=== PATIENT | female | born 1955 | race Caucasian/White ===

== ENCOUNTER 2023-03-30 09:46 | Outpatient (OUT) | payer MEDICARE, OTHER, SELFPAY ==
--- NOTE | 2023-03-30 09:55 | MM_ITS ---
Patient: JESUS WOLF Exam Date: 03/30/2023 : 1955 Gender:F Ordering : DR JANIA SAEED Admission #: [id number] Family : DR PATE TazAjay KAMILA Order #: [id number] CLICK HERE TO VIEW EXAM RADIOLOGY REPORT PROCEDURE: MM TOMOSYNTHESIS SCREENING BI COMPARISON: MG MAMM SCREEN JEANIE W CAD, 04/01/2021. INDICATIONS: Screening mammogram Z12.31 Calculator Name NCI Breast Cancer Risk Assessment Tool 5 Year Breast Cancer Risk 1.30% Lifetime Breast Cancer Risk 4.60% Personal Breast Cancer No Personal Ovarian Cancer No Treatments None Family Cancers Mother with colon cancer at age 72. LOCATION: [facility] BREAST COMPOSITION: Scattered areas fibroglandular density. FINDINGS: DIAGNOSTIC CATEGORY 1--NEGATIVE. RIGHT BREAST: No significant suspicious finding. No significant change has occurred. LEFT BREAST: No significant suspicious finding. No significant change has occurred. RECOMMENDATIONS: ROUTINE MAMMOGRAM AND CLINICAL EVALUATION IN 12 MONTHS. PLEASE NOTE: A NORMAL MAMMOGRAM DOES NOT EXCLUDE THE POSSIBILITY OF BREAST CANCER. A CLINICALLY SUSPICIOUS PALPABLE LUMP SHOULD BE BIOPSIED. Dictated by: Ady Amaro M.D. on 03/31/2023 at 11:47 Approved by: Ady Amaro M.D. on 03/31/2023 at 11:53
== END 2023-03-30 09:47 | disposition home or self-care (01) ==
PROVIDERS: PCP Family Medicine; Visit Provider Nurse Practitioner Family
DX: Z12.31 Encounter for screening mammogram for malignant neoplasm of breast (principal); Z80.0 Family history of malignant neoplasm of digestive organs
CPT/HCPCS: 77063; 77067

== ENCOUNTER 2023-07-27 16:28 | Emergency (ER) | payer MEDICARE, OTHER, SELFPAY ==
[2023-07-27 16:42] VITALS: BP 165/95; PULSE 83; RESP 18; TEMP 36.6; O2SAT 98; BMI 37.8
--- NOTE | 2023-07-27 16:54 | US_ITS ---
[address] [address] Patient Name: JESUS WOLF MRN: [id number] date: 1955 Sex: F Assigned Patient Location: ED.MAIN Current Patient Location: ER Accession/Order Number: [id number] Exam Date: 07/27/2023 18:15 Report Date: 07/27/2023 19:37 At the request of: JOAQUINA PARK Procedure: US pelvis transvaginal EXAM: US pelvis transvaginal; [id number] HISTORY: vaginal bleeding. TECHNIQUE: Real-time transvaginal sonography of the pelvis was performed. Endovaginal ultrasound was performed for better evaluation of the endometrial stripe and adnexa. Doppler ultrasound and spectral waveforms of both ovaries were obtained. COMPARISON: CT abdomen/pelvis 09/28/2022. FINDINGS: UTERUS: Normal size. Position: Anteverted. Neutral. Size: 6.8 x 3 x 3.8 cm. Volume: 40.3 cc. Myometrium is heterogeneous. Fibroids: None. ENDOMETRIUM: There is trace fluid within the endometrium. The endometrium itself is 4 mm in thickness. RIGHT OVARY: Anechoic cyst measuring 3.7 x 3.1 x 2.6 cm, similar compared with 09/28/2022. Size: 4.8 x 3.6 x 3.5 cm. Volume: 31.4 cc. No adnexal masses. Venous and arterial waveforms are within normal limits. LEFT OVARY: Not visualized due to overlying bowel gas and atrophy. PELVIC FLUID: No significant free fluid. US/US pelvis transvaginal IMPRESSION: 1. Small amount fluid within the endometrium without significant endometrial thickening. 2. Anechoic cyst in the right ovary measuring up to 3.7 cm. Recommend follow-up pelvic ultrasound in one year for further evaluation. Electronically authenticated by: HO FERGUSON Date: 07/27/2023 19:37
[2023-07-27] MEDS: 0.9 % SODIUM CHLORIDE 1,000 ML 999 ML IV (17:02)
[2023-07-27 17:23] LABS: Basophils Percent Auto 0.5 % (0.2-2.0); Eosinophils Absolute Auto 0.2 10^3/uL (0.0-0.7); Eosinophils Percent Auto 2.2 % (0.9-7.0); Hemoglobin 13.9 g/dL (12.0-16.0); Immature Granulocytes Abs Auto 0.01 10^3/uL (0.00-0.03); Immature Granulocytes Pct Auto 0.1 % (0.0-0.5); Mean Corpuscular HGB Conc 32.3 g/dL (29.9-35.2); Mean Corpuscular Hemoglobin 31.2 pg (26.7-34.0); Mean Corpuscular Volume 96.4 fL (81.0-99.0); Mean Platelet Volume 10.3 fL (9.5-13.5); Monocytes Absolute Auto 0.9 10^3/uL (0.3-0.8); Monocytes Percent Auto 11.9 % (1.7-12.0); Neutrophils Absolute Auto 4.7 10^3/uL (1.4-6.5); Neutrophils Percent Auto 60.3 % (43.0-75.0); Platelet Count 293 10^3/uL (150-450); Red Blood Count 4.46 10^6/uL (4.20-5.40); Red Cell Distribution Width 12.5 % (11.0-15.0); White Blood Count 7.8 10^3/uL (4.0-11.0)
--- NOTE | 2023-07-27 17:26 | ED_ITS ---
Documented by User: JOSEPH Gonzalez 07/27/23 19:48 HPI - General Chief complaint: Vaginal Bleeding Stated complaint: Vaginal Bleeding Time Seen by Provider: 07/27/23 16:51 Source: patient Mode of arrival: walk-in Limitations: no limitations History of Present Illness HPI Narrative: Patient is a 68-year-old female who presents to the emergency department for vaginal bleeding that began 2 hours ago. She states she has filled 2 feminine pads in the last 2 hours, she denies any abdominal pain. She reports she still has a uterus and both ovaries. She denies fevers, chills, nausea, vomiting. No medications taken prior to arrival. She is on Eliquis. Related Data Home Medications Medication Instructions Recorded Confirmed alendronate 70 mg tablet 70 mg PO .weekly 07/27/23 07/27/23 apixaban 5 mg tablet (Eliquis) 5 mg PO Q12H 07/27/23 07/27/23 atorvastatin 40 mg tablet 40 mg PO QDAY 07/27/23 07/27/23 buspirone 10 mg tablet 10 mg PO .at bedtime 07/27/23 07/27/23 celecoxib 200 mg capsule 200 mg PO Q24H 07/27/23 07/27/23 cholecalciferol (vitamin D3) 50 50 mcg PO DAILY 07/27/23 07/27/23 mcg (2,000 unit) tablet (D3 DOTS) cholestyramine (with sugar) 4 gram 1 ea PO TID 07/27/23 07/27/23 oral powder (Questran) colestipol 1 gram tablet 2 g PO BID 07/27/23 07/27/23 ferrous sulfate 325 mg (65 mg 325 mg PO QDAY 07/27/23 07/27/23 iron) tablet (FeroSul) furosemide 20 mg tablet 40 mg PO QDAY 07/27/23 07/27/23 hydroxychloroquine 200 mg tablet 200 mg PO BID 07/27/23 07/27/23 levothyroxine 75 mcg tablet 75 mcg PO QDAY 07/27/23 07/27/23 mesalamine 1.2 gram tablet,delayed 4.8 g PO Q24H 07/27/23 07/27/23 release metoprolol succinate 50 mg 50 mg PO .COMPLEX 07/27/23 07/27/23 tablet,extended release 24 hr pantoprazole 40 mg tablet,delayed 40 mg PO Q12H 07/27/23 07/27/23 release spironolactone 50 mg tablet 50 mg PO DAILY 07/27/23 07/27/23 sucralfate 100 mg/mL oral 10 ml PO QID 07/27/23 07/27/23 suspension (Carafate) venlafaxine 150 mg 150 mg PO DAILY 07/27/23 07/27/23 capsule,extended release 24 hr (Effexor XR) Allergies Allergy/AdvReac Type Severity Reaction Status Date / Time codeine AdvReac Intermediate Verified 07/27/23 16:53 diphtheria,pertussis AdvReac Intermediate Verified 07/27/23 16:53 (acellular),te [From Boostrix Tdap] prochlorperazine AdvReac Intermediate Verified 07/27/23 16:53 [From Compazine] Sulfa (Sulfonamide AdvReac Intermediate Verified 07/27/23 16:53 Antibiotics) iv contrast AdvReac Intermediate Uncoded 07/27/23 16:53 sulfa AdvReac Intermediate Uncoded 07/27/23 16:53 tykesen AdvReac Intermediate Uncoded 07/27/23 16:53 Review of Systems ROS Constitutional Denies: fever or chills Ears, nose, mouth, and throat Denies: throat pain Cardiovascular Denies: chest pain Respiratory Denies: shortness of breath or cough Gastrointestinal Denies: abdominal pain, nausea or vomiting Genitourinary Denies: painful urination Musculoskeletal Denies: back pain Integumentary/Breast Denies: rash Neurological Denies: headache Hematologic/Lymphatic Reports: easy bruising and easy bleeding PFSH PFSH Social History Smoking status: Never smoker Exam Narrative Exam Narrative: Gen.: Awake, alert, in no distress Head: Normocephalic, atraumatic ENT: Moist mucous membranes Respiratory: No respiratory distress Gastrointestinal: Abdomen is soft, nondistended and nontender to palpation Extremities: Moves extremities equally Psych: Normal mood and affect Neuro: No focal neuro deficit Skin: Warm, dry, intact Constitutional Vital Signs, click to edit/add: Last Vital Signs Temp 97.9 F 07/27/23 16:42 Pulse 75 07/27/23 20:12 Resp 16 07/27/23 20:12 BP 114/64 07/27/23 19:18 Pulse Ox 98 07/27/23 20:12 O2 Del Method Room Air 07/27/23 20:12 Course Vital Signs Vital signs: Vital Signs Temperature 97.9 F 07/27/23 16:42 Pulse Rate 83 07/27/23 16:42 Respiratory Rate 18 07/27/23 16:42 Blood Pressure 165/95 H 07/27/23 16:42 Pulse Oximetry 98 07/27/23 16:42 Oxygen Delivery Method Room Air 07/27/23 16:42 Temperature 97.9 F 07/27/23 16:42 Pulse Rate 75 07/27/23 20:12 Respiratory Rate 16 07/27/23 20:12 Blood Pressure 114/64 07/27/23 19:18 Pulse Oximetry 98 07/27/23 20:12 Oxygen Delivery Method Room Air 07/27/23 20:12 MDM - OB/Uterine Contractions MDM Narrative Medical decision making narrative: Lab studies show hemoglobin is normal at 13.9, patient with stable vital signs, no hypotension or tachycardia. Ultrasound with minimal fluid in the endometrium, no significant thickening or mass. Discussed with Dr. Young for POND SUPERVISOR, we will defer Provera at this time as symptoms just began several hours ago. Patient was given education and reassurance on reevaluation by attending physician. Her urine shows blood, she did pass a blood clot with providing a urine specimen. She has no pain in the ER, abdomen is soft and benign and she is discharged home to follow-up with gynecology. Return to the ER if symptoms change or worsen. Medical Records Attestation: I reviewed the patient's medical records. Lab Data Attestation: I reviewed the patient's lab results. Labs: Lab Results 07/27/23 07/27/23 Range/Units 17:00 17:50 WBC 7.8 (4.0-11.0) 10^3/uL RBC 4.46 (4.20-5.40) 10^6/uL Hgb 13.9 (12.0-16.0) g/dL Hct 43.0 (36.0-48.0) % MCV 96.4 (81.0-99.0) fL MCH 31.2 (26.7-34.0) pg MCHC 32.3 (29.9-35.2) g/dL RDW 12.5 (11.0-15.0) % Plt Count 293 (150-450) 10^3/uL MPV 10.3 (9.5-13.5) fL Neut % (Auto) 60.3 (43.0-75.0) % Lymph % (Auto) 25.0 (20.5-60.0) % [place] % (Auto) 11.9 (1.7-12.0) % Eos % (Auto) 2.2 (0.9-7.0) % Baso % (Auto) 0.5 (0.2-2.0) % Neut # (Auto) 4.7 (1.4-6.5) 10^3/uL Lymph # (Auto) 2.0 (1.2-3.8) 10^3/uL [place] # (Auto) 0.9 H (0.3-0.8) 10^3/uL Eos # (Auto) 0.2 (0.0-0.7) 10^3/uL Baso # (Auto) 0.0 (0.0-0.1) 10^3/uL Abs Immat Gran (auto) 0.01 (0.00-0.03) 10^3/uL Imm/Tot Granulo (auto) 0.1 (0.0-0.5) % PT 11.1 (9.0-11.6) sec INR 1.05 Sodium 136 (136-145) mmol/L Potassium 5.1 (3.5-5.1) mmol/L Chloride 104 (98-107) mmol/L Carbon Dioxide 21.3 (21.0-32.0) mmol/L Anion Gap 15.8 BUN 42.0 H (7.0-18.0) mg/dL Creatinine 1.45 H (0.55-1.02) mg/dL Est GFR ( Amer) 44 L (>=60) Est GFR (Non-Af Amer) 36 L (>=60) BUN/Creatinine Ratio 29.0 Glucose 113 H (74-106) mg/dL Calcium 9.3 (8.5-10.1) mg/dL Total Bilirubin 0.5 (0.2-1.0) mg/dL AST 25 (15-37) U/L ALT 31 (14-59) U/L Alkaline Phosphatase 130 H (46-116) U/L Total Protein 7.4 (6.4-8.2) g/dL Albumin 4.2 (3.4-5.0) g/dL Globulin 3.2 g/dL Albumin/Globulin Ratio 1.3 Urine Color Red A (YELLOW) Urine Clarity Sl cloudy (CLEAR) Urine pH 5.5 (5.0-9.0) Ur Specific [place] 1.010 (1.005-1.025) Urine Protein Trace (NEG/TRACE) mg/dL Urine Glucose (UA) Negative (NEGATIVE) mg/dL Urine Ketones Negative (NEGATIVE) mg/dL Urine Occult Blood Large A (NEGATIVE) Urine Nitrite Negative (NEGATIVE) Urine Bilirubin Negative (NEGATIVE) Urine Urobilinogen 0.2 (0.2-1.0) EU/dL Ur Leukocyte Esterase Negative (NEGATIVE) Urine RBC 75-100 A (0-2) #/HPF Urine WBC None seen (NONE SEEN) #/HPF Ur Squamous Epith Cells Rare (NONE/RARE) #/LPF Urine Crystals None seen (None Seen) #/HPF Urine Bacteria Trace A (NONE SEEN) #/HPF Urine Casts None seen (NONE SEEN) #/LPF Urine Mucus None seen (NONE SEEN) Ur Culture Indicated? No Imaging Data US pelvis: Attestation: I have reviewed the pertinent imaging results. Radiologist's impression: Procedure: US pelvis transvaginal EXAM: US pelvis transvaginal; [id number] HISTORY: vaginal bleeding. TECHNIQUE: Real-time transvaginal sonography of the pelvis was performed. Endovaginal ultrasound was performed for better evaluation of the endometrial stripe and adnexa. Doppler ultrasound and spectral waveforms of both ovaries were obtained. COMPARISON: CT abdomen/pelvis 09/28/2022. FINDINGS: UTERUS: Normal size. Position: Anteverted. Neutral. Size: 6.8 x 3 x 3.8 cm. Volume: 40.3 cc. Myometrium is heterogeneous. Fibroids: None. ENDOMETRIUM: There is trace fluid within the endometrium. The endometrium itself is 4 mm in thickness. RIGHT OVARY: Anechoic cyst measuring 3.7 x 3.1 x 2.6 cm, similar compared with 09/28/2022. Size: 4.8 x 3.6 x 3.5 cm. Volume: 31.4 cc. No adnexal masses. Venous and arterial waveforms are within normal limits. LEFT OVARY: Not visualized due to overlying bowel gas and atrophy. PELVIC FLUID: No significant free fluid. IMPRESSION: 1. Small amount fluid within the endometrium without significant endometrial thickening. 2. Anechoic cyst in the right ovary measuring up to 3.7 cm. Recommend follow-up pelvic ultrasound in one year for further evaluation. Electronically authenticated by: HO FERGUSON Date: 07/27/2023 19:37 Discharge Plan Discharge Chief Complaint: Vaginal Bleeding Clinical Impression: Vaginal bleeding Patient Disposition: Home, Self-Care Time of Disposition Decision: 19:47 Condition: Good Prescriptions / Home Meds: No Action atorvastatin 40 mg tablet 40 mg PO QDAY celecoxib 200 mg capsule 200 mg PO Q24H venlafaxine [Effexor XR] 150 mg capsule,extended release 24hr 150 mg PO DAILY hydroxychloroquine 200 mg tablet 200 mg PO BID Patient Comments: with food cholecalciferol (vitamin D3) [D3 DOTS] 50 mcg (2,000 unit) tablet 50 mcg PO DAILY Eliquis 5 mg tablet 5 mg PO Q12H furosemide 20 mg tablet 40 mg PO QDAY mesalamine 1.2 gram tablet,delayed release (DR/EC) 4.8 g PO Q24H buspirone 10 mg tablet 10 mg PO .at bedtime colestipol 1 gram tablet 2 g PO BID ferrous sulfate [FeroSul] 325 mg (65 mg iron) tablet 325 mg PO QDAY levothyroxine 75 mcg tablet 75 mcg PO QDAY metoprolol succinate 50 mg tablet extended release 24 hr 50 mg PO .COMPLEX Rx Instructions: 50 mg orally 1 tablet in the morning and 2 tablets in the evening; pantoprazole 40 mg tablet,delayed release (DR/EC) 40 mg PO Q12H spironolactone 50 mg tablet 50 mg PO DAILY sucralfate [Carafate] 100 mg/mL suspension 10 ml PO QID Rx Instructions: swish in mouth and spit out; use after food and/or drink alendronate 70 mg tablet 70 mg PO .weekly cholestyramine (with sugar) [Questran] 4 gram powder 1 ea PO TID Instructions: Abnormal (Dysfunctional) Uterine Bleeding (ED) Stand Alone Forms: Portal Instructions Referrals: Neno Young DO [Physician] - As soon as possible RIO TREVIÑO [Primary Care Provider] - 1 week Discharge Date/Time: 07/27/23 20:14 Documented by User: Katy Garcia MD 07/27/23 20:16 HPI - General Chief complaint: Vaginal Bleeding Stated complaint: Vaginal Bleeding Time Seen by Provider: 07/27/23 16:51 Related Data Home Medications Medication Instructions Recorded Confirmed alendronate 70 mg tablet 70 mg PO .weekly 07/27/23 07/27/23 apixaban 5 mg tablet (Eliquis) 5 mg PO Q12H 07/27/23 07/27/23 atorvastatin 40 mg tablet 40 mg PO QDAY 07/27/23 07/27/23 buspirone 10 mg tablet 10 mg PO .at bedtime 07/27/23 07/27/23 celecoxib 200 mg capsule 200 mg PO Q24H 07/27/23 07/27/23 cholecalciferol (vitamin D3) 50 50 mcg PO DAILY 07/27/23 07/27/23 mcg (2,000 unit) tablet (D3 DOTS) cholestyramine (with sugar) 4 gram 1 ea PO TID 07/27/23 07/27/23 oral powder (Questran) colestipol 1 gram tablet 2 g PO BID 07/27/23 07/27/23 ferrous sulfate 325 mg (65 mg 325 mg PO QDAY 07/27/23 07/27/23 iron) tablet (FeroSul) furosemide 20 mg tablet 40 mg PO QDAY 07/27/23 07/27/23 hydroxychloroquine 200 mg tablet 200 mg PO BID 07/27/23 07/27/23 levothyroxine 75 mcg tablet 75 mcg PO QDAY 07/27/23 07/27/23 mesalamine 1.2 gram tablet,delayed 4.8 g PO Q24H 07/27/23 07/27/23 release metoprolol succinate 50 mg 50 mg PO .COMPLEX 07/27/23 07/27/23 tablet,extended release 24 hr pantoprazole 40 mg tablet,delayed 40 mg PO Q12H 07/27/23 07/27/23 release spironolactone 50 mg tablet 50 mg PO DAILY 07/27/23 07/27/23 sucralfate 100 mg/mL oral 10 ml PO QID 07/27/23 07/27/23 suspension (Carafate) venlafaxine 150 mg 150 mg PO DAILY 07/27/23 07/27/23 capsule,extended release 24 hr (Effexor XR) Allergies Allergy/AdvReac Type Severity Reaction Status Date / Time codeine AdvReac Intermediate Verified 07/27/23 16:53 diphtheria,pertussis AdvReac Intermediate Verified 07/27/23 16:53 (acellular),te [From Boostrix Tdap] prochlorperazine AdvReac Intermediate Verified 07/27/23 16:53 [From Compazine] Sulfa (Sulfonamide AdvReac Intermediate Verified 07/27/23 16:53 Antibiotics) iv contrast AdvReac Intermediate Uncoded 07/27/23 16:53 sulfa AdvReac Intermediate Uncoded 07/27/23 16:53 tykesen AdvReac Intermediate Uncoded 07/27/23 16:53 PFSH PFSH Social History Smoking status: Never smoker Exam Constitutional Vital Signs, click to edit/add: Last Vital Signs Temp 97.9 F 07/27/23 16:42 Pulse 75 07/27/23 20:12 Resp 16 07/27/23 20:12 BP 114/64 07/27/23 19:18 Pulse Ox 98 07/27/23 20:12 O2 Del Method Room Air 07/27/23 20:12 Course Vital Signs Vital signs: Vital Signs Temperature 97.9 F 07/27/23 16:42 Pulse Rate 83 07/27/23 16:42 Respiratory Rate 18 07/27/23 16:42 Blood Pressure 165/95 H 07/27/23 16:42 Pulse Oximetry 98 07/27/23 16:42 Oxygen Delivery Method Room Air 07/27/23 16:42 Temperature 97.9 F 07/27/23 16:42 Pulse Rate 75 07/27/23 20:12 Respiratory Rate 16 07/27/23 20:12 Blood Pressure 114/64 07/27/23 19:18 Pulse Oximetry 98 07/27/23 20:12 Oxygen Delivery Method Room Air 07/27/23 20:12 MDM - OB/Uterine Contractions MDM Narrative Medical decision making narrative: Lab studies show hemoglobin is normal at 13.9, patient with stable vital signs, no hypotension or tachycardia. Ultrasound with minimal fluid in the endometrium, no significant thickening or mass. Discussed with Dr. Young for POND SUPERVISOR, we will defer Provera at this time as symptoms just began several hours ago. Patient was given education and reassurance on reevaluation by attending physician. Her urine shows blood, she did pass a blood clot with providing a urine specimen. She has no pain in the ER, abdomen is soft and benign and she is discharged home to follow-up with gynecology. Return to the ER if symptoms change or worsen. Patient was seen and evaluated in conjunction with the physician nursing home assistant administrator. Please refer to her full H and P. This patient is on Eliquis and started having painless vaginal bleeding earlier today. She is not sexually active and denies any pelvic area trauma. I reviewed her ultrasound with her. I performed a pelvic exam with JITENDRA peguero as my dude wrangler. There was a small amount of bleeding on the external genitalia which was wiped away and did not exhibit any abnormality or active bleeding. A pelvic exam was also performed. It was a normal visual inspection. There was a small amount of blood in the vaginal vault which was wiped away and there was no recurrence bleeding or hemorrhaging noted. I did explain to the patient that blood will pull in the vaginal vault and when she stands up there may be clots. She will be referred to outpatient POND SUPERVISOR for further evaluation and biopsy if deemed appropriate. This was also discussed with the patient and her daughter. They verbalize understanding. She remained hemodynamically stable in emergency department and was discharged home with a copy of her ultrasound. No medications were prescribed at this time and she was given anticipatory guidance. Lab Data Labs: Lab Results 07/27/23 07/27/23 Range/Units 17:00 17:50 WBC 7.8 (4.0-11.0) 10^3/uL RBC 4.46 (4.20-5.40) 10^6/uL Hgb 13.9 (12.0-16.0) g/dL Hct 43.0 (36.0-48.0) % MCV 96.4 (81.0-99.0) fL MCH 31.2 (26.7-34.0) pg MCHC 32.3 (29.9-35.2) g/dL RDW 12.5 (11.0-15.0) % Plt Count 293 (150-450) 10^3/uL MPV 10.3 (9.5-13.5) fL Neut % (Auto) 60.3 (43.0-75.0) % Lymph % (Auto) 25.0 (20.5-60.0) % [place] % (Auto) 11.9 (1.7-12.0) % Eos % (Auto) 2.2 (0.9-7.0) % Baso % (Auto) 0.5 (0.2-2.0) % Neut # (Auto) 4.7 (1.4-6.5) 10^3/uL Lymph # (Auto) 2.0 (1.2-3.8) 10^3/uL [place] # (Auto) 0.9 H (0.3-0.8) 10^3/uL Eos # (Auto) 0.2 (0.0-0.7) 10^3/uL Baso # (Auto) 0.0 (0.0-0.1) 10^3/uL Abs Immat Gran (auto) 0.01 (0.00-0.03) 10^3/uL Imm/Tot Granulo (auto) 0.1 (0.0-0.5) % PT 11.1 (9.0-11.6) sec INR 1.05 Sodium 136 (136-145) mmol/L Potassium 5.1 (3.5-5.1) mmol/L Chloride 104 (98-107) mmol/L Carbon Dioxide 21.3 (21.0-32.0) mmol/L Anion Gap 15.8 BUN 42.0 H (7.0-18.0) mg/dL Creatinine 1.45 H (0.55-1.02) mg/dL Est GFR ( Amer) 44 L (>=60) Est GFR (Non-Af Amer) 36 L (>=60) BUN/Creatinine Ratio 29.0 Glucose 113 H (74-106) mg/dL Calcium 9.3 (8.5-10.1) mg/dL Total Bilirubin 0.5 (0.2-1.0) mg/dL AST 25 (15-37) U/L ALT 31 (14-59) U/L Alkaline Phosphatase 130 H (46-116) U/L Total Protein 7.4 (6.4-8.2) g/dL Albumin 4.2 (3.4-5.0) g/dL Globulin 3.2 g/dL Albumin/Globulin Ratio 1.3 Urine Color Red A (YELLOW) Urine Clarity Sl cloudy (CLEAR) Urine pH 5.5 (5.0-9.0) Ur Specific [place] 1.010 (1.005-1.025) Urine Protein Trace (NEG/TRACE) mg/dL Urine Glucose (UA) Negative (NEGATIVE) mg/dL Urine Ketones Negative (NEGATIVE) mg/dL Urine Occult Blood Large A (NEGATIVE) Urine Nitrite Negative (NEGATIVE) Urine Bilirubin Negative (NEGATIVE) Urine Urobilinogen 0.2 (0.2-1.0) EU/dL Ur Leukocyte Esterase Negative (NEGATIVE) Urine RBC 75-100 A (0-2) #/HPF Urine WBC None seen (NONE SEEN) #/HPF Ur Squamous Epith Cells Rare (NONE/RARE) #/LPF Urine Crystals None seen (None Seen) #/HPF Urine Bacteria Trace A (NONE SEEN) #/HPF Urine Casts None seen (NONE SEEN) #/LPF Urine Mucus None seen (NONE SEEN) Ur Culture Indicated? No Discharge Plan Discharge Chief Complaint: Vaginal Bleeding Clinical Impression: Vaginal bleeding Patient Disposition: Home, Self-Care Time of Disposition Decision: 19:47 Condition: Good Prescriptions / Home Meds: No Action atorvastatin 40 mg tablet 40 mg PO QDAY celecoxib 200 mg capsule 200 mg PO Q24H venlafaxine [Effexor XR] 150 mg capsule,extended release 24hr 150 mg PO DAILY hydroxychloroquine 200 mg tablet 200 mg PO BID Patient Comments: with food cholecalciferol (vitamin D3) [D3 DOTS] 50 mcg (2,000 unit) tablet 50 mcg PO DAILY Eliquis 5 mg tablet 5 mg PO Q12H furosemide 20 mg tablet 40 mg PO QDAY mesalamine 1.2 gram tablet,delayed release (DR/EC) 4.8 g PO Q24H buspirone 10 mg tablet 10 mg PO .at bedtime colestipol 1 gram tablet 2 g PO BID ferrous sulfate [FeroSul] 325 mg (65 mg iron) tablet 325 mg PO QDAY levothyroxine 75 mcg tablet 75 mcg PO QDAY metoprolol succinate 50 mg tablet extended release 24 hr 50 mg PO .COMPLEX Rx Instructions: 50 mg orally 1 tablet in the morning and 2 tablets in the evening; pantoprazole 40 mg tablet,delayed release (DR/EC) 40 mg PO Q12H spironolactone 50 mg tablet 50 mg PO DAILY sucralfate [Carafate] 100 mg/mL suspension 10 ml PO QID Rx Instructions: swish in mouth and spit out; use after food and/or drink alendronate 70 mg tablet 70 mg PO .weekly cholestyramine (with sugar) [Questran] 4 gram powder 1 ea PO TID Instructions: Abnormal (Dysfunctional) Uterine Bleeding (ED) Stand Alone Forms: Portal Instructions Referrals: Neno Young DO [Physician] - As soon as possible RIO TREVIÑO [Primary Care Provider] - 1 week Discharge Date/Time: 07/27/23 20:14
[2023-07-27 17:40] LABS: Alanine Aminotransferase 31 U/L (14-59); Albumin Globulin Ratio 1.3; Albumin Level 4.2 g/dL (3.4-5.0); Alkaline Phosphatase 130 U/L (46-116); Anion Gap 15.8; Aspartate Amino Transferase 25 U/L (15-37); Bilirubin Total 0.5 mg/dL (0.2-1.0); Calcium 9.3 mg/dL (8.5-10.1); Carbon Dioxide 21.3 mmol/L (21.0-32.0); Chloride 104 mmol/L (98-107); Estimated GFR (African America 44 (>=60); Estimated GFR (Non-African Ame 36 (>=60); Globulin 3.2 g/dL; Glucose 113 mg/dL (74-106); INR 1.05; Potassium 5.1 mmol/L (3.5-5.1); Prothrombin Time 11.1 sec (9.0-11.6); Sodium 136 mmol/L (136-145); Total Protein 7.4 g/dL (6.4-8.2)
[2023-07-27 18:26] LABS: Bilirubin Urine NEGATIVE (NEGATIVE); Blood Urine LARGE (NEGATIVE); Clarity Urine SL CLOUDY (CLEAR); Color Urine RED (YELLOW); Glucose Urine UA NEGATIVE (NEGATIVE); Ketones Urine NEGATIVE (NEGATIVE); Leukocyte Esterase Urine NEGATIVE (NEGATIVE); Nitrite Urine NEGATIVE (NEGATIVE); Protein Urine TRACE mg/dL (NEG/TRACE); Urobilinogen Urine 0.2 EU/dL (0.2-1.0); pH Urine 5.5 (5.0-9.0)
[2023-07-27 18:33] LABS: Urine Microscopic Indicated YES
[2023-07-27 18:37] LABS: Bacteria Urine TRACE #/HPF (NONE SEEN); Mucus Urine NONE SEEN (NONE SEEN); RBC Urine 75-100 #/HPF (0-2); Squamous Epithelial Cell Urine RARE #/LPF (NONE/RARE); WBC Urine NONE SEEN #/HPF (NONE SEEN)
[2023-07-27 18:38] LABS: Cast Seen? NONE SEEN #/LPF (NONE SEEN); Crystals Seen? None Seen #/HPF (None Seen); Urine Culture Indicated NO
[2023-07-27 19:18] VITALS: BP 114/64; PULSE 78; RESP 14; O2SAT 95
[2023-07-27 20:12] VITALS: PULSE 75; RESP 16; O2SAT 98
== END 2023-07-27 20:14 | disposition home or self-care (01) ==
PROVIDERS: Physician Assistant; Emergency Provider Emergency Medicine; PCP Family Medicine
DX: N93.9 Abnormal uterine and vaginal bleeding, unspecified (principal); Z79.01 Long term (current) use of anticoagulants; Z79.899 Other long term (current) drug therapy
CPT/HCPCS: 36415; 76830; 80053; 81001; 85025; 85610; 99285

== ENCOUNTER 2023-08-05 14:11 | Outpatient (REF) | payer MEDICARE, OTHER, SELFPAY ==
--- OUTSIDE RECORDS SUMMARY | 2023-09-15 14:02 | XMS_ITS | CCD ---
Author Name Unknown Address [address] [place] [id number] Organization [facility] Care Team Providers [facility] Chief Name Role Phone YURIY CONWAY Attending Unavailable WOJCIECH TREVIÑO Primary Care Unavailable YURIY CONWAY Attending Unavailable MAXLONGWOJCIECH Primary Care Unavailable Wojciech Treviño Primary Care Provider Wojciech Treviño DO Primary Care Provider DO Wojciech Treviño Primary Care Provider MD Chapincito Barraza Emergency Provider [phone] MD Hussain Cat Admit Provider MD Hussain Cat Attending Provider DO Rachelle Frazier Other Provider DO Petey Junior Emergency Provider [phone] Wojciech Treviño DO Primary Care Provider Daphneng DO, Wojciech Francisco Javier Primary Care Provider Maxlong DO, Wojciech Francisco Javier Primary Care Provider Wojciech Treviño G Unavailable Unavailable Unavailable Wojciech Treviño Primary Care Unavailab Dr. Yuriy Driscoll Referring [place] vailable Dr. Yuriy Conway Attending [place] vailable Wojciech Treviño Primary Care Unavailable Petey Junior Attending Unavailable Petey Junior Admitting Unavailable Rachelle Frazier Consulting Unavailable Furlong, Wojciech Primary Care Unavailable DoHussain holm Attending Unavailab le DoameHussain sparrow Admitting Unavailab le [id number], Dr. Yan Attending Unavailable [id number], Dr. Yan Referring Unavailable Furlong, Wojciech Francisco Javier Primary Care Unavailab le [id number], Dr. Yan Attending Unavailable [id number], Dr. Yan Referring Unavailable Furlong, Wojciech Francisco Javier Primary Care Unavailab le [id number], Dr. Yan Attending Unavailable [id number], Dr. Yan Referring Unavailable Furlong, Wojciech Francisco Javier Primary Care Unavailab le REINECK, DR MIRTHA Johnston Admitting Unavailabl e REINECK, DR MIRTHA Johnston Attending Unavailabl e FURLONG, DR WOJCIECH Johnston Primary Care Unavailable HAY ., DR ROTH Consulting Unavailable YAROSH .BEVERLY Consulting Unavailable MISC, DR RIVERS Consulting Unavailable MISC, DR RIVERS Attending Unavailable FURLONG, DR WOJCIECH Johnston Primary Care Unavailable MISC, DR RIVERS Admitting Unavailable FURLONG, DR WOJCIECH Johnston Primary Care Unavailable DEEPA ., MIKE Admitting Unavailable DEEPA ., MIKE Consulting Unavailable DEEPA ., MIKE Attending Unavailable JENA WEN Consulting Unavailable SENAIT KELSEY Consulting Unavailable FURLONG, WOJCIECH FRANCISCO JAVIER Primary Care Unavailab le ROSETTASTEPHANIE Referring Unavailable FURLONG, WOJCIECH FRANCISCO JAVIER Primary Care Unavailab le FURLONG, WOJCIECH FRANCISCO JAVIER Primary Care Unavailab BRYAN Taveras Attending Unavailable BRAYN PAINTING Admitting Unavailable FURLONG, WOJCIECH FRANCISCO JAVIER Primary Care Unavailab le ROSETTAJULIA Referring Unavailable FURLONG, WOJCIECH FRANCISCO JAVIER Primary Care Unavailab NADEGE Malloy Attending Unavailable FURLONG, WOJCIECH FRANCISCO JAVIER Primary Care Unavailab DIONE Rodriguez Attending Unavailable FURLONG, WOJCIECH FRANCISCO JAVIER Primary Care Unavailab BRYAN Taveras Referring Unavailable BEVERLY FRANCO Attending Unavailable FURLONG, WOJCIECH FRANCISCO JAVIER Primary Care Unavailab le FURLONG, WOJCIECH FRANCISCO JAVIER Primary Care Unavailab DALILA Samaniego Admitting Unavailab le FURLONG, WOJCIECH FRANCISCO JAVIER Primary Care Unavailab DALILA Samaniego Referring Unavailab DALILA Samaniego Attending Unavailab le FURLONG, WOJCIECH FRANCISCO JAVIER Primary Care Unavailab elisa ROSETTAJULIA Referring Unavailable FURLONG, WOJCIECH FRANCISCO JAVIER Primary Care Unavailab le FURLONG, WOJCIECH FRANCISCO JAVIER Primary Care Unavailab DIONE Rodriguez Referring Unavailable DALILA CERVANTES Admitting Unavailab le FURLONG, WOJCIECH FRANCISCO JAVIER Primary Care Unavailab DALILA Samaniego Referring Unavailab DALILA Samaniego Attending Unavailab le FURLONG, WOJCIECH FRANCISCO JAVIER Primary Care Unavailab BEVERLY Delgadillo Attending Unavailable FURLONG, WOJCIECH FRANCISCO JAVIER Primary Care Unavailab le BEVERLY FRANCO Attending Unavailable FURLONG, WOJCIECH FRANCISCO JAVIER Primary Care Unavailab NADEGE Malloy Attending Unavailable BEVERLY FRANCO Attending Unavailable FURLONG, WOJCIECH FRANCISCO JAVIER Primary Care Unavailab le FURLONG, WOJCIECH FRANCISCO JAVIER Primary Care Unavailab le ROSETTAJULIA Referring Unavailable FURLONG, WOJCIECH FRANCISCO JAVIER Primary Care Unavailab BEVERLY Delgadillo Attending Unavailable FURLONG, WOJCIECH FRANCISCO JAVIER Primary Care Unavailab le FURLONG, WOJCIECH FRANCISCO JAVIER Primary Care Unavailab le ROSETTAJULIA Attending Unavailable FURLONG, WOJCIECH FRANCISCO JAVIER Primary Care Unavailab le FURLONG, WOJCIECH FRANCISCO JAVIER Primary Care Unavailab DIONE Rodriguez Referring Unavailable RADHA HERMOSILLO Attending Unavailable FURLONG, WOJCIECH FRANCISCO JAVIER Primary Care Unavailab BEVERLY Delgadillo Attending Unavailable Luís ALVAREZ-WAREHOUSE MANAGERJania Primary Care Provider AUGUST YOUNG Attending Unavailable AUGUST YOUNG Attending Unavailable JANIA SAEED Attending Unavailable JANIA SAEED Referring Unavailable JANIA SAEED Primary Care Unavailable Allergies Allergy Classification Reported Allergen(s) Allergy Type Date of Onset Reaction(s) Facility (20 sources) Codeine; Translations: [codeine] Drug Allergy 02-22-20 10 Other: See Comments [facility] (20 sources) Contrast media; Translations: [CONTRAST DYE] Drug Allergy 08-28-19 11 Other: See Comments [facility] (20 sources) dofetilide; Translations: [Tikosyn] Drug Allergy 03-15-20 20 Other: See Comments, Anaphylaxis, GI Disturbance, Palpitations [facility] (20 sources) Prochlorperazine; Translations: [PROCHLORPERAZINE EDISYLATE] Drug Allergy 02-22-20 10 Other: See Comments [facility] (20 sources) Sulfonamides (Antibiotic); Translations: [SULFA (SULFONAMIDE ANTIBIOTICS)] Drug Intolerance 02-22-20 10 Vomiting [facility] (10 sources) Tetanus Vaccines And Toxoid; Translations: [TETANUS VACCINES AND TOXOID] Drug Intolerance 02-22-20 10 Other: See Comments [facility] (16 sources) EPINEPHrine; Translations: [epinephrine] Drug Allergy 03-07-20 10 Palpitations [facility] (4 sources) Prochlorperazine; Translations: [prochlorperazine] Drug Allergy 02-08-20 22 Unknown Reaction [facility] (4 sources) tetanus and diphtheria toxoids; Translations: [tetanus and diphtheria toxoids] Allergy to substance 02-08-20 22 Redness of Skin [facility] (6 sources) Iodinated Contrast Media; Translations: [Iodinated Contrast Media] Propensity to adverse reactions 08-28-19 11 Flushing [facility] (20 sources) Tetanus Vaccines And Toxoid Drug Intolerance 02-22-20 10 Other: See Comments [facility] (8 sources) Contrast media Allergy to substance (finding) [facility] [place] [address] DO Work Phone: (8 sources) diphtheria toxoid vaccine, inactivated / tetanus toxoid vaccine, inactivated; Translations: [Tetanus-Diphtheria Toxoids Td SUSP] Drug Allergy Other [facility] [place] [address] DO Work Phone: (8 sources) Prochlorperazine; Translations: [Compazine] Drug Allergy [facility] [place] [address] DO Work Phone: (8 sources) Sulfamethoxazole; Translations: [sulfa] Drug Allergy [facility] [place] [address] DO Work Phone: (8 sources) Sulfonamides (Antibiotic); Translations: [Sulfa Antibiotics] Allergy to drug (finding) Swelling, Vomiting [facility] [place] [address] DO Work Phone: (8 sources) Tdap; Translations: [Tdap] Allergy to drug (finding) -[facility] [place] [address] DO Work Phone: (1 source) Codeine Drug Allergy 02-14-20 [facility] (1 source) dofetilide Drug Allergy 02-14-20 [facility] (1 source) Sulfonamides (Antibiotic) Drug allergy (disorder) 02-14-20 [facility] (1 source) Allopurinol Drug Allergy [facility] (1 source) Codeine Drug Allergy [facility] (1 source) dofetilide Drug Allergy [facility] (1 source) Iodine (And Iodine Containting Drugs) Drug allergy (disorder) [facility] (1 source) Prochlorperazine Drug Allergy [facility] (20 sources) Iodine; Translations: [IODINE] Drug Allergy 02-05-20 Unknown, Other: See Comments [facility] (4 sources) diphtheria toxoid vaccine, inactivated / tetanus toxoid vaccine, inactivated; Translations: [TETANUS AND DIPHTHER. TOX (PF)] Drug Allergy 04-23-20 Rash [facility] (3 sources) acellular pertussis vaccine, inactivated / diphtheria toxoid vaccine, inactivated / tetanus toxoid vaccine, inactivated; Translations: [DIPHTH,PERTUS(ACEL L),TETANUS] Drug Allergy 06-10-20 23 Other (See Comments) [facility] (3 sources) Diphtheria,Pertussi s(Acell),Tetanus Pedi Vaccine; Translations: [DIPHTHERIA,PERTUSS IS(ACELL),TETANUS PEDI VACCINE] Propensity to adverse reactions to drug 06-10-20 23 Other (See Comments) [facility] Medications Current Medications Medication Drug Class(es) Dates Sig (Normalized) Sig (Original) alendronic acid 70 mg oral tablet (20 sources) Bisphosphonate Start: 05-12-2022 End: 10-16-2023 take 1 tablet by mouth every week in the morning alendronate (FOSAMAX) 70 mg tablet take 1 tablet by mouth ONE TIME A WEEK IN THE MORNING WITH A FULL... (REFER TO PRESCRIPTION NOTES). 0 05/12/2022 Active Start: 04-03-2019 End: 02-07-2022 take 70 mg by mouth every week Alendronate Discontinue d 70 MG PO every week April 03, 2019 5:52pm February 07, 2022 5:11pm Comment on above: Take 1 tablet by radha th one time a week. In the morning with a full glass of water, on an empty stomach. Do not take anything else by mouth or lie down for the next 30 minutes. alendronic acid 70 mg / cholecalciferol 2800 unt oral tablet (3 sources) Bisphosphonate, Vitamin D take 1 tablet by mouth in the morning alendronate-vitam in D3 (FOSAMAX PLUS D) 70 mg- 2,800 unit per tablet Take 1 tablet by mouth every 7 days. In a.m. with water on empty stomach, nothing else by mouth and remain upright for 30min 0 Active apixaban 5 mg oral tablet (20 sources) Factor Xa Inhibitor Start: 3 take 1 tablet by mouth in the morning, then take 1 tablet by mouth at bedtime apixaban (ELIQUIS) 5 mg tablet Take 1 tablet (5 mg total) by mouth in the morning and 1 tablet (5 mg total) before bedtime. 0 12/21/2022 Active Start: 05-08-2019 End: 09-26-2021 take 1 tablet by mouth twice daily apixaban (ELIQUIS) 5 mg tab(s) Take 1 tablet by mouth twice daily. 180 tablet 3 09/08/2020 09/26/2021 Discontinued Comment on above: Take 1 tablet by radha twice daily. Take 5 mg by mouth t wice daily. belimumab 120 mg injection (20 sources) B Lymphocyte Stimulator-specific Inhibitor Start: 0 take 1 mg intravenously every three months Belimumab Active 10 mg/kg IV As Directed September 18, 2019 4:21pm EVERY THREE MONTHS Start: 04-25-2019 Benlysta 120 M G Intravenous Solution Reconstituted Quantity: 0 Refills: 0 Ordered: 25-Apr-2019 DO Start : 25-Apr-2019 Active Start: 04-03-2019 End: 06-19-2019 take 1 mg intravenously every three months Belimumab Discontinued 10 mg/kg IV EVERY 3 MONTHS April 03, 2019 5:52pm June 19, 2019 12:46pm Start: 12-25-2016 belimumab (KARLA LYSTA) 80 mg/mL recon soln Infuse 1.5 mL (120 mg total) into a venous catheter every 60 (sixty) days. 0 12/25/2016 Active belimumab (BENLY STA INTRAVENOUS) Inject intravenously. Patient reports she receives infusion every 3 months 0 Suspended belimumab (BENLY STA INTRAVENOUS) Inject intravenously. Patient reports she receives infusion every 3 months 0 Active Comment on above: Inject intravenously . Patient reports she receives infusion every 3 months bifidobacterium infantis 4 mg oral capsule (20 sources) Start: 022 take 1 capsule by mouth once daily Bifidobacterium Infantis (Align) 4 mg Capsule Active 4 MG PO Daily February 07, 2022 4:59pm Bifidobacterium infantis (ALIGN) 10.5 mg (10 million cell) tablet,chewable Align one daily 0 Active Align CAPS USE A S DIRECTED. Quantity: 0 Refills: 0 Ordered: 01-Aug-2022 DO Active Bifidobacterium infantis (ALIGN ORAL) Take by mouth once daily. 0 Suspended Bifidobacterium infantis (ALIGN ORAL) Take by mouth once daily. 0 Active Comment on above: Take by mouth once d aily. calcium carbonate 1250 mg / cholecalciferol 200 unt oral tablet (20 sources) Vitamin D Start: 08-27-2022 take 1 tablet by mouth three times daily calcium carbonate-vitamin D3 (OSCAL 500 + D) 500 mg(1,250mg) -200 units per tablet Take 1 tablet by mouth 3 (three) times a day. 0 08/27/2022 Active Start: 09-18-2019 End: 02-07-2022 take 2 tablets by mouth once daily Calcium Carbonate-Vitamin D3 (Calcium 600 + D(3)) 600-125 mg-unit Tablet Discontinued 2 TAB PO Daily September 18, 2019 4:21pm February 07, 2022 5:11pm Start: 04-03-2019 End: 06-19-2019 take 1 tablet by mouth once daily Calcium Carbonate-Vitamin D3 (Calcium 600 + D(3)) 600 mg calcium- 200 unit Capsule Discontinued 1 TAB PO Daily April 03, 2019 5:52pm June 19, 2019 12:46pm Comment on above: Take 1 tablet by radha three times daily. celecoxib 200 mg oral capsule (20 sources) Nonsteroidal Anti-inflammatory Drug Start: 05-28-2023 take 1 capsule by mouth once daily in the morning celecoxib (CeleBREX) 200 mg capsule TAKE 1 CAPSULE BY MOUTH ONCE DAILY IN THE MORNING AND 1 CAPSULE BEFORE BEDTIME 180 capsule 0 05/28/2023 Active Start: 02-21-2022 take 1 capsule by mo ut twice daily celecoxib (CELEBREX) 200 mg capsule Take 200 mg by mouth twice daily. 0 02/21/2022 Active Start: 04-03-2019 End: 11-07-2021 take 1 capsule by mouth once daily as needed CeleBREX 200 MG Oral Capsule TAKE 1 CAPSULE DAILY NEEDED. Quantity: 0 Refills: 0 Ordered: 25-Apr-2019 DO Start : 25-Apr-2019 Active Comment on above: Take 200 mg by mouth twice daily. Take 200 mg by mouth once daily. sugar-free cholestyramine resin 4000 mg powder for oral suspension (20 sources) Bile Acid Sequestrant Start: 02-07-2022 End: 09-01-2023 take 4 g by mouth twice daily Cholestyramine- Aspartame Active 4 GM PO Twice daily February 07, 2022 5:06pm Start: 10-16-2021 End: 10-17-2022 take 4 g by mouth twice daily at mealtime cholestyramine-sucrose (QUESTRAN) 4 gram powder Take 4 g by mouth twice daily with meals. 240 g 3 10/16/2021 10/17/2022 Discontinued take 4 g by mouth th ree times daily at mealtime cholestyramine-sucrose (QUESTRAN) 4 gram powder Take 4 g by mouth three times daily with meals. 0 Active Comment on above: Take 4 g by mouth tw ice daily with meals. Take 4 g by mouth th ree times daily with meals. colestipol hydrochloride 1000 mg oral tablet (20 sources) Bile Acid Sequestrant Start: 2 End: 3 take 2 tablets by mouth at bedtime colestipoL (COLESTID) 1 g tablet Take 2 tablets (2 g total) by mouth in the morning and 2 tablets (2 g total) before bedtime. 0 01/13/2023 Active Start: 08-21-2021 End: 10-16-2021 take 2 tablets by mouth twice daily colestipol (COLESTID) 1 gram tablet Indications: Diarrhea, unspecified type Take 2 tablets by mouth twice daily. 120 tablet 3 08/21/2021 10/16/2021 Discontinued Comment on above: Take 2 tablets by [facility] twice daily. TAKE 2 TABLETS BY [facility] TWICE A DAY dextromethorphan hydrobromide 1.5 mg/ml / pyrilamine maleate 1.5 mg/ml oral solution (4 sources) Uncompetitive B-ommqwv-Y-aspartate Receptor Antagonist, Sigma-1 Agonist Start: End: 024 take 10 mL by mouth four times daily as needed for cough pyrilamine-dextrom ethorphan 7.5-7.5 mg/5 mL liquid Indications: Viral upper respiratory tract infection Take 10 mL by mouth 4 (four) times a day as needed (cough., congestion). 473 mL 1 09/01/2023 Active diclofenac sodium 0.01 mg/mg topical gel (20 sources) Nonsteroidal Anti-inflammatory Drug Start: End: apply 2 g topically four times daily diclofenac (VOLTAREN) 1 % topical gel Apply 2 g to affected area four times daily. 200 g 2 02/04/2023 05/05/2023 Active Comment on above: Apply 2 g to affecte d area four times daily. furosemide 20 mg oral tablet (20 sources) Loop Diuretic Start: take 1 tablet by mouth once daily furosemide (LASIX) 20 mg tablet Take 1 tablet by mouth once daily 90 tablet 1 07/13/2023 Active Start: 09-30-2019 take 1 tablet by [facility] once daily Furosemide 40 MG Oral Tablet TAKE 1 TABLET DAILY. Quantity: 0 Refills: 0 Ordered: 05-Oct-2019 DO Start : 05-Oct-2019 Active Start: 04-09-2019 End: 06-19-2019 take 20 mg by mouth once daily Furosemide Discontinued 20 MG PO Daily at 0800 30 April 09, 2019 11:09am June 19, 2019 12:46pm Start: 04-03-2019 End: 04-09-2019 take 40 mg by mouth once daily Furosemide Discontinued 40 MG PO Daily April 03, 2019 7:23pm April 09, 2019 12:17pm furosemide (LASI X) 40 mg tablet Take 20 mg by mouth once daily. 0 Active Comment on above: Take 20 mg by mouth once daily. Take 40 mg by mouth once daily. hydroxychloroquine sulfate 200 mg oral tablet (20 sources) Antimalarial, Antirheumatic Agent Start: 2015 End: 2022 take 1 tablet by mouth twice daily hydroxychloroquine (PLAQUENIL) 200 mg tablet take 1 tablet by mouth twice a day 0 07/25/2016 Active Comment on above: take 1 tablet by radha th twice a day take with food or milk NEEDS LABS take 1 tablet by radha th twice a day with food hyoscyamine sulfate 0.125 mg sublingual tablet (3 sources) hyoscyamine (LEV SIN) 0.125 mg SL tablet iv contrast (will be provided with radiology test) (20 sources) Start: 2021 End: 2021 iv contrast (will be provided with radiology test) MRI Cardiac w/Qflow Inject, intravenously, once for 1 dose. No IV access, insert saline lock prior to the beginning of sedation, infusion, injection of imaging exam. Discontinue saline lock post exam. If Pt has a central line or IVAD, may access for administration according to line specific nursing protocol. Once exam is complete flush line and de-access according to line specific nursing protocol in the MR contrast administration guidelines link 1 Each 0 03/27/2022 03/28/2022 Active Start: 06-20-2021 End: 07-31-2022 iv contrast (will be provide d with radiology test) MRI PANC/JEANIE Inject, intravenously, once for 1 dose. No IV access, insert saline lock prior to the beginning of sedation, infusion, injection of imaging exam. Discontinue saline lock post exam. If Pt. has a central line or IVAD, may access for administration according to line specific nursing protocol. Once exam is complete flush line and de-access according to line specific nursing protocol in the MR contrast administration guidelines link. 1 Each 0 06/20/2021 07/31/2022 Discontinued (Course of therapy completed) Start: 06-20-2021 iv contrast (w ill be provided with radiology test) MRI PANC/JEANIE Inject, intravenously, once for 1 dose. No IV access, insert saline lock prior to the beginning of sedation, infusion, injection of imaging exam. Discontinue saline lock post exam. If Pt. has a central line or IVAD, may access for administration according to line specific nursing protocol. Once exam is complete flush line and de-access according to line specific nursing protocol in the MR contrast administration guidelines link. 1 Each 0 06/20/2021 Suspended Start: 06-20-2021 iv contrast (w ill be provided with radiology test) MRI PANC/JEANIE Inject, intravenously, once for 1 dose. No IV access, insert saline lock prior to the beginning of sedation, infusion, injection of imaging exam. Discontinue saline lock post exam. If Pt. has a central line or IVAD, may access for administration according to line specific nursing protocol. Once exam is complete flush line and de-access according to line specific nursing protocol in the MR contrast administration guidelines link. 1 Each 0 06/20/2021 Active Comment on above: MRI PANC/JEANIE Inject, intravenously, once for 1 dose. No IV access, insert saline lock prior to the beginning of sedation, infusion, injection of imaging exam. Discontinue saline lock post exam. If Pt. has a central line or IVAD, may access for administration according to line specific nursing protocol. Once exam is complete flush line and de-access according to line specific nursing protocol in the MR contrast administration guidelines link. MRI Cardiac w/Qflow Inject, intravenously, once for 1 dose. No IV access, insert saline lock prior to the beginning of sedation, infusion, injection of imaging exam. Discontinue saline lock post exam. If Pt has a central line or IVAD, may access for administration according to line specific nursing protocol. Once exam is complete flush line and de-access according to line specific nursing protocol in the MR contrast administration guidelines link levothyroxine sodium 0.05 mg oral tablet (20 sources) l-Thyroxine Start: 09-11-19 23 End: 08-20-19 24 take 1 tablet by mouth in the morning levothyroxine (SYNTHROID, LEVOTHROID) 50 MCG tablet Take 1 tablet (50 mcg total) by mouth in the morning. 30 tablet 1 08/20/2023 Active Start: 09-24-2020 take 1 tablet by radha th once daily levothyroxine (SYNTHROID) 75 mcg tablet Take 75 mcg by mouth once daily. 0 09/24/2020 Active Comment on above: Take 75 mcg by mouth once daily. 24 hr metoprolol succinate 50 mg extended release oral tablet (20 sources) beta-Adrenergic Girish Start: 08-20-2022 take 1 tablet by mouth every twenty-four hours in the morning, then take 2 tablets by mouth in the evening metoprolol succinate XL (TOPROL XL) 50 mg 24 hr tablet TAKE 1 TABLET BY MOUTH IN THE MORNING AND 2 TABLETS BY MOUTH IN THE EVENING 0 08/20/2022 Active Start: 01-28-2022 End: 02-09-2023 metoprolol succinate ER (TOP ROL XL) 50 mg 24 hr tablet 50mg in am and 100mg in pm. 270 tablet 3 01/28/2022 02/09/2023 Discontinued Start: 07-26-2021 End: 01-24-2022 metoprolol succinate ER (TOP ROL XL) 50 mg 24 hr tablet 50mg in am and 100mg in pm. 270 tablet 1 07/26/2021 01/24/2022 Discontinued Start: 09-18-2019 take 50 mg by mouth twice milka y Metoprolol Succinate Active 50 MG PO Twice daily September 18, 2019 4:31pm Start: 06-23-2019 End: 09-18-2019 take 150 mg by mouth once daily Metoprolol Succinate Discontinued 150 MG PO Daily 45 June 23, 2019 10:29am September 18, 2019 4:31pm Start: 05-08-2019 End: 06-19-2019 take 100 mg by mouth once daily in the evening Metoprolol Succinate Discontinued 100 MG PO Every evening May 08, 2019 11:48am June 19, 2019 12:46pm Start: 04-09-2019 End: 06-23-2019 take 50 mg by mouth once daily Metoprolol Succinate Di scontinued 50 MG PO Daily May 08, 2019 11:52am June 23, 2019 2:24pm Comment on above: 50mg in am and 100mg in pm. TAKE 1 TABLET BY RADHA TH IN THE MORNING AND 2 TABLETS BY MOUTH IN THE EVENING Salsnqbb-Yar-Fw-Lycop en-Lutein (Centrum Silver) 0.4-300-250 mg-mcg-mcg Tablet (3 sources) Start: 04-03-20 19 take 1 tablet by mouth once daily Fpbitoar-Anq-Hf-Lycop en-Lutein (Centrum Silver) 0.4-300-250 mg-mcg-mcg Tablet Active 1 TAB PO Daily April 03, 2019 5:52pm multivitamin capsule (3 sources) Start: 02-22-20 10 multivitamin capsule Take by mouth. 0 02/21/2010 Active nitrofurantoin, macrocrystals 25 mg / nitrofurantoin, monohydrate 75 mg oral capsule (3 sources) Nitrofuran Antibacterial Start: 02-06-20 End: 02-11-20 take 1 capsule by mouth twice daily nitrofurantoin monohydrate and macrocrystal (MACROBID) 100 mg capsule Take 1 capsule by mouth twice daily for 5 days. 10 capsule 0 02/05/2023 02/10/2023 Active Comment on above: Take 1 capsule by mo [facility] twice daily for 5 days. 2 ml ondansetron 2 mg/ml injection (15 sources) Serotonin-3 Receptor Antagonist Start: 03-13-20 End: 03-16-20 ondansetron orally disintegrating 4 mg tab(s) (ZOFRAN ODT) Start: 03-13-2022 End: 03-16-2022 ondansetron (PF) 4 mg inject ion (ZOFRAN) Start: 09-30-2019 End: 02-07-2022 take 4 mg by mouth every six hours Ondansetron Discontinued 4 MG PO Every 6 hours September 30, 2019 10:24am February 07, 2022 5:10pm Start: 04-08-2019 End: 06-19-2019 take 4 mg by mouth every eight hours Ondansetron Discontinued 4 MG PO Q8H 15 5 April 08, 2019 2:59pm June 19, 2019 12:48pm pantoprazole 40 mg delayed release oral tablet (20 sources) Proton Pump Inhibitor Start: 05-15-2022 take 1 tablet by mouth in the morning, then take 1 tablet by mouth at bedtime pantoprazole (PROTONIX) 40 mg EC tablet Take 1 tablet (40 mg total) by mouth in the morning and 1 tablet (40 mg total) before bedtime. 0 05/15/2022 Active Start: 02-07-2022 take 40 mg by mouth once daily Pantoprazole Active 40 MG PO Daily February 07, 2022 4:59pm Start: 09-12-2021 End: 06-16-2023 take 1 tablet by mouth every twelve hours pantop[address] (PROTONIX) 40 mg tablet take 1 tablet by mouth twice a day 60 tablet 3 06/16/2023 Active Comment on above: Take 1 tablet by radha th twice daily. take 1 tablet by radha th twice a day perflutren lipid microspheres 1.3 mL in NaCl (PF) 0.9% 10 mL injection (DEFINITY) (20 sources) Start: 03-27-2022 End: 06-26-2023 perflutren lipid microspheres 1.3 mL in NaCl (PF) 0.9% 10 mL injection (DEFINITY) Start: 05-16-2021 End: 08-15-2022 perflutren lipid microsphere s 1.3 mL in NaCl (PF) 0.9% 10 mL injection (DEFINITY) predniSONE 20 mg oral tablet (20 sources) Start: 09-30-2019 End: 02-07-2022 Prednisone Discontinued 0 .R OUTE .COMPLEX September 30, 2019 11:54am February 07, 2022 5:01pm second part of prednisone taper: take 2 pills a day for 4 days, then 1 pill a day for 4 days, then 1 pill every other day x 2 doses, then stop. Start: 09-30-2019 End: 02-07-2022 Prednisone Discontinued 0 .R OUTE .COMPLEX September 30, 2019 10:28am February 07, 2022 5:01pm 4 pills every morning for 2 days, then 3 pills every morning for 4 days, then 2 pills every morning for 4 days, then go back to usual dose of prednisone every day after that. Start: 06-19-2019 End: 09-30-2019 take 10 mg by mouth once daily Prednisone Discontinued 10 MG PO Daily June 19, 2019 12:45pm September 30, 2019 12:10pm Start: 05-12-2019 End: 06-19-2019 take 40 mg by mouth once daily Prednisone Discontinued 40 MG PO Daily 60 May 12, 2019 2:55pm June 19, 2019 12:45pm Start: 07-15-2017 End: 09-01-2023 take 1 tablet by mouth in the morning predniSONE (DELTASONE) 20 mg tablet Indications: Viral upper respiratory tract infection Take 1 tablet (20 mg total) by mouth in the morning. 7 tablet 0 09/01/2023 Active End: 03-13-2022 PREDNISONE ORAL Pt states on ly taking medication before infusions. 0 03/13/2022 Discontinued PREDNISONE ORAL Pt states only taking medication before infusions. 0 Active Comment on above: Pt states only takin g medication before infusions. prochlorperazine 5 mg/ml injectable solution (3 sources) Phenothiazine Start: End: prochlorperazine 5 mg injection (COMPAZINE) simvastatin 40 mg oral tablet (3 sources) HMG-CoA Reductase Inhibitor simvastatin (ZOCOR) 40 mg tablet Take 1 tablet (40 mg total) by mouth. 0 Active 125 ml sodium chloride 9 mg/ml prefilled syringe (20 sources) Start: End: sodium chloride 0.9 % (flush) 10 mL (BD POSIFLUSH) spironolactone 50 mg oral tablet (20 sources) Aldosterone Antagonist Start: take 1 tablet by mouth once daily spironolactone (ALDACTONE) 50 mg tablet Take 1 tablet by mouth once daily 90 tablet 0 06/24/2023 Active Start: 09-18-2019 End: 09-30-2019 take 25 mg by mouth once daily Spironolactone Discontinued 25 MG PO Daily September 18, 2019 4:21pm September 30, 2019 12:09pm Comment on above: Take 50 mg by mouth once daily. Sucralfate (Carafate) 100 mg/mL Suspension (3 sources) Start: 02-08-20 take 1 mL by mouth four times daily Sucralfate (Carafate) 100 mg/mL Suspension Active 10 ML PO Four times daily February 07, 2022 4:59pm 24 hr venlafaxine 150 mg extended release oral capsule (20 sources) Serotonin and Norepinephrine Reuptake Inhibitor Start: 06-11-20 23 End: 09-14-19 24 take 1 capsule by mouth every twenty-four hours in the morning venlafaxine XR (EFFEXOR-XR) 150 mg 24 hr capsule Take 1 capsule by mouth in the morning 90 capsule 0 09/14/2023 Active Start: 04-03-2019 take 1 capsule by mo uth once daily venlafaxine ER (EFFEXOR XR) 150 mg 24 hr capsule Take 1 capsule by mouth once daily. 90 capsule 3 10/23/2020 Active Comment on above: Take 1 capsule by mo uth once daily. Vitamin B Complex (B Complex 1) Tablet (3 sources) Start: 04-03-2019 take 1 tablet by mouth once daily Vitamin B Complex (B Complex 1) Tablet Active 100 MG PO Daily April 03, 2019 5:52pm vitamin B complex (B COMPLEX) tablet extended release (3 sources) Start: 05-02-2010 vitamin B complex (B COMPLEX) tablet extended release Take by mouth. 0 05/02/2010 Active warfarin sodium 5 mg oral tablet (6 sources) Vitamin K Antagonist Start: 11-22-2010 End: 05-08-2019 warfarin (COUMADIN) 5 mg tablet Take by mouth. 0 11/22/2010 Active Completed/Discontinued Medications Medication Drug Class(es) Dates Sig (Normalized) Sig (Original) acetaminophen 500 mg oral tablet (20 sources) Start: 08-27-2022 take 1 tablet by mouth every four hours as needed acetaminophen (TYLENOL) 500 mg tablet Take 1 tablet by mouth every 4 hours as needed for pain. 0 08/27/2022 Active Start: 03-13-2022 End: 03-16-2022 acetaminophen 650 mg tab(s) (TYLENOL) Start: 04-03-2019 End: 06-19-2019 take 500 mg by mouth every six hours Acetaminophen Discontinued 500 MG PO Q6H April 03, 2019 5:52pm June 19, 2019 12:46pm Start: 12-25-2016 acetaminophen (TYLENOL) 325 mg tablet Take 2 tablets by mouth. Pre med 0 12/25/2016 Active Comment on above: Take 1 tablet by radha th every 4 hours as needed for pain. ALPRAZolam 0.5 mg oral tablet (3 sources) Benzodiazepine Start: 04-09-20 End: 05-08-20 19 take 1 tablet by mouth once daily at bedtime Alprazolam (Xanax) 0.5 mg tablet Discontinued 0.5 MG PO Daily at bedtime 06 05April 09, 2019 12:59pm May 08, 2019 11:52am amiodarone hydrochloride 200 mg oral tablet (15 sources) Antiarrhythmic Start: 06-23-20 End: 02-08-20 take 200 mg by mouth twice daily Amiodarone Discontinued 200 MG PO Twice daily September 18, 2019 6:26pm February 07, 2022 5:11pm Start: 06-02-2019 End: 06-23-2019 take 200 mg by mouth once daily Amiodarone Discontinue d 200 MG PO Daily June 02, 2019 3:08pm June 23, 2019 2:24pm Start: 05-12-2019 End: 06-02-2019 take 200 mg by mouth twice daily at mealtime Amiodarone Discontinued 200 MG PO Twice daily with meals 60 May 12, 2019 2:30pm June 02, 2019 3:08pm Start: 04-03-2019 End: 05-12-2019 take 200 mg by mouth once daily Amiodarone Discontinue d 200 MG PO Daily April 03, 2019 5:52pm May 12, 2019 2:58pm amLODIPine 5 mg oral tablet (8 sources) Dihydropyridine Calcium Channel Girish Start: 06-19-2019 End: 09-18-2019 take 5 mg by mouth once daily Amlodipine Discontinued 5 MG PO Daily June 19, 2019 12:40pm September 18, 2019 4:31pm Start: 04-03-2019 End: 04-09-2019 take 5 mg by mouth once daily Amlodipine Discontinued 5 MG PO Daily April 03, 2019 5:52pm April 09, 2019 12:17pm amoxicillin 500 mg oral capsule (14 sources) Penicillin-class Antibacterial Start: 06-11-2023 amoxicillin (AMOXIL) 500 mg capsule Take 4 tablets one hour prior to dental procedure 4 capsule 3 06/11/2023 Active Start: 02-11-2021 End: 01-01-2022 Amoxicillin 500 mg tablet Ta ke 4 tablets by mouth 1 hour prior to procedure and 2 tablets by mouth 6 hours after procedure 6 tablet 4 02/11/2021 01/01/2022 Discontinued (Other) Comment on above: Take 4 tablets by [facility] 1 hour prior to procedure and 2 tablets by mouth 6 hours after procedure Take 4 tablets one h our prior to dental procedure amylase [id number] unt / lipase [id number] unt / protease [id number] unt delayed release oral capsule (3 sources) Start: 09-30-19 End: 02-08-20 take [id number] capsules by mouth once Rqmsye-Quxhpfum-Ovewjm e (Creon) 24,000-76,000 -120,000 unit Capsule,Delayed Release(Dr/Ec) Discontinued 3 CAP PO 3x/Day with meals 300 September 30, 2019 11:53am February 07, 2022 5:11pm Further refills per GI Dr. Carrasco atorvastatin 40 mg oral tablet (20 sources) HMG-CoA Reductase Inhibitor Start: 04-03-20 19 End: 09-13-19 22 take 1 tablet by mouth once daily atorvastatin (LIPITOR) 40 mg tablet Indications: Mixed hyperlipidemia Take 1 tablet by mouth once daily. 90 tablet 3 09/13/2021 Active Comment on above: Take 1 tablet by radha th once daily. busPIRone hydrochloride 10 mg oral tablet (20 sources) Start: 05-15-20 20 take 1 tablet by mouth once daily at bedtime busPIRone (BUSPAR) 10 mg tablet Take 10 mg by mouth daily at bedtime. 0 05/15/2020 Active Comment on above: Take 10 mg by mouth daily at bedtime. calcium carbonate 500 mg chewable tablet (20 sources) Start: 08-27-19 23 take 500 mg by mouth every hour as needed calcium carbonate (TUMS) 500 mg chew Take 1 tablet by mouth every hour as needed (mouth or hand numbness or tingling). 0 08/27/2022 Active Comment on above: Take 1 tablet by radha th every hour as needed (mouth or hand numbness or tingling). Calcium Carbonate / vitamin D3 (20 sources) End: 05-12-20 22 CALCIUM CARBONATE/VITAMIN D3 (CALCIUM 600 + D ORAL) Take by mouth once daily. 0 05/12/2022 Discontinued CALCIUM CARBONAT E/VITAMIN D3 (CALCIUM 600 + D ORAL) Take by mouth once daily. 0 Active Comment on above: Take by mouth once d aily. carvedilol 12.5 mg oral tablet (3 sources) alpha-Adrenergic Girish, beta-Adrenergic Girish Start: 9 End: 9 take 12.5 mg by mouth twice daily Carvedilol Discontinued 12.5 MG PO Twice daily April 03, 2019 5:52pm April 09, 2019 12:17pm Centrum Silver Oral Tablet (8 sources) Start: 9 take 1 tablet by mouth once daily Centrum Silver Oral Tablet TAKE 1 TABLET DAILY. Quantity: 0 Refills: 0 Ordered: 25-Apr-2019 DO Start : 25-Apr-2019 Active cephalexin 500 mg oral capsule (20 sources) Cephalosporin Antibacterial Start: 3 take 1 capsule by mouth four times daily cephALEXin (KEFLEX) 500 mg capsule Take 1 capsule by mouth four times daily. 28 capsule 0 02/12/2023 Active Start: 02-09-2022 take 500 mg by mouth every six hours Cephalexin Active 500 MG PO Q6H 12 February 09, 2022 11:49am Start: 09-30-2019 End: 02-07-2022 take 1 capsule by mouth three times daily Cephalexin (Keflex) 500 mg capsule Discontinued 500 MG PO Three times daily 9 September 30, 2019 10:30am February 07, 2022 5:08pm Comment on above: Take 1 capsule by [facility] four times daily. cholecalciferol 0.05 mg oral capsule (20 sources) Vitamin D Start: 04-25-2019 take 1 capsule by mouth once daily Vitamin D3 50 MCG (2000 UT) Oral Capsule TAKE 1 CAPSULE Daily Quantity: 0 Refills: 0 Ordered: 25-Apr-2019 DO Start : 25-Apr-2019 Active Start: 04-03-2019 take 2000 [IU] by [facility] once daily Cholecalciferol (Vitamin D3) Active 2000 UNIT PO Daily April 03, 2019 5:52pm End: 09-01-2023 cholecalciferol, vitamin D3, 2,000 units capsule Take by mouth. 0 09/01/2023 Discontinued (Therapy completed) Comment on above: Take by mouth once d aily. cilgavimab 300 mg intramuscular injection (EVUSHELD) (1 source) Start: End: cilgavimab 300 mg intramuscular injection (EVUSHELD) dicloxacillin 500 mg oral capsule (2 sources) Penicillin-class Antibacterial Start: 023 End: take 1 capsule by mouth four times daily dicloxacillin (DYNAPEN) 500 mg capsule Take 1 capsule by mouth four times daily. 28 capsule 0 01/08/2023 01/22/2023 Discontinued (Course of therapy completed) Comment on above: Take 1 capsule by [facility] four times daily. 24 hr dilTIAZem hydrochloride 180 mg extended release oral capsule (3 sources) Calcium Channel Girish Start: 019 End: take 180 mg by mouth once daily Diltiazem Hcl Discontinued 180 MG PO Daily May 12, 2019 2:30pm June 19, 2019 12:46pm diphenhydrAMINE hydrochloride 25 mg oral capsule (6 sources) Histamine-1 Receptor Antagonist Start: End: diphenhydrAMINE 50 mg (BENADRYL) Start: 03-13-2022 End: 03-16-2022 diphenhydrAMINE 50 mg inject ion (BENADRYL) 1 ml EPINEPHrine 1 mg/ml injection (3 sources) alpha-Adrenergic Agonist, beta-Adrenergic Agonist, Catecholamine Start: 03-13-2022 End: 03-16-2022 EPINEPHrine 1 mg/mL (1 mL) 0.3 mg injection ezetimibe 10 mg oral tablet (3 sources) Dietary Cholesterol Absorption Inhibitor Start: 04-03-2019 End: 09-30-2019 take 10 mg by mouth once daily Ezetimibe Discontinued 10 MG PO Daily April 03, 2019 5:52pm September 30, 2019 12:09pm ferrous sulfate 325 mg oral tablet (20 sources) Start: 02-07-2022 take 325 mg by mouth once daily Ferrous Sulfate Active 325 MG PO Daily February 07, 2022 5:06pm Start: 10-23-2020 End: 11-24-2022 take 1 tablet by mouth once daily ferrous sulfate (IRON) 325 mg (65 mg iron) tablet Take 1 tablet by mouth once daily. 90 tablet 3 11/25/2022 Active Comment on above: Take 1 tablet by radha th once daily. hydroCHLOROthiazide 25 mg / metoprolol tartrate 100 mg oral tablet (2 sources) Thiazide Diuretic, beta-Adrenergic Girish End: metoprolol ta-hydroCHLOROthiaz (LOPRESSOR HCT) 100-25 mg per tablet hydrocortisone 100 mg injection (3 sources) Corticosteroid Start: End: hydrocortisone sodium succinate (PF) 100 mg injection (Solu-CORTEF) lisinopril 20 mg oral tablet (6 sources) Angiotensin Converting Enzyme Inhibitor Start: End: take 20 mg by mouth once daily Lisinopril Discontinued 20 MG PO Daily September 18, 2019 4:21pm September 30, 2019 12:09pm Start: 04-03-2019 End: 04-09-2019 take 20 mg by mouth once daily Lisinopril Discontinued 20 MG PO Daily April 03, 2019 5:52pm April 09, 2019 12:17pm loperamide hydrochloride 2 mg oral capsule (3 sources) Opioid Agonist Start: 05-12-2019 End: 06-19-2019 take 2 mg by mouth every four hours Loperamide Discontinued 2 MG PO Q4H 30 May 12, 2019 2:54pm June 19, 2019 12:46pm magnesium oxide 400 mg oral tablet (3 sources) Start: 04-09-2019 End: 09-18-2019 take 400 mg by mouth twice daily Magnesium Oxide Discontinued 400 MG PO Twice daily 60 April 09, 2019 11:09am September 18, 2019 4:31pm mesalamine 1000 mg rectal suppository (20 sources) Aminosalicylate Start: 04-08-2023 mesalamine (CA [employer]) 1,000 mg suppository 1 Suppository by RECTAL route daily at bedtime. 30 Suppository 3 04/08/2023 Active Start: 09-22-2021 End: 03-16-2023 take 4 tablets by mouth in the morning mesalamine (LIALDA) 1.2 gram EC tablet Take 4 tablets (4.8 g total) by mouth in the morning. 0 06/26/2022 Active Start: 03-04-2021 End: 09-20-2021 take 4 tablets by mouth once daily Mesalamine (LIALDA) 1.2 gram EC tablet Take 4 tablets by mouth once daily. 360 tablet 1 03/04/2021 09/20/2021 Discontinued Start: 12-06-2019 Mesalamine 1.2 GM Oral Tablet Delayed Release takes 4x day Quantity: 0 Refills: 0 Ordered: 06-Dec-2019 DO Start : 06-Dec-2019 Active Start: 06-19-2019 take 1 tablet by radha four times daily Mesalamine (Lialda) 1.2 gram tablet,delayed release (DR/EC) Active 1.2 GM PO Four times daily June 19, 2019 12:45pm Comment on above: Take 4 tablets by mo uth once daily. take 4 tablets by mo uth once daily 1 Suppository by REC NNAMDI route daily at bedtime. Mesalamine (Lialda) 1.2 gram Tablet,Delayed Release (Dr/Ec) (3 sources) Start: 2018 End: 2018 take 4 tablets by mouth once daily Mesalamine (Lialda) 1.2 gram Tablet,Delayed Release (Dr/Ec) Discontinued 4.8 GM PO Daily May 12, 2019 2:54pm June 19, 2019 12:45pm methylPREDNISolone (11 sources) Corticosteroid Start: 2020 End: 2021 methylPREDNISolone (MEDROL DOSE-PACK) 4 mg Dose-Pack As Instructed per package 1 Package 0 03/21/2021 01/01/2022 Discontinued (Other) Start: 03-21-2021 methylPREDNISo lone (MEDROL DOSE-PACK) 4 mg Dose-Pack As Instructed per package 1 Package 0 03/21/2021 Active Start: 09-18-2019 End: 09-30-2019 take 40 mg intravenously every three months Methylprednisolone Sodium Succ Discontinued 40 MG IV As Directed September 18, 2019 4:21pm September 30, 2019 12:10pm EVERY THREE MONTHS Start: 04-03-2019 End: 05-12-2019 Methylprednisolone Sodium Mejia cc Discontinued 60 MG IV As Directed April 03, 2019 5:52pm May 12, 2019 2:58pm Comment on above: As Instructed per joseph mace multivitamins w-minerals/lut(CENTRUM SILVER TAB) (20 sources) Start: 02-21-2010 multivitamins w-minerals/lut(CENTRUM SILVER TAB) Take one(1) tablet daily. 0 02/21/2010 Suspended Start: 02-21-2010 multivitamins w-minerals/lut(CENTRUM SILVER TAB) Take one(1) tablet daily. 0 02/21/2010 Active Comment on above: Take one(1) tablet d aily. MV with Niq-Iuptiqdb-Rkfhwt (CENTRUM SILVER) 0.4 mg-300 mcg- 250 mcg tab (20 sources) take 1 tablet by mouth once daily MV with Rsb-Kkqxahox-Scfkaz (CENTRUM SILVER) 0.4 mg-300 mcg- 250 mcg tab Take 1 tablet by mouth once daily. 0 Active Comment on above: Take 1 tablet by radha once daily. mycophenolate mofetil 500 mg oral tablet (20 sources) Start: 9 End: 3 take 1 tablet by mouth once daily mycophenolate Mofetil (CELLCEPT) 500 mg tablet Indications: High risk medication use , Systemic lupus erythematosus, unspecified SLE type, unspecified organ involvement status (HCC) take 1 tablet by mouth daily 30 tablet 11 03/20/2022 02/04/2023 Discontinued Start: 04-03-2019 take 1000 mg by mout h at bedtime Mycophenolate Mofetil Active 1000 MG PO Bedtime April 03, 2019 5:52pm Start: 12-25-2016 End: 09-01-2023 mycophenolate (CELLCEPT) 500 mg tablet Take 2 tablets (1,000 mg total) by mouth. 0 12/25/2016 09/01/2023 Discontinued (Discontinued by another clinician) Comment on above: take 2 tablets by mo uth daily take 1 tablet by radha th daily omeprazole 40 mg delayed release oral capsule (4 sources) Proton Pump Inhibitor Start: 2 End: 2 take 1 capsule by mouth twice daily omeprazole (PRILOSEC) 40 mg capsule Indications: Epigastric pain Take 1 capsule by mouth twice daily. 60 capsule 3 09/04/2021 09/12/2021 Discontinued Start: 04-08-2019 End: 02-07-2022 take 40 mg by mouth once daily Omeprazole Discontinued 40 MG PO Daily April 08, 2019 2:59pm February 07, 2022 5:10pm Comment on above: Take 1 capsule by mo uth twice daily. raNITIdine 150 mg oral tablet (2 sources) Histamine-2 Receptor Antagonist Start: 06-11-2017 End: 09-01-2023 ranitidine (ZANTAC) 150 mg tablet Take 1 tablet (150 mg total) by mouth. 0 06/11/2017 09/01/2023 Discontinued (Therapy completed) sucralfate 100 mg/ml oral suspension (20 sources) Aluminum Complex Start: 10-16-2021 take 10 mL by mouth four times daily sucralfate (CARAFATE) 100 mg/mL suspension Take 10 mL by mouth four times daily. 420 mL 1 10/16/2021 Active Start: 09-12-2021 End: 10-14-2021 take 10 mL by mouth four times daily sucralfate (CARAFATE) 100 mg/mL suspension Take 10 mL by mouth four times daily. 420 mL 1 09/12/2021 10/14/2021 Discontinued Comment on above: Take 10 mL by mouth four times daily. tixagevimab 300 mg intramuscular injection (BILLY) (1 source) Start: 03-13-20 End: 03-13-20 tixagevimab 300 mg intramuscular injection (EVUSHELD) torsemide 20 mg oral tablet (3 sources) Loop Diuretic Start: 09-18-19 End: 09-30-19 take 40 mg by mouth once daily Torsemide Discontinued 40 MG PO Daily September 18, 2019 4:21pm September 30, 2019 12:09pm Turmeric extract (3 sources) Start: 04-03-20 End: 06-19-20 take 400 mg by mouth once daily Turmeric Discontinued 400 MG PO Daily April 03, 2019 5:52pm June 19, 2019 12:48pm vancomycin 125 mg oral capsule (11 sources) Glycopeptide Antibacterial Start: 10-30-19 End: 09-01-19 vancomycin (VANCOCIN) 125 mg capsule Start: 10-01-2022 End: 10-15-2022 take 1 capsule by mouth four times daily vancomycin (VANCOCIN HCL) 125 mg capsule Indications: C. difficile colitis Take 1 capsule by mouth four times daily for 14 days. 56 capsule 0 10/01/2022 10/15/2022 Active Start: 02-24-2022 End: 03-06-2022 take 1 capsule by mouth four times daily vancomycin (VANCOCIN) 125 mg capsule Indications: C. difficile diarrhea Take 1 capsule by mouth four times daily for 10 days. 40 capsule 0 02/24/2022 03/06/2022 Active Comment on above: Take 1 capsule by mo [facility] four times daily for 10 days. Take 1 capsule by mo [facility] four times daily for 14 days. Take 1 capsule by mo ut four times daily for 14 days, THEN 1 capsule twice daily for 7 days, THEN 1 capsule once daily for 7 days, THEN 1 capsule every other day in the morning for 14 days. Vitamin B Complex (20 sources) Start: 05-02-2010 vitamin b complex(B COMPLEX TAB) one daily 0 05/02/2010 Suspended Start: 05-02-2010 vitamin b comp patricia(B COMPLEX TAB) one daily 0 05/02/2010 Active Comment on above: one daily Vitamin B Complex Oral Tablet (8 sources) Start: 04-25-2019 take 1 tablet by mouth once daily Vitamin B Complex Oral Tablet TAKE 1 TABLET DAILY. Quantity: 0 Refills: 0 Ordered: 25-Apr-2019 DO Start : 25-Apr-2019 Active Problems Active Problems Problem Classification Problem Date Documented Date Episodic/Chronic Abdominal pain (6 sources) Epigastric pain; Translations: [Epigastric pain] Onset: 2 09-18-2019 Episodic Acquired foot deformities (20 sources) Acquired hallux valgus; Translations: [Hallux valgus (acquired), unspecified foot] Onset: 4 01-02-2014 Chronic Administrative/social admission (1 source) Repeated prescription; Translations: [Encounter for issue of repeat prescription] Episodic Aortic; peripheral; and visceral artery aneurysms (20 sources) Aneurysm of ascending aorta; Translations: [Thoracic aortic aneurysm, without rupture] Onset: 2 10-29-2021 Chronic Asthma (3 sources) Reactive airway disease; Translations: [Unspecified asthma, uncomplicated] Onset: 6 07-22-2022 Chronic Biliary tract disease (4 sources) Biliary calculus; Translations: [Calculus of gallbladder without cholecystitis without obstruction] 09-30-2019 Episodic Cardiac dysrhythmias (20 sources) Paroxysmal atrial fibrillation; Translations: [Atrial fibrillation] Onset: 0 12-19-2020 Chronic Chronic kidney disease (4 sources) Chronic kidney disease stage 3; Translations: [Stage 3 chronic kidney disease] 04-04-2019 Chronic Chronic ulcer of skin (4 sources) Ulcer of toe; Translations: [Non-pressure chronic ulcer of other part of right foot limited to breakdown of skin] Chronic Coagulation and hemorrhagic disorders (18 sources) Thrombocytopenic disorder; Translations: [Thrombocytopenia, unspecified] Onset: 3 04-10-2023 Chronic Complications of surgical procedures or medical care (1 source) History of parathyroidectomy; Translations: [Postprocedural hypoparathyroidism] Chronic Congestive heart failure; nonhypertensive (20 sources) Chronic congestive heart failure; Translations: [Heart failure, unspecified] Onset: 9 Resolved: 2 12-19-2020 Chronic Disorders of lipid metabolism (20 sources) Mixed hyperlipidemia; Translations: [Mixed hyperlipidemia] Onset: 1 03-05-2021 Chronic Diverticulosis and diverticulitis (4 sources) Diverticulosis of large intestine without perforation or abscess without bleeding; Translations: [Diverticulitis of sigmoid colon] Onset: 2 07-22-2022 Chronic Esophageal disorders (1 source) Gastroesophageal reflux disease without esophagitis; Translations: [Gastro-esophageal reflux disease without esophagitis] 04-15-2023 Chronic Essential hypertension (20 sources) Essential hypertension; Translations: [Essential (primary) hypertension] Onset: 0 12-19-2020 Chronic Fever of unknown origin (1 source) Fever, unspecified; Translations: [FEVER UNSPECIFIED] Onset: 3 Episodic Fluid and electrolyte disorders (3 sources) Hypokalemia; Translations: [Hypokalemia] 09-18-2019 Episodic Gastroduodenal ulcer (except hemorrhage) (3 sources) Gastric ulcer; Translations: [Gastric ulcer, unspecified as acute or chronic, without hemorrhage or perforation] Onset: 6 07-22-2022 Chronic Headache; including migraine (6 sources) Headache; Translations: [Headache] 02-07-2022 Episodic Immunizations and screening for infectious disease (1 source) Encounter for immunization; Translations: [Other specified vaccinations against streptococcus pneumoniae [pneumococcus]] Episodic Intestinal infection (3 sources) Clostridium difficile diarrhea; Translations: [Enterocolitis due to Clostridium difficile, not specified as recurrent] Onset: 3 Episodic Mood disorders (3 sources) Chronic depression; Translations: [Chronic depression] Onset: 2 07-22-2022 Chronic Nephritis; nephrosis; renal sclerosis (20 sources) Membranous glomerulonephritis; 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] Onset: 0 03-15-2010 Chronic Nonspecific chest pain (9 sources) Chest wall pain; Translations: [Other chest pain] 06-21-2019 Episodic Nutritional deficiencies (20 sources) Vitamin D deficiency; Translations: [Vitamin D deficiency, unspecified] Onset: 0 05-03-2010 Chronic Osteoarthritis (20 sources) Degenerative joint disease of ankle AND/OR foot; Translations: [Primary osteoarthritis, unspecified ankle and foot] Onset: 4 07-31-2016 Chronic Other aftercare (10 sources) Taking high risk medication; Translations: [Other custodial (current) drug therapy] Episodic Other aftercare (17 sources) Drug therapy finding; Translations: [Other roasterman (current) drug therapy] Episodic Other aftercare (1 source) Long-term current use of 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; Translations: [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] Episodic Other aftercare (1 source) Other roasterman (current) drug therapy; Translations: [OTH CARE HOME CURRENT DRUG THERAPY] Onset: 3 Episodic Other bone disease and musculoskeletal deformities (3 sources) Osteopenia; Translations: [Other specified disorders of bone density and structure, unspecified site] Episodic Other circulatory disease (3 sources) Low blood pressure; Translations: [Hypotension, unspecified] 05-08-2019 Episodic Other connective tissue disease (20 sources) History of repair of hip joint; Translations: [Presence of right artificial hip joint] Onset: 1 12-19-2020 Chronic Other connective tissue disease (20 sources) History of total hip arthroplasty; Translations: [Presence of unspecified artificial hip joint] Onset: 1 12-20-2020 Chronic Other connective tissue disease (1 source) Pain in left foot; Translations: [Pain in left foot] Onset: 3 Episodic Other endocrine disorders (20 sources) Hyperparathyroidism; Translations: [Hyperparathyroidism, unspecified] Onset: 2 Chronic Other endocrine disorders (1 source) Primary hyperparathyroidism; Translations: [Primary hyperparathyroidism] Chronic Other endocrine disorders (8 sources) Disorder of parathyroid gland; Translations: [Unspecified disorder of parathyroid gland] Chronic Other endocrine disorders (1 source) Hyperparathyroidism, unspecified; Translations: [Hyperparathyroidism (HCC)] Onset: 3 Chronic Other endocrine disorders (1 source) Primary hyperparathyroidism; Translations: [Primary hyperparathyroidism (HCC)] Onset: 3 Chronic Other gastrointestinal disorders (13 sources) Diarrhea; Translations: [Diarrhea, unspecified] Episodic Other gastrointestinal disorders (5 sources) Diarrhea, unspecified; Translations: [DIARRHEA UNSPECIFIED] Onset: 2 Episodic Other hematologic conditions (3 sources) High troponin I level; Translations: [Other specified abnormalities of plasma proteins] 06-20-2019 Episodic Other hematologic conditions (3 sources) Raised cardiac enzyme or marker; Translations: [Other specified abnormalities of plasma proteins] 06-19-2019 Episodic Other lower respiratory disease (6 sources) Dyspnea; Translations: [Shortness of breath] 04-03-2019 Episodic Other lower respiratory disease (3 sources) Hypoxia; Translations: [Hypoxemia] 05-08-2019 Episodic Other lower respiratory disease (1 source) Solitary pulmonary nodule; Translations: [SOLITARY PULMONARY NODULE] Onset: 3 Episodic Other lower respiratory disease (1 source) Cough Onset: 4 Episodic Other nervous system disorders (20 sources) Plantar nerve lesion; Translations: [Lesion of plantar nerve, unspecified lower limb] Onset: 4 01-02-2014 Chronic Other nervous system disorders (3 sources) Metabolic encephalopathy; Translations: [Metabolic encephalopathy] 05-08-2019 Chronic Other nervous system disorders (2 sources) Disorder of brain; Translations: [Encephalopathy, unspecified] 02-09-2022 Chronic Other nervous system disorders (1 source) Encephalopathy, unspecified; Translations: [G93.40 - Encephalopathy, unspecified] Onset: 2 Chronic Other nervous system disorders (3 sources) Carpal tunnel syndrome; Translations: [Carpal tunnel syndrome, unspecified upper limb] Onset: 2 07-22-2022 Chronic Other nervous system disorders (2 sources) Impairment of balance; Translations: [Other abnormalities of gait and mobility] Episodic Other nutritional; endocrine; and metabolic disorders (20 sources) Body mass index 40+ - severely obese; Translations: [Morbid (severe) obesity due to excess calories] Onset: 0 12-19-2020 Chronic Other nutritional; endocrine; and metabolic disorders (20 sources) Obese class II; Translations: [Obesity, unspecified] Onset: 2 09-13-2021 Chronic Other nutritional; endocrine; and metabolic disorders (9 sources) Morbid obesity; Translations: [Morbid (severe) obesity due to excess calories] Onset: 3 09-30-2019 Chronic Other nutritional; endocrine; and metabolic disorders (3 sources) Hyperbilirubinemia; Translations: [Other disorders of bilirubin metabolism] 09-19-2019 Chronic Other nutritional; endocrine; and metabolic disorders (2 sources) Obesity; Translations: [Obesity, unspecified] 02-08-2022 Chronic Other nutritional; endocrine; and metabolic disorders (4 sources) Obesity, unspecified; Translations: [Obesity, unspecified] Onset: 2 Chronic Other nutritional; endocrine; and metabolic disorders (20 sources) Hypercalcemia; Translations: [Hypercalcemia] Onset: 2 Chronic Other nutritional; endocrine; and metabolic disorders (8 sources) Severe obesity; Translations: [Morbid obesity] Chronic Other nutritional; endocrine; and metabolic disorders (1 source) Body mass index (BMI) 40.0-44.9, adult; Translations: [BODY MASS INDEX BMI 40.0-44.9 ADULT] Onset: 3 Chronic Other nutritional; endocrine; and metabolic disorders (1 source) Hypomagnesemia; Translations: [Hypomagnesemia] 04-17-2023 Chronic Other skin disorders (4 sources) Callosity; Translations: [Corns and callosities] Episodic Other upper respiratory disease (3 sources) Allergic rhinitis; Translations: [Allergic rhinitis, unspecified] Onset: 2 07-22-2022 Chronic Other upper respiratory infections (2 sources) Viral upper respiratory tract infection; Translations: [Acute upper respiratory infection, unspecified] Onset: 4 09-01-2023 Episodic Ovarian cyst (1 source) Unspecified ovarian cyst, right side; Translations: [UNSPECIFIED OVARIAN CYST RIGHT SIDE] Onset: 3 Episodic Pancreatic disorders (not diabetes) (6 sources) Pancreatitis; Translations: [Acute pancreatitis without necrosis or infection, unspecified] 09-18-2019 Episodic Darby-; endo-; and myocarditis; cardiomyopathy (except that caused by tuberculosis or sexually transmitted disease) (1 source) Hypertrophic obstructive cardiomyopathy; Translations: [Obstructive hypertrophic cardiomyopathy] Chronic Regional enteritis and ulcerative colitis (8 sources) Ulcerative colitis; Translations: [Ulcerative colitis, unspecified, without complications] Onset: 9 06-19-2019 Chronic Residual codes; unclassified (20 sources) Sleep apnea; Translations: [Sleep apnea, unspecified] Onset: 2 12-19-2020 Chronic Residual codes; unclassified (9 sources) Obstructive sleep apnea syndrome; Translations: [Obstructive sleep apnea (adult) (pediatric)] Onset: 2 06-19-2019 Chronic Residual codes; unclassified (3 sources) Obstructive sleep apnea (adult) (pediatric); Translations: [Obstructive sleep apnea (adult)(pediatric)] Onset: 2 Chronic Residual codes; unclassified (8 sources) Obstructive sleep apnea of adult; Translations: [Obstructive sleep apnea (adult)(pediatric)] Chronic Residual codes; unclassified (3 sources) Altered mental status; Translations: [Altered mental status, unspecified] 02-07-2022 Episodic Residual codes; unclassified (3 sources) Altered mental status, unspecified; Translations: [Altered mental status] Episodic Residual codes; unclassified (3 sources) Postmenopausal state; Translations: [Asymptomatic menopausal state] Episodic Residual codes; unclassified (1 source) Other specified 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 states; Translations: [OTH SPECIFIED POSTPROCEDURAL STATES] Onset: 3 Episodic Skin and subcutaneous tissue infections (1 source) Cellulitis of toe; Translations: [Cellulitis of right toe] Episodic Systemic lupus erythematosus and connective tissue disorders (20 sources) Systemic lupus erythematosus; Translations: [Systemic lupus erythematosus, unspecified] Onset: 1 12-19-2020 Chronic Thyroid disorders (20 sources) Hypothyroidism; Translations: [Hypothyroidism, unspecified] Onset: 1 12-19-2020 Chronic Unclassified (3 sources) Encntr for general adult medical exam w/o abnormal findings; Translations: [Encntr for general adult medical exam w/o abnormal findings] Onset: 9 Unclassified (3 sources) halfway (current) use of anticoagulants; Translations: [halfway (current) use of anticoagulants] Onset: 9 Unclassified (1 source) Other custodial (current) drug therapy Onset: 9 Unclassified (1 source) R19.7 - Diarrhea, unspecified; Translations: [R19.7 - Diarrhea, unspecified] Onset: 2 Unclassified (1 source) R41.82 - Altered mental status, unspecified; Translations: [R41.82 - Altered mental status, unspecified] Onset: 2 Unclassified (1 source) Thoracic aortic aneurysm, without rupture, unspecified; Translations: [Thoracic aortic aneurysm, without rupture, unspecified] Onset: 3 Unclassified (1 source) CONTACT W/AND (SUSP) EXPOS COVID-19; Translations: [CONTACT W/AND (SUSP) EXPOS COVID-19] Onset: 3 Viral infection (1 source) COVID-19; Translations: [COVID-19] Onset: 4 Past or Other Problems Problem Classification Problem Date Documented Da te Episodic/Chronic Genitourinary symptoms and ill-defined conditions (20 sources) Proteinuria; Translations: [Proteinuria, unspecified] Onset: 02-22-2010 02-22-2010 Episodic Inflammation; infection of eye (except that caused by tuberculosis or sexually transmitteddisease) (20 sources) Conjunctivitis; Translations: [Unspecified conjunctivitis] Onset: 03-22-2019 03-22-2019 Episodic Malaise and fatigue (5 sources) Asthenia; Translations: [Weakness] Onset: 02-07-2022 02-08-2022 Episodic Mood disorders (3 sources) Mood disorders Onset: 04-15-2023 Resolved: 09-01-2023 04-15-2023 Neoplasms of unspecified nature or uncertain behavior (3 sources) Intraductal papillary mucinous neoplasm of pancreas; Translations: [Neoplasm of unspecified behavior of digestive system] Onset: 03-17-2020 07-22-2022 Episodic Noninfectious gastroenteritis (6 sources) Inflammatory bowel disease; Translations: [Noninfective gastroenteritis and colitis, unspecified] Onset: 04-02-2023 05-11-2019 Episodic Other aftercare (20 sources) Patient encounter status; Translations: [Other custodial (current) drug therapy] Onset: 11-10-2012 11-10-2012 Episodic Other aftercare (1 source) halfway (current) use of anticoagulants; Translations: [CLOUD PHYSICIST CURRNT USE ANTICOAGULANTS] Onset: 2022 Episodic Other connective tissue disease (20 sources) Fibromyalgia; Translations: [Fibromyalgia] Onset: 03-10-2012 12-19-2020 Episodic Other connective tissue disease (20 sources) Enthesopathy of ankle AND/OR tarsus; Translations: [Other enthesopathy of unspecified foot and ankle] Onset: 01-02-2014 01-02-2014 Episodic Other connective tissue disease (20 sources) Neuropathy; Translations: [Neuralgia, neuritis, and radiculitis, unspecified] Onset: 01-02-2014 01-02-2014 Episodic Other connective tissue disease (20 sources) Pain in left foot; Translations: [Pain in left foot] Onset: 08-07-2015 08-07-2015 Episodic Other connective tissue disease (20 sources) Synovitis/tenosynovit is - multiple joints; Translations: [Other synovitis and tenosynovitis, unspecified ankle and foot] Onset: 08-07-2015 07-31-2016 Episodic Other connective tissue disease (20 sources) Synovitis and tenosynovitis, unspecified; Translations: [Tenosynovitis of foot and ankle] Onset: 02-03-2017 02-03-2017 Episodic Other connective tissue disease (20 sources) Synovitis of joint of foot; Translations: [Synovitis and tenosynovitis, unspecified] Onset: 07-28-2018 10-22-2020 Episodic Other connective tissue disease (12 sources) Other synovitis and tenosynovitis, unspecified ankle and foot; Translations: [Tenosynovitis of foot and ankle] Onset: 08-07-2015 07-31-2016 Episodic Other diseases of kidney and ureters (3 sources) Abnormal renal function; Translations: [Disorder of kidney and ureter, unspecified] Onset: 07-22-2022 07-22-2022 Episodic Other eye disorders (20 sources) Disorder of cornea; Translations: [Unspecified disorder of cornea] Onset: 03-22-2019 03-22-2019 Episodic Other gastrointestinal disorders (1 source) Personal history of other diseases of the digestive system; Translations: [PERSONAL HX OTH DZ DIGESTIVE SYSTEM] Onset: 2022 Episodic Other upper respiratory disease (20 sources) Edema of larynx; Translations: [Edema of larynx] Onset: 06-10-2017 06-10-2017 Episodic Residual codes; unclassified (20 sources) Edema; Translations: [Edema, unspecified] Onset: 02-22-2010 02-22-2010 Episodic Unclassified (8 sources) Never smoked tobacco; Translations: [Never a smoker] Urinary tract infections (10 sources) Urinary tract infectious disease; Translations: [Urinary tract infection, site not specified] Onset: 02-07-2022 09-29-2019 Episodic Viral infection (6 sources) Herpes zoster; Translations: [Zoster without complications] Onset: 07-22-2022 07-22-2022 Episodic Results Test Name Value Interpretation Reference Range Facility BRIEF OP NOTon 12-18-2023 BRIEF OP NOT HNO ID: [id number] Author: Dalila Cervantes DPM Service: Podiatry Author Type: Physician Type: Brief Op Note Filed: 08/03/2023 1:00 PM Note Text: BRIEF OPERATIVE / PROCEDURE NOTE LOG ID: [id number] SURGERY/PROCEDURE DATE: 08/03/2023 INCISION/PROCEDURE START TIME: 12:52 PM INCISION CLOSE/PROCEDURE END TIME: 12:58 PM SURGEON(S)/PROCEDURALIST( S) AND MATLAB DEVELOPER(S): Surgeon(s) and Role: * Dalila Cervantes DPM - Primary * Angie See DPM - Resident - Assisting No Additional Staff SURGERY/PROCEDURE(S): Fluoroscopic guidance for needle placement bilateral feet Intra-articular local anesthetic cortisone injections second through fourth tarsometatarsal joint both feet ANESTHESIA: Local consisting of 4 cc of half percent Marcaine plain mixed with 1 cc of Kenalog 40 FINDINGS: Consistent with pre-op clinical and radiographic findings. ESTIMATED BLOOD LOSS: 0 ml SPECIMENS: None COMPLICATIONS: None CLOSURE TECHNIQUE: Non-primary PRE-OP/PRE-PROCEDURE DIAGNOSIS: Second through fourth tarsometatarsal joint osteoarthritis with painful synovitis both feet POST-OP/POST-PROCEDURE DIAGNOSIS: Same as Preop SIGNATURE: Dalila Cervantes DPM PATIENT NAME: Jesus Holguin Luciano DATE: August 03, 2023 TIME: 12:59 PM Normal [facility] HISTORY PHYSICALon HISTORY PHYSICAL HNO ID: [id number] Author: Dalila Cervantes DPM Service: Podiatry Author Type: Physician Type: HANDP Filed: 08/03/2023 12:30 PM Note Text: PODIATRIC HISTORY AND PHYSICAL UPDATE EVALUATION DATE: 08/02/2023 EVALUATION TIME: 7:32 PM The documented History and Physical (completed in the past 30 days) has been reviewed and the patient had a confirmatory musculoskeletal exam performed. The contents of the pre-operative assesment accurately reflect the patient's condition with the following additions or revisions since the HANDP was completed: No changes. This HANDP can be found in the record dated 08/03/23 SIGNATURE: Angie See DPM PATIENT NAME: Jesus Wolf DATE: August 02, 2023 [facility] HISTORY PHYSICAL HNO ID: [id number] Author: Fawn Billy APRN.JOHNATHAN Service: ? Author Type: Nurse Practitioner Type: HANDP Filed: 08/03/2023 12:02 PM Note Text: LOCAL PROCEDURE HISTORY AND PHYSICAL EXAM SERVICE DATE: 08/03/2023 SERVICE TIME: 11:53 AM Provisional Diagnosis/Treatment Plan: FLUOROSCOPIC GUIDANCE FOR NEEDLE PLACEMENT - Bilateral Subjective HPI: This is a 68 year old female who presents with OA of bilateral feet MEDICATIONS: Prior to Admission medications as of 08/03/23 1142 Medication Sig Last Dose Taking pantoprazole DR (PROTONIX) 40 mg tablet take 1 tablet by mouth twice a day 08/03/2023 Yes colestipol (COLESTID) 1 gram tablet TAKE 2 TABLETS BY MOUTH TWICE A DAY 08/03/2023 Yes hydrOXYchloroQUINE (PLAQUENIL) 200 mg tablet take 1 tablet by mouth twice a day with food 08/03/2023 Yes metoprolol succinate ER (TOPROL XL) 50 mg 24 hr tablet TAKE 1 TABLET BY MOUTH IN THE MORNING AND 2 TABLETS BY MOUTH IN THE EVENING 08/03/2023 Yes ELIQUIS 5 mg tab(s) Take 5 mg by mouth twice daily. 08/02/2023 Yes alendronate (FOSAMAX) 70 mg tablet Take 1 tablet by mouth one time a week. In the morning with a full glass of water, on an empty stomach. Do not take anything else by mouth or lie down for the next 30 minutes. 08/03/2023 Yes MV with Ssq-Stuvtzol-Jatmqd (CENTRUM SILVER) 0.4 mg-300 mcg- 250 mcg tab Take 1 tablet by mouth once daily. 08/03/2023 Yes celecoxib (CELEBREX) 200 mg capsule Take 200 mg by mouth twice daily. 08/03/2023 Yes Bifidobacterium infantis (ALIGN ORAL) Take by mouth once daily. 08/03/2023 Yes levothyroxine (SYNTHROID) 75 mcg tablet Take 75 mcg by mouth once daily. 08/03/2023 Yes furosemide (LASIX) 40 mg tablet Take 40 mg by mouth once daily. 08/03/2023 Yes multivitamins w-minerals/lut(CENTRUM SILVER TAB) Take one(1) tablet daily. 08/03/2023 Yes amoxicillin (AMOXIL) 500 mg capsule Take 4 tablets one hour prior to dental procedure mesalamine (CANASA) 1,000 mg suppository 1 Suppository by RECTAL route daily at bedtime. Mesalamine (LIALDA) 1.2 gram EC tablet take 4 tablets by mouth once daily cholestyramine-sucrose (QUESTRAN) 4 gram powder Take 4 g by mouth three times daily with meals. ferrous sulfate (IRON) 325 mg (65 mg iron) tablet Take 1 tablet by mouth once daily. acetaminophen (TYLENOL) 500 mg tablet Take 1 tablet by mouth every 4 hours as needed for pain. czstwkx-gscipkfyw-pfizolw D3 500 mg-5 mcg (200 unit) per tablet Take 1 tablet by mouth three times daily. sucralfate (CARAFATE) 100 mg/mL suspension Take 10 mL by mouth four times daily. atorvastatin (LIPITOR) 40 mg tablet Take 1 tablet by mouth once daily. Patient taking differently: Take 40 mg by mouth two times a day. belimumab (BENLYSTA INTRAVENOUS) Inject intravenously. Patient reports she receives infusion every 3 months venlafaxine ER (EFFEXOR XR) 150 mg 24 hr capsule Take 1 capsule by mouth once daily. busPIRone (BUSPAR) 10 mg tablet Take 10 mg by mouth daily at bedtime. spironolactone (ALDACTONE) 50 mg tablet Take 50 mg by mouth once daily. Cholecalciferol, Vitamin D3, 2,000 unit cap Take by mouth once daily. vitamin b complex(B COMPLEX TAB) one daily ALLERGIES Allergen Reactions Dofetilide Other: See Comments, Anaphylaxis V-tach Iodinated Contrast * Other: See Comments (Deep seafood) hot flashes, sweating. Other reaction(s): over heated/nausea Sulfa (Sulfonamide * Vomiting total body swelling and kidney shut down, body aches and rash Contrast Dye Other: See Comments (Deep seafood) hot flashes, sweating. Iodine Other: See Comments Hot flashes and sweating Codeine Other: See Comments severe headaches Compazine [Prochlor* Other: See Comments loss control of left side of face Tetnus [Tetanus Vac* Other: See Comments red spot in area of shot Objective PHYSICAL EXAM: The remainder of the physical exam is noncontributory. GENERAL: Alert, no distress, cooperative LUNGS: Lungs clear to auscultation, Good diaphragmatic excursion CARDIAC: Normal S1 and S2; no rubs, murmurs, or gallops BP 132/71 Pulse 78 Temp 36.1 ?C (97 ?F) (Temporal) Resp 16 LMP 07/17/2011 (Within Years) SpO2 98% PAIN ASSESSMENT: PAIN EVALUATION 08/03/2023 1143 Pain Level: 8 Pain Location: Foot-Right bilateral Assessment/Plan Active Problems: Primary osteoarthritis of both feet [M19.071, M19.072] Medication and Non-Pharmacologic VTE Prophylaxis/Anticoagulant s VTE Prophylaxis: N/A SIGNATURE: Fawn Billy APRN.CNP PATIENT NAME: Jesus Wolf DATE: August 03, 2023 TIME: 11:52 AM Normal [facility] OPERATIVE NOon 08-03-2023 OPERATIVE NO HNO ID: [id number] Author: Dalila Cervantes DPM Service: Podiatry Author Type: Physician Type: Operative Report Filed: 08/03/2023 1:28 PM Note Text: Dalila Cervantes DPM Physician Podiatry Operative Report Signed Date of Service: 08/03/2023 12:40 PM Case Time: Procedures: Surgeons: 08/03/2023 12:40 AM FLUOROSCOPIC GUIDANCE FOR NEEDLE PLACEMENT ARTHROCENTESIS,ASPIRATION AND/OR INJECTION,SMALL JOINT OR BURSA W/O US GUIDANCE Dalila Cervantes DPM Miggantz, Sydney, DPM 08/03/2023 12:40 PM FLUOROSCOPIC GUIDANCE FOR NEEDLE PLACEMENT ARTHROCENTESIS,ASPIRATION AND/OR INJECTION,SMALL JOINT OR BURSA W/O US GUIDANCE KHADIJAH Balbuena Sydney, DPM [facility] OPER[facility]IVE REPORT NAME: JESUS WOLF [facility] #: [id number] DATE: 08/03/2023 AGE: 68 SURGEON 1: Dalila Cervantes DPM SURGEON 2: MATLAB DEVELOPER 1: Angie See DPM OPERATION: 1. Fluoroscopic guidance for needle placement, bilateral feet (CPT 15911). 2. Intra-articular local anesthetic cortisone injection, second through fourth tarsometatarsal joints of both feet (CPT 14863). ANESTHESIA: 4 CC of Local consisting of 4 mL of 0.5% Marcaine plain and mixed with 1 mL of Kenalog 40 for each foot. PREOPERATIVE DIAGNOSIS: Second through fourth tarsometatarsal joint osteoarthritis with painful synovitis, bilateral feet. POSTOPERATIVE DIAGNOSIS: Second through fourth tarsometatarsal joint osteoarthritis with painful synovitis, bilateral feet. OPERATIVE INDICATIONS: This 68-year-old female contacted our office on July 02, 2023 requesting fluoroscopic-guided local anesthetic cortisone injection in both feet in her midfoot tarsometatarsal joints due to recurrence of pain. She has had this done before and would like to proceed with the same procedures and declined further conservative measures. OPERATIVE FINDINGS: Consistent with preop clinical and radiographic examinations. OPERATIVE PROCEDURE: The patient was brought from the preoperative holding area to the OR and left on the gurney. Utilizing the FluoroScan, we marked out her second through fourth tarsometatarsal joints of both feet dorsally with an ink pen. After this was completed, the skin was prepped with both alcohol and painted with Betadine. We then injected approximately 1.25 mL of the mixture of the local anesthetic cortisone into each joint of both feet. The area was cleansed with alcohol. The patient was then discharged from the OR to recovery room and then to home. She will follow up in our office on an as needed basis, pending postprocedure progress. She was transported from the OR to recovery room with vital signs stable and vascular status intact to both feet. The procedure was performed in conjunction with the residents, who were present in the operating room today under my direct supervision from skin to skin. START TIME: 12:52 PM. END TIME: 12:58 PM. ESTIMATED BLOOD LOSS: None. DRAINS: None. SPECIMENS: None. PROPHYLAXIS: None. MATERIALS: Local anesthetic mixture as above. COMPLICATIONS: None. CONDITION: Satisfactory. Dalila Cervantes DPM Normal [facility] Sarita 07-20-2023 GILMA Telephone (LOORRM) ----- LUCIANOJESUS JACKSON ([id number]) 1955 F Date Time Provider Department 07/20/23 DALILA CERVANTES During your visit today, we recorded the following information about you: Lisa Ramos 07/20/2023 2:59 PM Signed Spoke to patient and she is scheduled for bilateral cortisone injection at [facility] for 08/03/23 Allergies As of Date: 07/20/2023 Noted Allergy Reaction DOFETILIDE 03/15/2020 14 - Other: See Comments 10 - Anaphylaxis Comments: V-tach IODINATED CONTRAST MEDIA 08/28/2010 14 - Other: See Comments Comments: (Deep seafood) hot flashes, sweating. Other reaction(s): over heated/nausea SULFA (SULFONAMIDE ANTIBIOTICS) 02/21/2010 11 - Vomiting Comments: total body swelling and kidney shut down, body aches and rash CONTRAST DYE 08/28/2010 14 - Other: See Comments Comments: (Deep seafood) hot flashes, sweating. IODINE 02/04/2023 14 - Other: See Comments Comments: Hot flashes and sweating CODEINE 02/21/2010 14 - Other: See Comments Comments: severe headaches COMPAZINE (PROCHLORPERAZINE EDISY*02/21/2010 14 - Other: See Comments Comments: loss control of left side of face TETNUS (TETANUS VACCINES AND TOXO*02/21/2010 14 - Other: See Comments Comments: red spot in area of shot Date Reviewed: 07/02/2023 Reviewed by: Selin Birmingham - Fully Assessed Reason for Visit: Surgical Followup [104] Prescriptions as of 07/20/2023 - pantoprazole DR (PROTONIX) 40 mg tablet take 1 tablet by mouth twice a day - amoxicillin (AMOXIL) 500 mg capsule Take 4 tablets one hour prior to dental procedure - colestipol (COLESTID) 1 gram tablet TAKE 2 TABLETS BY MOUTH TWICE A DAY - mesalamine (CANASA) 1,000 mg suppository 1 Suppository by RECTAL route daily at bedtime. - Mesalamine (LIALDA) 1.2 gram EC tablet take 4 tablets by mouth once daily - hydrOXYchloroQUINE (PLAQUENIL) 200 mg tablet take 1 tablet by mouth twice a day with food - metoprolol succinate ER (TOPROL XL) 50 mg 24 hr tablet TAKE 1 TABLET BY MOUTH IN THE MORNING AND 2 TABLETS BY MOUTH IN THE EVENING - ELIQUIS 5 mg tab(s) Take 5 mg by mouth twice daily. - cholestyramine-sucrose (QUESTRAN) 4 gram powder Take 4 g by mouth three times daily with meals. - ferrous sulfate (IRON) 325 mg (65 mg iron) tablet Take 1 tablet by mouth once daily. - alendronate (FOSAMAX) 70 mg tablet Take 1 tablet by mouth one time a week. In the morning with a full glass of water, on an empty stomach. Do not take anything else by mouth or lie down for the next 30 minutes. - acetaminophen (TYLENOL) 500 mg tablet Take 1 tablet by mouth every 4 hours as needed for pain. - actwtdq-luebsihnh-kjdjbpt D3 500 mg-5 mcg (200 unit) per tablet Take 1 tablet by mouth three times daily. - MV with Azx-Eqasvmqn-Edkrhu (CENTRUM SILVER) 0.4 mg-300 mcg- 250 mcg tab Take 1 tablet by mouth once daily. - celecoxib (CELEBREX) 200 mg capsule Take 200 mg by mouth twice daily. - sucralfate (CARAFATE) 100 mg/mL suspension Take 10 mL by mouth four times daily. - atorvastatin (LIPITOR) 40 mg tablet Take 1 tablet by mouth once daily. - Bifidobacterium infantis (ALIGN ORAL) Take by mouth once daily. - belimumab (BENLYSTA INTRAVENOUS) Inject intravenously. Patient reports she receives infusion every 3 months - venlafaxine ER (EFFEXOR XR) 150 mg 24 hr capsule Take 1 capsule by mouth once daily. - levothyroxine (SYNTHROID) 75 mcg tablet Take 75 mcg by mouth once daily. - furosemide (LASIX) 40 mg tablet Take 40 mg by mouth once daily. - busPIRone (BUSPAR) 10 mg tablet Take 10 mg by mouth daily at bedtime. - spironolactone (ALDACTONE) 50 mg tablet Take 50 mg by mouth once daily. - Cholecalciferol, Vitamin D3, 2,000 unit cap Take by mouth once daily. - vitamin b complex(B COMPLEX TAB) one daily - multivitamins w-minerals/lut(CENTRUM SILVER TAB) Take one(1) tablet daily. Problem List As Of Date 07/20/2023 Noted Resolved Edema [R60.9] 02/22/2010 Proteinuria [R80.9] 02/22/2010 Essential hypertension [I10] 02/22/2010 Atrial fibrillation (HCC) [I48.91] 02/22/2010 Membranous Glomerulonephritis [N05.2] 03/15/2010 Vitamin D Deficiency [E55.9] 05/03/2010 SLE (systemic lupus erythematosus) (HCC) [M32.9]07/16/2011 Fibromyalgia [M79.7] 03/10/2012 Sleep apnea [G47.30] 07/29/2012 Encounter for long-term (current) use of other *11/10/2012 Osteoarthritis of ankle and foot [M19.079] 01/02/2014 HALLUX VALGUS ACQUIRED [M20.10] 01/02/2014 Other hammer toe (acquired) [M20.40] 01/02/2014 Enthesopathy of ankle and tarsus, unspecified [*01/02/2014 Lesion of plantar nerve [G57.60] 01/02/2014 Neuralgia, neuritis, and radiculitis, unspecifi*01/02/2014 Foot pain, left [M79.672] 08/07/2015 Osteoarthrosis, localized, secondary, ankle or *08/07/2015 04/02/2020 Other synovitis and tenosynovitis, unspecified *08/07/2015 Osteoarthrosis of ankle and foot, (more content not included)... Normal [facility] 07-07-2023 [facility] Telephone (CYNTHIAORRM) ----- JESUS WOLF ([id number]) 1955 F Date Time Provider Department 07/07/23 DALILA CERVANTES During your visit today, we recorded the following information about you: Olga Amado 07/07/2023 3:25 PM Signed [facility] requesting call back to schedule (surgery)with Dr. Cervantes. Left direct number to return call. [phone] Allergies As of Date: 07/07/2023 Noted Allergy Reaction DOFETILIDE 03/15/2020 14 - Other: See Comments 10 - Anaphylaxis Comments: V-tach IODINATED CONTRAST MEDIA 08/28/2010 14 - Other: See Comments Comments: (Deep seafood) hot flashes, sweating. Other reaction(s): over heated/nausea SULFA (SULFONAMIDE ANTIBIOTICS) 02/21/2010 11 - Vomiting Comments: total body swelling and kidney shut down, body aches and rash CONTRAST DYE 08/28/2010 14 - Other: See Comments Comments: (Deep seafood) hot flashes, sweating. IODINE 02/04/2023 14 - Other: See Comments Comments: Hot flashes and sweating CODEINE 02/21/2010 14 - Other: See Comments Comments: severe headaches COMPAZINE (PROCHLORPERAZINE EDISY*02/21/2010 14 - Other: See Comments Comments: loss control of left side of face TETNUS (TETANUS VACCINES AND TOXO*02/21/2010 14 - Other: See Comments Comments: red spot in area of shot Date Reviewed: 07/02/2023 Reviewed by: Selin Birmingham - Fully Assessed Reason for Visit: Surgical Followup [104] Prescriptions as of 07/07/2023 - pantoprazole DR (PROTONIX) 40 mg tablet take 1 tablet by mouth twice a day - amoxicillin (AMOXIL) 500 mg capsule Take 4 tablets one hour prior to dental procedure - colestipol (COLESTID) 1 gram tablet TAKE 2 TABLETS BY MOUTH TWICE A DAY - mesalamine (CANASA) 1,000 mg suppository 1 Suppository by RECTAL route daily at bedtime. - Mesalamine (LIALDA) 1.2 gram EC tablet take 4 tablets by mouth once daily - hydrOXYchloroQUINE (PLAQUENIL) 200 mg tablet take 1 tablet by mouth twice a day with food - metoprolol succinate ER (TOPROL XL) 50 mg 24 hr tablet TAKE 1 TABLET BY MOUTH IN THE MORNING AND 2 TABLETS BY MOUTH IN THE EVENING - ELIQUIS 5 mg tab(s) Take 5 mg by mouth twice daily. - cholestyramine-sucrose (QUESTRAN) 4 gram powder Take 4 g by mouth three times daily with meals. - ferrous sulfate (IRON) 325 mg (65 mg iron) tablet Take 1 tablet by mouth once daily. - alendronate (FOSAMAX) 70 mg tablet Take 1 tablet by mouth one time a week. In the morning with a full glass of water, on an empty stomach. Do not take anything else by mouth or lie down for the next 30 minutes. - acetaminophen (TYLENOL) 500 mg tablet Take 1 tablet by mouth every 4 hours as needed for pain. - jfqquit-hnecchnbl-bnpybeg D3 500 mg-5 mcg (200 unit) per tablet Take 1 tablet by mouth three times daily. - MV with Yhw-Elonfwya-Uzfavh (CENTRUM SILVER) 0.4 mg-300 mcg- 250 mcg tab Take 1 tablet by mouth once daily. - celecoxib (CELEBREX) 200 mg capsule Take 200 mg by mouth twice daily. - sucralfate (CARAFATE) 100 mg/mL suspension Take 10 mL by mouth four times daily. - atorvastatin (LIPITOR) 40 mg tablet Take 1 tablet by mouth once daily. - Bifidobacterium infantis (ALIGN ORAL) Take by mouth once daily. - belimumab (BENLYSTA INTRAVENOUS) Inject intravenously. Patient reports she receives infusion every 3 months - venlafaxine ER (EFFEXOR XR) 150 mg 24 hr capsule Take 1 capsule by mouth once daily. - levothyroxine (SYNTHROID) 75 mcg tablet Take 75 mcg by mouth once daily. - furosemide (LASIX) 40 mg tablet Take 40 mg by mouth once daily. - busPIRone (BUSPAR) 10 mg tablet Take 10 mg by mouth daily at bedtime. - spironolactone (ALDACTONE) 50 mg tablet Take 50 mg by mouth once daily. - Cholecalciferol, Vitamin D3, 2,000 unit cap Take by mouth once daily. - vitamin b complex(B COMPLEX TAB) one daily - multivitamins w-minerals/lut(CENTRUM SILVER TAB) Take one(1) tablet daily. Problem List As Of Date 07/07/2023 Noted Resolved Edema [R60.9] 02/22/2010 Proteinuria [R80.9] 02/22/2010 Essential hypertension [I10] 02/22/2010 Atrial fibrillation (HCC) [I48.91] 02/22/2010 Membranous Glomerulonephritis [N05.2] 03/15/2010 Vitamin D Deficiency [E55.9] 05/03/2010 SLE (systemic lupus erythematosus) (HCC) [M32.9]07/16/2011 Fibromyalgia [M79.7] 03/10/2012 Sleep apnea [G47.30] 07/29/2012 Encounter for long-term (current) use of other *11/10/2012 Osteoarthritis of ankle and foot [M19.079] 01/02/2014 HALLUX VALGUS ACQUIRED [M20.10] 01/02/2014 Other hammer toe (acquired) [M20.40] 01/02/2014 Enthesopathy of ankle and tarsus, unspecified [*01/02/2014 Lesion of plantar nerve [G57.60] 01/02/2014 Neuralgia, neuritis, and radiculitis, unspecifi*01/02/2014 Foot pain, left [M79.672] 08/07/2015 Osteoarthrosis, localized, secondary, ankle or *08/07/2015 04/02/2020 Other synovitis and tenosynovitis, unspecified *08/07/2015 Osteoarthrosis of (more content not included)... Normal [facility] CNOVon 07-02-2023 CNOV Office Visit (PDAVON ) ----- LUCIANOJESUS Rowley Ezio ([id number]) 1955 F Date Time Provider Department 07/02/23 10:15 AM BEVERLY FRANCO PDAVON During your visit today, we recorded the following information about you: Beverly Franco DPM 07/02/2023 12:08 PM Signed SERVICE DATE: July 02, 2023 PCP: Wojciech Treviño MD, DO Subjective Patient ID: Jesus is a 68 year old female. Patient presents today with complaint of pain in her left midfoot on the medial side which started several weeks ago while she is in [place] at the [employer] show and on her feet an extensive amount of time. She also is concerned about changes at the tip of her left fifth toe Chief Complaint: Patient presents with: Foot Pain (Midfoot): left PAIN EVALUATION 07/02/2023 1025 Pain Level: 7 Pain Location: Foot-Left Description: Sharp Duration Units: Weeks Frequency: Continuous Comments: custom inserts HPI patient has had ulceration of the right second toe which has been resolved with wound care and topical treatment, she has history of significant midfoot osteoarthritic changes and has had image guided injections in the past. She is wearing a pair of old orthotics Review of Systems ACTIVE PROBLEM LIST Edema Proteinuria Essential Hypertension Atrial Fibrillation (Hcc) Membranous Glomerulonephritis Vitamin D Deficiency Sle (Systemic Lupus Erythematosus) (Hcc) Fibromyalgia Sleep Apnea Encounter for Long-Term (Current) Use of Other High-Risk Medications Osteoarthritis of ankle and foot HALLUX VALGUS ACQUIRED Other Hammer Toe (Acquired) Enthesopathy of Ankle and Tarsus, Unspecified Lesion of Plantar Nerve Neuralgia, Neuritis, and Radiculitis, Unspecified Foot Pain, Left Other Synovitis and Tenosynovitis, Unspecified Ankle and Foot Osteoarthrosis of Ankle and Foot, Left Synovitis of Left Foot Synovitis of Right Foot Vocal Cord Edema Primary Osteoarthritis of Both Feet Synovitis of Foot Conjunctivitis Keratopathy Obesity, Class III, BMI >= 40 Hypothyroidism Chronic Congestive Heart Failure (Hcc) Status Post Right Hip Replacement S/P Total Hip Arthroplasty Mixed Hyperlipidemia Obesity, Class II, Bmi 35-39.9 Thoracic Ascending Aortic Aneurysm (Hcc) Hypercalcemia Hyperparathyroid (Hcc) Thin Blood (Hcc) PAST MEDICAL HISTORY Diagnosis Date Arrhythmia Atrial fibrillation (HCC) on coumadin Herniated intervertebral disk HTN (hypertension) Hyperlipemia Kidney disease MONI (obstructive sleep apnea) no longer using CPAP since 60 lb weight loss Other acute pancreatitis with uninfected necrosis SLE (systemic lupus erythematosus) (HCC) Sleep apnea 07/29/2012 PAST SURGICAL HISTORY Procedure Laterality Date APPENDECTOMY CARPAL TUNNEL RIGHT WRIST surgical correction COLONOSCOPY 05/10/2019 [facility] COLONOSCOPY GEN ANES 07/23/2020 Dr. Reinoso/Diverticulosis/Hemo rrhoids/ Ulcerative Colitis/Rpt in 2 yrs. COLONOSCOPY SCREENING 03/2023 EGD EUS 01/11/2020 [facility] LASIK Right prior to 1999 MRI PANC/JEANIE WO/W IVCON 12/20/2019 OVARIAN CYSTECTOMY PAST SURGICAL HISTORY OF 07/2013 bilateral foot procedure, Sehrry PAST SURGICAL HISTORY OF Ablation X2 TONSILLECTOMY HX FAMILY HISTORY Problem Relation Age of Onset Alzheimer's Disease Father Hypertension Father Cataract Mother Hypertension Mother Colon Cancer Mother Cataract Sister Hypertension Sister Colon Cancer Paternal Uncle Social History Tobacco Use Smoking status: Never Smokeless tobacco: Never Vaping Use Vaping Use: Never used Substance Use Topics Alcohol use: Yes Comment: very rare Drug use: No Comment: denies tx for drug/alcohol abuse in the past. ALLERGIES Allergen Reactions Dofetilide Other: See Comments, Anaphylaxis V-tach Iodinated Contrast * Other: See Comments (Deep seafood) hot flashes, sweating. Other reaction(s): over heated/nausea Sulfa (Sulfonamide * Vomiting total body swelling and kidney shut down, body aches and rash Contrast Dye Other: See Comments (Deep seafood) hot flashes, sweating. Iodine Other: See Comments Hot flashes and sweating Codeine Other: See Comments severe headaches Compazine [Prochlor* Other: See Comments loss control of left side of face Tetnus [Tetanus Vac* Other: See Comments red spot in area of shot MEDICATIONS: pantoprazole DR (PROTONIX) 40 mg tablet take 1 tablet by mouth twice a day amoxicillin (AMOXIL) 500 mg capsule Take 4 tablets one hour prior to dental procedure colestipol (COLESTID) 1 gram tablet TAKE 2 TABLETS BY MOUTH TWICE A DAY mesalamine (CANASA) 1,000 mg suppository 1 Suppository by RECTAL route daily at bedtime. Mesalamine (LIALDA) 1.2 gram EC tablet take 4 tablets by mouth once daily hydrOXYchloroQUINE (PLAQUENIL) 200 mg tablet take 1 tablet by mouth (more content not included)... Normal [facility] XR FOOT 3V AP/LAT/OBL BILon 07-02-2023 XR FOOT 3V AP/LAT/OBL JEANIE * * *Final Report* * * DATE OF EXAM: Jul 02 2023 10:41AM AFR [id number] - XR FOOT 3V AP/LAT/OBL JEANIE / PROCEDURE REASON: Pain in left foot * * * * Physician Interpretation * * * * EXAMINATION / TECHNIQUE: XR FOOT 3V AP/LAT/OBL JEANIE PATIENT/TECHNOLOGIST PROVIDED HISTORY: CALLOUS PLANTAR SURFACE RT FOOT,LT FOOT PAIN CLINICAL INFORMATION ( PROVIDED BY ORDERING CLINICIAN) : Pain in left foot COMPARISON: Left foot 05/04/2019 and right foot 05/24/2014. RESULT: No acute fracture or dislocation. Bilateral pes planus and severe degenerative changes from the second through fifth TMT joints, progressed since prior exams. Similar appearance of plate and screw fixation right first MTP arthrodesis, without hardware complication. Right 2nd toe PIP joint resection arthroplasty is also noted. Severe degenerative changes of the first TMT right foot with a large dorsal osteophyte. Severe degenerative changes of the right great toe IP joint. Moderate left hallux valgus bunion formation. Moderate sized osseous fragment seen dorsal left midfoot at the naviculocuneiform joint, with prominent subchondral cystic changes in the navicular. IMPRESSION: Remote 1st MTP joint arthrodesis with intact hardware and solid bony fusion. Pes planus with severe degenerative change midfoot bilaterally, possibly neuropathic, progressed since prior exams. Rn Documentation: PSCB Transcribe Date/Time: Jul 02 2023 11:42A Dictated by : JOSÉ MIGUEL BRITO MD This examination was interpreted and the report reviewed and electronically signed by: CHIKIS GARCIA MD on Jul 02 2023 12:38PM EST [id number] Normal [facility] ----- JESUS WOLF ([id number]) 1955 F Date Time Provider Department 06/10/23 HORACE HARRELL ORQ During your visit today, we recorded the following information about you: MaciejAgatha Jayna 06/10/2023 11:16 AM Signed Patient needs to have a dental procedure and needs an antibiotic. Patient states you are the last orthopedic surgeon she seen. Please send prescription to the [facility] in [facility]. patient would like to be notified when prescription has been sent in. Please advise Horace Harrell PA-C 06/11/2023 4:06 PM Signed Prescription sent to the pharmacy Horace Harrell PA-C Allergies As of Date: 06/10/2023 Noted Allergy Reaction DOFETILIDE 03/15/2020 14 - Other: See Comments 10 - Anaphylaxis Comments: V-tach IODINATED CONTRAST MEDIA 08/28/2010 14 - Other: See Comments Comments: (Deep seafood) hot flashes, sweating. Other reaction(s): over heated/nausea SULFA (SULFONAMIDE ANTIBIOTICS) 02/21/2010 11 - Vomiting Comments: total body swelling and kidney shut down, body aches and rash CONTRAST DYE 08/28/2010 14 - Other: See Comments Comments: (Deep seafood) hot flashes, sweating. IODINE 02/04/2023 14 - Other: See Comments Comments: Hot flashes and sweating CODEINE 02/21/2010 14 - Other: See Comments Comments: severe headaches COMPAZINE (PROCHLORPERAZINE EDISY*02/21/2010 14 - Other: See Comments Comments: loss control of left side of face TETNUS (TETANUS VACCINES AND TOXO*02/21/2010 14 - Other: See Comments Comments: red spot in area of shot Date Reviewed: 05/21/2023 Reviewed by: Selin Birmingham - Fully Assessed Reason for Visit: Medication Question [1478] Order(s):amoxicillin (AMOXIL) 500 mg capsuleTake 4 tablets one hour prior to dental procedureDisp: 4 capsuleRfl: 3 Prescriptions as of 06/11/2023 - amoxicillin (AMOXIL) 500 mg capsule Take 4 tablets one hour prior to dental procedure - colestipol (COLESTID) 1 gram tablet TAKE 2 TABLETS BY MOUTH TWICE A DAY - mesalamine (CANASA) 1,000 mg suppository 1 Suppository by RECTAL route daily at bedtime. - Mesalamine (LIALDA) 1.2 gram EC tablet take 4 tablets by mouth once daily - pantoprazole DR (PROTONIX) 40 mg tablet take 1 tablet by mouth twice a day - hydrOXYchloroQUINE (PLAQUENIL) 200 mg tablet take 1 tablet by mouth twice a day with food - metoprolol succinate ER (TOPROL XL) 50 mg 24 hr tablet TAKE 1 TABLET BY MOUTH IN THE MORNING AND 2 TABLETS BY MOUTH IN THE EVENING - ELIQUIS 5 mg tab(s) Take 5 mg by mouth twice daily. - cholestyramine-sucrose (QUESTRAN) 4 gram powder Take 4 g by mouth three times daily with meals. - ferrous sulfate (IRON) 325 mg (65 mg iron) tablet Take 1 tablet by mouth once daily. - alendronate (FOSAMAX) 70 mg tablet Take 1 tablet by mouth one time a week. In the morning with a full glass of water, on an empty stomach. Do not take anything else by mouth or lie down for the next 30 minutes. - acetaminophen (TYLENOL) 500 mg tablet Take 1 tablet by mouth every 4 hours as needed for pain. - agmjqrg-vtbffbabs-kcnpubp D3 500 mg-5 mcg (200 unit) per tablet Take 1 tablet by mouth three times daily. - MV with Twu-Cbspuaez-Jplkbz (CENTRUM SILVER) 0.4 mg-300 mcg- 250 mcg tab Take 1 tablet by mouth once daily. - celecoxib (CELEBREX) 200 mg capsule Take 200 mg by mouth twice daily. - sucralfate (CARAFATE) 100 mg/mL suspension Take 10 mL by mouth four times daily. - atorvastatin (LIPITOR) 40 mg tablet Take 1 tablet by mouth once daily. - Bifidobacterium infantis (ALIGN ORAL) Take by mouth once daily. - belimumab (BENLYSTA INTRAVENOUS) Inject intravenously. Patient reports she receives infusion every 3 months - venlafaxine ER (EFFEXOR XR) 150 mg 24 hr capsule Take 1 capsule by mouth once daily. - levothyroxine (SYNTHROID) 75 mcg tablet Take 75 mcg by mouth once daily. - furosemide (LASIX) 40 mg tablet Take 40 mg by mouth once daily. - busPIRone (BUSPAR) 10 mg tablet Take 10 mg by mouth daily at bedtime. - spironolactone (ALDACTONE) 50 mg tablet Take 50 mg by mouth once daily. - Cholecalciferol, Vitamin D3, 2,000 unit cap Take by mouth once daily. - vitamin b complex(B COMPLEX TAB) one daily - multivitamins w-minerals/lut(CENTRUM SILVER TAB) Take one(1) tablet daily. Facility-Administered Medications as of 06/11/2023 - perflutren lipid microspheres 1.3 mL in NaCl (PF) 0.9% 10 mL injection (DEFINITY) - sodium chloride 0.9 % (flush) 10 mL (BD POSIFLUSH) Problem List As Of Date 06/10/2023 Noted Resolved Edema [R60.9] 02/22/2010 Proteinuria [R80.9] 02/22/2010 Essential hypertension [I10] 02/22/2010 Atrial fibrillation (HCC) [I48.91] 02/22/2010 Membranous Glomerulonephritis [N05.2] 03/15/2010 Vitamin D Deficiency [E55.9] 05/03/2010 SLE (systemic lupus erythematosus) (HCC) [M32.9]07/16/2011 Fibromyalgia [M79.7] 03/10/2012 Sleep apnea [G47.30] 12 (more content not included)... Normal [facility] CNOVon 05-21-2023 CNOV Office Visit (PDAVON ) ----- JESUS WOLF ([id number]) 1955 F Date Time Provider Department 05/21/23 10:15 AM BEVERLY FRANCO PDAVON During your visit today, we recorded the following information about you: Beverly Franco, KHADIJAH 05/21/2023 12:04 PM Signed SERVICE DATE: May 21, 2023 PCP: Wojciech Treviño MD, DO Subjective Patient ID: Jesus is a 68 year old female. Patient presents today concerned about tissue breakdown on the side of her right second toe. States that it rubs against the adjacent big toe. She has been protecting it with a Band-Aid, sometimes Vaseline Chief Complaint: Patient presents with: Ulcer: Right foot PAIN EVALUATION No data found in the last 1 encounters. HPI patient has had previous ulcers, patient redressed with local wound care and patient appropriately obtaining accommodative shoe gear but now has developed a new wound. She denies fever, chills, nausea, malaise, shortness of breath or chest pain Review of Systems ACTIVE PROBLEM LIST Edema Proteinuria Essential Hypertension Atrial Fibrillation (Hcc) Membranous Glomerulonephritis Vitamin D Deficiency Sle (Systemic Lupus Erythematosus) (Hcc) Fibromyalgia Sleep Apnea Encounter for Long-Term (Current) Use of Other High-Risk Medications Osteoarthritis of ankle and foot HALLUX VALGUS ACQUIRED Other Hammer Toe (Acquired) Enthesopathy of Ankle and Tarsus, Unspecified Lesion of Plantar Nerve Neuralgia, Neuritis, and Radiculitis, Unspecified Foot Pain, Left Other Synovitis and Tenosynovitis, Unspecified Ankle and Foot Osteoarthrosis of Ankle and Foot, Left Synovitis of Left Foot Synovitis of Right Foot Vocal Cord Edema Primary Osteoarthritis of Both Feet Synovitis of Foot Conjunctivitis Keratopathy Obesity, Class III, BMI >= 40 Hypothyroidism Chronic Congestive Heart Failure (Hcc) Status Post Right Hip Replacement S/P Total Hip Arthroplasty Mixed Hyperlipidemia Obesity, Class II, Bmi 35-39.9 Thoracic Ascending Aortic Aneurysm (Hcc) Hypercalcemia Hyperparathyroid (Hcc) Thin Blood (Hcc) PAST MEDICAL HISTORY Diagnosis Date Arrhythmia Atrial fibrillation (HCC) on coumadin Herniated intervertebral disk HTN (hypertension) Hyperlipemia Kidney disease MONI (obstructive sleep apnea) no longer using CPAP since 60 lb weight loss Other acute pancreatitis with uninfected necrosis SLE (systemic lupus erythematosus) ([facility]) Sleep apnea 07/29/2012 PAST SURGICAL HISTORY Procedure Laterality Date APPENDECTOMY CARPAL TUNNEL RIGHT WRIST surgical correction COLONOSCOPY 05/10/2019 [facility] COLONOSCOPY GEN ANES 07/23/2020 Dr. Reinoso/Diverticulosis/Hemo rrhoids/ Ulcerative Colitis/Rpt in 2 yrs. COLONOSCOPY SCREENING 03/2023 EGD EUS 01/11/2020 [facility] LASIK Right prior to 1999 MRI PANC/JEANIE WO/W IVCON 12/20/2019 OVARIAN CYSTECTOMY PAST SURGICAL HISTORY OF 07/2013 bilateral foot procedure, Sherry PAST SURGICAL HISTORY OF 2018,2019 Ablation X2 TONSILLECTOMY HX FAMILY HISTORY Problem Relation Age of Onset Alzheimer's Disease Father Hypertension Father Cataract Mother Hypertension Mother Colon Cancer Mother Cataract Sister Hypertension Sister Colon Cancer Paternal Uncle Social History Tobacco Use Smoking status: Never Smokeless tobacco: Never Vaping Use Vaping Use: Never used Substance Use Topics Alcohol use: Yes Comment: very rare Drug use: No Comment: denies tx for drug/alcohol abuse in the past. ALLERGIES Allergen Reactions Dofetilide Other: See Comments, Anaphylaxis V-tach Iodinated Contrast * Other: See Comments (Deep seafood) hot flashes, sweating. Other reaction(s): over heated/nausea Sulfa (Sulfonamide * Vomiting total body swelling and kidney shut down, body aches and rash Contrast Dye Other: See Comments (Deep seafood) hot flashes, sweating. Iodine Other: See Comments Hot flashes and sweating Codeine Other: See Comments severe headaches Compazine [Prochlor* Other: See Comments loss control of left side of face Tetnus [Tetanus Vac* Other: See Comments red spot in area of shot MEDICATIONS: colestipol (COLESTID) 1 gram tabletTAKE 2 TABLETS BY MOUTH TWICE A DAYDisp: 360 tabletRfl: 3 mesalamine (CANASA) 1,000 mg suppository1 Suppository by RECTAL route daily at bedtime.Disp: 30 SuppositoryRfl: 3 Mesalamine (LIALDA) 1.2 gram EC tablettake 4 tablets by mouth once dailyDisp: 360 tabletRfl: [address] (PROTONIX) 40 mg tablettake 1 tablet by mouth twice a dayDisp: 60 tabletRfl: 3 hydrOXYchloroQUINE (PLAQUENIL) 200 mg tablettake 1 tablet by mouth twice a day with foodDisp: 180 tabletRfl: 2 metoprolol succinate ER (TOPROL XL) 50 mg 24 hr tabletTAKE 1 TABLET BY MOUTH IN THE MORNING AND 2 TABLETS BY MOUTH IN THE EVENINGDisp: 270 tabletRfl: 3 ELIQUIS 5 mg tab(s)Garrett (more content not included)... Normal [facility] C3 SerPl-mCncon 04-22-2023 Complement C3 [Mass/Vol] 165 mg/dL Normal 86-166 [facility] Comment on above: Order Comment: Speci men Type: BLOOD SPECIMENOrdering Facility: [facility] Address: [address] [place] [address] Performed By: #### 4 485-9, 4498-2 ####[facility] LABCLIA [id number] [place] [address] [place]#### 33174-8 ####[facility] [id number] [address] LABCLIA [id number] [place] [address] C4 SerPl-mCncon 04-22-2023 Complement C4 [Mass/Vol] 38 mg/dL Normal 13-46 [facility] Comment on above: Order Comment: Speci men Type: BLOOD SPECIMENOrdering Facility: [facility] Address: [address] Performed By: #### 4 485-9, 4498-2 ####[facility] LABCLIA [id number] [address]#### [address]-4 ####[facility]CLIA [id number] [address] LABCLIA [id number] [place] [address] CBC W Auto Differential pane l (Bld)on 04-22-2023 Basophils (Bld) [#/Vol] 0.04 10*3/uL Normal <0.11 [facility] Comment on above: Order Comment: Speci men Type: BLOOD SPECIMEN [facility] Address: [address] Performed By: #### 1 989-3 #### [facility] CLIA [id number] [address] [place] [address] [place] Basophils/100 WBC (Bld) 0.6 % Normal [facility] Comment on above: Order Comment: Speci men Type: BLOOD SPECIMEN [facility] Address: [address] Performed By: #### 1 989-3 #### [facility] CLIA [id number] [address] [place] [address] [place] Differential cell count method Nom (Bld) Auto Normal [facility] Comment on above: Order Comment: Speci men Type: BLOOD SPECIMEN [facility] Address: [address] Performed By: #### 1 989-3 #### [facility] CLIA [id number] [address] [place] [address] [place] Eosinophils (Bld) [#/Vol] 0.19 10*3/uL Normal <0.46 [facility] Comment on above: Order Comment: Speci men Type: BLOOD SPECIMEN [facility] Address: [address] [place] [address] Performed By: #### 1 989-3 #### [facility] CLIA [id number] [address] [place] [address] [place] Eosinophils/100 WBC (Bld) 2.9 % Normal [facility] Comment on above: Order Comment: Speci men Type: BLOOD SPECIMEN [facility] Address: [address] [place] [address] Performed By: #### 1 989-3 #### [facility] CLIA [id number] [address] [place] [address] [place] Erythrocyte distribution width (RBC) [Ratio] 13.1 % Normal 11.5-15.0 [facility] Comment on above: Order Comment: Speci men Type: BLOOD SPECIMEN [facility] Address: [address] [place], [place] [address] Performed By: #### 1 989-3 #### [facility] CLIA [id number] [address] [place] [address] [place] Hematocrit (Bld) [Volume fraction] 37.0 % Normal 36.0-46.0 [facility] Comment on above: Order Comment: Speci men Type: BLOOD SPECIMEN [facility] Address: [address] [place], [place] [address] Performed By: #### 1 989-3 #### [facility] CLIA [id number] [address] [place] [address] [place] Hemoglobin (Bld) [Mass/Vol] 12.3 g/dL Normal 11.5-15.5 [facility] Comment on above: Order Comment: Speci men Type: BLOOD SPECIMEN [facility] Address: [address] [place] [address] Performed By: #### 1 989-3 #### [facility] CLIA [id number] [address] [place] [address] [place] Immature granulocytes (Bld) [#/Vol] 10*3/uL Normal <0.10 [facility] Comment on above: Order Comment: Speci men Type: BLOOD SPECIMEN [facility] Address: [address] Performed By: #### 1 989-3 #### [facility] CLIA [id number] [address] [place] [address] [place] Immature granulocytes/100 WBC (Bld) 0.3 % Normal [facility] Comment on above: Order Comment: Speci men Type: BLOOD SPECIMEN [facility] Address: [address] Performed By: #### 1 989-3 #### [facility] CLIA [id number] [address] [place] [address] [place] Lymphocytes (Bld) [#/Vol] 1.28 10*3/uL Normal 1.00-4.00 [facility] Comment on above: Order Comment: Speci men Type: BLOOD SPECIMEN [facility] Address: [address] [place] [address] Performed By: #### 1 989-3 #### [facility] CLIA [id number] [address] [place] [address] [place] Lymphocytes/100 WBC (Bld) 19.8 % Normal [facility] Comment on above: Order Comment: Speci men Type: BLOOD SPECIMEN [facility] Address: [address] Performed By: #### 1 989-3 #### [facility] CLIA [id number] [address] [place] MCH (RBC) [Entitic mass] 31.5 pg Normal 26.0-34.0 [facility] Comment on above: Order Comment: Speci men Type: BLOOD SPECIMEN [facility] Address: [address] [place], [place] [address] Performed By: #### 1 989-3 #### [facility] CLIA [id number] [address] [place] [address] [place] MCHC (RBC) [Mass/Vol] 33.2 g/dL Normal 30.5-36.0 [facility] Comment on above: Order Comment: Speci men Type: BLOOD SPECIMEN [facility] Address: [address] [place], [place] [address] Performed By: #### 1 989-3 #### [facility] CLIA [id number] [address] [place] [address] [place] MCV (RBC) [Entitic vol] 94.9 fL Normal 80.0-100.0 [facility] Comment on above: Order Comment: Speci men Type: BLOOD SPECIMEN [facility] Address: [address] [place], [place] [address] Performed By: #### 1 989-3 #### [facility] CLIA [id number] [address] [place] [address] [place] Monocytes (Bld) [#/Vol] 0.63 10*3/uL Normal <0.87 [facility] Comment on above: Order Comment: Speci men Type: BLOOD SPECIMEN [facility] Address: [address] [place], [place] [address] Performed By: #### 1 989-3 #### [facility] CLIA [id number] [address] [place] [address] [place] Monocytes/100 WBC (Bld) 9.7 % Normal [facility] Comment on above: Order Comment: Speci men Type: BLOOD SPECIMEN [facility] Address: [address] [place], [place] [address] Performed By: #### 1 989-3 #### [facility] CLIA [id number] [address] [place] [address] [place] Neutrophils (Bld) [#/Vol] 4.31 10*3/uL Normal 1.45-7.50 [facility] Comment on above: Order Comment: Speci men Type: BLOOD SPECIMEN [facility] Address: [address] [place] [address] Performed By: #### 1 989-3 #### [facility] CLIA [id number] [address] [place] [address] [place] Neutrophils/100 WBC (Bld) 66.7 % Normal [facility] Comment on above: Order Comment: Speci men Type: BLOOD SPECIMEN [facility] Address: [address] [place], [place] [address] Performed By: #### 1 989-3 #### [facility] CLIA [id number] [address] [place] [id number] [place] Nucleated RBC (Bld) [#/Vol] 10*3/uL Normal <0.01 [facility] Comment on above: Order Comment: Speci men Type: BLOOD SPECIMEN [facility] Address: [address] [place], [place] [address] Performed By: #### 1 989-3 #### [facility] CLIA [id number] [address] [place] [address] [place] Nucleated RBC/100 WBC (Bld) [Ratio] 0.0 /100 WBC Normal [facility] Comment on above: Order Comment: Speci men Type: BLOOD SPECIMEN [facility] Address: [facility] [address] Performed By: #### 1 989-3 #### [facility] CLIA [id number] [address] [place] [address] [place] Platelet mean volume (Bld) [Entitic vol] 9.5 fL Normal 9.0-12.7 [facility] Comment on above: Order Comment: Speci men Type: BLOOD SPECIMEN [facility] Address: [address] [place], [place] [address] Performed By: #### 1 989-3 #### [facility] CLIA [id number] [address] [place] [address] [place] Platelets (Bld) [#/Vol] 248 10*3/uL Normal 150-400 [facility] Comment on above: Order Comment: Speci men Type: BLOOD SPECIMEN [facility] Address: [address] [place], [place] [address] Performed By: #### 1 989-3 #### [facility] CLIA [id number] [address] [place] [address] [place] RBC (Bld) [#/Vol] 3.90 10*6/uL Normal 3.90-5.20 [facility] Comment on above: Order Comment: Speci men Type: BLOOD SPECIMEN [facility] Address: [address] [place] [address] Performed By: #### 1 989-3 #### [facility] CLIA [id number] [address] [place] [address] [place] WBC (Bld) [#/Vol] 6.47 10*3/uL Normal 3.70-11.00 [facility] Comment on above: Order Comment: Speci men Type: BLOOD SPECIMEN [facility] Address: [address] [place], [place] [address] Performed By: #### 1 989-3 #### [facility] CLIA [id number] [address] [place] [address] [place] Comprehensive metabolic 2000 panelon 04-22-2023 Albumin [Mass/Vol] 4.2 g/dL Normal 3.9-4.9 [facility] Comment on above: Order Comment: Speci men Type: BLOOD SPECIMEN [facility] Address: [address] [place], [place] [address] Performed By: #### D NAAB, 63880-0 #### [facility] CLIA [id number] [address] [place] [address] [place] ALP [Catalytic activity/Vol] 113 U/L Normal 34-123 [facility] Comment on above: Order Comment: Speci men Type: BLOOD SPECIMEN [facility] Address: [address] [place], [place] [address] Performed By: #### D NAAB, 46081-3 #### [facility] CLIA [id number] [address] [place] [address] [place] ALT [Catalytic activity/Vol] 22 U/L Normal 7-38 [facility] Comment on above: Order Comment: Speci men Type: BLOOD SPECIMEN [facility] Address: [address] [place], [place] [address] Performed By: #### D NAAB, 76718-3 #### [facility] CLIA [id number] [facility] [place] [address] [place] Anion gap [Moles/Vol] 10 mmol/L Normal 9-18 [facility] Comment on above: Order Comment: Speci men Type: BLOOD SPECIMEN [facility] Address: [address] [place], [place] [address] Performed By: #### D NAAB, 30685-3 #### [facility] CLIA [id number] [facility] [place] [address] [place] AST [Catalytic activity/Vol] 23 U/L Normal 13-35 [facility] Comment on above: Order Comment: Speci men Type: BLOOD SPECIMEN [facility] Address: [address] [place] [address] Performed By: #### D NAAB, 40127-8 #### [facility] CLIA [id number] [address] [place] [address] [place] Bilirubin [Mass/Vol] 0.5 mg/dL Normal 0.2-1.3 [facility] Comment on above: Order Comment: Speci men Type: BLOOD SPECIMEN [facility] Address: [address] [place], [place] [address] Performed By: #### D NAAB, 57756-0 #### [facility] CLIA [id number] [address] [place] [address] [place] Calcium [Mass/Vol] 9.2 mg/dL Normal 8.5-10.2 [facility] Comment on above: Order Comment: Speci men Type: BLOOD SPECIMEN [facility] Address: [address] [place], [place] [address] Performed By: #### D NAAB, 79332-2 #### [facility] CLIA [id number] [address] [place] [address] [place] Chloride [Moles/Vol] 110 mmol/L High 97-105 [facility] Comment on above: Order Comment: Speci men Type: BLOOD SPECIMEN [facility] Address: [address] [place] [address] Performed By: #### D NAAB, 18753-2 #### [facility] CLIA [id number] [address] [place] [address] [place] CO2 [Moles/Vol] 22 mmol/L Normal 22-30 [facility] Comment on above: Order Comment: Speci men Type: BLOOD SPECIMEN [facility] Address: [address] [place] [address] Performed By: #### D NAAB, 83350-5 #### [facility] CLIA [id number] [address] [place] [address] [place] Creatinine [Mass/Vol] 1.24 mg/dL High 0.58-0.96 [facility] Comment on above: Order Comment: Speci men Type: BLOOD SPECIMEN [facility] Address: [address] [place] [address] Performed By: #### D NAAB, 28057-5 #### [facility] CLIA [id number] [address] [place] [address] [place] Creatinine and Glomerular filtration rate.predicted panel (S/P/Bld) 48 mL/min/1.73m??? Low >=60 [facility] Comment on above: Order Comment: Isadorai men Type: BLOOD SPECIMEN [facility] Address: [address] [place] [address] Result Comment: Anna mated Glomerular Filtration Rate (eGFR) is calculated using the 2020 CKD-EPI creatinine equation. This equation utilizes serum creatinine, sex, and age as parameters. The creatinine assay has traceable calibration to isotope dilution-mass spectrometry. Refer to KDIGO guidelines for clinical interpretation. In patients with unstable renal function, e.g. those with acute kidney injury, the eGFR may not accurately reflect actual GFR. Performed By: #### D NAAB, 10682-9 #### [facility] CLIA [id number] [address] [place] [address] [place] Glucose [Mass/Vol] 98 mg/dL Normal 74-99 [facility] Comment on above: Order Comment: Speci men Type: BLOOD SPECIMEN [facility] Address: [address] [place] [address] Result Comment: The [place] Diabetes Association (ADA) provides guidance for cutoff values for fasting glucose and random glucose. The ADA defines fasting as no caloric intake for at least 8 hours. Fasting plasma glucose results between 100 to 125 mg/dL indicate increased risk for diabetes (prediabetes). Fasting plasma glucose results greater than or equal to 126 mg/dL meet the criteria for diagnosis of diabetes. In the absence of unequivocal hyperglycemia, results should be confirmed by repeat testing. In a patient with classic symptoms of hyperglycemia or hyperglycemic crisis, random plasma glucose results greater than or equal to 200 mg/dL meet the criteria for diagnosis of diabetes. Reference: Standards of Medical Care in Diabetes 2016, [place] [employer]. Diabetes Care. 2016.39(Suppl 1). Performed By: #### D NAAB, 26136-6 #### [facility] CLIA [id number] [address] [place] [address] [place] Potassium [Moles/Vol] 5.3 mmol/L High 3.7-5.1 [facility] Comment on above: Order Comment: Speci men Type: BLOOD SPECIMEN [facility] Address: [address] [place] [address] Performed By: #### D NAAB, 95205-6 #### [facility] CLIA [id number] [facility] [place] [address] [place] Protein [Mass/Vol] 6.3 g/dL Normal 6.3-8.0 [facility] Comment on above: Order Comment: Isadorai yung Type: BLOOD SPECIMEN [facility] Address: [address] [place] [address] Performed By: #### D NAAB, 22423-9 #### [facility] CLIA [id number] [address] [place] [address] [place] Sodium [Moles/Vol] 142 mmol/L Normal 136-144 [facility] Comment on above: Order Comment: Isadorai men Type: BLOOD SPECIMEN [facility] Address: [address] [place] [address] Performed By: #### D NAAB, 00852-7 #### [facility] CLIA [id number] [address] [place] [address] [place] Urea nitrogen [Mass/Vol] 28 mg/dL High 7-21 [facility] Comment on above: Order Comment: Speci men Type: BLOOD SPECIMEN [facility] Address: [address] [place] [address] Performed By: #### D NAAB, 58251-2 #### [facility] CLIA [id number] [address] [place] [address] [place] DNA ANTIBODY DS BLDon 2022 DNA ANTIBODY <12 Normal <30 [facility] Comment on above: Order Comment: Speci men Type: BLOOD SPECIMEN [facility] Address: [address] [place] [address] Result Comment: Nega tive for ds DNA Antibodies. <30 IU/mL Negative 30-74 IU/mL Equivocal >74 IU/mL Positive Performed By: #### D NAAB #### [facility] CLIA [id number] [address] [place] [address] [place] Lipid 1996 panelon 3 Cholesterol [Mass/Vol] 106 mg/dL Normal <200 [facility] Comment on above: Order Comment: Speci men Type: BLOOD SPECIMENOrdering Facility: External Submitter Address: , , Result Comment: <200 mg/dL, Desirable 200-239 mg/dL, Borderline high >239 mg/dL, High Performed By: #### 4 485-9, 4498-2 ####[facility] [id number] [place] [address] [place]#### 71913-5 ####[facility] [id number] [address] LABCLIA [id number] [place] [address] Cholesterol in HDL [Mass/Vol] 42 mg/dL Normal >39 [facility] Comment on above: Order Comment: Speci men Type: BLOOD SPECIMENOrdering Facility: External Submitter Address: , , Result Comment: 40-5 9 mg/dL, Acceptable >59 mg/dL, High: Negative risk factor for coronary heart disease <40 mg/dL, Low: Positive risk factor for coronary heart disease Performed By: #### 4 485-9, 4498-2 ####[facility]CLIA [id number] [place] [address] [place]#### 01282-0 ####[facility] [id number] [address] LABCLIA [id number] [place] [address] Cholesterol in LDL [Mass/Vol] 41 mg/dL Normal <100 [facility] Comment on above: Order Comment: Speci men Type: BLOOD SPECIMENOrdering Facility: External Submitter Address: , , Result Comment: <100 mg/dL, Optimal 100-129 mg/dL, Near optimal/above optimal 130-159 mg/dL, Borderline high 160-189 mg/dL, High >189 mg/dL, Very high Secondary prevention optimal LDL Cholesterol levels are recommended to be < 70 mg/dL Performed By: #### 4 485-9, 4498-2 ####[facility] [id number] [address] [place]#### 56231-3 ####[facility]IA [id number] [place] [id number] [facility] LABCLIA [id number] [place] [address] Cholesterol in LDL/Cholesterol in HDL [Mass ratio] 0.98 {ratio} Normal <2.54 [facility] Comment on above: Order Comment: Speci men Type: BLOOD SPECIMENOrdering Facility: External Submitter Address: , , Result Comment: Refe rence: 1. National Cholesterol Education Program ATP III Guideline At-A-Glance Quick Desk Reference: National Heart, Lung, and Blood [place]. National Institutes of Health. 2001: NIH Publication No. 01-3305. 2. An International Atherosclerosis Society position paper: global recommendations for the management of dyslipidemia: executive summary, Atherosclerosis. 2014: 232(2):410-413. Performed By: #### 4 485-9, 4498-2 ####[facility] [id number] [address] [place]#### 99691-7 ####[facility] [id number] [place] [id number] [facility]CLIA [id number] [place] [address] Cholesterol in VLDL [Mass/Vol] 23 mg/dL Normal <30 [facility] Comment on above: Order Comment: Speci men Type: BLOOD SPECIMENOrdering Facility: External Submitter Address: , , Performed By: #### 4 485-9, 4498-2 ####[facility]CLIA [id number] [place] [address] [place] [facility] [place]#### 54660-9 ####[facility] [id number] [place] [id number] [facility]CLIA [id number] [place] [address] Cholesterol non HDL [Mass/Vol] 64 mg/dL Normal <130 [facility] Comment on above: Order Comment: Speci men Type: BLOOD SPECIMENOrdering Facility: External Submitter Address: , , Result Comment: <130 mg/dL, Optimal 130-159 mg/dL, Near optimal/above optimal 160-189 mg/dL, Borderline high 190-219 mg/dL, High >219 mg/dL, Very high Secondary prevention optimal non HDL Cholesterol levels are recommended to be <100 mg/dL Performed By: #### 4 485-9, 4498-2 ####[facility] [id number] [place] [id number] [place]#### 57851-2 ####[facility] [id number] [place] [id number] [facility]IA [id number] [place] [address] Cholesterol.total/Chol esterol in HDL [Mass ratio] 2.52 {ratio} Normal <5.10 [facility] Comment on above: Order Comment: Speci men Type: BLOOD SPECIMENOrdering Facility: External Submitter Address: , , Performed By: #### 4 485-9, 4498-2 ####[facility] [id number] [place] [address] [place]#### 99702-3 ####[facility] [id number] [place] [id number] [facility]CLIA [id number] [place] [address] FASTING TIME 12 hrs Normal [facility] Comment on above: Order Comment: Speci men Type: BLOOD SPECIMENOrdering Facility: External Submitter Address: , , Performed By: #### 4 485-9, 4498-2 ####[facility] [id number] [place] [id number] [place]#### 92068-7 ####[facility] [id number] [place] [id number] [facility]CLIA [id number] [place] [address] Triglyceride [Mass/Vol] 116 mg/dL Normal <150 [facility] Comment on above: Order Comment: Speci men Type: BLOOD SPECIMENOrdering Facility: External Submitter Address: , , Result Comment: <150 mg/dL, Normal 150-199 mg/dL, Borderline high 200-499 mg/dL, High >499 mg/dL, Very high Performed By: #### 4 485-9, 4498-2 ####[facility] [id number] [address]#### 53528-0 ####[facility] [id number] [address] LABCLIA [id number] [place] [address] Magnesium SerPl-ncon 04-22 Magnesium [Mass/Vol] 1.8 mg/dL Normal 1.7-2.3 [facility] Comment on above: Order Comment: Speci men Type: BLOOD SPECIMEN [facility] Address: [address] [place] [address] Performed By: #### [place] NAAB, 06474-5 #### [facility] CLIA [id number] [address] [place] Prot/Creat Uron 04-22-2023 Protein/Creatinine (U) [Mass ratio] 0.19 mg/mg High <0.15 [facility] Comment on above: Order Comment: Speci men Type: BLOOD SPECIMEN [facility] [facility] Address: [address] [place] [address] Result Comment: Adul t Proteinuria Categories: <0.15 mg/mg is considered normal to mildly increased 0.15 - 0.50 mg/mg is considered moderately increased >0.50 mg/mg is considered severely increased KDIGO. (2013). KDIGO 2012 Clinical Practice Guideline for the Evaluation and Management of Chronic Kidney Disease. Official Journal of the International Society of Nephrology, 3(1), 1-150. Performed By: #### Neville NAAB, 53600-3 #### [facility] CLIA [id number] [address] [place] Protein/Creatinine (U) [Mass ratio]on 04-22-2023 Creatinine (U) [Mass/Vol] 48.0 mg/dL Normal 20.0-300.0 [facility] Comment on above: Order Comment: Speci men Type: BLOOD SPECIMEN Ordering Facility: [facility] Address: [address] [place] [address] Performed By: #### D NAAB, 51793-9 #### [facility] CLIA [id number] [facility] [place] [address] [place] Protein (U) [Mass/Vol] 9 mg/dL Normal 0-20 [facility] Comment on above: Order Comment: Speci men Type: BLOOD SPECIMEN Ordering Facility: [facility] Address: [address] [place] [address] Performed By: #### D NAAB, 36600-6 #### [facility] CLIA [id number] [address] [place] [address] [place] Urinalysis complete panel (U )on 04-22-2023 Bilirubin Ql (U) Negative Normal Negative [facility] Comment on above: Order Comment: Speci men Type: BLOOD SPECIMEN Ordering Facility: [facility] Address: [address] [place], [place] [id number] Performed By: #### 1 989-3 #### [facility] CLIA [id number] [address] [place] [address] [place] Clarity (Unsp spec) Clear Normal Clear [facility] Comment on above: Order Comment: Speci men Type: BLOOD SPECIMEN Ordering Facility: [facility] Address: [address] [place], [place] [id number] Performed By: #### 1 989-3 #### [facility] CLIA [id number] [address] [place] [address] [place] Color (U) Light Yellow Normal Yellow [facility] Comment on above: Order Comment: Speci men Type: BLOOD SPECIMEN Ordering Facility: [facility] Address: [address] [place] [address] Performed By: #### 1 989-3 #### [facility] CLIA [id number] [address] [place] Glucose Test strip (U) [Mass/Vol] Negative Normal Trace, Negative [facility] Comment on above: Order Comment: Speci men Type: BLOOD SPECIMEN Ordering Facility: [facility] Address: [address] Performed By: #### 1 989-3 #### [facility] CLIA [id number] [address] [place] [address] [place] Hemoglobin Ql (U) Negative Normal Negative, Trace [facility] Comment on above: Order Comment: Speci men Type: BLOOD SPECIMEN Ordering Facility: [facility] Address: [address] Performed By: #### 1 989-3 #### [facility] CLIA [id number] [address] [place] [address] [place] Ketones Ql (U) Negative Normal Trace, Negative [facility] Comment on above: Order Comment: Speci men Type: BLOOD SPECIMEN Ordering Facility: [facility] Address: [address] Performed By: #### 1 989-3 #### [facility] CLIA [id number] [address] [place] [address] [place] Leukocyte esterase Test strip Ql (U) 25 Bailey/uL Normal Negative, 25 Bailey/uL [facility] Comment on above: Order Comment: Speci men Type: BLOOD SPECIMEN Ordering Facility: [facility] Address: [address] [place] [address] Performed By: #### 1 989-3 #### [facility] CLIA [id number] [address] [place] [address] [place] Nitrite Ql (U) Negative Normal Negative [facility] Comment on above: Order Comment: Speci men Type: BLOOD SPECIMEN Ordering Facility: [facility] Address: [address] Performed By: #### 1 989-3 #### [facility] CLIA [id number] [address] [place] [address] [place] pH (U) 6.0 [pH] Normal 5.0-8.0 [facility] Comment on above: Order Comment: Speci men Type: BLOOD SPECIMEN Ordering Facility: [facility] Address: [address] [place] [address] Performed By: #### 1 989-3 #### [facility] CLIA [id number] [address] [place] [address] [place] Protein (U) [Mass/Vol] Negative Normal Trace , Negative [facility] Comment on above: Order Comment: Speci men Type: BLOOD SPECIMEN Ordering Facility: [facility] Address: [address] [place], [place] [id number] Performed By: #### 1 989-3 #### [facility] CLIA [id number] [address] [place] [address] [place] RBC LM.HPF (Urine sed) [#/Area] 0-3 /HPF Normal 0-3 /HPF [facility] Comment on above: Order Comment: Speci men Type: BLOOD SPECIMEN Ordering Facility: [facility] Address: [address] [place], [place] [id number] Performed By: #### 1 989-3 #### [facility] CLIA [id number] [address] [place] [address] [place] Specific gravity (U) [Rel density] 1.012 Normal 1.005-1.030 [facility] Comment on above: Order Comment: Speci men Type: BLOOD SPECIMEN Ordering Facility: [facility] Address: [address] [place], [place] [id number] Performed By: #### 1 989-3 #### [facility] CLIA [id number] [address] [place] [address] [place] Urobilinogen Ql (U) Negative Normal Negative [facility] Comment on above: Order Comment: Speci men Type: BLOOD SPECIMEN Ordering Facility: [facility] Address: [address] [place] [address] Performed By: #### 1 989-3 #### [facility] CLIA [id number] [address] [place] [address] [place] WBC LM.HPF (Urine sed) [#/Area] 0-5 /HPF Normal 0-5 /HPF [facility] Comment on above: Order Comment: Speci men Type: BLOOD SPECIMEN Ordering Facility: [facility] Address: [address] [place] [address] Performed By: #### 1 989-3 #### [facility] CLIA [id number] [address] [place] [address] [place] CNOVon 04-15-2023 CNOV Office Visit (EDWIN ) ----- JESUS WOLF ([id number]) 1955 F Date Time Provider Department 04/15/23 9:20 AM DIONE REINOSO During your visit today, we recorded the following information about you: Pulse Blood pressure Weight 70/minute 142/85 115.2 kg Dione Reinoso MD 04/15/2023 9:13 AM Signed Continue mesalamine Continue canasa suppositories (can go down to as needed eventually) Continue protonix Continue colestipol Dione Reinoso MD 04/15/2023 10:14 AM Signed FOLLOW UP OFFICE VISIT REASON FOR VISIT: follow up UC HPI: Jesus Wolf is a 68 year old female who presents for follow up UC. After colonoscopy 2 weeks ago, she was in the ER several times with migraine headaches. She was in the [facility] on vacation. It is likely these were due to dehydration from the procedure with bowel prep and from the altitude. She went to the ER and received fluids and magnesium. She has since been doing better. She still having 4-5 bowel movements a day of type IV-V stool. She denies any melena, hematochezia or rectal bleeding. She does describe urgency and tenesmus. Her GERD is overall under good control. Past Clinical Work-Up: Last office visit 04/03/2021: ASSESSMENT AND PLAN 65-year-old female with past medical history of SLE on mycophenolate and Plaquenil, hypertension, anxiety, A. fib on Eliquis and ulcerative colitis on mesalamine therapy presenting for follow up of ulcerative colitis, pancreatitis and IPMN. Colonoscopy 07/2020 with Bunn 1 pancolitis however biopsies were normal. She continues on the mesalamine maximum dose. She continues to have diarrhea particularly after eating fried greasy foods and sauces for which we will start colestipol should there be a component of bile acid diarrhea. Dr. Arredondo has been following her IPMN and is planning on repeating her right upper quadrant ultrasound as there was concern for gallstone pancreatitis. -Ultrasound gallbladder -Follow up after ultrasound with Dr. Arredondo -If still with epigastric pressure pending ultrasound result and Dr. arredondo follow up, we can consider endoscopy -Continue lialda -Continue omeprazole -Imodium as needed -Colestipol twice daily RTC 4 months Colon 04/02/2023: - Hemorrhoids found on perianal exam. - The examined portion of the ileum was normal. Biopsied. - Mild (Bunn Score 1) ulcerative colitis. Biopsied. - Inactive (Bunn Score 0) ulcerative colitis. - Diverticulosis in the sigmoid colon. - Non-bleeding internal hemorrhoids. Path: A. Ileum, biopsy: - Small intestinal mucosa with no diagnostic abnormality. - Negative for active and granulomatous inflammation. - Negative for dysplasia. B. Colon, right, biopsy: - Colonic mucosa with no diagnostic abnormality. - Negative for active and granulomatous inflammation. - Negative for dysplasia. C. Colon, transverse, biopsy: - Colonic mucosa with no diagnostic abnormality. - Negative for active and granulomatous inflammation. - Negative for dysplasia. D. Colon, left, biopsy: - Colonic mucosa with no diagnostic abnormality. - Negative for active and granulomatous inflammation. - Negative for dysplasia. E. Rectum, biopsy: - Focal active colitis. - Negative for granulomatous inflammation and dysplasia. EGD 09/12/2021: - Normal mucosa was found in the entire esophagus. - Z-line regular, 40 cm from the incisors. - Gastritis. Biopsied. - Normal duodenal bulb and second portion of the duodenum. Biopsied. Path: 1. Duodenum, biopsy (A) - Duodenal mucosa with no significant diagnostic alteration. 2. Stomach, biopsy (B) - Chronic antral and fundic gastritis. - Immunohistochemistry for Helicobacter pylori will be reported in an addendum. Colon 09/12/2021: - Hemorrhoids found on perianal exam. - Mild (Bunn Score 1) ulcerative colitis, worsened since the last examination. Biopsied and Clips were placed. - Diverticulosis in the sigmoid colon. - Non-bleeding internal hemorrhoids. Path: 3. Colon, right, transverse, left, and rectum, biopsy (C-F) - Colonic mucosa with no significant diagnostic alteration. US RUQ 04/10/2021: IMPRESSION: 1. No gallstones or biliary dilatation. 2. Coarse heterogeneous liver suspicious for steatosis and/or diffuse hepatocellular disease. MRI PANC/JEANIE WO/W IVCON 07/04/20 IMPRESSION: Interval resolution of hyperenhancing area in the proximal body of the pancreas, likely related to previous pancreatitis. 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 Another short-term follow-up study is recommended to assess the long-term stability of the findings. Component Latest Ref Rng AND Units 02/09/2023 CALPROTECTIN, FECAL QUANTITATIVE <50 ug/g 335 (H) CALPROTECTIN, FECAL INTERP N (more content not included)... Normal [facility] HISTORY PHYSICALon 3 HISTORY PHYSICAL HNO ID: [id number] Author: Dione Reinoso MD Service: ? Author Type: Physician Type: HANDP Filed: 04/15/2023 10:14 AM Note Text: FOLLOW UP OFFICE VISIT REASON FOR VISIT: follow up UC HPI: Jesus Wolf is a 68 year old female who presents for follow up UC. After colonoscopy 2 weeks ago, she was in the ER several times with migraine headaches. She was in the [facility] on vacation. It is likely these were due to dehydration from the procedure with bowel prep and from the altitude. She went to the ER and received fluids and magnesium. She has since been doing better. She still having 4-5 bowel movements a day of type IV-V stool. She denies any melena, hematochezia or rectal bleeding. She does describe urgency and tenesmus. Her GERD is overall under good control. Past Clinical Work-Up: Last office visit 04/03/2021: ASSESSMENT AND PLAN 65-year-old female with past medical history of SLE on mycophenolate and Plaquenil, hypertension, anxiety, A. fib on Eliquis and ulcerative colitis on mesalamine therapy presenting for follow up of ulcerative colitis, pancreatitis and IPMN. Colonoscopy 07/2020 with Bunn 1 pancolitis however biopsies were normal. She continues on the mesalamine maximum dose. She continues to have diarrhea particularly after eating fried greasy foods and sauces for which we will start colestipol should there be a component of bile acid diarrhea. Dr. Arredondo has been following her IPMN and is planning on repeating her right upper quadrant ultrasound as there was concern for gallstone pancreatitis. -Ultrasound gallbladder -Follow up after ultrasound with Dr. Arredondo -If still with epigastric pressure pending ultrasound result and Dr. arredondo follow up, we can consider endoscopy -Continue lialda -Continue omeprazole -Imodium as needed -Colestipol twice daily RTC 4 months Colon 04/02/2023: - Hemorrhoids found on perianal exam. - The examined portion of the ileum was normal. Biopsied. - Mild (Bunn Score 1) ulcerative colitis. Biopsied. - Inactive (Bunn Score 0) ulcerative colitis. - Diverticulosis in the sigmoid colon. - Non-bleeding internal hemorrhoids. Path: A. Ileum, biopsy: - Small intestinal mucosa with no diagnostic abnormality. - Negative for active and granulomatous inflammation. - Negative for dysplasia. B. Colon, right, biopsy: - Colonic mucosa with no diagnostic abnormality. - Negative for active and granulomatous inflammation. - Negative for dysplasia. C. Colon, transverse, biopsy: - Colonic mucosa with no diagnostic abnormality. - Negative for active and granulomatous inflammation. - Negative for dysplasia. D. Colon, left, biopsy: - Colonic mucosa with no diagnostic abnormality. - Negative for active and granulomatous inflammation. - Negative for dysplasia. E. Rectum, biopsy: - Focal active colitis. - Negative for granulomatous inflammation and dysplasia. EGD 09/12/2021: - Normal mucosa was found in the entire esophagus. - Z-line regular, 40 cm from the incisors. - Gastritis. Biopsied. - Normal duodenal bulb and second portion of the duodenum. Biopsied. Path: 1. Duodenum, biopsy (A) - Duodenal mucosa with no significant diagnostic alteration. 2. Stomach, biopsy (B) - Chronic antral and fundic gastritis. - Immunohistochemistry for Helicobacter pylori will be reported in an addendum. Colon 09/12/2021: - Hemorrhoids found on perianal exam. - Mild (Bunn Score 1) ulcerative colitis, worsened since the last examination. Biopsied and Clips were placed. - Diverticulosis in the sigmoid colon. - Non-bleeding internal hemorrhoids. Path: 3. Colon, right, transverse, left, and rectum, biopsy (C-F) - Colonic mucosa with no significant diagnostic alteration. US RUQ 04/10/2021: IMPRESSION: 1. No gallstones or biliary dilatation. 2. Coarse heterogeneous liver suspicious for steatosis and/or diffuse hepatocellular disease. MRI PANC/JEANIE WO/W IVCON 07/04/20 IMPRESSION: Interval resolution of hyperenhancing area in the proximal body of the pancreas, likely related to previous pancreatitis. 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 Another short-term follow-up study is recommended to assess the long-term stability of the findings. Component Latest Ref Rng AND Units 02/09/2023 CALPROTECTIN, FECAL QUANTITATIVE <50 ug/g 335 (H) CALPROTECTIN, FECAL INTERP Normal Elevated (A) Component Latest Ref Rng AND Units 12/25/2022 Shigella spp./Enteroinvasive E.coli DNA Not Detected Not detected Campylobacter jejuni/coli DNA Not Detected Not detected Shiga toxin-producing gene(s) Not Detected Not detected Salmonella spp. DNA Not Detected Not detected Cryptosporidium Antigen by EIA Negative Negative for Cryptosporidium by EIA. Giardia Antigen by EIA Negative Negative for Giard (more content not included)... Normal [facility] CNPNon 04-08-2023 CNPN Telephone (EDWIN) ----- JESUS WOLF ([id number]) 1955 F Date Time Provider Department 04/08/23 DIONE REINOSO During your visit today, we recorded the following information about you: Bang Spears RN 04/08/2023 11:44 AM Signed ----- Message from Dione Reinoso MD sent at 04/06/2023 11:12 AM EDT ----- Normal ileal biopsies and normal colon biopsies except for the rectum, continue Lialda, recommend rectal topical therapy which she prefers suppository or enema? Bang Spears RN 04/08/2023 11:53 AM Signed Spoke to the patient regarding results and recommendations. Verbalized understanding. With much discussion, pt chose suppository. Pt also states she has been in the ER 3 times since procedure with horrible migraine . I advise her that migraines could have been triggered by dehydration. When at the ER last time, her magnesium was low. Pt following up with PCP. Dr. Reinoso, please review the order and sign Thank you, Bang Spears RN Allergies As of Date: 04/08/2023 Noted Allergy Reaction DOFETILIDE 03/15/2020 14 - Other: See Comments 10 - Anaphylaxis Comments: V-tach IODINATED CONTRAST MEDIA 08/28/2010 14 - Other: See Comments Comments: (Deep seafood) hot flashes, sweating. Other reaction(s): over heated/nausea SULFA (SULFONAMIDE ANTIBIOTICS) 02/21/2010 11 - Vomiting Comments: total body swelling and kidney shut down, body aches and rash CONTRAST DYE 08/28/2010 14 - Other: See Comments Comments: (Deep seafood) hot flashes, sweating. IODINE 02/04/2023 14 - Other: See Comments Comments: Hot flashes and sweating CODEINE 02/21/2010 14 - Other: See Comments Comments: severe headaches COMPAZINE (PROCHLORPERAZINE EDISY*02/21/2010 14 - Other: See Comments Comments: loss control of left side of face TETNUS (TETANUS VACCINES AND TOXO*02/21/2010 14 - Other: See Comments Comments: red spot in area of shot Date Reviewed: 04/02/2023 Reviewed by: Katelynn Jules RN - Fully Assessed Reason for Visit: Results [95] Cmt: Colon Order(s):mesalamine (CANASA) 1,000 mg suppository1 Suppository by RECTAL route daily at bedtime.Disp: 30 SuppositoryRfl: 3 Prescriptions as of 04/08/2023 - mesalamine (CANASA) 1,000 mg suppository 1 Suppository by RECTAL route daily at bedtime. - Mesalamine (LIALDA) 1.2 gram EC tablet take 4 tablets by mouth once daily - pantoprazole DR (PROTONIX) 40 mg tablet take 1 tablet by mouth twice a day - hydrOXYchloroQUINE (PLAQUENIL) 200 mg tablet take 1 tablet by mouth twice a day with food - cephALEXin (KEFLEX) 500 mg capsule Take 1 capsule by mouth four times daily. - metoprolol succinate ER (TOPROL XL) 50 mg 24 hr tablet TAKE 1 TABLET BY MOUTH IN THE MORNING AND 2 TABLETS BY MOUTH IN THE EVENING - diclofenac (VOLTAREN) 1 % topical gel Apply 2 g to affected area four times daily. - colestipol (COLESTID) 1 gram tablet TAKE 2 TABLETS BY MOUTH TWICE A DAY - ELIQUIS 5 mg tab(s) Take 5 mg by mouth twice daily. - cholestyramine-sucrose (QUESTRAN) 4 gram powder Take 4 g by mouth three times daily with meals. - ferrous sulfate (IRON) 325 mg (65 mg iron) tablet Take 1 tablet by mouth once daily. - alendronate (FOSAMAX) 70 mg tablet Take 1 tablet by mouth one time a week. In the morning with a full glass of water, on an empty stomach. Do not take anything else by mouth or lie down for the next 30 minutes. - acetaminophen (TYLENOL) 500 mg tablet Take 1 tablet by mouth every 4 hours as needed for pain. - xilzmzi-cpixqnmaa-bwkrcgl D3 500 mg-5 mcg (200 unit) per tablet Take 1 tablet by mouth three times daily. - MV with Cwn-Xgmhcbhu-Dvurez (CENTRUM SILVER) 0.4 mg-300 mcg- 250 mcg tab Take 1 tablet by mouth once daily. - celecoxib (CELEBREX) 200 mg capsule Take 200 mg by mouth twice daily. - sucralfate (CARAFATE) 100 mg/mL suspension Take 10 mL by mouth four times daily. - atorvastatin (LIPITOR) 40 mg tablet Take 1 tablet by mouth once daily. - Bifidobacterium infantis (ALIGN ORAL) Take by mouth once daily. - belimumab (BENLYSTA INTRAVENOUS) Inject intravenously. Patient reports she receives infusion every 3 months - venlafaxine ER (EFFEXOR XR) 150 mg 24 hr capsule Take 1 capsule by mouth once daily. - levothyroxine (SYNTHROID) 75 mcg tablet Take 75 mcg by mouth once daily. - furosemide (LASIX) 40 mg tablet Take 40 mg by mouth once daily. - busPIRone (BUSPAR) 10 mg tablet Take 10 mg by mouth daily at bedtime. - spironolactone (ALDACTONE) 50 mg tablet Take 50 mg by mouth once daily. - Cholecalciferol, Vitamin D3, 2,000 unit cap Take by mouth once daily. - vitamin b complex(B COMPLEX TAB) one daily - multivitamins w-minerals/lut(CENTRUM SILVER TAB) Take one(1) tablet daily. Facility-Administered Medications as of 04/08/2023 - perflutren lipid microspheres 1.3 mL in NaCl (PF) 0.9% 10 mL injection (DEFINITY) - sodium chlori (more content not included)... Normal [facility] ANES POSTPROC EVALon 023 ANES POSTPROC EVAL HNO ID: [id number] Author: Radha Hermosillo MD Service: Anesthesiology Author Type: Physician Type: Anesthesia Postprocedure Evaluation Filed: 04/02/2023 8:21 AM Note Text: POST ANESTHESIA EVALUATION NOTE : 1955 Procedure Summary Date: 04/02/23 Room / Location: Ambulatory Surgery Anesthesia Start: 739 Anesthesia Stop: 808 Procedure: COLONOSCOPY DIAGNOSTIC Diagnosis: IBD (inflammatory bowel disease) (Clostridium diff diarrhea) Scheduled Providers: Dione Reinoso MD; Jerri Martinez APRN.ELECTRONIC SYSTEMS TECHNICIAN; Radha Hermosillo MD Responsible Provider: Radha Hermosillo MD Anesthesia Type: MAC ASA Status: 3 Anesthesia Type: MAC Last Vitals Vitals Value Taken Time BP 125/58 04/02/23 0810 Temp 37.7 ?C (99.8 ?F) 04/02/23 0810 Pulse 78 04/02/23 0810 Resp 16 04/02/23 0810 SpO2 98 % 04/02/23 0810 Post Anesthesia Patient Status Patient Evaluation: PACU. PACU/ICU Patient Condition: stable. Anticipated Disposition: phase 2 then home. Neurological Status: aware and responsive. Pulmonary Status: breathing comfortably on room air Airway Control: returned to baseline unsupported. Cardiovascular Status: stable. Pain Management: clinically adequate - multimodal analgesia pain management approach Postoperative Hydration: acceptable. Intraoperative Events: no significant anesthesia events Post Operative Nausea/Vomiting Status: no significant post operative nausea or vomiting Recommendation: continue current plan of care. Anesthesia Observations No Documentation SIGNATURE: Radha Hermosillo MD PATIENT NAME: Jesus Wolf DATE: April 02, 2023 TIME: 8:21 AM CSN: [id number] Normal [facility] ANES PRE-OPon 04-02-2023 ANES PRE-OP HNO ID: [id number] Author: Radha Hermosillo MD Service: Anesthesiology Author Type: Physician Type: Anesthesia Preprocedure Evaluation Filed: 04/02/2023 7:18 AM Note Text: ANESTHESIOLOGY DAY OF SURGERY NOTE : 1955 Procedure Information Date/Time: 04/02/23 0730 Scheduled providers: Dione Reinoso MD; Jerri Martinez APRN.ELECTRONIC SYSTEMS TECHNICIAN; Radha Hermosillo MD Procedure: COLONOSCOPY DIAGNOSTIC Location: Ambulatory Surgery Estimated body mass index is 41.16 kg/m? as calculated from the following: Height as of 07/31/22: 167.6 cm (5' 6 ). Weight as of 03/19/23: 115.7 kg (255 lb). Most recent hematocrit and potassium results: Hematocrit 41.8 02/04/2023 Potassium 5.0 02/04/2023 Eliquis 5 days ago MONI not on CPAP Relevant Problems ANESTHESIA (+) Sleep apnea CARDIO (+) Atrial fibrillation (HCC) (+) Chronic congestive heart failure (HCC) (+) Essential hypertension (+) Thoracic ascending aortic aneurysm (HCC) ENDO (+) Hypothyroidism -RENAL (+) Membranous glomerulonephritis PULMONARY (+) Sleep apnea Other (+) Other synovitis and tenosynovitis, unspecified ankle and foot (+) Synovitis of foot (+) Synovitis of left foot (+) Synovitis of right foot I - PHYSICAL EVALUATION AIRWAY Patient intubated: No. Tracheostomy tube not present Mallampati: III. TM distance: >3 FB. Neck ROM: full ROM without neurological symptoms. Mouth opening: adequate. Short neck: no. Thick neck: yes DENTAL Dental findings: teeth intact. Additional exam findings: no II - ANESTHESIA PLAN ASA Score: 3 Anesthetic Plan: MAC The patient is not a current smoker. NPO Status: adequate Beta Girish Monitoring Plan Monitoring plan: standard ASA. Post Procedure Analgesic Plan Postoperative analgesic plan: multimodal analgesia. Informed Consent Anesthetic risks, benefits, alternatives, personnel and consent discussed: yes. Patient / Responsible Alliance Party agrees to proceed: yes Patient / Surrogate agrees to blood products: Yes No vitals data found for the desired time range. Outpatient Medications as of 04/02/2023 Medication Sig - Mesalamine (LIALDA) 1.2 gram EC tablet take 4 tablets by mouth once daily - pantoprazole DR (PROTONIX) 40 mg tablet take 1 tablet by mouth twice a day - hydrOXYchloroQUINE (PLAQUENIL) 200 mg tablet take 1 tablet by mouth twice a day with food - metoprolol succinate ER (TOPROL XL) 50 mg 24 hr tablet TAKE 1 TABLET BY MOUTH IN THE MORNING AND 2 TABLETS BY MOUTH IN THE EVENING - diclofenac (VOLTAREN) 1 % topical gel Apply 2 g to affected area four times daily. - ELIQUIS 5 mg tab(s) Take 5 mg by mouth twice daily. - cholestyramine-sucrose (QUESTRAN) 4 gram powder Take 4 g by mouth three times daily with meals. - ferrous sulfate (IRON) 325 mg (65 mg iron) tablet Take 1 tablet by mouth once daily. - alendronate (FOSAMAX) 70 mg tablet Take 1 tablet by mouth one time a week. In the morning with a full glass of water, on an empty stomach. Do not take anything else by mouth or lie down for the next 30 minutes. - acetaminophen (TYLENOL) 500 mg tablet Take 1 tablet by mouth every 4 hours as needed for pain. - jmzdxqf-bcndvozuh-naennvq D3 500 mg-5 mcg (200 unit) per tablet Take 1 tablet by mouth three times daily. - MV with Qbm-Sunqxhnp-Ybskao (CENTRUM SILVER) 0.4 mg-300 mcg- 250 mcg tab Take 1 tablet by mouth once daily. - sucralfate (CARAFATE) 100 mg/mL suspension Take 10 mL by mouth four times daily. - atorvastatin (LIPITOR) 40 mg tablet Take 1 tablet by mouth once daily. (Patient taking differently: Take 40 mg by mouth twice daily.) - Bifidobacterium infantis (ALIGN ORAL) Take by mouth once daily. - belimumab (BENLYSTA INTRAVENOUS) Inject intravenously. Patient reports she receives infusion every 3 months - venlafaxine ER (EFFEXOR XR) 150 mg 24 hr capsule Take 1 capsule by mouth once daily. - levothyroxine (SYNTHROID) 75 mcg tablet Take 75 mcg by mouth once daily. - furosemide (LASIX) 40 mg tablet Take 40 mg by mouth once daily. - busPIRone (BUSPAR) 10 mg tablet Take 10 mg by mouth daily at bedtime. - spironolactone (ALDACTONE) 50 mg tablet Take 50 mg by mouth once daily. - Cholecalciferol, Vitamin D3, 2,000 unit cap Take by mouth once daily. - vitamin b complex(B COMPLEX TAB) one daily - multivitamins w-minerals/lut(CENTRUM SILVER TAB) Take one(1) tablet daily. - cephALEXin (KEFLEX) 500 mg capsule Take 1 capsule by mouth four times daily. - colestipol (COLESTID) 1 gram tablet TAKE 2 TABLETS BY MOUTH TWICE A DAY - celecoxib (CELEBREX) 200 mg capsule Take 200 mg by mouth twice daily. Facility-Administered Medications as of 04/02/2023 Medication Dose Route Frequency - lidocaine (PF) 10 mg/mL (1 %) 1-2 mg injection (XYLOCAINE) 0.1-0.2 mL INTRADERMAL PRN - NaCl 0.9% iv infusion 30 mL/hr INTRAVENOUS CONTINUOUS - perflutren lipid microspheres 1.3 mL in NaCl (PF) 0.9% 10 mL injection (DEFINITY) INTRAVENOUS DIRECTED PRN - sodi (more content not included)... Normal [facility] COLONOSCOPY DIAGNOSTICon [facility] Colonoscopyon 04-02-2023 Colonoscopy [place] [facility] Gastrointestinal Endoscopy Patient Name: Jesus Wolf Procedure Date: 04/02/2023 7:24 AM Date of : 1955 Admit Type: Outpatient Age: 68 Gender: Female Note Status: Finalized Procedure: Colonoscopy Indications: Clostridium difficile diarrhea, Follow-up of ulcerative colitis Providers: Dione Reinoso MD Patient Profile: This is a 68 year old female. Refer to note in patient chart for documentation of history and physical. Last Colonoscopy: within the past 3 years. Referring Physician: Dione Reinoso MD (Referring MD) Medicines: Monitored Anesthesia Care Complications: No immediate complications. Requesting Provider: Procedure: Pre-Anesthesia Assessment: - The risks and benefits of the procedure and the sedation options and risks were discussed with the patient. All questions were answered and informed consent was obtained. - Patient identification and proposed procedure were verified prior to the procedure by the physician, the nurse, the stiff straw hat washer and the radiation therapy technician. The procedure was verified in the procedure room. - ASA Grade Assessment: II - A patient with mild systemic disease. After I obtained informed consent, the scope was passed under direct vision. Throughout the procedure, the patient's blood pressure, pulse, and oxygen saturations were monitored continuously. The Colonoscope was introduced through the anus and advanced to the terminal ileum, with identification of the appendiceal orifice and IC valve. The colonoscopy was performed without difficulty. The patient tolerated the procedure well. The quality of the bowel preparation was good. The terminal ileum, ileocecal valve, appendiceal orifice, and rectum were photographed. Moderate Sedation: MAC anesthesia was administered by the anesthesia team. Findings: Hemorrhoids were found on perianal exam. The terminal ileum appeared normal. Biopsies were taken with a cold forceps for histology. Inflammation was found as patches surrounded by normal mucosa in the descending colon, in the ascending colon and at the cecum. This was graded as Bunn Score 1 (mild, with erythema, decreased vascular pattern, mild friability). Biopsies were taken with a cold forceps for histology. Inflammation was not found based on the endoscopic appearance of the mucosa in the transverse, sigmoid, colon and rectum. This was graded as Bunn Score 0 (normal or inactive disease). Biopsies were taken with a cold forceps for histology. Multiple small and large-mouthed diverticula were found in the sigmoid colon. Non-bleeding internal hemorrhoids were found during retroflexion. The hemorrhoids were small. Impression: - Hemorrhoids found on perianal exam. - The examined portion of the ileum was normal. Biopsied. - Mild (Bunn Score 1) ulcerative colitis. Biopsied. - Inactive (Bunn Score 0) ulcerative colitis. - Diverticulosis in the sigmoid colon. - Non-bleeding internal hemorrhoids. Recommendation: - Discharge patient to home. - Resume previous diet. - Continue present medications. - Await pathology results. - Patient has a contact number available for emergencies. The signs and symptoms of potential delayed complications were discussed with the patient. Return to normal activities tomorrow. Written discharge instructions were provided to the patient. - Repeat colonoscopy is recommended. The colonoscopy date will be determined after pathology results from today's exam become available for review. Procedure Code(s): --- Professional --- 65422, Colonoscopy, flexible; with biopsy, single or multiple Diagnosis Code(s): --- Professional --- K64.8, Other hemorrhoids K51.90, Ulcerative colitis, unspecified, without complications A04.72, Enterocolitis due to Clostridium difficile, not specified as recurrent K57.30, Diverticulosis of large intestine without perforation or abscess without bleeding CPT copyright 202 [employer]. All rights reserved. The codes documented in this report are preliminary and upon dairy manufacturing technologist review may be revised to meet current compliance requirements. Attending Participation: I personally performed the entire procedure. Scope In: 7:48:57 AM Scope Out: 8:05:07 AM MD Dione Orozco MD 04/02/2023 8:11:27 AM This report has been signed electronically by Dione Reinoso MD Number of Addenda: 0 Note Initiated On: 04/02/2023 7:24 AM Estimated Blood Loss: Estimated blood loss was minimal. Normal [facility] HISTORY PHYSICALon HISTORY PHYSICAL HNO ID: [id number] Author: Dione Reinoso MD Service: Gastroenterology Author Type: Physician Type: HANDP Filed: 04/02/2023 7:39 AM Note Text: Pre procedure HANDP HPI 68 year old year old female presenting for Colonoscopy for UC and recent c diff. PAST MEDICAL HISTORY Diagnosis Date Arrhythmia Atrial fibrillation (HCC) on coumadin Herniated intervertebral disk HTN (hypertension) Hyperlipemia Kidney disease MONI (obstructive sleep apnea) no longer using CPAP since 60 lb weight loss Other acute pancreatitis with uninfected necrosis SLE (systemic lupus erythematosus) (HCC) Sleep apnea 07/29/2012 PHYSICAL EXAM BP 145/70 Temp 36.3 ?C (97.3 ?F) (Temporal) Resp 18 LMP 07/17/2011 (Within Years) SpO2 96% General appearance: Well appearing, alert, in no acute distress, well-hydrated, well nourished. Skin: Skin color, texture, turgor normal, no suspicious rashes or lesions Head: Normocephalic, no masses, lesions, tenderness or abnormalities Eyes: Anicteric sclera. Pupils are equally round and reactive to light. Extraocular movements are intact. Ears: External ears normal, canals clear Nose/Sinuses: Nares normal, septum midline, mucosa normal, no drainage or sinus tenderness Oropharynx: Lips, mucosa, and tongue normal, teeth and gums normal, oropharynx normal Neck: Supple, no adenopathy; thyroid symmetric, normal size, no bruits Back: Normal exam Lungs: Lungs clear to auscultation. No wheezing, rhonchi, rales. Heart: RRR without murmur, gallop, or rubs. No ectopy Abdomen: Normal abdominal exam, Abdomen soft, non-tender. Bowel sounds normal. No masses, organomegaly ASSESSMENT / PLAN 1. Proceed with Colonoscopy SIGNATURE: Dione Reinoso MD PATIENT NAME: Jesus Wolf DATE: April 02, 2023 TIME: 7:38 AM Normal [facility] SURGICAL PATHOLOGYon 023 CASE REPORT Normal [facility] Comment on above: Order Comment: Speci men Type: TISSUE SPECIMENOrdering Facility: [facility] Address: [address] [place] [id number] Result Comment: Surg [facility] Pathology Report Case: [id number] Authorizing Provider: Dione Reinoso MD Collected: 04/02/2023 07:59 AM Ordering Location: Ambulatory Surgery Received: 04/02/2023 01:02 PM Pathologist: Denzel Alonso MD Specimens: A) - ILEUM BIOPSY, terminal ileum biopsy, evaluate UC B) - COLON BIOPSY, right colon biopsy, evaluate UC C) - TRANSVERSE COLON BIOPSY, evaluate UC D) - COLON LEFT BIOPSY, evaluate UC E) - RECTAL BIOPSY, evaluate UC Performed By: #### S ####[facility] LABCLIA [id number] [address] [place] FINAL DIAGNOSIS Normal [facility] Comment on above: Order Comment: Speci men Type: TISSUE SPECIMENOrdering Facility: [facility] Address: [address] [address] Result Comment: A. I leum, biopsy: - Small intestinal mucosa with no diagnostic abnormality. - Negative for active and granulomatous inflammation. - Negative for dysplasia. B. Colon, right, biopsy: - Colonic mucosa with no diagnostic abnormality. - Negative for active and granulomatous inflammation. - Negative for dysplasia. C. Colon, transverse, biopsy: - Colonic mucosa with no diagnostic abnormality. - Negative for active and granulomatous inflammation. - Negative for dysplasia. D. Colon, left, biopsy: - Colonic mucosa with no diagnostic abnormality. - Negative for active and granulomatous inflammation. - Negative for dysplasia. E. Rectum, biopsy: - Focal active colitis. - Negative for granulomatous inflammation and dysplasia. Performed By: #### S ####[facility] LABCLIA [id number] [address] [place] FINAL PERFORMING LAB Normal [facility] Comment on above: Order Comment: Speci men Type: TISSUE SPECIMENOrdering Facility: [facility] Address: [address] [address] Result Comment: Diag nostic interpretation performed at [facility], [address] [address] CLIA# [id number] Sheet Catcher: Forrest Rubio M.D. Performed By: #### S ####[facility] LABCLIA [id number] [address] [place] GROSS DESCRIPTION A. ILEUM BIOPSY Normal [facility] Comment on above: Order Comment: Speci men Type: TISSUE SPECIMENOrdering Facility: [facility] Address: [address] [facility] [place] [address] Result Comment: Rece ived in formalin is one piece of juan, soft tissue measuring 0.3 x 0.3 x 0.2 cm. Totally submitted in one cassette. B. COLON BIOPSY Received in formalin are multiple pieces of juan, soft tissue aggregating to 1.6 x 0.2 x 0.2 cm. Totally submitted in one cassette. C. TRANSVERSE COLON BIOPSY Received in formalin are multiple pieces of juan, soft tissue aggregating to 1.8 x 0.2 x 0.2 cm. Totally submitted in one cassette. D. COLON LEFT BIOPSY Received in formalin are multiple pieces of juan, soft tissue aggregating to 1.7 x 0.3 x 0.2 cm. Totally submitted in one cassette. E. RECTAL BIOPSY Received in formalin are two pieces of juan, soft tissue aggregating to 0.8 x 0.3 x 0.2 cm. Totally submitted in one cassette. Gross examination performed at [facility], [address] [id number] J 04/02/2023 11:50 PM Performed By: #### S ####[facility] LABCLIA [id number] [facility] [id number] [place], [place] [id number] [facility] CNOVon 03-12-2023 CNOV Office Visit (PDAVON ) ----- JESUS WOLF ([id number]) 1955 F Date Time Provider Department 03/12/23 9:20 AM BEVERLY FRANCO PDAVON During your visit today, we recorded the following information about you: Beverly Franco, KHADIJAH 03/12/2023 9:51 AM Signed SERVICE DATE: March 12, 2023 PCP: Wojciech Treviño, DO Subjective Patient ID: Jesus is a 68 year old female. Patient presents for follow-up of ulcer at tip of right second toe and preulcerative calluses third toe stating that she is doing very well. She has obtained new soft properly fitting shoes. Chief Complaint: Patient presents with: Ulcer: Right 1st PAIN EVALUATION No data found in the last 1 encounters. HPI patient was seen for an ulceration and cellulitis tip of the right second toe and placed on Keflex on February 12, she has been using Betadine and a dry sterile dressing until the wound dried up. Patient is anticoagulated with EliCrowdFeed Review of Systems ACTIVE PROBLEM LIST Edema Proteinuria Essential Hypertension Atrial Fibrillation (Hcc) Membranous Glomerulonephritis Vitamin D Deficiency Sle (Systemic Lupus Erythematosus) (Hcc) Fibromyalgia Sleep Apnea Encounter for Long-Term (Current) Use of Other High-Risk Medications Osteoarthritis of ankle and foot HALLUX VALGUS ACQUIRED Other Hammer Toe (Acquired) Enthesopathy of Ankle and Tarsus, Unspecified Lesion of Plantar Nerve Neuralgia, Neuritis, and Radiculitis, Unspecified Foot Pain, Left Other Synovitis and Tenosynovitis, Unspecified Ankle and Foot Osteoarthrosis of Ankle and Foot, Left Synovitis of Left Foot Synovitis of Right Foot Vocal Cord Edema Primary Osteoarthritis of Both Feet Synovitis of Foot Conjunctivitis Keratopathy Obesity, Class III, BMI >= 40 Hypothyroidism Chronic Congestive Heart Failure (Hcc) Status Post Right Hip Replacement S/P Total Hip Arthroplasty Mixed Hyperlipidemia Obesity, Class II, Bmi 35-39.9 Thoracic Ascending Aortic Aneurysm (Hcc) Hypercalcemia Hyperparathyroid (Hcc) PAST MEDICAL HISTORY Diagnosis Date Arrhythmia Atrial fibrillation (HCC) on coumadin Herniated intervertebral disk HTN (hypertension) Hyperlipemia Kidney disease MONI (obstructive sleep apnea) no longer using CPAP since 60 lb weight loss Other acute pancreatitis with uninfected necrosis SLE (systemic lupus erythematosus) (HCC) Sleep apnea 07/29/2012 PAST SURGICAL HISTORY Procedure Laterality Date APPENDECTOMY CARPAL TUNNEL RIGHT WRIST surgical correction COLONOSCOPY 05/10/2019 [facility] COLONOSCOPY GEN ANES 07/23/2020 Dr. Reinoso/Diverticulosis/Hemo rrhoids/ Ulcerative Colitis/Rpt in 2 yrs. EGD EUS 01/11/2020 [facility] LASIK Right prior to 1999 MRI PANC/JEANIE WO/W IVCON 12/20/2019 [facility] CYSTECTOMY PAST SURGICAL HISTORY OF 07/2013 bilateral foot procedure, Sherry PAST SURGICAL HISTORY OF Ablation X2 TONSILLECTOMY HX FAMILY HISTORY Problem Relation Age of Onset Alzheimer's Disease Father Hypertension Father Cataract Mother Hypertension Mother Colon Cancer Mother Cataract Sister Hypertension Sister Colon Cancer Paternal Uncle Social History Tobacco Use Smoking status: Never Smokeless tobacco: Never Vaping Use Vaping Use: Never used Substance Use Topics Alcohol use: Yes Comment: very rare Drug use: No Comment: denies tx for drug/alcohol abuse in the past. ALLERGIES Allergen Reactions Dofetilide Other: See Comments, Anaphylaxis V-tach Iodinated Contrast * Other: See Comments (Deep seafood) hot flashes, sweating. Other reaction(s): over heated/nausea Sulfa (Sulfonamide * Vomiting total body swelling and kidney shut down, body aches and rash Contrast Dye Other: See Comments (Deep seafood) hot flashes, sweating. Iodine Other: See Comments Hot flashes and sweating Codeine Other: See Comments severe headaches Compazine [Prochlor* Other: See Comments loss control of left side of face Tetnus [Tetanus Vac* Other: See Comments red spot in area of shot MEDICATIONS: pantoprazole DR (PROTONIX) 40 mg tablettake 1 tablet by mouth twice a dayDisp: 60 tabletRfl: 3 hydrOXYchloroQUINE (PLAQUENIL) 200 mg tablettake 1 tablet by mouth twice a day with foodDisp: 180 tabletRfl: 2 cephALEXin (KEFLEX) 500 mg capsuleTake 1 capsule by mouth four times daily.Disp: 28 capsuleRfl: 0 metoprolol succinate ER (TOPROL XL) 50 mg 24 hr tabletTAKE 1 TABLET BY MOUTH IN THE MORNING AND 2 TABLETS BY MOUTH IN THE EVENINGDisp: 270 tabletRfl: 3 diclofenac (VOLTAREN) 1 % topical gelApply 2 g to affected area four times daily.Disp: 200 gRfl: 2 colestipol (COLESTID) 1 gram tabletTAKE 2 TABLETS BY MOUTH TWICE A DAYDisp: 120 tabletRfl: 3 ELIQUIS 5 mg tab(s)Take 5 mg by mouth twice daily.Disp: Rfl: cholestyramine-sucrose (QUESTRAN) 4 gram powderTake 4 g (more content not included)... Normal [facility] Sarita 2023 GILMA Telephone (GASTAV) ----- JESUS WOLF ([id number]) 1955 F Date Time Provider Department 02/18/23 DIONE REINOSO During your visit today, we recorded the following information about you: Sandra Irving Pss 2023 2:56 PM Signed Jesus Wolf is calling Dione Reinoso MD today with concern regarding Appointment. Patient hoping to be able to have this done in [place], and when the soonest that would be. When I tried rescheduled it denied me. Please advise and call patient. Thank you! Patient has been identified by name and birthdate. Person calling: self Call patient at: at home [phone] (home) [phone] (cell) Was an appointment scheduled: No Closing statement: Results or non-symptom based questions: Thank you for calling [facility], your call will be returned within the next business day. Sandra Irving Pss Mariana Mendez 2023 3:09 PM Signed Spoke to patient offered 03/09 or 03/23 at [place] patient declined as she has commitments on those dates as well. Patient is on wait list Allergies As of Date: 2023 Noted Allergy Reaction DOFETILIDE 03/15/2020 14 - Other: See Comments 10 - Anaphylaxis Comments: V-tach IODINATED CONTRAST MEDIA 08/28/2010 14 - Other: See Comments Comments: (Deep seafood) hot flashes, sweating. Other reaction(s): over heated/nausea SULFA (SULFONAMIDE ANTIBIOTICS) 02/21/2010 11 - Vomiting Comments: total body swelling and kidney shut down, body aches and rash CONTRAST DYE 08/28/2010 14 - Other: See Comments Comments: (Deep seafood) hot flashes, sweating. IODINE 02/04/2023 14 - Other: See Comments Comments: Hot flashes and sweating CODEINE 02/21/2010 14 - Other: See Comments Comments: severe headaches COMPAZINE (PROCHLORPERAZINE EDISY*02/21/2010 14 - Other: See Comments Comments: loss control of left side of face TETNUS (TETANUS VACCINES AND TOXO*02/21/2010 14 - Other: See Comments Comments: red spot in area of shot Date Reviewed: 02/12/2023 Reviewed by: Selin Birmingham - Fully Assessed Reason for Visit: Appointment [186] Prescriptions as of 2023 - pantoprazole DR (PROTONIX) 40 mg tablet take 1 tablet by mouth twice a day - hydrOXYchloroQUINE (PLAQUENIL) 200 mg tablet take 1 tablet by mouth twice a day with food - cephALEXin (KEFLEX) 500 mg capsule Take 1 capsule by mouth four times daily. - metoprolol succinate ER (TOPROL XL) 50 mg 24 hr tablet TAKE 1 TABLET BY MOUTH IN THE MORNING AND 2 TABLETS BY MOUTH IN THE EVENING - diclofenac (VOLTAREN) 1 % topical gel Apply 2 g to affected area four times daily. - colestipol (COLESTID) 1 gram tablet TAKE 2 TABLETS BY MOUTH TWICE A DAY - ELIQUIS 5 mg tab(s) Take 5 mg by mouth twice daily. - cholestyramine-sucrose (QUESTRAN) 4 gram powder Take 4 g by mouth three times daily with meals. - ferrous sulfate (IRON) 325 mg (65 mg iron) tablet Take 1 tablet by mouth once daily. - alendronate (FOSAMAX) 70 mg tablet Take 1 tablet by mouth one time a week. In the morning with a full glass of water, on an empty stomach. Do not take anything else by mouth or lie down for the next 30 minutes. - Mesalamine (LIALDA) 1.2 gram EC tablet Take 4 tablets by mouth once daily. - acetaminophen (TYLENOL) 500 mg tablet Take 1 tablet by mouth every 4 hours as needed for pain. - aqrumex-klavqncvm-yqypamm D3 500 mg-5 mcg (200 unit) per tablet Take 1 tablet by mouth three times daily. - MV with Aui-Kellxcns-Mduxyq (CENTRUM SILVER) 0.4 mg-300 mcg- 250 mcg tab Take 1 tablet by mouth once daily. - celecoxib (CELEBREX) 200 mg capsule Take 200 mg by mouth twice daily. - sucralfate (CARAFATE) 100 mg/mL suspension Take 10 mL by mouth four times daily. - atorvastatin (LIPITOR) 40 mg tablet Take 1 tablet by mouth once daily. - Bifidobacterium infantis (ALIGN ORAL) Take by mouth once daily. - belimumab (BENLYSTA INTRAVENOUS) Inject intravenously. Patient reports she receives infusion every 3 months - venlafaxine ER (EFFEXOR XR) 150 mg 24 hr capsule Take 1 capsule by mouth once daily. - levothyroxine (SYNTHROID) 75 mcg tablet Take 75 mcg by mouth once daily. - furosemide (LASIX) 40 mg tablet Take 40 mg by mouth once daily. - busPIRone (BUSPAR) 10 mg tablet Take 10 mg by mouth daily at bedtime. - spironolactone (ALDACTONE) 50 mg tablet Take 50 mg by mouth once daily. - Cholecalciferol, Vitamin D3, 2,000 unit cap Take by mouth once daily. - vitamin b complex(B COMPLEX TAB) one daily - multivitamins w-minerals/lut(CENTRUM SILVER TAB) Take one(1) tablet daily. Facility-Administered Medications as of 2023 - perflutren lipid microspheres 1.3 mL in NaCl (PF) 0.9% 10 mL injection (DEFINITY) - sodium chloride 0.9 % (flush) 10 mL (BD POSIFLUSH) Problem List As Of Date 2023 Noted Resolved Edema [R60.9] 02/22/2010 Proteinuria [R80.9] 02/22/2010 Essential hypertension [I1 (more content not included)... [facility] JESUS WOLF ([id number]) 1955 F Date Time Provider Department 02/13/23 DIONE REINOSO During your visit today, we recorded the following information about you: Bang Spears RN 02/13/2023 3:02 PM Signed ----- Message from Dione Reinoso MD sent at 02/11/2023 11:33 AM EDT ----- Fcp still elevated, how is she feeling? May need to perform colonoscopy in the next 1-2 months Bang Spears RN 02/13/2023 3:06 PM Signed Spoke to the patient. She stats she is Feeling ok Pt is having 6-8 stools a day, mostly soft diarrhea She states this is the same bowel habits from before, no change. No blood. No other symptoms. Dr. Reinoso, do you still want colonoscopy? Please advise. Thank you, JITENDRA Abad RN 2023 1:47 PM Signed Dione Reinoso MD You 1 hour ago (12:19 PM) I think we need to assess her disease since her FCP remains significantly elevated Spoke to the patient. Pt agrees with planning colonoscopy. Dr. Reinoso, please review the order and sign. Cook Mayonnaise, please call the patient to make arrangements. Thank you, Bang Spears RN Mariana Sutton Vanessa 2023 1:57 PM Signed Spoke to patient she is scheduled for colonoscopy with Dr Reinoso at on 04/02 offered sooner patient unable to make dates Allergies As of Date: 02/13/2023 Noted Allergy Reaction DOFETILIDE 03/15/2020 14 - Other: See Comments 10 - Anaphylaxis Comments: V-tach IODINATED CONTRAST MEDIA 08/28/2010 14 - Other: See Comments Comments: (Deep seafood) hot flashes, sweating. Other reaction(s): over heated/nausea SULFA (SULFONAMIDE ANTIBIOTICS) 02/21/2010 11 - Vomiting Comments: total body swelling and kidney shut down, body aches and rash CONTRAST DYE 08/28/2010 14 - Other: See Comments Comments: (Deep seafood) hot flashes, sweating. IODINE 02/04/2023 14 - Other: See Comments Comments: Hot flashes and sweating CODEINE 02/21/2010 14 - Other: See Comments Comments: severe headaches COMPAZINE (PROCHLORPERAZINE EDISY*02/21/2010 14 - Other: See Comments Comments: loss control of left side of face TETNUS (TETANUS VACCINES AND TOXO*02/21/2010 14 - Other: See Comments Comments: red spot in area of shot Date Reviewed: 02/12/2023 Reviewed by: Selin Birmingham - Fully Assessed Reason for Visit: Results [95] Cmt: labs Primary Visit Diagnosis:IBD (inflammatory bowel disease) [K52.9] Order(s):COLONOSCOPY DIAGNOSTIC [GI11] Order #: [id number] FUTURE Prescriptions as of 2023 - pantoprazole DR (PROTONIX) 40 mg tablet take 1 tablet by mouth twice a day - hydrOXYchloroQUINE (PLAQUENIL) 200 mg tablet take 1 tablet by mouth twice a day with food - cephALEXin (KEFLEX) 500 mg capsule Take 1 capsule by mouth four times daily. - metoprolol succinate ER (TOPROL XL) 50 mg 24 hr tablet TAKE 1 TABLET BY MOUTH IN THE MORNING AND 2 TABLETS BY MOUTH IN THE EVENING - diclofenac (VOLTAREN) 1 % topical gel Apply 2 g to affected area four times daily. - colestipol (COLESTID) 1 gram tablet TAKE 2 TABLETS BY MOUTH TWICE A DAY - ELIQUIS 5 mg tab(s) Take 5 mg by mouth twice daily. - cholestyramine-sucrose (QUESTRAN) 4 gram powder Take 4 g by mouth three times daily with meals. - ferrous sulfate (IRON) 325 mg (65 mg iron) tablet Take 1 tablet by mouth once daily. - alendronate (FOSAMAX) 70 mg tablet Take 1 tablet by mouth one time a week. In the morning with a full glass of water, on an empty stomach. Do not take anything else by mouth or lie down for the next 30 minutes. - Mesalamine (LIALDA) 1.2 gram EC tablet Take 4 tablets by mouth once daily. - acetaminophen (TYLENOL) 500 mg tablet Take 1 tablet by mouth every 4 hours as needed for pain. - tfqbmky-qeqhigsdm-vcbhixv D3 500 mg-5 mcg (200 unit) per tablet Take 1 tablet by mouth three times daily. - MV with Dns-Oaemcsby-Kalrxu (CENTRUM SILVER) 0.4 mg-300 mcg- 250 mcg tab Take 1 tablet by mouth once daily. - celecoxib (CELEBREX) 200 mg capsule Take 200 mg by mouth twice daily. - sucralfate (CARAFATE) 100 mg/mL suspension Take 10 mL by mouth four times daily. - atorvastatin (LIPITOR) 40 mg tablet Take 1 tablet by mouth once daily. - Bifidobacterium infantis (ALIGN ORAL) Take by mouth once daily. - belimumab (BENLYSTA INTRAVENOUS) Inject intravenously. Patient reports she receives infusion every 3 months - venlafaxine ER (EFFEXOR XR) 150 mg 24 hr capsule Take 1 capsule by mouth once daily. - levothyroxine (SYNTHROID) 75 mcg tablet Take 75 mcg by mouth once daily. - furosemide (LASIX) 40 mg tablet Take 40 mg by mouth once daily. - busPIRone (BUSPAR) 10 mg tablet Take 10 mg by mouth daily at bedtime. - spironolactone (ALDACTONE) 50 mg tablet Take 50 mg by mouth once daily. - Cholecalciferol, Vitamin D3, 2,000 unit cap Take by mouth once daily. - vitamin b complex(B COMPLEX TAB) one daily - multivita (more content not included)... Normal [facility] CNOVon 02-12-2023 CNOV Office Visit (PDAVON ) ----- JESUS WOLF ([id number]) 1955 F Date Time Provider Department 02/12/23 11:15 AM BEVERLY FRANCO PDAFADI During your visit today, we recorded the following information about you: Beverly Franco DPM 02/12/2023 2:51 PM Signed SERVICE DATE: February 12, 2023 PCP: Wojciech Treviño MD, DO Subjective Patient ID: Jesus is a 67 year old female. Patient presents today for follow-up of ulceration on the plantar surface of the right first MTPJ stating that at site appears to be doing well but 2 days ago she snagged the tip of her second toe on an eye hook in the floor and now has a wound at that site. She denies fever, chills, malaise Chief Complaint: Patient presents with: Ulcer: Right second ulcer PAIN EVALUATION No data found in the last 1 encounters. HPI patient has had ulcer underlying right first metatarsal head which is being treated through offloading with surgical shoe and appropriately modified peg assist insert. 2 days ago she caught the second toe on and I hook in the floor and did not have her shoe on and now has a wound at that site. Patient is anticoagulated with Eliquis. Patient has been treating site with Neosporin cream Review of Systems ACTIVE PROBLEM LIST Edema Proteinuria Essential Hypertension Atrial Fibrillation (Hcc) Membranous Glomerulonephritis Vitamin D Deficiency Sle (Systemic Lupus Erythematosus) (Hcc) Fibromyalgia Sleep Apnea Encounter for Long-Term (Current) Use of Other High-Risk Medications Osteoarthritis of ankle and foot HALLUX VALGUS ACQUIRED Other Hammer Toe (Acquired) Enthesopathy of Ankle and Tarsus, Unspecified Lesion of Plantar Nerve Neuralgia, Neuritis, and Radiculitis, Unspecified Foot Pain, Left Other Synovitis and Tenosynovitis, Unspecified Ankle and Foot Osteoarthrosis of Ankle and Foot, Left Synovitis of Left Foot Synovitis of Right Foot Vocal Cord Edema Primary Osteoarthritis of Both Feet Synovitis of Foot Conjunctivitis Keratopathy Obesity, Class III, BMI >= 40 Hypothyroidism Chronic Congestive Heart Failure (Hcc) Status Post Right Hip Replacement S/P Total Hip Arthroplasty Mixed Hyperlipidemia Obesity, Class II, Bmi 35-39.9 Thoracic Ascending Aortic Aneurysm (Hcc) Hypercalcemia Hyperparathyroid (Hcc) PAST MEDICAL HISTORY Diagnosis Date Arrhythmia Atrial fibrillation (HCC) on coumadin Herniated intervertebral disk HTN (hypertension) Hyperlipemia Kidney disease MONI (obstructive sleep apnea) no longer using CPAP since 60 lb weight loss Other acute pancreatitis with uninfected necrosis SLE (systemic lupus erythematosus) ([facility]) Sleep apnea 07/29/2012 PAST SURGICAL HISTORY Procedure Laterality Date APPENDECTOMY CARPAL TUNNEL RIGHT WRIST surgical correction COLONOSCOPY 05/10/2019 [facility] COLONOSCOPY GEN ANES 07/23/2020 Dr. Reinoso/Diverticulosis/Hemo rrhoids/ Ulcerative Colitis/Rpt in 2 yrs. EGD EUS 01/11/2020 [facility] LASIK Right prior to 1999 MRI PANC/JEANIE WO/W IVCON 12/20/2019 OVARIAN CYSTECTOMY PAST SURGICAL HISTORY OF 07/2013 bilateral foot procedure, Sherry PAST SURGICAL HISTORY OF Ablation X2 TONSILLECTOMY HX FAMILY HISTORY Problem Relation Age of Onset Alzheimer's Disease Father Hypertension Father Cataract Mother Hypertension Mother Colon Cancer Mother Cataract Sister Hypertension Sister Colon Cancer Paternal Uncle Social History Tobacco Use Smoking status: Never Smokeless tobacco: Never Vaping Use Vaping Use: Never used Substance Use Topics Alcohol use: Yes Comment: very rare Drug use: No Comment: denies tx for drug/alcohol abuse in the past. ALLERGIES Allergen Reactions Dofetilide Other: See Comments, Anaphylaxis V-tach Iodinated Contrast * Other: See Comments (Deep seafood) hot flashes, sweating. Other reaction(s): over heated/nausea Sulfa (Sulfonamide * Vomiting total body swelling and kidney shut down, body aches and rash Contrast Dye Other: See Comments (Deep seafood) hot flashes, sweating. Iodine Other: See Comments Hot flashes and sweating Codeine Other: See Comments severe headaches Compazine [Prochlor* Other: See Comments loss control of left side of face Tetnus [Tetanus Vac* Other: See Comments red spot in area of shot MEDICATIONS: metoprolol succinate ER (TOPROL XL) 50 mg 24 hr tabletTAKE 1 TABLET BY MOUTH IN THE MORNING AND 2 TABLETS BY MOUTH IN THE EVENINGDisp: 270 tabletRfl: 3 diclofenac (VOLTAREN) 1 % topical gelApply 2 g to affected area four times daily.Disp: 200 gRfl: 2 colestipol (COLESTID) 1 gram tabletTAKE 2 TABLETS BY MOUTH TWICE A DAYDisp: 120 tabletRfl: 3 ELIQUIS 5 mg tab(s)Take 5 mg by mouth twice daily.Disp: Rfl: cholestyramine-sucrose (QUESTRAN) 4 gram powderTake 4 g by mouth three times daily with meals.Di (more content not included)... [facility] ----- JESUS WOLF ([id number]) 1955 F Date Time Provider Department 02/09/23 BRYAN PAINTING During your visit today, we recorded the following information about you: Sarai Menjivar RN 02/09/2023 1:31 PM Signed Phoned pt and spoke with her. Dr. Painting has reviewed her labs and they are good. Dr. Painting did notice her creatinine had gone up a bit and asked that Jesus stays hydrated. Pt states she will. Sarai Menjivar RN Allergies As of Date: 02/09/2023 Noted Allergy Reaction DOFETILIDE 03/15/2020 14 - Other: See Comments 10 - Anaphylaxis Comments: V-tach IODINATED CONTRAST MEDIA 08/28/2010 14 - Other: See Comments Comments: (Deep seafood) hot flashes, sweating. Other reaction(s): over heated/nausea SULFA (SULFONAMIDE ANTIBIOTICS) 02/21/2010 11 - Vomiting Comments: total body swelling and kidney shut down, body aches and rash CONTRAST DYE 08/28/2010 14 - Other: See Comments Comments: (Deep seafood) hot flashes, sweating. IODINE 02/04/2023 16 - Unknown CODEINE 02/21/2010 14 - Other: See Comments Comments: severe headaches COMPAZINE (PROCHLORPERAZINE EDISY*02/21/2010 14 - Other: See Comments Comments: loss control of left side of face TETNUS (TETANUS VACCINES AND TOXO*02/21/2010 14 - Other: See Comments Comments: red spot in area of shot Date Reviewed: 02/04/2023 Reviewed by: BRANDYN Childers - Fully Assessed Reason for Visit: Results [95] Prescriptions as of 02/09/2023 - nitrofurantoin monohydrate and macrocrystal (MACROBID) 100 mg capsule Take 1 capsule by mouth twice daily for 5 days. - diclofenac (VOLTAREN) 1 % topical gel Apply 2 g to affected area four times daily. - colestipol (COLESTID) 1 gram tablet TAKE 2 TABLETS BY MOUTH TWICE A DAY - ELIQUIS 5 mg tab(s) Take 5 mg by mouth twice daily. - cholestyramine-sucrose (QUESTRAN) 4 gram powder Take 4 g by mouth three times daily with meals. - ferrous sulfate (IRON) 325 mg (65 mg iron) tablet Take 1 tablet by mouth once daily. - pantoprazole DR (PROTONIX) 40 mg tablet Take 1 tablet by mouth twice daily. - alendronate (FOSAMAX) 70 mg tablet Take 1 tablet by mouth one time a week. In the morning with a full glass of water, on an empty stomach. Do not take anything else by mouth or lie down for the next 30 minutes. - Mesalamine (LIALDA) 1.2 gram EC tablet Take 4 tablets by mouth once daily. - acetaminophen (TYLENOL) 500 mg tablet Take 1 tablet by mouth every 4 hours as needed for pain. - mszkwey-icslhlilc-ienbbol D3 500 mg-5 mcg (200 unit) per tablet Take 1 tablet by mouth three times daily. - MV with Iux-Xklbvxnh-Ppleug (CENTRUM SILVER) 0.4 mg-300 mcg- 250 mcg tab Take 1 tablet by mouth once daily. - celecoxib (CELEBREX) 200 mg capsule Take 200 mg by mouth twice daily. - hydrOXYchloroQUINE (PLAQUENIL) 200 mg tablet take 1 tablet by mouth twice a day with food - metoprolol succinate ER (TOPROL XL) 50 mg 24 hr tablet 50mg in am and 100mg in pm. - sucralfate (CARAFATE) 100 mg/mL suspension Take 10 mL by mouth four times daily. - atorvastatin (LIPITOR) 40 mg tablet Take 1 tablet by mouth once daily. - Bifidobacterium infantis (ALIGN ORAL) Take by mouth once daily. - belimumab (BENLYSTA INTRAVENOUS) Inject intravenously. Patient reports she receives infusion every 3 months - venlafaxine ER (EFFEXOR XR) 150 mg 24 hr capsule Take 1 capsule by mouth once daily. - levothyroxine (SYNTHROID) 75 mcg tablet Take 75 mcg by mouth once daily. - furosemide (LASIX) 40 mg tablet Take 40 mg by mouth once daily. - busPIRone (BUSPAR) 10 mg tablet Take 10 mg by mouth daily at bedtime. - spironolactone (ALDACTONE) 50 mg tablet Take 50 mg by mouth once daily. - Cholecalciferol, Vitamin D3, 2,000 unit cap Take by mouth once daily. - vitamin b complex(B COMPLEX TAB) one daily - multivitamins w-minerals/lut(CENTRUM SILVER TAB) Take one(1) tablet daily. 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 Normal [facility] Calprotectin (Stl) [Mass/Mas s]on 02-09-2023 CALPROTECTIN, FECAL INTERP Elevated Abnormal Normal [facility] Comment on above: Order Comment: Speci men Type: STOOL SPECIMENOrdering Facility: [facility] Address: [address] [place], [place] [address] Result Comment: On 2022, [facility] [employer] implemented a new fecal calprotectin method, the [employer] Calprotectin assay. For assistance with interpretation of results in patients undergoing serial monitoring, contact Client Services at [phone] or [phone] to discuss options, preferably within 7 days of issuing this report. Interpretation: <50.0 ug/g: Normal 50.0 ug/g - 120.0 ug/g: Borderline elevated. Re-evaluation in 4-6 weeks is recommended if clinically indicated. >120.0 ug/g: Elevated Performed By: #### 3 8445-3 ####[facility] [id number] [place] [address] [place] CALPROTECTIN, FECAL QUANTITATIVE 335 ug/g High <50 [facility] Comment on above: Order Comment: Morena barragan Type: STOOL SPECIMENOrdering Facility: [facility] Address: [address] [place] [address] Performed By: #### 3 8445-3 ####[facility] [id number] [address] [place] C3 COMPLEMENT BLDon 02-06-20 Complement C3 [Mass/Vol] 179 mg/dL High 86 - 166 mg/dL [facility] 25(OH)D3 SerPl-mCncon 2022 25-hydroxyvitamin D3 [Mass/Vol] 52.0 ng/mL Normal 31.0-80.0 [facility] Comment on above: Order Comment: Morena barragan Type: BLOOD SPECIMEN [facility]ing [facility]: [facility] Address: [address] [place] [address] Result Comment: Clas sification of 25 [place] Vitamin D status: Deficiency/Insufficiency: < or = 30 ng/ml. Sufficiency/Optimal Levels: 31-80 ng/mL Toxicity: > 100 ng/mL. Test performed by chemiluminescent immunoassay. Performed By: #### 1 989-3 #### [facility] CLIA [id number] [address] [place] [address] STATES [facility] PARVEZ BY IFA WITH REFLEXon Nuclear Ab IF (S) [Titer] Negative Normal Negative [facility] Comment on above: Order Comment: Morena yung Type: BLOOD SPECIMEN [facility]: [facility] Address: [address] [place] [address] Result Comment: Anti -nuclear antibody test is used as an aid in diagnosis of systemic autoimmune diseases. Where positive and clinically warranted, follow-up using disease-specific testing is recommended. Low positive titers are not uncommon with advanced age, certain chronic infections, and malignancies among others. Test methodology: Indirect fluorescence immunoassay (IFA) using HEp-2 cells. Performed By: #### A NAIFR #### [facility] CLIA [id number] [facility] [address] [place] C3 SerPl-mCncon 02-04-2023 Complement C3 [Mass/Vol] 179 mg/dL High 86-166 [facility] Comment on above: Order Comment: Speci men Type: BLOOD SPECIMEN [facility] Address: [address] [place] [address] Performed By: #### Neville NAAB, 73376-9 #### [facility] CLIA [id number] [address] [place] [address] [place] C4 COMPLEMENT BLDon 02-05-20 Complement C4 [Mass/Vol] 39 mg/dL 13 - 46 mg/dL [facility] C4 SerPl-mCncon 02-04-2023 Complement C4 [Mass/Vol] 39 mg/dL Normal 13-46 [facility] Comment on above: Order Comment: Speci men Type: BLOOD SPECIMEN [facility] Address: [address] [place] [address] Performed By: #### Neville NAAB, 73954-3 #### [facility] CLIA [id number] [address] [place] [address] [place] CBC W Auto Differential pane l (Bld)on 02-04-2023 Basophils (Bld) [#/Vol] 0.03 10*3/uL Normal <0.11 [facility] Comment on above: Order Comment: Speci men Type: BLOOD SPECIMEN [facility]ing [facility] Address: [address] Performed By: #### Neville NAAB, 05335-3 #### [facility] CLIA [id number] [address] [place] [address] [place] Basophils/100 WBC (Bld) 0.4 % Normal [facility] Comment on above: Order Comment: Speci men Type: BLOOD SPECIMEN [facility] Address: [address] [place] [address] Performed By: #### Neville NAAB, 88308-8 #### [facility] CLIA [id number] [address] [place] [address] [place] Differential cell count method Nom (Bld) Auto Normal [facility] Comment on above: Order Comment: Speci men Type: BLOOD SPECIMEN [facility] Address: [address] [place] [address] Performed By: #### D NAAB, 46557-7 #### [facility] CLIA [id number] [address] [place] [address] [place] Eosinophils (Bld) [#/Vol] 0.26 10*3/uL Normal <0.46 [facility] Comment on above: Order Comment: Speci men Type: BLOOD SPECIMEN [facility] Address: [address] [place] [address] Performed By: #### D NAAB, 65060-0 #### [facility] CLIA [id number] [address] [place] [address] [place] Eosinophils/100 WBC (Bld) 3.1 % Normal [facility] Comment on above: Order Comment: Speci men Type: BLOOD SPECIMEN [facility]ing [facility] Address: [address] [place], [place] [address] Performed By: #### D NAAB, 91560-3 #### [facility] CLIA [id number] [address] [place] [address] [place] Erythrocyte distribution width (RBC) [Ratio] 13.2 % Normal 11.5-15.0 [facility] Comment on above: Order Comment: Speci men Type: BLOOD SPECIMEN Ordering [facility]: [facility] Address: [address] [place], [place] [address] Performed By: #### D NAAB, 25679-8 #### [facility] CLIA [id number] [address] [place] [address] [place] Hematocrit (Bld) [Volume fraction] 41.8 % Normal 36.0-46.0 [facility] Comment on above: Order Comment: Speci men Type: BLOOD SPECIMEN [facility] Address: [address] Performed By: #### D NAAB, 23627-7 #### [facility] CLIA [id number] [address] [place] [address] [place] Hemoglobin (Bld) [Mass/Vol] 13.5 g/dL Normal 11.5-15.5 [facility] Comment on above: Order Comment: Speci men Type: BLOOD SPECIMEN [facility] Address: [address] Performed By: #### D NAAB, 99969-7 #### [facility] CLIA [id number] [address] [place] [address] [place] Immature granulocytes (Bld) [#/Vol] 10*3/uL Normal <0.10 [facility] Comment on above: Order Comment: Speci men Type: BLOOD SPECIMEN [facility] Address: [address] [place], [place] [address] Performed By: #### D NAAB, 12876-4 #### [facility] CLIA [id number] [address] [place] [address] [place] Immature granulocytes/100 WBC (Bld) 0.2 % Normal [facility] Comment on above: Order Comment: Speci men Type: BLOOD SPECIMEN Ordering Facility[facility] Address: [address] [place] [address] Performed By: #### D NAAB, 95247-1 #### [facility] CLIA [id number] [address] [place] [address] [place] Lymphocytes (Bld) [#/Vol] 2.04 10*3/uL Normal 1.00-4.00 [facility] Comment on above: Order Comment: Speci men Type: BLOOD SPECIMEN Order[facility] Address: [address] [place] [address] Performed By: #### D NAAB, 01005-0 #### [facility] CLIA [id number] [address] [place] [address] [place] Lymphocytes/100 WBC (Bld) 24.5 % Normal [facility] Comment on above: Order Comment: Speci men Type: BLOOD SPECIMEN [facility] Address: [address] Performed By: #### D NAAB, 80011-9 #### [facility] CLIA [id number] [address] [place] [address] [place] MCH (RBC) [Entitic mass] 31.3 pg Normal 26.0-34.0 [facility] Comment on above: Order Comment: Speci men Type: BLOOD SPECIMEN [facility] Address: [address] Performed By: #### D NAAB, 92669-6 #### [facility] CLIA [id number] [address] [place] [address] [place] MCHC (RBC) [Mass/Vol] 32.3 g/dL Normal 30.5-36.0 [facility] Comment on above: Order Comment: Speci men Type: BLOOD SPECIMEN [facility] Address: [address] [place] [address] Performed By: #### D NAAB, 95837-7 #### [facility] CLIA [id number] [address] [place] [address] [place] MCV (RBC) [Entitic vol] 97.0 fL Normal 80.0-100.0 [facility] Comment on above: Order Comment: Speci men Type: BLOOD SPECIMEN [facility] Address: [address] Performed By: #### D NAAB, 32760-9 #### [facility] CLIA [id number] [address] [place] [address] [place] Monocytes (Bld) [#/Vol] 0.92 10*3/uL High <0.87 [facility] Comment on above: Order Comment: Speci men Type: BLOOD SPECIMEN [facility]: [facility] Address: [address] [place] [address] Performed By: #### D NAAB, 99997-4 #### [facility] CLIA [id number] [facility] [place] [address] [place] Monocytes/100 WBC (Bld) 11.0 % Normal [facility] Comment on above: Order Comment: Speci men Type: BLOOD SPECIMEN [facility] Address: [address] [place] [address] Performed By: #### D NAAB, 23028-1 #### [facility] CLIA [id number] [address] [place] [address] [place] Neutrophils (Bld) [#/Vol] 5.07 10*3/uL Normal 1.45-7.50 [facility] Comment on above: Order Comment: Speci men Type: BLOOD SPECIMEN [facility] Address: [address] [place], [place] [address] Performed By: #### D NAAB, 49289-9 #### [facility] CLIA [id number] [address] [place] [address] [place] Neutrophils/100 WBC (Bld) 60.8 % Normal [facility] Comment on above: Order Comment: Speci men Type: BLOOD SPECIMEN [facility] Address: [address] [place], [place] [address] Performed By: #### D NAAB, 62273-8 #### [facility] CLIA [id number] [address] [id number] [place] Nucleated RBC (Bld) [#/Vol] 10*3/uL Normal <0.01 [facility] Comment on above: Order Comment: Speci men Type: BLOOD SPECIMEN Ordering Facility: [facility] Address: [address] Performed By: #### D NAAB, 53310-9 #### [facility] CLIA [id number] [address] [place] [address] [place] Nucleated RBC/100 WBC (Bld) [Ratio] 0.0 /100 WBC Normal [facility] Comment on above: Order Comment: Speci men Type: BLOOD SPECIMEN Ordering Facility: [facility] Address: [address] Performed By: #### D NAAB, 01179-4 #### [facility] CLIA [id number] [address] [place] [address] [place] Platelet mean volume (Bld) [Entitic vol] 10.5 fL Normal 9.0-12.7 [facility] Comment on above: Order Comment: Speci men Type: BLOOD SPECIMEN Ordering Facility: [facility] Address: [address] [place], [place] [address] Performed By: #### D NAAB, 37439-9 #### [facility] CLIA [id number] [address] [place] [address] [place] Platelets (Bld) [#/Vol] 279 10*3/uL Normal 150-400 [facility] Comment on above: Order Comment: Speci men Type: BLOOD SPECIMEN Ordering Facility: [facility] Address: [address] Performed By: #### D NAAB, 49785-5 #### [facility] CLIA [id number] [address] [place] [address] [place] RBC (Bld) [#/Vol] 4.31 10*6/uL Normal 3.90-5.20 [facility] Comment on above: Order Comment: Speci men Type: BLOOD SPECIMEN Ordering Facility: [facility] Address: [address] [address] Performed By: #### D NAAB, 79162-8 #### [facility] CLIA [id number] [address] [place] [address] [place] WBC (Bld) [#/Vol] 8.34 10*3/uL Normal 3.70-11.00 [facility] Comment on above: Order Comment: Speci men Type: BLOOD SPECIMEN Ordering Facility: [facility] Address: [address] [address] Performed By: #### D NAAB, 13394-4 #### [facility] CLIA [id number] [address] [place] [address] [place] Basophils (Bld) [#/Vol] 0.03 10*3/uL <0.11 k/uL [facility] Basophils/100 WBC (Bld) 0.4 % [facility] Differential cell count method Nom (Bld) Auto [facility] Eosinophils (Bld) [#/Vol] 0.26 10*3/uL <0.46 k/uL [facility] Eosinophils/100 WBC (Bld) 3.1 % [facility] Erythrocyte distribution width (RBC) [Ratio] 13.2 % 11.5 - 15.0 % [facility] Hematocrit (Bld) [Volume fraction] 41.8 % 36.0 - 46.0 % [facility] Hemoglobin (Bld) [Mass/Vol] 13.5 g/dL 11.5 - 15.5 g/dL [facility] Immature granulocytes (Bld) [#/Vol] <0.10 k/uL [facility] Immature granulocytes/100 WBC (Bld) 0.2 % [facility] Lymphocytes (Bld) [#/Vol] 2.04 10*3/uL 1.00 - 4.00 k/uL [facility] Lymphocytes/100 WBC (Bld) 24.5 % [facility] MCH (RBC) [Entitic mass] 31.3 pg 26.0 - 34.0 pg [facility] MCHC (RBC) [Mass/Vol] 32.3 g/dL 30.5 - 36.0 g/dL [facility] MCV (RBC) [Entitic vol] 97.0 fL 80.0 - 100.0 fL [facility] Monocytes (Bld) [#/Vol] 0.92 10*3/uL High <0.87 k/uL [facility] Monocytes/100 WBC (Bld) 11.0 % [facility] Neutrophils (Bld) [#/Vol] 5.07 10*3/uL 1.45 - 7.50 k/uL [facility] Neutrophils/100 WBC (Bld) 60.8 % [facility] Nucleated RBC (Bld) [#/Vol] <0.01 k/uL [facility] Nucleated RBC/100 WBC (Bld) [Ratio] 0.0 /100 WBC [facility] Platelet mean volume (Bld) [Entitic vol] 10.5 fL 9.0 - 12.7 fL [facility] Platelets (Bld) [#/Vol] 279 10*3/uL 150 - 400 k/uL [facility] RBC (Bld) [#/Vol] 4.31 10*6/uL 3.90 - 5.2 0 m/uL [facility] WBC (Bld) [#/Vol] 8.34 10*3/uL 3.70 - 11.00 k/uL [facility] CK CREATINE KINASEon 023 CK [Catalytic activity/Vol] 377 U/L High 42 - 196 U/L [facility] CK SerPl-cCncon 02-04-2023 CK [Catalytic activity/Vol] 377 U/L High 42-196 [facility] Comment on above: Order Comment: Speci men Type: BLOOD SPECIMEN Ordering Facility: [facility] Address: [address] [place], [place] [address] Performed By: #### D NAAB, 09867-0 #### [facility] CLIA [id number] [address] [place] [address] OF [facility] CNOVon 02-04-2023 CNOV Office Visit (RHEUMN ) ----- JESUS WOLF ([id number]) 1955 F Date Time Provider Department 02/04/23 1:00 PM NADEGE HAWKINS RHEUMLise During your visit today, we recorded the following information about you: Temperature Pulse Blood pressure Weight 97 degrees 72/minute 116/54 113.4 kg Nadege Hawkins DO 02/04/2023 4:07 PM Signed [facility] DEPARTMENT OF RHEUMATIC AND IMMUNOLOGIC DISEASES This consult was requested by the doctor listed below for an opinion regarding the chief complaint listed below, and my final recommendations will be communicated to the requesting health care provider by way of the shared medical record for internal providers or letter via the U.S. Postal Service for external providers. Referring Physician: No referring provider defined for this encounter. SUBJECTIVE: Reason for visit: SLE History of Present Illness: Jesus Wolf is a 67 year old female with PMHx significant for HTN, HLD, HFpEF, MONI not on CPAP, pAF s/p PVI 2x, hypothyroidism, primary hyperparathyroidism, ulcerative colitis, gallstone pancreatitis, IPMN, osteopenia is evaluated in the Rheumatology Clinic for SLE. 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 There is no endocapillary hypercellularity, karyorrhexis, fibrinoid necrosis, rupture of glomerular basement membranes, crescents, wireloops or hyaline thrombi. There is minimal, patchy tubulointerstitial atrophy and fibrosis and a mild chronic interstitial infiltrate. Vessels are unremarkable. Immunofluorescence: There is finely granular glomerular basement membrane and mesangial positivity for kappa (3+), lambda (3+), C3c (3+), IgG (2+), IgA (1+), IgM (1+) and C1q (faint). There is also granular tubular basement membrane positivity for kappa, lambda and C3c. Albumin is negative. Electron microscopy: There are subepithelial and mesangial electron dense deposits, with overlying epithelial foot processes effacement Last seen by Dr. Hardin 02/2022: SLE and membraneous nephropathy. Failed cyclosporine. Started MMF 06/26, Benlysta 09/28 every month then starting in February 2012 started every two months Jun 2012. Aug 2013 Benlysta moved to every 3 months. Also on Plaquenil and cellcept 1g BID. August 2018 cellcept was decreased to 1500 mg daily because of recurrent URI . March 2020 admitted with CHF A. fib on Eliquis DX 1998 ulcerative colitis on mesalamine therapy Has pancreatitis and IPMN. Takes prednisone before benlysta because of burning eye symptoms with Benlysta , no anaphylaxis Had GI evaluation and general surgery and thought the pancreatitis thought to be to gall bladder stone Had a hip replacement right hip in December 2020 Tapering cellcept on 1 gram daily Does not use the CPAP Had eye exam in 2021 and was normal Had recent UTI was treated with antibiotics then developed C. difficile feels better now. Patient has been having joint pain in her shoulders, knees and fingers, achy in nature, upon movement, for the past 4-5 years, overall feels worse, no redness, swelling, or warmth, but reports intermittent episodes of severe shoulder/arm pain that limits her movements, and is worse when she lays it. Patient reports no numbness, but reports weakness, has to walk slower, difficult rising from a sitting to a standing position related to pain and weakness, no upper extremity weakness, relates to the use of prednisone in 2009, chronically, improves with physical therapy. No rashes, no oral or nasal ulcers, still reports photosensitivity, oral lesion, painful, started Thursday night, Thursday morning, tries to keep it moist. Reports Raynaud's in the cold. Has morning stiffness which lasts 15-20 minutes. No night sweats, fever, weight loss. Current Medications: MMF 500 mg BID, down from 1 g bid due to recurrent URI HCQ 400 mg once daily Belimumab infusions every months PMHx: PAST MEDICAL HISTORY Diagnosis Date Arrhythmia Atrial fibrillation (HCC) on coumadin Herniated intervertebral disk HTN (hypertension) Hyperlipemia Kidney disease MONI (obstructive sleep apnea) no longer using CPAP since 60 lb weight loss Other acute pancreatitis with uninfected necrosis SLE (systemic lupus erythematosus) (HCC) Sleep apnea 07/29/2012 PSHx: PAST SURGICAL HISTORY Procedure Laterality Date APPENDECTOMY CARPAL TUNNEL RIGHT WRIST surgical correction COLONOSCOPY 05/10/2019 [facility] COLONOSCOPY GEN ANES 07/23/2020 Dr. Reinoso/Diverticulosis/Hemo rrhoids/ Ulcerative Colitis/Rpt in 2 yrs. EGD EUS 01/11/2020 [facility] LASIK Right prior to 1999 MRI PANC/JEANIE WO/W I (more content not included)... Normal [facility] Comprehensive metabolic 2000 panelon 02-04-2023 Albumin [Mass/Vol] 4.2 g/dL 3.9 - 4.9 g/dL [facility] ALP [Catalytic activity/Vol] 116 U/L 34 - 123 U/L [facility] ALT [Catalytic activity/Vol] 20 U/L 7 - 38 U/L [facility] Anion gap [Moles/Vol] 14 mmol/L 9 - 18 mmol/L [facility] AST [Catalytic activity/Vol] 30 U/L 13 - 35 U/L [facility] Bilirubin [Mass/Vol] 0.6 mg/dL 0.2 - 1 .3 mg/dL [facility] Calcium [Mass/Vol] 9.8 mg/dL 8.5 - 10. 2 mg/dL [facility] Chloride [Moles/Vol] 106 mmol/L High 97 - 10 5 mmol/L [facility] CO2 [Moles/Vol] 20 mmol/L Low 22 - 30 mmol/L [facility] Creatinine [Mass/Vol] 1.14 mg/dL High 0.58 - 0.96 mg/dL [facility] Estimated Glomerular Filtration Rate 53 mL/min/1.73m Low >=60 mL/min/1.73 m [facility] Glucose [Mass/Vol] 82 mg/dL 74 - 99 mg/dL [facility] Potassium [Moles/Vol] 5.0 mmol/L 3.7 - 5.1 mmol/L [facility] Protein [Mass/Vol] 6.8 g/dL 6.3 - 8.0 g/dL [facility] Sodium [Moles/Vol] 140 mmol/L 136 - 144 mmol/L [facility] Urea nitrogen [Mass/Vol] 24 mg/dL High 7 - 21 mg/dL [facility] Albumin [Mass/Vol] 4.2 g/dL Normal 3.9-4.9 [facility] Comment on above: Order Comment: Speci men Type: BLOOD SPECIMEN Ordering Facility: [facility] Address: [address] [place] [address] [place], [place] Performed By: #### D NAAB, 67784-9 #### [facility] CLIA [id number] [address] [place] [address] [place] ALP [Catalytic activity/Vol] 116 U/L Normal 34-123 [facility] Comment on above: Order Comment: Speci men Type: BLOOD SPECIMEN Ordering Facility: [facility] Address: [address] Performed By: #### D NAAB, 04640-1 #### [facility] CLIA [id number] [address] [place] ALT [Catalytic activity/Vol] 20 U/L Normal 7-38 [facility] Comment on above: Order Comment: Speci men Type: BLOOD SPECIMEN Ordering Facility: [facility] Address: [address] [place], [place] [address] Performed By: #### D NAAB, 37344-4 #### [facility] CLIA [id number] [facility] [place] [address] [place] Anion gap [Moles/Vol] 14 mmol/L Normal 9-18 [facility] Comment on above: Order Comment: Speci men Type: BLOOD SPECIMEN Ordering Facility: [facility] Address: [address] [place], [place] [address] Performed By: #### D NAAB, 78815-5 #### [facility] CLIA [id number] [address] [place] [address] [place] AST [Catalytic activity/Vol] 30 U/L Normal 13-35 [facility] Comment on above: Order Comment: Speci men Type: BLOOD SPECIMEN Ordering Facility: [facility] Address: [address] [place] [address] Performed By: #### D NAAB, 95170-0 #### [facility] CLIA [id number] [address] [place] [address] [place] Bilirubin [Mass/Vol] 0.6 mg/dL Normal 0.2-1.3 [facility] Comment on above: Order Comment: Speci men Type: BLOOD SPECIMEN Ordering Facility: [facility] Address: [address] [place] [address] Performed By: #### D NAAB, 99468-7 #### [facility] CLIA [id number] [address] [place] [address] [place] Calcium [Mass/Vol] 9.8 mg/dL Normal 8.5-10.2 [facility] Comment on above: Order Comment: Speci men Type: BLOOD SPECIMEN Ordering Facility: [facility] Address: [address] [place], [place] [address] Performed By: #### D NAAB, 47716-6 #### [facility] CLIA [id number] [facility] [place] [address] [place] Chloride [Moles/Vol] 106 mmol/L High 97-105 [facility] Comment on above: Order Comment: Speci men Type: BLOOD SPECIMEN Ordering Facility: [facility] Address: [address] [place], [place] [address] Performed By: #### D NAAB, 93398-3 #### [facility] CLIA [id number] [address] [place] [address] [place] CO2 [Moles/Vol] 20 mmol/L Low 22-30 [facility] Comment on above: Order Comment: Speci men Type: BLOOD SPECIMEN Ordering Facility: [facility] Address: [address] [place], [place] [address] Performed By: #### D NAAB, 04524-7 #### [facility] CLIA [id number] [address] [place] [address] [place] Creatinine [Mass/Vol] 1.14 mg/dL High 0.58-0.96 [facility] Comment on above: Order Comment: Speci men Type: BLOOD SPECIMEN Ordering Facility: [facility] Address: [address] [address] Performed By: #### D DENNISE, 81855-6 #### [facility] CLIA [id number] [address] [place] [address] [place] ESTIMATED GLOMERULAR FILTRATION RATE 53 mL/min/1.73m??? Low >=60 [facility] Comment on above: Order Comment: Morena barragan Type: BLOOD SPECIMEN Ordering Facility: [facility] Address: [address] [place] [address] Result Comment: Anna mated Glomerular Filtration Rate (eGFR) is calculated using the 2020 CKD-EPI creatinine equation. This equation utilizes serum creatinine, sex, and age as parameters. The creatinine assay has traceable calibration to isotope dilution-mass spectrometry. Refer to KDIGO guidelines for clinical interpretation. In patients with unstable renal function, e.g. those with acute kidney injury, the eGFR may not accurately reflect actual GFR. Performed By: #### D DENNISE, 36456-9 #### [facility] CLIA [id number] [address] [place] [address] [place] Glucose [Mass/Vol] 82 mg/dL Normal 74-99 [facility] Comment on above: Order Comment: Morena barragan Type: BLOOD SPECIMEN Ordering Facility: [facility] Address: [address] [place] [address] Result Comment: The [place] Diabetes Association (ADA) provides guidance for cutoff values for fasting glucose and random glucose. The ADA defines fasting as no caloric intake for at least 8 hours. Fasting plasma glucose results between 100 to 125 mg/dL indicate increased risk for diabetes (prediabetes). Fasting plasma glucose results greater than or equal to 126 mg/dL meet the criteria for diagnosis of diabetes. In the absence of unequivocal hyperglycemia, results should be confirmed by repeat testing. In a patient with classic symptoms of hyperglycemia or hyperglycemic crisis, random plasma glucose results greater than or equal to 200 mg/dL meet the criteria for diagnosis of diabetes. Reference: Standards of Medical Care in Diabetes 2016, [place] Diabetes Association. Diabetes Care. 2016.39(Suppl 1). Performed By: #### D DENNISE, 36127-0 #### [facility] CLIA [id number] [address] [place] [address] [place] Potassium [Moles/Vol] 5.0 mmol/L Normal 3.7-5.1 [facility] Comment on above: Order Comment: Speci men Type: BLOOD SPECIMEN Ordering Facility: [facility] Address: [address] Performed By: #### D NAAB, 51089-1 #### [facility] CLIA [id number] [address] [place] [address] [place] Protein [Mass/Vol] 6.8 g/dL Normal 6.3-8.0 [facility] Comment on above: Order Comment: Speci men Type: BLOOD SPECIMEN Ordering Facility: [facility] Address: [address] [place] [address] Performed By: #### D NAAB, 20335-3 #### [facility] CLIA [id number] [address] [place] [address] [place] Sodium [Moles/Vol] 140 mmol/L Normal 136-144 [facility] Comment on above: Order Comment: Speci men Type: BLOOD SPECIMEN Ordering Facility: [facility] Address: [address] [place], [place] [address] Performed By: #### D NAAB, 33423-3 #### [facility] CLIA [id number] [address] [place] [address] [place] Urea nitrogen [Mass/Vol] 24 mg/dL High 7-21 [facility] Comment on above: Order Comment: Speci men Type: BLOOD SPECIMEN Ordering Facility: [facility] Address: [address] Performed By: #### D NAAB, 26030-5 #### [facility] CLIA [id number] [address] [place] [address] [place] Cyclic citrullinated peptide IgG Qnon 02-04-2023 CCP ANTIBODY IGG QUALITATIVE Negative Normal Negative [facility] Comment on above: Order Comment: Speci men Type: BLOOD SPECIMEN Ordering Facility: [facility] Address: [address] [place], [place] [address] Performed By: #### D NAAB, 88921-6 #### [facility] CLIA [id number] [address] [place] [address] [place] DNA ANTIBODY DS BLDon 2022 DNA ANTIBODY <12 Normal <30 [facility] Comment on above: Order Comment: Speci men Type: BLOOD SPECIMEN Ordering Facility: [facility] Address: [address] [place], [place] [address] Result Comment: Nega tive for ds DNA Antibodies. <30 IU/mL Negative 30-74 IU/mL Equivocal >74 IU/mL Positive Performed By: #### D NAAB, 85422-4 #### [facility] CLIA [id number] [address] [place] [address] [place] PROTEIN CREATININE RATIOon 0 02-04-2023 Protein/Creatinine (U) [Mass ratio] 0.08 mg/mg <0.15 mg/mg [facility] PTH-Intact SerPl-mCncon - Parathyrin.intact [Mass/Vol] 47 pg/mL Normal 15-65 [facility] Comment on above: Order Comment: Speci men Type: BLOOD SPECIMEN Ordering Facility: [facility] Address: [address] [place] [address] Performed By: #### D NAAB, 96920-6 #### [facility] CLIA [id number] [address] [place] [address] [place] Prot/Creat Uron 02-04-2023 Protein/Creatinine (U) [Mass ratio] 0.08 mg/mg Normal <0.15 [facility] Comment on above: Order Comment: Speci men Type: BLOOD SPECIMEN Ordering Facility: [facility] Address: [address] [place], [place] [address] Result Comment: Adul t Proteinuria Categories: <0.15 mg/mg is considered normal to mildly increased 0.15 - 0.50 mg/mg is considered moderately increased >0.50 mg/mg is considered severely increased KDIGO. (2013). KDIGO 2012 Clinical Practice Guideline for the Evaluation and Management of Chronic Kidney Disease. Official Journal of the International Society of Nephrology, 3(1), 1-150. Performed By: #### [place] NAAB, 35430-2 #### [facility] CLIA [id number] [address] [place] Protein/Creatinine (U) [Mass ratio]on 02-04-2023 Creatinine (U) [Mass/Vol] 133.7 mg/dL 20.0 - 300.0 mg/dL [facility] Protein (U) [Mass/Vol] 11 mg/dL 0 - 2 0 mg/dL [facility] Creatinine (U) [Mass/Vol] 133.7 mg/dL Normal 20.0-300.0 [facility] Comment on above: Order Comment: Speci men Type: BLOOD SPECIMEN Ordering Facility: [facility] Address: [address] [place] [place] [address] Performed By: #### [place]ille NAAB, 28521-4 #### [facility] CLIA [id number] [address] [place] [address] [place] [facility] Protein (U) [Mass/Vol] 11 mg/dL Normal 0-20 [facility] Comment on above: Order Comment: Speci men Type: BLOOD SPECIMEN Ordering Facility: [facility] Address: [address] [address] Performed By: #### D NAAB, 94063-5 #### [facility] CLIA [id number] [facility] [place] [address] [place] RHEUMATOID FACTOR BLon 02-04 Rheumatoid factor Qn <16 IU/mL [facility] Rheumatoid fact SerPl-aCncon 02-04-2023 Rheumatoid factor Qn [IU]/mL Normal <16 [facility] Comment on above: Order Comment: Speci men Type: BLOOD SPECIMEN Ordering Facility: [facility] Address: [address] Performed By: #### D NAAB, 48512-3 #### [facility] CLIA [id number] [address] STATES OF [facility] Urinalysis complete panel (U )on 02-04-2023 Bacteria LM.HPF (Urine sed) [#/Area] Rare Abnormal None Seen /HPF [facility] Bilirubin Ql (U) Negative Negative [facility] Clarity (Unsp spec) Clear Clear [facility] Color (U) Yellow Yellow [facility] Epithelial cells LM.HPF (Urine sed) [#/Area] Few [facility] Glucose Test strip (U) [Mass/Vol] Negative Trace, Negative [facility] Hemoglobin Ql (U) Negative Negative, Trace [facility] Hyaline casts (Urine sed) [#/Area] /[LPF] Abnormal 0 /LPF [facility] Ketones Ql (U) Negative Trace, Negative [facility] Leukocyte esterase Test strip Ql (U) 250 Bailey/uL Abnormal Negative, 25 Bailey/uL [facility] Nitrite Ql (U) 1+ Abnormal Negative [facility] pH (U) 5.5 [pH] 5.0 - 8.0 [facility] Protein (U) [Mass/Vol] 1+ Abnormal Trace , Negative [facility] RBC LM.HPF (Urine sed) [#/Area] 0-3 /HPF 0-3 /HPF [facility] Specific gravity (U) [Rel density] 1.018 1.005 - 1.030 [facility] Urobilinogen Ql (U) Negative Negative [facility] WBC LM.HPF (Urine sed) [#/Area] /[HPF] Abnormal 0-5 /HPF [facility] Bacteria LM.HPF (Urine sed) [#/Area] Rare Abnormal None Seen [facility] Comment on above: Order Comment: Speci men Type: BLOOD SPECIMEN Ordering Facility: [facility] Address: [address] [id number] Performed By: #### D NAAB, 99071-6 #### [facility] CLIA [id number] [address] [place] [address] [place] Bilirubin Ql (U) Negative Normal Negative [facility] Comment on above: Order Comment: Speci men Type: BLOOD SPECIMEN Ordering Facility: [facility] Address: [address] [address] Performed By: #### D NAAB, 26384-6 #### [facility] CLIA [id number] [address] [place] [address] [place] Clarity (Unsp spec) Clear Normal Clear [facility] Comment on above: Order Comment: Speci men Type: BLOOD SPECIMEN Ordering Facility: [facility] Address: [address] [address] Performed By: #### D NAAB, 48951-1 #### [facility] CLIA [id number] [address] [place] [address] [place] Color (U) Yellow Normal Yellow [facility] Comment on above: Order Comment: Speci men Type: BLOOD SPECIMEN Ordering Facility: [facility] Address: [address] Performed By: #### D NAAB, 23864-5 #### [facility] CLIA [id number] [address] [place] [address] [place] Epithelial cells LM.HPF (Urine sed) [#/Area] Few Normal [facility] Comment on above: Order Comment: Speci men Type: BLOOD SPECIMEN Ordering Facility: [facility] Address: [address] Performed By: #### D NAAB, 85467-2 #### [facility] CLIA [id number] [address] [place] [address] [place] Glucose Test strip (U) [Mass/Vol] Negative Normal Trace, Negative [facility] Comment on above: Order Comment: Speci men Type: BLOOD SPECIMEN Ordering Facility: [facility] Address: [address] [place], [place] [address] Performed By: #### D NAAB, 61206-6 #### [facility] CLIA [id number] [address] [place] [address] [place] [facility] Hemoglobin Ql (U) Negative Normal Negative, Trace [facility] Comment on above: Order Comment: Speci men Type: BLOOD SPECIMEN Ordering Facility: [facility] Address: [address] [place], [place] [address] Performed By: #### D NAAB, 36608-6 #### [facility] CLIA [id number] [address] [place] [address] [place] Hyaline casts (Urine sed) [#/Area] /[LPF] Abnormal 0 /LPF [facility] Comment on above: Order Comment: Speci men Type: BLOOD SPECIMEN Ordering Facility: [facility] Address: [address] [place], [place] [address] Performed By: #### D NAAB, 52234-5 #### [facility] CLIA [id number] [address] [place] [address] [place] Ketones Ql (U) Negative Normal Trace, Negative [facility] Comment on above: Order Comment: Speci men Type: BLOOD SPECIMEN Ordering Facility: [facility] Address: [address] [place], [place] [address] Performed By: #### D NAAB, 67261-8 #### [facility] CLIA [id number] [address] [place] [address] [place] Leukocyte esterase Test strip Ql (U) 250 Bailey/uL Abnormal Negative, 25 Bailey/uL [facility] Comment on above: Order Comment: Speci men Type: BLOOD SPECIMEN Ordering Facility: [facility] Address: [address] Performed By: #### D NAAB, 95708-5 #### [facility] CLIA [id number] [address] [place] [address] [place] Nitrite Ql (U) 1+ Abnormal Negative [facility] Comment on above: Order Comment: Speci men Type: BLOOD SPECIMEN Ordering Facility: [facility] Address: [address] [place] [address] Performed By: #### D NAAB, 10297-1 #### [facility] CLIA [id number] [address] [place] [address] [place] pH (U) 5.5 [pH] Normal 5.0-8.0 [facility] Comment on above: Order Comment: Speci men Type: BLOOD SPECIMEN Ordering Facility: [facility] Address: [address] [place], [place] [address] Performed By: #### D NAAB, 83208-0 #### [facility] CLIA [id number] [address] [place] [address] [place] Protein (U) [Mass/Vol] 1+ Abnormal Trace , Negative [facility] Comment on above: Order Comment: Speci men Type: BLOOD SPECIMEN Ordering Facility: [facility] Address: [address] [place], [place] [address] Performed By: #### D NAAB, 55602-8 #### [facility] CLIA [id number] [address] [place] [address] [place] RBC LM.HPF (Urine sed) [#/Area] 0-3 /HPF Normal 0-3 /HPF [facility] Comment on above: Order Comment: Speci men Type: BLOOD SPECIMEN Ordering Facility: [facility] Address: [address] [place], [place] [address] Performed By: #### D NAAB, 03592-9 #### [facility] CLIA [id number] [address] [place] [address] [place] Specific gravity (U) [Rel density] 1.018 Normal 1.005-1.030 [facility] Comment on above: Order Comment: Speci men Type: BLOOD SPECIMEN Ordering Facility: [facility] Address: [address] [place] [address] Performed By: #### Neville NAAB, 24186-7 #### [facility] CLIA [id number] [address] [place] [address] [place] Urobilinogen Ql (U) Negative Normal Negative [facility] Comment on above: Order Comment: Speci men Type: BLOOD SPECIMEN Ordering Facility: [facility] Address: [address] [place] [address] Performed By: #### D NAAB, 45036-4 #### [facility] CLIA [id number] [address] [place] [address] [place] WBC LM.HPF (Urine sed) [#/Area] /[HPF] Abnormal 0-5 /HPF [facility] Comment on above: Order Comment: Speci men Type: BLOOD SPECIMEN Ordering Facility: [facility] Address: [address] [place] [address] Performed By: #### Neville NAAB, 22959-7 #### [facility] CLIA [id number] [address] [place] [address] [place] cCP IgG SerPl-aCncon 023 Cyclic citrullinated peptide IgG Qn <15 Normal <20 [facility] Comment on above: Order Comment: Speci men Type: BLOOD SPECIMEN Ordering Facility: [facility] Address: [address] [place] [address] Performed By: #### D NAAB, 80725-1 #### [facility] CLIA [id number] [address] [place] [address] [place] CNOVon 01-22-2023 CNOV Office Visit (PDAVON ) ----- JESUS WOLF ([id number]) 1955 F Date Time Provider Department 01/22/23 10:15 AM BEVERLY FRANCO During your visit today, we recorded the following information about you: Beverly Franco DPM 01/22/2023 11:17 AM Signed SERVICE DATE: January 22, 2023 PCP: Wojciech Treviño MD, DO Subjective Patient ID: Jesus is a 67 year old female. Patient presents for follow-up of ulcerations right foot and associated infection at last visit s/p completing course of dicloxacillin, and utilizing offloading wound healing shoe. Chief Complaint: Patient presents with: Callous: Preulcerative calluses right 1 plantar and 2+3 PAIN EVALUATION 01/15/2023 0948 Pain Level: 3 Pain Location: Foot-Right Description: Dull Duration Units: Minutes Frequency: Intermittent HPI patient is anticoagulated with Eliquis Review of Systems ACTIVE PROBLEM LIST Edema Proteinuria Essential Hypertension Atrial Fibrillation (Hcc) Membranous Glomerulonephritis Vitamin D Deficiency Sle (Systemic Lupus Erythematosus) ([facility]) Fibromyalgia Sleep Apnea Encounter for Long-Term (Current) Use of Other High-Risk Medications Osteoarthritis of ankle and foot HALLUX VALGUS ACQUIRED Other Hammer Toe (Acquired) Enthesopathy of Ankle and Tarsus, Unspecified Lesion of Plantar Nerve Neuralgia, Neuritis, and Radiculitis, Unspecified Foot Pain, Left Other Synovitis and Tenosynovitis, Unspecified Ankle and Foot Osteoarthrosis of Ankle and Foot, Left Synovitis of Left Foot Synovitis of Right Foot Vocal Cord Edema Primary Osteoarthritis of Both Feet Synovitis of Foot Conjunctivitis Keratopathy Obesity, Class III, BMI >= 40 Hypothyroidism Chronic Congestive Heart Failure (Hcc) Status Post Right Hip Replacement S/P Total Hip Arthroplasty Mixed Hyperlipidemia Obesity, Class II, Bmi 35-39.9 Thoracic Ascending Aortic Aneurysm (Hcc) Hypercalcemia Hyperparathyroid (Hcc) PAST MEDICAL HISTORY Diagnosis Date Arrhythmia Atrial fibrillation (HCC) on coumadin Herniated intervertebral disk HTN (hypertension) Hyperlipemia Kidney disease MONI (obstructive sleep apnea) no longer using CPAP since 60 lb weight loss Other acute pancreatitis with uninfected necrosis SLE (systemic lupus erythematosus) ([facility]) Sleep apnea 07/29/2012 PAST SURGICAL HISTORY Procedure Laterality Date APPENDECTOMY CARPAL TUNNEL RIGHT WRIST surgical correction COLONOSCOPY 05/10/2019 [facility] COLONOSCOPY GEN ANES 07/23/2020 Dr. Reinoso/Diverticulosis/Hemo rrhoids/ Ulcerative Colitis/Rpt in 2 yrs. EGD EUS 01/11/2020 [facility] LASIK Right prior to 1999 MRI PANC/JEANIE WO/W IVCON 12/20/2019 [facility] CYSTECTOMY PAST SURGICAL HISTORY OF 07/2013 bilateral foot procedure, Sherry PAST SURGICAL HISTORY OF Ablation X2 TONSILLECTOMY HX FAMILY HISTORY Problem Relation Age of Onset Alzheimer's Disease Father Hypertension Father Cataract Mother Hypertension Mother Colon Cancer Mother Cataract Sister Hypertension Sister Colon Cancer Paternal Uncle Social History Tobacco Use Smoking status: Never Smokeless tobacco: Never Vaping Use Vaping Use: Never used Substance Use Topics Alcohol use: Yes Comment: very rare Drug use: No Comment: denies tx for drug/alcohol abuse in the past. ALLERGIES Allergen Reactions Dofetilide Other: See Comments, Anaphylaxis V-tach Sulfa (Sulfonamide * Vomiting total body swelling and kidney shut down, body aches and rash Contrast Dye Other: See Comments (Deep seafood) hot flashes, sweating. Codeine Other: See Comments severe headaches Compazine [Prochlor* Other: See Comments loss control of left side of face Tetnus [Tetanus Vac* Other: See Comments red spot in area of shot MEDICATIONS: colestipol (COLESTID) 1 gram tabletTAKE 2 TABLETS BY MOUTH TWICE A DAYDisp: 120 tabletRfl: 3 ELIQUIS 5 mg tab(s)Take 5 mg by mouth twice daily.Disp: Rfl: cholestyramine-sucrose (QUESTRAN) 4 gram powderTake 4 g by mouth three times daily with meals.Disp: Rfl: vancomycin (VANCOCIN HCL) 125 mg capsuleTake 1 capsule by mouth four times daily for 14 days, THEN 1 capsule twice daily for 7 days, THEN 1 capsule once daily for 7 days, THEN 1 capsule every other day in the morning for 14 days.Disp: 84 capsuleRfl: 0 ferrous sulfate (IRON) 325 mg (65 mg iron) tabletTake 1 tablet by mouth once daily.Disp: 90 tabletRfl: [address] (PROTONIX) 40 mg tabletTake 1 tablet by mouth twice daily.Disp: 60 tabletRfl: 3 alendronate (FOSAMAX) 70 mg tabletTake 1 tablet by mouth one time a week. In the morning with a full glass of water, on an empty stomach. Do not take anything else by mouth or lie down for the next 30 minutes.Disp: 12 tabletRfl: 3 Mesalamine (LIALDA) 1.2 gram EC tabletTake 4 tablets by mouth once daily (more content not included)... Normal [facility] CNOVon 01-08-2023 CNOV Office Visit (PDAVON ) ----- JESUS WOLF ([id number]) 1955 F Date Time Provider Department 01/08/23 1:40 PM BEVERLY FRANCO During your visit today, we recorded the following information about you: Beverly Franco DPM 01/08/2023 2:18 PM Signed SERVICE DATE: January 08, 2023 PCP: Wojciech Treviño MD, DO Subjective Patient ID: Jesus is a 67 year old female. Patient presents today and states that she has sores on the bottom of her right second and third toes that have also become red and swollen. Patient indicates that although she normally sees Dr. Cervantes, when she called to make an appointment she was told by the attendant that he does not treat infections, only ingrown nails; she states that she knows better because he has been her doctor for a long time. Chief Complaint: Patient presents with: Callous: Right 1,2,3 PAIN EVALUATION 01/07/2023 1707 Pain Level: 3 Pain Location: Foot-Right Description: Sore Duration Units: Minutes Frequency: Intermittent HPI The second toe site began about a week ago, the third toe site began about 2 weeks ago. Patient is anticoagulated with Eliquis. No treatment has been attempted. Denies fever, chills. TREATMENTS PRIOR TO INITIAL CONSULT: None Review of Systems ACTIVE PROBLEM LIST Edema Proteinuria Essential Hypertension Atrial Fibrillation (Hcc) Membranous Glomerulonephritis Vitamin D Deficiency Sle (Systemic Lupus Erythematosus) (Hcc) Fibromyalgia Sleep Apnea Encounter for Long-Term (Current) Use of Other High-Risk Medications Osteoarthritis of ankle and foot HALLUX VALGUS ACQUIRED Other Hammer Toe (Acquired) Enthesopathy of Ankle and Tarsus, Unspecified Lesion of Plantar Nerve Neuralgia, Neuritis, and Radiculitis, Unspecified Foot Pain, Left Other Synovitis and Tenosynovitis, Unspecified Ankle and Foot Osteoarthrosis of Ankle and Foot, Left Synovitis of Left Foot Synovitis of Right Foot Vocal Cord Edema Primary Osteoarthritis of Both Feet Synovitis of Foot Conjunctivitis Keratopathy Obesity, Class III, BMI >= 40 Hypothyroidism Chronic Congestive Heart Failure (Hcc) Status Post Right Hip Replacement S/P Total Hip Arthroplasty Mixed Hyperlipidemia Obesity, Class II, Bmi 35-39.9 Thoracic Ascending Aortic Aneurysm (Hcc) Hypercalcemia Hyperparathyroid (Hcc) PAST MEDICAL HISTORY Diagnosis Date Arrhythmia Atrial fibrillation (HCC) on coumadin Herniated intervertebral disk HTN (hypertension) Hyperlipemia Kidney disease MONI (obstructive sleep apnea) no longer using CPAP since 60 lb weight loss Other acute pancreatitis with uninfected necrosis SLE (systemic lupus erythematosus) (HCC) Sleep apnea 07/29/2012 PAST SURGICAL HISTORY Procedure Laterality Date APPENDECTOMY CARPAL TUNNEL RIGHT WRIST surgical correction COLONOSCOPY 05/10/2019 [facility] COLONOSCOPY GEN ANES 07/23/2020 Dr. Reinoso/Diverticulosis/Hemo rrhoids/ Ulcerative Colitis/Rpt in 2 yrs. EGD EUS 01/11/2020 [facility] LASIK Right prior to 1999 MRI PANC/JEANIE WO/W IVCON 12/20/2019 [facility] CYSTECTOMY PAST SURGICAL HISTORY OF 07/2013 bilateral foot procedure, Sherry PAST SURGICAL HISTORY OF Ablation X2 TONSILLECTOMY HX FAMILY HISTORY Problem Relation Age of Onset Alzheimer's Disease Father Hypertension Father Cataract Mother Hypertension Mother Colon Cancer Mother Cataract Sister Hypertension Sister Colon Cancer Paternal Uncle Social History Tobacco Use Smoking status: Never Smokeless tobacco: Never Vaping Use Vaping Use: Never used Substance Use Topics Alcohol use: Yes Comment: very rare Drug use: No Comment: denies tx for drug/alcohol abuse in the past. ALLERGIES Allergen Reactions Dofetilide Other: See Comments, Anaphylaxis V-tach Sulfa (Sulfonamide * Vomiting total body swelling and kidney shut down, body aches and rash Contrast Dye Other: See Comments (Deep seafood) hot flashes, sweating. Codeine Other: See Comments severe headaches Compazine [Prochlor* Other: See Comments loss control of left side of face Tetnus [Tetanus Vac* Other: See Comments red spot in area of shot MEDICATIONS: dicloxacillin (DYNAPEN) 500 mg capsuleTake 1 capsule by mouth four times daily.Disp: 28 capsuleRfl: 0 vancomycin (VANCOCIN HCL) 125 mg capsuleTake 1 capsule by mouth four times daily for 14 days, THEN 1 capsule twice daily for 7 days, THEN 1 capsule once daily for 7 days, THEN 1 capsule every other day in the morning for 14 days.Disp: 84 capsuleRfl: 0 ferrous sulfate (IRON) 325 mg (65 mg iron) tabletTake 1 tablet by mouth once daily.Disp: 90 tabletRfl: [address] (PROTONIX) 40 mg tabletTake 1 tablet by mouth twice daily.Disp: 60 tabletRfl: 3 colestipol (COLESTID) 1 gram tabletTake 2 tablets by mouth twice daily.Disp: 120 (more content not included)... Normal [facility] C diff Tox gens Stl Ql RAVIN+p robeon 12-25-2022 C. difficile toxin genes RAVIN+probe Ql (Stl) Positive Abnormal Negative for C. difficile toxin by PCR [facility] Comment on above: Order Comment: Speci men Type: BLOOD SPECIMEN Ordering Facility: [facility] Address: [address] [place], [place] [address] Result Comment: A po sitive PCR result may indicate C.difficile infection or colonization. The positive predictive value of this test for C.difficile infection is highest for patients with clinically significant diarrhea (>=3 unformed stools in 24h) who do not have an alternative explanation (e.g., recent receipt of laxatives). Toxin EIA testing will also be performed as recommended by IDSA clinical practice guidelines for institutions without pre-agreed criteria for specimen submission. Performed By: #### D NAAB, 35042-3 #### [facility] CLIA [id number] [address] [facility] [address] [place] C. DIFFICILE TOXIN BY EIAon 12-25-2022 C. difficile toxin A+B IA Ql (Stl) Not detected Normal Negative for C. difficile toxin [facility] Comment on above: Order Comment: Speci men Type: BLOOD SPECIMEN Ordering Facility: [facility] Address: [address] [place] [address] Result Comment: Toxi n EIA is less sensitive than cell cytotoxin and PCR assays. Clinical correlation of PCR positive/toxin EIA negative results is required to distinguish C. difficle colonization from disease. Performed By: #### D NAAB, 78618-4 #### [facility] CLIA [id number] [address] [place] [address] [place] Calprotectin Stl-nton - Calprotectin (Stl) [Mass/Mass] 468.0 mg/kg High 0-50 [facility] Comment on above: Order Comment: Speci men Type: BLOOD SPECIMEN Ordering Facility: [facility] Address: [address] [place] [address] Result Comment: INTE RPRETIVE INFORMATION: Calprotectin, Fecal <50.0 mg/kg : Normal 50.0-120.0 mg/kg: Borderline. Test should be re-evaluated in 4-6 wks. >120.0 mg/kg: Abnormal Performed By: #### D NAAB, 23853-9 #### [facility] CLIA [id number] [address] [place] [address] [place] G lamblia+Cryptosp Ag Stl Ql IAon 12-25-2022 G. lamblia+Cryptosporidiu m sp Ag IA Ql (Stl) CRYPTOSPORIDIUM ANTIGEN BY EIA: Negative for Cryptosporidium by EIA. GIARDIA ANTIGEN BY EIA: Negative for Giardia lamblia by EIA. Normal [facility] Comment on above: Performed By: #### 4 8059-0 ####[facility] [id number] [place] [address] [place] Gastrointestinal pathogens i dentified RAVIN+probe Nom (Stl)on 12-25-2022 Campylobacter sp DNA RAVNI+probe Nom (Unsp spec) Not detected Normal Not Detected [facility] Comment on above: Order Comment: Speci men Type: BLOOD SPECIMEN Ordering Facility: [facility] Address: [address] [place], [place] [address] Performed By: #### D NAAB, 21828-1 #### [facility] CLIA [id number] [address] [place] Salmonella sp DNA RAVIN+probe Ql (Unsp spec) Not detected Normal Not Detected [facility] Comment on above: Order Comment: Speci men Type: BLOOD SPECIMEN Ordering Facility: [facility] Address: [address] [place] [address] Performed By: #### D NAAB, 21689-3 #### [facility] CLIA [id number] [address] [place] [address] [place] Shiga toxin stx gene RAVIN+probe Nom (Unsp spec) Not detected Normal Not Detected [facility] Comment on above: Order Comment: Speci men Type: BLOOD SPECIMEN Ordering Facility: [facility] Address: [address] [place] [address] Performed By: #### D NAAB, 56245-5 #### [facility] CLIA [id number] [address] [place] [address] [place] Shigella sp DNA RAVIN+probe Ql (Unsp spec) Not detected Normal Not Detected [facility] Comment on above: Order Comment: Speci men Type: BLOOD SPECIMEN Ordering Facility: [facility] Address: [address] Performed By: #### D NAAB, 64861-1 #### [facility] CLIA [id number] [address] [place] [address] [place] PANC ELASTASE, FECALon 12-25 PANC ELASTASE, FECAL 481 ug/g Normal >=100 [facility] Comment on above: Order Comment: Speci men Type: BLOOD SPECIMEN Ordering Facility: [facility] Address: [address] [place] [address] Result Comment: REFE RENCE INTERVAL: Pancreatic Elastase Fecal by Immunoassay Less than 100 ug/g............Severe insufficiency 100 - 199 ug/g................Moderate insufficiency 200 ug/g or greater...........Normal INTERPRETIVE INFORMATION: Pancreatic Elastase Fecal by Immunoassay Reference intervals do not apply for infants less than one month old. Performed by [facility], [address] [place] [id number] [email or web address], Michael Amanda MD, PHD, Lab. Director Performed By: #### D NAA, 29743-8 #### [facility] CLIA [id number] [address] [place], [place] [address] [facility] CNPNon 11-10-2022 CNPN Telephone (RHEUMN) ----- JESUS WOLF ([id number]) 1955 F Date Time Provider Department 11/10/22 EVELIN ABEL During your visit today, we recorded the following information about you: Shantelle Howe 11/10/2022 4:20 PM Signed Received outside medical records from [facility] DOS: 11/10/22 scanned into pt chart for review. Allergies As of Date: 11/10/2022 Noted Allergy Reaction DOFETILIDE 03/15/2020 14 - Other: See Comments 10 - Anaphylaxis Comments: V-tach SULFA (SULFONAMIDE ANTIBIOTICS) 02/21/2010 11 - Vomiting Comments: total body swelling and kidney shut down, body aches and rash CONTRAST DYE 08/28/2010 14 - Other: See Comments Comments: (Deep seafood) hot flashes, sweating. CODEINE 02/21/2010 14 - Other: See Comments Comments: severe headaches COMPAZINE (PROCHLORPERAZINE EDISY*02/21/2010 14 - Other: See Comments Comments: loss control of left side of face TETNUS (TETANUS VACCINES AND TOXO*02/21/2010 14 - Other: See Comments Comments: red spot in area of shot Date Reviewed: 10/27/2022 Reviewed by: Albino Underwood RN - Fully Assessed Reason for Visit: Received Outside Medical Records [[id number]] Cmt: Eye report Prescriptions as of 11/10/2022 - pantoprazole DR (PROTONIX) 40 mg tablet Take 1 tablet by mouth twice daily. - vancomycin (VANCOCIN HCL) 125 mg capsule Take 1 capsule by mouth four times daily for 14 days, THEN 1 capsule twice daily for 7 days, THEN 1 capsule once daily for 7 days, THEN 1 capsule every other day in the morning for 14 days. - colestipol (COLESTID) 1 gram tablet Take 2 tablets by mouth twice daily. - alendronate (FOSAMAX) 70 mg tablet Take 1 tablet by mouth one time a week. In the morning with a full glass of water, on an empty stomach. Do not take anything else by mouth or lie down for the next 30 minutes. - Mesalamine (LIALDA) 1.2 gram EC tablet Take 4 tablets by mouth once daily. - acetaminophen (TYLENOL) 500 mg tablet Take 1 tablet by mouth every 4 hours as needed for pain. - calcium carbonate (TUMS) 500 mg chew Take 1 tablet by mouth every hour as needed (mouth or hand numbness or tingling). - zhakhwp-vlzpambrx-gcznamk D3 500 mg-5 mcg (200 unit) per tablet Take 1 tablet by mouth three times daily. - MV with Efa-Ptkddfop-Bmrwca (CENTRUM SILVER) 0.4 mg-300 mcg- 250 mcg tab Take 1 tablet by mouth once daily. - mycophenolate Mofetil (CELLCEPT) 500 mg tablet take 1 tablet by mouth daily - celecoxib (CELEBREX) 200 mg capsule Take 200 mg by mouth twice daily. - hydrOXYchloroQUINE (PLAQUENIL) 200 mg tablet take 1 tablet by mouth twice a day with food - metoprolol succinate ER (TOPROL XL) 50 mg 24 hr tablet 50mg in am and 100mg in pm. - ferrous sulfate (IRON) 325 mg (65 mg iron) tablet Take 1 tablet by mouth once daily. - sucralfate (CARAFATE) 100 mg/mL suspension Take 10 mL by mouth four times daily. - atorvastatin (LIPITOR) 40 mg tablet Take 1 tablet by mouth once daily. - Bifidobacterium infantis (ALIGN ORAL) Take by mouth once daily. - belimumab (BENLYSTA INTRAVENOUS) Inject intravenously. Patient reports she receives infusion every 3 months - venlafaxine ER (EFFEXOR XR) 150 mg 24 hr capsule Take 1 capsule by mouth once daily. - levothyroxine (SYNTHROID) 75 mcg tablet Take 75 mcg by mouth once daily. - furosemide (LASIX) 40 mg tablet Take 40 mg by mouth once daily. - busPIRone (BUSPAR) 10 mg tablet Take 10 mg by mouth daily at bedtime. - spironolactone (ALDACTONE) 50 mg tablet Take 50 mg by mouth once daily. - Cholecalciferol, Vitamin D3, 2,000 unit cap Take by mouth once daily. - vitamin b complex(B COMPLEX TAB) one daily - multivitamins w-minerals/lut(CENTRUM SILVER TAB) Take one(1) tablet daily. Facility-Administered Medications as of 11/10/2022 - perflutren lipid microspheres 1.3 mL in NaCl (PF) 0.9% 10 mL injection (DEFINITY) - sodium chloride 0.9 % (flush) 10 mL (BD POSIFLUSH) Problem List As Of Date 11/10/2022 Noted Resolved Edema [R60.9] 02/22/2010 Proteinuria [R80.9] 02/22/2010 Essential hypertension [I10] 02/22/2010 Atrial fibrillation (HCC) [I48.91] 02/22/2010 Membranous Glomerulonephritis [N05.2] 03/15/2010 Vitamin D Deficiency [E55.9] 05/03/2010 SLE (systemic lupus erythematosus) (HCC) [M32.9]07/16/2011 Fibromyalgia [M79.7] 03/10/2012 Sleep apnea [G47.30] 07/29/2012 Encounter for long-term (current) use of other *11/10/2012 Osteoarthritis of ankle and foot [M19.079] 01/02/2014 HALLUX VALGUS ACQUIRED [M20.10] 01/02/2014 Other hammer toe (acquired) [M20.40] 01/02/2014 Enthesopathy of ankle and tarsus, unspecified [*01/02/2014 Lesion of plantar nerve [G57.60] 01/02/2014 Neuralgia, neuritis, and radiculitis, unspecifi*01/02/2014 Foot pain, left [M79.672] 08/07/2015 Osteoarthrosis, localized, secondary, ankle or *08/07/2015 04/02/2020 Other synovitis and tenosynovitis, unspecified *07/18 (more content not included)... Normal [facility] BRIEF OP NOTon 10-27-2022 BRIEF OP NOT HNO ID: [id number] Author: Dalila Cervantes DPM Service: Podiatry Author Type: Physician Type: Brief Op Note Filed: 10/27/2022 1:39 PM Note Text: BRIEF OPERATIVE / PROCEDURE NOTE LOG ID: [id number] SURGERY/PROCEDURE DATE: 10/27/2022 INCISION/PROCEDURE START TIME: 1:25 PM INCISION CLOSE/PROCEDURE END TIME: 1:36 PM SURGEON(S)/PROCEDURALIST( S) AND MATLAB DEVELOPER(S): Surgeon(s) and Role: * Dalila Cervantes DPM - Primary * Ramesh Justice DPM - Resident - Assisting No Additional Staff SURGERY/PROCEDURE(S): Fluoroscopic guidance for needle placement both feet Intra-articular local anesthetic cortisone injection second through fourth tarsometatarsal joints both feet ANESTHESIA: Local consisting of a mixture of 4 cc of half percent Marcaine plain mixed with 1 cc of Kenalog 40 a total of 3.5 cc in the right foot and 4 cc on the left FINDINGS: Consistent with pre-op clinical and radiographic findings. ESTIMATED BLOOD LOSS: 0 ml SPECIMENS: None COMPLICATIONS: None CLOSURE TECHNIQUE: Non-primary PRE-OP/PRE-PROCEDURE DIAGNOSIS: Tarsometatarsal joint osteoarthritis with painful synovitis both feet POST-OP/POST-PROCEDURE DIAGNOSIS: Same as Preop SIGNATURE: Dalila Cervantes DPM PATIENT NAME: Jesus oWlf DATE: October 27, 2022 TIME: 1:38 PM Normal [facility] HISTORY PHYSICALon HISTORY PHYSICAL HNO ID: [id number] Author: Fawn Billy APRN.JOHNATHAN Service: ? Author Type: Nurse Practitioner Type: HANDP Filed: 10/27/2022 1:27 PM Note Text: LOCAL PROCEDURE HISTORY AND PHYSICAL EXAM SERVICE DATE: 10/27/2022 SERVICE TIME: 1:26 PM Provisional Diagnosis/Treatment Plan: FLUOROSCOPIC GUIDANCE FOR NEEDLE PLACEMENT - Bilateral Subjective HPI: This is a 67 year old female who presents with OA bilateral feet MEDICATIONS: Prior to Admission medications as of 10/27/22 1306 Medication Sig Last Dose Taking colestipol (COLESTID) 1 gram tablet Take 2 tablets by mouth twice daily. 10/27/2022 Yes Mesalamine (LIALDA) 1.2 gram EC tablet Take 4 tablets by mouth once daily. 10/27/[address] (PROTONIX) 40 mg tablet Take 1 tablet by mouth twice daily. 10/27/2022 Yes levothyroxine (SYNTHROID) 75 mcg tablet Take 75 mcg by mouth once daily. 10/27/2022 Yes furosemide (LASIX) 40 mg tablet Take 40 mg by mouth once daily. 10/27/2022 Yes vitamin b complex(B COMPLEX TAB) one daily 10/27/2022 Yes alendronate (FOSAMAX) 70 mg tablet Take 1 tablet by mouth one time a week. In the morning with a full glass of water, on an empty stomach. Do not take anything else by mouth or lie down for the next 30 minutes. acetaminophen (TYLENOL) 500 mg tablet Take 1 tablet by mouth every 4 hours as needed for pain. calcium carbonate (TUMS) 500 mg chew Take 1 tablet by mouth every hour as needed (mouth or hand numbness or tingling). scikzct-ttkvpuxbg-pdszdfk D3 500 mg-5 mcg (200 unit) per tablet Take 1 tablet by mouth three times daily. MV with Pms-Zyfyybiv-Cngwyt (CENTRUM SILVER) 0.4 mg-300 mcg- 250 mcg tab Take 1 tablet by mouth once daily. mycophenolate Mofetil (CELLCEPT) 500 mg tablet take 1 tablet by mouth daily celecoxib (CELEBREX) 200 mg capsule Take 200 mg by mouth twice daily. hydrOXYchloroQUINE (PLAQUENIL) 200 mg tablet take 1 tablet by mouth twice a day with food metoprolol succinate ER (TOPROL XL) 50 mg 24 hr tablet 50mg in am and 100mg in pm. ferrous sulfate (IRON) 325 mg (65 mg iron) tablet Take 1 tablet by mouth once daily. sucralfate (CARAFATE) 100 mg/mL suspension Take 10 mL by mouth four times daily. atorvastatin (LIPITOR) 40 mg tablet Take 1 tablet by mouth once daily. Bifidobacterium infantis (ALIGN ORAL) Take by mouth once daily. belimumab (BENLYSTA INTRAVENOUS) Inject intravenously. Patient reports she receives infusion every 3 months venlafaxine ER (EFFEXOR XR) 150 mg 24 hr capsule Take 1 capsule by mouth once daily. busPIRone (BUSPAR) 10 mg tablet Take 10 mg by mouth daily at bedtime. spironolactone (ALDACTONE) 50 mg tablet Take 50 mg by mouth once daily. Cholecalciferol, Vitamin D3, 2,000 unit cap Take by mouth once daily. multivitamins w-minerals/lut(CENTRUM SILVER TAB) Take one(1) tablet daily. ALLERGIES Allergen Reactions Dofetilide Other: See Comments, Anaphylaxis V-tach Sulfa (Sulfonamide * Vomiting total body swelling and kidney shut down, body aches and rash Contrast Dye Other: See Comments (Deep seafood) hot flashes, sweating. Codeine Other: See Comments severe headaches Compazine [Prochlor* Other: See Comments loss control of left side of face Tetnus [Tetanus Vac* Other: See Comments red spot in area of shot Objective PHYSICAL EXAM: The remainder of the physical exam is noncontributory. GENERAL: Alert, no distress, cooperative LUNGS: Lungs clear to auscultation, Good diaphragmatic excursion CARDIAC: Normal S1 and S2; no rubs, murmurs, or gallops BP 137/63 Pulse 74 Temp 36.4 ?C (97.5 ?F) (Temporal) Resp 16 LMP 07/17/2011 (Within Years) SpO2 94% PAIN ASSESSMENT: PAIN EVALUATION No data found in the last 1 encounters. Assessment/Plan Active Problems: Primary osteoarthritis of both feet [M19.071, M19.072] Medication and Non-Pharmacologic VTE Prophylaxis/Anticoagulant s VTE Prophylaxis: N/A SIGNATURE: Fawn Billy APRN.CNP PATIENT NAME: Jesus Wolf DATE: October 27, 2022 TIME: 1:26 PM Normal [facility] HISTORY PHYSICAL HNO ID: [id number] Author: Dalila Cervantes DPM Service: Podiatry Author Type: Physician Type: HANDP Filed: 10/27/2022 1:23 PM Note Text: . HANDP FOR LOCAL ANESTHESIA CARE Patient Name and MRN: JESUS WOLF, [id number] PCP: Wojciech Treviño MD, DO HPI: Jesus Wolf 67 year old female presents for b/l foot injections. PAST MEDICAL HISTORY Diagnosis Date Arrhythmia Atrial fibrillation (HCC) on coumadin Herniated intervertebral disk HTN (hypertension) Hyperlipemia Kidney disease MONI (obstructive sleep apnea) no longer using CPAP since 60 lb weight loss Other acute pancreatitis with uninfected necrosis SLE (systemic lupus erythematosus) (HCC) Sleep apnea 07/29/2012 PAST SURGICAL HISTORY Procedure Laterality Date APPENDECTOMY CARPAL TUNNEL RIGHT WRIST surgical correction COLONOSCOPY 05/10/2019 [facility] COLONOSCOPY GEN ANES 07/23/2020 Dr. Reinoso/Diverticulosis/Hemo rrhoids/ Ulcerative Colitis/Rpt in 2 yrs. EGD EUS 01/11/2020 [facility] LASIK Right prior to 1999 MRI PANC/JEANIE WO/W IVCON 12/20/2019 [facility]VARIAN CYSTECTOMY PAST SURGICAL HISTORY OF 07/2013 bilateral foot procedure, [facility] PAST SURGICAL HISTORY OF 2018,2019 Ablation X2 TONSILLECTOMY HX FAMILY HISTORY Problem Relation Age of Onset Alzheimer's Disease Father Hypertension Father Cataract Mother Hypertension Mother Colon Cancer Mother Cataract Sister Hypertension Sister Colon Cancer Paternal Uncle Social History Tobacco Use Smoking status: Never Smokeless tobacco: Never Vaping Use Vaping Use: Never used Substance Use Topics Alcohol use: Yes Comment: very rare Drug use: No Comment: denies tx for drug/alcohol abuse in the past. Prior to Admission Medications Prescriptions Last Dose Informant Patient Reported? Taking? Bifidobacterium infantis (ALIGN ORAL) Yes No Sig: Take by mouth once daily. Cholecalciferol, Vitamin D3, 2,000 unit cap Patient Yes No Sig: Take by mouth once daily. MV with Mkp-Zielqevv-Wydcna (CENTRUM SILVER) 0.4 mg-300 mcg- 250 mcg tab Yes No Sig: Take 1 tablet by mouth once daily. Mesalamine (LIALDA) 1.2 gram EC tablet No No Sig: Take 4 tablets by mouth once daily. acetaminophen (TYLENOL) 500 mg tablet No No Sig: Take 1 tablet by mouth every 4 hours as needed for pain. alendronate (FOSAMAX) 70 mg tablet No No Sig: Take 1 tablet by mouth one time a week. In the morning with a full glass of water, on an empty stomach. Do not take anything else by mouth or lie down for the next 30 minutes. atorvastatin (LIPITOR) 40 mg tablet No No Sig: Take 1 tablet by mouth once daily. belimumab (BENLYSTA INTRAVENOUS) Yes No Sig: Inject intravenously. Patient reports she receives infusion every 3 months busPIRone (BUSPAR) 10 mg tablet Yes No Sig: Take 10 mg by mouth daily at bedtime. calcium carbonate (TUMS) 500 mg chew No No Sig: Take 1 tablet by mouth every hour as needed (mouth or hand numbness or tingling). newsaih-recabjaip-fozdpzq D3 500 mg-5 mcg (200 unit) per tablet No No Sig: Take 1 tablet by mouth three times daily. celecoxib (CELEBREX) 200 mg capsule Yes No Sig: Take 200 mg by mouth twice daily. colestipol (COLESTID) 1 gram tablet No No Sig: Take 2 tablets by mouth twice daily. ferrous sulfate (IRON) 325 mg (65 mg iron) tablet No No Sig: Take 1 tablet by mouth once daily. furosemide (LASIX) 40 mg tablet Patient Yes No Sig: Take 40 mg by mouth once daily. hydrOXYchloroQUINE (PLAQUENIL) 200 mg tablet No No Sig: take 1 tablet by mouth twice a day with food levothyroxine (SYNTHROID) 75 mcg tablet Yes No Sig: Take 75 mcg by mouth once daily. metoprolol succinate ER (TOPROL XL) 50 mg 24 hr tablet No No Simg in am and 100mg in pm. multivitamins w-minerals/lut(CENTRUM SILVER TAB) Patient Yes No Sig: Take one(1) tablet daily. mycophenolate Mofetil (CELLCEPT) 500 mg tablet No No Sig: take 1 tablet by mouth daily pantoprazole DR (PROTONIX) 40 mg tablet No No Sig: Take 1 tablet by mouth twice daily. spironolactone (ALDACTONE) 50 mg tablet Yes No Sig: Take 50 mg by mouth once daily. sucralfate (CARAFATE) 100 mg/mL suspension No No Sig: Take 10 mL by mouth four times daily. venlafaxine ER (EFFEXOR XR) 150 mg 24 hr capsule No No Sig: Take 1 capsule by mouth once daily. vitamin b complex(B COMPLEX TAB) Patient Yes No Sig: one daily Facility-Administered Medications Last Administration Doses Remaining perflutren lipid microspheres 1.3 mL in NaCl (PF) 0.9% 10 mL injection (DEFINITY) None recorded 1 sodium chloride 0.9 % (flush) 10 mL (BD POSIFLUSH) None recorded 1 ALLERGIES Allergen Reactions Dofetilide Other: See Comments, Anaphylaxis V-tach Sulfa (Sulfonamide * Vomiting total body swelling and kidney shut down, body aches and rash Contrast Dye Other: See Comments (Deep seafood) hot flashes, sweating. Codeine Other: See Comments severe headaches Compazine [Proc (more content not included)... Normal [facility] OPERATIVE NOon 10-27-2022 OPERATIVE NO HNO ID: [id number] Author: Dalila Cervantes DPM Service: Podiatry Author Type: Physician Type: Operative Report Filed: 11/11/2022 1:06 PM Note Text: 10/27/2022 1:36 PM FLUOROSCOPIC GUIDANCE FOR NEEDLE PLACEMENT ARTHROCENTESIS,ASPIRATION AND/OR INJECTION,SMALL JOINT OR BURSA W/O US GUIDANCE KHADIJAH Balbuena DPM [facility] Adia RANDHAWA OPERATIVE REPORT NAME: JESUS WOLF [facility] #: [id number] DATE: 10/27/2022 AGE: 67 SURGEON 1: Dalila Cervantes DPM SURGEON 2: MATLAB DEVELOPER 1: Ramesh Justice DPM OPERATION: 1. Fluoroscopic guidance for needle placement, bilateral feet (CPT 18932). 2. Intra-articular local anesthetic cortisone injection, second through fourth tarsometatarsal joints of both feet (CPT 20419). ANESTHESIA: Local consisting of 4 mL of 0.5% Marcaine plain and mixed with 1 mL of Kenalog 40 for each foot. PREOPERATIVE DIAGNOSIS: Second through fourth tarsometatarsal joint osteoarthritis with painful synovitis, bilateral feet. POSTOPERATIVE DIAGNOSIS: Second through fourth tarsometatarsal joint osteoarthritis with painful synovitis, bilateral feet. OPERATIVE INDICATIONS: This 67-year-old female contacted our office on October 08, 2022 requesting fluoroscopic-guided local anesthetic cortisone injection in both feet in her midfoot tarsometatarsal joints due to recurrence of pain. She has had this done before and would like to proceed with the same procedures and declined further conservative measures. OPERATIVE FINDINGS: Consistent with preop clinical and radiographic examinations. OPERATIVE PROCEDURE: The patient was brought from the preoperative holding area to the OR and left on the gurney. Utilizing the FluoroScan, we marked out her second through fourth tarsometatarsal joints of both feet dorsally with an ink pen. After this was completed, the skin was prepped with both alcohol and painted with Betadine. We then injected approximately 1.5 mL of the mixture of the local anesthetic cortisone into each joint of both feet. The area was cleansed with alcohol. The patient was then discharged from the OR to recovery room and then to home. She will follow up in our office on an as needed basis, pending postprocedure progress. She was transported from OR to recovery room with vital signs stable and vascular status intact to both feet. The procedure was performed in conjunction with the residents, who were present in the operating room today under my direct supervision from skin to skin. START TIME: 1:25 PM. END TIME: 1:36 PM. ESTIMATED BLOOD LOSS: None. DRAINS: None. SPECIMENS: None. PROPHYLAXIS: None. MATERIALS: Local anesthetic mixture as above. COMPLICATIONS: None. CONDITION: Satisfactory. [facility] GILMA [facility] (ACNDACE) ----- JESUS WOLF ([id number]) 1955 F Date Time Provider Department 10/24/22 DALILA CERVANTES During your visit today, we recorded the following information about you: Lisa Ramos 10/24/2022 9:17 AM Signed Spoke to patient and she is scheduled for bilataral injections at [facility] for this 10/27/22 under local. Per patient, she does not need a post-op visit. Allergies As of Date: 10/24/2022 Noted Allergy Reaction DOFETILIDE 03/15/2020 14 - Other: See Comments 10 - Anaphylaxis Comments: V-tach SULFA (SULFONAMIDE ANTIBIOTICS) 02/21/2010 11 - Vomiting Comments: total body swelling and kidney shut down, body aches and rash CONTRAST DYE 08/28/2010 14 - Other: See Comments Comments: (Deep seafood) hot flashes, sweating. CODEINE 02/21/2010 14 - Other: See Comments Comments: severe headaches COMPAZINE (PROCHLORPERAZINE EDISY*02/21/2010 14 - Other: See Comments Comments: loss control of left side of face TETNUS (TETANUS VACCINES AND TOXO*02/21/2010 14 - Other: See Comments Comments: red spot in area of shot Date Reviewed: 08/28/2022 Reviewed by: Sravani Wagoner RN - Fully Assessed Reason for Visit: Surgical Followup [104] Prescriptions as of 10/24/2022 - colestipol (COLESTID) 1 gram tablet Take 2 tablets by mouth twice daily. - alendronate (FOSAMAX) 70 mg tablet Take 1 tablet by mouth one time a week. In the morning with a full glass of water, on an empty stomach. Do not take anything else by mouth or lie down for the next 30 minutes. - Mesalamine (LIALDA) 1.2 gram EC tablet Take 4 tablets by mouth once daily. - acetaminophen (TYLENOL) 500 mg tablet Take 1 tablet by mouth every 4 hours as needed for pain. - calcium carbonate (TUMS) 500 mg chew Take 1 tablet by mouth every hour as needed (mouth or hand numbness or tingling). - wohqssn-arpkyidwy-dksyzpu D3 500 mg-5 mcg (200 unit) per tablet Take 1 tablet by mouth three times daily. - MV with Mra-Tyjdustv-Ibxcex (CENTRUM SILVER) 0.4 mg-300 mcg- 250 mcg tab Take 1 tablet by mouth once daily. - pantoprazole DR (PROTONIX) 40 mg tablet Take 1 tablet by mouth twice daily. - mycophenolate Mofetil (CELLCEPT) 500 mg tablet take 1 tablet by mouth daily - celecoxib (CELEBREX) 200 mg capsule Take 200 mg by mouth twice daily. - hydrOXYchloroQUINE (PLAQUENIL) 200 mg tablet take 1 tablet by mouth twice a day with food - metoprolol succinate ER (TOPROL XL) 50 mg 24 hr tablet 50mg in am and 100mg in pm. - ferrous sulfate (IRON) 325 mg (65 mg iron) tablet Take 1 tablet by mouth once daily. - sucralfate (CARAFATE) 100 mg/mL suspension Take 10 mL by mouth four times daily. - atorvastatin (LIPITOR) 40 mg tablet Take 1 tablet by mouth once daily. - Bifidobacterium infantis (ALIGN ORAL) Take by mouth once daily. - belimumab (BENLYSTA INTRAVENOUS) Inject intravenously. Patient reports she receives infusion every 3 months - venlafaxine ER (EFFEXOR XR) 150 mg 24 hr capsule Take 1 capsule by mouth once daily. - levothyroxine (SYNTHROID) 75 mcg tablet Take 75 mcg by mouth once daily. - furosemide (LASIX) 40 mg tablet Take 40 mg by mouth once daily. - busPIRone (BUSPAR) 10 mg tablet Take 10 mg by mouth daily at bedtime. - spironolactone (ALDACTONE) 50 mg tablet Take 50 mg by mouth once daily. - Cholecalciferol, Vitamin D3, 2,000 unit cap Take by mouth once daily. - vitamin b complex(B COMPLEX TAB) one daily - multivitamins w-minerals/lut(CENTRUM SILVER TAB) Take one(1) tablet daily. 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.2] 03/15/2010 Vitamin D Deficiency [E55.9] 05/03/2010 SLE (systemic lupus erythematosus) (HCC) [M32.9]07/16/2011 Fibromyalgia [M79.7] 03/10/2012 Sleep apnea [G47.30] 07/29/2012 Encounter for long-term (current) use of other *11/10/2012 Osteoarthritis of ankle and foot [M19.079] 01/02/2014 HALLUX VALGUS ACQUIRED [M20.10] 01/02/2014 Other hammer toe (acquired) [M20.40] 01/02/2014 Enthesopathy of ankle and tarsus, unspecified [*01/02/2014 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 Normal [facility] Sarita 10-21-2022 JOHNATHANN Telephone (CYNTHIAORR) ----- JESUS WOLF ([id number]) 1955 F Date Time Provider Department 10/21/22 DALILA CERVANTES During your visit today, we recorded the following information about you: Lisa Ibrahimnett 10/21/2022 3:59 PM Signed Spoke to patient and let her know that I will call her to schedule the procedure Dr. Cervantes offered as soon as I receive the surgery information from him. In the meantime, I provided my direct number in surgery scheduling so she and I can keep in touch [phone]. Allergies As of Date: 10/21/2022 Noted Allergy Reaction DOFETILIDE 03/15/2020 14 - Other: See Comments 10 - Anaphylaxis Comments: V-tach SULFA (SULFONAMIDE ANTIBIOTICS) 02/21/2010 11 - Vomiting Comments: total body swelling and kidney shut down, body aches and rash CONTRAST DYE 08/28/2010 14 - Other: See Comments Comments: (Deep seafood) hot flashes, sweating. CODEINE 02/21/2010 14 - Other: See Comments Comments: severe headaches COMPAZINE (PROCHLORPERAZINE EDISY*02/21/2010 14 - Other: See Comments Comments: loss control of left side of face TETNUS (TETANUS VACCINES AND TOXO*02/21/2010 14 - Other: See Comments Comments: red spot in area of shot Date Reviewed: 08/28/2022 Reviewed by: Sravani Wagoner RN - Fully Assessed Reason for Visit: Surgical Followup [104] Prescriptions as of 10/21/2022 - colestipol (COLESTID) 1 gram tablet Take 2 tablets by mouth twice daily. - alendronate (FOSAMAX) 70 mg tablet Take 1 tablet by mouth one time a week. In the morning with a full glass of water, on an empty stomach. Do not take anything else by mouth or lie down for the next 30 minutes. - Mesalamine (LIALDA) 1.2 gram EC tablet Take 4 tablets by mouth once daily. - acetaminophen (TYLENOL) 500 mg tablet Take 1 tablet by mouth every 4 hours as needed for pain. - calcium carbonate (TUMS) 500 mg chew Take 1 tablet by mouth every hour as needed (mouth or hand numbness or tingling). - ejlwvvi-qefkrvcfm-xdymhbi D3 500 mg-5 mcg (200 unit) per tablet Take 1 tablet by mouth three times daily. - MV with Xmg-Mzilxjkr-Sfmtsz (CENTRUM SILVER) 0.4 mg-300 mcg- 250 mcg tab Take 1 tablet by mouth once daily. - pantoprazole DR (PROTONIX) 40 mg tablet Take 1 tablet by mouth twice daily. - mycophenolate Mofetil (CELLCEPT) 500 mg tablet take 1 tablet by mouth daily - celecoxib (CELEBREX) 200 mg capsule Take 200 mg by mouth twice daily. - hydrOXYchloroQUINE (PLAQUENIL) 200 mg tablet take 1 tablet by mouth twice a day with food - metoprolol succinate ER (TOPROL XL) 50 mg 24 hr tablet 50mg in am and 100mg in pm. - ferrous sulfate (IRON) 325 mg (65 mg iron) tablet Take 1 tablet by mouth once daily. - sucralfate (CARAFATE) 100 mg/mL suspension Take 10 mL by mouth four times daily. - atorvastatin (LIPITOR) 40 mg tablet Take 1 tablet by mouth once daily. - Bifidobacterium infantis (ALIGN ORAL) Take by mouth once daily. - belimumab (BENLYSTA INTRAVENOUS) Inject intravenously. Patient reports she receives infusion every 3 months - venlafaxine ER (EFFEXOR XR) 150 mg 24 hr capsule Take 1 capsule by mouth once daily. - levothyroxine (SYNTHROID) 75 mcg tablet Take 75 mcg by mouth once daily. - furosemide (LASIX) 40 mg tablet Take 40 mg by mouth once daily. - busPIRone (BUSPAR) 10 mg tablet Take 10 mg by mouth daily at bedtime. - spironolactone (ALDACTONE) 50 mg tablet Take 50 mg by mouth once daily. - Cholecalciferol, Vitamin D3, 2,000 unit cap Take by mouth once daily. - vitamin b complex(B COMPLEX TAB) one daily - multivitamins w-minerals/lut(CENTRUM SILVER TAB) Take one(1) tablet daily. Facility-Administered Medications as of 10/21/2022 - perflutren lipid microspheres 1.3 mL in NaCl (PF) 0.9% 10 mL injection (DEFINITY) - sodium chloride 0.9 % (flush) 10 mL (BD POSIFLUSH) Problem List As Of Date 10/21/2022 Noted Resolved Edema [R60.9] 02/22/2010 Proteinuria [R80.9] 02/22/2010 Essential hypertension [I10] 02/22/2010 Atrial fibrillation (HCC) [I48.91] 02/22/2010 Membranous Glomerulonephritis [N05.2] 03/15/2010 Vitamin D Deficiency [E55.9] 05/03/2010 SLE (systemic lupus erythematosus) (HCC) [M32.9]07/16/2011 Fibromyalgia [M79.7] 03/10/2012 Sleep apnea [G47.30] 07/29/2012 Encounter for long-term (current) use of other *11/10/2012 Osteoarthritis of ankle and foot [M19.079] 01/02/2014 HALLUX VALGUS ACQUIRED [M20.10] 01/02/2014 Other hammer toe (acquired) [M20.40] 01/02/2014 Enthesopathy of ankle and tarsus, unspecified [*01/02/2014 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 Normal [facility] CULTURE BLOODon 10-01-2022 Microscopic examination of blood, culture Culture Observations: positive aerobic and anaerobic bottles 09/29/22 bcid= s. epi Culture Observations: METHICILLIN RESISTANT STAPH EPIDERMIDIS ISOLATED. PLEASE FOLLOW APPROPRIATE ISOLATION PROCEDURES. Isolate 1 Staphylococcus epidermidis Growth of ORGANISM 1 Staphylococcus epidermidis ANTIBIOTIC M.I.C RX STATUS Beta-Lactamase Pos POS P Cefoxitin Screen Pos POS P Benzylpenicillin >=0.5 R P Oxacillin >=4 R P Ciprofloxacin <=0.5 S P Levofloxacin <=0.12 S P Inducible Clindamycin Resistance Pos POS P Erythromycin >=8 R P Clindamycin <=0.25 R P Quinupristin/Dalfopristin <=0.25 S P Linezolid 1 S P Vancomycin 1 S P Tetracycline 2 S P Rifampicin 1 S P Trimethoprim/Sulfamethoxa zole 20 S P Normal [facility] Comment on above: Performed By: #### L IPA, MG, CMP #### [facility] [address] [place] [address] Dr. Dank Lovelace LACTATE/LACTIC ACIDon 2022 Lactate [Moles/Vol] 1.0 mmol/L Normal 0.4-1.9 [facility] Comment on above: Performed By: #### L IPA, MG, CMP #### [facility] [address] [place] [address] Dr. Dank Lovelace BLOOD CULTURE ID PANELon A. baumannii Not detected Normal NOT DETECTED [facility] Comment on above: Performed By: #### L IPA, MG, CMP #### [facility] [address] [address] [address] Dank Lovelace Bacteriodes fragilis Not detected Normal NOT DETECTED [facility] Comment on above: Performed By: #### L IPA, MG, CMP #### [facility] [address] [address] [address] Dank Lovelace BCID CONTROLS PASSED Normal [facility] Comment on above: Performed By: #### L IPA, MG, CMP #### [facility] [address] [address] [address] Dank ARORADBTHD BLOOD CULTURE BOTTLE INFORMATION [facility] Comment on above: Performed By: #### L IPA, MG, CMP #### [facility] [address] [address] [address] Dank Lovelace BCIDHD1 ANTIMICROBIAL RESIST ANCE GENES [facility] Comment on above: Performed By: #### L IPA, MG, CMP #### [facility] [address] [address] [address] Dank Lovelace BCIDHD2 SEE BELOW [facility] Comment on above: Result Comment: Note : Antimicrobial resitance can occur via multiple mechanisms. A Not Detected result for the [employer] antomicrobial resistance gene assays does not indicate antimicrobial susceptibility. Subculturing is required for species identification and susceptibility testing of isolates. Performed By: #### L IPA, MG, CMP #### [facility] [address] [address] [address] Dank Lovelace BCIDHD3 Positive [facility] Comment on above: Performed By: #### L IPA, MG, CMP #### [facility] [address] [address] [address] Dank ARORADHD4 Negative [facility] Comment on above: Performed By: #### L IPA, MG, CMP #### [facility] [address] [place] [address] Dr. Dank ARORADHD5 YEAST Normal [facility] Comment on above: Performed By: #### L IPA, MG, CMP #### [facility] [address] [address] [address] Dank Lovelace Bottle Set: Set 1 Normal [facility] Comment on above: Performed By: #### L IPA, MG, CMP #### [facility] [address] [place] [address] Dr. Dank Lovelace Bottle: Aerobic Normal [facility] Comment on above: Performed By: #### L IPA, MG, CMP #### [facility] [address] [place] [address] Dr. Dank Lovelace C. neoformans/gattii Not detected Normal NOT DETECTED [facility] Comment on above: Performed By: #### L IPA, MG, CMP #### [facility] [address] [place] [address] Dr. Dank Lovelace Nurys albicans Not detected Normal NOT DETECTED [facility] Comment on above: Performed By: #### L IPA, MG, CMP #### [facility] [address] [place] [address] Dr. Dank Lovelace Nurys auris Not detected Normal NOT DETECTED [facility] Comment on above: Performed By: #### L IPA, MG, CMP #### [facility] [address] [place] [address] Dr. Dank Lovelace Nurys glabrata Not detected Normal NOT DETECTED [facility] Comment on above: Performed By: #### L IPA, MG, CMP #### [facility] [address] [place] [address] Dr. Dank Lovelace Nurys Krusei Not detected Normal NOT DETECTED [facility] Comment on above: Performed By: #### L IPA, MG, CMP #### [facility] [address] [place] [address] Dr. Dank Lovelace Nurys Parapsilosis Not detected Normal NOT DETECTED [facility] Comment on above: Performed By: #### L IPA, MG, CMP #### [facility] [address] [place] [address] Dr. Dank Lovelace Nurys Tropicalis Not detected Normal NOT DETECTED [facility] Comment on above: Performed By: #### L IPA, MG, CMP #### [facility] [address] [place] [address] Dr. Dank Lovelace CTX-M Resistant Gene Not Applicable Normal NOT DETECTED [facility] Comment on above: Performed By: #### L IPA, MG, CMP #### [facility] [address] [place] [address] Dr. Dank Lovelace E. Cloacae complex Not detected Normal NOT DETECTED [facility] Comment on above: Performed By: #### L IPA, MG, CMP #### [facility] [address] [place] [address] Dr. Dank Lovelace E. faecalis Not detected Normal NOT DETECTED [facility] Comment on above: Performed By: #### L IPA, MG, CMP #### [facility] [address] [place] [address] Dr. Dank Lovelace E. faecium Not detected Normal NOT DETECTED [facility] Comment on above: Performed By: #### L IPA, MG, CMP #### [facility] [address] [place] [address] Dr. Dank Lovelace Enterobacteriaceae Not detected Normal NOT DETECTED [facility] Comment on above: Performed By: #### L IPA, MG, CMP #### [facility] [address] [place] [address] Dr. Dank Lovelace Escherichia coli Not detected Normal NOT DETECTED [facility] Comment on above: Performed By: #### L IPA, MG, CMP #### [facility] [address] [place] [address] Dr. Dank Lovelace H. influenzae Not detected Normal NOT DETECTED [facility] Comment on above: Performed By: #### L IPA, MG, CMP #### [facility] [address] [place] [address] Dr. Dank Lovelace IMP Resistant Gene Not Applicable Normal NOT DETECTED [facility] Comment on above: Performed By: #### L IPA, MG, CMP #### [facility] [address] [place] [address] Dr. Dank Lovelace K. oxytoca Not detected Normal NOT DETECTED [facility] Comment on above: Performed By: #### L IPA, MG, CMP #### [facility] [address] [place] [address] Dr. Dank Lovelace K. pneumoniae Not detected Normal NOT DETECTED [facility] Comment on above: Performed By: #### L IPA, MG, CMP #### [facility] [address] [place] [address] Dr. Dank Lovelace Klebsiella aerogenes Not detected Normal NOT DETECTED [facility] Comment on above: Performed By: #### L IPA, MG, CMP #### [facility] [address] [place] [address] Dr. Dank Lovelace KPC Resistant Gene Not Applicable Normal NOT DETECTED [facility] Comment on above: Performed By: #### L IPA, MG, CMP #### [facility] [address] [place] [address] Dr. Dank Lovelace List. monocytogenes Not detected Normal NOT DETECTED [facility] Comment on above: Performed By: #### L IPA, MG, CMP #### [facility] [address] [place] [address] Dr. Dank Lovelace Mcr-1 Resistant Gene Not Applicable Normal NOT DETECTED [facility] Comment on above: Performed By: #### L IPA, MG, CMP #### [facility] [address] [place] [address] Dr. Dank Lovelace mecA/C Detected Abnormal NOT DETECTED [facility] Comment on above: Performed By: #### L IPA, MG, CMP #### [facility] [address] [place] [address] Dr. Dank Lovelace mecA/C MREJ Not Applicable Normal NOT DETECTED [facility] Comment on above: Performed By: #### L IPA, MG, CMP #### [facility] [address] [place] [address] Dr. Dank Lovelace N. meningitidis Not detected Normal NOT DETECTED [facility] Comment on above: Performed By: #### L IPA, MG, CMP #### [facility] [address] [place] [address] Dr. Dank Lovelace NDM Resistant Gene Not Applicable Normal NOT DETECTED [facility] Comment on above: Performed By: #### L IPA, MG, CMP #### [facility] [address] [place] [address] Dr. Dank Lovelace Oxa-48-like Not Applicable Normal NOT DETECTED [facility] Comment on above: Performed By: #### L IPA, MG, CMP #### [facility] [address] [place] [address] Dr. Dank Lovelace Proteus Not detected Normal NOT DETECTED [facility] Comment on above: Performed By: #### L IPA, MG, CMP #### [facility] [address] [place] [address] Dr. Dank Lovelace Pseud. aeruginosa Not detected Normal NOT DETECTED [facility] Comment on above: Performed By: #### L IPA, MG, CMP #### [facility] [address] [place] [address] Dr. Dank Lovelace S. maltophilia Not detected Normal NOT DETECTED [facility] Comment on above: Performed By: #### L IPA, MG, CMP #### [facility] [address] [place] [address] Dr. Dank Lovelace Seratia marcescens Not detected Normal NOT DETECTED [facility] Comment on above: Performed By: #### L IPA, MG, CMP #### [facility] [address] [place] [address] Dr. Dank Lovelace Site: l a/c Normal [facility] Comment on above: Performed By: #### L IPA, MG, CMP #### [facility] [address] [place] [address] Dr. Dank Lovelace Staph. aureus Not detected Normal NOT DETECTED [facility] Comment on above: Performed By: #### L IPA, MG, CMP #### [facility] [address] [place] [address] Dr. Dank Lovelace Staph. epidermidis Detected Critically abnormal NOT DETECTED [facility] Comment on above: Performed By: #### L IPA, MG, CMP #### [facility] [address] [place] [address] Dr. Dank Lovelace Stapreinaldo. lugdunensis Not detected Normal NOT DETECTED [facility] Comment on above: Performed By: #### L IPA, MG, CMP #### [facility] [address] [place] [address] Dr. Dank Lovelace Staphylococcus Detected Critically abnormal NOT DETECTED [facility] Comment on above: Performed By: #### L IPA, MG, CMP #### [facility] [address] [place] [address] Dr. Dank Lovelace Strep. agalactiae Not detected Normal NOT DETECTED [facility] Comment on above: Performed By: #### L IPA, MG, CMP #### [facility] [address] [place] [address] Dr. Dank Lovelace Strep. pneumoniae Not detected Normal NOT DETECTED [facility] Comment on above: Performed By: #### L IPA, MG, CMP #### [facility] [address] [place] [address] Dr. Dank Lovelace Strep. pyogenes Not detected Normal NOT DETECTED [facility] Comment on above: Performed By: #### L IPA, MG, CMP #### [facility] [address] [place] [address] Dr. Dank Lovelace Streptococcus Not detected Normal NOT DETECTED [facility] Comment on above: Performed By: #### L IPA, MG, CMP #### [facility] [address] [place] [address] Dr. Dank Lovelace Belinda/Hakan Resist. Gene Not Applicable Normal NOT DETECTED [facility] Comment on above: Performed By: #### L IPA, MG, CMP #### [facility] [address] [place] [address] Dr. Dank Lovelace VIM Resistant Gene Not Applicable Normal NOT DETECTED [facility] Comment on above: Performed By: #### L IPA, MG, CMP #### [facility] [address] [place] [address] Dr. Dank Lovelace BNPon 09-28-2022 Natriuretic peptide B (Bld) [Mass/Vol] 282.0 pg/mL Normal <=900.0 [facility] Comment on above: Performed By: #### C MP, LIPA, TSH, BNP, CMADM #### [facility] [address] [place] [address] Dr. Dank Lovelace CARDIAC DENIS ADMITon 023 CK [Catalytic activity/Vol] 254 U/L Critically high 26-192 [facility] Comment on above: Performed By: #### C MP, LIPA, TSH, BNP, CMADM #### [facility] [address] [place] [address] Dr. Dank Lovelace CK.MB [Mass/Vol] 2.31 ng/mL Normal <=3.60 [facility] Comment on above: Performed By: #### C MP, LIPA, TSH, BNP, CMADM #### [facility] [address] [place] [address] Dr. Dank Lovelace HSTROP 10.2 pg/mL Normal 4.0-51.3 [facility] Comment on above: Result Comment: CUT- OFF POINTS HAVE BEEN ESTABLISHED BASED ON THE FOURTH UNIVERSAL DEFINITIONS OF MYOCARDIAL INFARCTION. THE UPPER REFERENCE LIMIT (URL) OF TROPONIN, DEFINED THE 99TH PERCENTILE OF cTnI DISTRIBUTION IN A REFERENCE POPULATION, HAS BEEN CONFIRMED THE DECISION THRESHOLD FOR [place] DIAGNOSIS. Performed By: #### C MP, LIPA, TSH, BNP, CMADM #### [facility] [address] [place] [address] Dr. Dank Lovelace CHRISS 454 ng/mL Critically high 9-82 [facility] Comment on above: Performed By: #### C MP, LIPA, TSH, BNP, CMADM #### [facility] [address] [place] [address] Dr. Dank Lovelace CBC AUTO DIFFon 09-28-2022 BASO # 0.0 103/ul Normal 0.0-0.1 [facility] Comment on above: Performed By: #### L IPA, MG, CMP #### [facility] [address] [place] [address] Dr. Dank Lovelace Basophils/100 WBC (Bld) 0.2 % Normal 0.2-2.0 [facility] Comment on above: Performed By: #### L IPA, MG, CMP #### [facility] [address] [place] [address] Dr. Dank Lovelace EO # 0.1 103/ul Normal 0.0-0.7 [facility] Comment on above: Performed By: #### L IPA, MG, CMP #### [facility] [address] [place] [address] Dr. Dank Lovelace Eosinophils/100 WBC (Bld) 0.5 % Critically low 0.9-7.0 [facility] Comment on above: Performed By: #### L IPA, MG, CMP #### [facility] [address] [place] [address] Dr. Dank Lovelace Erythrocyte distribution width (RBC) [Ratio] 13.2 % Normal 11.0-15.0 [facility] Comment on above: Performed By: #### L IPA, MG, CMP #### [facility] [address] [place] [address] Dr. Dank Lovelace Hematocrit (Bld) [Volume fraction] 41.5 % Normal 36.0-48.0 [facility] Comment on above: Performed By: #### L IPA, MG, CMP #### [facility] [address] [place] [address] Dr. Dank Lovelace Hemoglobin (Bld) [Mass/Vol] 14.1 g/dL Normal 12.0-16.0 [facility] Comment on above: Performed By: #### L IPA, MG, CMP #### [facility] [address] [place] [address] Dr. Dank Lovelace IG # 0.02 10e3/ul Normal 0.00-0.03 [facility] Comment on above: Performed By: #### L IPA, MG, CMP #### [facility] [address] [place] [address] Dr. Dank Lovelace IG % 0.2 % Normal 0.0-0.5 [facility] Comment on above: Performed By: #### L IPA, MG, CMP #### [facility] [address] [place] [address] Dr. Dank Lovelace LYMPH # 0.7 103/ul Critically low 1.2-3.8 [facility] Comment on above: Performed By: #### L IPA, MG, CMP #### [facility] [address] [place] [address] Dr. Dank Lovelace Lymphocytes/100 WBC (Bld) 7.3 % Critically low 20.5-60.0 [facility] Comment on above: Performed By: #### L IPA, MG, CMP #### [facility] [address] [place] [address] Dr. Dank Lovelace MANUAL DIFF REQ NO Normal [facility] Comment on above: Performed By: #### L IPA, MG, CMP #### [facility] [address] [place] [address] Dr. Dank Lovelace MCH (RBC) [Entitic mass] 31.5 pg Normal 26.7-34.0 [facility] Comment on above: Performed By: #### L IPA, MG, CMP #### [facility] [address] [place] [address] Dr. Dank Lovelace MCHC (RBC) [Mass/Vol] 34.0 g/dL Normal 29.9-35.2 [facility] Comment on above: Performed By: #### L IPA, MG, CMP #### [facility] [address] [place] [address] Dr. Dank Lovelace MCV (RBC) [Entitic vol] 92.6 fL Normal 81.0-99.0 [facility] Comment on above: Performed By: #### L IPA, MG, CMP #### [facility] [address] [place] [address] Dr. Dank Lovelace MONO # 0.7 103/ul Normal 0.3-0.8 [facility] Comment on above: Performed By: #### L IPA, MG, CMP #### [facility] [address] [place] [address] Dr. Dank Lovelace Monocytes/100 WBC (Bld) 7.1 % Normal 1.7-12.0 [facility] Comment on above: Performed By: #### L IPA, MG, CMP #### [facility] [address] [place] [address] Dr. Dank Lovelace NEUT # 8.5 103/ul Critically high 1.4-6.5 [facility] Comment on above: Performed By: #### L IPA, MG, CMP #### [facility] [address] [address] [address] Dank Lovelace Neutrophils/100 WBC (Bld) 84.7 % Critically high 43.0-75.0 [facility] Comment on above: Performed By: #### L IPA, MG, CMP #### [facility] [address] [place] [address] Dr. Dank Lovelace Platelet mean volume (Bld) [Entitic vol] 10.3 fL Normal 9.5-13.5 [facility] Comment on above: Performed By: #### L IPA, MG, CMP #### [facility] [address] [address] [address] Dank Lovelace PLT 247 103/ul Normal 150-450 [facility] Comment on above: Performed By: #### L IPA, MG, CMP #### [facility] [address] [place] [address] Dr. Dank Lovelace RBC 4.48 106/ul Normal 4.20-5.40 [facility] Comment on above: Performed By: #### L IPA, MG, CMP #### [facility] [address] [address] [address] Dank Lovelace WBC 10.1 103/ul Normal 4.0-11.0 [facility] Comment on above: Performed By: #### L IPA, MG, CMP #### [facility] [address] [place] [address] ABD/PELVIS WO CONon 09-28 CT ABD/PELVIS WO CON EXAM: CT SCAN OF TH E ABDOMEN AND PELVIS WITHOUT IV CONTRAST DATE OF EXAM: 09/28/2022 7:38 PM EST HISTORY: 67-year-old female with unspecified abdominal pain. COMPARISON: None. TECHNIQUE: CT examination of the abdomen and pelvis with sagittal and coronal reformations was performed without intravenous contrast. CT dose lowering techniques were used, to include: automated exposure control, adjustment for patient size, and/or use of iterative reconstruction. CONTRAST: None. Note: The exam is limited because some types of pathology may not be adequately demonstrated due to lack of contrast enhancement. FINDINGS: Lower Chest: On axial image 13 there is question of a nodule within some atelectasis within the medial right lung base that measures 3.5 mm. Free Air: None. Liver: Normal Gallbladder: Normal Common Bile Duct: Normal Pancreas: Normal Spleen: Normal Adrenal Glands: Normal Kidneys: Right Kidney: Normal. Right Ureter: Portions of the right ureter which are visualized measure within normal. Left Kidney: Punctate stone seen in the upper pole the left kidney. Left Ureter: Portions of the left ureter which are visualized measure within normal limits. GI Tract: Stomach: Decompressed Small Bowel: Normal Appendix: Normal Large Bowel: Diverticulosis. Mesentery/Peritoneum: Subcentimeter lymph nodes are seen in the small bowel mesentery with stranding of mesenteric fat. Vasculature: Vascular calcifications are present. Lymph Nodes: Subcentimeter lymph nodes are seen in the retroperitoneum. Abdominal Wall: Normal Bladder: The bladder is decompressed Reproductive: The uterus is in a neutral position. There are a few punctate calcifications within the uterus. Fluid attenuating region is seen involving the right ovary measuring 41 x 29 mm. Musculoskeletal: Osseous structures demonstrate mild degenerative change. Postoperative changes of the right hip demonstrate significant streak artifact. Free Fluid: None. IMPRESSION: 1. Pulmonary nodule in the right lung base measures 3.[address] scan of the chest may help better delineate. 2. Diverticulosis. 3. Calcified uterine fibroids. 4. Fluid attenuating right ovarian cyst in a postmenopausal female. Outpatient STAFF ANALYST consultation may help better delineate. 5. Nonobstructing left-sided nephrocalcinosis. 6. Otherwise unremarkable noncontrast CT of the abdomen and pelvis for acute pathology. Electronically authenticated by: JENA WEN Date: 2022-09-28 21:24 Normal [facility] CULTURE BLOODon 09-28-2022 Microscopic examination of blood, culture Culture Observations: NO GROWTH AT 5 DAYS. Normal [facility] Comment on above: Performed By: #### L IPA, MG, CMP #### [facility] [address] [place] [address] Dr. Dank Lovelace Covid-19 PCR ([facility])on 09-17 SARS-CoV-2 (COVID-19) RNA RAVIN+probe Ql (Unsp spec) Not detected Normal NOT DETECTED [facility] Comment on above: Result Comment: When diagnostic testing is negative, the possibility of a false negative should be considered in the context of a patient's recent exposures and the presence of clinical signs and symptoms consistent with SARS-CoV-2. This test is not yet approved or cleared by the [place] FDA. When there are no FDA-approved or cleared tests available, and other criteria are met, FDA can make tests available under an emergency access mechanism called an Emergency Use Authorization (EUA). The EUA for this test is supported by the Vegetable Tester of Health and Human Service's declaration that circumstances exist to justify the emergency use of in vitro diagnostics for the detection and/or diagnosis of the virus that causes COVID-19. This EUA will remain in effect for the duration of the COVID-19 declaration justifying emergency of IVDs, unless it is terminated or revoked by the FDA (after which the test may no longer be used). Performed By: #### L IPA, MG, CMP #### [facility] [address] [place] [address] Dr. Dank Lovelace ER URINE PROFILEon 3 Bilirubin Ql (U) SMALL Abnormal NEGATIVE [facility] Comment on above: Performed By: #### L IPA, MG, CMP #### [facility] [address] [place] [address] Dr. Dank Lovelace Clarity (U) CLEAR Normal CLEAR [facility] Comment on above: Performed By: #### L IPA, MG, CMP #### [facility] [address] [place] [address] Dr. Dank Lovelace Color (U) DK. YELLOW Normal YELLOW [facility] Comment on above: Performed By: #### L IPA, MG, CMP #### [facility] [address] [place] [address] Dr. Dank Lovelace ERUAHD A micrscopic examina tion will be performed if indicated. Normal [facility] Comment on above: Performed By: #### L IPA, MG, CMP #### [facility] [address] [place] [address] Dr. Dank Lovelace Glucose Ql (U) Negative Normal NEGATIVE [facility] Comment on above: Performed By: #### L IPA, MG, CMP #### [facility] [address] [place] [address] Dr. Dank Lovelace Hemoglobin Ql (U) Negative Normal NEGATIVE [facility] Comment on above: Performed By: #### L IPA, MG, CMP #### [facility] [address] [place] [address] Dr. Dank Lovelace Ketones Ql (U) Negative Normal NEGATIVE [facility] Comment on above: Performed By: #### L IPA, MG, CMP #### [facility] [address] [place] [address] Dr. Dank Lovelace LEUKOCYTES Negative Normal NEGATIVE [facility] Comment on above: Performed By: #### L IPA, MG, CMP #### [facility] [address] [address] [address] Dank Lovelace Nitrite Ql (U) Negative Normal NEGATIVE [facility] Comment on above: Performed By: #### L IPA, MG, CMP #### [facility] [address] [place] [address] Dr. Dank Lovelace pH (U) 5.5 [pH] Normal 5-9 [facility] Comment on above: Performed By: #### L IPA, MG, CMP #### [facility] [address] [place] [address] Dr. Dank Lovelace SPEC GRAVITY 1.025 Normal 1.005-<=1.0 25 [facility] Comment on above: Performed By: #### L IPA, MG, CMP #### [facility] [address] [place] [address] Dr. Dank Lovelace UA PROTEIN TRACE Normal NEGATIVE/ TRACE [facility] Comment on above: Performed By: #### L IPA, MG, CMP #### [facility] [address] [place] [address] Dr. Dank Lovelace UR MICRO IND NOT INDICATED Normal [facility] Comment on above: Performed By: #### L IPA, MG, CMP #### [facility] [address] [place] [address] Dr. Dank Lovelace Urobilinogen Qn (U) 0.2 {Simon'U}/dL Normal 0.2 - 1. 0 [facility] Comment on above: Performed By: #### L IPA, MG, CMP #### [facility] [address] [address] [address] Dank Lovelace GI PANEL (PCR)on 09-28-2022 Adenovirus F 40/41 Not detected Normal NOT DETECTED [facility] Comment on above: Performed By: #### G IPANEL #### [facility] [address] [place] [address] Dr. Dank Lovelace Astrovirus Not detected Normal NOT DETECTED [facility] Comment on above: Performed By: #### G IPANEL #### [facility] [address] [place] [address] Dr. Dank Lovelace C. Diff toxin A/B Detected Critically abnormal NOT DETECTED [facility] Comment on above: Performed By: #### G IPANEL #### [facility] [address] [place] [address] Dr. Dank Lovelace Campylobacter Not detected Normal NOT DETECTED [facility] Comment on above: Performed By: #### G IPANEL #### [facility] [address] [address] [address] Dank Lovelace Cryptosporidium Not detected Normal NOT DETECTED [facility] Comment on above: Performed By: #### G IPANEL #### [facility] [address] [place] [address] Dr. Dank Lovelace Cyclos. Cayetanensis Not detected Normal NOT DETECTED [facility] Comment on above: Performed By: #### G IPANEL #### [facility] [address] [place] [address] Dr. Dank Lovelace E. Coli O157 Not Applicable Normal Not Applicable [facility] Comment on above: Performed By: #### G IPANEL #### [facility] [address] [place] [address] Dr. Dank Lovelace E. histolytica Not detected Normal NOT DETECTED [facility] Comment on above: Performed By: #### G IPANEL #### [facility] [address] [place] [address] Dr. Dank Lovelace EAEC Not detected Normal NOT DETECTED [facility] Comment on above: Performed By: #### G IPANEL #### [facility] [address] [place], [place] [id number] Dr. Dank Lovelace EIEC Not detected Normal NOT DETECTED [facility] Comment on above: Performed By: #### G IPANEL #### [facility] [address] [place] [address] Dr. Dank Lovelace EPEC Not detected Normal NOT DETECTED [facility] Comment on above: Performed By: #### G IPANEL #### [facility] [address] [place] [address] Dr. Dank Lovelace ETEC Not detected Normal NOT DETECTED [facility] Comment on above: Performed By: #### G IPANEL #### [facility] [address] [place] [address] Dr. Dank Jackson Lamblia Not detected Normal NOT DETECTED [facility] Comment on above: Performed By: #### G IPANEL #### [facility] [address] [place] [address] Dr. Dank BAIG CONTROLS PASSED Normal [facility] Comment on above: Performed By: #### G IPANEL #### [facility] [address] [place] [address] Dr. Dank LEONE HEADER GI PANEL BACTERIA Normal [facility] Comment on above: Performed By: #### G IPANEL #### [facility] [address] [place] [address] Dr. Dank DOTSON ECOLI GI PANEL DIARRHEAGEN IC E.COLI / SHIGELLA Normal [facility] Comment on above: Performed By: #### G IPANEL #### [facility] [address] [place] [address] Dr. Dank DOTSON INFO SEE BELOW Normal [facility] Comment on above: Result Comment: EAEC - Enteroaggregative E. Coli EPEC- Enteropathogenic E. Coli ETEC- Enterotoxigenic E. Coli lt/st STEC- Shigella-like toxin-producing E. Coli stx1/stx2 EIEC- Shigella/Enteroinvasive E. Coli Performed By: #### G IPANEL #### [facility] [address] [place] [address] Dr. Dank DOTSON PARASITES GI PANEL PARASITES Normal [facility] Comment on above: Performed By: #### G IPANEL #### [facility] [address] [address] [address] Dank DOTSON VIRUS GI PANEL VIRUSES Normal [facility] Comment on above: Performed By: #### G IPANEL #### [facility] [address] [address] [address] Dank Lovelace Norovirus GI/GII Detected Abnormal NOT DETECTED [facility] Comment on above: Performed By: #### G IPANEL #### [facility] [address] [address] [address] Dank Lovelace P. Shigelloides Not detected Normal NOT DETECTED [facility] Comment on above: Performed By: #### G IPANEL #### [facility] [address] [address] [address] Dank Lovelace Rotavirus A Not detected Normal NOT DETECTED [facility] Comment on above: Performed By: #### G IPANEL #### [facility] [address] [address] [address] Dank Lovelace Sapovirus Not detected Normal NOT DETECTED [facility] Comment on above: Performed By: #### G IPANEL #### [facility] [address] [address] [address] Dank Lovelace STEC Not detected Normal NOT DETECTED [facility] Comment on above: Performed By: #### G IPANEL #### [facility] [address] [address] [address] Dank Lovelace Vibrio Not detected Normal NOT DETECTED [facility] Comment on above: Performed By: #### G IPANEL #### [facility] [address] [address] [address] Dank Lovelace Vibrio Cholera Not detected Normal NOT DETECTED [facility] Comment on above: Performed By: #### G IPANEL #### [facility] [address] [place] [address] Dr. Dank Lovelace Y. Enterocolitica Not detected Normal NOT DETECTED [facility] Comment on above: Performed By: #### G IPANEL #### [facility] [address] [place] [address] Dr. Dank Lovelace Salmonella Not detected Normal NOT DETECTED [facility] Comment on above: Performed By: #### G IPANEL #### [facility] [address] [place] [address] Dr. Dank Lovelace Performed By: #### L IPA, MG, CMP #### [facility] [address] [place] [address] Dr. Dank Lovelace INFLUENZA A AND B AGon 09-28 INFLUENZA A AG Negative Normal NEGATIVE SEE COMMENT [facility] Comment on above: Performed By: #### L IPA, MG, CMP #### [facility] [address] [place] [address] Dr. Dank Lovelace INFLUENZA B AG Negative Normal NEGATIVE SEE COMMENT [facility] Comment on above: Performed By: #### L IPA, MG, CMP #### [facility] [address] [place] [address] Dr. Dank Lovelace LACTATE/LACTIC ACIDon 2022 Lactate [Moles/Vol] 2.2 mmol/L Critically high 0.4-1.9 [facility] Comment on above: Performed By: #### L IPA, MG, CMP #### [facility] [address] [place] [address] Dr. Dank Lovelace LIPASEon 09-28-2022 Lipase [Catalytic activity/Vol] 36.0 U/L Critically low 73.0-393.0 [facility] Comment on above: Performed By: #### C MP, LIPA, TSH, BNP, CMADM #### [facility] [address] [place] [address] Dr. Dank Lovelace PROF 14(COMP METB)on 023 Albumin [Mass/Vol] 3.7 g/dL Normal 3.4-5.0 [facility] Comment on above: Performed By: #### C MP, LIPA, TSH, BNP, CMADM #### [facility] [address] [place] [address] Dr. Dank Lovelace Albumin/Globulin [Mass ratio] 1.1 {ratio} Normal [facility] Comment on above: Performed By: #### C MP, LIPA, TSH, BNP, CMADM #### [facility] [address] [address] [address] Dank Lovelace ALP [Catalytic activity/Vol] 110 U/L Normal 46-116 [facility] Comment on above: Performed By: #### C MP, LIPA, TSH, BNP, CMADM #### [facility] [address] [place] [address] Dr. Dank Lovelace ALT [Catalytic activity/Vol] 33 U/L Normal 14-59 [facility] Comment on above: Performed By: #### C MP, LIPA, TSH, BNP, CMADM #### [facility] [address] [place] [address] Dr. Dank Lovelace Anion gap [Moles/Vol] 20.3 mmol/L Normal [facility] Comment on above: Performed By: #### C MP, LIPA, TSH, BNP, CMADM #### [facility] [address] [place] [address] Dr. Dank Lovelace AST [Catalytic activity/Vol] 31 U/L Normal 15-37 [facility] Comment on above: Performed By: #### C MP, LIPA, TSH, BNP, CMADM #### [facility] [address] [place] [address] Dr. Dank Lovelace Bilirubin [Mass/Vol] 0.9 mg/dL Normal 0.2-1.0 [facility] Comment on above: Performed By: #### C MP, LIPA, TSH, BNP, CMADM #### [facility] [address] [place] [address] Dr. Dank Lovelace Calcium [Mass/Vol] 9.2 mg/dL Normal 8.5-10.1 [facility] Comment on above: Performed By: #### C MP, LIPA, TSH, BNP, CMADM #### [facility] [address] [place] [address] Dr. Dank Lovelace Chloride [Moles/Vol] 105 mmol/L Normal 98-107 [facility] Comment on above: Performed By: #### C MP, LIPA, TSH, BNP, CMADM #### [facility] [address] [address] [address] Dank Lovelace CO2 [Moles/Vol] 16.6 mmol/L Critically low 21.0-32.0 [facility] Comment on above: Performed By: #### C MP, LIPA, TSH, BNP, CMADM #### [facility] [address] [address] [address] Dnak Lovelace Creatinine [Mass/Vol] 1.27 mg/dL Critically high 0.55-1.02 [facility] Comment on above: Performed By: #### C MP, LIPA, TSH, BNP, CMADM #### [facility] [address] [place] [address] Dr. Dank Lovelace EGFR-AF BAHRAINI 51 mL/min/1.73m2 Critically low >=60 [facility] Comment on above: Performed By: #### C MP, LIPA, TSH, BNP, CMADM #### [facility] [address] [place] [address] Dr. Dank Lovelace EGFR-NON AF BAHRAINI 42 mL/min/1.73m2 Critically low >=60 [facility] Comment on above: Performed By: #### C MP, LIPA, TSH, BNP, CMADM #### [facility] [address] [place] [address] Dr. Dank Lovelace Globulin (S) [Mass/Vol] 3.3 g/dL Normal [facility] Comment on above: Performed By: #### C MP, LIPA, TSH, BNP, CMADM #### [facility] [address] [place] [address] Dr. Dank Lovelace Glucose [Mass/Vol] 125 mg/dL Critically high 74-106 [facility] Comment on above: Performed By: #### C MP, LIPA, TSH, BNP, CMADM #### [facility] [address] [place] [address] Dr. Dank Lovelace Potassium [Moles/Vol] 3.9 mmol/L Normal 3.5-5.1 [facility] Comment on above: Performed By: #### C MP, LIPA, TSH, BNP, CMADM #### [facility] [address] [place] [address] Dr. Dank Lovelace Protein [Mass/Vol] 7.0 g/dL Normal 6.4-8.2 [facility] Comment on above: Performed By: #### C MP, LIPA, TSH, BNP, CMADM #### [facility] [address] [place] [address] Dr. Dank Lovelace Sodium [Moles/Vol] 138 mmol/L Normal 136-145 [facility] Comment on above: Performed By: #### C MP, LIPA, TSH, BNP, CMADM #### [facility] [address] [place] [address] Dr. Dank Lovelace Urea nitrogen [Mass/Vol] 25.0 mg/dL Critically high 7.0-18.0 [facility] Comment on above: Performed By: #### C MP, LIPA, TSH, BNP, CMADM #### [facility] [address] [place] [address] Dr. Dank Lovelace Urea nitrogen/Creatinine [Mass ratio] 19.7 mg/mg Normal [facility] Comment on above: Performed By: #### C MP, LIPA, TSH, BNP, CMADM #### [facility] [address] [place] [address] Dr. Dank Lovelace TSHon 09-28-2022 TSH 1.091 uIU/mL Normal 0.358-3.740 [facility] Comment on above: Performed By: #### C MP, LIPA, TSH, BNP, CMADM #### [facility] [address] [place] [address] Dr. Dank Lovelace XR CHEST 1 Von 09-28-2022 XR CHEST 1 V EXAMINATION: XR CHES T 1 V HISTORY: Abdominal pain and diarrhea COMPARISON: None. TECHNIQUE: Portable chest FINDINGS: The lung parenchyma is free of consolidation or infiltrate. No pneumothorax or pleural effusion. The cardiac, mediastinal and hilar contours are normal. The visualized osseous structures exhibit no gross abnormality. IMPRESSION: No acute cardiopulmonary abnormality. Electronically authenticated by: SENAIT KELSEY Date: 2022-09-28 20:42 Normal [facility] 09-17-2022 [facility] [address], [address], [address] [place] [address] TRANSTHORACIC ECHOCARDIOGRAM REPORT Patient Name: JESUS Holguin Almita Physician: [id number] Yuriy Conway MD, [facility] Study Date: 09/17/2022 Referring YURIY CONWAY Physician: MRN/PID: [id number] PCP: Wojciech Treviño MD Accession/Order#: [id number] Department [facility] Location: Date of : 1955 Fellow: Gender: F Nurse: Rima Nesbitt RN Admit Date: Utilities Manager: Yulia Ayers CS, T Height: 170.18 cm CC Report to: Weight: 112.04 kg Study Type: Echocardiogram BSA: 2.21 m2 Blood Pressure: 114 /72 mmHg Diagnosis/ICD: I48.0-Paroxysmal atrial fibrillation; I71.20-Thoracic aortic aneurysm, without rupture, unspecified Indication: Atrial Fibrillation/Flutter-s/p Ablation, HTN, Hyperlipidemia, Lupus, MONI, Obesity, Hyperparatyroid Disease-s/p Resection Procedure/CPT: Echo Complete w Full Doppler-[id number] Study Detail: The following Echo studies were performed: 2D, M-Mode, Doppler and color flow. Optison used as a contrast agent for endocardial border definition. Total contrast used for this procedure was 0.7 mL via IV push. PHYSICIAN INTERPRETATION: Left Ventricle: Left ventricular systolic function is normal, with an estimated ejection fraction of 65%. There are no regional wall motion abnormalities. The left ventricular cavity size is normal. Spectral Doppler shows a pseudonormal pattern of left ventricular diastolic filling. There is an elevated mean left atrial pressure. Mild concentric left ventricular hypertrophy. Left Atrium: The left atrium is mildly dilated. Right Ventricle: The right ventricle is normal in size. There is normal right ventricular global systolic function. Right Atrium: The right atrium is normal in size. Aortic Valve: The aortic valve is trileaflet. There is mild aortic valve cusp calcification. There is mild aortic valve regurgitation. The peak instantaneous gradient of the aortic valve is 13.0 mmHg. The mean gradient of the aortic valve is 6.0 mmHg. Mitral Valve: The mitral valve is mild to moderately thickened. There is moderate to severe mitral annular calcification. There is mild mitral valve regurgitation. Tricuspid Valve: The tricuspid valve is structurally normal. There is trace to mild tricuspid regurgitation. Calculated RVSP 36 mmHg. Pulmonic Valve: The pulmonic valve is not well visualized. There is no indication of pulmonic valve regurgitation. Pericardium: There is no pericardial effusion noted. Aorta: The aortic root is abnormal. There is mild dilatation of the aortic root. Systemic Veins: The inferior vena cava appears to be of normal size. CONCLUSIONS: 1. Left ventricular systolic function is normal with a 65% estimated ejection fraction. 2. Mild concentric left ventricular hypertrophy. 3. Spectral Doppler shows a pseudonormal pattern of left ventricular diastolic filling. 4. There is an elevated mean left atrial pressure. 5. There is moderate to severe mitral annular calcification. 6. Mild mitral valve regurgitation. 7. Calculated RVSP 36 mmHg. 8. Mild aortic valve regurgitation. QUANTITATIVE DATA SUMMARY: 2D MEASUREMENTS: Normal Ranges: Ao Root d: 3.80 cm (2.0-3.7cm) LAs: 4.80 cm (2.7-4.0cm) RVIDd: 3.90 cm (0.9-3.6cm) IVSd: 1.50 cm (0.6-1.1cm) LVPWd: 1.20 cm (0.6-1.1cm) LVIDd: 5.30 cm (3.9-5.9cm) LVIDs: 3.70 cm LV Mass Index: 136.9 g/m2 LV % FS 30.2 % LV SYSTOLIC FUNCTION BY 2D PLANIMETRY (MOD): Normal Ranges: EF-A4C View: 64.4 % (>=55%) LV DIASTOLIC FUNCTION: Normal Ranges: MV Peak E: 1.27 m/s (0.7-1.2 m/s) MV Peak A: 0.67 m/s (0.42-0.7 m/s) E/A Ratio: 1.89 (1.0-2.2) MV lateral e' 0.06 m/s MV medial e' 0.05 m/s E/e' Ratio: 20.00 (<8.0) MITRAL VALVE: Normal Ranges: MV Vmax: 1.49 m/s (<=1.3m/s) MV peak P.9 mmHg (<5mmHg) MV mean P.0 mmHg (<48mmHg) MITRAL INSUFFICIENCY: Normal Ranges: MR Vmax: 396.00 cm/s dP/dt: 1515 mmHg/s (>1200mmHg/sec) AORTIC VALVE: Normal Ranges: AoV Vmax: 1.80 m/s (<=1.7m/s) AoV Peak P.0 mmHg (<20mmHg) AoV Mean P.0 mmHg (1.7-11.5mmHg) LVOT Max Nav: 0.84 m/s (<=1.1m/s) AoV VTI: 41.10 cm (18-25cm) LVOT VTI: 19.40 cm LVOT Diameter: 2.60 cm (1.8-2.4cm) AoV Area, VTI: 2.51 cm2 (2.5-5.5cm2) AoV Area,Vmax: 2.48 cm2 (2.5-4.5cm2) AoV Dimensionless Index: 0.47 AORTIC INSUFFICIENCY: AI Vmax: 4.43 m/s AI Half-time: 639 msec AI Decel Rate: 186.00 cm/s2 TRICUSPID VALVE/RVSP: Normal Ranges: Peak TR Velocity: 2.78 m/s RV Syst Pressure: 33.9 mmHg (< 30mmHg) PULMONIC VALVE: Normal Ranges: PV Max Nav: 0.7 m/s (0.6-0.9m/s) PV Max P.0 mmHg [id number] Yuriy Conway MD, [facility] Electronically signed on 09/18/2022 at 5:16:24 PM Final Normal [facility] Sarita 09-15-2022 GILMA Telephone (TRIP) ----- JESUS WOLF ([id number]) 1955 F Date Time Provider Department 09/15/22 BRYAN PAINTING During your visit today, we recorded the following information about you: Bryan Painting MD 09/15/2022 11:18 AM Signed ENDOCRINE SURGERY POST OP FOLLOW UP Name: Jesus Wolf Date: September 15, 2022 PROCEDURE: parathyroidectomy Patient is doing well overall. Voice is strong and normal. Reviewed pathology hypercellular Reviewed labs Ca 9.2 PTH 27 Incision care reviewed Plan: Drop Oscal daily Repeat labs in six months SIGNATURE: Bryan Painting MD Allergies As of Date: 09/15/2022 Noted Allergy Reaction DOFETILIDE 03/15/2020 14 - Other: See Comments 10 - Anaphylaxis Comments: V-tach SULFA (SULFONAMIDE ANTIBIOTICS) 02/21/2010 11 - Vomiting Comments: total body swelling and kidney shut down, body aches and rash CONTRAST DYE 08/28/2010 14 - Other: See Comments Comments: (Deep seafood) hot flashes, sweating. CODEINE 02/21/2010 14 - Other: See Comments Comments: severe headaches COMPAZINE (PROCHLORPERAZINE EDISY*02/21/2010 14 - Other: See Comments Comments: loss control of left side of face TETNUS (TETANUS VACCINES AND TOXO*02/21/2010 14 - Other: See Comments Comments: red spot in area of shot Date Reviewed: 08/28/2022 Reviewed by: Sravani Wagoner RN - Fully Assessed Reason for Visit: Results [95] Prescriptions as of 09/15/2022 - colestipol (COLESTID) 1 gram tablet Take 2 tablets by mouth twice daily. - acetaminophen (TYLENOL) 500 mg tablet Take 1 tablet by mouth every 4 hours as needed for pain. - calcium carbonate (TUMS) 500 mg chew Take 1 tablet by mouth every hour as needed (mouth or hand numbness or tingling). - bdhsaaq-gxcvkcxbl-qxjlvkz D3 500 mg-5 mcg (200 unit) per tablet Take 1 tablet by mouth three times daily. - MV with Chc-Jytehthk-Gnbwbb (CENTRUM SILVER) 0.4 mg-300 mcg- 250 mcg tab Take 1 tablet by mouth once daily. - pantoprazole DR (PROTONIX) 40 mg tablet Take 1 tablet by mouth twice daily. - alendronate (FOSAMAX) 70 mg tablet Take 1 tablet by mouth one time a week. In the morning with a full glass of water, on an empty stomach. Do not take anything else by mouth or lie down for the next 30 minutes. - mycophenolate Mofetil (CELLCEPT) 500 mg tablet take 1 tablet by mouth daily - Mesalamine (LIALDA) 1.2 gram EC tablet Take 4 tablets by mouth once daily. - celecoxib (CELEBREX) 200 mg capsule Take 200 mg by mouth twice daily. - hydrOXYchloroQUINE (PLAQUENIL) 200 mg tablet take 1 tablet by mouth twice a day with food - metoprolol succinate ER (TOPROL XL) 50 mg 24 hr tablet 50mg in am and 100mg in pm. - ferrous sulfate (IRON) 325 mg (65 mg iron) tablet Take 1 tablet by mouth once daily. - cholestyramine-sucrose (QUESTRAN) 4 gram powder Take 4 g by mouth twice daily with meals. - sucralfate (CARAFATE) 100 mg/mL suspension Take 10 mL by mouth four times daily. - atorvastatin (LIPITOR) 40 mg tablet Take 1 tablet by mouth once daily. - Bifidobacterium infantis (ALIGN ORAL) Take by mouth once daily. - belimumab (BENLYSTA INTRAVENOUS) Inject intravenously. Patient reports she receives infusion every 3 months - venlafaxine ER (EFFEXOR XR) 150 mg 24 hr capsule Take 1 capsule by mouth once daily. - levothyroxine (SYNTHROID) 75 mcg tablet Take 75 mcg by mouth once daily. - furosemide (LASIX) 40 mg tablet Take 40 mg by mouth once daily. - busPIRone (BUSPAR) 10 mg tablet Take 10 mg by mouth daily at bedtime. - spironolactone (ALDACTONE) 50 mg tablet Take 50 mg by mouth once daily. - Cholecalciferol, Vitamin D3, 2,000 unit cap Take by mouth once daily. - vitamin b complex(B COMPLEX TAB) one daily - multivitamins w-minerals/lut(CENTRUM SILVER TAB) Take one(1) tablet daily. Facility-Administered Medications as of 09/15/2022 - belimumab 1,000 mg in NaCl 0.9% 250 mL (BENLYSTA) - NaCl 0.9% iv infusion - diphenhydrAMINE 50 mg injection (BENADRYL) - hydrocortisone sodium succinate (PF) 100 mg injection (Solu-CORTEF) - EPINEPHrine HCl (PF) 1 mg/mL (1 mL) 0.3 mg injection - sodium chloride 0.9 % (flush) 10-20 mL (BD POSIFLUSH) - heparin 100 unit/mL 500 Units injection - sodium chloride 0.9 % (flush) 10-20 mL (BD POSIFLUSH) - perflutren lipid microspheres 1.3 mL in NaCl (PF) 0.9% 10 mL injection (DEFINITY) - sodium chloride 0.9 % (flush) 10 mL (BD POSIFLUSH) Problem List As Of Date 09/15/2022 Noted Resolved Edema [R60.9] 02/22/2010 Proteinuria [R80.9] 02/22/2010 Essential hypertension [I10] 02/22/2010 Atrial fibrillation (HCC) [I48.91] 02/22/2010 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 [facility] JOHNATHANN Telephone (EILEEN) ----- JESUS WOLF ([id number]) 1955 F Date Time Provider Department 09/12/22 EVELIN ABEL During your visit today, we recorded the following information about you: Jessica Rodríguez, RN 09/12/2022 2:18 PM Signed I spoke to Jesus and she will be coming for her infusion on Thursday09-15-22. She states that she had parathyroid surgery since her last infusion. She had a follow up with her PCP, and her incision is healed. She was not on any antibiotics for this procedure. She denies having been sick or on any recent antibiotics. Allergies As of Date: 09/12/2022 Noted Allergy Reaction DOFETILIDE 03/15/2020 14 - Other: See Comments 10 - Anaphylaxis Comments: V-tach SULFA (SULFONAMIDE ANTIBIOTICS) 02/21/2010 11 - Vomiting Comments: total body swelling and kidney shut down, body aches and rash CONTRAST DYE 08/28/2010 14 - Other: See Comments Comments: (Deep seafood) hot flashes, sweating. CODEINE 02/21/2010 14 - Other: See Comments Comments: severe headaches COMPAZINE (PROCHLORPERAZINE EDISY*02/21/2010 14 - Other: See Comments Comments: loss control of left side of face TETNUS (TETANUS VACCINES AND TOXO*02/21/2010 14 - Other: See Comments Comments: red spot in area of shot Date Reviewed: 08/28/2022 Reviewed by: Sravani Wagoner RN - Fully Assessed Reason for Visit: Patient Question [6622] Cmt: I spoke to Jesus and she will be coming for her infusion on Thursday09-15-22. She states that she had parathyroid surgery since her last infusion. She has had a follow up apt with her PCP, and her incision is healed. She was not on any antibiotics for this procedure. She denies having been sick or on any recent antibiotics. Prescriptions as of 09/12/2022 - colestipol (COLESTID) 1 gram tablet Take 2 tablets by mouth twice daily. - acetaminophen (TYLENOL) 500 mg tablet Take 1 tablet by mouth every 4 hours as needed for pain. - calcium carbonate (TUMS) 500 mg chew Take 1 tablet by mouth every hour as needed (mouth or hand numbness or tingling). - hvrytkk-bxrpvavho-mnybdch D3 500 mg-5 mcg (200 unit) per tablet Take 1 tablet by mouth three times daily. - MV with Ttm-Vwkwycpp-Ahynvv (CENTRUM SILVER) 0.4 mg-300 mcg- 250 mcg tab Take 1 tablet by mouth once daily. - pantoprazole DR (PROTONIX) 40 mg tablet Take 1 tablet by mouth twice daily. - alendronate (FOSAMAX) 70 mg tablet Take 1 tablet by mouth one time a week. In the morning with a full glass of water, on an empty stomach. Do not take anything else by mouth or lie down for the next 30 minutes. - mycophenolate Mofetil (CELLCEPT) 500 mg tablet take 1 tablet by mouth daily - Mesalamine (LIALDA) 1.2 gram EC tablet Take 4 tablets by mouth once daily. - celecoxib (CELEBREX) 200 mg capsule Take 200 mg by mouth twice daily. - hydrOXYchloroQUINE (PLAQUENIL) 200 mg tablet take 1 tablet by mouth twice a day with food - metoprolol succinate ER (TOPROL XL) 50 mg 24 hr tablet 50mg in am and 100mg in pm. - ferrous sulfate (IRON) 325 mg (65 mg iron) tablet Take 1 tablet by mouth once daily. - cholestyramine-sucrose (QUESTRAN) 4 gram powder Take 4 g by mouth twice daily with meals. - sucralfate (CARAFATE) 100 mg/mL suspension Take 10 mL by mouth four times daily. - atorvastatin (LIPITOR) 40 mg tablet Take 1 tablet by mouth once daily. - Bifidobacterium infantis (ALIGN ORAL) Take by mouth once daily. - belimumab (BENLYSTA INTRAVENOUS) Inject intravenously. Patient reports she receives infusion every 3 months - venlafaxine ER (EFFEXOR XR) 150 mg 24 hr capsule Take 1 capsule by mouth once daily. - levothyroxine (SYNTHROID) 75 mcg tablet Take 75 mcg by mouth once daily. - furosemide (LASIX) 40 mg tablet Take 40 mg by mouth once daily. - busPIRone (BUSPAR) 10 mg tablet Take 10 mg by mouth daily at bedtime. - spironolactone (ALDACTONE) 50 mg tablet Take 50 mg by mouth once daily. - Cholecalciferol, Vitamin D3, 2,000 unit cap Take by mouth once daily. - vitamin b complex(B COMPLEX TAB) one daily - multivitamins w-minerals/lut(CENTRUM SILVER TAB) Take one(1) tablet daily. Facility-Administered Medications as of 09/12/2022 - perflutren lipid microspheres 1.3 mL in NaCl (PF) 0.9% 10 mL injection (DEFINITY) - sodium chloride 0.9 % (flush) 10 mL (BD POSIFLUSH) Problem List As Of Date 09/12/2022 Noted Resolved Edema [R60.9] 02/22/2010 Proteinuria [R80.9] 02/22/2010 Essential hypertension [I10] 02/22/2010 Atrial fibrillation (HCC) [I48.91] 02/22/2010 Membranous Glomerulonephritis [N05.2] 03/15/2010 Vitamin D Deficiency [E55.9] 05/03/2010 SLE (systemic lupus erythematosus) ([facility]) [M32.9]07/16/2011 Fibromyalgia [M79.7] 03/10/2012 Sleep apnea [G47.30] 07/29/2012 Encounter for long-term (current) use of other *11/10/2012 Osteoarthritis of ankle and foot [M19.079] 01/02/2014 HALLUX VALGUS ACQUIRED [M2 (more content not included)... Normal [facility] Calcium SerPl-ncon 09-09- 023 Calcium [Mass/Vol] 9.2 mg/dL Normal 8.5-10.2 [facility] Comment on above: Order Comment: Morena barragan Type: BLOOD SPECIMEN Ordering Facility: [facility] Address: [address] [place] [address] Performed By: #### D NAA, [id number] #### [facility] CLIA [id number] [facility] [place] PTH-Intact [facility] 08-18 Parathyrin.intact [Mass/Vol] 29 pg/mL Normal 15-65 [facility] Comment on above: Order Comment: Morena barragan Type: BLOOD SPECIMEN Ordering Facility: [facility] Address: [address] [place] [address] Performed By: #### 2 731-8 #### [facility] CLIA [id number] [facility] [place] [address] [place] CNPRuth 09-08-2022 CNPN Telephone (TRIP) ----- JESUS WOLF ([id number]) 1955 F Date Time Provider Department 09/08/22 BRYAN PAINTING During your visit today, we recorded the following information about you: Sarai Menjivar RN 09/08/2022 4:30 PM Signed Pt calling to see if Dr. Painting would be calling her today. I told pt that Dr. Painting would call her after she had labs drawn. Pt is to have labs done at the end of the week. Pt states that she was having symptoms of low calcium at the end of last week but has been doing ok since. She is going to continue to take calcium 3 times a day until she hears from Dr. Painting. Pt will call with any further questions or concerns. Sarai Menjivar RN Allergies As of Date: 09/08/2022 Noted Allergy Reaction DOFETILIDE 03/15/2020 14 - Other: See Comments 10 - Anaphylaxis Comments: V-tach SULFA (SULFONAMIDE ANTIBIOTICS) 02/21/2010 11 - Vomiting Comments: total body swelling and kidney shut down, body aches and rash CONTRAST DYE 08/28/2010 14 - Other: See Comments Comments: (Deep seafood) hot flashes, sweating. CODEINE 02/21/2010 14 - Other: See Comments Comments: severe headaches COMPAZINE (PROCHLORPERAZINE EDISY*02/21/2010 14 - Other: See Comments Comments: loss control of left side of face TETNUS (TETANUS VACCINES AND TOXO*02/21/2010 14 - Other: See Comments Comments: red spot in area of shot Date Reviewed: 08/28/2022 Reviewed by: Sravani Wagoner RN - Fully Assessed Reason for Visit: Patient Update [1234] Prescriptions as of 09/08/2022 - acetaminophen (TYLENOL) 500 mg tablet Take 1 tablet by mouth every 4 hours as needed for pain. - calcium carbonate (TUMS) 500 mg chew Take 1 tablet by mouth every hour as needed (mouth or hand numbness or tingling). - ycphdrs-nomuzsubj-wzzowdm D3 500 mg-5 mcg (200 unit) per tablet Take 1 tablet by mouth three times daily. - MV with Sxa-Dujrligi-Xehgil (CENTRUM SILVER) 0.4 mg-300 mcg- 250 mcg tab Take 1 tablet by mouth once daily. - pantoprazole DR (PROTONIX) 40 mg tablet Take 1 tablet by mouth twice daily. - alendronate (FOSAMAX) 70 mg tablet Take 1 tablet by mouth one time a week. In the morning with a full glass of water, on an empty stomach. Do not take anything else by mouth or lie down for the next 30 minutes. - colestipol (COLESTID) 1 gram tablet Take 2 tablets by mouth twice daily. - mycophenolate Mofetil (CELLCEPT) 500 mg tablet take 1 tablet by mouth daily - Mesalamine (LIALDA) 1.2 gram EC tablet Take 4 tablets by mouth once daily. - celecoxib (CELEBREX) 200 mg capsule Take 200 mg by mouth twice daily. - hydrOXYchloroQUINE (PLAQUENIL) 200 mg tablet take 1 tablet by mouth twice a day with food - metoprolol succinate ER (TOPROL XL) 50 mg 24 hr tablet 50mg in am and 100mg in pm. - ferrous sulfate (IRON) 325 mg (65 mg iron) tablet Take 1 tablet by mouth once daily. - cholestyramine-sucrose (QUESTRAN) 4 gram powder Take 4 g by mouth twice daily with meals. - sucralfate (CARAFATE) 100 mg/mL suspension Take 10 mL by mouth four times daily. - atorvastatin (LIPITOR) 40 mg tablet Take 1 tablet by mouth once daily. - Bifidobacterium infantis (ALIGN ORAL) Take by mouth once daily. - belimumab (BENLYSTA INTRAVENOUS) Inject intravenously. Patient reports she receives infusion every 3 months - venlafaxine ER (EFFEXOR XR) 150 mg 24 hr capsule Take 1 capsule by mouth once daily. - levothyroxine (SYNTHROID) 75 mcg tablet Take 75 mcg by mouth once daily. - furosemide (LASIX) 40 mg tablet Take 40 mg by mouth once daily. - busPIRone (BUSPAR) 10 mg tablet Take 10 mg by mouth daily at bedtime. - spironolactone (ALDACTONE) 50 mg tablet Take 50 mg by mouth once daily. - Cholecalciferol, Vitamin D3, 2,000 unit cap Take by mouth once daily. - vitamin b complex(B COMPLEX TAB) one daily - multivitamins w-minerals/lut(CENTRUM SILVER TAB) Take one(1) tablet daily. Facility-Administered Medications as of 09/08/2022 - perflutren lipid microspheres 1.3 mL in NaCl (PF) 0.9% 10 mL injection (DEFINITY) - sodium chloride 0.9 % (flush) 10 mL (BD POSIFLUSH) Problem List As Of Date 09/08/2022 Noted Resolved Edema [R60.9] 02/22/2010 Proteinuria [R80.9] 02/22/2010 Essential hypertension [I10] 02/22/2010 Atrial fibrillation (HCC) [I48.91] 02/22/2010 Membranous Glomerulonephritis [N05.2] 03/15/2010 Vitamin D Deficiency [E55.9] 05/03/2010 SLE (systemic lupus erythematosus) (HCC) [M32.9]07/16/2011 Fibromyalgia [M79.7] 03/10/2012 Sleep apnea [G47.30] 07/29/2012 Encounter for long-term (current) use of other *11/10/2012 Osteoarthritis of ankle and foot [M19.079] 01/02/2014 HALLUX VALGUS ACQUIRED [M20.10] 01/02/2014 Other hammer toe (acquired) [M20.40] 01/02/2014 Enthesopathy of ankle and tarsus, unspecified [*01/02/2014 Lesion of plantar nerve [G57.60] 01/02/2014 Neuralgia, neuritis, and radiculitis, unspecifi*01/02/2014 (more content not included)... Normal [facility] Calcium [facility] 023 Calcium [Mass/Vol] 10.2 mg/dL Normal 8.5-10.2 [facility] Comment on above: Order Comment: Morena barragan Type: BLOOD SPECIMEN Ordering Facility: [facility] Address: [address] [phone] Performed By: #### 1 989-3 #### [facility] CLIA [id number] [address] [facility] [place] [address] [place] PTH-Intact [facility]-ncon 08-17 Parathyrin.intact [Mass/Vol] 12 pg/mL Low 15-65 [facility] Comment on above: Order Comment: Morena barragan Type: BLOOD SPECIMEN Ordering Facility: [facility] Address: [address] [phone] Performed By: #### 1 989-3 #### [facility] CLIA [id number] [address] [place] [id number] [address] [place] ANES POSTPROC EVALon 023 ANES POSTPROC EVAL HNO ID: [id number] Author: Kendrick Quezada DO Service: ? Author Type: Anesthesiologist Type: Anesthesia Postprocedure Evaluation Filed: 08/27/2022 9:55 AM Note Text: POST ANESTHESIA EVALUATION NOTE : 1955 Procedure Summary Date: 08/27/22 Room / Location: [address] [facility] Anesthesia Start: 821 Anesthesia Stop: 954 Procedure: PARATHYROIDECTOMY (Thyroid) Diagnosis: Primary hyperparathyroidism (HCC) (Primary hyperparathyroidism (HCC) [E21.0]) Surgeons: Bryan Painting MD Responsible Provider: Kendrick Quezada DO Anesthesia Type: general ASA Status: 3 Anesthesia Type: general Airway Type: ETT Last Vitals Vitals Value Taken Time BP 156/70 08/27/22 0951 Temp 36.8 08/27/22 0955 Pulse 74 08/27/22 0954 Resp 132 08/27/22 0952 SpO2 100 % 08/27/22 0954 Vitals shown include unvalidated device data. Post Anesthesia Patient Status Patient Evaluation: PACU. PACU/ICU Patient Condition: stable. Anticipated Disposition: inpatient floor planned admission. Neurological Status: aware and responsive. Pulmonary Status: breathing comfortably on supplemental oxygen Airway Control: returned to baseline unsupported. Cardiovascular Status: stable. Pain Management: clinically adequate Postoperative Hydration: acceptable. Intraoperative Events: no significant anesthesia events Post Operative Nausea/Vomiting Status: no significant post operative nausea or vomiting Recommendation: continue current plan of care. Anesthesia Observations No Documentation SIGNATURE: Kendrick Quezada DO PATIENT NAME: Jesus Wolf DATE: August 27, 2022 TIME: 9:55 AM CSN: [id number] Normal [facility] ANES PRE-OPon 08-27-2022 ANES PRE-OP HNO ID: [id number] Author: Kendrick Quezada DO Service: ? Author Type: Anesthesiologist Type: Anesthesia Preprocedure Evaluation Filed: 08/27/2022 6:55 AM Note Text: ANESTHESIOLOGY DAY OF SURGERY NOTE : 1955 Procedure Information Date/Time: 08/27/22829 Procedure: PARATHYROIDECTOMY (Thyroid) Location: [facility] Surgeons: Bryan Painting MD Estimated body mass index is 39.71 kg/m? as calculated from the following: Height as of 07/31/22: 167.6 cm (5' 6 ). Weight as of 07/31/22: 111.6 kg (246 lb). Most recent hematocrit and potassium results: Hematocrit 39.7 06/30/2022 Potassium 4.6 06/30/2022 Relevant Problems ANESTHESIA (+) Sleep apnea CARDIO (+) Atrial fibrillation (HCC) (+) Chronic congestive heart failure (HCC) (+) Essential hypertension (+) Thoracic ascending aortic aneurysm ENDO (+) Hypothyroidism -RENAL (+) Membranous glomerulonephritis PULMONARY (+) Sleep apnea Other (+) Other synovitis and tenosynovitis, unspecified ankle and foot (+) Synovitis of foot (+) Synovitis of left foot (+) Synovitis of right foot I - PHYSICAL EVALUATION AIRWAY Patient intubated: No. Tracheostomy tube not present Mallampati: II. TM distance: >3 FB. Neck ROM: full ROM without neurological symptoms. Mouth opening: adequate. Short neck: no. Thick neck: no Robbins present: no DENTAL Normal dental observations. Dental findings: teeth intact. II - ANESTHESIA PLAN ASA Score: 3 Anesthetic Plan: general Airway type: ETT The patient is not a current smoker. NPO Status: adequate Beta Girish Administration of chronic beta girish medication not planned. Monitoring Plan Monitoring plan: standard ASA. Post Procedure Analgesic Plan Postoperative analgesic plan: multimodal analgesia. Informed Consent Anesthetic risks, benefits, alternatives, personnel and consent discussed: yes. Patient / Responsible Alliance Party agrees to proceed: yes Patient / Surrogate agrees to blood products: Yes DNR status not reviewed with patient and/or family prior to surgery. Significant changes in the patient condition since the History and Physical, not otherwise documented in primary service progress note: no. Potential Anesthesia issues that may suggest increased risk of complications or contraindication to planned procedure: none. No vitals data found for the desired time range. No current facility-administered medications on file as of 08/27/2022. Outpatient Medications as of 08/27/2022 Medication Sig - pantoprazole DR (PROTONIX) 40 mg tablet Take 1 tablet by mouth twice daily. - alendronate (FOSAMAX) 70 mg tablet Take 1 tablet by mouth one time a week. In the morning with a full glass of water, on an empty stomach. Do not take anything else by mouth or lie down for the next 30 minutes. - colestipol (COLESTID) 1 gram tablet Take 2 tablets by mouth twice daily. - mycophenolate Mofetil (CELLCEPT) 500 mg tablet take 1 tablet by mouth daily - Mesalamine (LIALDA) 1.2 gram EC tablet Take 4 tablets by mouth once daily. - celecoxib (CELEBREX) 200 mg capsule Take 200 mg by mouth twice daily. - hydrOXYchloroQUINE (PLAQUENIL) 200 mg tablet take 1 tablet by mouth twice a day with food - metoprolol succinate ER (TOPROL XL) 50 mg 24 hr tablet 50mg in am and 100mg in pm. - ferrous sulfate (IRON) 325 mg (65 mg iron) tablet Take 1 tablet by mouth once daily. - apixaban (ELIQUIS) 5 mg tab(s) Take 1 tablet by mouth twice daily. - cholestyramine-sucrose (QUESTRAN) 4 gram powder Take 4 g by mouth twice daily with meals. - sucralfate (CARAFATE) 100 mg/mL suspension Take 10 mL by mouth four times daily. - atorvastatin (LIPITOR) 40 mg tablet Take 1 tablet by mouth once daily. - Bifidobacterium infantis (ALIGN ORAL) Take by mouth once daily. - belimumab (BENLYSTA INTRAVENOUS) Inject intravenously. Patient reports she receives infusion every 3 months - venlafaxine ER (EFFEXOR XR) 150 mg 24 hr capsule Take 1 capsule by mouth once daily. - levothyroxine (SYNTHROID) 75 mcg tablet Take 75 mcg by mouth once daily. - furosemide (LASIX) 40 mg tablet Take 40 mg by mouth once daily. - busPIRone (BUSPAR) 10 mg tablet Take 10 mg by mouth daily at bedtime. - spironolactone (ALDACTONE) 50 mg tablet Take 50 mg by mouth once daily. - Cholecalciferol, Vitamin D3, 2,000 unit cap Take by mouth once daily. - vitamin b complex(B COMPLEX TAB) one daily - multivitamins w-minerals/lut(CENTRUM SILVER TAB) Take one(1) tablet daily. I have interviewed and examined the patient. I have reviewed the medical record and/or the pre-anesthesia evaluation, pertinent labs, and test results. This contains updated information obtained within 48 hours of Surgery/Procedure. SIGNATURE: Kendrick Quezada DO PATIENT NAME: Jesus Wolf DATE: August 27, 2022 TIME: 6:54 AM CSN: [id number] Normal [facility] BRIEF OP NOTon 08-27-2022 BRIEF OP NOT HNO ID: [id number] Author: Vargas Reid MD Service: Endocrine Surgery Author Type: Physician Type: Brief Op Note Filed: 08/27/2022 9:29 AM Note Text: Brief Operative Note Patient Name: Jesus Wolf LOG ID: [id number] Surgery/Procedure Date: 08/27/2022 Surgeon(s)/Proceduralist( s) and Wire Communications Engineer(s): Surgeon(s) and Role: * Bryan Painting MD - Primary * Vargas Reid MD - Fellow Procedure(s): Parathyroidectomy Incision/Procedure Start Time: 8:43 AM Incision Close/Procedure End Time: Anesthesia: General Findings: right lower enlarged parathyroid Input: Crystalloid: See anesthesia record Output: See anesthesia record Estimated Blood Loss: 5 mL Specimens: ID Type Source Tests Collected by Time Destination 1 : PRE PTH Blood BLOOD INTRAOPERATIVE PTH Bryan Painting MD 08/27/2022 8:58 AM 2 : POST PTH Blood BLOOD INTRAOPERATIVE PTH Bryan Painting MD 08/27/2022 9:13 AM A : right lower parathyroid- totally excised [id number] Tissue PARATHYROID GLAND RIGHT SURGICAL PATHOLOGY Bryan Painting MD 08/27/2022 9:00 AM Implants: * No implants in log * Drains: None Wound Classification: Class 1, operative wound clean, non-traumatic, with no inflammation encountered, no break in technique, gastrointestinal and genitor-urinary tracts not entered Pre-Op/Pre-Procedure Diagnosis: PHPT Post-Op/Post-Procedure Diagnosis: same Post-Op Plan: Recover in PACU. SIGNATURE: Vargas Reid MD DATE: 08/27/22 TIME: 9:29 AM [facility] 023 INTRAOPERATIVE PTH 153 pg/mL High 15-65 [facility] Comment on above: Order Comment: Speci men Type: BLOOD SPECIMEN Ordering Facility: [facility] Address: [address] [place] [address] Performed By: #### D NAAB, [id number] #### [facility] CLIA [id number] [address] [place] [address] OF [facility] INTRAOPERATIVE PTH 785 pg/mL High 15-65 [facility] Comment on above: Order Comment: Speci men Type: BLOOD SPECIMEN Ordering Facility: [facility] Address: [address] [place] [address] Performed By: #### D NAAB, [id number] #### [facility] CLIA [id number] [address] [place] [address] OF [facility] NURSING PROGon 08-27-2022 NURSING PROG HNO ID: [id number] Author: Romana Schrader RN Service: Nursing Author Type: Registered Nurse Type: Nursing Progress Note Filed: 08/27/2022 12:07 PM Note Text: Admission/Transfer Note PATIENT NAME: Jesus Wolf Patient admitted from PACU via bed in stable condition. Actions taken: Patient oriented to room, call light function, prescribed activities, Patient rights, and Quiet at night. This note was completed by: Romana Schrader Normal [facility] OPERATIVE NOon 08-27-2022 OPERATIVE NO HNO ID: [id number] Author: Bryan Painting MD Service: Endocrine Surgery Author Type: Physician Type: Operative Report Filed: 09/02/2022 9:43 AM Note Text: [facility] - Operative Report [address] [place] [address] [place] JESUS WOLF : 1955 AGE: 67. SEX: F PATIENT TYPE: A HOSP SVC: ENDOCRINE MEJIA LOCATION: [id number] ATTENDING PHYSICIAN: Bryan Painting M.D. CSN NUMBER: [id number] DATE OF SURGERY/PROCEDURE: 08/27/2022 INCISION/PROCEDURE START TIME: 08:43. INCISION CLOSE/PROCEDURE END TIME: Closure with dressing applied is 09:19. PREOPERATIVE DIAGNOSIS: Primary hyperparathyroidism. POSTOPERATIVE DIAGNOSIS: Primary hyperparathyroidism. SURGEON: Bryan Painting M.D. MATLAB DEVELOPER: Vargas Reid M.D. SURGERY/PROCEDURE: Right lower parathyroidectomy, intravenous sampling for parathyroid hormone levels, and intraoperative ultrasound. ANESTHESIA: General. OPERATIVE INDICATIONS: This is a 67-year-old female patient, who was recently evaluated for primary hyperparathyroidism. She is being taken to the operating room for parathyroidectomy at this point. The indications, alternatives, risks and benefits of the procedure have been explained to the patient and informed consent was obtained. OPERATIVE FINDINGS: Intraoperative ultrasound was performed. This demonstrated a thyroid gland that was overall normal in size with fine background echogenicity. Multiple subcentimeter cysts were seen throughout the entire thyroid gland, overall unremarkable. A hypoechoic mass measuring about 1 cm was seen below the right thyroid lobe. 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 No other parathyroid glands were seen. Benign-appearing lymph nodes were seen along the jugular chain bilaterally. Bilateral central neck exploration was performed, starting from the left side first. We were able to identify all 4 parathyroid glands in their expected location. The only one that was abnormal was the right lower parathyroid gland and it was enlarged and hypervascular. This was then circumferentially mobilized and a pre-excision PTH level was drawn from the right internal jugular vein. The right lower parathyroid gland was then excised in its entirety and measured 14 x 11 x 8 mm. Frozen evaluation revealed this to be hypercellular parathyroid tissue. Ten minutes after the excision, the post-excision PTH level was then drawn. The 2 upper parathyroid glands were each found posterior to the upper pole of the thyroid lobe while the left lower parathyroid gland was found in the upper portion of the left cervical thymus very medially. They were all normal in size in appearance. The pre-excision PTH level was 785, the post-excision PTH level was 153. The patient tolerated the procedure without any problem. DESCRIPTION OF PROCEDURE: OPERATIVE PROCEDURE: The patient was taken to the operating room and placed upon the table in a supine position. After induction of general endotracheal anesthesia, beanbag support was used to elevate the thoracic spine. The neck was gently hyperextended. Neck ultrasonography was performed using an [employer]oka Alpha 7 ultrasound machine with high-frequency linear array small parts transducer. The incision was marked at the appropriate location with the aid of the US findings. The neck was sterilely prepped and draped. A transverse incision of 3-cm was made along a natural skin crease and carried down through the platysma. Small superior and inferior subplatysmal flaps were raised. The strap muscles were divided longitudinally in midline of the neck and the sternohyoid and sternothyroid muscles were from one another on the anterior surface of the trachea. The plane between the thyroid gland and the strap muscles was developed with blunt dissection. We started our exploration on the right side first, with the above operative findings. Intravenous sampling of PTH levels were obtained from the right internal jugular vein. At the completion of the procedure, the wound was irrigated and checked for hemostasis. The strap muscles were then closed with individual layers of interrupted 4-0 Vicryl suture. The platysma was similarly approximated. The skin was temporarily approximated with a running 3-0 Prolene suture, sealed with surgical adhesives and covered with sterile strips. The suture was removed after the patient was successfully extubated. The patient tolerated procedure well. Attending surgeon, Dr. Painting, was present and scrubbed for the entire procedure. Dr. Reid was asked to be electrician assistant due to the absence of qualified General Surgery resident. He was critical in exposure, dissection, and closure of the case. ESTIMATED BLOOD LOSS: Minimal. DRAINS: None. SPECIMENS: Sent to Pathology, right lower parathyroid gland, totally excised, completely submitted. COUNTS: Sponge and instrument counts were (more content not included)... Normal [facility] SURGICAL PATHOLOGYon 023 CASE REPORT Normal [facility] Comment on above: Order Comment: Speci men Type: TISSUE SPECIMENOrdering Facility: [facility] Address: [address] [place] [id number] Result Comment: Surg [facility] Pathology Report Case: [id number] Authorizing Provider: Bryan Painting MD Collected: 08/27/2022 09:00 AM Ordering Location: Admitting Received: 08/27/2022 09:08 AM Pathologist: Julius Sutherland DMD Intraop: Dalila Park MD, PhD Specimen: PARATHYROID GLAND RIGHT, right lower parathyroid- totally excised [id number] Performed By: #### S ####[facility] LABCLIA [id number] [address] STATES OF [place] CLINICAL HISTORY Normal [facility] Comment on above: Order Comment: Speci men Type: TISSUE SPECIMENOrdering Facility: [facility] Address: [address] [place], [place] [id number] Result Comment: Pre- op diagnosis: Primary hyperparathyroidism (HCC) [E21.0] Performed By: #### S ####[facility] LABCLIA [id number] [address] STATES OF [facility] FINAL DIAGNOSIS Normal [facility] Comment on above: Order Comment: Speci men Type: TISSUE SPECIMENOrdering Facility: [facility] Address: [address] [place] [address] Result Comment: Righ t lower parathyroid gland, parathyroidectomy: - Hypercellular parathyroid gland tissue. Performed By: #### S ####[facility] LABCLIA [id number] [address] OF [facility] FINAL PERFORMING LAB Normal [facility] Comment on above: Order Comment: Speci men Type: TISSUE SPECIMENOrdering Facility: [facility] Address: [address] [place] [address] Result Comment: Diag nostic interpretation performed at [facility], [address] [id number] CLIA# [id number] Sheet Catcher: Forrest Rubio M.D. Performed By: #### S ####[facility] LABCLIA [id number] [address] OF [facility] GROSS DESCRIPTION Normal [facility] Comment on above: Order Comment: Speci men Type: TISSUE SPECIMENOrdering Facility: [facility] Address: [address] Result Comment: A. P ARATHYROID GLAND RIGHT Received fresh for intraoperative consultation and labeled as right lower parathyroid is a single piece of tissue that measures 1.4 cm x 1.1 cm x 0.8 cm and weighs 0.683 g. The specimen is serially sectioned and event marketing representative section is submitted for frozen evaluation as FS A1. Rest of the specimen is submitted for permanent as A2. Gross examination performed at [facility], [address] [place] [address] 08/27/22 9:27 AM Performed By: #### S ####[facility] LABIA [id number] [address] OF [place] INTRAOPERATIVE DIAGNOSIS Normal [facility] Comment on above: Order Comment: Speci men Type: TISSUE SPECIMENOrdering Facility: [facility] Address: [address] [place] [address] Result Comment: A. P ARATHYROID GLAND RIGHT FS A1: Hypercellular parathyroid. (Dr. Park) Intraoperative diagnosis performed at [facility], [address] [place] [address] CLIA# [id number] Performed By: #### S ####[facility] LABIA [id number] [address] OF [facility] Sarita 08-26-2022 GILMA Telephone (TRIP) ----- JESUS WOLF ([id number]) 1955 F Date Time Provider Department 08/26/22 BRYAN PAINTING During your visit today, we recorded the following information about you: Sarai Collado 08/26/2022 1:16 PM Signed 08/25/22 Negative Covid Text indexed Allergies As of Date: 08/26/2022 Noted Allergy Reaction DOFETILIDE 03/15/2020 14 - Other: See Comments 10 - Anaphylaxis Comments: V-tach SULFA (SULFONAMIDE ANTIBIOTICS) 02/21/2010 11 - Vomiting Comments: total body swelling and kidney shut down, body aches and rash CONTRAST DYE 08/28/2010 14 - Other: See Comments Comments: (Deep seafood) hot flashes, sweating. CODEINE 02/21/2010 14 - Other: See Comments Comments: severe headaches COMPAZINE (PROCHLORPERAZINE EDISY*02/21/2010 14 - Other: See Comments Comments: loss control of left side of face TETNUS (TETANUS VACCINES AND TOXO*02/21/2010 14 - Other: See Comments Comments: red spot in area of shot Date Reviewed: 07/31/2022 Reviewed by: Mara Cortes APRN.ASSET PROTECTION DETECTIVE - Fully Assessed Reason for Visit: Results [95] Cmt: Covid Prescriptions as of 08/26/2022 - MV with Oha-Adissikq-Cfcxxu (CENTRUM SILVER) 0.4 mg-300 mcg- 250 mcg tab Take 1 tablet by mouth once daily. - pantoprazole DR (PROTONIX) 40 mg tablet Take 1 tablet by mouth twice daily. - alendronate (FOSAMAX) 70 mg tablet Take 1 tablet by mouth one time a week. In the morning with a full glass of water, on an empty stomach. Do not take anything else by mouth or lie down for the next 30 minutes. - colestipol (COLESTID) 1 gram tablet Take 2 tablets by mouth twice daily. - mycophenolate Mofetil (CELLCEPT) 500 mg tablet take 1 tablet by mouth daily - Mesalamine (LIALDA) 1.2 gram EC tablet Take 4 tablets by mouth once daily. - celecoxib (CELEBREX) 200 mg capsule Take 200 mg by mouth twice daily. - hydrOXYchloroQUINE (PLAQUENIL) 200 mg tablet take 1 tablet by mouth twice a day with food - metoprolol succinate ER (TOPROL XL) 50 mg 24 hr tablet 50mg in am and 100mg in pm. - ferrous sulfate (IRON) 325 mg (65 mg iron) tablet Take 1 tablet by mouth once daily. - apixaban (ELIQUIS) 5 mg tab(s) Take 1 tablet by mouth twice daily. - cholestyramine-sucrose (QUESTRAN) 4 gram powder Take 4 g by mouth twice daily with meals. - sucralfate (CARAFATE) 100 mg/mL suspension Take 10 mL by mouth four times daily. - atorvastatin (LIPITOR) 40 mg tablet Take 1 tablet by mouth once daily. - Bifidobacterium infantis (ALIGN ORAL) Take by mouth once daily. - belimumab (BENLYSTA INTRAVENOUS) Inject intravenously. Patient reports she receives infusion every 3 months - venlafaxine ER (EFFEXOR XR) 150 mg 24 hr capsule Take 1 capsule by mouth once daily. - levothyroxine (SYNTHROID) 75 mcg tablet Take 75 mcg by mouth once daily. - furosemide (LASIX) 40 mg tablet Take 40 mg by mouth once daily. - busPIRone (BUSPAR) 10 mg tablet Take 10 mg by mouth daily at bedtime. - spironolactone (ALDACTONE) 50 mg tablet Take 50 mg by mouth once daily. - Cholecalciferol, Vitamin D3, 2,000 unit cap Take by mouth once daily. - vitamin b complex(B COMPLEX TAB) one daily - multivitamins w-minerals/lut(CENTRUM SILVER TAB) Take one(1) tablet daily. Facility-Administered Medications as of 08/26/2022 - perflutren lipid microspheres 1.3 mL in NaCl (PF) 0.9% 10 mL injection (DEFINITY) - sodium chloride 0.9 % (flush) 10 mL (BD POSIFLUSH) Problem List As Of Date 08/26/2022 Noted Resolved Edema [R60.9] 02/22/2010 Proteinuria [R80.9] 02/22/2010 Essential hypertension [I10] 02/22/2010 Atrial fibrillation (HCC) [I48.91] 02/22/2010 Membranous Glomerulonephritis [N05.2] 03/15/2010 Vitamin D Deficiency [E55.9] 05/03/2010 SLE (systemic lupus erythematosus) (HCC) [M32.9]07/16/2011 Fibromyalgia [M79.7] 03/10/2012 Sleep apnea [G47.30] 07/29/2012 Encounter for long-term (current) use of other *11/10/2012 Osteoarthritis of ankle and foot [M19.079] 01/02/2014 HALLUX VALGUS ACQUIRED [M20.10] 01/02/2014 Other hammer toe (acquired) [M20.40] 01/02/2014 Enthesopathy of ankle and tarsus, unspecified [*01/02/2014 Lesion of plantar nerve [G57.60] 01/02/2014 Neuralgia, neuritis, and radiculitis, unspecifi*01/02/2014 Foot pain, left [M79.672] 08/07/2015 Osteoarthrosis, localized, secondary, ankle or *08/07/2015 04/02/2020 Other synovitis and tenosynovitis, unspecified *08/07/2015 Osteoarthrosis of ankle and foot, left [M19.072]02/03/2017 Synovitis of left foot [M65.9] 02/03/2017 Synovitis of right foot [M65.9] 02/03/2017 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 Normal [facility] Covid-19 PCR ([facility])on SARS-CoV-2 (COVID-19) RNA RAVIN+probe Ql (Unsp spec) Not detected Normal NOT DETECTED [facility] Comment on above: Result Comment: This test is not yet approved or cleared by the [place] FDA. When there are no FDA-approved or cleared tests available, and other criteria are met, FDA can make tests available under an emergency access mechanism called an Emergency Use Authorization (EUA). The EUA for this test is supported by the Vegetable Tester of Health and Human Service's (HHS's) declaration that circumstances exist to justify the emergency use of in vitro diagnostics for the detection and/or diagnosis of the virus that causes COVID-19. This EUA will remain in effect (meaning this test can be used) for the duration of the COVID-19 declaration justifying emergency of IVDs, unless it is terminated or revoked by FDA (after which the test may no longer be used). When diagnostic testing is negative, the possibility of a false negative should be considered in the context of a patient's recent exposures and the presence of clinical signs and symptoms consistent with SARS-CoV-2. Performed By: #### L AMY MG, CMP #### [facility] [address] [address] [address] Dank Stein 08-22-2022 GILMA Telephone (ENSUMN) ----- JESUS WOLF ([id number]) 1955 F Date Time Provider Department 08/22/22 BRYAN PAINTING During your visit today, we recorded the following information about you: Sarai Menjivar RN 08/22/2022 1:59 PM Signed Jesus has arranged for her covid test and will hand carry the results with her to surgery. She will also fax a copy for her record. Sarai Menjivar RN Allergies As of Date: 08/22/2022 Noted Allergy Reaction DOFETILIDE 03/15/2020 14 - Other: See Comments 10 - Anaphylaxis Comments: V-tach SULFA (SULFONAMIDE ANTIBIOTICS) 02/21/2010 11 - Vomiting Comments: total body swelling and kidney shut down, body aches and rash CONTRAST DYE 08/28/2010 14 - Other: See Comments Comments: (Deep seafood) hot flashes, sweating. CODEINE 02/21/2010 14 - Other: See Comments Comments: severe headaches COMPAZINE (PROCHLORPERAZINE EDISY*02/21/2010 14 - Other: See Comments Comments: loss control of left side of face TETNUS (TETANUS VACCINES AND TOXO*02/21/2010 14 - Other: See Comments Comments: red spot in area of shot Date Reviewed: 07/31/2022 Reviewed by: Mara Cortes APRN.ASSET PROTECTION DETECTIVE - Fully Assessed Reason for Visit: Preparations For Surgery [898] Prescriptions as of 08/22/2022 - MV with Xve-Txltjamh-Qguili (CENTRUM SILVER) 0.4 mg-300 mcg- 250 mcg tab Take 1 tablet by mouth once daily. - pantoprazole DR (PROTONIX) 40 mg tablet Take 1 tablet by mouth twice daily. - alendronate (FOSAMAX) 70 mg tablet Take 1 tablet by mouth one time a week. In the morning with a full glass of water, on an empty stomach. Do not take anything else by mouth or lie down for the next 30 minutes. - colestipol (COLESTID) 1 gram tablet Take 2 tablets by mouth twice daily. - mycophenolate Mofetil (CELLCEPT) 500 mg tablet take 1 tablet by mouth daily - Mesalamine (LIALDA) 1.2 gram EC tablet Take 4 tablets by mouth once daily. - celecoxib (CELEBREX) 200 mg capsule Take 200 mg by mouth twice daily. - hydrOXYchloroQUINE (PLAQUENIL) 200 mg tablet take 1 tablet by mouth twice a day with food - metoprolol succinate ER (TOPROL XL) 50 mg 24 hr tablet 50mg in am and 100mg in pm. - ferrous sulfate (IRON) 325 mg (65 mg iron) tablet Take 1 tablet by mouth once daily. - apixaban (ELIQUIS) 5 mg tab(s) Take 1 tablet by mouth twice daily. - cholestyramine-sucrose (QUESTRAN) 4 gram powder Take 4 g by mouth twice daily with meals. - sucralfate (CARAFATE) 100 mg/mL suspension Take 10 mL by mouth four times daily. - atorvastatin (LIPITOR) 40 mg tablet Take 1 tablet by mouth once daily. - Bifidobacterium infantis (ALIGN ORAL) Take by mouth once daily. - belimumab (BENLYSTA INTRAVENOUS) Inject intravenously. Patient reports she receives infusion every 3 months - venlafaxine ER (EFFEXOR XR) 150 mg 24 hr capsule Take 1 capsule by mouth once daily. - levothyroxine (SYNTHROID) 75 mcg tablet Take 75 mcg by mouth once daily. - furosemide (LASIX) 40 mg tablet Take 40 mg by mouth once daily. - busPIRone (BUSPAR) 10 mg tablet Take 10 mg by mouth daily at bedtime. - spironolactone (ALDACTONE) 50 mg tablet Take 50 mg by mouth once daily. - Cholecalciferol, Vitamin D3, 2,000 unit cap Take by mouth once daily. - vitamin b complex(B COMPLEX TAB) one daily - multivitamins w-minerals/lut(CENTRUM SILVER TAB) Take one(1) tablet daily. Facility-Administered Medications as of 08/22/2022 - perflutren lipid microspheres 1.3 mL in NaCl (PF) 0.9% 10 mL injection (DEFINITY) - sodium chloride 0.9 % (flush) 10 mL (BD POSIFLUSH) Problem List As Of Date 08/22/2022 Noted Resolved Edema [R60.9] 02/22/2010 Proteinuria [R80.9] 02/22/2010 Essential hypertension [I10] 02/22/2010 Atrial fibrillation (HCC) [I48.91] 02/22/2010 Membranous Glomerulonephritis [N05.2] 03/15/2010 Vitamin D Deficiency [E55.9] 05/03/2010 SLE (systemic lupus erythematosus) (HCC) [M32.9]07/16/2011 Fibromyalgia [M79.7] 03/10/2012 Sleep apnea [G47.30] 07/29/2012 Encounter for long-term (current) use of other *11/10/2012 Osteoarthritis of ankle and foot [M19.079] 01/02/2014 HALLUX VALGUS ACQUIRED [M20.10] 01/02/2014 Other hammer toe (acquired) [M20.40] 01/02/2014 Enthesopathy of ankle and tarsus, unspecified [*01/02/2014 Lesion of plantar nerve [G57.60] 01/02/2014 Neuralgia, neuritis, and radiculitis, unspecifi*01/02/2014 Foot pain, left [M79.672] 08/07/2015 Osteoarthrosis, localized, secondary, ankle or *08/07/2015 04/02/2020 Other synovitis and tenosynovitis, unspecified *08/07/2015 Osteoarthrosis of ankle and foot, left [M19.072]02/03/2017 Synovitis of left foot [M65.9] 02/03/2017 Synovitis of right foot [M65.9] 02/03/2017 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 Normal [facility] CNPN Telephone (ENSSTEPHANY) ----- JESUS WOLF ([id number]) 1955 F Date Time Provider Department 08/22/22 BRYAN PAINTING During your visit today, we recorded the following information about you: Sarai Menjivar RN 08/22/2022 9:19 AM Signed Phoned and left Jesus a message to please call the office. We have not received a letter from her clinical nurse specialist in regards to her Eliquis. We have left multiple messages and have spoken with Dr. Couch office but have not gotten a response. Sarai Menjivar RN Allergies As of Date: 08/22/2022 Noted Allergy Reaction DOFETILIDE 03/15/2020 14 - Other: See Comments 10 - Anaphylaxis Comments: V-tach SULFA (SULFONAMIDE ANTIBIOTICS) 02/21/2010 11 - Vomiting Comments: total body swelling and kidney shut down, body aches and rash CONTRAST DYE 08/28/2010 14 - Other: See Comments Comments: (Deep seafood) hot flashes, sweating. CODEINE 02/21/2010 14 - Other: See Comments Comments: severe headaches COMPAZINE (PROCHLORPERAZINE EDISY*02/21/2010 14 - Other: See Comments Comments: loss control of left side of face TETNUS (TETANUS VACCINES AND TOXO*02/21/2010 14 - Other: See Comments Comments: red spot in area of shot Date Reviewed: 07/31/2022 Reviewed by: Mara Cortes APRN.ASSET PROTECTION DETECTIVE - Fully Assessed Reason for Visit: Patient Update [1234] Prescriptions as of 08/22/2022 - MV with Vwo-Tsitzprq-Isphdm (CENTRUM SILVER) 0.4 mg-300 mcg- 250 mcg tab Take 1 tablet by mouth once daily. - pantoprazole DR (PROTONIX) 40 mg tablet Take 1 tablet by mouth twice daily. - alendronate (FOSAMAX) 70 mg tablet Take 1 tablet by mouth one time a week. In the morning with a full glass of water, on an empty stomach. Do not take anything else by mouth or lie down for the next 30 minutes. - colestipol (COLESTID) 1 gram tablet Take 2 tablets by mouth twice daily. - mycophenolate Mofetil (CELLCEPT) 500 mg tablet take 1 tablet by mouth daily - Mesalamine (LIALDA) 1.2 gram EC tablet Take 4 tablets by mouth once daily. - celecoxib (CELEBREX) 200 mg capsule Take 200 mg by mouth twice daily. - hydrOXYchloroQUINE (PLAQUENIL) 200 mg tablet take 1 tablet by mouth twice a day with food - metoprolol succinate ER (TOPROL XL) 50 mg 24 hr tablet 50mg in am and 100mg in pm. - ferrous sulfate (IRON) 325 mg (65 mg iron) tablet Take 1 tablet by mouth once daily. - apixaban (ELIQUIS) 5 mg tab(s) Take 1 tablet by mouth twice daily. - cholestyramine-sucrose (QUESTRAN) 4 gram powder Take 4 g by mouth twice daily with meals. - sucralfate (CARAFATE) 100 mg/mL suspension Take 10 mL by mouth four times daily. - atorvastatin (LIPITOR) 40 mg tablet Take 1 tablet by mouth once daily. - Bifidobacterium infantis (ALIGN ORAL) Take by mouth once daily. - belimumab (BENLYSTA INTRAVENOUS) Inject intravenously. Patient reports she receives infusion every 3 months - venlafaxine ER (EFFEXOR XR) 150 mg 24 hr capsule Take 1 capsule by mouth once daily. - levothyroxine (SYNTHROID) 75 mcg tablet Take 75 mcg by mouth once daily. - furosemide (LASIX) 40 mg tablet Take 40 mg by mouth once daily. - busPIRone (BUSPAR) 10 mg tablet Take 10 mg by mouth daily at bedtime. - spironolactone (ALDACTONE) 50 mg tablet Take 50 mg by mouth once daily. - Cholecalciferol, Vitamin D3, 2,000 unit cap Take by mouth once daily. - vitamin b complex(B COMPLEX TAB) one daily - multivitamins w-minerals/lut(CENTRUM SILVER TAB) Take one(1) tablet daily. Facility-Administered Medications as of 08/22/2022 - perflutren lipid microspheres 1.3 mL in NaCl (PF) 0.9% 10 mL injection (DEFINITY) - sodium chloride 0.9 % (flush) 10 mL (BD POSIFLUSH) Problem List As Of Date 08/22/2022 Noted Resolved Edema [R60.9] 02/22/2010 Proteinuria [R80.9] 02/22/2010 Essential hypertension [I10] 02/22/2010 Atrial fibrillation (HCC) [I48.91] 02/22/2010 Membranous Glomerulonephritis [N05.2] 03/15/2010 Vitamin D Deficiency [E55.9] 05/03/2010 SLE (systemic lupus erythematosus) (HCC) [M32.9]07/16/2011 Fibromyalgia [M79.7] 03/10/2012 Sleep apnea [G47.30] 07/29/2012 Encounter for long-term (current) use of other *11/10/2012 Osteoarthritis of ankle and foot [M19.079] 01/02/2014 HALLUX VALGUS ACQUIRED [M20.10] 01/02/2014 Other hammer toe (acquired) [M20.40] 01/02/2014 Enthesopathy of ankle and tarsus, unspecified [*01/02/2014 Lesion of plantar nerve [G57.60] 01/02/2014 Neuralgia, neuritis, and radiculitis, unspecifi*01/02/2014 Foot pain, left [M79.672] 08/07/2015 Osteoarthrosis, localized, secondary, ankle or *08/07/2015 04/02/2020 Other synovitis and tenosynovitis, unspecified *08/07/2015 Osteoarthrosis of ankle and foot, left [M19.072]02/03/2017 Synovitis of left foot [M65.9] 02/03/2017 Synovitis of right foot [M65.9] 02/03/2017 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 Normal [facility] CNPN Telephone (TRIP) ----- JESUS WOLF ([id number]) 1955 F Date Time Provider Department 08/22/22 BRYAN PAINTING During your visit today, we recorded the following information about you: Sarai Menjivar RN 08/22/2022 12:28 PM Signed Jesus called the office today and told me that she had the second part of her stress done today. She talked to Dr. Conway's office and he still has not signed the form to clear her . The nurse thinks that he was waiting for the results of the stress test that she completed today. Jesus said that the nurse told her to hold her Eliquis on Thursday for the surgery UNLESS they contact her otherwise. She is going to follow up with Dr. Conway's office on Thursday and she will also be in contact with our office. JITENDRA Colunga RN 08/26/2022 11:05 AM Signed I wanted to confirm if your office has received clearance from Dr. Conway for this patient. Becky Ruvalcaba RN 08/26/2022 12:[address] Conway's office and left a message with his nurse-to please call us and confirm whether cardiac clearance has been given-as surgery is scheduled for tomorrow Becky Ruvalcaba RN 08/26/2022 12:55 PM Signed Mara Conway's nurse called me back she said she faxed clearance over to you 08/25-and is re faxing right now-She is sending it to [phone] Allergies As of Date: 08/22/2022 Noted Allergy Reaction DOFETILIDE 03/15/2020 14 - Other: See Comments 10 - Anaphylaxis Comments: V-tach SULFA (SULFONAMIDE ANTIBIOTICS) 02/21/2010 11 - Vomiting Comments: total body swelling and kidney shut down, body aches and rash CONTRAST DYE 08/28/2010 14 - Other: See Comments Comments: (Deep seafood) hot flashes, sweating. CODEINE 02/21/2010 14 - Other: See Comments Comments: severe headaches COMPAZINE (PROCHLORPERAZINE EDISY*02/21/2010 14 - Other: See Comments Comments: loss control of left side of face TETNUS (TETANUS VACCINES AND TOXO*02/21/2010 14 - Other: See Comments Comments: red spot in area of shot Date Reviewed: 07/31/2022 Reviewed by: Mara Cortes APRN.ASSET PROTECTION DETECTIVE - Fully Assessed Reason for Visit: Cardiac Clearance [4105] Prescriptions as of 08/26/2022 - MV with Mrr-Waxrgeqb-Rsobsn (CENTRUM SILVER) 0.4 mg-300 mcg- 250 mcg tab Take 1 tablet by mouth once daily. - pantoprazole DR (PROTONIX) 40 mg tablet Take 1 tablet by mouth twice daily. - alendronate (FOSAMAX) 70 mg tablet Take 1 tablet by mouth one time a week. In the morning with a full glass of water, on an empty stomach. Do not take anything else by mouth or lie down for the next 30 minutes. - colestipol (COLESTID) 1 gram tablet Take 2 tablets by mouth twice daily. - mycophenolate Mofetil (CELLCEPT) 500 mg tablet take 1 tablet by mouth daily - Mesalamine (LIALDA) 1.2 gram EC tablet Take 4 tablets by mouth once daily. - celecoxib (CELEBREX) 200 mg capsule Take 200 mg by mouth twice daily. - hydrOXYchloroQUINE (PLAQUENIL) 200 mg tablet take 1 tablet by mouth twice a day with food - metoprolol succinate ER (TOPROL XL) 50 mg 24 hr tablet 50mg in am and 100mg in pm. - ferrous sulfate (IRON) 325 mg (65 mg iron) tablet Take 1 tablet by mouth once daily. - apixaban (ELIQUIS) 5 mg tab(s) Take 1 tablet by mouth twice daily. - cholestyramine-sucrose (QUESTRAN) 4 gram powder Take 4 g by mouth twice daily with meals. - sucralfate (CARAFATE) 100 mg/mL suspension Take 10 mL by mouth four times daily. - atorvastatin (LIPITOR) 40 mg tablet Take 1 tablet by mouth once daily. - Bifidobacterium infantis (ALIGN ORAL) Take by mouth once daily. - belimumab (BENLYSTA INTRAVENOUS) Inject intravenously. Patient reports she receives infusion every 3 months - venlafaxine ER (EFFEXOR XR) 150 mg 24 hr capsule Take 1 capsule by mouth once daily. - levothyroxine (SYNTHROID) 75 mcg tablet Take 75 mcg by mouth once daily. - furosemide (LASIX) 40 mg tablet Take 40 mg by mouth once daily. - busPIRone (BUSPAR) 10 mg tablet Take 10 mg by mouth daily at bedtime. - spironolactone (ALDACTONE) 50 mg tablet Take 50 mg by mouth once daily. - Cholecalciferol, Vitamin D3, 2,000 unit cap Take by mouth once daily. - vitamin b complex(B COMPLEX TAB) one daily - multivitamins w-minerals/lut(CENTRUM SILVER TAB) Take one(1) tablet daily. Facility-Administered Medications as of 08/26/2022 - perflutren lipid microspheres 1.3 mL in NaCl (PF) 0.9% 10 mL injection (DEFINITY) - sodium chloride 0.9 % (flush) 10 mL (BD POSIFLUSH) Problem List As Of Date 08/22/2022 Noted Resolved Edema [R60.9] 02/22/2010 Proteinuria [R80.9] 02/22/2010 Essential hypertension [I10] 02/22/2010 Atrial fibrillation (HCC) [I48.91] 02/22/2010 Membranous Glomerulonephritis [N05.2] 03/15/2010 Vitamin D Deficiency [E55.9] 05/03/2010 SLE (systemic lupus erythematosus) (HCC) [M32.9]07/16/2011 Fibromyalgia [M79.7] 03/10/2012 (more content not included)... Normal [facility] Sarita 08-21-2022 [place]IL[place] Telephone (ENSUM[facility]) ----- JESUS WOLF ([id number]) 1955 F Date Time Provider Department 08/21/22 BRYAN PAINTING During your visit today, we recorded the following information about you: Sarai Menjivar RN 08/21/2022 10:45 AM Signed Phoned and spoke with Mara at Dr. Conway's office . She said that the clearance letter is waiting for Dr. Conway to sign. I told her that surgery is next week and she needs to know about when pt can stop the Eliquis. I asked her if Dr. Conway was in the office and she said he is seeing patients. I asked her to please try and expedite this . Sarai Menjivar RN Allergies As of Date: 08/21/2022 Noted Allergy Reaction DOFETILIDE 03/15/2020 14 - Other: See Comments 10 - Anaphylaxis Comments: V-tach SULFA (SULFONAMIDE ANTIBIOTICS) 02/21/2010 11 - Vomiting Comments: total body swelling and kidney shut down, body aches and rash CONTRAST DYE 08/28/2010 14 - Other: See Comments Comments: (Deep seafood) hot flashes, sweating. CODEINE 02/21/2010 14 - Other: See Comments Comments: severe headaches COMPAZINE (PROCHLORPERAZINE EDISY*02/21/2010 14 - Other: See Comments Comments: loss control of left side of face TETNUS (TETANUS VACCINES AND TOXO*02/21/2010 14 - Other: See Comments Comments: red spot in area of shot Date Reviewed: 07/31/2022 Reviewed by: Mara Cortes APRN.ASSET PROTECTION DETECTIVE - Fully Assessed Reason for Visit: Clinical Project Assistant - Other [3602] Prescriptions as of 08/21/2022 - MV with Lor-Xkyttxlk-Plzwgz (CENTRUM SILVER) 0.4 mg-300 mcg- 250 mcg tab Take 1 tablet by mouth once daily. - pantoprazole DR (PROTONIX) 40 mg tablet Take 1 tablet by mouth twice daily. - alendronate (FOSAMAX) 70 mg tablet Take 1 tablet by mouth one time a week. In the morning with a full glass of water, on an empty stomach. Do not take anything else by mouth or lie down for the next 30 minutes. - colestipol (COLESTID) 1 gram tablet Take 2 tablets by mouth twice daily. - mycophenolate Mofetil (CELLCEPT) 500 mg tablet take 1 tablet by mouth daily - Mesalamine (LIALDA) 1.2 gram EC tablet Take 4 tablets by mouth once daily. - celecoxib (CELEBREX) 200 mg capsule Take 200 mg by mouth twice daily. - hydrOXYchloroQUINE (PLAQUENIL) 200 mg tablet take 1 tablet by mouth twice a day with food - metoprolol succinate ER (TOPROL XL) 50 mg 24 hr tablet 50mg in am and 100mg in pm. - ferrous sulfate (IRON) 325 mg (65 mg iron) tablet Take 1 tablet by mouth once daily. - apixaban (ELIQUIS) 5 mg tab(s) Take 1 tablet by mouth twice daily. - cholestyramine-sucrose (QUESTRAN) 4 gram powder Take 4 g by mouth twice daily with meals. - sucralfate (CARAFATE) 100 mg/mL suspension Take 10 mL by mouth four times daily. - atorvastatin (LIPITOR) 40 mg tablet Take 1 tablet by mouth once daily. - Bifidobacterium infantis (ALIGN ORAL) Take by mouth once daily. - belimumab (BENLYSTA INTRAVENOUS) Inject intravenously. Patient reports she receives infusion every 3 months - venlafaxine ER (EFFEXOR XR) 150 mg 24 hr capsule Take 1 capsule by mouth once daily. - levothyroxine (SYNTHROID) 75 mcg tablet Take 75 mcg by mouth once daily. - furosemide (LASIX) 40 mg tablet Take 40 mg by mouth once daily. - busPIRone (BUSPAR) 10 mg tablet Take 10 mg by mouth daily at bedtime. - spironolactone (ALDACTONE) 50 mg tablet Take 50 mg by mouth once daily. - Cholecalciferol, Vitamin D3, 2,000 unit cap Take by mouth once daily. - vitamin b complex(B COMPLEX TAB) one daily - multivitamins w-minerals/lut(CENTRUM SILVER TAB) Take one(1) tablet daily. Facility-Administered Medications as of 08/21/2022 - perflutren lipid microspheres 1.3 mL in NaCl (PF) 0.9% 10 mL injection (DEFINITY) - sodium chloride 0.9 % (flush) 10 mL (BD POSIFLUSH) Problem List As Of Date 08/21/2022 Noted Resolved Edema [R60.9] 02/22/2010 Proteinuria [R80.9] 02/22/2010 Essential hypertension [I10] 02/22/2010 Atrial fibrillation (HCC) [I48.91] 02/22/2010 Membranous Glomerulonephritis [N05.2] 03/15/2010 Vitamin D Deficiency [E55.9] 05/03/2010 SLE (systemic lupus erythematosus) (HCC) [M32.9]07/16/2011 Fibromyalgia [M79.7] 03/10/2012 Sleep apnea [G47.30] 07/29/2012 Encounter for long-term (current) use of other *11/10/2012 Osteoarthritis of ankle and foot [M19.079] 01/02/2014 HALLUX VALGUS ACQUIRED [M20.10] 01/02/2014 Other hammer toe (acquired) [M20.40] 01/02/2014 Enthesopathy of ankle and tarsus, unspecified [*01/02/2014 Lesion of plantar nerve [G57.60] 01/02/2014 Neuralgia, neuritis, and radiculitis, unspecifi*01/02/2014 Foot pain, left [M79.672] 08/07/2015 Osteoarthrosis, localized, secondary, ankle or *08/07/2015 04/02/2020 Other synovitis and tenosynovitis, unspecified *08/07/2015 Osteoarthrosis of ankle and foot, left [M19.072]02/03/2017 Synovitis of left foot [M65.9] 02/03/2017 Synovitis of right foot [M65.9] 0 (more content not included)... Normal [facility] CARDIAC STRESS/REST INJE CTIONon 08-15-2022 [facility] CARDIAC STRESS/REST INJECTION Patient Name: JESUS WOLF STUDY: MYOCARDIAL PERFUSION STRESS TEST WITH LEXISCAN Performing facility: [facility], [address] [place] [address], [address], [place] [address] [facility] Provider: Yuriy Conway MD, FACC PCP: Dr. Treviño Supervising provider: Dennise Danielson INDICATION: HTN Hyperlipidemia A-fib Pre-operative risk assessment for Parathyroid scheduled at [facility] on 08-27-22. HISTORY: Gender: F; Age: 67 y/o ; Height: 170.1 cm; Weight: 123.1 kg. High Cholesterol; Arrhythmias; HTN; Lupus Denies smoking. COMPARISON: No comparison. ACCESSION NUMBER(S): [id number]; [id number]; [id number] ORDERING CLINICIAN: YURIY CONWAY TECHNIQUE: TWO DAY protocol. Stress injection: Date:08-15-22, 34.5 mCi of Myoview IV 20 seconds after rapid injection of Lexiscan. Rest injection: Date: 08-22-22, 34.4 mCi of Myoview IV at rest. The patient had a rapid injection of 0.4 mg of Lexiscan IV over 10 seconds. Imaging was performed by gated tomographic technique. Reason for Lexiscan: dizziness/unsteady/fall risk STRESS TEST DATA: Resting heart rate was 64 BPM. Resting blood pressure was 122/72 mmHg. Peak blood pressure was 100/60 mmHg. Peak heart rate was 81 BPM. Theophylline given 25mg IV. TEST TERMINATED DUE TO: Protocol completed FINDINGS: STRESS TEST RESULTS: Resting electrocardiogram revealed normal sinus rhythm. There were no significant ischemic ECG changes or dysrhythmias. The patient did not have chest pains/symptoms during procedure. During recovery the patient has some jaw pain relief with aminophylline infusion IMAGING RESULTS: Image quality was good. Rest and stress tomographic images were reviewed and revealed normal perfusion without evidence of ischemia, myocardial infarction, or left ventricular dilatation with stress. Overall left ventricular systolic function appeared to be normal without regional wall motion abnormalities. Ejection fraction was 62%. TID is 1.1 and is normal. There were no evidence of attenuation artifact. IMPRESSION: Normal Lexiscan Myoview cardiac perfusion stress test. No evidence of ischemia or myocardial infarction by perfusion imaging. Normal left ventricular systolic function, ejection fraction 62%. No previous study available for comparison. Electronically signed by: ALINE SOUZA MD Normal [facility] No Panel Informationon 08-15 [facility] [address] DO Work Phone: Sarita [facility] ----- JESUS WOLF ([id number]) 1955 F Date Time Provider Department 08/13/22 SRAVANI PINEDA During your visit today, we recorded the following information about you: Sravani Pineda RN 08/13/2022 11:02 AM Signed Spoke with Pinky nurse, at Dr. Conway's office ([phone]) re pending CARDS clearance and Eliquis instructions. She said she will give letter to Dr. Conway Also requested that she fax to [phone]([facility]) in addition to fax number in letter. Pinky Duran RN 08/21/2022 10:04 AM Signed Call placed to Dr Conway's office. Left a voice message on the nurse line that we are still waiting for Cardiac clearance letter and instructions to hold her Eliquis to be sent before upcoming surgery on 08/27/2022. Letter was faxed to office on 08/13/2022 and 08/15/2022 per below messages. Provided fax and phone numbers to [facility]. Allergies As of Date: 08/13/2022 Noted Allergy Reaction DOFETILIDE 03/15/2020 14 - Other: See Comments 10 - Anaphylaxis Comments: V-tach SULFA (SULFONAMIDE ANTIBIOTICS) 02/21/2010 11 - Vomiting Comments: total body swelling and kidney shut down, body aches and rash CONTRAST DYE 08/28/2010 14 - Other: See Comments Comments: (Deep seafood) hot flashes, sweating. CODEINE 02/21/2010 14 - Other: See Comments Comments: severe headaches COMPAZINE (PROCHLORPERAZINE EDISY*02/21/2010 14 - Other: See Comments Comments: loss control of left side of face TETNUS (TETANUS VACCINES AND TOXO*02/21/2010 14 - Other: See Comments Comments: red spot in area of shot Date Reviewed: 07/31/2022 Reviewed by: Mara Cortes APRN.ASSET PROTECTION DETECTIVE - Fully Assessed Reason for Visit: PreOp Call [[id number]] Cmt: CARDS clearance/Eliquis Prescriptions as of 08/21/2022 - MV with Xxj-Ieljvkox-Haespe (CENTRUM SILVER) 0.4 mg-300 mcg- 250 mcg tab Take 1 tablet by mouth once daily. - pantoprazole DR (PROTONIX) 40 mg tablet Take 1 tablet by mouth twice daily. - alendronate (FOSAMAX) 70 mg tablet Take 1 tablet by mouth one time a week. In the morning with a full glass of water, on an empty stomach. Do not take anything else by mouth or lie down for the next 30 minutes. - colestipol (COLESTID) 1 gram tablet Take 2 tablets by mouth twice daily. - mycophenolate Mofetil (CELLCEPT) 500 mg tablet take 1 tablet by mouth daily - Mesalamine (LIALDA) 1.2 gram EC tablet Take 4 tablets by mouth once daily. - celecoxib (CELEBREX) 200 mg capsule Take 200 mg by mouth twice daily. - hydrOXYchloroQUINE (PLAQUENIL) 200 mg tablet take 1 tablet by mouth twice a day with food - metoprolol succinate ER (TOPROL XL) 50 mg 24 hr tablet 50mg in am and 100mg in pm. - ferrous sulfate (IRON) 325 mg (65 mg iron) tablet Take 1 tablet by mouth once daily. - apixaban (ELIQUIS) 5 mg tab(s) Take 1 tablet by mouth twice daily. - cholestyramine-sucrose (QUESTRAN) 4 gram powder Take 4 g by mouth twice daily with meals. - sucralfate (CARAFATE) 100 mg/mL suspension Take 10 mL by mouth four times daily. - atorvastatin (LIPITOR) 40 mg tablet Take 1 tablet by mouth once daily. - Bifidobacterium infantis (ALIGN ORAL) Take by mouth once daily. - belimumab (BENLYSTA INTRAVENOUS) Inject intravenously. Patient reports she receives infusion every 3 months - venlafaxine ER (EFFEXOR XR) 150 mg 24 hr capsule Take 1 capsule by mouth once daily. - levothyroxine (SYNTHROID) 75 mcg tablet Take 75 mcg by mouth once daily. - furosemide (LASIX) 40 mg tablet Take 40 mg by mouth once daily. - busPIRone (BUSPAR) 10 mg tablet Take 10 mg by mouth daily at bedtime. - spironolactone (ALDACTONE) 50 mg tablet Take 50 mg by mouth once daily. - Cholecalciferol, Vitamin D3, 2,000 unit cap Take by mouth once daily. - vitamin b complex(B COMPLEX TAB) one daily - multivitamins w-minerals/lut(CENTRUM SILVER TAB) Take one(1) tablet daily. Facility-Administered Medications as of 08/21/2022 - perflutren lipid microspheres 1.3 mL in NaCl (PF) 0.9% 10 mL injection (DEFINITY) - sodium chloride 0.9 % (flush) 10 mL (BD POSIFLUSH) Problem List As Of Date 08/13/2022 Noted Resolved Edema [R60.9] 02/22/2010 Proteinuria [R80.9] 02/22/2010 Essential hypertension [I10] 02/22/2010 Atrial fibrillation (HCC) [I48.91] 02/22/2010 Membranous Glomerulonephritis [N05.2] 03/15/2010 Vitamin D Deficiency [E55.9] 05/03/2010 SLE (systemic lupus erythematosus) (HCC) [M32.9]07/16/2011 Fibromyalgia [M79.7] 03/10/2012 Sleep apnea [G47.30] 07/29/2012 Encounter for long-term (current) use of other *11/10/2012 Osteoarthritis of ankle and foot [M19.079] 01/02/2014 HALLUX VALGUS ACQUIRED [M20.10] 01/02/2014 Other hammer toe (acquired) [M20.40] 01/02/2014 Enthesopathy of ankle and tarsus, unspecified [*01/02/2014 Lesion of plantar nerve [G57.60] 01/02/2014 Neuralgia, neuritis, and radiculitis, unspecifi*01/02/2014 Hailey (more content not included)... Normal [facility] Office Visit (Cardiology)on 08-01-2022 Follow-up visit Diagnoses/Problems Assessed Paroxysmal atrial fibrillation (427.31) (I48.0) Essential hypertension, benign (401.1) (I10) Systemic lupus erythematosus (710.0) (M32.9) Hyperlipidemia (272.4) (E78.5) Anticoagulated (V58.61) (Z79.01) High risk medication use (V58.69) (Z79.899) Obstructive sleep apnea, adult (327.23) (G47.33) Never a smoker Class 2 severe obesity with serious comorbidity and body mass index (BMI) of 38.0 to 38.9 in adult (278.01,V85.38) (E66.01,Z68.38) Aneurysm, thoracic aortic (441.2) (I71.20) Preoperative clearance (V72.84) (Z01.818) Parathyroid disorder (252.9) (E21.5) Orders Aneurysm, thoracic aortic, Paroxysmal atrial fibrillation Echocardiogram; Status:Hold For - Scheduling,Retrospective Authorization; Requested for:[id number]; Class 2 severe obesity with serious comorbidity and body mass index (BMI) of 38.0 to 38.9 in adult Healthy Weight Tips; Status:Complete - Retrospective Authorization; Done: [id number] Some eating tips that can help you lose weight.; Status:Complete - Retrospective Authorization; Done: [id number] Essential hypertension, benign, Hyperlipidemia, Paroxysmal atrial fibrillation, Preoperative clearance NM Cardiac Stress/Rest Nuclear Med Order; Status:Hold For - Scheduling,Retrospective Authorization; Requested for:[id number]; Radiologist to Determine Optimal Study : Y What are the patient's signs and symptoms? : preop, paf, hdl, htn Paroxysmal atrial fibrillation IO EKG Electrocardiogram- 12 Lead; Status:Complete; Done: [id number] SocHx: Never a smoker Tobacco Use Screening; Status:Complete; Done: [id number] Patient Instructions Please bring all medicines, vitamins, and herbal supplements with you when you come to the office. Prescriptions will not be filled unless you are compliant with your follow up appointments or have a follow up appointment scheduled as per instruction of your physician. Refills should be requested at the time of your visit. Patient is scheduled in August for parathyroid surgery at [facility], they will be faxing request for clearance. Follow up in 1 year. Chief Complaint JESUS WOLF is being seen for an annual follow-up of. Patient is in the office after more than 2 years hiatus where she follows with the [facility] cardiology. She is in need for cardiac clearance prior to surgery. The patient has done well in the last couple of years but was not very happy with the care she was receiving at the [facility]. She had ablation for atrial fibrillation couple years back at [facility] with Dr. Chino with no recurrences. She is not on antiarrhythmic therapy but has been on anticoagulation with Eliquis. She has no indication previous coronary heart disease but never had a stress test or cardiac catheterization. Her last echocardiogram from September 2021 at the [facility] revealed mildly dilated ascending aorta at 4.6 cm. The rest of the study was unremarkable. Patient denies any palpitations orthopnea PND or lower extremity edema. Her weight remains a problem for her and she is trying to lose weight. She has sleep apnea but intolerant to CPAP machine. Review of system essentially unremarkable from a cardiovascular standpoint. Other review of system was unremarkable as well. Her physical examination is unremarkable for obesity. Her medication were reviewed which have been well-tolerated. ASSESSMENT AND PLAN: 1. Paroxysmal atrial fibrillation, status post successful radiofrequency ablation with pulmonary vein isolation at [facility] in 2020. She will continue on Eliquis EKG today confirmed normal sinus rhythm. 2. Sleep apnea, unable to utilize CPAP machine. She utilizes oxygen at night. 3. Systemic lupus, in remission, on medical therapy. 4. Severe obesity, patient is trying to lose weight with lifestyle modification and seems to be motivated. 5. Hyperlipidemia, on medical therapy, currently on 40 mg daily of atorvastatin. Lipid profile has been monitored closely and has been under control. 6. High-risk medication, on Eliquis no bleeding complications 7. Hypertension, on medical therapy, under control. 8. Systemic Lupus managed by rheumatology at [facility] on multiple medications and stable 9. Hypercalcemia caused by hyperparathyroidism for which the patient is contemplating surgery and need cardiac clearance. Since she did not have any previous cardiac investigation for ischemic heart disease should be scheduled for Lexiscan perfusion study. 10. Ascending aortic aneurysm measured 4.6 cm from echocardiogram September 2021, follow-up study in this coming September was scheduled. Controlling hypertension and keeping past medication was advised. Yuriy Conway MD, [facility] Surgical History Problems History of Appendectomy History of Cyst excision History of Foot surgery History of Hip replacement History of Tonsillectomy Past Medical History Problems History of Diastolic heart failure (428.30) (I5 (more content not included)... Normal [employer] Tobacco Screening.on 022 Adult depression screening assessment [facility] [address] DO Work Phone: Fall risk assessment a) No falls within the last year [facility] [place] [address] DO Work Phone: Tobacco use status [facility] b) No [facility] [address] DO Work Phone: No Panel Informationon 07-07 [facility] Comprehensive metabolic 2000 panelon 06-12-2022 Albumin [Mass/Vol] 4.2 g/dL 3.9 - 4.9 g/dL [facility] ALP [Catalytic activity/Vol] 134 U/L High 34 - 123 U/L [facility] ALT [Catalytic activity/Vol] 20 U/L 7 - 38 U/L [facility] Anion gap [Moles/Vol] 11 mmol/L 9 - 18 mmol/L [facility] AST [Catalytic activity/Vol] 23 U/L 13 - 35 U/L [facility] Bilirubin [Mass/Vol] 0.5 mg/dL 0.2 - 1 .3 mg/dL [facility] Calcium [Mass/Vol] 10.4 mg/dL High 8.5 - 10. 2 mg/dL [facility] Chloride [Moles/Vol] 109 mmol/L High 97 - 10 5 mmol/L [facility] CO2 [Moles/Vol] 22 mmol/L 22 - 30 mmol/L [facility] Creatinine [Mass/Vol] 1.27 mg/dL High 0.58 - 0.96 mg/dL [facility] Estimated Glomerular Filtration Rate 47 mL/min/1.73m Low >=60 mL/min/1.73 m [facility] Glucose [Mass/Vol] 104 mg/dL High 74 - 99 mg/dL [facility] Potassium [Moles/Vol] 5.6 mmol/L High 3.7 - 5.1 mmol/L [facility] Protein [Mass/Vol] 5.8 g/dL Low 6.3 - 8.0 g/dL [facility] Sodium [Moles/Vol] 142 mmol/L 136 - 144 mmol/L [facility] Urea nitrogen [Mass/Vol] 33 mg/dL High 7 - 21 mg/dL [facility] PTH INTACT BLDon 06-12-2022 Parathyrin.intact [Mass/Vol] 89 pg/mL High 15 - 65 pg/mL [facility] 1,25-dihydroxyvitamin D3 [Ma ss/Vol]on 04-22-2022 1,25 Dihydroxy Vitamin Total 35.6 pg/mL 19.9 - 79.3 pg/mL [facility] VITAMIN D 25 HYDROXYon 04-22 25-hydroxyvitamin D3 [Mass/Vol] 58.2 ng/mL 31.0 - 80.0 ng/mL [facility] PTH INTACT BLDon 04-18-2022 Parathyrin.intact [Mass/Vol] 83 pg/mL High 15 - 65 pg/mL [facility] DXA-AXIAL SKELETONon 022 LOWEST T-SCORE -2.1 [facility] 2019 NOVEL CORONAVIRUS (COVI D-19)on 03-13-2022 SARS-CoV-2 (COVID-19) RNA RAVIN+probe Ql (Unsp spec) Negative [facility] CBC W Auto Differential pane l (Bld)on 03-13-2022 Abs Immature Gran <0.03 <0.10 k/uL [facility] Basophils (Bld) [#/Vol] 0.06 10*3/uL <0.11 k/uL [facility] Basophils/100 WBC (Bld) 0.9 % [facility] Differential cell count method Nom (Bld) Auto [facility] Eosinophils (Bld) [#/Vol] 0.31 10*3/uL <0.46 k/uL [facility] Eosinophils/100 WBC (Bld) 4.5 % [facility] Erythrocyte distribution width (RBC) [Ratio] 12.4 % 11.5 - 15.0 % [facility] Hematocrit (Bld) [Volume fraction] 41.8 % 36.0 - 46.0 % [facility] Hemoglobin (Bld) [Mass/Vol] 13.8 g/dL 11.5 - 15.5 g/dL [facility] Immature Gran % 0.3 % [facility] Lymphocytes (Bld) [#/Vol] 2.00 10*3/uL 1.00 - 4.00 k/uL [facility] Lymphocytes/100 WBC (Bld) 29.2 % [facility] MCH (RBC) [Entitic mass] 32.5 pg 26.0 - 34.0 pg [facility] MCHC (RBC) [Mass/Vol] 33.0 g/dL 30.5 - 36.0 g/dL [facility] MCV (RBC) [Entitic vol] 98.4 fL 80.0 - 100.0 fL [facility] Monocytes (Bld) [#/Vol] 0.94 10*3/uL High <0.87 k/uL [facility] Monocytes/100 WBC (Bld) 13.7 % [facility] Neutrophils (Bld) [#/Vol] 3.52 10*3/uL 1.45 - 7.50 k/uL [facility] Neutrophils/100 WBC (Bld) 51.4 % [facility] Nucleated RBC (Bld) [#/Vol] 10*3/uL <0.01 k/uL [facility] Nucleated RBC/100 WBC (Bld) [Ratio] 0.0 /100 WBC [facility] Platelet mean volume (Bld) [Entitic vol] 10.5 fL 9.0 - 12.7 fL [facility] Platelets (Bld) [#/Vol] 254 10*3/uL 150 - 400 k/uL [facility] RBC (Bld) [#/Vol] 4.25 10*6/uL 3.90 - 5.2 0 m/uL [facility] WBC (Bld) [#/Vol] 6.85 10*3/uL 3.70 - 11.00 k/uL [facility] Comprehensive metabolic 2000 panelon 03-13-2022 Albumin [Mass/Vol] 4.3 g/dL 3.9 - 4.9 g/dL [facility] ALP [Catalytic activity/Vol] 112 U/L 34 - 123 U/L [facility] ALT [Catalytic activity/Vol] 30 U/L 7 - 38 U/L [facility] Anion gap [Moles/Vol] 10 mmol/L 9 - 18 mmol/L [facility] AST [Catalytic activity/Vol] 32 U/L 13 - 35 U/L [facility] Bilirubin [Mass/Vol] 0.6 mg/dL 0.2 - 1 .3 mg/dL [facility] Calcium [Mass/Vol] 11.0 mg/dL High 8.5 - 10. 2 mg/dL [facility] Chloride [Moles/Vol] 105 mmol/L 97 - 10 5 mmol/L [facility] CO2 [Moles/Vol] 23 mmol/L 22 - 30 mmol/L [facility] Creatinine [Mass/Vol] 1.01 mg/dL High 0.58 - 0.96 mg/dL [facility] Estimated Glomerular Filtration Rate 62 mL/min/1.73m >=60 mL/min/1.73 m [facility] Glucose [Mass/Vol] 86 mg/dL 74 - 99 mg/dL [facility] Potassium [Moles/Vol] 5.0 mmol/L 3.7 - 5.1 mmol/L [facility] Protein [Mass/Vol] 6.4 g/dL 6.3 - 8.0 g/dL [facility] Sodium [Moles/Vol] 138 mmol/L 136 - 144 mmol/L [facility] Urea nitrogen [Mass/Vol] 25 mg/dL High 7 - 21 mg/dL [facility] ESR Westergren method (Bld) [Velocity]on 03-13-2022 ESR (Bld) [Velocity] 10 mm/h 0 - 20 mm/hr [facility] Laboratory - Chemistry and C hemistry - challengeon 03-13-2022 CRP [Mass/Vol] 0.4 mg/dL <0.9 mg/dL [facility] Laboratory - Hematology and Cell countson 03-13-2022 Complement C3 [Mass/Vol] 167 mg/dL High 86 - 166 mg/dL [facility] Complement C4 [Mass/Vol] 38 mg/dL 13 - 46 mg/dL [facility] CBC AUTO DIFFon 02-13-2022 BASO # 0.1 103/ul Normal 0.0-0.1 [facility] Comment on above: Performed By: #### L IPA, MG, CMP #### [facility] [address] [place] [address] Dr. Dank Lovelace Basophils/100 WBC (Bld) 0.4 % Normal 0.2-2.0 [facility] Comment on above: Performed By: #### L IPA, MG, CMP #### [facility] [address] [place] [address] Dr. Dank Lovelace EO # 0.2 103/ul Normal 0.0-0.7 [facility] Comment on above: Performed By: #### L IPA, MG, CMP #### [facility] [address] [place] [address] Dr. Dank Lovelace Eosinophils/100 WBC (Bld) 2.0 % Normal 0.9-7.0 [facility] Comment on above: Performed By: #### L IPA, MG, CMP #### [facility] [address] [address] [address] Dank Lovelace Erythrocyte distribution width (RBC) [Ratio] 12.1 % Normal 11.0-15.0 [facility] Comment on above: Performed By: #### L IPA, MG, CMP #### [facility] [address] [address] [address] Dank Lovelace Hematocrit (Bld) [Volume fraction] 48.6 % Critically high 36.0-48.0 [facility] Comment on above: Performed By: #### L IPA, MG, CMP #### [facility] [address] [address] [address] Dank Lovelace Hemoglobin (Bld) [Mass/Vol] 16.2 g/dL Critically high 12.0-16.0 [facility] Comment on above: Performed By: #### L IPA, MG, CMP #### [facility] [address] [place] [address] Dr. Dank Lovelace IG # 0.06 10e3/ul Critically high 0.00-0.03 [facility] Comment on above: Performed By: #### L IPA, MG, CMP #### [facility] [address] [address] [address] Dank Lovelace IG % 0.5 % Normal 0.0-0.5 [facility] Comment on above: Performed By: #### L IPA, MG, CMP #### [facility] [address] [address] [address] aDnk Lovelace LYMPH # 1.9 103/ul Normal 1.2-3.8 [facility] Comment on above: Performed By: #### L IPA, MG, CMP #### [facility] [address] [address] [address] Dank Lovelace Lymphocytes/100 WBC (Bld) 16.0 % Critically low 20.5-60.0 [facility] Comment on above: Performed By: #### L IPA, MG, CMP #### [facility] [address] [place] [address] Dr. Dank Lovelace MANUAL DIFF REQ NO Normal [facility] Comment on above: Performed By: #### L IPA, MG, CMP #### [facility] [address] [place] [address] Dr. Dank Lovelace MCH (RBC) [Entitic mass] 32.3 pg Normal 26.7-34.0 [facility] Comment on above: Performed By: #### L IPA, MG, CMP #### [facility] [address] [place] [address] Dr. Dank Lovelace MCHC (RBC) [Mass/Vol] 33.3 g/dL Normal 29.9-35.2 [facility] Comment on above: Performed By: #### L IPA, MG, CMP #### [facility] [address] [place] [address] Dr. Dank Lovelace MCV (RBC) [Entitic vol] 97.0 fL Normal 81.0-99.0 [facility] Comment on above: Performed By: #### L IPA, MG, CMP #### [facility] [address] [place] [address] Dr. Dank Lovelace MONO # 1.3 103/ul Critically high 0.3-0.8 [facility] Comment on above: Performed By: #### L IPA, MG, CMP #### [facility] [address] [place] [address] Dr. Dank Lovelace Monocytes/100 WBC (Bld) 11.2 % Normal 1.7-12.0 [facility] Comment on above: Performed By: #### L IPA, MG, CMP #### [facility] [address] [place] [address] Dr. Dank Lovelace NEUT # 8.2 103/ul Critically high 1.4-6.5 [facility] Comment on above: Performed By: #### L IPA, MG, CMP #### [facility] [address] [place] [address] Dr. Dank Lovelace Neutrophils/100 WBC (Bld) 69.9 % Normal 43.0-75.0 [facility] Comment on above: Performed By: #### L IPA, MG, CMP #### [facility] [address] [place] [address] Dr. Dank Lovelace Platelet mean volume (Bld) [Entitic vol] 10.0 fL Normal 9.5-13.5 [facility] Comment on above: Performed By: #### L IPA, MG, CMP #### [facility] [address] [address] [address] Dank Lovelace PLT 317 103/ul Normal 150-450 [facility] Comment on above: Performed By: #### L IPA, MG, CMP #### [facility] [address] [address] [address] Dank Lovelace RBC 5.01 106/ul Normal 4.20-5.40 [facility] Comment on above: Performed By: #### L IPA, MG, CMP #### [facility] [address] [place] [address] Dr. Dank Lovelace WBC 11.7 103/ul Critically high 4.0-11.0 [facility] Comment on above: Performed By: #### L IPA, MG, CMP #### [facility] [address] [place] [address] Dr. Dank Lovelace ER URINE PROFILEon 2 Bilirubin Ql (U) Negative Normal NEGATIVE [facility] Comment on above: Performed By: #### E RUR #### [facility] [address] [place] [address] Dr. Dank Lovelace Clarity (U) CLEAR Normal CLEAR [facility] Comment on above: Performed By: #### E RUR #### [facility] [address] [address] [address] Dank Lovelace Color (U) LT. YELLOW Normal YELLOW [facility] Comment on above: Performed By: #### E RUR #### [facility] [address] [place] [address] Dr. aDnk BE A micrscopic examina tion will be performed if indicated. Normal [facility] Comment on above: Performed By: #### E RUR #### [facility] [address] [place] [address] Dr. Dank Lovelace Glucose Ql (U) Negative Normal NEGATIVE [facility] Comment on above: Performed By: #### E RUR #### [facility] [address] [address] [address] Dank Lovelace Hemoglobin Ql (U) Negative Normal NEGATIVE [facility] Comment on above: Performed By: #### E RUR #### [facility] [address] [place] [address] Dr. Dank Lovelace Ketones Ql (U) Negative Normal NEGATIVE [facility] Comment on above: Performed By: #### E RUR #### [facility] [address] [place] [address] Dr. Dank Lovelace LEUKOCYTES Negative Normal NEGATIVE [facility] Comment on above: Performed By: #### E RUR #### [facility] [address] [place] [address] Dr. Dank Lovelace Nitrite Ql (U) Negative Normal NEGATIVE [facility] Comment on above: Performed By: #### E RUR #### [facility] [address] [place] [address] Dr. Dank Lovelace pH (U) 5.5 [pH] Normal 5-9 [facility] Comment on above: Performed By: #### E RUR #### [facility] [address] [place] [address] Dr. Dank Lovelace SPEC GRAVITY 1.015 Normal 1.005-<=1.0 25 [facility] Comment on above: Performed By: #### E RUR #### [facility] [address] [place] [address] Dr. Dank Lovelace UA PROTEIN Negative Normal NEGATIVE/ TRACE [facility] Comment on above: Performed By: #### E RUR #### [facility] [address] [place] [address] Dr. Dank Lovelace UR MICRO IND NOT INDICATED Normal [facility] Comment on above: Performed By: #### E RUR #### [facility] [address] [place] [address] Dr. Dank Lovelace Urobilinogen Qn (U) 0.2 {Simon'U}/dL Normal 0.2 - 1. 0 [facility] Comment on above: Performed By: #### E RUR #### [facility] [address] [place] [address] Dr. Dank Lovelace LIPASEon 02-13-2022 Lipase [Catalytic activity/Vol] 39.0 U/L Critically low 73.0-393.0 [facility] Comment on above: Performed By: #### L IPA, MG, CMP #### [facility] [address] [place] [address] Dr. Dank Lovelace MAGNESIUMon 02-13-2022 Magnesium [Mass/Vol] 1.4 mg/dL Critically low 1.8-2.4 [facility] Comment on above: Performed By: #### L IPA, MG, CMP #### [facility] [address] [place] [address] Dr. Dank Lovelace PROF 14(COMP METB)on 022 Albumin [Mass/Vol] 3.8 g/dL Normal 3.4-5.0 [facility] Comment on above: Performed By: #### L IPA, MG, CMP #### [facility] [address] [place] [address] Dr. Dank Lovelace Albumin/Globulin [Mass ratio] 0.9 {ratio} Normal [facility] Comment on above: Performed By: #### L IPA, MG, CMP #### [facility] [address] [place] [address] Dr. Dank Lovelace ALP [Catalytic activity/Vol] 150 U/L Critically high 46-116 [facility] Comment on above: Performed By: #### L IPA, MG, CMP #### [facility] [address] [place] [address] Dr. Dank Lovelace ALT [Catalytic activity/Vol] 31 U/L Normal 14-59 [facility] Comment on above: Performed By: #### L IPA, MG, CMP #### [facility] [address] [place] [address] Dr. Dank Lovelace Anion gap [Moles/Vol] 16.4 mmol/L Normal [facility] Comment on above: Performed By: #### L IPA, MG, CMP #### [facility] [address] [address] [address] Dank Lovelace AST [Catalytic activity/Vol] 18 U/L Normal 15-37 [facility] Comment on above: Performed By: #### L IPA, MG, CMP #### [facility] [address] [address] [address] Dank Lovelace Bilirubin [Mass/Vol] 0.4 mg/dL Normal 0.2-1.0 [facility] Comment on above: Performed By: #### L IPA, MG, CMP #### [facility] [address] [address] [address] Dank Lovelace Calcium [Mass/Vol] 11.7 mg/dL Critically high 8.5-10.1 [facility] Comment on above: Performed By: #### L IPA, MG, CMP #### [facility] [address] [place] [address] Dr. Dank Lovelace Chloride [Moles/Vol] 103 mmol/L Normal 98-107 [facility] Comment on above: Performed By: #### L IPA, MG, CMP #### [facility] [address] [address] [address] Dank Lovelace CO2 [Moles/Vol] 20.4 mmol/L Critically low 21.0-32.0 [facility] Comment on above: Performed By: #### L IPA, MG, CMP #### [facility] [address] [address] [address] Dank Lovelace Creatinine [Mass/Vol] 1.14 mg/dL Critically high 0.55-1.02 [facility] Comment on above: Performed By: #### L IPA, MG, CMP #### [facility] [address] [address] [address] Dank Lovelace EGFR-AF BAHRAINI 58 mL/min/1.73m2 Critically low >=60 [facility] Comment on above: Performed By: #### L IPA, MG, CMP #### [facility] [address] [address] [address] Dank Lovelace EGFR-NON AF BAHRAINI 48 mL/min/1.73m2 Critically low >=60 [facility] Comment on above: Performed By: #### L IPA, MG, CMP #### [facility] [address] [place] [address] Dr. Dank Lovelace Globulin (S) [Mass/Vol] 4.4 g/dL Normal [facility] Comment on above: Performed By: #### L IPA, MG, CMP #### [facility] [address] [place] [address] Dr. Dank Lovelace Glucose [Mass/Vol] 124 mg/dL Critically high 74-106 [facility] Comment on above: Performed By: #### L IPA, MG, CMP #### [facility] [address] [place] [address] Dr. Dank Lovelace Potassium [Moles/Vol] 4.8 mmol/L Normal 3.5-5.1 [facility] Comment on above: Performed By: #### L IPA, MG, CMP #### [facility] [address] [place] [address] Dr. Dank Lovelace Protein [Mass/Vol] 8.2 g/dL Normal 6.4-8.2 [facility] Comment on above: Performed By: #### L IPA, MG, CMP #### [facility] [address] [place] [address] Dr. Dank Lovelace Sodium [Moles/Vol] 135 mmol/L Critically low 136-145 [facility] Comment on above: Performed By: #### L IPA, MG, CMP #### [facility] [address] [place] [address] Dr. Dank Lovleace Urea nitrogen [Mass/Vol] 28.0 mg/dL Critically high 7.0-18.0 [facility] Comment on above: Performed By: #### L IPA, MG, CMP #### [facility] [address] [place] [address] Dr. Dank Lovelace Urea nitrogen/Creatinine [Mass ratio] 24.6 mg/mg Normal [facility] Comment on above: Performed By: #### L IPA, MG, CMP #### [facility] [address] [place], [place] [address] Dr. Dank Lovelace Activated partial thrombopla stin time (aPTT) in platelet poor plasma by coagulation aOrdered By: Hussain Cat on 02-08-2022 aPTT Coag (PPP) [Time] 34.7 s 25.1-36.5 [facility] Albumin [Mass/volume] in Ser um or PlasmaOrdered By: Hussain Cat on 02-08-2022 Albumin [Mass/Vol] 3.5 g/dL 3.2-5.5 [facility] Basophils Auto (Bld) [#/Vol] Ordered By: [facility] on 02-08-2022 Basophils (Bld) [#/Vol] 0.0 10*3/uL 0.0-0.2 [facility] Basophils/100 WBC Auto (Bld) Ordered By: [facility] on 02-08-2022 Basophils/100 WBC (Bld) 0.0 % [facility] Blood hemoglobin measurement (mass/volume)Ordered By: [facility] on 02-08-2022 Hemoglobin (Bld) [Mass/Vol] 13.3 g/dL 11.8-15.4 [facility] Blood leukocytes automated c ount (number/volume)Ordered By: [facility] on 02-08-2022 WBC (Bld) [#/Vol] 11.8 10*3/uL 4.5-11.0 [facility] C-Reactive Proteinon 022 C-Reactive Protein 3.9 mg/dL High 0.0-1.0 [facility] Comment on above: Result Comment: PERF ORMED BY: [facility] [address] [place] [address] PATHOLOGIST [employer] ERICK FORDE M.D. Performed By: #### E SR, CRP ####[facility] [id number] [place] [address] [facility] Complete Blood Count Auto Di ffon 02-08-2022 Basophils (Bld) [#/Vol] 0.0 10*3/uL Normal 0.0-0.2 [facility] Comment on above: Result Comment: PERF ORMED BY: [facility] [address] PATHOLOGIST [employer] ERICK FORDE M.D. Performed By: #### C BC, PT, PTT, CMP, MG, [id number], TSH3 wRFLX, [id number] ####[address] Basophils/100 WBC (Bld) 0.0 % Normal . [facility] Comment on above: Performed By: #### C BC, PT, PTT, CMP, MG, [id number], TSH3 wRFLX, [id number] ####[address] Eosinophils (Bld) [#/Vol] 0.0 10*3/uL Normal 0.0-0.45 [facility] Comment on above: Performed By: #### C BC, PT, PTT, CMP, MG, [id number], TSH3 wRFLX, [id number] ####[address] Eosinophils/100 WBC (Bld) 0.0 % Normal . [facility] Comment on above: Performed By: #### C BC, PT, PTT, CMP, MG, [id number], TSH3 wRFLX, [id number] ####[address] Erythrocyte distribution width (RBC) [Ratio] 13.0 % Normal 11.9-15.3 [facility] Comment on above: Performed By: #### C BC, PT, PTT, CMP, MG, [id number], TSH3 wRFLX, [id number] ####[address] Hematocrit (Bld) [Volume fraction] 39.0 % Normal 34.0-46.4 [facility] Comment on above: Performed By: #### C BC, PT, PTT, CMP, MG, [id number], TSH3 wRFLX, [id number] ####[address] Hemoglobin (Bld) [Mass/Vol] 13.3 g/dL Normal 11.8-15.4 [facility] Comment on above: Performed By: #### C BC, PT, PTT, CMP, MG, [id number], TSH3 wRFLX, [id number] ####[address] Lymphocytes (Bld) [#/Vol] 0.7 10*3/uL Low 1.00-4.8 [facility] Comment on above: Performed By: #### C BC, PT, PTT, CMP, MG, [id number], TSH3 wRFLX, [id number] ####[address] Lymphocytes/100 WBC (Bld) 6.1 % Normal . [facility] Comment on above: Performed By: #### C BC, PT, PTT, CMP, MG, [id number], TSH3 wRFLX, [id number] ####[address] MCH (RBC) [Entitic mass] 32.7 pg Normal 24.7-34.3 [facility] Comment on above: Performed By: #### C BC, PT, PTT, CMP, MG, [id number], TSH3 wRFLX, [id number] ####[address] MCV (RBC) [Entitic vol] 96.2 fL Normal 80-100 [facility] Comment on above: Performed By: #### C BC, PT, PTT, CMP, MG, [id number], TSH3 wRFLX, [id number] ####[address] Mean Corpuscular HGB Conc 34.0 g/dL Normal 32.0-35.0 [facility] Comment on above: Performed By: #### C BC, PT, PTT, CMP, MG, [id number], TSH3 wRFLX, [id number] ####[address] Monocytes (Bld) [#/Vol] 0.3 10*3/uL Normal 0.0-0.8 [facility] Comment on above: Performed By: #### C BC, PT, PTT, CMP, MG, [id number], TSH3 wRFLX, [id number] ####[address] Monocytes/100 WBC (Bld) 2.5 % Normal . [facility] Comment on above: Performed By: #### C BC, PT, PTT, CMP, MG, [id number], TSH3 wRFLX, [id number] ####[address] Neutrophils (Bld) [#/Vol] 10.8 10*3/uL High 1.8-7.7 [facility] Comment on above: Performed By: #### C BC, PT, PTT, CMP, MG, [id number], TSH3 wRFLX, [id number] ####[address] Neutrophils/100 WBC (Bld) 91.4 % Normal . [facility] Comment on above: Performed By: #### C BC, PT, PTT, CMP, MG, [id number], TSH3 wRFLX, [id number] ####[address] Nucleated RBC/100 WBC (Bld) [Ratio] 0.0 % Normal 0-0.5 [facility] Comment on above: Performed By: #### C BC, PT, PTT, CMP, MG, [id number], TSH3 wRFLX, [id number] ####[id number] [facility] Platelet mean volume (Bld) [Entitic vol] 8.6 fL Normal 6.3-10.7 [facility] Comment on above: Performed By: #### C BC, PT, PTT, CMP, MG, [id number], TSH3 wRFLX, [id number] ####[address] Platelets (Bld) [#/Vol] 276 10*3/uL Normal 150-450 [facility] Comment on above: Performed By: #### C BC, PT, PTT, CMP, MG, [id number], TSH3 wRFLX, [id number] ####[address] RBC (Bld) [#/Vol] 4.06 10*6/uL Normal 3.60-5.00 [facility] Comment on above: Performed By: #### C BC, PT, PTT, CMP, MG, [id number], TSH3 wRFLX, [id number] ####[address] WBC (Bld) [#/Vol] 11.8 10*3/uL High 4.5-11.0 [facility] Comment on above: Performed By: #### C BC, PT, PTT, CMP, MG, [id number], TSH3 wRFLX, [id number] ####[address] Comprehensive Metabolic Pane zoë 02-08-2022 Albumin [Mass/Vol] 3.5 g/dL Normal 3.2-5.5 [facility] Comment on above: Performed By: #### C BC, PT, PTT, CMP, MG, [id number], TSH3 wRFLX, [id number] ####[address] Albumin/Globulin [Mass ratio] 1.3 {ratio} Normal [facility] Comment on above: Performed By: #### C BC, PT, PTT, CMP, MG, [id number], TSH3 wRFLX, [id number] ####[address] [place] [address] [facility] ALP [Catalytic activity/Vol] 87 U/L Normal 32-92 [facility] Comment on above: Performed By: #### C BC, PT, PTT, CMP, MG, [id number], TSH3 wRFLX, [id number] ####[address] [id number] [facility] ALT [Catalytic activity/Vol] 24 U/L Normal 10-60 [facility] Comment on above: Performed By: #### C BC, PT, PTT, CMP, MG, [id number], TSH3 wRFLX, [id number] ####[address] AST [Catalytic activity/Vol] 22 U/L Normal 10-42 [facility] Comment on above: Performed By: #### C BC, PT, PTT, CMP, MG, [id number], TSH3 wRFLX, [id number] ####[id number] [facility] Bilirubin [Mass/Vol] 0.8 mg/dL Normal 0.3-1.2 [facility] Comment on above: Performed By: #### C BC, PT, PTT, CMP, MG, [id number], TSH3 wRFLX, [id number] ####[id number] [facility] Calcium [Mass/Vol] 10.2 mg/dL Normal 8.2-10.2 [facility] Comment on above: Performed By: #### C BC, PT, PTT, CMP, MG, [id number], TSH3 wRFLX, [id number] ####[address] [id number] [facility] Chloride [Moles/Vol] 103 mmol/L Normal 95-114 [facility] Comment on above: Performed By: #### C BC, PT, PTT, CMP, MG, [id number], TSH3 wRFLX, [id number] ####[address] [id number] [facility] CO2 [Moles/Vol] 22.3 mmol/L Normal 22.0-30.0 [facility] Comment on above: Performed By: #### C BC, PT, PTT, CMP, MG, [id number], TSH3 wRFLX, [id number] ####[address] Creatinine [Mass/Vol] 0.90 mg/dL Normal 0.44-1.03 [facility] Comment on above: Performed By: #### C BC, PT, PTT, CMP, MG, [id number], TSH3 wRFLX, [id number] ####[address] Creatinine Clr Calc Pharmacy 80.69 [facility] Comment on above: Performed By: #### C BC, PT, PTT, CMP, MG, [id number], TSH3 wRFLX, [id number] ####[address] Estimated GFR ( Adolfo > 60 [facility] Comment on above: Result Comment: GFR estimated reference range: According to KDOQI guidelines, <60 ml/min/1.73m2 is sufficient to diagnose a patient with chronic kidney disease. Performed By: #### C BC, PT, PTT, CMP, MG, [id number], TSH3 wRFLX, [id number] ####[address] Estimated GFR (Non- Am > 60 [facility] Comment on above: Performed By: #### C BC, PT, PTT, CMP, MG, [id number], TSH3 wRFLX, [id number] ####[address] Globulin (S) [Mass/Vol] 2.7 g/dL [facility] Comment on above: Performed By: #### C BC, PT, PTT, CMP, MG, [id number], TSH3 wRFLX, [id number] ####[id number] [facility] Glucose [Mass/Vol] 119 mg/dL High 70-100 [facility] Comment on above: Result Comment: [facility] Glucose Reference Range is dependent on time and content of last meal. Glucose of more than 200 mg/dL in a nonstressed, ambulatory subject supports the diagnosis of Diabetes Mellitus. ADA recommended reference range Performed By: #### C BC, PT, PTT, CMP, MG, [id number], TSH3 wRFLX, [id number] ####[address] [address] [facility] Potassium [Moles/Vol] 4.6 mmol/L Normal 3.5-5.1 [facility] Comment on above: Performed By: #### C BC, PT, PTT, CMP, MG, [id number], TSH3 wRFLX, [id number] ####[address] [address] [facility] Protein [Mass/Vol] 6.2 g/dL Normal 6.1-7.9 [facility] Comment on above: Performed By: #### C BC, PT, PTT, CMP, MG, [id number], TSH3 wRFLX, [id number] ####[address] [address] [facility] Sodium [Moles/Vol] 139 mmol/L Normal 136-146 [facility] Comment on above: Performed By: #### C BC, PT, PTT, CMP, MG, [id number], TSH3 wRFLX, [id number] ####[address] [address] [facility] Urea nitrogen [Mass/Vol] 24 mg/dL High 9-23 [facility] Comment on above: Performed By: #### C BC, PT, PTT, CMP, MG, [id number], TSH3 wRFLX, [id number] ####[address] [address] [facility] Creatinine and Glomerular fi ltration rate.predicted panel (S/P/Bld)Ordered By: Hussain Cat on 02-08-2022 Creatinine [Mass/Vol] 0.90 mg/dL 0.44-1.03 [facility] Eosinophils Auto (Bld) [#/Vo l]Ordered By: Hussain Cat on 02-08-2022 Eosinophils (Bld) [#/Vol] 0.0 10*3/uL 0.0-0.45 [facility] Eosinophils/100 WBC Auto (Bl d)Ordered By: Hussain Cat on 02-08-2022 Eosinophils/100 WBC (Bld) 0.0 % [facility] Erythrocyte Sedimentation Ra naresh 02-08-2022 ESR (Bld) [Velocity] 40 mm/h High 0 [facility] Comment on above: Result Comment: PERF ORMED BY: [facility] [address] [facility] [place] [address] PATHOLOGIST [employer]EL CONTRO[employer]ER ERICK FORDE M.D. Performed By: #### E SR, CRP ####[facility] [id number] Erythrocyte distribution wid th Auto (RBC) [Ratio]Ordered By: Hussain Cat on 02-08-2022 Erythrocyte distribution width (RBC) [Ratio] 13.0 % 11.9-15.3 [facility] Erythrocyte sedimentation ra te by Photometric methodOrdered By: Rachelle Frazier on 02-08-2022 ESR Photometric method (Bld) [Velocity] 40 mm/hr [facility] Estimated glomerular filtrat ion rate (GFR) non- AmericanOrdered By: Hussain Cat on 02-08-2022 GFR/1.73 sq M.predicted among non-blacks MDRD (S/P/Bld) [Vol rate/Area] > 60 mL/Min [facility] Folate [Mass/volume] in Seru m or PlasmaOrdered By: Hussain Cat on 02-08-2022 Folate [Mass/Vol] ng/mL >5.9 [facility] Comment on above: Folate reference ran ge: >5.9 ng/ml The WHO technical consultation on folate and vitamin b12 deficiencies has determined that folate concentrations less than 4 ng/ml are considered deficient. Globulin Calc (S) [Mass/Vol] Ordered By: Hussain Cat on 02-08-2022 Globulin (S) [Mass/Vol] 2.7 g/dL [facility] Hematocrit Auto (Bld) [Volum e fraction]Ordered By: Hussain Cat on 02-08-2022 Hematocrit (Bld) [Volume fraction] 39.0 % 34.0-46.4 [facility] Laboratory - Chemistry and C hemistry - challengeOrdered By: Hussain Cat on 02-08-2022 Cobalamin (Vitamin B12) [Mass/Vol] 486 pg/mL 180-914 [facility] Magnesium [Mass/Vol] 1.4 mg/dL 1.6-2.6 [facility] Laboratory - CoagulationOrde red By: Hussain Cat on 02-08-2022 PT Coag (PPP) [Time] 16.0 s 9.0-12.9 [facility] Laboratory - Hematology and Cell countsOrdered By: Hussain Cat on 02-08-2022 Nucleated RBC/100 WBC (Bld) [Ratio] 0.0 % 0-0.5 [facility] Lymphocytes Auto (Bld) [#/Vo l]Ordered By: Hussain Cat on 02-08-2022 Lymphocytes (Bld) [#/Vol] 0.7 10*3/uL 1.00-4.8 [facility] Lymphocytes/100 WBC Auto (Bl d)Ordered By: Hussain Cat on 02-08-2022 Lymphocytes/100 WBC (Bld) 6.1 % [facility] MCH Auto (RBC) [Entitic mass ]Ordered By: Hussain Cat on 02-08-2022 MCH (RBC) [Entitic mass] 32.7 pg 24.7-34.3 [facility] MCHC Auto (RBC) [Mass/Vol]Or dered By: Hussain aCt on 02-08-2022 MCHC (RBC) [Mass/Vol] 34.0 g/dL 32.0-35.0 [facility] MCV Auto (RBC) [Entitic vol] Ordered By: Hussain Cat on 02-08-2022 MCV (RBC) [Entitic vol] 96.2 fL 80-100 [facility] MR head/brain wo conon 02-08 MR head/brain wo con [facility] [place] [address] [place] [address] MRI Report Signed Patient: Jesus Wolf MR#: [id number] : 1955 Acct:[id number] Age/Sex: 66 / F ADM Date: 02/07/22 Loc: 3T Room: [address] [place] [address] Type: ADM INOo Attending Dr: Hussain Cat MD Copies to: Hussain Cat MD Ordering Provider: Hussain Cat MD Date of Service: 02/08/22 MR/MR head/brain wo con: Rule out ischemic CVA MR head/brain wo con 02/07/2022 7:39 PM SIGN AND SYMPTOMS: Heaviness in legs, unable to walk, lethargy with headaches PROTOCOL: Multiplanar multisequence MR images of the brain were obtained without IV contrast. COMPARISON: CT and CT angiography from 02/07/2022 FINDINGS: Extra axial spaces: Age appropriate. Hemorrhage: None. Ventricular system: Within normal limits. Basal cisterns: Within normal limits and not effaced. Cerebral parenchyma: There is T2 and T2 FLAIR hyperintense signal in the periventricular and subcortical white matter suggesting mild chronic microvascular ischemic change. Midline shift: None.. Cerebellum: Within normal limits. Brainstem: Within normal limits. OTHER: Calvarium: Normal marrow signal. Vascular system: Satisfactory flow voids within the anterior and posterior circulation. Visualized Paranasal sinuses: Mucosal thickening is noted in the left sphenoid sinus. There is a mucous retention cyst suspected along the fossa of proximal ureter on the right. Visualized Orbits: Within normal limits. Visualized upper cervical spine: Within normal limits. Sella and skull base: Within normal limits. MR/MR head/brain wo con IMPRESSION: No acute intracranial pathology. There is T2 and T2 FLAIR hyperintense signal in the periventricular and subcortical white matter suggesting mild chronic microvascular ischemic change. Impression dictated by: Denis Hampton M.D.02/08/2022 1:56 PM Dictation Location: [place] [address] Transcribed By: [facility] 02/08/22 1356 Dictated By: Denis Hampton II, MD 02/08/22 1349 Signed By: 02/08/22 1356 Normal [facility] Magnesiumon 02-08-2022 Magnesium [Mass/Vol] 1.4 mg/dL Low 1.6-2.6 [facility] Comment on above: Performed By: #### C BC, PT, PTT, CMP, MG, [id number], TSH3 wRFLX, [id number] ####[facility] [id number] [place] [id number] [facility] Monocytes Auto (Bld) [#/Vol] Ordered By: Hussain Cat on 02-08-2022 Monocytes (Bld) [#/Vol] 0.3 10*3/uL 0.0-0.8 [facility] Monocytes/100 WBC Auto (Bld) Ordered By: Hussain Cat on 02-08-2022 Monocytes/100 WBC (Bld) 2.5 % [facility] Neutrophils Auto (Bld) [#/Vo l]Ordered By: Hussain Cat on 02-08-2022 Neutrophils (Bld) [#/Vol] 10.8 10*3/uL 1.8-7.7 [facility] Neutrophils/100 WBC Auto (Bl d)Ordered By: Hussain Cat on 02-08-2022 Neutrophils/100 WBC (Bld) 91.4 % [facility] No Panel InformationOrdered By: Hussain Cat on 02-08-2022 25-Hydroxy Vitamin D Total 66.1 ng/mL 30-100 [facility] Comment on above: VITAMIN D STATUS 25( [place])VITAMIN D RANGE (ng/mL) Deficient <20 Insufficient 20 to <30 Sufficient 30 to 100 Reference: Geraldine PETERSON,Nkechi NC, Raegan CLIFFORD, et al. Evaluation,treatment, and prevention of vitamin D deficiency; an Endocrine Society clinical practice guideline. JCEM. 2010; 96(7):1911-30. Estimated GFR () > 60 mL/Min [facility] Comment on above: GFR estimated refere nce range: According to KDOQI guidelines, <60 ml/min/1.73m2 is sufficient to diagnose a patient with chronic kidney disease. Pharmacy Creatinine Clearance (Chem 80.69 [facility] Partial Thromboplastin Timeo n 02-08-2022 aPTT Coag (Bld) [Time] 34.7 s Normal 25.1-36.5 [facility] Comment on above: Result Comment: PERF ORMED BY: [facility] [address] [facility] [place] [id number] PATHOLOGIST HOTEL CONTROLLER ERICK FORDE M.D. Performed By: #### C BC, PT, PTT, CMP, MG, [id number], TSH3 wRFLX, [id number] ####[facility] [place] [id number] [facility] Platelet mean volume Auto (B ld) [Entitic vol]Ordered By: Hussain Cat on 02-08-2022 Platelet mean volume (Bld) [Entitic vol] 8.6 fL 6.3-10.7 [facility] Platelet poor plasma interna tional normalized ratio (INR) by coagulation assay (relatOrdered By: Hussain Cat on 02-08-2022 INR Coag (PPP) [Relative time] 1.4 {INR} [facility] Comment on above: INR Therapeutic Rang e A) Pre- and Peroperative OAT started two weeks before surgery. NOT HIP SURGERY: 1.5 - 2.5 HIP SURGERY: 2 - 3 B) Primary and secondary prevention of venous THROMBOSIS: 2 - 3 C) Active venous thrombosis, pulmonary embolism and prevention of recurrent venous thrombosis: 2 - 3 D) Prevention of arterial thromboembolism including patients with mechanical heart valves: 3 - 4.5 Platelets Auto (Bld) [#/Vol] Ordered By: Hussain Cat on 02-08-2022 Platelets (Bld) [#/Vol] 276 10*3/uL 150-450 [facility] Protein [Mass/volume] in Ser um or PlasmaOrdered By: Hussain Cat on 02-08-2022 Protein [Mass/Vol] 6.2 g/dL 6.1-7.9 [facility] Prothrombin Time INRon 02-08 INR Coag (PPP) [Relative time] 1.4 {INR} Normal [facility] Comment on above: Result Comment: INR Therapeutic Range A) Pre- and Peroperative OAT started two weeks before surgery. NOT HIP SURGERY: 1.5 - 2.5 HIP SURGERY: 2 - 3 B) Primary and secondary prevention of venous THROMBOSIS: 2 - 3 C) Active venous thrombosis, pulmonary embolism and prevention of recurrent venous thrombosis: 2 - 3 D) Prevention of arterial thromboembolism including patients with mechanical heart valves: 3 - 4.5 Performed By: #### C BC, PT, PTT, CMP, MG, [id number], TSH3 wRFLX, [id number] ####[facility] PT Coag (PPP) [Time] 16.0 s High 9.0-12.9 [facility] Comment on above: Performed By: #### C BC, PT, PTT, CMP, MG, [id number], TSH3 wRFLX, [id number] ####[place] [id number] [address] RBC Auto (Bld) [#/Vol]Ordere d By: Hussain Cat on 02-08-2022 RBC (Bld) [#/Vol] 4.06 10*6/uL 3.60-5.00 [facility] Serum or plasma C reactive p rotein measurement (mass/volume)Ordered By: Rachelle Frazier on 02-08-2022 CRP [Mass/Vol] 3.9 mg/dL 0.0-1.0 [facility] Serum or plasma alanine chapman otransferase measurement without P-5'-P (enzymatic activiOrdered By: Hussain Cat on 02-08-2022 ALT No additional P-5'-P [Catalytic activity/Vol] 24 U/L 10-60 [facility] Serum or plasma albumin/glob ulin mass ratioOrdered By: Hussain Cat on 02-08-2022 Albumin/Globulin [Mass ratio] 1.3 {ratio} [facility] Serum or plasma alkaline van sphatase measurement (enzymatic activity/volume)Ordered By: Hussain Cat on 02-08-2022 ALP [Catalytic activity/Vol] 87 U/L 32-92 [facility] Serum or plasma aspartate am inotransferase measurement (enzymatic activity/volume)Ordered By: Hussain Cat on 02-08-2022 AST [Catalytic activity/Vol] 22 U/L 10-42 [facility] Serum or plasma calcium kelli urement (mass/volume)Ordered By: Hussain Cat on 02-08-2022 Calcium [Mass/Vol] 10.2 mg/dL 8.2-10.2 [facility] Serum or plasma chloride duy surement (moles/volume)Ordered By: Hussain Cat on 02-08-2022 Chloride [Moles/Vol] 103 mmol/L 95-114 [facility] Serum or plasma glucose kelli urement (mass/volume)Ordered By: Hussain Cat on 02-08-2022 Glucose [Mass/Vol] 119 mg/dL 70-100 [facility] Comment on above: ADA recommended refe rence range Random Glucose Reference Range is dependent on time and content of last meal. Glucose of more than 200 mg/dL in a nonstressed, ambulatory subject supports the diagnosis of Diabetes Mellitus. Serum or plasma potassium me asurement (moles/volume)Ordered By: Hussain Cat on 02-08-2022 Potassium [Moles/Vol] 4.6 mmol/L 3.5-5.1 [facility] Serum or plasma sodium measu rement (moles/volume)Ordered By: Hussain Cat on 02-08-2022 Sodium [Moles/Vol] 139 mmol/L 136-146 [facility] Serum or plasma total biliru bin measurement (mass/volume)Ordered By: Hussain Cat on 02-08-2022 Bilirubin [Mass/Vol] 0.8 mg/dL 0.3-1.2 [facility] Serum or plasma total carbon dioxide measurement (moles/volume)Ordered By: Hussain Cat on 02-08-2022 CO2 [Moles/Vol] 22.3 mmol/L 22.0-30.0 [facility] Serum or plasma urea nitroge n measurement (mass/volume)Ordered By: Hussain Cat on 02-08-2022 Urea nitrogen [Mass/Vol] 24 mg/dL 9- [facility] TSH DL <= 0.005 mIU/L QnOrde red By: Hussain Cat on 02-08-2022 TSH Qn 1.31 m[IU]/L 0.45-5.33 [facility] Thyroid Stim Hormone w/Rflxo n 02-08-2022 Thyroid Stim Hormone w/Rflx 1.31 u[iU]/mL Normal 0.45-5.33 [facility] Comment on above: Performed By: #### C BC, PT, PTT, CMP, MG, [id number], TSH3 wRFLX, [id number] ####[place] [id number] [address] Vit. B12/Folate Profileon Cobalamin (Vitamin B12) [Mass/Vol] 486 pg/mL Normal 180-914 [facility] Comment on above: Performed By: #### C BC, PT, PTT, CMP, MG, [id number], TSH3 wRFLX, [id number] ####[place] [id number] [facility] Folate > 22.3 Normal >5.9 [facility] Comment on above: Result Comment: Reina te reference range: >5.9 ng/ml The WHO technical consultation on folate and vitamin b12 deficiencies has determined that folate concentrations less than 4 ng/ml are considered deficient. Performed By: #### C BC, PT, PTT, CMP, MG, [id number], TSH3 wRFLX, [id number] ####[place] [id number] [facility] Vitamin D 25 Hydroxy Totalon 02-08-2022 Vitamin D 25 Hydroxy Total 66.1 ng/mL Normal 30-100 [facility] Comment on above: Result Comment: DORITA MIN D STATUS 25(OH)VITAMIN D RANGE (ng/mL) Deficient <20 Insufficient 20 to <30 Sufficient 30 to 100 Reference: Geraldine MF,Nkechi NC, Raegan CLIFFORD, et al. Evaluation,treatment, and prevention of vitamin D deficiency; an Endocrine Society clinical practice guideline. JCEM. 2010; 96(7):1911-30. PERFORMED BY: [facility] [address] [place] [address] PATHOLOGIST HOTEL CONTROLLER ERICK FORDE M.D. Performed By: #### C BC, PT, PTT, CMP, MG, [id number], TSH3 wRFLX, [id number] ####[facility] [address] [place] [address] [facility] Activated partial thrombopla stin time (aPTT) in platelet poor plasma by coagulation aOrdered By: Chapincito Barraza on 02-07-2022 aPTT Coag (PPP) [Time] 35.5 s 25.1-36.5 [facility] Automated erythrocytes count in urine sediment (number/area)Ordered By: Chapincito Barraza on 02-07-2022 RBC Auto (Urine sed) [#/Area] 0-1 [HPF] [facility] Automated leukocytes count i n urine sediment (number/area)Ordered By: Chapincito Barraza on 02-07-2022 WBC Auto (Urine sed) [#/Area] 3-4 [HPF] [facility] B-Type Natriuretic Peptideon 02-07-2022 Natriuretic peptide B (Bld) [Mass/Vol] 77.0 pg/mL Normal 5-100 [facility] Comment on above: Result Comment: PERF ORMED BY: [facility] [address] [place] [address] PATHOLOGIST HOTEL CONTROLLER ERICK FORDE M.D. Performed By: #### I SCRE #### [facility] [address] [place] [id number] [facility] Point of Care testing , Basic Metabolic Panelon 01-16 Calcium [Mass/Vol] 10.8 mg/dL High 8.2-10.2 [facility] Comment on above: Performed By: #### I SCRE #### [facility] C[facility] [address] [place] [address] Point of Care testing , Chloride [Moles/Vol] 105 mmol/L Normal 95-114 [facility] Comment on above: Performed By: #### I SCRE #### [address] Point of Care testing , CO2 [Moles/Vol] 22.4 mmol/L Normal 22.0-30.0 [facility] Comment on above: Performed By: #### I SCRE #### [address] Point of Care testing , Creatinine [Mass/Vol] 1.03 mg/dL Normal 0.44-1.03 [facility] Comment on above: Performed By: #### I SCRE #### [address] Point of Care testing , Creatinine Clr Calc Pharmacy 70.36 [facility] Comment on above: Result Comment: PERF ORMED BY: [place] [address] PATHOLOGIST HOTEL CONTROLLER ERICK FORDE M.D. Performed By: #### I SCRE #### [address] Point of Care testing , Estimated GFR ( Adolfo > 60 [facility] Comment on above: Result Comment: GFR estimated reference range: According to KDOQI guidelines, <60 ml/min/1.73m2 is sufficient to diagnose a patient with chronic kidney disease. Performed By: #### I SCRE #### [address] Point of Care testing , Estimated GFR (Non- Am 54 [facility] Comment on above: Performed By: #### I SCRE #### [address] Point of Care testing , Glucose [Mass/Vol] 83 mg/dL Normal 70-100 [facility] Comment on above: Result Comment: [place] Glucose Reference Range is dependent on time and content of last meal. Glucose of more than 200 mg/dL in a nonstressed, ambulatory subject supports the diagnosis of Diabetes Mellitus. ADA recommended reference range Performed By: #### I SCRE #### [facility] [address] Point of Care testing , Potassium [Moles/Vol] 5.1 mmol/L Normal 3.5-5.1 [facility] Comment on above: Performed By: #### I SCRE #### [facility] [address] Point of Care testing , Sodium [Moles/Vol] 139 mmol/L Normal 136-146 [facility] Comment on above: Performed By: #### I SCRE #### [facility] [address] Point of Care testing , Urea nitrogen [Mass/Vol] 22 mg/dL Normal 9-23 [facility] Comment on above: Performed By: #### I SCRE #### [facility] [address] Point of Care testing , Basophils Auto (Bld) [#/Vol] Ordered By: Chapincito Barraza on 02-07-2022 Basophils (Bld) [#/Vol] 0.1 10*3/uL 0.0-0.2 [facility] Basophils/100 WBC Auto (Bld) Ordered By: Chapincito Barraza on 02-07-2022 Basophils/100 WBC (Bld) 0.5 % [facility] Bilirubin Test strip Ql (U)O rdered By: Chapincito Barraza on 02-07-2022 Bilirubin Ql (U) Negative Negative [facility] Blood hemoglobin measurement (mass/volume)Ordered By: Chapincito Barraza on 02-07-2022 Hemoglobin (Bld) [Mass/Vol] 13.6 g/dL 11.8-15.4 [facility] Blood leukocytes automated c ount (number/volume)Ordered By: Chapincito Barraza on 02-07-2022 WBC (Bld) [#/Vol] 11.3 10*3/uL 4.5-11.0 [facility] COVID-19 Antigenon 2 COVID-19 Antigen Healthcare Worker?: N Reference Range: Negative Negative results, from patients with symptom onset beyond five days, should be treated as presumptive and confirmation with a molecular assay, if necessary, for patient management, may be performed. Negative results do not rule out COVID-19 and should not be used as the sole basis for treatment or patient management decisions, including infection control decisions. Negative results should be considered in the context of a patient's recent exposures, history and the presence of clinical signs and symptoms consistent with COVID-19. The Kade SARS Antigen JESUS does not differentiate between SARS-CoV and SARS-CoV-2. This test was developed and its performance characteristic determined by [employer] and validated at [facility]. This test has not been FDA cleared or approved. This test has been authorized by FDA under an Emergency Use Authorization (EUA). This test has been validated in accordance with the FDA's Guidance Document (Policy for Diagnostics Testing in Laboratories Certified to Perform High Complexity Testing under CLIA prior to Emergency Use Authorization for Coronavirus Disease-2019 during the Public Health Emergency) issued on November 17, 2019. This test is only authorized for the duration of time the declaration that circumstances exist justifying the authorization of the emergency use of in vitro diagnostic tests for detection of SARS-CoV-2 virus and/or diagnosis of COVID-19 infection under section 564(b)(1) of the Act, 21 U.S.C. 360bbb-3(b)(1), unless the authorization is terminated or revoked sooner. SARS-CoV+SARS-CoV-2 (COVID-19) Ag [Presence] in Respiratory specimen by Rapid immunoassay Negative for SARS Antigen by JESUS PERFORMED BY: [place] [address] PATHOLOGIST HOTEL CONTROLLER ERICK FORDE M.D. Normal [facility] Comment on above: Performed By: #### C OVID-19 KADE, SOFIANEG, COVID 19 [facility] #### [address] [facility] [place] SARS-CoV-2 (COVID-19) RNA RAVIN+probe Ql (Unsp spec) Negative Normal Negative [facility] Comment on above: Order Comment: Healt hcare Worker?: N Result Comment: Testing for SARS-CoV-2 by RT-PCR This test was developed and its performance characteristics determined by [employer] (BD) and validated at the [facility]. This test has not been FDA cleared or approved. This test has been authorized by FDA under an Emergency Use Authorization (EUA). This test has been validated in accordance with the FDA's Guidance Document (Policy for Diagnostics Testing in Laboratories Certified to Perform High Complexity Testing under CLIA prior to Emergency Use Authorization for Coronavirus Disease-2019 during the Public Health Emergency) issued on November 17, 2019. This test is only authorized for the duration of time the declaration that circumstances exist justifying the authorization of the emergency use of in vitro diagnostic tests for detection of SARS-CoV-2 virus and/or diagnosis of COVID-19 infection under section 564(b)(1) of the Act, 21 U.S.C. 360bbb-3(b)(1), unless the authorization is terminated or revoked sooner. PERFORMED BY: [place] [address] PATHOLOGIST HOTEL CONTROLLER ERICK FORDE M.D. Performed By: #### C OVID-19 KADE, SOFIANEG, COVID 19 [facility] #### [address] COVID-19 Positive/NegativeOr dered By: Chapincito Barraza on 02-07-2022 SARS-CoV-2 (COVID-19) N gene RAVIN+probe Ql (Resp) Negative Negative [facility] Comment on above: Testing for SARS-CoV -2 by RT-PCR This test was developed and its performance characteristics determined by [employer] (BD) and validated at the [facility]. This test has not been FDA cleared or approved. This test has been authorized by FDA under an Emergency Use Authorization (EUA). This test has been validated in accordance with the FDA's Guidance Document (Policy for Diagnostics Testing in Laboratories Certified to Perform High Complexity Testing under CLIA prior to Emergency Use Authorization for Coronavirus Disease-2019 during the Public Health Emergency) issued on November 17, 2019. This test is only authorized for the duration of time the declaration that circumstances exist justifying the authorization of the emergency use of in vitro diagnostic tests for detection of SARS-CoV-2 virus and/or diagnosis of COVID-19 infection under section 564(b)(1) of the Act, 21 U.S.C. 360bbb-3(b)(1), unless the authorization is terminated or revoked sooner. COVID-19 SOFIAOrdered By: Nalini Barraza on 02-07-2022 SARS-CoV+SARS-CoV-2 (COVID-19) Ag IA.rapid Ql (Resp) Negative Negative [facility] Comment on above: This is a duplicate Kade SARS Antigen (JESUS) result to be used for statistical tracking purpose only. CT angio abdomen pelvison CT angio abdomen pelvis [facility] Main [place] [address] [place] [address] CT Scan Report Signed Patient: Jesus Wolf MR#: [id number] : 1955 Acct:[id number] Age/Sex: 66 / F ADM Date: 02/07/22 Loc: ER Room: Type: [facility] ER Attending Dr: Copies to: Chapincito Barraza MD Ordering Provider: Chapincito Barraza MD Date of Service: 02/07/22 CT/CT angio chest PE protocol: nbvjm ([id number]) CT/CT angio abdomen pelvis: uyt CTA chest and CTA abdomen and pelvis 02/07/2022. CLINICAL DATA: Headache. Confusion. Difficulty walking. TECHNIQUE: Intravenous contrast-enhanced CT angiography of the chest and CT angiography of the abdomen and pelvis were performed. Axial, sagittal, coronal, and 3-dimensional reconstructions were created and reviewed. These CT exams were performed using one or more of the following dose reduction techniques: Automated exposure control, adjustment of the mA and/or kV according to patient size, or use of iterative reconstruction technique. COMPARISON: CTA chest 09/18/2019. CT abdomen and pelvis without contrast 09/24/2019. CHEST FINDINGS: The heart is normal in size. Atherosclerotic changes are noted. There is aneurysmal dilatation of the ascending aorta which measures up to 4.8 cm in diameter. This finding is unchanged. No thoracic aortic stenosis or dissection is identified. No pulmonary embolus is seen on the right or left. There is no mediastinal or hilar lymphadenopathy. There is no hiatal hernia. The central airways appear unremarkable. There is scarring along the minor fissure in the right lung. There is also mild scarring in the paraspinal region of the right lower lobe and in the lingula of the left upper lobe. No segmental or lobar pulmonary consolidation or collapse is identified. No pleural effusion is seen. The thoracic spine demonstrates degenerative changes. ABDOMEN AND PELVIS FINDINGS: Atherosclerotic changes are noted. No abdominal aortic aneurysm, stenosis, or dissection is identified. The liver, spleen, pancreas, right and left kidneys, and both adrenal glands appear unremarkable. The gallbladder is distended. Evaluation of the lower pelvis is limited by the presence of beam hardening artifact related to right hip replacement. The urinary bladder appears unremarkable as visualized. There is colonic diverticulosis without evidence of acute diverticulitis. No free intra-abdominal air or ascites is identified. The lumbar spine demonstrates degenerative changes and curvature. No abdominal wall abnormality is noted. CT/CT angio chest PE protocol IMPRESSION: 1. Atherosclerotic changes. 2. Stable ascending aortic aneurysm. 3. No abdominal aortic aneurysm. 4. No visible pulmonary embolism. 5. Scarring in both lungs. 6. Distended gallbladder. 7. Diverticulosis. Impression dictated by: Brendan Sanches Jr., M.D.02/07/2022 3:42 PM Dictation Location: [place] [address] Transcribed By: [facility] 02/07/22 1542 Dictated By: Brendan Sanches Jr, MD 02/07/22 1528 Signed By: 02/07/22 1542 [facility] [address] angio neckon 02-07-2022 CT angio neck [facility] [place] [address] CT Scan Report Signed Patient: Jesus Wolf MR#: [id number] : 1955 Acct:[id number] Age/Sex: 66 / F ADM Date: 02/07/22 Loc: ER Room: Type: [facility] ER Attending Dr: Copies to: Chapincito Barraza MD Ordering Provider: Chapincito Barraza MD Date of Service: 02/07/22 CT/CT angio head: nbvjm ([id number]) CT/CT angio neck: nbvjm CTA neck and CTA head 02/07/2022. CLINICAL DATA: Headache. Confusion. TECHNIQUE: Intravenous contrast-enhanced CT angiography of the neck and CT angiography of the head were performed. Axial, sagittal, coronal, and 3-dimensional reconstructions were created and reviewed. The NASCET method was used to calculate internal carotid artery stenosis. These CT exams were performed using one or more of the following dose reduction techniques: Automated exposure control, adjustment of the mA and/or kV according to patient size, or use of iterative reconstruction technique. COMPARISON: None. CTA NECK FINDINGS: The visualized aortic arch, the brachiocephalic artery, and both subclavian arteries appear unremarkable. The right and left vertebral arteries are widely patent. Both common carotid arteries appear unremarkable. There are mild atherosclerotic changes at both carotid bifurcations. No cervical internal carotid artery stenosis is identified on the right or left. No arterial dissection is seen. CTA HEAD FINDINGS: The intracranial segments of the right and left internal carotid arteries demonstrate atherosclerotic changes and are mildly narrowed. The basilar artery is widely patent. The main anterior, middle, and posterior cerebral arteries appear unremarkable bilaterally. No major cerebral artery occlusion or significant stenosis is identified. No intracranial aneurysm or other vascular malformation is seen. CT/CT angio head IMPRESSION: 1. No cervical internal carotid artery stenosis. 2. Mildly narrowed intracranial internal carotid arteries. 3. Unremarkable vertebrobasilar system. Impression dictated by: Brendan Sanches Jr., M.D.02/07/2022 3:42 PM Dictation Location: [place] [address] Transcribed By: [facility] 02/07/22 1542 Dictated By: Brendan Sanches Jr, MD 02/07/22 1520 Signed By: 02/07/22 15[address] [facility] [address] head/brain wo reece 02-07 CT head/brain wo [facility] [place] [address] CT Scan Report Signed Patient: Jesus Wlof MR#: [id number] : 1955 Acct:[id number] Age/Sex: 66 / F ADM Date: 02/07/22 Loc: ER Room: Type: [facility] ER Attending Dr: Copies to: Chapincito Barraza MD Ordering Provider: Chapincito Barraza MD Date of Service: 02/07/22 CT/CT head/brain wo con: nbvjm CT head 02/07/2022. CLINICAL DATA: Headache. Confusion. TECHNIQUE: CT of the head was performed without contrast. This CT exam was performed using one or more of the following dose reduction techniques: Automated exposure control, adjustment of the mA and/or kV according to patient size, or use of iterative reconstruction technique. COMPARISON: 05/08/2019. FINDINGS: The ventricles, sulci, and cisterns are normal in size and configuration. No altered parenchymal attenuation is noted. There are no findings to suggest an acute large vessel infarct. There is no acute intracranial hemorrhage. No intracranial mass or mass effect is identified. No abnormal extra-axial fluid collection is seen. There is mucoperiosteal thickening in the sphenoid sinus. The mastoids appear unremarkable. CT/CT head/brain wo con IMPRESSION: No acute intracranial abnormality. Impression dictated by: Brendan Sanches Jr., M.D.02/07/2022 3:42 PM Dictation Location: [place] [address] Transcribed By: [facility] 02/07/22 1542 Dictated By: Brendan Sanches Jr, MD 02/07/22 1517 Signed By: 02/07/22 1542 Normal [facility] Color Auto (U)Ordered By: Nalini Barraza on 02-07-2022 Color (U) Dark yellow Yellow [facility] Complete Blood Count Auto Di ffon 02-07-2022 Basophils (Bld) [#/Vol] 0.1 10*3/uL Normal 0.0-0.2 [facility] Comment on above: Result Comment: PERF ORMED BY: [place] [address] PATHOLOGIST HOTEL CONTROLLER ERICK FORDE M.D. Performed By: #### I SCRE #### [address] Point of Care testing , Basophils/100 WBC (Bld) 0.5 % Normal . [facility] Comment on above: Performed By: #### I SCRE #### [address] Point of Care testing , Eosinophils (Bld) [#/Vol] 0.2 10*3/uL Normal 0.0-0.45 [facility] Comment on above: Performed By: #### I SCRE #### [address] Point of Care testing , Eosinophils/100 WBC (Bld) 1.8 % Normal . [facility] Comment on above: Performed By: #### I SCRE #### [address] Point of Care testing , Erythrocyte distribution width (RBC) [Ratio] 13.0 % Normal 11.9-15.3 [facility] Comment on above: Performed By: #### I SCRE #### [address] Point of Care testing , Hematocrit (Bld) [Volume fraction] 40.9 % Normal 34.0-46.4 [facility] Comment on above: Performed By: #### I SCRE #### [address] Point of Care testing , Hemoglobin (Bld) [Mass/Vol] 13.6 g/dL Normal 11.8-15.4 [facility] Comment on above: Performed By: #### I SCRE #### [address] Point of Care testing , Lymphocytes (Bld) [#/Vol] 2.1 10*3/uL Normal 1.00-4.8 [facility] Comment on above: Performed By: #### I SCRE #### [address] Point of Care testing , Lymphocytes/100 WBC (Bld) 18.9 % Normal . [facility] Comment on above: Performed By: #### I SCRE #### [address] Point of Care testing , MCH (RBC) [Entitic mass] 32.4 pg Normal 24.7-34.3 [facility] Comment on above: Performed By: #### I SCRE #### [address] Point of Care testing , MCV (RBC) [Entitic vol] 97.0 fL Normal 80-100 [facility] Comment on above: Performed By: #### I SCRE #### [address] Point of Care testing , Mean Corpuscular HGB Conc 33.4 g/dL Normal 32.0-35.0 [facility] Comment on above: Performed By: #### I SCRE #### [address] Point of Care testing , Monocytes (Bld) [#/Vol] 1.4 10*3/uL High 0.0-0.8 [facility] Comment on above: Performed By: #### I SCRE #### [address] Point of Care testing , Monocytes/100 WBC (Bld) 12.2 % Normal . [facility] Comment on above: Performed By: #### I SCRE #### [address] Point of Care testing , Neutrophils (Bld) [#/Vol] 7.5 10*3/uL Normal 1.8-7.7 [facility] Comment on above: Performed By: #### I SCRE #### [address] Point of Care testing , Neutrophils/100 WBC (Bld) 66.6 % Normal . [facility] Comment on above: Performed By: #### I SCRE #### [address] Point of Care testing , Nucleated RBC/100 WBC (Bld) [Ratio] 0.0 % Normal 0-0.5 [facility] Comment on above: Performed By: #### I SCRE #### [address] Point of Care testing , Platelet mean volume (Bld) [Entitic vol] 8.5 fL Normal 6.3-10.7 [facility] Comment on above: Performed By: #### I SCRE #### [facility] [address] [place] [address] Point of Care testing , Platelets (Bld) [#/Vol] 273 10*3/uL Normal 150-450 [facility] Comment on above: Performed By: #### I SCRE #### [address] Point of Care testing , RBC (Bld) [#/Vol] 4.21 10*6/uL Normal 3.60-5.00 [facility] Comment on above: Performed By: #### I SCRE #### [address] Point of Care testing , WBC (Bld) [#/Vol] 11.3 10*3/uL High 4.5-11.0 [facility] Comment on above: Performed By: #### I SCRE #### [address] Point of Care testing , Creatine Kinaseon 02-07-2022 CK [Catalytic activity/Vol] 154 U/L Normal 22-269 [facility] Comment on above: Performed By: #### I SCRE #### [address] Point of Care testing , Creatine kinase [Enzymatic a ctivity/volume] in Serum or PlasmaOrdered By: Chapincito Barraza on 02-07-2022 CK [Catalytic activity/Vol] 154 U/L 22-269 [facility] Creatinine (Bld) [Mass/Vol]O rdered By: Hussain Cat on 02-07-2022 Creatinine [Mass/Vol] 1.0 mg/dL 0.6-1.3 [facility] Comment on above: ER/ESD physician is notified/shown all ISTAT results. Critical values may be confirmed by laboratory testing if deemed necessary by ER attending doctor. Creatinine Kinase MBon 02-07 CK.MB [Mass/Vol] 2.2 ng/mL Normal 0.6-6.3 [facility] Comment on above: Performed By: #### I SCRE #### [facility] [address] Point of Care testing , CKMB Relative Index 1.4 % Normal 0.00-2.50 [facility] Comment on above: Performed By: #### I SCRE #### [address] Point of Care testing , Creatinine and Glomerular fi ltration rate.predicted panel (S/P/Bld)Ordered By: Chapincito Barraza on 02-07-2022 Creatinine [Mass/Vol] 1.03 mg/dL 0.44-1.03 [facility] Dipstick and Microscopicon 0 02-07-2022 Appearance (U) Clear Normal Clear [facility] Comment on above: Order Comment: Name Collection Type:: Straight Catheter Performed By: #### I SCRE #### [address] Point of Care testing , Bacteria,Urine 2+ High None Seen [facility] Comment on above: Order Comment: Name Collection Type:: Straight Catheter Performed By: #### I SCRE #### [address] Point of Care testing , Bilirubin,Urine Negative Normal Negative [facility] Comment on above: Order Comment: Name Collection Type:: Straight Catheter Performed By: #### I SCRE #### [address] Point of Care testing , Color (U) Dark Yellow Critically abnormal Yellow [facility] Comment on above: Order Comment: Name Collection Type:: Straight Catheter Performed By: #### I SCRE #### [address] Point of Care testing , Glucose Ql (U) Normal Normal Normal [facility] Comment on above: Order Comment: Name Collection Type:: Straight Catheter Performed By: #### I SCRE #### [address] Point of Care testing , Hyaline Casts,Urine 0-8 Normal 0-8 [facility] Comment on above: Order Comment: Name Collection Type:: Straight Catheter Result Comment: PERF ORMED BY: [place] [address] PATHOLOGIST HOTEL CONTROLLER ERICK FORDE M.D. Performed By: #### I SCRE #### [address] Point of Care testing , Ketones Ql (U) Negative Normal Negative [facility] Comment on above: Order Comment: Name Collection Type:: Straight Catheter Performed By: #### I SCRE #### [address] Point of Care testing , Leukocyte esterase Test strip Ql (U) 2+ High Negative [facility] Comment on above: Order Comment: Name Collection Type:: Straight Catheter Performed By: #### I SCRE #### [address] Point of Care testing , Nitrite,Urine Positive High Negative [facility] Comment on above: Order Comment: Name Collection Type:: Straight Catheter Performed By: #### I SCRE #### [address] Point of Care testing , Occult Blood,Urine Negative Normal Negative [facility] Comment on above: Order Comment: Name Collection Type:: Straight Catheter Result Comment: PERF ORMED BY: [place] [address] PATHOLOGIST HOTEL CONTROLLER ERICK FORDE M.D. Performed By: #### I SCRE #### [address] Point of Care testing , pH (U) 5.0 [pH] Normal 5.0-9.0 [facility] Comment on above: Order Comment: Name Collection Type:: Straight Catheter Performed By: #### I SCRE #### [address] Point of Care testing , Protein,Urine Negative Normal Negative [facility] Comment on above: Order Comment: Name Collection Type:: Straight Catheter Performed By: #### I SCRE #### [address] Point of Care testing , RBC LM.HPF (Urine sed) [#/Area] 0 /[HPF] Normal 0-4 [facility] Comment on above: Order Comment: Name Collection Type:: Straight Catheter Performed By: #### I SCRE #### [address] Point of Care testing , Renal Epithelial Cells,Urine 1-2 High 0-1 [facility] Comment on above: Order Comment: Name Collection Type:: Straight Catheter Performed By: #### I SCRE #### [address] Point of Care testing , Specificy [place],Urine 1.049 High 1.001-1.030 [facility] Comment on above: Order Comment: Name Collection Type:: Straight Catheter Performed By: #### I SCRE #### [address] Point of Care testing , Squamous Epithelial Cell,Urine 5-9 High 0-2 [facility] Comment on above: Order Comment: Name Collection Type:: Straight Catheter Performed By: #### I SCRE #### [address] Point of Care testing , Urobilinogen,Urine Normal Normal Normal [facility] Comment on above: Order Comment: Name Collection Type:: Straight Catheter Performed By: #### I SCRE #### [address] Point of Care testing , WBC,Urine 3-4 Normal 0-4 [facility] Comment on above: Order Comment: Name Collection Type:: Straight Catheter Performed By: #### I SCRE #### [address] Point of Care testing , ECG 12 lead ECGon 02-07-2022 ECG 12 lead ECG [facility] [place] [address] [place] [address] Electrocardiograph Report Signed Patient: Jesus Wolf MR#: [id number] : 1955 Acct:[id number] Age/Sex: 66 / F ADM Date: 02/07/22 Loc: Room: [address] [place] [address] Type: DIS INOo Attending Dr: Hussain Cat MD Ordering Provider: JESSIKA PAULINO Date of Service: 02/07/22 ECG/ECG 12 lead ECG: Chest Pain Copies to: Test Reason : Blood Pressure : / mmHG Vent. Rate : 078 BPM Atrial Rate : 078 BPM P-R Int : 168 ms QRS Dur : 088 ms QT Int : 376 ms P-R-T Axes : 090 051 084 degrees QTc Int : 428 ms Normal sinus rhythm Normal ECG When compared with ECG of 24-SEP-2019 14:35, QRS duration has decreased Nonspecific T wave abnormality no longer evident in Lateral leads Confirmed by CHAPINCITO BARRAZA MD ([id number]) on 02/07/2022 7:29:29 PM Referred By: Electronically Signed By:CHAPINCITO BARRAZA MD Transcribed By: MUS Signed By Chapincito Barraza MD 02/07/221928 Normal [facility] Eosinophils Auto (Bld) [#/Vo l]Ordered By: Chapincito Barraza on 02-07-2022 Eosinophils (Bld) [#/Vol] 0.2 10*3/uL 0.0-0.45 [facility] Eosinophils/100 WBC Auto (Bl d)Ordered By: Chapincito Barraza on 02-07-2022 Eosinophils/100 WBC (Bld) 1.8 % [facility] Erythrocyte distribution wid th Auto (RBC) [Ratio]Ordered By: Chapincito Barraza on 02-07-2022 Erythrocyte distribution width (RBC) [Ratio] 13.0 % 11.9-15.3 [facility] Estimated glomerular filtrat ion rate (GFR) non- AmericanOrdered By: Chapincito Barraza on 02-07-2022 GFR/1.73 sq M.predicted among non-blacks MDRD (S/P/Bld) [Vol rate/Area] 54 mL/Min [facility] Hematocrit Auto (Bld) [Volum e fraction]Ordered By: Chapincito Barraza on 02-07-2022 Hematocrit (Bld) [Volume fraction] 40.9 % 34.0-46.4 [facility] ISTAT XRay CREon 02-07-2022 Creatinine [Mass/Vol] 1.0 mg/dL Normal 0.6-1.3 [facility] Comment on above: Result Comment: ER/E SD physician is notified/shown all ISTAT results. Critical values may be confirmed by laboratory testing if deemed necessary by ER attending doctor. Performed By: #### I SCRE #### [facility] [address] [place] [address] Point of Care testing , ISTAT GFR ( > 60 Normal [facility] Comment on above: Result Comment: GFR estimated reference range: According to KDOQI guidelines, <60 ml/min/1.73m2 is sufficient to diagnose a patient with chronic kidney disease. PERFORMED BY: [place] [address] PATHOLOGIST HOTEL CONTROLLER ERICK FORDE M.D. Performed By: #### I SCRE #### [facility] [address] [place] [address] Point of Care testing , ISTAT GFR (Non- Am 56 Normal [facility] Comment on above: Performed By: #### I SCRE #### [facility] [address] [place] [address] Point of Care testing , Ketones Auto test strip (U) [Mass/Vol]Ordered By: Chapincito Barraza on 02-07-2022 Ketones (U) [Mass/Vol] Negative Negative [facility] - Chemistry and C hemistry - challengeOrdered By: Chapincito Barraza on 02-07-2022 Natriuretic peptide B (Bld) [Mass/Vol] 77.0 pg/mL 5-100 [facility] - CoagulationOrde red By: Chapincito Barraza on 02-07-2022 PT Coag (PPP) [Time] 16.3 s 9.0-12.9 [facility] - Hematology and Cell countsOrdered By: Chapincito Barraza on 02-07-2022 Nucleated RBC/100 WBC (Bld) [Ratio] 0.0 % 0-0.5 [facility] - Microbiology an d Antimicrobial susceptibilityOrdered By: Chapincito Barraza on 02-07-2022 SARS-CoV-2 (COVID-19) RNA RAVIN+probe Ql (Unsp spec) N/A [facility] - UrinalysisOrder ed By: Chapincito Barraza on 02-07-2022 Hyaline casts LM Ql (Urine sed) 0-8 [LPF] [facility] Lymphocytes Auto (Bld) [#/Vo l]Ordered By: Chapincito Barraza on 02-07-2022 Lymphocytes (Bld) [#/Vol] 2.1 10*3/uL 1.00-4.8 [facility] Lymphocytes/100 WBC Auto (Bl d)Ordered By: Chapincito Barraza on 02-07-2022 Lymphocytes/100 WBC (Bld) 18.9 % [facility] MCH Auto (RBC) [Entitic mass ]Ordered By: Chapincito Barraza on 02-07-2022 MCH (RBC) [Entitic mass] 32.4 pg 24.7-34.3 [facility] MCHC Auto (RBC) [Mass/Vol]Or dered By: Chapincito Barraza on 02-07-2022 MCHC (RBC) [Mass/Vol] 33.4 g/dL 32.0-35.0 [facility] MCV Auto (RBC) [Entitic vol] Ordered By: Chapincito Barraza on 02-07-2022 MCV (RBC) [Entitic vol] 97.0 fL 80-100 [facility] Monocytes Auto (Bld) [#/Vol] Ordered By: Chapincito Barraza on 02-07-2022 Monocytes (Bld) [#/Vol] 1.4 10*3/uL 0.0-0.8 [facility] Monocytes/100 WBC Auto (Bld) Ordered By: Chapincito Barraza on 02-07-2022 Monocytes/100 WBC (Bld) 12.2 % [facility] Neutrophils Auto (Bld) [#/Vo l]Ordered By: Chapincito Barraza on 02-07-2022 Neutrophils (Bld) [#/Vol] 7.5 10*3/uL 1.8-7.7 [facility] Neutrophils/100 WBC Auto (Bl d)Ordered By: Chapincito Barraza on 02-07-2022 Neutrophils/100 WBC (Bld) 66.6 % [facility] Nitrite Test strip Ql (U)Ord ered By: Chapincito Barraza on 02-07-2022 Nitrite Ql (U) Positive Negative [facility] No Panel InformationOrdered By: Chapincito Barraza on 02-07-2022 SARS Antigen (LFIA) [facility] Estimated GFR () > 60 mL/Min [facility] Comment on above: GFR estimated refere nce range: According to KDOQI guidelines, <60 ml/min/1.73m2 is sufficient to diagnose a patient with chronic kidney disease. Pharmacy Creatinine Clearance (Chem 70.36 [facility] No Panel InformationOrdered By: Hussain Cat on 02-07-2022 POC Estimated GFR > 60 [facility] Comment on above: GFR estimated refere nce range: According to KDOQI guidelines, <60 ml/min/1.73m2 is sufficient to diagnose a patient with chronic kidney disease. POC Estimated GFR Non- Amer 56 [facility] Partial Thromboplastin Timeo n 02-07-2022 aPTT Coag (Bld) [Time] 35.5 s Normal 25.1-36.5 Fi [facility] Comment on above: Result Comment: PERF ORMED BY: [place] [address] PATHOLOGIST HOTEL CONTROLLER ERICK FORDE M.D. Performed By: #### I SCRE #### [address] Point of Care testing , Platelet mean volume Auto (B ld) [Entitic vol]Ordered By: Chapincito Barraza on 02-07-2022 Platelet mean volume (Bld) [Entitic vol] 8.5 fL 6.3-10.7 [facility] Platelet poor plasma interna tional normalized ratio (INR) by coagulation assay (relatOrdered By: Chapincito Barraza on 02-07-2022 INR Coag (PPP) [Relative time] 1.4 {INR} [facility] Comment on above: INR Therapeutic Rang e A) Pre- and Peroperative OAT started two weeks before surgery. NOT HIP SURGERY: 1.5 - 2.5 HIP SURGERY: 2 - 3 B) Primary and secondary prevention of venous THROMBOSIS: 2 - 3 C) Active venous thrombosis, pulmonary embolism and prevention of recurrent venous thrombosis: 2 - 3 D) Prevention of arterial thromboembolism including patients with mechanical heart valves: 3 - 4.5 Platelets Auto (Bld) [#/Vol] Ordered By: Chapincito Barraza on 02-07-2022 Platelets (Bld) [#/Vol] 273 10*3/uL 150-450 [facility] Protein Auto test strip (U) [Mass/Vol]Ordered By: Chapincito Barraza on 02-07-2022 Protein (U) [Mass/Vol] Negative Negative Fi [facility] Prothrombin Time INRon 02-07 INR Coag (PPP) [Relative time] 1.4 {INR} Normal [facility] Comment on above: Result Comment: INR Therapeutic Range A) Pre- and Peroperative OAT started two weeks before surgery. NOT HIP SURGERY: 1.5 - 2.5 HIP SURGERY: 2 - 3 B) Primary and secondary prevention of venous THROMBOSIS: 2 - 3 C) Active venous thrombosis, pulmonary embolism and prevention of recurrent venous thrombosis: 2 - 3 D) Prevention of arterial thromboembolism including patients with mechanical heart valves: 3 - 4.5 Performed By: #### I SCRE #### [facility] [address] Point of Care testing , PT Coag (PPP) [Time] 16.3 s High 9.0-12.9 [facility] Comment on above: Performed By: #### I SCRE #### [facility] [address] [place] [address] Point of Care testing , RBC Auto (Bld) [#/Vol]Ordere d By: Chapincito Barraza on 02-07-2022 RBC (Bld) [#/Vol] 4.21 10*6/uL 3.60-5.00 [facility] Serum or plasma calcium kelli urement (mass/volume)Ordered By: Chapincito Barraza on 02-07-2022 Calcium [Mass/Vol] 10.8 mg/dL 8.2-10.2 [facility] Serum or plasma chloride duy surement (moles/volume)Ordered By: Chapincito Barraza on 02-07-2022 Chloride [Moles/Vol] 105 mmol/L 95-114 [facility] Serum or plasma creatine kin ase MB (CKMB)/total creatine kinase (CK) ratio by calculaOrdered By: Chapincito Barraza on 06-24-2022 CK.MB Calc [Catalytic fraction] 1.4 % 0.00-2.50 [facility] Serum or plasma creatine kin ase MB measurement (mass/volume)Ordered By: Chapincito Barraza on 02-07-2022 CK.MB [Mass/Vol] 2.2 ng/mL 0.6-6.3 [facility] Serum or plasma glucose kelli urement (mass/volume)Ordered By: Chapincito Barraza on 02-07-2022 Glucose [Mass/Vol] 83 mg/dL 70-100 [facility] Comment on above: ADA recommended refe rence range Random Glucose Reference Range is dependent on time and content of last meal. Glucose of more than 200 mg/dL in a nonstressed, ambulatory subject supports the diagnosis of Diabetes Mellitus. Serum or plasma potassium me asurement (moles/volume)Ordered By: Chapincito Barraza on 02-07-2022 Potassium [Moles/Vol] 5.1 mmol/L 3.5-5.1 [facility] Serum or plasma sodium measu rement (moles/volume)Ordered By: Chapincito Barraza on 02-07-2022 Sodium [Moles/Vol] 139 mmol/L 136-146 [facility] Serum or plasma total carbon dioxide measurement (moles/volume)Ordered By: Chapincito Barraza on 02-07-2022 CO2 [Moles/Vol] 22.4 mmol/L 22.0-30.0 [facility] Serum or plasma urea nitroge n measurement (mass/volume)Ordered By: Chapincito Barraza on 02-07-2022 Urea nitrogen [Mass/Vol] 22 mg/dL 9-23 [facility] Kade Ag Negativeon 02-08-20 22 Kade Ag Negative Negative Normal Negative [facility] Comment on above: Result Comment: This is a duplicate Kade SARS Antigen (JESUS) result to be used for statistical tracking purpose only. PERFORMED BY: [place] [address] PATHOLOGIST HOTEL CONTROLLER ERICK FORDE M.D. Performed By: #### C OVID-19 KADE, SOFIANEG, COVID 19 [facility] #### [address] Specific gravity Auto test s trip (U) [Rel density]Ordered By: Chapincito Barraza on 02-07-2022 Specific gravity (U) [Rel density] 1.049 1.001-1.030 [facility] [facility] Squamous epithelial cells de tection in urine sediment by light microscopyOrdered By: Chapincito Barraza on 02-07-2022 Epithelial cells.squamous LM Ql (Urine sed) 5-9 [HPF] [facility] Troponin I High Sensitivityo n 02-07-2022 Troponin I High Sensitivity 16 pg/mL High 0-15 [facility] Comment on above: Result Comment: PERF ORMED BY: [place] [address] PATHOLOGIST HOTEL CONTROLLER ERICK FORDE M.D. Performed By: #### I SCRE #### [address] Point of Care testing , Troponin I.cardiac [Mass/vol ume] in Serum or Plasma by High sensitivity methodOrdered By: Chapincito Barraza on 02-07-2022 Troponin I.cardiac High sensitivity method [Mass/Vol] 16 pg/mL 0-15 [facility] Urine Cultureon 02-07-2022 Bacteria identified Cx Nom (U) ORGANISM: Escherichia coli (O:ESCCOL) [employer] Count >100,000 Aerobic NEIL Charge (NUC86) SUSCEPTIBILITY ORGANISM: O:ESCCOL ANTIBIOTIC INTERPRETATION NEIL Amikacin S <16 Ampicillin S <8 Ampicillin/Sulbactam S <8/4 Aztreonam S <4 Cefazolin S <2 Cefepime S <2 Ceftazidime S <1 Ceftazidime/Avibactam S <8 Ceftriaxone S <1 Ciprofloxacin S <1 Ertapenem S <0.5 Gentamicin S <4 Levofloxacin S <2 Meropenem S <1 Nitrofurantoin S <32 Piperacillin/Tazobactam S <16 Tetracycline S <4 Tigecycline S <2 Tobramycin S <4 Trimethoprim/Sulfamethoxa zole S <2/38 S = SUSCEPTIBLE I = INTERMEDIATE R = RESISTANT BLANK = DATA NOT AVAILABLE, OR DRUG NOT ADVISABLE OR TESTED R* = RESISTANCE DUE TO EXTENDED SPECTRUM BETA-LACTAMASES ESBL = EXTENDED SPECTRUM BETA-LACTAMASE TFG = THYMIDINE-DEPENDENT STRAIN NILO = BETA-LACTAMASE POSITIVE IB = INDUCIBLE BETA-LACTAMASE. APPEARS IN PLACE OF 'S' WITH SPECIES KNOWN TO POSSESS INDUCIBLE BETA-LACTAMASES. POTENTIALLY THEY MAY BECOME RESISTANT TO ALL B-LACTAM DRUGS. PERFORMED BY: [facility] [address] [place] [address] PATHOLOGIST HOTEL CONTROLLER ERICK FORDE M.D. [facility] Comment on above: Performed By: #### I SCRE #### [address] Point of Care testing , Urine bacteria detection by automated methodOrdered By: Chapincito Barraza on 02-07-2022 Bacteria Auto Ql (U) 2+ None Seen [facility] Urine clarity by refractomet ry automatedOrdered By: Chapincito Barraza on 02-07-2022 Clarity Refractometry automated (U) Clear Clear [facility] Urine culture routineOrdered By: Chapincito Barraza on 02-07-2022 Bacteria identified Cx Nom (U) Escherichia coli [facility] Urine glucose measurement by automated test strip (mass/volume)Ordered By: Chapincito Barraza on 02-07-2022 Glucose Auto test strip (U) [Mass/Vol] Normal mg/dL Normal [facility] Urine hemoglobin detection b y automated test stripOrdered By: Chapincito Barraza on 02-07-2022 Hemoglobin Auto test strip Ql (U) Negative Negative [facility] Urine leukocyte esterase det ection by automated test stripOrdered By: Chapincito Barraza on 02-07-2022 Leukocyte esterase Auto test strip Ql (U) 2+ Negative [facility] Urine sediment renal epithel ial cell count by microscopy (number/high power field)Ordered By: Chapincito Barraza on 02-07-2022 Epithelial cells.renal LM.HPF (Urine sed) [#/Area] 1-2 [HPF] [facility] Urobilinogen Auto test strip (U) [Mass/Vol]Ordered By: Chapincito Barraza on 02-07-2022 Urobilinogen (U) [Mass/Vol] Normal mg/dL Normal [facility] XR chest 1V portableon 02-07 XR chest 1V portable [facility] [place] [address] XRay Report Signed Patient: Jesus Wolf MR#: [id number] : 1955 Acct:[id number] Age/Sex: 66 / F ADM Date: 02/07/22 Loc: ER Room: Type: [facility] ER Attending Dr: Copies to: Chapincito Barraza MD Ordering Provider: Chapincito Barraza MD Date of Service: 02/07/22 XR/XR chest 1V portable: Chest Pain Chest 02/07/2022. CLINICAL DATA: Chest pain. FINDINGS: A single portable frontal view of the chest was obtained and is compared with a prior study 06/19/2019. The cardiac silhouette is at the upper limits of normal size. The pulmonary vasculature is within normal limits. Mild scarring is again noted in the mid right lung. No pulmonary consolidation or collapse is identified. No pneumothorax or pleural effusion is seen. XR/XR chest 1V portable IMPRESSION: No acute cardiopulmonary disease. Impression dictated by: Brendan Sanches Jr., M.D.02/07/2022 2:56 PM Dictation Location: [place] [address] Transcribed By: [facility] 02/07/221455 Dictated By: Brendan Sanches Jr, MD 02/07/221453 Signed By: 02/07/22 145 Normal [facility] pH Auto test strip (U)Ordere d By: Chapincito Barraza on 02-07-2022 pH (U) 5.0 [pH] 5.0-9.0 [facility] CBC W Auto Differential pane l (Bld)on 12-09-2021 Abs Immature Gran 0.03 k/uL <0.10 k/uL [facility] Basophils (Bld) [#/Vol] 0.04 10*3/uL <0.11 k/uL [facility] Basophils/100 WBC (Bld) 0.5 % [facility] Differential cell count method Nom (Bld) Auto [facility] Eosinophils (Bld) [#/Vol] 0.19 10*3/uL <0.46 k/uL [facility] Eosinophils/100 WBC (Bld) 2.5 % [facility] Erythrocyte distribution width (RBC) [Ratio] 13.7 % 11.5 - 15.0 % [facility] Hematocrit (Bld) [Volume fraction] 42.6 % 36.0 - 46.0 % [facility] Hemoglobin (Bld) [Mass/Vol] 13.8 g/dL 11.5 - 15.5 g/dL [facility] Immature Gran % 0.4 % [facility] Lymphocytes (Bld) [#/Vol] 1.69 10*3/uL 1.00 - 4.00 k/uL [facility] Lymphocytes/100 WBC (Bld) 22.4 % [facility] MCH (RBC) [Entitic mass] 32.1 pg 26.0 - 34.0 pg [facility] MCHC (RBC) [Mass/Vol] 32.4 g/dL 30.5 - 36.0 g/dL [facility] MCV (RBC) [Entitic vol] 99.1 fL 80.0 - 100.0 fL [facility] Monocytes (Bld) [#/Vol] 0.92 10*3/uL High <0.87 k/uL [facility] Monocytes/100 WBC (Bld) 12.2 % [facility] Neutrophils (Bld) [#/Vol] 4.66 10*3/uL 1.45 - 7.50 k/uL [facility] Neutrophils/100 WBC (Bld) 62.0 % [facility] Nucleated RBC (Bld) [#/Vol] 10*3/uL <0.01 k/uL [facility] Nucleated RBC/100 WBC (Bld) [Ratio] 0.0 /100 WBC [facility] Platelet mean volume (Bld) [Entitic vol] 10.5 fL 9.0 - 12.7 fL [facility] Platelets (Bld) [#/Vol] 231 10*3/uL 150 - 400 k/uL [facility] RBC (Bld) [#/Vol] 4.30 10*6/uL 3.90 - 5.2 0 m/uL [facility] WBC (Bld) [#/Vol] 7.53 10*3/uL 3.70 - 11.00 k/uL [facility] Comprehensive metabolic 2000 panelon 12-09-2021 Albumin [Mass/Vol] 4.0 g/dL 3.9 - 4.9 g/dL [facility] ALP [Catalytic activity/Vol] 120 U/L 34 - 123 U/L [facility] ALT [Catalytic activity/Vol] 27 U/L 7 - 38 U/L [facility] Anion gap [Moles/Vol] 11 mmol/L 9 - 18 mmol/L [facility] AST [Catalytic activity/Vol] 25 U/L 13 - 35 U/L [facility] Bilirubin [Mass/Vol] 0.6 mg/dL 0.2 - 1 .3 mg/dL [facility] Calcium [Mass/Vol] 10.3 mg/dL High 8.5 - 10. 2 mg/dL [facility] Chloride [Moles/Vol] 109 mmol/L High 97 - 10 5 mmol/L [facility] CO2 [Moles/Vol] 19 mmol/L Low 22 - 30 mmol/L [facility] Creatinine [Mass/Vol] 1.02 mg/dL High 0.58 - 0.96 mg/dL [facility] Estimated Glomerular Filtration Rate 61 mL/min/1.73m >=60 mL/min/1.73 m [facility] Glucose [Mass/Vol] 85 mg/dL 74 - 99 mg/dL [facility] Potassium [Moles/Vol] 4.6 mmol/L 3.7 - 5.1 mmol/L [facility] Protein [Mass/Vol] 6.1 g/dL Low 6.3 - 8.0 g/dL [facility] Sodium [Moles/Vol] 139 mmol/L 136 - 144 mmol/L [facility] Urea nitrogen [Mass/Vol] 26 mg/dL High 7 - 21 mg/dL [facility] ESR Westergren method (Bld) [Velocity]on 12-09-2021 ESR (Bld) [Velocity] 5 mm/h 0 - 20 mm/hr [facility] Laboratory - Chemistry and C hemistry - challengeon 12-09-2021 CRP [Mass/Vol] 0.6 mg/dL <0.9 mg/dL [facility] Laboratory - Hematology and Cell countson 12-09-2021 Complement C3 [Mass/Vol] 154 mg/dL 86 - 166 mg/dL [facility] Complement C4 [Mass/Vol] 35 mg/dL 13 - 46 mg/dL [facility] BRIEF OP NOTon 10-25-2021 BRIEF OP NOT HNO ID: [id number] Author: Dalila Cervantes DPM Service: Podiatry Author Type: Physician Type: Brief Op Note Filed: 10/25/2021 2:29 PM Note Text: BRIEF OPERATIVE / PROCEDURE NOTE LOG ID: [id number] SURGERY/PROCEDURE DATE: 10/25/2021 INCISION/PROCEDURE START TIME: 2:17 PM INCISION CLOSE/PROCEDURE END TIME: 2;24 PM SURGEON(S)/PROCEDURALIST( S) AND MATLAB DEVELOPER(S): Surgeon(s) and Role: * Dalila Cervantes DPM - Primary No Additional Staff SURGERY/PROCEDURE(S): Fluoroscopic guidance for needle placement bilateral feet Intra-articular local anesthetic cortisone injections tarsometatarsal joints 2 through 4 both feet ANESTHESIA: Local consisting of 9 cc of half percent Marcaine plain mixed with 1 cc of Kenalog 40 FINDINGS: Consistent with pre-op clinical and radiographic findings. 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 SIGNATURE: Dalila Cervantes DPM PATIENT NAME: Jesus Holguin Luciano DATE: October 25, 2021 TIME: 2:27 PM [facility] OPERATIVE NOon 10-25-2021 OPERATIVE NO HNO ID: [id number] Author: Dalila Cervantes DPM Service: Podiatry Author Type: Physician Type: Operative Report Filed: 10/25/2021 2:54 PM Note Text: Dalila Cervantes DPM Physician Podiatry Operative Report Signed Date of Service: 10/25/2021 2:46 PM Case Time: Procedures: Surgeons: 10/25/2021 2:17 PM FLUOROSCOPIC GUIDANCE FOR NEEDLE PLACEMENT ARTHROCENTESIS,ASPIRATION AND/OR INJECTION,SMALL JOINT OR BURSA W/O US GUIDANCE Dalila Glez (Dusty Dhaliwal DPM ? []Hide copied text []Marycarmen for details [facility] OPERATIVE REPORT ? NAME: ?JESUS WOLF ?CLINI C #: ?[id number] ? DATE:??10/25/2021?AGE: ???66 ? ? SURGEON 1: ??Dalila Cervantes DPM SURGEON 2: ? MATLAB DEVELOPER 1:??Newton Dhaliwal D.P.M. MATLAB DEVELOPER 2: ? OPERATION: 1. ?Fluoroscopic guidance for needle placement, bilateral feet (CPT 19696). ?2. ??Intra-articular ?local anesthetic cortisone injection, ?second ?through ?fourth ?tarsometatarsal joints of both feet (CPT 55531). ? ANESTHESIA: ?Local consisting of 4.5?mL of 0.5% Marcaine plain and mixed with 0.5 mL of ?Kenalog 40 for each foot. ? 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 ? 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 ? OPERATIVE INDICATIONS: ?This 66-year-old female contacted our?office?on 10/04/2021?requesting fluoroscopic-guided local anesthetic cortisone injection in both feet in her midfoot tarsometatarsal joints due to recurrence of pain. ?She has had ?this done before and would like to proceed with the same procedures and declined ?further conservative measures. ? OPERATIVE FINDINGS: ?Consistent with preop clinical and radiographic examinations. ? OPERATIVE PROCEDURE: ?The patient was brought from the preoperative holding area to ?the OR and left on the gurney. ?Utilizing the FluoroScan, we marked out her second ?through fourth tarsometatarsal joints of both feet dorsally with an?ink pen. ?After ?this was completed, the skin was prepped with both alcohol and?painted with Betadine. ?We then ?injected approximately 1.5?mL of the mixture of the local anesthetic cortisone into ?each joint of both feet. ?The area was cleansed with alcohol. ?A Band-Aid was ?applied. ?The patient was then discharged from the OR to recovery room and then to ?home. ?She will follow up in our office on an as needed basis, pending postprocedure ?progress. ?She was transported from OR to recovery room with vital signs stable and ?vascular status intact to both feet. ? The procedure was performed in conjunction with the resident, who was present in the ?operating room today under my direct supervision from skin to skin. ? START TIME: ?2:17 PM. ? END TIME: ?2:24 PM. ? ESTIMATED BLOOD LOSS: None. ? DRAINS: ?None. ? SPECIMENS: ?None. ? PROPHYLAXIS: ?None. ? MATERIALS: ?Local anesthetic mixture as above. ? COMPLICATIONS: ?None. ? CONDITION: ?Satisfactory. ? ? ? Dalila Cervantes DPM ? [facility] CONVERTED SURGICAL PATHOLOGY on 09-13-2021 CONVERTED ADDENDA ADDENDUM This addendum is issued to report the results of immunohistochemical stains. The original diagnoses remain unchanged. Immunohistochemistry for Helicobacter pylori performed on the gastric biopsy is negative (Block B1). Laboratory Developed Test (LDT) Disclaimer: Positive and negative controls stain appropriately. Performance characteristics of immunohistochemical, immunofluorescent and chromogenic in-situ hybridization tests have been determined by [facility]'s [facility] [place] ([facility]) in a manner consistent with CLIA requirements. One or more of these tests have not been cleared or approved by the FDA. [facility] is regulated under CLIA as qualified to perform high-complexity testing. These tests are used for clinical purposes. They should not be regarded as investigational or for research. [facility] CONVERTED CLINICAL HISTORY DIARRHEA, UNSPECIFIED TYPE [R19.7 (ICD-10-CM)]; EPIGASTRIC PAIN [R10.13 (ICD-10-CM)], LMP: NA A: R/O CELIAC B: R/O H PYLORI C-F: R/O MICROSCOPIC COLITIS, R/O UC [facility] CONVERTED COMPLETE REPORT ADDENDUM PRESENT Specimen originated from [facility] Specimen #: [id number] Submitting Physician: DIONE REINOSO MD, [facility] FINAL DIAGNOSIS 1. Duodenum, biopsy (A) - Duodenal mucosa with no significant diagnostic alteration. 2. Stomach, biopsy (B) - Chronic antral and fundic gastritis. - Immunohistochemistry for Helicobacter pylori will be reported in an addendum. 3. Colon, right, transverse, left, and rectum, biopsy (C-F) - Colonic mucosa with no significant diagnostic alteration. JENNYFER KEYS MD (Electronic Signature) SPECIMEN SUBMITTED A: DUODENUM, BIOPSY B: GASTRIC, BIOPSY C: RIGHT COLON, BIOPSY D: TRANSVERSE COLON, BIOPSY E: LEFT COLON, BIOPSY F: RECTAL, BIOPSY ADDENDUM Date Ordered: 09/16/2021 Date Reported: 09/16/2021 This addendum is issued to report the results of immunohistochemical stains. The original diagnoses remain unchanged. Immunohistochemistry for Helicobacter pylori performed on the gastric biopsy is negative (Block B1). Laboratory Developed Test (LDT) Disclaimer: Positive and negative controls stain appropriately. Performance characteristics of immunohistochemical, immunofluorescent and chromogenic in-situ hybridization tests have been determined by [facility]'s [facility] [place] ([facility]) in a manner consistent with CLIA requirements. One or more of these tests have not been cleared or approved by the FDA. [facility] is regulated under CLIA as qualified to perform high-complexity testing. These tests are used for clinical purposes. They should not be regarded as investigational or for research. Addendum Pathologist: JENNYFER KEYS MD Electronic Signature CLINICAL DATA DIARRHEA, UNSPECIFIED TYPE [R19.7 (ICD-10-CM)]; EPIGASTRIC PAIN [R10.13 (ICD-10-CM)], LMP: NA A: R/O CELIAC B: R/O H PYLORI C-F: R/O MICROSCOPIC COLITIS, R/O UC GROSS DESCRIPTION A. Received in formalin are two pieces of juan, soft tissue aggregating to 0.8 x 0.4 x 0.2 cm. Totally submitted in one cassette. B. Received in formalin are multiple pieces of juan, soft tissue aggregating to 1.3 x 0.2 x 0.2 cm. Totally submitted in one cassette. C. Received in formalin are multiple pieces of juan, soft tissue aggregating to 2.2 x 0.2 x 0.2 cm. Totally submitted in two cassettes. D. Received in formalin are multiple pieces of juan, soft tissue aggregating to 0.8 x 0.2 x 0.2 cm. Totally submitted in one cassette. E. Received in formalin are multiple pieces of juan, soft tissue aggregating to 1.4 x 0.2 x 0.2 cm. Totally submitted in one cassette. F. Received in formalin are multiple pieces of juan, soft tissue aggregating to 0.7 x 0.3 x 0.2 cm. Totally submitted in one cassette. Gross examination performed at [facility], [address] [place] [address] TTN 09/12/2021 9:01:08 PM Date of Report: 09/13/2021 Date of Procedure: 09/12/2021 Date of Receipt: 09/12/2021 Submitted by: DIONE REINOSO MD, MPH Location: [facility] Diagnostic interpretation performed at [place] [address]. CLIA Number: [id number] [facility] CONVERTED FINAL DIAGNOSIS 1. Duodenum, biopsy (A) - Duodenal mucosa with no significant diagnostic alteration. 2. Stomach, biopsy (B) - Chronic antral and fundic gastritis. - Immunohistochemistry for Helicobacter pylori will be reported in an addendum. 3. Colon, right, transverse, left, and rectum, biopsy (C-F) - Colonic mucosa with no significant diagnostic alteration. [facility] CONVERTED GROSS DESCRIPTION A. Received in formalin are two pieces of juan, soft tissue aggregating to 0.8 x 0.4 x 0.2 cm. Totally submitted in one cassette. B. Received in formalin are multiple pieces of juan, soft tissue aggregating to 1.3 x 0.2 x 0.2 cm. Totally submitted in one cassette. C. Received in formalin are multiple pieces of juan, soft tissue aggregating to 2.2 x 0.2 x 0.2 cm. Totally submitted in two cassettes. D. Received in formalin are multiple pieces of juan, soft tissue aggregating to 0.8 x 0.2 x 0.2 cm. Totally submitted in one cassette. E. Received in formalin are multiple pieces of jaun, soft tissue aggregating to 1.4 x 0.2 x 0.2 cm. Totally submitted in one cassette. F. Received in formalin are multiple pieces of juan, soft tissue aggregating to 0.7 x 0.3 x 0.2 cm. Totally submitted in one cassette. Gross examination performed at [facility], [address] [place] [address] TTN 09/12/2021 9:01:08 PM [facility] CONVERTED ORDERING PROVIDER Ordering Provider: DIONE REINOSO [facility] CONVERTED SPECIMENS DUODENUM, BIOPSY GASTRIC, BIOPSY RIGHT COLON, BIOPSY TRANSVERSE COLON, BIOPSY LEFT COLON, BIOPSY RECTAL, BIOPSY [facility] SURGICAL PATHOLOGYon [employer] Top ADDENDUM PRESENT Specimen originated from [facility] Specimen #: [id number] Submitting Physician: DIONE REINOSO MD, [facility] FINAL DIAGNOSIS 1. Duodenum, biopsy (A) - Duodenal mucosa with no significant diagnostic alteration. 2. Stomach, biopsy (B) - Chronic antral and fundic gastritis. - Immunohistochemistry for Helicobacter pylori will be reported in an addendum. 3. Colon, right, transverse, left, and rectum, biopsy (C-F) - Colonic mucosa with no significant diagnostic alteration. JENNYFER KEYS MD (Electronic Signature) SPECIMEN SUBMITTED A: DUODENUM, BIOPSY B: GASTRIC, BIOPSY C: RIGHT COLON, BIOPSY D: TRANSVERSE COLON, BIOPSY E: LEFT COLON, BIOPSY F: RECTAL, BIOPSY ADDENDUM Date Ordered: 09/16/2021 Date Reported: 09/16/2021 This addendum is issued to report the results of immunohistochemical stains. The original diagnoses remain unchanged. Immunohistochemistry for Helicobacter pylori performed on the gastric biopsy is negative (Block B1). Laboratory Developed Test (LDT) Disclaimer: Positive and negative controls stain appropriately. Performance characteristics of immunohistochemical, immunofluorescent and chromogenic in-situ hybridization tests have been determined by [facility]'s [facility] [place] ([facility]) in a manner consistent with CLIA requirements. One or more of these tests have not been cleared or approved by the FDA. [facility] is regulated under CLIA as qualified to perform high-complexity testing. These tests are used for clinical purposes. They should not be regarded as investigational or for research. Addendum Pathologist: JENNYFER KEYS MD Electronic Signature CLINICAL DATA DIARRHEA, UNSPECIFIED TYPE [R19.7 (ICD-10-CM)]; EPIGASTRIC PAIN [R10.13 (ICD-10-CM)], LMP: NA A: R/O CELIAC B: R/O H PYLORI C-F: R/O MICROSCOPIC COLITIS, R/O UC GROSS DESCRIPTION A. Received in formalin are two pieces of juan, soft tissue aggregating to 0.8 x 0.4 x 0.2 cm. Totally submitted in one cassette. B. Received in formalin are multiple pieces of juan, soft tissue aggregating to 1.3 x 0.2 x 0.2 cm. Totally submitted in one cassette. C. Received in formalin are multiple pieces of juan, soft tissue aggregating to 2.2 x 0.2 x 0.2 cm. Totally submitted in two cassettes. D. Received in formalin are multiple pieces of juan, soft tissue aggregating to 0.8 x 0.2 x 0.2 cm. Totally submitted in one cassette. E. Received in formalin are multiple pieces of juan, soft tissue aggregating to 1.4 x 0.2 x 0.2 cm. Totally submitted in one cassette. F. Received in formalin are multiple pieces of juan, soft tissue aggregating to 0.7 x 0.3 x 0.2 cm. Totally submitted in one cassette. Gross examination performed at [facility], [address] [place] [address] TTN 09/12/2021 9:01:08 PM Date of Report: 09/13/2021 Date of Procedure: 09/12/2021 Date of Receipt: 09/12/2021 Submitted by: DIONE REINOSO MD, MPH Location: [facility] Diagnostic interpretation performed at [place] [address]. CLIA Number: [id number] [facility] COLONOSCOPY DIAGNOSTICon [facility] EGD DIAGNOSTICon 09-12-2021 [facility] CBC (INCLUDES DIFF/PLT)on Basophils (Bld) [#/Vol] 0.042 10*3/uL Normal 0-200 [facility] Comment on above: Performed By: #### 6 399, 7600, 85519, 47872 #### [facility] [address] [address] Hat Designer: Jose John MD Basophils/100 WBC (Bld) 0.7 % Normal [facility] Comment on above: Performed By: #### 6 399, 7600, 18680, [id number] #### [facility] [address] [place] [address] Hat Designer: Jose John MD Eosinophils (Bld) [#/Vol] 0.222 10*3/uL Normal 15-500 [facility] Comment on above: Performed By: #### 6 399, 7600, 41055, 16150 #### [facility] of [address], [address] [place] [address] Hat Designer: Jose John MD Eosinophils/100 WBC (Bld) 3.7 % Normal [facility] Comment on above: Performed By: #### 6 399, 7600, 85619, 23274 #### [facility] of [place] [address] Hat Designer: Jose John MD Erythrocyte distribution width (RBC) [Ratio] 12.4 % Normal 11.0-15.0 [facility] Comment on above: Performed By: #### 6 399, 7600, 73076, 91404 #### [facility] of [address], [address] [place] [address] Hat Designer: Jose John MD Hematocrit (Bld) [Volume fraction] 46.1 % High 35.0-45.0 [facility] Comment on above: Performed By: #### 6 399, 7600, 92607, 27963 #### [facility] of [place] [address] Hat Designer: Jose John MD Hemoglobin (Bld) [Mass/Vol] 16.0 g/dL High 11.7-15.5 [facility] Comment on above: Performed By: #### 6 399, 7600, 93459, 06858 #### [facility] [place] [address] Hat Designer: Jose John MD Lymphocytes (Bld) [#/Vol] 1.638 10*3/uL Normal 850-3900 [facility] Comment on above: Performed By: #### 6 399, 7600, 33339, 55889 #### [facility] of [address], [address] [place] [address] Hat Designer: Jose John MD Lymphocytes/100 WBC (Bld) 27.3 % Normal [facility] Comment on above: Performed By: #### 6 399, 7600, 94394, 31640 #### [facility] of [address], [address] [place] [address] Hat Designer: Jose John MD MCH (RBC) [Entitic mass] 31.6 pg Normal 27.0-33.0 [facility] Comment on above: Performed By: #### 6 399, 7600, 82072, 39784 #### [facility] [place] [address] Hat Designer: Jose John MD MCHC (RBC) [Mass/Vol] 34.7 g/dL Normal 32.0-36.[address] [facility] Comment on above: Performed By: #### 6 399, 7600, 44284, 61506 #### [facility] of [address], [address] [place] [address] Hat Designer: Jose John MD MCV (RBC) [Entitic vol] 91.1 fL Normal 80.0-100.0 [facility] Comment on above: Performed By: #### 6 399, 7600, 74617, 47731 #### [facility] [place] [address] Hat Designer: Jose John MD Monocytes (Bld) [#/Vol] 0.714 10*3/uL Normal 200-950 [facility] Comment on above: Performed By: #### 6 399, 7600, 72097, 43721 #### [facility] [place] [address] Hat Designer: Jose John MD Monocytes/100 WBC (Bld) 11.9 % Normal [facility] Comment on above: Performed By: #### 6 399, 7600, 56984, 65600 #### [facility] of [address], [address] [place] [address] Hat Designer: Jose John MD Neutrophils (Bld) [#/Vol] 3.384 10*3/uL Normal 9948-4950 [facility] Comment on above: Performed By: #### 6 399, 7600, 05690, 44776 #### [facility] of [address], [address] [place] [address] Hat Designer: Jose John MD Neutrophils/100 WBC (Bld) 56.4 % Normal [facility] Comment on above: Performed By: #### 6 399, 7600, 65040, 52940 #### [facility] [place] [address] Hat Designer: Jose John MD Platelet mean volume (Bld) [Entitic vol] 10.9 fL Normal 7.5-12.5 [facility] Comment on above: Performed By: #### 6 399, 7600, 26837, 80767 #### [facility] of [address], [address] [place] [address] Hat Designer: Jose John MD Platelets (Bld) [#/Vol] 265 10*3/uL Normal 140-400 [facility] Comment on above: Performed By: #### 6 399, 7600, 06706, 43094 #### [facility] [place] [address] Hat Designer: Jose John MD RBC (Bld) [#/Vol] 5.06 10*6/uL Normal 3.80-5.10 [facility] Comment on above: Performed By: #### 6 399, 7600, 98054, 37684 #### [facility] [place] [address] Hat Designer: Jose John MD WBC (Bld) [#/Vol] 6.0 10*3/uL Normal 3.8-10.8 [facility] Comment on above: Performed By: #### 6 399, 7600, 07173, 38606 #### [facility] of [address], [address] [place] [address] Hat Designer: Jose John MD [facility] METABOLIC PANE [facility] 09-10-2021 Albumin [Mass/Vol] 4.5 g/dL Normal 3.6-5.1 [facility] Comment on above: Performed By: #### 6 399, 7600, 28189, 16475 #### [facility] of [address], [address] [place] [address] Hat Designer: Jose John MD Albumin/Globulin [Mass ratio] 2.5 {ratio} Normal 1.0-2.5 [facility] Comment on above: Performed By: #### 6 399, 7600, 08919, 94836 #### [facility] [place] [address] Hat Designer: Jose John MD ALP [Catalytic activity/Vol] 121 U/L Normal 37-153 [facility] Comment on above: Performed By: #### 6 399, 7600, 23070, 06724 #### [facility] of [address], [address] [place] [address] Hat Designer: Jose John MD ALT [Catalytic activity/Vol] 23 U/L Normal 6-29 [facility] Comment on above: Performed By: #### 6 399, 7600, 96290, 14443 #### [facility] [place] [address] Hat Designer: Jose John MD AST [Catalytic activity/Vol] 21 U/L Normal 10-35 [facility] Comment on above: Performed By: #### 6 399, 7600, 71251, 83176 #### [facility] [place] [address] Hat Designer: Jose John MD Bilirubin [Mass/Vol] 0.7 mg/dL Normal 0.2-1.2 [facility] Comment on above: Performed By: #### 6 399, 7600, 65993, 18819 #### [facility] of [address], [address] [place] [address] Hat Designer: Jose John MD BUN/CREATININE RATIO NOT APPLICABLE Normal 6-22 [facility] Comment on above: Performed By: #### 6 399, 7600, 16101, 46748 #### [facility] [address], [address] [place] [address] Hat Designer: Jose John MD Calcium [Mass/Vol] 10.9 mg/dL High 8.6-10.4 [facility] Comment on above: Performed By: #### 6 399, 7600, 57545, 22946 #### [facility] [place] [address] Hat Designer: Jose John MD Chloride [Moles/Vol] 106 mmol/L Normal 98-110 [facility] Comment on above: Performed By: #### 6 399, 7600, 21014, 96470 #### [facility] [place] [address] Hat Designer: Jose John MD CO2 [Moles/Vol] 28 mmol/L Normal 20-32 [facility] Comment on above: Performed By: #### 6 399, 7600, 38334, 25008 #### [facility] [place] [address] Hat Designer: Jose John MD Creatinine [Mass/Vol] 0.99 mg/dL Normal 0.50-0.99 [facility] Comment on above: Result Comment: For patients >49 years of age, the reference limit for Creatinine is approximately 13% higher for people identified as -Macanese. Performed By: #### 6 399, 7600, 83139, 62321 #### [facility] [place] [address] Hat Designer: Jose John MD eGFR NON-AFR. BAHRAINI 60 mL/min/1.73m2 Normal > OR = 60 [facility] Comment on above: Performed By: #### 6 399, 7600, 55176, 69650 #### [facility] [place] [address] Hat Designer: Jose John MD GFR/1.73 sq M.predicted among blacks MDRD (S/P/Bld) [Vol rate/Area] 69 mL/min/{1.73_m2} Normal > OR = 60 [facility] Comment on above: Performed By: #### 6 399, 7600, 10601, 61541 #### [facility] [place] [address] Hat Designer: Jose John MD Globulin (S) [Mass/Vol] 1.8 g/dL Low 1.9-3.7 [facility] Comment on above: Performed By: #### 6 399, 7600, 13156, 52105 #### [facility] [place] [address] Hat Designer: Jose John MD Glucose [Mass/Vol] 77 mg/dL Normal 65-99 [facility] Comment on above: Result Comment: Fasting reference interval Performed By: #### 6 399, 7600, 26527, 95795 #### [facility] [place] [address] Hat Designer: Jose John MD Potassium [Moles/Vol] 5.0 mmol/L Normal 3.5-5.3 [facility] Comment on above: Performed By: #### 6 399, 7600, 05440, 74843 #### [facility] [place] [address] Hat Designer: Jose John MD Protein [Mass/Vol] 6.3 g/dL Normal 6.1-8.1 [facility] Comment on above: Performed By: #### 6 399, 7600, 52979, 08620 #### [facility] [place] [address] Hat Designer: Jose John MD Sodium [Moles/Vol] 139 mmol/L Normal 135-146 [facility] Comment on above: Performed By: #### 6 399, 7600, 62322, 67437 #### [facility] [address], [address] [place] [address] Hat Designer: Jose John MD Urea nitrogen [Mass/Vol] 25 mg/dL Normal 7-25 [facility] Comment on above: Performed By: #### 6 399, 7600, 06598, 85591 #### [facility] [place] [address] Hat Designer: Jose John MD LIPID PANEL, [facility] 08-18 Cholesterol [Mass/Vol] 129 mg/dL Normal <200 [facility] Comment on above: Order Comment: FASTI NG:YES FASTING: YES Performed By: #### 6 399, 7600, 29815, 54448 #### [facility] [address], [address] [place] [address] Hat Designer: Jose John MD Cholesterol in HDL [Mass/Vol] 49 mg/dL Low > OR = 50 [facility] Comment on above: Order Comment: FASTI NG:YES FASTING: YES Performed By: #### 6 399, 7600, 05548, 04974 #### [facility] [place] [address] Hat Designer: Jose John MD Cholesterol in LDL [Mass/Vol] 57 mg/dL Normal [facility] Comment on above: Order Comment: FASTI NG:YES FASTING: YES Result Comment: Refe rence range: <100 Desirable range <100 mg/dL for primary prevention; <70 mg/dL for patients with CHD or diabetic patients with > or = 2 CHD risk factors. LDL-C is now calculated using the Rashida calculation, which is a validated novel method providing better accuracy than the Friedewald equation in the estimation of LDL-C. Patrick FUNEZ et al. TORIN. 2013;310(19): 8864-4257 (http://education.[employer].Orbiter/faq/TVG404) Performed By: #### 6 399, 7600, 69380, 21448 #### [facility] [place] [address] Hat Designer: Jose John MD Cholesterol.total/Chol esterol in HDL [Mass ratio] 2.6 {ratio} Normal <5.0 [facility] Comment on above: Order Comment: FASTI NG:YES FASTING: YES Performed By: #### 6 399, 7600, 68450, 11573 #### [facility] [place] [address] Hat Designer: Jose John MD NON HDL CHOLESTEROL 80 mg/dL (calc) Normal <130 [facility] Comment on above: Order Comment: FASTI NG:YES FASTING: YES Result Comment: For patients with diabetes plus 1 major ASCVD risk factor, treating to a non-HDL-C goal of <100 mg/dL (LDL-C of <70 mg/dL) is considered a therapeutic option. Performed By: #### 6 399, 7600, 18780, 34287 #### [facility] [place] [address] Hat Designer: Jose John MD Triglyceride [Mass/Vol] 155 mg/dL High <150 [facility] Comment on above: Order Comment: FASTI NG:YES FASTING: YES Performed By: #### 6 399, 7600, 46339, 21363 #### [facility] [place] [address] Hat Designer: Jose John MD TSH+FREE T4on 09-10-2021 Free T4 [Mass/Vol] 1.2 ng/dL Normal 0.8-1.8 [facility] Comment on above: Performed By: #### 6 399, 7600, 75476, 70158 #### [facility] [place] [address] Hat Designer: Jose John MD TSH Qn 4.41 m[IU]/L Normal 0.40-4.50 [facility] Comment on above: Performed By: #### 6 399, 7600, 17265, 77572 #### [facility] [address], [address] [place] [address] Hat Designer: Jose POWELLOLETEstelaon 07-25-2021 OBSOLETE Refill (AVPRAD) ----- JESUS WOLF ([id number]) 1955 F Date Time Provider Department 07/25/21 NEAL GABRIEL During your visit today, we recorded the following information about you: Neal Gabriel 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 Pineda 03/15/2020----- and it has been there ever since, including the OV from Dr. Aggarwal 12/12/[address] Mcfadden 03/05/2021 (see below)--- not sure why every OV note states the metoprolol tartrate if staff are reviewing her meds with every visit--- including her most recent visit with nirav 05/16/2021 THUS the reason why I refilled as such SO if she is indeed that is taking the metoprolol succinate 50mg tab--- is it daily? (I am not sure what Twip means --- see above) Anna Mathew RN 07/26/2021 11:04 AM Signed Looking at her outside medications in Care Everywhere, she has been on Metoprolol succinate 50mg twice daily for several years. I sent the patient a message to clarify how she is taking the metoprolol succinate. Anna Mathew RN 07/26/2021 12:59 PM Signed Pt messaged back with clarification on directions Patient's request for medication is as follows: Pending Prescriptions Disp Refills METOPROLOL SUCCINATE ER 50 MG TABLET,EXTENDED RELEASE 24 HR 270 tablet 1 Simg in am and 100mg in pm. Prescription(s) as above. Please process accordingly. JITENDRA Joseph PA-C 07/26/2021 3:26 PM Signed sent and short acting dc'd Allergies As of Date: 07/25/2021 Noted Allergy Reaction DOFETILIDE 03/15/2020 14 - Other: See Comments 10 - Anaphylaxis Comments: V-tach SULFA (SULFONAMIDE ANTIBIOTICS) 02/21/2010 11 - Vomiting Comments: total body swelling and kidney shut down, body aches and rash CONTRAST DYE 08/28/2010 14 - Other: See Comments Comments: (Deep seafood) hot flashes, sweating. CODEINE 02/21/2010 14 - Other: See Comments Comments: severe headaches COMPAZINE (PROCHLORPERAZINE EDISY*02/21/2010 14 - Other: See Comments Comments: loss control of left side of face TETNUS (TETANUS VACCINES AND TOXO*02/21/2010 14 - Other: See Comments Comments: red spot in area of shot Date Reviewed: 05/16/2021 Reviewed by: Rachelle Cotton Ma - Fully Assessed Primary Visit Diagnosis:PAF (paroxysmal atrial fibrillation) (HCC) [I48.0] Order(s):metoprolol succinate ER (TOPROL XL) 50 mg 24 hr [id number] in am and 100mg in pm.Disp: 270 tabletRfl: 1 Prescriptions as of 07/26/2021 - metoprolol succinate ER (TOPROL XL) 50 mg 24 hr tablet 50mg in am and 100mg in pm. - colestipol (COLESTID) 1 gram tablet Take 2 tablets by mouth twice daily. - iv contrast (will be provided with radiology test) MRI PANC/JEANIE Inject, intravenously, once for 1 dose. No IV access, insert saline lock prior to the beginning of sedation, infusion, injection of imaging exam. Discontinue saline lock post exam. If Pt. has a central line or IVAD, may access for administration according to line specific nursing protocol. Once exam is complete flush line and de-access according to line specific nursing protocol in the MR contrast administration guidelines link. - omeprazole (PRILOSEC) 40 mg capsule Take 1 capsule by mouth once daily. - mycophenolate Mofetil (CELLCEPT) 500 mg tablet take 2 tablets by mouth daily - methylPREDNISolone (MEDROL DOSE-PACK) 4 mg Dose-Pack As Instructed per package - atorvastatin (LIPITOR) 40 mg tablet Take 1 tablet by mouth once daily. - celecoxib (CELEBREX) 200 mg capsule Take 200 mg by mouth once daily. - Mesalamine (LIALDA) 1.2 gram EC tablet Take 4 tablets by mouth once daily. - Amoxicillin 500 mg tablet Take 4 tablets by mouth 1 hour prior to procedure and 2 tablets by mouth 6 hours after procedure - hydrOXYchloroQUINE (PLAQUENIL) 200 mg tablet take 1 tablet by mouth twice a day take with food or milk NEEDS LABS - Bifidobacterium infantis (ALIGN ORAL) Take by mouth once daily. - belimumab (BENLYSTA INTRAVENOUS) Inject intravenously. Patient reports she receives infusion every 3 months - ferrous sulfate (IRON) 325 mg (65 mg iron) tablet Take 1 tablet by mouth once daily. - venlafaxine ER (EFFEXOR XR) 150 mg 24 hr capsule Take 1 capsule by mouth once daily. - levothyroxine (SYNTHROID) 75 mcg tablet Take 75 mcg by mouth once daily. - PREDNISONE ORAL Pt states only taking medication before infusions. - apixaban (ELIQUIS) 5 mg tab(s) Take 1 tablet by mouth twice daily. - furosemide (LASIX) 40 mg tablet Take 20 mg by mouth once daily. - busPIRone (BUSPAR) 10 mg tablet Take 10 mg by mouth daily at bedtime. - spironolactone (ALDACTONE) 50 mg tablet Take 50 mg by mout (more content not included)... Normal [facility] 07-23-2021 [facility] HNO ID: [id number] Author: RT Pancho(R) Service: ? Author Type: Technologist Type: Allied Health Filed: 07/23/2021 8:58 AM Note Text: Radiology Service Progress Note DATE OF SERVICE: July 23, 2021 TIME: 8:57 AM PATIENT IDENTITY VERIFICATION COMPLETED USING TWO (2) STANDARD IDENTIFIERS: Name and Date of confirmed by patient verbally and Name and Date of confirmed by identification band. FALL SCREENING: Has the patient had 2 falls in the last year or 1 fall with injury or currently using an Ambulatory Assistive Device (Walker, Cane, Wheelchair, Crutches, etc.)? No PATIENT GENDER DATA: Female. status: : No status: NO. PATIENT RELEVANT IMPLANT DATA REVIEWED: Yes ALLERGIES: Reviewed and unchanged CONTRAST ALLERGY: NO. EXAM: MRI - CONTRAST TYPE: GROUP II PERIPHERAL IV DATA: Ambulatory: A peripheral IV was started in the Right antecubital site with a Angio cath/Butterfly: 22 gauge. RADIOLOGY DEPARTMENT: MR; Exam(s) Completed: Body: Pancreas/Biliary SIGNATURE: Radha Plunkett, RT(R), Dian García RT PATIENT NAME: Jesus Wolf DATE: July 23, 2021 TIME: 8:57 AM [facility] MRI PANC/JEANIE WO/W IVCONon MRI PANC/JEANIE WO/W IVCON * * *Final Report* * * DATE OF EXAM: Jul 23 2021 9:12AM [facility] 0730 - MRI PANC/JEANIE WO/W IVCON / PROCEDURE REASON: Pancreatic cyst * * * * Physician Interpretation * * * * MRI ABDOMEN WITHOUT AND WITH IV CONTRAST CLINICAL HISTORY: Pancreatic cyst. TECHNIQUE: Magnet: 1.5T scanner. Multiplanar MRI of the abdomen with multiple sequences, performed before and after intravenous contrast. Additional MR cholangiopancreatography sequences were performed. Image post-processing {Maximum intensity Projection (MIP), Volume-rendered (VR), Surface shaded display images (SSD) or complex volumetric analysis} was performed with images created, reviewed and archived, but without concurrent physician supervision. Contrast: Intravenous: 20 ml of Dotarem COMPARISON: 07/04/2020 RESULT: Liver: Normal morphology. Diffuse hepatic steatosis. No mass. Biliary: No intrahepatic or extrahepatic bile duct dilation. No biliary filling defect. Gallbladder is normal. Spleen: No mass. No splenomegaly. Pancreas: Redemonstrated pancreatic cystic lesions. For example 0.8 cm cystic lesion in the pancreatic tail is unchanged from prior study. Additional 0.5 cm cyst in the pancreatic body (4:38) and 0.8 cm cyst in the uncinate process is stable from prior exam. No enhancing pancreatic mass. No pancreatic ductal dilation. Adrenals: No mass. Kidneys: No solid or cystic mass. No hydronephrosis. GI: No dilated bowel or wall thickening along imaged segments. Lymph nodes: No abdominal lymphadenopathy. Mesentery / Peritoneum / Retroperitoneum: No ascites or mass. Vasculature: The celiac axis and SMA are patent. The portal vein and branches, splenic vein, SMV, and hepatic veins are patent. No aortic or iliac artery aneurysm. Bones/Soft Tissues: No suspicious lesion. Lower chest: Unremarkable. 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 Continued follow-up is recommended. No pancreatic mass. Rn Documentation: PSCB Transcribe Date/Time: Jul 23 2021 1:06P Dictated by : SHALONDA HILL MD This examination was interpreted and the report reviewed and electronically signed by: SHALONDA HILL MD on Jul 23 2021 1:47PM EST [id number] Normal [facility] Patient Letter FTon 2020 Patient Letter [facility] (Inserted Image. [place] ble to display) April 29, 2021 JESUS WOLF [address] [place] [address] JESUS WOLF 1955 Dear Jesus, This is a SECOND ATTEMPT to remind you that you are due for an appointment with [facility]. Please contact our office at [phone] to schedule an appointment at your earliest convenience. Thank you, [facility] Normal [facility] Reminderson 04-29-2021 Reminders - From: Apryl Cobb To: [facility] - Reminders/Recalls; Sent: 11/14/2020 13:49:43 EDT Show up: 03/17/2021 13:49:00 EDT Subject: Ambulatory Reminder Due Date/Time: 04/28/2021 13:48:00 EDT Reminder/Recall haydee 5 year recall 04/28/2021 first recall letter second recall letter Normal [facility] US ABD RIGHT UPPER QUADRANTo n 04-10-2021 US ABD RIGHT UPPER QUADRANT * * *Final Report* * * DATE OF EXAM: Apr 10 2021 6:55AM VHU 1032 - US ABD RIGHT UPPER QUADRANT / PROCEDURE REASON: multiple diagnoses * * * * Physician Interpretation * * * * EXAMINATION: RIGHT UPPER QUADRANT AND SPLEEN ULTRASOUND CLINICAL HISTORY: Pancreatitis, cholelithiasis. TECHNIQUE: Sonography of the right upper quadrant was performed. Images were obtained and stored in a permanent archive. MQ: URUQ_2 COMPARISON: None. RESULT: Pancreas: Normal sonographic appearance. Portions obscured: tail Liver: Echotexture: Coarse Echogenicity: Heterogeneous Surface contour: Smooth Lesions: None. Biliary: No intrahepatic biliary duct dilation. CBD: 0.6 cm at the hilum. Gallbladder: Normal caliber -Contents: No cholelithiasis -Wall: Normal the previously described hyperechoic focus within the wall is not visualized on the current examination. -Other: No pericholecystic fluid. Right and left Kidney: No hydronephrosis. Ascites: None. Spleen: The craniocaudal length of the spleen is 8.9 cm, normal. There are no splenic lesions. There are calcifications likely representing granulomata. IMPRESSION: 1. No gallstones or biliary dilatation. 2. Coarse heterogeneous liver suspicious for steatosis and/or diffuse hepatocellular disease. Rn Documentation: MILLER Transcribe Date/Time: Apr 10 2021 7:09A Dictated by : JANETT EDMONDS MD This examination was interpreted and the report reviewed and electronically signed by: JANETT EDMONDS MD on Apr 10 2021 7:15AM EST [id number] Normal [facility] US ABD SPLEEN -NBon 04-10-20 US ABD SPLEEN -NB * * *Final Report* * * DATE OF EXAM: Apr 10 2021 6:55AM U 1232 - US ABD SPLEEN -NB / PROCEDURE REASON: multiple diagnoses * * * * Physician Interpretation * * * * EXAMINATION: RIGHT UPPER QUADRANT AND SPLEEN ULTRASOUND CLINICAL HISTORY: Pancreatitis, cholelithiasis. TECHNIQUE: Sonography of the right upper quadrant was performed. Images were obtained and stored in a permanent archive. MQ: URUQ_2 COMPARISON: None. RESULT: Pancreas: Normal sonographic appearance. Portions obscured: tail Liver: Echotexture: Coarse Echogenicity: Heterogeneous Surface contour: Smooth Lesions: None. Biliary: No intrahepatic biliary duct dilation. CBD: 0.6 cm at the hilum. Gallbladder: Normal caliber -Contents: No cholelithiasis -Wall: Normal the previously described hyperechoic focus within the wall is not visualized on the current examination. -Other: No pericholecystic fluid. Right and left Kidney: No hydronephrosis. Ascites: None. Spleen: The craniocaudal length of the spleen is 8.9 cm, normal. There are no splenic lesions. There are calcifications likely representing granulomata. IMPRESSION: 1. No gallstones or biliary dilatation. 2. Coarse heterogeneous liver suspicious for steatosis and/or diffuse hepatocellular disease. Rn Documentation: MILLER Transcribe Date/Time: Apr 10 2021 7:09A Dictated by : JANETT EDMONDS MD This examination was interpreted and the report reviewed and electronically signed by: JANETT EDMONDS MD on Apr 10 2021 7:15AM EST [id number] [facility] Patient Letter FTon 2020 Patient Letter [facility] (Inserted Image. [place] ble to display) March 27, 2021 JESUS WOLF [address] [place] [address] JESUS WOLF 1955 Dear Jesus, This is a reminder that you are due for an appointment with [facility]. Please contact our office at [phone] to schedule an appointment at your earliest convenience. Thank you, [facility] IMAGE-GUIDED PAP W/AGE BASED SCR PROTOCOLSon 03-08-2021 COMMENT Normal [facility] Comment on above: Result Comment: This order for age-based cervical cancer and STI screening follows ACOG guidelines(PB 168, 140, IQT438). See individual assays for performing site location. Performed By: #### 9 [id number], [id number] #### [facility]-[address], [address] [place] [address] - [place] [address] Hat Designer: Jose John MD Result Comment: EXPL ANATORY NOTE: The Pap is a screening test for cervical cancer. It is not a diagnostic test and is subject to false negative and false positive results. It is most reliable when a satisfactory sample, regularly obtained, is submitted with relevant clinical findings and history, and when the Pap result is evaluated along with historic and current clinical information. THINPREP TIS PAP AND HPV mRN A E6/E7 REFLEX HPV 16,18/45on 03-08-2021 CLINICAL INFORMATION: Normal [facility] Comment on above: Result Comment: None given Performed By: #### 9 1414, 30461 #### [facility] [address], [address] [place] [address] Hat Designer: Jose John MD COMMENT: Normal [facility] Comment on above: Result Comment: This Pap test has been evaluated with computer assisted technology. Parabasal cells in smears that lack maturation due to atrophy or other hormonal reasons cannot be differentiated from transformation zone cells. Accordingly, presence or absence of endocervical or transformation zone components cannot be reported in this patient. Performed By: #### 9 1414, [id number] #### [facility], [address] [place] [address] Hat Designer: Jose John MD PRINTER ASSISTANT: Normal [facility] Comment on above: Result Comment: [facility], CT(ASCP) CT screening location: [place] [address]. Performed By: #### 9 1414, 75213 #### [facility]-[place] [address] Hat Designer: Jose John MD HPV mRNA E6/E7 Not detected Normal Not Detected [facility] Comment on above: Result Comment: Meth odology: Assembler Convertible Top-Mediated Amplification This assay detects E6/E7 viral messenger RNA (mRNA) from 14 high-risk HPV types (16,18,31,33,35,39,45,51,52,56,58,59,66,68). The analytical performance characteristics of this assay have been determined by [facility]. The modifications have not been cleared or approved by the FDA. This assay has been validated pursuant to the CLIA regulations and is used for clinical purposes. For additional information, please refer to http://education.PneumRx.Orbiter/faq/QWC137d2 (This link if provided for information/ educational purposes only.) NO COLLECTION DATE RECEIVED. WE HAVE USED THE DATE THE SPECIMEN WAS RECEIVED BY THIS LABORATORY THE COLLECTION DATE. IF THIS IS INCORRECT, PLEASE CONTACT CLIENT SERVICES. PHONE NUMBER: [phone] Performed By: #### 9 1414, 11499 #### [facility], [address] [place], [place] [id number] Hat Designer: Jose John MD INTERPRETATION/RESULT: Normal [facility] Comment on above: Result Comment: Nega tive for intraepithelial lesion or malignancy. Atrophic pattern; predominantly parabasal cells Performed By: #### 9 1414, 98712 #### [facility], [address] [place], [place] [id number] Hat Designer: Jose John MD LMP: Normal [facility] Comment on above: Result Comment: None given Performed By: #### 9 1414, 20270 #### [facility], [address] [place], [place] [id number] Hat Designer: Jose John MD PREV. BX: Normal [facility] Comment on above: Result Comment: None given Performed By: #### 9 1414, 09599 #### [facility], [address] [place] [phone] Hat Designer: Jose John MD PREV. PAP: Normal [facility] Comment on above: Result Comment: None given Performed By: #### 9 1414, 65465 #### [facility], [address] [place] [phone] Hat Designer: Jose John MD SOURCE: Normal [facility] Comment on above: Result Comment: None given Performed By: #### 9 1414, 35088 #### [facility], [address] [place] [phone] Hat Designer: Jose John MD STATEMENT OF ADEQUACY: Normal [facility] Comment on above: Result Comment: SATI SFACTORY FOR EVALUATION Performed By: #### 9 1414, 43421 #### [facility], [address] [place] [phone] Hat Designer: Jose John MD ALLIED HEALTHon 12-21-2020 ALLIED HEALTH HNO ID: [id number] Author: Padmini Keller RDMS Service: Radiology Author Type: Shirt Presser Type: Allied Health Filed: 12/20/2020 11:52 PM Note Text: Radiology Service Progress Note PATIENT NAME: Jesus Wolf DATE OF SERVICE: December 20, 2020 TIME: 11:52 PM PATIENT IDENTITY VERIFICATION COMPLETED USING TWO (2) IDENTIFIERS: Name and Date of confirmed by patient verbally. FALL SCREENING: Has the patient had 2 falls in the last year or 1 fall with injury or currently using an Ambulatory Assistive Device (Walker, Cane, Wheelchair, Crutches, etc.)? Inpatient: Screened on floor PATIENT GENDER DATA: Female. status: : No status: NO. PATIENT RELEVANT IMPLANT DATA REVIEWED: Not Applicable RADIOLOGY DEPARTMENT: Ultrasound PERIPHERAL IV DATA: Not applicable SIGNED BY: Padmini Keller RDMS December 20, 2020 11:52 PM Normal [facility] Basic Metabolic Panlon 12-21 Anion gap [Moles/Vol] 7 mmol/L Low 9-18 [facility] Comment on above: Performed By: #### C BC, BMP ####[place] [address] [address] Calcium [Mass/Vol] 9.6 mg/dL Normal 8.5-10.2 [facility] Comment on above: Performed By: #### C BC, BMP ####[place] [address] [address] Chloride [Moles/Vol] 98 mmol/L Normal 97-105 [facility] Comment on above: Performed By: #### C BC, BMP ####[place] [address] [address] CO2 [Moles/Vol] 25 mmol/L Normal 22-30 [facility] Comment on above: Performed By: #### C BC, BMP ####[facility] Creatinine [Mass/Vol] 0.77 mg/dL Normal 0.58-0.96 [facility] Comment on above: Performed By: #### C BC, BMP ####[address] eGFR- Amer. >60 Normal >60 [facility] Comment on above: Performed By: #### C BC, BMP ####[address] eGFR-All Other Races >60 Normal >60 [facility] Comment on above: Result Comment: eGFR (Estimated GFR) Units of measure: mL/min/1.73 meters squared eGFR is derived from the reexpressed MDRD Study equation using the following parameters: serum creatinine, age, gender and race. The creatinine assay has been calibrated to be traceable to IDMS. An eGFR <60 mL/min/1.73m2 for >3 months is consistent with chronic kidney disease. Refer to KDOQI guidelines for clinical interpretation. In patients with unstable renal function, e.g. those with acute kidney injury, the eGFR may not accurately reflect actual GFR. Performed By: #### C JACKIE, BMP ####[address] Glucose [Mass/Vol] 132 mg/dL High 74-99 [facility] Comment on above: Performed By: #### C JACKIE, BMP ####[address] Potassium [Moles/Vol] 4.6 mmol/L Normal 3.7-5.1 [facility] Comment on above: Performed By: #### C JACKIE, BMP ####[address] Sodium [Moles/Vol] 130 mmol/L Low 136-144 [facility] Comment on above: Performed By: #### C BC, BMP ####[address] Urea nitrogen [Mass/Vol] 15 mg/dL Normal 7-21 [facility] Comment on above: Performed By: #### C JACKIE, BMP ####[place] [phone] CASE MANAGEMon 12-21-2020 CASE MANAGEM HNO ID: [id number] Author: Joslyn Booker RN Service: ? Author Type: Registered Nurse Type: Care Mgt Progress Note Filed: 12/21/2020 1:41 PM Note Text: CARE MANAGEMENT DISCHARGE NOTE SERVICE DATE: 12/21/2020 SERVICE TIME: 1315 LOS: 0 days Admission Date: 12/18/2020 DISCHARGE ARRANGEMENT (list agency and phone number) Discharge Arrangement: Home;Home Senior Living Care: PT;OT Provider Name: Valerie [facility] HANDOFF COMMUNICATION: Handoff to: Primary Care Physician TRANSPORTATION ARRANGEMENTS: Transportation Arrangements: Car ADDITIONAL CONTACT RESOURCES: summary of care Patient to discharge home with her providing transportation. She has all DME for home. Prescriptions delivered to the bedside. [facility] to provide home care. Summary of care sent to care team, PCP, [facility]. SIGNATURE: Joslyn Booker RN PATIENT NAME: Jesus Wolf DATE: December 21, 2020 TIME: 1:40 PM PAGER/CONTACT #: [phone] [facility] CBCon 12-21-2020 Absolute nRBC 0.02 k/uL High <0.01 [facility] Comment on above: Performed By: #### C JACKIE BMP ####[place] [address] [place] [phone] Erythrocyte distribution width (RBC) [Ratio] 13.8 % Normal 11.5-15.0 [facility] Comment on above: Performed By: #### C JACKIE, BMP ####[place] [phone] Hematocrit (Bld) [Volume fraction] 30.4 % Low 36.0-46.0 [facility] Comment on above: Performed By: #### C JACKIE, BMP ####[place] [address] [place] [phone] Hemoglobin (Bld) [Mass/Vol] 9.6 g/dL Low 11.5-15.5 [facility] Comment on above: Performed By: #### C JACKIE, BMP ####[address] MCH 30.9 pG Normal 26.0-34.0 [facility] Comment on above: Performed By: #### C BC, BMP ####[address] MCHC (RBC) [Mass/Vol] 31.6 g/dL Normal 30.5-36.0 [facility] Comment on above: Performed By: #### C BC, BMP ####[address] MCV (RBC) [Entitic vol] 97.7 fL Normal 80.0-100.0 [facility] Comment on above: Performed By: #### C JACKIE, BMP ####[address] Platelet mean volume (Bld) [Entitic vol] 10.8 fL Normal 9.0-12.7 [facility] Comment on above: Performed By: #### C BC, BMP ####[address] Platelets (Bld) [#/Vol] 154 10*3/uL Normal 150-400 [facility] Comment on above: Performed By: #### C BC, BMP ####[address] RBC (Bld) [#/Vol] 3.11 10*6/uL Low 3.90-5.20 [facility] Comment on above: Performed By: #### C BC, BMP ####[address] WBC (Bld) [#/Vol] 10.32 10*3/uL Normal 3.70-11.00 [facility] Comment on above: Performed By: #### C BC, BMP ####[address] CNDSon 12-21-2020 CNDS HNO ID: [id number] Author: Helene Vaughan PA-C Service: Orthopaedic Surgery Author Type: Physician Wire Communications Engineer Type: Discharge Summary Filed: 12/21/2020 9:29 AM Note Text: ----- Attestation signed by Jose Lovelace Jr., MD at 12/21/2020 9:32 AM agree ----- Addendum: Patient underwent haleigh duplex d/t severe right inner thigh pain. Result was negative. Going home pain medication changed to tramadol per nursing request. She is ready to go home today (12/21/20). - Helene Vaughan PA-C DISCHARGE SUMMARY Patient Name: Jesus Wolf : 1955 ADMISSION DATE: 12/18/2020 DISCHARGE DATE: 12/21/20 Attending Physician: Jose Lovelace Jr., MD Primary Diagnosis: Primary osteoarthritis of right hip [M16.11] Operations During Hospitalization: Procedure(s) (LRB): ARTHROPLASTY REPLACE JOINT TOTAL HIP (Right) Procedures During Hospitalization: as above Hospital Course: Jesus is a 65 year old female complaining of right Hip pain not responsive to a comprehensive course of conservative treatment. Right hip total arthroplasty was proposed and the patient wishes to proceed and was medically cleared prior to the procedure. Patient underwent a Right hip total arthroplasty and was transferred to the PACU in stable condition, She was then admitted to the hospital. Post operatively She did well. Post-operative HgB was stable and within acceptable range and remained there throughout the hospital stay not requiring transfusion. Wound was without sign of infection. She was able to actively participate in a physical and occupational therapy program for gait training and mobilization. Due to the operative findings and procedure performed which is consistent with a major orthopedic procedure, the postoperative analgesia will exceed the allowable morphine equivalent dose. Patient Condition at Discharge: Stable Discharge Disposition: Home with Home Health Care Discharge Medications: Luciano, Jesus Holguin Home Medication Instructions SHELIA:[id number] Printed on:12/19/20 7634 Medication Information acetaminophen (TYLENOL) 500 mg tablet Take 2 tablets by mouth three times daily for 7 days. apixaban (ELIQUIS) 5 mg tab(s) Take 1 tablet by mouth twice daily. atorvastatin (LIPITOR) 40 mg tablet Take 1 tablet by mouth once daily. belimumab (BENLYSTA INTRAVENOUS) Inject intravenously. Patient reports she receives infusion every 3 months Bifidobacterium infantis (ALIGN ORAL) Take by mouth. busPIRone (BUSPAR) 10 mg tablet Take 10 mg by mouth daily at bedtime. CALCIUM CARBONATE/VITAMIN D3 (CALCIUM 600 + D ORAL) Take by mouth once daily. celecoxib (CELEBREX) 200 mg capsule Take 1 capsule by mouth once daily for 14 days. Cholecalciferol, Vitamin D3, 2,000 unit cap Take by mouth once daily. docusate sodium (COLACE) 100 mg capsule Take 1 capsule by mouth twice daily. ferrous sulfate (IRON) 325 mg (65 mg iron) tablet Take 1 tablet by mouth once daily. furosemide (LASIX) 40 mg tablet Take 40 mg by mouth every other day. hydrOXYchloroQUINE (PLAQUENIL) 200 mg tablet take 1 tablet by mouth twice a day take with food or milk NEEDS LABS levothyroxine (SYNTHROID) 75 mcg tablet Take 75 mcg by mouth once daily. Mesalamine (LIALDA) 1.2 gram EC tablet Take 4 tablets by mouth once daily. metoprolol tartrate, short acting, (LOPRESSOR) 50 mg tablet Take 50 mg by mouth three times daily. multivitamins w-minerals/lut(CENTRUM SILVER TAB) Take one(1) tablet daily. mycophenolate Mofetil (CELLCEPT) 500 mg tablet take 2 tablets by mouth every morning and 1 every evening Tramadol 50mg Q6 hours PRN for [address] (PROTONIX) 40 mg tablet Take 1 tablet by mouth DAILY (6 AM) for 14 days. PREDNISONE ORAL Pt states only taking medication before infusions. spironolactone (ALDACTONE) 50 mg tablet Take 50 mg by mouth once daily. venlafaxine ER (EFFEXOR XR) 150 mg 24 hr capsule Take 1 capsule by mouth once daily. vitamin b complex(B COMPLEX TAB) one daily 65yr WF cc right hip pain status post right hip arthroplasty Pain is 9/10 constant aching Received flexeril and oxyir but then had side effects Pos spasms denies fever, chills, diarrhea, constipation, nausea, vomiting, CP, SOB, weakness, numbness, tingling or loss of bladder bowel control Objective: I have seen and examined the patient and confirmed the above. The HPI was explored in detail with the patient and is complete. As above, briefly Physical Exam: Blood pressure 119/69, pulse 85, temperature 36.4 ?C (97.5 ?F), resp. rate 17, height 170.2 cm (5' 7 ), weight 117.9 kg (260 lb), SpO2 95 %. General: Well appearing, alert, in no acute distress, well-hydrated, well nourished. and Obese Psychiatric: Mood: open. Affect: appropriate, Alert, oriented x3, E (more content not included)... [facility] CONSULT PROGon 12-21-2020 CONSULT PROG HNO ID: [id number] Author: Obinna Nichols MD Service: General Internal Medicine Author Type: Physician Type: Consult Progress Note Filed: 12/21/2020 3:51 PM Note Text: CONSULT NOTE - INTERNAL MEDICINE PATIENT NAME: Jesus Wolf SERVICE DATE: 12/21/2020 SERVICE TIME: 12:45 PM ADMITTING PHYSICIAN: Jose Lovelace Jr., MD SUBJECTIVE: Patient denies any CP, SOB, Dizziness, Palpitations, Abdominal Pain, Nausea or Vomiting. She is passing flatus, denies any urinary problems Her pain is controlled well, overall feels she is doing much better today. OBJECTIVE PHYSICAL EXAM: Patient Vitals for the past 24 hrs: BP Temp Temp src Pulse Resp SpO2 12/21/20 0814 119/69 36.4 ?C (97.5 ?F) Oral 85 18 95 % 12/21/20 0411 (!) 102/45 36.9 ?C (98.4 ?F) Oral 86 17 98 % 12/21/20 0029 106/52 ? 12/21/20 0002 ? 36.8 ?C (98.2 ?F) Oral 85 16 98 % 12/20/202216 ? ? ? 80 20 93 % 12/20/202211 ? ? ? 80 20 89 % 12/20/202020 97/50 36.5 ?C (97.7 ?F) Oral 81 21 97 % 12/20/20 1603 108/60 36.5 ?C (97.7 ?F) Oral 76 15 93 % 12/20/20 1320 94/67 ? Oral 68 20 88 % Body mass index is 40.72 kg/m?. GENERAL: no distress LUNGS: Lungs clear to auscultation, Fair air entry. CARDIAC: normal S1 and S2; no rubs or gallops ABDOMEN: Abdomen soft, non-tender. BS normal. EXTREMETIES: Normal ankle DF Bilateral Problem List ACTIVE PROBLEM LIST Edema Proteinuria Essential Hypertension Atrial Fibrillation (Hcc) Membranous Glomerulonephritis Vitamin D Deficiency Sle (Systemic Lupus Erythematosus) (Hcc) Fibromyalgia Sleep Apnea Encounter for Long-Term (Current) Use of Other High-Risk Medications Osteoarthritis of ankle and foot HALLUX VALGUS ACQUIRED Other Hammer Toe (Acquired) Enthesopathy of Ankle and Tarsus, Unspecified Lesion of Plantar Nerve Neuralgia, Neuritis, and Radiculitis, Unspecified Foot Pain, Left Other Synovitis and Tenosynovitis, Unspecified Ankle and Foot Osteoarthrosis of Ankle and Foot, Left Synovitis of Left Foot Synovitis of Right Foot Vocal Cord Edema Synovitis of Foot Conjunctivitis Keratopathy Obesity, Class III, BMI >= 40 Hypothyroidism Chronic Congestive Heart Failure (Hcc) Status Post Right Hip Replacement S/P Total Hip Arthroplasty DATA: Diagnostic tests reviewed for today's visit: Most recent labs: CBC, Coags, BMP, Mg, Phos Recent Labs 12/21/20 0307 12/20/20 0315 12/19/20 0305 WBC 10.32 10.90 9.74 HB 9.6* 10.4* 10.7* HCT 30.4* 33.3* 34.4* PLT 154 157 168 NA 130* 131* 137 K 4.6 4.7 4.4 CHLOR 98 98 104 CO2 25 23 24 BUN 15 20 18 CREAT 0.77 1.12* 0.71 GLUC 132* 104* 121* CA 9.6 9.7 9.3 Assessment/Plan: 1. Status post right THR:?She is doing well with increased activities. Pain is controlled well. She feels comfortable with plans for discharge today 2. Ulcerative colitis:? Continue mesalamine 3. SLE:? Continue management as discussed. 4. 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 Chronic atrial fibrillation: Eliquis has been restarted. Heart rate remains in normal range. 6. Hyperlipidemia: Continue atorvastatin. 7. Hypertension, essential: Blood pressure improved 8. Anxiety and depression:?Stable SIGNATURE: Obinna Nichols MD DATE: December 21, 2020 TIME: 12:45 PM This note was partially created using voice recognition software and is inherently subject to errors including those of syntax and sound-alike substitutions which may escape proofreading. In such instances, original meaning may be extrapolated by contextual derivation [facility] NURSING PROGon 12-21-2020 NURSING PROG HNO ID: [id number] Author: Gabbi Chinchilla RN Service: Nursing Author Type: Registered Nurse Type: Nursing Progress Note Filed: 12/21/2020 5:24 AM Note Text: Nursing Progress Note Patient Name: Jesus Wolf Patient Location: [place] [id number] 2200: Pt c/o new onset pain in R Leg inner thigh radiating through foot. 2mg morphine given. HO want's venous duplex performed. No redness. Ortho team paged to see if they would like venous duplex stat or routine. Pt is breathless from pain and Duoneb is ordered and given upon request. 2300: pt sent off unit for haleigh duplex This note was completed by: Gabbi Chinchilla [facility] THERAPY NTon 12-21-2020 THERAPY NT HNO ID: [id number] Author: Jerri Morrow, PT Service: Physical Therapy Author Type: Physical Therapist Type: Therapy (PT/OT/Speech/Resp) Filed: 12/21/2020 12:50 PM Note Text: Physical Therapy Treatment SERVICE DATE: 12/21/2020 SERVICE TIME: 1155 to 1234 ROOM: [place] [address] Recommended Discharge Disposition: Home PT Recommended Discharge Disposition Comments: Anticipate patient to progress to home with HHC, pending progress with stair training. Declining SNF at this time. Anticipated Discharge Needs: Physical Assist at Home Physical Assist at Home for: Laundry;Cleaning;Meals;Sa fety;Self Care;Shopping;Transportat ion Recommended Discharge Equipment: No equipment needs anticipated (pt rpeorting has all needed DME from PT standpoint) PT 6 Clicks Score: 21 Pt with fair tolerance to PT, initially refusing citing pain and fatigue. Pt's present throughout and supportive. Pt requested limited mobility during this session due to pain and fatigue, utilized wheelchair to get down [place] to stairs. Pt did complete stairclimbing with only CGA and present for education/assist as needed. Pt with multiple questions regarding mobility including bed mobility and car transfers, did not seem to recall previous education regarding mobility. All questions answered. Pt and demonstrate good understanding of precautions and appropriate mobility. Recommend home with family assist as needed and home PT. Precautions/Activity Restrictions: Total Hip Replacement;Weight Bearing Restrictions Extremity With Weight Bearing Restricted: Right Lower Extremity Right Lower Extremity Weight Bearing Status: WBAT Total Hip Replacement Precautions: Posterior Current Hospital Course: s/p R THR 12/18/20 Reason for Hospital Admission: R THR Relevant Past Medical History: SLE, fibromyalgia, obesity, Response to Therapy Interventions: Low activity tolerance, Needs frequent redirection or re-instruction, Pain, Requires additional time to complete activities, Requires encouragement to complete activities, Slow progression with functional activities/skills Continue skilled needs due to: Functional mobility/skill impairments Physical Therapy Problem List: Functional Mobility Impairment;Pain Treatment Interventions: Education;Self Care / Home Management;Energy Conservation Training;Joint Mobility;Strengthening;Fu nctional Mobility Training;Balance Training;Neuromuscular Re-education Plan for next visit: Bed mobility, Chair transfer training, Family instruction, Gait training, Exercise instruction/handout, Sit to Stand Transfers, Stairs training, Walker Training Home Environment Patient Lives With: Spouse Assistance Available: 24 Hour Entry To Home: Stairs;With Rail Number Of Stairs Into Home: 3 Number Of Stairs To Bed/Bath: 0- 1 level home Tub/Shower Type: tub/shower combo; with shower bench Laundry: spouse can complete Equipment Owned: Wheeled Walker;Cane;Traffic Supervisor;[place] manjinder Toilet Seat Prior Functional Level: Within Functional Limits Prior Functional Level Comments: pt independent [employer]; 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 Patient Report: initially refusing to do stairs, feeling fatigue, agreed to participate with encouragement CURRENT FUNCTIONAL STATUS: Most recent performance Current Functional Mobility Assist Level Additional Information Rolling Supine to Sit Additional Information pt inquiring re: bed mobility, educated pt and re: safe mobility and adherance to hip precautions for supine <>sit. Encouraged patient to complete HEP to promote LE strength for improved ease of functional mobility. Sit to Supine Minimal Assistance;Additional Information Scooting Supervision;Additional Information Sit to Stand Stand By Assistance Stand to Sit Stand By Assistance Bed to Chair Additional Information Toilet/Commode Supervision Gait Supervision Gait Device: Wheeled Walker Gait Distance (feet): 5'x4 agreed only to ambulate to/from wheelchair for transport to stairs to complete stairclimbing Stairs Contact Guard Assistance Stairs Device: Rail Number of Stairs: 3 present. Pt with improved ability to complete, no buckling noted, safe with use of rails. Pt and report they can have assist to get patient in to home Curb Step Car Transfer Additional Information pt inquiring re: proper car transfer. Pt and educated in appropriate technique/options for getting in and out of car. Discussed seat ht, hip precautions with transfer and safety Blank rivas indicate activity not attempted Gait Deviations Right Lower Extremity: Heel strike during initial stance decreased;Knee stability during stance phase decreased;Lacks hip extension beyond mid-stance;Push off during terminal stance decreased;Stance time decreased;Weight bearing decreased Gait Deviations Left Lower Extremity: Step length decreased General Deviations/Observations: Antalgic gait;Cad (more content not included)... [facility] THERAPY NT HNO ID: [id number] Author: Lesia Garcia OT/L Service: Occupational Therapy Author Type: Occupational Therapist Type: Therapy (PT/OT/Speech/Resp) Filed: 12/21/2020 12:05 PM Note Text: Occupational Therapy Treatment SERVICE DATE: 12/21/2020 SERVICE TIME: 1110 to 1133 ROOM: [id number] Recommended Discharge Disposition: Home OT Recommended Discharge Disposition Comments: Limited due to pain, Pt. will require assist in IADLs/driving, has all DME/AE for d/c Anticipated Discharge Needs: Physical Assist at Home Physical Assist at Home for: Laundry;Cleaning;Meals;Sa fety;Self Care;Shopping;Transportat ion OT 6 Clicks Score: 21 Pt. With extended LOS due to pain and difficulty with functional mobility. Pt. Is now cleared for d/c from OT and pt. Able to teach back/re-call all education. Precautions/Activity Restrictions: Total Hip Replacement;Weight Bearing Restrictions Extremity With Weight Bearing Restricted: Right Lower Extremity Right Lower Extremity Weight Bearing Status: WBAT Total Hip Replacement Precautions: Posterior Current Hospital Course: s/p R THR 12/18/20 Reason for Hospital Admission: R THR Relevant Past Medical History: SLE, fibromyalgia, obesity, Response to Therapy Interventions: Good participation in activities, On-track to achieve discharge goals, Pain, Requires additional time to complete activities Occupational Therapy Problem List: Pain;Safety Deficits;Impaired Self Care;Decreased Strength;Functional Mobility Impairment;Balance Impaired;Decreased Range Of Motion;Decreased Activity Tolerance Treatment Interventions: Education;Self Care / Home Management;Joint Mobility;Strengthening;Ba lexy Training;Functional Mobility Training;Pain Management Home Environment Patient Lives With: Spouse Assistance Available: 24 Hour Entry To Home: Stairs;With Rail Number Of Stairs Into Home: 3 Number Of Stairs To Bed/Bath: 0- 1 level home Tub/Shower Type: tub/shower combo; with shower bench Laundry: spouse can complete Equipment Owned: Wheeled Walker;Cane;Traffic Supervisor;[place] manjinder Toilet Seat Prior Functional Level: Within Functional Limits Prior Functional Level Comments: pt independent [employer]; 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 CURRENT FUNCTIONAL STATUS: Most recent performance Current Activities of Daily Living Assist Level Additional Information Feeding Independent Grooming Independent Bathing Upper Body Set Up Bathing Lower Body Minimal Assistance Dressing Upper Body Set Up Dressing Lower Body Minimal Assistance Toileting Contact Guard Assistance Instrumental Activities of Daily Living Assist Level Additional Information Meal/Beverage Prep Cleaning Laundry Medication Management with Strategies Functional Mobility Assist Level Additional Information Rolling Supine to Sit Minimal Assistance Sit to Supine Minimal Assistance (for BLE) Scooting Supervision Sit to Stand Contact Guard Assistance Stand to Sit Contact Guard Assistance Bed to Chair Contact Guard Assistance Wheeled Walker Toilet/Commode Shower Functional Mobility Contact Guard Assistance Wheeled Walker Blank rivas indicate activity not attempted Learning/Educational Needs: Discharge Plan;Functional Activities/Mobility;Plan of Care;Precautions;Rehabili tation Techniques and Procedures;Safety;Self Care;Pain Management;Equipment Goals for Plan of Care: Patient /Caregiver Goals: Go Home;Care For Self;Walk Goals: Patient will demonstrate progress with self-care, cognitive and/or coping needs identified to allow safe discharge to home with available support and/or physical assistance. Progress Toward Goals: Progressing as expected Rehab Potential: Good Patient will be discontinued from Occupational Therapy when no further skilled needs are identified in this setting. PLAN: Treatment Frequency (times per week): 2 Current admission Plan of Care developed with: Patient TREATMENT INTERVENTIONS: Therapy Diagnosis: Decreased activities of daily living (ADL);Muscle Weakness (generalized) Interventions Provided: Self Senior Living Management (66480);Therapeutic Activity (67229) Therapeutic Activity (27364) Treatment Minutes: 8 $ Therapeutic Activity (45418) Billed Units: 1 unit Self Senior Living Management (30169) Treatment Minutes: 15 $ Self Senior Living Management (95748) Billed Units: 1 unit Training AND education provided in: Activity adaption / compensatory strategies, Adaptive equipment / DME, Bed mobility, Assistive device use, Benefits of in-hospital mobility, Discharge planning, Expected functional level, Lower extremity dressing, Functional mobility involving ADL's, Pain management, Precautions/restrictions, Positioning, Role of Occupational Therapy, Sitting balance to improve independence with ADLs/self-care, Standing balance to improve independence with ADLs/self-care, Transfer - Bed to chair, Transfer - Sit to stand The following therapeutic skills were used (more content not included)... [facility] DVT LOWER BILon 1 DVT LOWER JEANIE * * *Final Report* * * DATE OF EXAM: Dec 20 2020 11:51PM [facility] 1005 - DVT LOWER JEANIE / PROCEDURE REASON: Hip replaced, post op DVT screen * * * * Physician Interpretation * * * * EXAMINATION: RIGHT AND LEFT LOWER EXTREMITY DEEP VENOUS ULTRASOUND WITH DOPPLER IMAGING CLINICAL HISTORY: Lower extremity swelling TECHNIQUE: Grayscale with compression maneuvers, color Doppler and spectral Doppler at rest and with augmentation of the right and left distal external iliac, common femoral, femoral and popliteal veins was performed. Grayscale with compression maneuvers of the right and left peroneal and posterior tibial veins was also performed. The right and left great and small saphenous veins were also imaged in grayscale with compression maneuvers at their insertion to the deep system. Images were obtained and stored in a permanent archive. MQ: [id number] COMPARISON: None RESULT: RIGHT LOWER EXTREMITY PROXIMAL DEEP VEINS Distal External Iliac and Common Femoral Veins: Compression: Normal Doppler: Normal, spontaneous respirophasic flow. Normal response to augmentation. Femoral vein: Compression: Normal Doppler: Normal, spontaneous respirophasic flow. Normal response to augmentation. Popliteal vein: Compression: Normal Doppler: Normal, spontaneous respirophasic flow. Normal response to augmentation. CALF DEEP VEINS Peroneal veins: Not identified. Posterior tibial veins: Not identified. Gastrocnemius and Soleal veins: Not imaged. SUPERFICIAL VEINS Great saphenous: Patent and compressible at insertion into common femoral vein; not otherwise assessed. Small Saphenous: Patent and compressible in the proximal calf, not otherwise assessed. LEFT LOWER EXTREMITY PROXIMAL DEEP VEINS Distal External Iliac and Common Femoral Veins: Compression: Normal Doppler: Normal, spontaneous respirophasic flow. Normal response to augmentation. Femoral vein: Compression: Normal Doppler: Normal, spontaneous respirophasic flow. Normal response to augmentation. Popliteal vein: Compression: Normal Doppler: Normal, spontaneous respirophasic flow. Normal response to augmentation. CALF DEEP VEINS Peroneal veins: Not identified. Posterior tibial veins: Not identified. Gastrocnemius and Soleal veins: Not imaged. SUPERFICIAL VEINS Great saphenous: Patent and compressible at insertion into common femoral vein; not otherwise assessed. Small Saphenous: Patent and compressible in the proximal calf, not otherwise assessed. IMPRESSION: No acute bilateral lower extremity DVT Rn Documentation: MILLER Transcribe Date/Time: Dec 21 2020 12:31A Dictated by : MADELYN EM MD This examination was interpreted and the report reviewed and electronically signed by: MADELYN EM MD on Dec 21 2020 12:32AM EST [id number] [facility] Basic Metabolic Panlon 12-20 Anion gap [Moles/Vol] 10 mmol/L Normal -18 [facility] Comment on above: Performed By: #### C , BMP ####[address] Calcium [Mass/Vol] 9.7 mg/dL Normal 8.5-10.2 [facility] Comment on above: Performed By: #### C BC, BMP ####[address] Chloride [Moles/Vol] 98 mmol/L Normal 97-105 [facility] Comment on above: Performed By: #### C BC, BMP ####[address] CO2 [Moles/Vol] 23 mmol/L Normal 22-30 [facility] Comment on above: Performed By: #### C BC, BMP ####[address] Creatinine [Mass/Vol] 1.12 mg/dL High 0.58-0.96 [facility] Comment on above: Performed By: #### C BC, BMP ####[address] eGFR- Amer. 59 Low >60 [facility] Comment on above: Performed By: #### C BC, BMP ####[address] eGFR-All Other Races 49 . Low >60 [facility] Comment on above: Result Comment: eGFR (Estimated GFR) Units of measure: mL/min/1.73 meters squared eGFR is derived from the reexpressed MDRD Study equation using the following parameters: serum creatinine, age, gender and race. The creatinine assay has been calibrated to be traceable to IDMS. An eGFR <60 mL/min/1.73m2 for >3 months is consistent with chronic kidney disease. Refer to KDOQI guidelines for clinical interpretation. In patients with unstable renal function, e.g. those with acute kidney injury, the eGFR may not accurately reflect actual GFR. Performed By: #### C BC, BMP ####[address] Glucose [Mass/Vol] 104 mg/dL High 74-99 [facility] Comment on above: Performed By: #### C BC, BMP ####[place] [address] [phone] Potassium [Moles/Vol] 4.7 mmol/L Normal 3.7-5.1 [facility] Comment on above: Performed By: #### C BC, BMP ####[place] [address] [place] [phone] Sodium [Moles/Vol] 131 mmol/L Low 136-144 [facility] Comment on above: Performed By: #### C BC, BMP ####[place] [address] [place] [phone] Urea nitrogen [Mass/Vol] 20 mg/dL Normal 7-21 [facility] Comment on above: Performed By: #### C BC, BMP ####[place] [address] [phone] CASE MANAGEMon 12-20-2020 CASE MANAGEM HNO ID: [id number] Author: Palak Mcmillan Service: ? Author Type: [employer] Communications Engineer Type: Care Mgt Progress Note Filed: 12/20/2020 10:27 AM Note Text: CARE MANAGEMENT PROGRESS NOTE SERVICE DATE: 12/20/2020 SERVICE TIME: 10:00Am LOS: 0 days IMM Follow Up Copy Given: Yes Copy given to:: Patient Method: In Person Jesus is aware of IMM right SIGNATURE: Palak Mcmillan PATIENT NAME: Jesus Wolf DATE: December 20, 2020 TIME: 10:25 AM PAGER/CONTACT #: [phone] Normal [facility] CBCon 12-20-2020 Absolute nRBC <0.01 Normal <0.01 [facility] Comment on above: Performed By: #### C BC, BMP ####[place] [address] [phone] Erythrocyte distribution width (RBC) [Ratio] 14.2 % Normal 11.5-15.0 [facility] Comment on above: Performed By: #### C BC, BMP ####[address] Hematocrit (Bld) [Volume fraction] 33.3 % Low 36.0-46.0 [facility] Comment on above: Performed By: #### C JACKIE, BMP ####[address] Hemoglobin (Bld) [Mass/Vol] 10.4 g/dL Low 11.5-15.5 [facility] Comment on above: Performed By: #### C JACKIE, BMP ####[address] MCH 31.1 pG Normal 26.0-34.0 [facility] Comment on above: Performed By: #### C JACKIE, BMP ####[address] MCHC (RBC) [Mass/Vol] 31.2 g/dL Normal 30.5-36.0 [facility] Comment on above: Performed By: #### C JACKIE, BMP ####[address] MCV (RBC) [Entitic vol] 99.7 fL Normal 80.0-100.0 [facility] Comment on above: Performed By: #### C JACKIE, BMP ####[address] Platelet mean volume (Bld) [Entitic vol] 10.8 fL Normal 9.0-12.7 [facility] Comment on above: Performed By: #### C JACKIE, BMP ####[address] Platelets (Bld) [#/Vol] 157 10*3/uL Normal 150-400 [facility] Comment on above: Performed By: #### C JACKIE, BMP ####[address] RBC (Bld) [#/Vol] 3.34 10*6/uL Low 3.90-5.20 [facility] Comment on above: Performed By: #### C BC, BMP ####[facility] [phone] WBC (Bld) [#/Vol] 10.90 10*3/uL Normal 3.70-11.00 [facility] Comment on above: Performed By: #### C BC, BMP ####[facility] [phone] CONSULT PROGon 12-20-2020 CONSULT PROG HNO ID: [id number] Author: Obinna Nichols MD Service: General Internal Medicine Author Type: Physician Type: Consult Progress Note Filed: 12/20/2020 1:22 PM Note Text: CONSULT NOTE - INTERNAL MEDICINE PATIENT NAME: Jesus Wolf SERVICE DATE: 12/20/2020 SERVICE TIME: 12:20 PM ADMITTING PHYSICIAN: Jose Lovelace Jr., MD SUBJECTIVE: Patient denies any CP, SOB, Dizziness, Palpitations, Abdominal Pain or Vomiting. Patient feels she was doing well but started having nausea after getting oxycodone. Earlier was noted to be confused by family member also. As per the patient she does not tolerate oxycodone very well, has had problems with hallucinations and confusion in the past also with oxycodone. She is passing flatus, denies any urinary problems Her pain is controlled well OBJECTIVE PHYSICAL EXAM: Patient Vitals for the past 24 hrs: BP Temp Temp src Pulse Resp SpO2 12/20/20 0519 99/62 36.8 ?C (98.2 ?F) Oral 74 14 92 % 12/20/20 0025 ? 16 ? 12/19/202044 ? 18 ? 12/19/202022 92/50 ? 12/19/202014 (!) 85/49 36.7 ?C (98.1 ?F) Oral 78 18 96 % 12/19/202003 (!) 91/39 36.9 ?C (98.4 ?F) Oral 75 13 88 % 12/19/20 1327 109/51 ? ? 71 16 93 % Body mass index is 40.72 kg/m?. GENERAL: no distress LUNGS: Lungs clear to auscultation, Fair air entry. CARDIAC: normal S1 and S2; no rubs or gallops ABDOMEN: Abdomen soft, non-tender. BS normal. EXTREMETIES: Normal ankle DF Bilateral Problem List ACTIVE PROBLEM LIST Edema Proteinuria Essential Hypertension Atrial Fibrillation (Hcc) Membranous Glomerulonephritis Vitamin D Deficiency Sle (Systemic Lupus Erythematosus) (Hcc) Fibromyalgia Sleep Apnea Encounter for Long-Term (Current) Use of Other High-Risk Medications Osteoarthritis of ankle and foot HALLUX VALGUS ACQUIRED Other Hammer Toe (Acquired) Enthesopathy of Ankle and Tarsus, Unspecified Lesion of Plantar Nerve Neuralgia, Neuritis, and Radiculitis, Unspecified Foot Pain, Left Other Synovitis and Tenosynovitis, Unspecified Ankle and Foot Osteoarthrosis of Ankle and Foot, Left Synovitis of Left Foot Synovitis of Right Foot Vocal Cord Edema Synovitis of Foot Conjunctivitis Keratopathy Obesity, Class III, BMI >= 40 Hypothyroidism Chronic Congestive Heart Failure (Hcc) Status Post Right Hip Replacement DATA: Diagnostic tests reviewed for today's visit: Most recent labs: CBC, Coags, BMP, Mg, Phos Recent Labs 12/20/20 0315 12/19/20 0305 12/18/20 1318 WBC 10.90 9.74 8.22 HB 10.4* 10.7* 12.1 HCT 33.3* 34.4* 38.2 PLT 157 168 177 NA 131* 137 141 K 4.7 4.4 4.2 CHLOR 98 104 110* CO2 23 24 23 BUN 20 18 12 CREAT 1.12* 0.71 0.72 GLUC 104* 121* 104* CA 9.7 9.3 9.2 Assessment/Plan: 1. Status post right THR: Physical therapy to reevaluate. Patient is gradually improving with activities. 2. Ulcerative colitis: Remained stable with mesalamine 3. SLE: Continue management as discussed. 4. Lupus nephritis: Continue CellCept. Discussed with patient again regarding her regimen. As per the patient she was advised by her tender coordinator to hold CellCept for 1 week prior to surgery and resume after the surgery was done. 5. Chronic atrial fibrillation: Eliquis has been restarted. Heart rate remains under good control. 6. Hyperlipidemia: Continue atorvastatin. 7. Hypertension, essential: Blood pressure is decreased, will continue with current parameters 8. Anxiety and depression: Stable SIGNATURE: Obinna Nichols MD DATE: December 20, 2020 TIME: 12:20 PM This note was partially created using voice recognition software and is inherently subject to errors including those of syntax and sound-alike substitutions which may escape proofreading. In such instances, original meaning may be extrapolated by contextual derivation [facility] NURSING PROGon 12-20-2020 NURSING PROG HNO ID: [id number] Author: Court Bullock RN Service: ? Author Type: Registered Nurse Type: Nursing Progress Note Filed: 12/20/2020 6:49 PM Note Text: Nursing Progress Note Patient Name: Jesus Wolf Patient Location: [facility]/[id number] IV, recently put in by Communications Editor under US, infiltrated. Communications Editor text paged at this time to attempt IV with US again. This note was completed by: Court Bullock [facility] NURSING PROG O ID: [id number] Author: Court Bullock RN Service: ? Author Type: Registered Nurse Type: Nursing Progress Note Filed: 12/20/2020 5:43 PM Note Text: Nursing Progress Note Patient Name: Jesus Wolf Patient Location: [address]/[id number] Assumed care of patient at 1500. Patient appears comfortable, awake and resting in bed at this time with at the bedside. Patient is alert and oriented x 3. Most recent set of vital signs stable. Telemetry applied per order. Patient in NSR. Pedal push/pulls strong and equal bilaterally. Sensation intact. Aquacel dressing to the right hip clean, dry and intact. Patient states all needs met at this time. Call light within reach. Will continue to monitor. This note was completed by: Court Bullock [facility] THERAPY NTon 12-20-2020 THERAPY NT HNO ID: [id number] Author: Kirsty Cobb DPT Service: Physical Therapy Author Type: Physical Therapist Type: Therapy (PT/OT/Speech/Resp) Filed: 12/20/2020 3:24 PM Note Text: Physical Therapy Treatment SERVICE DATE: 12/20/2020 SERVICE TIME: 1347 to 1444 ROOM: [place] [address] Recommended Discharge Disposition: Home PT Recommended Discharge Disposition Comments: Anticipate patient to progress to home with C, pending progress with stair training. Declining SNF at this time. Anticipated Discharge Needs: Physical Assist at Home Physical Assist at Home for: Laundry;Cleaning;Meals;Sa fety;Self Care;Shopping;Transportat ion Recommended Discharge Equipment: No equipment needs anticipated (pt rpeorting has all needed DME from PT standpoint) PT 6 Clicks Score: 21 Patient able to progress ambulation distance this date; however, continues to fatigue easily and report nausea with all movement. Spent majority of session initiating stair training with patient and her . Currently requires modA x2 and one standing rest break at top of stairs due to fatigue and report of lightheadedness. Patient became extremely nauseous and began dry heaving after first round of stair training. RN notified and further mobility was deferred. Discussed discharge plans (home vs. SNF) and patient currently declining SNF at this time. Recommend one more night's stay for continued mobility with nursing and additional PT session tomorrow for mobility/stair training. Precautions/Activity Restrictions: Total Hip Replacement;Weight Bearing Restrictions Extremity With Weight Bearing Restricted: Right Lower Extremity Right Lower Extremity Weight Bearing Status: WBAT Total Hip Replacement Precautions: Posterior Current Hospital Course: s/p R THR 12/18/20 Reason for Hospital Admission: R THR Relevant Past Medical History: SLE, fibromyalgia, obesity, Response to Therapy Interventions: Low activity tolerance, Needs frequent redirection or re-instruction, Pain, Requires additional time to complete activities, Requires encouragement to complete activities, Slow progression with functional activities/skills Continue skilled needs due to: Functional mobility/skill impairments Physical Therapy Problem List: Functional Mobility Impairment;Pain Treatment Interventions: Education;Self Care / Home Management;Energy Conservation Training;Joint Mobility;Strengthening;Fu nctional Mobility Training;Balance Training;Neuromuscular Re-education Plan for next visit: Bed mobility, Chair transfer training, Family instruction, Gait training, Exercise instruction/handout, Sit to Stand Transfers, Stairs training, Walker Training Home Environment Patient Lives With: Spouse Assistance Available: 24 Hour Entry To Home: Stairs;With Rail Number Of Stairs Into Home: 3 Number Of Stairs To Bed/Bath: 0- 1 level home Tub/Shower Type: tub/shower combo; with shower bench Laundry: spouse can complete Equipment Owned: Wheeled Walker;Cane;Traffic Supervisor;[place] manjinder Toilet Seat Prior Functional Level: Within Functional Limits Prior Functional Level Comments: pt independent [employer]; 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 Patient Report: Patient continues to complain of nausea. States I've been nauseous all day. Also reports she does not tolerate pain meds well. CURRENT FUNCTIONAL STATUS: Most recent performance Current Functional Mobility Assist Level Additional Information Rolling Supine to Sit Stand By Assistance Sit to Supine Minimal Assistance;Additional Information to lift RLE and maintain precautions Scooting Supervision;Additional Information inc. time/effort, cues for technique, requires bedrails Sit to Stand Stand By Assistance Stand to Sit Stand By Assistance Bed to Chair Additional Information Toilet/Commode Supervision Gait Contact Guard Assistance;Stand By Assistance Gait Device: Wheeled Walker Gait Distance (feet): 70' Stairs Moderate Assistance;Additional Information Stairs Device: Rail;Cane Number of Stairs: 3 x2 persons, cues to activate quads to prevent knee buckling, standing rest break at top of stairs, unable to perform second trial due to nausea/dry heaving Curb Step Car Transfer Blank rivas indicate activity not attempted Gait Deviations Right Lower Extremity: Heel strike during initial stance decreased;Knee stability during stance phase decreased;Lacks hip extension beyond mid-stance;Push off during terminal stance decreased;Stance time decreased;Weight bearing decreased Gait Deviations Left Lower Extremity: Step length decreased General Deviations/Observations: Antalgic gait;Neeta decreased;Flexed trunk posture;Lateral sway increased;UE weight bearing on assistive device excessive;Improper distancing from assistive device -[facility]: 7: Walk 25 feet or more Learning/Educational Needs: Discharge Plan;Equipment;Family Education/Training;Functi onal Activities/Mobility;Plan of Care;Changes in Larry (more content not included)... Normal [facility] Basic Metabolic Panlon 12-19 Anion gap [Moles/Vol] 9 mmol/L Normal 9-18 [facility] Comment on above: Performed By: #### B MP, CBC ####[address] Calcium [Mass/Vol] 9.3 mg/dL Normal 8.5-10.2 [facility] Comment on above: Performed By: #### B MP, CBC ####[place] [phone] Chloride [Moles/Vol] 104 mmol/L Normal 97-105 [facility] Comment on above: Performed By: #### B MP, CBC ####[address] CO2 [Moles/Vol] 24 mmol/L Normal 22-30 [facility] Comment on above: Performed By: #### B MP, CBC ####[address] Creatinine [Mass/Vol] 0.71 mg/dL Normal 0.58-0.96 [facility] Comment on above: Performed By: #### B MP, CBC ####[address] eGFR- Amer. >60 Normal >60 [facility] Comment on above: Performed By: #### B MP, CBC ####[address] eGFR-All Other Races >60 Normal >60 [facility] Comment on above: Result Comment: eGFR (Estimated GFR) Units of measure: mL/min/1.73 meters squared eGFR is derived from the reexpressed MDRD Study equation using the following parameters: serum creatinine, age, gender and race. The creatinine assay has been calibrated to be traceable to IDMS. An eGFR <60 mL/min/1.73m2 for >3 months is consistent with chronic kidney disease. Refer to KDOQI guidelines for clinical interpretation. In patients with unstable renal function, e.g. those with acute kidney injury, the eGFR may not accurately reflect actual GFR. Performed By: #### B MP, CBC ####[place] [phone] Glucose [Mass/Vol] 121 mg/dL High 74-99 [facility] Comment on above: Performed By: #### B MP, CBC ####[place] [address] [place] [phone] Potassium [Moles/Vol] 4.4 mmol/L Normal 3.7-5.1 [facility] Comment on above: Performed By: #### B MP, CBC ####[place] [address] [place] [phone] Sodium [Moles/Vol] 137 mmol/L Normal 136-144 [facility] Comment on above: Performed By: #### B MP, CBC ####[place] [phone] Urea nitrogen [Mass/Vol] 18 mg/dL Normal 7-21 [facility] Comment on above: Performed By: #### B MP, CBC ####[place] [phone] CASE MANAGEMon 12-19-2020 CASE MANAGEM HNO ID: [id number] Author: Joslyn Booker RN Service: ? Author Type: Registered Nurse Type: Care Mgt Progress Note Filed: 12/19/2020 3:36 PM Note Text: CARE MANAGEMENT PROGRESS NOTE SERVICE DATE: 12/19/2020 SERVICE TIME: 1535 LOS: 0 days Patient having nausea, no discharge today. SIGNATURE: Joslyn Booker RN PATIENT NAME: Jesus Wolf DATE: December 19, 2020 TIME: 3:35 PM PAGER/CONTACT #: [phone] [facility] CASE MGT INIT [facility] 2020 CASE MGT INIT ASS HNO ID: [id number] Author: Joslyn Booker RN Service: ? Author Type: Registered Nurse Type: Care Mgt Initial Assessment Filed: 12/19/2020 4:42 PM Note Text: CARE MANAGEMENT PROGRESS NOTE SERVICE DATE: 12/19/2020 SERVICE TIME: 1015 LOS: 0 days Admission Date: 12/18/2020 DISCHARGE ARRANGEMENT (list agency and phone number) Discharge Arrangement: Home;Home Senior Living Care: PT;OT Provider Name AND Phone: See Below CAREGIVER ASSESSMENT: Caregiver is ready, willing and able to meet the patient's needs as recommended by the inter-professional team:: Yes Does the patient have an acute stroke diagnosis, or has the patient had a stroke during this admission?: No HANDOFF COMMUNICATION: Handoff to: Primary Care Physician TRANSPORTATION ARRANGEMENTS: Transportation Arrangements: Car ADDITIONAL CONTACT RESOURCES: summary of care [place] of Choice Given: Yes Level of Care Discussed: Home Care Financial Disclosure Provided: Yes Financial Disclosure Comments: [facility] affiliate Provider list within the patient's requested geographic area shared with the patient/family: No Quality and resource use metrics shared with the patient that are relevant to the patient's goals of care and treatment preferences:: Yes Metrics: Functional Status;Potentially Preventable 30-day Post Discharge Readmission Rates Caregiver is ready, willing and able to meet the patient's needs as recommended by the inter-professional team:: Yes Does the patient have an acute stroke diagnosis, or has the patient had a stroke during this admission?: No Needs Prior to Discharge: OT/PT Evaluation;Facility or Agency Choices;Discharge Prescriptions;Accepting Facility Current Advance Directive: None Medical Microbiologist Attempted to Assist with AD Completion: Yes Action: Education Provided Patient assessed at this time. She lives with her and he will be transporting home. She has all DME (walker). [facility] referral placed with [facility]'s. Plan is to discharge home today when all goals are met. Scripts sent to [facility]. She has no other needs. SIGNATURE: Joslyn Booker RN PATIENT NAME: Jesus Wolf DATE: December 19, 2020 TIME: 11:39 AM PAGER/CONTACT #: [phone] Normal [facility] CBCon 12-19-2020 Absolute nRBC <0.01 Normal <0.01 [facility] Comment on above: Performed By: #### B MP, CBC ####[place] [id number] Erythrocyte distribution width (RBC) [Ratio] 14.3 % Normal 11.5-15.0 [facility] Comment on above: Performed By: #### B MP, CBC ####[place] [id number] Hematocrit (Bld) [Volume fraction] 34.4 % Low 36.0-46.0 [facility] Comment on above: Performed By: #### B MP, CBC ####[place] [id number] Hemoglobin (Bld) [Mass/Vol] 10.7 g/dL Low 11.5-15.5 [facility] Comment on above: Performed By: #### B MP, CBC ####[place] [id number] MCH 30.7 pG Normal 26.0-34.0 [facility] Comment on above: Performed By: #### B MP, CBC ####[place] [id number] MCHC (RBC) [Mass/Vol] 31.1 g/dL Normal 30.5-36.0 [facility] Comment on above: Performed By: #### B MP, CBC ####[place] [id number] MCV (RBC) [Entitic vol] 98.9 fL Normal 80.0-100.0 [facility] Comment on above: Performed By: #### B MP, CBC ####[place] [id number] Platelet mean volume (Bld) [Entitic vol] 10.7 fL Normal 9.0-12.7 [facility] Comment on above: Performed By: #### B MP, CBC ####[address] Platelets (Bld) [#/Vol] 168 10*3/uL Normal 150-400 [facility] Comment on above: Performed By: #### B MP, CBC ####[facility] RBC (Bld) [#/Vol] 3.48 10*6/uL Low 3.90-5.20 [facility] Comment on above: Performed By: #### B MP, CBC ####[facility] WBC (Bld) [#/Vol] 9.74 10*3/uL Normal 3.70-11.00 [facility] Comment on above: Performed By: #### B MP, CBC ####[facility] CONSULT PROGon 12-19-2020 CONSULT PROG HNO ID: [id number] Author: Obinna Nichols MD Service: General Internal Medicine Author Type: Physician Type: Consult Progress Note Filed: 12/19/2020 7:05 PM Note Text: CONSULT NOTE - INTERNAL MEDICINE PATIENT NAME: Jesus Wolf SERVICE DATE: 12/19/2020 SERVICE TIME: 12:36 PM ADMITTING PHYSICIAN: Jose Lovelace Jr., MD SUBJECTIVE: Patient denies any CP, SOB, Dizziness, Palpitations, Abdominal Pain. Patient complains of having some nausea. She is passing flatus, denies any urinary problems Her pain is controlled well OBJECTIVE PHYSICAL EXAM: Patient Vitals for the past 24 hrs: BP Temp Temp src Pulse Resp SpO2 Height Weight 12/19/20 0832 (!) 97/48 36.7 ?C (98.1 ?F) Oral 69 18 97 % ? ? 12/19/20 0828 (!) 103/36 36.7 ?C (98.1 ?F) ? 69 ? 93 % ? ? 12/19/20 0533 116/58 37 ?C (98.6 ?F) Oral 71 14 96 % ? ? 12/19/20 0025 ? 18 ? ? ? 12/19/20 0015 107/53 36.8 ?C (98.2 ?F) Oral 71 18 99 % ? ? 12/18/20 2004 112/50 36.7 ?C (98.1 ?F) Oral 70 18 97 % ? ? 12/18/20 1604 101/50 36.4 ?C (97.5 ?F) Oral 64 18 99 % ? ? 12/18/20 1436 ? ? ? (!) 55 ? 98 % ? ? 12/18/20 1412 ? 170.2 cm (5' 7 ) 117.9 kg (260 lb) 12/18/20 1407 128/57 ? Oral (!) 57 16 96 % ? ? 12/18/20 1345 136/71 ? ? (!) 58 ? 89 % ? ? 12/18/20 1330 133/78 ? ? (!) 56 15 97 % ? ? 12/18/20 1325 145/63 36 ?C (96.8 ?F) Temporal (!) 56 14 92 % ? ? 12/18/20 1315 ? ? ? 65 15 96 % ? ? 12/18/20 1300 134/60 ? ? 61 14 100 % ? ? 12/18/20 1245 131/79 ? ? 62 14 100 % ? ? Body mass index is 40.72 kg/m?. GENERAL: no distress LUNGS: Lungs clear to auscultation, Fair air entry. CARDIAC: normal S1 and S2; no rubs or gallops ABDOMEN: Abdomen soft, non-tender. BS normal. EXTREMETIES: Normal ankle DF Bilateral Problem List ACTIVE PROBLEM LIST Edema Proteinuria Essential Hypertension Atrial Fibrillation (Hcc) Membranous Glomerulonephritis Vitamin D Deficiency Sle (Systemic Lupus Erythematosus) (Hcc) Fibromyalgia Sleep Apnea Encounter for Long-Term (Current) Use of Other High-Risk Medications Osteoarthritis of ankle and foot HALLUX VALGUS ACQUIRED Other Hammer Toe (Acquired) Enthesopathy of Ankle and Tarsus, Unspecified Lesion of Plantar Nerve Neuralgia, Neuritis, and Radiculitis, Unspecified Foot Pain, Left Other Synovitis and Tenosynovitis, Unspecified Ankle and Foot Osteoarthrosis of Ankle and Foot, Left Synovitis of Left Foot Synovitis of Right Foot Vocal Cord Edema Synovitis of Foot Conjunctivitis Keratopathy Obesity, Class III, BMI >= 40 Hypothyroidism Chronic Congestive Heart Failure (Hcc) Status Post Right Hip Replacement DATA: Diagnostic tests reviewed for today's visit: Most recent labs: CBC, Coags, BMP, Mg, Phos Recent Labs 12/19/20 0305 12/18/20 1318 WBC 9.74 8.22 HB 10.7* 12.1 HCT 34.4* 38.2 PLT 168 177 NA 137 141 K 4.4 4.2 CHLOR 104 110* CO2 24 23 BUN 18 12 CREAT 0.71 0.72 GLUC 121* 104* CA 9.3 9.2 Assessment/Plan: 1. Status post right THR: Patient is gradually progressing with therapy. Pain is controlled well. 2. Ulcerative colitis: Continue mesalamine, denies any new symptoms 3. SLE: As noted patient is on treatment with Benlysta and prednisone every 3 months. Last dose was in September 2020 and she is planning to have next dose in March 2021. 4. Lupus nephritis: Continue CellCept. 5. Chronic atrial fibrillation: Heart rate is controlled well. Cleared by Ortho for restarting Eliquis. 6. Hyperlipidemia: Continue atorvastatin. 7. Hypertension, essential: Continue present medications with parameters as ordered. 8. Anxiety and depression: Stable SIGNATURE: Obinna Nichols MD DATE: December 19, 2020 TIME: 12:36 PM This note was partially created using voice recognition software and is inherently subject to errors including those of syntax and sound-alike substitutions which may escape proofreading. In such instances, original meaning may be extrapolated by contextual derivation [facility] THERAPY [facility] 12-19-2020 THERAPY NT HNO ID: [id number] Author: Ivania Hampton PT Service: Physical Therapy Author Type: Physical Therapist Type: Therapy (PT/OT/Speech/Resp) Filed: 12/19/2020 2:36 PM Note Text: PHYSICAL THERAPY MISSED VISIT SERVICE DATE: 12/19/2020 SERVICE TIME: 1431 to 143 ROOM: [place] [address] Attempted Treatment. Patient not seen due to Illness. Pt experiencing illness with OT; pt now in deep sleep. RN reporting pt to stay overnight for monitoring. Will check back later as schedule permits. SIGNATURE: Ivania Hampton PT PATIENT NAME: Jesus Wolf DATE: December 19, 2020 TIME: 2:35 PM [facility] THERAPY NT HNO ID: [id number] Author: Lesia Garcia OT/L Service: Occupational Therapy Author Type: Occupational Therapist Type: Therapy (PT/OT/Speech/Resp) Filed: 12/19/2020 2:28 PM Note Text: Occupational Therapy Evaluation SERVICE DATE: 12/19/2020 SERVICE TIME: 1257 to 1324 ROOM: [id number] Recommended Discharge Disposition: Home OT Recommended Discharge Disposition Comments: Limited due to pain, Pt. will require assist in IADLs/driving, has all DME/AE for d/c Anticipated Discharge Needs: Physical Assist at Home Physical Assist at Home for: Laundry;Cleaning;Meals;Sa fety;Self Care;Shopping;Transportat ion OT 6 Clicks Score: 21 Pt. Is cleared for d/c from OT standpoint. Pt. Will require assist in IADLs/driving, has all DME/AE for d/c. Pt. May stay another night due for pain management. Precautions/Activity Restrictions: Total Hip Replacement;Weight Bearing Restrictions Extremity With Weight Bearing Restricted: Right Lower Extremity Right Lower Extremity Weight Bearing Status: WBAT Total Hip Replacement Precautions: Posterior Current Hospital Course: s/p R THR 12/18/20 Reason for Hospital Admission: R THR Relevant Past Medical History: SLE, fibromyalgia, obesity, Response to Therapy Interventions: Good participation in activities, On-track to achieve discharge goals, Pain Continue skilled needs due to: Functional impairment (met in house goals) Occupational Therapy Problem List: Pain;Safety Deficits;Impaired Self Care;Decreased Strength;Functional Mobility Impairment;Balance Impaired;Decreased Range Of Motion;Decreased Activity Tolerance Treatment Interventions: Education;Self Care / Home Management;Joint Mobility;Strengthening;Ba lexy Training;Functional Mobility Training;Pain Management Plan for next visit: Toileting instruction, Chair/commode transfer training, Sit to stand transfers, Standing tolerance, Pain management Home Environment Patient Lives With: Spouse Assistance Available: 24 Hour Entry To Home: Stairs;With Rail Number Of Stairs Into Home: 3 Number Of Stairs To Bed/Bath: 0- 1 level home Tub/Shower Type: tub/shower combo; with shower bench Laundry: spouse can complete Equipment Owned: Wheeled Walker;Cane;Traffic Supervisor;[place] manjinder Toilet Seat Prior Functional Level: Within Functional Limits Prior Functional Level Comments: pt independent [employer]; 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 Patient Report: I am just so tired. CURRENT FUNCTIONAL STATUS: Most recent performance Current Activities of Daily Living Assist Level Additional Information Feeding Independent Grooming Independent Bathing Upper Body Set Up Bathing Lower Body Minimal Assistance Dressing Upper Body Set Up Dressing Lower Body Contact Guard Assistance Toileting Contact Guard Assistance Instrumental Activities of Daily Living Assist Level Additional Information Meal/Beverage Prep Cleaning Laundry Medication Management with Strategies Functional Mobility Assist Level Additional Information Rolling Supine to Sit Minimal Assistance Sit to Supine Minimal Assistance (for BLE) Scooting Supervision Sit to Stand Contact Guard Assistance Stand to Sit Contact Guard Assistance Bed to Chair Toilet/Commode Shower Functional Mobility Contact Guard Assistance Wheeled Walker Blank rivas indicate activity not attempted Learning/Educational Needs: Discharge Plan;Functional Activities/Mobility;Plan of Care;Precautions;Rehabili tation Techniques and Procedures;Safety;Self Care;Pain Management;Family Education/Training Goals for Plan of Care: Patient /Caregiver Goals: Go Home;Care For Self;Walk Goals: Patient will demonstrate progress with self-care, cognitive and/or coping needs identified to allow safe discharge to home with available support and/or physical assistance. Progress Toward Goals: Progressing as expected Rehab Potential: Good Patient will be discontinued from Occupational Therapy when no further skilled needs are identified in this setting. PLAN: Treatment Frequency (times per week): 1 Current admission Plan of Care developed with: Patient TREATMENT INTERVENTIONS: Therapy Diagnosis: Decreased activities of daily living (ADL);Muscle Weakness (generalized) Interventions Provided: Evaluation;Self Senior Living Management (75252) $ Evaluation-Moderate (25147) Billed Units: 1 unit Self Senior Living Management (35143) Treatment Minutes: 12 $ Self Senior Living Management (15056) Billed Units: 1 unit Training AND education provided in: Activity adaption / compensatory strategies, Adaptive equipment / DME, Assistive device use, Bed mobility, Benefits of in-hospital mobility, Discharge planning, Expected functional level, Functional mobility involving ADL's, Lower extremity dressing, Pain management, Precautions/restrictions, Role of Occupational Therapy, Positioning, Sitting balance to improve independence with ADLs/self-care, Standing balance to improve independence wi (more content not included)... [facility] THERAPY NT HNO ID: [id number] Author: Ivania Hampton PT Service: Physical Therapy Author Type: Physical Therapist Type: Therapy (PT/OT/Speech/Resp) Filed: 12/19/2020 11:40 AM Note Text: Physical Therapy Evaluation SERVICE DATE: 12/19/2020 SERVICE TIME: 0940 to 1015 ROOM: [place] [address] Recommended Discharge Disposition: Home PT Recommended Discharge Disposition Comments: anticipate HH PT; pending pt ability to a/d 3 steps and pain management. Anticipated Discharge Needs: Physical Assist at Home Physical Assist at Home for: Cleaning;Laundry;Meals;Sh opping;Transportation Recommended Discharge Equipment: No equipment needs anticipated (pt rpeorting has all needed DME from PT standpoint) PT 6 Clicks Score: 22 Precautions/Activity Restrictions: Total Hip Replacement;Weight Bearing Restrictions Extremity With Weight Bearing Restricted: Right Lower Extremity Right Lower Extremity Weight Bearing Status: WBAT Total Hip Replacement Precautions: Posterior Current Hospital Course: s/p R THR 12/18/20 Reason for Hospital Admission: R THR Relevant Past Medical History: SLE, fibromyalgia, obesity, Response to Therapy Interventions: Good participation in activities, Pain Continue skilled needs due to: Functional mobility/skill impairments Physical Therapy Problem List: Functional Mobility Impairment;Pain Treatment Interventions: Education;Self Care / Home Management;Energy Conservation Training;Joint Mobility;Strengthening;Fu nctional Mobility Training;Balance Training;Neuromuscular Re-education Plan for next visit: Stairs training, Gait training, Walker Training Home Environment Patient Lives With: Spouse Assistance Available: 24 Hour Entry To Home: Stairs;With Rail Number Of Stairs Into Home: 3 Number Of Stairs To Bed/Bath: 0- 1 level home Tub/Shower Type: tub/shower combo; with shower bench Laundry: spouse can complete Equipment Owned: Wheeled Walker;Cane;Traffic Supervisor;[place] manjinder Toilet Seat Prior Functional Level: Within Functional Limits Prior Functional Level Comments: pt independent [employer]; 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 Patient Report: RN ok'd to see; pt agreeable to PT CURRENT FUNCTIONAL STATUS: Most recent performance Current Functional Mobility Assist Level Additional Information Rolling Supine to Sit Minimal Assistance;Additional Information assistance to bring trunk up to sitting; pt stuck in depression in bed Sit to Supine Contact Guard Assistance Scooting Supervision Sit to Stand Supervision;Additional Information x2 trials prior to successful stand; increased pt effort due to pain Stand to Sit Supervision Bed to Chair Additional Information declines; wishes to rest in bed Toilet/Commode Supervision Gait Stand By Assistance;Additional Information Gait Device: Wheeled Walker Gait Distance (feet): 15' + 50' slowed gait; however steady with use of walker. pt uses step to pattern, RLE leading. no overt LOB Stairs Curb Step Car Transfer Blank rivas indicate activity not attempted Gait Deviations Right Lower Extremity: Stance time decreased General Deviations/Observations: Antalgic gait;Neeta decreased;Flexed trunk posture -M: 7: Walk 25 feet or more Learning/Educational Needs: Discharge Plan;Equipment;Family Education/Training;Functi onal Activities/Mobility;Plan of Care;Changes in Plan of Care;Pain Management;Precautions;Sa fety Goals for Plan of Care: Patient /Caregiver Goals: Go Home Goals: Patient will demonstrate progress with functional mobility to allow safe discharge to home with available support and/or physical assistance. Rehab Potential: Good Patient will be discontinued from Physical Therapy when no further skilled needs are identified in this setting. PLAN: Treatment Frequency (times per week): 7 Current admission Plan of Care developed with: Patient TREATMENT INTERVENTIONS: Therapy Diagnosis: Difficulty walking-musculoskeletal Interventions Provided: Evaluation;Gait Training (46952) $ Evaluation-Low (87954) Billed Units: 1 unit Gait Training (80710) Treatment Minutes: 16 $ Gait Training (88915) Billed Units: 1 unit Training AND education provided in: Advanced balance activities, Anatomy and impact on deficits, Assistive device use, Bed mobility, Exercise program, Gait pattern, reduction of deviations, Home safety, Precautions/restrictions, Patient Exercise/Therapy program support needs, Role of Physical Therapy, Standing balance, Transfers, Pre-gait activities, Benefits of in-hospital mobility, Discharge planning The following therapeutic skills were used: Activity dosing, Cues for sequencing/proper technique for activity, Cuing tactile, Cuing verbal, Cuing visual, Physical assist, Postural alignment correction Total Timed Code Treatment Minutes: 16 Total Treatment Time (minutes): 35 Please see discipline specific clinical documentation flowsheet for complete details for this therapy evaluation/treatment. SI (more content not included)... [facility] 12-18-2020 [facility] HNO ID: [id number] Author: Olga Melendez RT(R) Service: Radiology Author Type: Legal Executive Type: Allied Health Filed: 12/18/2020 1:21 PM Note Text: Radiology Service Progress Note PATIENT NAME: Jesus Wolf DATE OF SERVICE: December 18, 2020 TIME: 1:20 PM PATIENT IDENTITY VERIFICATION COMPLETED USING TWO (2) IDENTIFIERS: Name and Date of confirmed by patient verbally and Name and Date of confirmed by identification band. FALL SCREENING: Has the patient had 2 falls in the last year or 1 fall with injury or currently using an Ambulatory Assistive Device (Walker, Cane, Wheelchair, Crutches, etc.)? No PATIENT GENDER DATA: Female. status: : No status: N/A PATIENT RELEVANT IMPLANT DATA REVIEWED: Not Applicable RADIOLOGY DEPARTMENT: General X-ray: Exam(s) Completed: Pelvis X-Ray: Pelvis General AP PERIPHERAL IV DATA: Not applicable SIGNED BY: RT David(R) December 18, 2020 1:20 PM [facility] ANE POSTPROC EVALon 021 ANE POSTPROC EVAL HNO ID: [id number] Author: My Olivas MD Service: Anesthesiology Author Type: Anesthesiologist Type: Anesthesia Postprocedure Evaluation Filed: 12/18/2020 4:23 PM Note Text: POST ANESTHESIA EVALUATION NOTE : 1955 Procedure Summary Date: 12/18/20 Room / Location: OR / OR Anesthesia Start: 1014 Anesthesia Stop: 1229 Procedure: ARTHROPLASTY REPLACE JOINT TOTAL HIP (Right Hip) Diagnosis: Primary osteoarthritis of right hip (Primary osteoarthritis of right hip [M16.11]) Surgeons: Jose Lovelace Jr., MD Responsible Provider: My Olivas MD Anesthesia Type: spinal ASA Status: 3 Anesthesia Type: spinal Last vitals Vitals Value Taken Time BP 101/50 12/18/20 1604 Temp 36.4 ?C (97.5 ?F) 12/18/20 1604 Pulse 64 12/18/20 1604 Resp 18 12/18/20 1604 SpO2 99 % 12/18/20 1604 Post Anesthesia Patient Status Patient Evaluation: bedside. Anticipated Disposition: inpatient floor planned admission. Neurological Status: aware and responsive. Pulmonary Status: breathing comfortably on room air Airway Control: returned to baseline unsupported. Cardiovascular Status: stable. Pain Management: clinically adequate Postoperative Hydration: acceptable. Intraoperative Events: no significant anesthesia events Post Operative Nausea/Vomiting Status: no significant post operative nausea or vomiting Anesthetic Observations: Recommendation: continue current plan of care. No complications documented. SIGNATURE: My Olivas MD PATIENT NAME: Jesus Wolf DATE: December 18, 2020 TIME: 4:23 PM CSN: [id number] [facility] ANES PRE-OPon 12-18-2020 ANES PRE-OP HNO ID: [id number] Author: Russell Roman MD Service: Anesthesiology Author Type: Anesthesiologist Type: Anesthesia Preprocedure Evaluation Filed: 12/18/2020 9:46 AM Note Text: ANESTHESIOLOGY DAY OF SURGERY NOTE : 1955 Procedure(s) (LRB): ARTHROPLASTY REPLACE JOINT TOTAL HIP (Right) Surgeon(s): Jose Lovelace Jr., MD Estimated body mass index is 41.04 kg/m? as calculated from the following: Height as of 12/12/20: 170.2 cm (5' 7 ). Weight as of 12/12/20: 118.8 kg (262 lb). Most recent hematocrit and potassium results: Hematocrit 49.9 12/06/2020 Potassium 3.7 12/06/2020 Relevant Problems ANESTHESIA (+) Sleep apnea CARDIO (+) Atrial fibrillation (HCC) (+) Chronic congestive heart failure (HCC) (+) Essential hypertension ENDO (+) Hypothyroidism -RENAL (+) Membranous glomerulonephritis PULMONARY (+) Sleep apnea Other (+) Other synovitis and tenosynovitis, unspecified ankle and foot (+) Synovitis of foot (+) Synovitis of left foot (+) Synovitis of right foot I - PHYSICAL EVALUATION AIRWAY Patient intubated: No. Mallampati: II. TM distance: >3 FB. Neck ROM: full ROM without neurological symptoms. Mouth opening: adequate. DENTAL Normal dental observations. Dental findings: teeth intact. Additional exam findings: yes. CARDIOVASCULAR Normal cardiovascular observations. Rhythm: regular Rate: normal PULMONARY Normal pulmonary observations. Breath sounds clear to auscultation. II - ANESTHESIA PLAN ASA Score: 3 Anesthetic Plan: spinal The patient is not a current smoker. NPO Status: adequate Monitoring plan: standard ASA. Postoperative analgesic plan: multimodal analgesia. Anesthetic Risks, Benefits, Alternatives, Personnel Discussed. Consent obtained from: patient.Patient / Surrogate agrees to blood products: yes Significant changes in the patient condition since the History and Physical, not otherwise documented in primary service progress note: no. Potential Anesthesia issues that may suggest increased risk of complications or contraindication to planned procedure: none. Vitals Value Taken Time BP 115/50 12/18/20 0805 Pulse 70 12/18/20 0804 Resp 16 12/18/20803 Temp 36.7 ?C (98.1 ?F) 12/18/20803 SpO2 96 % 12/18/20803 Facility-Administered Medications as of 12/18/2020 Medication Dose Route Frequency - [COMPLETED] acetaminophen 1,000 mg tab(s) (TYLENOL) 1,000 mg ORAL Pre-Op Once - [COMPLETED] gabapentin 100 mg cap(s) (NEURONTIN) 100 mg ORAL Pre-Op Once - scopolamine 1 mg over 3 days 1 Patch (TRANSDERM-SCOP) 1 Patch TRANSDERMAL Pre-Op Once - lidocaine 10 mg/mL (1 %) 1-2 mg injection (XYLOCAINE) 0.1-0.2 mL INTRADERMAL PRN - lactated ringers iv infusion 5-30 mL/hr INTRAVENOUS CONTINUOUS - ceFAZolin iv piggyback 2 g in D5W (iso-osmotic) 100 mL (ANCEF) 2 g INTRAVENOUS Pre-Op Once - vancomycin 1.5 g in D5W 250 mL (VANCOCIN) 1.5 g INTRAVENOUS Pre-Op Once - [COMPLETED] tranexamic acid 1,000 mg in NaCl 0.9% 100 mL (CYKLOKAPRON) 1,000 mg INTRAVENOUS Pre-Op Once - tranexamic acid 1,000 mg in NaCl 0.9% 100 mL (CYKLOKAPRON) 1,000 mg INTRAVENOUS ONCE - [START ON 12/19/2020] scopolamine - REMOVE PATCH OTHER ONCE And - scopolamine - VERIFY patch OTHER q 8 H Outpatient Medications as of 12/18/2020 Medication Sig - ferrous sulfate (IRON) 325 mg (65 mg iron) tablet Take 1 tablet by mouth once daily. - venlafaxine ER (EFFEXOR XR) 150 mg 24 hr capsule Take 1 capsule by mouth once daily. - levothyroxine (SYNTHROID) 75 mcg tablet Take 75 mcg by mouth once daily. - hydrOXYchloroQUINE (PLAQUENIL) 200 mg tablet take 1 tablet by mouth twice a day take with food or milk NEEDS LABS - mycophenolate Mofetil (CELLCEPT) 500 mg tablet take 2 tablets by mouth every morning and 1 every evening - atorvastatin (LIPITOR) 40 mg tablet Take 1 tablet by mouth once daily. - Mesalamine (LIALDA) 1.2 gram EC tablet Take 4 tablets by mouth once daily. - omeprazole (PRILOSEC) 40 mg capsule Take 1 capsule by mouth once daily. - furosemide (LASIX) 40 mg tablet Take 40 mg by mouth every other day. - busPIRone (BUSPAR) 10 mg tablet Take 10 mg by mouth daily at bedtime. - metoprolol tartrate, short acting, (LOPRESSOR) 50 mg tablet Take 50 mg by mouth three times daily. - celecoxib (CELEBREX) 200 mg capsule Take 200 mg by mouth once daily. - spironolactone (ALDACTONE) 50 mg tablet Take 50 mg by mouth once daily. - acetaminophen (TYLENOL EXTRA STRENGTH) 500 mg tablet Take 2 tablets by mouth. Pre med - Cholecalciferol, Vitamin D3, 2,000 unit cap Take by mouth once daily. - CALCIUM CARBONATE/VITAMIN D3 (CALCIUM 600 + D ORAL) Take by mouth once daily. - vitamin b complex(B COMPLEX TAB) one daily - multivitamins w-minerals/lut(CENTRUM SILVER TAB) Take one(1) tablet daily. - PREDNISONE ORAL Pt states only taking medication before infusions. - apixaban (ELIQUIS) 5 mg tab(s) Take 1 tablet by mouth twice daily. I have interviewed a (more content not included)... Normal [facility] Basic Metabolic Panlon 12-18 Anion gap [Moles/Vol] 8 mmol/L Low 9-18 [facility] Comment on above: Performed By: #### C JACKIE, BMP ####[place] [id number] [phone] Calcium [Mass/Vol] 9.2 mg/dL Normal 8.5-10.2 [facility] Comment on above: Performed By: #### C JACKIE, BMP ####[place] [address] [phone] Chloride [Moles/Vol] 110 mmol/L High 97-105 [facility] Comment on above: Performed By: #### C JACKIE, BMP ####[place] [address] CO2 [Moles/Vol] 23 mmol/L Normal 22-30 [facility] Comment on above: Performed By: #### C JACKIE, BMP ####[address] Creatinine [Mass/Vol] 0.72 mg/dL Normal 0.58-0.96 [facility] Comment on above: Performed By: #### C JACKIE, BMP ####[address] eGFR- Amer. >60 Normal >60 [facility] Comment on above: Performed By: #### C JACKIE, BMP ####[address] eGFR-All Other Races >60 Normal >60 [facility] Comment on above: Result Comment: eGFR (Estimated GFR) Units of measure: mL/min/1.73 meters squared eGFR is derived from the reexpressed MDRD Study equation using the following parameters: serum creatinine, age, gender and race. The creatinine assay has been calibrated to be traceable to IDMS. An eGFR <60 mL/min/1.73m2 for >3 months is consistent with chronic kidney disease. Refer to KDOQI guidelines for clinical interpretation. In patients with unstable renal function, e.g. those with acute kidney injury, the eGFR may not accurately reflect actual GFR. Performed By: #### C JACKIE, BMP ####[address] Glucose [Mass/Vol] 104 mg/dL High 74-99 [facility] Comment on above: Performed By: #### C JACKIE, BMP ####[address] Potassium [Moles/Vol] 4.2 mmol/L Normal 3.7-5.1 [facility] Comment on above: Performed By: #### C JACKIE, BMP ####[address] Sodium [Moles/Vol] 141 mmol/L Normal 136-144 [facility] Comment on above: Performed By: #### C BC, BMP ####[place] [phone] Urea nitrogen [Mass/Vol] 12 mg/dL Normal 7-21 [facility] Comment on above: Performed By: #### C BC, BMP ####[place] [phone] CBCon 12-18-2020 Absolute nRBC <0.01 Normal <0.01 [facility] Comment on above: Performed By: #### C BC, BMP ####[place] [phone] Erythrocyte distribution width (RBC) [Ratio] 14.1 % Normal 11.5-15.0 [facility] Comment on above: Performed By: #### C BC, BMP ####[place] [phone] Hematocrit (Bld) [Volume fraction] 38.2 % Normal 36.0-46.0 [facility] Comment on above: Performed By: #### C BC, BMP ####[place] [phone] Hemoglobin (Bld) [Mass/Vol] 12.1 g/dL Normal 11.5-15.5 [facility] Comment on above: Performed By: #### C BC, BMP ####[address] MCH 32.0 pG Normal 26.0-34.0 [facility] Comment on above: Performed By: #### C BC, BMP ####[address] MCHC (RBC) [Mass/Vol] 31.7 g/dL Normal 30.5-36.0 [facility] Comment on above: Performed By: #### C BC, BMP ####[address] MCV (RBC) [Entitic vol] 101.1 fL High 80.0-100.0 [facility] Comment on above: Performed By: #### C BC, BMP ####[place] [address] [address] Platelet mean volume (Bld) [Entitic vol] 9.7 fL Normal 9.0-12.7 [facility] Comment on above: Performed By: #### C BC, BMP ####[facility] Platelets (Bld) [#/Vol] 177 10*3/uL Normal 150-400 [facility] Comment on above: Performed By: #### C BC, BMP ####[facility] RBC (Bld) [#/Vol] 3.78 10*6/uL Low 3.90-5.20 [facility] Comment on above: Performed By: #### C BC, BMP ####[facility] WBC (Bld) [#/Vol] 8.22 10*3/uL Normal 3.70-11.00 [facility] Comment on above: Performed By: #### C JACKIE, BMP ####[address] CONSULTon 12-18-2020 CONSULT HNO ID: [id number] Author: Obinna Nichols MD Service: General Internal Medicine Author Type: Physician Type: Consults Filed: 12/18/2020 9:05 PM Note Text: CONSULT NOTE - INTERNAL MEDICINE PATIENT NAME: Jesus Wolf SERVICE DATE: 12/18/2020 SERVICE TIME: 9:01 PM ADMITTING PHYSICIAN: Jose Lovelace Jr., MD CC: Post operative medical m/m, patient is s/p right THR HPI: Her pain is controlled well; she has been out of bed, tolerated activity well. Patient denies any postoperative nausea or vomiting. She denies any recent fever or chills, skin infections or any upper respiratory infections. She does not smoke. Patient drinks alcohol very rarely. PAST MEDICAL HISTORY Diagnosis Date - Arrhythmia - Atrial fibrillation (HCC) on coumadin - Herniated intervertebral disk - HTN (hypertension) - Hyperlipemia - Kidney disease - MONI (obstructive sleep apnea) no longer using CPAP since 60 lb weight loss - Other acute pancreatitis with uninfected necrosis - SLE (systemic lupus erythematosus) (HCC) PAST SURGICAL HISTORY Procedure Laterality Date - APPENDECTOMY - CARPAL TUNNEL RIGHT WRIST surgical correction - COLONOSCOPY 05/10/2019 [facility] - COLONOSCOPY GEN ANES 07/23/2020 Dr. Reinoso/Diverticulosis/Hemo rrhoids/ Ulcerative Colitis/Rpt in 2 yrs. - EGD EUS 01/11/2020 [facility] - LASIK Right prior to 1999 - MRI PANC/JEANIE WO/W IVCON 12/20/2019 - OVARIAN CYSTECTOMY - PAST SURGICAL HISTORY OF 07/2013 bilateral foot procedure, Sherry - PAST SURGICAL HISTORY OF Ablation X2 - TONSILLECTOMY HX Social History Tobacco Use - Smoking status: Never Smoker - Smokeless tobacco: Never Used Vaping Use - Vaping Use: Never used Substance Use Topics - Alcohol use: Yes Comment: very rare - Drug use: No MEDICATIONS: Current Facility-Administered Medications Medication Dose Route Frequency Provider Last Rate Last Admin - scopolamine - VERIFY patch OTHER q 8 H Drerick Fermin PA-C - scopolamine - REMOVE PATCH OTHER ONCE Derrick Fermin PA-C - busPIRone 10 mg tab(s) (BUSPAR) 10 mg ORAL AT BEDTIME Jose Lovelace Jr., MD 10 mg at 12/18/202026 - [START ON 12/19/2020] atorvastatin 40 mg tab(s) (LIPITOR) 40 mg ORAL DAILY Jose Lovelace Jr., MD - hydrOXYchloroQUINE 200 mg tab(s) (PLAQUENIL) 200 mg ORAL BID Jose Lovelace Jr., MD 200 mg at 12/18/202026 - spironolactone 50 mg tab(s) (ALDACTONE) 50 mg ORAL DAILY Jania Glover APRN.CNP - [START ON 12/19/2020] pantoprazole DR 40 mg tab(s) (PROTONIX) 40 mg ORAL DAILY (6 AM) Jose Lovelace Jr., MD - [START ON 12/19/2020] venlafaxine ER 150 mg cap(s) (EFFEXOR XR) 150 mg ORAL DAILY Jose Lovelace Jr., MD - levothyroxine (SYNTHROID) tab(s) 75 mcg 75 mcg ORAL DAILY (6 AM) Jose Lovelace Jr., MD - lactated ringers iv infusion 100 mL/hr INTRAVENOUS CONTINUOUS Jose Lovelace Jr., MD 100 mL/hr at 12/18/20 1409 100 mL/hr at 12/18/20 1409 - sodium chloride 0.9 % (flush) 2-10 mL (BD POSIFLUSH) 2-10 mL INTRAVENOUS q 12 H Jose Lovelace Jr., MD - morphine 2-4 mg injection 2-4 mg INTRAVENOUS q 3 H PRN Jose Lovelace Jr., MD - oxyCODONE IR 5-10 mg tab(s) (ROXICODONE) 5-10 mg ORAL q 4 H PRN Jose Lovelace Jr., MD 5 mg at 12/18/202030 - acetaminophen 1,000 mg tab(s) (TYLENOL) 1,000 mg ORAL q 8 H Jose Lovelace Jr., MD 1,000 mg at 12/18/202026 - [START ON 12/19/2020] magnesium hydroxide 400 mg/5 mL 30 mL (MOM) 30 mL ORAL DAILY PRN Jose Lovelace Jr., MD - [START ON 12/20/2020] bisacodyl EC 10 mg tab(s) (DULCOLAX) 10 mg ORAL DAILY Jose Lovelace Jr., MD - aluminum-magnesium hydroxide-simethicone 200-200-20 mg/5 mL 30 mL (MAALOX,MYLANTA,MAG-AL PLUS) 30 mL ORAL q 2 H PRN Jose Lovelace Jr., MD - [START ON 12/19/2020] ferrous sulfate 325 mg tab(s) 325 mg ORAL DAILY wLUNCH Jose Lovelace Jr., MD - [START ON 12/19/2020] ascorbic acid (vitamin C) 500 mg tab(s) (VITAMIN C) 500 mg ORAL BID w MEALS Jose Lovelace Jr., MD - senna 17.2 mg tab(s) (SENOKOT) 17.2 mg ORAL AT BEDTIME Jose Lovelace Jr., MD 17.2 mg at 12/18/202026 - ceFAZolin iv piggyback 1 g in D5W (iso-osmotic) 50 mL (ANCEF) 1 g INTRAVENOUS q 8 HR Jose Lovelace Jr., MD Stopped at 12/18/20 183 - keTORolac 15 mg injection (TORADOL) 15 mg INTRAVENOUS q 6 H Jose Lovelace Jr., MD 15 mg at 12/18/201803 - [START ON 12/19/2020] apixaban 5 mg tab(s) (ELIQUIS) 5 mg ORAL BID Jose Lovelace Jr., MD - balsalazide 2,250 mg cap(s) (COLAZAL) 2,250 mg ORAL TID Jose Lovelace Jr., MD 2,250 mg at 12/18/202026 - [START ON 12/19/2020] metoprolol tartrate (short acting) 50 mg tab(s) (LOPRESSOR) 50 mg ORAL DAILY (8 AM) Obinna Nichols MD - metoprolol tartrate (short acting) 100 mg tab(s) (LOPRESSOR) 100 mg ORAL DAILY AT 6 PM Jania Glover APRN.ASSET PROTECTION DETECTIVE 100 mg at 12/18/202032 - furosemide 20 mg tab(s) (LASIX) 20 mg ORAL DAILY Obinna Nichols MD ALLERGIES Allergen Reactions - Dofetilide Other: See Comments, Anaph (more content not included)... Normal [facility] Confirm Blood Typeon 021 ABO/RH(D) Positive Normal [facility] Comment on above: Performed By: #### C ONABO #### [facility] [address] [place] [address] NURSING PROGon 12-18-2020 NURSING PROG HNO ID: [id number] Author: Court Bullock RN Service: ? Author Type: Registered Nurse Type: Nursing Progress Note Filed: 12/18/2020 3:16 PM Note Text: Nursing Progress Note Patient Name: Jesus Wolf Patient Location: [id number] Patient transferred from PACU to room 518-1 in stable condition at this time. Patient is alert and oriented x 3. Vital signs stable. Patient educated regarding 5D/unit environment, call light, fall precautions, incentive spirometer and pain management. Patient verbalizes understanding. This note was completed by: Court Bullock [facility] NURSING PROG HNO ID: [id number] Author: Sayda Luis RN Service: ? Author Type: Registered Nurse Type: Nursing Progress Note Filed: 12/18/2020 12:26 PM Note Text: Discharge Status: Patient is Drowsy, and has no airway issues. Skin condition was WNL. Warm blankets provided. Bilateral heel pads in place. Transported to recovery room via bed with siderails up. Accompanied by Alexei Lovelace ELECTRONIC SYSTEMS TECHNICIAN AND PAC [facility] OPERATIVE NOon 12-18-2020 OPERATIVE NO HNO ID: [id number] Author: Jose Lovelace Jr., MD Service: Orthopaedic Surgery Author Type: Physician Type: Operative Report Filed: 12/18/2020 12:13 PM Note Text: [facility] OPERATIVE REPORT PATIENT NAME: Jesus Wolf AGE: [age] year old LOG ID: [id number] Surgery Date: 12/18/2020 SURGEON: Jose Lovelace M.D. MATLAB DEVELOPER: Derrick Fermin PA-C his assistance consisted of assistance with retraction, positioning and closing of the wound No resident physicians were available to participate in the case. PROCEDURE: Right TOTAL HIP REPLACEMENT-DIRECT LATERAL Procedure(s) (LRB): ARTHROPLASTY REPLACE JOINT TOTAL HIP (Right) Anesthesia: General Preop Diagnosis: Pre-Op Diagnosis Codes: * Primary osteoarthritis of right hip [M16.11] Postop Diagnosis: Same as Pre-Op Diagnosis Codes: * Primary osteoarthritis of right hip [M16.11] BMI: Estimated body mass index is 41.04 kg/m? as calculated from the following: Height as of 12/12/20: 170.2 cm (5' 7 ). Weight as of 12/12/20: 118.8 kg (262 lb). OPERATIVE INDICATIONS: This is a 65 year old female with osteoarthritis of the right hip. Nonoperative management has been exhausted. The decision was made to proceed with a total hip arthroplasty. Risks, benefits, and alternatives were discussed. She expressed understanding and consented to the procedure as outlined above. The patient was seen by [facility] Internal Medicine for pre-operative optimization. Darby-operative blood management and the potential for blood transfusion were discussed with risks and options clearly outlined. The patient has consented to the use of banked allogenic blood if medically necessary. IMPLANTS: [facility] Total Hip System SIZE TYPE Acetabulum 52mm Trident 2 Screws 25 mm Polyethylene Liner 36mm Neutral Femur 5 standard Accolade 2 Femoral Head 36mm, +0 Ceramic OPERATIVE FINDINGS: Severe osteoarthritis of the Right hip OPERATIVE PROCEDURE: The patient was identified and brought into the Operating Room by the anesthesia and nursing team. Anesthesia was successfully performed. The patient was then positioned lateral decubitus on the operating room table with the Right hip facing up . Intravenous antibiotic prophylaxis dosing was confirmed. The Rightlower extremity was then prepped and draped in the usual sterile fashion with Chloraprep scrub. A surgical time-out was performed immediately preceding the incision with all personnel in the operating room; the patient identity was again confirmed, the surgical site and extremity were identified and confirmed, X-rays were reviewed, and availability of the appropriate surgical equipment was established. Direct lateral approach to the hip was undertaken. Sharp dissection was carried out through skin and subcutaneous tissue down to the level of the IT band. The IT band was split in line with the skin incision. A portion of the gluteus medius was released from the greater trochanter. The gluteus minimus was released from the greater trochanter and tagged with suture. Anterior capsulectomy was then performed. The hip was dislocated. Proximal femoral osteotomy was performed. The boxing and pressing supervisor osteotome was utilized to lateralize the starting point of proximal femur. The canal finder was inserted and sequential broaching was performed up to an 5 which provided external rotational stability. Retractors were then placed around the acetabulum. Remainder of the anterior capsule and the labrum was excised. Reaming began at 48 and increased sequentially to a 52 to accommodate a 52 acetabulum. A 52 acetabulum was impacted in place with assistance from the external alignment guide. Excellent rim fit was obtained. Fixation augmented with a cancellous screw. The liner was then impacted into the cup. A standard neck and a 36 +0 head was then tried. The hip was reduced. It was taken through range of motion and was very stable. No tendency towards dislocation or impingement. The limb lengths were closely reapproximated, so the decision was made to use these size components. The hip was dislocated. All trial components were removed from the femur. The pain cocktail was injected into the soft tissues. The stem was then impacted into the femur. Excellent fit was obtained. The head was impacted onto the neck, thereby engaging the taper. The hip was reduced. It continued to track well. The decision was made to proceed with closure. The wound was copiously irrigated out with normal saline with the pulse lavage. Instrument and sponge count was completed and confirmed correct. The gluteus minimus was reapproximated to the greater trochanter with 1 Ethibond suture. The gluteus medius was reapproximated to the greater trochanter with 1 Ethibond suture. The deep subcutaneous tissue was closed with a running 1-0 Vicryl suture. The subcutaneous tissue was closed with an interrupted 2-0 (more content not included)... [facility] XR PELVIS 1V APon 12-18-2020 XR PELVIS 1V AP * * *Final Report* * * DATE OF EXAM: Dec 18 2020 1:19PM LUX 5239 - XR PELVIS 1V AP / PROCEDURE REASON: Post-operative / post-procedure assessment, asymptomatic * * * * Physician Interpretation * * * * PELVIS X-RAY History: Post-operative / post-procedure assessment, asymptomatic Technique: AP supine view. Comparison: 11/29/2020. Result: Right total hip arthroplasty without hardware complication. No acute fracture or malalignment. Postoperative gas in the right hip. Left superior pelvis not included in the [id number]. IMPRESSION: Postoperative changes of right total hip arthroplasty without hardware complication. Rn [facility]ation[facility] Trans[facility] Date/Time: Dec 18 2020 1:29P Dictated by : OBED ECHEVERRIA MD This examination was interpreted and the report reviewed and electronically signed by: OBED ECHEVERRIA MD on Dec 18 2020 1:31PM EST [id number] [facility] Hemoglobin A1con 12-06-2020 Glucose [Mass/Vol] 111 mg/dL [facility] Comment on above: Result Comment: eAG: (Estimated average glucose) is a calculated value from HgbA1c and is event marketing representative of the average blood glucose level in the last 2-3 month period. Performed By: #### H BA1C ####[place] [phone] HbA1c (Bld) [Mass fraction] 5.5 % Normal 4.3-5.6 [facility] Comment on above: Result Comment: [facility] Diabetes Association guidelines indicate that patients with HgbA1c in the range 5.7-6.4% are at increased risk for development of diabetes, and intervention by lifestyle modification may be beneficial. HgbA1c greater or equal to 6.5% is considered diagnostic of diabetes. Performed By: #### H BA1C ####[place] [phone] Type and SCR (30D)on 021 ABO/RH(D) Positive Normal [facility] Comment on above: Performed By: #### T [id number] #### [facility] [address] [place] [address] Urinalysis with Microscopico n 12-06-2020 Bilirubin, Urine Negative Normal Negative [facility] Comment on above: Performed By: #### U AWMIC ####[place] [phone] Cast SEE COMMENT Critically abnormal 0 [facility] Comment on above: Result Comment: 4-10 Hyaline Cast Performed By: #### U AWMIC ####[place] [phone] Clarity (U) Clear Normal Clear [facility] Comment on above: Performed By: #### U AWMIC ####[address] [place] [phone] Color (U) Light Yellow Critically abnormal Yellow [facility] Comment on above: Performed By: #### U AWMIC ####[place] [phone] Comments SEE COMMENT Normal [facility] Comment on above: Result Comment: N/A Performed By: #### U AWMIC ####[place] [address] [address] [phone] Epithelial cells LM Ql (Urine sed) SEE COMMENT [facility] Comment on above: Result Comment: Few Squamous Epithelial Cells Performed By: #### U AWMIC ####[place] [address] [address] [phone] Glucose Ql (U) Negative Normal Negative [facility] Comment on above: Performed By: #### U AWMIC ####[place] [address] [address] [place] [phone] Hemoglobin/Blood,Ur Negative Normal [facility] Comment on above: Performed By: #### U AWMIC ####[place] [address] [address] [phone] Ketones Ql (U) Negative Normal [facility] Comment on above: Performed By: #### U AWMIC ####[place] [address] [address] [phone] Leukest Trace Critically abnormal Negative [facility] Comment on above: Performed By: #### U AWMIC ####[place] [address] [address] [place] [phone] Nitrite Ql (U) Negative Normal [facility] Comment on above: Performed By: #### U AWMIC ####[place] [address] [address] [place] [phone] pH (U) 6.0 [pH] Normal 5.0-8.0 [facility] Comment on above: Performed By: #### U AWMIC ####[place] [address] [address] [place] [phone] Protein, Urine Negative Normal [facility] Comment on above: Performed By: #### U AWMIC ####[place] [address] [address] [place] [phone] RBC 0-3 Normal 0-3 [facility] Comment on above: Performed By: #### U AWMIC ####[facility] [address], [place] [phone] Specific [place], Ur 1.011 Normal 1.005-1.030 [facility] Comment on above: Performed By: #### U AWMIC ####[facility] [address], [place] [phone] Urine Neil Comment SEE COMMENT Normal [facility] Comment on above: Result Comment: Resu lt rechecked. Performed By: #### U AWMIC ####[facility] [address] [employer]eCJ[place] [phone] Urobilinogen (U) [Mass/Vol] Negative Normal Negative [facility] Comment on above: Performed By: #### U AWMIC ####[facility] [address] [place] [phone] WBC 0-5 Normal 0-5 [facility] Comment on above: Performed By: #### U AWMIC ####[facility] [address] [employer], [place] [phone] Urine Cultureon 12-06-2020 Bacteria identified Cx Nom (U) Culture Result - >=100,000 CFU/ml Escherichia coli --> ABNORMAL ALERT ORGANISM: Escherichia coli METHOD: Minimum inhibitory concentration(Vitek) Antibiotic Interp NEIL Status Ampicillin SUSCEPTIBLE 4 F Gentamicin SUSCEPTIBLE <=1 F Trimeth sulfameth SUSCEPTIBLE <=20 F Cefazolin SUSCEPTIBLE <=4 F CLSI breakpoints for therapy of uncomplicated UTI's due to E.coli, K.pneumoniae, and P.mirabilis were applied and may be used to predict the activity of oral agents(cefaclor, cefdinir, cefpodoxime, cefprozil, cefuroxime, cephalexin, loracarbef). Ciprofloxacin SUSCEPTIBLE <=0.25 F Nitrofurantoin SUSCEPTIBLE <=16 F Cefepime SUSCEPTIBLE <=1 F Piperacillin/Tazobac SUSCEPTIBLE <=4 F Ampicillin Sulbact SUSCEPTIBLE <=2 F Ceftriaxone SUSCEPTIBLE <=1 F Meropenem SUSCEPTIBLE <=0.25 F Ertapenem SUSCEPTIBLE <=0.5 F Critically abnormal [facility] Comment on above: Performed By: #### U RCUL ####[facility] [address] [place], [place] [phone] ABD RT UPPER QUADRANTon 0 09-03-2020 [facility] Prothrombin Timeon 9 INR Coag RelTime (PPP) 1.47 {INR} High 0.90-1.10 [facility] Comment on above: Performed By: #### [id number] #### [facility] [address] [place] [address] Prothrombin time (PT) Coag time (PPP) 16.8 s High 9.7-12.[address] [facility] Comment on above: Result Comment: REENA GARRETT NOTE NEW REFERENCE RANGE EFFECTIVE 2018 Performed By: #### 3 [id number] #### [facility] [facility] [address] [place] [address] Prothrombin Timeon 9 INR Coag RelTime (PPP) 2.23 {INR} High 0.90-1.10 [facility] Comment on above: Performed By: [id number] #### [facility] [address] [place] [address] Prothrombin time (PT) Coag time (PPP) 25.6 s High 9.7-12.[address] [facility] Healthcare Comment on above: Result Comment: REENA GARRETT NOTE NEW REFERENCE RANGE EFFECTIVE 2018 Performed By: [id number] #### [facility] [address] [place] [address] Vital Signs Date Time Vital Sign Value Performing Clinician Facility 09-01-2023 13:15-0500 Body height 170.2 cm Jania Saeed APRN-WAREHOUSE MANAGER Work Phone: [employer] 09-01-2023 13:15-0500 Body mass index (BMI) [Ratio] 40.5 kg/m2 Jania Saeed APRN-WAREHOUSE MANAGER Work Phone: [employer] 09-01-2023 13:15-050 Body temperature 97.39 [degF] Jania Saeed RELATIONS LIAISON-WAREHOUSE MANAGER Work Phone: [facility] 09-01-2023 13:15-0500 Body weight 117.3 kg Jania Saeed APRN-WAREHOUSE MANAGER Work Phone: [facility] 09-01-2023 13:15-0500 Diastolic blood pressure 70 mm[Hg] Jania Saeed RELATIONS LIAISON-WAREHOUSE MANAGER Work Phone: [facility] 09-01-2023 13:15-0500 Heart rate 64 /min Jania Saeed APRN-WAREHOUSE MANAGER Work Phone: [facility] 09-01-2023 13:15-0500 SaO2% (BldA) [Mass fraction] 98 % Jania Saeed RELATIONS LIAISON-WAREHOUSE MANAGER Work Phone: [facility] 09-01-2023 13:15-0500 Systolic blood pressure 110 mm[Hg] Jania Saeed APRN-WAREHOUSE MANAGER Work Phone: [facility] 07-01-2023 09:00-0500 Body temperature 98.1 [degF] Rheu Digna Work Phone: [facility] 07-01-2023 09:00-0500 Body weight 117.48 kg Rheu Digna Work Phone: [facility] 07-01-2023 09:00-0500 Diastolic blood pressure 56 mm[Hg] Rheu Digna Work Phone: [facility] 07-01-2023 09:00-0500 Heart rate 69 /min Rheu Digna Work Phone: [facility] 07-01-2023 09:00-0500 Respiratory rate 18 /min Rheu Digna Work Phone: [facility] 07-01-2023 09:00-0500 Systolic blood pressure 137 mm[Hg] Rheu Digna Work Phone: [facility] 04-15-2023 08:59-0400 Body weight 115.21 kg Dione Reinoso MD Work Phone: [facility] 04-15-2023 08:59-0400 Diastolic blood pressure 85 mm[Hg] Dione Reinoso MD Work Phone: [facility] 04-15-2023 08:59-0400 Heart rate 70 /min Dione Reinoso MD Work Phone: [facility] 04-15-2023 08:59-0400 Systolic blood pressure 142 mm[Hg] Dione Reinoso MD Work Phone: [facility] 04-02-2023 08:40-0400 Diastolic blood pressure 74 mm[Hg] Dione Reinoso MD Work Phone: [facility] 04-02-2023 08:40-0400 Heart rate 75 /min Dione Reinoso MD Work Phone: [facility] 04-02-2023 08:40-0400 Respiratory rate 16 /min Dione Reinoso MD Work Phone: [facility] 04-02-2023 08:40-0400 SaO2% (BldA) [Mass fraction] 96 % Dione Reinoso MD Work Phone: [facility] 04-02-2023 08:40-0400 Systolic blood pressure 147 mm[Hg] Dione Reinoso MD Work Phone: [facility] 04-02-2023 08:10-0400 Body temperature 99.81 [degF] Dione Reinoso MD Work Phone: [facility] 03-19-2023 10:02-0400 Body temperature 97.2 [degF] Rheu Digna Work Phone: [facility] 03-19-2023 10:02-0400 Body weight 115.67 kg Rheu Digna Work Phone: [facility] 03-19-2023 10:02-0400 Diastolic blood pressure 63 mm[Hg] Rheu Digna Work Phone: [facility] 03-19-2023 10:02-0400 Heart rate 66 /min Rheu Digna Work Phone: [facility] 03-19-2023 10:02-0400 SaO2% (BldA) [Mass fraction] 97 % Rheu Digna Work Phone: [facility] 03-19-2023 10:02-0400 Systolic blood pressure 127 mm[Hg] Rheu Digna Work Phone: [facility] 02-04-2023 13:14-0400 Body temperature 97 [degF] Nadege Bustamantehn DO Work Phone: [facility] 02-04-2023 13:14-0400 Body weight 113.4 kg Nadege Bianchijohn DO Work Phone: [facility] 02-04-2023 13:14-0400 Diastolic blood pressure 54 mm[Hg] Nadege Bianchijohn DO Work Phone: [facility] 02-04-2023 13:14-0400 Heart rate 72 /min Nadege Bustamantehn DO Work Phone: [facility] 02-04-2023 13:14-0400 Systolic blood pressure 116 mm[Hg] Nadege Bianchijohn DO Work Phone: [facility] 12-15-2022 13:00-0400 Diastolic blood pressure 73 mm[Hg] Rheu Digna Work Phone: [facility] 12-15-2022 13:00-0400 Heart rate 88 /min Rheu Digna Work Phone: [facility] 12-15-2022 13:00-0400 Systolic blood pressure 126 mm[Hg] Rheu Digna Work Phone: [facility] 12-15-2022 10:00-0400 Body temperature 97 [degF] Rheu Digna Work Phone: [facility] 12-15-2022 10:00-0400 Body weight 113.4 kg Rheu Digna Work Phone: [facility] 12-15-2022 10:00-0400 Respiratory rate 18 /min Rheu Digna Work Phone: [facility] 09-17-2022 08:45-0500 65 1 Wojciech Johnston Furlong Work Phone: [facility] [address] [place] Work Phone: Comment on above: [place] [id number] 09-15-2022 13:15-0500 Diastolic blood pressure 63 mm[Hg] Rheu Digna Work Phone: [facility] 09-15-2022 13:15-0500 Heart rate 75 /min Rheu Digna Work Phone: [facility] 09-15-2022 13:15-0500 Respiratory rate 18 /min Rheu Digna Work Phone: [facility] 09-15-2022 13:15-0500 Systolic blood pressure 98 mm[Hg] Rheu Digna Work Phone: [facility] 09-15-2022 10:10-0500 Body temperature 97.39 [degF] Rheu Digna Work Phone: [facility] 09-15-2022 10:10-0500 Body weight 111.13 kg Rheu Digna Work Phone: [facility] 08-15-2022 10:00-0500 62 1 Wojciech Johnston Furlong Work Phone: [facility] [address] DO Work Phone: Comment on above: [place] [id number] 08-01-2022 10:00-0500 Body height 170.18 cm Wojciech Johnston Furlong Work Phone: [facility] [address] DO Work Phone: 08-01-2022 10:00-0500 Body mass index (BMI) [Ratio] 38.69 kg/m2 Wojciech G Furlong Work Phone: [facility] [address] DO Work Phone: 08-01-2022 10:00-0500 Body surface area Derived from formula 2.21 m2 Wojciech G Furlong Work Phone: [facility] [address] DO Work Phone: 08-01-2022 10:00-0500 Body weight 112.04 kg Wojciech Klinelong Work Phone: [facility] [address] DO Work Phone: 08-01-2022 10:00-0500 Diastolic blood pressure 68 mm[Hg] Wojciech Johnston Furlong Work Phone: [facility] [address] DO Work Phone: 08-01-2022 10:00-0500 Heart rate 72 /min Wojciech Klinelong Work Phone: [facility] [address] DO Work Phone: 08-01-2022 10:00-0500 Systolic blood pressure 108 mm[Hg] Wojciech Klinelong Work Phone: [facility] [address] DO Work Phone: 07-31-2022 08:49-0500 Body height 167.6 cm Pacc 2 Work Phone: [facility] 07-31-2022 08:49-0500 Body temperature 97 [degF] Pacc 2 Work Phone: [facility] 07-31-2022 08:49-0500 Body weight 111.58 kg Pacc 2 Work Phone: [facility] 07-31-2022 08:49-0500 Diastolic blood pressure 92 mm[Hg] Pacc 2 Work Phone: [facility] 07-31-2022 08:49-0500 Heart rate 79 /min Pacc 2 Work Phone: [facility] 07-31-2022 08:49-0500 Respiratory rate 16 /min Pacc 2 Work Phone: [facility] 07-31-2022 08:49-0500 SaO2% (BldA) [Mass fraction] 99 % Pacc 2 Work Phone: [facility] 07-31-2022 08:49-0500 Systolic blood pressure 136 mm[Hg] Pac 2 Work Phone: [facility] 07-07-2022 11:56-0500 Body height 170.2 cm Bryan Painting MD Work Phone: [facility] 07-07-2022 11:56-0500 Body weight 116.39 kg Bryan Painting MD Work Phone: [facility] 07-07-2022 11:56-0500 Diastolic blood pressure 48 mm[Hg] Bryan Painting MD Work Phone: [facility] 07-07-2022 11:56-0500 Heart rate 80 /min Bryan Painting MD Work Phone: [facility] 07-07-2022 11:56-0500 Systolic blood pressure 124 mm[Hg] Bryan Painting MD Work Phone: [facility] 06-12-2022 15:30-0400 Diastolic blood pressure 58 mm[Hg] Rheu Main Work Phone: [facility] 06-12-2022 15:30-0400 Heart rate 72 /min Rheu Main Work Phone: [facility] 06-12-2022 15:30-0400 Systolic blood pressure 114 mm[Hg] Rheu Main Work Phone: [facility] 06-12-2022 12:45-0400 Body temperature 97.39 [degF] Rheu Main Work Phone: [facility] 06-11-2022 14:38-0400 Body weight 114.72 kg Lemuel Davis MD Work Phone: [facility] 06-11-2022 14:38-0400 Diastolic blood pressure 64 mm[Hg] Lemuel Davis MD Work Phone: [facility] 06-11-2022 14:38-0400 Heart rate 75 /min Lemuel Davis MD Work Phone: [facility] 06-11-2022 14:38-0400 Systolic blood pressure 112 mm[Hg] Lemuel Davis MD Work Phone: [facility] 04-18-2022 15:53-0400 Body height 170.2 cm Julia Mariana PA-C Work Phone: [facility] 04-18-2022 15:53-0400 Body temperature 97.3 [degF] Julia Mariana PA-C Work Phone: [facility] 04-18-2022 15:53-0400 Body weight 114.72 kg Julia Mariana PA-C Work Phone: [facility] 04-18-2022 15:53-0400 Diastolic blood pressure 67 mm[Hg] Julia Mariana PA-C Work Phone: [facility] 04-18-2022 15:53-0400 Heart rate 73 /min Julia Mariana PA-C Work Phone: [facility] 04-18-2022 15:53-0400 Systolic blood pressure 122 mm[Hg] Julia Mariana PA-C Work Phone: [facility] 03-13-2022 14:30-0400 Diastolic blood pressure 50 mm[Hg] Rheu Main Work Phone: [facility] 03-13-2022 14:30-0400 Heart rate 68 /min Rheu Main Work Phone: [facility] 03-13-2022 14:30-0400 Systolic blood pressure 97 mm[Hg] Rheu Main Work Phone: [facility] 03-13-2022 11:43-0400 Body temperature 97.81 [degF] Rheu Main Work Phone: [facility] 03-13-2022 11:12-0400 Body temperature 96.91 [degF] Evelin Alicea MD Work Phone: [facility] 03-13-2022 11:12-0400 Body weight 115.39 kg Evelin Alicea MD Work Phone: [facility] 03-13-2022 11:12-0400 Diastolic blood pressure 50 mm[Hg] Evelin Alicea MD Work Phone: [facility] 03-13-2022 11:12-0400 Heart rate 67 /min Evelin Alicea MD Work Phone: [facility] 03-13-2022 11:12-0400 Systolic blood pressure 121 mm[Hg] Evelin Alicea MD Work Phone: [facility] 02-13-2022 16:10-0400 Body height 170.18 cm DO Wojciech Furlong Work Phone: [facility] 02-13-2022 16:10-0400 Body mass index (BMI) [Ratio] 39.4 kg/m2 DO Wojciech Furlong Work Phone: [facility] 02-13-2022 16:10-0400 Body temperature 97.7 [degF] DO Wojciech iTwixielong Work Phone: [facility] 02-13-2022 16:10-0400 Body weight 114.3 kg DO Wojciech Furlong Work Phone: [facility] 02-13-2022 16:10-0400 Diastolic blood pressure 103 mm[Hg] DO Wojciech Furlong Work Phone: [facility] 02-13-2022 16:10-0400 Heart rate 100 /min DO Wojciech Furlong Work Phone: [facility] 02-13-2022 16:10-0400 Respiratory rate 18 /min DO Wojciech Furlong Work Phone: [facility] 02-13-2022 16:10-0400 SaO2% (BldA) [Mass fraction] 98 % DO Wojciech Furlong Work Phone: [facility] 02-13-2022 16:10-0400 Systolic blood pressure 127 mm[Hg] DO Wojciech Furlong Work Phone: [facility] 02-09-2022 08:00-0400 Body temperature 97.9 [degF] DO Wojciech Furlong Work Phone: [facility] 02-09-2022 08:00-0400 Diastolic blood pressure 71 mm[Hg] DO Wojciech Furlong Work Phone: [facility] 02-09-2022 08:00-0400 Heart rate 71 /min DO Wojciech Furlong Work Phone: [facility] 02-09-2022 08:00-0400 Respiratory rate 18 /min DO Wojciech Furlong Work Phone: [facility] 02-09-2022 08:00-0400 SaO2% (BldA) [Mass fraction] 94 % DO Wojciech Furlong Work Phone: [facility] 02-09-2022 08:00-0400 Systolic blood pressure 123 mm[Hg] DO Wojciech Furlong Work Phone: [facility] 02-09-2022 05:37-0400 Body weight 115.1 kg DO Wojciech Furlong Work Phone: [facility] 02-07-2022 20:42-0400 Body height 167.64 cm DO Wojciech Furlong Work Phone: [facility] 02-07-2022 20:42-0400 Body mass index (BMI) [Ratio] 41.3 kg/m2 DO Wojciech Furlong Work Phone: [facility] 02-07-2022 19:13-0400 Diastolic blood pressure 53 mm[Hg] DO Wojciech Furlong Work Phone: [facility] 02-07-2022 19:13-0400 Heart rate 75 /min DO Wojciech Furlong Work Phone: [facility] 02-07-2022 19:13-0400 Respiratory rate 18 /min DO Wojciech Furlong Work Phone: [facility] 02-07-2022 19:13-0400 SaO2% (BldA) [Mass fraction] 98 % DO Wojciech Furlong Work Phone: [facility] 02-07-2022 19:13-0400 Systolic blood pressure 120 mm[Hg] DO Wojciech Furlong Work Phone: [facility] 02-07-2022 11:48-0400 Body temperature 98.1 [degF] DO Wojciech Furlong Work Phone: [facility] 02-07-2022 11:47-0400 Body height 167.64 cm DO Wojciech Furlong Work Phone: [facility] 02-07-2022 11:47-0400 Body mass index (BMI) [Ratio] 41.1 kg/m2 DO Wojciech Furlong Work Phone: [facility] 02-07-2022 11:47-0400 Body weight 115.66 kg DO Wojciech Furlong Work Phone: [facility] 12-09-2021 14:45-0400 Diastolic blood pressure 62 mm[Hg] Rheu Main Work Phone: [facility] 12-09-2021 14:45-0400 Heart rate 75 /min Rheu Main Work Phone: [facility] 12-09-2021 14:45-0400 Systolic blood pressure 103 mm[Hg] Rheu Main Work Phone: [facility] 12-09-2021 12:00-0400 Body temperature 97.3 [degF] Rheu Main Work Phone: [facility] 09-12-2021 08:50-0500 Diastolic blood pressure 64 mm[Hg] Dione Reinoso MD Work Phone: [facility] 09-12-2021 08:50-0500 Heart rate 66 /min Dione Reinoso MD Work Phone: [facility] 09-12-2021 08:50-0500 Respiratory rate 16 /min Dione Reinoso MD Work Phone: [facility] 09-12-2021 08:50-0500 SaO2% (BldA) [Mass fraction] 97 % Dione Reinoso MD Work Phone: [facility] 09-12-2021 08:50-0500 Systolic blood pressure 144 mm[Hg] Dione Reinoso MD Work Phone: [facility] 09-12-2021 08:24-0500 Body temperature 97.39 [degF] Dione Reinoso MD Work Phone: [facility] Encounters Encounter Date Encounter Type Care Provider Facility Start: 09-14-2023 Refill Wojciech barnes DO Work Phone: [facility] Start: 09-01-2023 End: 09-01-2023 ambulatory [facility] Start: 09-01-2023 End: 09-01-2023 Office outpatient visit 15 minutes [facility] RELATIONS LIAISON-WAREHOUSE MANAGER Work Phone: [facility] Comment on above: Viral upper respirat ory tract infection (Primary Dx) Start: 08-27-2023 End: 08-27-2023 ambulatory [facility]UG[facility] BILL Not Available Start: 08-20-2023 Orders Only Wojciech barnes DO Work Phone: [facility] Start: 08-05-2023 End: 08-05-2023 ambulatory AUGUST BILL Not Available Start: 08-03-2023 ambulatory DALILA CERVANTES Facility:[facility] Start: 07-20-2023 ambulatory Dalila Cervantes DPM Work Phone: Orthopaedics Start: 07-20-2023 Telephone encounter Ezequiel Cervantes DPM Work Phone: Orthopaedics Comment on above: Surgical Followup Start: 07-07-2023 Telephone encounter Ezequiel Cervantes DPM Work Phone: Orthopaedics Comment on above: Surgical Followup Start: 07-02-2023 End: 07-02-2023 Orders Only LuigiEzio Franco DPM Work Phone: Podiatry Comment on above: Pain in left foot (P rimary Dx) Ulcer of toe of righ t foot, limited to breakdown of skin (HCC) (Primary Dx); Pre-ulcerative calluses; Osteoarthritis of midtarsal joint of left foot; Osteoarthritis of midtarsal joint of right foot Start: 07-01-2023 End: 07-01-2023 ambulatory [facility] Facility:[facility] Start: 07-01-2023 End: 07-01-2023 ambulatory Rena Rodriguez 7 Digna Work Phone: Infusion Comment on above: Systemic lupus eryth ematosus, unspecified SLE type, unspecified organ involvement status (HCC) (Primary Dx); High risk medication use Start: 06-24-2023 Orders Only Nadege roberto DO Work Phone: Rheumatology Start: 06-16-2023 Refill Dione Romero Work Phone: Gastroenterology Comment on above: Refill Request Start: 06-10-2023 Telephone encounter Horace cortez PA-C Work Phone: [facility] [place] Comment on above: Medication Question Start: 05-21-2023 End: 05-21-2023 ambulatory BEVERLY FRANCO Facility:[facility] Start: 04-23-2023 ambulatory Nadege Susan roberto DO Work Phone: Rheumatology Comment on above: Missed appt and test Start: 04-22-2023 End: 04-22-2023 ambulatory [facility] Facility:[facility] Start: 04-22-2023 End: 04-22-2023 ambulatory [facility] Facility:[facility] Start: 09-01-2023 Orders Only Jania GONZALES P Work Phone: Hematology/Oncology Comment on above: Mixed hyperlipidemia (Primary Dx); Hypomagnesemia Start: 04-17-2023 Refill Dione Romero Work Phone: Gastroenterology Comment on above: Refill Request Start: 04-15-2023 End: 04-15-2023 ambulatory [facility] Facility:[facility] Start: 04-15-2023 End: 04-15-2023 Patient encounter procedure Dione Reinoso MD Work Phone: Gastroenterology Comment on above: Other ulcerative col itis without complication (HCC) (Primary Dx); Gastroesophageal reflux disease without esophagitis Start: 04-10-2023 End: 04-10-2023 [facility] Facility:[facility] Start: 04-10-2023 End: 04-10-2023 ambulatory Nadege Hawkins DO Work Phone: Rheumatology Comment on above: Systemic lupus eryth ematosus, unspecified SLE type, unspecified organ involvement status (HCC) (Primary Dx); Thin blood (HCC) Start: 04-10-2023 End: 04-10-2023 Telemedicine consultation with patient Nadege Hawkins DO Work Phone: [facility] Start: 04-08-2023 Telephone encounter Dione wheeler MD Work Phone: Gastroenterology Comment on above: Results (Colon) Start: 04-02-2023 End: 04-02-2023 ambulatory [facility] Facility:[facility] Start: 04-02-2023 End: 04-02-2023 Subsequent hospital visit by physician Dione Reinoso MD Work Phone: Ambulatory Surgery Comment on above: IBD (inflammatory talya wel disease) [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] Start: 03-19-2023 End: 03-19-2023 ambulatory Rheu Chair 6 Digna Work Phone: Infusion Comment on above: Systemic lupus eryth ematosus, unspecified SLE type, unspecified organ involvement status (HCC) (Primary Dx) Start: 03-17-2023 ambulatory [facility] Comment on above: Infusion for 03/19 Start: 03-17-2023 E-mail encounter reena price caregiver [facility] Start: 03-15-2023 Refill Dione Romero Work Phone: Gastroenterology Comment on above: Refill Request Start: 03-12-2023 End: 03-12-2023 Patient encounter procedure Beverly Franco DPM Work Phone: Podiatry Comment on above: Ulcer of toe of righ t foot, limited to breakdown of skin (HCC) (Primary Dx); Pre-ulcerative calluses Start: 03-12-2023 End: 03-12-2023 ambulatory WOJCIECH FRANCISCO JAVIER DALTON Facility:[facility] Start: 2023 Telephone encounter Dione wheeler MD Work Phone: Gastroenterology Comment on above: Appointment Start: 02-16-2023 Refill Evelin Alicea MD Work Phone: Rheumatology Comment on above: Refill Request Start: 02-13-2023 Telephone encounter Dione wheeler MD Work Phone: Gastroenterology Comment on above: Results (labs) Start: 02-12-2023 End: 02-12-2023 ambulatory BEVERLY FRANCO Facility:[facility] Start: 02-12-2023 End: 02-12-2023 Patient encounter procedure Beverly Franco DPM Work Phone: Podiatry Comment on above: Ulcer of toe of righ t foot, limited to breakdown of skin (HCC) (Primary Dx); Pre-ulcerative calluses; Cellulitis of second toe of right foot Start: 02-09-2023 Refill Heaven Romero Work Phone: Cardiology Comment on above: Refill Request; Foll ow Up Start: 02-09-2023 Telephone encounter Bryan Romero Work Phone: Endocrine Surgery Comment on above: Results Start: 02-05-2023 Orders Only Nadege roberto DO Work Phone: Rheumatology Start: 02-04-2023 End: 02-05-2023 ambulatory [facility] Facility:[facility] Start: 02-04-2023 End: 02-04-2023 Patient encounter procedure Nadege Hawkins Work Phone: Rheumatology Comment on above: Systemic lupus eryth ematosus, unspecified SLE type, unspecified organ involvement status (HCC) (Primary Dx); Need for vaccination against Streptococcus pneumoniae Start: 01-22-2023 End: 01-22-2023 ambulatory [facility] Facility:[facility] Start: 01-22-2023 End: 01-22-2023 Patient encounter procedure Beverly Franco DPM Work Phone: Podiatry Comment on above: Ulcer of toe of righ t foot, limited to breakdown of skin (HCC) (Primary Dx); Pre-ulcerative calluses Start: 01-12-2023 Refill Dione Romero Work Phone: Gastroenterology Comment on above: Refill Request (vivek stipol) Start: 01-08-2023 End: 01-08-2023 ambulatory [facility] Facility:[facility] Start: 12-25-2022 End: 12-25-2022 [facility] Facility:[facility] Start: 12-15-2022 End: 12-15-2022 ambulatory Georginayunier Rodriguez 2 Digna Work Phone: Infusion Comment on above: Systemic lupus eryth ematosus, unspecified SLE type, unspecified organ involvement status (HCC) (Primary Dx); High risk medication use Start: 12-15-2022 Patient encounter procedure Dione Reinoso MD Work Phone: Gastroenterology Comment on above: Office visit Start: 12-12-2022 ambulatory Evelin Alicea MD Work Phone: Infusion Comment on above: Infusion Confirmatio n Start: 12-12-2022 E-mail encounter fro m caregiver Evelin Alicea MD Work Phone: [facility] Start: 11-24-2022 Refill Dione Romero Work Phone: Gastroenterology Comment on above: Refill Request (iron ) Start: 10-28-2022 Refill Dione Romero Work Phone: Gastroenterology Comment on above: Refill Request Start: 10-27-2022 End: 10-27-2022 ambulatory DALILA CERVANTES Facility:[facility] Start: 10-24-2022 ambulatory Dalila Cervantes DPM Work Phone: Orthopaedics Start: 10-24-2022 Telephone encounter Ezequiel fields Oziel Cervantes DPM Work Phone: Orthopaedics Comment on above: Surgical Followup Start: 10-23-2022 ambulatory Dione Romero Work Phone: Gastroenterology Comment on above: Diarrhea and stomach acid Start: 10-21-2022 ambulatory Dione Romero Work Phone: Gastroenterology Comment on above: [place] Start: 10-21-2022 Telephone encounter Ezequiel diamond Cervantes DPM Work Phone: Orthopaedics Comment on above: Surgical Followup Start: 10-16-2022 End: 10-16-2022 ambulatory WOJCIECH TREVIÑO Facility:[facility] Start: 10-16-2022 End: 10-16-2022 Office outpatient visit 15 minutes Julia Ann PA-C Work Phone: [facility] Comment on above: Osteopenia, unspecif ied location (Primary Dx); S/P parathyroidectomy (HCC); 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 Start: 10-15-2022 ambulatory Dione Romero Work Phone: Gastroenterology Comment on above: Colestipol Start: 09-30-2022 ambulatory Dione Romero Work Phone: Gastroenterology Comment on above: Cdif Start: 09-28-2022 End: 09-29-[address] WOJCIECH TREVIÑO Facility: Start: 09-24-2022 Rx Renewal Wojciech barnes Work Phone: [facility] 250 DO Work Phone: Start: 09-21-2022 Refill Dione Romero Work Phone: Gastroenterology Comment on above: Refill Request (Lial da) Start: 09-21-2022 Refill Keyanna Carter APRNAjayASSET PROTECTION DETECTIVE Work Phone: Cardiology Comment on above: Refill Request Start: 09-18-2022 Chart Update Wojciech Johnston Daphne molly Work Phone: [facility] 250 DO Work Phone: Start: 09-17-[address] Yuriy Ramos0m Fac ility:[id number] Start: 09-17-2022 Patient encounter procedure Wojciech Klinemike Work Phone: [facility] [address] [place] Work Phone: Start: 09-15-2022 Telephone encounter Bryan Romero Work Phone: Endocrine Surgery Comment on above: Results Start: 09-15-2022 End: 09-15-2022 ambulatory Rheu Chair 4 Digna Work Phone: Infusion Comment on above: Systemic lupus eryth ematosus, unspecified SLE type, unspecified organ involvement status (HCC) (Primary Dx) Start: 09-12-2022 Telephone encounter Evelin Alicea MD Work Phone: Infusion Comment on above: Patient Question (I spoke to Jesus and she will be coming for her infusion on Thursday09-15-22. She states that she had parathyroid surgery since her last infusion. She has had a follow up apt with her PCP, and her incision is healed. She was not on any antibiotics for this procedure. She denies having been sick or on any recent antibiotics. ) Start: 09-10-2022 Rx Renewal Wojciech Klinecynthia barnes Work Phone: [facility] 600 DO Work Phone: Start: 09-10-2022 Refill Dione Romero Work Phone: Gastroenterology Comment on above: Refill Request Start: 09-09-2022 End: 09-09-2022 ambulatory WOJCIECH KLINENG Facility:[facility] Start: 09-08-2022 Telephone encounter Bryan Romero Work Phone: Endocrine Surgery Comment on above: Patient Update Start: 08-28-2022 End: 08-28-2022 ambulatory WOJCIECH MCINTYRE [facility] Facility:[facility] Start: 08-28-2022 Encounter for preprocedural laboratory examination DR DOCTOR SAGE [facility] Start: 08-27-2022 End: 08-28-2022 [facility] Start: 08-26-2022 Telephone encounter Bryan Romero Work Phone: Endocrine Surgery Comment on above: Results (Covid) Start: 08-25-2022 End: 08-26-2022 Orders Only Bryan Painting MD Work Phone: Endocrine Surgery Comment on above: Hyperparathyroidism (HCC) (Primary Dx) Start: 08-25-2022 End: 08-26-2022 Encounter for preprocedural laboratory examination DR DOCTOR SAGE Facility: Start: 08-22-2022 Telephone encounter Bryan Romero Work Phone: Endocrine Surgery Comment on above: Patient Update Preparations For Maura torres Start: 08-22-[address] Yuriy Baum Fac ility:[id number] Start: 08-21-2022 Telephone encounter Bryan Romero Work Phone: Endocrine Surgery Comment on above: Clinical Project Assistant - O ther Start: 08-15-2022 Encounter for other preprocedural examination Dr. Yuriy Baum [facility] Start: 08-15-[address] Yuriy Baum Fac ility:[id number] Start: 08-01-2022 ambulatory Wojciech Treviño Facility: Start: 08-01-2022 Office consultation new/estab patient 80 min Wojciech Taz Ki Work Phone: [facility] 250 DO Work Phone: Start: 08-01-2022 Office outpatient ne w 60 minutes Wojciech Treviño Work Phone: [facility] Work Phone: Start: 08-01-2022 Patient encounter procedure Wojciech Treviño Work Phone: [facility] 250 DO Work Phone: Start: 07-31-2022 End: 07-31-2022 Admission to [facility] 2 Work Phone: [facility] Start: 07-31-2022 End: 07-31-2022 ambulatory [place] [id number] Work Phone: Pre Anesthesia Comment on above: Pre-op evaluation (P rimary Dx); Ascending aortic aneurysm, unspecified whether ruptured; Obesity, Class II, BMI 35-39.9; Mixed hyperlipidemia; Acquired hypothyroidism; Chronic diastolic congestive heart failure (HCC); Obstructive sleep apnea syndrome; Systemic lupus erythematosus, unspecified SLE type, unspecified organ involvement status (HCC); Fibromyalgia; Essential hypertension; Paroxysmal atrial fibrillation (HCC); Obesity, Class III, BMI >= 40 Start: 07-31-2022 End: 07-31-2022 Preprocedural examination done [facility] 2 Work Phone: Pre Anesthesia Start: 07-23-2022 Telephone encounter Dione wheeler MD Work Phone: Gastroenterology Comment on above: Orders Start: 07-17-2022 ambulatory Lemuel salinas MD Work Phone: Endocrinology Comment on above: Zoom appt. Start: 07-07-2022 End: 07-07-2022 Orders Only Bryan Painting MD Work Phone: Endocrine Surgery Comment on above: Primary hyperparathy roidism (HCC) (Primary Dx) Hyperparathyroidism (HCC) [E21.3] Hypercalcemia; Hyperparathyroid (HCC) Start: 07-01-2022 Orders Only Bryan Painting MD Work Phone: Endocrine Surgery Comment on above: Hyperparathyroidism (HCC) (Primary Dx) Consult (Face Sheet) Start: 06-17-2022 ambulatory Sandy Arredondo MD Work Phone: Endocrinology BMI Comment on above: Pancreas check Start: 06-14-2022 ambulatory Evelin Alicea MD Work Phone: Rheumatology Comment on above: Blood work results Start: 06-12-2022 End: 06-12-2022 ambulatory Georginau Chair 6 Main Work Phone: Rheumatology Comment on above: Systemic lupus eryth ematosus, unspecified SLE type, unspecified organ involvement status (HCC) (Primary Dx); Hyperparathyroid (HCC) Start: 06-11-2022 End: 06-11-2022 Patient encounter procedure Lemeul Bejarano MD Work Phone: Endocrinology Comment on above: Hypercalcemia; Hyperparathyroid (HCC) Start: 05-23-2022 ambulatory Sandy Arredondo MD Work Phone: Endocrinology BMI Comment on above: MRI Start: 05-19-2022 ambulatory Dalila Cervantes DPM Work Phone: Orthopaedics Start: 05-19-2022 Telephone encounter Ezequiel Cervantes DPM Work Phone: Orthopaedics Comment on above: Surgical Followup Start: 05-14-2022 Refill Dione Romero Work Phone: Gastroenterology Comment on above: Refill Request Refill Start: 05-12-2022 End: 05-12-2022 ambulatory Julia Peña PA-C Work Phone: [facility] Comment on above: Osteopenia, unspecif ied location (Primary Dx); Balance problem; Hypercalcemia; Hyperparathyroid (HCC) Start: 05-12-2022 End: 05-12-2022 Telemedicine consultation with patient Julia Peña PA-C Work Phone: [facility] Start: 05-06-2022 Get Medical Advice Dione godinez MD Work Phone: Gastroenterology Comment on above: Refill Refill Request Start: 04-18-2022 End: 04-18-2022 Patient encounter procedure Julia Peña PA-C Work Phone: [facility] Comment on above: Osteopenia, unspecif ied location (Primary Dx); Vitamin D deficiency disease; Serum calcium elevated; Balance problem Start: 03-27-2022 Orders Only Mann dickson MD Work Phone: Cardiology Comment on above: Hypertrophic obstruc tive cardiomyopathy (HCC) (Primary Dx) Start: 03-20-2022 ambulatory Evelin Alicea MD Work Phone: Rheumatology Comment on above: Meds Start: 03-17-2022 ambulatory Evelin Alicea MD Work Phone: Rheumatology Comment on above: Calcium level Start: 03-17-2022 E-mail encounter reena m caregiver Evelin Alicea MD Work Phone: [facility] Start: 03-13-2022 End: 03-13-2022 Patient encounter procedure Bone Density Prodigy [facility] Start: 03-13-2022 End: 03-13-2022 Nursing evaluation of patient and report Nurse Rena Main Work Phone: Rheumatology Start: 03-13-2022 End: 03-13-2022 ambulatory Rheu Chair 5 Main Work Phone: Rheumatology Comment on above: Systemic lupus eryth ematosus, unspecified SLE type, unspecified organ involvement status (HCC) (Primary Dx); Membranous lupus nephritis syndrome (HCC); High risk medication use; Encounter for prophylactic measures, unspecified Radiology BMD Start: 03-13-2022 End: 03-13-2022 Patient encounter procedure Evelin Alicea MD Work Phone: Rheumatology Comment on above: Membranous lupus nep hritis syndrome (HCC) (Primary Dx); High risk medication use; Systemic lupus erythematosus, unspecified SLE type, unspecified organ involvement status (HCC); Asymptomatic postmenopausal status Start: 03-12-2022 ambulatory [facility] Provider Rheumatolo gy Comment on above: Covid test Start: 03-12-2022 E-mail encounter fro m caregiver [facility] Provider [facility] Start: 03-06-2022 Telephone encounter Evelin Alicea MD Work Phone: Rheumatology Comment on above: Orders (Evusheld) Start: 02-24-2022 Telephone encounter Dione hweeler MD Work Phone: Gastroenterology Comment on above: Results; Orders Start: 02-23-2022 Refill Evelin Alicea MD Work Phone: Rheumatology Comment on above: Refill Request Start: 02-21-2022 Telephone encounter Dione wheeler MD Work Phone: Gastroenterology Comment on above: Results Start: 02-20-2022 ambulatory Dione Romero Work Phone: Gastroenterology Comment on above: Return call Start: 02-14-2022 ambulatory Dione Romero Work Phone: Gastroenterology Comment on above: Er visit Prescription Start: 02-13-2022 End: 02-13-[address] MIRTHA MAYEN Facility: Start: 02-13-2022 End: 02-13-2022 Emergency department patient visit Wojciech Furlong Facility:[facility] Start: 02-13-2022 End: 02-13-2022 Emergency department patient visit DO Wojciech Furlong Work Phone: [facility]-Emergency Room Start: 02-07-2022 End: 02-09-2022 ambulatory Rachelle Frazier Facility:[facility] Start: 02-07-2022 End: 02-09-2022 Evaluation and management of inpatient DO Wojciech Furlong Work Phone: [facility] [place] [facility] Start: 01-31-2022 ambulatory Dione Romero Work Phone: Gastroenterology Comment on above: Questions Start: 01-30-2022 ambulatory Dione Romero Work Phone: [facility] Start: 01-30-2022 Patient encounter procedure Dione Reinoso MD Work Phone: Gastroenterology Comment on above: Appointment KIM Start: 01-24-2022 Refill Sanjay Aggarwal MD Work Phone: Cardiology Comment on above: Refill Request Start: 01-22-2022 Get Medical Advice Dione godinez MD Work Phone: Gastroenterology Comment on above: Med refill Start: 12-29-2021 Get Medical Advice Dione godinez MD Work Phone: Gastroenterology Comment on above: Refill Start: 12-09-2021 End: 12-09-2021 Patient encounter procedure Cuca RUIZ Work Phone: Rheumatology Comment on above: Systemic lupus eryth ematosus, unspecified SLE type, unspecified organ involvement status (HCC) (Primary Dx); High risk medication use; Long-term use of Plaquenil Start: 12-09-2021 End: 12-09-2021 ambulatory Rheu Chair 4 Main Work Phone: Rheumatology Comment on above: Systemic lupus eryth ematosus, unspecified SLE type, unspecified organ involvement status (HCC) (Primary Dx); High risk medication use Start: 11-15-2021 Get Medical Advice Dione godinez MD Work Phone: Gastroenterology Comment on above: Refill Start: 09-12-2021 End: 09-12-2021 Subsequent hospital visit by physician Dione Reinoso MD Work Phone: Ambulatory Surgery Comment on above: Diarrhea, unspecifie d type [R19.7] Start: 09-03-2020 End: 09-03-2020 Subsequent hospital visit by physician [facility] Digna Radiology Comment on above: Calculus of gallblad avery without cholecystitis without obstruction [K80.20] Start: 10-12-2018 Patient encounter procedure YAN CONWAY Facility:[id number] Start: 10-06-2018 Patient encounter procedure YAN CONWAY Facility:[id number] Preoperative state Wojciech hermosillo Work Phone: [facility] 250 DO Work Phone: Procedures Date Procedure Procedure Detail Performing Clinician Start: 09-01-2023 Adult depression screening assessment Jania Saeed RELATIONS LIAISON-WAREHOUSE MANAGER Work Phone: Start: 04-22-2023 Lipid 1996 panel - Serum or Plasma Horace perkins PA-C Work Phone: Start: 04-15-2023 Adult depression screening assessment Wojciech Sernang DO Work Phone: Start: 04-02-2023 Colonoscopy flx dx w/collj spec when pfrmd Dione Reinoso MD Work Phone: Start: 04-02-2023 Colonoscopy Dione Reinoso MD Work Phone: Start: 04-01-2023 Mammography Dione Reinoso MD Work Phone: Start: 09-17-2022 Echocardiography Wojciech G Daphneng Work Phone: Start: 07-07-2022 Parathyroid imaging w/tomographic spect & ct Bryan Painting MD Work Phone: Start: 06-12-2022 Comprehensive metabolic panel Lemuel mendoza MD Work Phone: Start: 03-13-2022 Dxa bone density study 1/> sites axial skel Evelin Alicea MD Work Phone: Start: 03-13-2022 2019 NOVEL CORONAVIRUS (COVID-19) [facility] Pr ovider Start: 03-13-2022 Blood count complete auto&auto difrntl wbc Evelin Alicea MD Work Phone: Start: 03-13-2022 C-reactive protein Evelin Alicea MD Work Phone: Start: 02-08-2022 MRI of head DO [employer] Work Phone: Start: 02-07-2022 Computed tomography angiography of abdominal and/or pelvic blood vessel DO [employer] Work Phone: Start: 02-07-2022 CT angiography of head DO [employer] Work Phone: Start: 02-07-2022 CT angiography of neck vessels DO Wojciech Treviño Work Phone: Start: 02-07-2022 CT angiography of thorax DO Wojciech barnes Work Phone: Start: 02-07-2022 CT of head without contrast DO Wojciech zarate Work Phone: Start: 02-07-2022 SARS Antigen (LFIA) DO Wojciech Treviño Work Phone: Start: 02-07-2022 Urine culture DO Wojciech Treviño Work Phone: Start: 02-07-2022 Plain chest X-ray DO Wojciech Treviño Work Phone: Start: 12-09-2021 Blood count complete auto&auto difrntl wbc Cuca RUIZ Work Phone: Start: 12-09-2021 C-reactive protein Cuca RUIZ Work Phone: Start: 11-13-2021 Adult depression screening assessment Dione Reinoso MD Work Phone: Start: 09-12-2021 CONVERTED SURGICAL PATHOLOGY Dione lujan MD Work Phone: Start: 09-12-2021 SURGICAL PATHOLOGY Dione Reinoso MD Work Phone: Start: 09-12-2021 Esophagogastroduodenoscopy transoral diagnostic Dione Reinoso MD Work Phone: Start: 09-12-2021 Colonoscopy flx dx w/collj spec when pfrmd Dione Reinoso MD Work Phone: Start: 09-12-2021 Colonoscopy Dione Reinoso MD Work Phone: Start: 12-06-2020 Antibody screen Comment on above: Performed By: #### [id number] #### [address] [address] Start: 09-03-2020 Us abdominal real time w/image limited Sandy Arredondo MD Work Phone: Appendectomy Wojciech johnston Work Phone: Excision of cyst Wjociech zarate Work Phone: Operative procedure on foot Wojciech Treviño Work Phone: Tonsillectomy Wojciech barnes Work Phone: Total replacement of hip Jenaro Treviño Work Phone: Plan of Treatment Date Care Activity Detail Author Start: 04-02-2033 Screening for malignant neoplasm of colon Colonoscopy [facility] Start: 04-22-2028 Lipid 1996 panel - Serum or Plasma Lipid Screening [facility] Start: 04-22-2028 LIPID SCREEN LIPID SCREEN [facility] Start: 09-10-2027 LIPID SCREEN LIPID SCREEN [facility] Start: 04-22-2026 DIABETES SCREEN DIABETES SCREEN [facility] Start: 04-22-2026 Diabetes Screening Diabetes Screening [facility] Start: 02-04-2026 DIABETES SCREEN DIABETES SCREEN [facility] Start: 06-30-2025 DIABETES SCREEN DIABETES SCREEN [facility] Start: 06-25-2025 LIPID SCREEN LIPID SCREEN [facility] Start: 06-12-2025 DIABETES SCREEN DIABETES SCREEN [facility] Start: 03-13-2025 DIABETES SCREEN DIABETES SCREEN [facility] Start: 12-09-2024 DIABETES SCREEN DIABETES SCREEN [facility] Start: 09-01-2024 Adult BMI Screening Adult BMI Screening [facility] Start: 09-01-2024 Depression Screening Depression Screening [facility] Start: 09-01-2024 Tobacco Screening Tobacco Screening [facility] Start: 07-27-2024 Tobacco Screening Tobacco Screening [facility] Start: 05-16-2024 DIABETES SCREEN DIABETES SCREEN [facility] Start: 04-15-2024 Adult BMI Screening Adult BMI Screening [facility] Start: 04-15-2024 Depression Screening Depression Screening [facility] Start: 04-15-2024 Fall Risk Screening Fall Risk Screening [facility] Start: 04-02-2024 Colonoscopy COLONOSCOPY [facility] Start: 04-02-2024 COLORECTAL CANCER SCREENING COLORECTAL CANCER SCREENING [facility] Start: 04-01-2024 Mammography [facility] Start: 04-01-2024 Screening for malignant neoplasm of breast Mammogram [facility] Start: 02-16-2024 End: 02-16-2024 Patient encounter procedure 02/16/2024 9:00 AM EDT Office Visit [facility] [address] [place] [address] [facility] Start: 02-05-2024 BP CONTROLLED (<130/80) BP CONTROLLED (<130/80) [facility] Start: 01-28-2024 Medicare Annual Wellness Visit Medicare Annual Wellness Visit [facility] Start: 07-21-2023 FUV, Provider: Yuriy Conway, Status: Pen, Time: 10:20 AM FUV, Provider: Yuriy Conway, Status: Pen, Time: 10:20 AM [facility] 250 DO Work Phone: Start: 07-07-2023 BP CONTROLLED (<130/80) BP CONTROLLED (<130/80) [facility] Start: 06-11-2023 BP CONTROLLED (<130/80) BP CONTROLLED (<130/80) [facility] Start: 04-18-2023 BP CONTROLLED (<130/80) BP CONTROLLED (<130/80) [facility] Start: 04-17-2023 Covid-19 Vaccine ( season) Covid-19 Vaccine ( season) [facility] Start: 04-17-2023 Influenza vaccination [facility] Start: 04-17-2023 End: 06-17-2023 Lipid 1996 panel - Serum or Plasma LIPID PANEL BASIC Lab Routine Mixed hyperlipidemia Hypomagnesemia Expected: 04/17/2023, Expires: 06/17/2023 [facility] Work Phone: Comment on above: Expected: 04/17/2023, Expires: Start: 04-17-2023 End: 06-17-2023 Magnesium [Mass/volume] in Serum or Plasma MAGNESIUM BLD Lab Routine Mixed hyperlipidemia Hypomagnesemia Expected: 04/17/2023, Expires: 06/17/2023 [facility] Work Phone: Comment on above: Expected: 04/17/2023, Expires: Start: 04-10-2023 End: 06-10-2023 CBC W Auto Differential panel - Blood CBC + DIFF Lab Routine Systemic lupus erythematosus, unspecified SLE type, unspecified organ involvement status (HCC) Expected: 04/10/2023, Expires: 06/10/2023 [facility] Work Phone: Comment on above: Expected: 04/10/2023, Expires: 3 Start: 04-10-2023 End: 06-10-2023 Complement C3 [Mass/volume] in Serum or Plasma C3 COMPLEMENT BLD Lab Routine Systemic lupus erythematosus, unspecified SLE type, unspecified organ involvement status (HCC) Expected: 04/10/2023, Expires: 06/10/2023 [facility] Work Phone: Comment on above: Expected: 04/10/2023, Expires: 3 Start: 04-10-2023 End: 06-10-2023 Complement C4 [Mass/volume] in Serum or Plasma C4 COMPLEMENT BLD Lab Routine Systemic lupus erythematosus, unspecified SLE type, unspecified organ involvement status (HCC) Expected: 04/10/2023, Expires: 06/10/2023 [facility] Work Phone: Comment on above: Expected: 04/10/2023, Expires: Start: 04-10-2023 End: 06-10-2023 Comprehensive metabolic 2000 panel - Serum or Plasma COMP METABOLIC PANEL Lab Routine Systemic lupus erythematosus, unspecified SLE type, unspecified organ involvement status (HCC) Expected: 04/10/2023, Expires: 06/10/2023 [facility] Work Phone: Comment on above: Expected: 04/10/2023, Expires: 3 Start: 04-10-2023 End: 06-10-2023 DNA ANTIBODY DS BLD DNA ANTIBODY DS BLD Lab Routine Systemic lupus erythematosus, unspecified SLE type, unspecified organ involvement status (HCC) Expected: 04/10/2023, Expires: 06/10/2023 [facility] Work Phone: Comment on above: Expected: 04/10/2023, Expires: 3 Start: 04-10-2023 End: 06-10-2023 Protein/Creatinine [Mass Ratio] in Urine PROTEIN CREATININE RATIO Lab Routine Systemic lupus erythematosus, unspecified SLE type, unspecified organ involvement status (HCC) Expected: 04/10/2023, Expires: 06/10/2023 [facility] Work Phone: Comment on above: Expected: 04/10/2023, Expires: 3 Start: 04-10-2023 End: 06-10-2023 Urinalysis complete panel - Urine URINALYSIS, WITH MICROSCOPIC Lab Routine Systemic lupus erythematosus, unspecified SLE type, unspecified organ involvement status (HCC) Expected: 04/10/2023, Expires: 06/10/2023 [facility] Work Phone: Comment on above: Expected: 04/10/2023, Expires: 3 Start: 03-13-2023 BP CONTROLLED (<130/80) BP CONTROLLED (<130/80) [facility] Start: 02-21-2023 End: 03-23-2023 25-hydroxyvitamin D3 [Mass/volume] in Serum or Plasma VITAMIN D 25 HYDROXY Lab Routine Hyperparathyroidism (HCC) Expected: 02/21/2023, Expires: 03/23/2023 [facility] Work Phone: Comment on above: Expected: 02/21/2023, Expires: 3 Start: 02-21-2023 End: 03-23-2023 Calcium [Mass/volume] in Serum or Plasma CALCIUM TOTAL BLD Lab Routine Hyperparathyroidism (HCC) Expected: 02/21/2023, Expires: 03/23/2023 [facility] Work Phone: Comment on above: Expected: 02/21/2023, Expires: 3 Start: 02-21-2023 End: 03-23-2023 Parathyrin.intact [Mass/volume] in Serum or Plasma PTH INTACT BLD Lab Routine Hyperparathyroidism (HCC) Expected: 02/21/2023, Expires: 03/23/2023 [facility] Work Phone: Comment on above: Expected: 02/21/2023, Expires: 3 Start: 02-04-2023 End: 04-06-2023 PARVEZ BY IFA WITH REFLEX [facility] Work Phone: Comment on above: Expected: 02/04/2023, Expires: 3 Start: 02-04-2023 End: 04-06-2023 Cyclic citrullinated peptide IgG Ab [Units/volume] in Serum or Plasma [facility] Work Phone: Comment on above: Expected: 02/04/2023, Expires: 3 Start: 02-04-2023 End: 04-06-2023 DNA ANTIBODY DS BLD [facility] Work Phone: Comment on above: Expected: 02/04/2023, Expires: 3 Start: 01-01-2023 BP CONTROLLED (<130/80) BP CONTROLLED (<130/80) [facility] Start: 12-19-2022 End: 2023 Calprotectin [Mass/mass] in Stool CALPROTECTIN,FECAL Lab Routine Diarrhea, unspecified type Expected: 12/19/2022 (Approximate), Expires: 2023 [facility] Work Phone: Comment on above: Expected: 12/19/2022 (Approximate), Expi res: 2023 Start: 12-19-2022 End: 2023 Clostridioides difficile toxin genes [Presence] in Stool by RAVIN with probe detection C. DIFFICILE PCR Lab Routine Diarrhea, unspecified type Expected: 12/19/2022 (Approximate), Expires: 2023 [facility] Work Phone: Comment on above: Expected: 12/19/2022 (Approximate), Expi res: 2023 Start: 12-19-2022 End: 2023 ENTERIC BACTERIAL PANEL BY PCR ENTERIC BACTERIAL PANEL BY PCR Lab Routine Diarrhea, unspecified type Expected: 12/19/2022 (Approximate), Expires: 2023 [facility] Work Phone: Comment on above: Expected: 12/19/2022 (Approximate), Expi res: 2023 Start: 12-19-2022 End: 2023 Giardia lamblia+Cryptosporidium sp Ag [Presence] in Stool by Immunoassay CRYPTOSPORIDIUM AND GIARDIA ANTIGENS BY EIA Microbiology Routine Diarrhea, unspecified type Expected: 12/19/2022 (Approximate), Expires: 2023 [facility] Work Phone: Comment on above: Expected: 12/19/2022 (Approximate), Expi res: 2023 Start: 12-19-2022 End: 2023 PANC ELASTASE, FECAL PANC ELASTASE, FECAL Lab Routine Diarrhea, unspecified type Expected: 12/19/2022 (Approximate), Expires: 2023 [facility] Work Phone: Comment on above: Expected: 12/19/2022 (Approximate), Expi res: 2023 Start: 11-13-2022 Adult depression screening assessment DEPRESSION SCREENING [facility] Start: 09-22-2022 End: 11-22-2022 Hepatic function 2000 panel - Serum or Plasma HEPATIC FUNCTION PNL Lab Routine Mixed hyperlipidemia Expected: 09/22/2022, Expires: 11/22/2022 [facility] Work Phone: Comment on above: Expected: 09/22/2022, Expires: 3 Start: 09-22-2022 End: 11-22-2022 Lipid 1996 panel - Serum or Plasma LIPID PANEL BASIC Lab Routine Mixed hyperlipidemia Expected: 09/22/2022, Expires: 11/22/2022 [facility] Work Phone: Comment on above: Expected: 09/22/2022, Expires: 3 Start: 09-17-2022 ECHO, Provider: SHERRY TAYLORI ULTRASOUND 01,[id number], Status: Pen, Time: 8:45 AM ECHO, Provider: SHERRY ADOLFO ULTRASOUND 01,[id number], Status: Pen, Time: 8:45 AM [facility] 250 DO Work Phone: Start: 09-12-2022 Colonoscopy COLONOSCOPY [facility] Start: 09-12-2022 COLORECTAL CANCER SCREENING COLORECTAL CANCER SCREENING [facility] Start: 09-08-2022 End: 11-08-2022 Calcium [Mass/volume] in Serum or Plasma CALCIUM TOTAL BLD Lab Routine Hyperparathyroidism (HCC) Expected: 09/08/2022, Expires: 11/08/2022 [facility] Work Phone: Comment on above: Expected: 09/08/2022, Expires: 3 Start: 09-08-2022 End: 11-08-2022 Parathyrin.intact [Mass/volume] in Serum or Plasma PTH INTACT BLD Lab Routine Hyperparathyroidism (HCC) Expected: 09/08/2022, Expires: 11/08/2022 [facility] Work Phone: Comment on above: Expected: 09/08/2022, Expires: 3 Start: 08-22-2022 REST ONLY, Provider: SHERRY CLAUDIAI NUCLEAR 01,[id number], Status: Pen, Time: 10:00 AM REST ONLY, Provider: SHERRY TAYLORI NUCLEAR 01,[id number], Status: Pen, [facility]: 10:00 [facility] Work [facility]: Start: 08-17-2022 ADVANCE DIRECTIVE DISCUSSION ADVANCE DIRECTIVE DISCUSSION [facility] Start: 08-17-2022 DEPRESSION ASSESSMENT DEPRESSION ASSESSMENT [facility] Start: 08-15-2022 STRESSNUC2, Provider: SHERRY CLAUDIAI NUCLEAR 01,[id number], Status: Pen, Time: 10:00 AM STRESSNUC2, Provider: SHERRY HHVI NUCLEAR 01,[id number], Status: Pen, Time: 10:00 AM [facility] 250 DO Work Phone: Start: 06-18-2022 End: 08-18-2022 C reactive protein [Mass/volume] in Serum or Plasma C-REACTIVE PROTEIN (CRP) Lab Routine Systemic lupus erythematosus, unspecified SLE type, unspecified organ involvement status (HCC) Expected: 06/18/2022, Expires: 08/18/2022 [facility] Work Phone: Comment on above: Expected: 06/18/2022, Expires: 3 Start: 06-18-2022 End: 08-18-2022 CBC W Auto Differential panel - Blood CBC + DIFF Lab Routine Systemic lupus erythematosus, unspecified SLE type, unspecified organ involvement status (HCC) Expected: 06/18/2022, Expires: 08/18/2022 [facility] Work Phone: Comment on above: Expected: 06/18/2022, Expires: 3 Start: 06-18-2022 End: 08-18-2022 Complement C3 [Mass/volume] in Serum or Plasma C3 COMPLEMENT BLD Lab Routine Systemic lupus erythematosus, unspecified SLE type, unspecified organ involvement status (HCC) Expected: 06/18/2022, Expires: 08/18/2022 [facility] Work Phone: Comment on above: Expected: 06/18/2022, Expires: 3 Start: 06-18-2022 End: 08-18-2022 Complement C4 [Mass/volume] in Serum or Plasma C4 COMPLEMENT BLD Lab Routine Systemic lupus erythematosus, unspecified SLE type, unspecified organ involvement status (HCC) Expected: 06/18/2022, Expires: 08/18/2022 [facility] Work Phone: Comment on above: Expected: 06/18/2022, Expires: 3 Start: 06-18-2022 End: 08-18-2022 Comprehensive metabolic 2000 panel - Serum or Plasma COMP METABOLIC PANEL Lab Routine Systemic lupus erythematosus, unspecified SLE type, unspecified organ involvement status (HCC) Expected: 06/18/2022, Expires: 08/18/2022 [facility] Work Phone: Comment on above: Expected: 06/18/2022, Expires: 3 Start: 06-18-2022 End: 08-18-2022 Erythrocyte sedimentation rate SED RATE WESTERGREN Lab Routine Systemic lupus erythematosus, unspecified SLE type, unspecified organ involvement status (HCC) Expected: 06/18/2022, Expires: 08/18/2022 [facility] Work Phone: Comment on above: Expected: 06/18/2022, Expires: 3 Start: 06-18-2022 End: 08-18-2022 Protein/Creatinine [Mass Ratio] in Urine PROTEIN CREATININE RATIO Lab Routine Systemic lupus erythematosus, unspecified SLE type, unspecified organ involvement status (HCC) Expected: 06/18/2022, Expires: 08/18/2022 [facility] Work Phone: Comment on above: Expected: 06/18/2022, Expires: 3 Start: 06-18-2022 End: 08-18-2022 Urinalysis complete panel - Urine URINALYSIS, WITH MICROSCOPIC Lab Routine Systemic lupus erythematosus, unspecified SLE type, unspecified organ involvement status (HCC) Expected: 06/18/2022, Expires: 08/18/2022 [facility] Work Phone: Comment on above: Expected: 06/18/2022, Expires: 3 Start: 06-11-2022 End: 08-11-2022 Comprehensive metabolic 2000 panel - Serum or Plasma COMP METABOLIC PANEL Lab Routine Hyperparathyroid (HCC) Expected: 06/11/2022, Expires: 08/11/2022 [facility] Work Phone: Comment on above: Expected: 06/11/2022, Expires: 2 Start: 06-11-2022 End: 08-11-2022 Parathyrin.intact [Mass/volume] in Serum or Plasma PTH INTACT BLD Lab Routine Hyperparathyroid (HCC) Expected: 06/11/2022, Expires: 08/11/2022 [facility] Work Phone: Comment on above: Expected: 06/11/2022, Expires: 2 Start: 04-18-2022 End: 06-18-2022 CROSS-LINK N-TELOPEP [facility] Work Phone: Comment on above: Expected: 04/18/2022 (Approximate), Expi res: 06/18/2022 Start: 04-17-2022 Influenza vaccination INFLUENZA (#1) [facility] Start: 03-20-2022 End: 05-20-2022 Calcium [Mass/volume] in Serum or Plasma CALCIUM TOTAL BLD Lab Routine 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) High risk medication use Expected: 03/20/2022, Expires: 05/20/2022 [facility] Work Phone: Comment on above: Expected: 03/20/2022, Expires: Start: 02-07-2022 MRI of head MR head/brain wo con [facility] Start: 02-07-2022 Bacteria identified in Urine by Culture Urine Culture [facility] Start: 12-09-2021 End: 02-08-2022 DNA double strand Ab [Units/volume] in Serum by Immunoassay [facility] Work Phone: Comment on above: Expected: 12/09/2021 (Approximate), Expi res: 02/08/2022 Start: 12-09-2021 End: 02-08-2022 Protein/Creatinine [Mass Ratio] in Urine [facility] Work Phone: Comment on above: Expected: 12/09/2021 (Approximate), Expi res: 02/08/2022 Start: 12-09-2021 End: 02-08-2022 Urinalysis complete panel - Urine [facility] Work Phone: Comment on above: Expected: 12/09/2021 (Approximate), Expi res: 02/08/2022 Start: 09-17-2021 COVID-19 VACCINE (3 - Booster for Iris series) COVID-19 VACCINE (3 - Booster for Iris series) [facility] Start: 08-17-2021 ADVANCE DIRECTIVE DISCUSSION ADVANCE DIRECTIVE DISCUSSION [facility] Start: 08-17-2021 DEPRESSION ASSESSMENT DEPRESSION ASSESSMENT [facility] Start: 05-27-2021 PNEUMOCOCCAL: 65+ (3 - PPSV23 if available, else PCV20) PNEUMOCOCCAL: 65+ (3 - PPSV23 if available, else PCV20) [facility] Start: 05-27-2021 PNEUMOCOCCAL: 65+ (4 - PPSV23 if available, else PCV20) PNEUMOCOCCAL: 65+ (4 - PPSV23 if available, else PCV20) [facility] Start: 05-27-2021 PNEUMOCOCCAL: 65+ (4 - PPSV23 or PCV20) PNEUMOCOCCAL: 65+ (4 - PPSV23 or PCV20) [facility] Start: 05-27-2021 PNEUMOVAX AGE 65 AND OVER WITH 5YR LOOKBACK (#1) PNEUMOVAX AGE 65 AND OVER WITH 5YR LOOKBACK (#1) [facility] Start: 2016 HEPATITIS B (1 of 3 - Risk 3-dose series) HEPATITIS B (1 of 3 - Risk 3-dose series) [facility] Start: 2016 Hepatitis B Vaccine (1 of 3 - Risk 3-dose series) Hepatitis B Vaccine (1 of 3 - Risk 3-dose series) [facility] Start: 2016 RSV Vaccine (1 - 1-dose 60+ series) RSV Vaccine (1 - 1-dose 60+ series) [facility] Start: 02-17-2001 COLOGUARD (FIT-DNA) COLOGUARD (FIT-DNA) [facility] Start: 02-17-[address] COLONOGRAPHY [facility] Start: 02-17-2001 FECAL OCCULT BLOOD FECAL OCCULT BLOOD [facility] Start: 02-17-2001 SIGMOIDOSCOPY SIGMOIDOSCOPY [facility] Start: 1996 Mammography MAMMOGRAM [facility] Start: 02-17-1975 DTaP,Tdap and Td Vaccines (1 - Tdap) DTaP,Tdap and Td Vaccines (1 - Tdap) [facility] Start: 02-17-1975 HEPATITIS A (1 of 2 - Risk 2-dose series) HEPATITIS A (1 of 2 - Risk 2-dose series) [facility] Start: 02-17-1975 Hepatitis A Vaccine (1 of 2 - Risk 2-dose series) Hepatitis A Vaccine (1 of 2 - Risk 2-dose series) [facility] Start: 02-17-1975 HEPATITIS B (1 of 3 - Risk 3-dose series) HEPATITIS B (1 of 3 - Risk 3-dose series) [facility] Start: 02-17-1975 Urine microalbumin profile [facility] Start: 02-17-1974 Adult BMI Follow Up Plan Adult BMI Follow Up Plan [facility] Start: 02-17-1974 ANNUAL PCP TEAM CHRONIC DISEASE VISIT ANNUAL PCP TEAM CHRONIC DISEASE VISIT [facility] Start: 02-17-1974 BP CONTROLLED (<130/80) BP CONTROLLED (<130/80) [facility] Start: 02-17-1974 HIV SCREENING HIV SCREENING [facility] Start: 02-17-1974 MMR (1 of 2 - Risk 2-dose series) MMR (1 of 2 - Risk 2-dose series) [facility] Start: 02-17-1974 MMR Vaccine (1 of 2 - Risk 2-dose series) MMR Vaccine (1 of 2 - Risk 2-dose series) [facility] Start: 02-17-1966 Meningococcal B Vaccine: Consider Based On Risk (1 of 4 - Increased Risk) Meningococcal B Vaccine: Consider Based On Risk (1 of 4 - Increased Risk) [facility] Start: 02-17-1966 MENINGOCOCCAL B: Consider based on risk (1 of 4 - Increased Risk Bexsero 2-dose series) MENINGOCOCCAL B: Consider based on risk (1 of 4 - Increased Risk Bexsero 2-dose series) [facility] Start: 02-17-1966 MENINGOCOCCAL B: Consider based on risk (1 of 4 - Increased Risk) MENINGOCOCCAL B: Consider based on risk (1 of 4 - Increased Risk) [facility] Start: 02-17-1957 HEPATITIS A (1 of 2 - Risk 2-dose series) HEPATITIS A (1 of 2 - Risk 2-dose series) [facility] Bacteria identified in Urine by Culture [facility] Work Phone: End: 03-13-2023 C reactive protein [Mass/volume] in Serum or Plasma C-REACTIVE PROTEIN (CRP) Lab Routine Membranous lupus nephritis syndrome (HCC) High risk medication use Systemic lupus erythematosus, unspecified SLE type, unspecified organ involvement status (HCC) Every 4 months for 6 Occurrences starting 03/13/2022 until 03/13/2023, 1 completed [facility] Work Phone: Comment on above: Every 4 months for 6 Occurrences startin g 03/13/2022 until 03/13/2023, 1 completed CALCIUM 24 HR URINE CALCIUM 24 H R URINE Lab Routine Osteopenia, unspecified location Vitamin D deficiency disease Serum calcium elevated 04/22/2022 8:30 AM EDT [facility] Work Phone: End: 04-26-2023 Cardiac mri for velocity flow mapping MRI CARDIAC VELOCITY FLOW MAP Radiology Routine Hypertrophic obstructive cardiomyopathy (HCC) 1 Occurrences starting 03/27/2022 until 04/26/2023 [facility] Work Phone: Comment on above: 1 Occurrences starting 03/27/2022 until 04/26/2023 End: 04-26-2023 Cardiac mri w/wo contrast & further seq MRI CARDIAC MORPH FUNC WO/W IVCON Radiology Routine Hypertrophic obstructive cardiomyopathy (HCC) 1 Occurrences starting 03/27/2022 until 04/26/2023 [facility] Work Phone: Comment on above: 1 Occurrences starting 03/27/2022 until 04/26/2023 End: 03-13-2023 CBC W Auto Differential panel - Blood CBC + DIFF Lab Routine Membranous lupus nephritis syndrome (HCC) High risk medication use Systemic lupus erythematosus, unspecified SLE type, unspecified organ involvement status ([facility]) Every 4 months for 6 Occurrences starting 03/13/2022 until 03/13/2023, 1 completed [facility] Work Phone: Comment on above: Every 4 months for 6 Occurrences startin g 03/13/2022 until 03/13/2023, 1 completed Clostridioides diffi cile toxin genes [Presence] in Stool by RAVIN with probe detection C. DIFFICILE PCR Lab Routine Diarrhea, unspecified type Ordered: 02/21/2022 [facility] Work Phone: Comment on above: Ordered: 02/21/2022 End: 02-19-2024 COLONOSCOPY DIAGNOSTIC COLONOSCOPY DIAGNOSTIC Endoscopy Routine IBD (inflammatory bowel disease) 1 Occurrences starting 2023 until 02/19/2024 [facility] Work Phone: Comment on above: 1 Occurrences starting 2023 until 02/19/2024 End: 03-13-2023 Complement C3 [Mass/volume] in Serum or Plasma C3 COMPLEMENT BLD Lab Routine Membranous lupus nephritis syndrome (HCC) High risk medication use Systemic lupus erythematosus, unspecified SLE type, unspecified organ involvement status (HCC) Every 4 months for 6 Occurrences starting 03/13/2022 until 03/13/2023, 1 completed [facility] Work Phone: Comment on above: Every 4 months for 6 Occurrences startin g 03/13/2022 until 03/13/2023, 1 completed End: 03-13-2023 Complement C4 [Mass/volume] in Serum or Plasma C4 COMPLEMENT BLD Lab Routine Membranous lupus nephritis syndrome (HCC) High risk medication use Systemic lupus erythematosus, unspecified SLE type, unspecified organ involvement status (HCC) Every 4 months for 6 Occurrences starting 03/13/2022 until 03/13/2023, 1 completed [facility] Work Phone: Comment on above: Every 4 months for 6 Occurrences startin g 03/13/2022 until 03/13/2023, 1 completed End: 03-13-2023 Comprehensive metabolic 2000 panel - Serum or Plasma COMP METABOLIC PANEL Lab Routine Membranous lupus nephritis syndrome (HCC) High risk medication use Systemic lupus erythematosus, unspecified SLE type, unspecified organ involvement status (HCC) Every 4 months for 6 Occurrences starting 03/13/2022 until 03/13/2023, 1 completed [facility] Work Phone: Comment on above: Every 4 months for 6 Occurrences startin g 03/13/2022 until 03/13/2023, 1 completed CREATININE 24 HR UR CREATININE 2 4 HR UR Lab Routine Osteopenia, unspecified location Vitamin D deficiency disease Serum calcium elevated 04/22/2022 8:30 AM EDT [facility] Work Phone: Dxa bone density vinicius dy 1/> sites axial skel DXA-AXIAL SKELETON Radiology Routine Asymptomatic postmenopausal status 03/13/2022 3:21 PM EDT [facility] Work Phone: End: 03-27-2023 ECG COMPLETE ECG COMPLETE ECG Routine Hypertrophic obstructive cardiomyopathy (HCC) 1 Occurrences starting 03/27/2022 until 03/27/2023 [facility] Work Phone: Comment on above: 1 Occurrences starting 03/27/2022 until 03/27/2023 End: 03-27-2023 Echocardiography ECHO Cardiology Routine Hypertrophic obstructive cardiomyopathy ([facility]) 1 Occurrences starting 03/27/2022 until 03/27/2023 [facility] Work Phone: Comment on above: 1 Occurrences starting 03/27/2022 until 03/27/2023 ENTERIC BACTERIAL PA ANA BY PCR ENTERIC BACTERIAL PANEL BY PCR Lab Routine Diarrhea, unspecified type Ordered: 02/21/2022 [facility] Work Phone: Comment on above: Ordered: 02/21/2022 End: 03-13-2023 Erythrocyte sedimentation rate SED RATE WESTERGREN Lab Routine Membranous lupus nephritis syndrome ([facility]) High risk medication use Systemic lupus erythematosus, unspecified SLE type, unspecified organ involvement status (HCC) Every 4 months for 6 Occurrences starting 03/13/2022 until 03/13/2023, 1 completed [facility] Work Phone: Comment on above: Every 4 months for 6 Occurrences startin g 03/13/2022 until 03/13/2023, 1 completed Giardia lamblia+Cryptosporidium sp Ag [Presence] in Stool by Immunoassay CRYPTOSPORIDIUM AND GIARDIA ANTIGENS BY EIA Microbiology Routine Diarrhea, unspecified type Ordered: 02/21/2022 [facility] Work Phone: Comment on above: Ordered: 02/21/2022 End: 07-31-2023 Parathyroid imaging w/tomographic spect & ct NM PARATHYROID W SPECT/CT Radiology Routine Hyperparathyroidism ([facility]) 1 Occurrences starting 07/01/2022 until 07/31/2023 [facility] Work Phone: Comment on above: 1 Occurrences starting 07/01/2022 until 07/31/2023 Patient Education Urinary Tract Infection, Adult (DC) Cephalexin [facility] Work Phone: Patient referral [facility] Work Phone: SARS-CoV-2 (COVID-19 ) N gene [Presence] in Respiratory specimen by RAVIN with probe detection [facility] Work Phone: SARS-CoV-2 (COVID-19 ) RNA [Presence] in Respiratory specimen by RAVIN with probe detection PRE-PROCEDURE & PRE-OPERATIVE COVID Microbiology Routine Encounter for prophylactic measures, unspecified Ordered: 03/06/2022 [facility] Work Phone: Comment on above: Ordered: 03/06/2022 SURGICAL PATHOLOGY [facility] Work Phone: Comment on above: Release Upon Ordering for 1 Occurrences starting 04/02/2023, 1 completed End: 03-13-2023 Urinalysis complete panel - Urine URINALYSIS, WITH MICROSCOPIC Lab Routine Membranous lupus nephritis syndrome (HCC) High risk medication use Systemic lupus erythematosus, unspecified SLE type, unspecified organ involvement status (HCC) Every 4 months for 6 Occurrences starting 03/13/2022 until 03/13/2023 [facility] Work Phone: Comment on above: Every 4 months for 6 Occurrences startin g 03/13/2022 until 03/13/2023 US THYROID/PARATHYRO ID (POC) ENDO USE ONLY US THYROID/PARATHYROID (POC) ENDO USE ONLY Imaging Diagnostic Routine Primary hyperparathyroidism (HCC) Ordered: 07/07/2022 [facility] Work Phone: Comment on above: Ordered: 07/07/2022 End: 07-31-2024 XR FOOT GENERAL 3V AP/LAT/OBL LEFT XR FOOT GENERAL 3V AP/LAT/OBL LEFT Radiology Routine Pain in left foot 1 Occurrences starting 07/02/2023 until 07/31/2024 [facility] Work Phone: Comment on above: 1 Occurrences starting 07/02/2023 until 07/31/2024 [facility] Immunizations Immunization Date Immunization Notes Care Provider Jacobo nolasco 02-04-2023 pneumococcal Conjuga te, unspecified formulation Naedge Bianchijohn DO Work Phone: [facility] Work Phone: 02-04-2023 pneumococcal (PCV20) vaccine, 20 valent (PREVNAR 20) Nadege Bianchijohn DO Work Phone: [facility] 05-16-2022 influenza, high-dose , quadrivalent vaccine (FLUZONE HIGH DOSE QUADRIVALENT) [facility] 2 Work Phone: [facility] 05-16-2022 influenza virus vaccine, unspecified formulation Horace Harrell PA-C Work Phone: [facility] 07-23-2021 Moderna COVID-19 Vaccine 100 MCG/0.5ML Intramuscular Suspension Wojciech G [employer] Work Phone: [facility] 250 DO Work Phone: 05-16-2021 influenza, high-dose , quadrivalent vaccine (FLUZONE HIGH DOSE QUADRIVALENT) Dione Reinoso MD Work Phone: [facility] 10-24-2020 Iris COVID-19 Vaccine 0.5 ML Intramuscular Suspension Wojciech G Furlong Work Phone: [facility] 250 DO Work Phone: 07-03-2020 influenza, injectabl e, quadrivalent, contains preservative Dione Reinoso MD Work Phone: [facility] 04-02-2020 zoster vaccine recombinant Dione Reinoso MD Work Phone: [facility] 10-21-2019 zoster vaccine recombinant Dione Reinoso MD Work Phone: [facility] 06-20-2019 influenza, injectabl e, quadrivalent, preservative free Dione Reinoso MD Work Phone: [facility] Work Phone: 06-17-2019 influenza, seasonal, injectable Wojciech Furlong DO Work Phone: [facility] 05-19-2018 influenza, injectabl e, quadrivalent, contains preservative Dione Reinoso MD Work Phone: [facility] 05-11-2017 influenza, injectabl e, quadrivalent, contains preservative Dione Reinoso MD Work Phone: [facility] 05-29-2016 influenza virus vaccine, unspecified formulation Wojciech Furlong DO Work Phone: [facility] 05-29-2016 influenza, injectabl e, quadrivalent, preservative free Nadege Hawkins DO Work Phone: [facility] 05-29-2016 influenza, seasonal, injectable, preservative free Dione Reinoso MD Work Phone: [facility] 05-27-2016 pneumococcal polysaccharide vaccine, 23 valent Dione Reinoso MD Work Phone: [facility] 09-14-2015 pneumococcal conjuga te vaccine, 13 valent Dione Reinoso MD Work Phone: [facility] Work Phone: 09-14-2015 pneumococcal polysaccharide vaccine, 23 valmana Reinoso MD Work Phone: [facility] Work Phone: 07-31-2015 influenza virus vaccine, unspecified formulation Wojciech Furlong DO Work Phone: [facility] 07-31-2015 influenza, seasonal, injectable, preservative free Dione Reinoso MD Work Phone: [facility] Work Phone: 05-24-2014 influenza, injectabl e, quadrivalent, preservative free Dione Reinoso MD Work Phone: [facility] Work Phone: 05-24-2014 influenza, seasonal, injectable Dione Reinoso MD Work Phone: [facility] 06-03-2013 influenza virus vaccine, unspecified formulation Dione Reinoso MD Work Phone: [facility] 05-11-2012 influenza virus vaccine, unspecified formulation Dione Reinoso MD Work Phone: [facility] Work Phone: 07-16-2011 influenza virus vaccine, unspecified formulation Dione Reinoso MD Work Phone: [facility] 05-02-2010 influenza virus vaccine, unspecified formulation Doine Reinoso MD Work Phone: [facility] 05-02-2010 pneumococcal polysaccharide vaccine, 23 valent Dione Reinoso MD Work Phone: [facility] Payers Date Payer Category Payer Self-pay [id number] 2021 Unknown [id number] 2020 Unknown [employer] SUPPLEMENT [id number] 2020-Present [phone] [id number] [place] [address] Indemnity [id number]. [id number] 2020 Unknown [id number]. 1.13.159.2. [id number] 2014 Medicare [id number]. [id number] 2014 Medicare [id number]. 1.13.159.2. [id number] 1959 Medicare [id number] 1959 Unknown [id number] 1956 Unknown [id number] 2.16.840.1.812793.3.579.2. 355 1956 Unknown [id number] 2.16.840.1.081066.3.579.2. 355 1956 Unknown [id number] 2.16.840.1.594267.3.579.2. 356 1956 Unknown [id number] 2.16.840.1.815635.3.579.2. 1068 1956 Unknown [id number] 2.16.840.1.687192.3.579.2. 1068 1956 Unknown [id number] 2.16.840.1.992593.3.579.2. 1068 1956 Unknown [id number] 2.16.840.1.957111.3.579.2. 593 1956 Unknown [id number] 2.16.840.1.271432.3.579.2. 593 1956 Unknown [id number] 2.16.840.1.407029.3.579.2. 593 1956 Unknown [id number] 2.16.840.1.420463.3.579.2. 1259 1956 Unknown [id number] 2.16.840.1.649058.3.579.2. 1259 1956 Unknown [id number] 2.16.840.1.787538.3.579.2. 1286 Medicare Medicare-OP No Part A [id number] Private Health Insurance [employer] [facility] PFFS [id number] Unknown [id number] Unknown [id number] 2.16.840.1.718261.3.579.2. 531 Unknown [id number] 2.16.840.1.813278.3.579.2. 531 Social History Date Type Detail Facility Start: 02-07-2022 End: 09-10-2022 Tobacco smoking status NHIS Never smoked tobacco [facility] Start: 10-29-2021 End: 04-15-2023 Alcohol intake Current drinker of alcohol (finding) [facility] Start: 07-11-2020 History SDOH Alcohol Frequency 2 [facility] Start: 12-06-2020 History SDOH Alcohol Comment very rare [facility] Start: 1955 Sex Assigned At Female [facility] Work Phone: Start: 08-13-2021 End: 07-21-2022 Exposure to SARS-CoV-2 (event) Not sure [facility] Start: 09-02-2017 End: 09-10-2022 Tobacco use and exposure Smokeless tobacco non-user [facility] Start: 07-11-2020 End: 07-20-2022 No illicit drug use No illicit drug use [facility] Work Phone: Start: 07-11-2020 End: 07-20-2022 Alcohol Use Disorder Identification Test - Consumption [AUDIT-C] [facility] Work Phone: How often to you hav e a drink containing alcohol? Monthly or less [facility] Work Phone: Average Number of Drinks Not on file [facility] Start: 11-24-2018 Gender identity Identifies as female gender (finding) [facility] Work Phone: Start: 11-24-2018 Sexual orientation Heterosexual (finding) [facility] Work Phone: Start: 03-18-2019 Alcohol Comment seldom [facility] Start: 07-27-2023 End: 09-01-2023 Alcohol intake Current non-drinker of alcohol (finding) [facility] Do you belong to any clubs or organizations such as anabaptism groups, unions, fraternal or athletic groups, or school groups? No [facility] Are you now , , , , never or living with a partner? [facility] How many standard dr inks containing alcohol do you have on a typical day? 1 or 2 [facility] How often do you hav e 6 or more drinks on 1 occasion? Never [facility] Do you feel stress - tense, restless, nervous, or anxious, or unable to sleep at night because your mind is troubled all the time - these days [OSQ] Only a little [facility] Start: 07-20-2022 Education 12 [facility] Start: 1955 Sex Assigned At Not on file [facility] Medical Equipment Procedure Code Equipment Code Equipment Origin al Text Equipment Identifier Dates Trident X3 Polyethylene Insert 0deg 36mm Sz E [id number] Start: 12-18-2020 Stem Accolade Ii 5 132d Femoral - [id number] Start: 12-18-2020 Shell Trident Ii 52mm E Tritanium Acetabular 5 Screw Hole Cluster Sterile - [id number] Start: 12-18-2020 Head V40 36mm 0m m Offset Taper Biolox Delta Femoral Hip - [id number] Start: 12-18-2020 Plate 3d Lck Ginna iax Bn Rt Ft - [id number] Start: 04-03-2014 Screw Bn 4mm 32m m Autofx - [id number] Start: 04-03-2014 Screw 3.0x38 Aut ofix - [id number] Start: 04-03-2014 Screw Bn 3.5mm 1 6mm Variax Ft - [id number] Start: 04-03-2014 Screw Bn 3.5mm 1 4mm Variax Ft - [id number] Start: 04-03-2014 Screw Bn 3.5mm 1 2mm Variax Ft - [id number] Start: 04-03-2014 Screw Trident Ii 6.5mm 25mm Bone Low Profile Hexagonal Sterile - [id number] Start: 12-18-2020 Wire Fix .062in 9in Krsh Ss - [id number] Start: 04-03-2014 Goals Date Patient Goal Desired Activity /State Functional Status Date Assessment Result Facility 06-26-2022 Functional status Patient at Baseline [facility] Work Phone: 02-07-2022 Functional status Patient Not at Baseline [facility] Work Phone: Mental Status Date Assessment Result Facility 02-09-2022 Cognitive function Cognitive Sta tus Patient at Baseline [facility] Work Phone: 02-07-2022 Cognitive function Cognitive Sta tus Patient Not at Baseline [facility] Work Phone: Clinical Notes 10-14-2017 to 09-01-2023 Jania Saeed, RELATIONS LIAISON-WAREHOUSE MANAGER - 09/01/2023 1:00 PM ESTTelephone Encounter - Lisa Ramos - 07/20/2023 2:59 PM ESTTelephone Encounter - Olga Amado - 07/07/2023 3:24 PM ESTPatient Instructions Note Date & Type Note Facility 09-01-2023 History of Present illness Narrative Subjective Patient ID: Jesus Wolf is a 68 y.o. female. Worsening cough for a more than a week No unusual fatigue but she is getting more PND and runny nose Headache but minimal sinus pressure Appetite ok taking fluids ok Hoarseness present Taking mucinex She did have an episode of postmenopausal bleeding in July the ultrasound from ER didn't reveal anything unusual, she saw Dr Young on f/u he thought everything looked fine on f/u but he is going to do a f/u D&C just to make sure on 09/25 The following portions of the patient's history were reviewed and updated as appropriate: allergies, current medications, past family history, past medical history, past social history, past surgical history, problem list, and medication reconciliation was completed including current medication and post discharge medication. Review of Systems Constitutional: Negative for activity change, chills, fatigue and fever. HENT: Positive for congestion, postnasal drip, rhinorrhea and voice change. Negative for ear pain. Eyes: Negative. Respiratory: Positive for cough. Cardiovascular: Negative. Gastrointestinal: Negative. Endocrine: Negative. Genitourinary: Negative. Musculoskeletal: Positive for arthralgias. Allergic/Immunologic: Negative. Neurological: Negative. Hematological: Negative. Psychiatric/Behavioral: Negative. Objective Physical Exam Vitals and nursing note reviewed. HENT: Right Ear: Tympanic membrane, ear canal and external ear normal. Left Ear: Tympanic membrane, ear canal and external ear normal. Nose: Congestion and rhinorrhea present. Mouth/Throat: Mouth: Mucous membranes are moist. Eyes: Conjunctiva/sclera: Conjunctivae normal. Cardiovascular: Rate and Rhythm: Normal rate and regular rhythm. Heart sounds: Normal heart sounds. No murmur heard. Pulmonary: Effort: Pulmonary effort is normal. Breath sounds: Normal breath sounds. Musculoskeletal: Cervical back: Neck supple. Right lower leg: No edema. Left lower leg: No edema. Lymphadenopathy: Cervical: No cervical adenopathy. Skin: General: Skin is warm and dry. Capillary Refill: Capillary refill takes less than 2 seconds. Neurological: Mental Status: She is alert and oriented to person, place, and time. Psychiatric: Thought Content: Thought content normal. Judgment: Judgment normal. Assessment/Plan 1. Viral upper respiratory tract infection She has cough but clear lungs sounds, the congestion and symptoms appear upper respiratory, will manage symptoms at this time with cough medication, mucinex and prednisone, call if worse in any way - pyrilamine-dextromethorphan 7.5-7.5 mg/5 mL liquid; Take 10 mL by mouth 4 (four) times a day as needed (cough., congestion). Dispense: 473 mL; Refill: 1 - predniSONE (DELTASONE) 20 mg tablet; Take 1 tablet (20 mg total) by mouth in the morning. Dispense: 7 tablet; Refill: 0 EMELY Workman 09/01/23 1350 documented in this encounter [facility] 08-03-2023 Note HNO ID: [id number] Author: Angie See DPM Service: Podiatry Author Type: Resident Type: Progress Notes Filed: 08/03/2023 12:25 PM Note Text: Attestation signed by Dalila Cervantes DPM at 08/06/2023 2:39 PM Dalila Cervantes DPM PODIATRIC PRE-OPERATIVE NOTE SERVICE DATE: 08/02/2023 SERVICE TIME: 7:33 PM DIAGNOSIS:Osteoarthritis of bilateral feet PROCEDURE(S): Fluoroscopic guidance for needle placement bilateral feet. Intra-articular local anesthetic cortisone injections second through fourth tarsometatarsal joints both feet Consent on chart: Yes LABS: CBC: WBC 6.47 04/22/2023 Hemoglobin 12.3 04/22/2023 Hematocrit 37.0 04/22/2023 Platelet Count 248 04/22/2023 CMP: Sodium 142 04/22/2023 Potassium 5.3 04/22/2023 BUN 28 04/22/2023 Creatinine 1.24 04/22/2023 Glucose 98 04/22/2023 COAGS: PT INR 1.0 12/06/2020 URINALYSIS: Ketones, Urine Negative 04/22/2023 Nitrites Negative 04/22/2023 Specific [place], Ur 1.012 04/22/2023 Protein, Urine Negative 04/22/2023 Leukest 25 Bailey/uL 04/22/2023 Leukocytes 0-5 /HPF 04/22/2023 Bacteria Rare 02/04/2023 Type AND screen: Yes Medical Clearance: Yes CXR/EKG: Yes Medications/Preop Antibiotics: Ancef ALLERGIES Allergen Reactions Dofetilide Other: See Comments, Anaphylaxis V-tach Iodinated Contrast * Other: See Comments (Deep seafood) hot flashes, sweating. Other reaction(s): over heated/nausea Sulfa (Sulfonamide * Vomiting total body swelling and kidney shut down, body aches and rash Contrast Dye Other: See Comments (Deep seafood) hot flashes, sweating. Iodine Other: See Comments Hot flashes and sweating Codeine Other: See Comments severe headaches Compazine [Prochlor* Other: See Comments loss control of left side of face Tetnus [Tetanus Vac* Other: See Comments red spot in area of shot Surgical site identified: Yes NPO: Yes IV Fluids: Yes Risks and benefits, complications, treatment options, expected outcome and rehabilitation explained, patient understands. All questions were entertained and answered. Patient wishes to proceed with above procedure(s). SIGNATURE: Angie See DPM PATIENT NAME: Jesus Wolf DATE: August 02, 2023 TIME: 7:33 PM [facility] 07-20-2023 Miscellaneous Notes Spoke to patient and she is scheduled for bilateral cortisone injection at [facility] for 08/03/23 documented in this encounter [facility] 07-07-2023 Miscellaneous Notes [facility] requesting call back to schedule (surgery)with Dr. Cervantes. Left direct number to return call. [phone] documented in this encounter [facility] 07-02-2023 Note HNO ID: [id number] Author: Beverly Franco DPM Service: ? Author Type: Physician Type: Progress Notes Filed: 07/02/2023 12:08 PM Note Text: SERVICE DATE: July 02, 2023 PCP: Wojciech Treviño MD, DO Subjective Patient ID: Jesus is a 68 year old female. Patient presents today with complaint of pain in her left midfoot on the medial side which started several weeks ago while she is in [place] at the [employer] and on her feet an extensive amount of time. She also is concerned about changes at the tip of her left fifth toe Chief Complaint: Patient presents with: Foot Pain (Midfoot): left PAIN EVALUATION 07/02/2023 1025 Pain Level: 7 Pain Location: Foot-Left Description: Sharp Duration Units: Weeks Frequency: Continuous Comments: custom inserts HPI patient has had ulceration of the right second toe which has been resolved with wound care and topical treatment, she has history of significant midfoot osteoarthritic changes and has had image guided injections in the past. She is wearing a pair of old orthotics Review of Systems ACTIVE PROBLEM LIST Edema Proteinuria Essential Hypertension Atrial Fibrillation (Hcc) Membranous Glomerulonephritis Vitamin D Deficiency Sle (Systemic Lupus Erythematosus) (Hcc) Fibromyalgia Sleep Apnea Encounter for Long-Term (Current) Use of Other High-Risk Medications Osteoarthritis of ankle and foot HALLUX VALGUS ACQUIRED Other Hammer Toe (Acquired) Enthesopathy of Ankle and Tarsus, Unspecified Lesion of Plantar Nerve Neuralgia, Neuritis, and Radiculitis, Unspecified Foot Pain, Left Other Synovitis and Tenosynovitis, Unspecified Ankle and Foot Osteoarthrosis of Ankle and Foot, Left Synovitis of Left Foot Synovitis of Right Foot Vocal Cord Edema Primary Osteoarthritis of Both Feet Synovitis of Foot Conjunctivitis Keratopathy Obesity, Class III, BMI >= 40 Hypothyroidism Chronic Congestive Heart Failure (Hcc) Status Post Right Hip Replacement S/P Total Hip Arthroplasty Mixed Hyperlipidemia Obesity, Class II, Bmi 35-39.9 Thoracic Ascending Aortic Aneurysm (Hcc) Hypercalcemia Hyperparathyroid (Hcc) Thin Blood (Hcc) PAST MEDICAL HISTORY Diagnosis Date Arrhythmia Atrial fibrillation (HCC) on coumadin Herniated intervertebral disk HTN (hypertension) Hyperlipemia Kidney disease MONI (obstructive sleep apnea) no longer using CPAP since 60 lb weight loss Other acute pancreatitis with uninfected necrosis SLE (systemic lupus erythematosus) (HCC) Sleep apnea 07/29/2012 PAST SURGICAL HISTORY Procedure Laterality Date APPENDECTOMY CARPAL TUNNEL RIGHT WRIST surgical correction COLONOSCOPY 05/10/2019 [facility] COLONOSCOPY GEN ANES 07/23/2020 Dr. Reinoso/Diverticulosis/Hemorrhoids/ Ulcerative Colitis/Rpt in 2 yrs. COLONOSCOPY SCREENING 03/2023 EGD EUS 01/11/2020 [facility] LASIK Right prior to 1999 MRI PANC/JEANIE WO/W IVCON 12/20/2019 OVARIAN CYSTECTOMY PAST SURGICAL HISTORY OF 07/2013 bilateral foot procedure, Sherry PAST SURGICAL HISTORY OF Ablation X2 TONSILLECTOMY HX FAMILY HISTORY Problem Relation Age of Onset Alzheimer's Disease Father Hypertension Father Cataract Mother Hypertension Mother Colon Cancer Mother Cataract Sister Hypertension Sister Colon Cancer Paternal Uncle Social History Tobacco Use Smoking status: Never Smokeless tobacco: Never Vaping Use Vaping Use: Never used Substance Use Topics Alcohol use: Yes Comment: very rare Drug use: No Comment: denies tx for drug/alcohol abuse in the past. ALLERGIES Allergen Reactions Dofetilide Other: See Comments, Anaphylaxis V-tach Iodinated Contrast * Other: See Comments (Deep seafood) hot flashes, sweating. Other reaction(s): over heated/nausea Sulfa (Sulfonamide * Vomiting total body swelling and kidney shut down, body aches and rash Contrast Dye Other: See Comments (Deep seafood) hot flashes, sweating. Iodine Other: See Comments Hot flashes and sweating Codeine Other: See Comments severe headaches Compazine [Prochlor* Other: See Comments loss control of left side of face Tetnus [Tetanus Vac* Other: See Comments red spot in area of shot MEDICATIONS: pantoprazole DR (PROTONIX) 40 mg tablet take 1 tablet by mouth twice a day amoxicillin (AMOXIL) 500 mg capsule Take 4 tablets one hour prior to dental procedure colestipol (COLESTID) 1 gram tablet TAKE 2 TABLETS BY MOUTH TWICE A DAY mesalamine (CANASA) 1,000 mg suppository 1 Suppository by RECTAL route daily at bedtime. Mesalamine (LIALDA) 1.2 gram EC tablet take 4 tablets by mouth once daily hydrOXYchloroQUINE (PLAQUENIL) 200 mg tablet take 1 tablet by mouth twice a day with food metoprolol succinate ER (TOPROL XL) 50 mg 24 hr tablet TAKE 1 TABLET BY MOUTH IN THE MORNING AND 2 TABLETS BY MOUTH IN THE EVENING ELIQUIS 5 mg tab(s) Take 5 mg by mo (more content not included)... [facility] 07-02-2023 Note HNO ID: [id number] Author: Pinky Loya RT(R) Service: Radiology Author Type: Technologist Type: Progress Notes Filed: 07/02/2023 10:37 AM Note Text: Radiology Service Progress Note PATIENT NAME: Jesus Wolf DATE OF SERVICE: July 02, 2023 TIME: 10:27 AM PATIENT IDENTITY VERIFICATION COMPLETED USING TWO (2) IDENTIFIERS: Name and Date of confirmed by patient verbally. FALL SCREENING: Has the patient had 2 falls in the last year or 1 fall with injury or currently using an Ambulatory Assistive Device (Walker, Cane, Wheelchair, Crutches, etc.)? No PATIENT GENDER DATA: Female. status: : No status: NO. PATIENT RELEVANT IMPLANT DATA REVIEWED: Not Applicable RADIOLOGY DEPARTMENT: General X-ray: Exam(s) Completed: Lower Extremity X-Ray(s): Foot, Bilateral and Wt. Bearing PERIPHERAL IV DATA: Not applicable SIGNED BY: LEONORA OSWALDRT AND RT Ale(R) July 02, 2023 10:27 AM [facility] 07-02-2023 History of Present illness Narrative SERVICE DATE: July 02, 2023 PCP: Wojciech Treviño MD, DO Subjective Patient ID: Jesus is a 68 year old female. Patient presents today with complaint of pain in her left midfoot on the medial side which started several weeks ago while she is in [place] at the [employer] and on her feet an extensive amount of time. She also is concerned about changes at the tip of her left fifth toe Chief Complaint: Patient presents with: Foot Pain (Midfoot): left PAIN EVALUATION 07/02/2023 1025 Pain Level: 7 Pain Location: Foot-Left Description: Sharp Duration Units: Weeks Frequency: Continuous Comments: custom inserts HPI patient has had ulceration of the right second toe which has been resolved with wound care and topical treatment, she has history of significant midfoot osteoarthritic changes and has had image guided injections in the past. She is wearing a pair of old orthotics Review of Systems ACTIVE PROBLEM LIST Edema Proteinuria Essential Hypertension Atrial Fibrillation (Hcc) Membranous Glomerulonephritis Vitamin D Deficiency Sle (Systemic Lupus Erythematosus) (Hcc) Fibromyalgia Sleep Apnea Encounter for Long-Term (Current) Use of Other High-Risk Medications Osteoarthritis of ankle and foot HALLUX VALGUS ACQUIRED Other Hammer Toe (Acquired) Enthesopathy of Ankle and Tarsus, Unspecified Lesion of Plantar Nerve Neuralgia, Neuritis, and Radiculitis, Unspecified Foot Pain, Left Other Synovitis and Tenosynovitis, Unspecified Ankle and Foot Osteoarthrosis of Ankle and Foot, Left Synovitis of Left Foot Synovitis of Right Foot Vocal Cord Edema Primary Osteoarthritis of Both Feet Synovitis of Foot Conjunctivitis Keratopathy Obesity, Class III, BMI >= 40 Hypothyroidism Chronic Congestive Heart Failure (Hcc) Status Post Right Hip Replacement S/P Total Hip Arthroplasty Mixed Hyperlipidemia Obesity, Class II, Bmi 35-39.9 Thoracic Ascending Aortic Aneurysm (Hcc) Hypercalcemia Hyperparathyroid (Hcc) Thin Blood (Hcc) PAST MEDICAL HISTORY Diagnosis Date Arrhythmia Atrial fibrillation (HCC) on coumadin Herniated intervertebral disk HTN (hypertension) Hyperlipemia Kidney disease MONI (obstructive sleep apnea) no longer using CPAP since 60 lb weight loss Other acute pancreatitis with uninfected necrosis SLE (systemic lupus erythematosus) (HCC) Sleep apnea 07/29/2012 PAST SURGICAL HISTORY Procedure Laterality Date APPENDECTOMY CARPAL TUNNEL RIGHT WRIST surgical correction COLONOSCOPY 05/10/2019 [facility] COLONOSCOPY GEN ANES 07/23/2020 Dr. Reinoso/Diverticulosis/Hemorrhoids/ Ulcerative Colitis/Rpt in 2 yrs. COLONOSCOPY SCREENING 03/2023 EGD EUS 01/11/2020 [facility] LASIK Right prior to 1999 MRI PANC/JEANIE WO/W IVCON 12/20/2019 OVARIAN CYSTECTOMY PAST SURGICAL HISTORY OF 07/2013 bilateral foot procedure, Sherry PAST SURGICAL HISTORY OF 2018,2019 Ablation X2 TONSILLECTOMY HX FAMILY HISTORY Problem Relation Age of Onset Alzheimer's Disease Father Hypertension Father Cataract Mother Hypertension Mother Colon Cancer Mother Cataract Sister Hypertension Sister Colon Cancer Paternal Uncle Social History Tobacco Use Smoking status: Never Smokeless tobacco: Never Vaping Use Vaping Use: Never used Substance Use Topics Alcohol use: Yes Comment: very rare Drug use: No Comment: denies tx for drug/alcohol abuse in the past. ALLERGIES Allergen Reactions Dofetilide Other: See Comments, Anaphylaxis V-tach Iodinated Contrast * Other: See Comments (Deep seafood) hot flashes, sweating. Other reaction(s): over heated/nausea Sulfa (Sulfonamide * Vomiting total body swelling and kidney shut down, body aches and rash Contrast Dye Other: See Comments (Deep seafood) hot flashes, sweating. Iodine Other: See Comments Hot flashes and sweating Codeine Other: See Comments severe headaches Compazine [Prochlor* Other: See Comments loss control of left side of face Tetnus [Tetanus Vac* Other: See Comments red spot in area of shot MEDICATIONS: pantoprazole DR (PROTONIX) 40 mg tablet take 1 tablet by mouth twice a day amoxicillin (AMOXIL) 500 mg capsule Take 4 tablets one hour prior to dental procedure colestipol (COLESTID) 1 gram tablet TAKE 2 TABLETS BY MOUTH TWICE A DAY mesalamine (CANASA) 1,000 mg suppository 1 Suppository by RECTAL route daily at bedtime. Mesalamine (LIALDA) 1.2 gram EC tablet take 4 tablets by mouth once daily hydrOXYchloroQUINE (PLAQUENIL) 200 mg tablet take 1 tablet by mouth twice a day with food metoprolol succinate ER (TOPROL XL) 50 mg 24 hr tablet TAKE 1 TABLET BY MOUTH IN THE MORNING AND 2 TABLETS BY MOUTH IN THE EVENING ELIQUIS 5 mg tab(s) Take 5 mg by mouth twice daily. cholestyramine-sucrose (QUESTRAN) 4 gram powder Take 4 g by mouth three times daily with meals. ferrous sulfate (IRON) 325 mg (65 mg iron) tablet Take 1 tablet by mouth once daily. alendronate (FOSAMAX) 70 mg tablet Take 1 tablet by mouth one time a week. In the morning with a full glass of water, on an empty stomach. Do not take anything else by mouth or lie down for the next 30 minutes. acetaminophen (TYLENOL) 500 mg tablet Take 1 tablet by mouth every 4 hours as needed for pain. dlewuuk-djulsajxp-cvilzna D3 500 mg-5 mcg (200 unit) per tablet Take 1 tablet by mouth three times daily. MV with Feg-Oysgwiwy-Ktwfms (CENTRUM SILVER) 0.4 mg-300 mcg- 250 mcg tab Take 1 tablet by mouth once daily. celecoxib (CELEBREX) 200 mg capsule Take 200 mg by mouth twice daily. sucralfate (CARAFATE) 100 mg/mL suspension Take 10 mL by mouth four times daily. atorvastatin (LIPITOR) 40 mg tablet Take 1 tablet by mouth once daily. (Patient taking differently: Take 40 mg by mouth two times a day.) Bifidobacterium infantis (ALIGN ORAL) Take by mouth once daily. belimumab (BENLYSTA INTRAVENOUS) Inject intravenously. Patient reports she receives infusion every 3 months venlafaxine ER (EFFEXOR XR) 150 mg 24 hr capsule Take 1 capsule by mouth once daily. levothyroxine (SYNTHROID) 75 mcg tablet Take 75 mcg by mouth once daily. furosemide (LASIX) 40 mg tablet Take 40 mg by mouth once daily. busPIRone (BUSPAR) 10 mg tablet Take 10 mg by mouth daily at bedtime. spironolactone (ALDACTONE) 50 mg tablet Take 50 mg by mouth once daily. Cholecalciferol, Vitamin D3, 2,000 unit cap Take by mouth once daily. vitamin b complex(B COMPLEX TAB) one daily multivitamins w-minerals/lut(CENTRUM SILVER TAB) Take one(1) tablet daily. Allergies, medications, past surgical history, family history and past medical history were reviewed per this encounter. PHYSICAL EXAM O: P +2/4, PT nonpalpable, CFT less than 3 seconds; bilateral. Neurological: Intact epicritic sensation with no reproducible neuritic symptom bilateral Hair: Absent bilateral. Temp: Warm to warm tibia to toes bilateral Skin: Multiple calluses head hallux IPJ bilateral, plantar medial right hallux MTPJ, at the distal tuft of the left fifth toe with preulcerative discolored, friable changes. Clinical: Midfoot collapse bilateral with moderate pain on palpation and naviculocuneiform articulation on the left and to a lesser extent at the metatarsal cuneiform articulation on the left X-Ray: Severe midfoot osteoarthritic changes with omxg-fo-wzad appearance, periarticular subchondral sclerotic and cystic changes Assessment/Plan ASSESSMENT Diagnosis (L97.511) Ulcer of toe of right foot, limited to breakdown of skin (HCC) (primary encounter diagnosis) (L84) Pre-ulcerative calluses (M19.072) Osteoarthritis of midtarsal joint of left foot (M19.071) Osteoarthritis of midtarsal joint of right foot No orders found for this visit on 07/02/23. PLAN Reviewed complaint, pathology, etiology, x-rays, anatomy, treatment options conservative and surgical, prognosis, short and roasterman expectations, and benefit, and potential risks associated with complaints as well as each related treatment option. Dispensed power step inserts to replace older worn custom inserts, recommend use of Voltaren gel for symptomatic left midfoot complaint, also discussed with patient return to Dr. Cervantes for image guided intra-articular injections versus fusions. Reduce the tissue around the fifth toe trophic area with a sanding disc and recommended patient initiate dressing with Xeroform at that site. FOLLOW-UP: 2 months SIGNATURE: Beverly Franco DPM PATIENT NAME: Jesus Wolf DATE: July 02, 2023 TIME: 11:38 AM Beverly Franco DPM documented in this encounter [facility] 07-01-2023 Note HNO ID: [id number] Author: Coco Guzman RN Service: ? Author Type: Registered Nurse Type: Progress Notes Filed: 07/01/2023 12:25 PM Note Text: Since your last infusion, have you: Had any major change in your health (including new diagnosis of cancer, COPD or cogestive heart failure? No Been hospitalized? No Had any infections? No Taking antibiotics/antivirals/antifungals for current infection? No Had surgery or do you have upcoming surgery? No Received any live vaccines in the last four weeks? No Worsening GI symptoms/abnormal pain/bloating No In the past 7 days have you had: Fevers/chills/night sweats? No New cough or cold symptoms or sore throat? No Nausea/vomiting/diarrhea? No Unusual swelling of your ankles of feet? No Burning/blood with urination or urinary frequency? No New weakness/numbness/stumbling falls? No New rash or open sores? No [facility] 07-01-2023 History of Present illness Narrative Since your last infusion, have you: Had any major change in your health (including new diagnosis of cancer, COPD or cogestive heart failure? No Been hospitalized? No Had any infections? No Taking antibiotics/antivirals/antifungals for current infection? No Had surgery or do you have upcoming surgery? No Received any live vaccines in the last four weeks? No Worsening GI symptoms/abnormal pain/bloating No In the past 7 days have you had: Fevers/chills/night sweats? No New cough or cold symptoms or sore throat? No Nausea/vomiting/diarrhea? No Unusual swelling of your ankles of feet? No Burning/blood with urination or urinary frequency? No New weakness/numbness/stumbling falls? No New rash or open sores? No documented in this encounter [facility] 06-16-2023 Miscellaneous Notes Pharmacy escripts requesting the following refill: Requested Prescriptions Pending Prescriptions Disp Refills pantoprazole DR (PROTONIX) 40 mg tablet [Pharmacy Med Name: PANTOPRAZOLE SOD DR 40 MG TAB] 60 tablet 3 Sig: take 1 tablet by mouth twice a day Please review and advise. Bang Spears RN documented in this encounter [facility] 06-11-2023 Miscellaneous Notes Prescription sent to the pharmacy Horace Harrell PA-C Patient needs to have a dental procedure and needs an antibiotic. Patient states you are the last orthopedic surgeon she seen. Please send prescription to the [facility] in [facility]. patient would like to be notified when prescription has been sent in. Please advise documented in this encounter [facility] 05-21-2023 Note HNO ID: [id number] Author: Beverly Franco DPM Service: ? Author Type: Physician Type: Progress Notes Filed: 05/21/2023 12:04 PM Note Text: SERVICE DATE: May 21, 2023 PCP: Wojciech Treviño MD, DO Subjective Patient ID: Jesus is a 68 year old female. Patient presents today concerned about tissue breakdown on the side of her right second toe. States that it rubs against the adjacent big toe. She has been protecting it with a Band-Aid, sometimes Vaseline Chief Complaint: Patient presents with: Ulcer: Right foot PAIN EVALUATION No data found in the last 1 encounters. HPI patient has had previous ulcers, patient redressed with local wound care and patient appropriately obtaining accommodative shoe gear but now has developed a new wound. She denies fever, chills, nausea, malaise, shortness of breath or chest pain Review of Systems ACTIVE PROBLEM LIST Edema Proteinuria Essential Hypertension Atrial Fibrillation (Hcc) Membranous Glomerulonephritis Vitamin D Deficiency Sle (Systemic Lupus Erythematosus) (Hcc) Fibromyalgia Sleep Apnea Encounter for Long-Term (Current) Use of Other High-Risk Medications Osteoarthritis of ankle and foot HALLUX VALGUS ACQUIRED Other Hammer Toe (Acquired) Enthesopathy of Ankle and Tarsus, Unspecified Lesion of Plantar Nerve Neuralgia, Neuritis, and Radiculitis, Unspecified Foot Pain, Left Other Synovitis and Tenosynovitis, Unspecified Ankle and Foot Osteoarthrosis of Ankle and Foot, Left Synovitis of Left Foot Synovitis of Right Foot Vocal Cord Edema Primary Osteoarthritis of Both Feet Synovitis of Foot Conjunctivitis Keratopathy Obesity, Class III, BMI >= 40 Hypothyroidism Chronic Congestive Heart Failure (Hcc) Status Post Right Hip Replacement S/P Total Hip Arthroplasty Mixed Hyperlipidemia Obesity, Class II, Bmi 35-39.9 Thoracic Ascending Aortic Aneurysm (Hcc) Hypercalcemia Hyperparathyroid (Hcc) Thin Blood (Hcc) PAST MEDICAL HISTORY Diagnosis Date Arrhythmia Atrial fibrillation (HCC) on coumadin Herniated intervertebral disk HTN (hypertension) Hyperlipemia Kidney disease MONI (obstructive sleep apnea) no longer using CPAP since 60 lb weight loss Other acute pancreatitis with uninfected necrosis SLE (systemic lupus erythematosus) (HCC) Sleep apnea 07/29/2012 PAST SURGICAL HISTORY Procedure Laterality Date APPENDECTOMY CARPAL TUNNEL RIGHT WRIST surgical correction COLONOSCOPY 05/10/2019 [facility] COLONOSCOPY GEN ANES 07/23/2020 Dr. Reinoso/Diverticulosis/Hemorrhoids/ Ulcerative Colitis/Rpt in 2 yrs. COLONOSCOPY SCREENING 03/2023 EGD EUS 01/11/2020 [facility] LASIK Right prior to 1999 MRI PANC/JEANIE WO/W IVCON 12/20/2019 OVARIAN CYSTECTOMY PAST SURGICAL HISTORY OF 07/2013 bilateral foot procedure, [place] PAST SURGICAL HISTORY OF 2018,2019 Ablation X2 TONSILLECTOMY HX FAMILY HISTORY Problem Relation Age of Onset Alzheimer's Disease Father Hypertension Father Cataract Mother Hypertension Mother Colon Cancer Mother Cataract Sister Hypertension Sister Colon Cancer Paternal Uncle Social History Tobacco Use Smoking status: Never Smokeless tobacco: Never Vaping Use Vaping Use: Never used Substance Use Topics Alcohol use: Yes Comment: very rare Drug use: No Comment: denies tx for drug/alcohol abuse in the past. ALLERGIES Allergen Reactions Dofetilide Other: See Comments, Anaphylaxis V-tach Iodinated Contrast * Other: See Comments (Deep seafood) hot flashes, sweating. Other reaction(s): over heated/nausea Sulfa (Sulfonamide * Vomiting total body swelling and kidney shut down, body aches and rash Contrast Dye Other: See Comments (Deep seafood) hot flashes, sweating. Iodine Other: See Comments Hot flashes and sweating Codeine Other: See Comments severe headaches Compazine [Prochlor* Other: See Comments loss control of left side of face Tetnus [Tetanus Vac* Other: See Comments red spot in area of shot MEDICATIONS: colestipol (COLESTID) 1 gram tabletTAKE 2 TABLETS BY MOUTH TWICE A DAYDisp: 360 tabletRfl: 3 mesalamine (CANASA) 1,000 mg suppository1 Suppository by RECTAL route daily at bedtime.Disp: 30 SuppositoryRfl: 3 Mesalamine (LIALDA) 1.2 gram EC tablettake 4 tablets by mouth once dailyDisp: 360 tabletRfl: [address] (PROTONIX) 40 mg tablettake 1 tablet by mouth twice a dayDisp: 60 tabletRfl: 3 hydrOXYchloroQUINE (PLAQUENIL) 200 mg tablettake 1 tablet by mouth twice a day with foodDisp: 180 tabletRfl: 2 metoprolol succinate ER (TOPROL XL) 50 mg 24 hr tabletTAKE 1 TABLET BY MOUTH IN THE MORNING AND 2 TABLETS BY MOUTH IN THE EVENINGDisp: 270 tabletRfl: 3 ELIQUIS 5 mg tab(s)Take 5 mg by mouth twice daily.Disp: Rfl: cholestyramine-sucrose (QUESTRAN) 4 gram powderTake 4 g by mouth three times daily with meals.Disp: Rfl: ferrous sulfate (IRON) 325 mg (65 mg iron) tab (more content not included)... [facility] 04-17-2023 Miscellaneous Notes Pharmacy escripts requesting the following refill: Requested Prescriptions Pending Prescriptions Disp Refills colestipol (COLESTID) 1 gram tablet [Pharmacy Med Name: COLESTIPOL HCL 1 GM TABLET] 360 tablet 3 Sig: TAKE 2 TABLETS BY MOUTH TWICE A DAY Please review and advise. Bang Spears RN documented in this encounter [facility] 04-15-2023 History and physical note FOLLOW UP OFFICE VISIT REASON FOR VISIT: follow up UC HPI: Jesus Wolf is a 68 year old female who presents for follow up UC. After colonoscopy 2 weeks ago, she was in the ER several times with migraine headaches. She was in the [facility] on vacation. It is likely these were due to dehydration from the procedure with bowel prep and from the altitude. She went to the ER and received fluids and magnesium. She has since been doing better. She still having 4-5 bowel movements a day of type IV-V stool. She denies any melena, hematochezia or rectal bleeding. She does describe urgency and tenesmus. Her GERD is overall under good control. Past Clinical Work-Up: Last office visit 04/03/2021: ASSESSMENT AND PLAN 65-year-old female with past medical history of SLE on mycophenolate and Plaquenil, hypertension, anxiety, A. fib on Eliquis and ulcerative colitis on mesalamine therapy presenting for follow up of ulcerative colitis, pancreatitis and IPMN. Colonoscopy 07/2020 with Bunn 1 pancolitis however biopsies were normal. She continues on the mesalamine maximum dose. She continues to have diarrhea particularly after eating fried greasy foods and sauces for which we will start colestipol should there be a component of bile acid diarrhea. Dr. Arredondo has been following her IPMN and is planning on repeating her right upper quadrant ultrasound as there was concern for gallstone pancreatitis. -Ultrasound gallbladder -Follow up after ultrasound with Dr. Arredondo -If still with epigastric pressure pending ultrasound result and Dr. arredondo follow up, we can consider endoscopy -Continue lialda -Continue omeprazole -Imodium as needed -Colestipol twice daily RTC 4 months Colon 04/02/2023: - Hemorrhoids found on perianal exam. - The examined portion of the ileum was normal. Biopsied. - Mild (Bunn Score 1) ulcerative colitis. Biopsied. - Inactive (Bunn Score 0) ulcerative colitis. - Diverticulosis in the sigmoid colon. - Non-bleeding internal hemorrhoids. Path: A. Ileum, biopsy: - Small intestinal mucosa with no diagnostic abnormality. - Negative for active and granulomatous inflammation. - Negative for dysplasia. B. Colon, right, biopsy: - Colonic mucosa with no diagnostic abnormality. - Negative for active and granulomatous inflammation. - Negative for dysplasia. C. Colon, transverse, biopsy: - Colonic mucosa with no diagnostic abnormality. - Negative for active and granulomatous inflammation. - Negative for dysplasia. D. Colon, left, biopsy: - Colonic mucosa with no diagnostic abnormality. - Negative for active and granulomatous inflammation. - Negative for dysplasia. E. Rectum, biopsy: - Focal active colitis. - Negative for granulomatous inflammation and dysplasia. EGD 09/12/2021: - Normal mucosa was found in the entire esophagus. - Z-line regular, 40 cm from the incisors. - Gastritis. Biopsied. - Normal duodenal bulb and second portion of the duodenum. Biopsied. Path: 1. Duodenum, biopsy (A) - Duodenal mucosa with no significant diagnostic alteration. 2. Stomach, biopsy (B) - Chronic antral and fundic gastritis. - Immunohistochemistry for Helicobacter pylori will be reported in an addendum. Colon 09/12/2021: - Hemorrhoids found on perianal exam. - Mild (Bunn Score 1) ulcerative colitis, worsened since the last examination. Biopsied and Clips were placed. - Diverticulosis in the sigmoid colon. - Non-bleeding internal hemorrhoids. Path: 3. Colon, right, transverse, left, and rectum, biopsy (C-F) - Colonic mucosa with no significant diagnostic alteration. US RUQ 04/10/2021: IMPRESSION: 1. No gallstones or biliary dilatation. 2. Coarse heterogeneous liver suspicious for steatosis and/or diffuse hepatocellular disease. MRI PANC/JEANIE WO/W IVCON 07/04/20 IMPRESSION: Interval resolution of hyperenhancing area in the proximal body of the pancreas, likely related to previous pancreatitis. 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 Another short-term follow-up study is recommended to assess the long-term stability of the findings. Component Latest Ref Rng & Units 02/09/2023 CALPROTECTIN, FECAL QUANTITATIVE <50 ug/g 335 (H) CALPROTECTIN, FECAL INTERP Normal Elevated (A) Component Latest Ref Rng & Units 12/25/2022 Shigella spp./Enteroinvasive E.coli DNA Not Detected Not detected Campylobacter jejuni/coli DNA Not Detected Not detected Shiga toxin-producing gene(s) Not Detected Not detected Salmonella spp. DNA Not Detected Not detected Cryptosporidium Antigen by EIA Negative Negative for Cryptosporidium by EIA. Giardia Antigen by EIA Negative Negative for Giardia lamblia by EIA. C. difficile PCR Negative for C. difficile toxin by PCR Positive for C. difficile toxin by PCR (A) Calprotectin, Fecal 0 - 50 mg/kg 468.0 (H) C. difficile Toxin EIA Negative for C. difficile toxin C. difficile toxin NOT DETECTED by EIA. Component Latest Ref Rng & Units 02/04/2023 WBC 3.70 - 11.00 k/uL 8.34 RBC 3.90 - 5.20 m/uL 4.31 Hemoglobin 11.5 - 15.5 g/dL 13.5 Hematocrit 36.0 - 46.0 % 41.8 MCV 80.0 - 100.0 fL 97.0 MCH 26.0 - 34.0 pg 31.3 MCHC 30.5 - 36.0 g/dL 32.3 RDW-CV 11.5 - 15.0 % 13.2 Platelet Count 150 - 400 k/uL 279 MPV 9.0 - 12.7 fL 10.5 Neut% % 60.8 Abs Neut (ANC) 1.45 - 7.50 k/uL 5.07 Lymph% % 24.5 Abs Lymph 1.00 - 4.00 k/uL 2.04 Brooke% % 11.0 Abs Brooke <0.87 k/uL 0.92 (H) Eosin% % 3.1 Abs Eosin <0.46 k/uL 0.26 Baso% % 0.4 Abs Baso <0.11 k/uL 0.03 Immature Gran % % 0.2 IMMATURE GRANS (ABS) <0.10 k/uL <0.03 NRBC /100 WBC 0.0 Absolute nRBC <0.01 k/uL <0.01 DTYPE Auto Protein, Total 6.3 - 8.0 g/dL 6.8 Albumin 3.9 - 4.9 g/dL 4.2 Calcium 8.5 - 10.2 mg/dL 9.8 Bilirubin, Total 0.2 - 1.3 mg/dL 0.6 Alkaline Phosphatase 34 - 123 U/L 116 AST 13 - 35 U/L 30 ALT 7 - 38 U/L 20 Glucose 74 - 99 mg/dL 82 BUN 7 - 21 mg/dL 24 (H) Creatinine 0.58 - 0.96 mg/dL 1.14 (H) Sodium 136 - 144 mmol/L 140 Potassium 3.7 - 5.1 mmol/L 5.0 Chloride 97 - 105 mmol/L 106 (H) CO2 22 - 30 mmol/L 20 (L) Anion Gap 9 - 18 mmol/L 14 eGFR >=60 mL/min/1.73m 53 (L) Vitamin D 25 Hydroxy 31.0 - 80.0 ng/mL 52.0 ALLERGIES Allergen Reactions Dofetilide Other: See Comments, Anaphylaxis V-tach Iodinated Contrast * Other: See Comments (Deep seafood) hot flashes, sweating. Other reaction(s): over heated/nausea Sulfa (Sulfonamide * Vomiting total body swelling and kidney shut down, body aches and rash Contrast Dye Other: See Comments (Deep seafood) hot flashes, sweating. Iodine Other: See Comments Hot flashes and sweating Codeine Other: See Comments severe headaches Compazine [Prochlor* Other: See Comments loss control of left side of face Tetnus [Tetanus Vac* Other: See Comments red spot in area of shot PAST MEDICAL HISTORY Diagnosis Date Arrhythmia Atrial fibrillation (HCC) on coumadin Herniated intervertebral disk HTN (hypertension) Hyperlipemia Kidney disease MONI (obstructive sleep apnea) no longer using CPAP since 60 lb weight loss Other acute pancreatitis with uninfected necrosis SLE (systemic lupus erythematosus) (HCC) Sleep apnea 07/29/2012 PAST SURGICAL HISTORY Procedure Laterality Date APPENDECTOMY CARPAL TUNNEL RIGHT WRIST surgical correction COLONOSCOPY 05/10/2019 [facility] COLONOSCOPY GEN ANES 07/23/2020 Dr. Reinoso/Diverticulosis/Hemorrhoids/ Ulcerative Colitis/Rpt in 2 yrs. EGD EUS 01/11/2020 [facility] LASIK Right prior to 1999 MRI PANC/JEANIE WO/W IVCON 12/20/2019 OVARIAN CYSTECTOMY PAST SURGICAL HISTORY OF 07/2013 bilateral foot procedure, [place] PAST SURGICAL HISTORY OF Ablation X2 TONSILLECTOMY HX FAMILY HISTORY Problem Relation Age of Onset Alzheimer's Disease Father Hypertension Father Cataract Mother Hypertension Mother Colon Cancer Mother Cataract Sister Hypertension Sister Colon Cancer Paternal Uncle Social History Tobacco Use Smoking status: Never Smokeless tobacco: Never Vaping Use Vaping Use: Never used Substance Use Topics Alcohol use: Yes Comment: very rare Drug use: No Comment: denies tx for drug/alcohol abuse in the past. Current Outpatient Medications Medication Sig mesalamine (CANASA) 1,000 mg suppository 1 Suppository by RECTAL route daily at bedtime. Mesalamine (LIALDA) 1.2 gram EC tablet take 4 tablets by mouth once daily pantoprazole DR (PROTONIX) 40 mg tablet take 1 tablet by mouth twice a day hydrOXYchloroQUINE (PLAQUENIL) 200 mg tablet take 1 tablet by mouth twice a day with food cephALEXin (KEFLEX) 500 mg capsule Take 1 capsule by mouth four times daily. metoprolol succinate ER (TOPROL XL) 50 mg 24 hr tablet TAKE 1 TABLET BY MOUTH IN THE MORNING AND 2 TABLETS BY MOUTH IN THE EVENING diclofenac (VOLTAREN) 1 % topical gel Apply 2 g to affected area four times daily. colestipol (COLESTID) 1 gram tablet TAKE 2 TABLETS BY MOUTH TWICE A DAY ELIQUIS 5 mg tab(s) Take 5 mg by mouth twice daily. cholestyramine-sucrose (QUESTRAN) 4 gram powder Take 4 g by mouth three times daily with meals. ferrous sulfate (IRON) 325 mg (65 mg iron) tablet Take 1 tablet by mouth once daily. alendronate (FOSAMAX) 70 mg tablet Take 1 tablet by mouth one time a week. In the morning with a full glass of water, on an empty stomach. Do not take anything else by mouth or lie down for the next 30 minutes. acetaminophen (TYLENOL) 500 mg tablet Take 1 tablet by mouth every 4 hours as needed for pain. qkdsvyi-jwldstius-psczzgy D3 500 mg-5 mcg (200 unit) per tablet Take 1 tablet by mouth three times daily. MV with Lcc-Rlkacotg-Sqjolq (CENTRUM SILVER) 0.4 mg-300 mcg- 250 mcg tab Take 1 tablet by mouth once daily. celecoxib (CELEBREX) 200 mg capsule Take 200 mg by mouth twice daily. sucralfate (CARAFATE) 100 mg/mL suspension Take 10 mL by mouth four times daily. atorvastatin (LIPITOR) 40 mg tablet Take 1 tablet by mouth once daily. (Patient taking differently: Take 40 mg by mouth twice daily.) Bifidobacterium infantis (ALIGN ORAL) Take by mouth once daily. belimumab (BENLYSTA INTRAVENOUS) Inject intravenously. Patient reports she receives infusion every 3 months venlafaxine ER (EFFEXOR XR) 150 mg 24 hr capsule Take 1 capsule by mouth once daily. levothyroxine (SYNTHROID) 75 mcg tablet Take 75 mcg by mouth once daily. furosemide (LASIX) 40 mg tablet Take 40 mg by mouth once daily. busPIRone (BUSPAR) 10 mg tablet Take 10 mg by mouth daily at bedtime. spironolactone (ALDACTONE) 50 mg tablet Take 50 mg by mouth once daily. Cholecalciferol, Vitamin D3, 2,000 unit cap Take by mouth once daily. vitamin b complex(B COMPLEX TAB) one daily multivitamins w-minerals/lut(CENTRUM SILVER TAB) Take one(1) tablet daily. Current Facility-Administered Medications Medication Dose Route Frequency perflutren lipid microspheres 1.3 mL in NaCl (PF) 0.9% 10 mL injection (DEFINITY) INTRAVENOUS DIRECTED PRN sodium chloride 0.9 % (flush) 10 mL (BD POSIFLUSH) 10 mL INTRAVENOUS DIRECTED PRN REVIEW OF SYSTEMS: PAIN ASSESSMENT: Negative for pain, history of chronic pain, or current treatment for a chronic pain condition.. GENERAL: No weight loss, malaise or fevers HEENT: Negative for frequent or significant headaches, No changes in hearing or vision, no nose bleeds or other nasal problems NECK: Negative for lumps, goiter, pain and significant neck swelling RESPIRATORY: Negative for cough, hemoptysis, wheezing, COPD, dyspnea or shortness of breath CARDIOVASCULAR: Negative for chest pain, leg swelling, hypertension, CHF or palpitations GI: See HPI above : No history of dysuria, frequency or incontinence STAFF ANALYST: Negative for abnormal vaginal bleeding, abnormal vaginal discharge MUSCULOSKELETAL: Negative for joint pain or swelling, back pain or muscle pain SKIN: Negative for lesions, rash, and itching PSYCH: Negative for sleep disturbance, mood disorder and recent psychosocial stressors HEMATOLOGY/LYMPHOLOGY: Negative for prolonged bleeding, bruising easily or swollen nodes ENDOCRINE: Negative for cold or heat intolerance, polyuria, polydipsia and goiter NEURO: No history of headaches, syncope, paralysis, seizures or tremors PHYSICAL EXAMINATION: BP 142/85 Pulse 70 Wt 254 lb (115.2kg) LMP 07/17/2011 General appearance: Well appearing, alert, in no acute distress, well-hydrated, well nourished. Skin: Skin color, texture, turgor normal, no suspicious rashes or lesions Head: Normocephalic, no masses, lesions, tenderness or abnormalities Eyes: Anicteric sclera. Pupils are equally round and reactive to light. Extraocular movements are intact. Ears: External ears normal, canals clear Nose/Sinuses: Nares normal, septum midline, mucosa normal, no drainage or sinus tenderness Oropharynx: Lips, mucosa, and tongue normal, teeth and gums normal, oropharynx normal Neck: Supple, no adenopathy; thyroid symmetric, normal size, no bruits Back: Normal exam Lungs: Lungs clear to auscultation. No wheezing, rhonchi, rales Heart: RRR without murmur, gallop, or rubs. No ectopy Abdomen: Normal abdominal exam, Abdomen soft, non-tender. Bowel sounds normal. No masses, organomegaly Extremities: No deformities, edema, skin discoloration, clubbing or cyanosis. Good capillary refill. Musculoskeletal: No joint swelling, deformity, or tenderness Peripheral pulses: Normal Neuro: Gait normal. Reflexes normal and symmetric. Sensation grossly intact. Rectal: Examination deferred ASSESSMENT AND PLAN: 68-year-old female with past medical history of SLE on mycophenolate and Plaquenil, hypertension, anxiety, A. fib on Eliquis and ulcerative colitis on mesalamine therapy presenting for follow up of ulcerative colitis. Most recent colonoscopy with only proctitis, Canasa suppositories added to mesalamine therapy. She will continue on colestipol. She can increase the colestipol if she would like. She overall has no red flag or alarm symptoms at this time. -Continue mesalamine -Continue Canasa suppositories -Continue Protonix -Continue colestipol RTC 6 months I spent a total of 30 minutes on the date of service which included preparing to see the patient, face to face patient care, completing clinical documentation, performing a medically appropriate examination and counseling and educating the patient/family/caregiver. Dione Reinoso MD, MPH Gastroenterology and Hepatology This note was partially generated using the Ch[employer] voice recognition system, there may be some incorrect words, spellings, and punctuation that were not noted in checking the note before saving documented in this encounter [facility] 04-15-2023 Instructions Dione Reinoso MD - 04/15/2023 9:13 AM EDT Continue mesalamine Continue canasa suppositories (can go down to as needed eventually) Continue protonix Continue colestipol documented in this encounter [facility] 04-10-2023 Note HNO ID: [id number] Author: Nadege Hawkins, DO Service: ? Author Type: Physician Type: Progress Notes Filed: 04/10/2023 9:51 AM Note Text: [facility] DEPARTMENT OF RHEUMATIC AND IMMUNOLOGIC DISEASES This visit was conducted as a virtual visit. SUBJECTIVE: Reason for visit: SLE Brief History of Present Illness: Jesus Wolf is a 68 year old female with HTN, HLD, HFpEF, MONI not on CPAP, pAF s/p PVI 2x, hypothyroidism, primary hyperparathyroidism, ulcerative colitis, gallstone pancreatitis, IPMN, osteopenia is evaluated in the Rheumatology Clinic for SLE. Lupus has been characterized by LN. 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 There is no endocapillary hypercellularity, karyorrhexis, fibrinoid necrosis, rupture of glomerular basement membranes, crescents, wireloops or hyaline thrombi. There is minimal, patchy tubulointerstitial atrophy and fibrosis and a mild chronic interstitial infiltrate . Vessels are unremarkable. Immunofluorescence: There is finely granular glomerular basement membrane and mesangial positivity for kappa (3+), lambda (3+), C3c (3+), IgG (2+), IgA (1+), IgM (1+) and C1q (faint). There is also granular tubular basement membrane positivity for kappa, lambda and C3c. Albumin is negative. Electron microscopy: There are subepithelial and mesangial electron dense deposits, with overlying epithelial foot processes effacement Last seen by Dr. Hardin 02/2022: SLE and membraneous nephropathy. Failed cyclosporine. Started MMF 06/26, Benlysta 09/28 every month then starting in February 2012 started every two months Jun 2012. Aug 2013 Benlysta moved to every 3 months. Also on Plaquenil and cellcept 1g BID. August 2018 cellcept was decreased to 1500 mg daily because of recurrent URI . March 2020 admitted with CHF A. fib on Eliquis DX 1998 ulcerative colitis on mesalamine therapy Has pancreatitis and IPMN. Takes prednisone before benlysta because of burning eye symptoms with Benlysta , no anaphylaxis Had GI evaluation and general surgery and thought the pancreatitis thought to be to gall bladder stone Had a hip replacement right hip in December 2020 Tapering cellcept on 1 gram daily Does not use the CPAP Had eye exam in 2021 and was normal Had recent UTI was treated with antibiotics then developed C. difficile feels better now. First seen by me 01/2023 when she endorsed joint pain in her shoulders, knees and fingers, achy in nature, upon movement. She had difficulty rising from a sitting to a standing position related to pain and weakness, no upper extremity weakness. No rashes, or nasal ulcers. She still reports photosensitivity, and Raynaud's. Had morning stiffness which lasts 15-20 minutes. At that visit mycophenolate mofetil was stopped. She has been feeling well without any new symptoms. She can tell she is due to BEL every 3 months, has increased fatigue prior to her infusions. Current Medications: HCQ 400 mg once daily Belimumab infusions every months Answers submitted by the patient for this visit: Review of Systems Rheumatology (Submitted on 04/10/2023) Fever : No Recent Unintentional Weight Change: No Eye Pain: No Eye Redness: No Vision Disturbance: No Eye Dryness: No Nose Bleeds: No Sores in your Mouth: No Trouble Swallowing: No Dry Mouth: No Chest Pain: No Leg Swelling: No A Cough: No Shortness of Breath: No Pain with Breathing: No Heartburn: No Abdominal Pain: No Diarrhea: Yes Black Tarry Stools: No Blood in Urine: No Pain or Burning with Urination: No Joint Pain or Stiffness: Yes Muscle Weakness: Yes Muscle Aches: Yes Joint Swelling: Yes Morning Stiffness in Joints: Yes A Rash: No Skin Color Changes: No Hair Loss: No Nail Changes: No Headaches: Yes Numbness: No Memory Loss: No Swollen Glands: No PMHx: PAST MEDICAL HISTORY Diagnosis Date Arrhythmia Atrial fibrillation (HCC) on coumadin Herniated intervertebral disk HTN (hypertension) Hyperlipemia Kidney disease MONI (obstructive sleep apnea) no longer using CPAP since 60 lb weight loss Other acute pancreatitis with uninfected necrosis SLE (systemic lupus erythematosus) (HCC) Sleep apnea 07/29/2012 PSHx: PAST SURGICAL HISTORY Procedure Laterality Date APPENDECTOMY CARPAL TUNNEL RIGHT WRIST surgical correction COLONOSCOPY 05/10/2019 [facility] COLONOSCOPY GEN ANES 07/23/2020 Dr. Reinoso/Diverticulosis/Hemorrhoids/ Ulcerative Colitis/Rpt in 2 yrs. EGD EUS 01/11/2020 [facility] LASIK Right prior to 1999 MRI PANC/JEANIE WO/W IVCON 12/20/2019 OVARIAN CYSTECTOMY PAST SURGICAL HISTORY OF 07/2013 bilateral foot procedure, Sherry PAST SURGICAL HISTORY OF 2018 (more content not included)... [facility] 04-10-2023 History of Present illness Narrative Images from the original note were not included. [facility] DEPARTMENT OF RHEUMATIC AND IMMUNOLOGIC DISEASES This visit was conducted as a virtual visit. SUBJECTIVE: Reason for visit: SLE Brief History of Present Illness: Jesus Wolf is a 68 year old female with HTN, HLD, HFpEF, MONI not on CPAP, pAF s/p PVI 2x, hypothyroidism, primary hyperparathyroidism, ulcerative colitis, gallstone pancreatitis, IPMN, osteopenia is evaluated in the Rheumatology Clinic for SLE. Lupus has been characterized by LN. 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 There is no endocapillary hypercellularity, karyorrhexis, fibrinoid necrosis, rupture of glomerular basement membranes, crescents, wireloops or hyaline thrombi. There is minimal, patchy tubulointerstitial atrophy and fibrosis and a mild chronic interstitial infiltrate . Vessels are unremarkable. Immunofluorescence: There is finely granular glomerular basement membrane and mesangial positivity for kappa (3+), lambda (3+), C3c (3+), IgG (2+), IgA (1+), IgM (1+) and C1q (faint). There is also granular tubular basement membrane positivity for kappa, lambda and C3c. Albumin is negative. Electron microscopy: There are subepithelial and mesangial electron dense deposits, with overlying epithelial foot processes effacement Last seen by Dr. Hardin 02/2022: SLE and membraneous nephropathy. Failed cyclosporine. Started MMF 06/26, Benlysta 09/28 every month then starting in February 2012 started every two months Jun 2012. Aug 2013 Benlysta moved to every 3 months. Also on Plaquenil and cellcept 1g BID. August 2018 cellcept was decreased to 1500 mg daily because of recurrent URI . March 2020 admitted with CHF A. fib on Eliquis DX 1998 ulcerative colitis on mesalamine therapy Has pancreatitis and IPMN. Takes prednisone before benlysta because of burning eye symptoms with Benlysta , no anaphylaxis Had GI evaluation and general surgery and thought the pancreatitis thought to be to gall bladder stone Had a hip replacement right hip in December 2020 Tapering cellcept on 1 gram daily Does not use the CPAP Had eye exam in 2021 and was normal Had recent UTI was treated with antibiotics then developed C. difficile feels better now. First seen by me 01/2023 when she endorsed joint pain in her shoulders, knees and fingers, achy in nature, upon movement. She had difficulty rising from a sitting to a standing position related to pain and weakness, no upper extremity weakness. No rashes, or nasal ulcers. She still reports photosensitivity, and Raynaud's. Had morning stiffness which lasts 15-20 minutes. At that visit mycophenolate mofetil was stopped. She has been feeling well without any new symptoms. She can tell she is due to BEL every 3 months, has increased fatigue prior to her infusions. Current Medications: HCQ 400 mg once daily Belimumab infusions every months Answers submitted by the patient for this visit: Review of Systems Rheumatology (Submitted on 04/10/2023) Fever : No Recent Unintentional Weight Change: No Eye Pain: No Eye Redness: No Vision Disturbance: No Eye Dryness: No Nose Bleeds: No Sores in your Mouth: No Trouble Swallowing: No Dry Mouth: No Chest Pain: No Leg Swelling: No A Cough: No Shortness of Breath: No Pain with Breathing: No Heartburn: No Abdominal Pain: No Diarrhea: Yes Black Tarry Stools: No Blood in Urine: No Pain or Burning with Urination: No Joint Pain or Stiffness: Yes Muscle Weakness: Yes Muscle Aches: Yes Joint Swelling: Yes Morning Stiffness in Joints: Yes A Rash: No Skin Color Changes: No Hair Loss: No Nail Changes: No Headaches: Yes Numbness: No Memory Loss: No Swollen Glands: No PMHx: PAST MEDICAL HISTORY Diagnosis Date Arrhythmia Atrial fibrillation (HCC) on coumadin Herniated intervertebral disk HTN (hypertension) Hyperlipemia Kidney disease MONI (obstructive sleep apnea) no longer using CPAP since 60 lb weight loss Other acute pancreatitis with uninfected necrosis SLE (systemic lupus erythematosus) ([facility]) Sleep apnea 07/29/2012 PSHx: PAST SURGICAL HISTORY Procedure Laterality Date APPENDECTOMY CARPAL TUNNEL RIGHT WRIST surgical correction COLONOSCOPY 05/10/2019 [facility] COLONOSCOPY GEN ANES 07/23/2020 Dr. Reinoso/Diverticulosis/Hemorrhoids/ Ulcerative Colitis/Rpt in 2 yrs. EGD EUS 01/11/2020 [facility] LASIK Right prior to 1999 MRI PANC/JEANIE WO/W IVCON 12/20/2019 OVARIAN CYSTECTOMY PAST SURGICAL HISTORY OF 07/2013 bilateral foot procedure, Sherry PAST SURGICAL HISTORY OF Ablation X2 TONSILLECTOMY HX MEDICATIONS: mesalamine (CANASA) 1,000 mg suppository^1 Suppository by RECTAL route daily at bedtime.^Disp: 30 Suppository^Rfl: 3 Mesalamine (LIALDA) 1.2 gram EC tablet^take 4 tablets by mouth once daily^Disp: 360 tablet^Rfl: [address] (PROTONIX) 40 mg tablet^take 1 tablet by mouth twice a day^Disp: 60 tablet^Rfl: 3 hydrOXYchloroQUINE (PLAQUENIL) 200 mg tablet^take 1 tablet by mouth twice a day with food^Disp: 180 tablet^Rfl: 2 cephALEXin (KEFLEX) 500 mg capsule^Take 1 capsule by mouth four times daily.^Disp: 28 capsule^Rfl: 0 metoprolol succinate ER (TOPROL XL) 50 mg 24 hr tablet^TAKE 1 TABLET BY MOUTH IN THE MORNING AND 2 TABLETS BY MOUTH IN THE EVENING^Disp: 270 tablet^Rfl: 3 diclofenac (VOLTAREN) 1 % topical gel^Apply 2 g to affected area four times daily.^Disp: 200 g^Rfl: 2 colestipol (COLESTID) 1 gram tablet^TAKE 2 TABLETS BY MOUTH TWICE A DAY^Disp: 120 tablet^Rfl: 3 ELIQUIS 5 mg tab(s)^Take 5 mg by mouth twice daily.^Disp: ^Rfl: cholestyramine-sucrose (QUESTRAN) 4 gram powder^Take 4 g by mouth three times daily with meals.^Disp: ^Rfl: ferrous sulfate (IRON) 325 mg (65 mg iron) tablet^Take 1 tablet by mouth once daily.^Disp: 90 tablet^Rfl: 3 alendronate (FOSAMAX) 70 mg tablet^Take 1 tablet by mouth one time a week. In the morning with a full glass of water, on an empty stomach. Do not take anything else by mouth or lie down for the next 30 minutes.^Disp: 12 tablet^Rfl: 3 acetaminophen (TYLENOL) 500 mg tablet^Take 1 tablet by mouth every 4 hours as needed for pain.^Disp: ^Rfl: cyzeewi-mjezyozlt-igdnzep D3 500 mg-5 mcg (200 unit) per tablet^Take 1 tablet by mouth three times daily.^Disp: ^Rfl: MV with Cqi-Oigwnmql-Vnwwbq (CENTRUM SILVER) 0.4 mg-300 mcg- 250 mcg tab^Take 1 tablet by mouth once daily.^Disp: ^Rfl: celecoxib (CELEBREX) 200 mg capsule^Take 200 mg by mouth twice daily.^Disp: ^Rfl: sucralfate (CARAFATE) 100 mg/mL suspension^Take 10 mL by mouth four times daily.^Disp: 420 mL^Rfl: 1 atorvastatin (LIPITOR) 40 mg tablet^Take 1 tablet by mouth once daily.^Disp: 90 tablet^Rfl: 3 (Patient taking differently: Take 40 mg by mouth twice daily.) Bifidobacterium infantis (ALIGN ORAL)^Take by mouth once daily.^Disp: ^Rfl: belimumab (BENLYSTA INTRAVENOUS)^Inject intravenously. Patient reports she receives infusion every 3 months^Disp: ^Rfl: venlafaxine ER (EFFEXOR XR) 150 mg 24 hr capsule^Take 1 capsule by mouth once daily.^Disp: 90 capsule^Rfl: 3 levothyroxine (SYNTHROID) 75 mcg tablet^Take 75 mcg by mouth once daily.^Disp: ^Rfl: furosemide (LASIX) 40 mg tablet^Take 40 mg by mouth once daily. ^Disp: ^Rfl: busPIRone (BUSPAR) 10 mg tablet^Take 10 mg by mouth daily at bedtime. ^Disp: ^Rfl: spironolactone (ALDACTONE) 50 mg tablet^Take 50 mg by mouth once daily.^Disp: ^Rfl: Cholecalciferol, Vitamin D3, 2,000 unit cap^Take by mouth once daily.^Disp: ^Rfl: vitamin b complex(B COMPLEX TAB)^one daily^Disp: ^Rfl: 0 multivitamins w-minerals/lut(CENTRUM SILVER TAB)^Take one(1) tablet daily.^Disp: ^Rfl: 0 ALLERGIES: ALLERGIES Allergen Reactions Dofetilide Other: See Comments, Anaphylaxis V-tach Iodinated Contrast * Other: See Comments (Deep seafood) hot flashes, sweating. Other reaction(s): over heated/nausea Sulfa (Sulfonamide * Vomiting total body swelling and kidney shut down, body aches and rash Contrast Dye Other: See Comments (Deep seafood) hot flashes, sweating. Iodine Other: See Comments Hot flashes and sweating Codeine Other: See Comments severe headaches Compazine [Prochlor* Other: See Comments loss control of left side of face Tetnus [Tetanus Vac* Other: See Comments red spot in area of shot OBJECTIVE: Physical Examination: General: Looks well, NAD, A & Ox3. HEENT: No facial rash. No alopecia. Neck: No LAD. Musculoskeletal: Elbows: No swelling, no flexion contractures, no nodules, good ROM Wrists: No swelling, no limitation in flexion and extension Hands: No evidence of synovitis. Able to make full fist bilaterally IMPRESSIONS/RECOMMENDATIONS: Systemic Lupus Erythematosus 2019 ACR/EULAR classification criteria: PARVEZ, +dsDNA antibodies with membranous lupus nephritis. Clinical symptoms of photosensitivity with malar rash and arthralgia. She is in renal remission and no longer warrants MMF. We will continue HCQ 5 mg/kg/day dosing and belimumab 10 mg/kg iv infusions every 3 months. We have discussed the risks and toxicities associated with the use of these medications and the appropriate lab monitoring. We will obtain SLE labs today. 2. 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 I have prescribed for her a course of Voltaren Gel 1% for her to use four times/daily. Health Maintenance: Vaccinations: Prevnar 20 given 01/2023. She is otherwise up to date with all vaccines. Advised COVID booster this fall. Bone Health: Seeing metabolic Bone. HCQ monitorin10/2022. Scanned into documents. RTC 6 months. Nadege Hawkins D.O. Rheumatology Staff documented in this encounter [facility] 04-08-2023 Miscellaneous Notes Spoke to the patient regarding results and recommendations. Verbalized understanding. With much discussion, pt chose suppository. Pt also states she has been in the ER 3 times since procedure with horrible migraine . I advise her that migraines could have been triggered by dehydration. When at the ER last time, her magnesium was low. Pt following up with PCP. Dr. Reinoso, please review the order and sign Thank you, Bang Spears RN ----- Message from Dione Reinoso MD sent at 04/06/2023 11:12 AM EDT ----- Normal ileal biopsies and normal colon biopsies except for the rectum, continue Lialda, recommend rectal topical therapy which she prefers suppository or enema? documented in this encounter [facility] 04-02-2023 History and physical note Pre procedure H&P HPI 68 year old year old female presenting for Colonoscopy for UC and recent c diff. PAST MEDICAL HISTORY Diagnosis Date Arrhythmia Atrial fibrillation (HCC) on coumadin Herniated intervertebral disk HTN (hypertension) Hyperlipemia Kidney disease MONI (obstructive sleep apnea) no longer using CPAP since 60 lb weight loss Other acute pancreatitis with uninfected necrosis SLE (systemic lupus erythematosus) (HCC) Sleep apnea 07/29/2012 PHYSICAL EXAM BP 145/70 Temp 36.3 C (97.3 F) (Temporal) Resp 18 LMP 07/17/2011 (Within Years) SpO2 96% General appearance: Well appearing, alert, in no acute distress, well-hydrated, well nourished. Skin: Skin color, texture, turgor normal, no suspicious rashes or lesions Head: Normocephalic, no masses, lesions, tenderness or abnormalities Eyes: Anicteric sclera. Pupils are equally round and reactive to light. Extraocular movements are intact. Ears: External ears normal, canals clear Nose/Sinuses: Nares normal, septum midline, mucosa normal, no drainage or sinus tenderness Oropharynx: Lips, mucosa, and tongue normal, teeth and gums normal, oropharynx normal Neck: Supple, no adenopathy; thyroid symmetric, normal size, no bruits Back: Normal exam Lungs: Lungs clear to auscultation. No wheezing, rhonchi, rales. Heart: RRR without murmur, gallop, or rubs. No ectopy Abdomen: Normal abdominal exam, Abdomen soft, non-tender. Bowel sounds normal. No masses, organomegaly ASSESSMENT / PLAN 1. Proceed with Colonoscopy SIGNATURE: Dione Reinoso MD PATIENT NAME: Jesus Wolf DATE: April 02, 2023 TIME: 7:38 AM documented in this encounter [facility] 03-19-2023 Note HNO ID: [id number] Author: Chantelle Dumont RN Service: ? Author Type: Registered Nurse Type: Progress Notes Filed: 03/19/2023 1:33 PM Note Text: Since your last infusion, have you: Had any major change in your health (including new diagnosis of cancer, COPD or cogestive heart failure? No Been hospitalized? No Had any infections? No Taking antibiotics/antivirals/antifungals for current infection? No Had surgery or do you have upcoming surgery? No Received any live vaccines in the last four weeks? No Worsening GI symptoms/abnormal pain/bloating No In the past 7 days have you had: Fevers/chills/night sweats? No New cough or cold symptoms or sore throat? No Nausea/vomiting/diarrhea? No Unusual swelling of your ankles of feet? No Burning/blood with urination or urinary frequency? No New weakness/numbness/stumbling falls? No New rash or open sores? No [facility] 03-19-2023 History of Present illness Narrative Since your last infusion, have you: Had any major change in your health (including new diagnosis of cancer, COPD or cogestive heart failure? No Been hospitalized? No Had any infections? No Taking antibiotics/antivirals/antifungals for current infection? No Had surgery or do you have upcoming surgery? No Received any live vaccines in the last four weeks? No Worsening GI symptoms/abnormal pain/bloating No In the past 7 days have you had: Fevers/chills/night sweats? No New cough or cold symptoms or sore throat? No Nausea/vomiting/diarrhea? No Unusual swelling of your ankles of feet? No Burning/blood with urination or urinary frequency? No New weakness/numbness/stumbling falls? No New rash or open sores? No documented in this encounter [facility] 03-18-2023 Miscellaneous Notes Spoke with pt; confirmed infusion for tomorrow. Denies s/sx of infection or antibiotics at this time. documented in this encounter [facility] 03-16-2023 Miscellaneous Notes Pharmacy escripts requesting the following refill: Requested Prescriptions Pending Prescriptions Disp Refills Mesalamine (LIALDA) 1.2 gram EC tablet [Pharmacy Med Name: MESALAMINE DR 1.2 GM TABLET] 360 tablet 1 Sig: take 4 tablets by mouth once daily Please review and advise. Bang Spears RN documented in this encounter [facility] 03-12-2023 Note HNO ID: [id number] Author: Beverly Franco DPM Service: ? Author Type: Physician Type: Progress Notes Filed: 03/12/2023 9:51 AM Note Text: SERVICE DATE: March 12, 2023 PCP: Wojciech Treviño DO Subjective Patient ID: Jesus is a 68 year old female. Patient presents for follow-up of ulcer at tip of right second toe and preulcerative calluses third toe stating that she is doing very well. She has obtained new soft properly fitting shoes. Chief Complaint: Patient presents with: Ulcer: Right 1st PAIN EVALUATION No data found in the last 1 encounters. HPI patient was seen for an ulceration and cellulitis tip of the right second toe and placed on Keflex on February 12, she has been using Betadine and a dry sterile dressing until the wound dried up. Patient is anticoagulated with Eliquis Review of Systems ACTIVE PROBLEM LIST Edema Proteinuria Essential Hypertension Atrial Fibrillation (Hcc) Membranous Glomerulonephritis Vitamin D Deficiency Sle (Systemic Lupus Erythematosus) (Hcc) Fibromyalgia Sleep Apnea Encounter for Long-Term (Current) Use of Other High-Risk Medications Osteoarthritis of ankle and foot HALLUX VALGUS ACQUIRED Other Hammer Toe (Acquired) Enthesopathy of Ankle and Tarsus, Unspecified Lesion of Plantar Nerve Neuralgia, Neuritis, and Radiculitis, Unspecified Foot Pain, Left Other Synovitis and Tenosynovitis, Unspecified Ankle and Foot Osteoarthrosis of Ankle and Foot, Left Synovitis of Left Foot Synovitis of Right Foot Vocal Cord Edema Primary Osteoarthritis of Both Feet Synovitis of Foot Conjunctivitis Keratopathy Obesity, Class III, BMI >= 40 Hypothyroidism Chronic Congestive Heart Failure (Hcc) Status Post Right Hip Replacement S/P Total Hip Arthroplasty Mixed Hyperlipidemia Obesity, Class II, Bmi 35-39.9 Thoracic Ascending Aortic Aneurysm (Hcc) Hypercalcemia Hyperparathyroid (Hcc) PAST MEDICAL HISTORY Diagnosis Date Arrhythmia Atrial fibrillation (HCC) on coumadin Herniated intervertebral disk HTN (hypertension) Hyperlipemia Kidney disease MONI (obstructive sleep apnea) no longer using CPAP since 60 lb weight loss Other acute pancreatitis with uninfected necrosis SLE (systemic lupus erythematosus) (HCC) Sleep apnea 07/29/2012 PAST SURGICAL HISTORY Procedure Laterality Date APPENDECTOMY CARPAL TUNNEL RIGHT WRIST surgical correction COLONOSCOPY 05/10/2019 [facility] COLONOSCOPY GEN ANES 07/23/2020 Dr. Reinoso/Diverticulosis/Hemorrhoids/ Ulcerative Colitis/Rpt in 2 yrs. EGD EUS 01/11/2020 [facility] LASIK Right prior to 1999 MRI PANC/JEANIE WO/W IVCON 12/20/2019 OVARIAN CYSTECTOMY PAST SURGICAL HISTORY OF 07/2013 bilateral foot procedure, Sherry PAST SURGICAL HISTORY OF Ablation X2 TONSILLECTOMY HX FAMILY HISTORY Problem Relation Age of Onset Alzheimer's Disease Father Hypertension Father Cataract Mother Hypertension Mother Colon Cancer Mother Cataract Sister Hypertension Sister Colon Cancer Paternal Uncle Social History Tobacco Use Smoking status: Never Smokeless tobacco: Never Vaping Use Vaping Use: Never used Substance Use Topics Alcohol use: Yes Comment: very rare Drug use: No Comment: denies tx for drug/alcohol abuse in the past. ALLERGIES Allergen Reactions Dofetilide Other: See Comments, Anaphylaxis V-tach Iodinated Contrast * Other: See Comments (Deep seafood) hot flashes, sweating. Other reaction(s): over heated/nausea Sulfa (Sulfonamide * Vomiting total body swelling and kidney shut down, body aches and rash Contrast Dye Other: See Comments (Deep seafood) hot flashes, sweating. Iodine Other: See Comments Hot flashes and sweating Codeine Other: See Comments severe headaches Compazine [Prochlor* Other: See Comments loss control of left side of face Tetnus [Tetanus Vac* Other: See Comments red spot in area of shot MEDICATIONS: pantoprazole DR (PROTONIX) 40 mg tablettake 1 tablet by mouth twice a dayDisp: 60 tabletRfl: 3 hydrOXYchloroQUINE (PLAQUENIL) 200 mg tablettake 1 tablet by mouth twice a day with foodDisp: 180 tabletRfl: 2 cephALEXin (KEFLEX) 500 mg capsuleTake 1 capsule by mouth four times daily.Disp: 28 capsuleRfl: 0 metoprolol succinate ER (TOPROL XL) 50 mg 24 hr tabletTAKE 1 TABLET BY MOUTH IN THE MORNING AND 2 TABLETS BY MOUTH IN THE EVENINGDisp: 270 tabletRfl: 3 diclofenac (VOLTAREN) 1 % topical gelApply 2 g to affected area four times daily.Disp: 200 gRfl: 2 colestipol (COLESTID) 1 gram tabletTAKE 2 TABLETS BY MOUTH TWICE A DAYDisp: 120 tabletRfl: 3 ELIQUIS 5 mg tab(s)Take 5 mg by mouth twice daily.Disp: Rfl: cholestyramine-sucrose (QUESTRAN) 4 gram powderTake 4 g by mouth three times daily with meals.Disp: Rfl: ferrous sulfate (IRON) 325 mg (65 mg iron) tabletTake 1 tablet by mouth once daily.Disp: 90 tabletRfl: 3 alendronate (FOSAMAX) 70 mg tab (more content not included)... [facility] 03-12-2023 History of Present illness Narrative SERVICE DATE: March 12, 2023 PCP: Wojciech Treviño, Subjective Patient ID: Jesus is a 68 year old female. Patient presents for follow-up of ulcer at tip of right second toe and preulcerative calluses third toe stating that she is doing very well. She has obtained new soft properly fitting shoes. Chief Complaint: Patient presents with: Ulcer: Right 1st PAIN EVALUATION No data found in the last 1 encounters. HPI patient was seen for an ulceration and cellulitis tip of the right second toe and placed on Keflex on February 12, she has been using Betadine and a dry sterile dressing until the wound dried up. Patient is anticoagulated with Eliquis Review of Systems ACTIVE PROBLEM LIST Edema Proteinuria Essential Hypertension Atrial Fibrillation (Hcc) Membranous Glomerulonephritis Vitamin D Deficiency Sle (Systemic Lupus Erythematosus) (Hcc) Fibromyalgia Sleep Apnea Encounter for Long-Term (Current) Use of Other High-Risk Medications Osteoarthritis of ankle and foot HALLUX VALGUS ACQUIRED Other Hammer Toe (Acquired) Enthesopathy of Ankle and Tarsus, Unspecified Lesion of Plantar Nerve Neuralgia, Neuritis, and Radiculitis, Unspecified Foot Pain, Left Other Synovitis and Tenosynovitis, Unspecified Ankle and Foot Osteoarthrosis of Ankle and Foot, Left Synovitis of Left Foot Synovitis of Right Foot Vocal Cord Edema Primary Osteoarthritis of Both Feet Synovitis of Foot Conjunctivitis Keratopathy Obesity, Class III, BMI >= 40 Hypothyroidism Chronic Congestive Heart Failure (Hcc) Status Post Right Hip Replacement S/P Total Hip Arthroplasty Mixed Hyperlipidemia Obesity, Class II, Bmi 35-39.9 Thoracic Ascending Aortic Aneurysm (Hcc) Hypercalcemia Hyperparathyroid (Hcc) PAST MEDICAL HISTORY Diagnosis Date Arrhythmia Atrial fibrillation (HCC) on coumadin Herniated intervertebral disk HTN (hypertension) Hyperlipemia Kidney disease MONI (obstructive sleep apnea) no longer using CPAP since 60 lb weight loss Other acute pancreatitis with uninfected necrosis SLE (systemic lupus erythematosus) ([facility]) Sleep apnea 07/29/2012 PAST SURGICAL HISTORY Procedure Laterality Date APPENDECTOMY CARPAL TUNNEL RIGHT WRIST surgical correction COLONOSCOPY 05/10/2019 [facility] COLONOSCOPY GEN ANES 07/23/2020 Dr. Reinoso/Diverticulosis/Hemorrhoids/ Ulcerative Colitis/Rpt in 2 yrs. EGD EUS 01/11/2020 [facility] LASIK Right prior to 1999 MRI PANC/JEANIE WO/W IVCON 12/20/2019 OVARIAN CYSTECTOMY PAST SURGICAL HISTORY OF 07/2013 bilateral foot procedure, Sherry PAST SURGICAL HISTORY OF Ablation X2 TONSILLECTOMY HX FAMILY HISTORY Problem Relation Age of Onset Alzheimer's Disease Father Hypertension Father Cataract Mother Hypertension Mother Colon Cancer Mother Cataract Sister Hypertension Sister Colon Cancer Paternal Uncle Social History Tobacco Use Smoking status: Never Smokeless tobacco: Never Vaping Use Vaping Use: Never used Substance Use Topics Alcohol use: Yes Comment: very rare Drug use: No Comment: denies tx for drug/alcohol abuse in the past. ALLERGIES Allergen Reactions Dofetilide Other: See Comments, Anaphylaxis V-tach Iodinated Contrast * Other: See Comments (Deep seafood) hot flashes, sweating. Other reaction(s): over heated/nausea Sulfa (Sulfonamide * Vomiting total body swelling and kidney shut down, body aches and rash Contrast Dye Other: See Comments (Deep seafood) hot flashes, sweating. Iodine Other: See Comments Hot flashes and sweating Codeine Other: See Comments severe headaches Compazine [Prochlor* Other: See Comments loss control of left side of face Tetnus [Tetanus Vac* Other: See Comments red spot in area of shot MEDICATIONS: pantoprazole DR (PROTONIX) 40 mg tablet^take 1 tablet by mouth twice a day^Disp: 60 tablet^Rfl: 3 hydrOXYchloroQUINE (PLAQUENIL) 200 mg tablet^take 1 tablet by mouth twice a day with food^Disp: 180 tablet^Rfl: 2 cephALEXin (KEFLEX) 500 mg capsule^Take 1 capsule by mouth four times daily.^Disp: 28 capsule^Rfl: 0 metoprolol succinate ER (TOPROL XL) 50 mg 24 hr tablet^TAKE 1 TABLET BY MOUTH IN THE MORNING AND 2 TABLETS BY MOUTH IN THE EVENING^Disp: 270 tablet^Rfl: 3 diclofenac (VOLTAREN) 1 % topical gel^Apply 2 g to affected area four times daily.^Disp: 200 g^Rfl: 2 colestipol (COLESTID) 1 gram tablet^TAKE 2 TABLETS BY MOUTH TWICE A DAY^Disp: 120 tablet^Rfl: 3 ELIQUIS 5 mg tab(s)^Take 5 mg by mouth twice daily.^Disp: ^Rfl: cholestyramine-sucrose (QUESTRAN) 4 gram powder^Take 4 g by mouth three times daily with meals.^Disp: ^Rfl: ferrous sulfate (IRON) 325 mg (65 mg iron) tablet^Take 1 tablet by mouth once daily.^Disp: 90 tablet^Rfl: 3 alendronate (FOSAMAX) 70 mg tablet^Take 1 tablet by mouth one time a week. In the morning with a full glass of water, on an empty stomach. Do not take anything else by mouth or lie down for the next 30 minutes.^Disp: 12 tablet^Rfl: 3 Mesalamine (LIALDA) 1.2 gram EC tablet^Take 4 tablets by mouth once daily.^Disp: 360 tablet^Rfl: 1 acetaminophen (TYLENOL) 500 mg tablet^Take 1 tablet by mouth every 4 hours as needed for pain.^Disp: ^Rfl: jgdeukh-mjejwqwow-puivcrg D3 500 mg-5 mcg (200 unit) per tablet^Take 1 tablet by mouth three times daily.^Disp: ^Rfl: MV with Xcr-Dbfuxlgf-Xkjqdu (CENTRUM SILVER) 0.4 mg-300 mcg- 250 mcg tab^Take 1 tablet by mouth once daily.^Disp: ^Rfl: celecoxib (CELEBREX) 200 mg capsule^Take 200 mg by mouth twice daily.^Disp: ^Rfl: sucralfate (CARAFATE) 100 mg/mL suspension^Take 10 mL by mouth four times daily.^Disp: 420 mL^Rfl: 1 atorvastatin (LIPITOR) 40 mg tablet^Take 1 tablet by mouth once daily.^Disp: 90 tablet^Rfl: 3 (Patient taking differently: Take 40 mg by mouth twice daily.) Bifidobacterium infantis (ALIGN ORAL)^Take by mouth once daily.^Disp: ^Rfl: belimumab (BENLYSTA INTRAVENOUS)^Inject intravenously. Patient reports she receives infusion every 3 months^Disp: ^Rfl: venlafaxine ER (EFFEXOR XR) 150 mg 24 hr capsule^Take 1 capsule by mouth once daily.^Disp: 90 capsule^Rfl: 3 levothyroxine (SYNTHROID) 75 mcg tablet^Take 75 mcg by mouth once daily.^Disp: ^Rfl: furosemide (LASIX) 40 mg tablet^Take 40 mg by mouth once daily. ^Disp: ^Rfl: busPIRone (BUSPAR) 10 mg tablet^Take 10 mg by mouth daily at bedtime. ^Disp: ^Rfl: spironolactone (ALDACTONE) 50 mg tablet^Take 50 mg by mouth once daily.^Disp: ^Rfl: Cholecalciferol, Vitamin D3, 2,000 unit cap^Take by mouth once daily.^Disp: ^Rfl: vitamin b complex(B COMPLEX TAB)^one daily^Disp: ^Rfl: 0 multivitamins w-minerals/lut(CENTRUM SILVER TAB)^Take one(1) tablet daily.^Disp: ^Rfl: 0 Allergies, medications, past surgical history, family history and past medical history were reviewed per this encounter. Objective PHYSICAL EXAM NVS: DP and PT pulses +2/4, CFT less than 3 seconds; right Dressing: None Clinical findings: Absence of edema, erythema, rubor: Right foot and toes Clinical correction; patient has keratotic tissue with superficial fissuring at the tip of the right second toe, she has keratotic tissue at the tip of the right third toe, there is no michael breakdown, no opening or drainage, no odor X-ray: No updated x-rays today ASSESSMENT Diagnosis (L97.511) Ulcer of toe of right foot, limited to breakdown of skin (HCC) (primary encounter diagnosis) (L84) Pre-ulcerative calluses No orders found for this visit on 03/12/23. PLAN OV, discussed current status, progress, prognosis. In order to perform a complete physical exam, right foot limited shaving of preulcerative keratotic area area was performed. This incidental service is integral to the evaluation and management visit in order to appropriately manage and treat the patient (for their complaint or for this visit). Patient instructed to use scant amount of Vaseline daily tip of second toe and continue to accommodate with appropriate shoes. Medical image was obtained today and compared [id number] with previous image, findings and progress were discussed with patient. FOLLOW-UP: 10 weeks SIGNATURE: Beverly Franco DPM PATIENT NAME: Jesus Wolf DATE: March 12, 2023 TIME: 9:48 AM Beverly Franco DPM documented in this encounter [facility] 2023 Miscellaneous Notes Spoke to patient offered 03/09 or 03/23 at [place] patient declined as she has commitments on those dates as well. Patient is on wait list Jesus Wolf is calling Dione Reinoso MD today with concern regarding Appointment. Patient hoping to be able to have this done in [place], and when the soonest that would be. When I tried rescheduled it denied me. Please advise and call patient. Thank you! Patient has been identified by name and birthdate. Person calling: self Call patient at: at home [phone] (home) [phone] (cell) Was an appointment scheduled: No Closing statement: Results or non-symptom based questions: Thank you for calling [facility], your call will be returned within the next business day. Sandra Irving Pss documented in this encounter [facility] 2023 Miscellaneous Notes Spoke to patient she is scheduled for colonoscopy with Dr Reinoso at on 04/02 offered sooner patient unable to make dates Images from the original note were not included. Dione Reinoso MD You 1 hour ago (12:19 PM) I think we need to assess her disease since her FCP remains significantly elevated Spoke to the patient. Pt agrees with planning colonoscopy. Dr. Reinoso, please review the order and sign. Cook Mayonnaise, please call the patient to make arrangements. Thank you, Bang Spears RN Spoke to the patient. She stats she is Feeling ok Pt is having 6-8 stools a day, mostly soft diarrhea She states this is the same bowel habits from before, no change. No blood. No other symptoms. Dr. Reinoso, do you still want colonoscopy? Please advise. Thank you, Bang Spears RN ----- Message from Dione Reinoso MD sent at 02/11/2023 11:33 AM EDT ----- Fcp still elevated, how is she feeling? May need to perform colonoscopy in the next 1-2 months documented in this encounter [facility] 02-16-2023 Miscellaneous Notes Most recent Rheumatology visit: 02/04/2023 (with Nadege Hawkins) Recent Office Visits - This Specialty 02/04/2023 Systemic lupus erythematosus, unspecified SLE type, unspecified organ involvement status (HCC) Rheumatology Nadege Hawkins DO 10/16/2022 Osteopenia, unspecified location [facility] PA-C 05/12/2022 Osteopenia, unspecified location [facility] PA-C Upcoming Rheumatology Appointments - Next 365 Days Visit Type Date Time Department VIDEO SPEC EST 04/10/2023 9:30 AM [facility]IN A50 VIDEO SPEC EST 04/23/2023 11:00 AM BONE MAIN Last Ophthalmology Check for Plaquenil (Hydroxychloroquine) Last OCT Macula Exam No resulted procedures found. Last Visual Field Exam No resulted procedures found. CBC: CBC Latest Ref Rng & Units 06/30/2022 02/04/2023 WBC 3.70 - 11.00 k/uL 6.55 8.34 HEMOGLOBIN 11.5 - 15.5 g/dL 13.4 13.5 HEMATOCRIT 36.0 - 46.0 % 39.7 41.8 PLATELETS 150 - 400 k/uL 243 279 ABS NEUT (ANC) 1.45 - 7.50 k/uL 3.67 5.07 ABS LYMPH 1.00 - 4.00 k/uL 1.82 2.04 Vitamin D: Vitamin D Latest Ref Rng & Units 07/31/2022 02/04/2023 VITAMIN D 25 HYDROXY 31.0 - 80.0 ng/mL 44.3 52.0 VIT D1, 25 DIHYDROXY 19.9 - 79.3 pg/mL - - LFT: CMP Latest Ref Rng & Units 09/09/2022 02/04/2023 SODIUM 136 - 144 mmol/L - 140 POTASSIUM 3.7 - 5.1 mmol/L - 5.0 CHLORIDE 97 - 105 mmol/L - 106(H) CO2 22 - 30 mmol/L - 20(L) GLUCOSE 74 - 99 mg/dL - 82 BUN 7 - 21 mg/dL - 24(H) CREATININE 0.58 - 0.96 mg/dL - 1.14(H) CALCIUM, 24 HR URINE 100.0 - 300.0 mg/24 hr - - CALCIUM, TOTAL 8.5 - 10.2 mg/dL 9.2 9.8 AST 13 - 35 U/L - 30 ALT 7 - 38 U/L - 20 ALKALINE PHOSPHATASE 34 - 123 U/L - 116 Hepatic Function: Creatinine: Creatinine Latest Ref Rng & Units 06/30/2022 02/04/2023 CREAT 0.58 - 0.96 mg/dL 0.96 1.14(H) NTX 5.0 - 65.0 nM BCE/mM Creatinine - - ESR/CRP: None on file in the last 6 months Uric Acid: None on file in the last 6 months Open Standing (Multiple Instance) Lab Orders Remain Interval Expires Ordered Last Rel. C3 COMPLEMENT BLD [[id number]] 4/6 Every 4 months 03/13/23 03/13/22 06/30/22 Auth. provider: Evelin Alicea MD Assoc. diagnoses: Membranous lupus nephritis syndrome (HCC), High risk medication use, Systemic lupus erythematosus, unspecified SLE type, unspecified organ involvement status (HCC) C4 COMPLEMENT BLD [[id number]] 4/6 Every 4 months 03/13/23 03/13/22 06/30/22 Auth. provider: Evelin Alicea MD Assoc. diagnoses: Membranous lupus nephritis syndrome (HCC), High risk medication use, Systemic lupus erythematosus, unspecified SLE type, unspecified organ involvement status (HCC) CBC + DIFF [SQCBCDIF] 4/6 Every 4 months 03/13/23 03/13/22 06/30/22 Auth. provider: Evelin Alicea MD Assoc. diagnoses: Membranous lupus nephritis syndrome (HCC), High risk medication use, Systemic lupus erythematosus, unspecified SLE type, unspecified organ involvement status (HCC) COMP METABOLIC PANEL [SQCMP] 4/6 Every 4 months 03/13/23 03/13/22 06/30/22 Auth. provider: Evelin Alicea MD Assoc. diagnoses: Membranous lupus nephritis syndrome (HCC), High risk medication use, Systemic lupus erythematosus, unspecified SLE type, unspecified organ involvement status (HCC) SED RATE WESTERGREN [SQWSR] 4/6 Every 4 months 03/13/23 03/13/22 06/30/22 Auth. provider: Evelin Alicea MD Assoc. diagnoses: Membranous lupus nephritis syndrome (HCC), High risk medication use, Systemic lupus erythematosus, unspecified SLE type, unspecified organ involvement status (HCC) URINALYSIS, WITH MICROSCOPIC [SQUAWMIC] 5/6 Every 4 months 03/13/23 03/13/22 06/30/22 Auth. provider: Evelin Alicea MD Assoc. diagnoses: Membranous lupus nephritis syndrome (HCC), High risk medication use, Systemic lupus erythematosus, unspecified SLE type, unspecified organ involvement status (HCC) C-REACTIVE PROTEIN (CRP) [SQCRP] 4/6 Every 4 months 03/13/23 03/13/22 06/30/22 Auth. provider: Evelin Alicea MD Assoc. diagnoses: Membranous lupus nephritis syndrome (HCC), High risk medication use, Systemic lupus erythematosus, unspecified SLE type, unspecified organ involvement status (HCC) Open Future (Single Instance) Lab Orders None Requested Prescriptions Pending Prescriptions Disp Refills hydrOXYchloroQUINE (PLAQUENIL) 200 mg tablet [Pharmacy Med Name: HYDROXYCHLOROQUINE 200 MG TAB] 180 tablet 2 Sig: take 1 tablet by mouth twice a day with food documented in this encounter [facility] 02-12-2023 Note HNO ID: [id number] Author: Beverly Franco DPM Service: ? Author Type: Physician Type: Progress Notes Filed: 02/12/2023 2:51 PM Note Text: SERVICE DATE: February 12, 2023 PCP: Wojciech Treviño MD, DO Subjective Patient ID: Jesus is a 67 year old female. Patient presents today for follow-up of ulceration on the plantar surface of the right first MTPJ stating that at site appears to be doing well but 2 days ago she snagged the tip of her second toe on an eye hook in the floor and now has a wound at that site. She denies fever, chills, malaise Chief Complaint: Patient presents with: Ulcer: Right second ulcer PAIN EVALUATION No data found in the last 1 encounters. HPI patient has had ulcer underlying right first metatarsal head which is being treated through offloading with surgical shoe and appropriately modified peg assist insert. 2 days ago she caught the second toe on and I hook in the floor and did not have her shoe on and now has a wound at that site. Patient is anticoagulated with Eliquis. Patient has been treating site with Neosporin cream Review of Systems ACTIVE PROBLEM LIST Edema Proteinuria Essential Hypertension Atrial Fibrillation (Hcc) Membranous Glomerulonephritis Vitamin D Deficiency Sle (Systemic Lupus Erythematosus) (Hcc) Fibromyalgia Sleep Apnea Encounter for Long-Term (Current) Use of Other High-Risk Medications Osteoarthritis of ankle and foot HALLUX VALGUS ACQUIRED Other Hammer Toe (Acquired) Enthesopathy of Ankle and Tarsus, Unspecified Lesion of Plantar Nerve Neuralgia, Neuritis, and Radiculitis, Unspecified Foot Pain, Left Other Synovitis and Tenosynovitis, Unspecified Ankle and Foot Osteoarthrosis of Ankle and Foot, Left Synovitis of Left Foot Synovitis of Right Foot Vocal Cord Edema Primary Osteoarthritis of Both Feet Synovitis of Foot Conjunctivitis Keratopathy Obesity, Class III, BMI >= 40 Hypothyroidism Chronic Congestive Heart Failure (Hcc) Status Post Right Hip Replacement S/P Total Hip Arthroplasty Mixed Hyperlipidemia Obesity, Class II, Bmi 35-39.9 Thoracic Ascending Aortic Aneurysm (Hcc) Hypercalcemia Hyperparathyroid (Hcc) PAST MEDICAL HISTORY Diagnosis Date Arrhythmia Atrial fibrillation (HCC) on coumadin Herniated intervertebral disk HTN (hypertension) Hyperlipemia Kidney disease MONI (obstructive sleep apnea) no longer using CPAP since 60 lb weight loss Other acute pancreatitis with uninfected necrosis SLE (systemic lupus erythematosus) ([facility]) Sleep apnea 07/29/2012 PAST SURGICAL HISTORY Procedure Laterality Date APPENDECTOMY CARPAL TUNNEL RIGHT WRIST surgical correction COLONOSCOPY 05/10/2019 [facility] COLONOSCOPY GEN ANES 07/23/2020 Dr. Reinoso/Diverticulosis/Hemorrhoids/ Ulcerative Colitis/Rpt in 2 yrs. EGD EUS 01/11/2020 [facility] LASIK Right prior to 1999 MRI PANC/JEANIE WO/W IVCON 12/20/2019 OVARIAN CYSTECTOMY PAST SURGICAL HISTORY OF 07/2013 bilateral foot procedure, Sherry PAST SURGICAL HISTORY OF Ablation X2 TONSILLECTOMY HX FAMILY HISTORY Problem Relation Age of Onset Alzheimer's Disease Father Hypertension Father Cataract Mother Hypertension Mother Colon Cancer Mother Cataract Sister Hypertension Sister Colon Cancer Paternal Uncle Social History Tobacco Use Smoking status: Never Smokeless tobacco: Never Vaping Use Vaping Use: Never used Substance Use Topics Alcohol use: Yes Comment: very rare Drug use: No Comment: denies tx for drug/alcohol abuse in the past. ALLERGIES Allergen Reactions Dofetilide Other: See Comments, Anaphylaxis V-tach Iodinated Contrast * Other: See Comments (Deep seafood) hot flashes, sweating. Other reaction(s): over heated/nausea Sulfa (Sulfonamide * Vomiting total body swelling and kidney shut down, body aches and rash Contrast Dye Other: See Comments (Deep seafood) hot flashes, sweating. Iodine Other: See Comments Hot flashes and sweating Codeine Other: See Comments severe headaches Compazine [Prochlor* Other: See Comments loss control of left side of face Tetnus [Tetanus Vac* Other: See Comments red spot in area of shot MEDICATIONS: metoprolol succinate ER (TOPROL XL) 50 mg 24 hr tabletTAKE 1 TABLET BY MOUTH IN THE MORNING AND 2 TABLETS BY MOUTH IN THE EVENINGDisp: 270 tabletRfl: 3 diclofenac (VOLTAREN) 1 % topical gelApply 2 g to affected area four times daily.Disp: 200 gRfl: 2 colestipol (COLESTID) 1 gram tabletTAKE 2 TABLETS BY MOUTH TWICE A DAYDisp: 120 tabletRfl: 3 ELIQUIS 5 mg tab(s)Take 5 mg by mouth twice daily.Disp: Rfl: cholestyramine-sucrose (QUESTRAN) 4 gram powderTake 4 g by mouth three times daily with meals.Disp: Rfl: ferrous sulfate (IRON) 325 mg (65 mg iron) tabletTake 1 tablet by mouth once daily.Disp: 90 tabletRfl: [address] (PROTONIX) 40 mg tabletTake 1 tablet by mouth twice daily. (more content not included)... [facility] 02-12-2023 History of Present illness Narrative SERVICE DATE: February 12, 2023 PCP: Wojciech Treviño MD, DO Subjective Patient ID: Jesus is a 67 year old female. Patient presents today for follow-up of ulceration on the plantar surface of the right first MTPJ stating that at site appears to be doing well but 2 days ago she snagged the tip of her second toe on an eye hook in the floor and now has a wound at that site. She denies fever, chills, malaise Chief Complaint: Patient presents with: Ulcer: Right second ulcer PAIN EVALUATION No data found in the last 1 encounters. HPI patient has had ulcer underlying right first metatarsal head which is being treated through offloading with surgical shoe and appropriately modified peg assist insert. 2 days ago she caught the second toe on and I hook in the floor and did not have her shoe on and now has a wound at that site. Patient is anticoagulated with Eliquis. Patient has been treating site with Neosporin cream Review of Systems ACTIVE PROBLEM LIST Edema Proteinuria Essential Hypertension Atrial Fibrillation (Hcc) Membranous Glomerulonephritis Vitamin D Deficiency Sle (Systemic Lupus Erythematosus) (Hcc) Fibromyalgia Sleep Apnea Encounter for Long-Term (Current) Use of Other High-Risk Medications Osteoarthritis of ankle and foot HALLUX VALGUS ACQUIRED Other Hammer Toe (Acquired) Enthesopathy of Ankle and Tarsus, Unspecified Lesion of Plantar Nerve Neuralgia, Neuritis, and Radiculitis, Unspecified Foot Pain, Left Other Synovitis and Tenosynovitis, Unspecified Ankle and Foot Osteoarthrosis of Ankle and Foot, Left Synovitis of Left Foot Synovitis of Right Foot Vocal Cord Edema Primary Osteoarthritis of Both Feet Synovitis of Foot Conjunctivitis Keratopathy Obesity, Class III, BMI >= 40 Hypothyroidism Chronic Congestive Heart Failure (Hcc) Status Post Right Hip Replacement S/P Total Hip Arthroplasty Mixed Hyperlipidemia Obesity, Class II, Bmi 35-39.9 Thoracic Ascending Aortic Aneurysm (Hcc) Hypercalcemia Hyperparathyroid (Hcc) PAST MEDICAL HISTORY Diagnosis Date Arrhythmia Atrial fibrillation (HCC) on coumadin Herniated intervertebral disk HTN (hypertension) Hyperlipemia Kidney disease MONI (obstructive sleep apnea) no longer using CPAP since 60 lb weight loss Other acute pancreatitis with uninfected necrosis SLE (systemic lupus erythematosus) (HCC) Sleep apnea 07/29/2012 PAST SURGICAL HISTORY Procedure Laterality Date APPENDECTOMY CARPAL TUNNEL RIGHT WRIST surgical correction COLONOSCOPY 05/10/2019 [facility] COLONOSCOPY GEN ANES 07/23/2020 Dr. Reinoso/Diverticulosis/Hemorrhoids/ Ulcerative Colitis/Rpt in 2 yrs. EGD EUS 01/11/2020 [facility] LASIK Right prior to 1999 MRI PANC/JEANIE WO/W IVCON 12/20/2019 OVARIAN CYSTECTOMY PAST SURGICAL HISTORY OF 07/2013 bilateral foot procedure, Sherry PAST SURGICAL HISTORY OF Ablation X2 TONSILLECTOMY HX FAMILY HISTORY Problem Relation Age of Onset Alzheimer's Disease Father Hypertension Father Cataract Mother Hypertension Mother Colon Cancer Mother Cataract Sister Hypertension Sister Colon Cancer Paternal Uncle Social History Tobacco Use Smoking status: Never Smokeless tobacco: Never Vaping Use Vaping Use: Never used Substance Use Topics Alcohol use: Yes Comment: very rare Drug use: No Comment: denies tx for drug/alcohol abuse in the past. ALLERGIES Allergen Reactions Dofetilide Other: See Comments, Anaphylaxis V-tach Iodinated Contrast * Other: See Comments (Deep seafood) hot flashes, sweating. Other reaction(s): over heated/nausea Sulfa (Sulfonamide * Vomiting total body swelling and kidney shut down, body aches and rash Contrast Dye Other: See Comments (Deep seafood) hot flashes, sweating. Iodine Other: See Comments Hot flashes and sweating Codeine Other: See Comments severe headaches Compazine [Prochlor* Other: See Comments loss control of left side of face Tetnus [Tetanus Vac* Other: See Comments red spot in area of shot MEDICATIONS: metoprolol succinate ER (TOPROL XL) 50 mg 24 hr tablet^TAKE 1 TABLET BY MOUTH IN THE MORNING AND 2 TABLETS BY MOUTH IN THE EVENING^Disp: 270 tablet^Rfl: 3 diclofenac (VOLTAREN) 1 % topical gel^Apply 2 g to affected area four times daily.^Disp: 200 g^Rfl: 2 colestipol (COLESTID) 1 gram tablet^TAKE 2 TABLETS BY MOUTH TWICE A DAY^Disp: 120 tablet^Rfl: 3 ELIQUIS 5 mg tab(s)^Take 5 mg by mouth twice daily.^Disp: ^Rfl: cholestyramine-sucrose (QUESTRAN) 4 gram powder^Take 4 g by mouth three times daily with meals.^Disp: ^Rfl: ferrous sulfate (IRON) 325 mg (65 mg iron) tablet^Take 1 tablet by mouth once daily.^Disp: 90 tablet^Rfl: [address] (PROTONIX) 40 mg tablet^Take 1 tablet by mouth twice daily.^Disp: 60 tablet^Rfl: 3 alendronate (FOSAMAX) 70 mg tablet^Take 1 tablet by mouth one time a week. In the morning with a full glass of water, on an empty stomach. Do not take anything else by mouth or lie down for the next 30 minutes.^Disp: 12 tablet^Rfl: 3 Mesalamine (LIALDA) 1.2 gram EC tablet^Take 4 tablets by mouth once daily.^Disp: 360 tablet^Rfl: 1 acetaminophen (TYLENOL) 500 mg tablet^Take 1 tablet by mouth every 4 hours as needed for pain.^Disp: ^Rfl: ygpvlxu-gmzqopass-xvrmrde D3 500 mg-5 mcg (200 unit) per tablet^Take 1 tablet by mouth three times daily.^Disp: ^Rfl: MV with Ejz-Lurykgld-Ztfjlu (CENTRUM SILVER) 0.4 mg-300 mcg- 250 mcg tab^Take 1 tablet by mouth once daily.^Disp: ^Rfl: celecoxib (CELEBREX) 200 mg capsule^Take 200 mg by mouth twice daily.^Disp: ^Rfl: hydrOXYchloroQUINE (PLAQUENIL) 200 mg tablet^take 1 tablet by mouth twice a day with food^Disp: 180 tablet^Rfl: 2 sucralfate (CARAFATE) 100 mg/mL suspension^Take 10 mL by mouth four times daily.^Disp: 420 mL^Rfl: 1 atorvastatin (LIPITOR) 40 mg tablet^Take 1 tablet by mouth once daily.^Disp: 90 tablet^Rfl: 3 (Patient taking differently: Take 40 mg by mouth twice daily.) Bifidobacterium infantis (ALIGN ORAL)^Take by mouth once daily.^Disp: ^Rfl: belimumab (BENLYSTA INTRAVENOUS)^Inject intravenously. Patient reports she receives infusion every 3 months^Disp: ^Rfl: venlafaxine ER (EFFEXOR XR) 150 mg 24 hr capsule^Take 1 capsule by mouth once daily.^Disp: 90 capsule^Rfl: 3 levothyroxine (SYNTHROID) 75 mcg tablet^Take 75 mcg by mouth once daily.^Disp: ^Rfl: furosemide (LASIX) 40 mg tablet^Take 40 mg by mouth once daily. ^Disp: ^Rfl: busPIRone (BUSPAR) 10 mg tablet^Take 10 mg by mouth daily at bedtime. ^Disp: ^Rfl: spironolactone (ALDACTONE) 50 mg tablet^Take 50 mg by mouth once daily.^Disp: ^Rfl: Cholecalciferol, Vitamin D3, 2,000 unit cap^Take by mouth once daily.^Disp: ^Rfl: vitamin b complex(B COMPLEX TAB)^one daily^Disp: ^Rfl: 0 multivitamins w-minerals/lut(CENTRUM SILVER TAB)^Take one(1) tablet daily.^Disp: ^Rfl: 0 cephALEXin (KEFLEX) 500 mg capsule^Take 1 capsule by mouth four times daily.^Disp: 28 capsule^Rfl: 0 Allergies, medications, past surgical history, family history and past medical history were reviewed per this encounter. PHYSICAL EXAM O: Pedal pulses are patent, CFT less than 3 seconds; right. Neurological: Intact light touch sensation right Hair: Absent right. Temp: Warm to tepid tibia to toes right Skin: Patient has superficial ulceration at the distal tip of the right second toe medial to the midline with rubor extending proximally to the DIP joint. Keratotic tissue underlying right first MTPJ with no michael breakdown Clinical: Mild edema right second toe DIP joint distally X-Ray: Clinical image was obtained today, no x-rays Assessment/Plan ASSESSMENT Diagnosis (L97.511) Ulcer of toe of right foot, limited to breakdown of skin (HCC) (primary encounter diagnosis) (L84) Pre-ulcerative calluses (L03.031) Cellulitis of second toe of right foot No orders found for this visit on 02/12/23. PLAN Reviewed complaint, pathology, etiology, anatomy, treatment options, prognosis, short and custodial expectations, and potential risks and complications. New peg assist insert was inserted in shoe after appropriate modifications, wound was dressed with Betadine moist to dry dressing, patient is to change daily until wound bed dries, prescription provided for cephalexin 500 mg 4 times daily. I discussed signs and symptoms of ascending cellulitis, if any of these are observed by patient she understands that I will not be in the office until middle of next week and she should go immediately to emergency room FOLLOW-UP: Return in about 4 weeks (around 03/12/2023). SIGNATURE: Beverly Franco DPM PATIENT NAME: Jesus Wolf DATE: February 12, 2023 TIME: 11:44 AM Beverly Franco DPM documented in this encounter [facility] 02-09-2023 Miscellaneous Notes Refill ordered. Patient will need to be seen by provider (MD or AUGUSTIN) before any additional refills are given. Please call to schedule follow up with Dr Mcfadden or AUGUSTIN. Thank you. The following approved medication requests have been transmitted electronically. Requested Prescriptions Pending Prescriptions Disp Refills metoprolol succinate ER (TOPROL XL) 50 mg 24 hr tablet [Pharmacy Med Name: METOPROLOL SUCC ER 50 MG TAB] 270 tablet 3 Sig: TAKE 1 TABLET BY MOUTH IN THE MORNING AND 2 TABLETS BY MOUTH IN THE EVENING Hallie Young APRN.ASSET PROTECTION DETECTIVE Dev 01/01/22 siddhartha Nov - none documented in this encounter [facility] 02-09-2023 Miscellaneous Notes Phoned pt and spoke with her. Dr. Painting has reviewed her labs and they are good. Dr. Painting did notice her creatinine had gone up a bit and asked that Jesus stays hydrated. Pt states she will. Sarai Menjivar RN documented in this encounter [facility] 02-04-2023 Note HNO ID: [id number] Author: Nadege Hawkins, DO Service: ? Author Type: Physician Type: Progress Notes Filed: 02/04/2023 4:07 PM Note Text: [facility] DEPARTMENT OF RHEUMATIC AND IMMUNOLOGIC DISEASES This consult was requested by the doctor listed below for an opinion regarding the chief complaint listed below, and my final recommendations will be communicated to the requesting health care provider by way of the shared medical record for internal providers or letter via the U.S. Postal Service for external providers. Referring Physician: No referring provider defined for this encounter. SUBJECTIVE: Reason for visit: SLE History of Present Illness: Jesus Wolf is a 67 year old female with PMHx significant for HTN, HLD, HFpEF, MONI not on CPAP, pAF s/p PVI 2x, hypothyroidism, primary hyperparathyroidism, ulcerative colitis, gallstone pancreatitis, IPMN, osteopenia is evaluated in the Rheumatology Clinic for SLE. 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 There is no endocapillary hypercellularity, karyorrhexis, fibrinoid necrosis, rupture of glomerular basement membranes, crescents, wireloops or hyaline thrombi. There is minimal, patchy tubulointerstitial atrophy and fibrosis and a mild chronic interstitial infiltrate. Vessels are unremarkable. Immunofluorescence: There is finely granular glomerular basement membrane and mesangial positivity for kappa (3+), lambda (3+), C3c (3+), IgG (2+), IgA (1+), IgM (1+) and C1q (faint). There is also granular tubular basement membrane positivity for kappa, lambda and C3c. Albumin is negative. Electron microscopy: There are subepithelial and mesangial electron dense deposits, with overlying epithelial foot processes effacement Last seen by Dr. Hardin 02/2022: SLE and membraneous nephropathy. Failed cyclosporine. Started MMF 06/26, Benlysta 09/28 every month then starting in February 2012 started every two months Jun 2012. Aug 2013 Benlysta moved to every 3 months. Also on Plaquenil and cellcept 1g BID. August 2018 cellcept was decreased to 1500 mg daily because of recurrent URI . March 2020 admitted with CHF A. fib on Eliquis DX 1998 ulcerative colitis on mesalamine therapy Has pancreatitis and IPMN. Takes prednisone before benlysta because of burning eye symptoms with Benlysta , no anaphylaxis Had GI evaluation and general surgery and thought the pancreatitis thought to be to gall bladder stone Had a hip replacement right hip in December 2020 Tapering cellcept on 1 gram daily Does not use the CPAP Had eye exam in 2021 and was normal Had recent UTI was treated with antibiotics then developed C. difficile feels better now. Patient has been having joint pain in her shoulders, knees and fingers, achy in nature, upon movement, for the past 4-5 years, overall feels worse, no redness, swelling, or warmth, but reports intermittent episodes of severe shoulder/arm pain that limits her movements, and is worse when she lays it. Patient reports no numbness, but reports weakness, has to walk slower, difficult rising from a sitting to a standing position related to pain and weakness, no upper extremity weakness, relates to the use of prednisone in 2009, chronically, improves with physical therapy. No rashes, no oral or nasal ulcers, still reports photosensitivity, oral lesion, painful, started Thursday night, Thursday morning, tries to keep it moist. Reports Raynaud's in the cold. Has morning stiffness which lasts 15-20 minutes. No night sweats, fever, weight loss. Current Medications: MMF 500 mg BID, down from 1 g bid due to recurrent URI HCQ 400 mg once daily Belimumab infusions every months PMHx: PAST MEDICAL HISTORY Diagnosis Date Arrhythmia Atrial fibrillation (HCC) on coumadin Herniated intervertebral disk HTN (hypertension) Hyperlipemia Kidney disease MONI (obstructive sleep apnea) no longer using CPAP since 60 lb weight loss Other acute pancreatitis with uninfected necrosis SLE (systemic lupus erythematosus) (HCC) Sleep apnea 07/29/2012 PSHx: PAST SURGICAL HISTORY Procedure Laterality Date APPENDECTOMY CARPAL TUNNEL RIGHT WRIST surgical correction COLONOSCOPY 05/10/2019 [facility] COLONOSCOPY GEN ANES 07/23/2020 Dr. Reinoso/Diverticulosis/Hemorrhoids/ Ulcerative Colitis/Rpt in 2 yrs. EGD EUS 01/11/2020 [facility] LASIK Right prior to 1999 MRI PANC/JEANIE WO/W IVCON 12/20/2019 OVARIAN CYSTECTOMY PAST SURGICAL HISTORY OF 07/2013 bilateral foot procedure, [place] PAST SURGICAL HISTORY OF Ablation X2 TONSILLECTOMY HX FamHx: FAMILY HISTORY Problem Relation Age of Onset Alzheimer's Disease Fa (more content not included)... [facility] 02-04-2023 Instructions Nadege Hawkins DO - 02/04/2023 2:00 PM EDT Stop Cellcept (mycophenolate) Blood work and urine today on the first floor Continue Plaquenil 2 tablets/daily I will see you back in 2 months for follow up. documented in this encounter [facility] 02-04-2023 History of Present illness Narrative Images from the original note were not included. [facility] DEPARTMENT OF RHEUMATIC AND IMMUNOLOGIC DISEASES This consult was requested by the doctor listed below for an opinion regarding the chief complaint listed below, and my final recommendations will be communicated to the requesting health care provider by way of the shared medical record for internal providers or letter via the U.S. Postal Service for external providers. Referring Physician: No referring provider defined for this encounter. SUBJECTIVE: Reason for visit: SLE History of Present Illness: Jesus Wolf is a 67 year old female with PMHx significant for HTN, HLD, HFpEF, MONI not on CPAP, pAF s/p PVI 2x, hypothyroidism, primary hyperparathyroidism, ulcerative colitis, gallstone pancreatitis, IPMN, osteopenia is evaluated in the Rheumatology Clinic for SLE. 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 There is no endocapillary hypercellularity, karyorrhexis, fibrinoid necrosis, rupture of glomerular basement membranes, crescents, wireloops or hyaline thrombi. There is minimal, patchy tubulointerstitial atrophy and fibrosis and a mild chronic interstitial infiltrate. Vessels are unremarkable. Immunofluorescence: There is finely granular glomerular basement membrane and mesangial positivity for kappa (3+), lambda (3+), C3c (3+), IgG (2+), IgA (1+), IgM (1+) and C1q (faint). There is also granular tubular basement membrane positivity for kappa, lambda and C3c. Albumin is negative. Electron microscopy: There are subepithelial and mesangial electron dense deposits, with overlying epithelial foot processes effacement Last seen by Dr. Hardin 02/2022: SLE and membraneous nephropathy. Failed cyclosporine. Started MMF 06/26, Benlysta 09/28 every month then starting in February 2012 started every two months Jun 2012. Aug 2013 Benlysta moved to every 3 months. Also on Plaquenil and cellcept 1g BID. August 2018 cellcept was decreased to 1500 mg daily because of recurrent URI . March 2020 admitted with CHF A. fib on Eliquis DX 1998 ulcerative colitis on mesalamine therapy Has pancreatitis and IPMN. Takes prednisone before benlysta because of burning eye symptoms with Benlysta , no anaphylaxis Had GI evaluation and general surgery and thought the pancreatitis thought to be to gall bladder stone Had a hip replacement right hip in December 2020 Tapering cellcept on 1 gram daily Does not use the CPAP Had eye exam in 2021 and was normal Had recent UTI was treated with antibiotics then developed C. difficile feels better now. Patient has been having joint pain in her shoulders, knees and fingers, achy in nature, upon movement, for the past 4-5 years, overall feels worse, no redness, swelling, or warmth, but reports intermittent episodes of severe shoulder/arm pain that limits her movements, and is worse when she lays it. Patient reports no numbness, but reports weakness, has to walk slower, difficult rising from a sitting to a standing position related to pain and weakness, no upper extremity weakness, relates to the use of prednisone in 2009, chronically, improves with physical therapy. No rashes, no oral or nasal ulcers, still reports photosensitivity, oral lesion, painful, started Thursday night, Thursday morning, tries to keep it moist. Reports Raynaud's in the cold. Has morning stiffness which lasts 15-20 minutes. No night sweats, fever, weight loss. Current Medications: MMF 500 mg BID, down from 1 g bid due to recurrent URI HCQ 400 mg once daily Belimumab infusions every months PMHx: PAST MEDICAL HISTORY Diagnosis Date Arrhythmia Atrial fibrillation (HCC) on coumadin Herniated intervertebral disk HTN (hypertension) Hyperlipemia Kidney disease MONI (obstructive sleep apnea) no longer using CPAP since 60 lb weight loss Other acute pancreatitis with uninfected necrosis SLE (systemic lupus erythematosus) (HCC) Sleep apnea 07/29/2012 PSHx: PAST SURGICAL HISTORY Procedure Laterality Date APPENDECTOMY CARPAL TUNNEL RIGHT WRIST surgical correction COLONOSCOPY 05/10/2019 [facility] COLONOSCOPY GEN ANES 07/23/2020 Dr. Reinoso/Diverticulosis/Hemorrhoids/ Ulcerative Colitis/Rpt in 2 yrs. EGD EUS 01/11/2020 [facility] LASIK Right prior to 1999 MRI PANC/JEANIE WO/W IVCON 12/20/2019 OVARIAN CYSTECTOMY PAST SURGICAL HISTORY OF 07/2013 bilateral foot procedure, [place] PAST SURGICAL HISTORY OF Ablation X2 TONSILLECTOMY HX FamHx: FAMILY HISTORY Problem Relation Age of Onset Alzheimer's Disease Father Hypertension Father Cataract Mother Hypertension Mother Colon Cancer Mother Cataract Sister Hypertension Sister Colon Cancer Paternal Uncle SocHx: Social History Tobacco Use Smoking status: Never Smokeless tobacco: Never Vaping Use Vaping Use: Never used Substance Use Topics Alcohol use: Yes Comment: very rare Drug use: No Comment: denies tx for drug/alcohol abuse in the past. MEDICATIONS: colestipol (COLESTID) 1 gram tablet^TAKE 2 TABLETS BY MOUTH TWICE A DAY^Disp: 120 tablet^Rfl: 3 ELIQUIS 5 mg tab(s)^Take 5 mg by mouth twice daily.^Disp: ^Rfl: ferrous sulfate (IRON) 325 mg (65 mg iron) tablet^Take 1 tablet by mouth once daily.^Disp: 90 tablet^Rfl: [address] (PROTONIX) 40 mg tablet^Take 1 tablet by mouth twice daily.^Disp: 60 tablet^Rfl: 3 Mesalamine (LIALDA) 1.2 gram EC tablet^Take 4 tablets by mouth once daily.^Disp: 360 tablet^Rfl: 1 MV with Tan-Juamltjf-Aftglg (CENTRUM SILVER) 0.4 mg-300 mcg- 250 mcg tab^Take 1 tablet by mouth once daily.^Disp: ^Rfl: mycophenolate Mofetil (CELLCEPT) 500 mg tablet^take 1 tablet by mouth daily^Disp: 30 tablet^Rfl: 11 celecoxib (CELEBREX) 200 mg capsule^Take 200 mg by mouth twice daily.^Disp: ^Rfl: hydrOXYchloroQUINE (PLAQUENIL) 200 mg tablet^take 1 tablet by mouth twice a day with food^Disp: 180 tablet^Rfl: 2 metoprolol succinate ER (TOPROL XL) 50 mg 24 hr tablet^50mg in am and 100mg in pm.^Disp: 270 tablet^Rfl: 3 sucralfate (CARAFATE) 100 mg/mL suspension^Take 10 mL by mouth four times daily.^Disp: 420 mL^Rfl: 1 belimumab (BENLYSTA INTRAVENOUS)^Inject intravenously. Patient reports she receives infusion every 3 months^Disp: ^Rfl: venlafaxine ER (EFFEXOR XR) 150 mg 24 hr capsule^Take 1 capsule by mouth once daily.^Disp: 90 capsule^Rfl: 3 levothyroxine (SYNTHROID) 75 mcg tablet^Take 75 mcg by mouth once daily.^Disp: ^Rfl: furosemide (LASIX) 40 mg tablet^Take 40 mg by mouth once daily. ^Disp: ^Rfl: busPIRone (BUSPAR) 10 mg tablet^Take 10 mg by mouth daily at bedtime. ^Disp: ^Rfl: spironolactone (ALDACTONE) 50 mg tablet^Take 50 mg by mouth once daily.^Disp: ^Rfl: Cholecalciferol, Vitamin D3, 2,000 unit cap^Take by mouth once daily.^Disp: ^Rfl: vitamin b complex(B COMPLEX TAB)^one daily^Disp: ^Rfl: 0 multivitamins w-minerals/lut(CENTRUM SILVER TAB)^Take one(1) tablet daily.^Disp: ^Rfl: 0 cholestyramine-sucrose (QUESTRAN) 4 gram powder^Take 4 g by mouth three times daily with meals.^Disp: ^Rfl: (Patient not taking: Reported on 02/04/2023) vancomycin (VANCOCIN HCL) 125 mg capsule^Take 1 capsule by mouth four times daily for 14 days, THEN 1 capsule twice daily for 7 days, THEN 1 capsule once daily for 7 days, THEN 1 capsule every other day in the morning for 14 days.^Disp: 84 capsule^Rfl: 0 (Patient not taking: Reported on 02/04/2023) alendronate (FOSAMAX) 70 mg tablet^Take 1 tablet by mouth one time a week. In the morning with a full glass of water, on an empty stomach. Do not take anything else by mouth or lie down for the next 30 minutes.^Disp: 12 tablet^Rfl: 3 acetaminophen (TYLENOL) 500 mg tablet^Take 1 tablet by mouth every 4 hours as needed for pain.^Disp: ^Rfl: rsequfk-brshzzonh-qxzbadl D3 500 mg-5 mcg (200 unit) per tablet^Take 1 tablet by mouth three times daily.^Disp: ^Rfl: (Patient not taking: Reported on 02/04/2023) atorvastatin (LIPITOR) 40 mg tablet^Take 1 tablet by mouth once daily.^Disp: 90 tablet^Rfl: 3 (Patient taking differently: Take 40 mg by mouth twice daily.) Bifidobacterium infantis (ALIGN ORAL)^Take by mouth once daily. ^Disp: ^Rfl: (Patient not taking: Reported on 02/04/2023) ALLERGIES: ALLERGIES Allergen Reactions Dofetilide Other: See Comments, Anaphylaxis V-tach Iodinated Contrast * Other: See Comments (Deep seafood) hot flashes, sweating. Other reaction(s): over heated/nausea Sulfa (Sulfonamide * Vomiting total body swelling and kidney shut down, body aches and rash Contrast Dye Other: See Comments (Deep seafood) hot flashes, sweating. Iodine Unknown Codeine Other: See Comments severe headaches Compazine [Prochlor* Other: See Comments loss control of left side of face Tetnus [Tetanus Vac* Other: See Comments red spot in area of shot OBJECTIVE: Physical Examination: Vitals: BP 116/54 Pulse 72 Temp 36.1 C (97 F) (Temporal) Wt 113.4 kg (250 lb) LMP 07/17/2011 (Within Years) BMI 40.35 kg/m General: Looks well, NAD, A & Ox3. HEENT: +faint pink flush to cheeks. Neck: No LAD. CVS: RRR, nl S1/S2, no R/M/G,. Resp: CTAB. No rales or wheezing. Ext: Good DP/PTs palpable bilaterally. No edema. Neuro: Power 5/5 throughout. Gait Normal. Skin: No rash. No ulcers. Musculoskeletal: Spine: Good ROM, no TTP. Neck: Good flexion/extension/lateral rotation Shoulders: No swelling, no tenderness, good ROM Elbows: No swelling, no tenderness, no flexion contractures, no nodules, good ROM Wrists: No swelling, no tenderness, no limitation in flexion and extension Hands: No evidence of synovitis. Able to make full fist bilaterally. +CMC squaring b/l Investigations: Labs: WBC Date Value Ref Range Status 06/30/2022 6.55 3.70 - 11.00 k/uL Final Hemoglobin Date Value Ref Range Status 06/30/2022 13.4 11.5 - 15.5 g/dL Final Hematocrit Date Value Ref Range Status 06/30/2022 39.7 36.0 - 46.0 % Final Platelet Count Date Value Ref Range Status 06/30/2022 243 150 - 400 k/uL Final Abs Lymph Date Value Ref Range Status 06/30/2022 1.82 1.00 - 4.00 k/uL Final Creatinine Date Value Ref Range Status 06/30/2022 0.96 0.58 - 0.96 mg/dL Final Glucose Date Value Ref Range Status 06/30/2022 103 (H) 74 - 99 mg/dL Final Comment: The [place] [employer] (ADA) provides guidance for cutoff values for fasting glucose and random glucose. The ADA defines fasting as no caloric intake for at least 8 hours. Fasting plasma glucose results between 100 to 125 mg/dL indicate increased risk for diabetes (prediabetes). Fasting plasma glucose results greater than or equal to 126 mg/dL meet the criteria for diagnosis of diabetes. In the absence of unequivocal hyperglycemia, results should be confirmed by repeat testing. In a patient with classic symptoms of hyperglycemia or hyperglycemic crisis, random plasma glucose results greater than or equal to 200 mg/dL meet the criteria for diagnosis of diabetes. Reference: Standards of Medical Care in Diabetes 2016, [place] [employer]. Diabetes Care. 2016.39(Suppl 1). AST Date Value Ref Range Status 06/30/2022 24 13 - 35 U/L Final ALT Date Value Ref Range Status 06/30/2022 19 7 - 38 U/L Final Sed Rate, Westergren Date Value Ref Range Status 06/30/2022 5 0 - 20 mm/hr Final CRP Date Value Ref Range Status 06/30/2022 <0.3 <0.9 mg/dL Final Alkaline Phosphatase Date Value Ref Range Status 06/30/2022 119 34 - 123 U/L Final IMPRESSIONS/RECOMMENDATIONS: Systemic Lupus Erythematosus 2019 ACR/EULAR classification criteria: PARVEZ, +dsDNA antibodies with membranous lupus nephritis. Clinical symptoms of photosensitivity with malar rash and arthralgia. She will stop mycophenolate as I believe she has achieved renal remission and the risk of infections outweighs the benefit of this medication.We will continue HCQ and belimumab 10 mg/kg iv infusions every 3 months. We have discussed the risks and toxicities associated with the use of these medications and the appropriate lab monitoring. We will obtain SLE labs today. 2. 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 I have prescribed for her a course of Voltaren Gel 1% for her to use four times/daily. Health Maintenance: Vaccinations: Prevnar 20 given today. She is otherwise up to date with all vaccines. Advised COVID booster this fall. Bone Health: Seeing metabolic Bone. HCQ monitorin10/2022. Scanned into documents. RTC 3 months. Nadege Hawkins DO documented in this encounter [facility] 01-22-2023 Note HNO ID: [id number] Author: Beverly Franco DPM Service: ? Author Type: Physician Type: Progress Notes Filed: 01/22/2023 11:17 AM Note Text: SERVICE DATE: January 22, 2023 PCP: Wojciech Treviño MD, DO Subjective Patient ID: Jesus is a 67 year old female. Patient presents for follow-up of ulcerations right foot and associated infection at last visit s/p completing course of dicloxacillin, and utilizing offloading wound healing shoe. Chief Complaint: Patient presents with: Callous: Preulcerative calluses right 1 plantar and 2+3 PAIN EVALUATION 01/15/2023 0948 Pain Level: 3 Pain Location: Foot-Right Description: Dull Duration Units: Minutes Frequency: Intermittent HPI patient is anticoagulated with Eliquis Review of Systems ACTIVE PROBLEM LIST Edema Proteinuria Essential Hypertension Atrial Fibrillation (Hcc) Membranous Glomerulonephritis Vitamin D Deficiency Sle (Systemic Lupus Erythematosus) ([facility]) Fibromyalgia Sleep Apnea Encounter for Long-Term (Current) Use of Other High-Risk Medications Osteoarthritis of ankle and foot HALLUX VALGUS ACQUIRED Other Hammer Toe (Acquired) Enthesopathy of Ankle and Tarsus, Unspecified Lesion of Plantar Nerve Neuralgia, Neuritis, and Radiculitis, Unspecified Foot Pain, Left Other Synovitis and Tenosynovitis, Unspecified Ankle and Foot Osteoarthrosis of Ankle and Foot, Left Synovitis of Left Foot Synovitis of Right Foot Vocal Cord Edema Primary Osteoarthritis of Both Feet Synovitis of Foot Conjunctivitis Keratopathy Obesity, Class III, BMI >= 40 Hypothyroidism Chronic Congestive Heart Failure (Hcc) Status Post Right Hip Replacement S/P Total Hip Arthroplasty Mixed Hyperlipidemia Obesity, Class II, Bmi 35-39.9 Thoracic Ascending Aortic Aneurysm (Hcc) Hypercalcemia Hyperparathyroid (Hcc) PAST MEDICAL HISTORY Diagnosis Date Arrhythmia Atrial fibrillation (HCC) on coumadin Herniated intervertebral disk HTN (hypertension) Hyperlipemia Kidney disease MONI (obstructive sleep apnea) no longer using CPAP since 60 lb weight loss Other acute pancreatitis with uninfected necrosis SLE (systemic lupus erythematosus) ([facility]) Sleep apnea 07/29/2012 PAST SURGICAL HISTORY Procedure Laterality Date APPENDECTOMY CARPAL TUNNEL RIGHT WRIST surgical correction COLONOSCOPY 05/10/2019 [facility] COLONOSCOPY GEN ANES 07/23/2020 Dr. Reinoso/Diverticulosis/Hemorrhoids/ Ulcerative Colitis/Rpt in 2 yrs. EGD EUS 01/11/2020 [facility] LASIK Right prior to 1999 MRI PANC/JEANIE WO/W IVCON 12/20/2019 [facility] CYSTECTOM[facility] PAST SURGICAL HISTORY OF 07/2013 bilateral foot procedure, [place] PAST SURGICAL HISTORY OF Ablation X2 TONSILLECTOMY HX FAMILY HISTORY Problem Relation Age of Onset Alzheimer's Disease Father Hypertension Father Cataract Mother Hypertension Mother Colon Cancer Mother Cataract Sister Hypertension Sister Colon Cancer Paternal Uncle Social History Tobacco Use Smoking status: Never Smokeless tobacco: Never Vaping Use Vaping Use: Never used Substance Use Topics Alcohol use: Yes Comment: very rare Drug use: No Comment: denies tx for drug/alcohol abuse in the past. ALLERGIES Allergen Reactions Dofetilide Other: See Comments, Anaphylaxis V-tach Sulfa (Sulfonamide * Vomiting total body swelling and kidney shut down, body aches and rash Contrast Dye Other: See Comments (Deep seafood) hot flashes, sweating. Codeine Other: See Comments severe headaches Compazine [Prochlor* Other: See Comments loss control of left side of face Tetnus [Tetanus Vac* Other: See Comments red spot in area of shot MEDICATIONS: colestipol (COLESTID) 1 gram tabletTAKE 2 TABLETS BY MOUTH TWICE A DAYDisp: 120 tabletRfl: 3 ELIQUIS 5 mg tab(s)Take 5 mg by mouth twice daily.Disp: Rfl: cholestyramine-sucrose (QUESTRAN) 4 gram powderTake 4 g by mouth three times daily with meals.Disp: Rfl: vancomycin (VANCOCIN HCL) 125 mg capsuleTake 1 capsule by mouth four times daily for 14 days, THEN 1 capsule twice daily for 7 days, THEN 1 capsule once daily for 7 days, THEN 1 capsule every other day in the morning for 14 days.Disp: 84 capsuleRfl: 0 ferrous sulfate (IRON) 325 mg (65 mg iron) tabletTake 1 tablet by mouth once daily.Disp: 90 tabletRfl: [address] (PROTONIX) 40 mg tabletTake 1 tablet by mouth twice daily.Disp: 60 tabletRfl: 3 alendronate (FOSAMAX) 70 mg tabletTake 1 tablet by mouth one time a week. In the morning with a full glass of water, on an empty stomach. Do not take anything else by mouth or lie down for the next 30 minutes.Disp: 12 tabletRfl: 3 Mesalamine (LIALDA) 1.2 gram EC tabletTake 4 tablets by mouth once daily.Disp: 360 tabletRfl: 1 acetaminophen (TYLENOL) 500 mg tabletTake 1 tablet by mouth every 4 hours as needed for pain.Disp: Rfl: uzvwiqi-kgxlzrtaq-sfjbrrv D3 500 mg-5 mcg (200 unit) per tabl (more content not included)... [facility] 01-22-2023 History of Present illness Narrative Images from the original note were not included. SERVICE DATE: January 22, 2023 PCP: Wojciech Treviño MD, DO Subjective Patient ID: Jesus is a 67 year old female. Patient presents for follow-up of ulcerations right foot and associated infection at last visit s/p completing course of dicloxacillin, and utilizing offloading wound healing shoe. Chief Complaint: Patient presents with: Callous: Preulcerative calluses right 1 plantar and 2+3 PAIN EVALUATION 01/15/2023 0948 Pain Level: 3 Pain Location: Foot-Right Description: Dull Duration Units: Minutes Frequency: Intermittent HPI patient is anticoagulated with Eliquis Review of Systems ACTIVE PROBLEM LIST Edema Proteinuria Essential Hypertension Atrial Fibrillation (Hcc) Membranous Glomerulonephritis Vitamin D Deficiency Sle (Systemic Lupus Erythematosus) (Hcc) Fibromyalgia Sleep Apnea Encounter for Long-Term (Current) Use of Other High-Risk Medications Osteoarthritis of ankle and foot HALLUX VALGUS ACQUIRED Other Hammer Toe (Acquired) Enthesopathy of Ankle and Tarsus, Unspecified Lesion of Plantar Nerve Neuralgia, Neuritis, and Radiculitis, Unspecified Foot Pain, Left Other Synovitis and Tenosynovitis, Unspecified Ankle and Foot Osteoarthrosis of Ankle and Foot, Left Synovitis of Left Foot Synovitis of Right Foot Vocal Cord Edema Primary Osteoarthritis of Both Feet Synovitis of Foot Conjunctivitis Keratopathy Obesity, Class III, BMI >= 40 Hypothyroidism Chronic Congestive Heart Failure (Hcc) Status Post Right Hip Replacement S/P Total Hip Arthroplasty Mixed Hyperlipidemia Obesity, Class II, Bmi 35-39.9 Thoracic Ascending Aortic Aneurysm (Hcc) Hypercalcemia Hyperparathyroid (Hcc) PAST MEDICAL HISTORY Diagnosis Date Arrhythmia Atrial fibrillation (HCC) on coumadin Herniated intervertebral disk HTN (hypertension) Hyperlipemia Kidney disease MONI (obstructive sleep apnea) no longer using CPAP since 60 lb weight loss Other acute pancreatitis with uninfected necrosis SLE (systemic lupus erythematosus) ([facility]) Sleep apnea 07/29/2012 PAST SURGICAL HISTORY Procedure Laterality Date APPENDECTOMY CARPAL TUNNEL RIGHT WRIST surgical correction COLONOSCOPY 05/10/2019 [facility] COLONOSCOPY GEN ANES 07/23/2020 Dr. Reinoso/Diverticulosis/Hemorrhoids/ Ulcerative Colitis/Rpt in 2 yrs. EGD EUS 01/11/2020 [facility] LASIK Right prior to 1999 MRI PANC/JEANIE WO/W IVCON 12/20/2019 [facility]VARIAN CYSTECTOMY PAST SURGICAL HISTORY OF 07/2013 bilateral foot procedure, [place] PAST SURGICAL HISTORY OF Ablation X2 TONSILLECTOMY HX FAMILY HISTORY Problem Relation Age of Onset Alzheimer's Disease Father Hypertension Father Cataract Mother Hypertension Mother Colon Cancer Mother Cataract Sister Hypertension Sister Colon Cancer Paternal Uncle Social History Tobacco Use Smoking status: Never Smokeless tobacco: Never Vaping Use Vaping Use: Never used Substance Use Topics Alcohol use: Yes Comment: very rare Drug use: No Comment: denies tx for drug/alcohol abuse in the past. ALLERGIES Allergen Reactions Dofetilide Other: See Comments, Anaphylaxis V-tach Sulfa (Sulfonamide * Vomiting total body swelling and kidney shut down, body aches and rash Contrast Dye Other: See Comments (Deep seafood) hot flashes, sweating. Codeine Other: See Comments severe headaches Compazine [Prochlor* Other: See Comments loss control of left side of face Tetnus [Tetanus Vac* Other: See Comments red spot in area of shot MEDICATIONS: colestipol (COLESTID) 1 gram tablet^TAKE 2 TABLETS BY MOUTH TWICE A DAY^Disp: 120 tablet^Rfl: 3 ELIQUIS 5 mg tab(s)^Take 5 mg by mouth twice daily.^Disp: ^Rfl: cholestyramine-sucrose (QUESTRAN) 4 gram powder^Take 4 g by mouth three times daily with meals.^Disp: ^Rfl: vancomycin (VANCOCIN HCL) 125 mg capsule^Take 1 capsule by mouth four times daily for 14 days, THEN 1 capsule twice daily for 7 days, THEN 1 capsule once daily for 7 days, THEN 1 capsule every other day in the morning for 14 days.^Disp: 84 capsule^Rfl: 0 ferrous sulfate (IRON) 325 mg (65 mg iron) tablet^Take 1 tablet by mouth once daily.^Disp: 90 tablet^Rfl: [address] (PROTONIX) 40 mg tablet^Take 1 tablet by mouth twice daily.^Disp: 60 tablet^Rfl: 3 alendronate (FOSAMAX) 70 mg tablet^Take 1 tablet by mouth one time a week. In the morning with a full glass of water, on an empty stomach. Do not take anything else by mouth or lie down for the next 30 minutes.^Disp: 12 tablet^Rfl: 3 Mesalamine (LIALDA) 1.2 gram EC tablet^Take 4 tablets by mouth once daily.^Disp: 360 tablet^Rfl: 1 acetaminophen (TYLENOL) 500 mg tablet^Take 1 tablet by mouth every 4 hours as needed for pain.^Disp: ^Rfl: shvwref-hblcfbswm-bpqtlow D3 500 mg-5 mcg (200 unit) per tablet^Take 1 tablet by mouth three times daily.^Disp: ^Rfl: MV with Lco-Jbkiaexg-Qljicl (CENTRUM SILVER) 0.4 mg-300 mcg- 250 mcg tab^Take 1 tablet by mouth once daily.^Disp: ^Rfl: mycophenolate Mofetil (CELLCEPT) 500 mg tablet^take 1 tablet by mouth daily^Disp: 30 tablet^Rfl: 11 celecoxib (CELEBREX) 200 mg capsule^Take 200 mg by mouth twice daily.^Disp: ^Rfl: hydrOXYchloroQUINE (PLAQUENIL) 200 mg tablet^take 1 tablet by mouth twice a day with food^Disp: 180 tablet^Rfl: 2 metoprolol succinate ER (TOPROL XL) 50 mg 24 hr tablet^50mg in am and 100mg in pm.^Disp: 270 tablet^Rfl: 3 sucralfate (CARAFATE) 100 mg/mL suspension^Take 10 mL by mouth four times daily.^Disp: 420 mL^Rfl: 1 atorvastatin (LIPITOR) 40 mg tablet^Take 1 tablet by mouth once daily.^Disp: 90 tablet^Rfl: 3 Bifidobacterium infantis (ALIGN ORAL)^Take by mouth once daily. ^Disp: ^Rfl: belimumab (BENLYSTA INTRAVENOUS)^Inject intravenously. Patient reports she receives infusion every 3 months^Disp: ^Rfl: venlafaxine ER (EFFEXOR XR) 150 mg 24 hr capsule^Take 1 capsule by mouth once daily.^Disp: 90 capsule^Rfl: 3 levothyroxine (SYNTHROID) 75 mcg tablet^Take 75 mcg by mouth once daily.^Disp: ^Rfl: furosemide (LASIX) 40 mg tablet^Take 40 mg by mouth once daily. ^Disp: ^Rfl: busPIRone (BUSPAR) 10 mg tablet^Take 10 mg by mouth daily at bedtime. ^Disp: ^Rfl: spironolactone (ALDACTONE) 50 mg tablet^Take 50 mg by mouth once daily.^Disp: ^Rfl: Cholecalciferol, Vitamin D3, 2,000 unit cap^Take by mouth once daily.^Disp: ^Rfl: vitamin b complex(B COMPLEX TAB)^one daily^Disp: ^Rfl: 0 multivitamins w-minerals/lut(CENTRUM SILVER TAB)^Take one(1) tablet daily.^Disp: ^Rfl: 0 Allergies, medications, past surgical history, family history and past medical history were reviewed per this encounter. Objective PHYSICAL EXAM NVS: Pedal pulses are patent, CFT less than 3 seconds; bilateral Dressing: Dry, clean, intact right Clinical findings: Absence of acute local edema, erythema, rubor: Right foot and toes Clinical correction; keratotic tissue with ecchymotic discoloration at tip of right second and third toe from DIPJ distally, there is an intact callus with no michael breakdown underlying the right first MTPJ with small ecchymotic discoloration in the center X-ray: No updated imaging obtained today ASSESSMENT Diagnosis (L97.511) Ulcer of toe of right foot, limited to breakdown of skin (HCC) (primary encounter diagnosis) (L84) Pre-ulcerative calluses No orders found for this visit on 01/22/23. PLAN OV, discussed current status, progress, prognosis. In order to perform a complete physical exam, limited shaving of digital keratotic area was performed. This incidental service is integral to the evaluation and management visit in order to appropriately manage and treat the patient (for their complaint or for this visit). Redressed with replace, new offloading insole to [employer] shoe. Patient may resume bathing with soap and water. FOLLOW-UP: Return in about 3 weeks (around 02/12/2023). SIGNATURE: Beverly Franco DPM PATIENT NAME: Jesus Wolf DATE: January 22, 2023 TIME: 10:40 AM Beverly Franco DPM documented in this encounter [facility] 01-13-2023 Miscellaneous Notes Pharmacy escripts requesting the following refill: Requested Prescriptions Pending Prescriptions Disp Refills colestipol (COLESTID) 1 gram tablet [Pharmacy Med Name: COLESTIPOL HCL 1 GM TABLET] 120 tablet 3 Sig: TAKE 2 TABLETS BY MOUTH TWICE A DAY Please review and advise. Bang Spears RN documented in this encounter [facility] 01-08-2023 Note HNO ID: [id number] Author: Selin [place] Service: ? Author Type: ? Type: Progress Notes Filed: 01/08/2023 3:00 PM Note Text: Dressing applied to right foot as directed by Dr. Franco. Modified wound healing shoe application and removal directions provided. Patient verbalized understanding of instruxtions. Selin [place] LPN [facility] 01-08-2023 Note HNO ID: [id number] Author: Beverly Franco DPM Service: ? Author Type: Physician Type: Progress Notes Filed: 01/08/2023 2:18 PM Note Text: SERVICE DATE: January 08, 2023 PCP: Wojciech Treviño MD, DO Subjective Patient ID: Jesus is a 67 year old female. Patient presents today and states that she has sores on the bottom of her right second and third toes that have also become red and swollen. Patient indicates that although she normally sees Dr. Cervantes, when she called to make an appointment she was told by the attendant that he does not treat infections, only ingrown nails; she states that she knows better because he has been her doctor for a long time. Chief Complaint: Patient presents with: Callous: Right 1,2,3 PAIN EVALUATION 01/07/2023 1707 Pain Level: 3 Pain Location: Foot-Right Description: Sore Duration Units: Minutes Frequency: Intermittent HPI The second toe site began about a week ago, the third toe site began about 2 weeks ago. Patient is anticoagulated with Eliquis. No treatment has been attempted. Denies fever, chills. TREATMENTS PRIOR TO INITIAL CONSULT: None Review of Systems ACTIVE PROBLEM LIST Edema Proteinuria Essential Hypertension Atrial Fibrillation (Hcc) Membranous Glomerulonephritis Vitamin D Deficiency Sle (Systemic Lupus Erythematosus) (Hcc) Fibromyalgia Sleep Apnea Encounter for Long-Term (Current) Use of Other High-Risk Medications Osteoarthritis of ankle and foot HALLUX VALGUS ACQUIRED Other Hammer Toe (Acquired) Enthesopathy of Ankle and Tarsus, Unspecified Lesion of Plantar Nerve Neuralgia, Neuritis, and Radiculitis, Unspecified Foot Pain, Left Other Synovitis and Tenosynovitis, Unspecified Ankle and Foot Osteoarthrosis of Ankle and Foot, Left Synovitis of Left Foot Synovitis of Right Foot Vocal Cord Edema Primary Osteoarthritis of Both Feet Synovitis of Foot Conjunctivitis Keratopathy Obesity, Class III, BMI >= 40 Hypothyroidism Chronic Congestive Heart Failure (Hcc) Status Post Right Hip Replacement S/P Total Hip Arthroplasty Mixed Hyperlipidemia Obesity, Class II, Bmi 35-39.9 Thoracic Ascending Aortic Aneurysm (Hcc) Hypercalcemia Hyperparathyroid (Hcc) PAST MEDICAL HISTORY Diagnosis Date Arrhythmia Atrial fibrillation (HCC) on coumadin Herniated intervertebral disk HTN (hypertension) Hyperlipemia Kidney disease MONI (obstructive sleep apnea) no longer using CPAP since 60 lb weight loss Other acute pancreatitis with uninfected necrosis SLE (systemic lupus erythematosus) (HCC) Sleep apnea 07/29/2012 PAST SURGICAL HISTORY Procedure Laterality Date APPENDECTOMY CARPAL TUNNEL RIGHT WRIST surgical correction COLONOSCOPY 05/10/2019 [facility] COLONOSCOPY GEN ANES 07/23/2020 Dr. Reinoso/Diverticulosis/Hemorrhoids/ Ulcerative Colitis/Rpt in 2 yrs. EGD EUS 01/11/2020 [facility] LASIK Right prior to 1999 MRI PANC/JEANIE WO/W IVCON 12/20/2019 [facility]VAR[facility] CYSTECTOMY PAST SURGICAL HISTORY OF 07/2013 bilateral foot procedure, [place] PAST SURGICAL HISTORY OF Ablation X2 TONSILLECTOMY HX FAMILY HISTORY Problem Relation Age of Onset Alzheimer's Disease Father Hypertension Father Cataract Mother Hypertension Mother Colon Cancer Mother Cataract Sister Hypertension Sister Colon Cancer Paternal Uncle Social History Tobacco Use Smoking status: Never Smokeless tobacco: Never Vaping Use Vaping Use: Never used Substance Use Topics Alcohol use: Yes Comment: very rare Drug use: No Comment: denies tx for drug/alcohol abuse in the past. ALLERGIES Allergen Reactions Dofetilide Other: See Comments, Anaphylaxis V-tach Sulfa (Sulfonamide * Vomiting total body swelling and kidney shut down, body aches and rash Contrast Dye Other: See Comments (Deep seafood) hot flashes, sweating. Codeine Other: See Comments severe headaches Compazine [Prochlor* Other: See Comments loss control of left side of face Tetnus [Tetanus Vac* Other: See Comments red spot in area of shot MEDICATIONS: dicloxacillin (DYNAPEN) 500 mg capsuleTake 1 capsule by mouth four times daily.Disp: 28 capsuleRfl: 0 vancomycin (VANCOCIN HCL) 125 mg capsuleTake 1 capsule by mouth four times daily for 14 days, THEN 1 capsule twice daily for 7 days, THEN 1 capsule once daily for 7 days, THEN 1 capsule every other day in the morning for 14 days.Disp: 84 capsuleRfl: 0 ferrous sulfate (IRON) 325 mg (65 mg iron) tabletTake 1 tablet by mouth once daily.Disp: 90 tabletRfl: [address] (PROTONIX) 40 mg tabletTake 1 tablet by mouth twice daily.Disp: 60 tabletRfl: 3 colestipol (COLESTID) 1 gram tabletTake 2 tablets by mouth twice daily.Disp: 120 tabletRfl: 3 alendronate (FOSAMAX) 70 mg tabletTake 1 tablet by mouth one time a week. In the morning with a full glass of water, on an empty stomach. Do not take anything else by mouth or (more content not included)... [facility] 12-19-2022 Miscellaneous Notes Images from the original note were not included. Dione Reinoso MD You 53 minutes ago (2:29 PM) Lets do stool studies Dr. Reinoso, please review the orders and sign. Thank you, Bang Spears RN Pt is taking Colestipol BID. Pt on wait list for sooner apt. Please advise if any. Thank you, Bang Spears RN documented in this encounter [facility] 12-15-2022 Note HNO ID: [id number] Author: Coco Guzman RN Service: ? Author Type: Registered Nurse Type: Progress Notes Filed: 12/15/2022 1:18 PM Note Text: Since your last infusion, have you: Had any major change in your health (including new diagnosis of cancer, COPD or cogestive heart failure? No Been hospitalized? No Had any infections? No Taking antibiotics/antivirals/antifungals for current infection? No Had surgery or do you have upcoming surgery? No Received any live vaccines in the last four weeks? No Worsening GI symptoms/abnormal pain/bloating No In the past 7 days have you had: Fevers/chills/night sweats? No New cough or cold symptoms or sore throat? No Nausea/vomiting/diarrhea? No Unusual swelling of your ankles of feet? No Burning/blood with urination or urinary frequency? No New weakness/numbness/stumbling falls? No New rash or open sores? No [facility] 12-15-2022 History of Present illness Narrative Since your last infusion, have you: Had any major change in your health (including new diagnosis of cancer, COPD or cogestive heart failure? No Been hospitalized? No Had any infections? No Taking antibiotics/antivirals/antifungals for current infection? No Had surgery or do you have upcoming surgery? No Received any live vaccines in the last four weeks? No Worsening GI symptoms/abnormal pain/bloating No In the past 7 days have you had: Fevers/chills/night sweats? No New cough or cold symptoms or sore throat? No Nausea/vomiting/diarrhea? No Unusual swelling of your ankles of feet? No Burning/blood with urination or urinary frequency? No New weakness/numbness/stumbling falls? No New rash or open sores? No documented in this encounter [facility] 12-12-2022 Miscellaneous Notes Patient returning call regarding the below message left. Advised of the below and Patient states she is confirming her appointment for 12/15/22 and she has no infections. Patient understood and no further questions. Call placed to patient with no answer. LMOM to call back and confirm or to log in to my chart. documented in this encounter [facility] 11-25-2022 Miscellaneous Notes Pharmacy escripts requesting the following refill: Requested Prescriptions Pending Prescriptions Disp Refills ferrous sulfate (IRON) 325 mg (65 mg iron) tablet 90 tablet 3 Sig: Take 1 tablet by mouth once daily. Please review and advise. Bang Spears RN documented in this encounter [facility] 10-29-2022 Miscellaneous Notes Pharmacy escripts requesting the following refill: Requested Prescriptions Pending Prescriptions Disp Refills pantoprazole DR (PROTONIX) 40 mg tablet 60 tablet 3 Sig: Take 1 tablet by mouth twice daily. Please review and advise. Bang Spears RN documented in this encounter [facility] 10-29-2022 Miscellaneous Notes Images from the original note were not included. Dione Reinoso MD You 1 hour ago (9:32 AM) Lets restart vanco with a long taper, she needs to keep us updated on how it is going Dr. Reinoso, please review the orders and sign. Thank you, Bang Spears RN Dr. Reinoso, please review updated [employer] message. If you agree with retesting, please sign order. Thank you, Bang Spears RN Patient calling to follow up to message documented in this encounter [facility] 10-24-2022 Miscellaneous Notes Spoke to patient and she is scheduled for bilataral injections at [facility] for this 10/27/22 under local. Per patient, she does not need a post-op visit. documented in this encounter [facility] 10-22-2022 Miscellaneous Notes [facility] is also out of Colestipol. Pt called and found [facility] in [place]. Dr. Reinoso, please review the order and sign. Thank you, .me Patient calling again Please call into [facility] [place] Patient calling to follow up to message documented in this encounter [facility] 10-21-2022 Miscellaneous Notes Spoke to patient and let her know that I will call her to schedule the procedure Dr. Cervantes offered as soon as I receive the surgery information from him. In the meantime, I provided my direct number in surgery scheduling so she and I can keep in touch [phone]. documented in this encounter [facility] 10-17-2022 Miscellaneous Notes Pt states [facility] in [place] has colestipol Dr. Reinoso, please review the order and sign. Thank you, Bang Spears, RN Images from the original note were not included. Dione Reinoso MD You 3 hours ago (11:20 AM) Is there another pharmacy she can go to? I dont think she did as well with cholestyramine Dr. Reinoso, please review the pt message and advise. If you are ok with cholestyramine, please sign order. Thank you, Bang Spears RN documented in this encounter [facility] 10-16-2022 Note HNO ID: [id number] Author: Julia Ann PA-C Service: ? Author Type: Physician Wire Communications Engineer Type: Progress Notes Filed: 10/16/2022 9:58 AM Note Text: Osteoporosis and Metabolic Bone Disease Date of Service: 10/16/2022 Patient: Jesus Wolf Medical Record: [id number] Primary Care Physician: Wojciech Treviño MD, DO Last Rheumatology visit: 05/12/2022 (with Julia Ann) History of Present Illness Jesus Wolf is a 67 year old White female who presents on 10/16/2022 for a virtual visit for evaluation of Osteopenia. INTERVAL HISTORY Patient had a parathyroidectomy on 08/27/2022. Recovered well. Taking 500 mg of calcium daily. Taking vitamin D. Has been taking Fosamax since 04/2022 as instructed. Tolerating well with no concerns. Discussed 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, risk of ONJ and atypical femur fractures with prolonged use, GI upset with oral formulations. No fall or fractures. No planned dental procedures. Completed balance training in 2021 - believes it helped. Disease History Previous Visit History: Osteoporosis History No history of fractures Most Recent BMD Date: 03/13/22 LS: 1.28 g/cm2 Hip - Left: 0.74 g/cm2 Radius: 0.735 g/cm2 LS T-Score: 0.7 increase L Hip T-Score: -2.1 decrease Radius T-Score: -1.6 no previous value Date of FRAX (WHO 10-year fracture risk assessment tool): 05/12/22 FRAX 10-year fracture risk: hip: 1.6% FRAX 10-year fracture risk: major osteoporotic: 10% Daily Calcium diet: 1021 mg Daily Calcium supplementation: 500 mg Daily Vitamin D: 2000 IU Current Multivitamin: No Dental: No planned dental procedures. Last appointment: 12/2021 Link to FRAX Website RAPID 3 [place] Activities of Daily Living No Data Dress self? - Get in and out of bed? - Walk outdoors? - Wash and dry body? - Get in and out of car? - Tobacco Use Never smoked or used smokeless tobacco. Vaping Use Never used Alcohol Use Yes. Comments: very rare TREATMENT HISTORY Osteoporosis - Antiresorptive Treatments Treatment Start Date Stop Date Stop Reason Comment Fosamax 02/2010 Boniva 04/2010 Fosamax 10/2017 Fosamax 04/2022 Last Ophthalmology Check for Plaquenil (Hydroxychloroquine) Last OCT Macula Exam No resulted procedures found. Last Visual Field Exam No resulted procedures found. History of Radiation: No RISK FACTORS Osteoporosis FRAX Risk Factors No Fractures No family history of osteoporosis No parent with a hip fracture Not a current smoker Glucocorticoid use (Comment: Daily steroid uses from about 3680-6147) Previous use No rheumatoid arthritis Secondary osteoporosis Malabsorption No alcohol use more than 3 units per day Osteoporosis Medication Risk Factors Furosemide Proton pump inhibitor Osteoporosis Disease-Specific Risk Factors Weight is not less than 127 lbs Height loss 1 inch normal balance Fall history No history of eating disorders Hyperparathyroidism No history of renal calculi Caffeine intake: (Comment: Soda occasionally) Exercise routine: no regular exercise program BONE DENSITY RESULTS Last Bone Density DXA-AXIAL SKELETON Exam End: 03/13/2022 3:21 PM (Final result) Narrative: * * *Final Report* * * DATE OF EXAM: Mar 13 2022 3:21PM MilindB [id number] - DXA - AXIAL SKELETON -NB / PROCEDURE REASON: Asymptomatic postmenopausal status * * * * Physician Interpretation * * * * EXAMINATION: DXA BONE DENSITOMETRY BD DXA - AXIAL SKELETON -NB CLINICAL HISTORY: DIAGNOSTIC Asymptomatic postmenopausal status . DXA Model: A50 [employer] (S/N: [id number]) SITE SCANNED: Lumbar Spine, Left Hip, AND Left forearm Date Scanned: 03/13/2022 3:21 PM RESULT: Lumbar spine (L1-L3): 1.248 g/cm2, T-score 0.7, Z-score 2.3 Lumbar spine: 09/02/2017: 1.171 g/cm2 Lumbar spine change: +0.077 g/cm2, +6.6 %, significant increase Left Femoral Neck: 0.740 g/cm2, T-score -2.1, Z-score -0.6 Left Femoral Neck: 09/02/2017: 0.818 g/cm2 Left Femoral Neck Change: -0.078 g/cm2, -9.5 %, significant decrease Left Total Hip: 0.888 g/cm2, T-score -0.9, Z-score 0.3 Left Total Hip: 09/02/2017: 0.888 g/cm2 Left Total Hip change: -0.052 g/cm2, -5.5 %, significant decrease Left Forearm, Distal 1/3 of Radius: 0.735 g/cm2, T-score -1.6, Z-score -0.2 Impression: IMPRESSION: THE LOWEST T-SCORE IS -2.1 IN THE LEFT HIP DIAGNOSIS: Osteopenia Spine: Increased bone mass in spine (likely related to increasing degenerative changes) Hip: Decreased bone mass in hip. FRACTURE RISK: Increased 10-year absolute fracture risk: - major osteoporotic fracture = 16.3 % - hip fracture = 3.0 % RISK FACTORS: This patient is a 67 years Female. MENSTRUAL STATUS: She reports menstrual status of post-menopausal The patient reports the following risk factors associated with low bone mass or increased fracture risk: - past but not current steroid t (more content not included)... [facility] 10-16-2022 History of Present illness Narrative Images from the original note were not included. Osteoporosis and Metabolic Bone Disease Date of Service: 10/16/2022 Patient: Jesus Wolf Medical Record: [id number] Primary Care Physician: Wojciech Treviño MD, DO Last Rheumatology visit: 05/12/2022 (with Julia Ann) History of Present Illness Jesus Wolf is a 67 year old White female who presents on 10/16/2022 for a virtual visit for evaluation of Osteopenia. INTERVAL HISTORY Patient had a parathyroidectomy on 08/27/2022. Recovered well. Taking 500 mg of calcium daily. Taking vitamin D. Has been taking Fosamax since 04/2022 as instructed. Tolerating well with no concerns. Discussed 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, risk of ONJ and atypical femur fractures with prolonged use, GI upset with oral formulations. No fall or fractures. No planned dental procedures. Completed balance training in 2021 - believes it helped. Disease History Previous Visit History: Osteoporosis History No history of fractures Most Recent BMD Date: 03/13/22 LS: 1.28 g/cm2 Hip - Left: 0.74 g/cm2 Radius: 0.735 g/cm2 LS T-Score: 0.7 increase L Hip T-Score: -2.1 decrease Radius T-Score: -1.6 no previous value Date of FRAX (WHO 10-year fracture risk assessment tool): 05/12/22 FRAX 10-year fracture risk: hip: 1.6% FRAX 10-year fracture risk: major osteoporotic: 10% Daily Calcium diet: 1021 mg Daily Calcium supplementation: 500 mg Daily Vitamin D: 2000 IU Current Multivitamin: No Dental: No planned dental procedures. Last appointment: 12/2021 Link to FRAX Website RAPID 3 [place] Activities of Daily Living No Data Dress self? - Get in and out of bed? - Walk outdoors? - Wash and dry body? - Get in and out of car? - Tobacco Use Never smoked or used smokeless tobacco. Vaping Use Never used Alcohol Use Yes. Comments: very rare TREATMENT HISTORY Osteoporosis - Antiresorptive Treatments Treatment Start Date Stop Date Stop Reason Comment Fosamax 02/2010 Boniva 04/2010 Fosamax 10/2017 Fosamax 04/2022 Last Ophthalmology Check for Plaquenil (Hydroxychloroquine) Last OCT Macula Exam No resulted procedures found. Last Visual Field Exam No resulted procedures found. History of Radiation: No RISK FACTORS Osteoporosis FRAX Risk Factors No Fractures No family history of osteoporosis No parent with a hip fracture Not a current smoker Glucocorticoid use (Comment: Daily steroid uses from about [id number]) Previous use No rheumatoid arthritis Secondary osteoporosis Malabsorption No alcohol use more than 3 units per day Osteoporosis Medication Risk Factors Furosemide Proton pump inhibitor Osteoporosis Disease-Specific Risk Factors Weight is not less than 127 lbs Height loss 1 inch normal balance Fall history No history of eating disorders Hyperparathyroidism No history of renal calculi Caffeine intake: (Comment: Soda occasionally) Exercise routine: no regular exercise program BONE DENSITY RESULTS Last Bone Density DXA-AXIAL SKELETON Exam End: 03/13/2022 3:21 PM (Final result) Narrative: * * *Final Report* * * DATE OF EXAM: Mar 13 2022 3:21PM [id number] [id number] - BD DXA - AXIAL SKELETON -NB / PROCEDURE REASON: Asymptomatic postmenopausal status * * * * Physician Interpretation * * * * EXAMINATION: DXA BONE DENSITOMETRY BD DXA - AXIAL SKELETON -NB CLINICAL HISTORY: DIAGNOSTIC Asymptomatic postmenopausal status . DXA Model: A50 [employer] (S/N: [id number]) SITE SCANNED: Lumbar Spine, Left Hip, & Left forearm Date Scanned: 03/13/2022 3:21 PM RESULT: Lumbar spine (L1-L3): 1.248 g/cm2, T-score 0.7, Z-score 2.3 Lumbar spine: 09/02/2017: 1.171 g/cm2 Lumbar spine change: +0.077 g/cm2, +6.6 %, significant increase Left Femoral Neck: 0.740 g/cm2, T-score -2.1, Z-score -0.6 Left Femoral Neck: 09/02/2017: 0.818 g/cm2 Left Femoral Neck Change: -0.078 g/cm2, -9.5 %, significant decrease Left Total Hip: 0.888 g/cm2, T-score -0.9, Z-score 0.3 Left Total Hip: 09/02/2017: 0.888 g/cm2 Left Total Hip change: -0.052 g/cm2, -5.5 %, significant decrease Left Forearm, Distal 1/3 of Radius: 0.735 g/cm2, T-score -1.6, Z-score -0.2 Impression: IMPRESSION: THE LOWEST T-SCORE IS -2.1 IN THE LEFT HIP DIAGNOSIS: Osteopenia Spine: Increased bone mass in spine (likely related to increasing degenerative changes) Hip: Decreased bone mass in hip. FRACTURE RISK: Increased 10-year absolute fracture risk: - major osteoporotic fracture = 16.3 % - hip fracture = 3.0 % RISK FACTORS: This patient is a 67 years Female. MENSTRUAL STATUS: She reports menstrual status of post-menopausal The patient reports the following risk factors associated with low bone mass or increased fracture risk: - past but not current steroid therapy -Lupus The patient reports the following: - calcium intake - vitamin D intake RECOMMENDATIONS: NATIONAL OSTEOPOROSIS FOUNDATION GUIDELINES: Postmenopausal women and men age 50 and older presenting with the following should be treated: -Low bone mass (T-score between -1.0 and -2.5 at the femoral neck or spine) and 10 year probability of hip fracture >3% or a 10 year probability of any major osteoporosis-related fracture > 20% based on the [place] adapted WHO algorithm Based on the patient age, bone density and risk factors: - the patient has had a significant decline in bone mass and careful follow up is recommended. Secondary causes for bone loss should be considered with appropriate lab testing - pending workup, treatment would be indicated, but clinical correlation is required. - Based on FRAX, ten-year fracture risk, treatment is currently recommended. - treatment with an antiresorptive agent should be considered. - the patient should take calcium, the recommended dose is 7286-1397 mg per day along with 800-1000 IU vitamin D (some patients may require higher doses of vitamin D). LIMITATIONS: - Degenerative changes in the spine may artificially increase bone mass and make the reading unreliable FOLLOW-UP: - 2-years cc. Dr. Hardin Rn Documentation: findin Transcribe Date/Time: Mar 13 2022 3:34P Dictated by : NEMESIO REID MD This examination was interpreted and the report reviewed and electronically signed by: NEMESIO REID MD on Mar 16 2022 2:14PM EST BONE DENSITY RESULTS: EXTERNAL WOMEN / ESTROGEN Age of Menarche: 11 years Menstrual history: 12 menses/yr Menopause status: post-menopausal Type of Menopause: natural Age of Menopause: 56 years Previous estrogen use: none Hysterectomy: No Ovaries: intact Breast cancer: No Family history of breast cancer: No OB History No obstetric history on file. RELEVANT PREVIOUS INVESTIGATIONS Calcium Latest Ref Rng & Units 06/30/2022 07/31/2022 08/28/2022 09/09/2022 CA24HR 100.0 - 300.0 mg/24 hr - - - - CA 8.5 - 10.2 mg/dL 10.8(H) 10.9(H) 10.2 9.2 Alkaline Phosphatase Latest Ref Rng & Units 12/09/2021 03/13/2022 06/12/2022 06/30/2022 ALKPHOS 34 - 123 U/L 120 112 134(H) 119 ALKALINE PHOSPHATASE 34 - 123 U/L 120 112 134(H) 119 TSH Latest Ref Rng & Units 07/14/2012 09/11/2020 05/16/2021 TSH 0.270 - 4.200 uU/mL 2.760 5.850(H) 0.328 Vitamin D Latest Ref Rng & Units 10/04/2020 05/16/2021 04/18/2022 07/31/2022 VITAMIN D 25 HYDROXY 31.0 - 80.0 ng/mL 74.9 62.7 58.2 44.3 VIT D1, 25 DIHYDROXY 19.9 - 79.3 pg/mL - - 35.6 - Creatinine Latest Ref Rng & Units 03/13/2022 04/22/2022 06/12/2022 06/30/2022 CREAT 0.58 - 0.96 mg/dL 1.01(H) - 1.27(H) 0.96 NTX 5.0 - 65.0 nM BCE/mM Creatinine - 109.6(H) - - Protein, Total Latest Ref Rng & Units 06/30/2022 07/31/2022 08/28/2022 09/09/2022 PTH 15 - 65 pg/mL - 99(H) 12(L) 29 TPROT 6.3 - 8.0 g/dL 6.1(L) - - - Albumin Latest Ref Rng & Units 12/09/2021 03/13/2022 06/12/2022 06/30/2022 ALB 3.9 - 4.9 g/dL 4.0 4.3 4.2 4.3 PTH Latest Ref Rng & Units 06/12/2022 07/31/2022 08/28/2022 09/09/2022 PTH, INTACT 15 - 65 pg/mL 89(H) 99(H) 12(L) 29 Immunoglobulins Latest Ref Rng & Units 02/21/2010 07/14/2012 05/11/2017 09/11/2020 ALPHA 1 GLOBULIN 0.18 - 0.31 gm/dL 0.25(H) 0.22 - - ALPHA 2 GLOBULIN 0.52 - 0.97 gm/dL 1.38(H) 0.77 - - BETA GLOBULIN 0.84 - 1.36 gm/dL 0.81 0.85 - - GAMMA GLOBULIN 0.70 - 1.44 gm/dL 0.69 0.65(L) - - IGA 70 - 400 mg/dL - - 81 63(L) INTERPRETATION (PROT ELECTRO) - No definitive M-protein is identified on protein electrophoresis. Hypoalbuminemia is present. Elevation of acute phase reactants is present. Electrophoretic pattern is consistent with acute or subacute inflammation or infection. No definitive M protein is identified on protein electrophoresis. - - Hepatitis Screen Latest Ref Rng & Units 02/21/2010 12/18/2015 06/25/2020 HEPBCOTOL Negative Negative Negative Negative HEPSABQ Negative Negative Negative Negative HEPCABEIA Negative Negative Negative - HBSAG Negative - - Negative HBSAGR Negative Negative Negative - TPMT amd G6PD Latest Ref Rng & Units 06/25/2020 TPMT ACTIVITY 24.0 - 44.0 U/mL 29.5 Patient-Entered Data PAIN EVALUATION 10/09/20222012 Pain Level: 5 Pain Location: Finger Description: Aching;Spasm Duration Units: Days Frequency: Continuous PROMIS Assessments PROMIS Assessments 05/08/2022 07/17/2022 10/09/2022 Physical Health Percentile 15 % 7 % 7 % Mental Health Percentile 26 % 9 % 34 % Pain Score 3 2 3 Pain Interference Percentile 12 % - 10 % Fatigue Percentile 8 % - 24 % Physical Function Percentile 7 % - 7 % RAPID 3 [place] Activities of Daily Living No Data Dress self? - Get in and out of bed? - Walk outdoors? - Wash and dry body? - Get in and out of car? - RAPID 3 Disease Activity Weighed Score Levels: 0 - 1: Near Remission 1.3 - 2.0: Low Severity 2.3 - 4.0: Moderate Severity 4.3 - 10.0: High Severity RAPID-3 Weighed Score 12/14/2018 08/24/2019 10/21/2019 RAPID 3 Weighed Score 4.9 4.9 4.7 PHQ-9 0 - 4: Minimal Depression 5 - 9: Mild Depression 10 - 14: Moderate Depression 15 - 19: Moderately Severe Depression 20 - 27: Severe Depression PHQ-9 12/14/2018 04/02/2020 11/13/2021 PHQ-2 Score 3 2 0 PHQ-9 Score 13 - - Review of Systems Review of Systems CONSTITUTION: Negative for: Fever and Recent weight change HEENT: Positive for: Dry mouth Negative for: Nosebleeds, Mouth sores and Trouble swallowing RESPIRATORY: Positive for: Shortness of breath Negative for: Cough and Pain with breathing GASTROINTESTINAL: Positive for: Diarrhea Negative for: Melena, Heartburn and Abdominal pain MUSCULOSKELETAL: Positive for: Arthralgias, Myalgias, Muscle weakness, Joint swelling and Morning Joint Stiffness NEUROLOGICAL: Negative for: Headaches, Numbness and Memory loss SKIN: Negative for: Rash, Skin changes, Hair loss and Nail changes EYES: Negative for: Eye pain, Eye redness, Eye dryness and visual disturbance CARDIOVASCULAR: Negative for: Chest pain and Leg swelling GENITOURINARY: Negative for: Dysuria and Hematuria HEMATOLOGIC/LYMPHATIC: Negative for: Swollen glands Jaw pain: No All other reviewed and negative other than HPI. Past Medical History PAST MEDICAL HISTORY Diagnosis Date Arrhythmia Atrial fibrillation (HCC) on coumadin Herniated intervertebral disk HTN (hypertension) Hyperlipemia Kidney disease MONI (obstructive sleep apnea) no longer using CPAP since 60 lb weight loss Other acute pancreatitis with uninfected necrosis SLE (systemic lupus erythematosus) (HCC) Sleep apnea 07/29/2012 Past Surgical History PAST SURGICAL HISTORY Procedure Laterality Date APPENDECTOMY CARPAL TUNNEL RIGHT WRIST surgical correction COLONOSCOPY 05/10/2019 [facility] COLONOSCOPY GEN ANES 07/23/2020 Dr. Reinoso/Diverticulosis/Hemorrhoids/ Ulcerative Colitis/Rpt in 2 yrs. EGD EUS 01/11/2020 [facility] LASIK Right prior to 1999 MRI PANC/JEANIE WO/W IVCON 12/20/2019 OVARIAN CYSTECTOMY PAST SURGICAL HISTORY OF 07/2013 bilateral foot procedure, Sherry PAST SURGICAL HISTORY OF 2018,2019 Ablation X2 TONSILLECTOMY HX Family History FAMILY HISTORY Problem Relation Age of Onset Alzheimer's Disease Father Hypertension Father Cataract Mother Hypertension Mother Colon Cancer Mother Cataract Sister Hypertension Sister Colon Cancer Paternal Uncle Social History Social History Tobacco Use Smoking status: Never Smokeless tobacco: Never Vaping Use Vaping Use: Never used Substance Use Topics Alcohol use: Yes Comment: very rare Drug use: No Comment: denies tx for drug/alcohol abuse in the past. Current Medications Present Osteoporosis Medications: Current Antiresorptive Medications Bone Resorption Inhibitors - Bisphosphonates Start End alendronate (FOSAMAX) 70 mg tablet 10/16/2022 10/16/2023 Sig - Route: Take 1 tablet by mouth one time a week. In the morning with a full glass of water, on an empty stomach. Do not take anything else by mouth or lie down for the next 30 minutes. - ORAL Current Calcium, Multivitamin, and Vitamin D Use on File Minerals and Electrolytes - Calcium Replacement/Vitamin D Combinations Start End jgcnesk-maqqvkkgf-ryphryh D3 500 mg-5 mcg (200 unit) per tablet 08/27/2022 Sig - Route: Take 1 tablet by mouth three times daily. - ORAL Class: OTC Vitamins - D Derivatives Start End Cholecalciferol, Vitamin D3, 2,000 unit cap Sig - Route: Take by mouth once daily. - ORAL Class: Historical Med Multivitamin and Mineral Combinations Start End MV with Afg-Txbpkjxw-Iprgxc (CENTRUM SILVER) 0.4 mg-300 mcg- 250 mcg tab Sig - Route: Take 1 tablet by mouth once daily. - ORAL Class: Historical Med Minerals and Electrolytes - Calcium Replacement/Vitamin D Combinations Start End qhatrdt-rekadbvol-sgbvmso D3 500 mg-5 mcg (200 unit) per tablet 08/27/2022 Sig - Route: Take 1 tablet by mouth three times daily. - ORAL Class: OTC Current Outpatient Medications Medication Sig alendronate (FOSAMAX) 70 mg tablet Take 1 tablet by mouth one time a week. In the morning with a full glass of water, on an empty stomach. Do not take anything else by mouth or lie down for the next 30 minutes. Mesalamine (LIALDA) 1.2 gram EC tablet Take 4 tablets by mouth once daily. colestipol (COLESTID) 1 gram tablet Take 2 tablets by mouth twice daily. acetaminophen (TYLENOL) 500 mg tablet Take 1 tablet by mouth every 4 hours as needed for pain. calcium carbonate (TUMS) 500 mg chew Take 1 tablet by mouth every hour as needed (mouth or hand numbness or tingling). ktcghvb-jrmwsrhpp-xvaggsz D3 500 mg-5 mcg (200 unit) per tablet Take 1 tablet by mouth three times daily. MV with Slh-Wonjznkx-Rzpbdq (CENTRUM SILVER) 0.4 mg-300 mcg- 250 mcg tab Take 1 tablet by mouth once daily. pantoprazole DR (PROTONIX) 40 mg tablet Take 1 tablet by mouth twice daily. mycophenolate Mofetil (CELLCEPT) 500 mg tablet take 1 tablet by mouth daily celecoxib (CELEBREX) 200 mg capsule Take 200 mg by mouth twice daily. hydrOXYchloroQUINE (PLAQUENIL) 200 mg tablet take 1 tablet by mouth twice a day with food metoprolol succinate ER (TOPROL XL) 50 mg 24 hr tablet 50mg in am and 100mg in pm. ferrous sulfate (IRON) 325 mg (65 mg iron) tablet Take 1 tablet by mouth once daily. cholestyramine-sucrose (QUESTRAN) 4 gram powder Take 4 g by mouth twice daily with meals. sucralfate (CARAFATE) 100 mg/mL suspension Take 10 mL by mouth four times daily. atorvastatin (LIPITOR) 40 mg tablet Take 1 tablet by mouth once daily. Bifidobacterium infantis (ALIGN ORAL) Take by mouth once daily. belimumab (BENLYSTA INTRAVENOUS) Inject intravenously. Patient reports she receives infusion every 3 months venlafaxine ER (EFFEXOR XR) 150 mg 24 hr capsule Take 1 capsule by mouth once daily. levothyroxine (SYNTHROID) 75 mcg tablet Take 75 mcg by mouth once daily. furosemide (LASIX) 40 mg tablet Take 40 mg by mouth once daily. busPIRone (BUSPAR) 10 mg tablet Take 10 mg by mouth daily at bedtime. spironolactone (ALDACTONE) 50 mg tablet Take 50 mg by mouth once daily. Cholecalciferol, Vitamin D3, 2,000 unit cap Take by mouth once daily. vitamin b complex(B COMPLEX TAB) one daily multivitamins w-minerals/lut(CENTRUM SILVER TAB) Take one(1) tablet daily. Current Facility-Administered Medications Medication Dose Route Frequency perflutren lipid microspheres 1.3 mL in NaCl (PF) 0.9% 10 mL injection (DEFINITY) INTRAVENOUS DIRECTED PRN sodium chloride 0.9 % (flush) 10 mL (BD POSIFLUSH) 10 mL INTRAVENOUS DIRECTED PRN Labs Calcium Latest Ref Rng & Units 06/30/2022 07/31/2022 08/28/2022 09/09/2022 CA24HR 100.0 - 300.0 mg/24 hr - - - - CA 8.5 - 10.2 mg/dL 10.8(H) 10.9(H) 10.2 9.2 Alkaline Phosphatase Latest Ref Rng & Units 12/09/2021 03/13/2022 06/12/2022 06/30/2022 ALKPHOS 34 - 123 U/L 120 112 134(H) 119 ALKALINE PHOSPHATASE 34 - 123 U/L 120 112 134(H) 119 TSH Latest Ref Rng & Units 07/14/2012 09/11/202005/16/2021 TSH 0.270 - 4.200 uU/mL 2.760 5.850(H) 0.328 Vitamin D Latest Ref Rng & Units 10/04/2020 05/16/2021 04/18/2022 07/31/2022 VITAMIN D 25 HYDROXY 31.0 - 80.0 ng/mL 74.9 62.7 58.2 44.3 VIT D1, 25 DIHYDROXY 19.9 - 79.3 pg/mL - - 35.6 - Creatinine Latest Ref Rng & Units 03/13/2022 04/22/2022 06/12/2022 06/30/2022 CREAT 0.58 - 0.96 mg/dL 1.01(H) - 1.27(H) 0.96 NTX 5.0 - 65.0 nM BCE/mM Creatinine - 109.6(H) - - Protein, Total Latest Ref Rng & Units 06/30/2022 07/31/2022 08/28/2022 09/09/2022 PTH 15 - 65 pg/mL - 99(H) 12(L) 29 TPROT 6.3 - 8.0 g/dL 6.1(L) - - - Albumin Latest Ref Rng & Units 12/09/2021 03/13/2022 06/12/2022 06/30/2022 ALB 3.9 - 4.9 g/dL 4.0 4.3 4.2 4.3 PTH Latest Ref Rng & Units 06/12/2022 07/31/2022 08/28/2022 09/09/2022 PTH, INTACT 15 - 65 pg/mL 89(H) 99(H) 12(L) 29 Immunoglobulins Latest Ref Rng & Units 02/21/2010 07/14/2012 05/11/2017 09/11/2020 ALPHA 1 GLOBULIN 0.18 - 0.31 gm/dL 0.25(H) 0.22 - - ALPHA 2 GLOBULIN 0.52 - 0.97 gm/dL 1.38(H) 0.77 - - BETA GLOBULIN 0.84 - 1.36 gm/dL 0.81 0.85 - - GAMMA GLOBULIN 0.70 - 1.44 gm/dL 0.69 0.65(L) - - IGA 70 - 400 mg/dL - - 81 63(L) INTERPRETATION (PROT ELECTRO) - No definitive M-protein is identified on protein electrophoresis. Hypoalbuminemia is present. Elevation of acute phase reactants is present. Electrophoretic pattern is consistent with acute or subacute inflammation or infection. No definitive M protein is identified on protein electrophoresis. - - Hepatitis Screen Latest Ref Rng & Units 02/21/2010 12/18/2015 06/25/2020 HEPBCOTOL Negative Negative Negative Negative HEPSABQ Negative Negative Negative Negative HEPCABEIA Negative Negative Negative - HBSAG Negative - - Negative HBSAGR Negative Negative Negative - TPMT amd G6PD Latest Ref Rng & Units 06/25/2020 TPMT ACTIVITY 24.0 - 44.0 U/mL 29.5 Physical Exam Virtual Visit: Patient appears well. A&Ox3 Impression & Plan The patient has: osteopenia No history of fractures Most Recent BMD Date: 03/13/22 LS: 1.28 g/cm2 Hip - Left: 0.74 g/cm2 Radius: 0.735 g/cm2 LS T-Score: 0.7 increase L Hip T-Score: -2.1 decrease Radius T-Score: -1.6 no previous value Jesus Wolf is a 67 year old female with history of SLE presenting for an osteopenia evaluation. She has previously been treated with Fosamax from 02/2010-04/2010 & 10/2017-10/2019 and Boniva from 04/2010-06/2012. Currently on Fosamax since 04/2022 Discussed 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, risk of ONJ and atypical femur fractures with prolonged use, GI upset with oral formulations. History of hyperparathyroidism. S/p parathyroidectomy in 08/2022. Completed balance physical therapy in 2021. Calcium intake is adequate. Vitamin D is adequate. 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 Recheck urine NTX after next appointment - if low may consider a drug holiday. Calcium 1200 to 1500 mg daily recommended- if cannot achieve this through diet, then supplement recommended in divided doses. Continue vitamin D. Weight bearing exercise as tolerated recommended. Fall precautions discussed. Continue fall prevention with physical therapy. Repeat bmd on same machine as prior around 02/2024. Continued f/u with PCP for routine health maintenance advised. Orders this visit: [facility] on 10/16/22 alendronate (FOSAMAX) 70 mg tablet Return in about 6 months (around 04/18/2023). I spent a total of 21 minutes on the date of the service which included preparing to see the patient, [id number] patient care, completing clinical documentation, obtaining and/or reviewing separately obtained history, performing a medically appropriate examination, and counseling and educating the patient/family/caregiver. ____ Julia Ann PA-C Date: October 16, 2022 documented in this encounter [facility] 10-01-2022 Miscellaneous Notes C Diff Toxin A/B - positive Pt dc on flagyl 500 mg TID x [address] Reinoso, per message below, please review the order and sign. Thank you, Bang Spears RN Images from the original note were not included. Dione Reinoso MD You Yesterday (2:12 PM) We should switch to chero Some testing in CareEverywhere. Release sent. Awaiting full records report. Bang Spears RN mg Bernstein. Thank you, Bang Spears RN documented in this encounter [facility] 09-24-2022 Miscellaneous Notes Spoke with patient. Patient will no longer follow with either Dr. Mcfadden or Dr. Martins. No explanation given. Will contact new provider office for refills. Patient requesting prescription refill. She needs some updated lab work also verify who patient is following with. She has seen Dr. Mcfadden however, most recently has seen Dr. Martins. Needs to schedule a follow-up visit. Last OV:10/2021 No future appt noted. Outside labs noted 09/10/2022: Contains abnormal data LIPID PANEL (EXTERNAL) Order: [id number] Component Ref Range & Units 12 d ago Cholesterol 150 - 200 mg/dL 115 Low Triglycerides 27 - 150 mg/dL 147 HDL Cholesterol >39 mg/dL 45 Comment: HDL <40 mg/dL - High Risk HDL > or = 40mg/dL- Desirable HDL >60 mg/dL - Negative Risk VLDL 0 - 30 mg/dL 29 LDL (calc) <130 mg/dL 41 Comment: LDL <100 mg/dL - Desirable LDL >160 mg/dL - High Risk Cholesterol:HDL Ratio 1.0 - 5.0 2.6 documented in this encounter [facility] 09-22-2022 Miscellaneous Notes Pharmacy escripts requesting the following refill: Requested Prescriptions Pending Prescriptions Disp Refills Mesalamine (LIALDA) 1.2 gram EC tablet 360 tablet 1 Sig: Take 4 tablets by mouth once daily. Please review and advise. Bang Spears RN documented in this encounter [facility] 09-15-2022 Note HNO ID: [id number] Author: Hallie Gastelum RN Service: ? Author Type: Registered Nurse Type: Progress Notes Filed: 09/15/2022 10:40 AM Note Text: Since your last infusion, have you: Had any major change in your health (including new diagnosis of cancer, COPD or cogestive heart failure? No Been hospitalized? No Had any infections? No Taking antibiotics/antivirals/antifungals for current infection? No Had surgery or do you have upcoming surgery? No Received any live vaccines in the last four weeks? No Worsening GI symptoms/abnormal pain/bloating No In the past 7 days have you had: Fevers/chills/night sweats? No New cough or cold symptoms or sore throat? No Nausea/vomiting/diarrhea? No Unusual swelling of your ankles of feet? No Burning/blood with urination or urinary frequency? No New weakness/numbness/stumbling falls? No New rash or open sores? No [facility] 09-15-2022 Miscellaneous Notes Images from the original note were not included. ENDOCRINE SURGERY POST OP FOLLOW UP Name: Jesus Wolf Date: September 15, 2022 PROCEDURE: parathyroidectomy Patient is doing well overall. Voice is strong and normal. Reviewed pathology hypercellular Reviewed labs Ca 9.2 PTH 27 Incision care reviewed Plan: Drop Oscal daily Repeat labs in six months SIGNATURE: Bryan Painting MD documented in this encounter [facility] 09-15-2022 History of Present illness Narrative Since your last infusion, have you: Had any major change in your health (including new diagnosis of cancer, COPD or cogestive heart failure? No Been hospitalized? No Had any infections? No Taking antibiotics/antivirals/antifungals for current infection? No Had surgery or do you have upcoming surgery? No Received any live vaccines in the last four weeks? No Worsening GI symptoms/abnormal pain/bloating No In the past 7 days have you had: Fevers/chills/night sweats? No New cough or cold symptoms or sore throat? No Nausea/vomiting/diarrhea? No Unusual swelling of your ankles of feet? No Burning/blood with urination or urinary frequency? No New weakness/numbness/stumbling falls? No New rash or open sores? No documented in this encounter [facility] 09-12-2022 Miscellaneous Notes I spoke to Jesus and she will be coming for her infusion on Thursday09-15-22. She states that she had parathyroid surgery since her last infusion. She had a follow up with her PCP, and her incision is healed. She was not on any antibiotics for this procedure. She denies having been sick or on any recent antibiotics. documented in this encounter [facility] 09-10-2022 Miscellaneous Notes Patient requesting the following refill: Requested Prescriptions Pending Prescriptions Disp Refills colestipol (COLESTID) 1 gram tablet 120 tablet 3 Sig: Take 2 tablets by mouth twice daily. Please review and advise. Bagn Spears RN Jesus Wolf is calling in for a refill on her prescription of Colestipol 1gm - 2 tablets BID and would like it to go to [facility] pharmacy. documented in this encounter [facility] 09-08-2022 Miscellaneous Notes Pt calling to see if Dr. Painting would be calling her today. I told pt that Dr. Painting would call her after she had labs drawn. Pt is to have labs done at the end of the week. Pt states that she was having symptoms of low calcium at the end of last week but has been doing ok since. She is going to continue to take calcium 3 times a day until she hears from Dr. Painting. Pt will call with any further questions or concerns. Sarai Menjivar RN documented in this encounter [facility] 08-28-2022 Note HNO ID: [id number] Author: Elio Hackett MD Service: General Surgery Author Type: Resident Type: Progress Notes Filed: 08/28/2022 7:45 AM Note Text: ENDOCRINE SURGERY PROGRESS NOTE NAME: Jesus Wolf August 28, 2022 7:45 AM 1 Day Post-Op AANDP: Jesus Wolf is a 67 year old female s/p parathyroidectomy. - Neuro: prn pain control, tylenol/ibuprofen - Cardiopulm: HDS, pulse-ox, monitor for difficulty breathing, cepacol/chloraseptic for sore throat - FEN/GI: Regular diet. - : Voiding - ID: [id number]: none indicated - Heme: monitor for signs of hematoma - Endo: monitor for tetany/tingling/signs of hypocalcemia, tid calcium carbonate/vitamin D and prn Tums for numbness - DVT ppx: SCDs only - Dispo: Stable for discharge today Discussed with Dr. Painting. S: No acute events since OR. No perioral numbness/tingling. No hoarseness/difficulty swallowing. No difficulty breathing/chest pain. On exam: BP 114/58 Pulse 63 Temp 36.7 ?C (98 ?F) (Oral) Resp 16 LMP 07/17/2011 (Within Years) SpO2 97% Gen: NAD CV: extremities warm and well perfused, pulse regular Pulm: no increased work of breathing on room air Neck incision clean/dry/intact, no ecchymosis/signs of swelling Current Facility-Administered Medications Medication Dose Route Frequency Provider Last Rate Last Admin acetaminophen 500 mg tab(s) (TYLENOL) 500 mg ORAL q 4 H PRN Vargas Reid MD 500 mg at 08/28/22 0520 benzocaine-menthol 1 Lozenge (CHLORASEPTIC) 1 Lozenge MUCOUS MEMBRANE (TOPICAL MOUTH AND THROAT) q 2 H PRN Vargas Reid MD 1 Lozenge at 08/27/22 2100 phenol 1 [place] (CHLORASEPTIC) 1 [place] MUCOUS MEMBRANE (TOPICAL MOUTH AND THROAT) q 2 H PRN Vargas Reid MD ondansetron (PF) 4 mg injection (ZOFRAN) 4 mg INTRAVENOUS q 6 H PRN Vargas Reid MD NaCl 0.9% iv flush bag 20 mL INTRAVENOUS PRN Vargas Reid MD oybnurg-ivshqmvto-ohyzpeo D3 500 mg-5 mcg (200 unit) 1 tablet 1 tablet ORAL TID Vargas Reid MD 1 tablet at 08/27/22 2100 calcium carbonate 500 mg chewable tab(s) (TUMS) 500 mg ORAL q 1 H PRN Vargas Reid MD NaCl 0.9% iv infusion 75 mL/hr INTRAVENOUS CONTINUOUS Vargas Reid MD Stopped at 08/27/22 1600 atorvastatin 40 mg tab(s) (LIPITOR) 40 mg ORAL DAILY Vargas Reid MD 40 mg at 08/27/22 1235 busPIRone 10 mg tab(s) (BUSPAR) 10 mg ORAL AT BEDTIME Vargas Reid MD 10 mg at 08/27/22 2100 celecoxib 200 mg cap(s) (CeleBREX) 200 mg ORAL BID Vargas Reid MD 200 mg at 08/27/22 2100 cholestyramine low-calorie 4 g packet (QUESTRAN) 4 g ORAL BID w MEALS Vargas Reid MD colestipol 2 g tab(s) (COLESTID) 2 g ORAL BID Vargas Reid MD 2 g at 08/27/22 2100 ferrous sulfate 325 mg tab(s) 325 mg ORAL DAILY Vargas Reid MD 325 mg at 08/27/22 2100 furosemide 40 mg tab(s) (LASIX) 40 mg ORAL DAILY Vargas Reid MD 40 mg at 08/27/22 1235 levothyroxine 75 mcg tab(s) (SYNTHROID) 75 mcg ORAL DAILY Vargas Reid MD metoprolol succinate ER 50 mg tab(s) (TOPROL XL) 50 mg ORAL DAILY (9 AM) Vargas Reid MD metoprolol succinate ER 100 mg tab(s) (TOPROL XL) 100 mg ORAL DAILY AT 9 PM Vargas Reid MD 100 mg at 08/27/[address] 40 mg tab(s) (PROTONIX) 40 mg ORAL BID Vargas Reid MD 40 mg at 08/27/222099 spironolactone 50 mg tab(s) (ALDACTONE) 50 mg ORAL DAILY Vargas Reid MD 50 mg at 08/27/22 1235 sucralfate 1 g tab(s) (CARAFATE) 1 g ORAL BID AC Vargas Reid MD 1 g at 08/28/22 0511 venlafaxine ER 150 mg cap(s) (EFFEXOR XR) 150 mg ORAL DAILY Vargas Reid MD 150 mg at 08/27/222099 balsalazide 2,250 mg cap(s) (COLAZAL) 2,250 mg ORAL TID Vargas Reid MD 2,250 mg at 08/27/22 2100 Date 08/27/22699 - 08/28/22 0659 08/28/22 07 - 08/29/22 0659 Shift 0450-7199 9545-1593 0121-4026 24 Hour Total 3660-5972 6115-3331 5403-2964 24 Hour Total INTAKE PO 840 944 356 5746 PO 840 339 953 3000 IV 683.5 350 1033.5 Volume (mL) 24 24 Volume (mL) 51.5 51.5 Volume (mL) (rocuronium injection) 5 5 Volume (mL) (ePHEDrine injection) 3 3 Volume (mL) (lactated ringers iv infusion) 500 500 Volume (mL) (NaCl 0.9% iv infusion) 75 350 425 Volume (mL) (NaCl 0.9% iv infusion) 25 25 Shift Total 1523.5 369 246 2229.5 OUTPUT Urine 668 412 3960 2400 Void (ml) 788 169 5782 2400 Blood 5 5 Estimated Blood loss 5 5 Shift Total 490 418 7849 2405 Weight (kg) Recent Labs 08/28/22 0518 CA 10.2 Calcium, Total Date Value Ref Range Status 08/28/2022 10.2 8.5 - 10.2 mg/dL Final TSH Date Value Ref Range Status 05/16/2021 0.328 0.270 - 4.200 uU/mL Final 1,25 Dihydroxy Vitamin Total Date Value Ref Range Status 04/18/2022 35.6 19.9 - 79.3 pg/mL Final PTH, Intact Date Value Ref Range Status 08/28/2022 12 (L) 15 - 65 pg/mL Final Elio Hackett MD General Surgery, PGY-4 August 28, 2022 7:45 AM [id number] [facility] 08-27-2022 Note HNO ID: [id number] Author: Vargas Reid MD Service: Endocrine Surgery Author Type: Physician Type: Progress Notes Filed: 08/27/2022 4:56 PM Note Text: ENDOCRINE SURGERY INPATIENT PROGRESS NOTE Name: Jesus Wolf Date: August 27, 2022 POD# 0 S/P parathyroidectomy S: Postoperative check was done and the patient is recovering appropriately. No dysphagia. No dysphonia. No paresthesias. No signs of hematoma. O: MEDICATIONS: Current Facility-Administered Medications Medication Dose Route Frequency acetaminophen 500 mg tab(s) (TYLENOL) 500 mg ORAL q 4 H PRN benzocaine-menthol 1 Lozenge (CHLORASEPTIC) 1 Lozenge MUCOUS MEMBRANE (TOPICAL MOUTH AND THROAT) q 2 H PRN phenol 1 [place] (CHLORASEPTIC) 1 [place] MUCOUS MEMBRANE (TOPICAL MOUTH AND THROAT) q 2 H PRN ondansetron (PF) 4 mg injection (ZOFRAN) 4 mg INTRAVENOUS q 6 H PRN NaCl 0.9% iv flush bag 20 mL INTRAVENOUS PRN cutmbbn-dldhwzkep-vsgwuei D3 500 mg-5 mcg (200 unit) 1 tablet 1 tablet ORAL TID calcium carbonate 500 mg chewable tab(s) (TUMS) 500 mg ORAL q 1 H PRN NaCl 0.9% iv infusion 75 mL/hr INTRAVENOUS CONTINUOUS atorvastatin 40 mg tab(s) (LIPITOR) 40 mg ORAL DAILY busPIRone 10 mg tab(s) (BUSPAR) 10 mg ORAL AT BEDTIME celecoxib 200 mg cap(s) (CeleBREX) 200 mg ORAL BID cholestyramine low-calorie 4 g packet (QUESTRAN) 4 g ORAL BID w MEALS colestipol 2 g tab(s) (COLESTID) 2 g ORAL BID ferrous sulfate 325 mg tab(s) 325 mg ORAL DAILY furosemide 40 mg tab(s) (LASIX) 40 mg ORAL DAILY levothyroxine 75 mcg tab(s) (SYNTHROID) 75 mcg ORAL DAILY [START ON 08/28/2022] metoprolol succinate ER 50 mg tab(s) (TOPROL XL) 50 mg ORAL DAILY (9 AM) metoprolol succinate ER 100 mg tab(s) (TOPROL XL) 100 mg ORAL DAILY AT [address] 40 mg tab(s) (PROTONIX) 40 mg ORAL BID spironolactone 50 mg tab(s) (ALDACTONE) 50 mg ORAL DAILY sucralfate 1 g tab(s) (CARAFATE) 1 g ORAL BID AC venlafaxine ER 150 mg cap(s) (EFFEXOR XR) 150 mg ORAL DAILY balsalazide 2,250 mg cap(s) (COLAZAL) 2,250 mg ORAL TID PHYSICAL EXAM: BP 108/55 Pulse 75 Temp 36.8 ?C (98.2 ?F) (Oral) Resp 16 LMP 07/17/2011 (Within Years) SpO2 94% General Appearance: In no acute distress. Well appearing. Neuro: Alert and oriented x3. Neck: soft, incision clean/dry/intact, no evidence of deep neck hematoma, superficial ecchymosis inferior to incision on superior chest Abdomen: Soft. Non-distended. Non-tender. No guarding or rebound. Extremities: Warm and well perfused. Intake/Output Summary (Last 24 hours) at 08/27/2022 1655 Last data filed at 08/27/2022 1600 Gross per 24 hour Intake 2098.49 ml Output 755 ml Net 1343.49 ml LABS: Calcium, Total Date Value Ref Range Status 07/31/2022 10.9 (H) 8.5 - 10.2 mg/dL Final No results found for: MG Phosphorus Date Value Ref Range Status 08/28/2010 4.3 2.5 - 4.5 mg/dL Final TSH Date Value Ref Range Status 05/16/2021 0.328 0.270 - 4.200 uU/mL Final PTH, Intact Date Value Ref Range Status 07/31/2022 99 (H) 15 - 65 pg/mL Final ASSESSMENT: Jesus Wolf is POD 0 and recovering well. PLAN of Care: - Multimodal pain regimen, minimize narcotics - Regular diet - Scheduled calcium - Follow-up PTH and Ca in AM - SCDs, no SQH, holding anticoagulation due to elevated bleeding risk - Dispo: monitor overnight for any signs of neck hematoma, plan for discharge in AM A review of daily goals, interventions, and plan of care with the multidisciplinary team and patient has been conducted. The patient?s concerns have been addressed and the patient agrees to proceed with today?s plan of care. SIGNATURE: Vargas Reid MD [phone] Clinical Associate Endocrine and Metabolism [place], Department of Endocrine Surgery [facility] 08-27-2022 Note HNO ID: [id number] Author: Pinky Fitzgerald APRN.ELECTRONIC SYSTEMS TECHNICIAN Service: ? 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 and patient Staffing ELECTRONIC SYSTEMS TECHNICIAN: Pinky Fitzgerald APRN.ELECTRONIC SYSTEMS TECHNICIAN Indications and Patient Condition Indications for airway management: anesthesia Preoxygenated: yes anesthesia circuit Patient position: sniffing Method: asleep Manual In-Line Stabilization: Yes Difficult Mask: No Final Airway Details Final airway type: endotracheal airway Final Endotracheal Airway: ETT Cuffed: yes Successful intubation technique: video laryngoscopy Devices used: iFormulary Endotracheal tube insertion site: oral Blade size: #3 ETT size (mm): 7.0 Measured from: teeth Measurement (cm): 21 Placement verified by: capnometry Cormack-Lehane Classification: grade I - full view of glottis Number of attempts at approach: 1 SIGNATURE: Pinky Fitzgerald APRN.CRNA PATIENT NAME: Jesus Wolf DATE: August 27, 2022 TIME: 8:43 AM CSN: [id number] [facility] 08-26-2022 Miscellaneous Notes 08/25/22 Negative Covid Text indexed documented in this encounter [facility] 08-22-2022 Miscellaneous Notes Jesus has arranged for her covid test and will hand carry the results with her to surgery. She will also fax a copy for her record. Sarai Menjivar RN documented in this encounter [facility] 08-22-2022 Miscellaneous Notes Phoned and left Jesus a message to please call the office. We have not received a letter from her clinical nurse specialist in regards to her Eliquis. We have left multiple messages and have spoken with Dr. Couch office but have not gotten a response. Sarai Menjivar RN documented in this encounter [facility] 08-21-2022 Miscellaneous Notes Phoned and spoke with Mara at Dr. Conway's office . She said that the clearance letter is waiting for Dr. Conway to sign. I told her that surgery is next week and she needs to know about when pt can stop the Eliquis. I asked her if Dr. Conway was in the office and she said he is seeing patients. I asked her to please try and expedite this . Sarai Menjivar RN documented in this encounter [facility] 07-31-2022 Instructions Mara Cortes APRN.ASSET PROTECTION DETECTIVE - 07/31/2022 9:19 AM EST PATIENT PREOPERATIVE INSTRUCTIONS No ref. provider found has scheduled you for your procedure at this surgery center: [facility] Scheduling Office: [phone] --[address] [place] [address]. Please read below carefully for your personalized instructions. Dietary Restrictions: - No solid food after midnight. - You may have 12 ounces of clear liquids (water, clear juices such as apple juice or gatorade, carbonated beverages, clear tea, black coffee, jello) until 2 hours before scheduled arrival at facility. Medications: Unless instructed differently below, stay on all of your medications until your surgery. Approved medications to take the morning of surgery with a sip of water: Buspirone(Buspar), Levothyroxine(Synthroid), Metoprolol, Cellcept, Protonix, Effexor If you start any new medications after today's visit, please contact the surgeon's office. Blood Thinning Medications: - Stop NSAIDS (Ibuprofen, Advil, Aleve, Motrin, Celebrex, Mobic, etc.) 7 days before surgery, as directed by your surgeon. - Stop Aspirin 7 days before surgery, as directed by your surgeon. - Do NOT stop aspirin or other anticoagulants without consulting with your clinical nurse specialist or prescribing physician. - Stop Vitamin E, ALL multi-vitamins, herbals and dietary supplements 7 days before surgery. - You may take Tylenol (Acetaminophen) or any of your pain medications that do not contain aspirin or NSAIDS as needed. Important Reminders: - Candy, mints, and tobacco products are NOT permitted the morning of surgery. - Hearing aids, dentures and glasses may be worn the morning of surgery. - NO jewelry, body piercings, makeup, hairpins or contacts are to be worn the day of surgery. If you develop symptoms such as a fever, cold, or flu, or have other changes to your health within TWO DAYS of scheduled surgery or the morning of surgery, please contact the surgery center above. Personal Belongings: -Please have photo ID and insurance cards. -If you do not have a copy of advance directives on file with us, please bring a copy with you on the day of surgery. - Leave ALL valuables and money at home or with family members. For Outpatient Procedures: - YOU MUST HAVE A RESPONSIBLE ASSISTANT GOLF PROFESSIONAL TAKE YOU HOME. A DIGITAL STRATEGY MANAGER OR SR. DIRECTOR CANNOT BE MADE A RESPONSIBLE ASSISTANT GOLF PROFESSIONAL. - We recommend that a responsible person stays with you overnight to take care of you. - You cannot stay in a hotel alone after outpatient surgery. You will not be permitted to have your surgery, if you do not have someone to take care of you. Arrival Time for Surgery: - To obtain your arrival time for surgery, call your physician's office the day before your surgery. - If your surgery is scheduled for Thursday, call the Thursday before. Your surgeon s bomb technician will tell you what time to call the office. - If you have not reached the departmental bomb technician by 5 P.M., call [phone] after 5 P.M. the day before your surgery. Please be aware that emergency situations arise, which may delay or change your surgical time. If this happens, we will notify you as soon as possible and regret any inconvenience. If you already have an Advance Directive, please fax a copy to [phone] or email to for it to be added to your chart. If you do not have an Advance Directive, you can find the appropriate form and more information at [email or web address]. We recommend that you complete the Advance Directive form found on the website and bring it with you the day of your surgery. It can be witnessed and scanned into your chart that day. Mara Cortes APRN.JOHNATHAN documented in this encounter [facility] 07-31-2022 History and physical note HISTORY AND PHYSICAL EXAMINATION SERVICE DATE: 07/31/2022 SERVICE TIME: 8:51 AM PRIMARY CARE PHYSICIAN: Wojciech Treviño MD, DO REASON FOR VISIT: Jesus Wolf is a 67 year old female who is scheduled for PARATHYROIDECTOMY at the request of Dr. Bryan Painting for consultation. My final recommendation will be communicated back to the requesting physician by way of shared medical record or letter. The patient has the following: ACTIVE PROBLEM LIST Edema Proteinuria Essential Hypertension Atrial Fibrillation (Hcc) Membranous Glomerulonephritis Vitamin D Deficiency Sle (Systemic Lupus Erythematosus) (Hcc) Fibromyalgia Sleep Apnea Encounter for Long-Term (Current) Use of Other High-Risk Medications Osteoarthritis of ankle and foot HALLUX VALGUS ACQUIRED Other Hammer Toe (Acquired) Enthesopathy of Ankle and Tarsus, Unspecified Lesion of Plantar Nerve Neuralgia, Neuritis, and Radiculitis, Unspecified Foot Pain, Left Other Synovitis and Tenosynovitis, Unspecified Ankle and Foot Osteoarthrosis of Ankle and Foot, Left Synovitis of Left Foot Synovitis of Right Foot Vocal Cord Edema Primary Osteoarthritis of Both Feet Synovitis of Foot Conjunctivitis Keratopathy Obesity, Class III, BMI >= 40 Hypothyroidism Chronic Congestive Heart Failure (Hcc) Status Post Right Hip Replacement S/P Total Hip Arthroplasty Mixed Hyperlipidemia Obesity, Class II, Bmi 35-39.9 Thoracic Ascending Aortic Aneurysm Hypercalcemia Hyperparathyroid (Hcc) Subjective CHIEF COMPLAINT: Hyperparathyroid HPI: 67 year old female with hyperparathyroidism. Patient was getting worked up for hypercalcemia. Ms Wolf has a past medical history of hypertension, Afib s/p ablation x2 (2018, 2019) currently on Eliquis, MONI, CHF (preserved EF), lupus, hypothyroidism on levothyroxine, ulcerative colitis. PAST MEDICAL HISTORY Diagnosis Date Arrhythmia Atrial fibrillation (HCC) on coumadin Herniated intervertebral disk HTN (hypertension) Hyperlipemia Kidney disease MONI (obstructive sleep apnea) no longer using CPAP since 60 lb weight loss Other acute pancreatitis with uninfected necrosis SLE (systemic lupus erythematosus) (HCC) Sleep apnea 07/29/2012 PAST SURGICAL HISTORY Procedure Laterality Date APPENDECTOMY CARPAL TUNNEL RIGHT WRIST surgical correction COLONOSCOPY 05/10/2019 [facility] COLONOSCOPY GEN ANES 07/23/2020 Dr. Reinoso/Diverticulosis/Hemorrhoids/ Ulcerative Colitis/Rpt in 2 yrs. EGD EUS 01/11/2020 [facility] LASIK Right prior to 1999 MRI PANC/JEANIE WO/W IVCON 12/20/2019 [facility] CYSTECTOMY PAST SURGICAL HISTORY OF 07/2013 bilateral foot procedure, Sherry PAST SURGICAL HISTORY OF Ablation X2 TONSILLECTOMY HX FAMILY HISTORY Problem Relation Age of Onset Alzheimer's Disease Father Hypertension Father Cataract Mother Hypertension Mother Colon Cancer Mother Cataract Sister Hypertension Sister Colon Cancer Paternal Uncle SOCIAL HISTORY: Social History Tobacco Use Smoking status: Never Smokeless tobacco: Never Vaping Use Vaping Use: Never used Substance Use Topics Alcohol use: Yes Comment: very rare Drug use: No Comment: denies tx for drug/alcohol abuse in the past. Prior to Admission medications as of 07/31/22 0851 Medication Sig Last Dose Taking pantoprazole DR (PROTONIX) 40 mg tablet Take 1 tablet by mouth twice daily. Yes alendronate (FOSAMAX) 70 mg tablet Take 1 tablet by mouth one time a week. In the morning with a full glass of water, on an empty stomach. Do not take anything else by mouth or lie down for the next 30 minutes. Yes colestipol (COLESTID) 1 gram tablet Take 2 tablets by mouth twice daily. Yes mycophenolate Mofetil (CELLCEPT) 500 mg tablet take 1 tablet by mouth daily Yes Mesalamine (LIALDA) 1.2 gram EC tablet Take 4 tablets by mouth once daily. Yes celecoxib (CELEBREX) 200 mg capsule Take 200 mg by mouth twice daily. Yes hydrOXYchloroQUINE (PLAQUENIL) 200 mg tablet take 1 tablet by mouth twice a day with food Yes metoprolol succinate ER (TOPROL XL) 50 mg 24 hr tablet 50mg in am and 100mg in pm. Yes ferrous sulfate (IRON) 325 mg (65 mg iron) tablet Take 1 tablet by mouth once daily. Yes apixaban (ELIQUIS) 5 mg tab(s) Take 1 tablet by mouth twice daily. Yes cholestyramine-sucrose (QUESTRAN) 4 gram powder Take 4 g by mouth twice daily with meals. Yes sucralfate (CARAFATE) 100 mg/mL suspension Take 10 mL by mouth four times daily. Yes atorvastatin (LIPITOR) 40 mg tablet Take 1 tablet by mouth once daily. Yes Bifidobacterium infantis (ALIGN ORAL) Take by mouth once daily. Yes belimumab (BENLYSTA INTRAVENOUS) Inject intravenously. Patient reports she receives infusion every 3 months Yes venlafaxine ER (EFFEXOR XR) 150 mg 24 hr capsule Take 1 capsule by mouth once daily. Yes levothyroxine (SYNTHROID) 75 mcg tablet Take 75 mcg by mouth once daily. Yes furosemide (LASIX) 40 mg tablet Take 40 mg by mouth once daily. Yes busPIRone (BUSPAR) 10 mg tablet Take 10 mg by mouth daily at bedtime. Yes spironolactone (ALDACTONE) 50 mg tablet Take 50 mg by mouth once daily. Yes Cholecalciferol, Vitamin D3, 2,000 unit cap Take by mouth once daily. Yes vitamin b complex(B COMPLEX TAB) one daily Yes multivitamins w-minerals/lut(CENTRUM SILVER TAB) Take one(1) tablet daily. Yes MV with Sff-Cplbxqiq-Pfzpzn (CENTRUM SILVER) 0.4 mg-300 mcg- 250 mcg tab Take 1 tablet by mouth once daily. No medication comments found. ALLERGIES Allergen Reactions Dofetilide Other: See Comments, Anaphylaxis V-tach Sulfa (Sulfonamide * Vomiting total body swelling and kidney shut down, body aches and rash Contrast Dye Other: See Comments (Deep seafood) hot flashes, sweating. Codeine Other: See Comments severe headaches Compazine [Prochlor* Other: See Comments loss control of left side of face Tetnus [Tetanus Vac* Other: See Comments red spot in area of shot COVID VACCINATION STATUS: Fully vaccinated REVIEW OF SYSTEMS: PAIN ASSESSMENT: General: No weight loss, malaise or fevers. Neuro: No history of TIA's, stroke, LUMBER SORTER MACHINE tumor, impaired sensorium, hemiplegia, paraplegia or quadraplegia. No neurological symptoms or problems. Respiratory: Positive for MONI non compliant with CPAP , Negative for No history of current cough or dyspnea, or pneumonia in the past 6 weeks. No history of respiratory/pulmonary symptoms or problems Cardiovascular: Positive for: HLD, Hypertension History of A-fib s/p ablation on Eliquis +TAAA 4.6 cm following by cardiology Dr. Conway +CHF on Aldactone no history of angina, VT, cardiac surgery or stents. Denies rest pain, gangrene or revascularization/amputation for PVD GI: Positive for GERD, PUD, ulcerative Colitits History of Pancreatitis : No history of dysuria, frequency or incontinence,, stones or chronic kidney disease, No difficulty urinating, nocturia > 1 time per night or hematuria STAFF ANALYST: Negative for abnormal vaginal bleeding, abnormal vaginal discharge. : Denies, Patient's last menstrual period was 07/17/2011 (within years). Endocrine: Hypothyroidism, Hyperparathyroidism Hematology: Chronic anti-coagulation / platelet meds (Eliquis), Iron deficiency anemia on iron supplement Oncology: No history of CA metastasis, chemo within 30 days, or radiotherapy within 90 days. Has not lost 10% of body wt in 6 months. No history of oncological symptoms or problems. Psych: Anxiety, Depression Musculoskeletal: SLE on Cellcept and Plaquenil follows with Rheumatology Skin: Negative for lesions, rash and itching. Objective PHYSICAL EXAM: VITALS: BP 136/92 Pulse 79 Temp (Src) 97 (Temporal Artery) Resp 16 Ht 5' 6 (1.68m) Wt 246 lb (111.6kg) SpO2 99% LMP 07/17/2011 BMI 39.72 kg/(m^2). General: Alert and oriented, No acute distress, Obese Skin: Normal color, no rash, no lesions. HEENT: EOM, pupils equal, round and reactive., No carotid bruits Cardiovascular: Normal S1 & S2, no rubs, murmurs or gallops. No JVD. Pulse regular. Lungs: Normal breath sounds, no wheezes or crackles. Abdomen: Soft, non-tender, no rigidity., Positive bowel sounds Extremities: No deformity, no edema or tenderness, no joint swelling or clubbing. Neurological: Normal cognition and motor skills. Gait normal. No weakness or sensory deficit. Pulses: Carotid and radial pulses normal +2. Diagnostic tests reviewed for today's visit: Lab Value Units Date High Low HB 13.4 g/dL 06/30/2022 15.5 11.5 HCT 39.7 % 06/30/2022 46.0 36.0 WBC 6.55 k/uL 06/30/2022 11.00 3.70 PLT 243 k/uL 06/30/2022 400 150 NA 139 mmol/L 06/30/2022 144 136 K 4.6 mmol/L 06/30/2022 5.1 3.7 GLUC 103 mg/dL 06/30/2022 99 74 BUN 29 mg/dL 06/30/2022 21 7 CREAT 0.96 mg/dL 06/30/2022 0.96 0.58 PTSEC No results within date range. INR No results within date range. APTT No results within date range. ALT 19 U/L 06/30/2022 38 7 AST 24 U/L 06/30/2022 35 13 TBILI 0.6 mg/dL 06/30/2022 1.3 0.2 TSH No results within date range. Lab Value Units Date High Low HCGQT No results within date range. UHCG No results within date range. HCG, BODY* No results within date range. Lab Value Units Date High Low ABORHD No results within date range. ABSCREEN No results within date range. Hemoglobin A1C (%) Date Value 12/06/2020 5.5 03/09/2019 5.5 Most recent labs Most recent EK07/31/2022 normal sinus rhythm, normal axis, normal intervals, reviewed by myself., reviewed by clinical nurse specialist. Impression CONCLUSIONS: - Technically difficult exam due to body habitus. - Exam indication: Systemic lupus, Shortness of breath - The left ventricle is normal in size. Left ventricular systolic function is normal. EF = 64 5% (2D biplane) - The right ventricle is normal in size. Right ventricular systolic function is normal. - The left atrial cavity is moderately dilated. Severe MAC. - The visualized aorta is dilated with a maximal dimension of 4.6 cm. - Estimated right ventricular systolic pressure is 25 mmHg consistent with normal pulmonary artery pressures. Estimated right atrial pressure is 3 mmHg based on IVC assessment. - Exam was compared with the prior OUTSIDE echocardiographic exam performed on 03/15/19. All in Epic Assessment/Plan Essential hypertension Assessment: stable on medication To take medication morning of surgery BP today 136/92 Atrial fibrillation (HCC) Assessment: stable in NSR History of ablation x2 on Eliquis Follows with Dr. Carpenter To get clearance Chronic congestive heart failure (HCC) Assessment: on Aldactone Mixed hyperlipidemia Assessment: stable on medication Thoracic ascending aortic aneurysm (HCC) Assessment: stable on 4.6cm following with yearly Sleep apnea Assessment: non compliant with CPAP Hypothyroidism Assessment: stable on levothryoxine SLE (systemic lupus erythematosus) (HCC) Assessment: Follows with Rheumatology On Plaquenil and Cellcept Obesity, Class III, BMI >= 40 Assessment: BMI 39.71 METS: Climb a flight of stairs or walk up a hill (5.50 METs) Patient denies any chest pain or undue shortness of breath with the above physical activity. ASA Class: 3 ANESTHESIA FINDINGS: Intubation History: No history of difficult intubation Significant Anesthesia Considerations: None Airway Exam: General: Morbid obesity Mallampati Score is CLASS II ULBT: Class I - Lower incisors can bite the upper lip above the lizeth line Neck: Normal appearance and function, Distance from hyoid to mentum during neck extension is at least 3 finger breaths, Short neck, thick neck Mouth: Normal tongue size and Mouth opening greater than 2 finger breaths Dentition: Intact Airway History: No abnormal airway history Sleep Apnea Probability Snores loudly: No Tired, fatigued or sleepy in daytime: Yes Stops breathing or choking/gasping during sleep: Yes High blood pressure: Yes Sleep Apnea Probability Score 07/17/2022 07/03/2020 Sleep Apnea Screen V2 55 (Recommend sleep study) 53.86 (Recommend sleep study) PLAN This patient is optimally prepared for surgery pending LABS and Coag Clearance / Cardiac Clearance . CONSULTS: The following consults have been initiated at this time: Cardiology Consult for cardiac clearance for a-fib . The Following Tests/Procedures Have Been Initiated: Orders Placed This Encounter MV with Inv-Tddewdte-Hejogs (CENTRUM SILVER) 0.4 mg-300 mcg- 250 mcg tab Sig: Take 1 tablet by mouth once daily., Orders per surgeon Planned Anesthetic: General Instructions Given to Patient: Instructions located in the after visit summary. Patient given verbal and written preop instructions and voices comprehension and compliance. SIGNATURE: Mara Cortes APRN.CNP PATIENT NAME: Jesus Wolf DATE: July 31, 2022 TIME: 8:51 AM documented in this encounter [facility] 07-23-2022 Miscellaneous Notes Last colon 09/12/2021 - pt is due in 2-3 years. Recall in. Bang Spears RN Per note patient was to repeat colonoscopy in 2 years. Patient is currently seeing Dr Blanton. Please have her place orders and assist with scheduling if appropriate. Emily Crawford LPN July 23, 2022 5:04 PM documented in this encounter [facility] 07-07-2022 History and physical note H&P ENDOCRINE SURGERY SERVICE DATE: 07/07/2022 SERVICE TIME: 1:30 pm Consultation requested by Dr. Bejarano for an opinion regarding primary hyperparathyroidism. My final recommendations will be communicated back to the requesting physician by way of shared Medical record or letter to requesting physician via US mail. Subjective HPI: Ms. Jesus Wolf is a 67 year old female who presented to Dr. Bejarano for work up of hypercalcemia. Further work up was consistent with primary hyperparathyroidism. Looking back, her hypercalcemia has been present since early 2019. Ms Wolf has a past medical history of hypertension, Afib s/p ablation x2 (2018, 2019) currently on Eliquis, MONI, CHF (preserved EF), lupus, hypothyroidism on levothyroxine, ulcerative colitis. She denies prior issues with general anesthesia. Her medication list is reviewed and she has allergy to contrast dye. She is taking about 40 mg of Lasix a day for the last three years. She is not currently on steroid. She is not a smoker. She is and is working. FUNCTIONAL STATUS: Walk indoors, such as around the house (1.75 METs) Partially dependent COMPLETE REVIEW OF SYSTEMS: ENDO: thyroid disorder and Steroids for Chronic Problems CARDIAC: irregular heart beat, CHF, and hypertension RESPIRATORY: Negative for cough, wheezing or shortness of breath GI: no nausea, fullness, vomiting, diarrhea, constipation, GI bleeding or heartburn : no dysuria, frequency, hesitancy, hematuria, polyuria or nocturia HEMATOLOGY/ONCOLOGY: negative MUSCULOSKELETAL: Joint pain both knee(s), Joint stiffness both knee(s), and Muscle cramping both shoulder(s), knee(s), ankle(s), and foot joint(s) NERVOUS SYSTEM: no numbness, paresthesias, weakness, cramping, burning or dizziness Objective PHYSICAL EXAM: BP (!) 124/48 Pulse 80 Ht 170.2 cm (5' 7 ) Wt 116.4 kg (256 lb 9.6 oz) BMI 40.19 kg/m Body mass index is 40.19 kg/m . Appearance: Obese Eyes: PERRLA, conjunctiva and sclera normal Neck: Supple, no adenopathy; thyroid symmetric, normal size, no bruits Heart: RRR without murmur, gallop, or rubs. No ectopy Lungs Lungs clear to auscultation. No wheezing, rhonchi, rales. Abdomen Not examined Extremities: No deformities, edema, skin discoloration, clubbing or cyanosis. Good capillary refill. Neuro: Awake, alert and oriented x 3 and No involuntary motions. - PARATHYROID DATA SHEET Latest Ref Rng & Units 03/13/2022 04/18/2022 04/22/2022 06/12/2022 06/30/2022 CALCIUM 8.5 - 10.2 mg/dL CALCIUM 8.5 - 10.2 mg/dL 11.0 (H) 10.4 (H) 10.8 (H) PTH, INTACT 15 - 65 pg/mL 83 (H) 89 (H) PHOSPHORUS 2.5 - 4.5 mg/dL ALKALINE PHOSPHATASE 34 - 123 U/L 112 134 (H) 119 PERIOD hr 24 hour urine creatinine #2 0.8 - 1.8 g/24 hr CREAT 0.58 - 0.96 mg/dL CREATININE 0.58 - 0.96 mg/dL 1.01 (H) 1.27 (H) 0.96 CREATININE 24 HR UR 0.8 - 1.8 g/24 hr VITAMIN D 25 HYDROXY 31.0 - 80.0 ng/mL VITAMIN D 25 HYDROXY 31.0 - 80.0 ng/mL 58.2 VIT D1,25 DIHYDROXY 19.9 - 79.3 pg/mL 35.6 ALBUMIN 3.9 - 4.9 g/dL ALBUMIN 3.9 - 4.9 g/dL 4.3 4.2 4.3 CREATININE 24 HR UR 0.8 - 1.8 g/24 hr CREATININE 24 HR UR 0.800 - 1.800 g/24 hr 0.935 CALCIUM, URINE 24 HR 100.0 - 300.0 mg/24 hr 108.5 A neck US was performed. This demonstrated a thyroid gland that is small in size with coarse background echogenicity. A few subcentimeter nodules are seen, overall unremarkable. There is no obvious parathyroid adenoma seen. Benign appearing lymph nodes are seen along the jugular chain bilaterally. She is undergoing her parathyroid scan today. Her most recent DEXA was from 02/2022 and it demonstrated a T score of -2.1 in the left hip, consistent with osteoepenia. Impression/Recommendations Ms. Jesus Wolf is a 67 year old female with multiple past medical issues present for evaluation of primary hyperparathyroidism. I believe she would be a good candidate for parathyroidectomy and would need to have medical clearance prior to her surgery. She is agreeable to the plan. All the risks, benefits, and alternatives were discussed with the patient. The patient was given the opportunity to ask questions. Consent was obtained. Bryan Painting MD documented in this encounter [facility] 07-07-2022 History of Present illness Narrative RADIOLOGY SERVICE PROGRESS NOTE SERVICE DATE: 07/07/2022 SERVICE TIME: 10:54 AM PATIENT IDENTITY VERIFICATION COMPLETED USING TWO (2) STANDARD IDENTIFIERS: Name and Date of confirmed by patient verbally FALL SCREENING: Has the patient had 2 falls in the last year or 1 fall with injury or currently using an Ambulatory Assistive Device (Walker, Cane, Wheelchair, Crutches, etc.)? No PATIENT GENDER DATA: .female : No ALLERGIES: Reviewed and unchanged MEDICATIONS REVIEWED: Yes PATIENT RELEVANT IMPLANT DATA REVIEWED: Not Applicable CREATININE: Creatinine Date Value Ref Range Status 06/30/2022 0.96 0.58 - 0.96 mg/dL Final 06/12/2022 1.27 (H) 0.58 - 0.96 mg/dL Final 03/13/2022 1.01 (H) 0.58 - 0.96 mg/dL Final Estimated Glomerular Filtration Rate Date Value Ref Range Status 06/30/2022 65 >=60 mL/min/1.73m Final Comment: Estimated Glomerular Filtration Rate (eGFR) is calculated using the 2020 CKD-EPI creatinine equation. This equation utilizes serum creatinine, sex, and age as parameters. The creatinine assay has traceable calibration to isotope dilution-mass spectrometry. Refer to KDIGO guidelines for clinical interpretation. In patients with unstable renal function, e.g. those with acute kidney injury, the eGFR may not accurately reflect actual GFR. eGFR- Date Value Ref Range Status 05/16/2021 >60 Final P.O.C.T. RESULTS: N/A July 07, [address] PERFORMED: No IV SITE: Ambulatory: Not applicable POST EXAM PIV STATUS: Not applicable PROCEDURE TYPE: NM Parathyroid: 321.7 microcurries of Nal 123 capsules was administered orally at 10:40. 28.2 mCi of Tc99m Sestamibi was injected IV at 1416. ADMINISTRATION TIME: 1040/1416 PATIENT DISCHARGED TO: Ambulatory patient, left [place] department area. A Diagnostic radioactive procedure has taken place, with no further precautions necessary other than routine body substance precautions. More information regarding radiation safety can be found using this link: [email or web address] SIGNATURE: RT Zaria(R) PATIENT NAME: Jesus Wolf DATE: July 07, 2022 TIME: 10:54 AM PAGER/CONTACT #: documented in this encounter [facility] 07-01-2022 Miscellaneous Notes 07/01/22: INTAKE COMPLETE Patient informed about MIBI. Scheduled on patient's behalf. ENDOCRINE SURGERY PATIENT WORKSHEET Initial Call Date: July 01, 2022 Reason for Consult/ Referral: Hyperparathyroid, Hypercalcemia PATIENT DEMOGRAPHICS Name: Jesus Wolf [facility]#: [id number] : 1955 AGE: [age] year old Contact Numbers: Home: (home) Work: There is no work phone number on file. PATIENT PHYSICIAN INFORMATION Referring Doctor: Lemuel Bejarano Address: Phone: [employer]: same Address: Phone: PCP: Wojciech Treviño MD ([facility]) [address] [facility] [place] [address] PAST TREATMENT Office notes: SEE EPIC Medications: ELIQUIS Pre-Visit Testing Component Latest Ref Rng & Units 03/13/2022 04/18/2022 06/12/2022 Protein, Total 6.3 - 8.0 g/dL 6.4 5.8 (L) Albumin 3.9 - 4.9 g/dL 4.3 4.2 Calcium 8.5 - 10.2 mg/dL 11.0 (H) 10.4 (H) Bilirubin, Total 0.2 - 1.3 mg/dL 0.6 0.5 Alkaline Phosphatase 34 - 123 U/L 112 134 (H) AST 13 - 35 U/L 32 23 ALT 7 - 38 U/L 30 20 Glucose 74 - 99 mg/dL 86 104 (H) BUN 7 - 21 mg/dL 25 (H) 33 (H) Creatinine 0.58 - 0.96 mg/dL 1.01 (H) 1.27 (H) Sodium 136 - 144 mmol/L 138 142 Potassium 3.7 - 5.1 mmol/L 5.0 5.6 (H) Chloride 97 - 105 mmol/L 105 109 (H) CO2 22 - 30 mmol/L 23 22 Anion Gap 9 - 18 mmol/L 10 11 eGFR >=60 mL/min/1.73m 62 47 (L) Vitamin D 25 Hydroxy 31.0 - 80.0 ng/mL 58.2 Vit D1,25 Dihydroxy 19.9 - 79.3 pg/mL 35.6 PTH, Intact 15 - 65 pg/mL 83 (H) 89 (H) Component Latest Ref Rng & Units 04/22/2022 04/22/2022 8:30 AM 8:30 AM Creatinine 24 hr Ur 0.800 - 1.800 g/24 hr 0.935 Period hours 24 24 Urine Volume 24 hour mL 1,750 1,750 Calcium, 24 Hr Urine 100.0 - 300.0 mg/24 hr 108.5 Imaging Reports: SEE [facility] CD of Images: SEE [facility] FNA: no FNA Slides: N/A Has the patient ever had thyroid or parathyroid surgery before: No Operative Reports: NONE AVAILABLE Pathology Reports: NONE AVAILABLE documented in this encounter [facility] 06-12-2022 History of Present illness Narrative Infusion Charting Note: Pt ID by name and birthdate. yes Since the last infusion has patient: Had any major changes to health since last infusion? no Been to the emergency room? no Been Hospitalized? no Had any infections? no Taken any antibiotics? no Had surgery or has upcoming surgery? Yes has OV with surgeon 07/07/2022 for Parathryroid surgery possibility In the past 7 days has patient had: Fever/chills/night sweats? no New cough or cold symptoms (including sore throat)? no Nausea, vomiting, diarrhea? no Unusual swelling in ankles or feet? no Burning/blood with urination or had urinary frequency? no New weakness, numbness, stumbling, or falls? no A new rash or open sores? no Medication allergy reviewed yes. Patient here for Benlysta. Benlysta runs for 2 hours due to previous reaction. Jania Oscar RN documented in this encounter [facility] 06-11-2022 Instructions Lemuel Bejarano V, MD - 06/11/2022 3:06 PM EDT [phone]-- [facility] Dr Bryan Cantrell documented in this encounter [facility] 06-11-2022 History of Present illness Narrative Reason for consultation: evaluation of primary hyperparathyroidism Referring Physician: Julia Peña [address] [address] My final recommendations will be communicated back to the requesting physician by way of shared Medical record or letter via US mail. HISTORY OF PRESENT ILLNESS; Ms. Wolf is a 67 year old female presenting as a new patient to me with a chief complaint of primary hyperparathyroidism. Hypercalcemia was initially diagnosed 2021. She currently is not experiencing symptoms of hypercalcemia. Severity, modifying factors, and associated signs and symptoms are as follows: polyuria: no polydipsia: no renal insufficiency: yes: nephrolithiasis: no nausea/vomiting: no anorexia: no constipation: no hx of pancreatitis: no hx of peptic ulcer disease: no muscle weakness: no bone pain: yes: decrease in concentration:no increase in fatigue: yes: calcium or vitamin D supplementation: no hx of fractures: no hx of lithium or thiazide diuretics: no Overall, the patient has no acute complaints at this time. PAST MEDICAL HISTORY Diagnosis Date Arrhythmia Atrial fibrillation (HCC) on coumadin Herniated intervertebral disk HTN (hypertension) Hyperlipemia Kidney disease MONI (obstructive sleep apnea) no longer using CPAP since 60 lb weight loss Other acute pancreatitis with uninfected necrosis SLE (systemic lupus erythematosus) (HCC) Sleep apnea 07/29/2012 PAST SURGICAL HISTORY Procedure Laterality Date APPENDECTOMY CARPAL TUNNEL RIGHT WRIST surgical correction COLONOSCOPY 05/10/2019 [facility] COLONOSCOPY GEN ANES 07/23/2020 Dr. Reinoso/Diverticulosis/Hemorrhoids/ Ulcerative Colitis/Rpt in 2 yrs. EGD EUS 01/11/2020 [facility] LASIK Right prior to 1999 MRI PANC/JEANIE WO/W IVCON 12/20/2019 OVARIAN CYSTECTOMY PAST SURGICAL HISTORY OF 07/2013 bilateral foot procedure, [facility] PAST SURGICAL HISTORY OF 2018,2019 Ablation X2 TONSILLECTOMY HX FAMILY HISTORY Problem Relation Age of Onset Alzheimer's Disease Father Hypertension Father Cataract Mother Hypertension Mother Colon Cancer Mother Cataract Sister Hypertension Sister Colon Cancer Paternal Uncle Social History Tobacco Use Smoking status: Never Smokeless tobacco: Never Vaping Use Vaping Use: Never used Substance Use Topics Alcohol use: Yes Comment: very rare Drug use: No Current Outpatient Medications Medication Sig Dispense Refill pantoprazole DR (PROTONIX) 40 mg tablet Take 1 tablet by mouth twice daily. 60 tablet 3 alendronate (FOSAMAX) 70 mg tablet Take 1 tablet by mouth one time a week. In the morning with a full glass of water, on an empty stomach. Do not take anything else by mouth or lie down for the next 30 minutes. 12 tablet 1 colestipol (COLESTID) 1 gram tablet Take 2 tablets by mouth twice daily. 120 tablet 3 mycophenolate Mofetil (CELLCEPT) 500 mg tablet take 1 tablet by mouth daily 30 tablet 11 Mesalamine (LIALDA) 1.2 gram EC tablet Take 4 tablets by mouth once daily. 360 tablet 1 celecoxib (CELEBREX) 200 mg capsule Take 200 mg by mouth twice daily. hydrOXYchloroQUINE (PLAQUENIL) 200 mg tablet take 1 tablet by mouth twice a day with food 180 tablet 2 metoprolol succinate ER (TOPROL XL) 50 mg 24 hr tablet 50mg in am and 100mg in pm. 270 tablet 3 ferrous sulfate (IRON) 325 mg (65 mg iron) tablet Take 1 tablet by mouth once daily. 90 tablet 3 apixaban (ELIQUIS) 5 mg tab(s) Take 1 tablet by mouth twice daily. 180 tablet 3 atorvastatin (LIPITOR) 40 mg tablet Take 1 tablet by mouth once daily. 90 tablet 3 venlafaxine ER (EFFEXOR XR) 150 mg 24 hr capsule Take 1 capsule by mouth once daily. 90 capsule 3 levothyroxine (SYNTHROID) 75 mcg tablet Take 75 mcg by mouth once daily. furosemide (LASIX) 40 mg tablet Take 40 mg by mouth once daily. spironolactone (ALDACTONE) 50 mg tablet Take 50 mg by mouth once daily. Cholecalciferol, Vitamin D3, 2,000 unit cap Take by mouth once daily. vitamin b complex(B COMPLEX TAB) one daily 0 multivitamins w-minerals/lut(CENTRUM SILVER TAB) Take one(1) tablet daily. 0 cholestyramine-sucrose (QUESTRAN) 4 gram powder Take 4 g by mouth twice daily with meals. (Patient not taking: No sig reported) 240 g 3 sucralfate (CARAFATE) 100 mg/mL suspension Take 10 mL by mouth four times daily. (Patient not taking: No sig reported) 420 mL 1 iv contrast (will be provided with radiology test) MRI PANC/JEANIE Inject, intravenously, once for 1 dose. No IV access, insert saline lock prior to the beginning of sedation, infusion, injection of imaging exam. Discontinue saline lock post exam. If Pt. has a central line or IVAD, may access for administration according to line specific nursing protocol. Once exam is complete flush line and de-access according to line specific nursing protocol in the MR contrast administration guidelines link. (Patient not taking: No sig reported) 1 Each 0 Bifidobacterium infantis (ALIGN ORAL) Take by mouth once daily. (Patient not taking: No sig reported) belimumab (BENLYSTA INTRAVENOUS) Inject intravenously. Patient reports she receives infusion every 3 months (Patient not taking: No sig reported) busPIRone (BUSPAR) 10 mg tablet Take 10 mg by mouth daily at bedtime. (Patient not taking: No sig reported) Current Facility-Administered Medications Medication Dose Route Frequency Provider Last Rate Last Admin perflutren lipid microspheres 1.3 mL in NaCl (PF) 0.9% 10 mL injection (DEFINITY) INTRAVENOUS DIRECTED PRN Mann Ramos MD sodium chloride 0.9 % (flush) 10 mL (BD POSIFLUSH) 10 mL INTRAVENOUS DIRECTED PRN Mann Ramos MD perflutren lipid microspheres 1.3 mL in NaCl (PF) 0.9% 10 mL injection (DEFINITY) INTRAVENOUS DIRECTED PRN Evelin Alicea MD sodium chloride 0.9 % (flush) 10 mL (BD POSIFLUSH) 10 mL INTRAVENOUS DIRECTED PRN Evelin Alicea MD Allergies As of Date: 06/11/2022 Allergen Noted Reaction DOFETILIDE 03/15/2020 Other: See Comments and Anaphylaxis SULFA (SULFONAMIDE ANTIBIOTICS) 02/21/2010 Vomiting CONTRAST DYE 08/28/2010 Other: See Comments CODEINE 02/21/2010 Other: See Comments COMPAZINE [PROCHLORPERAZINE EDISY*02/21/2010 Other: See Comments TETNUS [TETANUS VACCINES AND TOXO*02/21/2010 Other: See Comments Fully Assessed 06/11/2022 REVIEW OF SYSTEMS: General: no fever, chills or acute changes in weight in the last 6 months, no fever, no chills, and no change in weight in the last 6 months Skin: no rashes, pruritis or dry skin Eyes: no blurred or double vision or eye pain Cardiac: denies chest pain, heart palpitations or orthopnea Resp: denies wheezing, productive cough or exertional dyspnea Hematologic: Negative for anemia, easy bleeding and bruising. Genitourinary, Gastrointestinal, Neurological, Musculoskeletal systems were reviewed per HPI. PHYSICAL EXAM: BP 112/64 Pulse 75 Wt 114.7 kg (252 lb 14.4 oz) BMI 39.61 kg/m2 General: AO X3 Skin: skin color, texture, turgor normal, no rashes or lesions. Eyes: Anicteric sclera. Neck: normal Abdomen: soft, non-tender, Extremities: no edema Peripheral Pulses: posterior tibial and doralis pedis pulses 2+ DATA: Creatinine Date Value Ref Range Status 03/13/2022 1.01 (H) 0.58 - 0.96 mg/dL Final PTH, Intact Date Value Ref Range Status 04/18/2022 83 (H) 15 - 65 pg/mL Final Vitamin D 25 Hydroxy Date Value Ref Range Status 04/18/2022 58.2 31.0 - 80.0 ng/mL Final Comment: Classification of 25 OH Vitamin D status: Deficiency/Insufficiency: < or = 30 ng/ml. Sufficiency/Optimal Levels: 31-80 ng/mL Toxicity: > 100 ng/mL. Test performed by chemiluminescent immunoassay. No components found for: IUR150 Calcium Date Value Ref Range Status 05/16/2021 10.3 (H) 8.5 - 10.2 mg/dL Final Calcium, Total Date Value Ref Range Status 03/13/2022 11.0 (H) 8.5 - 10.2 mg/dL Final 12/09/2021 10.3 (H) 8.5 - 10.2 mg/dL Final No results found for: ICA IMAGING: Bone density was done. ASSESSMENT: Ms. Wolf is a 67 year old female presenting as a new patient to me with a chief complaint of primary hyperparathyroidism. RECOMMENDATIONS: 1. Per the [employer] International Workshop guidelines for patients with asymptomatic primary hyperparathyroidism, indication for surgery are as follows: a.) Age < 50 years old (or relative youthfulness) b.) Creatinine clearance < 60 mL/min c.) Serum calcium concentration of 1.0 mg/dL or more above the upper limit of normal d.) T-Score < -2.5 at hip, lumbar spine, or distal radius, or previous fragility fracture. 2. Jesus was encouraged to maintain a moderate dietary intake of calcium, as low calcium diets can lead to further secretion of PTH. We will also measure 25 OH Vitamin D in her, and cautiously replace Vitamin D, if indicated. As Vitamin D defiency has been associated with larger adenomas and higher PTH values. 3. 24 hr urine calcium: low normal range Non suppressed PTh with elevated calcium, highest being 11 and normal vit D Recommended endocrine surgery consult I spent a total of 60 minutes on the date of the service which included preparing to see the patient, [id number] patient care, completing clinical documentation, obtaining and/or reviewing separately obtained history, performing a medically appropriate examination, counseling and educating the patient/family/caregiver, ordering medications, tests, or procedures, communicating with other HCPs (not separately reported), independently interpreting results (not separately reported), communicating results to the patient/family/caregiver, and care coordination (not separately reported). Lemuel Bejarano MD Answers submitted by the patient for this visit: Endocrine Review of Systems (Submitted on 06/11/2022) Fatigue: Yes Night Sweats: No Recent Unintentional Weight Change: No Skin Color Changes: No Post-Nasal Drip: Yes Thyroid Pain (lower neck): No Trouble Swallowing: No Vision Disturbance: No Chest Pain: No Leg Swelling: No Blood Clots?: No Leg Pain while walking?: Yes Difficulty Breathing?: No Heartburn: Yes Nausea: No Vomiting?: No Diarrhea: Yes Constipation: No Abdominal Pain: Yes Bone Pain?: No Muscle Aches: Yes Muscle Weakness: Yes Joint Pain or Stiffness: Yes Headaches: No Dizziness: No Numbness?: No Urgency to Urinate?: No Increased Urination?: No Slow or Small Urine Stream?: No Have your menstrual cycles stopped?: Yes Flushing?: Yes Hot Flashes?: No Increased Thirst: No Change in Body Hair?: No Cold Intolerance: No Heat Intolerance?: Yes documented in this encounter [facility] 05-19-2022 Miscellaneous Notes Patient is scheduled for bilateral cortisone injections with fluoroscopic guidance with Dr. Cervantes on 07/21/22. She would like sooner if any cancellations, however, is not available 05/23 thru 06/08. No PACC or post-op appts needed for this procedure. documented in this encounter [facility] 05-15-2022 Miscellaneous Notes RX was approved on 05/15/22 and [facility] Pt was notified. documented in this encounter [facility] 05-15-2022 Miscellaneous Notes Pt requesting refill son the following medication. Please file if appropriate. documented in this encounter [facility] 05-12-2022 Instructions Julia Peña PA-C - 05/12/2022 11:12 AM EDT Alendronate (Fosamax) Take once weekly. Take first thing in the morning without any other medications, food or drink except for water. Take it standing up with a full glass of water. Do not eat or drink anything for 30 minutes including your medication. Do not lay down after taking it, but you can sit down. Please call [phone] to schedule endocrinology appointment. documented in this encounter [facility] 05-12-2022 History of Present illness Narrative Images from the original note were not included. Osteoporosis and Metabolic Bone Disease Date of Service: 05/12/2022 Patient: Jesus Wolf Medical Record: [id number] Primary Care Physician: Wojciech Treviño MD, DO Last Rheumatology visit: 04/18/2022 (with Julia Peña) History of Present Illness Jesus Wolf is a 67 year old White female who presents on 05/12/2022 for a virtual visit for evaluation of Osteopenia. INTERVAL HISTORY Patient presents virtually today to discuss lab results and treatment plan. Patient's vitamin D is adequate. PTH was elevated at 83. NTX elevated: 109.6. 24 hr urine calcium was normal. Since NTX is elevated and had decline in hip BMD, recommend restarting Fosamax. Discussed 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, risk of ONJ and atypical femur fractures with prolonged use, GI upset with oral formulations. Recommend seeing endocrinology for further evaluation of hyperparathyroidism and hypercalcemia. Started balance training and fall prevention with physical therapy. Osteoporosis History No history of fractures Most Recent BMD Date: 03/13/22 LS: 1.28 g/cm2 Hip - Left: 0.74 g/cm2 Radius: 0.735 g/cm2 LS T-Score: 0.7 increase L Hip T-Score: -2.1 decrease Radius T-Score: -1.6 no previous value Date of FRAX (WHO 10-year fracture risk assessment tool): 05/12/22 FRAX 10-year fracture risk: hip: 1.6% FRAX 10-year fracture risk: major osteoporotic: 10% Daily Calcium diet: 1021 mg Daily Calcium supplementation: 0 mg Daily Vitamin D: 2000 IU Current Multivitamin: No Dental: No planned dental procedures. Last appointment: 12/2021 Link to FRAX Website RAPID 3 [place] Activities of Daily Living No Data Dress self? - Get in and out of bed? - Walk outdoors? - Wash and dry body? - Get in and out of car? - Tobacco Use Never smoked or used smokeless tobacco. Vaping Use Never used Alcohol Use Yes. Comments: very rare TREATMENT HISTORY Osteoporosis - Antiresorptive Treatments Treatment Start Date Stop Date Comment Fosamax 02/2010 Boniva 04/2010 Fosamax 10/2017 Last Ophthalmology Check for Plaquenil (Hydroxychloroquine) Last OCT Macula Exam No resulted procedures found. Last Visual Field Exam No resulted procedures found. RISK FACTORS Osteoporosis FRAX Risk Factors No Fractures No family history of osteoporosis No parent with a hip fracture Not a current smoker Glucocorticoid use (Comment: Daily steroid uses from about [id number]) Previous use No rheumatoid arthritis Secondary osteoporosis Malabsorption No alcohol use more than 3 units per day Osteoporosis Medication Risk Factors Furosemide Proton pump inhibitor Osteoporosis Disease-Specific Risk Factors Weight is not less than 127 lbs Height loss 1 inch normal balance No fall history No history of eating disorders No history of renal calculi Caffeine intake: (Comment: Soda occasionally) Exercise routine: no regular exercise program BONE DENSITY RESULTS Last Bone Density DXA-AXIAL SKELETON Exam End: 03/13/2022 3:21 PM (Final result) Narrative: * * *Final Report* * * DATE OF EXAM: Mar 13 2022 3:21PM [facility] 0804 - DXA - AXIAL SKELETON -NB / PROCEDURE REASON: Asymptomatic postmenopausal status * * * * Physician Interpretation * * * * EXAMINATION: DXA BONE DENSITOMETRY BD DXA - AXIAL SKELETON - CLINICAL HISTORY: DIAGNOSTIC Asymptomatic postmenopausal status . DXA Model: [email or web address] Advance (S/N: [id number]) SITE SCANNED: Lumbar Spine, Left Hip, & Left forearm Date Scanned: 03/13/2022 3:21 PM RESULT: Lumbar spine (L1-L3): 1.248 g/cm2, T-score 0.7, Z-score 2.3 Lumbar spine: 09/02/2017: 1.171 g/cm2 Lumbar spine change: +0.077 g/cm2, +6.6 %, significant increase Left Femoral Neck: 0.740 g/cm2, T-score -2.1, Z-score -0.6 Left Femoral Neck: 09/02/2017: 0.818 g/cm2 Left Femoral Neck Change: -0.078 g/cm2, -9.5 %, significant decrease Left Total Hip: 0.888 g/cm2, T-score -0.9, Z-score 0.3 Left Total Hip: 09/02/2017: 0.888 g/cm2 Left Total Hip change: -0.052 g/cm2, -5.5 %, significant decrease Left Forearm, Distal 1/3 of Radius: 0.735 g/cm2, T-score -1.6, Z-score -0.2 Impression: IMPRESSION: THE LOWEST T-SCORE IS -2.1 IN THE LEFT HIP DIAGNOSIS: Osteopenia Spine: Increased bone mass in spine (likely related to increasing degenerative changes) Hip: Decreased bone mass in hip. FRACTURE RISK: Increased 10-year absolute fracture risk: - major osteoporotic fracture = 16.3 % - hip fracture = 3.0 % RISK FACTORS: This patient is a 67 years Female. MENSTRUAL STATUS: She reports menstrual status of post-menopausal The patient reports the following risk factors associated with low bone mass or increased fracture risk: - past but not current steroid therapy -Lupus The patient reports the following: - calcium intake - vitamin D intake RECOMMENDATIONS: NATIONAL OSTEOPOROSIS FOUNDATION GUIDELINES: Postmenopausal women and men age 50 and older presenting with the following should be treated: -Low bone mass (T-score between -1.0 and -2.5 at the femoral neck or spine) and 10 year probability of hip fracture >3% or a 10 year probability of any major osteoporosis-related fracture > 20% based on the [place] adapted WHO algorithm Based on the patient age, bone density and risk factors: - the patient has had a significant decline in bone mass and careful follow up is recommended. Secondary causes for bone loss should be considered with appropriate lab testing - pending workup, treatment would be indicated, but clinical correlation is required. - Based on FRAX, ten-year fracture risk, treatment is currently recommended. - treatment with an antiresorptive agent should be considered. - the patient should take calcium, the recommended dose is 1408-9658 mg per day along with 800-1000 IU vitamin D (some patients may require higher doses of vitamin D). LIMITATIONS: - Degenerative changes in the spine may artificially increase bone mass and make the reading unreliable FOLLOW-UP: - 2-years cc. Dr. Hardin Rn Documentation: findin Transcribe Date/Time: Mar 13 2022 3:34P Dictated by : NEMESIO REID MD This examination was interpreted and the report reviewed and electronically signed by: NEMESIO REID MD on Mar 16 2022 2:14PM EST BONE DENSITY RESULTS: EXTERNAL WOMEN / ESTROGEN Age of Menarche: 11 years Menstrual history: 12 menses/yr Menopause status: post-menopausal Type of Menopause: natural Age of Menopause: 56 years Previous estrogen use: none Hysterectomy: No Ovaries: intact Breast cancer: No Family history of breast cancer: No OB History No obstetric history on file. RELEVANT PREVIOUS INVESTIGATIONS Calcium Latest Ref Rng & Units 05/16/2021 12/09/2021 03/13/2022 04/22/2022 CA24HR 100.0 - 300.0 mg/24 hr - - - 108.5 CA 8.5 - 10.2 mg/dL 10.3(H) 10.3(H) 11.0(H) - Alkaline Phosphatase Latest Ref Rng & Units 03/25/2021 05/16/2021 12/09/2021 03/13/2022 ALKPHOS 34 - 123 U/L 151(H) 130(H) 120 112 ALKALINE PHOSPHATASE 34 - 123 U/L 151(H) 130(H) 120 112 TSH Latest Ref Rng & Units 07/14/2012 09/11/2020 05/16/2021 TSH 0.270 - 4.200 uU/mL 2.760 5.850(H) 0.328 Vitamin D Latest Ref Rng & Units 06/25/2020 10/04/2020 05/16/2021 04/18/2022 VITAMIN D 25 HYDROXY 31.0 - 80.0 ng/mL 49.7 74.9 62.7 58.2 VIT D1, 25 DIHYDROXY 19.9 - 79.3 pg/mL - - - 35.6 Creatinine Latest Ref Rng & Units 05/16/2021 12/09/2021 03/13/2022 04/22/2022 CREAT 0.58 - 0.96 mg/dL 0.84 1.02(H) 1.01(H) - NTX 5.0 - 65.0 nM BCE/mM Creatinine - - - 109.6(H) Protein, Total Latest Ref Rng & Units 05/16/2021 12/09/2021 03/13/2022 04/18/2022 PTH 15 - 65 pg/mL - - - 83(H) TPROT 6.3 - 8.0 g/dL 6.3 6.1(L) 6.4 - Albumin Latest Ref Rng & Units 03/25/2021 05/16/2021 12/09/2021 03/13/2022 ALB 3.9 - 4.9 g/dL 4.1 4.4 4.0 4.3 PTH Latest Ref Rng & Units 04/18/2022 PTH, INTACT 15 - 65 pg/mL 83(H) Immunoglobulins Latest Ref Rng & Units 02/21/2010 07/14/2012 05/11/2017 09/11/2020 ALPHA 1 GLOBULIN 0.18 - 0.31 gm/dL 0.25(H) 0.22 - - ALPHA 2 GLOBULIN 0.52 - 0.97 gm/dL 1.38(H) 0.77 - - BETA GLOBULIN 0.84 - 1.36 gm/dL 0.81 0.85 - - GAMMA GLOBULIN 0.70 - 1.44 gm/dL 0.69 0.65(L) - - IGA 70 - 400 mg/dL - - 81 63(L) INTERPRETATION (PROT ELECTRO) - No definitive M-protein is identified on protein electrophoresis. Hypoalbuminemia is present. Elevation of acute phase reactants is present. Electrophoretic pattern is consistent with acute or subacute inflammation or infection. No definitive M protein is identified on protein electrophoresis. - - Hepatitis Screen Latest Ref Rng & Units 02/21/2010 12/18/2015 06/25/2020 HEPBCOTOL Negative Negative Negative Negative HEPSABQ Negative Negative Negative Negative HEPCABEIA Negative Negative Negative - HBSAG Negative - - Negative HBSAGR Negative Negative Negative - TPMT amd G6PD Latest Ref Rng & Units 06/25/2020 TPMT ACTIVITY 24.0 - 44.0 U/mL 29.5 Patient-Entered Data PAIN EVALUATION No data found in the last 1 encounters. PROMIS Assessments PROMIS Assessments 03/06/2022 03/11/2022 05/08/2022 Physical Health Percentile - 2 % 15 % Mental Health Percentile - 9 % 26 % Pain Score - 2 3 Pain Interference Percentile 10 % - 12 % Fatigue Percentile 18 % - 8 % Physical Function Percentile 5 % - 7 % 3 [place] Activities of Daily Living No Data Dress self? - Get in and out of bed? - Walk outdoors? - Wash and dry body? - Get in and out of car? - RAPID 3 Disease Activity Weighed Score Levels: 0 - 1: Near Remission 1.3 - 2.0: Low Severity 2.3 - 4.0: Moderate Severity 4.3 - 10.0: High Severity RAPID-3 Weighed Score 12/14/2018 08/24/2019 10/21/2019 RAPID 3 Weighed Score 4.9 4.9 4.7 PHQ-9 0 - 4: Minimal Depression 5 - 9: Mild Depression 10 - 14: Moderate Depression 15 - 19: Moderately Severe Depression 20 - 27: Severe Depression PHQ-9 12/14/2018 04/02/2020 11/13/2021 PHQ-2 Score 3 2 0 PHQ-9 Score 13 - - Review of Systems Review of Systems CONSTITUTION: Negative for: Fever and Recent weight change HEENT: Negative for: Nosebleeds, Mouth sores, Trouble swallowing and Dry mouth RESPIRATORY: Positive for: Shortness of breath Negative for: Cough and Pain with breathing GASTROINTESTINAL: Positive for: Diarrhea and Heartburn Negative for: Melena and Abdominal pain MUSCULOSKELETAL: Positive for: Arthralgias, Myalgias, Muscle weakness, Joint swelling and Morning Joint Stiffness NEUROLOGICAL: Negative for: Headaches, Numbness and Memory loss SKIN: Negative for: Rash, Skin changes, Hair loss and Nail changes EYES: Negative for: Eye pain, Eye redness, Eye dryness and visual disturbance CARDIOVASCULAR: Negative for: Chest pain and Leg swelling GENITOURINARY: Negative for: Dysuria and Hematuria HEMATOLOGIC/LYMPHATIC: Negative for: Swollen glandsJaw pain: No All other reviewed and negative other than HPI. Past Medical History PAST MEDICAL HISTORY Diagnosis Date Arrhythmia Atrial fibrillation (HCC) on coumadin Herniated intervertebral disk HTN (hypertension) Hyperlipemia Kidney disease MONI (obstructive sleep apnea) no longer using CPAP since 60 lb weight loss Other acute pancreatitis with uninfected necrosis SLE (systemic lupus erythematosus) (HCC) Sleep apnea 07/29/2012 Past Surgical History PAST SURGICAL HISTORY Procedure Laterality Date APPENDECTOMY CARPAL TUNNEL RIGHT WRIST surgical correction COLONOSCOPY 05/10/2019 [facility] COLONOSCOPY GEN ANES 07/23/2020 Dr. Reinoso/Diverticulosis/Hemorrhoids/ Ulcerative Colitis/Rpt in 2 yrs. EGD EUS 01/11/2020 [facility] Gastro LASIK Right prior to 1999 MRI PANC/JEANIE WO/W IVCON 12/20/2019 OVARIAN CYSTECTOMY PAST SURGICAL HISTORY OF 07/2013 bilateral foot procedure, Sherry PAST SURGICAL HISTORY OF Ablation X2 TONSILLECTOMY HX Family History FAMILY HISTORY Problem Relation Age of Onset Alzheimer's Disease Father Hypertension Father Cataract Mother Hypertension Mother Colon Cancer Mother Cataract Sister Hypertension Sister Colon Cancer Paternal Uncle Social History Social History Tobacco Use Smoking status: Never Smokeless tobacco: Never Vaping Use Vaping Use: Never used Substance Use Topics Alcohol use: Yes Comment: very rare Drug use: No Current Medications Present Osteoporosis Medications: Current Antiresorptive Medications Bone Resorption Inhibitors - Bisphosphonates Start End alendronate (FOSAMAX) 70 mg tablet 05/12/2022 11/08/2022 Sig - Route: Take 1 tablet by mouth one time a week. In the morning with a full glass of water, on an empty stomach. Do not take anything else by mouth or lie down for the next 30 minutes. - ORAL Current Calcium, Multivitamin, and Vitamin D Use on File Vitamins - D Derivatives Start End Cholecalciferol, Vitamin D3, 2,000 unit cap Sig - Route: Take by mouth once daily. - ORAL Class: Historical Med Current Outpatient Medications Medication Sig alendronate (FOSAMAX) 70 mg tablet Take 1 tablet by mouth one time a week. In the morning with a full glass of water, on an empty stomach. Do not take anything else by mouth or lie down for the next 30 minutes. colestipol (COLESTID) 1 gram tablet Take 2 tablets by mouth twice daily. mycophenolate Mofetil (CELLCEPT) 500 mg tablet take 1 tablet by mouth daily Mesalamine (LIALDA) 1.2 gram EC tablet Take 4 tablets by mouth once daily. celecoxib (CELEBREX) 200 mg capsule Take 200 mg by mouth twice daily. hydrOXYchloroQUINE (PLAQUENIL) 200 mg tablet take 1 tablet by mouth twice a day with food metoprolol succinate ER (TOPROL XL) 50 mg 24 hr tablet 50mg in am and 100mg in pm. pantoprazole DR (PROTONIX) 40 mg tablet Take 1 tablet by mouth twice daily. ferrous sulfate (IRON) 325 mg (65 mg iron) tablet Take 1 tablet by mouth once daily. apixaban (ELIQUIS) 5 mg tab(s) Take 1 tablet by mouth twice daily. cholestyramine-sucrose (QUESTRAN) 4 gram powder Take 4 g by mouth twice daily with meals. (Patient not taking: No sig reported) sucralfate (CARAFATE) 100 mg/mL suspension Take 10 mL by mouth four times daily. (Patient not taking: No sig reported) atorvastatin (LIPITOR) 40 mg tablet Take 1 tablet by mouth once daily. iv contrast (will be provided with radiology test) MRI PANC/JEANIE Inject, intravenously, once for 1 dose. No IV access, insert saline lock prior to the beginning of sedation, infusion, injection of imaging exam. Discontinue saline lock post exam. If Pt. has a central line or IVAD, may access for administration according to line specific nursing protocol. Once exam is complete flush line and de-access according to line specific nursing protocol in the MR contrast administration guidelines link. (Patient not taking: No sig reported) Bifidobacterium infantis (ALIGN ORAL) Take by mouth once daily. (Patient not taking: No sig reported) belimumab (BENLYSTA INTRAVENOUS) Inject intravenously. Patient reports she receives infusion every 3 months (Patient not taking: No sig reported) venlafaxine ER (EFFEXOR XR) 150 mg 24 hr capsule Take 1 capsule by mouth once daily. levothyroxine (SYNTHROID) 75 mcg tablet Take 75 mcg by mouth once daily. furosemide (LASIX) 40 mg tablet Take 40 mg by mouth once daily. busPIRone (BUSPAR) 10 mg tablet Take 10 mg by mouth daily at bedtime. (Patient not taking: No sig reported) spironolactone (ALDACTONE) 50 mg tablet Take 50 mg by mouth once daily. Cholecalciferol, Vitamin D3, 2,000 unit cap Take by mouth once daily. CALCIUM CARBONATE/VITAMIN D3 (CALCIUM 600 + D ORAL) Take by mouth once daily. vitamin b complex(B COMPLEX TAB) one daily multivitamins w-minerals/lut(CENTRUM SILVER TAB) Take one(1) tablet daily. Current Facility-Administered Medications Medication Dose Route Frequency perflutren lipid microspheres 1.3 mL in NaCl (PF) 0.9% 10 mL injection (DEFINITY) INTRAVENOUS DIRECTED PRN sodium chloride 0.9 % (flush) 10 mL (BD POSIFLUSH) 10 mL INTRAVENOUS DIRECTED PRN perflutren lipid microspheres 1.3 mL in NaCl (PF) 0.9% 10 mL injection (DEFINITY) INTRAVENOUS DIRECTED PRN sodium chloride 0.9 % (flush) 10 mL (BD POSIFLUSH) 10 mL INTRAVENOUS DIRECTED PRN Labs Calcium Latest Ref Rng & Units 05/16/2021 12/09/2021 03/13/2022 04/22/2022 CA24HR 100.0 - 300.0 mg/24 hr - - - 108.5 CA 8.5 - 10.2 mg/dL 10.3(H) 10.3(H) 11.0(H) - Alkaline Phosphatase Latest Ref Rng & Units 03/25/2021 05/16/2021 12/09/2021 03/13/2022 ALKPHOS 34 - 123 U/L 151(H) 130(H) 120 112 ALKALINE PHOSPHATASE 34 - 123 U/L 151(H) 130(H) 120 112 TSH Latest Ref Rng & Units 07/14/2012 09/11/2020 05/16/2021 TSH 0.270 - 4.200 uU/mL 2.760 5.850(H) 0.328 Vitamin D Latest Ref Rng & Units 06/25/2020 10/04/2020 05/16/2021 04/18/2022 VITAMIN D 25 HYDROXY 31.0 - 80.0 ng/mL 49.7 74.9 62.7 58.2 VIT D1, 25 DIHYDROXY 19.9 - 79.3 pg/mL - - - 35.6 Creatinine Latest Ref Rng & Units 05/16/2021 12/09/2021 03/13/2022 04/22/2022 CREAT 0.58 - 0.96 mg/dL 0.84 1.02(H) 1.01(H) - NTX 5.0 - 65.0 nM BCE/mM Creatinine - - - 109.6(H) Protein, Total Latest Ref Rng & Units 05/16/2021 12/09/2021 03/13/2022 04/18/2022 PTH 15 - 65 pg/mL - - - 83(H) TPROT 6.3 - 8.0 g/dL 6.3 6.1(L) 6.4 - Albumin Latest Ref Rng & Units 03/25/2021 05/16/2021 12/09/2021 03/13/2022 ALB 3.9 - 4.9 g/dL 4.1 4.4 4.0 4.3 PTH Latest Ref Rng & Units 04/18/2022 PTH, INTACT 15 - 65 pg/mL 83(H) Immunoglobulins Latest Ref Rng & Units 02/21/2010 07/14/2012 05/11/2017 09/11/2020 ALPHA 1 GLOBULIN 0.18 - 0.31 gm/dL 0.25(H) 0.22 - - ALPHA 2 GLOBULIN 0.52 - 0.97 gm/dL 1.38(H) 0.77 - - BETA GLOBULIN 0.84 - 1.36 gm/dL 0.81 0.85 - - GAMMA GLOBULIN 0.70 - 1.44 gm/dL 0.69 0.65(L) - - IGA 70 - 400 mg/dL - - 81 63(L) INTERPRETATION (PROT ELECTRO) - No definitive M-protein is identified on protein electrophoresis. Hypoalbuminemia is present. Elevation of acute phase reactants is present. Electrophoretic pattern is consistent with acute or subacute inflammation or infection. No definitive M protein is identified on protein electrophoresis. - - Hepatitis Screen Latest Ref Rng & Units 02/21/2010 12/18/2015 06/25/2020 HEPBCOTOL Negative Negative Negative Negative HEPSABQ Negative Negative Negative Negative HEPCABEIA Negative Negative Negative - HBSAG Negative - - Negative HBSAGR Negative Negative Negative - TPMT amd G6PD Latest Ref Rng & Units 06/25/2020 TPMT ACTIVITY 24.0 - 44.0 U/mL 29.5 Imaging Last XR Lumbar Spine - Impression Only No resulted procedures found. Last XR Thoracic Spine - Impression Only No resulted procedures found. Last CT Lumbar Spine - Impression Only No resulted procedures found. Last CT Thoracic Spine - Impression Only No resulted procedures found. Last MRI Lumbar Spine - Impression Only No resulted procedures found. Last MRI Thoracic Spine - Impression Only No resulted procedures found. Health Maintenance ANNUAL PCP TEAM CHRONIC DISEASE VISIT Never done DTAP,TDAP,TD(1 - Tdap) Never done MAMMOGRAM Never done PNEUMOCOCCAL: 65+(4 - PPSV23 or PCV20) due on 05/27/2021 ADVANCE DIRECTIVE DISCUSSION Never done COVID-19 VACCINE(3 - Booster for Iris series) due on 09/17/2021 INFLUENZA(1) due on 04/17/2022 COLORECTAL CANCER SCREENING due on 09/12/2022 DEPRESSION SCREENING due on 11/13/2022 BP CONTROLLED (<130/80) due on 04/18/2023 DIABETES SCREEN due on 03/13/2025 LIPID SCREEN due on 06/25/2025 BONE DENSITY Completed HEPATITIS C SCREENING Completed SHINGRIX VACCINE Completed Physical Exam Virtual Visit: Patient appeared well. A&Ox3. Impression & Plan The patient has: osteopenia No history of fractures Most Recent BMD Date: 03/13/22 LS: 1.28 g/cm2 Hip - Left: 0.74 g/cm2 Radius: 0.735 g/cm2 LS T-Score: 0.7 increase L Hip T-Score: -2.1 decrease Radius T-Score: -1.6 no previous value Jesus Wolf is a 67 year old female with history of SLE presenting for an osteopenia evaluation. She has previously been treated with Fosamax from 02/2010-04/2010 & 10/2017-10/2019 and Boniva from 04/2010-06/2012. Has been on a drug holiday since 10/2019. Calcium intake is likely adequate with diet alone. Serum Calcium has been consistently elevated for a year. PTH is 83. 24hr urine calcium is normal. Recommend further evaluation with endocrinology. NTX was elevated. Recommend restarting Fosamax. Discussed 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, risk of ONJ and atypical femur fractures with prolonged use, GI upset with oral formulations. Patient is in agreement. Started physical therapy for balance training and fall prevention. Osteoporosis FRAX Risk Factors No Fractures No family history of osteoporosis No parent with a hip fracture Not a current smoker Glucocorticoid use (Comment: Daily steroid uses from about [id number]) Previous use No rheumatoid arthritis Secondary osteoporosis Malabsorption No alcohol use more than 3 units per day FRAX (WHO 10 Year Fracture Risk) Date of FRAX assessment: 05/12/22 Hip: 1.6% Major Osteoporotic: 10% Diagnoses: (M85.80) Osteopenia, unspecified location (primary encounter diagnosis) (R26.89) Balance problem (E83.52) Hypercalcemia (E21.3) Hyperparathyroid (HCC) Plan: Begin Fosamax weekly - instructions reviewed verbally and provided written instruction on AVS. Continue dietary calcium intake. Continue vitamin D. Weight bearing exercise as tolerated recommended. Fall precautions discussed. Continue fall prevention with physical therapy. Repeat bmd on same machine as prior around 02/2024. Consult to endocrinology to evaluate hypercalcemia and hyperparathyroidism. Continued f/u with PCP for routine health maintenance advised. Orders this visit: [facility] on 05/12/22 CONSULT TO ENDOCRINOLOGY alendronate (FOSAMAX) 70 mg tablet Return in about 6 months (around 11/09/2022). Medical Decision Making: Problems: Low: Stable chronic illness Data: Unique test result(s) reviewed: 3+ Risk: Moderate: Drug management Medical Decision Making Level: 4 - Moderate ____ Julia Peña PA-C Date: May 12, 2022 documented in this encounter [facility] 05-06-2022 Miscellaneous Notes MC message sent to patient r/t below request. documented in this encounter [facility] 05-06-2022 Miscellaneous Notes Patient phones requesting refills as follows: Last office visit: 04/03/2021 Next office visit: Visit date not found Requested Prescriptions Pending Prescriptions Disp Refills colestipol (COLESTID) 1 gram tablet 120 tablet 3 Sig: Take 2 tablets by mouth twice daily. Please review and advise. Barbie Gerard LPN Please file if appropriate documented in this encounter [facility] 04-18-2022 Instructions Julia Peña PA-C - 04/18/2022 4:36 PM EDT PATIENT INSTRUCTIONS FOR 24 HOUR URINE COLLECTION: 1. On the first morning, empty your bladder in the toilet. 2. Then start to collect all urine, all day and night (in a large container you need to get from the lab.) (please keep the urine cool or in a refrigerator) 3. When you get up the second morning the first urine goes into the big container, that is the end of the 24 hour urine. 4. Then, collect the next urine after you have finished the 24 hour collection (before 10 am and before breakfast) in a small container (also provided by the lab or by me) - take the large container with the 24 hour urine and the small container to the lab. documented in this encounter [facility] 04-18-2022 History of Present illness Narrative Images from the original note were not included. Osteoporosis and Metabolic Bone Disease Date of Service: 04/18/2022 Patient: Jesus Wolf Medical Record: [id number] Primary Care Physician: Wojciech Treviño MD, DO Last Rheumatology visit: 04/18/2022 (with Julia Peña) History of Present Illness Jesus Wolf is a 67 year old White female who presents on 04/18/2022 for an in-person visit for evaluation of Osteopenia. Osteoporosis History No history of fractures Most Recent BMD Date: 03/13/22 LS: 1.28 g/cm2 Hip - Left: 0.74 g/cm2 Radius: 0.735 g/cm2 LS T-Score: 0.7 increase L Hip T-Score: -2.1 decrease Radius T-Score: -1.6 no previous value Daily Calcium diet: 1021 mg Daily Calcium supplementation: 0 mg Daily Vitamin D: 2000 IU Current Multivitamin: No Dental: No planned dental procedures. Last appointment: 12/2021 Link to FRAX Website RAPID 3 [place] Activities of Daily Living No Data Dress self? - Get in and out of bed? - Walk outdoors? - Wash and dry body? - Get in and out of car? - Tobacco Use Never smoked or used smokeless tobacco. Vaping Use Never used Alcohol Use Yes. Comments: very rare TREATMENT HISTORY Osteoporosis - Antiresorptive Treatments Treatment Start Date Stop Date Comment Fosamax 02/2010 Boniva 04/2010 Fosamax 10/2017 Last Ophthalmology Check for Plaquenil (Hydroxychloroquine) Last OCT Macula Exam No resulted procedures found. Last Visual Field Exam No resulted procedures found. History of Radiation: No RISK FACTORS Osteoporosis FRAX Risk Factors No Fractures No family history of osteoporosis No parent with a hip fracture Not a current smoker Glucocorticoid use (Comment: Daily steroid uses from about 5203-7931) Previous use No rheumatoid arthritis Secondary osteoporosis Malabsorption No alcohol use more than 3 units per day Osteoporosis Medication Risk Factors Furosemide Proton pump inhibitor Osteoporosis Disease-Specific Risk Factors Weight is not less than 127 lbs Height loss 1 inch normal balance No fall history No history of eating disorders No history of renal calculi Caffeine intake: (Comment: Soda occasionally) Exercise routine: no regular exercise program BONE DENSITY RESULTS Last Bone Density DXA-AXIAL SKELETON Exam End: 03/13/2022 3:21 PM (Final result) Narrative: * * *Final Report* * * DATE OF EXAM: Mar 13 2022 3:21PM B 0804 - BD DXA - AXIAL SKELETON -NB / PROCEDURE REASON: Asymptomatic postmenopausal status * * * * Physician Interpretation * * * * EXAMINATION: DXA BONE DENSITOMETRY BD DXA - AXIAL SKELETON -NB CLINICAL HISTORY: DIAGNOSTIC Asymptomatic postmenopausal status . DXA Model: [employer] (S/N: [id number]) SITE SCANNED: Lumbar Spine, Left Hip, & Left forearm Date Scanned: 03/13/2022 3:21 PM RESULT: Lumbar spine (L1-L3): 1.248 g/cm2, T-score 0.7, Z-score 2.3 Lumbar spine: 09/02/2017: 1.171 g/cm2 Lumbar spine change: +0.077 g/cm2, +6.6 %, significant increase Left Femoral Neck: 0.740 g/cm2, T-score -2.1, Z-score -0.6 Left Femoral Neck: 09/02/2017: 0.818 g/cm2 Left Femoral Neck Change: -0.078 g/cm2, -9.5 %, significant decrease Left Total Hip: 0.888 g/cm2, T-score -0.9, Z-score 0.3 Left Total Hip: 09/02/2017: 0.888 g/cm2 Left Total Hip change: -0.052 g/cm2, -5.5 %, significant decrease Left Forearm, Distal 1/3 of Radius: 0.735 g/cm2, T-score -1.6, Z-score -0.2 Impression: IMPRESSION: THE LOWEST T-SCORE IS -2.1 IN THE LEFT HIP DIAGNOSIS: Osteopenia Spine: Increased bone mass in spine (likely related to increasing degenerative changes) Hip: Decreased bone mass in hip. FRACTURE RISK: Increased 10-year absolute fracture risk: - major osteoporotic fracture = 16.3 % - hip fracture = 3.0 % RISK FACTORS: This patient is a 67 years Female. MENSTRUAL STATUS: She reports menstrual status of post-menopausal The patient reports the following risk factors associated with low bone mass or increased fracture risk: - past but not current steroid therapy -Lupus The patient reports the following: - calcium intake - vitamin D intake RECOMMENDATIONS: NATIONAL OSTEOPOROSIS F[employer]ATION GUIDELINES: Postmenopausal women and men age 50 and older presenting with the following should be treated: -Low bone mass (T-score between -1.0 and -2.5 at the femoral neck or spine) and 10 year probability of hip fracture >3% or a 10 year probability of any major osteoporosis-related fracture > 20% based on the [place] adapted WHO algorithm Based on the patient age, bone density and risk factors: - the patient has had a significant decline in bone mass and careful follow up is recommended. Secondary causes for bone loss should be considered with appropriate lab testing - pending workup, treatment would be indicated, but clinical correlation is required. - Based on FRAX, ten-year fracture risk, treatment is currently recommended. - treatment with an antiresorptive agent should be considered. - the patient should take calcium, the recommended dose is 9926-9936 mg per day along with 800-1000 IU vitamin D (some patients may require higher doses of vitamin D). LIMITATIONS: - Degenerative changes in the spine may artificially increase bone mass and make the reading unreliable FOLLOW-UP: - 2-years cc. Dr. Davison-Nixon Rn Documentation: findin Transcribe Date/Time: Mar 13 2022 3:34P Dictated by : NEMESIO REID MD This examination was interpreted and the report reviewed and electronically signed by: NEMESIO REID MD on Mar 16 2022 2:14PM EST WOMEN / ESTROGEN Age of Menarche: 11 years Menstrual history: 12 menses/yr Menopause status: post-menopausal Type of Menopause: natural Age of Menopause: 56 years Previous estrogen use: none Hysterectomy: No Ovaries: intact Breast cancer: No Family history of breast cancer: No OB History No obstetric history on file. RELEVANT PREVIOUS INVESTIGATIONS Calcium Latest Ref Rng & Units 03/25/2021 05/16/2021 12/09/2021 03/13/2022 CA 8.5 - 10.2 mg/dL 10.5(H) 10.3(H) 10.3(H) 11.0(H) Alkaline Phosphatase Latest Ref Rng & Units 03/25/2021 05/16/2021 12/09/2021 03/13/2022 ALKPHOS 34 - 123 U/L 151(H) 130(H) 120 112 ALKALINE PHOSPHATASE 34 - 123 U/L 151(H) 130(H) 120 112 TSH Latest Ref Rng & Units 07/14/2012 09/11/2020 05/16/2021 TSH 0.270 - 4.200 uU/mL 2.760 5.850(H) 0.328 Vitamin D Latest Ref Rng & Units 06/25/2020 10/04/2020 05/16/2021 04/18/2022 VITAMIN D 25 HYDROXY 31.0 - 80.0 ng/mL 49.7 74.9 62.7 58.2 VIT D1, 25 DIHYDROXY 19.9 - 79.3 pg/mL - - - 35.6 Creatinine Latest Ref Rng & Units 03/25/2021 05/16/2021 12/09/2021 03/13/2022 CREAT 0.58 - 0.96 mg/dL 0.88 0.84 1.02(H) 1.01(H) Protein, Total Latest Ref Rng & Units 05/16/2021 12/09/2021 03/13/2022 04/18/2022 PTH 15 - 65 pg/mL - - - 83(H) TPROT 6.3 - 8.0 g/dL 6.3 6.1(L) 6.4 - Albumin Latest Ref Rng & Units 03/25/2021 05/16/2021 12/09/2021 03/13/2022 ALB 3.9 - 4.9 g/dL 4.1 4.4 4.0 4.3 PTH Latest Ref Rng & Units 04/18/2022 PTH, INTACT 15 - 65 pg/mL 83(H) Immunoglobulins Latest Ref Rng & Units 02/21/2010 07/14/2012 05/11/2017 09/11/2020 ALPHA 1 GLOBULIN 0.18 - 0.31 gm/dL 0.25(H) 0.22 - - ALPHA 2 GLOBULIN 0.52 - 0.97 gm/dL 1.38(H) 0.77 - - BETA GLOBULIN 0.84 - 1.36 gm/dL 0.81 0.85 - - GAMMA GLOBULIN 0.70 - 1.44 gm/dL 0.69 0.65(L) - - IGA 70 - 400 mg/dL - - 81 63(L) INTERPRETATION (PROT ELECTRO) - No definitive M-protein is identified on protein electrophoresis. Hypoalbuminemia is present. Elevation of acute phase reactants is present. Electrophoretic pattern is consistent with acute or subacute inflammation or infection. No definitive M protein is identified on protein electrophoresis. - - Hepatitis Screen Latest Ref Rng & Units 02/21/2010 12/18/2015 06/25/2020 HEPBCOTOL Negative Negative Negative Negative HEPSABQ Negative Negative Negative Negative HEPCABEIA Negative Negative Negative - HBSAG Negative - - Negative HBSAGR Negative Negative Negative - TPMT amd G6PD Latest Ref Rng & Units 06/25/2020 TPMT ACTIVITY 24.0 - 44.0 U/mL 29.5 Patient-Entered Data PAIN EVALUATION 04/18/2022 1552 Pain Level: 4 Duration Units: Unknown Frequency: Continuous PROMIS Assessments PROMIS Assessments 11/13/2021 03/06/2022 03/11/2022 Physical Health Percentile 7 % - 2 % Mental Health Percentile 26 % - 9 % Pain Score 3 - 2 Pain Interference Percentile - 10 % - Fatigue Percentile - 18 % - Physical Function Percentile - 5 % - RAPID 3 [place] Activities of Daily Living No Data Dress self? - Get in and out of bed? - Walk outdoors? - Wash and dry body? - Get in and out of car? - RAPID 3 Disease Activity Weighed Score Levels: 0 - 1: Near Remission 1.3 - 2.0: Low Severity 2.3 - 4.0: Moderate Severity 4.3 - 10.0: High Severity RAPID-3 Weighed Score 12/14/2018 08/24/2019 10/21/2019 RAPID 3 Weighed Score 4.9 4.9 4.7 PHQ-9 0 - 4: Minimal Depression 5 - 9: Mild Depression 10 - 14: Moderate Depression 15 - 19: Moderately Severe Depression 20 - 27: Severe Depression PHQ-9 12/14/2018 04/02/2020 11/13/2021 PHQ-2 Score 3 2 0 PHQ-9 Score 13 - - Review of Systems Review of Systems CONSTITUTION: Negative for: Fever HEENT: Negative for: Trouble swallowing RESPIRATORY: Negative for: Cough, Shortness of breath and Pain with breathing GASTROINTESTINAL: Negative for: Melena and Heartburn MUSCULOSKELETAL: Positive for: Arthralgias, Myalgias, Muscle weakness and Joint swelling Negative for: Morning Joint Stiffness NEUROLOGICAL: Positive for: Numbness Negative for: Headaches SKIN: Negative for: Rashes, Sun sensitive rashes, Skin color changes, Hair loss, Nail changes EYES: CARDIOVASCULAR: Negative for: Chest pain and Leg swelling GENITOURINARY: Negative for: Hematuria HEMATOLOGIC/LYMPHATIC: Negative for: Swollen glands Jaw pain: No All other reviewed and negative other than HPI. Past Medical History PAST MEDICAL HISTORY Diagnosis Date Arrhythmia Atrial fibrillation (HCC) on coumadin Herniated intervertebral disk HTN (hypertension) Hyperlipemia Kidney disease MONI (obstructive sleep apnea) no longer using CPAP since 60 lb weight loss Other acute pancreatitis with uninfected necrosis SLE (systemic lupus erythematosus) (HCC) Sleep apnea 07/29/2012 Past Surgical History PAST SURGICAL HISTORY Procedure Laterality Date APPENDECTOMY CARPAL TUNNEL RIGHT WRIST surgical correction COLONOSCOPY 05/10/2019 [facility] COLONOSCOPY GEN ANES 07/23/2020 Dr. Reinoso/Diverticulosis/Hemorrhoids/ Ulcerative Colitis/Rpt in 2 yrs. EGD EUS 01/11/2020 [facility] LASIK Right prior to 1999 MRI PANC/JEANIE WO/W IVCON 12/20/2019 OVARIAN CYSTECTOMY PAST SURGICAL HISTORY OF 07/2013 bilateral foot procedure, [facility] PAST SURGICAL HISTORY OF 2018,2019 Ablation X2 TONSILLECTOMY HX Family History FAMILY HISTORY Problem Relation Age of Onset Alzheimer's Disease Father Hypertension Father Cataract Mother Hypertension Mother Colon Cancer Mother Cataract Sister Hypertension Sister Colon Cancer Paternal Uncle Social History Social History Tobacco Use Smoking status: Never Smokeless tobacco: Never Vaping Use Vaping Use: Never used Substance Use Topics Alcohol use: Yes Comment: very rare Drug use: No Current Medications Present Osteoporosis Medications: Current Calcium, Multivitamin, and Vitamin D Use on File Vitamins - D Derivatives Start End Cholecalciferol, Vitamin D3, 2,000 unit cap Sig - Route: Take by mouth once daily. - ORAL Class: Historical Med Current Outpatient Medications Medication Sig mycophenolate Mofetil (CELLCEPT) 500 mg tablet take 1 tablet by mouth daily Mesalamine (LIALDA) 1.2 gram EC tablet Take 4 tablets by mouth once daily. celecoxib (CELEBREX) 200 mg capsule Take 200 mg by mouth twice daily. hydrOXYchloroQUINE (PLAQUENIL) 200 mg tablet take 1 tablet by mouth twice a day with food metoprolol succinate ER (TOPROL XL) 50 mg 24 hr tablet 50mg in am and 100mg in pm. pantoprazole DR (PROTONIX) 40 mg tablet Take 1 tablet by mouth twice daily. colestipol (COLESTID) 1 gram tablet Take 2 tablets by mouth twice daily. ferrous sulfate (IRON) 325 mg (65 mg iron) tablet Take 1 tablet by mouth once daily. apixaban (ELIQUIS) 5 mg tab(s) Take 1 tablet by mouth twice daily. atorvastatin (LIPITOR) 40 mg tablet Take 1 tablet by mouth once daily. venlafaxine ER (EFFEXOR XR) 150 mg 24 hr capsule Take 1 capsule by mouth once daily. levothyroxine (SYNTHROID) 75 mcg tablet Take 75 mcg by mouth once daily. furosemide (LASIX) 40 mg tablet Take 40 mg by mouth once daily. spironolactone (ALDACTONE) 50 mg tablet Take 50 mg by mouth once daily. Cholecalciferol, Vitamin D3, 2,000 unit cap Take by mouth once daily. CALCIUM CARBONATE/VITAMIN D3 (CALCIUM 600 + D ORAL) Take by mouth once daily. vitamin b complex(B COMPLEX TAB) one daily multivitamins w-minerals/lut(CENTRUM SILVER TAB) Take one(1) tablet daily. cholestyramine-sucrose (QUESTRAN) 4 gram powder Take 4 g by mouth twice daily with meals. (Patient not taking: No sig reported) sucralfate (CARAFATE) 100 mg/mL suspension Take 10 mL by mouth four times daily. (Patient not taking: No sig reported) iv contrast (will be provided with radiology test) MRI PANC/JEANIE Inject, intravenously, once for 1 dose. No IV access, insert saline lock prior to the beginning of sedation, infusion, injection of imaging exam. Discontinue saline lock post exam. If Pt. has a central line or IVAD, may access for administration according to line specific nursing protocol. Once exam is complete flush line and de-access according to line specific nursing protocol in the MR contrast administration guidelines link. (Patient not taking: No sig reported) Bifidobacterium infantis (ALIGN ORAL) Take by mouth once daily. (Patient not taking: No sig reported) belimumab (BENLYSTA INTRAVENOUS) Inject intravenously. Patient reports she receives infusion every 3 months (Patient not taking: No sig reported) busPIRone (BUSPAR) 10 mg tablet Take 10 mg by mouth daily at bedtime. (Patient not taking: No sig reported) Current Facility-Administered Medications Medication Dose Route Frequency perflutren lipid microspheres 1.3 mL in NaCl (PF) 0.9% 10 mL injection (DEFINITY) INTRAVENOUS DIRECTED PRN sodium chloride 0.9 % (flush) 10 mL (BD POSIFLUSH) 10 mL INTRAVENOUS DIRECTED PRN perflutren lipid microspheres 1.3 mL in NaCl (PF) 0.9% 10 mL injection (DEFINITY) INTRAVENOUS DIRECTED PRN sodium chloride 0.9 % (flush) 10 mL (BD POSIFLUSH) 10 mL INTRAVENOUS DIRECTED PRN Labs Calcium Latest Ref Rng & Units 03/25/2021 05/16/2021 12/09/2021 03/13/2022 CA 8.5 - 10.2 mg/dL 10.5(H) 10.3(H) 10.3(H) 11.0(H) Alkaline Phosphatase Latest Ref Rng & Units 03/25/2021 05/16/2021 12/09/2021 03/13/2022 ALKPHOS 34 - 123 U/L 151(H) 130(H) 120 112 ALKALINE PHOSPHATASE 34 - 123 U/L 151(H) 130(H) 120 112 TSH Latest Ref Rng & Units 07/14/2012 09/11/2020 05/16/2021 TSH 0.270 - 4.200 uU/mL 2.760 5.850(H) 0.328 Vitamin D Latest Ref Rng & Units 06/25/2020 10/04/2020 05/16/2021 04/18/2022 VITAMIN D 25 HYDROXY 31.0 - 80.0 ng/mL 49.7 74.9 62.7 58.2 VIT D1, 25 DIHYDROXY 19.9 - 79.3 pg/mL - - - 35.6 Creatinine Latest Ref Rng & Units 03/25/2021 05/16/2021 12/09/2021 03/13/2022 CREAT 0.58 - 0.96 mg/dL 0.88 0.84 1.02(H) 1.01(H) Protein, Total Latest Ref Rng & Units 05/16/2021 12/09/2021 03/13/2022 04/18/2022 PTH 15 - 65 pg/mL - - - 83(H) TPROT 6.3 - 8.0 g/dL 6.3 6.1(L) 6.4 - Albumin Latest Ref Rng & Units 03/25/2021 05/16/2021 12/09/2021 03/13/2022 ALB 3.9 - 4.9 g/dL 4.1 4.4 4.0 4.3 PTH Latest Ref Rng & Units 04/18/2022 PTH, INTACT 15 - 65 pg/mL 83(H) Immunoglobulins Latest Ref Rng & Units 02/21/2010 07/14/2012 05/11/2017 09/11/2020 ALPHA 1 GLOBULIN 0.18 - 0.31 gm/dL 0.25(H) 0.22 - - ALPHA 2 GLOBULIN 0.52 - 0.97 gm/dL 1.38(H) 0.77 - - BETA GLOBULIN 0.84 - 1.36 gm/dL 0.81 0.85 - - GAMMA GLOBULIN 0.70 - 1.44 gm/dL 0.69 0.65(L) - - IGA 70 - 400 mg/dL - - 81 63(L) INTERPRETATION (PROT ELECTRO) - No definitive M-protein is identified on protein electrophoresis. Hypoalbuminemia is present. Elevation of acute phase reactants is present. Electrophoretic pattern is consistent with acute or subacute inflammation or infection. No definitive M protein is identified on protein electrophoresis. - - Hepatitis Screen Latest Ref Rng & Units 02/21/2010 12/18/2015 06/25/2020 HEPBCOTOL Negative Negative Negative Negative HEPSABQ Negative Negative Negative Negative HEPCABEIA Negative Negative Negative - HBSAG Negative - - Negative HBSAGR Negative Negative Negative - TPMT amd G6PD Latest Ref Rng & Units 06/25/2020 TPMT ACTIVITY 24.0 - 44.0 U/mL 29.5 Physical Exam BP 122/67 Pulse 73 Temp 36.3 C (97.3 F) (Temporal) Ht 170.2 cm (5' 7 ) Wt 114.7 kg (252 lb 14.4 oz) BMI 39.61 kg/m EYES: Sclera normal. DENTAL: Normal HEART: RRR with normal S1 and S2 ,no murmurs, no gallops, no JVD appreciated. LUNGS: Clear to auscultation. NEURO: Awake, alert and oriented x 3, 5+/5+ strength, normal gait and no involuntary motions. SKIN: Skin color, texture, turgor normal. No rashes or lesions. Examination of Back: Profile -Dorsal kyphosis TS: No -Movement: Normal upon exam Back Pain: no Balance: -Romberg test: Normal -Single leg balance: Abnormal Impression & Plan The patient has: osteopenia No history of fractures Most Recent BMD Date: 03/13/22 LS: 1.28 g/cm2 Hip - Left: 0.74 g/cm2 Radius: 0.735 g/cm2 LS T-Score: 0.7 increase L Hip T-Score: -2.1 decrease Radius T-Score: -1.6 no previous value Jesus Wolf is a 67 year old female with history of SLE presenting for an osteopenia evaluation. She has previously been treated with Fosamax from 02/2010-04/2010 & 10/2017-10/2019 and Boniva from 04/2010-06/2012. Has been on a drug holiday since 10/2019. Calcium intake is likely adequate with diet alone. Serum Calcium has been consistently elevated for a year. Poor balance on exam. Osteoporosis FRAX Risk Factors No Fractures No family history of osteoporosis No parent with a hip fracture Not a current smoker Glucocorticoid use (Comment: Daily steroid uses from about [id number]) Previous use No rheumatoid arthritis Secondary osteoporosis Malabsorption No alcohol use more than 3 units per day Diagnoses: (M85.80) Osteopenia, unspecified location (primary encounter diagnosis) (E55.9) Vitamin D deficiency disease (E83.52) Serum calcium elevated (R26.89) Balance problem Plan: Work up secondary causes of bone loss and hypercalcemia. Virtual follow up to discuss results and treatment plan in about 4 weeks. Calcium 1200 to 1500 mg daily recommended- if cannot achieve this through diet, then supplement recommended in divided doses. Continue vitamin D. Weight bearing exercise as tolerated recommended. Fall precautions discussed. Referral letter for outside physical therapy for balance training/fall prevention. Repeat bmd on same machine as prior around 02/2024. Continued f/u with PCP for routine health maintenance advised. Orders this visit: Office Visit on 04/18/22 VITAMIN D 25 HYDROXY VITAMIN D1 25-DIHYDR PTH INTACT BLD CREATININE 24 HR UR CALCIUM 24 HR URINE CROSS-LINK N-TELOPEP Return in about 4 weeks (around 05/16/2022). Medical Decision Making: Problems: Moderate: 1+ chronic illnesses with change Data: Unique test result(s) reviewed: 2 Unique test(s) ordered: 3+ Risk: Moderate: Moderate risk from testing/treatment Medical Decision Making Level: 4 - Moderate ____ Julia Peña PA-C Date: April 18, 2022 documented in this encounter [facility] 03-13-2022 History of Present illness Narrative Patient has been identified by name and date of . Scanner [employer] [id number] Sites Scanned: Lumbar spine, Left hip, left forearm Jayne Blackwood RT(R) Radiology Service Progress Note PATIENT NAME: Jesus Wolf DATE OF SERVICE: March 13, 2022 TIME: 2:59 PM PATIENT IDENTITY VERIFICATION COMPLETED USING TWO (2) IDENTIFIERS: Name and Date of confirmed by patient verbally. FALL SCREENING: Has the patient had 2 falls in the last year or 1 fall with injury or currently using an Ambulatory Assistive Device (Walker, Cane, Wheelchair, Crutches, etc.)? No PATIENT GENDER DATA: Female. status: : No status: NO. PATIENT RELEVANT IMPLANT DATA REVIEWED: Not Applicable RADIOLOGY DEPARTMENT: Bone Density PERIPHERAL IV DATA: Not applicable SIGNED BY: RT Evon(R) March 13, 2022 2:59 PM documented in this encounter [facility] 03-13-2022 History of Present illness Narrative Patient arrives ambulatory for receipt of COVID-19 Monoclonal Antibodies for pre-exposure prophylaxis. Patient is identified by name and date of Previous [facility] Administrations (last [id number] hours) Showing orders from other encounters Date/Time Action Medication Dose 03/13/22 1258 Given cilgavimab 300 mg intramuscular injection (EVUSHELD) 300 mg 03/13/22 1258 Given tixagevimab 300 mg intramuscular injection (EVUSHELD) 300 mg Patient is receiving Evusheld (tixagevimab 300 mg/cilgevimab 300 mg) IM COVID 19 Result AUTO PARKER (no units) Date Value 03/13/2022 Negative Confirmed negative COVID test prior to injection: Yes Autopopulate last platelet count: Platelet Count Date Value Ref Range Status 03/13/2022 254 150 - 400 k/uL Final If platelets < 20 - do not administer: review with provider If platelets 20-50: apply pressure for 5 minutes after the IM injection If patients > 50: no limitations Patient confirms she received Medication information Fact Sheet and has reviewed prior to treatment. Denies any concerns regarding treatment today. See Doc flow sheet Ambulatory injection and MAR for further documentation Patient is declines AVS and will see information in My Chart. Patient denies any other questions or concerns prior to discharge. Patient is discharged home ambulatory. Patient was given the Evusheld injection, while receiving her infusion. No immediate complications. Patent will continue to be monitored by the infusion nurse. See doc flowsheet for vital signs. Vitals are stable. documented in this encounter [facility] 03-13-2022 History of Present illness Narrative Infusion Charting Note: Pt ID by name and birthdate. yes Since the last infusion has patient: Had any major changes to health since last infusion? no Been to the emergency room? no Been Hospitalized? no Had any infections? no Taken any antibiotics? no Had surgery or has upcoming surgery? no In the past 7 days has patient had: Fever/chills/night sweats? no New cough or cold symptoms (including sore throat)? no Nausea, vomiting, diarrhea? no Unusual swelling in ankles or feet? no Burning/blood with urination or had urinary frequency? no New weakness, numbness, stumbling, or falls? no A new rash or open sores? no Medication allergy reviewed and verified: yes Patient here for Benlysta, infusion runs over 2 hours per usual protocol. Premedications include 60mg IV solumedrol, 1000mg acetaminophen PO. Patient had an OV with Dr. Laney Alicea prior to infusion. 1300: Patient received Evusheld injection. 1450: Patient left infusion room in stable condition. Patient going to get a bone density scan next. Keira Frias RN documented in this encounter [facility] 03-13-2022 Instructions Evelin Alicea MD - 03/13/2022 11:25 AM EDT BONE MINERAL DENSITY PATIENT INSTRUCTIONS ======= Bone mineral density testing measures the amount of calcium in certain parts of your bones. This information determines how strong your bones are. The test is used to detect osteoporosis, a disease in which the bone's mineral content and density are low, increasing a person's risk of fractures. The lumbar spine (lower back) and the hip are the skeletal sites usually examined. For the test, remember that: 1. You cannot take this test if you are . 2. Eat a normal diet on the day of the test. 3. Take your medications as you normally would. 4. DO NOT take calcium supplements (such as Tums) for 24 hours before the test. 5. On the day of the test, leave valuables (jewelry or credit cards) at home. 6. The test should be performed prior to oral, rectal or IV contrast studies, or at least 7 days after any of these studies. For the test, you may be asked to wear a hospital gown. You will lie on your back, on a padded table, in a comfortable position. Generally, you can resume your usual activities immediately. documented in this encounter [facility] 03-13-2022 History of Present illness Narrative CLINICAL SHEET Jesus Wolf is a 67 year old female here for follow up for diagnosis of SLE and membraneous nephropathy. Failed cyclosporine. Started MMF 06/26, Benlysta 09/28 every month then starting in February 2012 started every two months Jun 2012. Aug 2013 Benlysta moved to every 3 months. Also on Plaquenil and cellcept 1g BID. August 2018 cellcept was decreased to 1500 mg daily because of recurrent URI . March 2020 admitted with CHF A. fib on Eliquis DX 1998 ulcerative colitis on mesalamine therapy Has pancreatitis and IPMN. Takes prednisone before benlysta because of burning eye symptoms with Benlysta , no anaphylaxis Had GI evaluation and general surgery and thought the pancreatitis thought to be to gall bladder stone Had a hip replacement right hip in December 2020 Interval history: A lot of fatigue Sleeps well Has a lot of tender spots Tapering cellcept on 1 gram daily Does not use the CPAP Had eye exam in 2021 and was normal Had recent UTI was treated with antibiotics then developed C. difficile feels better now. Current Outpatient Medications Medication Sig celecoxib (CELEBREX) 200 mg capsule Take 200 mg by mouth twice daily. mycophenolate Mofetil (CELLCEPT) 500 mg tablet take 1 tablet by mouth daily hydrOXYchloroQUINE (PLAQUENIL) 200 mg tablet take 1 tablet by mouth twice a day with food metoprolol succinate ER (TOPROL XL) 50 mg 24 hr tablet 50mg in am and 100mg in pm. pantoprazole DR (PROTONIX) 40 mg tablet Take 1 tablet by mouth twice daily. colestipol (COLESTID) 1 gram tablet Take 2 tablets by mouth twice daily. ferrous sulfate (IRON) 325 mg (65 mg iron) tablet Take 1 tablet by mouth once daily. apixaban (ELIQUIS) 5 mg tab(s) Take 1 tablet by mouth twice daily. Mesalamine (LIALDA) 1.2 gram EC tablet Take 4 tablets by mouth once daily. atorvastatin (LIPITOR) 40 mg tablet Take 1 tablet by mouth once daily. venlafaxine ER (EFFEXOR XR) 150 mg 24 hr capsule Take 1 capsule by mouth once daily. levothyroxine (SYNTHROID) 75 mcg tablet Take 75 mcg by mouth once daily. furosemide (LASIX) 40 mg tablet Take 40 mg by mouth once daily. spironolactone (ALDACTONE) 50 mg tablet Take 50 mg by mouth once daily. Cholecalciferol, Vitamin D3, 2,000 unit cap Take by mouth once daily. CALCIUM CARBONATE/VITAMIN D3 (CALCIUM 600 + D ORAL) Take by mouth once daily. vitamin b complex(B COMPLEX TAB) one daily multivitamins w-minerals/lut(CENTRUM SILVER TAB) Take one(1) tablet daily. cholestyramine-sucrose (QUESTRAN) 4 gram powder Take 4 g by mouth twice daily with meals. (Patient not taking: Reported on 03/13/2022 ) sucralfate (CARAFATE) 100 mg/mL suspension Take 10 mL by mouth four times daily. (Patient not taking: Reported on 03/13/2022 ) iv contrast (will be provided with radiology test) MRI PANC/JEANIE Inject, intravenously, once for 1 dose. No IV access, insert saline lock prior to the beginning of sedation, infusion, injection of imaging exam. Discontinue saline lock post exam. If Pt. has a central line or IVAD, may access for administration according to line specific nursing protocol. Once exam is complete flush line and de-access according to line specific nursing protocol in the MR contrast administration guidelines link. (Patient not taking: Reported on 03/13/2022 ) Bifidobacterium infantis (ALIGN ORAL) Take by mouth once daily. (Patient not taking: Reported on 03/13/2022 ) belimumab (BENLYSTA INTRAVENOUS) Inject intravenously. Patient reports she receives infusion every 3 months (Patient not taking: Reported on 03/13/2022 ) busPIRone (BUSPAR) 10 mg tablet Take 10 mg by mouth daily at bedtime. (Patient not taking: Reported on 03/13/2022 ) Current Facility-Administered Medications Medication Dose Route Frequency acetaminophen 650 mg tab(s) (TYLENOL) 650 mg ORAL PRN cilgavimab 300 mg intramuscular injection (EVUSHELD) 300 mg INTRAMUSCULAR ONCE (AMB - Up to 30 Days) diphenhydrAMINE 50 mg (BENADRYL) 50 mg ORAL PRN diphenhydrAMINE 50 mg injection (BENADRYL) 50 mg INTRAMUSCULAR PRN EPINEPHrine 1 mg/mL (1 mL) 0.3 mg injection 0.3 mg INTRAMUSCULAR PRN hydrocortisone sodium succinate (PF) 100 mg injection (Solu-CORTEF) 100 mg INTRAMUSCULAR PRN ondansetron (PF) 4 mg injection (ZOFRAN) 4 mg INTRAMUSCULAR PRN ondansetron orally disintegrating 4 mg tab(s) (ZOFRAN ODT) 4 mg ORAL PRN prochlorperazine 5 mg injection (COMPAZINE) 5 mg INTRAMUSCULAR PRN tixagevimab 300 mg intramuscular injection (EVUSHELD) 300 mg INTRAMUSCULAR ONCE (AMB - Up to 30 Days) perflutren lipid microspheres 1.3 mL in NaCl (PF) 0.9% 10 mL injection (DEFINITY) INTRAVENOUS DIRECTED PRN sodium chloride 0.9 % (flush) 10 mL (BD POSIFLUSH) 10 mL INTRAVENOUS DIRECTED PRN Facility-Administered Medications Ordered in Other Visits Medication Dose Route Frequency belimumab 1,000 mg in NaCl 0.9% 250 mL (BENLYSTA) 1,000 mg INTRAVENOUS ONCE NaCl 0.9% iv infusion 500-999 mL/hr INTRAVENOUS PRN diphenhydrAMINE 50 mg injection (BENADRYL) 50 mg INTRAVENOUS PRN hydrocortisone sodium succinate (PF) 100 mg injection (Solu-CORTEF) 100 mg INTRAVENOUS PRN EPINEPHrine 1 mg/mL (1 mL) 0.3 mg injection 0.3 mg INTRAMUSCULAR PRN ACTIVE PROBLEM LIST Edema Proteinuria Essential Hypertension Atrial Fibrillation (Hcc) Membranous Glomerulonephritis Vitamin D Deficiency Sle (Systemic Lupus Erythematosus) (Hcc) Fibromyalgia Sleep Apnea Encounter for Long-Term (Current) Use of Other High-Risk Medications Osteoarthritis of ankle and foot HALLUX VALGUS ACQUIRED Other Hammer Toe (Acquired) Enthesopathy of Ankle and Tarsus, Unspecified Lesion of Plantar Nerve Neuralgia, Neuritis, and Radiculitis, Unspecified Foot Pain, Left Other Synovitis and Tenosynovitis, Unspecified Ankle and Foot Osteoarthrosis of Ankle and Foot, Left Synovitis of Left Foot Synovitis of Right Foot Vocal Cord Edema Synovitis of Foot Conjunctivitis Keratopathy Obesity, Class III, BMI >= 40 Hypothyroidism Chronic Congestive Heart Failure (Hcc) Status Post Right Hip Replacement S/P Total Hip Arthroplasty Mixed Hyperlipidemia Obesity, Class II, Bmi 35-39.9 Thoracic Ascending Aortic Aneurysm (Hcc) PAST MEDICAL HISTORY Diagnosis Date Arrhythmia Atrial fibrillation (HCC) on coumadin Herniated intervertebral disk HTN (hypertension) Hyperlipemia Kidney disease MONI (obstructive sleep apnea) no longer using CPAP since 60 lb weight loss Other acute pancreatitis with uninfected necrosis SLE (systemic lupus erythematosus) (HCC) Sleep apnea 07/29/2012 FAMILY HISTORY Problem Relation Age of Onset Alzheimer's Disease Father Hypertension Father Cataract Mother Hypertension Mother Colon Cancer Mother Cataract Sister Hypertension Sister Colon Cancer Paternal Uncle Social History Tobacco Use Smoking status: Never Smoker Smokeless tobacco: Never Used Vaping Use Vaping Use: Never used Substance Use Topics Alcohol use: Yes Comment: very rare Drug use: No Review of Systems CONSTITUTION: Negative for: Fever and Recent weight change HEENT: Negative for: Nosebleeds, Mouth sores, Trouble swallowing and Dry mouth RESPIRATORY: Positive for: Shortness of breath Negative for: Cough and Pain with breathing GASTROINTESTINAL: Positive for: Diarrhea and Abdominal pain Negative for: Melena and Heartburn MUSCULOSKELETAL: Positive for: Arthralgias, Myalgias, Muscle weakness, Joint swelling and Morning Joint Stiffness NEUROLOGICAL: Positive for: Headaches Negative for: Numbness and Memory loss SKIN: Negative for: Rash, Skin changes, Hair loss and Nail changes EYES: Negative for: Eye pain, Eye redness, Eye dryness and visual disturbance CARDIOVASCULAR: Negative for: Chest pain and Leg swelling GENITOURINARY: Negative for: Dysuria and Hematuria HEMATOLOGIC/LYMPHATIC: Negative for: Swollen glands PHYSICAL EXAM GENERAL APPEARANCE: WD/WN, NAD. Appropriate grooming. VITALS: Blood pressure 121/50, pulse 67, temperature 36.1 C (96.9 F), temperature source Temporal, weight 115.4 kg (254 lb 6.4 oz). SKIN: warm and dry, no rash, normal turgor CHEST: clear to percussion/auscultation HEART: RRR, Nl S1,S2 ABDOMEN: soft, non-tender, MUSCULOSKELETAL: Gait wnl w/o assistive devices. 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 difficile I will cut down her CellCept to 500 mg daily for now may consider stopping it in 6 months if she remains to be stable. Continue Benlysta and Plaquenil eye exam is normal . Also discussed Evusheld and highly recommended. We will set up appointment with cardiology. Need to repeat her bone density. Office Visit on 03/13/22 DXA-AXIAL SKELETON C3 COMPLEMENT BLD C4 COMPLEMENT BLD CBC + DIFF COMP METABOLIC PANEL SED RATE WESTERGREN URINALYSIS, WITH MICROSCOPIC C-REACTIVE PROTEIN (CRP) Evelin Hardin MD documented in this encounter [facility] 03-12-2022 Miscellaneous Notes Patient sent a [employer] message she will not be taking the Evusheld injection this appointment. Liliane García RN documented in this encounter [facility] 03-06-[address] Vazquez RN - 03/06/2022 9:33 AM EDT Fact Sheet for Patients, Parents And Caregivers Emergency Use Authorization (EUA) of EVUSHELD (tixagevimab co-packaged with cilgavimab) for Coronavirus Disease 2019 (COVID-19) You are being given this Fact Sheet because your healthcare provider believes it is necessary to provide you with EVUSHELD (tixagevimab co-packaged with cilgavimab) for pre-exposure prophylaxis for prevention of coronavirus disease 2019 (COVID-19) caused by the SARS-CoV-2 virus. This Fact Sheet contains information to help you understand the potential risks and potential benefits of taking EVUSHELD, which you have received or may receive. The [place].S. Food and Drug Administration (FDA) has issued an Emergency Use Authorization (EUA) to make EVUSHELD available during the COVID-19 pandemic (for more details about an EUA please see What is an Emergency Use Authorization? at the end of this document). EVUSHELD is not an FDA-approved medicine in the [place]. Read this Fact Sheet for information about EVUSHELD. Talk to your healthcare provider if you have any questions. It is your choice to receive or not receive EVUSHELD. What is COVID-19? COVID-19 is caused by a virus called a coronavirus. You can get COVID-19 through close contact with another person who has the virus. COVID-19 illnesses have ranged from very mild (including some with no reported symptoms) to severe, including illness resulting in . While information so far suggests that most COVID-19 illness is mild, serious illness can happen and may cause some of your other medical conditions to become worse. Older people and people of all ages with severe, long-lasting (chronic) medical conditions like heart disease, lung disease, and diabetes, for example, seem to be at higher risk of being hospitalized for COVID-19. What is EVUSHELD (tixagevimab co-packaged with cilgavimab)? EVUSHELD is an investigational medicine used in adults and adolescents (12 years of age and older who weigh at least 88 pounds [40 kg]) for pre-exposure prophylaxis for prevention of COVID-19 in persons who are: not currently infected with SARS-CoV-2 and who have not had recent known close contact with someone who is infected with SARS-CoV-2 and o Who have moderate to severe immune compromise due to a medical condition or have received immunosuppressive medicines or treatments and may not mount an adequate immune response to COVID-19 vaccination or o For whom vaccination with any available COVID-19 vaccine, according to the approved or authorized schedule, is not recommended due to a history of severe adverse reaction (such as severe allergic reaction) to a COVID-19 vaccine(s) or COVID-19 vaccine ingredient(s). EVUSHELD is investigational because it is still being studied. There is limited information known about the safety and effectiveness of using EVUSHELD for pre-exposure prophylaxis for prevention of COVID-19. EVUSHELD is not authorized for post-exposure prophylaxis for prevention of COVID-19. The FDA has authorized the emergency use of EVUSHELD for pre-exposure prophylaxis for prevention of COVID-19 under an Emergency Use Authorization (EUA). What should I tell my healthcare provider before I receive EVUSHELD? Tell your healthcare provider if you: Have any allergies Have low numbers of blood platelets (which help blood clotting), a bleeding disorder, or are taking anticoagulants (to prevent blood clots) Have had a heart attack or stroke, have other heart problems, or are at high-risk of cardiac (heart) events Are or plan to become Are a child Have any serious illness Are taking any medications (prescription, [id number], vitamins, or herbal products) How will I receive EVUSHELD? EVUSHELD consists of two investigational medicines, tixagevimab and cilgavimab. You will receive 1 dose of EVUSHELD, consisting of 2 separate injections (tixagevimab and cilgavimab). EVUSHELD will be given to you by your healthcare provider as 2 intramuscular injections, given one after the other. You may need to receive additional doses of EVUSHELD for ongoing protection. Viruses can waste/materials exchange specialist time (mutate) and develop into a slightly different form of the virus, called a variant. The duration that EVUSHELD will protect you from infection may change with certain variants. The best timing for you to receive additional doses of EVUSHELD, if needed, is not known right now, because this depends on which SARS-CoV-2 variants will be present in the future. Talk to your healthcare provider about receiving additional doses of EVUSHELD for ongoing protection and for further instructions. You can keep up-to-date with the latest information by visiting [email or web address] or by scanning the QR code, below: Who should generally not take EVUSHELD? Do not take EVUSHELD if you have had a severe allergic reaction to EVUSHELD or any ingredient in EVUSHELD. What are the important possible side effects of EVUSHELD? Possible side effects of EVUSHELD are: Allergic reactions. Allergic reactions can happen during and after injection of EVUSHELD. Tell your healthcare provider right away if you get any of the following signs and symptoms of allergic reactions: fever, chills, nausea, headache, shortness of breath, low or high blood pressure, rapid or slow heart rate, chest discomfort or pain, weakness, confusion, feeling tired, wheezing, swelling of your lips, face, or throat, rash including hives, itching, muscle aches, dizziness and sweating. These reactions may be severe or life threatening. Cardiac (heart) events: Serious cardiac adverse events have happened, but were not common, in people who received EVUSHELD and also in people who did not receive EVUSHELD in the clinical trial studying pre-exposure prophylaxis for prevention of COVID-19. In people with risk factors for cardiac events (including a history of heart attack), more people who received EVUSHELD experienced serious cardiac events than people who did not receive EVUSHELD. It is not known if these events are related to EVUSHELD or underlying medical conditions. Contact your healthcare provider or get medical help right away if you get any symptoms of cardiac events, including pain, pressure, or discomfort in the chest, arms, neck, back, stomach or jaw, as well as shortness of breath, feeling tired or weak (fatigue), feeling sick (nausea), or swelling in your ankles or lower legs. The side effects of getting any medicine by intramuscular injection may include pain, bruising of the skin, soreness, swelling, and possible bleeding or infection at the injection site. These are not all the possible side effects of EVUSHELD. Not a lot of people have been given EVUSHELD. Serious and unexpected side effects may happen. EVUSHELD is still being studied so it is possible that all of the risks are not known at this time. It is possible that EVUSHELD may reduce your body s immune response to a COVID-19 vaccine. If you have received a COVID-19 vaccine, you should wait to receive EVUSHELD until at least 2 weeks after COVID-19 vaccination. What other prevention choices are there? Vaccines to prevent COVID-19 are approved or available under Emergency Use Authorization. Use of EVUSHELD does not replace vaccination against COVID-19. For more information about other medicines authorized for treatment or prevention of COVID-19 go to https://www.fda.gov/emergency-prep rourrkkl-htd-miterhkp/csy-ejbwg-nd nzclmels-zzd-flfscr-framework/avi xryzj-idn-qilnfwvxlmhwm. It is your choice to receive or not receive EVUSHELD. Should you decide not to receive EVUSHELD, it will not change your standard medical care. EVUSHELD is not authorized for post-exposure prophylaxis of COVID-19. What if I am or ? If you are or , discuss your options and specific situation with your healthcare provider. How do I report side effects with EVUSHELD? Contact your healthcare provider if you have any side effects that bother you or do not go away. Report side effects to FDA [employer] at www.fda.gov/medUrban [employer]2tch or call 0-422-WBB-7904 or call [employer] at . Additional Information If you have questions, visit the website or call the telephone number provided below. To access the most recent EVUSHELD Fact Sheets, please scan the QR code provided below. Website Telephone number [email or web address] How can I learn more about COVID-19? Ask your healthcare provider. Visit https://www.cdc.gov/COVID19 Contact your local or state public health department. What is an Emergency Use Authorization? The [place] FDA has made EVUSHELD (tixagevimab co-packaged with cilgavimab) available under an emergency access mechanism called an Emergency Use Authorization EUA. The EUA is supported by a Veget[employer] Tester of Health and Human Service (HHS) declaration that circumstances exist to justify the emergency use of drugs and biological products during the COVID-19 pandemic. EVUSHELD for pre-exposure prophylaxis for prevention of coronavirus disease 2019 (COVID-19) caused by the SARS-CoV-2 virus has not undergone the same type of review as an FDA-approved product. In issuing an EUA under the COVID-19 public health emergency, the FDA has determined, among other things, that based on the total amount of scientific evidence available including data from adequate and well-controlled clinical trials, if available, it is reasonable to believe that the product may be effective for diagnosing, treating, or preventing COVID-19, or a serious or life-threatening disease or condition caused by COVID-19; that the known and potential benefits of the product, when used to diagnose, treat, or prevent such disease or condition, outweigh the known and potential risks of such product; and that there are no adequate, approved and available alternatives. All of these criteria must be met to allow for the product to be used in the treatment of patients during the COVID-19 pandemic. The EUA for EVUSHELD is in effect for the duration of the COVID-19 declaration justifying emergency use of EVUSHELD, unless terminated or revoked (after which EVUSHELD may no longer be used under the EUA). Distributed by: [employer], [place], [place] Manufactured by: [employer], [facility] [employer], [facility] [id number], [facility] [employer] 2020. All rights reserved. documented in this encounter [facility] 03-06-2022 Miscellaneous Notes Evusheld (tixagevimab/cilgavimab) Eligibility and Patient Discussion [facility] Formulary Restriction Criteria: Outpatient adults and pediatrics 12 years and older and > 40 kg with ALL of the following: [x] COVID test scheduled: Yes Date: 03/07/22, type of test:Home antigen [x] Patient has not been exposed to a SARS-COV-2 positive individual (CDC information on COVID exposure link) [x] Patient is not exhibiting symptoms of SARS-COV-2 infection [x] Patient is able to come in to the clinic for the Evusheld injection [x] Meeting at least one criteria below: [] Active treatment for solid tumor and hematologic malignancies [] Receipt of solid-organ transplant and taking immunosuppressive therapy [] Receipt of chimeric antigen receptor (CAR)-T-cell or hematopoietic stem cell transplant (within 2 years of transplantation or taking immunosuppressive therapy) [] Moderate or severe primary immunodeficiency (e.g. DiGeorge syndrome, Wiskott-Aldrick syndrome) [] Advanced or untreated HIV infection (people with HIV and CD4 cell counts < 200/mm3, history of an AIDS-defining illness without immune reconstitution, or clinical manifestations of symptomatic HIV) [x] Active treatment with high-dose corticosteroids (i.e., >20 mg prednisone or equivalent per day when administered for > 2 weeks), alkylating agents, antimetabolites, transplant-related immunosuppressive drugs, cancer chemotherapeutic agents classified as severely immunosuppressive, and other biologic agents that are significantly immunosuppressive (e.g., B-cell depleting agents, cyclophosphamide) [] Other moderate to severely immunocompromising condition: [] Patients for whom vaccination with any COVID-19 vaccine, according to the approved or authorized schedule, is not recommended due to a history of severe adverse reaction (e.g. severe allergic reaction) to a COVID-19 vaccine(s) and/or COVID-19 vaccine components Criteria above are met: Yes Patient received COVID vaccine: Yes Last dose of COVID vaccine is greater than 14 days prior to the planned injection date of Evusheld: Yes Laboratory and comorbidity assessment: Platelet Count (k/uL) Date Value 12/09/2021 231 05/16/2021 272 Last platelet count greater than 20 k/uL: Yes. If on warfarin, most recent INR should be within therapeutic range: not applicable Cardiovascular disease history: No. I have discussed the use of the investigational therapeutic, Evusheld (tixagevimab/cilgevimab), for pre-exposure prophylaxis of COVID-19 infection and its use under Emergency Use Authorization with the patient. The patient was informed that tixagevimab/cilgevimab is not an FDA approved drug and that it is authorized for use under this Emergency Use Authorization. The patient was also informed of the significant known benefits and potential risks of tixagevimab/cilgevimab, and the extent to which such potential risks and benefits are unknown. The patient was informed that there is mandatory reporting of all medication errors and serious adverse events potentially related to tixagevimab/cilgevimab treatment within 7 calendar days from the onset of the event. The discussion included alternatives to receiving tixagevimab/cilgevimab, including clinical trials, and potential the risks and benefits of those alternatives. The patient was provided electronically with the Fact Sheet for Patients, Parents and Caregivers . The patient stated understanding and gave verbal consent to proceeding with tixagevimab/cilgevimab treatment. Court Vazquez RN March 06, 2022 9:33 AM documented in this encounter [facility] 02-24-2022 Miscellaneous Notes Spoke with patient regarding positive C. difficile toxin by PCR. Have ordered vancomycin p.o. 4 times daily x 10 days to her local pharmacy. Patient verbalized understanding all questions answered. Dione Reinoso MD, MPH Gastroenterology and Hepatology documented in this encounter [facility] 02-24-2022 Miscellaneous Notes Most recent Rheumatology visit: 12/09/2021 (with Cuca Guthrie) Upcoming Rheumatology Appointments - Next 365 Days Visit Type Date Time Department [facility] 03/13/2022 11:30 AM RHEU MAIN A50 Last Ophthalmology Check for Plaquenil (Hydroxychloroquine) Last OCT Macula Exam No resulted procedures found. Last Visual Field Exam No resulted procedures found. CBC: CBC Latest Ref Rng & Units 05/16/2021 12/09/2021 WBC 3.70 - 11.00 k/uL 7.08 7.53 HEMOGLOBIN 11.5 - 15.5 g/dL 14.0 13.8 HEMATOCRIT 36.0 - 46.0 % 43.2 42.6 PLATELETS 150 - 400 k/uL 272 231 ABS NEUT (ANC) 1.45 - 7.50 k/uL 3.75 4.66 ABS LYMPH 1.00 - 4.00 k/uL 2.22 1.69 Vitamin D: None on file in the last 6 months LFT: CMP Latest Ref Rng & Units 05/16/2021 12/09/2021 SODIUM 136 - 144 mmol/L 141 139 POTASSIUM 3.7 - 5.1 mmol/L 4.4 4.6 CHLORIDE 97 - 105 mmol/L 107(H) 109(H) CO2 22 - 30 mmol/L 25 19(L) GLUCOSE 74 - 99 mg/dL 84 85 BUN 7 - 21 mg/dL 14 26(H) CREATININE 0.58 - 0.96 mg/dL 0.84 1.02(H) CALCIUM, TOTAL 8.5 - 10.2 mg/dL 10.3(H) 10.3(H) AST 13 - 35 U/L 30 25 ALT 7 - 38 U/L 27 27 ALKALINE PHOSPHATASE 34 - 123 U/L 130(H) 120 Creatinine: Creatinine Latest Ref Rng & Units 05/16/2021 12/09/2021 CREAT 0.58 - 0.96 mg/dL 0.84 1.02(H) ESR/CRP: ESR, WSR Latest Ref Rng & Units 05/16/2021 12/09/2021 WSR 0 - 20 mm/hr 5 5 CRP Latest Ref Rng & Units 05/16/2021 12/09/2021 CRP <0.9 mg/dL 0.5 0.6 Uric Acid: None on file in the last 6 months Open Standing (Multiple Instance) Lab Orders None Open Future (Single Instance) Lab Orders Expected Expires Ordered CBC [SQCBC] 09/13/22 09/13/21 Auth. provider: Keyanna Carter APRN.[employer] Assoc. diagnoses: Chronic diastolic congestive heart failure (HCC), Paroxysmal atrial fibrillation (HCC), Essential hypertension Pending Prescriptions Disp Refills HYDROXYCHLOROQUINE 200 MG TABLET 180 tablet 2 Sig: take 1 tablet by mouth twice a day with food NIKITA: No Court Vazquez RN documented in this encounter [facility] 02-21-2022 Miscellaneous Notes Spoke with patient regarding recent ER visits. Initial ER visit on February 08 was for a UTI for which she was given IV antibiotics followed by 5 days of oral antibiotics. She then on February 11 began to have diarrhea which worsened to the point that she visited the ER on February 13 and received IV fluids. She was told she had a UC flare however colonoscopy in August was normal with no active disease and recent CT scan did not show any inflammation. She denies any rectal bleeding. She states overall she is starting to feel better and her stools are not as liquid, the abdominal pain has resolved and she is tolerating a bland diet. Suspect antibiotic induced diarrhea versus an infectious source, will check stool studies for infection and C. difficile. Patient verbalized understanding all questions answered. Dione Reinoso MD, MPH Gastroenterology and Hepatology documented in this encounter [facility] 02-20-2022 Miscellaneous Notes Pt called back. Please see 02/14/22 phone encounter. documented in this encounter [facility] 2022 Miscellaneous Notes Please see other phone encounter that was sent by Pt. documented in this encounter [facility] 02-09-2022 Discharge summary Note Date/Time February 09, 2022 11:55am [facility] [address] [place] [address] Discharge Summary Signed Patient: Jesus Wolf MR#: [id number] : 1955 Acct:[id number] Age/Sex: 66 / F Adm Date: 2 Loc: Room: [address] [place] [address]: Hussain Cat MD Copies to: DO Hussain Helms MD~ Providers Date of Discharge: 02/09/22 Discharging Provider: Hussain Cat Primary Care Provider: Wojciech Treviño Consults: 02/07/22 19:22 Consult to Occupational Therapy Routine Consult to Physical Therapy Routine Consult to Speech Therapy Routine 02/07/22 19:35 Consult to Neurology Routine Discharge Diagnosis (1) Acute alteration in mental status: (2) Acute UTI: (3) MONI (obstructive sleep apnea): (4) Obesity: (5) Generalized weakness: (6) Lupus: (7) HTN (hypertension): (8) HLD (hyperlipidemia): (9) Acute encephalopathy: Final Diagnosis Final Discharge Diagnosis: As above Summary Hospital Course Hospital course: Ms. Wolf is a 66yo F with PMH of multiple medical comorbidities including SLE, diastolic CHF, MONI, hypertension, hyperlipidemia, paroxysmal A. fib, ulcerative colitis, morbid obesity, aortic aneurysm who presented to the emergency department with generalized weakness and altered mental status. Patient was running errands with her when she all of a sudden became weak and disoriented with her family. Urinalysis was consistent with UTI. Urine culture ultimately grew pansensitive E. coli. Patient did undergo extensive neurologic work-up given concern for acute CVA on initial presentation. Neurology was consulted for their assessment and recommended further imaging with brain MRI which did not reveal acute changes. Patient had significant clinical improvement with IV ceftriaxone administration x2 days while inpatient. She will continue a total 5-day course of antibiotic therapy for her UTI with Keflex. She was recommended to follow-up with her primary carephysician 7 to 10 days after discharge for further management of her chronic medical conditions. 35 minutes spent coordinating the discharge of this patient Time Spent with Patient Time spent providing/coordinating discharge services (# min): 35 Diagnostic Studies Completed and Pending Studies Labs on day of discharge: 02/08/22 06:17: C-Reactive Prot, Quant 3.9 H 02/08/22 06:17: ESR 40 H Exam Physical Exam Vital Signs: Temp Pulse Resp BP Pulse Ox 97.9 F 71 18 123/71 94 L 02/09/22 08:00 02/09/22 08:00 02/09/22 08:00 02/09/22 08:00 02/09/22 08:00 Narrative: Constitutional: Elderly WF, resting in bed in no acute distress HEENT: Moist mucous membranes, neck supple, no JVD Cardiovascular: RRR, no M/R/G, normal S1 and S2 Respiratory: Clear to auscultation bilaterally, no wheezes, rales or rhonchi GI: Soft, obese abdomen, tender to palpation in the right upper and lower quadrants. No rebound tenderness or guarding : Deferred Extremities: No clubbing, cyanosis or edema Neuro: AAOx3, no focal deficits. Strength 5/5 throughout Skin: No rashes or lesions noted upon anterior inspection Psych: Calm, cooperative and conversant Discharge Plan Discharge Plan Patient Disposition: Home Health [facility] Activity: No Activity Restriction Additional Instructions: Home Health to manage care: - Full code - PT/OT eval and treat - Routine vital signs - Medication management and education - Routine neurochecks Instructions: Urinary Tract Infection, Adult (DC) Prescriptions: New cephalexin 500 mg capsule 500 mg PO Q6H 3 Days Qty: 12 RF: 0 Continued atorvastatin 40 mg Tablet 40 mg PO DAILY RF: 0 venlafaxine 150 mg Capsule,Extended Release 24hr 150 mg PO QHS RF: 0 mycophenolate mofetil 500 mg Tablet 1,000 mg PO HS RF: 0 vitamin B complex [B Complex 1] Tablet 100 mg PO DAILY RF: 0 hydroxychloroquine 200 mg Tablet 200 mg PO BID RF: 0 Centrum Silver 0.4-300-250 mg-mcg-mcg Tablet 1 tab PO DAILY RF: 0 cholecalciferol (vitamin D3) 2,000 unit Tablet 2,000 unit PO DAILY RF: 0 Eliquis 5 mg Tablet 5 mg PO BID RF: 0 celecoxib 200 mg Capsule 200 mg PO DAILY RF: 0 mesalamine [Lialda] 1.2 gram tablet,delayed release (DR/EC) 1.2 g PO QID RF: 0 belimumab 120 mg Recon Soln 10 mg/kg IV DIRECTED RF: 0 metoprolol succinate 100 mg tablet extended release 24 hr 50 mg PO BID RF: 0 furosemide 40 mg Tablet 40 mg PO DAILY.8A 30 Days Qty: 30 RF: 0 spironolactone 50 mg Tablet 50 mg PO DAILY 30 Days Qty: 30 RF: 0 sucralfate [Carafate] 100 mg/mL Suspension 10 ml PO QID RF: 0 pantoprazole 40 mg tablet,delayed release (DR/EC) 40 mg PO DAILY RF: 0 Align 4 mg Capsule 4 mg PO DAILY RF: 0 levothyroxine 75 mcg tablet 75 mcg PO DAILY RF: 0 ferrous sulfate 325 mg (65 mg iron) Tablet 325 mg PO DAILY RF: 0 cholestyramine-aspartame 4 gram Powder 4 g PO BID RF: 0 buspirone 10 mg Tablet 10 mg PO QHS RF: 0 Other Ambulatory Orders: Initiate Home Health (Routine) Timeframe: 1 Day Location: Determined by Patient Ordered By: Hussain Cat Follow Up: Wojciech Treviño DO [Primary Care Provider] - (Call office on Thursday to schedulefollow-up with your Primary Care Provider in 3-5 days. ) Rachelle Frazier DO [Courtesy/Consulting Physician] - (Neurology to arrange outpatient follow-up. ) Documented By: Hussain Cat MD 2 [id number] Signed By: <Electronically signed by Hussain Cat MD> 02/09/22 9[address] [facility] Work Phone: 1(357) 286-199106-25-2022 Progress note Author Hussain Cat [facility] February 08, 2022 6:09pm Note Date/Time February 08, 2022 5:53 pm [facility] [address] [place] [address] Hospitalist Progress Note Signed Patient: Jesus Wolf MR#: [id number] : 1955 Acct:[id number] Age/Sex: 66 / F Adm Date: 2 Loc: Room: [address] [place] [address] Type : ADM INOo Attending Dr: Hussain Cat MD Copies to: ~ Date of Service: 02/08/2022 Subjective Subjective Narrative: Patient seen and assessed with family at bedside today. Patient does continue to feel weak overall, but feels that her strength is improved today. Her headache does continue to persist. She also notes that her red rash on her facedoes seem to be a little redder today. Family notes that she does often have skin changes related to her lupus when she is sick with other illnesses. Urine culture is now growing greater than 100,000 gram-negative rods. Exam Physical Exam Vital Signs: Temp Pulse Resp BP Pulse Ox 97.5 F L 74 16 99/63 L 99 02/08/22 12:00 02/08/22 12:00 02/08/22 12:00 02/08/22 12:02/08/22 12:00 Narrative: Constitutional: Elderly WF, resting in bed in no acute distress HEENT: Moist mucous membranes, neck supple, no JVD Cardiovascular: RRR, no M/R/G, normal S1 and S2 Respiratory: Clear to auscultation bilaterally, no wheezes, rales or rhonchi GI: Soft, obese abdomen, tender to palpation in the right upper and lower quadrants. No rebound tenderness or guarding : Deferred Extremities: No clubbing, cyanosis or edema Neuro: Awake and alert on my assessment. She is alert and oriented to person atthe time of my assessment. Patient is sleepy and slow to respond to questions, But answers all questions appropriately. Patient is able to move all extremities, but reports having difficulty keeping her leg elevated against gravity. 3+/5 strength in all extremities Skin: No rashes or lesions noted upon anterior inspection Psych: Calm, cooperative and conversant Objective Lab Results CBC & Chem 7: 02/08/22 06:17 02/08/22 06:17 Microbiology Results Microbiology 02/07/22 16:29 Urine - Straight Cath Urine Culture - Preliminary Gram Negative Bacilli 02/07/22 16:46 Nasal SARS Antigen (LFIA) - Final Meds Allergies and Active Meds Allergies dofetilide Allergy (Verified 02/07/22 11:46) Anaphylaxis prochlorperazine [From Compazine] Allergy (Verified 02/07/22 11:46) Unknown Reaction Sulfa (Sulfonamide Antibiotics) Allergy (Verified 02/07/22 11:46) Anaphylaxis tetanus and diphtheria toxoids Allergy (Verified 02/07/22 11:46) Redness of Skin codeine Adverse Reaction (Verified 02/07/22 11:46) Headache epinephrine Adverse Reaction (Verified 02/07/22 11:46) Palpitations Iodinated Contrast Media Adverse Reaction (Verified 02/07/22 11:46) Flushing Active Meds: Active Medications Generic Name Dose Route Start Last Admin Trade Name Freq PRN Reason Stop Dose Admin Acetaminophen 650 mg 02/07/22 19:22 02/08/22 15:36 Acetaminophen 325 Mg Tablet PO 02/07/23 19:21 650 mg Q6HR PRN Administration Pain Scale 1 - 3 or fever Apixaban 5 mg 02/07/22 21:00 02/08/22 10:17 Apixaban 5 Mg Tablet PO 02/07/23 20:59 5 mg BID RUBEN Administration Aspirin 81 mg 02/08/22 09:00 02/08/22 10:16 Aspirin 81 Mg Tab.Chew PO 02/08/23 08:59 81 mg DAILY RUBEN Administration Atorvastatin Calcium 40 mg 02/08/22 09:00 02/08/22 10:17 Atorvastatin 40 Mg Tablet PO 02/08/23 08:59 40 mg DAILY RUBEN Administration Celecoxib 200 mg 02/08/22 09:00 02/08/22 10:16 Celecoxib 200 Mg Capsule PO 02/08/23 08:59 200 mg DAILY RUBEN Administration Cholestyramine Resin 4 gm 02/07/22 20:00 02/08/22 17:48 Cholestyramine/Aspartame 4 Gm/Packet Powd.Pack PO 02/07/23 19:59 4 gm BID.WITH.MEALS RUBEN Administration Ferrous Sulfate 324 mg 02/08/22 09:00 02/08/22 10:17 Ferrous Sulfate 324 Mg Tablet.Dr SANTOS 02/08/23 08:59 324 mg DAILY RUBEN Administration Furosemide 40 mg 02/08/22 08:00 02/08/22 10:20 Furosemide 40 Mg Tablet PO 02/08/23 07:59 40 mg DAILY.8A RUBEN Administration Hydroxychloroquine Sulfate 200 mg 02/07/22 21:00 02/08/22 10:17 Hydroxychloroquine Sulfate 200 Mg Tablet PO 02/07/23 20:59 200 mg BID RUBEN Administration Magnesium Sulfate 2 gm in 50 mls @ 25 mls/hr 02/07/22 19:22 02/08/22 10:28 Magnesium Sulf 2gm-*Swfi* IV 02/07/23 19:21 25 mls/hr DAILY PRN Administration Magnesium Level < 1.7 Ceftriaxone Sodium 1 gm in 50 mls @ 100 mls/hr 02/08/22 17:00 02/08/22 17:46 Rocephin IV 100 mls/hr Q24H RUBEN Administration Lact Acid/Bifidobact/Lact [place]/Streptoc Th 1 cap 02/08/22 09:00 02/08/22 10:16 L. Acidophilus/Strept/La P-Boom 1 Cap Capsule PO 02/08/23 08:59 1 cap DAILY RUBEN Administration Levothyroxine Sodium 75 mcg 02/08/22 06:30 02/08/22 06:45 Levothyroxine 75 Mcg Tablet PO 02/08/23 06:29 75 mcg DAILY@0630 RUBEN Administration Mesalamine 1.2 gm 02/07/22 22:00 02/08/22 17:49 Mesalamine 1.2 [address] SANTOS 02/07/23 21:59 1.2 gm QID RUBEN Administration Metoprolol Succinate 50 mg 02/07/22 21:00 02/08/22 10:17 Metoprolol Succinate 50 Mg Tab.Er.24h PO 02/07/23 20:59 50 mg BID RUBEN Administration Mycophenolate Mofetil 1,000 mg 02/07/22 22:00 02/07/22 21:51 Mycophenolate Mofetil 250 Mg Capsule PO 02/07/23 21:59 1,000 mg HS RUBEN Administration Omeprazole 20 mg 02/08/22 09:00 02/08/22 10:17 Omeprazole 20 [address]Dr SANTOS 02/08/23 08:59 20 mg DAILY RUBEN Administration Ondansetron HCl 4 mg 02/07/22 19:22 Ondansetron 4 Mg/2 Ml Vial IV-PUSH 02/07/23 19:21 Q6H PRN Nausea And Vomiting Potassium Chloride 40 meq 02/07/22 19:22 Potassium Chloride Er 20 Meq Tab.Er.Prt PO 02/07/23 19:21 DAILY PRN Hypokalemia Sodium Chloride 0 ml 02/07/22 11:46 02/08/22 17:49 Sodium Chloride 0.9 % 10 Ml Syringe IV-PUSH 02/07/23 11:45 10 ml PRN PRN Administration Flush Sodium Chloride 0 ml 02/07/22 19:22 Sodium Chloride 0.9 % 10 Ml Syringe IV-PUSH 02/07/23 19:21 PRN PRN Flush Sodium Chloride 10 ml 02/07/22 22:38 Sodium Chloride 0.9 % 10 Ml Vial.Pf INJECTION ONCE PRN ATIVAN DILUTION Spironolactone 50 mg 02/08/22 09:00 02/08/22 10:17 Spironolactone 50 Mg Tablet PO 02/08/23 08:59 50 mg DAILY RUBEN Administration Sucralfate 1 gm 02/07/22 22:00 02/08/22 17:48 Sucralfate Susp 1 Gm/10 Ml Udc PO 02/07/23 21:59 1 gm ACHS RUBEN Administration Venlafaxine HCl 150 mg 02/07/22 22:00 02/07/22 21:51 Venlafaxine Er 150 Mg Cap.Er.24h PO 02/07/23 21:59 150 mg QHS RUBEN Administration Vitamin D 50 mcg 02/08/22 09:00 02/08/22 10:16 Cholecalciferol 25 Mcg (1,000 Units) Tablet PO 02/08/23 08:59 50 mcg DAILY RUBEN Administration A&P - Hospitalist Assessment/Plan (1) Acute alteration in mental status: (2) Acute UTI: (3) MONI (obstructive sleep apnea): (4) Obesity: (5) Generalized weakness: (6) Lupus: (7) HTN (hypertension): (8) HLD (hyperlipidemia): Plan Ms. Wolf is a 66-year-old female with PMH of multiple medical comorbidities including SLE, diastolic CHF, MONI, HTN, HLD, paroxysmal A. fib, ulcerative colitis, morbid obesity, ascending thoracic aortic aneurysm, who presents to theemergency department with altered mental status and weakness. Urine culture is now growing greater than 100,000 gram-negative rods. She has had E. coli that was pansensitive in the past and thus we will continue patient on IV ceftriaxone. Neurology has seen and assessed and MRI is completed. Shows only chronic microvascular changes. Will defer further imaging and inpatient work-upto neurology. We will continue to monitor for an additional night and plan for likely discharge tomorrow unless further inpatient neurologic work-up is needed. Continue home medications at this time. CODE STATUS: Full code Documented By: Hussain Cat MD 2 [id number] Signed By: <Electronically signed by Hussain Cat MD> 02/08/[address] [facility] Work Phone: 1(425) 754-978306-25-2022 Consult note Author Rachelle Frazier [facility] February 08, 2022 1:25pm Note Date/Time February 08, 2022 11:5 6am [facility] [address] [place] [address] Neurology Consult Note Signed Patient: Jesus Wolf MR#: [id number] : 1955 Acct:[id number] Age/Sex: 66 / F Adm Date: 2 Loc: Room: [address] [place] [address] Type : ADM INOo Attending Dr: Hussain Cat MD Copies to: DO Hussain Helms MD Nicole J Danner, DO~ HPI Consult Date: 02/08/22 Surgical Services Director: Rachelle Frazier DO Reason for consult: AMS Consult Narrative HPI: 66-year-old female being seen in Neurology consultation at the request of the hospitalist for altered mental status. The patient has a PMH of multiple medical comorbidities including SLE, diastolic CHF, MONI, HTN, HLD, paroxysmal A.fib, ulcerative colitis, morbid obesity, ascending thoracic aortic aneurysm, whopresents to the emergency department with altered mental status.? Patient was reportedly in her normal state of health up until today when she was running errands with her .? She reportedly became very weak all of a sudden and then was unable to recognize family members that were next to her.? She was brought into the emergency department for further evaluation.? Patient reportedly was completely normal yesterday and had no major issues.? She has nothad any recent changes to her home medications. The patient does not remember the events of yesterday She had also developed some jaw pain. She did have some stiff neck all weak. She went to the chiropractor and had HVLA to the neck this was on . She was was sore after the manaipulation She still had neck and shoulder pain yesterday She is swollenin her neck. She does get a burst of steroids every 3 months She did have steroids yesterday for the CT scan. She is feeling a little better today She is not having the confusion that she was having. states that she looks like she has her lupus rash coming on. In the emergency department, patient remained disoriented and thus CT imaging ofthe head, neck, chest with angiogram was obtained.? Exam is largely nonfocal however.? There were no acute findings essentially.? Urinalysis is consistent with UTI. Review of Systems Constitutional Constitutional: Denies chills and Denies fever(s) Eyes Eyes: Denies blurry vision and Denies diplopia ENT Ears, Nose, Mouth, and Throat: Denies nasal congestion and Denies nasal discharge Cardiovascular Cardiovascular: Denies chest pain and Denies palpitations Respiratory Respiratory: Denies cough and Denies dyspnea Comments: baseline Sob Gastrointestinal Gastrointestinal: Denies nausea and Denies vomiting Genitourinary Genitourinary: Denies dysuria and Denies hematuria Musculoskeletal Musculoskeletal: Reports neck pain, Denies numbness, Reports stiffness and Denies tingling Integumentary/Breasts Skin/Breast: Reports rash Neurologic Neurologic: Reports confusion, Denies tingling and Denies weakness Psychiatric Psychiatric: Reports confusion Endocrine Endocrine: Denies palpitations PMFSH Vaccinated for COVID-19?: Yes Medical History (Updated 02/08/22 @ 13:20 by Rachelle Frazier DO) Atrial fibrillation CHF (congestive heart failure) Colitis DJD (degenerative joint disease) Edema Enthesopathy of ankle and tarsus Fibromyalgia Hallux valgus (acquired) Hammer toe Hypertension Lesion of plantar nerve Lupus Membranous glomerulonephritis Morbid obesity Neuralgia, neuritis, and radiculitis, unspecified Osteoarthritis Proteinuria SLE (systemic lupus erythematosus related syndrome) Sleep apnea Synovitis and tenosynovitis Varicose vein of leg Vitamin D deficiency Vocal cord edema Surgical History History of appendectomy S/P ablation of atrial fibrillation S/P ablation of atrial flutter SEP 01, 2019 Family History Other HTN (hypertension) Social History Smoking Status: Never smoker Substance Use Type: None Social History Comments: tob none Etoh rarely mother dec colon cancer father dec Alz dementia. Meds Medications and Allergies Allergies dofetilide Allergy (Verified 02/07/22 11:46) Anaphylaxis prochlorperazine [From Compazine] Allergy (Verified 02/07/22 11:46) Unknown Reaction Sulfa (Sulfonamide Antibiotics) Allergy (Verified 02/07/22 11:46) Anaphylaxis tetanus and diphtheria toxoids Allergy (Verified 02/07/22 11:46) Redness of Skin codeine Adverse Reaction (Verified 02/07/22 11:46) Headache epinephrine Adverse Reaction (Verified 02/07/22 11:46) Palpitations Iodinated Contrast Media Adverse Reaction (Verified 02/07/22 11:46) Flushing Home Medications atorvastatin 40 mg tablet 40 mg PO DAILY 04/03/19 [History Confirmed 02/07/22] cholecalciferol (vitamin D3) 50 mcg (2,000 unit) tablet 2,000 unit PO DAILY 04/03/19 [History Confirmed 02/07/22] hydroxychloroquine 200 mg tablet 200 mg PO BID 04/03/19 [History Confirmed 02/07/22] hsvlymjm-tpv-ihcuz acid 0.4 mg-lycopene 300 mcg-lutein 250 mcg tablet (Centrum Silver) 1 tab PO DAILY 04/03/19 [History Confirmed 02/07/22] mycophenolate mofetil 500 mg tablet 1,000 mg PO HS 04/03/19 [History Confirmed 02/07/22] venlafaxine 150 mg capsule,extended release 24 hr 150 mg PO QHS 04/03/19 [History Confirmed 02/07/22] vitamin B complex (B Complex 1) 100 mg PO DAILY 04/03/19 [History Confirmed 02/07/22] apixaban 5 mg tablet (Eliquis) 5 mg PO BID 05/08/19 [History Confirmed 02/07/22] celecoxib 200 mg capsule 200 mg PO DAILY 06/19/19 [History Confirmed 02/07/22] mesalamine 1.2 gram tablet,delayed release (Lialda) 1.2 g PO QID 06/19/19 [History Confirmed 02/07/22] belimumab 120 mg intravenous solution 10 mg/kg IV DIRECTED 09/18/19 [History Confirmed 02/07/22] metoprolol succinate 100 mg tablet,extended release 24 hr 50 mg PO BID 09/18/19 [History Confirmed 02/07/22] furosemide 40 mg tablet 40 mg PO DAILY.8A 30 Days #30 tab 09/30/19 [Rx Confirmed 02/07/22] spironolactone 50 mg tablet 50 mg PO DAILY 30 Days #30 tab 09/30/19 [Rx Confirmed 02/07/22] Bifidobacterium infantis 4 mg capsule (Align) 4 mg PO DAILY 02/07/22 [History Confirmed 02/07/22] buspirone 10 mg tablet 10 mg PO QHS 02/07/22 [History Confirmed 02/07/22] cholestyramine-aspartame 4 gram oral powder 4 g PO BID 02/07/22 [History Confirmed 02/07/22] ferrous sulfate 325 mg (65 mg iron) tablet 325 mg PO DAILY 02/07/22 [History Confirmed 02/07/22] levothyroxine 75 mcg tablet 75 mcg PO DAILY 02/07/22 [History Confirmed 02/07/22] pantoprazole 40 mg tablet,delayed release 40 mg PO DAILY 02/07/22 [History Confirmed 02/07/22] sucralfate 100 mg/mL oral suspension (Carafate) 10 ml PO QID 02/07/22 [History Confirmed 02/07/22] Exam Physical Exam Vital Signs: Temp Pulse Resp BP Pulse Ox 97.4 F L 79 16 115/74 94 L 02/08/22 08:00 02/08/22 08:00 02/08/22 08:00 02/08/22 08:00 02/08/22 08:00 Neuro Other: Patient is laying in the bed she does look fatigued and tired but she is alert and oriented x3 and not in any true distress She does appear to have somewhat of a helical rash on her face and on her chin Speech was clear and fluent Cranial nerves II through XII pupils are equal reactive to light and accommodation bilaterally extraocular Muscles were intact bilaterally visual rivas arefull there is no nystagmus there is no facial asymmetry tongue is midline good range of motion palate rises symmetrically uvula is midline there are no facial sensory deficit she has good bilateral shoulder shrug Pronator drift is negative Coordination shows no signs of dysmetria with good rapid alternating movements [id number] Tone is physiologic Sensation was intact to pinprick and light touch Motor examination is 4+ out of Patient did give a poor effort with some generalized weakness throughout but also the perception is that her limbs are heavy and it strains her to lift them not just that they are weak Babinski is negative Language skills are intact Memory is intact Fund of knowledge is within normal limits Results Laboratory Findings CBC and BMP: 02/08/22 06:17 02/08/22 06:17 Diagnostic Findings Imaging/Impressions: ITS Impressions Chest X-Ray 02/07/22 11:49 IMPRESSION: No acute cardiopulmonary disease. Impression dictated by: Brendan Sanches Jr., M.D.02/07/2022 2:56 PM Dictation Location: [facility] Chest CTA 02/07/22 14:20 IMPRESSION: 1. Atherosclerotic changes. 2. Stable ascending aortic aneurysm. 3. No abdominal aortic aneurysm. 4. No visible pulmonary embolism. 5. Scarring in both lungs. 6. Distended gallbladder. 7. Diverticulosis. Impression dictated by: Brendan Sanches Jr., M.D.02/07/2022 3:42 PM Dictation Location: [facility] 02/07/22 14:20 IMPRESSION: No acute intracranial abnormality. Impression dictated by: Brendan Sanches Jr., M.D.02/07/2022 3:42 PM Dictation Location: [facility] Head CTA 02/07/22 14:20 IMPRESSION: 1. No cervical internal carotid artery stenosis. 2. Mildly narrowed intracranial internal carotid arteries. 3. Unremarkable vertebrobasilar system. Impression dictated by: Brendan Sanches Jr., M.D.02/07/2022 3:42 PM Dictation Location: [facility] Therapy Recommendations Therapy Recommendations: PT Recommendations PT Recommended Discharge Home with Home Health Location PT Recommended Services at Physical Therapy,Occupational Therapy,09/[address] Recommendations Liquid Consistency Thin Liquids Recommendation Solid Consistency Regular Solids Recommendations Meat Consistency Whole Meats Recommendations Medication Administration Whole Pills,Give Pills with Water Dysphagia Swallow Precautions/ Sitting Upright (90 deg) Strategies Assessment/Plan (1) Acute alteration in mental status: Assessment/Problem Details: 66-year-old female with an event of altered mental status and generalized weakness. Patient does have multiple medical problems that I feel are contributing to this. She does have underlying lupus and does have somewhat of a rash on her face and her chin therefore it may be in an active process at thispoint in time. She does have underlying obesity and untreated obstructive sleepapnea which leads to sleep deprivation and hypersomnia which likely is playing arole. She was found to have a urinary tract infection. She has underlying debility. She has no focal or lateralizing findings to suggest stroke but we will go ahead and get an MRI to rule that out. Patient did have a CT of her head that was nonacute. Patient does have some neck muscle tightness and pain. She was recently in to see the chiropractor and had HVLA to her neck. Fortunately her CTA did not show any forms of vertebral dissection from this however MRI would be important to be sure that no strokes were thrown to her brain due to this. CTA also did not show any evidence of vasculitis therefore lupus vasculitis is not likely. She was counseled she should not have cracking or HVLA to her neck and her neck should be treated with other modalities. We will go ahead and get an ESR to look for something like polymyalgia rheumatica however this may be falsely negative due to the fact that she did get steroids for her CTA to reduce any risk of allergy to the dye. She may need a repeat ESR/CRP in the next few weeks if her neck pain persists depending on what the score is. She also may have some elevated ESR due to her underlying lupus and chronic medical conditions. I would recommend that she get her sleep apnea treated as this is likely contributing to her underlying issues. She needs to be more aggressive with diet exercise weight loss especially if she cannot tolerate CPAP. Plan CT and CTA of the head neck were nonacute Awaiting MRI of the brain ESR and CRP however results must be used with caution due to her chronic diseaseand the fact that she did get steroids Would recommend trying to get back on CPAP as an outpatient and treating her sleep apnea she was counseled on the increased risk of stroke heart attack and sudden with untreated sleep apnea. Aggressive diet exercise weight loss measures Will leave the treatment of lupus to the primary service Work with physical therapy We will decide the neck step in treatment once her MRI is complete This was all discussed with the patient and family all questions were answered they agreed with the treatment plan. Code(s): R41.82 - Altered mental status, unspecified Status: Acute (2) Acute UTI: Code(s): N39.0 - Urinary tract infection, site not specified Status: Acute (3) Generalized weakness: Code(s): R53.1 - Weakness Status: Acute (4) MONI (obstructive sleep apnea): Code(s): G47.33 - Obstructive sleep apnea (adult) (pediatric) Status: Acute (5) Lupus: Code(s): M32.9 - Systemic lupus erythematosus, unspecified Status: Acute (6) Obesity: Code(s): E66.9 - Obesity, unspecified Status: Acute Documented By: Rachelle Frazier DO 02/08/22 1155 Signed By: <Electronically signed by DO Rachelle Frazier> 02/08/[address] [facility] Work Phone: 1(763) 141-296006-25-2022 History and physical note Author Hussain Cat [facility] February 07, 2022 11:02pm Note Date/Time February 07, 2022 10:2 9pm [facility] [address] [place] [address] Hospitalist H&P Signed Patient: eJsus Wolf MR#: [id number] : 1955 Acct:[id number] Age/Sex: 66 / F Adm Date: 2 Loc: Room: [address] [place] [address] Type : ADM IN Attending Dr: Hussain Cat MD Copies to: DO Hussain Helms MD~ HPI DATE OF EXAMINATION: 02/07/22 CHIEF COMPLAINT: Altered mental status HISTORY OF PRESENT ILLNESS: Ms. Wolf is a 66-year-old female with PMH of multiple medical comorbidities including SLE, diastolic CHF, MONI, HTN, HLD, paroxysmal A. fib, ulcerative colitis, morbid obesity, ascending thoracic aortic aneurysm, [facility]. Patient was reportedly in her normal state of health up until today when she was running errands with her . She reportedly became very weak all of a sudden and then was unable torecognize family members that were next to her. She was brought into the emergency department for further evaluation. Patient reportedly was completely normal yesterday and had no major issues. She has not had any recent changes toher home medications. In the emergency department, patient remained disoriented and thus CT imaging ofthe head, neck, chest with angiogram was obtained. Exam is largely nonfocal however. There were no acute findings essentially. Urinalysis is consistent with UTI. She was recommended for admission to the hospitalist service as a result. Case was discussed between myself and ED attending and patient was admitted to hospitalist service for further management. Review of Systems Review of Systems Review of systems: 10 point ROS reviewed and is negative except for that which is noted above in HPI PMFSH Vaccinated for COVID-19?: Yes Medical History (Updated 02/07/22 @ 17:25 by Chapincito Barraza MD) Atrial fibrillation CHF (congestive heart failure) Colitis DJD (degenerative joint disease) Edema Enthesopathy of ankle and tarsus Fibromyalgia Hallux valgus (acquired) Hammer toe Hypertension Lesion of plantar nerve Lupus Membranous glomerulonephritis Morbid obesity Neuralgia, neuritis, and radiculitis, unspecified Osteoarthritis Proteinuria SLE (systemic lupus erythematosus related syndrome) Sleep apnea Synovitis and tenosynovitis Varicose vein of leg Vitamin D deficiency Vocal cord edema Surgical History History of appendectomy S/P ablation of atrial fibrillation S/P ablation of atrial flutter SEP 01, 2019 Family History Other HTN (hypertension) Social History Smoking Status: Never smoker Substance Use Type: None Meds Medications and Allergies Allergies dofetilide Allergy (Verified 02/07/22 11:46) Anaphylaxis prochlorperazine [From Compazine] Allergy (Verified 02/07/22 11:46) Unknown Reaction Sulfa (Sulfonamide Antibiotics) Allergy (Verified 02/07/22 11:46) Anaphylaxis tetanus and diphtheria toxoids Allergy (Verified 02/07/22 11:46) Redness of Skin codeine Adverse Reaction (Verified 02/07/22 11:46) Headache epinephrine Adverse Reaction (Verified 02/07/22 11:46) Palpitations Iodinated Contrast Media Adverse Reaction (Verified 02/07/22 11:46) [place] Home Medications atorvastatin 40 mg tablet 40 mg PO DAILY 04/03/19 [History Confirmed 02/07/22] cholecalciferol (vitamin D3) 50 mcg (2,000 unit) tablet 2,000 unit PO DAILY 04/03/19 [History Confirmed 02/07/22] hydroxychloroquine 200 mg tablet 200 mg PO BID 04/03/19 [History Confirmed 02/07/22] oqmefogs-pvb-qilld acid 0.4 mg-lycopene 300 mcg-lutein 250 mcg tablet (Centrum Silver) 1 tab PO DAILY 04/03/19 [History Confirmed 02/07/22] mycophenolate mofetil 500 mg tablet 1,000 mg PO HS 04/03/19 [History Confirmed 02/07/22] venlafaxine 150 mg capsule,extended release 24 hr 150 mg PO QHS 04/03/19 [History Confirmed 02/07/22] vitamin B complex (B Complex 1) 100 mg PO DAILY 04/03/19 [History Confirmed 02/07/22] apixaban 5 mg tablet (Eliquis) 5 mg PO BID 05/08/19 [History Confirmed 02/07/22] celecoxib 200 mg capsule 200 mg PO DAILY 06/19/19 [History Confirmed 02/07/22] mesalamine 1.2 gram tablet,delayed release (Lialda) 1.2 g PO QID 06/19/19 [History Confirmed 02/07/22] belimumab 120 mg intravenous solution 10 mg/kg IV DIRECTED 09/18/19 [History Confirmed 02/07/22] metoprolol succinate 100 mg tablet,extended release 24 hr 50 mg PO BID 09/18/19 [History Confirmed 02/07/22] furosemide 40 mg tablet 40 mg PO DAILY.8A 30 Days #30 tab 09/30/19 [Rx Confirmed 02/07/22] spironolactone 50 mg tablet 50 mg PO DAILY 30 Days #30 tab 09/30/19 [Rx Confirmed 02/07/22] Bifidobacterium infantis 4 mg capsule (Align) 4 mg PO DAILY 02/07/22 [History Confirmed 02/07/22] buspirone 10 mg tablet 10 mg PO QHS 02/07/22 [History Confirmed 02/07/22] cholestyramine-aspartame 4 gram oral powder 4 g PO BID 02/07/22 [History Confirmed 02/07/22] ferrous sulfate 325 mg (65 mg iron) tablet 325 mg PO DAILY 02/07/22 [History Confirmed 02/07/22] levothyroxine 75 mcg tablet 75 mcg PO DAILY 02/07/22 [History Confirmed 02/07/22] pantoprazole 40 mg tablet,delayed release 40 mg PO DAILY 02/07/22 [History Confirmed 02/07/22] sucralfate 100 mg/mL oral suspension (Carafate) 10 ml PO QID 02/07/22 [History Confirmed 02/07/22] Exam Physical Exam Vital Signs: Temp Pulse Resp BP Pulse Ox 97.6 F 69 18 160/89 H 97 02/07/22 20:42 02/07/22 20:42 02/07/22 20:42 02/07/22 20:42 02/07/22 20:42 Narrative: Constitutional: Elderly WF, resting in bed in no acute distress HEENT: Moist mucous membranes, neck supple, no JVD Cardiovascular: RRR, no M/R/G, normal S1 and S2 Respiratory: Clear to auscultation bilaterally, no wheezes, rales or rhonchi GI: Soft, obese abdomen, tender to palpation in the right upper and lower quadrants. No rebound tenderness or guarding : Deferred Extremities: No clubbing, cyanosis or edema Neuro: Awake and alert on my assessment. She is alert and oriented to person atthe time of my assessment. Patient is sleepy and slow to respond to questions, But answers all questions appropriately. Patient is able to move all extremities, but reports having difficulty keeping her leg elevated against gravity. 3+/5 strength in all extremities Skin: No rashes or lesions noted upon anterior inspection Psych: Calm, cooperative and conversant Results Lab Results Labs: Laboratory Last Values Corrected WBC 11.3 X10E3/uL (3.8-11.6) 02/07/22 14:23 Uncorrected WBC Count 11.3 x10E3/uL (4.5-11.0) H 02/07/22 14:23 RBC 4.21 x10E6/uL (3.60-5.00) 02/07/22 14:23 Hgb 13.6 g/dL (11.8-15.4) 02/07/22 14:23 Hct 40.9 % (34.0-46.4) 02/07/22 14:23 MCV 97.0 fl (80-100) 02/07/22 14:23 MCH 32.4 pg (24.7-34.3) 02/07/22 14:23 MCHC 33.4 g/dL (32.0-35.0) 02/07/22 14:23 RDW 13.0 % (11.9-15.3) 02/07/22 14:23 Plt Count 273 x10E3/uL (150-450) 02/07/22 14:23 MPV 8.5 fl (6.3-10.7) 02/07/22 14:23 Neut % (Auto) 66.6 % (.) 02/07/22 14:23 Lymph % (Auto) 18.9 % (.) 02/07/22 14:23 Brooke % (Auto) 12.2 % (.) 02/07/22 14:23 Eos % (Auto) 1.8 % (.) 02/07/22 14:23 Baso % (Auto) 0.5 % (.) 02/07/22 14:23 Neut # (Auto) 7.5 x10E3/uL (1.8-7.7) 02/07/22 14:23 Lymph # (Auto) 2.1 x10E3/uL (1.00-4.8) 02/07/22 14:23 Brooke # (Auto) 1.4 x10E3/uL (0.0-0.8) H 02/07/22 14:23 Eos # (Auto) 0.2 x10E3/uL (0.0-0.45) 02/07/22 14:23 Baso # (Auto) 0.1 x10E3/uL (0.0-0.2) 02/07/22 14:23 Nucleated RBC % (auto) 0.0 % (0-0.5) 02/07/22 14:23 PT 16.3 Seconds (9.0-12.9) H 02/07/22 14:23 INR 1.4 02/07/22 14:23 APTT 35.5 Seconds (25.1-36.5) 02/07/22 14:23 APTT Cancelled 02/07/22 14:23 PHA Creatinine Clear 70.36 02/07/22 14:23 Sodium 139 mmol/L (136-146) 02/07/22 14:23 Potassium 5.1 mmol/L (3.5-5.1) 02/07/22 14:23 Chloride 105 mmol/L (95-114) 02/07/22 14:23 Carbon Dioxide 22.4 mmol/L (22.0-30.0) 02/07/22 14:23 BUN 22 mg/dL (9-23) 02/07/22 14:23 Creatinine 1.03 mg/dL (0.44-1.03) 02/07/22 14:23 POC Creatinine 1.0 mg/dl (0.6-1.3) 02/07/22 14:34 POC eGFR Amer > 60 02/07/22 14:34 POC eGFR Non-Afric Amer 56 02/07/22 14:34 Est GFR ( Amer) > 60 mL/Min 02/07/22 14:23 Est GFR (Non-Af Amer) 54 mL/Min 02/07/22 14:23 Glucose 83 mg/dL (70-100) 02/07/22 14:23 Calcium 10.8 mg/dL (8.2-10.2) H 02/07/22 14:23 Total Creatine Kinase 154 U/L (22-269) 02/07/22 14:23 CK-MB (CK-2) 2.2 ng/mL (0.6-6.3) 02/07/22 14:23 CK-MB (CK-2) Rel Index 1.4 % (0.00-2.50) 02/07/22 14:23 Troponin I High Sens 16 pg/mL (0-15) H 02/07/22 14:23 B-Natriuretic Peptide 77.0 pg/mL (5-100) 02/07/22 14:23 Urine Color Dark yellow (Yellow) A 02/07/22 16:29 Urine Appearance Clear (Clear) 02/07/22 16:29 Urine pH 5.0 (5.0-9.0) 02/07/22 16:29 Ur Specific [place] 1.049 (1.001-1.030) H 02/07/22 16:29 Urine Protein Negative mg/dL (Negative) 02/07/22 16:29 Urine Glucose (UA) Normal mg/dL (Normal) 02/07/22 16:29 Urine Ketones Negative (Negative) 02/07/22 16:29 Urine Occult Blood Negative (Negative) 02/07/22 16:29 Urine Nitrite Positive (Negative) H 02/07/22 16:29 Urine Bilirubin Negative (Negative) 02/07/22 16:29 Urine Urobilinogen Normal mg/dL (Normal) 02/07/22 16:29 Ur Leukocyte Esterase 2+ (Negative) H 02/07/22 16:29 Urine RBC 0-1 /HPF (0-4) 02/07/22 16:29 Urine WBC 3-4 /HPF (0-4) 02/07/22 16:29 Ur Squamous Epith Cells 5-9 /HPF (0-2) H 02/07/22 16:29 Ur Renal Epithelial Cell 1-2 /HPF (0-1) H 02/07/22 16:29 Urine Bacteria 2+ (None Seen) H 02/07/22 16:29 Hyaline Casts 0-8 /LPF (0-8) 02/07/22 16:29 COVID-19 PCR Interp N/A 02/07/22 16:46 COVID-19 Clin Com Negative (Negative) 02/07/22 16:46 SARS Antigen (LFIA) Negative (Negative) 02/07/22 16:46 Microbiology Results Micro: Microbiology - Results from entire visit 02/07/22 16:46 Nasal SARS Antigen (LFIA) - Final A&P - Hospitalist Assessment/Plan (1) Acute alteration in mental status: (2) Acute UTI: Plan Ms. Wolf is a 66-year-old female with PMH of multiple medical comorbidities including SLE, diastolic CHF, MONI, HTN, HLD, paroxysmal A. fib, ulcerative colitis, morbid obesity, ascending thoracic aortic aneurysm, who presents to theemergency department with altered mental status. Given patient's symptoms acuteonset, will plan for stroke work-up including MRI brain, neurology consult, metabolic work-up including TSH, B12, vitamin D. Continue home meds for now. Start IV ceftriaxone for UTI. Code STATUS: Full code. Documented By: Hussain Cat MD 2 [id number] Signed By: <Electronically signed by Hussain Cat MD> 02/07/22 230 [facility] Work Phone: [phone]) 407-761406-22-2022 Miscellaneous Notes* Telephone Encounter - Bang Spears RN - 02/05/2022 1:27 PM EDT Pt's daughter, Lesia, has been notified multiple times by the team recently and up to date on POC. Please review her chart. Bang Spears RN documented in this encounterAd[facility]06-[facility]-2022 Miscellaneous Notes* Telephone Encounter - Irene Sahu PA-C - 01/28/2022 10:27 AM EDT Prescription refill approved on January 28, 2022 and routed to pharmacy to be filled Irene Sahu PA-C documented in this encounterAd[facility]06-09-2022 Miscellaneous Notes* Telephone Encounter - Jesus Moon MA - 01/23/2022 11:19 AM EDT Patient phones requesting refills as follows: Pending Prescriptions Disp Refills PANTOPRAZOLE 40 MG TABLET,DELAYED RELEASE 60 tablet 3 Sig: Take 1 tablet by mouth twice daily. NIKITA: No Please review and advise. Jesus Moon MA documented in this encounterAd[facility]05-16-2022 Miscellaneous Notes* Telephone Encounter - Sravani Quinteros LPN - 12/30/2021 11:05 AM EDT Pt requesting refills on the following medication. Please file if appropriate. documented in this encounterAd[facility]04-25-2022 History of Present illness Narrative* JOSEPH Garcia - 12/09/2021 2:30 PM EDT Images from the original note were not included. Rheumatology Outpatient Clinic New Patient To [place] Date of Service: 12/09/2021 Patient: Jesus Wolf Medical Record: [id number] Primary Care Physician: Wojciech Treviño MD Last Rheumatology visit: 05/16/2021 (with Evelin Hardin) SUBJECTIVE HISTORY OF PRESENT ILLNESS Current Medications Hydroxychloroquine Mycophenolate mofetil Belimumab SLE and membraneous nephropathy. Failed cyclosporine. Started MMF 06/26, Benlysta 09/28 every monththen starting in February 2012 started every two months Jun 2012. Aug 2013 Benlysta moved to every 3 months. Also on Plaquenil and cellcept 1g BID. August 2018 cellcept was decreased to 1500 mg daily because of recurrent URI . March 2020 admitted with CHF A. fib on Eliquis DX 1998 ulcerative colitis on mesalamine therapy Has pancreatitis and IPMN. Takes prednisone before benlysta because of burning eye symptoms with Benlysta , no anaphylaxis Had GI evaluation and general surgery and thought the pancreatitis thought to be to gall bladder stone Had eye exam in Sep 2020 and was normal INTERVAL HISTORY Jesus Wolf is a 66 year old White female with a PMH of osteoarthritis, obesity, hyperlipidemia, thoracic ascending aneurysm, hypothyroidism, vocal cord edema, sleep apnea, hypertension, vitaminD deficiency, fibromyalgia who presents on 12/09/2021 for an in-person visit for follow-up of SLE. Patient states that she has been doing pretty good since her last visit. She does state she has been having a lot of URIs, her PCP manages them. She is a few weeks over due for the belimumab infusion she is getting today because she had a URI when she was due to we pushed it out a few weeks. She endorses joint pain at all of her joints. She does notice a difference when she gets her infusions. She remains on 1000mg mycophenolate mofetil a day and 400mg hydroxychloroquine a day. States she had her OCT updated in September with Dr. Denis Bill at [facility]. Ulcerative colitis doing well but she did have stomach ulcers in October. She also discovered that she had an aortic aneurysm that is 4.7 Current Medications. She is establishing with a new clinical nurse specialist soon. She does not follow with nephrology. Review of Systems for autoimmune rheumatic diseases (Lupus/MCTD/PSS) (+)Fatigue (-)Fever (-)Rash (+)Photosensitivity (-)Alopecia (-)Mucosal Ulcers (-)Sicca symptoms (-)Raynaud's (-)Lymphadenopathy (-)GERD- takes (+)Bowel:(diarrhea/constipation) (-)Cognitive difficulties (-)Seizure (+)Emotional problems (-)Visual Disturbances (-)Headache (-)CVA (-)Vasculitis (-)Arthritis (+)Arthralgias- all joints (-)Myalgias (-)Hematuria (-)Proteinuria (-)Pleurisy- has CHF (-)Pericarditis (-)Thrombocytopenia (-)Chest pain (+)Trouble breathing/SOB- has CHF (-)Leukopenia (-)Thrombotic events (-)Miscarriages Obstetrics history A0 Rheum/Ortho Arthrocentesis Injections (last 5) Some values may be hidden. Unless noted otherwise, only the newest values recorded on each date aredisplayed. Injection History 04/26/20 12/18/20 04/12/21 Medication 40 mg triamcinolone acetonide 40 mg/mL bupivacaine-dextrose 0.75 % (7.5 mg/mL) injection(SENSORCAINE MPF SPINAL), 2 mL midazolam (PF) injection (VERSED), 2 mg 6 mg betamethasone acetate-betamethasone sodium phosphate 6mg/mL Location hip hip Hip Site R hip joint R greater trochanteric bursa Some values recorded on this date have been omitted. Current Outpatient Medications on File Prior to Visit Medication Sig ferrous sulfate (IRON) 325 mg (65 mg iron) tablet Take 1 tablet by mouth once daily. apixaban (ELIQUIS) 5 mg tab(s) Take 1 tablet by mouth twice daily. cholestyramine-sucrose (QUESTRAN) 4 gram powder Take 4 g by mouth twice daily with meals. sucralfate (CARAFATE) 100 mg/mL suspension Take 10 mL by mouth four times daily. Mesalamine (LIALDA) 1.2 gram EC tablet Take 4 tablets by mouth once daily. atorvastatin (LIPITOR) 40 mg tablet Take 1 tablet by mouth once daily. pantoprazole DR (PROTONIX) 40 mg tablet Take 1 tablet by mouth twice daily. metoprolol succinate ER (TOPROL XL) 50 mg 24 hr tablet 50mg in am and 100mg in pm. iv contrast (will be provided with radiology test) MRI PANC/JEANIE Inject, intravenously, once for 1 dose. No IV access, insert saline lock prior to the beginning of sedation, infusion, injection of imaging exam. Discontinue saline lock post exam. If Pt. has a central line or IVAD, may access for administration according to line specific nursing protocol. Once exam is complete flush line and de-access according to line specific nursing protocol in the MR contrast administration guidelines link. mycophenolate Mofetil (CELLCEPT) 500 mg tablet take 2 tablets by mouth daily methylPREDNISolone (MEDROL DOSE-PACK) 4 mg Dose-Pack As Instructed per package (Patient not taking:Reported on 09/13/2021 ) Amoxicillin 500 mg tablet Take 4 tablets by mouth 1 hour prior to procedure and 2 tablets by mouth 6 hours after procedure hydrOXYchloroQUINE (PLAQUENIL) 200 mg tablet take 1 tablet by mouth twice a day take with food or milk NEEDS LABS Bifidobacterium infantis (ALIGN ORAL) Take by mouth once daily. belimumab (BENLYSTA INTRAVENOUS) Inject intravenously. Patient reports she receives infusion every 3 months venlafaxine ER (EFFEXOR XR) 150 mg 24 hr capsule Take 1 capsule by mouth once daily. levothyroxine (SYNTHROID) 75 mcg tablet Take 75 mcg by mouth once daily. PREDNISONE ORAL Pt states only taking medication before infusions. furosemide (LASIX) 40 mg tablet Take 20 mg by mouth once daily. busPIRone (BUSPAR) 10 mg tablet Take 10 mg by mouth daily at bedtime. spironolactone (ALDACTONE) 50 mg tablet Take 50 mg by mouth once daily. Cholecalciferol, Vitamin D3, 2,000 unit cap Take by mouth once daily. CALCIUM CARBONATE/VITAMIN D3 (CALCIUM 600 + D ORAL) Take by mouth once daily. vitamin b complex(B COMPLEX TAB) one daily multivitamins w-minerals/lut(CENTRUM SILVER TAB) Take one(1) tablet daily. Current Facility-Administered Medications on File Prior to Visit Medication perflutren lipid microspheres 1.3 mL in NaCl (PF) 0.9% 10 mL injection (DEFINITY) sodium chloride 0.9 % (flush) 10 mL (BD POSIFLUSH) Last Ophthalmology Check for Plaquenil (Hydroxychloroquine) Last OCT Macula Exam No resulted procedures found. Last Visual Field Exam No resulted procedures found. ROS Review of Systems CONSTITUTION: Negative for: Fever and Recent weight change HEENT: Negative for: Nosebleeds, Mouth sores, Trouble swallowing and Dry mouth RESPIRATORY: Positive for: Shortness of breath Negative for: Cough and Pain with breathing GASTROINTESTINAL: Positive for: Diarrhea Negative for: Melena and Heartburn MUSCULOSKELETAL: Positive for: Arthralgias, Myalgias, Muscle weakness, Joint swelling and Morning Joint Stiffness NEUROLOGICAL: Negative for: Headaches, Numbness and Memory loss SKIN: Negative for: Rash, Skin changes, Hair loss and Nail changes EYES: Negative for: Eye pain, Eye redness, Eye dryness and visual disturbance CARDIOVASCULAR: Negative for: Chest pain and Leg swelling GENITOURINARY: Negative for: Dysuria and Hematuria HEMATOLOGIC/LYMPHATIC: Negative for: Swollen glands All other reviewed and negative other than HPI. PAST MEDICAL HISTORY Diagnosis Date Arrhythmia Atrial fibrillation (HCC) on coumadin Herniated intervertebral disk HTN (hypertension) Hyperlipemia Kidney disease MONI (obstructive sleep apnea) no longer using CPAP since 60 lb weight loss Other acute pancreatitis with uninfected necrosis SLE (systemic lupus erythematosus) (HCC) Sleep apnea 07/29/2012 PAST SURGICAL HISTORY Procedure Laterality Date APPENDECTOMY CARPAL TUNNEL RIGHT WRIST surgical correction COLONOSCOPY 05/10/2019 [facility] COLONOSCOPY GEN ANES 07/23/2020 Dr. Reinoso/Diverticulosis/Hemorrhoids/ Ulcerative Colitis/Rpt in 2 yrs. EGD EUS 01/11/2020 [facility] LASIK Right prior to 1999 MRI PANC/JEANIE WO/W IVCON 12/20/2019 OVARIAN CYSTECTOMY PAST SURGICAL HISTORY OF 07/2013 bilateral foot procedure, [place] PAST SURGICAL HISTORY OF 2018,2019 Ablation X2 TONSILLECTOMY HX FAMILY HISTORY Problem Relation Age of Onset Alzheimer's Disease Father Hypertension Father Cataract Mother Hypertension Mother Colon Cancer Mother Cataract Sister Hypertension Sister Colon Cancer Paternal Uncle Social History Tobacco Use Smoking status: Never Smoker Smokeless tobacco: Never Used Vaping Use Vaping Use: Never used Substance Use Topics Alcohol use: Yes Comment: very rare Drug use: No PAIN EVALUATION No data found in the last 1 encounters. PROMIS Assessments PROMIS Assessments 10/02/2020 11/12/202111/13/2021 Physical Health Percentile - - 7 % Mental Health Percentile - - 26 % Pain Score 3 - 3 Pain Interference Percentile 12 % 12 % - Fatigue Percentile 18 % 18 % - Physical Function Percentile 12 % 10 % - RAPID 3 [place] Activities of Daily Living No Data Dress self? - Get in and out of bed? - Walk outdoors? - Wash and dry body? - Get in and out of car? - RAPID 3 Disease Activity Weighed Score Levels: 0 - 1: Near Remission 1.3 - 2.0: Low Severity 2.3 - 4.0: Moderate Severity 4.3 - 10.0: High Severity RAPID-3 Weighed Score 12/14/2018 08/24/2019 10/21/2019 RAPID 3 Weighed Score 4.9 4.9 4.7 OBJECTIVE There were no vitals taken for this visit. Physical Exam Constitutional: General: She is not in acute distress. Appearance: Normal appearance. She is obese. She is not ill-appearing, toxic- appearing or diaphoretic. HENT: Head: Normocephalic and atraumatic. Eyes: Extraocular Movements: Extraocular movements intact. Conjunctiva/sclera: Conjunctivae normal. Cardiovascular: Rate and Rhythm: Normal rate and regular rhythm. Heart sounds: Normal heart sounds. No murmur heard. No friction rub. No gallop. Pulmonary: Effort: Pulmonary effort is normal. No respiratory distress. Breath sounds: Normal breath sounds. No stridor. No wheezing, rhonchi or rales. Musculoskeletal: General: Tenderness present. No swelling. Normal range of motion. Right elbow: Normal. Left elbow: Normal. Right wrist: Tenderness present. No swelling or deformity. Normal range of motion. Left wrist: Tenderness present. No swelling or deformity. Normal range of motion. Right hand: Tenderness present. No swelling or deformity. Normal range of motion. Left hand: Tenderness present. No swelling or deformity. Normal range of motion. Right knee: Normal. Left knee: Normal. Right lower leg: Edema present. Left lower leg: Edema present. Right ankle: Swelling (edema) present. No tenderness. Normal range of motion. Left ankle: Swelling present. Deformity: edema. No tenderness. Normal range of motion. Skin: General: Skin is warm and dry. Findings: No rash. Comments: Hyperpigmentation of lower legs Neurological: Mental Status: She is alert and oriented to person, place, and time. Psychiatric: Mood and Affect: Mood normal. Weight 10/29/2021 09/13/2021 05/16/2021 04/03/2021 03/05/2021 WEIGHT 253 lb 6.4 oz 255 lb 267 lb 3.2 oz 261 lb 260 lb 6.4 oz Some recent data might be hidden Blood Pressure 10/29/2021 10/25/2021 09/13/2021 09/12/2021 09/12/2021 Systolic 131 129 120 118 144 Diastolic 48 58 59 57 64 Some recent data might be hidden LABS CBC Latest Ref Rng & Units 12/21/2020 03/25/2021 05/16/2021 WBC 3.70 - 11.00 k/uL 10.32 7.76 7.08 HEMOGLOBIN 11.5 - 15.5 g/dL 9.6(L) 15.0 14.0 HEMATOCRIT 36.0 - 46.0 % 30.4(L) 46.0 43.2 PLATELETS 150 - 400 k/uL 154 273 272 ABS NEUT (ANC) 1.45 - 7.50 k/uL - 5.14 3.75 ABS LYMPH 1.00 - 4.00 k/uL - 1.54 2.22 CMP Latest Ref Rng & Units 12/21/2020 03/25/2021 05/16/2021 SODIUM 136 - 144 mmol/L 130(L) 142 141 POTASSIUM 3.7 - 5.1 mmol/L 4.6 3.8 4.4 CHLORIDE 97 - 105 mmol/L 98 106(H) 107(H) CO2 22 - 30 mmol/L 25 24 25 GLUCOSE 74 - 99 mg/dL 132(H) 54(L) 84 BUN 7 - 21 mg/dL 15 22(H) 14 CREATININE 0.58 - 0.96 mg/dL 0.77 0.88 0.84 CALCIUM, TOTAL 8.5 - 10.2 mg/dL 9.6 10.5(H) 10.3(H) AST 13 - 35 U/L - 21 30 ALT 7 - 38 U/L - 24 27 ALKALINE PHOSPHATASE 34 - 123 U/L - 151(H) 130(H) ESR, WSR Latest Ref Rng & Units 06/25/2020 10/04/2020 05/16/2021 WSR 0 - 20 mm/hr 12 2 5 CRP Latest Ref Rng & Units 06/25/2020 10/04/2020 05/16/2021 CRP <0.9 mg/dL 0.3 <0.3 0.5 C3, C4 Latest Ref Rng & Units 04/02/2020 03/25/2021 05/16/2021 C3 86 - 166 mg/dL 140 149 160 C4 13 - 46 mg/dL 29 32 34 CK Latest Ref Rng & Units 07/14/2012 11/22/2013 CK 30 - 220 U/L 212 215 Hepatitis Screen Latest Ref Rng & Units 02/21/2010 12/18/2015 06/25/2020 HEPBCOTOL Negative Negative Negative Negative HEPSABQ Negative Negative Negative Negative HEPCABEIA Negative Negative Negative - HBSAG Negative - - Negative HBSAGR Negative Negative Negative - TB Screen Latest Ref Rng & Units 06/25/2020 TBGINT - No evidence of current or previous infection with Mycobacterium tuberculosis. TBGRES Negative Negative Antibodies Latest Ref Rng & Units 12/06/2020 03/25/2021 05/16/2021 DNA ANTIBODY <30 IU/mL - - - DNA ANTIBODY W/CONFIRMATION <30 IU/mL - <12 <12 NEWSCAST DIRECTOR ANTIBODY <1.0 AI - - - SSA ANTIBODY <1.0 AI - - - SSB ANTIBODY <1.0 AI - - - NALINI 1 ANTIBODY <1.0 AI - - - RIBOSOMAL NEWSCAST DIRECTOR <1.0 AI - - - SM ANTIBODY <1.0 AI - - - SCLERODERMA AB, IGG <1.0 AI - - - CENTROMERE AB <1.0 AI - - - CHROMATIN ANTIBODY <1.0 AI - - - PT SEC 9.7 - 13.0 sec 11.0 - - PT INR 0.9 - 1.3 1.0 - - CARDIOLIPIN AB, IGG 0 - 9 GPL - - - CARDIOLIPIN AB, IGM 0 - 11 MPL - - - CARDIOLIPIN AB, IGA 0 - 11 APL - - - Urinalysis Latest Ref Rng & Units 12/13/2020 03/25/2021 05/16/2021 PROTEIN, URINE Negative Negative Unable to assay. Specimen too old to perform test.(A) Negative RBC, URINE 0 - 3 /HPF 0-3 - 0-3 PROTEIN/CREATININE RATIO <0.2 - - Unable to calculate because one or more components used in calculation is outside assay range. TPMT amd G6PD Latest Ref Rng & Units 06/25/2020 TPMT ACTIVITY 24.0 - 44.0 U/mL 29.5 IMAGING DXA 09/02/2017 IMPRESSION: THE LOWEST T-SCORE IS -1.6 DIAGNOSIS: Osteopenia XR Left Foot 05/04/2019 IMPRESSION: No acute osseous abnormality. Severe degenerative changes at the second through fourth tarsometatarsal joints. Hallux valgus and pes planus. XR Left Shoulder 04/26/2020 IMPRESSION: Mild degenerative change left shoulder XR Right Hip 11/29/2020 IMPRESSION: SEVERE RIGHT HIP DEGENERATIVE CHANGE XR Right Hip 01/04/2021 IMPRESSION: EXPECTED POSTOPERATIVE APPEARANCE ASSESSMENT & PLAN Jesus Wolf is a 66 year old White female who presents on 12/09/2021 for an in-person visit forfollow-up of SLE. Patient is stable. Continues to endorse joint pain, joint exam normal. Likely haspain secondary to fibromyalgia on top of lupus. Reports that she does get regular URIs that are managed by her PCP, infusions held in time of infection. She was recently diagnosed with a 4.7cm aorticaneurysm, she also had multiple peptid ulcers in October, ulcerative colitis remains quiet. PLAN: 1. Systemic lupus erythematosus, unspecified SLE type, unspecified organ involvement status (HCC) -ICD9: 710.0, ICD10: M32.9 (primary diagnosis) - CBC + DIFF - COMP METABOLIC PANEL - C-REACTIVE PROTEIN (CRP) - SED RATE WESTERGREN - DNA AB DS + CONF BLD - C3 COMPLEMENT BLD - C4 COMPLEMENT BLD - URINALYSIS, WITH MICROSCOPIC - PROTEIN CREATININE RATIO - continue current medications 2. High risk medication use - ICD9: V58.69, ICD10: Z79.899 - CBC + DIFF - COMP METABOLIC PANEL - C-REACTIVE PROTEIN (CRP) - SED RATE WESTERGREN - DNA AB DS + CONF BLD - C3 COMPLEMENT BLD - C4 COMPLEMENT BLD - URINALYSIS, WITH MICROSCOPIC - PROTEIN CREATININE RATIO 3. Long-term use of Plaquenil - ICD9: V58.69, ICD10: Z79.899 - OCT needs to be updated Follow-up with Dr. Hardni is schedule for [facility] Date: December 07, 2021 I spent a total of 45 minutes on the date of the service which included preparing to see the patient, [id number] patient care, completing clinical documentation, obtaining and/or reviewing separately obtained history, performing a medically appropriate examination, counseling and educating the pat ient/family/caregiver and ordering medications, tests, or procedures. Medical Decision Making: Problems: Low: Stable chronic illness Risk: Moderate: Moderate risk from testing/treatment Medical Decision Making Level: 3 - Low documented in [facility]Ad[facility] History of Present illness Narrative* Ramesh Hathaway RN - 12/09/2021 12:36 PM EDT Infusion Charting Note: Pt ID by name and birthdate. yes Since the last infusion has patient: Had any major changes to health since last infusion? no Been to the emergency room? no Been Hospitalized? no Had any infections? Yes (resolved) Taken any antibiotics? Yes (finished) Had surgery or has upcoming surgery? no In the past 7 days has patient had: Fever/chills/night sweats? no New cough or cold symptoms (including sore throat)? no Nausea, vomiting, diarrhea? no Unusual swelling in ankles or feet? no Burning/blood with urination or had urinary frequency? no New weakness, numbness, stumbling, or falls? no A new rash or open sores? no Medication allergy reviewed and verified: yes. Ramesh Hathaway RN NOTE: BENLYSTA INFUSES OVER 2 HOURS FOR THIS PT. documented in this encounterAd[facility]04-04-2022 Miscellaneous Notes* Telephone Encounter - Jesus Moon MA - 11/18/2021 10:03 AM EDT , Medication pended. Please file if appropriate. Thanks documented in this encounterAd[facility]01-27-2022 History and physical note * Dione Reinoso MD - 09/12/2021 7:30 AM EST UPDATED HISTORY AND PHYSICAL EXAMINATION SERVICE DATE: 09/12/2021 SERVICE TIME: 7:39 AM PHYSICAL EXAM MUST BE COMPLETED ON ADMISSION The History and Physical (completed in the past 30 days) has been reviewed and the patient has beenexamined. The contents accurately reflect the patient's condition with the following additions or revisions since the H&P was completed. ASA Class: Examination indicates no changes. AIRWAY: LUNGS: Lungs clear to auscultation, Good diaphragmatic excursion CARDIAC: Normal S1 and S2; no rubs, murmurs, or gallops Provisional Diagnosis/Treatment Plan: proceed with egd and colonoscopy for diarrhea abdominal pain and UC This H&P can be found in the attached. SIGNATURE: Dione Reinoso MD PATIENT NAME: Jesus Wolf DATE: September 12, 2021 TIME: 7:39 AM PAGER: documented in this encounterAd[facility]08-25-2021 NoteHNO ID: [id number] Author: Mira Holliday RDMS Service: ? Author Type: Shirt Presser Type: Progress Notes Filed: 04/10/2021 6:53 AM Note Text: Radiology Service Progress Note PATIENT NAME: Jesus Wolf DATE OF SERVICE: April 10, 2021 TIME: 6:53 AM PATIENT IDENTITY VERIFICATION COMPLETED USING TWO (2) IDENTIFIERS: Name and Date of confirmed by patient verbally. FALL SCREENING: Has the patient had 2 falls in the last year or 1 fall with injury or currently using an Ambulatory Assistive Device (Walker, Cane, Wheelchair, Crutches, etc.)? No PATIENT GENDER DATA: Female. status: : No status: N/A PATIENT RELEVANT IMPLANT DATA REVIEWED: Not Applicable RADIOLOGY DEPARTMENT: Ultrasound PERIPHERAL IV DATA: Not applicable SIGNED BY: Mira Holliday RDMS April 10, 2021 6:53 AMBrigham City Community [id number] NoteHNO ID: [id number] Author: Helene Vaughan PA-C Service: ? Author Type: Physician Wire Communications Engineer Type: Progress Notes Filed: 12/21/2020 9:32 AM Note Text: ORTHOPAEDIC POSTOP PROGRESS NOTE SERVICE DATE: 12/21/2020 SERVICE TIME: 9:30 AM Subjective Patient states that they are comfortable Well Controlled hip pain. Moderate incisional pain. Objective VITAL SIGNS: BP 119/69 Pulse 85 Temp 36.4 ?C (97.5 ?F) Resp 17 Ht 170.2 cm (5' 7 ) Wt 117.9 kg (260 lb) SpO2 95% BMI 40.72 kg/m? INTAKE AND OUTPUT: Intake/Output Summary (Last 24 hours) at 12/21/2020 0930 Last data filed at 12/21/2020 0810 Gross per 24 hour Intake 3240 ml Output 2100 ml Net 1140 ml PHYSICAL EXAMINATION: Right Lower Extremity: Dorsalis pedis pulses palpable. Dorsi flexion 5/5. Plantar flexion 5/5. Extensor hallucis extension: 5/5. Sensory intact to light touch L1-S1. Dressing clean, dry and intact. Surgical site no drainage. Problem Review and Assessment: Patient breathless from severe right inner thigh pain last night (12/20/20). Taken for [place] duplex which was negative. Pt states pain is better today, breathing normally LABS: Recent Labs 12/21/20 0307 12/20/20 0315 HB 9.6* 10.4* HCT 30.4* 33.3* DATA: Diagnostic tests reviewed for today's visit: Most recent labs Assessment/Plan S/P Procedure(s) (LRB): ARTHROPLASTY REPLACE JOINT TOTAL HIP (Right) on 12/18/2020 POSTOP PLAN: Physical Therapy evaluation DVT prophylaxis: Graduated compression stockings (GCS) and restarting eliquis Pain control Case Management for discharge planning ACTIVE PROBLEM LIST Edema Proteinuria Essential Hypertension Atrial Fibrillation (Hcc) Membranous Glomerulonephritis Vitamin D Deficiency Sle (Systemic Lupus Erythematosus) (Hcc) Fibromyalgia Sleep Apnea Encounter for Long-Term (Current) Use of Other High-Risk Medications Osteoarthritis of ankle and foot HALLUX VALGUS ACQUIRED Other Hammer Toe (Acquired) Enthesopathy of Ankle and Tarsus, Unspecified Lesion of Plantar Nerve Neuralgia, Neuritis, and Radiculitis, Unspecified Foot Pain, Left Other Synovitis and Tenosynovitis, Unspecified Ankle and Foot Osteoarthrosis of Ankle and Foot, Left Synovitis of Left Foot Synovitis of Right Foot Vocal Cord Edema Synovitis of Foot Conjunctivitis Keratopathy Obesity, Class III, BMI >= 40 Hypothyroidism Chronic Congestive Heart Failure (Hcc) Status Post Right Hip Replacement S/P Total Hip Arthroplasty Medication and Non-Pharmacologic VTE Prophylaxis/Anticoagulants Anticoagulant AND Antiplatelet Medications (From admission, onward) Comment Start Dose Route Frequency Last Action Ordered Stop 12/19/20 0900 apixaban 5 mg tab(s) (ELIQUIS) (Surgical Risk Categories) 5 mg ORAL 2 TIMES DAILY Given, 12/21 0807 12/18/20 1355 -- 12/18/20 1400 graduated compression stockings ([place]) 12/18/20 1400 graduated compression stockings ([place] 12/18/20 1400 activity - mobilize patient ([place] 12/18/20 1400 activity - mobilize patient ([place] 12/18/20 1400 activity - mobilize patient ([place]) VTE Prophylaxis: VTE prophylaxis appropriate POST OPERATIVE COMPLICATIONS: Complicated by: uneventful/none SIGNATURE: Helene Vaughan PA-C PATIENT NAME: Jesus Wolf DATE: December 21, 2020 TIME: 9:30 AM ETX#[id number] NoteHNO ID: [id number] Author: Hans Beaulieu APRN.CNP Service: Anesthesiology Author Type: Nurse Practitioner Type: Procedures Filed: 12/20/2020 8:02 PM Note Text: BEDSIDE PROCEDURE NOTE PERIPHERAL IV Date/Start Time: 12/20/2020 8:01 PM Performed by: Hans Beaulieu APRN.ASSET PROTECTION DETECTIVE Authorized by: Hans Beaulieu APRN.CNP The risks, benefits and alternatives of the procedure were reviewed with the patient/patient event marketing representative. The patient/patient event marketing representative agreed to proceed. Informed Consent [place] Protocol Pre-Procedure Details: Personnel directly involved with the procedure wore the appropriate PPE. PPE Used: Sterile gloves, mask and goggles The area was prepped with alcohol and allowed to dry. Procedure Details: Indication: Intravenous therapy Needle Size/Type: 20 gauge angiocath Insertion Site: Right arm Imaging Guidance Used: Yes, image not captured Securement: Secured with tape and sterile dressing applied and dated Placement Verification: Blood return, blood return all ports, ultrasound and flushes without difficulty Post-procedure: Patient tolerated the procedure well with no immediate complications Estimated Blood Loss: None Specimens Sent: None SIGNATURE: Hans Beaulieu APRN.JOHNATHAN PATIENT NAME: Jesus Wolf DATE: December 20, 2020 TIME: 8:01 [facility] [place]05-06-2021 NoteHNO ID: [id number] Author: Petra Ovalle APRN.JOHNATHAN Service: Hospital Medicine Author Type: Nurse Practitioner Type: Plan of Care Filed: 12/20/2020 2:15 PM Note Text: Patient drowsy per RN report. Changed to tramadol for pain control. Pain not controlled on 25mg tramadol so dose increased to 50mg q6h. Ambulating with PT and more awake. Petra Ovalle, MSN, ASSET PROTECTION DETECTIVE [facility] [id number] NoteHNO ID: [id number] Author: Marleni Hodges APRN.JOHNATHAN Service: Orthopaedic Surgery Author Type: Nurse Practitioner Type: Progress Notes Filed: 12/20/2020 9:59 AM Note Text: ORTHOPAEDIC POSTOP PROGRESS NOTE SERVICE DATE: 12/20/2020 SERVICE TIME: 9:57 AM Subjective Jesus Wolf is POD2 from Status post right hip replacement. Patient states they are comfortable and were able to obtain rest overnight. Surgical site pain is controlled and they report mild incisional pain. Patient has ambulated with assistance. Patient denies any chest pain or calf pain. Patient has urinated, has passed gas, and has not had a bowel movement. They report they are ready and willing to go Home, with home health. She reports improvement in her nausea and feels comfortable being discharged today, pending sign off from medicine and therapy teams. Objective VITAL SIGNS: BP 99/62 Pulse 74 Temp 36.8 ?C (98.2 ?F) (Oral) Resp 14 Ht 170.2 cm (5' 7 ) Wt 117.9 kg (260 lb) SpO2 92% BMI 40.72 kg/m? INTAKE AND OUTPUT: Intake/Output Summary (Last 24 hours) at 12/20/2020 0957 Last data filed at 12/20/2020 0900 Gross per 24 hour Intake 2480 ml Output 100 ml Net 2380 ml PHYSICAL EXAMINATION: Right Lower Extremity: Dorsalis pedis pulses palpable. Posterior tibial pulses palpable. Dorsi flexion 5/5. Plantar flexion 5/5. Extensor hallucis extension: 5/5. Sensory intact to light touch L1-S1. Dressing clean, dry and intact. Surgical site has no drainage and Aquacell intact and dressing intact. Problem Review and Assessment: Patient monitored, no new events overnight. LABS: Recent Labs 12/20/20 0315 12/19/20 0305 HB 10.4* 10.7* HCT 33.3* 34.4* DATA: Diagnostic tests reviewed for today's visit: Most recent labs Assessment/Plan S/P Procedure(s) (LRB): ARTHROPLASTY REPLACE JOINT TOTAL HIP (Right) on 12/18/2020 POSTOP PLAN: Physical Therapy evaluation Pain control Case Management for discharge planning DVT prophylaxis: Patient home Graduated compression stockings (GCS) and restarting home Eliquis 5mg BID This patient will follow up with Dr. Lovelace as an outpatient for further evaluation and treatment. ACTIVE PROBLEM LIST Edema Proteinuria Essential Hypertension Atrial Fibrillation (Hcc) Membranous Glomerulonephritis Vitamin D Deficiency Sle (Systemic Lupus Erythematosus) (Hcc) Fibromyalgia Sleep Apnea Encounter for Long-Term (Current) Use of Other High-Risk Medications Osteoarthritis of ankle and foot HALLUX VALGUS ACQUIRED Other Hammer Toe (Acquired) Enthesopathy of Ankle and Tarsus, Unspecified Lesion of Plantar Nerve Neuralgia, Neuritis, and Radiculitis, Unspecified Foot Pain, Left Other Synovitis and Tenosynovitis, Unspecified Ankle and Foot Osteoarthrosis of Ankle and Foot, Left Synovitis of Left Foot Synovitis of Right Foot Vocal Cord Edema Synovitis of Foot Conjunctivitis Keratopathy Obesity, Class III, BMI >= 40 Hypothyroidism Chronic Congestive Heart Failure (Hcc) Status Post Right Hip Replacement Medication and Non-Pharmacologic VTE Prophylaxis/Anticoagulants Anticoagulant AND Antiplatelet Medications (From admission, onward) Comment Start Dose Route Frequency Last Action Ordered Stop 12/19/20 0900 apixaban 5 mg tab(s) (ELIQUIS) (Surgical Risk Categories) 5 mg ORAL 2 TIMES DAILY Given, 12/20 0846 12/18/20 1355 -- 12/18/20 1400 graduated compression stockings ([place]) 12/18/20 1400 graduated compression stockings ([place]) 12/18/20 1400 activity - mobilize patient ([place]) 12/18/20 1400 activity - mobilize patient ([place]) 12/18/20 1400 activity - mobilize patient ([place]) VTE Prophylaxis: VTE prophylaxis appropriate POST OPERATIVE COMPLICATIONS: Complicated by: uneventful/none SIGNATURE: Marleni Hodges, MSN, RELATIONS LIAISON, WAREHOUSE MANAGER-C PATIENT NAME: Jesus Wolf DATE: December 20, 2020 TIME: 9:59 AM PAGER: [phone] [id number] History of Past illness Narrative* Problem Noted Date Resolved Date Primary osteoarthritis of right hip 12/18/2020 12/19/2020 Osteoarthritis of both feet 04/14/201803/17 Overview: Added automatically from request for surgery [id number] Osteoarthritis of ankle or foot 10/14/2017 04/02/2020 Overview: Added automatically from request for surgery [id number] Synovitis 10/14/2017 04/02/2020 Overview: Added automatically from request for surgery [id number] Osteoarthrosis, localized, secondary, ankle or f oot 08/07/2015 04/02/2020 documented as of this encounter (statuses as of 11/18/2021) [facility]05-[facility] History of Past illness Narrative* Problem Noted Date Resolved Date Primary osteoarthritis of right hip 12/18/2020 12/19/2020 Osteoarthritis of both feet 04/14/201803/17 Overview: Added automatically from request for surgery [id number] Osteoarthritis of ankle or foot 10/14/2017 04/02/2020 Overview: Added automatically from request for surgery [id number] Synovitis 10/14/2017 04/02/2020 Overview: Added automatically from request for surgery [id number] Osteoarthrosis, localized, secondary, ankle or f oot 08/07/2015 04/02/2020 documented as of this encounter (statuses as of 12/09/2021) [facility]05-04-2021 History of Past illness Narrative* Problem Noted Date Resolved Date Primary osteoarthritis of right hip 12/18/2020 12/19/2020 Osteoarthritis of both feet 04/14/201803/17 Overview: Added automatically from request for surgery [id number] Osteoarthritis of ankle or foot 10/14/2017 04/02/2020 Overview: Added automatically from request for surgery [id number] Synovitis 10/14/2017 04/02/2020 Overview: Added automatically from request for surgery [id number] Osteoarthrosis, localized, secondary, ankle or f oot 08/07/2015 04/02/2020 documented as of this encounter (statuses as of 12/09/2021) [facility]05-04[facility]2021 History of Past illness Narrative* Problem Noted Date Resolved Date Primary osteoarthritis of right hip 12/18/2020 12/19/2020 Osteoarthritis of both feet 04/14/201803/17 Overview: Added automatically from request for surgery [id number] Osteoarthritis of ankle or foot 10/14/2017 04/02/2020 Overview: Added automatically from request for surgery [id number] Synovitis 10/14/2017 04/02/2020 Overview: Added automatically from request for surgery [id number] Osteoarthrosis, localized, secondary, ankle or f oot 08/07/2015 04/02/2020 documented as of this encounter (statuses as of 12/30/2021) [facility]21 History of Past illness Narrative* Problem Noted Date Resolved Date Primary osteoarthritis of right hip 12/18/2020 12/19/2020 Osteoarthritis of both feet 04/14/201803/17 Overview: Added automatically from request for surgery [id number] Osteoarthritis of ankle or foot 10/14/2017 04/02/2020 Overview: Added automatically from request for surgery [id number] Synovitis 10/14/2017 04/02/2020 Overview: Added automatically from request for surgery [id number] Osteoarthrosis, localized, secondary, ankle or f oot 08/07/2015 04/02/2020 documented as of this encounter (statuses as of 01/23/2022) [facility]21 History of Past illness Narrative* Problem Noted Date Resolved Date Primary osteoarthritis of right hip 12/18/2020 12/19/2020 Osteoarthritis of both feet 04/14/201803/17 Overview: Added automatically from request for surgery [id number] Osteoarthritis of ankle or foot 10/14/2017 04/02/2020 Overview: Added automatically from request for surgery [id number] Synovitis 10/14/2017 04/02/2020 Overview: Added automatically from request for surgery [id number] Osteoarthrosis, localized, secondary, ankle or f oot 08/07/2015 04/02/2020 documented as of this encounter (statuses as of 01/28/2022) [facility]21 History of Past illness Narrative* Problem Noted Date Resolved Date Primary osteoarthritis of right hip 12/18/2020 12/19/2020 Osteoarthritis of both feet 04/14/201803/17 Overview: Added automatically from request for surgery [id number] Osteoarthritis of ankle or foot 10/14/2017 04/02/2020 Overview: Added automatically from request for surgery [id number] Synovitis 10/14/2017 04/02/2020 Overview: Added automatically from request for surgery [id number] Osteoarthrosis, localized, secondary, ankle or f oot 08/07/2015 04/02/2020 documented as of this encounter (statuses as of 02/05/2022) [facility] History of Past illness Narrative* Problem Noted Date Resolved Date Primary osteoarthritis of right hip 12/18/2020 12/19/2020 Osteoarthritis of both feet 04/14/201803/17 Overview: Added automatically from request for surgery [id number] Osteoarthritis of ankle or foot 10/14/2017 04/02/2020 Overview: Added automatically from request for surgery [id number] Synovitis 10/14/2017 04/02/2020 Overview: Added automatically from request for surgery [id number] Osteoarthrosis, localized, secondary, ankle or f oot 08/07/2015 04/02/2020 documented as of this encounter (statuses as of 2022) [facility]21 History of Past illness Narrative* Problem Noted Date Resolved Date Primary osteoarthritis of right hip 12/18/2020 12/19/2020 Osteoarthritis of both feet 04/14/201803/17 Overview: Added automatically from request for surgery [id number] Osteoarthritis of ankle or foot 10/14/2017 04/02/2020 Overview: Added automatically from request for surgery [id number] Synovitis 10/14/2017 04/02/2020 Overview: Added automatically from request for surgery [id number] Osteoarthrosis, localized, secondary, ankle or f oot 08/07/2015 04/02/2020 documented as of this encounter (statuses as of 02/19/2022) [facility]21 History of Past illness Narrative* Problem Noted Date Resolved Date Primary osteoarthritis of right hip 12/18/2020 12/19/2020 Osteoarthritis of both feet 04/14/201803/17 Overview: Added automatically from request for surgery [id number] Osteoarthritis of ankle or foot 10/14/2017 04/02/2020 Overview: Added automatically from request for surgery [id number] Synovitis 10/14/2017 04/02/2020 Overview: Added automatically from request for surgery [id number] Osteoarthrosis, localized, secondary, ankle or f oot 08/07/2015 04/02/2020 documented as of this encounter (statuses as of 02/20/2022) [facility]21 History of Past illness Narrative* Problem Noted Date Resolved Date Primary osteoarthritis of right hip 12/18/2020 12/19/2020 Osteoarthritis of both feet 04/14/201803/17 Overview: Added automatically from request for surgery [id number] Osteoarthritis of ankle or foot 10/14/2017 04/02/2020 Overview: Added automatically from request for surgery [id number] Synovitis 10/14/2017 04/02/2020 Overview: Added automatically from request for surgery [id number] Osteoarthrosis, localized, secondary, ankle or f oot 08/07/2015 04/02/2020 documented as of this encounter (statuses as of 02/21/2022) [facility]21 History of Past illness Narrative* Problem Noted Date Resolved Date Primary osteoarthritis of right hip 12/18/2020 12/19/2020 Osteoarthritis of both feet 04/14/201803/17 Overview: Added automatically from request for surgery [id number] Osteoarthritis of ankle or foot 10/14/2017 04/02/2020 Overview: Added automatically from request for surgery [id number] Synovitis 10/14/2017 04/02/2020 Overview: Added automatically from request for surgery [id number] Osteoarthrosis, localized, secondary, ankle or f oot 08/07/2015 04/02/2020 documented as of this encounter (statuses as of 02/24/2022) [facility]21 History of Past illness Narrative* Problem Noted Date Resolved Date Primary osteoarthritis of right hip 12/18/2020 12/19/2020 Osteoarthritis of both feet 04/14/201803/17 Overview: Added automatically from request for surgery [id number] Osteoarthritis of ankle or foot 10/14/2017 04/02/2020 Overview: Added automatically from request for surgery [id number] Synovitis 10/14/2017 04/02/2020 Overview: Added automatically from request for surgery [id number] Osteoarthrosis, localized, secondary, ankle or f oot 08/07/2015 04/02/2020 documented as of this encounter (statuses as of 02/25/2022) [facility]21 History of Past illness Narrative* Problem Noted Date Resolved Date Primary osteoarthritis of right hip 12/18/2020 12/19/2020 Osteoarthritis of both feet 04/14/201803/17 Overview: Added automatically from request for surgery [id number] Osteoarthritis of ankle or foot 10/14/2017 04/02/2020 Overview: Added automatically from request for surgery [id number] Synovitis 10/14/2017 04/02/2020 Overview: Added automatically from request for surgery [id number] Osteoarthrosis, localized, secondary, ankle or f oot 08/07/2015 04/02/2020 documented as of this encounter (statuses as of 03/06/2022) [facility]21 History of Past illness Narrative* Problem Noted Date Resolved Date Primary osteoarthritis of right hip 12/18/2020 12/19/2020 Osteoarthritis of both feet 04/14/201803/17 Overview: Added automatically from request for surgery [id number] Osteoarthritis of ankle or foot 10/14/2017 04/02/2020 Overview: Added automatically from request for surgery [id number] Synovitis 10/14/2017 04/02/2020 Overview: Added automatically from request for surgery [id number] Osteoarthrosis, localized, secondary, ankle or f oot 08/07/2015 04/02/2020 documented as of this encounter (statuses as of 03/12/2022) [facility] History of Past illness Narrative* Problem Noted Date Resolved Date Primary osteoarthritis of right hip 12/18/2020 12/19/2020 Osteoarthritis of both feet 04/14/201803/17 Overview: Added automatically from request for surgery [id number] Osteoarthritis of ankle or foot 10/14/2017 04/02/2020 Overview: Added automatically from request for surgery [id number] Synovitis 10/14/2017 04/02/2020 Overview: Added automatically from request for surgery [id number] Osteoarthrosis, localized, secondary, ankle or f oot 08/07/2015 04/02/2020 documented as of this encounter (statuses as of 03/13/2022) [facility] History of Past illness Narrative* Problem Noted Date Resolved Date Primary osteoarthritis of right hip 12/18/2020 12/19/2020 Osteoarthritis of both feet 04/14/201803/17 Overview: Added automatically from request for surgery [id number] Osteoarthritis of ankle or foot 10/14/2017 04/02/2020 Overview: Added automatically from request for surgery [id number] Synovitis 10/14/2017 04/02/2020 Overview: Added automatically from request for surgery [id number] Osteoarthrosis, localized, secondary, ankle or f oot 08/07/2015 04/02/2020 documented as of this encounter (statuses as of 03/13/2022) [facility] History of Past illness Narrative* Problem Noted Date Resolved Date Primary osteoarthritis of right hip 12/18/2020 12/19/2020 Osteoarthritis of both feet 04/14/201803/17 Overview: Added automatically from request for surgery [id number] Osteoarthritis of ankle or foot 10/14/2017 04/02/2020 Overview: Added automatically from request for surgery [id number] Synovitis 10/14/2017 04/02/2020 Overview: Added automatically from request for surgery [id number] Osteoarthrosis, localized, secondary, ankle or f oot 08/07/2015 04/02/2020 documented as of this encounter (statuses as of 03/13/2022) [facility]21 History of Past illness Narrative* Problem Noted Date Resolved Date Primary osteoarthritis of right hip 12/18/2020 12/19/2020 Osteoarthritis of both feet 04/14/201803/17 Overview: Added automatically from request for surgery [id number] Osteoarthritis of ankle or foot 10/14/2017 04/02/2020 Overview: Added automatically from request for surgery [id number] Synovitis 10/14/2017 04/02/2020 Overview: Added automatically from request for surgery [id number] Osteoarthrosis, localized, secondary, ankle or f oot 08/07/2015 04/02/2020 documented as of this encounter (statuses as of 03/16/2022) [facility]21 History of Past illness Narrative* Problem Noted Date Resolved Date Primary osteoarthritis of right hip 12/18/2020 12/19/2020 Osteoarthritis of both feet 04/14/201803/17 Overview: Added automatically from request for surgery [id number] Osteoarthritis of ankle or foot 10/14/2017 04/02/2020 Overview: Added automatically from request for surgery [id number] Synovitis 10/14/2017 04/02/2020 Overview: Added automatically from request for surgery [id number] Osteoarthrosis, localized, secondary, ankle or f oot 08/07/2015 04/02/2020 documented as of this encounter (statuses as of 03/20/2022) [facility]21 History of Past illness Narrative* Problem Noted Date Resolved Date Primary osteoarthritis of right hip 12/18/2020 12/19/2020 Osteoarthritis of both feet 04/14/201803/17 Overview: Added automatically from request for surgery [id number] Osteoarthritis of ankle or foot 10/14/2017 04/02/2020 Overview: Added automatically from request for surgery [id number] Synovitis 10/14/2017 04/02/2020 Overview: Added automatically from request for surgery [id number] Osteoarthrosis, localized, secondary, ankle or f oot 08/07/2015 04/02/2020 documented as of this encounter (statuses as of 03/20/2022) [facility]21 History of Past illness Narrative* Problem Noted Date Resolved Date Primary osteoarthritis of right hip 12/18/2020 12/19/2020 Osteoarthritis of both feet 04/14/201803/17 Overview: Added automatically from request for surgery [id number] Osteoarthritis of ankle or foot 10/14/2017 04/02/2020 Overview: Added automatically from request for surgery [id number] Synovitis 10/14/2017 04/02/2020 Overview: Added automatically from request for surgery [id number] Osteoarthrosis, localized, secondary, ankle or f oot 08/07/2015 04/02/2020 documented as of this encounter (statuses as of 03/27/2022) [facility] History of Past illness Narrative* Problem Noted Date Resolved Date Primary osteoarthritis of right hip 12/18/2020 12/19/2020 Osteoarthritis of both feet 04/14/201803/17 Overview: Added automatically from request for surgery [id number] Osteoarthritis of ankle or foot 10/14/2017 04/02/2020 Overview: Added automatically from request for surgery [id number] Synovitis 10/14/2017 04/02/2020 Overview: Added automatically from request for surgery [id number] Osteoarthrosis, localized, secondary, ankle or f oot 08/07/2015 04/02/2020 documented as of this encounter (statuses as of 04/23/2022) [facility] History of Past illness Narrative* Problem Noted Date Resolved Date Primary osteoarthritis of right hip 12/18/2020 12/19/2020 Osteoarthritis of both feet 04/14/201803/17 Overview: Added automatically from request for surgery [id number] Osteoarthritis of ankle or foot 10/14/2017 04/02/2020 Overview: Added automatically from request for surgery [id number] Synovitis 10/14/2017 04/02/2020 Overview: Added automatically from request for surgery [id number] Osteoarthrosis, localized, secondary, ankle or f oot 08/07/2015 04/02/2020 documented as of this encounter (statuses as of 05/06/2022) [facility] History of Past illness Narrative* Problem Noted Date Resolved Date Primary osteoarthritis of right hip 12/18/2020 12/19/2020 Osteoarthritis of both feet 04/14/201803/17 Overview: Added automatically from request for surgery [id number] Osteoarthritis of ankle or foot 10/14/2017 04/02/2020 Overview: Added automatically from request for surgery [id number] Synovitis 10/14/2017 04/02/2020 Overview: Added automatically from request for surgery [id number] Osteoarthrosis, localized, secondary, ankle or f oot 08/07/2015 04/02/2020 documented as of this encounter (statuses as of 05/07/2022) [facility]21 History of Past illness Narrative* Problem Noted Date Resolved Date Primary osteoarthritis of right hip 12/18/2020 12/19/2020 Osteoarthritis of both feet 04/14/201803/17 Overview: Added automatically from request for surgery [id number] Osteoarthritis of ankle or foot 10/14/2017 04/02/2020 Overview: Added automatically from request for surgery [id number] Synovitis 10/14/2017 04/02/2020 Overview: Added automatically from request for surgery [id number] Osteoarthrosis, localized, secondary, ankle or f oot 08/07/2015 04/02/2020 documented as of this encounter (statuses as of 05/12/2022) [facility] History of Past illness Narrative* Problem Noted Date Resolved Date Primary osteoarthritis of right hip 12/18/2020 12/19/2020 Osteoarthritis of both feet 04/14/201803/17 Overview: Added automatically from request for surgery [id number] Osteoarthritis of ankle or foot 10/14/2017 04/02/2020 Overview: Added automatically from request for surgery [id number] Synovitis 10/14/2017 04/02/2020 Overview: Added automatically from request for surgery [id number] Osteoarthrosis, localized, secondary, ankle or f oot 08/07/2015 04/02/2020 documented as of this encounter (statuses as of 05/15/2022) [facility] History of Past illness Narrative* Problem Noted Date Resolved Date Primary osteoarthritis of right hip 12/18/2020 12/19/2020 Osteoarthritis of both feet 04/14/201803/17 Overview: Added automatically from request for surgery [id number] Osteoarthritis of ankle or foot 10/14/2017 04/02/2020 Overview: Added automatically from request for surgery [id number] Synovitis 10/14/2017 04/02/2020 Overview: Added automatically from request for surgery [id number] Osteoarthrosis, localized, secondary, ankle or f oot 08/07/2015 04/02/2020 documented as of this encounter (statuses as of 05/15/2022) [facility] History of Past illness Narrative* Problem Noted Date Resolved Date Primary osteoarthritis of right hip 12/18/2020 12/19/2020 Osteoarthritis of both feet 04/14/201803/17 Overview: Added automatically from request for surgery [id number] Osteoarthritis of ankle or foot 10/14/2017 04/02/2020 Overview: Added automatically from request for surgery [id number] Synovitis 10/14/2017 04/02/2020 Overview: Added automatically from request for surgery [id number] Osteoarthrosis, localized, secondary, ankle or f oot 08/07/2015 04/02/2020 documented as of this encounter (statuses as of 05/19/2022) [facility] History of Past illness Narrative* Problem Noted Date Resolved Date Primary osteoarthritis of right hip 12/18/2020 12/19/2020 Osteoarthritis of both feet 04/14/201803/17 Overview: Added automatically from request for surgery [id number] Osteoarthritis of ankle or foot 10/14/2017 04/02/2020 Overview: Added automatically from request for surgery [id number] Synovitis 10/14/2017 04/02/2020 Overview: Added automatically from request for surgery [id number] Osteoarthrosis, localized, secondary, ankle or f oot 08/07/2015 04/02/2020 documented as of this encounter (statuses as of 05/19/2022) [facility] History of Past illness Narrative* Problem Noted Date Resolved Date Primary osteoarthritis of right hip 12/18/2020 12/19/2020 Osteoarthritis of both feet 04/14/201803/17 Overview: Added automatically from request for surgery [id number] Osteoarthritis of ankle or foot 10/14/2017 04/02/2020 Overview: Added automatically from request for surgery [id number] Synovitis 10/14/2017 04/02/2020 Overview: Added automatically from request for surgery [id number] Osteoarthrosis, localized, secondary, ankle or f oot 08/07/2015 04/02/2020 documented as of this encounter (statuses as of 05/26/2022) [facility] History of Past illness Narrative* Problem Noted Date Resolved Date Primary osteoarthritis of right hip 12/18/2020 12/19/2020 Osteoarthritis of both feet 04/14/201803/17 Overview: Added automatically from request for surgery [id number] Osteoarthritis of ankle or foot 10/14/2017 04/02/2020 Overview: Added automatically from request for surgery [id number] Synovitis 10/14/2017 04/02/2020 Overview: Added automatically from request for surgery [id number] Osteoarthrosis, localized, secondary, ankle or f oot 08/07/2015 04/02/2020 documented as of this encounter (statuses as of 06/11/2022) [facility] History of Past illness Narrative* Problem Noted Date Resolved Date Primary osteoarthritis of right hip 12/18/2020 12/19/2020 Osteoarthritis of both feet 04/14/201803/17 Overview: Added automatically from request for surgery [id number] Osteoarthritis of ankle or foot 10/14/2017 04/02/2020 Overview: Added automatically from request for surgery [id number] Synovitis 10/14/2017 04/02/2020 Overview: Added automatically from request for surgery [id number] Osteoarthrosis, localized, secondary, ankle or f oot 08/07/2015 04/02/2020 documented as of this encounter (statuses as of 06/12/2022) [facility] History of Past illness Narrative* Problem Noted Date Resolved Date Primary osteoarthritis of right hip 12/18/2020 12/19/2020 Osteoarthritis of both feet 04/14/201803/17 Overview: Added automatically from request for surgery [id number] Osteoarthritis of ankle or foot 10/14/2017 04/02/2020 Overview: Added automatically from request for surgery [id number] Synovitis 10/14/2017 04/02/2020 Overview: Added automatically from request for surgery [id number] Osteoarthrosis, localized, secondary, ankle or f oot 08/07/2015 04/02/2020 documented as of this encounter (statuses as of 06/18/2022) [facility] History of Past illness Narrative* Problem Noted Date Resolved Date Primary osteoarthritis of right hip 12/18/2020 12/19/2020 Osteoarthritis of both feet 04/14/201803/17 Overview: Added automatically from request for surgery [id number] Osteoarthritis of ankle or foot 10/14/2017 04/02/2020 Overview: Added automatically from request for surgery [id number] Synovitis 10/14/2017 04/02/2020 Overview: Added automatically from request for surgery [id number] Osteoarthrosis, localized, secondary, ankle or f oot 08/07/2015 04/02/2020 documented as of this encounter (statuses as of 06/19/2022) [facility] History of Past illness Narrative* Problem Noted Date Resolved Date Primary osteoarthritis of right hip 12/18/2020 12/19/2020 Osteoarthritis of both feet 04/14/201803/17 Overview: Added automatically from request for surgery [id number] Osteoarthritis of ankle or foot 10/14/2017 04/02/2020 Overview: Added automatically from request for surgery [id number] Synovitis 10/14/2017 04/02/2020 Overview: Added automatically from request for surgery [id number] Osteoarthrosis, localized, secondary, ankle or f oot 08/07/2015 04/02/2020 documented as of this encounter (statuses as of 07/01/2022) [facility] History of Past illness Narrative* Problem Noted Date Resolved Date Primary osteoarthritis of right hip 12/18/2020 12/19/2020 Osteoarthritis of both feet 04/14/201803/17 Overview: Added automatically from request for surgery [id number] Osteoarthritis of ankle or foot 10/14/2017 04/02/2020 Overview: Added automatically from request for surgery [id number] Synovitis 10/14/2017 04/02/2020 Overview: Added automatically from request for surgery [id number] Osteoarthrosis, localized, secondary, ankle or f oot 08/07/2015 04/02/2020 documented as of this encounter (statuses as of 07/01/2022) [facility] History of Past illness Narrative* Problem Noted Date Resolved Date Primary osteoarthritis of right hip 12/18/2020 12/19/2020 Osteoarthritis of both feet 04/14/201803/17 Overview: Added automatically from request for surgery [id number] Osteoarthritis of ankle or foot 10/14/2017 04/02/2020 Overview: Added automatically from request for surgery [id number] Synovitis 10/14/2017 04/02/2020 Overview: Added automatically from request for surgery [id number] Osteoarthrosis, localized, secondary, ankle or f oot 08/07/2015 04/02/2020 documented as of this encounter (statuses as of 07/07/2022) [facility] History of Past illness Narrative* Problem Noted Date Resolved Date Primary osteoarthritis of right hip 12/18/2020 12/19/2020 Osteoarthritis of both feet 04/14/201803/17 Overview: Added automatically from request for surgery [id number] Osteoarthritis of ankle or foot 10/14/2017 04/02/2020 Overview: Added automatically from request for surgery [id number] Synovitis 10/14/2017 04/02/2020 Overview: Added automatically from request for surgery [id number] Osteoarthrosis, localized, secondary, ankle or f oot 08/07/2015 04/02/2020 documented as of this encounter (statuses as of 07/08/2022) [facility] History of Past illness Narrative* Problem Noted Date Resolved Date Primary osteoarthritis of right hip 12/18/2020 12/19/2020 Osteoarthritis of both feet 04/14/201803/17 Overview: Added automatically from request for surgery [id number] Osteoarthritis of ankle or foot 10/14/2017 04/02/2020 Overview: Added automatically from request for surgery [id number] Synovitis 10/14/2017 04/02/2020 Overview: Added automatically from request for surgery [id number] Osteoarthrosis, localized, secondary, ankle or f oot 08/07/2015 04/02/2020 documented as of this encounter (statuses as of 07/08/2022) [facility]05-04-2021 History of Past illness Narrative* Problem Noted Date Resolved Date Primary osteoarthritis of right hip 12/18/2020 12/19/2020 Osteoarthritis of both feet 04/14/201803/17 Overview: Added automatically from request for surgery [id number] Osteoarthritis of ankle or foot 10/14/2017 04/02/2020 Overview: Added automatically from request for surgery [id number] Synovitis 10/14/2017 04/02/2020 Overview: Added automatically from request for surgery [id number] Osteoarthrosis, localized, secondary, ankle or f oot 08/07/2015 04/02/2020 documented as of this encounter (statuses as of 07/08/2022) [facility]05-04[facility]21 History of Past illness Narrative* Problem Noted Date Resolved Date Primary osteoarthritis of right hip 12/18/2020 12/19/2020 Osteoarthritis of both feet 04/14/201803/17 Overview: Added automatically from request for surgery [id number] Osteoarthritis of ankle or foot 10/14/2017 04/02/2020 Overview: Added automatically from request for surgery [id number] Synovitis 10/14/2017 04/02/2020 Overview: Added automatically from request for surgery [id number] Osteoarthrosis, localized, secondary, ankle or f oot 08/07/2015 04/02/2020 documented as of this encounter (statuses as of 07/11/2022) [facility]21 History of Past illness Narrative* Problem Noted Date Resolved Date Primary osteoarthritis of right hip 12/18/2020 12/19/2020 Osteoarthritis of ankle or foot 10/14/2017 04/02/2020 Overview: Added automatically from request for surgery [id number] Synovitis 10/14/2017 04/02/2020 Overview: Added automatically from request for surgery [id number] Osteoarthrosis, localized, secondary, ankle or f oot 08/07/2015 04/02/2020 documented as of this encounter (statuses as of 07/21/2022) [facility]21 History of Past illness Narrative* Problem Noted Date Resolved Date Primary osteoarthritis of right hip 12/18/2020 12/19/2020 Osteoarthritis of ankle or foot 10/14/2017 04/02/2020 Overview: Added automatically from request for surgery [id number] Synovitis 10/14/2017 04/02/2020 Overview: Added automatically from request for surgery [id number] Osteoarthrosis, localized, secondary, ankle or f oot 08/07/2015 04/02/2020 documented as of this encounter (statuses as of 07/31/2022) [facility]21 History of Past illness Narrative* Problem Noted Date Resolved Date Primary osteoarthritis of right hip 12/18/2020 12/19/2020 Osteoarthritis of ankle or foot 10/14/2017 04/02/2020 Overview: Added automatically from request for surgery [id number] Synovitis 10/14/2017 04/02/2020 Overview: Added automatically from request for surgery [id number] Osteoarthrosis, localized, secondary, ankle or f oot 08/07/2015 04/02/2020 documented as of this encounter (statuses as of 08/08/2022) [facility] History of Past illness Narrative* Problem Noted Date Resolved Date Primary osteoarthritis of right hip 12/18/2020 12/19/2020 Osteoarthritis of ankle or foot 10/14/2017 04/02/2020 Overview: Added automatically from request for surgery [id number] Synovitis 10/14/2017 04/02/2020 Overview: Added automatically from request for surgery [id number] Osteoarthrosis, localized, secondary, ankle or f oot 08/07/2015 04/02/2020 documented as of this encounter (statuses as of 08/22/2022) [facility] History of Past illness Narrative* Problem Noted Date Resolved Date Primary osteoarthritis of right hip 12/18/2020 12/19/2020 Osteoarthritis of ankle or foot 10/14/2017 04/02/2020 Overview: Added automatically from request for surgery [id number] Synovitis 10/14/2017 04/02/2020 Overview: Added automatically from request for surgery [id number] Osteoarthrosis, localized, secondary, ankle or f oot 08/07/2015 04/02/2020 documented as of this encounter (statuses as of 08/23/2022) [facility] History of Past illness Narrative* Problem Noted Date Resolved Date Primary osteoarthritis of right hip 12/18/2020 12/19/2020 Osteoarthritis of ankle or foot 10/14/2017 04/02/2020 Overview: Added automatically from request for surgery [id number] Synovitis 10/14/2017 04/02/2020 Overview: Added automatically from request for surgery [id number] Osteoarthrosis, localized, secondary, ankle or f oot 08/07/2015 04/02/2020 documented as of this encounter (statuses as of 08/25/2022) [facility]21 History of Past illness Narrative* Problem Noted Date Resolved Date Primary osteoarthritis of right hip 12/18/2020 12/19/2020 Osteoarthritis of ankle or foot 10/14/2017 04/02/2020 Overview: Added automatically from request for surgery [id number] Synovitis 10/14/2017 04/02/2020 Overview: Added automatically from request for surgery [id number] Osteoarthrosis, localized, secondary, ankle or f oot 08/07/2015 04/02/2020 documented as of this encounter (statuses as of 08/26/2022) [facility]21 History of Past illness Narrative* Problem Noted Date Resolved Date Primary osteoarthritis of right hip 12/18/2020 12/19/2020 Osteoarthritis of ankle or foot 10/14/2017 04/02/2020 Overview: Added automatically from request for surgery [id number] Synovitis 10/14/2017 04/02/2020 Overview: Added automatically from request for surgery [id number] Osteoarthrosis, localized, secondary, ankle or f oot 08/07/2015 04/02/2020 documented as of this encounter (statuses as of 09/09/2022) [facility] History of Past illness Narrative* Problem Noted Date Resolved Date Primary osteoarthritis of right hip 12/18/2020 12/19/2020 Osteoarthritis of ankle or foot 10/14/2017 04/02/2020 Overview: Added automatically from request for surgery [id number] Synovitis 10/14/2017 04/02/2020 Overview: Added automatically from request for surgery [id number] Osteoarthrosis, localized, secondary, ankle or f oot 08/07/2015 04/02/2020 documented as of this encounter (statuses as of 09/12/2022) [facility] History of Past illness Narrative* Problem Noted Date Resolved Date Primary osteoarthritis of right hip 12/18/2020 12/19/2020 Osteoarthritis of ankle or foot 10/14/2017 04/02/2020 Overview: Added automatically from request for surgery [id number] Synovitis 10/14/2017 04/02/2020 Overview: Added automatically from request for surgery [id number] Osteoarthrosis, localized, secondary, ankle or f oot 08/07/2015 04/02/2020 documented as of this encounter (statuses as of 09/15/2022) [facility]21 History of Past illness Narrative* Problem Noted Date Resolved Date Primary osteoarthritis of right hip 12/18/2020 12/19/2020 Osteoarthritis of ankle or foot 10/14/2017 04/02/2020 Overview: Added automatically from request for surgery [id number] Synovitis 10/14/2017 04/02/2020 Overview: Added automatically from request for surgery [id number] Osteoarthrosis, localized, secondary, ankle or f oot 08/07/2015 04/02/2020 documented as of this encounter (statuses as of 09/15/2022) [facility] History of Past illness Narrative* Problem Noted Date Resolved Date Primary osteoarthritis of right hip 12/18/2020 12/19/2020 Osteoarthritis of ankle or foot 10/14/2017 04/02/2020 Overview: Added automatically from request for surgery [id number] Synovitis 10/14/2017 04/02/2020 Overview: Added automatically from request for surgery [id number] Osteoarthrosis, localized, secondary, ankle or f oot 08/07/2015 04/02/2020 documented as of this encounter (statuses as of 09/22/2022) [facility] History of Past illness Narrative* Problem Noted Date Resolved Date Primary osteoarthritis of right hip 12/18/2020 12/19/2020 Osteoarthritis of ankle or foot 10/14/2017 04/02/2020 Overview: Added automatically from request for surgery [id number] Synovitis 10/14/2017 04/02/2020 Overview: Added automatically from request for surgery [id number] Osteoarthrosis, localized, secondary, ankle or f oot 08/07/2015 04/02/2020 documented as of this encounter (statuses as of 09/24/2022) [facility] History of Past illness Narrative* Problem Noted Date Resolved Date Primary osteoarthritis of right hip 12/18/2020 12/19/2020 Osteoarthritis of ankle or foot 10/14/2017 04/02/2020 Overview: Added automatically from request for surgery [id number] Synovitis 10/14/2017 04/02/2020 Overview: Added automatically from request for surgery [id number] Osteoarthrosis, localized, secondary, ankle or f oot 08/07/2015 04/02/2020 documented as of this encounter (statuses as of 10/02/2022) [facility] History of Past illness Narrative* Problem Noted Date Resolved Date Primary osteoarthritis of right hip 12/18/2020 12/19/2020 Osteoarthritis of ankle or foot 10/14/2017 04/02/2020 Overview: Added automatically from request for surgery [id number] Synovitis 10/14/2017 04/02/2020 Overview: Added automatically from request for surgery [id number] Osteoarthrosis, localized, secondary, ankle or f oot 08/07/2015 04/02/2020 documented as of this encounter (statuses as of 10/16/2022) [facility] History of Past illness Narrative* Problem Noted Date Resolved Date Primary osteoarthritis of right hip 12/18/2020 12/19/2020 Osteoarthritis of ankle or foot 10/14/2017 04/02/2020 Overview: Added automatically from request for surgery [id number] Synovitis 10/14/2017 04/02/2020 Overview: Added automatically from request for surgery [id number] Osteoarthrosis, localized, secondary, ankle or f oot 08/07/2015 04/02/2020 documented as of this encounter (statuses as of 10/17/2022) [facility] History of Past illness Narrative* Problem Noted Date Resolved Date Primary osteoarthritis of right hip 12/18/2020 12/19/2020 Osteoarthritis of ankle or foot 10/14/2017 04/02/2020 Overview: Added automatically from request for surgery [id number] Synovitis 10/14/2017 04/02/2020 Overview: Added automatically from request for surgery [id number] Osteoarthrosis, localized, secondary, ankle or f oot 08/07/2015 04/02/2020 documented as of this encounter (statuses as of 10/22/2022) [facility] History of Past illness Narrative* Problem Noted Date Resolved Date Primary osteoarthritis of right hip 12/18/2020 12/19/2020 Osteoarthritis of ankle or foot 10/14/2017 04/02/2020 Overview: Added automatically from request for surgery [id number] Synovitis 10/14/2017 04/02/2020 Overview: Added automatically from request for surgery [id number] Osteoarthrosis, localized, secondary, ankle or f oot 08/07/2015 04/02/2020 documented as of this encounter (statuses as of 10/22/2022) [facility]21 History of Past illness Narrative* Problem Noted Date Resolved Date Primary osteoarthritis of right hip 12/18/2020 12/19/2020 Osteoarthritis of ankle or foot 10/14/2017 04/02/2020 Overview: Added automatically from request for surgery [id number] Synovitis 10/14/2017 04/02/2020 Overview: Added automatically from request for surgery [id number] Osteoarthrosis, localized, secondary, ankle or f oot 08/07/2015 04/02/2020 documented as of this encounter (statuses as of 10/23/2022) [facility] History of Past illness Narrative* Problem Noted Date Resolved Date Primary osteoarthritis of right hip 12/18/2020 12/19/2020 Osteoarthritis of ankle or foot 10/14/2017 04/02/2020 Overview: Added automatically from request for surgery [id number] Synovitis 10/14/2017 04/02/2020 Overview: Added automatically from request for surgery [id number] Osteoarthrosis, localized, secondary, ankle or f oot 08/07/2015 04/02/2020 documented as of this encounter (statuses as of 10/24/2022) [facility] History of Past illness Narrative* Problem Noted Date Resolved Date Primary osteoarthritis of right hip 12/18/2020 12/19/2020 Osteoarthritis of ankle or foot 10/14/2017 04/02/2020 Overview: Added automatically from request for surgery [id number] Synovitis 10/14/2017 04/02/2020 Overview: Added automatically from request for surgery [id number] Osteoarthrosis, localized, secondary, ankle or f oot 08/07/2015 04/02/2020 documented as of this encounter (statuses as of 10/24/2022) [facility]21 History of Past illness Narrative* Problem Noted Date Resolved Date Primary osteoarthritis of right hip 12/18/2020 12/19/2020 Osteoarthritis of ankle or foot 10/14/2017 04/02/2020 Overview: Added automatically from request for surgery [id number] Synovitis 10/14/2017 04/02/2020 Overview: Added automatically from request for surgery [id number] Osteoarthrosis, localized, secondary, ankle or f oot 08/07/2015 04/02/2020 documented as of this encounter (statuses as of 10/29/2022) [facility] History of Past illness Narrative* Problem Noted Date Resolved Date Primary osteoarthritis of right hip 12/18/2020 12/19/2020 Osteoarthritis of ankle or foot 10/14/2017 04/02/2020 Overview: Added automatically from request for surgery [id number] Synovitis 10/14/2017 04/02/2020 Overview: Added automatically from request for surgery [id number] Osteoarthrosis, localized, secondary, ankle or f oot 08/07/2015 04/02/2020 documented as of this encounter (statuses as of 10/29/2022) [facility] History of Past illness Narrative* Problem Noted Date Resolved Date Primary osteoarthritis of right hip 12/18/2020 12/19/2020 Osteoarthritis of ankle or foot 10/14/2017 04/02/2020 Overview: Added automatically from request for surgery [id number] Synovitis 10/14/2017 04/02/2020 Overview: Added automatically from request for surgery [id number] Osteoarthrosis, localized, secondary, ankle or f oot 08/07/2015 04/02/2020 documented as of this encounter (statuses as of 11/25/2022) [facility] History of Past illness Narrative* Problem Noted Date Resolved Date Primary osteoarthritis of right hip 12/18/2020 12/19/2020 Osteoarthritis of ankle or foot 10/14/2017 04/02/2020 Overview: Added automatically from request for surgery [id number] Synovitis 10/14/2017 04/02/2020 Overview: Added automatically from request for surgery [id number] Osteoarthrosis, localized, secondary, ankle or f oot 08/07/2015 04/02/2020 documented as of this encounter (statuses as of 12/12/2022) [facility] History of Past illness Narrative* Problem Noted Date Resolved Date Primary osteoarthritis of right hip 12/18/2020 12/19/2020 Osteoarthritis of ankle or foot 10/14/2017 04/02/2020 Overview: Added automatically from request for surgery [id number] Synovitis 10/14/2017 04/02/2020 Overview: Added automatically from request for surgery [id number] Osteoarthrosis, localized, secondary, ankle or f oot 08/07/2015 04/02/2020 documented as of this encounter (statuses as of 12/15/2022) [facility]21 History of Past illness Narrative* Problem Noted Date Resolved Date Primary osteoarthritis of right hip 12/18/2020 12/19/2020 Osteoarthritis of ankle or foot 10/14/2017 04/02/2020 Overview: Added automatically from request for surgery [id number] Synovitis 10/14/2017 04/02/2020 Overview: Added automatically from request for surgery [id number] Osteoarthrosis, localized, secondary, ankle or f oot 08/07/2015 04/02/2020 documented as of this encounter (statuses as of 12/20/2022) [facility] History of Past illness Narrative* Problem Noted Date Resolved Date Primary osteoarthritis of right hip 12/18/2020 12/19/2020 Osteoarthritis of ankle or foot 10/14/2017 04/02/2020 Overview: Added automatically from request for surgery [id number] Synovitis 10/14/2017 04/02/2020 Overview: Added automatically from request for surgery [id number] Osteoarthrosis, localized, secondary, ankle or f oot 08/07/2015 04/02/2020 documented as of this encounter (statuses as of 01/13/2023) [facility] History of Past illness Narrative* Problem Noted Date Resolved Date Primary osteoarthritis of right hip 12/18/2020 12/19/2020 Osteoarthritis of ankle or foot 10/14/2017 04/02/2020 Overview: Added automatically from request for surgery [id number] Synovitis 10/14/2017 04/02/2020 Overview: Added automatically from request for surgery [id number] Osteoarthrosis, localized, secondary, ankle or f oot 08/07/2015 04/02/2020 documented as of this encounter (statuses as of 01/22/2023) [facility] History of Past illness Narrative* Problem Noted Date Resolved Date Primary osteoarthritis of right hip 12/18/2020 12/19/2020 Osteoarthritis of ankle or foot 10/14/2017 04/02/2020 Overview: Added automatically from request for surgery [id number] Synovitis 10/14/2017 04/02/2020 Overview: Added automatically from request for surgery [id number] Osteoarthrosis, localized, secondary, ankle or f oot 08/07/2015 04/02/2020 documented as of this encounter (statuses as of 02/05/2023) [facility] History of Past illness Narrative* Problem Noted Date Resolved Date Primary osteoarthritis of right hip 12/18/2020 12/19/2020 Osteoarthritis of ankle or foot 10/14/2017 04/02/2020 Overview: Added automatically from request for surgery [id number] Synovitis 10/14/2017 04/02/2020 Overview: Added automatically from request for surgery [id number] Osteoarthrosis, localized, secondary, ankle or f oot 08/07/2015 04/02/2020 documented as of this encounter (statuses as of 02/05/2023) [facility] History of Past illness Narrative* Problem Noted Date Resolved Date Primary osteoarthritis of right hip 12/18/2020 12/19/2020 Osteoarthritis of ankle or foot 10/14/2017 04/02/2020 Overview: Added automatically from request for surgery [id number] Synovitis 10/14/2017 04/02/2020 Overview: Added automatically from request for surgery [id number] Osteoarthrosis, localized, secondary, ankle or f oot 08/07/2015 04/02/2020 documented as of this encounter (statuses as of 02/09/2023) [facility] History of Past illness Narrative* Problem Noted Date Resolved Date Primary osteoarthritis of right hip 12/18/2020 12/19/2020 Osteoarthritis of ankle or foot 10/14/2017 04/02/2020 Overview: Added automatically from request for surgery [id number] Synovitis 10/14/2017 04/02/2020 Overview: Added automatically from request for surgery [id number] Osteoarthrosis, localized, secondary, ankle or f oot 08/07/2015 04/02/2020 documented as of this encounter (statuses as of 02/10/2023) [facility] History of Past illness Narrative* Problem Noted Date Resolved Date Primary osteoarthritis of right hip 12/18/2020 12/19/2020 Osteoarthritis of ankle or foot 10/14/2017 04/02/2020 Overview: Added automatically from request for surgery [id number] Synovitis 10/14/2017 04/02/2020 Overview: Added automatically from request for surgery [id number] Osteoarthrosis, localized, secondary, ankle or f oot 08/07/2015 04/02/2020 documented as of this encounter (statuses as of 02/13/2023) [facility] History of Past illness Narrative* Problem Noted Date Resolved Date Primary osteoarthritis of right hip 12/18/2020 12/19/2020 Osteoarthritis of ankle or foot 10/14/2017 04/02/2020 Overview: Added automatically from request for surgery [id number] Synovitis 10/14/2017 04/02/2020 Overview: Added automatically from request for surgery [id number] Osteoarthrosis, localized, secondary, ankle or f oot 08/07/2015 04/02/2020 documented as of this encounter (statuses as of 02/16/2023) [facility] of Past illness Narrative* Problem Noted Date Resolved Date Primary osteoarthritis of right hip 12/18/2020 12/19/2020 Osteoarthritis of ankle or foot 10/14/2017 04/02/2020 Overview: Added automatically from request for surgery [id number] Synovitis 10/14/2017 04/02/2020 Overview: Added automatically from request for surgery [id number] Osteoarthrosis, localized, secondary, ankle or f oot 08/07/2015 04/02/2020 documented as of this encounter (statuses as of 02/19/2023) [facility] History of Past illness Narrative* Problem Noted Date Resolved Date Primary osteoarthritis of right hip 12/18/2020 12/19/2020 Osteoarthritis of ankle or foot 10/14/2017 04/02/2020 Overview: Added automatically from request for surgery [id number] Synovitis 10/14/2017 04/02/2020 Overview: Added automatically from request for surgery [id number] Osteoarthrosis, localized, secondary, ankle or f oot 08/07/2015 04/02/2020 documented as of this encounter (statuses as of 02/19/2023) [facility] History of Past illness Narrative* Problem Noted Date Diagnosed Date Resolved Date Primary osteoarthritis of right hip 12/18/2020 12/19/2020 Osteoarthritis of ankle or foot 10/14/2017 04/02/2020 Overview: Added automatically from request for surgery [id number] Synovitis 10/14/2017 04/02/2020 Overview: Added automatically from request for surgery [id number] Osteoarthrosis, localized, s econdary, ankle or foot 08/07/2015 04/02/2020 documented as of this encounter (statuses as of 03/12/2023) [facility] History of Past illness Narrative* Problem Noted Date Diagnosed Date Resolved Date Primary osteoarthritis of right hip 12/18/2020 12/19/2020 Osteoarthritis of ankle or foot 10/14/2017 04/02/2020 Overview: Added automatically from request for surgery [id number] Synovitis 10/14/2017 04/02/2020 Overview: Added automatically from request for surgery [id number] Osteoarthrosis, localized, s econdary, ankle or foot 08/07/2015 04/02/2020 documented as of this encounter (statuses as of 03/12/2023) [facility] History of Past illness Narrative* Problem Noted Date Diagnosed Date Resolved Date Primary osteoarthritis of right hip 12/18/2020 12/19/2020 Osteoarthritis of ankle or foot 10/14/2017 04/02/2020 Overview: Added automatically from request for surgery [id number] Synovitis 10/14/2017 04/02/2020 Overview: Added automatically from request for surgery [id number] Osteoarthrosis, localized, s econdary, ankle or foot 08/07/2015 04/02/2020 documented as of this encounter (statuses as of 03/16/2023) [facility] of Past illness Narrative* Problem Noted Date Diagnosed Date Resolved Date Primary osteoarthritis of right hip 12/18/2020 12/19/2020 Osteoarthritis of ankle or foot 10/14/2017 04/02/2020 Overview: Added automatically from request for surgery [id number] Synovitis 10/14/2017 04/02/2020 Overview: Added automatically from request for surgery [id number] Osteoarthrosis, localized, s econdary, ankle or foot 08/07/2015 04/02/2020 documented as of this encounter (statuses as of 03/19/2023) [facility] History of Past illness Narrative* Problem Noted Date Diagnosed Date Resolved Date Primary osteoarthritis of right hip 12/18/2020 12/19/2020 Osteoarthritis of ankle or foot 10/14/2017 04/02/2020 Overview: Added automatically from request for surgery [id number] Synovitis 10/14/2017 04/02/2020 Overview: Added automatically from request for surgery [id number] Osteoarthrosis, localized, s econdary, ankle or foot 08/07/2015 04/02/2020 documented as of this encounter (statuses as of 03/19/2023) [facility] History of Past illness Narrative* Problem Noted Date Diagnosed Date Resolved Date Primary osteoarthritis of right hip 12/18/2020 12/19/2020 Osteoarthritis of ankle or foot 10/14/2017 04/02/2020 Overview: Added automatically from request for surgery [id number] Synovitis 10/14/2017 04/02/2020 Overview: Added automatically from request for surgery [id number] Osteoarthrosis, localized, s econdary, ankle or foot 08/07/2015 04/02/2020 documented as of this encounter (statuses as of 03/27/2023) [facility] [facility] History of Past illness Narrative* Problem Noted Date Diagnosed Date Resolved Date Primary osteoarthritis of right hip 12/18/2020 12/19/2020 Osteoarthritis of ankle or foot 10/14/2017 04/02/2020 Overview: Added automatically from request for surgery [id number] Synovitis 10/14/2017 04/02/2020 Overview: Added automatically from request for surgery [id number] Osteoarthrosis, localized, s econdary, ankle or foot 08/07/2015 04/02/2020 documented as of this encounter (statuses as of 04/03/2023) [facility]05-04-[facility]21 History of Past illness Narrative* Problem Noted Date Diagnosed Date Resolved Date Primary osteoarthritis of right hip 12/18/2020 12/19/2020 Osteoarthritis of ankle or foot 10/14/2017 04/02/2020 Overview: Added automatically from request for surgery [id number] Synovitis 10/14/2017 04/02/2020 Overview: Added automatically from request for surgery [id number] Osteoarthrosis, localized, s econdary, ankle or foot 08/07/2015 04/02/2020 documented as of this encounter (statuses as of 04/08/2023) [facility]05-04[facility] History of Past illness Narrative* Problem Noted Date Diagnosed Date Resolved Date Primary osteoarthritis of right hip 12/18/2020 12/19/2020 Osteoarthritis of ankle or foot 10/14/2017 04/02/2020 Overview: Added automatically from request for surgery [id number] Synovitis 10/14/2017 04/02/2020 Overview: Added automatically from request for surgery [id number] Osteoarthrosis, localized, s econdary, ankle or foot 08/07/2015 04/02/2020 documented as of this encounter (statuses as of 04/10/2023) [facility]05-04[facility] History of Past illness Narrative* Problem Noted Date Diagnosed Date Resolved Date Primary osteoarthritis of right hip 12/18/2020 12/19/2020 Osteoarthritis of ankle or foot 10/14/2017 04/02/2020 Overview: Added automatically from request for surgery [id number] Synovitis 10/14/2017 04/02/2020 Overview: Added automatically from request for surgery [id number] Osteoarthrosis, localized, s econdary, ankle or foot 08/07/2015 04/02/2020 documented as of this encounter (statuses as of 04/15/2023) [facility]05-04[facility] History of Past illness Narrative* Problem Noted Date Diagnosed Date Resolved Date Primary osteoarthritis of right hip 12/18/2020 12/19/2020 Osteoarthritis of ankle or foot 10/14/2017 04/02/2020 Overview: Added automatically from request for surgery [id number] Synovitis 10/14/2017 04/02/2020 Overview: Added automatically from request for surgery [id number] Osteoarthrosis, localized, s econdary, ankle or foot 08/07/2015 04/02/2020 documented as of this encounter (statuses as of 04/17/2023) [facility] History of Past illness Narrative* Problem Noted Date Diagnosed Date Resolved Date Primary osteoarthritis of right hip 12/18/2020 12/19/2020 Osteoarthritis of ankle or foot 10/14/2017 04/02/2020 Overview: Added automatically from request for surgery [id number] Synovitis 10/14/2017 04/02/2020 Overview: Added automatically from request for surgery [id number] Osteoarthrosis, localized, s econdary, ankle or foot 08/07/2015 04/02/2020 documented as of this encounter (statuses as of 04/17/2023) [facility] History of Past illness Narrative* Problem Noted Date Diagnosed Date Resolved Date Primary osteoarthritis of right hip 12/18/2020 12/19/2020 Osteoarthritis of ankle or foot 10/14/2017 04/02/2020 Overview: Added automatically from request for surgery [id number] Synovitis 10/14/2017 04/02/2020 Overview: Added automatically from request for surgery [id number] Osteoarthrosis, localized, s econdary, ankle or foot 08/07/2015 04/02/2020 documented as of this encounter (statuses as of 04/27/2023) [facility] History of Past illness Narrative* Problem Noted Date Diagnosed Date Resolved Date Primary osteoarthritis of right hip 12/18/2020 12/19/2020 Osteoarthritis of ankle or foot 10/14/2017 04/02/2020 Overview: Added automatically from request for surgery [id number] Synovitis 10/14/2017 04/02/2020 Overview: Added automatically from request for surgery [id number] Osteoarthrosis, localized, s econdary, ankle or foot 08/07/2015 04/02/2020 documented as of this encounter (statuses as of 06/12/2023) [facility]05-[facility] History of Past illness Narrative* Problem Noted Date Diagnosed Date Resolved Date Primary osteoarthritis of right hip 12/18/2020 12/19/2020 Osteoarthritis of ankle or foot 10/14/2017 04/02/2020 Overview: Added automatically from request for surgery [id number] Synovitis 10/14/2017 04/02/2020 Overview: Added automatically from request for surgery [id number] Osteoarthrosis, localized, s econdary, ankle or foot 08/07/2015 04/02/2020 documented as of this encounter (statuses as of 06/16/2023) [facility] History of Past illness Narrative* Problem Noted Date Diagnosed Date Resolved Date Primary osteoarthritis of right hip 12/18/2020 12/19/2020 Osteoarthritis of ankle or foot 10/14/2017 04/02/2020 Overview: Added automatically from request for surgery [id number] Synovitis 10/14/2017 04/02/2020 Overview: Added automatically from request for surgery [id number] Osteoarthrosis, localized, s econdary, ankle or foot 08/07/2015 04/02/2020 documented as of this encounter (statuses as of 06/25/2023) [facility]05-04[facility] History of Past illness Narrative* Problem Noted Date Diagnosed Date Resolved Date Primary osteoarthritis of right hip 12/18/2020 12/19/2020 Osteoarthritis of ankle or foot 10/14/2017 04/02/2020 Overview: Added automatically from request for surgery [id number] Synovitis 10/14/2017 04/02/2020 Overview: Added automatically from request for surgery [id number] Osteoarthrosis, localized, s econdary, ankle or foot 08/07/2015 04/02/2020 documented as of this encounter (statuses as of 07/01/2023) [facility]05-04-[facility] History of Past illness Narrative* Problem Noted Date Diagnosed Date Resolved Date Primary osteoarthritis of right hip 12/18/2020 12/19/2020 Osteoarthritis of ankle or foot 10/14/2017 04/02/2020 Overview: Added automatically from request for surgery [id number] Synovitis 10/14/2017 04/02/2020 Overview: Added automatically from request for surgery [id number] Osteoarthrosis, localized, s econdary, ankle or foot 08/07/2015 04/02/2020 documented as of this encounter (statuses as of 07/02/2023) [facility] History of Past illness Narrative* Problem Noted Date Diagnosed Date Resolved Date Primary osteoarthritis of right hip 12/18/2020 12/19/2020 Osteoarthritis of ankle or foot 10/14/2017 04/02/2020 Overview: Added automatically from request for surgery [id number] Synovitis 10/14/2017 04/02/2020 Overview: Added automatically from request for surgery [id number] Osteoarthrosis, localized, s econdary, ankle or foot 08/07/2015 04/02/2020 documented as of this encounter (statuses as of 07/02/2023) [facility]05-04-[facility] History of Past illness Narrative* Problem Noted Date Diagnosed Date Resolved Date Primary osteoarthritis of right hip 12/18/2020 12/19/2020 Osteoarthritis of ankle or foot 10/14/2017 04/02/2020 Overview: Added automatically from request for surgery [id number] Synovitis 10/14/2017 04/02/2020 Overview: Added automatically from request for surgery [id number] Osteoarthrosis, localized, s econdary, ankle or foot 08/07/2015 04/02/2020 documented as of this encounter (statuses as of 07/08/2023) [facility]05-04-[facility]21 History of Past illness Narrative* Problem Noted Date Diagnosed Date Resolved Date Primary osteoarthritis of right hip 12/18/2020 12/19/2020 Osteoarthritis of ankle or foot 10/14/2017 04/02/2020 Overview: Added automatically from request for surgery [id number] Synovitis 10/14/2017 04/02/2020 Overview: Added automatically from request for surgery [id number] Osteoarthrosis, localized, s econdary, ankle or foot 08/07/2015 04/02/2020 documented as of this encounter (statuses as of 07/21/2023) [facility]05-04-[facility] History of Past illness Narrative* Problem Noted Date Diagnosed Date Resolved Date Primary osteoarthritis of right hip 12/18/2020 12/19/2020 Osteoarthritis of ankle or foot 10/14/2017 04/02/2020 Overview: Added automatically from request for surgery [id number] Synovitis 10/14/2017 04/02/2020 Overview: Added automatically from request for surgery [id number] Osteoarthrosis, localized, s econdary, ankle or foot 08/07/2015 04/02/2020 documented as of this encounter (statuses as of 07/21/2023) [facility]05-04-2021 NoteHNO ID: [id number] Author: My Olivas MD Service: Anesthesiology Author Type: Anesthesiologist Type: Anesthesia Procedure Notes Filed: 12/18/2020 10:21 AM Note Text: ANESTHESIOLOGY PROCEDURE NOTE Spinal Block General Information Procedure Start Time/Medication Administration: 12/18/2020 10:16 AM Procedure End time: 12/18/2020 10:17 AM Patient location during procedure: pre-op Timeout Performed Pre-procedure: timeout performed Consent Obtained: Yes Patient identity confirmed: arm band and patient Reason for Block: primary surgical anesthetic Staffing Anesthesiologist: My Olivas MD Performed by: anesthesiologist Preparation Sterility Preparation: hand hygiene performed prior to procedure, surgical cap used, mask used, sterile drape used during line insertion, skin prep agent completely dried prior to procedure Site Prep: Betadine Procedure Details Patient Position: sitting Monitoring: Pulse Ox, EKG and NIBP Approach: Midline Location: L3-4 Injection Technique: single-shot Needle Needle Type: pencil-tip Needle Gauge: 25 G Needle Length: 3.5 in Assessment Events: tolerated well Medications Administered Bupivacaine-dextrose 0.75 % (7.5 mg/mL) injection (SENSORCAINE MPF SPINAL), 2 mL midazolam (PF) injection (VERSED), 2 mg SIGNATURE: My Olivas MD PATIENT NAME: Jesus Wolf DATE: December 18, 2020 TIME: 10:20 AM CSN: [id number] History of Past illness Narrative* Problem Noted Date Diagnosed Date Resolved Date Osteoarthritis of ankle or foot 10/14/2017 04/02/2020 Overview: Added automatically from request for surgery [id number] Synovitis 10/14/2017 04/02/2020 Overview: Added automatically from request for surgery [id number] Osteoarthrosis, localized, s econdary, ankle or foot 08/07/2015 04/02/2020 documented as of this encounter (statuses as of 03/27/2023) [facility] Diagnosis Systemic lupus erythematosus, unspecified SLE type, unspecified organ involvement status (HCC)- Primary High risk medication use Encounter for long-term (current) use of other medications Long-term use of Plaquenil Encounter for long-term (current) use of other medications documented [facility] this [facility]* Diagnosis Systemic lupus erythematosus, unspecified SLE type, unspecified organ involvement status (HCC)- Primary High risk medication use Encounter for long-term (current) use of other medications documented in this encounter [facility] note* Diagnosis Diarrhea, unspecified type documented in this encounter [facility] note* Diagnosis Medication refill Issue of repeat prescriptions documented in this encounter [facility] note* Diagnosis Onset Date Resolution Status Acute alteration in mental status acute Acute UTI acute Headache acute [facility] Work Phone: evaluation note* Diagnosis Onset Date Resolution Status Acute alteration in mental status acute Acute UTI acute Generalized weakness acute Headache acute Lupus acute Obesity acute MONI (obstructive sleep apnea) acute HLD (hyperlipidemia) chronic HTN (hypertension) chronic [facility] Work Phone: evaluation note* Diagnosis Diarrhea, unspecified type- Primary documented in this encounter [facility] note* Diagnosis Systemic lupus erythematosus, unspecified SLE type, unspecified organ involvement status (HCC) High risk medication use Encounter for long-term (current) use of other medications documented in this encounter [facility] note* Diagnosis C. difficile diarrhea- Primary Intestinal infection due to clostridium difficile documented in this encounter [facility] note* Diagnosis Encounter for prophylactic measures, unspecified- Primary documented in this encounter [facility] note* Diagnosis Membranous lupus nephritis syndrome (HCC)- Primary Systemic lupus erythematosus High risk medication use Encounter for long-term (current) use of other medications Systemic lupus erythematosus, unspecified SLE type, unspecified organ involvement status (HCC) Asymptomatic postmenopausal status documented in this encounter [facility] note* Diagnosis Systemic lupus erythematosus, unspecified SLE type, unspecified organ involvement status (HCC)- Primary Membranous lupus nephritis syndrome (HCC) Systemic lupus erythematosus High risk medication use Encounter for long-term (current) use of other medications Encounter for prophylactic measures, unspecified [facility] Diagnosis Asymptomatic postmenopausal status documented in this encounter [facility] note* Diagnosis Asymptomatic postmenopausal status- Primary Membranous lupus nephritis syndrome (HCC) Systemic lupus erythematosus High risk medication use Encounter for long-term (current) use of other medications documented in this encounter [facility] note* Diagnosis High risk medication use Encounter for long-term (current) use of other medications Systemic lupus erythematosus, unspecified SLE type, unspecified organ involvement status (HCC) documented in this encounter [facility] note* Diagnosis Hypertrophic obstructive cardiomyopathy (HCC)- Primary documented in this encounter [facility] note* Diagnosis Osteopenia, unspecified location- Primary Vitamin D deficiency disease Unspecified vitamin D deficiency Serum calcium elevated Hypercalcemia Balance problem Other symptoms involving nervous and musculoskeletal systems documented in this encounter [facility] note* Diagnosis Diarrhea, unspecified type documented in this encounter [facility] note* Diagnosis Osteopenia, unspecified location- Primary Balance problem Other symptoms involving nervous and musculoskeletal systems Hypercalcemia Hyperparathyroid (HCC) documented in this encounter [facility] note* Diagnosis Primary osteoarthritis of both feet- Primary documented in this encounter [facility] note* Diagnosis Hypercalcemia Hyperparathyroid (HCC) Primary osteoarthritis of both feet documented in this encounter [facility] note* Diagnosis Systemic lupus erythematosus, unspecified SLE type, unspecified organ involvement status (HCC)- Primary Hyperparathyroid (HCC) Primary osteoarthritis of both feet documented in this encounter [facility] note* Diagnosis Systemic lupus erythematosus, unspecified SLE type, unspecified organ involvement status (HCC)- Primary Primary osteoarthritis of both feet documented in this encounter [facility] note* Diagnosis Hyperparathyroidism (HCC)- Primary Hyperparathyroidism, unspecified Primary osteoarthritis of both feet documented in this encounter [facility] note* Diagnosis Hypercalcemia Hyperparathyroid (HCC) Primary hyperparathyroidism (HCC)- Primary Primary hyperparathyroidism Primary osteoarthritis of both feet documented in this encounter [facility] note* Diagnosis Hyperparathyroidism (HCC) Hyperparathyroidism, unspecified Primary osteoarthritis of both feet documented in this encounter [facility] note* Diagnosis Hypercalcemia Hyperparathyroid (HCC) Primary osteoarthritis of both feet Primary hyperparathyroidism (HCC) Primary hyperparathyroidism documented in this encounter [facility] note* Diagnosis Pre-op evaluation- Primary Preoperative examination, unspecified Ascending aortic aneurysm, unspecified whether ruptured Obesity, Class II, BMI 35-39.9 Obesity, unspecified Mixed hyperlipidemia Acquired hypothyroidism Unspecified hypothyroidism Chronic diastolic congestive heart failure (HCC) Chronic diastolic heart failure Obstructive sleep apnea syndrome Obstructive sleep apnea (adult) (pediatric) Systemic lupus erythematosus, unspecified SLE type, unspecified organ involvement status (HCC) Fibromyalgia Mylagia and myositis, unspecified Essential hypertension Unspecified essential hypertension Paroxysmal atrial fibrillation (HCC) Atrial fibrillation Obesity, Class III, BMI >= 40 Morbid obesity Primary hyperparathyroidism (HCC) Primary hyperparathyroidism documented in this encounter [facility] note* Diagnosis Hyperparathyroidism (HCC)- Primary Hyperparathyroidism, unspecified Primary hyperparathyroidism (HCC) Primary hyperparathyroidism documented [facility] this encounter [facility]* Diagnosis Systemic lupus erythematosus, unspecified SLE type, unspecified organ involvement status ([facility])- Primary [facility] this encounter [facility]* Diagnosis Mixed hyperlipidemia [facility]* Diagnosis C. 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 documented in this encounter [facility] note* Diagnosis Diarrhea, unspecified type documented in this encounter [facility] note* Diagnosis Diarrhea, unspecified type documented in this encounter [facility] note* Diagnosis Primary osteoarthritis of both feet- Primary Primary osteoarthritis of both feet documented in this encounter [facility] note* Diagnosis Systemic lupus erythematosus, unspecified SLE type, unspecified organ involvement status ([facility])- Primary High risk medication use Encounter for long-term (current) use of other medications documented in this encounter [facility] note* Diagnosis Diarrhea, unspecified type- Primary [facility]* Diagnosis Diarrhea, unspecified type [facility]* Diagnosis Ulcer of toe of right foot, limited to breakdown of skin ([facility])- Primary Pre-ulcerative calluses Corns and callosities [facility] Diagnosis Systemic lupus erythematosus, unspecified SLE type, unspecified organ involvement status ([facility])- Primary Need for vaccination against Streptococcus pneumoniae Need for prophylactic vaccination against streptococcus pneumoniae (pneumococcus) documented in this encounter [facility] note* Diagnosis Chronic diastolic heart failure (HCC)- Primary Chronic diastolic heart failure [facility]* Diagnosis Ulcer of toe of right foot, limited to breakdown of skin (HCC)- Primary Pre-ulcerative calluses Corns and callosities Cellulitis of second toe of right foot Cellulitis and abscess of toe, unspecified documented in this encounter [facility] note* Diagnosis Systemic lupus erythematosus, unspecified SLE type, unspecified organ involvement status ([facility]) High risk medication use Encounter for long-term (current) use of other medications documented in this encounter [facility] note* Diagnosis IBD (inflammatory bowel disease)- Primary Other and unspecified noninfectious gastroenteritis and colitis [facility] Diagnosis Ulcer of toe of right foot, limited to breakdown of skin (HCC)- Primary Pre-ulcerative calluses Corns and callosities [facility] Diagnosis Systemic lupus erythematosus, unspecified SLE type, unspecified organ involvement status (HCC)- Primary [facility] Diagnosis Diarrhea, unspecified type Epigastric pain Abdominal pain, epigastric [facility] Diagnosis Calculus of gallbladder without cholecystitis without obstruction Calculus of gallbladder without mention of cholecystitis or obstruction [facility] Diagnosis IBD (inflammatory bowel disease) Other and unspecified noninfectious gastroenteritis and colitis [facility] Diagnosis Systemic lupus erythematosus, unspecified SLE type, unspecified organ involvement status (HCC)- Primary Thin blood (HCC) Thrombocytopenia, unspecified [facility] Diagnosis Other ulcerative colitis without complication (HCC)- Primary Gastroesophageal reflux disease without esophagitis Esophageal reflux [facility]* Diagnosis Diarrhea, unspecified type [facility] Diagnosis Mixed hyperlipidemia- Primary Hypomagnesemia Disorders of magnesium metabolism [facility] Diagnosis Chronic kidney disease, unspecified CKD stage- Primary Systemic lupus erythematosus, unspecified SLE type, unspecified organ involvement status (HCC) [facility] Diagnosis Systemic lupus erythematosus, unspecified SLE type, unspecified organ involvement status (HCC)- Primary High risk medication use Encounter for long-term (current) use of other medications [facility] Diagnosis Pain in left foot- Primary Pain in limb [facility] Diagnosis Ulcer of toe of right foot, limited to breakdown of skin (HCC)- Primary Pre-ulcerative calluses Corns and callosities Osteoarthritis of midtarsal joint of left foot Osteoarthritis of midtarsal joint of right foot [facility]* Diagnosis Primary osteoarthritis of both feet- Primary Primary osteoarthritis of both feet [facility]* Diagnosis Viral upper respiratory tract infection- Primary Acute upper respiratory infections of unspecified site [facility] Orders* Initiate Home Health Time Frame: 1 Day, Location: Determined By Patient Additional Instructions Home Health to manage care: - Full code - PT/OT eval and treat - Routine vital signs - Medication management and education - [facility] Work Phone: InstructionsNot on filedocumented in this encounter [facility] filedocumented in this encounter [facility] Diagnostic Procedure Only (Routine) - Authorized Specialty Diagnoses / Procedures Referred By Fariba rowley Referred To Contact MOLECULAR & FUNCTIONAL IMAGING Diagnoses Hyperparathyroidism (HCC) Procedures NM PARATHYROID W SPECT/CT PARATHYROID IMAGING W/TOMOGRAPHIC SPECT & CT Bryan Painting MD [address] [id number] Molecular & Functional Imaging [address] [place] [address] Referral ID Status Reason Start Date Expiration Date Visits Requested Visits Authorized [id number] Authorized Auto-Generat ed Referral 07/31/2023 1 1 [facility] for referral (narrative)* Diagnostic Procedure Only (Routine) - Closed Specialty Diagnoses / Procedures Referred By Fariba rowley Referred To Contact MOLECULAR & FUNCTIONAL IMAGING Diagnoses Hyperparathyroidism (HCC) Procedures NM PARATHYROID W SPECT/CT PARATHYROID IMAGING W/TOMOGRAPHIC SPECT & CT Bryan Painting MD [address] [place] [address] Molecular & Functional Imaging [address] [place] [address] Referral ID Status Reason Start Date Expiration Date V isits Requested Visits Authorized [id number] Closed Auto-Generate d Referral 07/01/2022 07/31/2023 1 1 [facility] for referral (narrative)* Outpatient Procedure (Routine) - Authorized Specialty Diagnoses / Procedures Referred By Contac t Referred To [facility] Diagnoses IBD (inflammatory bowel disease) Procedures COLONOSCOPY DIAGNOSTIC COLONOSCOPY FLX DX W/COLLJ SPEC WHEN Dione Starr MD [address] [place] [address] [address] Referral ID Status Reason Start Date Expiration Date Visits Requested Visits Authorized [id number] Authorized Auto-Generat ed Referral 2023 02/19/2024 1 1 [facility] for referral (narrative)* Outpatient Procedure (Routine) - Closed Specialty Diagnoses / Procedures Referred By Contac t Referred To [facility] Diagnoses Diarrhea, unspecified type Epigastric pain Procedures EGD DIAGNOSTIC ESOPHAGOGASTRODUODENOSC OPY TRANSORAL DIAGNOSTIC Dione Reinoso MD [address] [place] [address] [address] Referral ID Status Reason Start Date Expiration Date V isits Requested Visits Authorized [id number] Closed Auto-Generate d Referral 09/10/2021 09/10/2022 1 1 * Outpatient Procedure (Routine) - Closed Specialty Diagnoses / Procedures Referred By Contac t Referred To [facility] Diagnoses Diarrhea, unspecified type Epigastric pain Procedures COLONOSCOPY DIAGNOSTIC COLONOSCOPY FLX DX W/COLLJ SPEC WHEN Dione Starr MD [address] [facility] [place] [address] [address] Referral ID Status Reason Start Date Expiration Date V isits Requested Visits Authorized [id number] Closed Auto-Generate d Referral 09/10/2021 09/10/2022 1 1 [facility] for referral (narrative)* Outpatient Procedure (Routine) - Closed Specialty Diagnoses / Procedures Referred By Contac t Referred To Contact [facility] Diagnoses IBD (inflammatory bowel disease) Procedures COLONOSCOPY DIAGNOSTIC COLONOSCOPY FLX DX W/COLLJ SPEC WHEN Dione Starr MD [address] [place] [address] [facility] [address] [place] [address] Referral ID Status Reason Start Date Expiration Date V isits Requested Visits Authorized [id number] Closed Auto-Generate d Referral 2023 02/19/2024 1 1 [facility] for referral (narrative)* Diagnostic Procedure Only (Routine) - Pending Review Specialty Diagnoses / Procedures Referred By Contac t Referred To Contact XR IMAGING Diagnoses Pain in left foot Procedures XR FOOT GENERAL 3V AP/LAT/OBL LEFT RADEX FOOT COMPLETE MINIMUM 3 VIEWS Beverly Franco, DPM [address] [place] [address] Xr Imaging [facility]95 Referral ID Status Reason Start Date Expiration Date Visits Requested Visits Authorized [id number] Pending Review Auto-Generat ed Referral 07/31/2024 1 1 [facility] for visit Narrative* Diagnostic Procedure Only (Routine) - Closed Specialty Diagnoses / Procedures Referred By Contac t Referred To Contact MOLECULAR & FUNCTIONAL IMAGING Diagnoses Hyperparathyroidism (HCC) Procedures NM PARATHYROID W SPECT/CT PARATHYROID IMAGING W/TOMOGRAPHIC SPECT & CT Bryan Painting MD [address] [place] [address] Molecular & Functional Imaging [address] [place] [address] Referral ID Status Reason Start Date Expiration Date V isits Requested Visits Authorized [id number] Closed Auto-Generate d Referral 07/01/2022 07/31/2023 1 1 [facility] for visit Narrative* Outpatient Procedure (Routine) - Closed Specialty Diagnoses / Procedures Referred By Contgale rowley Referred To Contact [facility] Diagnoses Diarrhea, unspecified type Epigastric pain Procedures EGD DIAGNOSTIC ESOPHAGOGASTRODUODENOSC OPY TRANSORAL DIAGNOSTIC Dione Reinoso MD [address] [place] [place] [address] [address] Referral ID Status Reason Start Date Expiration Date V isits Requested Visits Authorized [id number] Closed Auto-Generate d Referral 09/10/2021 09/10/2022 1 1 [facility] for visit Narrative* Outpatient Procedure (Routine) - Closed Specialty Diagnoses / Procedures Referred By Fariba rowley Referred To Contact [facility] Diagnoses IBD (inflammatory bowel disease) Procedures COLONOSCOPY DIAGNOSTIC COLONOSCOPY FLX DX W/COLLJ SPEC WHEN PFRMD Dione Reinoso MD [address] [place] [place] [address] [address] Referral ID Status Reason Start Date Expiration Date V isits Requested Visits Authorized [id number] Closed Auto-Generate d Referral 2023 02/19/2024 1 1 [facility] Summary Purpose Family History Relationship Condition Age at Onset Recorded Date/T myrtle Not Specified Hypertension Unknown Unknown Family Member Name Dates Details Family history of malignant neoplasm: Mother(V16.9, Z80.9) Status:Active Family history of cardiac di sorder: Mother, Father(V17.49, Z82.49) Status:Active Family history of hyperlipid emia: Mother, Father(V18.19, Z83.438) Status:Active Family history of hypertensi on: Mother, Father(V17.49, Z82.49) Status:Active Unknown Family Member Name Dates Details Family history of malignant neoplasm: Mother(V16.9, Z80.9) Status:Active Family history of cardiac di sorder: Mother, Father(V17.49, Z82.49) Status:Active Family history of hyperlipid emia: Mother, Father(V18.19, Z83.438) Status:Active Family history of hypertensi on: Mother, Father(V17.49, Z82.49) Status:Active Unknown Family Member Name Dates Details Family history of malignant neoplasm: Mother(V16.9, Z80.9) Status:Active Family history of cardiac di sorder: Mother, Father(V17.49, Z82.49) Status:Active Family history of hyperlipid emia: Mother, Father(V18.19, Z83.438) Status:Active Family history of hypertensi on: Mother, Father(V17.49, Z82.49) Status:Active Unknown Family Member Name Dates Details Family history of malignant neoplasm: Mother(V16.9, Z80.9) Status:Active Family history of cardiac di sorder: Mother, Father(V17.49, Z82.49) Status:Active Family history of hyperlipid emia: Mother, Father(V18.19, Z83.438) Status:Active Family history of hypertensi on: Mother, Father(V17.49, Z82.49) Status:Active Unknown Family Member Name Dates Details Family history of malignant neoplasm: Mother(V16.9, Z80.9) Status:Active Family history of cardiac di sorder: Mother, Father(V17.49, Z82.49) Status:Active Family history of hyperlipid emia: Mother, Father(V18.19, Z83.438) Status:Active Family history of hypertensi on: Mother, Father(V17.49, Z82.49) Status:Active Unknown Family Member Name Dates Details Family history of malignant neoplasm: Mother(V16.9, Z80.9) Status:Active Family history of cardiac di sorder: Mother, Father(V17.49, Z82.49) Status:Active Family history of hyperlipid emia: Mother, Father(V18.19, Z83.438) Status:Active Family history of hypertensi on: Mother, Father(V17.49, Z82.49) Status:Active Unknown Family Member Name Dates Details Family history of malignant neoplasm: Mother(V16.9, Z80.9) Status:Active Family history of cardiac di sorder: Mother, Father(V17.49, Z82.49) Status:Active Family history of hyperlipid emia: Mother, Father(V18.19, Z83.438) Status:Active Family history of hypertensi on: Mother, Father(V17.49, Z82.49) Status:Active Advance Directives Documents on File Type Date Recorded 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 Advance Directive(s) Advance Directive(s) 10/25/2021 12:01 PM Advance Directive(s) 10/23/2021 5:50 PM Advance Directive(s) 09/12/2021 6:34 AM Advance Directive(s) 12/18/2020 7:36 AM Advance Directive(s) 12/06/2020 2:25 PM Advance Directive(s) 11/30/2020 2:39 PM Advance Directive(s) 10/22/2020 11:14 AM Advance Directive(s) 07/23/2020 9:48 AM Advance Directive(s) 06/14/2020 10:44 AM Advance Directive(s) 01/11/2020 1:39 PM Advance Directive(s) 01/10/2020 8:48 AM Advance Directive(s) 01/17/2019 10:26 AM Advance Directive(s) 08/16/2018 11:53 AM Advance Directive(s) 05/10/2018 9:44 AM Advance Directive(s) 11/02/2017 1:25 PM Advance Directive(s) 07/31/2016 2:08 PM Advance Directive(s) 02/12/2016 2:57 PM Documents on File Type Date Recorded 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 Advance Directive(s) Advance Directive(s) 10/25/2021 12:01 PM Advance Directive(s) 10/23/2021 5:50 PM Advance Directive(s) 09/12/2021 6:34 AM Advance Directive(s) 12/18/2020 7:36 AM Advance Directive(s) 12/06/2020 2:25 PM Advance Directive(s) 11/30/2020 2:39 PM Advance Directive(s) 10/22/2020 11:14 AM Advance Directive(s) 07/23/2020 9:48 AM Advance Directive(s) 06/14/2020 10:44 AM Advance Directive(s) 01/11/2020 1:39 PM Advance Directive(s) 01/10/2020 8:48 AM Advance Directive(s) 01/17/2019 10:26 AM Advance Directive(s) 08/16/2018 11:53 AM Advance Directive(s) 05/10/2018 9:44 AM Advance Directive(s) 11/02/2017 1:25 PM Advance Directive(s) 07/31/2016 2:08 PM Advance Directive(s) 02/12/2016 2:57 PM Advance Directive Response Recorded Date/ Time Advance Directives No June 18, 2017 4:00pm Medications Administered Section Inactive Administered Medications - up to 3 most recent administrations Medication Order MAR Action Action Date Dose Rate Site acetaminophen 1,000 mg tab(s) (TYLENOL) 1,000 mg, ORAL, ONCE, 1 dose, On Thu12/09/21 at 1130 Given 12/09/2021 12:15 PM EDT 1,000 mg belimumab 1,000 mg in NaCl 0.9% 250 mL (BENLYSTA) 1,000 mg, INTRAVENOUS, at 250 mL/hr, Administer over 60 Minutes, ONCE, 1 dose, On Thu12/09/21 at 1130, 8 hour expiration time: --- Protect From Light --- Total Volume: 250 mL Protect From Light New Bag/Syringe/Bottle 12/09/2021 12:56 PM EDT 1,000 mg 125 mL/hr methylPREDNISolone sod succinate(PF) 60 mg injection (SOLU-Medrol) 60 mg, INTRAVENOUS, ONCE, 1 dose, On Thu12/09/21 at 1130 Given 12/09/2021 12:15 PM EDT 60 mg Inactive Administered Medications - up to 3 most recent administrations Medication Order MAR Action Action Date Dose Rate Site acetaminophen 1,000 mg tab(s) (TYLENOL) 1,000 mg, ORAL, ONCE, 1 dose, On Thu03/13/22 at 1200 Given 03/13/2022 11:58 AM EDT 1,000 mg belimumab 1,000 mg in NaCl 0.9% 250 mL (BENLYSTA) 1,000 mg, INTRAVENOUS, at 250 mL/hr, Administer over 60 Minutes, ONCE, 1 dose, On Thu03/13/22 at 1200, 8 hour expiration time: --- Protect From Light --- Total Volume: 250 mL Protect From Light New Bag/Syringe/Bottle 03/13/2022 12:32 PM EDT 1,000 mg 125 mL/hr methylPREDNISolone sod succinate(PF) 60 mg injection (SOLU-Medrol) 60 mg, INTRAVENOUS, ONCE, 1 dose, On Theresa 03/13/22 at 1200 Given 03/13/2022 11:58 AM EDT 60 mg Inactive Administered Medications - up to 3 most recent administrations Medication Order MAR Action Action Date Dose Rate Site cilgavimab 300 mg intramuscular injection (EVUSHELD) 300 mg, INTRAMUSCULAR, ONCE (UP TO 30 DAYS AMB), 1 dose, On Thu03/13/22 at 1230, Administer tixagevimab and cilgavimab as separate IM injections - preferably one in each of the gluteal muscles, one after the other. EXP: (4 HR). Refrigerate - Protect from Light. Observe patient for at least 1 hour after injection(s) administered., Prior to the patient receiving tixagevimab and cilgavimab, patient has been given the Fact Sheet for Patients and Parents/Caregivers. Yes, Prior to the patient receiving tixagevimab and cilgavimab, patient has been informed that tixagevimab and cilgavimab is an unapproved drug that is authorized for use under EUA. Yes, AMB MED ORDERS Given 03/13/2022 12:58 PM EDT 300 mg Buttocks, Left tixagevimab 300 mg intramuscular injection (EVUSHELD) 300 mg, INTRAMUSCULAR, ONCE (UP TO 30 DAYS AMB), 1 dose, On Theresa 03/13/22 at 1230, Administer tixagevimab and cilgavimab as separate IM injections - preferably one in each of the gluteal muscles, one after the other. EXP: (4 HR). Refrigerate - Protect from Light. Observe patient for at least 1 hour after injection(s) administered., AMB MED ORDERS Given 03/13/2022 12:58 PM EDT 300 mg Buttocks, Right Inactive Administered Medications - up to 3 most recent administrations Medication Order MAR Action Action Date Dose Rate Site acetaminophen 1,000 mg tab(s) (TYLENOL) 1,000 mg, ORAL, ONCE, 1 dose, On Theresa 06/12/22 at 1300 Given 06/12/2022 12:50 PM EDT 1,000 mg belimumab 1,000 mg in NaCl 0.9% 250 mL (BENLYSTA) 1,000 mg, INTRAVENOUS, at 250 mL/hr, Administer over 60 Minutes, ONCE, 1 dose, On Theresa 06/12/22 at 1300, 8 hour expiration time: --- Protect From Light --- Total Volume: 250 mL Protect From Light New Bag/Syringe/Bottle 06/12/2022 1:28 PM EDT 1,000 mg 125 mL/hr methylPREDNISolone sod succinate(PF) 60 mg injection (SOLU-Medrol) 60 mg, INTRAVENOUS, ONCE, 1 dose, On [facility] 06/12/22 at 1300 Given 06/12/2022 1:00 PM EDT 60 mg Inactive Administered Medications - up to 3 most recent administrations Medication Order MAR Action Action Date Dose Rate Site acetaminophen 1,000 mg tab(s) (TYLENOL) 1,000 mg, ORAL, ONCE, 1 dose, On Thu09/15/22 at 1030 Given 09/15/2022 10:20 AM EST 1,000 mg belimumab 1,000 mg in NaCl 0.9% 250 mL (BENLYSTA) 1,000 mg, INTRAVENOUS, at 125 mL/hr, Administer over 120 Minutes, ONCE, 1 dose, On Thu09/15/22 at 1030, EXP: 09/15/22 1600 --- Protect From Light --- Total Volume: 250 mL Protect From Light New Bag/Syringe/Bottle 09/15/2022 10:55 AM EST 1,000 mg 125 mL/hr methylPREDNISolone sod succinate(PF) 60 mg injection (SOLU-Medrol) 60 mg, INTRAVENOUS, ONCE, 1 dose, On Thu09/15/22 at 1030 Given 09/15/2022 10:25 AM EST 60 mg Inactive Administered Medications - up to 3 most recent administrations Medication Order MAR Action Action Date Dose Rate Site acetaminophen 1,000 mg tab(s) (TYLENOL) 1,000 mg, ORAL, ONCE, 1 dose, On Thu12/15/22 at 1000 Given 12/15/2022 10:12 AM EDT 1,000 mg belimumab 1,000 mg in NaCl 0.9% 250 mL (BENLYSTA) 1,000 mg, INTRAVENOUS, at 125 mL/hr, Administer over 120 Minutes, ONCE, 1 dose, On Thu12/15/22 at 1000, EXP: 12/15/22 1600 --- Protect From Light --- Total Volume: 250 mL Protect From Light New Bag/Syringe/Bottle 12/15/2022 10:44 AM EDT 1,000 mg 125 mL/hr methylPREDNISolone sod succinate(PF) 60 mg injection (SOLU-Medrol) 60 mg, INTRAVENOUS, ONCE, 1 dose, On 12/15/22 at 1000 Given 12/15/2022 10:19 AM EDT 60 mg Inactive Administered Medications - up to 3 most recent administrations Medication Order MAR Action Action Date Dose Rate Site acetaminophen 1,000 mg tab(s) (TYLENOL) 1,000 mg, ORAL, ONCE, 1 dose, On Thu03/19/23 at 1000 Given 03/19/2023 10:14 AM EDT 1,000 mg belimumab 1,000 mg in NaCl 0.9% 250 mL (BENLYSTA) 1,000 mg, INTRAVENOUS, at 125 mL/hr, Administer over 120 Minutes, ONCE, 1 dose, On Thu03/19/23 at 1000, 8 hour expiration time: 1600 03/19/23 --- Protect From Light --- Total Volume: 250 mL Protect From Light New Bag/Syringe/Bottle 03/19/2023 10:37 AM EDT 1,000 mg 125 mL/hr methylPREDNISolone sod succinate(PF) 60 mg injection (SOLU-Medrol) 60 mg, INTRAVENOUS, ONCE, 1 dose, On Thu03/19/23 at 1000 Given 03/19/2023 10:20 AM EDT 60 mg Inactive Administered Medications - up to 3 most recent administrations Medication Order MAR Action Action Date Dose Rate Site benzocaine 20% 1 [place] (TOPEX) 1 [place], TOPICAL, DIRECTED, Starting on Thu09/12/21 at 0800, Until Thu09/12/21 at 1159, DOSING DIRECTED BY PHYSICIAN FOR PROCEDURAL SEDATION ONLY - Pharmaceutical Waste: Aerosol -, Intraprocedure Given 09/12/2021 7:43 AM EST 1 [place] NaCl 0.9% iv infusion 30 mL/hr, INTRAVENOUS, CONTINUOUS, Starting on Thu09/12/21 at 0730, Until Thu09/12/21 at 0702, Preprocedure New Bag/Syringe/Bottle 09/12/2021 7:20 AM EST 30 mL/hr 30 mL/hr Inactive Administered Medications - up to 3 most recent administrations Medication Order MAR Action Action Date Dose Rate Site NaCl 0.9% iv infusion 30 mL/hr, INTRAVENOUS, CONTINUOUS, Starting on Thu04/02/23 at 0730, Until Theresa 04/02/23 at 0900, Preprocedure New Bag/Syringe/Bottle 04/02/2023 7:16 AM EDT 30 mL/hr 30 mL/hr Inactive Administered Medications - up to 3 most recent administrations Medication Order MAR Action Action Date Dose Rate Site acetaminophen 1,000 mg tab(s) (TYLENOL) 1,000 mg, ORAL, ONCE, 1 dose, On Thu07/01/23 at 0900 Given 07/01/2023 9:11 AM EST 1,000 mg belimumab 1,000 mg in NaCl 0.9% 250 mL (BENLYSTA) 1,000 mg, INTRAVENOUS, at 125 mL/hr, Administer over 120 Minutes, ONCE, 1 dose, On Thu07/01/23 at 0900, 8 hour expiration time: 1600 07/01/23 room temp --- Protect From Light --- Total Volume: 250 mL Protect From Light New Bag/Syringe/Bottle 07/01/2023 9:42 AM EST 1,000 mg 125 mL/hr methylPREDNISolone sod succinate(PF) 60 mg injection (SOLU-Medrol) 60 mg, INTRAVENOUS, ONCE, 1 dose, On Thu07/01/23 at 0900 Given 07/01/2023 9:16 AM EST 60 mg Chief Complaint and Reason for Visit Chief Complaint jaw pain Reason for Visit Acute alteration in mental status Acute UTI Headache Chief Complaint jaw pain Reason for Visit Acute alteration in mental status Acute UTI Generalized weakness Headache Lupus Obesity MONI (obstructive sleep apnea) HLD (hyperlipidemia) HTN (hypertension) Chief Complaint jaw pain Diarrhea x 3 days Reason for Visit Acute alteration in mental status Acute UTI Generalized weakness Headache Lupus Obesity MONI (obstructive sleep apnea) HLD (hyperlipidemia) HTN (hypertension) Reason for Referral Specialty Diagnoses / Procedures Referred By Fariba rowley Referred To Contact Diagnoses High risk medication use Systemic lupus erythematosus, unspecified SLE type, unspecified organ involvement status ([facility]) Evelin Abel MD [address] [place] [address] Referral ID Status Reason Start Date Expiration Date Visits Re quested Visits Authorized [id number] Closed 1 1 Specialty Diagnoses / Procedures Referred By Contac t Referred To Contact MR IMAGING Diagnoses Hypertrophic obstructive cardiomyopathy (HCC) Procedures MRI CARDIAC VELOCITY FLOW MAP CARDIAC MRI FOR VELOCITY FLOW MAPPING Mann Ramos MD [address] [facility] [place] [address] Mr Imaging Referral ID Status Reason Start Date Expiration Date Visits Requested Visits Authorized [id number] Pending Review Auto-Generat ed Referral 03/27/2022 04/26/2023 1 1 Specialty Diagnoses / Procedures Referred By Contac t Referred To Contact MR IMAGING Diagnoses Hypertrophic obstructive cardiomyopathy (HCC) Procedures MRI CARDIAC MORPH FUNC WO/W IVCON CARDIAC MRI W/WO CONTRAST & FURTHER SEQ Mann Ramos MD [address] [place] [address] Mr Imaging Referral ID Status Reason Start Date Expiration Date Visits Requested Visits Authorized [id number] Pending Review Auto-Generat ed Referral 03/27/2022 04/26/2023 1 1 Specialty Diagnoses / Procedures Referred By Contac t Referred To [facility] Diagnoses Hypertrophic obstructive cardiomyopathy (HCC) Procedures ECHO ECHO TTHRC R-T 2D W/WOM-MODE COMPL SPEC&COLR D Mann Ramos MD [address] [place] [address] [place] [address] Referral ID Status Reason Start Date Expiration Date Visits Requested Visits Authorized [id number] Pending Review Auto-Generat ed Referral 03/27/2022 03/27/2023 1 1 Specialty Diagnoses / Procedures Referred By Contac t Referred To Contact [facility] Diagnoses Hypertrophic obstructive cardiomyopathy (HCC) Procedures ECG COMPLETE ECG ROUTINE ECG W/LEAST 12 LDS W/I&R Mann Ramos MD [address] [place] [address] [place] [address] Referral ID Status Reason Start Date Expiration Date Visits Requested Visits Authorized [id number] Pending Review Auto-Generat ed Referral 03/27/2022 03/27/2023 1 1 Specialty Diagnoses / Procedures Referred By Contac t Referred To Contact Endocrinology Diagnoses Hypercalcemia Hyperparathyroid (HCC) Procedures CONSULT TO [facility]CRINOLOGY OFFICE[facility] 60-74 [facility]UTES Julia Peña PA-C [address] [phone] Referral ID Status Reason Start Date Expiration Date Visits Requested Visits Authorized [id number] Authorized PCP Requested Referral 05/12/2022 05/12/2023 1 1 Specialty Diagnoses / Procedures Referred By Contac t Referred To Contact Diagnoses Hypercalcemia Hyperparathyroid (HCC) Procedures CONSULT TO ENDOCRINE SURGERY OFFICE[facility] 60-74 MINUTES Lemuel Bejarano V, MD [address] [phone] Referral ID Status Reason Start Date Expiration Date Visits Requested Visits Authorized [id number] Authorized PCP Requested Referral 06/11/2023 1 1 Specialty Diagnoses / Procedures Referred By Contgale t Referred To Contact Nephrology Diagnoses Chronic kidney disease, unspecified CKD stage Systemic lupus erythematosus, unspecified SLE type, unspecified organ involvement status (HCC) Procedures CONSULT TO NEPHROLOGY OFFICE[facility] 60-74 MINUTES Nadege Hawkins DO [address] [facility], [address] [phone] Referral ID Status Reason Start Date Expiration Date Visits Requested Visits Authorized [id number] Authorized PCP Requested Referral 04/27/2023 04/26/2024 1 1 Chief Complaint JESUS WOLF is being seen for an annual follow-up of.* JESUS WOLF is being seen for an annual follow-up of. * Patient is in the office after more than 2 years hiatus [facility]. [facility] is in need for cardiac clearance prior to surgery. The patient has done well in thelast couple of years but was not very happy with the care she was receiving at the [facility]. She had ablation for atrial fibrillation couple years back at [facility] with Dr. Chino with no recurrences. She is not on antiarrhythmic therapy but has been on anticoagulation with Eliquis. She has no indication previous coronary heart disease but never had a stress test or cardiac catheterization. Her last echocardiogram from September 2021 at the [facility] revealed mildly dila manjinder ascending aorta at 4.6 cm. The rest of the study was unremarkable. Patient denies any palpitations orthopnea PND or lower extremity edema. Her weight remains a problem for her and she is trying to lose weight. She has sleep apnea but intolerant to CPAP machine. Review of system essentially unrem arkable from a cardiovascular standpoint. Other review of system was unremarkable as well. Her physical examination is unremarkable for obesity. Her medication were reviewed which have been well-tolerated. * ASSESSMENT AND PLAN: * 1. Paroxysmal atrial fibrillation, status post successful radiofrequency ablation with pulmonary vein isolation at [facility] in 2019. She will continue on Eliquis EKG today confirmed normalsinus rhythm. * 2. Sleep apnea, unable to utilize CPAP machine. She utilizes oxygen at night. * 3. Systemic lupus, in remission, on medical therapy. * 4. Severe obesity, patient is trying to lose weight with lifestyle modification and seems to be motivated. * 5. Hyperlipidemia, on medical therapy, currently on 40 mg daily of atorvastatin. Lipid profile has been monitored closely and has been under control. * 6. High-risk medication, on Eliquis no bleeding complications * 7. Hypertension, on medical therapy, under control. * 8. Systemic Lupus managed by rheumatology at [facility] on multiple medications and stable * 9. Hypercalcemia caused by hyperparathyroidism for which the patient is contemplating surgery and need cardiac clearance. Since she did not have any previous cardiac investigation for ischemic heart disease should be scheduled for Lexiscan perfusion study. * 10. Ascending aortic aneurysm measured 4.6 cm from echocardiogram September 2021, follow-up study inthis coming September was scheduled. Controlling hypertension and keeping past medication was advised. * Yuriy Conway MD, [facility] * JESUS WOLF is being seen for an annual follow-up of. * Patient is in the office after more than 2 years hiatus [facility] She is in need for cardiac clearance prior to surgery. The patient has done well in thelast couple of years but was not very happy with the care she was receiving at the [facility]. She had ablation for atrial fibrillation couple years back at [facility] with Dr. Chino with no recurrences. She is not on antiarrhythmic therapy but has been on anticoagulation with Eliquis. She has no indication previous coronary heart disease but never had a stress test or cardiac catheterization. Her last echocardiogram from September 2021 at the [facility] revealed mildly dila manjinder ascending aorta at 4.6 cm. The rest of the study was unremarkable. Patient denies any palpitations orthopnea PND or lower extremity edema. Her weight remains a problem for her and she is trying to lose weight. She has sleep apnea but intolerant to CPAP machine. Review of system essentially unrem arkable from a cardiovascular standpoint. Other review of system was unremarkable as well. Her physical examination is unremarkable for obesity. Her medication were reviewed which have been well-tolerated. * ASSESSMENT AND PLAN: * 1. Paroxysmal atrial fibrillation, status post successful radiofrequency ablation with pulmonary vein isolation at [facility] in 2019. She will continue on Eliquis EKG today confirmed normalsinus rhythm. * 2. Sleep apnea, unable to utilize CPAP machine. She utilizes oxygen at night. * 3. Systemic lupus, in remission, on medical therapy. * 4. Severe obesity, patient is trying to lose weight with lifestyle modification and seems to be motivated. * 5. Hyperlipidemia, on medical therapy, currently on 40 mg daily of atorvastatin. Lipid profile has been monitored closely and has been under control. * 6. High-risk medication, on Eliquis no bleeding complications * 7. Hypertension, on medical therapy, under control. * 8. Systemic Lupus managed by rheumatology at [facility] on multiple medications and stable * 9. Hypercalcemia caused by hyperparathyroidism for which the patient is contemplating surgery and need cardiac clearance. Since she did not have any previous cardiac investigation for ischemic heart disease should be scheduled for Lexiscan perfusion study. * 10. Ascending aortic aneurysm measured 4.6 cm from echocardiogram September 2021, follow-up study inthis coming September was scheduled. Controlling hypertension and keeping past medication was advised. * Yuriy Conway MD, FACC * JESUS WOLF is being seen for an annual follow-up of. * Patient is in the office after more than 2 years hiatus [facility]. She is in need for cardiac clearance prior to surgery. The patient has done well in thelast couple of years but was not very happy with the care she was receiving at the [facility]. She had ablation for atrial fibrillation couple years back at [facility] with Dr. Chino with no recurrences. She is not on antiarrhythmic therapy but has been on anticoagulation with Eliquis. She has no indication previous coronary heart disease but never had a stress test or cardiac catheterization. Her last echocardiogram from September 2021 at the [facility] revealed mildly dila manjinder ascending aorta at 4.6 cm. The rest of the study was unremarkable. Patient denies any palpitations orthopnea PND or lower extremity edema. Her weight remains a problem for her and she is trying to lose weight. She has sleep apnea but intolerant to CPAP machine. Review of system essentially unrem arkable from a cardiovascular standpoint. Other review of system was unremarkable as well. Her physical examination is unremarkable for obesity. Her medication were reviewed which have been well-tolerated. * ASSESSMENT AND PLAN: * 1. Paroxysmal atrial fibrillation, status post successful radiofrequency ablation with pulmonary vein isolation at [facility] in 2019. She will continue on Eliquis EKG today confirmed normalsinus rhythm. * 2. Sleep apnea, unable to utilize CPAP machine. She utilizes oxygen at night. * 3. Systemic lupus, in remission, on medical therapy. * 4. Severe obesity, patient is trying to lose weight with lifestyle modification and seems to be motivated. * 5. Hyperlipidemia, on medical therapy, currently on 40 mg daily of atorvastatin. Lipid profile has been monitored closely and has been under control. * 6. High-risk medication, on Eliquis no bleeding complications * 7. Hypertension, on medical therapy, under control. * 8. Systemic Lupus managed by rheumatology at [facility] on multiple medications and stable * 9. Hypercalcemia caused by hyperparathyroidism for which the patient is contemplating surgery and need cardiac clearance. Since she did not have any previous cardiac investigation for ischemic heart disease should be scheduled for Lexiscan perfusion study. * 10. Ascending aortic aneurysm measured 4.6 cm from echocardiogram September 2021, follow-up study inthis coming September was scheduled. Controlling hypertension and keeping past medication was advised. * Yuriy Conway MD, [facility] Health Concerns Infection Onset Date Last Indicated Resolved Time C. difficile 12/25/2022 12/25/2022 Additional Source Comments INFORMATION SOURCE (unrecogn ized section and content) DATE CREATED AUTHOR 10/21/2018 [facility] DATE CREATED AUTHOR AUTHOR'S ORGANIZ ATION 12/22/2020 [facility] DATE CREATED AUTHOR AUTHOR'S ORGANIZ ATION 04/30/2021 [facility] DATE CREATED AUTHOR AUTHOR'S ORGANIZ ATION 09/10/2021 [facility] DATE CREATED AUTHOR AUTHOR'S ORGANIZ ATION 10/27/2021 [facility] DATE CREATED AUTHOR AUTHOR'S ORGANIZ ATION 08/08/2022 [facility] DATE CREATED AUTHOR AUTHOR'S ORGANIZ ATION 08/08/2022 [facility] DATE CREATED AUTHOR AUTHOR'S ORGANIZ ATION 09/20/2022 [facility] DATE CREATED AUTHOR AUTHOR'S ORGANIZ ATION 09/23/2022 [facility] DATE CREATED AUTHOR AUTHOR'S ORGANIZ ATION 12/18/2022 [facility] DATE CREATED AUTHOR AUTHOR'S ORGANIZ ATION 08/08/2023 [facility] DATE CREATED AUTHOR AUTHOR'S ORGANIZ ATION 08/28/2023 [facility] DATE CREATED AUTHOR AUTHOR'S ORGANIZ ATION 09/03/2023 [facility] Source Comments (unrecognize d section and content) In the event this informatio n is protected by the Federal Confidentiality of Alcohol and Drug Abuse Patient Records regulations: The Federal rules restrict any use of the information to criminally investigate or prosecute any alcohol or drug abuse patient.[facility] the event this information is protected by the Federal Confidentiality of Alcohol and Drug Abuse Patient Records regulations: The Federal rules restrict any use of the information to criminally investigate or prosecute any alcohol or drug abuse patient.[facility] CenterIn the event this information is protected by the Federal Confidentiality of Alcohol and Drug Abuse Patient Records regulations: The Federal rules restrict any use of the information to criminally investigate or prosecute any alcohol or drug abuse patient.[facility] CenterIn the event this information is protected by the Federal Confidentiality of Alcohol and Drug Abuse Patient Records regulations: The Federal rules restrict any use of the information to criminally investigate or prosecute any alcohol or drug abuse patient.[facility] CenterIn the event this information is protected by the Federal Confidentiality of Alcohol and Drug Abuse Patient Records regulations: The Federal rules restrict any use of the information to criminally investigate or prosecute any alcohol or drug abuse patient.[facility] CenterIn the event this information is protected by the Federal Confidentiality of Alcohol and Drug Abuse Patient Records regulations: The Federal rules restrict any use of the information to criminally investigate or prosecute any alcohol or drug abuse patient.[facility] CenterIn the event this information is protected by the Federal Confidentiality of Alcohol and Drug Abuse Patient Records regulations: The Federal rules restrict any use of the information to criminally investigate or prosecute any alcohol or drug abuse patient.[facility] CenterIn the event this information is protected by the Federal Confidentiality of Alcohol and Drug Abuse Patient Records regulations: The Federal rules restrict any use of the information to criminally investigate or prosecute any alcohol or drug abuse patient.[facility] CenterIn the event this information is protected by the Federal Confidentiality of Alcohol and Drug Abuse Patient Records regulations: The Federal rules restrict any use of the information to criminally investigate or prosecute any alcohol or drug abuse patient.[facility] CenterIn the event this information is protected by the Federal Confidentiality of Alcohol and Drug Abuse Patient Records regulations: The Federal rules restrict any use of the information to criminally investigate or prosecute any alcohol or drug abuse patient.[facility] CenterIn the event this information is protected by the Federal Confidentiality of Alcohol and Drug Abuse Patient Records regulations: The Federal rules restrict any use of the information to criminally investigate or prosecute any alcohol or drug abuse patient.[facility] CenterIn the event this information is protected by the Federal Confidentiality of Alcohol and Drug Abuse Patient Records regulations: The Federal rules restrict any use of the information to criminally investigate or prosecute any alcohol or drug abuse patient.[facility] CenterIn the event this information is protected by the Federal Confidentiality of Alcohol and Drug Abuse Patient Records regulations: The Federal rules restrict any use of the information to criminally investigate or prosecute any alcohol or drug abuse patient.[facility] CenterIn the event this information is protected by the Federal Confidentiality of Alcohol and Drug Abuse Patient Records regulations: The Federal rules restrict any use of the information to criminally investigate or prosecute any alcohol or drug abuse patient.[facility] CenterIn the event this information is protected by the Federal Confidentiality of Alcohol and Drug Abuse Patient Records regulations: The Federal rules restrict any use of the information to criminally investigate or prosecute any alcohol or drug abuse patient.[facility] CenterIn the event this information is protected by the Federal Confidentiality of Alcohol and Drug Abuse Patient Records regulations: The Federal rules restrict any use of the information to criminally investigate or prosecute any alcohol or drug abuse patient.[facility] CenterIn the event this information is protected by the Federal Confidentiality of Alcohol and Drug Abuse Patient Records regulations: The Federal rules restrict any use of the information to criminally investigate or prosecute any alcohol or drug abuse patient.[facility] CenterIn the event this information is protected by the Federal Confidentiality of Alcohol and Drug Abuse Patient Records regulations: The Federal rules restrict any use of the information to criminally investigate or prosecute any alcohol or drug abuse patient.[facility] CenterIn the event this information is protected by the Federal Confidentiality of Alcohol and Drug Abuse Patient Records regulations: The Federal rules restrict any use of the information to criminally investigate or prosecute any alcohol or drug abuse patient.[facility] CenterIn the event this information is protected by the Federal Confidentiality of Alcohol and Drug Abuse Patient Records regulations: The Federal rules restrict any use of the information to criminally investigate or prosecute any alcohol or drug abuse patient.[facility] CenterIn the event this information is protected by the Federal Confidentiality of Alcohol and Drug Abuse Patient Records regulations: The Federal rules restrict any use of the information to criminally investigate or prosecute any alcohol or drug abuse patient.[facility] CenterIn the event this information is protected by the Federal Confidentiality of Alcohol and Drug Abuse Patient Records regulations: The Federal rules restrict any use of the information to criminally investigate or prosecute any alcohol or drug abuse patient.[facility] CenterIn the event this information is protected by the Federal Confidentiality of Alcohol and Drug Abuse Patient Records regulations: The Federal rules restrict any use of the information to criminally investigate or prosecute any alcohol or drug abuse patient.[facility] CenterIn the event this information is protected by the Federal Confidentiality of Alcohol and Drug Abuse Patient Records regulations: The Federal rules restrict any use of the information to criminally investigate or prosecute any alcohol or drug abuse patient.[facility] CenterIn the event this information is protected by the Federal Confidentiality of Alcohol and Drug Abuse Patient Records regulations: The Federal rules restrict any use of the information to criminally investigate or prosecute any alcohol or drug abuse patient.[facility] CenterIn the event this information is protected by the Federal Confidentiality of Alcohol and Drug Abuse Patient Records regulations: The Federal rules restrict any use of the information to criminally investigate or prosecute any alcohol or drug abuse patient.[facility] CenterIn the event this information is protected by the Federal Confidentiality of Alcohol and Drug Abuse Patient Records regulations: The Federal rules restrict any use of the information to criminally investigate or prosecute any alcohol or drug abuse patient.[facility] CenterIn the event this information is protected by the Federal Confidentiality of Alcohol and Drug Abuse Patient Records regulations: The Federal rules restrict any use of the information to criminally investigate or prosecute any alcohol or drug abuse patient.[facility] CenterIn the event this information is protected by the Federal Confidentiality of Alcohol and Drug Abuse Patient Records regulations: The Federal rules restrict any use of the information to criminally investigate or prosecute any alcohol or drug abuse patient.[facility] CenterIn the event this information is protected by the Federal Confidentiality of Alcohol and Drug Abuse Patient Records regulations: The Federal rules restrict any use of the information to criminally investigate or prosecute any alcohol or drug abuse patient.[facility] CenterIn the event this information is protected by the Federal Confidentiality of Alcohol and Drug Abuse Patient Records regulations: The Federal rules restrict any use of the information to criminally investigate or prosecute any alcohol or drug abuse patient.[facility] CenterIn the event this information is protected by the Federal Confidentiality of Alcohol and Drug Abuse Patient Records regulations: The Federal rules restrict any use of the information to criminally investigate or prosecute any alcohol or drug abuse patient.[facility] CenterIn the event this information is protected by the Federal Confidentiality of Alcohol and Drug Abuse Patient Records regulations: The Federal rules restrict any use of the information to criminally investigate or prosecute any alcohol or drug abuse patient.[facility] CenterIn the event this information is protected by the Federal Confidentiality of Alcohol and Drug Abuse Patient Records regulations: The Federal rules restrict any use of the information to criminally investigate or prosecute any alcohol or drug abuse patient.[facility] CenterIn the event this information is protected by the Federal Confidentiality of Alcohol and Drug Abuse Patient Records regulations: The Federal rules restrict any use of the information to criminally investigate or prosecute any alcohol or drug abuse patient.[facility] CenterIn the event this information is protected by the Federal Confidentiality of Alcohol and Drug Abuse Patient Records regulations: The Federal rules restrict any use of the information to criminally investigate or prosecute any alcohol or drug abuse patient.[facility] CenterIn the event this information is protected by the Federal Confidentiality of Alcohol and Drug Abuse Patient Records regulations: The Federal rules restrict any use of the information to criminally investigate or prosecute any alcohol or drug abuse patient.[facility] CenterIn the event this information is protected by the Federal Confidentiality of Alcohol and Drug Abuse Patient Records regulations: The Federal rules restrict any use of the information to criminally investigate or prosecute any alcohol or drug abuse patient.[facility] CenterIn the event this information is protected by the Federal Confidentiality of Alcohol and Drug Abuse Patient Records regulations: The Federal rules restrict any use of the information to criminally investigate or prosecute any alcohol or drug abuse patient.[facility] CenterIn the event this information is protected by the Federal Confidentiality of Alcohol and Drug Abuse Patient Records regulations: The Federal rules restrict any use of the information to criminally investigate or prosecute any alcohol or drug abuse patient.[facility]In the event this information is protected by the Federal Confidentiality of Alcohol and Drug Abuse Patient Records regulations: The Federal rules restrict any use of the information to criminally investigate or prosecute any alcohol or drug abuse patient.[facility] CenterIn the event this information is protected by the Federal Confidentiality of Alcohol and Drug Abuse Patient Records regulations: The Federal rules restrict any use of the information to criminally investigate or prosecute any alcohol or drug abuse patient.[facility] CenterIn the event this information is protected by the Federal Confidentiality of Alcohol and Drug Abuse Patient Records regulations: The Federal rules restrict any use of the information to criminally investigate or prosecute any alcohol or drug abuse patient.[facility] CenterIn the event this information is protected by the Federal Confidentiality of Alcohol and Drug Abuse Patient Records regulations: The Federal rules restrict any use of the information to criminally investigate or prosecute any alcohol or drug abuse patient.[facility] CenterIn the event this information is protected by the Federal Confidentiality of Alcohol and Drug Abuse Patient Records regulations: The Federal rules restrict any use of the information to criminally investigate or prosecute any alcohol or drug abuse patient.[facility] CenterIn the event this information is protected by the Federal Confidentiality of Alcohol and Drug Abuse Patient Records regulations: The Federal rules restrict any use of the information to criminally investigate or prosecute any alcohol or drug abuse patient.[facility] CenterIn the event this information is protected by the Federal Confidentiality of Alcohol and Drug Abuse Patient Records regulations: The Federal rules restrict any use of the information to criminally investigate or prosecute any alcohol or drug abuse patient.[facility] CenterIn the event this information is protected by the Federal Confidentiality of Alcohol and Drug Abuse Patient Records regulations: The Federal rules restrict any use of the information to criminally investigate or prosecute any alcohol or drug abuse patient.[facility] CenterIn the event this information is protected by the Federal Confidentiality of Alcohol and Drug Abuse Patient Records regulations: The Federal rules restrict any use of the information to criminally investigate or prosecute any alcohol or drug abuse patient.[facility] CenterIn the event this information is protected by the Federal Confidentiality of Alcohol and Drug Abuse Patient Records regulations: The Federal rules restrict any use of the information to criminally investigate or prosecute any alcohol or drug abuse patient.[facility] CenterIn the event this information is protected by the Federal Confidentiality of Alcohol and Drug Abuse Patient Records regulations: The Federal rules restrict any use of the information to criminally investigate or prosecute any alcohol or drug abuse patient.[facility] CenterIn the event this information is protected by the Federal Confidentiality of Alcohol and Drug Abuse Patient Records regulations: The Federal rules restrict any use of the information to criminally investigate or prosecute any alcohol or drug abuse patient.[facility] CenterIn the event this information is protected by the Federal Confidentiality of Alcohol and Drug Abuse Patient Records regulations: The Federal rules restrict any use of the information to criminally investigate or prosecute any alcohol or drug abuse patient.[facility] CenterIn the event this information is protected by the Federal Confidentiality of Alcohol and Drug Abuse Patient Records regulations: The Federal rules restrict any use of the information to criminally investigate or prosecute any alcohol or drug abuse patient.[facility] CenterIn the event this information is protected by the Federal Confidentiality of Alcohol and Drug Abuse Patient Records regulations: The Federal rules restrict any use of the information to criminally investigate or prosecute any alcohol or drug abuse patient.[facility] CenterIn the event this information is protected by the Federal Confidentiality of Alcohol and Drug Abuse Patient Records regulations: The Federal rules restrict any use of the information to criminally investigate or prosecute any alcohol or drug abuse patient.[facility] CenterIn the event this information is protected by the Federal Confidentiality of Alcohol and Drug Abuse Patient Records regulations: The Federal rules restrict any use of the information to criminally investigate or prosecute any alcohol or drug abuse patient.[facility] CenterIn the event this information is protected by the Federal Confidentiality of Alcohol and Drug Abuse Patient Records regulations: The Federal rules restrict any use of the information to criminally investigate or prosecute any alcohol or drug abuse patient.[facility] CenterIn the event this information is protected by the Federal Confidentiality of Alcohol and Drug Abuse Patient Records regulations: The Federal rules restrict any use of the information to criminally investigate or prosecute any alcohol or drug abuse patient.[facility] CenterIn the event this information is protected by the Federal Confidentiality of Alcohol and Drug Abuse Patient Records regulations: The Federal rules restrict any use of the information to criminally investigate or prosecute any alcohol or drug abuse patient.[facility] CenterIn the event this information is protected by the Federal Confidentiality of Alcohol and Drug Abuse Patient Records regulations: The Federal rules restrict any use of the information to criminally investigate or prosecute any alcohol or drug abuse patient.[facility] CenterIn the event this information is protected by the Federal Confidentiality of Alcohol and Drug Abuse Patient Records regulations: The Federal rules restrict any use of the information to criminally investigate or prosecute any alcohol or drug abuse patient.[facility] CenterIn the event this information is protected by the Federal Confidentiality of Alcohol and Drug Abuse Patient Records regulations: The Federal rules restrict any use of the information to criminally investigate or prosecute any alcohol or drug abuse patient.[facility] CenterIn the event this information is protected by the Federal Confidentiality of Alcohol and Drug Abuse Patient Records regulations: The Federal rules restrict any use of the information to criminally investigate or prosecute any alcohol or drug abuse patient.[facility] CenterIn the event this information is protected by the Federal Confidentiality of Alcohol and Drug Abuse Patient Records regulations: The Federal rules restrict any use of the information to criminally investigate or prosecute any alcohol or drug abuse patient.[facility] CenterIn the event this information is protected by the Federal Confidentiality of Alcohol and Drug Abuse Patient Records regulations: The Federal rules restrict any use of the information to criminally investigate or prosecute any alcohol or drug abuse patient.[facility] CenterIn the event this information is protected by the Federal Confidentiality of Alcohol and Drug Abuse Patient Records regulations: The Federal rules restrict any use of the information to criminally investigate or prosecute any alcohol or drug abuse patient.[facility] CenterIn the event this information is protected by the Federal Confidentiality of Alcohol and Drug Abuse Patient Records regulations: The Federal rules restrict any use of the information to criminally investigate or prosecute any alcohol or drug abuse patient.[facility] CenterIn the event this information is protected by the Federal Confidentiality of Alcohol and Drug Abuse Patient Records regulations: The Federal rules restrict any use of the information to criminally investigate or prosecute any alcohol or drug abuse patient.[facility] CenterIn the event this information is protected by the Federal Confidentiality of Alcohol and Drug Abuse Patient Records regulations: The Federal rules restrict any use of the information to criminally investigate or prosecute any alcohol or drug abuse patient.[facility] CenterIn the event this information is protected by the Federal Confidentiality of Alcohol and Drug Abuse Patient Records regulations: The Federal rules restrict any use of the information to criminally investigate or prosecute any alcohol or drug abuse patient.[facility] CenterIn the event this information is protected by the Federal Confidentiality of Alcohol and Drug Abuse Patient Records regulations: The Federal rules restrict any use of the information to criminally investigate or prosecute any alcohol or drug abuse patient.[facility] CenterIn the event this information is protected by the Federal Confidentiality of Alcohol and Drug Abuse Patient Records regulations: The Federal rules restrict any use of the information to criminally investigate or prosecute any alcohol or drug abuse patient.[facility] CenterIn the event this information is protected by the Federal Confidentiality of Alcohol and Drug Abuse Patient Records regulations: The Federal rules restrict any use of the information to criminally investigate or prosecute any alcohol or drug abuse patient.[facility] CenterIn the event this information is protected by the Federal Confidentiality of Alcohol and Drug Abuse Patient Records regulations: The Federal rules restrict any use of the information to criminally investigate or prosecute any alcohol or drug abuse patient.[facility] CenterIn the event this information is protected by the Federal Confidentiality of Alcohol and Drug Abuse Patient Records regulations: The Federal rules restrict any use of the information to criminally investigate or prosecute any alcohol or drug abuse patient.[facility] CenterIn the event this information is protected by the Federal Confidentiality of Alcohol and Drug Abuse Patient Records regulations: The Federal rules restrict any use of the information to criminally investigate or prosecute any alcohol or drug abuse patient.[facility] CenterIn the event this information is protected by the Federal Confidentiality of Alcohol and Drug Abuse Patient Records regulations: The Federal rules restrict any use of the information to criminally investigate or prosecute any alcohol or drug abuse patient.[facility] CenterIn the event this information is protected by the Federal Confidentiality of Alcohol and Drug Abuse Patient Records regulations: The Federal rules restrict any use of the information to criminally investigate or prosecute any alcohol or drug abuse patient.[facility] CenterIn the event this information is protected by the Federal Confidentiality of Alcohol and Drug Abuse Patient Records regulations: The Federal rules restrict any use of the information to criminally investigate or prosecute any alcohol or drug abuse patient.[facility] CenterIn the event this information is protected by the Federal Confidentiality of Alcohol and Drug Abuse Patient Records regulations: The Federal rules restrict any use of the information to criminally investigate or prosecute any alcohol or drug abuse patient.[facility] CenterIn the event this information is protected by the Federal Confidentiality of Alcohol and Drug Abuse Patient Records regulations: The Federal rules restrict any use of the information to criminally investigate or prosecute any alcohol or drug abuse patient.[facility] CenterIn the event this information is protected by the Federal Confidentiality of Alcohol and Drug Abuse Patient Records regulations: The Federal rules restrict any use of the information to criminally investigate or prosecute any alcohol or drug abuse patient.[facility] CenterIn the event this information is protected by the Federal Confidentiality of Alcohol and Drug Abuse Patient Records regulations: The Federal rules restrict any use of the information to criminally investigate or prosecute any alcohol or drug abuse patient.[facility] CenterIn the event this information is protected by the Federal Confidentiality of Alcohol and Drug Abuse Patient Records regulations: The Federal rules restrict any use of the information to criminally investigate or prosecute any alcohol or drug abuse patient.[facility] CenterIn the event this information is protected by the Federal Confidentiality of Alcohol and Drug Abuse Patient Records regulations: The Federal rules restrict any use of the information to criminally investigate or prosecute any alcohol or drug abuse patient.[facility] CenterIn the event this information is protected by the Federal Confidentiality of Alcohol and Drug Abuse Patient Records regulations: The Federal rules restrict any use of the information to criminally investigate or prosecute any alcohol or drug abuse patient.[facility] CenterIn the event this information is protected by the Federal Confidentiality of Alcohol and Drug Abuse Patient Records regulations: The Federal rules restrict any use of the information to criminally investigate or prosecute any alcohol or drug abuse patient.[facility] CenterIn the event this information is protected by the Federal Confidentiality of Alcohol and Drug Abuse Patient Records regulations: The Federal rules restrict any use of the information to criminally investigate or prosecute any alcohol or drug abuse patient.[facility] CenterIn the event this information is protected by the Federal Confidentiality of Alcohol and Drug Abuse Patient Records regulations: The Federal rules restrict any use of the information to criminally investigate or prosecute any alcohol or drug abuse patient.[facility]In the event this information is protected by the Federal Confidentiality of Alcohol and Drug Abuse Patient Records regulations: The Federal rules restrict any use of the information to criminally investigate or prosecute any alcohol or drug abuse patient.[facility] CenterIn the event this information is protected by the Federal Confidentiality of Alcohol and Drug Abuse Patient Records regulations: The Federal rules restrict any use of the information to criminally investigate or prosecute any alcohol or drug abuse patient.[facility] CenterIn the event this information is protected by the Federal Confidentiality of Alcohol and Drug Abuse Patient Records regulations: The Federal rules restrict any use of the information to criminally investigate or prosecute any alcohol or drug abuse patient.[facility] CenterIn the event this information is protected by the Federal Confidentiality of Alcohol and Drug Abuse Patient Records regulations: The Federal rules restrict any use of the information to criminally investigate or prosecute any alcohol or drug abuse patient.[facility] CenterIn the event this information is protected by the Federal Confidentiality of Alcohol and Drug Abuse Patient Records regulations: The Federal rules restrict any use of the information to criminally investigate or prosecute any alcohol or drug abuse patient.[facility] CenterIn the event this information is protected by the Federal Confidentiality of Alcohol and Drug Abuse Patient Records regulations: The Federal rules restrict any use of the information to criminally investigate or prosecute any alcohol or drug abuse patient.[facility] CenterIn the event this information is protected by the Federal Confidentiality of Alcohol and Drug Abuse Patient Records regulations: The Federal rules restrict any use of the information to criminally investigate or prosecute any alcohol or drug abuse patient.[facility] CenterIn the event this information is protected by the Federal Confidentiality of Alcohol and Drug Abuse Patient Records regulations: The Federal rules restrict any use of the information to criminally investigate or prosecute any alcohol or drug abuse patient.[facility] CenterIn the event this information is protected by the Federal Confidentiality of Alcohol and Drug Abuse Patient Records regulations: The Federal rules restrict any use of the information to criminally investigate or prosecute any alcohol or drug abuse patient.[facility] CenterIn the event this information is protected by the Federal Confidentiality of Alcohol and Drug Abuse Patient Records regulations: The Federal rules restrict any use of the information to criminally investigate or prosecute any alcohol or drug abuse patient.[facility] CenterIn the event this information is protected by the Federal Confidentiality of Alcohol and Drug Abuse Patient Records regulations: The Federal rules restrict any use of the information to criminally investigate or prosecute any alcohol or drug abuse patient.[facility] CenterIn the event this information is protected by the Federal Confidentiality of Alcohol and Drug Abuse Patient Records regulations: The Federal rules restrict any use of the information to criminally investigate or prosecute any alcohol or drug abuse patient.[facility] CenterIn the event this information is protected by the Federal Confidentiality of Alcohol and Drug Abuse Patient Records regulations: The Federal rules restrict any use of the information to criminally investigate or prosecute any alcohol or drug abuse patient.[facility] CenterIn the event this information is protected by the Federal Confidentiality of Alcohol and Drug Abuse Patient Records regulations: The Federal rules restrict any use of the information to criminally investigate or prosecute any alcohol or drug abuse patient.[facility] CenterIn the event this information is protected by the Federal Confidentiality of Alcohol and Drug Abuse Patient Records regulations: The Federal rules restrict any use of the information to criminally investigate or prosecute any alcohol or drug abuse patient.[facility] Care Teams (unrecognized sec tion and content) 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 Start Date End Date Wojciech Treviño [address] [place] [address] PCP - General 01/18/10 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 Start Date End Date Wojciech Treviño [address] [place] [address] PCP - General 01/18/10 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 Start Date End Date Wojciech Treviño [address] [place] [address] PCP - General 01/18/10 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 Start Date End Date Wojciech Treviño DO [address] [place] [address] PCP - General 01/18/10 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 Start Date End Date Wojciech Treviño DO [address] [place] [address] PCP - General 01/18/10 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 Start Date End Date Wojciech Treviño DO [address] [place] [address] PCP - General 01/18/10 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 Start Date End Date Wojciech Treviño DO [address] [place] [address] PCP - General 01/18/10 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 Start Date End Date Wojciech Treviño DO [address] [place] [address] PCP - General 01/18/10 Team Status: Active Member Role Status Dates Wojciech Furlong , DO Primary Care Provider Active Chapincito Lee , DO Family Provider Active Chapincito Barraza MD Emergency Provider Active Hussain Cat MD Admit Provider, Attending Chad zuniga Active Team Status: Active Member Role Status Dates Chapincito Komalteresa , DO Family Provider Active Wojciech Treviño , DO Primary Care Provider Active Team Status: Inactive Member Role Status Dates Wojciech Klinecynthiamolly , DO Primary Care Provider Active Chapincito Lee , DO Family Provider Active Chapincito Barraza MD Emergency Provider Active Hussain Cat MD Admit Provider, Attending Chad zuniga Active Rachelle Frazier , Other Provider Active Team Status: Inactive Member Role Status Dates Wojciech Treviño , DO Primary Care Provider Active Chapincito Lee , DO Family Provider Active Petey Junior , Emergency Provider Active 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 Start Date End Date Wojciech Treviño, DO [address] [place] [address] PCP - General 01/18/10 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 Start Date End Date Wojciech Treviño, DO [address] [place] [address] PCP - General 01/18/10 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 Start Date End Date Wojciech Treviño, DO [address] [place] [address] PCP - General 01/18/10 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 Start Date End Date Wojciech Treviño, DO [address] [place] [address] PCP - General 01/18/10 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 Start Date End Date Wojciech Treviño, DO [address] [place] [address] PCP - General 01/18/10 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 Start Date End Date Wojciech Treviño, DO [address] [place] [address] PCP - General 01/18/10 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 Start Date End Date Wojciech Treviño, DO [address] [place] [address] PCP - General 01/18/10 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 Start Date End Date Wojciech Treviño, DO [address] [place] [address] PCP - General 01/18/10 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 Start Date End Date Wojciech Treviño, DO [address] [place] [address] PCP - General 01/18/10 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 Start Date End Date Wojciech Treviño, DO [address] [place] [address] PCP - General 01/18/10 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 Start Date End Date Wojciech Treviño, DO [address] [place] [address] PCP - General 01/18/10 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 Start Date End Date Wojciech Treviño, DO [address] [place] [address] PCP - General 01/18/10 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 Start Date End Date Wojciech Treviño, DO [address] [place] [address] PCP - General 01/18/10 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 Start Date End Date Wojciech Treviño, DO [address] [place] [address] PCP - General 01/18/10 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 Start Date End Date Wojciech Treviño, DO [address] [place] [address] PCP - General 01/18/10 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 Start Date End Date Wojciech Treviño, DO [address] [place] [address] PCP - General 01/18/10 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 Start Date End Date Wojciech Treviño, DO [address] [place] [address] PCP - General 01/18/10 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 Start Date End Date Wojciech Treviño, DO [address] [place] [address] PCP - General 01/18/10 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 Start Date End Date Wojciech Treviño, DO [address] [place] [address] PCP - General 01/18/10 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 Start Date End Date Wojciech Treviño, DO [address] [place] [address] PCP - General 01/18/10 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 Start Date End Date Wojciech Treviño DO [address] [place] [address] PCP - General 01/18/10 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 Start Date End Date Wojciech Treviño DO [address] [place] [address] PCP - General 01/18/10 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 Start Date End Date Wojciech Treviño DO [address] [place] [address] PCP - General 01/18/10 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 Start Date End Date Wojciech Treviño DO [address] [place] [address] PCP - General 01/18/10 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 Start Date End Date Wojciech Treviño DO [address] [place] [address] PCP - General 01/18/10 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 Start Date End Date Wojciech Treviño DO [address] [place] [address] PCP - General 01/18/10 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 Start Date End Date Wojciech Treviño DO [address] [place] [address] PCP - General 01/18/10 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 Start Date End Date Wojciech Treviño DO [address] [place] [address] PCP - General 01/18/10 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 Start Date End Date Wojciech Treviño DO [address] [place] [address] PCP - General 01/18/10 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 Start Date End Date Wojciech Treviño DO [address] [place] [address] PCP - General 01/18/10 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 Start Date End Date Wojciech Treviño DO [address] [place] [address] PCP - General 01/18/10 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 Start Date End Date Wojciech Treviño DO [address] [place] [address] PCP - General 01/18/10 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 Start Date End Date Wojciech Treviño DO [address] [place] [address] PCP - General 01/18/10 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 Start Date End Date Wojciech Treviño DO [address] [place] [address] PCP - General 01/18/10 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 Start Date End Date Wojciech Treviño DO [address] [place] [address] PCP - General 01/18/10 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 Start Date End Date Wojciech Treviño DO [address] [place] [address] PCP - General 01/18/10 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 Start Date End Date Wojciech Treviño DO [address] [place] [address] PCP - General 01/18/10 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 Start Date End Date Wojciech Treviño DO [address] [place] [address] PCP - General 01/18/10 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 Start Date End Date Wojciech Treviño DO [address] [place] [address] PCP - General 01/18/10 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 Start Date End Date Wojciech Treviño DO [address] [place] [address] PCP - General 01/18/10 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 Start Date End Date Jania Saeed, RELATIONS LIAISON-WAREHOUSE MANAGER [address] [place] [address] PCP - General Internal Medicine 8/30/23 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 Start Date End Date Jania Saeed, RELATIONS LIAISON-WAREHOUSE MANAGER [address] [place] [address] PCP - General Internal Medicine 04/15/23 Reason for Visit (unrecogniz ed section and content) Reason Comments SLE Specialty Diagnoses / Procedures Referred By Contac t Referred To Contact RHEUMATOLOGY INFUSION Diagnoses Systemic lupus erythematosus, unspecified M32.9 (ICD-10-CM) - Systemic lupus erythematosus, unspecified Procedures BELIMUMAB INJECTION THER/PROPH/DIAG IV INF, INIT THER/PROPH/DIAG IV INF ADDON IV BENLYSTA [id number] Evelin Abel MD [id number] [facility] [address] [place] [address] Referral ID Status Reason Start Date Expiration Date V isits Requested Visits Authorized [id number] Authorized 04/02/2020 08/16/2022 99 99 Reason Onset Date Comments Refill Request 01/24/2022 Reason Comments Results Reason Comments Refill Request Reason Comments Results Orders Reason Comments Orders Evusheld Reason Comments Radiology BMD Reason Comments Osteopenia Reason Onset Date Comments Refill Request 05/06/2022 Reason Comments Osteopenia Reason Onset Date Comments Refill Request 05/14/2022 Reason Comments Surgical Followup Reason Comments New Patient Elevated calcium Specialty Diagnoses / Procedures Referred By Contac t Referred To Contact Endocrinology Diagnoses Hypercalcemia Hyperparathyroid (HCC) Procedures CONSULT TO [facility]OCRINOLOGY OFFICE[facility] 60-74 [facility]UTES Julia Peña PA-C [address] [place] [address] Referral ID Status Reason Start Date Expiration Date V isits Requested Visits Authorized [id number] Closed PCP Requested Referral 05/12/2022 05/12/2023 1 1 Reason Comments Consult Face Sheet Reason Comments Radiology NM Specialty Diagnoses / Procedures Referred By Contac t Referred To Contact MOLECULAR & FUNCTIONAL IMAGING Diagnoses Hyperparathyroidism (HCC) Procedures NM PARATHYROID W SPECT/CT PARATHYROID IMAGING W/TOMOGRAPHIC SPECT & CT Bryan Painting MD [address] [place] [address] Molecular & Functional Imaging [address] [place] [address] Referral ID Status Reason Start Date Expiration Date V isits Requested Visits Authorized [id number] Closed Auto-Generate d Referral 07/01/2022 07/31/2023 1 1 Reason Comments Radiology NM Specialty Diagnoses / Procedures Referred By Contac t Referred To Contact MOLECULAR & FUNCTIONAL IMAGING Diagnoses Hyperparathyroidism (HCC) Procedures NM PARATHYROID W SPECT/CT PARATHYROID IMAGING W/TOMOGRAPHIC SPECT & CT Bryan Painting MD [address] [place] [address] Molecular & Functional Imaging [address] [place] [address] Reason Comments Thyroid Problem Specialty Diagnoses / Procedures Referred By Contac t Referred To Contact Diagnoses Hypercalcemia Hyperparathyroid (HCC) Procedures CONSULT TO ENDOCRINE SURGERY OFFICE/[facility] 60-74 MINUTES Lemuel Bejarano V, MD [address] [id number] Referral ID Status Reason Start Date Expiration Date V isits Requested Visits Authorized [id number] Closed PCP Requested Referral 06/11/2022 06/11/2023 1 1 Reason Comments Anesthesia Consult Hyperparathyroidism Reason Comments Orders Reason Comments Clinical Project Assistant - Other Reason Comments Patient Update Reason Comments Preparations For Surgery Reason Comments Results Covid Reason Comments Patient Question I spoke to [facility] [place] she will be coming for her infusion on Thursday09-15-22. She states that she had parathyroid surgery since her last infusion. She has had a follow up apt with her PCP, and her incision is healed. She was not on any antibiotics for this procedure. She denies having been sick or on any recent antibiotics. Reason Comments Infusion Specialty Diagnoses / Procedures Referred By Contac t Referred To Contact RHEUMATOLOGY INFUSION Diagnoses Systemic lupus erythematosus, unspecified M32.9 (ICD-10-CM) - Systemic lupus erythematosus, unspecified Procedures BELIMUMAB INJECTION THER/PROPH/DIAG IV INF, INIT THER/PROPH/DIAG IV INF ADDON IV BENLYSTA [id number] Evelin Abel MD [address] [place] [address] [facility] Main A50 [address] [id number] Reason Onset Date Comments Refill Request 09/21/2022 Lialda Reason Onset Date Comments Refill Request 10/28/2022 Reason Onset Date Comments Refill Request 11/24/2022 iron Reason Onset Date Comments Refill Request 01/13/2023 colestipol Reason Comments Callous Preulcerative callus es right 1 plantar and 2+3 Reason Onset Date Comments Refill Request Follow Up 02/09/2023 Reason Comments Ulcer Right second ulcer Reason Comments Results labs Reason Comments Appointment Reason Comments Ulcer Right 1st Reason Comments Results Colon Reason Comments Ulcerative Colitis Reason Comments Medication Question Reason Comments Foot Pain (Midfoot) left Reason Comments Cough Cold,congestion over a week Reason Comments Med Refill FOR RECORDS PERTAINING TO PATIENTS WHO ARE OR HAVE BEEN ENROLLED IN A CHEMICAL DEPENDENCY/SUBSTANCEABUSE PROGRAM, SOME INFORMATION MAY BE OMITTED. This clinical summary was aggregated from multiple sources. Caution should be exercised in using it in the provision of clinical care. This summary normalizes information from multiple sources, and as a consequence, information in this document may materially change the coding, format and clinical context of patient data. In addition, data may be omitted in some cases. CLINICAL DECISIONS SHOULD BE BASED ON THE PRIMARY CLINICAL RECORDS. [facility]. provides no warranty or guarantee of the accuracy or completeness of information in this document.
== END 2023-08-05 14:12 ==
LOC: LAB 14:11
PROVIDERS: PCP Family Medicine; Visit Provider Obstetrics & Gynecology
DX: N95.0 Postmenopausal bleeding (principal)
CPT/HCPCS: 88305

== ENCOUNTER 2023-11-10 12:16 | Emergency (ER) | payer MEDICARE, OTHER, SELFPAY ==
[2023-11-10] VITALS (12 sets, daily range): BP systolic 96–116; BP diastolic 66–87; PULSE 67–141; RESP 9–24; O2SAT 95–98; BMI 40.7
--- NOTE | 2023-11-10 12:34 | ECG_ITS ---
[facility] Test Date: 2023-11-10 Pat Name: JESUS WOLF Department: Room: - Gender: Female Account Relationship Manager: : [id number] Requested By: RIO TREVIÑO Order Number: [id number] Reading MD: RHYS STILES Measurements Intervals [place] Rate: 127 P: -59957 [place]: -[address]994 QRS: 110 QRSD: 134 T: 27 QT: 374 QTc: 449 Interpretive Statements 37452 Atrial fibrillation with rapid ventricular response 2450 Right bundle branch block 7300 Indeterminate axis 9150 abnormal ECG Electronically Signed On 11-10-2023 23:37:45 EDT by RHYS STILES
--- OUTSIDE RECORDS SUMMARY | 2023-11-10 12:44 | XMS_ITS | CCD ---
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 Name Role Phone YURIY CONWAY Attending Unavailable FURLONGWOJCIECH Primary Care Unavailable YURIY CONWAY Attending Unavailable FURLONG, WOJCIECH Primary Care Unavailable Furlong, Wojciech Francisco Javier Primary Care Provider [phone] Furlong DOWojciech Francisco Javier Primary Care Provider Ki, DO Wojciech Primary Care Provider [phone] MD Chapincito Barraza Emergency Provider [phone] MD Hussain Cat Admit Provider MD Hussain Cat Attending Provider [phone] DO Rachelle Frazier Other Provider DO Petey Junior Emergency Provider [phone] Furlong DOWojciech Francisco Javier Primary Care Provider Furceceliang DOWojciech Primary Care Provider Furlong DO Wojciech Francisco Javier Primary Care Provider Wojciech Treviño G Unavailable Unavailable Unavailable Eliudlong, Wojciech Francisco Javier Primary Care Unavailab le Conway, Dr. Yuriy Tapia Referring [place] vailable Conway, Dr. Yuriy Tapia Attending [place] vailable [id number], Dr. Yan Attending Unavailable [id number], Dr. Yan Referring Unavailable Furlong, Wojciech Cisneros Primary Care Unavailab le [id number], Dr. Yan Attending Unavailable [id number], Dr. Yan Referring Unavailable Furlong, Wojciech Francisco Javier Primary Care Unavailab le [id number], Dr. Yan Attending Unavailable [id number], Dr. Yan Referring Unavailable Furlong, Wojciech Francisco Javier Primary Care Unavailab le REINECK, DR MIRTHA Mcghee Admitting Unavailabl e REINECK, DR MIRTHA Mcghee Attending Unavailabl e FURLONG, DR WOJCIECH Mcghee Primary Care Unavailable HAY ., DR ROTH Consulting Unavailable YAROSH .BEVERLY Consulting Unavailable MISC, DR RIVERS Consulting Unavailable MISC, DR RIVERS Attending Unavailable FURLONG, DR WOJCIECH Mcghee Primary Care Unavailable MISC, DR RIVERS Admitting Unavailable FURLONG, DR WOJCIECH Mcghee Primary Care Unavailable DEEPA ., MIKE Admitting Unavailable DEEPA ., MIKE Consulting Unavailable DEEPA ., MIKE Attending Unavailable JENA WEN Consulting Unavailable SENAIT KELSEY Consulting Unavailable Luís SULKY DRIVER-CONSUELO, Jania Miller Primary Care Provider AUGUST YOUNG Attending Unavailable AUGUST YOUNG Attending Unavailable JANIA SAEED Attending Unavailable JANIA SAEED Referring Unavailable JANIA SAEED Primary Care Unavailable Furlong DO Wojciech Francisco Javier Primary Care Provider DO Wojciech Treviño Primary Care Provider MD Yuriy Conway Attending Provider MD Yuriy Conway Referring Provider [phone] Yuriy Conway Referring Unavailable Yuriy Conway Attending Unavailable Yuriy Conway Admitting Unavailable Furlong, Wojciech Primary Care Unavailable RIMA MCALLISTER Referring Unavailable FURLONG, WOJCIECH FRANCISCO JAVIER Primary Care Unavailab le FURLONG, WOJCIECH FRANCISCO JAVIER Primary Care Unavailab le RIMA MCALLISTER Referring Unavailable FURLONG, WOJCIECH FRANCISCO JAVIER Primary Care Unavailab RIMA Brambila Referring Unavailable Yuriy Conway MD Unavailable FURLONG, WOJCIECH FRANCISCO JAVIER Primary Care Unavailab DALILA Samaniego Referring Unavailab DALILA Samaniego Attending Unavailab DALILA Samaniego Admitting Unavailab le FURLONG, WOJCIECH FRANCISCO JAVIER Primary Care Unavailab JULIA Gonsalez Referring Unavailable FURLONG, WOJCIECH FRANCISCO JAVIER Primary Care Unavailab le FURLONG, WOJCIECH FRANCISCO JAVIER Primary Care Unavailab le FURLONG, WOJCIECH FRANCISCO JAVIER Primary Care Unavailab BEVERLY Delgadillo Attending Unavailable FURLONG, WOJCIECH FRANCISCO JAVIER Primary Care Unavailab DIONE Rodriguez Referring Unavailable FURLONG, WOJCIECH FRANCISCO JAVIER Primary [...] FRANCISCO JAVIER Primary Care Unavailab le ROSETTAJULIA ARCHIBALD Attending Unavailable FURLONG, WOJCIECH FRANCISCO JAVIER Primary Care Unavailab le FURLONG, WOJCIECH FRANCISCO JAVIER Primary Care Unavailab le ROSETTAJULIA Referring Unavailable FURLONG, WOJCIECH FRANCISCO JAVIER Primary Care Unavailab DIONE Rodriguez Attending Unavailable FURLONG, WOJCIECH FRANCISCO JAVIER Primary Care Unavailab le NADEGE HAWKINS Attending Unavailable BEVERLY FRANCO Attending Unavailable FURLONG, WOJCIECH FRANCISCO JAVIER Primary Care Unavailab le FURLONG, WOJCIECH FRANCISCO JAVIER Primary Care Unavailab le ROSETTAJULIA Referring Unavailable FURLONG, WOJCIECH FRANCISCO JAVIER Primary Care Unavailab DIONE Rodriguez Referring Unavailable YURIY, THIDA Attending Unavailable FURLONG, WOJCIECH FRANCISCO JAVIER Primary Care Unavailab le ROSETTAJULIA ARCHIBALD Referring Unavailable FURLONG, WOJCIECH FRANCISCO JAVIER Primary Care Unavailab BEVERLY Delgadillo Attending Unavailable FURLONG, WOJCIECH FRANCISCO JAVIER Primary Care Unavailab BRYAN Taveras Referring Unavailable FURLONG, WOJCIECH FRANCISCO JAVIER Primary Care Unavailab BEVERLY Delgadillo Attending Unavailable YURIY CONWAY Attending Unavailable FURLONG, WOJCIECH FRANCISCO JAVIER Primary Care Unavailab YURIY Drake Attending Unavailable YURIY CONWAY Referring Unavailable FURLONG, WOJCIECH FRANCISCO JAVIER Primary Care Unavailab YURIY Drake Referring Unavailable FURLONG, WOJCIECH FRANCISCO JAVIER Primary Care Unavailab le Allergies Allergy Classification Reported Allergen(s) Allergy Type Date of Onset Reaction(s) Facility (20 sources) Codeine; Translations: [codeine] Drug Allergy 02-22-20 10 Other: See Comments, Unknown [facility] (20 sources) Contrast media; Translations: [CONTRAST DYE] Drug Allergy 08-28-19 11 Other: See Comments, Unknown [facility] (20 sources) dofetilide; Translations: [Tikosyn] Drug Allergy 03-15-20 20 Other: See Comments, Anaphylaxis, GI Disturbance, Palpitations, Unknown [facility] (20 sources) Prochlorperazine; Translations: [PROCHLORPERAZINE EDISYLATE] Drug Allergy 02-22-20 10 Other: See Comments [facility] (20 sources) Sulfonamides (Antibiotic); Translations: [SULFA (SULFONAMIDE ANTIBIOTICS)] Drug Intolerance 02-22-20 10 Vomiting, Swelling, Nausea/vomitin g, Unknown [facility] (12 sources) Tetanus Vaccines And Toxoid; Translations: [TETANUS VACCINES AND TOXOID] Drug Intolerance 02-22-20 10 Other: See Comments [facility] (20 sources) EPINEPHrine; Translations: [epinephrine] Drug Allergy 03-07-20 10 Unknown [facility] (9 sources) Prochlorperazine; Translations: [prochlorperazine] Drug Allergy 02-08-20 22 [facility] (5 sources) tetanus and diphtheria toxoids; Translations: [tetanus and diphtheria toxoids] Allergy to substance 02-08-20 22 Redness of Skin [facility] (9 sources) Iodinated Contrast Media; Translations: [IODINATED CONTRAST MEDIA] Propensity to adverse reactions 08-28-19 11 [place] [facility] (20 sources) Tetanus Vaccines And Toxoid Drug Intolerance 02-22-20 10 Other: See Comments, [facility] (8 sources) Contrast media Allergy to substance (finding) -[facility] y [facility] DO Work Phone: (8 sources) diphtheria toxoid vaccine, inactivated / tetanus toxoid vaccine, inactivated; Translations: [Tetanus-Diphtheria Toxoids Td SUSP] Drug Allergy Other -[facility] y [address] DO Work Phone: (8 sources) Prochlorperazine; Translations: [Compazine] [facility]: (8 sources) Sulfamethoxazole; Translations: [sulfa] [facility] Work Phone: (8 sources) Sulfonamides (Antibiotic); Translations: [Sulfa Antibiotics] Allergy to drug (finding) Swelling, [facility] Work Phone: (8 sources) Tdap; Translations: [Tdap] Allergy to drug (finding) [facility] y 250 DO Work Phone: (1 source) Allopurinol Drug Allergy [facility] (1 source) Codeine Drug Allergy [facility] (1 source) dofetilide Drug Allergy [facility] (1 source) Iodine (And Iodine Containting Drugs) Drug allergy (disorder) [facility] (1 source) Prochlorperazine Drug Allergy [facility] (20 sources) Iodine; Translations: [IODINE] Drug Allergy 02-05-20 23 Unknown, Other: See Comments [facility] (6 sources) diphtheria toxoid vaccine, inactivated / tetanus toxoid vaccine, inactivated; Translations: [TETANUS AND DIPHTHER. TOX (PF)] Drug Allergy 04-23-20 22 Rash [facility] (9 sources) acellular pertussis vaccine, inactivated / diphtheria toxoid vaccine, inactivated / tetanus toxoid vaccine, inactivated; Translations: [DIPHTH,PERTUS(ACEL L),TETANUS] Drug Allergy 06-10-20 23 Other (See Comments), Unknown [facility] (5 sources) Diphtheria,Pertussi s(Acell),Tetanus Pedi Vaccine; Translations: [DIPHTHERIA,PERTUSS IS(ACELL),TETANUS PEDI VACCINE] Propensity to adverse reactions to drug 06-10-20 23 Other (See Comments) [facility] (1 source) Codeine Drug Allergy 02-14-20 [facility] (1 source) dofetilide Drug Allergy 06 [facility] (1 source) Sulfonamides (Antibiotic) Drug allergy (disorder) 02-14-20 [facility] Medications Current Medications Medication Drug Class(es) Dates Sig (Normalized) Sig (Original) alendronic acid 70 mg oral tablet (20 sources) Bisphosphonate Start: 05-12-2022 End: 12-20-2023 take 1 tablet by mouth every week in the morning alendronate (FOSAMAX) 70 mg tablet Take 1 tablet by mouth one time a week. In the morning with a full glass of water, on an empty stomach. Do not take anything else by mouth or lie down for the next 30 minutes. 12 tablet 0 09/21/2023 12/20/2023 Active Start: 04-03-2019 End: 02-07-2022 take 70 mg by mouth every week Alendronate Discontinue d 70 MG PO every week April 03, 2019 5:52pm February 07, 2022 5:11pm take 1 tablet by radha th in the morning alendronate (Fosamax) 70 mg tablet Take 1 tablet (70 mg) by mouth every 7 days. Take in the morning with a full glass of water, on an empty stomach, and do not take anything else by mouth or lie down for the next 30 min. 0 Active Comment on above: Take 1 tablet by radha th one time a week. In the morning with a full glass of water, on an empty stomach. Do not take anything else by mouth or lie down for the next 30 minutes. alendronic acid 70 mg / cholecalciferol 2800 unt oral tablet (5 sources) Bisphosphonate, Vitamin D take 1 tablet by mouth in the morning alendronate-vitamin D3 (FOSAMAX PLUS D) 70 mg- 2,800 unit per tablet Take 1 tablet by mouth every 7 days. In a.m. with water on empty stomach, nothing else by mouth and remain upright for 30min 0 Active apixaban 5 mg oral tablet (20 sources) Factor Xa Inhibitor Start: 10-30-19 take 1 tablet by mouth twice daily apixaban (Eliquis) 5 mg tablet Indications: Paroxysmal atrial fibrillation (CMS/HCC) Take 1 tablet (5 mg) by mouth 2 times a day. 60 tablet 0 10/30/2023 Active Start: 12-21-2022 take 1 tablet by radha th twice daily Eliquis 5 mg tablet Indications: Paroxysmal atrial fibrillation (CMS/HCC) Take 1 tablet by mouth twice daily 60 tablet 0 09/15/2023 Active Start: 05-08-2019 End: 09-26-2021 take 1 tablet by mouth twice daily apixaban (ELIQUIS) 5 mg tab(s) Take 1 tablet by mouth twice daily. 180 tablet 3 09/08/2020 09/26/2021 Discontinued Comment on above: Take 1 tablet by radha twice daily. Take 5 mg by mouth t wice daily. atorvastatin 40 mg oral tablet (20 sources) HMG-CoA Reductase Inhibitor Start: 4 End: take 1 tablet by mouth once daily atorvastatin (Lipitor) 40 mg tablet Indications: Hyperlipidemia, unspecified hyperlipidemia type Take 1 tablet (40 mg) by mouth once daily. 90 tablet 3 10/22/2023 10/21/2024 Active Start: 04-03-2019 End: 09-13-2021 take 1 tablet by mouth once daily atorvastatin (LIPITOR) 40 mg tablet Indications: Mixed hyperlipidemia Take 1 tablet by mouth once daily. 90 tablet 3 09/13/2021 Active Comment on above: Take 1 tablet by radha once daily. azithromycin 250 mg oral tablet (1 source) Macrolide Antimicrobial Start: End: take 1 tablet by mouth in the morning, then take 2 tablets by mouth once daily, then take 1 tablet by mouth once daily azithromycin (ZITHROMAX) 250 mg tablet Indications: Subacute maxillary sinusitis Take 1 tablet (250 mg total) by mouth in the morning for 5 days. Take 2 tablets the first day, then 1 tablet daily for 4 days.. 6 tablet 0 09/22/2023 09/27/2023 Active B complex-vitamin C-folic acid (Dialyvite) 100-1 mg tablet (3 sources) Start: take 1 tablet by mouth once daily B complex-vitamin C-folic acid (Dialyvite) 100-1 mg tablet Take 1 tablet by mouth once daily. 0 04/25/2019 Active belimumab 120 mg injection (20 sources) B Lymphocyte Stimulator-specific Inhibitor Start: take 1 mg intravenously every three months Belimumab Active 10 mg/kg IV As Directed September 18, 2019 4:21pm EVERY THREE MONTHS Start: 04-25-2019 belimumab (Karla lysta) 120 mg recon soln IV injection Infuse into a venous catheter. 0 04/25/2019 Active Start: 04-03-2019 End: 06-19-2019 take 1 [...] cell) tablet,chewable Align one daily 0 Active take 1 tablet by mouth once milka y Bifidobacterium infantis (ALIGN ORAL) Take 1 tablet by mouth once daily. 0 Active Align CAPS USE A S DIRECTED. Quantity: 0 Refills: 0 Ordered: 01-Aug-2022 DO Active Bifidobacterium infantis (ALIGN ORAL) Take by mouth once daily. 0 Suspended Bifidobacterium infantis (ALIGN ORAL) Take by mouth once daily. 0 Active Comment on above: Take by mouth once d aily. cholecalciferol 0.05 mg oral capsule (20 sources) Vitamin D Start: 04-25-20 19 take 1 capsule by mouth once daily cholecalciferol (Vitamin D-3) 50 mcg (2,000 unit) capsule Take 1 capsule (50 mcg) by mouth once daily. 0 04/25/2019 Active Start: 04-25-2019 take 1 capsule by mo uth once daily Vitamin D3 50 MCG (2000 UT) Oral Capsule TAKE 1 CAPSULE Daily Quantity: 0 Refills: 0 Ordered: 25-Apr-2019 DO Start : 25-Apr-2019 Active Start: 04-03-2019 take 2000 [IU] by mo [facility] once daily Cholecalciferol (Vitamin D3) Active 2000 UNIT PO Daily April 03, 2019 5:52pm End: 09-01-2023 cholecalciferol, vitamin D3, 2,000 units capsule Take by mouth. 0 09/01/2023 Discontinued (Therapy completed) Comment on above: Take by mouth once d aily. cholestyramine resin 4000 mg powder for oral suspension (20 sources) Bile Acid Sequestrant Start: 09-18-2023 Cholestyramine (With Sugar) (Questran) 4 gram powder in packet Active EACH PO Three times daily September 18, 2023 12:00am Start: 02-07-2022 End: 09-01-2023 take 4 g by mouth twice daily Cholestyramine-Aspartame Active 4 GM PO Twice daily February 07, 2022 5:06pm Start: 10-16-2021 End: 10-17-2022 take 4 g by mouth twice daily at mealtime cholestyramine-sucrose (QUESTRAN) 4 gram powder Take 4 g by mouth twice daily with meals. 240 g 3 10/16/2021 10/17/2022 Discontinued Comment on above: Take 4 g by mouth tw ice daily with meals. Take 4 g by mouth th ree times daily with meals. colestipol hydrochloride 1000 mg oral tablet (20 sources) Bile Acid Sequestrant Start: 09-18-2023 Colestipol (Colestid) 1 gram tablet Active 1 GM PO Twice daily September 18, 2023 12:00am Start: 12-30-2021 End: 04-17-2023 take 2 tablets by mouth twice daily colestipol (COLESTID) 1 gram tablet Indications: Diarrhea, unspecified type TAKE 2 TABLETS BY MOUTH TWICE A DAY 360 tablet 3 04/17/2023 Active Start: 08-21-2021 End: 10-16-2021 take 2 tablets by mouth twice daily colestipol (COLESTID) 1 gram tablet Indications: Diarrhea, unspecified type Take 2 tablets by mouth twice daily. 120 tablet 3 08/21/2021 10/16/2021 Discontinued Comment on above: Take 2 tablets by mo ut twice daily. TAKE 2 TABLETS BY MO [facility] TWICE A DAY 12 hr dextromethorphan hydrobromide 30 mg / guaiFENesin 600 mg extended release oral tablet (1 source) Uncompetitive U-jsbcvm-Y-aspartate Receptor Antagonist, Sigma-1 Agonist Start: End: take 1 tablet by mouth every hour dextromethorphan -guaiFENesin (MUCINEX DM) 30-600 mg tablet extended release 12 hr Take 1 tablet by mouth every 12 (twelve) hours for 10 days. 20 tablet 0 09/22/2023 10/02/2023 Active dextromethorphan hydrobromide 1.5 mg/ml / pyrilamine maleate 1.5 mg/ml oral solution (7 sources) Uncompetitive O-igwevy-T-aspartate Receptor Antagonist, Sigma-1 Agonist Start: take 5 mL by mouth four times daily as needed for cough and congestion pyrilamine-dextr omethorphan 7.5-7.5 mg/5 mL liquid Indications: Subacute maxillary sinusitis Take 5 mL by mouth 4 (four) times a day as needed (cough and congestion). 200 mL 1 09/22/2023 Active Start: 07-16-2023 End: 09-01-2023 take 10 mL by mouth four times daily as needed for cough pyrilamine-dextromethorphan 7.5-7.5 mg/5 mL liquid Indications: Viral upper respiratory tract infection Take 10 mL by mouth 4 (four) times a day as needed (cough., congestion). 473 mL 1 09/01/2023 Active diclofenac sodium 0.01 mg/mg topical gel (20 sources) Nonsteroidal Anti-inflammatory Drug Start: 02-04-2023 End: 05-05-2023 apply 2 g topically four times daily diclofenac (VOLTAREN) 1 % topical gel Apply 2 g to affected area four times daily. 200 g 2 02/04/2023 05/05/2023 Active Comment on above: Apply 2 g to affected area four times da rashard. flecainide acetate 150 mg oral tablet (11 sources) Antiarrhythmic Start: 10-29-2023 End: 10-28-2024 take 1 tablet by mouth twice daily flecainide (Tambocor) 150 mg tablet Indications: Paroxysmal atrial fibrillation (CMS/HCC) Take 1 tablet (150 mg) by mouth 2 times a day. 180 tablet 3 10/29/2023 10/28/2024 Active Start: 09-17-2023 End: 09-16-2024 take 1 tablet by mouth twice daily flecainide (Tambocor) 100 mg tablet Indications: Paroxysmal atrial fibrillation (CMS/HCC) Take 1 tablet (100 mg) by mouth 2 times a day. 180 tablet 3 09/17/2023 10/29/2023 Discontinued (Dose adjustment) Start: 09-17-2023 take 1 tablet by radha th every twelve hours flecainide (TAMBOCOR) 100 mg tablet Take 1 tablet by mouth every 12 hours. 0 09/17/2023 Active Comment on above: Take 1 tablet by radha th every 12 hours. furosemide 20 mg oral tablet (20 sources) Loop Diuretic Start: 07-13-2023 take 1 tablet by mouth once daily furosemide (LASIX) 20 mg tablet Take 1 tablet by mouth once daily 90 tablet 1 07/13/2023 Active Start: 09-30-2019 take 1 tablet by radha th once daily furosemide (Lasix) 40 mg tablet Take 1 tablet (40 mg) by mouth once daily. 0 10/05/2019 Active Start: 04-09-2019 End: 06-19-2019 take 20 [...] 1 tablet by mouth twice daily hydroxychloroquine (Plaquenil) 200 mg tablet Take 1 tablet (200 mg) by mouth 2 times a day. 0 04/25/2019 Active Comment on above: take 1 tablet by radha th twice a day take with food or milk NEEDS LABS take 1 tablet by radha th twice a day with food hyoscyamine sulfate 0.125 mg sublingual tablet (5 sources) hyoscyamine (LEV SIN) 0.125 mg SL tablet levothyroxine sodium 0.05 mg oral tablet (20 sources) l-Thyroxine Start: 2022 End: 2023 take 1 tablet by mouth in the morning levothyroxine (SYNTHROID, LEVOTHROID) 50 MCG tablet Take 1 tablet (50 mcg total) by mouth in the morning. 30 tablet 1 08/20/2023 Active Start: 09-24-2020 End: 09-17-2023 take 1 tablet by mouth once daily levothyroxine (SYNTHROID) 75 mcg tablet Take 75 mcg by mouth once daily. 0 09/24/2020 Active Comment on above: Take 75 mcg by mouth once daily. Fetutjcl-Aph-Qb-Lyc open-Lutein (Centrum Silver) 0.4-300-250 mg-mcg-mcg Tablet (4 sources) Start: 04-03-2019 take 1 tablet by mouth once daily Wzbwping-Ifj-Ry-Ly copen-Lutein (Centrum Silver) 0.4-300-250 mg-mcg-mcg Tablet Active 1 TAB PO Daily April 03, 2019 5:52pm Start: 04-03-2019 take 1 tablet by radha th once daily Qxcbshnv-Snz-Te-Lycopen-Lutein (Centrum Silver) 0.4-300-250 mg-mcg-mcg Tablet Active 1 TAB PO Daily April 02, 2019 11:00pm multivitamin capsule (5 sources) Start: 02-21-2010 multivitamin c apsule Take by mouth. 0 02/21/2010 Active multivitamin with minerals iron-free (Centrum Silver) (3 sources) Start: 04-25-2019 take 1 tablet by mouth once daily multivitamin with minerals iron-free (Centrum Silver) Take 1 tablet by mouth once daily. 0 04/25/2019 Active mycophenolate mofetil 500 mg oral tablet (20 sources) Start: 04-03-2019 End: 09-17-2023 mycophenolate (CellCept) 500 mg tablet Take 1 tablet (500 mg) by mouth. Take 1 tablet in am and 2 tablets in pm. 0 04/25/2019 09/17/2023 Discontinued (Therapy completed) Start: 04-03-2019 take 1000 mg by mout h at bedtime Mycophenolate Mofetil Active 1000 MG PO Bedtime April 03, 2019 5:52pm Start: 12-25-2016 End: 09-01-2023 mycophenolate (CELLCEPT) 500 mg tablet Take 2 tablets (1,000 mg total) by mouth. 0 12/25/2016 09/01/2023 Discontinued (Discontinued by another clinician) Comment on above: take 2 tablets by mo uth daily take 1 tablet by radha th daily nitrofurantoin, macrocrystals 25 mg / nitrofurantoin, monohydrate 75 mg oral capsule (3 sources) Nitrofuran Antibacterial Start: 02-06-20 End: 02-11-20 take 1 capsule by mouth twice daily nitrofurantoin monohydrate and macrocrystal (MACROBID) 100 mg capsule Take 1 capsule by mouth twice daily for 5 days. 10 capsule 0 02/05/2023 02/10/2023 Active Comment on above: Take 1 capsule by mo [facility] twice daily for 5 days. 2 ml ondansetron 2 mg/ml injection (19 sources) Serotonin-3 Receptor Antagonist Start: 03-13-20 End: [...] 08, 2019 2:59pm June 19, 2019 12:48pm perflutren lipid microsphere s 1.3 mL in NaCl (PF) 0.9% 10 mL injection (DEFINITY) (20 sources) Start: 03-27-2022 End: 06-26-2023 perflutren lipid microsphere s 1.3 mL in NaCl (PF) 0.9% 10 mL injection (DEFINITY) Start: 05-16-2021 End: 08-15-2022 perflutren lipid microsphere s 1.3 mL in NaCl (PF) 0.9% 10 mL injection (DEFINITY) predniSONE 20 mg oral tablet (20 sources) Start: 09-22-2023 take 1 tablet by mouth in the morning predniSONE (DELTASONE) 20 mg tablet Indications: Subacute maxillary sinusitis Take 1 tablet (20 mg total) by mouth in the morning. 7 tablet 0 09/22/2023 Active Start: 09-30-2019 End: 02-07-2022 Prednisone Discontinued 0 .R OUTE .COMPLEX September 30, 2019 10:28am February 07, 2022 5:01pm 4 pills every morning for 2 days, then 3 pills every morning for 4 days, then 2 pills every morning for 4 days, then go back to usual dose of prednisone every day after that. Start: 09-30-2019 End: 02-07-2022 Prednisone Discontinued 0 .R OUTE .COMPLEX September 30, 2019 11:54am February 07, 2022 5:01pm second part of prednisone taper: take 2 pills a day for 4 days, then 1 pill a day for 4 days, then 1 pill every other day x 2 doses, then stop. Start: 06-19-2019 End: 09-30-2019 take 10 mg by mouth once daily Prednisone Discontinued 10 MG PO Daily June 19, 2019 11:45am September 30, 2019 11:10am Start: 05-12-2019 End: 06-19-2019 take 40 mg [...] injection (COMPAZINE) simvastatin 40 mg oral tablet (5 sources) HMG-CoA Reductase Inhibitor simvastatin (ZOCOR) 40 mg tablet Take 1 tablet (40 mg total) by mouth. 0 Active 125 ml sodium chloride 9 mg/ml prefilled syringe (20 sources) Start: End: sodium chloride 0.9 % (flush) 10 mL (BD POSIFLUSH) spironolactone 50 mg oral tablet (20 sources) Aldosterone Antagonist Start: End: take 1 tablet by mouth once daily spironolactone (ALDACTONE) 50 mg tablet Take 1 tablet by mouth once daily 90 tablet 1 09/21/2023 Active Start: 09-18-2019 End: 09-30-2019 take 25 mg by mouth once daily Spironolactone Discontinued 25 MG PO Daily September 18, 2019 4:21pm September 30, 2019 12:09pm Comment on above: Take 50 mg by mouth once daily. Sucralfate (Carafate) 100 mg/mL Suspension (4 sources) Start: 02-07-2022 take 1 mL by mouth four times daily Sucralfate (Carafate) 100 mg/mL Suspension Active 10 ML PO Four times daily February 07, 2022 4:59pm Start: 02-07-2022 take 1 mL by mouth f our times daily Sucralfate (Carafate) 100 mg/mL Suspension Active 10 ML PO Four times daily February 06, 2022 11:00pm 24 hr venlafaxine 150 mg extended release oral capsule (20 sources) Serotonin and Norepinephrine Reuptake Inhibitor Start: 06-11-2023 End: 09-14-2023 take 1 capsule by mouth every twenty-four hours in the morning venlafaxine XR (EFFEXOR-XR) 150 mg 24 hr capsule Take 1 capsule by mouth in the morning 90 capsule 0 09/14/2023 Active Start: 04-03-2019 take 1 capsule by [facility] once daily venlafaxine XR (Effexor XR) 150 mg 24 hr capsule Take 1 capsule (150 mg) by mouth once daily. 0 04/25/2019 Active Comment on above: Take 1 capsule by mo [facility] once daily. Vitamin B Complex (B Complex 1) Tablet (4 sources) Start: 04-03-2019 take 1 tablet by mouth once daily Vitamin B Complex (B Complex 1) Tablet Active 100 MG PO Daily April 03, 2019 5:52pm Start: 04-03-2019 take 1 tablet by mouth once da rashard Vitamin B Complex (B Complex 1) Tablet Active 100 MG PO Daily April 02, 2019 11:00pm vitamin B complex (B COMPLEX) tablet extended release (5 sources) Start: 05-02-2010 vitamin B comp patricia (B COMPLEX) tablet extended release Take by mouth. 0 05/02/2010 Active warfarin sodium 5 mg oral tablet (9 sources) Vitamin K Antagonist Start: 11-22-2010 End: [...] for pain. ALPRAZolam 0.5 mg oral tablet (4 sources) Benzodiazepine Start: 04-09-20 End: 05-08-20 take 1 tablet by mouth once daily at bedtime Alprazolam (Xanax) 0.5 mg tablet Discontinued 0.5 MG PO Daily at bedtime 06 05April 09, 2019 12:59pm May 08, 2019 11:52am amiodarone hydrochloride 200 mg oral tablet (20 sources) Antiarrhythmic Start: 06-23-20 End: 02-08-20 take 200 mg by mouth twice daily Amiodarone Discontinued 200 MG PO Twice daily September 18, 2019 5:26pm February 07, 2022 4:11pm Start: 06-02-2019 End: 06-23-2019 take 200 mg by mouth once daily Amiodarone Discontinue d 200 MG PO Daily 30 June 02, 2019 3:08pm June 23, 2019 [...] 2019 2:58pm amLODIPine 5 mg oral tablet (12 sources) Dihydropyridine Calcium Channel Zaida Start: 06-19-2019 End: 09-18-2019 take 5 mg by mouth once daily Amlodipine Discontinued 5 MG PO Daily June 19, 2019 12:40pm September 18, 2019 4:31pm Start: 04-03-2019 End: 04-09-2019 take 5 mg by mouth once daily Amlodipine Discontinued 5 MG PO Daily April 03, 2019 5:52pm April 09, 2019 12:17pm amoxicillin 500 mg oral capsule (20 sources) Penicillin-class Antibacterial Start: 06-11-2023 amoxicillin (AMOXIL) [...] on above: Take 4 tablets by mo [facility] 1 hour prior to procedure and 2 tablets by mouth 6 hours after procedure Take 4 tablets one h our prior to dental procedure amylase [id number] unt / lipase [id number] unt / protease [id number] unt delayed release oral capsule (4 sources) Start: 09-30-19 End: 02-08-20 take [id number] capsules by mouth once Cnifjl-Wxexeknq-Loxy ase (Creon) 24,000-76,000 -120,000 unit Capsule,Delayed Release(Dr/Ec) Discontinued 3 CAP PO 3x/Day with meals 300 September 30, 2019 11:53am February 07, 2022 5:11pm Further refills per GI Dr. Carrasco busPIRone hydrochloride 10 mg oral tablet (20 sources) Start: 05-15-20 take 1 tablet by mouth once daily at bedtime busPIRone (BUSPAR) 10 mg tablet Take 10 mg by mouth daily at bedtime. 0 05/15/2020 Active Comment on above: Take 10 mg by mouth daily at bedtime. calcium carbonate 500 mg chewable tablet (20 sources) Start: 08-27-19 take 500 mg by mouth every hour as needed calcium carbonate (TUMS) 500 mg chew Take 1 tablet by mouth every hour as needed (mouth or hand numbness or tingling). 0 08/27/2022 Active Comment on above: Take 1 tablet by radha th every hour as needed (mouth or hand numbness or tingling). calcium carbonate 1250 mg / cholecalciferol 200 unt oral tablet (20 sources) Vitamin D Start: 08-27-19 take 1 tablet by mouth three times daily [id number]-la tamin D3 500 mg-5 mcg (200 unit) per tablet Take 1 tablet by mouth three times daily. 0 08/27/2022 Active Start: 09-18-2019 End: 02-07-2022 [...] above: Take 1 tablet by radha th three times daily. Calcium Carbonate / vitamin D3 (20 sources) End: 05-12-2022 CALCIUM CARBONATE/VITAMIN D3 (CALCIUM 600 + D ORAL) Take by mouth once daily. 0 05/12/2022 Discontinued CALCIUM CARBONAT E/VITAMIN D3 (CALCIUM 600 + D ORAL) Take by mouth once daily. 0 Active Comment on above: Take by mouth once d aily. Calcium Carbonate-Vitamin D3 (Calcium 600 + D(3)) 600-125 mg-unit Tablet (1 source) Start: 0 End: 2 take 2 tablets by mouth once daily Calcium Carbonate-Vitamin D3 (Calcium 600 + D(3)) 600-125 mg-unit Tablet Discontinued 2 TAB PO Daily September 18, 2019 12:00am February 07, 2022 4:11pm carvedilol 12.5 mg oral tablet (4 sources) alpha-Adrenergic Zaida, beta-Adrenergic Zaida Start: 9 End: 9 take 12.5 mg by mouth twice daily Carvedilol Discontinued 12.5 MG PO Twice daily April 03, 2019 5:52pm April 09, 2019 12:17pm celecoxib 200 mg oral capsule (20 sources) Nonsteroidal Anti-inflammatory Drug Start: 2 take 1 capsule by mouth twice daily celecoxib (CELEBREX) 200 mg capsule Take 200 mg by mouth twice daily. 0 02/21/2022 Active Start: 04-03-2019 End: 09-21-2023 take 1 capsule by mouth once daily celecoxib (CeleBREX) 200 mg capsule Take 1 capsule (200 mg) by mouth once daily. 0 04/25/2019 Active Comment on above: Take 200 mg by mouth twice daily. Take 200 mg by mouth once daily. Centrum Silver Oral Tablet (8 sources) Start: [...] above: Take 1 capsule by mo uth four times daily. cilgavimab 300 mg intramuscular injection (EVUSHELD) (1 source) Start: End: cilgavimab 300 mg intramuscular injection (EVUSHELD) dicloxacillin 500 mg oral capsule (2 sources) Penicillin-class Antibacterial Start: End: take 1 capsule by mouth four times daily dicloxacillin (DYNAPEN) 500 mg capsule Take 1 capsule by mouth four times daily. 28 capsule 0 01/08/2023 01/22/2023 Discontinued (Course of therapy completed) Comment on above: Take 1 capsule by [facility] four times daily. 24 hr dilTIAZem hydrochloride 180 mg extended release oral capsule (4 sources) Calcium Channel Zaida Start: End: take 180 mg by mouth once [...] mg injection ezetimibe 10 mg oral tablet (4 sources) Dietary Cholesterol Absorption Inhibitor Start: 04-03-2019 [...] oral tablet (2 sources) Thiazide Diuretic, beta-Adrenergic Zaida End: 4 metoprolol ta-hydroCHLOROthiaz (LOPRESSOR HCT) 100-25 mg per tablet hydrocortisone 100 mg injection (3 sources) Corticosteroid Start: 2 End: 2 hydrocortisone sodium succinate (PF) 100 mg injection (Solu-CORTEF) iv contrast (will be provided with radiology test) (20 sources) Start: 4 iv contrast (will be provided with radiology test) Indications: Pancreatic cyst MRI PANC/JEANIE Inject, intravenously, once for 1 [...] contrast administration guidelines link. 1 Each 0 09/30/2023 Active Start: 03-27-2022 End: 03-28-2022 iv contrast (will be provide d with radiology test) MRI Cardiac w/Qflow Inject, [...] in the MR contrast administration guidelines link lisinopril 20 mg oral tablet (8 sources) Angiotensin Converting Enzyme Inhibitor Start: 0 End: 0 take 20 mg by mouth once daily Lisinopril Discontinued 20 MG PO Daily September 18, 2019 4:21pm September 30, 2019 12:09pm Start: 04-03-2019 End: 04-09-2019 take 20 mg by mouth once daily Lisinopril Discontinued 20 MG PO Daily April 03, 2019 5:52pm April 09, 2019 12:17pm loperamide hydrochloride 2 mg oral capsule (4 sources) Opioid Agonist Start: 05-12-2019 End: 06-19-2019 take 2 mg by mouth every four hours Loperamide Discontinued 2 MG PO Q4H 30 May 12, 2019 2:54pm June 19, 2019 12:46pm magnesium oxide 400 mg oral tablet (4 sources) Start: 04-09-2019 End: 09-18-2019 take 400 mg by mouth twice daily Magnesium Oxide Discontinued 400 MG PO Twice daily 60 April 09, 2019 11:09am September 18, 2019 4:31pm mesalamine 1200 mg delayed release oral tablet (20 sources) Aminosalicylate Start: 08-31-2023 take 4 tablets by mouth once daily Mesalamine (LIALDA) 1.2 gram EC tablet Take 4 tablets by mouth once daily. 360 tablet 1 08/31/2023 Active Start: 04-08-2023 End: 10-09-2023 mesalamine (CANASA) 1,000 mg suppository 1 Suppository by RECTAL route daily at bedtime. 30 Suppository 3 04/08/2023 10/09/2023 Discontinued (Course of therapy completed) Start: 09-22-2021 End: 03-16-2023 take 4 tablets [...] Start : 06-Dec-2019 Active Start: 06-19-2019 take 1.2 mg by mouth four times daily mesalamine (Lialda) 1.2 gram EC tablet Take 1.2 mg by mouth 4 times a day. 0 12/06/2019 Active Comment on above: Take 4 tablets by mo ut once daily. take 4 tablets by mo ut once daily 1 Suppository by REC NNAMDI route daily at bedtime. Mesalamine (Lialda) 1.2 gram Tablet,Delayed Release (Dr/Ec) (4 sources) Start: 9 End: 9 take 4 tablets by mouth once daily Mesalamine (Lialda) 1.2 gram Tablet,Delayed Release (Dr/Ec) Discontinued 4.8 GM PO Daily May 12, 2019 2:54pm June 19, 2019 12:45pm Start: 05-12-2019 End: 06-19-2019 take 4 tablets by mouth once daily Mesalamine (Lialda) 1.2 gram Tablet,Delayed Release (Dr/Ec) Discontinued 4.8 GM PO Daily May 11, 2019 11:00pm June 19, 2019 11:45am methylPREDNISolone (13 sources) Corticosteroid Start: 03-21-2021 End: 01-01-2022 methylPREDNISolone (MEDROL DOSE-PACK) 4 mg Dose-Pack As [...] on above: As Instructed per joseph mace 24 hr metoprolol succinate 50 mg extended release oral tablet (20 sources) beta-Adrenergic Zaida Start: 08-20-2022 take 1 tablet by mouth every twenty-four hours in the morning, then take 2 tablets by mouth in the evening metoprolol succinate ER (TOPROL XL) 50 mg 24 hr tablet Indications: Chronic diastolic heart failure (HCC) TAKE 1 TABLET BY MOUTH IN THE MORNING AND 2 TABLETS BY MOUTH IN THE EVENING 270 tablet 3 02/09/2023 Active Start: 01-28-2022 End: 02-09-2023 metoprolol succinate [...] MG PO Twice daily September 18, 2019 3:31pm Start: 06-23-2019 End: 09-18-2019 take 150 mg [...] 50 MG PO Daily May 08, 2019 10:52am June 23, 2019 1:24pm End: 09-17-2023 take 1 tablet by mouth in the morning, then take 2 tablets by mouth in the evening metoprolol tartrate (Lopressor) 50 mg tablet Take by mouth. Take 1 tablet in am and 2 tablets in pm. 0 09/17/2023 Discontinued (Therapy completed) Comment on above: 50mg in am and 100mg in pm. TAKE 1 TABLET BY RADHA TH IN THE MORNING AND 2 TABLETS BY MOUTH IN THE EVENING multivitamins w-minerals/lut(CENTRUM SILVER TAB) (20 sources) Start: 02-21-2010 multivitamins w-minerals/lut(CENTRUM SILVER TAB) Take one(1) tablet daily. 0 02/21/2010 Suspended Start: 02-21-2010 multivitamins w-minerals/lut(CENTRUM SILVER TAB) Take one(1) tablet daily. 0 02/21/2010 Active Comment on above: Take one(1) tablet d aily. MV with Iff-Jheojekn-Dyaygi (CENTRUM SILVER) 0.4 mg-300 mcg- 250 mcg tab (20 sources) take 1 tablet by mouth once daily MV with Gkv-Brztxjac-Jqrkzv (CENTRUM SILVER) 0.4 mg-300 mcg- 250 mcg tab Take 1 tablet by mouth once daily. 0 Active Comment on above: Take 1 tablet by radha th once daily. omeprazole 40 mg delayed release oral capsule (5 sources) Proton Pump Inhibitor Start: 2 End: [...] on above: Take 1 capsule by mo [facility] twice daily. pantoprazole 40 mg delayed release oral tablet (20 sources) Proton Pump Inhibitor Start: 2 take 1 tablet by mouth in the morning, then take 1 tablet by mouth at bedtime pantoprazole (PROTONIX) 40 mg EC tablet Take 1 tablet (40 mg total) by mouth in the morning and 1 tablet (40 mg total) before bedtime. 0 05/15/2022 Active Start: 09-12-2021 End: 06-16-2023 take 1 tablet by mouth every twelve hours [address]op[address] (PROTONIX) 40 mg tablet take 1 tablet by mouth twice a day 60 tablet 3 06/16/2023 Active Comment on above: Take 1 tablet by radha twice daily. take 1 tablet by radha twice a day raNITIdine 150 mg oral tablet (2 sources) [...] times daily. tixagevimab 300 mg intramuscular injection (EVUSHELD) (1 source) Start: 2 End: 2 tixagevimab 300 mg intramuscular injection (EVUSHELD) torsemide 20 mg oral tablet (4 sources) Loop Diuretic Start: 0 End: 0 take 40 mg by mouth once daily Torsemide Discontinued 40 MG PO Daily September 18, 2019 4:21pm September 30, 2019 12:09pm Turmeric extract (4 sources) Start: 9 End: 9 take 400 mg by mouth once daily Turmeric Discontinued 400 MG PO Daily April 03, 2019 5:52pm June 19, 2019 12:48pm Start: 04-03-2019 End: 06-19-2019 take 400 mg by mouth once daily Turmeric Discontinued 400 MG PO Daily April 02, 2019 11:00pm June 19, 2019 11:48am vancomycin 125 mg oral capsule (11 sources) Glycopeptide Antibacterial Start: 10-29-2022 End: 09-01-2023 vancomycin (VANCOCIN) 125 mg capsule Start: 10-01-2022 [...] on above: Take 1 capsule by mo ut four times daily for 10 days. Take 1 capsule by mo ut four times daily for 14 days. Take 1 capsule by mo uth four times daily for 14 days, THEN [...] Active Problems Problem Classification Problem Date Documented Da te Episodic/Chronic Abdominal pain (7 sources) Epigastric pain; Translations: [Epigastric pain] Onset: [...] without rupture] Onset: 2 10-29-2021 Chronic Asthma (5 sources) Reactive airway disease; Translations: [Unspecified asthma, uncomplicated] Onset: 6 07-22-2022 Chronic Biliary tract disease (5 sources) Biliary calculus; Translations: [Calculus of gallbladder without cholecystitis without obstruction] 09-30-2019 Episodic Cardiac dysrhythmias (20 sources) Paroxysmal atrial fibrillation; Translations: [Atrial fibrillation] Onset: 0 12-19-2020 Chronic Chronic kidney disease (5 sources) Chronic kidney disease stage 3; Translations: [Stage 3 chronic kidney disease] 04-04-2019 Chronic Chronic ulcer of skin (4 sources) Ulcer of toe; Translations: [Non-pressure chronic ulcer of other part of right foot limited to breakdown of skin] Chronic Coagulation and hemorrhagic disorders (20 sources) Thrombocytopenic disorder; Translations: [Thrombocytopenia, unspecified] Onset: 3 04-10-2023 Chronic Complications of surgical procedures or medical care (1 source) History of parathyroidectomy; Translations: [Postprocedural hypoparathyroidism] Chronic Congestive heart failure; nonhypertensive (20 sources) Chronic congestive heart failure; Translations: [Heart failure, unspecified] Onset: 9 Resolved: 2 12-19-2020 Chronic Digestive congenital anomalies (1 source) Congenital pancreatic cyst; 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] 09-30-2023 Chronic Disorders of lipid metabolism (20 sources) Mixed hyperlipidemia; Translations: [Mixed hyperlipidemia] Onset: 1 03-05-2021 Chronic Diverticulosis and diverticulitis (6 sources) Diverticulosis of large intestine without perforation [...] Onset: 3 Episodic Fluid and electrolyte disorders (4 sources) Hypokalemia; Translations: [Hypokalemia] 09-18-2019 Episodic Gastroduodenal ulcer (except hemorrhage) (5 sources) Gastric ulcer; Translations: [Gastric ulcer, unspecified as acute or chronic, without hemorrhage or perforation] Onset: 6 07-22-2022 Chronic Headache; including migraine (7 sources) Headache; Translations: [Headache] 02-07-2022 Episodic Immunizations and screening for infectious disease (1 source) Encounter for immunization; Translations: [Other specified vaccinations against streptococcus pneumoniae [pneumococcus]] Episodic Intestinal infection (3 sources) Clostridium difficile diarrhea; Translations: [Enterocolitis due to Clostridium difficile, not specified as recurrent] Onset: 3 Episodic Malaise and fatigue (5 sources) Asthenia; Translations: [Weakness] 02-08-2022 Episodic Mood disorders (5 sources) Chronic depression; Translations: [Chronic depression] Onset: 2 07-22-2022 Chronic Nephritis; nephrosis; renal sclerosis (20 sources) Membranous glomerulonephritis; 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] Onset: 0 03-15-2010 Chronic Nonspecific chest pain (12 sources) Chest wall pain; Translations: [Other chest pain] 06-21-2019 Episodic Nutritional deficiencies (20 sources) Vitamin D deficiency; Translations: [Vitamin D deficiency, unspecified] Onset: 0 05-03-2010 Chronic Osteoarthritis (20 sources) Degenerative joint disease of ankle AND/OR foot; Translations: [Primary osteoarthritis, unspecified ankle and foot] Onset: 4 07-31-2016 Chronic Other aftercare (17 sources) Drug therapy finding; Translations: [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) drug therapy] Episodic Other aftercare (2 sources) Long-term current use of 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; Translations: [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] Episodic Other aftercare (3 sources) 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) drug therapy; Translations: [OTH BAILING MACHINE OPERATOR CURRENT DRUG THERAPY] Onset: 3 Episodic Other aftercare (3 sources) [facility] (current) use of anticoagulants; Translations: [BAILING MACHINE OPERATOR CURRNT USE ANTICOAGULANTS] Onset: 2 Episodic Other aftercare (1 source) [facility] (current) use of 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; Translations: [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] Onset: 4 Episodic Other bone disease and musculoskeletal deformities (4 sources) Osteopenia; Translations: [Other specified disorders of bone density and structure, unspecified site] Episodic Other bone disease and musculoskeletal deformities (1 source) Other specified disorders of bone density and structure, unspecified site; Translations: [Osteopenia, unspecified location] Onset: 4 Episodic Other circulatory disease (4 sources) Low blood pressure; Translations: [Hypotension, unspecified] 05-08-2019 Episodic Other connective tissue disease (20 sources) History of repair of hip joint; Translations: [Presence of right artificial hip joint] Onset: 1 12-19-2020 Chronic Other connective tissue disease (20 sources) History of total hip arthroplasty; Translations: [Presence of unspecified artificial hip joint] Onset: 1 12-20-2020 Chronic Other endocrine disorders (20 sources) Hyperparathyroidism; Translations: [Hyperparathyroidism, unspecified] Onset: 2 Chronic Other endocrine disorders (1 source) Primary hyperparathyroidism; Translations: [Primary hyperparathyroidism] Chronic Other endocrine disorders (11 sources) Disorder of parathyroid gland; Translations: [Unspecified disorder of parathyroid gland] Onset: 3 06-10-2023 Chronic Other endocrine disorders (1 source) Hyperparathyroidism, unspecified; Translations: [Hyperparathyroidism (HCC)] Onset: 3 Chronic Other gastrointestinal disorders (14 sources) Diarrhea; Translations: [Diarrhea, unspecified] Episodic Other gastrointestinal disorders (5 sources) Diarrhea, unspecified; Translations: [DIARRHEA UNSPECIFIED] Onset: 2 Episodic Other hematologic conditions (4 sources) High troponin I level; Translations: [Other specified abnormalities of plasma proteins] 06-20-2019 Episodic Other hematologic conditions (4 sources) Raised cardiac enzyme or marker; Translations: [Other specified abnormalities of plasma proteins] 06-19-2019 Episodic Other lower respiratory disease (8 sources) Dyspnea; Translations: [Shortness of breath] 04-03-2019 Episodic Other lower respiratory disease (4 sources) Hypoxia; Translations: [Hypoxemia] 05-08-2019 Episodic Other lower respiratory disease (1 source) Solitary pulmonary nodule; Translations: [SOLITARY PULMONARY NODULE] Onset: 3 Episodic Other lower respiratory disease (1 source) Cough Onset: 4 Episodic Other nervous system disorders (20 sources) Plantar nerve lesion; Translations: [Lesion of plantar nerve, unspecified lower limb] Onset: 4 01-02-2014 Chronic Other nervous system disorders (4 sources) Metabolic encephalopathy; Translations: [Metabolic encephalopathy] 05-08-2019 Chronic Other nervous system disorders (3 sources) Disorder of brain; Translations: [Encephalopathy, unspecified] 02-09-2022 Chronic Other nervous system disorders (5 sources) Carpal tunnel syndrome; Translations: [Carpal tunnel [...] Chronic Other nutritional; endocrine; and metabolic disorders (14 sources) Morbid obesity; Translations: [Morbid (severe) obesity due to excess calories] Onset: 3 09-30-2019 Chronic Other nutritional; endocrine; and metabolic disorders (4 sources) Hyperbilirubinemia; Translations: [Other disorders of bilirubin metabolism] 09-19-2019 Chronic Other nutritional; endocrine; and metabolic disorders (3 sources) Obesity; Translations: [Obesity, unspecified] 02-08-2022 Chronic Other nutritional; endocrine; and metabolic disorders (3 sources) Obesity, unspecified; Translations: [Obesity, unspecified] Onset: 3 Chronic Other nutritional; endocrine; and metabolic disorders (20 sources) Hypercalcemia; Translations: [Hypercalcemia] Onset: 2 Chronic Other nutritional; endocrine; and metabolic disorders (8 sources) Severe obesity; Translations: [Morbid obesity] Chronic Other nutritional; endocrine; and metabolic disorders (3 sources) Body mass index (BMI) 40.0-44.9, adult; Translations: [BODY MASS INDEX BMI 40.0-44.9 ADULT] Onset: 3 Chronic Other nutritional; endocrine; and metabolic disorders (1 source) Hypomagnesemia; Translations: [Hypomagnesemia] 04-17-2023 Chronic Other nutritional; endocrine; and metabolic disorders (2 sources) Morbid (severe) obesity due to excess calories; Translations: [Morbid (severe) obesity due to excess calories (CMS/HCC)] Onset: 4 Chronic Other skin disorders (5 sources) Callosity; Translations: [Corns and callosities] Episodic Other upper respiratory disease (5 sources) Allergic rhinitis; Translations: [Allergic rhinitis, unspecified] Onset: 2 07-22-2022 Chronic Other upper respiratory infections (2 sources) Viral upper respiratory tract infection; Translations: [Acute upper respiratory infection, unspecified] Onset: 4 09-01-2023 Episodic Ovarian cyst (1 source) Unspecified ovarian cyst, right side; Translations: [UNSPECIFIED OVARIAN CYST RIGHT SIDE] Onset: 3 Episodic Pancreatic disorders (not diabetes) (11 sources) Pancreatitis; Translations: [Acute pancreatitis without necrosis or infection, unspecified] Onset: 4 09-18-2019 Episodic Darby-; endo-; and myocarditis; cardiomyopathy (except that caused by tuberculosis or sexually transmitted disease) (1 source) Hypertrophic obstructive cardiomyopathy; Translations: [Obstructive hypertrophic cardiomyopathy] Chronic Regional enteritis and ulcerative colitis (11 sources) Ulcerative colitis; Translations: [Ulcerative colitis, unspecified, without complications] Onset: 9 06-19-2019 Chronic Residual codes; unclassified (20 sources) Sleep apnea; Translations: [Sleep apnea, unspecified] Onset: 2 12-19-2020 Chronic Residual codes; unclassified (18 sources) Obstructive sleep apnea syndrome; Translations: [Obstructive sleep apnea (adult) (pediatric)] Onset: 2 06-19-2019 Chronic Residual codes; unclassified (4 sources) Obstructive sleep apnea (adult) (pediatric); Translations: [Obstructive sleep apnea (adult)(pediatric)] Onset: 3 Chronic Residual codes; unclassified (8 sources) Obstructive sleep apnea of adult; Translations: [Obstructive sleep apnea (adult)(pediatric)] Chronic Residual codes; unclassified (4 sources) Altered mental status; Translations: [Altered mental status, unspecified] 02-07-2022 Episodic Residual codes; unclassified (3 sources) Altered mental status, unspecified; Translations: [Altered mental status] Episodic Residual codes; unclassified (3 sources) Postmenopausal state; Translations: [Asymptomatic menopausal state] Episodic Residual codes; unclassified (2 sources) Other specified 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 states; Translations: [OTH SPECIFIED POSTPROCEDURAL STATES] Onset: 3 Episodic Residual codes; unclassified (5 sources) Never smoked any substance; Translations: [Other specified health status] Onset: 4 09-17-2023 Episodic Residual codes; unclassified (1 source) History of parathyroidectomy; Translations: [Other specified 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 states] 10-13-2023 Episodic Residual codes; unclassified (1 source) Acquired absence of other organs; Translations: [S/P parathyroidectomy] Onset: 4 Episodic Residual codes; unclassified (2 sources) Other specified health status; Translations: [Other specified health status] Onset: 4 Episodic Skin and subcutaneous tissue infections (1 [...] abnormal findings] Onset: 9 Unclassified (3 sources) MCC (current) use of anticoagulants; Translations: [termite exterminator (current) use of anticoagulants] Onset: 9 Unclassified (1 source) 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) drug therapy Onset: 9 Unclassified (1 source) Thoracic aortic aneurysm, without rupture, unspecified; Translations: [Thoracic aortic aneurysm, without rupture, unspecified] Onset: 3 Unclassified (1 source) CONTACT W/AND (SUSP) EXPOS COVID-19; Translations: [CONTACT W/AND (SUSP) EXPOS COVID-19] Onset: 3 Urinary tract infections (11 sources) Urinary tract infectious disease; Translations: [Urinary tract infection, site not specified] 09-29-2019 Episodic Viral infection (1 source) COVID-19; Translations: [COVID-19] Onset: 4 Past or Other Problems Problem Classification Problem Date Documented Da te Episodic/Chronic Genitourinary symptoms and ill-defined conditions (20 sources) Proteinuria; Translations: [Proteinuria, unspecified] Onset: 02-22-2010 02-22-2010 Episodic Inflammation; infection of eye (except that caused by tuberculosis or sexually transmitteddisease) (20 sources) Conjunctivitis; Translations: [Unspecified conjunctivitis] Onset: 03-22-2019 03-22-2019 Episodic Mood disorders (5 sources) Mood disorders Onset: 04-15-2023 Resolved: 09-01-2023 04-15-2023 Neoplasms of unspecified nature or uncertain behavior (5 sources) Intraductal papillary mucinous neoplasm of pancreas; Translations: [Neoplasm of unspecified behavior of digestive system] Onset: 03-17-2020 07-22-2022 Episodic Noninfectious gastroenteritis (7 sources) Inflammatory bowel disease; Translations: [Noninfective gastroenteritis and colitis, unspecified] Onset: 04-02-2023 05-11-2019 Episodic Other aftercare (20 sources) Patient encounter status; Translations: [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) drug 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] Onset: 11-10-2012 11-10-2012 Episodic Other aftercare (15 sources) Taking high risk medication; Translations: [Other residential (current) drug therapy] Onset: 06-10-2023 Episodic Other aftercare (4 sources) Long-term current use of anticoagulant; Translations: [MCC (current) use of anticoagulants] Onset: 06-10-2023 06-10-2023 Episodic Other connective tissue disease (20 sources) [...] 07-28-2018 10-22-2020 Episodic Other connective tissue disease (20 sources) Other synovitis and tenosynovitis, unspecified ankle and foot; Translations: [Tenosynovitis of foot and ankle] Onset: 08-07-2015 07-31-2016 Episodic Other connective tissue disease (1 source) Pain in left foot; Translations: [Pain in left foot] Onset: 07-02-2023 Episodic Other diseases of kidney and ureters (5 sources) Abnormal renal function; Translations: [Disorder of [...] Never smoked tobacco; Translations: [Never a smoker] Unclassified (3 sources) Onset: 09-17-2023 Resolved: 10-29-2023 09-17-2023 Viral infection (10 sources) Herpes zoster; Translations: [Zoster without complications] Onset: 07-22-2022 07-22-2022 Episodic Results Test Name Value Interpretation Reference Range Facility ECG 12 [place] 10-29-2023 ECG revealed atrial flutter with variable AV conduction [facility] Work Phone: CNPRuth 10-27-2023 CNPN Telephone (RHEUMN) JESUS WOLF ([id number]) 1955 F Date Time Provider Department 10/27/23 NADEGE HAWKINS During your visit today, we recorded the following information about you: Anastasiya Jackman 10/27/2023 3:47 PM Signed Received eye report from [facility] dated on 10/26. Scanned in chart for review. Allergies As of Date: 10/27/2023 Noted Allergy Reaction DOFETILIDE 03/15/2020 14 - [...] spot in area of shot Date Reviewed: 10/13/2023 Reviewed by: Karol Landaverde MA - Fully Assessed Reason for Visit: Results [95] Prescriptions as of 10/28/2023 - flecainide (TAMBOCOR) 100 mg tablet Take 1 tablet by mouth every 12 hours. - iv contrast (will be provided with [...] the MR contrast administration guidelines link. - alendronate (FOSAMAX) 70 mg tablet Take 1 tablet by mouth one time a week. In the morning with a full glass of water, on an empty stomach. Do not take anything else by mouth or lie down for the next 30 minutes. - Mesalamine (LIALDA) 1.2 gram EC tablet Take 4 tablets by mouth once daily. - pantoprazole DR (PROTONIX) 40 mg tablet take 1 tablet by mouth twice a day - amoxicillin (AMOXIL) 500 mg capsule Take 4 tablets one hour prior to dental procedure - colestipol (COLESTID) 1 gram tablet TAKE 2 TABLETS BY MOUTH TWICE A DAY - hydrOXYchloroQUINE (PLAQUENIL) 200 mg tablet take [...] 1 tablet by mouth once daily. - acetaminophen (TYLENOL) 500 mg tablet Take 1 tablet by mouth every 4 hours as needed for pain. - spleehq-jselzdajo-ougi min D3 500 mg-5 mcg (200 unit) per tablet Take 1 tablet by mouth three times daily. - MV with Wkf-Leejzdjf-Bgxrui (CENTRUM SILVER) 0.4 mg-300 mcg- 250 mcg [...] tablet daily. Problem List As Of Date 10/27/2023 Noted Resolved Edema [R60.9] 02/22/2010 Proteinuria [R80.9] 02/22/2010 Essential hypertension [I10] 02/22/2010 Atrial fibrillation (HCC) [I48.91] 02/22/2010 Membranous Glomerulonephritis [N05.2] 03/15/2010 Vitamin D Deficiency [E55.9] 05/03/2010 SLE (systemic lupus erythematosus) (HCC) [M32.9]07/16/2011 Fibromyalgia [M79.7] 03/10/2012 Sleep apnea [G47.30] 07/29/2012 Encounter for long-term (current) use of other *11/10/2012 Osteoarthritis of ankle and foot [M19.079] (more content not included)... [facility] HNO ID: [id number] Author: VAISHALI DE GUZMAN RT(Sandra) Service: Radiology Author Type: Technologist Type: Allied Health Filed: 10/23/2023 13:02 Note Text: Radiology Service Progress Note PATIENT NAME: Jesus Wolf DATE OF SERVICE: October 23, 2023 TIME: 12:45 PM PATIENT IDENTITY VERIFICATION COMPLETED USING TWO [...] NO. PATIENT RELEVANT IMPLANT DATA REVIEWED: Yes PATIENT PRESENTS WITH AN IMPLANTABLE OR ATTACHED ASSISTANT PRINCIPAL: No RADIOLOGY DEPARTMENT: MR; Exam(s) Completed: Body: Pancreas/Biliary PERIPHERAL IV DATA: Site assessment: Clean,Dry and Intact, Site disposition Discontinued SIGNED BY: Vaishali De Guzman RT(R) October 23, 2023 12:45 PM Normal [facility] MR Biliary ducts and Pancrea tic duct WO and W contrast Melly 10-23-2023 [facility] MRI PANC/JEANIE WO/W IVCONon MRI PANC/JEANIE WO/W IVCON * * *Final Repor t* * * DATE OF EXAM: Oct 23 2023 1:16PM [facility] 0730 - MRI PANC/JEANIE WO/W IVCON / PROCEDURE REASON: Pancreatic cyst * * * * Physician Interpretation * * * * MRI OF THE ABDOMEN WITHOUT AND WITH CONTRAST: CLINICAL HISTORY: Pancreatic cyst COMPARISON: MRI 07/23/2021. TECHNIQUE: The study was performed on a Siemens 3 T Skyra scanner using the torso phased array coil. HASTE images were obtained in the axial, sagittal and coronal planes. High resolution 3-D T2 weighted images were then obtained. Next, axial STIR, diffusion weighted and T1 weighted in- and wvm-em-qbykh images were obtained. Then, using a 3-D GRE T1 weighted sequence, dynamic images were obtained before, during and after the administration of intravenous contrast. 3-D images were post-processed on a dedicated off-line workstation and were reviewed by the interpreting physician. Contrast: IV: 20 ml of Dotarem Oral Contrast: None RESULT: Pancreas: The pancreas has normal precontrast signal, enhances normally. Small cystic lesions in the pancreas including a 0.8 cm cystic lesion in the tail (image 40, 3), unchanged. Another 0.7 cm cystic lesion in uncinate process (image 54, 3). No abnormal enhancement. The visualized portions of the pancreatic duct are normal. Biliary: There is no intrahepatic biliary dilation. The common bile duct is normal in course and caliber. No filling defects are identified within the common bile duct. The gallbladder is normal in appearance. Liver: The liver is normal in contour and enhances homogenously. There are no focal hepatic lesions. There is no thrombus in the portal venous system (splenic vein, main portal vein, left and right anterior and right posterior portal vein branches). Kidneys: The visualized portions of the kidneys enhance symmetrically. There is no hydroureteronephrosis. There is no focal enhancing renal lesion. Other abdominal findings: The spleen is normal in size. There are no focal splenic masses. The adrenals are normal. There are no abnormal fluid collections. There is no lymphadenopathy. There is no ascites. 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 Farm Management Adviser: PSCB Transcribe Date/Time: Oct 23 2023 2:35P Dictated by : AYANA ACEVEDO MD This examination was interpreted and the report reviewed and electronically signed by: AYANA ACEVEDO MD on Oct 23 2023 2:52PM EST [id number] Normal [facility] 25(OH)D3 [facility] 2023 25-hydroxyvitamin D3 [Mass/Vol] 43.4 ng/mL Normal 31.0-80.0 [facility] Comment on above: Order Comment: Speci men Type: BLOOD SPECIMENOrdering Facility: [facility] Address: [address] [place] [address] Performed By: #### 1 989-3 ####[facility] LABCLIA [id number] [address] OF [facility] CNOVon 10-13-2023 CNOV Office Visit (BONEMN ) JESUS WOLF ([id number]) 1955 F Date Time Provider Department 10/13/23 11:00 AM JULIA ANN During your visit today, we recorded the following information about you: Temperature Pulse Blood pressure Weight 98.2 degrees 90/minute 114/74 120.7 kg Height 1.689 m Julia Ann PA-C 10/13/2023 1:39 PM Signed Osteoporosis and Metabolic Bone Disease Date of Service: 10/13/2023 Patient: Jesus Wolf Medical Record: [id number] Primary Care Physician: Wojciech Treviño MD, DO Last Rheumatology visit: 04/10/2023 (with Nadege Hawkins) History of Present Illness Jesus Wolf is a 68 year old White female who presents on 10/13/2023 for an in-person visit for evaluation of Osteopenia. INTERVAL HISTORY Presents today for osteopenia follow up. No new fractures or falls. No planned dental procedures. Has been taking Fosamax since 04/2022 as instructed. Tolerating well with no concerns. Patient had a parathyroidectomy on 08/27/2022. Taking 500 mg of calcium daily. Taking vitamin D. She is currently in a walking boot for L foot due to severe OA. Clerk Cashier is trailing 6 weeks in the boot. If symptoms improve, four slide machine setter will prescribe a brace otherwise will discuss surgical options. Disease History Previous Visit History: HISTORY OF PRESENT ILLNESS Current Medications Hydroxychloroquine [...] exam in Sep 2020 and was normal Osteoporosis History No history of fractures Most [...] Daily Vitamin D: 2000 IU Current Multivitamin: Yes Dental: No planned dental procedures. Last appointment: [...] use (Comment: Daily steroid uses from about [id number]) Previous use No rheumatoid arthritis Secondary osteoporosis [...] DATE OF EXAM: Mar 13 2022 3:21PM Laurie 0804 - BD DXA - AXIAL SKELETON -NB / PROCEDURE REASON: Asymptomatic postmenopausal status * * * * Physician Interpretation * * * * EXAMINATION: DXA BONE DENSITOMETRY BD DXA - AXIAL SKELETON -NB CLINICAL HISTORY: DIAGNOSTIC Asymptomatic postmenopausal status . DXA Model: Networked Organisms (S/N: [id number]) SITE SCANNED: Lumbar Spine, Left Hip, AND Left forearm Date Scanned: 03/13/2022 3:21 PM RESULT: Lumbar spine (L1-L3): 1.248 g/cm2, T-score 0.7, Z-score 2.3 Lumbar spi (more content not included)... Normal [facility] Collagen crosslinked C-telop eptide [Mass/Vol]on 10-13-2023 C Telopeptide, Beta Cross Linked 182 pg/mL 171 - 970 pg/mL [facility] C TELOPEPTIDE, BETA CROSS LINKED 182 pg/mL Normal 171-970 [facility] Comment on above: Order Comment: Speci men Type: BLOOD SPECIMENOrdering Facility: [facility] Address: [address] [place] [address] Performed By: #### 4 1171-0 ####[facility] LABCLIA [id number] [address] Comprehensive metabolic 2000 panelon 10-13-2023 Albumin [Mass/Vol] 3.9 g/dL 3.9 - 4.9 g/dL [facility] ALP [Catalytic activity/Vol] 101 U/L 34 - 123 U/L [facility] ALT [Catalytic activity/Vol] 24 U/L 7 - 38 U/L [facility] Anion gap [Moles/Vol] 12 mmol/L 9 - 18 mmol/L [facility] AST [Catalytic activity/Vol] 25 U/L 13 - 35 U/L [facility] Bilirubin [Mass/Vol] 0.4 mg/dL 0.2 - 1 .3 mg/dL [facility] Calcium [Mass/Vol] 9.6 mg/dL 8.5 - 10. 2 mg/dL [facility] Chloride [Moles/Vol] 107 mmol/L High 97 - 10 5 mmol/L [facility] CO2 [Moles/Vol] 24 mmol/L 22 - 30 mmol/L [facility] Creatinine [Mass/Vol] 1.04 mg/dL High 0.58 - 0.96 mg/dL [facility] Estimated Glomerular Filtration Rate 59 mL/min/1.73m Low >=60 mL/min/1.73m [facility] Glucose [Mass/Vol] 101 mg/dL High 74 - 99 mg/dL [facility] Potassium [Moles/Vol] 4.6 mmol/L 3.7 - 5.1 mmol/L [facility] Protein [Mass/Vol] 6.2 g/dL Low 6.3 - 8.0 g/dL [facility] Sodium [Moles/Vol] 143 mmol/L 136 - 144 mmol/L [facility] Urea nitrogen [Mass/Vol] 29 mg/dL High 7 - 21 mg/dL [facility] Albumin [Mass/Vol] 3.9 g/dL Normal 3.9-4.9 [facility] Comment on above: Order Comment: Speci men Type: BLOOD SPECIMENOrdering Facility: [facility] Address: [address] [place] [address] Performed By: #### 2 4323-8 ####[facility] LABCLIA [id number] [place] [address] [place] ALP [Catalytic activity/Vol] 101 U/L Normal 34-123 [facility] Comment on above: Order Comment: Speci men Type: BLOOD SPECIMENOrdering Facility: [facility] Address: [address] [place] [address] Performed By: #### 2 4323-8 ####[facility] LABCLIA [id number] [place] [address] [place] ALT [Catalytic activity/Vol] 24 U/L Normal 7-38 [facility] Comment on above: Order Comment: Speci men Type: BLOOD SPECIMENOrdering Facility: [facility] Address: [address] [place] [address] Performed By: #### 2 4323-8 ####[facility] LABCLIA [id number] [place] [address] [place] Anion gap [Moles/Vol] 12 mmol/L Normal 9-18 [facility] Comment on above: Order Comment: Speci men Type: BLOOD SPECIMENOrdering Facility: [facility] Address: [address] [place] [address] Performed By: #### 2 4323-8 ####[facility] LABCLIA [id number] [place] [address] [place] AST [Catalytic activity/Vol] 25 U/L Normal 13-35 [facility] Comment on above: Order Comment: Speci men Type: BLOOD SPECIMENOrdering Facility: [facility] Address: [address] [place] [address] Performed By: #### 2 4323-8 ####[facility] LABCLIA [id number] [place] [address] [place] Bilirubin [Mass/Vol] 0.4 mg/dL Normal 0.2-1.3 [facility] Comment on above: Order Comment: Speci men Type: BLOOD SPECIMENOrdering Facility: [facility] Address: [address] [place] [address] Performed By: #### 2 4323-8 ####[facility] LABCLIA [id number] [place] [address] [place] Calcium [Mass/Vol] 9.6 mg/dL Normal 8.5-10.2 [facility] Comment on above: Order Comment: Speci men Type: BLOOD SPECIMENOrdering Facility: [facility] Address: [address] [place] [address] Performed By: #### 2 4323-8 ####[facility] LABCLIA [id number] [place] [address] [place] Chloride [Moles/Vol] 107 mmol/L High 97-105 [facility] Comment on above: Order Comment: Speci men Type: BLOOD SPECIMENOrdering Facility: [facility] Address: [address] [place] [address] Performed By: #### 2 4323-8 ####[facility] LABCLIA [id number] [place] [address] [place] CO2 [Moles/Vol] 24 mmol/L Normal 22-30 [facility] Comment on above: Order Comment: Speci men Type: BLOOD SPECIMENOrdering Facility: [facility] Address: [address] [place] [address] Performed By: #### 2 4323-8 ####[facility] LABCLIA [id number] [place] [address] [place] Creatinine [Mass/Vol] 1.04 mg/dL High 0.58-0.96 [facility] Comment on above: Order Comment: Morena barragan Type: BLOOD SPECIMENOrdering Facility: [facility] Address: [address] [place] [address] Performed By: #### 2 4323-8 ####[facility] LABIA [id number] [place] [address] [place] Creatinine and Glomerular filtration rate.predicted panel (S/P/Bld) 59 mL/min/1.73m??? Low >=60 [facility] Comment on above: Order Comment: Morena barragan Type: BLOOD SPECIMENOrdering Facility: [facility] Address: [address] [place] [address] Result Comment: Anna mated Glomerular Filtration Rate [...] accurately reflect actual GFR. Performed By: #### 2 4323-8 ####[facility] LABCLIA [id number] [place] [address] [place] Glucose [Mass/Vol] 101 mg/dL High 74-99 [facility] Comment on above: Order Comment: Morena barragan Type: BLOOD SPECIMENOrdering Facility: [facility] Address: [address] [place] [address] Result Comment: The [place] Diabetes Association (ADA) provides guidance for cutoff [...] Standards of Medical Care in Diabetes 2016, [place] [employer]. Diabetes Care. 2016.39(Suppl 1). Performed By: #### 2 4323-8 ####[facility] LABCLIA [id number] [address] [address] [place] Potassium [Moles/Vol] 4.6 mmol/L Normal 3.7-5.1 [facility] Comment on above: Order Comment: Speci men Type: BLOOD SPECIMENOrdering Facility: [facility] Address: [address] [place] [address] Performed By: #### 2 432-8 ####[facility] LABIA [id number] [place] [address] [place] Protein [Mass/Vol] 6.2 g/dL Low 6.3-8.0 [facility] Comment on above: Order Comment: Speci men Type: BLOOD SPECIMENOrdering Facility: [facility] Address: [address] [place] [id number] Performed By: #### 2 432-8 ####[facility] LABIA [id number] [place] [address] [place] Sodium [Moles/Vol] 143 mmol/L Normal 136-144 [facility] Comment on above: Order Comment: Speci men Type: BLOOD SPECIMENOrdering Facility: [facility] Address: [address] [place] [address] Performed By: #### 2 4323-8 ####[facility] LABCLIA [id number] [place] [address] [place] Urea nitrogen [Mass/Vol] 29 mg/dL High 7-21 [facility] Comment on above: Order Comment: Speci men Type: BLOOD SPECIMENOrdering Facility: [facility] Address: [address] [place] [id number] Performed By: #### 2 4323-8 ####[facility] LABVERONIQUE [id number] [place] [id number] [place] VITAMIN D 25 HYDROXYon 10-13 25-hydroxyvitamin D3 [Mass/Vol] 43.4 ng/mL 31.0 - 80.0 ng/mL [facility] CNOVon 10-09-2023 CNOV Office Visit (PODICR ) LUCIANOJESUS JACKSON ([id number]) 1955 F Date Time Provider Department 10/09/23 11:30 AM BEVERLY FRANCO PODICR During your visit today, we recorded the following information about you: Beverly Franco, KHADIJAH 10/09/2023 1:03 PM Signed SERVICE DATE: October 09, 2023 PCP: Wojciech Treviño MD, DO Subjective Patient ID: Jesus is a 68 year old female. Patient presents today for follow-up of bilateral foot pain stating that her left foot remains very painful on the bottom (indicating areas of 4-5 TMT) and also at the area across the foot on the medial side. She also complains of calluses that crack open on the side of her right big toe. Chief Complaint: Patient presents with: Callous: Bilateral foot PAIN EVALUATION 10/02/2023 1040 Pain Level: 8 Pain Location: Foot-Left Description: Aching;Burning;Sharp;S ore;Throbbing Duration Units: Days Frequency: Continuous Intervention/Comfort measure: Other: See comment Comments: Staying off of it HPI patient has tried power step inserts and states that they aggravate the left foot, she has tried a variety of different creams and ointments and lotions and moisturizers for the right foot which failed to provide any relief or improvement. Patient is anticoagulated with Eliquis. She has history of right first MTPJ arthrodesis Review of Systems ACTIVE PROBLEM LIST Edema [...] TUNNEL RIGHT WRIST surgical correction COLONOSCOPY 05/10/2019 [facility] COLONOSCOPY GEN ANES 07/23/2020 Dr. Reinoso/Diverticulosis/H emorrhoids/ Ulcerative Colitis/Rpt in 2 yrs. COLONOSCOPY SCREENING 03/2023 EGD EUS 01/11/2020 [facility] LASIK Right prior to 1999 [...] red spot in area of shot MEDICATIONS: flecainide (TAMBOCOR) 100 mg tablet Take 1 tablet by mouth every 12 hours. iv contrast (will be provided with radiology test) MRI PANC/JEANIE Inject, intravenously, once for 1 dose. No IV access, insert saline lock prior to the beginning of sedation, infusion, injection of imaging exam. Discontinue saline lock post exam. I (more content not included)... Normal [facility] 09-30-2023 CNPN Telephone ([id number]) JESUS WOLF ([id number]) 1955 F Date Time Provider Department 09/30/23 VIKTOR ARREDONDOChristiano [id number] During your visit today, we recorded the following information about you: Beba Liriano 09/30/2023 4:04 PM Signed Patient calling asking about imaging for pancreas. She was due 07/2023. 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 [...] protocol in the MR contrast administration guidelines link.Disp: 1 EachRfl: 0 Prescriptions as of 10/01/2023 - iv contrast (will be provided with [...] the MR contrast administration guidelines link. - alendronate (FOSAMAX) 70 mg tablet Take 1 tablet by mouth one time a week. In the morning with a full glass of water, on an empty stomach. Do not take anything else by mouth or lie down for the next 30 minutes. - Mesalamine (LIALDA) 1.2 gram EC tablet Take 4 tablets by mouth once daily. - pantoprazole DR (PROTONIX) 40 mg tablet take 1 tablet by mouth twice a day - amoxicillin (AMOXIL) 500 mg capsule Take 4 tablets one hour prior to dental procedure - colestipol (COLESTID) 1 gram tablet TAKE 2 TABLETS BY MOUTH TWICE A DAY - mesalamine (CANASA) 1,000 mg suppository 1 Suppository by RECTAL route daily at bedtime. - hydrOXYchloroQUINE (PLAQUENIL) 200 mg tablet take [...] 1 tablet by mouth once daily. - acetaminophen (TYLENOL) 500 mg tablet Take 1 tablet by mouth every 4 hours as needed for pain. - qmawqxp-jiyqbmjkc-wcos min D3 500 mg-5 mcg (200 unit) per tablet Take 1 tablet by mouth three times daily. - MV with Hzk-Xgrcfdah-Lhzzan (CENTRUM SILVER) 0.4 mg-300 mcg- 250 mcg [...] Take 10 mg by mouth daily at bedtime (more content not included)... Normal [facility] ECG 12 lead ECGon 09-21-2023 ECG 12 lead ECG [facility] [place] [address] Electrocardiograph Report Signed Patient: Jesus Wolf MR#: [id number] : 1955 Acct:[id number] Age/Sex: 68 / F ADM Date: 09/21/23 Loc: Room: Type: [facility] Attending Dr: Yuriy Conway MD Ordering Provider: Yuriy Conway MD, [facility] Date of Service: 09/21/23/ ECG/ECG 12 lead ECG: CV, Preprocedure Copies to: Test Reason : Blood Pressure : / mmHG Vent. Rate : 092 BPM Atrial Rate : 092 BPM P-R Int : 192 ms QRS Dur : 112 ms QT Int : 388 ms P-R-T Axes : 084 042 071 degrees QTc Int : 479 ms Normal sinus rhythm Normal ECG When compared with ECG of 07-FEB-2022 11:51, QRS duration has increased Confirmed by ALINE SOUZA MD ([id number]) on 09/22/2023 6:27:53 AM Referred By: Yuriy Conway Electronically Signed By:ALINE SOUZA MD Transcribed By: MUS Signed By Aline Souza MD 0 09/22/23 0627 Normal [facility] ECG 12 Leadon 09-17-2023 ECG reveals atrial flutter with variable AV conduction [facility] Work Phone: BRIEF OP NOTon 08-03-2023 BRIEF OP NOT HNO ID: [id number] Author: Dalila Cervantes DPM Service: Podiatry Author Type: Physician Type: Brief Op Note Filed: 08/03/2023 1:00 PM Note Text: BRIEF OPERATIVE / PROCEDURE NOTE LOG ID: [id number] SURGERY/PROCEDURE DATE: 08/03/2023 INCISION/PROCEDURE START TIME: 12:52 PM INCISION CLOSE/PROCEDURE END TIME: 12:58 PM SURGEON(S)/PROCEDURALI ST(S) AND MUSIC COMPOSER(S): Surgeon(s) and Role: * Dalila Cervantes DPM [...] SIGNATURE: Dalila Cervantes DPM PATIENT NAME: Jesus Wolf DATE: August 03, 2023 TIME: 12:59 PM Normal [facility] HISTORY PHYSICALon HISTORY PHYSICAL HNO ID: [id number] Author: Dalila Cervantes DPM Service: Podiatry Author [...] SIGNATURE: Angie See DPM PATIENT NAME: Jesus Moncadarett DATE: August 02, 2023 Normal [facility] HISTORY PHYSICAL HNO ID: [id number] Author: Fawn Billy APRN.JOHNATHAN Service: ? Author [...] next 30 minutes. 08/03/2023 Yes MV with Dyb-Uxggmyep-Hncjco (CENTRUM SILVER) 0.4 mg-300 mcg- 250 mcg [...] every 4 hours as needed for pain. oitulke-xnbrgmxpi-bwtu min D3 500 mg-5 mcg (200 unit) per [...] feet [M19.071, M19.072] Medication and Non-Pharmacologic VTE Prophylaxis/Anticoagul ants VTE Prophylaxis: N/A SIGNATURE: Fawn Billy APRN.CNP PATIENT NAME: Jesus Wolf DATE: August 03, 2023 TIME: 11:52 AM Normal [facility] OPERATIVE NOon 08-03-2023 OPERATIVE NO HNO ID: [id number] Author: Dalila Cervantes DPM Service: Podiatry Author Type: Physician Type: Operative Report Filed: 08/03/2023 1:28 PM Note Text: Dalila Cervantes DPM Physician Podiatry Operative Report Signed Date of Service: 08/03/2023 12:40 PM Case Time: Procedures: Surgeons: 08/03/2023 12:40 AM FLUOROSCOPIC GUIDANCE FOR NEEDLE PLACEMENT ARTHROCENTESIS,ASPIRAT ION AND/OR INJECTION,SMALL JOINT OR BURSA W/O US GUIDANCE Dalila Cervantes DPM Miggantz, Sydney, DPM 08/03/2023 12:40 PM FLUOROSCOPIC GUIDANCE FOR NEEDLE PLACEMENT ARTHROCENTESIS,ASPIRAT ION AND/OR INJECTION,SMALL JOINT OR BURSA W/O US GUIDANCE KHADIJAH Balbuena Sydney, DPM [facility] OPERATIVE REPORT NAME: JESUS [facility]OLF [facility] #: [id number] DATE: 08/03/2023 AGE: 68 SURGEON 1: Dalila Cervantes DPM SURGEON 2: MUSIC COMPOSER 1: Angie See DPM OPERATION: 1. Fluoroscopic guidance for needle placement, bilateral feet (CPT 99861). 2. Intra-articular local anesthetic cortisone injection, second through fourth tarsometatarsal joints of both feet (CPT 14460). ANESTHESIA: 4 CC of Local consisting of [...] COMPLICATIONS: None. CONDITION: Satisfactory. Dalila Cervantes DPM [facility] 07-20-2023 [place] Telephone (CANDACE) JESUS WOLF ([id number]) 1955 F Date Time Provider Department 07/20/23 DALILA CERVANTES During your visit today, we recorded the following information about you: Lisa Ramos 07/20/2023 2:59 PM Signed Spoke to patient and she is scheduled for bilateral cortisone injection at [facility] for 08/03/23 Allergies As of Date: 07/20/2023 [...] 4 hours as needed for pain. - besvprn-xfkbpiejb-pwxw min D3 500 mg-5 mcg (200 unit) per tablet Take 1 tablet by mouth three times daily. - MV with Vgu-Newzlrrb-Evufbi (CENTRUM SILVER) 0.4 mg-300 mcg- 250 mcg [...] and foot, (more content not included)... Normal [facility] ([id number]) 1955 F Date Time Provider Department 07/07/23 DALILA CERVANTES During your visit today, we recorded the following information about you: Olga Amado 07/07/2023 3:25 PM Signed [facility] requesting call back to schedule (surgery)with Dr. Cervantes. Left direct number to return call. [phone] Allergies As of Date: 07/07/2023 Noted Allergy [...] 4 hours as needed for pain. - aaotvof-aqzrgwwxc-gnwu min D3 500 mg-5 mcg (200 unit) per tablet Take 1 tablet by mouth three times daily. 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 Normal [facility] CNOVon 07-02-2023 CNOV Office Visit (PDAVON ) LUCIANOJESUS Rowley Ezio ([id number]) 1955 F Date Time Provider Department 07/02/23 10:15 AM BEVERLY FRANCO PDAVON During your visit today, we recorded the following information about you: Beverly Franco, KHADIJAH 07/02/2023 12:08 PM Signed SERVICE DATE: July 02, 2023 PCP: Wojciech Treviño MD, DO Subjective Patient ID: Jesus is a 68 year old female. Patient presents today with complaint of pain in her left midfoot on the medial side which started several weeks ago while she is in [place] at the [employer] [facility] and on her feet an extensive [...] TUNNEL RIGHT WRIST surgical correction COLONOSCOPY 05/10/2019 [facility] COLONOSCOPY GEN ANES 07/23/2020 Dr. Reinoso/Diverticulosis/H emorrhoids/ Ulcerative Colitis/Rpt in 2 yrs. COLONOSCOPY SCREENING 03/2023 EGD EUS 01/11/2020 [facility] LASIK Right prior to 1999 [...] by mouth (more content not included)... Normal [facility] XR FOOT 3V AP/LAT/OBL BILon 07-02-2023 XR [...] bilaterally, possibly neuropathic, progressed since prior exams. Farm Management Adviser: MILLER Transcribe Date/Time: Jul 02 2023 11:42A Dictated by : JOSÉ MIGUEL BRITO MD This examination was interpreted and the report reviewed and electronically signed by: CHIKIS GARCIA MD on Jul 02 2023 12:38PM EST [id number] Normal [facility] CNPN Telephone (ORQ) JESUS WOLF ([id number]) 1955 F Date Time Provider Department 06/10/23 HORACE HARRELL ORQ During your visit today, we recorded the following information about you: Agatha Wing Jayna 06/10/2023 11:16 AM Signed Patient needs to have a dental procedure and needs an antibiotic. Patient states you are the last orthopedic surgeon she seen. Please send prescription to the [facility] in [facility]. patient would like to be [...] 4 hours as needed for pain. - vbxzevr-torfvozpi-aftq min D3 500 mg-5 mcg (200 unit) per tablet Take 1 tablet by mouth three times daily. - MV with Hqy-Iwnybcpn-Lrkvfy (CENTRUM SILVER) 0.4 mg-300 mcg- 250 mcg [...] [G47.30] 12 (more content not included)... Normal [facility] CNOVon 05-21-2023 CNOV Office Visit (PDAVON ) JESUS WOLF ([id number]) 1955 F Date Time Provider Department 05/21/23 [...] TUNNEL RIGHT WRIST surgical correction COLONOSCOPY 05/10/2019 [facility] COLONOSCOPY GEN ANES 07/23/2020 Dr. Reinoso/Diverticulosis/H emorrhoids/ Ulcerative Colitis/Rpt in 2 yrs. COLONOSCOPY SCREENING 03/2023 EGD EUS 01/11/2020 [facility] LASIK Right prior to 1999 MRI PANC/JEANIE WO/W IVCON 12/20/2019 OVARIAN CYSTECTOMY PAST SURGICAL HISTORY OF 07/2013 bilateral foot procedure, [place] PAST SURGICAL HISTORY OF 2018,2019 Ablation X2 [...] mg tab(s)Garrett (more content not included)... Normal [facility] C3 SerPl-ncon 04-22-2023 Complement C3 [Mass/Vol] 165 mg/dL Normal 86-166 [facility] Comment on above: Order Comment: Speci men Type: BLOOD SPECIMENOrdering Facility: [facility] Address: [address] [place] [address] Performed By: #### 2 4331-1 ####[facility] LABCLIA [id number] [address] LABCLIA [id number] [place] [address]#### 4498-2, 4485-9 ####[facility] LABCLIA [id number] [address] OF [facility] C4 SerPl-ncon 04-22-2023 Complement C4 [Mass/Vol] 38 mg/dL Normal 13-46 [facility] Comment on above: Order Comment: Speci men Type: BLOOD SPECIMENOrdering Facility: [facility] Address: [address] [place] [address] Performed By: #### 2 4331-1 ####[facility] LABCLIA [id number] [address] LABCLIA [id number] [place] [address]#### 4498-2, 4485-9 ####[facility] LABCLIA [id number] [facility] [id number] STATES OF [facility] CBC W Auto Differential pane l (Bld)on 04-22-2023 Basophils (Bld) [#/Vol] 0.04 10*3/uL Normal <0.11 [facility] Comment on above: Order Comment: Speci men Type: BLOOD SPECIMENOrdering Facility: [facility] Address: [address] [address] Performed By: #### 5 7021-8 ####[facility] LABIA [id number] [place] [address] Basophils/100 WBC (Bld) 0.6 % Normal [facility] Comment on above: Order Comment: Speci men Type: BLOOD SPECIMENOrdering Facility: [facility] Address: [address] [place] [address] Performed By: #### 5 7021-8 ####[facility] LABIA [id number] [place] [address] Differential cell count method Nom (Bld) Auto Normal [facility] Comment on above: Order Comment: Speci men Type: BLOOD SPECIMENOrdering Facility: [facility] Address: [address] [address] Performed By: #### 5 7021-8 ####[facility] LABIA [id number] [place] [address] Eosinophils (Bld) [#/Vol] 0.19 10*3/uL Normal <0.46 [facility] Comment on above: Order Comment: Speci men Type: BLOOD SPECIMENOrdering Facility: [facility] Address: [address] [place] [address] Performed By: #### 5 7021-8 ####[facility] LABCLIA [id number] [place] [address] Eosinophils/100 WBC (Bld) 2.9 % Normal [facility] Comment on above: Order Comment: Speci men Type: BLOOD SPECIMENOrdering Facility: [facility] Address: [address] [place] [address] Performed By: #### 5 7021-8 ####[facility] LABCLIA [id number] [place] [address] Erythrocyte distribution width (RBC) [Ratio] 13.1 % Normal 11.5-15.0 [facility] Comment on above: Order Comment: Speci men Type: BLOOD SPECIMENOrdering Facility: [facility] Address: [address] [place] [address] Performed By: #### 5 7021-8 ####[facility] LABCLIA [id number] [place] [address] Hematocrit (Bld) [Volume fraction] 37.0 % Normal 36.0-46.0 [facility] Comment on above: Order Comment: Speci men Type: BLOOD SPECIMENOrdering Facility: [facility] Address: [address] [place] [address] Performed By: #### 5 7021-8 ####[facility] LABCLIA [id number] [place] [address] Hemoglobin (Bld) [Mass/Vol] 12.3 g/dL Normal 11.5-15.5 [facility] Comment on above: Order Comment: Speci men Type: BLOOD SPECIMENOrdering Facility: [facility] Address: [address] [place] [address] Performed By: #### 5 7021-8 ####[facility] LABCLIA [id number] [place] [address] Immature granulocytes (Bld) [#/Vol] 10*3/uL Normal <0.10 [facility] Comment on above: Order Comment: Speci men Type: BLOOD SPECIMENOrdering Facility: [facility] Address: [address] [address] Performed By: #### 5 7021-8 ####[facility] LABCLIA [id number] [place] [address] Immature granulocytes/100 WBC (Bld) 0.3 % Normal [facility] Comment on above: Order Comment: Speci men Type: BLOOD SPECIMENOrdering Facility: [facility] Address: [address] [place] [address] Performed By: #### 5 7021-8 ####[facility] LABCLIA [id number] [place] [address] Lymphocytes (Bld) [#/Vol] 1.28 10*3/uL Normal 1.00-4.00 [facility] Comment on above: Order Comment: Speci men Type: BLOOD SPECIMENOrdering Facility: [facility] Address: [address] [place] [address] Performed By: #### 5 7021-8 ####[facility] LABCLIA [id number] [place] [address] Lymphocytes/100 WBC (Bld) 19.8 % Normal [facility] Comment on above: Order Comment: Speci men Type: BLOOD SPECIMENOrdering Facility: [facility] Address: [address] [place] [address] Performed By: #### 5 7021-8 ####[facility] LABCLIA [id number] [place] [address] MCH (RBC) [Entitic mass] 31.5 pg Normal 26.0-34.0 [facility] Comment on above: Order Comment: Speci men Type: BLOOD SPECIMENOrdering Facility: [facility] Address: [address] [place] [address] Performed By: #### 5 7021-8 ####[facility] LABCLIA [id number] [place] [address] MCHC (RBC) [Mass/Vol] 33.2 g/dL Normal 30.5-36.0 [facility] Comment on above: Order Comment: Speci men Type: BLOOD SPECIMENOrdering Facility: [facility] Address: [address] [place] [address] Performed By: #### 5 7021-8 ####[facility] LABCLIA [id number] [place] [address] MCV (RBC) [Entitic vol] 94.9 fL Normal 80.0-100.0 [facility] Comment on above: Order Comment: Speci men Type: BLOOD SPECIMENOrdering Facility: [facility] Address: [address] [place] [address] Performed By: #### 5 7021-8 ####[facility] LABCLIA [id number] [place] [address] Monocytes (Bld) [#/Vol] 0.63 10*3/uL Normal <0.87 [facility] Comment on above: Order Comment: Speci men Type: BLOOD SPECIMENOrdering Facility: [facility] Address: [address] [place] [address] Performed By: #### 5 7021-8 ####[facility] LABCLIA [id number] [place] [address] Monocytes/100 WBC (Bld) 9.7 % Normal [facility] Comment on above: Order Comment: Speci men Type: BLOOD SPECIMENOrdering Facility: [facility] Address: [address] [place] [address] Performed By: #### 5 7021-8 ####[facility] LABCLIA [id number] [place] [address] Neutrophils (Bld) [#/Vol] 4.31 10*3/uL Normal 1.45-7.50 [facility] Comment on above: Order Comment: Speci men Type: BLOOD SPECIMENOrdering Facility: [facility] Address: [address] [place] [address] Performed By: #### 5 7021-8 ####[facility] LABCLIA [id number] [place] [address] Neutrophils/100 WBC (Bld) 66.7 % Normal [facility] Comment on above: Order Comment: Speci men Type: BLOOD SPECIMENOrdering Facility: [facility] Address: [address] [place] [address] Performed By: #### 5 7021-8 ####[facility] LABCLIA [id number] [place] [address] Nucleated RBC (Bld) [#/Vol] 10*3/uL Normal <0.01 [facility] Comment on above: Order Comment: Speci men Type: BLOOD SPECIMENOrdering Facility: [facility] Address: [address] [place] [address] Performed By: #### 5 7021-8 ####[facility] LABCLIA [id number] [place] [address] Nucleated RBC/100 WBC (Bld) [Ratio] 0.0 /100 WBC Normal [facility] Comment on above: Order Comment: Speci men Type: BLOOD SPECIMENOrdering Facility: [facility] Address: [address] [place] [address] Performed By: #### 5 7021-8 ####[facility] LABCLIA [id number] [place] [address] Platelet mean volume (Bld) [Entitic vol] 9.5 fL Normal 9.0-12.7 [facility] Comment on above: Order Comment: Speci men Type: BLOOD SPECIMENOrdering Facility: [facility] Address: [address] [place], [place] [address] Performed By: #### 5 7021-8 ####[facility] LABCLIA [id number] [place] [address] Platelets (Bld) [#/Vol] 248 10*3/uL Normal 150-400 [facility] Comment on above: Order Comment: Speci men Type: BLOOD SPECIMENOrdering Facility: [facility] Address: [address] [place] [address] Performed By: #### 5 7021-8 ####[facility] LABIA [id number] [place] [address] RBC (Bld) [#/Vol] 3.90 10*6/uL Normal 3.90-5.[address] [facility] Comment on above: Order Comment: Speci men Type: BLOOD SPECIMENOrdering Facility: [facility] Address: [address] [place] [address] Performed By: #### 5 7021-8 ####[facility] LABIA [id number] [place] [address] WBC (Bld) [#/Vol] 6.47 10*3/uL Normal 3.70-11.[address] [facility] Comment on above: Order Comment: Speci men Type: BLOOD SPECIMENOrdering Facility: [facility] Address: [address] [place] [address] Performed By: #### 5 7021-8 ####[facility] LABIA [id number] [place] [address] Comprehensive metabolic 2000 panelon 04-22-2023 Albumin [Mass/Vol] 4.2 g/dL Normal 3.9-4.9 [facility] Comment on above: Order Comment: Speci men Type: BLOOD SPECIMENOrdering Facility: [facility] Address: [address] [place] [address] Performed By: #### 1 9123-9, 10167-4 ####[facility] LABIA [id number] [place] [address] ALP [Catalytic activity/Vol] 113 U/L Normal 34-123 [facility] Comment on above: Order Comment: Speci men Type: BLOOD SPECIMENOrdering Facility: [facility] Address: [address] [place] [address] Performed By: #### 1 9123-9, 71667-3 ####[facility] LABCLIA [id number] [place] [address] ALT [Catalytic activity/Vol] 22 U/L Normal 7-38 [facility] Comment on above: Order Comment: Speci men Type: BLOOD SPECIMENOrdering Facility: [facility] Address: [address] [place] [address] Performed By: #### 1 9123-9, 59988-7 ####[facility] LABCLIA [id number] [place] [address] Anion gap [Moles/Vol] 10 mmol/L Normal 9-18 [facility] Comment on above: Order Comment: Speci men Type: BLOOD SPECIMENOrdering Facility: [facility] Address: [address] [place] [address] Performed By: #### 1 91239, 81485-4 ####[facility] LABCLIA [id number] [place] [address] AST [Catalytic activity/Vol] 23 U/L Normal 13-35 [facility] Comment on above: Order Comment: Speci men Type: BLOOD SPECIMENOrdering Facility: [facility] Address: [address] [place] [address] Performed By: #### 1 91239, 13386-1 ####[facility] LABCLIA [id number] [place] [address] Bilirubin [Mass/Vol] 0.5 mg/dL Normal 0.2-1.3 [facility] Comment on above: Order Comment: Speci men Type: BLOOD SPECIMENOrdering Facility: [facility] Address: [address] [place] [address] Performed By: #### 1 9123-9, 66517-9 ####[facility] LABCLIA [id number] [place] [address] Calcium [Mass/Vol] 9.2 mg/dL Normal 8.5-10.2 [facility] Comment on above: Order Comment: Speci men Type: BLOOD SPECIMENOrdering Facility: [facility] Address: [address] [place] [address] Performed By: #### 1 9123-9, ####[facility] LABCLIA [id number] [place] [address] Chloride [Moles/Vol] 110 mmol/L High 97-105 [facility] Comment on above: Order Comment: Speci men Type: BLOOD SPECIMENOrdering Facility: [facility] Address: [address] [place] [address] Performed By: #### 1 9123-9, ####[facility] LABCLIA [id number] [place] [address] CO2 [Moles/Vol] 22 mmol/L Normal 22-30 [facility] Comment on above: Order Comment: Speci men Type: BLOOD SPECIMENOrdering Facility: [facility] Address: [address] [place] [address] Performed By: #### 1 239, ####[facility] LABCLIA [id number] [place] [address] Creatinine [Mass/Vol] 1.24 mg/dL High 0.58-0.96 [facility] Comment on above: Order Comment: Speci men Type: BLOOD SPECIMENOrdering Facility: [facility] Address: [address] [place] [address] Performed By: #### 1 9123-9, 28168-5 ####[facility] LABCLIA [id number] [place] [address] Creatinine and Glomerular filtration rate.predicted panel (S/P/Bld) 48 mL/min/1.73m??? Low >=60 [facility] Comment on above: Order Comment: Speci men Type: BLOOD SPECIMENOrdering Facility: [facility] Address: [address] [place] [address] Result Comment: Anna mated Glomerular Filtration Rate [...] accurately reflect actual GFR. Performed By: #### 1 9123-9, 55978-6 ####[facility] LABCLIA [id number] [place] [address] Glucose [Mass/Vol] 98 mg/dL Normal 74-99 [facility] Comment on above: Order Comment: Speci men Type: BLOOD SPECIMENOrdering Facility: [facility] Address: [address] [place] [address] Result Comment: The [place] [employer] Association (ADA) provides guidance for cutoff [...] Standards of Medical Care in Diabetes 2016, [place] [employer]. Diabetes Care. 2016.39(Suppl 1). Performed By: #### 1 9123-9, ####[facility] LABCLIA [id number] [place] [address] Potassium [Moles/Vol] 5.3 mmol/L High 3.7-5.1 [facility] Comment on above: Order Comment: Speci men Type: BLOOD SPECIMENOrdering Facility: [facility] Address: [address] [id number] Performed By: #### 1 9123-9, ####[facility] LABCLIA [id number] [place] [address] Protein [Mass/Vol] 6.3 g/dL Normal 6.3-8.0 [facility] Comment on above: Order Comment: Speci men Type: BLOOD SPECIMENOrdering Facility: [facility] Address: [address] [address] Performed By: #### 1 9123-9, 02427-0 ####[facility] LABCLIA [id number] [place] [address] Sodium [Moles/Vol] 142 mmol/L Normal 136-144 [facility] Comment on above: Order Comment: Speci men Type: BLOOD SPECIMENOrdering Facility: [facility] Address: [address] [place] [address] Performed By: #### 1 239, ####[facility] LABCLIA [id number] [place] [address] Urea nitrogen [Mass/Vol] 28 mg/dL High 7-21 [facility] Comment on above: Order Comment: Speci men Type: BLOOD SPECIMENOrdering Facility: [facility] Address: [address] [place] [address] Performed By: #### 1 239, ####[facility] LABCLIA [id number] [place] [address] DNA ANTIBODY DS BLDon 2022 DNA ANTIBODY <12 Normal <30 [facility] Comment on above: Order Comment: Speci men Type: BLOOD SPECIMENOrdering Facility: [facility] Address: [address] [place] [address] Result Comment: Nega tive for ds DNA Antibodies. <30 IU/mL Negative 30-74 IU/mL Equivocal >74 IU/mL Positive Performed By: #### D NAAB ####[facility] LABCLIA [id number] [place] [address] [place] Lipid 1996 panelon 3 Cholesterol [Mass/Vol] 106 mg/dL Normal <200 [facility] Comment on above: Order Comment: Speci men Type: BLOOD SPECIMENOrdering Facility: External Submitter Address: , , Result Comment: <200 mg/dL, Desirable 200-239 mg/dL, Borderline high >239 mg/dL, High Performed By: #### 2 4331-1 ####[facility] LABCLIA [id number] [address] LABCLIA [id number] [place] [address]#### 4498-2, 7737-9 ####[facility] LABCLIA [id number] [address] [place] Cholesterol in HDL [Mass/Vol] 42 mg/dL Normal >39 [facility] Comment on above: Order Comment: Speci men Type: BLOOD SPECIMENOrdering Facility: External Submitter Address: , , Result Comment: 40-5 9 mg/dL, Acceptable >59 mg/dL, High: Negative risk factor for coronary heart disease <40 mg/dL, Low: Positive risk factor for coronary heart disease Performed By: #### 2 4331-1 ####[facility] LABCLIA [id number] [address] LABCLIA [id number] [place] [address]#### 4498-2, 7255-9 ####[facility] LABCLIA [id number] [address] [place] Cholesterol in LDL [Mass/Vol] 41 mg/dL Normal <100 [facility] Comment on above: Order Comment: Speci men Type: BLOOD SPECIMENOrdering Facility: External Submitter Address: , , Result Comment: <100 mg/dL, Optimal 100-129 mg/dL, Near optimal/above optimal 130-159 mg/dL, Borderline high 160-189 mg/dL, High >189 mg/dL, Very high Secondary prevention optimal LDL Cholesterol levels are recommended to be < 70 mg/dL Performed By: #### 2 4331-1 ####[facility] LABCLIA [id number] [address] [address] [facility] LABCLIA [id number] [place] [address]#### 4498-2, 448-9 ####[facility] LABCLIA [id number] [place] [address] [place] Cholesterol in LDL/Cholesterol in HDL [Mass ratio] 0.98 {ratio} Normal <2.54 [facility] Comment on above: Order Comment: Speci men Type: BLOOD SPECIMENOrdering Facility: External Submitter Address: , , Result Comment: Hadley pablo: 1. National Cholesterol Education Program ATP III Guideline At-A-Glance Quick Desk Reference: National Heart, Lung, and Blood [place]. National Institutes of Health. 2001: NIH Publication No. 01-3305. 2. An International Atherosclerosis Society position paper: global recommendations for the management of dyslipidemia: executive summary, Atherosclerosis. 2014: 232(2):410-413. Performed By: #### 2 4331-1 ####[facility] LABCLIA [id number] [address] LABCLIA [id number] [place] [address]#### 4498-2, 448-9 ####[facility] LABCLIA [id number] [address] [address] [place] Cholesterol in VLDL [Mass/Vol] 23 mg/dL Normal <30 [facility] Comment on above: Order Comment: Speci men Type: BLOOD SPECIMENOrdering Facility: External Submitter Address: , , Performed By: #### 2 4331-1 ####[facility] LABCLIA [id number] [address] [address] [facility] LABCLIA [id number] [place] [address]#### 4498-2, 5069 ####[facility] LABCLIA [id number] [address] [address] [place] Cholesterol non HDL [Mass/Vol] 64 mg/dL Normal <130 [facility] Comment on above: Order Comment: Speci men Type: BLOOD SPECIMENOrdering Facility: External Submitter Address: , , Result Comment: <130 mg/dL, Optimal 130-159 mg/dL, Near optimal/above optimal 160-189 mg/dL, Borderline high 190-219 mg/dL, High >219 mg/dL, Very high Secondary prevention optimal non HDL Cholesterol levels are recommended to be <100 mg/dL Performed By: #### 2 4331-1 ####[facility] LABCLIA [id number] [place] [address] [facility] LABCLIA [id number] [place] [address]#### 4498-2, 23512-23 ####[facility] LABCLIA [id number] [place] [address] [place] Cholesterol.total/Shell sterol in HDL [Mass ratio] 2.52 {ratio} Normal <5.10 [facility] Comment on above: Order Comment: Speci men Type: BLOOD SPECIMENOrdering Facility: External Submitter Address: , , Performed By: #### 2 4331-1 ####[facility] LABCLIA [id number] [address] [address] [facility] LABCLIA [id number] [place] [address]#### 4498-2, 558-9 ####[facility] LABCLIA [id number] [place] [address] [place] FASTING TIME 12 hrs Normal [facility] Comment on above: Order Comment: Speci men Type: BLOOD SPECIMENOrdering Facility: External Submitter Address: , , Performed By: #### 2 4331-1 ####[facility] LABCLIA [id number] [address] LABCLIA [id number] [place] [address]#### 4498-2, 4485-9 ####[facility] LABIA [id number] [place] [address] [place] Triglyceride [Mass/Vol] 116 mg/dL Normal <150 [facility] Comment on above: Order Comment: Speci men Type: BLOOD SPECIMENOrdering Facility: External Submitter Address: , , Result Comment: <150 mg/dL, Normal 150-199 mg/dL, Borderline high 200-499 mg/dL, High >499 mg/dL, Very high Performed By: #### 2 4331-1 ####[facility] LABCLIA [id number] [address] LABCLIA [id number] [place] [address]#### 4498-2, 4485-9 ####[facility] LABCLIA [id number] [place] [address] [place] Magnesium SerPl-mCncon 04-22 Magnesium [Mass/Vol] 1.8 mg/dL Normal 1.7-2.3 [facility] Comment on above: Order Comment: Speci men Type: BLOOD SPECIMENOrdering Facility: External Submitter Address: , , Performed By: #### 1 9123-9, 73015-6 ####[facility] LABCLIA [id number] [place] [address] Prot/Creat Uron 04-22-2023 Protein/Creatinine (U) [Mass ratio] 0.19 mg/mg High <0.15 [facility] Comment on above: Order Comment: Speci men Type: URINE SPECIMENOrdering Facility: [facility] Address: [address] [place] [address] Result Comment: Adul t Proteinuria Categories: <0.15 mg/mg is considered normal to mildly increased 0.15 - 0.50 mg/mg is considered moderately increased >0.50 mg/mg is considered severely increased KDIGO. (2013). KDIGO 2012 Clinical Practice Guideline for the Evaluation and Management of Chronic Kidney Disease. Official Journal of the International Society of Nephrology, 3(1), 1-150. Performed By: #### 2 890-2 ####[facility] LABCLIA [id number] [place] [address] [place] Protein/Creatinine (U) [Mass ratio]on 04-22-2023 Creatinine (U) [Mass/Vol] 48.0 mg/dL Normal 20.0-300.0 [facility] Comment on above: Order Comment: Speci men Type: URINE SPECIMENOrdering Facility: [facility] Address: [address] [place] [address] Performed By: #### 2 890-2 ####[facility] LABIA [id number] [place] [address] [place] Protein (U) [Mass/Vol] 9 mg/dL Normal 0-20 [facility] Comment on above: Order Comment: Speci men Type: URINE SPECIMENOrdering Facility: [facility] Address: [address] [place] [address] Performed By: #### 2 890-2 ####[facility] LABIA [id number] [place] [address] [place] Urinalysis complete panel (U )on 04-22-2023 Bilirubin Ql (U) Negative Normal Negative [facility] Comment on above: Order Comment: Speci men Type: URINE SPECIMENOrdering Facility: [facility] Address: [address] Performed By: #### 2 4356-8 ####[facility] LABCLIA [id number] [place] [address] [place] Clarity (Unsp spec) Clear Normal Clear [facility] Comment on above: Order Comment: Speci men Type: URINE SPECIMENOrdering Facility: [facility] Address: [address] Performed By: #### 2 4356-8 ####[facility] LABCLIA [id number] [address] STATES OF [facility] Color (U) Light Yellow Normal Yellow [facility] Comment on above: Order Comment: Speci men Type: URINE SPECIMENOrdering Facility: [facility] Address: [address] Performed By: #### 2 4356-8 ####[facility] LABCLIA [id number] [place] [address] [place] [facility] Glucose Test strip (U) [Mass/Vol] Negative Normal Trace, Negative [facility] Comment on above: Order Comment: Speci men Type: URINE SPECIMENOrdering Facility: [facility] Address: [address] Performed By: #### 2 4356-8 ####[facility] LABCLIA [id number] [place] [address] [place] Hemoglobin Ql (U) Negative Normal Negative, Trace [facility] Comment on above: Order Comment: Speci men Type: URINE SPECIMENOrdering Facility: [facility] Address: [address] Performed By: #### 2 4356-8 ####[facility] LABCLIA [id number] [place] [address] [place] Ketones Ql (U) Negative Normal Trace, Negative [facility] Comment on above: Order Comment: Speci men Type: URINE SPECIMENOrdering Facility: [facility] Address: [address] [place], [place] [address] Performed By: #### 2 4356-8 ####[facility] LABCLIA [id number] [place] [address] [place] Leukocyte esterase Test strip Ql (U) 25 Bailey/uL Normal Negative, 25 Bailey/uL [facility] Comment on above: Order Comment: Speci men Type: URINE SPECIMENOrdering Facility: [facility] Address: [address] [place], [place] [address] Performed By: #### 2 4356-8 ####[facility] LABCLIA [id number] [place] [address] [place] Nitrite Ql (U) Negative Normal Negative [facility] Comment on above: Order Comment: Speci men Type: URINE SPECIMENOrdering Facility: [facility] Address: [address] [place], [place] [address] Performed By: #### 2 4356-8 ####[facility] LABCLIA [id number] [place] [address] [place] pH (U) 6.0 [pH] Normal 5.0-8.0 [facility] Comment on above: Order Comment: Speci men Type: URINE SPECIMENOrdering Facility: [facility] Address: [address] [place], [place] [address] Performed By: #### 2 4356-8 ####[facility] LABCLIA [id number] [place] [address] [place] Protein (U) [Mass/Vol] Negative Normal Trace , Negative [facility] Comment on above: Order Comment: Speci men Type: URINE SPECIMENOrdering Facility: [facility] Address: [address] [place], [place] [address] Performed By: #### 2 4356-8 ####[facility] LABIA [id number] [place] [address] [place] RBC LM.HPF (Urine sed) [#/Area] 0-3 /HPF Normal 0-3 /HPF [facility] Comment on above: Order Comment: Speci men Type: URINE SPECIMENOrdering Facility: [facility] Address: [address] [place] [address] Performed By: #### 2 4356-8 ####[facility] LABIA [id number] [place] [address] [place] Specific gravity (U) [Rel density] 1.012 Normal 1.005-1.030 [facility] Comment on above: Order Comment: Speci men Type: URINE SPECIMENOrdering Facility: [facility] Address: [address] [place] [address] Performed By: #### 2 4356-8 ####[facility] LABIA [id number] [address] STATES [facility] Urobilinogen Ql (U) Negative Normal Negative [facility] Comment on above: Order Comment: Speci men Type: URINE SPECIMENOrdering Facility: [facility] Address: [address] [place], [place] [address] Performed By: #### 2 4356-8 ####[facility] LABIA [id number] [place] [address] [place] WBC LM.HPF (Urine sed) [#/Area] 0-5 /HPF Normal 0-5 /HPF [facility] Comment on above: Order Comment: Speci men Type: URINE SPECIMENOrdering Facility: [facility] Address: [address] [place], [place] [address] Performed By: #### 2 4356-8 ####[facility] LABIA [id number] [address] [place] CNOVon 04-15-2023 CNOV Office Visit (EDWIN ) JESUS WOLF ([id number]) 1955 F Date Time Provider Department 04/15/23 9:20 AM DIONE REINOSO During your visit today, we recorded the following information about you: Pulse Blood pressure Weight 70/minute 142/85 115.2 kg Dione Reinoos MD 04/15/2023 9:13 AM Signed Continue mesalamine [...] with migraine headaches. She was in the [facility] on vacation. It is likely these [...] INTERP N (more content not included)... Normal [facility] HISTORY PHYSICALon 3 HISTORY PHYSICAL HNO ID: [id number] Author: Dione Reinoso MD Service: ? Author Type: Physician Type: HANDP Filed: 04/15/2023 10:14 AM Note Text: FOLLOW UP OFFICE VISIT REASON FOR VISIT: follow up UC HPI: Jesus Wolf is a 68 year old female who presents for follow up UC. After colonoscopy 2 weeks ago, she was in the ER several times with migraine headaches. She was in the [facility] on vacation. It is likely these [...] a component of bile acid diarrhea. Dr. Arredonod has been following her IPMN and is [...] for Giard (more content not included)... Normal [facility] CNPNon 04-08-2023 CNPN Telephone (EDWIN) JESUS WOLF ([id number]) 1955 F Date Time Provider Department 04/08/23 [...] 4 hours as needed for pain. - whfrjus-izmrgneau-sudo min D3 500 mg-5 mcg (200 unit) per tablet Take 1 tablet by mouth three times daily. - MV with Slz-Vtrxhrym-Laglcu (CENTRUM SILVER) 0.4 mg-300 mcg- 250 mcg [...] sodium chlori (more content not included)... Normal [facility] ANES POSTPROC EVALon 023 ANES POSTPROC EVAL HNO ID: [id number] Author: Alex Hermosillo MD Service: Anesthesiology Author Type: Physician Type: Anesthesia Postprocedure Evaluation Filed: 04/02/2023 8:21 AM Note Text: POST ANESTHESIA EVALUATION NOTE : 1955 Procedure Summary Date: 04/02/23 Room / Location: Ambulatory Surgery Anesthesia Start: 739 Anesthesia Stop: 808 Procedure: COLONOSCOPY DIAGNOSTIC Diagnosis: IBD (inflammatory bowel disease) (Clostridium diff diarrhea) Scheduled Providers: Dione Reinsoo MD; Jerri Martinez APRN.ECONOMIC DEVELOPMENT DIRECTOR; Alex Hermosillo MD Responsible Provider: Alex Hermosillo MD Anesthesia Type: MAC ASA Status: [...] of care. Anesthesia Observations No Documentation SIGNATURE: Alex Hermosillo MD PATIENT NAME: Jesus Wolf DATE: April 02, 2023 TIME: 8:21 AM CSN: [id number] Normal [facility] ANES PRE-OPon 04-02-2023 ANES PRE-OP HNO ID: [id number] Author: Alex Hermosillo MD Service: Anesthesiology Author Type: Physician Type: Anesthesia Preprocedure Evaluation Filed: 04/02/2023 7:18 AM Note Text: ANESTHESIOLOGY DAY OF SURGERY NOTE : 1955 Procedure Information Date/Time: 04/02/23 0730 Scheduled providers: Dione Reinoso MD; Jerri Martinez APRN.ECONOMIC DEVELOPMENT DIRECTOR; Alex Hermosillo MD Procedure: COLONOSCOPY DIAGNOSTIC Location: Ambulatory [...] a current smoker. NPO Status: adequate Beta Zaida Monitoring Plan Monitoring plan: standard ASA. Post Procedure Analgesic Plan Postoperative analgesic plan: multimodal analgesia. Informed Consent Anesthetic risks, benefits, alternatives, personnel and consent discussed: yes. Patient / Responsible Libertarian agrees to proceed: yes Patient / Surrogate [...] 4 hours as needed for pain. - afpbaze-xrtgcpznw-pnpd min D3 500 mg-5 mcg (200 unit) per tablet Take 1 tablet by mouth three times daily. - MV with Biu-Sfeluael-Rszdhz (CENTRUM SILVER) 0.4 mg-300 mcg- 250 mcg [...] - sodi (more content not included)... Normal [facility] COLONOSCOPY DIAGNOSTICon [facility] Colonoscopyon 04-02-2023 Colonoscopy [facility] Gastrointestinal Endoscopy Patient Name: Jesus Wolf Procedure [...] procedure by the physician, the nurse, the clothes separator and the termite control technician. The procedure was verified in the [...] for review. Procedure Code(s): --- Professional --- 21457, Colonoscopy, flexible; with biopsy, single or multiple Diagnosis Code(s): --- Professional --- K64.8, Other hemorrhoids K51.90, Ulcerative colitis, unspecified, without complications A04.72, Enterocolitis due to Clostridium difficile, not specified as recurrent K57.30, Diverticulosis of large intestine without perforation or abscess without bleeding CPT copyright 2020 [employer]. All rights reserved. The codes documented in this report are preliminary and upon hammer heater review may be revised to meet current compliance requirements. Attending Participation: I personally performed the entire procedure. Scope In: 7:48:57 AM Scope Out: 8:05:07 AM MD Dione Orozco MD 04/02/2023 8:11:27 AM This report has been signed electronically by Dione Reinoso MD Number of Addenda: 0 Note Initiated On: 04/02/2023 7:24 AM Estimated Blood Loss: Estimated blood loss was minimal. Normal [facility] HISTORY PHYSICALon HISTORY PHYSICAL HNO ID: [id number] Author: Dione Reinoso MD Service: Gastroenterology Author [...] April 02, 2023 TIME: 7:38 AM Normal [facility] SURGICAL PATHOLOGYon 023 CASE REPORT Normal [facility] Comment on above: Order Comment: Speci men Type: TISSUE SPECIMENOrdering Facility: [facility] Address: [address] [place], [place] [address] Result Comment: Surg ica Pathology Report Case: [id number] Authorizing Provider: Dione Reinoso MD Collected: 04/02/2023 [...] BIOPSY, evaluate UC Performed By: #### S ####[facility] LABCLIA [id number] [facility] [id number] [place] [address] [place] [facility] FINAL DIAGNOSIS Normal [facility] Comment on above: Order Comment: Speci yung Type: TISSUE SPECIMENOrdering Facility: [facility] Address: [address] [place], [place] [address] Result Comment: A. I leum, biopsy: - [...] inflammation and dysplasia. Performed By: #### S ####[facility] LABCLIA [id number] [address] STATES OF [facility] FINAL PERFORMING LAB Normal [facility] Comment on above: Order Comment: Speci men Type: TISSUE SPECIMENOrdering Facility: [facility] Address: [address] [place] [address] Result Comment: Diag nostic interpretation performed at [facility], [address] [place] [address] CLPA# [id number] Apron Worker: Forrest Rubio M.D. Performed By: #### S ####[facility] LABCLIA [id number] [address] GROSS DESCRIPTION A. ILEUM BIOPSY Normal [facility] Comment on above: Order Comment: Speci men Type: TISSUE SPECIMENOrdering Facility: [facility] Address: [address] [place] [address] Result Comment: Rece ived in formalin is [...] in one cassette. Gross examination performed at [facility], [address] [facility] [place] [address] JT 04/02/2023 11:50 PM Performed By: #### S ####[facility] LABVERONIQUE [id number] [address] [place] CNOVon 03-12-2023 CNOV Office Visit (PDAVON ) JESUS WOLF ([id number]) 1955 F Date Time Provider Department 03/12/23 9:20 AM BEVERLY FRANCO PDAVON During your visit today, we recorded the following information about you: Beverly Franco DPM 03/12/2023 9:51 AM Signed SERVICE DATE: March [...] TUNNEL RIGHT WRIST surgical correction COLONOSCOPY 05/10/2019 [facility] COLONOSCOPY GEN ANES 07/23/2020 Dr. Reinoso/Diverticulosis/H emorrhoids/ Ulcerative Colitis/Rpt in 2 yrs. EGD EUS 01/11/2020 [facility] LASIK Right prior to 1999 [...] 4 g (more content not included)... Normal [facility] 2023 CNPN Telephone (HEATHAV) JESUS WOLF ([id number]) 1955 F Date Time Provider Department 02/18/23 DIONE REINOSO During your visit today, we recorded the following information about you: Sandra Irving [facility] 2023 2:56 PM Signed Jesus Wolf is calling Dione Reinoso MD today with concern regarding Appointment. Patient hoping to be able to have this done in [place], and when the soonest that would be. When I tried rescheduled it denied me. Please advise and call patient. Thank you! Patient has been identified by name and birthdate. Person calling: self Call patient at: at home [phone] (home) [phone] (cell) Was an appointment scheduled: No Closing statement: Results or non-symptom based questions: Thank you for calling [facility], your call will be returned within the next business day. Sandra Irving P[facility] Mariana Mendez 2023 3:09 PM Signed Spoke to patient offered 03/09 or 03/23 at [place] patient declined as she has commitments on [...] 4 hours as needed for pain. - rnynlgq-puijlfwlr-rqwr min D3 500 mg-5 mcg (200 unit) per tablet Take 1 tablet by mouth three times daily. - MV with Hgo-Dtjssnna-Fvducw (CENTRUM SILVER) 0.4 mg-300 mcg- 250 mcg [...] hypertension [I1 (more content not included)... Normal [facility] CNPNon 02-13-2023 CNPN Telephone (GASTNO) JESUS WOLF ([id number]) 1955 F Date Time Provider Department 02/13/23 [...] Reinoso, please review the order and sign. Shear Helper, please call the patient to make arrangements. Thank you, JITENDRA Abad 2023 1:57 PM Signed Spoke to patient [...] disease) [K52.9] Order(s):COLONOSCOPY DIAGNOSTIC [GI11] Order #: [id number] FUTURE Prescriptions as of 2023 - pantoprazole [...] 4 hours as needed for pain. - fespyox-gsjutzjem-cvjm min D3 500 mg-5 mcg (200 unit) per tablet Take 1 tablet by mouth three times daily. - MV with Dpz-Vokajaoh-Zixyol (CENTRUM SILVER) 0.4 mg-300 mcg- 250 mcg [...] - multivita (more content not included)... Normal [facility] CNOVon 02-12-2023 CNOV Office Visit (PDAVON ) JESUS WOLF ([id number]) 1955 F Date Time Provider Department 02/12/23 11:15 AM BEVERLY FRANCO PDAVON During your visit [...] TUNNEL RIGHT WRIST surgical correction COLONOSCOPY 05/10/2019 [facility] COLONOSCOPY GEN ANES 07/23/2020 Dr. Reinoso/Diverticulosis/H emorrhoids/ Ulcerative Colitis/Rpt in 2 yrs. EGD EUS 01/11/2020 [facility] LASIK Right prior to 1999 MRI PANC/JEANIE WO/W IVCON 12/20/2019 [facility] PAST SURGICAL HISTORY OF 07/2013 bilateral foot procedure, [place] PAST SURGICAL HISTORY OF Ablation X2 TONSILLECTOMY [...] with meals.Di (more content not included)... Normal [facility] LUCIANOJESUS JACKSON Ezio ([id number]) 1955 F Date Time Provider Department 02/09/23 [...] 4 hours as needed for pain. - cejhjeh-udnlufezk-ilal min D3 500 mg-5 mcg (200 unit) per tablet Take 1 tablet by mouth three times daily. - MV with Lmx-Hwmyvyua-Qlwbqa (CENTRUM SILVER) 0.4 mg-300 mcg- 250 mcg [...] radiculitis, unspecif (more content not included)... Normal [facility] Calprotectin (Stl) [Mass/Mas s]on 02-09-2023 CALPROTECTIN, FECAL INTERP Elevated Abnormal Normal [facility] [place] Comment on above: Order Comment: Morena barragan Type: STOOL SPECIMENOrdering Facility: [facility] Address: [place] [phone] Result Comment: On 2022, [facility] implemented a new fecal calprotectin method, the [employer] Liaison Calprotectin assay. For assistance with interpretation of results in patients undergoing serial monitoring, contact Client Services at [phone] or [phone] to discuss options, preferably within 7 days of issuing this report. Interpretation: <50.0 ug/g: Normal 50.0 ug/g - 120.0 ug/g: Borderline elevated. Re-evaluation in 4-6 weeks is recommended if clinically indicated. >120.0 ug/g: Elevated Performed By: #### 3 8445-3 ####[facility] [id number] [place] [address] [place] CALPROTECTIN, FECAL QUANTITATIVE 335 ug/g High <50 [facility] [place] Comment on above: Order Comment: Morena barragan Type: STOOL SPECIMENOrdering Facility: [facility] Address: [place] [phone] Performed By: #### 3 8445-3 ####[facility] [id number] [place] [address] [place] C3 COMPLEMENT BLDon 02-06-20 Complement C3 [Mass/Vol] 179 mg/dL High 86 - 166 mg/dL [facility] 25([place])D3 [facility] 20[facility] 25-hydroxyvitamin D3 [Mass/Vol] 52.0 ng/mL Normal 31.0-80.0 [facility] [place] Comment on above: Order Comment: Morena barragan Type: BLOOD SPECIMENOrdering Facility: [facility] Address: [place] [phone] Result Comment: Clas sification of 25 [place] Vitamin D status: Deficiency/Insufficiency: < or = 30 ng/ml. Sufficiency/Optimal Levels: 31-80 ng/mL Toxicity: > 100 ng/mL. Test performed by chemiluminescent immunoassay. Performed By: #### 1 989-3 ####[facility] [id number] [place] [address] [place] PARVEZ BY IFA WITH REFLEXon Nuclear Ab IF (S) [Titer] Negative Normal Negative [facility] [place] Comment on above: Order Comment: Speci men Type: BLOOD SPECIMENOrdering Facility: [facility] Address: [address] [place] [address] Result Comment: Anti -nuclear antibody test is used as an aid in diagnosis of systemic autoimmune diseases. Where positive and clinically warranted, follow-up using disease-specific testing is recommended. Low positive titers are not uncommon with advanced age, certain chronic infections, and malignancies among others. Test methodology: Indirect fluorescence immunoassay (IFA) using HEp-2 cells. Performed By: #### A NAIFR ####[facility] [id number] [place] [address] [place] C3 SerPl-mCncon 02-04-2023 Complement C3 [Mass/Vol] 179 mg/dL High 86-166 [facility] [place] Comment on above: Order Comment: Speci men Type: BLOOD SPECIMENOrdering Facility: [facility] Address: [address] [place] [address] Performed By: #### 4 485-9, 2731-8 ####[facility] [id number] [place] [address] [place] C4 COMPLEMENT BLDon 02-05-20 23 Complement C4 [Mass/Vol] 39 mg/dL 13 - 46 mg/dL [facility] C4 SerPl-mCncon 02-04-2023 Complement C4 [Mass/Vol] 39 mg/dL Normal 13-46 [facility] [place] Comment on above: Order Comment: Speci men Type: BLOOD SPECIMENOrdering Facility: [facility] Address: [address] [place] [address] Performed By: #### 2 157-6, 09868-6, 4498-2, 69279-0 ####[facility] [id number] [place] [address] [place] CBC W Auto Differential pane l (Bld)on 02-04-2023 Basophils (Bld) [#/Vol] 0.03 10*3/uL Normal <0.11 [facility] [place] Comment on above: Order Comment: Speci men Type: BLOOD SPECIMENOrdering Facility: [facility] Address: [address] [place] [address] Performed By: #### 5 7021-8 ####[facility] [id number] [place] [address] [place] Basophils/100 WBC (Bld) 0.4 % Normal [facility] Comment on above: Order Comment: Speci men Type: BLOOD SPECIMENOrdering Facility: [facility] Address: [address] [place] [address] Performed By: #### 5 7021-8 ####[facility] [id number] [place] [address] [place] Differential cell count method Nom (Bld) Auto Normal [facility] [place] Comment on above: Order Comment: Speci men Type: BLOOD SPECIMENOrdering Facility: [facility] Address: [address] [place], [place] [address] Performed By: #### 5 7021-8 ####[facility] [id number] [place] [address] [place] Eosinophils (Bld) [#/Vol] 0.26 10*3/uL Normal <0.46 [facility] [place] Comment on above: Order Comment: Speci men Type: BLOOD SPECIMENOrdering Facility: [facility] Address: [address] [place], [place] [address] Performed By: #### 5 7021-8 ####[facility] [id number] [place] [address] [place] Eosinophils/100 WBC (Bld) 3.1 % Normal [facility] Comment on above: Order Comment: Speci men Type: BLOOD SPECIMENOrdering Facility: [facility] Address: [address] Performed By: #### 5 7021-8 ####[facility]IA [id number] [place] [address] [place] Erythrocyte distribution width (RBC) [Ratio] 13.2 % Normal 11.5-15.0 [facility] Comment on above: Order Comment: Speci men Type: BLOOD SPECIMENOrdering Facility: [facility] Address: [address] [place] [address] Performed By: #### 5 7021-8 ####[facility] [id number] [place] [address] [place] Hematocrit (Bld) [Volume fraction] 41.8 % Normal 36.0-46.0 [facility] Comment on above: Order Comment: Speci men Type: BLOOD SPECIMENOrdering Facility: [facility] Address: [address] [place] [address] Performed By: #### 5 7021-8 ####[facility] [id number] [place] [address] [place] Hemoglobin (Bld) [Mass/Vol] 13.5 g/dL Normal 11.5-15.5 [facility] Comment on above: Order Comment: Speci men Type: BLOOD SPECIMENOrdering Facility: [facility] Address: [address] Performed By: #### 5 7021-8 ####[facility] [id number] [place] [address] [place] Immature granulocytes (Bld) [#/Vol] 10*3/uL Normal <0.10 [facility] Comment on above: Order Comment: Speci men Type: BLOOD SPECIMENOrdering Facility: [facility] Address: [address] [place], [place] [address] Performed By: #### 5 7021-8 ####[facility] [id number] [place] [address] [place] Immature granulocytes/100 WBC (Bld) 0.2 % Normal [facility] Comment on above: Order Comment: Speci men Type: BLOOD SPECIMENOrdering Facility: [facility] Address: [address] [place], [place] [address] Performed By: #### 5 7021-8 ####[facility] [id number] [place] [address] [place] Lymphocytes (Bld) [#/Vol] 2.04 10*3/uL Normal 1.00-4.00 [facility] Comment on above: Order Comment: Speci men Type: BLOOD SPECIMENOrdering Facility: [facility] Address: [address] [place], [place] [address] Performed By: #### 5 7021-8 ####[facility]IA [id number] [place] [address] [place] Lymphocytes/100 WBC (Bld) 24.5 % Normal [facility] Comment on above: Order Comment: Speci men Type: BLOOD SPECIMENOrdering Facility: [facility] Address: [address] [place], [place] [address] Performed By: #### 5 7021-8 ####[facility]IA [id number] [place] [address] [place] MCH (RBC) [Entitic mass] 31.3 pg Normal 26.0-34.0 [facility] Comment on above: Order Comment: Speci men Type: BLOOD SPECIMENOrdering Facility: [facility] Address: [address] [place], [place] [address] Performed By: #### 5 7021-8 ####[facility] [id number] [place] [address] [place] MCHC (RBC) [Mass/Vol] 32.3 g/dL Normal 30.5-36.0 [facility] Comment on above: Order Comment: Speci men Type: BLOOD SPECIMENOrdering Facility: [facility] Address: [address] [place] [address] Performed By: #### 5 7021-8 ####[facility] [id number] [place] [address] [place] MCV (RBC) [Entitic vol] 97.0 fL Normal 80.0-100.0 [facility] Comment on above: Order Comment: Speci men Type: BLOOD SPECIMENOrdering Facility: [facility] Address: [address] [place], [place] [address] Performed By: #### 5 7021-8 ####[facility] [id number] [place] [address] [place] Monocytes (Bld) [#/Vol] 0.92 10*3/uL High <0.87 [facility] Comment on above: Order Comment: Speci men Type: BLOOD SPECIMENOrdering Facility: [facility] Address: [address] [place], [place] [address] Performed By: #### 5 7021-8 ####[facility] [id number] [place] [address] [place] Monocytes/100 WBC (Bld) 11.0 % Normal [facility] Comment on above: Order Comment: Speci men Type: BLOOD SPECIMENOrdering Facility: [facility] Address: [address] [place], [place] [address] Performed By: #### 5 7021-8 ####[facility] [id number] [place] [address] [place] Neutrophils (Bld) [#/Vol] 5.07 10*3/uL Normal 1.45-7.50 [facility] Comment on above: Order Comment: Speci men Type: BLOOD SPECIMENOrdering Facility: [facility] Address: [address] Performed By: #### 5 7021-8 ####[facility] [id number] [address] [place] [facility] Neutrophils/100 WBC (Bld) 60.8 % Normal [facility] Comment on above: Order Comment: Speci men Type: BLOOD SPECIMENOrdering Facility: [facility] Address: [address] Performed By: #### 5 7021-8 ####[facility] [id number] [place] [address] [place] Nucleated RBC (Bld) [#/Vol] 10*3/uL Normal <0.01 [facility] Comment on above: Order Comment: Speci men Type: BLOOD SPECIMENOrdering Facility: [facility] Address: [address] Performed By: #### 5 7021-8 ####[facility] [id number] [place] [address] [place] Nucleated RBC/100 WBC (Bld) [Ratio] 0.0 /100 WBC Normal [facility] Comment on above: Order Comment: Speci men Type: BLOOD SPECIMENOrdering Facility: [facility] Address: [address] Performed By: #### 5 7021-8 ####[facility] [id number] [place] [address] [place] Platelet mean volume (Bld) [Entitic vol] 10.5 fL Normal 9.0-12.7 [facility] Comment on above: Order Comment: Speci men Type: BLOOD SPECIMENOrdering Facility: [facility] Address: [address] [place], [place] [address] Performed By: #### 5 7021-8 ####[facility] [id number] [place] [address] [place] Platelets (Bld) [#/Vol] 279 10*3/uL Normal 150-400 [facility] Comment on above: Order Comment: Speci men Type: BLOOD SPECIMENOrdering Facility: [facility] Address: [address] [place] [address] Performed By: #### 5 7021-8 ####[facility] [id number] [place] [address] [place] RBC (Bld) [#/Vol] 4.31 10*6/uL Normal 3.90-5.[address] [facility] Comment on above: Order Comment: Speci men Type: BLOOD SPECIMENOrdering Facility: [facility] Address: [address] [place] [address] Performed By: #### 5 7021-8 ####[facility] [id number] [place] [address] [place] WBC (Bld) [#/Vol] 8.34 10*3/uL Normal 3.70-11.[address] [facility] Comment on above: Order Comment: Speci men Type: BLOOD SPECIMENOrdering Facility: [facility] Address: [address] [place] [address] Performed By: #### 5 7021-8 ####[facility] [id number] [place] [address] [place] Basophils (Bld) [#/Vol] 0.03 10*3/uL <0.11 k/uL [facility] Basophils/100 WBC (Bld) 0.4 % [facility] Differential cell count method Nom (Bld) Auto [facility] Eosinophils (Bld) [#/Vol] 0.26 10*3/uL <0.46 k/uL [facility] Eosinophils/100 WBC (Bld) 3.1 % [facility] Erythrocyte distribution width (RBC) [Ratio] 13.2 % 11.5 - 15.0 % [facility] Hematocrit (Bld) [Volume fraction] 41.8 % 36.0 - 46.0 % [facility] Hemoglobin (Bld) [Mass/Vol] 13.5 g/dL 11.5 - 15.5 g/dL [facility] Immature granulocytes (Bld) [#/Vol] <0.10 k/uL [facility] Immature granulocytes/100 WBC (Bld) 0.2 % [facility] Lymphocytes (Bld) [#/Vol] 2.04 10*3/uL 1.00 - 4.00 k/uL [facility] Lymphocytes/100 WBC (Bld) 24.5 % [facility] MCH (RBC) [Entitic mass] 31.3 pg 26.0 - 34.0 pg [facility] MCHC (RBC) [Mass/Vol] 32.3 g/dL 30.5 - 36.0 g/dL [facility] MCV (RBC) [Entitic vol] 97.0 fL 80.0 - 100.0 fL [facility] Monocytes (Bld) [#/Vol] 0.92 10*3/uL High <0.87 k/uL [facility] Monocytes/100 WBC (Bld) 11.0 % C [facility] Neutrophils (Bld) [#/Vol] 5.07 10*3/uL 1.45 - 7.50 k/uL [facility] Neutrophils/100 WBC (Bld) 60.8 % [facility] Nucleated RBC (Bld) [#/Vol] <0.01 k/uL [facility] Nucleated RBC/100 WBC (Bld) [Ratio] 0.0 /100 WBC [facility] Platelet mean volume (Bld) [Entitic vol] 10.5 fL 9.0 - 12.7 fL [facility] Platelets (Bld) [#/Vol] 279 10*3/uL 150 - 400 k/uL [facility] RBC (Bld) [#/Vol] 4.31 10*6/uL 3.90 - 5.2 0 m/uL [facility] WBC (Bld) [#/Vol] 8.34 10*3/uL 3.70 - 11. 00 k/uL [facility] CK CREATINE KINASEon 023 CK [Catalytic activity/Vol] 377 U/L High 42 - 196 U/L [facility] CK SerPl-cCncon 02-04-2023 CK [Catalytic activity/Vol] 377 U/L High 42-196 [facility] Comment on above: Order Comment: Speci men Type: BLOOD SPECIMENOrdering Facility: [facility] Address: [address] [place] [id number] Performed By: #### 2 157-6, 74581-8, 4498-2, 40144-6 ####[facility] [id number] [facility] [address] CNOVon 02-04-2023 CNOV Office Visit (RHEUMN ) JESUS WOLF ([id number]) 1955 F Date Time Provider Department 02/04/23 1:00 PM NADEGE HAWKINS RHEUMN During your visit today, we recorded the following information about you: Temperature Pulse Blood pressure Weight 97 degrees 72/minute 116/54 113.4 kg Nadege Hawkins DO 02/04/2023 4:07 PM Signed [facility] DEPARTMENT OF RHEUMATIC [...] TUNNEL RIGHT WRIST surgical correction COLONOSCOPY 05/10/2019 [facility] COLONOSCOPY GEN ANES 07/23/2020 Dr. Reinoso/Diverticulosis/H emorrhoids/ Ulcerative Colitis/Rpt in 2 yrs. EGD EUS 01/11/2020 [facility] LASIK Right prior to 1999 MRI PANC/JEANIE WO/W I (more content not included)... Normal [facility] Comprehensive metabolic 2000 panelon 02-04-2023 Albumin [Mass/Vol] 4.2 g/dL 3.9 - 4.9 g/dL [facility] ALP [Catalytic activity/Vol] 116 U/L 34 - 123 U/L [facility] ALT [Catalytic activity/Vol] 20 U/L 7 - 38 U/L [facility] Anion gap [Moles/Vol] 14 mmol/L 9 - 18 mmol/L [facility] AST [Catalytic activity/Vol] 30 U/L 13 - 35 U/L [facility] Bilirubin [Mass/Vol] 0.6 mg/dL 0.2 - 1 .3 mg/dL [facility] Calcium [Mass/Vol] 9.8 mg/dL 8.5 - 10. 2 mg/dL [facility] Chloride [Moles/Vol] 106 mmol/L High 97 - 10 5 mmol/L [facility] CO2 [Moles/Vol] 20 mmol/L Low 22 - 30 mmol/L [facility] Creatinine [Mass/Vol] 1.14 mg/dL High 0.58 - 0.96 mg/dL [facility] Estimated Glomerular Filtration Rate 53 mL/min/1.73m Low >=60 mL/min/1.73m [facility] Glucose [Mass/Vol] 82 mg/dL 74 - 99 mg/dL [facility] Potassium [Moles/Vol] 5.0 mmol/L 3.7 - 5.1 mmol/L [facility] Protein [Mass/Vol] 6.8 g/dL 6.3 - 8.0 g/dL [facility] Sodium [Moles/Vol] 140 mmol/L 136 - 144 mmol/L [facility] Urea nitrogen [Mass/Vol] 24 mg/dL High 7 - 21 mg/dL [facility] Albumin [Mass/Vol] 4.2 g/dL Normal 3.9-4.9 [facility] Comment on above: Order Comment: Speci men Type: BLOOD SPECIMENOrdering Facility: [facility] Address: [address] [place] [address] Performed By: #### 2 157-6, 69262-7, 4498-2, 81629-9 ####[facility] [id number] [place] [address] [place] ALP [Catalytic activity/Vol] 116 U/L Normal 34-123 [facility] Comment on above: Order Comment: Speci men Type: BLOOD SPECIMENOrdering Facility: [facility] Address: [address] [place] [address] Performed By: #### 2 157-6, 79092-2, 4498-2, 10212-1 ####[facility] [id number] [address] [place] ALT [Catalytic activity/Vol] 20 U/L Normal 7-38 [facility] Comment on above: Order Comment: Speci men Type: BLOOD SPECIMENOrdering Facility: [facility] Address: [address] [place] [address] Performed By: #### 2 157-6, 40582-8, 4498-2, 52255-9 ####[facility] [id number] [address] [address] [id number] [address] [place] Anion gap [Moles/Vol] 14 mmol/L Normal 9-18 [facility] Comment on above: Order Comment: Speci men Type: BLOOD SPECIMENOrdering Facility: [facility] Address: [address] [place] [address] Performed By: #### 2 157-6, 01293-8, 4498-2, 14436-0 ####[facility] [id number] [place] [address] [place] AST [Catalytic activity/Vol] 30 U/L Normal 13-35 [facility] Comment on above: Order Comment: Speci men Type: BLOOD SPECIMENOrdering Facility: [facility] Address: [address] [place] [address] Performed By: #### 2 157-6, 96483-1, 4498-2, 33702-1 ####[facility] [id number] [place] [address] [place] Bilirubin [Mass/Vol] 0.6 mg/dL Normal 0.2-1.3 [facility] Comment on above: Order Comment: Speci men Type: BLOOD SPECIMENOrdering Facility: [facility] Address: [address] [place] [address] Performed By: #### 2 157-6, 56680-3, 4498-2, 05286-3 ####[facility] [id number] [place] [address] [place] Calcium [Mass/Vol] 9.8 mg/dL Normal 8.5-10.2 [facility] Comment on above: Order Comment: Speci men Type: BLOOD SPECIMENOrdering Facility: [facility] Address: [address] [place] [address] Performed By: #### 2 157-6, 34658-6, 4498-2, 59538-5 ####[facility]CL[facility] [id number] [place] [address] [place] Chloride [Moles/Vol] 106 mmol/L High 97-105 [facility] Comment on above: Order Comment: Speci men Type: BLOOD SPECIMENOrdering Facility: [facility] Address: [address] [place] [address] Performed By: #### 2 157-6, 26534-9, 4498-2, 36807-0 ####[facility] [id number] [place] [address] [place] CO2 [Moles/Vol] 20 mmol/L Low 22-30 [facility] Comment on above: Order Comment: Speci men Type: BLOOD SPECIMENOrdering Facility: [facility] Address: [address] [place] [address] Performed By: #### 2 157-6, 33669-6, 4498-2, 74633-2 ####[facility] [id number] [place] [address] [place] Creatinine [Mass/Vol] 1.14 mg/dL High 0.58-0.96 [facility] Comment on above: Order Comment: Speci men Type: BLOOD SPECIMENOrdering Facility: [facility] Address: [address] [place] [address] Performed By: #### 2 157-6, 95384-0, 4498-2, 94204-7 ####[facility] [id number] [place] [address] [place] ESTIMATED GLOMERULAR FILTRATION RATE 53 mL/min/1.73m??? Low >=60 [facility] Comment on above: Order Comment: Speci men Type: BLOOD SPECIMENOrdering Facility: [facility] Address: [address] [place] [address] Result Comment: Anna mated Glomerular Filtration Rate [...] accurately reflect actual GFR. Performed By: #### 2 157-6, 64924-4, 4498-2, 87162-4 ####[facility] [id number] [address] [address] [place] Glucose [Mass/Vol] 82 mg/dL Normal 74-99 [facility] Comment on above: Order Comment: Morena barragan Type: BLOOD SPECIMENOrdering Facility: [facility] Address: [address] [place] [address] Result Comment: The [place] [employer] (ADA) provides guidance for cutoff [...] Standards of Medical Care in Diabetes 2016, [place] [employer]. Diabetes Care. 2016.39(Suppl 1). Performed By: #### 2 157-6, 12443-5, 4498-2, 28605-1 ####[facility] [id number] [address] [address] [place] Potassium [Moles/Vol] 5.0 mmol/L Normal 3.7-5.1 [facility] Comment on above: Order Comment: Morena barragan Type: BLOOD SPECIMENOrdering Facility: [facility] Address: [address] [place] [address] Performed By: #### 2 157-6, 03712-3, 4498-2, 68879-0 ####[facility] [id number] [address] [address] [place] Protein [Mass/Vol] 6.8 g/dL Normal 6.3-8.0 [facility] Comment on above: Order Comment: Speci men Type: BLOOD SPECIMENOrdering Facility: [facility] Address: [address] [place] [address] Performed By: #### 2 157-6, 03357-8, 4498-2, 94225-1 ####[facility] [id number] [place] [address] [place] Sodium [Moles/Vol] 140 mmol/L Normal 136-144 [facility] Comment on above: Order Comment: Speci men Type: BLOOD SPECIMENOrdering Facility: [facility] Address: [address] [place] [address] Performed By: #### 2 157-6, 92653-3, 4498-2, 82443-9 ####[facility] LABIA [id number] [place] [address] [place] Urea nitrogen [Mass/Vol] 24 mg/dL High 7-21 [facility] [place] Comment on above: Order Comment: Speci men Type: BLOOD SPECIMENOrdering Facility: [facility] Address: [address] [place] [address] Performed By: #### 2 157-6, 49683-4, 4498-2, 65640-1 ####[facility] LABIA [id number] [place] [address] [place] Cyclic citrullinated peptide IgG Qnon 02-04-2023 CCP ANTIBODY IGG QUALITATIVE Negative Normal Negative [facility] [place] Comment on above: Order Comment: Speci men Type: BLOOD SPECIMENOrdering Facility: [facility] Address: [address] [place] [address] Performed By: #### D NAAB, 20121-2 ####[facility] LABCLIA [id number] [place] [address] [place] DNA ANTIBODY DS BLDon 2022 DNA ANTIBODY <12 Normal <30 [facility] [place] Comment on above: Order Comment: Speci men Type: BLOOD SPECIMENOrdering Facility: [facility] Address: [address] [place] [address] Result Comment: Nega tive for ds DNA Antibodies. <30 IU/mL Negative 30-74 IU/mL Equivocal >74 IU/mL Positive Performed By: #### D NAAB, 34114-0 ####[facility] LABCLIA [id number] [place] [address] [place] PROTEIN CREATININE RATIOon 0 02-04-2023 Protein/Creatinine (U) [Mass ratio] 0.08 mg/mg <0.15 mg/mg [facility] PTH-Intact SerPl-mCncon 01-16 Parathyrin.intact [Mass/Vol] 47 pg/mL Normal 15-65 [facility] [place] Comment on above: Order Comment: Speci men Type: BLOOD SPECIMENOrdering Facility: [facility] Address: [address] [place] [address] Performed By: #### 4 485-9, 2731-8 ####[facility] LABCLIA [id number] [place] [address] [place] Prot/Creat Uron 02-04-2023 Protein/Creatinine (U) [Mass ratio] 0.08 mg/mg Normal <0.15 [facility] [place] Comment on above: Order Comment: Speci men Type: URINE SPECIMENOrdering Facility: [facility] Address: [address] [place] [address] Result Comment: Adul t Proteinuria Categories: <0.15 mg/mg is considered normal to mildly increased 0.15 - 0.50 mg/mg is considered moderately increased >0.50 mg/mg is considered severely increased KDIGO. (2013). KDIGO 2012 Clinical Practice Guideline for the Evaluation and Management of Chronic Kidney Disease. Official Journal of the International Society of Nephrology, 3(1), 1-150. Performed By: #### 2 890-2 ####[facility] LABCLIA [id number] [address] STATES OF [facility] Protein/Creatinine (U) [Mass ratio]on 02-04-2023 Creatinine (U) [Mass/Vol] 133.7 mg/dL 20.0 - 300.0 mg/dL [facility] Protein (U) [Mass/Vol] 11 mg/dL 0 - 20 mg/dL [facility] Creatinine (U) [Mass/Vol] 133.7 mg/dL Normal 20.0-300.0 [facility] [place] Comment on above: Order Comment: Speci men Type: URINE SPECIMENOrdering Facility: [facility] Address: [address] [place] [address] Performed By: #### 2 890-2 ####[facility] LABIA [id number] [address] Protein (U) [Mass/Vol] 11 mg/dL Normal 0-20 [facility] Comment on above: Order Comment: Speci men Type: URINE SPECIMENOrdering Facility: [facility] Address: [address] [place] [address] Performed By: #### 2 890-2 ####[facility] LABIA [id number] [address] [place] RHEUMATOID FACTOR BLon 02-04 Rheumatoid factor Qn <16 IU/mL [facility] Rheumatoid fact SerPl-aCncon 02-04-2023 Rheumatoid factor Qn [IU]/mL Normal <16 [facility] Comment on above: Order Comment: Speci men Type: BLOOD SPECIMENOrdering Facility: [facility] Address: [address] [place] [address] Performed By: #### 2 157-6, 68695-2, 4498-2, 84434-0 ####[facility] LABCLIA [id number] [place] [address] [place] Urinalysis complete panel (U )on 02-04-2023 Bacteria LM.HPF (Urine sed) [#/Area] Rare Abnormal None Seen /HPF [facility] Bilirubin Ql (U) Negative Negative [facility] Clarity (Unsp spec) Clear Clear [facility] Color (U) Yellow Yellow [facility] Epithelial cells LM.HPF (Urine sed) [#/Area] Few [facility] Glucose Test strip (U) [Mass/Vol] Negative Trace, Negative [facility] Hemoglobin Ql (U) Negative Negative, Trace [facility] Hyaline casts (Urine sed) [#/Area] /[LPF] Abnormal 0 /LPF [facility] Ketones Ql (U) Negative Trace, Negative [facility] Leukocyte esterase Test strip Ql (U) 250 Bailey/uL Abnormal Negative, 25 Bailey/uL [facility] Nitrite Ql (U) 1+ Abnormal Negative [facility] pH (U) 5.5 [pH] 5.0 - 8.0 [facility] Protein (U) [Mass/Vol] 1+ Abnormal Trace , Negative [facility] RBC LM.HPF (Urine sed) [#/Area] 0-3 /HPF 0-3 /HPF [facility] Specific gravity (U) [Rel density] 1.018 1.005 - 1.030 [facility] Urobilinogen Ql (U) Negative Negative [facility] WBC LM.HPF (Urine sed) [#/Area] /[HPF] Abnormal 0-5 /HPF [facility] Bacteria LM.HPF (Urine sed) [#/Area] Rare Abnormal None Seen [facility] [place] Comment on above: Order Comment: Speci men Type: URINE SPECIMENOrdering Facility: [facility] Address: [address] [place] [address] Performed By: #### 2 4356-8 ####[facility] LABIA [id number] [address] STATES OF [facility] Bilirubin Ql (U) Negative Normal Negative [facility] Comment on above: Order Comment: Speci men Type: URINE SPECIMENOrdering Facility: [facility] Address: [address] [place] [address] Performed By: #### 2 4356-8 ####[facility] LABIA [id number] [address] STATES [place] Clarity (Unsp spec) Clear Normal Clear [facility] Comment on above: Order Comment: Speci men Type: URINE SPECIMENOrdering Facility: [facility] Address: [address] [place], [place] [address] Performed By: #### 2 4356-8 ####[facility] LABCLIA [id number] [place] [address] [place] Color (U) Yellow Normal Yellow [facility] [place] Comment on above: Order Comment: Speci men Type: URINE SPECIMENOrdering Facility: [facility] Address: [address] Performed By: #### 2 4356-8 ####[facility] LABCLIA [id number] [place] [address] [place] Epithelial cells LM.HPF (Urine sed) [#/Area] Few Normal [facility] [place] Comment on above: Order Comment: Speci men Type: URINE SPECIMENOrdering Facility: [facility] Address: [address] [place], [place] [address] Performed By: #### 2 4356-8 ####[facility] LABCLIA [id number] [place] [address] [place] Glucose Test strip (U) [Mass/Vol] Negative Normal Trace, Negative [facility] [place] Comment on above: Order Comment: Speci men Type: URINE SPECIMENOrdering Facility: [facility] Address: [address] [place] [address] Performed By: #### 2 4356-8 ####[facility] LABCLIA [id number] [place] [address] [place] Hemoglobin Ql (U) Negative Normal Negative, Trace [facility] [place] Comment on above: Order Comment: Speci men Type: URINE SPECIMENOrdering Facility: [facility] Address: [address] Performed By: #### 2 4356-8 ####[facility] LABCLIA [id number] [place] [address] [place] Hyaline casts (Urine sed) [#/Area] /[LPF] Abnormal 0 /LPF [facility] [place] Comment on above: Order Comment: Speci men Type: URINE SPECIMENOrdering Facility: [facility] Address: [address] [place] [address] Performed By: #### 2 4356-8 ####[facility] LABCLIA [id number] [place] [address] [place] Ketones Ql (U) Negative Normal Trace, Negative [facility] [place] Comment on above: Order Comment: Speci men Type: URINE SPECIMENOrdering Facility: [facility] Address: [address] [place] [address] Performed By: #### 2 4356-8 ####[facility] LABCLIA [id number] [address] [place] Leukocyte esterase Test strip Ql (U) 250 Bailey/uL Abnormal Negative, 25 Bailey/uL [facility] [place] Comment on above: Order Comment: Speci men Type: URINE SPECIMENOrdering Facility: [facility] Address: [address] [place] [address] Performed By: #### 2 4356-8 ####[facility] LABCLIA [id number] [place] [address] [place] Nitrite Ql (U) 1+ Abnormal Negative [facility] [place] Comment on above: Order Comment: Speci men Type: URINE SPECIMENOrdering Facility: [facility] Address: [address] [place] [address] Performed By: #### 2 4356-8 ####[facility] LABCLIA [id number] [place] [address] [place] pH (U) 5.5 [pH] Normal 5.0-8.0 [facility] [place] Comment on above: Order Comment: Speci men Type: URINE SPECIMENOrdering Facility: [facility] Address: [address] Performed By: #### 2 4356-8 ####[facility] LABIA [id number] [address] STATES [facility] Protein (U) [Mass/Vol] 1+ Abnormal Trace , Negative [facility] [place] Comment on above: Order Comment: Speci men Type: URINE SPECIMENOrdering Facility: [facility] Address: [address] Performed By: #### 2 4356-8 ####[facility] [id number] [place] [address] [place] RBC LM.HPF (Urine sed) [#/Area] 0-3 /HPF Normal 0-3 /HPF [facility] [place] Comment on above: Order Comment: Speci men Type: URINE SPECIMENOrdering Facility: [facility] Address: [address] [place], [place] [address] Performed By: #### 2 4356-8 ####[facility] [id number] [address] STATES [facility] Specific gravity (U) [Rel density] 1.018 Normal 1.005-1.030 [facility] [place] Comment on above: Order Comment: Speci men Type: URINE SPECIMENOrdering Facility: [facility] Address: [address] [place], [place] [address] Performed By: #### 2 4356-8 ####[facility] LABIA [id number] [address] STATES [place] Urobilinogen Ql (U) Negative Normal Negative [facility] Comment on above: Order Comment: Speci men Type: URINE SPECIMENOrdering Facility: [facility] Address: [address] Performed By: #### 2 4356-8 ####[facility] LABIA [id number] [address] WBC LM.HPF (Urine sed) [#/Area] /[HPF] Abnormal 0-5 /HPF [facility] [place] Comment on above: Order Comment: Speci men Type: URINE SPECIMENOrdering Facility: [facility] Address: [address] [place] [address] Performed By: #### 2 4356-8 ####[facility] LABCLIA [id number] [address] [place] cCP IgG SerPl-aCncon 023 Cyclic citrullinated peptide IgG Qn <15 Normal <20 [facility] [place] Comment on above: Order Comment: Speci men Type: BLOOD SPECIMENOrdering Facility: [facility] Address: [address] [place] [address] Performed By: #### D NAAB, 67264-9 ####[facility] LABCLIA [id number] [address] [place] CNOVon 01-22-2023 CNOV Office Visit (PDAVON ) JESUS WOLF ([id number]) 1955 F Date Time Provider Department 01/22/23 10:15 AM BEVERLY FRANCO PDAVON During your [...] with uninfected necrosis SLE (systemic lupus erythematosus) ([facility]) Sleep apnea 07/29/2012 PAST SURGICAL HISTORY Procedure Laterality Date APPENDECTOMY CARPAL TUNNEL RIGHT WRIST surgical correction COLONOSCOPY 05/10/2019 [facility] COLONOSCOPY GEN ANES 07/23/2020 Dr. Reinoso/Diverticulosis/H emorrhoids/ Ulcerative Colitis/Rpt in 2 yrs. EGD EUS 01/11/2020 [facility] LASIK Right prior to 1999 [...] once daily (more content not included)... Normal [facility] [place] CNOVon 01-08-2023 CNOV Office Visit (PDAVON ) JESUS WOLF ([id number]) 1955 F Date Time Provider Department 01/08/23 1:40 PM BEVERLY FRANCOVON During your visit today, we recorded the [...] TUNNEL RIGHT WRIST surgical correction COLONOSCOPY 05/10/2019 [facility] COLONOSCOPY GEN ANES 07/23/2020 Dr. Reinoso/Diverticulosis/H emorrhoids/ Ulcerative Colitis/Rpt in 2 yrs. EGD EUS 01/11/2020 [facility] LASIK Right prior to 1999 MRI PANC/JEANIE WO/W IVCON 12/20/2019 [facility] CYSTECTOM[facility] PAST SURGICAL HISTORY OF 07/2013 bilateral foot procedure, [place] PAST SURGICAL HISTORY OF Ablation X2 TONSILLECTOMY [...] daily.Disp: 120 (more content not included)... Normal [facility] [place] C diff Tox gens Stl Ql RAVIN+p robeon 12-25-2022 C. difficile toxin genes RAVIN+probe Ql (Stl) Positive Abnormal Negative for C. difficile toxin by PCR [facility] [place] Comment on above: Order Comment: Morena barragan Type: STOOL SPECIMENOrdering Facility: [facility] Address: [address] [place] [address] Result Comment: A po sitive PCR result [...] criteria for specimen submission. Performed By: #### 5 4067-4, CDEIA ####[facility] LABCLIA [id number] [place] [address] [place] C. DIFFICILE TOXIN BY EIAon 12-25-2022 C. difficile toxin A+B IA Ql (Stl) Not detected Normal Negative for C. difficile toxin [facility] [place] Comment on above: Order Comment: Morena barragan Type: STOOL SPECIMENOrdering Facility: [facility] Address: [address] [place] [address] Result Comment: Toxi n EIA is less sensitive than cell cytotoxin and PCR assays. Clinical correlation of PCR positive/toxin EIA negative results is required to distinguish C. difficle colonization from disease. Performed By: #### 5 4067-4, CDEIA ####[facility] LABCLIA [id number] [place] [address] [place] Calprotectin Stl-mCnton 05- Calprotectin (Stl) [Mass/Mass] 468.0 mg/kg High 0-50 [facility] [place] Comment on above: Order Comment: Speci men Type: STOOL SPECIMENOrdering Facility: [facility] Address: [address] [place] [address] Result Comment: INTE RPRETIVE INFORMATION: Calprotectin, Fecal <50.0 mg/kg : Normal 50.0-120.0 mg/kg: Borderline. Test should be re-evaluated in 4-6 wks. >120.0 mg/kg: Abnormal Performed By: #### 3 8445-3 ####[facility] LABCLIA [id number] [place] [address] [place] G lamblia+Cryptosp Ag Stl Ql IAon 12-25-2022 G. lamblia+Cryptosporidium sp Ag IA Ql (Stl) CRYPTOSPORIDIUM ANTIGEN BY EIA: Negative for Cryptosporidium by EIA. GIARDIA ANTIGEN BY EIA: Negative for Giardia lamblia by EIA. Normal [facility] [place] Comment on above: Performed By: #### 4 8059-0 ####[facility] LABCLIA [id number] [place] [address] [place] Gastrointestinal pathogens i dentified RAVIN+probe Nom (Stl)on 12-25-2022 Campylobacter sp DNA RAVIN+probe Nom (Unsp spec) Not detected Normal Not Detected [facility] [place] Comment on above: Order Comment: Speci men Type: STOOL SPECIMENOrdering Facility: [facility] Address: [address] [place] [address] Performed By: #### 7 9390-1 ####[facility] LABCLIA [id number] [place] [address] [place] Salmonella sp DNA RAVIN+probe Ql (Unsp spec) Not detected Normal Not Detected [facility] [place] Comment on above: Order Comment: Speci men Type: STOOL SPECIMENOrdering Facility: [facility] Address: [address] [place] [address] Performed By: #### 7 9390-1 ####[facility] LABCLIA [id number] [address] Shiga toxin stx gene RAVIN+probe Nom (Unsp spec) Not detected Normal Not Detected [facility] [place] Comment on above: Order Comment: Speci men Type: STOOL SPECIMENOrdering Facility: [facility] Address: [address] [place] [address] Performed By: #### 7 9390-1 ####[facility] LABCLIA [id number] [address] Shigella sp DNA RAVIN+probe Ql (Unsp spec) Not detected Normal Not Detected [facility] [place] Comment on above: Order Comment: Speci men Type: STOOL SPECIMENOrdering Facility: [facility] Address: [address] [place] [address] Performed By: #### 7 9390-1 ####[facility] LABCLIA [id number] [address] OF [facility] PANC ELASTASE, FECALon 12-25 PANC ELASTASE, FECAL 481 ug/g Normal >=100 [facility] Comment on above: Order Comment: Speci men Type: STOOL SPECIMENOrdering Facility: [facility] Address: [address] [place] [address] Result Comment: REFE RENCE INTERVAL: Pancreatic Elastase Fecal by Immunoassay Less than 100 ug/g............Severe insufficiency 100 - 199 ug/g................Moderate insufficiency 200 ug/g or greater...........Normal INTERPRETIVE INFORMATION: Pancreatic Elastase Fecal by Immunoassay Reference intervals do not apply for infants less than one month old. Performed by [facility], [address] [id number] [email or web address] Michael Amanda MD, PHD, Lab. Director Performed By: #### P ANCEF ####SocializrCLIA [id number] [place] [address] CNPRuth 11-10-2022 CNPN Telephone (RHEUMN) JESUS WOLF ([id number]) 1955 F Date Time Provider Department 11/10/22 [...] Reason for Visit: Received Outside Medical Records [1555] Cmt: Eye report Prescriptions as of 11/10/2022 [...] (mouth or hand numbness or tingling). - ipcvatt-tgfaysbfz-qmym min D3 500 mg-5 mcg (200 unit) per tablet Take 1 tablet by mouth three times daily. - MV with Php-Blrgaoec-Mvdkvd (CENTRUM SILVER) 0.4 mg-300 mcg- 250 mcg [...] unspecified *07/18 (more content not included)... Normal [facility] CULTURE BLOODon 10-01-2022 Microscopic examination of blood, [...] >=8 R P Clindamycin <=0.25 R P Quinupristin/Dalfopris tin <=0.25 S P Linezolid 1 S P Vancomycin 1 S P Tetracycline 2 S P Rifampicin 1 S P Trimethoprim/Sulfameth oxazole 20 S P Normal [facility] Comment on above: Performed By: #### L IPA, MG, CMP #### [facility] [address] [place] [address] Dr. Dank Lovelace LACTATE/LACTIC ACIDon 2022 Lactate [Moles/Vol] 1.0 mmol/L Normal 0.4-1.9 [facility] Comment on above: Performed By: #### L IPA, MG, CMP #### [facility] [address] [place] [address] Dr. Dank Lovelace BLOOD CULTURE ID PANELon A. baumannii Not detected Normal NOT DETECTED [facility] Comment on above: Performed By: #### L IPA, MG, CMP #### [facility] [address] [place] [address] Dr. Dank Lovelace Bacteriodes fragilis Not detected Normal NOT DETECTED [facility] Comment on above: Performed By: #### L IPA, MG, CMP #### [facility] [address] [place] [address] Dr. Dank LANZA CONTROLS PASSED Normal [facility] Comment on above: Performed By: #### L IPA, MG, CMP #### [facility] [address] [place] [address] Dr. Dank ARORADBTHD BLOOD CULTURE BOTTLE INFORMATION [place] [facility] Comment on above: Performed By: #### L IPA, MG, CMP #### [facility] [address] [place] [address] Dr. Dank Lovelace BCIDHD1 ANTIMICROBIAL RESISTANCE GENES Normal [facility] Comment on above: Performed By: #### L IPA, MG, CMP #### [facility] [address] [place] [address] Dr. Dank ARORADHD2 SEE BELOW Normal [facility] Comment on above: Result Comment: Note : Antimicrobial resitance can occur via multiple mechanisms. A Not Detected result for the [employer] antomicrobial resistance gene assays does not indicate antimicrobial susceptibility. Subculturing is required for species identification and susceptibility testing of isolates. Performed By: #### L IPA, MG, CMP #### [facility] [address] [place] [address] Dr. Dank Lovelace BCIDHD3 Positive Normal [facility] Comment on above: Performed By: #### L IPA, MG, CMP #### [facility] [address] [place] [address] Dr. Dank Lovelace BCIDHD4 Negative Normal [facility] Comment on above: Performed By: #### L IPA, MG, CMP #### [facility] [address] [place] [address] Dr. Dank Lovelace BCIDHD5 YEAST Normal [facility] Comment on above: Performed By: #### L IPA, MG, CMP #### [facility] [address] [place] [address] Dr. Dank Lovelace Bottle Set: Set 1 Normal [facility] Comment on above: Performed By: #### L IPA, MG, CMP #### [facility] [address] [place] [address] Dr. Dank Lovelace Bottle: Aerobic Normal [facility] Comment on above: Performed By: #### L IPA, MG, CMP #### [facility] [address] [place] [address] Dr. Dank Lovelace C. neoformans/gattii Not detected Normal NOT DETECTED [facility] Comment on above: Performed By: #### L IPA, MG, CMP #### [facility] [address] [place] [address] Dr. Dank Lovelace Nurys albicans Not detected Normal NOT DETECTED [facility] Comment on above: Performed By: #### L IPA, MG, CMP #### [facility] [address] [place] [address] Dr. Dank Lovelace Nurys auris Not detected Normal NOT DETECTED [facility] Comment on above: Performed By: #### L IPA, MG, CMP #### [facility] [address] [place] [address] Dr. Dank Lovelace Nurys glabrata Not detected Normal NOT DETECTED [facility] Comment on above: Performed By: #### L IPA, MG, CMP #### [facility] [address] [address] [address] Dank Lovelace Nurys Krusei Not detected Normal NOT DETECTED [facility] Comment on above: Performed By: #### L IPA, MG, CMP #### [facility] [address] [place] [address] Dr. Dank Lovelace Nurys Parapsilosis Not detected Normal NOT DETECTED [facility] Comment on above: Performed By: #### L IPA, MG, CMP #### [facility] [address] [place] [address] Dr. Dank Lovelace Unrys Tropicalis Not detected Normal NOT DETECTED [facility] Comment on above: Performed By: #### L IPA, MG, CMP #### [facility] [address] [place] [address] Dr. Dank Lovelace CTX-M Resistant Gene Not Applicable Normal NOT DETECTE [facility] Comment on above: Performed By: #### L IPA, MG, CMP #### [facility] [address] [place] [address] Dr. Dank Lovelace E. Cloacae complex Not detected Normal NOT DETECTED [facility] Comment on above: Performed By: #### L IPA, MG, CMP #### [facility] [address] [place] [address] Dr. Dank Lovelace E. faecalis Not detected Normal NOT DETECTED [facility] Comment on above: Performed By: #### L IPA, MG, CMP #### [facility] [address] [place] [address] Dr. Dank Lovelace E. faecium Not detected Normal NOT DETECTED [facility] Comment on above: Performed By: #### L IPA, MG, CMP #### [facility] [address] [place] [address] Dr. Dank Lovelace Enterobacteriaceae Not detected Normal NOT DETECTED [facility] Comment on above: Performed By: #### L IPA, MG, CMP #### [facility] [address] [address] [address] Dank Lovelace Escherichia coli Not detected Normal NOT DETECTED [facility] Comment on above: Performed By: #### L IPA, MG, CMP #### [facility] [address] [address] [address] Dank Lovelace H. influenzae Not detected Normal NOT DETECTED [facility] Comment on above: Performed By: #### L IPA, MG, CMP #### [facility] [address] [address] [address] Dank Lovelace IMP Resistant Gene Not Applicable Normal NOT DETECTED [facility] Comment on above: Performed By: #### L IPA, MG, CMP #### [facility] [address] [place] [address] Dr. Dank Lovelace K. oxytoca Not detected Normal NOT DETECTED [facility] Comment on above: Performed By: #### L IPA, MG, CMP #### [facility] [address] [place] [address] Dr. Dank Lovelace K. pneumoniae Not detected Normal NOT DETECTED [facility] Comment on above: Performed By: #### L IPA, MG, CMP #### [facility] [address] [place] [address] Dr. Dank Lovelace Klebsiella aerogenes Not detected Normal NOT DETECTED [facility] Comment on above: Performed By: #### L IPA, MG, CMP #### [facility] [address] [place] [address] Dr. Dank Lovelace KPC Resistant Gene Not Applicable Normal NOT DETECTED [facility] Comment on above: Performed By: #### L IPA, MG, CMP #### [facility] [address] [place] [address] Dr. Dank Lovelace List. monocytogenes Not detected Normal NOT DETECTED [facility] Comment on above: Performed By: #### L IPA, MG, CMP #### [facility] [address] [place] [address] Dr. Dank Lovelace Mcr-1 Resistant Gene Not Applicable Normal NOT DETECTE D [facility] Comment on above: Performed By: #### L IPA, MG, CMP #### [facility] [address] [address] [address] Dank Lovelace mecA/C Detected Abnormal NOT DETECTED [facility] Comment on above: Performed By: #### L IPA, MG, CMP #### [facility] [address] [place] [address] Dr. Dank Lovelace mecA/C MREJ Not Applicable Normal NOT DETECTED [facility] Comment on above: Performed By: #### L IPA, MG, CMP #### [facility] [address] [place] [address] Dr. Dank Lovleace N. meningitidis Not detected Normal NOT DETECTED [facility] Comment on above: Performed By: #### L IPA, MG, CMP #### [facility] [address] [place] [address] Dr. Dank Lovelace NDM Resistant Gene Not Applicable Normal NOT DETECTED [facility] Comment on above: Performed By: #### L IPA, MG, CMP #### [facility] [address] [place] [address] Dr. Dank Lovelace Oxa-48-like Not Applicable Normal NOT DETECTED [facility] Comment on above: Performed By: #### L IPA, MG, CMP #### [facility] [address] [place] [address] Dr. Dank Lovelace Proteus Not detected Normal NOT DETECTED [facility] Comment on above: Performed By: #### L IPA, MG, CMP #### [facility] [address] [place] [address] Dr. Dank Lovelace Pseud. aeruginosa Not detected Normal NOT DETECTED [facility] Comment on above: Performed By: #### L IPA, MG, CMP #### [facility] [address] [place] [address] Dr. Dank Lovelace S. maltophilia Not detected Normal NOT DETECTED [facility] Comment on above: Performed By: #### L IPA, MG, CMP #### [facility] [address] [place] [address] Dr. Dank Lovelace Seratia marcescens Not detected Normal NOT DETECTED [facility] Comment on above: Performed By: #### L IPA, MG, CMP #### [facility] [address] [place] [address] Dr. Dank Lovelace Site: l a/c Normal [facility] Comment on above: Performed By: #### L IPA, MG, CMP #### [facility] [address] [place] [address] Dr. Dank Lovelace Staph. aureus Not detected Normal NOT DETECTED [facility] Comment on above: Performed By: #### L IPA, MG, CMP #### [facility] [address] [place] [address] Dr. Dank Lovelace Staph. epidermidis Detected Critically abnormal NOT DETECTED [facility] Comment on above: Performed By: #### L IPA, MG, CMP #### [facility] [address] [place] [address] Dr. Dank Lovelace Staph. lugdunensis Not detected Normal NOT DETECTED [facility] Comment on above: Performed By: #### L IPA, MG, CMP #### [facility] [address] [place] [address] Dr. Dank Lovelace Staphylococcus Detected Critically abnormal NOT DETECTED [facility] Comment on above: Performed By: #### L IPA, MG, CMP #### [facility] [address] [place] [address] Dr. Dank Lovelace Strep. agalactiae Not detected Normal NOT DETECTED [facility] Comment on above: Performed By: #### L IPA, MG, CMP #### [facility] [address] [place] [address] Dr. Dank Lovelace Strep. pneumoniae Not detected Normal NOT DETECTED [facility] Comment on above: Performed By: #### L IPA, MG, CMP #### [facility] [address] [place] [address] Dr. Dank Lovelace Strep. pyogenes Not detected Normal NOT DETECTED [facility] Comment on above: Performed By: #### L IPA, MG, CMP #### [facility] [address] [place] [address] Dr. Dank Lovelace Streptococcus Not detected Normal NOT DETECTED [facility] Comment on above: Performed By: #### L IPA, MG, CMP #### [facility] [address] [place] [address] Dr. Dank Lovelace Belinda/Hakan Resist. Gene Not Applicable Normal NOT DETECTED [facility] Comment on above: Performed By: #### L IPA, MG, CMP #### [facility] [address] [place] [address] Dr. Dank Lovelace VIM Resistant Gene Not Applicable Normal NOT DETECTED [facility] Comment on above: Performed By: #### L IPA, MG, CMP #### [facility] [address] [place] [address] Dr. Dank Lovelace BNPon 09-28-2022 Natriuretic peptide B (Bld) [Mass/Vol] 282.0 pg/mL Normal <=900.0 [facility] Comment on above: Performed By: #### C MP, LIPA, TSH, BNP, CMADM #### [facility] [address] [place] [address] Dr. Dank Lovelace CARDIAC DENIS ADMITon 023 CK [Catalytic activity/Vol] 254 U/L Critically high 26-192 [facility] Comment on above: Performed By: #### C MP, LIPA, TSH, BNP, CMADM #### [facility] [address] [place] [address] Dr. Dank Lovelace CK.MB [Mass/Vol] 2.31 ng/mL Normal <=3.60 [facility] Comment on above: Performed By: #### C MP, LIPA, TSH, BNP, CMADM #### [facility] [address] [place] [address] Dr. Dank Lovelace HSTROP 10.2 pg/mL Normal 4.0-51.3 [facility] Comment on above: Result Comment: CUT- OFF POINTS HAVE BEEN ESTABLISHED BASED ON THE FOURTH UNIVERSAL DEFINITIONS OF MYOCARDIAL INFARCTION. THE UPPER REFERENCE LIMIT (URL) OF TROPONIN, DEFINED THE 99TH PERCENTILE OF cTnI DISTRIBUTION IN A REFERENCE POPULATION, HAS BEEN CONFIRMED THE DECISION THRESHOLD FOR CA DIAGNOSIS. Performed By: #### C MP, LIPA, TSH, BNP, CMADM #### [facility] [address] [place] [address] Dr. Dank Lovelace CHRISS 454 ng/mL Critically high 9-82 [facility] Comment on above: Performed By: #### C MP, LIPA, TSH, BNP, CMADM #### [facility] [address] [place] [address] Dr. Dank Lovelace CBC AUTO DIFFon 09-28-2022 BASO # 0.0 103/ul Normal 0.0-0.1 [facility] Comment on above: Performed By: #### L IPA, MG, CMP #### [facility] [address] [place] [address] Dr. Dank Lovelace Basophils/100 WBC (Bld) 0.2 % Normal 0.2-2.0 [facility] Comment on above: Performed By: #### L IPA, MG, CMP #### [facility] [address] [place] [address] Dr. Dank Lovelace EO # 0.1 103/ul Normal 0.0-0.7 [facility] Comment on above: Performed By: #### L IPA, MG, CMP #### [facility] [address] [place] [address] Dr. Dank Lovelace Eosinophils/100 WBC (Bld) 0.5 % Critically low 0.9-7.0 [facility] Comment on above: Performed By: #### L IPA, MG, CMP #### [facility] [address] [place] [address] Dr. Dank Lovelace Erythrocyte distribution width (RBC) [Ratio] 13.2 % Normal 11.0-15.0 [facility] Comment on above: Performed By: #### L IPA, MG, CMP #### [facility] [address] [place] [address] Dr. Dank Lovelace Hematocrit (Bld) [Volume fraction] 41.5 % Normal 36.0-48.0 [facility] Comment on above: Performed By: #### L IPA, MG, CMP #### [facility] [address] [place] [address] Dr. Dank Lovelace Hemoglobin (Bld) [Mass/Vol] 14.1 g/dL Normal 12.0-16.0 [facility] Comment on above: Performed By: #### L IPA, MG, CMP #### [facility] [address] [place] [address] Dr. Dank Lovelace IG # 0.02 10e3/ul Normal 0.00-0.03 [facility] Comment on above: Performed By: #### L IPA, MG, CMP #### [facility] [address] [place] [address] Dr. Dank Lovelace IG % 0.2 % Normal 0.0-0.5 [facility] Comment on above: Performed By: #### L IPA, MG, CMP #### [facility] [address] [place] [address] Dr. Dank Lovelace LYMPH # 0.7 103/ul Critically low 1.2-3.8 [facility] Comment on above: Performed By: #### L IPA, MG, CMP #### [facility] [address] [place] [address] Dr. Dank Lovelace Lymphocytes/100 WBC (Bld) 7.3 % Critically low 20.5-60.0 [facility] Comment on above: Performed By: #### L IPA, MG, CMP #### [facility] [address] [place] [address] Dr. Dank Lovelace MANUAL DIFF REQ NO Normal [facility] Comment on above: Performed By: #### L IPA, MG, CMP #### [facility] [address] [place] [address] Dr. Dank Lovelace MCH (RBC) [Entitic mass] 31.5 pg Normal 26.7-34.0 [facility] Comment on above: Performed By: #### L IPA, MG, CMP #### [facility] [address] [place] [address] Dr. Dank Lovelace MCHC (RBC) [Mass/Vol] 34.0 g/dL Normal 29.9-35.2 [facility] Comment on above: Performed By: #### L IPA, MG, CMP #### [facility] [address] [address] [address] Dank Lovelace MCV (RBC) [Entitic vol] 92.6 fL Normal 81.0-99.0 [facility] Comment on above: Performed By: #### L IPA, MG, CMP #### [facility] [address] [address] [address] Dank Lovelace MONO # 0.7 103/ul Normal 0.3-0.8 [facility] Comment on above: Performed By: #### L IPA, MG, CMP #### [facility] [address] [place] [address] Dr. Dank Lovelace Monocytes/100 WBC (Bld) 7.1 % Normal 1.7-12.0 [facility] Comment on above: Performed By: #### L IPA, MG, CMP #### [facility] [address] [place] [address] Dr. Dank Lovelace NEUT # 8.5 103/ul Critically high 1.4-6.5 [facility] Comment on above: Performed By: #### L IPA, MG, CMP #### [facility] [address] [place] [address] Dr. Dank Lovelace Neutrophils/100 WBC (Bld) 84.7 % Critically high 43.0-75.0 [facility] Comment on above: Performed By: #### L IPA, MG, CMP #### [facility] [address] [place] [address] Dr. Dank Lovelace Platelet mean volume (Bld) [Entitic vol] 10.3 fL Normal 9.5-13.5 [facility] Comment on above: Performed By: #### L IPA, MG, CMP #### [facility] [address] [place] [address] Dr. Dank Lovelace PLT 247 103/ul Normal 150-450 [facility] Comment on above: Performed By: #### L IPA, MG, CMP #### [facility] [address] [place] [address] Dr. Dank Lovelace RBC 4.48 106/ul Normal 4.20-5.40 [facility] Comment on above: Performed By: #### L IPA, MG, CMP #### [facility] [address] [place], [place] [address] Dr. Dank Lovelace WBC 10.1 103/ul Normal 4.0-11.0 [facility] Comment on above: Performed By: #### L IPA, MG, CMP #### [facility] [address] [place], [place] [address] ABD/PELVIS WO CONon [...] ovarian cyst in a postmenopausal female. Outpatient MEDIA MONITOR consultation may help better delineate. 5. Nonobstructing left-sided nephrocalcinosis. 6. Otherwise unremarkable noncontrast CT of the abdomen and pelvis for acute pathology. Electronically authenticated by: JENA WEN Date: 2022-09-28 21:24 Normal [facility] CULTURE BLOODon 09-28-2022 Microscopic examination of blood, culture Culture Observations: NO GROWTH AT 5 DAYS. Normal [facility] Comment on above: Performed By: #### L IPA MG, CMP #### [facility] [address] [place] [address] [id number] [address] Dank Lovelace Covid-19 PCR ([facility])on 09-17 SARS-CoV-2 (COVID-19) RNA RAVIN+probe Ql (Unsp spec) Not detected Normal NOT DETECTED [facility] Comment on above: Result Comment: When [...] for this test is supported by the [place] of Health and Human Service's declaration that [...] By: #### L IPA, MG, CMP #### [facility] [address] [place], [place] [address] Dr. Dank Lovelace ER URINE PROFILEon 3 Bilirubin Ql (U) SMALL Abnormal NEGATIVE [facility] Comment on above: Performed By: #### L IPA, MG, CMP #### [facility] [address] [address] [address] Dank Lovelace Clarity (U) CLEAR Normal CLEAR [facility] Comment on above: Performed By: #### L IPA, MG, CMP #### [facility] [address] [address] [address] Dank Lovelace Color (U) DK. YELLOW Normal YELLOW [facility] Comment on above: Performed By: #### L IPA, MG, CMP #### [facility] [address] [place] [address] Dr. Dank Lovelace ERUAHNick A micrscopic examination will be performed if indicated. Normal [facility] Comment on above: Performed By: #### L IPA, MG, CMP #### [facility] [address] [place] [address] Dr. Dank Lovelace Glucose Ql (U) Negative Normal NEGATIVE [facility] Comment on above: Performed By: #### L IPA, MG, CMP #### [facility] [address] [place] [address] Dr. Dank Lovelace Hemoglobin Ql (U) Negative Normal NEGATIVE [facility] Comment on above: Performed By: #### L IPA, MG, CMP #### [facility] [address] [place] [address] Dr. Dank Lovelace Ketones Ql (U) Negative Normal NEGATIVE [facility] Comment on above: Performed By: #### L IPA, MG, CMP #### [facility] [address] [place] [address] Dr. Dank Lovelace LEUKOCYTES Negative Normal NEGATIVE [facility] Comment on above: Performed By: #### L IPA, MG, CMP #### [facility] [address] [place] [address] Dr. Dank Lovelace Nitrite Ql (U) Negative Normal NEGATIVE [facility] Comment on above: Performed By: #### L IPA, MG, CMP #### [facility] [address] [place] [address] Dr. Dank Lovelace pH (U) 5.5 [pH] Normal 5-9 [facility] Comment on above: Performed By: #### L IPA, MG, CMP #### [facility] [address] [place] [address] Dr. Dank Lovelace SPEC GRAVITY 1.025 Normal 1.005-<=1.02 5 [facility] Comment on above: Performed By: #### L IPA, MG, CMP #### [facility] [address] [place] [address] Dr. Dank Lovelace UA PROTEIN TRACE Normal NEGATIVE/ TRACE [facility] Comment on above: Performed By: #### L IPA, MG, CMP #### [facility] [address] [place] [address] Dr. Dank Lovelace UR MICRO IND NOT INDICATED Normal [facility] Comment on above: Performed By: #### L IPA, MG, CMP #### [facility] [address] [place] [address] Dr. Dank Lovelace Urobilinogen Qn (U) 0.2 {Simon'U}/dL Normal 0.2 - 1. 0 [facility] Comment on above: Performed By: #### L IPA, MG, CMP #### [facility] [address] [place] [address] Dr. Dank Lovelace GI PANEL (PCR)on 09-28-2022 Adenovirus F 40/41 Not detected Normal NOT DETECTED [facility] Comment on above: Performed By: #### G IPANEL #### [facility] [address] [place] [address] Dr. Dank Lovelace Astrovirus Not detected Normal NOT DETECTED [facility] Comment on above: Performed By: #### G IPANEL #### [facility] [address] [place] [address] Dr. Dank Lovelace C. Diff toxin A/B Detected Critically abnormal NOT DETECTED [facility] Comment on above: Performed By: #### G IPANEL #### [facility] [address] [place] [address] Dr. Dank Lovelace Campylobacter Not detected Normal NOT DETECTED [facility] Comment on above: Performed By: #### G IPANEL #### [facility] [address] [place] [address] Dr. Dank Lovelace Cryptosporidium Not detected Normal NOT DETECTED [facility] Comment on above: Performed By: #### G IPANEL #### [facility] [address] [place] [address] Dr. Dank Lovelace Cyclos. Cayetanensis Not detected Normal NOT DETECTED [facility] Comment on above: Performed By: #### G IPANEL #### [facility] [address] [place] [address] Dr. Dank Lovelace E. Coli O157 Not Applicable Normal Not Applicable [facility] Comment on above: Performed By: #### G IPANEL #### [facility] [address] [place] [address] Dr. Dank Lovelace E. histolytica Not detected Normal NOT DETECTED [facility] Comment on above: Performed By: #### G IPANEL #### [facility] [address] [place] [address] Dr. Dank Lovelace EAEC Not detected Normal NOT DETECTED [facility] Comment on above: Performed By: #### G IPANEL #### [facility] [address] [place] [address] Dr. Dank Lovelace EIEC Not detected Normal NOT DETECTED [facility] Comment on above: Performed By: #### G IPANEL #### [facility] [address] [place] [address] Dr. Dank Lovelace EPEC Not detected Normal NOT DETECTED [facility] Comment on above: Performed By: #### G IPANEL #### [facility] [address] [place] [address] Dr. Dank Lovelace ETEC Not detected Normal NOT DETECTED [facility] Comment on above: Performed By: #### G IPANEL #### [facility] [address] [place] [address] Dr. Dank Mcghee. Lamblia Not detected Normal NOT DETECTED [facility] Comment on above: Performed By: #### G IPANEL #### [facility] [address] [place] [address] Dr. Yilan Lovelace GIPANEL CONTROLS PASSED Normal [facility] Comment on above: Performed By: #### G IPANEL #### [facility] [address] [address] [address] Dank LEONE HEADER GI PANEL BACTERIA Normal T [facility] Comment on above: Performed By: #### G IPANEL #### [facility] [address] [address] [address] Dank DOTSON ECOLI GI PANEL DIARRHEAGEN IC E.COLI / SHIGELLA Normal [facility] Comment on above: Performed By: #### G IPANEL #### [facility] [address] [address] [address] Dank DOTSON INFO SEE BELOW Normal [facility] Comment on above: Result Comment: EAEC - Enteroaggregative E. Coli EPEC- Enteropathogenic E. Coli ETEC- Enterotoxigenic E. Coli lt/st STEC- Shigella-like toxin-producing E. Coli stx1/stx2 EIEC- Shigella/Enteroinvasive E. Coli Performed By: #### G IPANEL #### [facility] [address] [address] [address] Dank DOTSON PARASITES GI PANEL PARASITES Normal [facility] Comment on above: Performed By: #### G IPANEL #### [facility] [address] [address] [address] Dank DOTSON VIRUS GI PANEL VIRUSES Normal [facility] Comment on above: Performed By: #### G IPANEL #### [facility] [address] [address] [address] Dank Lovelace Norovirus GI/GII Detected Abnormal NOT DETECTED [facility] Comment on above: Performed By: #### G IPANEL #### [facility] [address] [address] [address] Dank Lovelace P. Shigelloides Not detected Normal NOT DETECTED [facility] Comment on above: Performed By: #### G IPANEL #### [facility] [address] [address] [address] Dank Lovelace Rotavirus A Not detected Normal NOT DETECTED [facility] Comment on above: Performed By: #### G IPANEL #### [facility] [address] [address] [address] Dank Lovelace Sapovirus Not detected Normal NOT DETECTED [facility] Comment on above: Performed By: #### G IPANEL #### [facility] [address] [place] [address] Dr. Dank Lovelace STEC Not detected Normal NOT DETECTED [facility] Comment on above: Performed By: #### G IPANEL #### [facility] [address] [place] [address] Dr. Dank Lovelace Vibrio Not detected Normal NOT DETECTED [facility] Comment on above: Performed By: #### G IPANEL #### [facility] [address] [place] [address] Dr. Dank Lovelace Vibrio Cholera Not detected Normal NOT DETECTED [facility] Comment on above: Performed By: #### G IPANEL #### [facility] [address] [place] [address] Dr. Dank Lovelace Y. Enterocolitica Not detected Normal NOT DETECTED [facility] Comment on above: Performed By: #### G IPANEL #### [facility] [address] [place] [address] Dr. Dank Lovelace Salmonella Not detected Normal NOT DETECTED [facility] Comment on above: Performed By: #### G IPANEL #### [facility] [address] [place] [address] Dr. Dank Lovelace Performed By: #### L IPA, MG, CMP #### [facility] [address] [place] [address] Dr. Dank Lovelace INFLUENZA A AND B AGon 09-28 INFLUENZA A AG Negative Normal NEGATIVE [facility] [facility] Comment on above: Performed By: #### L IPA, MG, CMP #### [facility] [address] [place] [address] Dr. Dank Lovelace INFLUENZA B AG Negative Normal NEGATIVE SEE COMMENT [facility] Comment on above: Performed By: #### L IPA, MG, CMP #### [facility] [address] [place] [address] Dr. Dank Lovelace LACTATE/LACTIC ACIDon 2022 Lactate [Moles/Vol] 2.2 mmol/L Critically high 0.4-1.9 [facility] Comment on above: Performed By: #### L IPA, MG, CMP #### [facility] [address] [place] [address] Dr. Dank Lovelace LIPASEon 09-28-2022 Lipase [Catalytic activity/Vol] 36.0 U/L Critically low 73.0-393.0 [facility] Comment on above: Performed By: #### C MP, LIPA, TSH, BNP, CMADM #### [facility] [address] [place] [address] Dr. Dank Lovelace PROF 14(COMP METB)on 023 Albumin [Mass/Vol] 3.7 g/dL Normal 3.4-5.0 [facility] Comment on above: Performed By: #### C MP, LIPA, TSH, BNP, CMADM #### [facility] [address] [place] [address] Dr. Dank Lovelace Albumin/Globulin [Mass ratio] 1.1 {ratio} Normal [facility] Comment on above: Performed By: #### C MP, LIPA, TSH, BNP, CMADM #### [facility] [address] [place] [address] Dr. Dank Lovelace ALP [Catalytic activity/Vol] 110 U/L Normal 46-116 [facility] Comment on above: Performed By: #### C MP, LIPA, TSH, BNP, CMADM #### [facility] [address] [place] [address] Dr. Dank Lovelace ALT [Catalytic activity/Vol] 33 U/L Normal 14-59 [facility] Comment on above: Performed By: #### C MP, LIPA, TSH, BNP, CMADM #### [facility] [address] [place] [address] Dr. Dank Lovelace Anion gap [Moles/Vol] 20.3 mmol/L Normal [facility] Comment on above: Performed By: #### C MP, LIPA, TSH, BNP, CMADM #### [facility] [address] [place] [address] Dr. Dank Lovelace AST [Catalytic activity/Vol] 31 U/L Normal 15-37 [facility] Comment on above: Performed By: #### C MP, LIPA, TSH, BNP, CMADM #### [facility] [address] [place] [address] Dr. Dank Lovelace Bilirubin [Mass/Vol] 0.9 mg/dL Normal 0.2-1.0 [facility] Comment on above: Performed By: #### C MP, LIPA, TSH, BNP, CMADM #### [facility] [address] [place] [address] Dr. Dank Lovelace Calcium [Mass/Vol] 9.2 mg/dL Normal 8.5-10.1 [facility] Comment on above: Performed By: #### C MP, LIPA, TSH, BNP, CMADM #### [facility] [address] [place] [address] Dr. Dank Lovelace Chloride [Moles/Vol] 105 mmol/L Normal 98-107 [facility] Comment on above: Performed By: #### C MP, LIPA, TSH, BNP, CMADM #### [facility] [address] [place] [address] Dr. Dank Lovelace CO2 [Moles/Vol] 16.6 mmol/L Critically low 21.0-32.0 [facility] Comment on above: Performed By: #### C MP, LIPA, TSH, BNP, CMADM #### [facility] [address] [place] [address] Dr. Dank Lovelace Creatinine [Mass/Vol] 1.27 mg/dL Critically high 0.55-1.02 [facility] Comment on above: Performed By: #### C MP, LIPA, TSH, BNP, CMADM #### [facility] [address] [place] [address] Dr. Dank Lovelace EGFR-AF YEMENI 51 mL/min/1.73m2 Critically low >=60 [facility] Comment on above: Performed By: #### C MP, LIPA, TSH, BNP, CMADM #### [facility] [address] [address] [address] Dank Lovelace EGFR-NON AF YEMENI 42 mL/min/1.73m2 Critically low >=60 [facility] Comment on above: Performed By: #### C MP, LIPA, TSH, BNP, CMADM #### [facility] [address] [address] [address] Dank Lovelace Globulin (S) [Mass/Vol] 3.3 g/dL Normal [facility] Comment on above: Performed By: #### C MP, LIPA, TSH, BNP, CMADM #### [facility] [address] [place] [address] Dr. Dank Lovelace Glucose [Mass/Vol] 125 mg/dL Critically high 74-106 [facility] Comment on above: Performed By: #### C MP, LIPA, TSH, BNP, CMADM #### [facility] [address] [address] [address] Dank Lovelace Potassium [Moles/Vol] 3.9 mmol/L Normal 3.5-5.1 [facility] Comment on above: Performed By: #### C MP, LIPA, TSH, BNP, CMADM #### [facility] [address] [place] [address] Dr. Dank Lovelace Protein [Mass/Vol] 7.0 g/dL Normal 6.4-8.2 [facility] Comment on above: Performed By: #### C MP, LIPA, TSH, BNP, CMADM #### [facility] [address] [place] [address] Dr. Dank Lovelace Sodium [Moles/Vol] 138 mmol/L Normal 136-[address] [facility] Comment on above: Performed By: #### C MP, LIPA, TSH, BNP, CMADM #### [facility] [address] [place] [address] Dr. Dank Lovelace Urea nitrogen [Mass/Vol] 25.0 mg/dL Critically high 7.0-18.0 [facility] Comment on above: Performed By: #### C MP, LIPA, TSH, BNP, CMADM #### [facility] [address] [address] [address] Dank Lovelace Urea nitrogen/Creatinine [Mass ratio] 19.7 mg/mg Normal [facility] Comment on above: Performed By: #### C MP, LIPA, TSH, BNP, CMADM #### [facility] [address] [address] [address] Dank Lovelace TSHon 09-28-2022 TSH 1.091 uIU/mL Normal 0.358-3.740 [facility] Comment on above: Performed By: #### C MP, LIPA, TSH, BNP, CMADM #### [facility] [address] [address] [address] Dank Lovelace XR CHEST 1 Von [...] SENAIT KELSEY Date: 2022-09-28 20:42 Normal [facility] Echocardiogramon 09-17-[address] [address] TRANSTHORACIC ECHOCARDIOGRAM REPORT Patient Name: JESUS Recio Physician: [id number] Yuriy Conway MD, [facility] Study Date: 09/17/2022 Referring YURIY CONWAY Physician: MRN/PID: [id number] PCP: Wojciech Treviño MD Accession/Order#: [id number] Department [facility] Location: Date of : 1955 Fellow: Gender: F Nurse: Rima Nesbitt RN Admit Date: Apron Worker: Yulia Ayers RDCS, RVT Height: 170.18 cm CC Report to: Weight: 112.04 kg Study Type: Echocardiogram BSA: 2.21 m2 Blood Pressure: 114 /72 mmHg Diagnosis/ICD: I48.0-Paroxysmal atrial fibrillation; I71.20-Thoracic aortic aneurysm, without rupture, unspecified Indication: Atrial Fibrillation/Flutter-s /p Ablation, HTN, Hyperlipidemia, Lupus, MONI, Obesity, Hyperparatyroid Disease-s/p Resection Procedure/CPT: Echo Complete w Full Doppler-[id number] Study Detail: The following Echo studies were [...] 0.7 m/s (0.6-0.9m/s) PV Max P.0 mmHg [id number] Yuriy Conway MD, [facility] Electronically signed on 09/18/2022 at 5:16:24 PM Final Normal [facility] Covid-19 PCR (CVDTBH)on SARS-CoV-2 (COVID-19) RNA RAVIN+probe Ql (Unsp spec) Not detected Normal NOT DETECTED [facility] Comment on above: Result Comment: This test is not yet approved or cleared by the [place] FDA. When there are no FDA-approved or cleared tests available, and other criteria are met, FDA can make tests available under an emergency access mechanism called an Emergency Use Authorization (EUA). The EUA for this test is supported by the Senior Software Engineering Manager of Health and Human Service's (HHS's) declaration [...] By: #### L AMY MG, CMP #### [facility] [address] [place] [address] Dr. Dank Lovelace [facility] CARDIAC STRESS/REST INJE CTIONon 08-15-2022 [facility] CARDIAC STRESS/REST INJECTION Patient Name: LUCIANO JESUS STUDY: MYOCARDIAL PERFUSION STRESS TEST WITH LEXISCAN Performing facility: [facility], [address], [address], [place] [address] [facility] Provider: Yuriy Conway MD, [facility] PCP: Dr. Treviño Supervising provider: Dennise Danielson INDICATION: HTN Hyperlipidemia A-fib Pre-operative risk assessment for Parathyroid scheduled at [facility] on 08-27-22. HISTORY: Gender: F; Age: 67 y/o ; Height: 170.1 cm; Weight: 123.1 kg. High Cholesterol; Arrhythmias; HTN; Lupus Denies smoking. COMPARISON: No comparison. ACCESSION NUMBER(S): [id number]; [id number]; [id number] ORDERING CLINICIAN: YURIY CONWAY TECHNIQUE: TWO DAY protocol. Stress injection: Date:08-15-22, 34.5 mCi of Myoview IV 20 seconds after rapid injection of Lexiscan. Rest injection: Date: 08-22-22, 34.4 mCi of Myoview IV at rest. The patient had a rapid injection of 0.4 mg of Lexiscan IV over 10 seconds. Imaging was performed by gated tomographic technique. Reason for Lexiscan: dizziness/unsteady/fal l risk STRESS TEST DATA: Resting heart rate [...] comparison. Electronically signed by: ALINE SOUZA MD [facility] No Panel Informationon 08-15 Normal -[facility] Work Phone: Office Visit (Cardiology)on 08-01-2022 Follow-up visit Diagnoses/Problems [...] Paroxysmal atrial fibrillation Echocardiogram; Status:Hold For - Scheduling,Retrospecti ve Authorization; Requested for:[id number]; Class 2 severe obesity with serious comorbidity and body mass index (BMI) of 38.0 to 38.9 in adult Healthy Weight Tips; Status:Complete - Retrospective Authorization; Done: [id number] Some eating tips that can help you lose weight.; Status:Complete - Retrospective Authorization; Done: [id number] Essential hypertension, benign, Hyperlipidemia, Paroxysmal atrial fibrillation, Preoperative clearance NM Cardiac Stress/Rest Nuclear Med Order; Status:Hold For - Scheduling,Retrospecti ve Authorization; Requested for:[id number]; Radiologist to Determine Optimal Study : Y What are the patient's signs and symptoms? : preop, paf, hdl, htn Paroxysmal atrial fibrillation IO EKG Electrocardiogram- 12 Lead; Status:Complete; Done: [id number] SocHx: Never a smoker Tobacco Use Screening; Status:Complete; Done: [id number] Patient Instructions Please bring all medicines, vitamins, [...] scheduled in August for parathyroid surgery at [facility], they will be faxing request for clearance. Follow up in 1 year. Chief Complaint JESUS WOLF is being seen for an annual follow-up of. Patient is in the office after more than 2 years hiatus where she follows with the [facility] cardiology. She is in need for cardiac clearance prior to surgery. The patient has done well in the last couple of years but was not very happy with the care she was receiving at the [facility]. She had ablation for atrial fibrillation couple years back at [facility] with Dr. Chino with no recurrences. She is not on antiarrhythmic therapy but has been on anticoagulation with Eliquis. She has no indication previous coronary heart disease but never had a stress test or cardiac catheterization. Her last echocardiogram from September 2021 at the [facility] revealed mildly dilated ascending aorta at 4.6 [...] radiofrequency ablation with pulmonary vein isolation at [facility] in 2019. She will continue on Eliquis [...] 8. Systemic Lupus managed by rheumatology at [facility] on multiple medications and stable 9. Hypercalcemia [...] past medication was advised. Yuriy Conway MD, [facility] Surgical History Problems History of Appendectomy History of Cyst excision History of Foot surgery History of Hip replacement History of Tonsillectomy Past Medical History Problems History of Diastolic heart failure (428.30) (I5 (more content not included)... Normal [employer] Tobacco Screening.on 022 Adult depression screening assessment No -[facility] [employer] [place] [address] DO Work Phone: Fall risk assessment a) No falls within the last year [facility] [email or web address] [place] [address] DO Work Phone: Tobacco use status CPHS b) No M -[facility] [employer] [place] [address] DO Work Phone: No Panel Informationon 07-07 [facility] Comprehensive metabolic 2000 panelon 06-12-2022 Albumin [Mass/Vol] 4.2 g/dL 3.9 - 4.9 g/dL [facility] ALP [Catalytic activity/Vol] 134 U/L High 34 - 123 U/L [facility] ALT [Catalytic activity/Vol] 20 U/L 7 - 38 U/L [facility] Anion gap [Moles/Vol] 11 mmol/L 9 - 18 mmol/L [facility] AST [Catalytic activity/Vol] 23 U/L 13 - 35 U/L [facility] Bilirubin [Mass/Vol] 0.5 mg/dL 0.2 - 1 .3 mg/dL [facility] Calcium [Mass/Vol] 10.4 mg/dL High 8.5 - 10. 2 mg/dL [facility] Chloride [Moles/Vol] 109 mmol/L High 97 - 10 5 mmol/L [facility] CO2 [Moles/Vol] 22 mmol/L 22 - 30 mmol/L [facility] Creatinine [Mass/Vol] 1.27 mg/dL High 0.58 - 0.96 mg/dL [facility] Estimated Glomerular Filtration Rate 47 mL/min/1.73m Low >=60 mL/min/1.73m [facility] Glucose [Mass/Vol] 104 mg/dL High 74 - 99 mg/dL [facility] Potassium [Moles/Vol] 5.6 mmol/L High 3.7 - 5.1 mmol/L [facility] Protein [Mass/Vol] 5.8 g/dL Low 6.3 - 8.0 g/dL [facility] Sodium [Moles/Vol] 142 mmol/L 136 - 144 mmol/L [facility] Urea nitrogen [Mass/Vol] 33 mg/dL High 7 - 21 mg/dL [facility] PTH INTACT BLDon 06-12-2022 Parathyrin.intact [Mass/Vol] 89 pg/mL High 15 - 65 pg/mL [facility] 1,25-dihydroxyvitamin D3 [Ma ss/Vol]on 04-22-2022 1,25 Dihydroxy Vitamin Total 35.6 pg/mL 19.9 - 79.3 pg/mL [facility] VITAMIN D 25 HYDROXYon 04-22 25-hydroxyvitamin D3 [Mass/Vol] 58.2 ng/mL 31.0 - 80.0 ng/mL [facility] PTH INTACT BLDon 04-18-2022 Parathyrin.intact [Mass/Vol] 83 pg/mL High 15 - 65 pg/mL [facility] DXA-AXIAL SKELETONon 022 LOWEST T-SCORE -2.1 [facility] 2019 NOVEL CORONAVIRUS (COVI D-19)on 03-13-2022 SARS-CoV-2 (COVID-19) RNA RAVIN+probe Ql (Unsp spec) Negative [facility] CBC W Auto Differential pane l (Bld)on 03-13-2022 Abs Immature Gran <0.03 <0.10 k/uL [facility] Basophils (Bld) [#/Vol] 0.06 10*3/uL <0.11 k/uL [facility] Basophils/100 WBC (Bld) 0.9 % [facility] Differential cell count method Nom (Bld) Auto [facility] Eosinophils (Bld) [#/Vol] 0.31 10*3/uL <0.46 k/uL [facility] Eosinophils/100 WBC (Bld) 4.5 % [facility] Erythrocyte distribution width (RBC) [Ratio] 12.4 % 11.5 - 15.0 % [facility] Hematocrit (Bld) [Volume fraction] 41.8 % 36.0 - 46.0 % [facility] Hemoglobin (Bld) [Mass/Vol] 13.8 g/dL 11.5 - 15.5 g/dL [facility] Immature Gran % 0.3 % [facility] Lymphocytes (Bld) [#/Vol] 2.00 10*3/uL 1.00 - 4.00 k/uL [facility] Lymphocytes/100 WBC (Bld) 29.2 % [facility] MCH (RBC) [Entitic mass] 32.5 pg 26.0 - 34.0 pg [facility] MCHC (RBC) [Mass/Vol] 33.0 g/dL 30.5 - 36.0 g/dL [facility] MCV (RBC) [Entitic vol] 98.4 fL 80.0 - 100.0 fL [facility] Monocytes (Bld) [#/Vol] 0.94 10*3/uL High <0.87 k/uL [facility] Monocytes/100 WBC (Bld) 13.7 % [facility] Neutrophils (Bld) [#/Vol] 3.52 10*3/uL 1.45 - 7.50 k/uL [facility] Neutrophils/100 WBC (Bld) 51.4 % [facility] Nucleated RBC (Bld) [#/Vol] 10*3/uL <0.01 k/uL [facility] Nucleated RBC/100 WBC (Bld) [Ratio] 0.0 /100 WBC [facility] Platelet mean volume (Bld) [Entitic vol] 10.5 fL 9.0 - 12.7 fL [facility] Platelets (Bld) [#/Vol] 254 10*3/uL 150 - 400 k/uL [facility] RBC (Bld) [#/Vol] 4.25 10*6/uL 3.90 - 5.2 0 m/uL [facility] WBC (Bld) [#/Vol] 6.85 10*3/uL 3.70 - 11. 00 k/uL [facility] Comprehensive metabolic 2000 panelon 03-13-2022 Albumin [Mass/Vol] 4.3 g/dL 3.9 - 4.9 g/dL [facility] ALP [Catalytic activity/Vol] 112 U/L 34 - 123 U/L [facility] ALT [Catalytic activity/Vol] 30 U/L 7 - 38 U/L [facility] Anion gap [Moles/Vol] 10 mmol/L 9 - 18 mmol/L [facility] AST [Catalytic activity/Vol] 32 U/L 13 - 35 U/L [facility] Bilirubin [Mass/Vol] 0.6 mg/dL 0.2 - 1 .3 mg/dL [facility] Calcium [Mass/Vol] 11.0 mg/dL High 8.5 - 10. 2 mg/dL [facility] Chloride [Moles/Vol] 105 mmol/L 97 - 10 5 mmol/L [facility] CO2 [Moles/Vol] 23 mmol/L 22 - 30 mmol/L [facility] Creatinine [Mass/Vol] 1.01 mg/dL High 0.58 - 0.96 mg/dL [facility] Estimated Glomerular Filtration Rate 62 mL/min/1.73m >=60 mL/min/1.73m [facility] Glucose [Mass/Vol] 86 mg/dL 74 - 99 mg/dL [facility] Potassium [Moles/Vol] 5.0 mmol/L 3.7 - 5.1 mmol/L [facility] Protein [Mass/Vol] 6.4 g/dL 6.3 - 8.0 g/dL [facility] Sodium [Moles/Vol] 138 mmol/L 136 - 144 mmol/L [facility] Urea nitrogen [Mass/Vol] 25 mg/dL High 7 - 21 mg/dL [facility] ESR Westergren method (Bld) [Velocity]on 03-13-2022 ESR (Bld) [Velocity] 10 mm/h 0 - 20 mm/hr [facility] - Chemistry and C hemistry - challengeon 03-13-2022 CRP [Mass/Vol] 0.4 mg/dL <0.9 mg/dL [facility] - Hematology and Cell countson 03-13-2022 Complement C3 [Mass/Vol] 167 mg/dL High 86 - 166 mg/dL [facility] Complement C4 [Mass/Vol] 38 mg/dL 13 - 46 mg/dL [facility] CBC AUTO DIFFon 02-13-2022 BASO # 0.1 103/ul Normal 0.0-0.1 [facility] Comment on above: Performed By: #### L IPA, MG, CMP #### [facility] [address] [address] [address] Dank Lovelace Basophils/100 WBC (Bld) 0.4 % Normal 0.2-2.0 [facility] Comment on above: Performed By: #### L IPA, MG, CMP #### [facility] [address] [place] [address] Dr. Dank Lovelace EO # 0.2 103/ul Normal 0.0-0.7 [facility] Comment on above: Performed By: #### L IPA, MG, CMP #### [facility] [address] [place] [address] Dr. Dank Lovelace Eosinophils/100 WBC (Bld) 2.0 % Normal 0.9-7.0 [facility] Comment on above: Performed By: #### L IPA, MG, CMP #### [facility] [address] [place] [address] Dr. Dank Lovelace Erythrocyte distribution width (RBC) [Ratio] 12.1 % Normal 11.0-15.0 [facility] Comment on above: Performed By: #### L IPA, MG, CMP #### [facility] [address] [place] [address] Dr. Dank Lovelace Hematocrit (Bld) [Volume fraction] 48.6 % Critically high 36.0-48.0 [facility] Comment on above: Performed By: #### L IPA, MG, CMP #### [facility] [address] [place] [address] Dr. Dank Lovelace Hemoglobin (Bld) [Mass/Vol] 16.2 g/dL Critically high 12.0-16.0 [facility] Comment on above: Performed By: #### L IPA, MG, CMP #### [facility] [address] [place] [address] Dr. Dank Lovelace IG # 0.06 10e3/ul Critically high 0.00-0.03 [facility] Comment on above: Performed By: #### L IPA, MG, CMP #### [facility] [address] [place] [address] Dr. Dank Lovelace IG % 0.5 % Normal 0.0-0.5 [facility] Comment on above: Performed By: #### L IPA, MG, CMP #### [facility] [address] [place] [address] Dr. Dank Lovelace LYMPH # 1.9 103/ul Normal 1.2-3.8 [facility] Comment on above: Performed By: #### L IPA, MG, CMP #### [facility] [address] [place] [address] Dr. Dank Lovelace Lymphocytes/100 WBC (Bld) 16.0 % Critically low 20.5-60.0 [facility] Comment on above: Performed By: #### L IPA, MG, CMP #### [facility] [address] [place] [address] Dr. Dank Lovelace MANUAL DIFF REQ NO Normal [facility] Comment on above: Performed By: #### L IPA, MG, CMP #### [facility] [address] [place] [address] Dr. Dank Lovelace MCH (RBC) [Entitic mass] 32.3 pg Normal 26.7-34.0 [facility] Comment on above: Performed By: #### L IPA, MG, CMP #### [facility] [address] [place] [address] Dr. Dank Lovelace MCHC (RBC) [Mass/Vol] 33.3 g/dL Normal 29.9-35.2 [facility] Comment on above: Performed By: #### L IPA, MG, CMP #### [facility] [address] [place] [address] Dr. Dank Lovelace MCV (RBC) [Entitic vol] 97.0 fL Normal 81.0-99.0 [facility] Comment on above: Performed By: #### L IPA, MG, CMP #### [facility] [address] [place] [address] Dr. Dank Lovelace MONO # 1.3 103/ul Critically high 0.3-0.8 [facility] Comment on above: Performed By: #### L IPA, MG, CMP #### [facility] [address] [place] [address] Dr. Dank Lovelace Monocytes/100 WBC (Bld) 11.2 % Normal 1.7-12.[address] [facility] Comment on above: Performed By: #### L IPA, MG, CMP #### [facility] [address] [place] [address] Dr. Dank Lovelace NEUT # 8.2 103/ul Critically high 1.4-6.5 [facility] Comment on above: Performed By: #### L IPA, MG, CMP #### [facility] [address] [place] [address] Dr. Dank Lovelace Neutrophils/100 WBC (Bld) 69.9 % Normal 43.0-75.0 [facility] Comment on above: Performed By: #### L IPA, MG, CMP #### [facility] [address] [place] [address] Dr. Dank Lovelace Platelet mean volume (Bld) [Entitic vol] 10.0 fL Normal 9.5-13.5 [facility] Comment on above: Performed By: #### L IPA, MG, CMP #### [facility] [address] [place] [address] Dr. Dank Lovelace PLT 317 103/ul Normal 150-450 [facility] Comment on above: Performed By: #### L IPA, MG, CMP #### [facility] [address] [place] [address] Dr. Dank Lovelace RBC 5.01 106/ul Normal 4.20-5.40 [facility] Comment on above: Performed By: #### L IPA, MG, CMP #### [facility] [address] [place] [address] Dr. Dank Lovelace WBC 11.7 103/ul Critically high 4.0-11.0 [facility] Comment on above: Performed By: #### L IPA, MG, CMP #### [facility] [address] [place] [address] Dr. Dank Lovelace ER URINE PROFILEon 2 Bilirubin Ql (U) Negative Normal NEGATIVE [facility] Comment on above: Performed By: #### E RUR #### [facility] [address] [place] [address] Dr. Dank Lovelace Clarity (U) CLEAR Normal CLEAR [facility] Comment on above: Performed By: #### E RUR #### [facility] [address] [place] [address] Dr. Dank Lovelace Color (U) LT. YELLOW Normal YELLOW [facility] Comment on above: Performed By: #### E RUR #### [facility] [address] [place] [address] Dr. Dank Lovelace ERUAHD A micrscopic examination will be performed if indicated. Normal [facility] Comment on above: Performed By: #### E RUR #### [facility] [address] [place] [address] Dr. Dank Lovelace Glucose Ql (U) Negative Normal NEGATIVE [facility] Comment on above: Performed By: #### E RUR #### [facility] [address] [place] [address] Dr. Dank Lovelace Hemoglobin Ql (U) Negative Normal NEGATIVE [facility] Comment on above: Performed By: #### E RUR #### [facility] [address] [place] [address] Dr. Dank Lovelace Ketones Ql (U) Negative Normal NEGATIVE [facility] Comment on above: Performed By: #### E RUR #### [facility] [address] [place] [address] Dr. Dank Lovelace LEUKOCYTES Negative Normal NEGATIVE [facility] Comment on above: Performed By: #### E RUR #### [facility] [address] [place] [address] Dr. Dank Lovelace Nitrite Ql (U) Negative Normal NEGATIVE [facility] Comment on above: Performed By: #### E RUR #### [facility] [address] [place] [address] Dr. Dank Lovelace pH (U) 5.5 [pH] Normal 5-9 [facility] Comment on above: Performed By: #### E RUR #### [facility] [address] [place] [address] Dr. Dank Lovelace SPEC GRAVITY 1.015 Normal 1.005-<=1.02 5 [facility] Comment on above: Performed By: #### E RUR #### [facility] [address] [place] [address] Dr. Dank Lovelace UA PROTEIN Negative Normal NEGATIVE/ TRACE [facility] Comment on above: Performed By: #### E RUR #### [facility] [address] [place] [address] Dr. Dank Lovelace UR MICRO IND NOT INDICATED Normal [facility] Comment on above: Performed By: #### E RUR #### [facility] [address] [place] [address] Dr. Dank Lovelace Urobilinogen Qn (U) 0.2 {Siomn'U}/dL Normal 0.2 - 1. 0 [facility] Comment on above: Performed By: #### E RUR #### [facility] [address] [place] [address] Dr. Dank Lovelace LIPASEon 02-13-2022 Lipase [Catalytic activity/Vol] 39.0 U/L Critically low 73.0-393.0 [facility] Comment on above: Performed By: #### L IPA, MG, CMP #### [facility] [address] [place] [address] Dr. Dank Lovelace MAGNESIUMon 02-13-2022 Magnesium [Mass/Vol] 1.4 mg/dL Critically low 1.8-2.4 [facility] Comment on above: Performed By: #### L IPA, MG, CMP #### [facility] [address] [place] [address] Dr. Dank Lovelace PROF 14(COMP METB)on 022 Albumin [Mass/Vol] 3.8 g/dL Normal 3.4-5.0 [facility] Comment on above: Performed By: #### L IPA, MG, CMP #### [facility] [address] [place] [address] Dr. Dank Lovelace Albumin/Globulin [Mass ratio] 0.9 {ratio} Normal [facility] Comment on above: Performed By: #### L IPA, MG, CMP #### [facility] [address] [address] [address] Dank Lovelace ALP [Catalytic activity/Vol] 150 U/L Critically high 46-116 [facility] Comment on above: Performed By: #### L IPA, MG, CMP #### [facility] [address] [place] [address] Dr. Dank Lovelace ALT [Catalytic activity/Vol] 31 U/L Normal 14-59 [facility] Comment on above: Performed By: #### L IPA, MG, CMP #### [facility] [address] [place] [address] Dr. Dank Lovelace Anion gap [Moles/Vol] 16.4 mmol/L Normal [facility] Comment on above: Performed By: #### L IPA, MG, CMP #### [facility] [address] [place] [address] Dr. Dank Lovelace AST [Catalytic activity/Vol] 18 U/L Normal 15-37 [facility] Comment on above: Performed By: #### L IPA, MG, CMP #### [facility] [address] [place] [address] Dr. Dank Lovelace Bilirubin [Mass/Vol] 0.4 mg/dL Normal 0.2-1.0 [facility] Comment on above: Performed By: #### L IPA, MG, CMP #### [facility] [address] [place] [address] Dr. Dank Lovelace Calcium [Mass/Vol] 11.7 mg/dL Critically high 8.5-10.1 [facility] Comment on above: Performed By: #### L IPA, MG, CMP #### [facility] [address] [place] [address] Dr. aDnk Lovelace Chloride [Moles/Vol] 103 mmol/L Normal 98-107 [facility] Comment on above: Performed By: #### L IPA, MG, CMP #### [facility] [address] [place] [address] Dr. Dank Lovelace CO2 [Moles/Vol] 20.4 mmol/L Critically low 21.0-32.0 [facility] Comment on above: Performed By: #### L IPA, MG, CMP #### [facility] [address] [address] [address] Dank Lovelace Creatinine [Mass/Vol] 1.14 mg/dL Critically high 0.55-1.02 [facility] Comment on above: Performed By: #### L IPA, MG, CMP #### [facility] [address] [address] [address] Dank Lovelace EGFR-AF YEMENI 58 mL/min/1.73m2 Critically low >=60 [facility] Comment on above: Performed By: #### L IPA, MG, CMP #### [facility] [address] [place] [address] Dr. Dank Lovelace EGFR-NON AF YEMENI 48 mL/min/1.73m2 Critically low >=60 [facility] Comment on above: Performed By: #### L IPA, MG, CMP #### [facility] [address] [place] [address] Dr. Dank Lovelace Globulin (S) [Mass/Vol] 4.4 g/dL Normal [facility] Comment on above: Performed By: #### L IPA, MG, CMP #### [facility] [address] [address] [address] Dank Lovelace Glucose [Mass/Vol] 124 mg/dL Critically high 74-106 [facility] Comment on above: Performed By: #### L IPA, MG, CMP #### [facility] [address] [address] [address] Dank Lovelace Potassium [Moles/Vol] 4.8 mmol/L Normal 3.5-5.1 [facility] Comment on above: Performed By: #### L IPA, MG, CMP #### [facility] [address] [address] [address] Dank Lovelace Protein [Mass/Vol] 8.2 g/dL Normal 6.4-8.2 [facility] Comment on above: Performed By: #### L IPA, MG, CMP #### [facility] [address] [address] [address] Dank Lovelace Sodium [Moles/Vol] 135 mmol/L Critically low 136-145 [facility] Comment on above: Performed By: #### L IPA, MG, CMP #### [facility] [address] [address] [address] Dank Lovelace Urea nitrogen [Mass/Vol] 28.0 mg/dL Critically high 7.0-18.0 [facility] Comment on above: Performed By: #### L IPA, MG, CMP #### [facility] [address] [address] [address] Dank Lovelace Urea nitrogen/Creatinine [Mass ratio] 24.6 mg/mg Normal [facility] Comment on above: Performed By: #### L IPA, MG, CMP #### [facility] [address] [address] [address] Dank Lovelace Activated partial thrombopla stin time (aPTT) in platelet poor plasma by coagulation aOrdered By: Hussain Cat on 02-08-2022 aPTT Coag (PPP) [Time] 34.7 s 25.1-36.5 [facility] Albumin [Mass/volume] in Ser um or PlasmaOrdered By: Hussain Cat on 02-08-2022 Albumin [Mass/Vol] 3.5 g/dL 3.2-5.5 [facility] Basophils Auto (Bld) [#/Vol] Ordered By: Hussain Cat on 02-08-2022 Basophils (Bld) [#/Vol] 0.0 10*3/uL 0.0-0.2 [facility] Basophils/100 WBC Auto (Bld) Ordered By: Hussain Cat on 02-08-2022 Basophils/100 WBC (Bld) 0.0 % [facility] Blood hemoglobin measurement (mass/volume)Ordered By: Hussain Cat on 02-08-2022 Hemoglobin (Bld) [Mass/Vol] 13.3 g/dL 11.8-15.4 [facility] Blood leukocytes automated c ount (number/volume)Ordered By: Hussain Cat on 02-08-2022 WBC (Bld) [#/Vol] 11.8 10*3/uL 4.5-11.0 [facility] Creatinine and Glomerular fi ltration rate.predicted panel (S/P/Bld)Ordered By: Hussain Cat on 02-08-2022 Creatinine [Mass/Vol] 0.90 mg/dL 0.44-1.03 [facility] Eosinophils Auto (Bld) [#/Vo l]Ordered By: Hussain Cat on 02-08-2022 Eosinophils (Bld) [#/Vol] 0.0 10*3/uL 0.0-0.45 [facility] Eosinophils/100 WBC Auto (Bl d)Ordered By: Hussain Cat on 02-08-2022 Eosinophils/100 WBC (Bld) 0.0 % [facility] Erythrocyte distribution wid th Auto (RBC) [Ratio]Ordered By: Hussain Cat on 02-08-2022 Erythrocyte distribution width (RBC) [Ratio] 13.0 % 11.9-15.3 [facility] Erythrocyte sedimentation ra te by Photometric methodOrdered By: Rachelle Frazier on 02-08-2022 ESR Photometric method (Bld) [Velocity] 40 mm/hr 0-29 [facility] Estimated glomerular filtrat ion rate (GFR) non- AmericanOrdered By: Hussain Cat on 02-08-2022 GFR/1.73 sq M.predicted among non-blacks MDRD (S/P/Bld) [Vol rate/Area] > 60 mL/Min [facility] Folate [Mass/volume] in Seru m or PlasmaOrdered By: Hussain Cat on 02-08-2022 Folate [Mass/Vol] ng/mL >5.9 [facility] Comment on above: Folate reference ran ge: >5.9 ng/ml The WHO technical consultation on folate and vitamin b12 deficiencies has determined that folate concentrations less than 4 ng/ml are considered deficient. Globulin Calc (S) [Mass/Vol] Ordered By: Hussain Cat on 02-08-2022 Globulin (S) [Mass/Vol] 2.7 g/dL [facility] Hematocrit Auto (Bld) [Volum e fraction]Ordered By: Hussain Cat on 02-08-2022 Hematocrit (Bld) [Volume fraction] 39.0 % 34.0-46.4 [facility] - Chemistry and C hemistry - challengeOrdered By: Hussain Cat on 02-08-2022 Cobalamin (Vitamin B12) [Mass/Vol] 486 pg/mL 180-914 [facility] Magnesium [Mass/Vol] 1.4 mg/dL 1.6-2.6 [facility] - CoagulationOrde red By: Hussain Cat on 02-08-2022 PT Coag (PPP) [Time] 16.0 s 9.0-12.9 [facility] - Hematology and Cell countsOrdered By: Hussain Cat on 02-08-2022 Nucleated RBC/100 WBC (Bld) [Ratio] 0.0 % 0-0.5 [facility] Lymphocytes Auto (Bld) [#/Vo l]Ordered By: Hussain Cat on 02-08-2022 Lymphocytes (Bld) [#/Vol] 0.7 10*3/uL 1.00-4.8 [facility] Lymphocytes/100 WBC Auto (Bl d)Ordered By: Hussain Cat on 02-08-2022 Lymphocytes/100 WBC (Bld) 6.1 % [facility] MCH Auto (RBC) [Entitic mass ]Ordered By: Hussain Cat on 02-08-2022 MCH (RBC) [Entitic mass] 32.7 pg 24.7-34.3 [facility] MCHC Auto (RBC) [Mass/Vol]Or dered By: Hussain Cat on 02-08-2022 MCHC (RBC) [Mass/Vol] 34.0 g/dL 32.0-35.0 [facility] MCV Auto (RBC) [Entitic vol] Ordered By: Hussain Cat on 02-08-2022 MCV (RBC) [Entitic vol] 96.2 fL 80-100 [facility] Monocytes Auto (Bld) [#/Vol] Ordered By: Hussain Cat on 02-08-2022 Monocytes (Bld) [#/Vol] 0.3 10*3/uL 0.0-0.8 [facility] Monocytes/100 WBC Auto (Bld) Ordered By: Hussain Cat on 02-08-2022 Monocytes/100 WBC (Bld) 2.5 % [facility] Neutrophils Auto (Bld) [#/Vo l]Ordered By: Hussain Cat on 02-08-2022 Neutrophils (Bld) [#/Vol] 10.8 10*3/uL 1.8-7.7 [facility] Neutrophils/100 WBC Auto (Bl d)Ordered By: Hussain Cat on 02-08-2022 Neutrophils/100 WBC (Bld) 91.4 % [facility] No Panel InformationOrdered By: Hussain Cat on 02-08-2022 25-Hydroxy Vitamin D Total 66.1 ng/mL 30-100 [facility] Comment on above: VITAMIN D STATUS 25( [place])VITAMIN D RANGE (ng/mL) Deficient <20 Insufficient 20 to <30 Sufficient 30 to 100 Reference: Geraldine MF,Nkechi NC, Raegan CLIFFORD, et al. Evaluation,treatment, and prevention of vitamin D deficiency; an Endocrine Society clinical practice guideline. JCEM. 2010; 96(7):1911-30. Estimated GFR () > 60 mL/Min [facility] Comment on above: GFR estimated refere nce range: According to KDOQI guidelines, <60 ml/min/1.73m2 is sufficient to diagnose a patient with chronic kidney disease. Pharmacy Creatinine Clearance (Chem 80.69 [facility] Platelet mean volume Auto (B ld) [Entitic vol]Ordered By: Hussain Cat on 02-08-2022 Platelet mean volume (Bld) [Entitic vol] 8.6 fL 6.3-10.7 [facility] Platelet poor plasma interna tional normalized ratio (INR) by coagulation assay (relatOrdered By: Hussain Cat on 02-08-2022 INR Coag (PPP) [Relative time] 1.4 {INR} [facility] Comment on above: INR Therapeutic Rang e [...] 02-08-2022 Platelets (Bld) [#/Vol] 276 10*3/uL 150-450 [facility] Protein [Mass/volume] in Ser um or PlasmaOrdered By: Hussain Cat on 02-08-2022 Protein [Mass/Vol] 6.2 g/dL 6.1-7.9 [facility] RBC Auto (Bld) [#/Vol]Ordere d By: Hussain Cat on 02-08-2022 RBC (Bld) [#/Vol] 4.06 10*6/uL 3.60-5.00 [facility] Serum or plasma C reactive p rotein measurement (mass/volume)Ordered By: Rachelle Frazier on 02-08-2022 CRP [Mass/Vol] 3.9 mg/dL 0.0-1.0 [facility] Serum or plasma alanine chapman otransferase measurement without P-5'-P (enzymatic activiOrdered By: Hussain Cat on 02-08-2022 ALT No additional P-5'-P [Catalytic activity/Vol] 24 U/L 10-60 [facility] Serum or plasma albumin/glob ulin mass ratioOrdered By: Hussain Cat on 02-08-2022 Albumin/Globulin [Mass ratio] 1.3 {ratio} [facility] Serum or plasma alkaline van sphatase measurement (enzymatic activity/volume)Ordered By: Hussain Cat on 02-08-2022 ALP [Catalytic activity/Vol] 87 U/L 32-92 [facility] Serum or plasma aspartate am inotransferase measurement (enzymatic activity/volume)Ordered By: Hussain Cat on 02-08-2022 AST [Catalytic activity/Vol] 22 U/L 10-42 [facility] Serum or plasma calcium kelli urement (mass/volume)Ordered By: Hussain Cat on 02-08-2022 Calcium [Mass/Vol] 10.2 mg/dL 8.2-10.2 [facility] Serum or plasma chloride duy surement (moles/volume)Ordered By: Hussain Cat on 02-08-2022 Chloride [Moles/Vol] 103 mmol/L 95-114 [facility] Serum or plasma glucose kelli urement (mass/volume)Ordered By: Hussain Cat on 02-08-2022 Glucose [Mass/Vol] 119 mg/dL 70-100 [facility] Comment on above: ADA recommended refe rence range Random Glucose Reference Range is dependent on time and content of last meal. Glucose of more than 200 mg/dL in a nonstressed, ambulatory subject supports the diagnosis of Diabetes Mellitus. Serum or plasma potassium me asurement (moles/volume)Ordered By: Hussain Cat on 02-08-2022 Potassium [Moles/Vol] 4.6 mmol/L 3.5-5.1 [facility] Serum or plasma sodium measu rement (moles/volume)Ordered By: Hussain Cat on 02-08-2022 Sodium [Moles/Vol] 139 mmol/L 136-146 [facility] Serum or plasma total biliru bin measurement (mass/volume)Ordered By: Hussain Cat on 02-08-2022 Bilirubin [Mass/Vol] 0.8 mg/dL 0.3-1.2 [facility] Serum or plasma total carbon dioxide measurement (moles/volume)Ordered By: Hussain Cat on 02-08-2022 CO2 [Moles/Vol] 22.3 mmol/L 22.0-30.0 [facility] Serum or plasma urea nitroge n measurement (mass/volume)Ordered By: Hussain Cat on 02-08-2022 Urea nitrogen [Mass/Vol] 24 mg/dL 9-23 [facility] TSH DL <= 0.005 mIU/L QnOrde red By: Hussain Jossandrews on 02-08-2022 TSH Qn 1.31 m[IU]/L 0.45-5.33 [facility] Activated partial thrombopla stin time (aPTT) in platelet poor plasma by coagulation aOrdered By: Chapincito Barraza on 02-07-2022 aPTT Coag (PPP) [Time] 35.5 s 25.1-36.5 [facility] Automated erythrocytes count in urine sediment (number/area)Ordered By: Chapincito Barraza on 02-07-2022 RBC Auto (Urine sed) [#/Area] 0-1 [HPF] [facility] Automated leukocytes count i n urine sediment (number/area)Ordered By: Chapincito Barraza on 02-07-2022 WBC Auto (Urine sed) [#/Area] 3-4 [HPF] [facility] Basophils Auto (Bld) [#/Vol] Ordered By: Chapincito Barraza on 02-07-2022 Basophils (Bld) [#/Vol] 0.1 10*3/uL 0.0-0.2 [facility] Basophils/100 WBC Auto (Bld) Ordered By: Chapincito Barraza on 02-07-2022 Basophils/100 WBC (Bld) 0.5 % [facility] Bilirubin Test strip Ql (U)O rdered By: Chapincito Barraza on 02-07-2022 Bilirubin Ql (U) Negative Negative [facility] Blood hemoglobin measurement (mass/volume)Ordered By: Chapincito Barraza on 02-07-2022 Hemoglobin (Bld) [Mass/Vol] 13.6 g/dL 11.8-15.4 [facility] Blood leukocytes automated c ount (number/volume)Ordered By: Chapincito Barraza on 02-07-2022 WBC (Bld) [#/Vol] 11.3 10*3/uL 4.5-11.0 [facility] COVID-19 Positive/NegativeOr dered By: Chapincito Barraza on 02-07-2022 SARS-CoV-2 (COVID-19) N gene RAVIN+probe Ql (Resp) Negative Negative [facility] Comment on above: Testing for SARS-CoV -2 by RT-PCR This test was developed and its performance characteristics determined by [employer] and validated at the [facility]. This test has not been FDA cleared [...] (COVID-19) Ag IA.rapid Ql (Resp) Negative Negative [facility] Comment on above: This is a duplicate [employer] SARS Antigen (JESUS) result to be used for statistical tracking purpose only. Color Auto (U)Ordered By: Nalini Barraza on 02-07-2022 Color (U) Dark yellow Yellow [facility] Creatine kinase [Enzymatic a ctivity/volume] in Serum or PlasmaOrdered By: Chapincito Barraza on 02-07-2022 CK [Catalytic activity/Vol] 154 U/L 22-269 [facility] Creatinine (Bld) [Mass/Vol]O rdered By: Hussain Cat on 02-07-2022 Creatinine [Mass/Vol] 1.0 mg/dL 0.6-1.3 [facility] Comment on above: ER/ESD physician is notified/shown all ISTAT results. Critical values may be confirmed by laboratory testing if deemed necessary by ER attending doctor. Creatinine and Glomerular fi ltration rate.predicted panel (S/P/Bld)Ordered By: Chapincito Barraza on 02-07-2022 Creatinine [Mass/Vol] 1.03 mg/dL 0.44-1.03 [facility] Eosinophils Auto (Bld) [#/Vo l]Ordered By: Chapincito Barraza on 02-07-2022 Eosinophils (Bld) [#/Vol] 0.2 10*3/uL 0.0-0.45 [facility] Eosinophils/100 WBC Auto (Bl d)Ordered By: Chapincito Barraza on 02-07-2022 Eosinophils/100 WBC (Bld) 1.8 % [facility] Erythrocyte distribution wid th Auto (RBC) [Ratio]Ordered By: Chapincito Barraza on 02-07-2022 Erythrocyte distribution width (RBC) [Ratio] 13.0 % 11.9-15.3 [facility] Estimated glomerular filtrat ion rate (GFR) non- AmericanOrdered By: Chapincito Barraza on 02-07-2022 GFR/1.73 sq M.predicted among non-blacks MDRD (S/P/Bld) [Vol rate/Area] 54 mL/Min [facility] Hematocrit Auto (Bld) [Volum e fraction]Ordered By: Chapincito Barraza on 02-07-2022 Hematocrit (Bld) [Volume fraction] 40.9 % 34.0-46.4 [facility] Ketones Auto test strip (U) [Mass/Vol]Ordered By: Chapincito Barraza on 02-07-2022 Ketones (U) [Mass/Vol] Negative Negative Fi [facility] - Chemistry and C hemistry - challengeOrdered By: Chapincito Barraza on 02-07-2022 Natriuretic peptide B (Bld) [Mass/Vol] 77.0 pg/mL 5-100 [facility] - CoagulationOrde red By: Chapincito Barraza on 02-07-2022 PT Coag (PPP) [Time] 16.3 s 9.0-12.9 [facility] - Hematology and Cell countsOrdered By: Chapincito Barraza on 02-07-2022 Nucleated RBC/100 WBC (Bld) [Ratio] 0.0 % 0-0.5 [facility] - Microbiology an d Antimicrobial susceptibilityOrdered By: Chapincito Barraza on 02-07-2022 SARS-CoV-2 (COVID-19) RNA RAVIN+probe Ql (Unsp spec) N/A [facility] - UrinalysisOrder ed By: Chapincito Barraza on 02-07-2022 Hyaline casts LM Ql (Urine sed) 0-8 [LPF] [facility] Lymphocytes Auto (Bld) [#/Vo l]Ordered By: Chapincito Barraza on 02-07-2022 Lymphocytes (Bld) [#/Vol] 2.1 10*3/uL 1.00-4.8 [facility] Lymphocytes/100 WBC Auto (Bl d)Ordered By: Chapincito Barraza on 02-07-2022 Lymphocytes/100 WBC (Bld) 18.9 % [facility] MCH Auto (RBC) [Entitic mass ]Ordered By: Chapincito Barraza on 02-07-2022 MCH (RBC) [Entitic mass] 32.4 pg 24.7-34.3 [facility] MCHC Auto (RBC) [Mass/Vol]Or dered By: Chapincito Barraza on 02-07-2022 MCHC (RBC) [Mass/Vol] 33.4 g/dL 32.0-35.0 [facility] MCV Auto (RBC) [Entitic vol] Ordered By: Chapincito Barraza on 02-07-2022 MCV (RBC) [Entitic vol] 97.0 fL 80-100 [facility] Monocytes Auto (Bld) [#/Vol] Ordered By: Chapincito Barraza on 02-07-2022 Monocytes (Bld) [#/Vol] 1.4 10*3/uL 0.0-0.8 [facility] Monocytes/100 WBC Auto (Bld) Ordered By: Chapincito Barraza on 02-07-2022 Monocytes/100 WBC (Bld) 12.2 % [facility] Neutrophils Auto (Bld) [#/Vo l]Ordered By: Chapincito Barraza on 02-07-2022 Neutrophils (Bld) [#/Vol] 7.5 10*3/uL 1.8-7.7 [facility] Neutrophils/100 WBC Auto (Bl d)Ordered By: Chapincito Barraza on 02-07-2022 Neutrophils/100 WBC (Bld) 66.6 % [facility] Nitrite Test strip Ql (U)Ord ered By: Chapincito Barraza on 02-07-2022 Nitrite Ql (U) Positive Negative [facility] No Panel InformationOrdered By: Chapincito Barraza on 02-07-2022 SARS Antigen (LFIA) [facility] Estimated GFR () > 60 mL/Min [facility] Comment on above: GFR estimated refere nce range: According to KDOQI guidelines, <60 ml/min/1.73m2 is sufficient to diagnose a patient with chronic kidney disease. Pharmacy Creatinine Clearance (Chem 70.36 [facility] No Panel InformationOrdered By: Hussain Cat on 02-07-2022 POC Estimated GFR > 60 [facility] Comment on above: GFR estimated refere nce range: According to KDOQI guidelines, <60 ml/min/1.73m2 is sufficient to diagnose a patient with chronic kidney disease. POC Estimated GFR Non- Amer 56 [facility] Platelet mean volume Auto (B ld) [Entitic vol]Ordered By: Chapincito Barraza on 02-07-2022 Platelet mean volume (Bld) [Entitic vol] 8.5 fL 6.3-10.7 [facility] Platelet poor plasma interna tional normalized ratio (INR) by coagulation assay (relatOrdered By: Chapincito Barraza on 02-07-2022 INR Coag (PPP) [Relative time] 1.4 {INR} [facility] Comment on above: INR Therapeutic Rang e [...] 02-07-2022 Platelets (Bld) [#/Vol] 273 10*3/uL 150-450 [facility] Protein Auto test strip (U) [Mass/Vol]Ordered By: Chapincito Barraza on 02-07-2022 Protein (U) [Mass/Vol] Negative Negative [facility] RBC Auto (Bld) [#/Vol]Ordere d By: Chapincito Barraza on 02-07-2022 RBC (Bld) [#/Vol] 4.21 10*6/uL 3.60-5.00 [facility] Serum or plasma calcium kelli urement (mass/volume)Ordered By: Chapincito Barraza on 02-07-2022 Calcium [Mass/Vol] 10.8 mg/dL 8.2-10.2 [facility] Serum or plasma chloride duy surement (moles/volume)Ordered By: Chapincito Barraza on 02-07-2022 Chloride [Moles/Vol] 105 mmol/L 95-114 [facility] Serum or plasma creatine kin ase MB (CKMB)/total creatine kinase (CK) ratio by calculaOrdered By: Chapincito Barraza on 02-07-2022 CK.MB Calc [Catalytic fraction] 1.4 % 0.00-2.50 [facility] Serum or plasma creatine kin ase MB measurement (mass/volume)Ordered By: Chapincito Barraza on 02-07-2022 CK.MB [Mass/Vol] 2.2 ng/mL 0.6-6.3 [facility] Serum or plasma glucose kelli urement (mass/volume)Ordered By: Chapincito Barraza on 02-07-2022 Glucose [Mass/Vol] 83 mg/dL 70-100 [facility] Comment on above: ADA recommended refe rence range Random Glucose Reference Range is dependent on time and content of last meal. Glucose of more than 200 mg/dL in a nonstressed, ambulatory subject supports the diagnosis of Diabetes Mellitus. Serum or plasma potassium me asurement (moles/volume)Ordered By: Chapincito Barraza on 02-07-2022 Potassium [Moles/Vol] 5.1 mmol/L 3.5-5.1 [facility] Serum or plasma sodium measu rement (moles/volume)Ordered By: Chapincito Barraza on 02-07-2022 Sodium [Moles/Vol] 139 mmol/L 136-146 [facility] Serum or plasma total carbon dioxide measurement (moles/volume)Ordered By: Chapincito Barraza on 02-07-2022 CO2 [Moles/Vol] 22.4 mmol/L 22.0-30.0 [facility] [facility] Serum or plasma urea nitroge n measurement (mass/volume)Ordered By: Chapincito Barraza on 02-07-2022 Urea nitrogen [Mass/Vol] 22 mg/dL 9-23 [facility] Specific gravity Auto test s trip (U) [Rel density]Ordered By: Chapincito Barraza on 02-07-2022 Specific gravity (U) [Rel density] 1.049 1.001-1.030 [facility] Squamous epithelial cells de tection in urine sediment by light microscopyOrdered By: Chapincito Barraza on 02-07-2022 Epithelial cells.squamous LM Ql (Urine sed) 5-9 [HPF] [facility] Troponin I.cardiac [Mass/vol ume] in Serum or Plasma by High sensitivity methodOrdered By: Chapincito Barraza on 02-07-2022 Troponin I.cardiac High sensitivity method [Mass/Vol] 16 pg/mL 0-15 [facility] Urine bacteria detection by automated methodOrdered By: Chapincito Barraza on 02-07-2022 Bacteria Auto Ql (U) 2+ None Seen [facility] Urine clarity by refractomet ry automatedOrdered By: Chapincito Barraza on 02-07-2022 Clarity Refractometry automated (U) Clear Clear [facility] Urine culture routineOrdered By: Chapincito Barraza on 02-07-2022 Bacteria identified Cx Nom (U) Escherichia coli [facility] Urine glucose measurement by automated test strip (mass/volume)Ordered By: Chapincito Barraza on 02-07-2022 Glucose Auto test strip (U) [Mass/Vol] Normal mg/dL Normal [facility] Urine hemoglobin detection b y automated test stripOrdered By: Chapincito Barraza on 02-07-2022 Hemoglobin Auto test strip Ql (U) Negative Negative [facility] Urine leukocyte esterase det ection by automated test stripOrdered By: Chapincito Barraza on 02-07-2022 Leukocyte esterase Auto test strip Ql (U) 2+ Negative [facility] Urine sediment renal epithel ial cell count by microscopy (number/high power field)Ordered By: Chapincito Barraza on 02-07-2022 Epithelial cells.renal LM.HPF (Urine sed) [#/Area] 1-2 [HPF] [facility] Urobilinogen Auto test strip (U) [Mass/Vol]Ordered By: Chapincito Barraza on 02-07-2022 Urobilinogen (U) [Mass/Vol] Normal mg/dL Normal [facility] pH Auto test strip (U)Ordere d By: Chapincito Barraza on 02-07-2022 pH (U) 5.0 [pH] 5.0-9.0 [facility] CBC W Auto Differential pane l (Bld)on 12-09-2021 Abs Immature Gran 0.03 k/uL <0.10 k/uL [facility] Basophils (Bld) [#/Vol] 0.04 10*3/uL <0.11 k/uL [facility] Basophils/100 WBC (Bld) 0.5 % C [facility] Differential cell count method Nom (Bld) Auto [facility] Eosinophils (Bld) [#/Vol] 0.19 10*3/uL <0.46 k/uL [facility] Eosinophils/100 WBC (Bld) 2.5 % [facility] Erythrocyte distribution width (RBC) [Ratio] 13.7 % 11.5 - 15.0 % [facility] Hematocrit (Bld) [Volume fraction] 42.6 % 36.0 - 46.0 % [facility] Hemoglobin (Bld) [Mass/Vol] 13.8 g/dL 11.5 - 15.5 g/dL [facility] Immature Gran % 0.4 % [facility] Lymphocytes (Bld) [#/Vol] 1.69 10*3/uL 1.00 - 4.00 k/uL [facility] Lymphocytes/100 WBC (Bld) 22.4 % [facility] MCH (RBC) [Entitic mass] 32.1 pg 26.0 - 34.0 pg [facility] MCHC (RBC) [Mass/Vol] 32.4 g/dL 30.5 - 36.0 g/dL [facility] MCV (RBC) [Entitic vol] 99.1 fL 80.0 - 100.0 fL [facility] Monocytes (Bld) [#/Vol] 0.92 10*3/uL High <0.87 k/uL [facility] Monocytes/100 WBC (Bld) 12.2 % [facility] Neutrophils (Bld) [#/Vol] 4.66 10*3/uL 1.45 - 7.50 k/uL [facility] Neutrophils/100 WBC (Bld) 62.0 % [facility] Nucleated RBC (Bld) [#/Vol] 10*3/uL <0.01 k/uL [facility] Nucleated RBC/100 WBC (Bld) [Ratio] 0.0 /100 WBC [facility] Platelet mean volume (Bld) [Entitic vol] 10.5 fL 9.0 - 12.7 fL [facility] Platelets (Bld) [#/Vol] 231 10*3/uL 150 - 400 k/uL [facility] RBC (Bld) [#/Vol] 4.30 10*6/uL 3.90 - 5.2 0 m/uL [facility] WBC (Bld) [#/Vol] 7.53 10*3/uL 3.70 - 11. 00 k/uL [facility] Comprehensive metabolic 2000 panelon 12-09-2021 Albumin [Mass/Vol] 4.0 g/dL 3.9 - 4.9 g/dL [facility] ALP [Catalytic activity/Vol] 120 U/L 34 - 123 U/L [facility] ALT [Catalytic activity/Vol] 27 U/L 7 - 38 U/L [facility] Anion gap [Moles/Vol] 11 mmol/L 9 - 18 mmol/L [facility] AST [Catalytic activity/Vol] 25 U/L 13 - 35 U/L [facility] Bilirubin [Mass/Vol] 0.6 mg/dL 0.2 - 1 .3 mg/dL [facility] Calcium [Mass/Vol] 10.3 mg/dL High 8.5 - 10. 2 mg/dL [facility] Chloride [Moles/Vol] 109 mmol/L High 97 - 10 5 mmol/L [facility] CO2 [Moles/Vol] 19 mmol/L Low 22 - 30 mmol/L [facility] Creatinine [Mass/Vol] 1.02 mg/dL High 0.58 - 0.96 mg/dL [facility] Estimated Glomerular Filtration Rate 61 mL/min/1.73m >=60 mL/min/1.73m [facility] Glucose [Mass/Vol] 85 mg/dL 74 - 99 mg/dL [facility] Potassium [Moles/Vol] 4.6 mmol/L 3.7 - 5.1 mmol/L [facility] Protein [Mass/Vol] 6.1 g/dL Low 6.3 - 8.0 g/dL [facility] Sodium [Moles/Vol] 139 mmol/L 136 - 144 mmol/L [facility] Urea nitrogen [Mass/Vol] 26 mg/dL High 7 - 21 mg/dL [facility] ESR Westergren method (Bld) [Velocity]on 12-09-2021 ESR (Bld) [Velocity] 5 mm/h 0 - 20 mm/hr [facility] Laboratory - Chemistry and C hemistry - challengeon 12-09-2021 CRP [Mass/Vol] 0.6 mg/dL <0.9 mg/dL [facility] Laboratory - Hematology and Cell countson 12-09-2021 Complement C3 [Mass/Vol] 154 mg/dL 86 - 166 mg/dL [facility] Complement C4 [Mass/Vol] 35 mg/dL 13 - 46 mg/dL [facility] CONVERTED SURGICAL PATHOLOGY on 09-13-2021 CONVERTED ADDENDA ADDENDUM This addendum is issued to report the results of immunohistochemical stains. The original diagnoses remain unchanged. Immunohistochemistry for Helicobacter pylori performed on the gastric biopsy is negative (Block B1). Laboratory Developed Test (LDT) Disclaimer: Positive and negative controls stain appropriately. Performance characteristics of immunohistochemical, immunofluorescent and chromogenic in-situ hybridization tests have been determined by [facility]'s [facility] [place] ([facility]) in a manner consistent with CLIA requirements. One or more of these tests have not been cleared or approved by the FDA. [facility] is regulated under CLIA as qualified to perform high-complexity testing. These tests are used for clinical purposes. They should not be regarded as investigational or for research. [facility] CONVERTED CLINICAL HISTORY DIARRHEA, UNSPECIFIED TYPE [R19.7 (ICD-10-CM)]; EPIGASTRIC PAIN [R10.13 (ICD-10-CM)], LMP: NA A: R/O CELIAC B: R/O H PYLORI C-F: R/O MICROSCOPIC COLITIS, R/O UC [facility] CONVERTED COMPLETE REPORT ADDENDUM PRESENT Specimen originated from [facility] Specimen #: [id number] Submitting Physician: DIONE REINOSO MD, [facility] FINAL DIAGNOSIS 1. Duodenum, biopsy (A) - Duodenal mucosa with no significant diagnostic alteration. 2. Stomach, biopsy (B) - Chronic antral and fundic gastritis. - Immunohistochemistry for Helicobacter pylori will be reported in an addendum. 3. Colon, right, transverse, left, and rectum, biopsy (C-F) - Colonic mucosa with no significant diagnostic alteration. JENNYFER KEYS MD (Electronic Signature) _ SPECIMEN SUBMITTED A: DUODENUM, BIOPSY B: GASTRIC, [...] in-situ hybridization tests have been determined by [facility]'s [facility] Pathology and Laboratory Medicine [place] ([facility]) in a manner consistent with CLIA requirements. [...] in one cassette. Gross examination performed at [facility], [address] [place] [address] TTN 09/12/2021 9:01:08 PM Date of Report: 09/13/2021 Date of Procedure: 09/12/2021 Date of Receipt: 09/12/2021 Submitted by: DIONE REINOSO MD, M[facility] Location: [place] Diagnostic interpretation performed at [place] [address]. CLIA Number: [id number] [facility] CONVERTED FINAL DIAGNOSIS 1. Duodenum, biopsy (A) - Duodenal mucosa with no significant diagnostic alteration. 2. Stomach, biopsy (B) - Chronic antral and fundic gastritis. - Immunohistochemistry for Helicobacter pylori will be reported in an addendum. 3. Colon, right, transverse, left, and rectum, biopsy (C-F) - Colonic mucosa with no significant diagnostic alteration. [facility] CONVERTED GROSS DESCRIPTION A. Received [...] in one cassette. Gross examination performed at [facility], [address] [place] [address] TTN 09/12/2021 9:01:08 PM [facility] CONVERTED ORDERING PROVIDER Ordering Provider: DIONE REINOSO [facility] CONVERTED SPECIMENS DUODENUM, BIOPSY GASTRIC, BIOPSY RIGHT COLON, BIOPSY TRANSVERSE COLON, BIOPSY LEFT COLON, BIOPSY RECTAL, BIOPSY [facility] SURGICAL PATHOLOGYon [address] [employer] ADDENDUM PRESENT Specimen originated from [facility] Specimen #: [id number] Submitting Physician: DIONE REINOSO MD, [facility] FINAL DIAGNOSIS 1. Duodenum, biopsy (A) - Duodenal mucosa with no significant diagnostic alteration. 2. Stomach, biopsy (B) - Chronic antral and fundic gastritis. - Immunohistochemistry for Helicobacter pylori will be reported in an addendum. 3. Colon, right, transverse, left, and rectum, biopsy (C-F) - Colonic mucosa with no significant diagnostic alteration. JENNYFER KEYS MD (Electronic Signature) _ SPECIMEN SUBMITTED A: DUODENUM, BIOPSY B: GASTRIC, [...] in-situ hybridization tests have been determined by [facility]'s [facility] Pathology and Laboratory [facility] [place] ([facility]) in a manner consistent with CLIA requirements. [...] in one cassette. Gross examination performed at [facility], [address] [place] [address] TTN 09/12/2021 9:01:08 PM Date of Report: 09/13/2021 Date of Procedure: 09/12/2021 Date of Receipt: 09/12/2021 Submitted by: DIONE REINOSO MD, M[facility] Location: [facility] Diagnostic interpretation performed at [place] [address]. CLIA Number: [id number] [facility] COLONOSCOPY DIAGNOSTICon [facility] EGD DIAGNOSTICon 09-12-2021 [facility] CBC (INCLUDES DIFF/PLT)on Basophils (Bld) [#/Vol] 0.042 10*3/uL Normal 0-200 [facility] Comment on above: Performed By: #### 6 399, 2570, 14949, 90086 #### [facility] [address], [address] [place] [address] [employer] Worker: Jose John MD Basophils/100 WBC (Bld) 0.7 % Normal [facility] Comment on above: Performed By: #### 6 399, 7600, 93227, 32298 #### [facility] [address], [address] [place] [address] [employer] Worker: Jose John MD Eosinophils (Bld) [#/Vol] 0.222 10*3/uL Normal 15-500 [facility] Comment on above: Performed By: #### 6 399, 7600, 75864, 16663 #### [facility] of [place] [address] [employer] Worker: Jose John MD Eosinophils/100 WBC (Bld) 3.7 % Normal [facility] Comment on above: Performed By: #### 6 399, 7600, 52106, 86321 #### [facility] of [place] [address] [employer] Worker: Jose John MD Erythrocyte distribution width (RBC) [Ratio] 12.4 % Normal 11.0-15.0 [facility] Comment on above: Performed By: #### 6 399, 7600, 32850, 24270 #### [facility] of [place] [address] [employer] Worker: Jose John MD Hematocrit (Bld) [Volume fraction] 46.1 % High 35.0-45.0 [facility] Comment on above: Performed By: #### 6 399, 7600, 38501, 00446 #### [facility] of [place] [address] [employer] Worker: Jose John MD Hemoglobin (Bld) [Mass/Vol] 16.0 g/dL High 11.7-15.5 [facility] Comment on above: Performed By: #### 6 399, 7600, 86864, 61767 #### [facility] of [place] [address] [employer] Worker: Jose John MD Lymphocytes (Bld) [#/Vol] 1.638 10*3/uL Normal 850-3900 [facility] Comment on above: Performed By: #### 6 399, 7600, 41434, 65126 #### [facility] of [place] [address] [employer] Worker: Jose John MD Lymphocytes/100 WBC (Bld) 27.3 % Normal [facility] Comment on above: Performed By: #### 6 399, 7600, 31324, 89701 #### [facility] of [place] [address] [employer] Worker: Jose John MD MCH (RBC) [Entitic mass] 31.6 pg Normal 27.0-33.0 [facility] Comment on above: Performed By: #### 6 399, 7600, 52631, 20701 #### [facility] of [place] [address] [employer] Worker: Jose John MD MCHC (RBC) [Mass/Vol] 34.7 g/dL Normal 32.0-36.[address] [facility] Comment on above: Performed By: #### 6 399, 7600, 29992, 38833 #### [facility] of [place] [address] [employer] Worker: Jose John MD MCV (RBC) [Entitic vol] 91.1 fL Normal 80.0-100.0 [facility] Comment on above: Performed By: #### 6 399, 7600, 47996, 00006 #### [facility] of [place] [address] [employer] Worker: Jose John MD Monocytes (Bld) [#/Vol] 0.714 10*3/uL Normal 200-950 [facility] Comment on above: Performed By: #### 6 399, 7600, 23273, 62946 #### [facility] of [place] [address] [employer] Worker: Jose John MD Monocytes/100 WBC (Bld) 11.9 % Normal [facility] Comment on above: Performed By: #### 6 399, 7600, 60109, 42597 #### [facility] of [place] [address] [employer] Worker: Jose John MD Neutrophils (Bld) [#/Vol] 3.384 10*3/uL Normal 1696-1876 [facility] Comment on above: Performed By: #### 6 399, 7600, 93863, 61381 #### [facility] of [place] [address] [employer] Worker: Jose John MD Neutrophils/100 WBC (Bld) 56.4 % Normal [facility] Comment on above: Performed By: #### 6 399, 7600, 88813, 46999 #### [facility] of [place] [address] [employer] Worker: Jose John MD Platelet mean volume (Bld) [Entitic vol] 10.9 fL Normal 7.5-12.5 [facility] Comment on above: Performed By: #### 6 399, 7600, 93528, 66357 #### [facility] of [place] [address] [employer] Worker: Jose John MD Platelets (Bld) [#/Vol] 265 10*3/uL Normal 140-400 [facility] Comment on above: Performed By: #### 6 399, 7600, 01287, 41974 #### [facility] [place] [address] [employer] Worker: Jose John MD RBC (Bld) [#/Vol] 5.06 10*6/uL Normal 3.80-5.10 [facility] Comment on above: Performed By: #### 6 399, 7600, 52106, 65709 #### [facility] of [place] [address] [employer] Worker: Jose John MD WBC (Bld) [#/Vol] 6.0 10*3/uL Normal 3.8-10.8 [facility] Comment on above: Performed By: #### 6 399, 7600, 98898, 06527 #### [facility] of [place] [address] [employer] Worker: Jose John MD COMPREHENSIVE METABOLIC PANE [facility] 09-10-2021 Albumin [Mass/Vol] 4.5 g/dL Normal 3.6-5.1 [facility] Comment on above: Performed By: #### 6 399, 7600, 00670, 94535 #### [facility] [place] [address] [employer] Worker: Jose Jonh MD Albumin/Globulin [Mass ratio] 2.5 {ratio} Normal 1.0-2.5 [facility] Comment on above: Performed By: #### 6 399, 7600, 62166, 58281 #### [facility] of [address], [address] [place] [address] [employer] Worker: Jose John MD ALP [Catalytic activity/Vol] 121 U/L Normal 37-153 [facility] Comment on above: Performed By: #### 6 399, 7600, 09703, 55177 #### [facility] of [place] [address] [employer] Worker: Jose John MD ALT [Catalytic activity/Vol] 23 U/L Normal 6-29 [facility] Comment on above: Performed By: #### 6 399, 7600, 35234, 77539 #### [facility] [place] [address] [employer] Worker: Jose John MD AST [Catalytic activity/Vol] 21 U/L Normal 10-35 [facility] Comment on above: Performed By: #### 6 399, 7600, 78962, 69049 #### [facility] of [place] [address] [employer] Worker: Jose John MD Bilirubin [Mass/Vol] 0.7 mg/dL Normal 0.2-1.2 [facility] Comment on above: Performed By: #### 6 399, 7600, 81808, 75940 #### [facility] of [place] [address] [employer] Worker: Jose John MD BUN/CREATININE RATIO NOT APPLICABLE Normal 6-22 [facility] Comment on above: Performed By: #### 6 399, 7600, 69947, 66653 #### [facility] [address], [address] [place] [address] [employer] Worker: Jose John MD Calcium [Mass/Vol] 10.9 mg/dL High 8.6-10.4 [facility] Comment on above: Performed By: #### 6 399, 7600, 87477, 62512 #### [facility] [address], [address] [place] [address] [employer] Worker: Jose John MD Chloride [Moles/Vol] 106 mmol/L Normal 98-110 [facility] Comment on above: Performed By: #### 6 399, 7600, 23844, 78154 #### [facility] [address], [address] [place] [address] [employer] Worker: Jose John MD CO2 [Moles/Vol] 28 mmol/L Normal 20-32 [facility] Comment on above: Performed By: #### 6 399, 7600, 13717, 55411 #### [facility] [place] [address] [employer] Worker: Jose John MD Creatinine [Mass/Vol] 0.99 mg/dL Normal 0.50-0.[address] [facility] Comment on above: Result Comment: For patients >49 years of age, the reference limit for Creatinine is approximately 13% higher for people identified as -Estonian. Performed By: #### 6 399, 7600, 34316, 67314 #### [facility] [address], [address] [place] [address] [employer] Worker: Jose John MD eGFR NON-AFR. YEMENI 60 mL/min/1.73m2 Normal > OR = 60 [facility] Comment on above: Performed By: #### 6 399, 7600, 61925, 56009 #### [facility] [address], [address] [place] [address] [employer] Worker: Jose John MD GFR/1.73 sq M.predicted among blacks MDRD (S/P/Bld) [Vol rate/Area] 69 mL/min/{1.73_m2} Normal > OR = 60 [facility] Comment on above: Performed By: #### 6 399, 7600, 60453, 45813 #### [facility] of [address], [address] [place] [address] [employer] Worker: Jose John MD Globulin (S) [Mass/Vol] 1.8 g/dL Low 1.9-3.7 [facility] Comment on above: Performed By: #### 6 399, 7600, 41743, 92972 #### [facility] of [address], [address] [place] [address] [employer] Worker: Jose John MD Glucose [Mass/Vol] 77 mg/dL Normal 65-99 [facility] Comment on above: Result Comment: Fasting reference interval Performed By: #### 6 399, 7600, 43769, 77971 #### [facility] of [address], [address] [place] [address] [employer] Worker: Jose John MD Potassium [Moles/Vol] 5.0 mmol/L Normal 3.5-5.[address] [facility] Comment on above: Performed By: #### 6 399, 7600, 43645, 92218 #### [facility] of [place] [address] [employer] Worker: Jose John MD Protein [Mass/Vol] 6.3 g/dL Normal 6.1-8.1 [facility] Comment on above: Performed By: #### 6 399, 7600, 22246, 82319 #### [facility] of [place] [address] [employer] Worker: Jose John MD Sodium [Moles/Vol] 139 mmol/L Normal 135-146 [facility] Comment on above: Performed By: #### 6 399, 7600, 36320, 45857 #### [facility] of [address], [address] [place] [address] [employer] Worker: Jose John MD Urea nitrogen [Mass/Vol] 25 mg/dL Normal 7-25 [facility] Comment on above: Performed By: #### 6 399, 7600, 60414, 25156 #### [facility] [address], [address] [place] [address] [employer] Worker: Jose John MD LIPID PANEL, [facility] 08-18 Cholesterol [Mass/Vol] 129 mg/dL Normal <200 [facility] Comment on above: Order Comment: FASTI NG:YES FASTING: YES Performed By: #### 6 399, 7600, 18491, 14102 #### [facility] [address], [address] [place] [address] [employer] Worker: Jose John MD Cholesterol in HDL [Mass/Vol] 49 mg/dL Low > OR = 50 [facility] Comment on above: Order Comment: FASTI NG:YES FASTING: YES Performed By: #### 6 399, 7600, 90430, 31308 #### [facility] [address], [address] [place] [address] [employer] Worker: Jose John MD Cholesterol in LDL [Mass/Vol] 57 mg/dL Normal [facility] Comment on above: Order Comment: FASTI NG:YES FASTING: YES Result Comment: Refe rence range: <100 Desirable range <100 mg/dL for primary prevention; <70 mg/dL for patients with CHD or diabetic patients with > or = 2 CHD risk factors. LDL-C is now calculated using the Patrick-Nisa calculation, which is a validated novel method providing better accuracy than the Friedewald equation in the estimation of LDL-C. Patrick FUNEZ et al. TORIN. 2013;310(19): 7431-3568 (http://education.[employer]elCloud/faq/NTX812) Performed By: #### 6 399, 7600, 66586, 44227 #### [facility] [address], [address] [place] [address] [employer] Worker: Jose John MD Cholesterol.total/Shell sterol in HDL [Mass ratio] 2.6 {ratio} Normal <5.0 [facility] Comment on above: Order Comment: FASTI NG:YES FASTING: YES Performed By: #### 6 399, 7600, 23486, 47232 #### [facility] [place] [address] [employer] Worker: Jose John MD NON HDL CHOLESTEROL 80 mg/dL (calc) Normal <130 [facility] Comment on above: Order Comment: FASTI NG:YES FASTING: YES Result Comment: For patients with diabetes plus 1 major ASCVD risk factor, treating to a non-HDL-C goal of <100 mg/dL (LDL-C of <70 mg/dL) is considered a therapeutic option. Performed By: #### 6 399, 7600, 81219, 37145 #### [facility] [place] [address] [employer] Worker: Jose John MD Triglyceride [Mass/Vol] 155 mg/dL High <150 [facility] Comment on above: Order Comment: FASTI NG:YES FASTING: YES Performed By: #### 6 399, 7600, 49866, 62797 #### [facility] [place] [address] [employer] Worker: Jose John MD TSH+FREE T4on 09-10-2021 Free T4 [Mass/Vol] 1.2 ng/dL Normal 0.8-1.8 [facility] Comment on above: Performed By: #### 6 399, 7600, 28740, 18052 #### [facility] [place] [address] [employer] Worker: Jose John MD TSH Qn 4.41 m[IU]/L Normal 0.40-4.50 [facility] Comment on above: Performed By: #### 6 399, 7600, 02102, 09819 #### [facility] [place] [address] [employer] Worker: Jose John MD [facility] April 29, 2021 JESUS WOLF [address] [place] [address] JESUS WOLF 1955 Dear Jesus, This is a SECOND ATTEMPT to remind you that you are due for an appointment with [facility]. Please contact our office at [phone] to schedule an appointment at your earliest convenience. Thank you, [facility] Reminderson 04-29-2021 Reminders - From: Apryl Cobb To: [facility] - Reminders/Recalls; Sent: 11/14/2020 13:49:43 EDT Show up: 03/17/2021 13:49:00 EDT Subject: Ambulatory Reminder Due Date/Time: 04/28/2021 13:48:00 EDT Reminder/Recall haydee 5 year recall 04/28/2021 first recall letter second recall letter Normal [facility] Patient Letter FTMCon 2020 Patient Letter [facility] March 27, 2021 JESUS WOLF [address] [place] [address] JESUS WOLF 1955 Dear Jesus, This is a reminder that you are due for an appointment with [facility]. Please contact our office at [phone] to schedule an appointment at your earliest convenience. Thank you, [facility] IMAGE-GUIDED PAP W/AGE BASED SCR PROTOCOLSon 03-08-2021 COMMENT Normal [facility] Comment on above: Result Comment: This order for age-based cervical cancer and STI screening follows ACOG guidelines(PB 168, 140, IHY873). See individual assays for performing site location. Performed By: #### 9 7109, 57359 #### [facility], [address] [place] [address] - [place] [address] [employer] Worker: Jose John MD Result Comment: EXPL ANATORY [...] REFLEX HPV 16,18/45on 03-08-2021 CLINICAL INFORMATION: Normal [facility] Comment on above: Result Comment: None given Performed By: #### 9 1414, 43518 #### [facility], [address] [place] [address] [employer] Worker: Jose John MD COMMENT: Normal [facility] [...] this patient. Performed By: #### 9 1414, 88947 #### [facility] [address] [employer] Worker: Jose John MD FIELD CASHIER: Normal [employer] [facility] Comment on above: Result Comment: [facility], CT(ASCP) CT screening location: [place] [address]. Performed By: #### 9 1414, 51675 #### [facility] [address] [employer] Worker: Jose John MD HPV mRNA E6/E7 Not detected Normal Not Detected [facility] [facility] Comment on above: Result Comment: Meth odology: [employer]-Mediated Amplification This assay detects E6/E7 viral messenger RNA (mRNA) from 14 high-risk HPV types (16,18,31,33,35,39,45,51,52,56,58,59,66,68). The analytical performance characteristics of this assay have been determined by [employer] [facility]. The modifications have not been cleared or approved by the FDA. This assay has been validated pursuant to the CLIA regulations and is used for clinical purposes. For additional information, please refer to http://education.[employer] [address]elCloud/faq/NBK464p1 (This link if provided for information/ educational purposes only.) NO COLLECTION DATE RECEIVED. WE HAVE USED THE DATE THE SPECIMEN WAS RECEIVED BY THIS LABORATORY THE COLLECTION DATE. IF THIS IS INCORRECT, PLEASE CONTACT CLIENT SERVICES. PHONE NUMBER: [phone] Performed By: #### 9 1414, 92194 #### [facility], [address] [place], [place] [id number] [employer] Worker: Jose John MD INTERPRETATION/RESULT: Normal [facility] Comment on above: Result Comment: Nega tive for intraepithelial lesion or malignancy. Atrophic pattern; predominantly parabasal cells Performed By: #### 9 1414, 98005 #### [facility], [address] [place], [place] [phone] [employer] Worker: Jose John MD LMP: Normal [facility] Comment on above: Result Comment: None given Performed By: #### 9 1414, 72997 #### [facility], [address] [place] [phone] [employer] Worker: Jose John MD PREV. BX: Normal [facility] Comment on above: Result Comment: None given Performed By: #### 9 1414, 42714 #### [facility], [address] [place] [phone] [employer] Worker: Jose John MD PREV. PAP: Normal [facility] Comment on above: Result Comment: None given Performed By: #### 9 1414, 39326 #### [facility], [address] [place] [phone] [employer] Worker: Jose John MD SOURCE: Normal [facility] Comment on above: Result Comment: None given Performed By: #### 9 1414, 38487 #### [facility], [address] [place] [phone] [employer] Worker: Jose John MD STATEMENT OF ADEQUACY: Normal [facility] Comment on above: Result Comment: SATI SFACTORY FOR EVALUATION Performed By: #### 9 1414, 75102 #### [facility] [place] [address] [employer] Worker: Jose John MD ALLIED HEALTHon 12-21-2020 [facility] HNO ID: [id number] Author: Padmini Keller RDMS Service: Radiology Author Type: Academic Affairs Assistant Type: Allied Health Filed: 12/20/2020 11:52 PM [...] RDMS December 20, 2020 11:52 PM Normal [facility] Basic Metabolic Panlon 12-21 Anion gap [Moles/Vol] 7 mmol/L Low 9-18 [facility] Comment on above: Performed By: #### C BC, BMP ####[facility] Calcium [Mass/Vol] 9.6 mg/dL Normal 8.5-10.2 [facility] Comment on above: Performed By: #### C BC, BMP ####[facility] Chloride [Moles/Vol] 98 mmol/L Normal 97-105 [facility] Comment on above: Performed By: #### C BC, BMP ####[facility] CO2 [Moles/Vol] 25 mmol/L Normal 22-30 [facility] Comment on above: Performed By: #### C JACKIE, BMP ####[address] Creatinine [Mass/Vol] 0.77 mg/dL Normal 0.58-0.96 [facility] Comment on above: Performed By: #### C JACKIE, BMP ####[address] eGFR- Amer. >60 Normal >60 [facility] Comment on above: Performed By: #### C JACKIE, BMP ####[address] eGFR-All Other Races >60 Normal >60 [facility] Comment on above: Result Comment: [...] GFR. Performed By: #### C JACKIE, BMP ####[address] Glucose [Mass/Vol] 132 mg/dL High 74-99 [facility] Comment on above: Performed By: #### C JACKIE, BMP ####[address] Potassium [Moles/Vol] 4.6 mmol/L Normal 3.7-5.1 [facility] Comment on above: Performed By: #### C JACKIE, BMP ####[address] Sodium [Moles/Vol] 130 mmol/L Low 136-144 [facility] Comment on above: Performed By: #### C JACKIE, BMP ####[address] Urea nitrogen [Mass/Vol] 15 mg/dL Normal 7-21 [facility] Comment on above: Performed By: #### C JACKIE, BMP ####[place] [address] [address] [phone] CASE MANAGEMon 12-21-2020 CASE MANAGEM HNO ID: [id number] Author: Joslyn Booker RN Service: ? Author Type: Registered Nurse Type: Care Mgt Progress Note Filed: 12/21/2020 1:41 PM Note Text: CARE MANAGEMENT DISCHARGE NOTE SERVICE DATE: 12/21/2020 SERVICE TIME: 1315 LOS: 0 days Admission Date: 12/18/2020 DISCHARGE ARRANGEMENT (list agency and phone number) Discharge Arrangement: Home;Home Longterm Care: PT;OT [facility]UN[facility]: Handoff to: Primary Care Physician TRANSPORTATION ARRANGEMENTS: Transportation Arrangements: Car ADDITIONAL CONTACT RESOURCES: summary of care Patient to discharge home with her providing transportation. She has all DME for home. Prescriptions delivered to the bedside. [facility] provide home care. Summary of care sent to care team, PCP, [facility]. SIGNATURE: Joslyn Booker RN PATIENT NAME: Jesus Wolf DATE: December 21, 2020 TIME: 1:40 PM PAGER/CONTACT #: [phone] Normal [facility] CBCon 12-21-2020 Absolute nRBC 0.02 k/uL High <0.01 [facility] Comment on above: Performed By: #### C JACKIE, BMP ####[place] [address] [address] [phone] Erythrocyte distribution width (RBC) [Ratio] 13.8 % Normal 11.5-15.0 [facility] Comment on above: Performed By: #### C JACKIE, BMP ####[place] [address] [address] [phone] Hematocrit (Bld) [Volume fraction] 30.4 % Low 36.0-46.0 [facility] Comment on above: Performed By: #### C JACKIE, BMP ####[address] Hemoglobin (Bld) [Mass/Vol] 9.6 g/dL Low 11.5-15.5 [facility] Comment on above: Performed By: #### C BC, BMP ####[address] MCH 30.9 pG Normal 26.0-34.0 [facility] Comment on above: Performed By: #### C BC, BMP ####[address] MCHC (RBC) [Mass/Vol] 31.6 g/dL Normal 30.5-36.0 [facility] Comment on above: Performed By: #### C JACKIE, BMP ####[address] MCV (RBC) [Entitic vol] 97.7 fL Normal 80.0-100.0 L [facility] Comment on above: Performed By: #### C BC, BMP ####[address] Platelet mean volume (Bld) [Entitic vol] 10.8 fL Normal 9.0-12.7 [facility] Comment on above: Performed By: #### C BC, BMP ####[address] Platelets (Bld) [#/Vol] 154 10*3/uL Normal 150-400 [facility] Comment on above: Performed By: #### C BC, BMP ####[address] RBC (Bld) [#/Vol] 3.11 10*6/uL Low 3.90-5.[address] [facility] Comment on above: Performed By: #### C BC, BMP ####[address] WBC (Bld) [#/Vol] 10.32 10*3/uL Normal 3.70-11.00 [facility] Comment on above: Performed By: #### C , [facility] ####[facility] [phone] [facility] 12-21-2020 [facility] HNO ID: [id number] Author: Helene Vaughan PA-C Service: Orthopaedic Surgery Author Type: Physician Truck Engine Technician Type: Discharge Summary Filed: 12/21/2020 9:29 AM Note Text: Attestation signed by Jose Lovelace Jr., MD at 12/21/2020 9:32 AM agree Addendum: Patient underwent haleigh duplex d/t severe [...] Home with Home Health Care Discharge Medications: Polancoasif Holguin Home Medication Instructions SHELIA:[id number] Printed on:12/19/20 2359 Medication Information acetaminophen (TYLENOL) 500 mg tablet [...] oriented x3, E (more content not included)... [facility] CONSULT PROGon 12-21-2020 CONSULT PROG HNO ID: [id number] Author: Obinna Nichols MD Service: General Internal [...] ? ? ? 80 20 93 % 12/20/20 221 ? ? ? 80 20 89 % [...] meaning may be extrapolated by contextual derivation [facility] NURSING PROGon 12-21-2020 NURSING PROG HNO ID: [id number] Author: Gabbi Chinchilla RN Service: Nursing Author Type: Registered Nurse Type: Nursing Progress Note Filed: 12/21/2020 5:24 AM Note Text: Nursing Progress Note Patient Name: Jesus Wolf Patient Location: [address]/[place] [id number]- __ 2200: Pt c/o new onset pain in [...] This note was completed by: Gabbi Chinchilla [facility] THERAPY NTon 12-21-2020 THERAPY NT HNO ID: [id number] Author: Jerri Morrow, PT Service: Physical Therapy Author Type: Physical Therapist Type: Therapy (PT/OT/Speech/Resp) Filed: 12/21/2020 12:50 PM Note Text: Physical Therapy Treatment SERVICE DATE: 12/21/2020 SERVICE TIME: 1155 to 1234 ROOM: [place] [address] Recommended Discharge Disposition: Home PT Recommended Discharge Disposition Comments: Anticipate patient to progress to home with HHC, pending progress with stair training. Declining SNF at this time. Anticipated Discharge Needs: Physical Assist at Home Physical Assist at Home for: Laundry;Cleaning;Meals ;Safety;Self Care;Shopping;Transpor tation Recommended Discharge Equipment: No equipment needs anticipated [...] Education;Self Care / Home Management;Energy Conservation Training;Joint Mobility;Strengthening ;Functional Mobility Training;Balance Training;Neuromuscular Re-education Plan for next [...] Laundry: spouse can complete Equipment Owned: Wheeled Walker;Cane;Entry Level Civil Engineer;El evated Toilet Seat Prior Functional Level: Within Functional Limits Prior Functional Level 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 Patient Report: [...] Left Lower Extremity: Step length decreased General Deviations/Observation s: Antalgic gait;Cad (more content not included)... [facility] THERAPY NT HNO ID: [id number] Author: Lesia Garcia, OT/L Service: Occupational Therapy Author Type: Occupational Therapist Type: Therapy (PT/OT/Speech/Resp) Filed: 12/21/2020 12:05 PM Note Text: Occupational Therapy Treatment SERVICE DATE: 12/21/2020 SERVICE TIME: 1110 to 1133 ROOM: [id number] Recommended Discharge Disposition: Home OT Recommended Discharge Disposition Comments: Limited due to pain, Pt. will require assist in IADLs/driving, has all DME/AE for d/c Anticipated Discharge Needs: Physical Assist at Home Physical Assist at Home for: Laundry;Cleaning;Meals ;Safety;Self Care;Shopping;Transpor tation OT 6 Clicks Score: 21 Pt. 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 CURRENT FUNCTIONAL [...] activity not attempted Learning/Educational Needs: Discharge Plan;Functional Activities/Mobility;Pl an of Care;Precautions;Rehab ilitation Techniques and Procedures;Safety;Self Care;Pain Management;Equipment Goals for [...] living (ADL);Muscle Weakness (generalized) Interventions Provided: Self Longterm Management (89228);Therapeutic Activity (69517) Therapeutic Activity (64890) Treatment Minutes: 8 $ Therapeutic Activity (45444) Billed Units: 1 unit Self Longterm Management (19948) Treatment Minutes: 15 $ Self Longterm Management (48209) Billed Units: 1 unit Training AND education provided in: Activity adaption / compensatory strategies, Adaptive equipment / DME, Bed mobility, Assistive device use, Benefits of in-hospital mobility, Discharge planning, Expected functional level, Lower extremity dressing, Functional mobility involving ADL's, Pain management, Precautions/restrictio ns, Positioning, Role of Occupational Therapy, Sitting balance to improve independence with ADLs/self-care, Standing balance to improve independence with ADLs/self-care, Transfer - Bed to chair, Transfer - Sit to stand The following therapeutic skills were used (more content not included)... [facility] DVT LOWER BILon DVT LOWER JEANIE * * *Final Report* * * DATE OF EXAM: Dec 20 2020 11:51PM [facility] 1005 - DVT LOWER JEANIE / PROCEDURE [...] IMPRESSION: No acute bilateral lower extremity DVT Farm Management Adviser: MILLER Transcribe Date/Time: Dec 21 2020 12:31A Dictated by : MADELYN EM MD This examination was interpreted and the report reviewed and electronically signed by: MADELYN EM MD on May 7 2021 12:32AM EST [id number] Normal [facility] Basic Metabolic Panlon 12-20 Anion gap [Moles/Vol] 10 mmol/L Normal 9-18 [facility] Comment on above: Performed By: #### Lesley MEJIA, BMP ####[place] [phone] Calcium [Mass/Vol] 9.7 mg/dL Normal 8.5-10.2 [facility] Comment on above: Performed By: #### Lesley MEJIA, BMP ####[place] [phone] Chloride [Moles/Vol] 98 mmol/L Normal 97-105 [facility] Comment on above: Performed By: #### Lesley MEJIA, BMP ####[place] [phone] CO2 [Moles/Vol] 23 mmol/L Normal 22-30 [facility] Comment on above: Performed By: #### Lesley MEJIA, BMP ####[place] [phone] Creatinine [Mass/Vol] 1.12 mg/dL High 0.58-0.96 [facility] Comment on above: Performed By: #### Lesley MEJIA, BMP ####[place] [phone] eGFR- Amer. 59 Low >60 [facility] Comment on above: Performed By: #### Lesley MEJIA, BMP ####[place] [phone] eGFR-All Other Races 49 . Low >60 [facility] Comment on above: Result Comment: [...] GFR. Performed By: #### C BC, BMP ####[place] [address] [place] [phone] Glucose [Mass/Vol] 104 mg/dL High 74-99 [facility] Comment on above: Performed By: #### C BC, BMP ####[facility] [place] [phone] Potassium [Moles/Vol] 4.7 mmol/L Normal 3.7-5.1 [facility] Comment on above: Performed By: #### C BC, BMP ####[place] [address] [place] [phone] Sodium [Moles/Vol] 131 mmol/L Low 136-144 [facility] Comment on above: Performed By: #### C BC, BMP ####[facility] [phone] Urea nitrogen [Mass/Vol] 20 mg/dL Normal 7-21 [facility] Comment on above: Performed By: #### C BC, BMP ####[place] [phone] CASE MANAGEMon 12-20-2020 CASE MANAGEM HNO ID: [id number] Author: Palak Mcmillan Service: ? Author Type: Resource Center Truck Engine Technician Type: Care Mgt Progress Note Filed: 12/20/2020 10:27 AM Note Text: CARE MANAGEMENT PROGRESS NOTE SERVICE DATE: 12/20/2020 SERVICE TIME: 10:00Am LOS: 0 days IMM Follow Up Copy Given: Yes Copy given to:: Patient Method: In Person Jesus is aware of IMM right SIGNATURE: Palak Mcmillan PATIENT NAME: Jesus Wolf DATE: December 20, 2020 TIME: 10:25 AM PAGER/CONTACT #: [phone] Normal [facility] CBCon 12-20-2020 Absolute nRBC <0.01 Normal <0.01 [facility] Comment on above: Performed By: #### C BC, BMP ####[address] Erythrocyte distribution width (RBC) [Ratio] 14.2 % Normal 11.5-15.0 [facility] Comment on above: Performed By: #### C BC, BMP ####[address] Hematocrit (Bld) [Volume fraction] 33.3 % Low 36.0-46.0 [facility] Comment on above: Performed By: #### C BC, BMP ####[place] [phone] Hemoglobin (Bld) [Mass/Vol] 10.4 g/dL Low 11.5-15.5 [facility] Comment on above: Performed By: #### C BC, BMP ####[place] [phone] MCH 31.1 pG Normal 26.0-34.0 [facility] Comment on above: Performed By: #### C BC, BMP ####[address] MCHC (RBC) [Mass/Vol] 31.2 g/dL Normal 30.5-36.0 [facility] Comment on above: Performed By: #### C BC, BMP ####[address] MCV (RBC) [Entitic vol] 99.7 fL Normal 80.0-100.0 L [facility] Comment on above: Performed By: #### C BC, BMP ####[place] [phone] Platelet mean volume (Bld) [Entitic vol] 10.8 fL Normal 9.0-12.7 [facility] Comment on above: Performed By: #### C BC, BMP ####[address] Platelets (Bld) [#/Vol] 157 10*3/uL Normal 150-400 [facility] Comment on above: Performed By: #### C BC, BMP ####[facility] [phone] RBC (Bld) [#/Vol] 3.34 10*6/uL Low 3.90-5.[address] [facility] Comment on above: Performed By: #### C BC, BMP ####[facility] WBC (Bld) [#/Vol] 10.90 10*3/uL Normal 3.70-11.00 [facility] Comment on above: Performed By: #### C BC, BMP ####[facility] [phone] CONSULT PROGon 12-20-2020 CONSULT PROG HNO ID: [id number] Author: Obinna Nichols MD Service: General Internal [...] BP Temp Temp src Pulse Resp SpO2 12/20/2019 99/62 36.8 ?C (98.2 ?F) Oral 74 [...] the patient she was advised by her cubing machine tender to hold CellCept for 1 week prior [...] meaning may be extrapolated by contextual derivation [facility] NURSING PROGon 12-20-2020 NURSING PROG O ID: [id number] Author: Court Bullock RN Service: ? Author Type: Registered Nurse Type: Nursing Progress Note Filed: 12/20/2020 6:49 PM Note Text: Nursing Progress Note Patient Name: Jesus Wolf [address] [address] [address] __ IV, recently put in by Photographic Printer under US, infiltrated. Photographic Printer text paged at this time to attempt IV with US again. This note was completed by: Court Bullock [facility] NURSING [facility] ID: [id number] Author: Court Bullock RN Service: ? Author Type: Registered Nurse Type: Nursing Progress Note Filed: 12/20/2020 5:43 PM Note Text: Nursing Progress Note Patient Name: Jesus Wolf Patient Location: [address]/[place] [address] __ Assumed care of patient at 1500. Patient [...] This note was completed by: Court Bullock [facility] THERAPY NTon 12-20-2020 THERAPY NT HNO ID: [id number] Author: Kirsty Cobb DPT Service: Physical Therapy Author Type: Physical Therapist Type: Therapy (PT/OT/Speech/Resp) Filed: 12/20/2020 3:24 PM Note Text: Physical Therapy Treatment SERVICE DATE: 12/20/2020 SERVICE TIME: 1347 to 1444 ROOM: [place] [address] Recommended Discharge Disposition: Home PT Recommended Discharge Disposition Comments: Anticipate patient to progress to home with [facility], pending progress with stair training. Declining SNF at this time. Anticipated Discharge Needs: Physical Assist at Home Physical Assist at Home for: Laundry;Cleaning;Meals ;Safety;Self Care;Shopping;Transpor tation Recommended Discharge Equipment: No equipment needs anticipated [...] Education;Self Care / Home Management;Energy Conservation Training;Joint Mobility;Strengthening ;Functional Mobility Training;Balance Training;Neuromuscular Re-education Plan for next [...] Laundry: spouse can complete Equipment Owned: Wheeled Walker;Cane;Entry Level Civil Engineer;El evated Toilet Seat Prior Functional Level: Within Functional Limits Prior Functional Level 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 Patient Report: [...] Left Lower Extremity: Step length decreased General Deviations/Observation s: Antalgic gait;Neeta decreased;Flexed trunk posture;Lateral sway increased;UE weight bearing on assistive device excessive;Improper distancing from assistive device [facility]: 7: Walk 25 feet or more Learning/Educational Needs: Discharge Plan;Equipment;Family Education/Training;Fun ctional Activities/Mobility;Pl an of Care;Changes in Larry (more content not included)... Normal [facility] Basic Metabolic Panlon 12-19 Anion gap [Moles/Vol] 9 mmol/L Normal - [facility] Comment on above: Performed By: #### B ASHWINI, CBC ####[place] [phone] Calcium [Mass/Vol] 9.3 mg/dL Normal 8.5-10.2 [facility] Comment on above: Performed By: #### Hakan MARADIAGA, CBC ####[place] [phone] Chloride [Moles/Vol] 104 mmol/L Normal 97-105 [facility] Comment on above: Performed By: #### Hakan MARADIAGA, CBC ####[place] [phone] CO2 [Moles/Vol] 24 mmol/L Normal 22-30 [facility] Comment on above: Performed By: #### B ASHWINI, CBC ####[place] [phone] Creatinine [Mass/Vol] 0.71 mg/dL Normal 0.58-0.96 [facility] Comment on above: Performed By: #### B MP, CBC ####[place] [phone] eGFR- Amer. >60 Normal >60 [facility] Comment on above: Performed By: #### B MP, CBC ####[place] [phone] eGFR-All Other Races >60 Normal >60 [facility] Comment on above: Result Comment: [...] GFR. Performed By: #### B MP, CBC ####[place] [phone] Glucose [Mass/Vol] 121 mg/dL High 74-99 [facility] Comment on above: Performed By: #### B MP, CBC ####[place] [phone] Potassium [Moles/Vol] 4.4 mmol/L Normal 3.7-5.1 [facility] Comment on above: Performed By: #### B MP, CBC ####[place] [phone] Sodium [Moles/Vol] 137 mmol/L Normal 136-144 [facility] Comment on above: Performed By: #### B MP, CBC ####[place] [phone] Urea nitrogen [Mass/Vol] 18 mg/dL Normal 7-21 [facility] Comment on above: Performed By: #### B MP, CBC ####[place] [id number] CASE MANAGEMon 12-19-2020 CASE MANAGEM HNO ID: [id number] Author: Joslyn Booker RN Service: ? Author Type: Registered Nurse Type: Care Mgt Progress Note Filed: 12/19/2020 3:36 PM Note Text: CARE MANAGEMENT PROGRESS NOTE SERVICE DATE: 12/19/2020 SERVICE TIME: 1535 LOS: 0 days Patient having nausea, no discharge today. SIGNATURE: Joslyn Booker RN PATIENT NAME: Jesus Wolf DATE: December 19, 2020 TIME: 3:35 PM PAGER/CONTACT #: [phone] [facility] CASE MGT INDAVE [place] 2020 CASE MGT INIT [place] HNO ID: [id number] Author: Joslyn Booker RN Service: ? Author Type: Registered Nurse Type: Care Mgt Initial Assessment Filed: 12/19/2020 4:42 PM Note Text: CARE MANAGEMENT PROGRESS NOTE SERVICE DATE: 12/19/2020 SERVICE TIME: 1015 LOS: 0 days Admission Date: 12/18/2020 DISCHARGE ARRANGEMENT (list agency and phone number) Discharge Arrangement: Home;Home Longterm Care: PT;OT Provider Name AND Phone: See [...] Car ADDITIONAL CONTACT RESOURCES: summary of care [place] of Choice Given: Yes Level of Care [...] to Discharge: OT/PT Evaluation;Facility or Agency Choices;Discharge Prescriptions;Acceptin g Facility Current Advance Directive: None Product Planner Attempted to Assist with AD Completion: Yes Action: Education Provided Patient assessed at this time. She lives with her and he will be transporting home. She has all DME (walker). C referral placed with [facility]. Plan is to discharge home today when all goals are met. Scripts sent to [facility]. She has no other needs. SIGNATURE: Joslyn Booker RN PATIENT NAME: Jesus Wolf DATE: December 19, 2020 TIME: 11:39 AM PAGER/CONTACT #: [phone] Normal [facility] CBCon 12-19-2020 Absolute nRBC <0.01 Normal <0.01 [facility] Comment on above: Performed By: #### B MP, CBC ####[place] [phone] Erythrocyte distribution width (RBC) [Ratio] 14.3 % Normal 11.5-15.0 [facility] Comment on above: Performed By: #### B MP, CBC ####[place] [phone] Hematocrit (Bld) [Volume fraction] 34.4 % Low 36.0-46.0 [facility] Comment on above: Performed By: #### B MP, CBC ####[place] [phone] Hemoglobin (Bld) [Mass/Vol] 10.7 g/dL Low 11.5-15.5 [facility] Comment on above: Performed By: #### B MP, CBC ####[place] [phone] MCH 30.7 pG Normal 26.0-34.0 [facility] Comment on above: Performed By: #### B MP, CBC ####[place] [phone] MCHC (RBC) [Mass/Vol] 31.1 g/dL Normal 30.5-36.0 [facility] Comment on above: Performed By: #### B MP, CBC ####[place] [phone] MCV (RBC) [Entitic vol] 98.9 fL Normal 80.0-100.0 L [facility] Comment on above: Performed By: #### B MP, CBC ####[place] [phone] Platelet mean volume (Bld) [Entitic vol] 10.7 fL Normal 9.0-12.7 [facility] Comment on above: Performed By: #### B MP, CBC ####[facility] Platelets (Bld) [#/Vol] 168 10*3/uL Normal 150-400 [facility] Comment on above: Performed By: #### B MP, CBC ####[facility] RBC (Bld) [#/Vol] 3.48 10*6/uL Low 3.90-5.[address] [facility] Comment on above: Performed By: #### B MP, CBC ####[facility] WBC (Bld) [#/Vol] 9.74 10*3/uL Normal 3.70-11.[address] [facility] Comment on above: Performed By: #### B MP, CBC ####[facility] [place] [address] CONSULT PROGon 12-19-2020 CONSULT PROG HNO ID: [id number] Author: Obinna Nichols MD Service: General Internal [...] meaning may be extrapolated by contextual derivation [facility] THERAPY NTon 12-19-2020 THERAPY NT HNO ID: [id number] Author: Ivania Hampton PT Service: Physical Therapy Author Type: Physical Therapist Type: Therapy (PT/OT/Speech/Resp) Filed: 12/19/2020 2:36 PM Note Text: PHYSICAL THERAPY MISSED VISIT SERVICE DATE: 12/19/2020 SERVICE TIME: 1431 to 1431 ROOM: [place] [address] Attempted Treatment. Patient not seen due to Illness. Pt experiencing illness with OT; pt now in deep sleep. RN reporting pt to stay overnight for monitoring. Will check back later as schedule permits. SIGNATURE: Ivania Hampton PT PATIENT NAME: Jesus Wolf DATE: December 19, 2020 TIME: 2:35 PM [facility] THERAPY NT HNO ID: [id number] Author: Lesia Garcia, OT/L Service: Occupational Therapy Author Type: Occupational Therapist Type: Therapy (PT/OT/Speech/Resp) Filed: 12/19/2020 2:28 PM Note Text: Occupational Therapy Evaluation SERVICE DATE: 12/19/2020 SERVICE TIME: 1257 to 1324 ROOM: [place] [address] Recommended Discharge Disposition: Home OT Recommended Discharge Disposition Comments: Limited due to pain, Pt. will require assist in IADLs/driving, has all DME/AE for d/c Anticipated Discharge Needs: Physical Assist at Home Physical Assist at Home for: Laundry;Cleaning;Meals ;Safety;Self Care;Shopping;Transpor tation OT 6 Clicks Score: 21 Pt. 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 Patient Report: [...] activity not attempted Learning/Educational Needs: Discharge Plan;Functional Activities/Mobility;Pl an of Care;Precautions;Rehab ilitation Techniques and Procedures;Safety;Self Care;Pain Management;Family Education/Training Goals [...] living (ADL);Muscle Weakness (generalized) Interventions Provided: Evaluation;Self Longterm Management (90997) $ Evaluation-Moderate (46673) Billed Units: 1 unit Self Longterm Management (03545) Treatment Minutes: 12 $ Self Longterm Management (75499) Billed Units: 1 unit Training AND education provided in: Activity adaption / compensatory strategies, Adaptive equipment / DME, Assistive device use, Bed mobility, Benefits of in-hospital mobility, Discharge planning, Expected functional level, Functional mobility involving ADL's, Lower extremity dressing, Pain management, Precautions/restrictio ns, Role of Occupational Therapy, Positioning, Sitting balance to improve independence with ADLs/self-care, Standing balance to improve independence wi (more content not included)... [facility] THERAPY NT HNO ID: [id number] Author: Ivania Hampton, PT Service: Physical Therapy Author Type: Physical Therapist Type: Therapy (PT/OT/Speech/Resp) Filed: 12/19/2020 11:40 AM Note Text: Physical Therapy Evaluation SERVICE DATE: 12/19/2020 SERVICE TIME: 939 to 1014 ROOM: [place] [address] Recommended Discharge Disposition: Home PT Recommended Discharge Disposition Comments: anticipate HH PT; pending pt ability to a/d 3 steps and pain management. Anticipated Discharge Needs: Physical Assist at Home Physical Assist at Home for: Cleaning;Laundry;Meals ;Shopping;Transportati on Recommended Discharge Equipment: No equipment needs anticipated [...] Education;Self Care / Home Management;Energy Conservation Training;Joint Mobility;Strengthening ;Functional Mobility Training;Balance Training;Neuromuscular Re-education Plan for next visit: Stairs training, Gait training, Walker Training Home Environment Patient Lives With: Spouse Assistance Available: 24 Hour Entry To Home: Stairs;With Rail Number Of Stairs Into Home: 3 Number Of Stairs To Bed/Bath: 0- 1 level home Tub/Shower Type: tub/shower combo; with shower bench Laundry: spouse can complete Equipment Owned: Wheeled Walker;Cane;Entry Level Civil Engineer;El evated Toilet Seat Prior Functional Level: Within Functional Limits Prior Functional Level 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 Patient Report: [...] Right Lower Extremity: Stance time decreased General Deviations/Observation s: Antalgic gait;Neeta decreased;Flexed trunk posture -M: 7: Walk 25 feet or more Learning/Educational Needs: Discharge Plan;Equipment;Family Education/Training;Fun ctional Activities/Mobility;Pl an of Care;Changes in Plan of Care;Pain Management;Precautions ;Safety Goals for Plan of Care: Patient /Caregiver [...] with: Patient TREATMENT INTERVENTIONS: Therapy Diagnosis: Difficulty walking-musculoskeleta l Interventions Provided: Evaluation;Gait Training (37721) $ Evaluation-Low (17277) Billed Units: 1 unit Gait Training (11720) Treatment Minutes: 16 $ Gait Training (23263) Billed Units: 1 unit Training AND education provided in: Advanced balance activities, Anatomy and impact on deficits, Assistive device use, Bed mobility, Exercise program, Gait pattern, reduction of deviations, Home safety, Precautions/restrictio ns, Patient Exercise/Therapy program support needs, Role of [...] therapy evaluation/treatment. SI (more content not included)... [facility] ALLIED HEALTHon 12-18-2020 ALLIED HEALTH HNO ID: [id number] Author: Olga Melendez RT(R) Service: Radiology Author Type: Cell Technician Type: Allied Health Filed: 12/18/2020 1:21 PM [...] PERIPHERAL IV DATA: Not applicable SIGNED BY: Mason Livingston RT(R) December 18, 2020 1:20 PM [facility] POSTPROC EVALon 021 ANES POSTPROC EVAL HNO ID: [id number] Author: My Olivas MD Service: Anesthesiology Author Type: Anesthesiologist Type: Anesthesia Postprocedure Evaluation Filed: 12/18/2020 4:23 PM Note Text: POST ANESTHESIA EVALUATION NOTE : 1955 Procedure Summary Date: 12/18/20 Room / Location: [place] [address] / OR Anesthesia Start: 1014 Anesthesia Stop: [...] December 18, 2020 TIME: 4:23 PM CSN: [id number] [facility] ANES PRE-OPon 12-18-2020 ANES PRE-OP HNO ID: [id number] Author: Russell Roman MD Service: Anesthesiology Author [...] Vitals Value Taken Time BP 115/50 12/18/20 08 Pulse 70 12/18/20803 Resp 16 12/18/20803 Temp 36.7 ?C (98.1 [...] interviewed a (more content not included)... Normal [facility] Basic Metabolic Panlon 12-18 Anion gap [Moles/Vol] 8 mmol/L Low -18 [facility] Comment on above: Performed By: #### C JACKIE, TRISTA ####[place] [address] [address] [phone] Calcium [Mass/Vol] 9.2 mg/dL Normal 8.5-10.2 [facility] Comment on above: Performed By: #### C JACKIE, BMP ####[place] [phone] Chloride [Moles/Vol] 110 mmol/L High 97-105 [facility] Comment on above: Performed By: #### C BC, BMP ####[address] CO2 [Moles/Vol] 23 mmol/L Normal 22-30 [facility] Comment on above: Performed By: #### C BC, BMP ####[address] Creatinine [Mass/Vol] 0.72 mg/dL Normal 0.58-0.96 [facility] Comment on above: Performed By: #### C JACKIE, BMP ####[place] [phone] eGFR- Amer. >60 Normal >60 [facility] Comment on above: Performed By: #### C JACKIE, BMP ####[address] eGFR-All Other Races >60 Normal >60 [facility] Comment on above: Result Comment: [...] GFR. Performed By: #### C BC, BMP ####[address] Glucose [Mass/Vol] 104 mg/dL High 74-99 [facility] Comment on above: Performed By: #### C BC, BMP ####[place] [phone] Potassium [Moles/Vol] 4.2 mmol/L Normal 3.7-5.1 [facility] Comment on above: Performed By: #### C BC, BMP ####[address] Sodium [Moles/Vol] 141 mmol/L Normal 136-144 [facility] Comment on above: Performed By: #### C BC, BMP ####[address] Urea nitrogen [Mass/Vol] 12 mg/dL Normal 7-21 [facility] Comment on above: Performed By: #### C BC, BMP ####[place] [phone] CBCon 12-18-2020 Absolute nRBC <0.01 Normal <0.01 [facility] Comment on above: Performed By: #### C BC, BMP ####[place] [phone] Erythrocyte distribution width (RBC) [Ratio] 14.1 % Normal 11.5-15.0 [facility] Comment on above: Performed By: #### C BC, BMP ####[address] Hematocrit (Bld) [Volume fraction] 38.2 % Normal 36.0-46.0 [facility] Comment on above: Performed By: #### C BC, BMP ####[address] Hemoglobin (Bld) [Mass/Vol] 12.1 g/dL Normal 11.5-15.5 [facility] Comment on above: Performed By: #### C BC, BMP ####[address] MCH 32.0 pG Normal 26.0-34.0 [facility] Comment on above: Performed By: #### C BC, BMP ####[address] MCHC (RBC) [Mass/Vol] 31.7 g/dL Normal 30.5-36.0 [facility] Comment on above: Performed By: #### C BC, BMP ####[address] MCV (RBC) [Entitic vol] 101.1 fL High 80.0-100.0 L [facility] Comment on above: Performed By: #### C BC, BMP ####[address] Platelet mean volume (Bld) [Entitic vol] 9.7 fL Normal 9.0-12.7 [facility] Comment on above: Performed By: #### C BC, BMP ####[address] Platelets (Bld) [#/Vol] 177 10*3/uL Normal 150-400 [facility] Comment on above: Performed By: #### C BC, BMP ####[place] [address] [address] RBC (Bld) [#/Vol] 3.78 10*6/uL Low 3.90-5.[address] [facility] Comment on above: Performed By: #### C BC, BMP ####[address] WBC (Bld) [#/Vol] 8.22 10*3/uL Normal 3.70-11.[address] [facility] Comment on above: Performed By: #### C BC, BMP ####[address] CONSULTon 12-18-2020 CONSULT HNO ID: [id number] Author: Obinna Nichols MD Service: General Internal [...] RIGHT WRIST surgical correction - COLONOSCOPY 05/10/2019 [facility] - COLONOSCOPY GEN ANES 07/23/2020 Dr. Reinoso/Diverticulosis/H emorrhoids/ Ulcerative Colitis/Rpt in 2 yrs. - EGD EUS 01/11/2020 [facility] - LASIK Right prior to [...] - VERIFY patch OTHER q 8 H Derrick Fermin PA-C - scopolamine - REMOVE PATCH [...] (ALDACTONE) 50 mg ORAL DAILY Jania Glover APRN.BLOWER INSULATOR - [START ON 12/19/2020] pantoprazole DR 40 [...] (ANCEF) 1 g INTRAVENOUS q 8 HR oJse Lovelace Jr., MD Stopped at 12/18/201833 - keTORolac 15 mg injection (TORADOL) 15 mg INTRAVENOUS q 6 H Jose Lovelace Jr., MD 15 mg at 12/18/20 1804 - [START ON 12/19/2020] apixaban 5 mg [...] ORAL DAILY AT 6 PM Jania Glover APRN.BLOWER INSULATOR 100 mg at 12/18/202032 - furosemide 20 mg tab(s) (LASIX) 20 mg ORAL DAILY Obinna Nichols MD ALLERGIES Allergen Reactions - Dofetilide Other: See Comments, Anaph (more content not included)... Normal [facility] Confirm Blood Typeon 021 ABO/RH(D) Positive [facility] Comment on above: Performed By: #### C ONABO #### [facility] [address] [address] NURSING PROGon 12-18-2020 NURSING PROG HNO ID: [id number] Author: Court Bullock RN Service: ? Author Type: Registered Nurse Type: Nursing Progress Note Filed: 12/18/2020 3:16 PM Note Text: Nursing Progress Note Patient Name: Jesus Wolf Patient Location: [address]/[facility]- __ Patient transferred from PACU to room 518-1 in stable condition at this time. Patient is alert and oriented x 3. Vital signs stable. Patient educated regarding 5D/unit environment, call light, fall precautions, incentive spirometer and pain management. Patient verbalizes understanding. This note was completed by: Court Bullock [facility] NURSING PROG HNO ID: [id number] Author: Sayda Luis, RN Service: ? Author Type: Registered Nurse Type: Nursing Progress Note Filed: 12/18/2020 12:26 PM Note Text: Discharge Status: Patient is Drowsy, and has no airway issues. Skin condition was WNL. Warm blankets provided. Bilateral heel pads in place. Transported to recovery room via bed with siderails up. Accompanied by Alexei Lovelace ECONOMIC DEVELOPMENT DIRECTOR AND PAC [facility] OPERATIVE NOon 12-18-2020 OPERATIVE NO HNO ID: [id number] Author: Jose Lovelace Jr., MD Service: Orthopaedic Surgery Author Type: Physician Type: Operative Report Filed: 12/18/2020 12:13 PM Note Text: [facility] OPERATIVE REPORT PATIENT NAME: Jesus Wolf AGE: [age] year old LOG ID: [id number] Surgery Date: 12/18/2020 SURGEON: Jose Lovelace M.D. MUSIC COMPOSER: Derrick Fermin PA-C his assistance consisted of [...] banked allogenic blood if medically necessary. IMPLANTS: [employer] Total Hip System SIZE TYPE Acetabulum [...] dislocated. Proximal femoral osteotomy was performed. The box finisher osteotome was utilized to lateralize the starting [...] an interrupted 2-0 (more content not included)... [facility] XR PELVIS 1V APon 12-18-2020 XR [...] Left superior pelvis not included in the [id number]. IMPRESSION: Postoperative changes of right total hip arthroplasty without hardware complication. Farm Management Adviser: PSCB Transcribe Date/Time: Dec 18 2020 1:29P Dictated by : OBED ECHEVERRIA MD This examination was interpreted and the report reviewed and electronically signed by: OBED ECHEVERRIA MD on Dec 18 2020 1:31PM EST [id number] [facility] Hemoglobin A1con 12-06-2020 Glucose [Mass/Vol] 111 mg/dL Normal [facility] Comment on above: Result Comment: eAG: (Estimated average glucose) is a calculated value from HgbA1c and is vaccine customer representative of the average blood glucose level in the last 2-3 month period. Performed By: #### H BA1C ####[place] [phone] HbA1c (Bld) [Mass fraction] 5.5 % Normal 4.3-5.6 [facility] Comment on above: Result Comment: [facility] Diabetes Association guidelines indicate that patients with HgbA1c in the range 5.7-6.4% are at increased risk for development of diabetes, and intervention by lifestyle modification may be beneficial. HgbA1c greater or equal to 6.5% is considered diagnostic of diabetes. Performed By: #### H BA1C ####[place] [phone] Type and SCR (30D)on 021 ABO/RH(D) Positive [facility] Comment on above: Performed By: #### T SCR30 #### [facility] [address] [place] [address] Urinalysis with Microscopico n 12-06-2020 Bilirubin, Urine Negative Normal Negative [facility] Comment on above: Performed By: #### U AWMIC ####[place] [phone] Cast SEE COMMENT Critically abnormal 0 [facility] Comment on above: Result Comment: 10 Hyaline Cast Performed By: #### U AWMIC ####[place] [phone] Clarity (U) Clear Normal Clear [facility] Comment on above: Performed By: #### U AWMIC ####[place] [phone] Color (U) Light Yellow Critically abnormal Yellow [facility] Comment on above: Performed By: #### U AWMIC ####[place] [address] [address] [phone] Comments SEE COMMENT [facility] Comment on above: Result Comment: N/A Performed By: #### U AWMIC ####[place] [address] [address] [phone] Epithelial cells LM Ql (Urine sed) SEE COMMENT [facility] Comment on above: Result Comment: Few Squamous Epithelial Cells Performed By: #### U AWMIC ####[place] [address] [address] [phone] Glucose Ql (U) Negative Normal [facility] Comment on above: Performed By: #### U AWMIC ####[place] [address] [address] [place] [phone] Hemoglobin/Blood,Ur Negative Normal [facility] Comment on above: Performed By: #### U AWMIC ####[place] [address] [address] [place] [phone] Ketones Ql (U) Negative Normal [facility] Comment on above: Performed By: #### U AWMIC ####[place] [address] [address] [place] [phone] Leukest Trace Critically abnormal [facility] Comment on above: Performed By: #### U AWMIC ####[place] [address] [address] [phone] Nitrite Ql (U) Negative Normal [facility] Comment on above: Performed By: #### U AWMIC ####[place] [address] [address] [place] [phone] pH (U) 6.0 [pH] Normal 5.0-8.0 [facility] Comment on above: Performed By: #### U AWMIC ####[place] [address] [address] [place] [phone] Protein, Urine Negative Normal Negative [facility] Comment on above: Performed By: #### U AWMIC ####[place] [id number] [place] [phone] RBC 0-3 Normal 0-3 [facility] Comment on above: Performed By: #### U AWMIC ####[place] [phone] Specific [place], Ur 1.011 Normal 1.005-1.030 [facility] Comment on above: Performed By: #### U AWMIC ####[place] [address] [place] [phone] Urine Neil Comment SEE COMMENT Normal [facility] Comment on above: Result Comment: Resu lt rechecked. Performed By: #### U AWMIC ####[place] [phone] Urobilinogen (U) [Mass/Vol] Negative Normal Negative [facility] Comment on above: Performed By: #### U AWMIC ####[place] [phone] WBC 0-5 Normal 0-5 [facility] Comment on above: Performed By: #### U AWMIC ####[address] [phone] Urine Cultureon 12-06-2020 Bacteria identified Cx Nom [...] F Ertapenem SUSCEPTIBLE <=0.5 F Critically abnormal [facility] Comment on above: Performed By: #### U RCUL ####[facility] [address] [place], [place] [phone] ABD RT UPPER QUADRANTon 0 09-03-2020 [facility] Prothrombin Timeon 9 INR Coag RelTime (PPP) 1.47 {INR} High 0.90-1.10 [facility] Comment on above: Performed By: #### 3 [id number] #### [facility] [address] [place] [address] Prothrombin time (PT) Coag time (PPP) 16.8 s High 9.7-12.7 [facility] Comment on above: Result Comment: PLEA SE NOTE NEW REFERENCE RANGE EFFECTIVE 2018 Performed By: #### 3 [id number] #### [facility] [address] [place] [address] Prothrombin Timeon 9 INR Coag RelTime (PPP) 2.23 {INR} High 0.90-1.10 [facility] Comment on above: Performed By: #### 3 [id number] #### [facility] [address] [place] [address] Prothrombin time (PT) Coag time (PPP) 25.6 s High 9.7-12.7 [facility] Comment on above: Result Comment: PLEA SE NOTE NEW REFERENCE RANGE EFFECTIVE 2018 Performed By: #### 3 [id number] #### [facility] [address] [place] [address] Vital Signs Date Time Vital Sign Value Performing Clinician Facility 11-09-2023 09:34-0400 Body height 170.2 cm Kalyn Anthony LPN [facility] 11-09-2023 09:34-0400 Body mass index (BMI) [Ratio] 41.35 kg/m2 [facility] 11-09-2023 09:34-0400 Body weight 119.75 kg [facility] 11-09-2023 09:34-0400 Diastolic blood pressure 78 mm[Hg] [facility] 11-09-2023 09:34-0400 Heart rate 90 /min [facility] 11-09-2023 09:34-0400 SaO2% (BldA) [Mass fraction] 94 % [facility] 11-09-2023 09:34-0400 Systolic blood pressure 124 mm[Hg] [facility] 10-29-2023 08:49-0400 Body height 170.2 cm Yuriy Conway MD Work Phone: [facility] 10-29-2023 08:49-0400 Body mass index (BMI) [Ratio] 40.72 kg/m2 Yuriy Conway MD Work Phone: [facility] 10-29-2023 08:49-0400 Body weight 117.94 kg Yuriy Conway MD Work Phone: [facility] 10-29-2023 08:49-0400 Diastolic blood pressure 58 mm[Hg] Yuriy Conway MD Work Phone: [facility] 10-29-2023 08:49-0400 Heart rate 96 /min Yuriy Conway MD Work Phone: [facility] 10-29-2023 08:49-0400 Systolic blood pressure 110 mm[Hg] Yuriy Conway MD Work Phone: [facility] 10-13-2023 10:41-0500 Body height 168.9 cm Julia Ann PA-C Work Phone: [facility] 10-13-2023 10:41-0500 Body temperature 98.2 [degF] Julia Ann PA-C Work Phone: [facility] 10-13-2023 10:41-0500 Body weight 120.7 kg Juliacathy Dennisanda PA-C Work Phone: [facility] 10-13-2023 10:41-0500 Diastolic blood pressure 74 mm[Hg] Juliacathy Dennisanda PA-C Work Phone: [facility] 10-13-2023 10:41-0500 Heart rate 90 /min Julia Rosetta PA-C Work Phone: [facility] 10-13-2023 10:41-0500 Systolic blood pressure 114 mm[Hg] Julia Dennisanda PA-C Work Phone: [facility] 10-01-2023 09:31-0500 Body temperature 98.1 [degF] Rheu Digna Work Phone: [facility] 10-01-2023 09:31-0500 Body weight 117.8 kg Rheu Digna Work Phone: [facility] 10-01-2023 09:31-0500 Diastolic blood pressure 79 mm[Hg] Rheu Digna Work Phone: [facility] 10-01-2023 09:31-0500 Heart rate 92 /min Rheu Digna Work Phone: [facility] 10-01-2023 09:31-0500 SaO2% (BldA) [Mass fraction] 98 % Rheu Digna Work Phone: [facility] 10-01-2023 09:31-0500 Systolic blood pressure 137 mm[Hg] Rheu Digna Work Phone: [facility] [facility]-2023 09:45-0500 Heart rate 119 /min Yuriy Conway MD Work Phone: [facility] [place] 09-17-2023 09:11-0500 Body height 170.2 cm Yuriy Conway MD Work Phone: [facility] [place] 09-17-2023 09:11-0500 Body mass index (BMI) [Ratio] 40.72 kg/m2 Yuriy Conway MD Work Phone: [facility] [place] 09-17-2023 09:11-0500 Body weight 117.94 kg Yuriy Conway MD Work Phone: [facility] [place] 09-17-2023 09:11-0500 Diastolic blood pressure 70 mm[Hg] Yuriy Conway MD Work Phone: [facility] [place] 09-17-2023 09:11-0500 Systolic blood pressure 98 mm[Hg] Yuriy Conway MD Work Phone: [facility] [place] 09-01-2023 13:15-0500 Body height 170.2 cm Jania Saeed 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: [facility] [place] [facility] 09-01-2023 13:15-0500 Body mass index (BMI) [Ratio] 40.5 kg/m2 Jania Saeed APRN-TONGUE AND GROOVE MACHINE OPERATOR Work Phone: [facility] [place] [facility] 09-01-2023 13:15-0500 Body temperature 97.39 [degF] Jania Saeed 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 09-01-2023 13:15-0500 Body weight 117.3 kg Jania Saeed 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 09-01-2023 13:15-0500 Diastolic blood pressure 70 mm[Hg] Jania Saeed APRN-TONGUE AND GROOVE MACHINE OPERATOR [facility] Phone[facility] 09-01-2023 13:15-0500 Heart rate 64 /min Jania Saeed APRN-TONGUE AND GROOVE MACHINE OPERATOR [facility] Phone[facility] 09-01-2023 13:15-0500 SaO2% (BldA) [Mass fraction] 98 % Jania Saeed 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[facility] 09-01-2023 13:15-0500 Systolic blood pressure 110 mm[Hg] Jania Saeed 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: [facility] 07-01-2023 09:00-0500 Body temperature 98.1 [degF] Rheu Digna Work Phone: [facility] 07-01-2023 09:00-0500 Body weight 117.48 kg Rheu Digna Work Phone: [facility] 07-01-2023 09:00-0500 Diastolic blood pressure 56 mm[Hg] Rheu Digna Work Phone: [facility] 07-01-2023 09:00-0500 Heart rate 69 /min Rheu Digna Work Phone: [facility] 07-01-2023 09:00-0500 Respiratory rate 18 /min Rheu Digna Work Phone: [facility] 07-01-2023 09:00-0500 Systolic blood pressure 137 mm[Hg] Rheu Digna Work Phone: [facility] 04-15-2023 08:59-0400 Body weight 115.21 kg Dione Reinoso MD Work Phone: [facility] 04-15-2023 08:59-0400 Diastolic blood pressure 85 mm[Hg] Dione Reinoso MD Work Phone: [facility] 04-15-2023 08:59-0400 Heart rate 70 /min Dione Reinoso MD Work Phone: [facility] 04-15-2023 08:59-0400 Systolic blood pressure 142 mm[Hg] Dione Reinoso MD Work Phone: [facility] 04-02-2023 08:40-0400 Diastolic blood pressure 74 mm[Hg] Dione Reinoso MD Work Phone: [facility] 04-02-2023 08:40-0400 Heart rate 75 /min Dione Reinoso MD Work Phone: [facility] 04-02-2023 08:40-0400 Respiratory rate 16 /min Dione Reinoso MD Work Phone: [facility] 04-02-2023 08:40-0400 SaO2% (BldA) [Mass fraction] 96 % Dione Reinoso MD Work Phone: [facility] 04-02-2023 08:40-0400 Systolic blood pressure 147 mm[Hg] Dione Reinoso MD Work Phone: [facility] 04-02-2023 08:10-0400 Body temperature 99.81 [degF] Dione Reinoso MD Work Phone: [facility] 03-19-2023 10:02-0400 Body temperature 97.2 [degF] Rheu Digna Work Phone: [facility] 03-19-2023 10:02-0400 Body weight 115.67 kg Rheu Digna Work Phone: [facility] 03-19-2023 10:02-0400 Diastolic blood pressure 63 mm[Hg] Rheu Digna Work Phone: [facility] 03-19-2023 10:02-0400 Heart rate 66 /min Rheu Digna Work Phone: [facility] 03-19-2023 10:02-0400 SaO2% (BldA) [Mass fraction] 97 % Rheu Digna Work Phone: [facility] 03-19-2023 10:02-0400 Systolic blood pressure 127 mm[Hg] Rheu Digna Work Phone: [facility] 02-04-2023 13:14-0400 Body temperature 97 [degF] Nadege Hawkins DO Work Phone: [facility] 02-04-2023 13:14-0400 Body weight 113.4 kg Nadege Hawkins DO Work Phone: [facility] 02-04-2023 13:14-0400 Diastolic blood pressure 54 mm[Hg] Nadege Hawkins DO Work Phone: [facility] 02-04-2023 13:14-0400 Heart rate 72 /min Nadege Hawkins DO Work Phone: [facility] 02-04-2023 13:14-0400 Systolic blood pressure 116 mm[Hg] Nadege Hawkins DO Work Phone: [facility] 12-15-2022 13:00-0400 Diastolic blood pressure 73 mm[Hg] Rheu Digna Work Phone: [facility] 12-15-2022 13:00-0400 Heart rate 88 /min Rheu Digna Work Phone: [facility] 12-15-2022 13:00-0400 Systolic blood pressure 126 mm[Hg] Rheu Digna Work Phone: [facility] 12-15-2022 10:00-0400 Body temperature 97 [degF] Rheu Digna Work Phone: [facility] 12-15-2022 10:00-0400 Body weight 113.4 kg Rheu Digna Work Phone: [facility] 12-15-2022 10:00-0400 Respiratory rate 18 /min Rheu Digna Work Phone: [facility] 09-17-2022 08:45-0500 65 1 Wojciech Treviño Work Phone: [facility] [place] [id number] Work Phone: Comment on above: [id number] 09-15-2022 13:15-0500 Diastolic blood pressure 63 mm[Hg] Rheu Digna Work Phone: [facility] 09-15-2022 13:15-0500 Heart rate 75 /min Rheu Digna Work Phone: [facility] 09-15-2022 13:15-0500 Respiratory rate 18 /min Rheu Digna Work Phone: [facility] 09-15-2022 13:15-0500 Systolic blood pressure 98 mm[Hg] Rheu Digna Work Phone: [facility] 09-15-2022 10:10-0500 Body temperature 97.39 [degF] Rheu Digna Work Phone: [facility] 09-15-2022 10:10-0500 Body weight 111.13 kg Rheu Digna Work Phone: [facility] 08-15-2022 10:00-0500 62 1 Wojciech G Furlong Work Phone: [facility] 600 DO Work Phone: Comment on above: [id number] 08-01-2022 10:00-0500 Body height 170.18 cm Wojciech G Furlong Work Phone: [facility] [employer] 250 DO Work Phone: 08-01-2022 10:00-0500 Body mass index (BMI) [Ratio] 38.69 kg/m2 Wojciech G Furlong Work Phone: [facility] [employer] 250 DO Work Phone: 08-01-2022 10:00-0500 Body surface area Derived from formula 2.21 m2 Wojciech G Furlong Work Phone: [facility] [employer] 250 DO Work Phone: 08-01-2022 10:00-0500 Body weight 112.04 kg Wojciech G Furlong Work Phone: [facility] 250 DO Work Phone: 08-01-2022 10:00-0500 Diastolic blood pressure 68 mm[Hg] Wojciech G Furlong Work Phone: [facility] 250 DO Work Phone: 08-01-2022 10:00-0500 Heart rate 72 /min Wojciech G Furlong Work Phone: [facility] 250 DO Work Phone: 08-01-2022 10:00-0500 Systolic blood pressure 108 mm[Hg] Wojciech G Furlong Work Phone: [facility] 250 DO Work Phone: 07-31-2022 08:49-0500 Body height 167.6 cm Pacc 2 Work Phone: [facility] 07-31-2022 08:49-0500 Body temperature 97 [degF] Pacc 2 Work Phone: [facility] 07-31-2022 08:49-0500 Body weight 111.58 kg Pacc 2 Work Phone: [facility] 07-31-2022 08:49-0500 Diastolic blood pressure 92 mm[Hg] Pacc 2 Work Phone: [facility] 07-31-2022 08:49-0500 Heart rate 79 /min Pacc 2 Work Phone: [facility] 07-31-2022 08:49-0500 Respiratory rate 16 /min Pacc 2 Work Phone: [facility] 07-31-2022 08:49-0500 SaO2% (BldA) [Mass fraction] 99 % Pacc 2 Work Phone: [facility] 07-31-2022 08:49-0500 Systolic blood pressure 136 mm[Hg] Pacc 2 Work Phone: [facility] 07-07-2022 11:56-0500 Body height 170.2 cm Bryan Painting MD Work Phone: [facility] 07-07-2022 11:56-0500 Body weight 116.39 kg Bryan Painting MD Work Phone: [facility] 07-07-2022 11:56-0500 Diastolic blood pressure 48 mm[Hg] rByan Painting MD Work Phone: [facility] 07-07-2022 11:56-0500 Heart rate 80 /min Bryan Painting MD Work Phone: [facility] 07-07-2022 11:56-0500 Systolic blood pressure 124 mm[Hg] Bryan Painting MD Work Phone: [facility] 06-12-2022 15:30-0400 Diastolic blood pressure 58 mm[Hg] Rheu Main Work Phone: [facility] 06-12-2022 15:30-0400 Heart rate 72 /min Rheu Main Work Phone: [facility] 06-12-2022 15:30-0400 Systolic blood pressure 114 mm[Hg] Rheu Main Work Phone: [facility] 06-12-2022 12:45-0400 Body temperature 97.39 [degF] Rheu Main Work Phone: [facility] 06-11-2022 14:38-0400 Body weight 114.72 kg Lemuel Davis MD Work Phone: [facility] 06-11-2022 14:38-0400 Diastolic blood pressure 64 mm[Hg] Lemuel Davis MD Work Phone: [facility] 06-11-2022 14:38-0400 Heart rate 75 /min Lemuel Davis MD Work Phone: [facility] 06-11-2022 14:38-0400 Systolic blood pressure 112 mm[Hg] Lemuel Davis MD Work Phone: [facility] 04-18-2022 15:53-0400 Body height 170.2 cm Julia RUIZ-C Work Phone: [facility] 04-18-2022 15:53-0400 Body temperature 97.3 [degF] Julia Peña PA-C Work Phone: [facility] 04-18-2022 15:53-0400 Body weight 114.72 kg Julia Peña PA-C Work Phone: [facility] 04-18-2022 15:53-0400 Diastolic blood pressure 67 mm[Hg] Julia Peña PA-C Work Phone: [facility] 04-18-2022 15:53-0400 Heart rate 73 /min Julia Peña PA-C Work Phone: [facility] 04-18-2022 15:53-0400 Systolic blood pressure 122 mm[Hg] Julia Peña PA-C Work Phone: [facility] 03-13-2022 14:30-0400 Diastolic blood pressure 50 mm[Hg] Rheu Main Work Phone: [facility] 03-13-2022 14:30-0400 Heart rate 68 /min Rheu Main Work Phone: [facility] 03-13-2022 14:30-0400 Systolic blood pressure 97 mm[Hg] Rheu Main Work Phone: [facility] 03-13-2022 11:43-0400 Body temperature 97.81 [degF] Rheu Main Work Phone: [facility] 03-13-2022 11:12-0400 Body temperature 96.91 [degF] Evelin Alicea MD Work Phone: [facility] 03-13-2022 11:12-0400 Body weight 115.39 kg Evelin Alicea MD Work Phone: [facility] 03-13-2022 11:12-0400 Diastolic blood pressure 50 mm[Hg] Evelin Alicea MD Work Phone: [facility] 03-13-2022 11:12-0400 Heart rate 67 /min Evelin Alicea MD Work Phone: [facility] 03-13-2022 11:12-0400 Systolic blood pressure 121 mm[Hg] Evelin Alicea MD Work Phone: [facility] 02-13-2022 16:10-0400 Body height 170.18 cm DO Wojciech [employer] Work Phone: [facility] 02-13-2022 16:10-0400 Body mass index (BMI) [Ratio] 39.4 kg/m2 DO Wojciech Furlong Work Phone: [facility] 02-13-2022 16:10-0400 Body temperature 97.7 [degF] DO Wojciech Furlong Work Phone: [facility] 02-13-2022 16:10-0400 Body weight 114.3 kg DO Wojciech Furlong Work Phone: [facility] 02-13-2022 16:10-0400 Diastolic blood pressure 103 mm[Hg] DO Wojciech Furlong Work Phone: [facility] 02-13-2022 16:10-0400 Heart rate 100 /min DO Wojciech Furlong Work Phone: [facility] 02-13-2022 16:10-0400 Respiratory rate 18 /min DO Wojciech Furlong Work Phone: [facility] 02-13-2022 16:10-0400 SaO2% (BldA) [Mass fraction] 98 % DO Wojciech Furlong Work Phone: [facility] 02-13-2022 16:10-0400 Systolic blood pressure 127 mm[Hg] DO Wojciech Furlong Work Phone: [facility] 02-09-2022 08:00-0400 Body temperature 97.9 [degF] DO Wojciech Furlong Work Phone: [facility] 02-09-2022 08:00-0400 Diastolic blood pressure 71 mm[Hg] DO Wojciech Furlong Work Phone: [facility] 02-09-2022 08:00-0400 Heart rate 71 /min DO Wojciech Furlong Work Phone: [facility] 02-09-2022 08:00-0400 Respiratory rate 18 /min DO Wojciech Furlong Work Phone: [facility] 02-09-2022 08:00-0400 SaO2% (BldA) [Mass fraction] 94 % DO Wojciech Furlong Work Phone: [facility] 02-09-2022 08:00-0400 Systolic blood pressure 123 mm[Hg] DO Wojciech Furlong Work Phone: [facility] 02-09-2022 05:37-0400 Body weight 115.1 kg DO Wojciech Furlong Work Phone: [facility] 02-07-2022 20:42-0400 Body height 167.64 cm DO Wojciech Furlong Work Phone: [facility] 02-07-2022 20:42-0400 Body mass index (BMI) [Ratio] 41.3 kg/m2 DO Wojciech Furlong Work Phone: [facility] 02-07-2022 19:13-0400 Diastolic blood pressure 53 mm[Hg] DO Wojciech Furlong Work Phone: [facility] 02-07-2022 19:13-0400 Heart rate 75 /min DO Wojciech Furlong Work Phone: [facility] 02-07-2022 19:13-0400 Respiratory rate 18 /min DO Wojciech Furlong Work Phone: [facility] 02-07-2022 19:13-0400 SaO2% (BldA) [Mass fraction] 98 % DO Wojciech Furlong Work Phone: [facility] 02-07-2022 19:13-0400 Systolic blood pressure 120 mm[Hg] DO Wojciech Furlong Work Phone: [facility] 02-07-2022 11:48-0400 Body temperature 98.1 [degF] DO Wojciech Furlong Work Phone: [facility] 02-07-2022 11:47-0400 Body height 167.64 cm DO Wojciech Furlong Work Phone: [facility] 02-07-2022 11:47-0400 Body mass index (BMI) [Ratio] 41.1 kg/m2 DO Wojciech Treviño Work Phone: [facility] 02-07-2022 11:47-0400 Body weight 115.66 kg DO Wojciech Treviño Work Phone: [facility] 12-09-2021 14:45-0400 Diastolic blood pressure 62 mm[Hg] Rheu Main Work Phone: [facility] 12-09-2021 14:45-0400 Heart rate 75 /min Rheu Main Work Phone: [facility] 12-09-2021 14:45-0400 Systolic blood pressure 103 mm[Hg] Rheu Main Work Phone: [facility] 12-09-2021 12:00-0400 Body temperature 97.3 [degF] Rheu Main Work Phone: [facility] 09-12-2021 08:50-0500 Diastolic blood pressure 64 mm[Hg] Dione Reinoso MD Work Phone: [facility] 09-12-2021 08:50-0500 Heart rate 66 /min Dione Reinoso MD Work Phone: [facility] 09-12-2021 08:50-0500 Respiratory rate 16 /min Dione Reinoso MD Work Phone: [facility] 09-12-2021 08:50-0500 SaO2% (BldA) [Mass fraction] 97 % Dione Reinoso MD Work Phone: [facility] 09-12-2021 08:50-0500 Systolic blood pressure 144 mm[Hg] Dione Reinoso MD Work Phone: [facility] 09-12-2021 08:24-0500 Body temperature 97.39 [degF] Dione Reinoso MD Work Phone: [facility] Encounters Encounter Date Encounter Type Care Provider Facility Start: 11-09-2023 End: 11-09-2023 ambulatory [facility] Ambulatory Start: 11-09-2023 End: 11-09-2023 Professional / ancillary services management Kalyn Anthony LPN [facility] Comment on above: Paroxysmal atrial fi brillation (CMS/HCC) Start: 10-29-2023 End: 10-29-2023 ambulatory [facility] Ambulatory Start: 10-29-2023 End: 10-29-2023 Office outpatient visit 25 minutes Yuriy Conway MD Work Phone: [facility] Comment on above: Paroxysmal atrial fi brillation (CMS/HCC) (Primary Dx); High risk medication use; Essential hypertension; MCC current use of anticoagulant therapy; Obstructive sleep apnea; BMI 40.0-44.9, adult (CMS/HCC); Never smoked any substance; Systemic lupus erythematosus, unspecified SLE type, unspecified organ involvement status (CMS/HCC) Start: 10-27-2023 Telephone encounter Nadege sosa DO Work Phone: Rheumatology Comment on above: Results Start: 10-23-2023 ambulatory RIMA MCALLISTER Facilit y:[facility] Start: 10-23-2023 End: 10-23-2023 Subsequent hospital visit by physician [facility] (Istat/1.5) Work Phone: [facility] Radiology MRI Comment on above: Pancreatic cyst [K86 .2] Start: 10-13-2023 End: 10-14-2023 ambulatory JULIA ANN Facility:[facility] Start: 10-13-2023 End: 10-13-2023 Patient encounter procedure Julia Ann PA-C Work Phone: [facility] Comment on above: Osteopenia, unspecif ied location (Primary Dx); S/P parathyroidectomy; 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; Vitamin D deficiency disease Start: 10-09-2023 End: 10-09-2023 ambulatory BEVERLY FRANCO Facility:[facility] Start: 10-09-2023 End: 10-09-2023 Patient encounter procedure Beverly Franco DPM Work Phone: Podiatry Comment on above: Pre-ulcerative callu ses (Primary Dx); Osteoarthritis of midtarsal joint of left foot; Osteoarthritis of midtarsal joint of right foot Start: 10-01-2023 End: 10-01-2023 ambulatory WOJCIECH TREVIÑO Facility:[facility] Start: 10-01-2023 End: 10-01-2023 ambulatory Rheu Chair 7 Digna Work Phone: Infusion Comment on above: Systemic lupus eryth ematosus, unspecified SLE type, unspecified organ involvement status (HCC) (Primary Dx) Start: 09-30-2023 Telephone encounter Sandy garcia MD Work Phone: General Surgery Comment on above: Orders Start: 09-29-2023 Orders Only Nadege A Tash roberto DO Work Phone: Rheumatology Comment on above: Infusion for 10/01/23 Start: 09-22-2023 Orders Only Jo Kuns 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: [facility] Start: 09-21-2023 Refill Jo Kuns 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: [facility] Start: 09-21-2023 End: 09-22-2023 ambulatory Yuriy Conway Facility:[facility] Start: 09-21-2023 End: 09-21-2023 Admission to same day surgery center DO Wojciech Klinemike Work Phone: [facility] Work Phone: Start: 09-21-2023 End: 09-21-2023 ambulatory DO Wojciech Klinececeliang Work Phone: [facility] Work Phone: Start: 09-17-2023 End: 09-17-2023 ambulatory YURIY Serrano [facility] Start: 09-17-2023 End: 09-17-2023 Office outpatient visit 40 minutes Yuriy Conway MD Work Phone: [facility] Comment on above: Atypical atrial flut ter (CMS/HCC) (Primary Dx); Paroxysmal atrial fibrillation (CMS/HCC); Essential hypertension; Obstructive sleep apnea; Never smoked any substance; Other forms of systemic lupus erythematosus, unspecified organ involvement status (CMS/HCC); Morbid obesity (CMS/HCC); High risk medication use; Dyslipidemia Start: 09-14-2023 Refill Wojciech barnes DO [facility] Start: 09-01-2023 End: 09-01-2023 ambulatory [facility] Start: 09-01-2023 End: 09-01-2023 Office outpatient visit 15 minutes [facility] 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: [facility] Comment on above: Viral upper respirat ory tract infection (Primary Dx) Start: 08-27-2023 End: 08-27-2023 ambulatory [facility]UG[facility] BILL Not Available Start: 08-20-2023 Orders Only Wojciech barnes DO Work Phone: [facility] Start: 08-05-2023 End: 08-05-2023 ambulatory AUG[facility] BILL Not Available Start: 08-03-2023 ambulatory WOJCIECH TREVIÑO Facility:[facility] Start: 07-20-2023 ambulatory Dalila Cervantes DPM Work Phone: Orthopaedics Start: 07-20-2023 Telephone encounter Ezequiel Cervantes DPM Work Phone: Orthopaedics Comment on above: Surgical Followup Start: 07-07-2023 Telephone encounter Ezequiel Cervantes DPM Work Phone: Orthopaedics Comment on above: Surgical Followup Start: 07-02-2023 End: 07-02-2023 Orders Only Beverly ANDERSM Work Phone: Podiatry Comment on above: Pain in left foot (P rimary Dx) Ulcer of toe of righ t foot, limited to breakdown of skin (HCC) (Primary Dx); Pre-ulcerative calluses; Osteoarthritis of midtarsal joint of left foot; Osteoarthritis of midtarsal joint of right foot Start: 07-01-2023 End: 07-01-2023 ambulatory [facility] Facility:[facility] Start: 07-01-2023 End: 07-01-2023 ambulatory Rena Sawyer Work Phone: Infusion Comment on above: Systemic lupus eryth ematosus, unspecified SLE type, unspecified organ involvement status (HCC) (Primary Dx); High risk medication use Start: 06-24-2023 Orders Only Nadege roberto DO Work Phone: Rheumatology Start: 06-16-2023 Refill Dione Romero Work Phone: Gastroenterology Comment on above: Refill Request Start: 06-10-2023 Telephone encounter Horace cortez PA-C Work Phone: [facility] [place] Comment on above: Medication Question Start: 05-21-2023 End: 05-21-2023 ambulatory [facility] Facility:[facility] Start: 04-23-2023 ambulatory Nadege roberto DO Work Phone: Rheumatology Comment on above: Missed appt and test Start: 04-22-2023 End: 04-22-2023 ambulatory [facility] Facility:[facility] Start: 04-22-2023 End: 04-22-2023 [facility] Facility:[facility] Start: 04-17-2023 Orders Only Jania Sandra Luís GONZALES P Work Phone: Hematology/Oncology Comment on above: Mixed hyperlipidemia (Primary Dx); Hypomagnesemia Start: 04-17-2023 Refill Dione Romero Work Phone: Gastroenterology Comment on above: Refill Request Start: 04-15-2023 End: 04-15-2023 ambulatory [facility] Facility:[facility] Start: 04-15-2023 End: 04-15-2023 Patient encounter procedure Dione Reinoso MD Work Phone: Gastroenterology Comment on above: Other ulcerative col itis without complication (HCC) (Primary Dx); Gastroesophageal reflux disease without esophagitis Start: 04-10-2023 End: 04-10-2023 ambulatory [facility] Facility:[facility] Start: 04-10-2023 End: 04-10-2023 ambulatory Nadege Hawkins DO Work Phone: Rheumatology Comment on above: Systemic lupus eryth ematosus, unspecified SLE type, unspecified organ involvement status (HCC) (Primary Dx); Thin blood (HCC) Start: 04-10-2023 End: 04-10-2023 Telemedicine consultation with patient Nadege Hawkins DO Work Phone: [facility] Start: 04-08-2023 Telephone encounter Dione wheeler MD Work Phone: Gastroenterology Comment on above: Results (Colon) Start: 04-02-2023 End: 04-02-2023 ambulatory [facility] Facility:[facility] Start: 04-02-2023 End: 04-02-2023 Subsequent hospital visit by physician Dione Reinoso MD Work Phone: Ambulatory Surgery Comment on above: IBD (inflammatory tayla wel disease) [K52.9] Start: 03-19-2023 End: 03-19-2023 ambulatory Rheu Chair 6 Digna Work Phone: Infusion Comment on above: Systemic lupus eryth ematosus, unspecified SLE type, unspecified organ involvement status (HCC) (Primary Dx) Start: 03-17-2023 ambulatory [facility] Comment on above: Infusion for 03/19 Start: 03-17-2023 E-mail encounter fro m caregiver [facility] Start: 03-15-2023 Refill Dione Romero Work Phone: Gastroenterology Comment on above: Refill Request Start: 03-12-2023 End: 03-12-2023 Patient encounter procedure Beverly Franco DPM Work Phone: Podiatry Comment on above: Ulcer of toe of righ t foot, limited to breakdown of skin (HCC) (Primary Dx); Pre-ulcerative calluses Start: 03-12-2023 End: 03-12-2023 [facility] Facility:[facility] Start: 2023 Telephone encounter Dione wheeler MD Work Phone: Gastroenterology Comment on above: Appointment Start: 02-16-2023 Refill Evelin Alicea MD Work Phone: Rheumatology Comment on above: Refill Request Start: 02-13-2023 Telephone encounter Dione wheeler MD Work Phone: Gastroenterology Comment on above: Results (labs) Start: 02-12-2023 End: 02-12-2023 [facility] Start: 02-12-2023 End: 02-12-2023 Patient encounter procedure Beverly Franco DPZach Work Phone: Podiatry Comment on above: Ulcer [...] Work Phone: Rheumatology Start: 02-04-2023 End: 02-05-2023 [facility] Start: 02-04-2023 End: 02-04-2023 Patient encounter procedure Nadege Hawkins DO Work Phone: Rheumatology Comment on above: Systemic lupus eryth ematosus, unspecified SLE type, unspecified organ involvement status (HCC) (Primary Dx); Need for vaccination against Streptococcus pneumoniae Start: 01-22-2023 End: 01-22-2023 [facility] Start: 01-22-2023 End: 01-22-2023 Patient encounter procedure Beverly ANDERSM Work Phone: Podiatry Comment on above: Ulcer of toe of righ t foot, limited to breakdown of skin (HCC) (Primary Dx); Pre-ulcerative calluses Start: 01-12-2023 Refill Dione Romero Work Phone: Gastroenterology Comment on above: Refill Request (vivek stipol) Start: 01-08-2023 End: 01-08-2023 ambulatory [facility] Facility:[facility] Start: 12-25-2022 End: 12-25-2022 ambulatory [facility] Facility:[facility] Start: 12-15-2022 End: 12-15-2022 ambulatory Georginau 2 Digna Work Phone: Infusion Comment on [...] m caregiver Evelin Alicea MD Work Phone: [facility] Start: 11-24-2022 Refill Dione Romero Work Phone: Gastroenterology Comment on above: Refill Request (iron ) Start: 10-28-2022 Refill Dione Romero Work Phone: Gastroenterology Comment on above: Refill Request Start: 10-24-2022 ambulatory Dalila Cervantes DPM Work Phone: Orthopaedics Start: 10-24-2022 Telephone encounter Ezequiel Cervantes DPM Work Phone: Orthopaedics Comment on above: Surgical Followup Start: 10-23-2022 ambulatory Dione Romero Work Phone: Gastroenterology Comment on above: Diarrhea and stomach acid Start: 10-21-2022 ambulatory Dione Romero Work Phone: Gastroenterology Comment on above: Colestipole Start: 10-21-2022 Telephone encounter Ezequiel Cervantes DPM Work Phone: Orthopaedics Comment on above: Surgical Followup Start: 10-16-2022 End: 10-16-2022 Office outpatient visit 15 minutes Julia Ann PA-C Work Phone: [facility] Comment on above: Osteopenia, unspecif ied location (Primary Dx); S/P parathyroidectomy (HCC); 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 Start: 10-15-2022 ambulatory Dione Serrano Nick Work Phone: Gastroenterology Comment on above: Colestipol Start: 09-30-2022 ambulatory Dione Serrano Nick Work Phone: Gastroenterology Comment on above: Cdif Start: 09-28-2022 End: 09-29-[address] WOJCIECH TREVIÑO Facility:H1 Start: 09-24-2022 Rx Renewal Wojciech barnes Work Phone: [facility] 250 DO Work Phone: Start: 09-21-2022 Refill Dione Blantone Zach Nick Work Phone: Gastroenterology Comment on above: Refill Request (Lial da) Start: 09-21-2022 Refill Keyanna Carter APRN.BLOWER INSULATOR Work Phone: Cardiology Comment on above: Refill Request Start: 09-18-2022 Chart Update Wojciech barnes Work Phone: [facility] 250 DO Work Phone: Start: 09-17-[address] Yuriy Mandelahi0m Fac ility:[id number] Start: 09-17-2022 Patient encounter procedure [facility] [place] Work Phone: Start: 09-15-2022 Telephone [...] antibiotics. ) Start: 09-10-2022 Rx Renewal [facility] Work Phone: Start: 09-10-2022 Refill Dione Romero Work Phone: Gastroenterology Comment on above: Refill Request Start: 09-08-2022 Telephone encounter Bryan Romero Work Phone: Endocrine Surgery Comment on above: Patient Update Start: 08-28-2022 Encounter for preprocedural laboratory examination DR DOCTOR SAGE [facility] Start: 08-26-2022 Telephone encounter Bryan Romero Work Phone: Endocrine Surgery Comment on above: Results (Covid) Start: 08-25-2022 End: 08-26-2022 Orders Only Bryan Painting MD Work Phone: Endocrine Surgery Comment on above: Hyperparathyroidism (HCC) (Primary Dx) Start: 08-25-2022 End: 08-26-2022 Encounter for preprocedural laboratory examination DR DOCTOR SAGE Facility:[facility]1 Start: 08-22-2022 Telephone encounter Bryan Romero Work Phone: Endocrine Surgery Comment on above: Patient Update Preparations For Maura torres Start: 08-22-[address] 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 Yuriy Sotom [facility] Start: 08-15-[address] Yuriy Baum Fac ility:[id number] Start: 08-01-2022 ambulatory Wojciech Treviño Facility: Start: 08-01-2022 Office consultation new/estab patient 80 min Wojciech Treviño Work Phone: [facility] 250 DO Work Phone: Start: 08-01-2022 Office outpatient ne w 60 minutes Wojciech Treviño Work Phone: [facility] Work Phone: Start: 08-01-2022 Patient encounter procedure Wojciech Treviño Work Phone: [facility] 250 DO Work Phone: Start: 07-31-2022 End: 07-31-2022 Admission to [facility] 2 Work Phone: [facility] Start: 07-31-2022 End: 07-31-2022 ambulatory [facility] 2 Work Phone: Pre Anesthesia Comment on above: [...] Start: 07-31-2022 End: 07-31-2022 Preprocedural examination done [facility] Adia 2 Work Phone: Pre Anesthesia Start: 07-23-2022 [...] work results Start: 06-12-2022 End: 06-12-2022 ambulatory Rheu Chair 6 Main Work Phone: Rheumatology Comment on above: Systemic lupus eryth ematosus, unspecified SLE type, unspecified organ involvement status (HCC) (Primary Dx); Hyperparathyroid (HCC) Start: 06-11-2022 End: 06-11-2022 Patient encounter procedure Lemuel Bejarano MD Work Phone: Endocrinology Comment on [...] Refill Start: 05-12-2022 End: 05-12-2022 ambulatory Julia RUIZCathi Work Phone: [facility] [place] Comment on above: Osteopenia, unspecif ied location (Primary Dx); Balance problem; Hypercalcemia; Hyperparathyroid (HCC) Start: 05-12-2022 End: 05-12-2022 Telemedicine consultation with patient Julia Peña PA-C Work Phone: [facility] Start: 05-06-2022 Get Medical Advice Dione godinez MD Work Phone: Gastroenterology Comment on above: Refill Refill Request Start: 04-18-2022 End: 04-18-2022 Patient encounter procedure Julia Peña ISELA Work Phone: [facility] Comment on above: Osteopenia, unspecif ied [...] above: Calcium level Start: 03-17-2022 E-mail encounter fro m caregiver Evelin Alicea MD Work Phone: [facility] Start: 03-13-2022 End: 03-13-2022 Patient encounter procedure Bone Density Prodigy [facility] Start: 03-13-2022 End: 03-13-2022 Nursing evaluation of patient and report Nurse Rena Main Work Phone: Rheumatology Start: 03-13-2022 End: 03-13-2022 ambulatory Georginau Chair 5 Main Work Phone: Rheumatology Comment [...] postmenopausal status Start: 03-12-2022 ambulatory [facility] Provider Angela isaacs Comment on above: Covid test Start: 03-12-2022 E-mail encounter fro m caregiver [facility] Provider [facility] Start: 03-06-2022 Telephone encounter Evelin Alicea MD Work Phone: Rheumatology Comment on above: Orders (Evusheld) Start: 02-24-2022 Telephone encounter Dione wheeler MD Work Phone: [...] 02-13-2022 Emergency department patient visit DO Wojciech Treviño Work Phone: [facility] Start: 02-07-2022 End: 02-09-2022 Evaluation and management of inpatient DO Wojciech Treviño Work Phone: [facility] Start: 01-31-2022 ambulatory Dione Romero Work Phone: Gastroenterology Comment on above: Questions Start: 01-30-2022 ambulatory Dione Romero Work Phone: [facility] Start: 01-30-2022 Patient encounter procedure Dione Reinoso [...] End: 09-03-2020 Subsequent hospital visit by physician [facility] Digna Radiology Comment on above: Calculus of gallblad avery without cholecystitis without obstruction [K80.20] Start: 10-12-2018 Patient encounter procedure YURIY CAREYIM Facility:[id number] Start: 10-06-2018 Patient encounter procedure YURIY MANDELAHIM Facility:[id number] Preoperative state Wojciech Milan yuriy Work Phone: [facility] 250 DO Work Phone: Procedures Date Procedure Procedure Detail Performing Clinician Start: 11-09-2023 ECG 12-LEAD YURIY CONWAY Start: 10-29-2023 ECG 12-LEAD YURIY CONWAY Start: 10-29-2023 FOLLOW UP IN CARDIOLOGY YURIY CONWAY Start: 10-29-2023 Ecg routine ecg w/least 12 lds w/i&r Yuriy Conway MD Work Phone: Start: 10-23-2023 Mri abdomen w/o & w/contrast material Rima Mcallister APRN.BLOWER INSULATOR Work Phone: Start: 09-17-2023 ECG 12-LEAD YURIY CONWAY Start: 09-17-2023 Ecg routine ecg w/least 12 lds w/i&r Yuriy Conway MD Work Phone: Start: 09-01-2023 Adult depression screening assessment Jania Saeed 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: Start: 04-22-2023 Lipid 1996 panel - Serum or Plasma Horace perkins PA-C Work Phone: Start: 04-15-2023 Adult depression screening assessment Wojciech Treviño DO Work Phone: Start: 04-02-2023 Colonoscopy flx dx w/collj spec when pfrmd Dione Reinoso MD Work Phone: Start: 04-02-2023 Colonoscopy Dione Reinoso MD Work Phone: Start: 08-16-2023 Mammography Dione Reinoso MD Work Phone: Start: 09-17-2022 Echocardiography Wojciech Sernang Work Phone: Start: 07-07-2022 Parathyroid imaging w/tomographic spect & ct rByan Painting MD Work Phone: Start: 06-12-2022 Comprehensive [...] Phone: Start: 02-08-2022 MRI of head DO Wojciech Sernang Work Phone: Start: 02-07-2022 Computed tomography angiography of abdominal and/or pelvic blood vessel DO Wojciech Klinelong Work Phone: Start: 02-07-2022 CT angiography of head DO Wojciech Klinelong Work Phone: Start: 02-07-2022 CT angiography of neck vessels DO Wojciech Klinelong Work Phone: Start: 02-07-2022 CT angiography of thorax DO Wojciech Klinelo ng Work Phone: Start: 02-07-2022 CT of head without contrast DO Wojciech kateong Work Phone: Start: 02-07-2022 SARS Antigen (LFIA) DO Wojciech Klinelong Work Phone: Start: 02-07-2022 Urine culture DO Wojciech Klinelong Work Phone: Start: 02-07-2022 Plain chest X-ray DO Wojciech Furlong Work Phone: Start: 12-09-2021 Blood count complete [...] on above: Performed By: #### [id number] #### [place] [address] Start: 09-03-2020 Us abdominal real time w/image limited Sandy Arredondo MD Work Phone: Start: 07-23-2020 Colonoscopy Yuriy Conway MD Work Phone: Start: 09-08-2019 Thyrotropin [Units/volume] in Serum or Plasma Yuriy Conway MD Work Phone: Appendectomy Wojciech Klinezoë g Work Phone: Excision of cyst Wojciech Strong humbleong Work Phone: Operative procedure on foot Wojciech Terviño Work Phone: Tonsillectomy Wojciech Klinececelia ng Work Phone: Total replacement of hip Jenaro Sernang Work Phone: Plan of Treatment Date Care Activity Detail Author Start: 04-02-2033 Screening for malignant neoplasm of colon Colonoscopy [facility] Start: 07-23-2030 Screening for malignant neoplasm of colon [facility] Start: 04-22-2028 Lipid 1996 panel - Serum or Plasma Lipid Screening [facility] Start: 04-22-2028 Lipid panel Lipid Screening [facility] Start: 04-22-2028 LIPID SCREEN LIPID SCREEN [facility] Start: 04-02-2028 Screening for malignant neoplasm of colon Sigmoidoscopy [facility] Start: 09-10-2027 LIPID SCREEN LIPID SCREEN [facility] Start: 10-13-2026 Diabetes Screening Diabetes Screening [facility] Start: 04-22-2026 DIABETES SCREEN DIABETES SCREEN [facility] Start: 04-22-2026 Diabetes Screening Diabetes Screening [facility] Start: 02-04-2026 DIABETES SCREEN DIABETES SCREEN [facility] Start: 06-30-2025 DIABETES SCREEN DIABETES SCREEN [facility] Start: 06-25-2025 LIPID SCREEN LIPID SCREEN [facility] Start: 06-12-2025 DIABETES SCREEN DIABETES SCREEN [facility] Start: 03-13-2025 DIABETES SCREEN DIABETES SCREEN [facility] Start: 12-09-2024 DIABETES SCREEN DIABETES SCREEN [facility] Start: 10-13-2024 BP Controlled (<130/80) BP Controlled (<130/80) [facility] Start: 09-01-2024 Adult BMI Screening Adult BMI Screening [facility] Start: 09-01-2024 Depression Screening Depression Screening [facility] Start: 09-01-2024 Tobacco Screening Tobacco Screening [facility] Start: 07-27-2024 Tobacco Screening Tobacco Screening [facility] Start: 05-16-2024 DIABETES SCREEN DIABETES SCREEN [facility] Start: 04-15-2024 Adult BMI Screening Adult BMI Screening [facility] Start: 04-15-2024 Depression Screening Depression Screening [facility] Start: 04-15-2024 Fall Risk Screening Fall Risk Screening [facility] Start: 04-02-2024 Colonoscopy COLONOSCOPY [facility] Start: 04-02-2024 COLORECTAL CANCER SCREENING COLORECTAL CANCER SCREENING [facility] Start: 04-02-2024 Screening for malignant neoplasm of colon [facility] Start: 08-16-2024 Mammography [facility] Start: 04-01-2024 Screening for malignant neoplasm of breast [facility] Start: 02-29-2024 End: 02-29-2024 Patient encounter procedure 02/29/2024 1:00 PM EDT Office Visit [facility] [address] [place] [id number] Yuriy Conway MD [address] [place] [address] [facility] Start: 02-16-2024 End: 02-16-2024 Patient encounter procedure 02/16/2024 9:00 AM EDT Office Visit [facility] [address] [place] [address] [facility] Start: 02-05-2024 BP CONTROLLED (<130/80) BP CONTROLLED (<130/80) [facility] Start: 01-28-2024 Medicare Annual Wellness Visit Medicare Annual Wellness Visit [facility] Start: 11-16-2023 End: 11-16-2023 Patient encounter procedure 11/16/2023 3:30 PM EDT Office Visit [facility] [address] [place] [address] [place] [address] [place], [place] [id number] [facility] Start: 11-05-2023 End: 10-28-2024 ECG 12 Lead ECG 12 Lead ECG Routine Paroxysmal atrial fibrillation (CMS/HCC) Expected: 11/05/2023 (Approximate), Expires: 10/28/[address] [facility] Service Area Work Phone: Comment on above: Expected: 11/05/2023 (Approximate), Expi res: 10/28/2024 Start: 09-17-2023 End: 09-17-2025 Cardioversion External Cardioversion External Cardiac Services Routine Paroxysmal atrial fibrillation (CMS/HCC) Expected: 09/17/2023 (Approximate), Expires: 09/17/[address] [facility] Service Area Work Phone: Comment on above: Expected: 09/17/2023 (Approximate), Expi res: 09/17/2025 Start: 09-17-2023 Echocardiography Echocardiogram [facility] Start: 08-17-2023 Advance Directive Discussion Advance Directive Discussion [facility] Start: 08-17-2023 Depression Assessment Depression Assessment [facility] Start: 07-21-2023 FUV, Provider: Yuriy Conway, Status: Pen, Time: 10:20 AM FUV, Provider: Yuriy Conway, Status: Pen, Time: 10:20 AM [facility] 250 DO Work Phone: Start: 07-07-2023 BP CONTROLLED (<130/80) BP CONTROLLED (<130/80) [facility] Start: 06-11-2023 BP CONTROLLED (<130/80) BP CONTROLLED (<130/80) [facility] Start: 04-18-2023 BP CONTROLLED (<130/80) BP CONTROLLED (<130/80) [facility] Start: 04-17-2023 Covid-19 Vaccine ( season) Covid-19 Vaccine ( season) [facility] Start: 04-17-2023 Influenza vaccination [facility] Start: 04-17-2023 End: 06-17-2023 Lipid 1996 panel - Serum or Plasma LIPID PANEL BASIC Lab Routine Mixed hyperlipidemia Hypomagnesemia Expected: 04/17/2023, Expires: 06/17/2023 [facility] Work Phone: Comment on above: Expected: 04/17/2023, Expires: 3 Start: 04-17-2023 End: 06-17-2023 Magnesium [Mass/volume] in Serum or Plasma MAGNESIUM BLD Lab Routine Mixed hyperlipidemia Hypomagnesemia Expected: 04/17/2023, Expires: 06/17/2023 [facility] Work Phone: Comment on above: Expected: 04/17/2023, Expires: 3 Start: 04-10-2023 End: 06-10-2023 CBC W Auto Differential panel - Blood CBC + DIFF Lab Routine Systemic lupus erythematosus, unspecified SLE type, unspecified organ involvement status (HCC) Expected: 04/10/2023, Expires: 06/10/2023 [facility] Work Phone: Comment on above: Expected: 04/10/2023, Expires: 3 Start: 04-10-2023 End: 06-10-2023 Complement C3 [Mass/volume] in Serum or Plasma C3 COMPLEMENT BLD Lab Routine Systemic lupus erythematosus, unspecified SLE type, unspecified organ involvement status (HCC) Expected: 04/10/2023, Expires: 06/10/2023 [facility] Work Phone: Comment on above: Expected: 04/10/2023, Expires: 3 Start: 04-10-2023 End: 06-10-2023 Complement C4 [Mass/volume] in Serum or Plasma C4 COMPLEMENT BLD Lab Routine Systemic lupus erythematosus, unspecified SLE type, unspecified organ involvement status (HCC) Expected: 04/10/2023, Expires: 06/10/2023 [facility] Work Phone: Comment on above: Expected: 04/10/2023, Expires: 3 Start: 04-10-2023 End: 06-10-2023 Comprehensive metabolic 2000 panel - Serum or Plasma COMP METABOLIC PANEL Lab Routine Systemic lupus erythematosus, unspecified SLE type, unspecified organ involvement status (HCC) Expected: 04/10/2023, Expires: 06/10/2023 [facility] Work Phone: Comment on above: Expected: 04/10/2023, Expires: 3 Start: 04-10-2023 End: 06-10-2023 DNA ANTIBODY DS BLD DNA ANTIBODY DS BLD Lab Routine Systemic lupus erythematosus, unspecified SLE type, unspecified organ involvement status (HCC) Expected: 04/10/2023, Expires: 06/10/2023 [facility] Work Phone: Comment on above: Expected: 04/10/2023, Expires: 3 Start: 04-10-2023 End: 06-10-2023 Protein/Creatinine [Mass Ratio] in Urine PROTEIN CREATININE RATIO Lab Routine Systemic lupus erythematosus, unspecified SLE type, unspecified organ involvement status (HCC) Expected: 04/10/2023, Expires: 06/10/2023 [facility] Work Phone: Comment on above: Expected: 04/10/2023, Expires: Start: 04-10-2023 End: 06-10-2023 Urinalysis complete panel - Urine URINALYSIS, WITH MICROSCOPIC Lab Routine Systemic lupus erythematosus, unspecified SLE type, unspecified organ involvement status (HCC) Expected: 04/10/2023, Expires: 06/10/2023 [facility] Work Phone: Comment on above: Expected: 04/10/2023, Expires: Start: 03-13-2023 BP CONTROLLED (<130/80) BP CONTROLLED (<130/80) [facility] Start: 02-21-2023 End: 03-23-2023 25-hydroxyvitamin D3 [Mass/volume] in Serum or Plasma VITAMIN D 25 HYDROXY Lab Routine Hyperparathyroidism (HCC) Expected: 02/21/2023, Expires: 03/23/2023 [facility] Work Phone: Comment on above: Expected: 02/21/2023, Expires: 3 Start: 02-21-2023 End: 03-23-2023 Calcium [Mass/volume] in Serum or Plasma CALCIUM TOTAL BLD Lab Routine Hyperparathyroidism (HCC) Expected: 02/21/2023, Expires: 03/23/2023 [facility] Work Phone: Comment on above: Expected: 02/21/2023, Expires: 3 Start: 02-21-2023 End: 03-23-2023 Parathyrin.intact [Mass/volume] in Serum or Plasma PTH INTACT BLD Lab Routine Hyperparathyroidism (HCC) Expected: 02/21/2023, Expires: 03/23/2023 [facility] Work Phone: Comment on above: Expected: 02/21/2023, Expires: 3 Start: 02-04-2023 End: 04-06-2023 PARVEZ BY IFA WITH REFLEX [facility] Work Phone: Comment on above: Expected: 02/04/2023, Expires: 3 Start: 02-04-2023 End: 04-06-2023 Cyclic citrullinated peptide IgG Ab [Units/volume] in Serum or Plasma [facility] Work Phone: Comment on above: Expected: 02/04/2023, Expires: 3 Start: 02-04-2023 End: 04-06-2023 DNA ANTIBODY DS BLD [facility] Work Phone: Comment on above: Expected: 02/04/2023, Expires: 3 Start: 01-01-2023 BP CONTROLLED (<130/80) BP CONTROLLED (<130/80) [facility]ic Start: 12-19-2022 End: 2023 Calprotectin [Mass/mass] in Stool CALPROTECTIN,FECAL Lab Routine Diarrhea, unspecified type Expected: 12/19/2022 (Approximate), Expires: 2023 [facility] Work Phone: Comment on above: Expected: 12/19/2022 (Approximate), Expi res: 2023 Start: 12-19-2022 End: 2023 Clostridioides difficile toxin genes [Presence] in Stool by RAVIN with probe detection C. DIFFICILE PCR Lab Routine Diarrhea, unspecified type Expected: 12/19/2022 (Approximate), Expires: 2023 [facility] Work Phone: Comment on above: Expected: 12/19/2022 (Approximate), Expi res: 2023 Start: 12-19-2022 End: 2023 ENTERIC BACTERIAL PANEL BY PCR ENTERIC BACTERIAL PANEL BY PCR Lab Routine Diarrhea, unspecified type Expected: 12/19/2022 (Approximate), Expires: 2023 [facility] Work Phone: Comment on above: Expected: 12/19/2022 (Approximate), Expi res: 2023 Start: 12-19-2022 End: 2023 Giardia lamblia+Cryptosporidium sp Ag [Presence] in Stool by Immunoassay CRYPTOSPORIDIUM AND GIARDIA ANTIGENS BY EIA Microbiology Routine Diarrhea, unspecified type Expected: 12/19/2022 (Approximate), Expires: 2023 [facility] Work Phone: Comment on above: Expected: 12/19/2022 (Approximate), Expi res: 2023 Start: 12-19-2022 End: 2023 PANC ELASTASE, FECAL PANC ELASTASE, FECAL Lab Routine Diarrhea, unspecified type Expected: 12/19/2022 (Approximate), Expires: 2023 [facility] Work Phone: Comment on above: Expected: 12/19/2022 (Approximate), Expi res: 2023 Start: 11-13-2022 Adult depression screening assessment DEPRESSION SCREENING [facility] Start: 09-22-2022 End: 11-22-2022 Hepatic function 2000 panel - Serum or Plasma HEPATIC FUNCTION PNL Lab Routine Mixed hyperlipidemia Expected: 09/22/2022, Expires: 11/22/2022 [facility] Work Phone: Comment on above: Expected: 09/22/2022, Expires: 3 Start: 09-22-2022 End: 11-22-2022 Lipid 1996 panel - Serum or Plasma LIPID PANEL BASIC Lab Routine Mixed hyperlipidemia Expected: 09/22/2022, Expires: 11/22/2022 [facility] Work Phone: Comment on above: Expected: 09/22/2022, Expires: 3 Start: 09-17-2022 ECHO, Provider: SHERRY MATA ULTRASOUND 01,[id number], Status: Pen, Time: 8:45 AM ECHO, Provider: SHERRY MATA ULTRASOUND 01,[id number], Status: Pen, Time: 8:45 AM [facility] [address] DO Work Phone: Start: 09-12-2022 Colonoscopy COLONOSCOPY [facility] Start: 09-12-2022 COLORECTAL CANCER SCREENING COLORECTAL CANCER SCREENING [facility] Start: 09-08-2022 End: 11-08-2022 Calcium [Mass/volume] in Serum or Plasma CALCIUM TOTAL BLD Lab Routine Hyperparathyroidism (HCC) Expected: 09/08/2022, Expires: 11/08/2022 [facility] Work Phone: Comment on above: Expected: 09/08/2022, Expires: 3 Start: 09-08-2022 End: 11-08-2022 Parathyrin.intact [Mass/volume] in Serum or Plasma PTH INTACT BLD Lab Routine Hyperparathyroidism (HCC) Expected: 09/08/2022, Expires: 11/08/2022 [facility] Work Phone: Comment on above: Expected: 09/08/2022, Expires: 3 Start: 08-22-2022 REST ONLY, Provider: SHERRY HHVI NUCLEAR 01,[id number], Status: Pen, Time: 10:00 AM REST ONLY, Provider: SHERRY HHVI NUCLEAR 01,[id number], Status: Pen, [facility]: 10:00 [facility] Work [facility]: Start: 08-17-2022 ADVANCE DIRECTIVE DISCUSSION ADVANCE DIRECTIVE DISCUSSION [facility] Start: 08-17-2022 DEPRESSION ASSESSMENT DEPRESSION ASSESSMENT [facility] [facility] Start: 08-15-2022 STRESSNUC2, Provider: SHERRY HHVI NUCLEAR 01,[id number], Status: Pen, Time: 10:00 AM STRESSNUC2, Provider: SHERRY HHVI NUCLEAR 01,[id number], Status: Pen, Time: 10:00 AM [facility] DO Work Phone: Start: 06-18-2022 End: 08-18-2022 C reactive protein [Mass/volume] in Serum or Plasma C-REACTIVE PROTEIN (CRP) Lab Routine Systemic lupus erythematosus, unspecified SLE type, unspecified organ involvement status (HCC) Expected: 06/18/2022, Expires: 08/18/2022 [facility] Work Phone: Comment on above: Expected: 06/18/2022, Expires: 3 Start: 06-18-2022 End: 08-18-2022 CBC W Auto Differential panel - Blood CBC + DIFF Lab Routine Systemic lupus erythematosus, unspecified SLE type, unspecified organ involvement status (HCC) Expected: 06/18/2022, Expires: 08/18/2022 [facility] Work Phone: Comment on above: Expected: 06/18/2022, Expires: 3 Start: 06-18-2022 End: 08-18-2022 Complement C3 [Mass/volume] in Serum or Plasma C3 COMPLEMENT BLD Lab Routine Systemic lupus erythematosus, unspecified SLE type, unspecified organ involvement status (HCC) Expected: 06/18/2022, Expires: 08/18/2022 [facility] Work Phone: Comment on above: Expected: 06/18/2022, Expires: 3 Start: 06-18-2022 End: 08-18-2022 Complement C4 [Mass/volume] in Serum or Plasma C4 COMPLEMENT BLD Lab Routine Systemic lupus erythematosus, unspecified SLE type, unspecified organ involvement status (HCC) Expected: 06/18/2022, Expires: 08/18/2022 [facility] Work Phone: Comment on above: Expected: 06/18/2022, Expires: 3 Start: 06-18-2022 End: 08-18-2022 Comprehensive metabolic 2000 panel - Serum or Plasma COMP METABOLIC PANEL Lab Routine Systemic lupus erythematosus, unspecified SLE type, unspecified organ involvement status (HCC) Expected: 06/18/2022, Expires: 08/18/2022 [facility] Work Phone: Comment on above: Expected: 06/18/2022, Expires: 3 Start: 06-18-2022 End: 08-18-2022 Erythrocyte sedimentation rate SED RATE WESTERGREN Lab Routine Systemic lupus erythematosus, unspecified SLE type, unspecified organ involvement status (HCC) Expected: 06/18/2022, Expires: 08/18/2022 [facility] Work Phone: Comment on above: Expected: 06/18/2022, Expires: 3 Start: 06-18-2022 End: 08-18-2022 Protein/Creatinine [Mass Ratio] in Urine PROTEIN CREATININE RATIO Lab Routine Systemic lupus erythematosus, unspecified SLE type, unspecified organ involvement status (HCC) Expected: 06/18/2022, Expires: 08/18/2022 [facility] Work Phone: Comment on above: Expected: 06/18/2022, Expires: 3 Start: 06-18-2022 End: 08-18-2022 Urinalysis complete panel - Urine URINALYSIS, WITH MICROSCOPIC Lab Routine Systemic lupus erythematosus, unspecified SLE type, unspecified organ involvement status (HCC) Expected: 06/18/2022, Expires: 08/18/2022 [facility] Work Phone: Comment on above: Expected: 06/18/2022, Expires: 3 Start: 06-11-2022 End: 08-11-2022 Comprehensive metabolic 2000 panel - Serum or Plasma COMP METABOLIC PANEL Lab Routine Hyperparathyroid (HCC) Expected: 06/11/2022, Expires: 08/11/2022 [facility] Work Phone: Comment on above: Expected: 06/11/2022, Expires: 2 Start: 06-11-2022 End: 08-11-2022 Parathyrin.intact [Mass/volume] in Serum or Plasma PTH INTACT BLD Lab Routine Hyperparathyroid (HCC) Expected: 06/11/2022, Expires: 08/11/2022 [facility] Work Phone: Comment on above: Expected: 06/11/2022, Expires: 2 Start: 04-18-2022 End: 06-18-2022 CROSS-LINK N-TELOPEP [facility] Work Phone: Comment on above: Expected: 04/18/2022 (Approximate), Expi res: 06/18/2022 Start: 04-17-2022 Influenza vaccination INFLUENZA (#1) [facility] Start: 03-20-2022 End: 05-20-2022 Calcium [Mass/volume] in Serum or Plasma CALCIUM TOTAL BLD Lab Routine 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) High risk medication use Expected: 03/20/2022, Expires: 05/20/2022 [facility] Work Phone: Comment on above: Expected: 03/20/2022, Expires: Start: 02-07-2022 MRI of head MR head/brain wo con [facility] Start: 02-07-2022 Bacteria identified in Urine by Culture Urine Culture [facility] Start: 12-09-2021 End: 02-08-2022 DNA double strand Ab [Units/volume] in Serum by Immunoassay [facility] Work Phone: Comment on above: Expected: 12/09/2021 (Approximate), Expi res: 02/08/2022 Start: 12-09-2021 End: 02-08-2022 Protein/Creatinine [Mass Ratio] in Urine [facility] Work Phone: Comment on above: Expected: 12/09/2021 (Approximate), Expi res: 02/08/2022 Start: 12-09-2021 End: 02-08-2022 Urinalysis complete panel - Urine [facility] Work Phone: Comment on above: Expected: 12/09/2021 (Approximate), Expi res: 02/08/2022 Start: 09-17-2021 COVID-19 VACCINE (3 - Booster for Iris series) COVID-19 VACCINE (3 - Booster for Iris series) [facility] Start: 08-17-2021 ADVANCE DIRECTIVE DISCUSSION ADVANCE DIRECTIVE DISCUSSION [facility] Start: 08-17-2021 DEPRESSION ASSESSMENT DEPRESSION ASSESSMENT [facility] Start: 05-27-2021 PNEUMOCOCCAL: 65+ (3 - PPSV23 if available, else PCV20) PNEUMOCOCCAL: 65+ (3 - PPSV23 if available, else PCV20) [facility] Start: 05-27-2021 PNEUMOCOCCAL: 65+ (4 - PPSV23 if available, else PCV20) PNEUMOCOCCAL: 65+ (4 - PPSV23 if available, else PCV20) [facility] Start: 05-27-2021 PNEUMOCOCCAL: 65+ (4 - PPSV23 or PCV20) PNEUMOCOCCAL: 65+ (4 - PPSV23 or PCV20) [facility] Start: 05-27-2021 PNEUMOVAX AGE 65 AND OVER WITH 5YR LOOKBACK (#1) PNEUMOVAX AGE 65 AND OVER WITH 5YR LOOKBACK (#1) [facility] Start: 09-15-2020 Creatinine measurement Creatinine Level [facility] Start: 09-15-2020 Potassium measurement Potassium Level [facility] Start: 09-08-2020 Thyroid stimulating hormone measurement TSH Level [facility] Start: 2016 HEPATITIS B (1 of 3 - Risk 3-dose series) HEPATITIS B (1 of 3 - Risk 3-dose series) [facility] Start: 2016 Hepatitis B Vaccine (1 of 3 - Risk 3-dose series) Hepatitis B Vaccine (1 of 3 - Risk 3-dose series) [facility] Start: 2016 RSV Vaccine (1 - 1-dose 60+ series) RSV Vaccine (1 - 1-dose 60+ series) [facility] Start: 02-17-2001 COLOGUARD (FIT-DNA) COLOGUARD (FIT-DNA) [facility] Start: 02-17-[address] COLONOGRAPHY [facility] Start: 02-17-2001 FECAL OCCULT BLOOD FECAL OCCULT BLOOD [facility] Start: 02-17-2001 Screening for malignant neoplasm of colon [facility] Start: 02-17-2001 SIGMOIDOSCOPY SIGMOIDOSCOPY [facility] Start: 1996 Mammography MAMMOGRAM [facility] Start: 02-17-1978 DTaP/Tdap/Td Vaccines (1 - Tdap) DTaP/Tdap/Td Vaccines (1 - Tdap) [facility] Start: 02-17-1975 DTaP,Tdap and Td Vaccines (1 - Tdap) DTaP,Tdap and Td Vaccines (1 - Tdap) [facility] Start: 02-17-1975 HEPATITIS A (1 of 2 - Risk 2-dose series) HEPATITIS A (1 of 2 - Risk 2-dose series) [facility] Start: 02-17-1975 Hepatitis A Vaccine (1 of 2 - Risk 2-dose series) Hepatitis A Vaccine (1 of 2 - Risk 2-dose series) [facility] Start: 02-17-1975 HEPATITIS B (1 of 3 - Risk 3-dose series) HEPATITIS B (1 of 3 - Risk 3-dose series) [facility] Start: 02-17-1975 Urine microalbumin profile [facility] Start: 02-17-1974 Adult BMI Follow Up Plan Adult BMI Follow Up Plan [employer] [facility] Start: 02-17-1974 ANNUAL PCP TEAM CHRONIC DISEASE VISIT ANNUAL PCP TEAM CHRONIC DISEASE VISIT [facility] Start: 02-17-1974 BP CONTROLLED (<130/80) BP CONTROLLED (<130/80) [facility] Start: 02-17-1974 Diabetes mellitus screening Diabetes Screening [facility] Start: 02-17-1974 Hepatitis C screening Hepatitis C Screening [facility] Start: 02-17-1974 HIV SCREENING HIV SCREENING [facility] Start: 02-17-1974 MMR (1 of 2 - Risk 2-dose series) MMR (1 of 2 - Risk 2-dose series) [facility] Start: 02-17-1974 MMR Vaccine (1 of 2 - Risk 2-dose series) MMR Vaccine (1 of 2 - Risk 2-dose series) [facility] Start: 02-17-1966 Meningococcal B Vaccine: Consider Based On Risk (1 of 4 - Increased Risk) Meningococcal B Vaccine: Consider Based On Risk (1 of 4 - Increased Risk) [facility] Start: 02-17-1966 MENINGOCOCCAL B: Consider based on risk (1 of 4 - Increased Risk Bexsero 2-dose series) MENINGOCOCCAL B: Consider based on risk (1 of 4 - Increased Risk Bexsero 2-dose series) [facility] Start: 02-17-1966 MENINGOCOCCAL B: Consider based on risk (1 of 4 - Increased Risk) MENINGOCOCCAL B: Consider based on risk (1 of 4 - Increased Risk) [facility] Start: 02-17-1957 HEPATITIS A (1 of 2 - Risk 2-dose series) HEPATITIS A (1 of 2 - Risk 2-dose series) [facility] Start: 1956 Lipid panel Lipid Panel [facility] Start: 1956 Medicare Annual Wellness Visit Medicare Annual Wellness Visit (AWV) [facility] Start: 1956 Screening for malignant neoplasm of colon [facility] Start: 1956 Screening for osteoporosis Bone Density Scan [facility] Bacteria identified in Urine by Culture [facility] Work Phone: End: 03-13-2023 C reactive protein [Mass/volume] in Serum or Plasma C-REACTIVE PROTEIN (CRP) Lab Routine Membranous lupus nephritis syndrome (HCC) High risk medication use Systemic lupus erythematosus, unspecified SLE type, unspecified organ involvement status (HCC) Every 4 months for 6 Occurrences starting 03/13/2022 until 03/13/2023, 1 completed [facility] Work Phone: Comment on above: Every 4 months for 6 Occurrences startin g 03/13/2022 until 03/13/2023, 1 completed CALCIUM 24 HR URINE CALCIUM 24 H R URINE Lab Routine Osteopenia, unspecified location Vitamin D deficiency disease Serum calcium elevated 04/22/2022 8:30 AM EDT [facility] Work Phone: End: 04-26-2023 Cardiac mri for velocity flow mapping MRI CARDIAC VELOCITY FLOW MAP Radiology Routine Hypertrophic obstructive cardiomyopathy (HCC) 1 Occurrences starting 03/27/2022 until 04/26/2023 [facility] Work Phone: Comment on above: 1 Occurrences starting 03/27/2022 until 04/26/2023 End: 04-26-2023 Cardiac mri w/wo contrast & further seq MRI CARDIAC MORPH FUNC WO/W IVCON Radiology Routine Hypertrophic obstructive cardiomyopathy (HCC) 1 Occurrences starting 03/27/2022 until 04/26/2023 [facility] Work Phone: Comment on above: 1 Occurrences starting 03/27/2022 until 04/26/2023 End: 03-13-2023 CBC W Auto Differential panel - Blood CBC + DIFF Lab Routine Membranous lupus nephritis syndrome (HCC) High risk medication use Systemic lupus erythematosus, unspecified SLE type, unspecified organ involvement status (HCC) Every 4 months for 6 Occurrences starting 03/13/2022 until 03/13/2023, 1 completed [facility] Work Phone: Comment on above: Every 4 months for 6 Occurrences startin g 03/13/2022 until 03/13/2023, 1 completed Clostridioides diffi cile toxin genes [Presence] in Stool by RAVIN with probe detection C. DIFFICILE PCR Lab Routine Diarrhea, unspecified type Ordered: 02/21/2022 [facility] Work Phone: Comment on above: Ordered: 02/21/2022 End: 02-19-2024 COLONOSCOPY DIAGNOSTIC COLONOSCOPY DIAGNOSTIC Endoscopy Routine IBD (inflammatory bowel disease) 1 Occurrences starting 2023 until 02/19/2024 [facility] Work Phone: Comment on above: 1 Occurrences starting 2023 until 02/19/2024 End: 03-13-2023 Complement C3 [Mass/volume] in Serum or Plasma C3 COMPLEMENT BLD Lab Routine Membranous lupus nephritis syndrome (HCC) High risk medication use Systemic lupus erythematosus, unspecified SLE type, unspecified organ involvement status (HCC) Every 4 months for 6 Occurrences starting 03/13/2022 until 03/13/2023, 1 completed [facility] Work Phone: Comment on above: Every 4 [...] Occurrences starting 03/13/2022 until 03/13/2023, 1 completed [facility] Work Phone: Comment on above: Every 4 [...] Occurrences starting 03/13/2022 until 03/13/2023, 1 completed [facility] Work Phone: Comment on above: Every 4 months for 6 Occurrences startin g 03/13/2022 until 03/13/2023, 1 completed CREATININE 24 HR UR CREATININE 2 4 HR UR Lab Routine Osteopenia, unspecified location Vitamin D deficiency disease Serum calcium elevated 04/22/2022 8:30 AM EDT [facility] Work Phone: Dxa bone density vinicius dy 1/> sites axial skel DXA-AXIAL SKELETON Radiology Routine Asymptomatic postmenopausal status 03/13/2022 3:21 PM EDT [facility] Work Phone: End: 11-11-2024 DXA Skeletal system.axial Views for bone density and vertebral fracture DXA-AXIAL SKELETON WITH VFA Radiology Routine Osteopenia, unspecified location S/P parathyroidectomy [facility] (current) use of 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 Vitamin D deficiency disease 1 Occurrences starting 10/13/2023 until 11/11/2024 [facility] Work Phone: Comment on above: 1 Occurrences starting 10/13/2023 until 11/11/2024 ECG 12 Lead ECG 12 Lead ECG Routine Paroxysmal atrial fibrillation (CMS/HCC) 11/09/2023 8:[address] [facility] Service Area Work Phone: End: 03-27-2023 ECG COMPLETE ECG COMPLETE ECG Routine Hypertrophic obstructive cardiomyopathy (HCC) 1 Occurrences starting 03/27/2022 until 03/27/2023 [facility] Work Phone: Comment on above: 1 Occurrences starting 03/27/2022 until 03/27/2023 End: 03-27-2023 Echocardiography ECHO Cardiology Routine Hypertrophic obstructive cardiomyopathy (HCC) 1 Occurrences starting 03/27/2022 until 03/27/2023 [facility] Work Phone: Comment on above: 1 Occurrences starting 03/27/2022 until 03/27/2023 ENTERIC BACTERIAL PA ANA BY PCR ENTERIC BACTERIAL PANEL BY PCR Lab Routine Diarrhea, unspecified type Ordered: 02/21/2022 [facility] Work Phone: Comment on above: Ordered: 02/21/2022 End: 03-13-2023 Erythrocyte sedimentation rate SED RATE WESTERGREN Lab Routine Membranous lupus nephritis syndrome (HCC) High risk medication use Systemic lupus erythematosus, unspecified SLE type, unspecified organ involvement status (HCC) Every 4 months for 6 Occurrences starting 03/13/2022 until 03/13/2023, 1 completed [facility] Work Phone: Comment on above: Every 4 months for 6 Occurrences startin g 03/13/2022 until 03/13/2023, 1 completed Giardia lamblia+Cryptosporidium sp Ag [Presence] in Stool by Immunoassay CRYPTOSPORIDIUM AND GIARDIA ANTIGENS BY EIA Microbiology Routine Diarrhea, unspecified type Ordered: 02/21/2022 [facility] Work Phone: Comment on above: Ordered: 02/21/2022 End: 10-29-2024 MR Biliary ducts and Pancreatic duct WO and W contrast IV MRI PANC/JEANIE WO/W IVCON Radiology Routine Pancreatic cyst 1 Occurrences starting 09/30/2023 until 10/29/2024 [facility] Work Phone: Comment on above: 1 Occurrences starting 09/30/2023 until 10/29/2024 End: 10-29-2024 MR Unspecified body region 3D post processing MRI 3D POST PROCESSING Radiology Routine Pancreatic cyst 1 Occurrences starting 09/30/2023 until 10/29/2024 [facility] Work Phone: Comment on above: 1 Occurrences starting 09/30/2023 until 10/29/2024 End: 07-31-2023 Parathyroid imaging w/tomographic spect & ct NM PARATHYROID W SPECT/CT Radiology Routine Hyperparathyroidism (HCC) 1 Occurrences starting 07/01/2022 until 07/31/2023 [facility] Work Phone: Comment on above: 1 Occurrences starting 07/01/2022 until 07/31/2023 Patient Education Urinary Tract Infection, Adult (DC) Cephalexin [facility] Work Phone: Patient referral [facility] Work Phone: SARS-CoV-2 (COVID-19 ) N gene [Presence] in Respiratory specimen by RAVIN with probe detection [facility] Work Phone: SARS-CoV-2 (COVID-19 ) RNA [Presence] in Respiratory specimen by RAVIN with probe detection PRE-PROCEDURE & PRE-OPERATIVE COVID Microbiology Routine Encounter for prophylactic measures, unspecified Ordered: 03/06/2022 [facility] Work Phone: Comment on above: Ordered: 03/06/2022 SURGICAL PATHOLOGY [facility] Work Phone: Comment on above: Release Upon Ordering for 1 Occurrences starting 04/02/2023, 1 completed End: 03-13-2023 Urinalysis complete panel - Urine URINALYSIS, WITH MICROSCOPIC Lab Routine Membranous lupus nephritis syndrome (HCC) High risk medication use Systemic lupus erythematosus, unspecified SLE type, unspecified organ involvement status (HCC) Every 4 months for 6 Occurrences starting 03/13/2022 until 03/13/2023 [facility] Work Phone: Comment on above: Every 4 months for 6 Occurrences startin g 03/13/2022 until 03/13/2023 US THYROID/PARATHYRO ID (POC) ENDO USE ONLY US THYROID/PARATHYROID (POC) ENDO USE ONLY Imaging Diagnostic Routine Primary hyperparathyroidism (HCC) Ordered: 07/07/2022 [facility] Work Phone: Comment on above: Ordered: 07/07/2022 End: 07-31-2024 XR FOOT GENERAL 3V AP/LAT/OBL LEFT XR FOOT GENERAL 3V AP/LAT/OBL LEFT Radiology Routine Pain in left foot 1 Occurrences starting 07/02/2023 until 07/31/2024 [facility] Work Phone: Comment on above: 1 Occurrences starting 07/02/2023 until 07/31/2024 [facility] Immunizations Immunization Date Immunization Notes Care Provider Jacobo nolasco 09-17-2023 influenza (HD-IIV4) vaccine, age 65+ yr, high dose, quadrivalent, PF (FLUZONE HIGH-DOSE) Julia Ann PA-C Work Phone: [facility] 09-17-2023 respiratory syncytia l virus (RSV) vaccine, adjuvanted (AREXVY) Julia Ann PA-C Work Phone: [facility] 02-04-2023 pneumococcal Conjuga te, unspecified formulation Nadege Hawkins DO Work Phone: [facility] Work Phone: 02-04-2023 pneumococcal (PCV20) vaccine, 20 valent (PREVNAR 20) Nadege Hawkins DO Work Phone: [facility] 05-16-2022 influenza nasal, unspecified formulation Julia Ann PA-C Work Phone: [facility] 05-16-2022 influenza, high-dose , quadrivalent vaccine (FLUZONE HIGH DOSE QUADRIVALENT) [facility] 2 Work Phone: [facility] 05-16-2022 influenza virus vaccine, unspecified formulation Horace Harrell PA-C Work Phone: [facility] 07-23-2021 Moderna COVID-19 Vaccine 100 MCG/0.5ML Intramuscular Suspension Wojciech Treviño Work Phone: [place] [id number] DO Work Phone: 05-16-2021 influenza, high-dose , quadrivalent vaccine (FLUZONE HIGH DOSE QUADRIVALENT) Dione Reinoso MD Work Phone: [facility] 10-24-2020 Iris COVID-19 Vaccine 0.5 ML Intramuscular Suspension Wojciech Treviño Work Phone: [facility] DO Work Phone: 07-03-2020 influenza, injectabl e, quadrivalent, contains preservative Dione Reinoso MD Work Phone: [facility] 04-02-2020 zoster vaccine recombinant Dione Reinoso MD Work Phone: [facility] 10-21-2019 zoster vaccine recombinant Dione Reinoso MD Work Phone: [facility] 06-20-2019 influenza, injectabl e, quadrivalent, preservative free Dione Reinoso MD Work Phone: [facility] Work Phone: 06-17-2019 influenza, seasonal, injectable Wojciech Treviño DO Work Phone: [facility] 05-19-2018 influenza, injectabl e, quadrivalent, contains preservative Dione Reinoso MD Work Phone: [facility] 05-11-2017 influenza, injectabl e, quadrivalent, contains preservative Dione Reinoso MD Work Phone: [facility] 05-29-2016 influenza nasal, unspecified formulation Julia Ann PA-C Work Phone: [facility] 05-29-2016 influenza virus vaccine, unspecified formulation Wojciech Treviño DO Work Phone: [facility] 05-29-2016 influenza, injectabl e, quadrivalent, preservative free Nadege Hawkins DO Work Phone: [facility] 05-29-2016 influenza, seasonal, injectable, preservative free Dione Reinoso MD Work Phone: [facility] 05-27-2016 pneumococcal polysaccharide vaccine, 23 valent Dione Reinoso MD Work Phone: [facility] 09-14-2015 pneumococcal conjuga te vaccine, 13 valent Dione Rienoso MD Work Phone: [facility] Work Phone: 09-14-2015 pneumococcal polysaccharide vaccine, 23 valent Dione Reinoso MD Work Phone: [facility] Work Phone: 07-31-2015 influenza nasal, unspecified formulation Julia Ann PA-C Work Phone: [facility] 07-31-2015 influenza virus vaccine, unspecified formulation Wojciech Treviño DO Work Phone: [facility] 07-31-2015 influenza, seasonal, injectable, preservative free Dione Reinoso MD Work Phone: [facility] Work Phone: 05-24-2014 influenza, injectabl e, quadrivalent, preservative free Dione Reinoso MD Work Phone: [facility] Work Phone: 05-24-2014 influenza, seasonal, injectable Dione Reinoso MD Work Phone: [facility] 06-03-2013 influenza virus vaccine, unspecified formulation Dione Reinoso MD Work Phone: [facility] 05-11-2012 influenza virus vaccine, unspecified formulation Dione Reinoso MD Work Phone: [facility] Work Phone: 07-16-2011 influenza virus vaccine, unspecified formulation Dione Reinoso MD Work Phone: [facility] 05-02-2010 influenza virus vaccine, unspecified formulation Dione Reinoso MD Work Phone: [facility] 05-02-2010 pneumococcal polysaccharide vaccine, 23 valent Dione Reinoso MD Work Phone: [facility] Payers Date Payer Category Payer Self-pay [id number] 2021 Unknown [id number] 2020 Unknown [employer] SUPPLEMENT [id number] 2020-Present [phone] [id number] [place] [address] Indemnity [id number] 2020 Unknown [id number]. [id number] 2014 Medicare [id number] 2014 Medicare [id number]. [id number] 1959 Medicare [id number] 1959 Unknown [id number] 1956 Unknown [id number] 2.16.840.1.936259.3.579.2. 355 1956 Unknown [id number] 2.16.840.1.418029.3.579.2. 355 1956 Unknown [id number] 2.16.840.1.094363.3.579.2. 356 1956 Unknown [id number] 2.16.840.1.908248.3.579.2. 1068 1956 Unknown [id number] 2.16.840.1.614713.3.579.2. 1068 1956 Unknown [id number] 2.16.840.1.448351.3.579.2. 1068 1956 Unknown [id number] 2.16.840.1.603419.3.579.2. 593 1956 Unknown [id number] 2.16.840.1.607861.3.579.2. 593 1956 Unknown [id number] 2.16.840.1.616557.3.579.2. 593 1956 Unknown [id number] 2.16.840.1.339384.3.579.2. 1259 1956 Unknown [id number] 2.16.840.1.062779.3.579.2. 1259 1956 Unknown [id number] 2.16.840.1.343289.3.579.2. 1286 1956 Unknown [id number] 2.16.840.1.902917.3.579.2. 1244 1956 Unknown [id number] 2.16.840.1.163242.3.579.2. 1244 1956 Unknown [id number] 2.16.840.1.517242.3.579.2. 1244 Medicare Medicare-OP No Part A [id number] Private Health Insurance [employer] MCR PFFS [id number] Unknown [id number] Unknown [id number] Social History Date Type Detail Facility Start: 02-07-2022 End: 10-29-2023 Tobacco smoking status NHIS Never smoked tobacco [facility] Start: 10-29-2021 End: 10-13-2023 Alcohol intake Current drinker of alcohol (finding) [facility] Start: 07-11-2020 History SDOH Alcohol Frequency 2 [facility] Start: 12-06-2020 History SDOH Alcohol Comment very rare [facility] Start: 1955 Sex Assigned At Female [facility] Work Phone: Start: 08-13-2021 End: 11-09-2023 Exposure to SARS-CoV-2 (event) Not sure [facility] Start: 09-02-2017 End: 10-29-2023 Tobacco use and exposure Smokeless tobacco non-user [facility] Start: 07-11-2020 End: 10-29-2023 No illicit drug use No illicit drug use [facility] Work Phone: Start: 07-11-2020 End: 10-29-2023 Alcohol Use Disorder Identification Test - Consumption [AUDIT-C] [facility] Work Phone: How often to you hav e a drink containing alcohol? Monthly or less [facility] Work Phone: Average Number of Drinks Not on file [facility] Start: 11-24-2018 Gender identity Identifies as female gender (finding) [facility] Work Phone: Start: 11-24-2018 Sexual orientation Heterosexual (finding) [facility] Work Phone: Start: 03-18-2019 Alcohol Comment seldom [facility] Start: 07-27-2023 End: 09-01-2023 Alcohol intake Current non-drinker of alcohol (finding) [facility] Do you belong to any clubs or organizations such as catholic groups, unions, fraternal or athletic groups, or school groups? No [facility] Are you now , , , , never or living with a partner? [facility] How many standard dr inks containing alcohol do you have on a typical day? 1 or 2 [facility] How often do you hav e 6 or more drinks on 1 occasion? Never [facility] Do you feel stress - tense, restless, nervous, or anxious, or unable to sleep at night because your mind is troubled all the time - these days [OSQ] Only a little [facility] Start: 07-20-2022 Education 12 [facility] Start: 1955 Sex Assigned At Not on file [facility] Start: 09-17-2023 End: 10-29-2023 Alcohol intake Lifetime non-drinker (finding) [facility] Work Phone: Medical Equipment Procedure Code Equipment Code Equipment Origin al Text Equipment Identifier Dates Trident X3 Polyethylene Insert 0deg 36mm Sz E [id number] Start: 12-18-2020 Stem Accolade Ii 5 132d Femoral - [id number] Start: 12-18-2020 Shell Trident Ii 52mm E Tritanium Acetabular 5 Screw Hole Cluster Sterile - [id number] Start: 12-18-2020 Head V40 36mm 0m m Offset Taper Biolox Delta Femoral Hip - [id number] Start: 12-18-2020 Plate 3d Lck Ginna iax Bn Rt Ft - [id number] Start: 04-03-2014 Screw Bn 4mm 32m m Autofx - [id number] Start: 04-03-2014 Screw 3.0x38 Aut ofix - [id number] Start: 04-03-2014 Screw Bn 3.5mm 1 6mm Variax Ft - [id number] Start: 04-03-2014 Screw Bn 3.5mm 1 4mm Variax Ft - [id number] Start: 04-03-2014 Screw Bn 3.5mm 1 2mm Variax Ft - [id number] Start: 04-03-2014 Screw Trident Ii 6.5mm 25mm Bone Low Profile Hexagonal Sterile - [id number] Start: 12-18-2020 Wire Fix .062in 9in Krsh Ss - [id number] Start: 04-03-2014 Goals Date Patient Goal Desired Activity /State Functional Status Date Assessment Result Facility 02-09-2022 Functional status Patient at Baseline [facility] Work Phone: 02-07-2022 Functional status Patient Not at Baseline [facility] Work Phone: Mental Status Date Assessment Result Facility 02-09-2022 Cognitive function Cognitive Sta tus Patient at Baseline [facility] Work Phone: 02-07-2022 Cognitive function Cognitive Sta tus Patient Not at Baseline [facility] Work Phone: Clinical Notes 10-14-2017 to 11-09-2023 Kalyn Anthony LPN - 11/09/2023 9:00 AM EDTHvanessa Conway MD - 10/29/2023 8:40 AM EDTPatient InstructionsTelephone Encounter - Anastasiya Jackman - 10/27/2023 3:34 PM EDTPatient Instructions Note Date & Type Note Facility 11-09-2023 History of Present illness Narrative Patient here for at EKG visit ordered by Dr. Conway due to A-Fib. Dr. Botello in suite. Patient here due to Change in medication at last OV . Medication list Updated verbally. Sob cardiac complaint. Discussed with Jinny Sullivan RN prior to discharge. To Dr. Conway for review Vitals: 11/09/23 0934 BP: 124/78 BP Location: Left arm Patient Position: Sitting Pulse: 90 SpO2: 94% Weight: 120 kg (264 lb) Height: 1.702 m (5' 7 ) documented in this encounter [facility] Work Phone: 10-29-2023 History of Present illness Narrative Subjective Jesus Wolf is a 68 y.o. female Chief Complaint Follow-up HPI Patient is in the office for follow-up for paroxysmal atrial fibrillation. Since I saw her last time and starting flecainide she was scheduled to have cardioversion but when she showed up for the procedure she was back in sinus rhythm. She brought with her daily records of her blood pressure and heart rate for the last several weeks. Most of the time she is in flutter and occasionally she is back in sinus rhythm on her own. She is symptomatic with dyspnea. Lungs sounded normal, heart rate was 96 bpm, blood pressure was normal. No lower extremity edema. Plan of action is detailed below. ASSESSMENT AND PLAN: 1. Paroxysmal atrial fibrillation, status post radiofrequency ablation with pulmonary vein isolation at [facility] in 2019. Patient seems to be in and out of atrial flutter despite flecainide 100 mg twice daily and she is currently anticoagulated with Eliquis. We discussed options of therapy and she favors going back for the ablation which I agree with her. She will be referred to Dr. Chino for ablation of flutter. Meanwhile while waiting will increase flecainide up to 150 mg twice daily and repeat ECG next week. She will come back to see me in 4 months. Echocardiogram 2022 was unremarkable and nuclear stress test recently was normal. Recent lab data from the [facility] were reviewed creatinine 1.0. 2. Sleep apnea, unable to utilize CPAP machine. She utilizes oxygen at night. 3. Systemic lupus, in remission, on medical therapy with hydroxychloroquine. Managed by the [facility] 4. Morbid obesity, patient is trying to lose weight with lifestyle modification and seems to be motivated. 5. Hyperlipidemia, on medical therapy, currently on 40 mg daily of atorvastatin. Lipid profile has been monitored closely and has been under control. 6. High-risk medication, on Eliquis no bleeding complications and on flecainide with normal renal function 7. Hypertension, on medical therapy, currently under control 8. History of hypercalcemia caused by hyperparathyroidism status post parathyroidectomy last year at the [facility] with success 10. Ascending aortic aneurysm measured 4.6 cm from echocardiogram September 2021, follow-up echocardiogram in 2021 measured only 3.8 cm Yuriy Conway MD, [facility] Review of Systems Cardiovascular: Positive for chest pain and palpitations. Respiratory: Positive for shortness of breath. Neurological: Positive for dizziness. Vitals: 10/29/23 0849 BP: 110/58 BP Location: Left arm Patient Position: Sitting Pulse: 96 Weight: 118 kg (260 lb) Height: 1.702 m (5' 7 ) Objective Physical Exam Constitutional: Appearance: Normal appearance. HENT: Nose: Nose normal. Neck: Vascular: No carotid bruit. Cardiovascular: Rate and Rhythm: Normal rate. Rhythm irregular. Pulses: Normal pulses. Heart sounds: Normal heart sounds. Pulmonary: Effort: Pulmonary effort is normal. Abdominal: General: Bowel sounds are normal. Palpations: Abdomen is soft. Musculoskeletal: General: Normal range of motion. Cervical back: Normal range of motion. Right lower leg: No edema. Left lower leg: No edema. Skin: General: Skin is warm and dry. Neurological: General: No focal deficit present. Mental Status: She is alert. Psychiatric: Mood and Affect: Mood normal. Behavior: Behavior normal. Thought Content: Thought content normal. Judgment: Judgment normal. Allergies Codeine; Diphth,pertus(acell),tetanus; Dofetilide; Epinephrine; Iodinated contrast media; Prochlorperazine; Sulfa (sulfonamide antibiotics); and Tetanus vaccines and toxoid Current Medications Current Outpatient Medications: alendronate (Fosamax) 70 mg tablet, Take 1 tablet (70 mg) by mouth every 7 days. Take in the morning with a full glass of water, on an empty stomach, and do not take anything else by mouth or lie down for the next 30 min., Disp: , Rfl: atorvastatin (Lipitor) 40 mg tablet, Take 1 tablet (40 mg) by mouth once daily., Disp: 90 tablet, Rfl: 3 B complex-vitamin C-folic acid (Dialyvite) 100-1 mg tablet, Take 1 tablet by mouth once daily., Disp: , Rfl: belimumab (Benlysta) 120 mg recon soln IV injection, Infuse into a venous catheter., Disp: , Rfl: Bifidobacterium infantis (ALIGN ORAL), Take 1 tablet by mouth once daily., Disp: , Rfl: busPIRone (Buspar) 10 mg tablet, Take 1 tablet (10 mg) by mouth once daily at bedtime., Disp: , Rfl: celecoxib (CeleBREX) 200 mg capsule, Take 1 capsule (200 mg) by mouth once daily., Disp: , Rfl: cholecalciferol (Vitamin D-3) 50 mcg (2,000 unit) capsule, Take 1 capsule (50 mcg) by mouth once daily., Disp: , Rfl: cholestyramine (Questran) 4 gram packet, Take 1 packet (4 g) by mouth 3 times a day with meals., Disp: , Rfl: colestipol (Colestid) 1 gram tablet, Take 2 tablets (2 g) by mouth 2 times a day. Take at least 1 hour after or 4 hours before other medications., Disp: , Rfl: Eliquis 5 mg tablet, Take 1 tablet by mouth twice daily, Disp: 60 tablet, Rfl: 0 ferrous sulfate 325 (65 Fe) MG tablet, Take 1 tablet by mouth once daily with breakfast., Disp: , Rfl: furosemide (Lasix) 40 mg tablet, Take 1 tablet (40 mg) by mouth once daily., Disp: , Rfl: hydroxychloroquine (Plaquenil) 200 mg tablet, Take 1 tablet (200 mg) by mouth 2 times a day., Disp: , Rfl: levothyroxine (Synthroid, Levoxyl) 50 mcg tablet, Take 1 tablet (50 mcg) by mouth once daily in the morning. Take before meals., Disp: , Rfl: mesalamine (Lialda) 1.2 gram EC tablet, Take 1.2 mg by mouth 4 times a day., Disp: , Rfl: multivitamin with minerals iron-free (Centrum Silver), Take 1 tablet by mouth once daily., Disp: , Rfl: pantoprazole (ProtoNix) 40 mg EC tablet, Take 1 tablet (40 mg) by mouth once daily in the morning. Take before meals. Do not crush, chew, or split., Disp: , Rfl: sucralfate (Carafate) 100 mg/mL suspension, Take 10 mL (1 g) by mouth 4 times a day., Disp: , Rfl: venlafaxine XR (Effexor XR) 150 mg 24 hr capsule, Take 1 capsule (150 mg) by mouth once daily., Disp: , Rfl: flecainide (Tambocor) 150 mg tablet, Take 1 tablet (150 mg) by mouth 2 times a day., Disp: 180 tablet, Rfl: 3 metoprolol succinate XL (Toprol-XL) 50 mg 24 hr tablet, Take 1 tablet (50 mg) by mouth once daily. Take one tablet by mouth every morning and 2 tablets by mouth every evening, Disp: , Rfl: EKG done in office today Assessment/Plan 1. Paroxysmal atrial fibrillation (CMS/HCC) Follow Up In Cardiology Follow Up In Cardiology ECG 12 Lead Referral to Cardiac Electrophysiology flecainide (Tambocor) 150 mg tablet ECG 12 Lead 2. High risk medication use 3. Essential hypertension 4. [facility] current use of anticoagulant therapy 5. Obstructive sleep apnea 6. BMI 40.0-44.9, adult (CMS/HCC) 7. Never smoked any substance 8. Systemic lupus erythematosus, unspecified SLE type, unspecified organ involvement status (CMS/HCC) Scribe Attestation By signing my name below, Mara Sharma LPN , [employer] attest that this documentation has been prepared under the direction and in the presence of Yuriy Conway MD. Provider Attestation - Scribe documentation All medical record entries made by the Scribe were at my direction and personally dictated by me. I have reviewed the chart and agree that the record accurately reflects my personal performance of the history, physical exam, discussion and plan. documented in this encounter [facility] Work Phone: 10-29-2023 Instructions Kalyn Anthony LPN - 10/29/2023 8:40 AM EDT Please bring all medicines, vitamins, and herbal supplements with you when you come to the office. Prescriptions will not be filled unless you are compliant with your follow up appointments or have a follow up appointment scheduled as per instruction of your physician. Refills should be requested at the time of your visit. documented in this encounter [facility] Work Phone: 10-27-2023 Miscellaneous Notes Received eye report from [facility] dated on 10/26. Scanned in chart for review. documented in this encounter [facility] 10-23-2023 Miscellaneous Notes Radiology Service Progress Note PATIENT NAME: Jesus Wolf DATE OF SERVICE: October 23, 2023 TIME: 12:45 PM PATIENT IDENTITY VERIFICATION COMPLETED USING TWO [...] NO. PATIENT RELEVANT IMPLANT DATA REVIEWED: Yes PATIENT PRESENTS WITH AN IMPLANTABLE OR ATTACHED ASSISTANT PRINCIPAL: No RADIOLOGY DEPARTMENT: MR; Exam(s) Completed: Body: Pancreas/Biliary PERIPHERAL IV DATA: Site assessment: Clean,Dry and Intact, Site disposition Discontinued SIGNED BY: RT Monica(R) October 23, 2023 12:45 PM documented in this encounter [facility] 10-23-2023 Nurse Note [facility] MRI Anxiolysis Note PATIENT NAME: Jesus Wolf DATE OF SERVICE: October 23, 2023 TIME: 11:37 AM PATIENT WEIGHT: 266LBS PATIENT IDENTITY VERIFICATION COMPLETED USING TWO (2) [...] Yes ALLERGIES: Reviewed and unchanged CONTRAST ALLERGY: No, allergic to CT IV contrast, not MRI contrast MEDICATIONS REVIEWED: YES EXAM: MRI - CONTRAST TYPE: GROUP II IV SITE: Ambulatory: A peripheral IV was started in the Right antecubital site with a Angio cath: 20 gauge.diffusics PERIPHERAL IV ACCESS: Discontinued ANXIOLYSIS/ANESTHESIA: Xanax 0.5 mg PO PATIENT DISCHARGED TO: Home/Self Care Pt states that she feels fine, no complaints of lightheadedness/dizziness. Vitals stable. Pt d/c home with . SIGNATURE: Chantelle Grace RN PATIENT NAME: Jesus Wolf DATE: October 23, 2023 TIME: 11:37 AM documented in this encounter [facility] 10-13-2023 Note HNO ID: [id number] Author: JULIA ANN PA-C Service: ? Author Type: Physician Truck Engine Technician Type: Progress Notes Filed: 10/13/2023 13:39 Note Text: Osteoporosis and Metabolic Bone Disease Date of Service: 10/13/2023 Patient: Jesus Wolf Medical Record: [id number] Primary Care Physician: Wojciech Treviño MD, DO Last Rheumatology visit: 04/10/2023 (with Nadege Hawkins) History of Present Illness Jesus Wolf is a 68 year old White female who presents on 10/13/2023 for an in-person visit for evaluation of Osteopenia. INTERVAL HISTORY Presents today for osteopenia follow up. No new fractures or falls. No planned dental procedures. Has been taking Fosamax since 04/2022 as instructed. Tolerating well with no concerns. Patient had a parathyroidectomy on 08/27/2022. Taking 500 mg of calcium daily. Taking vitamin D. She is currently in a walking boot for L foot due to severe OA. Clerk Cashier is trailing 6 weeks in the boot. If symptoms improve, four slide machine setter will prescribe a brace otherwise will discuss surgical options. Disease History Previous Visit History: HISTORY OF PRESENT ILLNESS Current Medications Hydroxychloroquine [...] exam in Sep 2020 and was normal Osteoporosis History No history of fractures Most [...] Daily Vitamin D: 2000 IU Current Multivitamin: Yes Dental: No planned dental procedures. Last appointment: [...] use (Comment: Daily steroid uses from about 7210-2920) Previous use No rheumatoid arthritis Secondary osteoporosis [...] Asymptomatic postmenopausal status . DXA Model: A50 Remedify (S/N: [id number]) SITE SCANNED: Lumbar Spine, Left Hip, AND Left forearm Date Scanned: 03/13/2022 3:21 PM RESULT: Lumbar spine (L1-L3): 1.248 g/cm2, T-score 0.7, Z-score 2.3 Lumbar spine: 09/02/2017: 1.171 g/cm2 Lumbar spine change: +0.077 g/cm2, +6.6 %, significant increase Left Femoral Neck: 0.740 g/cm2, T-score -2.1, Z-score -0.6 Left Femoral Neck: 09/02/2017: 0.818 g/cm2 Left Femoral Neck Change: -0.078 g/cm2, -9.5 %, significant decrease (more content not included)... [facility] 10-13-2023 History of Present illness Narrative Images from the original note were not included. Osteoporosis and Metabolic Bone Disease Date of Service: 10/13/2023 Patient: Jesus Wolf Medical Record: [id number] Primary Care Physician: Wojciech Treviño MD, DO Last Rheumatology visit: 04/10/2023 (with Nadege Hawkins) History of Present Illness Jesus Wolf is a 68 year old White female who presents on 10/13/2023 for an in-person visit for evaluation of Osteopenia. INTERVAL HISTORY Presents today for osteopenia follow up. No new fractures or falls. No planned dental procedures. Has been taking Fosamax since 04/2022 as instructed. Tolerating well with no concerns. Patient had a parathyroidectomy on 08/27/2022. Taking 500 mg of calcium daily. Taking vitamin D. She is currently in a walking boot for L foot due to severe OA. Clerk Cashier is trailing 6 weeks in the boot. If symptoms improve, four slide machine setter will prescribe a brace otherwise will discuss surgical options. Disease History Previous Visit History: HISTORY OF PRESENT ILLNESS Current Medications Hydroxychloroquine [...] exam in Sep 2020 and was normal Osteoporosis History No history of fractures Most [...] Daily Vitamin D: 2000 IU Current Multivitamin: Yes Dental: No planned dental procedures. Last appointment: [...] use (Comment: Daily steroid uses from about 2194-9650) Previous use No rheumatoid arthritis Secondary osteoporosis [...] DIAGNOSTIC Asymptomatic postmenopausal status . DXA Model: Networked Organisms (S/N: [id number]) SITE SCANNED: Lumbar Spine, Left Hip, & [...] should take calcium, the recommended dose is 9813-5763 mg per day along with 800-1000 IU vitamin D (some patients may require higher doses of vitamin D). LIMITATIONS: - Degenerative changes in the spine may artificially increase bone mass and make the reading unreliable FOLLOW-UP: - 2-years cc. Dr. Hardin Farm Management Adviser: findin Transcribe Date/Time: Mar 13 2022 3:34P [...] OB History No obstetric history on file. Patient-Entered Data PAIN EVALUATION 10/09/2023 1550 10/13/2023 1031 Pain Level: -- 6 Pain Location: -- -- all joints and headache Description: Aching;Dull -- Duration Units: Months Years Frequency: Continuous Continuous PROMIS Assessments PROMIS Assessments 04/10/2023 06/26/2023 10/09/2023 Physical Health Percentile 10% - 7% Mental Health Percentile 13% - 26% Pain Score 3 - 3 Pain Interference Percentile 12% - 12% Fatigue Percentile 16% - 18% Physical Function Percentile 7% 7% 4% RAPID 3 [place] Activities of Daily Living [...] Depression 20 - 27: Severe Depression PHQ-9 11/13/2021 04/10/2023 06/26/2023 PHQ-2 Score 0 0 1 PHQ-9 Score - - - Review of Systems Review of Systems CONSTITUTION: Negative for: Fever and Recent weight change HEENT: Negative for: Nosebleeds, Mouth sores, Trouble swallowing and Dry mouth RESPIRATORY: Positive for: Shortness of breath and Pain with breathing Negative for: Cough GASTROINTESTINAL: Negative for: Melena, Diarrhea, Heartburn and Abdominal pain MUSCULOSKELETAL: Positive for: Arthralgias, Myalgias, Muscle weakness and Morning Joint Stiffness Negative for: Joint swelling NEUROLOGICAL: Positive for: Headaches Negative for: Numbness and Memory loss SKIN: Positive for: Rash and Sun Sensitive Rash Negative for: Skin changes, Hair loss and Nail changes EYES: Negative for: Eye pain, Eye redness, Eye dryness and visual disturbance CARDIOVASCULAR: Positive for: Chest pain Negative for: Leg swelling GENITOURINARY: Negative for: Dysuria and [...] TUNNEL RIGHT WRIST surgical correction COLONOSCOPY 05/10/2019 [facility] COLONOSCOPY GEN ANES 07/23/2020 Dr. Reinoso/Diverticulosis/Hemorrhoids/ Ulcerative Colitis/Rpt in 2 yrs. COLONOSCOPY SCREENING 03/2023 EGD EUS 01/11/2020 [facility] LASIK Right prior to 1999 MRI PANC/JEANIE WO/W IVCON 12/20/2019 OVARIAN CYSTECTOMY PAST SURGICAL HISTORY OF 07/2013 bilateral foot procedure, [place] PAST SURGICAL HISTORY OF 2018,2019 Ablation X2 [...] Start End alendronate (FOSAMAX) 70 mg tablet 09/21/2023 12/20/2023 Sig - Route: Take 1 tablet by mouth one time a week. In the morning with a full glass of water, on an empty stomach. Do not take anything else by mouth or lie down for the next 30 minutes. - ORAL Current Calcium, Multivitamin, and Vitamin D Use on File Minerals and Electrolytes - Calcium Replacement/Vitamin D Combinations Start End dqpkqzo-xyxwztbmr-rdjaumb D3 500 mg-5 mcg (200 unit) per tablet 08/27/2022 -- Sig - Route: Take 1 tablet by mouth three times daily. - ORAL Class: OTC Vitamins - D Derivatives Start End Cholecalciferol, Vitamin D3, 2,000 unit cap -- Sig - Route: Take by mouth once daily. - ORAL Class: Historical Med Multivitamin and Mineral Combinations Start End MV with Avf-Skicjzbb-Uzbkkv (CENTRUM SILVER) 0.4 mg-300 mcg- 250 mcg tab -- Sig - Route: Take 1 tablet by mouth once daily. - ORAL Class: Historical Med Minerals and Electrolytes - Calcium Replacement/Vitamin D Combinations Start End grlddyp-oarmyhwxh-bcmqgii D3 500 mg-5 mcg (200 unit) per tablet 08/27/2022 -- Sig - Route: Take 1 tablet by mouth three times daily. - ORAL Class: OTC Current Outpatient Medications Medication Sig flecainide (TAMBOCOR) 100 mg tablet Take 1 tablet by mouth every 12 hours. alendronate (FOSAMAX) 70 mg tablet Take 1 tablet by mouth one time a week. In the morning with a full glass of water, on an empty stomach. Do not take anything else by mouth or lie down for the next 30 minutes. Mesalamine (LIALDA) 1.2 gram EC tablet Take 4 tablets by mouth once daily. pantoprazole DR (PROTONIX) 40 mg tablet take 1 tablet by mouth twice a day colestipol (COLESTID) 1 gram tablet TAKE 2 TABLETS BY MOUTH TWICE A DAY hydrOXYchloroQUINE (PLAQUENIL) 200 mg tablet take 1 tablet by mouth twice a day with food metoprolol succinate ER (TOPROL XL) 50 mg 24 hr tablet TAKE 1 TABLET BY MOUTH IN THE MORNING AND 2 TABLETS BY MOUTH IN THE EVENING ELIQUIS 5 mg tab(s) Take 5 mg by mouth twice daily. ferrous sulfate (IRON) 325 mg (65 mg iron) tablet Take 1 tablet by mouth once daily. rekdhre-avzwuyrnj-uqspiqf D3 500 mg-5 mcg (200 unit) per tablet Take 1 tablet by mouth three times daily. MV with Qhs-Oarghovw-Uhrbzk (CENTRUM SILVER) 0.4 mg-300 mcg- 250 mcg [...] w-minerals/lut(CENTRUM SILVER TAB) Take one(1) tablet daily. iv contrast (will be provided with [...] guidelines link. (Patient not taking: Reported on 10/13/2023) amoxicillin (AMOXIL) 500 mg capsule Take 4 tablets one hour prior to dental procedure (Patient not taking: Reported on 10/13/2023) cholestyramine-sucrose (QUESTRAN) 4 gram powder Take 4 g by mouth three times daily with meals. (Patient not taking: Reported on 10/13/2023) acetaminophen (TYLENOL) 500 mg tablet Take 1 tablet by mouth every 4 hours as needed for pain. (Patient not taking: Reported on 10/13/2023) No current facility-administered medications for this visit. Labs Calcium Latest Ref Rng & Units 08/28/2022 09/09/2022 02/04/2023 04/22/2023 CA24HR 100.0 - 300.0 mg/24 hr - - - - CA 8.5 - 10.2 mg/dL 10.2 9.2 9.8 9.2 Alkaline Phosphatase Latest Ref Rng & Units 06/12/2022 06/30/2022 02/04/2023 04/22/2023 ALKPHOS 34 - 123 U/L 134(H) 119 116 113 ALKALINE PHOSPHATASE 34 - 123 U/L 134(H) 119 116 113 TSH Latest Ref Rng & Units 07/14/2012 09/11/2020 05/16/2021 TSH 0.270 - 4.200 uU/mL 2.760 5.850(H) 0.328 Vitamin D Latest Ref Rng & Units 05/16/2021 04/18/2022 07/31/2022 02/04/2023 VITAMIN D 25 HYDROXY 31.0 - 80.0 ng/mL 62.7 58.2 44.3 52.0 VIT D1, 25 DIHYDROXY 19.9 - 79.3 pg/mL - 35.6 - - Creatinine Latest Ref Rng & Units 06/12/2022 06/30/2022 02/04/2023 04/22/2023 CREAT 0.58 - 0.96 mg/dL 1.27(H) 0.96 1.14(H) 1.24(H) NTX 5.0 - 65.0 nM BCE/mM Creatinine - - - - Protein, Total Latest Ref Rng & Units 08/28/2022 09/09/2022 02/04/2023 04/22/2023 PTH 15 - 65 pg/mL 12(L) 29 47 - TPROT 6.3 - 8.0 g/dL - - 6.8 6.3 Albumin Latest Ref Rng & Units 06/12/2022 06/30/2022 02/04/2023 04/22/2023 ALB 3.9 - 4.9 g/dL 4.2 4.3 4.2 4.2 PTH Latest Ref Rng & Units 07/31/2022 08/28/2022 09/09/2022 02/04/2023 PTH, INTACT 15 - 65 pg/mL 99(H) 12(L) 29 47 Immunoglobulins Latest Ref Rng & Units 02/21/2010 [...] Only No resulted procedures found. Health Maintenance Meningococcal B Vaccine: Consider Based On Risk(1 of 4 - Increased Risk) Never done MMR Vaccine(1 of 2 - Risk 2-dose series) Never done Annual PCP Team Chronic Disease Visit Never done DTaP,Tdap,Td Vaccine(1 - Tdap) Never done Hepatitis A Vaccine(1 of 2 - Risk 2-dose series) Never done Hepatitis B Vaccine(1 of 3 - Risk 3-dose series) Never done Covid-19 Vaccine() due on 04/17/2023 Advance Directive Discussion Never done Depression Assessment Never done Mammogram Screening due on 04/01/2024 Colorectal Cancer Screening due on 04/02/2024 BP Controlled (<130/80) due on 10/13/2024 Diabetes Screening due on 04/22/2026 Lipid Screening due on 04/22/2028 Bone Density Screening Completed Influenza Vaccine Completed RSV Vaccine Completed Hepatitis C Screening Completed Shingrix Vaccine Completed Pneumococcal Vaccine: 65+ Completed Physical Exam BP 114/74 Pulse 90 Temp 36.8 C (98.2 F) (Oral) Ht 168.9 cm (5' 6.5 ) Wt 120.7 kg (266 lb 1.5 oz) LMP 07/17/2011 (Within Years) BMI 42.31 kg/m EYES: ARA, conjunctiva and sclera normal. EARS: External ears normal. NOSE/SINUS: Nares normal. THROAT: Normal and no erythema. DENTAL: Normal. HEART: RRR with normal S1 and S2 ,no murmurs, no gallops, no JVD appreciated. LUNGS: Clear to auscultation. NEURO: Awake, alert and oriented x 3 and no involuntary motions. Examination of Back: Profile -Dorsal kyphosis TS: No Back Pain: no Balance: Not assess - L foot in a walking boot. Impression & Plan The patient has: osteopenia No history of fractures Most Recent BMD Date: 03/13/22 LS: 1.28 g/cm2 Hip - Left: 0.74 g/cm2 Radius: 0.735 g/cm2 LS T-Score: 0.7 increase L Hip T-Score: -2.1 decrease Radius T-Score: -1.6 no previous value Jesus Wolf is a 68 year old female with history of SLE presenting for an osteopenia evaluation. She has previously been treated with Fosamax from 02/2010-04/2010 & 10/2017-10/2019 and Boniva from 04/2010-06/2012. Currently on Fosamax since 04/2022. S/p parathyroidectomy in 08/2022. Calcium intake is adequate. Vitamin D is adequate. Osteoporosis FRAX Risk Factors No Fractures No family history of osteoporosis No parent with a hip fracture Not a current smoker Glucocorticoid use (Comment: Daily steroid uses from about 5569-3201) Previous use No rheumatoid arthritis Secondary osteoporosis Malabsorption No alcohol use more than 3 units per day FRAX (WHO 10 Year Fracture Risk) Date of FRAX assessment: 05/12/22 Hip: 1.6% Major Osteoporotic: 10% Diagnoses: (M85.80) Osteopenia, unspecified location (primary encounter diagnosis) (Z98.890, Z90.89) S/P parathyroidectomy (Z79.83) [facility] (current) use of 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 (E55.9) Vitamin D deficiency disease Plan: Continue Fosamax. Update Lab. Calcium 1200 to 1500 mg daily recommended- if cannot achieve this through diet, then supplement recommended in divided doses. Continue vitamin D. Weight bearing exercise as tolerated recommended. Fall precautions discussed. Continue fall prevention with physical therapy. Repeat bmd on same machine as prior around 02/2024. Continued f/u with PCP for routine health maintenance advised. Orders this visit: Office Visit on 10/13/23 DXA-AXIAL SKELETON WITH VFA COMP METABOLIC PANEL VITAMIN D 25 HYDROXY C TELOPEPTIDE, BETA Return in about 5 months (around 03/12/2024) for follow up after DXA. Medical Decision Making: Problems: Low: Stable chronic illness Data: Unique test result(s) reviewed: 3+ Unique test(s) ordered: 3+ Risk: Low: Low risk from testing/treatment Medical Decision Making Level: 3 - Low ____ Julia Ann PA-C Date: October 13, 2023 documented in this encounter [facility] 10-09-2023 Note HNO ID: [id number] Author: SELIN BIRMINGHAM LPN Service: ? Author Type: LICENSED NURSE Type: Progress Notes Filed: 10/09/2023 13:03 Note Text: Large tall pneumatic aircast applied to left foot. Patient teaching of application, removal and basic care of aircast provided. Even up and pneumatic aircast reference literature provided. Patient verbalized understanding. JENNIFFER De La Cruz [facility] [place] 10-09-2023 Note HNO ID: [id number] Author: BEVERLY FRANCO DPM Service: ? Author Type: Physician Type: Progress Notes Filed: 10/09/2023 13:03 Note Text: SERVICE DATE: October 09, 2023 PCP: Wojciech Treviño MD, DO Subjective Patient ID: Jesus is a 68 year old female. Patient presents today for follow-up of bilateral foot pain stating that her left foot remains very painful on the bottom (indicating areas of 4-5 TMT) and also at the area across the foot on the medial side. She also complains of calluses that crack open on the side of her right big toe. Chief Complaint: Patient presents with: Callous: Bilateral foot PAIN EVALUATION 10/02/2023 1040 Pain Level: 8 Pain Location: Foot-Left Description: Aching;Burning;Sharp;Sore;Throbbin g Duration Units: Days Frequency: Continuous Intervention/Comfort measure: Other: See comment Comments: Staying off of it HPI patient has tried power step inserts and states that they aggravate the left foot, she has tried a variety of different creams and ointments and lotions and moisturizers for the right foot which failed to provide any relief or improvement. Patient is anticoagulated with Eliquis. She has history of right first MTPJ arthrodesis Review of Systems ACTIVE PROBLEM LIST Edema Proteinuria Essential Hypertension Atrial Fibrillation (Hcc) Membranous Glomerulonephritis Vitamin D Deficiency Sle (Systemic Lupus Erythematosus) ([facility]) Fibromyalgia Sleep Apnea Encounter for Long-Term (Current) [...] TUNNEL RIGHT WRIST surgical correction COLONOSCOPY 05/10/2019 [facility] COLONOSCOPY GEN ANES 07/23/2020 Dr. Reinoso/Diverticulosis/Hemorrhoids/ Ulcerative Colitis/Rpt in 2 yrs. COLONOSCOPY SCREENING 03/2023 EGD EUS 01/11/2020 [facility] LASIK Right prior to 1999 [...] red spot in area of shot MEDICATIONS: flecainide (TAMBOCOR) 100 mg tablet Take 1 tablet by mouth every 12 hours. iv contrast (will be provided with radiology [...] and de-access according to line specific nursing protoc (more content not included)... [facility] [place] 10-09-2023 History of Present illness Narrative Large tall pneumatic aircast applied to left foot. Patient teaching of application, removal and basic care of aircast provided. Even up and pneumatic aircast reference literature provided. Patient verbalized understanding. JENNIFFER De La Cruz Images from the original note were not included. SERVICE DATE: October 09, 2023 PCP: Wojciech Treviño MD, DO Subjective Patient ID: Jesus is a 68 year old female. Patient presents today for follow-up of bilateral foot pain stating that her left foot remains very painful on the bottom (indicating areas of 4-5 TMT) and also at the area across the foot on the medial side. She also complains of calluses that crack open on the side of her right big toe. Chief Complaint: Patient presents with: Callous: Bilateral foot PAIN EVALUATION 10/02/2023 1040 Pain Level: 8 Pain Location: Foot-Left Description: Aching;Burning;Sharp;Sore;Throbbin g Duration Units: Days Frequency: Continuous Intervention/Comfort measure: Other: See comment Comments: Staying off of it HPI patient has tried power step inserts and states that they aggravate the left foot, she has tried a variety of different creams and ointments and lotions and moisturizers for the right foot which failed to provide any relief or improvement. Patient is anticoagulated with Eliquis. She has history of right first MTPJ arthrodesis Review of Systems ACTIVE PROBLEM LIST Edema [...] TUNNEL RIGHT WRIST surgical correction COLONOSCOPY 05/10/2019 [facility] COLONOSCOPY GEN ANES 07/23/2020 Dr. Reinoso/Diverticulosis/Hemorrhoids/ Ulcerative Colitis/Rpt in 2 yrs. COLONOSCOPY SCREENING 03/2023 EGD EUS 01/11/2020 [facility] LASIK Right prior to 1999 [...] red spot in area of shot MEDICATIONS: flecainide (TAMBOCOR) 100 mg tablet Take 1 tablet by mouth every 12 hours. iv contrast (will be provided with radiology [...] in the MR contrast administration guidelines link. alendronate (FOSAMAX) 70 mg tablet Take 1 tablet by mouth one time a week. In the morning with a full glass of water, on an empty stomach. Do not take anything else by mouth or lie down for the next 30 minutes. Mesalamine (LIALDA) 1.2 gram EC tablet Take 4 tablets by mouth once daily. pantoprazole DR (PROTONIX) 40 mg tablet take 1 tablet by mouth twice a day amoxicillin (AMOXIL) 500 mg capsule Take 4 tablets one hour prior to dental procedure colestipol (COLESTID) 1 gram tablet TAKE 2 TABLETS BY MOUTH TWICE A DAY hydrOXYchloroQUINE (PLAQUENIL) 200 mg tablet take 1 [...] every 4 hours as needed for pain. ofslxfj-aovcflsbh-solghmg D3 500 mg-5 mcg (200 unit) per tablet Take 1 tablet by mouth three times daily. MV with Udk-Afzugvrr-Hdgoyz (CENTRUM SILVER) 0.4 mg-300 mcg- 250 mcg [...] reviewed per this encounter. PHYSICAL EXAM O: DP +2/4, PT nonpalpable; bilateral. Neurological: Intact epicritic sensation with no reproducible neuritic symptom bilateral Hair: Absent bilateral. Temp: Warm to warm tibia to toes bilateral Skin: Pinch callus right hallux IPJ and MTPJ with fissuring at IPJ site. Clinical: HAV left, surgically ankylosed right first MTPJ. Mild rocker-bottom appearance of 4-5 TMT left. Positive pain on palpation across midfoot left, increased with isolated sagittal manipulation and medial and lateral stress. Left second hammertoe deformity. X-Ray: X-rays reviewed from 07/02/2023 positive for severe osteoarthritic changes of Lisfranc's joint bilateral, involving 1-5 left, navicular cuneiform articulation left, 1-3 right with yzls-zy-gute joint space loss and periarticular subchondral sclerotic changes, cystic changes left Assessment/Plan ASSESSMENT Diagnosis (L84) Pre-ulcerative calluses (primary encounter diagnosis) (M19.072) Osteoarthritis of midtarsal joint of left foot (M19.071) Osteoarthritis of midtarsal joint of right foot No orders found for this visit on 10/09/23. PLAN Reviewed complaint, pathology, etiology, x-rays, anatomy, treatment options conservative and surgical, prognosis, short and termite control technician expectations, associated with each complaint, finding, related treatment option. Recommended Crisco under occlusion for fissured skin, dispensed Silipos for right hallux, dispensed pneumatic Aircast for offloading left foot for all weightbearing activity. Patient will follow-up in 6 weeks for reevaluation of response to treatment, if she has responded well we will help provide an order for a custom AFO, if not we will consider referral for surgical evaluation of the midfoot FOLLOW-UP: 6 Weeks SIGNATURE: Beverly Franco DPM PATIENT NAME: Jesus Wolf DATE: October 09, 2023 TIME: 12:38 PM Beverly Franco DPM documented in this encounter [facility] 10-01-2023 Note HNO ID: [id number] Author: THOR CRENSHAW RN Service: ? Author Type: Registered Nurse Type: Progress Notes Filed: 10/01/2023 12:44 Note Text: Since your last infusion, have [...] No New rash or open sores? No [facility] [place] 10-01-2023 History of Present illness Narrative Since your [...] open sores? No documented in this encounter [facility] 09-30-2023 Miscellaneous Notes Patient calling asking about imaging for pancreas. She was due 07/2023. Asking for order to be placed # [phone] documented in this encounter [facility] 09-30-2023 Miscellaneous Notes Spoke with patient on phone and confirmed patient will be in tomorrow for scheduled infusion. LMOM for patient to call back and confirm scheduled infusion. documented in this encounter [facility] 09-17-2023 History of Present illness Narrative Subjective Jesus Wolf is a 68 y.o. female Chief Complaint Annual Exam HPI Patient is in the office for follow-up for the problems noted below. She noticed recently symptoms of unusual sweating and dizziness and fatigue. She was found to be in atrial flutter heart rate 119 bpm. Pressure has acceptable and a systolic in the 100 mmHg. She had parathyroid resection surgery last year which took care of hypercalcemia. She had nuclear stress test which was normal and echocardiogram which was unremarkable. She is looking very well compared to last visit and apart from the flutter everything else is fine. She is intolerant to CPAP machine. She is with morbid obesity and has been trying to lose weight but unsuccessfully. Her medical therapy was reviewed. Her systemic lupus has been stable on medical therapy followed by the [facility]. She has been chronically anticoagulated with Eliquis and has been compliant ASSESSMENT AND PLAN: 1. Paroxysmal atrial fibrillation, status post radiofrequency ablation with pulmonary vein isolation at [facility] in 2019. Now she is back in atrial flutter. She needs cardioversion but will initiate antiarrhythmic therapy with flecainide 100 mg daily and continue metoprolol 150 mg daily. The benefit and potential risks were discussed with the patient who is familiar with this procedure from previous experience. 2. Sleep apnea, unable to utilize CPAP machine. She utilizes oxygen at night. 3. Systemic lupus, in remission, on medical therapy. Managed by the [facility] 4. Morbid obesity, patient is trying to lose weight with lifestyle modification and seems to be motivated. 5. Hyperlipidemia, on medical therapy, currently on 40 mg daily of atorvastatin. Lipid profile has been monitored closely and has been under control. 6. High-risk medication, on Eliquis no bleeding complications 7. Hypertension, on medical therapy, currently on the soft side, will discontinue spironolactone for now. 8. History of hypercalcemia caused by hyperparathyroidism status post parathyroidectomy last year at the [facility] with success 10. Ascending aortic aneurysm measured 4.6 cm from echocardiogram September 2021, follow-up echocardiogram in 2021 measured only 3.8 cm Yuriy Conway MD, [facility] Review of Systems All other systems reviewed and are negative. Visit Vitals BP 98/70 (BP Location: Left arm, Patient Position: Sitting) Pulse (!) 119 Ht 1.702 m (5' 7 ) Wt 118 kg (260 lb) BMI 40.72 kg/m Smoking Status Never BSA 2.36 m EKG done in office today Objective Physical Exam Constitutional: Appearance: Normal appearance. She is normal weight. HENT: Nose: Nose normal. Neck: Vascular: No carotid bruit. Cardiovascular: Rate and Rhythm: Normal rate. Rhythm irregular. Pulses: Normal pulses. Heart sounds: Normal heart sounds. Pulmonary: Effort: Pulmonary effort is normal. Abdominal: General: Bowel sounds are normal. Palpations: Abdomen is soft. Genitourinary: Rectum: Normal. Musculoskeletal: General: Normal range of motion. Cervical back: Normal range of motion. Right lower leg: No edema. Left lower leg: No edema. Skin: General: Skin is warm and dry. Neurological: General: No focal deficit present. Mental Status: She is alert. Psychiatric: Mood and Affect: Mood normal. Behavior: Behavior normal. Thought Content: Thought content normal. Judgment: Judgment normal. Current Medications Current Outpatient Medications: alendronate (Fosamax) 70 mg tablet, Take 1 tablet (70 mg) by mouth every 7 days. Take in the morning with a full glass of water, on an empty stomach, and do not take anything else by mouth or lie down for the next 30 min., Disp: , Rfl: atorvastatin (Lipitor) 40 mg tablet, Take 1 tablet by mouth once daily, Disp: 90 tablet, Rfl: 3 B complex-vitamin C-folic acid (Dialyvite) 100-1 mg tablet, Take 1 tablet by mouth once daily., Disp: , Rfl: belimumab (Benlysta) 120 mg recon soln IV injection, Infuse into a venous catheter., Disp: , Rfl: Bifidobacterium infantis (ALIGN ORAL), Take 1 tablet by mouth once daily., Disp: , Rfl: busPIRone (Buspar) 10 mg tablet, Take 1 tablet (10 mg) by mouth once daily at bedtime., Disp: , Rfl: celecoxib (CeleBREX) 200 mg capsule, Take 1 capsule (200 mg) by mouth once daily., Disp: , Rfl: cholecalciferol (Vitamin D-3) 50 mcg (2,000 unit) capsule, Take 1 capsule (50 mcg) by mouth once daily., Disp: , Rfl: colestipol (Colestid) 1 gram tablet, Take 2 tablets (2 g) by mouth 2 times a day. Take at least 1 hour after or 4 hours before other medications., Disp: , Rfl: Eliquis 5 mg tablet, Take 1 tablet by mouth twice daily, Disp: 60 tablet, Rfl: 0 ferrous sulfate 325 (65 Fe) MG tablet, Take 1 tablet by mouth once daily with breakfast., Disp: , Rfl: furosemide (Lasix) 40 mg tablet, Take 1 tablet (40 mg) by mouth once daily., Disp: , Rfl: hydroxychloroquine (Plaquenil) 200 mg tablet, Take 1 tablet (200 mg) by mouth 2 times a day., Disp: , Rfl: levothyroxine (Synthroid, Levoxyl) 50 mcg tablet, Take 1 tablet (50 mcg) by mouth once daily in the morning. Take before meals., Disp: , Rfl: metoprolol succinate XL (Toprol-XL) 50 mg 24 hr tablet, Take 1 tablet (50 mg) by mouth once daily. Take one tablet by mouth every morning and 2 tablets by mouth every evening, Disp: , Rfl: multivitamin with minerals iron-free (Centrum Silver), Take 1 tablet by mouth once daily., Disp: , Rfl: pantoprazole (ProtoNix) 40 mg EC tablet, Take 1 tablet (40 mg) by mouth once daily in the morning. Take before meals. Do not crush, chew, or split., Disp: , Rfl: sucralfate (Carafate) 100 mg/mL suspension, Take 10 mL (1 g) by mouth 4 times a day., Disp: , Rfl: venlafaxine XR (Effexor XR) 150 mg 24 hr capsule, Take 1 capsule (150 mg) by mouth once daily., Disp: , Rfl: cholestyramine (Questran) 4 gram packet, Take 1 packet (4 g) by mouth 3 times a day with meals., Disp: , Rfl: flecainide (Tambocor) 100 mg tablet, Take 1 tablet (100 mg) by mouth 2 times a day., Disp: 180 tablet, Rfl: 3 mesalamine (Lialda) 1.2 gram EC tablet, Take 1.2 mg by mouth 4 times a day., Disp: , Rfl: Assessment/Plan 1. Atypical atrial flutter (CMS/HCC) 2. Paroxysmal atrial fibrillation (CMS/HCC) Follow Up In Cardiology ECG 12 Lead Cardioversion External flecainide (Tambocor) 100 mg tablet 3. Essential hypertension 4. Obstructive sleep apnea 5. Never smoked any substance 6. Other forms of systemic lupus erythematosus, unspecified organ involvement status (CMS/HCC) 7. Morbid obesity (CMS/HCC) 8. High risk medication use 9. Dyslipidemia Scribe Attestation By signing my name below, Mara Sharma LPN , [employer] attest that this documentation has been prepared under the direction and in the presence of Yuriy Conway MD. documented in this encounter [facility] [place] Work Phone: 09-17-2023 Instructions Buster Clay MA - 09/17/2023 8:50 AM EST Please bring all medicines, vitamins, and herbal supplements with you when you come to the office. Prescriptions will not be filled unless you are compliant with your follow up appointments or have a follow up appointment scheduled as per instruction of your physician. Refills should be requested at the time of your visit. documented in this encounter [facility] [place] Work Phone: 09-01-2023 History of Present illness Narrative Subjective [...] Workman 09/01/23 1350 documented in this encounter [facility] [employer] 08-03-2023 Note HNO ID: [id number] Author: Angie See DPM Service: Podiatry Author [...] Urine Negative 04/22/2023 Nitrites Negative 04/22/2023 Specific [place], Ur 1.012 04/22/2023 Protein, Urine Negative 04/22/2023 [...] DATE: August 02, 2023 TIME: 7:33 PM [facility] [place] 07-20-2023 Miscellaneous Notes Spoke to patient and she is scheduled for bilateral cortisone injection at [facility] for 08/03/23 documented in this encounter [facility] 07-07-2023 Miscellaneous Notes [facility] requesting call back to schedule (surgery)with Dr. Cervantes. Left direct number to return call. [phone] documented in this encounter [facility] 07-02-2023 Note HNO ID: [id number] Author: Beverly Franco DPM Service: ? Author Type: Physician Type: Progress Notes Filed: 07/02/2023 12:08 PM Note Text: SERVICE DATE: July 02, 2023 PCP: Wojciech Treviño MD, DO Subjective Patient ID: Jesus is a 68 year old female. Patient presents today with complaint of pain in her left midfoot on the medial side which started several weeks ago while she is in [place] at the [employer] [facility] and on her feet an extensive [...] with uninfected necrosis SLE (systemic lupus erythematosus) ([facility]) Sleep apnea 07/29/2012 PAST SURGICAL HISTORY Procedure Laterality Date APPENDECTOMY CARPAL TUNNEL RIGHT WRIST surgical correction COLONOSCOPY 05/10/2019 [facility] COLONOSCOPY GEN ANES 07/23/2020 Dr. Reinoso/Diverticulosis/Hemorrhoids/ Ulcerative Colitis/Rpt in 2 yrs. COLONOSCOPY SCREENING 03/2023 EGD EUS 01/11/2020 [facility] LASIK Right prior to 1999 [...] mg by mo (more content not included)... [facility] [place] 07-02-2023 Note HNO ID: [id number] Author: Pinky Loya RT(R) Service: Radiology Author [...] RT Ale(R) July 02, 2023 10:27 AM [facility] [place] 07-02-2023 History of Present illness Narrative SERVICE DATE: July 02, 2023 PCP: Wojciech Treviño MD, DO Subjective Patient ID: Jesus is a 68 year old female. Patient presents today with complaint of pain in her left midfoot on the medial side which started several weeks ago while she is in [place] at the [employer] [facility] and on her feet an extensive [...] with uninfected necrosis SLE (systemic lupus erythematosus) ([facility]) Sleep apnea 07/29/2012 PAST SURGICAL HISTORY Procedure Laterality Date APPENDECTOMY CARPAL TUNNEL RIGHT WRIST surgical correction COLONOSCOPY 05/10/2019 [facility] COLONOSCOPY GEN ANES 07/23/2020 Dr. Reinoso/Diverticulosis/Hemorrhoids/ Ulcerative Colitis/Rpt in 2 yrs. COLONOSCOPY SCREENING 03/2023 EGD EUS 01/11/2020 [facility] LASIK Right prior to 1999 [...] every 4 hours as needed for pain. poaolca-gcdowauvy-ijwtiuu D3 500 mg-5 mcg (200 unit) per tablet Take 1 tablet by mouth three times daily. MV with Pph-Ndksasdz-Elsvsi (CENTRUM SILVER) 0.4 mg-300 mcg- 250 mcg [...] left X-Ray: Severe midfoot osteoarthritic changes with nfdt-jw-ugzh appearance, periarticular subchondral sclerotic and cystic changes [...] options conservative and surgical, prognosis, short and residential expectations, and benefit, and potential risks associated [...] Beverly Franco DPM documented in this encounter [facility] 07-01-2023 Note HNO ID: [id number] Author: Coco Guzman RN Service: ? Author [...] No New rash or open sores? No [facility] 07-01-2023 History of Present illness Narrative Since [...] open sores? No documented in this encounter [facility] 06-16-2023 Miscellaneous Notes Pharmacy escripts requesting the following refill: Requested Prescriptions Pending Prescriptions Disp Refills pantoprazole DR (PROTONIX) 40 mg tablet [Pharmacy Med Name: PANTOPRAZOLE SOD DR 40 MG TAB] 60 tablet 3 Sig: take 1 tablet by mouth twice a day Please review and advise. Bang Spears RN documented in this encounter [facility] 06-11-2023 Miscellaneous Notes Prescription sent to the pharmacy Horace Harrell PA-C Patient needs to have a dental procedure and needs an antibiotic. Patient states you are the last orthopedic surgeon she seen. Please send prescription to the [facility] in [facility]. patient would like to be notified when prescription has been sent in. Please advise documented in this encounter [facility] 05-21-2023 Note HNO ID: [id number] Author: Beverly Franco DPM Service: ? Author [...] TUNNEL RIGHT WRIST surgical correction COLONOSCOPY 05/10/2019 [facility] COLONOSCOPY GEN ANES 07/23/2020 Dr. Reinoso/Diverticulosis/Hemorrhoids/ Ulcerative Colitis/Rpt in 2 yrs. COLONOSCOPY SCREENING 03/2023 EGD EUS 01/11/2020 [facility] LASIK Right prior to 1999 [...] mg iron) tab (more content not included)... [facility] 04-17-2023 Miscellaneous Notes Pharmacy escripts requesting the following refill: Requested Prescriptions Pending Prescriptions Disp Refills colestipol (COLESTID) 1 gram tablet [Pharmacy Med Name: COLESTIPOL HCL 1 GM TABLET] 360 tablet 3 Sig: TAKE 2 TABLETS BY MOUTH TWICE A DAY Please review and advise. Bang Spears RN documented in this encounter [facility] 04-15-2023 History and physical note FOLLOW UP OFFICE VISIT REASON FOR VISIT: follow up UC HPI: Jesus Wolf is a 68 year old female who presents for follow up UC. After colonoscopy 2 weeks ago, she was in the ER several times with migraine headaches. She was in the [facility] on vacation. It is likely these [...] Abs Lymph 1.00 - 4.00 k/uL 2.04 [place]% % 11.0 Abs [place] <0.87 k/uL 0.92 (H) Eosin% % 3.1 [...] TUNNEL RIGHT WRIST surgical correction COLONOSCOPY 05/10/2019 [facility] COLONOSCOPY GEN ANES 07/23/2020 Dr. Reinoso/Diverticulosis/Hemorrhoids/ Ulcerative Colitis/Rpt in 2 yrs. EGD EUS 01/11/2020 [facility] LASIK Right prior to 1999 [...] every 4 hours as needed for pain. pxogsgw-zuwsikqdb-vxteauj D3 500 mg-5 mcg (200 unit) per tablet Take 1 tablet by mouth three times daily. MV with Daz-Epnsygef-Glgdty (CENTRUM SILVER) 0.4 mg-300 mcg- 250 mcg [...] No history of dysuria, frequency or incontinence MEDIA MONITOR: Negative for abnormal vaginal bleeding, abnormal vaginal [...] This note was partially generated using the Intent voice recognition system, there may be some incorrect words, spellings, and punctuation that were not noted in checking the note before saving documented in this encounter [facility] 04-15-2023 Instructions Dione Reinoso MD - 04/15/2023 9:13 AM EDT Continue mesalamine Continue canasa suppositories (can go down to as needed eventually) Continue protonix Continue colestipol documented in this encounter [facility] 04-10-2023 Note HNO ID: [id number] Author: Nadege Hawkins, DO Service: ? Author Type: Physician Type: Progress Notes Filed: 04/10/2023 9:51 AM Note Text: [facility] DEPARTMENT OF RHEUMATIC [...] characterized by LN. 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 Reinoso/Diverticulosis/Hemorrhoids/ Ulcerative Colitis/Rpt in 2 yrs. EGD EUS 01/11/2020 [facility] LASIK Right prior to 1999 MRI PANC/JEANIE WO/W IVCON 12/20/2019 [facility] PAST SURGICAL HISTORY OF 07/2013 bilateral foot procedure, [place] PAST SURGICAL HISTORY OF 2018 (more content not included)... [facility] 04-10-2023 History of Present illness Narrative Images from the original note were not included. [facility] DEPARTMENT OF RHEUMATIC [...] TUNNEL RIGHT WRIST surgical correction COLONOSCOPY 05/10/2019 [facility] COLONOSCOPY GEN ANES 07/23/2020 Dr. Reinoso/Diverticulosis/Hemorrhoids/ Ulcerative Colitis/Rpt in 2 yrs. EGD EUS 01/11/2020 [facility] LASIK Right prior to 1999 [...] 4 hours as needed for pain.^Disp: ^Rfl: kkgspow-vsetoxrka-kynvfvu D3 500 mg-5 mcg (200 unit) per tablet^Take 1 tablet by mouth three times daily.^Disp: ^Rfl: MV with Dyn-Vcsqmuwd-Qxlzue (CENTRUM SILVER) 0.4 mg-300 mcg- 250 mcg [...] D.O. Rheumatology Staff documented in this encounter [facility] 04-08-2023 Miscellaneous Notes Spoke to [...] suppository or enema? documented in this encounter [facility] 04-02-2023 History and physical note [...] TIME: 7:38 AM documented in this encounter [facility] 03-19-2023 Note HNO ID: [id number] Author: Chantelle Dumont RN Service: ? Author [...] No New rash or open sores? No [facility] 03-19-2023 History of Present illness Narrative Since [...] open sores? No documented in this encounter [facility] 03-18-2023 Miscellaneous Notes Spoke with pt; confirmed infusion for tomorrow. Denies s/sx of infection or antibiotics at this time. documented in this encounter [facility] 03-16-2023 Miscellaneous Notes Pharmacy escripts requesting the following refill: Requested Prescriptions Pending Prescriptions Disp Refills Mesalamine (LIALDA) 1.2 gram EC tablet [Pharmacy Med Name: MESALAMINE DR 1.2 GM TABLET] 360 tablet 1 Sig: take 4 tablets by mouth once daily Please review and advise. Bang Spears RN documented in this encounter [facility] 03-12-2023 Note HNO ID: [id number] Author: Beverly Franco DPM Service: ? Author [...] TUNNEL RIGHT WRIST surgical correction COLONOSCOPY 05/10/2019 [facility] COLONOSCOPY GEN ANES 07/23/2020 Dr. Reinoso/Diverticulosis/Hemorrhoids/ Ulcerative Colitis/Rpt in 2 yrs. EGD EUS 01/11/2020 [facility] LASIK Right prior to 1999 [...] 70 mg tab (more content not included)... [facility] 03-12-2023 History of Present illness Narrative SERVICE [...] with uninfected necrosis SLE (systemic lupus erythematosus) ([facility]) Sleep apnea 07/29/2012 PAST SURGICAL HISTORY Procedure Laterality Date APPENDECTOMY CARPAL TUNNEL RIGHT WRIST surgical correction COLONOSCOPY 05/10/2019 [facility] COLONOSCOPY GEN ANES 07/23/2020 Dr. Reinoso/Diverticulosis/Hemorrhoids/ Ulcerative Colitis/Rpt in 2 yrs. EGD EUS 01/11/2020 [facility] LASIK Right prior to 1999 [...] 4 hours as needed for pain.^Disp: ^Rfl: qupyeie-hnbnieazw-apzynnz D3 500 mg-5 mcg (200 unit) per tablet^Take 1 tablet by mouth three times daily.^Disp: ^Rfl: MV with Dvl-Sgfdydxl-Actitq (CENTRUM SILVER) 0.4 mg-300 mcg- 250 mcg [...] Medical image was obtained today and compared isps-ld-kvxy with previous image, findings and progress were discussed with patient. FOLLOW-UP: 10 weeks SIGNATURE: Beverly Franco DPM PATIENT NAME: Jesus Wolf DATE: March 12, 2023 TIME: 9:48 AM Bevrely Franco DPM documented in this encounter [facility] 2023 Miscellaneous Notes Spoke to patient offered 03/09 or 03/23 at [place] patient declined as she has commitments on those dates as well. Patient is on wait list Jesus Holguin Luciano is calling Dione Reinoso MD today with concern regarding Appointment. Patient hoping to be able to have this done in [place], and when the soonest that would be. When I tried rescheduled it denied me. Please advise and call patient. Thank you! Patient has been identified by name and birthdate. Person calling: self Call patient at: at home [phone] (home) [phone] (cell) Was an appointment scheduled: No Closing statement: Results or non-symptom based questions: Thank you for calling [facility], your call will be returned within the next business day. Sandra Irving Pss documented in this encounter [facility] 2023 Miscellaneous Notes Spoke to [...] Reinoso, please review the order and sign. Shear Helper, please call the patient to make arrangements. Thank you, Bang Spears RN Spoke to the patient. She stats she is Feeling ok Pt is having 6-8 stools a day, mostly soft diarrhea She states this is the same bowel habits from before, no change. No blood. No other symptoms. Dr. Reinoso, do you still want colonoscopy? Please advise. Thank you, Bang Regan, RN ----- Message from Dione Reinoso MD sent at 02/11/2023 11:33 AM EDT ----- Fcp still elevated, how is she feeling? May need to perform colonoscopy in the next 1-2 months documented in this encounter [facility] 02-16-2023 Miscellaneous Notes Most recent [...] Expires Ordered Last Rel. C3 COMPLEMENT BLD [[id number]] 11/20 Every 4 months 03/13/23 03/13/22 06/30/22 Auth. provider: Evelin Alicea MD Assoc. diagnoses: Membranous lupus nephritis syndrome (HCC), High risk medication use, Systemic lupus erythematosus, unspecified SLE type, unspecified organ involvement status (HCC) C4 COMPLEMENT BLD [[id number]] 11/20 Every 4 months 03/13/23 03/13/22 06/30/22 Auth. provider: Evelin Alicea MD Assoc. diagnoses: Membranous lupus nephritis syndrome (HCC), High risk medication use, Systemic lupus erythematosus, unspecified SLE type, unspecified organ involvement status (HCC) CBC + DIFF [SQCBCDIF] 11/20 Every 4 months 03/13/23 03/13/22 06/30/22 Auth. [...] day with food documented in this encounter [facility] 02-12-2023 Note HNO ID: [id number] Author: Beverly Franco DPM Service: ? Author [...] Vitamin D Deficiency Sle (Systemic Lupus Erythematosus) ([facility]) Fibromyalgia Sleep Apnea Encounter for Long-Term (Current) [...] with uninfected necrosis SLE (systemic lupus erythematosus) ([facility]) Sleep apnea 07/29/2012 PAST SURGICAL HISTORY Procedure Laterality Date APPENDECTOMY CARPAL TUNNEL RIGHT WRIST surgical correction COLONOSCOPY 05/10/2019 [facility] COLONOSCOPY GEN ANES 07/23/2020 Dr. Reinoso/Diverticulosis/Hemorrhoids/ Ulcerative Colitis/Rpt in 2 yrs. EGD EUS 01/11/2020 [facility] LASIK Right prior to 1999 MRI PANC/JEANIE WO/W IVCON 12/20/2019 [facility] PAST SURGICAL HISTORY OF 07/2013 bilateral foot procedure, [place] PAST SURGICAL HISTORY OF Ablation X2 TONSILLECTOMY [...] mouth twice daily. (more content not included)... [facility] 02-12-2023 History of Present illness Narrative SERVICE [...] Vitamin D Deficiency Sle (Systemic Lupus Erythematosus) ([facility]) Fibromyalgia Sleep Apnea Encounter for Long-Term (Current) [...] with uninfected necrosis SLE (systemic lupus erythematosus) ([facility]) Sleep apnea 07/29/2012 PAST SURGICAL HISTORY Procedure Laterality Date APPENDECTOMY CARPAL TUNNEL RIGHT WRIST surgical correction COLONOSCOPY 05/10/2019 [facility] COLONOSCOPY GEN ANES 07/23/2020 Dr. Reinoso/Diverticulosis/Hemorrhoids/ Ulcerative Colitis/Rpt in 2 yrs. EGD EUS 01/11/2020 [facility] LASIK Right prior to 1999 MRI PANC/JEANIE WO/W IVCON 12/20/2019 [facility] CYSTECTOMY PAST SURGICAL HISTORY OF 07/2013 bilateral foot procedure, [place] PAST SURGICAL HISTORY OF Ablation X2 TONSILLECTOMY [...] 4 hours as needed for pain.^Disp: ^Rfl: lbuqzcl-bkbmjevlk-bdupoby D3 500 mg-5 mcg (200 unit) per tablet^Take 1 tablet by mouth three times daily.^Disp: ^Rfl: MV with Whz-Qbvhzndp-Mjhqqf (CENTRUM SILVER) 0.4 mg-300 mcg- 250 mcg [...] etiology, anatomy, treatment options, prognosis, short and termite control technician expectations, and potential risks and complications. New [...] Beverly Franco DPM documented in this encounter [facility] 02-09-2023 Miscellaneous Notes Refill ordered. [...] BY MOUTH IN THE EVENING Hallie Young APRN.[employer] INS[employer] Dev 01/01/22 siddhartha Nov - none documented in this encounter [facility] 02-09-2023 Miscellaneous Notes Phoned pt and spoke with her. Dr. Painting has reviewed her labs and they are good. Dr. Painting did notice her creatinine had gone up a bit and asked that Jesus stays hydrated. Pt states she will. Sarai Menjivar RN documented in this encounter [facility] 02-04-2023 Note HNO ID: [id number] Author: Nadege Hawkins, DO Service: ? Author Type: Physician Type: Progress Notes Filed: 02/04/2023 4:07 PM Note Text: [facility] DEPARTMENT OF RHEUMATIC [...] TUNNEL RIGHT WRIST surgical correction COLONOSCOPY 05/10/2019 [facility] COLONOSCOPY GEN ANES 07/23/2020 Dr. Reinoso/Diverticulosis/Hemorrhoids/ Ulcerative Colitis/Rpt in 2 yrs. EGD EUS 01/11/2020 [facility] LASIK Right prior to 1999 MRI PANC/JEANIE WO/W IVCON 12/20/2019 [facility] CYSTECTOM[facility] PAST SURGICAL HISTORY OF 07/2013 bilateral foot procedure, [place] PAST SURGICAL HISTORY OF Ablation X2 TONSILLECTOMY HX FamHx: FAMILY HISTORY Problem Relation Age of Onset Alzheimer's Disease Fa (more content not included)... [facility] 02-04-2023 Instructions Nadege Hawkins, - 02/04/2023 2:00 PM EDT Stop Cellcept (mycophenolate) Blood work and urine today on the first floor Continue Plaquenil 2 tablets/daily I will see you back in 2 months for follow up. documented in this encounter [facility] 02-04-2023 History of Present illness Narrative Images from the original note were not included. [facility] DEPARTMENT OF RHEUMATIC [...] with CHF A. fib on Eliquis DX 1999 ulcerative colitis on mesalamine therapy Has pancreatitis [...] TUNNEL RIGHT WRIST surgical correction COLONOSCOPY 05/10/2019 [facility] COLONOSCOPY GEN ANES 07/23/2020 Dr. Reinoso/Diverticulosis/Hemorrhoids/ Ulcerative Colitis/Rpt in 2 yrs. EGD EUS 01/11/2020 [facility] LASIK Right prior to 1999 MRI PANC/JEANIE WO/W IVCON 12/20/2019 [facility] CYSTECTOMY PAST SURGICAL HISTORY OF 07/2013 bilateral foot procedure, [place] PAST SURGICAL HISTORY OF Ablation X2 TONSILLECTOMY [...] once daily.^Disp: 360 tablet^Rfl: 1 MV with Rph-Ojklbxcp-Ndiyqv (CENTRUM SILVER) 0.4 mg-300 mcg- 250 mcg [...] 4 hours as needed for pain.^Disp: ^Rfl: jdhnvxw-dxsakmvmj-mhseusn D3 500 mg-5 mcg (200 unit) per [...] 74 - 99 mg/dL Final Comment: The [place] Diabetes Association (ADA) provides guidance for cutoff [...] Standards of Medical Care in Diabetes 2016, [place] [employer]. Diabetes Care. 2016.39(Suppl 1). AST [...] Nadege Hawkins DO documented in this encounter [facility] 01-22-2023 Note HNO ID: [id number] Author: Beverly Franco DPM Service: ? Author Type: Physician Type: Progress Notes Filed: 01/22/2023 11:17 AM Note Text: SERVICE DATE: January 22, 2023 PCP: Wojciech Treviño MD, Subjective Patient ID: Jesus is a [id number] [...] TUNNEL RIGHT WRIST surgical correction COLONOSCOPY 05/10/2019 [facility] COLONOSCOPY GEN ANES 07/23/2020 Dr. Reinoso/Diverticulosis/Hemorrhoids/ Ulcerative Colitis/Rpt in 2 yrs. EGD EUS 01/11/2020 [facility] LASIK Right prior to 1999 [...] 4 hours as needed for pain.Disp: Rfl: yfwhfvq-mscngratn-njwyuhv D3 500 mg-5 mcg (200 unit) per tabl (more content not included)... [facility] 01-22-2023 History of Present illness Narrative Images [...] TUNNEL RIGHT WRIST surgical correction COLONOSCOPY 05/10/2019 [facility] COLONOSCOPY GEN ANES 07/23/2020 Dr. Reinoso/Diverticulosis/Hemorrhoids/ Ulcerative Colitis/Rpt in 2 yrs. EGD EUS 01/11/2020 [facility] LASIK Right prior to 1999 [...] 4 hours as needed for pain.^Disp: ^Rfl: jgjpbnl-xetpizlsa-dcoesuj D3 500 mg-5 mcg (200 unit) per tablet^Take 1 tablet by mouth three times daily.^Disp: ^Rfl: MV with Obl-Yuzojfjo-Wxdwru (CENTRUM SILVER) 0.4 mg-300 mcg- 250 mcg [...] Beverly Franco DPM documented in this encounter [facility] 01-13-2023 Miscellaneous Notes Pharmacy escripts requesting the following refill: Requested Prescriptions Pending Prescriptions Disp Refills colestipol (COLESTID) 1 gram tablet [Pharmacy Med Name: COLESTIPOL HCL 1 GM TABLET] 120 tablet 3 Sig: TAKE 2 TABLETS BY MOUTH TWICE A DAY Please review and advise. Bang Spears RN documented in this encounter [facility] 01-08-2023 Note HNO ID: [id number] Author: Selin Birmingham Service: ? Author Type: ? Type: Progress Notes Filed: 01/08/2023 3:00 PM Note Text: Dressing applied to right foot as directed by Dr. Franco. Modified wound healing shoe application and removal directions provided. Patient verbalized understanding of instruxtions. Selin Birmingham LPN [facility] 01-08-2023 Note HNO ID: [id number] Author: Beverly Franco DPM Service: ? Author [...] TUNNEL RIGHT WRIST surgical correction COLONOSCOPY 05/10/2019 [facility] COLONOSCOPY GEN ANES 07/23/2020 Dr. Reinoso/Diverticulosis/Hemorrhoids/ Ulcerative Colitis/Rpt in 2 yrs. EGD EUS 01/11/2020 [facility] LASIK Right prior to 1999 [...] by mouth or (more content not included)... [facility] 12-19-2022 Miscellaneous Notes Images from the original note were not included. Dione Reinoso MD You 53 minutes ago (2:29 PM) Lets do stool studies Dr. Reinoso, please review the orders and sign. Thank you, Bang Spears RN Pt is taking Colestipol BID. Pt on wait list for sooner apt. Please advise if any. Thank you, Bang Spears RN documented in this encounter [facility] 12-15-2022 Note HNO ID: [id number] Author: Coco Guzman RN Service: ? Author [...] No New rash or open sores? No [facility] 12-15-2022 History of Present illness Narrative Since [...] open sores? No documented in this encounter [facility] 12-12-2022 Miscellaneous Notes Patient returning call regarding the below message left. Advised of the below and Patient states she is confirming her appointment for 12/15/22 and she has no infections. Patient understood and no further questions. Call placed to patient with no answer. LMOM to call back and confirm or to log in to my chart. documented in this encounter [facility] 11-25-2022 Miscellaneous Notes Pharmacy escripts requesting the following refill: Requested Prescriptions Pending Prescriptions Disp Refills ferrous sulfate (IRON) 325 mg (65 mg iron) tablet 90 tablet 3 Sig: Take 1 tablet by mouth once daily. Please review and advise. Bang Spears RN documented in this encounter [facility] 10-29-2022 Miscellaneous Notes Pharmacy escripts requesting the following refill: Requested Prescriptions Pending Prescriptions Disp Refills pantoprazole DR (PROTONIX) 40 mg tablet 60 tablet 3 Sig: Take 1 tablet by mouth twice daily. Please review and advise. Bang Spears RN documented in this encounter [facility] 10-29-2022 Miscellaneous Notes Images from the original note were not included. Dione Reinoso MD You 1 hour ago (9:32 AM) Lets restart vanco with a long taper, she needs to keep us updated on how it is going Dr. Reinoso, please review the orders and sign. Thank you, Bang Spears RN Dr. Reinoso, please review updated [employer] message. If you agree with retesting, please sign order. Thank you, Bang Spears RN Patient calling to follow up to message documented in this encounter [facility] 10-24-2022 Miscellaneous Notes Spoke to patient and she is scheduled for bilataral injections at [facility] for this 10/27/22 under local. Per patient, she does not need a post-op visit. documented in this encounter [facility] 10-22-2022 Miscellaneous Notes [facility] pharmacy is also out of Colestipol. Pt called and found [facility] in [place]. Dr. Reinoso, please review the order and sign. Thank you, .me Patient calling again Please call into [facility] [place] Patient calling to follow up to message documented in this encounter [facility] 10-21-2022 Miscellaneous Notes Spoke to patient and let her know that I will call her to schedule the procedure Dr. Cervantes offered as soon as I receive the surgery information from him. In the meantime, I provided my direct number in surgery scheduling so she and I can keep in touch [phone]. documented in this encounter [facility] 10-17-2022 Miscellaneous Notes Pt states [facility] in [place] has colestipol Dr. Reinoso, please review the [...] Bang Spears RN documented in this encounter [facility] 10-16-2022 History of Present illness Narrative Images from the original note were not included. Osteoporosis and Metabolic Bone Disease Date of Service: 10/16/2022 Patient: Jesus Wolf Medical Record: [id number] Primary Care Physician: Wojciech Treviño MD, DO [...] use (Comment: Daily steroid uses from about [id number]) Previous use No rheumatoid arthritis Secondary osteoporosis [...] DATE OF EXAM: Mar 13 2022 3:21PM Laurie 0804 - BD DXA - AXIAL SKELETON -NB / PROCEDURE REASON: Asymptomatic postmenopausal status * * * * Physician Interpretation * * * * EXAMINATION: DXA BONE DENSITOMETRY BD DXA - AXIAL SKELETON -NB CLINICAL HISTORY: DIAGNOSTIC Asymptomatic postmenopausal status . DXA Model: Networked Organisms (S/N: [id number]) SITE SCANNED: Lumbar Spine, Left Hip, & [...] should take calcium, the recommended dose is 6676-4824 mg per day along with 800-1000 IU vitamin D (some patients may require higher doses of vitamin D). LIMITATIONS: - Degenerative changes in the spine may artificially increase bone mass and make the reading unreliable FOLLOW-UP: - 2-years cc. Dr. Dav[place] Management Adviser: findin Transcribe Date/Time: Mar 13 2022 3:34P [...] TUNNEL RIGHT WRIST surgical correction COLONOSCOPY 05/10/2019 [facility] COLONOSCOPY GEN ANES 07/23/2020 Dr. Reinoso/Diverticulosis/Hemorrhoids/ Ulcerative Colitis/Rpt in 2 yrs. EGD EUS 01/11/2020 [facility] LASIK Right prior to 1999 [...] - Calcium Replacement/Vitamin D Combinations Start End laashva-imdyrqpqt-nvhtrfw D3 500 mg-5 mcg (200 unit) per tablet 08/27/2022 Sig - Route: Take 1 tablet by mouth three times daily. - ORAL Class: OTC Vitamins - D Derivatives Start End Cholecalciferol, Vitamin D3, 2,000 unit cap Sig - Route: Take by mouth once daily. - ORAL Class: Historical Med Multivitamin and Mineral Combinations Start End MV with Fpi-Vnqteevj-Hpvpnv (CENTRUM SILVER) 0.4 mg-300 mcg- 250 mcg tab Sig - Route: Take 1 tablet by mouth once daily. - ORAL Class: Historical Med Minerals and Electrolytes - Calcium Replacement/Vitamin D Combinations Start End yuucubs-zbdbuxwot-enfklrx D3 500 mg-5 mcg (200 unit) per [...] needed (mouth or hand numbness or tingling). vircozc-lixmbswzy-rfvkwoi D3 500 mg-5 mcg (200 unit) per tablet Take 1 tablet by mouth three times daily. MV with Xdq-Nrwpdada-Khavuf (CENTRUM SILVER) 0.4 mg-300 mcg- 250 mcg [...] use (Comment: Daily steroid uses from about 0467-2329) Previous use No rheumatoid arthritis Secondary osteoporosis Malabsorption No alcohol use more than 3 units per day FRAX (WHO 10 Year Fracture Risk) Date of FRAX assessment: 05/12/22 Hip: 1.6% Major Osteoporotic: 10% Diagnoses: (M85.80) Osteopenia, unspecified location (primary encounter diagnosis) (E89.2) S/P parathyroidectomy (HCC) (Z79.83) [facility] (current) use of 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 Plan: Continue Fosamax. [...] routine health maintenance advised. Orders this visit: [facility] on 10/16/22 alendronate (FOSAMAX) 70 mg tablet Return in about 6 months (around 04/18/2023). I spent a total of 21 minutes on the date of the service which included preparing to see the patient, rlgb-iq-gjox patient care, completing clinical documentation, obtaining and/or reviewing separately obtained history, performing a medically appropriate examination, and counseling and educating the patient/family/caregiver. ____ Julia Ann PA-C Date: October 16, 2022 documented in this encounter [facility] 10-01-2022 Miscellaneous Notes C Diff Toxin A/B - positive Pt dc on flagyl 500 mg TID x [address] Reinoso, per message below, please review the order and sign. Thank you, Bang Spears RN Images from the original note were not included. Dione Reinoso MD You Yesterday (2:12 PM) We should switch to vanco Some testing in CareEverywhere. Release sent. Awaiting full records report. Bang Spears RN Dr. Reinoso, mg fyartis. Thank you, Bang Spears RN documented in this encounter [facility] 09-24-2022 Miscellaneous Notes Spoke with [...] Contains abnormal data LIPID PANEL (EXTERNAL) Order: [id number] Component Ref Range & Units 12 d [...] - 5.0 2.6 documented in this encounter [facility] 09-22-2022 Miscellaneous Notes Pharmacy escripts requesting the following refill: Requested Prescriptions Pending Prescriptions Disp Refills Mesalamine (LIALDA) 1.2 gram EC tablet 360 tablet 1 Sig: Take 4 tablets by mouth once daily. Please review and advise. Bang Spears RN documented in this encounter [facility] 09-15-2022 Miscellaneous Notes Images from the original [...] Bryan Painting MD documented in this encounter [facility] 09-15-2022 History of Present illness [...] open sores? No documented in this encounter [facility] 09-12-2022 Miscellaneous Notes I spoke [...] any recent antibiotics. documented in this encounter [facility] 09-10-2022 Miscellaneous Notes Patient requesting the following refill: Requested Prescriptions Pending Prescriptions Disp Refills colestipol (COLESTID) 1 gram tablet 120 tablet 3 Sig: Take 2 tablets by mouth twice daily. Please review and advise. Bang Spears RN Jesus Wolf is calling in for a refill on her prescription of Colestipol 1gm - 2 tablets BID and would like it to go to [facility] pharmacy. documented in this encounter [facility] 09-08-2022 Miscellaneous Notes Pt calling [...] Sarai Menjivar RN documented in this encounter [facility] 08-26-2022 Miscellaneous Notes 08/25/22 Negative Covid Text indexed documented in this encounter [facility] 08-22-2022 Miscellaneous Notes Jesus has arranged for her covid test and will hand carry the results with her to surgery. She will also fax a copy for her record. Sarai Menjivar RN documented in this encounter [facility] 08-22-2022 Miscellaneous Notes Phoned and left Jesus a message to please call the office. We have not received a letter from her recycling assistant in regards to her Eliquis. We have left multiple messages and have spoken with Dr. Couch office but have not gotten a response. Sarai Menjivar RN documented in this encounter [facility] 08-21-2022 Miscellaneous Notes Phoned and [...] Sarai Menjivar RN documented in this encounter [facility] 07-31-2022 Instructions Mara Cortes APRN.[facility] - 07/31/2022 9:19 AM EST PATIENT PREOPERATIVE INSTRUCTIONS No ref. provider found has scheduled you for your procedure at this surgery center: [facility] [place] Scheduling Office: [phone] --[address] [place] [address]. Please read below carefully for your personalized [...] or other anticoagulants without consulting with your recycling assistant or prescribing physician. - Stop Vitamin E, [...] Procedures: - YOU MUST HAVE A RESPONSIBLE COMPENSATION/BENEFITS SPECIALIST TAKE YOU HOME. A DIE WELDER OR CIRCULAR SAWYER STONE CANNOT BE MADE A RESPONSIBLE COMPENSATION/BENEFITS SPECIALIST. - We recommend that a responsible person [...] call the Thursday before. Your surgeon s mainspring strip inspector will tell you what time to call the office. - If you have not reached the departmental mainspring strip inspector by 5 P.M., call [phone] after 5 P.M. the day before your surgery. Please be aware that emergency situations arise, which may delay or change your surgical time. If this happens, we will notify you as soon as possible and regret any inconvenience. If you already have an Advance Directive, please fax a copy to [phone] or email to for it to be [...] Mara Cortes APRN.JOHNATHAN documented in this encounter [facility] 07-31-2022 History and physical note [...] TUNNEL RIGHT WRIST surgical correction COLONOSCOPY 05/10/2019 [facility] COLONOSCOPY GEN ANES 07/23/2020 Dr. Reinoso/Diverticulosis/Hemorrhoids/ Ulcerative Colitis/Rpt in 2 yrs. EGD EUS 01/11/2020 [facility] LASIK Right prior to 1999 [...] Take one(1) tablet daily. Yes MV with Fdf-Wwiijwrm-Oflyof (CENTRUM SILVER) 0.4 mg-300 mcg- 250 mcg [...] fevers. Neuro: No history of TIA's, stroke, DRAFTER LANDSCAPE tumor, impaired sensorium, hemiplegia, paraplegia or quadraplegia. [...] +CHF on Aldactone no history of angina, CA, cardiac surgery or stents. Denies rest pain, gangrene or revascularization/amputation for PVD GI: Positive for GERD, PUD, ulcerative Colitits History of Pancreatitis : No history of dysuria, frequency or incontinence,, stones or chronic kidney disease, No difficulty urinating, nocturia > 1 time per night or hematuria MEDIA MONITOR: Negative for abnormal vaginal bleeding, abnormal vaginal [...] normal intervals, reviewed by myself., reviewed by recycling assistant. Impression CONCLUSIONS: - Technically difficult exam due [...] echocardiographic exam performed on 03/15/19. All in [facility] Assessment/Plan Essential hypertension Assessment: stable on medication [...] Initiated: Orders Placed This Encounter MV with Dkf-Bssvrmrf-Haijri (CENTRUM SILVER) 0.4 mg-300 mcg- 250 mcg tab Sig: Take 1 tablet by mouth once daily., Orders per surgeon Planned Anesthetic: General Instructions Given to Patient: Instructions located in the after visit summary. Patient given verbal and written preop instructions and voices comprehension and compliance. SIGNATURE: Mara Cortes APRN.JOHNATHAN PATIENT NAME: Jesus Wolf DATE: July 31, 2022 TIME: 8:51 AM documented in this encounter [facility] 07-23-2022 Miscellaneous Notes Last colon 09/12/2021 - pt is due in 2-3 years. Recall in. Bang Spears RN Per note patient was to repeat colonoscopy in 2 years. Patient is currently seeing Dr Blanton. Please have her place orders and assist with scheduling if appropriate. Emily Crawford LPN July 23, 2022 5:04 PM documented in this encounter [facility] 07-07-2022 History and physical note [...] Bryan Painting MD documented in this encounter [facility] 07-07-2022 History of Present illness [...] 1040/1416 PATIENT DISCHARGED TO: Ambulatory patient, left [place] department area. A Diagnostic radioactive procedure has taken place, with no further precautions necessary other than routine body substance precautions. More information regarding radiation safety can be found using this link: [email or web address] %[email or web address] SIGNATURE: RT Zaria(R) PATIENT NAME: Jesus Wolf DATE: July 07, 2022 TIME: 10:54 AM PAGER/CONTACT #: documented in this encounter [facility] 07-01-2022 Miscellaneous Notes 07/01/22: INTAKE COMPLETE Patient informed about MIBI. Scheduled on patient's behalf. ENDOCRINE SURGERY PATIENT WORKSHEET Initial Call Date: July 01, 2022 Reason for Consult/ Referral: Hyperparathyroid, Hypercalcemia PATIENT DEMOGRAPHICS Name: Jesus Wolf CCF#: [id number] : 1955 AGE: [age] year old Contact Numbers: Home: (home) Work: There is no work phone number on file. PATIENT PHYSICIAN INFORMATION Referring Doctor: Lemuel Bejarano Address: Phone: [employer]: same Address: Phone: PCP: Wojciech Treviño MD ([facility]) [address] [place] [address] PAST TREATMENT Office notes: SEE EPIC Medications: [...] 300.0 mg/24 hr 108.5 Imaging Reports: SEE [facility] CD of Images: SEE [facility] FNA: no FNA Slides: N/A Has the patient ever had thyroid or parathyroid surgery before: No Operative Reports: NONE AVAILABLE Pathology Reports: NONE AVAILABLE documented in this encounter [facility] 06-12-2022 History of Present illness [...] 2 hours due to previous reaction. Jania Oscar, RN documented in this encounter [facility] 06-11-2022 Instructions Lemuel Bejarano V, MD - 06/11/2022 3:06 PM EDT [phone]-- [facility] Bryan Cantrell documented in this encounter [facility] 06-11-2022 History of Present illness Narrative Reason for consultation: evaluation of primary hyperparathyroidism Referring Physician: Julia Peña [address] [id number] My final recommendations will be communicated back [...] TUNNEL RIGHT WRIST surgical correction COLONOSCOPY 05/10/2019 [facility] COLONOSCOPY GEN ANES 07/23/2020 Dr. Reinoso/Diverticulosis/Hemorrhoids/ Ulcerative Colitis/Rpt in 2 yrs. EGD EUS 01/11/2020 [facility] LASIK Right prior to 1999 [...] by chemiluminescent immunoassay. No components found for: FCP157 Calcium Date Value Ref Range Status 05/16/2021 [...] which included preparing to see the patient, sxac-iu-woss patient care, completing clinical documentation, obtaining and/or [...] Heat Intolerance?: Yes documented in this encounter [facility] 05-19-2022 Miscellaneous Notes Patient is scheduled for bilateral cortisone injections with fluoroscopic guidance with Dr. Cervantes on 07/21/22. She would like sooner if any cancellations, however, is not available 05/23 thru 06/08. No PACC or post-op appts needed for this procedure. documented in this encounter [facility] 05-15-2022 Miscellaneous Notes RX was approved on 05/15/22 and was sent to [facility]. Pt was notified. documented in this encounter [facility] 05-15-2022 Miscellaneous Notes Pt requesting refill son the following medication. Please file if appropriate. documented in this encounter [facility] 05-12-2022 Instructions Julia Peña PA-C [...] but you can sit down. Please call [phone] to schedule endocrinology appointment. documented in this encounter [facility] 05-12-2022 History of Present illness Narrative Images from the original note were not included. Osteoporosis and Metabolic Bone Disease Date of Service: 05/12/2022 Patient: Jesus Wolf Medical Record: [id number] Primary Care Physician: Wojciech Treviño MD, DO [...] use (Comment: Daily steroid uses from about 0667-4872) Previous use No rheumatoid arthritis Secondary osteoporosis [...] DIAGNOSTIC Asymptomatic postmenopausal status . DXA Model: Networked Organisms (S/N: [id number]) SITE SCANNED: Lumbar Spine, Left Hip, & [...] should take calcium, the recommended dose is 6895-6138 mg per day along with 800-1000 IU vitamin D (some patients may require higher doses of vitamin D). LIMITATIONS: - Degenerative changes in the spine may artificially increase bone mass and make the reading unreliable FOLLOW-UP: - 2-years cc. Dr. Hardin Farm Management Adviser: findin Transcribe Date/Time: Mar 13 2022 3:34P [...] Function Percentile 5 % - 7 % RAPID 3 [place] [...] TUNNEL RIGHT WRIST surgical correction COLONOSCOPY 05/10/2019 [facility] COLONOSCOPY GEN ANES 07/23/2020 Dr. Reinoso/Diverticulosis/Hemorrhoids/ Ulcerative Colitis/Rpt in 2 yrs. EGD EUS 01/11/2020 [facility] LASIK Right prior to 1999 [...] use (Comment: Daily steroid uses from about 0878-7184) Previous use No rheumatoid arthritis Secondary osteoporosis [...] routine health maintenance advised. Orders this visit: [facility] on 05/12/22 CONSULT TO ENDOCRINOLOGY alendronate (FOSAMAX) 70 mg tablet Return in about 6 months (around 11/09/2022). Medical Decision Making: Problems: Low: Stable chronic illness Data: Unique test result(s) reviewed: 3+ Risk: Moderate: Drug management Medical Decision Making Level: 4 - Moderate ____ Julia Peña PA-C Date: May 12, 2022 documented in this encounter [facility] 05-06-2022 Miscellaneous Notes MC message sent to patient r/t below request. documented in this encounter [facility] 05-06-2022 Miscellaneous Notes Patient phones requesting refills as follows: Last office visit: 04/03/2021 Next office visit: Visit date not found Requested Prescriptions Pending Prescriptions Disp Refills colestipol (COLESTID) 1 gram tablet 120 tablet 3 Sig: Take 2 tablets by mouth twice daily. Please review and advise. Barbie Gerard LPN Please file if appropriate documented in this encounter [facility] 04-18-2022 Instructions Julia Peña PA-C [...] to the lab. documented in this encounter [facility] 04-18-2022 History of Present illness Narrative Images from the original note were not included. Osteoporosis and Metabolic Bone Disease Date of Service: 04/18/2022 Patient: Jesus Wolf Medical Record: [id number] Primary Care Physician: Wojciech Treviño MD, DO [...] use (Comment: Daily steroid uses from about 4007-7055) Previous use No rheumatoid arthritis Secondary osteoporosis [...] Asymptomatic postmenopausal status . DXA Model: A50 Remedify (S/N: [id number]) SITE SCANNED: Lumbar Spine, Left Hip, & [...] should take calcium, the recommended dose is 9753-9772 mg per day along with 800-1000 IU vitamin D (some patients may require higher doses of vitamin D). LIMITATIONS: - Degenerative changes in the spine may artificially increase bone mass and make the reading unreliable FOLLOW-UP: - 2-years cc. Dr. Hardin Farm Management Adviser: findin Transcribe Date/Time: Mar 13 2022 3:34P [...] intervertebral disk HTN (hypertension) Hyperlipemia Kidney disease MNOI (obstructive sleep apnea) no longer using CPAP since 60 lb weight loss Other acute pancreatitis with uninfected necrosis SLE (systemic lupus erythematosus) (HCC) Sleep apnea 07/29/2012 Past Surgical History PAST SURGICAL HISTORY Procedure Laterality Date APPENDECTOMY CARPAL TUNNEL RIGHT WRIST surgical correction COLONOSCOPY 05/10/2019 [facility] COLONOSCOPY GEN ANES 07/23/2020 Dr. Reinoso/Diverticulosis/Hemorrhoids/ Ulcerative Colitis/Rpt in 2 yrs. EGD EUS 01/11/2020 [facility] LASIK Right prior to 1999 [...] use (Comment: Daily steroid uses from about 2897-9981) Previous use No rheumatoid arthritis Secondary osteoporosis [...] April 18, 2022 documented in this encounter [facility] 03-13-2022 History of Present illness Narrative Patient has been identified by name and date of . Scanner Atlas Local [id number] Sites Scanned: Lumbar spine, Left hip, left forearm RT Evon(R) Radiology Service Progress Note PATIENT NAME: Jesus [...] 2022 2:59 PM documented in this encounter [facility] 03-13-2022 History of Present illness Narrative Patient arrives ambulatory for receipt of COVID-19 Monoclonal Antibodies for pre-exposure prophylaxis. Patient is identified by name and date of Previous [facility] Administrations (last [id number] hours) Showing orders from other encounters Date/Time Action Medication Dose 03/13/22 1258 Given cilgavimab 300 mg intramuscular injection (EVUSHELD) 300 mg 03/13/22 1258 Given tixagevimab 300 mg intramuscular injection (EVUSHELD) 300 mg Patient is receiving Evusheld (tixagevimab 300 mg/cilgevimab 300 mg) IM COVID 19 Result FROG CATCHER (no units) Date Value 03/13/2022 Negative Confirmed [...] Vitals are stable. documented in this encounter [facility] 03-13-2022 History of Present illness [...] Keira Frias RN documented in this encounter [facility] 03-13-2022 Instructions Evelin Alicea MD [...] usual activities immediately. documented in this encounter [facility] 03-13-2022 History of Present illness [...] Vitamin D Deficiency Sle (Systemic Lupus Erythematosus) ([facility]) Fibromyalgia Sleep Apnea Encounter for Long-Term (Current) [...] with uninfected necrosis SLE (systemic lupus erythematosus) ([facility]) Sleep apnea 07/29/2012 FAMILY HISTORY Problem Relation [...] in remission has been on CellCept since 2011 and with taper since 2019 without any flare she is also on Benlysta and Plaquenil ; giving her recurrent infection and recent C. difficile I will cut down her CellCept to 500 mg daily for now may consider stopping it in 6 months if she remains to be stable. Continue Benlysta and Plaquenil eye exam is normal . Also discussed Dora and highly recommended. We will set up appointment with cardiology. Need to repeat her bone density. Office Visit on 03/13/22 DXA-AXIAL SKELETON C3 COMPLEMENT BLD C4 COMPLEMENT BLD CBC + DIFF COMP METABOLIC PANEL SED RATE WESTERGREN URINALYSIS, WITH MICROSCOPIC C-REACTIVE PROTEIN (CRP) Evelin Hardin MD documented in this encounter [facility] 03-12-2022 Miscellaneous Notes Patient sent a MyChart message she will not be taking the Evusheld injection this appointment. Liliane García RN documented in this encounter [facility] 03-06-[address] Vazquez RN [...] serious illness Are taking any medications (prescription, tftg-iqv-hllwfcz, vitamins, or herbal products) How will I [...] of EVUSHELD for ongoing protection. Viruses can exchange consultant time (mutate) and develop into a slightly [...] up-to-date with the latest information by visiting [email or web address] or by scanning the QR code, below: [...] or prevention of COVID-19 go to https://www.fda.gov/emergency-prep qptaaclt-cbs-vhicfqxt/zpc-pwsgh-lp wdhikyff-ixu-qqnotu-framework/avi wjdwf-bzh-ijotjmxbwehbs. It is your choice to receive or [...] go away. Report side effects to FDA MedWatch at www.fda.gov/medwatch or call 0-865-KEW-6237 or call atokore at . Additional Information If you have questions, visit the website or call the telephone number provided below. To access the most recent EVUSHELD Fact Sheets, please scan the QR code provided below. Website Telephone number [email or web address] How can I learn more about COVID-19? Ask your healthcare provider. Visit https://www.cdc.gov/COVID19 Contact your local or state public health department. What is an Emergency Use Authorization? The [place] FDA has made EVUSHELD (tixagevimab co-packaged with cilgavimab) available under an emergency access mechanism called an Emergency Use Authorization EUA. The EUA is supported by a [place] of Health and Human Service (HHS) declaration [...] be used under the EUA). Distributed by: [employer], [place], [place] Manufactured by: [employer], [address] [facility] [facility] [facility], [facility], [facility] [address], [place] [facility] [employer] 2020. All rights reserved. documented in this encounter [facility] 03-06-2022 Miscellaneous Notes Evusheld (tixagevimab/cilgavimab) Eligibility and Patient Discussion [facility] Formulary Restriction Criteria: Outpatient adults and pediatrics 12 years and older and > 40 kg with ALL of the following: [x] COVID test scheduled: Yes Date: 03/07/22, type of test:Home antigen [x] Patient has not been exposed to a SARS-COV-2 positive individual ([facility] information on COVID exposure link) [x] Patient [...] 2022 9:33 AM documented in this encounter [facility] 02-24-2022 Miscellaneous Notes Spoke with patient regarding positive C. difficile toxin by PCR. Have ordered vancomycin p.o. 4 times daily x 10 days to her local pharmacy. Patient verbalized understanding all questions answered. Dione Reinoso MD, MPH Gastroenterology and Hepatology documented in this encounter [facility] 02-24-2022 Miscellaneous Notes Most recent Rheumatology visit: 12/09/2021 (with Cuca Guthrie) Upcoming Rheumatology Appointments - Next 365 Days Visit Type Date Time Department [facility] 03/13/2022 11:30 AM [facility] A50 Last Ophthalmology Check for Plaquenil [...] [SQCBC] 09/13/22 09/13/21 Auth. provider: Keyanna Carter APRN.[employer]. diagnoses: Chronic diastolic congestive heart failure (HCC), Paroxysmal atrial fibrillation (HCC), Essential hypertension Pending Prescriptions Disp Refills HYDROXYCHLOROQUINE 200 MG TABLET 180 tablet 2 Sig: take 1 tablet by mouth twice a day with food NIKITA: No Court Vazquez RN documented in this encounter [facility] 02-21-2022 Miscellaneous Notes Spoke with [...] Gastroenterology and Hepatology documented in this encounter [facility] 02-20-2022 Miscellaneous Notes Pt called back. Please see 02/14/22 phone encounter. documented in this encounter [facility] 2022 Miscellaneous Notes Please see other phone encounter that was sent by Pt. documented in this encounter [facility] 02-09-2022 Discharge summary Note Date/Time February 09, 2022 11:55am [facility] [address] [place] [address] Discharge Summary Signed Patient: Jesus Wolf MR#: [id number] : 1955 Acct:[id number] Age/Sex: 66 / F Adm Date: 2 Loc: 3T Room: [address] [place] [address]: Hussain Cat MD Copies to: [...] Plan Discharge Plan Patient Disposition: Home Health [facility] Activity: No Activity Restriction [...] Patient Ordered By: Hussain Cat Follow Up: Wojicech Treviño DO [Primary Care Provider] - (Call office on Thursday to schedulefollow-up with your Primary Care Provider in 3-5 days. ) Rachelle Frazier DO [Courtesy/Consulting Physician] - (Neurology to arrange outpatient follow-up. ) Documented By: Hussain Cat MD 2 1151 Signed By: <Electronically signed by Hussain Cat MD> 02/09/22 1155 [facility] Work Phone: 1(672) 418-424706-25-2022 Progress note Author Hussain Cat [facility] February 08, 2022 6:09pm Note Date/Time February 08, 2022 5:53 pm [facility] [address] [place] [address] Hospitalist Progress Note Signed Patient: Jesus Wolf MR#: [id number] : 1955 Acct:[id number] Age/Sex: 66 / F Adm Date: 2 Loc: Room: [address] [place] [address] Type : ADM INOo Attending Dr: Hussain [...] 02/08/22 12:00 02/08/22 12:00 02/08/22 12:00 02/08/22 12:00 02/08/22 12:00 Narrative: Constitutional: Elderly WF, resting in [...] Dose Route Start Last Admin Trade Name Jimenez PRN Reason Stop Dose Admin Acetaminophen 650 [...] 02/08/22 10:17 Ferrous Sulfate 324 Mg Tablet.Dr PO 02/08/23 08:59 324 mg DAILY RUBEN Administration [...] 02/07/22 22:00 02/08/22 17:49 Mesalamine 1.2 Gm Tablet. PO 02/07/23 21:59 1.2 gm QID RUBEN Administration Metoprolol Succinate 50 mg 02/07/22 21:00 02/08/22 10:17 Metoprolol Succinate 50 Mg Tab.Er.24h PO 02/07/23 20:59 50 mg BID RUBEN Administration Mycophenolate Mofetil 1,000 mg 02/07/22 22:00 02/07/22 21:51 Mycophenolate Mofetil 250 Mg Capsule PO 02/07/23 21:59 1,000 mg HS RUBEN Administration Omeprazole 20 mg 02/08/22 09:00 02/08/22 10:17 Omeprazole 20 Mg Capsule. PO 02/08/23 08:59 20 mg DAILY RUBEN Administration [...] <Electronically signed by Hussain Cat MD> 02/08/22 1046 [facility] Work Phone: 1(106) 363-721906-25-2022 Consult note Author Rachelle Frazier [facility] February 08, 2022 1:25pm Note Date/Time February 08, 2022 11:5 6am [facility] [address] [place] [address] Neurology Consult Note Signed Patient: Jesus Wolf MR#: [id number] : 1955 Acct:[id number] Age/Sex: 66 / F Adm Date: 2 Loc: Room: [address] [place] [address] Type : ADM INOo Attending Dr: Hussain Cat MD Copies to: DO Hussain Helms MD Nicole J D[facility],~ HPI Consult Date: 02/08/22 Chemical Engineering Teacher: Rachelle Frazier DO Reason for consult: AMS [...] mg PO BID 04/03/19 [History Confirmed 02/07/22] wbdiiweq-ceq-texqn acid 0.4 mg-lycopene 300 mcg-lutein 250 mcg [...] of dysmetria with good rapid alternating movements fhdbou-fc-grcm Tone is physiologic Sensation was intact to [...] Obesity, unspecified Status: Acute Documented By: Rachelle Farzier DO 02/08/22 1155 Signed By: <Electronically signed by DO Rachelle Frazier> 02/08/22 1325 [facility] Work Phone: 1(472) 481-698906-25-2022 History and physical note Author Hussain Cat [facility] February 07, 2022 11:02pm Note Date/Time February 07, 2022 10:2 9pm [facility] [address] [place] [address] Hospitalist H&P Signed Patient: Jesus Wolf MR#: [id number] : 1955 Acct:[id number] Age/Sex: 66 / F Adm Date: 2 Loc: Room: [address] [place] [address] Type : ADM IN Attending Dr: Hussain Cat MD Copies to: Wojciech Treviño,DO Hussain Cat MD~ HPI DATE OF EXAMINATION: 02/07/22 CHIEF COMPLAINT: Altered mental status HISTORY OF PRESENT ILLNESS: Ms. Wolf is a 66-year-old female with PMH of multiple medical comorbidities including SLE, diastolic CHF, MONI, HTN, HLD, paroxysmal A. fib, ulcerative colitis, morbid obesity, ascending thoracic aortic aneurysm, [facility]. [...] mg PO BID 04/03/19 [History Confirmed 02/07/22] cxmughsf-zzh-hbikw acid 0.4 mg-lycopene 300 mcg-lutein 250 mcg [...] % (Auto) 18.9 % (.) 02/07/22 14:23 [place] % (Auto) 12.2 % (.) 02/07/22 14:23 Eos % (Auto) 1.8 % (.) 02/07/22 14:23 Baso % (Auto) 0.5 % (.) 02/07/22 14:23 Neut # (Auto) 7.5 x10E3/uL (1.8-7.7) 02/07/22 14:23 Lymph # (Auto) 2.1 x10E3/uL (1.00-4.8) 02/07/22 14:23 [place] # (Auto) 1.4 x10E3/uL (0.0-0.8) H 02/07/22 [...] pH 5.0 (5.0-9.0) 02/07/22 16:29 Ur Specific [place] 1.049 (1.001-1.030) H 02/07/22 16:29 Urine Protein [...] Full code. Documented By: Hussain Cat MD [id number] Signed By: <Electronically signed by Hussain Cat MD> 02/07/22 2304 [facility] Work Phone: 1(889) 491-974306-22-2022 Miscellaneous Notes* Telephone Encounter - Bang Spears RN - 02/05/2022 1:27 PM EDT Pt's daughter, Lesia, has been notified multiple times by the team recently and up to date on POC. Please review her chart. Bang Spears RN documented in this encounterAden[facility]06-[facility] Miscellaneous Notes* Telephone Encounter - Irene Sahu PA-C - 01/28/2022 10:27 AM EDT Prescription refill approved on January 28, 2022 and routed to pharmacy to be filled Irene Sahu PA-C documented in this encounterAdena [facility]06-09-2022 Miscellaneous Notes* Telephone Encounter - Jesus Moon MA - 01/23/2022 11:19 AM EDT Patient phones requesting refills as follows: Pending Prescriptions Disp Refills PANTOPRAZOLE 40 MG TABLET,DELAYED RELEASE 60 tablet 3 Sig: Take 1 tablet by mouth twice daily. NIKITA: No Please review and advise. Jesus Moon MA documented in this encounterAdena [facility]05-16-2022 Miscellaneous Notes* Telephone Encounter - Anel Quinteros LPN - 12/30/2021 11:05 AM EDT Pt requesting refills on the following medication. Please file if appropriate. documented in this encounterAdena [facility]ike [facility] Center04-25-2022 History of Present illness Narrative* JOSEPH Garcia - 12/09/2021 2:30 PM EDT Images from the original note were not included. Rheumatology Outpatient [facility] [place] Patient To [place] Date of Service: 12/09/2021 Patient: Jesus Wolf Medical Record: [id number] Primary Care Physician: Wojciech Treviño MD Last [...] in September with Dr. Denis Bill at [facility]. Ulcerative colitis doing well but she did have stomach ulcers in October. She also discovered that she had an aortic aneurysm that is 4.7 Current Medications. She is establishing with a new recycling assistant soon. She does not follow with nephrology. [...] TUNNEL RIGHT WRIST surgical correction COLONOSCOPY 05/10/2019 [facility] COLONOSCOPY GEN ANES 07/23/2020 Dr. Reinoso/Diverticulosis/Hemorrhoids/ Ulcerative Colitis/Rpt in 2 yrs. EGD EUS 01/11/2020 [facility] LASIK Right prior to 1999 [...] 1 encounters. PROMIS Assessments PROMIS Assessments 10/02/2020 11/12/2021 11/13/2021 Physical Health Percentile - - 7 % [...] ANTIBODY W/CONFIRMATION <30 IU/mL - <12 <12 METER CHANGES RECORDS CLERK ANTIBODY <1.0 AI - - - SSA ANTIBODY <1.0 AI - - - SSB ANTIBODY <1.0 AI - - - NALINI 1 ANTIBODY <1.0 AI - - - RIBOSOMAL METER CHANGES RECORDS CLERK <1.0 AI - - - SM ANTIBODY [...] needs to be updated Follow-up with Dr. Hardin is schedule for February JOSEPH Garcia Rheumatology Date: December 07, 2021 I spent a total of 45 minutes on the date of the service which included preparing to see the patient, ajur-ij-fpak patient care, completing clinical documentation, obtaining and/or reviewing separately obtained history, performing a medically appropriate examination, counseling and educating the pat ient/family/caregiver and ordering medications, tests, or procedures. Medical Decision Making: Problems: Low: Stable chronic illness Risk: Moderate: Moderate risk from testing/treatment Medical Decision Making Level: 3 - Low documented in this encounterAdena [facility] Center04-25-2022 History of Present illness Narrative* [...] HOURS FOR THIS PT. documented in this encounterAdena [facility]ike [facility] Center04-04-2022 Miscellaneous Notes* Telephone Encounter - Jesus Moon MA - 11/18/2021 10:03 AM EDT , Medication pended. Please file if appropriate. Thanks documented in this encounterAdena Pike [facility] Center01-27-2022 History and physical note * [...] TIME: 7:39 AM PAGER: documented in this encounterAdena Pike [facility] Center05-07-2021 NoteHNO ID: [id number] Author: Helene Vaughan PA-C Service: ? Author Type: Physician Truck Engine Technician Type: Progress Notes Filed: 12/21/2020 9:32 AM [...] 1355 -- 12/18/20 1400 graduated compression stockings ([place] 12/18/20 1400 graduated compression stockings [place] 12/18/20 1400 activity - [place] 12/18/20 1400 activity [place] 12/18/20 1400 activity - [place] VTE Prophylaxis: VTE prophylaxis appropriate POST OPERATIVE COMPLICATIONS: Complicated by: uneventful/none SIGNATURE: Helene Vaughan PA-C PATIENT NAME: Jesus Wolf DATE: December 21, 2020 TIME: 9:30 AM ETX#[id number] NoteHNO ID: [id number] Author: Hans Beaulieu APRN.CNP Service: Anesthesiology Author Type: Nurse Practitioner Type: Procedures Filed: 12/20/2020 8:02 PM Note Text: BEDSIDE PROCEDURE NOTE PERIPHERAL IV Date/Start Time: 12/20/2020 8:01 PM Performed by: Hans Beaulieu APRN.CNP Authorized by: Hans Beaulieu APRN.CNP The risks, benefits and alternatives of the procedure were reviewed with the patient/patient vaccine customer representative. The patient/patient vaccine customer representative agreed to proceed. Informed Consent [place] Protocol Pre-Procedure Details: Personnel directly involved with [...] None Specimens Sent: None SIGNATURE: Hans Beaulieu APRN.CNP PATIENT NAME: Jesus Wolf DATE: December 20, 2020 TIME: 8:01 [facility]05-06-2021 NoteHNO ID: [id number] Author: Petra Ovalle APRN.CNP Service: Hospital Medicine Author Type: Nurse Practitioner Type: Plan of Care Filed: 12/20/2020 2:15 PM Note Text: Patient drowsy per RN report. Changed to tramadol for pain control. Pain not controlled on 25mg tramadol so dose increased to 50mg q6h. Ambulating with PT and more awake. Petra Ovalle, MSN, [facility] [id number] [id number] NoteHNO ID: [id number] Author: Marleni Hodges APRN.CNP Service: Orthopaedic Surgery Author Type: Nurse Practitioner [...] 1355 -- 12/18/20 1400 graduated compression stockings ([place]) 12/18/20 1400 graduated compression stockings [place]) 12/18/20 1400 activity - mobilize patient ([place]) 12/18/20 1400 activity - mobilize patient [place]) 12/18/20 1400 activity - mobilize patient ([place]) VTE Prophylaxis: VTE prophylaxis appropriate POST OPERATIVE COMPLICATIONS: Complicated by: uneventful/none SIGNATURE: Marleni Hodges, MSN, SULKY DRIVER, TONGUE AND GROOVE MACHINE OPERATOR-C PATIENT NAME: Jesus Wolf DATE: December 20, 2020 TIME: 9:59 AM PAGER: [phone] History of Past illness Narrative* Problem Noted Date Resolved Date Primary osteoarthritis of right hip 12/18/2020 12/19/2020 Osteoarthritis of both feet 04/14/201803/17 Overview: Added automatically from request for surgery [id number] Osteoarthritis of ankle or foot 10/14/2017 04/02/2020 Overview: Added automatically from request for surgery [id number] Synovitis 10/14/2017 04/02/2020 Overview: Added automatically from request for surgery [id number] Osteoarthrosis, localized, secondary, ankle or f oot 08/07/2015 04/02/2020 documented as of this encounter (statuses as of 11/18/2021) [facility] of Past illness Narrative* Problem Noted Date Resolved Date Primary osteoarthritis of right hip 12/18/2020 12/19/2020 Osteoarthritis of both feet 04/14/201803/17 Overview: Added automatically from request for surgery [id number] Osteoarthritis of ankle or foot 10/14/2017 04/02/2020 Overview: Added automatically from request for surgery [id number] Synovitis 10/14/2017 04/02/2020 Overview: Added automatically from request for surgery [id number] Osteoarthrosis, localized, secondary, ankle or f oot 08/07/2015 04/02/2020 documented as of this encounter (statuses as of 12/09/2021) [facility] of Past illness Narrative* Problem Noted Date Resolved Date Primary osteoarthritis of right hip 12/18/2020 12/19/2020 Osteoarthritis of both feet 04/14/201803/17 Overview: Added automatically from request for surgery [id number] Osteoarthritis of ankle or foot 10/14/2017 04/02/2020 Overview: Added automatically from request for surgery [id number] Synovitis 10/14/2017 04/02/2020 Overview: Added automatically from request for surgery [id number] Osteoarthrosis, localized, secondary, ankle or f oot 08/07/2015 04/02/2020 documented as of this encounter (statuses as of 12/09/2021) [facility] of Past illness Narrative* Problem Noted Date Resolved Date Primary osteoarthritis of right hip 12/18/2020 12/19/2020 Osteoarthritis of both feet 04/14/201803/17 Overview: Added automatically from request for surgery [id number] Osteoarthritis of ankle or foot 10/14/2017 04/02/2020 Overview: Added automatically from request for surgery [id number] Synovitis 10/14/2017 04/02/2020 Overview: Added automatically from request for surgery [id number] Osteoarthrosis, localized, secondary, ankle or f oot 08/07/2015 04/02/2020 documented as of this encounter (statuses as of 12/30/2021) [facility] illness Narrative* Problem Noted Date Resolved Date Primary osteoarthritis of right hip 12/18/2020 12/19/2020 Osteoarthritis of both feet 04/14/201803/17 Overview: Added automatically from request for surgery [id number] Osteoarthritis of ankle or foot 10/14/2017 04/02/2020 Overview: Added automatically from request for surgery [id number] Synovitis 10/14/2017 04/02/2020 Overview: Added automatically from request for surgery [id number] Osteoarthrosis, localized, secondary, ankle or f oot 08/07/2015 04/02/2020 documented as of this encounter (statuses as of 01/23/2022) [facility] Narrative* Problem Noted Date Resolved Date Primary osteoarthritis of right hip 12/18/2020 12/19/2020 Osteoarthritis of both feet 04/14/201803/17 Overview: Added automatically from request for surgery [id number] Osteoarthritis of ankle or foot 10/14/2017 04/02/2020 Overview: Added automatically from request for surgery [id number] Synovitis 10/14/2017 04/02/2020 Overview: Added automatically from request for surgery [id number] Osteoarthrosis, localized, secondary, ankle or f oot 08/07/2015 04/02/2020 documented as of this encounter (statuses as of 01/28/2022) [facility] Narrative* Problem Noted Date Resolved Date Primary osteoarthritis of right hip 12/18/2020 12/19/2020 Osteoarthritis of both feet 04/14/201803/17 Overview: Added automatically from request for surgery [id number] Osteoarthritis of ankle or foot 10/14/2017 04/02/2020 Overview: Added automatically from request for surgery [id number] Synovitis 10/14/2017 04/02/2020 Overview: Added automatically from request for surgery [id number] Osteoarthrosis, localized, secondary, ankle or f oot 08/07/2015 04/02/2020 documented as of this encounter (statuses as of 02/05/2022) [facility] Narrative* Problem Noted Date Resolved Date Primary osteoarthritis of right hip 12/18/2020 12/19/2020 Osteoarthritis of both feet 04/14/201803/17 Overview: Added automatically from request for surgery [id number] Osteoarthritis of ankle or foot 10/14/2017 04/02/2020 Overview: Added automatically from request for surgery [id number] Synovitis 10/14/2017 04/02/2020 Overview: Added automatically from request for surgery [id number] Osteoarthrosis, localized, secondary, ankle or f oot 08/07/2015 04/02/2020 documented as of this encounter (statuses as of 2022) [facility] Narrative* Problem Noted Date Resolved Date Primary osteoarthritis of right hip 12/18/2020 12/19/2020 Osteoarthritis of both feet 04/14/201803/17 Overview: Added automatically from request for surgery [id number] Osteoarthritis of ankle or foot 10/14/2017 04/02/2020 Overview: Added automatically from request for surgery [id number] Synovitis 10/14/2017 04/02/2020 Overview: Added automatically from request for surgery [id number] Osteoarthrosis, localized, secondary, ankle or f oot 08/07/2015 04/02/2020 documented as of this encounter (statuses as of 02/19/2022) [facility] Narrative* Problem Noted Date Resolved Date Primary osteoarthritis of right hip 12/18/2020 12/19/2020 Osteoarthritis of both feet 04/14/201803/17 Overview: Added automatically from request for surgery [id number] Osteoarthritis of ankle or foot 10/14/2017 04/02/2020 Overview: Added automatically from request for surgery [id number] Synovitis 10/14/2017 04/02/2020 Overview: Added automatically from request for surgery [id number] Osteoarthrosis, localized, secondary, ankle or f oot 08/07/2015 04/02/2020 documented as of this encounter (statuses as of 02/20/2022) [facility] Narrative* Problem Noted Date Resolved Date Primary osteoarthritis of right hip 12/18/2020 12/19/2020 Osteoarthritis of both feet 04/14/201803/17 Overview: Added automatically from request for surgery [id number] Osteoarthritis of ankle or foot 10/14/2017 04/02/2020 Overview: Added automatically from request for surgery [id number] Synovitis 10/14/2017 04/02/2020 Overview: Added automatically from request for surgery [id number] Osteoarthrosis, localized, secondary, ankle or f oot 08/07/2015 04/02/2020 documented as of this encounter (statuses as of 02/21/2022) [facility] Narrative* Problem Noted Date Resolved Date Primary osteoarthritis of right hip 12/18/2020 12/19/2020 Osteoarthritis of both feet 04/14/201803/17 Overview: Added automatically from request for surgery [id number] Osteoarthritis of ankle or foot 10/14/2017 04/02/2020 Overview: Added automatically from request for surgery [id number] Synovitis 10/14/2017 04/02/2020 Overview: Added automatically from request for surgery [id number] Osteoarthrosis, localized, secondary, ankle or f oot 08/07/2015 04/02/2020 documented as of this encounter (statuses as of 02/24/2022) [facility] Narrative* Problem Noted Date Resolved Date Primary osteoarthritis of right hip 12/18/2020 12/19/2020 Osteoarthritis of both feet 04/14/201803/17 Overview: Added automatically from request for surgery [id number] Osteoarthritis of ankle or foot 10/14/2017 04/02/2020 Overview: Added automatically from request for surgery [id number] Synovitis 10/14/2017 04/02/2020 Overview: Added automatically from request for surgery [id number] Osteoarthrosis, localized, secondary, ankle or f oot 08/07/2015 04/02/2020 documented as of this encounter (statuses as of 02/25/2022) [facility] Narrative* Problem Noted Date Resolved Date Primary osteoarthritis of right hip 12/18/2020 12/19/2020 Osteoarthritis of both feet 04/14/201803/17 Overview: Added automatically from request for surgery [id number] Osteoarthritis of ankle or foot 10/14/2017 04/02/2020 Overview: Added automatically from request for surgery [id number] Synovitis 10/14/2017 04/02/2020 Overview: Added automatically from request for surgery [id number] Osteoarthrosis, localized, secondary, ankle or f oot 08/07/2015 04/02/2020 documented as of this encounter (statuses as of 03/06/2022) [facility] Narrative* Problem Noted Date Resolved Date Primary osteoarthritis of right hip 12/18/2020 12/19/2020 Osteoarthritis of both feet 04/14/201803/17 Overview: Added automatically from request for surgery [id number] Osteoarthritis of ankle or foot 10/14/2017 04/02/2020 Overview: Added automatically from request for surgery [id number] Synovitis 10/14/2017 04/02/2020 Overview: Added automatically from request for surgery [id number] Osteoarthrosis, localized, secondary, ankle or f oot 08/07/2015 04/02/2020 documented as of this encounter (statuses as of 03/12/2022) [facility] Narrative* Problem Noted Date Resolved Date Primary osteoarthritis of right hip 12/18/2020 12/19/2020 Osteoarthritis of both feet 04/14/201803/17 Overview: Added automatically from request for surgery [id number] Osteoarthritis of ankle or foot 10/14/2017 04/02/2020 Overview: Added automatically from request for surgery [id number] Synovitis 10/14/2017 04/02/2020 Overview: Added automatically from request for surgery [id number] Osteoarthrosis, localized, secondary, ankle or f oot 08/07/2015 04/02/2020 documented as of this encounter (statuses as of 03/13/2022) [facility] Narrative* Problem Noted Date Resolved Date Primary osteoarthritis of right hip 12/18/2020 12/19/2020 Osteoarthritis of both feet 04/14/201803/17 Overview: Added automatically from request for surgery [id number] Osteoarthritis of ankle or foot 10/14/2017 04/02/2020 Overview: Added automatically from request for surgery [id number] Synovitis 10/14/2017 04/02/2020 Overview: Added automatically from request for surgery [id number] Osteoarthrosis, localized, secondary, ankle or f oot 08/07/2015 04/02/2020 documented as of this encounter (statuses as of 03/13/2022) [facility] Narrative* Problem Noted Date Resolved Date Primary osteoarthritis of right hip 12/18/2020 12/19/2020 Osteoarthritis of both feet 04/14/201803/17 Overview: Added automatically from request for surgery [id number] Osteoarthritis of ankle or foot 10/14/2017 04/02/2020 Overview: Added automatically from request for surgery [id number] Synovitis 10/14/2017 04/02/2020 Overview: Added automatically from request for surgery [id number] Osteoarthrosis, localized, secondary, ankle or f oot 08/07/2015 04/02/2020 documented as of this encounter (statuses as of 03/13/2022) [facility] Narrative* Problem Noted Date Resolved Date Primary osteoarthritis of right hip 12/18/2020 12/19/2020 Osteoarthritis of both feet 04/14/201803/17 Overview: Added automatically from request for surgery [id number] Osteoarthritis of ankle or foot 10/14/2017 04/02/2020 Overview: Added automatically from request for surgery [id number] Synovitis 10/14/2017 04/02/2020 Overview: Added automatically from request for surgery [id number] Osteoarthrosis, localized, secondary, ankle or f oot 08/07/2015 04/02/2020 documented as of this encounter (statuses as of 03/16/2022) [facility] Narrative* Problem Noted Date Resolved Date Primary osteoarthritis of right hip 12/18/2020 12/19/2020 Osteoarthritis of both feet 04/14/201803/17 Overview: Added automatically from request for surgery [id number] Osteoarthritis of ankle or foot 10/14/2017 04/02/2020 Overview: Added automatically from request for surgery [id number] Synovitis 10/14/2017 04/02/2020 Overview: Added automatically from request for surgery [id number] Osteoarthrosis, localized, secondary, ankle or f oot 08/07/2015 04/02/2020 documented as of this encounter (statuses as of 03/20/2022) [facility] Narrative* Problem Noted Date Resolved Date Primary osteoarthritis of right hip 12/18/2020 12/19/2020 Osteoarthritis of both feet 04/14/201803/17 Overview: Added automatically from request for surgery [id number] Osteoarthritis of ankle or foot 10/14/2017 04/02/2020 Overview: Added automatically from request for surgery [id number] Synovitis 10/14/2017 04/02/2020 Overview: Added automatically from request for surgery [id number] Osteoarthrosis, localized, secondary, ankle or f oot 08/07/2015 04/02/2020 documented as of this encounter (statuses as of 03/20/2022) [facility] Narrative* Problem Noted Date Resolved Date Primary osteoarthritis of right hip 12/18/2020 12/19/2020 Osteoarthritis of both feet 04/14/201803/17 Overview: Added automatically from request for surgery [id number] Osteoarthritis of ankle or foot 10/14/2017 04/02/2020 Overview: Added automatically from request for surgery [id number] Synovitis 10/14/2017 04/02/2020 Overview: Added automatically from request for surgery [id number] Osteoarthrosis, localized, secondary, ankle or f oot 08/07/2015 04/02/2020 documented as of this encounter (statuses as of 03/27/2022) [facility] Narrative* Problem Noted Date Resolved Date Primary osteoarthritis of right hip 12/18/2020 12/19/2020 Osteoarthritis of both feet 04/14/201803/17 Overview: Added automatically from request for surgery [id number] Osteoarthritis of ankle or foot 10/14/2017 04/02/2020 Overview: Added automatically from request for surgery [id number] Synovitis 10/14/2017 04/02/2020 Overview: Added automatically from request for surgery [id number] Osteoarthrosis, localized, secondary, ankle or f oot 08/07/2015 04/02/2020 documented as of this encounter (statuses as of 04/23/2022) [place] [address] History of Past illness Narrative* Problem Noted Date Resolved Date Primary osteoarthritis of right hip 12/18/2020 12/19/2020 Osteoarthritis of both feet 04/14/201803/17 Overview: Added automatically from request for surgery [id number] Osteoarthritis of ankle or foot 10/14/2017 04/02/2020 Overview: Added automatically from request for surgery [id number] Synovitis 10/14/2017 04/02/2020 Overview: Added automatically from request for surgery [id number] Osteoarthrosis, localized, secondary, ankle or f oot 08/07/2015 04/02/2020 documented as of this encounter (statuses as of 05/06/2022) [facility] Narrative* Problem Noted Date Resolved Date Primary osteoarthritis of right hip 12/18/2020 12/19/2020 Osteoarthritis of both feet 04/14/201803/17 Overview: Added automatically from request for surgery [id number] Osteoarthritis of ankle or foot 10/14/2017 04/02/2020 Overview: Added automatically from request for surgery [id number] Synovitis 10/14/2017 04/02/2020 Overview: Added automatically from request for surgery [id number] Osteoarthrosis, localized, secondary, ankle or f oot 08/07/2015 04/02/2020 documented as of this encounter (statuses as of 05/07/2022) [facility] Narrative* Problem Noted Date Resolved Date Primary osteoarthritis of right hip 12/18/2020 12/19/2020 Osteoarthritis of both feet 04/14/201803/17 Overview: Added automatically from request for surgery [id number] Osteoarthritis of ankle or foot 10/14/2017 04/02/2020 Overview: Added automatically from request for surgery [id number] Synovitis 10/14/2017 04/02/2020 Overview: Added automatically from request for surgery [id number] Osteoarthrosis, localized, secondary, ankle or f oot 08/07/2015 04/02/2020 documented as of this encounter (statuses as of 05/12/2022) [facility]-04[facility]21 History of Past illness Narrative* Problem Noted Date Resolved Date Primary osteoarthritis of right hip 12/18/2020 12/19/2020 Osteoarthritis of both feet 04/14/201803/17 Overview: Added automatically from request for surgery [id number] Osteoarthritis of ankle or foot 10/14/2017 04/02/2020 Overview: Added automatically from request for surgery [id number] Synovitis 10/14/2017 04/02/2020 Overview: Added automatically from request for surgery [id number] Osteoarthrosis, localized, secondary, ankle or f oot 08/07/2015 04/02/2020 documented as of this encounter (statuses as of 05/15/2022) [facility]21 History of Past illness Narrative* Problem Noted Date Resolved Date Primary osteoarthritis of right hip 12/18/2020 12/19/2020 Osteoarthritis of both feet 04/14/201803/17 Overview: Added automatically from request for surgery [id number] Osteoarthritis of ankle or foot 10/14/2017 04/02/2020 Overview: Added automatically from request for surgery [id number] Synovitis 10/14/2017 04/02/2020 Overview: Added automatically from request for surgery [id number] Osteoarthrosis, localized, secondary, ankle or f oot 08/07/2015 04/02/2020 documented as of this encounter (statuses as of 05/15/2022) [facility] History of Past illness Narrative* Problem Noted Date Resolved Date Primary osteoarthritis of right hip 12/18/2020 12/19/2020 Osteoarthritis of both feet 04/14/201803/17 Overview: Added automatically from request for surgery [id number] Osteoarthritis of ankle or foot 10/14/2017 04/02/2020 Overview: Added automatically from request for surgery [id number] Synovitis 10/14/2017 04/02/2020 Overview: Added automatically from request for surgery [id number] Osteoarthrosis, localized, secondary, ankle or f oot 08/07/2015 04/02/2020 documented as of this encounter (statuses as of 05/19/2022) [facility] History of Past illness Narrative* Problem Noted Date Resolved Date Primary osteoarthritis of right hip 12/18/2020 12/19/2020 Osteoarthritis of both feet 04/14/201803/17 Overview: Added automatically from request for surgery [id number] Osteoarthritis of ankle or foot 10/14/2017 04/02/2020 Overview: Added automatically from request for surgery [id number] Synovitis 10/14/2017 04/02/2020 Overview: Added automatically from request for surgery [id number] Osteoarthrosis, localized, secondary, ankle or f oot 08/07/2015 04/02/2020 documented as of this encounter (statuses as of 05/19/2022) [facility] History of Past illness Narrative* Problem Noted Date Resolved Date Primary osteoarthritis of right hip 12/18/2020 12/19/2020 Osteoarthritis of both feet 04/14/201803/17 Overview: Added automatically from request for surgery [id number] Osteoarthritis of ankle or foot 10/14/2017 04/02/2020 Overview: Added automatically from request for surgery [id number] Synovitis 10/14/2017 04/02/2020 Overview: Added automatically from request for surgery [id number] Osteoarthrosis, localized, secondary, ankle or f oot 08/07/2015 04/02/2020 documented as of this encounter (statuses as of 05/26/2022) [facility] History of Past illness Narrative* Problem Noted Date Resolved Date Primary osteoarthritis of right hip 12/18/2020 12/19/2020 Osteoarthritis of both feet 04/14/201803/17 Overview: Added automatically from request for surgery [id number] Osteoarthritis of ankle or foot 10/14/2017 04/02/2020 Overview: Added automatically from request for surgery [id number] Synovitis 10/14/2017 04/02/2020 Overview: Added automatically from request for surgery [id number] Osteoarthrosis, localized, secondary, ankle or f oot 08/07/2015 04/02/2020 documented as of this encounter (statuses as of 06/11/2022) [facility] History of Past illness Narrative* Problem Noted Date Resolved Date Primary osteoarthritis of right hip 12/18/2020 12/19/2020 Osteoarthritis of both feet 04/14/201803/17 Overview: Added automatically from request for surgery [id number] Osteoarthritis of ankle or foot 10/14/2017 04/02/2020 Overview: Added automatically from request for surgery [id number] Synovitis 10/14/2017 04/02/2020 Overview: Added automatically from request for surgery [id number] Osteoarthrosis, localized, secondary, ankle or f oot 08/07/2015 04/02/2020 documented as of this encounter (statuses as of 06/12/2022) [facility] History of Past illness Narrative* Problem Noted Date Resolved Date Primary osteoarthritis of right hip 12/18/2020 12/19/2020 Osteoarthritis of both feet 04/14/201803/17 Overview: Added automatically from request for surgery [id number] Osteoarthritis of ankle or foot 10/14/2017 04/02/2020 Overview: Added automatically from request for surgery [id number] Synovitis 10/14/2017 04/02/2020 Overview: Added automatically from request for surgery [id number] Osteoarthrosis, localized, secondary, ankle or f oot 08/07/2015 04/02/2020 documented as of this encounter (statuses as of 06/18/2022) [facility] History of Past illness Narrative* Problem Noted Date Resolved Date Primary osteoarthritis of right hip 12/18/2020 12/19/2020 Osteoarthritis of both feet 04/14/201803/17 Overview: Added automatically from request for surgery [id number] Osteoarthritis of ankle or foot 10/14/2017 04/02/2020 Overview: Added automatically from request for surgery [id number] Synovitis 10/14/2017 04/02/2020 Overview: Added automatically from request for surgery [id number] Osteoarthrosis, localized, secondary, ankle or f oot 08/07/2015 04/02/2020 documented as of this encounter (statuses as of 06/19/2022) [facility] History of Past illness Narrative* Problem Noted Date Resolved Date Primary osteoarthritis of right hip 12/18/2020 12/19/2020 Osteoarthritis of both feet 04/14/201803/17 Overview: Added automatically from request for surgery [id number] Osteoarthritis of ankle or foot 10/14/2017 04/02/2020 Overview: Added automatically from request for surgery [id number] Synovitis 10/14/2017 04/02/2020 Overview: Added automatically from request for surgery [id number] Osteoarthrosis, localized, secondary, ankle or f oot 08/07/2015 04/02/2020 documented as of this encounter (statuses as of 07/01/2022) [facility] History of Past illness Narrative* Problem Noted Date Resolved Date Primary osteoarthritis of right hip 12/18/2020 12/19/2020 Osteoarthritis of both feet 04/14/201803/17 Overview: Added automatically from request for surgery [id number] Osteoarthritis of ankle or foot 10/14/2017 04/02/2020 Overview: Added automatically from request for surgery [id number] Synovitis 10/14/2017 04/02/2020 Overview: Added automatically from request for surgery [id number] Osteoarthrosis, localized, secondary, ankle or f oot 08/07/2015 04/02/2020 documented as of this encounter (statuses as of 07/01/2022) [facility] History of Past illness Narrative* Problem Noted Date Resolved Date Primary osteoarthritis of right hip 12/18/2020 12/19/2020 Osteoarthritis of both feet 04/14/201803/17 Overview: Added automatically from request for surgery [id number] Osteoarthritis of ankle or foot 10/14/2017 04/02/2020 Overview: Added automatically from request for surgery [id number] Synovitis 10/14/2017 04/02/2020 Overview: Added automatically from request for surgery [id number] Osteoarthrosis, localized, secondary, ankle or f oot 08/07/2015 04/02/2020 documented as of this encounter (statuses as of 07/07/2022) [facility] History of Past illness Narrative* Problem Noted Date Resolved Date Primary osteoarthritis of right hip 12/18/2020 12/19/2020 Osteoarthritis of both feet 04/14/201803/17 Overview: Added automatically from request for surgery [id number] Osteoarthritis of ankle or foot 10/14/2017 04/02/2020 Overview: Added automatically from request for surgery [id number] Synovitis 10/14/2017 04/02/2020 Overview: Added automatically from request for surgery [id number] Osteoarthrosis, localized, secondary, ankle or f oot 08/07/2015 04/02/2020 documented as of this encounter (statuses as of 07/08/2022) [facility] History of Past illness Narrative* Problem Noted Date Resolved Date Primary osteoarthritis of right hip 12/18/2020 12/19/2020 Osteoarthritis of both feet 04/14/201803/17 Overview: Added automatically from request for surgery [id number] Osteoarthritis of ankle or foot 10/14/2017 04/02/2020 Overview: Added automatically from request for surgery [id number] Synovitis 10/14/2017 04/02/2020 Overview: Added automatically from request for surgery [id number] Osteoarthrosis, localized, secondary, ankle or f oot 08/07/2015 04/02/2020 documented as of this encounter (statuses as of 07/08/2022) [facility] History of Past illness Narrative* Problem Noted Date Resolved Date Primary osteoarthritis of right hip 12/18/2020 12/19/2020 Osteoarthritis of both feet 04/14/201803/17 Overview: Added automatically from request for surgery [id number] Osteoarthritis of ankle or foot 10/14/2017 04/02/2020 Overview: Added automatically from request for surgery [id number] Synovitis 10/14/2017 04/02/2020 Overview: Added automatically from request for surgery [id number] Osteoarthrosis, localized, secondary, ankle or f oot 08/07/2015 04/02/2020 documented as of this encounter (statuses as of 07/08/2022) [facility] History of Past illness Narrative* Problem Noted Date Resolved Date Primary osteoarthritis of right hip 12/18/2020 12/19/2020 Osteoarthritis of both feet 04/14/201803/17 Overview: Added automatically from request for surgery [id number] Osteoarthritis of ankle or foot 10/14/2017 04/02/2020 Overview: Added automatically from request for surgery [id number] Synovitis 10/14/2017 04/02/2020 Overview: Added automatically from request for surgery [id number] Osteoarthrosis, localized, secondary, ankle or f oot 08/07/2015 04/02/2020 documented as of this encounter (statuses as of 07/11/2022) [facility] History of Past illness Narrative* Problem Noted Date Resolved Date Primary osteoarthritis of right hip 12/18/2020 12/19/2020 Osteoarthritis of ankle or foot 10/14/2017 04/02/2020 Overview: Added automatically from request for surgery [id number] Synovitis 10/14/2017 04/02/2020 Overview: Added automatically from request for surgery [id number] Osteoarthrosis, localized, secondary, ankle or f oot 08/07/2015 04/02/2020 documented as of this encounter (statuses as of 07/21/2022) [facility] History of Past illness Narrative* Problem Noted Date Resolved Date Primary osteoarthritis of right hip 12/18/2020 12/19/2020 Osteoarthritis of ankle or foot 10/14/2017 04/02/2020 Overview: Added automatically from request for surgery [id number] Synovitis 10/14/2017 04/02/2020 Overview: Added automatically from request for surgery [id number] Osteoarthrosis, localized, secondary, ankle or f oot 08/07/2015 04/02/2020 documented as of this encounter (statuses as of 07/31/2022) [facility] History of Past illness Narrative* Problem Noted Date Resolved Date Primary osteoarthritis of right hip 12/18/2020 12/19/2020 Osteoarthritis of ankle or foot 10/14/2017 04/02/2020 Overview: Added automatically from request for surgery [id number] Synovitis 10/14/2017 04/02/2020 Overview: Added automatically from request for surgery [id number] Osteoarthrosis, localized, secondary, ankle or f oot 08/07/2015 04/02/2020 documented as of this encounter (statuses as of 08/08/2022) [facility] History of Past illness Narrative* Problem Noted Date Resolved Date Primary osteoarthritis of right hip 12/18/2020 12/19/2020 Osteoarthritis of ankle or foot 10/14/2017 04/02/2020 Overview: Added automatically from request for surgery [id number] Synovitis 10/14/2017 04/02/2020 Overview: Added automatically from request for surgery [id number] Osteoarthrosis, localized, secondary, ankle or f oot 08/07/2015 04/02/2020 documented as of this encounter (statuses as of 08/22/2022) [facility] History of Past illness Narrative* Problem Noted Date Resolved Date Primary osteoarthritis of right hip 12/18/2020 12/19/2020 Osteoarthritis of ankle or foot 10/14/2017 04/02/2020 Overview: Added automatically from request for surgery [id number] Synovitis 10/14/2017 04/02/2020 Overview: Added automatically from request for surgery [id number] Osteoarthrosis, localized, secondary, ankle or f oot 08/07/2015 04/02/2020 documented as of this encounter (statuses as of 08/23/2022) [facility] History of Past illness Narrative* Problem Noted Date Resolved Date Primary osteoarthritis of right hip 12/18/2020 12/19/2020 Osteoarthritis of ankle or foot 10/14/2017 04/02/2020 Overview: Added automatically from request for surgery [id number] Synovitis 10/14/2017 04/02/2020 Overview: Added automatically from request for surgery [id number] Osteoarthrosis, localized, secondary, ankle or f oot 08/07/2015 04/02/2020 documented as of this encounter (statuses as of 08/25/2022) [facility] History of Past illness Narrative* Problem Noted Date Resolved Date Primary osteoarthritis of right hip 12/18/2020 12/19/2020 Osteoarthritis of ankle or foot 10/14/2017 04/02/2020 Overview: Added automatically from request for surgery [id number] Synovitis 10/14/2017 04/02/2020 Overview: Added automatically from request for surgery [id number] Osteoarthrosis, localized, secondary, ankle or f oot 08/07/2015 04/02/2020 documented as of this encounter (statuses as of 08/26/2022) [facility] History of Past illness Narrative* Problem Noted Date Resolved Date Primary osteoarthritis of right hip 12/18/2020 12/19/2020 Osteoarthritis of ankle or foot 10/14/2017 04/02/2020 Overview: Added automatically from request for surgery [id number] Synovitis 10/14/2017 04/02/2020 Overview: Added automatically from request for surgery [id number] Osteoarthrosis, localized, secondary, ankle or f oot 08/07/2015 04/02/2020 documented as of this encounter (statuses as of 09/09/2022) [facility] History of Past illness Narrative* Problem Noted Date Resolved Date Primary osteoarthritis of right hip 12/18/2020 12/19/2020 Osteoarthritis of ankle or foot 10/14/2017 04/02/2020 Overview: Added automatically from request for surgery [id number] Synovitis 10/14/2017 04/02/2020 Overview: Added automatically from request for surgery [id number] Osteoarthrosis, localized, secondary, ankle or f oot 08/07/2015 04/02/2020 documented as of this encounter (statuses as of 09/12/2022) [facility] History of Past illness Narrative* Problem Noted Date Resolved Date Primary osteoarthritis of right hip 12/18/2020 12/19/2020 Osteoarthritis of ankle or foot 10/14/2017 04/02/2020 Overview: Added automatically from request for surgery [id number] Synovitis 10/14/2017 04/02/2020 Overview: Added automatically from request for surgery [id number] Osteoarthrosis, localized, secondary, ankle or f oot 08/07/2015 04/02/2020 documented as of this encounter (statuses as of 09/15/2022) [facility] History of Past illness Narrative* Problem Noted Date Resolved Date Primary osteoarthritis of right hip 12/18/2020 12/19/2020 Osteoarthritis of ankle or foot 10/14/2017 04/02/2020 Overview: Added automatically from request for surgery [id number] Synovitis 10/14/2017 04/02/2020 Overview: Added automatically from request for surgery [id number] Osteoarthrosis, localized, secondary, ankle or f oot 08/07/2015 04/02/2020 documented as of this encounter (statuses as of 09/15/2022) [facility] History of Past illness Narrative* Problem Noted Date Resolved Date Primary osteoarthritis of right hip 12/18/2020 12/19/2020 Osteoarthritis of ankle or foot 10/14/2017 04/02/2020 Overview: Added automatically from request for surgery [id number] Synovitis 10/14/2017 04/02/2020 Overview: Added automatically from request for surgery [id number] Osteoarthrosis, localized, secondary, ankle or f oot 08/07/2015 04/02/2020 documented as of this encounter (statuses as of 09/22/2022) [facility] History of Past illness Narrative* Problem Noted Date Resolved Date Primary osteoarthritis of right hip 12/18/2020 12/19/2020 Osteoarthritis of ankle or foot 10/14/2017 04/02/2020 Overview: Added automatically from request for surgery [id number] Synovitis 10/14/2017 04/02/2020 Overview: Added automatically from request for surgery [id number] Osteoarthrosis, localized, secondary, ankle or f oot 08/07/2015 04/02/2020 documented as of this encounter (statuses as of 09/24/2022) [facility] History of Past illness Narrative* Problem Noted Date Resolved Date Primary osteoarthritis of right hip 12/18/2020 12/19/2020 Osteoarthritis of ankle or foot 10/14/2017 04/02/2020 Overview: Added automatically from request for surgery [id number] Synovitis 10/14/2017 04/02/2020 Overview: Added automatically from request for surgery [id number] Osteoarthrosis, localized, secondary, ankle or f oot 08/07/2015 04/02/2020 documented as of this encounter (statuses as of 10/02/2022) [facility] History of Past illness Narrative* Problem Noted Date Resolved Date Primary osteoarthritis of right hip 12/18/2020 12/19/2020 Osteoarthritis of ankle or foot 10/14/2017 04/02/2020 Overview: Added automatically from request for surgery [id number] Synovitis 10/14/2017 04/02/2020 Overview: Added automatically from request for surgery [id number] Osteoarthrosis, localized, secondary, ankle or f oot 08/07/2015 04/02/2020 documented as of this encounter (statuses as of 10/16/2022) [facility] History of Past illness Narrative* Problem Noted Date Resolved Date Primary osteoarthritis of right hip 12/18/2020 12/19/2020 Osteoarthritis of ankle or foot 10/14/2017 04/02/2020 Overview: Added automatically from request for surgery [id number] Synovitis 10/14/2017 04/02/2020 Overview: Added automatically from request for surgery [id number] Osteoarthrosis, localized, secondary, ankle or f oot 08/07/2015 04/02/2020 documented as of this encounter (statuses as of 10/17/2022) [facility] History of Past illness Narrative* Problem Noted Date Resolved Date Primary osteoarthritis of right hip 12/18/2020 12/19/2020 Osteoarthritis of ankle or foot 10/14/2017 04/02/2020 Overview: Added automatically from request for surgery [id number] Synovitis 10/14/2017 04/02/2020 Overview: Added automatically from request for surgery [id number] Osteoarthrosis, localized, secondary, ankle or f oot 08/07/2015 04/02/2020 documented as of this encounter (statuses as of 10/22/2022) [facility] History of Past illness Narrative* Problem Noted Date Resolved Date Primary osteoarthritis of right hip 12/18/2020 12/19/2020 Osteoarthritis of ankle or foot 10/14/2017 04/02/2020 Overview: Added automatically from request for surgery [id number] Synovitis 10/14/2017 04/02/2020 Overview: Added automatically from request for surgery [id number] Osteoarthrosis, localized, secondary, ankle or f oot 08/07/2015 04/02/2020 documented as of this encounter (statuses as of 10/22/2022) [facility] History of Past illness Narrative* Problem Noted Date Resolved Date Primary osteoarthritis of right hip 12/18/2020 12/19/2020 Osteoarthritis of ankle or foot 10/14/2017 04/02/2020 Overview: Added automatically from request for surgery [id number] Synovitis 10/14/2017 04/02/2020 Overview: Added automatically from request for surgery [id number] Osteoarthrosis, localized, secondary, ankle or f oot 08/07/2015 04/02/2020 documented as of this encounter (statuses as of 10/23/2022) [facility] History of Past illness Narrative* Problem Noted Date Resolved Date Primary osteoarthritis of right hip 12/18/2020 12/19/2020 Osteoarthritis of ankle or foot 10/14/2017 04/02/2020 Overview: Added automatically from request for surgery [id number] Synovitis 10/14/2017 04/02/2020 Overview: Added automatically from request for surgery [id number] Osteoarthrosis, localized, secondary, ankle or f oot 08/07/2015 04/02/2020 documented as of this encounter (statuses as of 10/24/2022) [facility] History of Past illness Narrative* Problem Noted Date Resolved Date Primary osteoarthritis of right hip 12/18/2020 12/19/2020 Osteoarthritis of ankle or foot 10/14/2017 04/02/2020 Overview: Added automatically from request for surgery [id number] Synovitis 10/14/2017 04/02/2020 Overview: Added automatically from request for surgery [id number] Osteoarthrosis, localized, secondary, ankle or f oot 08/07/2015 04/02/2020 documented as of this encounter (statuses as of 10/24/2022) [facility] History of Past illness Narrative* Problem Noted Date Resolved Date Primary osteoarthritis of right hip 12/18/2020 12/19/2020 Osteoarthritis of ankle or foot 10/14/2017 04/02/2020 Overview: Added automatically from request for surgery [id number] Synovitis 10/14/2017 04/02/2020 Overview: Added automatically from request for surgery [id number] Osteoarthrosis, localized, secondary, ankle or f oot 08/07/2015 04/02/2020 documented as of this encounter (statuses as of 10/29/2022) [facility] History of Past illness Narrative* Problem Noted Date Resolved Date Primary osteoarthritis of right hip 12/18/2020 12/19/2020 Osteoarthritis of ankle or foot 10/14/2017 04/02/2020 Overview: Added automatically from request for surgery [id number] Synovitis 10/14/2017 04/02/2020 Overview: Added automatically from request for surgery [id number] Osteoarthrosis, localized, secondary, ankle or f oot 08/07/2015 04/02/2020 documented as of this encounter (statuses as of 10/29/2022) [facility] History of Past illness Narrative* Problem Noted Date Resolved Date Primary osteoarthritis of right hip 12/18/2020 12/19/2020 Osteoarthritis of ankle or foot 10/14/2017 04/02/2020 Overview: Added automatically from request for surgery [id number] Synovitis 10/14/2017 04/02/2020 Overview: Added automatically from request for surgery [id number] Osteoarthrosis, localized, secondary, ankle or f oot 08/07/2015 04/02/2020 documented as of this encounter (statuses as of 11/25/2022) [facility] History of Past illness Narrative* Problem Noted Date Resolved Date Primary osteoarthritis of right hip 12/18/2020 12/19/2020 Osteoarthritis of ankle or foot 10/14/2017 04/02/2020 Overview: Added automatically from request for surgery [id number] Synovitis 10/14/2017 04/02/2020 Overview: Added automatically from request for surgery [id number] Osteoarthrosis, localized, secondary, ankle or f oot 08/07/2015 04/02/2020 documented as of this encounter (statuses as of 12/12/2022) [facility] History of Past illness Narrative* Problem Noted Date Resolved Date Primary osteoarthritis of right hip 12/18/2020 12/19/2020 Osteoarthritis of ankle or foot 10/14/2017 04/02/2020 Overview: Added automatically from request for surgery [id number] Synovitis 10/14/2017 04/02/2020 Overview: Added automatically from request for surgery [id number] Osteoarthrosis, localized, secondary, ankle or f oot 08/07/2015 04/02/2020 documented as of this encounter (statuses as of 12/15/2022) [facility] History of Past illness Narrative* Problem Noted Date Resolved Date Primary osteoarthritis of right hip 12/18/2020 12/19/2020 Osteoarthritis of ankle or foot 10/14/2017 04/02/2020 Overview: Added automatically from request for surgery [id number] Synovitis 10/14/2017 04/02/2020 Overview: Added automatically from request for surgery [id number] Osteoarthrosis, localized, secondary, ankle or f oot 08/07/2015 04/02/2020 documented as of this encounter (statuses as of 12/20/2022) [facility]05-04-2021 History of Past illness Narrative* Problem Noted Date Resolved Date Primary osteoarthritis of right hip 12/18/2020 12/19/2020 Osteoarthritis of ankle or foot 10/14/2017 04/02/2020 Overview: Added automatically from request for surgery [id number] Synovitis 10/14/2017 04/02/2020 Overview: Added automatically from request for surgery [id number] Osteoarthrosis, localized, secondary, ankle or f oot 08/07/2015 04/02/2020 documented as of this encounter (statuses as of 01/13/2023) [facility]-04[facility]2021 History of Past illness Narrative* Problem Noted Date Resolved Date Primary osteoarthritis of right hip 12/18/2020 12/19/2020 Osteoarthritis of ankle or foot 10/14/2017 04/02/2020 Overview: Added automatically from request for surgery [id number] Synovitis 10/14/2017 04/02/2020 Overview: Added automatically from request for surgery [id number] Osteoarthrosis, localized, secondary, ankle or f oot 08/07/2015 04/02/2020 documented as of this encounter (statuses as of 01/22/2023) [facility]04[facility]2021 History of Past illness Narrative* Problem Noted Date Resolved Date Primary osteoarthritis of right hip 12/18/2020 12/19/2020 Osteoarthritis of ankle or foot 10/14/2017 04/02/2020 Overview: Added automatically from request for surgery [id number] Synovitis 10/14/2017 04/02/2020 Overview: Added automatically from request for surgery [id number] Osteoarthrosis, localized, secondary, ankle or f oot 08/07/2015 04/02/2020 documented as of this encounter (statuses as of 02/05/2023) [facility]21 History of Past illness Narrative* Problem Noted Date Resolved Date Primary osteoarthritis of right hip 12/18/2020 12/19/2020 Osteoarthritis of ankle or foot 10/14/2017 04/02/2020 Overview: Added automatically from request for surgery [id number] Synovitis 10/14/2017 04/02/2020 Overview: Added automatically from request for surgery [id number] Osteoarthrosis, localized, secondary, ankle or f oot 08/07/2015 04/02/2020 documented as of this encounter (statuses as of 02/05/2023) [facility]04[facility]2021 History of Past illness Narrative* Problem Noted Date Resolved Date Primary osteoarthritis of right hip 12/18/2020 12/19/2020 Osteoarthritis of ankle or foot 10/14/2017 04/02/2020 Overview: Added automatically from request for surgery [id number] Synovitis 10/14/2017 04/02/2020 Overview: Added automatically from request for surgery [id number] Osteoarthrosis, localized, secondary, ankle or f oot 08/07/2015 04/02/2020 documented as of this encounter (statuses as of 02/09/2023) [facility]21 History of Past illness Narrative* Problem Noted Date Resolved Date Primary osteoarthritis of right hip 12/18/2020 12/19/2020 Osteoarthritis of ankle or foot 10/14/2017 04/02/2020 Overview: Added automatically from request for surgery [id number] Synovitis 10/14/2017 04/02/2020 Overview: Added automatically from request for surgery [id number] Osteoarthrosis, localized, secondary, ankle or f oot 08/07/2015 04/02/2020 documented as of this encounter (statuses as of 02/10/2023) [facility]21 History of Past illness Narrative* Problem Noted Date Resolved Date Primary osteoarthritis of right hip 12/18/2020 12/19/2020 Osteoarthritis of ankle or foot 10/14/2017 04/02/2020 Overview: Added automatically from request for surgery [id number] Synovitis 10/14/2017 04/02/2020 Overview: Added automatically from request for surgery [id number] Osteoarthrosis, localized, secondary, ankle or f oot 08/07/2015 04/02/2020 documented as of this encounter (statuses as of 02/13/2023) [facility]21 History of Past illness Narrative* Problem Noted Date Resolved Date Primary osteoarthritis of right hip 12/18/2020 12/19/2020 Osteoarthritis of ankle or foot 10/14/2017 04/02/2020 Overview: Added automatically from request for surgery [id number] Synovitis 10/14/2017 04/02/2020 Overview: Added automatically from request for surgery [id number] Osteoarthrosis, localized, secondary, ankle or f oot 08/07/2015 04/02/2020 documented as of this encounter (statuses as of 02/16/2023) [facility]21 History of Past illness Narrative* Problem Noted Date Resolved Date Primary osteoarthritis of right hip 12/18/2020 12/19/2020 Osteoarthritis of ankle or foot 10/14/2017 04/02/2020 Overview: Added automatically from request for surgery [id number] Synovitis 10/14/2017 04/02/2020 Overview: Added automatically from request for surgery [id number] Osteoarthrosis, localized, secondary, ankle or f oot 08/07/2015 04/02/2020 documented as of this encounter (statuses as of 02/19/2023) [facility]04[facility]2021 History of Past illness Narrative* Problem Noted Date Resolved Date Primary osteoarthritis of right hip 12/18/2020 12/19/2020 Osteoarthritis of ankle or foot 10/14/2017 04/02/2020 Overview: Added automatically from request for surgery [id number] Synovitis 10/14/2017 04/02/2020 Overview: Added automatically from request for surgery [id number] Osteoarthrosis, localized, secondary, ankle or f oot 08/07/2015 04/02/2020 documented as of this encounter (statuses as of 02/19/2023) [facility]21 History of Past illness Narrative* Problem Noted Date Diagnosed Date Resolved Date Primary osteoarthritis of right hip 12/18/2020 12/19/2020 Osteoarthritis of ankle or foot 10/14/2017 04/02/2020 Overview: Added automatically from request for surgery [id number] Synovitis 10/14/2017 04/02/2020 Overview: Added automatically from request for surgery [id number] Osteoarthrosis, localized, s econdary, ankle or foot 08/07/2015 04/02/2020 documented as of this encounter (statuses as of 03/12/2023) [facility]2021 History of Past illness Narrative* Problem Noted Date Diagnosed Date Resolved Date Primary osteoarthritis of right hip 12/18/2020 12/19/2020 Osteoarthritis of ankle or foot 10/14/2017 04/02/2020 Overview: Added automatically from request for surgery [id number] Synovitis 10/14/2017 04/02/2020 Overview: Added automatically from request for surgery [id number] Osteoarthrosis, localized, s econdary, ankle or foot 08/07/2015 04/02/2020 documented as of this encounter (statuses as of 03/12/2023) [facility]2021 History of Past illness Narrative* Problem Noted Date Diagnosed Date Resolved Date Primary osteoarthritis of right hip 12/18/2020 12/19/2020 Osteoarthritis of ankle or foot 10/14/2017 04/02/2020 Overview: Added automatically from request for surgery [id number] Synovitis 10/14/2017 04/02/2020 Overview: Added automatically from request for surgery [id number] Osteoarthrosis, localized, s econdary, ankle or foot 08/07/2015 04/02/2020 documented as of this encounter (statuses as of 03/16/2023) [facility]2021 History of Past illness Narrative* Problem Noted Date Diagnosed Date Resolved Date Primary osteoarthritis of right hip 12/18/2020 12/19/2020 Osteoarthritis of ankle or foot 10/14/2017 04/02/2020 Overview: Added automatically from request for surgery [id number] Synovitis 10/14/2017 04/02/2020 Overview: Added automatically from request for surgery [id number] Osteoarthrosis, localized, s econdary, ankle or foot 08/07/2015 04/02/2020 documented as of this encounter (statuses as of 03/19/2023) [facility]04[facility]2021 History of Past illness Narrative* Problem Noted Date Diagnosed Date Resolved Date Primary osteoarthritis of right hip 12/18/2020 12/19/2020 Osteoarthritis of ankle or foot 10/14/2017 04/02/2020 Overview: Added automatically from request for surgery [id number] Synovitis 10/14/2017 04/02/2020 Overview: Added automatically from request for surgery [id number] Osteoarthrosis, localized, s econdary, ankle or foot 08/07/2015 04/02/2020 documented as of this encounter (statuses as of 03/19/2023) [facility]2021 History of Past illness Narrative* Problem Noted Date Diagnosed Date Resolved Date Primary osteoarthritis of right hip 12/18/2020 12/19/2020 Osteoarthritis of ankle or foot 10/14/2017 04/02/2020 Overview: Added automatically from request for surgery [id number] Synovitis 10/14/2017 04/02/2020 Overview: Added automatically from request for surgery [id number] Osteoarthrosis, localized, s econdary, ankle or foot 08/07/2015 04/02/2020 documented as of this encounter (statuses as of 03/27/2023) [facility]21 History of Past illness Narrative* Problem Noted Date Diagnosed Date Resolved Date Primary osteoarthritis of right hip 12/18/2020 12/19/2020 Osteoarthritis of ankle or foot 10/14/2017 04/02/2020 Overview: Added automatically from request for surgery [id number] Synovitis 10/14/2017 04/02/2020 Overview: Added automatically from request for surgery [id number] Osteoarthrosis, localized, s econdary, ankle or foot 08/07/2015 04/02/2020 documented as of this encounter (statuses as of 04/03/2023) [facility]21 History of Past illness Narrative* Problem Noted Date Diagnosed Date Resolved Date Primary osteoarthritis of right hip 12/18/2020 12/19/2020 Osteoarthritis of ankle or foot 10/14/2017 04/02/2020 Overview: Added automatically from request for surgery [id number] Synovitis 10/14/2017 04/02/2020 Overview: Added automatically from request for surgery [id number] Osteoarthrosis, localized, s econdary, ankle or foot 08/07/2015 04/02/2020 documented as of this encounter (statuses as of 04/08/2023) [facility]21 History of Past illness Narrative* Problem Noted Date Diagnosed Date Resolved Date Primary osteoarthritis of right hip 12/18/2020 12/19/2020 Osteoarthritis of ankle or foot 10/14/2017 04/02/2020 Overview: Added automatically from request for surgery [id number] Synovitis 10/14/2017 04/02/2020 Overview: Added automatically from request for surgery [id number] Osteoarthrosis, localized, s econdary, ankle or foot 08/07/2015 04/02/2020 documented as of this encounter (statuses as of 04/10/2023) [address]04-2021 History of Past illness Narrative* Problem Noted Date Diagnosed Date Resolved Date Primary osteoarthritis of right hip 12/18/2020 12/19/2020 Osteoarthritis of ankle or foot 10/14/2017 04/02/2020 Overview: Added automatically from request for surgery [id number] Synovitis 10/14/2017 04/02/2020 Overview: Added automatically from request for surgery [id number] Osteoarthrosis, localized, s econdary, ankle or foot 08/07/2015 04/02/2020 documented as of this encounter (statuses as of 04/15/2023) [facility]2021 History of Past illness Narrative* Problem Noted Date Diagnosed Date Resolved Date Primary osteoarthritis of right hip 12/18/2020 12/19/2020 Osteoarthritis of ankle or foot 10/14/2017 04/02/2020 Overview: Added automatically from request for surgery [id number] Synovitis 10/14/2017 04/02/2020 Overview: Added automatically from request for surgery [id number] Osteoarthrosis, localized, s econdary, ankle or foot 08/07/2015 04/02/2020 documented as of this encounter (statuses as of 04/17/2023) [facility]04[facility]2021 History of Past illness Narrative* Problem Noted Date Diagnosed Date Resolved Date Primary osteoarthritis of right hip 12/18/2020 12/19/2020 Osteoarthritis of ankle or foot 10/14/2017 04/02/2020 Overview: Added automatically from request for surgery [id number] Synovitis 10/14/2017 04/02/2020 Overview: Added automatically from request for surgery [id number] Osteoarthrosis, localized, s econdary, ankle or foot 08/07/2015 04/02/2020 documented as of this encounter (statuses as of 04/17/2023) [facility]04[facility]2021 History of Past illness Narrative* Problem Noted Date Diagnosed Date Resolved Date Primary osteoarthritis of right hip 12/18/2020 12/19/2020 Osteoarthritis of ankle or foot 10/14/2017 04/02/2020 Overview: Added automatically from request for surgery [id number] Synovitis 10/14/2017 04/02/2020 Overview: Added automatically from request for surgery [id number] Osteoarthrosis, localized, s econdary, ankle or foot 08/07/2015 04/02/2020 documented as of this encounter (statuses as of 04/27/2023) [facility]2021 History of Past illness Narrative* Problem Noted Date Diagnosed Date Resolved Date Primary osteoarthritis of right hip 12/18/2020 12/19/2020 Osteoarthritis of ankle or foot 10/14/2017 04/02/2020 Overview: Added automatically from request for surgery [id number] Synovitis 10/14/2017 04/02/2020 Overview: Added automatically from request for surgery [id number] Osteoarthrosis, localized, s econdary, ankle or foot 08/07/2015 04/02/2020 documented as of this encounter (statuses as of 06/12/2023) [facility]2021 History of Past illness Narrative* Problem Noted Date Diagnosed Date Resolved Date Primary osteoarthritis of right hip 12/18/2020 12/19/2020 Osteoarthritis of ankle or foot 10/14/2017 04/02/2020 Overview: Added automatically from request for surgery [id number] Synovitis 10/14/2017 04/02/2020 Overview: Added automatically from request for surgery [id number] Osteoarthrosis, localized, s econdary, ankle or foot 08/07/2015 04/02/2020 documented as of this encounter (statuses as of 06/16/2023) [facility]2021 History of Past illness Narrative* Problem Noted Date Diagnosed Date Resolved Date Primary osteoarthritis of right hip 12/18/2020 12/19/2020 Osteoarthritis of ankle or foot 10/14/2017 04/02/2020 Overview: Added automatically from request for surgery [id number] Synovitis 10/14/2017 04/02/2020 Overview: Added automatically from request for surgery [id number] Osteoarthrosis, localized, s econdary, ankle or foot 08/07/2015 04/02/2020 documented as of this encounter (statuses as of 06/25/2023) [facility]04[facility]2021 History of Past illness Narrative* Problem Noted Date Diagnosed Date Resolved Date Primary osteoarthritis of right hip 12/18/2020 12/19/2020 Osteoarthritis of ankle or foot 10/14/2017 04/02/2020 Overview: Added automatically from request for surgery [id number] Synovitis 10/14/2017 04/02/2020 Overview: Added automatically from request for surgery [id number] Osteoarthrosis, localized, s econdary, ankle or foot 08/07/2015 04/02/2020 documented as of this encounter (statuses as of 07/01/2023) [facility]04[facility]2021 History of Past illness Narrative* Problem Noted Date Diagnosed Date Resolved Date Primary osteoarthritis of right hip 12/18/2020 12/19/2020 Osteoarthritis of ankle or foot 10/14/2017 04/02/2020 Overview: Added automatically from request for surgery [id number] Synovitis 10/14/2017 04/02/2020 Overview: Added automatically from request for surgery [id number] Osteoarthrosis, localized, s econdary, ankle or foot 08/07/2015 04/02/2020 documented as of this encounter (statuses as of 07/02/2023) [facility]04[facility]2021 History of Past illness Narrative* Problem Noted Date Diagnosed Date Resolved Date Primary osteoarthritis of right hip 12/18/2020 12/19/2020 Osteoarthritis of ankle or foot 10/14/2017 04/02/2020 Overview: Added automatically from request for surgery [id number] Synovitis 10/14/2017 04/02/2020 Overview: Added automatically from request for surgery [id number] Osteoarthrosis, localized, s econdary, ankle or foot 08/07/2015 04/02/2020 documented as of this encounter (statuses as of 07/02/2023) [facility]04[facility]2021 History of Past illness Narrative* Problem Noted Date Diagnosed Date Resolved Date Primary osteoarthritis of right hip 12/18/2020 12/19/2020 Osteoarthritis of ankle or foot 10/14/2017 04/02/2020 Overview: Added automatically from request for surgery [id number] Synovitis 10/14/2017 04/02/2020 Overview: Added automatically from request for surgery [id number] Osteoarthrosis, localized, s econdary, ankle or foot 08/07/2015 04/02/2020 documented as of this encounter (statuses as of 07/08/2023) [facility]2021 History of Past illness Narrative* Problem Noted Date Diagnosed Date Resolved Date Primary osteoarthritis of right hip 12/18/2020 12/19/2020 Osteoarthritis of ankle or foot 10/14/2017 04/02/2020 Overview: Added automatically from request for surgery [id number] Synovitis 10/14/2017 04/02/2020 Overview: Added automatically from request for surgery [id number] Osteoarthrosis, localized, s econdary, ankle or foot 08/07/2015 04/02/2020 documented as of this encounter (statuses as of 07/21/2023) [facility]2021 History of Past illness Narrative* Problem Noted Date Diagnosed Date Resolved Date Primary osteoarthritis of right hip 12/18/2020 12/19/2020 Osteoarthritis of ankle or foot 10/14/2017 04/02/2020 Overview: Added automatically from request for surgery [id number] Synovitis 10/14/2017 04/02/2020 Overview: Added automatically from request for surgery [id number] Osteoarthrosis, localized, s econdary, ankle or foot 08/07/2015 04/02/2020 documented as of this encounter (statuses as of 07/21/2023) [facility]2021 History of Past illness Narrative* Problem Noted Date Diagnosed Date Resolved Date Primary osteoarthritis of right hip 12/18/2020 12/19/2020 Osteoarthritis of ankle or foot 10/14/2017 04/02/2020 Overview: Added automatically from request for surgery [id number] Synovitis 10/14/2017 04/02/2020 Overview: Added automatically from request for surgery [id number] Osteoarthrosis, localized, s econdary, ankle or foot 08/07/2015 04/02/2020 documented as of this encounter (statuses as of 09/29/2023) [facility]21 History of Past illness Narrative* Problem Noted Date Diagnosed Date Resolved Date Primary osteoarthritis of right hip 12/18/2020 12/19/2020 Osteoarthritis of ankle or foot 10/14/2017 04/02/2020 Overview: Added automatically from request for surgery [id number] Synovitis 10/14/2017 04/02/2020 Overview: Added automatically from request for surgery [id number] Osteoarthrosis, localized, s econdary, ankle or foot 08/07/2015 04/02/2020 documented as of this encounter (statuses as of 09/30/2023) [facility]21 History of Past illness Narrative* Problem Noted Date Diagnosed Date Resolved Date Primary osteoarthritis of right hip 12/18/2020 12/19/2020 Osteoarthritis of ankle or foot 10/14/2017 04/02/2020 Overview: Added automatically from request for surgery [id number] Synovitis 10/14/2017 04/02/2020 Overview: Added automatically from request for surgery [id number] Osteoarthrosis, localized, s econdary, ankle or foot 08/07/2015 04/02/2020 documented as of this encounter (statuses as of 10/01/2023) [facility] History of Past illness Narrative* Problem Noted Date Diagnosed Date Resolved Date Primary osteoarthritis of right hip 12/18/2020 12/19/2020 Osteoarthritis of ankle or foot 10/14/2017 04/02/2020 Overview: Added automatically from request for surgery [id number] Synovitis 10/14/2017 04/02/2020 Overview: Added automatically from request for surgery [id number] Osteoarthrosis, localized, s econdary, ankle or foot 08/07/2015 04/02/2020 documented as of this encounter (statuses as of 10/01/2023) [facility]21 History of Past illness Narrative* Problem Noted Date Diagnosed Date Resolved Date Primary osteoarthritis of right hip 12/18/2020 12/19/2020 Osteoarthritis of ankle or foot 10/14/2017 04/02/2020 Overview: Added automatically from request for surgery [id number] Synovitis 10/14/2017 04/02/2020 Overview: Added automatically from request for surgery [id number] Osteoarthrosis, localized, s econdary, ankle or foot 08/07/2015 04/02/2020 documented as of this encounter (statuses as of 10/09/2023) [facility]21 History of Past illness Narrative* Problem Noted Date Diagnosed Date Resolved Date Primary osteoarthritis of right hip 12/18/2020 12/19/2020 Osteoarthritis of ankle or foot 10/14/2017 04/02/2020 Overview: Added automatically from request for surgery [id number] Synovitis 10/14/2017 04/02/2020 Overview: Added automatically from request for surgery [id number] Osteoarthrosis, localized, s econdary, ankle or foot 08/07/2015 04/02/2020 documented as of this encounter (statuses as of 10/14/2023) [facility]21 History of Past illness Narrative* Problem Noted Date Diagnosed Date Resolved Date Primary osteoarthritis of right hip 12/18/2020 12/19/2020 Osteoarthritis of ankle or foot 10/14/2017 04/02/2020 Overview: Added automatically from request for surgery [id number] Synovitis 10/14/2017 04/02/2020 Overview: Added automatically from request for surgery [id number] Osteoarthrosis, localized, s econdary, ankle or foot 08/07/2015 04/02/2020 documented as of this encounter (statuses as of 10/24/2023) [facility]21 History of Past illness Narrative* Problem Noted Date Diagnosed Date Resolved Date Primary osteoarthritis of right hip 12/18/2020 12/19/2020 Osteoarthritis of ankle or foot 10/14/2017 04/02/2020 Overview: Added automatically from request for surgery [id number] Synovitis 10/14/2017 04/02/2020 Overview: Added automatically from request for surgery [id number] Osteoarthrosis, localized, s econdary, ankle or foot 08/07/2015 04/02/2020 documented as of this encounter (statuses as of 10/24/2023) [facility]21 History of Past illness Narrative* Problem Noted Date Diagnosed Date Resolved Date Primary osteoarthritis of right hip 12/18/2020 12/19/2020 Osteoarthritis of ankle or foot 10/14/2017 04/02/2020 Overview: Added automatically from request for surgery [id number] Synovitis 10/14/2017 04/02/2020 Overview: Added automatically from request for surgery [id number] Osteoarthrosis, localized, s econdary, ankle or foot 08/07/2015 04/02/2020 documented as of this encounter (statuses as of 10/28/2023) [facility]05-04-2021 NoteHNO ID: [id number] Author: My Olivas MD Service: Anesthesiology Author [...] December 18, 2020 TIME: 10:20 AM CSN: [id number] History of Past illness Narrative* Problem Noted Date Diagnosed Date Resolved Date Osteoarthritis of ankle or foot 10/14/2017 04/02/2020 Overview: Added automatically from request for surgery [id number] Synovitis 10/14/2017 04/02/2020 Overview: Added automatically from request for surgery [id number] Osteoarthrosis, localized, s econdary, ankle or foot 08/07/2015 04/02/2020 documented as of this encounter (statuses as of 03/27/2023) [facility] note* Diagnosis Systemic lupus erythematosus, unspecified SLE type, unspecified organ involvement status (HCC)- Primary High risk medication use Encounter for long-term (current) use of other medications Long-term use of Plaquenil Encounter for long-term (current) use of other medications [facility] Diagnosis Systemic lupus erythematosus, unspecified SLE type, unspecified organ involvement status (HCC)- Primary High risk medication use Encounter for long-term (current) use of other medications [facility]* Diagnosis Diarrhea, unspecified type documented in this encounter [facility] note* Diagnosis Medication refill Issue of repeat prescriptions documented in this encounter [facility] note* Diagnosis Onset Date Resolution Status Acute alteration in mental status acute Acute UTI acute Headache acute [facility] Work Phone: Evaluation note* Diagnosis Onset Date Resolution Status Acute alteration in mental status acute Acute UTI acute Generalized weakness acute Headache acute Lupus acute Obesity acute MONI (obstructive sleep apnea) acute HLD (hyperlipidemia) chronic HTN (hypertension) chronic [facility] Work Phone: Evaluation note* Diagnosis Diarrhea, unspecified type- Primary [facility] Diagnosis Systemic lupus erythematosus, unspecified SLE type, unspecified organ involvement status (HCC) High risk medication use Encounter for long-term (current) use of other medications [facility] Diagnosis C. difficile diarrhea- Primary Intestinal infection due to clostridium difficile documented in this [facility] Diagnosis Encounter for prophylactic measures, unspecified- Primary [facility] this [facility] Diagnosis Membranous lupus nephritis syndrome (HCC)- Primary Systemic lupus erythematosus High risk medication use Encounter for long-term (current) use of other medications Systemic lupus erythematosus, unspecified SLE type, unspecified organ involvement status (HCC) Asymptomatic postmenopausal status [facility] this [facility] Diagnosis Systemic lupus erythematosus, unspecified SLE type, unspecified organ involvement status (HCC)- Primary Membranous lupus nephritis syndrome (HCC) Systemic lupus erythematosus High risk medication use Encounter for long-term (current) use of other medications Encounter for prophylactic measures, unspecified [facility] Diagnosis Asymptomatic postmenopausal status [facility] Diagnosis Asymptomatic postmenopausal status- Primary Membranous lupus nephritis syndrome (HCC) Systemic lupus erythematosus High risk medication use Encounter for long-term (current) use of other medications [facility] Diagnosis High risk medication use Encounter for long-term (current) use of other medications Systemic lupus erythematosus, unspecified SLE type, unspecified organ involvement status (HCC) documented [facility] Diagnosis Hypertrophic obstructive cardiomyopathy (HCC)- Primary [facility] Diagnosis Osteopenia, unspecified location- Primary Vitamin D deficiency disease Unspecified vitamin D deficiency Serum calcium elevated Hypercalcemia Balance problem Other symptoms involving nervous and musculoskeletal systems documented in this encounter [facility] note* Diagnosis Diarrhea, unspecified type documented in this encounter [facility] note* Diagnosis Osteopenia, unspecified location- Primary Balance problem Other symptoms involving nervous and musculoskeletal systems Hypercalcemia Hyperparathyroid (HCC) documented in this encounter [facility] note* Diagnosis Primary osteoarthritis of both feet- Primary documented in this encounter [facility] note* Diagnosis Hypercalcemia Hyperparathyroid (HCC) Primary osteoarthritis of both feet documented in this encounter [facility] note* Diagnosis Systemic lupus erythematosus, unspecified SLE type, unspecified organ involvement status (HCC)- Primary Hyperparathyroid (HCC) Primary osteoarthritis of both feet documented in this encounter [facility] note* Diagnosis Systemic lupus erythematosus, unspecified SLE type, unspecified organ involvement status (HCC)- Primary Primary osteoarthritis of both feet documented in this encounter [facility] note* Diagnosis Hyperparathyroidism (HCC)- Primary Hyperparathyroidism, unspecified Primary osteoarthritis of both feet documented in this encounter [facility] note* Diagnosis Hypercalcemia Hyperparathyroid (HCC) Primary hyperparathyroidism (HCC)- Primary Primary hyperparathyroidism Primary osteoarthritis of both feet documented in this encounter [facility] note* Diagnosis Hyperparathyroidism (HCC) Hyperparathyroidism, unspecified Primary osteoarthritis of both feet documented in this encounter [facility] note* Diagnosis Hypercalcemia Hyperparathyroid (HCC) Primary osteoarthritis of both feet Primary hyperparathyroidism (HCC) Primary hyperparathyroidism documented in this encounter [facility] note* Diagnosis Pre-op evaluation- Primary Preoperative examination, [...] (HCC) Primary hyperparathyroidism documented in this encounter [facility] note* Diagnosis Hyperparathyroidism (HCC)- Primary Hyperparathyroidism, unspecified Primary hyperparathyroidism (HCC) Primary hyperparathyroidism documented in this encounter [facility] note* Diagnosis Systemic lupus erythematosus, unspecified SLE type, unspecified organ involvement status (HCC)- Primary [facility] Diagnosis Mixed hyperlipidemia [facility] Diagnosis C. 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 documented in this encounter [facility] note* Diagnosis Diarrhea, unspecified type documented in this encounter [facility] note* Diagnosis Diarrhea, unspecified type documented in this encounter [facility] note* Diagnosis Primary osteoarthritis of both feet- Primary Primary osteoarthritis of both feet documented in this encounter [facility] note* Diagnosis Systemic lupus erythematosus, unspecified SLE type, unspecified organ involvement status ([facility])- Primary High risk medication use Encounter for long-term (current) use of other medications documented in this encounter [facility] note* Diagnosis Diarrhea, unspecified type- Primary documented in this encounter [facility] note* Diagnosis Diarrhea, unspecified type documented in this encounter [facility] note* Diagnosis Ulcer of toe of right foot, limited to breakdown of skin ([facility])- Primary Pre-ulcerative calluses Corns and callosities documented in this encounter [facility] note* Diagnosis Systemic lupus erythematosus, unspecified SLE type, unspecified organ involvement status ([facility])- Primary Need for vaccination against Streptococcus pneumoniae Need for prophylactic vaccination against streptococcus pneumoniae (pneumococcus) documented in this encounter [facility] note* Diagnosis Chronic diastolic heart failure (HCC)- Primary Chronic diastolic heart failure documented in this encounter [facility] note* Diagnosis Ulcer of toe of right foot, limited to breakdown of skin (HCC)- Primary Pre-ulcerative calluses Corns and callosities Cellulitis of second toe of right foot Cellulitis and abscess of toe, unspecified documented in this encounter [facility] note* Diagnosis Systemic lupus erythematosus, unspecified SLE type, unspecified organ involvement status ([facility]) High risk medication use Encounter for long-term (current) use of other medications documented in this encounter [facility] note* Diagnosis IBD (inflammatory bowel disease)- Primary Other and unspecified noninfectious gastroenteritis and colitis documented in this encounter [facility] note* Diagnosis Ulcer of toe of right foot, limited to breakdown of skin (HCC)- Primary Pre-ulcerative calluses Corns and callosities [facility]* Diagnosis Systemic lupus erythematosus, unspecified SLE type, unspecified organ involvement status (HCC)- Primary [facility]* Diagnosis Diarrhea, unspecified type Epigastric pain Abdominal pain, epigastric [facility]* Diagnosis Calculus of gallbladder without cholecystitis without obstruction Calculus of gallbladder without mention of cholecystitis or obstruction [facility]* Diagnosis IBD (inflammatory bowel disease) Other and unspecified noninfectious gastroenteritis and colitis [facility]* Diagnosis Systemic lupus erythematosus, unspecified SLE type, unspecified organ involvement status (HCC)- Primary Thin blood (HCC) Thrombocytopenia, unspecified [facility]* Diagnosis Other ulcerative colitis without complication (HCC)- Primary Gastroesophageal reflux disease without esophagitis Esophageal reflux [facility] this [facility]* Diagnosis Diarrhea, unspecified type documented in this encounter [facility] note* Diagnosis Mixed hyperlipidemia- Primary Hypomagnesemia Disorders of magnesium metabolism documented in this encounter [facility] note* Diagnosis Chronic kidney disease, unspecified CKD stage- Primary Systemic lupus erythematosus, unspecified SLE type, unspecified organ involvement status (HCC) [facility]* Diagnosis Systemic lupus erythematosus, unspecified SLE type, unspecified organ involvement status (HCC)- Primary High risk medication use Encounter for long-term (current) use of other medications [facility]* Diagnosis Pain in left foot- Primary Pain in limb [facility]* Diagnosis Ulcer of toe of right foot, limited to breakdown of skin (HCC)- Primary Pre-ulcerative calluses Corns and callosities Osteoarthritis of midtarsal joint of left foot Osteoarthritis of midtarsal joint of right foot [facility]* Diagnosis Primary osteoarthritis of both feet- Primary Primary osteoarthritis of both feet [facility]* Diagnosis Viral upper respiratory tract infection- Primary Acute upper respiratory infections of unspecified site [facility] Diagnosis Atypical atrial flutter (CMS/HCC)- Primary Paroxysmal atrial fibrillation (CMS/HCC) Atrial fibrillation Essential hypertension Unspecified essential hypertension Obstructive sleep apnea Obstructive sleep apnea (adult) (pediatric) Never smoked any substance Other forms of systemic lupus erythematosus, unspecified organ involvement status (CMS/HCC) Morbid obesity (CMS/HCC) Morbid obesity High risk medication use Dyslipidemia Other and unspecified hyperlipidemia documented in this encounter [facility] Work Phone: Evaluation noteNo assessment information available [facility] Work Phone: Evaluation note* Diagnosis 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 [facility] Diagnosis Systemic lupus erythematosus, unspecified SLE type, unspecified organ involvement status (HCC)- Primary [facility] Diagnosis Pre-ulcerative calluses- Primary Corns and callosities Osteoarthritis of midtarsal joint of left foot Osteoarthritis of midtarsal joint of right foot [facility] Diagnosis Osteopenia, unspecified location- Primary S/P parathyroidectomy Other 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 status [facility] (current) use of 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 Vitamin D deficiency disease Unspecified vitamin D deficiency [facility] Diagnosis 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 [facility] Diagnosis Paroxysmal atrial fibrillation (CMS/HCC)- Primary Atrial fibrillation High risk medication use Essential hypertension Unspecified essential hypertension 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 Obstructive sleep apnea Obstructive sleep apnea (adult) (pediatric) BMI 40.0-44.9, adult (CMS/HCC) Never smoked any substance Systemic lupus erythematosus, unspecified SLE type, unspecified organ involvement status (CMS/HCC) documented in this encounter [facility] Work Phone: Evaluation note* Diagnosis Paroxysmal atrial fibrillation ([facility]/HCC) Atrial fibrillation documented in this encounter [facility] Work Phone: Hospital Discharge instructionsAmbulatory Orders* Initiate Home Health Time Frame: 1 Day, Location: Determined By Patient Additional Instructions Home Health to manage care: - Full code - PT/OT eval and treat - Routine vital signs - Medication management and education - [facility] Work Phone: InstructionsNot on filedocumented in this encounter [facility] filedocumented in this encounter [facility]Not on filedocumented in this encounter [facility] (narrative)* Diagnostic Procedure Only (Routine) - Authorized Specialty Diagnoses / Procedures Referred By Fariba t Referred To Contact MOLECULAR & FUNCTIONAL IMAGING Diagnoses Hyperparathyroidism (HCC) Procedures NM PARATHYROID W SPECT/CT PARATHYROID IMAGING W/TOMOGRAPHIC SPECT & CT Bryan Painting MD [address] [place] [address] Molecular & Functional Imaging [address] [place] [address] Referral ID Status Reason Start Date Expiration Date Visits Requested Visits Authorized [id number] Authorized Auto-Generat ed Referral 07/31/2023 1 1 [facility] for referral (narrative)* Diagnostic Procedure Only (Routine) - Closed Specialty Diagnoses / Procedures Referred By Fariba rowley Referred To Contact MOLECULAR & FUNCTIONAL IMAGING Diagnoses Hyperparathyroidism (HCC) Procedures NM PARATHYROID W SPECT/CT PARATHYROID IMAGING W/TOMOGRAPHIC SPECT & CT Bryan Painting MD [address] [id number] Molecular & Functional Imaging [address] [place] [address] Referral ID Status Reason Start Date Expiration Date V isits Requested Visits Authorized [id number] Closed Auto-Generate d Referral 07/01/2022 07/31/2023 1 1 [facility] for referral (narrative)* Outpatient Procedure (Routine) - Authorized Specialty Diagnoses / Procedures Referred By Fariba t Referred To Contact [facility] Diagnoses IBD (inflammatory bowel disease) Procedures COLONOSCOPY DIAGNOSTIC COLONOSCOPY FLX DX W/COLLJ SPEC WHEN PFRMD Juan Daniel, Dione, MD [address] [place] [address] [address] Referral ID Status Reason Start Date Expiration Date Visits Requested Visits Authorized [id number] Authorized Auto-Generat ed Referral 2023 02/19/2024 1 1 [facility] for referral (narrative)* Outpatient Procedure (Routine) - Closed Specialty Diagnoses / Procedures Referred By Contac t Referred To Contact [facility] Diagnoses Diarrhea, unspecified type Epigastric pain Procedures EGD DIAGNOSTIC ESOPHAGOGASTRODUODENOSC OPY TRANSORAL DIAGNOSTIC Dione Reinoso MD [address] [address] [address] Referral ID Status Reason Start Date Expiration Date V isits Requested Visits Authorized [id number] Closed Auto-Generate d Referral 09/10/2021 09/10/2022 1 1 * Outpatient Procedure (Routine) - Closed Specialty Diagnoses / Procedures Referred By Contac t Referred To [facility] Diagnoses Diarrhea, unspecified type Epigastric pain Procedures COLONOSCOPY DIAGNOSTIC COLONOSCOPY FLX DX W/COLLJ SPEC WHEN Dione Starr MD [address] [address] [address] Referral ID Status Reason Start Date Expiration Date V isits Requested Visits Authorized [id number] Closed Auto-Generate d Referral 09/10/2021 09/10/2022 1 1 [facility] for referral (narrative)* Outpatient Procedure (Routine) - Closed Specialty Diagnoses / Procedures Referred By Contac t Referred To [facility] Diagnoses IBD (inflammatory bowel disease) Procedures COLONOSCOPY DIAGNOSTIC COLONOSCOPY FLX DX W/COLLJ SPEC WHEN Dione Starr MD [address] [place] [address] [facility] [place] [address] [place] [address] Referral ID Status Reason Start Date Expiration Date V isits Requested Visits Authorized [id number] Closed Auto-Generate d Referral 2023 02/19/2024 1 1 [facility] for referral (narrative)* Diagnostic Procedure Only (Routine) - Pending Review Specialty Diagnoses / Procedures Referred By Contac t Referred To Contact XR IMAGING Diagnoses Pain in left foot Procedures XR FOOT GENERAL 3V AP/LAT/OBL LEFT RADEX FOOT COMPLETE MINIMUM 3 VIEWS Beverly Franco, DPM [address] [place] [address] [place] [address] Referral ID Status Reason Start Date Expiration Date Visits Requested Visits Authorized [id number] Pending Review Auto-Generat ed Referral 3 07/31/2024 1 1 [facility] for referral (narrative)* Diagnostic Procedure Only (Routine) - Pending Review Specialty Diagnoses / Procedures Referred By Contac t Referred To Contact XR IMAGING Diagnoses Osteopenia, unspecified location S/P parathyroidectomy [facility] (current) use of 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 Vitamin D deficiency disease Procedures DXA-AXIAL SKELETON WITH VFA DXA BONE DENSITY STUDY AXIAL SKELETON Julia Ann PA-C [address] [address] [place] [address] Referral ID Status Reason Start Date Expiration Date Visits Requested Visits Authorized [id number] Pending Review Auto-Generat ed Referral 10/13/2023 11/11/2024 1 1 [facility] for visit Narrative* Diagnostic Procedure Only (Routine) - Closed Specialty Diagnoses / Procedures Referred By Contac t Referred To Contact MOLECULAR & FUNCTIONAL IMAGING Diagnoses Hyperparathyroidism (HCC) Procedures NM PARATHYROID W SPECT/CT PARATHYROID IMAGING W/TOMOGRAPHIC SPECT & CT Bryan Painting MD [address] [place] [address] Molecular & Functional Imaging [address] [id number] Referral ID Status Reason Start Date Expiration Date V isits Requested Visits Authorized [id number] Closed Auto-Generate d Referral 07/01/2022 07/31/2023 1 1 [facility] for visit Narrative* Outpatient Procedure (Routine) - Closed Specialty Diagnoses / Procedures Referred By Contac t Referred To Contact [facility] Diagnoses Diarrhea, unspecified type Epigastric pain Procedures EGD DIAGNOSTIC ESOPHAGOGASTRODUODENOSC OPY TRANSORAL DIAGNOSTIC Dione Reinoso MD [address] [place] [address] [address] Referral ID Status Reason Start Date Expiration Date V isits Requested Visits Authorized [id number] Closed Auto-Generate d Referral 09/10/2021 09/10/2022 1 1 [facility] for visit Narrative* Outpatient Procedure (Routine) - Closed Specialty Diagnoses / Procedures Referred By Contgale t Referred To Contact [facility] Diagnoses IBD (inflammatory bowel disease) Procedures COLONOSCOPY DIAGNOSTIC COLONOSCOPY FLX DX W/COLLJ SPEC WHEN PFRMD Dione Reinoso MD [address] [place] [address] [address] Referral ID Status Reason Start Date Expiration Date V isits Requested Visits Authorized [id number] Closed Auto-Generate d Referral 2023 02/19/2024 1 1 [facility] Summary Purpose Family History No Family History Records Found Relationship Condition Age at Onset Recorded Date/T [...] on: Mother, Father(V17.49, Z82.49) Status:Active Advance Directives No Advanced Directives Records FoundDocuments on File Type Date Recorded 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 Advance Directive(s) Advance Directive(s) 10/25/2021 [...] Documents on File Type Date Recorded 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 Advance Directive(s) Advance Directive(s) 10/25/2021 [...] Advance Directives No June 18, 2017 4:00pm Advance Directive Response Recorded Date/ Time Advance Directives No June 18, 2017 3:00pm Medications Administered Section Inactive Administered Medications - [...] mg, ORAL, ONCE, 1 dose, On Theresa 03/13/22 at 1200 Given 03/13/2022 11:58 AM EDT 1,000 mg belimumab 1,000 mg in NaCl 0.9% 250 mL (BENLYSTA) 1,000 mg, INTRAVENOUS, at 250 mL/hr, Administer over 60 Minutes, ONCE, 1 dose, On [facility] 03/13/22 at 1200, 8 hour expiration time: --- [...] 1,000 mg, ORAL, ONCE, 1 dose, On [facility] 06/12/22 at 1300 Given 06/12/2022 12:50 PM EDT 1,000 mg belimumab 1,000 mg in NaCl 0.9% 250 mL (BENLYSTA) 1,000 mg, INTRAVENOUS, at 250 mL/hr, Administer over 60 Minutes, ONCE, 1 dose, On [facility] 06/12/22 at 1300, 8 hour expiration time: --- Protect From Light --- Total Volume: 250 mL Protect From Light New Bag/Syringe/Bottle 06/12/2022 1:28 PM EDT 1,000 mg 125 mL/hr methylPREDNISolone sod succinate(PF) 60 mg injection (SOLU-Medrol) 60 mg, INTRAVENOUS, ONCE, 1 dose, On [facility] 06/12/22 at 1300 Given 06/12/2022 1:00 [...] 60 mg, INTRAVENOUS, ONCE, 1 dose, On Thu12/15/22 at 1000 Given 12/15/2022 10:19 AM EDT [...] Date Dose Rate Site benzocaine 20% 1 Daggett (TOPEX) 1 Daggett, TOPICAL, DIRECTED, Starting on Thu09/12/21 at 0800, Until Thu09/12/21 at 1159, DOSING DIRECTED BY PHYSICIAN FOR PROCEDURAL SEDATION ONLY - Pharmaceutical Waste: Aerosol -, Intraprocedure Given 09/12/2021 7:43 AM EST 1 Daggett NaCl 0.9% iv infusion 30 mL/hr, INTRAVENOUS, CONTINUOUS, Starting on Thu09/12/21 at 0730, Until Thu09/12/21 at 0702, Preprocedure New Bag/Syringe/Bottle 09/12/2021 7:20 AM EST 30 mL/hr 30 mL/hr Inactive Administered Medications - up to 3 most recent administrations Medication Order MAR Action Action Date Dose Rate Site NaCl 0.9% iv infusion 30 mL/hr, INTRAVENOUS, CONTINUOUS, Starting on Thu04/02/23 at 0730, Until Thu04/02/23 at 0900, Preprocedure New Bag/Syringe/Bottle 04/02/2023 7:16 [...] apnea) HLD (hyperlipidemia) HTN (hypertension) Chief Complaint afib Reason for Referral Specialty Diagnoses / Procedures Referred By Contac t Referred To Contact Diagnoses High risk medication use Systemic lupus erythematosus, unspecified SLE type, unspecified organ involvement status (HCC) Evelin Abel MD [address] [place] [address] Referral ID Status Reason Start Date Expiration Date Visits Re quested Visits Authorized [id number] Closed 1 1 Specialty Diagnoses / Procedures Referred By Fariba t Referred To Contact MR IMAGING Diagnoses Hypertrophic obstructive cardiomyopathy (HCC) Procedures MRI CARDIAC VELOCITY FLOW MAP CARDIAC MRI FOR VELOCITY FLOW MAPPING Mann Ramos MD [address] [id number] Mr Imaging Referral ID Status Reason Start Date Expiration Date Visits Requested Visits Authorized [id number] Pending Review Auto-Generat ed Referral 03/27/2022 04/26/2023 1 1 Specialty Diagnoses / Procedures Referred By Fariba t Referred To Contact MR IMAGING Diagnoses Hypertrophic obstructive cardiomyopathy (HCC) Procedures MRI CARDIAC MORPH FUNC WO/W IVCON CARDIAC MRI W/WO CONTRAST & FURTHER SEQ Mann Ramos MD [address] [place] [address] Mr Imaging Referral ID Status Reason Start Date Expiration Date Visits Requested Visits Authorized [id number] Pending Review Auto-Generat ed Referral 03/27/2022 04/26/2023 1 1 Specialty Diagnoses / Procedures Referred By Contac t Referred To [facility] Diagnoses Hypertrophic obstructive cardiomyopathy (HCC) Procedures ECHO ECHO TTHRC R-T 2D W/WOM-MODE COMPL SPEC&COLR D Mann Ramos MD [address] [facility] [place] [address] [facility] [place] [phone] Referral ID Status Reason Start Date Expiration Date Visits Requested Visits Authorized [id number] Pending Review Auto-Generat ed Referral 03/27/2022 03/27/2023 1 1 Specialty Diagnoses / Procedures Referred By Contac t Referred To [facility] Diagnoses Hypertrophic obstructive cardiomyopathy (HCC) Procedures ECG COMPLETE ECG ROUTINE ECG W/LEAST 12 LDS W/I&R Mann Ramos MD [address] [place] [address] [facility] [place] [phone] Referral ID Status Reason Start Date Expiration Date Visits Requested Visits Authorized [id number] Pending Review Auto-Generat ed Referral 03/27/2022 03/27/2023 1 1 Specialty Diagnoses / Procedures Referred By Contac t Referred To Contact Endocrinology Diagnoses Hypercalcemia Hyperparathyroid (HCC) Procedures CONSULT TO ENDOCRINOLOGY OFFICE/OUTPATIENT [facility] 60-74 MINUTES Julia Peña PA-C [address] [place] [address] Referral ID Status Reason Start Date Expiration Date Visits Requested Visits Authorized [id number] Authorized PCP Requested Referral 05/12/2022 05/12/2023 1 1 Specialty Diagnoses / Procedures Referred By Contac t Referred To Contact Diagnoses Hypercalcemia Hyperparathyroid (HCC) Procedures CONSULT TO ENDOCRINE SURGERY OFFICE/OUTPATIENT [facility] 60-74 MINUTES Lemuel Bejarano V, MD [address] [place] [phone] Referral ID Status Reason Start Date Expiration Date Visits Requested Visits Authorized [id number] Authorized PCP Requested Referral 06/11/2023 1 1 Specialty Diagnoses / Procedures Referred By Contac t Referred To Contact Nephrology Diagnoses Chronic kidney disease, unspecified CKD stage Systemic lupus erythematosus, unspecified SLE type, unspecified organ involvement status (HCC) Procedures CONSULT TO NEPHROLOGY OFFICE/OUTPATIENT [facility] 60-74 MINUTES Nadege Hawkins DO [address], [address] [place] [address] Referral ID Status Reason Start Date Expiration Date Visits Requested Visits Authorized [id number] Authorized PCP Requested Referral 04/27/2023 04/26/2024 1 1 Specialty Diagnoses / Procedures Referred By Contac t Referred To Contact Cardiology Diagnoses Paroxysmal atrial fibrillation (CMS/HCC) Procedures Cardioversion External Yuriy Conway MD [address] [facility] 2, Will [address] [place] [phone] Referral ID Status Reason Start Date Expiration Date V isits Requested Visits Authorized [id number] Pending Review 09/17/2023 09/16/2024 1 1 Specialty Diagnoses / Procedures Referred By Contac t Referred To Contact Diagnoses Paroxysmal atrial fibrillation (CMS/HCC) Procedures ECG 12 Lead Yuriy Conway MD [address] [place] [address] [facility], Will [address] [place] [address] Referral ID Status Reason Start Date Expiration Date V isits Requested Visits Authorized [id number] Authorized 09/17/2023 09/16/2024 1 1 Specialty Diagnoses / Procedures Referred By Contac t Referred To Contact Cardiology Diagnoses Paroxysmal atrial fibrillation (CMS/HCC) Procedures Follow Up In Cardiology Yuriy Conway MD [address] [place] [address] [facility], Will [address] [place] [address] Yuriy Conway MD [address] [place] [address] [facility], Will [address] [place] [address] Referral ID Status Reason Start Date Expiration Date V isits Requested Visits Authorized [id number] Authorized 09/17/2023 09/16/2024 1 1 Specialty Diagnoses / Procedures Referred By Contac t Referred To Contact MR IMAGING Diagnoses Pancreatic cyst Procedures MRI 3D POST PROCESSING 3D RENDERING W/INTERP&POSTPROC DIFF WORK STATION Rima Mcallister APRN.BLOWER INSULATOR [address] [place] [address] Mr Imaging [place] [address] Referral ID Status Reason Start Date Expiration Date Visits Requested Visits Authorized [id number] Pending Review Auto-Generat ed Referral 09/30/2023 10/29/2024 1 1 Specialty Diagnoses / Procedures Referred By Contac t Referred To Contact MR IMAGING Diagnoses Pancreatic cyst Procedures MRI PANC/JEANIE WO/W IVCON MRI ABDOMEN W/O & W/CONTRAST MATERIAL Rima Mcallister, ANTONIO.BLOWER INSULATOR [address] [place] [address] Mr Imaging [place] [address] Referral ID Status Reason Start Date Expiration Date Visits Requested Visits Authorized [id number] Pending Review Auto-Generat ed Referral 09/30/2023 10/29/2024 1 1 Referral ID Status Reason Start Date Expiration Date V isits Requested Visits Authorized [id number] Closed Auto-Generate d Referral 09/30/2023 10/29/2024 1 1 Referral ID Status Reason Start Date Expiration Date V isits Requested Visits Authorized [id number] Authorized 10/29/2023 10/28/2024 1 1 Specialty Diagnoses / Procedures Referred By Contac t Referred To Contact Cardiology Diagnoses Paroxysmal atrial fibrillation (CMS/HCC) Yuriy Conway MD [address] [place] [address], [place] [phone] [place] [address] [place] [address] Referral ID Status Reason Start Date Expiration Date Visits Requested Visits Authorized [id number] Authorized Specialty Services Required 10/29/2023 10/28/2024 1 1 Referral ID Status Reason Start Date Expiration Date V isits Requested Visits Authorized [id number] Authorized 10/29/2023 10/28/2024 1 1 Referral ID Status Reason Start Date Expiration Date V isits Requested Visits Authorized [id number] Authorized 10/29/2023 10/28/2024 1 1 Chief Complaint JESUS WOLF is being seen for an annual follow-up of.* JESUS WOLF is being seen for an annual follow-up of. * Patient is in the office after more than 2 years hiatus where [facility] She is in need for cardiac clearance prior to surgery. The patient has done well in thelast couple of years but was not very happy with the care she was receiving at the [facility]. She had ablation for atrial fibrillation couple years back at [facility] with Dr. Chino with no recurrences. She is not on antiarrhythmic therapy but has been on anticoagulation with Eliquis. She has no indication previous coronary heart disease but never had a stress test or cardiac catheterization. Her last echocardiogram from September 2021 at the [facility] revealed mildly dila manjinder ascending aorta at [...] radiofrequency ablation with pulmonary vein isolation at [facility] in 2019. She will continue on Eliquis [...] 8. Systemic Lupus managed by rheumatology at [facility] on multiple medications and stable * 9. [...] * Yuriy Conway MD, FACC * JESUS HEATHT is being seen for an annual follow-up of. * Patient is in the office after more than 2 years hiatus where [facility]. She is in need for cardiac clearance prior to surgery. The patient has done well in thelast couple of years but was not very happy with the care she was receiving at the [facility]. She had ablation for atrial fibrillation couple years back at [facility] with Dr. Chino with no recurrences. She is not on antiarrhythmic therapy but has been on anticoagulation with Eliquis. She has no indication previous coronary heart disease but never had a stress test or cardiac catheterization. Her last echocardiogram from September 2021 at the [facility] revealed mildly dila manjinder ascending aorta at [...] radiofrequency ablation with pulmonary vein isolation at [facility] in 2019. She will continue on Eliquis [...] 8. Systemic Lupus managed by rheumatology at [facility] on multiple medications and stable * 9. [...] years hiatus where [facility]. She is in need for cardiac clearance prior to surgery. The patient has done well in thelast couple of years but was not very happy with the care she was receiving at the [facility]. She had ablation for atrial fibrillation couple years back at [facility] with Dr. Chino with no recurrences. She is not on antiarrhythmic therapy but has been on anticoagulation with Eliquis. She has no indication previous coronary heart disease but never had a stress test or cardiac catheterization. Her last echocardiogram from September 2021 at the [facility] revealed mildly dila manjinder ascending aorta at [...] radiofrequency ablation with pulmonary vein isolation at [facility] in 2019. She will continue on Eliquis [...] 8. Systemic Lupus managed by rheumatology at [facility] on multiple medications and stable * 9. [...] and keeping past medication was advised. * Yan M. Conway, MD, [facility] Health Concerns Infection Onset Date Last Indicated Resolved Time C. difficile 12/25/2022 12/25/2022 Additional Source Comments INFORMATION SOURCE (unrecogn ized section and content) DATE CREATED AUTHOR 10/21/2018 [facility] Healthcare DATE CREATED AUTHOR AUTHOR'S ORGANIZ ATION 12/22/2020 [facility] DATE CREATED AUTHOR AUTHOR'S ORGANIZ ATION 04/30/2021 Marquez Sully [facility] DATE CREATED AUTHOR AUTHOR'S ORGANIZ ATION 09/10/2021 [facility] DATE CREATED AUTHOR AUTHOR'S ORGANIZ ATION 08/08/2022 [facility] DATE CREATED AUTHOR AUTHOR'S ORGANIZ ATION 08/08/2022 [facility] DATE CREATED AUTHOR AUTHOR'S ORGANIZ ATION 09/23/2022 [facility] DATE CREATED AUTHOR AUTHOR'S ORGANIZ ATION 12/18/2022 [facility] DATE CREATED AUTHOR AUTHOR'S ORGANIZ ATION 08/28/2023 [facility] DATE CREATED AUTHOR AUTHOR'S ORGANIZ ATION 09/03/2023 [facility] DATE CREATED AUTHOR AUTHOR'S ORGANIZ ATION 09/27/2023 [facility] DATE CREATED AUTHOR AUTHOR'S ORGANIZ ATION 10/24/2023 [facility] DATE CREATED AUTHOR AUTHOR'S ORGANIZ ATION 10/29/2023 [facility] DATE CREATED AUTHOR AUTHOR'S ORGANIZ ATION 11/09/2023 [facility] Amb[facility] Source Comments (unrecognize d section and content) In the event this informatio n is protected by the Federal Confidentiality of Alcohol and Drug Abuse Patient Records regulations: The Federal rules restrict any use of the information to criminally investigate or prosecute any alcohol or drug abuse patient.[facility] the event this information is protected by the Federal Confidentiality of Alcohol and Drug Abuse Patient Records regulations: The Federal rules restrict any use of the information to criminally investigate or prosecute any alcohol or drug abuse patient.[facility] the event this information is protected by the Federal Confidentiality of Alcohol and Drug Abuse Patient Records regulations: The Federal rules restrict any use of the information to criminally investigate or prosecute any alcohol or drug abuse patient.[facility] the event this information is protected by the Federal Confidentiality of Alcohol and Drug Abuse Patient Records regulations: The Federal rules restrict any use of the information to criminally investigate or prosecute any alcohol or drug abuse patient.[facility] the event this information is protected by the Federal Confidentiality of Alcohol and Drug Abuse Patient Records regulations: The Federal rules restrict any use of the information to criminally investigate or prosecute any alcohol or drug abuse patient.[facility] CenterIn the event this information is protected by the Federal Confidentiality of Alcohol and Drug Abuse Patient Records regulations: The Federal rules restrict any use of the information to criminally investigate or prosecute any alcohol or drug abuse patient.[facility] CenterIn the event this information is protected by the Federal Confidentiality of Alcohol and Drug Abuse Patient Records regulations: The Federal rules restrict any use of the information to criminally investigate or prosecute any alcohol or drug abuse patient.[facility] CenterIn the event this information is protected by the Federal Confidentiality of Alcohol and Drug Abuse Patient Records regulations: The Federal rules restrict any use of the information to criminally investigate or prosecute any alcohol or drug abuse patient.[facility] CenterIn the event this information is protected by the Federal Confidentiality of Alcohol and Drug Abuse Patient Records regulations: The Federal rules restrict any use of the information to criminally investigate or prosecute any alcohol or drug abuse patient.[facility] CenterIn the event this information is protected by the Federal Confidentiality of Alcohol and Drug Abuse Patient Records regulations: The Federal rules restrict any use of the information to criminally investigate or prosecute any alcohol or drug abuse patient.[facility] CenterIn the event this information is protected by the Federal Confidentiality of Alcohol and Drug Abuse Patient Records regulations: The Federal rules restrict any use of the information to criminally investigate or prosecute any alcohol or drug abuse patient.[facility] CenterIn the event this information is protected by the Federal Confidentiality of Alcohol and Drug Abuse Patient Records regulations: The Federal rules restrict any use of the information to criminally investigate or prosecute any alcohol or drug abuse patient.[facility] CenterIn the event this information is protected by the Federal Confidentiality of Alcohol and Drug Abuse Patient Records regulations: The Federal rules restrict any use of the information to criminally investigate or prosecute any alcohol or drug abuse patient.[facility] CenterIn the event this information is protected by the Federal Confidentiality of Alcohol and Drug Abuse Patient Records regulations: The Federal rules restrict any use of the information to criminally investigate or prosecute any alcohol or drug abuse patient.[facility] CenterIn the event this information is protected by the Federal Confidentiality of Alcohol and Drug Abuse Patient Records regulations: The Federal rules restrict any use of the information to criminally investigate or prosecute any alcohol or drug abuse patient.[facility] CenterIn the event this information is protected by the Federal Confidentiality of Alcohol and Drug Abuse Patient Records regulations: The Federal rules restrict any use of the information to criminally investigate or prosecute any alcohol or drug abuse patient.[facility] CenterIn the event this information is protected by the Federal Confidentiality of Alcohol and Drug Abuse Patient Records regulations: The Federal rules restrict any use of the information to criminally investigate or prosecute any alcohol or drug abuse patient.[facility] CenterIn the event this information is protected by the Federal Confidentiality of Alcohol and Drug Abuse Patient Records regulations: The Federal rules restrict any use of the information to criminally investigate or prosecute any alcohol or drug abuse patient.[facility] CenterIn the event this information is protected by the Federal Confidentiality of Alcohol and Drug Abuse Patient Records regulations: The Federal rules restrict any use of the information to criminally investigate or prosecute any alcohol or drug abuse patient.[facility] CenterIn the event this information is protected by the Federal Confidentiality of Alcohol and Drug Abuse Patient Records regulations: The Federal rules restrict any use of the information to criminally investigate or prosecute any alcohol or drug abuse patient.[facility] CenterIn the event this information is protected by the Federal Confidentiality of Alcohol and Drug Abuse Patient Records regulations: The Federal rules restrict any use of the information to criminally investigate or prosecute any alcohol or drug abuse patient.[facility] CenterIn the event this information is protected by the Federal Confidentiality of Alcohol and Drug Abuse Patient Records regulations: The Federal rules restrict any use of the information to criminally investigate or prosecute any alcohol or drug abuse patient.[facility] CenterIn the event this information is protected by the Federal Confidentiality of Alcohol and Drug Abuse Patient Records regulations: The Federal rules restrict any use of the information to criminally investigate or prosecute any alcohol or drug abuse patient.[facility] CenterIn the event this information is protected by the Federal Confidentiality of Alcohol and Drug Abuse Patient Records regulations: The Federal rules restrict any use of the information to criminally investigate or prosecute any alcohol or drug abuse patient.[facility] CenterIn the event this information is protected by the Federal Confidentiality of Alcohol and Drug Abuse Patient Records regulations: The Federal rules restrict any use of the information to criminally investigate or prosecute any alcohol or drug abuse patient.[facility] CenterIn the event this information is protected by the Federal Confidentiality of Alcohol and Drug Abuse Patient Records regulations: The Federal rules restrict any use of the information to criminally investigate or prosecute any alcohol or drug abuse patient.[facility] CenterIn the event this information is protected by the Federal Confidentiality of Alcohol and Drug Abuse Patient Records regulations: The Federal rules restrict any use of the information to criminally investigate or prosecute any alcohol or drug abuse patient.[facility] CenterIn the event this information is protected by the Federal Confidentiality of Alcohol and Drug Abuse Patient Records regulations: The Federal rules restrict any use of the information to criminally investigate or prosecute any alcohol or drug abuse patient.[facility] CenterIn the event this information is protected by the Federal Confidentiality of Alcohol and Drug Abuse Patient Records regulations: The Federal rules restrict any use of the information to criminally investigate or prosecute any alcohol or drug abuse patient.[facility] CenterIn the event this information is protected by the Federal Confidentiality of Alcohol and Drug Abuse Patient Records regulations: The Federal rules restrict any use of the information to criminally investigate or prosecute any alcohol or drug abuse patient.[facility] CenterIn the event this information is protected by the Federal Confidentiality of Alcohol and Drug Abuse Patient Records regulations: The Federal rules restrict any use of the information to criminally investigate or prosecute any alcohol or drug abuse patient.[facility] CenterIn the event this information is protected by the Federal Confidentiality of Alcohol and Drug Abuse Patient Records regulations: The Federal rules restrict any use of the information to criminally investigate or prosecute any alcohol or drug abuse patient.[facility] CenterIn the event this information is protected by the Federal Confidentiality of Alcohol and Drug Abuse Patient Records regulations: The Federal rules restrict any use of the information to criminally investigate or prosecute any alcohol or drug abuse patient.[facility] CenterIn the event this information is protected by the Federal Confidentiality of Alcohol and Drug Abuse Patient Records regulations: The Federal rules restrict any use of the information to criminally investigate or prosecute any alcohol or drug abuse patient.[facility] CenterIn the event this information is protected by the Federal Confidentiality of Alcohol and Drug Abuse Patient Records regulations: The Federal rules restrict any use of the information to criminally investigate or prosecute any alcohol or drug abuse patient.[facility] CenterIn the event this information is protected by the Federal Confidentiality of Alcohol and Drug Abuse Patient Records regulations: The Federal rules restrict any use of the information to criminally investigate or prosecute any alcohol or drug abuse patient.[facility] CenterIn the event this information is protected by the Federal Confidentiality of Alcohol and Drug Abuse Patient Records regulations: The Federal rules restrict any use of the information to criminally investigate or prosecute any alcohol or drug abuse patient.[facility] CenterIn the event this information is protected by the Federal Confidentiality of Alcohol and Drug Abuse Patient Records regulations: The Federal rules restrict any use of the information to criminally investigate or prosecute any alcohol or drug abuse patient.[facility] CenterIn the event this information is protected by the Federal Confidentiality of Alcohol and Drug Abuse Patient Records regulations: The Federal rules restrict any use of the information to criminally investigate or prosecute any alcohol or drug abuse patient.[facility] CenterIn the event this information is protected by the Federal Confidentiality of Alcohol and Drug Abuse Patient Records regulations: The Federal rules restrict any use of the information to criminally investigate or prosecute any alcohol or drug abuse patient.[facility] CenterIn the event this information is protected by the Federal Confidentiality of Alcohol and Drug Abuse Patient Records regulations: The Federal rules restrict any use of the information to criminally investigate or prosecute any alcohol or drug abuse patient.[facility] CenterIn the event this information is protected by the Federal Confidentiality of Alcohol and Drug Abuse Patient Records regulations: The Federal rules restrict any use of the information to criminally investigate or prosecute any alcohol or drug abuse patient.[facility] CenterIn the event this information is protected by the Federal Confidentiality of Alcohol and Drug Abuse Patient Records regulations: The Federal rules restrict any use of the information to criminally investigate or prosecute any alcohol or drug abuse patient.[facility] CenterIn the event this information is protected by the Federal Confidentiality of Alcohol and Drug Abuse Patient Records regulations: The Federal rules restrict any use of the information to criminally investigate or prosecute any alcohol or drug abuse patient.[facility] CenterIn the event this information is protected by the Federal Confidentiality of Alcohol and Drug Abuse Patient Records regulations: The Federal rules restrict any use of the information to criminally investigate or prosecute any alcohol or drug abuse patient.[facility] CenterIn the event this information is protected by the Federal Confidentiality of Alcohol and Drug Abuse Patient Records regulations: The Federal rules restrict any use of the information to criminally investigate or prosecute any alcohol or drug abuse patient.[facility] CenterIn the event this information is protected by the Federal Confidentiality of Alcohol and Drug Abuse Patient Records regulations: The Federal rules restrict any use of the information to criminally investigate or prosecute any alcohol or drug abuse patient.[facility] CenterIn the event this information is protected by the Federal Confidentiality of Alcohol and Drug Abuse Patient Records regulations: The Federal rules restrict any use of the information to criminally investigate or prosecute any alcohol or drug abuse patient.[facility] CenterIn the event this information is protected by the Federal Confidentiality of Alcohol and Drug Abuse Patient Records regulations: The Federal rules restrict any use of the information to criminally investigate or prosecute any alcohol or drug abuse patient.[facility] CenterIn the event this information is protected by the Federal Confidentiality of Alcohol and Drug Abuse Patient Records regulations: The Federal rules restrict any use of the information to criminally investigate or prosecute any alcohol or drug abuse patient.[facility] CenterIn the event this information is protected by the Federal Confidentiality of Alcohol and Drug Abuse Patient Records regulations: The Federal rules restrict any use of the information to criminally investigate or prosecute any alcohol or drug abuse patient.[facility] CenterIn the event this information is protected by the Federal Confidentiality of Alcohol and Drug Abuse Patient Records regulations: The Federal rules restrict any use of the information to criminally investigate or prosecute any alcohol or drug abuse patient.[facility] CenterIn the event this information is protected by the Federal Confidentiality of Alcohol and Drug Abuse Patient Records regulations: The Federal rules restrict any use of the information to criminally investigate or prosecute any alcohol or drug abuse patient.[facility] CenterIn the event this information is protected by the Federal Confidentiality of Alcohol and Drug Abuse Patient Records regulations: The Federal rules restrict any use of the information to criminally investigate or prosecute any alcohol or drug abuse patient.[facility] CenterIn the event this information is protected by the Federal Confidentiality of Alcohol and Drug Abuse Patient Records regulations: The Federal rules restrict any use of the information to criminally investigate or prosecute any alcohol or drug abuse patient.[facility] CenterIn the event this information is protected by the Federal Confidentiality of Alcohol and Drug Abuse Patient Records regulations: The Federal rules restrict any use of the information to criminally investigate or prosecute any alcohol or drug abuse patient.[facility] CenterIn the event this information is protected by the Federal Confidentiality of Alcohol and Drug Abuse Patient Records regulations: The Federal rules restrict any use of the information to criminally investigate or prosecute any alcohol or drug abuse patient.[facility] CenterIn the event this information is protected by the Federal Confidentiality of Alcohol and Drug Abuse Patient Records regulations: The Federal rules restrict any use of the information to criminally investigate or prosecute any alcohol or drug abuse patient.[facility] CenterIn the event this information is protected by the Federal Confidentiality of Alcohol and Drug Abuse Patient Records regulations: The Federal rules restrict any use of the information to criminally investigate or prosecute any alcohol or drug abuse patient.[facility] CenterIn the event this information is protected by the Federal Confidentiality of Alcohol and Drug Abuse Patient Records regulations: The Federal rules restrict any use of the information to criminally investigate or prosecute any alcohol or drug abuse patient.[facility] CenterIn the event this information is protected by the Federal Confidentiality of Alcohol and Drug Abuse Patient Records regulations: The Federal rules restrict any use of the information to criminally investigate or prosecute any alcohol or drug abuse patient.[facility] CenterIn the event this information is protected by the Federal Confidentiality of Alcohol and Drug Abuse Patient Records regulations: The Federal rules restrict any use of the information to criminally investigate or prosecute any alcohol or drug abuse patient.[facility] CenterIn the event this information is protected by the Federal Confidentiality of Alcohol and Drug Abuse Patient Records regulations: The Federal rules restrict any use of the information to criminally investigate or prosecute any alcohol or drug abuse patient.[facility] CenterIn the event this information is protected by the Federal Confidentiality of Alcohol and Drug Abuse Patient Records regulations: The Federal rules restrict any use of the information to criminally investigate or prosecute any alcohol or drug abuse patient.[facility] CenterIn the event this information is protected by the Federal Confidentiality of Alcohol and Drug Abuse Patient Records regulations: The Federal rules restrict any use of the information to criminally investigate or prosecute any alcohol or drug abuse patient.[facility] CenterIn the event this information is protected by the Federal Confidentiality of Alcohol and Drug Abuse Patient Records regulations: The Federal rules restrict any use of the information to criminally investigate or prosecute any alcohol or drug abuse patient.[facility] CenterIn the event this information is protected by the Federal Confidentiality of Alcohol and Drug Abuse Patient Records regulations: The Federal rules restrict any use of the information to criminally investigate or prosecute any alcohol or drug abuse patient.[facility] CenterIn the event this information is protected by the Federal Confidentiality of Alcohol and Drug Abuse Patient Records regulations: The Federal rules restrict any use of the information to criminally investigate or prosecute any alcohol or drug abuse patient.[facility] CenterIn the event this information is protected by the Federal Confidentiality of Alcohol and Drug Abuse Patient Records regulations: The Federal rules restrict any use of the information to criminally investigate or prosecute any alcohol or drug abuse patient.[facility] CenterIn the event this information is protected by the Federal Confidentiality of Alcohol and Drug Abuse Patient Records regulations: The Federal rules restrict any use of the information to criminally investigate or prosecute any alcohol or drug abuse patient.[facility] CenterIn the event this information is protected by the Federal Confidentiality of Alcohol and Drug Abuse Patient Records regulations: The Federal rules restrict any use of the information to criminally investigate or prosecute any alcohol or drug abuse patient.[facility] CenterIn the event this information is protected by the Federal Confidentiality of Alcohol and Drug Abuse Patient Records regulations: The Federal rules restrict any use of the information to criminally investigate or prosecute any alcohol or drug abuse patient.[facility] CenterIn the event this information is protected by the Federal Confidentiality of Alcohol and Drug Abuse Patient Records regulations: The Federal rules restrict any use of the information to criminally investigate or prosecute any alcohol or drug abuse patient.[facility] CenterIn the event this information is protected by the Federal Confidentiality of Alcohol and Drug Abuse Patient Records regulations: The Federal rules restrict any use of the information to criminally investigate or prosecute any alcohol or drug abuse patient.[facility] CenterIn the event this information is protected by the Federal Confidentiality of Alcohol and Drug Abuse Patient Records regulations: The Federal rules restrict any use of the information to criminally investigate or prosecute any alcohol or drug abuse patient.[facility] CenterIn the event this information is protected by the Federal Confidentiality of Alcohol and Drug Abuse Patient Records regulations: The Federal rules restrict any use of the information to criminally investigate or prosecute any alcohol or drug abuse patient.[facility] CenterIn the event this information is protected by the Federal Confidentiality of Alcohol and Drug Abuse Patient Records regulations: The Federal rules restrict any use of the information to criminally investigate or prosecute any alcohol or drug abuse patient.[facility] CenterIn the event this information is protected by the Federal Confidentiality of Alcohol and Drug Abuse Patient Records regulations: The Federal rules restrict any use of the information to criminally investigate or prosecute any alcohol or drug abuse patient.[facility] CenterIn the event this information is protected by the Federal Confidentiality of Alcohol and Drug Abuse Patient Records regulations: The Federal rules restrict any use of the information to criminally investigate or prosecute any alcohol or drug abuse patient.[facility] CenterIn the event this information is protected by the Federal Confidentiality of Alcohol and Drug Abuse Patient Records regulations: The Federal rules restrict any use of the information to criminally investigate or prosecute any alcohol or drug abuse patient.[facility] CenterIn the event this information is protected by the Federal Confidentiality of Alcohol and Drug Abuse Patient Records regulations: The Federal rules restrict any use of the information to criminally investigate or prosecute any alcohol or drug abuse patient.[facility] CenterIn the event this information is protected by the Federal Confidentiality of Alcohol and Drug Abuse Patient Records regulations: The Federal rules restrict any use of the information to criminally investigate or prosecute any alcohol or drug abuse patient.[facility] CenterIn the event this information is protected by the Federal Confidentiality of Alcohol and Drug Abuse Patient Records regulations: The Federal rules restrict any use of the information to criminally investigate or prosecute any alcohol or drug abuse patient.[facility] CenterIn the event this information is protected by the Federal Confidentiality of Alcohol and Drug Abuse Patient Records regulations: The Federal rules restrict any use of the information to criminally investigate or prosecute any alcohol or drug abuse patient.[facility] CenterIn the event this information is protected by the Federal Confidentiality of Alcohol and Drug Abuse Patient Records regulations: The Federal rules restrict any use of the information to criminally investigate or prosecute any alcohol or drug abuse patient.[facility] CenterIn the event this information is protected by the Federal Confidentiality of Alcohol and Drug Abuse Patient Records regulations: The Federal rules restrict any use of the information to criminally investigate or prosecute any alcohol or drug abuse patient.[facility] CenterIn the event this information is protected by the Federal Confidentiality of Alcohol and Drug Abuse Patient Records regulations: The Federal rules restrict any use of the information to criminally investigate or prosecute any alcohol or drug abuse patient.[facility] CenterIn the event this information is protected by the Federal Confidentiality of Alcohol and Drug Abuse Patient Records regulations: The Federal rules restrict any use of the information to criminally investigate or prosecute any alcohol or drug abuse patient.[facility] CenterIn the event this information is protected by the Federal Confidentiality of Alcohol and Drug Abuse Patient Records regulations: The Federal rules restrict any use of the information to criminally investigate or prosecute any alcohol or drug abuse patient.[facility] CenterIn the event this information is protected by the Federal Confidentiality of Alcohol and Drug Abuse Patient Records regulations: The Federal rules restrict any use of the information to criminally investigate or prosecute any alcohol or drug abuse patient.[facility] CenterIn the event this information is protected by the Federal Confidentiality of Alcohol and Drug Abuse Patient Records regulations: The Federal rules restrict any use of the information to criminally investigate or prosecute any alcohol or drug abuse patient.[facility] CenterIn the event this information is protected by the Federal Confidentiality of Alcohol and Drug Abuse Patient Records regulations: The Federal rules restrict any use of the information to criminally investigate or prosecute any alcohol or drug abuse patient.[facility] CenterIn the event this information is protected by the Federal Confidentiality of Alcohol and Drug Abuse Patient Records regulations: The Federal rules restrict any use of the information to criminally investigate or prosecute any alcohol or drug abuse patient.[facility] CenterIn the event this information is protected by the Federal Confidentiality of Alcohol and Drug Abuse Patient Records regulations: The Federal rules restrict any use of the information to criminally investigate or prosecute any alcohol or drug abuse patient.[facility] CenterIn the event this information is protected by the Federal Confidentiality of Alcohol and Drug Abuse Patient Records regulations: The Federal rules restrict any use of the information to criminally investigate or prosecute any alcohol or drug abuse patient.[facility] CenterIn the event this information is protected by the Federal Confidentiality of Alcohol and Drug Abuse Patient Records regulations: The Federal rules restrict any use of the information to criminally investigate or prosecute any alcohol or drug abuse patient.[facility] CenterIn the event this information is protected by the Federal Confidentiality of Alcohol and Drug Abuse Patient Records regulations: The Federal rules restrict any use of the information to criminally investigate or prosecute any alcohol or drug abuse patient.[facility] CenterIn the event this information is protected by the Federal Confidentiality of Alcohol and Drug Abuse Patient Records regulations: The Federal rules restrict any use of the information to criminally investigate or prosecute any alcohol or drug abuse patient.[facility] CenterIn the event this information is protected by the Federal Confidentiality of Alcohol and Drug Abuse Patient Records regulations: The Federal rules restrict any use of the information to criminally investigate or prosecute any alcohol or drug abuse patient.[facility] CenterIn the event this information is protected by the Federal Confidentiality of Alcohol and Drug Abuse Patient Records regulations: The Federal rules restrict any use of the information to criminally investigate or prosecute any alcohol or drug abuse patient.[facility] CenterIn the event this information is protected by the Federal Confidentiality of Alcohol and Drug Abuse Patient Records regulations: The Federal rules restrict any use of the information to criminally investigate or prosecute any alcohol or drug abuse patient.[facility]In the event this information is protected by the Federal Confidentiality of Alcohol and Drug Abuse Patient Records regulations: The Federal rules restrict any use of the information to criminally investigate or prosecute any alcohol or drug abuse patient.[facility] CenterIn the event this information is protected by the Federal Confidentiality of Alcohol and Drug Abuse Patient Records regulations: The Federal rules restrict any use of the information to criminally investigate or prosecute any alcohol or drug abuse patient.[facility] CenterIn the event this information is protected by the Federal Confidentiality of Alcohol and Drug Abuse Patient Records regulations: The Federal rules restrict any use of the information to criminally investigate or prosecute any alcohol or drug abuse patient.[facility] CenterIn the event this information is protected by the Federal Confidentiality of Alcohol and Drug Abuse Patient Records regulations: The Federal rules restrict any use of the information to criminally investigate or prosecute any alcohol or drug abuse patient.[facility] CenterIn the event this information is protected by the Federal Confidentiality of Alcohol and Drug Abuse Patient Records regulations: The Federal rules restrict any use of the information to criminally investigate or prosecute any alcohol or drug abuse patient.[facility] CenterIn the event this information is protected by the Federal Confidentiality of Alcohol and Drug Abuse Patient Records regulations: The Federal rules restrict any use of the information to criminally investigate or prosecute any alcohol or drug abuse patient.[facility] CenterIn the event this information is protected by the Federal Confidentiality of Alcohol and Drug Abuse Patient Records regulations: The Federal rules restrict any use of the information to criminally investigate or prosecute any alcohol or drug abuse patient.[facility] CenterIn the event this information is protected by the Federal Confidentiality of Alcohol and Drug Abuse Patient Records regulations: The Federal rules restrict any use of the information to criminally investigate or prosecute any alcohol or drug abuse patient.[facility] CenterIn the event this information is protected by the Federal Confidentiality of Alcohol and Drug Abuse Patient Records regulations: The Federal rules restrict any use of the information to criminally investigate or prosecute any alcohol or drug abuse patient.[facility] CenterIn the event this information is protected by the Federal Confidentiality of Alcohol and Drug Abuse Patient Records regulations: The Federal rules restrict any use of the information to criminally investigate or prosecute any alcohol or drug abuse patient.[facility] CenterIn the event this information is protected by the Federal Confidentiality of Alcohol and Drug Abuse Patient Records regulations: The Federal rules restrict any use of the information to criminally investigate or prosecute any alcohol or drug abuse patient.[facility] CenterIn the event this information is protected by the Federal Confidentiality of Alcohol and Drug Abuse Patient Records regulations: The Federal rules restrict any use of the information to criminally investigate or prosecute any alcohol or drug abuse patient.[facility] CenterIn the event this information is protected by the [facility] Confidentiality of Alcohol and Drug Abuse Patient Records regulations: The Federal rules restrict any use of the information to criminally investigate or prosecute any alcohol or drug abuse patient.[facility] CenterIn the event this information is protected by the Federal Confidentiality of Alcohol and Drug Abuse Patient Records regulations: The Federal rules restrict any use of the information to criminally investigate or prosecute any alcohol or drug abuse patient.[facility] Care Teams (unrecognized sec tion and content) [employer] Mechanic Relationship Specialty Start Date End Date Wojciech Treviño [address] [place] [address] PCP - General 01/18/10 Diesel Truck Mechanic Relationship Specialty Start Date End Date Wojciech Treviño [address] [place] [address] PCP - General 01/18/10 Diesel Truck Mechanic Relationship Specialty Start Date End Date Wojciech Treviño [address] [place] [id number] PCP - General 01/18/10 Diesel Truck Mechanic Relationship Specialty Start Date End Date Wojciech Treviño DO [address] [place] [address] PCP - General 01/18/10 Diesel Truck Mechanic Relationship Specialty Start Date End Date Wojciech Treviño DO [address] [place] [address] PCP - General 01/18/10 Diesel Truck Mechanic Relationship Specialty Start Date End Date Wojciech Treviño, DO [address] [place] [address] PCP - General 01/18/10 Diesel Truck Mechanic Relationship Specialty Start Date End Date Wojciech Treviño, [address] [place] [address] PCP - General 01/18/10 Diesel Truck Mechanic Relationship Specialty Start Date End Date Wojciech Treviño, DO [address] [place] [address] PCP - General 01/18/10 Team Status: Active Member Role Status Dates Wojciech KlineDO mike Primary Care Provider Active Chapincito Lee DO Family Provider Active Chapincito Barraza MD Emergency Provider Active Hussain Cat MD Admit Provider, Attending Chad zuniga Active Team Status: Active Member Role Status Dates Chapincito Lee DO Family Provider Active Wojciech Eliudmike DO Primary Care Provider Active Team Status: Inactive Member Role Status Dates Wojciech Eliudmike , DO Primary Care Provider Active Chapincito Lee DO Family Provider Active Chapincito Barraza MD Emergency Provider Active Hussain Cat MD Admit Provider, Attending Chad zuniga Active Rachelle Frazier , Other Provider Active Team Status: Inactive Member Role Status Dates Wojciech Treviño , Primary Care Provider Active Chapincito Lee , DO Family Provider Active Petey Junior , DO Emergency Provider Active [employer] Truck Mechanic Relationship Specialty Start Date End Date Wojciech Treviño, DO [address] [place] [address] PCP - General 01/18/10 Diesel Truck Mechanic Relationship Specialty Start Date End Date Wojciech Treviño, DO [address] [place] [address] PCP - General 01/18/10 Diesel Truck Mechanic Relationship Specialty Start Date End Date Wojciech Treviño, DO [address] [place] [address] PCP - General 01/18/10 Diesel Truck Mechanic Relationship Specialty Start Date End Date Wojciech Treviño, DO [address] [place] [address] PCP - General 01/18/10 Diesel Truck Mechanic Relationship Specialty Start Date End Date Wojciech Treviño, DO [address] [place] [address] PCP - General 01/18/10 Diesel Truck Mechanic Relationship Specialty Start Date End Date Wojciech Treviño, DO [address] [place] [address] PCP - General 01/18/10 Diesel Truck Mechanic Relationship Specialty Start Date End Date Wojciech Treviño, DO [address] [place] [address] PCP - General 01/18/10 Diesel Truck Mechanic Relationship Specialty Start Date End Date Wojciech Treviño, DO [address] [place] [address] PCP - General 01/18/10 Diesel Truck Mechanic Relationship Specialty Start Date End Date Wojciech Treviño, DO [address] [place] [address] PCP - General 01/18/10 Diesel Truck Mechanic Relationship Specialty Start Date End Date Wojciech Treviño, DO [address] [place] [address] PCP - General 01/18/10 Diesel Truck Mechanic Relationship Specialty Start Date End Date Wojciech Treviño, DO [address] [place] [address] PCP - General 01/18/10 Diesel Truck Mechanic Relationship Specialty Start Date End Date Wojciech Treviño, DO [address] [place] [address] PCP - General 01/18/10 Diesel Truck Mechanic Relationship Specialty Start Date End Date Wojciech Treviño, DO [address] [place] [address] PCP - General 01/18/10 Diesel Truck Mechanic Relationship Specialty Start Date End Date Wojciech Treviño, DO [address] [place] [address] PCP - General 01/18/10 Diesel Truck Mechanic Relationship Specialty Start Date End Date Wojciech Treviño, DO [address] [place] [address] PCP - General 01/18/10 Diesel Truck Mechanic Relationship Specialty Start Date End Date Wojciech Treviño, DO [address] [place] [address] PCP - General 01/18/10 Diesel Truck Mechanic Relationship Specialty Start Date End Date Wojciech Treviño, DO [address] [place] [address] PCP - General 01/18/10 Diesel Truck Mechanic Relationship Specialty Start Date End Date Wojciech Treviño, DO [address] [place] [address] PCP - General 01/18/10 Diesel Truck Mechanic Relationship Specialty Start Date End Date Wojciech Treviño, DO [address] [place], [place] [address] PCP - General 01/18/10 Diesel Truck Mechanic Relationship Specialty Start Date End Date Wojciech Treviño, DO [address] [place] [address] PCP - General 01/18/10 Diesel Truck Mechanic Relationship Specialty Start Date End Date Wojciech Treviño, DO [address] [place] [address] PCP - General 01/18/10 Diesel Truck Mechanic Relationship Specialty Start Date End Date Wojciech Treviño, DO [address] [place] [address] PCP - General 01/18/10 Diesel Truck Mechanic Relationship Specialty Start Date End Date Wojciech Treviño, DO [address] [place] [address] PCP - General 01/18/10 Diesel Truck Mechanic Relationship Specialty Start Date End Date Wojciech Treviño DO [address] [place] [address] PCP - General 01/18/10 Diesel Truck Mechanic Relationship Specialty Start Date End Date Wojciech Treviño DO [address] [place] [address] PCP - General 01/18/10 Diesel Truck Mechanic Relationship Specialty Start Date End Date Wojciech Treviño DO [address] [place] [address] PCP - General 01/18/10 Diesel Truck Mechanic Relationship Specialty Start Date End Date Wojciech Treviño DO [address] [place] [address] PCP - General 01/18/10 Diesel Truck Mechanic Relationship Specialty Start Date End Date Wojciech Treviño DO [address] [place] [address] PCP - General 01/18/10 Diesel Truck Mechanic Relationship Specialty Start Date End Date Wojciech Treviño DO [address] [place] [address] PCP - General 01/18/10 Diesel Truck Mechanic Relationship Specialty Start Date End Date Wojciech Treviño DO [address] [place] [address] PCP - General 01/18/10 Diesel Truck Mechanic Relationship Specialty Start Date End Date Wojciech Treviño DO [address] [place] [address] PCP - General 01/18/10 Diesel Truck Mechanic Relationship Specialty Start Date End Date Wojciech Treviño DO [address] [place] [address] PCP - General 01/18/10 Diesel Truck Mechanic Relationship Specialty Start Date End Date Wojciech Treviño DO [address] [place] [address] PCP - General 01/18/10 Diesel Truck Mechanic Relationship Specialty Start Date End Date Wojciech Treviño DO [address] [place] [address] PCP - General 01/18/10 Diesel Truck Mechanic Relationship Specialty Start Date End Date Wojciech Treviño DO [address] [place] [address] PCP - General 01/18/10 Diesel Truck Mechanic Relationship Specialty Start Date End Date Wojciech Treviño DO [address] [place] [address] PCP - General 01/18/10 Diesel Truck Mechanic Relationship Specialty Start Date End Date Wojciech Treviño DO [address] [place] [address] PCP - General 01/18/10 Diesel Truck Mechanic Relationship Specialty Start Date End Date Wojciech Treviño DO [address] [place] [address] PCP - General 01/18/10 Diesel Truck Mechanic Relationship Specialty Start Date End Date Wojciech Treviño DO [address] [place] [address] PCP - General 01/18/10 Diesel Truck Mechanic Relationship Specialty Start Date End Date Wojciech Treviño DO [address] [place] [address] PCP - General 01/18/10 Diesel Truck Mechanic Relationship Specialty Start Date End Date Luís Jo, [facility] [address] [place] [address] PCP - General Internal Medicine 04/15/23 Diesel Truck Mechanic Relationship Specialty Start Date End Date Roccochristiano Jo, [facility] [address] [place] [address] PCP - General Internal Medicine 04/15/23 Diesel Truck Mechanic Relationship Specialty Start Date End Date Wojciech Treviño DO [address] [place] [address] PCP - General 01/27/19 Diesel Truck Mechanic Relationship Specialty Start Date End Date Jania Saeed, 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 [address] [place] [address] PCP - General Internal Medicine 04/15/23 Team Status: Inactive Member Role Status Dates Wojciech Treviño DO Primary Care Provider Active Start: September 21, 2023 End: September 21, 2023 Yuriy Conway MD Attending Provider, Referring Provider Active Start: September 21, 2023 End: September 21, 2023 Diesel Truck Mechanic Relationship Specialty Start Date End Date Jania Saeed, 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 [address] [place] [address] PCP - General Internal Medicine 04/15/23 Diesel Truck Mechanic Relationship Specialty Start Date End Date Wojciech rTeviño DO [address] [place] [address] PCP - General 01/18/10 Diesel Truck Mechanic Relationship Specialty Start Date End Date Wojciech Treviño DO [address] [place] [address] PCP - General 01/18/10 Diesel Truck Mechanic Relationship Specialty Start Date End Date Wojciech Treviño DO [address] [place] [address] PCP - General 01/18/10 Diesel Truck Mechanic Relationship Specialty Start Date End Date Wojciech Treviño DO [address] [place] [address] PCP - General 01/18/10 Diesel Truck Mechanic Relationship Specialty Start Date End Date Wojciech Treviño DO [address] [place] [address] PCP - General 01/18/10 Diesel Truck Mechanic Relationship Specialty Start Date End Date Wojciech Treviño DO [address] [place] [address] PCP - General 01/18/10 Diesel Truck Mechanic Relationship Specialty Start Date End Date Wojciech Treviño DO [address] [place] [address] PCP - General 01/27/19 Yuriy Cnoway MD [address] [facility] 2, [facility] [address] [place] [address] Consulting Physician Cardiology 09/17/23 Diesel Truck Mechanic Relationship Specialty Start Date End Date Wojciech Treviño DO [address] [place] [address] PCP - General 01/27/19 Yuriy Conway MD [address] [facility], [place] [address] [place] [address] Consulting Physician Cardiology 09/17/23 Reason for Visit (unrecogniz ed section and content) Reason Comments SLE Specialty Diagnoses / Procedures Referred By Contgale t Referred To Contact RHEUMATOLOGY INFUSION Diagnoses Systemic lupus erythematosus, unspecified M32.9 (ICD-10-CM) - Systemic lupus erythematosus, unspecified Procedures BELIMUMAB INJECTION THER/PROPH/DIAG IV INF, INIT THER/PROPH/DIAG IV INF ADDON IV BENLYSTA [id number] Evelin Abel MD [address] [place] [address] Rheu Infusion Main [address] [place] [address] Referral ID Status Reason Start Date Expiration Date V isits Requested Visits Authorized [id number] Authorized 04/02/2020 08/16/2022 99 99 Reason Onset [...] Hyperparathyroid (HCC) Procedures CONSULT TO ENDOCRINOLOGY OFFICE/OUTPATIENT NEW HIGH MDM 60-74 MINUTES Julia Peña PA-C [address] [place] [address] Referral ID Status Reason Start Date Expiration Date V isits Requested Visits Authorized [id number] Closed PCP Requested Referral 05/12/2022 05/12/2023 1 1 Reason Comments Consult Face Sheet Reason Comments Radiology NM Specialty Diagnoses / Procedures Referred By Contac t Referred To Contact MOLECULAR & FUNCTIONAL IMAGING Diagnoses Hyperparathyroidism (HCC) Procedures NM PARATHYROID W SPECT/CT PARATHYROID IMAGING W/TOMOGRAPHIC SPECT & CT Bryan Painting MD [address] [place] [address] Molecular & Functional Imaging [address] [place] [address] Referral ID Status Reason Start Date Expiration Date V isits Requested Visits Authorized [id number] Closed Auto-Generate d Referral 07/01/2022 07/31/2023 1 1 Reason Comments Radiology NM Specialty Diagnoses / Procedures Referred By Contac t Referred To Contact MOLECULAR & FUNCTIONAL IMAGING Diagnoses Hyperparathyroidism (HCC) Procedures NM PARATHYROID W SPECT/CT PARATHYROID IMAGING W/TOMOGRAPHIC SPECT & CT Bryan Painting MD [address] [place] [address] Molecular & Functional Imaging [address] [place] [id number] Reason Comments Thyroid Problem Specialty Diagnoses / Procedures Referred By Fariba t Referred To Contact Diagnoses Hypercalcemia Hyperparathyroid (HCC) Procedures CONSULT TO ENDOCRINE SURGERY OFFICE/OUTPATIENT [facility] 60-74 MINUTES Lemuel Bejarano V, MD [address] [place] [id number] Referral ID Status Reason Start Date Expiration Date V isits Requested Visits Authorized [id number] Closed PCP Requested Referral 06/11/2022 06/11/2023 1 1 Reason Comments Anesthesia Consult Hyperparathyroidism Reason Comments 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 She states that she had parathyroid surgery since her last infusion. She has had a follow up apt with her PCP, and her incision is healed. She was not on any antibiotics for this procedure. She denies having been sick or on any recent antibiotics. Reason Comments Infusion Specialty Diagnoses / Procedures Referred By Fariba rowley Referred To Contact RHEUMATOLOGY INFUSION Diagnoses Systemic lupus erythematosus, unspecified M32.9 (ICD-10-CM) - Systemic lupus erythematosus, unspecified Procedures BELIMUMAB INJECTION THER/PROPH/DIAG IV INF, INIT THER/PROPH/DIAG IV INF ADDON IV BENLYSTA [id number] Evelin Abel MD [address] [place] [address] Rheu Infusion Main [address] [place] [id number] Reason Onset Date Comments Refill Request 09/21/2022 [...] over a week Reason Comments Med Refill Reason Comments Annual Exam Specialty Diagnoses / Procedures Referred By Contac t Referred To Contact Diagnoses Paroxysmal atrial fibrillation (CMS/HCC) Procedures ECG 12 Lead Yuriy Conway MD [address] [place] [address] 2, [address] [address] Referral ID Status Reason Start Date Expiration Date V isits Requested Visits Authorized [id number] Authorized 09/17/2023 09/16/2024 1 1 Reason Comments Orders Reason Comments Callous Bilateral foot Specialty Diagnoses / Procedures Referred By Contac t Referred To Contact MR IMAGING Diagnoses Pancreatic cyst Procedures MRI PANC/JEANIE WO/W IVCON MRI ABDOMEN W/O & W/CONTRAST MATERIAL Rima Mcallister, ANTONIO.BLOWER INSULATOR [address] [place] [id number] Mr Imaging [place] [address] Referral ID Status Reason Start Date Expiration Date V isits Requested Visits Authorized [id number] Closed Auto-Generate d Referral 09/30/2023 10/29/2024 1 1 Reason Comments Follow-up [facility] Specialty Diagnoses / Procedures Referred By Contac t Referred To Contact Cardiology Diagnoses Paroxysmal atrial fibrillation (CMS/HCC) Procedures Follow Up In Cardiology Yuriy Conway MD [address] [place] [address] 2, [address] [address] Yuriy Conway MD [address] [place] [address] 2, [address] [address] Referral ID Status Reason Start Date Expiration Date V isits Requested Visits Authorized [id number] Authorized 09/17/2023 09/16/2024 1 1 Reason Comments EKG Visit Specialty Diagnoses / Procedures Referred By Contac t Referred To Contact Diagnoses Paroxysmal atrial fibrillation (CMS/HCC) Procedures ECG 12 Lead Yuriy Conway MD [address] [place] [address] 2, [address] [address] Referral ID Status Reason Start Date Expiration Date V isits Requested Visits Authorized [id number] Authorized 10/29/2023 10/28/2024 1 1 Goals (unrecognized section and content) Goals may be documented in a n alternate section Inactive Administered Medications - up to 3 most recent administrations Administered Medications (un recognized section and content) Medication Order MAR Action Action Date Dose Rate Site acetaminophen 1,000 mg tab(s) (TYLENOL) 1,000 mg, ORAL, ONCE, 1 dose, On Theresa 10/01/23 at 0930 Given 10/01/2023 9:40 AM EST 1,000 mg belimumab 1,000 mg in NaCl 0.9% 250 mL (BENLYSTA) 1,000 mg, INTRAVENOUS, at 125 mL/hr, Administer over 120 Minutes, ONCE, 1 dose, On Theresa 10/01/23 at 0930, EXP: 1600 10/01/23 --- Protect From Light --- Total Volume: 250 mL Protect From Light New Bag/Syringe/Bottle 10/01/2023 10:17 AM EST 1,000 mg 125 mL/hr methylPREDNISolone sod succinate(PF) 60 mg injection (SOLU-Medrol) 60 mg, INTRAVENOUS, ONCE, 1 dose, On Theresa 10/01/23 at 0930 Given 10/01/2023 10:17 AM EST 60 mg Inactive Administered Medications - up to 3 most recent administrations Medication Order MAR Action Action Date Dose Rate Site ALPRAZolam 0.5 mg tab(s) (XANAX) 0.5 mg, ORAL, ONCE, 1 dose, On Thu10/23/23 at 1200 Given 10/23/2023 11:52 AM EST 0.5 mg FOR RECORDS PERTAINING TO PATIENTS WHO ARE [...] BE BASED ON THE PRIMARY CLINICAL RECORDS. [facility]. provides no warranty or guarantee of the accuracy or completeness of information in this document.
[2023-11-10 12:59] LABS: Basophils Percent Auto 0.5 % (0.2-2.0); Eosinophils Absolute Auto 0.1 10^3/uL (0.0-0.7); Eosinophils Percent Auto 1.6 % (0.9-7.0); Hematocrit 43.5 % (36.0-48.0); Hemoglobin 14.3 g/dL (12.0-16.0); Immature Granulocytes Abs Auto 0.01 10^3/uL (0.00-0.03); Immature Granulocytes Pct Auto 0.1 % (0.0-0.5); Lymphocytes Absolute Auto 1.6 10^3/uL (1.2-3.8); Lymphocytes Percent Auto 21.9 % (20.5-60.0); Mean Corpuscular HGB Conc 32.9 g/dL (29.9-35.2); Mean Corpuscular Hemoglobin 31.5 pg (26.7-34.0); Mean Corpuscular Volume 95.8 fL (81.0-99.0); Mean Platelet Volume 10.6 fL (9.5-13.5); Monocytes Absolute Auto 0.7 10^3/uL (0.3-0.8); Monocytes Percent Auto 9.3 % (1.7-12.0); Neutrophils Absolute Auto 4.9 10^3/uL (1.4-6.5); Neutrophils Percent Auto 66.6 % (43.0-75.0); Platelet Count 226 10^3/uL (150-450); Red Blood Count 4.54 10^6/uL (4.20-5.40); Red Cell Distribution Width 13.8 % (11.0-15.0); White Blood Count 7.4 10^3/uL (4.0-11.0)
[2023-11-10] MEDS: SILVER NITRATE APPLICATOR STICK 1 APPLIC TOPICAL (13:12)
[2023-11-10] MEDS: COCAINE NS (13:12)
[2023-11-10 13:14] LABS: INR 1.15; Prothrombin Time 12.1 sec (9.0-11.6)
[2023-11-10 13:19] LABS: Alanine Aminotransferase 32 U/L (14-59); Albumin Globulin Ratio 1.2; Albumin Level 3.6 g/dL (3.4-5.0); Alkaline Phosphatase 101 U/L (46-116); Anion Gap 16.7; Aspartate Amino Transferase 22 U/L (15-37); BUN Creatinine Ratio 26.4; Bilirubin Total 0.8 mg/dL (0.2-1.0); Carbon Dioxide 24.7 mmol/L (21.0-32.0); Chloride 105 mmol/L (98-107); Estimated GFR (African America 50 (>=60); Estimated GFR (Non-African Ame 41 (>=60); Globulin 3.1 g/dL; Glucose 97 mg/dL (74-106); Potassium 4.4 mmol/L (3.5-5.1); Sodium 142 mmol/L (136-145); Total Protein 6.7 g/dL (6.4-8.2); Troponin I High Sensitivity 9.9 pg/mL (4.0-51.3)
[2023-11-10] MEDS: WATER FOR INJECTION, STERILE 20 ML VIAL INJ (13:59)
[2023-11-10] MEDS: CIPROFLOXACIN/HYDROCORTISONE 0.2%/1% OTIC SUSP 200 DROP/10 ML BOTTLE OT (13:59)
[2023-11-10] MEDS: DILTIAZEM HCL 25 MG/5 ML VIAL 15 MG IV (14:28)
--- NOTE | 2023-11-10 14:40 | ECG_ITS ---
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
--- NOTE | 2023-11-10 14:53 | ED_ITS ---
HPI - Arrhythmia/Palpitations General Chief Complaint: Arrhythmia/Palpitations Stated Complaint: NOSE BLEEDING Time Seen by Provider: 11/10/23 12:44 Source: patient Mode of arrival: walk-in History of Present Illness HPI narrative: This patient presents emergency room today with complaint of nasal epistaxis. Has been on the left side. It was present starting Thursday it stopped yesterday but came back again this morning early. She is taking the blood thinner Eliquis for her chronic atrial fibs. In fact she saw her electric switch repairer yesterday and she is planning on having her second ablation procedure in at [facility] next Thursday. She has been pliant with all her medications. She took all of her meds this morning including the Eliquis and her beta-girish. She is not having any other bleeding today. She has never had to have cautery of her nasal area. She has no other complaints today except she knew she was in atrial fibs which she was yesterday and she has a bloody nose today. Related Data Home Medications ?Medication ?Instructions ?Recorded ?Confirmed alendronate 70 mg tablet 70 mg PO .weekly 07/27/23 11/10/23 apixaban 5 mg tablet (Eliquis) 5 mg PO Q12H 07/27/23 11/10/23 atorvastatin 40 mg tablet 40 mg PO QDAY 07/27/23 11/10/23 buspirone 10 mg tablet 10 mg PO .at bedtime 07/27/23 11/10/23 celecoxib 200 mg capsule 200 mg PO Q24H 07/27/23 11/10/23 cholecalciferol (vitamin D3) 50 50 mcg PO DAILY 07/27/23 11/10/23 mcg (2,000 unit) tablet (D3 DOTS) cholestyramine (with sugar) 4 gram 1 ea PO TID 07/27/23 11/10/23 oral powder (Questran) colestipol 1 gram tablet 2 g PO BID 07/27/23 11/10/23 ferrous sulfate 325 mg (65 mg 325 mg PO QDAY 07/27/23 11/10/23 iron) tablet (FeroSul) furosemide 20 mg tablet 40 mg PO QDAY 07/27/23 11/10/23 hydroxychloroquine 200 mg tablet 200 mg PO BID 07/27/23 11/10/23 levothyroxine 75 mcg tablet 75 mcg PO QDAY 07/27/23 11/10/23 mesalamine 1.2 gram tablet,delayed 4.8 g PO Q24H 07/27/23 11/10/23 release metoprolol succinate 50 mg 50 mg PO .COMPLEX 07/27/23 11/10/23 tablet,extended release 24 hr pantoprazole 40 mg tablet,delayed 40 mg PO Q12H 07/27/23 11/10/23 release spironolactone 50 mg tablet 50 mg PO DAILY 07/27/23 11/10/23 sucralfate 100 mg/mL oral 10 ml PO QID 07/27/23 11/10/23 suspension (Carafate) venlafaxine 150 mg 150 mg PO DAILY 07/27/23 11/10/23 capsule,extended release 24 hr (Effexor XR) levothyroxine 50 mcg tablet 50 mcg PO DAILY 11/10/23 11/10/23 Allergies Allergy/AdvReac Type Severity Reaction Status Date / Time codeine AdvReac Intermediate Verified 07/27/23 16:53 diphtheria,pertussis AdvReac Intermediate Verified 07/27/23 16:53 (acellular),te [From Boostrix Tdap] prochlorperazine AdvReac Intermediate Verified 07/27/23 16:53 [From Compazine] Sulfa (Sulfonamide AdvReac Intermediate Verified 07/27/23 16:53 Antibiotics) iv contrast AdvReac Intermediate Uncoded 07/27/23 16:53 sulfa AdvReac Intermediate Uncoded 07/27/23 16:53 tykesen AdvReac Intermediate Uncoded 07/27/23 16:53 PFSH PFSH Social History Smoking status: Never smoker Exam Narrative Exam Narrative: Awake alert [place] x 3 normal cognition and mental medicine. Her vital are no on arrival she did have some tachycardia. Fact her heart rate initially was approximately 127 with atrial fibrillation. Her skin is warm and dry there is no pallor or clamminess diaphoresis or jaundice on evaluation of her skin. HEENT shows have some bleeding both anterior and she has got some blood in the posterior pharynx. There is no blood in the right nares. Her conjunctiva is moist and pink. Her airway is intact and there is no stridor. Nasal packing/clip was applied on arrival here in the ER. Constitutional Vital Signs, click to edit/add: Last Vital Signs Pulse 67 11/10/23 15:30 Resp 17 11/10/23 15:30 BP 96/66 11/10/23 14:53 Pulse Ox 95 11/10/23 15:30 Course Vital Signs Vital signs: Vital Signs Pulse Rate 139 H 11/10/23 12:18 Respiratory Rate 24 11/10/23 12:18 Blood Pressure 116/87 11/10/23 12:18 Pulse Oximetry 97 11/10/23 12:18 Pulse Rate 67 11/10/23 15:30 Respiratory Rate 17 11/10/23 15:30 Blood Pressure 96/66 11/10/23 14:53 Pulse Oximetry 95 11/10/23 15:30 MDM - Arrhythmia/Palpitations MDM Narrative Medical decision making narrative: Patient presents with nasal epistaxis and still has atrial fibrillation with RPR. We went ahead and treated her nasal epistaxis initially with pressure that was unsuccessful. We then instilled some topical cocaine for approximately 20 minutes and I was able to visualize the left anterior nares and there is no source of the bleeding in the anterior nares on the left side. A nasal tampon was then inserted and insufflated with Cipro otic drops. She tolerated it very well. After approximately 15 minutes the bleeding stopped and she had no more bleeding in the posterior oropharynx. She remained in atrial fibs and so have given her Cardizem 15 mg IV and she had conversion to a sinus rhythm which is what she is in at the time of this dictation. I will contact her electric switch repairer to see if there is any further treatment recommendations as she is on a beta- girish at this time but no calcium channel girish. The patient additionally noted that she was just started on flecainide recently for her atrial flutter. At this time we have not heard from her electric switch repairer but we reevaluated the patient she is doing well. There is no further nasal bleeding. To return in 3 days to remove the packing. We will have her contact her electric switch repairer office for further instructions on medications Lab Data Labs: Lab Results 11/10/23 Range/Units 12:45 WBC 7.4 (4.0-11.0) 10^3/uL RBC 4.54 (4.20-5.40) 10^6/uL Hgb 14.3 (12.0-16.0) g/dL Hct 43.5 (36.0-48.0) % MCV 95.8 (81.0-99.0) fL MCH 31.5 (26.7-34.0) pg MCHC 32.9 (29.9-35.2) g/dL RDW 13.8 (11.0-15.0) % Plt Count 226 (150-450) 10^3/uL MPV 10.6 (9.5-13.5) fL Neut % (Auto) 66.6 (43.0-75.0) % Lymph % (Auto) 21.9 (20.5-60.0) % [place] % (Auto) 9.3 (1.7-12.0) % Eos % (Auto) 1.6 (0.9-7.0) % Baso % (Auto) 0.5 (0.2-2.0) % Neut # (Auto) 4.9 (1.4-6.5) 10^3/uL Lymph # (Auto) 1.6 (1.2-3.8) 10^3/uL [place] # (Auto) 0.7 (0.3-0.8) 10^3/uL Eos # (Auto) 0.1 (0.0-0.7) 10^3/uL Baso # (Auto) 0.0 (0.0-0.1) 10^3/uL Abs Immat Gran (auto) 0.01 (0.00-0.03) 10^3/uL Imm/Tot Granulo (auto) 0.1 (0.0-0.5) % PT 12.1 H (9.0-11.6) sec INR 1.15 Sodium 142 (136-145) mmol/L Potassium 4.4 (3.5-5.1) mmol/L Chloride 105 (98-107) mmol/L Carbon Dioxide 24.7 (21.0-32.0) mmol/L Anion Gap 16.7 BUN 34.0 H (7.0-18.0) mg/dL Creatinine 1.29 H (0.55-1.02) mg/dL Est GFR ( Amer) 50 L (>=60) Est GFR (Non-Af Amer) 41 L (>=60) BUN/Creatinine Ratio 26.4 Glucose 97 (74-106) mg/dL Calcium 9.0 (8.5-10.1) mg/dL Total Bilirubin 0.8 (0.2-1.0) mg/dL AST 22 (15-37) U/L ALT 32 (14-59) U/L Alkaline Phosphatase 101 (46-116) U/L Troponin I High Sens 9.9 (4.0-51.3) pg/mL Total Protein 6.7 (6.4-8.2) g/dL Albumin 3.6 (3.4-5.0) g/dL Globulin 3.1 g/dL Albumin/Globulin Ratio 1.2 Discharge Plan Discharge Stand Alone Forms: Portal Instructions Chief Complaint: Arrhythmia/Palpitations Clinical Impression: Epistaxis Patient Disposition: Home, Self-Care Time of Disposition Decision: 15:38 Prescriptions / Home Meds: No Action atorvastatin 40 mg tablet 40 mg PO QDAY celecoxib 200 mg capsule 200 mg PO Q24H venlafaxine [Effexor XR] 150 mg capsule,extended release 24hr 150 mg PO DAILY hydroxychloroquine 200 mg tablet 200 mg PO BID Patient Comments: with food cholecalciferol (vitamin D3) [D3 DOTS] 50 mcg (2,000 unit) tablet 50 mcg PO DAILY Eliquis 5 mg tablet 5 mg PO Q12H furosemide 20 mg tablet 40 mg PO QDAY mesalamine 1.2 gram tablet,delayed release (DR/EC) 4.8 g PO Q24H buspirone 10 mg tablet 10 mg PO .at bedtime colestipol 1 gram tablet 2 g PO BID ferrous sulfate [FeroSul] 325 mg (65 mg iron) tablet 325 mg PO QDAY levothyroxine 75 mcg tablet 75 mcg PO QDAY metoprolol succinate 50 mg tablet extended release 24 hr 50 mg PO .COMPLEX Rx Instructions: 50 mg orally 1 tablet in the morning and 2 tablets in the evening; pantoprazole 40 mg tablet,delayed release (DR/EC) 40 mg PO Q12H spironolactone 50 mg tablet 50 mg PO DAILY sucralfate [Carafate] 100 mg/mL suspension 10 ml PO QID Rx Instructions: swish in mouth and spit out; use after food and/or drink alendronate 70 mg tablet 70 mg PO .weekly cholestyramine (with sugar) [Questran] 4 gram powder 1 ea PO TID levothyroxine 50 mcg tablet 50 mcg PO DAILY Print Language: Kinyarwanda Additional Instructions: Remove packing 3 days primary care doctor or here. Call your electric switch repairer for further instructions on your medication Referrals: RIO TREVIÑO [Primary Care Provider] - 1 week
== END 2023-11-10 15:51 | disposition home or self-care (01) ==
PROVIDERS: Emergency Provider Emergency Medicine Emergency Medical Services; PCP Family Medicine
DX: R04.0 Epistaxis (principal); I48.91 Unspecified atrial fibrillation; Z79.01 Long term (current) use of anticoagulants; Z79.899 Other long term (current) drug therapy; Z79.890 Hormone replacement therapy
CPT/HCPCS: 30901; 36415; 80053; 84484; 85025; 85610; 93005; 96372; 99285

== ENCOUNTER 2023-11-13 09:15 | Emergency (ER) | payer MEDICARE, OTHER, SELFPAY ==
[2023-11-13 09:18] VITALS: BP 104/87; PULSE 64; TEMP 36.7; O2SAT 98; BMI 26.9
--- NOTE | 2023-11-13 10:03 | ED.GENADUL1 ---
HPI HPI - General Adult General Chief complaint: Recheck/Abnormal Lab/Rx Stated complaint: PACKING REMOVAL Time Seen by Provider: 11/13/23 09:16 Source: patient Mode of arrival: walk-in History of Present Illness HPI narrative: 68-year-old female presented as instructed to have nasal packing removed. She had this placed 3 days ago and she has had no problems since. She has been off of her blood thinner and is to restart it tomorrow per her medical receptionist assistant. She has had no subsequent bleeding. Related Data Home Medications ?Medication ?Instructions ?Recorded ?Confirmed alendronate 70 mg tablet 70 mg PO .weekly 07/27/23 11/10/23 apixaban 5 mg tablet (Eliquis) 5 mg PO Q12H 07/27/23 11/10/23 atorvastatin 40 mg tablet 40 mg PO QDAY 07/27/23 11/10/23 buspirone 10 mg tablet 10 mg PO .at bedtime 07/27/23 11/10/23 celecoxib 200 mg capsule 200 mg PO Q24H 07/27/23 11/10/23 cholecalciferol (vitamin D3) 50 50 mcg PO DAILY 07/27/23 11/10/23 mcg (2,000 unit) tablet (D3 DOTS) cholestyramine (with sugar) 4 gram 1 ea PO TID 07/27/23 11/10/23 oral powder (Questran) colestipol 1 gram tablet 2 g PO BID 07/27/23 11/10/23 ferrous sulfate 325 mg (65 mg 325 mg PO QDAY 07/27/23 11/10/23 iron) tablet (FeroSul) furosemide 20 mg tablet 40 mg PO QDAY 07/27/23 11/10/23 hydroxychloroquine 200 mg tablet 200 mg PO BID 07/27/23 11/10/23 levothyroxine 75 mcg tablet 75 mcg PO QDAY 07/27/23 11/10/23 mesalamine 1.2 gram tablet,delayed 4.8 g PO Q24H 07/27/23 11/10/23 release metoprolol succinate 50 mg 50 mg PO .COMPLEX 07/27/23 11/10/23 tablet,extended release 24 hr pantoprazole 40 mg tablet,delayed 40 mg PO Q12H 07/27/23 11/10/23 release spironolactone 50 mg tablet 50 mg PO DAILY 07/27/23 11/10/23 sucralfate 100 mg/mL oral 10 ml PO QID 07/27/23 11/10/23 suspension (Carafate) venlafaxine 150 mg 150 mg PO DAILY 07/27/23 11/10/23 capsule,extended release 24 hr (Effexor XR) levothyroxine 50 mcg tablet 50 mcg PO DAILY 11/10/23 11/10/23 Allergies Allergy/AdvReac Type Severity Reaction Status Date / Time codeine AdvReac Intermediate Verified 07/27/23 16:53 diphtheria,pertussis AdvReac Intermediate Verified 07/27/23 16:53 (acellular),te [From Boostrix Tdap] prochlorperazine AdvReac Intermediate Verified 07/27/23 16:53 [From Compazine] Sulfa (Sulfonamide AdvReac Intermediate Verified 07/27/23 16:53 Antibiotics) iv contrast AdvReac Intermediate Uncoded 07/27/23 16:53 sulfa AdvReac Intermediate Uncoded 07/27/23 16:53 tykesen AdvReac Intermediate Uncoded 07/27/23 16:53 Opioid HPI Opioid Management Most Recent Opioid Data: Last ED Pain Assessment 07/27/23 17:00 Review of Systems ROS Narrative A ten point review of systems is negative except as noted above. PFSH PFSH Social History Smoking status: Never smoker Exam Narrative Exam Narrative: Nurses note and vital signs reviewed and patient is not hypoxic. General: The patient appears well and in no apparent distress. Patient is resting comfortably on cart. Skin: Warm, dry, no pallor noted. There is no rash noted. Head: Normocephalic, atraumatic Eye: Normal conjunctiva, no drainage Ears, Nose, Mouth, and Throat: oral mucosa is moist. Packing in place in the left nares Cardiovascular: Not tachycardic Respiratory: Patient is in no distress, no accessory muscle use, lungs are clear to auscultation, no wheezing, rales or rhonchi Back: non-tender GI: Soft and nontender Musculoskeletal: The patient has no evidence of calf tenderness, symmetrical pulses noted bilaterally Neurological: A&O, normal speech Psychiatric: Cooperative Constitutional Vital Signs, click to edit/add: Last Vital Signs Temp 98.0 F 11/13/23 09:18 Pulse 64 11/13/23 09:18 Resp 18 11/13/23 09:18 BP 104/87 11/13/23 09:18 Pulse Ox 98 11/13/23 09:18 O2 Del Method Room Air 11/13/23 09:18 Course Vital Signs Vital signs: Vital Signs Temperature 98.0 F 11/13/23 09:18 Pulse Rate 64 11/13/23 09:18 Respiratory Rate 18 11/13/23 09:18 Blood Pressure 104/87 11/13/23 09:18 Pulse Oximetry 98 11/13/23 09:18 Oxygen Delivery Method Room Air 11/13/23 09:18 Temperature 98.0 F 11/13/23 09:18 Pulse Rate 64 11/13/23 09:18 Respiratory Rate 18 11/13/23 09:18 Blood Pressure 104/87 11/13/23 09:18 Pulse Oximetry 98 11/13/23 09:18 Oxygen Delivery Method Room Air 11/13/23 09:18 Medical Decision Making MDM Narrative Medical decision making narrative: I have removed the packing. She had no subsequent epistaxis and she is released. Findings were discussed with the patient. Discharge Plan Discharge Stand Alone Forms: Portal Instructions Chief Complaint: Recheck/Abnormal Lab/Rx Clinical Impression: Encounter for removal of nasal packing Patient Disposition: Home, Self-Care Time of Disposition Decision: 10:02 Condition: Good Mode of Transportation: Private Vehicle Prescriptions / Home Meds: No Action atorvastatin 40 mg tablet 40 mg PO QDAY celecoxib 200 mg capsule 200 mg PO Q24H venlafaxine [Effexor XR] 150 mg capsule,extended release 24hr 150 mg PO DAILY hydroxychloroquine 200 mg tablet 200 mg PO BID Patient Comments: with food cholecalciferol (vitamin D3) [D3 DOTS] 50 mcg (2,000 unit) tablet 50 mcg PO DAILY Eliquis 5 mg tablet 5 mg PO Q12H furosemide 20 mg tablet 40 mg PO QDAY mesalamine 1.2 gram tablet,delayed release (DR/EC) 4.8 g PO Q24H buspirone 10 mg tablet 10 mg PO .at bedtime colestipol 1 gram tablet 2 g PO BID ferrous sulfate [FeroSul] 325 mg (65 mg iron) tablet 325 mg PO QDAY levothyroxine 75 mcg tablet 75 mcg PO QDAY metoprolol succinate 50 mg tablet extended release 24 hr 50 mg PO .COMPLEX Rx Instructions: 50 mg orally 1 tablet in the morning and 2 tablets in the evening; pantoprazole 40 mg tablet,delayed release (DR/EC) 40 mg PO Q12H spironolactone 50 mg tablet 50 mg PO DAILY sucralfate [Carafate] 100 mg/mL suspension 10 ml PO QID Rx Instructions: swish in mouth and spit out; use after food and/or drink alendronate 70 mg tablet 70 mg PO .weekly cholestyramine (with sugar) [Questran] 4 gram powder 1 ea PO TID levothyroxine 50 mcg tablet 50 mcg PO DAILY Print Language: Turkish Instructions: Nosebleed (ED) Referrals: RIO TREVIÑO [Primary Care Provider] - 1 week
== END 2023-11-13 10:09 | disposition home or self-care (01) ==
PROVIDERS: Emergency Provider Emergency Medicine; PCP Family Medicine
DX: Z48.00 Encounter for change or removal of nonsurgical wound dressing (principal); Z79.01 Long term (current) use of anticoagulants; Z79.899 Other long term (current) drug therapy; Z79.890 Hormone replacement therapy
CPT/HCPCS: 99281

== ENCOUNTER 2024-04-01 09:15 | Outpatient (OUT) | payer MEDICARE, OTHER, SELFPAY ==
[2024-04-01 10:08] LABS: Basophils Percent Auto 0.8 % (0.2-2.0); Eosinophils Absolute Auto 0.3 10^3/uL (0.0-0.7); Eosinophils Percent Auto 5.3 % (0.9-7.0); Hematocrit 39.3 % (36.0-48.0); Hemoglobin 12.8 g/dL (12.0-16.0); Immature Granulocytes Abs Auto 0.01 10^3/uL (0.00-0.03); Immature Granulocytes Pct Auto 0.2 % (0.0-0.5); Lymphocytes Percent Auto 20.3 % (20.5-60.0); Mean Corpuscular HGB Conc 32.6 g/dL (29.9-35.2); Mean Corpuscular Hemoglobin 31.9 pg (26.7-34.0); Mean Platelet Volume 10.1 fL (9.5-13.5); Monocytes Absolute Auto 0.6 10^3/uL (0.3-0.8); Monocytes Percent Auto 11.5 % (1.7-12.0); Neutrophils Absolute Auto 3.2 10^3/uL (1.4-6.5); Neutrophils Percent Auto 61.9 % (43.0-75.0); Platelet Count 248 10^3/uL (150-450); Red Blood Count 4.01 10^6/uL (4.20-5.40); Red Cell Distribution Width 13.8 % (11.0-15.0); White Blood Count 5.1 10^3/uL (4.0-11.0)
[2024-04-01 11:17] LABS: Albumin Level 3.4 g/dL (3.4-5.0); Anion Gap 11.7; Calcium 8.9 mg/dL (8.5-10.1); Carbon Dioxide 29.8 mmol/L (21.0-32.0); Chloride 103 mmol/L (98-107); Estimated GFR (African America >60 (>=60); Estimated GFR (Non-African Ame 55 (>=60); Glucose 86 mg/dL (74-106); Phosphorus 3.3 mg/dL (2.6-4.7); Potassium 4.5 mmol/L (3.5-5.1); Sodium 140 mmol/L (136-145)
[2024-04-01 11:41] LABS: Anion Gap 12.7; BUN Creatinine Ratio 16.8; Calcium 8.8 mg/dL (8.5-10.1); Carbon Dioxide 28.8 mmol/L (21.0-32.0); Chloride 103 mmol/L (98-107); Estimated GFR (African America >60 (>=60); Estimated GFR (Non-African Ame 51 (>=60); Glucose 86 mg/dL (74-106); Potassium 4.5 mmol/L (3.5-5.1); Sodium 140 mmol/L (136-145)
== END 2024-04-01 09:16 | disposition home or self-care (01) ==
LOC: LAB 09:16
PROVIDERS: PCP Family Medicine
DX: Z01.818 Encounter for other preprocedural examination (principal); I48.0 Paroxysmal atrial fibrillation; R04.0 Epistaxis; D64.9 Anemia, unspecified
CPT/HCPCS: 36415; 80048; 80069; 85025

== ENCOUNTER 2024-04-14 09:30 | Outpatient (OUT) | payer MEDICARE, OTHER, SELFPAY ==
--- NOTE | 2024-04-14 09:34 | US_ITS ---
The [address] [address] Patient Name: JESUS WOLF MRN: [id number] date: 1955 Sex: F Assigned Patient Location: [facility] Current Patient Location: Accession/Order Number: [id number] Exam Date: 04/14/2024 10:00 Report Date: 04/16/2024 08:37 At the request of: RIO TREVIÑO Procedure: US venous doppler UE LT US venous doppler UE LT, 04/14/2024 10:00 AM EDT INDICATION: Varicose veins left upper extremity COMPARISON: No prior left upper extremity Doppler ultrasound available for comparison at the time of this dictation. TECHNIQUE: Multi-planar real-time ultrasonography of the left upper extremity venous system using grayscale imaging supplemented by color Doppler. Augmentation and compression maneuvers were utilized as needed. FINDINGS: Subclavian vein, axillary, cephalic, radial, ulnar and basilic veins are fully compressible with anterograde flow. There appears to be echogenic thrombus with incomplete compressibility, lack of color Doppler and impaired augmentation response within the left brachial vein. US/US venous doppler UE LT IMPRESSION: Findings concerning for nonocclusive thrombus within the left brachial vein. Electronically authenticated by: GOGO HODGES Date: 04/16/2024 08:37
--- NOTE | 2024-04-14 09:34 | MM_ITS ---
Patient Name: JESUS WOLF MR#: [id number] : 1955 Exam Date: 04/14/2024 Ordering Doctor: DR RIO TREVIÑO RADIOLOGY REPORT PROCEDURE: MM TOMOSYNTHESIS SCREENING BI COMPARISON: MM TOMOSYNTHESIS SCREENING BI, 03/30/2023. INDICATIONS: Screening Calculator Name NCI Breast Cancer Risk Assessment Tool 5 Year Breast Cancer Risk 1.40% Lifetime Breast Cancer Risk 4.40% Personal Breast Cancer No Personal Ovarian Cancer No Treatments None Family Cancers Mother with colon cancer at age 72. LOCATION: The [facility] BREAST COMPOSITION: There are scattered areas of fibroglandular density. FINDINGS: DIAGNOSTIC CATEGORY 2--BENIGN FINDING. NO CHANGE FROM COMPARISON. Scattered benign-appearing calcifications are present. Scattered benign-appearing lymph nodes are present. RIGHT BREAST: No significant suspicious finding. LEFT BREAST: No significant suspicious finding. RECOMMENDATIONS: ROUTINE MAMMOGRAM AND CLINICAL EVALUATION IN 12 MONTHS. PLEASE NOTE: A NORMAL MAMMOGRAM DOES NOT EXCLUDE THE POSSIBILITY OF BREAST CANCER. A CLINICALLY SUSPICIOUS PALPABLE LUMP SHOULD BE BIOPSIED. Dictated by: Cooper Chou MD on 04/14/2024 at 11:23 Approved by: Cooper Chou MD on 04/14/2024 at 11:24
== END 2024-04-14 09:31 | disposition home or self-care (01) ==
LOC: MAMMO 09:30
PROVIDERS: PCP Family Medicine; Visit Provider Family Medicine
DX: Z12.31 Encounter for screening mammogram for malignant neoplasm of breast (principal); I86.8 Varicose veins of other specified sites; R22.0 Localized swelling, mass and lump, head; Z80.0 Family history of malignant neoplasm of digestive organs
CPT/HCPCS: 77063; 77067; 93971

== ENCOUNTER 2024-12-19 14:27 | Outpatient (OUT) | payer MEDICARE, OTHER, SELFPAY ==
--- NOTE | 2024-12-19 14:37 | XR_ITS ---
The [address] [address] Patient Name: JESUS WOLF MRN: [id number] date: 1955 Sex: F Assigned Patient Location: [facility] Current Patient Location: [facility] Accession/Order Number: [id number] Exam Date: 12/19/2024 15:33 Report Date: 12/19/2024 15:33 At the request of: RIO TREVIÑO Procedure: XR ankle RT min 3V RIGHT ANKLE - 3 views CLINICAL HISTORY: Acute Right Ankle Pain, Ankle Swelling COMPARISON: None FINDINGS: Diffuse soft tissue swelling with soft tissue calcifications. Ankle mortise appears intact without acute bony process. Plantar spurring. XR/XR ankle RT min 3V IMPRESSION: DIFFUSE SOFT TISSUE SWELLING WITHOUT ACUTE BONY PROCESS. Impression dictated by: Jose Concepcion Jr., D.OAjay 12/19/2024 3:33 PM Dictation Location: [place] [address] Electronically authenticated by: [id number] Y Date: 12/19/2024 15:33
== END 2024-12-19 14:28 | disposition home or self-care (01) ==
PROVIDERS: PCP Family Medicine; Visit Provider Family Medicine
DX: M25.571 Pain in right ankle and joints of right foot (principal); M25.471 Effusion, right ankle
CPT/HCPCS: 73610

== ENCOUNTER 2025-01-03 17:06 | Emergency (ER) | payer MEDICARE, OTHER, SELFPAY ==
[2025-01-03 17:19] VITALS: BP 120/82; PULSE 85; TEMP 36.8; O2SAT 96; BMI 40.7
--- NOTE | 2025-01-03 17:20 | ED.GENADUL1 ---
HPI HPI - General Adult General Chief complaint: Epistaxis Stated complaint: EPISTAXIS Time Seen by Provider: 01/03/25 17:20 History of Present Illness HPI narrative: Patient is a 69-year-old female who presents to the emergency department today for evaluation concerns for epistaxis. She is here with another family member who endorses over the past 3 to 4 days she has had intermittent episodes of epistaxis. She historically is on Eliquis for A-fib. She reports she began spontaneously having bleeding from her nose this afternoon that she was unable to control so proceeded to the ER. She denies any injuries or trauma. No headaches, vision difficulties, or cough/cold symptoms. Endorse a history of hypertension and states she is compliant with medical therapy for this. Related Data Home Medications ?Medication ?Instructions ?Recorded ?Confirmed alendronate 70 mg tablet 70 mg PO .weekly 07/27/23 11/10/23 apixaban 5 mg tablet (Eliquis) 5 mg PO Q12H 07/27/23 11/10/23 atorvastatin 40 mg tablet 40 mg PO QDAY 07/27/23 11/10/23 buspirone 10 mg tablet 10 mg PO .at bedtime 07/27/23 11/10/23 celecoxib 200 mg capsule 200 mg PO Q24H 07/27/23 11/10/23 cholecalciferol (vitamin D3) 50 50 mcg PO DAILY 07/27/23 11/10/23 mcg (2,000 unit) tablet (D3 DOTS) cholestyramine (with sugar) 4 gram 1 ea PO TID 07/27/23 11/10/23 oral powder (Questran) colestipol 1 gram tablet 2 g PO BID 07/27/23 11/10/23 ferrous sulfate 325 mg (65 mg 325 mg PO QDAY 07/27/23 11/10/23 iron) tablet (FeroSul) furosemide 20 mg tablet 40 mg PO QDAY 07/27/23 11/10/23 hydroxychloroquine 200 mg tablet 200 mg PO BID 07/27/23 11/10/23 levothyroxine 75 mcg tablet 75 mcg PO QDAY 07/27/23 11/10/23 mesalamine 1.2 gram tablet,delayed 4.8 g PO Q24H 07/27/23 11/10/23 release metoprolol succinate 50 mg 50 mg PO .COMPLEX 07/27/23 11/10/23 tablet,extended release 24 hr pantoprazole 40 mg tablet,delayed 40 mg PO Q12H 07/27/23 11/10/23 release spironolactone 50 mg tablet 50 mg PO DAILY 07/27/23 11/10/23 sucralfate 100 mg/mL oral 10 ml PO QID 07/27/23 11/10/23 suspension (Carafate) venlafaxine 150 mg 150 mg PO DAILY 07/27/23 11/10/23 capsule,extended release 24 hr (Effexor XR) levothyroxine 50 mcg tablet 50 mcg PO DAILY 11/10/23 11/10/23 Allergies Allergy/AdvReac Type Severity Reaction Status Date / Time codeine AdvReac Intermediate Unknown Verified 01/03/25 17:19 diphtheria,pertussis AdvReac Intermediate Unknown Verified 01/03/25 17:19 (acellular),te (From Boostrix Tdap) prochlorperazine (From AdvReac Intermediate ubknown Verified 01/03/25 17:19 Compazine) Sulfa (Sulfonamide AdvReac Intermediate Unknown Verified 01/03/25 17:19 Antibiotics) Review of Systems ROS Status of ROS 10 or more systems reviewed and unremarkable except as noted in history and below [facility] Social History Smoking status: Never smoker Little interest or pleasure in doing things: not at all Feeling down, depressed, or hopeless: not at all Exam Narrative Exam Narrative: Constituational: Awake/ alert, no apparent distress, well hydrated, + obese HENMT: normocephalic, external ears normal, + sanguinous drainage B/L nares,moist oral mucous membranes and oropharynx normal Eyes: EOMI and conjunctivae normal Neck: ROM intact Chest: inspection of chest normal Respiratory: Normal respiratory effort, clear to auscultation bilaterally Cardio: regular rate and regular rhythm Back: nontender MSK: ROM intact, +NVI Skin: no rashes or petechiae Neuro: no focal deficits Psych: Moderately anxious Constitutional Vital Signs, click to edit/add: Last Vital Signs Temp 98.2 F 01/03/25 17:19 Pulse 85 01/03/25 17:19 Resp 20 01/03/25 17:19 BP 120/82 01/03/25 17:19 Pulse Ox 96 01/03/25 17:19 O2 Del Method Room Air 01/03/25 17:19 Course Vital Signs Vital signs: Vital Signs Temperature 98.2 F 01/03/25 17:19 Pulse Rate 85 01/03/25 17:19 Respiratory Rate 20 01/03/25 17:19 Blood Pressure 120/82 01/03/25 17:19 Pulse Oximetry 96 01/03/25 17:19 Oxygen Delivery Method Room Air 01/03/25 17:19 Temperature 98.2 F 01/03/25 17:19 Pulse Rate 85 01/03/25 17:19 Respiratory Rate 20 01/03/25 17:19 Blood Pressure 120/82 01/03/25 17:19 Pulse Oximetry 96 01/03/25 17:19 Oxygen Delivery Method Room Air 01/03/25 17:19 Medical Decision Making MDM Narrative Medical decision making narrative: The patient is a nontoxic-appearing 69-year-old female who presented to the emergency department today for evaluation concerns for an episode of epistaxis. Initial examination and vital signs overall stable with exception patient has noted to have bleeding from both nares and she was initially noted be hypertensive with SBP 170s. Hemostasis subsequently achieved with nasal clamps were applied for 30 minutes. On reevaluation SBP did normalize and vital signs have remained stable. She is not in any respiratory distress. She additionally is more calm. Discussed these findings with the patient include recommendations for supportive care of epistaxis while on oral anticoagulation. Patient was provided nasal clamps for discharge for any reoccurrence of bleeding. Discussed consideration for use of Afrin as needed for any recurrence of bleeding. Advised on follow-up with ENT for reevaluation. Discussed signs and symptoms of any worsening condition and when to consider reevaluation. Patient verbalized an understanding of this and is agreeable with the plan to be discharged home. Medical Records Medical records reviewed: Yes I reviewed the patient's medical records Discharge Plan Discharge Chief Complaint: Epistaxis Clinical Impression: Epistaxis, Hypertension, Chronic anticoagulation Patient Disposition: Home, Self-Care Prescriptions / Home Meds: No Action atorvastatin 40 mg tablet 40 mg PO QDAY celecoxib 200 mg capsule 200 mg PO Q24H venlafaxine [Effexor XR] 150 mg capsule,extended release 24hr 150 mg PO DAILY hydroxychloroquine 200 mg tablet 200 mg PO BID Patient Comments: with food cholecalciferol (vitamin D3) [D3 DOTS] 50 mcg (2,000 unit) tablet 50 mcg PO DAILY Eliquis 5 mg tablet 5 mg PO Q12H furosemide 20 mg tablet 40 mg PO QDAY mesalamine 1.2 gram tablet,delayed release (DR/EC) 4.8 g PO Q24H buspirone 10 mg tablet 10 mg PO .at bedtime colestipol 1 gram tablet 2 g PO BID ferrous sulfate [FeroSul] 325 mg (65 mg iron) tablet 325 mg PO QDAY levothyroxine 75 mcg tablet 75 mcg PO QDAY metoprolol succinate 50 mg tablet extended release 24 hr 50 mg PO .COMPLEX Rx Instructions: 50 mg orally 1 tablet in the morning and 2 tablets in the evening; pantoprazole 40 mg tablet,delayed release (DR/EC) 40 mg PO Q12H spironolactone 50 mg tablet 50 mg PO DAILY sucralfate [Carafate] 100 mg/mL suspension 10 ml PO QID Rx Instructions: swish in mouth and spit out; use after food and/or drink alendronate 70 mg tablet 70 mg PO .weekly cholestyramine (with sugar) [Questran] 4 gram powder 1 ea PO TID levothyroxine 50 mcg tablet 50 mcg PO DAILY Print Language: Ukrainian Instructions: Nosebleed (ED), Hypertension (ED) Additional Instructions: Avoid picking, blowing, rubbing your nose for the next 24 to 48 hours to prevent any rebleeding. If you have any reoccurrence of bleeding recommend you clamp your nose for 30 minutes with the clamps that were provided by the ER. If you continue to have bleeding after 30 minutes may use Afrin in the naris and reclamped for an additional 30 minutes. If bleeding persists or continues past this consider reevaluation in the ER. Continue your medication for high blood pressure. It is important you maintain a blood pressure within a normal range to additionally prevent any reoccurrence of bleeding. May follow-up with ENT for reevaluation as discussed. Referrals: RIO TREVIÑO [Primary Care Provider, Family Practice] - 1 week Vonnie Tracy MD [Physician, Ear, Nose, Throat] - 1 week
--- NOTE | 2025-01-03 17:52 | PC.NURSE ---
1751 - bleeding has slowed at this time, is no longer dripping down nose. does admit that she can still feel it dripping down the back of her throat slightly. does appear a lot less in distress.
== END 2025-01-03 18:40 | disposition home or self-care (01) ==
PROVIDERS: Emergency Provider Emergency Medicine; PCP Family Medicine
DX: R04.0 Epistaxis (principal); I10 Essential (primary) hypertension; I48.91 Unspecified atrial fibrillation; Z79.01 Long term (current) use of anticoagulants; Z79.899 Other long term (current) drug therapy
CPT/HCPCS: 99281

== ENCOUNTER 2025-04-25 16:51 | Outpatient (REF) | payer MEDICARE, OTHER, SELFPAY ==
--- OUTSIDE RECORDS SUMMARY | 2025-04-25 17:09 | XMS_ITS | CCD ---
Author Organization [facility] Care Team Providers Care Correspondence Representative Name Role Phone YURIY CONWAY Attending Unavailable FURLONG, WOJCIECH Primary Care Unavailable YURIY CONWAY Attending Unavailable FURLONG, WOJCIECH Primary Care Unavailable Furlong, Wojciech Francisco Javier Primary Care Provider Furlong DO, Wojciech Francisco Javier Primary Care Provider Furlong, DO Wojciech Primary Care Provider [phone] MD Pardeep Barraza Emergency Provider [phone] MD Hussain Cat Admit Provider MD Hussain Cat Attending Provider [phone] DO Rachelle Frazier Other Provider DO Gaetano Junior Emergency Provider [phone] Furlong DO, Wojciech Francisco Javier Primary Care Provider Furlong DO, Wojciech Francisco Javier Primary Care Provider Furlong DO, Wojciech Francisco Javier Primary Care Provider Furlong, Wojciech G Unavailable Unavailable Unavailable Sairka, Dr. Yan Attending Unavailable [id number], Dr. Yan Referring Unavailable Furlong, Wojciech Francisco Javier Primary Care Unavailab le [id number], Dr. Yan Attending Unavailable [id number], Dr. Yan Referring Unavailable Furlong, Wojciech Francisco Javier Primary Care Unavailab le [id number], Dr. Yan Attending Unavailable [id number], Dr. Yan Referring Unavailable Furlong, Wojciech Francisco Javier Primary Care Unavailab le TIARRA, DR MIRTHA Johnston Admitting Unavailabl e TIARRA, DR MIRTHA Johnston Attending Unavailabl e FURLONG, DR WOJCIECH Johnston Primary Care Unavailable HAY ., DR ROTH Consulting Unavailable YAROSH .BEVERLY Consulting Unavailable MISC, DR RIVERS Consulting Unavailable MISC, DR RIVERS Attending Unavailable FURLONG, DR WOJCIECH Johnston Primary Care Unavailable MISC, DR RIVERS Admitting Unavailable FURLONG, DR WOJCIECH Johnston Primary Care Unavailable DEEPA ., MIKE Admitting Unavailable DEEPA ., MIKE Consulting Unavailable DEEPA Moss, MIKE Attending Unavailable JENA WEN Consulting Unavailable SENAIT KELSEY Consulting Unavailable Maxlong Wojciech FONTANA Francisco Javier Primary Care Provider Maxcynthiang, DO Jeffrey Primary Care Provider MD Yuriy Conway Attending Provider MD Yuriy Conway Referring Provider Yuriy Conway MD Unavailable Furcynthiang, DO Jeffrey Primary Care Provider [phone] MD Yuriy Conway Attending Provider MD Yuriy Conway Referring Provider Maxjason Wojciech Primary Care Provider AUGUST YOUNG Attending Unavailable KIMMY CERDA Attending Unavailable WOJCIECH TREVIÑO Referring Unavailable AUGUST YOUNG Attending Unavailable Wojciech Treviño MD Primary Care Provider [phone] Wojciech Treviño DO Primary Care Provider [phone] Daphneng Wojciech FONTANA Primary Care Provider Daphneng Wojciech FONTANA Primary Care Provider Wojciech Treviño DO Primary Care Provider [phone] Yuriy Conway MD Attending Provider [phone] JUAN CHINO Attending Unavailable YURIY CONWAY Referring Unavailable MAXJASON, WOJCIECH MCINTYRE Primary Care Unavailab JUAN Burden Admitting Unavailable GILBERT, JUAN S Attending Unavailable FURLONG, WOJCIECH FRANCISCO JAVIER Primary Care Unavailab le MEDCHRISTIAN HERNANDEZ Attending Unavailable FURLONG, WOJCIECH FRANCISCO JAVIER Referring Unavailab le FURLONG, WOJCIECH FRANCISCO JAVIER Primary Care Unavailab le GILBERT, JUAN S Admitting Unavailable GILBERT, JUAN S Attending Unavailable FURLONG, WOJCIECH FRANCISCO JAVIER Primary Care Unavailab le CONWAYYURIY MENDEZ Referring Unavailable GILBERT, JUAN S Referring Unavailable FURLONG, WOJCIECH FRANCISCO JAVIER Primary Care Unavailab le MEDCHRISTIAN HERNANDEZ Attending Unavailable GILBERT, JUAN S Referring Unavailable FURLONG, WOJCIECH FRANCISCO JAVIER Primary Care Unavailab le MEDCHRISTIAN HERNANDEZ Referring Unavailable FURLONG, WOJCIECH FRANCISCO JAVIER Primary Care Unavailab le FURLONG, WOJCIECH FRANCISCO JAVIER Primary Care Unavailab le GILBERT, JUAN S Referring Unavailable FURLONG, WOJCIECH FRANCISCO JAVIER Primary Care Unavailab le GILBERT, JUAN S Referring Unavailable FURLONG, WOJCIECH FRANCISCO JAVIER Primary Care Unavailab le YURIY CONWAY Referring Unavailable FURLONG, WOJCIECH FRANCISCO JAVIER Primary Care Unavailab le Kuns ANTONIO-PLATE E[employer] [facility] Primary Care Provider [employer], Wojciech Primary Care Unavailable Yuriy Conway Admitting Unavailable Yuriy Conway Attending Unavailable Yuriy Conway Referring Unavailable Yuriy Conway Admitting Unavailable ConwayYuriy Attending Unavailable Furlong, Wojciech Primary Care Unavailable Yuriy Conway Attending Unavailable ConwayYuriy Admitting Unavailable Furlong, Wojciech Primary Care Unavailable ConwayYuriy Attending Unavailable ConwayYuriy Admitting Unavailable Furlong, Wojciech Primary Care Unavailable Furlong DOWojciech Primary Care Provider Yuriy Conway MD Unavailable FURCYNTHIANG, WOJCIECH Johnston Referring Unavailable DARLIN [facility] Care Unavailable FURLONG, WOJCIECH Johnston Attending Unavailable FURLONG, WOJCIECH Johnston Referring Unavailable FURLONG, WOJCIECH Johnston Primary Care Unavailable FURLONG, WOJCIECH Johnston Attending Unavailable FURLONG, WOJCIECH Johnston Referring Unavailable FURLONG, WOJCIECH Johnston Primary Care Unavailable FURLONG, WOJCIECH Johnston Attending Unavailable FURLONG, WOJCIECH Johnston Referring Unavailable FURLONG, WOJCIECH Johnston Primary Care Unavailable FURLONG, WOJCICEH Taz Attending Unavailable FURLONG, WOJCIECH Taz Referring Unavailable FURLONG, WOJCIECH Taz Primary Care Unavailable FURLONG, WOJCIECH Taz Attending Unavailable FURLONG, WOJCIECH Taz Referring Unavailable FURLONG, WOJCIECH Johnston Primary Care Unavailable FURLONG, WOJCIECH Taz Attending Unavailable FURLONG, WOJCIECH Taz Referring Unavailable FURLONG, WOJCIECH G Primary Care Unavailable FURLONG, WOJCIECH Taz Attending Unavailable FURLONG, WOJCIECH Taz Referring Unavailable FURLONG, WOJCIECH G Primary Care Unavailable FURLONG, WOJCIECH Taz Attending Unavailable FURLONG, WOJCIECH Taz Referring Unavailable FURLONG, WOJCIECH Taz Primary Care Unavailable Furlong Wojciech CHILDERS Primary Care Provider AIDEN HALL Referring Unavailable FURLONG, WOJCIECH FRANCISCO JAVIER Primary Care Unavailab YURIY Drake Attending Unavailable YURIY CONWAY Referring Unavailable FURLONG, WOJCIECH FRANCISCO JAVIER Primary Care Unavailab le YURIY CONWAY Referring Unavailable FURLONG, WOJCIECH FRANCISCO JAVIER Primary Care Unavailab le YURIY CONWAY Attending Unavailable CONWAYYURIY MENDEZ Referring Unavailable FURLONG, WOJCIECH FRANCISCO JAVIER Primary Care Unavailab ABISAI Casas Attending Unavailable FURLONG, WOJCIECH FRANCISCO JAVIER Primary Care Unavailab AIDEN Agarwal Admitting Unavailable AIDEN HALL Attending Unavailable FURLONG, WOJCIECH FRANCISCO JAVIER Primary Care Unavailab ESPINOZA Carrasquillo Consulting Unavailable FURLONG, WOJCIECH FRANCISCO JAVIER Primary Care Unavailab le FURLONG, WOJCIECH FRANCISCO JAVIER Primary Care Unavailab BEVERLY Delgadillo Attending Unavailable FURLONG, WOJCIECH FRANCISCO JAVIER Primary Care Unavailab AIDEN Agarwal Attending Unavailable FURLONG, WOJCIECH FRANCISCO JAVIER Primary Care Unavailab CURTIS [place] Referring Unavailable CURTIS OGDEN Attending Unavailable FURLONG, WOJCIECH FRANCISCO JAVIER Primary Care Unavailab BEVERLY Delgadillo Referring Unavailable FURLONG, WOJCIECH FRANCISCO JAVIER Primary Care Unavailab le SANTO Referring Unavailable FURLONG, WOJCIECH FRANCISCO JAVIER Primary Care Unavailab BEVERLY Delgadillo Referring Unavailable FURLONG, WOJCIECH FRANCISCO JAVIER Primary Care Unavailab NADEGE Malloy Attending Unavailable FURLONG, WOJCIECH FRANCISCO JAVIER Primary Care Unavailab ALFREDO Whitney Referring Unavailable FURLONG, WOJCIECH FRANCISCO JAVIER Primary Care Unavailab le FURLONG, WOJCIECH FRANCISCO JAVIER Primary Care Unavailab le FURLONG, WOJCIECH FRANCISCO JAVIER Primary Care Unavailab JULIA Gonsalez Referring Unavailable FURLONG, WOJCIECH FRANCISCO JAVIER Primary Care Unavailab le SELF Referring Unavailable FURLONG, WOJCIECH FRANCISCO JAVIER Primary Care Unavailab AIDEN Agarwal Referring Unavailable FURLONG, WOJCIECH FRANCISCO JAVIER Primary Care Unavailab MARY Warren Attending Unavailable FURLONG, WOJCIECH FRANCISCO JAVIER Primary Care Unavailab AIDEN Agarwal Attending Unavailable FURLONG, WOJCIECH FRANCISCO JAVIER Primary Care Unavailab le AIDEN HALL Referring Unavailable FURLONG, WOJCIECH FRANCISCO JAVIER Primary Care Unavailab CURTIS [place] Attending Unavailable FURLONG, WOJCIECH FRANCISCO JAVIER Primary Care Unavailab le AIDEN HALL Referring Unavailable FURLONG, WOJCIECH FRANCISCO JAVIER Primary Care Unavailab le SELF Referring Unavailable FURLONG, WOJCIECH FRANCISCO JAVIER Primary Care Unavailab BEVERLY Delgadillo Attending Unavailable FURLONG, WOJCIECH FRANCISCO JAVIER Primary Care Unavailab WILL Rebollar Attending Unavailable FURLONG, WOJCIECH FRANCISCO JAVIER Primary Care Unavailab le SELF Referring Unavailable FURLONG, WOJCIECH FRANCISCO JAVIER Primary Care Unavailab DIONE Rodriguez Attending Unavailable FURLONG, WOJCIECH FRANCISCO JAVIER Primary Care Unavailab le SELF Referring Unavailable FURLONG, WOJCIECH FRANCISCO JAVIER Primary Care Unavailab RADU Salazar Attending Unavailable FURLONG, WOJCIECH FRANCISCO JAVIER Primary Care Unavailab NADEGE Malloy Referring Unavailable NADEGE MURPHY Attending Unavailable MAXLONG, WOJCIECH FRANCISCO JAVIER Primary Care Unavailab RADU Salazar Referring Unavailable FURLONG, WOJCIECH FRANCISCO JAVIER Primary Care Unavailab le SELF Referring Unavailable MARY MORALES Attending Unavailable FERCHO PRATHER Attending Unavailable FURLONG, WOJCIECH FRANCISCO JAVIER Primary Care Unavailab le MAXLONG, WOJCIECH FRANCISCO JAVIER Primary Care Unavailab le Allergies Allergy Classification Reported Allergen(s) Allergy Type Date of Onset Reaction(s) Facility Contrast Media (1 source) Contrast media Substance Allergy 011 Other: See Comments [facility] dofetilide (1 source) dofetilide Drug Allergy 07-30-2 020 Other: See Comments, Anaphylaxis [facility] Iodine (and Iodine containting drugs) (1 source) Iodine Drug Allergy Other: See Comments [facility] Opioid Agonists (1 source) Codeine Drug Allergy Other: See Comments [facility] Prochlorperazine (1 source) Prochlorperazine Drug Allergy Other: See Comments [facility] Sulfonamides (antibiotic) (1 source) Sulfonamides (Antibiotic) Drug Allergy Vomiting [facility] (20 sources) Codeine; Translations: [codeine] Drug Allergy Other: See Comments, Unknown, Headache, Other [facility] (20 sources) Contrast media; Translations: [CONTRAST DYE] Drug Allergy Other: See Comments, Unknown [facility] (20 sources) dofetilide; Translations: [Tikosyn] Drug Allergy Other: See Comments, Anaphylaxis, Unknown, GI Disturbance, Palpitations, GI Upset, GI intolerance, Other [facility] (20 sources) Prochlorperazine; Translations: [PROCHLORPERAZINE EDISYLATE] Drug Allergy Other: See Comments [facility] (20 sources) Sulfonamides (Antibiotic); Translations: [SULFA (SULFONAMIDE ANTIBIOTICS)] Drug Intolerance Vomiting, Swelling, Nausea/vomitin g, Unknown, GI intolerance, Anaphylaxis [facility] (16 sources) Tetanus Vaccines And Toxoid; Translations: [TETANUS VACCINES AND TOXOID] Drug Intolerance Other: See Comments [facility] (20 sources) EPINEPHrine; Translations: [epinephrine] Drug Allergy Unknown, Palpitations [facility] (20 sources) Prochlorperazine; Translations: [PROCHLORPERAZINE] Drug Allergy Unknown, Other [facility] (9 sources) tetanus and diphtheria toxoids; Translations: [tetanus and diphtheria toxoids] Allergy to substance Redness of Skin [facility] (17 sources) Iodinated Contrast Media; Translations: [IODINATED CONTRAST MEDIA] Propensity to adverse reactions Flushing [facility] (20 sources) Tetanus Vaccines And Toxoid Drug Intolerance 010 Other: See Comments, Unknown, Other [facility] (8 sources) Contrast media Allergy to substance (finding) [facility] [address] DO Work Phone: (8 sources) diphtheria toxoid vaccine, inactivated / tetanus toxoid vaccine, inactivated; Translations: [Tetanus-Diphtheria Toxoids Td SUSP] Drug Allergy Other [facility] 250 DO Work Phone: [phone] (8 sources) Prochlorperazine; Translations: [Compazine] Drug Allergy [place] [address] DO Work Phone: [phone] (8 sources) Sulfamethoxazole; Translations: [sulfa] Drug Allergy [place] [address] DO Work Phone: (8 sources) Sulfonamides (Antibiotic); Translations: [Sulfa Antibiotics] Allergy to drug (finding) Swelling, Vomiting [place] [address] DO Work Phone: (8 sources) Tdap; Translations: [Tdap] Allergy to drug (finding) [place] [address] DO Work Phone: (1 source) Allopurinol Drug Allergy [facility] (1 source) Codeine Drug Allergy [facility] (1 source) dofetilide Drug Allergy [facility] (1 source) Iodine (And Iodine Containting Drugs) Drug allergy (disorder) [facility] (1 source) Prochlorperazine Drug Allergy [facility] (20 sources) Iodine; Translations: [IODINE] Drug Allergy 023 Unknown, Other: See Comments [facility] (20 sources) acellular pertussis vaccine, inactivated / diphtheria toxoid vaccine, inactivated / tetanus toxoid vaccine, inactivated; Translations: [DIPHTH,PERTUS(ACEL L),TETANUS] Drug Allergy 023 Unknown, Other (See Comments[facility] (7 sources) dofetilide Drug Allergy 020 Anaphylaxis, GI intolerance, Other, Palpitations, Unknown [facility] (7 sources) Diphth-Acell Pertussis-Tetanus Drug Allergy Unknown [facility] (7 sources) Other Propensity to adverse reactions Unknown [facility] (20 sources) diphtheria toxoid vaccine, inactivated / tetanus toxoid vaccine, inactivated; Translations: [TETANUS AND DIPHTHER. TOX (PF)] Drug Allergy Rash [facility] (20 sources) Diphtheria,Pertussi s(Acell),Tetanus Pedi Vaccine; Translations: [DIPHTHERIA,PERTUSS IS(ACELL),TETANUS PEDI VACCINE] Propensity to adverse reactions to drug Other (See Comments) [facility] (1 source) Codeine Drug Allergy [facility] (1 source) dofetilide Drug Allergy [facility] (1 source) Sulfonamides (Antibiotic) Drug allergy (disorder) [facility] Rep[facility] Medications Current Medications Medication Drug Class(es) Dates Sig (Normalized) Sig (Original) [id number] 200 actuat albuterol 0.09 mg/actuat metered dose inhaler (7 sources) beta2-Adrenergic Agonist Start: 10-30-2022 take 2 puff(s) by mouth four times daily albuterol HFA 90 mcg/act inhaler inhale 2 puffs by mouth and INTO THE LUNGS four times a day 10/30/2022 Active alendronic acid 70 mg oral tablet (20 sources) Bisphosphonate Start: 05-12-2022 End: 08-21-2025 take 1 tablet by mouth every week in the morning alendronate (FOSAMAX) 70 mg tablet Take 1 tablet by mouth one time a week. In the morning with a full glass of water, on an empty stomach. Do not take anything else by mouth or lie down for the next 30 minutes. 12 tablet 02/22/2025 08/21/2025 Active Start: 04-03-2019 End: 02-07-2022 take 1 tablet by mouth every week Alendronate 70 mg Tablet Discontinued 70 MG PO every week April 02, 2019 11:00pm February 07, 2022 4:11pm take 1 tablet by radha th in the morning alendronate (Fosamax) 70 mg tablet Take 1 tablet (70 mg) by mouth every 7 days. On Thursday. Take in the morning with a full glass of water, on an empty stomach, and do not take anything else by mouth or lie down for the next 30 min. Active Comment on above: Take 1 tablet by radha th one time a week. In the morning with a full glass of water, on an empty stomach. Do not take anything else by mouth or lie down for the next 30 minutes. alendronic acid 70 mg / cholecalciferol 2800 unt oral tablet (20 sources) Bisphosphonate, Vitamin D take 70-2800 tablets by mouth every week alendronate-marni calciferol (Fosamax Plus D) 70-2800 MG-UNIT tablet Take 1 tablet by mouth once a week Active End: 11-28-2024 take 1 tablet by mouth in the morning alendronate-vitamin D3 (FOSAMAX PLUS D) 70 mg- 2,800 unit per tablet Take 1 tablet by mouth every 7 days. In a.m. with water on empty stomach, nothing else by mouth and remain upright for 30min 11/28/2024 Discontinued (Duplicate order) amiodarone hydrochloride 200 mg oral tablet (20 sources) Antiarrhythmic Start: 12-07-2024 End: 12-07-2025 take 1.5 tablets by mouth once daily amiodarone (Pacerone) 200 mg tablet Indications: Atypical atrial flutter Take 1.5 tablets (300 mg) by mouth once daily. 135 tablet 3 12/07/2024 12/07/2025 Active Start: 07-08-2024 End: 07-08-2025 take 2 tablets by mouth once daily amiodarone (Pacerone) 200 mg tablet Indications: Atypical atrial flutter Take 2 tablets by mouth once daily 180 tablet 10/27/2024 12/07/2024 Discontinued (Reorder) Start: 11-28-2023 amiodarone (PA CERONE) 200 mg tablet Take 300 mg by mouth once daily. Patient reports 300 mg by mouth daily 11/28/2023 Active Start: 11-28-2023 amiodarone (PA CERONE) 200 mg tablet Take 1 tablet (200 mg total) by mouth. 05/07/2024 Active Start: 11-26-2023 End: 09-19-2024 take 1 tablet by mouth twice daily Amiodarone 200 mg tablet Discontinued 200 MG PO Twice daily 60 November 25, 2023 11:00pm September 19, 2024 8:19am Start: 11-24-2023 End: 05-22-2024 take 1 tablet by mouth once daily Amiodarone 200 mg tablet Discontinued 200 MG PO Daily November 24, 2023 11:00pm November 26, 2023 12:46pm Start: 11-19-2023 End: 11-24-2023 amiodarone (Pacerone) 400 mg tablet Indications: Atypical atrial flutter (CMS/HCC) Take 1 tablet (400 mg) by mouth 2 times a day for 5 days. Do not start before November 19, 2023. 10 tablet 0 11/19/2023 11/24/2023 Active Start: 06-23-2019 End: 02-07-2022 take 1 tablet by mouth twice daily Amiodarone 200 mg tablet Discontinued 200 MG PO Twice daily September 18, 2019 5:26pm February 07, 2022 4:11pm Start: 06-02-2019 End: 06-23-2019 take 1 tablet by mouth once daily Amiodarone 200 mg tablet Discontinued 200 MG PO Daily 30 June 01, 2019 11:00pm June 23, 2019 1:24pm Start: 05-12-2019 End: 06-02-2019 take 1 tablet by mouth twice daily at mealtime Amiodarone 200 mg Tablet Discontinued 200 MG PO Twice daily with meals 60 May 11, 2019 11:00pm June 02, 2019 2:08pm Start: 04-03-2019 End: 05-12-2019 take 1 tablet by mouth once daily Amiodarone 200 mg Tablet Discontinued 200 MG PO Daily April 02, 2019 11:00pm May 12, 2019 1:58pm amoxicillin 875 mg oral tablet (20 sources) Penicillin-class Antibacterial Start: 07-18-2024 End: 07-25-2024 take 1 tablet by mouth in the morning, then take 1 tablet by mouth at bedtime amoxicillin (AMOXIL) 875 mg tablet Take 1 tablet (875 mg total) by mouth in the morning and 1 tablet (875 mg total) before bedtime. Do all this for 7 days. 14 tablet 07/18/2024 07/25/2024 Active Start: 06-11-2023 End: 09-30-2024 amoxicillin (AMOXIL) 500 mg capsule Take 4 tablets one hour prior to dental procedure 4 capsule 3 06/11/2023 09/30/2024 Discontinued (Discontinued by Patient) Start: 02-11-2021 End: 01-01-2022 Amoxicillin 500 mg tablet Ta ke 4 tablets by mouth 1 hour prior to procedure and 2 tablets by mouth 6 hours after procedure 6 tablet 4 02/11/2021 01/01/2022 Discontinued (Other) Comment on above: Take 4 tablets by mo [facility] 1 hour prior to procedure and 2 tablets by mouth 6 hours after procedure Take 4 tablets one h our prior to dental procedure apixaban 5 mg oral tablet (20 sources) Factor Xa Inhibitor Start: End: take 1 tablet by mouth twice daily apixaban (ELIQUIS) 5 mg tab(s) Take 1 tablet by mouth two times a day. Patient should start on April 05, 2025. 60 tablet 04/05/2025 05/05/2025 Active Comment on above: Take 1 tablet by radha th twice daily. Take 5 mg by mouth t wice daily. atorvastatin 40 mg oral tablet (20 sources) HMG-CoA Reductase Inhibitor Start: End: take 1 tablet by mouth [...] 6 tablet 0 09/22/2023 09/27/2023 Active B Complex Vitamins (B COMPLEX 1 PO) (7 sources) B Complex Vitami ns (B COMPLEX 1 PO) Orally Active belimumab 120 mg injection (20 sources) B Lymphocyte Stimulator-specific Inhibitor Start: 020 take 120 mg intravenously every three months Belimumab 120 mg Recon Soln Active 10 mg/kg IV As Directed September 18, 2019 12:00am EVERY THREE MONTHS Start: 09-18-2019 take 1 mg intravenou sly every three months Belimumab Active 10 mg/kg IV As Directed September 18, 2019 1:00am EVERY THREE MONTHS Start: 04-25-2019 belimumab (Karla lysta) 120 mg recon soln IV injection Infuse into a venous catheter every 8 (eight) weeks. 04/25/2019 Active Start: 04-03-2019 End: 06-19-2019 take 120 mg intravenously every three months Belimumab 120 mg Recon Soln Discontinued 10 mg/kg IV EVERY 3 MONTHS April 02, 2019 11:00pm June 19, 2019 11:46am Start: 04-03-2019 End: 06-19-2019 take 1 mg intravenously every three months Belimumab Discontinued 10 mg/kg IV EVERY 3 MONTHS April 03, 2019 12:00am June 19, 2019 12:46pm Start: 12-25-2016 belimumab (KARLA LYSTA) 80 mg/mL recon soln Infuse 1.5 mL (120 mg total) into a venous catheter every 60 (sixty) days. 12/25/2016 Active belimumab (BENLY STA INTRAVENOUS) Inject intravenously. Patient reports she receives infusion every 3 months Active belimumab (BENLY STA INTRAVENOUS) Inject intravenously. [...] capsule by mouth once daily Bifidobacterium Infantis (Align (B.Infantis)) 4 mg Capsule Active 4 MG PO Daily February 06, 2022 11:00pm Bifidobacterium infantis (ALIGN) 10.5 mg (10 million cell) tablet,chewable Active Bifidobacterium infantis (ALIGN) 10.5 mg (10 million cell) tablet,chewable Align one daily Active Bifidobacterium infantis (ALIGN ORAL) Take by mouth once daily. Active take 1 tablet by mouth once milka y Bifidobacterium infantis (ALIGN ORAL) Take 1 tablet by mouth once daily. Active take 1 tablet by mouth once [...] above: Take by mouth once d aily. busPIRone hydrochloride 5 mg oral tablet (20 sources) Start: 03-22-2025 take 1 tablet by mouth three times daily busPIRone (BUSPAR) 5 mg tablet TAKE 1 TABLET BY MOUTH THREE TIMES DAILY 90 tablet 5 03/22/2025 Active Start: 05-01-2024 take 1 tablet by radha th twice daily busPIRone (Buspar) 5 mg tablet Take 1 tablet (5 mg) by mouth 2 times a day. 05/01/2024 Active Start: 03-30-2024 End: 03-22-2025 take 1 tablet by mouth three times daily busPIRone (BUSPAR) 5 mg tablet TAKE 1 TABLET BY MOUTH THREE TIMES DAILY 90 tablet 1 01/19/2025 03/22/2025 Discontinued Start: 05-15-2020 End: 03-30-2024 take 1 tablet by mouth twice daily busPIRone (BUSPAR) 10 mg tablet Take 10 mg by mouth two times a day. 05/15/2020 Active Start: 05-15-2020 take 1 tablet by radha th once daily at bedtime Buspirone 10 mg Tablet Active 10 MG PO Daily at bedtime February 06, 2022 11:00pm Comment on above: Take 10 mg by mouth daily at bedtime. calcium carbonate 1250 mg / cholecalciferol 200 unt oral tablet (20 sources) Vitamin D Start: 08-27-2022 take 1 tablet by mouth three times daily calcium-carbonat e-vitamin D3 500 mg-5 mcg (200 unit) per tablet Take 1 tablet by mouth three times daily. 08/27/2022 Active Start: 08-27-2022 take 1 tablet by radha th in the morning, then take 1 tablet by mouth once daily, then take 1 tablet by mouth once at bedtime calcium carbonate-vitamin D3 (OSCAL 500 + D) 500 mg(1,250mg) -200 units per tablet Take 1 tablet by mouth in the morning and 1 tablet at noon and 1 tablet before bedtime. 08/27/2022 Active Start: 08-27-2022 take 1 tablet by radha th once in the morning, then take 1 tablet by mouth once, then take 1 tablet by mouth in the evening Calcium Carbonate-Vitamin D (Oyster Shell Calcium/D) 500-5 MG-MCG tablet Take 1 tablet by mouth in the morning and 1 tablet at noon and 1 tablet in the evening. 08/27/2022 Active Start: 09-18-2019 End: 02-07-2022 take [...] Capsule Discontinued 1 TAB PO Daily April 02, 2019 11:00pm June 19, 2019 11:46am Comment on above: Take 1 tablet by radha th three times daily. celecoxib 200 mg oral capsule (20 sources) Nonsteroidal Anti-inflammatory Drug Start: 09-16-2024 take 1 capsule by mouth in the morning celecoxib (CeleBREX) 200 mg capsule TAKE 1 CAPSULE BY MOUTH IN THE MORNING AND 1 CAPSULE BEFORE BEDTIME 180 capsule 1 09/16/2024 Active Start: 05-28-2023 End: 03-21-2024 take 1 capsule by mouth in the morning, then take 1 capsule by mouth at bedtime, then take 1 capsule by mouth in the morning, then take 1 capsule by mouth at bedtime celecoxib (CeleBREX) 200 mg capsule Take 1 capsule (200 mg total) by mouth in the morning and 1 capsule (200 mg total) before bedtime. TAKE 1 CAPSULE BY MOUTH IN THE MORNING AND 1 CAPSULE BEFORE BEDTIME. 180 capsule 1 03/21/2024 Active Start: 04-25-2019 End: 09-16-2024 take 1 capsule by mouth twice daily celecoxib (CeleBREX) 200 mg capsule Take 1 capsule (200 mg) by mouth 2 times a day. 04/25/2019 Active Start: 04-03-2019 End: 11-07-2021 take 1 capsule by mouth once daily Celecoxib 200 mg Capsule Discontinued 200 MG PO Daily April 02, 2019 11:00pm May 12, 2019 1:58pm Comment on above: Take 200 mg by mouth twice daily. Take 200 mg by mouth once daily. cholecalciferol 0.05 mg oral capsule (20 sources) Vitamin D Start: 04-25-2019 take 1 capsule by mouth once daily Vitamin D3 50 MCG (2000 UT) Oral Capsule TAKE 1 CAPSULE Daily Quantity: 0 Refills: 0 Ordered: 25-Apr-2019 DO Start : 25-Apr-2019 Active Start: 04-25-2019 take 3 capsules by m outh once daily cholecalciferol (Vitamin D-3) 50 mcg (2,000 unit) capsule Take 3 capsules (150 mcg) by mouth once daily. 04/25/2019 Active Start: 04-25-2019 take 1 capsule by mo uth once daily cholecalciferol (Vitamin D-3) 50 mcg (2,000 unit) capsule Take 1 capsule (50 mcg) by mouth once daily. 0 04/25/2019 Active Start: 04-03-2019 take 1 tablet by radha once daily Cholecalciferol (Vitamin D3) 2,000 unit Tablet Active 2000 UNIT PO Daily April 02, 2019 11:00pm Cholecalciferol (Vitamin D3) 1000 units capsule 1 (one) time each day at the same time Active End: 09-01-2023 cholecalciferol, vitamin D3, 2,000 units capsule Take by mouth. 0 09/01/2023 Discontinued (Therapy completed) Comment on above: Take by mouth once d aily. clopidogrel 75 mg oral tablet (10 sources) P2Y12 Platelet Inhibitor Start: 4 End: 5 take 1 tablet by mouth in the morning clopidogreL (PLAVIX) 75 mg tablet Take 1 tablet (75 mg total) by mouth in the morning. 03/29/2024 10/25/2024 Active colestipol hydrochloride 1000 mg oral tablet (20 sources) Bile Acid Sequestrant Start: 4 End: 5 take 3 tablets by mouth twice daily colestipol (COLESTID) 1 gram tablet Indications: Diarrhea, unspecified type TAKE 3 TABLETS BY MOUTH TWICE DAILY 360 tablet 3 11/15/2024 Active Start: 09-18-2023 Colestipol (Co lestid) 1 gram tablet Active 2 GM PO Twice daily September 18, 2023 12:00am Start: 12-30-2021 End: 06-30-2024 take 2 tablets by mouth at bedtime colestipoL (COLESTID) 1 g tablet Take 2 tablets (2 g total) by mouth in the morning and 2 tablets (2 g total) before bedtime. 01/13/2023 Active Start: 08-21-2021 End: 10-16-2021 take 2 tablets by mouth twice daily colestipol (COLESTID) 1 gram tablet Indications: Diarrhea, unspecified type Take 2 tablets by mouth twice daily. 120 tablet 3 08/21/2021 10/16/2021 Discontinued Comment on above: Take 2 tablets by mo uth twice daily. TAKE 2 TABLETS BY MO UTH TWICE A DAY 12 hr dextromethorphan hydrobromide 30 mg / guaiFENesin 600 mg extended release oral tablet (1 source) Uncompetitive N-beeqbs-X-aspartate Receptor Antagonist, Sigma-1 Agonist Start: End: take 1 tablet by mouth every hour dextromethorphan- guaiFENesin (MUCINEX DM) 30-600 mg tablet extended release 12 hr Take 1 tablet by mouth every 12 (twelve) hours for 10 days. 20 tablet 0 09/22/2023 10/02/2023 Active diclofenac sodium 0.01 mg/mg topical gel (20 sources) Nonsteroidal Anti-inflammatory Drug Start: End: apply 4 g topically four times daily diclofenac (VOLTAREN ARTHRITIS PAIN) 1 % topical gel Apply 4 g to affected area four times daily. 200 g 5 05/18/2024 08/16/2024 Active Start: 02-04-2023 End: 05-05-2023 apply 2 g topically four times daily diclofenac (VOLTAREN) 1 % topical gel Apply 2 g to affected area four times daily. 200 g 2 02/04/2023 05/05/2023 Active Comment on above: Apply 2 g to affecte d area four times daily. diphenhydrAMINE hydrochloride 50 mg oral tablet (9 sources) Histamine-1 Receptor Antagonist Start: 08-08-2024 diphenhydrAMINE (Benadryl Allergy) 50 mg tablet Indications: Allergy to iodine Take 1 tablet (50 mg) by mouth as needed at bedtime for itching for up to 1 dose. Take [address] scan 1 tablet 08/08/2024 Active Start: 04-07-2024 End: 04-07-2024 take 50 mg by mouth once 50 mg, oral, Once, On Theresa at 1200, For 1 dose, Pre-Admission Testing Start: 03-13-2022 End: 03-16-2022 diphenhydrAMINE 50 mg (BENAD RYL) Start: 03-13-2022 End: 03-16-2022 diphenhydrAMINE 50 mg inject ion (BENADRYL) docusate sodium 100 mg oral capsule (5 sources) Start: 04-04-2025 End: 05-04-2025 take 1 capsule by mouth twice daily docusate sodium (COLACE) 100 mg capsule Take 1 capsule by mouth two times a day. 60 capsule 04/04/2025 05/04/2025 Active doxycycline hyclate 100 mg oral tablet (9 sources) Tetracycline- class Drug Start: 01-25-2025 End: 02-08-2025 take 1 tablet by mouth twice daily doxycycline (VIBRA-TABS) 100 mg tablet Take 1 tablet by mouth two times a day for 14 days. 28 tablet 01/25/2025 02/08/2025 Active ferrous sulfate 325 mg oral tablet (20 sources) Start: 02-07-2022 take 1 tablet by mouth once daily Ferrous Sulfate 325 mg (65 mg iron) Tablet Active 325 MG PO Daily February 06, 2022 11:00pm Start: 10-23-2020 End: 11-30-2024 take 1 tablet by mouth once daily ferrous sulfate (IRON) 325 mg (65 mg iron) tablet Take 1 tablet by mouth once daily. 90 tablet 3 11/30/2024 Active Comment on above: [facility] furosemide 20 mg oral tablet (20 sources) Loop Diuretic Start: 10-05-2019 End: 01-18-2025 take 1 tablet by mouth once daily furosemide (LASIX) 20 mg tablet Take 20 mg by mouth once daily. 10/05/2019 Active Start: 10-05-2019 take 2 tablets by mo [facility] once daily furosemide (Lasix) 20 mg tablet Take 2 tablets (40 mg) by mouth once daily. 10/05/2019 Active Start: 09-30-2019 take 1 tablet by radha th once daily Furosemide 40 mg Tablet Active 40 MG PO Daily at 0800 30 September 30, 2019 12:00am Start: 04-09-2019 End: 06-19-2019 take 1 tablet by mouth once daily Furosemide 20 mg Tablet Discontinued 20 MG PO Daily at 0800 30 April 08, 2019 11:00pm June 19, 2019 11:46am Start: 04-03-2019 End: 04-09-2019 take 1 tablet by mouth once daily Furosemide 40 mg tablet Discontinued 40 MG PO Daily April 02, 2019 11:00pm April 09, 2019 11:17am furosemide (LASI X) 40 mg tablet Take 20 mg by mouth once daily. 0 Active Comment on above: Take 20 mg by mouth once daily. Take 40 mg by mouth once daily. hydroxychloroquine sulfate 200 mg oral tablet (20 sources) Antimalarial, Antirheumatic Agent Start: 2015 End: 2024 take 1 tablet by mouth twice daily at mealtime hydrOXYchloroQUINE (PLAQUENIL) 200 mg tablet Indications: Systemic lupus erythematosus, unspecified SLE type, unspecified organ involvement status (HCC) , High risk medication use take 1 tablet by mouth twice a day with food 180 tablet 2 11/30/2024 Active Start: 07-25-2016 End: 09-19-2024 take 1 tablet by mouth once daily Hydroxychloroquine 200 mg tablet Discontinued 200 MG PO Daily November 25, 2023 11:00pm September 19, 2024 8:19am Comment on above: take 1 tablet by radha th twice a day take with food or milk NEEDS LABS take 1 tablet by radha th twice a day with food levothyroxine sodium 0.05 mg oral tablet (20 sources) l-Thyroxine Start: 4 End: take 1 tablet by mouth in the morning levothyroxine (SYNTHROID, LEVOTHROID) 50 MCG tablet Take 1 tablet (50 mcg total) by mouth in the morning. 90 tablet 3 04/21/2024 Active Start: 09-11-2022 End: 08-20-2023 take 1 tablet by mouth in the morning levothyroxine (SYNTHROID, LEVOTHROID) 50 MCG tablet Take 1 tablet (50 mcg total) by mouth in the morning. 30 tablet 1 08/20/2023 Active Start: 02-07-2022 Levothyroxine 75 mcg tablet Active 50 MCG PO Daily February 06, 2022 11:00pm Start: 02-07-2022 take 50 ug by mouth once daily Levothyroxine Active 50 MCG PO Daily February 07, 2022 12:00am Start: 09-24-2020 End: 09-17-2023 take 1 tablet by mouth once daily levothyroxine (SYNTHROID) 75 mcg tablet Take 75 mcg by mouth once daily. 09/24/2020 Active Comment on above: Take 75 mcg by mouth once daily. mesalamine 1200 mg delayed release oral tablet (20 sources) Aminosalicylate Start: 04-08-2023 End: 10-09-2023 mesalamine (CANASA) 1,000 mg suppository 1 Suppository by RECTAL route daily at bedtime. 30 Suppository 3 04/08/2023 10/09/2023 Discontinued (Course of therapy completed) Start: 09-22-2021 End: 11-30-2024 take 4 tablets by mouth once daily Mesalamine (LIALDA) 1.2 gram EC tablet Take 4 tablets by mouth once daily. 360 tablet 3 11/30/2024 Active Start: 03-04-2021 End: 09-20-2021 take 4 tablets by mouth once daily Mesalamine (LIALDA) 1.2 gram EC tablet Take 4 tablets by mouth once daily. 360 tablet 1 03/04/2021 09/20/2021 Discontinued Start: 12-06-2019 take 2 tablets by mo [facility] twice daily mesalamine (Lialda) 1.2 gram EC tablet Take 2 tablets (2.4 g) by mouth 2 times a day. 12/06/2019 Active Start: 12-06-2019 Mesalamine 1.2 GM Oral Tablet Delayed Release takes 4x day Quantity: 0 Refills: 0 Ordered: 06-Dec-2019 DO Start : 06-Dec-2019 Active Start: 06-19-2019 [facility] Mesalamine (Lialda) 1.2 gram tablet,delayed release (DR/EC) Active 1.2 GM PO Four times daily June 19, 2019 11:45am Comment on above: Take 4 tablets by [facility] once daily. take 4 tablets by [facility] once daily 1 Suppository by REC NNAMDI route daily at bedtime. 24 hr metoprolol succinate 200 mg extended release oral tablet (20 sources) beta-Adrenergic Girish Start: 08-05-2024 End: 01-05-2026 take 1 tablet by mouth once daily metoprolol succinate ER (TOPROL XL) 200 mg 24 hr tablet Take 200 mg by mouth once daily. 01/05/2025 01/05/2026 Active Start: 08-05-2024 metoprolol tar trate (LOPRESSOR) 25 mg tablet 08/05/2024 Active Start: 11-25-2023 End: 11-26-2023 Metoprolol Succinate 50 mg t ablet extended release 24 hr Discontinued 100 MG PO Daily at bedtime November 24, 2023 11:00pm November 26, 2023 12:46pm Start: 11-25-2023 End: 11-26-2023 take 100 mg by mouth once daily at bedtime Metoprolol Succinate Discontinued 100 MG PO Daily at bedtime November 25, 2023 12:00am November 26, 2023 1:46pm Start: 08-20-2022 take 1 tablet by [facility] every twenty-four hours in the morning, then take 2 tablets by mouth in the evening metoprolol succinate ER (TOPROL XL) 50 mg 24 hr tablet Indications: Chronic diastolic heart failure (HCC) TAKE 1 TABLET BY MOUTH IN THE MORNING AND 2 TABLETS BY MOUTH IN THE EVENING 270 tablet 3 02/09/2023 Active Start: 01-28-2022 End: 04-01-2025 metoprolol succinate XL (TOP ROL XL) 50 mg 24 hr tablet 08/20/2022 Active Start: 07-26-2021 End: 01-24-2022 metoprolol succinate ER (TOP ROL XL) 50 mg 24 hr tablet 50mg in am and 100mg in pm. 270 tablet 1 07/26/2021 01/24/2022 Discontinued Start: 09-18-2019 Metoprolol Suc cinate 100 mg tablet extended release 24 hr Active 200 MG PO Bedtime September 18, 2019 3:31pm Start: 09-18-2019 take 2 tablets by [facility] once daily in the morning Metoprolol Succinate 100 mg tablet extended release 24 hr Active 50 MG PO Every morning September 18, 2019 3:31pm Start: 09-18-2019 take 50 mg by mouth once daily in the morning Metoprolol Succinate Active 50 MG PO Every morning September 18, 2019 4:31pm Start: 09-18-2019 take 50 mg by mouth twice milka y Metoprolol Succinate Active 50 MG PO Twice daily September 18, 2019 3:31pm Start: 06-23-2019 End: 09-18-2019 Metoprolol Succinate 100 mg Tablet Extended Release 24 Hr Discontinued 150 MG PO Daily 45 June 23, 2019 12:00am September 18, 2019 3:31pm Start: 06-23-2019 End: 09-18-2019 take 150 mg by mouth once daily Metoprolol Succinate Discontinued 150 MG PO Daily 45 June 23, 2019 1:00am September 18, 2019 4:31pm Start: 05-08-2019 End: 06-19-2019 Metoprolol Succinate 50 mg t ablet extended release 24 hr Discontinued 100 MG PO Every evening May 07, 2019 11:00pm June 19, 2019 11:46am Start: 05-08-2019 End: 06-19-2019 take 100 mg by mouth once daily in the evening Metoprolol Succinate Discontinued 100 MG PO Every evening May 08, 2019 12:00am June 19, 2019 12:46pm Start: 04-09-2019 End: 12-07-2024 take 1 tablet by mouth once daily Metoprolol Succinate 50 mg tablet extended release 24 hr Discontinued 50 MG PO Daily May 08, 2019 [...] 2 TABLETS BY MOUTH IN THE EVENING Bcjfhcap-Icm-Kf-Lyc open-Lutein (Centrum Silver) 0.4-300-250 mg-mcg-mcg Tablet (8 sources) Start: 04-03-2019 take 1 tablet by mouth once daily Majvusda-Tlg-Nk-L ycopen-Lutein (Centrum Silver) 0.4-300-250 mg-mcg-mcg Tablet Active 1 TAB PO Daily April 03, 2019 5:52pm Start: 04-03-2019 take 1 tablet by radha th once daily Hbxifgkf-Kcr-Tl-Lycopen-Lutein (Centrum Silver) 0.4-300-250 mg-mcg-mcg Tablet Active 1 TAB PO Daily April 03, 2019 12:00am Start: 04-03-2019 take 1 tablet by radha th once daily Rjyqgtck-Rco-Mw-Lycopen-Lutein (Centrum Silver) 0.4-300-250 mg-mcg-mcg Tablet Active 1 TAB PO Daily April 02, 2019 11:00pm multivitamin capsule (20 sources) Start: 02-21-2010 multivitamin c apsule Take by mouth. 02/21/2010 Active Start: 02-21-2010 multivitamin c apsule Take by mouth. 0 02/21/2010 Active multivitamin with minerals iron-free (Centrum Silver) (15 sources) Start: 04-25-2019 take 1 tablet by mouth once daily multivitamin with minerals iron-free (Centrum Silver) Take 1 tablet by mouth once daily. 04/25/2019 Active Start: 04-25-2019 take 1 tablet by radha th once daily multivitamin with minerals iron-free (Centrum Silver) Take 1 tablet by mouth once daily. 0 04/25/2019 Active multivitamins w-minerals/lut(CENTRUM SILVER TAB) (20 sources) Start: 02-21-2010 multivitamins w-minerals/lut(CENTRUM SILVER TAB) Take one(1) tablet daily. 0 02/21/2010 Suspended Start: 02-21-2010 multivitamins w-minerals/lut(CENTRUM SILVER TAB) Take one(1) tablet daily. 0 02/21/2010 Active Comment on above: Take one(1) tablet d aily. mupirocin 0.02 mg/mg topical ointment (20 sources) RNA Synthetase Inhibitor Antibacterial Start: 01-18-2025 mupirocin (BACTROBAN) 2 % ointment Apply to affected area three times a day. 30 g 1 01/18/2025 Active MV with Bta-Ycyzftjn-Dylhfq (CENTRUM SILVER) 0.4 mg-300 mcg- 250 mcg tab (20 sources) take 1 tablet by mouth once daily MV with Ovs-Nzxstzjs-Etbhb n (CENTRUM SILVER) 0.4 mg-300 mcg- 250 mcg tab Take 1 tablet by mouth once daily. Active take 1 tablet by mouth once milka y MV with Gac-Iclkzqve-Zhysgj (CENTRUM SILVER) 0.4 mg-300 mcg- 250 mcg tab Take 1 tablet by mouth once daily. 0 Active Comment on above: Take 1 tablet by radha once daily. nitrofurantoin, macrocrystals 25 mg / nitrofurantoin, monohydrate 75 mg oral capsule (3 sources) Nitrofuran Antibacterial Start: 02-06-20 End: 02-11-20 take 1 capsule by mouth twice daily nitrofurantoin monohydrate and macrocrystal (MACROBID) 100 mg capsule Take 1 capsule by mouth twice daily for 5 days. 10 capsule 0 02/05/2023 02/10/2023 Active Comment on above: Take 1 capsule by mo [facility] twice daily for 5 days. nystatin 100 unt/mg topical powder (4 sources) Polyene Antifungal Start: 12-30-19 nystatin (MYCOSTATIN) powder Apply 1 Application topically in the morning and 1 Application at noon and 1 Application in the evening and 1 Application before bedtime. 15 g 1 12/29/2024 Active 2 ml ondansetron 2 mg/ml injection (20 sources) Serotonin-3 Receptor Antagonist Start: 03-13-20 End: 03-16-20 ondansetron orally disintegrating 4 mg tab(s) (ZOFRAN ODT) Start: 03-13-2022 End: 03-16-2022 ondansetron (PF) 4 mg inject ion (ZOFRAN) Start: 09-30-2019 End: 02-16-2024 take 1 tablet by mouth every six hours as needed for nausea and vomiting Ondansetron 4 mg Tablet,Disintegrating Discontinued 4 MG PO Every 6 hours as needed for Nausea And Vomiting September 30, 2019 12:00am February 07, 2022 4:10pm Start: 04-08-2019 End: 06-19-2019 take 1 tablet by mouth every eight hours as needed for nausea and vomiting Ondansetron 4 mg tablet,disintegrating Discontinued 4 MG PO Q8H as needed for nausea and vomiting 29 12April 07, 2019 11:00pm June 19, 2019 11:48am pantoprazole 40 mg delayed release oral tablet (20 sources) Proton Pump Inhibitor Start: 02-07-2022 take 1 tablet by mouth in the morning, then take 1 tablet by mouth at bedtime pantoprazole (PROTONIX) 40 mg EC tablet Take 1 tablet (40 mg total) by mouth in the morning and 1 tablet (40 mg total) before bedtime. 05/15/2022 Active Start: 09-12-2021 End: 10-17-2024 take 1 tablet by mouth twice daily pantoprazole DR (PROTONIX) 40 mg tablet Take 1 tablet by mouth twice daily 180 tablet 3 10/17/2024 Active Comment on above: Take 1 tablet [...] (PF) 0.9% 10 mL injection (DEFINITY) predniSONE 50 mg oral tablet (20 sources) Start: 08-08-2024 predniSONE (DE LTASONE) 50 mg tablet 08/08/2024 Active Start: 04-06-2024 End: 04-08-2024 take 50 mg by mouth once 50 mg, oral, Once, On Theresa at 1200, For 1 dose, Pre-Admission Testing Start: 09-22-2023 End: 02-16-2024 take 1 tablet by mouth in the morning predniSONE (DELTASONE) 20 mg tablet Indications: Subacute maxillary sinusitis Take 1 tablet (20 mg total) by mouth in the morning. 7 tablet 09/22/2023 02/16/2024 Discontinued (Therapy completed) Start: 09-30-2019 End: 02-07-2022 Prednisone 10 mg tablet Disc ontinued 0 .ROUTE .COMPLEX September 30, 2019 12:00am February 07, 2022 4:01pm 4 pills every morning for 2 days, then 3 pills every morning for 4 days, then 2 pills every morning for 4 days, then go back to usual dose of prednisone every day after that. Start: 09-30-2019 End: 02-07-2022 Prednisone 5 mg tablet Disco ntinued 0 .ROUTE .COMPLEX September 30, 2019 12:00am February 07, 2022 4:01pm second part of prednisone taper: take 2 pills a day for 4 days, then 1 pill a day for 4 days, then 1 pill every other day x 2 doses, then stop. Start: 06-19-2019 End: 09-30-2019 take 10 mg by mouth once daily Prednisone 20 mg tablet Discontinued 10 MG PO Daily June 19, 2019 11:45am September 30, 2019 11:10am Start: 06-19-2019 End: 09-30-2019 take 10 mg by mouth once daily Prednisone Discontinued 10 MG PO Daily June 19, 2019 12:45pm September 30, 2019 12:10pm Start: 05-12-2019 End: 06-19-2019 take 2 tablets by mouth once daily Prednisone 20 mg tablet Discontinued 40 MG PO Daily 60 May 11, 2019 11:00pm June 19, 2019 11:45am Start: 05-12-2019 End: 06-19-2019 take 40 mg by mouth once daily Prednisone Discontinued 40 MG PO Daily 60 May 12, 2019 12:00am June 19, 2019 12:45pm Start: 07-15-2017 End: 09-01-2023 take 1 tablet by mouth in the morning predniSONE (DELTASONE) 20 mg tablet Indications: Subacute maxillary sinusitis Take 1 tablet (20 mg total) by mouth in the morning. 7 tablet 09/22/2023 Active End: 03-13-2022 PREDNISONE ORAL Pt states on ly taking medication before infusions. 0 03/13/2022 Discontinued PREDNISONE ORAL Pt states only taking medication before infusions. 0 Active Comment on above: Pt states only takin g medication before infusions. prochlorperazine 5 mg/ml injectable solution (3 sources) Phenothiazine Start: End: prochlorperazine 5 mg injection (COMPAZINE) 125 ml sodium chloride 9 mg/ml prefilled syringe (20 sources) Start: End: sodium chloride 0.9 % (flush) 10 mL (BD POSIFLUSH) sucralfate 100 mg/ml oral suspension (20 sources) Aluminum Complex Start: End: take 10 mL by mouth four times daily sucralfate (CARAFATE) 100 mg/mL suspension Take 10 mL by mouth four times daily. 420 mL 1 10/16/2021 Active Comment on above: Take 10 mL by mouth four times daily. Sucralfate (Carafate) 100 mg/mL Suspension (8 sources) Start: take 1 mL by mouth four times daily Sucralfate (Carafate) 100 mg/mL Suspension Active 10 ML PO Four times daily February 07, 2022 4:59pm Start: 02-07-2022 End: 11-25-2023 take 1 mL by mouth four times daily Sucralfate (Carafate) 100 mg/mL Suspension Discontinued 10 ML PO Four times daily February 06, 2022 11:00pm November 25, 2023 9:47am Start: 02-07-2022 End: 11-25-2023 take 1 mL by mouth four times daily Sucralfate (Carafate) 100 mg/mL Suspension Discontinued 10 ML PO Four times daily February 07, 2022 12:00am November 25, 2023 10:47am Start: 02-07-2022 take 1 mL by mouth f our times daily Sucralfate (Carafate) 100 mg/mL Suspension Active 10 ML PO Four times daily February 06, 2022 11:00pm 24 hr venlafaxine 150 mg extended release oral capsule (20 sources) Serotonin and Norepinephrine Reuptake Inhibitor Start: 06-11-2023 End: 12-09-2024 take 1 capsule by mouth every twenty-four hours in the morning venlafaxine XR (EFFEXOR-XR) 150 mg 24 hr capsule Take 1 capsule by mouth in the morning 90 capsule 1 12/09/2024 Active Start: 04-03-2019 End: 11-25-2023 take 1 capsule by mouth once daily venlafaxine ER (EFFEXOR XR) 150 mg 24 hr capsule Take 1 capsule by mouth once daily. 90 capsule 3 10/23/2020 Active Comment on above: Take 1 capsule by mo [facility] once daily. Vitamin B Complex (20 sources) Start: 05-02-2010 vitamin b complex(B COMPLEX TAB) one daily 0 05/02/2010 Suspended Start: 05-02-2010 vitamin b comp patricia(B COMPLEX TAB) one daily 0 05/02/2010 Active Comment on above: one daily Vitamin B Complex (B Complex 1) Tablet (8 sources) Start: 04-03-2019 take 1 tablet by mouth once daily Vitamin B Complex (B Complex 1) Tablet Active 100 MG PO Daily April 03, 2019 5:52pm Start: 04-03-2019 End: 11-25-2023 take 1 tablet by mouth once daily Vitamin B Complex (B Complex 1) Tablet Discontinued 100 MG PO Daily April 02, 2019 11:00pm November 25, 2023 9:48am Start: 04-03-2019 End: 11-25-2023 take 1 tablet by mouth once daily Vitamin B Complex (B Complex 1) Tablet Discontinued 100 MG PO Daily April 03, 2019 12:00am November 25, 2023 10:48am Start: 04-03-2019 take 1 tablet by radha once daily Vitamin B Complex (B Complex 1) Tablet Active 100 MG PO Daily April 02, 2019 11:00pm vitamin B complex (B COMPLEX ) tablet extended release (20 sources) Start: 05-02-2010 vitamin B comp patricia (B COMPLEX) tablet extended release Take by mouth. 05/02/2010 Active Start: 05-02-2010 vitamin B comp patricia (B COMPLEX) tablet extended release Take by mouth. 0 05/02/2010 Active Completed/Discontinued Medications Medication Drug Class(es) Dates Sig (Normalized) Sig (Original) acetaminophen 500 mg oral tablet (20 sources) Start: 01-26-2025 End: 01-26-2025 take 1 dose by mouth once 1,000 mg, ORAL, ONCE, 1 dose, On Theresa 01/26/25 at 0900 Start: 12-01-2024 End: 12-01-2024 take 1 dose by mouth once 1,000 mg, ORAL, ONCE, 1 dose , On Theresa 12/01/24 at 0900 Start: 10-06-2024 End: 10-06-2024 take 1 dose by mouth once 1,000 mg, ORAL, ONCE, 1 dose , On Theresa 10/06/24 at 0900 Start: 08-11-2024 End: 12-26-2024 take 1 dose by mouth once 1,000 mg, ORAL, ONCE, 1 dose , On Theresa 08/11/24 at 1000 Start: 06-14-2024 End: 06-14-2024 take 1 dose by mouth once 1,000 mg, ORAL, ONCE, 1 dose , On Thu06/14/24 at 0930 Start: 04-19-2024 End: 04-19-2024 take 1 dose by mouth once 1,000 mg, ORAL, ONCE, 1 dose , On Thu04/19/24 at 1030 Start: 02-23-2024 End: 02-23-2024 acetaminophen 1,000 mg tab(s ) (TYLENOL) Start: 12-24-2023 End: 12-24-2023 acetaminophen 1,000 mg tab(s ) (TYLENOL) Start: 08-27-2022 take 1 tablet by radha th every four hours as needed acetaminophen (TYLENOL) 500 mg tablet Take 1 tablet by mouth every 4 hours as needed for pain. 08/27/2022 Active Start: 03-13-2022 End: 03-16-2022 acetaminophen 650 mg tab(s) (TYLENOL) Start: 04-03-2019 End: 06-19-2019 take 1 tablet by mouth every six hours as needed for pain Acetaminophen 500 mg Tablet Discontinued 500 MG PO Q6H as needed for Pain April 02, 2019 11:00pm June 19, 2019 11:46am Start: 12-25-2016 acetaminophen (TYLENOL) 325 mg tablet 12/25/2016 Active Start: 12-25-2016 acetaminophen (TYLENOL) 325 mg tablet Take 2 tablets by mouth. Pre med 12/25/2016 Active Comment on above: Take 1 tablet by radha th every 4 hours as needed for pain. ALPRAZolam 0.5 mg oral tablet (8 sources) Benzodiazepine Start: 04-09-20 End: 05-08-20 take 1 tablet by mouth once daily at bedtime as needed for anxiety Alprazolam (Xanax) 0.5 mg tablet Discontinued 0.5 MG PO Daily at bedtime as needed for anxiety 06 05April 08, 2019 11:00pm May 08, 2019 10:52am amLODIPine 5 mg oral tablet (20 sources) Dihydropyridine Calcium Channel Girish Start: 04-03-20 End: 02-16-20 take 1 tablet by mouth once daily Amlodipine 5 mg Tablet Discontinued 5 MG PO Daily June 18, 2019 11:00pm September 18, 2019 3:31pm amylase [id number] unt / lipase [id number] unt / protease [id number] unt delayed release oral capsule (8 sources) Start: 09-30-19 End: 02-08-20 take 57745-50119 capsules by mouth once Ltpvzv-Iqjzxnmm-Rkpz ase (Creon) 24,000-76,000 -120,000 unit Capsule,Delayed Release(Dr/Ec) Discontinued 3 CAP PO 3x/Day with meals 300 30 September 30, 2019 12:00am February 07, 2022 4:11pm Further refills per GI Dr. Carrasco aspirin 81 mg delayed release oral tablet (12 sources) Platelet Aggregation Inhibitor, Nonsteroidal Anti-inflammatory Drug Start: 02-15-20 End: 03-29-20 take 1 tablet by mouth in the morning aspirin 81 mg Take 1 tablet (81 mg total) by mouth in the morning. 03/29/2024 06/30/2024 Discontinued (Therapy completed) B complex-vitamin C-folic acid (Dialyvite) 100-1 mg tablet (5 sources) Start: 04-25-20 End: 01-05-20 take 1 tablet by mouth once daily B complex-vitamin C-folic acid (Dialyvite) 100-1 mg tablet Take 1 tablet by mouth once daily. 04/25/2019 01/05/2024 Discontinued (Med List Cleanup) Start: 04-25-2019 take 1 tablet by radha once daily B complex-vitamin C-folic acid (Dialyvite) 100-1 mg tablet Take 1 tablet by mouth once daily. 0 04/25/2019 Active belimumab 1,164 mg in NaCl 0.9% 250 mL (BENLYSTA) (1 source) Start: 01-26-2025 End: 01-26-2025 1,164 mg (10 mg/kg/dose 116.4 kg), INTRAVENOUS, at 250 mL/hr, Administer over 60 Minutes, ONCE, 1 dose, On Theresa 01/26/25 at 0900, Run over 60-120 minutes EXP: 1600 01/26/25 REFRIGERATE Protect From Light belimumab 1,169 mg in NaCl 0.9% 250 mL (BENLYSTA) (1 source) Start: 10-06-2024 End: 10-06-2024 1,169 mg (10 mg/kg/dose 116.9 kg), INTRAVENOUS, at 250 mL/hr, Administer over 60 Minutes, ONCE, 1 dose, On Thu10/06/24 at 0900, Run over 60-120 minutes EXP: 159910/06/24 REF Protect From Light belimumab 1,179 mg in NaCl 0.9% 250 mL (BENLYSTA) (1 source) Start: 12-24-2023 End: 12-24-2023 belimumab 1,179 mg in NaCl 0.9% 250 mL (BENLYSTA) belimumab 1,184 mg in NaCl 0.9% 250 mL (BENLYSTA) (1 source) Start: 12-01-2024 End: 12-01-2024 1,184 mg (10 mg/kg/dose 118.4 kg), INTRAVENOUS, at 250 mL/hr, Administer over 60 Minutes, ONCE, 1 dose, On Thu12/01/24 at 0900, Run over 60-120 minutes EXP: 159912/01/24 ROOM TEMP OR REFRIGERATED Protect From Light belimumab 1,190 mg in NaCl 0.9% 250 mL (BENLYSTA) (1 source) Start: 02-23-2024 End: 02-23-2024 belimumab 1,190 mg in NaCl 0.9% 250 mL (BENLYSTA) belimumab 1,203 mg in NaCl 0.9% 250 mL (BENLYSTA) (1 source) Start: 06-14-2024 End: 06-14-2024 1,203 mg (10 mg/kg/dose 120.3 kg), INTRAVENOUS, at 250 mL/hr, Administer over 60 Minutes, ONCE, 1 dose, On Thu06/14/24 at 0930, Run over 60-120 minutes EXP: 159906/14/24 REF Protect From Light belimumab 1,206 mg in NaCl 0.9% 250 mL (BENLYSTA) (1 source) Start: 08-11-2024 End: 08-11-2024 1,206 mg (10 mg/kg/dose 120.6 kg), INTRAVENOUS, at 250 mL/hr, Administer over 60 Minutes, ONCE, 1 dose, On Thu08/11/24 at 1000, Run over 60-120 minutes EXP: 159908/11/24 Room Temp Protect From Light belimumab 1,211 mg in NaCl 0.9% 250 mL (BENLYSTA) (1 source) Start: 04-19-2024 End: 04-19-2024 1,211 mg (10 mg/kg/dose 121.1 kg), INTRAVENOUS, at 250 mL/hr, Administer over 60 Minutes, ONCE, 1 dose, On Thu04/19/24 at 1030, Total Volume - EXP: 1600 04/19/24 REF or Room Temp Protect From Light calcium carbonate 500 mg chewable tablet (20 sources) Start: 08-27-2022 take 500 mg by mouth every hour [...] (Calcium 600 + D(3)) 600-125 mg-unit Tablet (5 sources) Start: 09-18-2019 End: 02-07-2022 take 2 tablets by mouth once daily Calcium Carbonate-Vitamin D3 (Calcium 600 + D(3)) 600-125 mg-unit Tablet Discontinued 2 TAB PO Daily September 18, 2019 1:00am February 07, 2022 5:11pm Start: 09-18-2019 End: 02-07-2022 take 2 tablets by mouth once daily Calcium Carbonate-Vitamin D3 (Calcium 600 + D(3)) 600-125 mg-unit Tablet Discontinued 2 TAB PO Daily September 18, 2019 12:00am February 07, 2022 4:11pm carvedilol 12.5 mg oral tablet (15 sources) alpha-Adrenergic Girish, beta-Adrenergic Girish Start: 04-03-2019 End: 04-09-2019 take 1 tablet by mouth twice daily Carvedilol 12.5 mg Tablet Discontinued 12.5 MG PO Twice daily April 02, 2019 11:00pm April 09, 2019 11:17am carvedilol (Core g) 12.5 MG tablet every 12 (twelve) hours Active Centrum Silver Oral Tablet (8 sources) Start: 04-25-2019 take 1 tablet by mouth once daily Centrum Silver Oral Tablet TAKE 1 TABLET DAILY. Quantity: 0 Refills: 0 Ordered: 25-Apr-2019 DO Start : 25-Apr-2019 Active cephalexin 500 mg oral capsule (20 sources) Cephalosporin Antibacterial Start: 02-12-2023 take 1 capsule by mouth four times daily cephALEXin (KEFLEX) 500 mg capsule Take 1 capsule by mouth four times daily. 28 capsule 0 02/12/2023 Active Start: 02-09-2022 End: 11-25-2023 take 1 capsule by mouth every six hours Cephalexin 500 mg capsule Discontinued 500 MG PO Q6H 12 February 08, 2022 11:00pm November 25, 2023 9:44am Start: 09-30-2019 End: 02-07-2022 take 1 capsule by mouth three times daily Cephalexin (Keflex) 500 mg capsule Discontinued 500 MG PO Three times daily 9 September 30, 2019 12:00am February 07, 2022 4:08pm Comment on above: Take 1 capsule by mo [facility] four times daily. cholestyramine resin 4000 mg powder for oral suspension (20 sources) Bile Acid Sequestrant Start: 09-18-2023 End: 12-22-2023 Cholestyramine (With Sugar) (Questran) 4 gram powder in packet Discontinued EACH PO Three times daily September 18, 2023 12:00am November 25, 2023 9:44am Start: 02-07-2022 End: 11-25-2023 Cholestyramine-Aspartame 4 g phil Powder Discontinued 4 GM PO Twice daily February 06, 2022 11:00pm November 25, 2023 9:44am Start: 10-16-2021 End: 10-17-2022 take 4 g by mouth twice daily at mealtime cholestyramine-sucrose (QUESTRAN) 4 gram powder Take 4 g by mouth twice daily with meals. 240 g 3 10/16/2021 10/17/2022 Discontinued Comment on above: Take 4 g by mouth tw ice daily with meals. Take 4 g by mouth th ree times daily with meals. cilgavimab 300 mg intramuscular injection (EVUSHELD) (1 source) Start: 2021 End: 2021 cilgavimab 300 mg intramuscular injection (EVUSHELD) dextromethorphan hydrobromide 1.5 mg/ml / pyrilamine maleate 1.5 mg/ml oral solution (11 sources) Uncompetitive X-elzwqy-Z-aspartate Receptor Antagonist, Sigma-1 Agonist Start: 2022 End: 2023 take 5 mL by mouth four times daily as needed for cough and congestion pyrilamine-dextrome thorphan 7.5-7.5 mg/5 mL liquid Indications: Subacute maxillary sinusitis Take 5 mL by mouth 4 (four) times a day as needed (cough and congestion). 200 mL 1 09/22/2023 02/16/2024 Discontinued (Therapy completed) dicloxacillin 500 mg oral capsule (2 sources) Penicillin-class Antibacterial Start: 2022 End: 2022 take 1 capsule by mouth four times daily dicloxacillin (DYNAPEN) 500 mg capsule Take 1 capsule by mouth four times daily. 28 capsule 0 01/08/2023 01/22/2023 Discontinued (Course of therapy completed) Comment on above: Take 1 capsule by [facility] four times daily. 24 hr dilTIAZem hydrochloride 180 mg extended release oral capsule (8 sources) Calcium Channel Girish Start: 2018 End: 2018 take 1 capsule by mouth once daily Diltiazem Hcl 180 mg Capsule,Extended Release 24hr Discontinued 180 MG PO Daily May 11, 2019 11:00pm June 19, 2019 11:46am 1 ml EPINEPHrine 1 mg/ml injection (3 sources) alpha-Adrenergic Agonist, beta-Adrenergic Agonist, Catecholamine Start: 2021 End: 2021 EPINEPHrine 1 mg/mL (1 mL) 0.3 mg injection ezetimibe 10 mg oral tablet (8 sources) Dietary Cholesterol Absorption Inhibitor Start: 2018 End: 2019 take 1 tablet by mouth once daily Ezetimibe 10 mg Tablet Discontinued 10 MG PO Daily April 02, 2019 11:00pm September 30, 2019 11:09am flecainide acetate 150 mg oral tablet (17 sources) Antiarrhythmic Start: 2023 End: 2024 take 1 tablet by mouth twice daily flecainide (Tambocor) 150 mg tablet Indications: Paroxysmal atrial fibrillation (CMS/HCC) Take 1 tablet (150 mg) by mouth 2 times a day. 180 tablet 3 10/29/2023 11/16/2023 Discontinued (Other) Start: 09-17-2023 End: 12-08-2023 take 1 tablet by mouth every twelve hours Flecainide 100 mg tablet Discontinued 100 MG PO Q12H September 18, 2023 12:00am November 25, 2023 9:48am Start: 09-17-2023 End: 09-16-2024 take 1 tablet by mouth twice daily flecainide (Tambocor) 100 mg tablet Indications: Paroxysmal atrial fibrillation (CMS/HCC) Take 1 tablet (100 mg) by mouth 2 times a day. 180 tablet 3 09/17/2023 10/29/2023 Discontinued (Dose adjustment) Comment on above: Take 1 tablet by radha every 12 hours. fluticasone propionate 0.05 mg/actuat metered dose nasal spray (8 sources) Corticosteroid Start: 2023 End: 2024 take 2 spray(s) nasal route in the morning fluticasone propionate (FLONASE) 50 mcg/actuation nasal spray Administer 2 sprays into each nostril in the morning. 16 g 1 07/11/2024 11/28/2024 Discontinued (Therapy completed) hydroCHLOROthiazide 25 mg / metoprolol tartrate 100 mg oral tablet (2 sources) Thiazide Diuretic, beta-Adrenergic Girish End: 2023 metoprolol ta-hydroCHLOROthiaz (LOPRESSOR HCT) 100-25 mg per tablet hydrocortisone 100 mg injection (3 sources) Corticosteroid Start: 2021 End: 2021 hydrocortisone sodium succinate (PF) 100 mg injection (Solu-CORTEF) hyoscyamine sulfate 0.125 mg sublingual tablet (11 sources) End: 2023 hyoscyamine (LEVSIN) 0.125 mg SL tablet 03/30/2024 Discontinued (Therapy completed) iohexol (OMNIPaque) 350 mg iodine/mL solution 70 mL (2 sources) Start: 2023 End: 2023 70 mL, intravenous, Once in imaging, Starting on 08/15/24 at 1151, For 1 dose Start: 04-07-2024 End: 04-07-2024 70 mL, intravenous, Once in imaging, Starting on Theresa 04/07/24 at 1217, For 1 dose iv contrast (will be provide d with radiology test) (20 sources) Start: 09-30-2023 End: 09-30-2024 iv contrast (will be provide d with radiology test) Indications: Pancreatic cyst MRI [...] MR contrast administration guidelines link. 1 Each 09/30/2023 09/30/2024 Discontinued (Discontinued by Patient) Start: 09-30-2023 iv contrast (w ill be provided with radiology test) Indications: Pancreatic cyst MRI PANC/JAENIE Inject, intravenously, once for 1 dose. No [...] MR contrast administration guidelines link. 1 Each 09/30/2023 Active Start: 09-30-2023 iv contrast (w ill be provided with radiology test) Indications: Pancreatic [...] in the MR contrast administration guidelines link 10 ml lidocaine hydrochloride 10 mg/ml injection (4 sources) Antiarrhythmic, Amide Local Anesthetic Start: 03-10-2025 End: 03-10-2025 lidocaine (PF) 10 mg/mL (1 %) 4 mL injection (XYLOCAINE) Start: 03-10-2025 End: 03-10-2025 4 mL, Injection - FOR ORTHO USE ONLY, ONCE, 1 dose, Starting on Thu03/10/25 at 0948, Until Thu03/10/25 at 0948 Start: 05-20-2024 End: 05-20-2024 lidocaine (PF) 10 mg/mL (1 % ) 4 mL injection (XYLOCAINE) Start: 05-20-2024 End: 05-20-2024 4 mL, Injection - FOR ORTHO USE ONLY, ONCE, 1 dose, Starting on Thu05/20/24 at 1028, Until Thu05/20/24 at 1028 lisinopril 20 mg oral tablet (16 sources) Angiotensin Converting Enzyme Inhibitor Start: 09-18-2019 End: 09-30-2019 take 1 tablet by mouth once daily Lisinopril 20 mg Tablet Discontinued 20 MG PO Daily September 18, 2019 12:00am September 30, 2019 11:09am Start: 04-03-2019 End: 04-09-2019 take 1 tablet by mouth once daily Lisinopril 20 mg Tablet Discontinued 20 MG PO Daily April 02, 2019 11:00pm April 09, 2019 11:17am loperamide hydrochloride 2 mg oral capsule (8 sources) Opioid Agonist Start: 05-12-2019 End: 06-19-2019 take 1 capsule by mouth every four hours as needed for diarrhea Loperamide 2 mg Capsule Discontinued 2 MG PO Q4H as needed for Diarrhea May 11, 2019 11:00pm June 19, 2019 11:46am magnesium oxide 400 mg oral tablet (8 sources) Start: 04-09-2019 End: 09-18-2019 take 1 tablet by mouth twice daily Magnesium Oxide 400 mg (241.3 mg magnesium) Tablet Discontinued 400 MG PO Twice daily April 08, 2019 11:00pm September 18, 2019 3:31pm Mesalamine (Lialda) 1.2 gram Tablet,Delayed Release (Dr/Ec) (8 sources) Start: 05-12-2019 End: 06-19-2019 take 4 tablets by mouth once daily Mesalamine (Lialda) 1.2 gram Tablet,Delayed Release (Dr/Ec) Discontinued 4.8 GM PO Daily May 12, 2019 2:54pm June 19, 2019 12:45pm Start: 05-12-2019 End: 06-19-2019 take 4 tablets by mouth once daily Mesalamine (Lialda) 1.2 gram Tablet,Delayed Release (Dr/Ec) Discontinued 4.8 GM PO Daily May 12, 2019 12:00am June 19, 2019 12:45pm Start: 05-12-2019 End: 06-19-2019 take 4 tablets by mouth once daily Mesalamine (Lialda) 1.2 gram Tablet,Delayed Release (Dr/Ec) Discontinued 4.8 GM PO Daily May 11, 2019 11:00pm June 19, 2019 11:45am methylPREDNISolone 40 mg injection (20 sources) Corticosteroid Start: 01-26-2025 End: 01-26-2025 40 mg, INTRAVENOUS, ONCE, 1 dose, On Theresa 01/26/25 at 0900 Start: 12-01-2024 End: 12-01-2024 40 mg, INTRAVENOUS, ONCE, 1 dose, On Theresa 12/01/24 at 0900 Start: 10-06-2024 End: 10-06-2024 40 mg, INTRAVENOUS, ONCE, 1 dose, On Theresa 10/06/24 at 0900 Start: 08-11-2024 End: 08-11-2024 40 mg, INTRAVENOUS, ONCE, 1 dose, On Theresa 08/11/24 at 1000 Start: 07-11-2024 End: 10-11-2024 take 1 tablet by mouth in the morning methylPREDNISolone (MEDROL, CELESTE,) 4 mg tablet Take 1 tablet (4 mg total) by mouth in the morning. follow package directions. 21 tablet 07/11/2024 10/11/2024 Discontinued (Therapy completed) Start: 06-14-2024 End: 06-14-2024 40 mg, INTRAVENOUS, ONCE, 1 dose, On Thu06/14/24 at 0930 Start: 04-19-2024 End: 04-19-2024 40 mg, INTRAVENOUS, ONCE, 1 dose, On Thu04/19/24 at 1030 Start: 02-23-2024 End: 02-23-2024 methylPREDNISolone sod succi pily(PF) 40 mg injection (SOLU-Medrol) Start: 12-24-2023 End: 12-24-2023 methylPREDNISolone sod succi pily(PF) 60 mg injection (SOLU-Medrol) Start: 03-21-2021 End: 01-01-2022 methylPREDNISolone (MEDROL DOSE-PACK) 4 mg Dose-Pack As Instructed per package 1 Package 0 03/21/2021 01/01/2022 Discontinued (Other) Start: 03-21-2021 methylPREDNISo lone (MEDROL DOSE-PACK) 4 mg Dose-Pack As Instructed per package 1 Package 0 03/21/2021 Active Start: 09-18-2019 End: 09-30-2019 take 40 mg intravenously every three months Methylprednisolone Sodium Succ 40 mg Recon Soln Discontinued 40 MG IV As Directed September 18, 2019 12:00am September 30, 2019 11:10am EVERY THREE MONTHS Start: 04-03-2019 End: 05-12-2019 Methylprednisolone Sodium Mejia cc 40 mg Recon Soln Discontinued 60 MG IV As Directed April 02, 2019 11:00pm May 12, 2019 1:58pm Start: 04-03-2019 End: 05-12-2019 Methylprednisolone Sodium Mejia cc Discontinued 60 MG IV As Directed April 03, 2019 12:00am May 12, 2019 2:58pm Comment on above: As Instructed per joseph mace mycophenolate mofetil 500 mg oral tablet (20 sources) Start: 04-03-20 End: 11-25-19 take 1 tablet by mouth at bedtime Mycophenolate Mofetil 500 mg Tablet Discontinued 1000 MG PO Bedtime April 02, 2019 11:00pm November 25, 2023 9:47am Start: 04-03-2019 End: 11-25-2023 take 1000 mg by mouth at bedtime Mycophenolate Mofetil Discontinued 1000 MG PO Bedtime April 03, 2019 12:00am November 25, 2023 10:47am Start: 12-25-2016 End: 09-01-2023 mycophenolate (CELLCEPT) 500 mg tablet Take 2 tablets (1,000 mg total) by mouth. 0 12/25/2016 09/01/2023 Discontinued (Discontinued by another clinician) Comment on above: take 2 tablets by mo [facility] daily take 1 tablet by radha th daily omeprazole 40 mg delayed release oral capsule (9 sources) Proton Pump Inhibitor Start: 2 End: take 1 capsule by mouth twice daily omeprazole (PRILOSEC) 40 mg capsule Indications: Epigastric pain Take 1 capsule by mouth twice daily. 60 capsule 3 09/04/2021 09/12/2021 Discontinued Start: 04-08-2019 End: 02-07-2022 take 1 capsule by mouth once daily Omeprazole 40 mg capsule,delayed release(DR/EC) Discontinued 40 MG PO Daily April 07, 2019 11:00pm February 07, 2022 4:10pm Comment on above: Take 1 capsule by [facility] twice daily. raNITIdine 150 mg oral tablet (2 sources) Histamine-2 Receptor Antagonist Start: 06-11-20 End: 09-01-19 ranitidine (ZANTAC) 150 mg tablet Take 1 tablet (150 mg total) by mouth. 0 06/11/2017 09/01/2023 Discontinued (Therapy completed) semaglutide, weight loss, (WEGOVY) 0.25 mg/0.5 mL pen injector (2 sources) Start: 06-30-20 End: 07-11-20 inject 0.5 mL by subcutaneous injection every week semaglutide, weight loss, (WEGOVY) 0.25 mg/0.5 mL pen injector Inject 0.5 mL (0.25 mg total) under the skin once a week. 2 mL 2 06/30/2024 07/11/2024 Discontinued (Formulary change) Start: 06-30-2024 inject 0.5 mL by sub cutaneous injection every week semaglutide, weight loss, (WEGOVY) 0.25 mg/0.5 mL pen injector Inject 0.5 mL (0.25 mg total) under the skin once a week. 2 mL 2 06/30/2024 Active simvastatin 40 mg oral tablet (7 sources) HMG-CoA Reductase Inhibitor End: 02-16-2024 simvastatin (ZOCOR) 40 mg tablet Take 1 tablet (40 mg total) by mouth. 02/16/2024 Discontinued (Discontinued by another clinician) spironolactone 50 mg oral tablet (20 sources) Aldosterone Antagonist Start: 09-30-2019 End: 12-29-2024 spironolactone (ALDACTONE) 50 mg tablet Take 1 tablet (50 mg total) by mouth. 03/22/2024 12/29/2024 Discontinued Start: 09-18-2019 End: 09-30-2019 take 1 tablet by mouth once daily Spironolactone 25 mg Tablet Discontinued 25 MG PO Daily September 18, 2019 12:00am September 30, 2019 11:09am Comment on above: Take 50 mg by mouth once daily. tixagevimab 300 mg intramuscular injection (EVUSHELD) (1 source) Start: 2 End: 2 tixagevimab 300 mg intramuscular injection (EVUSHELD) torsemide 20 mg oral tablet (8 sources) Loop Diuretic Start: 0 End: 0 take 2 tablets by mouth once daily Torsemide 20 mg Tablet Discontinued 40 MG PO Daily September 18, 2019 12:00am September 30, 2019 11:09am Start: 09-18-2019 End: 09-30-2019 take 40 mg by mouth once daily Torsemide Discontinued 40 MG PO Daily September 18, 2019 1:00am September 30, 2019 12:09pm 1 ml triamcinolone acetonide 40 mg/ml injection (6 sources) Corticosteroid Start: 03-10-2025 End: 03-10-2025 triamcinolone acetonide 40 mg injection (KeNALog 40) Start: 03-10-2025 End: 03-10-2025 40 mg, Injection - FOR ORTHO USE ONLY, ONCE, 1 dose, Starting on Thu03/10/25 at 0948, Until Thu03/10/25 at 0948 Start: 11-28-2024 End: 11-28-2024 triamcinolone acetonide (GIA ALOG-40) injection 40 mg Start: 11-28-2024 End: 11-28-2024 40 mg, intra-articular, Once , On Thu11/28/24 at 1445, For 1 dose Start: 05-20-2024 End: 05-20-2024 triamcinolone acetonide 40 m g injection (KeNALog 40) Start: 05-20-2024 End: 05-20-2024 40 mg, Injection - FOR ORTHO USE ONLY, ONCE, 1 dose, Starting on Thu05/20/24 at 1028, Until Thu05/20/24 at 1028 Turmeric extract (8 sources) Start: 04-03-2019 End: 06-19-2019 take 400 mg by mouth once daily Turmeric Discontinued 400 MG PO Daily April 03, 2019 5:52pm June 19, 2019 12:48pm Start: 04-03-2019 End: 06-19-2019 take 1 capsule by mouth once daily Turmeric 400 mg Capsule Discontinued 400 MG PO Daily April 02, 2019 11:00pm June 19, 2019 11:48am Start: 04-03-2019 End: 06-19-2019 take 400 mg by mouth once daily Turmeric Discontinued 400 MG PO Daily April 03, 2019 12:00am June 19, 2019 12:48pm Start: 04-03-2019 End: [...] by mo uth four times daily for 10 days. Take 1 capsule by mo uth four times daily for 14 days. Take 1 capsule by mo uth four times daily for 14 days, THEN 1 capsule twice daily for 7 days, THEN 1 capsule once daily for 7 days, THEN 1 capsule every other day in the morning for 14 days. Vitamin B Complex Oral Tablet (8 sources) Start: 04-25-2019 take 1 tablet by mouth once daily Vitamin B Complex Oral Tablet TAKE 1 TABLET DAILY. Quantity: 0 Refills: 0 Ordered: 25-Apr-2019 DO Start : 25-Apr-2019 Active warfarin sodium 5 mg oral tablet (15 sources) Vitamin K Antagonist Start: 11-22-2010 End: 02-16-2024 take 1 tablet by mouth once daily Warfarin 5 mg Tablet Discontinued 5 MG PO Daily April 02, 2019 11:00pm May 08, 2019 10:49am Problems Active Problems Problem Classification Problem Date Documented Da te Episodic/Chronic Abdominal pain (11 sources) Epigastric pain; Translations: [Epigastric pain] Onset: 2 09-18-2019 Episodic Acquired foot deformities (20 sources) Acquired hallux valgus; Translations: [Hallux valgus (acquired), unspecified foot] Onset: 4 01-02-2014 Chronic Administrative/social admission (1 source) Repeated prescription; Translations: [Encounter for issue of repeat prescription] Episodic Anxiety disorders (1 source) Anxiety; Translations: [Anxiety disorder, unspecified] 03-30-2024 Chronic Aortic; peripheral; and visceral artery aneurysms (20 sources) Aneurysm of ascending aorta; Translations: [Thoracic aortic aneurysm, without rupture] Onset: 2 10-29-2021 Chronic Asthma (20 sources) Reactive airway disease; Translations: [Unspecified asthma, uncomplicated] Onset: 6 07-22-2022 Chronic Cardiac dysrhythmias (20 sources) Paroxysmal atrial fibrillation; Translations: [Atrial fibrillation] Onset: 0 Resolved: 5 12-19-2020 Chronic Chronic kidney disease (20 sources) Chronic kidney disease stage 3; Translations: [Stage 3 chronic kidney disease] Onset: 4 04-04-2019 Chronic Chronic kidney disease (2 sources) Chronic kidney disease; Translations: [Chronic kidney disease, stage 3a] Onset: 4 Chronic ulcer of skin (4 sources) Ulcer of toe; Translations: [Non-pressure chronic ulcer of other part of right foot limited to breakdown of skin] Chronic Coagulation and hemorrhagic disorders (20 sources) Thrombocytopenic disorder; Translations: [Thrombocytopenia, unspecified] Onset: 3 Resolved: 4 04-10-2023 Chronic Complications of surgical procedures or medical care (1 source) History of parathyroidectomy; Translations: [Postprocedural hypoparathyroidism] Chronic Congestive heart failure; nonhypertensive (20 sources) Chronic congestive heart failure; Translations: [Heart failure, unspecified] Onset: 9 Resolved: 4 12-19-2020 Chronic Deficiency and other anemia (5 sources) Anemia, unspecified; Translations: [Anemia, unspecified] Onset: 4 Episodic Digestive congenital anomalies (1 source) Congenital pancreatic cyst; 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] 09-30-2023 Chronic Disorders of lipid metabolism (20 sources) Mixed hyperlipidemia; Translations: [Mixed hyperlipidemia] Onset: 1 03-05-2021 Chronic Diverticulosis and diverticulitis (20 sources) Diverticulosis of large intestine without perforation or abscess without bleeding; Translations: [Diverticulitis of sigmoid colon] Onset: 2 07-22-2022 Chronic Esophageal disorders (2 sources) Gastroesophageal reflux disease without esophagitis; Translations: [Gastro-esophageal reflux disease without esophagitis] 04-15-2023 Chronic Essential hypertension (20 sources) Essential hypertension; Translations: [Essential (primary) hypertension] Onset: 0 12-19-2020 Chronic Fever of unknown origin (1 source) Fever, unspecified; Translations: [FEVER UNSPECIFIED] Onset: 3 Episodic Fracture of lower limb (9 sources) Closed fracture of navicular bone of foot; Translations: [Nondisplaced fracture of navicular [scaphoid] of right foot, initial encounter for closed fracture] Onset: 5 12-21-2024 Episodic Fracture of lower limb (5 sources) Closed fracture of left foot; Translations: [Unspecified fracture of left foot, initial encounter for closed fracture] Onset: 5 01-23-2025 Episodic Gastroduodenal ulcer (except hemorrhage) (20 sources) Gastric ulcer; Translations: [Gastric ulcer, unspecified as acute or chronic, without hemorrhage or perforation] Onset: 6 07-22-2022 Chronic Heart valve disorders (1 source) Nonrheumatic aortic (valve) stenosis; Translations: [Nonrheumatic aortic (valve) stenosis] Onset: 5 Chronic Intestinal infection (3 sources) Clostridium difficile diarrhea; Translations: [Enterocolitis due to Clostridium difficile, not specified as recurrent] Onset: 3 Episodic Malaise and fatigue (9 sources) Asthenia; Translations: [Weakness] 02-08-2022 Episodic Menopausal disorders (1 source) Postmenopausal bleeding; Translations: [Postmenopausal bleeding] 11-16-2023 Chronic Mood disorders (20 sources) Chronic depression; Translations: [Chronic depression] Onset: 2 07-22-2022 Chronic Mycoses (1 source) Pain in toe; Translations: [Tinea unguium] 12-08-2023 Episodic Nephritis; nephrosis; renal sclerosis (20 sources) Membranous glomerulonephritis; 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] Onset: 0 03-15-2010 Chronic Noninfectious gastroenteritis (10 sources) Inflammatory bowel disease; Translations: [Noninfective gastroenteritis and colitis, unspecified] 05-11-2019 Episodic Nutritional deficiencies (20 sources) Vitamin D deficiency; Translations: [Vitamin D deficiency, unspecified] Onset: 0 05-03-2010 Chronic Osteoarthritis (20 sources) Degenerative joint disease of ankle AND/OR foot; Translations: [Primary osteoarthritis, unspecified ankle and foot] Onset: 4 Resolved: 1 07-31-2016 Chronic Other aftercare (17 sources) Drug therapy finding; Translations: [Other nursing home (current) drug therapy] Episodic Other aftercare (5 sources) Long-term current use of 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; Translations: [halfway (current) use of 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] Episodic Other aftercare (3 sources) halfway (current) use of anticoagulants; Translations: [JAIL CURRNT USE ANTICOAGULANTS] Onset: 2 Episodic Other aftercare (20 sources) Long-term current use of anticoagulant; 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] Onset: 3 06-10-2023 Episodic Other aftercare (6 sources) Surgical follow-up; Translations: [Encounter for follow-up examination after completed treatment for conditions other than malignant neoplasm] Onset: 5 04-03-2025 Episodic Other bone disease and musculoskeletal deformities (7 sources) Osteopenia; Translations: [Other specified disorders of bone density and structure, unspecified site] Episodic Other bone disease and musculoskeletal deformities (2 sources) Disorder of bone; Translations: [Disorder of bone, unspecified] 02-02-2025 Episodic Other bone disease and musculoskeletal deformities (1 source) Disorder of bone, unspecified; Translations: [Disorder of bone, unspecified] Onset: 5 Episodic Other circulatory disease (6 sources) Presence of other cardiac implants and grafts; Translations: [Other specified cardiac device in situ] Onset: 5 12-07-2024 Chronic Other circulatory disease (8 sources) Low blood pressure; Translations: [Hypotension, unspecified] 05-08-2019 Episodic Other connective tissue disease (20 sources) History of repair of hip joint; Translations: [Presence of right artificial hip joint] Onset: 1 12-19-2020 Chronic Other connective tissue disease (20 sources) History of total hip arthroplasty; Translations: [Presence of unspecified artificial hip joint] Onset: 1 12-20-2020 Chronic Other connective tissue disease (20 sources) Pain in left foot; Translations: [Pain in left foot] Onset: 5 Resolved: 5 08-07-2015 Episodic Other connective tissue disease (1 source) Tendinosis; Translations: [Other specified enthesopathies of unspecified lower limb, excluding foot] 03-17-2024 Episodic Other connective tissue disease (20 sources) Pain in right foot; Translations: [Pain in right foot] Onset: 5 12-19-2024 Episodic Other connective tissue disease (1 source) Arthrodesis status; Translations: [History of fusion of talotibial joint and subtalar joint] Onset: 5 Episodic Other connective tissue disease (1 source) Pain in right foot; Translations: [Pain in right foot] Onset: 5 Episodic Other connective tissue disease (1 source) Pain in left foot; Translations: [Pain in left foot] Onset: 5 Episodic Other endocrine disorders (20 sources) Hyperparathyroidism; Translations: [Hyperparathyroidism, unspecified] Onset: 2 Resolved: 5 Chronic Other endocrine disorders (1 source) Primary hyperparathyroidism; Translations: [Primary hyperparathyroidism] Chronic Other endocrine disorders (20 sources) Disorder of parathyroid gland; Translations: [Unspecified disorder of parathyroid gland] Onset: 3 06-10-2023 Chronic Other endocrine disorders (2 sources) Hyperparathyroidism, unspecified; Translations: [Hyperparathyroidism, unspecified] Onset: 2 Chronic Other gastrointestinal disorders (1 source) Bile acid malabsorption syndrome; 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] 09-30-2024 Chronic Other gastrointestinal disorders (20 sources) Diarrhea; Translations: [Diarrhea, unspecified] Episodic Other gastrointestinal disorders (5 sources) Diarrhea, unspecified; Translations: [DIARRHEA UNSPECIFIED] Onset: 2 Episodic Other hematologic conditions (8 sources) High troponin I level; Translations: [Other specified abnormalities of plasma proteins] 06-20-2019 Episodic Other hematologic conditions (8 sources) Raised cardiac enzyme or marker; Translations: [Other specified abnormalities of plasma proteins] 06-19-2019 Episodic Other inflammatory condition of skin (1 source) Intertrigo; Translations: [Erythema intertrigo] 12-29-2024 Episodic Other inflammatory condition of skin (1 source) Erythema intertrigo; Translations: [Erythema intertrigo] Onset: 5 Episodic Other lower respiratory disease (8 sources) Hypoxia; Translations: [Hypoxemia] 05-08-2019 Episodic Other lower respiratory disease (1 source) Solitary pulmonary nodule; Translations: [SOLITARY PULMONARY NODULE] Onset: 3 Episodic Other lower respiratory disease (1 source) Dyspnea on exertion; Translations: [Other forms of dyspnea] 10-11-2024 Episodic Other lower respiratory disease (1 source) Other forms of dyspnea; Translations: [Other forms of dyspnea] Onset: 5 Episodic Other nervous system disorders (20 sources) Plantar nerve lesion; Translations: [Lesion of plantar nerve, unspecified lower limb] Onset: 4 01-02-2014 Chronic Other nervous system disorders (8 sources) Metabolic encephalopathy; Translations: [Metabolic encephalopathy] 05-08-2019 Chronic Other nervous system disorders (7 sources) Disorder of brain; Translations: [Encephalopathy, unspecified] 02-09-2022 Chronic Other nervous system disorders (20 sources) Carpal tunnel syndrome; Translations: [Carpal tunnel syndrome, unspecified upper limb] Onset: 2 07-22-2022 Chronic Other nervous system disorders (2 sources) Impairment of balance; Translations: [Other abnormalities of gait and mobility] Episodic Other nervous system disorders (1 source) Postoperative pain ; Translations: [Other acute 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 pain] 01-04-2021 Episodic Other non-traumatic joint disorders (5 sources) Charcot's arthropathy; Translations: [Charcot's joint, unspecified site] 02-02-2025 Chronic Other non-traumatic joint disorders (1 source) Arthropathy associated with a neurological disorder; Translations: [Charcot's joint, unspecified site] 02-07-2025 Chronic Other non-traumatic joint disorders (2 sources) Charcot's joint, unspecified site; Translations: [Charcot arthropathy] Onset: 5 Chronic Other non-traumatic joint disorders (1 source) Hip pain; Translations: [Pain in right hip] 11-29-2020 Episodic Other non-traumatic joint disorders (1 source) Acute ankle pain; Translations: [Pain in right ankle and joints of right foot] 12-19-2024 Episodic Other non-traumatic joint disorders (1 source) Pain in right ankle and joints of right foot; Translations: [Pain in right ankle and joints of right foot] Onset: 5 Episodic Other nutritional; endocrine; and metabolic disorders (20 sources) Body mass index 40+ - severely obese; Translations: [Morbid (severe) obesity due to excess calories] Onset: 0 12-19-2020 Chronic Other nutritional; endocrine; and metabolic disorders (20 sources) Obese class II; Translations: [Obesity, unspecified] Onset: 2 09-13-2021 Chronic Other nutritional; endocrine; and metabolic disorders (20 sources) Morbid obesity; Translations: [Morbid (severe) obesity due to excess calories] Onset: 2 Resolved: 4 09-30-2019 Chronic Other nutritional; endocrine; and metabolic disorders (20 sources) Hyperbilirubinemia; Translations: [Other disorders of bilirubin metabolism] Onset: 4 09-19-2019 Chronic Other nutritional; endocrine; and metabolic disorders (7 sources) Obesity; Translations: [Obesity, unspecified] 02-08-2022 Chronic [...] nutritional; endocrine; and metabolic disorders (1 source) Morbid (severe) obesity due to excess calories; Translations: [Morbid (severe) obesity due to excess calories] Onset: 3 Chronic Other nutritional; endocrine; and metabolic disorders (2 sources) Body mass index (BMI) 39.0-39.9, adult; Translations: [Body mass index (BMI) 39.0-39.9, adult] Onset: 4 Chronic Other skin disorders (6 sources) Callosity; Translations: [Corns and callosities] Episodic Other upper respiratory disease (20 sources) Allergic rhinitis; Translations: [Allergic rhinitis, unspecified] Onset: 2 07-22-2022 Chronic Other upper respiratory disease (4 sources) Epistaxis; Translations: [Epistaxis] Onset: 4 Episodic Other upper respiratory disease (1 source) Nasal vestibulitis; Translations: [Other specified disorders of nose and nasal sinuses] 01-25-2025 Episodic Ovarian cyst (1 source) Unspecified ovarian cyst, right side; Translations: [UNSPECIFIED OVARIAN CYST RIGHT SIDE] Onset: 3 Episodic Pancreatic disorders (not diabetes) (18 sources) Pancreatitis; Translations: [Acute pancreatitis without necrosis or infection, unspecified] 09-18-2019 Episodic Darby-; endo-; and myocarditis; cardiomyopathy (except that caused by tuberculosis or sexually transmitted disease) (1 source) Hypertrophic obstructive cardiomyopathy; Translations: [Obstructive hypertrophic cardiomyopathy] Chronic Phlebitis; thrombophlebitis and thromboembolism (20 sources) Acute deep venous thrombosis of upper extremity; Translations: [Acute embolism and thrombosis of deep veins of left upper extremity] Onset: 4 05-19-2024 Episodic Pulmonary heart disease (20 sources) Pulmonary hypertension; Translations: [Pulmonary hypertension, unspecified] Onset: 5 12-22-2024 Chronic Regional enteritis and ulcerative colitis (20 sources) Ulcerative colitis; Translations: [Ulcerative colitis, unspecified, without complications] Onset: 9 06-19-2019 Chronic Residual codes; unclassified (20 sources) Sleep apnea; Translations: [Sleep apnea, unspecified] Onset: 2 12-19-2020 Chronic Residual codes; unclassified (20 sources) Obstructive sleep apnea syndrome; Translations: [Obstructive sleep apnea (adult) (pediatric)] Onset: 2 06-19-2019 Chronic Residual codes; unclassified (6 sources) Obstructive sleep apnea (adult) (pediatric); Translations: [Obstructive sleep apnea (adult)(pediatric)] Onset: 1 Chronic Residual codes; unclassified (8 sources) Obstructive sleep apnea of adult; Translations: [Obstructive sleep apnea (adult)(pediatric)] Chronic Residual codes; unclassified (8 sources) Altered mental status; Translations: [Altered mental status, unspecified] 02-07-2022 Episodic Residual codes; unclassified (3 sources) Altered mental status, unspecified; Translations: [Altered mental status] Episodic Residual codes; unclassified (3 sources) Postmenopausal state; Translations: [Asymptomatic menopausal state] Episodic Residual codes; unclassified (1 source) Other specified 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 states; Translations: [OTH SPECIFIED POSTPROCEDURAL STATES] Onset: 3 Episodic Residual codes; unclassified (4 sources) History of parathyroidectomy; Translations: [Other specified 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 states] 10-13-2023 Episodic Residual codes; unclassified (1 source) At risk of disease; Translations: [Other specified personal risk factors, not elsewhere classified] 11-16-2023 Episodic Residual codes; unclassified (1 source) Pain; Translations: [Pain, unspecified] 04-26-2020 Episodic Residual codes; unclassified (1 source) Edema of foot; Translations: [Localized edema] 12-19-2024 Episodic Residual codes; unclassified (1 source) Preoperative state 01-27-2025 Episodic Skin and subcutaneous tissue infections (1 source) Cellulitis of toe; Translations: [Cellulitis of right toe] Episodic Sprains and strains (3 sources) Sprain of right foot; Translations: [Unspecified sprain of right foot, initial encounter] Onset: 5 12-21-2024 Episodic Systemic lupus erythematosus and connective tissue disorders (20 sources) Systemic lupus erythematosus; Translations: [Systemic lupus erythematosus, unspecified] Onset: 1 12-19-2020 Chronic Thyroid disorders (20 sources) Hypothyroidism; Translations: [Hypothyroidism, unspecified] Onset: 1 12-19-2020 Chronic Unclassified (3 sources) Encntr for general adult medical exam w/o abnormal findings; Translations: [Encntr for general adult medical exam w/o abnormal findings] Onset: 9 Unclassified (3 sources) 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; Translations: [halfway (current) use of anticoagulants] Onset: 9 Unclassified (1 source) Other nursing home (current) drug therapy Onset: 9 Unclassified (2 sources) Thoracic aortic aneurysm, without rupture, unspecified; Translations: [Thoracic aortic aneurysm, without rupture, unspecified] Onset: 3 Unclassified (1 source) CONTACT W/AND (SUSP) EXPOS COVID-19; Translations: [CONTACT W/AND (SUSP) EXPOS COVID-19] Onset: 3 Unclassified (4 sources) Other persistent atrial fibrillation; Translations: [Other persistent atrial fibrillation (Multi)] Onset: 4 Unclassified (1 source) Foot Swelling Onset: 5 Unclassified (2 sources) Aneurysm of the ascending aorta, without rupture; Translations: [Aneurysm of the ascending aorta, without rupture] Onset: 2 Unclassified (1 source) MAW Onset: 4 Unclassified (2 sources) Closed fracture of left foot 01-23-2025 Unclassified (1 source) Thoracic aortic aneurysm, without rupture, unspecified (CMS-HCC); Translations: [Thoracic aortic aneurysm, without rupture, unspecified (CMS-HCC)] Onset: 3 Unclassified (1 source) Other ventricular tachycardia; Translations: [Other ventricular tachycardia] Onset: 4 Unclassified (1 source) Ascending aortic aneurysm, unspecified whether ruptured; Translations: [Ascending aortic aneurysm, unspecified whether ruptured] Onset: 2 Unclassified (1 source) Obesity, Class III, BMI 40-49.9 (morbid obesity) (HCC); Translations: [Obesity, Class III, BMI 40-49.9 (morbid obesity) (HCC)] Onset: 1 Unclassified (1 source) Established Patient Onset: 5 Unclassified (1 source) Obesity, Class III, BMI 40-49.9 (morbid obesity); Translations: [Obesity, Class III, BMI 40-49.9 (morbid obesity)] Onset: 1 Urinary tract infections (19 sources) Urinary tract infectious disease; Translations: [Urinary tract infection, site not specified] 09-29-2019 Episodic Past or Other Problems Problem Classification Problem Date Documented Da te Episodic/Chronic Biliary tract disease (20 sources) Biliary calculus; Translations: [Calculus of gallbladder without cholecystitis without obstruction] Onset: 03-30-2024 09-30-2019 Episodic Chronic obstructive pulmonary disease and bronchiectasis (20 sources) Mucopurulent chronic bronchitis; Translations: [Mucopurulent chronic bronchitis] Onset: 03-30-2024 Resolved: 03-30-2024 03-30-2024 Chronic Deficiency and other anemia (20 sources) Anemia; Translations: [Anemia, unspecified] Onset: 03-21-2024 03-30-2024 Episodic Fluid and electrolyte disorders (20 sources) Hypokalemia; Translations: [Hypokalemia] Onset: 03-30-2024 09-18-2019 Episodic Genitourinary symptoms and ill-defined conditions (20 sources) Proteinuria; Translations: [Proteinuria, unspecified] Onset: 02-22-2010 02-22-2010 Episodic Headache; including migraine (20 sources) Headache; Translations: [Headache] Onset: 03-30-2024 02-07-2022 Episodic Immunizations and screening for infectious disease (3 sources) Encounter for immunization; Translations: [Other specified vaccinations against streptococcus pneumoniae [pneumococcus]] Onset: 05-19-2024 Episodic Inflammation; infection of eye (except that caused by tuberculosis or sexually transmitteddisease) (20 sources) Conjunctivitis; Translations: [Unspecified conjunctivitis] Onset: 03-22-2019 03-22-2019 Episodic Mood disorders (20 sources) Mood disorders Onset: 03-30-2024 Resolved: 12-19-2024 03-30-2024 Neoplasms of unspecified nature or uncertain behavior (20 sources) Intraductal papillary mucinous neoplasm of pancreas; Translations: [Neoplasm of unspecified behavior of digestive system] Onset: 03-17-2020 07-22-2022 Episodic Nonspecific chest pain (20 sources) Chest wall pain; Translations: [Other chest pain] Onset: 03-30-2024 06-21-2019 Episodic Other aftercare (20 sources) Patient encounter status; Translations: [Other nursing home (current) drug therapy] Onset: 11-10-2012 11-10-2012 Episodic Other aftercare (20 sources) Taking high risk medication; Translations: [Other nursing home (current) drug therapy] Onset: 06-10-2023 Resolved: 12-07-2024 Episodic Other aftercare (3 sources) Other long chain beamer (current) drug therapy; Translations: [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] Onset: 09-30-2022 Episodic Other aftercare (20 sources) Long-term current use of drug therapy; Translations: [Other nursing home (current) drug therapy] Onset: 11-10-2012 11-10-2012 Episodic Other connective tissue disease (20 sources) Fibromyalgia; Translations: [Fibromyalgia] Onset: 03-10-2012 12-19-2020 Episodic Other connective tissue disease (20 sources) Enthesopathy of ankle AND/OR tarsus; Translations: [Other enthesopathy of unspecified foot and ankle] Onset: 01-02-2014 01-02-2014 Episodic Other connective tissue disease (20 sources) Neuropathy; Translations: [Neuralgia, neuritis, and radiculitis, unspecified] Onset: 01-02-2014 01-02-2014 Episodic Other connective tissue disease (20 sources) Synovitis/tenosynov itis - multiple joints; Translations: [Other synovitis and [...] [Tenosynovitis of foot and ankle] Onset: 08-07-2015 Resolved: 02-01-2025 07-31-2016 Episodic Other connective tissue disease (20 sources) Synovitis; Translations: [Synovitis and tenosynovitis, unspecified] Onset: 10-14-2017 Resolved: 04-02-2020 04-02-2020 Episodic Other connective tissue disease (20 sources) Tenosynovitis of foot and ankle; Translations: [Synovitis of right foot] Onset: 02-03-2017 02-03-2017 Episodic Other diseases of kidney and ureters (20 sources) Abnormal renal function; Translations: [Disorder of kidney and ureter, unspecified] Onset: 07-22-2022 07-22-2022 Episodic Other diseases of veins and lymphatics (2 sources) Varicose veins of other specified sites; Translations: [Varices of other sites] Onset: 03-30-2024 03-30-2024 Episodic Other eye disorders (20 sources) Disorder of cornea; Translations: [Unspecified disorder of cornea] Onset: 03-22-2019 03-22-2019 Episodic Other gastrointestinal disorders (1 source) Personal history of other diseases of the digestive system; Translations: [PERSONAL HX OTH DZ DIGESTIVE SYSTEM] Onset: 2022 Episodic Other lower respiratory disease (20 sources) Dyspnea; Translations: [Shortness of breath] Onset: 08-05-2024 04-03-2019 Episodic Other lower respiratory disease (2 sources) Shortness of breath; Translations: [Shortness of breath] Onset: 08-05-2024 Episodic Other lower respiratory disease (1 source) Cough Onset: 07-11-2024 Episodic Other non-traumatic joint disorders (5 sources) Pain in left knee; Translations: [Pain in joint, lower leg] Onset: 05-20-2024 03-15-2024 Episodic Other nutritional; endocrine; and metabolic disorders (6 sources) Body mass index 30+ - obesity; Translations: [Body mass index (BMI) 39.0-39.9, adult] Onset: 08-05-2024 Resolved: 12-07-2024 08-05-2024 Chronic Other screening for suspected conditions (not mental disorders or infectious disease) (1 source) Encounter for screening mammogram for malignant neoplasm of breast; Translations: [Encounter for screening mammogram for malignant neoplasm of breast] Onset: 03-30-2024 Episodic Other skin disorders (1 source) Finding of head and neck region; Translations: [Localized swelling, mass and lump, head] 03-30-2024 Episodic Other skin disorders (1 source) Localized swelling, mass and lump, head; Translations: [Localized swelling, mass and lump, head] Onset: 03-30-2024 Episodic Other upper respiratory disease (20 sources) Edema of larynx; Translations: [Edema of larynx] Onset: 06-10-2017 06-10-2017 Episodic Other upper respiratory disease (20 sources) Bleeding from nose; Translations: [Epistaxis] Onset: 03-21-2024 11-16-2023 Episodic Other upper respiratory disease (1 source) Pain in throat Onset: 07-11-2024 Episodic Other upper respiratory infections (4 sources) Viral upper respiratory tract infection; Translations: [Acute upper respiratory infection, unspecified] Onset: 07-11-2024 09-01-2023 Episodic Residual codes; unclassified (20 sources) Edema; Translations: [Edema, unspecified] Onset: 02-22-2010 02-22-2010 Episodic Residual codes; unclassified (19 sources) Never smoked any substance; Translations: [Other specified health status] Onset: 09-17-2023 09-17-2023 Episodic Residual codes; unclassified (2 sources) Other specified health status; Translations: [Other specified health status] Onset: 09-17-2023 Episodic Unclassified (8 sources) Never smoked tobacco; Translations: [Never a smoker] Unclassified (15 sources) Onset: 09-17-2023 Resolved: 05-16-2024 09-17-2023 Unclassified (1 source) Patient encounter status 08-15-2024 Unclassified (2 sources) Sprain of right foot 12-21-2024 Unclassified (1 source) Aneurysm of the ascending aorta, without rupture; Translations: [Aneurysm of the ascending aorta, without rupture] Onset: 12-07-2024 Unclassified (1 source) Thoracic aortic aneurysm, without rupture, unspecified (CMS-HCC); Translations: [Thoracic aortic aneurysm, without rupture, unspecified (CMS-HCC)] Onset: 08-05-2024 Unclassified (1 source) Other ventricular tachycardia; Translations: [Other ventricular tachycardia] Onset: 08-05-2024 Viral infection (20 sources) Herpes zoster; Translations: [Zoster without complications] Onset: 07-22-2022 07-22-2022 Episodic Results Test Name Value Interpretation Reference Range Facility [facility] 04-18-2025 CNOV Office Visit ([facility] ) JESUS WOLF ([id number]) 1955 F Date Time Provider Department 04/18/25 1:00 PM CAST [facility] During your visit today, we recorded the following information about you: Nicholas Arboleda MA 04/18/2025 1:33 PM Signed PT ASSESSMENT - CASTING ROOM Jesus presents for Application of cast. Applied short cast: to Right leg Patient has been instructed in Care of cast.. Nicholas Arboleda MA Allergies As of Date: 04/18/2025 Noted Allergy Reaction DOFETILIDE 03/15/2020 14 - [...] spot in area of shot Date Reviewed: 04/18/2025 Reviewed by: Petra Romo MA - Fully Assessed Primary Visit Diagnosis:Charcot arthropathy [M14.60] Prescriptions as of 04/18/2025 - apixaban (ELIQUIS) 5 mg tab(s) Take 1 tablet by mouth two times a day. Patient should start on April 05, 2025. - levothyroxine (SYNTHROID) 50 mcg tablet Take 50 mcg by mouth every morning. - metoprolol succinate ER (TOPROL XL) 200 mg 24 hr tablet Take 200 mg by mouth once daily. - furosemide (LASIX) 20 mg tablet Take 20 mg by mouth once daily. - docusate sodium (COLACE) 100 mg capsule Take 1 capsule by mouth two times a day. - alendronate (FOSAMAX) 70 mg tablet Take 1 tablet by mouth one time a week. In the morning with a full glass of water, on an empty stomach. Do not take anything else by mouth or lie down for the next 30 minutes. - mupirocin (BACTROBAN) 2 % ointment Apply to affected area three times a day. - Mesalamine (LIALDA) 1.2 gram EC tablet Take 4 tablets by mouth once daily. - hydrOXYchloroQUINE (PLAQUENIL) 200 mg tablet take 1 tablet by mouth twice a day with food - ferrous sulfate (IRON) 325 mg (65 mg iron) tablet Take 1 tablet by mouth once daily. - colestipol (COLESTID) 1 gram tablet TAKE 3 TABLETS BY MOUTH TWICE DAILY - pantoprazole DR (PROTONIX) 40 mg tablet Take 1 tablet by mouth twice daily - amiodarone (PACERONE) 200 mg tablet Take 300 mg by mouth once daily. Patient reports 300 mg by mouth daily - cjdgyfm-zyzzddyyr-pmte min D3 500 mg-5 mcg (200 unit) per tablet Take 1 tablet by mouth three times daily. - MV with Eli-Zeqyabnt-Fqufpa (CENTRUM SILVER) 0.4 mg-300 mcg- 250 mcg [...] 1 capsule by mouth once daily. - busPIRone (BUSPAR) 10 mg tablet Take 10 mg by mouth two times a day. - Cholecalciferol, Vitamin D3, 2,000 unit cap Take by mouth once daily. - vitamin b complex(B COMPLEX TAB) one daily - multivitamins w-minerals/lut(CENTRUM SILVER TAB) Take one(1) tablet daily. 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 Normal [facility] CNOV Office Visit (ORFWHP ) JESUS WOLF ([id number]) 1955 F Date Time Provider Department 04/18/25 10:30 AM FERCHO PRATHER ORFP During your visit today, we recorded the following information about you: Fercho Prather PA-C 04/18/2025 12:49 PM Signed POD #15 Surgery: Right subtalar joint fusion; Right talonavicular joint fusion; Multiple midfoot fusion (first and second tarsometatarsal joints, medial naviculocuneiform joint) on 04/03/2025 Dressings: post op splint and dressing removed. Incision: medial foot incision with slight dehiscence and serous fluid drainage. Mild erythema surrounding dorsal foot incision over 2nd TMT. Sutures: Kept sutures in place for additional wound healing. Drain: NA Pin sites: NA Right foot pain: history of neuropathy Calf assessment: soft, non-tender, no complaints of pain Concerns: none currently X-rays: none Plan: Place into short leg cast. NWB for a total of 10 weeks. Follow-up: 1-2 weeks for wound check. Fercho Prather PA-C Allergies As of Date: 04/18/2025 Noted Allergy Reaction DOFETILIDE 03/15/2020 14 - [...] spot in area of shot Date Reviewed: 04/18/2025 Reviewed by: Petra Romo MA - Fully Assessed Reason for Visit: Post Op [174] Primary Visit Diagnosis:Charcot arthropathy [M14.60] Order(s):XR FOOT GENERAL 3V AP/LAT/OBL RIGHT [[id number]] Order #: [id number] FUTURE CONSULT TO PHYSICAL THERAPY [8840] Order #: [id number]: 1 FUTURE Prescriptions as of 04/18/2025 - apixaban (ELIQUIS) 5 mg tab(s) Take 1 tablet by mouth two times a day. Patient should start on April 05, 2025. - levothyroxine (SYNTHROID) 50 mcg tablet Take 50 mcg by mouth every morning. - metoprolol succinate ER (TOPROL XL) 200 mg 24 hr tablet Take 200 mg by mouth once daily. - furosemide (LASIX) 20 mg tablet Take 20 mg by mouth once daily. - docusate sodium (COLACE) 100 mg capsule Take 1 capsule by mouth two times a day. - alendronate (FOSAMAX) 70 mg tablet Take 1 tablet by mouth one time a week. In the morning with a full glass of water, on an empty stomach. Do not take anything else by mouth or lie down for the next 30 minutes. - mupirocin (BACTROBAN) 2 % ointment Apply to affected area three times a day. - Mesalamine (LIALDA) 1.2 gram EC tablet Take 4 tablets by mouth once daily. - hydrOXYchloroQUINE (PLAQUENIL) 200 mg tablet take 1 tablet by mouth twice a day with food - ferrous sulfate (IRON) 325 mg (65 mg iron) tablet Take 1 tablet by mouth once daily. - colestipol (COLESTID) 1 gram tablet TAKE 3 TABLETS BY MOUTH TWICE DAILY - pantoprazole DR (PROTONIX) 40 mg tablet Take 1 tablet by mouth twice daily - amiodarone (PACERONE) 200 mg tablet Take 300 mg by mouth once daily. Patient reports 300 mg by mouth daily - cttyvhn-etruzxqkw-vueb min D3 500 mg-5 mcg (200 unit) per tablet Take 1 tablet by mouth three times daily. - MV with Uqu-Fgsvrwlw-Baqcil (CENTRUM SILVER) 0.4 mg-300 mcg- 250 mcg [...] 1 capsule by mouth once daily. - busPIRone (BUSPAR) 10 mg tablet Take 10 mg by mouth two times a day. - Cholecalciferol, Vitamin D3, 2,000 unit cap Take by mouth once daily. - vitamin b complex(B COMPLEX TAB) one daily - multivitamins w-minerals/lut(CENTRUM SILVER TAB) Take one(1) tablet daily. 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 [facility] Tele[facility] (ORAV[facility]) JESUS WOLF ([id number]) 1955 F Date Time Provider Department 04/18/25 AIDEN HALL During your visit today, we recorded the following information about you: Doreen Ashby RN 04/18/2025 1:42 PM Signed I left a message for Jesus just now to help schedule a one week wound check appointment with either JOSEPH Chiu at [place] on 04/[address] Hall at [place] on 04/24 (afternoon add-on). Fercho had one late afternoon slot left on 04/25. I will wait for her call. Doreen Ashby RN Allergies As of Date: 04/18/2025 Noted Allergy Reaction DOFETILIDE 03/15/2020 14 - [...] spot in area of shot Date Reviewed: 04/18/2025 Reviewed by: Petra Romo MA - Fully Assessed Prescriptions as of 04/18/2025 - apixaban (ELIQUIS) 5 mg tab(s) Take 1 tablet by mouth two times a day. Patient should start on April 05, 2025. - levothyroxine (SYNTHROID) 50 mcg tablet Take 50 mcg by mouth every morning. - metoprolol succinate ER (TOPROL XL) 200 mg 24 hr tablet Take 200 mg by mouth once daily. - furosemide (LASIX) 20 mg tablet Take 20 mg by mouth once daily. - docusate sodium (COLACE) 100 mg capsule Take 1 capsule by mouth two times a day. - alendronate (FOSAMAX) 70 mg tablet Take 1 tablet by mouth one time a week. In the morning with a full glass of water, on an empty stomach. Do not take anything else by mouth or lie down for the next 30 minutes. - mupirocin (BACTROBAN) 2 % ointment Apply to affected area three times a day. - Mesalamine (LIALDA) 1.2 gram EC tablet Take 4 tablets by mouth once daily. - hydrOXYchloroQUINE (PLAQUENIL) 200 mg tablet take 1 tablet by mouth twice a day with food - ferrous sulfate (IRON) 325 mg (65 mg iron) tablet Take 1 tablet by mouth once daily. - colestipol (COLESTID) 1 gram tablet TAKE 3 TABLETS BY MOUTH TWICE DAILY - pantoprazole DR (PROTONIX) 40 mg tablet Take 1 tablet by mouth twice daily - amiodarone (PACERONE) 200 mg tablet Take 300 mg by mouth once daily. Patient reports 300 mg by mouth daily - axktkfb-abwkzicsi-shbc min D3 500 mg-5 mcg (200 unit) per tablet Take 1 tablet by mouth three times daily. - MV with Ovg-Rdyfnoyv-Xgifoa (CENTRUM SILVER) 0.4 mg-300 mcg- 250 mcg [...] 1 capsule by mouth once daily. - busPIRone (BUSPAR) 10 mg tablet Take 10 mg by mouth two times a day. - Cholecalciferol, Vitamin D3, 2,000 unit cap Take by mouth once daily. - vitamin b complex(B COMPLEX TAB) one daily - multivitamins w-minerals/lut(CENTRUM SILVER TAB) Take one(1) tablet daily. Problem List As Of Date 04/18/2025 Noted Resolved Edema [R60.9] 02/22/2010 Proteinuria [R80.9] 02/22/2010 Primary hypertension [I10] 02/22/2010 Atrial fibrillation (HCC) [I48.91] [...] radiculitis, unspecifi*01/02/2014 Foot pain, left [M79.672] 08/07/2015 02/01/2025 Osteoarthrosis, localized, secondary, ankle or *08/07/2015 04/02/2020 Other synovitis and tenosynovitis, unspecified *08/07/2015 02/01/2025 Osteoarthrosis of ankle and foot, left [M19.072]02/03/2017 Synovitis of left foot [M65.972] 02/03/2017 Sy (more content not included)... Normal [facility] Basic metabolic 2000 panelon 04-04-2025 Anion gap [Moles/Vol] 9 mmol/L Normal 8-15 [facility] Comment on above: Order Comment: Speci men Type: BLOOD SPECIMEN Ordering Facility: [facility] Address: [address] [place] [address] Performed By: #### 2 4321-2 #### [facility] CLIA [id number] [address] [place] [address] [place] Calcium [Mass/Vol] 8.9 mg/dL Normal 8.5-10.2 [facility] Comment on above: Order Comment: Speci men Type: BLOOD SPECIMEN Ordering Facility: [facility] Address: [address] [place] [address] Performed By: #### 2 4321-2 #### [facility] CLIA [id number] [address] [place] [address] [place] Chloride [Moles/Vol] 107 mmol/L Normal 98-107 [facility] Comment on above: Order Comment: Speci men Type: BLOOD SPECIMEN Ordering Facility: [facility] Address: [address] [place] [address] Performed By: #### 2 4321-2 #### [facility] CLIA [id number] [address] [place], [place] [id number] [place] CO2 [Moles/Vol] 25 mmol/L Normal 22-30 [facility] Comment on above: Order Comment: Speci men Type: BLOOD SPECIMEN Ordering Facility: [facility] Address: [address] [place] [address] Performed By: #### 2 4321-2 #### [facility] CLIA [id number] [address] [place] [address] [place] Creatinine [Mass/Vol] 0.95 mg/dL Normal 0.58-0.96 [facility] Comment on above: Order Comment: Morena barragan Type: BLOOD SPECIMEN Ordering Facility: [facility] Address: [address] [place] [address] Performed By: #### 2 4321-2 #### [facility] CLIA [id number] [address] [place] [address] [place] eGFRcr SerPlBld CKD-EPI 2020 65 mL/min/1.73m??? Normal >=60 [facility] Comment on above: Order Comment: Morena barragan Type: BLOOD SPECIMEN Ordering Facility: [facility] Address: [address] [place] [address] Result Comment: Anna mated Glomerular Filtration Rate [...] reflect actual GFR. Performed By: #### 2 4321-2 #### [facility] CLIA [id number] [address] [place] [address] [place] Glucose [Mass/Vol] 125 mg/dL High 74-99 [facility] Comment on above: Order Comment: Morena barragan Type: BLOOD SPECIMEN Ordering Facility: [facility] Address: [address] [place] [address] Result Comment: The [place] [employer] (ADA) provides guidance for cutoff [...] Standards of Medical Care in Diabetes 2016, [place] [employer]. Diabetes Care. 2016.39(Suppl 1). Performed By: #### 2 4321-2 #### [facility] CLIA [id number] [address] [place] [address] [place] Potassium [Moles/Vol] 5.1 mmol/L Normal 3.7-5.1 [facility] Comment on above: Order Comment: Speci men Type: BLOOD SPECIMEN Ordering Facility: [facility] Address: [address] [place] [address] Performed By: #### 2 4321-2 #### [facility] CLIA [id number] [address] [place] [address] [place] Sodium [Moles/Vol] 141 mmol/L Normal 136-144 [facility] Comment on above: Order Comment: Speci men Type: BLOOD SPECIMEN Ordering Facility: [facility] Address: [address] [place] [address] Performed By: #### 2 4321-2 #### [facility] CLIA [id number] [address] [place] [address] [place] Urea nitrogen [Mass/Vol] 21 mg/dL Normal 7-21 [facility] Comment on above: Order Comment: Speci men Type: BLOOD SPECIMEN Ordering Facility: [facility] Address: [address] [place] [address] Performed By: #### 2 4321-2 #### [facility] CLIA [id number] [address] [place] [address] [place] CBC panel Auto (Bld)on 04-04 Erythrocyte distribution width (RBC) [Ratio] 13.4 % Normal 11.5-15.0 [facility] Comment on above: Order Comment: Speci men Type: BLOOD SPECIMEN Ordering Facility: [facility] Address: [address] [place] [address] Performed By: #### 5 8410-2 #### [facility] CLIA [id number] [address] [place] [address] [place] Hematocrit (Bld) [Volume fraction] 37.8 % Normal 36.0-46.0 [facility] Comment on above: Order Comment: Speci men Type: BLOOD SPECIMEN Ordering Facility: [facility] Address: [address] [place] [address] Performed By: #### 5 8410-2 #### [facility] CLIA [id number] [address] [place] [address] [place] Hemoglobin (Bld) [Mass/Vol] 12.5 g/dL Normal 11.5-15.5 [facility] Comment on above: Order Comment: Speci men Type: BLOOD SPECIMEN Ordering Facility: [facility] Address: [address] [place] [address] Performed By: #### 5 8410-2 #### [facility] [place] [id number] [address] [place] [address] [place] MCH (RBC) [Entitic mass] 33.0 pg Normal 26.0-34.0 [facility] Comment on above: Order Comment: Speci men Type: BLOOD SPECIMEN Ordering Facility: [facility] Address: [address] [place] [address] Performed By: #### 5 8410-2 #### [facility] [place] [id number] [address] [place] [address] [place] MCHC (RBC) [Mass/Vol] 33.1 g/dL Normal 30.5-36.0 [facility] Comment on above: Order Comment: Speci men Type: BLOOD SPECIMEN Ordering Facility: [facility] Address: [address] [place] [address] Performed By: #### 5 8410-2 #### [facility] CLIA [id number] [address] [place] [address] [place] MCV (RBC) [Entitic vol] 99.7 fL Normal 80.0-100.0 L [facility] Comment on above: Order Comment: Speci men Type: BLOOD SPECIMEN Ordering Facility: [facility] Address: [address] [place] [address] Performed By: #### 5 8410-2 #### [facility] CLIA [id number] [address] [place] [address] [place] Nucleated RBC (Bld) [#/Vol] 0.02 10*3/uL High <0.01 [facility] Comment on above: Order Comment: Speci men Type: BLOOD SPECIMEN Ordering Facility: [facility] Address: [address] [place] [address] Performed By: #### 5 8410-2 #### [facility] CLIA [id number] [address] [place] [address] [place] Platelet mean volume (Bld) [Entitic vol] 10.4 fL Normal 9.0-12.7 [facility] Comment on above: Order Comment: Speci men Type: BLOOD SPECIMEN Ordering Facility: [facility] Address: [address] [place] [address] Performed By: #### 5 8410-2 #### [facility] CLIA [id number] [address] [place] [address] [place] Platelets (Bld) [#/Vol] 167 10*3/uL Normal 150-400 [facility] Comment on above: Order Comment: Speci men Type: BLOOD SPECIMEN Ordering Facility: [facility] Address: [address] [place] [address] Performed By: #### 5 8410-2 #### [facility] CLIA [id number] [address] [place] [address] [place] RBC (Bld) [#/Vol] 3.79 10*6/uL Low 3.90-5.20 [facility] Comment on above: Order Comment: Speci men Type: BLOOD SPECIMEN Ordering Facility: [facility] Address: [address] [place] [address] Performed By: #### 5 8410-2 #### [facility] CLIA [id number] [address] [place], [place] [address] [place] WBC (Bld) [#/Vol] 14.25 10*3/uL High 3.70-11.00 [facility] Comment on above: Order Comment: Speci men Type: BLOOD SPECIMEN Ordering Facility: [facility] Address: [address] [place] [address] Performed By: #### 5 8410-2 #### [facility] [id number] [address] [place] THERAPY NTon 04-04-2025 THERAPY NT HNO ID: [id number] Author: SRAVANI VARGAS, PT, DPT Service: Physical Therapy Author Type: Physical Therapist Type: Therapy (PT/OT/Speech/Resp) Filed: 04/04/2025 13:24 Note Text: Physical Therapy Evaluation Summary SERVICE DATE: 04/04/2025 SERVICE TIME: 1220 to 1239 ROOM: [place] [address] PT 6 Clicks Score: 18 Total Joint Replacement Discharge Readiness: Not Applicable DISCHARGE RECOMMENDATIONS Home Recommended Discharge Disposition Comments: Pt had prehab session [facility] [employer]. Pt and family feel comfortable returning home. Declined need for mobility assessment. States that she has been transferring to[facility]from [facility] with walker while inhouse. Plans on transferring only at home. Pt with all necessary equipment. Addressed pt and family questions/concerns from PT standpoint. Edcuated on post op precautions and proper positioning/alignment when elevating. Anticipated Discharge Needs: Physical Assist at Home Physical Assist at Home for: Transportation, Self Care, Safety, Shopping, Laundry, Cleaning Recommended Discharge Equipment: No equipment needs anticipated ASSESSMENT Response to Therapy Interventions: Good Participation in Activities PRECAUTIONS Weight Bearing Restrictions Right Lower Extremity Weight Bearing Status: NWB CURRENT HOSPITAL COURSE 70 y.o female admitted 04/03/25 s/p R subtalar joint fusion, R talonavicular fusion, multiple midfoot fusions Relevant Past Medical History: SLE, fibromyalgia, obesity, DVT, Afib HOME LIVING Patient Lives With: Spouse Assistance Available: 24-Hour Entry To Home: Ramp Number Of Stairs To Bed/Bath: 0 Tub/Shower Type: tub/shower combo; with shower bench Laundry: spouse can complete Equipment Owned: Elevated Toilet Seat, Grab Bars- Shower, Scooter- Power, Walker- Wheeled, Commode- 3 in 1, Wheelchair- Manual, Rehab Spec PRIOR FUNCTIONAL LEVEL Within Functional Limits Per pt, she was independent with ADLs. Shares IADLs. Has been utilizing W/C for mobility SUBJECTIVE Pt motivated for D/C home today. and daughter bedside. THERAPY DIAGNOSIS Reduced mobility-other, Difficulty walking-musculoskeleta l, Unsteadiness on feet TREATMENT INTERVENTIONS Evaluation Skilled Treatment Time (minutes): 19 TRAINING AND EDUCATION PROVIDED Advanced Balance Activities, Anatomy and Impact on Deficits, Home Safety, Falls Prevention, Equipment, Energy Conservation, Discharge Planning, Car Transfers, Precautions/Restrictio ns, Positioning, Modalities, Transfers THERAPEUTIC SKILLS USED Teach-Back for Education, Family Training FUNCTIONAL STATUS Bed Mobility Rolling: Modified Independent Supine To Sit: Additional Information pt declined Transfers Bed to Chair Gait Stairs GOALS Patient will demonstrate understanding of importance of mobility during hospital stay and resolve all functional needs identified., Patient will demonstrate progress with functional mobility to allow safe discharge to home with available support and/or physical assistance. Rehab Potential: Good Good Rehab Potential Due To: Good overall health status, Good support system/ coping skills, Good motivation Progress Toward Goals: Progressing as expected ACUTE CARE TREATMENT PLAN PT Frequency: 4 Times Per Week Treatment Interventions: Education, Self Care / Home Management, Energy Conservation Training, Functional Mobility Training, Balance Training, Strengthening, Modalities Plan for Next Visit: Sit to Stand Transfers, Gait Training SIGNATURE: Sravani Vargas, PT, DPT PATIENT NAME: Jesus Wolf DATE: April 04, 2025 TIME: 1:23 PM [facility] THERAPY NT HNO ID: [id number] Author: PARDEEP LEON OTR/Vinicio Service: Occupational Therapy Author Type: Occupational Therapist Type: Therapy (PT/OT/Speech/Resp) Filed: 04/04/2025 13:10 Note Text: OCCUPATIONAL THERAPY MISSED VISIT SERVICE DATE: 04/04/2025 SERVICE TIME: 1308 ROOM: [place] [address] Patient not seen due to Clinical Appropriateness. Per PT, pt declined OT d/t know needs and has all necessary equipment for home. D/C OT services. SIGNATURE: JODY Arcos/Vinicio PATIENT NAME: Jesus Moncadarett DATE: April 04, 2025 TIME: 1:09 PM [facility] ANES POSTPROC EVALon 025 ANES POSTPROC EVAL HNO ID: [id number] Author: SURENDRA MONTEMAYOR MD Service: Anesthesiology Author Type: Anesthesiologist Type: Anesthesia Postprocedure Evaluation Filed: 04/03/2025 13:27 Note Text: POST ANESTHESIA EVALUATION NOTE : 1955 Procedure Summary Date: 04/03/25 Room / Location: [place] [address] / OR Anesthesia Start: 916 Anesthesia Stop: 1304 Procedures: ARTHRODESIS MIDTARSAL MULTIPLE/TRANSVERSE (Right: Foot) ARTHRODESIS FOOT (Right: Foot) ARTHRODESIS SUBTALAR (Right: Foot) FLUOROSCOPY UP TO 1 HOUR PHYSCIAN OR OTHER QUAL PROF TIME,SEPARATE PROCEDURE (Right: Foot) Diagnosis: Arthritis, neuropathic Bone disease (Arthritis, neuropathic [M14.60]) (Bone disease [M89.9]) Surgeons: Aiden Hall MD Responsible Provider: Surendra Montemayor MD Anesthesia Type: general ASA Status: 3 Anesthesia Type: general Airway Type: ETT Last Vitals Vitals Value Taken Time BP 136/80 04/03/25 13:15 Temp 36.5 ?C (97.7 ?F) 04/03/25 13:05 Pulse 75 04/03/25 13:27 Resp 16 04/03/25 13:05 SpO2 95% 04/03/25 13:27 Vitals shown include unfiled device data. Post Anesthesia Patient Status Patient Evaluation: bedside. [...] of care. Anesthesia Observations No Documentation SIGNATURE: Surendra Montemayor MD PATIENT NAME: Jesus Wolf DATE: April 03, 2025 TIME: 1:27 PM CSN: [id number] [facility] ANES PRE-OPon 04-03-2025 ANES PRE-OP HNO ID: [id number] Author: SURENDRA MONTEMAYOR MD Service: Anesthesiology Author Type: Anesthesiologist Type: Anesthesia Preprocedure Evaluation Filed: 04/03/2025 08:48 Note Text: ANESTHESIOLOGY DAY OF SURGERY NOTE : 1955 Procedure Information Date/Time: 04/03/25 0855 Procedures: ARTHRODESIS MIDTARSAL MULTIPLE/TRANSVERSE (Right: Foot) ARTHRODESIS FOOT (Right: Foot) ARTHRODESIS SUBTALAR (Right: Foot) LENGTHENING CORD HEEL (Right: Foot) FLUOROSCOPY UP TO 1 HOUR PHYSCIAN OR OTHER QUAL PROF TIME,SEPARATE PROCEDURE (Right: Foot) Location: OR / OR Surgeons: Aiden Hall MD Estimated body mass index is 41.43 kg/m? as calculated from the following: Height as of 03/20/25: 170.2 cm (5' 7 ). Weight as of 03/20/25: 120 kg (264 lb 8.8 oz). Most recent hematocrit and potassium results: Hematocrit 46.3 11/16/2024 Potassium 4.5 11/16/2024 Relevant Problems ANESTHESIA (+) Sleep apnea CARDIO (+) Atrial fibrillation (HCC) (+) Chronic congestive heart failure (HCC) (+) Essential hypertension (+) Pulmonary hypertension (HCC) (+) Thoracic ascending aortic aneurysm ENDO (+) Hypothyroidism -RENAL (+) Membranous glomerulonephritis (+) Stage 3 chronic kidney disease (HCC) NEURO-PSYCH (+) History of DVT (deep vein thrombosis) PULMONARY (+) Sleep apnea Other (+) Osteoarthritis of ankle and foot (+) Osteoarthrosis of ankle and foot, left (+) Primary osteoarthritis of both feet (+) Synovitis of foot (+) Synovitis of left foot (+) Synovitis of right foot I - PHYSICAL EVALUATION AIRWAY Patient intubated: No. Tracheostomy tube not present Mallampati: III. TM distance: >3 FB. Neck ROM: full ROM without neurological symptoms. Mouth opening: adequate. Short neck: yes. Thick neck: yes Microretrognathia/Micr onagthia/Recessed Chin: No DENTAL Dental findings: teeth intact. Additional exam findings: yes. CARDIOVASCULAR Normal cardiovascular observations. Rhythm: regular Rate: normal PULMONARY Normal pulmonary observations. Breath sounds clear to auscultation. II - ANESTHESIA PLAN ASA Score: 3 Anesthetic Plan: general Airway type: ETT The patient is not a current smoker. NPO Status: adequate Beta Girish Administration of chronic beta girish medication planned. Monitoring Plan Monitoring plan: standard ASA. Post Procedure Analgesic Plan Postoperative analgesic plan: parenteral or oral opioids, peripheral nerve block and per surgical service. Informed Consent Anesthetic risks, benefits, alternatives, personnel and consent discussed: yes. Patient / Responsible Green Party agrees to proceed: yes Patient / Surrogate agrees to blood products: blood products not planned Significant changes in the patient condition since the History and Physical, not otherwise documented in primary service progress note: no. Potential Anesthesia issues that may suggest increased risk of complications or contraindication to planned procedure: none. Vitals Value Taken Time BP 153/92 04/03/25 07:08 Pulse 78 04/03/25 07:08 Resp 16 04/03/25 07:08 Temp 36.5 ?C (97.7 ?F) 04/03/25 07:08 SpO2 97 % 04/03/25 07:08 Facility-Administered Medications as of 04/03/2025 Medication Dose Route Frequency - lidocaine (PF) 10 mg/mL (1 %) 1-2 mg injection (XYLOCAINE) 0.1-0.2 mL INTRADERMAL PRN - lactated ringers iv infusion 5-30 mL/hr INTRAVENOUS CONTINUOUS - NaCl 0.9% iv flush bag 20 mL INTRAVENOUS PRN - ceFAZolin 3 g in D5W 100 mL (ANCEF) 3 g INTRAVENOUS Pre-Op Once Outpatient Medications as of 04/03/2025 Medication Sig - mupirocin (BACTROBAN) 2 % ointment Apply to affected area three times a day. - Mesalamine (LIALDA) 1.2 gram EC tablet Take 4 tablets by mouth once daily. - hydrOXYchloroQUINE (PLAQUENIL) 200 mg tablet take 1 tablet by mouth twice a day with food - ferrous sulfate (IRON) 325 mg (65 mg iron) tablet Take 1 tablet by mouth once daily. - colestipol (COLESTID) 1 gram tablet TAKE 3 TABLETS BY MOUTH TWICE DAILY - pantoprazole DR (PROTONIX) 40 mg tablet Take 1 tablet by mouth twice daily - amiodarone (PACERONE) 200 mg tablet Take 300 mg by mouth once daily. Patient reports 300 mg by mouth daily - metoprolol succinate ER (TOPROL XL) 50 mg 24 hr tablet TAKE 1 TABLET BY MOUTH IN THE MORNING AND 2 TABLETS BY MOUTH IN THE EVENING - ELIQUIS 5 mg tab(s) Take 5 mg by mouth twice daily. - acetaminophen (TYLENOL) 500 mg tablet Take 1 tablet by mouth every 4 hours as needed for pain. - gwfegfc-nucygdlwh-blzi min D3 500 mg-5 mcg (200 unit) per tablet Take 1 tablet by mouth three times daily. - MV with Wbf-Auhtgabw-Oazjdf (CENTRUM SILVER) 0.4 mg-300 mcg- 250 mcg tab Take 1 tablet by mouth once daily. - atorvastatin (LIPITOR) 40 mg tablet Take 1 tablet by mouth once daily. - Bifidobacterium infantis (ALIGN ORAL) Take by mouth once daily. - belimumab (BENLYSTA INTRAVENOUS) Inject intravenously. Patient reports she receives infusion every 3 months (more content not included)... [facility] CONSULTon 04-03-2025 CONSULT HNO ID: [id number] Author: ESPINOZA ROME MD Service: General Internal Medicine Author Type: Physician Type: Consults Filed: 04/03/2025 17:38 Note Text: MEDICINE INITIAL CONSULT NOTE SERVICE DATE: 04/03/2025 SERVICE TIME: 5:34 PM REASON FOR CONSULT: Postop medical care REQUESTING PHYSICIAN: Isabel PRIMARY CARE PHYSICIAN: Wojciech Treviño MD, DO Subjective Ms. Wolf is a 70 year old female who presents for right foot surgery. I was asked to see the pt for post op medical care. Pt seen and chart reviewed. At this time, the patient has no new medical concerns. Her history is notable for hypertension, hyperlipidemia, paroxysmal atrial fibrillation and chronic congestive heart failure. Currently she denies shortness of breath. There is no chest pain or palpitations. PAST MEDICAL HISTORY Diagnosis Date Atrial fibrillation (HCC) on coumadin Herniated intervertebral disk HTN (hypertension) Hyperlipemia Kidney disease MONI (obstructive sleep apnea) no longer using CPAP since 60 lb weight loss Other acute pancreatitis with uninfected necrosis (HCC) SLE (systemic lupus erythematosus) (HCC) PAST SURGICAL HISTORY Procedure Laterality Date APPENDECTOMY CARPAL TUNNEL RIGHT WRIST surgical correction COLONOSCOPY 05/10/2019 [facility] COLONOSCOPY GEN ANES 07/23/2020 Dr. Frances/Diverticulosis/H emorrhoids/ Ulcerative Colitis/Rpt in 2 yrs. COLONOSCOPY SCREENING 03/2023 EGD EUS 01/11/2020 [facility] LASIK Right prior to 1999 MRI PANC/JEANIE WO/W IVCON 12/20/2019 OVARIAN CYSTECTOMY PAST SURGICAL HISTORY OF 07/2013 bilateral foot procedure, [place] PAST SURGICAL HISTORY OF Ablation X2 TONSILLECTOMY HX FAMILY HISTORY Problem Relation Age of Onset Alzheimer's Disease Father Hypertension Father Cataract Mother Hypertension Mother Colon Cancer Mother Cataract Sister Hypertension Sister Colon Cancer Paternal Uncle SOCIAL HISTORY[1] Prescriptions Prior to Admission[2] Current Facility-Administered Medications Medication Dose Route Frequency [START ON 04/04/2025] aspirin 81 mg chewable tab(s) 81 mg ORAL BID docusate 100 mg oral liquid (COLACE) 100 mg ORAL BID NaCl 0.9% iv flush bag 20 mL INTRAVENOUS PRN lactated ringers iv infusion 75 mL/hr INTRAVENOUS CONTINUOUS acetaminophen 1,000 mg tab(s) (TYLENOL) 1,000 mg ORAL q 8 H ondansetron 4 mg tab(s) (ZOFRAN) 4 mg ORAL q 6 H PRN Or ondansetron (PF) 4 mg injection (ZOFRAN) 4 mg INTRAVENOUS q 6 H PRN melatonin 1 mg tab(s) 1 mg ORAL DAILY (8 PM) [START ON 04/05/2025] apixaban 5 mg tab(s) (ELIQUIS) 5 mg ORAL BID Allergies As of Date: 02/07/2025 Allergen Noted Reaction DOFETILIDE 03/15/2020 Other: See Comments and Anaphylaxis IODINATED CONTRAST MEDIA 08/28/2010 Other: See Comments SULFA (SULFONAMIDE ANTIBIOTICS) 02/21/2010 Vomiting CONTRAST DYE 08/28/2010 Other: See Comments IODINE 02/04/2023 Other: See Comments CODEINE 02/21/2010 Other: See Comments COMPAZINE [PROCHLORPERAZINE EDISY*02/21/2010 Other: See Comments TETNUS [TETANUS VACCINES AND TOXO*02/21/2010 Other: See Comments Fully Assessed 02/01/2025 COMPLETE REVIEW OF SYSTEMS: GENERAL: Denies recent illness RESPIRATORY: No shortness of breath CARDIOVASCULAR: Denies chest pain or palpitations. GI: No nausea, vomiting, or diarrhea : No dysuria Objective PHYSICAL EXAM: Physical Exam Performed: GENERAL: Alert, no distress, cooperative HEAD/SINUSES: No significant findings OROPHARYNX: Mucous membranes moist LUNGS: Clear CARDIAC: Rhythm: regular rate and rhythm ABDOMEN: Soft, nontender BP 99/81 Pulse 77 Temp (Src) 97.5 (Oral) Resp 16 Ht 5' 6 (1.68m) Wt 262 lb (118.8kg) SpO2 98% LMP 07/17/2011 BMI 42.31 kg/(m2). O2 Therapy: Room Air, Liters (Numeric Only): 6 DATA: Diagnostic tests reviewed for today's visit: No new labs Impression/Recommendat ions Principal Problem: Patient is a 70-year-old female. Status post right foot surgery. She is medically stable this time. Medical conditions include: Hypertension. BP remains stable. Will continue to monitor. Hyperlipidemia. Resume medications upon discharge. Paroxysmal atrial fibrillation. Plan to continue Eliquis. Will follow. Thanks. Medication and Non-Pharmacologic VTE Prophylaxis/Anticoagul ants Anticoagulant AND Antiplatelet Medications (From admission, onward) Start Dose Route Frequency Last Action Ordered Stop 04/05/25 0900 apixaban 5 mg tab(s) (ELIQUIS) (apixaban tab(s) (ELIQUIS)) 5 mg PO 2 TIMES DAILY Ordered 04/03/25 1524 -- 04/04/25 0900 aspirin 81 mg chewable tab(s) 81 mg PO 2 TIMES DAILY Ordered 04/03/25 1433 04/05/25 0859 04/03/25 1530 vte current anticoag therapy ([place] 04/03/25 1530 pneumatic compression sleeve(s) (wv,[place]) 04/03/25 1530 activity - mobilize patient ([place]) VTE Prophylaxis: VTE prophylaxis appropriate SIGNATURE: Espinoza Rome MD PATIENT NAME: Jesus Wolf DATE: (more content not included)... [facility] OPERATIVE NOon 04-03-2025 OPERATIVE NO HNO ID: [id number] Author: AIDEN HALL MD Service: Orthopaedic Surgery Author Type: Physician Type: Operative Report Filed: 04/03/2025 19:51 Note Text: OPERATIVE NOTE NAME: Jesus Wolf SURGERY DATE: 04/03/2025 PRE-OPERATIVE DIAGNOSIS: Right foot Charcot arthropathy Right midfoot DJD, severe Right hindfoot DJD, severe Right navicular fracture with subsequent resorption, NC and TN joint DJD, severe History of lupus with neuropathy POST-OPERATIVE DIAGNOSIS: Same as preoperative diagnosis PROCEDURES: Right subtalar joint fusion - 72513 Right talonavicular joint fusion - 37541 Multiple midfoot fusion (first and second tarsometatarsal joints, medial naviculocuneiform joint) - 59792 Intra-operative use of fluoroscopy - 17321 SURGEONS: Aiden Hall MD BELTING CUTTER: Sravani Callejas MD (PGY-1) STAFF: Reaming Press Operator: Nga Jiménez RN Physician Analyst Competitive Intelligence: Shoaib Coyle PA-C; Percy Dent PA-C Scrub Person: Jose Mcrae ST ANESTHESIA: General See anesthesia report for details. ESTIMATED BLOOD LOSS: 50cc DRAINS: None TOTAL IV FLUIDS: See anesthesia report for details SPECIMENS: * No order type specified * IMPLANTS: Implant Name Type Inv. Item Serial No. Military Technology Specialist Lot No. LRB No. Used Action GRAFT BN AUGMENT INJ 3.0CC - [id number] Graft GRAFT BN AUGMENT INJ 3.0CC [facility] [id number] Right 1 Implanted [employer] 5CC - [id number] Bone [employer] 5CC Docker [id number] Right 1 Implanted EASYFUSE STAPLE 25X20 NITINOL 2-LEG Staple Vigilix [id number] Right 1 Implanted PIN ORTHOLOC 1.4MM LARGE FIXATION TEMPORARY DISPOSABLE - [id number] Pin PIN ORTHOLOC 1.4MM LARGE FIXATION TEMPORARY DISPOSABLE [facility] Right 1 Non-Implant TACK CLAW II ORTHOLOC 3DI ORTHOPEDIC PLATE FOOT ANKLE DISPOSABLE - [id number] Pin TACK CLAW II ORTHOLOC 3DI ORTHOPEDIC PLATE FOOT ANKLE DISPOSABLE [facility] Right 2 Non-Implant PIN ORTHOLOC 3DI 1.4MM SMALL FIXATION TEMPORARY DISPOSABLE - [id number] Pin PIN ORTHOLOC 3DI 1.4MM SMALL FIXATION TEMPORARY DISPOSABLE [facility] Right 1 Non-Implant SCREW ORTHOLOC 3.5MM FULL THREAD PURPLE 16MM BONE 3DI TECHNOLOGY SELF - [id number] Screw SCREW ORTHOLOC 3.5MM FULL THREAD PURPLE 16MM BONE 3DI TECHNOLOGY SELF [employer] Right 1 Implanted SCREW ORTHOLOC 3DI 3.5MM FULL THREAD LOW PROFILE PURPLE 18MM BONE LOCK OVER - [id number] Screw SCREW ORTHOLOC 3DI 3.5MM FULL THREAD LOW PROFILE PURPLE 18MM BONE LOCK OVER [employer] Right 1 Implanted SCREW ORTHOLOC 3.5MM FULL THREAD PURPLE 20MM BONE 3DI TECHNOLOGY LOCK - [id number] Screw SCREW ORTHOLOC 3.5MM FULL THREAD PURPLE 20MM BONE 3DI TECHNOLOGY LOCK [facility] Right 1 Implanted SCREW ORTHOLOC 3.5MM FULL THREAD PURPLE 22MM BONE 3DI TECHNOLOGY POLYAXIAL - [id number] Screw SCREW ORTHOLOC 3.5MM FULL THREAD PURPLE 22MM BONE 3DI TECHNOLOGY POLYAXIAL [facility] Right 1 Implanted MEDIAL COLUMN FUSION PLATE LG ORTHOLOC 3DI PLATING - [id number] Plate MEDIAL COLUMN FUSION PLATE LG ORTHOLOC 3DI PLATING [facility] Right 1 Implanted SCREW ORTHOLOC 3.5MM FULL THREAD PURPLE 24MM BONE 3DI TECHNOLOGY SELF - [id number] Screw SCREW ORTHOLOC 3.5MM FULL THREAD PURPLE 24MM BONE 3DI TECHNOLOGY SELF [facility] Right 1 Implanted SCREW BONE 8MM 85MM ASNIS III TITANIUM FULLY THREADED CANNULATED SELF - [id number] Screw SCREW BONE 8MM 85MM ASNIS III TITANIUM FULLY THREADED CANNULATED SELF [employer] Right 1 Implanted ORTHOLOC 3DI SCREW ABDULKADIR 3.5X26MM Screw [facility] Right 1 Implanted SCREW ANS3 25 THRD TI 8.0X 80 Screw YAJAIRA Right 1 Implanted 8.0 X 75MM TI CANNULATED SCREW - [id number] Screw 8.0 X 75MM TI CANNULATED SCREW YAJAIRA 1 Wasted BIT 2.5MM DRILL - [id number] Bit BIT 2.5MM DRILL [facility] 1 BIT ORTHOLOC 2.8MM 60MM DRILL 3DI TECHNOLOGY - [id number] Bit BIT ORTHOLOC 2.8MM 60MM DRILL 3DI TECHNOLOGY [facility] 1 SCREW ORTHOLOC 3DI 3.5MM BRONZE 38MM BONE LOW PROFILE SELF TAPPING THREADED - [id number] Screw SCREW ORTHOLOC 3DI 3.5MM BRONZE 38MM BONE LOW PROFILE SELF TAPPING THREADED [facility] Right 1 Implanted SCREW ORTHOLOC 3.5MM FULL THREAD LOW PROFILE BRONZE 40MM BONE 3DI - [id number] Screw SCREW ORTHOLOC 3.5MM FULL THREAD LOW PROFILE BRONZE 40MM BONE 3DI [facility] Right 1 Implanted COMPLICATIONS: None DISPOSITION: Stable to PACU INDICATION FOR SURGERY: Patient has Right foot Charcot arthropathy that has failed conservative management that requires operative intervention to attenuate the risk of continued pain, malunion, continued deformity, and gait dysfunction. The patient has been explained risks and benefits of surgery versus conservative management and has elected for operative intervention. Specifically, we discussed the risk of nonunion, malunion, need for revision surgery, persistent pain, infection, neurovascular injury, blood loss, anesthetic complications, and even . OPERA (more content not included)... [facility] XR FOOT 2V AP/LAT RTon 04-03 XR FOOT 2V AP/LAT RT * * *Final Report* * * DATE OF EXAM: Apr 03 2025 1:42PM ARIES 5609 - XR FOOT 2V AP/LAT RT / PROCEDURE REASON: Arthritis * * * * Physician Interpretation * * * * EXAMINATION: XR FOOT 2V AP/LAT RT CLINICAL INFORMATION: 70 years old Female with Arthritis COMPARISON: CT 02/01/2025 Fluoroscopic Radiation Summary: Plane A, Air Kerma: No Dose reported Dose Area Product (DAP): Fluoro time: 2:16 min:sec RESULT: 2 fluoroscopic intraoperative images of the RIGHT foot demonstrate interval arthrodesis of multiple joints with a plate and screw construct in the medial foot extending from the talus to the proximal 1st metatarsal and subtalar arthrodesis with 2 screws. IMPRESSION: Intraoperative examination for surgical planning and documentation. Trans Router: MILLER Transcribe Date/Time: Apr 04 2025 8:35A Dictated by : SOPHIE WILSON DO This examination was interpreted and the report reviewed and electronically signed by: SOPHIE WILSON DO on Apr 04 2025 8:40AM EST [id number] [facility] 03-20-2025 CNPN Telephone (RHEUMN) JESUS WOLF ([id number]) 1955 F Date Time Provider Department 03/20/25 NADEGE MURPHY During your visit today, we recorded the following information about you: Yesy Grace, RN 03/20/2025 9:53 AM Signed Pt is identified by name and birthdate: Yes Patient calls wanting to know if she can still have Infusion? 03/23/2025 Rheu Infusion BENLYSTA M32.9 MEDICARE A/B DR LANEY ALICEA STAFFING, X 8 weeks 04/03/2025 - ORTHO PROCEDURE Surgeon Role Service Isabel, Aiden, MD Primary Orthopedics Procedure: ARTHRODESIS MIDTARSAL MULTIPLE/TRANSVERSE Laterality Anesthesia Op Region Right General Foot Procedure: ARTHRODESIS FOOT Laterality Anesthesia Op Region Right General Foot Procedure: ARTHRODESIS SUBTALAR Laterality Anesthesia Op Region Right General Foot Procedure: LENGTHENING CORD HEEL Laterality Anesthesia Op Region Right General Foot Procedure: FLUOROSCOPY UP TO 1 HOUR PHYSCIAN OR OTHER QUAL PROF TIME,SEPARATE PROCEDURE Laterality Anesthesia Op Region Right General Foot Yesy Grace RN 03/20/2025 3:02 PM Signed Please do not send messages back to this triage nurse. Please route to your appropriate assigned pool for [facility]. Allergies As of Date: 03/20/2025 Noted Allergy Reaction DOFETILIDE 03/15/2020 14 - [...] spot in area of shot Date Reviewed: 03/20/2025 Reviewed by: Beverly Glass APRN.RESPIRATORY CLINICIAN - Fully Assessed Reason for Visit: Procedure [88] Infusion [464] Prescriptions as of 03/20/2025 - alendronate (FOSAMAX) 70 mg tablet Take 1 tablet by mouth one time a week. In the morning with a full glass of water, on an empty stomach. Do not take anything else by mouth or lie down for the next 30 minutes. - mupirocin (BACTROBAN) 2 % ointment Apply to affected area three times a day. - Mesalamine (LIALDA) 1.2 gram EC tablet Take 4 tablets by mouth once daily. - hydrOXYchloroQUINE (PLAQUENIL) 200 mg tablet take 1 tablet by mouth twice a day with food - ferrous sulfate (IRON) 325 mg (65 mg iron) tablet Take 1 tablet by mouth once daily. - colestipol (COLESTID) 1 gram tablet TAKE 3 TABLETS BY MOUTH TWICE DAILY - pantoprazole DR (PROTONIX) 40 mg tablet Take 1 tablet by mouth twice daily - amiodarone (PACERONE) 200 mg tablet Take 300 mg by mouth once daily. Patient reports 300 mg by mouth daily - metoprolol succinate ER (TOPROL XL) 50 mg 24 hr tablet TAKE 1 TABLET BY MOUTH IN THE MORNING AND 2 TABLETS BY MOUTH IN THE EVENING - ELIQUIS 5 mg tab(s) Take 5 mg by mouth twice daily. - acetaminophen (TYLENOL) 500 mg tablet Take 1 tablet by mouth every 4 hours as needed for pain. - kdhkzip-fzrzhlbeg-astc min D3 500 mg-5 mcg (200 unit) per tablet Take 1 tablet by mouth three times daily. - MV with Ihb-Utvnavyu-Tlyhcg (CENTRUM SILVER) 0.4 mg-300 mcg- 250 mcg [...] mg tablet Take 10 mg by mouth two times a day. - Cholecalciferol, Vitamin D3, 2,000 unit cap Take by mouth once daily. - vitamin b complex(B COMPLEX TAB) one daily - multivitamins w-minerals/lut(CENTRUM SILVER TAB) Take one(1) tablet daily. Problem List As Of Date 03/20/2025 Noted Resolved Edema [R60.9] 02/22/2010 Proteinuria [R80.9] 02/22/2010 Essential hypertension [I10] 02/22/2010 Atrial fibrillation (HCC) [I48.91] 02/22/2010 Membranous Glomerulonephritis [N05.2] 03/15/2010 Vitamin D Deficiency [E55.9] 05/03/2010 SLE (systemic lupus erythematosus) (HCC) [M32.9]07/16/2011 Fibromy (more content not included)... Normal [facility] HISTORY PHYSICALon HISTORY PHYSICAL HNO ID: [id number] Author: BEVERLY GLASS APRN.RESPIRATORY CLINICIAN Service: ? Author Type: Nurse Practitioner Type: H&P Filed: 03/20/2025 09:41 Note Text: HISTORY AND PHYSICAL EXAMINATION SERVICE DATE: 03/20/2025 SERVICE TIME: 9:05 AM PRIMARY CARE PHYSICIAN: Wojciech Treviño MD, DO REASON FOR VISIT: Jesus Wolf is a 70 year old female who is scheduled for Right - ARTHRODESIS MIDTARSAL MULTIPLE/TRANSVERSE Right - ARTHRODESIS FOOT Right - ARTHRODESIS SUBTALAR Right - LENGTHENING CORD HEEL Right - FLUOROSCOPY UP TO 1 HOUR PHYSCIAN OR OTHER QUAL PROF TIME,SEPARATE PROCEDURE at the request of Dr. Aiden Hall for consultation. My final recommendation will be communicated back to the requesting physician by way of shared medical record or letter. Assessment Essential hypertension Assessment: stable and compliant with current medications Last 5 Encounter BP Readings: Date: BP: 03/20/2025 108/73 01/26/2025 103/69 12/22/2024 118/70 12/01/2024 141/78 11/16/2024 136/64 Mixed hyperlipidemia Assessment: stable with current medication regimen Atrial fibrillation (HCC) Assessment: stable,asymptomatic, RRR today Follows with cardiology, Dr. Conway, Last Office Visit: 12/07/24: Paroxysmal atrial fibrillation, status post radiofrequency ablation with pulmonary vein isolation at [facility] that was done 3 times started in 2019 and ended in 2023 with recurrences while on amiodarone therapy. Currently anticoagulated with Eliquis and she is also status post watchman's device March 2024. 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 Pulmonary hypertension (HCC) Assessment: stable, asymptomatic RVSP 50-55mmHg on PHYLLIS 09/19/24 Thoracic ascending aortic aneurysm (HCC) Assessment: stable, follows regularly with imaging PHYLLIS 09/19/24 shows: Mild aortic root dilatation. The aortic root is 4.4 cm Chronic congestive heart failure (HCC) Assessment: Appears euvolemic and well compensated today. EF 55-60% on PHYLLIS 09/19/24 Follows with cardiology, per Abisai Barraza () on 01/27/25: According to ACC/AHA guidelines, a patient with recent favorable cardiovascular testing without change in symptoms may proceed to operating room without additional ischemic evaluation. Patient with functional capacity right at 4 METS with only minor clinical markers proceeding with intermediate risk surgery-no need for ischemic evaluation. Plan: At this time, no prohibitive cardiovascular risk to proceed with much-needed surgical procedure. She may interrupt DOAC 48 hours prior to procedure, resume once hemostasis obtained. Abisai Barraza MSN, [employer] HISTORY PROFESSOR-RESPIRATORY CLINICIAN, PMHNP-BC (Our [facility] office later clarified that patient may hold eliquis for 72 hours - TE 03/03/25) Sleep apnea Assessment: cannot tolerate CPAP Stage 3 chronic kidney disease (HCC) Assessment: Stable, asymptomatic BUN Date Value Ref Range Status 11/16/2024 15 7 - 21 mg/dL Final 08/11/2024 24 (H) 7 - 21 mg/dL Final 06/13/2024 20 7 - 21 mg/dL Final Creatinine Date Value Ref Range Status 11/16/2024 1.04 (H) 0.58 - 0.96 mg/dL Final 08/11/2024 1.03 (H) 0.58 - 0.96 mg/dL Final 06/13/2024 1.04 (H) 0.58 - 0.96 mg/dL Final Hypothyroidism Assessment: stable with current medication regimen Hyperparathyroid (HCC) Assessment: Calcium, Total Date Value Ref Range Status 11/16/2024 9.6 8.5 - 10.2 mg/dL Final Anemia Assessment: Stable. Denies bleeding. Hemoglobin (g/dL) Date Value 11/16/2024 15.0 05/20/2024 13.8 12/28/2023 13.8 05/16/2021 14.0 03/25/2021 15.0 12/21/2020 9.6 SLE (systemic lupus erythematosus) (HCC) Assessment: in remission on meds, follows with rheumatology Obesity, Class III, BMI >= 40 Assessment: Body mass index is 41.43 kg/m?. History of DVT (deep vein thrombosis) Assessment: currently anticoagulated with eliquis, managed by cardiology ANESTHESIA FINDINGS: Intubation History: No history of difficult intubation Significant Anesthesia Considerations: none Airway History: No history of difficult airway Robert Activity Status Index: METS: DASI Score: 0 (Limited to wheelchair because of right foot) Patient confirms chest pain or undue shortness of breath with the above physical activity. Patient is limited most or all of the time (uses scooter, mobility device). STOP-Bang Score: Has or is being treated for high blood pressure BMI greater than 35 kg/m2 Patient over 50 years old Denies snoring loudly Denies feeling tired, fatigued, or sleepy during the daytime Has not been observed to stop breathing or choking/gasping during sleep Does not have a large neck Non-male patient STOP-Bang Score: 3 (MONI does not use CPAP) [id number] Score: Age: 65-74 Sex: female CHF history: Yes Hypertension history: Yes Stroke/TIA/thromboembo lism history: No Vascular disease history: No Diabetes history: No [id number] Score: 4 ARISCAT Score: Age: 51-80 Preoperative SpO2: >=96% Preoperative ane (more content not included)... Normal [facility] CNOVon 03-10-2025 CNOV Office Visit (CYNTHIAORRM ) JESUS WOLF ([id number]) 1955 F Date Time Provider Department 03/10/25 9:30 AM MARY MORALES During your visit today, we recorded the following information about you: Mary Morales MD 03/10/2025 9:49 AM Signed This document has been created with the use of voice recognition technology, including AI Scribe technology. It may contain inaccuracies: misspellings, inaccurate syntax or word sense that escaped review. CHIEF COMPLAINT: Jesus Wolf is a 70 year old female who presents today for follow up of left knee. HISTORY OF PRESENT ILLNESS: PAIN EVALUATION 03/03/2025 1044 Pain Level: 8 Pain Location: Knee-Left Description: Stabbing Duration Units: Months Frequency: Continuous Intervention/Comfort measure: Medication;Reposition; Relaxation;Positioning HISTORY: Jesus Wolf is a 70-year-old female presenting with recurrent left knee pain. Jesus reports a recurrence of left knee pain, similar to previous episodes, with pain localized to the anterior and medial aspects of the knee. The pain had subsided for approximately 2.5 months but has recently intensified, particularly with ambulation. She denies any new injuries to the knee. She is scheduled for foot surgery on April 03 and anticipates increased reliance on her left knee during the postoperative period, which will involve 10 weeks of non-weight bearing on the affected foot. She denies any pain radiating to the hip and confirms a history of right hip replacement. She denies a history of diabetes mellitus. ROS: REVIEW OF SYSTEMS: Constitutional: patient denies any recent fever or significant change in weight Cardiovascular: patient denies any chest pain at rest Respiratory: patient denies any shortness of breath or cough Gastrointestinal: patient denies any current abdominal discomfort Integumentary: patient denies any recent skin changes Musculoskeletal: as noted in the HPI Neurologic: as noted in the HPI Endocrine: patient denies a current diagnosis of diabetes Hematologic/Lymphatic: patient denies any easily bleeding, any recent infection and denies any recent observable lymph node enlargement Psychologic: negative for any recent depression or anxiety issues SOCIAL HISTORY: Tobacco Use: Never FAMILY HISTORY: FAMILY HISTORY Problem Relation Age of Onset Alzheimer's Disease Father Hypertension Father Cataract Mother Hypertension Mother Colon Cancer Mother Cataract Sister Hypertension Sister Colon Cancer Paternal Uncle Musculoskeletal: (+) left knee pain, (-) hip pain ALLERGIES: ALLERGIES Allergen Reactions Dofetilide Other: See [...] spot in area of shot PAST MEDICAL HISTORY: PAST MEDICAL HISTORY Diagnosis Date Atrial fibrillation (HCC) on coumadin Herniated intervertebral disk HTN (hypertension) Hyperlipemia Kidney disease MONI (obstructive sleep apnea) no longer using CPAP since 60 lb weight loss Other acute pancreatitis with uninfected necrosis (HCC) SLE (systemic lupus erythematosus) (HCC) SOCIAL HISTORY: Tobacco Use: Never EXAMINATION: GENERAL: obese, in wheel chair with boot on right foot, chronic venous stasis disease ORIENTATION: Alert and oriented to person place and time HABITUS: BMI 41 GAIT: Wheelchair bound left knee exam no effusion Partially correctable varus Alignment Active lacks a few degrees extension, flexion 115. central patellar tracking/ positive patellofemoral crepitation positive Pain with patellar compression, positive Pain with palpating medial compartment, no Pain with palpating lateral compartment. stable to varus and valgus stresses. Kelin is negative stable Anterior/posterior drawer. negative McMurrays No pain with palpation of pes anserine bursa Calf soft and nontender. Hip exam- negative log roll, preserved ER/IR, no pain with axial loading NV intact L3-S1 with 2+ DP pulse. IMPRESSION: Encounter Diagnosis ICD-10-CM 1. Primary osteoarthritis of left knee M17.12 Large Joint Arthro/Inj: L knee joint 03/10/2025 9:48 AM The procedure site was prepped in the usual sterile fashion. Site: L knee joint Medications: 40 mg triamcinolone acetonide 40 mg/mL Anesthetics: 4 mL lidocaine (PF) 10 mg/mL (1 %) Outcome: Tolerated well, no immediate complications (more content not included)... Normal [facility] Large Joint Arthro/Inj: L kn ee jointon 03-10-2025 Mary Morales MD 03/10/2025 9:49 AM Large Joint Arthro/Inj: L knee joint 03/10/2025 9:48 AM The procedure site was prepped in the usual sterile fashion. Site: L knee joint Medications: 40 mg triamcinolone acetonide 40 mg/mL Anesthetics: 4 mL lidocaine (PF) 10 mg/mL (1 %) Outcome: Tolerated well, no immediate complications Post-injection instructions were reviewed with the patient and the patient voiced understanding of these instructions. Informed Consent Consent Obtained: Written [place] Protocol A moment to CARE was completed. SIGN IN Personnel directly involved with the procedure wore the appropriate PPE. Special Equipment: N/A Patient/Surrogate Stated/Verified: Patient name, Date of , Relevant allergies and Intended procedure TIME OUT Relevant labs, photos, and/or imaging studies have been reviewed. Intended patient and procedure match source documents. Consent obtained and matches the intended procedure. Correct side/site marked and visible. Medications required for procedure verified. No fire risk assessment and interventions applicable. No implant(s) inserted. SIGN OUT No specimen collected. All instruments, equipment, possible retained foreign bodies accounted for. The post-procedure POC has been communicated to the patient or surrogate. No post-procedure POC communication to the patient's multidisciplinary team (including the bedside nurse for hospitalized patients) applicable. [facility] 02-21-2025 GILMA Telephone (TOMMY) JESUS WOLF ([id number]) 1955 F Date Time Provider Department 02/21/25 ARNOL MUNSON During your visit today, we recorded the following information about you: Arnol Munson RN 02/21/2025 1:48 PM Signed Adolfo, Patient is scheduled for PROCEDURE : ARTHRODESIS MIDTARSAL MULTIPLE/TRANSVERSE - Right Cardiology documented ok for 48 hour hold of Eliquis prior to procedure. Please advise if patient needs 3 day hold of Eliquis for this procedure and if I might reach back out to cardiology for longer hold or surgeon for shorter hold? Thank you, Danika Munson RN PACC Resource Nurse Arnol Munson RN 02/24/2025 3:06 PM Signed Elissa Harden APRN.RESPIRATORY CLINICIAN You6 hours ago (8:16 AM) [facility] Should be fine to hold the 3 days prior. Arnol Munson RN 02/24/2025 3:06 PM Signed Sabine Red documented in 01/27/25 CE- encounter for 48 hour hold. (See below) Is the 48 hr hold OK or do we need 3 day hold for this type of procedure? ARTHRODESIS MIDTARSAL MULTIPLE/TRANSVERSE - Right Anesthesia: general Plan: At this time, no prohibitive cardiovascular risk to proceed with much-needed surgical procedure. She may interrupt DOAC 48 hours prior to procedure, resume once hemostasis obtained. Abisai Barraza MSN, AFRICAN HISTORY PROFESSOR-RESPIRATORY CLINICIAN, PMHNP-[facility] [place], [place] Arnol Munson RN 02/27/2025 2:17 PM Signed Elissa Harden APRN.CNP You3 days ago CH They do list a block under the surgical req, I would hold the 3 days per our guidelines. Thank you Arnol Munson RN 02/27/2025 2:17 PM Signed Faxed letter to Abisai Barraza requesting 3 day hold of Eliquis. Danika Munson RN PACC Resource Nurse Arnol Munson RN 03/02/2025 3:14 PM Signed Refaxed letter to Jinny Barraza APRN RESPIRATORY CLINICIAN. Danika Munson RN PACC Resource Nurse Doreen Barraza LPN 03/03/2025 1:45 PM Signed Abisai Barraza [employer] called stating ok to Stop Eliquis 3 days prior to procedure. Message received by Leelee MATA on 03-03-25 @ 1:25. Stated they will send a fax with written instructions. Arnol Munson RN 03/13/2025 10:06 AM Signed Spoke with Jesus and reviewed PACC questionnaire and completed. Instructions for DOAC reviewed. Jesus had no questions. Danika Munson RN PACC Resource Nurse Allergies As of Date: 02/21/2025 Noted Allergy Reaction DOFETILIDE 03/15/2020 14 - [...] spot in area of shot Date Reviewed: 02/01/2025 Reviewed by: Rickie Kam MA - Fully Assessed Reason for Visit: Preparations For Surgery [898] Cmt: Eliquis instructions Prescriptions as of 03/13/2025 - alendronate (FOSAMAX) 70 mg tablet Take 1 tablet by mouth one time a week. In the morning with a full glass of water, on an empty stomach. Do not take anything else by mouth or lie down for the next 30 minutes. - mupirocin (BACTROBAN) 2 % ointment Apply to affected area three times a day. - Mesalamine (LIALDA) 1.2 gram EC tablet Take 4 tablets by mouth once daily. - hydrOXYchloroQUINE (PLAQUENIL) 200 mg tablet take 1 tablet by mouth twice a day with food - ferrous sulfate (IRON) 325 mg (65 mg iron) tablet Take 1 tablet by mouth once daily. - colestipol (COLESTID) 1 gram tablet TAKE 3 TABLETS BY MOUTH TWICE DAILY - pantoprazole DR (PROTONIX) 40 mg tablet Take 1 tablet by mouth twice daily - amiodarone (PACERONE) 200 mg tablet Take 300 mg by mouth once daily. Patient reports 300 mg by mouth daily - metoprolol succinate ER (TOPROL XL) 50 mg 24 hr tablet TAKE 1 TABLET BY MOUTH IN THE MORNING AND 2 TABLETS BY MOUTH IN THE EVENING - ELIQUIS 5 mg tab(s) Take 5 mg by mouth twice daily. - acetaminophen (TYLENOL) 500 mg tablet Take 1 tablet by mouth every 4 hours as needed for pain. - jlyrmgp-ldtcasftg-etrv min D3 500 mg-5 mcg (200 unit) per tablet Take 1 tablet by mouth three times daily. - MV with Xha-Lspiudvj-Shkcnd (CENTRUM SILVER) 0.4 mg-300 mcg- 250 mcg tab Take 1 tablet by mouth once daily. - sucralfate (CARAFATE) 100 mg/m (more content not included)... Normal [facility] 25(OH)D3 SerPl-ncon 2024 25-hydroxyvitamin D3 [Mass/Vol] 50.7 ng/mL Normal 31.0-80.0 [facility] Comment on above: Order Comment: Speci men Type: BLOOD SPECIMENOrdering Facility: [facility] Address: [address] [place] [address] Result Comment: Clas sification of 25 [place] Vitamin D status: Deficiency/Insufficiency: < or = 30 ng/ml. Sufficiency/Optimal Levels: 31-80 ng/mL Toxicity: > 100 ng/mL. Test performed by chemiluminescent immunoassay. Performed By: #### 1 [id number] ####[facility] LABCLIA [id number] [place] [address] [place] Sarita 02-03-2025 CNPN Telephone ([facility]) JESUS WOLF ([id number]) 1955 F Date Time Provider Department 02/03/25 AIDEN HALL During your visit today, we recorded the following information about you: Micki Valadez 02/03/2025 2:45 PM Signed ----- Message from Aiden Hall MD sent at 02/02/2025 5:21 PM EDT ----- Procedure: Right extended medial column fusion (first TMT joint, NC joint, talonavicular joint fusions), ORIF navicular, subtalar joint fusion, second TMT joint fusion, third TMT joint fusion, NNAMDI versus gastrocnemius recession Location: [facility] - plan to admit post-op Date of Surgery: per patient C-arm (large or mini): mini Post-op Schedule: 2 and 6 weeks CASE REQUEST--- Anesthesia: general, pre-op LE block Prep: alcohol prep, betadine scrub and paint; extremity drape; bump under ipsilateral hip; small sterile bump Position: supine Tourniquet: thigh tourniquet Instruments: mini C-arm, Yajaira joint prep kit, lara-legenbeck retractors, large power, small Hintermann, Nava bone graft harvester Implants: Yajaira WMT/Spivey EasyFuse jerry, Yajaira small frag solid/cannulated screws Time needed: 3 hours CPT: 95863, 79890, 38512, 92330, 85441 [id number] Micki Valadez 02/03/2025 2:46 PM Signed Journey Lineman called patient and LVTCB regarding surgery with . Advised patient to call back at [phone] to discuss surgery date and following appts. Micki Valadez 02/07/2025 1:17 PM Signed Journey [facility]eman spoke to patient regarding surgery with Dr. Hall on 05/01 . Advised patient to check mychart for all follow up appts and PACC appt. Micki Valadez 02/16/2025 2:04 PM Signed Rescheduled pt to 04/03, per patient. Pacc and postop appts have been rescheduled to reflect new DOS. Allergies As of Date: 02/03/2025 Noted Allergy Reaction DOFETILIDE 03/15/2020 14 - [...] spot in area of shot Date Reviewed: 02/01/2025 Reviewed by: Rickie Kam MA - Fully Assessed Reason for Visit: Surgical Follow Up [176] Prescriptions as of 02/16/2025 - mupirocin (BACTROBAN) 2 % ointment Apply to affected area three times a day. - alendronate (FOSAMAX) 70 mg tablet Take 1 tablet by mouth one time a week. In the morning with a full glass of water, on an empty stomach. Do not take anything else by mouth or lie down for the next 30 minutes. - Mesalamine (LIALDA) 1.2 gram EC tablet Take 4 tablets by mouth once daily. - hydrOXYchloroQUINE (PLAQUENIL) 200 mg tablet take 1 tablet by mouth twice a day with food - ferrous sulfate (IRON) 325 mg (65 mg iron) tablet Take 1 tablet by mouth once daily. - colestipol (COLESTID) 1 gram tablet TAKE 3 TABLETS BY MOUTH TWICE DAILY - pantoprazole DR (PROTONIX) 40 mg tablet Take 1 tablet by mouth twice daily - amiodarone (PACERONE) 200 mg tablet Take 300 mg by mouth once daily. Patient reports 300 mg by mouth daily - metoprolol succinate ER (TOPROL XL) 50 mg 24 hr tablet TAKE 1 TABLET BY MOUTH IN THE MORNING AND 2 TABLETS BY MOUTH IN THE EVENING - ELIQUIS 5 mg tab(s) Take 5 mg by mouth twice daily. - acetaminophen (TYLENOL) 500 mg tablet Take 1 tablet by mouth every 4 hours as needed for pain. - ubxdruz-ncuqjbrph-uryo min D3 500 mg-5 mcg (200 unit) per tablet Take 1 tablet by mouth three times daily. - MV with Qqc-Oshureuz-Hoigqi (CENTRUM SILVER) 0.4 mg-300 mcg- 250 mcg [...] mg tablet Take 10 mg by mouth two times a day. - Cholecalciferol, Vitamin D3, (more content not included)... Normal [facility] [id number] 02-01-2025 [id number] HNO ID: [id number] Author: ALVA DARNELL PT Service: ? Author Type: Physical Therapist Type: [id number] Filed: 02/01/2025 16:21 Note Text: [facility] Physical Therapy Plan of Care Certification Patient Name: Jesus Wolf : 1955 [facility] #: [id number] Date: 02/01/2025 To: Aiden Hall MD From Therapist: Alva German PT RE: Patient Certification/ Recertification Your review, approval and electronic signature are required in order to comply with Payor: MEDICARE / Plan: MEDICARE A AND B / Product Type: Medicare / regulations. The identified Physical Therapy PLAN OF CARE for the patient is as follows: M79.672 Pain in left foot (primary encounter diagnosis) S92.902A Closed fracture of left foot, initial encounter M79.671 Pain in right foot PLAN OF CARE: Assessment: Jesus Wolf presents with diagnosis of pre-op rt foot surgery that interferes with rising from a chair, standing, walking, walking in the house, walking in the community, stair negotiation, heavy exertion, physical activities, recreational activities, working, driving, cleaning, cooking, dressing . The patient presents with impairments in ADL's, balance, gait, joint mobility, overall function, and strength. PROMIS? (Patient-Reported Outcomes Measurement Information System) scores were reviewed and identified as a rehabilitation concern. Prognosis for therapy is Fair due to: clinical presentation . Pt plans to utilize electric scooter. Discussed adaptions needed for home and potential barriers. Pt plans to f/u closer to home following surgery. The patient will benefit from skilled therapy services to meet the goals established for this plan of care as noted below. Anticipated ability to follow post-op precautions: With caregiver assistance in their current home environment Goals for Episode of Care: established 02/01/25 vocalize understanding of protocol-met Planned Interventions, Frequency, and Duration: Current Frequency: 1 visit Duration: 1 visit Total Number of Visits Planned: 1 Planned Treatment Interventions: Therapeutic exercise (47686), Neuromuscular re-education (79816), Therapeutic activities (28037), Self-skilled nursing management (96058), Gait Training (21841) PLAN FOR NEXT VISIT: pt will f/u closer to home Patient demonstrates good understanding of plan of care and treatment. The above goals and plan of care were discussed and agreed upon by patient/family. For further details regarding this patient refer to the Physical Therapy electronically documented visit dated 02/01/2025. Provider Attestation I have reviewed the treatment plan for Jesus Wolf, [facility]# [id number] for the period of 02/01/25 -- 02/01/25, established on 02/01/2025. Signature certifies the need for therapy services. Normal [facility] CNOVon 02-01-2025 CNOV Office Visit (ORAVON ) JEUSS WOLF ([id number]) 1955 F Date Time Provider Department 02/01/25 2:00 PM AIDEN HALL During your visit today, we recorded the following information about you: Aiden Hall MD 02/02/2025 5:27 PM Signed [facility] - Follow-Up Visit Note CHIEF COMPLAINT: Right foot Charcot arthropathy Right midfoot DJD, severe Right hindfoot DJD, severe Right navicular fracture with subsequent resorption, NC and TN joint DJD, severe History of lupus with neuropathy INTERVAL HISTORY: Jesus Wolf is a 69 year old female who returns today for evaluation and discussion of surgical management of her Right foot charcot arthropathy PHYSICAL EXAM: Well appearing female in no acute distress; Alert and oriented. Right Lower Extremity: No swelling, erythema, warmth Moderate tenderness in midfoot Gross deformity present IMAGING: CT Right foot was independently evaluated and reveals Right navicular fracture with dislocation, midfoot DJD severe with talar plantarflexion noted ASSESSMENT: Right foot Charcot arthropathy Right midfoot DJD, severe Right hindfoot DJD, severe Right navicular fracture with subsequent resorption, NC and TN joint DJD, severe History of lupus with neuropathy PLAN: We will plan to proceed with surgical management. Surgery plan: Right extended medial column fusion (first TMT joint, NC joint, talonavicular joint fusions), ORIF navicular, subtalar joint fusion, second TMT joint fusion, third TMT joint fusion, NNAMDI versus gastrocnemius recession -Continue DJO boot to R LE until surgery -DVT prophylaxis w/ Eliquis postop (chronic anticoagulation for Afib) -Schedule surgery at [facility], will plan to stay overnight -NWB 8-10 weeks post op We discussed the surgery in detail, including the expected recovery, outcomes, risks and benefits. They will be Non-weight bearing for 10 weeks after surgery. They understand it will take them 5-6 months to fully recover from the surgery. The risks and benefits of surgery were discussed today, including, but not limited to: bleeding ,infection, damage to blood vessels and nerves, nerve pain, wound healing problems, nonunion, malunion, hardware failure, blood clots, and incomplete relief of symptoms. The patient understood, and agreed to go ahead. My office will begin scheduling surgery. Post-op pain medications per protocol. We discussed DVT Prophylaxis, and they will use ASA 81 mg BID. We discussed vitamin D supplementation as needed. Pre-operative antibiotics will be Ancef. ARETHA Modifiable Risk Factors (MoRF) Diabetes normal High: A1C > 8 Moderate: A1C 7-8 Normal: A1C < 7 Smoking normal High: Current smoker Normal: Non smoker Narcotics Use normal High:NarxCare >=300 Moderate: 100-299 Normal: 0-99 POST-OP PLAN: WB: NWB for 10 weeks. First 2 weeks NWB in post-op splint Pain control: Multimodal DVT ppx: home Eliquis to re-start POD2 Follow-up: 2 weeks post-op for wound check and suture removal. Place into short leg cast. Next follow-up: 6 weeks with X-rays foot (3 views, WB). Remove cast and replace into tall boot. Remain NWB until 10 weeks post-op. Next follow-up: 12 weeks with X-rays foot (3 views, WB) PT: start 10 weeks post-op for guided progressive WB protocol Thank you for the opportunity to participate in this patient's care. Aiden Hall MD Medical Decision Making Allergies As of Date: 02/01/2025 Noted Allergy Reaction DOFETILIDE 03/15/2020 14 - [...] spot in area of shot Date Reviewed: 02/01/2025 Reviewed by: Rickie Kam MA - Fully Assessed Reason for Visit: Established Patient [175] Cmt: CT RESULTS Primary Visit Diagnosis:Charcot arthropathy [M14.60] Other Visit Diagnosis:Disorder of bone, unspecified [M89.9] Order(s):VITAMIN D 25 HYDROXY [SQVITD] Order #: [id number] FUTURE Prescriptions as of 02/02/2025 - doxycycline (VIBRA-TABS) 100 mg tablet Take 1 tablet by mouth two times a day for 14 days. - mupirocin (BACTROBAN) 2 % ointment Apply to affected area three times a day. - alendronat (more content not included)... Normal [facility] CNTHERAPYon 02-01-2025 CNTHERAPY OT/PT/Speech Visit (SPPTAV) JESUS WOLF ([id number]) 1955 F Date Time Provider Department 02/01/25 3:00 PM ALVA DARNELL Date Time Provider Department [place] 02/01/2025 3:00 PM [id number] DARNELL SPPRYNE Rej Reason for Visit: PT Eval [747] PT Discharge [752] Primary Visit Diagnosis:Pain in left foot [M79.672] Other Visit Diagnoses:Closed fracture of left foot, initial encounter [S92.902A] Pain in right foot [M79.671] Allergies As of Date: 02/01/2025 Noted Allergy Reaction DOFETILIDE 03/15/2020 14 - [...] spot in area of shot Date Reviewed: 02/01/2025 Reviewed by: Rickie Kam MA - Fully Assessed Prescriptions as of 02/01/2025 - doxycycline (VIBRA-TABS) 100 mg tablet Take 1 tablet by mouth two times a day for 14 days. - mupirocin (BACTROBAN) 2 % ointment Apply to affected area three times a day. - alendronate (FOSAMAX) 70 mg tablet Take 1 tablet by mouth one time a week. In the morning with a full glass of water, on an empty stomach. Do not take anything else by mouth or lie down for the next 30 minutes. - Mesalamine (LIALDA) 1.2 gram EC tablet Take 4 tablets by mouth once daily. - hydrOXYchloroQUINE (PLAQUENIL) 200 mg tablet take 1 tablet by mouth twice a day with food - ferrous sulfate (IRON) 325 mg (65 mg iron) tablet Take 1 tablet by mouth once daily. - colestipol (COLESTID) 1 gram tablet TAKE 3 TABLETS BY MOUTH TWICE DAILY - pantoprazole DR (PROTONIX) 40 mg tablet Take 1 tablet by mouth twice daily - amiodarone (PACERONE) 200 mg tablet Take 300 mg by mouth once daily. Patient reports 300 mg by mouth daily - metoprolol succinate ER (TOPROL XL) 50 mg 24 hr tablet TAKE 1 TABLET BY MOUTH IN THE MORNING AND 2 TABLETS BY MOUTH IN THE EVENING - ELIQUIS 5 mg tab(s) Take 5 mg by mouth twice daily. - acetaminophen (TYLENOL) 500 mg tablet Take 1 tablet by mouth every 4 hours as needed for pain. - dybzyhe-muqnnwnfu-rkzz min D3 500 mg-5 mcg (200 unit) per tablet Take 1 tablet by mouth three times daily. - MV with Phi-Xuzpiqbe-Mfzqpf (CENTRUM SILVER) 0.4 mg-300 mcg- 250 mcg [...] mg tablet Take 10 mg by mouth two times a day. - Cholecalciferol, Vitamin D3, 2,000 unit cap Take by mouth once daily. - vitamin b complex(B COMPLEX TAB) one daily - multivitamins w-minerals/lut(CENTRUM SILVER TAB) Take one(1) tablet daily. Normal [facility] CT FOOT WO IVCON RTon 2024 CT FOOT WO IVCON RT * * *Final Report* * * DATE OF EXAM: Feb 01 2025 7:36AM [facility] 0074 - CT FOOT WO IVCON RT / PROCEDURE REASON: DJD (degenerative joint disease), ankle and foot, right * * * * Physician Interpretation * * * * CT FOOT WO IVCON RT HISTORY: DJD (degenerative joint disease), ankle and foot, right . djd TECHNIQUE: Spiral CT scanning of right foot was performed in axial plane. Coronal and sagittal reconstructions were obtained from the original data set. CT Radiation dose: Integrated Dose-length product (DLP) for this visit = 166 mGy*cm. CT Dose Reduction Employed: Automated exposure control(AEC) and iterative recon COMPARISON: Radiographs dated 01/19/2025. RESULT: First MTP arthrodesis with solid bony fusion. Hardware is intact with no evidence of loosening. No acute fracture or dislocation. Posterior and plantar calcaneal enthesophytes. 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 Osteoarthritis throughout the foot. Muscle fatty changes. Circumferential ankle soft tissue edema. LOCALIZER IMAGES: No significant additional findings. IMPRESSION: FRAGMENTATION OF THE NAVICULAR RELATED TO KNOWN NEUROPATHIC ARTHROPATHY. DEGENERATIVE AND POSTOPERATIVE CHANGES. ANKLE SOFT TISSUE EDEMA. Trans Router: [facility] Transcribe Date/Time: Feb 01 2025 9:38A Dictated by : JAY OCAMPO MD This examination was interpreted and the report reviewed and electronically signed by: JAY OCAMPO MD on Feb 01 2025 1:44PM EST [id number] Normal [facility] CT Foot - right WO contrasto n 02-01-2025 IMPRESSION: FRAGMENTATION OF THE NAVICULAR RELATED TO KNOWN NEUROPATHIC ARTHROPATHY. DEGENERATIVE AND POSTOPERATIVE CHANGES. ANKLE SOFT TISSUE EDEMA. Trans Router: [facility] Transcribe Date/Time: Feb 01 2025 9:38A Dictated by : JAY OCAMPO MD This examination was interpreted and the report reviewed and electronically signed by: JAY OCAMPO MD on Feb 01 2025 1:44PM EST [facility] * * *Final Report* * * DATE OF EXAM: Feb 01 2025 7:36AM [facility] 0074 - CT FOOT WO IVCON RT / PROCEDURE REASON: DJD (degenerative joint disease), ankle and foot, right * * * * Physician Interpretation * * * * CT FOOT WO IVCON RT HISTORY: DJD (degenerative joint disease), ankle and foot, right . djd TECHNIQUE: Spiral CT scanning of right foot was performed in axial plane. Coronal and sagittal reconstructions were obtained from the original data set. CT Radiation dose: Integrated Dose-length product (DLP) for this visit = 166 mGy*cm. CT Dose Reduction Employed: Automated exposure control(AEC) and iterative recon COMPARISON: Radiographs dated 01/19/2025. RESULT: First MTP arthrodesis with solid bony fusion. Hardware is intact with no evidence of loosening. No acute fracture or dislocation. Posterior and plantar calcaneal enthesophytes. 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 Osteoarthritis throughout the foot. Muscle fatty changes. Circumferential ankle soft tissue edema. LOCALIZER IMAGES: No significant additional findings. [facility] Provider, Cc [facility] [place] - 02/01/2025 * * *Final Report* * * DATE OF EXAM: Feb 01 2025 7:36AM [facility] 0074 - CT FOOT WO IVCON RT / PROCEDURE REASON: DJD (degenerative joint disease), ankle and foot, right * * * * Physician Interpretation * * * * CT FOOT WO IVCON RT HISTORY: DJD (degenerative joint disease), ankle and foot, right . djd TECHNIQUE: Spiral CT scanning of right foot was performed in axial plane. Coronal and sagittal reconstructions were obtained from the original data set. CT Radiation dose: Integrated Dose-length product (DLP) for this visit = 166 mGy*cm. CT Dose Reduction Employed: Automated exposure control(AEC) and iterative recon COMPARISON: Radiographs dated 01/19/2025. RESULT: First MTP arthrodesis with solid bony fusion. Hardware is intact with no evidence of loosening. No acute fracture or dislocation. Posterior and plantar calcaneal enthesophytes. 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 Osteoarthritis throughout the foot. Muscle fatty changes. Circumferential ankle soft tissue edema. LOCALIZER IMAGES: No significant additional findings. IMPRESSION IMPRESSION: FRAGMENTATION OF THE NAVICULAR RELATED TO KNOWN NEUROPATHIC ARTHROPATHY. DEGENERATIVE AND POSTOPERATIVE CHANGES. ANKLE SOFT TISSUE EDEMA. Trans Router: [facility] Transcribe Date/Time: Feb 01 2025 9:38A Dictated by : JAY OCAMPO MD This examination was interpreted and the report reviewed and electronically signed by: JAY OCAMPO MD on Feb 01 2025 1:44PM [facility]narrative[facility] contrastO rdered By: [facility] Provider on 02-01-2025 [facility] Telephone (ORAVON) JESUS WOLF ([id number]) 1955 F Date Time Provider Department 01/26/25 AIDEN HALL During your visit today, we recorded the following information about you: Curtis Lara 01/26/2025 4:59 PM Signed Jesus is calling Aiden Hall MD today with concern regarding Patient Update. Patient is having her pre surgery therapy at [facility] in [facility]. She needs the order for PT to be faxed to them at [phone] and phone is [phone]. Patient has been identified by name and birthdate. Person calling: self Call patient at: on cell [phone] (home) [phone] (cell) Was an appointment scheduled: No Closing statement: Results or non-symptom based questions: Thank you for calling [facility], your call will be returned within the next business day. Doreen Kahn RN 01/26/2025 6:29 PM Signed Order was faxed per her request. Doreen Ashby RN Allergies As of Date: 01/26/2025 Noted Allergy Reaction DOFETILIDE 03/15/2020 14 - [...] spot in area of shot Date Reviewed: 01/26/2025 Reviewed by: Coco Guzman RN - Fully Assessed Reason for Visit: Patient Update [1234] Prescriptions as of 01/26/2025 - doxycycline (VIBRA-TABS) 100 mg tablet Take 1 tablet by mouth two times a day for 14 days. - mupirocin (BACTROBAN) 2 % ointment Apply to affected area three times a day. - alendronate (FOSAMAX) 70 mg tablet Take 1 tablet by mouth one time a week. In the morning with a full glass of water, on an empty stomach. Do not take anything else by mouth or lie down for the next 30 minutes. - Mesalamine (LIALDA) 1.2 gram EC tablet Take 4 tablets by mouth once daily. - hydrOXYchloroQUINE (PLAQUENIL) 200 mg tablet take 1 tablet by mouth twice a day with food - ferrous sulfate (IRON) 325 mg (65 mg iron) tablet Take 1 tablet by mouth once daily. - colestipol (COLESTID) 1 gram tablet TAKE 3 TABLETS BY MOUTH TWICE DAILY - pantoprazole DR (PROTONIX) 40 mg tablet Take 1 tablet by mouth twice daily - amiodarone (PACERONE) 200 mg tablet Take 300 mg by mouth once daily. Patient reports 300 mg by mouth daily - metoprolol succinate ER (TOPROL XL) 50 mg 24 hr tablet TAKE 1 TABLET BY MOUTH IN THE MORNING AND 2 TABLETS BY MOUTH IN THE EVENING - ELIQUIS 5 mg tab(s) Take 5 mg by mouth twice daily. - acetaminophen (TYLENOL) 500 mg tablet Take 1 tablet by mouth every 4 hours as needed for pain. - ngtvtkc-orpqjzjjc-ffyv min D3 500 mg-5 mcg (200 unit) per tablet Take 1 tablet by mouth three times daily. - MV with Vnc-Ftkgxwtb-Cgnqgt (CENTRUM SILVER) 0.4 mg-300 mcg- 250 mcg [...] mg tablet Take 10 mg by mouth two times a day. - Cholecalciferol, Vitamin D3, 2,000 unit cap Take by mouth once daily. - vitamin b complex(B COMPLEX TAB) one daily - multivitamins w-minerals/lut(CENTRUM SILVER TAB) Take one(1) tablet daily. 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 Normal [facility] CNOVon 01-25-2025 CNOV Office Visit (OTOLCC ) JESUS WOLF Ezio ([id number]) 1955 F Date Time Provider Department 01/25/25 8:50 AM [facility] During your visit today, we recorded the following information about you: Pulse Respiration 77/minute 17/minute Curtis Ogden, ANTONIO.RESPIRATORY CLINICIAN 01/25/2025 10:18 AM Signed Recording using [employer] software for draft documentation of the visit was discussed with the patient/authorized professional healthcare representative; all questions welcomed and answered. Patient/authorized professional healthcare representative agreed to proceed Ms. Wolf is a 69 year old female who was recently seen on 01/18/2025 for 1. Left-sided epistaxis (R04.0) Recurrent, severe epistaxis originating from the left nostril, with the most recent episode occurring last night. Previous episodes required emergency department intervention, including nasal packing. Examination revealed a bleeding site on the nasal septum, located posteriorly. - Performed chemical cauterization using silver nitrate. - Applied Afrin-soaked cotton to achieve vasoconstriction and control bleeding. - Inserted Surgicel to provide additional hemostasis. - Prescribed antibiotic ointment to be applied intranasally 2-3 times daily for 10 days to promote healing and prevent infection. - Advised against routine use of Afrin; instructed to use only during active bleeding by soaking a cotton ball and applying it to the affected nostril with a clamp for 10 minutes. - Scheduled follow-up appointment on at 0850 to reassess and ensure resolution. 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 - Discussed increased risk of recurrent epistaxis due to anticoagulation therapy. - Emphasized the importance of following epistaxis management instructions to minimize bleeding risks. Jesus Wolf is a 69-year-old female with a history of lupus, presenting for follow-up of recurrent epistaxis. Jesus reports recurrent epistaxis, initially noticed on Thursday night before bed. The bleeding persisted into the following morning, described as oozing rather than gushing. She applied a clamp for 15 minutes, which helped reduce the bleeding but did not completely stop it. She did not use Afrin during this episode. Jesus has been using an ointment as previously instructed but discontinued it on Thursday night due to concerns about exacerbating the bleeding. She denies any bleeding from the right nostril. She has a history of lupus, which has led to complications including Charcot arthropathy, osteonecrosis, and neuropathy. 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 She has a CT scan scheduled for next Thursday at 0700, followed by physical therapy at 1200 and a consultation at 1400. She is on Eliquis due to a history of clotting and has been advised to continue the medication. Past history : PAST MEDICAL HISTORY Diagnosis Date Atrial fibrillation (HCC) on coumadin Herniated intervertebral disk HTN (hypertension) Hyperlipemia Kidney disease MONI (obstructive sleep apnea) no longer using CPAP since 60 lb weight loss Other acute pancreatitis with uninfected necrosis (HCC) SLE (systemic lupus erythematosus) (HCC) Current medication: Current Outpatient Medications Medication Sig mupirocin (BACTROBAN) 2 % ointment Apply to affected area three times a day. alendronate (FOSAMAX) 70 mg tablet Take 1 tablet by mouth one time a week. In the morning with a full glass of water, on an empty stomach. Do not take anything else by mouth or lie down for the next 30 minutes. Mesalamine (LIALDA) 1.2 gram EC tablet Take 4 tablets by mouth once daily. hydrOXYchloroQUINE (PLAQUENIL) 200 mg tablet take 1 tablet by mouth twice a day with food ferrous sulfate (IRON) 325 mg (65 mg iron) tablet Take 1 tablet by mouth once daily. colestipol (COLESTID) 1 gram tablet TAKE 3 TABLETS BY MOUTH TWICE DAILY pantoprazole DR (PROTONIX) 40 mg tablet Take 1 tablet by mouth twice daily amiodarone (PACERONE) 200 mg tablet Take 300 mg by mouth once daily. Patient reports 300 mg by mouth daily metoprolol succinate ER (TOPROL XL) 50 mg 24 hr tablet TAKE 1 TABLET BY MOUTH IN THE MORNING AND 2 TABLETS BY MOUTH IN THE EVENING ELIQUIS 5 mg tab(s) Take 5 mg by mouth twice daily. acetaminophen (TYLENOL) 500 mg tablet Take 1 tablet by mouth every 4 hours as needed for pain. ohqyyto-rruatxamj-knjl min D3 500 mg-5 mcg (200 unit) per tablet Take 1 tablet by mouth three times daily. MV with Bno-Wmhszjie-Njobup (CENTRUM SILVER) 0.4 mg-300 mcg- 250 mcg tab Take 1 tablet by mouth once daily. sucralfate (CARAFATE) 100 mg/mL suspension Take 10 mL by mouth four times daily. atorvastatin (LIPITOR) 40 mg (more content not included)... Normal [facility] CNOVon 01-23-2025 CNOV Office Visit (ORAVON ) JESUS WOLF ([id number]) 1955 F Date Time Provider Department 01/23/25 10:00 AM AIDEN HALL During your visit today, we recorded the following information about you: Aiden Hall MD 01/23/2025 11:28 AM Signed [facility] Patient Visit Consultation requested by No referring provider defined for this encounter. for an opinion regarding Ms. Jesus Wolf, and my final recommendations will be communicated back to the requesting physician by way of shared medical record or letter via US mail. CHIEF COMPLAINT: Right foot Charcot arthropathy Right midfoot DJD, severe Right hindfoot DJD, severe Right navicular fracture with subsequent resorption, NC and TN joint DJD, severe History of lupus with neuropathy HISTORY OF PRESENT ILLNESS: Jesus Wolf is a 69 year old female who presents today for evaluation of a right navicular fracture that occurred on 11/25/24. She has been followed by podiatry and has been treated with a boot and non weight bearing instructions. There has been no improvement and was referred to Orthopedic surgery for further evaluation. Extremities reveals fracture of the navicular as well as Charcot changes in the midfoot and hindfoot with plantarflexion of the talus present Location of Pain: left The pain is present 2 out of 10 , occ sharp pain The pain is a 2/10 at its best, and 3/10 at its worst. They denies nocturnal pain. The pain is exacerbated by non weight bearing instructions currently . The pain is improved with rest. They report no. They are able to walk 10 minutes before having to stop secondary to pain. 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 Eyes: extraocular movements intact, pupils are equal, round, and reactive to light. Cardiovascular: normal pulses Pulmonary: normal work of breathing on room air Skin: capillary refill takes less than 2 seconds Neurological: AOx4, follows commands Musculoskeletal: Right lower extremity Inspection: Right foot with severe flat foot deformity present on stance examination with only mild amount of swelling present, no violation of skin, no wounds Palpation: Tender palpation of the medial hindfoot ROM: Tolerates toe range of motion and ankle range of motion, ankle range of motion is about neutral to 20 degrees plantarflexion Neuro: sensation intact in the superficial peroneal, deep peroneal, tibial, sural, and saphenous nerve distributions Vascular: DP pulse present, 2+ Compartments: compartments of leg are soft and compressible IMAGING: X-ray imaging of the right foot, 3 views, was independently evaluated and reveals navicular fracture with bone loss present, displacement of fracture fragment with severe DJD of the midfoot including at the 2nd and 3rd TMT joints, plantarflexion of the talus, DJD of the NC joint. She has prior hardware present, hallux IP joint fusion with plate and 2 independent screws ASSESSMENT I reviewed the imaging studies, physical exam findings, and clinical course with the patient today. Right foot Charcot arthropathy Right midfoot DJD, severe Right hindfoot DJD, severe Right navicular fracture with subsequent resorption, NC and TN joint DJD, severe History of lupus with neuropathy PLAN: I am extensive discussion with patient today that she has a complex foot deformity. We discussed that she has Charcot arthropathy which is likely secondary to her lupus and neuropathy thereafter. We discussed management of her Charcot arthropathy would be done concurrently with management of the navicular fracture. I discussed that the navicular fracture is a sequelae of Charcot arthropathy given that she had no pain for 1 week after the initial injury. In addition I discussed that management of this would have to be done through fusion surgeries given the extent of her deformity, DJD, and bone loss associated with a navicular fracture. We briefly discussed surgical plan which would involve extended medial column fusion, subtalar joint fusion, 2nd and 3rd TMT joint fusion, bone grafting, additional procedures as needed She will follow-up after completion of CT imaging of the right foot for discussion of surgical management. She will also complete preoperative (more content not included)... Normal [facility] CNOVon 01-19-2025 CNOV Office Visit (PDAVON ) JESUS WOLF ([id number]) 1955 F Date Time Provider Department 01/19/25 1:30 PM BEVERLY FRANCO PDAVON During your visit today, we recorded the following information about you: Beverly Franco, KHADIJAH 01/19/2025 2:20 PM Signed SERVICE DATE: January 19, 2025 PCP: Wojciech Treviño MD, DO Subjective Patient ID: Jesus is a 69 year old female. Patient presents with her s/p injury sustained in the middle of November. Patient walked on foot until follow-up with PCP. she states it is still sore. Chief Complaint: Patient presents with: Fracture: Closed nondisplaced fx of the navicular bone right foot PAIN EVALUATION No data found in the last 1 encounters. HPI patient sustained an injury during a fall in mid November and was initially seen by her PCP and ultimately seen here approximately 3 weeks later on December 21 where x-ray was obtained displaying a closed nondisplaced fracture of the navicular. Patient was immobilized and made nonweightbearing at that time TREATMENTS PRIOR TO CONSULT: Immobilization and nonweightbearing Review of Systems ACTIVE PROBLEM LIST Edema [...] Thoracic Ascending Aortic Aneurysm Hypercalcemia Hyperparathyroid (Hcc) Thin Blood Pulmonary Hypertension (Hcc) PAST MEDICAL HISTORY Diagnosis Date Atrial fibrillation (HCC) on coumadin Herniated intervertebral disk HTN (hypertension) Hyperlipemia Kidney disease MONI (obstructive sleep apnea) no longer using CPAP since 60 lb weight loss Other acute pancreatitis with uninfected necrosis (HCC) SLE (systemic lupus erythematosus) (HCC) PAST SURGICAL HISTORY Procedure Laterality Date APPENDECTOMY CARPAL TUNNEL RIGHT WRIST surgical correction COLONOSCOPY 05/10/2019 [facility] COLONOSCOPY GEN ANES 07/23/2020 Dr. Frances/Diverticulosis/H emorrhoids/ Ulcerative Colitis/Rpt in 2 yrs. COLONOSCOPY SCREENING 03/2023 EGD EUS 01/11/2020 [facility] LASIK Right prior to 1999 MRI PANC/JEANIE WO/W IVCON 12/20/2019 [facility] PAST SURGICAL HISTORY OF 07/2013 bilateral foot procedure, [place] PAST SURGICAL HISTORY OF Ablation X2 TONSILLECTOMY HX FAMILY HISTORY Problem Relation Age of Onset Alzheimer's Disease Father Hypertension Father Cataract Mother Hypertension Mother Colon Cancer Mother Cataract Sister Hypertension Sister Colon Cancer Paternal Uncle Social History Tobacco Use Smoking status: Never Smokeless tobacco: Never Vaping Use Vaping status: Never Used Substance Use Topics Alcohol use: Yes Comment: [...] red spot in area of shot MEDICATIONS: mupirocin (BACTROBAN) 2 % ointment Apply to affected area three times a day. alendronate (FOSAMAX) 70 mg tablet Take 1 tablet by mouth one time a week. In the morning with a full glass of water, on an empty stomach. Do not take anything else by mouth or lie down for the next 30 minutes. Mesalamine (LIALDA) 1.2 gram EC tablet Take 4 tablets by mouth once daily. hydrOXYchloroQUINE (PLAQUENIL) 200 mg tablet take 1 tablet by mouth twice a day with food ferrous sulfate (IRON) 325 mg (65 mg iron) tablet Take 1 tablet by mouth once daily. colestipol (COLESTID) 1 gram tablet TAKE 3 TABL (more content not included)... Normal [facility] XR FOOT 3V AP/LAT/OBL RTon 0 - XR FOOT 3V AP/LAT/OBL RT * * *Final Report* * * DATE OF EXAM: Jan 19 2025 1:32PM AFR [id number] - XR FOOT 3V AP/LAT/OBL RT / PROCEDURE REASON: multiple diagnoses * * * * Physician Interpretation * * * * HISTORY: Sprain of right foot, initial encounter Closed nondisplaced fracture of navicular bone of right foot, initial encounter Osteoarthritis of midtarsal joint of right foot TECHNOLOGIST PROVIDED HISTORY (if applicable): POST OP F/U RT FOOT TECHNIQUE: XR FOOT 3V AP/LAT/OBL RT RESULT: 3 views of the RIGHT foot are compared with 12/21/2024. The previously seen sagittally oriented fracture of the navicular involving both articular surfaces is again seen. The fracture is brought or than on the prior examination consistent with a combination resorption and displacement. Mixed lucency and sclerosis has progressed in the medial fracture fragment suggestive of osteonecrosis. Slight increase in the dorsal displacement. Surrounding soft tissue swelling is again seen. Joint space narrowing with osteophytes and subchondral cystlike changes are noted at the first through fifth tarsometatarsal joints without definite Lisfranc malalignment, similar to prior. Postoperative changes from hallux metatarsophalangeal arthrodesis are again seen with mature bony fusion and without signs of hardware loosening or failure. Severe degenerative changes at the hallux interphalangeal and second toe proximal interphalangeal joints similar to prior. Less severe changes at other interphalangeal joints. Deformity of the second metatarsal head is unchanged and could be related to remote surgery or more likely a remote fracture. Pes planus with calcaneal spurs unchanged. IMPRESSION: NAVICULAR FRACTURE WITH PROGRESSIVE FINDINGS SUGGESTIVE OF CHARCOT ARTHROPATHY. Trans Router: [facility] Transcribe Date/Time: Jan 19 2025 4:42P Dictated by : MIRTHA KENDRICK MD This examination was interpreted and the report reviewed and electronically signed by: MIRTHA KENDRICK MD on Jan 19 2025 4:45PM EST [id number] Normal [facility] XR Foot - right AP and Later al and obliqueon 01-19-2025 * * *Final Report* * * DATE OF EXAM: Jan 19 2025 1:32PM AFR [id number] - XR FOOT 3V AP/LAT/OBL RT / PROCEDURE REASON: multiple diagnoses * * * * Physician Interpretation * * * * HISTORY: Sprain of right foot, initial encounter Closed nondisplaced fracture of navicular bone of right foot, initial encounter Osteoarthritis of midtarsal joint of right foot TECHNOLOGIST PROVIDED HISTORY (if applicable): POST OP F/U RT FOOT TECHNIQUE: XR FOOT 3V AP/LAT/OBL RT RESULT: 3 views of the RIGHT foot are compared with 12/21/2024. The previously seen sagittally oriented fracture of the navicular involving both articular surfaces is again seen. The fracture is brought or than on the prior examination consistent with a combination resorption and displacement. Mixed lucency and sclerosis has progressed in the medial fracture fragment suggestive of osteonecrosis. Slight increase in the dorsal displacement. Surrounding soft tissue swelling is again seen. Joint space narrowing with osteophytes and subchondral cystlike changes are noted at the first through fifth tarsometatarsal joints without definite Lisfranc malalignment, similar to prior. Postoperative changes from hallux metatarsophalangeal arthrodesis are again seen with mature bony fusion and without signs of hardware loosening or failure. Severe degenerative changes at the hallux interphalangeal and second toe proximal interphalangeal joints similar to prior. Less severe changes at other interphalangeal joints. Deformity of the second metatarsal head is unchanged and could be related to remote surgery or more likely a remote fracture. Pes planus with calcaneal spurs unchanged. DIVISION OF RADIOLOGY Provider, [facility] - 01/19/2025 * * *Final Report* * * DATE OF EXAM: Jan 19 2025 1:32PM AFR [id number] - XR FOOT 3V AP/LAT/OBL RT / PROCEDURE REASON: multiple diagnoses * * * * Physician Interpretation * * * * HISTORY: Sprain of right foot, initial encounter Closed nondisplaced fracture of navicular bone of right foot, initial encounter Osteoarthritis of midtarsal joint of right foot TECHNOLOGIST PROVIDED HISTORY (if applicable): POST OP F/U RT FOOT TECHNIQUE: XR FOOT 3V AP/LAT/OBL RT RESULT: 3 views of the RIGHT foot are compared with 12/21/2024. The previously seen sagittally oriented fracture of the navicular involving both articular surfaces is again seen. The fracture is brought or than on the prior examination consistent with a combination resorption and displacement. Mixed lucency and sclerosis has progressed in the medial fracture fragment suggestive of osteonecrosis. Slight increase in the dorsal displacement. Surrounding soft tissue swelling is again seen. Joint space narrowing with osteophytes and subchondral cystlike changes are noted at the first through fifth tarsometatarsal joints without definite Lisfranc malalignment, similar to prior. Postoperative changes from hallux metatarsophalangeal arthrodesis are again seen with mature bony fusion and without signs of hardware loosening or failure. Severe degenerative changes at the hallux interphalangeal and second toe proximal interphalangeal joints similar to prior. Less severe changes at other interphalangeal joints. Deformity of the second metatarsal head is unchanged and could be related to remote surgery or more likely a remote fracture. Pes planus with calcaneal spurs unchanged. IMPRESSION IMPRESSION: NAVICULAR FRACTURE WITH PROGRESSIVE FINDINGS SUGGESTIVE OF CHARCOT ARTHROPATHY. Trans Router: [facility] Transcribe Date/Time: Jan 19 2025 4:42P Dictated by : MIRTHA KENDRICK MD This examination was interpreted and the report reviewed and electronically signed by: MIRTHA KENDRICK MD on Jan 19 2025 4:45PM [facility] Radiology Study observation (narrative) [facility] loz[facility] XR Foot - right AP and Later al and obliqueOrdered By: Ccf Provider on 01-19-2025 [facility] CNOVon 01-18-2025 CNOV Office Visit (OTOLCC ) JESUS WOLF ([id number]) 1955 F Date Time Provider Department 01/18/25 8:50 AM CURTIS OGDEN [facility] During your visit today, we recorded the following information about you: Pulse Respiration 97/minute 18/minute Curtis Ogden APRN.CNP 01/18/2025 3:39 PM Signed Recording using [employer] software for draft documentation of the visit was discussed with the patient/authorized professional healthcare representative; all questions welcomed and answered. Patient/authorized professional healthcare representative agreed to proceed Ms. Wolf is a 69 year old female who comes in for evaluation of nosebleeds. Jesus is a 69-year-old female, with a history of A-fib and A-flutter, presenting with recurrent epistaxis. Jesus reports recurrent epistaxis, primarily from the left nostril, with a significant episode in October 2019 requiring ER visit and nasal packing for 3 days. She has experienced intermittent episodes since, with increased frequency during the winter. The most recent severe episode occurred last month, lasting approximately 30 minutes, causing gagging and necessitating another ER visit where nasal clamping was performed. Last night, she experienced another episode upon sitting up in bed, with blood gushing from her left nostril. She denies associated cephalalgia, dizziness, or nausea, but occasionally feels pressure in the nasal area. She is currently on Eliquis for A-fib and A-flutter and denies taking aspirin. She has been using Afrin nasal spray intermittently, approximately every other day, but not on a routine basis. She denies allergies to lidocaine or decongestants. Past history : PAST MEDICAL HISTORY Diagnosis Date Atrial fibrillation (HCC) on coumadin Herniated intervertebral disk HTN (hypertension) Hyperlipemia Kidney disease MONI (obstructive sleep apnea) no longer using CPAP since 60 lb weight loss Other acute pancreatitis with uninfected necrosis (HCC) SLE (systemic lupus erythematosus) ([facility]) Current medication: Current Outpatient Medications Medication Sig alendronate (FOSAMAX) 70 mg tablet Take 1 tablet by mouth one time a week. In the morning with a full glass of water, on an empty stomach. Do not take anything else by mouth or lie down for the next 30 minutes. Mesalamine (LIALDA) 1.2 gram EC tablet Take 4 tablets by mouth once daily. hydrOXYchloroQUINE (PLAQUENIL) 200 mg tablet take 1 tablet by mouth twice a day with food ferrous sulfate (IRON) 325 mg (65 mg iron) tablet Take 1 tablet by mouth once daily. colestipol (COLESTID) 1 gram tablet TAKE 3 TABLETS BY MOUTH TWICE DAILY pantoprazole DR (PROTONIX) 40 mg tablet Take 1 tablet by mouth twice daily amiodarone (PACERONE) 200 mg tablet Take 300 mg by mouth once daily. Patient reports 300 mg by mouth daily metoprolol succinate ER (TOPROL XL) 50 mg 24 hr tablet TAKE 1 TABLET BY MOUTH IN THE MORNING AND 2 TABLETS BY MOUTH IN THE EVENING ELIQUIS 5 mg tab(s) Take 5 mg by mouth twice daily. acetaminophen (TYLENOL) 500 mg tablet Take 1 tablet by mouth every 4 hours as needed for pain. fpeanat-eqtvgywad-pflt min D3 500 mg-5 mcg (200 unit) per tablet Take 1 tablet by mouth three times daily. MV with Szp-Lbwrpfiv-Dwakol (CENTRUM SILVER) 0.4 mg-300 mcg- 250 mcg [...] mg tablet Take 10 mg by mouth two times a day. Cholecalciferol, Vitamin D3, 2,000 unit cap Take by mouth once daily. vitamin b complex(B COMPLEX TAB) one daily multivitamins w-minerals/lut(CENTRUM SILVER TAB) Take one(1) tablet daily. No current facility-administered medications for this visit. Allergies: ALLERGIES Allergen Reactions Dofetilide Other: See Comments, [...] Comments red spot in area of shot Social history: Social History Tobacco (more content not included)... Normal [facility] CNOVon 12-22-2024 CNOV Office Visit (PULMLK ) JESUS WOLF ([id number]) 1955 F Date Time Provider Department 12/22/24 8:30 AM WILL GREER During your visit today, we recorded the following information about you: Temperature Pulse Respiration Blood pressure 97.3 degrees 78/minute 20/minute 118/70 Will Greer MD 12/22/2024 1:07 PM Signed Pulmonary Consult Patient Name: Jesus Wolf PRIMARY CARE PHYSICIAN: Wojciech Treviño MD, DO REASON FOR CONSULT: Shortness of breath REQUESTING PHYSICIAN: Dione Frances MD My final recommendations will be communicated to the requesting health care provider by way of the shared medical record for internal providers or letter via the [employer] for external providers. ASSESSMENT AND PLAN: I discussed the plan in detail with the patient ASSESSMENT/PLAN: 1. Chronic diastolic congestive heart failure (HCC) - ICD9: 428.32, 428.0, ICD10: I50.32 (primary diagnosis) 2. Pulmonary hypertension (HCC) - ICD9: 416.8, ICD10: I27.20 3. Obstructive sleep apnea syndrome - ICD9: 327.23, ICD10: G47.33 4. Obesity, Class III, BMI >= 40 - ICD9: 278.01, ICD10: E66.813 69-year-old woman seen for evaluation of shortness of breath. She has had a relatively extensive workup to this point. For now, I think her shortness of breath is multifactorial. She has grade 2 diastolic dysfunction, untreated obstructive sleep apnea, and evidence of pulmonary hypertension on her echocardiogram. I suspect there is also a component of deconditioning. I will work to obtain her outside sleep study and see if she could be a candidate for an inspire device as she is intolerant of positive pressure therapy. I have the report from her recent chest CT but we will work to obtain the images of this. I will also discuss her echocardiogram findings with our pulmonary hypertension specialist. CHIEF COMPLAINT: Shortness of breath HISTORY OF PRESENT ILLNESS: Jesus Wolf is a 69 year old female, There were no vitals taken for this visit., with a history of shortness of breath which has gotten progressively worse over the past year. She has a history of atrial fibrillation and has undergone several ablations for this. She is currently on amiodarone for this and has been in rhythm. She tells me she gets quite symptomatic and shortness of breath (even more so) when in atrial fibrillation. She denies significant cough. She denies chest pain. She is able to ambulate and climb a flight of stairs but finds this difficult due to dyspnea. She has lupus and is limited by musculoskeletal pain as well. She does complain of orthopnea. She denies significant lower extremity edema and is on Lasix. She has a history of obstructive sleep apnea but has been intolerant of positive pressure therapy for this. PAST MEDICAL HISTORY Diagnosis Date Atrial fibrillation (HCC) on coumadin Herniated intervertebral disk HTN (hypertension) Hyperlipemia Kidney disease MONI (obstructive sleep apnea) no longer using CPAP since 60 lb weight loss Other acute pancreatitis with uninfected necrosis (HCC) SLE (systemic lupus erythematosus) (HCC) PAST SURGICAL HISTORY Procedure Laterality Date APPENDECTOMY CARPAL TUNNEL RIGHT WRIST surgical correction COLONOSCOPY 05/10/2019 [facility] COLONOSCOPY GEN ANES 07/23/2020 Dr. Frances/Diverticulosis/H emorrhoids/ Ulcerative Colitis/Rpt in 2 yrs. COLONOSCOPY SCREENING 03/2023 EGD EUS 01/11/2020 [facility] LASIK Right prior to [...] Never Smokeless tobacco: Never Vaping Use Vaping status: Never Used Substance Use Topics Alcohol use: Yes Comment: very rare Drug use: No Comment: denies tx for drug/alcohol abuse in the past. ALLERGIES: ALLERGIES Allergen Reactions Dofetilide Other: See [...] Comments red spot in area of shot CURRENT OUTPATI (more content not included)... Normal [facility] CNOVon 12-21-2024 CNOV Office Visit (PDAVON ) LUCIANOJESUS Rowley ([id number]) 1955 F Date Time Provider Department 12/21/24 12:30 PM BEVERLY FRANCO PDAVON During your visit today, we recorded the following information about you: Beverly Franco, KHADIJAH 12/21/2024 1:17 PM Signed SERVICE DATE: December 21, 2024 PCP: Wojciech Treviño MD, DO Subjective Patient ID: Jesus is a 69 year old female. Patient presents today accompanied by her with complaint of pain and swelling of her right foot and ankle Chief Complaint: Patient presents with: Ankle Pain: Right Swelling: Right foot and ankle Foot Pain (Midfoot): Dorsal midfoot PAIN EVALUATION 12/21/2024 1218 Pain Level: 10 Pain Location: Foot-Right Description: Aching;Dull;Stabbing;S harp;Burning Duration Units: Weeks Frequency: Continuous HPI patient provides history that about 3 weeks ago she tripped going up a curb and started develop pain and swelling about a week and a half ago. She saw her PCP after the injury. Patient states that she has had bunion surgery on the right with a fusion of the big toe, and knows that she has severe arthritis in both feet. She presents today in wheelchair stating that her pain is 10/10. Patient is anticoagulated with Eliquis TREATMENTS PRIOR TO INITIAL CONSULT: Patient utilized ice inconsistently and elevation Review of Systems ACTIVE PROBLEM LIST Edema [...] Thoracic Ascending Aortic Aneurysm Hypercalcemia Hyperparathyroid (Hcc) Thin Blood PAST MEDICAL HISTORY Diagnosis Date Arrhythmia Atrial fibrillation (HCC) on coumadin Herniated intervertebral disk HTN (hypertension) Hyperlipemia Kidney disease MONI (obstructive sleep apnea) no longer using CPAP since 60 lb weight loss Other acute pancreatitis with uninfected necrosis (HCC) SLE (systemic lupus erythematosus) ([facility]) Sleep apnea 07/29/2012 PAST SURGICAL HISTORY Procedure Laterality Date APPENDECTOMY CARPAL TUNNEL RIGHT WRIST surgical correction COLONOSCOPY 05/10/2019 [facility] COLONOSCOPY GEN ANES 07/23/2020 Dr. Frances/Diverticulosis/H emorrhoids/ Ulcerative Colitis/Rpt in 2 yrs. COLONOSCOPY SCREENING 03/2023 EGD EUS 01/11/2020 [facility] LASIK Right prior to [...] Never Smokeless tobacco: Never Vaping Use Vaping status: Never Used Substance Use Topics Alcohol use: Yes Comment: [...] red spot in area of shot MEDICATIONS: alendronate (FOSAMAX) 70 mg tablet Take 1 tablet by mouth one time a week. In the morning with a full glass of water, on an empty stomach. Do not take anything else by mouth or lie down for the next 30 minutes. Mesalamine (LIALDA) 1.2 gram EC tablet Take 4 tablets by mouth once daily. hydrOXYchloroQUINE (PLAQUENIL) 200 mg tablet take 1 t (more content not included)... Normal [facility] XR FOOT 3V AP/LAT/OBL RTon 0 - XR FOOT 3V AP/LAT/OBL RT * * *Final Report* * * DATE OF EXAM: Dec 21 2024 12:00PM AFR [id number] - XR FOOT 3V AP/LAT/OBL RT / PROCEDURE REASON: Pain in right foot * * * * Physician Interpretation * * * * HISTORY: Pain in right foot . TECHNIQUE: XR FOOT 3V AP/LAT/OBL RT Laterality: RIGHT Number of different views (projections): 3 COMPARISON: Radiographs dated 07/02/2023. RESULT: Comminuted navicular fracture. First MTP arthrodesis with no evidence of hardware failure or loosening. Posterior and plantar calcaneal enthesophytes. Osteoarthritis throughout the foot. Dorsal foot soft tissue swelling. Mild to moderate pes planus. No other significant abnormality. - IMPRESSION: Navicular fracture. Soft tissue swelling. Postoperative and degenerative changes. Trans Router: [facility] Transcribe Date/Time: Dec 21 2024 1:49P Dictated by : JAY OCAMPO MD This examination was interpreted and the report reviewed and electronically signed by: JAY OCAMPO MD on Dec 21 2024 4:03PM EST [id number] Normal [facility] XR Foot - right AP and Later al and obliqueon 12-21-2024 IMPRESSION: Navicular fracture. Soft tissue swelling. Postoperative and degenerative changes. Trans Router: [facility] Transcribe Date/Time: Dec 21 2024 1:49P Dictated by : JAY OCAMPO MD This examination was interpreted and the report reviewed and electronically signed by: JAY OCAMPO MD on Dec 21 2024 4:03PM [facility] DIVISION OF RADIOLOGY * * *Final Report* * * DATE OF EXAM: Dec 21 2024 12:00PM AFR 5337 - XR FOOT 3V AP/LAT/OBL RT / PROCEDURE REASON: Pain in right foot * * * * Physician Interpretation * * * * HISTORY: Pain in right foot . TECHNIQUE: XR FOOT 3V AP/LAT/OBL RT Laterality: RIGHT Number of different views (projections): 3 COMPARISON: Radiographs dated 07/02/2023. RESULT: Comminuted navicular fracture. First MTP arthrodesis with no evidence of hardware failure or loosening. Posterior and plantar calcaneal enthesophytes. Osteoarthritis throughout the foot. Dorsal foot soft tissue swelling. Mild to moderate pes planus. No other significant abnormality. - DIVISION OF RADIOLOGY Provider, [facility] [place] - 12/21/2024 * * *Final Report* * * DATE OF EXAM: Dec 21 2024 12:00PM AFR 5337 - XR FOOT 3V AP/LAT/OBL RT / PROCEDURE REASON: Pain in right foot * * * * Physician Interpretation * * * * HISTORY: Pain in right foot . TECHNIQUE: XR FOOT 3V AP/LAT/OBL RT Laterality: RIGHT Number of different views (projections): 3 COMPARISON: Radiographs dated 07/02/2023. RESULT: Comminuted navicular fracture. First MTP arthrodesis with no evidence of hardware failure or loosening. Posterior and plantar calcaneal enthesophytes. Osteoarthritis throughout the foot. Dorsal foot soft tissue swelling. Mild to moderate pes planus. No other significant abnormality. - IMPRESSION IMPRESSION: Navicular fracture. Soft tissue swelling. Postoperative and degenerative changes. Trans Router: [facility] Transcribe Date/Time: Dec 21 2024 1:49P Dictated by : JAY OCAMPO MD This examination was interpreted and the report reviewed and electronically signed by: JAY OCAMPO MD on Dec 21 2024 4:03PM [facility] Radiology Study observation (narrative) Jay lozada [facility] XR Foot - right AP and Later al and obliqueOrdered By: [facility] Provider on 12-21-2024 [facility] Sarita 12-20-2024 CNPN Telephone (PODICR) JESUS WOLF ([id number]) 1955 F Date Time Provider Department 12/20/24 BEVERLY FRANCO During your visit today, we recorded the following information about you: Selin Birmingham LPN 12/20/2024 8:42 AM Signed Patient contacted updated the images are not in chart for Dr. Franco to review. Patient agreeable to have xrays completed prior to appointment. Patient grateful for call. Selin Birmingham LPN Allergies As of Date: 12/20/2024 Noted Allergy Reaction DOFETILIDE 03/15/2020 14 - [...] spot in area of shot Date Reviewed: 12/01/2024 Reviewed by: Adelaide Casillas RN - Fully Assessed Reason for Visit: Appointment [186] Cmt: Xray Prescriptions as of 12/20/2024 - alendronate (FOSAMAX) 70 mg tablet Take 1 tablet by mouth one time a week. In the morning with a full glass of water, on an empty stomach. Do not take anything else by mouth or lie down for the next 30 minutes. - Mesalamine (LIALDA) 1.2 gram EC tablet Take 4 tablets by mouth once daily. - hydrOXYchloroQUINE (PLAQUENIL) 200 mg tablet take 1 tablet by mouth twice a day with food - ferrous sulfate (IRON) 325 mg (65 mg iron) tablet Take 1 tablet by mouth once daily. - colestipol (COLESTID) 1 gram tablet TAKE 3 TABLETS BY MOUTH TWICE DAILY - pantoprazole DR (PROTONIX) 40 mg tablet Take 1 tablet by mouth twice daily - amiodarone (PACERONE) 200 mg tablet Take 1 tablet by mouth every 12 hours. - metoprolol succinate ER (TOPROL XL) 50 mg 24 hr tablet TAKE 1 TABLET BY MOUTH IN THE MORNING AND 2 TABLETS BY MOUTH IN THE EVENING - ELIQUIS 5 mg tab(s) Take 5 mg by mouth twice daily. - acetaminophen (TYLENOL) 500 mg tablet Take 1 tablet by mouth every 4 hours as needed for pain. - lwesifg-retkpprqg-ofko min D3 500 mg-5 mcg (200 unit) per tablet Take 1 tablet by mouth three times daily. - MV with Cek-Nakcacdm-Wtbbur (CENTRUM SILVER) 0.4 mg-300 mcg- 250 mcg [...] mg tablet Take 10 mg by mouth two times a day. - Cholecalciferol, Vitamin D3, 2,000 unit cap Take by mouth once daily. - vitamin b complex(B COMPLEX TAB) one daily - multivitamins w-minerals/lut(CENTRUM SILVER TAB) Take one(1) tablet daily. 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 Normal [facility] CNPNon 12-19-2024 CNPN Telephone (AndroJek) JESUS WOLF ([id number]) 1955 F Date Time Provider Department 12/19/24 DALILA JONES During your visit today, we recorded the following information about you: Yesy Grace, JITENDRA 12/19/2024 9:10 AM Signed Pt is identified by name and birthdate: Yes Patient calls to make appt with Dr. Nayeli Jones for Right Foot Swelling - states she fell a few weeks ago and she is in pain/swelling. Denies Redness TOM: 03/05/21 Advised to be seen in [facility]. Patient agreeable Allergies As of Date: 12/19/2024 Noted Allergy Reaction DOFETILIDE 03/15/2020 14 - [...] spot in area of shot Date Reviewed: 12/01/2024 Reviewed by: Adelaide Casillas RN - Fully Assessed Reason for Visit: Foot Swelling [1972] Prescriptions as of 12/19/2024 - alendronate (FOSAMAX) 70 mg tablet Take 1 tablet by mouth one time a week. In the morning with a full glass of water, on an empty stomach. Do not take anything else by mouth or lie down for the next 30 minutes. - Mesalamine (LIALDA) 1.2 gram EC tablet Take 4 tablets by mouth once daily. - hydrOXYchloroQUINE (PLAQUENIL) 200 mg tablet take 1 tablet by mouth twice a day with food - ferrous sulfate (IRON) 325 mg (65 mg iron) tablet Take 1 tablet by mouth once daily. - colestipol (COLESTID) 1 gram tablet TAKE 3 TABLETS BY MOUTH TWICE DAILY - pantoprazole DR (PROTONIX) 40 mg tablet Take 1 tablet by mouth twice daily - amiodarone (PACERONE) 200 mg tablet Take 1 tablet by mouth every 12 hours. - metoprolol succinate ER (TOPROL XL) 50 mg 24 hr tablet TAKE 1 TABLET BY MOUTH IN THE MORNING AND 2 TABLETS BY MOUTH IN THE EVENING - ELIQUIS 5 mg tab(s) Take 5 mg by mouth twice daily. - acetaminophen (TYLENOL) 500 mg tablet Take 1 tablet by mouth every 4 hours as needed for pain. - cuhhaqf-fqluylreu-njxc min D3 500 mg-5 mcg (200 unit) per tablet Take 1 tablet by mouth three times daily. - MV with Jsw-Nuriocgv-Njytrd (CENTRUM SILVER) 0.4 mg-300 mcg- 250 mcg [...] mg tablet Take 10 mg by mouth two times a day. - Cholecalciferol, Vitamin D3, 2,000 unit cap Take by mouth once daily. - vitamin b complex(B COMPLEX TAB) one daily - multivitamins w-minerals/lut(CENTRUM SILVER TAB) Take one(1) tablet daily. 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 Normal [facility] XR Ankle - right 3 Viewson 0 12-19-2024 [facility] Rad[facility] Study observation (narrative) [facility] ECG 12 Leadon 12-07-2024 ECG revealed normal sinus rhythm, normal ECG. [facility] Work Phone: $ Arthrocentesison Wojciech Treviño DO 11/28/2024 3:29 PM $ Arthrocentesis Date/Time: 11/28/2024 2:38 PM Performed by: Wojciech Treviño DO Authorized by: Wojciech Treviño DO Fire Risk Assessment Score Procedure site above the Xiphoid 0 Open O2 source (mask/cannula) 0 Ignition source (Cautery, Fiberoptic Light, Laser) 0 Total Fire Risk Assessment Score 0 Verbal consent obtained?: Yes Written consent obtained?: Yes Risks and benefits: Risks, benefits and alternatives were discussed Consent given by: Patient Patient states understanding of procedures being performed: Yes Patient's understanding of procedure matches consent: No Procedure consent matches procedure scheduled: No Relevant documents present and verified: Yes Test results available and properly labeled: Yes Site marked: Yes Imaging studies available: Yes Required items: Required blood products, implants, devices and special equipment available Patient identity confirmed: Verbally with patient Time out: Immediately prior to the procedure a time out was called Indications: Pain and osteoarthritis Body area: Knee Joint: Left knee Preparation: Patient was prepped and draped in usual sterile fashion Needle size: 25 G Ultrasound guidance: No Approach: Anterior Aspirate amount (ml): 0 Lidocaine HCL 1% amount (ml): 4 Kenalog amount (mg/ml): 40 Patient tolerance: Patient tolerated the procedure well with no immediate complications Procedure was completed Vital signs stable during the procedure Complications: none Interventions: none Post Anesthesia Evaluation (excludes pre-procedural restrictions and appropriate to age) post-procedure vital signs reviewed and stable MANUALLY TRANSCRIBED RESULTS [facility] 11-23-2024 CNPN Telephone (RHEUMN) JESUS WOLF ([id number]) 1955 F Date Time Provider Department 11/23/24 NADEGE MURPHY During your visit today, we recorded the following information about you: Anastasiya Jackman 11/23/2024 3:18 PM Signed [facility] on 11[facility]23[facility]24. Scanned for review. Jessenia Lopes RN 11/24/2024 5:31 AM Signed Scan on 11/23/2024 9:53 AM by Provider, ISELA Domínguez: Consultation - Ophthalmology Jessenia Lopes RN Allergies As of Date: 11/23/2024 Noted Allergy Reaction DOFETILIDE 03/15/2020 14 - [...] spot in area of shot Date Reviewed: 11/16/2024 Reviewed by: Rosario Carmichael OCCA - Fully Assessed Reason for Visit: Received Outside Medical Records [[id number]] Prescriptions as of 04/07/2025 - apixaban (ELIQUIS) 5 mg tab(s) Take 1 tablet by mouth two times a day. Patient should start on April 05, 2025. - levothyroxine (SYNTHROID) 50 mcg tablet Take 50 mcg by mouth every morning. - metoprolol succinate ER (TOPROL XL) 200 mg 24 hr tablet Take 200 mg by mouth once daily. - furosemide (LASIX) 20 mg tablet Take 20 mg by mouth once daily. - oxyCODONE-acetaminophe n (PERCOCET) 5-325 mg tablet Take 1 tablet by mouth every 6 hours as needed for up to 10 days. - docusate sodium (COLACE) 100 mg capsule Take 1 capsule by mouth two times a day. - cephALEXin (KEFLEX) 500 mg capsule Take 1 capsule by mouth four times daily for 7 days. - alendronate (FOSAMAX) 70 mg tablet Take 1 tablet by mouth one time a week. In the morning with a full glass of water, on an empty stomach. Do not take anything else by mouth or lie down for the next 30 minutes. - mupirocin (BACTROBAN) 2 % ointment Apply to affected area three times a day. - Mesalamine (LIALDA) 1.2 gram EC tablet Take 4 tablets by mouth once daily. - hydrOXYchloroQUINE (PLAQUENIL) 200 mg tablet take 1 tablet by mouth twice a day with food - ferrous sulfate (IRON) 325 mg (65 mg iron) tablet Take 1 tablet by mouth once daily. - colestipol (COLESTID) 1 gram tablet TAKE 3 TABLETS BY MOUTH TWICE DAILY - pantoprazole DR (PROTONIX) 40 mg tablet Take 1 tablet by mouth twice daily - amiodarone (PACERONE) 200 mg tablet Take 300 mg by mouth once daily. Patient reports 300 mg by mouth daily - cgidtor-ovzonplvx-jwhh min D3 500 mg-5 mcg (200 unit) per tablet Take 1 tablet by mouth three times daily. - MV with Tru-Iuxbdpdm-Lozlxe (CENTRUM SILVER) 0.4 mg-300 mcg- 250 mcg [...] 1 capsule by mouth once daily. - busPIRone (BUSPAR) 10 mg tablet Take 10 mg by mouth two times a day. - Cholecalciferol, Vitamin D3, 2,000 unit cap Take by mouth once daily. - vitamin b complex(B COMPLEX TAB) one daily - multivitamins w-minerals/lut(CENTRUM SILVER TAB) Take one(1) tablet daily. Problem List As Of Date 11/23/2024 Noted Resolved Edema [R60.9] 02/22/2010 Proteinuria [R80.9] [...] pain, left [M79.672] 08/07/2015 Osteoarthrosis, localized, secondary, (more content not included)... Normal [facility] C3 COMPLEMENTon 11-16-2024 Complement C3 [Mass/Vol] 165 mg/dL 86 - 166 mg/dL [facility] C3 SerPl-mCncon 11-16-2024 Complement C3 [Mass/Vol] 165 mg/dL Normal 86-166 [facility] Comment on above: Order Comment: Speci men Type: BLOOD SPECIMENOrdering Facility: [facility] Address: [address] [place] [address] Performed By: #### 2 4323-8, 5415-9, 4498-2 ####[facility] LABIA [id number] [place] [address] [place] C4 COMPLEMENTon 11-16-2024 Complement C4 [Mass/Vol] 31 mg/dL 13 - 46 mg/dL [facility] C4 SerPl-mCncon 11-16-2024 Complement C4 [Mass/Vol] 31 mg/dL Normal 13-46 [facility] Comment on above: Order Comment: Isadorai yung Type: BLOOD SPECIMENOrdering Facility: [facility] Address: [address] [place] [address] Performed By: #### 2 4323-8, 5625-9, 4498-2 ####[facility] LABCLIA [id number] [place] [address] [place] CBC W Auto Differential pane l (Bld)on 11-16-2024 Basophils (Bld) [#/Vol] 0.05 10*3/uL Normal <0.11 [facility] Comment on above: Order Comment: Isadorai men Type: BLOOD SPECIMENOrdering Facility: [facility] Address: [address] [place] [address] Performed By: #### 5 7021-8 ####[facility] LABCLIA [id number] [facility] [address] [place] [address] [place] Basophils/100 WBC (Bld) 0.7 % Normal [facility] Comment on above: Order Comment: Speci men Type: BLOOD SPECIMENOrdering Facility: [facility] Address: [address] [place] [address] Performed By: #### 5 7021-8 ####[facility] LABCLIA [id number] [address], [place] [address] [place] Differential cell count method Nom (Bld) Auto Normal [facility] Comment on above: Order Comment: Speci men Type: BLOOD SPECIMENOrdering Facility: [facility] Address: [address] [place] [address] Performed By: #### 5 7021-8 ####[facility] LABCLIA [id number] [address], [place] [address] [place] Eosinophils (Bld) [#/Vol] 0.22 10*3/uL Normal <0.46 [facility] Comment on above: Order Comment: Speci men Type: BLOOD SPECIMENOrdering Facility: [facility] Address: [address] [place] [address] Performed By: #### 5 7021-8 ####[facility] LABCLIA [id number] [address], [address] [place] Eosinophils/100 WBC (Bld) 3.0 % Normal [facility] Comment on above: Order Comment: Speci men Type: BLOOD SPECIMENOrdering Facility: [facility] Address: [address] [place] [address] Performed By: #### 5 7021-8 ####[facility] LABCLIA [id number] [address], [facility] [place] Erythrocyte distribution width (RBC) [Ratio] 13.5 % Normal 11.5-15.0 [facility] Comment on above: Order Comment: Speci men Type: BLOOD SPECIMENOrdering Facility: [facility] Address: [address] [place] [address] Performed By: #### 5 7021-8 ####[facility] LABCLIA [id number] [place] [address] [place] Hematocrit (Bld) [Volume fraction] 46.3 % High 36.0-46.0 [facility] Comment on above: Order Comment: Speci men Type: BLOOD SPECIMENOrdering Facility: [facility] Address: [address] [place] [address] Performed By: #### 5 7021-8 ####[facility] LABIA [id number] [place] [address] [place] Hemoglobin (Bld) [Mass/Vol] 15.0 g/dL Normal 11.5-15.5 [facility] Comment on above: Order Comment: Speci men Type: BLOOD SPECIMENOrdering Facility: [facility] Address: [address] [place] [address] Performed By: #### 5 7021-8 ####[facility] LABCLIA [id number] [place] [address] [place] Immature granulocytes (Bld) [#/Vol] 10*3/uL Normal <0.10 [facility] Comment on above: Order Comment: Speci men Type: BLOOD SPECIMENOrdering Facility: [facility] Address: [address] [place] [address] Performed By: #### 5 7021-8 ####[facility] LABCLIA [id number] [place] [address] [place] Immature granulocytes/100 WBC (Bld) 0.3 % Normal [facility] Comment on above: Order Comment: Speci men Type: BLOOD SPECIMENOrdering Facility: [facility] Address: [address] [place] [address] Performed By: #### 5 7021-8 ####[facility] LABCLIA [id number] [place] [address] [place] Lymphocytes (Bld) [#/Vol] 1.46 10*3/uL Normal 1.00-4.00 [facility] Comment on above: Order Comment: Speci men Type: BLOOD SPECIMENOrdering Facility: [facility] Address: [address] [place] [address] Performed By: #### 5 7021-8 ####[facility] LABIA [id number] [place] [address] [place] Lymphocytes/100 WBC (Bld) 20.2 % Normal [facility] Comment on above: Order Comment: Speci men Type: BLOOD SPECIMENOrdering Facility: [facility] Address: [address] [place] [address] Performed By: #### 5 7021-8 ####[facility] [id number] [place] [address] [place] MCH (RBC) [Entitic mass] 31.4 pg Normal 26.0-34.0 [facility] Comment on above: Order Comment: Speci men Type: BLOOD SPECIMENOrdering Facility: [facility] Address: [address] [place] [address] Performed By: #### 5 7021-8 ####[facility] LABIA [id number] [place] [address] [place] MCHC (RBC) [Mass/Vol] 32.4 g/dL Normal 30.5-36.0 [facility] Comment on above: Order Comment: Speci men Type: BLOOD SPECIMENOrdering Facility: [facility] Address: [address] [place] [address] Performed By: #### 5 7021-8 ####[facility] LABIA [id number] [place] [address] [place] MCV (RBC) [Entitic vol] 97.1 fL Normal 80.0-100.0 [facility] Comment on above: Order Comment: Speci men Type: BLOOD SPECIMENOrdering Facility: [facility] Address: [address] [place] [address] Performed By: #### 5 7021-8 ####[facility] LABCLIA [id number] [place] [id number] [place] Monocytes (Bld) [#/Vol] 0.84 10*3/uL Normal <0.87 [facility] Comment on above: Order Comment: Speci men Type: BLOOD SPECIMENOrdering Facility: [facility] Address: [address] [place] [address] Performed By: #### 5 7021-8 ####[facility] LABCLIA [id number] [place] [address] [place] Monocytes/100 WBC (Bld) 11.6 % Normal [facility] Comment on above: Order Comment: Speci men Type: BLOOD SPECIMENOrdering Facility: [facility] Address: [address] [place] [address] Performed By: #### 5 7021-8 ####[facility] LABCLIA [id number] [place] [address] [place] Neutrophils (Bld) [#/Vol] 4.65 10*3/uL Normal 1.45-7.50 [facility] Comment on above: Order Comment: Speci men Type: BLOOD SPECIMENOrdering Facility: [facility] Address: [address] [place] [address] Performed By: #### 5 7021-8 ####[facility] LABCLIA [id number] [place] [address] [place] Neutrophils/100 WBC (Bld) 64.2 % Normal [facility] Comment on above: Order Comment: Speci men Type: BLOOD SPECIMENOrdering Facility: [facility] Address: [address] [place] [address] Performed By: #### 5 7021-8 ####[facility] LABCLIA [id number] [address] [place] [address] [place] Nucleated RBC (Bld) [#/Vol] 10*3/uL Normal <0.01 [facility] Comment on above: Order Comment: Speci men Type: BLOOD SPECIMENOrdering Facility: [facility] Address: [address] [place] [address] Performed By: #### 5 7021-8 ####[facility] LABCLIA [id number] [address] [place] [address] [place] Nucleated RBC/100 WBC (Bld) [Ratio] 0.0 /100 WBC Normal [facility] Comment on above: Order Comment: Speci men Type: BLOOD SPECIMENOrdering Facility: [facility] Address: [address] [place] [address] Performed By: #### 5 7021-8 ####[facility] LABIA [id number] [address], [place] [address] [place] Platelet mean volume (Bld) [Entitic vol] 10.0 fL Normal 9.0-12.7 [facility] Comment on above: Order Comment: Speci men Type: BLOOD SPECIMENOrdering Facility: [facility] Address: [address] [place] [address] Performed By: #### 5 7021-8 ####[facility] LABIA [id number] [address], [facility] [place] Platelets (Bld) [#/Vol] 272 10*3/uL Normal 150-400 [facility] Comment on above: Order Comment: Speci men Type: BLOOD SPECIMENOrdering Facility: [facility] Address: [address] [place] [address] Performed By: #### 5 7021-8 ####[facility] LABCLIA [id number] [facility] [address] [place] [address] [place] RBC (Bld) [#/Vol] 4.77 10*6/uL Normal 3.90-5.20 [facility] Comment on above: Order Comment: Speci men Type: BLOOD SPECIMENOrdering Facility: [facility] Address: [address] [place] [address] Performed By: #### 5 7021-8 ####[facility] LABCLIA [id number] [place] [address] [place] WBC (Bld) [#/Vol] 7.24 10*3/uL Normal 3.70-11.00 [facility] Comment on above: Order Comment: Speci men Type: BLOOD SPECIMENOrdering Facility: [facility] Address: [address] [place] [address] Performed By: #### 5 7021-8 ####[facility] LABCLIA [id number] [address] [place] CNOVon 11-16-2024 CNOV Office Visit (RHEUMN ) JESUS WOLF ([id number]) 1955 F Date Time Provider Department 11/16/24 9:00 AM NADEGE MURPHY RHEUMN During your visit today, we recorded the following information about you: Temperature Pulse Blood pressure Weight 97.4 degrees 80/minute 136/64 118.4 kg Height 1.664 m Nadege Murphy DO 11/16/2024 10:02 AM Signed [facility] DEPARTMENT OF RHEUMATIC AND IMMUNOLOGIC DISEASES SUBJECTIVE: Reason for visit: SLE Brief History of Present Illness: Jesus Wolf is a 69 year old female with HTN, HLD, HFpEF, MONI not on CPAP, pAF s/p PVI 2x, hypothyroidism, primary hyperparathyroidism, ulcerative colitis, gallstone pancreatitis, IPMN, and osteopenia who is evaluated in the Rheumatology Clinic for [...] every 3 months. Also on Plaquenil and Cellcept 1g BID. August 2018 Cellcept was decreased to 1500 mg daily because of recurrent URI March 2020 admitted with CHF A. fib on Eliquis DX 1998 ulcerative colitis on mesalamine therapy Has pancreatitis and IPMN. Takes prednisone before Benlysta because of burning eye symptoms with Benlysta , no anaphylaxis Had GI evaluation and general surgery and thought the pancreatitis thought to be to gall bladder stone Had a hip replacement right hip in December 2020 Tapering Cellcept on 1 gram daily Does not use [...] Had morning stiffness which lasts 15-20 minutes. 01/2023 mycophenolate mofetil was stopped. 12/2023 she was able to tell when due for BEL every 3 months, has increased fatigue prior to her infusions with increased joint pain and worsening fatigue. She notably gets 60 mg IVMP with her infusions due to eye swelling that happened when she was first infused. At that time BEL was increased to every 2 month infusions. Today she feels well on this regimen. An tell when she is due for her infusions based on increased aches of hands and fatigue. Considering left knee replacement based on severe osteoarthritis on XR. She is still struggling with atrial fib, had a watchman procedure and takes amiodarone for rhythm control. Current Medications: HCQ 400 mg once daily Belimumab infusions every 2 months with 40 mg IVMP Answers submitted by the patient for this visit: Review of Systems Rheumatology (Submitted on 11/12/2024) Fever : No Eye pain: No Eye redness: No Vision Disturbance: No Eye Dryness: Yes Nosebleeds: No Sores in your mouth: No Trouble Swallowing: No Dry Mouth: No Chest pain: No Leg Swelling: No A cough: No Shortness of breath: Yes Pain with breathing: No Heartburn: No Abdominal pain: No Diarrhea: No Black tarry stools: No Blood in urine: No Pain or burning with urination: No Joint pain or stiffness: Yes Muscle weakness: Yes Muscle aches: Yes Joint swelling: Yes Morning Stiffness in Joints: Yes A rash: No Skin Color Changes: Yes Hair Loss: No Nail Changes: Yes Headaches: Yes Numbness: No Memory Loss: No Swollen Glands: No PMHx: PAST MEDICAL HISTORY Diagnosis Date Arrhythmia Atrial fibrillation (HCC) on coumadin Herniated intervertebral disk HTN (hypertension) Hyperlipemia Kidney disease MONI (obstructive sleep apnea (more content not included)... Normal [facility] Complement C3 [Mass/Vol]on 0 11-16-2024 Interpretation and review of laboratory results Normal [facility] Complement C4 [Mass/Vol]on 0 11-16-2024 Interpretation and review of laboratory results Normal [facility] Comprehensive metabolic 2000 panelon 11-16-2024 Albumin [Mass/Vol] 4.1 g/dL Normal 3.9-4.9 [facility] Comment on above: Order Comment: Speci men Type: BLOOD SPECIMENOrdering Facility: [facility] Address: [address] [place] [address] Performed By: #### 2 4323-8, 4485-9, 4498-2 ####[facility] LABCLIA [id number] [place] [address] [place] ALP [Catalytic activity/Vol] 115 U/L Normal 34-123 [facility] Comment on above: Order Comment: Speci men Type: BLOOD SPECIMENOrdering Facility: [facility] Address: [address] [place] [address] Performed By: #### 2 4323-8, 4485-9, 4498-2 ####[facility] LABIA [id number] [place] [address] [place] ALT [Catalytic activity/Vol] 45 U/L High 7-38 [facility] Comment on above: Order Comment: Speci men Type: BLOOD SPECIMENOrdering Facility: [facility] Address: [address] [place] [address] Performed By: #### 2 4323-8, 1865-9, 4498-2 ####[facility] LABIA [id number] [place] [address] [place] Anion gap [Moles/Vol] 11 mmol/L Normal 8-15 [facility] Comment on above: Order Comment: Speci men Type: BLOOD SPECIMENOrdering Facility: [facility] Address: [address] [place] [address] Performed By: #### 2 4323-8, 4485-9, 4498-2 ####[facility] LABIA [id number] [place] [id number] [place] AST [Catalytic activity/Vol] 41 U/L High 13-35 [facility] Comment on above: Order Comment: Speci men Type: BLOOD SPECIMENOrdering Facility: [facility] Address: [address] [place] [address] Performed By: #### 2 4323-8, 7425-9, 4498-2 ####[facility] LABCLIA [id number] [address] [address] [place] Bilirubin [Mass/Vol] 0.5 mg/dL Normal 0.2-1.3 [facility] Comment on above: Order Comment: Speci men Type: BLOOD SPECIMENOrdering Facility: [facility] Address: [address] [place] [address] Performed By: #### 2 4323-8, 448-9, 4498-2 ####[facility] LABCLIA [id number] [place] [id number] [place] Calcium [Mass/Vol] 9.6 mg/dL Normal 8.5-10.2 [facility] Comment on above: Order Comment: Speci men Type: BLOOD SPECIMENOrdering Facility: [facility] Address: [address] [place] [address] Performed By: #### 2 4323-8, 448-9, 4498-2 ####[facility] LABCLIA [id number] [place] [id number] [place] Chloride [Moles/Vol] 104 mmol/L Normal 98-107 [facility] Comment on above: Order Comment: Speci men Type: BLOOD SPECIMENOrdering Facility: [facility] Address: [address] [place] [address] Performed By: #### 2 4323-8, 448-9, 4498-2 ####[facility] LABCLIA [id number] [address] [address] [place] CO2 [Moles/Vol] 27 mmol/L Normal 22-30 [facility] Comment on above: Order Comment: Speci men Type: BLOOD SPECIMENOrdering Facility: [facility] Address: [address] [place] [address] Performed By: #### 2 4323-8, 4485-9, 4498-2 ####[facility] LABCLIA [id number] [place] [address] [place] Creatinine [Mass/Vol] 1.04 mg/dL High 0.58-0.96 [facility] Comment on above: Order Comment: Morena barragan Type: BLOOD SPECIMENOrdering Facility: [facility] Address: [address] [place] [address] Performed By: #### 2 4323-8, 4485-9, 4498-2 ####[facility] [id number] [place] [id number] [place] [facility] Creatinine and Glomerular filtration rate.predicted panel (S/P/Bld) 59 mL/min/1.73m??? Low >=60 [facility] Comment on above: Order Comment: Morena barragan Type: BLOOD SPECIMENOrdering Facility: [facility] Address: [address] [place] [address] Result Comment: Anna mated Glomerular Filtration Rate [...] reflect actual GFR. Performed By: #### 2 4323-8, 4485-9, 4498-2 ####[facility] [id number] [place] [id number] [place] Glucose [Mass/Vol] 86 mg/dL Normal 74-99 [facility] Comment on above: Order Comment: Morena barragan Type: BLOOD SPECIMENOrdering Facility: [facility] Address: [address] [place] [address] Result Comment: The [place] [employer] (ADA) provides guidance for cutoff [...] Standards of Medical Care in Diabetes 2016, [place] [employer]. Diabetes Care. 2016.39(Suppl 1). Performed By: #### 2 4323-8, 4485-9, 4498-2 ####[facility] LABCLIA [id number] [place] [address] [place] Potassium [Moles/Vol] 4.5 mmol/L Normal 3.7-5.1 [facility] Comment on above: Order Comment: Speci men Type: BLOOD SPECIMENOrdering Facility: [facility] Address: [address] [place] [address] Performed By: #### 2 432-8, 4485-04, 449-2 ####[facility] LABCLIA [id number] [place] [address] [place] Protein [Mass/Vol] 6.4 g/dL Normal 6.3-8.0 [facility] Comment on above: Order Comment: Morena barragan Type: BLOOD SPECIMENOrdering Facility: [facility] Address: [address] [place] [address] Performed By: #### 2 4323-8, 4489, 449-2 ####[facility] LABCLIA [id number] [place] [address] [place] Sodium [Moles/Vol] 142 mmol/L Normal 136-144 [facility] Comment on above: Order Comment: Speci men Type: BLOOD SPECIMENOrdering Facility: [facility] Address: [address] [place] [address] Performed By: #### 2 4323-8, 4489, 4498-2 ####[facility] LABCLIA [id number] [address] [address] [place] Urea nitrogen [Mass/Vol] 15 mg/dL Normal 7-21 [facility] Comment on above: Order Comment: Speci men Type: BLOOD SPECIMENOrdering Facility: [facility] Address: [address] [place] [address] Performed By: #### 2 4323-8, 4485-9, 4498-2 ####[facility] LABCLIA [id number] [place] [address] [place] DNA ANTIBODY DS BLDon 2024 DNA ANTIBODY 4 IU/mL Normal <=200 [facility] Comment on above: Order Comment: Speci men Type: BLOOD SPECIMENOrdering Facility: [facility] Address: [address] [place] [address] Result Comment: Nega tive: <200 IU/mL Equivocal: 201-300 IU/mL Moderate Positive: 301-800 IU/mL Strong Positive: >801 IU/mL Performed By: #### D NAAB ####[facility] LABCLIA [id number] [address] [place] DNA ANTIBODY QUALITATIVE INTERPRETATION Negative Normal Negative [facility] Comment on above: Order Comment: Speci men Type: BLOOD SPECIMENOrdering Facility: [facility] Address: [address] [place] [address] Performed By: #### D NAAB ####[facility] LABCLIA [id number] [place] [address] [place] Prot/Creat Uron 11-16-2024 Protein/Creatinine (U) [Mass ratio] 0.14 mg/mg Normal <0.15 [facility] Comment on above: Order Comment: Speci men Type: URINE SPECIMENOrdering Facility: [facility] Address: [address] [place] [address] Result Comment: Adul t Proteinuria Categories: <0.15 mg/mg is considered normal to mildly increased 0.15 - 0.50 mg/mg is considered moderately increased >0.50 mg/mg is considered severely increased KDIGO. (2013). KDIGO 2012 Clinical Practice Guideline for the Evaluation and Management of Chronic Kidney Disease. Official Journal of the International Society of Nephrology, 3(1), 1-150. Performed By: #### 2 890-2 ####[facility] LABCLIA [id number] [address] [place] [address] [place] Protein/Creatinine (U) [Mass ratio]on 11-16-2024 Creatinine (U) [Mass/Vol] 107.4 mg/dL Normal 20.0-300.0 [facility] Comment on above: Order Comment: Speci men Type: URINE SPECIMENOrdering Facility: [facility] Address: [address] [place] [address] Performed By: #### 2 890-2 ####[facility] LABCLIA [id number] [address] [place] [address] [place] Protein (U) [Mass/Vol] 15 mg/dL Normal 0-20 [facility] Comment on above: Order Comment: Speci men Type: URINE SPECIMENOrdering Facility: [facility] Address: [address] [place] [address] Performed By: #### 2 890-2 ####[facility] LABIA [id number] [address] [place] [address] [place] Urinalysis complete panel (U )on 11-16-2024 BACTERIA UL >9821 High Negative [facility] Comment on above: Order Comment: Speci men Type: URINE SPECIMENOrdering Facility: [facility] Address: [address] [place] [address] Performed By: #### 2 4356-8 ####[facility] LABIA [id number] [address] [place] [address] [place] Bilirubin Ql (U) Negative Normal Negative [facility] Comment on above: Order Comment: Speci men Type: URINE SPECIMENOrdering Facility: [facility] Address: [address] [place] [id number] Performed By: #### 2 4356-8 ####[facility] LABCLIA [id number] [address] [place] [address] [place] Clarity (Unsp spec) Clear Normal Clear [facility] Comment on above: Order Comment: Speci men Type: URINE SPECIMENOrdering Facility: [facility] Address: [address] [place] [address] Performed By: #### 2 4356-8 ####[facility] LABCLIA [id number] [address], [facility] [place] Color (U) Yellow Normal Yellow [facility] Comment on above: Order Comment: Speci men Type: URINE SPECIMENOrdering Facility: [facility] Address: [address] [place] [address] Performed By: #### 2 4356-8 ####[facility] LABCLIA [id number] [place] [id number] [place] Epithelial cells LM.HPF (Urine sed) [#/Area] Few Normal [facility] Comment on above: Order Comment: Speci men Type: URINE SPECIMENOrdering Facility: [facility] Address: [address] [place] [address] Performed By: #### 2 4356-8 ####[facility]CL[facility] [id number] [address] [address] [place] Glucose Test strip (U) [Mass/Vol] Negative Normal Negative [facility] Comment on above: Order Comment: Speci men Type: URINE SPECIMENOrdering Facility: [facility] Address: [address] [place] [address] Performed By: #### 2 4356-8 ####[facility] LABCLIA [id number] [place] [id number] [place] Hemoglobin Ql (U) Negative Normal Negative [facility] Comment on above: Order Comment: Speci men Type: URINE SPECIMENOrdering Facility: [facility] Address: [address] [place] [address] Performed By: #### 2 4356-8 ####[facility] LABCLIA [id number] [address], [facility] [place] Hyaline casts (Urine sed) [#/Area] 1-3 /LPF Abnormal 0 /LPF [facility] Comment on above: Order Comment: Speci men Type: URINE SPECIMENOrdering Facility: [facility] Address: [address] [place] [address] Performed By: #### 2 4356-8 ####[facility] LABCLIA [id number] [address], [place] [address] [place] Ketones Ql (U) Negative Normal Negative [facility] Comment on above: Order Comment: Speci men Type: URINE SPECIMENOrdering Facility: [facility] Address: [address] [place] [address] Performed By: #### 2 4356-8 ####[facility] LABCLIA [id number] [address], [place] [address] [place] Leukocyte esterase Test strip Ql (U) 1+ Abnormal Negative [facility] Comment on above: Order Comment: Speci men Type: URINE SPECIMENOrdering Facility: [facility] Address: [address] [place] [address] Performed By: #### 2 4356-8 ####[facility] LABCLIA [id number] [place] [id number] [place] Nitrite Ql (U) Positive Abnormal Negative [facility] Comment on above: Order Comment: Speci men Type: URINE SPECIMENOrdering Facility: [facility] Address: [address] [place] [address] Performed By: #### 2 4356-8 ####[facility] LABCLIA [id number] [address], [facility] [place] pH (U) 5.5 [pH] Normal <8.5 [facility] Comment on above: Order Comment: Speci men Type: URINE SPECIMENOrdering Facility: [facility] Address: [address] [place] [address] Performed By: #### 2 4356-8 ####[facility] LABCLIA [id number] [place] [address] [place] Protein (U) [Mass/Vol] Negative Normal Negative Cl [facility] Comment on above: Order Comment: Speci men Type: URINE SPECIMENOrdering Facility: [facility] Address: [address] [place] [address] Performed By: #### 2 4356-8 ####[facility] LABIA [id number] [place] [address] [place] RBC LM.HPF (Urine sed) [#/Area] 0-2 /HPF Normal 0-2 /HPF [facility] Comment on above: Order Comment: Speci men Type: URINE SPECIMENOrdering Facility: [facility] Address: [address] [place] [address] Performed By: #### 2 4356-8 ####[facility] LABIA [id number] [place] [address] [place] Specific gravity (U) [Rel density] 1.016 Normal 1.005-1.030 [facility] Comment on above: Order Comment: Speci men Type: URINE SPECIMENOrdering Facility: [facility] Address: [address] [place] [address] Performed By: #### 2 4356-8 ####[facility] LABIA [id number] [place] [id number] [place] Urobilinogen Ql (U) 0.2 EU/dL Normal 0.2-1.0 EU/dL [facility] Comment on above: Order Comment: Speci men Type: URINE SPECIMENOrdering Facility: [facility] Address: [address] [place] [address] Performed By: #### 2 4356-8 ####[facility] LABCLIA [id number] [place] [id number] [place] WBC LM.HPF (Urine sed) [#/Area] 0-5 /HPF Normal 0-5 /HPF [facility] Comment on above: Order Comment: Speci men Type: URINE SPECIMENOrdering Facility: [facility] Address: [address] [place] [address] Performed By: #### 2 4356-8 ####[facility] [id number] [place] [id number] [place] CNOVon 11-15-2024 [facility] JESUS WOLF ([id number]) 1955 F Date Time Provider Department 11/15/24 9:20 AM RADU SALAZAR During your visit today, we recorded the following information about you: Pulse Blood pressure Weight 81/minute 138/81 117.6 kg Radu Salazar MD 11/15/2024 11:18 AM Signed [facility] NEPHROLOGY AND HYPERTENSION [facility] SERVICE DATE: November 15, 2024 SERVICE TIME: 9:22 AM CHIEF COMPLAINT: Follow up of LN HPI: HTN, HLD, HFpEF, MONI not on CPAP, pAF, hypothyroidism, primary hyperparathyroidism, ulcerative colitis, gallstone pancreatitis, IPMN, osteopenia, SLE and 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 PAST MEDICAL HISTORY: PAST MEDICAL HISTORY Diagnosis Date Arrhythmia Atrial fibrillation (HCC) on coumadin Herniated intervertebral disk HTN (hypertension) Hyperlipemia Kidney disease MONI (obstructive sleep apnea) no longer using CPAP since 60 lb weight loss Other acute pancreatitis with uninfected necrosis (HCC) SLE (systemic lupus erythematosus) (HCC) Sleep apnea 07/29/2012 MEDICATIONS: As reviewed with patient, and recalled by patient pantoprazole DR (PROTONIX) 40 mg tablet Take 1 tablet by mouth twice daily Mesalamine (LIALDA) 1.2 gram EC tablet TAKE 4 TABLETS BY MOUTH ONCE DAILY alendronate (FOSAMAX) 70 mg tablet Take 1 tablet by mouth one time a week. In the morning with a full glass of water, on an empty stomach. Do not take anything else by mouth or lie down for the next 30 minutes. hydrOXYchloroQUINE (PLAQUENIL) 200 mg tablet take 1 tablet by mouth twice a day with food colestipol (COLESTID) 1 gram tablet Take 3 tablets by mouth two times a day. ferrous sulfate (IRON) 325 mg (65 mg iron) tablet Take 1 tablet by mouth once daily. amiodarone (PACERONE) 200 mg tablet Take 1 tablet by mouth every 12 hours. metoprolol succinate ER (TOPROL XL) 50 mg 24 hr tablet TAKE 1 TABLET BY MOUTH IN THE MORNING AND 2 TABLETS BY MOUTH IN THE EVENING ELIQUIS 5 mg tab(s) Take 5 mg by mouth twice daily. acetaminophen (TYLENOL) 500 mg tablet Take 1 tablet by mouth every 4 hours as needed for pain. vkedkso-xfyohbxaz-prwv min D3 500 mg-5 mcg (200 unit) per tablet Take 1 tablet by mouth three times daily. MV with Cgc-Fvspdvjt-Mrfcak (CENTRUM SILVER) 0.4 mg-300 mcg- 250 mcg [...] mg tablet Take 10 mg by mouth two times a day. Cholecalciferol, Vitamin D3, 2,000 unit cap Take by mouth once daily. vitamin b complex(B COMPLEX TAB) one daily multivitamins w-minerals/lut(CENTRUM SILVER TAB) Take one(1) tablet daily. ALLERGIES: ALLERGIES Allergen Reactions Dofetilide Other: See [...] Comments red spot in area of shot REVIEW OF SYSTEMS: General/ Constitutional: No complaints, No fever, No chills, No weight loss, No fatigue, No night sweats, No malaise and No weakness Cardiovasc (more content not included)... Normal [facility] CNOVon 09-30-2024 CNOV Office Visit ([facility] ) JESUS WOLF ([id number]) 1955 F Date Time Provider Department 09/30/24 9:45 AM DIONE FRANCES During your visit today, we recorded the following information about you: Dione Frances MD 09/30/2024 9:50 AM Addendum Continue mesalamine Continue colestipol 5 pill daily Continue Protonix twice daily Colonoscopy 2025 Dione Frances MD 09/30/2024 12:34 PM Signed FOLLOW UP OFFICE VISIT REASON FOR VISIT: Follow-up UC HPI: Jesus Wolf is a 69 year old female who presents for follow-up UC. She overall has been doing well. She has had some cardiac issues and recently had a Watchman device placed. Her bowel movements are otherwise under good control with colestipol and lialda. She denies any melena, hematochezia or rectal bleeding. Past Clinical Work-Up: Last office visit 12/22/2023: ASSESSMENT AND PLAN: 68-year-old female with past [...] flag or alarm symptoms at this time. 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 Latest Ref Rng 03/15/2024 03/18/2024 05/20/2024 06/13/2024 WBC 3.70 - 11.00 k/uL 8.85 RBC 3.90 - 5.20 m/uL 4.34 Hemoglobin 11.5 - 15.5 g/dL 13.8 Hematocrit 36.0 - 46.0 % 41.2 MCV 80.0 - 100.0 fL 94.9 MCH 26.0 - 34.0 pg 31.8 MCHC 30.5 - 36.0 g/dL 33.5 RDW-CV 11.5 - 15.0 % 12.9 Platelet Count 150 - 400 k/uL 271 MPV 9.0 - 12.7 fL 9.9 Neut% % 86.7 Abs Neut (ANC) 1.45 - 7.50 k/uL 7.67 (H) Lymph% % 7.7 Abs Lymph 1.00 - 4.00 k/uL 0.68 (L) Medina% % 3.8 Abs Medina <0.87 k/uL 0.34 Eosin% % 1.0 Abs Eosin <0.46 k/uL 0.09 Baso% % 0.5 Abs Baso <0.11 k/uL 0.04 Immature Gran % % 0.3 IMMATURE GRANS (ABS) <0.10 k/uL 0.03 NRBC /100 WBC 0.0 Absolute nRBC <0.01 k/uL <0.01 DTYPE Auto Protein, Total 6.3 - 8.0 g/dL 6.9 6.1 (L) Albumin 3.9 - 4.9 g/dL 4.4 4.0 Calcium 8.5 - 10.2 mg/dL 9.3 9.8 8.9 Bilirubin, Total 0.2 - 1.3 mg/dL 0.5 0.4 Alkaline Phosphatase 34 - 123 U/L 135 (H) 108 AST 13 - 35 U/L 29 27 ALT 7 - 38 U/L 29 26 Glucose 74 - 99 mg/dL 89 113 (H) 98 BUN 7 - 21 mg/dL 18 34 (H) 20 Creatinine 0.58 - 0.96 mg/dL 1.14 (H) 1.35 (H) 1.04 (H) Sodium 136 - 144 mmol/L 143 140 143 Potassium 3.7 - 5.1 mmol/L 4.5 5.0 4.1 Chloride 98 - 107 mmol/L 105 105 105 CO2 22 - 30 mmol/L 27 25 25 Anion Gap 8 - 15 mmol/L 11 10 13 eGFR >=60 mL/min/1.73m? 53 (L) 43 (L) 59 (L) (more content not included)... Normal [facility] HISTORY PHYSICALon HISTORY PHYSICAL HNO ID: [id number] Author: DIONE FRANCES MD Service: ? Author Type: Physician Type: H&P Filed: 09/30/2024 12:34 Note Text: FOLLOW UP OFFICE VISIT REASON FOR VISIT: Follow-up UC HPI: Jesus Wolf is a 69 year old female who presents for follow-up UC. She overall has been doing well. She has had some cardiac issues and recently had a Watchman device placed. Her bowel movements are otherwise under good control with colestipol and lialda. She denies any melena, hematochezia or rectal bleeding. Past Clinical Work-Up: Last office visit 12/22/2023: ASSESSMENT AND PLAN: 68-year-old female with past [...] flag or alarm symptoms at this time. 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 Latest Ref Rng 03/15/2024 03/18/2024 05/20/2024 06/13/2024 WBC 3.70 - 11.00 k/uL 8.85 RBC 3.90 - 5.20 m/uL 4.34 Hemoglobin 11.5 - 15.5 g/dL 13.8 Hematocrit 36.0 - 46.0 % 41.2 MCV 80.0 - 100.0 fL 94.9 MCH 26.0 - 34.0 pg 31.8 MCHC 30.5 - 36.0 g/dL 33.5 RDW-CV 11.5 - 15.0 % 12.9 Platelet Count 150 - 400 k/uL 271 MPV 9.0 - 12.7 fL 9.9 Neut% % 86.7 Abs Neut (ANC) 1.45 - 7.50 k/uL 7.67 (H) Lymph% % 7.7 Abs Lymph 1.00 - 4.00 k/uL 0.68 (L) Medina% % 3.8 Abs Medina <0.87 k/uL 0.34 Eosin% % 1.0 Abs Eosin <0.46 k/uL 0.09 Baso% % 0.5 Abs Baso <0.11 k/uL 0.04 Immature Gran % % 0.3 IMMATURE GRANS (ABS) <0.10 k/uL 0.03 NRBC /100 WBC 0.0 Absolute nRBC <0.01 k/uL <0.01 DTYPE Auto Protein, Total 6.3 - 8.0 g/dL 6.9 6.1 (L) Albumin 3.9 - 4.9 g/dL 4.4 4.0 Calcium 8.5 - 10.2 mg/dL 9.3 9.8 8.9 Bilirubin, Total 0.2 - 1.3 mg/dL 0.5 0.4 Alkaline Phosphatase 34 - 123 U/L 135 (H) 108 AST 13 - 35 U/L 29 27 ALT 7 - 38 U/L 29 26 Glucose 74 - 99 mg/dL 89 113 (H) 98 BUN 7 - 21 mg/dL 18 34 (H) 20 Creatinine 0.58 - 0.96 mg/dL 1.14 (H) 1.35 (H) 1.04 (H) Sodium 136 - 144 mmol/L 143 140 143 Potassium 3.7 - 5.1 mmol/L 4.5 5.0 4.1 Chloride 98 - 107 mmol/L 105 105 105 CO2 22 - 30 mmol/L 27 25 25 Anion Gap 8 - 15 mmol/L 11 10 13 eGFR >=60 mL/min/1.73m? 53 (L) 43 (L) 59 (L) CRP <0.9 mg/dL 0.3 WSR 0 - 20 mm/hr 8 ALLERGIES Allergen Reactions Dofetilide Other: See Comments, Anaphylaxis V-tach Iodinated Contrast * Other: See Comments (Deep seafood) hot flashes, sweating. Other reaction(s): over heated/nausea Sulfa (Sulfonamide * Vomiting total body swelling and kidney shut down, body aches and rash Contras (more content not included)... Normal [facility] Arterial blood standard base excess determination by calculationOrdered By: Yuriy Conway on 09-19-2024 Base excess standard Calc (BldA) [Moles/Vol] Arterial blood standard base excess determination by calculation -3 [facility] Basic Metabolic Panelon Anion gap [Moles/Vol] 19.7 mmol/L High 6.0-15.0 [facility] Comment on above: Performed By: #### B MP #### [address] Calcium [Mass/Vol] 6.1 mg/dL Off scale low 8.6-10.3 [facility] Comment on above: Result Comment: Crit ical Result Called to and read back by: SUSAN PRATT at: 09/19/2024 09:27:53 by:[id number] PERFORMED BY: [place] [address] PATHOLOGIST BLOCKLAYER ZHAO WORRELL M.D. Performed By: #### B MP #### [address] Chloride [Moles/Vol] 107 mmol/L Normal 98-107 [facility] Comment on above: Performed By: #### B MP #### [address] CO2 [Moles/Vol] 9.4 mmol/L Low 21.0-31.0 [facility] Comment on above: Performed By: #### B MP #### [address] Creatinine [Mass/Vol] mg/dL Low 0.60-1.20 [facility] Comment on above: Result Comment: When the Creatinine is <0.20, the GFR is unable to be calculated. Performed By: #### B MP #### [address] Glucose [Mass/Vol] 28 mg/dL Off scale low 70-100 [facility] Comment on above: Result Comment: Crit ical Result Called to and read back by: SUSAN PRATT at: 09/19/2024 09:27:53 by:[id number] Random Glucose Reference Range is dependent on time and content of last meal. Glucose of more than 200 mg/dL in a nonstressed, ambulatory subject supports the diagnosis of Diabetes Mellitus. ADA recommended reference range Performed By: #### B MP #### [address] Potassium [Moles/Vol] 4.1 mmol/L Normal 3.5-5.1 [facility] Comment on above: Performed By: #### B MP #### [place] [address] [place] Sodium [Moles/Vol] 132 mmol/L Low 136-145 [facility] Comment on above: Performed By: #### B MP #### [address] Urea nitrogen [Mass/Vol] 12 mg/dL Normal 7-25 [facility] Comment on above: Performed By: #### B MP #### [place] [id number] [facility] Basophils Auto (Bld) [#/Vol] Ordered By: Tobin Alvarez on 09-19-2024 Basophils (Bld) [#/Vol] Automated basoph il count 0.0-0.2 [facility] Basophils/100 WBC Auto (Bld) Ordered By: Tobin Alvarez on 09-19-2024 Basophils/100 WBC (Bld) Automated basophil % . [facility] Blood carbon dioxide, total measurement by calculation (moles/volume)Ordered By: Yuriy Conway on 09-19-2024 CO2 Calc (Bld) [Moles/Vol] Blood carbon dioxide, total measurement by calculation (moles/volume) 23-29 [facility] Calcium [Mass/volume] in Ser um or PlasmaOrdered By: Tobin Alvarez on 09-19-2024 Calcium [Mass/Vol] Calcium [Mass/volume ] in Serum or Plasma Critically low 8.6-10.3 [facility] Comment on above: Critical Result Call ed to and read back by: SUSAN PRATT at: 09/19/2024 09:27:53 by:[id number] Carbon dioxide WBOrdered By: Yuriy Conway on 09-19-2024 Basophil percentage Basophil percentage Low 80-105 [facility] Carbon dioxide, total [Moles /volume] in Serum or PlasmaOrdered By: Tobin Alvarez on 09-19-2024 CO2 [Moles/Vol] Carbon dioxide, tota l [Moles/volume] in Serum or Plasma Low 21.0-31.0 [facility] Chloride [Moles/volume] in S dm or PlasmaOrdered By: Tobin Alvarez on 09-19-2024 Chloride [Moles/Vol] Chloride [Moles/volume] in Serum or Plasma 98-107 [facility] Complete Blood Count Auto Di ffon 09-19-2024 Basophils (Bld) [#/Vol] 0.0 10*3/uL Normal 0.0-0.2 [facility] Comment on above: Order Comment: REDRA W Result Comment: PERF ORMED BY: [place] [id number] PATHOLOGIST BLOCKLAYER ZHAO WORRELL M.D. Performed By: #### C BC ####[place] [id number] [facility] Basophils/100 WBC (Bld) 0.4 % Normal . [facility] Comment on above: Order Comment: REDRA W Performed By: #### C BC ####[address] Eosinophils (Bld) [#/Vol] 0.2 10*3/uL Normal 0.0-0.45 [facility] Comment on above: Order Comment: REDRA W Performed By: #### C BC ####[address] Eosinophils/100 WBC (Bld) 2.1 % Normal . [facility] Comment on above: Order Comment: REDRA W Performed By: #### C BC ####[address] Erythrocyte distribution width (RBC) [Ratio] 15.1 % Normal 11.9-15.3 [facility] Comment on above: Order Comment: REDRA W Performed By: #### C BC ####[address] Hematocrit (Bld) [Volume fraction] 41.7 % Normal 34.0-46.4 [facility] Comment on above: Order Comment: REDRA W Performed By: #### C BC ####[address] Hemoglobin (Bld) [Mass/Vol] 13.9 g/dL Normal 11.8-15.4 [facility] Comment on above: Order Comment: REDRA W Performed By: #### C BC ####[address] Lymphocytes (Bld) [#/Vol] 1.2 10*3/uL Normal 1.00-4.8 [facility] Comment on above: Order Comment: REDRA W Performed By: #### C BC ####[place] [id number] [facility] Lymphocytes/100 WBC (Bld) 14.0 % Normal . [facility] Comment on above: Order Comment: REDRA W Performed By: #### C BC ####[address] MCH (RBC) [Entitic mass] 31.7 pg Normal 24.7-34.3 [facility] Comment on above: Order Comment: REDRA W Performed By: #### C BC ####[address] MCV (RBC) [Entitic vol] 94.7 fL Normal 80-100 [facility] Comment on above: Order Comment: REDRA W Performed By: #### C BC ####[address] Mean Corpuscular HGB Conc 33.5 g/dL Normal 32.0-35.0 [facility] Comment on above: Order Comment: REDRA W Performed By: #### C BC ####[address] Monocytes (Bld) [#/Vol] 1.0 10*3/uL High 0.0-0.8 [facility] Comment on above: Order Comment: REDRA W Performed By: #### C BC ####[address] Monocytes/100 WBC (Bld) 11.3 % Normal . [facility] Comment on above: Order Comment: REDRA W Performed By: #### C BC ####[address] Neutrophils (Bld) [#/Vol] 6.2 10*3/uL Normal 1.8-7.7 [facility] Comment on above: Order Comment: REDRA W Performed By: #### C BC ####[address] Neutrophils/100 WBC (Bld) 72.2 % Normal . [facility] Comment on above: Order Comment: REDRA W Performed By: #### C BC ####[place] [id number] [facility] NRBC% 0.2 /100{WBC} Normal 0-0.5 [facility] Comment on above: Order Comment: REDRA W Performed By: #### C BC ####[place] [id number] [facility] Platelet mean volume (Bld) [Entitic vol] 8.2 fL Normal 6.3-10.7 [facility] Comment on above: Order Comment: REDRA W Performed By: #### C BC ####[address] [address] [facility] Platelets (Bld) [#/Vol] 237 10*3/uL Normal 150-450 [facility] Comment on above: Order Comment: REDRA W Performed By: #### C BC ####[place] [id number] [facility] RBC (Bld) [#/Vol] 4.40 10*6/uL Normal 3.60-5.00 [facility] Comment on above: Order Comment: REDRA W Performed By: #### C BC ####[place] [id number] [facility] WBC (Bld) [#/Vol] 8.6 10*3/uL Normal 3.8-11.6 [facility] Comment on above: Order Comment: REDRA W Performed By: #### C BC ####[place] [id number] [facility] Creatinine [Mass/volume] in Serum or PlasmaOrdered By: Tobin Alvarez on 09-19-2024 Creatinine [Mass/Vol] Creatinine [Mass/volume] in Serum or Plasma Low 0.60-1.20 [facility] Comment on above: When the Creatinine is <0.20, the GFR is unable to be calculated. ECG 12 lead ECGon 09-19-2024 ECG 12 lead ECG [facility] [address] [place] [address] [place] [address] Electrocardiograph Report Signed Patient: Jesus Wolf MR#: [id number] : 1955 Acct:[id number] Age/Sex: 69 / F ADM Date: 09/19/24 Loc: [place] Room: Type: [facility] Attending Dr: Yuriy Conway MD Ordering Provider: Yuriy Conway MD, [facility] Date of Service: 09/19/2411/08/801 ECG/ECG 12 lead ECG: Pre-cardioversion rhythm assessment Copies to: Test Reason : Blood Pressure : */* mmHG Vent. Rate : 77 BPM Atrial Rate : 77 BPM P-R Int : 228 ms QRS Dur : 118 ms QT Int : 460 ms P-R-T Axes : 84 16 53 degrees QTcB Int : 520 ms Sinus rhythm with 1st degree AV block Nonspecific intraventricular conduction delay Minimal voltage criteria for LVH, may be normal variant ( [place] product ) Prolonged QT Abnormal ECG When compared with ECG of 26-Nov-2023 13:38, QT has become more prolong Confirmed by ALINE SOUZA MD ([facility]) on 09/19/2024 1:52:19 PM Referred By: Electronically Signed By: ALINE SOUZA MD Transcribed By: MUS Signed By Aline Souza MD 0 09/19/24 1352 Normal [facility] echo transesophageal PHYLLIS on 09-19-2024 [facility] echo transesophageal PHYLLIS [facility] [place] [address] Echocardiogram Signed Patient: Jesus Wolf MR#: [id number] : 1955 Acct:[id number] Age/Sex: 69 / F ADM Date: 09/19/24 Loc: [place] Room: Type: [facility] Attending Dr: Yuriy Conway MD Ordering Provider: Yuriy Conway MD, [facility] Date of Service: 09/19/24/ [facility] echo transesophageal PHYLLIS: Aortic Valve Stenosis. Copies to: Yuriy Conway MD, [facility] HR: 81 Reason For Study: S/P Watchman Device History: Watchman. CHF. Afib. Ablation. MONI. HTN. Morbid Obesity. Interpretation Summary PHYLLIS was done in the OR with anesthesia provided by anesthesia team Mild concentric left ventricular hypertrophy. Ejection Fraction = 55-60%. There is left ventricular diastolic dysfunction. The left atrium appears mildly dilated. Left atrial occlusive device is noted with excellent seal and no evidence by Doppler of any leaking segments The right ventricle is borderline dilated. Mild right ventricular systolic dysfunction. Mild aortic regurgitation. There is mild mitral regurgitation. There is mild tricuspid regurgitation. The right ventricular systolic pressure is 50 - 55 mmHg. Right ventricular systolic pressure is consistent with moderate pulmonary hypertension. Mild aortic root dilatation. The aortic root is 4.4 cm Procdure: A two-dimensional transesophageal echocardiogram with color flow and Doppler was performed. Informed consent for Transesophageal Echocardiogram was obtained prior to the procedure. PHYLLIS was done in the OR with anesthesia provided by anesthesia team. The transesophageal probe was passed without difficulty. Limited views were obtained. The patient's vital signs, including blood pressure, heart rate, pulse oximetry and cardiac rhythm were monitored throughout the procedure and remained stable. The patient tolerated the procedure well without evidence of orophangeal or esophageal trauma. Left Ventricle: Mild concentric left ventricular hypertrophy. Left ventricular systolic function is normal. Ejection Fraction = 55-60%. There is left ventricular diastolic dysfunction. Left Atrium: The left atrium appears mildly dilated. Left atrial occlusive device is noted with excellent seal and no evidence by Doppler of any leaking segments. The atrial septum appears normal. Right Atrium: The right atrium appears normal in size. Right Ventricle: The right ventricle is borderline dilated. Mild right ventricular systolic dysfunction. Aortic Valve: The aortic valve is trileaflet. Mild aortic regurgitation. Mitral Valve: There is moderate to severe mitral annular calcification. The mitral valve is moderately sclerotic. There is mild mitral regurgitation. Tricuspid Valve: The tricuspid valve is normal in structure. There is mild tricuspid regurgitation. The right ventricular systolic pressure is 50 - 55 mmHg. Right ventricular systolic pressure is consistent with moderate pulmonary hypertension. Pulmonic Valve: The pulmonic valve is not well seen, but is grossly normal. Arteries: Mild aortic root dilatation. The aortic root is 4.4 cm. Effusions: No pericardial effusion seen. There is no pleural effusion. Transcribed By: TREY Performed At: 09/19/24 0852 Signed By: Yuriy Conway MD, [facility] 09/19/24 1043 Normal [facility] Eosinophils Auto (Bld) [#/Vo l]Ordered By: Tobin Alvarez on 09-19-2024 Eosinophils (Bld) [#/Vol] Automated eosinophil count 0.0-0.45 [facility] Eosinophils/100 WBC Auto (Bl d)Ordered By: Tobin Alvarez on 09-19-2024 Eosinophils/100 WBC (Bld) Automated eosinophil % . [facility] Erythrocyte distribution wid th Auto (RBC) [Ratio]Ordered By: Tobin Alvarez on 09-19-2024 Erythrocyte distribution width (RBC) [Ratio] Erythrocyte distribution width [Ratio] by Automated count 11.9-15.3 [facility] Glucose Glucometer (dC) [M ass/Vol]Ordered By: Yuriy Conway on 09-19-2024 Glucose [Mass/Vol] Capillary blood glucose measurement by glucometer (mass/volume) 70-105 [facility] Glucose [Mass/Vol] Capillary blood glucose measurement by glucometer (mass/volume) [facility] Comment on above: Random Glucose Refer ence Range is dependent on time and content of last meal. Glucose of more than 200 mg/dL in a nonstressed, ambulatory subject supports the diagnosis of Diabetes Mellitus. Glucose Poct Glucometerson 0 09-19-2024 Commemt1 Glu2: Cleaned Meter Normal [facility] Comment on above: Result Comment: PERF ORMED BY: [facility] [address] [place] [address] PATHOLOGIST BLOCKLAYER ZHAO WORRELL M.D. Performed By: #### G NAS ####Point of Care testing, Glucose [Mass/Vol] 79 mg/dL Normal [facility] Comment on above: Result Comment: [place] om Glucose Reference Range is dependent on time and content of last meal. Glucose of more than 200 mg/dL in a nonstressed, ambulatory subject supports the diagnosis of Diabetes Mellitus. Performed By: #### G LULS ####Point of Care testing, Glucose [Mass/volume] in Ser um or PlasmaOrdered By: Tobin Alvarez on 09-19-2024 Glucose [Mass/Vol] Glucose [Mass/volume ] in Serum or Plasma Critically low 70-100 [facility] Comment on above: Critical Result Call ed to and read back by: SUSAN PRATT at: 09/19/2024 09:27:53 by:[id number] recommended reference rangeRandom Glucose Reference Range is dependent on time and content of last meal. Glucose of more than 200 mg/dL in a nonstressed, ambulatory subject supports the diagnosis of Diabetes Mellitus. Hematocrit Auto (Bld) [Volum e fraction]Ordered By: Tobin Alvarez on 09-19-2024 Hematocrit (Bld) [Volume fraction] Hematocrit [Volume Fraction] of Blood by Automated count 34.0-46.4 [facility] Hemoglobin Calc (Bld) [Mass/ Vol]Ordered By: Yuriy Conway on 09-19-2024 Hemoglobin (Bld) [Mass/Vol] Blood hemoglobin measurement by calculation (mass/volume) 12.0-17.0 [facility] Hemoglobin [Mass/volume] in BloodOrdered By: Tobin Alvarez on 09-19-2024 Hemoglobin (Bld) [Mass/Vol] Hemoglobin [Mass/volume] in Blood 11.8-15.4 [facility] ISTAT ABGon 09-19-2024 CO2 [Moles/Vol] 27 mmol/L Normal 23-29 [facility] Comment on above: Performed By: #### I SABG #### [facility] [address] [place] [address] Glucose [Mass/Vol] 75 mg/dL Normal 70-105 [facility] Comment on above: Result Comment: PERF ORMED BY: [place] [address] PATHOLOGIST BLOCKLAYER ZHAO WORRELL M.D. Performed By: #### I SABG #### [facility] [address] [place] [address] HCO3 (Bld) [Moles/Vol] 25.4 mmol/L Normal 22.0-28.0 T anthony [facility] Comment on above: Performed By: #### I SABG #### [address] Hemoglobin (Bld) [Mass/Vol] 13.9 g/dL Normal 12.0-17.0 [facility] Comment on above: Performed By: #### I SABG #### [address] ISTAT Base Excess 1 mmol/L Normal -2 TO 3 [facility] Comment on above: Performed By: #### I SABG #### [address] ISTAT Ionized Calcium 1.11 mol/L Low 1.12-1.32 [facility] Comment on above: Performed By: #### I SABG #### [address] ISTAT PCO2 37.6 mm[Hg] Normal 35-51 [facility] Comment on above: Performed By: #### I SABG #### [address] ISTAT Ph 7.439 Normal 7.31-7.45 [facility] Comment on above: Performed By: #### I SABG #### [address] ISTAT PO2 39 mm[Hg] Low 80-105 [facility] Comment on above: Performed By: #### I SABG #### [address] Oxygen saturation in Blood 76 % Low 95-98 [facility] Comment on above: Result Comment: Refe rence ranges reflect baseline specimens only Performed By: #### I SABG #### [address] Potassium [Moles/Vol] 4.4 mmol/L Normal 3.5-4.9 [facility] Comment on above: Performed By: #### I SABG #### [facility] [address] Sodium [Moles/Vol] 139 mmol/L Normal 138-146 [facility] Comment on above: Performed By: #### I SABG #### [facility] [address] ISTAT ABGOrdered By: Yuriy Conway on 09-19-2024 Hematocrit (Bld) [Volume fraction] 41.0 % Normal 38.0-51.0 [facility] Comment on above: Performed By: #### I SABG #### [facility] [address] Leukocytes [#/volume] correc manjinder for nucleated erythrocytes in Blood by Automated counOrdered By: Tobin Alvarez on 09-19-2024 WBC corrected for nucl RBC Auto (Bld) [#/Vol] Leukocytes [#/volume] corrected for nucleated erythrocytes in Blood by Automated coun 3.8-11.6 [facility] Lymphocytes Auto (Bld) [#/Vo l]Ordered By: Tobin Alvarez on 09-19-2024 Lymphocytes (Bld) [#/Vol] Lymphocytes [#/volume] in Blood by Automated count 1.00-4.8 [facility] Lymphocytes/100 WBC Auto (Bl d)Ordered By: Tobin Alvarez on 09-19-2024 Lymphocytes/100 WBC (Bld) Lymphocytes/100 leukocytes in Blood by Automated count . [facility] MCH Auto (RBC) [Entitic mass ]Ordered By: Tobin Alvarez on 09-19-2024 MCH (RBC) [Entitic mass] MCH [Entitic mass] by Automated count 24.7-34.3 [facility] MCHC Auto (RBC) [Mass/Vol]Or dered By: Tobin Alvarez on 09-19-2024 MCHC (RBC) [Mass/Vol] MCHC [Mass/volume] by Automated count 32.0-35.0 [facility] MCV Auto (RBC) [Entitic vol] Ordered By: Tobin Alvarez on 09-19-2024 MCV (RBC) [Entitic vol] MCV [Entitic vol ume] by Automated count 80-100 [facility] Monocytes Auto (Bld) [#/Vol] Ordered By: Tobin Alvarez on 09-19-2024 Monocytes (Bld) [#/Vol] Automated blood monocyte count High 0.0-0.8 [facility] Monocytes/100 WBC Auto (Bld) Ordered By: Tobin Alvarez on 09-19-2024 Monocytes/100 WBC (Bld) Automated monocyte % . [facility] Neutrophils Auto (Bld) [#/Vo l]Ordered By: Tobin Alvarez on 09-19-2024 Neutrophils (Bld) [#/Vol] Neutrophils [#/volume] in Blood by Automated count 1.8-7.7 [facility] Neutrophils/100 WBC Auto (Bl d)Ordered By: Tobin Alvarez on 09-19-2024 Neutrophils/100 WBC (Bld) Automated neutrophil % . [facility] No Panel InformationOrdered By: Yuriy Conway on 09-19-2024 Bedside Glucose Comment Glu2: cleaned meter [facility] No Panel InformationOrdered By: Tobin Alvarez on 09-19-2024 Estimated GFR (CKD-EPI) N/A F [facility] Creatinine Clearance (Chem N/A [facility] Nucleated erythrocytes [Pres ence] in Blood by Automated countOrdered By: Tobin Alvarez on 09-19-2024 Nucleated RBC Auto Ql (Bld) Nucleated erythrocytes [Presence] in Blood by Automated count 0-0.5 [facility] Platelet mean volume Auto (B ld) [Entitic vol]Ordered By: Tobin Alvarez on 09-19-2024 Platelet mean volume (Bld) [Entitic vol] Platelet mean volume [Entitic volume] in Blood by Automated count 6.3-10.7 [facility] Platelets Auto (Bld) [#/Vol] Ordered By: Tobin Alvarez on 09-19-2024 Platelets (Bld) [#/Vol] Platelets [#/vol ume] in Blood by Automated count 150-450 [facility] Potassium (Bld) [Moles/Vol]O rdered By: Yuriy Conway on 09-19-2024 Potassium [Moles/Vol] Whole blood potass ium measurement 3.5-4.9 [facility] Potassium [Moles/volume] in Serum or PlasmaOrdered By: Tobin Alvarez on 09-19-2024 Potassium [Moles/Vol] Potassium [Moles/volume] in Serum or Plasma 3.5-5.1 [facility] RBC Auto (Bld) [#/Vol]Ordere d By: Tobin Alvarez on 09-19-2024 RBC (Bld) [#/Vol] Erythrocytes [#/volume] in Blood by Automated count 3.60-5.00 [facility] Serum or plasma anion gap de terminationOrdered By: Tobin Alvarez on 09-19-2024 Anion gap [Moles/Vol] Serum or plasma an ion gap determination High 6.0-15.0 [facility] Sodium (Bld) [Moles/Vol]Orde red By: Yuriy Conway on 09-19-2024 Sodium [Moles/Vol] Whole blood sodium measurement 138-146 [facility] Sodium [Moles/volume] in Ser um or PlasmaOrdered By: Tobin Alvarez on 09-19-2024 Sodium [Moles/Vol] Sodium [Moles/volume ] in Serum or Plasma Low 136-145 [facility] Urea nitrogen [Mass/volume] in Serum or PlasmaOrdered By: Tobin Alvarez on 09-19-2024 Urea nitrogen [Mass/Vol] Urea nitrogen [Mass/volume] in Serum or Plasma 7-25 [facility] WBC Auto (Bld) [#/Vol]Ordere d By: Tobin Alvarez on 09-19-2024 WBC (Bld) [#/Vol] Leukocytes [#/volume ] in Blood by Automated count 3.8-11.6 [facility] Whole blood bicarbonate kelli urementOrdered By: Yuriy Conway on 09-19-2024 HCO3 (Bld) [Moles/Vol] Whole blood bicarbonate measurement 22.0-28.0 [facility] Whole blood ionized calcium measurement (moles/volume)Ordered By: Yuriy Conway on 09-19-2024 Calcium.ionized (Bld) [Moles/Vol] Whole blood ionized calcium measurement (moles/volume) Low 1.12-1.32 [facility] Whole blood oxygen saturatio n measurementOrdered By: Yuriy Conway on 09-19-2024 Oxygen saturation in Blood Whole blood oxygen saturation measurement Low 95-98 [facility] Comment on above: Reference ranges ref lect baseline specimens only Whole blood pHOrdered By: Real Conway on 09-19-2024 pH (Bld) Whole blood pH 7.31-7.45 [facility] CT angio [place] 09-15-2024 CT angio chest [facility] [place] [address] CT Scan Report Signed Patient: Jesus Wolf MR#: [id number] : 1955 Acct:[id number] Age/Sex: 69 / F ADM Date: 09/15/24 Loc: CT Room: Type: [facility] Attending Dr: Yuriy Conway MD Copies to: Yuriy Conway MD, [facility] Ordering Provider: Yuriy Conway MD, [facility] Date of Service: 09/15/24 CT/CT angio chest: R93.1 CTA chest CLINICAL DATA: Abnormal echo. Shortness of breath with exertion.. TECHNIQUE: Intravenous contrast-enhanced CT angiography of the chest was performed. Axial, sagittal, coronal, and 3D-dimensional reconstructions were created and reviewed. These CT exams were performed using one or more of the following dose reduction techniques: Automated exposure control, adjustment of the mA and/or kV according to patient size, or use of iterative reconstruction technique. COMPARISON: CT chest 09/18/2019 02/07/2022 FINDINGS: Chest: Mediastinum:Thoracic ribs demonstrates mild calcification with ectasia of the ascending thoracic aorta measuring 4.5 cm. No dissection is seen. Three-vessel arch is noted. Pulmonary trunk appears dilated at 4.5 cm. No pericardial effusion. Left atrial occlusion device is seen. No lymphadenopathy. The esophagus is grossly unremarkable. Lungs:Scattered areas of lung scarring. No consolidation pneumothorax or pleural effusion. No nodule. Abd: No acute process.[ Soft tissues/Bones: No acute findings. Osseous structures demonstrate degenerative change. CT/CT angio chest IMPRESSION: Ectasia of the 8 ascending thoracic rim measuring 4.5 cm unchanged from the 2021 study. No evidence of dissection or rupture. Dilatation of the pulmonary trunk suspicious for pulmonary hypertension. Impression dictated by: Jose Concepcion Jr., D.O.09/15/2024 3:59 PM Dictation Location: [place] [address] Transcribed By: [facility] 09/15/24 155 Dictated By: Jose Concepcion Jr, DO 09/15/24 155 Signed By: 09/15/24 1559 Normal [facility] Creatinine (Bld) [Mass/Vol]O rdered By: Yuriy Conway on 09-15-2024 Creatinine [Mass/Vol] Whole blood creati nine measurement 0.6-1.3 [facility] Comment on above: ER/ESD physician is notified/shown all ISTAT results.Critical values may be confirmed by laboratory testing ifdeemed necessary by ER attending doctor. ISTAT XRay CREon 09-15-2024 Creatinine [Mass/Vol] 1.2 mg/dL Normal 0.6-1.3 [facility] Comment on above: Result Comment: ER/E SD physician is notified/shown all ISTAT results. Critical values may be confirmed by laboratory testing if deemed necessary by ER attending doctor. Performed By: #### I SCRE #### [facility] [address] [place] [address] ISTAT GFR 49.306 Normal [facility] Comment on above: Result Comment: PERF ORMED BY: [place] [address] PATHOLOGIST BLOCKLAYER ZHAO WORRELL M.D. Performed By: #### I SCRE #### [facility] [address] [place] [address] No Panel InformationOrdered By: Yuriy Conway on 09-15-2024 Bedside Estimated GFR (eGFR) 49.306 [facility] TRANSTHORACIC ECHO (TTE) COM PLETEon 09-12-2024 TRANSTHORACIC ECHO (TTE) COMPLETE [address], [address], [place] [address] TRANSTHORACIC ECHOCARDIOGRAM REPORT Patient Name: JESUS Ezio Recio Physician: [id number] Yuriy Conway MD, [facility] Study Date: 09/12/2024 Ordering Provider: [id number] YURIY CONWAY MRN/PID: [id number] Fellow: Nurse: Date of /Age: 7 1955 / 69 years Bar Staff: Gender Assigned at F Additional Staff: : Height: 170.18 cm Admit Date: Weight: 115.67 kg Admission Status: Outpatient BSA / BMI: 2.24 m2 / 39.94 Department Location: [facility] Heart kg/m2 [place] Blood Pressure: 140 /90 mmHg Study Type: TRANSTHORACIC ECHO (TTE) COMPLETE Diagnosis/ICD: Chronic diastolic (congestive) heart failure (CHF)-I50.32; Shortness of breath-R06.02 Indication: CHF SOB CPT Codes: Echo Complete w Full Doppler-[id number] Patient History: Pertinent History: A-Fib, HTN, Hyperlipidemia and Watchman. Study Detail: The following Echo studies were performed: 2D, M-Mode, Doppler and color flow. Optison used as a contrast agent for endocardial border definition. Total contrast used for this procedure was 0.5 mL via IV push. PHYSICIAN INTERPRETATION: Left Ventricle: Left ventricular ejection fraction is normal, by visual estimate at 60-65%. There are no regional wall motion abnormalities. The left ventricular cavity size is normal. There is mild increased septal thickness. There is left ventricular concentric remodeling. Spectral Doppler shows an abnormal pattern of left ventricular diastolic filling. Mild concentric left ventricular hypertrophy. Left Atrium: The left atrial size is mildly dilated. Right Ventricle: The right ventricle is normal in size. There is normal right ventricular global systolic function. Right Atrium: The right atrial size is normal. Aortic Valve: The aortic valve is trileaflet. The aortic valve dimensionless index is 0.54. There is mild aortic valve regurgitation. The peak instantaneous gradient of the aortic valve is 11 mmHg. The mean gradient of the aortic valve is 7 mmHg. Mitral Valve: The mitral valve is moderately thickened. There is severe mitral annular calcification. The peak instantaneous gradient of the mitral valve is 12 mmHg. There is mild mitral valve regurgitation. Tricuspid Valve: The tricuspid valve is structurally normal. There is mild tricuspid regurgitation. Estimated RVSP 62 mmHg consistent with moderate-severe pulmonary hypertension. Pulmonic Valve: The pulmonic valve is not well visualized. There is no indication of pulmonic valve regurgitation. Pericardium: No pericardial effusion noted. Aorta: The aortic root is abnormal. Suspected flap in the ascending aorta raising concern for aortic dissection without significant ascending aortic dilatation, CT scan of the ascending aorta is recommended. Systemic Veins: The inferior vena cava appears normal in size. In comparison to the previous echocardiogram(s): When compared to study from 09/17/2022, the RVSP has increased from 36 mmHg up to 62 mmHg, the pathology suggesting dissection of the ascending aorta was not noted previously. CONCLUSIONS: 1. Left ventricular ejection fraction is normal, by visual estimate at 60-65%. 2. Spectral Doppler shows an abnormal pattern of left ventricular diastolic filling. 3. Mild concentric left ventricular hypertrophy. 4. There is normal right ventricular global systolic function. 5. The mitral valve is moderately thickened. 6. There is severe mitral annular calcification. 7. Mild mitral valve regurgitation. 8. Estimated RVSP 62 mmHg consistent with moderate-severe pulmonary hypertension. 9. Mild aortic valve regurgitation. 10. Suspected flap in the ascending aorta raising concern for aortic dissection without significant ascending aortic dilatation, CT scan of the ascending aorta is recommended. 11. When compared to study from 09/17/2022, the RVSP has increased from 36 mmHg up to 62 mmHg, the pathology suggesting dissection of the ascending aorta was not noted previously. QUANTITATIVE DATA SUMMARY: 2D MEASUREMENTS: Normal Ranges: LAs: 4.51 cm (2.7-4.0cm) RVIDd: 2.75 cm (0.9-3.6cm) IVSd: 1.01 cm (0.6-1.1cm) LVPWd: 0.95 cm (0.6-1.1cm) LVIDd: 4.39 cm (3.9-5.9cm) LVIDs: 2.99 cm LV Mass Index: 73.2 g/m2 LVEDV Index: 38.13 ml/m2 LV % FS 32.0 % LEFT ATRIUM: Normal Ranges: LA Vol A4C: 84.9 ml (22+/-6mL/m2) LA Vol A2C: 92.8 ml LA Vol BP: 96.5 ml LA Vol Index A4C: 37.9 ml/m2 LA Vol Index A2C: 41.4 ml/m2 LA Vol Index BP: 43.0 ml/m2 LA Vol A4C: 76.0 ml LA Vol A2C: 87.6 ml LA Vol Index BSA: 36.5 ml/m2 LV SYSTOLIC FUNCTION: Normal Ranges: EF-A4C View: 69 % (>=55%) EF-A2C View: 63 % EF-Biplane: 67 % EF-Visual: 63 % LV EF Reported: 63 % LV DIASTOLIC FUNCTION: Normal Ranges: MV Peak E: 1.47 m/s (0.7-1.2 m/s) MV e' 0.089 m/s (>8.0) MV lateral e' 0.09 m/s MV medial e' 0.08 m/s E/e' Ratio: 16.57 (<8.0) MITRAL VA (more content not included)... [facility] X-ray reportOrdered By: Malik Concepcion on 08-29-2024 Study report [facility] [address] [address] XRay Report Signed Patient: Jesus Wolf MR#: [id number] : 1955 Acct:[id number] Age/Sex: 69 / F ADM Date: 5 Loc: RT Room: Type: [facility] Attending Dr: Yuriy Conway MD Copies to: Yuriy Conway MD, [facility]~ Ordering Provider: Yuriy Conway MD, [facility] Date of Service: 08/29/24 XR/XR chest 2V*: I48.0,Z79.899 Chest 2 views CLINICAL HISTORY: Follow-up long-term high risk medication use. COMPARISON: Chest 02/07/2022 FINDINGS: Heart normal in size. Right mid lung scarring. No new consolidation pneumothorax pleural effusion or free air. XR/XR chest 2V* IMPRESSION: NO ACUTE CARDIOPULMONARY ABNORMALITY. Impression dictated by: Jose Concepcion Jr., D.OAjay08/29/2024 3:02 PM Dictation Location: [place] [address] Transcribed By: [facility] 08/29/24 1502 Dictated By: Jose Concepcion Jr, DO 08/29/24 1502 Signed By: 08/29/24 1502 [facility] XR chest 2V*on 08-29-2024 XR chest 2V* [facility] [address] [address] XRay Report Signed Patient: Jesus Wolf MR#: [id number] : 1955 Acct:[id number] Age/Sex: 69 / F ADM Date: 08/29/24 Loc: RT Room: Type: [facility] Attending Dr: Yuriy Conway MD Copies to: Yuriy Conway MD, [facility] Ordering Provider: Yuriy Conway MD, [facility] Date of Service: 08/29/24 XR/XR chest 2V*: I48.0,Z79.899 Chest 2 views CLINICAL HISTORY: Follow-up long-term high risk medication use. COMPARISON: Chest 02/07/2022 FINDINGS: Heart normal in size. Right mid lung scarring. No new consolidation pneumothorax pleural effusion or free air. XR/XR chest 2V* IMPRESSION: NO ACUTE CARDIOPULMONARY ABNORMALITY. Impression dictated by: Jose Concepcion Jr., D.O.08/29/2024 3:02 PM Dictation Location: [place] [address] Transcribed By: [facility] 08/29/24 1502 Dictated By: Jose Concepcion Jr, DO 08/29/24 1502 Signed By: 08/29/24 1502 Normal [facility] CT WATCHMAN FULL CONTRASTon 08-15-2024 CT WATCHMAN FULL CONTRAST Interpreted By: Denis Chand, ADDENDUM: NON-CARDIOVASCULAR FINDINGS INCLUDED LUNGS, AIRWAYS AND PLEURA Endotracheal / endobronchial lesion: Negative Nodule: Negative Airspace disease: One small but incompletely included region of airspace ground-glass changes in the right upper lobe Pleural effusion: Negative Pneumothorax: Negative Other: Incompletely included region of atelectasis in the right upper lobe INCLUDED NON-CARDIOVASCULAR GARRETT AND MEDIASTINUM Adenopathy: Negative Included esophagus: Unremarkable Other: No acute or contributory unanticipated findings INCLUDED BONES: No acute skeletal findings, noting less sensitivity and specificity without dedicated sagittal and coronal reformatted series. INCLUDED CHEST WALL No acute or contributory unanticipated findings INCLUDED UPPER ABDOMEN No acute or contributory unanticipated findings ------- NON-CARDIOVASCULAR IMPRESSION Atelectasis in the right upper lobe and one region of nonspecific ground-glass airspace disease in the right upper lobe, neither completely included in the field of view NOTE THIS ADDENDUM IS SOLELY FOR INTERPRETATION OF ANATOMY OUTSIDE THE CARDIOVASCULAR SYSTEM. INTERPRETATION OF AND REPORTING OF THE CARDIOVASCULAR STRUCTURES ARE THE SOLE RESPONSIBILITY OF THE SHELTER MONITOR SUBMITTING THE ORIGINAL REPORT (NOT THIS ADDENDUM) Signed by: Denis Chand 08/30/2024 1:20 PM -------- ORIGINAL REPORT -------- Dictation workstation: [id number] Interpreted By: Beverly Steiner and Amoah Joseph STUDY: CT WATCHMAN FULL CONTRAST; 08/15/2024 12:48 pm INDICATION: Signs/Symptoms:Post Watchman device surveillance. ,I48.0 Paroxysmal atrial fibrillation (Multi),R04.0 Epistaxis,D64.9 Anemia, unspecified,Z01.818 Encounter for other preprocedural examination COMPARISON: CT WATCHMAN DONE ON 04/07/2024. ACCESSION NUMBER(S): [id number] ORDERING CLINICIAN: JUAN CHINO TECHNIQUE: Using multi detector CT technology,axial imaging with prospective gating was performed of the chest following the intravenous administration of 70 ML Omnipaque 350. For optimization of anatomic evaluation, multiplanar reconstruction, maximum intensity projections, and advanced 3-D off-line postprocessing were performed on a dedicated stand-alone workstation under the direct supervision of the interpreting physician. DLP 1049 FINDINGS: POTENTIAL STUDY LIMITATIONS: None CORONARY ARTERIES: CORONARY ANATOMY: There is normal origin of the coronary arteries. Right dominant system. No discernible coronary artery atherosclerosis or stenotic disease seen. Please note, the study is not optimized for evaluation of coronary arteries. CARDIAC CHAMBERS: The cardiac chambers demonstrate normal atrioventricular and ventriculoarterial concordance, and systemic and pulmonary venous return. LEFT ATRIUM: Significantly dilated 5.0 cm. (32-cm2). The patient is status post left atrial appendage closure device placement(Watchman). The device is not well position in the left atrial appendage. Device is tilted longitudinal in the left atrial appendage with evidence of incomplete left atrial appendage closure. There is contrast communication along the inferior side of closure device with the distal left atrial appendage. The space between closure device and left atrial appendage wall measures 4 mm were contrast is present. There is contrast within the left atrial appendage closure device. There is contrast in the distal left atrial appendage. No evidence of thrombus in the distal left atrial appendage. No evidence of left atrial thrombus. RIGHT ATRIUM: Normal size ( 27 - cm2) VENTRICLES: The left and right ventricles appear normal in appearance, although accurate size measurements are not possible on systolic phase imaging. INTERATRIAL SEPTUM: Intact. INTERVENTRICULAR SEPTUM: Intact. AORTIC VALVE: The aortic valve is trileaflet in morphology. Calcification of the aortic valve MITRAL VALVE: There areprominent mitral annular calcifications seen. Otherwise, no valvular thickening or calcifications. THORACIC AORTA: Stable aneurysmal dilatation of the mid ascending aorta measuring 4.4 cm. Aortic root 4.3 cm. The aortic arch is not included on this examination. Pulmonary artery Main pulmonary artery : 4.2 cm Right pulmonary artery : 1.9 cm Left pulmonary arteries: 2 cm PERICARDIUM: There is no pericardial effusion seen. IMPRESSION: 1. The patient is status post left atrial appendage closure device placement(Watchman). The device is not well position in the left atrial appendage. Device is tilted longitudinal in the left atrial appendage with evidence of incomplete left atrial appendage closure. Darby device leak is present measuring 4 mm between left atrial appendage wall and closure device. There is contrast within the (more content not included)... [facility] Sarita 08-11-2024 GILMA Telephone (CYNTHIAORRZach) JESUS WOLF ([id number]) 1955 F Date Time Provider Department 08/11/24 MARY MORALES During your visit today, we recorded the following information about you: Karime Tinsley 08/11/2024 3:52 PM Signed Called patient to confirm she received the message that was sent by Ana Paula cramerceling her appointment. Patient reports vaguely getting a message of sorts. I asked the patient if she would like to reschedule. She declined and reports her knee has been doing ok since the last injection. Allergies As of Date: 08/11/2024 Noted Allergy Reaction DOFETILIDE 03/15/2020 14 - [...] spot in area of shot Date Reviewed: 08/11/2024 Reviewed by: Sai Plascencia RN - Fully Assessed Reason for Visit: Appointment [186] Cmt: Ortho appt cancel/reschedule Prescriptions as of 08/11/2024 - pantoprazole DR (PROTONIX) 40 mg tablet Take 1 tablet by mouth twice daily - diclofenac (VOLTAREN ARTHRITIS PAIN) 1 % topical gel Apply 4 g to affected area four times daily. - alendronate (FOSAMAX) 70 mg tablet Take 1 tablet by mouth one time a week. In the morning with a full glass of water, on an empty stomach. Do not take anything else by mouth or lie down for the next 30 minutes. - hydrOXYchloroQUINE (PLAQUENIL) 200 mg tablet take 1 tablet by mouth twice a day with food - Mesalamine (LIALDA) 1.2 gram EC tablet Take 4 tablets by mouth once daily. - colestipol (COLESTID) 1 gram tablet Take 3 tablets by mouth two times a day. - ferrous sulfate (IRON) 325 mg (65 mg iron) tablet Take 1 tablet by mouth once daily. - amiodarone (PACERONE) 200 mg tablet Take 1 tablet by mouth [...] the MR contrast administration guidelines link. - amoxicillin (AMOXIL) 500 mg capsule Take 4 tablets one hour prior to dental procedure - metoprolol succinate ER (TOPROL XL) 50 mg 24 hr tablet TAKE 1 TABLET BY MOUTH IN THE MORNING AND 2 TABLETS BY MOUTH IN THE EVENING - ELIQUIS 5 mg tab(s) Take 5 mg by mouth twice daily. - acetaminophen (TYLENOL) 500 mg tablet Take 1 tablet by mouth every 4 hours as needed for pain. - uylvuml-lkaevswbo-hzhx min D3 500 mg-5 mcg (200 unit) per tablet Take 1 tablet by mouth three times daily. - MV with Ffi-Olsenbdh-Amjgbc (CENTRUM SILVER) 0.4 mg-300 mcg- 250 mcg [...] mg by mouth daily at bedtime. - Cholecalciferol, Vitamin D3, 2,000 unit cap Take by mouth once daily. - vitamin b complex(B COMPLEX TAB) one daily - multivitamins w-minerals/lut(CENTRUM SILVER TAB) Take one(1) tablet daily. 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 Normal [facility] Renal function 2000 panelon 08-11-2024 Albumin [Mass/Vol] 3.7 g/dL Low 3.9-4.9 [facility] Comment on above: Order Comment: Speci yung Type: BLOOD SPECIMENOrdering Facility: External Submitter Address: , , Performed By: #### 2 4362-6 ####[facility] LABCLIA [id number] [place] [address] [place] Anion gap [Moles/Vol] 11 mmol/L Normal 8-15 [facility] Comment on above: Order Comment: Speci yung Type: BLOOD SPECIMENOrdering Facility: External Submitter Address: , , Performed By: #### 2 4362-6 ####[facility] LABCLIA [id number] [place] [address] [place] Calcium [Mass/Vol] 9.1 mg/dL Normal 8.5-10.2 [facility] Comment on above: Order Comment: Isadorai men Type: BLOOD SPECIMENOrdering Facility: External Submitter Address: , , Performed By: #### 2 4362-6 ####[facility] LABCLIA [id number] [place] [id number] [place] Chloride [Moles/Vol] 106 mmol/L Normal 98-107 [facility] Comment on above: Order Comment: Morena barragan Type: BLOOD SPECIMENOrdering Facility: External Submitter Address: , , Performed By: #### 2 4362-6 ####[facility] LABCLIA [id number] [place] [address] [place] CO2 [Moles/Vol] 24 mmol/L Normal 22-30 [facility] Comment on above: Order Comment: Speci yung Type: BLOOD SPECIMENOrdering Facility: External Submitter Address: , , Performed By: #### 2 4362-6 ####[facility] LABCLIA [id number] [place] [address] [place] Creatinine [Mass/Vol] 1.03 mg/dL High 0.58-0.96 [facility] Comment on above: Order Comment: Speci men Type: BLOOD SPECIMENOrdering Facility: External Submitter Address: , , Performed By: #### 2 4362-6 ####[facility] LABIA [id number] [address] Creatinine and Glomerular filtration rate.predicted panel (S/P/Bld) 59 mL/min/1.73m??? Low >=60 [facility] Comment on above: Order Comment: Isadorai yung Type: BLOOD SPECIMENOrdering Facility: External Submitter Address: , , Result Comment: Anna mated Glomerular Filtration Rate [...] reflect actual GFR. Performed By: #### 2 4362-6 ####[facility] LABIA [id number] [place] [address] [place] Glucose [Mass/Vol] 82 mg/dL Normal 74-99 [facility] Comment on above: Order Comment: Morena barragan Type: BLOOD SPECIMENOrdering Facility: External Submitter Address: , , Result Comment: The [place] [employer] (ADA) provides guidance for cutoff [...] Standards of Medical Care in Diabetes 2016, [place] [employer]. Diabetes Care. 2016.39(Suppl 1). Performed By: #### 2 4362-6 ####[facility] LABCLIA [id number] [place] [address] [place] Phosphate [Mass/Vol] 3.1 mg/dL Normal 2.7-4.8 [facility] Comment on above: Order Comment: Speci men Type: BLOOD SPECIMENOrdering Facility: External Submitter Address: , , Performed By: #### 2 4362-6 ####[facility] LABCLIA [id number] [place] [address] [place] Potassium [Moles/Vol] 4.7 mmol/L Normal 3.7-5.1 [facility] Comment on above: Order Comment: Speci men Type: BLOOD SPECIMENOrdering Facility: External Submitter Address: , , Performed By: #### 2 4362-6 ####[facility] LABCLIA [id number] [place] [id number] [place] Sodium [Moles/Vol] 141 mmol/L Normal 136-144 [facility] Comment on above: Order Comment: Speci men Type: BLOOD SPECIMENOrdering Facility: External Submitter Address: , , Performed By: #### 2 4362-6 ####[facility] LABCLIA [id number] [place] [id number] [place] Urea nitrogen [Mass/Vol] 24 mg/dL High 7-21 [facility] Comment on above: Order Comment: Speci men Type: BLOOD SPECIMENOrdering Facility: External Submitter Address: , , Performed By: #### 2 4362-6 ####[facility] LABCLIA [id number] [place] [address] [address] [place] Sarita 08-08-2024 GILMA Telephone (EILEEN) JESUS WOLF ([id number]) 1955 F Date Time Provider Department 08/08/24 ADELAIDE CASILLAS During your visit today, we recorded the following information about you: Adelaide Casillas RN 08/08/2024 11:20 AM Signed Called and spoke with patient. Confirmed she is well and will be coming for her infusion on . Allergies As of Date: 08/08/2024 Noted Allergy Reaction DOFETILIDE 03/15/2020 14 - [...] spot in area of shot Date Reviewed: 06/14/2024 Reviewed by: Coco Guzman, RN - Fully Assessed Reason for Visit: Appointment [186] Prescriptions as of 08/08/2024 - pantoprazole DR (PROTONIX) 40 mg tablet Take 1 tablet by mouth twice daily - diclofenac (VOLTAREN ARTHRITIS PAIN) 1 % topical gel Apply 4 g to affected area four times daily. - alendronate (FOSAMAX) 70 mg tablet Take 1 tablet by mouth one time a week. In the morning with a full glass of water, on an empty stomach. Do not take anything else by mouth or lie down for the next 30 minutes. - hydrOXYchloroQUINE (PLAQUENIL) 200 mg tablet take 1 tablet by mouth twice a day with food - Mesalamine (LIALDA) 1.2 gram EC tablet Take 4 tablets by mouth once daily. - colestipol (COLESTID) 1 gram tablet Take 3 tablets by mouth two times a day. - ferrous sulfate (IRON) 325 mg (65 mg iron) tablet Take 1 tablet by mouth once daily. - amiodarone (PACERONE) 200 mg tablet Take 1 tablet by mouth [...] the MR contrast administration guidelines link. - amoxicillin (AMOXIL) 500 mg capsule Take 4 tablets one hour prior to dental procedure - metoprolol succinate ER (TOPROL XL) 50 mg 24 hr tablet TAKE 1 TABLET BY MOUTH IN THE MORNING AND 2 TABLETS BY MOUTH IN THE EVENING - ELIQUIS 5 mg tab(s) Take 5 mg by mouth twice daily. - acetaminophen (TYLENOL) 500 mg tablet Take 1 tablet by mouth every 4 hours as needed for pain. - vdztnsu-xsdjchbtj-gwdz min D3 500 mg-5 mcg (200 unit) per tablet Take 1 tablet by mouth three times daily. - MV with Khs-Lxwqlbzi-Yqifcc (CENTRUM SILVER) 0.4 mg-300 mcg- 250 mcg [...] mg by mouth daily at bedtime. - Cholecalciferol, Vitamin D3, 2,000 unit cap Take by mouth once daily. - vitamin b complex(B COMPLEX TAB) one daily - multivitamins w-minerals/lut(CENTRUM SILVER TAB) Take one(1) tablet daily. Problem List As Of Date 08/08/2024 Noted Resolved Edema [R60.9] 02/22/2010 Proteinuria [R80.9] [...] hammer toe (acquired) [M20.40] 01/02/2014 Enthesopathy of ank (more content not included)... Normal [facility] ECG 12 Leadon 08-05-2024 ECG revealed normal sinus rhythm with first-degree block, IVCD, abnormal ECG, [facility] Work Phone: [facility] Work Phone: POCT rapid strep Aon 024 S. pyogenes Ag IA Ql (Unsp spec) Negative Negative [facility] Comprehensive metabolic 2000 panelon 06-13-2024 Albumin [Mass/Vol] 4.0 g/dL Normal 3.9-4.9 [facility] Comment on above: Order Comment: Speci men Type: BLOOD SPECIMENOrdering Facility: [facility] Address: [address] [place] [address] Performed By: #### 2 4323-8 ####[facility] LABCLIA [id number] [place] [address] ALP [Catalytic activity/Vol] 108 U/L Normal 34-123 [facility] Comment on above: Order Comment: Speci men Type: BLOOD SPECIMENOrdering Facility: [facility] Address: [address] [place] [address] Performed By: #### 2 4323-8 ####[facility] LABCLIA [id number] [place] [address] ALT [Catalytic activity/Vol] 26 U/L Normal 7-38 [facility] Comment on above: Order Comment: Speci men Type: BLOOD SPECIMENOrdering Facility: [facility] Address: [address] [place] [address] Performed By: #### 2 4323-8 ####[facility] LABCLIA [id number] [place] [address] Anion gap [Moles/Vol] 13 mmol/L Normal 8-15 [facility] Comment on above: Order Comment: Speci men Type: BLOOD SPECIMENOrdering Facility: [facility] Address: [address] [place] [address] Performed By: #### 2 4323-8 ####[facility] LABCLIA [id number] [place] [address] AST [Catalytic activity/Vol] 27 U/L Normal 13-35 [facility] Comment on above: Order Comment: Speci men Type: BLOOD SPECIMENOrdering Facility: [facility] Address: [address] [place], [place] [id number] Performed By: #### 2 4323-8 ####[facility] LABCLIA [id number] [place] [address] Bilirubin [Mass/Vol] 0.4 mg/dL Normal 0.2-1.3 [facility] Comment on above: Order Comment: Speci men Type: BLOOD SPECIMENOrdering Facility: [facility] Address: [address] [place] [address] Performed By: #### 2 4323-8 ####[facility] LABCLIA [id number] [place] [address] Calcium [Mass/Vol] 8.9 mg/dL Normal 8.5-10.2 [facility] Comment on above: Order Comment: Speci men Type: BLOOD SPECIMENOrdering Facility: [facility] Address: [address] [place] [address] Performed By: #### 2 4323-8 ####[facility] LABCLIA [id number] [place] [address] Chloride [Moles/Vol] 105 mmol/L Normal 98-107 [facility] Comment on above: Order Comment: Speci men Type: BLOOD SPECIMENOrdering Facility: [facility] Address: [address] [place] [address] Performed By: #### 2 4323-8 ####[facility] LABCLIA [id number] [place] [address] CO2 [Moles/Vol] 25 mmol/L Normal 22-30 [facility] Comment on above: Order Comment: Speci men Type: BLOOD SPECIMENOrdering Facility: [facility] Address: [address] [place], [place] [address] Performed By: #### 2 4323-8 ####[facility] LABCLIA [id number] [place] [address] Creatinine [Mass/Vol] 1.04 mg/dL High 0.58-0.96 [facility] Comment on above: Order Comment: Speci men Type: BLOOD SPECIMENOrdering Facility: [facility] Address: [address] [place] [address] Performed By: #### 2 4323-8 ####[facility] LABCLIA [id number] [place] [address] Creatinine and Glomerular filtration rate.predicted panel (S/P/Bld) 59 mL/min/1.73m??? Low >=60 [facility] Comment on above: Order Comment: Morena barragan Type: BLOOD SPECIMENOrdering Facility: [facility] Address: [address] [place] [address] Result Comment: Anna mated Glomerular Filtration Rate [...] actual GFR. Performed By: #### 2 4323-8 ####[facility] LABCLIA [id number] [place] [address] Glucose [Mass/Vol] 98 mg/dL Normal 74-99 [facility] Comment on above: Order Comment: Morena barragan Type: BLOOD SPECIMENOrdering Facility: [facility] Address: [address] [place] [address] Result Comment: The [place] [employer] (ADA) provides guidance for cutoff [...] Standards of Medical Care in Diabetes 2016, [place] [employer]. Diabetes Care. 2016.39(Suppl 1). Performed By: #### 2 4323-8 ####[facility] LABCLIA [id number] [place] [address] Potassium [Moles/Vol] 4.1 mmol/L Normal 3.7-5.1 [facility] Comment on above: Order Comment: Speci men Type: BLOOD SPECIMENOrdering Facility: [facility] Address: [address] [place] [address] Performed By: #### 2 4323-8 ####[facility] LABCLIA [id number] [place] [address] Protein [Mass/Vol] 6.1 g/dL Low 6.3-8.0 [facility] Comment on above: Order Comment: Speci men Type: BLOOD SPECIMENOrdering Facility: [facility] Address: [address] [place] [address] Performed By: #### 2 4323-8 ####[facility] LABCLIA [id number] [place] [address] Sodium [Moles/Vol] 143 mmol/L Normal 136-144 [facility] Comment on above: Order Comment: Speci men Type: BLOOD SPECIMENOrdering Facility: [facility] Address: [address] [place] [address] Performed By: #### 2 4323-8 ####[facility] LABCLIA [id number] [place] [address] Urea nitrogen [Mass/Vol] 20 mg/dL Normal 7-21 [facility] Comment on above: Order Comment: Speci men Type: BLOOD SPECIMENOrdering Facility: [facility] Address: [address] [place] [address] Performed By: #### 2 4323-8 ####[facility] LABCLIA [id number] [place] [address] Prot/Creat Uron 05-26-2024 Protein/Creatinine (U) [Mass ratio] 0.12 mg/mg Normal <0.15 [facility] Comment on above: Order Comment: Speci men Type: URINE SPECIMENOrdering Facility: [facility] Address: [address] [place] [address] Result Comment: Adul t Proteinuria Categories: <0.15 mg/mg is considered normal to mildly increased 0.15 - 0.50 mg/mg is considered moderately increased >0.50 mg/mg is considered severely increased KDIGO. (2013). KDIGO 2012 Clinical Practice Guideline for the Evaluation and Management of Chronic Kidney Disease. Official Journal of the International Society of Nephrology, 3(1), 1-150. Performed By: #### 2 890-2 ####[facility] LABIA [id number] [place] [address] [place] Protein/Creatinine (U) [Mass ratio]on 05-26-2024 Creatinine (U) [Mass/Vol] 32.1 mg/dL Normal 20.0-300.0 [facility] Comment on above: Order Comment: Speci men Type: URINE SPECIMENOrdering Facility: [facility] Address: [address] [place] [address] Performed By: #### 2 890-2 ####[facility] LABIA [id number] [place] [address] [place] Protein (U) [Mass/Vol] 4 mg/dL Normal 0-20 [facility] Comment on above: Order Comment: Speci men Type: URINE SPECIMENOrdering Facility: [facility] Address: [address] [place] [address] Performed By: #### 2 890-2 ####[facility] LABIA [id number] [place] [id number] [place] Urinalysis complete panel (U )on 05-26-2024 Bacteria LM.HPF (Urine sed) [#/Area] Negative Normal Negative [facility] Comment on above: Order Comment: Speci men Type: URINE SPECIMENOrdering Facility: [facility] Address: [address] [place] [address] Performed By: #### 2 4356-8 ####[facility] LABIA [id number] [place] [address] [place] Bilirubin Ql (U) Negative Normal Negative [facility] Comment on above: Order Comment: Speci men Type: URINE SPECIMENOrdering Facility: [facility] Address: [address] [place] [address] Performed By: #### 2 4356-8 ####[facility] LABCLIA [id number] [place] [address] [place] Clarity (Unsp spec) Clear Normal Clear [facility] Comment on above: Order Comment: Speci men Type: URINE SPECIMENOrdering Facility: [facility] Address: [address] [place] [address] Performed By: #### 2 4356-8 ####[facility] LABCLIA [id number] [place] [address] [place] Color (U) Yellow Normal Yellow [facility] Comment on above: Order Comment: Speci men Type: URINE SPECIMENOrdering Facility: [facility] Address: [address] [place] [address] Performed By: #### 2 4356-8 ####[facility] LABCLIA [id number] [place] [address] [place] Epithelial cells LM.HPF (Urine sed) [#/Area] None Seen Normal [facility] Comment on above: Order Comment: Speci men Type: URINE SPECIMENOrdering Facility: [facility] Address: [address] [place] [address] Performed By: #### 2 4356-8 ####[facility] LABCLIA [id number] [place] [address] [place] Glucose Test strip (U) [Mass/Vol] Negative Normal Negative [facility] Comment on above: Order Comment: Speci men Type: URINE SPECIMENOrdering Facility: [facility] Address: [address] [place] [address] Performed By: #### 2 4356-8 ####[facility] LABCLIA [id number] [place] [address] [place] Hemoglobin Ql (U) Negative Normal Negative [facility] Comment on above: Order Comment: Speci men Type: URINE SPECIMENOrdering Facility: [facility] Address: [address] [place] [address] Performed By: #### 2 4356-8 ####[facility] LABCLIA [id number] [place] [address] [place] Hyaline casts (Urine sed) [#/Area] 0 /[LPF] Normal 0 /LPF [facility] Comment on above: Order Comment: Speci men Type: URINE SPECIMENOrdering Facility: [facility] Address: [address] [place] [address] Performed By: #### 2 4356-8 ####[facility] LABCLIA [id number] [place] [address] [place] Ketones Ql (U) Negative Normal Negative [facility] Comment on above: Order Comment: Speci men Type: URINE SPECIMENOrdering Facility: [facility] Address: [address] [place] [address] Performed By: #### 2 4356-8 ####[facility] LABCLIA [id number] [place] [address] [place] Leukocyte esterase Test strip Ql (U) Negative Normal Negative [facility] Comment on above: Order Comment: Speci men Type: URINE SPECIMENOrdering Facility: [facility] Address: [address] [place] [address] Performed By: #### 2 4356-8 ####[facility] LABCLIA [id number] [place] [address] [place] Nitrite Ql (U) Negative Normal Negative [facility] Comment on above: Order Comment: Speci men Type: URINE SPECIMENOrdering Facility: [facility] Address: [address] [place] [address] Performed By: #### 2 4356-8 ####[facility] LABCLIA [id number] [place] [address] [place] pH (U) 5.5 [pH] Normal <8.5 [facility] Comment on above: Order Comment: Speci men Type: URINE SPECIMENOrdering Facility: [facility] Address: [address] [place] [address] Performed By: #### 2 4356-8 ####[facility] LABIA [id number] [place] [address] [place] Protein (U) [Mass/Vol] Negative Normal Negative Cl [facility] Comment on above: Order Comment: Speci men Type: URINE SPECIMENOrdering Facility: [facility] Address: [address] [place] [address] Performed By: #### 2 4356-8 ####[facility] LABIA [id number] [place] [address] [place] RBC LM.HPF (Urine sed) [#/Area] 0-2 /HPF Normal 0-2 /HPF [facility] Comment on above: Order Comment: Speci men Type: URINE SPECIMENOrdering Facility: [facility] Address: [address] [place] [address] Performed By: #### 2 4356-8 ####[facility] LABIA [id number] [place] [address] [place] Specific gravity (U) [Rel density] 1.010 Normal 1.005-1.030 [facility] Comment on above: Order Comment: Speci men Type: URINE SPECIMENOrdering Facility: [facility] Address: [address] [place] [address] Performed By: #### 2 4356-8 ####[facility] LABIA [id number] [place] [address] [place] Urobilinogen Ql (U) 0.2 EU/dL Normal 0.2-1.0 EU/dL [facility] Comment on above: Order Comment: Speci men Type: URINE SPECIMENOrdering Facility: [facility] Address: [address] [place] [address] Performed By: #### 2 4356-8 ####[facility] LABCLIA [id number] [place] [address] [place] WBC LM.HPF (Urine sed) [#/Area] 0-5 /HPF Normal 0-5 /HPF [facility] Comment on above: Order Comment: Speci men Type: URINE SPECIMENOrdering Facility: [facility] Address: [address] [place] [address] Performed By: #### 2 4356-8 ####[facility] LABCLIA [id number] [place] [address] [place] CBC W Auto Differential pane l (Bld)on 05-20-2024 Basophils (Bld) [#/Vol] 0.04 10*3/uL Normal <0.11 [facility] Comment on above: Order Comment: Speci men Type: BLOOD SPECIMENOrdering Facility: [facility] Address: [address] [place] [address] Performed By: #### 5 7021-8 ####[facility] LABCLIA [id number] [place] [address] Basophils/100 WBC (Bld) 0.5 % Normal C [facility] Comment on above: Order Comment: Speci men Type: BLOOD SPECIMENOrdering Facility: [facility] Address: [address] [place] [address] Performed By: #### 5 7021-8 ####[facility] LABCLIA [id number] [place] [address] Differential cell count method Nom (Bld) Auto Normal [facility] Comment on above: Order Comment: Speci men Type: BLOOD SPECIMENOrdering Facility: [facility] Address: [address] [place] [address] Performed By: #### 5 7021-8 ####[facility] LABCLIA [id number] [place] [address] Eosinophils (Bld) [#/Vol] 0.09 10*3/uL Normal <0.46 [facility] Comment on above: Order Comment: Speci men Type: BLOOD SPECIMENOrdering Facility: [facility] Address: [address] [place] [address] Performed By: #### 5 7021-8 ####[facility] LABCLIA [id number] [place] [address] Eosinophils/100 WBC (Bld) 1.0 % Normal [facility] Comment on above: Order Comment: Speci men Type: BLOOD SPECIMENOrdering Facility: [facility] Address: [address] [place] [address] Performed By: #### 5 7021-8 ####[facility] LABCLIA [id number] [place] [address] Erythrocyte distribution width (RBC) [Ratio] 12.9 % Normal 11.5-15.0 [facility] Comment on above: Order Comment: Speci men Type: BLOOD SPECIMENOrdering Facility: [facility] Address: [address] [place] [address] Performed By: #### 5 7021-8 ####[facility] LABCLIA [id number] [place] [address] Hematocrit (Bld) [Volume fraction] 41.2 % Normal 36.0-46.0 [facility] Comment on above: Order Comment: Speci men Type: BLOOD SPECIMENOrdering Facility: [facility] Address: [address] [place] [address] Performed By: #### 5 7021-8 ####[facility] LABCLIA [id number] [place] [address] Hemoglobin (Bld) [Mass/Vol] 13.8 g/dL Normal 11.5-15.5 [facility] Comment on above: Order Comment: Speci men Type: BLOOD SPECIMENOrdering Facility: [facility] Address: [address] [place] [address] Performed By: #### 5 7021-8 ####[facility] LABCLIA [id number] [place] [address] Immature granulocytes (Bld) [#/Vol] 0.03 10*3/uL Normal <0.10 [facility] Comment on above: Order Comment: Speci men Type: BLOOD SPECIMENOrdering Facility: [facility] Address: [address] [place] [address] Performed By: #### 5 7021-8 ####[facility] LABCLIA [id number] [place] [address] Immature granulocytes/100 WBC (Bld) 0.3 % Normal [facility] Comment on above: Order Comment: Speci men Type: BLOOD SPECIMENOrdering Facility: [facility] Address: [address] [place] [address] Performed By: #### 5 7021-8 ####[facility] LABCLIA [id number] [place] [address] Lymphocytes (Bld) [#/Vol] 0.68 10*3/uL Low 1.00-4.00 [facility] Comment on above: Order Comment: Speci men Type: BLOOD SPECIMENOrdering Facility: [facility] Address: [address] [place] [address] Performed By: #### 5 7021-8 ####[facility] LABCLIA [id number] [place] [address] Lymphocytes/100 WBC (Bld) 7.7 % Normal [facility] Comment on above: Order Comment: Speci men Type: BLOOD SPECIMENOrdering Facility: [facility] Address: [address] [place] [address] Performed By: #### 5 7021-8 ####[facility] LABCLIA [id number] [place] [address] MCH (RBC) [Entitic mass] 31.8 pg Normal 26.0-34.0 [facility] Comment on above: Order Comment: Speci men Type: BLOOD SPECIMENOrdering Facility: [facility] Address: [address] [place] [address] Performed By: #### 5 7021-8 ####[facility] LABCLIA [id number] [place] [address] MCHC (RBC) [Mass/Vol] 33.5 g/dL Normal 30.5-36.0 [facility] Comment on above: Order Comment: Speci men Type: BLOOD SPECIMENOrdering Facility: [facility] Address: [address] [place] [address] Performed By: #### 5 7021-8 ####[facility] LABCLIA [id number] [place] [address] MCV (RBC) [Entitic vol] 94.9 fL Normal 80.0-100.0 C [facility] Comment on above: Order Comment: Speci men Type: BLOOD SPECIMENOrdering Facility: [facility] Address: [address] [place] [address] Performed By: #### 5 7021-8 ####[facility] LABCLIA [id number] [place] [address] Monocytes (Bld) [#/Vol] 0.34 10*3/uL Normal <0.87 [facility] Comment on above: Order Comment: Speci men Type: BLOOD SPECIMENOrdering Facility: [facility] Address: [address] [place] [address] Performed By: #### 5 7021-8 ####[facility] LABCLIA [id number] [place] [address] Monocytes/100 WBC (Bld) 3.8 % Normal C [facility] Comment on above: Order Comment: Speci men Type: BLOOD SPECIMENOrdering Facility: [facility] Address: [address] [place] [address] Performed By: #### 5 7021-8 ####[facility] LABCLIA [id number] [place] [address] Neutrophils (Bld) [#/Vol] 7.67 10*3/uL High 1.45-7.50 [facility] Comment on above: Order Comment: Speci men Type: BLOOD SPECIMENOrdering Facility: [facility] Address: [address] [place] [address] Performed By: #### 5 7021-8 ####[facility] LABCLIA [id number] [place] [address] Neutrophils/100 WBC (Bld) 86.7 % Normal [facility] Comment on above: Order Comment: Speci men Type: BLOOD SPECIMENOrdering Facility: [facility] Address: [address] [place] [address] Performed By: #### 5 7021-8 ####[facility] LABCLIA [id number] [place] [address] Nucleated RBC (Bld) [#/Vol] 10*3/uL Normal <0.01 [facility] Comment on above: Order Comment: Speci men Type: BLOOD SPECIMENOrdering Facility: [facility] Address: [address] [place] [address] Performed By: #### 5 7021-8 ####[facility] LABCLIA [id number] [place] [address] Nucleated RBC/100 WBC (Bld) [Ratio] 0.0 /100 WBC Normal [facility] Comment on above: Order Comment: Speci men Type: BLOOD SPECIMENOrdering Facility: [facility] Address: [address] [place] [address] Performed By: #### 5 7021-8 ####[facility] LABCLIA [id number] [place] [address] Platelet mean volume (Bld) [Entitic vol] 9.9 fL Normal 9.0-12.7 [facility] Comment on above: Order Comment: Speci men Type: BLOOD SPECIMENOrdering Facility: [facility] Address: [address] [place] [address] Performed By: #### 5 7021-8 ####[facility] LABCLIA [id number] [place] [address] Platelets (Bld) [#/Vol] 271 10*3/uL Normal 150-400 [facility] Comment on above: Order Comment: Speci men Type: BLOOD SPECIMENOrdering Facility: [facility] Address: [address] [place] [address] Performed By: #### 5 7021-8 ####[facility] LABIA [id number] [place] [address] RBC (Bld) [#/Vol] 4.34 10*6/uL Normal 3.90-5.20 [facility] Comment on above: Order Comment: Speci men Type: BLOOD SPECIMENOrdering Facility: [facility] Address: [address] [place] [address] Performed By: #### 5 7021-8 ####[facility] LABIA [id number] [place] [address] WBC (Bld) [#/Vol] 8.85 10*3/uL Normal 3.70-11.00 [facility] Comment on above: Order Comment: Speci men Type: BLOOD SPECIMENOrdering Facility: [facility] Address: [address] [place] [address] Performed By: #### 5 7021-8 ####[facility] LABIA [id number] [place] [address] CK SerPl-cCncon 05-20-2024 CK [Catalytic activity/Vol] 207 U/L High 42-196 [facility] Comment on above: Order Comment: Speci men Type: BLOOD SPECIMENOrdering Facility: [facility] Address: [address] [place] [address] Performed By: #### 2 157-6 ####[facility] BERTIN [id number] [address] [id number] [address] [place] CNOVon 05-20-2024 CNOV Office Visit (LOORRM ) JESUS WOLF ([id number]) 1955 F Date Time Provider Department 05/20/24 9:15 AM MARY MORALES During your visit today, we recorded the following information about you: Mary Morales MD 05/20/2024 10:30 AM Signed This document has been created with the use of voice recognition technology. It may contain inaccuracies: misspellings, inaccurate syntax or word sense that escaped review. The patient is seen at the request of self for evaluation and an opinion regarding treatment. A copy of this report will remain in the shared medical record CHIEF COMPLAINT: Jesus Wolf is a 69 year old female who presents today for new evaluation of left knee pain. HISTORY OF PRESENT ILLNESS: PAIN EVALUATION 05/20/2024 0735 05/20/2024 0927 Pain Level: 7 8 Pain Location: -- Knee-Left Description: Aching;Cutting;Sharp Sharp Duration Amount of Time: -- 5 Duration Units: Weeks Months Frequency: Intermittent Intermittent Intervention/Comfort measure: Reposition;Massage;Pos itioning Reposition;Relaxation; Positioning;Medication tylenol, voltaren gel HISTORY: Jesus Wolf has complains of left knee pain for under 6 months. She states there is no injury that occurred. The knee pain is anterior and medial. History of right total hip replacement. Significant past medical history with fibromyalgia, A-fib on Eliquis, lupus and RA on Plaquenil and Benlysta fusions every 2 months. No previous surgery on the knee and no previous orthopedic care. 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 No other musculoskeletal complaints ROS: REVIEW OF SYSTEMS: Constitutional: patient denies any recent fever or significant change in weight Cardiovascular: patient denies any chest pain at rest Respiratory: patient denies any shortness of breath or cough Gastrointestinal: patient denies any current abdominal discomfort Integumentary: patient denies any recent skin changes Musculoskeletal: as noted in the HPI Neurologic: as noted in the HPI Endocrine: patient denies a current diagnosis of diabetes Hematologic/Lymphatic: On DOAC Psychologic: negative for any recent depression or anxiety issues SOCIAL HISTORY: Tobacco Use: Never FAMILY HISTORY: FAMILY HISTORY Problem Relation Age of Onset Alzheimer's Disease Father Hypertension Father Cataract Mother Hypertension Mother Colon Cancer Mother Cataract Sister Hypertension Sister Colon Cancer Paternal Uncle ALLERGIES: ALLERGIES Allergen Reactions Dofetilide Other: See [...] spot in area of shot PAST MEDICAL HISTORY: PAST MEDICAL HISTORY Diagnosis Date Arrhythmia Atrial fibrillation (HCC) on coumadin Herniated intervertebral disk HTN (hypertension) Hyperlipemia Kidney disease MONI (obstructive sleep apnea) no longer using CPAP since 60 lb weight loss Other acute pancreatitis with uninfected necrosis SLE (systemic lupus erythematosus) ([facility]) Sleep apnea 07/29/2012 SOCIAL HISTORY: Tobacco Use: Never EXAMINATION: GENERAL: Appears healthy, well-nourished, no deformities. ORIENTATION: Alert and oriented to person place and time HABITUS: Normal GAIT: Antalgic to the left left knee exam: Chronic venous stasis skin changes bilaterally no effusion Varus alignment with partial correction Active 0 extension, flexion 120. central patellar tracking/mild to moderate patellofemoral crepitation Global knee pain most profound medially and patellofemoral stable to varus and valgus stresses. stable Anterior/posterior drawer. No pain with palpation of pes anserine bursa Calf soft and nontender. Hip exam- negative log roll, preserved ER/IR, no pain with axial loading NV intact L3-S1 with 2+ DP pulse. Obvious left foot arthritic deformity right knee exam: no effusion Neutral Alignment Active 0 extension, flexion 120. central patellar tracking/ no patellofemoral crepitation No Pain with patellar compression, no Pain with palpating medial compartment, no Pain with palpating lateral compartment. stable to varus and valgus stresses. Kelin is negative stable Anterior/posterior drawer. negative McMurrays No pain with palpation of pes anserine bursa Calf soft and nontender. RADIOGRAPHS: XR left knee obtained today and personally (more content not included)... Normal [facility] Comprehensive metabolic 2000 panelon 05-20-2024 Albumin [Mass/Vol] 4.4 g/dL Normal 3.9-4.9 [facility] Comment on above: Order Comment: Speci men Type: BLOOD SPECIMENOrdering Facility: [facility] Address: [address] [place] [address] Performed By: #### 2 4323-8 ####[facility] LABCLIA [id number] [place] [address] ALP [Catalytic activity/Vol] 135 U/L High 34-123 [facility] Comment on above: Order Comment: Speci men Type: BLOOD SPECIMENOrdering Facility: [facility] Address: [address] [place] [address] Performed By: #### 2 4323-8 ####[facility] LABCLIA [id number] [place] [address] ALT [Catalytic activity/Vol] 29 U/L Normal 7-38 [facility] Comment on above: Order Comment: Speci men Type: BLOOD SPECIMENOrdering Facility: [facility] Address: [address] [place] [address] Performed By: #### 2 4323-8 ####[facility] LABCLIA [id number] [place] [address] Anion gap [Moles/Vol] 10 mmol/L Normal 8-15 [facility] Comment on above: Order Comment: Speci men Type: BLOOD SPECIMENOrdering Facility: [facility] Address: [address] [place] [address] Performed By: #### 2 4323-8 ####[facility] LABCLIA [id number] [place] [address] AST [Catalytic activity/Vol] 29 U/L Normal 13-35 [facility] Comment on above: Order Comment: Speci men Type: BLOOD SPECIMENOrdering Facility: [facility] Address: [address] [place] [address] Performed By: #### 2 4323-8 ####[facility] LABCLIA [id number] [place] [address] Bilirubin [Mass/Vol] 0.5 mg/dL Normal 0.2-1.3 [facility] Comment on above: Order Comment: Speci men Type: BLOOD SPECIMENOrdering Facility: [facility] Address: [address] [place] [address] Performed By: #### 2 4323-8 ####[facility] LABCLIA [id number] [place] [address] Calcium [Mass/Vol] 9.8 mg/dL Normal 8.5-10.2 [facility] Comment on above: Order Comment: Speci men Type: BLOOD SPECIMENOrdering Facility: [facility] Address: [address] [place] [address] Performed By: #### 2 4323-8 ####[facility] LABCLIA [id number] [place] [address] Chloride [Moles/Vol] 105 mmol/L Normal 98-107 [facility] Comment on above: Order Comment: Speci men Type: BLOOD SPECIMENOrdering Facility: [facility] Address: [address] [place] [address] Performed By: #### 2 4323-8 ####[facility] LABCLIA [id number] [place] [address] CO2 [Moles/Vol] 25 mmol/L Normal 22-30 [facility] Comment on above: Order Comment: Speci men Type: BLOOD SPECIMENOrdering Facility: [facility] Address: [address] [place] [address] Performed By: #### 2 4323-8 ####[facility] LABCLIA [id number] [place] [address] Creatinine [Mass/Vol] 1.35 mg/dL High 0.58-0.96 [facility] Comment on above: Order Comment: Speci men Type: BLOOD SPECIMENOrdering Facility: [facility] Address: [address] [place] [address] Performed By: #### 2 4323-8 ####[facility] LABCLIA [id number] [place] [address] Creatinine and Glomerular filtration rate.predicted panel (S/P/Bld) 43 mL/min/1.73m??? Low >=60 [facility] Comment on above: Order Comment: Speci men Type: BLOOD SPECIMENOrdering Facility: [facility] Address: [address] [place] [address] Result Comment: Anna mated Glomerular Filtration Rate [...] actual GFR. Performed By: #### 2 4323-8 ####[facility] LABCLIA [id number] [place] [address] Glucose [Mass/Vol] 113 mg/dL High 74-99 [facility] Comment on above: Order Comment: Speci men Type: BLOOD SPECIMENOrdering Facility: [facility] Address: [address] [place] [address] Result Comment: The [place] [employer] (ADA) provides guidance for cutoff [...] Standards of Medical Care in Diabetes 2016, [place] [employer]. Diabetes Care. 2016.39(Suppl 1). Performed By: #### 2 4323-8 ####[facility] LABCLIA [id number] [place] [address] Potassium [Moles/Vol] 5.0 mmol/L Normal 3.7-5.1 [facility] Comment on above: Order Comment: Speci men Type: BLOOD SPECIMENOrdering Facility: [facility] Address: [address] [place] [address] Performed By: #### 2 4323-8 ####[facility] LABCLIA [id number] [place] [address] Protein [Mass/Vol] 6.9 g/dL Normal 6.3-8.0 [facility] Comment on above: Order Comment: Speci men Type: BLOOD SPECIMENOrdering Facility: [facility] Address: [address] [place] [address] Performed By: #### 2 4323-8 ####[facility] LABCLIA [id number] [place] [address] Sodium [Moles/Vol] 140 mmol/L Normal 136-144 [facility] Comment on above: Order Comment: Speci men Type: BLOOD SPECIMENOrdering Facility: [facility] Address: [address] [place] [address] Performed By: #### 2 4323-8 ####[facility] LABCLIA [id number] [place] [address] Urea nitrogen [Mass/Vol] 34 mg/dL High 7-21 [facility] Comment on above: Order Comment: Speci men Type: BLOOD SPECIMENOrdering Facility: [facility] Address: [address] [place] [address] Performed By: #### 2 4323-8 ####[facility] LABCLIA [id number] [place] [address] Large Joint Arthro/Inj: L kn ee jointon 05-20-2024 Mary Morales MD 05/20/2024 10:30 AM Large Joint Arthro/Inj: L knee joint Informed Consent Consent Obtained: Written [place] Protocol A moment to CARE was completed. SIGN IN Personnel directly involved with the procedure wore the appropriate PPE. Special Equipment: N/A Patient/Surrogate Stated/Verified: Patient name, Date of , Relevant allergies and Intended procedure TIME OUT Intended patient and procedure match the source document(s). Consent documented and matches the intended procedure. Relevant labs, photos, and/or imaging studies have been reviewed. Correct side/site marked and visible. Medications required for procedure verified. No fire risk assessment and interventions applicable. No implant(s) inserted. 05/20/2024 10:28 AM The procedure site was prepped in the usual sterile fashion. Site: L knee joint Medications: 40 mg triamcinolone acetonide 40 mg/mL Anesthetics: 4 mL lidocaine (PF) 10 mg/mL (1 %) Outcome: Tolerated well, no immediate complications Post-injection instructions were reviewed with the patient and the patient voiced understanding of these instructions. SIGN OUT No specimen collected. No instruments, equipment or retained foreign bodies applicable. Post-procedure follow-up management communicated and Plan of Care Visit completed when applicable [facility] XR KNEE SPECIFY 1V LTon 10- XR KNEE SPECIFY 1V LT * * *Final Report* * * DATE OF EXAM: May 20 2024 9:26AM LZX 5210 - XR KNEE SPECIFY 1V LT / PROCEDURE REASON: Left knee pain, unspecified chronicity * * * * Physician Interpretation * * * * EXAMINATION / TECHNIQUE: XR KNEE SPECIFY 1V LT HISTORY: pain lt knee Left knee pain, unspecified chronicity COMPARISON: 03/15/2024. RESULT: See Impression IMPRESSION: No acute fracture or dislocation. Mild patellofemoral osteoarthritis. Trans Router: PSCB Transcribe Date/Time: May 20 2024 9:27A Dictated by : JENNIFER ZAZUETA MD This examination was interpreted and the report reviewed and electronically signed by: JENNIFER ZAZUETA MD on May 20 2024 9:27AM EST [id number] Normal [facility] XR Knee - left Single viewon 05-20-2024 IMPRESSION: No acute fracture or dislocation. Mild patellofemoral osteoarthritis. Trans Router: PSCB Transcribe Date/Time: May 20 2024 9:27A Dictated by : JENNIFER ZAZUETA MD This examination was interpreted and the report reviewed and electronically signed by: JENNIFER ZAZUETA MD on May 20 2024 9:27AM EST DIVISION OF RADIOLOGY * * *Final Report* * * DATE OF EXAM: May 20 2024 9:26AM LZX 5210 - XR KNEE SPECIFY 1V LT / PROCEDURE REASON: Left knee pain, unspecified chronicity * * * * Physician Interpretation * * * * EXAMINATION / TECHNIQUE: XR KNEE SPECIFY 1V LT HISTORY: pain lt knee Left knee pain, unspecified chronicity COMPARISON: 03/15/2024. RESULT: See Impression DIVISION OF RADIOLOGY Provider, [facility] - 05/20/2024 * * *Final Report* * * DATE OF EXAM: May 20 2024 9:26AM LZX 5210 - XR KNEE SPECIFY 1V LT / PROCEDURE REASON: Left knee pain, unspecified chronicity * * * * Physician Interpretation * * * * EXAMINATION / TECHNIQUE: XR KNEE SPECIFY 1V LT HISTORY: pain lt knee Left knee pain, unspecified chronicity COMPARISON: 03/15/2024. RESULT: See Impression IMPRESSION IMPRESSION: No acute fracture or dislocation. Mild patellofemoral osteoarthritis. Trans Router: PSCB Transcribe Date/Time: May 20 2024 9:27A Dictated by : JENNIFER ZAZUETA MD This examination was interpreted and the report reviewed and electronically signed by: JENNIFER ZAZUETA MD on May 20 2024 9:27AM EST [facility] Radiology Study observation (narrative) [facility] XR Knee - left Single viewOr dered By: [facility]cf Provider on 05-20-2024 [facility] CNOVon 05-18-2024 CNOV Office Visit (RHEUMN ) JESUS WOLF ([id number]) 1955 F Date Time Provider Department 05/18/24 2:30 PM NADEGE MURPHY RHEUMN During your visit today, we recorded the following information about you: Temperature Pulse Blood pressure Weight 97 degrees 70/minute 131/63 120.3 kg Nadege Murphy DO 05/18/2024 3:13 PM Signed [facility] DEPARTMENT OF RHEUMATIC AND IMMUNOLOGIC DISEASES SUBJECTIVE: Reason for visit: SLE Brief History of Present Illness: Jesus Holguin Luciano is a 69 year old female with HTN, HLD, HFpEF, [...] 1500 mg daily because of recurrent URI March 2020 admitted with CHF A. fib [...] Had morning stiffness which lasts 15-20 minutes. 01/2023 mycophenolate mofetil was stopped. 12/2023: She is able to tell when due for BEL every 3 months, has increased fatigue prior to her infusions. Today she is even worst on month 3 with increased joint pain and worsening fatigue. She notably gets 60 mg IVMP with her infusions due to eye swelling that happened when she was first infused. At that time BEL was increased to every 2 month infusions. She feels well on this regimen. An tell when she is due for her infusions based on increased aches and fatigue. Considering left knee replacement based on severe osteoarthritis on XR. Current Medications: HCQ 400 mg once daily Belimumab infusions every 2 months with 40 mg IVMP PMHx: PAST MEDICAL HISTORY Diagnosis Date Arrhythmia Atrial fibrillation (HCC) on coumadin Herniated intervertebral disk HTN (hypertension) Hyperlipemia Kidney disease MONI (obstructive sleep apnea) no longer using CPAP since 60 lb weight loss Other acute pancreatitis with uninfected necrosis SLE (systemic lupus erythematosus) (HCC) Sleep apnea 07/29/2012 PSHx: PAST SURGICAL HISTORY Procedure Laterality Date APPENDECTOMY CARPAL TUNNEL RIGHT WRIST surgical correction COLONOSCOPY 05/10/2019 [facility] COLONOSCOPY GEN ANES 07/23/2020 Dr. Frances/Diverticulosis/H emorrhoids/ Ulcerative Colitis/Rpt in 2 yrs. COLONOSCOPY SCREENING 03/2023 EGD EUS 01/11/2020 [facility] LASIK Right prior to 1999 MRI PANC/JEANIE WO/W IVCON 12/20/2019 OVARIAN CYSTECTOMY PAST SURGICAL HISTORY OF 07/2013 bilateral foot procedure, Sherry PAST SURGICAL HISTORY OF Ablation X2 TONSILLECTOMY HX MEDICATIONS: alendronate (FOSAMAX) 70 mg tablet Take 1 tablet by mouth one time a week. In the morning with a full (more content not included)... Normal [facility] ECG 12-LEADon 05-16-2024 ECG 12-LEAD Ventricular Rate 65 Atrial Rate 65 P-R Interval 186 QRS Duration 106 Q-T Interval 470 QTC Calculation(Bazett) 488 P Jefferson 80 R Jefferson 63 T Jefferson 78 QRS Count 11 Q Onset 220 P Onset 127 P Offset 180 T Offset 455 QTC Fredericia 482 Diagnosis Normal sinus rhythm Normal ECG When compared with ECG of 15-FEB-2024 16:45, No significant change was found Confirmed by Julius Eddy ([id number]) on 05/18/2024 11:22:41 AM Normal [facility] ACT Coag (Bld)on 04-07-2024 Interpretation and review of laboratory results Abnormal [facility] Activated clotting timeon ACT Coag (Bld) 178 s High 82-174 [facility] Comment on above: Result Comment: Targ et ACT range will vary based on the patient population, clinical status, and surgical intervention occurring. Performed By: #### 3 [id number] #### BELKIS Mooney ([id number]) [facility] ([facility]) [address] [place] [address] CT WATCHMAN FULL CONTRASTon 04-07-2024 CT WATCHMAN FULL CONTRAST Interpreted By: Franck Sanches, and Lisseth Garcia STUDY: CT WATCHMAN FULL CONTRAST; 04/07/2024 1:01 pm INDICATION: Signs/Symptoms:Pre Watchman sizing and thrombus detection. COMPARISON: None. ACCESSION NUMBER(S): [id number] ORDERING CLINICIAN: JUAN CHINO TECHNIQUE: Using multi-detector CT technology, axial, sequential imaging (at 45% phase of cardiac size) with prospective gating was performed of the chest following the intravenous administration of 70ml. Additional delayed axial, sequential imaging with prospective gating of chest was performed for better evaluation of left atrial appendage thrombus. For optimization of anatomic evaluation, multiplanar reconstruction, maximum intensity projections, and advanced 3-D off-line postprocessing were performed on a dedicated stand-alone workstation under the direct supervision of the interpreting physician. FINDINGS: POTENTIAL STUDY LIMITATIONS: None CORONARY ARTERIES: CORONARY ANATOMY: There is normal origin of the coronary arteries. Right dominant system. Mild coronary artery calcifications are seen. Please note,the study is not optimized for evaluation of coronary arteries. CARDIAC CHAMBERS: The cardiac chambers demonstrate normal atrioventricular and ventriculoarterial concordance, and systemic and pulmonary venous return. LEFT ATRIUM: Significantly dilated (36.29-cm2). There is no evidence of left atrium or left atrial appendage thrombus. The left atrial appendage orifice is oval in shape, measuring 4.4 Cm x 3.1 Cm in orthogonal dimensions and with an area of 14.64 Cm. sq. Left atrial appendage depth is 6.5 Cm. RIGHT ATRIUM: Normal size (27-cm2) VENTRICLES: The left and right ventricles appear normal in appearance, although accurate size measurements are not possible on systolic phase imaging. INTERATRIAL SEPTUM: Intact. INTERVENTRICULAR SEPTUM: Intact. AORTIC VALVE: The aortic valve is trileaflet in morphology. Calcification of the aortic valve. MITRAL VALVE: There areprominent mitral annular calcifications seen. Otherwise, no valvular thickening or calcifications. THORACIC AORTA: Aneurysmal dilatation of the ascending aorta measuring 4.6 cm The thoracic aorta normal in course and caliber.There is no evidence for acute aortic pathology, such as dissection, intramural hematoma, or contained rupture. The aortic arch is not included on this examination. PULMONARY ARTERY Main pulmonary artery: 4 cm Right pulmonary artery: 1.5 cm Left pulmonary artery: 2.4 cm PERICARDIUM: There is no pericardial effusion seen. CHEST: The trachea and central airways are patent. No endobronchial lesion is seen. The bilateral lungs are clear without evidence of focal consolidation, pleural effusion, or pneumothorax. No evidence of lymphadenopathy within included mediastinum. Visualized esophagus appears within normal limits as seen. UPPER ABDOMEN: The visualized subdiaphragmatic structures demonstrate no remarkable findings. Small hiatal hernia. CHEST WALL AND OSSEOUS STRUCTURES: Visualized chest wall is within normal limits. No acute osseous pathology.There are no suspicious osseous lesions within included chest.Chronic degenerative changes noted. IMPRESSION: 1. No evidence of left atrial/left atrial appendage thrombus. 2. The left atrial appendage orifice is oval in shape, measuring 4.4cm x 3.1cm in orthogonal dimensions and with an area of 14.64 cm. sq. Left atrial appendage depth is 6.54 Cm. 3. Mild coronary artery calcifications are seen. Please note,the study is not optimized for evaluation of coronary arteries. 4. Biatrial enlargement. 5. Severe mitral annular calcification 6. Aneurysmal dilatation of the ascending aorta measuring 4.6 cm. This measurement is similar to previous echocardiogram from 09/08/2019. Recommend follow-up CT angio and or MRA of the chest within 12 months for further characterization. 7. 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 Correlate clinically with elevated right-sided filling pressures. Consider surveillance imaging as described above. MACRO: None Signed by: Franck Sanches 04/07/2024 3:09 PM Dictation workstation: [id number] [facility] - Coagulationon 0 04-07-2024 ACT Coag (Bld) 178 s [facility] Comment on above: Target ACT range leeann l vary based on the patient population, clinical status, and surgical intervention occurring. No Panel Informationon 04-07 1. No evidence of le ft atrial/left atrial appendage thrombus. 2. The left atrial appendage orifice is oval in shape, measuring 4.4cm x 3.1cm in orthogonal dimensions and with an area of 14.64 cm. sq. Left atrial appendage depth is 6.54 Cm. 3. Mild coronary artery calcifications are seen. Please note,the study is not optimized for evaluation of coronary arteries. 4. Biatrial enlargement. 5. Severe mitral annular calcification 6. Aneurysmal dilatation of the ascending aorta measuring 4.6 cm. This measurement is similar to previous echocardiogram from 09/08/2019. Recommend follow-up CT angio and or MRA of the chest within 12 months for further characterization. 7. 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 Correlate clinically with elevated right-sided filling pressures. Consider surveillance imaging as described above. MACRO: None Signed by: Franck Sanches 04/07/2024 3:09 PM Dictation workstation: [id number] [id number] Interpreted By: Franck Sanches, and Lisseth Garcia STUDY: CT WATCHMAN FULL CONTRAST; 04/07/2024 1:01 pm INDICATION: Signs/Symptoms:Pre Watchman sizing and thrombus detection. COMPARISON: None. ACCESSION NUMBER(S): [id number] ORDERING CLINICIAN: JUAN CHINO TECHNIQUE: Using multi-detector CT technology, axial, sequential imaging (at 45% phase of cardiac size) with prospective gating was performed of the chest following the intravenous administration of 70ml. Additional delayed axial, sequential imaging with prospective gating of chest was performed for better evaluation of left atrial appendage thrombus. For optimization of anatomic evaluation, multiplanar reconstruction, maximum intensity projections, and advanced 3-D off-line postprocessing were performed on a dedicated stand-alone workstation under the direct supervision of the interpreting physician. FINDINGS: POTENTIAL STUDY LIMITATIONS: None CORONARY ARTERIES: CORONARY ANATOMY: There is normal origin of the coronary arteries. Right dominant system. Mild coronary artery calcifications are seen. Please note,the study is not optimized for evaluation of coronary arteries. CARDIAC CHAMBERS: The cardiac chambers demonstrate normal atrioventricular and ventriculoarterial concordance, and systemic and pulmonary venous return. LEFT ATRIUM: Significantly dilated (36.29-cm2). There is no evidence of left atrium or left atrial appendage thrombus. The left atrial appendage orifice is oval in shape, measuring 4.4 Cm x 3.1 Cm in orthogonal dimensions and with an area of 14.64 Cm. sq. Left atrial appendage depth is 6.5 Cm. RIGHT ATRIUM: Normal size (27-cm2) VENTRICLES: The left and right ventricles appear normal in appearance, although accurate size measurements are not possible on systolic phase imaging. INTERATRIAL SEPTUM: Intact. INTERVENTRICULAR SEPTUM: Intact. AORTIC VALVE: The aortic valve is trileaflet in morphology. Calcification of the aortic valve. MITRAL VALVE: There areprominent mitral annular calcifications seen. Otherwise, no valvular thickening or calcifications. THORACIC AORTA: Aneurysmal dilatation of the ascending aorta measuring 4.6 cm The thoracic aorta normal in course and caliber.There is no evidence for acute aortic pathology, such as dissection, intramural hematoma, or contained rupture. The aortic arch is not included on this examination. PULMONARY ARTERY Main pulmonary artery: 4 cm Right pulmonary artery: 1.5 cm Left pulmonary artery: 2.4 cm PERICARDIUM: There is no pericardial effusion seen. CHEST: The trachea and central airways are patent. No endobronchial lesion is seen. The bilateral lungs are clear without evidence of focal consolidation, pleural effusion, or pneumothorax. No evidence of lymphadenopathy within included mediastinum. Visualized esophagus appears within normal limits as seen. UPPER ABDOMEN: The visualized subdiaphragmatic structures demonstrate no remarkable findings. Small hiatal hernia. CHEST WALL AND OSSEOUS STRUCTURES: Visualized chest wall is within normal limits. No acute osseous pathology.There are no suspicious osseous lesions within included chest.Chronic degenerative changes noted. [facility] Franck Sanches MD PhD - 04/07/2024 Interpreted By: Franck Sanches and Amoah Joseph STUDY: CT WATCHMAN FULL CONTRAST; 04/07/2024 1:01 pm INDICATION: Signs/Symptoms:Pre Watchman sizing and thrombus detection. COMPARISON: None. ACCESSION NUMBER(S): [id number] ORDERING CLINICIAN: JUAN CHINO TECHNIQUE: Using multi-detector CT technology, axial, sequential imaging (at 45% phase of cardiac size) with prospective gating was performed of the chest following the intravenous administration of 70ml. Additional delayed axial, sequential imaging with prospective gating of chest was performed for better evaluation of left atrial appendage thrombus. For optimization of anatomic evaluation, multiplanar reconstruction, maximum intensity projections, and advanced 3-D off-line postprocessing were performed on a dedicated stand-alone workstation under the direct supervision of the interpreting physician. FINDINGS: POTENTIAL STUDY LIMITATIONS: None CORONARY ARTERIES: CORONARY ANATOMY: There is normal origin of the coronary arteries. Right dominant system. Mild coronary artery calcifications are seen. Please note,the study is not optimized for evaluation of coronary arteries. CARDIAC CHAMBERS: The cardiac chambers demonstrate normal atrioventricular and ventriculoarterial concordance, and systemic and pulmonary venous return. LEFT ATRIUM: Significantly dilated (36.29-cm2). There is no evidence of left atrium or left atrial appendage thrombus. The left atrial appendage orifice is oval in shape, measuring 4.4 Cm x 3.1 Cm in orthogonal dimensions and with an area of 14.64 Cm. sq. Left atrial appendage depth is 6.5 Cm. RIGHT ATRIUM: Normal size (27-cm2) VENTRICLES: The left and right ventricles appear normal in appearance, although accurate size measurements are not possible on systolic phase imaging. INTERATRIAL SEPTUM: Intact. INTERVENTRICULAR SEPTUM: Intact. AORTIC VALVE: The aortic valve is trileaflet in morphology. Calcification of the aortic valve. MITRAL VALVE: There areprominent mitral annular calcifications seen. Otherwise, no valvular thickening or calcifications. THORACIC AORTA: Aneurysmal dilatation of the ascending aorta measuring 4.6 cm The thoracic aorta normal in course and caliber.There is no evidence for acute aortic pathology, such as dissection, intramural hematoma, or contained rupture. The aortic arch is not included on this examination. PULMONARY ARTERY Main pulmonary artery: 4 cm Right pulmonary artery: 1.5 cm Left pulmonary artery: 2.4 cm PERICARDIUM: There is no pericardial effusion seen. CHEST: The trachea and central airways are patent. No endobronchial lesion is seen. The bilateral lungs are clear without evidence of focal consolidation, pleural effusion, or pneumothorax. No evidence of lymphadenopathy within included mediastinum. Visualized esophagus appears within normal limits as seen. UPPER ABDOMEN: The visualized subdiaphragmatic structures demonstrate no remarkable findings. Small hiatal hernia. CHEST WALL AND OSSEOUS STRUCTURES: Visualized chest wall is within normal limits. No acute osseous pathology.There are no suspicious osseous lesions within included chest.Chronic degenerative changes noted. IMPRESSION: 1. No evidence of left atrial/left atrial appendage thrombus. 2. The left atrial appendage orifice is oval in shape, measuring 4.4cm x 3.1cm in orthogonal dimensions and with an area of 14.64 cm. sq. Left atrial appendage depth is 6.54 Cm. 3. Mild coronary artery calcifications are seen. Please note,the study is not optimized for evaluation of coronary arteries. 4. Biatrial enlargement. 5. Severe mitral annular calcification 6. Aneurysmal dilatation of the ascending aorta measuring 4.6 cm. This measurement is similar to previous echocardiogram from 09/08/2019. Recommend follow-up CT angio and or MRA of the chest within 12 months for further characterization. 7. 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 Correlate clinically with elevated right-sided filling pressures. Consider surveillance imaging as described above. MACRO: None Signed by: Franck Sanches 04/07/2024 3:09 PM Dictation workstation: [id number] [facility] Work Phone: Radiology Study observation (narrative) [facility] Work Phone: No Panel InformationOrdered By: Franck Sanches on 04-07-2024 [facility] Work Phone: Basic metabolic 2000 panelon 03-15-2024 Anion gap [Moles/Vol] 11 mmol/L 8 - 15 mmol/L [facility] Calcium [Mass/Vol] 9.3 mg/dL 8.5 - 10. 2 mg/dL [facility] Chloride [Moles/Vol] 105 mmol/L 98 - 10 7 mmol/L [facility] CO2 [Moles/Vol] 27 mmol/L 22 - 30 mmol/L [facility] Creatinine [Mass/Vol] 1.14 mg/dL High 0.58 - 0.96 mg/dL [facility] GFR/1.73 sq M.predicted among non-blacks MDRD (S/P/Bld) [Vol rate/Area] 53 mL/min/{1.73_m2} Low - PINF [facility] Comment on above: Estimated Glomerular Filtration Rate (eGFR) is calculated using the 2020 CKD-EPI creatinine equation. This equation utilizes serum creatinine, sex, and age as parameters. The creatinine assay has traceable calibration to isotope dilution-mass spectrometry. Refer to KDIGO guidelines for clinical interpretation. In patients with unstable renal function, e.g. those with acute kidney injury, the eGFR may not accurately reflect actual GFR. Glucose [Mass/Vol] 89 mg/dL 74 - 99 mg/dL [facility] Comment on above: The [place] Diab[employer] Association (ADA) provides guidance for cutoff values [...] Standards of Medical Care in Diabetes 2016, [place] [employer]. Diabetes Care. 2016.39(Suppl 1). Interpretation and review of laboratory results Abnormal [facility] Potassium [Moles/Vol] 4.5 mmol/L 3.7 - 5.1 mmol/L [facility] Sodium [Moles/Vol] 143 mmol/L 136 - 144 mmol/L [facility] Urea nitrogen [Mass/Vol] 18 mg/dL 7 - 21 mg/dL [facility] DXA Skeletal system.axial Vi ews for bone density and vertebral fractureOrdered By: Ccf Provider on 03-15-2024 LOWEST T-SCORE -1.8 [facility] DXA Skeletal system.axial Vi ews for bone density and vertebral fractureon 03-15-2024 IMPRESSION: THE LOWEST T-SCORE IS -1.8 IN THE LEFT HIP 1) DIAGNOSIS (based on BMD alone): OSTEOPENIA - Caution: Medical conditions other than osteoporosis may cause low bone density, such as osteomalacia or renal osteodystrophy. Clinical correlation is necessary. 2) FRACTURE RISK (based on BMD alone) INCREASED - Caution: Fracture risk may be increased independent of BMD in patients with corticosteroid use, age greater than 65 years, or a history of prior fragility fracture. - FRAX was not calculated: bisphosphonate currently or within the last 2 years RECOMMENDATIONS: Follow-up in 2 years or as clinically indicated. Patients that are taking corticosteroids, are transplant recipients or have hyperparathyroidism should have annual follow-up. Follow-up scans should always be done on the same machine for accurate comparison. FOR MORE INFORMATION ABOUT DIAGNOSIS AND TREATMENT: [facility] Osteoporosis and Metabolic Bone Disease:? www.ccf.org/arthritis/ osteo National Osteoporosis Foundation:? www.nof.org International Society of Clinical Densitometry www.iscd.org Trans Router: 030810 Transcribe Date/Time: Mar 15 2024 2:24P Dictated by : CHIKIS GARCIA MD This examination was interpreted and the report reviewed and electronically signed by: CHIKIS GARCIA MD on Mar 15 2024 2:59PM [facility] DIVISION OF RADIOLOGY * * *Final Report* * * DATE OF EXAM: Mar 15 2024 2:20PM B 0802 - BD VFA WITH DXA - AXIAL SKELETON / PROCEDURE REASON: multiple diagnoses * * * * Physician Interpretation * * * * EXAMINATION: DXA BONE DENSITOMETRY BD VFA WITH DXA - AXIAL SKELETON PATIENT DEMOGRAPHICS: Age: 69 years, Gender: Female SCANNER INFORMATION: DXA Model: A21 [employer]ar [employer] (S/N: [id number]) Date Scanned: 03/15/2024 2:20 PM CLINICAL HISTORY: DIAGNOSTIC Osteopenia, unspecified location S/P parathyroidectomy S/P parathyroidectomy halfway (current) use of 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. RISK FACTORS FOR OSTEOPOROSIS AND ASSOCIATED FRACTURES REPORTED BY THIS PATIENT: Please refer to Bone Health Questionnaire in the EMR CURRENT THERAPY: Please refer to Bone Health Questionnaire in the EMR TECHNICAL LIMITATIONS: Degenerative disease of the spine right hip surgery RESULTS: Lumbar Spine (L1, L2, L3): Total BMD: 1.336 g/cm2, T-score: 1.4 , Z-score: 3.0 Left Femoral Neck: 0.789 g/cm2, T-score -1.8, Z-score -0.2 Left Total Hip: 0.923 g/cm2, T-score -0.7 , Z-score 0.7 No comparison data - the patient has not had a previous bone density in the [facility] or the previous bone density was performed on a different DXA machine (new, updated model or different location) within the [facility]. VERTEBRAL FRACTURE ASSESSMENT Indication for VFA: Physician ordered Levels visualized: T6-L5 Results: No fracture identified Presence of a single vertebral fracture increases subsequent global fracture risk, multiple fractures significantly increase fracture risk. TRABECULAR BONE ASSESSMENT TBS not performed: BMI outside recommended range for calculation of TBS. DIVISION OF RADIOLOGY Provider, [facility] - 03/15/2024 * * *Final Report* * * DATE OF EXAM: Mar 15 2024 2:20PM [facility] 0802 - BD VFA WITH DXA - AXIAL SKELETON / PROCEDURE REASON: multiple diagnoses * * * * Physician Interpretation * * * * EXAMINATION: DXA BONE DENSITOMETRY BD VFA WITH DXA - AXIAL SKELETON PATIENT DEMOGRAPHICS: Age: 69 years, Gender: Female SCANNER INFORMATION: DXA Model: A21 Credit Karmay (S/N: [id number]) Date Scanned: 03/15/2024 2:20 PM CLINICAL HISTORY: DIAGNOSTIC Osteopenia, unspecified location S/P parathyroidectomy S/P parathyroidectomy halfway (current) use of 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. RISK FACTORS FOR OSTEOPOROSIS AND ASSOCIATED FRACTURES REPORTED BY THIS PATIENT: Please refer to Bone Health Questionnaire in the EMR CURRENT THERAPY: Please refer to Bone Health Questionnaire in the EMR TECHNICAL LIMITATIONS: Degenerative disease of the spine right hip surgery RESULTS: Lumbar Spine (L1, L2, L3): Total BMD: 1.336 g/cm2, T-score: 1.4 , Z-score: 3.0 Left Femoral Neck: 0.789 g/cm2, T-score -1.8, Z-score -0.2 Left Total Hip: 0.923 g/cm2, T-score -0.7 , Z-score 0.7 No comparison data - the patient has not had a previous bone density in the [facility] or the previous bone density was performed on a different DXA machine (new, updated model or different location) within the [facility]. VERTEBRAL FRACTURE ASSESSMENT Indication for VFA: Physician ordered Levels visualized: T6-L5 Results: No fracture identified Presence of a single vertebral fracture increases subsequent global fracture risk, multiple fractures significantly increase fracture risk. TRABECULAR BONE ASSESSMENT TBS not performed: BMI outside recommended range for calculation of TBS. IMPRESSION IMPRESSION: THE LOWEST T-SCORE IS -1.8 IN THE LEFT HIP 1) DIAGNOSIS (based on BMD alone): OSTEOPENIA - Caution: Medical conditions other than osteoporosis may cause low bone density, such as osteomalacia or renal osteodystrophy. Clinical correlation is necessary. 2) FRACTURE RISK (based on BMD alone) INCREASED - Caution: Fracture risk may be increased independent of BMD in patients with corticosteroid use, age greater than 65 years, or a history of prior fragility fracture. - FRAX was not calculated: bisphosphonate currently or within the last 2 years RECOMMENDATIONS: Follow-up in 2 years or as clinically indicated. Patients that are taking corticosteroids, are transplant recipients or have hyperparathyroidism should have annual follow-up. Follow-up scans should always be done on the same machine for accurate comparison. FOR MORE INFORMATION ABOUT DIAGNOSIS AND TREATMENT: [facility]oporosis and Metabolic Bone Disease:? www.ccf.org/arthritis/ osteo National Osteoporosis Foundation:? www.nof.org International Society of Clinical Densitometry www.iscd.org Trans Router: [id number] Transcribe Date/Time: Mar 15 2024 2:24P Dictated by : CHIKIS GARCIA MD This examination was interpreted and the report reviewed and electronically signed by: CHIKIS GARCIA MD on Mar 15 2024 2:59PM EST [facility] No Panel Informationon 03-15 Radiology Study observation (narrative) [facility] XR Knee - left 4 Viewson IMPRESSION: Severe osteoarthritis left knee and small joint effusion Trans Router: MILLER Transcribe Date/Time: Mar 15 2024 9:13P Dictated by : CHIKIS GARCIA MD This examination was interpreted and the report reviewed and electronically signed by: CHIKIS GARCIA MD on Mar 15 2024 9:13PM EST DIVISION OF RADIOLOGY * * *Final Report* * * DATE OF EXAM: Mar 15 2024 3:40PM AOX 5202 - XR KNEE 4V AP/PA BOTH+LAT/HELLEN LT / PROCEDURE REASON: multiple diagnoses * * * * Physician Interpretation * * * * X-RAYS LEFT KNEE HISTORY: pain. 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 COMPARISON: None RESULT: Osteoarthritis left knee, severe in the medial compartment. Small left knee joint effusion is present. No fracture or dislocation is identified. DIVISION OF RADIOLOGY Provider, [facility] - 03/15/2024 * * *Final Report* * * DATE OF EXAM: Mar 15 2024 3:40PM AOX 5202 - XR KNEE 4V AP/PA BOTH+LAT/HELLEN LT / PROCEDURE REASON: multiple diagnoses * * * * Physician Interpretation * * * * X-RAYS LEFT KNEE HISTORY: pain. Osteopenia of multiple sites S/P parathyroidectomy S/P parathyroidectomy halfway (current) use of 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 TECHNIQUE: 3 views of the left knee. COMPARISON: None RESULT: Osteoarthritis left knee, severe in the medial compartment. Small left knee joint effusion is present. No fracture or dislocation is identified. IMPRESSION IMPRESSION: Severe osteoarthritis left knee and small joint effusion Trans Router: MILLER Transcribe Date/Time: Mar 15 2024 9:13P Dictated by : CHIKIS GARCIA MD This examination was interpreted and the report reviewed and electronically signed by: CHIKIS GARCIA MD on Mar 15 2024 9:13PM EST [facility] XR Knee - left 4 ViewsOrdere d By: [facility] Provider on 03-15-2024 [facility] ECG 12-LEADon 02-15-2024 ECG 12-LEAD Ventricular Rate 69 Atrial Rate 69 P-R Interval 180 QRS Duration 116 Q-T Interval 470 QTC Calculation(Bazett) 503 P Jefferson 73 R Jefferson 44 T Jefferson 72 QRS Count 12 Q Onset 220 P Onset 130 P Offset 184 T Offset 455 QTC Fredericia 492 Diagnosis Normal sinus rhythm Prolonged QT Abnormal ECG When compared with ECG of 16-NOV-2023 16:03, Sinus rhythm has replaced Wide QRS tachycardia Vent. rate has decreased BY 69 BPM Confirmed by Julius Eddy ([id number]) on 02/22/2024 8:57:23 AM Normal [facility] Basic metabolic 2000 panelon 01-04-2024 Anion gap [Moles/Vol] 12 mmol/L Normal 10-20 [facility] Comment on above: Performed By: #### 2 4321-2 #### DONAL QUINN ([id number]) [facility] ([facility]) [address] [place] [address] 65871 Calcium [Mass/Vol] 9.6 mg/dL Normal 8.6-10.3 [facility] Comment on above: Performed By: #### 2 4321-2 #### PARVEZIBRENEE QUINN ([id number]) [facility] ([facility]) [address] [place] [address] 54166 Chloride [Moles/Vol] 105 mmol/L Normal 98-107 [facility] Comment on above: Performed By: #### 2 4321-2 #### DONAL QUINN ([id number]) [facility] ([facility]) [address] [place] [address] 87561 CO2 [Moles/Vol] 29 mmol/L Normal 21-32 [facility] Comment on above: Performed By: #### 2 4321-2 #### ANAIBRENEE CARLOS DEMARCUS ([id number]) [facility] ([facility]) [address] [place] [address] Creatinine [Mass/Vol] 0.99 mg/dL Normal 0.50-1.05 [facility] Comment on above: Performed By: #### 2 4321-2 #### PARVEZIBRENEE CARLOS DEMARCUS ([id number]) [facility] ([facility]) [address] [place] [address] 68319 Glomerular filtration rate/1.73 sq M.predicted 63 mL/min/1.73m*2 Normal >60 [facility] Comment on above: Result Comment: Calc ulations of estimated GFR are performed using the 2020 CKD-EPI Study Refit equation without the race variable for the IDMS-Traceable creatinine methods. https://jasn.asnjournals.org/content/early//ASN.2020 829501 Performed By: #### 2 4321-2 #### PARVEZIBRENEE CAVAZOS RIO DEMARCUS ([id number]) [facility] ([facility]) [address] [place] [address] 83078 Glucose [Mass/Vol] 90 mg/dL Normal 74-99 [facility] Comment on above: Performed By: #### 2 4321-2 #### PARVEZIBRENEE QUINN ([id number]) [facility] ([facility]) [address] [place] [address] 00918 Potassium [Moles/Vol] 4.5 mmol/L Normal 3.5-5.3 [facility] Comment on above: Performed By: #### 2 4321-2 #### ANAIBELIWENDY CARLOS DEMARCUS ([id number]) [facility] ([facility]) [address] [place] [address] 75697 Sodium [Moles/Vol] 141 mmol/L Normal 136-145 [facility] Comment on above: Performed By: #### 2 4321-2 #### PARVEZIBRENEE CARLOS DEMARCUS ([id number]) [facility] ([facility]) [address] [place] [address] 58624 Urea nitrogen [Mass/Vol] 24 mg/dL High 6-23 [facility] Comment on above: Performed By: #### 2 4321-2 #### DONAL QUINN ([id number]) [facility] ([facility]) [address] [place] [address] CBC panel Auto (Bld)on 01-03 Erythrocyte distribution width (RBC) [Ratio] 12.7 % Normal 11.5-14.5 [facility] Comment on above: Performed By: #### 5 8410-2 #### DONAL QUINN ([id number]) [facility] ([facility]) [address] [place] [address] Hematocrit (Bld) [Volume fraction] 43.9 % Normal 36.0-46.0 [facility] Comment on above: Performed By: #### 5 8410-2 #### DONAL QUINN ([id number]) [facility] ([facility]) [address] [place] [address] Hemoglobin (Bld) [Mass/Vol] 14.5 g/dL Normal 12.0-16.0 [facility] Comment on above: Performed By: #### 5 8410-2 #### DONAL QUINN ([id number]) [facility] ([facility]) [address] [place] [address] MCH (RBC) [Entitic mass] 32.2 pg Normal 26.0-34.0 [facility] Comment on above: Performed By: #### 5 8410-2 #### DONAL QUINN ([id number]) [facility] ([facility]) [address] [place] [address] 28983 MCHC (RBC) [Mass/Vol] 33.0 g/dL Normal 32.0-36.0 [facility] Comment on above: Performed By: #### 5 8410-2 #### DONAL QUINN ([id number]) [facility] ([facility]) [address] [place] [address] MCV (RBC) [Entitic vol] 97 fL Normal 80-100 [facility] Comment on above: Performed By: #### 5 8410-2 #### DONAL QUINN ([id number]) [facility] ([facility]) [address] [place] [address] 00721 Nucleated RBC/100 WBC (Bld) [Ratio] 0.0 /100 WBCs Normal 0.0-0.0 [facility] Comment on above: Performed By: #### 5 8410-2 #### DONAL QUINN ([id number]) [facility] ([facility]) [address] [place] [address] 29276 Platelets (Bld) [#/Vol] 258 x10*3/uL Normal 150-450 [facility] Comment on above: Performed By: #### 5 8410-2 #### DONAL QUINN ([id number]) [facility] ([facility]) [address] [place] [address] 53773 RBC (Bld) [#/Vol] 4.51 x10*6/uL Normal 4.00-5.20 [facility] Comment on above: Performed By: #### 5 8410-2 #### DONAL QUINN ([id number]) [facility] ([facility]) [address] [place] [address] 52856 WBC (Bld) [#/Vol] 6.9 x10*3/uL Normal 4.4-11.3 [facility] Comment on above: Performed By: #### 5 8410-2 #### DONAL CAVAZOS RIO DEMARCUS ([id number]) [facility] ([facility]) [address] [place] [address] 75605 Carbon dioxide, total [Moles /volume] in Serum or PlasmaOrdered By: Yuriy Conway on 11-26-2023 CO2 [Moles/Vol] 25.2 mmol/L Normal 21.0-31.0 [facility] Comment on above: Performed By: #### L KAI #### [address] [place] [address] [place] Chloride [Moles/volume] in S dm or PlasmaOrdered By: Yuriy Conway on 11-26-2023 Chloride [Moles/Vol] 109 mmol/L High 98-107 [facility] Comment on above: Performed By: #### L KAI #### [facility] [address] [place] [address] ECG 12 lead ECGon 11-26-2023 ECG 12 lead ECG [facility] [address] Electrocardiograph Report Signed Patient: Jesus Wolf MR#: [id number] : 1955 Acct:[id number] Age/Sex: 68 / F ADM Date: 11/26/23 Loc: Room: Type: [facility] Attending Dr: Yuriy Conway MD Ordering Provider: Yuriy Conway MD, [facility] Date of Service: 11/26/2307/10/1234 ECG/ECG 12 lead ECG: Pre-cardioversion rhythm assessment Copies to: Test Reason : Blood Pressure : / mmHG Vent. Rate : 107 BPM Atrial Rate : 108 BPM P-R Int : 228 ms QRS Dur : 100 ms QT Int : 370 ms P-R-T Axes : 087 048 067 degrees QTc Int : 493 ms Sinus tachycardia with 1st degree AV block and PAC's Otherwise normal ECG When compared with ECG of 21-SEP-2023 12:09, RI interval has increased Nonspecific T wave abnormality now evident in Anterior leads Confirmed by ROLAND CHILDERS [facility] ([id number]) on 11/27/2023 4:52:15 PM Referred By: Yuriy Conway Electronically Signed By:GAETANO WATKINS MD FAC Transcribed By: MUS Signed By Tobin Watkins MD 11/27/23 6977 Normal [facility] ECG post procedureon 024 ECG post procedure [facility] [place] [address] Electrocardiograph Report Signed Patient: Jesus Wolf MR#: [id number] : 1955 Acct:[id number] Age/Sex: 68 / F ADM Date: 11/26/23 Loc: PO Room: Type: [facility] Attending Dr: Yuriy Conway MD Ordering Provider: Yuriy Conway MD, [facility] Date of Service: 11/26/23/ ECG/ECG post procedure: Post CV Copies to: Test Reason : Blood Pressure : 137/090 mmHG Vent. Rate : 066 BPM Atrial Rate : 066 BPM P-R Int : 204 ms QRS Dur : 108 ms QT Int : 466 ms P-R-T Axes : 056 017 059 degrees QTc Int : 488 ms Normal sinus rhythm Prolonged QT Abnormal ECG When compared with ECG of 26-NOV-2023 12:33, (Unconfirmed) Vent. rate has decreased BY 41 BPM Confirmed by ROLAND CHILDERS [facility] ([id number]) on 11/27/2023 4:52:18 PM Referred By: Yuriy Conway Electronically Signed By:GAETANO WATKINS MD [facility] Transcribed By: MUS Signed By Tobin Watkins MD 11/27/23 1652 Normal [facility] Potassium [Moles/volume] in Serum or PlasmaOrdered By: Yuriy Conway on 11-26-2023 Potassium [Moles/Vol] 4.1 mmol/L Normal 3.5-5.1 [facility] Comment on above: Performed By: #### L YTES #### [address] Serum or plasma anion gap de terminationOrdered By: Yuriy Conway on 11-26-2023 Anion gap [Moles/Vol] 11.9 mmol/L Normal 6.0-15.0 [facility] Comment on above: Result Comment: PERF ORMED BY: [place] [address] PATHOLOGIST BLOCKLAYER ERICK FORDE M.D. Performed By: #### L YTES #### [address] Sodium [Moles/volume] in Ser um or PlasmaOrdered By: Yuriy Conway on 11-26-2023 Sodium [Moles/Vol] 142 mmol/L Normal 136-145 [facility] Comment on above: Performed By: #### L KAI #### [facility] [address] [id number] [facility] ECG 12-LEADon 11-16-2023 ECG 12-LEAD Ventricular Rate 138 Atrial Rate 68 QRS Duration 152 Q-T Interval 384 QTC Calculation(Bazett) 581 R Jefferson 99 T Jefferson 52 QRS Count 23 Q Onset 196 T Offset 388 QTC Fredericia 506 Diagnosis Wide QRS tachycardia Rightward axis Nonspecific intraventricular block Abnormal ECG When compared with ECG of 04-OCT-2019 12:23, Wide QRS tachycardia has replaced Sinus rhythm Vent. rate has increased BY 70 BPM Confirmed by Todd Sheffield ([id number]) on 11/25/2023 2:22:27 PM [facility] ECG 12 Leadon 10-29-2023 ECG revealed atrial flutter with variable AV conduction [facility] Work Phone: MR Biliary ducts and Pancrea tic duct WO and W contrast Melly 10-23-2023 [facility] Collagen crosslinked C-telop eptide [Mass/Vol]on 10-13-2023 C Telopeptide, Beta Cross Linked 182 pg/mL 171 - 970 pg/mL [facility] Comprehensive metabolic 2000 panelon 10-13-2023 Albumin [Mass/Vol] 3.9 g/dL 3.9 - 4.9 g/dL [facility] ALP [Catalytic activity/Vol] 101 U/L 34 - 123 U/L [facility] ALT [Catalytic activity/Vol] 24 U/L 7 - 38 U/L [facility] Anion gap [Moles/Vol] 12 mmol/L 9 - 18 mmol/L [facility] AST [Catalytic activity/Vol] 25 U/L 13 - 35 U/L [facility] Bilirubin [Mass/Vol] 0.4 mg/dL 0.2 - 1 .3 mg/dL [facility] Calcium [Mass/Vol] 9.6 mg/dL 8.5 - 10. 2 mg/dL [facility] Chloride [Moles/Vol] 107 mmol/L High 97 - 10 5 mmol/L [facility] CO2 [Moles/Vol] 24 mmol/L 22 - 30 mmol/L [facility] Creatinine [Mass/Vol] 1.04 mg/dL High 0.58 - 0.96 mg/dL [facility] Estimated Glomerular Filtration Rate 59 mL/min/1.73m Low >=60 mL/min/1.73m [facility] Glucose [Mass/Vol] 101 mg/dL High 74 - 99 mg/dL [facility] Potassium [Moles/Vol] 4.6 mmol/L 3.7 - 5.1 mmol/L [facility] Protein [Mass/Vol] 6.2 g/dL Low 6.3 - 8.0 g/dL [facility] Sodium [Moles/Vol] 143 mmol/L 136 - 144 mmol/L [facility] Urea nitrogen [Mass/Vol] 29 mg/dL High 7 - 21 mg/dL [facility] VITAMIN D 25 HYDROXYon 10-13 25-hydroxyvitamin D3 [Mass/Vol] 43.4 ng/mL 31.0 - 80.0 ng/mL [facility] ECG 12 Leadon 09-17-2023 ECG reveals atrial flutter with variable AV conduction [facility] Work Phone: COLONOSCOPY DIAGNOSTICon [facility] C3 COMPLEMENT Don 02-06-20 23 Complement C3 [Mass/Vol] 179 mg/dL High 86 - 166 mg/dL [facility] C4 COMPLEMENT BLDon 02-05-20 Complement C4 [Mass/Vol] 39 mg/dL 13 - 46 mg/dL [facility] CBC W Auto Differential pane l (Bld)on 02-04-2023 Basophils (Bld) [#/Vol] 0.03 10*3/uL <0.11 k/uL [facility] Basophils/100 WBC (Bld) 0.4 % [facility] Differential cell count method Nom (Bld) Auto [facility] Eosinophils (Bld) [#/Vol] 0.26 10*3/uL <0.46 k/uL [facility] Eosinophils/100 WBC (Bld) 3.1 % [facility] Erythrocyte distribution width (RBC) [Ratio] 13.2 % 11.5 - 15.0 % [facility] Hematocrit (Bld) [Volume fraction] 41.8 % 36.0 - 46.0 % [facility] Hemoglobin (Bld) [Mass/Vol] 13.5 g/dL 11.5 - 15.5 g/dL [facility] Immature granulocytes (Bld) [#/Vol] <0.10 k/uL [facility] Immature granulocytes/100 WBC (Bld) 0.2 % [facility] Lymphocytes (Bld) [#/Vol] 2.04 10*3/uL 1.00 - 4.00 k/uL [facility] Lymphocytes/100 WBC (Bld) 24.5 % [facility] MCH (RBC) [Entitic mass] 31.3 pg 26.0 - 34.0 pg [facility] MCHC (RBC) [Mass/Vol] 32.3 g/dL 30.5 - 36.0 g/dL [facility] MCV (RBC) [Entitic vol] 97.0 fL 80.0 - 100.0 fL [facility] Monocytes (Bld) [#/Vol] 0.92 10*3/uL High <0.87 k/uL [facility] Monocytes/100 WBC (Bld) 11.0 % [facility] Neutrophils (Bld) [#/Vol] 5.07 10*3/uL 1.45 - 7.50 k/uL [facility] Neutrophils/100 WBC (Bld) 60.8 % [facility] Nucleated RBC (Bld) [#/Vol] <0.01 k/uL [facility] Nucleated RBC/100 WBC (Bld) [Ratio] 0.0 /100 WBC [facility] Platelet mean volume (Bld) [Entitic vol] 10.5 fL 9.0 - 12.7 fL [facility] Platelets (Bld) [#/Vol] 279 10*3/uL 150 - 400 k/uL [facility] RBC (Bld) [#/Vol] 4.31 10*6/uL 3.90 - 5.2 0 m/uL [facility] WBC (Bld) [#/Vol] 8.34 10*3/uL 3.70 - 11. 00 k/uL [facility] CK CREATINE KINASEon 023 CK [Catalytic activity/Vol] 377 U/L High 42 - 196 U/L [facility] Comprehensive metabolic 2000 panelon 02-04-2023 Albumin [Mass/Vol] 4.2 g/dL 3.9 - 4.9 g/dL [facility] ALP [Catalytic activity/Vol] 116 U/L 34 - 123 U/L [facility] ALT [Catalytic activity/Vol] 20 U/L 7 - 38 U/L [facility] Anion gap [Moles/Vol] 14 mmol/L 9 - 18 mmol/L [facility] AST [Catalytic activity/Vol] 30 U/L 13 - 35 U/L [facility] Bilirubin [Mass/Vol] 0.6 mg/dL 0.2 - 1 .3 mg/dL [facility] Calcium [Mass/Vol] 9.8 mg/dL 8.5 - 10. 2 mg/dL [facility] Chloride [Moles/Vol] 106 mmol/L High 97 - 10 5 mmol/L [facility] CO2 [Moles/Vol] 20 mmol/L Low 22 - 30 mmol/L [facility] Creatinine [Mass/Vol] 1.14 mg/dL High 0.58 - 0.96 mg/dL [facility] Estimated Glomerular Filtration Rate 53 mL/min/1.73m Low >=60 mL/min/1.73m [facility] Glucose [Mass/Vol] 82 mg/dL 74 - 99 mg/dL [facility] Potassium [Moles/Vol] 5.0 mmol/L 3.7 - 5.1 mmol/L [facility] Protein [Mass/Vol] 6.8 g/dL 6.3 - 8.0 g/dL [facility] Sodium [Moles/Vol] 140 mmol/L 136 - 144 mmol/L [facility] Urea nitrogen [Mass/Vol] 24 mg/dL High 7 - 21 mg/dL [facility] PROTEIN CREATININE RATIOon 0 02-04-2023 Protein/Creatinine (U) [Mass ratio] 0.08 mg/mg <0.15 mg/mg [facility] Protein/Creatinine (U) [Mass ratio]on 02-04-2023 Creatinine (U) [Mass/Vol] 133.7 mg/dL 20.0 - 300.0 mg/dL [facility] Protein (U) [Mass/Vol] 11 mg/dL 0 - 20 mg/dL [facility] RHEUMATOID FACTOR BLon 02-04 Rheumatoid factor Qn <16 IU/mL [facility] Urinalysis complete panel (U )on 02-04-2023 Bacteria LM.HPF (Urine sed) [#/Area] Rare Abnormal None Seen /HPF [facility] Bilirubin Ql (U) Negative Negative [facility] Clarity (Unsp spec) Clear Clear [facility] Color (U) Yellow Yellow [facility] Epithelial cells LM.HPF (Urine sed) [#/Area] Few [facility] Glucose Test strip (U) [Mass/Vol] Negative Trace, Negative [facility] Hemoglobin Ql (U) Negative Negative, Trace [facility] Hyaline casts (Urine sed) [#/Area] /[LPF] Abnormal 0 /LPF [facility] Ketones Ql (U) Negative Trace, Negative [facility] Leukocyte esterase Test strip Ql (U) 250 Bailey/uL Abnormal Negative, 25 Bailey/uL [facility] Nitrite Ql (U) 1+ Abnormal Negative [facility] pH (U) 5.5 [pH] 5.0 - 8.0 [facility] Protein (U) [Mass/Vol] 1+ Abnormal Trace , Negative [facility] RBC LM.HPF (Urine sed) [#/Area] 0-3 /HPF 0-3 /HPF [facility] Specific gravity (U) [Rel density] 1.018 1.005 - 1.030 [facility] Urobilinogen Ql (U) Negative Negative [facility] WBC LM.HPF (Urine sed) [#/Area] /[HPF] Abnormal 0-5 /HPF [facility] CULTURE BLOODon 10-01-2022 Microscopic examination of [...] P Trimethoprim/Sulfameth oxazole 20 S P Normal [facility] Comment on above: Performed By: #### L IPA, MG, CMP #### [facility] [address] [place] [address] Dr. Dank Lovelace LACTATE/LACTIC ACIDon 2022 Lactate [Moles/Vol] 1.0 mmol/L Normal 0.4-1.9 [facility] Comment on above: Performed By: #### L IPA, MG, CMP #### [facility] [address] [place] [address] Dr. Dank Lovelace BLOOD CULTURE ID PANELon A. [email or web address] Not detected Normal NOT DETECTED [facility] Comment on above: Performed By: #### L IPA, MG, CMP #### [facility] [address] [place] [address] Dr. Dank Lovelace Bacteriodes fragilis Not detected Normal NOT DETECTED [facility] Comment on above: Performed By: #### L IPA, MG, CMP #### [facility] [address] [place] [address] Dr. Dank LANZA CONTROLS PASSED Normal [facility] Comment on above: Performed By: #### L IPA, MG, CMP #### [facility] [address] [place] [address] Dr. Dank ARORADBTHD BLOOD CULTURE BOTTLE INFORMATION Normal [facility] Comment on above: Performed By: #### L IPA, MG, CMP #### [facility] [address] [place] [address] Dr. Dank Lovelace [id number] ANTIMICROBIAL RESISTANCE GENES Normal [facility] Comment on above: Performed By: #### L IPA, MG, CMP #### [facility] [address] [place] [address] Dr. Dank ARORADHD2 SEE BELOW [facility] Comment on above: Result Comment: Note : Antimicrobial resitance can occur via multiple mechanisms. A Not Detected result for the [employer] antomicrobial resistance gene assays does not indicate antimicrobial susceptibility. Subculturing is required for species identification and susceptibility testing of isolates. Performed By: #### L IPA, MG, CMP #### [facility] [address] [place] [address] Dr. Dank ARORADHD3 Positive [facility] Comment on above: Performed By: #### L IPA, MG, CMP #### [facility] [address] [address] [address] Dank Lovelace BCIDHD4 Negative Normal [facility] Comment on above: Performed By: #### L IPA, MG, CMP #### [facility] [address] [address] [address] Dank Lovelace BCIDHD5 YEAST Normal [facility] Comment on above: Performed By: #### L IPA, MG, CMP #### [facility] [address] [address] [address] Dank Lovelace Bottle Set: Set 1 Normal [facility] Comment on above: Performed By: #### L IPA, MG, CMP #### [facility] [address] [place] [address] Dr. Dank Lovelace Bottle: Aerobic Normal [facility] Comment on above: Performed By: #### L IPA, MG, CMP #### [facility] [address] [place] [address] Dr. Dank Lovelace C. neoformans/gattii Not detected Normal NOT DETECTED [facility] Comment on above: Performed By: #### L IPA, MG, CMP #### [facility] [address] [place] [address] Dr. Dank Lovelace Nurys albicans Not detected Normal NOT DETECTED [facility] Comment on above: Performed By: #### L IPA, MG, CMP #### [facility] [address] [place] [address] Dr. Dank Lovelace Nurys auris Not detected Normal NOT DETECTED The [facility] Comment on above: Performed By: #### L IPA, MG, CMP #### [facility] [address] [place] [address] Dr. Dank Lovelace Nurys glabrata Not detected Normal NOT DETECTED [facility] Comment on above: Performed By: #### L IPA, MG, CMP #### [facility] [address] [place] [address] Dr. Dank Lovelace Nurys Krusei Not detected Normal NOT DETECTED [facility] Comment on above: Performed By: #### L IPA, MG, CMP #### [facility] [address] [place] [address] Dr. Dank Lovelace Nurys Parapsilosis Not detected Normal NOT DETECTED [facility] Comment on above: Performed By: #### L IPA, MG, CMP #### [facility] [address] [place] [address] Dr. Dank Lovelace Nurys Tropicalis Not detected Normal NOT DETECTED [facility] Comment on above: Performed By: #### L IPA, MG, CMP #### [facility] [address] [place] [address] Dr. Dank Lovelace CTX-M Resistant Gene Not Applicable Normal NOT DETECTE D [facility] Comment on above: Performed By: #### L IPA, MG, CMP #### [facility] [address] [place] [address] Dr. Dank Lovelace E. Cloacae complex Not detected Normal NOT DETECTED [facility] Comment on above: Performed By: #### L IPA, MG, CMP #### [facility] [address] [place] [address] Dr. Dank Lovelace E. faecalis Not detected Normal NOT DETECTED [facility] Comment on above: Performed By: #### L IPA, MG, CMP #### [facility] [address] [place] [address] Dr. Dank Lovelace E. faecium Not detected Normal NOT DETECTED The [facility] Comment on above: Performed By: #### L IPA, MG, CMP #### [facility] [address] [place] [address] Dr. Dank Lovelace Enterobacteriaceae Not detected Normal NOT DETECTED [facility] Comment on above: Performed By: #### L IPA, MG, CMP #### [facility] [address] [place] [address] Dr. Dank Lovelace Escherichia coli Not detected Normal NOT DETECTED [facility] Comment on above: Performed By: #### L IPA, MG, CMP #### [facility] [address] [place] [address] Dr. Dank Lovelace H. influenzae Not detected Normal NOT DETECTED The [facility] Comment on above: Performed By: #### L IPA, MG, CMP #### [facility] [address] [place] [address] Dr. Dank Lovelace IMP Resistant Gene Not Applicable Normal NOT DETECTED [facility] Comment on above: Performed By: #### L IPA, MG, CMP #### [facility] [address] [place] [address] Dr. Dank Alvarez. oxytoca Not detected Normal NOT DETECTED The [facility] Comment on above: Performed By: #### L IPA, MG, CMP #### [facility] [address] [place] [address] Dr. Dank Lovelace K. pneumoniae Not detected Normal NOT DETECTED The [facility] Comment on above: Performed By: #### L IPA, MG, CMP #### [facility] [address] [place] [address] Dr. Dank Lovelace Klebsiella aerogenes Not detected Normal NOT DETECTED [facility] Comment on above: Performed By: #### L IPA, MG, CMP #### [facility] [address] [place] [address] Dr. Dank Lovelace KPC Resistant Gene Not Applicable Normal NOT DETECTED [facility] Comment on above: Performed By: #### L IPA, MG, CMP #### [facility] [address] [place] [address] Dr. Dank Lovelace List. monocytogenes Not detected Normal NOT DETECTED [facility] Comment on above: Performed By: #### L IPA, MG, CMP #### [facility] [address] [place] [address] Dr. Dank Lovelace Mcr-1 Resistant Gene Not Applicable Normal NOT DETECTE D [facility] Comment on above: Performed By: #### L IPA, MG, CMP #### [facility] [address] [place] [address] Dr. Dank Lovelace mecA/C Detected Abnormal NOT DETECTED [facility] Comment on above: Performed By: #### L IPA, MG, CMP #### [facility] [address] [place] [address] Dr. Dank Lovelace mecA/C MREJ Not Applicable Normal NOT DETECTED [facility] Comment on above: Performed By: #### L IPA, MG, CMP #### [facility] [address] [address] [address] Dank Lovelace N. meningitidis Not detected Normal NOT DETECTED The [facility] Comment on above: Performed By: #### L IPA, MG, CMP #### [facility] [address] [place] [address] Dr. Dank Lovelace NDM Resistant Gene Not Applicable Normal NOT DETECTED [facility] Comment on above: Performed By: #### L IPA, MG, CMP #### [facility] [address] [place] [address] Dr. Dank Lovelace Oxa-48-like Not Applicable Normal NOT DETECTED The [facility] Comment on above: Performed By: #### L IPA, MG, CMP #### [facility] [address] [place] [address] Dr. Dank Lovelace Proteus Not detected Normal NOT DETECTED The [facility] Comment on above: Performed By: #### L IPA, MG, CMP #### [facility] [address] [place] [address] Dr. Dank Lovelace Pseud. aeruginosa Not detected Normal NOT DETECTED [facility] Comment on above: Performed By: #### L IPA, MG, CMP #### [facility] [address] [place] [address] Dr. Dank Lovelace S. maltophilia Not detected Normal NOT DETECTED [facility] Comment on above: Performed By: #### L IPA, MG, CMP #### [facility] [address] [place] [address] Dr. Dank Lovelace Seratia marcescens Not detected Normal NOT DETECTED [facility] Comment on above: Performed By: #### L IPA, MG, CMP #### [facility] [address] [place] [address] Dr. Dank Lovelace Site: l a/c Normal [facility] Comment on above: Performed By: #### L IPA, MG, CMP #### [facility] [address] [place] [address] Dr. Dank Lovelace Staph. aureus Not detected Normal NOT DETECTED [facility] Comment on above: Performed By: #### L IPA, MG, CMP #### [facility] [address] [place] [address] Dr. Dank Salazar. epidermidis Detected Critically abnormal NOT DETECTED [facility] Comment on above: Performed By: #### L IPA, MG, CMP #### [facility] [address] [place] [address] Dr. Dank Lovelace Staph. lugdunensis Not detected Normal NOT DETECTED [facility] Comment on above: Performed By: #### L IPA, MG, CMP #### [facility] [address] [place] [address] Dr. Dank Lovelace Staphylococcus Detected Critically abnormal NOT DETECTED [facility] Comment on above: Performed By: #### L IPA, MG, CMP #### [facility] [address] [place] [address] Dr. Dank Lovelace Strep. agalactiae Not detected Normal NOT DETECTED [facility] Comment on above: Performed By: #### L IPA, MG, CMP #### [facility] [address] [place] [address] Dr. Dank Lovelace Strep. pneumoniae Not detected Normal NOT DETECTED [facility] Comment on above: Performed By: #### L IPA, MG, CMP #### [facility] [address] [place] [address] Dr. Dank Lovelace Strep. pyogenes Not detected Normal NOT DETECTED The [facility] Comment on above: Performed By: #### L IPA, MG, CMP #### [facility] [address] [place] [address] Dr. Dank Lovelace Streptococcus Not detected Normal NOT DETECTED [facility] Comment on above: Performed By: #### L IPA, MG, CMP #### [facility] [address] [place] [address] Dr. Dank Lovelace Belinda/B Resist. Gene Not Applicable Normal NOT DETECTED [facility] Comment on above: Performed By: #### L IPA, MG, CMP #### [facility] [address] [place] [address] Dr. Dank Lovelace VIM Resistant Gene Not Applicable Normal NOT DETECTED [facility] Comment on above: Performed By: #### L IPA, MG, CMP #### [facility] [address] [place] [address] Dr. Dank Lovelace BNPon 09-28-2022 Natriuretic peptide B (Bld) [Mass/Vol] 282.0 pg/mL Normal <=900.0 [facility] Comment on above: Performed By: #### C MP, LIPA, TSH, BNP, CMADM #### [facility] [address] [place] [address] Dr. Dank Lovelace CARDIAC DENIS ADMITon 023 CK [Catalytic activity/Vol] 254 U/L Critically high 26-192 [facility] Comment on above: Performed By: #### C MP, LIPA, TSH, BNP, CMADM #### [facility] [address] [place] [address] Dr. Dank Lovelace CK.MB [Mass/Vol] 2.31 ng/mL Normal <=3.60 [facility] Comment on above: Performed By: #### C MP, LIPA, TSH, BNP, CMADM #### [facility] [address] [place] [address] Dr. Dank Lovelace HSTROP 10.2 pg/mL Normal 4.0-51.3 [facility] Comment on above: Result Comment: CUT- OFF POINTS HAVE BEEN ESTABLISHED BASED ON THE FOURTH UNIVERSAL DEFINITIONS OF MYOCARDIAL INFARCTION. THE UPPER REFERENCE LIMIT (URL) OF TROPONIN, DEFINED THE 99TH PERCENTILE OF cTnI DISTRIBUTION IN A REFERENCE POPULATION, HAS BEEN CONFIRMED THE DECISION THRESHOLD FOR SD DIAGNOSIS. Performed By: #### C MP, LIPA, TSH, BNP, CMADM #### [facility] [address] [place] [address] Dr. Dank Lovelace CHRISS 454 ng/mL Critically high 9-82 [facility] Comment on above: Performed By: #### C MP, LIPA, TSH, BNP, CMADM #### [facility] [address] [place] [address] Dr. Dank Lovelace CBC AUTO DIFFon 09-28-2022 BASO # 0.0 103/ul Normal 0.0-0.1 [facility] Comment on above: Performed By: #### L IPA, MG, CMP #### [facility] [address] [place] [address] Dr. Dank Lovelace Basophils/100 WBC (Bld) 0.2 % Normal 0.2-2.0 [facility] Comment on above: Performed By: #### L IPA, MG, CMP #### [facility] [address] [place] [address] Dr. Dank Lovelace EO # 0.1 103/ul Normal 0.0-0.7 [facility] Comment on above: Performed By: #### L IPA, MG, CMP #### [facility] [address] [place] [address] Dr. Dank Lovelace Eosinophils/100 WBC (Bld) 0.5 % Critically low 0.9-7.0 [facility] Comment on above: Performed By: #### L IPA, MG, CMP #### [facility] [address] [place] [address] Dr. Dank Lovelace Erythrocyte distribution width (RBC) [Ratio] 13.2 % Normal 11.0-15.0 [facility] Comment on above: Performed By: #### L IPA, MG, CMP #### [facility] [address] [place] [address] Dr. Dank Lovelace Hematocrit (Bld) [Volume fraction] 41.5 % Normal 36.0-48.0 [facility] Comment on above: Performed By: #### L IPA, MG, CMP #### [facility] [address] [place] [address] Dr. Dank Lovelace Hemoglobin (Bld) [Mass/Vol] 14.1 g/dL Normal 12.0-16.0 [facility] Comment on above: Performed By: #### L IPA, MG, CMP #### [facility] [address] [place] [address] Dr. Dank Lovelace IG # 0.02 10e3/ul Normal 0.00-0.03 [facility] Comment on above: Performed By: #### L IPA, MG, CMP #### [facility] [address] [place] [address] Dr. Dank Lovelace IG % 0.2 % Normal 0.0-0.5 [facility] Comment on above: Performed By: #### L IPA, MG, CMP #### [facility] [address] [place] [address] Dr. Dank Lovelace LYMPH # 0.7 103/ul Critically low 1.2-3.8 [facility] Comment on above: Performed By: #### L IPA, MG, CMP #### [facility] [address] [place] [address] Dr. Dank Lovelace Lymphocytes/100 WBC (Bld) 7.3 % Critically low 20.5-60.0 [facility] Comment on above: Performed By: #### L IPA, MG, CMP #### [facility] [address] [place] [address] Dr. Dank Lovelace MANUAL DIFF REQ NO Normal [facility] Comment on above: Performed By: #### L IPA, MG, CMP #### [facility] [address] [place] [address] Dr. Dank Lovelace MCH (RBC) [Entitic mass] 31.5 pg Normal 26.7-34.0 [facility] Comment on above: Performed By: #### L IPA, MG, CMP #### [facility] [address] [place] [address] Dr. Dank Lovelace MCHC (RBC) [Mass/Vol] 34.0 g/dL Normal 29.9-35.2 [facility] Comment on above: Performed By: #### L IPA, MG, CMP #### [facility] [address] [place] [address] Dr. Dank Lovelace MCV (RBC) [Entitic vol] 92.6 fL Normal 81.0-99.0 [facility] Comment on above: Performed By: #### L IPA, MG, CMP #### [facility] [address] [place] [address] Dr. Dank Lovelace MONO # 0.7 103/ul Normal 0.3-0.8 [facility] Comment on above: Performed By: #### L IPA, MG, CMP #### [facility] [address] [address] [address] Dank Lovelace Monocytes/100 WBC (Bld) 7.1 % Normal 1.7-12.0 [facility] Comment on above: Performed By: #### L IPA, MG, CMP #### [facility] [address] [place] [address] Dr. Dank Lovelace NEUT # 8.5 103/ul Critically high 1.4-6.5 [facility] Comment on above: Performed By: #### L IPA, MG, CMP #### [facility] [address] [place] [address] Dr. Dank Lovelace Neutrophils/100 WBC (Bld) 84.7 % Critically high 43.0-75.0 [facility] Comment on above: Performed By: #### L IPA, MG, CMP #### [facility] [address] [place] [address] Dr. Dank Lovelace Platelet mean volume (Bld) [Entitic vol] 10.3 fL Normal 9.5-13.5 [facility] Comment on above: Performed By: #### L IPA, MG, CMP #### [facility] [address] [place] [address] Dr. Dank Lovelace PLT 247 103/ul Normal 150-450 [facility] Comment on above: Performed By: #### L IPA, MG, CMP #### [facility] [address] [place] [address] Dr. Dank Lovelace RBC 4.48 106/ul Normal 4.20-5.40 [facility] Comment on above: Performed By: #### L IPA, MG, CMP #### [facility] [address] [place] [address] Dr. Dank Lovelace WBC 10.1 103/ul Normal 4.0-11.0 [facility] Comment on above: Performed By: #### L IPA, MG, CMP #### [facility] [address] [place] [address] ABD/PELVIS WO CONon [...] ovarian cyst in a postmenopausal female. Outpatient [employer] consultation may help better delineate. 5. Nonobstructing left-sided nephrocalcinosis. 6. Otherwise unremarkable noncontrast CT of the abdomen and pelvis for acute pathology. Electronically authenticated by: JENA WEN Date: 2022-09-28 21:24 Normal [facility] CULTURE BLOODon 09-28-2022 Microscopic examination of blood, culture Culture Observations: NO GROWTH AT 5 DAYS. Normal [facility] Comment on above: Performed By: #### L IPA, MG, CMP #### [facility] [address] [place] [address] Dr. Dank Lovelace Covid-19 PCR ([facility])on 09-17 SARS-CoV-2 (COVID-19) RNA RAVIN+probe Ql (Unsp spec) Not detected Normal NOT DETECTED [facility] Comment on above: Result Comment: When diagnostic [...] for this test is supported by the [employer] of Health and Human Service's declaration that [...] By: #### L IPA, MG, CMP #### [facility] [address] [place] [address] Dr. Dank Lovelace ER URINE PROFILEon 3 Bilirubin Ql (U) SMALL Abnormal NEGATIVE [facility] Comment on above: Performed By: #### L IPA, MG, CMP #### [facility] [address] [place] [address] Dr. Dank Lovelace Clarity (U) CLEAR Normal CLEAR [facility] Comment on above: Performed By: #### L IPA, MG, CMP #### [facility] [address] [place] [address] Dr. Dank Lovelace Color (U) DK. YELLOW Normal YELLOW [facility] Comment on above: Performed By: #### L IPA, MG, CMP #### [facility] [address] [address] [address] Dank BE A micrscopic examination will be performed if indicated. Normal [facility] Comment on above: Performed By: #### L IPA, MG, CMP #### [facility] [address] [address] [address] Dank Lovelace Glucose Ql (U) Negative Normal NEGATIVE [facility] Comment on above: Performed By: #### L IPA, MG, CMP #### [facility] [address] [address] [address] Dank Lovelace Hemoglobin Ql (U) Negative Normal NEGATIVE [facility] Comment on above: Performed By: #### L IPA, MG, CMP #### [facility] [address] [place] [address] Dr. Dank Lovelace Ketones Ql (U) Negative Normal NEGATIVE [facility] Comment on above: Performed By: #### L IPA, MG, CMP #### [facility] [address] [address] [address] Dank Lovelace LEUKOCYTES Negative Normal NEGATIVE [facility] Comment on above: Performed By: #### L IPA, MG, CMP #### [facility] [address] [address] [address] Dank Lovelace Nitrite Ql (U) Negative Normal NEGATIVE [facility] Comment on above: Performed By: #### L IPA, MG, CMP #### [facility] [address] [place] [address] Dr. Dank Lovelace pH (U) 5.5 [pH] Normal 5-9 [facility] Comment on above: Performed By: #### L IPA, MG, CMP #### [facility] [address] [address] [address] Dank Lovelace SPEC GRAVITY 1.025 Normal 1.005-<=1.02 5 [facility] Comment on above: Performed By: #### L IPA, MG, CMP #### [facility] [address] [address] [address] Dank Lovelace UA PROTEIN TRACE Normal NEGATIVE/ TRACE [facility] Comment on above: Performed By: #### L IPA, MG, CMP #### [facility] [address] [place] [address] Dr. Dank Lovelace UR MICRO IND NOT INDICATED Normal [facility] Comment on above: Performed By: #### L IPA, MG, CMP #### [facility] [address] [address] [address] Dank Lovelace Urobilinogen Qn (U) 0.2 {Simon'U}/dL Normal 0.2 - 1. 0 [facility] Comment on above: Performed By: #### L IPA, MG, CMP #### [facility] [address] [address] [address] Dank Lovelace GI PANEL (PCR)on 09-28-2022 Adenovirus F 40/41 Not detected Normal NOT DETECTED [facility] Comment on above: Performed By: #### G IPANEL #### [facility] [address] [place] [address] Dr. Dank Lovelace Astrovirus Not detected Normal NOT DETECTED [facility] Comment on above: Performed By: #### G IPANEL #### [facility] [address] [place] [address] Dr. Dank Lovelace C. Diff toxin A/B Detected Critically abnormal NOT DETECTED [facility] Comment on above: Performed By: #### G IPANEL #### [facility] [address] [place] [address] Dr. Dank Lovelace Campylobacter Not detected Normal NOT DETECTED [facility] Comment on above: Performed By: #### G IPANEL #### [facility] [address] [place] [address] Dr. Dank Lovelace Cryptosporidium Not detected Normal NOT DETECTED [facility] [facility] Comment on above: Performed By: #### G IPANEL #### [facility] [address] [place] [address] Dr. Dank Lovelace Cyclos. Cayetanensis Not detected Normal NOT DETECTED [facility] Comment on above: Performed By: #### G IPANEL #### [facility] [address] [place] [address] Dr. Dank Lovelace E. Coli O157 Not Applicable Normal Not Applicable [facility] Comment on above: Performed By: #### G IPANEL #### [facility] [address] [place] [address] Dr. Dank Lovelace E. histolytica Not detected Normal NOT DETECTED The [facility] Comment on above: Performed By: #### G IPANEL #### [facility] [address] [place] [address] Dr. Dank Lovelace EAEC Not detected Normal NOT DETECTED The [facility] Comment on above: Performed By: #### G IPANEL #### [facility] [address] [place] [address] Dr. Dank Lovelace EIEC Not detected Normal NOT DETECTED The [facility] Comment on above: Performed By: #### G IPANEL #### [facility] [address] [place] [address] Dr. Dank Lovelace EPEC Not detected Normal NOT DETECTED The [facility] Comment on above: Performed By: #### G IPANEL #### [facility] [address] [place] [address] Dr. Dank Lovelace ETEC Not detected Normal NOT DETECTED The [facility] Comment on above: Performed By: #### G IPANEL #### [facility] [address] [place] [address] Dr. Dank Johnston. Lamblia Not detected Normal NOT DETECTED The [facility] Comment on above: Performed By: #### G IPANEL #### [facility] [address] [place] [address] Dr. Dank FIGUEROAL CONTROLS PASSED Normal The [facility] Comment on above: Performed By: #### G IPANEL #### [facility] [address] [place] [address] Dr. Dank MACKENZIE VASU HEADER GI PANEL BACTERIA Normal [facility] Comment on above: Performed By: #### G IPANEL #### [facility] [address] [place] [address] Dr. Dank MACKENZIEHD ECOLI GI PANEL DIARRHEAGEN IC E.COLI / SHIGELLA Normal [facility] Comment on above: Performed By: #### G IPANEL #### [facility] [address] [place] [address] Dr. Dank DOTSON INFO SEE BELOW Normal [facility] Comment on above: Result Comment: EAEC - Enteroaggregative E. Coli EPEC- Enteropathogenic E. Coli ETEC- Enterotoxigenic E. Coli lt/st STEC- Shigella-like toxin-producing E. Coli stx1/stx2 EIEC- Shigella/Enteroinvasive E. Coli Performed By: #### G IPANEL #### [facility] [address] [address] [address] Dank DOTSON PARASITES GI PANEL PARASITES Normal [facility] Comment on above: Performed By: #### G IPANEL #### [facility] [address] [place] [address] Dr. Dank DOTSON VIRUS GI PANEL VIRUSES Normal The [facility] Comment on above: Performed By: #### G IPANEL #### [facility] [address] [address] [address] Dank Lovleace Norovirus GI/GII Detected Abnormal NOT DETECTED [facility] Comment on above: Performed By: #### G IPANEL #### [facility] [address] [place] [address] Dr. Dank Lovelace P. Shigelloides Not detected Normal NOT DETECTED The [facility] Comment on above: Performed By: #### G IPANEL #### [facility] [address] [place] [address] Dr. Dank Lovelace Rotavirus A Not detected Normal NOT DETECTED The [facility] Comment on above: Performed By: #### G IPANEL #### [facility] [address] [place] [address] Dr. Dank Lovelace Sapovirus Not detected Normal NOT DETECTED The [facility] Comment on above: Performed By: #### G IPANEL #### [facility] [address] [place] [address] Dr. Dank Lovelace STEC Not detected Normal NOT DETECTED The [facility] Comment on above: Performed By: #### G IPANEL #### [facility] [address] [place] [address] Dr. Dank Lovelace Vibrio Not detected Normal NOT DETECTED The [facility] Comment on above: Performed By: #### G IPANEL #### [facility] [address] [place] [address] Dr. Dank Lovelace Vibrio Cholera Not detected Normal NOT DETECTED [facility] Comment on above: Performed By: #### G IPANEL #### [facility] [address] [place] [address] Dr. Dank Lovelace Y. Enterocolitica Not detected Normal NOT DETECTED [facility] Comment on above: Performed By: #### G IPANEL #### [facility] [address] [place] [address] Dr. Dank Lovelace Salmonella Not detected Normal NOT DETECTED The [facility] Comment on above: Performed By: #### G IPANEL #### [facility] [address] [place] [address] Dr. Dank Lovelace Performed By: #### L IPA, MG, CMP #### [facility] [address] [place] [address] Dr. Dank Lovelace INFLUENZA A AND B AGon 09-28 INFLUENZA A AG Negative Normal NEGATIVE SEE COMMENT [facility] Comment on above: Performed By: #### L IPA, MG, CMP #### [facility] [address] [place] [address] Dr. Dank Lovelace INFLUENZA B AG Negative Normal NEGATIVE SEE COMMENT [facility] Comment on above: Performed By: #### L IPA, MG, CMP #### [facility] [address] [place] [address] Dr. Dnak Lovelace LACTATE/LACTIC ACIDon 2022 Lactate [Moles/Vol] 2.2 mmol/L Critically high 0.4-1.9 [facility] Comment on above: Performed By: #### L IPA, MG, CMP #### [facility] [address] [place] [address] Dr. Dank Lovelace LIPASEon 09-28-2022 Lipase [Catalytic activity/Vol] 36.0 U/L Critically low 73.0-393.0 [facility] Comment on above: Performed By: #### C MP, LIPA, TSH, BNP, CMADM #### [facility] [address] [address] [address] Dank Lovelace PROF 14(COMP METB)on 023 Albumin [Mass/Vol] 3.7 g/dL Normal 3.4-5.0 [facility] Comment on above: Performed By: #### C MP, LIPA, TSH, BNP, CMADM #### [facility] [address] [place] [address] Dr. Dank Lovelace Albumin/Globulin [Mass ratio] 1.1 {ratio} Normal [facility] Comment on above: Performed By: #### C MP, LIPA, TSH, BNP, CMADM #### [facility] [address] [place] [address] Dr. Dank Lovelace ALP [Catalytic activity/Vol] 110 U/L Normal 46-116 [facility] Comment on above: Performed By: #### C MP, LIPA, TSH, BNP, CMADM #### [facility] [address] [place] [address] Dr. Dank Lovelace ALT [Catalytic activity/Vol] 33 U/L Normal 14-59 [facility] Comment on above: Performed By: #### C MP, LIPA, TSH, BNP, CMADM #### [facility] [address] [place] [address] Dr. Dank Lovelace Anion gap [Moles/Vol] 20.3 mmol/L Normal [facility] Comment on above: Performed By: #### C MP, LIPA, TSH, BNP, CMADM #### [facility] [address] [place] [address] Dr. Dank Lovelace AST [Catalytic activity/Vol] 31 U/L Normal 15-37 [facility] Comment on above: Performed By: #### C MP, LIPA, TSH, BNP, CMADM #### [facility] [address] [place] [address] Dr. Dank Lovelace Bilirubin [Mass/Vol] 0.9 mg/dL Normal 0.2-1.0 [facility] Comment on above: Performed By: #### C MP, LIPA, TSH, BNP, CMADM #### [facility] [address] [address] [address] Dank Lovelace Calcium [Mass/Vol] 9.2 mg/dL Normal 8.5-10.1 [facility] Comment on above: Performed By: #### C MP, LIPA, TSH, BNP, CMADM #### [facility] [address] [address] [address] Dank Lovelace Chloride [Moles/Vol] 105 mmol/L Normal 98-107 [facility] Comment on above: Performed By: #### C MP, LIPA, TSH, BNP, CMADM #### [facility] [address] [address] [address] Dank Lovelace CO2 [Moles/Vol] 16.6 mmol/L Critically low 21.0-32.0 [facility] Comment on above: Performed By: #### C MP, LIPA, TSH, BNP, CMADM #### [facility] [address] [address] [address] Dank Lovelace Creatinine [Mass/Vol] 1.27 mg/dL Critically high 0.55-1.02 [facility] Comment on above: Performed By: #### C MP, LIPA, TSH, BNP, CMADM #### [facility] [address] [place] [address] Dr. Dank Lovelace EGFR-AF SUDANESE 51 mL/min/1.73m2 Critically low >=60 [facility] Comment on above: Performed By: #### C MP, LIPA, TSH, BNP, CMADM #### [facility] [address] [place] [address] Dr. Dank Lovelace EGFR-NON AF SUDANESE 42 mL/min/1.73m2 Critically low >=60 [facility] Comment on above: Performed By: #### C MP, LIPA, TSH, BNP, CMADM #### [facility] [address] [place] [address] Dr. Dank Lovelace Globulin (S) [Mass/Vol] 3.3 g/dL Normal T [facility] Comment on above: Performed By: #### C MP, LIPA, TSH, BNP, CMADM #### [facility] [address] [place] [address] Dr. Dank Lovelace Glucose [Mass/Vol] 125 mg/dL Critically high 74-106 [facility] Comment on above: Performed By: #### C MP, LIPA, TSH, BNP, CMADM #### [facility] [address] [place] [address] Dr. Dank Lovelace Potassium [Moles/Vol] 3.9 mmol/L Normal 3.5-5.1 [facility] Comment on above: Performed By: #### C MP, LIPA, TSH, BNP, CMADM #### [facility] [address] [place] [address] Dr. Dank Lovelace Protein [Mass/Vol] 7.0 g/dL Normal 6.4-8.2 [facility] Comment on above: Performed By: #### C MP, LIPA, TSH, BNP, CMADM #### [facility] [address] [place] [address] Dr. Dank Lovelace Sodium [Moles/Vol] 138 mmol/L Normal 136-145 [facility] Comment on above: Performed By: #### C MP, LIPA, TSH, BNP, CMADM #### [facility] [address] [place] [address] Dr. Dank Lovelace Urea nitrogen [Mass/Vol] 25.0 mg/dL Critically high 7.0-18.0 [facility] Comment on above: Performed By: #### C MP, LIPA, TSH, BNP, CMADM #### [facility] [address] [place] [address] Dr. Dank Lovelace Urea nitrogen/Creatinine [Mass ratio] 19.7 mg/mg Normal [facility] Comment on above: Performed By: #### C MP, LIPA, TSH, BNP, CMADM #### [facility] [address] [place] [address] Dr. Dank Lovelace TSHon 09-28-2022 TSH 1.091 uIU/mL Normal 0.358-3.740 [facility] Comment on above: Performed By: #### C MP, LIPA, TSH, BNP, CMADM #### [facility] [id number] Dank Lovelace XR CHEST 1 Von [...] SENAIT KELSEY Date: 2022-09-28 20:42 Normal [facility] Echocardiogramon 09-17-[address], [address] [address] TRANSTHORACIC ECHOCARDIOGRAM REPORT Patient Name: JESUS Recio Physician: [id number] Yuriy Conway MD, [facility] Study Date: 09/17/2022 Referring YURIY CONWAY Physician: MRN/PID: [id number] PCP: Wojciech Treivño MD Accession/Order#: [id number] Department [facility] Location: Date of : 1955 Fellow: Gender: F Nurse: Rima Nesbitt RN Admit Date: Bar Staff: Yulia Ayers RDCS, RVT Height: 170.18 cm CC Report to: Weight: 112.04 kg Study Type: Echocardiogram BSA: 2.21 m2 Blood Pressure: 114 /72 mmHg Diagnosis/ICD: I48.0-Paroxysmal atrial fibrillation; I71.20-Thoracic aortic aneurysm, without rupture, unspecified Indication: Atrial Fibrillation/Flutter-s /p Ablation, HTN, Hyperlipidemia, Lupus, MONI, Obesity, Hyperparatyroid Disease-s/p Resection Procedure/CPT: Echo Complete w Full Doppler-[id number] Study Detail: The following Echo studies were [...] AoV Mean P.0 mmHg (1.7-11.5mmHg) LVOT Max Vincent: 0.84 m/s (<=1.1m/s) AoV VTI: 41.10 cm [...] 30mmHg) PULMONIC VALVE: Normal Ranges: PV Max Vincent: 0.7 m/s (0.6-0.9m/s) PV Max P.0 mmHg [id number] Yuriy Conway MD, FACC Electronically signed on 09/18/2022 at 5:16:[address] [facility] ([place], [place]) Covid-19 PCR (CVDTBH)on SARS-CoV-2 (COVID-19) RNA RAVIN+probe Ql (Unsp spec) Not detected Normal NOT DETECTED [facility] Comment on above: Result Comment: This test is not yet approved or cleared by the [place] FDA. When there are no FDA-approved or cleared tests available, and other criteria are met, FDA can make tests available under an emergency access mechanism called an Emergency Use Authorization (EUA). The EUA for this test is supported by the [employer] of Health and Human Service's (HHS's) declaration [...] consistent with SARS-CoV-2. Performed By: #### L IPA, MG, CMP #### [facility] [address] [place] [address] Dr. Dank Lovelace [facility] CARDIAC STRESS/REST INJE CTIONon 08-15-2022 [facility] CARDIAC STRESS/REST INJECTION Patient Name: JESUS WOLF STUDY: MYOCARDIAL PERFUSION STRESS TEST WITH LEXISCAN Performing facility: [facility], [address] [place] [address], [address], [address] [place] [id number] [facility] Provider: Yuriy Conway MD, [facility] PCP: Dr. Treviño Supervising provider: Dennise Danielson INDICATION: HTN Hyperlipidemia A-fib Pre-operative risk assessment for Parathyroid scheduled at [facility] on 08-27-22. HISTORY: Gender: F; Age: 67 y/o ; Height: 170.1 cm; Weight: 123.1 kg. High Cholesterol; Arrhythmias; HTN; Lupus Denies smoking. COMPARISON: No comparison. ACCESSION NUMBER(S): [id number]; [id number]; [id number] ORDERING CLINICIAN: YURIY CONWAY TECHNIQUE: TWO DAY [...] Electronically signed by: ALINE SOUZA MD Normal [facility] ([place], [place]) No Panel Informationon 08-15 Normal -[facility] Work Phone: Office Visit [...] Status:Hold For - Scheduling,Retrospecti ve Authorization; Requested for:[id number]; Class 2 severe obesity with serious comorbidity and body mass index (BMI) of 38.0 to 38.9 in adult Healthy Weight Tips; Status:Complete - Retrospective Authorization; Done: [id number] Some eating tips that can help you lose weight.; Status:Complete - Retrospective Authorization; Done: [id number] Essential hypertension, benign, Hyperlipidemia, Paroxysmal atrial fibrillation, Preoperative clearance NM Cardiac Stress/Rest Nuclear Med Order; Status:Hold For - Scheduling,Retrospecti ve Authorization; Requested for:[id number]; Radiologist to Determine Optimal Study : Y What are the patient's signs and symptoms? : preop, paf, hdl, htn Paroxysmal atrial fibrillation IO EKG Electrocardiogram- 12 Lead; Status:Complete; Done: [id number] SocHx: Never a smoker Tobacco Use Screening; Status:Complete; Done: [id number] Patient Instructions Please bring all medicines, vitamins, [...] scheduled in August for parathyroid surgery at [facility], they will be faxing request for clearance. Follow up in 1 year. Chief Complaint JESUS WOLF is being seen for an annual follow-up of. Patient is in the office after more than 2 years hiatus where she follows with the [facility] cardiology. She is in need for cardiac clearance prior to surgery. The patient has done well in the last couple of years but was not very happy with the care she was receiving at the [facility]. She had ablation for atrial fibrillation couple years back at [facility] with Dr. Chino with no recurrences. She is not on antiarrhythmic therapy but has been on anticoagulation with Eliquis. She has no indication previous coronary heart disease but never had a stress test or cardiac catheterization. Her last echocardiogram from September 2021 at the [facility] revealed mildly dilated ascending aorta at 4.6 [...] radiofrequency ablation with pulmonary vein isolation at [facility] in 2019. She will continue on Eliquis [...] 8. Systemic Lupus managed by rheumatology at [facility] on multiple medications and stable 9. Hypercalcemia [...] past medication was advised. Yuriy Conway MD, [facility] Surgical History Problems History of Appendectomy History of Cyst excision History of Foot surgery History of Hip replacement History of Tonsillectomy Past Medical History Problems History of Diastolic heart failure (428.30) (I5 (more content not included)... Normal [facility] Tobacco Screening.on 022 Adult depression screening assessment No -[facility] [address] DO Work Phone: Fall risk assessment a) No falls within the last year -[facility]-Saritha [address] 250 DO Work Phone: Tobacco use status [facility] b) No M -[facility]-[address] 250 DO Work Phone: No Panel Informationon 07-07 [facility] Comprehensive metabolic 2000 panelon 06-12-2022 Albumin [Mass/Vol] 4.2 g/dL 3.9 - 4.9 g/dL [facility] ALP [Catalytic activity/Vol] 134 U/L High 34 - 123 U/L [facility] ALT [Catalytic activity/Vol] 20 U/L 7 - 38 U/L [facility] Anion gap [Moles/Vol] 11 mmol/L 9 - 18 mmol/L [facility] AST [Catalytic activity/Vol] 23 U/L 13 - 35 U/L [facility] Bilirubin [Mass/Vol] 0.5 mg/dL 0.2 - 1 .3 mg/dL [facility] Calcium [Mass/Vol] 10.4 mg/dL High 8.5 - 10. 2 mg/dL [facility] Chloride [Moles/Vol] 109 mmol/L High 97 - 10 5 mmol/L [facility] CO2 [Moles/Vol] 22 mmol/L 22 - 30 mmol/L [facility] Creatinine [Mass/Vol] 1.27 mg/dL High 0.58 - 0.96 mg/dL [facility] Estimated Glomerular Filtration Rate 47 mL/min/1.73m Low >=60 mL/min/1.73m [facility] Glucose [Mass/Vol] 104 mg/dL High 74 - 99 mg/dL [facility] Potassium [Moles/Vol] 5.6 mmol/L High 3.7 - 5.1 mmol/L [facility] Protein [Mass/Vol] 5.8 g/dL Low 6.3 - 8.0 g/dL [facility] Sodium [Moles/Vol] 142 mmol/L 136 - 144 mmol/L [facility] Urea nitrogen [Mass/Vol] 33 mg/dL High 7 - 21 mg/dL [facility] PTH INTACT BLDon 06-12-2022 Parathyrin.intact [Mass/Vol] 89 pg/mL High 15 - 65 pg/mL [facility] 1,25-dihydroxyvitamin D3 [Ma ss/Vol]on 04-22-2022 1,25 Dihydroxy Vitamin Total 35.6 pg/mL 19.9 - 79.3 pg/mL [facility] VITAMIN D 25 HYDROXYon 04-22 25-hydroxyvitamin D3 [Mass/Vol] 58.2 ng/mL 31.0 - 80.0 ng/mL [facility] PTH INTACT BLDon 04-18-2022 Parathyrin.intact [Mass/Vol] 83 pg/mL High 15 - 65 pg/mL [facility] DXA-AXIAL SKELETONon 022 LOWEST T-SCORE -2.1 [facility] 2019 NOVEL CORONAVIRUS (COVI D-19)on 03-13-2022 SARS-CoV-2 (COVID-19) RNA RAVIN+probe Ql (Unsp spec) Negative [facility] CBC W Auto Differential pane l (Bld)on 03-13-2022 Abs Immature Gran <0.03 <0.10 k/uL [facility] Basophils (Bld) [#/Vol] 0.06 10*3/uL <0.11 k/uL [facility] Basophils/100 WBC (Bld) 0.9 % C [facility] Differential cell count method Nom (Bld) Auto [facility] Eosinophils (Bld) [#/Vol] 0.31 10*3/uL <0.46 k/uL [facility] Eosinophils/100 WBC (Bld) 4.5 % [facility] Erythrocyte distribution width (RBC) [Ratio] 12.4 % 11.5 - 15.0 % [facility] Hematocrit (Bld) [Volume fraction] 41.8 % 36.0 - 46.0 % [facility] Hemoglobin (Bld) [Mass/Vol] 13.8 g/dL 11.5 - 15.5 g/dL [facility] Immature Gran % 0.3 % [facility] Lymphocytes (Bld) [#/Vol] 2.00 10*3/uL 1.00 - 4.00 k/uL [facility] Lymphocytes/100 WBC (Bld) 29.2 % [facility] MCH (RBC) [Entitic mass] 32.5 pg 26.0 - 34.0 pg [facility] MCHC (RBC) [Mass/Vol] 33.0 g/dL 30.5 - 36.0 g/dL [facility] MCV (RBC) [Entitic vol] 98.4 fL 80.0 - 100.0 fL [facility] Monocytes (Bld) [#/Vol] 0.94 10*3/uL High <0.87 k/uL [facility] Monocytes/100 WBC (Bld) 13.7 % [facility]roph[facility] ([facility] [#/Vol] 3.52 10*3/uL 1.45 - 7.50 k/uL [facility] Neutrophils/100 WBC (Bld) 51.4 % [facility] Nucleated RBC (Bld) [#/Vol] 10*3/uL <0.01 k/uL [facility] Nucleated RBC/100 WBC (Bld) [Ratio] 0.0 /100 WBC [facility] Platelet mean volume (Bld) [Entitic vol] 10.5 fL 9.0 - 12.7 fL [facility] Platelets (Bld) [#/Vol] 254 10*3/uL 150 - 400 k/uL [facility] RBC (Bld) [#/Vol] 4.25 10*6/uL 3.90 - 5.2 0 m/uL [facility] WBC (Bld) [#/Vol] 6.85 10*3/uL 3.70 - 11. 00 k/uL [facility] Comprehensive metabolic 2000 panelon 03-13-2022 Albumin [Mass/Vol] 4.3 g/dL 3.9 - 4.9 g/dL [facility] ALP [Catalytic activity/Vol] 112 U/L 34 - 123 U/L [facility] ALT [Catalytic activity/Vol] 30 U/L 7 - 38 U/L [facility] Anion gap [Moles/Vol] 10 mmol/L 9 - 18 mmol/L [facility] AST [Catalytic activity/Vol] 32 U/L 13 - 35 U/L [facility] Bilirubin [Mass/Vol] 0.6 mg/dL 0.2 - 1 .3 mg/dL [facility] Calcium [Mass/Vol] 11.0 mg/dL High 8.5 - 10. 2 mg/dL [facility] Chloride [Moles/Vol] 105 mmol/L 97 - 10 5 mmol/L [facility] CO2 [Moles/Vol] 23 mmol/L 22 - 30 mmol/L [facility] Creatinine [Mass/Vol] 1.01 mg/dL High 0.58 - 0.96 mg/dL [facility] Estimated Glomerular Filtration Rate 62 mL/min/1.73m >=60 mL/min/1.73m [facility] Glucose [Mass/Vol] 86 mg/dL 74 - 99 mg/dL [facility] Potassium [Moles/Vol] 5.0 mmol/L 3.7 - 5.1 mmol/L [facility] Protein [Mass/Vol] 6.4 g/dL 6.3 - 8.0 g/dL [facility] Sodium [Moles/Vol] 138 mmol/L 136 - 144 mmol/L [facility] Urea nitrogen [Mass/Vol] 25 mg/dL High 7 - 21 mg/dL [facility] ESR Westergren method (Bld) [Velocity]on 03-13-2022 ESR (Bld) [Velocity] 10 mm/h 0 - 20 mm/hr [facility] - Chemistry and C hemistry - challengeon 03-13-2022 CRP [Mass/Vol] 0.4 mg/dL <0.9 mg/dL [facility] - Hematology and Cell countson 03-13-2022 Complement C3 [Mass/Vol] 167 mg/dL High 86 - 166 mg/dL [facility] Complement C4 [Mass/Vol] 38 mg/dL 13 - 46 mg/dL [facility] CBC AUTO DIFFon 02-13-2022 BASO # 0.1 103/ul Normal 0.0-0.1 [facility] Comment on above: Performed By: #### L IPA, MG, CMP #### [facility] [address] [place] [address] Dr. Dank Lovelace Basophils/100 WBC (Bld) 0.4 % Normal 0.2-2.0 [facility] Comment on above: Performed By: #### L IPA, MG, CMP #### [facility] [address] [place] [address] Dr. Dank Lovelace EO # 0.2 103/ul Normal 0.0-0.7 [facility] Comment on above: Performed By: #### L IPA, MG, CMP #### [facility] [address] [place] [address] Dr. Dank Lovelace Eosinophils/100 WBC (Bld) 2.0 % Normal 0.9-7.0 [facility] Comment on above: Performed By: #### L IPA, MG, CMP #### [facility] [address] [place] [address] Dr. Dank Lovelace Erythrocyte distribution width (RBC) [Ratio] 12.1 % Normal 11.0-15.0 [facility] Comment on above: Performed By: #### L IPA, MG, CMP #### [facility] [address] [place] [address] Dr. Dank Lovelace Hematocrit (Bld) [Volume fraction] 48.6 % Critically high 36.0-48.0 [facility] Comment on above: Performed By: #### L IPA, MG, CMP #### [facility] [address] [place] [address] Dr. Dank Lovelace Hemoglobin (Bld) [Mass/Vol] 16.2 g/dL Critically high 12.0-16.0 [facility] Comment on above: Performed By: #### L IPA, MG, CMP #### [facility] [address] [place] [address] Dr. Dank Lovelace IG # 0.06 10e3/ul Critically high 0.00-0.03 [facility] Comment on above: Performed By: #### L IPA, MG, CMP #### [facility] [address] [place] [address] Dr. Dank Lovelace IG % 0.5 % Normal 0.0-0.5 [facility] Comment on above: Performed By: #### L IPA, MG, CMP #### [facility] [address] [place] [address] Dr. Dank Lovelace LYMPH # 1.9 103/ul Normal 1.2-3.8 [facility] Comment on above: Performed By: #### L IPA, MG, CMP #### [facility] [address] [place] [address] Dr. Dank Lovelace Lymphocytes/100 WBC (Bld) 16.0 % Critically low 20.5-60.0 [facility] Comment on above: Performed By: #### L IPA, MG, CMP #### [facility] [address] [place] [address] Dr. Dank Lovelace MANUAL DIFF REQ NO Normal [facility] Comment on above: Performed By: #### L IPA, MG, CMP #### [facility] [address] [place] [address] Dr. Dank Lovelace MCH (RBC) [Entitic mass] 32.3 pg Normal 26.7-34.0 [facility] Comment on above: Performed By: #### L IPA, MG, CMP #### [facility] [address] [place] [address] Dr. Dank Lovelace MCHC (RBC) [Mass/Vol] 33.3 g/dL Normal 29.9-35.2 [facility] Comment on above: Performed By: #### L IPA, MG, CMP #### [facility] [address] [place] [address] Dr. Dank Lovelace MCV (RBC) [Entitic vol] 97.0 fL Normal 81.0-99.0 [facility] Comment on above: Performed By: #### L IPA, MG, CMP #### [facility] [address] [place] [address] Dr. Dank Lovelace MONO # 1.3 103/ul Critically high 0.3-0.8 [facility] Comment on above: Performed By: #### L IPA, MG, CMP #### [facility] [address] [place] [address] Dr. Dank Lovelace Monocytes/100 WBC (Bld) 11.2 % Normal 1.7-12.0 [facility] Comment on above: Performed By: #### L IPA, MG, CMP #### [facility] [address] [place] [address] Dr. Dank Lovelace NEUT # 8.2 103/ul Critically high 1.4-6.5 [facility] Comment on above: Performed By: #### L IPA, MG, CMP #### [facility] [address] [place] [address] Dr. Dank Lovelace Neutrophils/100 WBC (Bld) 69.9 % Normal 43.0-75.0 [facility] Comment on above: Performed By: #### L IPA, MG, CMP #### [facility] [address] [place] [address] Dr. Dank Lovelace Platelet mean volume (Bld) [Entitic vol] 10.0 fL Normal 9.5-13.5 [facility] Comment on above: Performed By: #### L IPA, MG, CMP #### [facility] [address] [place] [address] Dr. Dank Lovelace PLT 317 103/ul Normal 150-450 [facility] Comment on above: Performed By: #### L IPA, MG, CMP #### [facility] [address] [place] [address] Dr. Dank Lovelace RBC 5.01 106/ul Normal 4.20-5.40 [facility] Comment on above: Performed By: #### L IPA, MG, CMP #### [facility] [address] [place] [address] Dr. Dank Lovelace WBC 11.7 103/ul Critically high 4.0-11.0 [facility] Comment on above: Performed By: #### L IPA, MG, CMP #### [facility] [address] [place] [address] Dr. Dank Lovelace ER URINE PROFILEon 2 Bilirubin Ql (U) Negative Normal NEGATIVE [facility] Comment on above: Performed By: #### E RUR #### [facility] [address] [place] [address] Dr. Dank Lovelace Clarity (U) CLEAR Normal CLEAR [facility] Comment on above: Performed By: #### E RUR #### [facility] [address] [place] [address] Dr. Dank Lovelace Color (U) LT. YELLOW Normal YELLOW [facility] Comment on above: Performed By: #### E RUR #### [facility] [address] [place] [address] Dr. Dank Lovelace ERUAHD A micrscopic examination will be performed if indicated. Normal [facility] Comment on above: Performed By: #### E RUR #### [facility] [address] [place] [address] Dr. Dank Lovelace Glucose Ql (U) Negative Normal NEGATIVE [facility] Comment on above: Performed By: #### E RUR #### [facility] [address] [place] [address] Dr. Dank Lovelace Hemoglobin Ql (U) Negative Normal NEGATIVE [facility] Comment on above: Performed By: #### E RUR #### [facility] [address] [place] [address] Dr. Dank Lovelace Ketones Ql (U) Negative Normal NEGATIVE [facility] Comment on above: Performed By: #### E RUR #### [facility] [address] [place] [address] Dr. Dank Lovelace LEUKOCYTES Negative Normal NEGATIVE [facility] Comment on above: Performed By: #### E RUR #### [facility] [address] [place] [address] Dr. Dank Lovelace Nitrite Ql (U) Negative Normal NEGATIVE [facility] Comment on above: Performed By: #### E RUR #### [facility] [address] [place] [address] Dr. Dank Lovelace pH (U) 5.5 [pH] Normal 5-9 [facility] Comment on above: Performed By: #### E RUR #### [facility] [address] [place] [address] Dr. Dank Lovelace SPEC GRAVITY 1.015 Normal 1.005-<=1.[address] [place] [address] Comment on above: Performed By: #### E RUR #### [facility] [address] [place] [address] Dr. Dank Lovelace UA PROTEIN Negative Normal NEGATIVE/ TRACE [facility] Comment on above: Performed By: #### E RUR #### [facility] [address] [place] [address] Dr. Dank Lovelace UR MICRO IND NOT INDICATED Normal [facility] Comment on above: Performed By: #### E RUR #### [facility] [address] [place] [address] Dr. Dank Lovelace Urobilinogen Qn (U) 0.2 {Simon'U}/dL Normal 0.2 - 1. 0 [facility] Comment on above: Performed By: #### E RUR #### [facility] [address] [place] [address] Dr. Dank Lovelace LIPASEon 02-13-2022 Lipase [Catalytic activity/Vol] 39.0 U/L Critically low 73.0-393.0 [facility] Comment on above: Performed By: #### L IPA, MG, CMP #### [facility] [address] [place] [address] Dr. Dank Lovelace MAGNESIUMon 02-13-2022 Magnesium [Mass/Vol] 1.4 mg/dL Critically low 1.8-2.4 [facility] Comment on above: Performed By: #### L IPA, MG, CMP #### [facility] [address] [place] [address] Dr. Dank Lovelace PROF 14(COMP METB)on 022 Albumin [Mass/Vol] 3.8 g/dL Normal 3.4-5.0 [facility] Comment on above: Performed By: #### L IPA, MG, CMP #### [facility] [address] [place] [address] Dr. Dank Lovelace Albumin/Globulin [Mass ratio] 0.9 {ratio} Normal [facility] Comment on above: Performed By: #### L IPA, MG, CMP #### [facility] [address] [place] [address] Dr. Dank Lovelace ALP [Catalytic activity/Vol] 150 U/L Critically high 46-116 [facility] Comment on above: Performed By: #### L IPA, MG, CMP #### [facility] [address] [place] [address] Dr. Dank Lovelace ALT [Catalytic activity/Vol] 31 U/L Normal 14-59 [facility] Comment on above: Performed By: #### L IPA, MG, CMP #### [facility] [address] [place] [address] Dr. Dank Lovelace Anion gap [Moles/Vol] 16.4 mmol/L Normal [facility] Comment on above: Performed By: #### L IPA, MG, CMP #### [facility] [address] [address] [address] Dnak Lovelace AST [Catalytic activity/Vol] 18 U/L Normal 15-37 [facility] Comment on above: Performed By: #### L IPA, MG, CMP #### [facility] [address] [place] [address] Dr. Dank Lovelace Bilirubin [Mass/Vol] 0.4 mg/dL Normal 0.2-1.0 [facility] Comment on above: Performed By: #### L IPA, MG, CMP #### [facility] [address] [place] [address] Dr. Dank Lovelace Calcium [Mass/Vol] 11.7 mg/dL Critically high 8.5-10.1 [facility] Comment on above: Performed By: #### L IPA, MG, CMP #### [facility] [address] [place] [address] Dr. Dank Lovelace Chloride [Moles/Vol] 103 mmol/L Normal 98-107 [facility] Comment on above: Performed By: #### L IPA, MG, CMP #### [facility] [address] [place] [address] Dr. Dank Lovelace CO2 [Moles/Vol] 20.4 mmol/L Critically low 21.0-32.0 [facility] Comment on above: Performed By: #### L IPA, MG, CMP #### [facility] [address] [place] [address] Dr. Dank Lovelace Creatinine [Mass/Vol] 1.14 mg/dL Critically high 0.55-1.02 [facility] Comment on above: Performed By: #### L IPA, MG, CMP #### [facility] [address] [place] [address] Dr. Dank Lovelace EGFR-AF SUDANESE 58 mL/min/1.73m2 Critically low >=60 [facility] Comment on above: Performed By: #### L IPA, MG, CMP #### [facility] [address] [address] [address] Dank Lovelace EGFR-NON AF SUDANESE 48 mL/min/1.73m2 Critically low >=60 [facility] Comment on above: Performed By: #### L IPA, MG, CMP #### [facility] [address] [address] [address] Dank Lovelace Globulin (S) [Mass/Vol] 4.4 g/dL Normal [facility] Comment on above: Performed By: #### L IPA, MG, CMP #### [facility] [address] [address] [address] Dank Lovelace Glucose [Mass/Vol] 124 mg/dL Critically high 74-106 [facility] Comment on above: Performed By: #### L IPA, MG, CMP #### [facility] [address] [place] [address] Dr. Dank Lovelace Potassium [Moles/Vol] 4.8 mmol/L Normal 3.5-5.1 [facility] Comment on above: Performed By: #### L IPA, MG, CMP #### [facility] [address] [address] [address] Dank Lovelace Protein [Mass/Vol] 8.2 g/dL Normal 6.4-8.2 [facility] Comment on above: Performed By: #### L IPA, MG, CMP #### [facility] [address] [address] [address] Dank Lovelace Sodium [Moles/Vol] 135 mmol/L Critically low 136-145 [facility] Comment on above: Performed By: #### L IPA, MG, CMP #### [facility] [address] [address] [address] Dank Lovelace Urea nitrogen [Mass/Vol] 28.0 mg/dL Critically high 7.0-18.0 [facility] Comment on above: Performed By: #### L IPA, MG, CMP #### [facility] [address] [address] [address] Dank Lovelace Urea nitrogen/Creatinine [Mass ratio] 24.6 mg/mg Normal [facility] Comment on above: Performed By: #### L IPA, MG, CMP #### [facility] [address] [address] [address] Dank Lovelace Activated partial thrombopla stin time (aPTT) in platelet poor plasma by coagulation aOrdered By: Hussain Cat on 02-08-2022 aPTT Coag (PPP) [Time] 34.7 s 25.1-36.5 [facility] Albumin [Mass/volume] in Ser um or PlasmaOrdered By: Hussain Cat on 02-08-2022 Albumin [Mass/Vol] 3.5 g/dL 3.2-5.5 [facility] Basophils Auto (Bld) [#/Vol] Ordered By: Hussain Cat on 02-08-2022 Basophils (Bld) [#/Vol] 0.0 10*3/uL 0.0-0.2 [facility] Basophils/100 WBC Auto (Bld) Ordered By: Hussain Cat on 02-08-2022 Basophils/100 WBC (Bld) 0.0 % [facility] Blood hemoglobin measurement (mass/volume)Ordered By: Hussain Cat on 02-08-2022 Hemoglobin (Bld) [Mass/Vol] 13.3 g/dL 11.8-15.4 [facility] Blood leukocytes automated c ount (number/volume)Ordered By: Hussain Cat on 02-08-2022 WBC (Bld) [#/Vol] 11.8 10*3/uL 4.5-11.0 [facility] Creatinine and Glomerular fi ltration rate.predicted panel (S/P/Bld)Ordered By: Hussain Cat on 02-08-2022 Creatinine [Mass/Vol] 0.90 mg/dL 0.44-1.03 [facility] Eosinophils Auto (Bld) [#/Vo l]Ordered By: Hussain Cat on 02-08-2022 Eosinophils (Bld) [#/Vol] 0.0 10*3/uL 0.0-0.45 [facility] Eosinophils/100 WBC Auto (Bl d)Ordered By: Hussain Cat on 02-08-2022 Eosinophils/100 WBC (Bld) 0.0 % [facility] Erythrocyte distribution wid th Auto (RBC) [Ratio]Ordered By: Hussain Cat on 02-08-2022 Erythrocyte distribution width (RBC) [Ratio] 13.0 % 11.9-15.3 [facility] Erythrocyte sedimentation ra te by Photometric methodOrdered By: Rachelle Frazier on 02-08-2022 ESR Photometric method (Bld) [Velocity] 40 mm/hr 0-29 [facility] Estimated glomerular filtrat ion rate (GFR) non- AmericanOrdered By: Hussain Cat on 02-08-2022 GFR/1.73 sq M.predicted among non-blacks MDRD (S/P/Bld) [Vol rate/Area] > 60 mL/Min [facility] Folate [Mass/volume] in Seru m or PlasmaOrdered By: Hussain Cat on 02-08-2022 Folate [Mass/Vol] ng/mL >5.9 [facility] Comment on above: Folate reference ran ge: >5.9 ng/ml The WHO technical consultation on folate and vitamin b12 deficiencies has determined that folate concentrations less than 4 ng/ml are considered deficient. Globulin Calc (S) [Mass/Vol] Ordered By: Hussain Cat on 02-08-2022 Globulin (S) [Mass/Vol] 2.7 g/dL [facility] Hematocrit Auto (Bld) [Volum e fraction]Ordered By: Hussain Cat on 02-08-2022 Hematocrit (Bld) [Volume fraction] 39.0 % 34.0-46.4 [facility] - Chemistry and C hemistry - challengeOrdered By: Hussain Cat on 02-08-2022 Cobalamin (Vitamin B12) [Mass/Vol] 486 pg/mL 180-914 [facility] Magnesium [Mass/Vol] 1.4 mg/dL 1.6-2.6 [facility] - CoagulationOrde red By: Hussain Cat on 02-08-2022 PT Coag (PPP) [Time] 16.0 s 9.0-12.9 [facility] - Hematology and Cell countsOrdered By: Hussain Cat on 02-08-2022 Nucleated RBC/100 WBC (Bld) [Ratio] 0.0 % 0-0.5 [facility] Lymphocytes Auto (Bld) [#/Vo l]Ordered By: Hussain Cat on 02-08-2022 Lymphocytes (Bld) [#/Vol] 0.7 10*3/uL 1.00-4.8 [facility] Lymphocytes/100 WBC Auto (Bl d)Ordered By: Hussain Cat on 02-08-2022 Lymphocytes/100 WBC (Bld) 6.1 % [facility] MCH Auto (RBC) [Entitic mass ]Ordered By: Hussain Cat on 02-08-2022 MCH (RBC) [Entitic mass] 32.7 pg 24.7-34.3 [facility] MCHC Auto (RBC) [Mass/Vol]Or dered By: Hussain Cat on 02-08-2022 MCHC (RBC) [Mass/Vol] 34.0 g/dL 32.0-35.0 [facility] MCV Auto (RBC) [Entitic vol] Ordered By: Hussain Cat on 02-08-2022 MCV (RBC) [Entitic vol] 96.2 fL 80-100 [facility] Monocytes Auto (Bld) [#/Vol] Ordered By: Hussain Cat on 02-08-2022 Monocytes (Bld) [#/Vol] 0.3 10*3/uL 0.0-0.8 [facility] Monocytes/100 WBC Auto (Bld) Ordered By: Hussain Cat on 02-08-2022 Monocytes/100 WBC (Bld) 2.5 % [facility] Neutrophils Auto (Bld) [#/Vo l]Ordered By: Hussain Cat on 02-08-2022 Neutrophils (Bld) [#/Vol] 10.8 10*3/uL 1.8-7.7 [facility] Neutrophils/100 WBC Auto (Bl d)Ordered By: Hussain Cat on 02-08-2022 Neutrophils/100 WBC (Bld) 91.4 % [facility] No Panel InformationOrdered By: Hussain Cat on 02-08-2022 25-Hydroxy Vitamin D Total 66.1 ng/mL 30-100 [facility] Comment on above: VITAMIN D STATUS 25( [place])VITAMIN D RANGE (ng/mL) Deficient <20 Insufficient 20 to <30 Sufficient 30 to 100 Reference: Geraldine PETERSON,[place], Raegan CLIFFORD, et al. Evaluation,treatment, and prevention of vitamin D deficiency; an Endocrine Society clinical practice guideline. JCEM. 2010; 96(7):1911-30. Estimated GFR () > 60 mL/Min [facility] Comment on above: GFR estimated refere nce range: According to KDOQI guidelines, <60 ml/min/1.73m2 is sufficient to diagnose a patient with chronic kidney disease. Pharmacy Creatinine Clearance (Chem 80.69 [facility] Platelet mean volume Auto (B ld) [Entitic vol]Ordered By: Hussain Cat on 02-08-2022 Platelet mean volume (Bld) [Entitic vol] 8.6 fL 6.3-10.7 [facility] Platelet poor plasma interna tional normalized ratio (INR) by coagulation assay (relatOrdered By: Hussain Cat on 02-08-2022 INR Coag (PPP) [Relative time] 1.4 {INR} [facility] Comment on above: INR Therapeutic Rang e [...] 02-08-2022 Platelets (Bld) [#/Vol] 276 10*3/uL 150-450 [facility] Protein [Mass/volume] in Ser um or PlasmaOrdered By: Hussain Cat on 02-08-2022 Protein [Mass/Vol] 6.2 g/dL 6.1-7.9 [facility] RBC Auto (Bld) [#/Vol]Ordere d By: Hussain Cat on 02-08-2022 RBC (Bld) [#/Vol] 4.06 10*6/uL 3.60-5.00 [facility] Serum or plasma C reactive p rotein measurement (mass/volume)Ordered By: Rachelle Frazier on 02-08-2022 CRP [Mass/Vol] 3.9 mg/dL 0.0-1.0 [facility] Serum or plasma alanine chapman otransferase measurement without P-5'-P (enzymatic activiOrdered By: Hussain Cat on 02-08-2022 ALT No additional P-5'-P [Catalytic activity/Vol] 24 U/L 10-60 [facility] Serum or plasma albumin/glob ulin mass ratioOrdered By: Hussain Cat on 02-08-2022 Albumin/Globulin [Mass ratio] 1.3 {ratio} [facility] Serum or plasma alkaline van sphatase measurement (enzymatic activity/volume)Ordered By: Hussain Cat on 02-08-2022 ALP [Catalytic activity/Vol] 87 U/L 32-92 [facility] Serum or plasma aspartate am inotransferase measurement (enzymatic activity/volume)Ordered By: Hussain Cat on 02-08-2022 AST [Catalytic activity/Vol] 22 U/L 10-42 [facility] Serum or plasma calcium kelli urement (mass/volume)Ordered By: Hussain Cat on 02-08-2022 Calcium [Mass/Vol] 10.2 mg/dL 8.2-10.2 [facility] Serum or plasma chloride duy surement (moles/volume)Ordered By: Hussain Cat on 02-08-2022 Chloride [Moles/Vol] 103 mmol/L 95-114 [facility] Serum or plasma glucose kelli urement (mass/volume)Ordered By: Hussain Cat on 02-08-2022 Glucose [Mass/Vol] 119 mg/dL 70-100 [facility] Comment on above: ADA recommended refe rence range Random Glucose Reference Range is dependent on time and content of last meal. Glucose of more than 200 mg/dL in a nonstressed, ambulatory subject supports the diagnosis of Diabetes Mellitus. Serum or plasma potassium me asurement (moles/volume)Ordered By: Hussain Cat on 02-08-2022 Potassium [Moles/Vol] 4.6 mmol/L 3.5-5.1 [facility] Serum or plasma sodium measu rement (moles/volume)Ordered By: Hussain Cat on 02-08-2022 Sodium [Moles/Vol] 139 mmol/L 136-146 [facility] Serum or plasma total biliru bin measurement (mass/volume)Ordered By: Hussain Cat on 02-08-2022 Bilirubin [Mass/Vol] 0.8 mg/dL 0.3-1.2 [facility] Serum or plasma total carbon dioxide measurement (moles/volume)Ordered By: Hussain Cat on 02-08-2022 CO2 [Moles/Vol] 22.3 mmol/L 22.0-30.0 [facility] Serum or plasma urea nitroge n measurement (mass/volume)Ordered By: Hussain Cat on 02-08-2022 Urea nitrogen [Mass/Vol] 24 mg/dL 9-23 [facility] TSH DL <= 0.005 mIU/L QnOrde red By: Hussain Cat on 02-08-2022 TSH Qn 1.31 m[IU]/L 0.45-5.33 [facility] Activated partial thrombopla stin time (aPTT) in platelet poor plasma by coagulation aOrdered By: Pardeep Barraza on 02-07-2022 aPTT Coag (PPP) [Time] 35.5 s 25.1-36.5 [facility] Automated erythrocytes count in urine sediment (number/area)Ordered By: Pardeep Barraza on 02-07-2022 RBC Auto (Urine sed) [#/Area] 0-1 [HPF] [facility] Automated leukocytes count i n urine sediment (number/area)Ordered By: Pardeep Barraza on 02-07-2022 WBC Auto (Urine sed) [#/Area] 3-4 [HPF] [facility] Basophils Auto (Bld) [#/Vol] Ordered By: Pardeep Barraza on 02-07-2022 Basophils (Bld) [#/Vol] 0.1 10*3/uL 0.0-0.2 [facility] Basophils/100 WBC Auto (Bld) Ordered By: Pardeep Barraza on 02-07-2022 Basophils/100 WBC (Bld) 0.5 % [facility] Bilirubin Test strip Ql (U)O rdered By: Pardeep Barraza on 02-07-2022 Bilirubin Ql (U) Negative Negative [facility] Blood hemoglobin measurement (mass/volume)Ordered By: Pardeep Barraza on 02-07-2022 Hemoglobin (Bld) [Mass/Vol] 13.6 g/dL 11.8-15.4 [facility] Blood leukocytes automated c ount (number/volume)Ordered By: Pardeep Barraza on 02-07-2022 WBC (Bld) [#/Vol] 11.3 10*3/uL 4.5-11.0 [facility] COVID-19 Positive/NegativeOr dered By: Pardeep Barraza on 02-07-2022 SARS-CoV-2 (COVID-19) N gene RAVIN+probe Ql (Resp) Negative Negative [facility] Comment on above: Testing for SARS-CoV -2 by RT-PCR This test was developed and its performance characteristics determined by [employer] ([employer] and validated at the [facility]. This test has not been FDA cleared [...] (COVID-19) Ag IA.rapid Ql (Resp) Negative Negative [facility] Comment on above: This is a duplicate Samia SARS Antigen (JESUS) result to be used for statistical tracking purpose only. Color Auto (U)Ordered By: Nalini Barraza on 02-07-2022 Color (U) Dark yellow Yellow [facility] Creatine kinase [Enzymatic a ctivity/volume] in Serum or PlasmaOrdered By: Pardeep Barraza on 02-07-2022 CK [Catalytic activity/Vol] 154 U/L 22-269 [facility] Creatinine (Bld) [Mass/Vol]O rdered By: Hussain Cat on 02-07-2022 Creatinine [Mass/Vol] 1.0 mg/dL 0.6-1.3 [facility] Comment on above: ER/ESD physician is notified/shown all ISTAT results. Critical values may be confirmed by laboratory testing if deemed necessary by ER attending doctor. Creatinine and Glomerular fi ltration rate.predicted panel (S/P/Bld)Ordered By: Pardeep Barraza on 02-07-2022 Creatinine [Mass/Vol] 1.03 mg/dL 0.44-1.03 [facility] Eosinophils Auto (Bld) [#/Vo l]Ordered By: Pardeep Barraza on 02-07-2022 Eosinophils (Bld) [#/Vol] 0.2 10*3/uL 0.0-0.45 [facility] Eosinophils/100 WBC Auto (Bl d)Ordered By: Pardeep Barraza on 02-07-2022 Eosinophils/100 WBC (Bld) 1.8 % [facility] Erythrocyte distribution wid th Auto (RBC) [Ratio]Ordered By: Pardeep Barraza on 02-07-2022 Erythrocyte distribution width (RBC) [Ratio] 13.0 % 11.9-15.3 [facility] Estimated glomerular filtrat ion rate (GFR) non- AmericanOrdered By: Pardeep Barraza on 02-07-2022 GFR/1.73 sq M.predicted among non-blacks MDRD (S/P/Bld) [Vol rate/Area] 54 mL/Min [facility] Hematocrit Auto (Bld) [Volum e fraction]Ordered By: Pardeep Barraza on 02-07-2022 Hematocrit (Bld) [Volume fraction] 40.9 % 34.0-46.4 [facility] Ketones Auto test strip (U) [Mass/Vol]Ordered By: Pardeep Barraza on 02-07-2022 Ketones (U) [Mass/Vol] Negative [facility] and C hemistry - challengeOrdered By: Pardeep Barraza on 02-07-2022 Natriuretic peptide B (Bld) [Mass/Vol] 77.0 pg/mL 5-100 [facility] Laboratory - CoagulationOrde red By: Pardeep Barraza on 02-07-2022 PT Coag (PPP) [Time] 16.3 s 9.0-12.9 [facility] Laboratory - Hematology and Cell countsOrdered By: Pardeep Barraza on 02-07-2022 Nucleated RBC/100 WBC (Bld) [Ratio] 0.0 % 0-0.5 [facility] Laboratory - Microbiology an d Antimicrobial susceptibilityOrdered By: Pardeep Barraza on 02-07-2022 SARS-CoV-2 (COVID-19) RNA RAVIN+probe Ql (Unsp spec) N/A [facility] Laboratory - UrinalysisOrder ed By: Pardeep Barraza on 02-07-2022 Hyaline casts LM Ql (Urine sed) 0-8 [LPF] [facility] Lymphocytes Auto (Bld) [#/Vo l]Ordered By: Pardeep Barraza on 02-07-2022 Lymphocytes (Bld) [#/Vol] 2.1 10*3/uL 1.00-4.8 [facility] Lymphocytes/100 WBC Auto (Bl d)Ordered By: Pardeep Barraza on 02-07-2022 Lymphocytes/100 WBC (Bld) 18.9 % [facility] MCH Auto (RBC) [Entitic mass ]Ordered By: Pardeep Barraza on 02-07-2022 MCH (RBC) [Entitic mass] 32.4 pg 24.7-34.3 [facility] MCHC Auto (RBC) [Mass/Vol]Or dered By: Pardeep Barraza on 02-07-2022 MCHC (RBC) [Mass/Vol] 33.4 g/dL 32.0-35.0 [facility] MCV Auto (RBC) [Entitic vol] Ordered By: Pardeep Barraza on 02-07-2022 MCV (RBC) [Entitic vol] 97.0 fL 80-100 [facility] Monocytes Auto (Bld) [#/Vol] Ordered By: Pardeep Barraza on 02-07-2022 Monocytes (Bld) [#/Vol] 1.4 10*3/uL 0.0-0.8 [facility] Monocytes/100 WBC Auto (Bld) Ordered By: Pardeep Barraza on 02-07-2022 Monocytes/100 WBC (Bld) 12.2 % [facility] Neutrophils Auto (Bld) [#/Vo l]Ordered By: Pardeep Barraza on 02-07-2022 Neutrophils (Bld) [#/Vol] 7.5 10*3/uL 1.8-7.7 [facility] Neutrophils/100 WBC Auto (Bl d)Ordered By: Pardeep Barraza on 02-07-2022 Neutrophils/100 WBC (Bld) 66.6 % [facility] Nitrite Test strip Ql (U)Ord ered By: Pardeep Barraza on 02-07-2022 Nitrite Ql (U) Positive Negative [facility] No Panel InformationOrdered By: Pardeep Barraza on 02-07-2022 SARS Antigen (LFIA) [facility] Estimated GFR () > 60 mL/Min [facility] Comment on above: GFR estimated refere nce range: According to KDOQI guidelines, <60 ml/min/1.73m2 is sufficient to diagnose a patient with chronic kidney disease. Pharmacy Creatinine Clearance (Chem 70.36 [facility] No Panel InformationOrdered By: Hussain Cat on 02-07-2022 POC Estimated GFR > 60 [facility] Comment on above: GFR estimated refere nce range: According to KDOQI guidelines, <60 ml/min/1.73m2 is sufficient to diagnose a patient with chronic kidney disease. POC Estimated GFR Non- Amer 56 [facility] Platelet mean volume Auto (B ld) [Entitic vol]Ordered By: Pardeep Barraza on 02-07-2022 Platelet mean volume (Bld) [Entitic vol] 8.5 fL 6.3-10.7 [facility] Platelet poor plasma interna tional normalized ratio (INR) by coagulation assay (relatOrdered By: Pardeep Barraza on 02-07-2022 INR Coag (PPP) [Relative time] 1.4 {INR} [facility] Comment on above: INR Therapeutic Rang e [...] 4.5 Platelets Auto (Bld) [#/Vol] Ordered By: Pardeep Barraza on 02-07-2022 Platelets (Bld) [#/Vol] 273 10*3/uL 150-450 [facility] Protein Auto test strip (U) [Mass/Vol]Ordered By: Pardeep Barraza on 02-07-2022 Protein (U) [Mass/Vol] Negative Negative [facility] RBC Auto (Bld) [#/Vol]Ordere d By: Pardeep Barraza on 02-07-2022 RBC (Bld) [#/Vol] 4.21 10*6/uL 3.60-5.00 [facility] Serum or plasma calcium kelli urement (mass/volume)Ordered By: Pardeep Barraza on 02-07-2022 Calcium [Mass/Vol] 10.8 mg/dL 8.2-10.2 [facility] Serum or plasma chloride duy surement (moles/volume)Ordered By: Pardeep Barraza on 02-07-2022 Chloride [Moles/Vol] 105 mmol/L 95-114 [facility] Serum or plasma creatine kin ase MB (CKMB)/total creatine kinase (CK) ratio by calculaOrdered By: Pardeep Barraza on 02-07-2022 CK.MB Calc [Catalytic fraction] 1.4 % 0.00-2.50 [facility] Serum or plasma creatine kin ase MB measurement (mass/volume)Ordered By: Pardeep Barraza on 02-07-2022 CK.MB [Mass/Vol] 2.2 ng/mL 0.6-6.3 [facility] Serum or plasma glucose kelli urement (mass/volume)Ordered By: Pardeep Barraza on 02-07-2022 Glucose [Mass/Vol] 83 mg/dL 70-100 [facility] Comment on above: ADA recommended refe rence range Random Glucose Reference Range is dependent on time and content of last meal. Glucose of more than 200 mg/dL in a nonstressed, ambulatory subject supports the diagnosis of Diabetes Mellitus. Serum or plasma potassium me asurement (moles/volume)Ordered By: Pardeep Barraza on 02-07-2022 Potassium [Moles/Vol] 5.1 mmol/L 3.5-5.1 [facility] Serum or plasma sodium measu rement (moles/volume)Ordered By: Pardeep Barraza on 02-07-2022 Sodium [Moles/Vol] 139 mmol/L 136-146 [facility] Serum or plasma total carbon dioxide measurement (moles/volume)Ordered By: Pardeep Barraza on 02-07-2022 CO2 [Moles/Vol] 22.4 mmol/L 22.0-30.0 [facility] Serum or plasma urea nitroge n measurement (mass/volume)Ordered By: Pardeep Barraza on 02-07-2022 Urea nitrogen [Mass/Vol] 22 mg/dL 9-23 [facility] Specific gravity Auto test s trip (U) [Rel density]Ordered By: Pardeep Barraza on 02-07-2022 Specific gravity (U) [Rel density] 1.049 1.001-1.030 [facility] Squamous epithelial cells de tection in urine sediment by light microscopyOrdered By: Pardeep Barraza on 02-07-2022 Epithelial cells.squamous LM Ql (Urine sed) 5-9 [HPF] [facility] Troponin I.cardiac [Mass/vol ume] in Serum or Plasma by High sensitivity methodOrdered By: Pardeep Barraza on 02-07-2022 Troponin I.cardiac High sensitivity method [Mass/Vol] 16 pg/mL 0-15 [facility] Urine bacteria detection by automated methodOrdered By: Pardeep Barraza on 02-07-2022 Bacteria Auto Ql (U) 2+ None Seen [facility] Urine clarity by refractomet ry automatedOrdered By: Pardeep Barraza on 02-07-2022 Clarity Refractometry automated (U) Clear Clear [facility] Urine culture routineOrdered By: Pardeep Barraza on 02-07-2022 Bacteria identified Cx Nom (U) Escherichia coli [facility] Urine glucose measurement by automated test strip (mass/volume)Ordered By: Pardeep Barraza on 02-07-2022 Glucose Auto test strip (U) [Mass/Vol] Normal mg/dL Normal [facility] Urine hemoglobin detection b y automated test stripOrdered By: Pardeep Barraza on 02-07-2022 Hemoglobin Auto test strip Ql (U) Negative Negative [facility] Urine leukocyte esterase det ection by automated test stripOrdered By: Pardeep Barraza on 02-07-2022 Leukocyte esterase Auto test strip Ql (U) 2+ Negative [facility] Urine sediment renal epithel ial cell count by microscopy (number/high power field)Ordered By: Pardeep Barraza on 02-07-2022 Epithelial cells.renal LM.HPF (Urine sed) [#/Area] 1-2 [HPF] [facility] Urobilinogen Auto test strip (U) [Mass/Vol]Ordered By: Pardeep Barraza on 02-07-2022 Urobilinogen (U) [Mass/Vol] Normal mg/dL Normal [facility] pH Auto test strip (U)Ordere d By: Pardeep Barraza on 02-07-2022 pH (U) 5.0 [pH] 5.0-9.0 [facility] CBC W Auto Differential pane l (Bld)on 12-09-2021 Abs Immature Gran 0.03 k/uL <0.10 k/uL [facility] Basophils (Bld) [#/Vol] 0.04 10*3/uL <0.11 k/uL [facility] Basophils/100 WBC (Bld) 0.5 % [facility] Differential cell count method Nom (Bld) Auto [facility] Eosinophils (Bld) [#/Vol] 0.19 10*3/uL <0.46 k/uL [facility] Eosinophils/100 WBC (Bld) 2.5 % [facility] Erythrocyte distribution width (RBC) [Ratio] 13.7 % 11.5 - 15.0 % [facility] Hematocrit (Bld) [Volume fraction] 42.6 % 36.0 - 46.0 % [facility] Hemoglobin (Bld) [Mass/Vol] 13.8 g/dL 11.5 - 15.5 g/dL [facility] Immature Gran % 0.4 % [facility] Lymphocytes (Bld) [#/Vol] 1.69 10*3/uL 1.00 - 4.00 k/uL [facility] Lymphocytes/100 WBC (Bld) 22.4 % [facility] MCH (RBC) [Entitic mass] 32.1 pg 26.0 - 34.0 pg [facility] MCHC (RBC) [Mass/Vol] 32.4 g/dL 30.5 - 36.0 g/dL [facility] MCV (RBC) [Entitic vol] 99.1 fL 80.0 - 100.0 fL [facility] Monocytes (Bld) [#/Vol] 0.92 10*3/uL High <0.87 k/uL [facility] Monocytes/100 WBC (Bld) 12.2 % [facility] Neutrophils (Bld) [#/Vol] 4.66 10*3/uL 1.45 - 7.50 k/uL [facility] Neutrophils/100 WBC (Bld) 62.0 % [facility] Nucleated RBC (Bld) [#/Vol] 10*3/uL <0.01 k/uL [facility] Nucleated RBC/100 WBC (Bld) [Ratio] 0.0 /100 WBC [facility] Platelet mean volume (Bld) [Entitic vol] 10.5 fL 9.0 - 12.7 fL [facility] Platelets (Bld) [#/Vol] 231 10*3/uL 150 - 400 k/uL [facility] RBC (Bld) [#/Vol] 4.30 10*6/uL 3.90 - 5.2 0 m/uL [facility] WBC (Bld) [#/Vol] 7.53 10*3/uL 3.70 - 11. 00 k/uL [facility] Comprehensive metabolic 2000 panelon 12-09-2021 Albumin [Mass/Vol] 4.0 g/dL 3.9 - 4.9 g/dL [facility] ALP [Catalytic activity/Vol] 120 U/L 34 - 123 U/L [facility] ALT [Catalytic activity/Vol] 27 U/L 7 - 38 U/L [facility] Anion gap [Moles/Vol] 11 mmol/L 9 - 18 mmol/L [facility] AST [Catalytic activity/Vol] 25 U/L 13 - 35 U/L [facility] Bilirubin [Mass/Vol] 0.6 mg/dL 0.2 - 1 .3 mg/dL [facility] Calcium [Mass/Vol] 10.3 mg/dL High 8.5 - 10. 2 mg/dL [facility] Chloride [Moles/Vol] 109 mmol/L High 97 - 10 5 mmol/L [facility] CO2 [Moles/Vol] 19 mmol/L Low 22 - 30 mmol/L [facility] Creatinine [Mass/Vol] 1.02 mg/dL High 0.58 - 0.96 mg/dL [facility] Estimated Glomerular Filtration Rate 61 mL/min/1.73m >=60 mL/min/1.73m [facility] Glucose [Mass/Vol] 85 mg/dL 74 - 99 mg/dL [facility] Potassium [Moles/Vol] 4.6 mmol/L 3.7 - 5.1 mmol/L [facility] Protein [Mass/Vol] 6.1 g/dL Low 6.3 - 8.0 g/dL [facility] Sodium [Moles/Vol] 139 mmol/L 136 - 144 mmol/L [facility] Urea nitrogen [Mass/Vol] 26 mg/dL High 7 - 21 mg/dL [facility] ESR Westergren method (Bld) [Velocity]on 12-09-2021 ESR (Bld) [Velocity] 5 mm/h 0 - 20 mm/hr Cl [facility] Laboratory - Chemistry and C hemistry - challengeon 12-09-2021 CRP [Mass/Vol] 0.6 mg/dL <0.9 mg/dL [facility] Laboratory - Hematology and Cell countson 12-09-2021 Complement C3 [Mass/Vol] 154 mg/dL 86 - 166 mg/dL [facility] Complement C4 [Mass/Vol] 35 mg/dL 13 - 46 mg/dL [facility] CONVERTED SURGICAL PATHOLOGY on 09-13-2021 CONVERTED ADDENDA ADDENDUM This addendum is issued to report the results of immunohistochemical stains. The original diagnoses remain unchanged. Immunohistochemistry for Helicobacter pylori performed on the gastric biopsy is negative (Block B1). Laboratory Developed Test (LDT) Disclaimer: Positive and negative controls stain appropriately. Performance characteristics of immunohistochemical, immunofluorescent and chromogenic in-situ hybridization tests have been determined by [facility]'s [facility] Pathology and Laboratory Medicine [place] [facility] in a manner consistent with CLIA requirements. One or more of these tests have not been cleared or approved by the FDA. [facility] is regulated under CLIA as qualified to perform high-complexity testing. These tests are used for clinical purposes. They should not be regarded as investigational or for research. [facility] CONVERTED CLINICAL HISTORY DIARRHEA, UNSPECIFIED TYPE [R19.7 (ICD-10-CM)]; EPIGASTRIC PAIN [R10.13 (ICD-10-CM)], LMP: NA A: R/O CELIAC B: R/O H PYLORI C-F: R/O MICROSCOPIC COLITIS, R/O UC [facility] CONVERTED COMPLETE REPORT ADDENDUM PRESENT Specimen originated from [facility] Specimen #: [id number] Submitting Physician: DIONE FRANCES MD, MPH FINAL DIAGNOSIS 1. Duodenum, biopsy (A) - [...] in-situ hybridization tests have been determined by [facility]'s [facility] Pathology and Laboratory Medicine [place] ([facility] in a manner consistent with CLIA requirements. One or more of these tests have not been cleared or approved by the FDA. [facility] is regulated under CLIA as qualified to [...] in one cassette. Gross examination performed at [facility], [address] [place] [address] TTN 09/12/2021 9:01:08 PM Date of Report: 09/13/2021 Date of Procedure: 09/12/2021 Date of Receipt: 09/12/2021 Submitted by: DIONE FRANCES MD, MPH Location: LN10 Diagnostic interpretation performed at [facility], [address] [place] [address]. CLIA Number: [id number] [facility] CONVERTED FINAL DIAGNOSIS 1. Duodenum, biopsy (A) - Duodenal mucosa with no significant diagnostic alteration. 2. Stomach, biopsy (B) - Chronic antral and fundic gastritis. - Immunohistochemistry for Helicobacter pylori will be reported in an addendum. 3. Colon, right, transverse, left, and rectum, biopsy (C-F) - Colonic mucosa with no significant diagnostic alteration. [facility] CONVERTED GROSS DESCRIPTION A. Received in formalin [...] in one cassette. Gross examination performed at [facility], [address] [place] [address] TTN 09/12/2021 9:01:08 PM [facility] CONVERTED ORDERING PROVIDER Ordering Provider: DIONE FRANCES [facility] CONVERTED SPECIMENS DUODENUM, BIOPSY GASTRIC, BIOPSY RIGHT COLON, BIOPSY TRANSVERSE COLON, BIOPSY LEFT COLON, BIOPSY RECTAL, BIOPSY [facility] SURGICAL PATHOLOGYon 022 [employer] ADDENDUM PRESENT Specimen originated from [facility] Specimen #: [id number] Submitting Physician: DIONE FRANCES MD, [facility] FINAL DIAGNOSIS 1. Duodenum, biopsy (A) - [...] in-situ hybridization tests have been determined by [facility]'s [facility] Pathology and Laboratory Medicine [place] ([facility]) in a manner consistent with CLIA requirements. One or more of these tests have not been cleared or approved by the FDA. [facility] is regulated under CLIA as qualified to [...] in one cassette. Gross examination performed at [facility], [address] [place] [address] TTN 09/12/2021 9:01:08 PM Date of Report: 09/13/2021 Date of Procedure: 09/12/2021 Date of Receipt: 09/12/2021 Submitted by: DIONE FRANCES MD, MPH Location: LN10 Diagnostic interpretation performed at [facility], [address] [place] [address]. CLIA Number: [id number] [facility] COLONOSCOPY DIAGNOSTICon [facility] EGD DIAGNOSTICon 09-12-2021 [facility] CBC (INCLUDES DIFF/PLT)on Basophils (Bld) [#/Vol] 0.042 10*3/uL Normal 0-200 [facility] Comment on above: Performed By: #### 6 399, 7600, 65224, 60623 #### [facility] [address], [address] [place] [address] Accounts Clerk: Jose John MD Basophils/100 WBC (Bld) 0.7 % Normal [facility] Comment on above: Performed By: #### 6 399, 7600, 23613, 65839 #### [facility] [place] [address] Accounts Clerk: Jose John MD Eosinophils (Bld) [#/Vol] 0.222 10*3/uL Normal 15-500 [facility] Comment on above: Performed By: #### 6 399, 7600, 83514, 95017 #### [facility] [place] [address] Accounts Clerk: Jose John MD Eosinophils/100 WBC (Bld) 3.7 % Normal [facility] Comment on above: Performed By: #### 6 399, 7600, 86410, 68971 #### [facility] [address], [address] [place] [address] Accounts Clerk: Jose John MD Erythrocyte distribution width (RBC) [Ratio] 12.4 % Normal 11.0-15.0 [facility] Comment on above: Performed By: #### 6 399, 7600, 47209, 03990 #### [facility] of [address], [address] [place] [address] Accounts Clerk: Jose John MD Hematocrit (Bld) [Volume fraction] 46.1 % High 35.0-45.0 [facility] Comment on above: Performed By: #### 6 399, 7600, 45968, 81107 #### [facility] of [place] [address] Accounts Clerk: Jose John MD Hemoglobin (Bld) [Mass/Vol] 16.0 g/dL High 11.7-15.5 [facility] Comment on above: Performed By: #### 6 399, 7600, 46300, 83659 #### [facility] of [address], [address] [place] [address] Accounts Clerk: Jose John MD Lymphocytes (Bld) [#/Vol] 1.638 10*3/uL Normal 850-3900 [facility] Comment on above: Performed By: #### 6 399, 7600, 65538, 28678 #### [facility] of [place] [address] Accounts Clerk: Jose John MD Lymphocytes/100 WBC (Bld) 27.3 % Normal [facility] Comment on above: Performed By: #### 6 399, 7600, 91953, 50298 #### [facility] of [place] [address] Accounts Clerk: Jose John MD MCH (RBC) [Entitic mass] 31.6 pg Normal 27.0-33.0 [facility] Comment on above: Performed By: #### 6 399, 7600, 87206, 77709 #### [facility] of [place] [address] Accounts Clerk: Jose John MD MCHC (RBC) [Mass/Vol] 34.7 g/dL Normal 32.0-36.[address] [facility] Comment on above: Performed By: #### 6 399, 7600, 09371, 90432 #### [facility] of [address], [address] [place] [address] Accounts Clerk: Jose John MD MCV (RBC) [Entitic vol] 91.1 fL Normal 80.0-100.0 [facility] Comment on above: Performed By: #### 6 399, 7600, 38577, 08147 #### [facility] of [place] [address] Accounts Clerk: Jose John MD Monocytes (Bld) [#/Vol] 0.714 10*3/uL Normal 200-950 [facility] Comment on above: Performed By: #### 6 399, 7600, 39437, 31286 #### [facility] of [address], [address] [place] [address] Accounts Clerk: Jose John MD Monocytes/100 WBC (Bld) 11.9 % Normal [facility] Comment on above: Performed By: #### 6 399, 7600, 21521, 45752 #### [facility] of [place] [address] Accounts Clerk: Jose John MD Neutrophils (Bld) [#/Vol] 3.384 10*3/uL Normal 1972-1878 [facility] Comment on above: Performed By: #### 6 399, 7600, 90915, 04845 #### [facility] of [address], [address] [place] [address] Accounts Clerk: Jose John MD Neutrophils/100 WBC (Bld) 56.4 % Normal [facility] Comment on above: Performed By: #### 6 399, 7600, 00200, 79300 #### [facility] of [address], [address] [place] [address] Accounts Clerk: Jose John MD Platelet mean volume (Bld) [Entitic vol] 10.9 fL Normal 7.5-12.5 [facility] Comment on above: Performed By: #### 6 399, 7600, 29067, 26896 #### [facility] of [address], [address] [place] [address] Accounts Clerk: Jose John MD Platelets (Bld) [#/Vol] 265 10*3/uL Normal 140-400 [facility] Comment on above: Performed By: #### 6 399, 7600, 52868, 78099 #### [facility] of [place] [address] Accounts Clerk: Jose John MD RBC (Bld) [#/Vol] 5.06 10*6/uL Normal 3.80-5.10 [facility] Comment on above: Performed By: #### 6 399, 7600, 63330, 61885 #### [facility] of [address], [address] [place] [address] Accounts Clerk: Jose John MD WBC (Bld) [#/Vol] 6.0 10*3/uL Normal 3.8-10.8 [facility] Comment on above: Performed By: #### 6 399, 7600, 02247, 86366 #### [facility] [place] [address] Accounts Clerk: Jose John MD COMPREHENSIVE METABOLIC PANE [facility] 09-10-2021 Albumin [Mass/Vol] 4.5 g/dL Normal 3.6-5.1 [facility] Comment on above: Performed By: #### 6 399, 7600, 71849, 48327 #### [facility] of [place] [address] Accounts Clerk: Jose John MD Albumin/Globulin [Mass ratio] 2.5 {ratio} Normal 1.0-2.5 [facility] Comment on above: Performed By: #### 6 399, 7600, 16880, 00158 #### [facility] of [address], [address] [place] [address] Accounts Clerk: Jose John MD ALP [Catalytic activity/Vol] 121 U/L Normal 37-153 [facility] Comment on above: Performed By: #### 6 399, 7600, 64168, 70290 #### [facility] of [address], [address] [place] [address] Accounts Clerk: Jose John MD ALT [Catalytic activity/Vol] 23 U/L Normal 6-29 [facility] Comment on above: Performed By: #### 6 399, 7600, 80381, 17374 #### [facility] of [address], [address] [place] [address] Accounts Clerk: Jose John MD AST [Catalytic activity/Vol] 21 U/L Normal 10-35 [facility] Comment on above: Performed By: #### 6 399, 7600, 50685, 21703 #### [facility] of [address], [address] [place] [address] Accounts Clerk: Jose John MD Bilirubin [Mass/Vol] 0.7 mg/dL Normal 0.2-1.2 [facility] Comment on above: Performed By: #### 6 399, 7600, 68109, 67899 #### [facility] of [address], [address] [place] [address] Accounts Clerk: Jose John MD BUN/CREATININE RATIO NOT APPLICABLE Normal 6-22 [facility] Comment on above: Performed By: #### 6 399, 7600, 69012, 96041 #### [facility] of [address], [address] [place] [address] Accounts Clerk: Jose John MD Calcium [Mass/Vol] 10.9 mg/dL High 8.6-10.4 [facility] Comment on above: Performed By: #### 6 399, 7600, 65452, 07675 #### [facility] of [address], [address] [place] [address] Accounts Clerk: Jose John MD Chloride [Moles/Vol] 106 mmol/L Normal 98-110 [facility] Comment on above: Performed By: #### 6 399, 7600, 94122, 05366 #### [facility] [place] [address] Accounts Clerk: Jose John MD CO2 [Moles/Vol] 28 mmol/L Normal 20-32 [facility] Comment on above: Performed By: #### 6 399, 7600, 22066, 64189 #### [facility] [place] [address] Accounts Clerk: Jose John MD Creatinine [Mass/Vol] 0.99 mg/dL Normal 0.50-0.[address] [facility] Comment on above: Result Comment: For patients >49 years of age, the reference limit for Creatinine is approximately 13% higher for people identified as -[place] Zealander. Performed By: #### 6 399, 7600, 07984, 18377 #### [facility] [place] [address] Accounts Clerk: Jose John MD eGFR NON-AFR. SUDANESE 60 mL/min/1.73m2 Normal > OR = 60 [facility] Comment on above: Performed By: #### 6 399, 7600, 80244, 11747 #### [facility] [place] [address] Accounts Clerk: Jose John MD GFR/1.73 sq M.predicted among blacks MDRD (S/P/Bld) [Vol rate/Area] 69 mL/min/{1.73_m2} Normal > OR = 60 [facility] Comment on above: Performed By: #### 6 399, 7600, 25376, 79043 #### [facility] [place] [address] Accounts Clerk: Jose John MD Globulin (S) [Mass/Vol] 1.8 g/dL Low 1.9-3.7 [facility] Comment on above: Performed By: #### 6 399, 7600, 49393, 83601 #### [facility] [place] [address] Accounts Clerk: Jose John MD Glucose [Mass/Vol] 77 mg/dL Normal 65-99 [facility] Comment on above: Result Comment: Fasting reference interval Performed By: #### 6 399, 7600, 34249, 46150 #### [facility] [place] [address] Accounts Clerk: Jose John MD Potassium [Moles/Vol] 5.0 mmol/L Normal 3.5-5.[address] [facility] [address] [facility] Comment on above: Performed By: #### 6 399, 7600, 27310, 04111 #### [facility] [place] [address] Accounts Clerk: Jose John MD Protein [Mass/Vol] 6.3 g/dL Normal 6.1-8.1 [facility] Comment on above: Performed By: #### 6 399, 7600, 02473, 73265 #### [facility] [place] [address] Accounts Clerk: Jose John MD Sodium [Moles/Vol] 139 mmol/L Normal 135-146 [facility] Comment on above: Performed By: #### 6 399, 7600, 32075, 74155 #### [facility] [place] [address] Accounts Clerk: Jose John MD Urea nitrogen [Mass/Vol] 25 mg/dL Normal 7-25 [facility] Comment on above: Performed By: #### 6 399, 7600, 88574, 60355 #### [facility] of [place] [address] Accounts Clerk: Jose John MD LIPID PANEL, [facility] 08-18 Cholesterol [Mass/Vol] 129 mg/dL Normal <200 [facility] Comment on above: Order Comment: FASTI NG:YES FASTING: YES Performed By: #### 6 399, 7600, 02917, 75758 #### [facility] [address], [address] [place] [address] Accounts Clerk: Jose John MD Cholesterol in HDL [Mass/Vol] 49 mg/dL Low > OR = 50 [facility] Comment on above: Order Comment: FASTI NG:YES FASTING: YES Performed By: #### 6 399, 7600, 78496, 87246 #### [facility] [address], [address] [place] [address] Accounts Clerk: Jose John MD Cholesterol in LDL [Mass/Vol] [...] equation in the estimation of LDL-C. Patrick SS et al. TORIN. 2013;310(19): 8868-6493 (http://education.ChangeYourFlight.[employer]/faq/HGU949) Performed By: #### 6 399, 7600, 54229, 19516 #### [facility] [address], [address] [place] [address] Accounts Clerk: Jose John MD Cholesterol.total/Marni sterol in HDL [Mass ratio] 2.6 {ratio} Normal <5.0 [facility] Comment on above: Order Comment: FASTI NG:YES FASTING: YES Performed By: #### 6 399, 7600, 10488, 13785 #### [facility] [place] [address] Accounts Clerk: Jose John MD NON HDL CHOLESTEROL 80 mg/dL (calc) Normal <130 [facility] Comment on above: Order Comment: FASTI NG:YES FASTING: YES Result Comment: For patients with diabetes plus 1 major ASCVD risk factor, treating to a non-HDL-C goal of <100 mg/dL (LDL-C of <70 mg/dL) is considered a therapeutic option. Performed By: #### 6 399, 7600, 51904, 32817 #### [facility] [address], [address] [place] [address] Accounts Clerk: Jose John MD Triglyceride [Mass/Vol] 155 mg/dL High <150 [facility] Comment on above: Order Comment: FASTI NG:YES FASTING: YES Performed By: #### 6 399, 7600, 12859, 13133 #### [facility] [place] [address] Accounts Clerk: Jose John MD TSH+FREE T4on 09-10-2021 Free T4 [Mass/Vol] 1.2 ng/dL Normal 0.8-1.8 [facility] Comment on above: Performed By: #### 6 399, 7600, 16294, 98638 #### [facility] [address], [address] [place] [address] Accounts Clerk: Jose John MD TSH Qn 4.41 m[IU]/L Normal 0.40-4.50 [facility] Comment on above: Performed By: #### 6 399, 7600, 67586, 95743 #### [facility] [place] [address] Accounts Clerk: Jose John MD Patient Letter FTon 2020 Patient Letter [facility] April 29, 2021 JESUS WOLF [address] [place] [address] JESUS WOLF 1955 Dear Jesus, This is a SECOND ATTEMPT to remind you that you are due for an appointment with [facility] [employer] [facility]. Please contact our office at [phone] to schedule an appointment at your earliest convenience. Thank you, [facility] Normal [facility] Reminderson 04-29-2021 Reminders - From: Apryl Cobb To: [facility] - Reminders/Recalls; Sent: 11/14/2020 13:49:43 EDT Show up: 03/17/2021 13:49:00 EDT Subject: Ambulatory Reminder Due Date/Time: 04/28/2021 13:48:00 EDT Reminder/Recall haydee 5 year recall 04/28/2021 first recall letter second recall letter Normal [facility] Patient Letter FTon 2020 Patient Letter [facility] March 27, 2021 JESUS WOLF [address] [place] [address] JESUS WOLF 1955 Dear Jesus, This is a reminder that you are due for an appointment with [facility]. Please contact our office at [phone] to schedule an appointment at your earliest convenience. Thank you, [facility] IMAGE-GUIDED PAP W/AGE BASED SCR PROTOCOLSon 03-08-2021 COMMENT Normal [facility] Comment on above: Result Comment: This order for age-based cervical cancer and STI screening follows ACOG guidelines(PB 168, 140, PRE110). See individual assays for performing site location. Performed By: #### 9 7083, 06569 #### [facility] [address] Accounts Clerk: Jose John MD Result Comment: EXPL ANATORY [...] REFLEX HPV 16,18/45on 03-08-2021 CLINICAL INFORMATION: Normal [facility] Comment on above: Result Comment: None given Performed By: #### 1 8441, 54859 #### [facility] [address] [place] [address] Accounts Clerk: Jose John MD COMMENT: Normal [facility] Comment on above: Result Comment: This Pap test has been evaluated with computer assisted technology. Parabasal cells in smears that lack maturation due to atrophy or other hormonal reasons cannot be differentiated from transformation zone cells. Accordingly, presence or absence of endocervical or transformation zone components cannot be reported in this patient. Performed By: #### 9 8589, 04571 #### [facility] [address] Accounts Clerk: Jose John MD LEAD QUALITY CONTROL TECHNICIAN: Normal [facility] Comment on above: Result Comment: [facility], CT(ASCP) CT screening location: [place] [address]. Performed By: #### 9 4387, 51894 #### [facility] [address] Accounts Clerk: Jose John MD HPV mRNA E6/E7 Not detected Normal Not Detected [facility] Comment on above: Result Comment: Meth odology: Recreation Instructor-Mediated Amplification This assay detects E6/E7 viral messenger RNA (mRNA) from 14 high-risk HPV types (16,18,31,33,35,39,45,51,52,56,58,59,66,68). The analytical performance characteristics of this assay have been determined by [facility]. The modifications have not been cleared or approved by the FDA. This assay has been validated pursuant to the CLIA regulations and is used for clinical purposes. For additional information, please refer to http://education.Happify.[employer] Software/faq/UAS023k0 (This link if provided for information/ educational purposes only.) NO COLLECTION DATE RECEIVED. WE HAVE USED THE DATE THE SPECIMEN WAS RECEIVED BY THIS LABORATORY THE COLLECTION DATE. IF THIS IS INCORRECT, PLEASE CONTACT CLIENT SERVICES. PHONE NUMBER: [phone] Performed By: #### 9 6293, 09202 #### [facility], [address] [place] [address] Accounts Clerk: Jose John MD INTERPRETATION/RESULT: Normal [facility] Comment on above: Result Comment: Nega tive for intraepithelial lesion or malignancy. Atrophic pattern; predominantly parabasal cells Performed By: #### 9 1414, 76448 #### [facility], [address] [place] [address] Accounts Clerk: Jose John MD LMP: Normal [facility] Comment on above: Result Comment: None given Performed By: #### 9 1414, 16204 #### [facility], [address] [place] [phone] Accounts Clerk: Jose John MD PREV. BX: Normal [facility] Comment on above: Result Comment: None given Performed By: #### 9 1414, 18140 #### [facility], [address] [place] [phone] Accounts Clerk: Jose John MD PREV. PAP: Normal [facility] Comment on above: Result Comment: None given Performed By: #### 9 1414, 49202 #### [facility], [address] [place] [phone] Accounts Clerk: Jose John MD SOURCE: Normal [facility] Comment on above: Result Comment: None given Performed By: #### 9 1414, 50313 #### [facility], [address] [place] [phone] Accounts Clerk: Jose John MD STATEMENT OF ADEQUACY: Normal [facility] Comment on above: Result Comment: SATI SFACTORY FOR EVALUATION Performed By: #### 9 1414, 50001 #### [facility], [address] [place] [phone] Accounts Clerk: Jose John MD XR Pelvis and Hip - right AP and Lateral frogon 01-04-2021 IMPRESSION: EXPECTED POSTOPERATIVE APPEARANCE Trans Router: MILLER Transcribe Date/Time: Jan 04 2021 1:47P Dictated by : CARLOS LÓPEZ MD This examination was interpreted and the report reviewed and electronically signed by: CARLOS LÓPEZ MD on Jan 04 2021 1:47PM [facility] DIVISION OF RADIOLOGY * * *Final Report* * * DATE OF EXAM: Jan 04 2021 12:10PM LZX 5352 - XR HIP 3V PELV+ AP/LAT RT / PROCEDURE REASON: Post-op pain * * * * Physician Interpretation * * * * HISTORY: Post-op pain . Follow up right hip TECHNIQUE: XR HIP 3V PELV+ AP/LAT RT Laterality: RIGHT Views: 3 COMPARISON: 11/29/2020 RESULT: Status post right total hip arthroplasty. No evidence of implant failure. Left hip joint space is preserved. Tiny subchondral cyst in the lateral margin of the left acetabulum. Incidental note of severe degenerative disc disease in the lumbar spine. No other significant abnormality. - DIVISION OF RADIOLOGY Provider, Bharati Parth [place] - 01/04/2021 * * *Final Report* * * DATE OF EXAM: Jan 04 2021 12:10PM LZX 5352 - XR HIP 3V PELV+ AP/LAT RT / PROCEDURE REASON: Post-op pain * * * * Physician Interpretation * * * * HISTORY: Post-op pain . Follow up right hip TECHNIQUE: XR HIP 3V PELV+ AP/LAT RT Laterality: RIGHT Views: 3 COMPARISON: 11/29/2020 RESULT: Status post right total hip arthroplasty. No evidence of implant failure. Left hip joint space is preserved. Tiny subchondral cyst in the lateral margin of the left acetabulum. Incidental note of severe degenerative disc disease in the lumbar spine. No other significant abnormality. - IMPRESSION IMPRESSION: EXPECTED POSTOPERATIVE APPEARANCE Trans Router: MILLER Transcribe Date/Time: Jan 04 2021 1:47P Dictated by : CARLOS LÓPEZ MD This examination was interpreted and the report reviewed and electronically signed by: CARLOS LÓPEZ MD on Jan 04 2021 1:47PM EST [facility] Radiology Study observation (narrative) [facility] XR Pelvis and Hip - right AP and Lateral frogOrdered By: [facility] Provider on 01-04-2021 [facility] XR Pelvis and Hip - right AP and Lateral frogon 11-29-2020 IMPRESSION: SEVERE RIGHT HIP DEGENERATIVE CHANGE Trans Router: MILLER Transcribe Date/Time: Nov 29 2020 11:50A Dictated by : MADISON SMITH MD This examination was interpreted and the report reviewed and electronically signed by: MADISON SMITH MD on Nov 29 2020 11:51AM [facility] DIVISION OF RADIOLOGY * * *Final Report* * * DATE OF EXAM: Nov 29 2020 11:48AM LZX 5352 - XR HIP 3V PELV+ AP/LAT RT / PROCEDURE REASON: Pain in right hip * * * * Physician Interpretation * * * * HISTORY: Pain in right hip TECHNIQUE: Frontal radiograph the pelvis and 2 views right hip COMPARISON: None. RESULT: There is severe axial right hip joint space narrowing with subchondral sclerosis, subchondral cyst formation and small osteophyte formation at the femoral head neck junction. Findings indicate advanced degenerative change of the right hip. There is mild left hip degenerative change. Normal-appearing sacroiliac joints. Severe degenerative change lower lumbar spine. DIVISION OF RADIOLOGY Provider, Yvette Alba [facility] - 11/29/2020 * * *Final Report* * * DATE OF EXAM: Nov 29 2020 11:48AM LZX 5352 - XR HIP 3V PELV+ AP/LAT RT / PROCEDURE REASON: Pain in right hip * * * * Physician Interpretation * * * * HISTORY: Pain in right hip TECHNIQUE: Frontal radiograph the pelvis and 2 views right hip COMPARISON: None. RESULT: There is severe axial right hip joint space narrowing with subchondral sclerosis, subchondral cyst formation and small osteophyte formation at the femoral head neck junction. Findings indicate advanced degenerative change of the right hip. There is mild left hip degenerative change. Normal-appearing sacroiliac joints. Severe degenerative change lower lumbar spine. IMPRESSION IMPRESSION: SEVERE RIGHT HIP DEGENERATIVE CHANGE Trans Router: MILLER Transcribe Date/Time: Nov 29 2020 11:50A Dictated by : MAIDSON SMITH MD This examination was interpreted and the report reviewed and electronically signed by: MADISON SMITH MD on Nov 29 2020 11:51AM EST [facility] Radiology Study observation (narrative) Jay lozada [facility] XR Pelvis and Hip - right AP and Lateral frogOrdered By: [facility] Provider on 11-29-2020 [facility] US ABD RT UPPER QUADRANTon 0 09-03-2020 [facility] XR Shoulder - left 3 Viewson 04-26-2020 IMPRESSION: Mild degenerative change left shoulder Trans Router: [facility] Transcribe Date/Time: Apr 26 2020 9:31A Dictated by : CHIKIS GARCIA MD This examination was interpreted and the report reviewed and electronically signed by: CHIKIS GARCIA MD on Apr 26 2020 9:32AM EST DIVISION OF RADIOLOGY * * *Final Report* * * DATE OF EXAM: Apr 26 2020 9:23AM LZX 5252 - XR SHLDR >/=3V AP/MAURICE AP/OTHR LT / PROCEDURE REASON: Pain * * * * Physician Interpretation * * * * X-RAYS LEFT SHOULDER HISTORY: acute left shoulder pain from fall 1 month ago.. Pain TECHNIQUE: 3 views of the left shoulder. COMPARISON: None RESULT: Mild degenerative change at the glenohumeral and acromioclavicular joints. No acute fracture or dislocation. Acromiohumeral interval is maintained. DIVISION OF RADIOLOGY Provider, [facility] - 04/26/2020 * * *Final Report* * * DATE OF EXAM: Apr 26 2020 9:23AM LZX 5252 - XR SHLDR >/=3V AP/MAURICE AP/OTHR LT / PROCEDURE REASON: Pain * * * * Physician Interpretation * * * * X-RAYS LEFT SHOULDER HISTORY: acute left shoulder pain from fall 1 month ago.. Pain TECHNIQUE: 3 views of the left shoulder. COMPARISON: None RESULT: Mild degenerative change at the glenohumeral and acromioclavicular joints. No acute fracture or dislocation. Acromiohumeral interval is maintained. IMPRESSION IMPRESSION: Mild degenerative change left shoulder Trans Router: [facility] Transcribe Date/Time: Apr 26 2020 9:31A Dictated by : CHIKIS GARCIA MD This examination was interpreted and the report reviewed and electronically signed by: CHIKIS GARCIA MD on Apr 26 2020 9:32AM EST [facility] Radiology Study observation (narrative) Jay lozada [facility] XR Shoulder - left 3 ViewsOr dered By: [facility] Provider on 04-26-2020 [facility] Prothrombin Timeon 9 INR Coag RelTime (PPP) 1.47 {INR} High 0.90-1.10 [facility] Comment on above: Performed By: #### 3 [id number] #### [facility] [address] [place] [address] Prothrombin time (PT) Coag time (PPP) 16.8 s High 9.7-12.7 [facility] Comment on above: Result Comment: REENA GARRETT NOTE NEW REFERENCE RANGE EFFECTIVE 2018 Performed By: #### 3 [id number] #### [facility] [address] [place] [address] Prothrombin Timeon 9 INR Coag RelTime (PPP) 2.23 {INR} High 0.90-1.10 [facility] Comment on above: Performed By: #### 3 [id number] #### [facility] [address] [place] [address] Prothrombin time (PT) Coag time (PPP) 25.6 s High 9.7-12.7 [facility] Comment on above: Result Comment: REENA GARRETT NOTE NEW REFERENCE RANGE EFFECTIVE 2018 Performed By: #### 3 [id number] #### [facility] [address] [place] [address] Vital Signs Date Time Vital Sign Value Performing Clinician Facility 03-20-2025 08:44-0400 Body height 170.2 cm Pacc 2 Work Phone: [facility] 03-20-2025 08:44-0400 Body mass index (BMI) [Ratio] 41.43 kg/m2 Pacc 2 Work Phone: [facility] 03-20-2025 08:44-0400 Body temperature 98.2 [degF] Pacc 2 Work Phone: [facility] 03-20-2025 08:44-0400 Body weight 120 kg Pacc 2 Work Phone: [facility] Comment on above: with boot 03-20-2025 08:44-0400 Diastolic blood pressure 73 mm[Hg] Pacc 2 Work Phone: [facility] 03-20-2025 08:44-0400 Heart rate 75 /min Pacc 2 Work Phone: [facility] 03-20-2025 08:44-0400 Respiratory rate 18 /min Pacc 2 Work Phone: [facility] 03-20-2025 08:44-0400 SaO2% (BldA) [Mass fraction] 97 % Pacc 2 Work Phone: [facility] Comment on above: RA 03-20-2025 08:44-0400 Systolic blood pressure 108 mm[Hg] Pacc 2 Work Phone: [facility] 01-27-2025 08:39-0400 Body height 170.2 cm Abisai Barraza AFRICAN HISTORY PROFESSOR-RESPIRATORY CLINICIAN Work Phone: [facility] 01-27-2025 08:39-0400 Diastolic blood pressure 70 mm[Hg] Abisai Barraza AFRICAN HISTORY PROFESSOR-RESPIRATORY CLINICIAN Work Phone: [facility] 01-27-2025 08:39-0400 Systolic blood pressure 128 mm[Hg] Abisai Barraza AFRICAN HISTORY PROFESSOR-RESPIRATORY CLINICIAN Work Phone: [facility] 01-26-2025 09:08-0400 Body mass index (BMI) [Ratio] 41.79 kg/m2 Rheu Digna Work Phone: [facility] 01-26-2025 09:08-0400 Body temperature 97 [degF] Rheu Digna Work Phone: [facility] 01-26-2025 09:08-0400 Body weight 115.67 kg Rheu Digna Work Phone: [facility] 01-26-2025 09:08-0400 Diastolic blood pressure 69 mm[Hg] Rheu Digna Work Phone: [facility] 01-26-2025 09:08-0400 Heart rate 77 /min Rheyunier Moorea Work Phone: [facility] 01-26-2025 09:08-0400 Systolic blood pressure 103 mm[Hg] Rheu Digna Work Phone: [facility] 01-25-2025 09:03-0400 Heart rate 77 /min Curtis Ogden AFRICAN HISTORY PROFESSOR.RESPIRATORY CLINICIAN Work Phone: [facility] 01-25-2025 09:03-0400 Respiratory rate 17 /min Curtis Ogden AFRICAN HISTORY PROFESSOR.RESPIRATORY CLINICIAN Work Phone: [facility] 01-25-2025 09:03-0400 SaO2% (BldA) [Mass fraction] 97 % Curtis Ogden AFRICAN HISTORY PROFESSOR.RESPIRATORY CLINICIAN Work Phone: [facility] 01-18-2025 09:12-0400 Heart rate 97 /min Curtis Ogden AFRICAN HISTORY PROFESSOR.RESPIRATORY CLINICIAN Work Phone: [facility] 01-18-2025 09:12-0400 Respiratory rate 18 /min Curtis Ogden AFRICAN HISTORY PROFESSOR.RESPIRATORY CLINICIAN Work Phone: [facility] 01-18-2025 09:12-0400 SaO2% (BldA) [Mass fraction] 97 % Curtis Ogden APRN.RESPIRATORY CLINICIAN Work Phone: [facility] 12-29-2024 09:37-0400 Body height 170.2 cm Wojciech [employer] Work Phone: [facility] [employer] 12-29-2024 09:37-0400 Body mass index (BMI) [Ratio] 41.34 kg/m2 WojciechTherasisng DO Work Phone: [facility] [employer] 12-29-2024 09:37-0400 Body temperature 98.49 [degF] Wojciech Semantrang DO Work Phone: [facility] 12-29-2024 09:37-0400 Body weight 119.75 kg WojciechTherasisng DO Work Phone: [facility] 12-29-2024 09:37-0400 Diastolic blood pressure 80 mm[Hg] Wojciech Furlong DO Work Phone: [facility] 12-29-2024 09:37-0400 Heart rate 75 /min Wojciech Furlong DO Work Phone: [facility] 12-29-2024 09:37-0400 Respiratory rate 18 /min Wojciech Furlong DO Work Phone: [facility] 12-29-2024 09:37-0400 SaO2% (BldA) [Mass fraction] 98 % Wojciech Furlong DO Work Phone: [facility] 12-29-2024 09:37-0400 Systolic blood pressure 124 mm[Hg] Wojciech Furlong DO Work Phone: [facility] 12-22-2024 08:14-0400 Body temperature 97.3 [degF] Will Greer MD Work Phone: [facility] 12-22-2024 08:14-0400 Diastolic blood pressure 70 mm[Hg] Will Greer MD Work Phone: [facility] 12-22-2024 08:14-0400 Heart rate 78 /min Will Greer MD Work Phone: [facility] 12-22-2024 08:14-0400 Respiratory rate 20 /min Will Greer MD Work Phone: [facility] 12-22-2024 08:14-0400 SaO2% (BldA) [Mass fraction] 96 % Will Greer MD Work Phone: [facility] Comment on above: 12-22-2024 08:14-0400 Systolic blood pressure 118 mm[Hg] Will Greer MD Work Phone: [facility] 12-19-2024 13:40-0400 Body height 170.2 cm Wojciech Furlong DO Work Phone: [facility] 12-19-2024 13:40-0400 Body mass index (BMI) [Ratio] 40.77 kg/m2 Wojciech Furlong DO Work Phone: [facility] 12-19-2024 13:40-0400 Body temperature 98.4 [degF] Wojciech Maxlong DO Work Phone: [facility] 12-19-2024 13:40-0400 Body weight 118.12 kg Wojciech Furlong DO Work Phone: [facility] 12-19-2024 13:40-0400 Diastolic blood pressure 80 mm[Hg] Wojciech Furlong DO Work Phone: [facility] 12-19-2024 13:40-0400 Heart rate 77 /min Wojciech Maxlong DO Work Phone: [facility] 12-19-2024 13:40-0400 Respiratory rate 18 /min Wojciech Maxlong DO Work Phone: [facility] 12-19-2024 13:40-0400 SaO2% (BldA) [Mass fraction] 92 % Wjociech Maxlong DO Work Phone: [facility] 12-19-2024 13:40-0400 Systolic blood pressure 110 mm[Hg] Wojciech Maxlong DO Work Phone: [facility] 12-07-2024 10:56-0400 Body height 170.2 cm Yuriy Conway MD Work Phone: [facility] 12-07-2024 10:56-0400 Body mass index (BMI) [Ratio] 40.19 kg/m2 Yuriy Conway MD Work Phone: [facility] 12-07-2024 10:56-0400 Body weight 116.39 kg Yuriy Conway MD Work Phone: [facility] 12-07-2024 10:56-0400 Diastolic blood pressure 80 mm[Hg] Yuriy Conway MD Work Phone: [facility] 12-07-2024 10:56-0400 Heart rate 76 /min Yuriy Conway MD Work Phone: [facility] 12-07-2024 10:56-0400 Systolic blood pressure 124 mm[Hg] Yuriy Conway MD Work Phone: [facility] 12-01-2024 11:35-0400 Diastolic blood pressure 78 mm[Hg] Rheu Digna Work Phone: [facility] 12-01-2024 11:35-0400 Heart rate 74 /min Rheu Digna Work Phone: [facility] 12-01-2024 11:35-0400 SaO2% (BldA) [Mass fraction] 97 % Rheu Digna Work Phone: [facility] 12-01-2024 11:35-0400 Systolic blood pressure 141 mm[Hg] Rheu Digna Work Phone: [facility] 12-01-2024 09:04-0400 Body mass index (BMI) [Ratio] 42.05 kg/m2 Rheu Digna Work Phone: [facility] 12-01-2024 09:04-0400 Body temperature 97 [degF] Rheu Digna Work Phone: [facility] 12-01-2024 09:04-0400 Body weight 116.4 kg Rheu Digna Work Phone: [facility] 11-28-2024 13:52-0400 Body height 170.2 cm Wojciech Furlong DO Work Phone: [employer] 11-28-2024 13:52-0400 Body mass index (BMI) [Ratio] 40.27 kg/m2 Wojciech Furlong DO Work Phone: [employer] 11-28-2024 13:52-0400 Body temperature 97.7 [degF] Wojciech Furlong DO Work Phone: [facility] 11-28-2024 13:52-0400 Body weight 116.67 kg Wojciech Furlong DO Work Phone: [facility] 11-28-2024 13:52-0400 Diastolic blood pressure 72 mm[Hg] Wojciech Furlong DO Work Phone: [facility] 11-28-2024 13:52-0400 Heart rate 77 /min Wojciech Furlong DO Work Phone: [facility] 11-28-2024 13:52-0400 Respiratory rate 20 /min Wojciech Maxlong DO Work Phone: [facility] 11-28-2024 13:52-0400 SaO2% (BldA) [Mass fraction] 96 % Wojciech Furlong DO Work Phone: [facility] 11-28-2024 13:52-0400 Systolic blood pressure 120 mm[Hg] Wojciech Furlong DO Work Phone: [facility] 11-16-2024 08:48-0400 Body height 166.4 cm Nadege Murphy DO Work Phone: [facility] 11-16-2024 08:48-0400 Body mass index (BMI) [Ratio] 42.78 kg/m2 Nadege Murphy DO Work Phone: [facility] 11-16-2024 08:48-0400 Body temperature 97.39 [degF] Nadege Murphy DO Work Phone: [facility] 11-16-2024 08:48-0400 Body weight 118.4 kg Nadege Murphy DO Work Phone: [facility] 11-16-2024 08:48-0400 Diastolic blood pressure 64 mm[Hg] Nadege Murphy DO Work Phone: [facility] 11-16-2024 08:48-0400 Heart rate 80 /min Nadege Murphy DO Work Phone: [facility] 11-16-2024 08:48-0400 Systolic blood pressure 136 mm[Hg] Nadege Murphy DO Work Phone: [facility] 11-15-2024 09:14-0400 Body mass index (BMI) [Ratio] 42.49 kg/m2 Radu Salazar MD Work Phone: [facility] 11-15-2024 09:14-0400 Body weight 117.6 kg Radu Salazar MD Work Phone: [facility] 11-15-2024 09:14-0400 Diastolic blood pressure 81 mm[Hg] Radu Salazar MD Work Phone: [facility] 11-15-2024 09:14-0400 Heart rate 81 /min Radu Salazar MD Work Phone: [facility] 11-15-2024 09:14-0400 Systolic blood pressure 138 mm[Hg] Radu Salazar MD Work Phone: [facility] 10-11-2024 16:10-0500 Body height 170.2 cm Wojciech Furlong DO Work Phone: [employer] 10-11-2024 16:10-0500 Body mass index (BMI) [Ratio] 41.1 kg/m2 Wojciech Furlong DO Work Phone: [employer] 10-11-2024 16:10-0500 Body temperature 97.81 [degF] Wojciech Furlong DO Work Phone: [employer] 10-11-2024 16:10-0500 Body weight 119.02 kg Wojciech Furlong DO Work Phone: [employer] 10-11-2024 16:10-0500 Diastolic blood pressure 60 mm[Hg] Wojciech Furlong DO Work Phone: [employer] 10-11-2024 16:10-0500 Heart rate 79 /min Wojciech Furlong DO Work Phone: [employer] 10-11-2024 16:10-0500 Respiratory rate 20 /min Wojciech Furlong DO Work Phone: [facility] 10-11-2024 16:10-0500 SaO2% (BldA) [Mass fraction] 98 % Wojciech Furlong DO Work Phone: [facility] 10-11-2024 16:10-0500 Systolic blood pressure 100 mm[Hg] Wojciech Furlong DO Work Phone: [facility] 10-06-2024 09:00-0500 Body mass index (BMI) [Ratio] 42.27 kg/m2 Rheu Digna Work Phone: [facility] 10-06-2024 09:00-0500 Body temperature 96.69 [degF] Rheu Digna Work Phone: [facility] 10-06-2024 09:00-0500 Body weight 117 kg Rheu Digna Work Phone: [facility] 10-06-2024 09:00-0500 Diastolic blood pressure 78 mm[Hg] Rheu Digna Work Phone: [facility] 10-06-2024 09:00-0500 Heart rate 79 /min Rheu Digna Work Phone: [facility] 10-06-2024 09:00-0500 Systolic blood pressure 120 mm[Hg] Rheu Digna Work Phone: [facility] 09-19-2024 10:29-0500 Diastolic blood pressure 80 mm[Hg] Wojciech Furlong DO Work Phone: [facility] 09-19-2024 10:29-0500 Heart rate 76 /min Wojciech Furlong DO Work Phone: [facility] 09-19-2024 10:29-0500 Respiratory rate 16 /min Wojciech Furlong DO Work Phone: [facility] 09-19-2024 10:29-0500 SaO2% (BldA) [Mass fraction] 96 % Wojciech Furlong DO Work Phone: [facility] 09-19-2024 10:29-0500 Systolic blood pressure 130 mm[Hg] Wojciech Furlong DO Work Phone: [facility] 09-19-2024 09:55-0500 Inhaled oxygen flow rate 5 L/min Wojciech Furlong DO Work Phone: [facility] 09-19-2024 08:23-0500 Body height 170.18 cm Wojciech Furlong DO Work Phone: [facility] 09-19-2024 08:23-0500 Body temperature 98.5 [degF] Wojciech Furlong DO Work Phone: [facility] 09-19-2024 08:23-0500 Body weight 114.3 kg Wojciech Maxlong DO Work Phone: [facility] 08-11-2024 12:49-0500 Diastolic blood pressure 90 mm[Hg] Rheu Digna Work Phone: [facility] 08-11-2024 12:49-0500 Heart rate 80 /min Rheu Digna Work Phone: [facility] 08-11-2024 12:49-0500 Respiratory rate 16 /min Rheu Digna Work Phone: [facility] 08-11-2024 12:49-0500 SaO2% (BldA) [Mass fraction] 98 % Rheu Dgina Work Phone: [facility] 08-11-2024 12:49-0500 Systolic blood pressure 138 mm[Hg] Rheu Digna Work Phone: [facility] 08-11-2024 09:44-0500 Body mass index (BMI) [Ratio] 42.23 kg/m2 Rheu Digna Work Phone: [facility] 08-11-2024 09:44-0500 Body weight 116.9 kg Rheu Digna Work Phone: [facility] 08-05-2024 15:01-0500 Body height 170.2 cm Yuriy Conway MD Work Phone: [facility] 08-05-2024 15:01-0500 Body mass index (BMI) [Ratio] 39.97 kg/m2 Yuriy Conway MD Work Phone: [facility] 08-05-2024 15:01-0500 Body weight 115.76 kg Yuriy Conway MD Work Phone: [facility] 08-05-2024 15:01-0500 Diastolic blood pressure 72 mm[Hg] Yuriy Conway MD Work Phone: [facility] 08-05-2024 15:01-0500 Heart rate 81 /min Yuriy Conway MD Work Phone: [facility] 08-05-2024 15:01-0500 Systolic blood pressure 110 mm[Hg] Yuriy Conway MD Work Phone: [facility] 07-11-2024 13:27-0500 Body height 170.2 cm [facility] 07-11-2024 13:27-0500 Body mass index (BMI) [Ratio] 40.91 kg/m2 [facility]ojciech Furlong DO [email or web address] 07-11-2024 13:27-0500 Body temperature 97.59 [degF] Wojciech Furlong DO Work Phone: [employer] [facility] 07-11-2024 13:27-0500 Body weight 118.48 kg Wojciech Furlong DO [facility] 07-11-2024 13:27-0500 Diastolic blood pressure 68 mm[Hg] Wojciech Furlong DO Work [email or web address] 07-11-2024 13:27-0500 Heart rate 89 /min Wojciech Furlong DO Work Phone: [facility] [employer] [facility] 07-11-2024 13:27-0500 Respiratory rate 24 /min Wojciech Furlong DO Work Phone: [facility] [employer] [facility] 07-11-2024 13:27-0500 SaO2% (BldA) [Mass fraction] 97 % Wojciech Furlong DO Work Phone: [facility] 07-11-2024 13:27-0500 Systolic blood pressure 134 mm[Hg] Wojciech Furlong DO Work Phone: [facility] [employer] [facility] 06-30-2024 08:59-0500 Body height 170.2 cm Wojciech Furlong DO Work Phone: [facility] 06-30-2024 08:59-0500 Body mass index (BMI) [Ratio] 41.44 kg/m2 Wojciech Furlong DO Work Phone: [facility] 06-30-2024 08:59-0500 Body temperature 98.01 [degF] Wojciech Furlong DO Work Phone: [facility] [employer] [facility] 06-30-2024 08:59-0500 Body weight 120.02 kg Wojciech Furlong DO Work Phone: [facility] [employer] [facility] 06-30-2024 08:59-0500 Diastolic blood pressure 68 mm[Hg] Wojciech Furlong DO Work Phone: [facility] [employer] [facility] 06-30-2024 08:59-0500 Heart rate 87 /min Wojciech Furlong DO Work Phone: [facility] [facility] 06-30-2024 08:59-0500 Respiratory rate 20 /min Wojciech Furlong DO Work Phone: [facility] 06-30-2024 08:59-0500 SaO2% (BldA) [Mass fraction] 100 % Wojciech Furlong DO Work Phone: [facility] 06-30-2024 08:59-0500 Systolic blood pressure 110 mm[Hg] Wojciech Furlong DO Work Phone: [facility] 06-14-2024 09:28-0400 Body mass index (BMI) [Ratio] 43.57 kg/m2 Rheu Digna Work Phone: [facility] 06-14-2024 09:28-0400 Body temperature 97.11 [degF] Rheu Digna Work Phone: [facility] 06-14-2024 09:28-0400 Body weight 120.6 kg Rheu Digna Work Phone: [facility] 06-14-2024 09:28-0400 Diastolic blood pressure 72 mm[Hg] Rheu Digna Work Phone: [facility] 06-14-2024 09:28-0400 Heart rate 93 /min Rheu Digna Work Phone: [facility] 06-14-2024 09:28-0400 Systolic blood pressure 119 mm[Hg] Rheu Digna Work Phone: [facility] 05-19-2024 15:52-0400 Body height 170.2 cm Wojciech Furlong DO Work Phone: [facility] 05-19-2024 15:52-0400 Body mass index (BMI) [Ratio] 41.13 kg/m2 Wojciech Furlong DO Work Phone: [facility] 05-19-2024 15:52-0400 Body temperature 98.01 [degF] Wojciech Furlong DO Work Phone: [facility] 05-19-2024 15:52-0400 Body weight 119.11 kg Wojciech Furlong DO Work Phone: [facility] 05-19-2024 15:52-0400 Diastolic blood pressure 70 mm[Hg] Wojciech Furlong DO Work Phone: [facility] 05-19-2024 15:52-0400 Heart rate 72 /min Wojciech Treviño DO Work Phone: [facility] 05-19-2024 15:52-0400 Respiratory rate 18 /min Wojciech Treviño DO Work Phone: [facility] 05-19-2024 15:52-0400 SaO2% (BldA) [Mass fraction] 94 % Wojciech Sernang DO Work Phone: [facility] 05-19-2024 15:52-0400 Systolic blood pressure 110 mm[Hg] Wojciech Treviño DO Work Phone: [facility] 05-18-2024 14:47-0400 Body mass index (BMI) [Ratio] 43.46 kg/m2 Nadege Murphy DO Work Phone: [facility] 05-18-2024 14:47-0400 Body temperature 97 [degF] Nadege Murphy DO Work Phone: [facility] 05-18-2024 14:47-0400 Body weight 120.3 kg Nadege Murphy DO Work Phone: [facility] 05-18-2024 14:47-0400 Diastolic blood pressure 63 mm[Hg] Nadege Murphy DO Work Phone: [facility] 05-18-2024 14:47-0400 Heart rate 70 /min Nadege Murphy DO Work Phone: [facility] 05-18-2024 14:47-0400 Systolic blood pressure 131 mm[Hg] Nadege Murphy DO Work Phone: [facility] 05-16-2024 11:03-0400 Body height 170.2 cm Christian Kaur APRN-RESPIRATORY CLINICIAN Work Phone: [facility] 05-16-2024 11:03-0400 Body mass index (BMI) [Ratio] 41.43 kg/m2 Christian Kaur APRN-RESPIRATORY CLINICIAN Work Phone: [facility] 05-16-2024 11:03-0400 Body weight 119.98 kg Christian Kaur AFR[employer] HISTORY PROFESSOR-RESPIRATORY CLINICIAN Work Phone: [facility] 05-16-2024 11:03-0400 Diastolic blood pressure 71 mm[Hg] Christian Kaur AFR[employer] HISTORY PROFESSOR-RESPIRATORY CLINICIAN Work Phone: [facility] 05-16-2024 11:03-0400 Heart rate 67 /min Christian Kaur AFR[employer] HISTORY PROFESSOR-RESPIRATORY CLINICIAN Work Phone: [facility] 05-16-2024 11:03-0400 SaO2% (BldA) [Mass fraction] 91 % Christian Kaur AFRICAN HISTORY PROFESSOR-RESPIRATORY CLINICIAN Work Phone: [facility] 05-16-2024 11:03-0400 Systolic blood pressure 119 mm[Hg] Christian Kaur AFR[employer] HISTORY PROFESSOR-RESPIRATORY CLINICIAN Work Phone: [facility] 04-19-2024 10:10-0400 Body mass index (BMI) [Ratio] 43.25 kg/m2 Rheu Digna Work Phone: [facility] 04-19-2024 10:10-0400 Body temperature 97.11 [degF] Rheu Digna Work Phone: [facility] 04-19-2024 10:10-0400 Body weight 119.7 kg Rheu Digna Work Phone: [facility] 04-19-2024 10:10-0400 Diastolic blood pressure 63 mm[Hg] Rheu Digna Work Phone: [facility] 04-19-2024 10:10-0400 Heart rate 70 /min Rheu Digna Work Phone: [facility] 04-19-2024 10:10-0400 Systolic blood pressure 146 mm[Hg] Rheu Digna Work Phone: [facility] 04-07-2024 13:46-0400 SaO2% (BldA) [Mass fraction] 97 % Juan Chino MD Work Phone: [facility] 03-30-2024 10:05-0400 Body height 170.2 cm Wojciech Furlong DO Work Phone: [employer] 03-30-2024 10:05-0400 Body mass index (BMI) [Ratio] 41.66 kg/m2 Wojciech Furlong DO [facility] 03-30-2024 10:05-0400 Body temperature 97.81 [degF] Wojciech Furlong DO [facility] 03-30-2024 10:05-0400 Body weight 120.66 kg Wojciech Furlong DO [facility] 03-30-2024 10:05-0400 Diastolic blood pressure 78 mm[Hg] Wojciech Furlong DO [facility] 03-30-2024 10:05-0400 Heart rate 90 /min Wojciech Furlong DO [facility] 03-30-2024 10:05-0400 Respiratory rate 18 /min Wojciech Furlong DO [facility] 03-30-2024 10:05-0400 SaO2% (BldA) [Mass fraction] 95 % Wojciech Furlong DO [facility] 03-30-2024 10:05-0400 Systolic blood pressure 130 mm[Hg] Wojciech Furlong DO [facility] 03-15-2024 14:25-0400 Body height 166.4 cm Julia Ann PA-C Work Phone: [facility] 03-15-2024 14:25-0400 Body mass index (BMI) [Ratio] 43.75 kg/m2 Julia Ann PA-C Work Phone: [facility] 03-15-2024 14:25-0400 Body temperature 97.9 [degF] Juliacathy Dennisanda PA-C Work Phone: [facility] 03-15-2024 14:25-0400 Body weight 121.1 kg Juliacathy Dennisanda PA-C Work Phone: [facility] 03-15-2024 14:25-0400 Diastolic blood pressure 56 mm[Hg] Julia Marissa PA-C Work Phone: [facility] 03-15-2024 14:25-0400 Heart rate 77 /min Juliacathy Dennisanda PA-C Work Phone: [facility] 03-15-2024 14:25-0400 Systolic blood pressure 129 mm[Hg] Julia Dennisanda PA-C Work Phone: [facility] 02-23-2024 12:00-0400 Diastolic blood pressure 73 mm[Hg] Rheu Digna Work Phone: [facility] 02-23-2024 12:00-0400 Heart rate 70 /min Rheu Digna Work Phone: [facility] 02-23-2024 12:00-0400 Systolic blood pressure 142 mm[Hg] Rheu Digna Work Phone: [facility] 02-23-2024 09:34-0400 Body mass index (BMI) [Ratio] 41.37 kg/m2 Rheu Digna Work Phone: [facility] 02-23-2024 09:34-0400 Body temperature 97.39 [degF] Rheu Digna Work Phone: [facility] 02-23-2024 09:34-0400 Body weight 119.8 kg Rheu Digna Work Phone: [facility] 02-16-2024 09:04-0400 Body height 170.2 cm Wojciech Furlong DO Work Phone: [employer] 02-16-2024 09:04-0400 Body mass index (BMI) [Ratio] 41.4 kg/m2 Wojciech Furlong DO Work Phone: [employer] 02-16-2024 09:04-0400 Body weight 119.89 kg Wojciech Treviño DO Work Phone: [employer] 02-16-2024 09:04-0400 Diastolic blood pressure 84 mm[Hg] Wojciech Treviño DO Work Phone: [employer] 02-16-2024 09:04-0400 Systolic blood pressure 130 mm[Hg] Wojciech Treviño DO Work Phone: [employer] 02-15-2024 16:56-0400 Body height 170.2 cm Christian Kaur AFR[employer] HISTORY PROFESSOR-RESPIRATORY CLINICIAN Work Phone: [facility] 02-15-2024 16:56-0400 Body mass index (BMI) [Ratio] 41.57 kg/m2 Christian Kaur AFR[employer] HISTORY PROFESSOR-RESPIRATORY CLINICIAN Work Phone: [facility] 02-15-2024 16:56-0400 Body weight 120.4 kg Christian Kaur AFR[employer] HISTORY PROFESSOR-RESPIRATORY CLINICIAN Work Phone: [facility] 02-15-2024 16:56-0400 Diastolic blood pressure 80 mm[Hg] Christian Kaur AFR[employer] HISTORY PROFESSOR-RESPIRATORY CLINICIAN Work Phone: [facility] 02-15-2024 16:56-0400 Heart rate 68 /min Christian Kaur AFR[employer] HISTORY PROFESSOR-RESPIRATORY CLINICIAN Work Phone: [facility] 02-15-2024 16:56-0400 SaO2% (BldA) [Mass fraction] 96 % Christian Kaur AFR[employer] HISTORY PROFESSOR-RESPIRATORY CLINICIAN Work Phone: [facility] 02-15-2024 16:56-0400 Systolic blood pressure 128 mm[Hg] Christian Kaur AFRICAN HISTORY PROFESSOR-RESPIRATORY CLINICIAN Work Phone: [facility] 01-05-2024 07:22-0400 Body height 170.2 cm Juan Chino MD Work Phone: [facility] 01-05-2024 07:22-0400 Body mass index (BMI) [Ratio] 41.19 kg/m2 Juan Chino MD Work Phone: [facility] 01-05-2024 07:22-0400 Body weight 119.3 kg Juan Chino MD Work Phone: [facility] 12-29-2023 09:44-0400 Body height 170.2 cm Radu Salazar MD Work Phone: [facility] 12-29-2023 09:44-0400 Body mass index (BMI) [Ratio] 41.09 kg/m2 Radu Salazar MD Work Phone: [facility] 12-29-2023 09:44-0400 Body weight 119 kg Radu Salazar MD Work Phone: [facility] 12-29-2023 09:44-0400 Diastolic blood pressure 78 mm[Hg] Radu Salazar MD Work Phone: [facility] 12-29-2023 09:44-0400 Heart rate 67 /min Radu Salazar MD Work Phone: [facility] 12-29-2023 09:44-0400 Systolic blood pressure 134 mm[Hg] Radu Salazar MD Work Phone: [facility] 12-24-2023 09:22-0400 Body mass index (BMI) [Ratio] 41.71 kg/m2 Rheu Digna Work Phone: [facility] 12-24-2023 09:22-0400 Body temperature 96.49 [degF] Rheu Digna Work Phone: [facility] 12-24-2023 09:22-0400 Body weight 119 kg Rheu Digna Work Phone: [facility] 12-24-2023 09:22-0400 Diastolic blood pressure 68 mm[Hg] Rheu Digna Work Phone: [facility] 12-24-2023 09:22-0400 Heart rate 76 /min Rheu Digna Work Phone: [facility] 12-24-2023 09:22-0400 Systolic blood pressure 150 mm[Hg] Rena Sawyer Work Phone: [facility] 12-22-2023 11:16-0400 Body mass index (BMI) [Ratio] 41.34 kg/m2 Dione Frances MD Work Phone: [facility] 12-22-2023 11:16-0400 Body weight 117.94 kg Dione Frances MD Work Phone: [facility] 12-22-2023 11:16-0400 Diastolic blood pressure 92 mm[Hg] Dione Frances MD Work Phone: [facility] 12-22-2023 11:16-0400 Heart rate 76 /min Dione Frances MD Work Phone: [facility] 12-22-2023 11:16-0400 Systolic blood pressure 157 mm[Hg] Dione Frances MD Work Phone: [facility] 11-26-2023 13:14-0400 Inhaled oxygen flow rate 3 L/min DO Wojciech Furlong Work Phone: [facility] 11-26-2023 13:14-0400 SaO2% (BldA) [Mass fraction] 99 % DO Wojciech Furlong Work Phone: [facility] 11-26-2023 13:09-0400 Body height 170.18 cm DO Wojciech Furlong Work Phone: [facility] 11-26-2023 13:09-0400 Body weight 119 kg DO Wojciech Furlong Work Phone: [facility] 11-26-2023 13:07-0400 Body height 170.18 cm DO Wojciech Furlong Work Phone: [facility] 11-26-2023 13:07-0400 Body weight 119 kg DO Wojciech Furlong Work Phone: [facility] 11-16-2023 15:59-0400 Diastolic blood pressure 81 mm[Hg] Juan Chino MD Work Phone: [facility] 11-16-2023 15:59-0400 Heart rate 150 /min Juan Chino MD Work Phone: [facility] 11-16-2023 15:59-0400 Systolic blood pressure 119 mm[Hg] Juan Chino MD Work Phone: [facility] 11-16-2023 15:57-0400 Body mass index (BMI) [Ratio] 41.24 kg/m2 Juan Chino MD Work Phone: [facility] 11-16-2023 15:57-0400 Body weight 119.44 kg Juan Chino MD Work Phone: [facility] 11-16-2023 15:57-0400 SaO2% (BldA) [Mass fraction] 95 % Juan Chino MD Work Phone: [facility] 11-09-2023 09:34-0400 Body height 170.2 cm [facility] 11-09-2023 09:34-0400 Body mass index (BMI) [Ratio] 41.35 kg/m2 [facility] 11-09-2023 09:34-0400 Body weight 119.75 kg [facility] 11-09-2023 09:34-0400 Diastolic blood pressure 78 mm[Hg] [facility] 11-09-2023 09:34-0400 Heart rate 90 /min [facility] 11-09-2023 09:34-0400 SaO2% (BldA) [Mass fraction] 94 % [facility] 11-09-2023 09:34-0400 Systolic blood pressure 124 mm[Hg] [facility] 10-29-2023 08:49-0400 Body height 170.2 cm Yuriy Conway MD Work Phone: [facility] 10-29-2023 08:49-0400 Body mass index (BMI) [Ratio] 40.72 kg/m2 Yuriy Conway MD Work Phone: [facility] 10-29-2023 08:49-0400 Body weight 117.94 kg Yuriy Conway MD Work Phone: [facility] 10-29-2023 08:49-0400 Diastolic blood pressure 58 mm[Hg] Yuriy oCnway MD Work Phone: [facility] 10-29-2023 08:49-0400 Heart rate 96 /min Yuriy Conway MD Work Phone: [facility] 10-29-2023 08:49-0400 Systolic blood pressure 110 mm[Hg] Yuriy Conway MD Work Phone: [facility] 10-13-2023 10:41-0500 Body height 168.9 cm Julia Marissa PA-C Work Phone: [facility] 10-13-2023 10:41-0500 Body temperature 98.2 [degF] Julia Marissa PA-C Work Phone: [facility] 10-13-2023 10:41-0500 Body weight 120.7 kg Julia Marissa PA-C Work Phone: [facility] 10-13-2023 10:41-0500 Diastolic blood pressure 74 mm[Hg] Julia Marissa PA-C Work Phone: [facility] 10-13-2023 10:41-0500 Heart rate 90 /min Julia Marissa PA-C Work Phone: [facility] 10-13-2023 10:41-0500 Systolic blood pressure 114 mm[Hg] Julia Marissa PA-C Work Phone: [facility] 10-01-2023 09:31-0500 Body temperature 98.1 [degF] Rheu Digna Work Phone: [facility] 10-01-2023 09:31-0500 Body weight 117.8 kg Rheu Digna Work Phone: [facility] 10-01-2023 09:31-0500 Diastolic blood pressure 79 mm[Hg] Rheu Digna Work Phone: [facility] 10-01-2023 09:31-0500 Heart rate 92 /min Rheu Digna Work Phone: [facility] 10-01-2023 09:31-0500 SaO2% (BldA) [Mass fraction] 98 % Rheu Digna Work Phone: [facility] 10-01-2023 09:31-0500 Systolic blood pressure 137 mm[Hg] Rheu Digna Work Phone: [facility] 09-17-2023 09:45-0500 Heart rate 119 /min Yuriy Conway MD Work Phone: [facility] 09-17-2023 09:11-0500 Body height 170.2 cm Yuriy Conway MD Work Phone: [facility] 09-17-2023 09:11-0500 Body mass index (BMI) [Ratio] 40.72 kg/m2 Yuriy Conway MD Work Phone: [facility] 09-17-2023 09:11-0500 Body weight 117.94 kg Yuriy Conway MD Work Phone: [facility] 09-17-2023 09:11-0500 Diastolic blood pressure 70 mm[Hg] Yuriy Conway MD Work Phone: [facility] 09-17-2023 09:11-0500 Systolic blood pressure 98 mm[Hg] Yuriy Conway MD Work Phone: [facility] 09-01-2023 13:15-0500 Body height 170.2 cm Cha HAN Work Phone: [facility] 09-01-2023 13:15-0500 Body mass index (BMI) [Ratio] 40.5 kg/m2 Cha Staley AFRICAN HISTORY PROFESSOR-PLATE EMBOSSER Work Phone: [facility] 09-01-2023 13:15-0500 Body temperature 97.39 [degF] Cha Staley AFRICAN HISTORY PROFESSOR-PLATE EMBOSSER Work Phone: [facility] 09-01-2023 13:15-0500 Body weight 117.3 kg Cha Staley AFRICAN HISTORY PROFESSOR-PLATE EMBOSSER Work Phone: [facility] 09-01-2023 13:15-0500 Diastolic blood pressure 70 mm[Hg] Cha Staley AFRICAN HISTORY PROFESSOR-PLATE EMBOSSER Work Phone: [facility] 09-01-2023 13:15-0500 Heart rate 64 /min Cha Staley APRN-PLATE EMBOSSER Work Phone: [facility] 09-01-2023 13:15-0500 SaO2% (BldA) [Mass fraction] 98 % Cha Staley AFRICAN HISTORY PROFESSOR-PLATE EMBOSSER Work Phone: [facility] 09-01-2023 13:15-0500 Systolic blood pressure 110 mm[Hg] Cha Staley AFRICAN HISTORY PROFESSOR-PLATE EMBOSSER Work Phone: [facility] 07-01-2023 09:00-0500 Body temperature 98.1 [degF] Rheu Digna Work Phone: [facility] 07-01-2023 09:00-0500 Body weight 117.48 kg Rheu Digna Work Phone: [facility] 07-01-2023 09:00-0500 Diastolic blood pressure 56 mm[Hg] Rheu Digna Work Phone: [facility] 07-01-2023 09:00-0500 Heart rate 69 /min Rheu Digna Work Phone: [facility] 07-01-2023 09:00-0500 Respiratory rate 18 /min Rheu Digna Work Phone: [facility] 07-01-2023 09:00-0500 Systolic blood pressure 137 mm[Hg] Rheu Digna Work Phone: [facility] 04-15-2023 08:59-0400 Body weight 115.21 kg Dione Frances MD Work Phone: [facility] 04-15-2023 08:59-0400 Diastolic blood pressure 85 mm[Hg] Dione Frances MD Work Phone: [facility] 04-15-2023 08:59-0400 Heart rate 70 /min Dione Frances MD Work Phone: [facility] 04-15-2023 08:59-0400 Systolic blood pressure 142 mm[Hg] Dione Frances MD Work Phone: [facility] 04-02-2023 08:40-0400 Diastolic blood pressure 74 mm[Hg] Dione Frances MD Work Phone: [facility] 04-02-2023 08:40-0400 Heart rate 75 /min Dione Frnaces MD Work Phone: [facility] 04-02-2023 08:40-0400 Respiratory rate 16 /min Dione Frances MD Work Phone: [facility] 04-02-2023 08:40-0400 SaO2% (BldA) [Mass fraction] 96 % Dione Frances MD Work Phone: [facility] 04-02-2023 08:40-0400 Systolic blood pressure 147 mm[Hg] Dione Frances MD Work Phone: [facility] 04-02-2023 08:10-0400 Body temperature 99.81 [degF] Dione Frances MD Work Phone: [facility] 03-19-2023 10:02-0400 Body temperature 97.2 [degF] Rheu Digna Work Phone: [facility] 03-19-2023 10:02-0400 Body weight 115.67 kg Rheu Digna Work Phone: [facility] 03-19-2023 10:02-0400 Diastolic blood pressure 63 mm[Hg] Rheu Digna Work Phone: [facility] 03-19-2023 10:02-0400 Heart rate 66 /min Rheu Digna Work Phone: [facility] 03-19-2023 10:02-0400 SaO2% (BldA) [Mass fraction] 97 % Rheu Digna Work Phone: [facility] 03-19-2023 10:02-0400 Systolic blood pressure 127 mm[Hg] Rheu Digna Work Phone: [facility] 02-04-2023 13:14-0400 Body temperature 97 [degF] Nadege Bianchijohn DO Work Phone: [facility] 02-04-2023 13:14-0400 Body weight 113.4 kg Nadege Bianchijohn DO Work Phone: [facility] 02-04-2023 13:14-0400 Diastolic blood pressure 54 mm[Hg] Nadege Radames DO Work Phone: [facility] 02-04-2023 13:14-0400 Heart rate 72 /min Nadegerashard Bianchijohn DO Work Phone: [facility] 02-04-2023 13:14-0400 Systolic blood pressure 116 mm[Hg] Nadege Radames DO Work Phone: [facility] 12-15-2022 13:00-0400 Diastolic blood pressure 73 mm[Hg] Rheu Digna Work Phone: [facility] 12-15-2022 13:00-0400 Heart rate 88 /min Rheu Digna Work Phone: [facility] 12-15-2022 13:00-0400 Systolic blood pressure 126 mm[Hg] Rheu Digna Work Phone: [facility] 12-15-2022 10:00-0400 Body temperature 97 [degF] Rheu Digna Work Phone: [facility] 12-15-2022 10:00-0400 Body weight 113.4 kg Rheu Digna Work Phone: [facility] 12-15-2022 10:00-0400 Respiratory rate 18 /min Rheu Digna Work Phone: [facility] 09-17-2022 08:45-0500 65 1 Wojciech G Furlong Work Phone: [facility] [address] [place] Work Phone: Comment on above: [place] [id number] 09-15-2022 13:15-0500 Diastolic blood pressure 63 mm[Hg] Rheu Digna Work Phone: [facility] 09-15-2022 13:15-0500 Heart rate 75 /min Rheu Digna Work Phone: [facility] 09-15-2022 13:15-0500 Respiratory rate 18 /min Rheu Digna Work Phone: [facility] 09-15-2022 13:15-0500 Systolic blood pressure 98 mm[Hg] Rheu Digna Work Phone: [facility] 09-15-2022 10:10-0500 Body temperature 97.39 [degF] Rheu Digna Work Phone: [facility] 09-15-2022 10:10-0500 Body weight 111.13 kg Rheu Digna Work Phone: [facility] 08-15-2022 10:00-0500 62 1 Wojciech G Furlong Work Phone: [facility] 600 DO Work Phone: Comment on above: [id number] 08-01-2022 10:00-0500 Body height 170.18 cm Wojciech G Furlong Work Phone: [facility] 250 DO Work Phone: 08-01-2022 10:00-0500 Body mass index (BMI) [Ratio] 38.69 kg/m2 Wojciech G Furlong Work Phone: [facility] 250 DO Work Phone: 08-01-2022 10:00-0500 Body surface area Derived from formula 2.21 m2 Wojciech G Furlong Work Phone: [facility] 250 DO Work Phone: 08-01-2022 10:00-0500 Body weight 112.04 kg Wojciech G Furlong Work Phone: [facility] 250 DO Work Phone: 08-01-2022 10:00-0500 Diastolic blood pressure 68 mm[Hg] Wojciech G Furlong Work Phone: [facility] [address] DO Work Phone: 08-01-2022 10:00-0500 Heart rate 72 /min Wojciech G Furlong Work Phone: [facility] 250 DO Work Phone: 08-01-2022 10:00-0500 Systolic blood pressure 108 mm[Hg] Wojciech G Furlong Work Phone: [facility] [address] DO Work Phone: 07-31-2022 08:49-0500 Body height 167.6 cm Pacc 2 Work Phone: [facility] 07-31-2022 08:49-0500 Body temperature 97 [degF] Pacc 2 Work Phone: [facility] 07-31-2022 08:49-0500 Body weight 111.58 kg Pacc 2 Work Phone: [facility] 07-31-2022 08:49-0500 Diastolic blood pressure 92 mm[Hg] Pacc 2 Work Phone: [facility] 07-31-2022 08:49-0500 Heart rate 79 /min Pacc 2 Work Phone: [facility] 07-31-2022 08:49-0500 Respiratory rate 16 /min Pacc 2 Work Phone: [facility] 07-31-2022 08:49-0500 SaO2% (BldA) [Mass fraction] 99 % Pacc 2 Work Phone: [facility] 07-31-2022 08:49-0500 Systolic blood pressure 136 mm[Hg] Pacc 2 Work Phone: [facility] 07-07-2022 11:56-0500 Body height 170.2 cm Monica Booker MD Work Phone: [facility] 07-07-2022 11:56-0500 Body weight 116.39 kg Monica Booker MD Work Phone: [facility] 07-07-2022 11:56-0500 Diastolic blood pressure 48 mm[Hg] Monica Booker MD Work Phone: [facility] 07-07-2022 11:56-0500 Heart rate 80 /min Monica Booker MD Work Phone: [facility] 07-07-2022 11:56-0500 Systolic blood pressure 124 mm[Hg] Monica Booker MD Work Phone: [facility] 06-12-2022 15:30-0400 Diastolic blood pressure 58 mm[Hg] Rheu Main Work Phone: [facility] 06-12-2022 15:30-0400 Heart rate 72 /min Rheu Main Work Phone: [facility] 06-12-2022 15:30-0400 Systolic blood pressure 114 mm[Hg] Rheu Main Work Phone: [facility] 06-12-2022 12:45-0400 Body temperature 97.39 [degF] Rheu Main Work Phone: [facility] 06-11-2022 14:38-0400 Body weight 114.72 kg Lemuel Davis MD Work Phone: [facility] 06-11-2022 14:38-0400 Diastolic blood pressure 64 mm[Hg] Lemuel Davis MD Work Phone: [facility] 06-11-2022 14:38-0400 Heart rate 75 /min Lemuel Davis MD Work Phone: [facility] 06-11-2022 14:38-0400 Systolic blood pressure 112 mm[Hg] Lemuel Davis MD Work Phone: [facility] 04-18-2022 15:53-0400 Body height 170.2 cm Julia Mariana PA-C Work Phone: [facility] 04-18-2022 15:53-0400 Body temperature 97.3 [degF] Julia Mariana PA-C Work Phone: [facility] 04-18-2022 15:53-0400 Body weight 114.72 kg Julia Mariana PA-C Work Phone: [facility] 04-18-2022 15:53-0400 Diastolic blood pressure 67 mm[Hg] Julia Mariana PA-C Work Phone: [facility] 04-18-2022 15:53-0400 Heart rate 73 /min Julia Mariana PA-C Work Phone: [facility] 04-18-2022 15:53-0400 Systolic blood pressure 122 mm[Hg] Julia Mariana PA-C Work Phone: [facility] 03-13-2022 14:30-0400 Diastolic blood pressure 50 mm[Hg] Rheu Main Work Phone: [facility] 03-13-2022 14:30-0400 Heart rate 68 /min Rheu Main Work Phone: [facility] 03-13-2022 14:30-0400 Systolic blood pressure 97 mm[Hg] Rheu Main Work Phone: [facility] 03-13-2022 11:43-0400 Body temperature 97.81 [degF] Dinau Main Work Phone: [facility] 03-13-2022 11:12-0400 Body temperature 96.91 [degF] Evelin Alicea MD Work Phone: [facility] 03-13-2022 11:12-0400 Body weight 115.39 kg Evelin Alicea MD Work Phone: [facility] 03-13-2022 11:12-0400 Diastolic blood pressure 50 mm[Hg] Evelin Alicea MD Work Phone: [facility] 03-13-2022 11:12-0400 Heart rate 67 /min Evelin Alicea MD Work Phone: [facility] 03-13-2022 11:12-0400 Systolic blood pressure 121 mm[Hg] Evelin Alicea MD Work Phone: [facility] 02-13-2022 16:10-0400 Body height 170.18 cm DO Wojciech Furlong Work Phone: [facility] 02-13-2022 16:10-0400 Body mass index (BMI) [Ratio] 39.4 kg/m2 DO Wojciech Furlong Work Phone: [facility] 02-13-2022 16:10-0400 Body temperature 97.7 [degF] DO Wojciech Furlong Work Phone: [facility] 02-13-2022 16:10-0400 Body weight 114.3 kg DO Wojciech Furlong Work Phone: [facility] 02-13-2022 16:10-0400 Diastolic blood pressure 103 mm[Hg] DO Wojciech Furlong Work Phone: [facility] 02-13-2022 16:10-0400 Heart rate 100 /min DO Wojciech Furlong Work Phone: [facility] 02-13-2022 16:10-0400 Respiratory rate 18 /min DO Wojciech Furlong Work Phone: [facility] 02-13-2022 16:10-0400 SaO2% (BldA) [Mass fraction] 98 % DO Wojciech Furlong Work Phone: [facility] 02-13-2022 16:10-0400 Systolic blood pressure 127 mm[Hg] DO Wojciech Furlong Work Phone: [facility] 02-09-2022 08:00-0400 Body temperature 97.9 [degF] DO Wojciech Furlong Work Phone: [facility] 02-09-2022 08:00-0400 Diastolic blood pressure 71 mm[Hg] DO Wojciech Furlong Work Phone: [facility] 02-09-2022 08:00-0400 Heart rate 71 /min DO Wojciech Furlong Work Phone: [facility] 02-09-2022 08:00-0400 Respiratory rate 18 /min DO Wojciech Furlong Work Phone: [facility] 02-09-2022 08:00-0400 SaO2% (BldA) [Mass fraction] 94 % DO Wojciech Furlong Work Phone: [facility] 02-09-2022 08:00-0400 Systolic blood pressure 123 mm[Hg] DO Wojciech Furlong Work Phone: [facility] 02-09-2022 05:37-0400 Body weight 115.1 kg DO Wojciech Furlong Work Phone: [facility] 02-07-2022 20:42-0400 Body height 167.64 cm DO Wojciech Furlong Work Phone: [facility] 02-07-2022 20:42-0400 Body mass index (BMI) [Ratio] 41.3 kg/m2 DO Wojciech Furlong Work Phone: [facility] 02-07-2022 19:13-0400 Diastolic blood pressure 53 mm[Hg] DO Wojciech Furlong Work Phone: [facility] 02-07-2022 19:13-0400 Heart rate 75 /min DO Wojciech Furlong Work Phone: [facility] 02-07-2022 19:13-0400 Respiratory rate 18 /min DO Wojciech Furlong Work Phone: [facility] 02-07-2022 19:13-0400 SaO2% (BldA) [Mass fraction] 98 % DO Wojciech Furlong Work Phone: [facility] 02-07-2022 19:13-0400 Systolic blood pressure 120 mm[Hg] DO Wojciech Furlong Work Phone: [facility] 02-07-2022 11:48-0400 Body temperature 98.1 [degF] DO Wojciech Furlong Work Phone: [facility] 02-07-2022 11:47-0400 Body height 167.64 cm DO Wojciech Furlong Work Phone: [facility] 02-07-2022 11:47-0400 Body mass index (BMI) [Ratio] 41.1 kg/m2 DO Wojciech Furlong Work Phone: [facility] 02-07-2022 11:47-0400 Body weight 115.66 kg DO Wojciech Furlong Work Phone: [facility] 12-09-2021 14:45-0400 Diastolic blood pressure 62 mm[Hg] Rheu Main Work Phone: [facility] 12-09-2021 14:45-0400 Heart rate 75 /min Rheu Main Work Phone: [facility] 12-09-2021 14:45-0400 Systolic blood pressure 103 mm[Hg] Rheu Main Work Phone: [facility] 12-09-2021 12:00-0400 Body temperature 97.3 [degF] Rena Main Work Phone: [facility] 09-12-2021 08:50-0500 Diastolic blood pressure 64 mm[Hg] Dione Frances MD Work Phone: [facility] 09-12-2021 08:50-0500 Heart rate 66 /min Dione Frances MD Work Phone: [facility] 09-12-2021 08:50-0500 Respiratory rate 16 /min Dione Frances MD Work Phone: [facility] 09-12-2021 08:50-0500 SaO2% (BldA) [Mass fraction] 97 % Dione Frances MD Work Phone: [facility] 09-12-2021 08:50-0500 Systolic blood pressure 144 mm[Hg] Dione Frances MD Work Phone: [facility] 09-12-2021 08:24-0500 Body temperature 97.39 [degF] Dione Frances MD Work Phone: [facility] Encounters Encounter Date Encounter Type Care Provider Facility Start: 04-24-2025 End: 04-24-2025 ambulatory Fercho Prather PA-C Work Phone: [facility] Comment on above: Therapy Start: 04-18-2025 End: 04-18-2025 Telephone encounter Aiden Hall MD Work Phone: Orthopaedics Start: 04-18-2025 End: 04-18-2025 Patient encounter procedure Fercho Prather PA-C Work Phone: [facility] Comment on above: Charcot arthropathy (Primary Dx) Office visit Start: 04-18-2025 End: 04-18-2025 ambulatory Aiden Hall MD Work Phone: Orthopaedics Start: 04-03-2025 End: 04-04-2025 ambulatory AIDEN HALL Facility[facility] Start: 03-23-2025 End: 03-23-2025 ambulatory WOJCIECH TREVIÑO Facility:[facility] Start: 03-22-2025 End: 03-22-2025 Refill Wojciech Treviño DO Work Phone: [facility] Start: 03-21-2025 End: 03-21-2025 E-mail encounter from caregiver Sai Plascencia RN Infusion Start: 03-21-2025 End: 03-21-2025 Patient encounter procedure Sai Plascencia RN Infusion Comment on above: Infusion Appointment Start: 03-20-2025 End: 03-20-2025 Telephone encounter Nadege Murphy DO Work Phone: Rheumatology Comment on above: Procedure; Infusion Start: 03-20-2025 End: 03-20-2025 Admission to establishment [facility] Work Phone: Pre Anesthesia Start: 03-20-2025 End: 03-20-2025 [facility] Comment on above: Pre-op examination ( Primary Dx); History of DVT (deep vein thrombosis); Essential hypertension; Mixed hyperlipidemia; Paroxysmal atrial fibrillation (HCC); Pulmonary hypertension (HCC); Ascending aortic aneurysm, unspecified whether ruptured; Chronic diastolic congestive heart failure (HCC); Obstructive sleep apnea syndrome; Stage 3 chronic kidney disease, unspecified whether stage 3a or 3b CKD (HCC); Acquired hypothyroidism; Hyperparathyroid (HCC); Anemia, unspecified type; Systemic lupus erythematosus, unspecified SLE type, unspecified organ involvement status (HCC); Obesity, Class III, BMI >= 40 Start: 03-20-2025 End: 03-20-2025 Preprocedural examination done [facility] 2 Work Phone: [facility] Work Phone: Start: 03-20-2025 End: 03-20-2025 ambulatory WOJCIECH TREVIÑO Facility:[facility] Start: 03-20-2025 Encounter for other preprocedural examination WOJCIECH TREVIÑO [facility] Start: 03-10-2025 End: 03-10-2025 Patient encounter procedure Mary Morales MD Work Phone: Orthopaedics Comment on above: Primary osteoarthrit is of left knee (Primary Dx) Start: 03-10-2025 End: 03-10-2025 ambulatory [facility] Facility:[facility] Start: 02-21-2025 End: 03-03-2025 Refill Julia Ann PA-C Work Phone: [facility] Comment on above: Refill Request Preparations For Maura melissa (Eliquis instructions) Start: 02-20-2025 End: 03-13-2025 Admission to same day surgery center Arnol Munson RN Pre Anesthesia Comment on above: Preparations For Maura melissa (PACC) Start: 02-20-2025 End: 03-13-2025 ambulatory Arnlo Munson RN Pre Anesthesia Start: 02-14-2025 End: 02-16-2025 ambulatory Aiden Hall MD Work Phone: Orthopaedics Start: 02-14-2025 End: 02-16-2025 Patient encounter procedure Aiden Hall MD Work Phone: Orthopaedics Comment on above: My chart question Start: 02-07-2025 End: 02-07-2025 Orders Only Aiden Hall MD Work Phone: Orthopaedics Comment on above: Arthritis, neuropath ic (Primary Dx); Bone disease Start: 02-03-2025 End: 02-03-2025 Telephone encounter Aiden Hall MD Work Phone: Orthopaedics Comment on above: Surgical Follow Up Start: 02-03-2025 End: 02-03-2025 ambulatory [facility] Facility:[facility] Start: 02-01-2025 End: 02-01-2025 Patient encounter procedure Alva Darnell PT Work Phone: [facility] Physical Therapy Comment on above: Pain in left foot (P rimary Dx); Closed fracture of left foot, initial encounter; Pain in right foot Start: 02-01-2025 End: 02-01-2025 Office outpatient visit 15 minutes Aiden Isabel MD Work Phone: Orthopaedics Comment on above: Charcot arthropathy (Primary Dx); Disorder of bone, unspecified Start: 02-01-2025 End: 02-01-2025 ambulatory Alva Darnell PT Work Phone: [facility] Physical Therapy Start: 02-01-2025 End: 02-01-2025 Subsequent hospital visit by physician [facility] ([facility]) Work Phone: 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; Deep vein thrombosis (DVT) of upper extremity, unspecified chronicity, unspecified laterality, unspecified vein; Presence of Watchman left atrial appendage closure device Start: 01-27-2025 End: 01-27-2025 Preoperative state Abisai Barraza AFR[employer] HISTORY PROFESSOR-RESPIRATORY CLINICIAN Work Phone: [facility] Work Phone: Start: 01-27-2025 End: 01-27-2025 ambulatory [facility] Ambulatory Start: 01-27-2025 End: 01-27-2025 Encounter for other preprocedural examination [facility] Ambulatory Start: 01-26-2025 End: 01-26-2025 Telephone encounter Aiden Hall MD Work Phone: Orthopaedics Comment on above: Patient Update Start: 01-26-2025 End: 01-26-2025 ambulatory Rheu Chair 5 Digna Work Phone: Infusion Comment on above: Systemic lupus eryth ematosus, unspecified SLE type, unspecified organ involvement status (HCC) (Primary Dx) Start: 01-25-2025 End: 01-25-2025 Patient encounter procedure Curtis Ogden APRN.RESPIRATORY CLINICIAN Work Phone: Otolaryngology Comment on above: Left-sided epistaxis (Primary Dx); Nasal vestibulitis; halfway (current) use of anticoagulants Start: 01-25-2025 End: 01-25-2025 ambulatory [facility] Facility:[facility] Start: 01-23-2025 End: 01-23-2025 Office outpatient visit 15 minutes Aiden Hall MD Work Phone: Orthopaedics Comment on above: Closed fracture of l eft foot, initial encounter (Primary Dx) Start: 01-23-2025 End: 01-24-2025 ambulatory Nadege Murphy DO Work Phone: Rheumatology Comment on above: Virgial appt Start: 01-19-2025 End: 01-19-2025 Refill Wojciech Treviño DO Work Phone: [facility] Comment on above: Closed displaced fra cture of navicular bone of right foot with delayed healing, subsequent encounter (Primary Dx) Sprain of right foot , initial encounter [S93.601A] Start: 01-18-2025 End: 01-18-2025 Patient encounter procedure Curtis Ogden APRN.RESPIRATORY CLINICIAN Work Phone: Otolaryngology Comment on above: Left-sided epistaxis (Primary Dx); halfway (current) use of anticoagulants Start: 01-18-2025 End: 01-18-2025 ambulatory [facility] Facility:[facility] Start: 01-17-2025 End: 01-17-2025 E-mail encounter from caregiver Beverly Franco DPM Work Phone: Podiatry Start: 01-17-2025 End: 01-17-2025 Patient encounter procedure Beverly Franco DPM Work Phone: Podiatry Comment on above: Xray Start: 12-29-2024 End: 12-29-2024 ambulatory WOJCIECH SANTANAMOLLY [facility] Start: 12-29-2024 End: 12-29-2024 Office outpatient visit 25 minutes Wojciech Treviño DO Work Phone: [facility] Comment on above: Intertrigo (Primary Dx); Essential hypertension; Closed nondisplaced fracture of navicular bone of right foot with routine healing, subsequent encounter; Paroxysmal atrial fibrillation (CMS-HCC); Obesity, morbid ([facility]-HCC); Chronic depression Start: 12-22-2024 End: 12-22-2024 Patient encounter procedure Will Greer MD Work Phone: Pulmonary Medicine Comment on above: Chronic diastolic co ngestive heart failure (HCC) (Primary Dx); Pulmonary hypertension (HCC); Obstructive sleep apnea syndrome; Obesity, Class III, BMI >= 40 Start: 12-22-2024 End: 12-22-2024 [facility] Start: 12-21-2024 End: 12-21-2024 Patient encounter procedure Beverly Franco DPM Work Phone: Podiatry Comment on above: Sprain of right foot , initial encounter (Primary Dx); Closed nondisplaced fracture of navicular bone of right foot, initial encounter; Osteoarthritis of midtarsal joint of right foot Start: 12-21-2024 End: 12-21-2024 ambulatory WOJCIECH SANTANAMOLLY Facility:[facility] Start: 12-21-2024 End: 12-21-2024 Subsequent hospital visit by physician Helen Love mayur Jasso Work Phone: Radiology Comment on above: Pain in right foot [ M79.671] Start: 12-20-2024 End: 12-20-2024 Telephone encounter Beverly Franco DPM Work Phone: Podiatry Comment on above: Appointment (Xray) Start: 12-19-2024 End: 12-19-2024 E-mail encounter from caregiver Beverly Franco DPM Work Phone: Podiatry Start: 12-19-2024 End: 12-19-2024 Patient encounter procedure Beverly Franco DPM Work Phone: Podiatry Comment on above: Xray Start: 12-19-2024 End: 12-19-2024 Telephone encounter Dalila Jones DPM Work Phone: Orthopaedics Comment on above: Foot Swelling Pain in right foot ( Primary Dx) Start: 12-19-2024 End: 12-19-2024 Office outpatient visit 15 minutes Wojciech Santanacynthiamolly DO Work Phone: [facility] Internal Medicine - Family Medicine Comment on above: Acute right ankle pa in (Primary Dx); Pedal edema Start: 12-19-2024 End: 12-19-2024 ambulatory [facility] Start: 12-09-2024 End: 12-09-2024 Refill Wojciech Taz Santanajason DO 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; Chronic diastolic heart failure; Aneurysm of ascending aorta without rupture; Essential hypertension; Mixed hyperlipidemia; Obstructive sleep apnea; Never smoked any substance; BMI 40.0-44.9, adult (Multi); High risk medication use; Hyperlipidemia, unspecified hyperlipidemia type; Atypical atrial flutter; Morbid obesity (Multi); Other forms of systemic lupus erythematosus, unspecified organ involvement status (Multi) Start: 12-07-2024 End: 12-07-2024 ambulatory YURIY LIPSCOMBAHIM [facility] Ambulatory Start: 12-01-2024 End: 12-01-2024 ambulatory Rheu Chair 6 [facility] Work Phone: Infusion Comment on above: Systemic lupus eryth ematosus, unspecified SLE type, unspecified organ involvement status (HCC) (Primary Dx) Start: 11-30-2024 End: 12-01-2024 Refill Dione Frances MD Work Phone: Gastroenterology Comment on above: Refill Request Start: 11-28-2024 End: 11-28-2024 Office outpatient visit 15 minutes Wojciech Treviño DO Work Phone: [facility] Physicians Internal Medicine - Family Medicine Comment on above: Localized osteoarthr itis of left knee (Primary Dx) Start: 11-28-2024 End: 11-28-2024 ambulatory [facility] Start: 11-23-2024 End: 04-07-2025 Telephone encounter Nadege Susan Murphy DO Work Phone: Rheumatology Comment on above: Received Outside Med ical Records Start: 11-23-2024 End: 11-23-2024 ambulatory [facility] Start: 11-17-2024 End: 01-17-2025 Follow-up encounter Radu Salazar MD Work Phone: [facility] [place] Start: 11-16-2024 End: 11-16-2024 ambulatory [facility] Facility:[facility] Start: 11-16-2024 End: 11-16-2024 Patient encounter procedure Nadege Murphy DO Work Phone: Rheumatology Comment on above: Systemic lupus eryth ematosus, unspecified SLE type, unspecified organ involvement status (HCC) (Primary Dx) Start: 11-15-2024 End: 11-15-2024 Refill Dione Frances MD Work Phone: Gastroenterology Comment on above: Refill Request Start: 11-15-2024 End: 11-15-2024 ambulatory [facility] Facility:[facility] Start: 11-15-2024 End: 11-15-2024 Patient encounter procedure Radu Salazar MD Work Phone: Kidney Medicine Comment on above: Lupus nephritis, ISN /RPS class V (HCC) (Primary Dx); Stage 3a chronic kidney disease (HCC); Membranous glomerulonephritis; Hypertension, unspecified type Start: 10-16-2024 End: 10-17-2024 Refill Dione Frances MD Work Phone: Gastroenterology Comment on above: Refill Request Start: 10-11-2024 End: 10-11-2024 Office outpatient visit 25 minutes Wojciech Treviño DO Work Phone: [facility] Internal Medicine - Family Medicine Comment on above: Obstructive sleep ap isidro (Primary Dx); Dyspnea on exertion; Systemic lupus erythematosus, unspecified SLE type, unspecified organ involvement status (CMS-HCC); Acute deep vein thrombosis (DVT) of brachial vein of left upper extremity ([facility]-HCC); Obesity, morbid ([facility]-HCC); Chronic diastolic heart failure ([facility]-HCC); Atypical atrial flutter ([facility]-HCC) Start: 10-11-2024 End: 10-11-2024 ambulatory [facility] Start: 10-06-2024 End: 10-06-2024 ambulatory Rheu Chair 4 [facility] Work Phone: Infusion Comment on above: Systemic lupus eryth ematosus, unspecified SLE type, unspecified organ involvement status (HCC) (Primary Dx) Start: 10-04-2024 End: 10-05-2024 ambulatory [facility] Comment on above: infusion 10/06/24 Start: 10-04-2024 End: 10-05-2024 E-mail encounter from caregiver [facility] In[facility] Start: 09-30-2024 End: 09-30-2024 ambulatory WOJCIECHREBECCA TREVIÑO Facility:[facility] Start: 09-30-2024 End: 09-30-2024 Office outpatient visit 25 minutes Dione Frances MD Work Phone: Gastroenterology Comment on above: Diarrhea, unspecifie d type (Primary Dx); Gastroesophageal reflux disease without esophagitis; Bile acid malabsorption syndrome; Other ulcerative colitis without complication (HCC) Start: 09-19-2024 End: 09-19-2024 Admission to same day surgery center [facility]ojciech [facility] [place] Start: 09-19-2024 End: 09-19-2024 ambulatory Wojciechrebecca Santanalong DO Work Phone: [facility] Work Phone: Start: 09-16-2024 End: 09-16-2024 Refill Wojciech Treviño DO Work Phone: [facility] Start: 09-15-2024 End: 09-15-2024 Patient encounter procedure Wojciech Santanalong DO Work Phone: [facility]-CT Scan [facility] [place] Work Phone: Start: 09-15-2024 End: 09-15-2024 ambulatory Wojciechrebecca Santanalong DO Work Phone: [facility] Work Phone: Start: 09-12-2024 End: 09-12-2024 ambulatory [facility] Start: 09-12-2024 End: 09-12-2024 Subsequent hospital visit by physician Franca Powell Echo/Vasc Room 2 [facility] Comment on above: Chronic diastolic he art failure; Shortness of breath Start: 09-08-2024 End: 09-08-2024 Refill Dione Frances MD Work Phone: Gastroenterology Comment on above: Refill Request Start: 08-29-2024 Non-patient / Non-visit Wojciech Santanalong DO Work Phone: [facility] Pulmonary Work Phone: Start: 08-29-2024 End: 08-29-2024 Patient encounter procedure Wojciech Santanalong DO Work Phone: [facility]-Respiratory Therapy Work Phone: Start: 08-29-2024 End: 08-29-2024 ambulatory Wojciech Maxlong DO Work Phone: [facility] Work Phone: Start: 08-15-2024 End: 08-15-2024 Patient encounter status Franca 1 [facility] Work Phone: Start: 08-15-2024 End: 08-15-2024 Subsequent hospital visit by physician Franca [id number] [facility] Comment on above: Paroxysmal atrial fi brillation (Multi); Epistaxis; Anemia, unspecified type; Preop testing Start: 08-15-2024 End: 08-15-2024 ambulatory [facility] Start: 08-15-2024 End: 08-15-2024 Encounter for other preprocedural examination [facility] Start: 08-11-2024 End: 08-11-2024 Telephone encounter Mary Morales MD Work Phone: Orthopaedics Comment on above: Appointment (Ortho a ppt cancel/reschedule) Start: 08-11-2024 End: 08-11-2024 ambulatory Rheu Chair 9 [facility] Work Phone: Infusion Comment on above: Paroxysmal atrial fi brillation (HCC) (Primary Dx); Epistaxis; Preoperative examination, unspecified; Systemic lupus erythematosus, unspecified SLE type, unspecified organ involvement status (HCC) Start: 08-11-2024 Encounter for other preprocedural examination WOJCIECH TREVIÑO [facility] Start: 08-11-2024 End: 08-11-2024 Preprocedural examination done Rheyunier Digna Work Phone: [facility] Start: 08-09-2024 End: 08-09-2024 ambulatory [facility] Start: 08-08-2024 End: 08-08-2024 Telephone encounter Adelaide Casillas RN Infusion Comment on above: Appointment Start: 08-05-2024 End: 08-05-2024 Office outpatient visit 40 minutes Yuriy Conway MD Work Phone: [facility] Comment on above: Paroxysmal atrial fi brillation (Multi) (Primary Dx); High risk medication use; Chronic diastolic heart failure; Shortness of breath; Essential hypertension; Aneurysm of ascending aorta without rupture (CMS-HCC); Obstructive sleep apnea; Never smoked any substance; BMI 39.0-39.9,adult; Deep vein thrombosis (DVT) of axillary vein of left upper extremity, unspecified chronicity (Multi); Other forms of systemic lupus erythematosus, unspecified organ involvement status (Multi) Start: 08-05-2024 End: 08-05-2024 ambulatory [facility] Start: 07-18-2024 End: 07-18-2024 Orders Only Wojciech Treviño DO Work Phone: [facility] Start: 07-18-2024 End: 07-18-2024 Refill Wojciech Santanamolly DO Work Phone: [facility] Start: 07-16-2024 End: 07-18-2024 Refill Dione Frances MD Work Phone: Gastroenterology Comment on above: Refill Request (Pant oprazole 40mg/) Start: 07-11-2024 End: 07-11-2024 Office outpatient visit 15 minutes [facility] Work Phone: [facility] Comment on above: Upper respiratory tr act infection, unspecified type (Primary Dx); Pharyngitis, unspecified etiology Start: 07-11-2024 End: 07-11-2024 ambulatory [facility] Start: 06-30-2024 End: 06-30-2024 Office outpatient visit 25 minutes Wojciech Treviño DO Work Phone: [facility] Comment on above: Acute deep vein thro mbosis (DVT) of brachial vein of left upper extremity ([facility]-HCC) (Primary Dx); Paroxysmal atrial fibrillation (CMS-HCC); Stage 3a chronic kidney disease (CMS-HCC); Localized osteoarthritis of right knee; Obesity, morbid ([facility]-HCC) Start: 06-30-2024 End: 06-30-2024 ambulatory [facility] Start: 06-14-2024 End: 06-14-2024 ambulatory Rheu Chair 1 [facility] Work Phone: Infusion Comment on above: Systemic lupus eryth ematosus, unspecified SLE type, unspecified organ involvement status (HCC) (Primary Dx) Start: 06-13-2024 End: 06-13-2024 Refill Wojciech Treviño DO Work Phone: [facility] Start: 06-13-2024 End: 06-13-2024 ambulatory WOJCIECH MCINTYRE RIVERTON Facility:[facility] Start: 06-10-2024 End: 06-13-2024 ambulatory [facility] Comment on above: Infusion Thursday Start: 06-10-2024 End: 06-13-2024 E-mail encounter from caregiver [facility] In[facility] Start: 05-27-2024 End: 05-27-2024 Orders Only Nadege Murphy DO Work Phone: Rheumatology Comment on above: Systemic lupus eryth ematosus, unspecified SLE type, unspecified organ involvement status (HCC) (Primary Dx) Start: 05-26-2024 End: 05-26-2024 Telephone encounter Kimmy Cerda PT [facility] Comment on above: re: PT (Contacted re : last PT she wanted to fu w/ Dr. Morales before continuing on. She stated per Fior no recommendation of anymore PT at this time; sx is needed due to [id number].) Start: 05-26-2024 End: 05-26-2024 ambulatory WOJCIECH MCINTYRE RIVERTON Facility:[facility] Start: 05-20-2024 End: 05-20-2024 ambulatory Dony Bean RT(R) Radiology Comment on above: Radiology XR Start: 05-20-2024 End: 05-20-2024 Patient encounter procedure Dony Bean RT(R) Radiology Comment on above: Primary osteoarthrit is of left knee (Primary Dx); Arthritis of left knee; Left knee pain, unspecified chronicity Start: 05-20-2024 End: 05-20-2024 Subsequent hospital visit by physician Helen Jennings Work Phone: Radiology Comment on above: Left knee pain, unsp ecified chronicity [M25.562] Start: 05-19-2024 End: 05-19-2024 Office outpatient visit 25 minutes Wojciech Treviño DO Work Phone: [facility] Phys[facility] Internal Medicine - Family Medicine Comment on above: Acute deep vein thro mbosis (DVT) of brachial vein of left upper extremity (CMS-HCC) (Primary Dx); Localized osteoarthritis of right knee; Essential hypertension; Obesity, morbid ([facility]-HCC); Need for immunization against influenza Start: 05-19-2024 End: 05-19-2024 ambulatory DIX Taz [facility] Start: 05-18-2024 End: 05-18-2024 [facility] Start: 05-18-2024 End: 05-18-2024 Patient encounter procedure Nadege Murphy DO Work Phone: Rheumatology Comment on above: Systemic lupus eryth ematosus, unspecified SLE type, unspecified organ involvement status (HCC) (Primary Dx) Start: 05-16-2024 End: 05-16-2024 ambulatory [facility] Start: 05-16-2024 End: 05-16-2024 Subsequent hospital visit by physician Cyrus [id number] Cr [id number] Bp/Holter [facility] Comment on above: Arrived Start: 05-16-2024 End: 05-16-2024 Telephone encounter Kimmy Cerda PT [facility] Comment on above: re: PT's this week ( She had called and lm noting this week she is busy w/ scheduled doctor appts and the 2 PT's scheduled she is unable to attend. She said Thursday she has a fu w/ referring provider and noted she'd contact after that w/ recommendation.) Start: 05-16-2024 End: 05-16-2024 ambulatory [facility] Start: 05-16-2024 End: 05-16-2024 Office outpatient visit 25 minutes Christian Kaur AFRICAN HISTORY PROFESSOR-RESPIRATORY CLINICIAN Work Phone: [facility] Comment on above: Paroxysmal atrial fi brillation (Multi) (Primary Dx) Start: 05-12-2024 End: 05-12-2024 Bamboo flowsheet Patrick Argueta FLASH DESIGNER [facility] Start: 05-12-2024 End: 05-12-2024 Bamboo flowsheet Patrick Argueta FLASH DESIGNER [facility] Start: 05-12-2024 End: 05-12-2024 ambulatory Patrick Argueta FLASH DESIGNER [facility] Comment on above: Unilateral primary o steoarthritis, left knee (Primary Dx) Start: 05-09-2024 End: 05-09-2024 Bamboo flowsheet Kimmy Cerda PT [facility] Start: 05-09-2024 End: 05-09-2024 Bamboo flowsheet Kimmy Cerda PT [facility] Start: 05-09-2024 End: 05-09-2024 ambulatory KIMMY CERDA [facility] Comment on above: Unilateral primary o steoarthritis, left knee (Primary Dx) Start: 04-21-2024 End: 04-21-[address] [facility] Start: 04-19-2024 End: 08-01-2024 Telephone encounter Nadege Murphy DO Work Phone: Rheumatology Start: 04-19-2024 End: 04-19-2024 ambulatory Dinau Chair 4 [facility] Work Phone: Infusion Comment on above: Systemic lupus eryth ematosus, unspecified SLE type, unspecified organ involvement status (HCC) (Primary Dx) Start: 04-16-2024 End: 04-16-[address] Berumen [facility] [employer] fields Comment on above: Results Start: 04-14-2024 End: 04-15-2024 ambulatory [facility] In[facility] Comment on above: Infusion 04/19 Start: 04-14-2024 End: 04-15-2024 E-mail encounter from caregiver [facility] Infusion Start: 04-07-2024 End: 04-07-2024 Encounter for other preprocedural examination JAUN S [facility] Start: 04-07-2024 End: 04-07-2024 Evaluation and management of inpatient JUAN CHINO [facility] Start: 04-07-2024 End: 04-07-2024 Patient encounter status Juan Chino MD Work Phone: [facility] Work Phone: Start: 04-07-2024 End: 04-07-2024 Subsequent hospital visit by physician Juan Chino MD Work Phone: [facility] Comment on above: Paroxysmal atrial fi brillation (Multi); Epistaxis; Anemia, unspecified type; Preop testing Start: 03-30-2024 End: 03-30-2024 Office outpatient visit 25 minutes Wojciech Treviño DO Work Phone: [facility] Comment on above: Essential hypertensi on (Primary Dx); Localized osteoarthritis of left knee; Varicose veins of left upper extremity; Localized swelling, mass and lump, head; Mixed hyperlipidemia; Acquired hypothyroidism; Hyperparathyroidism ([facility]-HCC); Obesity, morbid (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] Start: 03-21-2024 Encounter for other preprocedural examination JUAN CHINO [facility] Start: 03-21-2024 End: 12-07-2024 Patient encounter status Juan Chino MD Work Phone: [facility] Work Phone: Start: 03-21-2024 End: 03-21-2024 Refill Monica Theodore CMA [facility] Start: 03-19-2024 End: 03-20-2024 Refill Wojciech Treviño DO Work Phone: [facility] Start: 03-17-2024 ambulatory Julia hamilton PA-C Work Phone: [facility] Comment on above: Knee Xray Start: 03-17-2024 E-mail encounter reena price caregiver Julia Ann PA-C Work Phone: [facility] Start: 03-16-2024 ambulatory Nadege roberto DO Work Phone: Rheumatology Comment on above: Muscle pain Start: 03-16-2024 E-mail encounter reena price caregiver [facility] Provider [facility] Start: 03-16-2024 Patient encounter procedure [facility] Provider [facility] Comment on above: Appointment Reschedu led to 06/10/24 Start: 03-15-2024 End: 03-15-2024 Subsequent hospital visit by physician Xr [facility] Radiology Comment on above: Osteopenia of multip le sites [M85.89] Start: 03-15-2024 End: 03-15-2024 Patient encounter procedure Julia Ann PA-C Work Phone: [facility] Comment on above: Osteopenia of multip le sites (Primary Dx); S/P parathyroidectomy; halfway (current) use of 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; Acute pain of left knee Start: 03-15-2024 End: 03-15-2024 Subsequent hospital visit by physician [facility] 2 Radiology Comment on above: Osteopenia, unspecif ied location [M85.80] Start: 03-04-2024 ambulatory Dione Lozada Work Phone: Gastroenterology Comment on above: Medication Refill Request Start: 02-23-2024 End: 02-23-2024 ambulatory Rheu Chair 2 [facility] Work Phone: Infusion Comment on above: Systemic lupus eryth ematosus, unspecified SLE type, unspecified organ involvement status (HCC) (Primary Dx) Start: 02-19-2024 ambulatory [facility] Comment on above: Infusion for 02/22 Start: 02-19-2024 E-mail encounter reena price caregiver [facility] Infusion Start: 02-17-2024 Refill Dione Lozada Work Phone: Gastroenterology Comment on above: Refill Request Start: 02-16-2024 End: 02-17-2024 Telephone encounter Wojciech Treviño DO Work Phone: [facility] Internal Medicine - Family Medicine Start: 02-16-2024 End: 02-16-2024 ambulatory WOJCIECH G [facility] Start: 02-16-2024 End: 02-16-2024 Patient encounter procedure Wojciech Treviño DO Work Phone: [facility] Internal Medicine - Family Medicine Comment on above: Medicare annual well ness visit, subsequent (Primary Dx); Screening for depression Start: 02-15-2024 End: 02-15-2024 ambulatory [facility] Start: 02-15-2024 End: 02-15-2024 Office outpatient visit 25 minutes Christian Hamilton AFRICAN HISTORY PROFESSOR-RESPIRATORY CLINICIAN Work Phone: [facility] Comment on above: Paroxysmal atrial fi brillation (Multi) (Primary Dx) Start: 01-08-2024 Refill Dione Lozada Work Phone: Gastroenterology Comment on above: Refill Request (prot adam) Start: 01-05-2024 End: 01-05-2024 ambulatory JUAN CHINO [facility] Start: 01-05-2024 End: 01-05-2024 Subsequent hospital visit by physician Juan Chino MD Work Phone: [facility] Comment on above: Persistent atrial fi brillation (Multi); Atypical atrial flutter (Multi) Start: 01-04-2024 End: 01-04-2024 ambulatory [facility] Start: 12-29-2023 End: 12-29-2023 Patient encounter procedure Rdau Salazar MD Work Phone: Kidney Medicine Comment on above: Stage 3a chronic kid ana maria disease (HCC) (Primary Dx); Membranous glomerulonephritis; Lupus nephritis, ISN/RPS class V (HCC); Screening for genitourinary condition; Hypertension, unspecified type Refill Request Start: 12-27-2023 Orders Only Nadege A Little pardeep DO Work Phone: Rheumatology Start: 12-25-2023 Telephone encounter Nurse [facility] Work Phone: Infusion Start: 12-25-2023 End: 12-25-2023 ambulatory Nadege Murphy DO Work Phone: Rheumatology Comment on above: Systemic lupus eryth ematosus, unspecified SLE type, unspecified organ involvement status (HCC) (Primary Dx) Start: 12-25-2023 End: 12-25-2023 Telemedicine consultation with patient Nadege Murphy DO Work Phone: Rheumatology Start: 12-24-2023 End: 12-24-2023 Orders Only Nadege Murphy DO Work Phone: Rheumatology Comment on above: Systemic lupus eryth ematosus, unspecified SLE type, unspecified organ involvement status (HCC) (Primary Dx) Start: 12-22-2023 ambulatory [facility] Comment on above: Infusion for 12/23 Start: 12-22-2023 E-mail encounter fro m caregiver [facility] Infusion Start: 12-22-2023 End: 12-22-2023 Patient encounter procedure Dione Frances MD Work Phone: Gastroenterology Comment on above: Diarrhea, unspecifie d type (Primary Dx); Other ulcerative colitis without complication (HCC) Start: 12-21-2023 Orders Only Nadege roberto DO Work Phone: Rheumatology Comment on above: Rheumatology labs Start: 12-15-2023 Refill Dione Lozada Work Phone: Gastroenterology Comment on above: Refill Request Refill Start: 12-14-2023 End: 12-14-2023 Refill Wojciech Treviño DO Work Phone: [facility] Start: 12-08-2023 End: 12-08-2023 Patient encounter procedure Beverly Franco DPM Work Phone: Podiatry Comment on above: Pre-ulcerative callu ses (Primary Dx); Osteoarthritis of midtarsal joint of left foot; Hammertoe, bilateral; Hav (hallux abducto valgus), unspecified laterality; Pain due to onychomycosis of toenails of both feet Start: 11-26-2023 End: 11-26-2023 Admission to same day surgery center DO Wojciech Treviño Work Phone: [facility]-Pro[facility] Outpatient Work Phone: Start: 11-26-2023 End: 11-26-2023 ambulatory DO Wojciech Treviño Work Phone: [facility] Work Phone: Start: 11-16-2023 End: 11-16-2023 ambulatory JUAN CHINO [facility] Start: 11-16-2023 End: 11-16-2023 Office outpatient new 45 minutes Juan Chino MD Work Phone: [facility] Comment on above: Atypical atrial flut ter (CMS/HCC) (Primary Dx); Paroxysmal atrial fibrillation (CMS/HCC); At medium risk for stroke; Post-menopausal bleeding; Epistaxis Start: 11-09-2023 End: 11-09-2023 Professional / ancillary services management Kalyn Anthony LPN [facility] Comment on above: Paroxysmal atrial fi brillation (CMS/HCC) Start: 10-29-2023 End: 10-29-2023 Office outpatient visit 25 minutes Yuriy Conway MD Work Phone: [facility] Comment on above: Paroxysmal atrial fi brillation (CMS/HCC) (Primary Dx); High risk medication use; Essential hypertension; 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; Vitamin D deficiency disease Start: 10-09-2023 End: 10-09-2023 Patient encounter procedure Beverly Franco DPM Work Phone: Podiatry Comment on above: Pre-ulcerative callu ses (Primary Dx); Osteoarthritis of midtarsal joint of left foot; Osteoarthritis of midtarsal joint of right foot Start: 10-01-2023 End: 10-01-2023 ambulatory Rheu Chair 7 Digna Work Phone: Infusion Comment on above: Systemic lupus eryth ematosus, unspecified SLE type, unspecified organ involvement status (HCC) (Primary Dx) Start: 09-30-2023 Telephone encounter Sandy garcia MD Work Phone: General Surgery Comment on above: Orders Start: 09-29-2023 Orders Only Nadege Susan roberto DO Work Phone: Rheumatology Comment on above: Infusion for 10/01/23 Start: 09-22-2023 Orders Only Cha Staley AFRICAN HISTORY PROFESSOR-PLATE EMBOSSER Work Phone: [facility] Start: 09-21-2023 Refill Cha Staley AFRICAN HISTORY PROFESSOR-PLATE EMBOSSER Work Phone: [facility] Start: 09-21-2023 End: 09-21-2023 Admission to same day surgery center DO Wojciech Treviño Work Phone: [facility] Work Phone: Start: 09-21-2023 End: 09-21-2023 ambulatory DO Wojciech Treviño Work Phone: [facility] Work Phone: Start: 09-17-2023 End: 09-17-2023 Office outpatient visit 40 minutes Yuriy Conway MD Work Phone: [facility] Comment on above: Atypical atrial flut ter (CMS/HCC) (Primary Dx); Paroxysmal atrial fibrillation (CMS/HCC); Essential hypertension; Obstructive sleep apnea; Never smoked any substance; Other forms of systemic lupus erythematosus, unspecified organ involvement status (CMS/HCC); Morbid obesity (CMS/HCC); High risk medication use; Dyslipidemia Start: 09-14-2023 Refill Wojciech barnes DO Work Phone: [facility] Start: 09-01-2023 End: 09-01-2023 Office outpatient visit 15 minutes Cha Staley AFRICAN HISTORY PROFESSOR-PLATE EMBOSSER Work Phone: [facility] Comment on above: Viral upper respirat ory tract infection (Primary Dx) Start: 08-27-2023 End: 08-27-2023 ambulatory AUGUST BILL Not Available Start: 08-20-2023 Orders Only Wojciech barnes DO Work Phone: [facility] Start: 08-05-2023 End: 08-05-2023 ambulatory [place] BILL Not Available Start: 07-20-2023 ambulatory Dalila Jones DPM Work Phone: Orthopaedics Start: 07-20-2023 Telephone encounter Ezequiel Jones DPM Work Phone: Orthopaedics Comment on above: Surgical Followup Start: 07-07-2023 Telephone encounter Ezequiel Jones DPM Work Phone: Orthopaedics Comment on above: Surgical Followup Start: 07-02-2023 End: 07-02-2023 Orders Only Beverly Franco DPM Work Phone: Podiatry Comment on above: Pain in left foot (P rimary Dx) Ulcer of toe of righ t foot, limited to breakdown of skin (HCC) (Primary Dx); Pre-ulcerative calluses; Osteoarthritis of midtarsal joint of left foot; Osteoarthritis of midtarsal joint of right foot Start: 07-01-2023 End: 07-01-2023 ambulatory Rheu Chair 7 Digna Work Phone: Infusion Comment on above: Systemic lupus eryth ematosus, unspecified SLE type, unspecified organ involvement status (HCC) (Primary Dx); High risk medication use Start: 06-24-2023 Orders Only Nadege roberto DO Work Phone: Rheumatology Start: 06-16-2023 Refill Dione Lozada Work Phone: Gastroenterology Comment on above: Refill Request Start: 06-10-2023 Telephone encounter Heather cortez PA-C Work Phone: [facility] [place] Comment on above: Medication Question Start: 04-23-2023 ambulatory Nadege roberto DO Work Phone: Rheumatology Comment on above: Missed appt and test Start: 04-17-2023 Orders Only Cha Staley CN P Work Phone: Hematology/Oncology Comment on above: Mixed hyperlipidemia (Primary Dx); Hypomagnesemia Start: 04-17-2023 Refill Dione Lozada Work Phone: Gastroenterology Comment on above: Refill Request Start: 04-15-2023 End: 04-15-2023 Patient encounter procedure Dione Frances MD Work Phone: Gastroenterology Comment on above: Other ulcerative col itis without complication (HCC) (Primary Dx); Gastroesophageal reflux disease without esophagitis Start: 04-10-2023 End: 04-10-2023 ambulatory Nadege Murphy DO Work Phone: Rheumatology Comment on above: Systemic lupus eryth ematosus, unspecified SLE type, unspecified organ involvement status (HCC) (Primary Dx); Thin blood (HCC) Start: 04-10-2023 End: 04-10-2023 Telemedicine consultation with patient Nadege A Radames DO Work Phone: [facility] Start: 04-08-2023 Telephone encounter Dione wheeler MD Work Phone: Gastroenterology Comment on above: Results (Colon) Start: 04-02-2023 End: 04-02-2023 Subsequent hospital visit by physician Dione Frances MD Work Phone: Ambulatory Surgery Comment on above: IBD (inflammatory tayla wel disease) [K52.9] Start: 03-19-2023 End: 03-19-2023 ambulatory Rheu Chair 6 Digna Work Phone: Infusion Comment on above: Systemic lupus eryth ematosus, unspecified SLE type, unspecified organ involvement status (HCC) (Primary Dx) Start: 03-17-2023 ambulatory [facility] In[facility] Comment on above: Infusion for 03/19 Start: 03-17-2023 E-mail encounter reena m caregiver [facility] Start: 03-15-2023 Refill Dione Lozada Work Phone: Gastroenterology Comment on above: Refill Request Start: 03-12-2023 End: 03-12-2023 Patient encounter procedure Beverly Franco DPM Work Phone: Podiatry Comment on above: Ulcer of toe of righ t foot, limited to breakdown of skin (HCC) (Primary Dx); Pre-ulcerative calluses Start: 2023 Telephone encounter Dione wheeler MD Work Phone: Gastroenterology Comment on above: Appointment Start: 02-16-2023 Refill Evelin Alicea MD Work Phone: Rheumatology Comment on above: Refill Request Start: 02-13-2023 Telephone encounter Dione wheeler MD Work Phone: Gastroenterology Comment on above: Results (labs) Start: 02-12-2023 End: 02-12-2023 Patient encounter procedure Beverly Franco DPM Work Phone: Podiatry Comment on above: Ulcer of toe of righ t foot, limited to breakdown of skin (HCC) (Primary Dx); Pre-ulcerative calluses; Cellulitis of second toe of right foot Start: 02-09-2023 Refill Heaven Lozada Work Phone: Cardiology Comment on above: Refill Request; Foll ow Up Start: 02-09-2023 Telephone encounter Monica Lozada Work Phone: Endocrine Surgery Comment on above: Results Start: 02-05-2023 Orders Only Nadege roberto DO Work Phone: Rheumatology Start: 02-04-2023 End: 02-04-2023 Patient encounter procedure Nadege Murphy DO Work Phone: Rheumatology Comment on above: Systemic lupus eryth ematosus, unspecified SLE type, unspecified organ involvement status (HCC) (Primary Dx); Need for vaccination against Streptococcus pneumoniae Start: 01-22-2023 End: 01-22-2023 Patient encounter procedure Beverly Franco DPM Work Phone: Podiatry Comment on above: Ulcer of toe of righ t foot, limited to breakdown of skin (HCC) (Primary Dx); Pre-ulcerative calluses Start: 01-12-2023 Refill Dione Lozada Work Phone: Gastroenterology Comment on above: Refill Request (vivek stipol) Start: 12-15-2022 End: 12-15-2022 ambulatory Dinau Chair 2 Digna Work Phone: Infusion Comment on above: Systemic lupus eryth ematosus, unspecified SLE type, unspecified organ involvement status (HCC) (Primary Dx); High risk medication use Start: 12-15-2022 Patient encounter procedure Dione Frances MD Work Phone: Gastroenterology Comment on above: Office visit Start: 12-12-2022 ambulatory Evelin Alicea MD Work Phone: Infusion Comment on above: Infusion Confirmatio n Start: 12-12-2022 E-mail encounter fro m caregiver Evelin Alicea MD Work Phone: [facility] Start: 11-24-2022 Refill Dione Lozada Work Phone: Gastroenterology Comment on above: Refill Request (iron ) Start: 10-28-2022 Refill Dione Blantontai Lozada Work Phone: Gastroenterology Comment on above: Refill Request Start: 10-24-2022 ambulatory Dalila Jones DPM Work Phone: Orthopaedics Start: 10-24-2022 Telephone encounter Ezequiel Jones DPM Work Phone: Orthopaedics Comment on above: Surgical Followup Start: 10-23-2022 ambulatory Dione Blantontai Lozada Work Phone: Gastroenterology Comment on above: Diarrhea and stomach acid Start: 10-21-2022 ambulatory Dione Frances Zach Lozada Work Phone: Gastroenterology Comment on above: Colestipole Start: 10-21-2022 Telephone encounter Ezequiel Jones DPM Work Phone: Orthopaedics Comment on above: Surgical Followup Start: 10-16-2022 End: 10-16-2022 Office outpatient visit 15 minutes Julia Ann PA-C Work Phone: [facility] Comment on above: Osteopenia, unspecif ied location (Primary Dx); S/P parathyroidectomy (HCC); 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 Start: 10-15-2022 ambulatory Dione Frances Zach Lozada Work Phone: Gastroenterology Comment on above: Colestipol Start: 09-30-2022 ambulatory Dione Frances Zach Lozada Work Phone: Gastroenterology Comment on above: Cdif Start: 09-28-2022 End: 09-29-[address] WOJCIECH TREVIÑO Facility:[id number] Start: 09-24-2022 Rx Renewal Wojciech barnes Work Phone: [facility] 250 DO Work Phone: Start: 09-21-2022 Refill Dionecarlos Blantontai Lozada Work Phone: Gastroenterology Comment on above: Refill Request (Lial da) Start: 09-21-2022 Refill Keyanna Carter APRN.CNP Work Phone: Cardiology Comment on above: Refill Request Start: 09-18-2022 Chart Update Wojciech barnes Work Phone: [facility] 250 DO Work Phone: Start: 09-17-[address] Yuriy Ramos0m Fac ility:[id number] Start: 09-17-2022 Patient encounter procedure Wojciech Treviño Work Phone: [facility] [address] [place] Work Phone: Start: 09-15-2022 Telephone encounter Monica Lozada Work Phone: Endocrine Surgery Comment on above: [...] antibiotics. ) Start: 09-10-2022 Rx Renewal Wojciech Serna molly Work Phone: [facility] 600 DO Work Phone: Start: 09-10-2022 Refill Dione Lozada Work Phone: Gastroenterology Comment on above: Refill Request Start: 09-08-2022 Telephone encounter Monica Lozada Work Phone: Endocrine Surgery Comment on above: Patient Update Start: 08-28-2022 Encounter for preprocedural laboratory examination DR DOCTOR SAGE [facility] Start: 08-26-2022 Telephone encounter Monica Lozada Work Phone: Endocrine Surgery Comment on above: Results (Covid) Start: 08-25-2022 End: 08-26-2022 Orders Only Monica Booker MD Work Phone: Endocrine Surgery Comment on above: Hyperparathyroidism (HCC) (Primary Dx) Start: 08-25-2022 End: 08-26-2022 Encounter for preprocedural laboratory examination DR DOCTOR SAGE Facility: Start: 08-22-2022 Telephone encounter Monica Lozada Work Phone: Endocrine Surgery Comment on above: Patient Update Preparations For Maura melissa Start: 08-22-[address] Yuriy Baum Fac ility:[id number] Start: 08-21-2022 Telephone encounter Monica Lozada Work Phone: Endocrine Surgery Comment on above: Supervisor Public Health Nursing - O ther Start: 08-15-2022 Encounter for other preprocedural examination Dr. Yuriy Baum [facility] [place] Start: 08-15-[address] Yuriy Baum Fac ility:[id number] Start: 08-01-2022 Office consultation new/estab patient 80 min Wojciech Treviño [facility] Work Phone: Start: 08-01-2022 Office outpatient ne w 60 minutes Wojciech Treviño Work Phone: [facility] Work Phone: Start: 08-01-2022 Patient encounter procedure Wojciech Sernang Work Phone: [facility] 250 DO Work Phone: Start: 07-31-2022 End: 07-31-2022 Admission to establishment [facility] [place] [facility] Work Phone: [facility] Start: 07-31-2022 End: 07-31-2022 ambulatory [facility] [place] [facility] Work Phone: Pre Anesthesia Comment on [...] Start: 07-31-2022 End: 07-31-2022 Preprocedural examination done [facility] [place] [facility] Work Phone: Pre Anesthesia Start: 07-23-2022 Telephone encounter Dione wheeler MD Work Phone: Gastroenterology Comment on above: Orders Start: 07-17-2022 ambulatory Lemuel salinas MD Work Phone: Endocrinology Comment on above: Zoom appt. Start: 07-07-2022 End: 07-07-2022 Orders Only Monica Booker MD Work Phone: Endocrine Surgery Comment on above: Primary hyperparathy roidism (HCC) (Primary Dx) Hyperparathyroidism (HCC) [E21.3] Hypercalcemia; Hyperparathyroid (HCC) Start: 07-01-2022 Orders Only Monica Booker MD Work Phone: Endocrine Surgery Comment on above: Hyperparathyroidism (HCC) (Primary Dx) Consult (Face Sheet) Start: 06-17-2022 ambulatory Sandy Underwood MD Work Phone: Endocrinology BMI Comment on above: Pancreas check Start: 06-14-2022 ambulatory Evelin Alicea MD Work Phone: Rheumatology Comment on above: Blood work results Start: 06-12-2022 End: 06-12-2022 ambulatory Dinau Chair 6 Main Work Phone: Rheumatology Comment on above: Systemic lupus eryth ematosus, unspecified SLE type, unspecified organ involvement status (HCC) (Primary Dx); Hyperparathyroid (HCC) Start: 06-11-2022 End: 06-11-2022 Patient encounter procedure Lemuel Bejarano MD Work Phone: Endocrinology Comment on above: Hypercalcemia; Hyperparathyroid (HCC) Start: 05-23-2022 ambulatory Sandy Underwood MD Work Phone: Endocrinology BMI Comment on above: MRI Start: 05-19-2022 ambulatory Dalila Jones DPM Work Phone: Orthopaedics Start: 05-19-2022 Telephone encounter Ezequiel Jones DPM Work Phone: Orthopaedics Comment on above: Surgical Followup Start: 05-14-2022 Refill Dione Lozada Work Phone: Gastroenterology Comment on above: Refill Request Refill Start: 05-12-2022 End: 05-12-2022 ambulatory Julia Peña PA-C Work Phone: [facility] Comment on above: Osteopenia, unspecif ied location (Primary Dx); Balance problem; Hypercalcemia; Hyperparathyroid (HCC) Start: 05-12-2022 End: 05-12-2022 Telemedicine consultation with patient Julia Mariana WEISS Work Phone: [facility] Start: 05-06-2022 Get Medical Advice Dione godinez MD Work Phone: Gastroenterology Comment on above: Refill Refill Request Start: 04-18-2022 End: 04-18-2022 Patient encounter procedure Julia Peña PA-C Work Phone: [facility] Comment on above: Osteopenia, unspecif ied location [...] Calcium level Start: 03-17-2022 E-mail encounter reena price caregiver Evelin Alicea MD Work Phone: [facility] Start: 03-13-2022 End: 03-13-2022 Patient encounter procedure Bone Density Prodigy [facility] Start: 03-13-2022 End: 03-13-2022 Nursing evaluation [...] above: Covid test Start: 03-12-2022 E-mail encounter reena m caregiver [facility] Provider [facility] Start: 03-06-2022 Telephone encounter Evelin Alicea MD Work Phone: Rheumatology Comment on above: Orders (Evusheld) Start: 02-24-2022 Telephone encounter Dione wheeler MD Work Phone: Gastroenterology Comment on above: Results; Orders Start: 02-23-2022 Refill Evelin Alicea MD Work Phone: Rheumatology Comment on above: Refill Request Start: 02-21-2022 Telephone encounter Dione wheeler MD Work Phone: Gastroenterology Comment on above: Results Start: 02-20-2022 ambulatory Dione Lozada Work Phone: Gastroenterology Comment on above: Return call Start: 02-14-2022 ambulatory Dione Lozada Work Phone: Gastroenterology Comment on above: Er visit Prescription Start: 02-13-2022 End: 02-13-[address] MIRTHA MAYEN Facility: Start: 02-13-2022 End: 02-13-2022 Emergency department patient visit DO Wojciech Treviño Work Phone: [facility] Start: 02-07-2022 End: 02-09-2022 Evaluation and management of inpatient DO Wojciech Treviño Work Phone: [facility] [place] [facility] Start: 01-31-2022 ambulatory Dione Lozada Work Phone: Gastroenterology Comment on above: Questions Start: 01-30-2022 ambulatory Dione Lozada Work Phone: [facility] Start: 01-30-2022 Patient encounter procedure Dione Frances MD Work Phone: Gastroenterology Comment on above: [...] of Plaquenil Start: 12-09-2021 End: 12-09-2021 ambulatory Dinau Chair 4 Main Work Phone: Rheumatology Comment on above: Systemic lupus eryth ematosus, unspecified SLE type, unspecified organ involvement status (HCC) (Primary Dx); High risk medication use Start: 11-15-2021 Get Medical Advice Dione godinez MD Work Phone: Gastroenterology Comment on above: Refill Start: 09-12-2021 End: 09-12-2021 Subsequent hospital visit by physician Dione Frances MD Work Phone: Ambulatory Surgery Comment on above: Diarrhea, unspecifie d type [R19.7] Start: 01-04-2021 End: 01-04-2021 Subsequent hospital visit by physician Helen Dillon 1 Work Phone: Radiology Comment on above: Post-op pain [G89.18 ] Start: 11-29-2020 End: 11-29-2020 Subsequent hospital visit by physician Helen Dillon 1 Work Phone: Radiology Comment on above: Pain in right hip [M 25.551] Start: 09-03-2020 End: 09-03-2020 Subsequent hospital visit by physician [facility] D[facility]a Radiology Comment on above: Calculus of gallblad avery without cholecystitis without obstruction [K80.20] Start: 04-26-2020 End: 04-26-2020 Subsequent hospital visit by physician Helen Dillon 1 Work Phone: Radiology Comment on above: Pain [R52] Start: 10-12-2018 Patient encounter procedure [facility] Facility:[id number] Start: 10-06-2018 Patient encounter procedure [facility] Facility:[id number] Preoperative state Wojciech Milan jose Work Phone: [facility] DO Work Phone: Procedures Date Procedure Procedure Detail Performing Clinician Start: 03-10-2025 Arthrocentesis aspir&/inj major jt/bursa w/o us Mary Morales MD Work Phone: Start: 02-01-2025 Ct lower extremity w/o contrast material Aiden Hall MD Work Phone: Start: 01-19-2025 Radex foot complete minimum 3 views Beverly Franco DPM Work Phone: Start: 12-21-2024 Radex foot complete minimum 3 views Beverly Franco DPM Work Phone: Start: 12-19-2024 Adult depression screening assessment Wojciech Treviño DO Work Phone: Start: 12-07-2024 Ecg routine ecg w/least 12 lds w/i&r Yuriy Conway MD Work Phone: Start: 11-28-2024 Arthrocentesis aspir&/inj major jt/bursa w/o Wojciech Treviño DO Work Phone: Start: 11-28-2024 Adult depression screening assessment Wojciech Treviño DO Work Phone: Start: 09-19-2024 Transesophageal echocardiography Wojciech Treviño DO Work Phone: Start: 09-15-2024 CT of chest Wojciech Trevioñ DO Work Phone: Start: 08-29-2024 Plain chest X-ray Wojciech Treviño DO Work Phone: Start: 08-05-2024 Ecg routine ecg w/least 12 lds w/i&r Yuriy Conway MD Work Phone: Start: 07-11-2024 Iaadiadoo streptococcus group a Wojciech Treviño DO Work Phone: Start: 07-11-2024 Adult depression screening assessment Wojciech Treviño DO Work Phone: Start: 06-30-2024 Adult depression screening assessment Wojciech Treviño DO Work Phone: Start: 05-20-2024 Arthrocentesis aspir&/inj major jt/bursa w/o us Mary Morales MD Work Phone: Start: 05-20-2024 Radiologic examination knee 1/2 views Alfredo Norwood PA-C Work Phone: Start: 04-15-[address] [facility] Start: 04-07-2024 Coagulation time activated Interface Unspecifiedprovider Work Phone: Start: 04-07-2024 Ct heart contrast eval cardiac structure&morph Juan Chino MD Work Phone: Start: 03-30-2024 Follow-up visit Follow-up WOJCIECH TREVIÑO Start: 03-30-2024 Adult depression screening assessment Monica Theodore BRANCH RETAIL EXECUTIVE Start: 03-30-2024 Lipid 1996 panel - Serum or Plasma Rena Sawyer Work Phone: Start: 03-15-2024 Radiologic exam knee complete 4/more views Julia Ann PA-C Work Phone: Start: 03-15-2024 Dxa bone density study axial skeleton Julia Ann PA-C Work Phone: Start: 02-16-2024 Adult depression screening assessment Wojciech Treviño DO Work Phone: Start: 02-15-2024 Ecg routine ecg w/least 12 lds trcg only w/o i&r Christian Kaur AFRICAN HISTORY PROFESSOR-RESPIRATORY CLINICIAN Work Phone: Start: 01-05-2024 Electrophysiology study Christian Kaur AFRICAN HISTORY PROFESSOR-RESPIRATORY CLINICIAN Work Phone: Start: 01-04-2024 CBC panel - Blood by Automated count WOJCIECH TREVIÑO Start: 01-04-2024 Basic metabolic 2000 panel - Serum or Plasma WOJCIECH SANTANAJASON Start: 12-02-2023 ELECTROPHYSIOLOGY PROCEDURE JUAN LEYV Start: 11-16-2023 AMB REFERRAL TO CARDIAC ELECTROPHYSIOLOGY JUAN CHINO Start: 11-16-2023 ECG 12-LEAD JUAN CHINO Start: 10-29-2023 Ecg routine ecg w/least 12 lds w/i&r Yuriy Conway MD Work Phone: Start: 10-23-2023 Mri abdomen w/o & w/contrast material Rima Mcallister AFR[employer] HISTORY PROFESSOR.RESPIRATORY CLINICIAN Work Phone: Start: 09-17-2023 Ecg routine ecg w/least 12 lds w/i&r Yuriy Conway MD Work Phone: Start: 09-01-2023 Adult depression screening assessment Cha Staley APRN-PLATE EMBOSSER Work Phone: Start: 04-22-2023 Lipid 1996 panel - Serum or Plasma Heather Gruber PA-C Work Phone: Start: 04-15-2023 Adult depression screening assessment Wojciech Treviño DO Work Phone: Start: 04-02-2023 Colonoscopy flx dx w/collj spec when pfrmd Dione Frances MD Work Phone: Start: 04-02-2023 Colonoscopy Dione Frances MD Work Phone: Start: 04-01-2023 Mammography Dione Frances MD Work Phone: Start: 09-17-2022 Echocardiography Wojciech Treviño Work Phone: Start: 07-07-2022 Parathyroid imaging w/tomographic spect & ct Monica Booker MD Work Phone: Start: 06-12-2022 Comprehensive metabolic [...] Start: 02-08-2022 MRI of head DO Wojciech Treviño Work Phone: Start: 02-07-2022 Computed tomography angiography of abdominal and/or pelvic blood vessel DO Wojciech Treviño Work Phone: Start: 02-07-2022 CT angiography of head DO Wojciech Treviño Work Phone: Start: 02-07-2022 [...] Blood count complete auto&auto difrntl wbc Cuca Brezovec PA Work Phone: Start: 12-09-2021 C-reactive protein Cuca Brezovec PA Work Phone: Start: 11-13-2021 Adult depression screening assessment Dione Frances MD Work Phone: Start: 09-12-2021 CONVERTED SURGICAL PATHOLOGY Dione lujan MD Work Phone: Start: 09-12-2021 SURGICAL PATHOLOGY Dione Frances MD Work Phone: Start: 09-12-2021 Esophagogastroduodenoscopy transoral diagnostic Dione Frances MD Work Phone: Start: 09-12-2021 Colonoscopy flx dx w/collj spec when pfrmd Dione Frances MD Work Phone: Start: 09-12-2021 Colonoscopy Dione Frances MD Work Phone: Start: 01-04-2021 Radex hip unilateral with pelvis 2-3 views Jose Lovelace MD Work Phone: Start: 11-29-2020 Radex hip unilateral with pelvis 2-3 views Jose Lovelace MD Work Phone: Start: 09-03-2020 Us abdominal real time w/image limited Sandy Underwood MD Work Phone: Start: 07-23-2020 Colonoscopy Yuriy Conway MD Work Phone: Start: 04-26-2020 Radex shoulder complete minimum 2 views Gerard Neville Hernandez DO Work Phone: Start: 09-08-2019 Thyrotropin [Units/volume] in Serum or Plasma Yuriy Conway MD Work Phone: Appendectomy Wojciech johnston Work Phone: Excision of cyst Wojciech zarate Work Phone: Operative procedure on foot Wojciech Treviño Work Phone: Tonsillectomy Wojciech barnes Work Phone: Total replacement of hip Jenaro Treviño Work Phone: Plan of Treatment Date Care Activity Detail Author Start: 04-02-2033 Screening for malignant neoplasm of colon [facility] Start: 07-23-2030 Screening for malignant neoplasm of colon [facility] Start: 03-30-2029 Lipid panel Lipid Screening [facility] Start: 04-22-2028 Lipid 1996 panel - Serum or Plasma Lipid Screening [facility] Start: 04-22-2028 Lipid panel Lipid Screening [facility] Start: 04-22-2028 LIPID SCREEN LIPID SCREEN [facility] Start: 04-04-2028 Diabetes Screening Diabetes Screening [facility] Start: 04-02-2028 Screening for malignant neoplasm of colon [facility] Start: 11-17-2027 Diabetes Screening Diabetes Screening [facility] Start: 09-10-2027 LIPID SCREEN LIPID SCREEN [facility] Start: 06-13-2027 Diabetes Screening Diabetes Screening [facility] Start: 05-20-2027 Diabetes Screening Diabetes Screening [facility] Start: 03-15-2027 Diabetes Screening Diabetes Screening [facility] Start: 01-03-2027 Diabetes Screening Diabetes Screening [facility] Start: 12-27-2026 Diabetes Screening Diabetes Screening [facility] Start: 10-13-2026 Diabetes Screening Diabetes Screening [facility] Start: 04-22-2026 DIABETES SCREEN DIABETES SCREEN [facility] Start: 04-22-2026 Diabetes Screening Diabetes Screening [facility] Start: 04-04-2026 Creatinine measurement Serum Creatinine [facility] Start: 02-04-2026 DIABETES SCREEN DIABETES SCREEN [facility] Start: 12-29-2025 Adult BMI Screening Adult BMI Screening [facility] Start: 12-29-2025 Tobacco Screening Tobacco Screening [facility] Start: 12-22-2025 BP Controlled (<130/80) BP Controlled (<130/80) [facility] in Start: 12-19-2025 Adult BMI Screening Adult BMI Screening [facility] Start: 12-19-2025 Depression Screening Depression Screening [facility] Start: 12-19-2025 Tobacco Screening Tobacco Screening [facility] Start: 11-28-2025 Adult BMI Screening Adult BMI Screening [facility] Start: 11-28-2025 Depression Screening Depression Screening [facility] Start: 11-28-2025 Fall Risk Screening Fall Risk Screening [facility] Start: 11-28-2025 Tobacco Screening Tobacco Screening [facility] Start: 11-16-2025 Complete blood count Hemoglobin/Hematocrit [facility] Start: 11-16-2025 Creatinine measurement Serum Creatinine [facility] Start: 10-11-2025 Adult BMI Screening Adult BMI Screening [facility] Start: 10-11-2025 Tobacco Screening Tobacco Screening [facility] Start: 09-19-2025 Echocardiography Echocardiogram [facility] Start: 08-11-2025 Creatinine measurement Serum Creatinine [facility] Start: 08-01-2025 End: 08-01-2025 Patient encounter procedure 08/01/2025 9:20 AM EST Office Visit [facility] [address] [place] [address] Yuriy Conway MD [address] [place] [address] [facility] Start: 07-27-2025 End: 07-27-2025 ambulatory 07/27/2025 9:30 AM EST Infusion Center Infusion [address] [place] [address] CHERYL M32.9 MEDICARE A/B DR LANEY ALICEA STAFFING, X 8 weeks Infusion Comment on above: CHERYL M32.9 MEDICARE A/B DR LANEY ALICEA STAFFING, X 8 weeks Start: 07-11-2025 Adult BMI Screening Adult BMI Screening [facility] Start: 07-11-2025 Depression Screening Depression Screening [facility] Start: 07-11-2025 Fall Risk Screening Fall Risk Screening [facility] Start: 07-11-2025 Tobacco Screening Tobacco Screening [facility] Start: 06-30-2025 Adult BMI Screening Adult BMI Screening [facility] Start: 06-30-2025 Depression Screening Depression Screening [facility] Start: 06-30-2025 DIABETES SCREEN DIABETES SCREEN [facility] Start: 06-30-2025 Fall Risk Screening Fall Risk Screening [facility] Start: 06-30-2025 Tobacco Screening Tobacco Screening [facility] Start: 06-25-2025 LIPID SCREEN LIPID SCREEN [facility] Start: 06-16-2025 End: 06-16-2025 Patient encounter procedure 06/16/2025 9:00 AM EDT Office Visit Gastroenterology [address] [place] [address] Dione Frances MD [address] [place] [address] [place] [address] Diarrhea f/u Gastroenterology Comment on above: Diarrhea f/u Start: 06-14-2025 End: 06-14-2025 Patient encounter procedure 06/14/2025 11:45 AM EDT Office Visit Orthopaedics [address] [place] [address] [place] [address] [place] [address] postop Orthopaedics Comment on above: postop Start: 06-12-2025 DIABETES SCREEN DIABETES SCREEN [facility] Start: 05-24-2025 End: 05-24-2025 Patient encounter procedure 05/24/2025 9:00 AM EDT Office Visit Rheumatology [address] [address] Nadege Murphy DO [address], [address] [place] [address] 6month follow up per walk up Rheumatology Comment on above: 6month follow up per walk up Start: 05-20-2025 Complete blood count Hemoglobin/Hematocrit [facility] Start: 05-19-2025 Adult BMI Screening Adult BMI Screening [facility] Start: 05-19-2025 Tobacco Screening Tobacco Screening [facility] Start: 05-19-2025 End: 05-19-2025 ambulatory 05/19/2025 9:00 AM EDT Infusion Center Infusion [address] [place] [address] BENLYSDENIS M32.9 MEDICARE A/B DR LANEY ALICEA STAFFING, X 8 weeks Infusion Comment on above: KARLALYSDENIS M32.9 MEDICARE A/B DR LANEY ALICEA STAFFING, X 8 weeks Start: 05-17-2025 End: 05-17-2025 Patient encounter procedure 05/17/2025 11:30 AM EDT Office Visit Orthopaedics [address] [place] [address] [place] [address] [place] [address] postop Orthopaedics Comment on above: postop Start: 05-15-2025 End: 05-15-2025 Patient encounter procedure 05/15/2025 11:30 AM EDT Office Visit Orthopaedics [address] [address] Fercho Prather PA-C [address] [place] [address] postop Orthopaedics Comment on above: postop Start: 05-03-2025 End: 05-03-2025 Patient encounter procedure 05/03/2025 9:00 AM EDT Office Visit Orthopaedics [address] [place] [address] Fercho Prather PA-C [address] [place] [address] postop Orthopaedics Comment on above: postop Start: 05-01-2025 End: 05-01-2025 Admission to same day surgery center 05/01/2025 12:20 PM EDT - 05/01/2025 4:05 PM EDT [facility] [address] [place] [address] [place] [address] [place] [address] ARTHRODESIS MIDTARSAL MULTIPLE/TRANSVERSE [facility] Comment on above: ARTHRODESIS MIDTARSAL MULTIPLE/TRANSVERS E Start: 05-01-2025 End: 05-01-2025 Arthrd midtarsl/tarsometatarsal mult/transvrs ARTHRODESIS MIDTARSAL MULTIPLE/TRANSVERSE Arthritis, neuropathic Bone disease 05/01/2025 12:20 PM EDT [facility] Start: 05-01-2025 End: 05-01-2025 Arthrodesis midtarsometatarsal single joint ARTHRODESIS FOOT Arthritis, neuropathic Bone disease 05/01/2025 12:20 PM EDT [facility] Start: 05-01-2025 End: 05-01-2025 Arthrodesis subtalar ARTHRODESIS SUBTALAR Arthritis, neuropathic Bone disease 05/01/2025 12:20 PM EDT [facility] Start: 05-01-2025 End: 05-01-2025 Fluoroscopy up to 1 hour physician/qhp time FLUOROSCOPY UP TO 1 HOUR PHYSCIAN OR OTHER QUAL PROF TIME,SEPARATE PROCEDURE Arthritis, neuropathic Bone disease 05/01/2025 12:20 PM EDT [facility] Start: 05-01-2025 End: 05-01-2025 Lngth/shrt tendon leg/ankle 1 tendon spx LENGTHENING CORD HEEL Arthritis, neuropathic Bone disease 05/01/2025 12:20 PM EDT [facility] Start: 05-01-2025 Subsequent hospital visit by physician 05/01/2025 12:20 PM EDT Hospital En[facility] [address] [place] [address] [place] [address] [place] [address] [place], [place] [id number] Arthritis, neuropathic [M14.60], Bone disease [M89.9] [facility] Comment on above: Arthritis, neuropathic [M14.60], Bone di sease [M89.9] Start: 05-01-2025 End: 05-01-2025 Patient encounter procedure 05/01/2025 8:30 AM EDT [facility] [address] [place] [address] Wojciech Treviño DO [address], [place] [address] [facility] Start: 04-19-2025 End: 04-19-2025 Anesthesia consultation 04/19/2025 1:00 PM EDT PAT Pre Anesthesia [address] [place] [address] 2, Pacc [place] [address] [place] [address] pacc Pre Anesthesia Comment on above: pacc Start: 04-18-2025 End: 04-18-2025 Patient encounter procedure 04/18/2025 10:30 AM EDT [facility] [address] [place] [address] Fercho Prather PA-C [address] [place] [address] [facility] Comment on above: postop Start: 04-17-2025 Influenza vaccination [facility] Start: 04-15-2025 Screening for malignant neoplasm of breast [facility] Start: 04-04-2025 End: 04-04-2025 Patient encounter procedure 04/04/2025 8:20 AM EDT Office Visit Pulmonary Medicine [address] [place] [address] [place] [address] [place] [address] 3 month f/u Pulmonary Medicine Comment on above: 3 month f/u Start: 04-03-2025 End: 04-03-2025 Admission to same day surgery center 04/03/2025 11:15 AM EDT - 04/03/2025 3:00 PM EDT [facility] [address] [address] [place] [address] [place] [address] ARTHRODESIS MIDTARSAL MULTIPLE/TRANSVERSE [facility] Comment on above: ARTHRODESIS MIDTARSAL MULTIPLE/TRANSVERS E Start: 04-03-2025 End: 04-03-2025 Arthrd midtarsl/tarsometatarsal mult/transvrs ARTHRODESIS MIDTARSAL MULTIPLE/TRANSVERSE Arthritis, neuropathic Bone disease 04/03/2025 11:15 AM EDT [facility] Start: 04-03-2025 End: 04-03-2025 Arthrodesis midtarsometatarsal single joint ARTHRODESIS FOOT Arthritis, neuropathic Bone disease 04/03/2025 11:15 AM EDT [facility] Start: 04-03-2025 End: 04-03-2025 Arthrodesis subtalar ARTHRODESIS SUBTALAR Arthritis, neuropathic Bone disease 04/03/2025 11:15 AM EDT [facility] Start: 04-03-2025 End: 04-03-2025 Fluoroscopy up to 1 hour physician/qhp time FLUOROSCOPY UP TO 1 HOUR PHYSCIAN OR OTHER QUAL PROF TIME,SEPARATE PROCEDURE Arthritis, neuropathic Bone disease 04/03/2025 11:15 AM EDT [facility] Start: 04-03-2025 End: 04-03-2025 Lngth/shrt tendon leg/ankle 1 tendon spx LENGTHENING CORD HEEL Arthritis, neuropathic Bone disease 04/03/2025 11:15 AM EDT [facility] Start: 04-03-2025 Subsequent hospital visit by physician 04/03/2025 11:15 AM EDT Hospital Encounter [facility] [address] [address] [place] [address] [place], [place] [phone] Arthritis, neuropathic [M14.60], Bone disease [M89.9] [facility] Comment on above: Arthritis, neuropathic [M14.60], Bone di sease [M89.9] Start: 04-03-2025 End: 04-03-2025 Admission to same day surgery center [facility] Comment on above: ARTHRODESIS MIDTARSAL MULTIPLE/TRANSVERS E Start: 04-03-2025 End: 04-03-2025 Arthrd midtarsl/tarsometatarsal mult/transvrs [facility] Start: 04-03-2025 End: 04-03-2025 Arthrodesis midtarsometatarsal single joint [facility] Start: 04-03-2025 End: 04-03-2025 Arthrodesis subtalar [facility] Start: 04-03-2025 End: 04-03-2025 Fluoroscopy up to 1 hour physician/qhp time [facility] Start: 04-03-2025 End: 04-03-2025 Lngth/shrt tendon leg/ankle 1 tendon spx [facility] Start: 04-03-2025 Subsequent hospital visit by [facility] Comment on above: Arthritis, neuropathic [M14.60], Bone di sease [M89.9] Start: 03-30-2025 Adult BMI Screening Adult BMI Screening [facility] Start: 03-30-2025 Depression Screening Depression Screening [facility] Start: 03-30-2025 Tobacco Screening Tobacco Screening [facility] Start: 03-23-2025 End: 03-23-2025 ambulatory 03/23/2025 9:00 AM EDT Infusion Center Infusion [address] [place] [address] BENLYSTA M32.9 MEDICARE A/B DR LANEY ALICEA STAFFING, X 8 weeks Infusion Comment on above: BENLYSDENIS M32.9 MEDICARE A/B DR LANEY ALICEA STAFFING, X 8 weeks Start: 03-20-2025 End: 03-20-2025 Anesthesia consultation 03/20/2025 9:00 AM EDT PAT Pre Anesthesia [address] [facility] [place] [address] 2, Pacc [place] [address] [facility] [place] [address] pacc Pre Anesthesia Comment on above: pacc Start: 03-15-2025 BP Controlled (<130/80) BP Controlled (<130/80) [facility] Start: 03-13-2025 DIABETES SCREEN DIABETES SCREEN [facility] Start: 03-10-2025 End: 03-10-2025 Patient encounter procedure 03/10/2025 9:30 AM EDT Office Visit Orthopaedics [address] [facility] [place] [address] Mary Morales MD [address] [facility] [place] [address] Left knee cortisone injection Orthopaedics Comment on above: Left knee cortisone injection Start: 02-16-2025 Medicare Annual Wellness Visit Medicare Annual Wellness Visit (AWV) [facility] Start: 02-16-2025 End: 02-16-2025 Patient encounter procedure 02/16/2025 9:00 AM EDT [facility] [address] [place] [address] [facility] Start: 02-15-2025 Adult BMI Screening Adult BMI Screening [facility] Start: 02-15-2025 Depression Screening Depression Screening [facility] Start: 02-15-2025 Fall Risk Screening Fall Risk Screening [facility] Start: 02-15-2025 Medicare Annual Wellness Visit Medicare Annual Wellness Visit [facility] Start: 02-10-2025 End: 02-10-2025 Patient encounter procedure 02/10/2025 10:15 AM EDT Office Visit Otolaryngology [address] [place] [address] Sudhir Wooten MD [address] [place] [address] : Return for rhinology 10-30 days - nasal bleeding. Otolaryngology Comment on above: : Return for rhinology 10-30 days - nasa l bleeding. Start: 02-03-2025 End: 02-03-2025 ambulatory 02/03/2025 8:15 AM EDT Results Only [facility] [address] [place] [address] [facility] Start: 02-02-2025 End: 05-04-2025 25-hydroxyvitamin D3 [Mass/volume] in Serum or Plasma VITAMIN D 25 HYDROXY Lab Routine Charcot arthropathy Disorder of bone, unspecified Expected: 02/02/2025, Expires: 05/04/2025 [facility] Work Phone: Comment on above: Expected: 02/02/2025, Expires: Start: 02-01-2025 End: 02-01-[address] [facility] Rad[facility] CT Scan Comment on above: Closed fracture of left foot, initial en counter [S92.902A CT results Start: 01-30-2025 End: 01-30-2025 ambulatory 01/30/2025 5:00 PM EDT Evaluation [facility] [address] [place] [phone] Kimmy Cerda, PT [facility] Start: 01-26-2025 End: 01-26-2025 ambulatory 01/26/2025 9:00 AM EDT Infusion Center Infusion [address] [place] [address] CHERYL M32.9 MEDICARE A/B DR LANEY ALICEA STAFFING, X 8 weeks Infusion Comment on above: CHERYL M32.9 MEDICARE A/B DR LANEY ALICEA STAFFING, X 8 weeks Start: 01-25-2025 End: 01-25-2025 Patient encounter procedure Otolaryngology Comment on above: Return for 01/25/2025 at 8:50 nose follow up. Closed fracture of l eft foot, initial encounter [S92.902A] Start: 01-23-2025 End: 01-23-2025 Patient encounter procedure 01/23/2025 10:00 AM EDT Office Visit Orthopaedics [address] [place] [address] [place] [address] [place] [address] RIGHT NAVICULAR FRACTURE Orthopaedics Comment on above: RIGHT NAVICULAR FRACTURE Start: 01-19-2025 End: 01-19-2025 Patient encounter procedure Podiatry Comment on above: RT FOOT F/U right foot pain Start: 01-18-2025 End: 01-18-2025 Patient encounter procedure 01/18/2025 8:50 AM EDT Office Visit Otolaryngology [address] [facility] [address] [place], [place] [phone] Curtis Ogden, ANTONIO.RESPIRATORY CLINICIAN [address] [place] [address] nosebleeds Otolaryngology Comment on above: nosebleeds Start: 01-03-2025 Creatinine measurement Creatinine Level [facility] Start: 01-03-2025 Potassium measurement Potassium Level [facility] Start: 12-29-2024 End: 12-29-2024 Patient encounter procedure 12/29/2024 9:15 AM EDT Office Visit [facility] [address] [place] [address] Wojciech Treviño, DO [address], [facility] [address] [facility] Start: 12-22-2024 End: 12-22-2024 Patient encounter procedure 12/22/2024 8:30 AM EDT Office Visit Pulmonary Medicine [address] [place] [phone] [place] [address] [place] [address] SOB Pulmonary Medicine Comment on above: SOB Start: 12-21-2024 End: 12-21-2024 Patient encounter procedure Radiology Comment on above: foot pain Right foot pain/swel ling Start: 12-09-2024 DIABETES SCREEN DIABETES SCREEN [facility] Start: 12-07-2024 End: 12-07-2025 Aspartate aminotransferase [Enzymatic activity/volume] in Serum or Plasma by With P-5'-P Aspartate Aminotransferase Lab Routine Paroxysmal atrial fibrillation (Multi) High risk medication use Expected: 12/07/2024 (Approximate), Expires: 12/07/2025 [facility] Service Area Work Phone: Comment on above: Expected: 12/07/2024 (Approximate), Expi res: 12/07/2025 Start: 12-07-2024 End: 12-07-2025 Basic metabolic 2000 panel - Serum or Plasma Basic Metabolic Panel Lab Routine Paroxysmal atrial fibrillation (Multi) High risk medication use Expected: 12/07/2024 (Approximate), Expires: 12/07/2025 [facility] Work Phone: Comment on above: Expected: 12/07/2024 (Approximate), Expi res: 12/07/2025 Start: 12-07-2024 End: 12-07-2025 Complete Pulmonary Function Test (Spirometry/DLCO/Lung Volumes) Complete Pulmonary Function Test (Spirometry/DLCO/Lung Volumes) PFT Routine Paroxysmal atrial fibrillation (Multi) High risk medication use Expected: 12/07/2024 (Approximate), Expires: 12/07/2025 [facility] Work Phone: Comment on above: Expected: 12/07/2024 (Approximate), Expi res: 12/07/2025 Start: 12-07-2024 End: 12-07-2025 Thyrotropin [Units/volume] in Serum or Plasma Thyroid Stimulating Hormone Lab Routine Paroxysmal atrial fibrillation (Multi) High risk medication use Expected: 12/07/2024 (Approximate), Expires: 12/07/2025 [facility] Work Phone: Comment on above: Expected: 12/07/2024 (Approximate), Expi res: 12/07/2025 Start: 12-07-2024 End: 12-07-2025 XR Chest 2 Views XR chest 2 views Imaging Routine Paroxysmal atrial fibrillation (Multi) High risk medication use Expected: 12/07/2024 (Approximate), Expires: 12/07/2025 [facility] Work Phone: Comment on above: Expected: 12/07/2024 (Approximate), Expi res: 12/07/2025 Start: 12-07-2024 End: 12-07-2024 Patient encounter procedure 12/07/2024 10:40 AM EDT Office Visit [facility] [address] [place] [phone] Yuriy Conway [facility] [address] [facility] [place] [address] [facility] Start: 12-01-2024 End: 12-01-2024 ambulatory 12/01/2024 9:00 AM EDT Infusion Center Infusion [address] [place] [address] BENLYSTA M32.9 MEDICARE A/B DR LANEY ALICEA STAFFING, X 8 weeks Infusion Comment on above: BENLYSDENIS M32.9 MEDICARE A/B DR LANEY ALICEA STAFFING, X 8 weeks Start: 11-16-2024 End: 02-15-2025 DNA ANTIBODY DS BLD [facility] Work Phone: Comment on above: Expected: 11/16/2024, Expires: Start: 11-16-2024 End: 11-16-2024 Patient encounter procedure 11/16/2024 9:00 AM EDT Office Visit Rheumatology [address] [address] Nadege Murphy DO [address] [place], [place] [phone] SLE 6 Month Follow Up Rheumatology Comment on above: SLE 6 Month Follow Up Start: 11-15-2024 End: 02-14-2025 CBC W Auto Differential panel - Blood COMPLETE BLOOD COUNT AND DIFFERENTIAL Lab Routine Lupus nephritis, ISN/RPS class V ([facility]) Expected: 11/15/2024, Expires: 02/14/2025 [facility] Comment on above: Expected: 11/15/2024, Expires: Start: 11-15-2024 End: 02-14-2025 Comprehensive metabolic 2000 panel - Serum or Plasma COMPREHENSIVE METABOLIC PANEL Lab Routine Lupus nephritis, ISN/RPS class V (HCC) Expected: 11/15/2024, Expires: 02/14/2025 [facility] Work Phone: Comment on above: Expected: 11/15/2024, Expires: Start: 11-15-2024 End: 02-14-2025 Protein/Creatinine [Mass Ratio] in Urine PROTEIN / CREATININE RATIO Lab Routine Lupus nephritis, ISN/RPS class V (HCC) Expected: 11/15/2024, Expires: 02/14/2025 [facility] Comment on above: Expected: 11/15/2024, Expires: Start: 11-15-2024 End: 02-14-2025 Urinalysis complete panel - Urine URINALYSIS (WITH MICROSCOPIC) WITH CULTURE IF INDICATED Lab Routine Lupus nephritis, ISN/RPS class V (HCC) Expected: 11/15/2024, Expires: 02/14/2025 [facility] Comment on above: Expected: 11/15/2024, Expires: Start: 11-15-2024 End: 11-15-2024 Patient encounter procedure 11/15/2024 9:20 AM EDT Office Visit Kidney Medicine [address] [place], [place] [phone] Radu Salazar MD [address] [place], [place] [id number] Follow up Kidney Medicine Comment on above: Follow up Start: 10-13-2024 BP Controlled (<130/80) BP Controlled (<130/80) [facility] Start: 10-06-2024 End: 10-06-2024 ambulatory 10/06/2024 9:00 AM EST Infusion Center Infusion [address] [place] [address] BENLYSTA M32.9 MEDICARE A/B DR LANEY ALICEA STAFFING, X 8 weeks Infusion Comment on above: CHERYL M32.9 MEDICARE A/B DR LANEY ALICEA STAFFING, X 8 weeks Start: 09-30-2024 End: 09-30-2024 Patient encounter procedure 09/30/2024 9:45 AM EST Office Visit Gastroenterology [address] [facility] [place] [place] [address] Dione Frances MD [address] [place], [place] [phone] per 12/22/23 ov, 4 month fu ov & [facility] R/S From 05/03 Gastroenterology Comment on above: per 12/22/23 ov, 4 month fu ov & [facility] R/S F rom 05/03 Start: 09-20-2024 End: 09-20-2024 ambulatory 09/20/2024 1:00 PM EST [facility] [address] [address] Julia Ann PA-C [address] [address] Osteopenia f/u [facility] Comment on above: Osteopenia f/u Start: 09-19-2024 [facility] Start: 09-12-2024 End: 09-12-2024 Patient encounter procedure 09/12/2024 9:45 AM EST Appointment [facility] [address] [address] [facility] Start: 09-05-2024 End: 08-05-2026 US Heart Transthoracic Transthoracic Echo Complete Echocardiography Routine Chronic diastolic heart failure (Multi) Shortness of breath Expected: 09/05/2024 (Approximate), Expires: 08/05/2026 [facility] Work Phone: Comment on above: Expected: 09/05/2024 (Approximate), Expi res: 08/05/2026 Start: 09-01-2024 Adult BMI Screening Adult BMI Screening [facility] Start: 09-01-2024 Depression Screening Depression Screening [facility] Start: 09-01-2024 Tobacco Screening Tobacco Screening [facility] Start: 08-23-2024 End: 08-23-2024 Patient encounter procedure 08/23/2024 9:15 AM EST Office Visit Orthopaedics [address] [place] [address] Mary Morales MD [address] [facility] [place] [address] Follow up Left knee Orthopaedics Comment on above: Follow up Left knee Start: 08-17-2024 Advance Directive Discussion Advance Directive Discussion [facility] Start: 08-11-2024 End: 08-11-2024 ambulatory 08/11/2024 9:30 AM EST Infusion Center Infusion [address] [place] [address] CHERYL M32.9 MEDICARE A/B DR LANEY ALICEA STAFFING, X 8 weeks Infusion Comment on above: CHERYL M32.Woody MEDICARE A/B DR LANEY ALICEA STAFFING, X 8 weeks Start: 08-09-2024 End: 08-09-2024 Patient encounter procedure 08/09/2024 10:00 AM EST Appointment [address] [place] [address] [facility] Start: 08-08-2024 End: 08-08-2024 Patient encounter procedure 08/08/2024 10:45 AM EST Appointment [address] [place] [address] [facility] Start: 08-05-2024 End: 08-05-2024 Patient encounter procedure 08/05/2024 3:00 PM EST Office Visit [facility] [address] [place] [id number] Yuriy Conway MD [address] [facility] [address] [place] [address] [facility] Start: 08-05-2024 End: 08-05-2025 Complete Pulmonary Function Test (Spirometry/DLCO/Lung Volumes) Complete Pulmonary Function Test (Spirometry/DLCO/Lung Volumes) PFT Routine Paroxysmal atrial fibrillation (Multi) High risk medication use Expected: 08/05/2024 (Approximate), Expires: 08/05/2025 [facility] Work Phone: Comment on above: Expected: 08/05/2024 (Approximate), Expi res: 08/05/2025 Start: 08-05-2024 End: 08-05-2025 XR Chest 2 Views XR chest 2 views Imaging Routine Paroxysmal atrial fibrillation (Multi) High risk medication use Expected: 08/05/2024, Expires: 08/05/2025 [facility] Service Area Work Phone: Comment on above: Expected: 08/05/2024, Expires: Start: 07-27-2024 Tobacco Screening Tobacco Screening [facility] Start: 07-21-2024 End: 07-21-2024 Patient encounter procedure 07/21/2024 9:00 AM EST Office Visit [facility] Internal Medicine - Family Medicine [address] [place] [address] Wojciech Treviño DO [address], [facility] [place] [address] [facility] Start: 07-19-2024 End: 10-18-2024 Renal function 2000 panel - Serum or Plasma RENAL FUNCTION PANEL Lab Routine Paroxysmal atrial fibrillation (HCC) Epistaxis Preoperative examination, unspecified Expected: 07/19/2024, Expires: 10/18/2024 [facility] Work Phone: Comment on above: Expected: 07/19/2024, Expires: Start: 07-11-2024 End: 07-11-2024 Patient encounter procedure 07/11/2024 2:00 PM EST Office Visit Rheumatology [address] [address] Nadege Murphy DO [address], [address] [place] [address] per patient request Rheumatology Comment on above: per patient request Start: 07-08-2024 End: 07-08-2024 Patient encounter procedure 07/08/2024 9:45 AM EST Office Visit Gastroenterology [address] [place] [address] Dione Frances MD [address] [facility] [place] [address] per 12/22/23 ov, 4 month fu ov & CCF R/S From 05/03 Gastroenterology Comment on above: per 12/22/23 ov, 4 month fu ov & CCF R/S F rom 05/03 Start: 06-30-2024 End: 06-30-2024 Patient encounter procedure 06/30/2024 9:00 AM EST Office Visit [facility] [address] [place] [address] Wojciech Treviño, DO [address], [place] [address] [facility] Start: 06-14-2024 End: 06-14-2024 ambulatory 06/14/2024 9:30 AM EDT Infusion Center Infusion [address] [place] [address] BENLYSTA M32.9 MEDICARE A/B DR LANEY ALICEA STAFFING, x 8 weeks Infusion Comment on above: BENLYSDENIS M32.9 MEDICARE A/B DR LANEY ALICEA STAFFING, x 8 weeks Start: 06-10-2024 End: 06-10-2024 Patient encounter procedure 06/10/2024 2:20 PM EDT Office Visit [facility] [address] [facility] [address] [place] [address] Yuriy Conway MD [address] [facility] [address] [place] [address] [facility] Start: 06-10-2024 End: 06-10-2024 Patient encounter procedure 06/10/2024 9:45 AM EDT Office Visit Gastroenterology [address] [place] [address] Dione Frances MD [address] [facility] [address] [place], [place] [id number] per 12/22/23 ov, 4 month fu ov & CCF R/S From 05/03 Gastroenterology Comment on above: per 12/22/23 ov, 4 month fu ov & CCF R/S F rom 05/03 Start: 05-27-2024 End: 08-26-2024 Comprehensive metabolic 2000 panel - Serum or Plasma COMPREHENSIVE METABOLIC PANEL Lab Routine Systemic lupus erythematosus, unspecified SLE type, unspecified organ involvement status (HCC) Expected: 05/27/2024, Expires: 08/26/2024 [facility] Work Phone: Comment on above: Expected: 05/27/2024, Expires: Start: 05-20-2024 End: 05-20-2024 ambulatory 05/20/2024 9:30 AM EDT Treatment [facility] [address] [place] [address] Patrick Argueta PTA [facility] Start: 05-20-2024 End: 05-20-2024 Patient encounter procedure Orthopaedics Comment on above: Left knee left knee sunrise vi ew Start: 05-19-2024 End: 05-19-2024 Patient encounter procedure 05/19/2024 3:45 PM EDT Office Visit [facility] [address] [place] [address] Wojciech Treviño, DO [address], [place] [address] [facility] Start: 05-18-2024 End: 05-18-2024 ambulatory 05/18/2024 2:30 PM EDT Treatment [facility] [address] [place] [address] Patrick Argueta PTA [facility] Start: 05-18-2024 End: 05-18-2024 Patient encounter procedure 05/18/2024 2:30 PM EDT Office Visit Rheumatology [address] [address] Nadege Murphy, [address], [address] [place] [address] per patient request Rheumatology Comment on above: per patient request Start: 05-18-2024 End: 08-17-2024 CBC W Auto Differential panel - Blood COMPLETE BLOOD COUNT AND DIFFERENTIAL Lab Routine Systemic lupus erythematosus, unspecified SLE type, unspecified organ involvement status (HCC) Expected: 05/18/2024, Expires: 08/17/2024 [facility] Comment on above: Expected: 05/18/2024, Expires: Start: 05-18-2024 End: 08-17-2024 Comprehensive metabolic 2000 panel - Serum or Plasma COMPREHENSIVE METABOLIC PANEL Lab Routine Systemic lupus erythematosus, unspecified SLE type, unspecified organ involvement status (HCC) Expected: 05/18/2024, Expires: 08/17/2024 [facility] Comment on above: Expected: 05/18/2024, Expires: Start: 05-18-2024 End: 08-17-2024 Creatine kinase [Enzymatic activity/volume] in Serum or Plasma CREATINE KINASE/CK Lab Routine Systemic lupus erythematosus, unspecified SLE type, unspecified organ involvement status (HCC) Expected: 05/18/2024, Expires: 08/17/2024 [facility] Work Phone: Comment on above: Expected: 05/18/2024, Expires: Start: 05-18-2024 End: 08-17-2024 Protein/Creatinine [Mass Ratio] in Urine PROTEIN / CREATININE RATIO Lab Routine Systemic lupus erythematosus, unspecified SLE type, unspecified organ involvement status (HCC) Expected: 05/18/2024, Expires: 08/17/2024 [facility] Comment on above: Expected: 05/18/2024, Expires: Start: 05-18-2024 End: 08-17-2024 Urinalysis complete panel - Urine URINALYSIS, WITH MICROSCOPIC Lab Routine Systemic lupus erythematosus, unspecified SLE type, unspecified organ involvement status (HCC) Expected: 05/18/2024, Expires: 08/17/2024 [facility] Comment on above: Expected: 05/18/2024, Expires: 5 Start: 05-16-2024 DIABETES SCREEN DIABETES SCREEN [facility] Start: 05-12-2024 End: 05-12-2024 ambulatory [facility] Comment on above: Arrived Start: 05-03-2024 End: 05-03-2024 Patient encounter procedure 05/03/2024 9:40 AM EDT Office Visit Gastroenterology [address] [place] [address] Dione Frances MD [address] [address] per 12/22/23 ov, 4 month fu ov Gastroenterology Comment on above: per 12/22/23 ov, 4 month fu ov Start: 05-02-2024 End: 05-02-2024 Patient encounter procedure 05/02/2024 2:20 PM EDT Office Visit [facility] [address] [facility] [address] [place] [address] Yuriy Conway MD 703 [facility], [address] [place] [address] [facility] Start: 04-19-2024 End: 04-19-2024 ambulatory 04/19/2024 10:00 AM EDT Infusion Center Infusion [address] [place] [address] BENLYSDENIS M32.9 MEDICARE A/B DR LANEY ALICEA STAFFING, x 8 weeks Infusion Comment on above: BENLYSDENIS M32.9 MEDICARE A/B DR LANEY ALICEA STAFFING, x 8 weeks Start: 04-17-2024 Covid-19 Vaccine ( season) Covid-19 Vaccine () [facility] Start: 04-17-2024 Covid-19 Vaccine ( season) Covid-19 Vaccine ( season) [facility] Start: 04-17-2024 Influenza vaccination [facility] Start: 04-15-2024 Adult BMI Screening Adult BMI Screening [facility] Start: 04-15-2024 Depression Screening Depression Screening [facility] Start: 04-15-2024 Fall Risk Screening Fall Risk Screening [facility] Start: 04-02-2024 Colonoscopy COLONOSCOPY [facility] Start: 04-02-2024 COLORECTAL CANCER SCREENING COLORECTAL CANCER SCREENING [facility] Start: 04-02-2024 Screening for malignant neoplasm of colon [facility] Start: 04-01-2024 Mammography [facility] Start: 04-01-2024 Screening for malignant neoplasm of breast [facility] Start: 03-30-2024 End: 03-30-2025 DBT Breast - bilateral screening Mammography screening bilateral with CAD Imaging Routine Encounter for screening mammogram for malignant neoplasm of breast Expected: 03/30/2024, Expires: 03/30/2025 [facility] Comment on above: Expected: 03/30/2024, Expires: Start: 03-30-2024 End: 03-30-2025 US.doppler Upper extremity vein - left Vas venous duplex upr single left Vascular Ultrasound Routine Varicose veins of left upper extremity Localized swelling, mass and lump, head Expected: 03/30/2024, Expires: 03/30/2025 [facility] Work Phone: Comment on above: Expected: 03/30/2024, Expires: 5 Start: 03-30-2024 End: 03-30-2024 Patient encounter procedure 03/30/2024 10:00 AM EDT Office Visit 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] no full UB Start: 03-18-2024 End: 03-18-2024 ambulatory 03/18/2024 9:30 AM EDT Results Only [facility] [address] [place] [address] [facility] Start: 03-17-2024 End: 06-16-2024 C reactive protein [Mass/volume] in Serum or Plasma C-REACTIVE PROTEIN Lab Routine Systemic lupus erythematosus, unspecified SLE type, unspecified organ involvement status (HCC) Expected: 03/17/2024, Expires: 06/16/2024 [facility] Work Phone: Comment on above: Expected: 03/17/2024, Expires: Start: 03-17-2024 End: 06-16-2024 Complement C3 [Mass/volume] in Serum or Plasma C3 COMPLEMENT Lab Routine Systemic lupus erythematosus, unspecified SLE type, unspecified organ involvement status (HCC) Expected: 03/17/2024, Expires: 06/16/2024 [facility] Comment on above: Expected: 03/17/2024, Expires: Start: 03-17-2024 End: 06-16-2024 Complement C4 [Mass/volume] in Serum or Plasma C4 COMPLEMENT Lab Routine Systemic lupus erythematosus, unspecified SLE type, unspecified organ involvement status (HCC) Expected: 03/17/2024, Expires: 06/16/2024 [facility] Comment on above: Expected: 03/17/2024, Expires: Start: 03-17-2024 End: 06-16-2024 Creatine kinase [Enzymatic activity/volume] in Serum or Plasma CREATINE KINASE/CK Lab Routine Systemic lupus erythematosus, unspecified SLE type, unspecified organ involvement status (HCC) Expected: 03/17/2024, Expires: 06/16/2024 [facility] Comment on above: Expected: 03/17/2024, Expires: Start: 03-17-2024 End: 06-16-2024 DNA ANTIBODY DS BLD DNA ANTIBODY DS BLD Lab Routine Systemic lupus erythematosus, unspecified SLE type, unspecified organ involvement status (HCC) Expected: 03/17/2024, Expires: 06/16/2024 [facility] Comment on above: Expected: 03/17/2024, Expires: Start: 03-17-2024 End: 06-16-2024 Erythrocyte sedimentation rate SEDIMENTATION RATE, WESTERGREN Lab Routine Systemic lupus erythematosus, unspecified SLE type, unspecified organ involvement status (HCC) Expected: 03/17/2024, Expires: 06/16/2024 [facility] Comment on above: Expected: 03/17/2024, Expires: Start: 03-17-2024 End: 03-17-2024 ambulatory 03/17/2024 9:30 AM EDT Infusion Center Infusion [address] [place] [address] BENLYSTA M32.9 MEDICARE A/B DR LANEY ALICEA STAFFING, Q3M Infusion Comment on above: BENLYSTA M32.9 MEDICARE A/B DR LANEY ALICEA STAFFING, Q3M Start: 03-15-2024 End: 03-15-2024 ambulatory 03/15/2024 1:40 PM EDT Procedure [facility] [address] [id number] [facility] Comment on above: dxa Start: 03-15-2024 End: 03-15-2024 Patient encounter procedure Bone Center Comment on above: osteoporosis 5m fu per marissa dxa Start: 02-29-2024 End: 02-29-2024 Patient encounter procedure 02/29/2024 1:00 PM EDT Office Visit [facility] [address] [facility] [address] [place] [address] Yuriy Conway MD 703 [facility] 2, [address] [place], [place] [id number] [facility] Start: 02-23-2024 End: 02-23-2024 ambulatory 02/23/2024 9:30 AM EDT Infusion Center Infusion [address] [place] [address] CHERYL M32.9 MEDICARE A/B DR LANEY ALCIEA STAFFING, Q3M Infusion Comment on above: CHERYL M32.9 MEDICARE A/B DR LANEY ALICEA STAFFING, Q3M Start: 02-16-2024 End: 02-16-2024 Patient encounter procedure 02/16/2024 9:00 AM EDT Office Visit [facility] Physicians Internal Medicine - Family Medicine [address] [place] [address] [facility] Internal Medicine - Family Medicine Start: 02-12-2024 End: 02-12-2024 Patient encounter procedure 02/12/2024 8:30 AM EDT Appointment Radiology [address] [place] [address] US KIDNEY Radiology Comment on above: US KIDNEY Start: 02-05-2024 BP CONTROLLED (<130/80) BP CONTROLLED (<130/80) [facility] Start: 01-28-2024 Medicare Annual Wellness Visit Medicare Annual Wellness Visit [facility] Start: 12-29-2023 End: 12-29-2023 Patient encounter procedure 12/29/2023 9:40 AM EDT Office Visit Kidney Medicine [address] [place] [address] Radu Salazar MD [address] [place] [address] Kidney Function - Lupus Kidney Medicine Comment on above: Kidney Function - Lupus Start: 12-25-2023 End: 03-25-2024 CBC W Auto Differential panel - Blood COMPLETE BLOOD COUNT AND DIFFERENTIAL Lab Routine Systemic lupus erythematosus, unspecified SLE type, unspecified organ involvement status ([facility]) Expected: 12/25/2023, Expires: 03/25/2024 [facility] Comment on above: Expected: 12/25/2023, Expires: Start: 12-25-2023 End: 03-25-2024 Complement C3 [Mass/volume] in Serum or Plasma C3 COMPLEMENT Lab Routine Systemic lupus erythematosus, unspecified SLE type, unspecified organ involvement status (HCC) Expected: 12/25/2023, Expires: 03/25/2024 [facility] Work Phone: Comment on above: Expected: 12/25/2023, Expires: Start: 12-25-2023 End: 03-25-2024 Complement C4 [Mass/volume] in Serum or Plasma C4 COMPLEMENT Lab Routine Systemic lupus erythematosus, unspecified SLE type, unspecified organ involvement status (HCC) Expected: 12/25/2023, Expires: 03/25/2024 [facility] Comment on above: Expected: 12/25/2023, Expires: Start: 12-25-2023 End: 03-25-2024 Comprehensive metabolic 2000 panel - Serum or Plasma COMPREHENSIVE METABOLIC PANEL Lab Routine Systemic lupus erythematosus, unspecified SLE type, unspecified organ involvement status (HCC) Expected: 12/25/2023, Expires: 03/25/2024 [facility] Comment on above: Expected: 12/25/2023, Expires: Start: 12-25-2023 End: 03-25-2024 DNA ANTIBODY DS BLD DNA ANTIBODY DS BLD Lab Routine Systemic lupus erythematosus, unspecified SLE type, unspecified organ involvement status (HCC) Expected: 12/25/2023, Expires: 03/25/2024 [facility] Comment on above: Expected: 12/25/2023, Expires: Start: 12-25-2023 End: 03-25-2024 Protein/Creatinine [Mass Ratio] in Urine PROTEIN / CREATININE RATIO Lab Routine Systemic lupus erythematosus, unspecified SLE type, unspecified organ involvement status (HCC) Expected: 12/25/2023, Expires: 03/25/2024 [facility] Comment on above: Expected: 12/25/2023, Expires: Start: 12-25-2023 End: 03-25-2024 Urinalysis complete panel - Urine URINALYSIS, WITH MICROSCOPIC Lab Routine Systemic lupus erythematosus, unspecified SLE type, unspecified organ involvement status (HCC) Expected: 12/25/2023, Expires: 03/25/2024 [facility] Comment on above: Expected: 12/25/2023, Expires: Start: 12-25-2023 End: 12-25-2023 Follow-up encounter 12/25/2023 10:00 AM EDT [facility] Rheumatology [address] [address] Nadege Murphy, [address], [address] [place], [place] [phone] FOLLOW UP - LUPUS Rheumatology Comment on above: FOLLOW UP - LUPUS Start: 12-24-2023 End: 12-24-2023 ambulatory 12/24/2023 9:30 AM EDT Infusion Center Infusion [address] [place] [address] BENLYSTA M32.9 MEDICARE A/B DR LANEY ALICEA STAFFING, Q3M Infusion Comment on above: BENLYSDENIS M32.9 MEDICARE A/B DR LANEY ALICEA STAFFING, Q3M Start: 12-23-2023 End: 12-23-2023 Patient encounter procedure 12/23/2023 11:30 AM EDT Office Visit Rheumatology [address] [address] Nadege Murphy DO [address], [address] [place] [address] 6m SLE fu per radames Rheumatology Comment on above: 6m SLE fu per radames Start: 12-22-2023 End: 12-22-2023 Patient encounter procedure 12/22/2023 11:00 AM EDT Office Visit Gastroenterology [address] [place] [address] Dione Frances MD [address] [place] [address] 6 month Follow Up Gastroenterology Comment on above: 6 month Follow Up Start: 11-26-2023 [facility] Start: 11-16-2023 End: 11-16-2023 Patient encounter procedure 11/16/2023 3:30 PM EDT Office Visit [facility] [address] [place] [address] [place] [address] [place], [place] [phone] [facility] Start: 11-05-2023 End: 10-28-2024 ECG 12 Lead ECG 12 Lead ECG Routine Paroxysmal atrial fibrillation (CMS/HCC) Expected: 11/05/2023 (Approximate), Expires: 10/28/2024 [facility] Service Area Work Phone: Comment on above: Expected: 11/05/2023 (Approximate), Expi res: 10/28/2024 Start: 09-17-2023 End: 09-17-2025 Cardioversion External Cardioversion External Cardiac Services Routine Paroxysmal atrial fibrillation (CMS/HCC) Expected: 09/17/2023 (Approximate), Expires: 09/17/2025 [facility] Service Area Work Phone: Comment on above: Expected: 09/17/2023 (Approximate), Expi res: 09/17/2025 Start: 09-17-2023 Echocardiography Echocardiogram [facility] Start: 08-17-2023 Advance Directive Discussion Advance Directive Discussion [facility] Start: 08-17-2023 Behavioral Health Screening Behavioral Health Screening [facility] Start: 08-17-2023 Depression Assessment Depression Assessment [facility] Start: 07-21-2023 FUV, Provider: Yruiy Conway, Status: Pen, Time: 10:20 AM FUV, Provider: Yuriy Conway, Status: Mati, Time: 10:20 AM [facility] 250 DO Work Phone: Start: 07-07-2023 BP CONTROLLED (<130/80) BP CONTROLLED (<130/80) [facility] Start: 06-11-2023 BP CONTROLLED (<130/80) BP CONTROLLED (<130/80) [facility] Start: 04-18-2023 BP CONTROLLED (<130/80) BP CONTROLLED (<130/80) [facility] Start: 04-17-2023 Covid-19 Vaccine ( season) Covid-19 Vaccine ( season) [facility] Start: 04-17-2023 Influenza vaccination [facility] Start: 04-17-2023 End: 06-17-2023 Lipid 1996 panel - Serum or Plasma LIPID PANEL BASIC Lab Routine Mixed hyperlipidemia Hypomagnesemia Expected: 04/17/2023, Expires: 06/17/2023 [facility] Work Phone: Comment on above: Expected: 04/17/2023, Expires: 3 Start: 04-17-2023 End: 06-17-2023 Magnesium [Mass/volume] in Serum or Plasma MAGNESIUM BLD Lab Routine Mixed hyperlipidemia Hypomagnesemia Expected: 04/17/2023, Expires: 06/17/2023 [facility] Work Phone: Comment on above: Expected: 04/17/2023, Expires: 3 Start: 04-10-2023 End: 06-10-2023 CBC W Auto Differential panel - Blood CBC + DIFF Lab Routine Systemic lupus erythematosus, unspecified SLE type, unspecified organ involvement status (HCC) Expected: 04/10/2023, Expires: 06/10/2023 [facility] Work Phone: Comment on above: Expected: 04/10/2023, Expires: 3 Start: 04-10-2023 End: 06-10-2023 Complement C3 [Mass/volume] in Serum or Plasma C3 COMPLEMENT BLD Lab Routine Systemic lupus erythematosus, unspecified SLE type, unspecified organ involvement status (HCC) Expected: 04/10/2023, Expires: 06/10/2023 [facility] Work Phone: Comment on above: Expected: 04/10/2023, Expires: 3 Start: 04-10-2023 End: 06-10-2023 Complement C4 [Mass/volume] in Serum or Plasma C4 COMPLEMENT BLD Lab Routine Systemic lupus erythematosus, unspecified SLE type, unspecified organ involvement status (HCC) Expected: 04/10/2023, Expires: 06/10/2023 [facility] Work Phone: Comment on above: Expected: 04/10/2023, Expires: 3 Start: 04-10-2023 End: 06-10-2023 Comprehensive metabolic 2000 panel - Serum or Plasma COMP METABOLIC PANEL Lab Routine Systemic lupus erythematosus, unspecified SLE type, unspecified organ involvement status (HCC) Expected: 04/10/2023, Expires: 06/10/2023 [facility] Work Phone: Comment on above: Expected: 04/10/2023, Expires: 3 Start: 04-10-2023 End: 06-10-2023 DNA ANTIBODY DS BLD DNA ANTIBODY DS BLD Lab Routine Systemic lupus erythematosus, unspecified SLE type, unspecified organ involvement status (HCC) Expected: 04/10/2023, Expires: 06/10/2023 [facility] Work Phone: Comment on above: Expected: 04/10/2023, Expires: 3 Start: 04-10-2023 End: 06-10-2023 Protein/Creatinine [Mass Ratio] in Urine PROTEIN CREATININE RATIO Lab Routine Systemic lupus erythematosus, unspecified SLE type, unspecified organ involvement status (HCC) Expected: 04/10/2023, Expires: 06/10/2023 [facility] Work Phone: Comment on above: Expected: 04/10/2023, Expires: 3 Start: 04-10-2023 End: 06-10-2023 Urinalysis complete panel - Urine URINALYSIS, WITH MICROSCOPIC Lab Routine Systemic lupus erythematosus, unspecified SLE type, unspecified organ involvement status (HCC) Expected: 04/10/2023, Expires: 06/10/2023 [facility] Work Phone: Comment on above: Expected: 04/10/2023, Expires: 3 Start: 03-13-2023 BP CONTROLLED (<130/80) BP CONTROLLED (<130/80) [facility] Start: 02-21-2023 End: 03-23-2023 25-hydroxyvitamin D3 [Mass/volume] in Serum or Plasma VITAMIN D 25 HYDROXY Lab Routine Hyperparathyroidism (HCC) Expected: 02/21/2023, Expires: 03/23/2023 [facility] Work Phone: Comment on above: Expected: 02/21/2023, Expires: 3 Start: 02-21-2023 End: 03-23-2023 Calcium [Mass/volume] in Serum or Plasma CALCIUM TOTAL BLD Lab Routine Hyperparathyroidism (HCC) Expected: 02/21/2023, Expires: 03/23/2023 [facility] Work Phone: Comment on above: Expected: 02/21/2023, Expires: 3 Start: 02-21-2023 End: 03-23-2023 Parathyrin.intact [Mass/volume] in Serum or Plasma PTH INTACT BLD Lab Routine Hyperparathyroidism (HCC) Expected: 02/21/2023, Expires: 03/23/2023 [facility] Work Phone: Comment on above: Expected: 02/21/2023, Expires: 3 Start: 02-04-2023 End: 04-06-2023 PARVEZ BY IFA WITH REFLEX [facility] Work Phone: Comment on above: Expected: 02/04/2023, Expires: 3 Start: 02-04-2023 End: 04-06-2023 Cyclic citrullinated peptide IgG Ab [Units/volume] in Serum or Plasma [facility] Work Phone: Comment on above: Expected: 02/04/2023, Expires: 3 Start: 02-04-2023 End: 04-06-2023 DNA ANTIBODY DS BLD [facility] Work Phone: Comment on above: Expected: 02/04/2023, Expires: 3 Start: 01-01-2023 BP CONTROLLED (<130/80) BP CONTROLLED (<130/80) [facility] Start: 12-19-2022 End: 2023 Calprotectin [Mass/mass] in Stool CALPROTECTIN,FECAL Lab Routine Diarrhea, unspecified type Expected: 12/19/2022 (Approximate), Expires: 2023 [facility] Work Phone: Comment on above: Expected: 12/19/2022 (Approximate), Expi res: 2023 Start: 12-19-2022 End: 2023 Clostridioides difficile toxin genes [Presence] in Stool by RAVIN with probe detection C. DIFFICILE PCR Lab Routine Diarrhea, unspecified type Expected: 12/19/2022 (Approximate), Expires: 2023 [facility] Work Phone: Comment on above: Expected: 12/19/2022 (Approximate), Expi res: 2023 Start: 12-19-2022 End: 2023 ENTERIC BACTERIAL PANEL BY PCR ENTERIC BACTERIAL PANEL BY PCR Lab Routine Diarrhea, unspecified type Expected: 12/19/2022 (Approximate), Expires: 2023 [facility] Work Phone: Comment on above: Expected: 12/19/2022 (Approximate), Expi res: 2023 Start: 12-19-2022 End: 2023 Giardia lamblia+Cryptosporidium sp Ag [Presence] in Stool by Immunoassay CRYPTOSPORIDIUM AND GIARDIA ANTIGENS BY EIA Microbiology Routine Diarrhea, unspecified type Expected: 12/19/2022 (Approximate), Expires: 2023 [facility] Work Phone: Comment on above: Expected: 12/19/2022 (Approximate), Expi res: 2023 Start: 12-19-2022 End: 2023 PANC ELASTASE, FECAL PANC ELASTASE, FECAL Lab Routine Diarrhea, unspecified type Expected: 12/19/2022 (Approximate), Expires: 2023 [facility] Work Phone: Comment on above: Expected: 12/19/2022 (Approximate), Expi res: 2023 Start: 11-13-2022 Adult depression screening assessment DEPRESSION SCREENING [facility] Start: 09-22-2022 End: 11-22-2022 Hepatic function 2000 panel - Serum or Plasma HEPATIC FUNCTION PNL Lab Routine Mixed hyperlipidemia Expected: 09/22/2022, Expires: 11/22/2022 [facility] Work Phone: Comment on above: Expected: 09/22/2022, Expires: 3 Start: 09-22-2022 End: 11-22-2022 Lipid 1996 panel - Serum or Plasma LIPID PANEL BASIC Lab Routine Mixed hyperlipidemia Expected: 09/22/2022, Expires: 11/22/2022 [facility] Work Phone: Comment on above: Expected: 09/22/2022, Expires: 3 Start: 09-17-2022 ECHO, Provider: SHERRY TAYLORI ULTRASOUND 01,[id number], Status: Pen, Time: 8:45 AM ECHO, Provider: SHERRY TAYLORI ULTRASOUND 01,[id number], Status: Pen, Time: 8:45 AM -[facility] 250 DO Work Phone: Start: 09-12-2022 Colonoscopy COLONOSCOPY [facility] Start: 09-12-2022 COLORECTAL CANCER SCREENING COLORECTAL CANCER SCREENING [facility] Start: 09-08-2022 End: 11-08-2022 Calcium [Mass/volume] in Serum or Plasma CALCIUM TOTAL BLD Lab Routine Hyperparathyroidism (HCC) Expected: 09/08/2022, Expires: 11/08/2022 [facility] Work Phone: Comment on above: Expected: 09/08/2022, Expires: 3 Start: 09-08-2022 End: 11-08-2022 Parathyrin.intact [Mass/volume] in Serum or Plasma PTH INTACT BLD Lab Routine Hyperparathyroidism (HCC) Expected: 09/08/2022, Expires: 11/08/2022 [facility] Work Phone: Comment on above: Expected: 09/08/2022, Expires: 3 Start: 08-22-2022 REST ONLY, Provider: SHERRY TAYLORI NUCLEAR 01,[id number], Status: Pen, Time: 10:00 AM REST ONLY, Provider: SHERRY HHVI NUCLEAR 01,[id number], Status: Pen, Time: 10:00 AM [facility] 250 DO Work Phone: Start: 08-17-2022 ADVANCE DIRECTIVE DISCUSSION ADVANCE DIRECTIVE DISCUSSION [facility] Start: 08-17-2022 DEPRESSION ASSESSMENT DEPRESSION ASSESSMENT [facility] Start: 08-15-2022 STRESSNUC2, Provider: SHERRY MATA NUCLEAR 01,[id number], Status: Pen, Time: 10:00 AM STRESSNUC2, Provider: SHERRY HHVI NUCLEAR 01,[id number], Status: Pen, Time: 10:00 AM [facility] 250 DO Work Phone: Start: 06-18-2022 End: 08-18-2022 C reactive protein [Mass/volume] in Serum or Plasma C-REACTIVE PROTEIN (CRP) Lab Routine Systemic lupus erythematosus, unspecified SLE type, unspecified organ involvement status (HCC) Expected: 06/18/2022, Expires: 08/18/2022 [facility] Work Phone: Comment on above: Expected: 06/18/2022, Expires: 3 Start: 06-18-2022 End: 08-18-2022 CBC W Auto Differential panel - Blood CBC + DIFF Lab Routine Systemic lupus erythematosus, unspecified SLE type, unspecified organ involvement status (HCC) Expected: 06/18/2022, Expires: 08/18/2022 [facility] Work Phone: Comment on above: Expected: 06/18/2022, Expires: 3 Start: 06-18-2022 End: 08-18-2022 Complement C3 [Mass/volume] in Serum or Plasma C3 COMPLEMENT BLD Lab Routine Systemic lupus erythematosus, unspecified SLE type, unspecified organ involvement status (HCC) Expected: 06/18/2022, Expires: 08/18/2022 [facility] Work Phone: Comment on above: Expected: 06/18/2022, Expires: 3 Start: 06-18-2022 End: 08-18-2022 Complement C4 [Mass/volume] in Serum or Plasma C4 COMPLEMENT BLD Lab Routine Systemic lupus erythematosus, unspecified SLE type, unspecified organ involvement status (HCC) Expected: 06/18/2022, Expires: 08/18/2022 [facility] Work Phone: Comment on above: Expected: 06/18/2022, Expires: 3 Start: 06-18-2022 End: 08-18-2022 Comprehensive metabolic 2000 panel - Serum or Plasma COMP METABOLIC PANEL Lab Routine Systemic lupus erythematosus, unspecified SLE type, unspecified organ involvement status (HCC) Expected: 06/18/2022, Expires: 08/18/2022 [facility] Work Phone: Comment on above: Expected: 06/18/2022, Expires: 3 Start: 06-18-2022 End: 08-18-2022 Erythrocyte sedimentation rate SED RATE WESTERGREN Lab Routine Systemic lupus erythematosus, unspecified SLE type, unspecified organ involvement status (HCC) Expected: 06/18/2022, Expires: 08/18/2022 [facility] Work Phone: Comment on above: Expected: 06/18/2022, Expires: 3 Start: 06-18-2022 End: 08-18-2022 Protein/Creatinine [Mass Ratio] in Urine PROTEIN CREATININE RATIO Lab Routine Systemic lupus erythematosus, unspecified SLE type, unspecified organ involvement status (HCC) Expected: 06/18/2022, Expires: 08/18/2022 [facility] Work Phone: Comment on above: Expected: 06/18/2022, Expires: 3 Start: 06-18-2022 End: 08-18-2022 Urinalysis complete panel - Urine URINALYSIS, WITH MICROSCOPIC Lab Routine Systemic lupus erythematosus, unspecified SLE type, unspecified organ involvement status (HCC) Expected: 06/18/2022, Expires: 08/18/2022 [facility] Work Phone: Comment on above: Expected: 06/18/2022, Expires: 3 Start: 06-11-2022 End: 08-11-2022 Comprehensive metabolic 2000 panel - Serum or Plasma COMP METABOLIC PANEL Lab Routine Hyperparathyroid (HCC) Expected: 06/11/2022, Expires: 08/11/2022 [facility] Work Phone: Comment on above: Expected: 06/11/2022, Expires: 2 Start: 06-11-2022 End: 08-11-2022 Parathyrin.intact [Mass/volume] in Serum or Plasma PTH INTACT BLD Lab Routine Hyperparathyroid (HCC) Expected: 06/11/2022, Expires: 08/11/2022 [facility] Work Phone: Comment on above: Expected: 06/11/2022, Expires: 2 Start: 04-18-2022 End: 06-18-2022 CROSS-LINK N-TELOPEP [facility] Work Phone: Comment on above: Expected: 04/18/2022 (Approximate), Expi res: 06/18/2022 Start: 04-17-2022 Influenza vaccination INFLUENZA (#1) [facility] Start: 03-20-2022 End: 05-20-2022 Calcium [Mass/volume] in Serum or Plasma CALCIUM TOTAL BLD Lab Routine 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) High risk medication use Expected: 03/20/2022, Expires: 05/20/2022 [facility] Work Phone: Comment on above: Expected: 03/20/2022, Expires: 2 Start: 02-07-2022 MRI of head MR head/brain wo con [facility] Start: 02-07-2022 Bacteria identified in Urine by Culture Urine Culture [facility] Start: 12-09-2021 End: 02-08-2022 DNA double strand Ab [Units/volume] in Serum by Immunoassay [facility] Work Phone: Comment on above: Expected: 12/09/2021 (Approximate), Expi res: 02/08/2022 Start: 12-09-2021 End: 02-08-2022 Protein/Creatinine [Mass Ratio] in Urine [facility] Work Phone: Comment on above: Expected: 12/09/2021 (Approximate), Expi res: 02/08/2022 Start: 12-09-2021 End: 02-08-2022 Urinalysis complete panel - Urine [facility] Work Phone: Comment on above: Expected: 12/09/2021 (Approximate), Expi res: 02/08/2022 Start: 09-24-2021 Medicare Annual Wellness Visit Medicare Annual Wellness Visit [facility] Start: 09-17-2021 COVID-19 VACCINE (3 - Booster for Iris series) COVID-19 VACCINE (3 - Booster for Iris series) [facility] Start: 08-17-2021 ADVANCE DIRECTIVE DISCUSSION ADVANCE DIRECTIVE DISCUSSION [facility] Start: 08-17-2021 DEPRESSION ASSESSMENT DEPRESSION ASSESSMENT [facility] Start: 05-27-2021 PNEUMOCOCCAL: 65+ (3 - PPSV23 if available, else PCV20) PNEUMOCOCCAL: 65+ (3 - PPSV23 if available, else PCV20) [facility] Start: 05-27-2021 PNEUMOCOCCAL: 65+ (4 - PPSV23 if available, else PCV20) PNEUMOCOCCAL: 65+ (4 - PPSV23 if available, else PCV20) [facility] Start: 05-27-2021 PNEUMOCOCCAL: 65+ (4 - PPSV23 or PCV20) PNEUMOCOCCAL: 65+ (4 - PPSV23 or PCV20) [facility] Start: 05-27-2021 PNEUMOVAX AGE 65 AND OVER WITH 5YR LOOKBACK (#1) PNEUMOVAX AGE 65 AND OVER WITH 5YR LOOKBACK (#1) [facility] Start: 09-15-2020 Creatinine measurement Creatinine Level [facility] Start: 09-15-2020 Potassium measurement Potassium Level [facility] Start: 09-08-2020 Thyroid stimulating hormone measurement TSH Level [facility] Start: 2016 HEPATITIS B (1 of 3 - Risk 3-dose series) HEPATITIS B (1 of 3 - Risk 3-dose series) [facility] Start: 2016 Hepatitis B Vaccine (1 of 3 - Risk 3-dose series) Hepatitis B Vaccine (1 of 3 - Risk 3-dose series) [facility] Start: 2016 RSV Vaccine (1 - 1-dose 60+ series) RSV Vaccine (1 - 1-dose 60+ series) [facility] Start: 02-17-2001 COLOGUARD (FIT-DNA) COLOGUARD (FIT-DNA) [facility] Start: 02-17-[address] COLONOGRAPHY [facility] Start: 02-17-2001 FECAL OCCULT BLOOD FECAL OCCULT BLOOD [facility] Start: 02-17-2001 Screening for malignant neoplasm of colon [facility] Start: 02-17-2001 SIGMOIDOSCOPY SIGMOIDOSCOPY [facility] Start: 1996 Mammography MAMMOGRAM [facility] Start: 02-17-1978 DTaP/Tdap/Td Vaccines (1 - Tdap) DTaP/Tdap/Td Vaccines (1 - Tdap) [facility] Start: 02-17-1975 DTaP,Tdap and Td Vaccines (1 - Tdap) DTaP,Tdap and Td Vaccines (1 - Tdap) [facility] Start: 02-17-1975 HEPATITIS A (1 of 2 - Risk 2-dose series) HEPATITIS A (1 of 2 - Risk 2-dose series) [facility] Start: 02-17-1975 Hepatitis A Vaccine (1 of 2 - Risk 2-dose series) Hepatitis A Vaccine (1 of 2 - Risk 2-dose series) [facility] Start: 02-17-1975 HEPATITIS B (1 of 3 - Risk 3-dose series) HEPATITIS B (1 of 3 - Risk 3-dose series) [facility] Start: 02-17-1975 Urine microalbumin profile [facility] Start: 02-17-1974 Adult BMI Follow Up Plan Adult BMI Follow Up Plan [facility] Start: 02-17-1974 ANNUAL PCP TEAM CHRONIC DISEASE VISIT ANNUAL PCP TEAM CHRONIC DISEASE VISIT [facility] Start: 02-17-1974 Anxiety Screening Anxiety Screening [facility] Start: 02-17-1974 BP CONTROLLED (<130/80) BP CONTROLLED (<130/80) [facility] Start: 02-17-1974 Depression Screening Depression Screening [facility] Start: 02-17-1974 Diabetes mellitus screening Diabetes Screening [facility] Start: 02-17-1974 Hepatitis C screening Hepatitis C Screening [facility] Start: 02-17-1974 HIV SCREENING HIV SCREENING [facility] Start: 02-17-1974 MMR (1 of 2 - Risk 2-dose series) MMR (1 of 2 - Risk 2-dose series) [facility] Start: 02-17-1974 MMR Vaccine (1 of 2 - Risk 2-dose series) MMR Vaccine (1 of 2 - Risk 2-dose series) [facility] Start: 02-17-1967 Screening for malignant neoplasm of cervix Cervical Cancer Screening [facility] Start: 02-17-1966 Meningococcal B Vaccine: Consider Based On Risk (1 of 4 - Increased Risk) Meningococcal B Vaccine: Consider Based On Risk (1 of 4 - Increased Risk) [facility] Start: 02-17-1966 MENINGOCOCCAL B: Consider based on risk (1 of 4 - Increased Risk Bexsero 2-dose series) MENINGOCOCCAL B: Consider based on risk (1 of 4 - Increased Risk Bexsero 2-dose series) [facility] Start: 02-17-1966 MENINGOCOCCAL B: Consider based on risk (1 of 4 - Increased Risk) MENINGOCOCCAL B: Consider based on risk (1 of 4 - Increased Risk) [facility] Start: 02-17-1957 HEPATITIS A (1 of 2 - Risk 2-dose series) HEPATITIS A (1 of 2 - Risk 2-dose series) [facility] Start: 1956 Lipid panel Lipid Panel [facility] Start: 1956 Medicare Annual Wellness Visit Medicare Annual Wellness Visit (AWV) [facility] Start: 1956 Screening for malignant neoplasm of colon [facility] Start: 1956 Screening for osteoporosis Bone Density Scan [facility] Bacteria identified in Urine by Culture [facility] Work Phone: End: 03-13-2023 C reactive protein [Mass/volume] in Serum or Plasma C-REACTIVE PROTEIN (CRP) Lab Routine Membranous lupus nephritis syndrome (HCC) High risk medication use Systemic lupus erythematosus, unspecified SLE type, unspecified organ involvement status (HCC) Every 4 months for 6 Occurrences starting 03/13/2022 until 03/13/2023, 1 completed [facility] Work Phone: Comment on above: Every 4 months for 6 Occurrences startin g 03/13/2022 until 03/13/2023, 1 completed CALCIUM 24 HR URINE CALCIUM 24 H R URINE Lab Routine Osteopenia, unspecified location Vitamin D deficiency disease Serum calcium elevated 04/22/2022 8:30 AM EDT [facility] Work Phone: End: 04-26-2023 Cardiac mri for velocity flow mapping MRI CARDIAC VELOCITY FLOW MAP Radiology Routine Hypertrophic obstructive cardiomyopathy (HCC) 1 Occurrences starting 03/27/2022 until 04/26/2023 [facility] Work Phone: Comment on above: 1 Occurrences starting 03/27/2022 until 04/26/2023 End: 04-26-2023 Cardiac mri w/wo contrast & further seq MRI CARDIAC MORPH FUNC WO/W IVCON Radiology Routine Hypertrophic obstructive cardiomyopathy (HCC) 1 Occurrences starting 03/27/2022 until 04/26/2023 [facility] Work Phone: Comment on above: 1 Occurrences starting 03/27/2022 until 04/26/2023 End: 03-13-2023 CBC W Auto Differential panel - Blood CBC + DIFF Lab Routine Membranous lupus nephritis syndrome (HCC) High risk medication use Systemic lupus erythematosus, unspecified SLE type, unspecified organ involvement status (HCC) Every 4 months for 6 Occurrences starting 03/13/2022 until 03/13/2023, 1 completed [facility] Work Phone: Comment on above: Every 4 months for 6 Occurrences startin g 03/13/2022 until 03/13/2023, 1 completed Clostridioides diffi cile toxin genes [Presence] in Stool by RAVIN with probe detection C. DIFFICILE PCR Lab Routine Diarrhea, unspecified type Ordered: 02/21/2022 [facility] Work Phone: Comment on above: Ordered: 02/21/2022 End: 02-19-2024 COLONOSCOPY DIAGNOSTIC COLONOSCOPY DIAGNOSTIC Endoscopy Routine IBD (inflammatory bowel disease) 1 Occurrences starting 2023 until 02/19/2024 [facility] Work Phone: Comment on above: 1 Occurrences starting 2023 until 02/19/2024 End: 03-13-2023 Complement C3 [Mass/volume] in Serum or Plasma C3 COMPLEMENT BLD Lab Routine Membranous lupus nephritis syndrome (HCC) High risk medication use Systemic lupus erythematosus, unspecified SLE type, unspecified organ involvement status (HCC) Every 4 months for 6 Occurrences starting 03/13/2022 until 03/13/2023, 1 completed [facility] Work Phone: Comment on above: Every [...] Occurrences starting 03/13/2022 until 03/13/2023, 1 completed [facility] Work Phone: Comment on above: Every [...] Occurrences starting 03/13/2022 until 03/13/2023, 1 completed [facility] Work Phone: Comment on above: Every 4 months for 6 Occurrences startin g 03/13/2022 until 03/13/2023, 1 completed CREATININE 24 HR UR CREATININE 2 4 HR UR Lab Routine Osteopenia, unspecified location Vitamin D deficiency disease Serum calcium elevated 04/22/2022 8:30 AM EDT [facility] Work Phone: End: 02-22-2026 CT Foot - left WO contrast CT FOOT WO IVCON LEFT Radiology Routine Closed fracture of left foot, initial encounter 1 Occurrences starting 01/23/2025 until 02/22/2026 [facility] Work Phone: Comment on above: 1 Occurrences starting 01/23/2025 until 02/22/2026 End: 08-15-2024 CT watchman full contrast [facility] Service Area Work Phone: Comment on above: Once for 1 Occurrences starting 08/15/20 until 08/15/2024 Dxa bone density vinicius dy 1/> sites axial skel DXA-AXIAL SKELETON Radiology Routine Asymptomatic postmenopausal status 03/13/2022 3:21 PM EDT [facility] Work Phone: End: 11-11-2024 DXA Skeletal system.axial Views for bone density and vertebral fracture DXA-AXIAL SKELETON WITH VFA Radiology Routine Osteopenia, unspecified location S/P parathyroidectomy halfway (current) use of 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 Vitamin D deficiency disease 1 Occurrences starting 10/13/2023 until 11/11/2024 [facility] Work Phone: Comment on above: 1 Occurrences starting 10/13/2023 until 11/11/2024 ECG 12 Lead ECG 12 Lead ECG Routine Paroxysmal atrial fibrillation (CMS/HCC) 11/09/2023 8:58 AM EDT [facility] Work Phone: ECG 12 Lead ECG 12 Lead ECG Routine Pre-operative clearance 01/27/2025 8:30 AM EDT [facility] Work Phone: ECG 12 lead (Clinic Performed) ECG 12 lead (Clinic Performed) ECG Routine Paroxysmal atrial fibrillation (CMS/HCC) Atypical atrial flutter (CMS/HCC) 11/16/2023 3:30 PM EDT [facility] Work Phone: ECG 12 lead (Clinic Performed) ECG 12 lead (Clinic Performed) ECG Routine Paroxysmal atrial fibrillation (Multi) 02/15/2024 4:42 PM EDT [facility] Work Phone: ECG 12 lead (Clinic Performed) ECG 12 lead (Clinic Performed) ECG Routine Paroxysmal atrial fibrillation (Multi) 05/16/2024 4:03 PM EDT [facility] Work Phone: End: 03-27-2023 ECG COMPLETE ECG COMPLETE ECG Routine Hypertrophic obstructive cardiomyopathy (HCC) 1 Occurrences starting 03/27/2022 until 03/27/2023 [facility] Work Phone: Comment on above: 1 Occurrences starting 03/27/2022 until 03/27/2023 End: 03-27-2023 Echocardiography ECHO Cardiology Routine Hypertrophic obstructive cardiomyopathy (HCC) 1 Occurrences starting 03/27/2022 until 03/27/2023 [facility] Work Phone: Comment on above: 1 Occurrences starting 03/27/2022 until 03/27/2023 Electrophysiology study Electrop hysiology procedure Electrophysiology Routine Persistent atrial fibrillation (Multi) Atypical atrial flutter (Multi) 01/05/2024 2:06 PM EDT [facility] Service Area Work Phone: End: 03-22-2024 Electrophysiology study [facility] Service Are a Work Phone: Comment on above: Once for 1 Occurrences starting 03/22/20 24 until 03/22/2024 ENTERIC BACTERIAL PA ANA BY PCR ENTERIC BACTERIAL PANEL BY PCR Lab Routine Diarrhea, unspecified type Ordered: 02/21/2022 [facility] Work Phone: Comment on above: Ordered: 02/21/2022 End: 03-13-2023 Erythrocyte sedimentation rate SED RATE WESTERGREN Lab Routine Membranous lupus nephritis syndrome (HCC) High risk medication use Systemic lupus erythematosus, unspecified SLE type, unspecified organ involvement status (HCC) Every 4 months for 6 Occurrences starting 03/13/2022 until 03/13/2023, 1 completed [facility] Work Phone: Comment on above: Every 4 months for 6 Occurrences startin g 03/13/2022 until 03/13/2023, 1 completed Giardia lamblia+Cryptosporidium sp Ag [Presence] in Stool by Immunoassay CRYPTOSPORIDIUM AND GIARDIA ANTIGENS BY EIA Microbiology Routine Diarrhea, unspecified type Ordered: 02/21/2022 [facility] Work Phone: Comment on above: Ordered: 02/21/2022 Lipid 1996 panel - S dm or Plasma Lipid profile Lab Routine Mixed hyperlipidemia 03/30/2024 7:48 PM EDT [facility] End: 03-30-2025 Lipid panel Lipid panel Lab Routine Mixed hyperlipidemia 1 Occurrences starting 03/30/2024 until 03/30/2025 [facility] Comment on above: 1 Occurrences starting 03/30/2024 until 03/30/2025 End: 10-29-2024 MR Biliary ducts and Pancreatic duct WO and W contrast IV MRI PANC/JEANIE WO/W IVCON Radiology Routine Pancreatic cyst 1 Occurrences starting 09/30/2023 until 10/29/2024 [facility] Work Phone: Comment on above: 1 Occurrences starting 09/30/2023 until 10/29/2024 End: 10-29-2024 MR Unspecified body region 3D post processing MRI 3D POST PROCESSING Radiology Routine Pancreatic cyst 1 Occurrences starting 09/30/2023 until 10/29/2024 [facility] Work Phone: Comment on above: 1 Occurrences starting 09/30/2023 until 10/29/2024 End: 07-31-2023 Parathyroid imaging w/tomographic spect & ct NM PARATHYROID W SPECT/CT Radiology Routine Hyperparathyroidism (HCC) 1 Occurrences starting 07/01/2022 until 07/31/2023 [facility] Work Phone: Comment on above: 1 Occurrences starting 07/01/2022 until 07/31/2023 Patient Education [facility] Work Phone: Patient referral [facility] Work Phone: Renal function 2000 panel - Serum or Plasma RENAL FUNCTION PANEL Lab Routine Paroxysmal atrial fibrillation (HCC) Epistaxis Preoperative examination, unspecified 08/11/2024 10:10 AM EST [facility] SARS-CoV-2 (COVID-19 ) N gene [Presence] in Respiratory specimen by RAVIN with probe detection [facility] Work Phone: SARS-CoV-2 (COVID-19 ) RNA [Presence] in Respiratory specimen by RAVIN with probe detection PRE-PROCEDURE & PRE-OPERATIVE COVID Microbiology Routine Encounter for prophylactic measures, unspecified Ordered: 03/06/2022 [facility] Work Phone: Comment on above: Ordered: 03/06/2022 End: 10-11-2025 Six minute walk Six minute walk Respiratory Care Routine Dyspnea on exertion 1 Occurrences starting 10/11/2024 until 10/11/2025 [facility] Work Phone: Comment on above: 1 Occurrences starting 10/11/2024 until 10/11/2025 SURGICAL PATHOLOGY [facility] Work Phone: Comment on above: Release Upon Ordering for 1 Occurrences starting 04/02/2023, 1 completed End: 03-30-2025 Thyroid profile includes TSH FT4 Thyroid profile includes TSH FT4 Lab Routine Acquired hypothyroidism 1 Occurrences starting 03/30/2024 until 03/30/[address] [email or web address] Comment on above: 1 Occurrences starting 03/30/2024 until 03/30/2025 Thyroid profile incl udes TSH FT4 Thyroid profile includes TSH FT4 Lab Routine Acquired hypothyroidism 03/30/2024 7:48 PM EDT [facility] [employer] [facility] End: 03-13-2023 Urinalysis complete panel - Urine URINALYSIS, WITH MICROSCOPIC Lab Routine Membranous lupus nephritis syndrome (HCC) High risk medication use Systemic lupus erythematosus, unspecified SLE type, unspecified organ involvement status (HCC) Every 4 months for 6 Occurrences starting 03/13/2022 until 03/13/2023 [facility] Work Phone: Comment on above: Every 4 months for 6 Occurrences startin g 03/13/2022 until 03/13/2023 End: 09-12-2024 US Heart Transthoracic [facility] Service Area Work Phone: Comment on above: Once for 1 Occurrences starting 09/12/19 until 09/12/2024 End: 01-27-2025 US Kidney - bilateral and Urinary bladder US KIDNEY/BLADDER Radiology Routine Membranous glomerulonephritis 1 Occurrences starting 12/29/2023 until 01/27/2025 [facility] Work Phone: Comment on above: 1 Occurrences starting 12/29/2023 until 01/27/2025 US Kidney - bilatera l and Urinary bladder US KIDNEY/BLADDER Radiology Routine Membranous glomerulonephritis 03/28/2024 11:57 AM EDT [facility] Work Phone: US THYROID/PARATHYRO ID (POC) ENDO USE ONLY US THYROID/PARATHYROID (POC) ENDO USE ONLY Imaging Diagnostic Routine Primary hyperparathyroidism (HCC) Ordered: 07/07/2022 [facility] Work Phone: Comment on above: Ordered: 07/07/2022 End: 01-18-2026 XR Foot - right AP and Lateral and oblique XR FOOT GENERAL 3V AP/LAT/OBL RIGHT Radiology Routine Pain in right foot 1 Occurrences starting 12/19/2024 until 01/18/2026 [facility] Work Phone: Comment on above: 1 Occurrences starting 12/19/2024 until 01/18/2026 End: 01-20-2026 XR Foot - right AP and Lateral and oblique XR FOOT GENERAL 3V AP/LAT/OBL RIGHT Radiology Routine Sprain of right foot, initial encounter Closed nondisplaced fracture of navicular bone of right foot, initial encounter Osteoarthritis of midtarsal joint of right foot 1 Occurrences starting 12/21/2024 until 01/20/2026 [facility] Work Phone: Comment on above: 1 Occurrences starting 12/21/2024 until 01/20/2026 End: 05-18-2026 XR Foot - right AP and Lateral and oblique XR FOOT GENERAL 3V AP/LAT/OBL RIGHT Radiology Routine Charcot arthropathy 1 Occurrences starting 04/18/2025 until 05/18/2026 [facility] Work Phone: Comment on above: 1 Occurrences starting 04/18/2025 until 05/18/2026 End: 07-31-2024 XR FOOT GENERAL 3V AP/LAT/OBL LEFT XR FOOT GENERAL 3V AP/LAT/OBL LEFT Radiology Routine Pain in left foot 1 Occurrences starting 07/02/2023 until 07/31/2024 [facility] Work Phone: Comment on above: 1 Occurrences starting 07/02/2023 until 07/31/2024 End: 04-14-2025 XR Knee - left 4 Views XR KNEE GENERAL 4V AP BOTH/PA BOTH/LAT/MERC LEFT Radiology Routine Osteopenia of multiple sites S/P parathyroidectomy halfway (current) use of 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 Acute pain of left knee 1 Occurrences starting 03/15/2024 until 04/14/2025 [facility] Work Phone: Comment on above: 1 Occurrences starting 03/15/2024 until 04/14/2025 XR Knee - left 4 Views XR KNEE G ENERAL 4V AP BOTH/PA BOTH/LAT/MERC LEFT Radiology Routine Osteopenia of multiple sites 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 Immunizations Immunization Date Immunization Notes Care Provider [facility] 05-19-2024 Seasonal trivalent influenza vaccine, adjuvanted, preservative free Wojciech Treviño DO Work Phone: [facility] 05-19-2024 Immunization, In Clinic,; Translations: [Drug or medicament (substance)] Wojciech Treviño DO Work Phone: [facility] 05-19-2024 influenza virus vaccine, unspecified formulation Wojciech Treviño DO Work Phone: [facility] 05-17-2024 influenza, seasonal, injectable Yuriy Conway MD Work Phone: [facility] 09-17-2023 influenza (HD-IIV4) vaccine, age 65+ yr, high dose, quadrivalent, PF (FLUZONE HIGH-DOSE) Julia Ann PA-C Work Phone: [facility] 09-17-2023 respiratory syncytia l virus (RSV) vaccine, adjuvanted (AREXVY) Julia Ann PA-C Work Phone: [facility] 09-17-2023 influenza virus vaccine, unspecified formulation Christian Kaur APRN-RESPIRATORY CLINICIAN Work Phone: [facility] Work Phone: 02-04-2023 pneumococcal Conjuga te, unspecified formulation Nadege Murphy DO Work Phone: [facility] Work Phone: 02-04-2023 pneumococcal (PCV20) vaccine, 20 valent (PREVNAR 20) Nadege Murphy DO Work Phone: [facility] 05-16-2022 influenza nasal, unspecified formulation Julia Ann PA-C Work Phone: [facility] 05-16-2022 influenza, high-dose , quadrivalent vaccine (FLUZONE HIGH DOSE QUADRIVALENT) [facility] 2 Work Phone: [facility] 05-16-2022 influenza virus vaccine, unspecified formulation Heather Gruber PA-C Work Phone: [facility] 07-23-2021 Moderna COVID-19 Vaccine 100 MCG/0.5ML Intramuscular Suspension Wojciech Johnston [facility] [facility] Work Phone: 05-16-2021 influenza, high-dose , quadrivalent vaccine (FLUZONE HIGH DOSE QUADRIVALENT) Dione Frances MD Work Phone: [facility] 10-24-2020 Iris COVID-19 Vaccine 0.5 ML Intramuscular Suspension Wojciech Johnston Furlong [facility] Work Phone: 07-03-2020 influenza, injectabl e, quadrivalent, contains preservative Dione Frances MD Work Phone: [facility] 04-02-2020 zoster vaccine recombinant Dione Frances MD Work Phone: [facility] 10-21-2019 zoster vaccine recombinant Dione Frances MD Work Phone: [facility] 06-20-2019 influenza, injectabl e, quadrivalent, preservative free Dione Frances MD Work Phone: [facility] Work Phone: 06-17-2019 influenza, seasonal, injectable Wojciech Furlong DO Work Phone: [facility] 05-19-2018 influenza, injectabl e, quadrivalent, contains preservative Dione Frances MD Work Phone: [facility] 05-11-2017 influenza, injectabl e, quadrivalent, contains preservative Dione Frances MD Work Phone: [facility] 05-29-2016 influenza nasal, unspecified formulation Julia Ann PA-C Work Phone: [facility] 05-29-2016 influenza virus vaccine, unspecified formulation Wojciech Furlong DO Work Phone: [facility] 05-29-2016 influenza, injectabl e, quadrivalent, preservative free Nadege Murphy DO Work Phone: [facility] 05-29-2016 influenza, seasonal, injectable, preservative free Dione Frances MD Work Phone: [facility] 05-27-2016 pneumococcal polysaccharide vaccine, 23 valent Dione Frances MD Work Phone: [facility] 09-14-2015 pneumococcal conjuga te vaccine, 13 valent Dione Frances MD Work Phone: [facility] Work Phone: 09-14-2015 pneumococcal polysaccharide vaccine, 23 valent Dione Frances MD Work Phone: [facility] Work Phone: 07-31-2015 influenza nasal, unspecified formulation Julia Ann PA-C Work Phone: [facility] 07-31-2015 influenza virus vaccine, unspecified formulation Wojciech Furlong DO Work Phone: [facility] 07-31-2015 influenza, seasonal, injectable, preservative free Dione Frances MD Work Phone: [facility] Work Phone: 05-24-2014 influenza, injectabl e, quadrivalent, preservative free Dione Frances MD Work Phone: [facility] Work Phone: 05-24-2014 influenza, seasonal, injectable Dione Frances MD Work Phone: [facility] 06-03-2013 influenza virus vaccine, unspecified formulation Dione Frances MD Work Phone: [facility] 05-11-2012 influenza virus vaccine, unspecified formulation Dione Frances MD Work Phone: [facility] Work Phone: 07-16-2011 influenza virus vaccine, unspecified formulation Dione Frances MD Work Phone: [facility] 05-02-2010 influenza virus vaccine, unspecified formulation Dione Frances MD Work Phone: [facility] 05-02-2010 pneumococcal polysaccharide vaccine, 23 valent Dione Frances MD Work Phone: [facility] Payers Date Payer Category Payer Self-pay [id number] 2021 Managed Care Other (unspecified) [facility] [place] [address] [id number] 2021 Miscellaneous or Other [facility] [id number] 2021 Unknown [id number] 2020 Private Health Insurance [id number] 2020 Unknown [facility] [place] [id number] 2020-Present [phone] [id number] [place] [address] Indemnity [id number] 2014 Medicare [id number] .[id number] 2014 Medicare [id number]. 1.13.159.2 .7.3.431659.315 2014 Unknown [id number]. 1.13.159.2 .7.3.685835.315 1959 Medicare [id number] 1959 Unknown [id number] 1956 Unknown [id number] 2.16.840.1.309743.3.579.2 .355 1956 Unknown [id number] 2.16.840.1.322087.3.579.2 .355 1956 Unknown [id number] 2.16.840.1.524869.3.579.2 .8 1956 Unknown [id number] 2.16.840.1.410270.3.579.2 .8 1956 Unknown [id number] 2.16.840.1.293394.3.579.2 .1068 1956 Unknown [id number] 2.16.840.1.771750.3.579.2 .593 1956 Unknown [id number] 2.16.840.1.159508.3.579.2 .593 1956 Unknown [id number] 2.16.840.1.818206.3.579.2 .593 1956 Unknown [id number] 2.16.840.1.308529.3.579.2 .1258 1956 Unknown [id number] 2.16.840.1.701162.3.579.2 .1258 1956 Unknown [id number] 2.16.840.1.192078.3.579.2 .9 1956 Unknown [id number] 2.16.840.1.204947.3.579.2 .1244 1956 Unknown [id number] 2.16.840.1.261985.3.579.2 .1244 1956 Unknown [id number] 2.16.840.1.004621.3.579.2 .1244 1956 Unknown [id number] 2.16.840.1.060756.3.579.2 .1244 1956 Unknown [id number] 2.16.840.1.058157.3.579.2 .124 1956 Unknown [id number] 2.16.840.1.341239.3.579.2 .1244 1956 Unknown [id number] 2.16.840.1.557760.3.579.2 .1244 1956 Unknown [id number] 2.16.840.1.300897.3.579.2 .1245 1956 Unknown [id number] 2.16.840.1.091351.3.579.2 .1245 1956 Unknown [id number] 2.16.840.1.041214.3.579.2 .1245 1956 Unknown [id number] 2.840.1.552041.3.579.2 .1245 1956 Unknown [id number] 2.840.1.224946.3.579.2 .1285 1956 Unknown [id number] 2.840.1.190084.3.579.2 .1285 1956 Unknown [id number] 2.840.1.959420.3.579.2 .1285 1956 Unknown [id number] 2.840.1.254299.3.579.2 .1285 1956 Unknown [id number] 2.840.1.436189.3.579.2 .1285 1956 Unknown [id number] 2.840.1.966215.3.579.2 .1285 1956 Unknown [id number] 2.840.1.595458.3.579.2 .1285 1956 Unknown [id number] 2.16840.1.395500.3.579.2 .1285 1956 Unknown [id number] 2.16840.1.186406.3.579.2 .1285 1956 Unknown [id number] 2.16840.1.512912.3.579.2 .1244 1956 Unknown [id number] 2.16.840.1.998053.3.579.2 .1244 1956 Unknown [id number] 2.16.840.1.691173.3.579.2 .1244 1956 Unknown [id number] 2.16.840.1.960367.3.579.2 .1244 Medicare Medicare-OP No Part A [id number] Private Health Insurance [employer] [facility] M [id number] Unknown [id number] Unknown [id number] 2.16.840.1.584978.3.579.2 .531 Unknown [id number] 2.16.840.1.423572.3.579.2 .531 Unknown [id number] 2.16.840.1.562490.3.579.2 .531 Unknown [id number] 2.16.840.1.157861.3.579.2 .531 Social History Date Type Detail Facility Start: 02-07-2022 End: 03-20-2025 Tobacco smoking status NHIS Never smoked tobacco [facility] Start: 10-29-2021 End: 11-15-2024 Alcohol intake Current drinker of alcohol (finding) [facility] Start: 07-11-2020 History SDOH Alcohol Frequency 2 [facility] Start: 12-06-2020 History SDOH Alcohol Comment very rare [facility] Start: 1955 Sex Assigned At Female [facility] Work Phone: Start: 03-27-2020 End: 12-07-2024 Exposure to SARS-CoV-2 (event) Not sure [facility] Start: 09-02-2017 End: 03-20-2025 Tobacco use and exposure Smokeless tobacco non-user [facility] Start: 07-11-2020 End: 01-08-2023 No illicit drug use No illicit drug use [facility] Work Phone: Start: 07-11-2020 End: 01-08-2023 Alcohol Use Disorder Identification Test - Consumption [AUDIT-C] [facility] Work Phone: How often to you hav e a drink containing alcohol? Monthly or less [facility] Work Phone: Start: 07-18-2012 Average Number of Drinks Not on file [facility] Start: 11-24-2018 Gender identity Identifies as female gender (finding) [facility] Work Phone: Start: 11-24-2018 Sexual orientation Heterosexua l (finding) [facility] Work Phone: Start: 03-18-2019 Alcohol Comment seldom [facility] Start: 08-27-2023 End: 09-17-2023 Alcohol intake Lifetime non-drinker (finding) [facility] Work Phone: Start: 1955 Sex Assigned At Not on file [facility] Work Phone: Start: 08-04-2023 Alcohol Comment caffeine: none [facility] Start: 05-19-2024 End: 12-29-2024 Alcoholic beverage intake Current non-drinker of alcohol (finding) [facility] Has the [employer], or [employer] threatened to shut off services in your home in past 12Mo No [facility] Are you now , , , , never or living with a partner? [facility] How many standard dr inks containing alcohol do you have on a typical day? 1 or 2 [facility] How often do you hav e 6 or more drinks on 1 occasion? Never [facility] Do you feel stress - tense, restless, nervous, or anxious, or unable to sleep at night because your mind is troubled all the time - these days [OSQ] Only a little [facility] Start: 07-20-2022 Education 12 [facility] Start: 03-22-2015 End: 09-19-2024 Sex Female (finding) [facility] How hard is it for y ou to pay for the very basics like food, housing, medical care, and heating Not very hard [facility] Start: 03-20-2025 End: 04-18-2025 Alcoholic beverage intake Ex-drinker (finding) [facility] (I/We) worried britt (my/our) food would run out before (I/we) got money to buy more. Never true [facility] NEGATED: Highlighted rowStart: NINF History of tobacco use Passive smoker [facility] Medical Equipment Procedure Code Equipment Code Equipment Origin al Text Equipment Identifier Dates Trident X3 Polyethylene Insert 0deg 36mm Sz [id number] Start: 12-18-2020 Stem Accolade Ii 5 132d Femoral - [id number] Start: 12-18-2020 Shell Trident Ii 52mm E Tritanium Acetabular 5 Screw Hole Cluster Sterile - [id number] Start: 12-18-2020 Head V40 36mm 0m m Offset Taper Biolox Delta Femoral Hip - [id number] Start: 12-18-2020 Plate 3d Lck Ginna iax Bn Rt Ft - [id number] Start: 04-03-2014 Screw Bn 4mm 32m m Autofx - [id number] Start: 04-03-2014 Screw 3.0x38 Aut ofix - [id number] Start: 04-03-2014 Screw Bn 3.5mm 1 6mm Variax Ft - [id number] Start: 04-03-2014 Screw Bn 3.5mm 1 4mm Variax Ft - [id number] Start: 04-03-2014 Screw Bn 3.5mm 1 2mm Variax Ft - [id number] Start: 04-03-2014 Screw Trident Ii 6.5mm 25mm Bone Low Profile Hexagonal Sterile - [id number] Start: 12-18-2020 Wire Fix .062in 9in Krsh Ss - [id number] Start: 04-03-2014 Device, Closure, 40mm Watchman Flx Pro Laac - [id number] Start: 04-07-2024 Bonus Triad 5cc - [id number] Start: 04-03-2025 Graft Bn Augment Inj 3.0cc - [id number] Start: 04-03-2025 Medial Column Fu la nena Plate Lg Ortholoc 3di Plating - [id number] Start: 04-03-2025 Screw Ortholoc 3 .5mm Full Thread Purple 22mm Bone 3di Technology Polyaxial - [id number] Start: 04-03-2025 Screw Ortholoc 3 .5mm Full Thread Purple 24mm Bone 3di Technology Self - [id number] Start: 04-03-2025 Screw Bone 8mm 8 5mm Asnis Iii Titanium Fully Threaded Cannulated Self - [id number] Start: 04-03-2025 Ortholoc 3di Scr ew Abdulkadir 3.5x26mm [id number] Start: 04-03-[address] Ti 8.0x 80 [id number] Start: 04-03-2025 Screw Ortholoc 3 di 3.5mm Bronze 38mm Bone Low Profile Self Tapping Threaded - [id number] Start: 04-03-2025 Screw Ortholoc 3 .5mm Full Thread Low Profile Bronze 40mm Bone 3di - [id number] Start: 04-03-2025 Screw Ortholoc 3 .5mm Full Thread Purple 16mm Bone 3di Technology Self - [id number] Start: 04-03-2025 Screw Ortholoc 3 di 3.5mm Full Thread Low Profile Purple 18mm Bone Lock Over - [id number] Start: 04-03-2025 Screw Ortholoc 3 .5mm Full Thread Purple 20mm Bone 3di Technology Lock - [id number] Start: 04-03-2025 Easyfuse Staple 25x20 Nitinol 2-Leg [id number] Start: 04-03-2025 Goals Date Patient Goal Desired Activity /State Functional Status Date Assessment Result Facility 04-04-2025 Are you deaf, or do you have serious difficulty hearing No 04/04/2025 3:25 PM Isabella Naqvi RN No [facility] 04-04-2025 Are you blind, or do you have serious difficulty seeing, even when wearing glasses No 04/04/2025 3:25 PM Isabella Naqvi RN No [facility] 04-04-2025 Do you have serious difficulty walking or climbing stairs No 04/04/2025 3:25 PM Isabella Naqvi RN No [facility] 04-04-2025 Do you have difficul ty dressing or bathing No 04/04/2025 3:25 PM Isabella Naqvi RN No [facility] 04-04-2025 Because of a physica l, mental, or emotional condition, do you have difficulty doing errands alone such as visiting a physician's office or shopping No 04/04/2025 3:25 PM Isabella Naqvi RN No [facility] 08-28-2022 Are you deaf, or do you have serious difficulty hearing No 08/28/2022 10:02 AM Sravani Ramirez RN No [facility] 08-28-2022 Are you blind, or do you have serious difficulty seeing, even when wearing glasses No 08/28/2022 10:02 AM Sravani Ramirez RN No [facility] 08-28-2022 Do you have serious difficulty walking or climbing stairs No 08/28/2022 10:02 AM Sravani Ramirez RN No [facility] 08-28-2022 Do you have difficul ty dressing or bathing No 08/28/2022 10:02 AM Sravani Ramirez RN No [facility] 08-28-2022 Because of a physica l, mental, or emotional condition, do you have difficulty doing errands alone such as visiting a physician's office or shopping No 08/28/2022 10:02 AM Sravani Ramirez RN No [facility] 02-09-2022 Functional status Patient at [facility] Work Phone: 02-07-2022 Functional status Patient Not at [facility] Work Phone: Mental Status Date Assessment Result Facility 04-04-2025 Because of a physica l, mental, or emotional condition, do you have serious difficulty concentrating, remembering, or making decisions No 04/04/2025 3:25 PM EDT Isabella Best RN No [facility] 08-28-2022 Because of a physica l, mental, or emotional condition, do you have serious difficulty concentrating, remembering, or making decisions No 08/28/2022 10:02 AM Sravani Ramirez RN No [facility] 02-09-2022 Cognitive function Cognitive Sta tus Patient at [facility] Work Phone: 02-07-2022 Cognitive function Cognitive Sta tus Patient Not at [facility] Work Phone: Clinical Notes 10-14-2017 to 04-18-2025 Telephone Encounter - Doreen Ashby RN - 04/18/2025 1:40 PM EDTTelephone Encounter - Doreen Ashby RN - 04/18/2025 1:40 PM EDTBNicholas vazquez MA - 04/18/2025 1:31 PM EDTPatient InstructionsAttachments Note Date & Type Note Facility 04-18-2025 Telephone encounter Note I left a message for Jesus just now to help schedule a one week wound check appointment with either JOSEPH Chiu at [place] on 04/[address] Hall at [place] on 04/24 (afternoon add-on). Fercho had one late afternoon slot left on 04/25. I will wait for her call. Doreen Ashby RN [facility] 04-18-2025 Miscellaneous Notes I left a message for Jesus just now to help schedule a one week wound check appointment with either JOSEPH Chiu at [place] on 04/[address] Hall at [place] on 04/24 (afternoon add-on). Fercoh had one late afternoon slot left on 04/25. I will wait for her call. Doreen Ashby RN documented in this encounter [facility] 04-18-2025 Note HNO ID: [id number] Author: NICHOLAS ARBOLEDA MA Service: ? Author Type: Stock Hanger Type: Progress Notes Filed: 04/18/2025 13:33 Note Text: PT ASSESSMENT - CASTING ROOM Jesus presents for Application of cast. Applied short cast: to Right leg Patient has been instructed in Care of cast.. Nicholas Arboleda MA [facility] 04-18-2025 History of Present illness Narrative PT ASSESSMENT - CASTING ROOM Jesus presents for Application of cast. Applied short cast: to Right leg Patient has been instructed in Care of cast.. Nicholas Arboleda MA documented in this encounter [facility] 04-18-2025 Note HNO ID: [id number] Author: FERCHO PRATHER PA-C Service: ? Author Type: Physician Analyst Competitive [employer] Type: Progress Notes Filed: 04/18/2025 12:49 Note Text: POD #15 Surgery: Right subtalar joint fusion; Right talonavicular joint fusion; Multiple midfoot fusion (first and second tarsometatarsal joints, medial naviculocuneiform joint) on 04/03/2025 Dressings: post op splint and dressing removed. Incision: medial foot incision with slight dehiscence and serous fluid drainage. Mild erythema surrounding dorsal foot incision over 2nd TMT. Sutures: Kept sutures in place for additional wound healing. Drain: NA Pin sites: NA Right foot pain: history of neuropathy Calf assessment: soft, non-tender, no complaints of pain Concerns: none currently X-rays: none Plan: Place into short leg cast. NWB for a total of 10 weeks. Follow-up: 1-2 weeks for wound check. Fercho Prather PA-C [facility] 04-18-2025 History of Present illness Narrative POD #15 Surgery: Right subtalar joint fusion; Right talonavicular joint fusion; Multiple midfoot fusion (first and second tarsometatarsal joints, medial naviculocuneiform joint) on 04/03/2025 Dressings: post op splint and dressing removed. Incision: medial foot incision with slight dehiscence and serous fluid drainage. Mild erythema surrounding dorsal foot incision over 2nd TMT. Sutures: Kept sutures in place for additional wound healing. Drain: NA Pin sites: NA Right foot pain: history of neuropathy Calf assessment: soft, non-tender, no complaints of pain Concerns: none currently X-rays: none Plan: Place into short leg cast. NWB for a total of 10 weeks. Follow-up: 1-2 weeks for wound check. Fercho Prather PA-C documented in this encounter [facility] 04-04-2025 Note HNO ID: [id number] Author: MAKENZIE BRAY LISW Service: Care Management Author Type: Security Control Center Operator Type: Care Mgt Progress Note Filed: 04/04/2025 16:05 Note Text: CARE MANAGEMENT DISCHARGE NOTE SERVICE DATE: April 04, 2025 SERVICE TIME: 16:04 Admission Date: 04/03/2025 LOS: 1 day Discharge Arrangement The patient was discharged home with no needs. The patient was aware of the discharge. The patient will be transported by her spouse. SIGNATURE: THOMAS Pena PATIENT NAME: Jesus Wolf DATE: April 04, 2025 TIME: 4:05 PM [facility] 04-04-2025 Note HNO ID: [id number] Author: TAMIKO AUGUSTIN RN Service: Care Management Author Type: Registered Nurse Type: Care Mgt Progress Note Filed: 04/05/2025 08:18 Note Text: CARE MANAGEMENT UTILIZATION REVIEW COMMITTEE Condition Code 44 (Admission Status Discrepancy Review) Admission Date: 04/03/2025 Patient's Initial Order is: Inpatient Date Requested: 04/04/2025 Date Reviewed: 04/04/2025 Dr. Isabel md, the practitioner responsible for the care of the patient, was consulted and concurs with the determination made by the Utilization Management Committee. Under the authority of the Utilization Management Committee, the Physician Advisor, Dr. Gaetano Garsia, has reviewed the medical record of the above patient. The Physician Advisor has made the following recommendation based on the currently available medical information as of the date of this determination. Recommended Status: Outpatient In a Bed / Extended Recovery Rationale for this decision: CPT code(s) not on inpatient only list SIGNATURE: Tamiko Augustin RN PATIENT NAME: Jesus Wolf DATE: April 05, 2025 TIME: 8:18 AM Disclaimer: The information in this determination is to be used for utilization management purposes only. The information and recommendation is made pursuant to Medicare Hospital Conditions of Participation (442 CFR Part 482) and is neither a judgment nor an assessment with regard to the appropriateness or quality of the clinical care. Nothing in this document may be used to limit clinical services provided to the above named patient. This form should be used as one part of the process utilized to ensure compliance with [facility] policy regarding Inpatient Admission and Observation Services. The definitions of Inpatient and Observation used in making the determination above are those provided in Medicare Benefit Policy Manual Chapter 1, Section 1 and 10, Chapter 6, Section 20, and the Medicare Claims Processing Manual Chapter 1, Section 50.3 and Chapter 4, Section 290. This recommendation should be considered as only one factor in determining the patient's final level of service along with other pertinent documentation such as the treating physician's order as documented evidence of concurrence. [facility] 04-04-2025 Note HNO ID: [id number] Author: ESPINOZA ROME MD Service: General Internal Medicine Author Type: Physician Type: Progress Notes Filed: 04/04/2025 13:54 Note Text: INPATIENT PROGRESS NOTE SERVICE DATE: 04/04/2025 SERVICE TIME: 1:50 PM PRIMARY SERVICE: ortho Subjective CHIEF COMPLAINT: none INTERVAL HPI: Patient seen for medical follow-up. She has no new concerns. Denies shortness of breath. No chest pain or palpitations. Current Facility-Administered Medications Medication Dose Route Frequency aspirin 81 mg chewable tab(s) 81 mg ORAL BID docusate 100 mg oral liquid (COLACE) 100 mg ORAL BID NaCl 0.9% iv flush bag 20 mL INTRAVENOUS PRN lactated ringers iv infusion 75 mL/hr INTRAVENOUS CONTINUOUS ondansetron 4 mg tab(s) (ZOFRAN) 4 mg ORAL q 6 H PRN Or ondansetron (PF) 4 mg injection (ZOFRAN) 4 mg INTRAVENOUS q 6 H PRN melatonin 1 mg tab(s) 1 mg ORAL DAILY (8 PM) [START ON 04/05/2025] apixaban 5 mg tab(s) (ELIQUIS) 5 mg ORAL BID amiodarone 300 mg tab(s) (PACERONE) 300 mg ORAL AT BEDTIME atorvastatin 40 mg tab(s) (LIPITOR) 40 mg ORAL DAILY colestipol 3 g tab(s) (COLESTID) 3 g ORAL BID pantoprazole DR 40 mg tab(s) (PROTONIX) 40 mg ORAL BID AC (0600/1600) busPIRone 10 mg tab(s) (BUSPAR) 10 mg ORAL BID venlafaxine ER 150 mg cap(s) (EFFEXOR XR) 150 mg ORAL DAILY acetaminophen 500 mg tab(s) (TYLENOL) 500 mg ORAL q 4 H PRN ykcayxp-iugnxmnqd-vpdpuln D3 500 mg-5 mcg (200 unit) 1 tablet 1 tablet ORAL TID cholecalciferol 2,000 Units tab(s) (VITAMIN D3) 2,000 Units ORAL DAILY ferrous sulfate 325 mg tab(s) 325 mg ORAL DAILY multivitamin-ferrous fumarate-folic acid 1 tablet (CENTRUM) 1 tablet ORAL DAILY balsalazide 2,250 mg cap(s) (COLAZAL) 2,250 mg ORAL TID oxyCODONE-acetaminophen 5-325 mg 1 tablet (PERCOCET) 1 tablet ORAL q 6 H PRN furosemide 20 mg tab(s) (LASIX) 20 mg ORAL DAILY levothyroxine 50 mcg tab(s) (SYNTHROID) 50 mcg ORAL DAILY (6 AM) metoprolol succinate ER 200 mg tab(s) (TOPROL XL) 200 mg ORAL DAILY Objective PHYSICAL EXAM: BP 120/56 Pulse 78 Temp (Src) 97.5 (Temporal) Resp 16 Ht 5' 6 (1.68m) Wt 262 lb (118.8kg) SpO2 96% LMP 07/17/2011 BMI 42.31 kg/(m2). O2 Therapy: Room Air Physical Exam Performed GENERAL: Alert, no distress, cooperative HEAD/SINUSES: No significant findings OROPHARYNX: Mucous membranes moist LUNGS: Clear CARDIAC: Rhythm: regular rate and rhythm ABDOMEN: Soft, nontender DATA: Diagnostic tests reviewed for today's visit: Most recent labs CBC with diff: WBC 14.25 04/04/2025 RBC 3.79 04/04/2025 Hemoglobin 12.5 04/04/2025 Hematocrit 37.8 04/04/2025 MCV 99.7 04/04/2025 MCH 33.0 04/04/2025 MCHC 33.1 04/04/2025 RDW-CV 13.4 04/04/2025 Platelet Count 167 04/04/2025 MPV 10.4 04/04/2025 Neut% 64.2 11/16/2024 Lymph% 20.2 11/16/2024 Medina% 11.6 11/16/2024 Eosin% 3.0 11/16/2024 Baso% 0.7 11/16/2024 Abs Neut (ANC) 4.65 11/16/2024 Abs Medina 0.84 11/16/2024 Abs Eosin 0.22 11/16/2024 Abs Baso 0.05 11/16/2024 Glucose (mg/dL) Date Value 04/04/2025 125 05/16/2021 84 Potassium (mmol/L) Date Value 04/04/2025 5.1 05/16/2021 4.4 Sodium (mmol/L) Date Value 04/04/2025 141 05/16/2021 141 Chloride (mmol/L) Date Value 04/04/2025 107 05/16/2021 107 CO2 (mmol/L) Date Value 04/04/2025 25 05/16/2021 25 Creatinine (mg/dL) Date Value 04/04/2025 0.95 05/16/2021 0.84 BUN (mg/dL) Date Value 04/04/2025 21 05/16/2021 14 Anion Gap (mmol/L) Date Value 04/04/2025 9 05/16/2021 9 Calcium (mg/dL) Date Value 05/16/2021 10.3 Calcium, Total (mg/dL) Date Value 04/04/2025 8.9 Assessment AND Plan Primary hypertension Present on Admission: Yes Other hyperlipidemia Present on Admission: Yes These medical problems remained stable. Patient is stable for discharge as per Ortho team plan. She will follow-up with her PCP after discharge. Wound 08/03/23 1248 Pressure Injury Foot Anterior;Left (Active) Properties Placement Date 08/03/23 Placement Time 1248 Location Foot Primary Wound Type Pressure Injury If Pressure Injury, is it Device Related? If Yes, Add Device Type in Comment Box No Wound Location Orientation Anterior;Left Wound Description (Comments) 2nd toe at the nuckle abrasion Assessments 04/03/2025 4:24 PM IF PATIENT HAS A PRESSURE INJURY: WHEN WAS IT ACQUIRED? (Document one time during this admission) Present on Admission during this Encounter Medication and Non-Pharmacologic VTE Prophylaxis/Anticoagulants Anticoagulant AND Antiplatelet Medications (From admission, onward) Start Dose Route Frequency Last Action Ordered Stop 04/05/25 0900 apixaban 5 mg tab(s) (ELIQUIS) (apixaban tab(s) (ELIQUIS)) 5 mg PO 2 TIMES DAILY Ordered 04/03/25 1524 -- 04/04/25 0900 aspirin 81 mg chewable tab(s) 81 mg PO 2 TIMES DAILY Given, 04/04 0902 04/03/25 1433 04/05/25 0859 04/03/25 1530 vte current anticoag therapy (wv,ia) 04/03/25 1530 pneumatic compression sleeve(s) ([place]) 04/03/25 1530 ac (more content not included)... [facility] 04-04-2025 Note HNO ID: [id number] Author: AAMIR GUZMAN DO Service: Orthopaedic Surgery Author Type: Resident Type: Progress Notes Filed: 04/04/2025 10:27 Note Text: Orthopaedic Surgery Inpatient Progress Note Patient Name: Jesus Wolf Attending: Aiden Laureano MD Date of Admission: 04/03/2025 6:51 AM Assessment: Jesus Wolf is a 70 year old year old female who is s/p right subtalar/medial column/2nd TMT fusion on 04/[address] Hall. Relevant PMH: Afib, CHF, CKD Additional issues being addressed on this admission: none Plan: Activity Weightbearing status: NWB RLE x 10 weeks, keep splint clean and dry Range of motion: No ROM of foot/ankle in splint DVT Prophylaxis ASA 81mg BID today, resume home eliquis POD2 ID Antibiotics: periop Ancef x24h Cultures: none Perioperative Care Dressing: maintain splint until follow up Pain control: Scheduled tylenol, PRN oxycodone Drain: none Diet: Regular Bowel reg Chavez: none Acute blood loss anemia: Hemoglobin 12, goal > 7, no indication for transfusion at this time Electrolytes/renal: unremarkable [employer] Case Management Items to follow up on today: Change splint, discharge Dispo: pending pain control Plan of care discussed with: Provider, RN, Patient. Subjective: No events overnight. Pain is controlled on percocet. Splint is soiled posterior with bloody drainage, will change splint. Denies chest pain, SOB. Objective: Vitals: 04/03/25 1615 04/03/25 2101 04/04/25 0008 04/04/25 0759 BP: 99/81 110/57 114/52 115/70 Pulse: 77 78 77 79 Resp: 16 16 18 Temp: 36.4 ?C (97.5 ?F) 36.7 ?C (98.1 ?F) 36.6 ?C (97.8 ?F) 36.4 ?C (97.5 ?F) TempSrc: Oral Oral Oral Temporal SpO2: 98% 93% 95% 95% Weight: Height: Physical Exam: General: Awake, alert, converses appropriately, no acute distress Respiratory: Unlabored on room air, no obvious wheezing Cardiovascular: RRR to peripheral palpation Focused Musculoskeletal Exam: RLE: Splint intact. Bloody drainage through posterior aspect of splint Wiggles toes Sensation diminished secondary to baseline neuropathy Toes are pink, warm, and well perfused Intake/Output Summary (Last 24 hours) at 04/04/2025 0931 Last data filed at 04/04/2025 0649 Gross per 24 hour Intake 1500 ml Output 2050 ml Net -550 ml Lab Review: Hemoglobin (g/dL) Date Value 04/04/2025 12.5 11/16/2024 15.0 05/16/2021 14.0 03/25/2021 15.0 WBC (k/uL) Date Value 04/04/2025 14.25 (H) 11/16/2024 7.24 05/16/2021 7.08 03/25/2021 7.76 PT INR (no units) Date Value 12/06/2020 1.0 08/30/2019 1.0 Glucose, Point of Care (mg/dL) Date Value 12/19/2020 130 (A) Creatinine (mg/dL) Date Value 04/04/2025 0.95 11/16/2024 1.04 (H) 05/16/2021 0.84 03/25/2021 0.88 Sodium (mmol/L) Date Value 04/04/2025 141 11/16/2024 142 05/16/2021 141 03/25/2021 142 Potassium (mmol/L) Date Value 04/04/2025 5.1 11/16/2024 4.5 05/16/2021 4.4 03/25/2021 3.8 Calcium (mg/dL) Date Value 05/16/2021 10.3 (H) 03/25/2021 10.5 (H) Calcium, Total (mg/dL) Date Value 04/04/2025 8.9 11/16/2024 9.6 Lines, Drains, and Airways Line Duration Peripheral 04/03/25 0738 [facility] Short Right Antecubital 20 Gauge 1 day Aamir Guzman DO Orthopaedic Surgery PGY-3 For [facility] floor related issues [place], [place] [phone] If unable to reach the PA team between 6 am and 5 pm, please page me at [phone] At all other times, or if urgent, please page the orthopaedic on-call resident at: [phone] for [facility] patients [phone] for [facility] patients [id number] for [facility] patients [id number] for [facility] patients [id number] for [facility] patients [facility] 04-03-2025 Note HNO ID: [id number] Author: IVANIA FINCH RN Service: Care Management Author Type: Registered Nurse Type: Care Mgt Initial Assessment Filed: 04/03/2025 15:30 Note Text: CARE MANAGEMENT: ASSESSMENT AND DISCHARGE PLAN SERVICE DATE: April 03, 2025 SERVICE TIME: 3:28 pm PCP: Wojciech Treviño MD, DO Primary Contact: Extended Emergency Contact Information Primary Emergency Contact: Nickolas Wolf Address: [address] [place] [address] [facility] Mobile Relation: Spouse Secondary Emergency Contact: Lesia Gonzalez Address: [address] [place] Relation: Daughter Admission Status: Inpatient Insurance Provider: MEDICARE A AND B Discharge Planning requested by: Per Department Practice Potential Transition Plans Home Advance Directives 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 to Assist with AD Completion: Yes Action: Education Provided Current Living Arrangements and Support Lives with: Spouse/significant other Type of Residence: Private Residence (House) Support: Spouse/significant other How do you manage to accomplish the following: Independent: Ambulation, Bathe/Shower, Dress, Meals/Meal Prep, Going to the bathroom, Medication Management, Transportation to appointments/community Current Services/Equipment Current Post-Acute Service(s): DME Current DME Type: Walker, Wheelchair-manual Discharge Planning Patient Goal(s): General wellness, Be able to go home [place] Choice Explained: [place] Given: No Reason Not Given: No placements necessary Are you interested in bedside delivery of your medications? Yes Discharge Planning Participant(s): Patient Needs Prior to Discharge: Needs Prior to Discharge: To Be Determined, Discharge Prescriptions Post-Acute Discharge Plan: ARTHRODESIS MIDTARSAL MULTIPLE/TRANSVERSE This RNCM met with the patient at the bedside to complete this assessment. RNCM confirmed the patient's demographics. The patient lives with her . The patient is independent in his/her ADLs and IADLs, and drives. The patient states her will be providing transport at discharge. DME: wheelchair and walker. The patient denies any barriers with obtaining medication. The patient states he/she feel safe at home and denies safety, financial, and social concerns at this time.The patient denied any additional needs at this time. CM to remain available. DME: None identified by patient Community Services: None Identified by patient Anticipated Needs: Home with No Needs A member of the care management team will follow and remain available for the patient's needs. SIGNATURE: Ivania Finch RN PATIENT NAME: Jesus Wolf DATE: April 03, 2025 TIME: 3:26 PM [facility] 04-03-2025 Note HNO ID: [id number] Author: RAMESH OGDEN AA Service: ? Author Type: Solar Sales Specialist Type: Anesthesia Procedure Notes Filed: 04/03/2025 09:40 Note Text: ANESTHESIOLOGY PROCEDURE NOTE Airway General Information Procedure Start Time/Medication Administration: 04/03/2025 9:29 AM Procedure End Time: 04/03/2025 9:29 AM Patient location during procedure: OR Timeout Performed Pre-procedure: timeout performed Consent Obtained: Yes Patient identity confirmed: arm band and patient Staffing Anesthesiologist: Surendra Montemayor MD CAA: Ramesh Ogden AA Performed by: MOISE Indications and Patient Condition Indications for airway management: anesthesia Preoxygenated: yes anesthesia circuit Patient position: sniffing Method: asleep Cricoid Pressure: No Manual In-Line Stabilization: Yes Difficult Mask: No Final Airway Details Final airway type: endotracheal airwayFinal Endotracheal Airway: ETT Cuffed: yes Successful intubation technique: video laryngoscopy Devices used: [employer] Endotracheal tube insertion site: oral Blade size: #4 ETT size (mm): 7.0 Measured from: lips Measurement (cm): 22 Placement verified by: capnometry Cormack-Lehane Classification: grade IIa - partial view of glottis Number of attempts at approach: 1 Failed airway: no Unrecognized esophageal intubation: no Airway not difficult Medications Administered lidocaine mucosal liquid 4% (XYLOCAINE) - MUCOUS MEMBRANE (TOPICAL MOUTH AND THROAT) 5 mL - 04/03/2025 9:29:00 AM SIGNATURE: ARPAN Julian PATIENT NAME: Jesus Wolf DATE: April 03, 2025 TIME: 9:39 AM CSN: [id number] [facility] 04-03-2025 Note HNO ID: [id number] Author: SURENDRA MONTEMAYOR MD Service: Anesthesiology Author Type: Anesthesiologist Type: Anesthesia Procedure Notes Filed: 04/03/2025 09:11 Note Text: ANESTHESIOLOGY PROCEDURE NOTE Peripheral Nerve Block General Information Procedure Start Time/Medication Administration: 04/03/2025 9:00 AM Procedure End time: 04/03/2025 9:03 AM Patient location during procedure: pre-op Timeout Performed Pre-procedure: timeout performed Consent Obtained: Yes Patient identity confirmed: arm band and patient Reason for block: post-op pain management/at surgeon's request Staffing Anesthesiologist: Surendra Montemayor MD Resident: Franci Toth MD Performed by: anesthesiologist and resident Preparation Sterility Preparation: hand hygiene performed prior to procedure, sterile gloves, drapes, and procedure tray, surgical cap used, mask used, sterile drape used during line insertion, skin prep agent completely dried prior to procedure Sterility Technique Not Completely Performed Due to Extreme Emergency: No Site Prep: Chloraprep Pre-Procedure Neuro Exam Location: RLE Procedure Details Patient Position: supine Monitoring: Pulse OX, EKG and NIBP Block Type Lower Extremity: distal femoral (adductor canal) and saphenous Laterality: right Injection Technique: single-shot Ultrasound Guided: Yes Image in Chart: Yes Local Infiltration: Yes Needle Needle Type: echogenic Needle Gauge: 22 G Needle Length: 100 mm Needle Localization: ultrasound Assessment Injection assessment: negative aspiration, no paresthesia on injection, incremental injection and local visualized surrounding nerve on ultrasound Medications Administered dexamethasone sodium phosphate injection (DECADRON) - peripheral nerve block 4 mg - 04/03/2025 9:00:00 AM ropivacaine (PF) 5 mg/mL (0.5 %) injection (NAROPIN) - peripheral nerve block 20 mL - 04/03/2025 9:00:00 AM Comments For this procedure, I was physically present for this entire procedure. Surendra Montemayor MD SIGNATURE: Surendra Montemayor MD PATIENT NAME: Jesus Wolf DATE: April 03, 2025 TIME: 9:08 AM CSN: [id number] [facility] 04-03-2025 Note HNO ID: [id number] Author: SURENDRA MONTEMAYOR MD Service: Anesthesiology Author Type: Anesthesiologist Type: Anesthesia Procedure Notes Filed: 04/03/2025 09:08 Note Text: ANESTHESIOLOGY PROCEDURE NOTE Peripheral Nerve Block General Information Procedure Start Time/Medication Administration: 04/03/2025 8:47 AM Procedure End time: 04/03/2025 8:59 AM Patient location during procedure: pre-op Timeout Performed Pre-procedure: timeout performed Consent Obtained: Yes Patient identity confirmed: arm band and patient Reason for block: post-op pain management/at surgeon's request Staffing Anesthesiologist: Surendra Montemayor MD Resident: Franci Toth MD Performed by: anesthesiologist and resident Preparation Sterility Preparation: hand hygiene performed prior to procedure, sterile gloves, drapes, and procedure tray, surgical cap used, mask used, sterile drape used during line insertion, skin prep agent completely dried prior to procedure Site Prep: Chloraprep Pre-Procedure Neuro Exam Location: RLE Procedure Details Patient Position: left lateral decubitus Monitoring: Pulse OX, EKG and NIBP Block Type Lower Extremity: popliteal Laterality: right Injection Technique: single-shot Ultrasound Guided: Yes Image in Chart: Yes Local Infiltration: Yes Needle Needle Type: echogenic Assessment Injection assessment: negative aspiration, no paresthesia on injection, incremental injection and local visualized surrounding nerve on ultrasound Medications Administered dexamethasone sodium phosphate injection (DECADRON) - peripheral nerve block 4 mg - 04/03/2025 8:47:00 AM ropivacaine (PF) 5 mg/mL (0.5 %) injection (NAROPIN) - peripheral nerve block 20 mL - 04/03/2025 8:47:00 AM midazolam (PF) injection (VERSED) - INTRAVENOUS 2 mg - 04/03/2025 8:47:00 AM Comments For this procedure, I was physically present for this entire procedure. Surendra Montemayor MD SIGNATURE: Surendra Montemayor MD PATIENT NAME: Jesus Wolf DATE: April 03, 2025 TIME: 9:05 AM CSN: [id number] [facility] 03-23-2025 Note HNO ID: [id number] Author: COCO GUZMAN RN Service: ? Author Type: Registered Nurse Type: Progress Notes Filed: 03/23/2025 12:38 Note Text: Since your last infusion, have [...] No New rash or open sores? No Pt is having foot surgery on 04/03/25. Advised pt to ask her surgeon for clearance to resume her infusions post op. [facility] 03-20-2025 Telephone encounter Note Please do not send messages back to this triage nurse. Please route to your appropriate assigned pool for [facility]. [facility] 03-20-2025 Miscellaneous Notes Please do not send messages back to this triage nurse. Please route to your appropriate assigned pool for [facility]. Pt is identified by name and birthdate: Yes Patient calls wanting to know if she can still have Infusion? 03/23/2025 [facility] M32.9 MEDICARE A/B DR LANEY ALICEA STAFFING, X 8 weeks 04/03/2025 - ORTHO PROCEDURE Surgeon Role Service Aiden Hall MD Primary Orthopedics Procedure: ARTHRODESIS MIDTARSAL MULTIPLE/TRANSVERSE Laterality Anesthesia Op Region Right General Foot Procedure: ARTHRODESIS FOOT Laterality Anesthesia Op Region Right General Foot Procedure: ARTHRODESIS SUBTALAR Laterality Anesthesia Op Region Right General Foot Procedure: LENGTHENING CORD HEEL Laterality Anesthesia Op Region Right General Foot Procedure: FLUOROSCOPY UP TO 1 HOUR PHYSCIAN OR OTHER QUAL PROF TIME,SEPARATE PROCEDURE Laterality Anesthesia Op Region Right General Foot documented in this encounter [facility] 03-20-2025 Telephone encounter Note Pt is identified by name and birthdate: Yes Patient calls wanting to know if she can still have Infusion? 03/23/2025 [facility] Infusion [facility] M32.9 MEDICARE A/B DR LANEY ALICEA STAFFING, X 8 weeks 04/03/2025 - ORTHO PROCEDURE Surgeon Role Service Aiden Hall MD Primary Orthopedics Procedure: ARTHRODESIS MIDTARSAL MULTIPLE/TRANSVERSE Laterality Anesthesia Op Region Right General Foot Procedure: ARTHRODESIS FOOT Laterality Anesthesia Op Region Right General Foot Procedure: ARTHRODESIS SUBTALAR Laterality Anesthesia Op Region Right General Foot Procedure: LENGTHENING CORD HEEL Laterality Anesthesia Op Region Right General Foot Procedure: FLUOROSCOPY UP TO 1 HOUR PHYSCIAN OR OTHER QUAL PROF TIME,SEPARATE PROCEDURE Laterality Anesthesia Op Region Right General Foot [facility] 03-20-2025 Instructions Beverly Glass APRN.RESPIRATORY CLINICIAN - 03/20/2025 9:01 AM EDT PATIENT PREOPERATIVE INSTRUCTIONS Aiden Hall has scheduled you for your procedure at this surgery center: [facility]: [phone] --[address] [place] [address]. On your scheduled day of surgery, please report to Patient Registration, ground floor Please read below carefully for your personalized instructions. Dietary Restrictions: - No solid food after midnight. - You may have 12 ounces of clear liquids (water, clear juices such as apple juice or gatorade, carbonated beverages, clear tea, black coffee, jello) until 2 hours before scheduled arrival at facility. - Do not drink any alcohol after midnight the night before your surgery. - No Milk/Dairy - No Pulp Juices Medications: Unless instructed differently below, stay on all of your medications until your surgery. If you start any new medications after today's visit, please contact your surgeon. Pre-Surgery Med Instructions Medication Instructions alendronate (FOSAMAX) 70 mg tablet Do not take the day of surgery Mesalamine (LIALDA) 1.2 gram EC tablet Do not take the day of surgery colestipol (COLESTID) 1 gram tablet Do not take the day of surgery ELIQUIS 5 mg tab(s) Hold 3 days before surgery. furosemide (LASIX) 40 mg tablet Do not take the day of surgery belimumab infusion - please follow prescribing provider's recommendation. (Patient has contacted this physician, infusion scheduled for tomorrow, if she has not heard back prior to appointment she understands to get clarification at infusion center prior to receiving med) If you start any new medications after today's visit, please contact the surgeon's office. If you are currently using a gome-jrf-oigf injectable or oral medication for diabetes or weight loss such as Dulaglutide (Trulicity), Exenatide (Byetta, Bydureon), Liraglutide (Victoza, Saxenda), Semaglutide (Ozempic, Wegovy, Rybelsus), or Tirzepatide (Mounjaro), the medicine should be stopped at least 7 days before surgery. These medicines can cause food to remain in your stomach for a very long time and increase the risks from surgery and anesthesia. Not stopping the medication for a long enough time may result in your surgery being rescheduled. Blood Thinning Medications: - Hold NSAIDS (Ibuprofen, Advil, Aleve, Motrin, Celebrex, Mobic, etc.) 7 days before surgery, as directed by your surgeon. - Hold Aspirin 7 days before surgery, as directed by your surgeon. - Hold all herbals and dietary supplements 7 days before surgery. - You may take Tylenol (Acetaminophen) or any of your pain medications that do not contain aspirin or NSAIDS as needed. ELIQUIS 5 mg tab(s) Hold 3 days before surgery. Important Reminders: - If you are prescribed inhalers for breathing, continue using them. - If you use CPAP/BIPAP, and will be staying over night, bring the machine with you to the surgery center. - If you use home O2, please bring with you to the surgery center - Please abstain from cannabis use for one week prior to surgery - Candy, mints, gum, and tobacco products are NOT permitted the [...] Procedures: - YOU MUST HAVE A RESPONSIBLE RN IMAGING TAKE YOU HOME. A PILE DRIVER OPERATOR OR PLANNING DIVISION SUPERINTENDENT CANNOT BE MADE A RESPONSIBLE RN IMAGING. - We recommend that a responsible person stays with you overnight to take care of you. - You cannot stay in a hotel alone after outpatient surgery. You will not be permitted to have your surgery, if you do not have someone to take care of you. Arrival Time for Surgery: - The Surgery Center or hospital where you are having surgery will call the afternoon before surgery (or Thursday for Thursday surgery) with a scheduled arrival time. - If you have not heard by 4 pm, please contact the surgery center above. Please be aware that emergency situations arise, which may delay or change your surgical time. If this happens, we will notify you as soon as possible and regret any inconvenience. If you already have an Advance Directive, please fax a copy to [phone] or email to for it to be [...] and scanned into your chart that day. documented in this encounter [facility] 03-20-2025 History and physical note HISTORY AND PHYSICAL EXAMINATION SERVICE DATE: 03/20/2025 SERVICE TIME: 9:05 AM PRIMARY CARE PHYSICIAN: Wojciech Treviño MD, DO REASON FOR VISIT: Jesus Wolf is a 70 year old female who is scheduled for Right - ARTHRODESIS MIDTARSAL MULTIPLE/TRANSVERSE Right - ARTHRODESIS FOOT Right - ARTHRODESIS SUBTALAR Right - LENGTHENING CORD HEEL Right - FLUOROSCOPY UP TO 1 HOUR PHYSCIAN OR OTHER QUAL PROF TIME,SEPARATE PROCEDURE at the request of Dr. Aiden Hall for consultation. My final recommendation will be communicated back to the requesting physician by way of shared medical record or letter. Assessment Essential hypertension Assessment: stable and compliant with current medications Last 5 Encounter BP Readings: Date: BP: 03/20/2025 108/73 01/26/2025 103/69 12/22/2024 118/70 12/01/2024 141/78 11/16/2024 136/64 Mixed hyperlipidemia Assessment: stable with current medication regimen Atrial fibrillation (HCC) Assessment: stable,asymptomatic, RRR today Follows with cardiology, Dr. Conway, Last Office Visit: 12/07/24: Paroxysmal atrial fibrillation, status post radiofrequency ablation with pulmonary vein isolation at [facility] that was done 3 times started in 2019 and ended in 2023 with recurrences while on amiodarone therapy. Currently anticoagulated with Eliquis and she is also status post watchman's device March 2024. 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 Pulmonary hypertension (HCC) Assessment: stable, asymptomatic RVSP 50-55mmHg on PHYLLIS 09/19/24 Thoracic ascending aortic aneurysm (HCC) Assessment: stable, follows regularly with imaging PHYLLIS 09/19/24 shows: Mild aortic root dilatation. The aortic root is 4.4 cm Chronic congestive heart failure (HCC) Assessment: Appears euvolemic and well compensated today. EF 55-60% on PHYLLIS 09/19/24 Follows with cardiology, per Abisai Barraza () on 01/27/25: According to ACC/AHA guidelines, a patient with recent favorable cardiovascular testing without change in symptoms may proceed to operating room without additional ischemic evaluation. Patient with functional capacity right at 4 METS with only minor clinical markers proceeding with intermediate risk surgery-no need for ischemic evaluation. Plan: At this time, no prohibitive cardiovascular risk to proceed with much-needed surgical procedure. She may interrupt DOAC 48 hours prior to procedure, resume once hemostasis obtained. Abisai Barraza MSN, [employer] PROFESSOR-RESPIRATORY CLINICIAN, PMHNP-BC (Our [facility] office later clarified that patient may hold eliquis for 72 hours - TE 03/03/25) Sleep apnea Assessment: cannot tolerate CPAP Stage 3 chronic kidney disease (HCC) Assessment: Stable, asymptomatic BUN Date Value Ref Range Status 11/16/2024 15 7 - 21 mg/dL Final 08/11/2024 24 (H) 7 - 21 mg/dL Final 06/13/2024 20 7 - 21 mg/dL Final Creatinine Date Value Ref Range Status 11/16/2024 1.04 (H) 0.58 - 0.96 mg/dL Final 08/11/2024 1.03 (H) 0.58 - 0.96 mg/dL Final 06/13/2024 1.04 (H) 0.58 - 0.96 mg/dL Final Hypothyroidism Assessment: stable with current medication regimen Hyperparathyroid (HCC) Assessment: Calcium, Total Date Value Ref Range Status 11/16/2024 9.6 8.5 - 10.2 mg/dL Final Anemia Assessment: Stable. Denies bleeding. Hemoglobin (g/dL) Date Value 11/16/2024 15.0 05/20/2024 13.8 12/28/2023 13.8 05/16/2021 14.0 03/25/2021 15.0 12/21/2020 9.6 SLE (systemic lupus erythematosus) (HCC) Assessment: in remission on meds, follows with rheumatology Obesity, Class III, BMI >= 40 Assessment: Body mass index is 41.43 kg/m . History of DVT (deep vein thrombosis) Assessment: currently anticoagulated with eliquis, managed by cardiology ANESTHESIA FINDINGS: Intubation History: No history of difficult intubation Significant Anesthesia Considerations: none Airway History: No history of difficult airway Robert Activity Status Index: METS: DASI Score: 0 (Limited to wheelchair because of right foot) Patient confirms chest pain or undue shortness of breath with the above physical activity. Patient is limited most or all of the time (uses scooter, mobility device). STOP-Bang Score: Has or is being treated for high blood pressure BMI greater than 35 kg/m^2 Patient over 50 years old Denies snoring loudly Denies feeling tired, fatigued, or sleepy during the daytime Has not been observed to stop breathing or choking/gasping during sleep Does not have a large neck Non-male patient STOP-Bang Score: 3 (MONI does not use CPAP) [id number] Score: Age: 65-74 Sex: female CHF history: Yes Hypertension history: Yes Stroke/TIA/thromboembolism history: No Vascular disease history: No Diabetes history: No [id number] Score: 4 ARISCAT Score: Age: 51-80 Preoperative SpO2: >=96% Preoperative anemia: No Duration of surgery: >3 hrs Emergency procedure: No ARISCAT Score: I - PHYSICAL EVALUATION AIRWAY Patient intubated: No. Tracheostomy tube not present Mallampati: II. TM distance: >3 FB. Neck ROM: full ROM without neurological symptoms. Mouth opening: adequate. Short neck: no. Thick neck: no Robbins present: no Lip Bite Test: II Microretrognathia/Micronagthia/Rec essed Chin: No DENTAL Dental findings: teeth intact. II - ANESTHESIA PLAN Anesthetic plan additional comments: *[facility]/TCI - anesthesia choice. Beta Girish Monitoring Plan Post Procedure Analgesic Plan Prepared for surgery: This patient is optimally prepared for surgery. CONSULTS: Patient does not require consults for optimization at this time. 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 Patient denies any chest pain, shortness of breath, palpitations, fever/chills, nausea/vomiting, fatigue, or diarrhea. REVIEW OF SYSTEMS: PAIN ASSESSMENT: General: No weight loss, malaise or fevers. Neuro: No history of TIA's, stroke, PARQUETRY LAYER tumor, impaired sensorium, hemiplegia, paraplegia or quadraplegia. No neurological symptoms or problems. Respiratory: Positive for MONI, Negative for Current cough, Pneumonia within 6 weeks (date) Cardiovascular: Positive for: HTN, HLD, TAA, CHF, afib, pulm HTN, h/o DVT, Negative for Chest Pain GI: No history of GI symptoms or problems. No history of esophageal varices, recent ascites, or ETOH greater than 2 drinks per day. : membranous glomerulonephritis, CKD TURNAROUND PLANNER: Negative for abnormal vaginal bleeding, abnormal vaginal discharge. : Denies, Patient's last menstrual period was 07/17/2011 (within years). Endocrine: hypothyroidism , hyperparathyroidism Immunology: Lupus Hematology: h/o DVT, anemia, anticoagulated Oncology: No history of CA metastasis, chemo within 30 days, or radiotherapy within 90 days. Has not lost 10% of body wt in 6 months. No history of oncological symptoms or problems. Implanted Devices: watchman Psych: No history of psychiatric symptoms or problems. Marijuana use: No Musculoskeletal: foot pain, Body mass index is 41.43 kg/m . Skin: Negative for lesions, rash and itching. The patient has the following: ACTIVE PROBLEM [...] Plantar Nerve Neuralgia, Neuritis, and Radiculitis, Unspecified Osteoarthrosis of Ankle and Foot, Left Synovitis of Left Foot Synovitis of Right Foot Vocal Cord Edema Primary Osteoarthritis of Both Feet Synovitis of Foot Conjunctivitis Keratopathy Obesity, Class III, BMI >= 40 Hypothyroidism Chronic Congestive Heart Failure (Hcc) Status Post Right Hip Replacement S/P Total Hip Arthroplasty Mixed Hyperlipidemia Obesity, Class II, Bmi 35-39.9 Thoracic Ascending Aortic Aneurysm Hypercalcemia Hyperparathyroid (Hcc) Thin Blood Pulmonary Hypertension (Hcc) Pain in Left Foot Pain in Right Foot Covid Immunization Dates This patient has no relevant Health Maintenance data. PAST MEDICAL HISTORY Diagnosis Date Atrial fibrillation (HCC) on coumadin Herniated intervertebral disk HTN (hypertension) Hyperlipemia Kidney disease MONI (obstructive sleep apnea) no longer using CPAP since 60 lb weight loss Other acute pancreatitis with uninfected necrosis (HCC) SLE (systemic lupus erythematosus) (HCC) PAST SURGICAL HISTORY Procedure Laterality Date APPENDECTOMY CARPAL TUNNEL RIGHT WRIST surgical correction COLONOSCOPY 05/10/2019 [facility] COLONOSCOPY GEN ANES 07/23/2020 Dr. Frances/Diverticulosis/Hemorrhoids/ Ulcerative Colitis/Rpt in 2 yrs. COLONOSCOPY SCREENING 03/2023 EGD EUS 01/11/2020 [facility] LASIK Right prior to [...] Never Smokeless tobacco: Never Vaping Use Vaping status: Never Used Substance Use Topics Alcohol use: Yes Comment: very rare Drug use: No Comment: denies tx for drug/alcohol abuse in the past. Prior to Admission medications as of 03/10/25 0923 Medication Sig Last Dose Taking alendronate (FOSAMAX) 70 mg tablet Take 1 tablet by mouth one time a week. In the morning with a full glass of water, on an empty stomach. Do not take anything else by mouth or lie down for the next 30 minutes. mupirocin (BACTROBAN) 2 % ointment Apply to affected area three times a day. Mesalamine (LIALDA) 1.2 gram EC tablet Take 4 tablets by mouth once daily. hydrOXYchloroQUINE (PLAQUENIL) 200 mg tablet take 1 tablet by mouth twice a day with food ferrous sulfate (IRON) 325 mg (65 mg iron) tablet Take 1 tablet by mouth once daily. colestipol (COLESTID) 1 gram tablet TAKE 3 TABLETS BY MOUTH TWICE DAILY pantoprazole DR (PROTONIX) 40 mg tablet Take 1 tablet by mouth twice daily amiodarone (PACERONE) 200 mg tablet Take 300 mg by mouth once daily. Patient reports 300 mg by mouth daily metoprolol succinate ER (TOPROL XL) 50 mg 24 hr tablet TAKE 1 TABLET BY MOUTH IN THE MORNING AND 2 TABLETS BY MOUTH IN THE EVENING ELIQUIS 5 mg tab(s) Take 5 mg by mouth twice daily. acetaminophen (TYLENOL) 500 mg tablet Take 1 tablet by mouth every 4 hours as needed for pain. adsuhwl-irvjdmnti-pyuglkj D3 500 mg-5 mcg (200 unit) per tablet Take 1 tablet by mouth three times daily. MV with Xgw-Qzbofmyx-Uexxwj (CENTRUM SILVER) 0.4 mg-300 mcg- 250 mcg [...] mg tablet Take 10 mg by mouth two times a day. Cholecalciferol, Vitamin D3, 2,000 unit cap Take by mouth once daily. vitamin b complex(B COMPLEX TAB) one daily multivitamins w-minerals/lut(CENTRUM SILVER TAB) Take one(1) tablet daily. No medication comments found. ALLERGIES Allergen [...] in area of shot Objective PHYSICAL EXAM: VITALS: BP 108/73 Pulse 75 Temp (Src) 98.2 (Oral) Resp 18 Ht 5' 7 (1.70m) Wt 264 lb 8.8 oz (120.0kg) SpO2 97[RA]% LMP 07/17/2011 BMI 41.42 kg/(m^2). General: Alert and oriented, No acute distress Skin: Normal color, no rash, no lesions. HEENT: EOM, pupils equal, round and reactive. Cardiovascular: Normal S1 & S2, no rubs, murmurs or gallops. No JVD. Pulse regular. Lungs: Normal breath sounds, no wheezes or crackles. Extremities: No deformity, no edema or tenderness, no joint swelling or clubbing. Neurological: Normal cognition Diagnostic tests reviewed for today's visit: Lab Value Units Date High Low HB 15.0 g/dL 11/16/2024 15.5 11.5 HCT 46.3 % 11/16/2024 46.0 36.0 WBC 7.24 k/uL 11/16/2024 11.00 3.70 PLT 272 k/uL 11/16/2024 400 150 NA 142 mmol/L 11/16/2024 144 136 K 4.5 mmol/L 11/16/2024 5.1 3.7 GLUC 86 mg/dL 11/16/2024 99 74 BUN 15 mg/dL 11/16/2024 21 7 CREAT 1.04 mg/dL 11/16/2024 0.96 0.58 PTSEC No results within date range. INR No results within date range. APTT No results within date range. ALT 45 U/L 11/16/2024 38 7 AST 41 U/L 11/16/2024 35 13 TBILI 0.5 mg/dL 11/16/2024 1.3 0.2 TSH No results within date range. Hemoglobin A1C (%) Date Value 12/06/2020 5.5 03/09/2019 5.5 Most recent EKG 01/29/25 Most recent Echo 09/19/24 Interpretation Summary PHYLLIS was done in the OR with anesthesia provided by anesthesia team Mild concentric left ventricular hypertrophy. Ejection Fraction = 55-60%. There is left ventricular diastolic dysfunction. The left atrium appears mildly dilated. Left atrial occlusive device is noted with excellent seal and no evidence by Doppler of any leaking segments The right ventricle is borderline dilated. Mild right ventricular systolic dysfunction. Mild aortic regurgitation. There is mild mitral regurgitation. There is mild tricuspid regurgitation. The right ventricular systolic pressure is 50 - 55 mmHg. Right ventricular systolic pressure is consistent with moderate pulmonary hypertension. Mild aortic root dilatation. The aortic root is 4.4 cm Most recent stress test 08/15/22 IMPRESSION: Normal Lexiscan Myoview cardiac perfusion stress test. No evidence of ischemia or myocardial infarction by perfusion imaging. Normal left ventricular systolic function, ejection fraction 62%. No previous study available for comparison. Instructions Given to Patient: Instructions located in the after visit summary. Patient given verbal and written preop instructions and voices comprehension and compliance. SIGNATURE: Beverly Glass APRN.JOHNATHAN PATIENT NAME: Jesus Wolf DATE: 03/20/2025 TIME: 9:38 AM T [facility] 03-20-2025 History and physical note HISTORY AND PHYSICAL EXAMINATION SERVICE DATE: 03/20/2025 SERVICE TIME: 9:05 AM PRIMARY CARE PHYSICIAN: Wojciech Treviño MD, DO REASON FOR VISIT: Jesus Wolf is a 70 year old female who is scheduled for Right - ARTHRODESIS MIDTARSAL MULTIPLE/TRANSVERSE Right - ARTHRODESIS FOOT Right - ARTHRODESIS SUBTALAR Right - LENGTHENING CORD HEEL Right - FLUOROSCOPY UP TO 1 HOUR PHYSCIAN OR OTHER QUAL PROF TIME,SEPARATE PROCEDURE at the request of Dr. Aiden Hall for consultation. My final recommendation will be communicated back to the requesting physician by way of shared medical record or letter. Assessment Essential hypertension Assessment: stable and compliant with current medications Last 5 Encounter BP Readings: Date: BP: 03/20/2025 108/73 01/26/2025 103/69 12/22/2024 118/70 12/01/2024 141/78 11/16/2024 136/64 Mixed hyperlipidemia Assessment: stable with current medication regimen Atrial fibrillation (HCC) Assessment: stable,asymptomatic, RRR today Follows with cardiology, Dr. Conway, Last Office Visit: 12/07/24: Paroxysmal atrial fibrillation, status post radiofrequency ablation with pulmonary vein isolation at [facility] that was done 3 times started in 2019 and ended in 2023 with recurrences while on amiodarone therapy. Currently anticoagulated with Eliquis and she is also status post watchman's device March 2024. 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 Pulmonary hypertension (HCC) Assessment: stable, asymptomatic RVSP 50-55mmHg on PHYLLIS 09/19/24 Thoracic ascending aortic aneurysm (HCC) Assessment: stable, follows regularly with imaging PHYLLIS 09/19/24 shows: Mild aortic root dilatation. The aortic root is 4.4 cm Chronic congestive heart failure (HCC) Assessment: Appears euvolemic and well compensated today. EF 55-60% on PHYLLIS 09/19/24 Follows with cardiology, per Abisai Barraza () on 01/27/25: According to ACC/AHA guidelines, a patient with recent favorable cardiovascular testing without change in symptoms may proceed to operating room without additional ischemic evaluation. Patient with functional capacity right at 4 METS with only minor clinical markers proceeding with intermediate risk surgery-no need for ischemic evaluation. Plan: At this time, no prohibitive cardiovascular risk to proceed with much-needed surgical procedure. She may interrupt DOAC 48 hours prior to procedure, resume once hemostasis obtained. Abisai Barraza MSN, [employer] H[employer]ORY PROFESSOR-RESPIRATORY CLINICIAN, PMHNP-BC (Our [facility] office later clarified that patient may hold eliquis for 72 hours - TE 03/03/25) Sleep apnea Assessment: cannot tolerate CPAP Stage 3 chronic kidney disease (HCC) Assessment: Stable, asymptomatic BUN Date Value Ref Range Status 11/16/2024 15 7 - 21 mg/dL Final 08/11/2024 24 (H) 7 - 21 mg/dL Final 06/13/2024 20 7 - 21 mg/dL Final Creatinine Date Value Ref Range Status 11/16/2024 1.04 (H) 0.58 - 0.96 mg/dL Final 08/11/2024 1.03 (H) 0.58 - 0.96 mg/dL Final 06/13/2024 1.04 (H) 0.58 - 0.96 mg/dL Final Hypothyroidism Assessment: stable with current medication regimen Hyperparathyroid (HCC) Assessment: Calcium, Total Date Value Ref Range Status 11/16/2024 9.6 8.5 - 10.2 mg/dL Final Anemia Assessment: Stable. Denies bleeding. Hemoglobin (g/dL) Date Value 11/16/2024 15.0 05/20/2024 13.8 12/28/2023 13.8 05/16/2021 14.0 03/25/2021 15.0 12/21/2020 9.6 SLE (systemic lupus erythematosus) ([facility]) Assessment: in remission on meds, follows with rheumatology Obesity, Class III, BMI >= 40 Assessment: Body mass index is 41.43 kg/m . History of DVT (deep vein thrombosis) Assessment: currently anticoagulated with eliquis, managed by cardiology ANESTHESIA FINDINGS: Intubation History: No history of difficult intubation Significant Anesthesia Considerations: none Airway History: No history of difficult airway Robert Activity Status Index: METS: DASI Score: 0 (Limited to wheelchair because of right foot) Patient confirms chest pain or undue shortness of breath with the above physical activity. Patient is limited most or all of the time (uses scooter, mobility device). STOP-Bang Score: Has or is being treated for high blood pressure BMI greater than 35 kg/m^2 Patient over 50 years old Denies snoring loudly Denies feeling tired, fatigued, or sleepy during the daytime Has not been observed to stop breathing or choking/gasping during sleep Does not have a large neck Non-male patient STOP-Bang Score: 3 (MONI does not use CPAP) [id number] Score: Age: 65-74 Sex: female CHF history: Yes Hypertension history: Yes Stroke/TIA/thromboembolism history: No Vascular disease history: No Diabetes history: No [id number] Score: 4 ARISCAT Score: Age: 51-80 Preoperative SpO2: >=96% Preoperative anemia: No Duration of surgery: >3 hrs Emergency procedure: No ARISCAT Score: I - PHYSICAL EVALUATION AIRWAY Patient intubated: No. Tracheostomy tube not present Mallampati: II. TM distance: >3 FB. Neck ROM: full ROM without neurological symptoms. Mouth opening: adequate. Short neck: no. Thick neck: no Robbins present: no Lip Bite Test: II Microretrognathia/Micronagthia/Rec essed Chin: No DENTAL Dental findings: teeth intact. II - ANESTHESIA PLAN Anesthetic plan additional comments: *PACC/TCI - anesthesia choice. Beta Girish Monitoring Plan Post Procedure Analgesic Plan Prepared for surgery: This patient is optimally prepared for surgery. CONSULTS: Patient does not require consults for optimization at this time. 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 Patient denies any chest pain, shortness of breath, palpitations, fever/chills, nausea/vomiting, fatigue, or diarrhea. REVIEW OF SYSTEMS: PAIN ASSESSMENT: General: No weight loss, malaise or fevers. Neuro: No history of TIA's, stroke, PARQUETRY LAYER tumor, impaired sensorium, hemiplegia, paraplegia or quadraplegia. No neurological symptoms or problems. Respiratory: Positive for MONI, Negative for Current cough, Pneumonia within 6 weeks (date) Cardiovascular: Positive for: HTN, HLD, TAA, CHF, afib, pulm HTN, h/o DVT, Negative for Chest Pain GI: No history of GI symptoms or problems. No history of esophageal varices, recent ascites, or ETOH greater than 2 drinks per day. : membranous glomerulonephritis, CKD TURNAROUND PLANNER: Negative for abnormal vaginal bleeding, abnormal vaginal discharge. : Denies, Patient's last menstrual period was 07/17/2011 (within years). Endocrine: hypothyroidism , hyperparathyroidism Immunology: Lupus Hematology: h/o DVT, anemia, anticoagulated Oncology: No history of CA metastasis, chemo within 30 days, or radiotherapy within 90 days. Has not lost 10% of body wt in 6 months. No history of oncological symptoms or problems. Implanted Devices: watchman Psych: No history of psychiatric symptoms or problems. Marijuana use: No Musculoskeletal: foot pain, Body mass index is 41.43 kg/m . Skin: Negative for lesions, rash and itching. The patient has the following: ACTIVE PROBLEM [...] Plantar Nerve Neuralgia, Neuritis, and Radiculitis, Unspecified Osteoarthrosis of Ankle and Foot, Left Synovitis of Left Foot Synovitis of Right Foot Vocal Cord Edema Primary Osteoarthritis of Both Feet Synovitis of Foot Conjunctivitis Keratopathy Obesity, Class III, BMI >= 40 Hypothyroidism Chronic Congestive Heart Failure (Hcc) Status Post Right Hip Replacement S/P Total Hip Arthroplasty Mixed Hyperlipidemia Obesity, Class II, Bmi 35-39.9 Thoracic Ascending Aortic Aneurysm Hypercalcemia Hyperparathyroid (Hcc) Thin Blood Pulmonary Hypertension (Hcc) Pain in Left Foot Pain in Right Foot Covid Immunization Dates This patient has no relevant Health Maintenance data. PAST MEDICAL HISTORY Diagnosis Date Atrial fibrillation (HCC) on coumadin Herniated intervertebral disk HTN (hypertension) Hyperlipemia Kidney disease MONI (obstructive sleep apnea) no longer using CPAP since 60 lb weight loss Other acute pancreatitis with uninfected necrosis (HCC) SLE (systemic lupus erythematosus) (HCC) PAST SURGICAL HISTORY Procedure Laterality Date APPENDECTOMY CARPAL TUNNEL RIGHT WRIST surgical correction COLONOSCOPY 05/10/2019 [facility] COLONOSCOPY GEN ANES 07/23/2020 Dr. Frances/Diverticulosis/Hemorrhoids/ Ulcerative Colitis/Rpt in 2 yrs. COLONOSCOPY SCREENING 03/2023 EGD EUS 01/11/2020 [facility] LASIK Right prior to [...] Never Smokeless tobacco: Never Vaping Use Vaping status: Never Used Substance Use Topics Alcohol use: Yes Comment: very rare Drug use: No Comment: denies tx for drug/alcohol abuse in the past. Prior to Admission medications as of 03/10/25 0923 Medication Sig Last Dose Taking alendronate (FOSAMAX) 70 mg tablet Take 1 tablet by mouth one time a week. In the morning with a full glass of water, on an empty stomach. Do not take anything else by mouth or lie down for the next 30 minutes. mupirocin (BACTROBAN) 2 % ointment Apply to affected area three times a day. Mesalamine (LIALDA) 1.2 gram EC tablet Take 4 tablets by mouth once daily. hydrOXYchloroQUINE (PLAQUENIL) 200 mg tablet take 1 tablet by mouth twice a day with food ferrous sulfate (IRON) 325 mg (65 mg iron) tablet Take 1 tablet by mouth once daily. colestipol (COLESTID) 1 gram tablet TAKE 3 TABLETS BY MOUTH TWICE DAILY pantoprazole DR (PROTONIX) 40 mg tablet Take 1 tablet by mouth twice daily amiodarone (PACERONE) 200 mg tablet Take 300 mg by mouth once daily. Patient reports 300 mg by mouth daily metoprolol succinate ER (TOPROL XL) 50 mg 24 hr tablet TAKE 1 TABLET BY MOUTH IN THE MORNING AND 2 TABLETS BY MOUTH IN THE EVENING ELIQUIS 5 mg tab(s) Take 5 mg by mouth twice daily. acetaminophen (TYLENOL) 500 mg tablet Take 1 tablet by mouth every 4 hours as needed for pain. lndalxt-heqrrkbdw-ocobqep D3 500 mg-5 mcg (200 unit) per tablet Take 1 tablet by mouth three times daily. MV with Kgq-Kxdvciqm-Siytbz (CENTRUM SILVER) 0.4 mg-300 mcg- 250 mcg [...] mg tablet Take 10 mg by mouth two times a day. Cholecalciferol, Vitamin D3, 2,000 unit cap Take by mouth once daily. vitamin b complex(B COMPLEX TAB) one daily multivitamins w-minerals/lut(CENTRUM SILVER TAB) Take one(1) tablet daily. No medication comments found. ALLERGIES Allergen [...] in area of shot Objective PHYSICAL EXAM: VITALS: BP 108/73 Pulse 75 Temp (Src) 98.2 (Oral) Resp 18 Ht 5' 7 (1.70m) Wt 264 lb 8.8 oz (120.0kg) SpO2 97[RA]% LMP 07/17/2011 BMI 41.42 kg/(m^2). General: Alert and oriented, No acute distress Skin: Normal color, no rash, no lesions. HEENT: EOM, pupils equal, round and reactive. Cardiovascular: Normal S1 & S2, no rubs, murmurs or gallops. No JVD. Pulse regular. Lungs: Normal breath sounds, no wheezes or crackles. Extremities: No deformity, no edema or tenderness, no joint swelling or clubbing. Neurological: Normal cognition Diagnostic tests reviewed for today's visit: Lab Value Units Date High Low HB 15.0 g/dL 11/16/2024 15.5 11.5 HCT 46.3 % 11/16/2024 46.0 36.0 WBC 7.24 k/uL 11/16/2024 11.00 3.70 PLT 272 k/uL 11/16/2024 400 150 NA 142 mmol/L 11/16/2024 144 136 K 4.5 mmol/L 11/16/2024 5.1 3.7 GLUC 86 mg/dL 11/16/2024 99 74 BUN 15 mg/dL 11/16/2024 21 7 CREAT 1.04 mg/dL 11/16/2024 0.96 0.58 PTSEC No results within date range. INR No results within date range. APTT No results within date range. ALT 45 U/L 11/16/2024 38 7 AST 41 U/L 11/16/2024 35 13 TBILI 0.5 mg/dL 11/16/2024 1.3 0.2 TSH No results within date range. Hemoglobin A1C (%) Date Value 12/06/2020 5.5 03/09/2019 5.5 Most recent EKG 01/29/25 Most recent Echo 09/19/24 Interpretation Summary PHYLLIS was done in the OR with anesthesia provided by anesthesia team Mild concentric left ventricular hypertrophy. Ejection Fraction = 55-60%. There is left ventricular diastolic dysfunction. The left atrium appears mildly dilated. Left atrial occlusive device is noted with excellent seal and no evidence by Doppler of any leaking segments The right ventricle is borderline dilated. Mild right ventricular systolic dysfunction. Mild aortic regurgitation. There is mild mitral regurgitation. There is mild tricuspid regurgitation. The right ventricular systolic pressure is 50 - 55 mmHg. Right ventricular systolic pressure is consistent with moderate pulmonary hypertension. Mild aortic root dilatation. The aortic root is 4.4 cm Most recent stress test 08/15/22 IMPRESSION: Normal Lexiscan Myoview cardiac perfusion stress test. No evidence of ischemia or myocardial infarction by perfusion imaging. Normal left ventricular systolic function, ejection fraction 62%. No previous study available for comparison. Instructions Given to Patient: Instructions located in the after visit summary. Patient given verbal and written preop instructions and voices comprehension and compliance. SIGNATURE: Beverly Glass APRN.CNP PATIENT NAME: Jesus Wolf DATE: 03/20/2025 TIME: 9:38 AM documented in this encounter [facility] 03-10-2025 Note HNO ID: [id number] Author: MARY MORALES MD Service: ? Author Type: Physician Type: Progress Notes Filed: 03/10/2025 09:49 Note Text: This document has been created with the use of voice recognition technology, including AI Scribe technology. It may contain inaccuracies: misspellings, inaccurate syntax or word sense that escaped review. CHIEF COMPLAINT: Jesus Wolf is a 70 year old female who presents today for follow up of left knee. HISTORY OF PRESENT ILLNESS: PAIN EVALUATION 03/03/2025 1044 Pain Level: 8 Pain Location: Knee-Left Description: Stabbing Duration Units: Months Frequency: Continuous Intervention/Comfort measure: Medication;Reposition;Relaxation;P ositioning HISTORY: Jesus Wolf is a 70-year-old female presenting with recurrent left knee pain. Jesus reports a recurrence of left knee pain, similar to previous episodes, with pain localized to the anterior and medial aspects of the knee. The pain had subsided for approximately 2.5 months but has recently intensified, particularly with ambulation. She denies any new injuries to the knee. She is scheduled for foot surgery on April 03 and anticipates increased reliance on her left knee during the postoperative period, which will involve 10 weeks of non-weight bearing on the affected foot. She denies any pain radiating to the hip and confirms a history of right hip replacement. She denies a history of diabetes mellitus. ROS: REVIEW OF SYSTEMS: Constitutional: patient denies any recent fever or significant change in weight Cardiovascular: patient denies any chest pain at rest Respiratory: patient denies any shortness of breath or cough Gastrointestinal: patient denies any current abdominal discomfort Integumentary: patient denies any recent skin changes Musculoskeletal: as noted in the HPI Neurologic: as noted in the HPI Endocrine: patient denies a current diagnosis of diabetes Hematologic/Lymphatic: patient denies any easily bleeding, any recent infection and denies any recent observable lymph node enlargement Psychologic: negative for any recent depression or anxiety issues SOCIAL HISTORY: Tobacco Use: Never FAMILY HISTORY: FAMILY HISTORY Problem Relation Age of Onset Alzheimer's Disease Father Hypertension Father Cataract Mother Hypertension Mother Colon Cancer Mother Cataract Sister Hypertension Sister Colon Cancer Paternal Uncle Musculoskeletal: (+) left knee pain, (-) hip pain ALLERGIES: ALLERGIES Allergen Reactions Dofetilide Other: See [...] spot in area of shot PAST MEDICAL HISTORY: PAST MEDICAL HISTORY Diagnosis Date Atrial fibrillation (HCC) on coumadin Herniated intervertebral disk HTN (hypertension) Hyperlipemia Kidney disease MONI (obstructive sleep apnea) no longer using CPAP since 60 lb weight loss Other acute pancreatitis with uninfected necrosis (HCC) SLE (systemic lupus erythematosus) (HCC) SOCIAL HISTORY: Tobacco Use: Never EXAMINATION: GENERAL: obese, in wheel chair with boot on right foot, chronic venous stasis disease ORIENTATION: Alert and oriented to person place and time HABITUS: BMI 41 GAIT: Wheelchair bound left knee exam no effusion Partially correctable varus Alignment Active lacks a few degrees extension, flexion 115. central patellar tracking/ positive patellofemoral crepitation positive Pain with patellar compression, positive Pain with palpating medial compartment, no Pain with palpating lateral compartment. stable to varus and valgus stresses. Kelin is negative stable Anterior/posterior drawer. negative McMurrays No pain with palpation of pes anserine bursa Calf soft and nontender. Hip exam- negative log roll, preserved ER/IR, no pain with axial loading NV intact L3-S1 with 2+ DP pulse. IMPRESSION: Encounter Diagnosis ICD-10-CM 1. Primary osteoarthritis of left knee M17.12 Large Joint Arthro/Inj: L knee joint 03/10/2025 9:48 AM The procedure site was prepped in the usual sterile fashion. Site: L knee joint Medications: 40 mg triamcinolone acetonide 40 mg/mL Anesthetics: 4 mL lidocaine (PF) 10 mg/mL (1 %) Outcome: Tolerated well, no immediate complications Post-injection instructions were reviewed with the patient and the patient voiced understanding of these instructions. Informed Consent Consent Obtained: Written [place] Protocol A (more content not included)... [facility] 03-10-2025 History of Present illness Narrative Associated Order(s): Large Joint Arthro/Inj: L knee joint Post-Procedure Diagnose(s): Primary osteoarthritis of left knee This document has been created with the use of voice recognition technology, including AI Scribe technology. It may contain inaccuracies: misspellings, inaccurate syntax or word sense that escaped review. CHIEF COMPLAINT: Jesus Wolf is a 70 year old female who presents today for follow up of left knee. HISTORY OF PRESENT ILLNESS: PAIN EVALUATION 03/03/2025 1044 Pain Level: 8 Pain Location: Knee-Left Description: Stabbing Duration Units: Months Frequency: Continuous Intervention/Comfort measure: Medication;Reposition;Relaxation;P ositioning HISTORY: Jesus Wolf is a 70-year-old female presenting with recurrent left knee pain. Jesus reports a recurrence of left knee pain, similar to previous episodes, with pain localized to the anterior and medial aspects of the knee. The pain had subsided for approximately 2.5 months but has recently intensified, particularly with ambulation. She denies any new injuries to the knee. She is scheduled for foot surgery on April 03 and anticipates increased reliance on her left knee during the postoperative period, which will involve 10 weeks of non-weight bearing on the affected foot. She denies any pain radiating to the hip and confirms a history of right hip replacement. She denies a history of diabetes mellitus. ROS: REVIEW OF SYSTEMS: Constitutional: patient denies any recent fever or significant change in weight Cardiovascular: patient denies any chest pain at rest Respiratory: patient denies any shortness of breath or cough Gastrointestinal: patient denies any current abdominal discomfort Integumentary: patient denies any recent skin changes Musculoskeletal: as noted in the HPI Neurologic: as noted in the HPI Endocrine: patient denies a current diagnosis of diabetes Hematologic/Lymphatic: patient denies any easily bleeding, any recent infection and denies any recent observable lymph node enlargement Psychologic: negative for any recent depression or anxiety issues SOCIAL HISTORY: Tobacco Use: Never FAMILY HISTORY: FAMILY HISTORY Problem Relation Age of Onset Alzheimer's Disease Father Hypertension Father Cataract Mother Hypertension Mother Colon Cancer Mother Cataract Sister Hypertension Sister Colon Cancer Paternal Uncle Musculoskeletal: (+) left knee pain, (-) hip pain ALLERGIES: ALLERGIES Allergen Reactions Dofetilide Other: See [...] spot in area of shot PAST MEDICAL HISTORY: PAST MEDICAL HISTORY Diagnosis Date Atrial fibrillation (HCC) on coumadin Herniated intervertebral disk HTN (hypertension) Hyperlipemia Kidney disease MONI (obstructive sleep apnea) no longer using CPAP since 60 lb weight loss Other acute pancreatitis with uninfected necrosis (HCC) SLE (systemic lupus erythematosus) (HCC) SOCIAL HISTORY: Tobacco Use: Never EXAMINATION: GENERAL: obese, in wheel chair with boot on right foot, chronic venous stasis disease ORIENTATION: Alert and oriented to person place and time HABITUS: BMI 41 GAIT: Wheelchair bound left knee exam no effusion Partially correctable varus Alignment Active lacks a few degrees extension, flexion 115. central patellar tracking/ positive patellofemoral crepitation positive Pain with patellar compression, positive Pain with palpating medial compartment, no Pain with palpating lateral compartment. stable to varus and valgus stresses. Kelin is negative stable Anterior/posterior drawer. negative McMurrays No pain with palpation of pes anserine bursa Calf soft and nontender. Hip exam- negative log roll, preserved ER/IR, no pain with axial loading NV intact L3-S1 with 2+ DP pulse. IMPRESSION: Encounter Diagnosis ICD-10-CM 1. Primary osteoarthritis of left knee M17.12 Large Joint Arthro/Inj: L knee joint 03/10/2025 9:48 AM The procedure site was prepped in the usual sterile fashion. Site: L knee joint Medications: 40 mg triamcinolone acetonide 40 mg/mL Anesthetics: 4 mL lidocaine (PF) 10 mg/mL (1 %) Outcome: Tolerated well, no immediate complications Post-injection instructions were reviewed with the patient and the patient voiced understanding of these instructions. Informed Consent Consent Obtained: Written [place] Protocol A moment to CARE was completed. SIGN IN Personnel directly involved with the procedure wore the appropriate PPE. Special Equipment: N/A Patient/Surrogate Stated/Verified: Patient name, Date of , Relevant allergies and Intended procedure TIME OUT Relevant labs, photos, and/or imaging studies have been reviewed. Intended patient and procedure match source documents. Consent obtained and matches the intended procedure. Correct side/site marked and visible. Medications required for procedure verified. No fire risk assessment and interventions applicable. No implant(s) inserted. SIGN OUT No specimen collected. All instruments, equipment, possible retained foreign bodies accounted for. The post-procedure POC has been communicated to the patient or surrogate. No post-procedure POC communication to the patient's multidisciplinary team (including the bedside nurse for hospitalized patients) applicable. Plan: 1. Primary osteoarthritis of left knee (M17.12) Recurrent pain localized to the anterior and medial aspects of the left knee, consistent with areas of known osteoarthritic changes. No new injuries reported. - Administer intra-articular corticosteroid injection to alleviate pain and facilitate mobility, especially in preparation for upcoming foot surgery on April 03. - Monitor for any adverse reactions post-injection. - Follow-up as needed based on symptom relief and functional improvement. Alfredo Norwood PA-C I have personally performed face to face diagnostic evaluation on this patient. I have examined the patient and reviewed radiographic studies and agree with plan as outlined above. I performed a substantial part of today's visit and MDM. Patient with severe left knee osteoarthritis. She has upcoming foot surgery and we we injected her knee with cortisone today. She understands intervals of 10 injections. Will follow-up as needed Mary Morales MD March 10, 2025 9:45 AM documented in this encounter [facility] 03-03-2025 Telephone encounter Note Abisai Barraza CASING MATERIAL WEIGHER called stating ok to Stop Eliquis 3 days prior to procedure. Message received by Leelee MATA on 03-03-25 @ 1:25. Stated they will send a fax with written instructions. [facility] 03-03-2025 Miscellaneous Notes MARITZA Barraza CASING MATERIAL WEIGHER called stating ok to Stop Eliquis 3 days prior to procedure. Message received by Leelee MATA on 03-03-25 @ 1:25. Stated they will send a fax with written instructions. Refaxed letter to Jinny Barraza APRN RESPIRATORY CLINICIAN. Danika Munson RN PACC Resource Nurse Faxed letter to Abisai Barraza requesting 3 day hold of Eliquis. Danika Munson RN PACC Resource Nurse Images from the original note were not included. Elissa Harden APRN.CNP You3 days ago [facility] They do list a block under the surgical req, I would hold the 3 days per our guidelines. Thank you Praveen Bowers Cardiology documented in 01/27/25 CE- encounter for 48 hour hold. (See below) Is the 48 hr hold OK or do we need 3 day hold for this type of procedure? ARTHRODESIS MIDTARSAL MULTIPLE/TRANSVERSE - Right Anesthesia: general Plan: At this time, no prohibitive cardiovascular risk to proceed with much-needed surgical procedure. She may interrupt DOAC 48 hours prior to procedure, resume once hemostasis obtained. Abisai Barraza MSN, AFRICAN HISTORY PROFESSOR-RESPIRATORY CLINICIAN, PMHNP-[facility] [place] Images from the original note were not included. Elissa Harden APRN.CNP You6 hours ago (8:16 AM) [facility] Should be fine to hold the 3 days prior. Sarah Bethlo, Patient is scheduled for PROCEDURE : ARTHRODESIS MIDTARSAL MULTIPLE/TRANSVERSE - Right Cardiology documented ok for 48 hour hold of Eliquis prior to procedure. Please advise if patient needs 3 day hold of Eliquis for this procedure and if I might reach back out to cardiology for longer hold or surgeon for shorter hold? Thank you, Danika Munson RN PACC Resource Nurse documented in this encounter [facility] 03-02-2025 Telephone encounter Note Refaxed letter to Jinny Barraza APRN RESPIRATORY CLINICIAN. Danika Munson RN PACC Resource Nurse [facility] 02-27-2025 Telephone encounter Note Faxed letter to Abisai Barraza requesting 3 day hold of Eliquis. Danika Munson RN PACC Resource Nurse [facility] 02-27-2025 Telephone encounter Note Images from the original note were not included. Elissa Harden APRN.RESPIRATORY CLINICIAN You3 days ago [facility] They do list a block under the surgical req, I would hold the 3 days per our guidelines. Thank you [facility] 02-24-2025 Telephone encounter Note Praveen Bowers Cardiology documented in 01/27/25 CE- encounter for 48 hour hold. (See below) Is the 48 hr hold OK or do we need 3 day hold for this type of procedure? ARTHRODESIS MIDTARSAL MULTIPLE/TRANSVERSE - Right Anesthesia: general Plan: At this time, no prohibitive cardiovascular risk to proceed with much-needed surgical procedure. She may interrupt DOAC 48 hours prior to procedure, resume once hemostasis obtained. Abisai Barraza MSN, AFRICAN HISTORY PROFESSOR-RESPIRATORY CLINICIAN, PMHNP-[facility] [place] [facility] 02-24-2025 Telephone encounter Note Images from the original note were not included. Elissa Harden APRN.RESPIRATORY CLINICIAN You6 hours ago (8:16 AM) [facility] Should be fine to hold the 3 days prior. [facility] 02-21-2025 Telephone encounter Note Sarah Bethlo, Patient is scheduled for PROCEDURE : ARTHRODESIS MIDTARSAL MULTIPLE/TRANSVERSE - Right Cardiology documented ok for 48 hour hold of Eliquis prior to procedure. Please advise if patient needs 3 day hold of Eliquis for this procedure and if I might reach back out to cardiology for longer hold or surgeon for shorter hold? Thank you, Danika Munson, RN PACC Resource Nurse [facility] 02-21-2025 Telephone encounter Note Images from the original note were not included. Most recent Rheumatology visit: 11/16/2024 (with Nadege Murphy) Last Bone Density on file: 03/15/2024 Rheumatology Care Team: None on file Recent Office Visits - This Specialty 11/16/2024 Systemic lupus erythematosus, unspecified SLE type, unspecified organ involvement status (HCC) Rheumatology Nadege Murphy DO 05/18/2024 Systemic lupus erythematosus, unspecified SLE type, unspecified organ involvement status (HCC) Rheumatology Nadege Murphy DO 03/15/2024 Osteopenia of multiple sites Bone Center Julia Ann PA-C Upcoming Rheumatology Appointments - Next 365 Days Visit Type Date Time Department [facility] 05/24/2025 9:00 AM RHEU MAIN A50 Last Ophthalmology Check for Plaquenil (Hydroxychloroquine) Last OCT Macula Exam No resulted procedures found. Last Visual Field Exam No resulted procedures found. CBC: Latest Ref Rng & Units 05/20/2024 11/16/2024 CBC WBC 3.70 - 11.00 k/uL 8.85 7.24 Hemoglobin 11.5 - 15.5 g/dL 13.8 15.0 Hematocrit 36.0 - 46.0 % 41.2 46.3 Platelet Count 150 - 400 k/uL 271 272 Abs Neut (ANC) 1.45 - 7.50 k/uL 7.67 4.65 Abs Lymph 1.00 - 4.00 k/uL 0.68 1.46 Vitamin D: Latest Ref Rng & Units 10/13/2023 02/03/2025 Vitamin D Vitamin D 25 Hydroxy 31.0 - 80.0 ng/mL 43.4 50.7 LFT: Latest Ref Rng & Units 08/11/2024 11/16/2024 CMP Sodium 136 - 144 mmol/L 141 142 Potassium 3.7 - 5.1 mmol/L 4.7 4.5 Chloride 98 - 107 mmol/L 106 104 CO2 22 - 30 mmol/L 24 27 Glucose 74 - 99 mg/dL 82 86 BUN 7 - 21 mg/dL 24 15 Creatinine 0.58 - 0.96 mg/dL 1.03 1.04 Calcium 8.5 - 10.2 mg/dL 9.1 9.6 AST 13 - 35 U/L 41 ALT 7 - 38 U/L 45 Alkaline Phosphatase 34 - 123 U/L 115 Hepatic Function: Creatinine: Latest Ref Rng & Units 08/11/2024 11/16/2024 Creatinine Creatinine 0.58 - 0.96 mg/dL 1.03 1.04 ESR/CRP: None on file in the last 6 months Uric Acid: None on file in the last 6 months Open Standing (Multiple Instance) Lab Orders None Open Future (Single Instance) Lab Orders None [facility] 02-21-2025 Miscellaneous Notes Images from the original note were not included. Most recent Rheumatology visit: 11/16/2024 (with Nadege Murphy) Last Bone Density on file: 03/15/2024 Rheumatology Care Team: None on file Recent Office Visits - This Specialty 11/16/2024 Systemic lupus erythematosus, unspecified SLE type, unspecified organ involvement status (HCC) Rheumatology Nadege Murphy DO 05/18/2024 Systemic lupus erythematosus, unspecified SLE type, unspecified organ involvement status (HCC) Rheumatology Nadege Murphy DO 03/15/2024 Osteopenia of multiple sites Bone Center Julia Ann PA-C Upcoming Rheumatology Appointments - Next 365 Days Visit Type Date Time Department [facility] 05/24/2025 9:00 AM RHEU MAIN A50 Last Ophthalmology Check for Plaquenil (Hydroxychloroquine) Last OCT Macula Exam No resulted procedures found. Last Visual Field Exam No resulted procedures found. CBC: Latest Ref Rng & Units 05/20/2024 11/16/2024 CBC WBC 3.70 - 11.00 k/uL 8.85 7.24 Hemoglobin 11.5 - 15.5 g/dL 13.8 15.0 Hematocrit 36.0 - 46.0 % 41.2 46.3 Platelet Count 150 - 400 k/uL 271 272 Abs Neut (ANC) 1.45 - 7.50 k/uL 7.67 4.65 Abs Lymph 1.00 - 4.00 k/uL 0.68 1.46 Vitamin D: Latest Ref Rng & Units 10/13/2023 02/03/2025 Vitamin D Vitamin D 25 Hydroxy 31.0 - 80.0 ng/mL 43.4 50.7 LFT: Latest Ref Rng & Units 08/11/2024 11/16/2024 CMP Sodium 136 - 144 mmol/L 141 142 Potassium 3.7 - 5.1 mmol/L 4.7 4.5 Chloride 98 - 107 mmol/L 106 104 CO2 22 - 30 mmol/L 24 27 Glucose 74 - 99 mg/dL 82 86 BUN 7 - 21 mg/dL 24 15 Creatinine 0.58 - 0.96 mg/dL 1.03 1.04 Calcium 8.5 - 10.2 mg/dL 9.1 9.6 AST 13 - 35 U/L 41 ALT 7 - 38 U/L 45 Alkaline Phosphatase 34 - 123 U/L 115 Hepatic Function: Creatinine: Latest Ref Rng & Units 08/11/2024 11/16/2024 Creatinine Creatinine 0.58 - 0.96 mg/dL 1.03 1.04 ESR/CRP: None on file in the last 6 months Uric Acid: None on file in the last 6 months Open Standing (Multiple Instance) Lab Orders None Open Future (Single Instance) Lab Orders None documented in this encounter [facility] 02-20-2025 Note HNO ID: [id number] Author: ARNOL MUNSON RN Service: ? Author Type: Registered Nurse Type: Progress Notes Filed: 03/13/2025 10:04 Note Text: RN Pre Visit Questionnaire for upcoming PACC appointment PROCEDURE : ARTHRODESIS MIDTARSAL MULTIPLE/TRANSVERSE - Right SURGEON : Dr. Aiden Hall PROCEDURE DATE : 04/03/25 PACC APPT : 03/20/25 Prepared for surgery: Anticoagulant recommendations received: Yes RN Pre Visit Questionnaire completed by [facility] chart review and I spoke with this patient. Cardiac Optimization: Per Dr. Abisai Barraza APRN RESPIRATORY CLINICIAN, found in CE office visit on 01/27/25. Do you see a film editor supervisor, military technology specialist, electrical electronics engineer or other specialist within or outside of [facility]? SPECIALISTS: CARDIOLOGY: [facility]- Abisai Barraza MSN, AFRICAN HISTORY PROFESSOR-RESPIRATORY CLINICIAN, PMHNP- last visit 01/27/25 ENT: Office Visit with Curtis Ogden APRN.CNP (01/25/2025) PODIATRY: Office Visit with Beverly Franco DPM (01/19/2025) Afib/Aflutter CAD CHF DVT HTN HLD MONI CKD SLE Hypothyroidism Hyperparathyroidism Pulmonary HTN Are you on an anticoagulant PACC Anticoagulant: Yes Medication : Eliquis (Apixaban) CHADVASC = 7 Congestive Heart Failure / LV dysfunction (1) Hypertension (1) Stroke or TIA or thromboembolism (2) Vascular disease (prior SD, PAD, or aortic plaque) (1) Age 65-74 years (1) Sex (1) Anticoagulation recommendations : Found in CE- TE on 03/03/25 Stents: No Letter or Telephone encounter sent : Yes Provider : Dr Abisai Barraza APRN, CNP See 718 TE care everywhere: Message from Abisai Barraza sent at 03/02/2025 11:44 AM EDT ----- Ok to interrupt DOAC for 3 days as requested Implanted Devices: Watchman DIAGNOSTIC TEST REVIEW: View External Cardiology - Cardiac Cath [ID [id number]] EKG: View EKG Wave Form [ID [id number]] ECHO (09/23/2021 8:46 AM) CT watchman full contrast (08/15/2024 12:48 PM) Any new changes in your symptoms since you last saw your specialist? No Are you a Pre Diabetic/Diabetic/Weight loss/CHF medications No Dialysis No Skilled Facility Resident: no Any recent hospitalizations within [facility] or outside facilities in the past 3 months No Please have an up-to-date list of medications in preparation for your PACC visit. Instructions Given to Patient: Patient given verbal preop instructions and voices comprehension and compliance. SIGNATURE: Arnol Munson RN PATIENT NAME: Jesus Wolf DATE: February 20, 2025 TIME: 8:48 AM PAGER/CONTACT PHONE: [facility] 02-20-2025 History of Present illness Narrative RN Pre Visit Questionnaire for upcoming PACC appointment PROCEDURE : ARTHRODESIS MIDTARSAL MULTIPLE/TRANSVERSE - Right SURGEON : Dr. Aiden Hall PROCEDURE DATE : 04/03/25 PACC APPT : 03/20/25 Prepared for surgery: Anticoagulant recommendations received: Yes RN Pre Visit Questionnaire completed by [facility] chart review and I spoke with this patient. Cardiac Optimization: Per Dr. Abisai Barraza APRN RESPIRATORY CLINICIAN, found in CE office visit on 01/27/25. Do you see a film editor supervisor, military technology specialist, electrical electronics engineer or other specialist within or outside of [facility]? SPECIALISTS: CARDIOLOGY: CE- Abisai Barraza MSN, AFRICAN HISTORY PROFESSOR-RESPIRATORY CLINICIAN, PMHNP-BC last visit 01/27/25 ENT: Office Visit with Curtis Ogden APRN.JOHNATHAN (01/25/2025) PODIATRY: Office Visit with Beverly Franco DPM (01/19/2025) Afib/Aflutter CAD CHF DVT HTN HLD MONI CKD SLE Hypothyroidism Hyperparathyroidism Pulmonary HTN Are you on an anticoagulant PACC Anticoagulant: Yes Medication : Eliquis (Apixaban) CHADVASC = 7 Congestive Heart Failure / LV dysfunction (1) Hypertension (1) Stroke or TIA or thromboembolism (2) Vascular disease (prior SD, PAD, or aortic plaque) (1) Age 65-74 years (1) Sex (1) Anticoagulation recommendations : Found in CE- TE on 03/03/25 Stents: No Letter or Telephone encounter sent : Yes Provider : Dr Abisai Barraza AFRICAN HISTORY PROFESSOR RESPIRATORY CLINICIAN See 718 TE care everywhere: Message from Abisai Barraza sent at 03/02/2025 11:44 AM EDT ----- Ok to interrupt DOAC for 3 days as requested Implanted Devices: Watchman DIAGNOSTIC TEST REVIEW: View External Cardiology - Cardiac Cath [ID [id number]] EKG: View EKG Wave Form [ID [id number]] ECHO (09/23/2021 8:46 AM) CT watchman full contrast (08/15/2024 12:48 PM) Any new changes in your symptoms since you last saw your specialist? No Are you a Pre Diabetic/Diabetic/Weight loss/CHF medications No Dialysis No Skilled Facility Resident: no Any recent hospitalizations within [facility] or outside facilities in the past 3 months No Please have an up-to-date list of medications in preparation for your [facility] visit. Instructions Given to Patient: Patient given verbal preop instructions and voices comprehension and compliance. SIGNATURE: Arnol Munson RN PATIENT NAME: Jesus Wolf DATE: February 20, 2025 TIME: 8:48 AM PAGER/CONTACT PHONE: documented in this encounter [facility] 02-16-2025 Telephone encounter Note . [facility] 02-16-2025 Miscellaneous Notes . documented in this encounter [facility] 02-03-2025 Telephone encounter Note Journey Lineman called patient and [facility] regarding surgery with . Advised patient to call back at [phone] to discuss surgery date and following appts. [facility] 02-03-2025 Miscellaneous Notes Journey Lineman called patient and [facility] regarding surgery with . Advised patient to call back at [phone] to discuss surgery date and following appts. ----- Message from Aiden Hall MD sent at 02/02/2025 5:21 PM EDT ----- Procedure: Right extended medial column fusion (first TMT joint, NC joint, talonavicular joint fusions), ORIF navicular, subtalar joint fusion, second TMT joint fusion, third TMT joint fusion, NNAMDI versus gastrocnemius recession Location: [facility] - plan to admit post-op Date of Surgery: per patient C-arm (large or mini): mini Post-op Schedule: 2 and 6 weeks CASE REQUEST--- Anesthesia: general, pre-op LE block Prep: alcohol prep, betadine scrub and paint; extremity drape; bump under ipsilateral hip; small sterile bump Position: supine Tourniquet: thigh tourniquet Instruments: mini C-arm, Spivey joint prep kit, lara-legenbeck retractors, large power, small Nava Awan bone graft harvester Implants: Yajaira WMT/Spivey EasyFuse jerry, Yajaira small frag solid/cannulated screws Time needed: 3 hours CPT: 25272, 43486, 54675, 99834, 12711 [id number] documented in this encounter [facility] 02-03-2025 Telephone encounter Note ----- Message from Aiden Hall MD sent at 02/02/2025 5:21 PM EDT ----- Procedure: Right extended medial column fusion (first TMT joint, NC joint, talonavicular joint fusions), ORIF navicular, subtalar joint fusion, second TMT joint fusion, third TMT joint fusion, NNAMDI versus gastrocnemius recession Location: [facility] - plan to admit post-op Date of Surgery: per patient C-arm (large or mini): mini Post-op Schedule: 2 and 6 weeks CASE REQUEST--- Anesthesia: general, pre-op LE block Prep: alcohol prep, betadine scrub and paint; extremity drape; bump under ipsilateral hip; small sterile bump Position: supine Tourniquet: thigh tourniquet Instruments: mini C-arm, Yajaira joint prep kit, lara-legenbeck retractors, large power, small ToroermannNava bone graft harvester Implants: Yajaira WMT/Spivey EasyFuse jerry, Spivey small frag solid/cannulated screws Time needed: 3 hours CPT: 61865, 70465, 79479, 52923, 90543 [id number] [facility] 02-01-2025 Note HNO ID: [id number] Author: ALVA DARNELL PT Service: ? Author Type: Physical Therapist Type: Progress Notes Filed: 02/01/2025 16:21 Note Text: Episode Visit Count: 1 Start of Care Date: 02/01/25 Plan of Care Certification Date: 02/01/25 Next Certification Due Date: 02/01/25 Patient Identified by Name and Date of : Yes REHABILITATION AND SPORTS THERAPY PHYSICAL THERAPY EVALUATION PLAN OF CARE: Assessment: Jesus Wolf presents with diagnosis of pre-op rt foot surgery that interferes with rising from a chair, standing, walking, walking in the house, walking in the community, stair negotiation, heavy exertion, physical activities, recreational activities, working, driving, cleaning, cooking, dressing . The patient presents with impairments in ADL's, balance, gait, joint mobility, overall function, and strength. PROMIS? (Patient-Reported Outcomes Measurement Information System) scores were reviewed and identified as a rehabilitation concern. Prognosis for therapy is Fair due to: clinical presentation . Pt plans to utilize electric scooter. Discussed adaptions needed for home and potential barriers. Pt plans to f/u closer to home following surgery. The patient will benefit from skilled therapy services to meet the goals established for this plan of care as noted below. Anticipated ability to follow post-op precautions: With caregiver assistance in their current home environment Goals for Episode of Care: established 02/01/25 vocalize understanding of protocol-met Planned Interventions, Frequency, and Duration: Current Frequency: 1 visit Duration: 1 visit Total Number of Visits Planned: 1 Planned Treatment Interventions: Therapeutic exercise (02651), Neuromuscular re-education (88183), Therapeutic activities (89436), Self-skilled nursing management (16268), Gait Training (49347) PLAN FOR NEXT VISIT: pt will f/u closer to home Patient demonstrates good understanding of plan of care and treatment. The above goals and plan of care were discussed and agreed upon by patient/family. Transfer of Care Due To: Closer to Home Patient transferring care to: [facility] SUBJECTIVE: Having surgery in near future on rt foot. in w/c currently. Bone on bone left knee so can't use crutches or walker. Has power scooter at home she plans to use. 2 steps into home Symptoms began 2 mos ago. Functional Limitations: rising from a chair, standing, walking, walking in the house, walking in the community, stair negotiation, heavy exertion, physical activities, recreational activities, working, driving, cleaning, cooking, dressing Prior Level of Function: Independent without limitations Home Environment Patient Lives With: Spouse Assistance Available: 24-Hour Home Type: [place] Entry To Home: Stairs, Without Rail Number Of Stairs Into Home: 3 Tub/Shower Type: tub/shower combo; with shower bench Laundry: spouse can complete Equipment Owned: Elevated Toilet Seat, Grab Bars- Shower, Scooter- Power, Walker- Wheeled Transportation: Truck Intake Information: Prescription present Previous Treatment: None Falls Interview: Fall with injury in the last year Falls Intervention: Patient referred for more thorough falls assessment. Pain: Pain Pain Level: 3 Pain Location: Foot - Right PROMIS Scales 01/24/2025 01/14/2025 12/20/2024 Higher is Better Phys Func - T Score 35 (moderate dysfunction) 35 (moderate dysfunction) Phys Func - Percentile 7 7 Self-Eff Symptom - T Score 48 (Average) Self-Eff Symptom - Percentile 42 11/12/2024 03/11/2024 12/24/2023 Lower is Better Pain Interference - T Score 62 (moderate) 59 (mild) 63 (moderate) Pain Interference - Percentile 12 18 10 T-scores: mean of general population = 50. 5 points is clinically meaningfully difference Percentiles provide an indication of how the patient's score ranks in relation to the general population. Higher percentile rankings indicate better function/quality of life. 50th percentile is the average of the general population and indicates half of respondents had a worse score. OBJECTIVE MEASURES WITH LEVEL OF FUNCTION: Ankle Observations Weight Bearing Status: NWB R Ankle Presents with: Swelling R Ankle Palpation Tenderness: Medial malleolus, Lateral malleolus Sensation - Lower Extremity LE Light Touch Sensation: Grossly Intact LE AROM R LE AROM: NT LE Joint Mobility L Talocrural Joint: Hypomobile L Subtalar Joint: Hypomobile L Midfoot: Hypomobile LE Strength R LE Strength: NT L LE Strength: 4/5 Functional Strength Functional Strength: Sit<>stand Sit/Stand: SL w/hands Gait Weight Bearing Status: NWB Gait Observation: difficulty w/SL sit to stand w/hands Ramp: plans to build ramp for scooter Education: Education Learning Preferences: Explanation Learning/educational needs: Home exercise program, Safety, Gait Training, Body Mechanics Education Provided: Yes, see treatmen (more content not included)... [facility] 02-01-2025 History of Present illness Narrative Images from the original note were not included. Episode Visit Count: 1 Start of Care Date: 02/01/25 Plan of Care Certification Date: 02/01/25 Next Certification Due Date: 02/01/25 Patient Identified by Name and Date of : Yes REHABILITATION AND SPORTS THERAPY PHYSICAL THERAPY EVALUATION PLAN OF CARE: Assessment: Jesus Wolf presents with diagnosis of pre-op rt foot surgery that interferes with rising from a chair, standing, walking, walking in the house, walking in the community, stair negotiation, heavy exertion, physical activities, recreational activities, working, driving, cleaning, cooking, dressing . The patient presents with impairments in ADL's, balance, gait, joint mobility, overall function, and strength. PROMIS (Patient-Reported Outcomes Measurement Information System) scores were reviewed and identified as a rehabilitation concern. Prognosis for therapy is Fair due to: clinical presentation . Pt plans to utilize electric scooter. Discussed adaptions needed for home and potential barriers. Pt plans to f/u closer to home following surgery. The patient will benefit from skilled therapy services to meet the goals established for this plan of care as noted below. Anticipated ability to follow post-op precautions: With caregiver assistance in their current home environment Goals for Episode of Care: established 02/01/25 vocalize understanding of protocol-met Planned Interventions, Frequency, and Duration: Current Frequency: 1 visit Duration: 1 visit Total Number of Visits Planned: 1 Planned Treatment Interventions: Therapeutic exercise (90260), Neuromuscular re-education (62277), Therapeutic activities (73976), Self-skilled nursing management (06656), Gait Training (91954) PLAN FOR NEXT VISIT: pt will f/u closer to home Patient demonstrates good understanding of plan of care and treatment. The above goals and plan of care were discussed and agreed upon by patient/family. Transfer of Care Due To: Closer to Home Patient transferring care to: [facility] SUBJECTIVE: Having surgery in near future on rt foot. in w/c currently. Bone on bone left knee so can't use crutches or walker. Has power scooter at home she plans to use. 2 steps into home Symptoms began 2 mos ago. Functional Limitations: rising from a chair, standing, walking, walking in the house, walking in the community, stair negotiation, heavy exertion, physical activities, recreational activities, working, driving, cleaning, cooking, dressing Prior Level of Function: Independent without limitations Home Environment Patient Lives With: Spouse Assistance Available: 24-Hour Home Type: [place] Entry To Home: Stairs, Without Rail Number Of Stairs Into Home: 3 Tub/Shower Type: tub/shower combo; with shower bench Laundry: spouse can complete Equipment Owned: Elevated Toilet Seat, Grab Bars- Shower, Scooter- Power, Walker- Wheeled Transportation: Truck Intake Information: Prescription present Previous Treatment: None Falls Interview: Fall with injury in the last year Falls Intervention: Patient referred for more thorough falls assessment. Pain: Pain Pain Level: 3 Pain Location: Foot - Right PROMIS Scales 01/24/2025 01/14/2025 12/20/2024 Higher is Better Phys Func - T Score 35 (moderate dysfunction) 35 (moderate dysfunction) Phys Func - Percentile 7 7 Self-Eff Symptom - T Score 48 (Average) Self-Eff Symptom - Percentile 42 11/12/2024 03/11/2024 12/24/2023 Lower is Better Pain Interference - T Score 62 (moderate) 59 (mild) 63 (moderate) Pain Interference - Percentile 12 18 10 T-scores: mean of general population = 50. 5 points is clinically meaningfully difference Percentiles provide an indication of how the patient's score ranks in relation to the general population. Higher percentile rankings indicate better function/quality of life. 50th percentile is the average of the general population and indicates half of respondents had a worse score. OBJECTIVE MEASURES WITH LEVEL OF FUNCTION: Ankle Observations Weight Bearing Status: NWB R Ankle Presents with: Swelling R Ankle Palpation Tenderness: Medial malleolus, Lateral malleolus Sensation - Lower Extremity LE Light Touch Sensation: Grossly Intact LE AROM R LE AROM: NT LE Joint Mobility L Talocrural Joint: Hypomobile L Subtalar Joint: Hypomobile L Midfoot: Hypomobile LE Strength R LE Strength: NT L LE Strength: 4/5 Functional Strength Functional Strength: Sit<>stand Sit/Stand: SL w/hands Gait Weight Bearing Status: NWB Gait Observation: difficulty w/SL sit to stand w/hands Ramp: plans to build ramp for scooter Education: Education Learning Preferences: Explanation Learning/educational needs: Home exercise program, Safety, Gait Training, Body Mechanics Education Provided: Yes, see treatment interventions for education provided Education Provided To: Patient, Family TREATMENT: PT Treatment Interventions: Self-Custodial Management Evaluation Evaluation Self-Custodial Management: 1: ed for seat adaptions to elevate 2: ed for safety in the home 3: ed for use of walker 4: ed for elevated toilet seats and grab bars 5: ed fot in and out of truck. Skilled Intervention: Activity progression based on professional judgement. Billing * Evaluation Moderate Complexity: 1 Unit Self-Care/Home Management Treatment Minutes: 40 Skilled Treatment Time Minutes (timed and untimed codes): 40 Total Session Time (minutes): 46 Session Start Time : 314 Session Stop Time : 400 Alva Darnell PT DPT documented in this encounter [facility] 02-01-2025 Note HNO ID: [id number] Author: AIDEN HALL MD Service: ? Author Type: Physician Type: Progress Notes Filed: 02/02/2025 17:27 Note Text: Foot and [facility] Clinic - Follow-Up Visit Note CHIEF COMPLAINT: Right foot Charcot arthropathy Right midfoot DJD, severe Right hindfoot DJD, severe Right navicular fracture with subsequent resorption, NC and TN joint DJD, severe History of lupus with neuropathy INTERVAL HISTORY: Jesus Wolf is a 69 year old female who returns today for evaluation and discussion of surgical management of her Right foot charcot arthropathy PHYSICAL EXAM: Well appearing female in no acute distress; Alert and oriented. Right Lower Extremity: No swelling, erythema, warmth Moderate tenderness in midfoot Gross deformity present IMAGING: CT Right foot was independently evaluated and reveals Right navicular fracture with dislocation, midfoot DJD severe with talar plantarflexion noted ASSESSMENT: Right foot Charcot arthropathy Right midfoot DJD, severe Right hindfoot DJD, severe Right navicular fracture with subsequent resorption, NC and TN joint DJD, severe History of lupus with neuropathy PLAN: We will plan to proceed with surgical management. Surgery plan: Right extended medial column fusion (first TMT joint, NC joint, talonavicular joint fusions), ORIF navicular, subtalar joint fusion, second TMT joint fusion, third TMT joint fusion, NNAMDI versus gastrocnemius recession -Continue DJO boot to R LE until surgery -DVT prophylaxis w/ Eliquis postop (chronic anticoagulation for Afib) -Schedule surgery at [facility], will plan to stay overnight -NWB 8-10 weeks post op We discussed the surgery in detail, including the expected recovery, outcomes, risks and benefits. They will be Non-weight bearing for 10 weeks after surgery. They understand it will take them 5-6 months to fully recover from the surgery. The risks and benefits of surgery were discussed today, including, but not limited to: bleeding ,infection, damage to blood vessels and nerves, nerve pain, wound healing problems, nonunion, malunion, hardware failure, blood clots, and incomplete relief of symptoms. The patient understood, and agreed to go ahead. My office will begin scheduling surgery. Post-op pain medications per protocol. We discussed DVT Prophylaxis, and they will use ASA 81 mg BID. We discussed vitamin D supplementation as needed. Pre-operative antibiotics will be Ancef. ARETHA Modifiable Risk Factors (MoRF) Diabetes normal High: A1C > 8 Moderate: A1C 7-8 Normal: A1C < 7 Smoking normal High: Current smoker Normal: Non smoker Narcotics Use normal High:NarxCare >=300 Moderate: 100-299 Normal: 0-99 POST-OP PLAN: WB: NWB for 10 weeks. First 2 weeks NWB in post-op splint Pain control: Multimodal DVT ppx: home Eliquis to re-start POD2 Follow-up: 2 weeks post-op for wound check and suture removal. Place into short leg cast. Next follow-up: 6 weeks with X-rays foot (3 views, WB). Remove cast and replace into tall boot. Remain NWB until 10 weeks post-op. Next follow-up: 12 weeks with X-rays foot (3 views, WB) PT: start 10 weeks post-op for guided progressive WB protocol Thank you for the opportunity to participate in this patient's care. Aiden Hall MD Medical Decision Making [facility] 02-01-2025 History of Present illness Narrative Foot and Ankle Clinic - Follow-Up Visit Note CHIEF COMPLAINT: Right foot Charcot arthropathy Right midfoot DJD, severe Right hindfoot DJD, severe Right navicular fracture with subsequent resorption, NC and TN joint DJD, severe History of lupus with neuropathy INTERVAL HISTORY: Jesus Wolf is a 69 year old female who returns today for evaluation and discussion of surgical management of her Right foot charcot arthropathy PHYSICAL EXAM: Well appearing female in no acute distress; Alert and oriented. Right Lower Extremity: No swelling, erythema, warmth Moderate tenderness in midfoot Gross deformity present IMAGING: CT Right foot was independently evaluated and reveals Right navicular fracture with dislocation, midfoot DJD severe with talar plantarflexion noted ASSESSMENT: Right foot Charcot arthropathy Right midfoot DJD, severe Right hindfoot DJD, severe Right navicular fracture with subsequent resorption, NC and TN joint DJD, severe History of lupus with neuropathy PLAN: We will plan to proceed with surgical management. Surgery plan: Right extended medial column fusion (first TMT joint, NC joint, talonavicular joint fusions), ORIF navicular, subtalar joint fusion, second TMT joint fusion, third TMT joint fusion, NNAMDI versus gastrocnemius recession -Continue DJO boot to R LE until surgery -DVT prophylaxis w/ Eliquis postop (chronic anticoagulation for Afib) -Schedule surgery at [facility], will plan to stay overnight -NWB 8-10 weeks post op We discussed the surgery in detail, including the expected recovery, outcomes, risks and benefits. They will be Non-weight bearing for 10 weeks after surgery. They understand it will take them 5-6 months to fully recover from the surgery. The risks and benefits of surgery were discussed today, including, but not limited to: bleeding ,infection, damage to blood vessels and nerves, nerve pain, wound healing problems, nonunion, malunion, hardware failure, blood clots, and incomplete relief of symptoms. The patient understood, and agreed to go ahead. My office will begin scheduling surgery. Post-op pain medications per protocol. We discussed DVT Prophylaxis, and they will use ASA 81 mg BID. We discussed vitamin D supplementation as needed. Pre-operative antibiotics will be Ancef. ARETHA Modifiable Risk Factors (MoRF) Diabetes normal High: A1C > 8 Moderate: A1C 7-8 Normal: A1C < 7 Smoking normal High: Current smoker Normal: Non smoker Narcotics Use normal High:NarxCare >=300 Moderate: 100-299 Normal: 0-99 POST-OP PLAN: WB: NWB for 10 weeks. First 2 weeks NWB in post-op splint Pain control: Multimodal DVT ppx: home Eliquis to re-start POD2 Follow-up: 2 weeks post-op for wound check and suture removal. Place into short leg cast. Next follow-up: 6 weeks with X-rays foot (3 views, WB). Remove cast and replace into tall boot. Remain NWB until 10 weeks post-op. Next follow-up: 12 weeks with X-rays foot (3 views, WB) PT: start 10 weeks post-op for guided progressive WB protocol Thank you for the opportunity to participate in this patient's care. Aiden Hall MD Medical Decision Making documented in this encounter [facility] 02-01-2025 History of Present illness Narrative Radiology Service Progress Note PATIENT NAME: Jesus Wolf DATE OF SERVICE: February 01, 2025 TIME: 7:10 AM PATIENT IDENTITY VERIFICATION COMPLETED USING TWO (2) IDENTIFIERS: Name and Date of confirmed by patient verbally and Name and Date of confirmed by identification band. FALL SCREENING: Has the patient had 2 falls in the last year or 1 fall with injury or currently using an Ambulatory Assistive Device (Walker, Cane, Wheelchair, Crutches, etc.)? No PATIENT GENDER DATA: Assigned female at . status: : No status: NO. PATIENT RELEVANT IMPLANT DATA REVIEWED: Not Applicable PATIENT PRESENTS WITH AN IMPLANTABLE OR ATTACHED MINESWEEPING OFFICER: No RADIOLOGY DEPARTMENT: CT; Exam(s) Completed: Lower extremity PERIPHERAL IV DATA: Not applicable SIGNED BY: RT Rowan(Sandra) February 01, 2025 7:10 AM documented in this encounter [facility] 02-01-2025 Note HNO ID: [id number] Author: DEB MCGOVERN RT(R) Service: Radiology Author Type: Retail Sales Manager Type: Progress Notes Filed: 02/01/2025 07:10 Note Text: Radiology Service Progress Note PATIENT NAME: Jesus Wolf DATE OF SERVICE: February 01, 2025 TIME: 7:10 AM PATIENT IDENTITY VERIFICATION COMPLETED USING TWO (2) IDENTIFIERS: Name and Date of confirmed by patient verbally and Name and Date of confirmed by identification band. FALL SCREENING: Has the patient had 2 falls in the last year or 1 fall with injury or currently using an Ambulatory Assistive Device (Walker, Cane, Wheelchair, Crutches, etc.)? No PATIENT GENDER DATA: Assigned female at . status: : No status: NO. PATIENT RELEVANT IMPLANT DATA REVIEWED: Not Applicable PATIENT PRESENTS WITH AN IMPLANTABLE OR ATTACHED MINESWEEPING OFFICER: No RADIOLOGY DEPARTMENT: CT; Exam(s) Completed: Lower extremity PERIPHERAL IV DATA: Not applicable SIGNED BY: SANAM Donahue) February 01, 2025 7:[address] [facility] 01-30-2025 Telephone encounter Note She called noting she had spoken to [facility] and she had gotten scheduled there for PT; per recommendation of referring provider. [facility] 01-30-2025 Miscellaneous Notes She called noting she had spoken to [facility] and she had gotten scheduled there for PT; per recommendation of referring provider. documented in this encounter [facility] 01-27-2025 History of Present illness Narrative Chief Complaint I need to have surgery on my foot Patient presents to the office in wheelchair due to limited mobility. Last evaluated in clinic Dr. Conway November 2024. She denies any hospitalizations or significant changes to interval medical history since last cardiovascular examination. Reason for Visit Patient presents to [facility] [place] to obtain cardiac risk stratification prior to a orthopedic Charcot foot repair under general anesthesia. Surgeon: Dr. Hall Planned date: no date scheduled Prior cardiovascular history: June 2019 cardiac cath mild diffuse CAD. July 2022 MPI no ischemia, no infarct. LVEF 62%. September 2024 TTE LVEF 55 to 60%, AR mild, MR mild. RVSP 50-55 mmHg. Arrhythmia history paroxysmal atrial fibrillation//flutter status post prior ablation. Currently maintaining sinus rhythm with first-degree AV block on amiodarone 300 mg daily. CHADS VASc 3 status post left atrial appendage occlusive device. She has history of recurrent DVT with most recent March 2020 for left upper extremity and remains anticoagulated on full dose Eliquis. Patient presents to the office today with activity level > 4 METS. Daily activity includes: light housework Total DASI: 12.7 METs: 4.3 EKG in office: Cardia, first-degree AV block. QTc 497. No ischemia. ACC/AHA guidelines: 1. Major clinical markers: -Acute coronary syndrome or SD within 30 days: No -Decompensated heart failure: No -Significant arrhythmia: No -Severe valvular heart disease: No 2. Intermediate clinical markers -History of ischemic heart disease (prior SD, current chest pain secondary to ischemia, use of nitrates or EKG changes): No -Compensated/prior heart failure: No -Diabetes requiring insulin: No -Renal insufficiency with creatinine greater than 2: No 3. Minor clinical markers: -Age greater than or equal to 70: No -Abnormal EKG: Yes -Rhythm other than sinus rhythm: No -Low functional capacity: No -Prior CVA: No -Uncontrolled hypertension: No Surgery specific risk: Intermediate orthopedic repair According to ACC/AHA guidelines, a patient with recent favorable cardiovascular testing without change in symptoms may proceed to operating room without additional ischemic evaluation. Patient with functional capacity right at 4 METS with only minor clinical markers proceeding with intermediate risk surgery-no need for ischemic evaluation. GLORIA Revised Cardiac Risk Index: Very low 0.4% mace Concomitant medication review: Mar 2024 ARIELLE DVT (no details available) at this time has been fully anticoagulated greater than 10 months and no contraindication to interrupt for 48 hours prior to procedure. Review of Systems Cardiovascular: Negative for chest pain, dyspnea on exertion, irregular heartbeat, leg swelling, near-syncope, orthopnea, palpitations, paroxysmal nocturnal dyspnea and syncope. Visit Vitals BP 128/70 (BP Location: Left arm, Patient Position: Sitting) Ht 1.702 m (5' 7 ) BMI 40.19 kg/m Smoking Status Never BSA 2.34 m Physical Exam Vitals and nursing note reviewed. HENT: Head: Normocephalic. Cardiovascular: Rate and Rhythm: Normal rate and regular rhythm. Heart sounds: Murmur heard. Systolic murmur is present with a grade of 1/6. Pulmonary: Effort: Pulmonary effort is normal. Breath sounds: Normal breath sounds. Abdominal: Palpations: Abdomen is soft. Musculoskeletal: Right lower leg: No edema. Left lower leg: No edema. Feet: Comments: Left foot orthopedic device Skin: General: Skin is warm and dry. Neurological: General: No focal deficit present. Mental Status: She is alert. Psychiatric: Mood and Affect: Mood normal. Behavior: Behavior normal. ALLERGIES: Codeine; Dofetilide; Epinephrine; Sulfa (sulfonamide antibiotics); Prochlorperazine; Diphth,pertus(acell),tetanus; Iodinated contrast media; and Tetanus vaccines and toxoid Current Outpatient Medications Medication Instructions acetaminophen (TYLENOL) 325 mg, Every 6 hours PRN alendronate (FOSAMAX) 70 mg, Every 7 days amiodarone (PACERONE) 300 mg, oral, Daily apixaban (ELIQUIS) 5 mg, oral, 2 times daily atorvastatin (LIPITOR) 40 mg, oral, Daily belimumab (Benlysta) 120 mg recon soln IV injection Every 8 weeks Bifidobacterium infantis (ALIGN ORAL) 1 tablet, Daily busPIRone (Buspar) 5 mg tablet Take 1 tablet (5 mg) by mouth 2 times a day. celecoxib (CELEBREX) 200 mg, 2 times daily cholecalciferol (Vitamin D-3) 50 mcg (2,000 unit) capsule 3 capsules, Daily colestipol (COLESTID) 3 g, 2 times daily doxycycline (VIBRA-TABS) 100 mg, 2 times daily ferrous sulfate 325 (65 Fe) MG tablet 65 mg of elemental iron, Daily with breakfast furosemide (LASIX) 40 mg, Daily hydroxychloroquine (Plaquenil) 200 mg tablet 1 tablet, 2 times daily levothyroxine (SYNTHROID, LEVOXYL) 50 mcg, Daily before breakfast mesalamine (LIALDA) 2,400 mg, 2 times daily metoprolol succinate XL (TOPROL XL) 200 mg, oral, Daily, Do not crush or chew. metoprolol tartrate (Lopressor) 25 mg tablet As needed for break thru a-fib. Do not exceed one tablet multivitamin with minerals iron-free (Centrum Silver) 1 tablet, Daily pantoprazole (PROTONIX) 40 mg, 2 times daily spironolactone (ALDACTONE) 50 mg, Daily venlafaxine XR (EFFEXOR-XR) 150 mg, Daily Assessment: According to ACC/AHA guidelines, a patient with recent favorable cardiovascular testing without change in symptoms may proceed to operating room without additional ischemic evaluation. Patient with functional capacity right at 4 METS with only minor clinical markers proceeding with intermediate risk surgery-no need for ischemic evaluation. Plan: At this time, no prohibitive cardiovascular risk to proceed with much-needed surgical procedure. She may interrupt DOAC 48 hours prior to procedure, resume once hemostasis obtained. Abisai Barraza MSN, AFRICAN HISTORY PROFESSOR-RESPIRATORY CLINICIAN, PMHNP-[facility] [place] Please excuse any errors in grammar or translation related to this dictation. Voice recognition software was utilized to prepare this document. documented in this encounter [facility] Work Phone: 01-27-2025 Instructions BRENT Franco - 01/27/2025 8:30 AM EDT Please bring all medicines, vitamins, and herbal supplements with you when you come to the office. Prescriptions will not be filled unless you are compliant with your follow up appointments or have a follow up appointment scheduled as per instruction of your physician. Refills should be requested at the time of your visit. PLAN: Through informed decision making process incorporating patients unique circumstances, the following treatment plan will be initiated: 1. Prescription drug management of cardiovascular medication for efficacy, adherence to treatment, side effect assessment and polypharmacy. Current treatment clinically warranted and to continue without modifications. 2. Return for follow-up; in the interim, contact the office if new symptoms arise. Dr. Nat nino scheduled documented in this encounter [facility] Work Phone: 01-26-2025 Telephone encounter Note Order was faxed per her request. Doreen Ashby RN [facility] 01-26-2025 Miscellaneous Notes Order was faxed per her request. Doreen Ashby RN Jesus is calling Aiden Hall MD today with concern regarding Patient Update. Patient is having her pre surgery therapy at [facility] in [facility]. She needs the order for PT to be faxed to them at [phone] and phone is [phone]. Patient has been identified by name and birthdate. Person calling: self Call patient at: on cell [phone] (home) [phone] (cell) Was an appointment scheduled: No Closing statement: Results or non-symptom based questions: Thank you for calling [facility], your call will be returned within the next business day. uCrtis Lara documented in this encounter [facility] 01-26-2025 Telephone encounter Note Jesus is calling Aiden Hall MD today with concern regarding Patient Update. Patient is having her pre surgery therapy at [facility] in [facility]. She needs the order for PT to be faxed to them at [phone] and phone is [phone]. Patient has been identified by name and birthdate. Person calling: self Call patient at: on cell [phone] (home) [phone] (cell) Was an appointment scheduled: No Closing statement: Results or non-symptom based questions: Thank you for calling [facility], your call will be returned within the next business day. Curtis Lara [facility] 01-26-2025 History of Present illness Narrative Since your [...] open sores? No documented in this encounter [facility] 01-26-2025 Note HNO ID: [id number] Author: COCO GUZMAN RN Service: ? Author Type: Registered Nurse Type: Progress Notes Filed: 01/26/2025 12:07 Note Text: Since your last infusion, have [...] rash or open sores? No [facility] [place] 01-25-2025 Instructions Curtis Ogden APRN.RESPIRATORY CLINICIAN - 01/25/2025 10:18 AM EDT We discussed your recent nosebleeds and nasal care: - Continue using the ointment you have three times a day for the next two weeks. It is safe to use for this duration. - I have prescribed Doxycycline (antibiotic) to treat a mild secondary infection in your nose. Take this twice daily for 10 days. Avoid taking it with vitamins or minerals (e.g., calcium, iron) within two hours of the antibiotic, as they can interfere with absorption. For example, take the antibiotic with breakfast and dinner, and take your vitamins at lunch or bedtime. Avoid taking the antibiotic with a large glass of milk. - If your nose becomes red, hot, swollen, or painful to touch, or if you develop fever or chills, please contact me immediately via MyChart or phone. - Avoid using Flonase for now, as it can thin the nasal membranes and worsen bleeding. We can revisit this option once your nose has fully healed. - If you experience nasal congestion at night, you may try Breathe Right strips. Place them on the lower, soft part of your nose to help open your nostrils. We discussed follow-up care: - I recommend scheduling an appointment with a nasal specialist as a precaution. You can see either Dr. Dalila Harmon (who comes to this office) or Dr. Zhao Dejesus (in [place]). Schedule the appointment for at least two weeks from now to allow time for the antibiotics to work. If your symptoms resolve completely, you can cancel the appointment. - If you are hospitalized for your upcoming foot surgery and experience significant nosebleeds, inform the hospital team. They should avoid placing any tubes in your left nostril, as this is the side with recent bleeding. 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 - Let me know if you have any concerns about your immune system or healing process as you prepare for surgery. Please continue monitoring your symptoms and follow the care plan outlined above. If you have any questions or concerns, feel free to reach out. documented in this encounter [facility] 01-25-2025 Note HNO ID: [id number] Author: CURTIS OGDEN APRN.JOHNATHAN Service: ? Author Type: Nurse Practitioner Type: Progress Notes Filed: 01/25/2025 10:18 Note Text: Recording using [employer] software for draft documentation of the visit was discussed with the patient/authorized professional healthcare representative; all questions welcomed and answered. Patient/authorized professional healthcare representative agreed to proceed Ms. Wolf is a 69 year old female who was recently seen on 01/18/2025 for 1. Left-sided epistaxis (R04.0) Recurrent, severe epistaxis originating from the left nostril, with the most recent episode occurring last night. Previous episodes required emergency department intervention, including nasal packing. Examination revealed a bleeding site on the nasal septum, located posteriorly. - Performed chemical cauterization using silver nitrate. - Applied Afrin-soaked cotton to achieve vasoconstriction and control bleeding. - Inserted Surgicel to provide additional hemostasis. - Prescribed antibiotic ointment to be applied intranasally 2-3 times daily for 10 days to promote healing and prevent infection. - Advised against routine use of Afrin; instructed to use only during active bleeding by soaking a cotton ball and applying it to the affected nostril with a clamp for 10 minutes. - Scheduled follow-up appointment on at 0850 to reassess and ensure resolution. 2. halfway (current) use of anticoagulants (Z79.01) Patient is on Eliquis for atrial fibrillation and atrial flutter, which complicates hemostasis during epistaxis episodes. - Discussed increased risk of recurrent epistaxis due to anticoagulation therapy. - Emphasized the importance of following epistaxis management instructions to minimize bleeding risks. Jesus Wolf is a 69-year-old female with a history of lupus, presenting for follow-up of recurrent epistaxis. Jesus reports recurrent epistaxis, initially noticed on Thursday night before bed. The bleeding persisted into the following morning, described as oozing rather than gushing. She applied a clamp for 15 minutes, which helped reduce the bleeding but did not completely stop it. She did not use Afrin during this episode. Jesus has been using an ointment as previously instructed but discontinued it on Thursday night due to concerns about exacerbating the bleeding. She denies any bleeding from the right nostril. She has a history of lupus, which has led to complications including Charcot arthropathy, osteonecrosis, and neuropathy. 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 She has a CT scan scheduled for next Thursday at 0700, followed by physical therapy at 1200 and a consultation at 1400. She is on Eliquis due to a history of clotting and has been advised to continue the medication. Past history : PAST MEDICAL HISTORY Diagnosis Date Atrial fibrillation (HCC) on coumadin Herniated intervertebral disk HTN (hypertension) Hyperlipemia Kidney disease MONI (obstructive sleep apnea) no longer using CPAP since 60 lb weight loss Other acute pancreatitis with uninfected necrosis (HCC) SLE (systemic lupus erythematosus) ([facility]) Current medication: Current Outpatient Medications Medication Sig mupirocin (BACTROBAN) 2 % ointment Apply to affected area three times a day. alendronate (FOSAMAX) 70 mg tablet Take 1 tablet by mouth one time a week. In the morning with a full glass of water, on an empty stomach. Do not take anything else by mouth or lie down for the next 30 minutes. Mesalamine (LIALDA) 1.2 gram EC tablet Take 4 tablets by mouth once daily. hydrOXYchloroQUINE (PLAQUENIL) 200 mg tablet take 1 tablet by mouth twice a day with food ferrous sulfate (IRON) 325 mg (65 mg iron) tablet Take 1 tablet by mouth once daily. colestipol (COLESTID) 1 gram tablet TAKE 3 TABLETS BY MOUTH TWICE DAILY pantoprazole DR (PROTONIX) 40 mg tablet Take 1 tablet by mouth twice daily amiodarone (PACERONE) 200 mg tablet Take 300 mg by mouth once daily. Patient reports 300 mg by mouth daily metoprolol succinate ER (TOPROL XL) 50 mg 24 hr tablet TAKE 1 TABLET BY MOUTH IN THE MORNING AND 2 TABLETS BY MOUTH IN THE EVENING ELIQUIS 5 mg tab(s) Take 5 mg by mouth twice daily. acetaminophen (TYLENOL) 500 mg tablet Take 1 tablet by mouth every 4 hours as needed for pain. qcvrqrs-lkpjglebl-qenpkzb D3 500 mg-5 mcg (200 unit) per tablet Take 1 tablet by mouth three times daily. MV with Pfj-Tzqaydpw-Twhxzx (CENTRUM SILVER) 0.4 mg-300 mcg- 250 mcg tab Take 1 tablet by mouth once daily. sucralfate (CARAFATE) 100 mg/mL suspension Take 10 mL by mouth four times daily. atorvastatin (LIPITOR) 40 mg tablet Take 1 tablet by mouth once daily. Bifidobacterium infantis (ALIGN ORAL) Take by mouth once daily. belimumab (BENLYSTA INTRAVENOUS) Inject intravenously. Patient reports she receives infusion every 3 months venlafaxine (more content not included)... [facility] 01-25-2025 History of Present illness Narrative Recording using [employer] software for draft documentation of the visit was discussed with the patient/authorized professional healthcare representative; all questions welcomed and answered. Patient/authorized professional healthcare representative agreed to proceed Ms. Wolf is a 69 year old female who was recently seen on 01/18/2025 for 1. Left-sided epistaxis (R04.0) Recurrent, severe epistaxis originating from the left nostril, with the most recent episode occurring last night. Previous episodes required emergency department intervention, including nasal packing. Examination revealed a bleeding site on the nasal septum, located posteriorly. - Performed chemical cauterization using silver nitrate. - Applied Afrin-soaked cotton to achieve vasoconstriction and control bleeding. - Inserted Surgicel to provide additional hemostasis. - Prescribed antibiotic ointment to be applied intranasally 2-3 times daily for 10 days to promote healing and prevent infection. - Advised against routine use of Afrin; instructed to use only during active bleeding by soaking a cotton ball and applying it to the affected nostril with a clamp for 10 minutes. - Scheduled follow-up appointment on at 0850 to reassess and ensure resolution. 2. halfway (current) use of anticoagulants (Z79.01) Patient is on Eliquis for atrial fibrillation and atrial flutter, which complicates hemostasis during epistaxis episodes. - Discussed increased risk of recurrent epistaxis due to anticoagulation therapy. - Emphasized the importance of following epistaxis management instructions to minimize bleeding risks. Jesus Wolf is a 69-year-old female with a history of lupus, presenting for follow-up of recurrent epistaxis. Jesus reports recurrent epistaxis, initially noticed on Thursday night before bed. The bleeding persisted into the following morning, described as oozing rather than gushing. She applied a clamp for 15 minutes, which helped reduce the bleeding but did not completely stop it. She did not use Afrin during this episode. Jesus has been using an ointment as previously instructed but discontinued it on Thursday night due to concerns about exacerbating the bleeding. She denies any bleeding from the right nostril. She has a history of lupus, which has led to complications including Charcot arthropathy, osteonecrosis, and neuropathy. 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 She has a CT scan scheduled for next Thursday at 0700, followed by physical therapy at 1200 and a consultation at 1400. She is on Eliquis due to a history of clotting and has been advised to continue the medication. Past history : PAST MEDICAL HISTORY Diagnosis Date Atrial fibrillation (HCC) on coumadin Herniated intervertebral disk HTN (hypertension) Hyperlipemia Kidney disease MONI (obstructive sleep apnea) no longer using CPAP since 60 lb weight loss Other acute pancreatitis with uninfected necrosis (HCC) SLE (systemic lupus erythematosus) ([facility]) Current medication: Current Outpatient Medications Medication Sig mupirocin (BACTROBAN) 2 % ointment Apply to affected area three times a day. alendronate (FOSAMAX) 70 mg tablet Take 1 tablet by mouth one time a week. In the morning with a full glass of water, on an empty stomach. Do not take anything else by mouth or lie down for the next 30 minutes. Mesalamine (LIALDA) 1.2 gram EC tablet Take 4 tablets by mouth once daily. hydrOXYchloroQUINE (PLAQUENIL) 200 mg tablet take 1 tablet by mouth twice a day with food ferrous sulfate (IRON) 325 mg (65 mg iron) tablet Take 1 tablet by mouth once daily. colestipol (COLESTID) 1 gram tablet TAKE 3 TABLETS BY MOUTH TWICE DAILY pantoprazole DR (PROTONIX) 40 mg tablet Take 1 tablet by mouth twice daily amiodarone (PACERONE) 200 mg tablet Take 300 mg by mouth once daily. Patient reports 300 mg by mouth daily metoprolol succinate ER (TOPROL XL) 50 mg 24 hr tablet TAKE 1 TABLET BY MOUTH IN THE MORNING AND 2 TABLETS BY MOUTH IN THE EVENING ELIQUIS 5 mg tab(s) Take 5 mg by mouth twice daily. acetaminophen (TYLENOL) 500 mg tablet Take 1 tablet by mouth every 4 hours as needed for pain. mgdayuq-spgcbkztx-qppbjwj D3 500 mg-5 mcg (200 unit) per tablet Take 1 tablet by mouth three times daily. MV with Twp-Ardufrfw-Xroupo (CENTRUM SILVER) 0.4 mg-300 mcg- 250 mcg [...] mg tablet Take 10 mg by mouth two times a day. Cholecalciferol, Vitamin D3, 2,000 unit cap Take by mouth once daily. vitamin b complex(B COMPLEX TAB) one daily multivitamins w-minerals/lut(CENTRUM SILVER TAB) Take one(1) tablet daily. No current facility-administered medications for this visit. Allergies: ALLERGIES Allergen Reactions Dofetilide Other: See Comments, [...] Comments red spot in area of shot Social history: Social History Tobacco Use Smoking status: Never Smokeless tobacco: Never Vaping Use Vaping status: Never Used Substance Use Topics Alcohol use: Yes Comment: very rare Drug use: No Comment: denies tx for drug/alcohol abuse in the past. Family history: FAMILY HISTORY Problem Relation Age of Onset Alzheimer's Disease Father Hypertension Father Cataract Mother Hypertension Mother Colon Cancer Mother Cataract Sister Hypertension Sister Colon Cancer Paternal Uncle There has been no change in patient's past medical, social, family history, review of system, allergies or medication since 01/18/2025. Physical exam: General Appearance: 69 year old female is alert, oriented, not in acute distress. Hearing is grossly normal, voice is clear. There is no tenderness with percussion over the paranasal sinuses. Eyes: PEERLA, extraocular movements are full. Nose: Right nasal passage is clean. Left nasal passage has dry clot debris and scab which was partially cleaned with suction. There is erythema and hyperemia to the nasal tip, nasal rim cartilage inflammation and evidence of nasal vestibulitis. There is a small anterior septal bleeder. Septum is straight. There are no polyps. Neck: No masses palpated. Thyroid is not enlarged. Trachea is in the midline. Ears: Both ear canals are clean. Both TMs are intact and mobile. Cauterization of the left anterior septal bleeder with silver nitrate was recommended.The risks, benefits, possible complications, alternative management options, personal and confidentiality was discussed and questions were answered. Patient wishes to proceed with the recommended procedure. Patient will use saline nasal sprays for the next week to 10 days as needed. Procedure: After the procedure was explained to the patient and the patient agreed to have the procedure done 4% Xylocaine soaked cotton pledget was placed against the left anterior septal bleeder. After adequate anesthesia was obtained bleeder was cauterized with silver nitrate. Patient will use saline nasal sprays as needed. Patient will have followup as needed in case of persistence or recurrence of problem. Impression and Plan of management: 1. Left-sided epistaxis Nasal vestibulitis Recurrent left-sided epistaxis with recent episodes of oozing. Examination revealed residual clot and signs of secondary infection. Nasal vestibulitis likely contributing to symptoms. - Performed chemical cauterization to address active bleeder. - Initiated doxycycline for 10 days to treat secondary infection; advised to avoid taking vitamins within 2 hours of antibiotic administration. - Continue application of nasal ointment TID for 2 weeks. - Advised against the use of Flonase until epistaxis is fully resolved. - Recommended use of Afrin during episodes of bleeding for vasoconstriction. - Suggested Breathe Right strips to alleviate nocturnal congestion. - Referral to Dr. Dalila Harmon or Dr. Willie Wooten for further evaluation if bleeding persists; appointment to be scheduled in 2 weeks to allow for healing. 2. halfway (current) use of anticoagulants Patient is on Eliquis with a history of clotting disorders. Anticoagulation therapy complicates management of epistaxis. - Continue Eliquis as prescribed; benefits outweigh risks given clotting history. - Instructed patient to inform surgical team at [facility] to avoid nasal instrumentation on the left side during upcoming foot surgery. Curtis Ogden APRN.RESPIRATORY CLINICIAN documented in this encounter [facility] 01-24-2025 Telephone encounter Note Spoke with patient, confirmed Dr. Aiden holliday needs direction on which medications patient can take perioperatively (HCQ and belimumab infusions - scheduled for 01/26 and 03/23) and surgical clearance. [facility] 01-24-2025 Miscellaneous Notes Spoke with patient, confirmed Dr. Aiden holliday needs direction on which medications patient can take perioperatively (HCQ and belimumab infusions - scheduled for 01/26 and 03/23) and surgical clearance. Hi, This pt is scheduled with you on 05/24/25. Can she be added on? documented in this encounter [facility] 01-24-2025 Telephone encounter Note Ky, This pt is scheduled with you on 05/24/25. Can she be added on? [facility] 01-23-2025 Note HNO ID: [id number] Author: AIDEN HALL MD Service: ? Author Type: Physician Type: Progress Notes Filed: 01/23/2025 11:28 Note Text: [facility] - [facility] Patient Visit Consultation requested by No referring provider defined for this encounter. for an opinion regarding Ms. Jesus Wolf, and my final recommendations will be communicated back to the requesting physician by way of shared medical record or letter via [place] mail. CHIEF COMPLAINT: Right foot Charcot arthropathy Right midfoot DJD, severe Right hindfoot DJD, severe Right navicular fracture with subsequent resorption, NC and TN joint DJD, severe History of lupus with neuropathy HISTORY OF PRESENT ILLNESS: Jesus Wolf is a 69 year old female who presents today for evaluation of a right navicular fracture that occurred on 11/25/24. She has been followed by podiatry and has been treated with a boot and non weight bearing instructions. There has been no improvement and was referred to Orthopedic surgery for further evaluation. Extremities reveals fracture of the navicular as well as Charcot changes in the midfoot and hindfoot with plantarflexion of the talus present Location of Pain: left The pain is present 2 out of 10 , occ sharp pain The pain is a 2/10 at its best, and 3/10 at its worst. They denies nocturnal pain. The pain is exacerbated by non weight bearing instructions currently . The pain is improved with rest. They report no. They are able to walk 10 minutes before having to stop secondary to pain. 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 Eyes: extraocular movements intact, pupils are equal, round, and reactive to light. Cardiovascular: normal pulses Pulmonary: normal work of breathing on room air Skin: capillary refill takes less than 2 seconds Neurological: AOx4, follows commands Musculoskeletal: Right lower extremity Inspection: Right foot with severe flat foot deformity present on stance examination with only mild amount of swelling present, no violation of skin, no wounds Palpation: Tender palpation of the medial hindfoot ROM: Tolerates toe range of motion and ankle range of motion, ankle range of motion is about neutral to 20 degrees plantarflexion Neuro: sensation intact in the superficial peroneal, deep peroneal, tibial, sural, and saphenous nerve distributions Vascular: DP pulse present, 2+ Compartments: compartments of leg are soft and compressible IMAGING: X-ray imaging of the right foot, 3 views, was independently evaluated and reveals navicular fracture with bone loss present, displacement of fracture fragment with severe DJD of the midfoot including at the 2nd and 3rd TMT joints, plantarflexion of the talus, DJD of the NC joint. She has prior hardware present, hallux IP joint fusion with plate and 2 independent screws ASSESSMENT I reviewed the imaging studies, physical exam findings, and clinical course with the patient today. Right foot Charcot arthropathy Right midfoot DJD, severe Right hindfoot DJD, severe Right navicular fracture with subsequent resorption, NC and TN joint DJD, severe History of lupus with neuropathy PLAN: I am extensive discussion with patient today that she has a complex foot deformity. We discussed that she has Charcot arthropathy which is likely secondary to her lupus and neuropathy thereafter. We discussed management of her Charcot arthropathy would be done concurrently with management of the navicular fracture. I discussed that the navicular fracture is a sequelae of Charcot arthropathy given that she had no pain for 1 week after the initial injury. In addition I discussed that management of this would have to be done through fusion surgeries given the extent of her deformity, DJD, and bone loss associated with a navicular fracture. We briefly discussed surgical plan which would involve extended medial column fusion, subtalar joint fusion, 2nd and 3rd TMT joint fusion, bone grafting, additional procedures as needed She will follow-up after completion of CT imaging of the right foot for discussion of surgical management. She will also complete preoperative physical therapy same day at [facility]. Thank you for the opportunity to participate in this patient's care. Aiden Hall MD Medical Decision Making [facility] 01-23-2025 History of Present illness Narrative [facility] - New Patient Visit Consultation requested by No referring provider defined for this encounter. for an opinion regarding Ms. Jesus Wolf, and my final recommendations will be communicated back to the requesting physician by way of shared medical record or letter via [place] mail. CHIEF COMPLAINT: Right foot Charcot arthropathy Right midfoot DJD, severe Right hindfoot DJD, severe Right navicular fracture with subsequent resorption, NC and TN joint DJD, severe History of lupus with neuropathy HISTORY OF PRESENT ILLNESS: Jesus Wolf is a 69 year old female who presents today for evaluation of a right navicular fracture that occurred on 11/25/24. She has been followed by podiatry and has been treated with a boot and non weight bearing instructions. There has been no improvement and was referred to Orthopedic surgery for further evaluation. Extremities reveals fracture of the navicular as well as Charcot changes in the midfoot and hindfoot with plantarflexion of the talus present Location of Pain: left The pain is present 2 out of 10 , occ sharp pain The pain is a 2/10 at its best, and 3/10 at its worst. They denies nocturnal pain. The pain is exacerbated by non weight bearing instructions currently . The pain is improved with rest. They report no. They are able to walk 10 minutes before having to stop secondary to pain. 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 Eyes: extraocular movements intact, pupils are equal, round, and reactive to light. Cardiovascular: normal pulses Pulmonary: normal work of breathing on room air Skin: capillary refill takes less than 2 seconds Neurological: AOx4, follows commands Musculoskeletal: Right lower extremity Inspection: Right foot with severe flat foot deformity present on stance examination with only mild amount of swelling present, no violation of skin, no wounds Palpation: Tender palpation of the medial hindfoot ROM: Tolerates toe range of motion and ankle range of motion, ankle range of motion is about neutral to 20 degrees plantarflexion Neuro: sensation intact in the superficial peroneal, deep peroneal, tibial, sural, and saphenous nerve distributions Vascular: DP pulse present, 2+ Compartments: compartments of leg are soft and compressible IMAGING: X-ray imaging of the right foot, 3 views, was independently evaluated and reveals navicular fracture with bone loss present, displacement of fracture fragment with severe DJD of the midfoot including at the 2nd and 3rd TMT joints, plantarflexion of the talus, DJD of the NC joint. She has prior hardware present, hallux IP joint fusion with plate and 2 independent screws ASSESSMENT I reviewed the imaging studies, physical exam findings, and clinical course with the patient today. Right foot Charcot arthropathy Right midfoot DJD, severe Right hindfoot DJD, severe Right navicular fracture with subsequent resorption, NC and TN joint DJD, severe History of lupus with neuropathy PLAN: I am extensive discussion with patient today that she has a complex foot deformity. We discussed that she has Charcot arthropathy which is likely secondary to her lupus and neuropathy thereafter. We discussed management of her Charcot arthropathy would be done concurrently with management of the navicular fracture. I discussed that the navicular fracture is a sequelae of Charcot arthropathy given that she had no pain for 1 week after the initial injury. In addition I discussed that management of this would have to be done through fusion surgeries given the extent of her deformity, DJD, and bone loss associated with a navicular fracture. We briefly discussed surgical plan which would involve extended medial column fusion, subtalar joint fusion, 2nd and 3rd TMT joint fusion, bone grafting, additional procedures as needed She will follow-up after completion of CT imaging of the right foot for discussion of surgical management. She will also complete preoperative physical therapy same day at [facility]. Thank you for the opportunity to participate in this patient's care. Aiden Hall MD Medical Decision Making documented in this encounter [facility] 01-19-2025 Note IMPRESSION: NAVICULA R FRACTURE WITH PROGRESSIVE FINDINGS SUGGESTIVE OF CHARCOT ARTHROPATHY. Trans Router: [facility] Transcribe Date/Time: Jan 19 2025 4:42P Dictated by : MIRTHA KENDRICK MD This examination was interpreted and the report reviewed and electronically signed by: MIRTHA KENDRICK MD on Jan 19 2025 4:45PM [facility] DIV[facility] OF RADIOLOGY 01-19-2025 Note HNO ID: [id number] Author: BEVERLY FRANCO DPM Service: ? Author Type: Physician Type: Progress Notes Filed: 01/19/2025 14:20 Note Text: SERVICE DATE: January 19, 2025 PCP: Wojciech Treviño MD, DO Subjective Patient ID: Jesus is a 69 year old female. Patient presents with her s/p injury sustained in the middle of November. Patient walked on foot until follow-up with PCP. she states it is still sore. Chief Complaint: Patient presents with: Fracture: Closed nondisplaced fx of the navicular bone right foot PAIN EVALUATION No data found in the last 1 encounters. HPI patient sustained an injury during a fall in mid November and was initially seen by her PCP and ultimately seen here approximately 3 weeks later on December 21 where x-ray was obtained displaying a closed nondisplaced fracture of the navicular. Patient was immobilized and made nonweightbearing at that time TREATMENTS PRIOR TO CONSULT: Immobilization and nonweightbearing Review of Systems ACTIVE PROBLEM LIST Edema [...] Thoracic Ascending Aortic Aneurysm Hypercalcemia Hyperparathyroid (Hcc) Thin Blood Pulmonary Hypertension (Hcc) PAST MEDICAL HISTORY Diagnosis Date Atrial fibrillation (HCC) on coumadin Herniated intervertebral disk HTN (hypertension) Hyperlipemia Kidney disease MONI (obstructive sleep apnea) no longer using CPAP since 60 lb weight loss Other acute pancreatitis with uninfected necrosis (HCC) SLE (systemic lupus erythematosus) (HCC) PAST SURGICAL HISTORY Procedure Laterality Date APPENDECTOMY CARPAL TUNNEL RIGHT WRIST surgical correction COLONOSCOPY 05/10/2019 [facility] COLONOSCOPY GEN ANES 07/23/2020 Dr. Frances/Diverticulosis/Hemorrhoids/ Ulcerative Colitis/Rpt in 2 yrs. COLONOSCOPY SCREENING 03/2023 EGD EUS 01/11/2020 [facility] LASIK Right prior to [...] Never Smokeless tobacco: Never Vaping Use Vaping status: Never Used Substance Use Topics Alcohol use: Yes Comment: [...] red spot in area of shot MEDICATIONS: mupirocin (BACTROBAN) 2 % ointment Apply to affected area three times a day. alendronate (FOSAMAX) 70 mg tablet Take 1 tablet by mouth one time a week. In the morning with a full glass of water, on an empty stomach. Do not take anything else by mouth or lie down for the next 30 minutes. Mesalamine (LIALDA) 1.2 gram EC tablet Take 4 tablets by mouth once daily. hydrOXYchloroQUINE (PLAQUENIL) 200 mg tablet take 1 tablet by mouth twice a day with food ferrous sulfate (IRON) 325 mg (65 mg iron) tablet Take 1 tablet by mouth once daily. colestipol (COLESTID) 1 gram tablet TAKE 3 TABLETS BY MOUTH TWICE DAILY pantoprazole DR (PROTONIX) 40 mg tablet Take 1 tablet by mouth twice daily amiodarone (PACERONE) 200 mg tablet Take 300 mg by mouth once daily. Patient reports 300 mg (more content not included)... [facility] 01-19-2025 History of Present illness Narrative SERVICE DATE: January 19, 2025 PCP: Wojciech Treviño MD, DO Subjective Patient ID: Jesus is a 69 year old female. Patient presents with her s/p injury sustained in the middle of November. Patient walked on foot until follow-up with PCP. she states it is still sore. Chief Complaint: Patient presents with: Fracture: Closed nondisplaced fx of the navicular bone right foot PAIN EVALUATION No data found in the last 1 encounters. HPI patient sustained an injury during a fall in mid November and was initially seen by her PCP and ultimately seen here approximately 3 weeks later on December 21 where x-ray was obtained displaying a closed nondisplaced fracture of the navicular. Patient was immobilized and made nonweightbearing at that time TREATMENTS PRIOR TO CONSULT: Immobilization and nonweightbearing Review of Systems ACTIVE PROBLEM LIST Edema [...] Thoracic Ascending Aortic Aneurysm Hypercalcemia Hyperparathyroid (Hcc) Thin Blood Pulmonary Hypertension (Hcc) PAST MEDICAL HISTORY Diagnosis Date Atrial fibrillation (HCC) on coumadin Herniated intervertebral disk HTN (hypertension) Hyperlipemia Kidney disease MONI (obstructive sleep apnea) no longer using CPAP since 60 lb weight loss Other acute pancreatitis with uninfected necrosis (HCC) SLE (systemic lupus erythematosus) (HCC) PAST SURGICAL HISTORY Procedure Laterality Date APPENDECTOMY CARPAL TUNNEL RIGHT WRIST surgical correction COLONOSCOPY 05/10/2019 [facility] COLONOSCOPY GEN ANES 07/23/2020 Dr. Frances/Diverticulosis/Hemorrhoids/ Ulcerative Colitis/Rpt in 2 yrs. COLONOSCOPY SCREENING 03/2023 EGD EUS 01/11/2020 [facility] LASIK Right prior to [...] Never Smokeless tobacco: Never Vaping Use Vaping status: Never Used Substance Use Topics Alcohol use: Yes Comment: [...] red spot in area of shot MEDICATIONS: mupirocin (BACTROBAN) 2 % ointment Apply to affected area three times a day. alendronate (FOSAMAX) 70 mg tablet Take 1 tablet by mouth one time a week. In the morning with a full glass of water, on an empty stomach. Do not take anything else by mouth or lie down for the next 30 minutes. Mesalamine (LIALDA) 1.2 gram EC tablet Take 4 tablets by mouth once daily. hydrOXYchloroQUINE (PLAQUENIL) 200 mg tablet take 1 tablet by mouth twice a day with food ferrous sulfate (IRON) 325 mg (65 mg iron) tablet Take 1 tablet by mouth once daily. colestipol (COLESTID) 1 gram tablet TAKE 3 TABLETS BY MOUTH TWICE DAILY pantoprazole DR (PROTONIX) 40 mg tablet Take 1 tablet by mouth twice daily amiodarone (PACERONE) 200 mg tablet Take 300 mg by mouth once daily. Patient reports 300 mg by mouth daily metoprolol succinate ER (TOPROL XL) 50 mg 24 hr tablet TAKE 1 TABLET BY MOUTH IN THE MORNING AND 2 TABLETS BY MOUTH IN THE EVENING ELIQUIS 5 mg tab(s) Take 5 mg by mouth twice daily. acetaminophen (TYLENOL) 500 mg tablet Take 1 tablet by mouth every 4 hours as needed for pain. mmcfqij-lebgseawq-bxzezzu D3 500 mg-5 mcg (200 unit) per tablet Take 1 tablet by mouth three times daily. MV with Jtn-Qyqitcdy-Gqtwfp (CENTRUM SILVER) 0.4 mg-300 mcg- 250 mcg [...] mg tablet Take 10 mg by mouth two times a day. Cholecalciferol, Vitamin D3, 2,000 unit cap Take by mouth once daily. vitamin b complex(B COMPLEX TAB) one daily multivitamins w-minerals/lut(CENTRUM SILVER TAB) Take one(1) tablet daily. Allergies, medications, past surgical history, family history and past medical history were reviewed per this encounter. Objective PHYSICAL EXAM NVS: DP palpable, PT nonpalpable, CFT 3 seconds; right Dressing: Patient presents wearing pneumatic Aircast in wheelchair Clinical findings: Minimal edema, no erythema, no rubor: Right midfoot Clinical correction; tenderness on palpation over navicular right X-ray: Today's x-ray compared to baseline x-rays from beginning of December appears to show displacement of navicular fracture ASSESSMENT Diagnosis (S92.251G) Closed displaced fracture of navicular bone of right foot with delayed healing, subsequent encounter (primary encounter diagnosis) No orders found for this visit on 01/19/25. PLAN OV, discussed current status, progress, prognosis. Reviewed sequence of x-rays with patient and her , discussed changes, discussed possible concerns including nonunion or possible AVN, discussed possible surgical intervention and explained that I do not do this type of procedure and I would refer them to the foot and ankle orthopedist who does perform these type of procedures. Patient and her are in agreement with this plan and I have made appropriate referral to Dr. Hall FOLLOW-UP: No follow-ups on file. SIGNATURE: Beverly Franco DPM PATIENT NAME: Jesus Wolf DATE: January 19, 2025 TIME: 2:05 PM Beverly Franco DPM documented in this encounter [facility] 01-19-2025 History of Present illness Narrative Radiology Service Progress Note PATIENT NAME: Jesus Wolf DATE OF SERVICE: January 19, 2025 TIME: 1:23 PM PATIENT IDENTITY VERIFICATION COMPLETED USING TWO (2) IDENTIFIERS: Name and Date of confirmed by patient verbally. FALL SCREENING: Has the patient had 2 falls in the last year or 1 fall with injury or currently using an Ambulatory Assistive Device (Walker, Cane, Wheelchair, Crutches, etc.)? No PATIENT GENDER DATA: Assigned female at . status: : No status: NO. PATIENT RELEVANT IMPLANT DATA REVIEWED: Not Applicable PATIENT PRESENTS WITH AN IMPLANTABLE OR ATTACHED MINESWEEPING OFFICER: No RADIOLOGY DEPARTMENT: General X-ray: Exam(s) Completed: Lower Extremity X-Ray(s): Foot, Right and Wt. Bearing PERIPHERAL IV DATA: Not applicable SIGNED BY: SANAM Aguilera) January 19, 2025 1:23 PM documented in this encounter [facility] 01-19-2025 Note HNO ID: [id number] Author: CHICO GOMEZ RT(R) Service: Radiology Author Type: Technologist Type: Progress Notes Filed: 01/19/2025 13:29 Note Text: Radiology Service Progress Note PATIENT NAME: Jesus Wolf DATE OF SERVICE: January 19, 2025 TIME: 1:23 PM PATIENT IDENTITY VERIFICATION COMPLETED USING TWO (2) IDENTIFIERS: Name and Date of confirmed by patient verbally. FALL SCREENING: Has the patient had 2 falls in the last year or 1 fall with injury or currently using an Ambulatory Assistive Device (Walker, Cane, Wheelchair, Crutches, etc.)? No PATIENT GENDER DATA: Assigned female at . status: : No status: NO. PATIENT RELEVANT IMPLANT DATA REVIEWED: Not Applicable PATIENT PRESENTS WITH AN IMPLANTABLE OR ATTACHED MINESWEEPING OFFICER: No RADIOLOGY DEPARTMENT: General X-ray: Exam(s) Completed: Lower Extremity X-Ray(s): Foot, Right and Wt. Bearing PERIPHERAL IV DATA: Not applicable SIGNED BY: JEANNIE AguileraR) January 19, 2025 1:23 PM [facility] 01-18-2025 Instructions Curtis Ogden APRN.RESPIRATORY CLINICIAN - 01/18/2025 3:39 PM EDT We discussed your recurrent nosebleeds: - During today s visit, I identified the source of your nosebleeds and performed a cauterization procedure using silver nitrate to stop the bleeding. This procedure is about 60-80% effective, though the success rate is lower due to your use of Eliquis. - I also placed absorbable gauze (Surgicel) in your nose to help control any residual bleeding. This gauze will dissolve on its own and does not need to be removed. - I prescribed an antibiotic ointment to help the area heal. Please apply a pea-sized amount to both nostrils 2-3 times daily for 10 days. Use your fingertip to gently spread the ointment inside your nose. Do not use a Q-tip or insert anything deep into your nostrils. - Avoid blowing your nose on the treated side until I see you for follow-up. If you must blow your nose, block the treated side and blow gently from the other nostril. - You may experience mild bleeding over the next two weeks as the area heals. If bleeding occurs: - Use Afrin (nasal decongestant) only during active bleeding. Soak a cotton ball with Afrin, place it in the bleeding nostril, and apply your nasal clamp for 5-10 minutes. Do not remove the clamp early. If bleeding persists after three attempts, go to the ER. - Keep your head tilted forward to avoid swallowing blood, which can cause nausea or vomiting. - Do not use Afrin on a routine basis, as it can irritate your nasal tissues and worsen symptoms over time. We discussed follow-up care: - I scheduled a follow-up appointment for May 27, at 8:50 AM to check the healing process and ensure there are no complications. Please avoid blowing your nose on the treated side until this visit. - If you notice a foul odor, increased pain, or unusual drainage from your nose, or if someone comments on bad breath, contact our office immediately, as this could indicate an infection. Your pharmacy is [facility], and the antibiotic ointment prescription has been sent there. You may receive a text notification when it is ready for pickup. If you experience heavy bleeding that does not stop after following the Afrin and nasal clamp instructions, please go to the ER. If you have any questions or concerns before your follow-up, feel free to contact our office. documented in this encounter [facility] 01-18-2025 Note HNO ID: [id number] Author: CURTIS OGDEN APRN.JOHNATHAN Service: ? Author Type: Nurse Practitioner Type: Progress Notes Filed: 01/18/2025 15:39 Note Text: Recording using [employer] software for draft documentation of the visit was discussed with the patient/authorized professional healthcare representative; all questions welcomed and answered. Patient/authorized professional healthcare representative agreed to proceed Ms. Wolf is a 69 year old female who comes in for evaluation of nosebleeds. Jesus is a 69-year-old female, with a history of A-fib and A-flutter, presenting with recurrent epistaxis. Jesus reports recurrent epistaxis, primarily from the left nostril, with a significant episode in October 2019 requiring ER visit and nasal packing for 3 days. She has experienced intermittent episodes since, with increased frequency during the winter. The most recent severe episode occurred last month, lasting approximately 30 minutes, causing gagging and necessitating another ER visit where nasal clamping was performed. Last night, she experienced another episode upon sitting up in bed, with blood gushing from her left nostril. She denies associated cephalalgia, dizziness, or nausea, but occasionally feels pressure in the nasal area. She is currently on Eliquis for A-fib and A-flutter and denies taking aspirin. She has been using Afrin nasal spray intermittently, approximately every other day, but not on a routine basis. She denies allergies to lidocaine or decongestants. Past history : PAST MEDICAL HISTORY Diagnosis Date Atrial fibrillation (HCC) on coumadin Herniated intervertebral disk HTN (hypertension) Hyperlipemia Kidney disease MONI (obstructive sleep apnea) no longer using CPAP since 60 lb weight loss Other acute pancreatitis with uninfected necrosis (HCC) SLE (systemic lupus erythematosus) (HCC) Current medication: Current Outpatient Medications Medication Sig alendronate (FOSAMAX) 70 mg tablet Take 1 tablet by mouth one time a week. In the morning with a full glass of water, on an empty stomach. Do not take anything else by mouth or lie down for the next 30 minutes. Mesalamine (LIALDA) 1.2 gram EC tablet Take 4 tablets by mouth once daily. hydrOXYchloroQUINE (PLAQUENIL) 200 mg tablet take 1 tablet by mouth twice a day with food ferrous sulfate (IRON) 325 mg (65 mg iron) tablet Take 1 tablet by mouth once daily. colestipol (COLESTID) 1 gram tablet TAKE 3 TABLETS BY MOUTH TWICE DAILY pantoprazole DR (PROTONIX) 40 mg tablet Take 1 tablet by mouth twice daily amiodarone (PACERONE) 200 mg tablet Take 300 mg by mouth once daily. Patient reports 300 mg by mouth daily metoprolol succinate ER (TOPROL XL) 50 mg 24 hr tablet TAKE 1 TABLET BY MOUTH IN THE MORNING AND 2 TABLETS BY MOUTH IN THE EVENING ELIQUIS 5 mg tab(s) Take 5 mg by mouth twice daily. acetaminophen (TYLENOL) 500 mg tablet Take 1 tablet by mouth every 4 hours as needed for pain. ryrbkle-sefcvpnst-ejjglxs D3 500 mg-5 mcg (200 unit) per tablet Take 1 tablet by mouth three times daily. MV with Xyc-Ifjutynb-Dllecx (CENTRUM SILVER) 0.4 mg-300 mcg- 250 mcg [...] mg tablet Take 10 mg by mouth two times a day. Cholecalciferol, Vitamin D3, 2,000 unit cap Take by mouth once daily. vitamin b complex(B COMPLEX TAB) one daily multivitamins w-minerals/lut(CENTRUM SILVER TAB) Take one(1) tablet daily. No current facility-administered medications for this visit. Allergies: ALLERGIES Allergen Reactions Dofetilide Other: See Comments, [...] Comments red spot in area of shot Social history: Social History Tobacco Use Smoking status: Never Smokeless tobacco: Never Vaping Use Vaping status: Never Used Substance Use Topics Alcohol use: Yes Comment: very rare Drug use: No Comment: denies tx for drug/alcohol abuse in the past. (more content not included)... [facility] 01-18-2025 History of Present illness Narrative Recording using [employer] software for draft documentation of the visit was discussed with the patient/authorized professional healthcare representative; all questions welcomed and answered. Patient/authorized professional healthcare representative agreed to proceed Ms. Wolf is a 69 year old female who comes in for evaluation of nosebleeds. Jesus is a 69-year-old female, with a history of A-fib and A-flutter, presenting with recurrent epistaxis. Jesus reports recurrent epistaxis, primarily from the left nostril, with a significant episode in October 2019 requiring ER visit and nasal packing for 3 days. She has experienced intermittent episodes since, with increased frequency during the winter. The most recent severe episode occurred last month, lasting approximately 30 minutes, causing gagging and necessitating another ER visit where nasal clamping was performed. Last night, she experienced another episode upon sitting up in bed, with blood gushing from her left nostril. She denies associated cephalalgia, dizziness, or nausea, but occasionally feels pressure in the nasal area. She is currently on Eliquis for A-fib and A-flutter and denies taking aspirin. She has been using Afrin nasal spray intermittently, approximately every other day, but not on a routine basis. She denies allergies to lidocaine or decongestants. Past history : PAST MEDICAL HISTORY Diagnosis Date Atrial fibrillation (HCC) on coumadin Herniated intervertebral disk HTN (hypertension) Hyperlipemia Kidney disease MONI (obstructive sleep apnea) no longer using CPAP since 60 lb weight loss Other acute pancreatitis with uninfected necrosis (HCC) SLE (systemic lupus erythematosus) (HCC) Current medication: Current Outpatient Medications Medication Sig alendronate (FOSAMAX) 70 mg tablet Take 1 tablet by mouth one time a week. In the morning with a full glass of water, on an empty stomach. Do not take anything else by mouth or lie down for the next 30 minutes. Mesalamine (LIALDA) 1.2 gram EC tablet Take 4 tablets by mouth once daily. hydrOXYchloroQUINE (PLAQUENIL) 200 mg tablet take 1 tablet by mouth twice a day with food ferrous sulfate (IRON) 325 mg (65 mg iron) tablet Take 1 tablet by mouth once daily. colestipol (COLESTID) 1 gram tablet TAKE 3 TABLETS BY MOUTH TWICE DAILY pantoprazole DR (PROTONIX) 40 mg tablet Take 1 tablet by mouth twice daily amiodarone (PACERONE) 200 mg tablet Take 300 mg by mouth once daily. Patient reports 300 mg by mouth daily metoprolol succinate ER (TOPROL XL) 50 mg 24 hr tablet TAKE 1 TABLET BY MOUTH IN THE MORNING AND 2 TABLETS BY MOUTH IN THE EVENING ELIQUIS 5 mg tab(s) Take 5 mg by mouth twice daily. acetaminophen (TYLENOL) 500 mg tablet Take 1 tablet by mouth every 4 hours as needed for pain. fwxfakb-uwxwpfgkm-mwqnjkk D3 500 mg-5 mcg (200 unit) per tablet Take 1 tablet by mouth three times daily. MV with Dna-Wnpgvjvb-Vxsjqk (CENTRUM SILVER) 0.4 mg-300 mcg- 250 mcg [...] mg tablet Take 10 mg by mouth two times a day. Cholecalciferol, Vitamin D3, 2,000 unit cap Take by mouth once daily. vitamin b complex(B COMPLEX TAB) one daily multivitamins w-minerals/lut(CENTRUM SILVER TAB) Take one(1) tablet daily. No current facility-administered medications for this visit. Allergies: ALLERGIES Allergen Reactions Dofetilide Other: See Comments, [...] Comments red spot in area of shot Social history: Social History Tobacco Use Smoking status: Never Smokeless tobacco: Never Vaping Use Vaping status: Never Used Substance Use Topics Alcohol use: Yes Comment: very rare Drug use: No Comment: denies tx for drug/alcohol abuse in the past. Family history: FAMILY HISTORY Problem Relation Age of Onset Alzheimer's Disease Father Hypertension Father Cataract Mother Hypertension Mother Colon Cancer Mother Cataract Sister Hypertension Sister Colon Cancer Paternal Uncle There are no exam notes on file for this visit. Physical exam: General Appearance: 69 year old female is alert, oriented, not in acute distress. Hearing is grossly normal, voice is clear. There is no tenderness with percussion over the paranasal sinuses. Eyes: PEERLA, extraocular movements are full. Nose: There is a left septal bleeder abutting the inferior turbinate. Septum is straight. There are no polyps. There is no discharge. Oropharynx: Teeth are in good repair. Lips, gums, tongue and posterior pharynx are within normal limits. Gag reflex is intact. Nasopharynx: Within normal limits, no masses or discharge noted. Hypopharynx: Within normal limits. Both vocal cords are mobile. No lesions seen. Neck: No masses palpated. Thyroid is not enlarged. Trachea is in the midline. Ears: Both ear canals are clean. Both TMs are intact and mobile. Keller is in the midline. Rinne is positive bilaterally. Air conduction is equal bilaterally. Management options were discussed with the patint including cauterization of the left anterior septal bleeder with silver nitrate.The risks, benefits, possible complications, alternative management options, personnel and confidentiality was discussed and questions were answered. Patient wishes to proceed with the recommended procedure. Procedure: After the procedure was explained to the patient and patient agreed to have the procedure done 4% Xylocaine soaked cotton pledget was placed against the left anterior septal bleeder. After adequate anesthesia was obtained bleeder was cauterized with silver nitrate. Surgicel was also applied to cauterized area as the septal bleeder was quite large. Patient had immediate resolution of bleeding with application of Surgicel. Patient will use saline nasal spray for the next week to [address] her on bactroban ointment 2-3 times daily x 10 days. Patient will have followup as needed in case of persistence or recurrence of problem. Assessment and plan 1. Left-sided epistaxis (R04.0) Recurrent, severe epistaxis originating from the left nostril, with the most recent episode occurring last night. Previous episodes required emergency department intervention, including nasal packing. Examination revealed a bleeding site on the nasal septum, located posteriorly. - Performed chemical cauterization using silver nitrate. - Applied Afrin-soaked cotton to achieve vasoconstriction and control bleeding. - Inserted Surgicel to provide additional hemostasis. - Prescribed antibiotic ointment to be applied intranasally 2-3 times daily for 10 days to promote healing and prevent infection. - Advised against routine use of Afrin; instructed to use only during active bleeding by soaking a cotton ball and applying it to the affected nostril with a clamp for 10 minutes. - Scheduled follow-up appointment on Thursday, at 0850 to reassess and ensure resolution. 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 - Discussed increased risk of recurrent epistaxis due to anticoagulation therapy. - Emphasized the importance of following epistaxis management instructions to minimize bleeding risks. Curtis Ogden APRN.RESPIRATORY CLINICIAN documented in this encounter [facility] 12-29-2024 History of Present illness Narrative Subjective Patient ID: Jesus Wolf is a 69 y.o. female. Jesus presents for recheck of multiple problems. She does have a new problem. She has a rash under both breasts. She has tried benadryl, HCTZ cream medicated powder but it isn't helping.It is itchy. It started 3-4 weeks ago. She went to screening tech and she was diagnosed with a comminuted navicular fracture and is wearing a boot. Her pushes her around in a wheelchair. She saw the film editor supervisor and he recommended she stay on Eliquis even though she has a watchman in place. She occasionally has palpitations. The following portions of the patient's history were reviewed and updated as appropriate: allergies, current medications, past family history, past medical history, past social history, past surgical history, problem list, and medication reconciliation was completed including current medication and post discharge medication. Review of Systems Constitutional: Positive for fatigue. Eyes: Positive for visual disturbance. Respiratory: Positive for shortness of breath. Negative for chest tightness. Cardiovascular: Positive for palpitations. Genitourinary: Negative. Musculoskeletal: Positive for arthralgias, back pain, gait problem, joint swelling and myalgias. Skin: Positive for rash. Psychiatric/Behavioral: Negative. Objective Physical Exam Vitals reviewed. Constitutional: General: She is not in acute distress. Appearance: She is not ill-appearing. HENT: Head: Normocephalic. Cardiovascular: Rate and Rhythm: Normal rate and regular rhythm. Heart sounds: Normal heart sounds. No murmur heard. Pulmonary: Effort: Pulmonary effort is normal. No respiratory distress. Breath sounds: Normal breath sounds. Musculoskeletal: Cervical back: Neck supple. Comments: Right foot in boot Skin: Findings: Rash (Erythematous rash under bilateral breasts with satellite lesions consistent with intertrigo) present. Neurological: General: No focal deficit present. Mental Status: She is alert and oriented to person, place, and time. Gait: Gait abnormal (in a wheelchair). Assessment/Plan Jesus was seen today for follow-up. Diagnoses and all orders for this visit: Intertrigo Consistent with candidal infection. Will treat with nystatin powder. Essential hypertension Blood pressure at goal continue current regimen Closed nondisplaced fracture of navicular bone of right foot with routine healing, subsequent encounter follow-up with screening tech as directed Paroxysmal atrial fibrillation ([facility] [place]) seems to be in sinus rhythm now. Continue Eliquis Obesity, morbid ([facility] [place]) She is obese. She would benefit from weight loss. Diet exercise and weight loss discussed. She did not do any aerobic exercise right now due to a broken foot Chronic depression stable. Continue current regimen Other orders - nystatin (MYCOSTATIN) powder; Apply 1 Application topically in the morning and 1 Application at noon and 1 Application in the evening and 1 Application before bedtime. documented in this encounter [facility] 12-22-2024 Note HNO ID: [id number] Author: WILL GREER MD Service: ? Author Type: Physician Type: Progress Notes Filed: 12/22/2024 13:07 Note Text: Pulmonary Consult Patient Name: Jesus Wolf PRIMARY CARE PHYSICIAN: Wojciech Treviño MD, DO REASON FOR CONSULT: Shortness of breath REQUESTING PHYSICIAN: Dione Frances MD My final recommendations will be communicated to the requesting health care provider by way of the shared medical record for internal providers or letter via the [employer] for external providers. ASSESSMENT AND PLAN: I discussed the plan in detail with the patient ASSESSMENT/PLAN: 1. Chronic diastolic congestive heart failure (HCC) - ICD9: 428.32, 428.0, ICD10: I50.32 (primary diagnosis) 2. Pulmonary hypertension (HCC) - ICD9: 416.8, ICD10: I27.20 3. Obstructive sleep apnea syndrome - ICD9: 327.23, ICD10: G47.33 4. Obesity, Class III, BMI >= 40 - ICD9: 278.01, ICD10: E66.813 69-year-old woman seen for evaluation of shortness of breath. She has had a relatively extensive workup to this point. For now, I think her shortness of breath is multifactorial. She has grade 2 diastolic dysfunction, untreated obstructive sleep apnea, and evidence of pulmonary hypertension on her echocardiogram. I suspect there is also a component of deconditioning. I will work to obtain her outside sleep study and see if she could be a candidate for an inspire device as she is intolerant of positive pressure therapy. I have the report from her recent chest CT but we will work to obtain the images of this. I will also discuss her echocardiogram findings with our pulmonary hypertension specialist. CHIEF COMPLAINT: Shortness of breath HISTORY OF PRESENT ILLNESS: Jesus Wolf is a 69 year old female, There were no vitals taken for this visit., with a history of shortness of breath which has gotten progressively worse over the past year. She has a history of atrial fibrillation and has undergone several ablations for this. She is currently on amiodarone for this and has been in rhythm. She tells me she gets quite symptomatic and shortness of breath (even more so) when in atrial fibrillation. She denies significant cough. She denies chest pain. She is able to ambulate and climb a flight of stairs but finds this difficult due to dyspnea. She has lupus and is limited by musculoskeletal pain as well. She does complain of orthopnea. She denies significant lower extremity edema and is on Lasix. She has a history of obstructive sleep apnea but has been intolerant of positive pressure therapy for this. PAST MEDICAL HISTORY Diagnosis Date Atrial fibrillation (HCC) on coumadin Herniated intervertebral disk HTN (hypertension) Hyperlipemia Kidney disease MONI (obstructive sleep apnea) no longer using CPAP since 60 lb weight loss Other acute pancreatitis with uninfected necrosis (HCC) SLE (systemic lupus erythematosus) (HCC) PAST SURGICAL HISTORY Procedure Laterality Date APPENDECTOMY CARPAL TUNNEL RIGHT WRIST surgical correction COLONOSCOPY 05/10/2019 [facility] COLONOSCOPY GEN ANES 07/23/2020 Dr. Frances/Diverticulosis/Hemorrhoids/ Ulcerative Colitis/Rpt in 2 yrs. COLONOSCOPY SCREENING 03/2023 EGD EUS 01/11/2020 [facility] LASIK Right prior to 1999 MRI PANC/JEANIE WO/W IVCON 12/20/2019 [facility]ST[facility]OM[facility] PAST SURGICAL HISTORY OF 07/2013 bilateral foot procedure, [place] PAST SURGICAL HISTORY OF Ablation X2 TONSILLECTOMY HX FAMILY HISTORY Problem Relation Age of Onset Alzheimer's Disease Father Hypertension Father Cataract Mother Hypertension Mother Colon Cancer Mother Cataract Sister Hypertension Sister Colon Cancer Paternal Uncle Social History Tobacco Use Smoking status: Never Smokeless tobacco: Never Vaping Use Vaping status: Never Used Substance Use Topics Alcohol use: Yes Comment: very rare Drug use: No Comment: denies tx for drug/alcohol abuse in the past. ALLERGIES: ALLERGIES Allergen Reactions Dofetilide Other: See [...] Comments red spot in area of shot CURRENT OUTPATIENT MEDICATIONS: alendronate (FOSAMAX) 70 mg tablet Take 1 tablet by mouth one time a week. In the morning with a full glass of water, on an empty stomach. Do not take anything else by mouth or lie down for the next 30 minutes. Mesalamine (LIALDA) 1.2 gram EC tablet Take (more content not included)... [facility] 12-22-2024 History of Present illness Narrative Images from the original note were not included. Pulmonary Consult Patient Name: Jesus Wolf PRIMARY CARE PHYSICIAN: Wojciech Treviño MD, DO REASON FOR CONSULT: Shortness of breath REQUESTING PHYSICIAN: Dione Frances MD My final recommendations will be communicated to the requesting health care provider by way of the shared medical record for internal providers or letter via the [employer] for external providers. ASSESSMENT AND PLAN: I discussed the plan in detail with the patient ASSESSMENT/PLAN: 1. Chronic diastolic congestive heart failure (HCC) - ICD9: 428.32, 428.0, ICD10: I50.32 (primary diagnosis) 2. Pulmonary hypertension (HCC) - ICD9: 416.8, ICD10: I27.20 3. Obstructive sleep apnea syndrome - ICD9: 327.23, ICD10: G47.33 4. Obesity, Class III, BMI >= 40 - ICD9: 278.01, ICD10: E66.813 69-year-old woman seen for evaluation of shortness of breath. She has had a relatively extensive workup to this point. For now, I think her shortness of breath is multifactorial. She has grade 2 diastolic dysfunction, untreated obstructive sleep apnea, and evidence of pulmonary hypertension on her echocardiogram. I suspect there is also a component of deconditioning. I will work to obtain her outside sleep study and see if she could be a candidate for an inspire device as she is intolerant of positive pressure therapy. I have the report from her recent chest CT but we will work to obtain the images of this. I will also discuss her echocardiogram findings with our pulmonary hypertension specialist. CHIEF COMPLAINT: Shortness of breath HISTORY OF PRESENT ILLNESS: Jesus Wolf is a 69 year old female, There were no vitals taken for this visit., with a history of shortness of breath which has gotten progressively worse over the past year. She has a history of atrial fibrillation and has undergone several ablations for this. She is currently on amiodarone for this and has been in rhythm. She tells me she gets quite symptomatic and shortness of breath (even more so) when in atrial fibrillation. She denies significant cough. She denies chest pain. She is able to ambulate and climb a flight of stairs but finds this difficult due to dyspnea. She has lupus and is limited by musculoskeletal pain as well. She does complain of orthopnea. She denies significant lower extremity edema and is on Lasix. She has a history of obstructive sleep apnea but has been intolerant of positive pressure therapy for this. PAST MEDICAL HISTORY Diagnosis Date Atrial fibrillation (HCC) on coumadin Herniated intervertebral disk HTN (hypertension) Hyperlipemia Kidney disease MONI (obstructive sleep apnea) no longer using CPAP since 60 lb weight loss Other acute pancreatitis with uninfected necrosis (HCC) SLE (systemic lupus erythematosus) (HCC) PAST SURGICAL HISTORY Procedure Laterality Date APPENDECTOMY CARPAL TUNNEL RIGHT WRIST surgical correction COLONOSCOPY 05/10/2019 [facility] COLONOSCOPY GEN ANES 07/23/2020 Dr. Frances/Diverticulosis/Hemorrhoids/ Ulcerative Colitis/Rpt in 2 yrs. COLONOSCOPY SCREENING 03/2023 EGD EUS 01/11/2020 [facility] LASIK Right prior to [...] Never Smokeless tobacco: Never Vaping Use Vaping status: Never Used Substance Use Topics Alcohol use: Yes Comment: very rare Drug use: No Comment: denies tx for drug/alcohol abuse in the past. ALLERGIES: ALLERGIES Allergen Reactions Dofetilide Other: See [...] Comments red spot in area of shot CURRENT OUTPATIENT MEDICATIONS: alendronate (FOSAMAX) 70 mg tablet Take 1 tablet by mouth one time a week. In the morning with a full glass of water, on an empty stomach. Do not take anything else by mouth or lie down for the next 30 minutes. Mesalamine (LIALDA) 1.2 gram EC tablet Take 4 tablets by mouth once daily. hydrOXYchloroQUINE (PLAQUENIL) 200 mg tablet take 1 tablet by mouth twice a day with food ferrous sulfate (IRON) 325 mg (65 mg iron) tablet Take 1 tablet by mouth once daily. colestipol (COLESTID) 1 gram tablet TAKE 3 TABLETS BY MOUTH TWICE DAILY pantoprazole DR (PROTONIX) 40 mg tablet Take 1 tablet by mouth twice daily amiodarone (PACERONE) 200 mg tablet Take 300 mg by mouth once daily. Patient reports 300 mg by mouth daily metoprolol succinate ER (TOPROL XL) 50 mg 24 hr tablet TAKE 1 TABLET BY MOUTH IN THE MORNING AND 2 TABLETS BY MOUTH IN THE EVENING ELIQUIS 5 mg tab(s) Take 5 mg by mouth twice daily. acetaminophen (TYLENOL) 500 mg tablet Take 1 tablet by mouth every 4 hours as needed for pain. ghwiftt-kuitaszwu-egltuon D3 500 mg-5 mcg (200 unit) per tablet Take 1 tablet by mouth three times daily. MV with Mlu-Mnekgpxe-Xkwttk (CENTRUM SILVER) 0.4 mg-300 mcg- 250 mcg [...] mg tablet Take 10 mg by mouth two times a day. Cholecalciferol, Vitamin D3, 2,000 unit cap Take by mouth once daily. vitamin b complex(B COMPLEX TAB) one daily multivitamins w-minerals/lut(CENTRUM SILVER TAB) Take one(1) tablet daily. REVIEW OF SYSTEMS: HEENT: negative RESPIRATORY: dyspnea CONSTITUTIONAL: No acute distress. CARDIOVASCULAR: negative for chest pain, leg swelling or palpitations. GASTROINTESTINAL: negative for abdominal discomfort, No blood in stools or black stools MUSCULOSKELETAL: positive for joint pain or swelling, back pain or muscle pain. NEUROLOGIC:Negative for focal numbness or weakness, headaches and dizziness or syncope. SKIN:Negative for lesions, rash, and itching. PSYCHIATRIC: Negative for sleep disturbance, mood disorder and recent psychosocial stressors HEMATOLOGIC/LYMPHATIC/IMMUNOLOGIC: Negative for cold or heat intolerance, polyuria, polydipsia and goiter. The remainder of the ROS was negative. PHYSICAL EXAM: BP 118/70 Pulse 78 Temp (Src) 97.3 (Temporal) Resp 20 SpO2 96[RA]% LMP 07/17/2011 General appearance: Well appearing, alert, in no acute distress, well-hydrated, well nourished. Lungs: Lungs clear to auscultation. No wheezing, rhonchi, rales Heart: RRR without murmur, gallop, or rubs. No ectopy Extremities: Normal, Warm, No cyanosis, no clubbing, No edema, and Nontender DATA: Diagnostic tests reviewed for today's visit, films/specimens were personally reviewed by me: Pulmonary function testing 08/29/2024 Spirometry shows no evidence of obstructive lung disease. There is no significant bronchodilator response. Lung volumes show evidence of restriction. Diffusion capacity is within normal limits. CTA chest 09/15/24 PHYLLIS 09/19/24 Return in about 3 months (around 03/24/2025). documented in this encounter [facility] 12-21-2024 Note HNO ID: [id number] Author: BEVERLY FRANCO DPM Service: ? Author Type: Physician Type: Progress Notes Filed: 12/21/2024 13:17 Note Text: SERVICE DATE: December 21, 2024 PCP: Wojciech Treviño MD, DO Subjective Patient ID: Jesus is a 69 year old female. Patient presents today accompanied by her with complaint of pain and swelling of her right foot and ankle Chief Complaint: Patient presents with: Ankle Pain: Right Swelling: Right foot and ankle Foot Pain (Midfoot): Dorsal midfoot PAIN EVALUATION 12/21/2024 1218 Pain Level: 10 Pain Location: Foot-Right Description: Aching;Dull;Stabbing;Sharp;Burning Duration Units: Weeks Frequency: Continuous HPI patient provides history that about 3 weeks ago she tripped going up a curb and started develop pain and swelling about a week and a half ago. She saw her PCP after the injury. Patient states that she has had bunion surgery on the right with a fusion of the big toe, and knows that she has severe arthritis in both feet. She presents today in wheelchair stating that her pain is 10/10. Patient is anticoagulated with Eliquis TREATMENTS PRIOR TO INITIAL CONSULT: Patient utilized ice inconsistently and elevation Review of Systems ACTIVE PROBLEM LIST Edema [...] Thoracic Ascending Aortic Aneurysm Hypercalcemia Hyperparathyroid (Hcc) Thin Blood PAST MEDICAL HISTORY Diagnosis Date Arrhythmia Atrial fibrillation (HCC) on coumadin Herniated intervertebral disk HTN (hypertension) Hyperlipemia Kidney disease MONI (obstructive sleep apnea) no longer using CPAP since 60 lb weight loss Other acute pancreatitis with uninfected necrosis (HCC) SLE (systemic lupus erythematosus) (HCC) Sleep apnea 07/29/2012 PAST SURGICAL HISTORY Procedure Laterality Date APPENDECTOMY CARPAL TUNNEL RIGHT WRIST surgical correction COLONOSCOPY 05/10/2019 [facility] COLONOSCOPY GEN ANES 07/23/2020 Dr. Frances/Diverticulosis/Hemorrhoids/ Ulcerative Colitis/Rpt in 2 yrs. COLONOSCOPY SCREENING 03/2023 EGD EUS 01/11/2020 [facility] LASIK Right prior to [...] Never Smokeless tobacco: Never Vaping Use Vaping status: Never Used Substance Use Topics Alcohol use: Yes Comment: [...] red spot in area of shot MEDICATIONS: alendronate (FOSAMAX) 70 mg tablet Take 1 tablet by mouth one time a week. In the morning with a full glass of water, on an empty stomach. Do not take anything else by mouth or lie down for the next 30 minutes. Mesalamine (LIALDA) 1.2 gram EC tablet Take 4 tablets by mouth once daily. hydrOXYchloroQUINE (PLAQUENIL) 200 mg tablet take 1 tablet by mouth twice a day with food ferrous sulfate (IRON) 325 mg (65 mg iron) tablet Take 1 tablet by mouth once daily. colestipol (COLESTID) 1 gram tablet TAKE 3 TABLETS BY MOUTH TWICE REGAN (more content not included)... [facility] 12-21-2024 History of Present illness Narrative SERVICE DATE: December 21, 2024 PCP: Wojciech Treviño MD, DO Subjective Patient ID: Jesus is a 69 year old female. Patient presents today accompanied by her with complaint of pain and swelling of her right foot and ankle Chief Complaint: Patient presents with: Ankle Pain: Right Swelling: Right foot and ankle Foot Pain (Midfoot): Dorsal midfoot PAIN EVALUATION 12/21/2024 1218 Pain Level: 10 Pain Location: Foot-Right Description: Aching;Dull;Stabbing;Sharp;Burning Duration Units: Weeks Frequency: Continuous HPI patient provides history that about 3 weeks ago she tripped going up a curb and started develop pain and swelling about a week and a half ago. She saw her PCP after the injury. Patient states that she has had bunion surgery on the right with a fusion of the big toe, and knows that she has severe arthritis in both feet. She presents today in wheelchair stating that her pain is 10/10. Patient is anticoagulated with Eliquis TREATMENTS PRIOR TO INITIAL CONSULT: Patient utilized ice inconsistently and elevation Review of Systems ACTIVE PROBLEM LIST Edema [...] Thoracic Ascending Aortic Aneurysm Hypercalcemia Hyperparathyroid (Hcc) Thin Blood PAST MEDICAL HISTORY Diagnosis Date Arrhythmia Atrial fibrillation (HCC) on coumadin Herniated intervertebral disk HTN (hypertension) Hyperlipemia Kidney disease MONI (obstructive sleep apnea) no longer using CPAP since 60 lb weight loss Other acute pancreatitis with uninfected necrosis (HCC) SLE (systemic lupus erythematosus) (HCC) Sleep apnea 07/29/2012 PAST SURGICAL HISTORY Procedure Laterality Date APPENDECTOMY CARPAL TUNNEL RIGHT WRIST surgical correction COLONOSCOPY 05/10/2019 [facility] COLONOSCOPY GEN ANES 07/23/2020 Dr. Frances/Diverticulosis/Hemorrhoids/ Ulcerative Colitis/Rpt in 2 yrs. COLONOSCOPY SCREENING 03/2023 EGD EUS 01/11/2020 [facility] LASIK Right prior to [...] Never Smokeless tobacco: Never Vaping Use Vaping status: Never Used Substance Use Topics Alcohol use: Yes Comment: [...] red spot in area of shot MEDICATIONS: alendronate (FOSAMAX) 70 mg tablet Take 1 tablet by mouth one time a week. In the morning with a full glass of water, on an empty stomach. Do not take anything else by mouth or lie down for the next 30 minutes. Mesalamine (LIALDA) 1.2 gram EC tablet Take 4 tablets by mouth once daily. hydrOXYchloroQUINE (PLAQUENIL) 200 mg tablet take 1 tablet by mouth twice a day with food ferrous sulfate (IRON) 325 mg (65 mg iron) tablet Take 1 tablet by mouth once daily. colestipol (COLESTID) 1 gram tablet TAKE 3 TABLETS BY MOUTH TWICE DAILY pantoprazole DR (PROTONIX) 40 mg tablet Take 1 tablet by mouth twice daily amiodarone (PACERONE) 200 mg tablet Take 300 mg by mouth once daily. Patient reports 300 mg by mouth daily metoprolol succinate ER (TOPROL XL) 50 mg 24 hr tablet TAKE 1 TABLET BY MOUTH IN THE MORNING AND 2 TABLETS BY MOUTH IN THE EVENING ELIQUIS 5 mg tab(s) Take 5 mg by mouth twice daily. acetaminophen (TYLENOL) 500 mg tablet Take 1 tablet by mouth every 4 hours as needed for pain. vvsumjl-rurjqwmoo-icgnifz D3 500 mg-5 mcg (200 unit) per tablet Take 1 tablet by mouth three times daily. MV with Oap-Atjxhxpp-Drcibu (CENTRUM SILVER) 0.4 mg-300 mcg- 250 mcg [...] mg tablet Take 10 mg by mouth two times a day. Cholecalciferol, Vitamin D3, 2,000 unit cap Take by mouth once daily. vitamin b complex(B COMPLEX TAB) one daily multivitamins w-minerals/lut(CENTRUM SILVER TAB) Take one(1) tablet daily. Allergies, medications, past surgical history, family history and past medical history were reviewed per this encounter. PHYSICAL EXAM O: DP palpable, PT nonpalpable right. Neurological: Intact epicritic sensation with no reproducible neuritic symptoms right Hair: Absent right. Temp: Warm to tepid tibia to toes right Skin: Shiny, poor turgor right. Clinical: Edema right ankle, foot. +10 on 10 pain with light compression at navicular and midfoot. X-Ray: Positive for fracture of the navicular which was not seen in the last x-ray by comparison (previous x-ray was 07/02/2023). Patient has plate and screw fixation of right first MTPJ consistent with her history and significant osteoarthritic changes through the midfoot which appear to be relatively unchanged as compared to previous x-rays Assessment/Plan ASSESSMENT Diagnosis (S93.601A) Sprain of right foot, initial encounter (primary encounter diagnosis) Plan: ROLLING WALKER (S92.254A) Closed nondisplaced fracture of navicular bone of right foot, initial encounter Plan: ROLLING WALKER (M19.071) Osteoarthritis of midtarsal joint of right foot Plan: ROLLING WALKER Office Visit on 12/21/24 ROLLING WALKER PLAN Reviewed complaint, pathology, etiology, x-rays, anatomy, treatment options conservative and surgical, prognosis, short and long chain beamer expectations, and benefit, and potential risks and complications associated with current condition as well as each related treatment option. Patient immobilized with pneumatic Aircast dispensed through [employer]. I have provided a order for rolling knee walker. FOLLOW-UP: 4 weeks with repeat weightbearing x-ray at that time SIGNATURE: Beverly Franco DPM PATIENT NAME: Jesus Wolf DATE: December 21, 2024 TIME: 1:06 PM Beverly Franco DPM documented in this encounter [facility] 12-21-2024 History of Present illness Narrative Radiology Service Progress Note PATIENT NAME: Jesus Wolf DATE OF SERVICE: December 21, 2024 TIME: 12:03 PM PATIENT IDENTITY VERIFICATION COMPLETED USING TWO (2) IDENTIFIERS: Name and Date of confirmed by patient verbally. FALL SCREENING: Has the patient had 2 falls in the last year or 1 fall with injury or currently using an Ambulatory Assistive Device (Walker, Cane, Wheelchair, Crutches, etc.)? Yes, Patient High Risk for Falls What interventions were put in place to prevent falls during this visit? Instructed Patient to Call for Help if Needed, Offered Assistance with Transfers/Clothing, Instructed Patient to Remain Seated (Not on Exam Table) Until Exam, and Increased Observations by Caregivers PATIENT GENDER DATA: Assigned female at . status: : No status: NO. PATIENT RELEVANT IMPLANT DATA REVIEWED: Not Applicable PATIENT PRESENTS WITH AN IMPLANTABLE OR ATTACHED MINESWEEPING OFFICER: No RADIOLOGY DEPARTMENT: General X-ray: Exam(s) Completed: Lower Extremity X-Ray(s): Foot, Right and Wt. Bearing PERIPHERAL IV DATA: Not applicable SIGNED BY: RT Erendira(Sandra) December 21, 2024 12:03 PM documented in this encounter [facility] 12-21-2024 Note HNO ID: [id number] Author: MEGHAN BROWN RT(R) Service: Radiology Author Type: Technologist Type: Progress Notes Filed: 12/21/2024 12:03 Note Text: Radiology Service Progress Note PATIENT NAME: Jesus Wolf DATE OF SERVICE: December 21, 2024 TIME: 12:03 PM PATIENT IDENTITY VERIFICATION COMPLETED USING TWO (2) IDENTIFIERS: Name and Date of confirmed by patient verbally. FALL SCREENING: Has the patient had 2 falls in the last year or 1 fall with injury or currently using an Ambulatory Assistive Device (Walker, Cane, Wheelchair, Crutches, etc.)? Yes, Patient High Risk for Falls What interventions were put in place to prevent falls during this visit? Instructed Patient to Call for Help if Needed, Offered Assistance with Transfers/Clothing, Instructed Patient to Remain Seated (Not on Exam Table) Until Exam, and Increased Observations by Caregivers PATIENT GENDER DATA: Assigned female at . status: : No status: NO. PATIENT RELEVANT IMPLANT DATA REVIEWED: Not Applicable PATIENT PRESENTS WITH AN IMPLANTABLE OR ATTACHED MINESWEEPING OFFICER: No RADIOLOGY DEPARTMENT: General X-ray: Exam(s) Completed: Lower Extremity X-Ray(s): Foot, Right and Wt. Bearing PERIPHERAL IV DATA: Not applicable SIGNED BY: Meghan Brown, RT(R) December 21, 2024 12:03 PM [facility] 12-20-2024 Miscellaneous Notes ----- Message from Wojciech Treviño DO sent at 12/19/2024 5:42 PM EDT ----- Her ankle x-ray did not show any acute process or fracture. The fluid did look like it was more in the soft tissue and not in the joint so the William wrap hopefully will help. Also the diuretic may help. I did review the most recent office visit from , her film editor supervisor, who cut back on her amiodarone but I do not see where he stopped her Aldactone which she said he did. It looks like she should still be taking her Aldactone. She should restart that or double check with his office if she really believes that he stopped it to make sure. ----- Message ----- From: Monica Theodore CMA Sent: 12/19/2024 4:26 PM EDT To: Wojciech Treviño DO Patient called back and she understands this documented in this encounter [facility] 12-20-2024 Telephone encounter Note ----- Message from Wojciech Treviño DO sent at 12/19/2024 5:42 PM EDT ----- Her ankle x-ray did not show any acute process or fracture. The fluid did look like it was more in the soft tissue and not in the joint so the William wrap hopefully will help. Also the diuretic may help. I did review the most recent office visit from , her film editor supervisor, who cut back on her amiodarone but I do not see where he stopped her Aldactone which she said he did. It looks like she should still be taking her Aldactone. She should restart that or double check with his office if she really believes that he stopped it to make sure. ----- Message ----- From: Monica Theodore CMA Sent: 12/19/2024 4:26 PM EDT To: Wojciech Treviño DO [facility] 12-20-2024 Telephone encounter Note Patient called back and she understands this [facility] 12-20-2024 Telephone encounter Note Summary: Xray Patient contacted updated the images are not in chart for Dr. Franco to review. Patient agreeable to have xrays completed prior to appointment. Patient grateful for call. Selin Birmingham LPN [facility] 12-20-2024 Miscellaneous Notes Summary: Xray Patient contacted updated the images are not in chart for Dr. Franco to review. Patient agreeable to have xrays completed prior to appointment. Patient grateful for call. Selin Birmingham LPN documented in this encounter [facility] 12-19-2024 History of Present illness Narrative Subjective Patient ID: Jesus Wolf is a 69 y.o. female. Jesus presents today for right ankle pain and swelling. Started about 3 weeks ago when she caught her foot on a step. She was trying to climb step and hit her foot on the step and she took a misstep. It is gradually worsened over the past 3 weeks, especially so in the last 1 and half weeks. It hurts to walk on it. She does have some swelling in her foot as well. She also has calluses on her feet and sees a screening tech. Her Aldactone was stopped by the film editor supervisor. The following portions of the patient's history were reviewed and updated as appropriate: allergies, current medications, past family history, past medical history, past social history, past surgical history, problem list, and medication reconciliation was completed including current medication and post discharge medication. Review of Systems Cardiovascular: Positive for leg swelling. Objective Physical Exam Vitals reviewed. Constitutional: General: She is not in acute distress. Appearance: She is not ill-appearing. Musculoskeletal: Right lower leg: Edema (+2/4) present. Left lower leg: Edema (+1/4) present. Right ankle: Swelling present. No deformity, ecchymosis or lacerations. Tenderness present. Normal range of motion. Right Achilles Tendon: Normal. Skin: General: Skin is warm and dry. Findings: No lesion or rash. Neurological: General: No focal deficit present. Mental Status: She is alert and oriented to person, place, and time. Gait: Gait abnormal (antalgic). Psychiatric: Attention and Perception: Attention normal. Mood and Affect: Mood and affect normal. Speech: Speech normal. Behavior: Behavior normal. Behavior is cooperative. Thought Content: Thought content normal. Judgment: Judgment normal. Assessment/Plan Jesus was seen today for foot swelling. Diagnoses and all orders for this visit: Acute right ankle pain - X-ray ankle right minimum 3 views; Future Check x-ray of the right ankle. Etiology is unclear but may have an ankle sprain. Also may have osteoarthritis of the ankle with joint effusion. William wrap applied. Elevate when possible. She may need to see a screening tech. Pedal edema She said the film editor supervisor stopped her Aldactone. I am going to have her double up on her furosemide to 2 daily for 3 days to try to get rid of some of this fluid. documented in this encounter [facility] 12-19-2024 Telephone encounter Note Pt is identified by name and birthdate: Yes Patient calls to make appt with Dr. Nayeli Jones for Right Foot Swelling - states she fell a few weeks ago and she is in pain/swelling. Denies Redness TOM: 03/05/21 Advised to be seen in [facility]. Patient agreeable [facility] 12-19-2024 Miscellaneous Notes Pt is identified by name and birthdate: Yes Patient calls to make appt with Dr. Nayeli Jones for Right Foot Swelling - states she fell a few weeks ago and she is in pain/swelling. Denies Redness TOM: 03/05/21 Advised to be seen in [facility]. Patient agreeable documented in this encounter [facility] 12-07-2024 History of Present illness Narrative Chief Complaint Patient presents with Follow-up 4 month, paroxysmal atrial fibrillation Subjective Jesus Wolf is a 69 y.o. female HPI Patient is in the office for follow-up for recurrent atrial fibrillation in spite of having 3 ablations in the past the last event was in 2023. She is currently on amiodarone 400 mg daily and her EKG today confirmed normal sinus rhythm and QTc interval of 429 ms. In mid October she had 7-day episode of atrial fibrillation with a heart rate of 110 bpm which was well-tolerated. It resolved by itself. She was taking additional metoprolol tartrate for that event on top of her permanent 200 daily of metoprolol succinate. She has been anticoagulated with Eliquis despite having the watchman's device implantation. She did have a history of DVT that required long-term anticoagulation. The patient has had no bleeding complications. Her weight is slightly coming down but remains morbidly obese. She is intolerant to CPAP machine. Her systemic lupus presently seems to be quiescent. Her blood pressure is under control, cardiac examination, pulm examinations are normal. Medications were reviewed in details and amiodarone testing will be maintained. ASSESSMENT AND PLAN: 1. Paroxysmal atrial fibrillation, status post radiofrequency ablation with pulmonary vein isolation at [facility] that was done 3 times started in 2019 and ended in 2023 with recurrences while on amiodarone therapy. Currently anticoagulated with Eliquis and she is also status post watchman's device March 2024. 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 Will leave the patient on amiodarone but the dose will be down to 300 mg daily for the time being and utilize metoprolol tartrate 25 mg for treatment of breakthrough events of atrial fibrillation. 2. Obstructive sleep apnea, unable to utilize CPAP machine. She utilizes oxygen at night. Weight reduction program was recommended to help in that regard 3. Systemic lupus, in remission, on medical therapy with hydroxychloroquine. Managed by the [facility] 4. Morbid obesity, patient is trying to lose weight with lifestyle modification and seems to be motivated. 5. Hyperlipidemia, on medical therapy, currently on 40 mg daily of atorvastatin. Lipid profile has been monitored closely and has been under control. 6. High-risk medication, on Eliquis no bleeding complications and amiodarone, amiodarone testing will be initiated 7. Essential hypertension, on medical therapy, currently under control 8. History of hypercalcemia caused by hyperparathyroidism status post parathyroidectomy last year at the [facility] with success 10. Ascending aortic aneurysm measured 4.6 cm from echocardiogram September 2021, follow-up echocardiogram in 2021 measured only 3.8 cm, patient is scheduled for follow-up echocardiogram Review of Systems All other systems reviewed and are negative. Vitals: 12/07/24 1056 BP: 124/80 BP Location: Left arm Patient Position: Sitting Pulse: 76 Weight: 116 kg (256 lb 9.6 oz) Height: 1.702 m (5' 7 ) EKG done in office today Objective Physical Exam Constitutional: Appearance: Normal appearance. HENT: Nose: Nose normal. Neck: Vascular: No carotid bruit. Cardiovascular: Rate and Rhythm: Normal rate. Pulses: Normal pulses. Heart sounds: Normal heart [...] content normal. Judgment: Judgment normal. Allergies Codeine; Dofetilide; Epinephrine; Sulfa (sulfonamide antibiotics); Prochlorperazine; Diphth,pertus(acell),tetanus; Iodinated contrast media; and Tetanus vaccines and toxoid Current Medications Current Outpatient Medications Medication Instructions acetaminophen (TYLENOL) 325 mg, Every 6 hours PRN alendronate (FOSAMAX) 70 mg, Every 7 days amiodarone (PACERONE) 300 mg, oral, Daily atorvastatin (LIPITOR) 40 mg, oral, Daily belimumab (Benlysta) 120 mg recon soln IV injection Every 8 weeks Bifidobacterium infantis (ALIGN ORAL) 1 tablet, Daily busPIRone (Buspar) 5 mg tablet Take 1 tablet (5 mg) by mouth 2 times a day. celecoxib (CELEBREX) 200 mg, 2 times daily cholecalciferol (Vitamin D-3) 50 mcg (2,000 unit) capsule 3 capsules, Daily colestipol (COLESTID) 3 g, 2 times daily Eliquis 5 mg, oral, 2 times daily ferrous sulfate 325 (65 Fe) MG tablet 65 mg of iron, Daily with breakfast furosemide (LASIX) 40 mg, Daily hydroxychloroquine (Plaquenil) 200 mg tablet 1 tablet, 2 times daily levothyroxine (SYNTHROID, LEVOXYL) 50 mcg, Daily before breakfast mesalamine (LIALDA) 2,400 mg, 2 times daily metoprolol succinate XL (TOPROL XL) 200 mg, oral, Daily, Do not crush or chew. metoprolol tartrate (Lopressor) 25 mg tablet As needed for break thru a-fib. Do not exceed one tablet multivitamin with minerals iron-free (Centrum Silver) 1 tablet, Daily pantoprazole (PROTONIX) 40 mg, 2 times daily spironolactone (ALDACTONE) 50 mg, Daily venlafaxine XR (EFFEXOR-XR) 150 mg, Daily Assessment/Plan 1. Paroxysmal atrial fibrillation (Multi) Follow Up In Cardiology ECG 12 Lead Aspartate Aminotransferase Basic Metabolic Panel Thyroid Stimulating Hormone XR chest 2 views Complete Pulmonary Function Test (Spirometry/DLCO/Lung Volumes) Aspartate Aminotransferase Basic Metabolic Panel Thyroid Stimulating Hormone 2. Presence of Watchman left atrial appendage closure device 3. Deep vein thrombosis (DVT) of upper extremity, unspecified chronicity, unspecified laterality, unspecified vein 4. halfway current use of anticoagulant therapy 5. Chronic diastolic heart failure Follow Up In Cardiology 6. Aneurysm of ascending aorta without rupture 7. Essential hypertension 8. Mixed hyperlipidemia 9. Obstructive sleep apnea 10. Never smoked any substance 11. BMI 40.0-44.9, adult (Multi) 12. High risk medication use Aspartate Aminotransferase Basic Metabolic Panel Thyroid Stimulating Hormone XR chest 2 views Complete Pulmonary Function Test (Spirometry/DLCO/Lung Volumes) Aspartate Aminotransferase Basic Metabolic Panel Thyroid Stimulating Hormone 13. Hyperlipidemia, unspecified hyperlipidemia type atorvastatin (Lipitor) 40 mg tablet 14. Atypical atrial flutter amiodarone (Pacerone) 200 mg tablet 15. Morbid obesity (Multi) 16. Other forms of systemic lupus erythematosus, unspecified organ involvement status (Multi) Scribe Attestation By signing my name below, I, Paco Yu LPN attest that this documentation has been prepared [...] discussion and plan. documented in this encounter [facility] Work Phone: 12-07-2024 Instructions Jesus Alatorre LPN - 12/07/2024 10:40 AM EDT Please bring all medicines, vitamins, and herbal supplements with you when you come to the office. Prescriptions will not be filled unless you are compliant with your follow up appointments or have a follow up appointment scheduled as per instruction of your physician. Refills should be requested at the time of your visit. Amiodarone follow up per routine BMI was above normal measurement. Current weight: 116 kg (256 lb 9.6 oz) Weight change since last visit (-) denotes wt loss -5.4 lbs Weight loss needed to achieve BMI 25: 97.3 Lbs Weight loss needed to achieve BMI 30: 65.5 Lbs Provided instructions on dietary changes. The following attachments cannot be sent through Care Everywhere.Heart Healthy Diet (Malaysian)documented in this encounter [facility] Work Phone: 12-01-2024 Note Addended by: NADEGE KUHN on: 12/01/2024 03:17 PM Modules accepted: Orders [facility] 12-01-2024 Miscellaneous Notes Addended by: NADEGE MURPHY on: 12/01/2024 03:17 PM Modules accepted: Orders documented in this encounter [facility] 12-01-2024 Note HNO ID: [id number] Author: ADELAIDE CASILLAS RN Service: ? Author Type: Registered Nurse Type: Progress Notes Filed: 12/09/2024 15:34 Note Text: Since your last infusion, have [...] No New rash or open sores? No Belimumab infusion completed at 1125 with no issues. [facility] 12-01-2024 History of Present illness Narrative Since your [...] open sores? No documented in this encounter [facility] 12-01-2024 Telephone encounter Note Images from the original note were not included. Most recent Rheumatology visit: 11/16/2024 (with Nadege Murphy) Last Bone Density on file: 03/15/2024 Rheumatology Care Team: None on file Recent Office Visits - This Specialty 11/16/2024 Systemic lupus erythematosus, unspecified SLE type, unspecified organ involvement status (HCC) Rheumatology Nadege Murphy DO 05/18/2024 Systemic lupus erythematosus, unspecified SLE type, unspecified organ involvement status (HCC) Rheumatology Nadege Murphy DO 03/15/2024 Osteopenia of multiple sites [facility] Julia Ann PA-C Upcoming Rheumatology Appointments - Next 365 Days Visit Type Date Time Department [facility] 05/24/2025 9:00 AM [facility] A50 Last Ophthalmology Check for Plaquenil (Hydroxychloroquine) Last OCT Macula Exam No resulted procedures found. Last Visual Field Exam No resulted procedures found. CBC: Latest Ref Rng & Units 05/20/2024 11/16/2024 CBC WBC 3.70 - 11.00 k/uL 8.85 7.24 Hemoglobin 11.5 - 15.5 g/dL 13.8 15.0 Hematocrit 36.0 - 46.0 % 41.2 46.3 Platelet Count 150 - 400 k/uL 271 272 Abs Neut (ANC) 1.45 - 7.50 k/uL 7.67 4.65 Abs Lymph 1.00 - 4.00 k/uL 0.68 1.46 Vitamin D: None on file in the last 6 months LFT: Latest Ref Rng & Units 08/11/2024 11/16/2024 CMP Sodium 136 - 144 mmol/L 141 142 Potassium 3.7 - 5.1 mmol/L 4.7 4.5 Chloride 98 - 107 mmol/L 106 104 CO2 22 - 30 mmol/L 24 27 Glucose 74 - 99 mg/dL 82 86 BUN 7 - 21 mg/dL 24 15 Creatinine 0.58 - 0.96 mg/dL 1.03 1.04 Calcium 8.5 - 10.2 mg/dL 9.1 9.6 AST 13 - 35 U/L 41 ALT 7 - 38 U/L 45 Alkaline Phosphatase 34 - 123 U/L 115 Hepatic Function: Creatinine: Latest Ref Rng & Units 08/11/2024 11/16/2024 Creatinine Creatinine 0.58 - 0.96 mg/dL 1.03 1.04 ESR/CRP: None on file in the last 6 months Uric Acid: None on file in the last 6 months Open Standing (Multiple Instance) Lab Orders None Open Future (Single Instance) Lab Orders None [facility] 12-01-2024 Miscellaneous Notes Images from the original note were not included. Most recent Rheumatology visit: 11/16/2024 (with Nadege Murphy) Last Bone Density on file: 03/15/2024 Rheumatology Care Team: None on file Recent Office Visits - This Specialty 11/16/2024 Systemic lupus erythematosus, unspecified SLE type, unspecified organ involvement status (HCC) Rheumatology Nadege Murphy DO 05/18/2024 Systemic lupus erythematosus, unspecified SLE type, unspecified organ involvement status (HCC) Rheumatology Nadege Murphy DO 03/15/2024 Osteopenia of multiple sites [facility] Julia Ann PA-C Upcoming Rheumatology Appointments - Next 365 Days Visit Type Date Time Department [facility] 05/24/2025 9:00 AM [facility] A50 Last Ophthalmology Check for Plaquenil (Hydroxychloroquine) Last OCT Macula Exam No resulted procedures found. Last Visual Field Exam No resulted procedures found. CBC: Latest Ref Rng & Units 05/20/2024 11/16/2024 CBC WBC 3.70 - 11.00 k/uL 8.85 7.24 Hemoglobin 11.5 - 15.5 g/dL 13.8 15.0 Hematocrit 36.0 - 46.0 % 41.2 46.3 Platelet Count 150 - 400 k/uL 271 272 Abs Neut (ANC) 1.45 - 7.50 k/uL 7.67 4.65 Abs Lymph 1.00 - 4.00 k/uL 0.68 1.46 Vitamin D: None on file in the last 6 months LFT: Latest Ref Rng & Units 08/11/2024 11/16/2024 CMP Sodium 136 - 144 mmol/L 141 142 Potassium 3.7 - 5.1 mmol/L 4.7 4.5 Chloride 98 - 107 mmol/L 106 104 CO2 22 - 30 mmol/L 24 27 Glucose 74 - 99 mg/dL 82 86 BUN 7 - 21 mg/dL 24 15 Creatinine 0.58 - 0.96 mg/dL 1.03 1.04 Calcium 8.5 - 10.2 mg/dL 9.1 9.6 AST 13 - 35 U/L 41 ALT 7 - 38 U/L 45 Alkaline Phosphatase 34 - 123 U/L 115 Hepatic Function: Creatinine: Latest Ref Rng & Units 08/11/2024 11/16/2024 Creatinine Creatinine 0.58 - 0.96 mg/dL 1.03 1.04 ESR/CRP: None on file in the last 6 months Uric Acid: None on file in the last 6 months Open Standing (Multiple Instance) Lab Orders None Open Future (Single Instance) Lab Orders None documented in this encounter [facility] 11-30-2024 Telephone encounter Note Images from the original note were not included. Most recent Rheumatology visit: 11/16/2024 (with Nadege Murphy) Last Bone Density on file: 03/15/2024 Rheumatology Care Team: None on file Recent Office Visits - This Specialty 11/16/2024 Systemic lupus erythematosus, unspecified SLE type, unspecified organ involvement status (HCC) Rheumatology Nadege Murphy, 05/18/2024 Systemic lupus erythematosus, unspecified SLE type, unspecified organ involvement status (HCC) Rheumatology Nadege Murphy, 03/15/2024 Osteopenia of multiple sites [facility] Center Julia Ann PA-C Upcoming Rheumatology Appointments - Next 365 Days Visit Type Date Time Department [facility] 05/24/2025 9:00 AM [facility] A50 Last Ophthalmology Check for Plaquenil (Hydroxychloroquine) Scan on 11/23/2024 9:53 AM by Provider, ISELA Domínguez: Consultation - Ophthalmology CBC: Latest Ref Rng & Units 05/20/2024 11/16/2024 CBC WBC 3.70 - 11.00 k/uL 8.85 7.24 Hemoglobin 11.5 - 15.5 g/dL 13.8 15.0 Hematocrit 36.0 - 46.0 % 41.2 46.3 Platelet Count 150 - 400 k/uL 271 272 Abs Neut (ANC) 1.45 - 7.50 k/uL 7.67 4.65 Abs Lymph 1.00 - 4.00 k/uL 0.68 1.46 Vitamin D: None on file in the last 6 months LFT: Latest Ref Rng & Units 08/11/2024 11/16/2024 CMP Sodium 136 - 144 mmol/L 141 142 Potassium 3.7 - 5.1 mmol/L 4.7 4.5 Chloride 98 - 107 mmol/L 106 104 CO2 22 - 30 mmol/L 24 27 Glucose 74 - 99 mg/dL 82 86 BUN 7 - 21 mg/dL 24 15 Creatinine 0.58 - 0.96 mg/dL 1.03 1.04 Calcium 8.5 - 10.2 mg/dL 9.1 9.6 AST 13 - 35 U/L 41 ALT 7 - 38 U/L 45 Alkaline Phosphatase 34 - 123 U/L 115 Hepatic Function: Creatinine: Latest Ref Rng & Units 08/11/2024 11/16/2024 Creatinine Creatinine 0.58 - 0.96 mg/dL 1.03 1.04 ESR/CRP: None on file in the last 6 months Uric Acid: None on file in the last 6 months Open Standing (Multiple Instance) Lab Orders None Open Future (Single Instance) Lab Orders None [facility] 11-30-2024 Miscellaneous Notes Images from the original note were not included. Most recent Rheumatology visit: 11/16/2024 (with Nadege Murphy) Last Bone Density on file: 03/15/2024 Rheumatology Care Team: None on file Recent Office Visits - This Specialty 11/16/2024 Systemic lupus erythematosus, unspecified SLE type, unspecified organ involvement status (HCC) Rheumatology Nadege Murphy, 05/18/2024 Systemic lupus erythematosus, unspecified SLE type, unspecified organ involvement status (HCC) Rheumatology Nadege Murphy DO 03/15/2024 Osteopenia of multiple sites Bone Center Julia Ann PA-C Upcoming Rheumatology Appointments - Next 365 Days Visit Type Date Time Department [facility] 05/24/2025 9:00 AM [facility] A50 Last Ophthalmology Check for Plaquenil (Hydroxychloroquine) Scan on 11/23/2024 9:53 AM by Provider, ISELA Domínguez: Consultation - Ophthalmology CBC: Latest Ref Rng & Units 05/20/2024 11/16/2024 CBC WBC 3.70 - 11.00 k/uL 8.85 7.24 Hemoglobin 11.5 - 15.5 g/dL 13.8 15.0 Hematocrit 36.0 - 46.0 % 41.2 46.3 Platelet Count 150 - 400 k/uL 271 272 Abs Neut (ANC) 1.45 - 7.50 k/uL 7.67 4.65 Abs Lymph 1.00 - 4.00 k/uL 0.68 1.46 Vitamin D: None on file in the last 6 months LFT: Latest Ref Rng & Units 08/11/2024 11/16/2024 CMP Sodium 136 - 144 mmol/L 141 142 Potassium 3.7 - 5.1 mmol/L 4.7 4.5 Chloride 98 - 107 mmol/L 106 104 CO2 22 - 30 mmol/L 24 27 Glucose 74 - 99 mg/dL 82 86 BUN 7 - 21 mg/dL 24 15 Creatinine 0.58 - 0.96 mg/dL 1.03 1.04 Calcium 8.5 - 10.2 mg/dL 9.1 9.6 AST 13 - 35 U/L 41 ALT 7 - 38 U/L 45 Alkaline Phosphatase 34 - 123 U/L 115 Hepatic Function: Creatinine: Latest Ref Rng & Units 08/11/2024 11/16/2024 Creatinine Creatinine 0.58 - 0.96 mg/dL 1.03 1.04 ESR/CRP: None on file in the last 6 months Uric Acid: None on file in the last 6 months Open Standing (Multiple Instance) Lab Orders None Open Future (Single Instance) Lab Orders None documented in this encounter [facility] 11-30-2024 Telephone encounter Note Pharmacy escripts requesting the following refill: Requested Prescriptions Pending Prescriptions Disp Refills Mesalamine (LIALDA) 1.2 gram EC tablet 360 tablet 3 Sig: Take 4 tablets by mouth once daily. Please review and advise. Bang Spears RN [facility] 11-30-2024 Telephone encounter Note Pharmacy escripts requesting the following refill: Requested Prescriptions Pending Prescriptions Disp Refills ferrous sulfate (IRON) 325 mg (65 mg iron) tablet 90 tablet 3 Sig: Take 1 tablet by mouth once daily. Please review and advise. Bang Spears RN [facility] 11-30-2024 Miscellaneous Notes Pharmacy escripts requesting the following refill: Requested Prescriptions Pending Prescriptions Disp Refills ferrous sulfate (IRON) 325 mg (65 mg iron) tablet 90 tablet 3 Sig: Take 1 tablet by mouth once daily. Please review and advise. Bang Spears RN documented in this encounter [facility] 11-30-2024 Miscellaneous Notes Pharmacy escripts requesting the following refill: Requested Prescriptions Pending Prescriptions Disp Refills Mesalamine (LIALDA) 1.2 gram EC tablet 360 tablet 3 Sig: Take 4 tablets by mouth once daily. Please review and advise. Bang Spears RN documented in this encounter [facility] 11-28-2024 History of Present illness Narrative Associated Order(s): $ Arthrocentesis Post-Procedure Diagnose(s): Localized osteoarthritis of left knee $ Arthrocentesis Date/Time: 11/28/2024 2:38 PM Performed by: Wojciech Treviño DO Authorized by: Wojciech Treviño DO Fire Risk Assessment Score Procedure site above the Xiphoid 0 Open O2 source (mask/cannula) 0 Ignition source (Cautery, Fiberoptic Light, Laser) 0 Total Fire Risk Assessment Score 0 Verbal consent obtained?: Yes Written consent obtained?: Yes Risks and benefits: Risks, benefits and alternatives were discussed Consent given by: Patient Patient states understanding of procedures being performed: Yes Patient's understanding of procedure matches consent: No Procedure consent matches procedure scheduled: No Relevant documents present and verified: Yes Test results available and properly labeled: Yes Site marked: Yes Imaging studies available: Yes Required items: Required blood products, implants, devices and special equipment available Patient identity confirmed: Verbally with patient Time out: Immediately prior to the procedure a time out was called Indications: Pain and osteoarthritis Body area: Knee Joint: Left knee Preparation: Patient was prepped and draped in usual sterile fashion Needle size: 25 G Ultrasound guidance: No Approach: Anterior Aspirate amount (ml): 0 Lidocaine HCL 1% amount (ml): 4 Kenalog amount (mg/ml): 40 Patient tolerance: Patient tolerated the procedure well with no immediate complications Procedure was completed Vital signs stable during the procedure Complications: none Interventions: none Post Anesthesia Evaluation (excludes pre-procedural restrictions and appropriate to age) post-procedure vital signs reviewed and stable Subjective Patient ID: Jesus Wolf is a 69 y.o. female. Jesus presents to the office today for left knee pain. This has been ongoing for quite some time. It is getting worse. She saw the orthopedist it the [facility] who said she had bone on bone although the x-ray report said mild arthritis. She did get a cortisone injection from the orthopedist in May and it lasted over 3 months. She would like another 1. She does take blood thinners but has not had any bleeding issues. She can not take NSAIDs due to her anticoagulation. The following portions of the patient's history were reviewed and updated as appropriate: allergies, current medications, past family history, past medical history, past social history, past surgical history, problem list, and medication reconciliation was completed including current medication and post discharge medication. Review of Systems Objective Physical Exam Vitals reviewed. Exam conducted with a materials mgmt tech present (Burak Peterson MS 3). Constitutional: General: She is not in acute distress. Appearance: She is morbidly obese. She is not ill-appearing. Musculoskeletal: Left knee: Bony tenderness and crepitus present. No swelling, deformity, effusion, erythema, ecchymosis or lacerations. Tenderness present. Comments: Diffuse tenderness anteriorly Skin: Findings: No bruising. Neurological: General: No focal deficit present. Mental Status: She is oriented to person, place, and time. Gait: Gait abnormal (antalgic with slight limp which improved after cortisone injection). Psychiatric: Mood and Affect: Mood normal. Behavior: Behavior normal. Thought Content: Thought content normal. Judgment: Judgment normal. Assessment/Plan Jesus was seen today for knee injections. Diagnoses and all orders for this visit: Localized osteoarthritis of left knee - triamcinolone acetonide (KENALOG-40) injection 40 mg - $ Arthrocentesis Jesus presents today for a cortisone injection in the left knee. She had 1 done previously 6 months ago and it worked for over 3 months. She would like another 1. Did improve her quality of life. She is aware risks such as hemarthrosis and septic joint. She would like to proceed. X-ray report from [facility] was reviewed with the patient as well as the orthopedic visit. She was given an injection today without complications. She noted a near immediate improvement in pain. documented in this encounter [facility] 11-24-2024 Telephone encounter Note Scan on 11/23/2024 9:53 AM by ProviderSang PA-C: Consultation - Ophthalmology Jessenia Lopes RN [facility] 11-24-2024 Miscellaneous Notes Scan on 11/23/2024 9:53 AM by ProviderSang PA-C: Consultation - Ophthalmology Jessenia Lopes RN Received eye report from [facility] on 11/23/24. Scanned for review. documented in this encounter [facility] 11-23-2024 Telephone encounter Note Received eye report from [facility] on 11/23/24. Scanned for review. [facility] 11-16-2024 History of Present illness Narrative Images from the original note were not included. [facility] DEPARTMENT OF RHEUMATIC AND IMMUNOLOGIC DISEASES SUBJECTIVE: Reason for visit: SLE Brief History of Present Illness: Jesus Wolf is a 69 year old female with HTN, HLD, HFpEF, MONI not on CPAP, pAF s/p PVI 2x, hypothyroidism, primary hyperparathyroidism, ulcerative colitis, gallstone pancreatitis, IPMN, and osteopenia who is evaluated in the Rheumatology Clinic for [...] every 3 months. Also on Plaquenil and Cellcept 1g BID. August 2018 Cellcept was decreased to 1500 mg daily because of recurrent URI March 2020 admitted with CHF A. fib on Eliquis DX 1998 ulcerative colitis on mesalamine therapy Has pancreatitis and IPMN. Takes prednisone before Benlysta because of burning eye symptoms with Benlysta , no anaphylaxis Had GI evaluation and general surgery and thought the pancreatitis thought to be to gall bladder stone Had a hip replacement right hip in December 2020 Tapering Cellcept on 1 gram daily Does not use [...] Had morning stiffness which lasts 15-20 minutes. 01/2023 mycophenolate mofetil was stopped. 12/2023 she was able to tell when due for BEL every 3 months, has increased fatigue prior to her infusions with increased joint pain and worsening fatigue. She notably gets 60 mg IVMP with her infusions due to eye swelling that happened when she was first infused. At that time BEL was increased to every 2 month infusions. Today she feels well on this regimen. An tell when she is due for her infusions based on increased aches of hands and fatigue. Considering left knee replacement based on severe osteoarthritis on XR. She is still struggling with atrial fib, had a watchman procedure and takes amiodarone for rhythm control. Current Medications: HCQ 400 mg once daily Belimumab infusions every 2 months with 40 mg IVMP Answers submitted by the patient for this visit: Review of Systems Rheumatology (Submitted on 11/12/2024) Fever : No Eye pain: No Eye redness: No Vision Disturbance: No Eye Dryness: Yes Nosebleeds: No Sores in your mouth: No Trouble Swallowing: No Dry Mouth: No Chest pain: No Leg Swelling: No A cough: No Shortness of breath: Yes Pain with breathing: No Heartburn: No Abdominal pain: No Diarrhea: No Black tarry stools: No Blood in urine: No Pain or burning with urination: No Joint pain or stiffness: Yes Muscle weakness: Yes Muscle aches: Yes Joint swelling: Yes Morning Stiffness in Joints: Yes A rash: No Skin Color Changes: Yes Hair Loss: No Nail Changes: Yes Headaches: Yes Numbness: No Memory Loss: No Swollen Glands: No PMHx: PAST MEDICAL HISTORY Diagnosis Date Arrhythmia Atrial fibrillation (HCC) on coumadin Herniated intervertebral disk HTN (hypertension) Hyperlipemia Kidney disease MONI (obstructive sleep apnea) no longer using CPAP since 60 lb weight loss Other acute pancreatitis with uninfected necrosis (HCC) SLE (systemic lupus erythematosus) (HCC) Sleep apnea 07/29/2012 PSHx: PAST SURGICAL HISTORY Procedure Laterality Date APPENDECTOMY CARPAL TUNNEL RIGHT WRIST surgical correction COLONOSCOPY 05/10/2019 [facility] COLONOSCOPY GEN ANES 07/23/2020 Dr. Frances/Diverticulosis/Hemorrhoids/ Ulcerative Colitis/Rpt in 2 yrs. COLONOSCOPY SCREENING 03/2023 EGD EUS 01/11/2020 [facility] LASIK Right prior to 1999 MRI PANC/JEANIE WO/W IVCON 12/20/2019 [facility]STECT[facility] PAST SURGICAL HISTORY OF 07/2013 bilateral foot procedure, Sherry PAST SURGICAL HISTORY OF Ablation X2 TONSILLECTOMY HX MEDICATIONS: colestipol (COLESTID) 1 gram tablet TAKE 3 TABLETS BY MOUTH TWICE DAILY pantoprazole DR (PROTONIX) 40 mg tablet Take 1 tablet by mouth twice daily Mesalamine (LIALDA) 1.2 gram EC tablet TAKE 4 TABLETS BY MOUTH ONCE DAILY hydrOXYchloroQUINE (PLAQUENIL) 200 mg tablet take 1 tablet by mouth twice a day with food ferrous sulfate (IRON) 325 mg (65 mg iron) tablet Take 1 tablet by mouth once daily. amiodarone (PACERONE) 200 mg tablet Take 1 tablet by mouth every 12 hours. metoprolol succinate ER (TOPROL XL) 50 mg 24 hr tablet TAKE 1 TABLET BY MOUTH IN THE MORNING AND 2 TABLETS BY MOUTH IN THE EVENING ELIQUIS 5 mg tab(s) Take 5 mg by mouth twice daily. acetaminophen (TYLENOL) 500 mg tablet Take 1 tablet by mouth every 4 hours as needed for pain. vvtcprq-awpzmarjp-bjfleie D3 500 mg-5 mcg (200 unit) per tablet Take 1 tablet by mouth three times daily. MV with Tbf-Oqcsjfby-Lxqlsq (CENTRUM SILVER) 0.4 mg-300 mcg- 250 mcg [...] mg tablet Take 10 mg by mouth two times a day. Cholecalciferol, Vitamin D3, 2,000 unit cap Take by mouth once daily. vitamin b complex(B COMPLEX TAB) one daily multivitamins w-minerals/lut(CENTRUM SILVER TAB) Take one(1) tablet daily. alendronate (FOSAMAX) 70 mg tablet Take 1 tablet by mouth one time a week. In the morning with a full glass of water, on an empty stomach. Do not take anything else by mouth or lie down for the next 30 minutes. ALLERGIES: ALLERGIES Allergen Reactions Dofetilide Other: See [...] of shot OBJECTIVE: Physical Examination: Vitals: BP 136/64 Pulse 80 Temp 36.3 C (97.4 F) (Temporal) Ht 166.4 cm (5' 5.5 ) Wt 118.4 kg (261 lb 0.4 oz) LMP 07/17/2011 (Within Years) BMI 42.78 kg/m General: Looks well, NAD, A & Ox3. HEENT: + rash on face and cheeks. Neck: No LAD. CVS: RRR, nl S1/S2, no R/M/G, Resp: CTAB. Ext: No edema. Neuro: Gait Normal. Musculoskeletal: Elbows: No swelling, no tenderness, no flexion contractures, no nodules, good ROM Wrists: No swelling, no tenderness, no limitation in flexion and extension Hands: There is swelling of MCPs with +TTP diffusely. +Heberden's nodes. Knees: No effusion, no tenderness, good ROM Ankles: No swelling, no tenderness, good ROM IMPRESSIONS/RECOMMENDATIONS: Systemic Lupus Erythematosus Diagnosis based on 2019 ACR/EULAR classification criteria: PRAVEZ, +dsDNA antibodies with membranous lupus nephritis. Clinical symptoms of photosensitivity with malar rash and arthralgia. She is in renal remission and no longer warrants MMF as of 01/2023. We will continue HCQ 5 mg/kg/day dosing and belimumab 10 mg/kg iv infusions every 2 months with 40 mg IVMP. We have discussed the risks and toxicities associated with the use of these medications and the appropriate lab monitoring. We will obtain labs today with CK level, urine studies as ordered by nephrology. 2. 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 I have prescribed for her a course of Voltaren Gel 1% for her to use four times/daily. Health Maintenance: Vaccinations: Prevnar 20 given 01/2023. She is otherwise up to date with all vaccines. Advised COVID booster this fall. Bone Health: Seeing metabolic Bone. HCQ monitorin10/2023 scanned into system. RTC 6 months. Nadege Murphy D.O. Rheumatology Staff documented in this encounter [facility] 11-16-2024 Note HNO ID: [id number] Author: NADEGE MURPHY DO Service: ? Author Type: Physician Type: Progress Notes Filed: 11/16/2024 10:02 Note Text: [facility] DEPARTMENT OF RHEUMATIC AND IMMUNOLOGIC DISEASES SUBJECTIVE: Reason for visit: SLE Brief History of Present Illness: Jesus Wolf is a 69 year old female with HTN, HLD, HFpEF, MONI not on CPAP, pAF s/p PVI 2x, hypothyroidism, primary hyperparathyroidism, ulcerative colitis, gallstone pancreatitis, IPMN, and osteopenia who is evaluated in the Rheumatology Clinic for [...] every 3 months. Also on Plaquenil and Cellcept 1g BID. August 2018 Cellcept was decreased to 1500 mg daily because of recurrent URI March 2020 admitted with CHF A. fib on Eliquis DX 1998 ulcerative colitis on mesalamine therapy Has pancreatitis and IPMN. Takes prednisone before Benlysta because of burning eye symptoms with Benlysta , no anaphylaxis Had GI evaluation and general surgery and thought the pancreatitis thought to be to gall bladder stone Had a hip replacement right hip in December 2020 Tapering Cellcept on 1 gram daily Does not use [...] Had morning stiffness which lasts 15-20 minutes. 01/2023 mycophenolate mofetil was stopped. 12/2023 she was able to tell when due for BEL every 3 months, has increased fatigue prior to her infusions with increased joint pain and worsening fatigue. She notably gets 60 mg IVMP with her infusions due to eye swelling that happened when she was first infused. At that time BEL was increased to every 2 month infusions. Today she feels well on this regimen. An tell when she is due for her infusions based on increased aches of hands and fatigue. Considering left knee replacement based on severe osteoarthritis on XR. She is still struggling with atrial fib, had a watchman procedure and takes amiodarone for rhythm control. Current Medications: HCQ 400 mg once daily Belimumab infusions every 2 months with 40 mg IVMP Answers submitted by the patient for this visit: Review of Systems Rheumatology (Submitted on 11/12/2024) Fever : No Eye pain: No Eye redness: No Vision Disturbance: No Eye Dryness: Yes Nosebleeds: No Sores in your mouth: No Trouble Swallowing: No Dry Mouth: No Chest pain: No Leg Swelling: No A cough: No Shortness of breath: Yes Pain with breathing: No Heartburn: No Abdominal pain: No Diarrhea: No Black tarry stools: No Blood in urine: No Pain or burning with urination: No Joint pain or stiffness: Yes Muscle weakness: Yes Muscle aches: Yes Joint swelling: Yes Morning Stiffness in Joints: Yes A rash: No Skin Color Changes: Yes Hair Loss: No Nail Changes: Yes Headaches: Yes Numbness: No Memory Loss: No Swollen Glands: No PMHx: PAST MEDICAL HISTORY Diagnosis Date Arrhythmia Atrial fibrillation (HCC) on coumadin Herniated intervertebral disk HTN (hypertension) Hyperlipemia Kidney disease MONI (obstructive sleep apnea) no longer using CPAP since 60 lb weight loss Other acute pancreatitis with uninfected necrosis (HCC) SLE (systemic lupus erythematosus) (HCC) Sleep apnea 07/29/2012 PSHx: PAST SURGICAL HISTORY Procedure Laterality Date APPENDECTOMY CARPAL TUNNEL RIGHT WRIST surgical correction (more content not included)... [facility] 11-15-2024 Telephone encounter Note Pharmacy requesting Refill: [facility] 09/30/24 Next appointment 06/16/25 Please review and sign if you agree. Thank You Miroslava Braga LPN Requested Prescriptions Pending Prescriptions Disp Refills colestipol (COLESTID) 1 gram tablet [Pharmacy Med Name: Colestipol HCl 1 GM Oral Tablet] 360 tablet 3 Sig: TAKE 3 TABLETS BY MOUTH TWICE DAILY [facility] 11-15-2024 Miscellaneous Notes Pharmacy requesting Refill: [facility] 09/30/24 Next appointment 06/16/25 Please review and sign if you agree. Thank You Miroslava Braga LPN Requested Prescriptions Pending Prescriptions Disp Refills colestipol (COLESTID) 1 gram tablet [Pharmacy Med Name: Colestipol HCl 1 GM Oral Tablet] 360 tablet 3 Sig: TAKE 3 TABLETS BY MOUTH TWICE DAILY documented in this encounter [facility] 11-15-2024 Note HNO ID: [id number] Author: RADU SALAZAR MD Service: ? 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 PAST MEDICAL HISTORY: PAST MEDICAL HISTORY Diagnosis Date Arrhythmia Atrial fibrillation (HCC) on coumadin Herniated intervertebral disk HTN (hypertension) Hyperlipemia Kidney disease MONI (obstructive sleep apnea) no longer using CPAP since 60 lb weight loss Other acute pancreatitis with uninfected necrosis (HCC) SLE (systemic lupus erythematosus) (HCC) Sleep apnea 07/29/2012 MEDICATIONS: As reviewed with patient, and recalled by patient pantoprazole (PROTONIX) 40 mg tablet Take 1 tablet by mouth twice daily Mesalamine (LIALDA) 1.2 gram EC tablet TAKE 4 TABLETS BY MOUTH ONCE DAILY alendronate (FOSAMAX) 70 mg tablet Take 1 tablet by mouth one time a week. In the morning with a full glass of water, on an empty stomach. Do not take anything else by mouth or lie down for the next 30 minutes. hydrOXYchloroQUINE (PLAQUENIL) 200 mg tablet take 1 tablet by mouth twice a day with food colestipol (COLESTID) 1 gram tablet Take 3 tablets by mouth two times a day. ferrous sulfate (IRON) 325 mg (65 mg iron) tablet Take 1 tablet by mouth once daily. amiodarone (PACERONE) 200 mg tablet Take 1 tablet by mouth every 12 hours. metoprolol succinate ER (TOPROL XL) 50 mg 24 hr tablet TAKE 1 TABLET BY MOUTH IN THE MORNING AND 2 TABLETS BY MOUTH IN THE EVENING ELIQUIS 5 mg tab(s) Take 5 mg by mouth twice daily. acetaminophen (TYLENOL) 500 mg tablet Take 1 tablet by mouth every 4 hours as needed for pain. riefhlx-cuevuhrsc-ytbwpcg D3 500 mg-5 mcg (200 unit) per tablet Take 1 tablet by mouth three times daily. MV with Vmj-Cpgkbwtn-[place] (CENTRUM SILVER) 0.4 mg-300 mcg- 250 mcg [...] mg tablet Take 10 mg by mouth two times a day. Cholecalciferol, Vitamin D3, 2,000 unit cap Take by mouth once daily. vitamin b complex(B COMPLEX TAB) one daily multivitamins w-minerals/lut(CENTRUM SILVER TAB) Take one(1) tablet daily. ALLERGIES: ALLERGIES Allergen Reactions Dofetilide Other: See [...] Comments red spot in area of shot REVIEW OF SYSTEMS: General/ Constitutional: No complaints, No fever, No chills, No weight loss, No fatigue, No night sweats, No malaise and No weakness Cardiovascular: No complaints, No chest pain or pressure, No orthopnea, No dyspnea on exertion, No edema, No palpitations, No dizziness, No lightheadedness and No syncope Genitourinary: No complaints, No nocturia, No hesitancy, No frothy urine, No freq (more content not included)... 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 PAST MEDICAL HISTORY: PAST MEDICAL HISTORY Diagnosis Date Arrhythmia Atrial fibrillation (HCC) on coumadin Herniated intervertebral disk HTN (hypertension) Hyperlipemia Kidney disease MONI (obstructive sleep apnea) no longer using CPAP since 60 lb weight loss Other acute pancreatitis with uninfected necrosis (HCC) SLE (systemic lupus erythematosus) (HCC) Sleep apnea 07/29/2012 MEDICATIONS: As reviewed with patient, and recalled by patient pantoprazole (PROTONIX) 40 mg tablet Take 1 tablet by mouth twice daily Mesalamine (LIALDA) 1.2 gram EC tablet TAKE 4 TABLETS BY MOUTH ONCE DAILY alendronate (FOSAMAX) 70 mg tablet Take 1 tablet by mouth one time a week. In the morning with a full glass of water, on an empty stomach. Do not take anything else by mouth or lie down for the next 30 minutes. hydrOXYchloroQUINE (PLAQUENIL) 200 mg tablet take 1 tablet by mouth twice a day with food colestipol (COLESTID) 1 gram tablet Take 3 tablets by mouth two times a day. ferrous sulfate (IRON) 325 mg (65 mg iron) tablet Take 1 tablet by mouth once daily. amiodarone (PACERONE) 200 mg tablet Take 1 tablet by mouth every 12 hours. metoprolol succinate ER (TOPROL XL) 50 mg 24 hr tablet TAKE 1 TABLET BY MOUTH IN THE MORNING AND 2 TABLETS BY MOUTH IN THE EVENING ELIQUIS 5 mg tab(s) Take 5 mg by mouth twice daily. acetaminophen (TYLENOL) 500 mg tablet Take 1 tablet by mouth every 4 hours as needed for pain. bbfhkyr-xxsuevzmy-taqxryv D3 500 mg-5 mcg (200 unit) per tablet Take 1 tablet by mouth three times daily. MV with Ulr-Jvqsfhts-Kabzfo (CENTRUM SILVER) 0.4 mg-300 mcg- 250 mcg [...] mg tablet Take 10 mg by mouth two times a day. Cholecalciferol, Vitamin D3, 2,000 unit cap Take by mouth once daily. vitamin b complex(B COMPLEX TAB) one daily multivitamins w-minerals/lut(CENTRUM SILVER TAB) Take one(1) tablet daily. ALLERGIES: ALLERGIES Allergen Reactions Dofetilide Other: See [...] Comments red spot in area of shot REVIEW OF SYSTEMS: General/ Constitutional: No complaints, No fever, No chills, No weight loss, No fatigue, No night sweats, No malaise and No weakness Cardiovascular: No complaints, No chest pain or pressure, No orthopnea, No dyspnea on exertion, No edema, No palpitations, No dizziness, No lightheadedness and No syncope Genitourinary: No complaints, No nocturia, No hesitancy, No frothy urine, No frequency, No pink or red urine, No flank pain, No dysuria, No oliguria, No polyuria, No incontinence and No straining PHYSICAL EXAM: BP 138/81 Pulse 81 Wt 117.6 kg (259 lb 4.2 oz) LMP 07/17/2011 (Within Years) BMI 42.49 kg/m Last 3 Encounter BP Readings: Date: BP: 11/15/2024 138/81 10/06/2024 120/78 08/11/2024 138/90 BP - standardized method Pulse 1 BP #1: 138/83 Pulse #1: 81 beats/min 2 BP #2 : 139/80 Pulse #2 : 81 beats/min 3 BP #3 : 137/79 Pulse #3 : 81 beats/min Average Average BP: 138/81 Average Pulse: 81 beats/min Orthostatic vitals Supine Sitting Standing Standing BP : 124/81 Standing pulse : 81 BP cuff location BP cuff location: Left upper arm BP cuff size BP cuff size: large adult Comments for BP values First BP (right) First BP (left) Constitutional:No acute distress, Responsive, Normal habitus and Well-nourished Neck:Trachea midline No jugular venous distension Cardiovascular:Regular rate and ryhthm, normal S1 and S2, no murmurs, rubs, or gallops No peripheral edema Respiratory:Normal respiratory effort. Lungs clear bilaterally. Abdomen:Soft, non-tender, non-distended. Normal bowel sounds. No abdominal bruit Psychiatric: Alert and oriented x self, place, time, and setting Normal mood/affect DATA: Diagnostic tests reviewed for today's visit: Outside labs and imaging reports, if any, were reviewed LABS Creatinine (mg/dL) Date Value 08/11/2024 1.03 06/13/2024 1.04 05/20/2024 1.35 03/15/2024 1.14 12/28/2023 1.07 10/13/2023 1.04 04/22/2023 1.24 02/04/2023 1.14 06/30/2022 0.96 06/12/2022 1.27 03/13/2022 1.01 12/09/2021 1.02 05/16/2021 0.84 03/25/2021 0.88 12/21/2020 0.77 12/20/2020 1.12 12/19/2020 0.71 12/18/2020 0.72 12/06/2020 0.93 10/04/2020 0.84 06/25/2020 0.96 04/02/2020 0.92 10/21/2019 1.18 08/30/2019 0.70 08/24/2019 0.80 03/09/2019 0.82 03/03/2019 0.93 12/14/2018 0.73 06/30/2018 0.68 05/19/2018 0.85 02/23/2018 0.67 12/01/2017 0.82 BUN (mg/dL) Date Value 08/11/2024 24 06/13/2024 20 05/20/2024 34 03/15/2024 18 12/28/2023 29 10/13/2023 29 04/22/2023 28 02/04/2023 24 06/30/2022 29 06/12/2022 33 05/16/2021 14 03/25/2021 22 12/21/2020 15 12/20/2020 20 12/19/2020 18 12/18/2020 12 12/06/2020 28 10/04/2020 24 06/25/2020 21 04/02/2020 18 Potassium (mmol/L) Date Value 08/11/2024 4.7 06/13/2024 4.1 05/20/2024 5.0 03/15/2024 4.5 12/28/2023 3.7 10/13/2023 4.6 04/22/2023 5.3 02/04/2023 5.0 06/30/2022 4.6 06/12/2022 5.6 05/16/2021 4.4 03/25/2021 3.8 12/21/2020 4.6 12/20/2020 4.7 12/19/2020 4.4 12/18/2020 4.2 12/06/2020 3.7 10/04/2020 4.2 06/25/2020 4.6 04/02/2020 4.9 CO2 (mmol/L) Date Value 08/11/2024 24 06/13/2024 25 05/20/2024 25 03/15/2024 27 12/28/2023 27 05/16/2021 25 03/25/2021 24 12/21/2020 25 12/20/2020 23 12/19/2020 24 Hemoglobin (g/dL) Date Value 05/20/2024 13.8 12/28/2023 13.8 04/22/2023 12.3 02/04/2023 13.5 06/30/2022 13.4 05/16/2021 14.0 03/25/2021 15.0 12/21/2020 9.6 12/20/2020 10.4 12/19/2020 10.7 WBC (k/uL) Date Value 05/20/2024 8.85 12/28/2023 7.04 04/22/2023 6.47 02/04/2023 8.34 06/30/2022 6.55 05/16/2021 7.08 03/25/2021 7.76 12/21/2020 10.32 12/20/2020 10.90 12/19/2020 9.74 Platelet Count (k/uL) Date Value 05/20/2024 271 12/28/2023 220 04/22/2023 248 02/04/2023 279 06/30/2022 243 05/16/2021 272 03/25/2021 273 12/21/2020 154 12/20/2020 157 12/19/2020 168 Creatinine, Ur Random (UCRR) (mg/dL) Date Value 05/26/2024 32.1 12/28/2023 79.6 04/22/2023 48.0 02/04/2023 133.7 06/30/2022 56.8 04/18/2022 107.9 12/09/2021 91.4 05/16/2021 40.2 10/04/2020 34.9 10/21/2019 81.5 09/02/2017 40.4 12/25/2016 170.3 Protein, Urine Random (mg/dL) Date Value 05/26/2024 4 12/28/2023 10 04/22/2023 9 02/04/2023 11 06/30/2022 7 12/09/2021 12 05/16/2021 <4 10/04/2020 7 10/21/2019 9 09/02/2017 6 12/25/2016 21 Protein, Timed Urine (gm/24 Hr) Date Value 10/10/2010 7.90 08/28/2010 6.31 06/20/2010 7.08 05/02/2010 3.42 Hemoglobin A1C Date Value Ref Range Status 12/06/2020 5.5 4.3 - 5.6 % Final Comment: [place] [employer] guidelines indicate that patients with HgbA1c in the range 5.7-6.4% are at increased risk for development of diabetes, and intervention by lifestyle modification may be beneficial. HgbA1c greater or equal to 6.5% is considered diagnostic of diabetes. 03/09/2019 5.5 4.3 - 5.6 % Final Comment: [place] [employer] guidelines indicate that patients with HgbA1c in the range 5.7-6.4% are at increased risk for development of diabetes, and intervention by lifestyle modification may be beneficial. HgbA1c greater or equal to 6.5% is considered diagnostic of diabetes. Cholesterol, Total (mg/dL) Date Value 04/22/2023 106 06/25/2020 122 HDL Cholesterol (mg/dL) Date Value 04/22/2023 42 06/25/2020 53 LDL Cholesterol (mg/dL) Date Value 04/22/2023 41 06/25/2020 51 Triglyceride (mg/dL) Date Value 04/22/2023 116 06/25/2020 90 . Recent Labs 05/20/24 1233 HB 13.8 Recent Labs 08/11/24 1010 CA 9.1 P 3.1 ALB 3.7* No results for input(s): HEPSABQ in the last 1440 hours. Invalid input(s): HEPSABG PARVEZ Date Value Ref Range Status 02/04/2023 Negative Negative Final Comment: Anti-nuclear antibody test is used as an aid in diagnosis of systemic autoimmune diseases. Where positive and clinically warranted, follow-up using disease-specific testing is recommended. Low positive titers are not uncommon with advanced age, certain chronic infections, and malignancies among others. Test methodology: Indirect fluorescence immunoassay (IFA) using HEp-2 cells. IMAGING US kidney 2023 Right Kidney: -Renal length: 11.3 cm -Parenchyma: Normal parenchymal echogenicity. Normal parenchymal thickness. -Collecting system: No hydronephrosis. -Calculus: No echogenic, shadowing calculus. -Lesion: None. Left Kidney: -Renal length: 10.9 cm -Parenchyma: Normal parenchymal echogenicity. Normal parenchymal thickness. -Collecting system: No hydronephrosis. -Calculus: No echogenic, shadowing calculus. -Lesion: None. Bladder: Normal sonographic appearance. URINE ANALYSIS Urine chemistry findings reviewed pH, Urine Date Value Ref Range Status 05/26/2024 5.5 <8.[address], Ur Date Value Ref Range Status 05/26/2024 1.010 1.005 - 1.030 Final Glucose, Urine Date Value Ref Range Status 05/26/2024 Negative Negative Final Bilirubin, Urine Date Value Ref Range Status 05/26/2024 Negative Negative Final Ketones, Urine Date Value Ref Range Status 05/26/2024 Negative Negative Final Hemoglobin/Blood,Ur Date Value Ref Range Status 05/26/2024 Negative Negative Final Protein, Urine Date Value Ref Range Status 05/26/2024 Negative Negative Final Urobilinogen Date Value Ref Range Status 05/26/2024 0.2 EU/dL 0.2-1.0 EU/dL Final Nitrites Date Value Ref Range Status 05/26/2024 Negative Negative Final WBC, Urine Date Value Ref Range Status 05/26/2024 0-5 /HPF 0-5 /HPF Final ASSESSMENT: 69 year old female coming for follow up of lupus nephritis Encounter Diagnosis ICD-10-CM 1. Lupus nephritis, ISN/RPS class V ([facility]) M32.14 COMPREHENSIVE METABOLIC PANEL COMPLETE BLOOD COUNT AND DIFFERENTIAL URINALYSIS (WITH MICROSCOPIC) WITH CULTURE IF INDICATED PROTEIN / CREATININE RATIO 2. Stage 3a chronic kidney disease (HCC) N18.31 3. 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 Hypertension, unspecified type I10 PLAN: History of lupus nephritis and stage 3a CKD - membranous lupus on kidney biopsy 2009 - treatment course as noted, currently on benlysta (every 2 months). Following closely with rheumatology. In remission with no proteinuria or hematuria on dip, no proteinuria on last quantification, serologies ok. As far as renal function, mildly low GFR but stable in last 2-3 years additionally has history of hypertension, HFpEF and atrial fibrillation and is on lasix and toprol XL - was previously on spironolactone but stopped due to reported low BP. Some hemodynamically mediated fluctuations in GFR may be expected in this setting. US kidney unremarkable. Continue follow up with rheum - on benlysta. Discussed hydration and avoidance of NSAIDs She follows with cardiology closely for hypertension and cardiac management - advised checking BP at home At this point, renal function stable and in remission from lupus nephritis (membranous). Reassess labs, can follow up in a year if stable Recommended continued close follow up with other physicians for other medical conditions All of the above diagnoses stated are associated to the principal diagnosis and tests and labs ordered and interpreted are directly associated with one and other or may play a role in the pathophysiology of each of them. Portions of this note might have been copied from previous encounters, if any, but have been updated as necessary. I spent a total of 35 minutes on the date of the service which included preparing to see the patient, [id number] patient care, completing clinical documentation, obtaining and/or reviewing separately obtained history, performing a medically appropriate examination, counseling and educating the patient/family/caregiver, and ordering medications, tests, or procedures. SIGNATURE: Radu Salazar MD, FACP, FASN PATIENT NAME: Jesus Wolf DATE: November 15, 2024 TIME: 9:22 AM OFFICE NUMBER: [phone] CC: PRIMARY CARE PHYSICIAN: Wojciech Treviño MD, DO documented in this encounter [facility] 10-17-2024 Telephone encounter Note Refill Request Last office visit: 09/30/[address] Frances Request for medication is as follows: Requested Prescriptions Pending Prescriptions Disp Refills pantoprazole DR (PROTONIX) 40 mg tablet [Pharmacy Med Name: Pantoprazole Sodium 40 MG Oral Tablet Delayed Release] 180 tablet 0 Sig: Take 1 tablet by mouth twice daily Prescription(s) as above. Please process accordingly. Fercho Parks LPN [facility] 10-17-2024 Miscellaneous Notes Refill Request Last office visit: 09/30/[address] Frances Request for medication is as follows: Requested Prescriptions Pending Prescriptions Disp Refills pantoprazole DR (PROTONIX) 40 mg tablet [Pharmacy Med Name: Pantoprazole Sodium 40 MG Oral Tablet Delayed Release] 180 tablet 0 Sig: Take 1 tablet by mouth twice daily Prescription(s) as above. Please process accordingly. Fercho Parks LPN documented in this encounter [facility] 10-11-2024 History of Present illness Narrative Subjective Patient ID: Jesus Wolf is a 69 y.o. female. Jesus presents today to discuss several issues. She saw the film editor supervisor and he recommend that she get treated for sleep apnea. Currently she does not use a CPAP. She was tested many years ago in [place]. She is interested in the new surgery for sleep apnea. She does not want a CPAP. She is also having shortness a breath with exertion. She had a cardiac workup and nothing serious was uncovered. He recommended that she come here to get tested for oxygen to see if she needs oxygen when she exerts herself. She had COVID over the holidays and is slowly improving from that. It all stemmed from that infection. She had a pulmonary function tests done and it was a bit abnormal but she does not see a military technology specialist. She has had the Watchman device implanted in her heart. She had a blood clot in her left upper arm and she is currently on Eliquis for. She still has some pain in her upper arm when she lays on it at night. Sometimes the pain goes down her arm and is severe and wakes her up. Review of Systems Respiratory: Positive for apnea and shortness of breath. Cardiovascular: Negative. Gastrointestinal: Negative. Genitourinary: Negative. Musculoskeletal: Negative. Skin: Negative. Neurological: Negative. Psychiatric/Behavioral: Negative. Objective Physical Exam Vitals reviewed. Constitutional: General: She is not in acute distress. Appearance: She is morbidly obese. She is not ill-appearing. HENT: Head: Normocephalic. Cardiovascular: Rate and Rhythm: Normal rate and regular rhythm. Pulses: Normal pulses. Heart sounds: Normal heart sounds. No murmur heard. Pulmonary: Effort: Pulmonary effort is normal. No respiratory distress. Breath sounds: Normal breath sounds. No wheezing, rhonchi or rales. Neurological: General: No focal deficit present. Mental Status: She is alert and oriented to person, place, and time. Psychiatric: Attention and Perception: Attention normal. Mood and Affect: Mood and affect normal. Speech: Speech normal. Behavior: Behavior normal. Behavior is cooperative. Thought Content: Thought content normal. Cognition and Memory: Cognition normal. Judgment: Judgment normal. Assessment/Plan Jesus was seen today for discuss 6 min walk. Diagnoses and all orders for this visit: Obstructive sleep apnea - Ambulatory referral to Sleep Medicine (Non[facility]); Future We will refer to sleep specialist who can then determine if she needs another sleep test if she is candidate for a new procedure. Dyspnea on exertion - Six minute walk; Future Check 6 minute pulse ox study to see if she qualifies for portable oxygen. Systemic lupus erythematosus, unspecified SLE type, unspecified organ involvement status ([facility]) Follow up with specialist as directed. Lupus can affect the lumgs. Acute deep vein thrombosis (DVT) of brachial vein of left upper extremity ([facility]) Likely residual blood clot. She is currently on therapy. Would not recommend any further evaluation at this time. Obesity, morbid ([facility]) She is obese. She would benefit from weight loss. It would help her sleep apnea. I believe there is a weight criteria for sleep apnea implant-[employer]. Chronic diastolic heart failure ([facility]) Stable. Follow up with film editor supervisor. Recent CT scan of her chest and echocardiogram reviewed with the patient. Atypical atrial flutter (CMS-HCC) Seems to be in normal sinus rhythm now. She has had the watchman device implanted. [facility] HNO ID: [id number] Author: COCO GUZMAN RN Service: ? Author Type: Registered Nurse Type: Progress Notes Filed: 10/06/2024 12:05 Note Text: Since your last infusion, have [...] rash or open sores? No [facility] 10-06-2024 History of Present illness Narrative Since your [...] open sores? No documented in this encounter [facility] 10-05-2024 Telephone encounter Note Spoke with patient who confirmed she is well and will be in for her infusion tomorrow. [facility] 10-05-2024 Miscellaneous Notes Spoke with patient who confirmed she is well and will be in for her infusion tomorrow. Called patient to confirm infusion appointment. No answer, left voicemail asking for return call or MyChart message confirming that they are well and will be coming to infusion appointment as scheduled. documented in this encounter [facility] 10-05-2024 Telephone encounter Note Called patient to confirm infusion appointment. No answer, left voicemail asking for return call or MyChart message confirming that they are well and will be coming to infusion appointment as scheduled. [facility] 09-30-2024 History and physical note FOLLOW UP OFFICE VISIT REASON FOR VISIT: Follow-up UC HPI: Jesus Wolf is a 69 year old female who presents for follow-up UC. She overall has been doing well. She has had some cardiac issues and recently had a Watchman device placed. Her bowel movements are otherwise under good control with colestipol and lialda. She denies any melena, hematochezia or rectal bleeding. Past Clinical Work-Up: Last office visit 12/22/2023: ASSESSMENT AND PLAN: 68-year-old female with past [...] flag or alarm symptoms at this time. 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 Latest Ref Rng 03/15/2024 03/18/2024 05/20/2024 06/13/2024 WBC 3.70 - 11.00 k/uL 8.85 RBC 3.90 - 5.20 m/uL 4.34 Hemoglobin 11.5 - 15.5 g/dL 13.8 Hematocrit 36.0 - 46.0 % 41.2 MCV 80.0 - 100.0 fL 94.9 MCH 26.0 - 34.0 pg 31.8 MCHC 30.5 - 36.0 g/dL 33.5 RDW-CV 11.5 - 15.0 % 12.9 Platelet Count 150 - 400 k/uL 271 MPV 9.0 - 12.7 fL 9.9 Neut% % 86.7 Abs Neut (ANC) 1.45 - 7.50 k/uL 7.67 (H) Lymph% % 7.7 Abs Lymph 1.00 - 4.00 k/uL 0.68 (L) Medina% % 3.8 Abs Medina <0.87 k/uL 0.34 Eosin% % 1.0 Abs Eosin <0.46 k/uL 0.09 Baso% % 0.5 Abs Baso <0.11 k/uL 0.04 Immature Gran % % 0.3 IMMATURE GRANS (ABS) <0.10 k/uL 0.03 NRBC /100 WBC 0.0 Absolute nRBC <0.01 k/uL <0.01 DTYPE Auto Protein, Total 6.3 - 8.0 g/dL 6.9 6.1 (L) Albumin 3.9 - 4.9 g/dL 4.4 4.0 Calcium 8.5 - 10.2 mg/dL 9.3 9.8 8.9 Bilirubin, Total 0.2 - 1.3 mg/dL 0.5 0.4 Alkaline Phosphatase 34 - 123 U/L 135 (H) 108 AST 13 - 35 U/L 29 27 ALT 7 - 38 U/L 29 26 Glucose 74 - 99 mg/dL 89 113 (H) 98 BUN 7 - 21 mg/dL 18 34 (H) 20 Creatinine 0.58 - 0.96 mg/dL 1.14 (H) 1.35 (H) 1.04 (H) Sodium 136 - 144 mmol/L 143 140 143 Potassium 3.7 - 5.1 mmol/L 4.5 5.0 4.1 Chloride 98 - 107 mmol/L 105 105 105 CO2 22 - 30 mmol/L 27 25 25 Anion Gap 8 - 15 mmol/L 11 10 13 eGFR >=60 mL/min/1.73m 53 (L) 43 (L) 59 (L) CRP <0.9 mg/dL 0.3 WSR 0 - 20 mm/hr 8 ALLERGIES Allergen Reactions Dofetilide Other: See Comments, [...] TUNNEL RIGHT WRIST surgical correction COLONOSCOPY 05/10/2019 [facility] COLONOSCOPY GEN ANES 07/23/2020 Dr. Frances/Diverticulosis/Hemorrhoids/ Ulcerative Colitis/Rpt in 2 yrs. COLONOSCOPY SCREENING 03/2023 EGD EUS 01/11/2020 [facility] LASIK Right prior to [...] Never Smokeless tobacco: Never Vaping Use Vaping status: Never Used Substance Use Topics Alcohol use: Yes Comment: very rare Drug use: No Comment: denies tx for drug/alcohol abuse in the past. Current Outpatient Medications Medication Sig Mesalamine (LIALDA) 1.2 gram EC tablet TAKE 4 TABLETS BY MOUTH ONCE DAILY pantoprazole DR (PROTONIX) 40 mg tablet Take 1 tablet by mouth twice daily alendronate (FOSAMAX) 70 mg tablet Take 1 tablet by mouth one time a week. In the morning with a full glass of water, on an empty stomach. Do not take anything else by mouth or lie down for the next 30 minutes. hydrOXYchloroQUINE (PLAQUENIL) 200 mg tablet take 1 tablet by mouth twice a day with food colestipol (COLESTID) 1 gram tablet Take 3 tablets by mouth two times a day. ferrous sulfate (IRON) 325 mg (65 mg iron) tablet Take 1 tablet by mouth once daily. amiodarone (PACERONE) 200 mg tablet Take 1 tablet by mouth [...] in the MR contrast administration guidelines link. amoxicillin (AMOXIL) 500 mg capsule Take 4 tablets one hour prior to dental procedure (Patient not taking: Reported on 10/13/2023) metoprolol succinate ER (TOPROL XL) 50 mg 24 hr tablet TAKE 1 TABLET BY MOUTH IN THE MORNING AND 2 TABLETS BY MOUTH IN THE EVENING ELIQUIS 5 mg tab(s) Take 5 mg by mouth twice daily. acetaminophen (TYLENOL) 500 mg tablet Take 1 tablet by mouth every 4 hours as needed for pain. cxuqzhi-dfxepplyn-ctgydja D3 500 mg-5 mcg (200 unit) per tablet Take 1 tablet by mouth three times daily. MV with Oha-Dklnrgep-Esfypg (CENTRUM SILVER) 0.4 mg-300 mcg- 250 mcg [...] 10 mg by mouth daily at bedtime. Cholecalciferol, Vitamin D3, 2,000 unit cap Take by mouth once daily. vitamin b complex(B COMPLEX TAB) one daily multivitamins w-minerals/lut(CENTRUM SILVER TAB) Take one(1) tablet daily. No current facility-administered medications for this visit. REVIEW OF SYSTEMS: PAIN ASSESSMENT: Negative for [...] No history of dysuria, frequency or incontinence TURNAROUND PLANNER: Negative for abnormal vaginal bleeding, abnormal vaginal [...] syncope, paralysis, seizures or tremors PHYSICAL EXAMINATION: LMP 07/17/2011 General appearance: Well appearing, alert, [...] intact. Rectal: Examination deferred ASSESSMENT AND PLAN: 69-year-old female with past medical history of SLE on mycophenolate and Plaquenil, hypertension, anxiety, A. fib on Eliquis and ulcerative colitis on mesalamine therapy presenting for follow up of ulcerative colitis. Most recent colonoscopy with only proctitis, Canasa suppositories added to mesalamine therapy. She will continue on colestipol. She overall has no red flag or alarm symptoms at this time. RTC 8 months I spent a total of 30 minutes on the date of service which included preparing to see the patient, face to face patient care, completing clinical documentation, performing a medically appropriate examination and counseling and educating the patient/family/caregiver. Dione Frances MD, MPH Gastroenterology and Hepatology This note was partially generated using the [employer] voice recognition system, there may be some incorrect words, spellings, and punctuation that were not noted in checking the note before saving [facility] 09-30-2024 History and physical note FOLLOW UP OFFICE VISIT REASON FOR VISIT: Follow-up UC HPI: Jesus Wolf is a 69 year old female who presents for follow-up UC. She overall has been doing well. She has had some cardiac issues and recently had a Watchman device placed. Her bowel movements are otherwise under good control with colestipol and lialda. She denies any melena, hematochezia or rectal bleeding. Past Clinical Work-Up: Last office visit 12/22/2023: ASSESSMENT AND PLAN: 68-year-old female with past [...] flag or alarm symptoms at this time. 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 Latest Ref Rng 03/15/2024 03/18/2024 05/20/2024 06/13/2024 WBC 3.70 - 11.00 k/uL 8.85 RBC 3.90 - 5.20 m/uL 4.34 Hemoglobin 11.5 - 15.5 g/dL 13.8 Hematocrit 36.0 - 46.0 % 41.2 MCV 80.0 - 100.0 fL 94.9 MCH 26.0 - 34.0 pg 31.8 MCHC 30.5 - 36.0 g/dL 33.5 RDW-CV 11.5 - 15.0 % 12.9 Platelet Count 150 - 400 k/uL 271 MPV 9.0 - 12.7 fL 9.9 Neut% % 86.7 Abs Neut (ANC) 1.45 - 7.50 k/uL 7.67 (H) Lymph% % 7.7 Abs Lymph 1.00 - 4.00 k/uL 0.68 (L) Medina% % 3.8 Abs Medina <0.87 k/uL 0.34 Eosin% % 1.0 Abs Eosin <0.46 k/uL 0.09 Baso% % 0.5 Abs Baso <0.11 k/uL 0.04 Immature Gran % % 0.3 IMMATURE GRANS (ABS) <0.10 k/uL 0.03 NRBC /100 WBC 0.0 Absolute nRBC <0.01 k/uL <0.01 DTYPE Auto Protein, Total 6.3 - 8.0 g/dL 6.9 6.1 (L) Albumin 3.9 - 4.9 g/dL 4.4 4.0 Calcium 8.5 - 10.2 mg/dL 9.3 9.8 8.9 Bilirubin, Total 0.2 - 1.3 mg/dL 0.5 0.4 Alkaline Phosphatase 34 - 123 U/L 135 (H) 108 AST 13 - 35 U/L 29 27 ALT 7 - 38 U/L 29 26 Glucose 74 - 99 mg/dL 89 113 (H) 98 BUN 7 - 21 mg/dL 18 34 (H) 20 Creatinine 0.58 - 0.96 mg/dL 1.14 (H) 1.35 (H) 1.04 (H) Sodium 136 - 144 mmol/L 143 140 143 Potassium 3.7 - 5.1 mmol/L 4.5 5.0 4.1 Chloride 98 - 107 mmol/L 105 105 105 CO2 22 - 30 mmol/L 27 25 25 Anion Gap 8 - 15 mmol/L 11 10 13 eGFR >=60 mL/min/1.73m 53 (L) 43 (L) 59 (L) CRP <0.9 mg/dL 0.3 WSR 0 - 20 mm/hr 8 ALLERGIES Allergen Reactions Dofetilide Other: See Comments, [...] TUNNEL RIGHT WRIST surgical correction COLONOSCOPY 05/10/2019 [facility] COLONOSCOPY GEN ANES 07/23/2020 Dr. Frances/Diverticulosis/Hemorrhoids/ Ulcerative Colitis/Rpt in 2 yrs. COLONOSCOPY SCREENING 03/2023 EGD EUS 01/11/2020 [facility] LASIK Right prior to [...] Never Smokeless tobacco: Never Vaping Use Vaping status: Never Used Substance Use Topics Alcohol use: Yes Comment: very rare Drug use: No Comment: denies tx for drug/alcohol abuse in the past. Current Outpatient Medications Medication Sig Mesalamine (LIALDA) 1.2 gram EC tablet TAKE 4 TABLETS BY MOUTH ONCE DAILY pantoprazole DR (PROTONIX) 40 mg tablet Take 1 tablet by mouth twice daily alendronate (FOSAMAX) 70 mg tablet Take 1 tablet by mouth one time a week. In the morning with a full glass of water, on an empty stomach. Do not take anything else by mouth or lie down for the next 30 minutes. hydrOXYchloroQUINE (PLAQUENIL) 200 mg tablet take 1 tablet by mouth twice a day with food colestipol (COLESTID) 1 gram tablet Take 3 tablets by mouth two times a day. ferrous sulfate (IRON) 325 mg (65 mg iron) tablet Take 1 tablet by mouth once daily. amiodarone (PACERONE) 200 mg tablet Take 1 tablet by mouth [...] in the MR contrast administration guidelines link. amoxicillin (AMOXIL) 500 mg capsule Take 4 tablets one hour prior to dental procedure (Patient not taking: Reported on 10/13/2023) metoprolol succinate ER (TOPROL XL) 50 mg 24 hr tablet TAKE 1 TABLET BY MOUTH IN THE MORNING AND 2 TABLETS BY MOUTH IN THE EVENING ELIQUIS 5 mg tab(s) Take 5 mg by mouth twice daily. acetaminophen (TYLENOL) 500 mg tablet Take 1 tablet by mouth every 4 hours as needed for pain. hbuuisc-jgcgnfmfo-cjubmkt D3 500 mg-5 mcg (200 unit) per tablet Take 1 tablet by mouth three times daily. MV with Bve-Lrtenuow-Ddcvnc (CENTRUM SILVER) 0.4 mg-300 mcg- 250 mcg [...] 10 mg by mouth daily at bedtime. Cholecalciferol, Vitamin D3, 2,000 unit cap Take by mouth once daily. vitamin b complex(B COMPLEX TAB) one daily multivitamins w-minerals/lut(CENTRUM SILVER TAB) Take one(1) tablet daily. No current facility-administered medications for this visit. REVIEW OF SYSTEMS: PAIN ASSESSMENT: Negative for [...] No history of dysuria, frequency or incontinence TURNAROUND PLANNER: Negative for abnormal vaginal bleeding, abnormal vaginal [...] syncope, paralysis, seizures or tremors PHYSICAL EXAMINATION: [facility] 07/17/2011 General appearance: Well appearing, alert, in [...] intact. Rectal: Examination deferred ASSESSMENT AND PLAN: 69-year-old female with past medical history of SLE on mycophenolate and Plaquenil, hypertension, anxiety, A. fib on Eliquis and ulcerative colitis on mesalamine therapy presenting for follow up of ulcerative colitis. Most recent colonoscopy with only proctitis, Canasa suppositories added to mesalamine therapy. She will continue on colestipol. She overall has no red flag or alarm symptoms at this time. RTC 8 months I spent a total of 30 minutes on the date of service which included preparing to see the patient, face to face patient care, completing clinical documentation, performing a medically appropriate examination and counseling and educating the patient/family/caregiver. Dione Frances MD, MPH Gastroenterology and Hepatology This note was partially generated using the [employer] voice recognition system, there may be some incorrect words, spellings, and punctuation that were not noted in checking the note before saving documented in this encounter [facility] 09-30-2024 Instructions Dione Frances MD - 09/30/2024 9:43 AM EST Continue mesalamine Continue colestipol 5 pill daily Continue Protonix twice daily Colonoscopy 2025 documented in this encounter [facility] 09-15-2024 Radiology Diagnostic study note [facility] [place] [address] [place] [address] CT Scan Report Signed Patient: Jesus Wolf MR#: [id number] : 1955 Acct:[id number] Age/Sex: 69 / F ADM Date: 5 Loc: CT Room: Type: [facility] Attending Dr: Yuriy Conway MD Copies to: Yuriy Conway MD, [facility]~ Ordering Provider: Yuriy Conway MD, [facility] Date of Service: 09/15/24 CT/CT angio chest: R93.1 CTA chest CLINICAL DATA: Abnormal echo. Shortness of breath with exertion.. TECHNIQUE: Intravenous contrast-enhanced CT angiography of the chest was performed. Axial, sagittal, coronal, and 3D-dimensional reconstructions were created and reviewed. These CT exams were performed using one or more of the following dose reduction techniques: Automated exposure control, adjustment of the mA and/or kV according to patient size, or use of iterative reconstruction technique. COMPARISON: CT chest 09/18/2019 02/07/2022 FINDINGS: Chest: Mediastinum:Thoracic ribs demonstrates mild calcification with ectasia of the ascending thoracic aorta measuring 4.5 cm. No dissection is seen. Three-vesselarch is noted. Pulmonary trunk appears dilated at 4.5 cm. No pericardial effusion. Left atrial occlusion device is seen. No lymphadenopathy. The esophagus is grossly unremarkable. Lungs:Scattered areas of lung scarring. No consolidation pneumothorax or pleural effusion. No nodule. Abd: No acute process.[ Soft tissues/Bones: No acute findings. Osseous structures demonstrate degenerative change. CT/CT angio chest IMPRESSION: Ectasia of the 8 ascending thoracic rim measuring 4.5 cm unchanged from the 2021 study. No evidence of dissection or rupture. Dilatation of the pulmonary trunk suspicious for pulmonary hypertension. Impression dictated by: Jose Concepcion Jr., DAjayOAjay09/15/2024 3:59 PM Dictation Location: [place] [address] Transcribed By: [facility] 09/15/24 155 Dictated By: Jose Concepcion Jr, DO 09/15/24 1553 Signed By: 09/15/24 1559 [facility] 09-08-2024 Telephone encounter Note Refill Request Last office visit: 12/22/[address] Frances Future office visit: 09/30/[address] Frances Request for medication is as follows: Requested Prescriptions Pending Prescriptions Disp Refills Mesalamine (LIALDA) 1.2 gram EC tablet [Pharmacy Med Name: Mesalamine 1.2 GM Oral Tablet Delayed Release] 360 tablet 0 Sig: TAKE 4 TABLETS BY MOUTH ONCE DAILY Prescription(s) as above. Please process accordingly. Fercho Parks LPN [facility] 09-08-2024 Miscellaneous Notes Refill Request Last office visit: 12/22/[address] Frances Future office visit: 09/30/[address] Frances Request for medication is as follows: Requested Prescriptions Pending Prescriptions Disp Refills Mesalamine (LIALDA) 1.2 gram EC tablet [Pharmacy Med Name: Mesalamine 1.2 GM Oral Tablet Delayed Release] 360 tablet 0 Sig: TAKE 4 TABLETS BY MOUTH ONCE DAILY Prescription(s) as above. Please process accordingly. Fercho Parks LPN documented in this encounter [facility] 08-29-2024 Procedure note [facility] enter 08-11-2024 Telephone encounter Note Called patient to confirm she received the message that was sent by Ana Paula canceling her appointment. Patient reports vaguely getting a message of sorts. I asked the patient if she would like to reschedule. She declined and reports her knee has been doing ok since the last injection. [facility] 08-11-2024 Miscellaneous Notes Called patient to confirm she received the message that was sent by Ana Paula canceling her appointment. Patient reports vaguely getting a message of sorts. I asked the patient if she would like to reschedule. She declined and reports her knee has been doing ok since the last injection. documented in this encounter [facility] 08-11-2024 Note HNO ID: [id number] Author: SAI PLASCENCIA RN Service: ? Author Type: Registered Nurse Type: Progress Notes Filed: 08/11/2024 13:12 Note Text: Since your last infusion, have you: Had any major change in your health (including new diagnosis of cancer, COPD or cogestive heart failure? No Been hospitalized? No Had any infections? No Taking antibiotics/antivirals/antifungal s for current infection? No Had surgery or [...] rash or open sores? No [facility] 08-11-2024 History of Present illness Narrative Since your last infusion, have you: Had any major change in your health (including new diagnosis of cancer, COPD or cogestive heart failure? No Been hospitalized? No Had any infections? No Taking antibiotics/antivirals/antifungal s for current infection? No Had surgery or [...] open sores? No documented in this encounter [facility] 08-08-2024 Telephone encounter Note Called and spoke with patient. Confirmed she is well and will be coming for her infusion on . [facility] 08-08-2024 Miscellaneous Notes Called and spoke with patient. Confirmed she is well and will be coming for her infusion on . documented in this encounter [facility] 08-05-2024 History of Present illness Narrative Subjective Jesus Wolf is a 69 y.o. female Chief Complaint Follow-up HPI Review of Systems Cardiovascular: Positive for dyspnea on exertion and irregular heartbeat. All other systems reviewed and are negative. Vitals: 08/05/24 1501 BP: 110/72 BP Location: Left arm Patient Position: Sitting Pulse: 81 Weight: 116 kg (255 lb 3.2 oz) Height: 1.702 m (5' 7 ) EKG done in office today Objective Physical Exam Constitutional: Appearance: Normal appearance. HENT: Nose: Nose normal. Neck: Vascular: No carotid bruit. Cardiovascular: Rate and Rhythm: Normal rate. Pulses: Normal pulses. Heart sounds: Normal heart [...] content normal. Judgment: Judgment normal. Allergies Codeine; Dofetilide; Epinephrine; Sulfa (sulfonamide antibiotics); Prochlorperazine; Diphth,pertus(acell),tetanus; Iodinated contrast media; and Tetanus vaccines and toxoid Current Medications Current Outpatient Medications: alendronate (Fosamax) 70 mg tablet, Take 1 tablet (70 mg) by mouth every 7 days. On Thursday. Take in the morning with a full glass of water, on an empty stomach, and do not take anything else by mouth or lie down for the next 30 min., Disp: , Rfl: amiodarone (Pacerone) 200 mg tablet, Take 2 tablets (400 mg) by mouth once daily. (Patient taking differently: Take 2 tablets (400 mg) by mouth 2 times a day.), Disp: 180 tablet, Rfl: 1 atorvastatin (Lipitor) 40 mg tablet, Take 1 tablet (40 mg) by mouth once daily., Disp: 90 tablet, Rfl: 3 belimumab (Benlysta) 120 mg recon soln IV injection, Infuse into a venous catheter every 8 (eight) weeks., Disp: , Rfl: Bifidobacterium infantis (ALIGN ORAL), Take 1 tablet by mouth once daily., Disp: , Rfl: busPIRone (Buspar) 5 mg tablet, Take 1 tablet (5 mg) by mouth 2 times a day., Disp: , Rfl: celecoxib (CeleBREX) 200 mg capsule, Take 1 capsule (200 mg) by mouth 2 times a day., Disp: , Rfl: cholecalciferol (Vitamin D-3) 50 mcg (2,000 unit) capsule, Take 3 capsules (150 mcg) by mouth once daily., Disp: , Rfl: colestipol (Colestid) 1 gram tablet, Take 3 tablets (3 g) by mouth 2 times a day. Take at least 1 hour after or 4 hours before other medications., Disp: , Rfl: Eliquis 5 mg tablet, Take 1 tablet by mouth twice daily, Disp: 60 tablet, Rfl: 0 ferrous sulfate 325 (65 Fe) MG tablet, Take 1 tablet (325 mg) by mouth once daily with breakfast., Disp: , Rfl: furosemide (Lasix) 20 mg tablet, Take 2 tablets (40 mg) by mouth once daily., Disp: , Rfl: hydroxychloroquine (Plaquenil) 200 mg tablet, Take 1 tablet (200 mg) by mouth 2 times a day., Disp: , Rfl: levothyroxine (Synthroid, Levoxyl) 50 mcg tablet, Take 1 tablet (50 mcg) by mouth once daily in the morning. Take before meals., Disp: , Rfl: mesalamine (Lialda) 1.2 gram EC tablet, Take 2 tablets (2.4 g) by mouth 2 times a day., Disp: , Rfl: metoprolol succinate XL (Toprol-XL) 50 mg 24 hr tablet, Take 1 tablet (50 mg) by mouth see administration instructions. Take one tablet by mouth every morning and 2 tablets by mouth every evening, Disp: 270 tablet, Rfl: 3 multivitamin with minerals iron-free (Centrum Silver), Take 1 tablet by mouth once daily., Disp: , Rfl: pantoprazole (ProtoNix) 40 mg EC tablet, Take 1 tablet (40 mg) by mouth 2 times a day. Do not crush, chew, or split., Disp: , Rfl: venlafaxine XR (Effexor-XR) 150 mg 24 hr capsule, Take 1 capsule (150 mg) by mouth once daily. Do not crush or chew., Disp: , Rfl: Assessment/Plan 1. Paroxysmal atrial fibrillation (Multi) Follow Up In Cardiology Scribe Attestation By signing my name below, I, Bell Mcclendon LPN, Scribe attest that this documentation has been prepared under the direction and in the presence of Yuriy Conway MD. Provider Attestation - Scribe documentation All medical record entries made by the Scribe were at my direction and personally dictated by me. I have reviewed the chart and agree that the record accurately reflects my personal performance of the history, physical exam, discussion and plan. Subjective Jesus Wolf is a 69 y.o. female Chief Complaint Follow-up HPI Patient is in the office for follow-up for paroxysmal defibrillation among other problems noted below. Back in October 2023 she had ablation for atrial fibrillation at [facility] which was successful. 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 In March 2024 she underwent placement of a watchman's device with no complications. Because she need to be on the Eliquis for VTE she was not placed on dual antiplatelet therapy. Patient is scheduled to have a CT scan for follow-up on the watchman directed by Dr. Fletcher. She continued to have breakthrough atrial fibrillation despite being on 400 mg daily of the amiodarone. She is somewhat annoyed by the recurrence. In June 2024 she had COVID infection which apparently was severe and led to generalized fatigue and dyspnea. Her examination today did not demonstrate any pulmonary abnormalities and her EKG revealed normal sinus rhythm with first-degree AV block, QRS duration 116 ms and QTc interval was 504 ms and when factored in the QRS duration, it falls back into therapeutic range. She has no lower extremity edema and her blood pressure is under control. She has sleep apnea but is intolerant to CPAP machine which is contributing to her symptoms of dyspnea and fatigue. ASSESSMENT AND PLAN: 1. Paroxysmal atrial fibrillation, status post radiofrequency ablation with pulmonary vein isolation at [facility] in 2019 and in 2023 with recurrences while on amiodarone therapy. Currently anticoagulated with Eliquis and she is also status post watchman's device March 2024. 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 Will leave the patient on amiodarone 400 mg daily for the time being and utilize metoprolol tartrate 25 mg for treatment of breakthrough events of atrial fibrillation. Meanwhile increase to baseline beta-girish therapy of metoprolol succinate up to 200 mg daily. Will initiate amiodarone workup. 2. Obstructive sleep apnea, unable to utilize CPAP machine. She utilizes oxygen at night. Weight reduction program was recommended to help in that regard 3. Systemic lupus, in remission, on medical therapy with hydroxychloroquine. Managed by the [facility] 4. Morbid obesity, patient is trying to lose weight with lifestyle modification and seems to be motivated. 5. Hyperlipidemia, on medical therapy, currently on 40 mg daily of atorvastatin. Lipid profile has been monitored closely and has been under control. 6. High-risk medication, on Eliquis no bleeding complications and amiodarone, amiodarone testing will be initiated and since she has dyspnea we will start with PFT and chest x-ray right away 7. Essential hypertension, on medical therapy, currently under control 8. History of hypercalcemia caused by hyperparathyroidism status post parathyroidectomy last year at the [facility] with success 10. Ascending aortic aneurysm measured 4.6 cm from echocardiogram September 2021, follow-up echocardiogram in 2021 measured only 3.8 cm, patient is scheduled for follow-up echocardiogram Review of Systems Cardiovascular: Positive for dyspnea on exertion and irregular heartbeat. All other systems reviewed and are negative. Vitals: 08/05/24 1501 BP: 110/72 BP Location: Left arm Patient Position: Sitting Pulse: 81 Weight: 116 kg (255 lb 3.2 oz) Height: 1.702 m (5' 7 ) EKG done in office today Objective Physical Exam Constitutional: Appearance: Normal appearance. HENT: Nose: Nose normal. Neck: Vascular: No carotid bruit. Cardiovascular: Rate and Rhythm: Normal rate. Pulses: Normal pulses. Heart sounds: Normal heart [...] content normal. Judgment: Judgment normal. Allergies Codeine; Dofetilide; Epinephrine; Sulfa (sulfonamide antibiotics); Prochlorperazine; Diphth,pertus(acell),tetanus; Iodinated contrast media; and Tetanus vaccines and toxoid Current Medications Current Outpatient Medications: alendronate (Fosamax) 70 mg tablet, Take 1 tablet (70 mg) by mouth every 7 days. On Thursday. Take in the morning with a full glass of water, on an empty stomach, and do not take anything else by mouth or lie down for the next 30 min., Disp: , Rfl: amiodarone (Pacerone) 200 mg tablet, Take 2 tablets (400 mg) by mouth once daily. (Patient taking differently: Take 2 tablets (400 mg) by mouth 2 times a day.), Disp: 180 tablet, Rfl: 1 atorvastatin (Lipitor) 40 mg tablet, Take 1 tablet (40 mg) by mouth once daily., Disp: 90 tablet, Rfl: 3 belimumab (Benlysta) 120 mg recon soln IV injection, Infuse into a venous catheter every 8 (eight) weeks., Disp: , Rfl: Bifidobacterium infantis (ALIGN ORAL), Take 1 tablet by mouth once daily., Disp: , Rfl: busPIRone (Buspar) 5 mg tablet, Take 1 tablet (5 mg) by mouth 2 times a day., Disp: , Rfl: celecoxib (CeleBREX) 200 mg capsule, Take 1 capsule (200 mg) by mouth 2 times a day., Disp: , Rfl: cholecalciferol (Vitamin D-3) 50 mcg (2,000 unit) capsule, Take 3 capsules (150 mcg) by mouth once daily., Disp: , Rfl: colestipol (Colestid) 1 gram tablet, Take 3 tablets (3 g) by mouth 2 times a day. Take at least 1 hour after or 4 hours before other medications., Disp: , Rfl: Eliquis 5 mg tablet, Take 1 tablet by mouth twice daily, Disp: 60 tablet, Rfl: 0 ferrous sulfate 325 (65 Fe) MG tablet, Take 1 tablet (325 mg) by mouth once daily with breakfast., Disp: , Rfl: furosemide (Lasix) 20 mg tablet, Take 2 tablets (40 mg) by mouth once daily., Disp: , Rfl: hydroxychloroquine (Plaquenil) 200 mg tablet, Take 1 tablet (200 mg) by mouth 2 times a day., Disp: , Rfl: levothyroxine (Synthroid, Levoxyl) 50 mcg tablet, Take 1 tablet (50 mcg) by mouth once daily in the morning. Take before meals., Disp: , Rfl: mesalamine (Lialda) 1.2 gram EC tablet, Take 2 tablets (2.4 g) by mouth 2 times a day., Disp: , Rfl: multivitamin with minerals iron-free (Centrum Silver), Take 1 tablet by mouth once daily., Disp: , Rfl: pantoprazole (ProtoNix) 40 mg EC tablet, Take 1 tablet (40 mg) by mouth 2 times a day. Do not crush, chew, or split., Disp: , Rfl: venlafaxine XR (Effexor-XR) 150 mg 24 hr capsule, Take 1 capsule (150 mg) by mouth once daily. Do not crush or chew., Disp: , Rfl: Assessment/Plan 1. Paroxysmal atrial fibrillation (Multi) Follow Up In Cardiology 2. High risk medication use 3. Chronic diastolic heart failure 4. Shortness of breath 5. Essential hypertension 6. Thoracic aortic aneurysm without rupture, unspecified part ([facility]) 7. Nonsustained ventricular tachycardia (Multi) 8. Obstructive sleep apnea 9. Never smoked any substance 10. BMI 39.0-39.9,adult Scribe Attestation By signing my name below, IBell LPN, Scribe attest that this documentation has been prepared [...] discussion and plan. documented in this encounter [facility] Work Phone: 08-05-2024 Instructions Bell Zamarripa LPN - 08/05/2024 3:00 PM EST Please bring all medicines, vitamins, and herbal supplements with you when you come to the office. Prescriptions will not be filled unless you are compliant with your follow up appointments or have a follow up appointment scheduled as per instruction of your physician. Refills should be requested at the time of your visit. BMI was above normal measurement. Current weight: 116 kg (255 lb 3.2 oz) Weight change since last visit (-) denotes wt loss -9.3 lbs Weight loss needed to achieve BMI 25: 95.9 Lbs Weight loss needed to achieve BMI 30: 64.1 Lbs Provided instructions on dietary changes. Amiodarone follow up per routine Amio 200 mg two times daily Toprol xl 200 mg daily Echo Luis documented in this encounter [facility] Work Phone: 07-18-2024 Miscellaneous Notes Patient called back and stated that she now is testing positive for covid. She started feeling worse after Thanksgiving and took a Covid test today and tested Positive. What is your suggestions for her? She is past the 5 day window so it is just supportive care. If she gets short of breath she should go to the emergency room. Use cough suppressants an analgesics notified documented in this encounter [facility] 07-18-2024 Telephone encounter Note Patient called back and stated that she now is testing positive for covid. She started feeling worse after Thanksgiving and took a Covid test today and tested Positive. What is your suggestions for her? [facility] 07-18-2024 Telephone encounter Note She is past the 5 day window so it is just supportive care. If she gets short of breath she should go to the emergency room. Use cough suppressants an analgesics [facility] 07-18-2024 Telephone encounter Note notified [facility] 07-18-2024 Telephone encounter Note Pharmacy has requested the following refill(s): Requested Prescriptions Pending Prescriptions Disp Refills pantoprazole DR (PROTONIX) 40 mg tablet [Pharmacy Med Name: Pantoprazole Sodium 40 MG Oral Tablet Delayed Release] 180 tablet 0 Sig: Take 1 tablet by mouth twice daily [facility] 07-18-2024 Miscellaneous Notes Pharmacy has requested the following refill(s): Requested Prescriptions Pending Prescriptions Disp Refills pantoprazole DR (PROTONIX) 40 mg tablet [Pharmacy Med Name: Pantoprazole Sodium 40 MG Oral Tablet Delayed Release] 180 tablet 0 Sig: Take 1 tablet by mouth twice daily documented in this encounter [facility] 07-11-2024 History of Present illness Narrative Subjective Patient ID: Jesus Wolf is a 69 y.o. female. Jesus Wolf is a 69 y.o. female presenting today with a cough. She says that she has coughing, congestion, sore throat, earache, headache and sinus issues. Her symptoms started to on Thursday and got worse yesterday. She denies fever, chills, nausea and vomiting. She takes tylenol for symptoms and says her symptoms get a little better afterwards for a short period of time. She produces yellow-grayish sputum when she coughs. Her also had the similar symptoms but he took NyQuil last night and is feeling much better today. [facility] and were around a lot of other people. She tested negative for COVID. She is on immunosuppressants. Cough Associated symptoms include ear pain (Pressure) and a sore throat. Pertinent negatives include no shortness of breath or wheezing. Sore Throat Associated symptoms include congestion, coughing and ear pain (Pressure). Pertinent negatives include no shortness of breath or stridor. The following portions of the patient's history were reviewed and updated as appropriate: allergies, current medications, past family history, past medical history, past social history, past surgical history, problem list, and medication reconciliation was completed including current medication and post discharge medication. Review of Systems HENT: Positive for congestion, ear pain (Pressure), sinus pressure and sore throat. Respiratory: Positive for cough. Negative for shortness of breath, wheezing and stridor. Cardiovascular: Negative. Objective Physical Exam Vitals reviewed. Exam conducted with a materials mgmt tech present (Hakeem Yee MS III). Constitutional: General: She is not in acute distress. Appearance: Normal appearance. She is not ill-appearing. HENT: Head: Normocephalic and atraumatic. Right Ear: Ear canal and external ear normal. Tympanic membrane is scarred. Left Ear: Ear canal and external ear normal. Tympanic membrane is scarred. Ears: Comments: TMs an injection some scarring but no other sign of infection Nose: Congestion and rhinorrhea present. Rhinorrhea is clear. Mouth/Throat: Lips: [place]. Mouth: Mucous membranes are moist. Pharynx: Posterior oropharyngeal erythema present. No pharyngeal swelling or oropharyngeal exudate. Tonsils: No tonsillar exudate or tonsillar abscesses. Eyes: General: No scleral icterus. Extraocular Movements: Extraocular movements intact. Conjunctiva/sclera: Conjunctivae normal. Cardiovascular: Rate and Rhythm: Normal rate and regular rhythm. Heart sounds: Normal heart sounds. No murmur heard. Pulmonary: Effort: Pulmonary effort is normal. No respiratory distress. Breath sounds: Normal breath sounds. No wheezing, rhonchi or rales. Musculoskeletal: Cervical back: Neck supple. Right lower leg: No edema. Left lower leg: No edema. Lymphadenopathy: Cervical: No cervical adenopathy. Neurological: General: No focal deficit present. Mental Status: She is alert and oriented to person, place, and time. Psychiatric: Mood and Affect: Mood normal. Behavior: Behavior is cooperative. Assessment/Plan Jesus was seen today for cough and sore throat. Diagnoses and all orders for this visit: Upper respiratory tract infection, unspecified type Likely viral etiology. She is not acutely ill. We will treat symptoms with fluticasone nasal spray and a Medrol Dosepak. Pharyngitis, unspecified etiology - POCT rapid strep A Negative. Very unlikely to be strep. Other orders - fluticasone propionate (FLONASE) 50 mcg/actuation nasal spray; Administer 2 sprays into each nostril in the morning. - methylPREDNISolone (MEDROL, CELESTE,) 4 mg tablet; Take 1 tablet (4 mg total) by mouth in the morning. follow package directions. documented in this encounter [facility] 06-30-2024 History of Present illness Narrative Subjective Patient ID: Jesus Wolf is a 69 y.o. female. Jesus presents today for general recheck. Her left upper arm pain and swelling is better. Her veins are prominent though. She sees the film editor supervisor next month. She is back in atrial fibrillation. She is taking her Eliquis. She did have a Watchman procedure though and was hoping to get off the Eliquis. Her right knee continues to cause pain. She is taking Celebrex. She is aware of the bleeding and renal risks. The environmental communications specialist told her it was bone on bone but wants her to lose 30 lb before they will replace it. She is struggling with her weight. Her son is taking Wegovy and it is helping him. She is wondering if she could take something like that. She did have a cortisone injection and can have those every 3 months but would like to have her knee replaced eventually She sees her monument setter helper. She had her kidneys checked recently and the function did improve.. Follow-up The following portions of the patient's history were reviewed and updated as appropriate: allergies, current medications, past family history, past medical history, past social history, past surgical history, problem list, and medication reconciliation was completed including current medication and post discharge medication. Review of Systems Constitutional: Negative. Respiratory: Negative. Objective Physical Exam Vitals reviewed. Exam conducted with a materials mgmt tech present (Hakeem Yee MS III). Constitutional: General: She is not in acute distress. Appearance: She is morbidly obese. HENT: Head: Normocephalic. Eyes: General: No scleral icterus. Extraocular Movements: Extraocular movements intact. Conjunctiva/sclera: Conjunctivae normal. Cardiovascular: Rate and Rhythm: Normal rate and regular rhythm. Pulses: Normal pulses. Heart sounds: Normal heart sounds. No murmur heard. Comments: Dilated veins left upper extremity Pulmonary: Effort: Pulmonary effort is normal. No respiratory distress. Breath sounds: No wheezing, rhonchi or rales. Abdominal: General: Bowel sounds are normal. Palpations: Abdomen is soft. Musculoskeletal: General: Swelling (Mild left upper extremity) present. Cervical back: Neck supple. Lymphadenopathy: Cervical: No cervical adenopathy. Neurological: General: No focal deficit present. Mental Status: She is alert and oriented to person, place, and time. Psychiatric: Attention and Perception: Attention normal. Mood and Affect: Mood and affect normal. Speech: Speech normal. Behavior: Behavior normal. Behavior is cooperative. Thought Content: Thought content normal. Cognition and Memory: Cognition normal. Judgment: Judgment normal. Assessment/Plan Jesus was seen today for follow-up. Diagnoses and all orders for this visit: Acute deep vein thrombosis (DVT) of brachial vein of left upper extremity ([facility]) Stay on Eliquis for now. Pathophysiology of DVTs discussed. Will defer to Cardiology to see if she needs to stay on anticoagulation nursing home or if she needs further imaging. Post phlebitic syndrome discussed and she may need to see vascular. Paroxysmal atrial fibrillation ([facility]) She seems to be in sinus rhythm right now. Continue current regimen. Follow up with cardiology as directed. Stage 3a chronic kidney disease ([facility]) Last GFR improved significantly to 59. That is stage IIIA chronic kidney disease. Follow up with Nephrology as directed. Localized osteoarthritis of right knee She needs to lose 30 lb before she can get a knee replacement. Continue with cortisone injections for now. We will focus on her weight loss. Morbid obesity We discussed risks and benefits of medications for weight loss. She would like to try Wegovy. Diet exercise and weight loss discussed. She needs to lose 5% of her body weight after she is on maximally tolerated dose of Wegovy for 12 weeks. Other orders - semaglutide, weight loss, (WEGOVY) 0.25 mg/0.5 mL pen injector; Inject 0.5 mL (0.25 mg total) under the skin once a week. documented in this encounter [facility] 06-14-2024 Note HNO ID: [id number] Author: COCO GUZMAN RN Service: ? Author Type: Registered Nurse Type: Progress Notes Filed: 06/14/2024 12:46 Note Text: Since your last infusion, have you: Had any major change in your health (including new diagnosis of cancer, COPD or cogestive heart failure? No Been hospitalized? No Had any infections? No Taking antibiotics/antivirals/antifungal s for current infection? No Had surgery or [...] rash or open sores? No [facility] 06-14-2024 History of Present illness Narrative Since your last infusion, have you: Had any major change in your health (including new diagnosis of cancer, COPD or cogestive heart failure? No Been hospitalized? No Had any infections? No Taking antibiotics/antivirals/antifungal s for current infection? No Had surgery or [...] open sores? No documented in this encounter [facility] 06-13-2024 Telephone encounter Note Confirmed patient will be here for infusion and is infection free. [facility] 06-13-2024 Miscellaneous Notes Confirmed patient will be here for infusion and is infection free. documented in this encounter [facility] 05-20-2024 Note HNO ID: [id number] Author: MARY MORALES MD Service: ? Author Type: Physician Type: Progress Notes Filed: 05/20/2024 10:30 Note Text: This document has been created with the use of voice recognition technology. It may contain inaccuracies: misspellings, inaccurate syntax or word sense that escaped review. The patient is seen at the request of self for evaluation and an opinion regarding treatment. A copy of this report will remain in the shared medical record CHIEF COMPLAINT: Jesus Wolf is a 69 year old female who presents today for new evaluation of left knee pain. HISTORY OF PRESENT ILLNESS: PAIN EVALUATION 05/20/2024 0735 05/20/2024 0927 Pain Level: 7 8 Pain Location: -- Knee-Left Description: Aching;Cutting;Sharp Sharp Duration Amount of Time: -- 5 Duration Units: Weeks Months Frequency: Intermittent Intermittent Intervention/Comfort measure: Reposition;Massage;Positioning Reposition;Relaxation;Positioning ;Medication tylenol, voltaren gel HISTORY: Jesus Wolf has complains of left knee pain for under 6 months. She states there is no injury that occurred. The knee pain is anterior and medial. History of right total hip replacement. Significant past medical history with fibromyalgia, A-fib on Eliquis, lupus and RA on Plaquenil and Benlysta fusions every 2 months. No previous surgery on the knee and no previous orthopedic care. 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 No other musculoskeletal complaints ROS: REVIEW OF SYSTEMS: Constitutional: patient denies any recent fever or significant change in weight Cardiovascular: patient denies any chest pain at rest Respiratory: patient denies any shortness of breath or cough Gastrointestinal: patient denies any current abdominal discomfort Integumentary: patient denies any recent skin changes Musculoskeletal: as noted in the HPI Neurologic: as noted in the HPI Endocrine: patient denies a current diagnosis of diabetes Hematologic/Lymphatic: On DOAC Psychologic: negative for any recent depression or anxiety issues SOCIAL HISTORY: Tobacco Use: Never FAMILY HISTORY: FAMILY HISTORY Problem Relation Age of Onset Alzheimer's Disease Father Hypertension Father Cataract Mother Hypertension Mother Colon Cancer Mother Cataract Sister Hypertension Sister Colon Cancer Paternal Uncle ALLERGIES: ALLERGIES Allergen Reactions Dofetilide Other: See [...] spot in area of shot PAST MEDICAL HISTORY: PAST MEDICAL HISTORY Diagnosis Date Arrhythmia Atrial fibrillation (HCC) on coumadin Herniated intervertebral disk HTN (hypertension) Hyperlipemia Kidney disease MONI (obstructive sleep apnea) no longer using CPAP since 60 lb weight loss Other acute pancreatitis with uninfected necrosis SLE (systemic lupus erythematosus) ([facility]) Sleep apnea 07/29/2012 SOCIAL HISTORY: Tobacco Use: Never EXAMINATION: GENERAL: Appears healthy, well-nourished, no deformities. ORIENTATION: Alert and oriented to person place and time HABITUS: Normal GAIT: Antalgic to the left left knee exam: Chronic venous stasis skin changes bilaterally no effusion Varus alignment with partial correction Active 0 extension, flexion 120. central patellar tracking/mild to moderate patellofemoral crepitation Global knee pain most profound medially and patellofemoral stable to varus and valgus stresses. stable Anterior/posterior drawer. No pain with palpation of pes anserine bursa Calf soft and nontender. Hip exam- negative log roll, preserved ER/IR, no pain with axial loading NV intact L3-S1 with 2+ DP pulse. Obvious left foot arthritic deformity right knee exam: no effusion Neutral Alignment Active 0 extension, flexion 120. central patellar tracking/ no patellofemoral crepitation No Pain with patellar compression, no Pain with palpating medial compartment, no Pain with palpating lateral compartment. stable to varus and valgus stresses. Kelin is negative stable Anterior/posterior drawer. negative McMurrays No pain with palpation of pes anserine bursa Calf soft and nontender. RADIOGRAPHS: XR left knee obtained today and personally reviewed by myself demonstrating severe medial compartment arthritis and mild to moderate patellofemoral and lateral compartment arthritis, IMPRESSION: Encounter Diagnosis ICD-10-CM (more content not included)... [facility] 05-20-2024 History of Present illness Narrative Associated Order(s): Large Joint Arthro/Inj: L knee joint Post-Procedure Diagnose(s): Arthritis of left knee; Primary osteoarthritis of left knee; Left knee pain, unspecified chronicity Images from the original note were not included. This document has been created with the use of voice recognition technology. It may contain inaccuracies: misspellings, inaccurate syntax or word sense that escaped review. The patient is seen at the request of self for evaluation and an opinion regarding treatment. A copy of this report will remain in the shared medical record CHIEF COMPLAINT: Jesus Wolf is a 69 year old female who presents today for new evaluation of left knee pain. HISTORY OF PRESENT ILLNESS: PAIN EVALUATION 05/20/2024 0735 05/20/2024 0927 Pain Level: 7 8 Pain Location: -- Knee-Left Description: Aching;Cutting;Sharp Sharp Duration Amount of Time: -- 5 Duration Units: Weeks Months Frequency: Intermittent Intermittent Intervention/Comfort measure: Reposition;Massage;Positioning Reposition;Relaxation;Positioning ;Medication tylenol, voltaren gel HISTORY: Jesus Wolf has complains of left knee pain for under 6 months. She states there is no injury that occurred. The knee pain is anterior and medial. History of right total hip replacement. Significant past medical history with fibromyalgia, A-fib on Eliquis, lupus and RA on Plaquenil and Benlysta fusions every 2 months. No previous surgery on the knee and no previous orthopedic care. 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 No other musculoskeletal complaints ROS: REVIEW OF SYSTEMS: Constitutional: patient denies any recent fever or significant change in weight Cardiovascular: patient denies any chest pain at rest Respiratory: patient denies any shortness of breath or cough Gastrointestinal: patient denies any current abdominal discomfort Integumentary: patient denies any recent skin changes Musculoskeletal: as noted in the HPI Neurologic: as noted in the HPI Endocrine: patient denies a current diagnosis of diabetes Hematologic/Lymphatic: On DOAC Psychologic: negative for any recent depression or anxiety issues SOCIAL HISTORY: Tobacco Use: Never FAMILY HISTORY: FAMILY HISTORY Problem Relation Age of Onset Alzheimer's Disease Father Hypertension Father Cataract Mother Hypertension Mother Colon Cancer Mother Cataract Sister Hypertension Sister Colon Cancer Paternal Uncle ALLERGIES: ALLERGIES Allergen Reactions Dofetilide Other: See [...] spot in area of shot PAST MEDICAL HISTORY: PAST MEDICAL HISTORY Diagnosis Date Arrhythmia Atrial fibrillation (HCC) on coumadin Herniated intervertebral disk HTN (hypertension) Hyperlipemia Kidney disease MONI (obstructive sleep apnea) no longer using CPAP since 60 lb weight loss Other acute pancreatitis with uninfected necrosis SLE (systemic lupus erythematosus) ([facility]) Sleep apnea 07/29/2012 SOCIAL HISTORY: Tobacco Use: Never EXAMINATION: GENERAL: Appears healthy, well-nourished, no deformities. ORIENTATION: Alert and oriented to person place and time HABITUS: Normal GAIT: Antalgic to the left left knee exam: Chronic venous stasis skin changes bilaterally no effusion Varus alignment with partial correction Active 0 extension, flexion 120. central patellar tracking/mild to moderate patellofemoral crepitation Global knee pain most profound medially and patellofemoral stable to varus and valgus stresses. stable Anterior/posterior drawer. No pain with palpation of pes anserine bursa Calf soft and nontender. Hip exam- negative log roll, preserved ER/IR, no pain with axial loading NV intact L3-S1 with 2+ DP pulse. Obvious left foot arthritic deformity right knee exam: no effusion Neutral Alignment Active 0 extension, flexion 120. central patellar tracking/ no patellofemoral crepitation No Pain with patellar compression, no Pain with palpating medial compartment, no Pain with palpating lateral compartment. stable to varus and valgus stresses. Kelin is negative stable Anterior/posterior drawer. negative McMurrays No pain with palpation of pes anserine bursa Calf soft and nontender. RADIOGRAPHS: XR left knee obtained today and personally reviewed by myself demonstrating severe medial compartment arthritis and mild to moderate patellofemoral and lateral compartment arthritis, IMPRESSION: Encounter Diagnosis ICD-10-CM 1. Arthritis of left knee M17.12 2. Left knee pain, unspecified chronicity M25.562 XR KNEE SPECIFY 1V LEFT Large Joint Arthro/Inj: L knee joint Informed Consent Consent Obtained: Written [place] Protocol A moment to CARE was completed. SIGN IN Personnel directly involved with the procedure wore the appropriate PPE. Special Equipment: N/A Patient/Surrogate Stated/Verified: Patient name, Date of , Relevant allergies and Intended procedure TIME OUT Intended patient and procedure match the source document(s). Consent documented and matches the intended procedure. Relevant labs, photos, and/or imaging studies have been reviewed. Correct side/site marked and visible. Medications required for procedure verified. No fire risk assessment and interventions applicable. No implant(s) inserted. 05/20/2024 10:28 AM The procedure site was prepped in the usual sterile fashion. Site: L knee joint Medications: 40 mg triamcinolone acetonide 40 mg/mL Anesthetics: 4 mL lidocaine (PF) 10 mg/mL (1 %) Outcome: Tolerated well, no immediate complications Post-injection instructions were reviewed with the patient and the patient voiced understanding of these instructions. SIGN OUT No specimen collected. No instruments, equipment or retained foreign bodies applicable. Post-procedure follow-up management communicated and Plan of Care Visit completed when applicable Plan: Patient with complex past medical history RA, lupus, cardiovascular disease, fibromyalgia presents with arthritis of the left knee. We discussed her x-rays at length with her. There is significant degenerative change. She receives care through her psych therapist consistently. She is also receiving treatments for osteoporosis. We discussed treatment for arthritis of the knee, such as a cortisone injection. Due to her significant pain she was interested in this procedure today. Injection was given with good tolerance. Discussed appropriate intervals between injections. Discussed surgical implications which would entail total knee replacement, she is not ready to consider this. Will follow-up in a couple months to assess response from the injection. Alfredo Norwood PA-C I have personally performed face to face diagnostic evaluation on this patient. I have examined the patient and reviewed radiographic studies and agree with plan as outlined above. Warmed substantial part of today's visit and MDM. Patient with severe left knee osteoarthritis. Has multiple significant comorbidities including morbid obesity. Discussed surgical treatment and indications. Discussed implications of her comorbidities. We injected her knee today with cortisone. Will follow-up in 3 months Mary Morales MD May 20, 2024 10:27 AM documented in this encounter [facility] 05-20-2024 Note HNO ID: [id number] Author: DONY BEAN RT(Sandra) Service: ? Author Type: Technologist Type: Progress Notes Filed: 05/20/2024 09:24 Note Text: Radiology Service Progress Note PATIENT NAME: Jesus Wolf DATE OF SERVICE: May 20, 2024 TIME: 9:23 AM PATIENT IDENTITY VERIFICATION COMPLETED USING TWO (2) IDENTIFIERS: Name and Date of confirmed by patient verbally. FALL SCREENING: Has the patient had 2 falls in the last year or 1 fall with injury or currently using an Ambulatory Assistive Device (Walker, Cane, Wheelchair, Crutches, etc.)? No PATIENT GENDER DATA: Female. status: : No status: NO. PATIENT RELEVANT IMPLANT DATA REVIEWED: Not Applicable PATIENT PRESENTS WITH AN IMPLANTABLE OR ATTACHED MINESWEEPING OFFICER: No RADIOLOGY DEPARTMENT: General X-ray: Exam(s) Completed: Lower Extremity X-Ray(s): Knee, AP Only Left PERIPHERAL IV DATA: Not applicable SIGNED BY: RT Nandini(R) May 20, 2024 9:23 AM [facility] 05-20-2024 History of Present illness Narrative Radiology Service Progress Note PATIENT NAME: Jesus Wolf DATE OF SERVICE: May 20, 2024 TIME: 9:23 AM PATIENT IDENTITY VERIFICATION COMPLETED USING TWO (2) IDENTIFIERS: Name and Date of confirmed by patient verbally. FALL SCREENING: Has the patient had 2 falls in the last year or 1 fall with injury or currently using an Ambulatory Assistive Device (Walker, Cane, Wheelchair, Crutches, etc.)? No PATIENT GENDER DATA: Female. status: : No status: NO. PATIENT RELEVANT IMPLANT DATA REVIEWED: Not Applicable PATIENT PRESENTS WITH AN IMPLANTABLE OR ATTACHED MINESWEEPING OFFICER: No RADIOLOGY DEPARTMENT: General X-ray: Exam(s) Completed: Lower Extremity X-Ray(s): Knee, AP Only Left PERIPHERAL IV DATA: Not applicable SIGNED BY: RT Nandini(R) May 20, 2024 9:23 AM documented in this encounter [facility] 05-19-2024 History of Present illness Narrative Subjective Patient ID: Jesus Wolf is a 69 y.o. female. Jesus presents for recheck of her left arm DVT. She is taking Eliquis and not having any side effects. Her left arm is still swollen. It really isn't any better. She is seeing ortho tomorrow about her right knee pain. She has bone on bone and will likely need a knee replacement. She was given a topical agent and she wants to know if she can take it with her other medications. She is using celecoxib 200 mg BID with benefit. She is not having any side effects. The following portions of the patient's history were reviewed and updated as appropriate: allergies, current medications, past family history, past medical history, past social history, past surgical history, problem list, and medication reconciliation was completed including current medication and post discharge medication. Review of Systems Objective Physical Exam Vitals reviewed. Constitutional: General: She is not in acute distress. HENT: Head: Normocephalic. Eyes: Extraocular Movements: Extraocular movements intact. Conjunctiva/sclera: Conjunctivae normal. Cardiovascular: Rate and Rhythm: Normal rate and regular rhythm. Pulses: Normal pulses. Heart sounds: Normal heart sounds. No murmur heard. Comments: Dilated veins in LUE Pulmonary: Effort: Pulmonary effort is normal. No respiratory distress. Breath sounds: Normal breath sounds. No wheezing, rhonchi or rales. Musculoskeletal: General: Swelling (LUE) present. Cervical back: Neck supple. Neurological: General: No focal deficit present. Mental Status: She is alert and oriented to person, place, and time. Psychiatric: Attention and Perception: Attention and perception normal. Mood and Affect: Mood and affect normal. Speech: Speech normal. Behavior: Behavior normal. Behavior is cooperative. Thought Content: Thought content normal. Cognition and Memory: Cognition and memory normal. Judgment: Judgment normal. Assessment/Plan Jesus was seen today for follow-up. Diagnoses and all orders for this visit: Acute deep vein thrombosis (DVT) of brachial vein of left upper extremity (CMS-HCC) Localized osteoarthritis of right knee F/U with ortho. Celebrex risks discussed including GI bleeding. She is deriving benefit and does not want to stop. She feels benefit outweighs the risk. Ok to use topical agents.will likely need knee replaced. It is affecting her quality of life. Essential hypertension Blood pressure at goal. Continue current regimen Obesity, morbid (CMS-HCC) She is obese. She would benefit from wt loss. Need for immunization against influenza - Influenza, Trivalent, Adjuvanted she agrees to high dose flu vaccine documented in this encounter [facility] 05-18-2024 History of Present illness Narrative Images from the original note were not included. [facility] DEPARTMENT OF RHEUMATIC AND IMMUNOLOGIC DISEASES SUBJECTIVE: Reason for visit: SLE Brief History of Present Illness: Jesus Wolf is a 69 year old female with HTN, HLD, HFpEF, [...] 1500 mg daily because of recurrent URI March 2020 admitted with CHF A. fib [...] Had morning stiffness which lasts 15-20 minutes. 01/2023 mycophenolate mofetil was stopped. 12/2023: She is able to tell when due for BEL every 3 months, has increased fatigue prior to her infusions. Today she is even worst on month 3 with increased joint pain and worsening fatigue. She notably gets 60 mg IVMP with her infusions due to eye swelling that happened when she was first infused. At that time BEL was increased to every 2 month infusions. She feels well on this regimen. An tell when she is due for her infusions based on increased aches and fatigue. Considering left knee replacement based on severe osteoarthritis on XR. Current Medications: HCQ 400 mg once daily Belimumab infusions every 2 months with 40 mg IVMP PMHx: PAST MEDICAL HISTORY Diagnosis Date Arrhythmia Atrial fibrillation (HCC) on coumadin Herniated intervertebral disk HTN (hypertension) Hyperlipemia Kidney disease MONI (obstructive sleep apnea) no longer using CPAP since 60 lb weight loss Other acute pancreatitis with uninfected necrosis SLE (systemic lupus erythematosus) (HCC) Sleep apnea 07/29/2012 PSHx: PAST SURGICAL HISTORY Procedure Laterality Date APPENDECTOMY CARPAL TUNNEL RIGHT WRIST surgical correction COLONOSCOPY 05/10/2019 [facility] COLONOSCOPY GEN ANES 07/23/2020 Dr. Frances/Diverticulosis/Hemorrhoids/ Ulcerative Colitis/Rpt in 2 yrs. COLONOSCOPY SCREENING 03/2023 EGD EUS 01/11/2020 [facility] LASIK Right prior to 1999 MRI PANC/JEANIE WO/W IVCON 12/20/2019 OVARIAN CYSTECTOMY PAST SURGICAL HISTORY OF 07/2013 bilateral foot procedure, [place] PAST SURGICAL HISTORY OF Ablation X2 TONSILLECTOMY HX MEDICATIONS: alendronate (FOSAMAX) 70 mg tablet Take 1 tablet by mouth one time a week. In the morning with a full glass of water, on an empty stomach. Do not take anything else by mouth or lie down for the next 30 minutes. hydrOXYchloroQUINE (PLAQUENIL) 200 mg tablet take 1 tablet by mouth twice a day with food Mesalamine (LIALDA) 1.2 gram EC tablet Take 4 tablets by mouth once daily. pantoprazole DR (PROTONIX) 40 mg tablet Take 1 tablet by mouth twice daily colestipol (COLESTID) 1 gram tablet Take 3 tablets by mouth two times a day. ferrous sulfate (IRON) 325 mg (65 mg iron) tablet Take 1 tablet by mouth once daily. amiodarone (PACERONE) 200 mg tablet Take 1 tablet by mouth [...] in the MR contrast administration guidelines link. metoprolol succinate ER (TOPROL XL) 50 mg 24 hr tablet TAKE 1 TABLET BY MOUTH IN THE MORNING AND 2 TABLETS BY MOUTH IN THE EVENING ELIQUIS 5 mg tab(s) Take 5 mg by mouth twice daily. acetaminophen (TYLENOL) 500 mg tablet Take 1 tablet by mouth every 4 hours as needed for pain. xktkqag-evfjgnqru-kknuvvb D3 500 mg-5 mcg (200 unit) per tablet Take 1 tablet by mouth three times daily. MV with Qfb-Ebnvlbpk-Fpiwce (CENTRUM SILVER) 0.4 mg-300 mcg- 250 mcg [...] 10 mg by mouth daily at bedtime. Cholecalciferol, Vitamin D3, 2,000 unit cap Take by mouth once daily. vitamin b complex(B COMPLEX TAB) one daily multivitamins w-minerals/lut(CENTRUM SILVER TAB) Take one(1) tablet daily. diclofenac (VOLTAREN ARTHRITIS PAIN) 1 % topical gel Apply 4 g to affected area four times daily. amoxicillin (AMOXIL) 500 mg capsule Take 4 tablets one hour prior to dental procedure (Patient not taking: Reported on 10/13/2023) ALLERGIES: ALLERGIES Allergen Reactions Dofetilide Other: See [...] of shot OBJECTIVE: Physical Examination: Vitals: BP 131/63 Pulse 70 Temp 36.1 C (97 F) (Temporal) Wt 120.3 kg (265 lb 3.4 oz) LMP 07/17/2011 (Within Years) BMI 43.46 kg/m General: Looks well, NAD, A & Ox3. HEENT: +corey cheeks. Neck: No LAD. CVS: RRR, nl S1/S2, no R/M/G, Ext: No edema. Neuro: Gait Normal. Skin: No rash. No ulcers. Musculoskeletal: Shoulders: No swelling, no tenderness, good ROM Elbows: No swelling, no tenderness, no flexion contractures, no nodules, good ROM Wrists: No swelling, no tenderness, no limitation in flexion and extension Hands: No evidence of synovitis. There is +TTP of MCPs L>R Knees: No effusion, +swelling of left knee. Ankles: No swelling, no tenderness, good ROM IMPRESSIONS/RECOMMENDATIONS: Systemic Lupus Erythematosus 2019 ACR/EULAR classification criteria: PARVEZ, +dsDNA antibodies with membranous lupus nephritis. Clinical symptoms of photosensitivity with malar rash and arthralgia. She is in renal remission and no longer warrants MMF as of 01/2023. We will continue HCQ 5 mg/kg/day dosing and belimumab 10 mg/kg iv infusions every 2 months with 40 mg IVMP. We have discussed the risks and toxicities associated with the use of these medications and the appropriate lab monitoring. We will obtain labs today with CK level. 2. 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 I have prescribed for her a course of Voltaren Gel 1% for her to use four times/daily. Health Maintenance: Vaccinations: Prevnar 20 given 01/2023. She is otherwise up to date with all vaccines. Advised COVID booster this fall. Bone Health: Seeing metabolic Bone. HCQ monitorin10/2023 scanned into system. RTC 6 months. Nadege Murphy D.O. Rheumatology Staff documented in this encounter [facility] 05-18-2024 Note HNO ID: [id number] Author: NADEGE MURPHY DO Service: ? Author Type: Physician Type: Progress Notes Filed: 05/18/2024 15:13 Note Text: [facility] DEPARTMENT OF RHEUMATIC AND IMMUNOLOGIC DISEASES SUBJECTIVE: Reason for visit: SLE Brief History of Present Illness: Jesus Wolf is a 69 year old female with HTN, HLD, HFpEF, [...] 1500 mg daily because of recurrent URI March 2020 admitted with CHF A. fib [...] Had morning stiffness which lasts 15-20 minutes. 01/2023 mycophenolate mofetil was stopped. 12/2023: She is able to tell when due for BEL every 3 months, has increased fatigue prior to her infusions. Today she is even worst on month 3 with increased joint pain and worsening fatigue. She notably gets 60 mg IVMP with her infusions due to eye swelling that happened when she was first infused. At that time BEL was increased to every 2 month infusions. She feels well on this regimen. An tell when she is due for her infusions based on increased aches and fatigue. Considering left knee replacement based on severe osteoarthritis on XR. Current Medications: HCQ 400 mg once daily Belimumab infusions every 2 months with 40 mg IVMP PMHx: PAST MEDICAL HISTORY Diagnosis Date Arrhythmia Atrial fibrillation (HCC) on coumadin Herniated intervertebral disk HTN (hypertension) Hyperlipemia Kidney disease MONI (obstructive sleep apnea) no longer using CPAP since 60 lb weight loss Other acute pancreatitis with uninfected necrosis SLE (systemic lupus erythematosus) (HCC) Sleep apnea 07/29/2012 PSHx: PAST SURGICAL HISTORY Procedure Laterality Date APPENDECTOMY CARPAL TUNNEL RIGHT WRIST surgical correction COLONOSCOPY 05/10/2019 [facility] COLONOSCOPY GEN ANES 07/23/2020 Dr. Frances/Diverticulosis/Hemorrhoids/ Ulcerative Colitis/Rpt in 2 yrs. COLONOSCOPY SCREENING 03/2023 EGD EUS 01/11/2020 [facility] LASIK Right prior to 1999 MRI PANC/JEANIE WO/W IVCON 12/20/2019 OVARIAN CYSTECTOMY PAST SURGICAL HISTORY OF 07/2013 bilateral foot procedure, [place] PAST SURGICAL HISTORY OF Ablation X2 TONSILLECTOMY HX MEDICATIONS: alendronate (FOSAMAX) 70 mg tablet Take 1 tablet by mouth one time a week. In the morning with a full glass of water, on an empty stomach. Do not take anything else by mouth or lie down for the next 30 minutes. hydrOXYchloroQUINE (PLAQUENIL) 200 mg tablet take 1 tablet by mouth twice a day with food Mesalamine (LIALDA) 1.2 gram EC tablet Take 4 tablets by mouth once daily (more content not included)... [facility] 05-16-2024 History of Present illness Narrative Subjective Jesus Wolf is a 69 y.o. female. Chief Complaint: Follow-up and Atrial Fibrillation 68 year old female presents today for 4 month follow up post Afib Ablation and 1 month post Watchman implant. PMH includes: MONI, Systemic lupus, in remission, on medical therapy with hydroxychloroquine, morbid obesity, hyperlipidemia, HTN, History of hypercalcemia caused by hyperparathyroidism status post parathyroidectomy last year at the [facility] with success, Ascending aortic aneurysm measured 4.6 cm from echocardiogram September 2021, follow-up echocardiogram in 2021 measured only 3.8 cm, A-fib treatment history: The initial diagnosis date of atrial fibrillation (A-fib) is uncertain, though it has been recognized since at least 2017. The patient has persistent A-fib and atypical atrial flutter, with previous cardioversions unsuccessful. She underwent a pulmonary vein isolation (PVI) with additional lesions in May 2019 and an atypical atrial flutter ablation in August 2019. Medications tried include Tikosyn (discontinued due to ventricular tachycardia), Amiodarone (following A-fib ablation). She was noted to be back in A-flutter 09/17/23 and started on Flecainide 100mg twice daily, and Metoprolol 150mg daily. Cardioversion was scheduled, but she reverted back to NSR spontaneously. She uses a Enertiv mobile device and states she is going in and out of rhythm more often. Flecainide was increased to 150mg BID on 10/29/23. Symptoms during atrial fibrillation episodes include fatigue, palpitations, and shortness of breath. Flecainide was changed back to Amiodarone Now s/p Afib RFA with Dr. Chino 01/05/2024 ECG 02/15/2024 NSR HR 69 bpm S/P Watchman implant 04/07/[address] Chino ECG 05/16/2024 NSR HR 65 bpm TODAY patient presents for 1 month follow up post Watchman implant. She is doing well and denies any complications from the procedure. She denies any chest pain, SOB, dizziness, palpitations, and syncope. BP 119/71 (BP Location: Left arm, Patient Position: Sitting, BP Cuff Size: Large adult) Pulse 67 Ht 1.702 m (5' 7 ) Wt 120 kg (264 lb 8 oz) SpO2 91% BMI 41.43 kg/m Current Outpatient Medications on File Prior to Visit Medication Sig Dispense Refill alendronate (Fosamax) 70 mg tablet Take 1 tablet (70 mg) by mouth every 7 days. On Thursday. Take in the morning with a full glass of water, on an empty stomach, and do not take anything else by mouth or lie down for the next 30 min. amiodarone (Pacerone) 200 mg tablet Take 1 tablet (200 mg) by mouth once daily. Do not start before November 24, 2023. 30 tablet 5 atorvastatin (Lipitor) 40 mg tablet Take 1 tablet (40 mg) by mouth once daily. 90 tablet 3 belimumab (Benlysta) 120 mg recon soln IV injection Infuse into a venous catheter every 8 (eight) weeks. Bifidobacterium infantis (ALIGN ORAL) Take 1 tablet by mouth once daily. busPIRone (Buspar) 5 mg tablet celecoxib (CeleBREX) 200 mg capsule Take 1 capsule (200 mg) by mouth 2 times a day. cholecalciferol (Vitamin D-3) 50 mcg (2,000 unit) capsule Take 3 capsules (150 mcg) by mouth once daily. colestipol (Colestid) 1 gram tablet Take 3 tablets (3 g) by mouth 2 times a day. Take at least 1 hour after or 4 hours before other medications. Eliquis 5 mg tablet Take 1 tablet by mouth twice daily 60 tablet 0 ferrous sulfate 325 (65 Fe) MG tablet Take 1 tablet (325 mg) by mouth once daily with breakfast. furosemide (Lasix) 20 mg tablet Take 2 tablets (40 mg) by mouth once daily. hydroxychloroquine (Plaquenil) 200 mg tablet Take 1 tablet (200 mg) by mouth 2 times a day. levothyroxine (Synthroid, Levoxyl) 50 mcg tablet Take 1 tablet (50 mcg) by mouth once daily in the morning. Take before meals. mesalamine (Lialda) 1.2 gram EC tablet Take 2 tablets (2.4 g) by mouth 2 times a day. metoprolol succinate XL (Toprol-XL) 50 mg 24 hr tablet Take 1 tablet (50 mg) by mouth see administration instructions. Take one tablet by mouth every morning and 2 tablets by mouth every evening 270 tablet 3 multivitamin with minerals iron-free (Centrum Silver) Take 1 tablet by mouth once daily. pantoprazole (ProtoNix) 40 mg EC tablet Take 1 tablet (40 mg) by mouth 2 times a day. Do not crush, chew, or split. spironolactone (Aldactone) 50 mg tablet Take 1 tablet (50 mg) by mouth once daily in the morning. Take before meals. venlafaxine XR (Effexor-XR) 150 mg 24 hr capsule Take 1 capsule (150 mg) by mouth once daily. Do not crush or chew. [DISCONTINUED] aspirin 81 mg EC tablet Take 1 tablet (81 mg) by mouth once daily. (Patient not taking: Reported on 05/16/2024) 30 tablet 11 [DISCONTINUED] clopidogrel (Plavix) 75 mg tablet Take 1 tablet (75 mg) by mouth once daily. (Patient not taking: Reported on 05/16/2024) 30 tablet 6 No current facility-administered medications on file prior to visit. Review of Systems Constitutional: Negative for diaphoresis, fever and malaise/fatigue. HENT: Negative for congestion and sore throat. Eyes: Negative for blurred vision and double vision. Cardiovascular: Negative for chest pain, dyspnea on exertion, irregular heartbeat, leg swelling, near-syncope, orthopnea, palpitations, paroxysmal nocturnal dyspnea and syncope. Respiratory: Negative for cough, hemoptysis, shortness of breath, snoring and sputum production. Hematologic/Lymphatic: Negative for bleeding problem. Skin: Negative for rash. Musculoskeletal: Negative for falls, joint pain and myalgias. Gastrointestinal: Negative for abdominal pain, diarrhea, nausea and vomiting. Neurological: Negative for dizziness, headaches, light-headedness and weakness. All other systems reviewed and are negative. Objective Constitutional: Appearance: Healthy appearance. Not in distress. Eyes: Conjunctiva/sclera: Conjunctivae normal. Pupils: Pupils are equal, round, and reactive to light. HENT: Mouth/Throat: Pharynx: Oropharynx is clear. Pulmonary: Effort: Pulmonary effort is normal. Breath sounds: Normal breath sounds. No wheezing. No rhonchi. No rales. Cardiovascular: PMI at left midclavicular line. Normal rate. Regular rhythm. Murmurs: There is no murmur. No gallop. Pulses: Intact distal pulses. Edema: Peripheral edema absent. Abdominal: General: Bowel sounds are normal. Palpations: Abdomen is soft. Tenderness: There is no abdominal tenderness. Musculoskeletal: Normal range of motion. General: No tenderness. Skin: General: Skin is warm and dry. Comments: Right groin puncture site healed Neurological: General: No focal deficit present. Mental Status: Alert and oriented to person, place and time. Lab Review: Lab Results Component Value Date NA 141 01/04/2024 K 4.5 01/04/2024 CL 105 01/04/2024 CO2 29 01/04/2024 BUN 24 (H) 01/04/2024 CREATININE 0.99 01/04/2024 GLUCOSE 90 01/04/2024 CALCIUM 9.6 01/04/2024 Lab Results Component Value Date WBC 6.9 01/04/2024 HGB 14.5 01/04/2024 HCT 43.9 01/04/2024 MCV 97 01/04/2024 PLT 258 01/04/2024 Assessment/Plan The encounter diagnosis was Paroxysmal atrial fibrillation (Multi). Patient is 1 month post watchman and 4 months post A-fib ablation. She denies any complications from the procedures. She is still in normal rhythm and on amiodarone. She is still on Eliquis due to a DVT in her arm. She is following with her PCP regarding that. She will remain on anticoagulation as long as required to treat her DVT. Then she can switch to Plavix/aspirin for 6 months post watchman implant. She will get a repeat CT scan of 4 months post watchman and a phone call if the device is well-seated. Follow-up with Dr. Conway in July, if she is still maintaining normal rhythm without any arrhythmia symptoms she can stop her amiodarone at that time Continue Eliquis per DVT protocol, once she is okay to stop it per this protocol, she can go back to DAPT with Plavix and aspirin Patient can call the office with any questions or concerning symptoms and follow-up with our office as needed documented in this encounter [facility] Work Phone: 05-09-2024 History of Present illness Narrative Physical Therapy Evaluation Visit Patient Name: Jesus Wolf Today's Date: 05/09/2024 Encounter Diagnoses Name Primary? Unilateral primary osteoarthritis, left knee Yes Visit number: 1 Timed Code Treatment Minutes: 46 minutes Total Treatment Time: 46 minutes Time In: 1030 Time Out: 1116 History: Pt has been having left knee pain for quite some time. Had an X-ray in [place] which showed bone on bone OA of left knee. Was seen by PCP who ordered PT. Pt has not been seen by ortho. Precautions: Systemic lupus erythematosus, WATCHMAN device, right CHRISTOPHER Xray: Osteoarthritis left knee, severe in the medial compartment. Subjective: Left knee Pain: 8/10 Objective: PT Evaluation (05/09/2024) Left KNEE AROM: 2 to 99 degrees in supine Joint play: limited tibial femoral mobility due to pain; hypomobility noted left patella MMT: left hip 4-/5, quad 3/5 due to pain Muscle length: Palpation: moderate tenderness medial joint line Special Test: not tested Functional: TUG without device: 31.06 seconds and 31.19 second Treatment: Education: HEP education with demonstration, Educated on Eval Findings and POC Manual Therapy: (10 minutes) Passive ROM, Joint mobilization, Soft Tissue Mobilization, Myofascial Release, Muscle Energy Technique, Neural Mobilization, Myofascial Cupping, Dry Needling, IASTM, and Scar mobilization as needed. Gentle mobs to left knee in sitting with distraction. Therapeutic Exercise: (14 minutes) Strength, Endurance, Flexibility, ROM, HEP, Neural Mobilization, Power, and Core Stability as needed. Pt instructed in and performed ex per sheet. Discussed importance of increase LE strength and benefit of starting NWB due to pain severity. Pt reports good understanding. Therapeutic Activity: Exercises to improve dynamic activities, functional tasks, functional mobility to return to prior activity level as needed. Neuromuscular re-education: Balance Training, Muscle Facilitation, Dynamic Stability, Core Stabilization, and Blood Flow Restriction Training (BFRT) as needed. Modalities: Heat, Ice, Electrical Stimulation, Ultrasound, Iontophoresis, and Fluidotherapy as needed. Declined this date. Assessment: Pt is 69 y/o female with complaints of chronic left knee pain. Xray shows severe OA left knee. Pt ambulates without use of device with moderate antalgic gait; limited left knee flexion during swing phase and lacks terminal knee extension. Decrease ROM and strength of left LE noted. Pt will benefit from PT to address deficits. Outcome Measure: Lower Extremity Functional Scale (LEFS): 16/80 Rehab Diagnosis: left knee pain and weakness; difficulty walking Short Term Goal: To be met in 2 weeks Goal 1: Pt to be instructed in home exercise program. Meter Technician Goals: To be met in 10 weeks Goal 1: Pt to report independence and compliance with home program. Goal 2: Pt to achieve 110 degrees left knee flexion to assist with functional tasks such as squatting. Goal 3: Pt to be lacking no greater than 1 degree left knee extension to assist with proper gait. Goal 4: Pt to achieve 4/5 strength left knee flexion and extension to assist with functional mobility and ADL's. Goal 5: Pt to score no less than 35/80 on LEFS indicating improved QOL. Pt will benefit from skilled PT for 2x/week from 05/09/2024 to 07/18/2024 to address the above impairments. I hereby deem this POC medically necessary. Please sign below. Date: documented in this encounter [facility] 04-19-2024 Telephone encounter Note This patient requests that her Benlysta infuse over 2 hours instead of 1 hour. She states that she had issues with nausea and not feeling well in the past when infused over 1 hour. Can you please change her plan to reflect this if you agree? Thank you [facility] 04-19-2024 Miscellaneous Notes This patient requests that her Benlysta infuse over 2 hours instead of 1 hour. She states that she had issues with nausea and not feeling well in the past when infused over 1 hour. Can you please change her plan to reflect this if you agree? Thank you documented in this encounter [facility] 04-19-2024 History of Present illness Narrative Since your last infusion, have you: Had any major change in your health (including new diagnosis of cancer, COPD or cogestive heart failure? No Been hospitalized? No Had any infections? No Taking antibiotics/antivirals/antifungal s for current infection? No Had surgery or [...] open sores? No documented in this encounter [facility] 04-16-2024 Miscellaneous Notes Contract: [id number] Dr Zhang., radiologist at [place] [phone] re ultrasound results. Thanks. michael Pickens. documented in this encounter [facility] 04-16-2024 Telephone encounter Note Contract: [id number] Dr Zhang., radiologist at [place] [phone] re ultrasound results. Thanks. michael Pickens. [facility] 04-15-2024 Telephone encounter Note Confirmed patient will be here for infusion and is infection free. [facility] 04-15-2024 Miscellaneous Notes Confirmed patient will be here for infusion and is infection free. documented in this encounter [facility] 04-07-2024 Hospital Discharge instructions Jori Kaiser MD - 04/07/2024 3:01 PM EDT INSTRUCTIONS AFTER PROCEDURE: * In the first week after procedure you should take it easy. No heavy lifting or heavy exertion, no treadmill. You can use the stairs if needed but go slowly and minimize the number of times up and down. * Some minor bruising is common at each groin access site with minor soreness as if you had banged the area. Bruising may occasionally be seen to extend down the leg. This is normal as is an occasional small quarter sized bump in the area. If larger swelling or more significant pain occurs at the area, please contact the office or go the nearest Emergency Room. * All medications will generally remain the same unless you are told otherwise. Resume taking your home medications today as listed on the discharge instructions. *Continue to follow up with your primary film editor supervisor, primary care physician, and any other specialists you normally see. *No driving for 2 days post procedure (IF you were driving prior to procedure). *Diet: Heart healthy Call Provider If: Breathing faster than normal. Fever of 100.4 F (38 C) or higher. Chills. Any new concerning symptoms. Passing out. Patient Instructions, Next 24 hours: DO NOT drive a car, operate machinery or power tools. It is recommended that a responsible adult be with you for the first 24 hours. DO NOT drink any alcoholic drinks or take any non-prescriptive medications that contain alcohol for the first 24 hours. DO NOT make any important decisions for the first 24 hours. Activity: You are advised to go directly home from the hospital. DO NOT lift anything heavier than 10 pounds for one week, this allows for proper healing of the groin. No excessive exercise or treadmill use for one week. You may walk and do stairs, slowly. No sexual activities for 24 hours after you arrive home. Wound Care: If slight bleeding should occur at site, lie down and have someone apply firm pressure just above the puncture site for 5 minutes. If it continues or is profuse, call 911. Always notify your doctor if bleeding occurs. Keep site clean and dry. Let air dry or you may use a simple bandaid. Gently cleanse the puncture site in your groin with soap and water only. You may experience some tenderness, bruising or minimal inflammation. If you have any concerns, you may contact the Document Control Manager or if any of these symptoms become excessive, contact your film editor supervisor or go to the emergency room. No tub baths, soaking, or swimming for one week. May shower the next day after your procedure. If you have any questions about the effects of the sedative drugs or groin care, call the physician who performed your procedure. FOLLOW UP: Court Kaur - already scheduled documented in this encounter [facility] Work Phone: 03-30-2024 Miscellaneous Notes Patient asked at the discharge window if she could take this again for 3 months. documented in this encounter [facility] 03-30-2024 Telephone encounter Note Patient asked at the discharge window if she could take this again for 3 months. [facility] 03-30-2024 History of Present illness Narrative Images from the original note were not included. Subjective Patient ID: Jesus Wolf is a 69 y.o. female. Jesus presents today for recheck of multiple problems. She is due for labs check her thyroid, cholesterol and blood pressure. She is taking all of her medications. She does not have any side effects. She has been having right knee pain and saw the specialist who ordered an x-ray and showed severe arthritis. They ordered therapy and she wonders if she has to go to therapy. Her left shoulder is also hurting in her left upper arm area. Her left upper arm is more swollen than the right upper arm. The veins are more prominent as well. She had 1 of her parathyroid hormones removed last year and her calcium is now normal. She is going to get a Watchman procedure done next week. She had abnormal GFR with her rheumatology testing so they sent her to a monument setter helper at the [facility] who did an ultrasound of her kidneys and bladder and did other blood test. She is still taking the Celebrex. The following portions of the patient's history were reviewed and updated as appropriate: allergies, current medications, past family history, past medical history, past social history, past surgical history, problem list, and medication reconciliation was completed including current medication and post discharge medication. Review of Systems Constitutional: Negative. Eyes: Negative. Respiratory: Negative. Cardiovascular: Negative. Gastrointestinal: Negative. Musculoskeletal: Positive for arthralgias, back pain, joint swelling and myalgias. Negative for gait problem. Skin: Negative. Psychiatric/Behavioral: The patient is nervous/anxious. Objective Physical Exam Exam conducted with a materials mgmt tech present (Emiliano Reyna MS III). Constitutional: Appearance: She is morbidly obese. HENT: Head: Normocephalic. Eyes: General: No scleral icterus. Extraocular Movements: Extraocular movements intact. Conjunctiva/sclera: Conjunctivae normal. Neck: Vascular: No carotid bruit. Cardiovascular: Rate and Rhythm: Normal rate and regular rhythm. Pulses: Normal pulses. Heart sounds: Normal heart sounds. No murmur heard. Comments: Varicose veins left upper arm Pulmonary: Effort: Pulmonary effort is normal. No respiratory distress. Breath sounds: Normal breath sounds. No wheezing, rhonchi or rales. Musculoskeletal: Left upper arm: Swelling, edema and tenderness present. No deformity or bony tenderness. Arms: Cervical back: Neck supple. Right lower leg: No edema. Left lower leg: No edema. Lymphadenopathy: Cervical: No cervical adenopathy. Skin: General: Skin is warm. Neurological: General: No focal deficit present. Mental Status: She is alert and oriented to person, place, and time. Psychiatric: Attention and Perception: Attention normal. Mood and Affect: Mood and affect normal. Speech: Speech normal. Behavior: Behavior normal. Behavior is cooperative. Thought Content: Thought content normal. Cognition and Memory: Cognition and memory normal. Judgment: Judgment normal. Assessment/Plan Jesus was seen today for follow-up. Diagnoses and all orders for this visit: Essential hypertension Blood pressure at goal. She just had a CMP done which showed stage IIIA chronic kidney disease. She is seeing the monument setter helper. Localized osteoarthritis of left knee - Ambulatory referral to Physical Therapy ([facility]); Future I recommend that she follows through with physical therapy because it may help and if it does not then it will lend to her case that she needs a surgical intervention. Continue Celebrex. Can also use Tylenol. Varicose veins of left upper extremity - Vas venous duplex upr single left; Future Check an ultrasound of her left upper arm as it is swollen and dilated veins. There is concerned about some sort of obstructive process in her left upper arm or chest. Localized swelling, mass and lump, head - Vas venous duplex upr single left; Future As above Mixed hyperlipidemia - Lipid panel; Future Check lipid panel Acquired hypothyroidism - Thyroid profile includes TSH FT4; Future Check TSH and T4. Hyperparathyroidism (CMS-HCC) Much better now that 1 of her parathyroid glands were removed Obesity, morbid (CMS-HCC) She is morbidly obese. She would benefit from weight loss. Diet exercise and weight loss discussed. She is really is not able to exercise much due to multiple medical problems. Encounter for screening mammogram for malignant neoplasm of breast - Mammography screening bilateral with CAD; Future Check mammogram to screen for breast cancer. She would pursue further evaluation and treatment. Anxiety She would like to restart the BuSpar. She is not sure why it was stopped. We will restart it 5 mg 3 times a day documented in this encounter [facility] 03-28-2024 History of Present illness Narrative Radiology Service Progress Note PATIENT NAME: Jesus Wolf DATE OF SERVICE: March 28, 2024 TIME: 11:24 AM PATIENT IDENTITY VERIFICATION COMPLETED USING TWO (2) IDENTIFIERS: Name and Date of confirmed by patient verbally. FALL SCREENING: Has the patient had 2 falls in the last year or 1 fall with injury or currently using an Ambulatory Assistive Device (Walker, Cane, Wheelchair, Crutches, etc.)? No PATIENT GENDER DATA: Female. status: : No status: N/A PATIENT RELEVANT IMPLANT DATA REVIEWED: Not Applicable PATIENT PRESENTS WITH AN IMPLANTABLE OR ATTACHED MINESWEEPING OFFICER: No RADIOLOGY DEPARTMENT: Ultrasound PERIPHERAL IV DATA: Not applicable SIGNED BY: Romana Nath RDMS March 28, 2024 11:24 AM documented in this encounter [facility] 03-17-2024 Note Addended by: NADEGE KUHN on: 03/17/2024 11:11 AM Modules accepted: Orders [facility] 03-17-2024 Miscellaneous Notes Addended by: NADEGE MURPHY on: 03/17/2024 11:11 AM Modules accepted: Orders Addended by: SERGO VILA on: 03/17/2024 11:01 AM Modules accepted: Orders Images from the original note were not included. Most recent Rheumatology visit: 03/15/2024 (with Julia Ann) Rheumatology Care Team: None on file Recent Office Visits - This Specialty 03/15/2024 Osteopenia of multiple sites [facility] Julia Ann PA-C 12/25/2023 Systemic lupus erythematosus, unspecified SLE type, unspecified organ involvement status (HCC) Rheumatology Nadege Murphy DO 10/13/2023 Osteopenia, unspecified location [facility] Julia Ann PA-C Upcoming Rheumatology Appointments - Next 365 Days Visit Type Date Time Department [facility] EST [facility] 07/11/2024 2:00 PM [facility] MAIN A50 VIDEO SPEC EST 09/20/2024 1:00 PM BONE MAIN Last Ophthalmology Check for Plaquenil (Hydroxychloroquine) Last OCT Macula Exam No resulted procedures found. Last Visual Field Exam No resulted procedures found. CBC: Latest Ref Rng & Units 04/22/2023 12/28/2023 CBC WBC 3.70 - 11.00 k/uL 6.47 7.04 Hemoglobin 11.5 - 15.5 g/dL 12.3 13.8 Hematocrit 36.0 - 46.0 % 37.0 42.0 Platelet Count 150 - 400 k/uL 248 220 Abs Neut (ANC) 1.45 - 7.50 k/uL 4.31 4.47 Abs Lymph 1.00 - 4.00 k/uL 1.28 1.42 Vitamin D: Latest Ref Rng & Units 02/04/2023 10/13/2023 Vitamin D Vitamin D 25 Hydroxy 31.0 - 80.0 ng/mL 52.0 43.4 LFT: Latest Ref Rng & Units 12/28/2023 03/15/2024 CMP Sodium 136 - 144 mmol/L 142 143 Potassium 3.7 - 5.1 mmol/L 3.7 4.5 Chloride 98 - 107 mmol/L 107 105 CO2 22 - 30 mmol/L 27 27 Glucose 74 - 99 mg/dL 130 89 BUN 7 - 21 mg/dL 29 18 Creatinine 0.58 - 0.96 mg/dL 1.07 1.14 Calcium 8.5 - 10.2 mg/dL 10.2 9.3 AST 13 - 35 U/L 26 ALT 7 - 38 U/L 24 Alkaline Phosphatase 34 - 123 U/L 114 Hepatic Function: Creatinine: Latest Ref Rng & Units 12/28/2023 03/15/2024 Creatinine Creatinine 0.58 - 0.96 mg/dL 1.07 1.14 ESR/CRP: None on file in the last 6 months Uric Acid: None on file in the last 6 months Open Standing (Multiple Instance) Lab Orders None Open Future (Single Instance) Lab Orders None documented in this encounter [facility] 03-17-2024 Note Addended by: SERGO VILA on: 03/17/2024 11:01 AM Modules accepted: Orders [facility] 03-17-2024 Telephone encounter Note Images from the original note were not included. Most recent Rheumatology visit: 03/15/2024 (with Julia Ann) Rheumatology Care Team: None on file Recent Office Visits - This Specialty 03/15/2024 Osteopenia of multiple sites [facility] Julia Ann PA-C 12/25/2023 Systemic lupus erythematosus, unspecified SLE type, unspecified organ involvement status (HCC) Rheumatology Nadege Murphy DO 10/13/2023 Osteopenia, unspecified location [facility] Julia Ann PA-C Upcoming Rheumatology Appointments - Next 365 Days Visit Type Date Time Department [facility] 07/11/2024 2:00 PM [facility] MAIN A50 VIDEO SPEC EST 09/20/2024 1:00 PM BONE MAIN Last Ophthalmology Check for Plaquenil (Hydroxychloroquine) Last OCT Macula Exam No resulted procedures found. Last Visual Field Exam No resulted procedures found. CBC: Latest Ref Rng & Units 04/22/2023 12/28/2023 CBC WBC 3.70 - 11.00 k/uL 6.47 7.04 Hemoglobin 11.5 - 15.5 g/dL 12.3 13.8 Hematocrit 36.0 - 46.0 % 37.0 42.0 Platelet Count 150 - 400 k/uL 248 220 Abs Neut (ANC) 1.45 - 7.50 k/uL 4.31 4.47 Abs Lymph 1.00 - 4.00 k/uL 1.28 1.42 Vitamin D: Latest Ref Rng & Units 02/04/2023 10/13/2023 Vitamin D Vitamin D 25 Hydroxy 31.0 - 80.0 ng/mL 52.0 43.4 LFT: Latest Ref Rng & Units 12/28/2023 03/15/2024 CMP Sodium 136 - 144 mmol/L 142 143 Potassium 3.7 - 5.1 mmol/L 3.7 4.5 Chloride 98 - 107 mmol/L 107 105 CO2 22 - 30 mmol/L 27 27 Glucose 74 - 99 mg/dL 130 89 BUN 7 - 21 mg/dL 29 18 Creatinine 0.58 - 0.96 mg/dL 1.07 1.14 Calcium 8.5 - 10.2 mg/dL 10.2 9.3 AST 13 - 35 U/L 26 ALT 7 - 38 U/L 24 Alkaline Phosphatase 34 - 123 U/L 114 Hepatic Function: Creatinine: Latest Ref Rng & Units 12/28/2023 03/15/2024 Creatinine Creatinine 0.58 - 0.96 mg/dL 1.07 1.14 ESR/CRP: None on file in the last 6 months Uric Acid: None on file in the last 6 months Open Standing (Multiple Instance) Lab Orders None Open Future (Single Instance) Lab Orders None [facility] 03-15-2024 History of Present illness Narrative Radiology Service Progress Note PATIENT NAME: Jesus Wolf DATE OF SERVICE: March 15, 2024 TIME: 3:40 PM PATIENT IDENTITY VERIFICATION COMPLETED USING TWO (2) IDENTIFIERS: Name and Date of confirmed by patient verbally. FALL SCREENING: Has the patient had 2 falls in the last year or 1 fall with injury or currently using an Ambulatory Assistive Device (Walker, Cane, Wheelchair, Crutches, etc.)? No PATIENT GENDER DATA: Female. status: : No status: NO. PATIENT RELEVANT IMPLANT DATA REVIEWED: Not Applicable PATIENT PRESENTS WITH AN IMPLANTABLE OR ATTACHED MINESWEEPING OFFICER: No RADIOLOGY DEPARTMENT: General X-ray: Exam(s) Completed: Lower Extremity X-Ray(s): Knee, AP / LAT Left PERIPHERAL IV DATA: Not applicable SIGNED BY: RT Albino(R) March 15, 2024 3:40 PM documented in this encounter [facility] 03-15-2024 History of Present illness Narrative Images from the original note were not included. Osteoporosis and Metabolic Bone Disease Date of Service: 03/15/2024 Patient: Jesus Wolf Medical Record: [id number] Primary Care Physician: Wojciech Treviño MD, DO Last Rheumatology visit: 12/25/2023 (with Nadege Murphy) History of Present Illness Jesus Wolf is a 69 year old White female who presents on 03/15/2024 for an in-person visit for evaluation of Osteopenia. INTERVAL HISTORY Presents today for osteopenia follow up. No new fractures or falls. No planned dental procedures. Has been taking Fosamax since 04/2022 as instructed. Tolerating well with no concerns. Patient had a parathyroidectomy on 08/27/2022. Taking 500 mg of calcium daily. Taking vitamin D. Patient complains of L knee pain x 1 month. Does not recall an inciting injury. Pain worsen with movement and flexion of the knee. She takes Aleve 2-3x/day. Disease History Previous Visit History: HISTORY OF [...] of fractures Most Recent BMD Date: 03/13/22 LS T-Score: 1.4 L Hip T-Score: -1.8 Date of FRAX (WHO 10-year fracture risk assessment tool): 05/12/22 FRAX 10-year fracture risk: hip: 1.6% FRAX 10-year fracture risk: major osteoporotic: 10% Daily Calcium diet: 1021 mg Daily Calcium supplementation: 500 mg Daily Vitamin D: 2000 IU Current Multivitamin: Yes Dental: No planned dental procedures. Link to FRAX Website RAPID 3 [place] [...] use (Comment: Daily steroid uses from about [id number]) Previous use No rheumatoid arthritis Secondary osteoporosis [...] DENSITY RESULTS Last Bone Density DXA-AXIAL SKELETON WITH VFA Exam End: 03/15/2024 2:20 PM (Final result) Narrative: * * *Final Report* * * DATE OF EXAM: Mar 15 2024 2:20PM [facility] [id number] - BD VFA WITH DXA - AXIAL SKELETON / PROCEDURE REASON: multiple diagnoses * * * * Physician Interpretation * * * * EXAMINATION: DXA BONE DENSITOMETRY BD VFA WITH DXA - AXIAL SKELETON PATIENT DEMOGRAPHICS: Age: 69 years, Gender: Female SCANNER INFORMATION: DXA Model: Xenome1 [employer] Extra (S/N: [id number]) Date Scanned: 03/15/2024 2:20 PM CLINICAL HISTORY: DIAGNOSTIC Osteopenia, unspecified location S/P parathyroidectomy S/P parathyroidectomy halfway (current) use of 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. RISK FACTORS FOR OSTEOPOROSIS AND ASSOCIATED FRACTURES REPORTED BY THIS PATIENT: Please refer to Bone Health Questionnaire in the EMR CURRENT THERAPY: Please refer to Bone Health Questionnaire in the EMR TECHNICAL LIMITATIONS: Degenerative disease of the spine right hip surgery RESULTS: Lumbar Spine (L1, L2, L3): Total BMD: 1.336 g/cm2, T-score: 1.4 , Z-score: 3.0 Left Femoral Neck: 0.789 g/cm2, T-score -1.8, Z-score -0.2 Left Total Hip: 0.923 g/cm2, T-score -0.7 , Z-score 0.7 No comparison data - the patient has not had a previous bone density in the [facility] or the previous bone density was performed on a different DXA machine (new, updated model or different location) within the [facility]. VERTEBRAL FRACTURE ASSESSMENT Indication for VFA: Physician ordered Levels visualized: T6-L5 Results: No fracture identified Presence of a single vertebral fracture increases subsequent global fracture risk, multiple fractures significantly increase fracture risk. TRABECULAR BONE ASSESSMENT TBS not performed: BMI outside recommended range for calculation of TBS. Impression: IMPRESSION: THE LOWEST T-SCORE IS -1.8 IN THE LEFT HIP 1) DIAGNOSIS (based on BMD alone): OSTEOPENIA - Caution: Medical conditions other than osteoporosis may cause low bone density, such as osteomalacia or renal osteodystrophy. Clinical correlation is necessary. 2) FRACTURE RISK (based on BMD alone) INCREASED - Caution: Fracture risk may be increased independent of BMD in patients with corticosteroid use, age greater than 65 years, or a history of prior fragility fracture. - FRAX was not calculated: bisphosphonate currently or within the last 2 years RECOMMENDATIONS: Follow-up in 2 years or as clinically indicated. Patients that are taking corticosteroids, are transplant recipients or have hyperparathyroidism should have annual follow-up. Follow-up scans should always be done on the same machine for accurate comparison. FOR MORE INFORMATION ABOUT DIAGNOSIS AND TREATMENT: [facility] Osteoporosis and Metabolic Bone Disease:? www.ccf.org/arthritis/osteo National Osteoporosis Foundation:? www.nof.org International Society of Clinical Densitometry www.iscd.org Trans Router: 373327 Transcribe Date/Time: Mar 15 2024 2:24P Dictated by : CHIKIS GARCIA MD This examination was interpreted and the report reviewed and electronically signed by: CHIKIS GARCIA MD on Mar 15 2024 2:59PM EST BONE DENSITY RESULTS: EXTERNAL WOMEN / ESTROGEN Age of Menarche: 11 years Menstrual history: 12 menses/yr Menopause status: post-menopausal Type of Menopause: natural Age of Menopause: 56 years Previous estrogen use: none Hysterectomy: No Ovaries: intact Breast cancer: No Family history of breast cancer: No OB History No obstetric history on file. Patient-Entered Data PAIN EVALUATION 03/11/2024 1616 03/15/2024 1417 Pain Level: 7 8 Pain Location: Knee-Left -- Description: Aching;Burning;Sharp;Sore;Stabbin g;Stiffness;Tenderness;Throbbing; Tightness -- Can't hardly walk on knee Duration Units: Weeks -- Frequency: Continuous Continuous Intervention/Comfort measure: Medication -- Comments: Wakes me up when sleeping , -- PROMIS Assessments 10/09/2023 12/24/2023 03/11/2024 PROMIS Assessments Physical Health Percentile 7 7 Mental Health Percentile 26 19 Pain Score 3 2 Pain Interference Percentile 12 10 18 Fatigue Percentile 18 12 16 Physical Function Percentile 4 4 4 RAPID 3 [place] Activities of Daily Living No Data Dress self? - Get in and out of bed? - Walk outdoors? - Wash and dry body? - Get in and out of car? - RAPID 3 Disease Activity Weighed Score Levels: 0 - 1: Near Remission 1.3 - 2.0: Low Severity 2.3 - 4.0: Moderate Severity 4.3 - 10.0: High Severity 12/14/2018 08/24/2019 10/21/2019 RAPID-3 Weighed Score RAPID 3 Weighed Score 4.9 4.9 4.7 PHQ-9 0 - 4: Minimal Depression 5 - 9: Mild Depression 10 - 14: Moderate Depression 15 - 19: Moderately Severe Depression 20 - 27: Severe Depression 11/13/2021 04/10/2023 06/26/2023 PHQ-9 PHQ-2 Score 0 0 1 Review of Systems Review of Systems CONSTITUTION: Negative for: Fever and Recent weight change HEENT: Negative for: Nosebleeds, Mouth sores, Trouble swallowing and Dry mouth RESPIRATORY: Positive for: Shortness of breath Negative for: Cough and Pain with breathing GASTROINTESTINAL: Negative for: Melena, Diarrhea, Heartburn and Abdominal pain MUSCULOSKELETAL: Positive for: Arthralgias, Myalgias, Muscle weakness, Joint swelling and Morning Joint Stiffness NEUROLOGICAL: Negative for: Headaches, Numbness and Memory loss SKIN: Positive for: Rash, Sun Sensitive Rash and Nail changes Negative for: Skin changes and Hair loss EYES: Negative for: Eye pain, Eye redness, Eye dryness and visual disturbance CARDIOVASCULAR: Positive for: Leg swelling Negative for: Chest pain GENITOURINARY: Negative for: Dysuria and Hematuria HEMATOLOGIC/LYMPHATIC: [...] TUNNEL RIGHT WRIST surgical correction COLONOSCOPY 05/10/2019 [facility] COLONOSCOPY GEN ANES 07/23/2020 Dr. Frances/Diverticulosis/Hemorrhoids/ Ulcerative Colitis/Rpt in 2 yrs. COLONOSCOPY SCREENING 03/2023 EGD EUS 01/11/2020 [facility] LASIK Right prior to [...] Start End alendronate (FOSAMAX) 70 mg tablet 03/15/2024 09/11/2024 Sig - Route: Take 1 tablet by mouth one time a week. In the morning with a full glass of water, on an empty stomach. Do not take anything else by mouth or lie down for the next 30 minutes. - ORAL Current Calcium, Multivitamin, and Vitamin D Use on File Minerals and Electrolytes - Calcium Replacement/Vitamin D Combinations Start End qczshez-nemmgrqnh-ktmhmsa D3 500 mg-5 mcg (200 unit) per tablet 08/27/2022 -- Sig - Route: Take 1 tablet by mouth three times daily. - ORAL Class: OTC Vitamins - D Derivatives Start End Cholecalciferol, Vitamin D3, 2,000 unit cap -- Sig - Route: Take by mouth once daily. - ORAL Class: Historical Med Multivitamin and Mineral Combinations Start End MV with Gwa-Gjpwhnik-Gsayrv (CENTRUM SILVER) 0.4 mg-300 mcg- 250 mcg tab -- Sig - Route: Take 1 tablet by mouth once daily. - ORAL Class: Historical Med Minerals and Electrolytes - Calcium Replacement/Vitamin D Combinations Start End rjbkgzh-kszbwkfny-pqurnsd D3 500 mg-5 mcg (200 unit) per tablet 08/27/2022 -- Sig - Route: Take 1 tablet by mouth three times daily. - ORAL Class: OTC Current Outpatient Medications Medication Sig hydrOXYchloroQUINE (PLAQUENIL) 200 mg tablet take 1 tablet by mouth twice a day with food Mesalamine (LIALDA) 1.2 gram EC tablet Take 4 tablets by mouth once daily. pantoprazole DR (PROTONIX) 40 mg tablet Take 1 tablet by mouth twice daily colestipol (COLESTID) 1 gram tablet Take 3 tablets by mouth two times a day. ferrous sulfate (IRON) 325 mg (65 mg iron) tablet Take 1 tablet by mouth once daily. amiodarone (PACERONE) 200 mg tablet Take 1 tablet by mouth every 12 hours. metoprolol succinate ER (TOPROL XL) 50 mg 24 hr tablet TAKE 1 TABLET BY MOUTH IN THE MORNING AND 2 TABLETS BY MOUTH IN THE EVENING ELIQUIS 5 mg tab(s) Take 5 mg by mouth twice daily. acetaminophen (TYLENOL) 500 mg tablet Take 1 tablet by mouth every 4 hours as needed for pain. rvxjoin-qpbdqcwww-faqrqub D3 500 mg-5 mcg (200 unit) per tablet Take 1 tablet by mouth three times daily. MV with Azp-Ikqurwcq-Msuhii (CENTRUM SILVER) 0.4 mg-300 mcg- 250 mcg [...] 10 mg by mouth daily at bedtime. Cholecalciferol, Vitamin D3, 2,000 unit cap Take by mouth once daily. vitamin b complex(B COMPLEX TAB) one daily multivitamins w-minerals/lut(CENTRUM SILVER TAB) Take one(1) tablet daily. alendronate (FOSAMAX) 70 mg tablet Take 1 tablet by mouth one time a week. In the morning with a full glass of water, on an empty stomach. Do not take anything else by mouth or lie down for the next 30 minutes. iv contrast (will be provided with radiology [...] in the MR contrast administration guidelines link. amoxicillin (AMOXIL) 500 mg capsule Take 4 tablets one hour prior to dental procedure (Patient not taking: Reported on 10/13/2023) No current facility-administered medications for this visit. Labs Latest Ref Rng & Units 02/04/2023 04/22/2023 10/13/2023 12/28/2023 Calcium Calcium 8.5 - 10.2 mg/dL 9.8 9.2 9.6 10.2 Latest Ref Rng & Units 02/04/2023 04/22/2023 10/13/2023 12/28/2023 Alkaline Phosphatase Alkaline Phosphatase 34 - 123 U/L 116 113 101 114 Alkaline Phosphatase 34 - 123 U/L 116 113 101 114 Latest Ref Rng & Units 07/14/2012 09/11/2020 05/16/2021 TSH TSH 0.270 - 4.200 uU/mL 2.760 5.850 0.328 Latest Ref Rng & Units 04/18/2022 07/31/2022 02/04/2023 10/13/2023 Vitamin D Vitamin D 25 Hydroxy 31.0 - 80.0 ng/mL 58.2 44.3 52.0 43.4 Vit D1,25 Dihydroxy 19.9 - 79.3 pg/mL 35.6 Latest Ref Rng & Units 02/04/2023 04/22/2023 10/13/2023 12/28/2023 Creatinine Creatinine 0.58 - 0.96 mg/dL 1.14 1.24 1.04 1.07 Latest Ref Rng & Units 02/04/2023 04/22/2023 10/13/2023 12/28/2023 Protein, Total PTH, Intact 15 - 65 pg/mL 47 Protein, Total 6.3 - 8.0 g/dL 6.8 6.3 6.2 6.7 Latest Ref Rng & Units 02/04/2023 04/22/2023 10/13/2023 12/28/2023 Albumin Albumin 3.9 - 4.9 g/dL 4.2 4.2 3.9 4.4 Latest Ref Rng & Units 07/31/2022 08/28/2022 09/09/2022 02/04/2023 PTH PTH, Intact 15 - 65 pg/mL 99 12 29 47 Latest Ref Rng & Units 02/21/2010 07/14/2012 05/11/2017 09/11/2020 Immunoglobulins Alpha 1 Globulin 0.18 - 0.31 gm/dL 0.25 0.22 Alpha 2 Globulin 0.52 - 0.97 gm/dL 1.38 0.77 Beta Globulin 0.84 - 1.36 gm/dL 0.81 0.85 Gamma Globulin 0.70 - 1.44 gm/dL 0.69 0.65 IgA 70 - 400 mg/dL 81 63 Interpretation (Prot Electro) No definitive M-protein is identified on protein electrophoresis. Hypoalbuminemia is present. Elevation of acute phase reactants is present. Electrophoretic pattern is consistent with acute or subacute inflammation or infection. No definitive M protein is identified on protein electrophoresis. Latest Ref Rng & Units 02/21/2010 12/18/2015 06/25/2020 Hepatitis Screen Hep B Core Ab, Total Negative Negative Negative Negative Hep B Surf Ab Qual Negative Negative Negative Negative Hep C Antibody IA Negative Negative Negative Hep B Surface Ag Negative Negative HBsAg Negative Negative Negative Latest Ref Rng & Units 06/25/2020 TPMT amd G6PD TPMT Activity 24.0 - 44.0 U/mL 29.5 Imaging Last [...] Only No resulted procedures found. Health Maintenance Cervical Cancer Screening Never done Annual PCP Team Chronic Disease Visit Never done Depression Screening Never done Anxiety Screening Never done DTaP,Tdap,Td Vaccine(1 - Tdap) Never done Covid-19 Vaccine(3 - season) due on 04/17/2023 Advance Directive Discussion Never done Mammogram Screening due on 04/01/2024 Influenza Vaccine(1) due on 04/17/2024 BP Controlled (<130/80) due on 03/15/2025 Diabetes Screening due on 01/03/2027 Colorectal Cancer Screening due on 04/02/2028 Lipid Screening due on 04/22/2028 Bone Density Screening Completed RSV Vaccine Completed Hepatitis C Screening Completed Shingrix Vaccine Completed Pneumococcal Vaccine: 65+ Completed Physical Exam BP 129/56 Pulse 77 Temp 36.6 C (97.9 F) (Temporal) Ht 166.4 cm (5' 5.5 ) Wt 121.1 kg (266 lb 15.6 oz) LMP 07/17/2011 (Within Years) BMI 43.75 kg/m EYES: ARA, conjunctiva and sclera normal. EARS: External ears normal. NOSE/SINUS: Nares normal. THROAT: Normal and no erythema. DENTAL: Normal HEART: RRR with normal S1 and S2 ,no murmurs, no gallops, no JVD appreciated. LUNGS: Clear to auscultation. NEURO: Awake, alert and oriented x 3 and no involuntary motions. JOINT EXAM Knees: (exam limited by body habitus) No appreciable effusion, warmth, proximal streaking or erythema bilaterally. L prepatellar tenderness to palpation. ROM intact bilateral, painful L knee flexion. Examination of Back: Profile -Dorsal kyphosis TS: No Back Pain: no Impression & Plan The patient has: osteopenia No history of fractures Most Recent BMD Date: 03/13/22 LS T-Score: 1.4 L Hip T-Score: -1.8 Jesus Wolf is a 69 year old female with history of SLE presenting for an osteopenia evaluation. She has previously been treated with Fosamax from 02/2010-04/2010 & 10/2017-10/2019 and Boniva from 04/2010-06/2012. Currently on Fosamax since 04/2022. S/p parathyroidectomy in 08/2022. Calcium intake is adequate. Vitamin D is adequate. L knee pain x1 month. No inciting injury. Physical exam limited due to body habitus. No appreciable effusion to palpation, proximal streaking, warmth or erythema. Prepatellar tenderness with palpation consistent with quadricept tendinosis. Pain exacerbated with active knee flexion. Low suspicion that this is related to lupus. Has been taking aleve 2-3x/day. Explained importance of discontinuing due kidney disease. Patient confirmed understanding. Osteoporosis FRAX Risk Factors No Fractures No family history of osteoporosis No parent with a hip fracture Not a current smoker Glucocorticoid use (Comment: Daily steroid uses from about [id number]) Previous use No rheumatoid arthritis Secondary osteoporosis Malabsorption No alcohol use more than 3 units per day FRAX (WHO 10 Year Fracture Risk) Date of FRAX assessment: 05/12/22 Hip: 1.6% Major Osteoporotic: 10% Diagnoses: (M85.89) Osteopenia of multiple sites (primary encounter diagnosis) (Z98.890, Z90.89) S/P parathyroidectomy (Z79.83) halfway (current) use of 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 (M25.562) Acute pain of left knee Plan: Continue Fosamax. Update Lab. Calcium 1200 to 1500 mg daily recommended- if cannot achieve this through diet, then supplement recommended in divided doses. Continue vitamin D. Weight bearing exercise as tolerated recommended. Fall precautions discussed. Continue fall prevention with physical therapy. Repeat bmd on same machine as prior around 02/2024. D/c Aleve. Continue tylenol as needed. XR L knee. Will likely advise physical therapy. Discussed exploring aquatic therapy. Continued f/u with PCP for routine health maintenance advised. Orders this visit: Office Visit on 03/15/24 XR KNEE GENERAL 4V AP BOTH/PA BOTH/LAT/MERC LEFT BASIC METABOLIC PANEL alendronate (FOSAMAX) 70 mg tablet Return in about 6 months (around 09/15/2024) for Virtual Visit. I spent a total of 39 minutes on the date of the service which included preparing to see the patient, [id number] patient care, completing clinical documentation, obtaining and/or reviewing separately obtained history, performing a medically appropriate examination, counseling and educating the patient/family/caregiver, and ordering medications, tests, or procedures. Julia Ann PA-C Date: March 15, 2024 documented in this encounter [facility] 03-15-2024 History of Present illness Narrative Radiology Service Progress Note PATIENT NAME: Jesus Wolf DATE OF SERVICE: March 15, 2024 TIME: 1:36 PM PATIENT IDENTITY VERIFICATION COMPLETED USING TWO [...] PATIENT PRESENTS WITH AN IMPLANTABLE OR ATTACHED MINESWEEPING OFFICER: No RADIOLOGY DEPARTMENT: Bone Density PERIPHERAL IV DATA: Not applicable SIGNED BY: RT Butch(R) March 15, 2024 1:36 PM documented in this encounter [facility] 03-07-2024 Telephone encounter Note Images from the original note were not included. Eye Exam 10/27/2023: Scan on 10/27/2023 10:24 AM by ProviderSang PA-C: Consultation - Ophthalmology Most recent Rheumatology visit: 12/25/2023 (with Nadege Murphy) Rheumatology Care Team: None on file Recent Office Visits - This Specialty 12/25/2023 Systemic lupus erythematosus, unspecified SLE type, unspecified organ involvement status (HCC) Rheumatology Nadege Murphy DO 10/13/2023 Osteopenia, unspecified location [facility] Julia Ann PA-C 04/10/2023 Systemic lupus erythematosus, unspecified SLE type, unspecified organ involvement status (HCC) Rheumatology Nadege Murphy DO Upcoming Rheumatology Appointments - Next 365 Days Visit Type Date Time Department ARETHA EST BONE 03/15/2024 2:30 PM BONE MAIN Last Ophthalmology Check for Plaquenil (Hydroxychloroquine) Last OCT Macula Exam No resulted procedures found. Last Visual Field Exam No resulted procedures found. CBC: Latest Ref Rng & Units 04/22/2023 12/28/2023 CBC WBC 3.70 - 11.00 k/uL 6.47 7.04 Hemoglobin 11.5 - 15.5 g/dL 12.3 13.8 Hematocrit 36.0 - 46.0 % 37.0 42.0 Platelet Count 150 - 400 k/uL 248 220 Abs Neut (ANC) 1.45 - 7.50 k/uL 4.31 4.47 Abs Lymph 1.00 - 4.00 k/uL 1.28 1.42 Vitamin D: Latest Ref Rng & Units 02/04/2023 10/13/2023 Vitamin D Vitamin D 25 Hydroxy 31.0 - 80.0 ng/mL 52.0 43.4 LFT: Latest Ref Rng & Units 10/13/2023 12/28/2023 CMP Sodium 136 - 144 mmol/L 143 142 Potassium 3.7 - 5.1 mmol/L 4.6 3.7 Chloride 97 - 105 mmol/L 107 107 CO2 22 - 30 mmol/L 24 27 Glucose 74 - 99 mg/dL 101 130 BUN 7 - 21 mg/dL 29 29 Creatinine 0.58 - 0.96 mg/dL 1.04 1.07 Calcium 8.5 - 10.2 mg/dL 9.6 10.2 AST 13 - 35 U/L 25 26 ALT 7 - 38 U/L 24 24 Alkaline Phosphatase 34 - 123 U/L 101 114 Hepatic Function: Creatinine: Latest Ref Rng & Units 10/13/2023 12/28/2023 Creatinine Creatinine 0.58 - 0.96 mg/dL 1.04 1.07 ESR/CRP: None on file in the last 6 months Uric Acid: None on file in the last 6 months Open Standing (Multiple Instance) Lab Orders None Open Future (Single Instance) Lab Orders None [facility] 03-07-2024 Miscellaneous Notes Images from the original note were not included. Eye Exam 10/27/2023: Scan on 10/27/2023 10:24 AM by Provider, ISELA Domínguez: Consultation - Ophthalmology Most recent Rheumatology visit: 12/25/2023 (with Nadege Murphy) Rheumatology Care Team: None on file Recent Office Visits - This Specialty 12/25/2023 Systemic lupus erythematosus, unspecified SLE type, unspecified organ involvement status (HCC) Rheumatology Nadege Murphy DO 10/13/2023 Osteopenia, unspecified location [facility] Julia Ann PA-C 04/10/2023 Systemic lupus erythematosus, unspecified SLE type, unspecified organ involvement status (HCC) Rheumatology Nadege Murphy DO Upcoming Rheumatology Appointments - Next 365 Days Visit Type Date Time Department ARETHA EST BONE 03/15/2024 2:30 PM BONE MAIN Last Ophthalmology Check for Plaquenil (Hydroxychloroquine) Last OCT Macula Exam No resulted procedures found. Last Visual Field Exam No resulted procedures found. CBC: Latest Ref Rng & Units 04/22/2023 12/28/2023 CBC WBC 3.70 - 11.00 k/uL 6.47 7.04 Hemoglobin 11.5 - 15.5 g/dL 12.3 13.8 Hematocrit 36.0 - 46.0 % 37.0 42.0 Platelet Count 150 - 400 k/uL 248 220 Abs Neut (ANC) 1.45 - 7.50 k/uL 4.31 4.47 Abs Lymph 1.00 - 4.00 k/uL 1.28 1.42 Vitamin D: Latest Ref Rng & Units 02/04/2023 10/13/2023 Vitamin D Vitamin D 25 Hydroxy 31.0 - 80.0 ng/mL 52.0 43.4 LFT: Latest Ref Rng & Units 10/13/2023 12/28/2023 CMP Sodium 136 - 144 mmol/L 143 142 Potassium 3.7 - 5.1 mmol/L 4.6 3.7 Chloride 97 - 105 mmol/L 107 107 CO2 22 - 30 mmol/L 24 27 Glucose 74 - 99 mg/dL 101 130 BUN 7 - 21 mg/dL 29 29 Creatinine 0.58 - 0.96 mg/dL 1.04 1.07 Calcium 8.5 - 10.2 mg/dL 9.6 10.2 AST 13 - 35 U/L 25 26 ALT 7 - 38 U/L 24 24 Alkaline Phosphatase 34 - 123 U/L 101 114 Hepatic Function: Creatinine: Latest Ref Rng & Units 10/13/2023 12/28/2023 Creatinine Creatinine 0.58 - 0.96 mg/dL 1.04 1.07 ESR/CRP: None on file in the last 6 months Uric Acid: None on file in the last 6 months Open Standing (Multiple Instance) Lab Orders None Open Future (Single Instance) Lab Orders None documented in this encounter [facility] 03-04-2024 Telephone encounter Note Spoke to the patient. Refill was sent to [facility] around 2:30 pm today. Pt verbalized understanding. Bang Spears RN [facility] 03-04-2024 Miscellaneous Notes Spoke to the patient. Refill was sent to [facility] in [place] around 2:30 pm today. Pt verbalized understanding. Bang Spears RN documented in this encounter [facility] 03-04-2024 Telephone encounter Note Patient has two pills left Change of pharmacy Prescription Refill Information The patient has been identified by name and date of : Yes Caregiver verified no other encounters exist for this prescription request: Yes Caregiver confirmed with patient/requestor that no other refills are due, in the near future, with this provider at this time: Yes The last office visit in the department: 12/22/23 Does the patient have a future office visit with this provider/department: Yes Requested Prescriptions Pending Prescriptions Disp Refills Mesalamine (LIALDA) 1.2 gram EC tablet 360 tablet 1 Sig: Take 4 tablets by mouth once daily. Kath Kenney March 04, 2024 10:47 AM [facility] 03-04-2024 Miscellaneous Notes Patient has two pills left Change of pharmacy Prescription Refill Information The patient has been identified by name and date of : Yes Caregiver verified no other encounters exist for this prescription request: Yes Caregiver confirmed with patient/requestor that no other refills are due, in the near future, with this provider at this time: Yes The last office visit in the department: 12/22/23 Does the patient have a future office visit with this provider/department: Yes Requested Prescriptions Pending Prescriptions Disp Refills Mesalamine (LIALDA) 1.2 gram EC tablet 360 tablet 1 Sig: Take 4 tablets by mouth once daily. Kath Kenney March 04, 2024 10:47 AM documented in this encounter [facility] 02-23-2024 History of Present illness Narrative Since your last infusion, have you: Had any major change in your health (including new diagnosis of cancer, COPD or cogestive heart failure? No Been hospitalized? No Had any infections? No Taking antibiotics/antivirals/antifungal s for current infection? No Had surgery or [...] open sores? No documented in this encounter [facility] 02-22-2024 Telephone encounter Note Spoke with patient on the phone and confirmed scheduled infusion for tomorrow. Denies s/s of infection. [facility] 02-22-2024 Miscellaneous Notes Spoke with patient on the phone and confirmed scheduled infusion for tomorrow. Denies s/s of infection. documented in this encounter [facility] 02-17-2024 Telephone encounter Note Pharmacy calls in requesting the following refill(s): Requested Prescriptions Pending Prescriptions Disp Refills pantoprazole DR (PROTONIX) 40 mg tablet [Pharmacy Med Name: Pantoprazole Sodium 40 MG Oral Tablet Delayed Release] 180 tablet 0 Sig: Take 1 tablet by mouth twice daily Last OV:12-22-23 Next OV:05-03-24 Last Procedure:COLON 04-02-23 Next Procedure:NA Selin Frias MA [facility] 02-17-2024 Miscellaneous Notes Pharmacy calls in requesting the following refill(s): Requested Prescriptions Pending Prescriptions Disp Refills pantoprazole DR (PROTONIX) 40 mg tablet [Pharmacy Med Name: Pantoprazole Sodium 40 MG Oral Tablet Delayed Release] 180 tablet 0 Sig: Take 1 tablet by mouth twice daily Last OV:12-22-23 Next OV:05-03-24 Last Procedure:COLON 04-02-23 Next Procedure:BERTIN Frias MA documented in this encounter [facility] 02-16-2024 Miscellaneous Notes Patient needs parking placard, would like to have tomorrow so she can get placards by end of week Okay. Letter printed to warehouse picker. Please set up a general recheck Called for warehouse picker documented in this encounter [facility] 02-16-2024 Telephone encounter Note Patient needs parking placard, would like to have tomorrow so she can get placards by end of week [facility] 02-16-2024 Telephone encounter Note Okay. Letter printed to warehouse picker. Please set up a general recheck [facility] 02-16-2024 Telephone encounter Note Called for warehouse picker [facility] 02-16-2024 History of Present illness Narrative Subjective SUBJECTIVE: Patient ID: Jesus Wolf is a 68 y.o. female who presents for a Medicare Annual Wellness exam. HPI The following portions of the patient's history were reviewed and updated as appropriate: allergies, current medications, past family history, past medical history, past social history, past surgical history and problem list. AWV FLOWSHEET : Lifestyle Assessment Do you smoke or use smokeless tobacco?: No If you smoke or use smokeless tobacco, are you ready to quit?: NA Are you exposed to secondhand smoke?: No On average, how many drinks of alcohol do you consume in a week?: None Do you exercise for 30 or more minutes on average at least 3 days a week?: Sometimes Do you have any tooth, denture, or oral problems?: No Do you snore or has anyone told you that you snore?: No Do you try to eat a balanced diet?: Yes Do you experience leakage of urine, also known as urinary incontinence?: Never Do you have difficulty performing any of these activities? (check all that apply): (!) Walking Do you have difficulty performing any of these activities? (check all that apply): None Fall Risk Fall Risk Assessment Completed?: Yes Have you fallen in the past year?: No How many times?: N/A Were you injured?: No Are you worried about falling?: (!) Yes Do you feel unsteady when standing or walking?: (!) Yes Risk Stratification: Moderate Risk Depression Screening Little interest or pleasure in doing things: (!) Several days Feeling down, depressed, or hopeless: (!) Several days Trouble falling or staying asleep, or sleeping too much: (!) More than half the days Feeling tired or having little energy: (!) More than half the days Poor appetite or overeating: Not at all Feeling bad about yourself - or that you are a failure or have let yourself or your family down: Not at all Trouble concentrating on things, such as reading the newspaper or watching television: Not at all Moving or speaking so slowly that other people could have noticed. Or the opposite - being so fidgety or restless that you have been moving around a lot more than usual: Not at all Thoughts that you would be better off , or of hurting yourself in some way: Not at all PEG Scale What number best describes your pain on average in the past week?: 8 What number best describes how, during the past week, pain has interfered with your enjoyment of life?: 6 What number best describes how, during the past week, pain has interfered with your general activity?: 6 PEG Pain Total Score: 6.67 Safety Assessment Do you have throw rugs on the floor?: No Do you feel safe at your home?: Yes Do you feel unsteady when walking?: (!) Yes Are you having difficulty with driving?: No Do you have trouble seeing?: No What assistive device do you use? (check all that apply): None Hearing Assessment Do you strain or struggle to hear/understand conversations?: No Do you have trouble hearing the television or radio when others do not?: No Does your family ever voice concerns about your hearing?: No Do you wear hearing aid/s?: No Personal Health During the past 4 weeks, how would you rate your overall health?: (!) Fair Do you understand how to take all of your medications?: Yes How confident are you that you can control and manage most of your health problems?: Very confident In the past 12 months, how many times have you been hospitalized?: (!) 2 or more End of Life Planning Do you have a living will?: (!) No Do you have a durable power of deputy prosecuting attorney?: (!) No Cognitive Screening Do you have trouble remembering or recalling facts or events?: No Do family members or caregivers report that you have difficulty remembering things?: No Clock Drawing Test: Normal REVIEW OF SYSTEMS: Review of Systems Objective PHYSICAL EXAMINATION: Vitals: 02/16/24 0904 Weight: 119.9 kg (264 lb 4.8 oz) Height: 170.2 cm (5' 7 ) Physical Exam Assessment/Plan ASSESSMENT/PLAN Encounter Diagnoses Name Primary? Medicare annual wellness visit, subsequent Yes Screening for depression Health maintenance discussed. Depression screen was positive. She is on antidepressant therapy. It was mild. Continue current regimen. Cognitive evaluation did not reveal any impairment. She does not have advanced directives in place. She was encouraged to do so. Return in about 1 year (around 02/15/2025). She is due for a general recheck of multiple problems anytime documented in this encounter [facility] 02-15-2024 History of Present illness Narrative Subjective Jesus Wolf is a 68 y.o. female. Chief Complaint: Atrial Fibrillation 68 year old female presents today for 1 month follow up post Afib Ablation. PMH includes: MONI, Systemic lupus, in remission, on medical therapy with hydroxychloroquine, morbid obesity, hyperlipidemia, HTN, History of hypercalcemia caused by hyperparathyroidism status post parathyroidectomy last year at the [facility] with success, Ascending aortic aneurysm measured 4.6 cm from echocardiogram September 2021, follow-up echocardiogram in 2021 measured only 3.8 cm, A-fib treatment history: The initial diagnosis date of atrial fibrillation (A-fib) is uncertain, though it has been recognized since at least 2017. The patient has persistent A-fib and atypical atrial flutter, with previous cardioversions unsuccessful. She underwent a pulmonary vein isolation (PVI) with additional lesions in May 2019 and an atypical atrial flutter ablation in August 2019. Medications tried include Tikosyn (discontinued due to ventricular tachycardia), Amiodarone (following A-fib ablation). She was noted to be back in A-flutter 09/17/23 and started on Flecainide 100mg twice daily, and Metoprolol 150mg daily. Cardioversion was scheduled, but she reverted back to NSR spontaneously. She uses a Enertiv mobile device and states she is going in and out of rhythm more often. Flecainide was increased to 150mg BID on 10/29/23. Symptoms during atrial fibrillation episodes include fatigue, palpitations, and shortness of breath. Now s/p Afib RFA with Dr. Chino 01/05/2024 ECG 02/15/2024 NSR HR 69 bpm TODAY patient presents for one 1 month follow-up post ablation. She had a couple episodes of A-fib immediately after the procedure, however she has noticed that she has been feeling better. Her shortness of breath has improved and she feels more energetic. She is able to do more activity than she previously could. She is set up for watchman implant next month. BP 128/80 (BP Location: Right arm, Patient Position: Sitting) Pulse 68 Ht 1.702 m (5' 7 ) Wt 120 kg (265 lb 7 oz) SpO2 96% BMI 41.57 kg/m Current Outpatient Medications on File Prior to Visit Medication Sig Dispense Refill alendronate (Fosamax) 70 mg tablet Take 1 tablet (70 mg) by mouth every 7 days. On Thursday. Take in the morning with a full glass of water, on an empty stomach, and do not take anything else by mouth or lie down for the next 30 min. amiodarone (Pacerone) 200 mg tablet Take 1 tablet (200 mg) by mouth once daily. Do not start before November 24, 2023. 30 tablet 5 atorvastatin (Lipitor) 40 mg tablet Take 1 tablet (40 mg) by mouth once daily. 90 tablet 3 belimumab (Benlysta) 120 mg recon soln IV injection Infuse into a venous catheter every 8 (eight) weeks. Bifidobacterium infantis (ALIGN ORAL) Take 1 tablet by mouth once daily. celecoxib (CeleBREX) 200 mg capsule Take 1 capsule (200 mg) by mouth 2 times a day. cholecalciferol (Vitamin D-3) 50 mcg (2,000 unit) capsule Take 3 capsules (150 mcg) by mouth once daily. colestipol (Colestid) 1 gram tablet Take 3 tablets (3 g) by mouth 2 times a day. Take at least 1 hour after or 4 hours before other medications. Eliquis 5 mg tablet Take 1 tablet by mouth twice daily 180 tablet 3 ferrous sulfate 325 (65 Fe) MG tablet Take 1 tablet by mouth once daily with breakfast. furosemide (Lasix) 20 mg tablet Take 2 tablets (40 mg) by mouth once daily. hydroxychloroquine (Plaquenil) 200 mg tablet Take 1 tablet (200 mg) by mouth 2 times a day. levothyroxine (Synthroid, Levoxyl) 50 mcg tablet Take 1 tablet (50 mcg) by mouth once daily in the morning. Take before meals. mesalamine (Lialda) 1.2 gram EC tablet Take 2 tablets (2.4 g) by mouth 2 times a day. metoprolol succinate XL (Toprol-XL) 50 mg 24 hr tablet Take 1 tablet (50 mg) by mouth once daily. Take one tablet by mouth every morning and 2 tablets by mouth every evening multivitamin with minerals iron-free (Centrum Silver) Take 1 tablet by mouth once daily. pantoprazole (ProtoNix) 40 mg EC tablet Take 1 tablet (40 mg) by mouth 2 times a day. Do not crush, chew, or split. venlafaxine XR (Effexor-XR) 150 mg 24 hr capsule Take 1 capsule (150 mg) by mouth once daily. Do not crush or chew. No current facility-administered medications on file prior to visit. Review of Systems Constitutional: Negative for diaphoresis, fever and malaise/fatigue. HENT: Negative for congestion and sore throat. Eyes: Negative for blurred vision and double vision. Cardiovascular: Negative for chest pain, dyspnea on exertion, irregular heartbeat, leg swelling, near-syncope, orthopnea, palpitations, paroxysmal nocturnal dyspnea and syncope. Respiratory: Negative for cough, hemoptysis, shortness of breath, snoring and sputum production. Hematologic/Lymphatic: Negative for bleeding problem. Skin: Negative for rash. Musculoskeletal: Negative for falls, joint pain and myalgias. Gastrointestinal: Negative for abdominal pain, diarrhea, nausea and vomiting. Neurological: Negative for dizziness, headaches, light-headedness and weakness. All other systems reviewed and are negative. Objective Constitutional: Appearance: Healthy appearance. Not in distress. Eyes: Conjunctiva/sclera: Conjunctivae normal. Pupils: Pupils are equal, round, and reactive to light. HENT: Mouth/Throat: Pharynx: Oropharynx is clear. Pulmonary: Effort: Pulmonary effort is normal. Breath sounds: Normal breath sounds. No wheezing. No rhonchi. No rales. Cardiovascular: PMI at left midclavicular line. Normal rate. Regular rhythm. Murmurs: There is no murmur. No gallop. Pulses: Intact distal pulses. Edema: Peripheral edema absent. Abdominal: General: Bowel sounds are normal. Palpations: Abdomen is soft. Tenderness: There is no abdominal tenderness. Musculoskeletal: Normal range of motion. General: No tenderness. Skin: General: Skin is warm and dry. Comments: Right groin puncture site healed Neurological: General: No focal deficit present. Mental Status: Alert and oriented to person, place and time. Lab Review: Lab Results Component Value Date NA 141 01/04/2024 K 4.5 01/04/2024 CL 105 01/04/2024 CO2 29 01/04/2024 BUN 24 (H) 01/04/2024 CREATININE 0.99 01/04/2024 GLUCOSE 90 01/04/2024 CALCIUM 9.6 01/04/2024 Lab Results Component Value Date WBC 6.9 01/04/2024 HGB 14.5 01/04/2024 HCT 43.9 01/04/2024 MCV 97 01/04/2024 PLT 258 01/04/2024 Assessment/Plan The encounter diagnosis was Paroxysmal atrial fibrillation (Multi). Patient doing well 1 month post A-fib ablation. She continues on amiodarone without any symptoms. We will plan for antiarrhythmic therapy until about 3 to 6 months post ablation. We discussed her watchman implant and I answered her questions about the procedure. She will stop Eliquis 2 weeks prior to the implant and start 75 mg of Plavix and 81 mg of aspirin daily. We discussed normal symptoms that can happen post ablation and when she should go to the ED or have an office visit. Patient expresses understanding, all questions asked and answered. Continue current medications, until changes as above prior to her watchman Follow-up with me in 2 to 3 months and we will discuss when to stop her amiodarone. Patient can call the office with any questions or concerns. documented in this encounter [facility] Work Phone: 01-08-2024 Telephone encounter Note Last OV 12/22/2023 Next OV 05/03/2024 Last procedure 04/02/23-colonoscopy, EGD 09/12/21 No upcoming procedures scheduled Pharmacy calls in requesting the following refill(s): Requested Prescriptions Pending Prescriptions Disp Refills pantoprazole DR (PROTONIX) 40 mg tablet [Pharmacy Med Name: Pantoprazole Sodium 40 MG Oral Tablet Delayed Release] 180 tablet 0 Sig: TAKE 1 BY MOUTH TWICE DAILY [facility] 01-08-2024 Miscellaneous Notes Last OV 12/22/2023 Next OV 05/03/2024 Last procedure 04/02/23-colonoscopy, EGD 09/12/21 No upcoming procedures scheduled Pharmacy calls in requesting the following refill(s): Requested Prescriptions Pending Prescriptions Disp Refills pantoprazole DR (PROTONIX) 40 mg tablet [Pharmacy Med Name: Pantoprazole Sodium 40 MG Oral Tablet Delayed Release] 180 tablet 0 Sig: TAKE 1 BY MOUTH TWICE DAILY documented in this encounter [facility] 01-05-2024 Hospital Discharge instructions John Mora PA-C - 01/05/2024 8:22 AM EDT INSTRUCTIONS AFTER ABLATION PROCEDURE: * You will need to continue blood thinner (Eliquis) until instructed otherwise. It is important not to interrupt blood thinner for any reason (other than an emergency) during the first 30 days after ablation. * You will be on Pantoprazole (a heartburn medicine) for 4 weeks to protect the esophagus as it can become irritated with ablation. It is very important that you take this medication. * All other medications will generally remain the same unless you are told otherwise. Resume taking your home medications today (including blood thinner) as listed on the discharge instructions. * In the first week post-ablation you should take it easy. No heavy lifting or heavy exercise, no treadmill. You can use the stairs if needed but go slowly and minimize the number of times up and down. * Some minor bruising is common at each groin access site with minor soreness as if you had banged the area. Bruising may occasionally be seen to extend down the leg. This is normal as is an occasional small quarter sized bump in the area. If larger swelling or more significant pain occurs at the area, please contact the office or go the nearest Emergency Room. * You may have some minor chest pain for the next week or so. The pain will often worsen with a deep breath and be better when leaning forward. This is pericardial chest pain from the ablation and is generally not of concern. It should resolve within a week although it might increase for a day or so after the ablation. * If you develop unexplained fevers exceeding 100 degrees anytime within the first 3 weeks post-ablation, you need to contact the office. Low grade fevers of around 99 degrees are common in the first day or so post-ablation. * Atrial fibrillation (AFib) can recur in all patients who undergo this ablation for up to 4-8 weeks post-ablation. The ablation itself can cause inflammation (pericarditis) in the atria and this can cause AFib. Some patients will actually experience an increased amount of atrial arrhythmia early after ablation. Approximately 1/3 of patients will have this early recurrence of AFib. Medications should be continued and your heart rate controlled. Nothing else needs be done initially except waiting as in many cases these episodes of AFib will prove self limited. * Continue to follow up with your primary care physician, primary film editor supervisor, and any other specialists you normally see. * No driving for 2 days post procedure (IF you were driving prior to procedure) *Diet: Heart healthy Call Provider If: Breathing faster than normal. Fever of 100.4 F (38 C) or higher. Chills. Any new concerning symptoms. Passing out. Patient Instructions, Next 24 hours: DO NOT drive a car, operate machinery or power tools. It is recommended that a responsible adult be with you for the first 24 hours. DO NOT drink any alcoholic drinks or take any non-prescriptive medications that contain alcohol for the first 24 hours. DO NOT make any important decisions for the first 24 hours. Activity: You are advised to go directly home from the hospital. DO NOT lift anything heavier than 10 pounds for one week, this allows for proper healing of the groin. No excessive exercise or treadmill use for one week. You may walk and do stairs, slowly. No sexual activities for 24 hours after you arrive home. Wound Care: If slight bleeding should occur at groin site, lie down and have someone apply firm pressure just above the puncture site for 5 minutes. If it continues or is profuse, call 911. Always notify your doctor if bleeding occurs. Keep site clean and dry. Let air dry or you may use a simple bandaid. Gently cleanse the puncture site in your groin with soap and water only. You may experience some tenderness, bruising or minimal inflammation. If you have any concerns, you may contact the EP Lab or if any of these symptoms become excessive, contact your chain testing machine operator or go to the emergency room. No tub baths, soaking, hot tubs, or swimming for one week. May shower the next day after your procedure. Other Instructions: If you have any questions about the effects of the sedative drugs or groin care, call the physician who performed your procedure. FOLLOW UP: 1) Primary care physician 2 weeks--call to schedule 2) Christian Kaur CNP ( Electrophysiology) 1 month after ablation Conduit Mechanic will notify you of appointment. If you haven't heard in 1 week, please call [phone] documented in this encounter [facility] Work Phone: 01-05-2024 Hospital Note Formatting of t his note might be different from the original. [facility] Work Phone: 01-05-2024 Miscellaneous Notes documented in this encounter [facility] Work Phone: 01-05-2024 History of Present illness Narrative Pharmacy Medication History Review Jesus Wolf is a 68 y.o. female admitted for Persistent atrial fibrillation (Multi). Pharmacy reviewed the patient's [id number] medications and allergies for accuracy. The list below reflects the updated FLASH DESIGNER list. Comments regarding how patient may be taking medications differently can be found in the Admit Orders Activity Prior to Admission Medications Prescriptions Last Dose Informant Bifidobacterium infantis (ALIGN ORAL) Past Week Self Sig: Take 1 tablet by mouth once daily. Eliquis 5 mg tablet 01/04/2024 Self Sig: Take 1 tablet by mouth twice daily alendronate (Fosamax) 70 mg tablet 01/03/2024 Self Sig: Take 1 tablet (70 mg) by mouth every 7 days. On Thursday. Take in the morning with a full glass of water, on an empty stomach, and do not take anything else by mouth or lie down for the next 30 min. amiodarone (Pacerone) 200 mg tablet 01/04/2024 Self Sig: Take 1 tablet (200 mg) by mouth once daily. Do not start before November 24, 2023. atorvastatin (Lipitor) 40 mg tablet 01/04/2024 Self Sig: Take 1 tablet (40 mg) by mouth once daily. belimumab (Benlysta) 120 mg recon soln IV injection 12/24/2023 Self Sig: Infuse into a venous catheter every 8 (eight) weeks. celecoxib (CeleBREX) 200 mg capsule 01/04/2024 Self Sig: Take 1 capsule (200 mg) by mouth 2 times a day. cholecalciferol (Vitamin D-3) 50 mcg (2,000 unit) capsule 01/04/2024 Self Sig: Take 3 capsules (150 mcg) by mouth once daily. colestipol (Colestid) 1 gram tablet 01/04/2024 Self Sig: Take 3 tablets (3 g) by mouth 2 times a day. Take at least 1 hour after or 4 hours before other medications. ferrous sulfate 325 (65 Fe) MG tablet 01/04/2024 Self Sig: Take 1 tablet by mouth once daily with breakfast. furosemide (Lasix) 20 mg tablet 01/04/2024 Self Sig: Take 2 tablets (40 mg) by mouth once daily. hydroxychloroquine (Plaquenil) 200 mg tablet 01/04/2024 Self Sig: Take 1 tablet (200 mg) by mouth 2 times a day. levothyroxine (Synthroid, Levoxyl) 50 mcg tablet 01/04/2024 Self Sig: Take 1 tablet (50 mcg) by mouth once daily in the morning. Take before meals. mesalamine (Lialda) 1.2 gram EC tablet 01/04/2024 Self Sig: Take 2 tablets (2.4 g) by mouth 2 times a day. metoprolol succinate XL (Toprol-XL) 50 mg 24 hr tablet 01/04/2024 Self Sig: Take 1 tablet (50 mg) by mouth once daily. Take one tablet by mouth every morning and 2 tablets by mouth every evening multivitamin with minerals iron-free (Centrum Silver) 01/04/2024 Self Sig: Take 1 tablet by mouth once daily. pantoprazole (ProtoNix) 40 mg EC tablet 01/04/2024 Self Sig: Take 1 tablet (40 mg) by mouth 2 times a day. Do not crush, chew, or split. venlafaxine XR (Effexor-XR) 150 mg 24 hr capsule 01/04/2024 Self Sig: Take 1 capsule (150 mg) by mouth once daily. Do not crush or chew. Facility-Administered Medications: None The list below reflects the updated allergy list. Please review each documented allergy for additional clarification and justification. Allergies Reviewed by Charu Chavez, LisaD on 01/05/2024 Severity Reactions Comments Codeine Not Specified Unknown Diphth,pertus(acell),tetanus Not Specified Unknown Dofetilide Not Specified Unknown Epinephrine Not Specified Unknown Iodinated Contrast Media Not Specified Unknown Prochlorperazine Not Specified Unknown Sulfa (sulfonamide Antibiotics) Not Specified Swelling, Nausea/vomiting, Unknown Tetanus Vaccines And Toxoid Not Specified Unknown Patient was unable to be assessed for M2B at discharge. Pharmacy has been updated to [facility]. M2B service not offered prior to surgery, please reassess prior to patient discharge if Meds to Beds is desired. Sources used to complete the med history include: Patient interview - had list of medications/ Pharmacy - [facility]/ chart review - Cardiology visit 11/16/23, [facility] clinical summary Charu Chavez PharmD Transitions of Care Pharmacist [facility] Please reach out via Secure Chat for questions, or if no response call [employer] or [employer] documented in this encounter [facility] Work Phone: 01-05-2024 History and physical note History Of Present Illness Jesus Wolf is a 68 y.o. female with PMH of MONI, Systemic lupus, in remission, on medical therapy with hydroxychloroquine. Managed by the [facility], morbid obesity, hyperlipidemia, HTN, History of hypercalcemia caused by hyperparathyroidism status post parathyroidectomy last year at the [facility] with success, Ascending aortic aneurysm measured 4.6 cm from echocardiogram September 2021, follow-up echocardiogram in 2021 measured only 3.8 cm, A-fib. ALSO PMHx OF POSTMENOPAUSAL BLEEDING, ANEMIA AND EPISTAXIS. A-fib treatment history: The initial diagnosis date of atrial fibrillation (A-fib) is uncertain, though it has been recognized since at least 2017. The patient has persistent A-fib and atypical atrial flutter, with previous cardioversions unsuccessful. She underwent a pulmonary vein isolation (PVI) with additional lesions in May 2019 and an atypical atrial flutter ablation in August 2019. Medications tried include Tikosyn (discontinued due to ventricular tachycardia), Amiodarone (following A-fib ablation). She was noted to be back in A-flutter 09/17/23 and started on Flecainide 100mg twice daily, and Metoprolol 150mg daily. Cardioversion was scheduled, but she reverted back to NSR spontaneously. She uses a Enertiv mobile device and states she is going in and out of rhythm more often. Flecainide was increased to 150mg BID on 10/29/23. Symptoms during atrial fibrillation episodes include fatigue, palpitations, and shortness of breath. Angelica held X 3 days 11/09 due to nosebleed. Today patient c/o dyspnea on exertion and fatigue. TESTING -ECHO: (09/17/22) CONCLUSIONS: 1. Left ventricular systolic function is [...] 36 mmHg. 8. Mild aortic valve regurgitation. - NUC STRESS TEST: 08/22/22 IMPRESSION: Normal Lexiscan Myoview cardiac perfusion stress test. No evidence of ischemia or myocardial infarction by perfusion imaging. Normal left ventricular systolic function, ejection fraction 62% Past Medical History Past Medical History: Diagnosis Date Unspecified diastolic (congestive) heart failure (Multi) 12/06/2019 Diastolic heart failure Surgical History Past Surgical History: Procedure Laterality Date OTHER SURGICAL HISTORY 08/01/2022 Foot surgery OTHER SURGICAL HISTORY 08/01/2022 Tonsillectomy OTHER SURGICAL HISTORY 08/01/2022 Appendectomy OTHER SURGICAL HISTORY 08/01/2022 Hip replacement OTHER SURGICAL HISTORY 08/01/2022 Cyst excision PARATHYROID GLAND SURGERY Social History She reports that she has never smoked. She has never used smokeless tobacco. She reports that she does not drink alcohol and does not use drugs. Family History Family History Family history unknown: Yes Allergies Codeine; Diphth,pertus(acell),tetanus; Dofetilide; Epinephrine; Iodinated contrast media; Prochlorperazine; Sulfa (sulfonamide antibiotics); and Tetanus vaccines and toxoid Review of Systems All other systems reviewed and are negative. Physical Exam Vitals and nursing note reviewed. Constitutional: Appearance: Normal appearance. She is normal weight. HENT: Head: Normocephalic and atraumatic. Right Ear: Tympanic membrane normal. Left Ear: Tympanic membrane normal. Nose: Nose normal. Mouth/Throat: Mouth: Mucous membranes are moist. Pharynx: Oropharynx is clear. Eyes: Extraocular Movements: Extraocular movements intact. Conjunctiva/sclera: Conjunctivae normal. Pupils: Pupils are equal, round, and reactive to light. Cardiovascular: Rate and Rhythm: Normal rate and regular rhythm. Pulses: Normal pulses. Heart sounds: Normal heart sounds. Pulmonary: Effort: Pulmonary effort is normal. Breath sounds: Normal breath sounds. Abdominal: General: Abdomen is flat. Bowel sounds are normal. Palpations: Abdomen is soft. Musculoskeletal: General: Normal range of motion. Cervical back: Normal range of motion and neck supple. Skin: General: Skin is warm. Neurological: General: No focal deficit present. Mental Status: She is alert and oriented to person, place, and time. Mental status is at baseline. Last Recorded Vitals There were no vitals taken for this visit. Relevant Results Assessment/Plan Principal Problem: Persistent atrial fibrillation (Multi) Active Problems: Atypical atrial flutter (Multi) RFA/PVI for persistnet AF and atypical AFL I spent 60 minutes in the professional and overall care of this patient. Khoa Key MD [facility] Work Phone: 01-05-2024 History and physical note History Of Present Illness Jesus Wolf is a 68 y.o. female with PMH of MONI, Systemic lupus, in remission, on medical therapy with hydroxychloroquine. Managed by the [facility], morbid obesity, hyperlipidemia, HTN, History of hypercalcemia caused by hyperparathyroidism status post parathyroidectomy last year at the [facility] with success, Ascending aortic aneurysm measured 4.6 cm from echocardiogram September 2021, follow-up echocardiogram in 2021 measured only 3.8 cm, A-fib. ALSO PMHx OF POSTMENOPAUSAL BLEEDING, ANEMIA AND EPISTAXIS. A-fib treatment history: The initial diagnosis date of atrial fibrillation (A-fib) is uncertain, though it has been recognized since at least 2017. The patient has persistent A-fib and atypical atrial flutter, with previous cardioversions unsuccessful. She underwent a pulmonary vein isolation (PVI) with additional lesions in May 2019 and an atypical atrial flutter ablation in August 2019. Medications tried include Tikosyn (discontinued due to ventricular tachycardia), Amiodarone (following A-fib ablation). She was noted to be back in A-flutter 09/17/23 and started on Flecainide 100mg twice daily, and Metoprolol 150mg daily. Cardioversion was scheduled, but she reverted back to NSR spontaneously. She uses a Enertiv mobile device and states she is going in and out of rhythm more often. Flecainide was increased to 150mg BID on 10/29/23. Symptoms during atrial fibrillation episodes include fatigue, palpitations, and shortness of breath. Eliquis held X 3 days 11/09 due to nosebleed. Today patient c/o dyspnea on exertion and fatigue. TESTING -ECHO: (09/17/22) CONCLUSIONS: 1. Left ventricular systolic function is [...] 36 mmHg. 8. Mild aortic valve regurgitation. - NUC STRESS TEST: 08/22/22 IMPRESSION: Normal Lexiscan Myoview cardiac perfusion stress test. No evidence of ischemia or myocardial infarction by perfusion imaging. Normal left ventricular systolic function, ejection fraction 62% Past Medical History Past Medical History: Diagnosis Date Unspecified diastolic (congestive) heart failure (Multi) 12/06/2019 Diastolic heart failure Surgical History Past Surgical History: Procedure Laterality Date OTHER SURGICAL HISTORY 08/01/2022 Foot surgery OTHER SURGICAL HISTORY 08/01/2022 Tonsillectomy OTHER SURGICAL HISTORY 08/01/2022 Appendectomy OTHER SURGICAL HISTORY 08/01/2022 Hip replacement OTHER SURGICAL HISTORY 08/01/2022 Cyst excision PARATHYROID GLAND SURGERY Social History She reports that she has never smoked. She has never used smokeless tobacco. She reports that she does not drink alcohol and does not use drugs. Family History Family History Family history unknown: Yes Allergies Codeine; Diphth,pertus(acell),tetanus; Dofetilide; Epinephrine; Iodinated contrast media; Prochlorperazine; Sulfa (sulfonamide antibiotics); and Tetanus vaccines and toxoid Review of Systems All other systems reviewed and are negative. Physical Exam Vitals and nursing note reviewed. Constitutional: Appearance: Normal appearance. She is normal weight. HENT: Head: Normocephalic and atraumatic. Right Ear: Tympanic membrane normal. Left Ear: Tympanic membrane normal. Nose: Nose normal. Mouth/Throat: Mouth: Mucous membranes are moist. Pharynx: Oropharynx is clear. Eyes: Extraocular Movements: Extraocular movements intact. Conjunctiva/sclera: Conjunctivae normal. Pupils: Pupils are equal, round, and reactive to light. Cardiovascular: Rate and Rhythm: Normal rate and regular rhythm. Pulses: Normal pulses. Heart sounds: Normal heart sounds. Pulmonary: Effort: Pulmonary effort is normal. Breath sounds: Normal breath sounds. Abdominal: General: Abdomen is flat. Bowel sounds are normal. Palpations: Abdomen is soft. Musculoskeletal: General: Normal range of motion. Cervical back: Normal range of motion and neck supple. Skin: General: Skin is warm. Neurological: General: No focal deficit present. Mental Status: She is alert and oriented to person, place, and time. Mental status is at baseline. Last Recorded Vitals There were no vitals taken for this visit. Relevant Results Assessment/Plan Principal Problem: Persistent atrial fibrillation (Multi) Active Problems: Atypical atrial flutter (Multi) RFA/PVI for persistnet AF and atypical AFL I spent 60 minutes in the professional and overall care of this patient. Khoa Key MD documented in this encounter [facility] Work Phone: 12-29-2023 History of Present illness Narrative [facility] SERVICE DATE: December 29, 2023 SERVICE TIME: 9:27 AM REASON FOR CONSULT: I am asked to see this patient in consultation for my opinion regarding lupus nephritis. My recommendations will be communicated by way of shared medical record, fax, or mail. 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 Recalls being on spironolactone - stopped by cardiology 2 months ago due to relatively low. 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 so spironolactone was stopped PAST MEDICAL HISTORY PAST MEDICAL HISTORY Diagnosis Date Arrhythmia Atrial fibrillation (HCC) on coumadin Herniated intervertebral disk HTN (hypertension) Hyperlipemia Kidney disease MONI (obstructive sleep apnea) no longer using CPAP since 60 lb weight loss Other acute pancreatitis with uninfected necrosis SLE (systemic lupus erythematosus) (HCC) Sleep apnea 07/29/2012 PAST SURGICAL HISTORY PAST SURGICAL HISTORY Procedure Laterality Date APPENDECTOMY CARPAL TUNNEL RIGHT WRIST surgical correction COLONOSCOPY 05/10/2019 [facility] COLONOSCOPY GEN ANES 07/23/2020 Dr. Frances/Diverticulosis/Hemorrhoids/ Ulcerative Colitis/Rpt in 2 yrs. COLONOSCOPY SCREENING 03/2023 EGD EUS 01/11/2020 [facility] LASIK Right prior to 1999 MRI PANC/JEANIE WO/W IVCON 12/20/2019 OVARIAN CYSTECTOMY PAST SURGICAL HISTORY OF 07/2013 bilateral foot procedure, Sherry PAST SURGICAL HISTORY OF Ablation X2 TONSILLECTOMY HX FAMILY HISTORY FAMILY HISTORY Problem Relation Age of Onset Alzheimer's Disease Father Hypertension Father Cataract Mother Hypertension Mother Colon Cancer Mother Cataract Sister Hypertension Sister Colon Cancer Paternal Uncle SOCIAL HISTORY Social History Tobacco Use Smoking status: Never Smokeless tobacco: Never Vaping Use Vaping Use: Never used Substance Use Topics Alcohol use: Yes Comment: very rare Drug use: No Comment: denies tx for drug/alcohol abuse in the past. CURRENT MEDICATIONS As reviewed with patient, and recalled by patient colestipol (COLESTID) 1 gram tablet Take 3 tablets by mouth two times a day. ferrous sulfate (IRON) 325 mg (65 mg iron) tablet Take 1 tablet by mouth once daily. amiodarone (PACERONE) 200 mg tablet Take 1 tablet by mouth every 12 hours. Mesalamine (LIALDA) 1.2 gram EC tablet Take [...] Take 5 mg by mouth twice daily. acetaminophen (TYLENOL) 500 mg tablet Take 1 tablet by mouth every 4 hours as needed for pain. nhsoiaa-fzkcbyehq-brqucnr D3 500 mg-5 mcg (200 unit) per [...] 10 mg by mouth daily at bedtime. Cholecalciferol, Vitamin D3, 2,000 unit cap Take [...] lie down for the next 30 minutes. amoxicillin (AMOXIL) 500 mg capsule Take 4 tablets one hour prior to dental procedure (Patient not taking: Reported on 10/13/2023) MV with Qzo-Xijoytne-Muxsjf (CENTRUM SILVER) 0.4 mg-300 mcg- 250 mcg tab Take 1 tablet by mouth once daily. ALLERGIES ALLERGIES Allergen Reactions Dofetilide Other: See Comments, [...] Comments red spot in area of shot REVIEW OF SYSTEMS: Constitutional: No fever, No chills, No fatigue, No night sweats, No malaise and No weakness Eyes: No complaints, No loss in vision and No photophobia Ear, Nose, and Throat: No complaints, No oral ulcers, No epistaxis and No nasal congestion Cardiovascular: No complaints, No chest pain or pressure, No orthopnea, No dyspnea on exertion, No edema, No palpitations, No dizziness, No lightheadedness and No syncope Respiratory: No complaints, No cough, No hemoptysis, No wheezing and No dyspnea Gastrointestinal: No complaints, No diarrhea, No constipation, No loss of appetite, No nausea, No emesis, No abdominal pain, No melena and No metallic or bitter taste Genitourinary: No complaints, No nocturia, No hesitancy, No frothy urine, No frequency, No pink or red urine, No flank pain, No dysuria, No oliguria, No polyuria, No incontinence and No straining Musculoskeletal: No complaints, No joint pain and No joint swelling, No muscle pain Skin: No complaints, No pruritis, No rash and No ulcers/wounds Neurological: No complaints, No tremor, No headache, No seizures, No numbness, No dysarthria, No facial droop, No paresthesias and No tingling Psychiatric: No complaints, No anxiety and No depression Endocrine: No complaints, No polydipsia, No heat intolerance and No cold intolerance Hematologic:No complaints, No issues with bruising easily and No issues with bleeding easily PHYSICAL EXAMINATION: BP 134/78 (BP Site: Right Arm, BP Position: Sitting, BP Cuff Size: Large Adult) Pulse 67 Ht 170.2 cm (5' 7 ) Wt 119 kg (262 lb 5.6 oz) LMP 07/17/2011 (Within Years) BMI 41.09 kg/m Last 3 Encounter BP Readings: Date: BP: 12/24/2023 150/68 12/22/2023 157/92 10/23/2023 127/76 BP - standardized method Pulse 1 BP #1: 127/79 Pulse #1: 67 beats/min 2 BP #2 : 136/77 Pulse #2 : 68 beats/min 3 BP #3 : 138/78 Pulse #3 : 68 beats/min Average Average BP: 134/78 Average Pulse: 67 beats/min Orthostatic vitals Supine Sitting Standing Standing BP : 117/77 Standing pulse : 102 BP cuff location BP cuff location: Right lower arm BP cuff size BP cuff size: large adult Comments for BP values First BP (right) First BP (left) General appearance/ Constitutional - cooperative,in no acute distress,alert, responsive Skin - No rashes or lesions Eyes - Conjunctivae/corneas clear. Pupils are equally round and reactive to light. Ear, Nose and Throat - Hearing normal, Lips normal, moist mucosa, dentition normal Neck - No bruits. Trachea midline. No jugular venous distension Respiratory - normal respiratory effort, lungs clear to auscultation bilaterally, No wheezing or rhonchi Cardiovascular - regular rate and rhythm, normal S1 and S2, no rubs. No peripheral edema Abdomen - soft, non-tender, non-distended. Normal bowel sounds. No abdominal bruit Musculoskeletal - No joint swelling, deformity, or tenderness. Normocephalic. No clubbing or cyanosis of digits Neurologic - normal sensation, no asterixis Psychiatric - alert and oriented to self, place, time and setting. Normal mood and affect DIAGNOSTIC TESTS REVIEWED FOR TODAY'S VISIT Outside labs and imaging reports, if any were reviewed by sc LABS Creatinine (mg/dL) Date Value 12/28/2023 1.07 10/13/2023 1.04 04/22/2023 1.24 02/04/2023 1.14 06/30/2022 0.96 06/12/2022 1.27 03/13/2022 1.01 12/09/2021 1.02 05/16/2021 0.84 03/25/2021 0.88 12/21/2020 0.77 12/20/2020 1.12 12/19/2020 0.71 12/18/2020 0.72 12/06/2020 0.93 10/04/2020 0.84 06/25/2020 0.96 04/02/2020 0.92 10/21/2019 1.18 08/30/2019 0.70 08/24/2019 0.80 03/09/2019 0.82 03/03/2019 0.93 12/14/2018 0.73 06/30/2018 0.68 05/19/2018 0.85 02/23/2018 0.67 12/01/2017 0.82 BUN (mg/dL) Date Value 12/28/2023 29 10/13/2023 29 04/22/2023 28 02/04/2023 24 06/30/2022 29 06/12/2022 33 03/13/2022 25 12/09/2021 26 05/16/2021 14 03/25/2021 22 12/21/2020 15 12/20/2020 20 12/19/2020 18 12/18/2020 12 12/06/2020 28 10/04/2020 24 06/25/2020 21 04/02/2020 18 Potassium (mmol/L) Date Value 12/28/2023 3.7 10/13/2023 4.6 04/22/2023 5.3 02/04/2023 5.0 06/30/2022 4.6 06/12/2022 5.6 03/13/2022 5.0 12/09/2021 4.6 05/16/2021 4.4 03/25/2021 3.8 12/21/2020 4.6 12/20/2020 4.7 12/19/2020 4.4 12/18/2020 4.2 12/06/2020 3.7 10/04/2020 4.2 06/25/2020 4.6 04/02/2020 4.9 CO2 (mmol/L) Date Value 12/28/2023 27 10/13/2023 24 04/22/2023 22 02/04/2023 20 06/30/2022 25 06/12/2022 22 03/13/2022 23 12/09/2021 19 05/16/2021 25 03/25/2021 24 12/21/2020 25 12/20/2020 23 12/19/2020 24 12/18/2020 23 12/06/2020 22 10/04/2020 23 06/25/2020 25 04/02/2020 24 Hemoglobin (g/dL) Date Value 12/28/2023 13.8 04/22/2023 12.3 02/04/2023 13.5 06/30/2022 13.4 03/13/2022 13.8 05/16/2021 14.0 03/25/2021 15.0 12/21/2020 9.6 12/20/2020 10.4 12/19/2020 10.7 WBC (k/uL) Date Value 12/28/2023 7.04 04/22/2023 6.47 02/04/2023 8.34 06/30/2022 6.55 03/13/2022 6.85 05/16/2021 7.08 03/25/2021 7.76 12/21/2020 10.32 12/20/2020 10.90 12/19/2020 9.74 Platelet Count (k/uL) Date Value 12/28/2023 220 04/22/2023 248 02/04/2023 279 06/30/2022 243 03/13/2022 254 05/16/2021 272 03/25/2021 273 12/21/2020 154 12/20/2020 157 12/19/2020 168 Creatinine, Ur Random (UCRR) (mg/dL) Date Value 12/28/2023 79.6 04/22/2023 48.0 02/04/2023 133.7 06/30/2022 56.8 04/18/2022 107.9 12/09/2021 91.4 05/16/2021 40.2 10/04/2020 34.9 10/21/2019 81.5 09/02/2017 40.4 12/25/2016 170.3 Protein, Urine Random (mg/dL) Date Value 12/28/2023 10 04/22/2023 9 02/04/2023 11 06/30/2022 7 12/09/2021 12 05/16/2021 <4 10/04/2020 7 10/21/2019 9 09/02/2017 6 12/25/2016 21 Protein, Timed Urine (gm/24 Hr) Date Value 10/10/2010 7.90 08/28/2010 6.31 06/20/2010 7.08 05/02/2010 3.42 Hemoglobin A1C Date Value Ref Range Status 12/06/2020 5.5 4.3 - 5.6 % Final Comment: [place] [employer] guidelines indicate that patients with HgbA1c in the range 5.7-6.4% are at increased risk for development of diabetes, and intervention by lifestyle modification may be beneficial. HgbA1c greater or equal to 6.5% is considered diagnostic of diabetes. 03/09/2019 5.5 4.3 - 5.6 % Final Comment: [place] [employer] guidelines indicate that patients with HgbA1c in the range 5.7-6.4% are at increased risk for development of diabetes, and intervention by lifestyle modification may be beneficial. HgbA1c greater or equal to 6.5% is considered diagnostic of diabetes. Cholesterol, Total (mg/dL) Date Value 04/22/2023 106 06/25/2020 122 HDL Cholesterol (mg/dL) Date Value 04/22/2023 42 06/25/2020 53 LDL Cholesterol (mg/dL) Date Value 04/22/2023 41 06/25/2020 51 Triglyceride (mg/dL) Date Value 04/22/2023 116 06/25/2020 90 . Recent Labs 12/28/23 1100 HB 13.8 Recent Labs 12/28/23 1100 10/13/23 1128 04/22/23 0835 02/04/23 1457 PTH -- -- -- 47 ALKPHOS 114 101 < > 116 VITD25 -- 43.4 -- 52.0 CA 10.2 9.6 < > 9.8 ALB 4.4 3.9 < > 4.2 < > = values in this interval not displayed. No results for input(s): HEPSABQ in the last 1440 hours. Invalid input(s): HEPSABG PARVEZ Date Value Ref Range Status 02/04/2023 Negative Negative Final Comment: Anti-nuclear antibody test is used as an aid in diagnosis of systemic autoimmune diseases. Where positive and clinically warranted, follow-up using disease-specific testing is recommended. Low positive titers are not uncommon with advanced age, certain chronic infections, and malignancies among others. Test methodology: Indirect fluorescence immunoassay (IFA) using HEp-2 cells. IMAGING No recent imaging results URINE ANALYSIS Urine chemistry findings reviewed pH, Urine Date Value Ref Range Status 12/28/2023 6.0 <8.[address], Ur Date Value Ref Range Status 12/28/2023 1.020 1.005 - 1.030 Final Glucose, Urine Date Value Ref Range Status 12/28/2023 Negative Negative Final Bilirubin, Urine Date Value Ref Range Status 12/28/2023 Negative Negative Final Ketones, Urine Date Value Ref Range Status 12/28/2023 Negative Negative Final Hemoglobin/Blood,Ur Date Value Ref Range Status 12/28/2023 Negative Negative Final Protein, Urine Date Value Ref Range Status 12/28/2023 Negative Negative Final Urobilinogen Date Value Ref Range Status 12/28/2023 0.2 EU/dL 0.2-1.0 EU/dL Final Nitrites Date Value Ref Range Status 12/28/2023 Negative Negative Final WBC, Urine Date Value Ref Range Status 12/28/2023 11-20 /HPF (A) 0-5 /HPF Final ASSESSMENT AND PLAN 68 year old yo female seen today, referred for my opinion regarding lupus nephritis My recommendations will be communicated by way of shared medical record, fax, or mail. Encounter Diagnosis ICD-10-CM 1. Stage 3a chronic kidney disease (HCC) N18.31 2. 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 Screening for genitourinary condition Z13.89 5. Hypertension, unspecified type I10 History of lupus nephritis and stage 3a CKD - membranous lupus on kidney biopsy 2009 - treatment course as noted, currently on benlysta (planned every 2 months). Following closely with rheumatology. In remission with no proteinuria or hematuria on dip, normal complement levels on last check with anti ds DNA pending. As far as renal function, mildly low GFR but stable in last 2-3 years - noted she was on celebrex which was stopped about a year, additionally has history of hypertension, HFpEF and atrial fibrillation and was on lasix and spironolactone - spironolactone stopped recently due to reported low BP. Some hemodynamically mediated fluctuations in GFR may be expected in this setting. No recent renal imaging so will check US kidney. Continue follow up with rheum - on benlysta. Discussed hydration and avoidance of NSAIDs She follows with cardiology closely for hypertension and cardiac management - advised checking BP at home At this point, renal function stable and in remission from lupus nephritis (membranous). Check US kidney to complete workup. Can follow up in a year if stable Recommended continued close follow up with other physicians for other medical conditions All of the above diagnoses stated are associated to the principal diagnosis and tests and labs ordered and interpreted are directly associated with one and other or may play a role in the pathophysiology of each of them. Portions of this note might have been copied from previous encounters, if any, but have been updated as necessary. Patient is aware to call or communicate via Yuanfen~Flow™t with any questions/ concerns Also discussed ER evaluation if there are any concerning symptoms, or uncontrolled blood pressure I spent a total of 45 minutes on the date of the service which included preparing to see the patient, [id number] patient care, completing clinical documentation, obtaining and/or reviewing separately obtained history, performing a medically appropriate examination, counseling and educating the patient/family/caregiver, and ordering medications, tests, or procedures. SIGNATURE: Radu Salazar MD, FACP, FASN PATIENT NAME: Jesus Wolf DATE: December 29, 2023 TIME: 9:27 AM OFFICE NUMBER: [phone] documented in this encounter [facility] 12-29-2023 Evaluation note Diagnosis Stage 3a chronic kidney disease (HCC)- Primary Membranous glomerulonephritis Nephritis and nephropathy, not specified as acute or chronic, with lesion of membranous glomerulonephritis Lupus nephritis, ISN/RPS class V (HCC) Screening for genitourinary condition Screening for other and unspecified genitourinary condition Hypertension, unspecified type documented in this encounter [facility]05-10-2024 Telephone encounter Note* Telephone Encounter - Coco Miles - 12/25/2023 3:46 PM EDT Patient has been scheduled for 02/23/2024 [facility]05-10-2024 Telephone encounter Note* Telephone Encounter - Coco Miles - 12/25/2023 3:46 PM EDT ----- Message from Carley Reich sent at 12/25/2023 11:43 AM EDT ----- [facility] Team, Dr. Murphy is changing her benlysta infusions to every 2 months. Could you please reach out to this patient and move up her 03/17/24 infusion to the first week in February? Thank you! ----- Message ----- From: Nadege Murphy DO Sent: 12/25/2023 10:17 AM EDT To: Leelee Ramires [facility]; # Taty, can we please increase these infusions to every 2 months? Can we also give her 40 mg IVMP and NOT 60? She goes to [facility] center Thank you! [facility]05-10-2024 Miscellaneous Notes* Telephone Encounter - Coco Miles - 12/25/2023 3:46 PM EDT Patient has been scheduled for 02/23/2024 * Telephone Encounter - Coco Miles - 12/25/2023 3:46 PM EDT ----- Message from Carley Reich sent at 12/25/2023 11:43 AM EDT ----- [facility] Team, Dr. Murphy is changing her benlysta infusions to every 2 months. Could you please reach out to this patient and move up her 03/17/24 infusion to the first week in February? Thank you! ----- Message ----- From: Nadege Murphy DO Sent: 12/25/2023 10:17 AM EDT To: Leelee Ramires, [facility]; # Taty, can we please increase these infusions to every 2 months? Can we also give her 40 mg IVMP and NOT 60? She goes to [facility] Thank you! [facility] History of Present illness Narrative* Nadege Murphy DO - 12/25/2023 10:00 AM EDT Images from the original note were not included. [facility] DEPARTMENT OF RHEUMATIC [...] 1500 mg daily because of recurrent URI March 2020 admitted with CHF A. fib [...] Had morning stiffness which lasts 15-20 minutes. 01/2023 mycophenolate mofetil was stopped. She can tell she is due to BEL every 3 months, has increased fatigue prior to her infusions. Today she is even worst on month 3 with increased joint pain and worsening fatigue. She notably gets 60 mgIVMP with her infusions due to eye swelling that happened when she was first infused. Going for another ablation this month for a fib. Current Medications: HCQ 400 mg once daily Belimumab infusions every 3 months with 60 mg IVMP Answers submitted by the patient for this visit: Review of Systems Rheumatology (Submitted on 12/24/2023) Fever : No Recent unintentional weight change: No Eye pain: No Eye redness: No Vision Disturbance: No Eye Dryness: No Nosebleeds: No Sores in your mouth: No Trouble Swallowing: No Dry Mouth: No Leg Swelling: Yes A cough: No Shortness of breath: Yes Pain with breathing: No Heartburn: No Abdominal pain: No Diarrhea: Yes Black tarry stools: No Blood in urine: No Pain or burning with urination: No Joint pain or stiffness: Yes Muscle weakness: Yes Muscle aches: Yes Joint swelling: Yes Morning Stiffness in Joints: Yes A rash: Yes Skin Color Changes: No Hair Loss: No [...] TUNNEL RIGHT WRIST surgical correction COLONOSCOPY 05/10/2019 [facility] COLONOSCOPY GEN ANES 07/23/2020 Dr. Frances/Diverticulosis/Hemorrhoids/ Ulcerative Colitis/Rpt in 2 yrs. COLONOSCOPY SCREENING 03/2023 EGD EUS 01/11/2020 [facility] LASIK Right prior to 1999 MRI PANC/JEANIE WO/W IVCON 12/20/2019 OVARIAN CYSTECTOMY PAST SURGICAL HISTORY OF 07/2013 bilateral foot procedure, Sherry PAST SURGICAL HISTORY OF Ablation X2 TONSILLECTOMY HX MEDICATIONS: colestipol (COLESTID) 1 gram tablet Take 3 tablets by mouth two times a day. ferrous sulfate (IRON) 325 mg (65 mg iron) tablet Take 1 tablet by mouth once daily. amiodarone (PACERONE) 200 mg tablet Take 1 tablet by mouth [...] procedure (Patient not taking: Reported on 10/13/2023) hydrOXYchloroQUINE (PLAQUENIL) 200 mg tablet take 1 tablet by mouth twice a day with food metoprolol succinate ER (TOPROL XL) 50 mg 24 hr tablet TAKE 1 TABLET BY MOUTH IN THE MORNING AND 2 TABLETS BY MOUTH IN THE EVENING ELIQUIS 5 mg tab(s) Take 5 mg by mouth twice daily. acetaminophen (TYLENOL) 500 mg tablet Take 1 tablet by mouth every 4 hours as needed for pain. gubfywp-ehyywynyn-ivhenjz D3 500 mg-5 mcg (200 unit) per tablet Take 1 tablet by mouth three times daily. MV with Lrj-Sucolzko-Uibuym (CENTRUM SILVER) 0.4 mg-300 mcg- 250 mcg tab Take 1 tablet by mouth once daily. celecoxib (CELEBREX) 200 mg capsule Take 200 mg by mouth twice daily. sucralfate (CARAFATE) 100 mg/mL suspension Take 10 mL by mouth four times daily. atorvastatin (LIPITOR) 40 mg tablet Take 1 tablet by mouth once daily. (Patient taking differently:Take 40 mg by mouth two times a [...] 10 mg by mouth daily at bedtime. Cholecalciferol, Vitamin D3, 2,000 unit cap Take by mouth once daily. vitamin b complex(B COMPLEX TAB) one daily multivitamins w-minerals/lut(CENTRUM SILVER TAB) Take one(1) tablet daily. ALLERGIES: ALLERGIES Allergen Reactions Dofetilide Other: See [...] Looks well, NAD, A & Ox3. HEENT: + pink facial rash. No alopecia. Skin: No rash. No ulcers. Musculoskeletal: Elbows: No swelling, no flexion contractures, [...] in renal remission and no longer warrants MMF as of 01/2023. We will continue HCQ 5 mg/kg/day dosing and belimumab 10 mg/kg iv infusions changed to every 2 months with LESS IVMP (down to 40 mg from 60). We have discussed the risks and toxicities associated with the use of these medications and the appropriate lab monitoring. We will obtain SLE labs today. She will see Nephrology next week. 2. 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 I have prescribed for her a course of Voltaren Gel 1% for her to use four times/daily. Health Maintenance: Vaccinations: Prevnar 20 given 01/2023. She is otherwise up to date with all vaccines. Advised COVIDbooster this fall. Bone Health: Seeing metabolic Bone. HCQ monitorin10/2023 scanned into system. RTC 6 months. Nadege Murphy D.O. Rheumatology Staff [facility] History of Present illness Narrative* Janis Crenshaw RN - 12/24/2023 9:47 AM EDT Since your last infusion, have you: Had [...] or open sores? No [facility] Instructions* Patient Instructions* Dione Frances MD - 12/22/2023 11:35 AM EDT Increase colestipol 3 pills twice a day [facility] History and physical note * Dione Frances MD - 12/22/2023 11:00 AM EDT FOLLOW UP OFFICE VISIT REASON FOR VISIT: Follow-up UC HPI: Jesus Wolf is a 68 year old female who presents for UC. She recently has had a lot of other medical issues including uncontrolled A-fib, vaginal bleeding and nosebleeds from her anticoagulation. She is undergoing evaluation for a possible Watchman device.Throughout all of these issues she has been having erratic bowel habits with 2-4 bowel movements a day of type I-VII stool. She is taking colestipol which has been helping. She denies any melena, hematochezia or rectal bleeding. She denies any abdominal pain. She denies any nausea, vomiting, dysphagia. 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 Latest Ref Rng 12/25/2022 02/09/2023 CALPROTECTIN, FECAL QUANTITATIVE <50 ug/g 335 (H) CALPROTECTIN, FECAL INTERP Normal Elevated ! Calprotectin, Fecal 0 - 50 mg/kg 468.0 (H) Latest Ref Rng 04/22/2023 10/13/2023 WBC 3.70 - 11.00 k/uL 6.47 RBC 3.90 - 5.20 m/uL 3.90 Hemoglobin 11.5 - 15.5 g/dL 12.3 Hematocrit 36.0 - 46.0 % 37.0 MCV 80.0 - 100.0 fL 94.9 MCH 26.0 - 34.0 pg 31.5 MCHC 30.5 - 36.0 g/dL 33.2 RDW-CV 11.5 - 15.0 % 13.1 Platelet Count 150 - 400 k/uL 248 MPV 9.0 - 12.7 fL 9.5 Neut% % 66.7 Abs Neut (ANC) 1.45 - 7.50 k/uL 4.31 Lymph% % 19.8 Abs Lymph 1.00 - 4.00 k/uL 1.28 Medina% % 9.7 Abs Medina <0.87 k/uL 0.63 Eosin% % 2.9 Abs Eosin <0.46 k/uL 0.19 Baso% % 0.6 Abs Baso <0.11 k/uL 0.04 Immature Gran % % 0.3 IMMATURE GRANS (ABS) <0.10 k/uL <0.03 NRBC /100 WBC 0.0 Absolute nRBC <0.01 k/uL <0.01 DTYPE Auto Protein, Total 6.3 - 8.0 g/dL 6.3 6.2 (L) Albumin 3.9 - 4.9 g/dL 4.2 3.9 Calcium 8.5 - 10.2 mg/dL 9.2 9.6 Bilirubin, Total 0.2 - 1.3 mg/dL 0.5 0.4 Alkaline Phosphatase 34 - 123 U/L 113 101 AST 13 - 35 U/L 23 25 ALT 7 - 38 U/L 22 24 Glucose 74 - 99 mg/dL 98 101 (H) BUN 7 - 21 mg/dL 28 (H) 29 (H) Creatinine 0.58 - 0.96 mg/dL 1.24 (H) 1.04 (H) Sodium 136 - 144 mmol/L 142 143 Potassium 3.7 - 5.1 mmol/L 5.3 (H) 4.6 Chloride 97 - 105 mmol/L 110 (H) 107 (H) CO2 22 - 30 mmol/L 22 24 Anion Gap 9 - 18 mmol/L 10 12 eGFR >=60 mL/min/1.73m 48 (L) 59 (L) Vitamin D 25 Hydroxy 31.0 - 80.0 ng/mL 43.4 ALLERGIES Allergen Reactions Dofetilide Other: See Comments, [...] TUNNEL RIGHT WRIST surgical correction COLONOSCOPY 05/10/2019 [facility] COLONOSCOPY GEN ANES 07/23/2020 Dr. Frances/Diverticulosis/Hemorrhoids/ Ulcerative Colitis/Rpt in 2 yrs. COLONOSCOPY SCREENING 03/2023 EGD EUS 01/11/2020 [facility] LASIK Right prior to 1999 MRI PANC/JEANIE WO/W IVCON 12/20/2019 OVARIAN CYSTECTOMY PAST SURGICAL HISTORY OF 07/2013 bilateral foot procedure, [place] PAST SURGICAL HISTORY OF 2018,2019 Ablation X2 [...] the past. Current Outpatient Medications Medication Sig ferrous sulfate (IRON) 325 mg (65 mg iron) tablet Take 1 tablet by mouth once daily. amiodarone (PACERONE) 200 mg tablet Take 1 tablet by mouth [...] procedure (Patient not taking: Reported on 10/13/2023) colestipol (COLESTID) 1 gram tablet TAKE 2 [...] Take 4 g by mouth three times a day with meals. acetaminophen (TYLENOL) 500 mg tablet Take 1 tablet by mouth every 4 hours as needed for pain. egcnyfq-vcrermgrz-kcialwk D3 500 mg-5 mcg (200 unit) per tablet Take 1 tablet by mouth three times daily. MV with Oqq-Jourkowz-Sjoiro (CENTRUM SILVER) 0.4 mg-300 mcg- 250 mcg tab Take 1 tablet by mouth once daily. celecoxib (CELEBREX) 200 mg capsule Take 200 mg by mouth twice daily. sucralfate (CARAFATE) 100 mg/mL suspension Take 10 mL by mouth four times daily. atorvastatin (LIPITOR) 40 mg tablet Take 1 tablet by mouth once daily. (Patient taking differently:Take 40 mg by mouth two times a [...] 10 mg by mouth daily at bedtime. Cholecalciferol, Vitamin D3, 2,000 unit cap Take by mouth once daily. vitamin b complex(B COMPLEX TAB) one daily multivitamins w-minerals/lut(CENTRUM SILVER TAB) Take one(1) tablet daily. No current facility-administered medications for this visit. REVIEW OF SYSTEMS: PAIN ASSESSMENT: Negative for [...] No history of dysuria, frequency or incontinence TURNAROUND PLANNER: Negative for abnormal vaginal bleeding, abnormal vaginal [...] paralysis, seizures or tremors PHYSICAL EXAMINATION: BP 157/92 Pulse 76 Wt 260 lb (117.9kg) LMP 07/17/2011 General appearance: Well appearing, alert, [...] flag or alarm symptoms at this time. RTC 3 months I spent a total of 30 minutes on the date of service which included preparing to see the patient, face to face patient care, completing clinical documentation, performing a medically appropriate examination and counseling and educating the patient/family/caregiver. Dione Frances MD, MPH Gastroenterology and Hepatology This note was partially generated using the Trendabl voice recognition system, there may be some incorrect words, spellings, and punctuation that were not noted in checking the note before saving [facility]05-07-2024 History and physical note* Dione Frances MD - 12/22/2023 11:00 AM EDT FOLLOW UP OFFICE VISIT REASON FOR VISIT: Follow-up UC HPI: Jesus Wolf is a 68 year old female who presents for UC. She recently has had a lot of other medical issues including uncontrolled A-fib, vaginal bleeding and nosebleeds from her anticoagulation. She is undergoing evaluation for a possible Watchman device.Throughout all of these issues she has been having erratic bowel habits with 2-4 bowel movements a day of type I-VII stool. She is taking colestipol which has been helping. She denies any melena, hematochezia or rectal bleeding. She denies any abdominal pain. She denies any nausea, vomiting, dysphagia. 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 Latest Ref Rng 12/25/2022 02/09/2023 CALPROTECTIN, FECAL QUANTITATIVE <50 ug/g 335 (H) CALPROTECTIN, FECAL INTERP Normal Elevated ! Calprotectin, Fecal 0 - 50 mg/kg 468.0 (H) Latest Ref Rng 04/22/2023 10/13/2023 WBC 3.70 - 11.00 k/uL 6.47 RBC 3.90 - 5.20 m/uL 3.90 Hemoglobin 11.5 - 15.5 g/dL 12.3 Hematocrit 36.0 - 46.0 % 37.0 MCV 80.0 - 100.0 fL 94.9 MCH 26.0 - 34.0 pg 31.5 MCHC 30.5 - 36.0 g/dL 33.2 RDW-CV 11.5 - 15.0 % 13.1 Platelet Count 150 - 400 k/uL 248 MPV 9.0 - 12.7 fL 9.5 Neut% % 66.7 Abs Neut (ANC) 1.45 - 7.50 k/uL 4.31 Lymph% % 19.8 Abs Lymph 1.00 - 4.00 k/uL 1.28 Medina% % 9.7 Abs Medina <0.87 k/uL 0.63 Eosin% % 2.9 Abs Eosin <0.46 k/uL 0.19 Baso% % 0.6 Abs Baso <0.11 k/uL 0.04 Immature Gran % % 0.3 IMMATURE GRANS (ABS) <0.10 k/uL <0.03 NRBC /100 WBC 0.0 Absolute nRBC <0.01 k/uL <0.01 DTYPE Auto Protein, Total 6.3 - 8.0 g/dL 6.3 6.2 (L) Albumin 3.9 - 4.9 g/dL 4.2 3.9 Calcium 8.5 - 10.2 mg/dL 9.2 9.6 Bilirubin, Total 0.2 - 1.3 mg/dL 0.5 0.4 Alkaline Phosphatase 34 - 123 U/L 113 101 AST 13 - 35 U/L 23 25 ALT 7 - 38 U/L 22 24 Glucose 74 - 99 mg/dL 98 101 (H) BUN 7 - 21 mg/dL 28 (H) 29 (H) Creatinine 0.58 - 0.96 mg/dL 1.24 (H) 1.04 (H) Sodium 136 - 144 mmol/L 142 143 Potassium 3.7 - 5.1 mmol/L 5.3 (H) 4.6 Chloride 97 - 105 mmol/L 110 (H) 107 (H) CO2 22 - 30 mmol/L 22 24 Anion Gap 9 - 18 mmol/L 10 12 eGFR >=60 mL/min/1.73m 48 (L) 59 (L) Vitamin D 25 Hydroxy 31.0 - 80.0 ng/mL 43.4 ALLERGIES Allergen Reactions Dofetilide Other: See Comments, [...] TUNNEL RIGHT WRIST surgical correction COLONOSCOPY 05/10/2019 [facility] COLONOSCOPY GEN ANES 07/23/2020 Dr. Frances/Diverticulosis/Hemorrhoids/ Ulcerative Colitis/Rpt in 2 yrs. COLONOSCOPY SCREENING 03/2023 EGD EUS 01/11/2020 [facility] LASIK Right prior to [...] the past. Current Outpatient Medications Medication Sig ferrous sulfate (IRON) 325 mg (65 mg iron) tablet Take 1 tablet by mouth once daily. amiodarone (PACERONE) 200 mg tablet Take 1 tablet by mouth [...] procedure (Patient not taking: Reported on 10/13/2023) colestipol (COLESTID) 1 gram tablet TAKE 2 [...] Take 4 g by mouth three times a day with meals. acetaminophen (TYLENOL) 500 mg tablet Take 1 tablet by mouth every 4 hours as needed for pain. cuxkspi-wovdvjydi-uozltiu D3 500 mg-5 mcg (200 unit) per tablet Take 1 tablet by mouth three times daily. MV with Ctz-Znlrblvv-Tihicc (CENTRUM SILVER) 0.4 mg-300 mcg- 250 mcg tab Take 1 tablet by mouth once daily. celecoxib (CELEBREX) 200 mg capsule Take 200 mg by mouth twice daily. sucralfate (CARAFATE) 100 mg/mL suspension Take 10 mL by mouth four times daily. atorvastatin (LIPITOR) 40 mg tablet Take 1 tablet by mouth once daily. (Patient taking differently:Take 40 mg by mouth two times a [...] 10 mg by mouth daily at bedtime. Cholecalciferol, Vitamin D3, 2,000 unit cap Take by mouth once daily. vitamin b complex(B COMPLEX TAB) one daily multivitamins w-minerals/lut(CENTRUM SILVER TAB) Take one(1) tablet daily. No current facility-administered medications for this visit. REVIEW OF SYSTEMS: PAIN ASSESSMENT: Negative for [...] No history of dysuria, frequency or incontinence TURNAROUND PLANNER: Negative for abnormal vaginal bleeding, abnormal vaginal [...] paralysis, seizures or tremors PHYSICAL EXAMINATION: BP 157/92 Pulse 76 Wt 260 lb (117.9kg) LMP 07/17/2011 General appearance: Well appearing, alert, [...] flag or alarm symptoms at this time. RTC 3 months I spent a total of 30 minutes on the date of service which included preparing to see the patient, face to face patient care, completing clinical documentation, performing a medically appropriate examination and counseling and educating the patient/family/caregiver. Dione Frances MD, MPH Gastroenterology and Hepatology This note was partially generated using the Trendabl voice recognition system, there may be some incorrect words, spellings, and punctuation that were not noted in checking the note before saving documented in this encounter[facility] Telephone encounter Note * Telephone Encounter - Bang Spears RN - 12/15/2023 10:09 AM EDT Pharmacy escripts requesting the following refill: Requested Prescriptions Pending Prescriptions Disp Refills ferrous sulfate (IRON) 325 mg (65 mg iron) tablet 90 tablet 3 Sig: Take 1 tablet by mouth once daily. Please review and advise. Bang Spears RN [facility]04-30-2024 Miscellaneous Notes* Telephone Encounter - Bang Spears RN - 12/15/2023 10:09 AM EDT Pharmacy escripts requesting the following refill: Requested Prescriptions Pending Prescriptions Disp Refills ferrous sulfate (IRON) 325 mg (65 mg iron) tablet 90 tablet 3 Sig: Take 1 tablet by mouth once daily. Please review and advise. Bang Spears RN documented in this encounterMart[facility]04-23-[facility] History of Present illness Narrative* Jaysonshaan Luigi, DPZach - 12/08/2023 11:01 AM EDT Images from the original note were not included. SERVICE DATE: December 08, 2023 PCP: Wojciech Treviño MD, DO Subjective Patient ID: Jesus is a 68 year old female. Patient presents today for follow-up of painful calluses, pain in her midfoot area especially on the left, painful toenails Chief Complaint: Patient presents with: Foot Pain (Midfoot): Bilateral foot pain PAIN EVALUATION 12/01/2023 0950 Pain Level: 8 Description: Aching;Burning;Dull;Pressure;Radiating;Sharp;Shooting;Stabbing;Stabbing/Not Incision Duration Units: Hours Frequency: Intermittent Intervention/Comfort measure: Reposition;Relaxation;Massage;Positioning HPI patient with bilateral, left worse than right midfoot pain, progressively advancing hammertoes and bunion deformities with associated pain and calluses of the forefoot with fissuring which patient self treats by standing and utilizing a variety of topical medications. Occasional midfoot joint injections under imaging with Dr. Jones Review of Systems ACTIVE PROBLEM LIST Edema [...] TUNNEL RIGHT WRIST surgical correction COLONOSCOPY 05/10/2019 [facility] COLONOSCOPY GEN ANES 07/23/2020 Dr. Frances/Diverticulosis/Hemorrhoids/ Ulcerative Colitis/Rpt in 2 yrs. COLONOSCOPY SCREENING 03/2023 EGD EUS 01/11/2020 [facility] LASIK Right prior to [...] red spot in area of shot MEDICATIONS: iv contrast (will be provided with radiology [...] Take 4 g by mouth three times a day with meals. ferrous sulfate (IRON) 325 mg (65 mg iron) tablet Take 1 tablet by mouth once daily. acetaminophen (TYLENOL) 500 mg tablet Take 1 tablet by mouth every 4 hours as needed for pain. qlwiiwb-cxsqtaizn-klisqoj D3 500 mg-5 mcg (200 unit) per tablet Take 1 tablet by mouth three times daily. MV with Zrw-Wggomdkx-Mcmstp (CENTRUM SILVER) 0.4 mg-300 mcg- 250 mcg tab Take 1 tablet by mouth once daily. celecoxib (CELEBREX) 200 mg capsule Take 200 mg by mouth twice daily. sucralfate (CARAFATE) 100 mg/mL suspension Take 10 mL by mouth four times daily. atorvastatin (LIPITOR) 40 mg tablet Take 1 tablet by mouth once daily. (Patient taking differently:Take 40 mg by mouth two times a [...] 10 mg by mouth daily at bedtime. Cholecalciferol, Vitamin D3, 2,000 unit cap Take by mouth once daily. vitamin b complex(B COMPLEX TAB) one daily multivitamins w-minerals/lut(CENTRUM SILVER TAB) Take one(1) tablet daily. amiodarone (PACERONE) 200 mg tablet Take 1 tablet by mouth every 12 hours. amoxicillin (AMOXIL) 500 mg capsule Take 4 tablets one hour prior to dental procedure (Patient not taking: Reported on 10/13/2023) Allergies, medications, past surgical history, family history and past medical history were reviewed per this encounter. PHYSICAL EXAM O: DP +2/4, PT +2/4, CFT less than 3 seconds; bilateral. Neurological: Intact epicritic sensation bilateral Hair: Absent bilateral. Temp: Warm to warm tibia to toes bilateral Skin: Patient has pinch callus hallux IPJ bilateral and MTPJ right, distal calluses at the tips of second and third toes bilateral, brawny discoloration over the head of the proximal phalanx of the third toe left.. Yellow to juan, thick, crumbly, painful toenails 1-5 bilateral Clinical: Bilateral HAV and 2nd through 5th hammertoe deformities. Patient has Charcot appearing collapse of left midfoot with mild rocker-bottom fourth TMT and valgus positioning of the foot. X-Ray: No Updated x-rays obtained today Assessment/Plan ASSESSMENT Diagnosis (L84) Pre-ulcerative calluses (primary encounter diagnosis) (M19.072) Osteoarthritis of midtarsal joint of left foot (M20.41, M20.42) Hammertoe, bilateral (M20.10) Hav (hallux abducto valgus), unspecified laterality No orders found for this visit on 12/08/23. PLAN Reviewed complaint, pathology, etiology, anatomy, treatment options conservative and surgical, prognosis, short and nursing home expectations, and benefit, and potential risks and complications associated with each complaint and related treatment option. Debrided mycotic nails thickness and length utilizing vladimir on power instrument. In order to perform a complete physical exam, bilateral limited shaving of keratotic area was performed. This incidental service is integral to the evaluation and management visit in order to appropriately manage and treat the patient (for their complaint or for thisvisit). FOLLOW-UP: PRN SIGNATURE: Beverly Franco DPM PATIENT NAME: Jesus Wolf DATE: December 08, 2023 TIME: 11:03 AM Beverly Franco DPM documented in this encounterMart[facility]04-[facility]-[address] [facility]04-01-2024 History of Present illness Narrative* Juan Chino MD - 11/16/2023 3:30 PM EDT Current Outpatient Medications Medication Instructions alendronate (FOSAMAX) 70 mg, oral, Every 7 days, Take in the morning with a full glass of water, jhon empty stomach, and do not take anything else by mouth or lie down for the next 30 min. apixaban (ELIQUIS) 5 mg, oral, 2 times daily atorvastatin (LIPITOR) 40 mg, oral, Daily B complex-vitamin C-folic acid (Dialyvite) 100-1 mg tablet 1 tablet, oral, Daily belimumab (Benlysta) 120 mg recon soln IV injection intravenous Bifidobacterium infantis (ALIGN ORAL) 1 tablet, oral, Daily busPIRone (BUSPAR) 10 mg, oral, Nightly celecoxib (CELEBREX) 200 mg, oral, Daily RT cholecalciferol (Vitamin D-3) 50 mcg (2,000 unit) capsule 1 capsule, oral, Daily colestipol (COLESTID) 2 g, oral, 2 times daily, Take at least 1 hour after or 4 hours before other medications. ferrous sulfate 325 (65 Fe) MG tablet 65 mg of iron, oral, Daily with breakfast flecainide (TAMBOCOR) 150 mg, oral, 2 times daily furosemide (Lasix) 40 mg tablet 1 tablet, oral, Daily hydroxychloroquine (Plaquenil) 200 mg tablet 1 tablet, oral, 2 times daily levothyroxine (SYNTHROID, LEVOXYL) 50 mcg, oral, Daily before breakfast mesalamine (LIALDA) 1.2 mg, oral, 4 times daily metoprolol succinate XL (TOPROL-XL) 50 mg, oral, Daily, Take one tablet by mouth every morning and 2 tablets by mouth every evening multivitamin with minerals iron-free (Centrum Silver) 1 tablet, oral, Daily pantoprazole (PROTONIX) 40 mg, oral, Daily before breakfast, Do not crush, chew, or split. Subjective Jesus Wolf is a 68 y.o. female. Chief Complaint: Atrial Fibrillation and Atrial Flutter HPI Patient is being referred by Dr. Yuriy Conway for an A-flutter ablation. PMH includes: MONI, Systemic lupus, in remission, on medical therapy with hydroxychloroquine. Managed by the [facility], morbid obesity, hyperlipidemia, HTN, History of hypercalcemia caused by hyperparathyroidism status post parathyroidectomy last year at the [facility] with success, Ascending aortic aneurysm measured 4.6 cm from echocardiogram September 2021, follow-up echocardiogram in 2021 measured only 3.8 cm, A-fib. ALSO PMHx OF POSTMENOPAUSAL BLEEDING, ANEMIA AND EPISTAXIS. A-fib treatment history: The initial diagnosis date of atrial fibrillation (A-fib) is uncertain, though it has been recognized since at least 2017. The patient has persistent A-fib and atypical atrial flutter, with previous cardioversions unsuccessful. She underwent a pulmonary vein isolation (PVI) with additional lesions in May 2019 and an atypical atrial flutter ablation in August 2019. Medications tried include Tikosyn (discontinued due to ventricular tachycardia), Amiodarone (following A-fib ablation). She was noted to be back in A-flutter 09/17/23 and started on Flecainide 100mg twice daily, and Metoprolol 150mg daily. Cardioversion was scheduled, but she reverted back to NSR spontaneously. She uses a Enertiv mobile device and statesshe is going in and out of rhythm more often. Flecainide was increased to 150mg BID on 10/29/23. Symptoms during atrial fibrillation episodes include fatigue, palpitations, and shortness of breath. Eliquis held X 3 days 11/09 due to nosebleed. Today patient c/o dyspnea on exertion and fatigue. TESTING -ECHO: (09/17/22) CONCLUSIONS: 1. Left ventricular systolic function is [...] 36 mmHg. 8. Mild aortic valve regurgitation. - NUC STRESS TEST: 08/22/22 IMPRESSION: Normal Lexiscan Myoview cardiac perfusion stress test. No evidence of ischemia or myocardial infarction by perfusion imaging. Normal left ventricular systolic function, ejection fraction 62% Review of Systems Constitutional: Positive for malaise/fatigue. HENT: Negative. Eyes: Negative. Cardiovascular: Positive for dyspnea on exertion, irregular heartbeat and palpitations. Respiratory: Positive for shortness of breath. Endocrine: Negative. Skin: Negative. Musculoskeletal: Positive for arthritis, joint pain and myalgias. Gastrointestinal: Positive for diarrhea. Genitourinary: Negative. Neurological: Negative. Psychiatric/Behavioral: Negative. Objective Constitutional: Appearance: Healthy appearance. Not in distress. Eyes: Pupils: Pupils are equal, round, and reactive to light. Neck: Thyroid: Thyroid normal. Vascular: JVD normal. Pulmonary: Effort: Pulmonary effort is normal. Breath sounds: Normal breath sounds. Cardiovascular: Tachycardia present. Regular rhythm. S1 with normal intensity. S2 with normal intensity. Murmurs: There is no murmur. No gallop. No click. No rub. Edema: Peripheral edema absent. Musculoskeletal: Normal range of motion. Cervical back: Normal range of motion and neck supple. Skin: General: Skin is warm and moist. Neurological: General: No focal deficit present. Mental Status: Alert and oriented to person, place and time. Motor: Motor function is intact. Gait: Gait is intact. Assessment/Plan The primary encounter diagnosis was Atrial flutter, unspecified type (CMS/HCC). A diagnosis of Paroxysmal atrial fibrillation (CMS/HCC) was also pertinent to this visit. WE DISCUSSED THE RISKS AND BENEFITS OF CATHETER ABLATION FOR PERSISTENT ATYPICAL AFLUTTER WITH RVR (138 bpm) AND AFIB DESPITE OF FLECAINIDE. SHE UNDERSTANDS AND WANTS TO PROCEED WITH ABLATION. WE WILL DC FLECAINIDE START AMIODARONE SCHEDULE DCVC WITH DR. CONWAY SCHEDULE AF ABLATION UNDER GENERAL ANESTHESIA - ASA HOLD ALL MEDS IN THE MORNING OF ABLATION INCLUDING ELIQUIS CARTO SYSTEM - ANY EP LAB CONSIDER TIKOSYN IF HIGH SCAR BURDEN WE ALSO DISCUSSED THE RISKS AND BENEFITS OF RUKHSANA CLOSURE PROCEDURE ASSOCIATED WITH THE WATCHMAN DEVICE A NON PHARMACOLOGIC STRATEGY FOR STROKE PREVENTION IN THE SETTINGS OF AFIB AND CONTRAINDICATION FOR LONG-TERM ORAL ANTICOAGULATION. SHE UNDERSTANDS AND WOULD LIKE TO PROCEED WITH CARDIAC CT AND WATCHMAN IMPLANTATION. SHE WILL MAKE A FINAL SHARED DECISION FOR THE WATCHMAN WITH DR. CONWAY. HER POST PROCEDURE ANTICOAGULATION REGIMEN WILL BE DAPT FOR 6 MO. DC ELIQUIS 2 MONTHS POST ABLATION AND START DAPT PRIOR TO WATCHMAN IMPLANT. Our strategy is to perform cardiac CT following left atrial appendage closure for device surveillance. Cardiac CTA has been shown to be more sensitive for detection of device leak and device related thrombus than PHYLLIS, and in addition offers a non-invasive modality with less risk for the patient than PHYLLIS which requires esophageal intubation with anesthesia. MD Pardeep Brown Master Clinician of Cardiovascular [place]. [facility] [place]. Director of Electrophysiology Center balance weigher. [employer]. documented in this encounterUnClinton [facility] Work Phone: 1(768) 549-891503-25-2024 History of Present illness Narrative* Kalyn Anthony LPN - 11/09/2023 9:00 AM EDT Patient here for at EKG visit ordered by Dr. Conway due to A-Fib. Dr. Watkins in suite. Patient here due to Change in medication at last OV . Medication list Updated verbally. Sob cardiac complaint.Discussed with Jinny Sullivan RN prior to discharge. To Dr. Conway for review Vitals: 11/09/23 0934 BP: 124/78 BP Location: Left arm Patient Position: Sitting Pulse: 90 SpO2: 94% Weight: 120 kg (264 lb) Height: 1.702 m (5' 7 ) documented in this encounterUnClinton [facility] Work Phone: 1(885) 166-219003-14-2024 History of Present illness Narrative* Yuriy Conway MD - 10/29/2023 8:40 AM EDT Subjective Jesus Wolf is a 68 y.o. [...] is in flutter and occasionally she is backin sinus rhythm on her own. She is symptomatic with dyspnea. Lungs sounded normal, heart rate was 96 bpm, blood pressure was normal. No lower extremity edema. Plan of action is detailed below. ASSESSMENT AND PLAN: 1. Paroxysmal atrial fibrillation, status post radiofrequency ablation with pulmonary vein isolation at [facility] in 2019. Patient seems to be in [...] was normal. Recent lab data from the [facility] werereviewed creatinine 1.0. 2. Sleep apnea, unable to utilize CPAP machine. She utilizes oxygen at night. 3. Systemic lupus, in remission, on medical therapy with hydroxychloroquine. Managed by the [facility] 4. Morbid obesity, patient is trying to [...] status post parathyroidectomy last year at the [facility] with success 10. Ascending aortic aneurysm measured 4.6 cm from echocardiogram September 2021, follow-up echocardiogram in 2021 measured only 3.8 cm Yuriy Conway MD, [facility] Review of Systems Cardiovascular: Positive for chest [...] mg) by mouth 2 times a day., Disp:, Rfl: levothyroxine (Synthroid, Levoxyl) 50 mcg tablet, Take 1 tablet (50 mcg) by mouth once daily in themorning. Take before meals., Disp: , Rfl: mesalamine [...] risk medication use 3. 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 Obstructive sleep apnea 6. BMI 40.0-44.9, adult (CMS/HCC) 7. Never smoked any substance 8. Systemic lupus erythematosus, unspecified SLE type, unspecified organ involvement status (CMS/HCC) Scribe Attestation By signing my name below, Fercho Sharma LPN , Scribe attest that this documentation has been prepared under the direction and in the presence of Yuriy Conway MD. Provider Attestation - Scribe documentation All medical record entries made by the Scribe were at my direction and personally dictated by me. Ihave reviewed the chart and agree that the record accurately reflects my personal performance of the history, physical exam, discussion and plan. documented in this [facility] Work Phone: 1(879) 227-744703-14-2024 Instructions* Patient Instructions* Kalyn Anthony LPN - 10/29/2023 8:40 AM [...] time of your visit. documented in [facility]Tr[facility] Work Phone: 1(491) 267-289603-12-2024 Miscellaneous Notes* Telephone Encounter - JackmanAnastasiya - 10/27/2023 3:34 PM EDT Received eye report from [facility] on 10/26. Scanned in chart for review. documented in this encounterMartins Ferry Hospital03-08-2024 Miscellaneous Notes* Allied Health - Franck De Guzman RT(R) - 10/23/2023 11:40 AM EST Radiology Service Progress Note PATIENT NAME: Jesus Wolf DATE OF SERVICE: October 23, 2023 TIME: 12:45 PM PATIENT IDENTITY VERIFICATION COMPLETED USING TWO (2) IDENTIFIERS: Name and Date of confirmedby patient verbally and Name and Date of confirmed by identification band. FALL SCREENING: Has the patient had 2 falls in the last year or 1 fall with injury or currently using an Ambulatory Assistive Device (Walker, Cane, Wheelchair, Crutches, etc.)? No PATIENT GENDER DATA: Female. status: : No status: NO. PATIENT RELEVANT IMPLANT DATA REVIEWED: Yes PATIENT PRESENTS WITH AN IMPLANTABLE OR ATTACHED MINESWEEPING OFFICER: No RADIOLOGY DEPARTMENT: MR; Exam(s) Completed: Body: Pancreas/Biliary PERIPHERAL IV DATA: Site assessment: Clean,Dry and Intact, Site disposition Discontinued SIGNED BY: RT Monica(R) October 23, 2023 12:45 PM documented in this encounterMartins Ferry Hospital03-08-2024 Nurse Note* Chantelle Grace RN - 10/23/2023 10:40 AM EST Regional MRI Anxiolysis Note PATIENT NAME: Jesus [...] 2023 TIME: 11:37 AM documented in this encounterMartins Ferry Hospital02-27-2024 History of Present illness Narrative* Julia Ann PA-C - 10/13/2023 10:31 AM EST Images from the original note were not included. Osteoporosis and Metabolic Bone Disease Date of Service: 10/13/2023 Patient: Jesus Wolf Medical Record: [id number] Primary Care Physician: Wojciech Treviño MD, DO Last Rheumatology visit: 04/10/2023 (with Nadege Murphy) History of Present Illness Jesus Wolf is a 68 year old White female who presents on 10/13/2023 for an in-person visit forevaluation of Osteopenia. INTERVAL HISTORY Presents today for osteopenia follow up. No new fractures or falls. No planned dental procedures. Has been taking Fosamax since 04/2022 as instructed. Tolerating well with no concerns. Patient had a parathyroidectomy on 08/27/2022. Taking 500 mg of calcium daily. Taking vitamin D. She is currently in a walking boot for L foot due to severe OA. Cutter Down is trailing 6 weeks in the boot. If symptoms improve, screening tech will prescribe a brace otherwise will discuss [...] use (Comment: Daily steroid uses from about 7947-2884) Previous use No rheumatoid arthritis Secondary osteoporosis [...] Asymptomatic postmenopausal status . DXA Model: A50 Oxley's Extra Advance (S/N: [id number]) SITE SCANNED: Lumbar Spine, Left Hip, & [...] should take calcium, the recommended dose is 7271-8380 mg per day along with 800-1000 IU vitamin D (some patients may require higher doses of vitamin D). LIMITATIONS: - Degenerative changes in the spine may artificially increase bone mass and make the reading unreliable FOLLOW-UP: - 2-years cc. Dr. Hardin Trans Router: findin Transcribe Date/Time: Mar 13 2022 3:34P [...] TUNNEL RIGHT WRIST surgical correction COLONOSCOPY 05/10/2019 [facility] COLONOSCOPY GEN ANES 07/23/2020 Dr. Frances/Diverticulosis/Hemorrhoids/ Ulcerative Colitis/Rpt in 2 yrs. COLONOSCOPY SCREENING 03/2023 EGD EUS 01/11/2020 [facility] LASIK Right prior to [...] - Calcium Replacement/Vitamin D Combinations Start End tjixsra-iewsrjfzw-vgwedlq D3 500 mg-5 mcg (200 unit) per tablet 08/27/2022 -- Sig - Route: Take 1 tablet by mouth three times daily. - ORAL Class: OTC Vitamins - D Derivatives Start End Cholecalciferol, Vitamin D3, 2,000 unit cap -- Sig - Route: Take by mouth once daily. - ORAL Class: Historical Med Multivitamin and Mineral Combinations Start End MV with Ing-Xipxhzhb-Fvidqp (CENTRUM SILVER) 0.4 mg-300 mcg- 250 mcg tab -- Sig - Route: Take 1 tablet by mouth once daily. - ORAL Class: Historical Med Minerals and Electrolytes - Calcium Replacement/Vitamin D Combinations Start End ramcnho-jxdomtrhw-siruuhs D3 500 mg-5 mcg (200 unit) per [...] Take 1 tablet by mouth once daily. cssqzji-eridtizpn-tbsntto D3 500 mg-5 mcg (200 unit) per tablet Take 1 tablet by mouth three times daily. MV with Ulg-Qstbqwvq-Veezxk (CENTRUM SILVER) 0.4 mg-300 mcg- 250 mcg tab Take 1 tablet by mouth once daily. celecoxib (CELEBREX) 200 mg capsule Take 200 mg by mouth twice daily. sucralfate (CARAFATE) 100 mg/mL suspension Take 10 mL by mouth four times daily. atorvastatin (LIPITOR) 40 mg tablet Take 1 tablet by mouth once daily. (Patient taking differently:Take 40 mg by mouth two times a [...] - Risk 3-dose series) Never done Covid-19 Vaccine(3 - season) due on 04/17/2023 Advance Directive Discussion Never [...] Fosamax from 02/2010-04/2010 & 10/2017-10/2019 and Boniva from04/2010-06/2012. Currently on Fosamax since 04/2022. S/p parathyroidectomy in 08/2022. Calcium intake is adequate. Vitamin D is adequate. Osteoporosis FRAX Risk Factors No Fractures No family history of osteoporosis No parent with a hip fracture Not a current smoker Glucocorticoid use (Comment: Daily steroid uses from about 3863-0596) Previous use No rheumatoid arthritis Secondary osteoporosis Malabsorption No alcohol use more than 3 units per day FRAX (WHO 10 Year Fracture Risk) Date of FRAX assessment: 05/12/22 Hip: 1.6% Major Osteoporotic: 10% Diagnoses: (M85.80) Osteopenia, unspecified location (primary encounter diagnosis) (Z98.890, Z90.89) S/P parathyroidectomy (Z79.83) halfway (current) use of 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 (E55.9) Vitamin D [...] Medical Decision Making Level: 3 - Low Julia Ann PA-C Date: October 13, 2023 documented in this encounterMartins Ferry Hospital02-23-2024 History of Present illness Narrative* Selin Birmingham LPN - 10/09/2023 12:42 PM EST Large tall pneumatic aircast applied to left foot. Patient teaching of application, removal and basic care of aircast provided. Even up and pneumatic aircast reference literature provided. Patient verbalized understanding. JENNIFFER De La Cruz * Beverly Franco DPM - 10/09/2023 12:37 PM EST Images from the original note were not included. SERVICE DATE: October 09, 2023 PCP: Wojciech Treviño MD, DO Subjective Patient ID: Jesus is a 68 year old female. Patient presents today for follow-up of bilateral foot pain stating that her left foot remains very painful on the bottom (indicating areas of 4-5 TMT) andalso at the area across the foot on the medial side. She also complains of calluses that crack openon the side of her right big toe. Chief Complaint: Patient presents with: Callous: Bilateral foot PAIN EVALUATION 10/02/2023 1040 Pain Level: 8 Pain Location: Foot-Left Description: Aching;Burning;Sharp;Sore;Throbbing Duration Units: Days Frequency: Continuous Intervention/Comfort measure: Other: See comment Comments: Staying off of it HPI patient has tried power step inserts and states that they aggravate the left foot, she has tried a variety of different creams and ointments and lotions and moisturizers for the right foot which failed to provide any relief or improvement. Patient is anticoagulated with Eliquis. She has historyof right first MTPJ arthrodesis Review of Systems [...] with uninfected necrosis SLE (systemic lupus erythematosus) ([facility]) Sleep apnea 07/29/2012 PAST SURGICAL HISTORY Procedure Laterality Date APPENDECTOMY CARPAL TUNNEL RIGHT WRIST surgical correction COLONOSCOPY 05/10/2019 [facility] COLONOSCOPY GEN ANES 07/23/2020 Dr. Frances/Diverticulosis/Hemorrhoids/ Ulcerative Colitis/Rpt in 2 yrs. COLONOSCOPY SCREENING 03/2023 EGD EUS 01/11/2020 [facility] LASIK Right prior to 1999 MRI [...] every 4 hours as needed for pain. vlrgltr-oyejbfdsl-xhvpwkw D3 500 mg-5 mcg (200 unit) per tablet Take 1 tablet by mouth three times daily. MV with Pav-Aurrrpyh-Zrtdef (CENTRUM SILVER) 0.4 mg-300 mcg- 250 mcg tab Take 1 tablet by mouth once daily. celecoxib (CELEBREX) 200 mg capsule Take 200 mg by mouth twice daily. sucralfate (CARAFATE) 100 mg/mL suspension Take 10 mL by mouth four times daily. atorvastatin (LIPITOR) 40 mg tablet Take 1 tablet by mouth once daily. (Patient taking differently:Take 40 mg by mouth two times a [...] first MTPJ. Mild rocker-bottom appearance of 4-5 TMTleft. Positive pain on palpation across midfoot left, increased with isolated sagittal manipulationand medial and lateral stress. Left second hammertoe deformity. X-Ray: X-rays reviewed from 07/02/2023 positive for severe osteoarthritic changes of Lisfranc's joint bilateral, involving 1-5 left, navicular cuneiform articulation left, 1-3 right with bueh-xq-tyqowgkqk space loss and periarticular subchondral sclerotic changes, cystic changes left Assessment/Plan ASSESSMENT Diagnosis (L84) Pre-ulcerative calluses (primary encounter diagnosis) (M19.072) Osteoarthritis of midtarsal joint of left foot (M19.071) Osteoarthritis of midtarsal joint of right foot No orders found for this visit on 10/09/23. PLAN Reviewed complaint, pathology, etiology, x-rays, anatomy, treatment options conservative and surgical, prognosis, short and long chain beamer expectations, associated with each complaint, finding, related [...] PM Beverly Franco DPM documented in this encounterMartins Ferry Hospital02-15-2024 History of Present illness Narrative* Janis Crenshaw RN - 10/01/2023 9:24 AM EST Since your last infusion, have you: Had [...] or open sores? No documented in this encounterMartins Ferry Hospital02-14-2024 Miscellaneous Notes* Telephone Encounter - Beba Liriano - 09/30/2023 4:03 PM EST Patient calling asking about imaging for pancreas. She was due 07/2023. Asking for order to be placed # [phone] documented in this encounterMartins Ferry Hospital02-14-2024 Miscellaneous Notes* Telephone Encounter - Janis Crenshaw RN - 09/30/2023 1:46 PM EST Spoke with patient on phone and confirmed patient will be in tomorrow for scheduled infusion. * Telephone Encounter - Janis Crenshaw RN - 09/30/2023 10:09 AM EST LMOM for patient to call back and confirm scheduled infusion. documented in this encounterMartins Ferry Hospital02-01-2024 History of Present illness Narrative* Yuriy Conway MD - 09/17/2023 8:50 AM EST Subjective Jesus Wolf is a 68 y.o. [...] machine. She is with morbid obesity and hasbeen trying to lose weight but unsuccessfully. Her medical therapy was reviewed. Her systemic lupushas been stable on medical therapy followed by the [facility]. She has been chronically anticoagulated with Eliquis and has been compliant ASSESSMENT AND PLAN: 1. Paroxysmal atrial fibrillation, status post radiofrequency ablation with pulmonary vein isolation at [facility] in 2019. Now she is back in atrial flutter. She needs cardioversion but will initiate antiarrhythmic therapy with flecainide 100 mg daily and continue metoprolol 150 mg daily.The benefit and potential risks were discussed with the patient who is familiar with this procedurefrom previous experience. 2. Sleep apnea, unable to utilize CPAP machine. She utilizes oxygen at night. 3. Systemic lupus, in remission, on medical therapy. Managed by the [facility] 4. Morbid obesity, patient is trying to [...] status post parathyroidectomy last year at the [facility] with success 10. Ascending aortic aneurysm measured 4.6 cm from echocardiogram September 2021, follow-up echocardiogram in 2021 measured only 3.8 cm Yuriy Conway MD, FACC Review of Systems All other systems reviewed [...] mg) by mouth 2 times a day., Disp:, Rfl: levothyroxine (Synthroid, Levoxyl) 50 mcg tablet, Take 1 tablet (50 mcg) by mouth once daily in themorning. Take before meals., Disp: , Rfl: metoprolol [...] Scribe Attestation By signing my name below, Fercho Sharma LPN , Scribe attest that this documentation has been prepared under the direction and in the presence of Yuriy Conway MD. documented in this encounterTrinity [facility] System Work Phone: 1(104) 136-253602-01-2024 Instructions* Patient Instructions* Buster Clay MA - 09/17/2023 8:50 AM [...] time of your visit. documented in this encounterTrinity Health System Work Phone: 1(746) 281-959301-16-2024 History of Present illness Narrative* Cha Staley, ANTONIO-PLATE EMBOSSER - 09/01/2023 1:00 PM EST Subjective Patient ID: Jesus Wolf is a 68 y.o. female. Worsening cough for a more than a week No unusual fatigue but she is getting more PND and runny nose Headache but minimal sinus pressure Appetite ok taking fluids ok Hoarseness present Taking mucinex She did have an episode of postmenopausal bleeding in July the ultrasound from ER didn't revealanything unusual, she saw Dr Young on f/u he thought everything looked fine on f/u but he is going to do a f/u D&C just to make sure on 09/25 The following portions of the patient's history were reviewed and updated as appropriate: allergies, current medications, past family history, past medical history, past social history, past surgicalhistory, problem list, and medication reconciliation was completed including current medication andpost discharge medication. Review of Systems Constitutional: Negative [...] the morning. Dispense: 7 tablet; Refill: 0 Cha StaleyANTONIO-PLATE EMBOSSER 09/01/23 1350 documented in this encounterGal[facility]12-04-2023 Miscellaneous Notes* Telephone Encounter - Lisa Ramos - 07/20/2023 2:59 PM EST Spoke to patient and she is scheduled for bilateral cortisone injection at [facility] for 08/03/23 documented in this encounterMartins Ferry Hospital11-21-2023 Miscellaneous Notes* Telephone Encounter - Olga Amado - 07/07/2023 3:24 PM EST [facility] requesting call back to schedule (surgery)with Dr. Jones. Left direct number to return call.[phone] documented in this encounterMartins Ferry Hospital11-16-2023 History of Present illness Narrative* Beverly Franco DPM - 07/02/2023 11:37 AM EST SERVICE DATE: July 02, 2023 PCP: Wojciech Treviño MD, DO Subjective Patient ID: Jesus is a 68 year old female. Patient presents today with complaint of pain in her left midfoot on the medial side which started several weeks ago while she is in [place] at the [employer] and on her feet an extensive amount [...] TUNNEL RIGHT WRIST surgical correction COLONOSCOPY 05/10/2019 [facility] COLONOSCOPY GEN ANES 07/23/2020 Dr. Frances/Diverticulosis/Hemorrhoids/ Ulcerative Colitis/Rpt in 2 yrs. COLONOSCOPY SCREENING 03/2023 EGD EUS 01/11/2020 [facility] LASIK Right prior to [...] every 4 hours as needed for pain. dhcdbom-ijstkebqu-mkmkqhv D3 500 mg-5 mcg (200 unit) per tablet Take 1 tablet by mouth three times daily. MV with Whj-Gtiltobn-Gpdrqy (CENTRUM SILVER) 0.4 mg-300 mcg- 250 mcg tab Take 1 tablet by mouth once daily. celecoxib (CELEBREX) 200 mg capsule Take 200 mg by mouth twice daily. sucralfate (CARAFATE) 100 mg/mL suspension Take 10 mL by mouth four times daily. atorvastatin (LIPITOR) 40 mg tablet Take 1 tablet by mouth once daily. (Patient taking differently:Take 40 mg by mouth two times a [...] left X-Ray: Severe midfoot osteoarthritic changes with vpth-uq-jgdn appearance, periarticular subchondral sclerotic and cystic changes [...] options conservative and surgical, prognosis, short and long chain beamer expectations, and benefit, and potential risks associated with complaints as well as each related treatment option. Dispensed power step inserts to replace older worn custom inserts, recommend use of Voltaren gel for symptomatic left midfoot complaint, also discussed with patient return to Dr. Jones for image guided intra- articular injections versus fusions. Reduce the tissue around the fifth toe trophic area with a sanding disc and recommended patient initiate dressing with Xeroform at that site. FOLLOW-UP: 2 months SIGNATURE: Beverly Franco DPM PATIENT NAME: Jesus Wolf DATE: July 02, 2023 TIME: 11:38 AM Beverly Franco DPM documented in this encounterMartins Ferry Hospital11-15-2023 History of Present illness Narrative* Coco Guzman RN - 07/01/2023 8:57 AM EST Since your last infusion, have you: Had [...] or open sores? No documented in this encounterMartins Ferry Hospital10-31-2023 Miscellaneous Notes* Telephone Encounter - Bang Spears RN - 06/16/2023 11:54 AM EDT Pharmacy escripts requesting the following refill: Requested Prescriptions Pending Prescriptions Disp Refills pantoprazole DR (PROTONIX) 40 mg tablet [Pharmacy Med Name: PANTOPRAZOLE SOD DR 40 MG TAB] 60 tablet 3 Sig: take 1 tablet by mouth twice a day Please review and advise. Bang Spears RN documented in this encounterMartins Ferry Hospital10-26-2023 Miscellaneous Notes* Telephone Encounter - Heather Gruber PA-C - 06/11/2023 4:06 PM EDT Prescription sent to the pharmacy Heather Gruber PA-C * Telephone Encounter - Agatha Wing - 06/10/2023 11:09 AM EDT Patient needs to have a dental procedure and needs an antibiotic. Patient states you are the last orthopedic surgeon she seen. Please send prescription to the [facility] in [facility]. patient would like to be notified when prescription has been sent in. Please advise documented in this encounterMartins Ferry Hospital09-01-2023 Miscellaneous Notes* Telephone Encounter - Bang Spears RN - 04/17/2023 9:02 AM EDT Pharmacy escripts requesting the following refill: Requested Prescriptions Pending Prescriptions Disp Refills colestipol (COLESTID) 1 gram tablet [Pharmacy Med Name: COLESTIPOL HCL 1 GM TABLET] 360 tablet 3 Sig: TAKE 2 TABLETS BY MOUTH TWICE A DAY Please review and advise. Bang Spears RN documented in this encounterMartins Ferry Hospital08-30-2023 History and physical note * Dione Frances MD - 04/15/2023 9:20 AM EDT FOLLOW UP OFFICE VISIT REASON FOR VISIT: follow up HPI: Jesus Wolf is a 68 year old female who presents for follow up UC. After colonoscopy 2 weeks ago, she was in the ER several times with migraine headaches. She was in the [facility] [address] on vacation. It is likely these were [...] we will start colestipol should there be acomponent of bile acid diarrhea. Dr. Underwood has been following her IPMN and is planning on repeating her right upper quadrant ultrasound as there was concern for gallstone pancreatitis. -Ultrasound gallbladder -Follow up after ultrasound with Dr. Underwood -If still with epigastric pressure pending ultrasound result and Dr. underwood follow up, we can consider endoscopy -Continue [...] Abs Lymph 1.00 - 4.00 k/uL 2.04 [place]% % 11.0 Abs [place] <0.87 k/uL 0.92 (H) Eosin% % 3.1 [...] TUNNEL RIGHT WRIST surgical correction COLONOSCOPY 05/10/2019 [facility] COLONOSCOPY GEN ANES 07/23/2020 Dr. Frances/Diverticulosis/Hemorrhoids/ Ulcerative Colitis/Rpt in 2 yrs. EGD EUS 01/11/2020 [facility] LASIK Right prior to 1999 MRI PANC/JEANIE WO/W IVCON 12/20/2019 [facility] CYSTECTOMY PAST SURGICAL HISTORY OF 07/2013 bilateral foot procedure, [place] PAST SURGICAL HISTORY OF Ablation X2 TONSILLECTOMY [...] every 4 hours as needed for pain. ptvrjni-qeqtnoikj-pzafdko D3 500 mg-5 mcg (200 unit) per tablet Take 1 tablet by mouth three times daily. MV with Rij-Rcnrfpan-Yyhptc (CENTRUM SILVER) 0.4 mg-300 mcg- 250 mcg tab Take 1 tablet by mouth once daily. celecoxib (CELEBREX) 200 mg capsule Take 200 mg by mouth twice daily. sucralfate (CARAFATE) 100 mg/mL suspension Take 10 mL by mouth four times daily. atorvastatin (LIPITOR) 40 mg tablet Take 1 tablet by mouth once daily. (Patient taking differently:Take 40 mg by mouth twice daily.) Bifidobacterium [...] No history of dysuria, frequency or incontinence TURNAROUND PLANNER: Negative for abnormal vaginal bleeding, abnormal vaginal [...] and counseling and educating the patient/family/caregiver. Dione Frances MD, MPH Gastroenterology and Hepatology This note was partially generated using the Trendabl voice recognition system, there may be some incorrect words, spellings, and punctuation that were not noted in checking the note before saving documented in this encounterMartins Ferry Hospital08-30-2023 Instructions* Patient Instructions* Dione Frances MD - 04/15/2023 9:13 AM EDT Continue mesalamine Continue canasa suppositories (can go down to as needed eventually) Continue protonix Continue colestipol documented in this encounterMartins Ferry Hospital08-25-2023 History of Present illness Narrative* Nadege Murphy, - 04/10/2023 9:30 AM EDT Images from the original note were not included. [facility] DEPARTMENT OF RHEUMATIC [...] TUNNEL RIGHT WRIST surgical correction COLONOSCOPY 05/10/2019 [facility] COLONOSCOPY GEN ANES 07/23/2020 Dr. Frances/Diverticulosis/Hemorrhoids/ Ulcerative Colitis/Rpt in 2 yrs. EGD EUS 01/11/2020 [facility] LASIK Right prior to 1999 MRI PANC/JEANIE WO/W IVCON 12/20/2019 OVARIAN CYSTECTOMY PAST SURGICAL HISTORY OF 07/2013 bilateral foot procedure, [place] PAST SURGICAL HISTORY OF Ablation X2 TONSILLECTOMY [...] by mouth twice a day with food^Disp: 180tablet^Rfl: 2 cephALEXin (KEFLEX) 500 mg capsule^Take 1 capsule by mouth four times daily.^Disp: 28 capsule^Rfl: 0 metoprolol succinate ER (TOPROL XL) 50 mg 24 hr tablet^TAKE 1 TABLET BY MOUTH IN THE MORNING AND 2 TABLETS BY MOUTH IN THE EVENING^Disp: 270 tablet^Rfl: 3 diclofenac (VOLTAREN) 1 % topical gel^Apply 2 g to affected area four times daily.^Disp: 200 g^Rfl:2 colestipol (COLESTID) 1 gram tablet^TAKE 2 TABLETS [...] 4 hours as needed for pain.^Disp: ^Rfl: pvlrphz-hvpcqtixg-bfkgawp D3 500 mg-5 mcg (200 unit) per tablet^Take 1 tablet by mouth three times daily.^Disp: ^Rfl: MV with Urk-Jqbsaklr-Jsyoqp (CENTRUM SILVER) 0.4 mg-300 mcg- 250 mcg [...] mg/kg iv infusions every 3 months. We havediscussed the risks and toxicities associated with the use of these medications and the appropriatelab monitoring. We will obtain SLE labs today. 2. 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 I have prescribed for her a course of Voltaren Gel 1% for her to use four times/daily. Health Maintenance: Vaccinations: Prevnar 20 given 01/2023. She is otherwise up to date with all vaccines. Advised COVIDbooster this fall. Bone Health: Seeing metabolic Bone. HCQ monitorin10/2022. Scanned into documents. RTC 6 months. Nadege Murphy D.O. Rheumatology Staff documented in this encounterMartins Ferry Hospital08-23-2023 Miscellaneous Notes* Telephone Encounter - Bang Spears RN - 04/08/2023 11:45 AM EDT Spoke to the patient regarding results and recommendations. Verbalized understanding. With much discussion, pt chose suppository. Pt also states she has been in the ER 3 times since procedure with horrible migraine . I advise her that migraines could have been triggered by dehydration. When at the ER last time, her magnesium was low. Pt following up with PCP. Dr. Frances, please review the order and sign Thank you, Bang Spears RN * Telephone Encounter - aBng Spears RN - 04/08/2023 11:44 AM EDT ----- Message from Dione Frances MD sent at 04/06/2023 11:12 AM EDT ----- Normal ileal biopsies and normal colon biopsies except for the rectum, continue Lialda, recommend rectal topical therapy which she prefers suppository or enema? documented in this encounterMartins Ferry Hospital08-17-2023 History and physical note * Dione Frances MD - 04/02/2023 7:30 AM EDT Pre procedure H&P HPI 68 year old [...] PLAN 1. Proceed with Colonoscopy SIGNATURE: Dione Frances MD PATIENT NAME: Jesus Wolf DATE: April 02, 2023 TIME: 7:38 AM documented in this encounterMartins Ferry Hospital08-03-2023 History of Present illness Narrative* Chantelle Dumont RN - 03/19/2023 9:56 AM EDT Since your last infusion, have you: Had [...] or open sores? No documented in this encounterMartins Ferry Hospital08-02-2023 Miscellaneous Notes* Telephone Encounter - Coco Guzman RN - 03/18/2023 3:15 PM EDT Spoke with pt; confirmed infusion for tomorrow. Denies s/sx of infection or antibiotics at this time. documented in this encounterMartins Ferry Hospital07-31-2023 Miscellaneous Notes* Telephone Encounter - Bang Spears RN - 03/16/2023 10:32 AM EDT Pharmacy escripts requesting the following refill: Requested Prescriptions Pending Prescriptions Disp Refills Mesalamine (LIALDA) 1.2 gram EC tablet [Pharmacy Med Name: MESALAMINE DR 1.2 GM TABLET] 360 tablet 1 Sig: take 4 tablets by mouth once daily Please review and advise. Bang Spears RN documented in this encounterMartins Ferry Hospital07-27-2023 History of Present illness Narrative* Beverly Franco DPM - 03/12/2023 9:47 AM EDT SERVICE DATE: March 12, 2023 PCP: Wojciech Treviño DO Subjective Patient ID: Jesus is a 68 year old female. Patient presents for follow-up of ulcer at tip of rightsecond toe and preulcerative calluses third toe stating [...] TUNNEL RIGHT WRIST surgical correction COLONOSCOPY 05/10/2019 [facility] COLONOSCOPY GEN ANES 07/23/2020 Dr. Frances/Diverticulosis/Hemorrhoids/ Ulcerative Colitis/Rpt in 2 yrs. EGD EUS 01/11/2020 [facility] LASIK Right prior to [...] by mouth twice a day with food^Disp: 180tablet^Rfl: 2 cephALEXin (KEFLEX) 500 mg capsule^Take 1 capsule by mouth four times daily.^Disp: 28 capsule^Rfl: 0 metoprolol succinate ER (TOPROL XL) 50 mg 24 hr tablet^TAKE 1 TABLET BY MOUTH IN THE MORNING AND 2 TABLETS BY MOUTH IN THE EVENING^Disp: 270 tablet^Rfl: 3 diclofenac (VOLTAREN) 1 % topical gel^Apply 2 g to affected area four times daily.^Disp: 200 g^Rfl:2 colestipol (COLESTID) 1 gram tablet^TAKE 2 TABLETS [...] 4 hours as needed for pain.^Disp: ^Rfl: kajvqrp-ejupmirco-rdgqlkc D3 500 mg-5 mcg (200 unit) per tablet^Take 1 tablet by mouth three times daily.^Disp: ^Rfl: MV with Zzp-Pszbdvan-Ivrdpa (CENTRUM SILVER) 0.4 mg-300 mcg- 250 mcg [...] keratotic area area was performed. This incidental serviceis integral to the evaluation and management visit in order to appropriately manage and treat the patient (for their complaint or for this visit). Patient instructed to use scant amount of Vaseline daily tip of second toe and continue to accommodate with appropriate shoes. Medical image was obtained today and compared bgop-ol-vjha with previous image, findings and progress were discussed with patient. FOLLOW-UP: 10 weeks SIGNATURE: Beverly Franco DPM PATIENT NAME: Jesus Wolf DATE: March 12, 2023 TIME: 9:48 AM Beverly Franco DPM documented in this encounterMartins Ferry Hospital07-05-2023 Miscellaneous Notes* Telephone Encounter - Mariana Mendez - 2023 3:08 PM EDT Spoke to patient offered 03/09 or 03/23 at [place] patient declined as she has commitments on those datesas well. Patient is on wait list * Telephone Encounter - Sandra Irving Pss - 2023 2:55 PM EDT Jesus Holguin Luciano is calling Dione Frances MD today with concern regarding Appointment. Patient hoping to be able to have this done in [place], and when the soonest that would be. When I tried rescheduled it denied me. Please advise and call patient. Thank you! Patient has been identified by name and birthdate. Person calling: self Call patient at: at home [phone] (home) [phone] (cell) Was an appointment scheduled: No Closing statement: Results or non-symptom based questions: Thank you for calling [facility], your call will be returned within the next business day. Sandra Irving Pss documented in this encounterMartins Ferry Hospital07-05-2023 Miscellaneous Notes* Telephone Encounter - Mariana Mendez - 2023 1:57 PM EDT Spoke to patient she is scheduled for colonoscopy with Dr Frances at on 04/02 offered sooner patient unable to make dates * Telephone Encounter - Bang Spears RN - 2023 1:42 PM EDT Images from the original note were not included. Dione Frances MD You 1 hour ago (12:19 PM) I think we need to assess her disease since her FCP remains significantly elevated Spoke to the patient. Pt agrees with planning colonoscopy. Dr. Frances, please review the order and sign. Conduit Mechanic, please call the patient to make arrangements. Thank you, Bang Spears RN * Telephone Encounter - Bang Spears RN - 02/13/2023 3:03 PM EDT Spoke to the patient. She stats she is Feeling ok Pt is having 6-8 stools a day, mostly soft diarrhea She states this is the same bowel habits from before, no change. No blood. No other symptoms. Dr. Frances, do you still want colonoscopy? Please advise. Thank you, Bang Spears RN * Telephone Encounter - Bang Spears RN - 02/13/2023 3:02 PM EDT ----- Message from Dione Frances MD sent at 02/11/2023 11:33 AM EDT ----- Fcp still elevated, how is she feeling? May need to perform colonoscopy in the next 1-2 months documented in this encounterMartins Ferry Hospital07-03-2023 Miscellaneous Notes* Telephone Encounter - Tarik Valdivia RN - 02/16/2023 1:14 PM EDT Most recent Rheumatology visit: 02/04/2023 (with Nadege Murphy) Recent Office Visits - This Specialty 02/04/2023 Systemic lupus erythematosus, unspecified SLE type, unspecified organ involvement status(HCC) Rheumatology Nadege Susan Radames, 10/16/2022 Osteopenia, unspecified location [facility] Julia [...] Expires Ordered Last Rel. C3 COMPLEMENT BLD [[id number]] 4/6 Every 4 months 03/13/23 03/13/22 06/30/22 Auth. provider: Evelin Alicea MD Assoc. diagnoses: Membranous lupus nephritis syndrome (HCC), High risk medication use, Systemic lupus erythematosus, unspecified SLE type, unspecified organ involvement status (HCC) C4 COMPLEMENT BLD [[id number]] 4/6 Every 4 months 03/13/23 03/13/22 06/30/22 [...] [Pharmacy Med Name: HYDROXYCHLOROQUINE 200 MG TAB] 180tablet 2 Sig: take 1 tablet by mouth twice a day with food documented in this encounterMartins Ferry Hospital06-29-2023 History of Present illness Narrative* Beverly Franco, DPM - 02/12/2023 11:42 AM EDT SERVICE DATE: February 12, 2023 PCP: Wojciech Treviño MD, DO Subjective Patient ID: Jseus is a 67 year old female. Patient [...] and now has a wound at that site.Patient is anticoagulated with Eliquis. Patient has been [...] TUNNEL RIGHT WRIST surgical correction COLONOSCOPY 05/10/2019 [facility] COLONOSCOPY GEN ANES 07/23/2020 Dr. Frances/Diverticulosis/Hemorrhoids/ Ulcerative Colitis/Rpt in 2 yrs. EGD EUS 01/11/2020 [facility] LASIK Right prior to [...] to affected area four times daily.^Disp: 200 g^Rfl:2 colestipol (COLESTID) 1 gram tablet^TAKE 2 TABLETS [...] 4 hours as needed for pain.^Disp: ^Rfl: mcdiool-extelbovj-gfwwufd D3 500 mg-5 mcg (200 unit) per tablet^Take 1 tablet by mouth three times daily.^Disp: ^Rfl: MV with Nsq-Urmwtbjs-Uoyfpz (CENTRUM SILVER) 0.4 mg-300 mcg- 250 mcg tab^Take 1 tablet by mouth once daily.^Disp: ^Rfl: celecoxib (CELEBREX) 200 mg capsule^Take 200 mg by mouth twice daily.^Disp: ^Rfl: hydrOXYchloroQUINE (PLAQUENIL) 200 mg tablet^take 1 tablet by mouth twice a day with food^Disp: 180tablet^Rfl: 2 sucralfate (CARAFATE) 100 mg/mL suspension^Take 10 [...] DIP joint. Keratotic tissue underlying right first MTPJwith no michael breakdown Clinical: Mild edema right [...] etiology, anatomy, treatment options, prognosis, short and long termexpectations, and potential risks and complications. New peg [...] AM Beverly Franco DPM documented in this encounterMartins Ferry Hospital06-26-2023 Miscellaneous Notes* Telephone Encounter - Hallie Young APRN.RESPIRATORY CLINICIAN - 02/09/2023 4:35 PM EDT Refill ordered. Patient will need to be [...] [Pharmacy Med Name: METOPROLOL SUCC ER 50 MGTAB] 270 tablet 3 Sig: TAKE 1 TABLET BY MOUTH IN THE MORNING AND 2 TABLETS BY MOUTH IN THE EVENING Hallie Young APRN.JOHNATHAN * Telephone Encounter - Madeline Vaca MA - 02/09/2023 10:03 AM EDT Tom 01/01/22 siddhartha Nov - none documented in this encounterMartins Ferry Hospital06-26-2023 Miscellaneous Notes* Telephone Encounter - Dony Menjivar RN - 02/09/2023 1:29 PM EDT Phoned pt and spoke with her. Dr. Booker has reviewed her labs and they are good. Dr. Booker did notice her creatinine had gone up a bit and asked that Jesus stays hydrated. Pt states she will. Dony Menjivar RN documented in this encounterMartins Ferry Hospital06-21-2023 Instructions* Patient Instructions* Nadege Murphy DO - 02/04/2023 2:00 PM EDT Stop Cellcept (mycophenolate) Blood work and urine today on the first floor Continue Plaquenil 2 tablets/daily I will see you back in 2 months for follow up. documented in this encounterMartins Ferry Hospital06-21-2023 History of Present illness Narrative* Nadege Murphy DO - 02/04/2023 1:00 PM EDT Images from the original note were not included. [facility] DEPARTMENT OF RHEUMATIC [...] membranes, crescents, wireloops or hyaline thrombi. There isminimal, patchy tubulointerstitial atrophy and fibrosis and a [...] TUNNEL RIGHT WRIST surgical correction COLONOSCOPY 05/10/2019 [facility] COLONOSCOPY GEN ANES 07/23/2020 Dr. Frances/Diverticulosis/Hemorrhoids/ Ulcerative Colitis/Rpt in 2 yrs. EGD EUS 01/11/2020 [facility] LASIK Right prior to 1999 MRI PANC/JEANIE WO/W IVCON 12/20/2019 OVARIAN CYSTECTOMY PAST SURGICAL HISTORY OF 07/2013 bilateral foot procedure, [place] PAST SURGICAL HISTORY OF 2018,2019 Ablation X2 TONSILLECTOMY HX FamHx: FAMILY HISTORY [...] once daily.^Disp: 360 tablet^Rfl: 1 MV with Hcf-Arfpvagc-Igdtwj (CENTRUM SILVER) 0.4 mg-300 mcg- 250 mcg tab^Take 1 tablet by mouth once daily.^Disp: ^Rfl: mycophenolate Mofetil (CELLCEPT) 500 mg tablet^take 1 tablet by mouth daily^Disp: 30 tablet^Rfl: 11 celecoxib (CELEBREX) 200 mg capsule^Take 200 mg by mouth twice daily.^Disp: ^Rfl: hydrOXYchloroQUINE (PLAQUENIL) 200 mg tablet^take 1 tablet by mouth twice a day with food^Disp: 180tablet^Rfl: 2 metoprolol succinate ER (TOPROL XL) 50 [...] mouth four times daily for 14 days, THEN1 capsule twice daily for 7 days, THEN [...] 4 hours as needed for pain.^Disp: ^Rfl: bdohdae-gdygbrqdw-tdsybhp D3 500 mg-5 mcg (200 unit) per [...] 74 - 99 mg/dL Final Comment: The [place] [employer] (ADA) provides guidance for cutoff values for fasting glucose andrandom glucose. The ADA defines fasting as no [...] Standards of Medical Care in Diabetes 2016, [place] [employer]. Diabetes Care. 2016.39(Suppl 1). AST [...] Scanned into documents. RTC 3 months. Nadege Murphy DO documented in this encounterMartins Ferry Hospital06-08-2023 History of Present illness Narrative* Beverly Franco DPM - 01/22/2023 10:40 AM EDT Images from the original note were [...] with uninfected necrosis SLE (systemic lupus erythematosus) ([facility]) Sleep apnea 07/29/2012 PAST SURGICAL HISTORY Procedure Laterality Date APPENDECTOMY CARPAL TUNNEL RIGHT WRIST surgical correction COLONOSCOPY 05/10/2019 [facility] COLONOSCOPY GEN ANES 07/23/2020 Dr. Frances/Diverticulosis/Hemorrhoids/ Ulcerative Colitis/Rpt in 2 yrs. EGD EUS 01/11/2020 [facility] LASIK Right prior to [...] mouth four times daily for 14 days, THEN1 capsule twice daily for 7 days, THEN [...] 4 hours as needed for pain.^Disp: ^Rfl: fbmmbbz-cxraxvgcg-xhshvze D3 500 mg-5 mcg (200 unit) per tablet^Take 1 tablet by mouth three times daily.^Disp: ^Rfl: MV with Xwg-Bcocxecv-Xkmzza (CENTRUM SILVER) 0.4 mg-300 mcg- 250 mcg tab^Take 1 tablet by mouth once daily.^Disp: ^Rfl: mycophenolate Mofetil (CELLCEPT) 500 mg tablet^take 1 tablet by mouth daily^Disp: 30 tablet^Rfl: 11 celecoxib (CELEBREX) 200 mg capsule^Take 200 mg by mouth twice daily.^Disp: ^Rfl: hydrOXYchloroQUINE (PLAQUENIL) 200 mg tablet^take 1 tablet by mouth twice a day with food^Disp: 180tablet^Rfl: 2 metoprolol succinate ER (TOPROL XL) 50 [...] AM Beverly Franco DPM documented in this encounterMartins Ferry Hospital05-30-2023 Miscellaneous Notes* Telephone Encounter - Bang Spears RN - 01/13/2023 9:17 AM EDT Pharmacy escripts requesting the following refill: Requested Prescriptions Pending Prescriptions Disp Refills colestipol (COLESTID) 1 gram tablet [Pharmacy Med Name: COLESTIPOL HCL 1 GM TABLET] 120 tablet 3 Sig: TAKE 2 TABLETS BY MOUTH TWICE A DAY Please review and advise. Bang Spears RN documented in this encounterMartins Ferry Hospital05-05-2023 Miscellaneous Notes* Telephone Encounter - Bang Spears RN - 12/19/2022 3:23 PM EDT Images from the original note were not included. Dione Frances MD You 53 minutes ago (2:29 PM) Lets do stool studies Dr. Frances, please review the orders and sign. Thank you, Bang Spears RN * Telephone Encounter - Bang Spears RN - 12/19/2022 12:41 PM EDT Pt is taking Colestipol BID. Pt on wait list for sooner apt. Please advise if any. Thank you, Bang Spears RN documented in this encounterMartins Ferry Hospital05-01-2023 History of Present illness Narrative* Coco Guzman RN - 12/15/2022 9:53 AM EDT Since your last infusion, have you: Had [...] or open sores? No documented in this encounterMartins Ferry Hospital04-28-2023 Miscellaneous Notes* Telephone Encounter - Dony Fowler - 12/12/2022 1:54 PM EDT Patient returning call regarding the below message left. Advised of the below and Patient states she is confirming her appointment for 12/15/22 and she has no infections. Patient understood and no further questions. * Telephone Encounter - Chantelle Dumont RN - 12/12/2022 12:22 PM EDT Call placed to patient with no answer. LMOM to call back and confirm or to log in to my chart. documented in this encounterMartins Ferry Hospital04-11-2023 Miscellaneous Notes* Telephone Encounter - Bang Spears RN - 11/25/2022 8:51 AM EDT Pharmacy escripts requesting the following refill: Requested Prescriptions Pending Prescriptions Disp Refills ferrous sulfate (IRON) 325 mg (65 mg iron) tablet 90 tablet 3 Sig: Take 1 tablet by mouth once daily. Please review and advise. Bang Spears RN documented in this encounterMartins Ferry Hospital03-15-2023 Miscellaneous Notes* Telephone Encounter - Bang Spears RN - 10/29/2022 12:30 PM EDT Pharmacy escripts requesting the following refill: Requested Prescriptions Pending Prescriptions Disp Refills pantoprazole DR (PROTONIX) 40 mg tablet 60 tablet 3 Sig: Take 1 tablet by mouth twice daily. Please review and advise. Bang Spears RN documented in this encounterMartins Ferry Hospital03-15-2023 Miscellaneous Notes* Telephone Encounter - Bang Spears RN - 10/29/2022 11:23 AM EDT Images from the original note were not included. Dione Frances MD You 1 hour ago (9:32 AM) Lets restart vanco with a long taper, she needs to keep us updated on how it is going Dr. Frances, please review the orders and sign. Thank you, Bang Spears RN * Telephone Encounter - Bang Spears RN - 10/28/2022 4:[address] Frances, please review updated [employer] message. If you agree with retesting, please sign order. Thank you, Bang Spears RN * Telephone Encounter - Rachelle Downs - 10/24/2022 10:28 AM EST Patient calling to follow up to message documented in this [facility]03-10-2023 Miscellaneous Notes* Telephone Encounter - Lisa Ramos - 10/24/2022 9:16 AM EST Spoke to patient and she is scheduled for bilataral injections at [facility] for this 10/27/22 under local. Per patient, she does not need a post-op visit. documented in this encounterMartins Ferry Hospital03-08-2023 Miscellaneous Notes* Telephone Encounter - Bang Spears RN - 10/22/2022 11:05 AM EST [facility] pharmacy is also out of Colestipol. Pt called and found [facility] in [place]. Dr. Frances, please review the order and sign. Thank you, .me * Telephone Encounter - Rachelle Downs - 10/22/2022 8:48 AM EST Patient calling again Please call into [facility] [place] * Telephone Encounter - Rachelle Downs - 10/21/2022 11:56 AM EST Patient calling to follow up to message documented in this encounterMartins Ferry Hospital03-07-2023 Miscellaneous Notes* Telephone Encounter - Lisa Ramos - 10/21/2022 3:58 PM EST Spoke to patient and let her know that I will call her to schedule the procedure Dr. Jones offered as soon as I receive the surgery information from him. In the meantime, I provided my direct number in surgery scheduling so she and I can keep in touch [phone]. documented in this encounterMartins Ferry Hospital03-03-2023 Miscellaneous Notes* Telephone Encounter - Bang Spears RN - 10/17/2022 9:00 AM EST Pt states [facility] in [place] has colestipol Dr. Frances, please review the order and sign. Thank you, Bang Spears RN * Telephone Encounter - Bang Spears RN - 10/16/2022 3:15 PM EST Images from the original note were not included. Dione Frances MD You 3 hours ago (11:20 AM) Is there another pharmacy she can go to? I dont think she did as well with cholestyramine * Telephone Encounter - Bang Spears RN - 10/16/2022 11:[address] Frances, please review the pt message and advise. If you are ok with cholestyramine, please sign order. Thank you, Bang Spears RN documented in this encounterMartins Ferry Hospital03-02-2023 History of Present illness Narrative* Julia Ann PA-C - 10/16/2022 9:30 AM EST Images from the original note were not included. Osteoporosis and Metabolic Bone Disease Date of Service: 10/16/2022 Patient: Jesus Wolf Medical Record: [id number] Primary Care Physician: Wojciech Treviño MD, DO [...] use (Comment: Daily steroid uses from about 3340-4181) Previous use No rheumatoid arthritis Secondary osteoporosis [...] DATE OF EXAM: Mar 13 2022 3:21PM [facility] 0804 - BD DXA - AXIAL SKELETON -NB / PROCEDURE REASON: Asymptomatic postmenopausal status * * * * Physician Interpretation * * * * EXAMINATION: DXA BONE DENSITOMETRY BD DXA - AXIAL SKELETON -NB CLINICAL HISTORY: DIAGNOSTIC Asymptomatic postmenopausal status . DXA Model: [employer] Advance (S/N: [id number]) SITE SCANNED: Lumbar Spine, Left Hip, & [...] should take calcium, the recommended dose is 3044-4685 mg per day along with 800-1000 IU vitamin D (some patients may require higher doses of vitamin D). LIMITATIONS: - Degenerative changes in the spine may artificially increase bone mass and make the reading unreliable FOLLOW-UP: - 2-years cc. Dr. Hardin Trans Router: findin Transcribe Date/Time: Mar 13 2022 3:34P [...] Frequency: Continuous PROMIS Assessments PROMIS Assessments 05/08/2022 07/17/202210/09/2022 Physical Health Percentile 15 % 7 % 7 % Mental Health Percentile 26 % 9 % 34 % Pain Score 3 2 3 Pain Interference Percentile 12 % - 10 % Fatigue Percentile 8 % - 24 % Physical Function Percentile 7 % - 7 % 3 [place] Activities [...] Severity RAPID-3 Weighed Score 12/14/2018 08/24/2019 10/21/2019 3 Weighed Score 4.9 4.9 4.7 PHQ-9 [...] TUNNEL RIGHT WRIST surgical correction COLONOSCOPY 05/10/2019 [facility] COLONOSCOPY GEN ANES 07/23/2020 Dr. Frances/Diverticulosis/Hemorrhoids/ Ulcerative Colitis/Rpt in 2 yrs. EGD EUS 01/11/2020 [facility] LASIK Right prior to 1999 MRI PANC/JEANIE WO/W IVCON 12/20/2019 OVARIAN CYSTECTOMY PAST SURGICAL HISTORY OF 07/2013 bilateral foot procedure, [place] PAST SURGICAL HISTORY OF 2018,2019 Ablation X2 [...] - Calcium Replacement/Vitamin D Combinations Start End dmkbcsm-pmtywfypy-btgjede D3 500 mg-5 mcg (200 unit) per tablet 08/27/2022 Sig - Route: Take 1 tablet by mouth three times daily. - ORAL Class: OTC Vitamins - D Derivatives Start End Cholecalciferol, Vitamin D3, 2,000 unit cap Sig - Route: Take by mouth once daily. - ORAL Class: Historical Med Multivitamin and Mineral Combinations Start End MV with Bzn-Qipymmyk-Dihcfe (CENTRUM SILVER) 0.4 mg-300 mcg- 250 mcg tab Sig - Route: Take 1 tablet by mouth once daily. - ORAL Class: Historical Med Minerals and Electrolytes - Calcium Replacement/Vitamin D Combinations Start End uheanlu-vqtvcsuwe-emtcyac D3 500 mg-5 mcg (200 unit) per [...] needed (mouth or hand numbness or tingling). auatiey-oiryfrhka-pbqbacw D3 500 mg-5 mcg (200 unit) per tablet Take 1 tablet by mouth three times daily. MV with Crv-Tovqdqqy-Lzfmpp (CENTRUM SILVER) 0.4 mg-300 mcg- 250 mcg [...] Latest Ref Rng & Units 06/30/2022 07/31/2022 08/28/202209/09/2022 PTH 15 - 65 pg/mL - 99(H) [...] Fosamax from 02/2010-04/2010 & 10/2017-10/2019 and Boniva from04/2010-06/2012. Currently on Fosamax since 04/2022 Discussed 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, [...] use (Comment: Daily steroid uses from about 9381-4527) Previous use No rheumatoid arthritis Secondary osteoporosis Malabsorption No alcohol use more than 3 units per day FRAX (WHO 10 Year Fracture Risk) Date of FRAX assessment: 05/12/22 Hip: 1.6% Major Osteoporotic: 10% Diagnoses: (M85.80) Osteopenia, unspecified location (primary encounter diagnosis) (E89.2) S/P parathyroidectomy ([facility]) (Z79.83) halfway (current) use of 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 Plan: Continue Fosamax. [...] routine health maintenance advised. Orders this visit: [facility] on 10/16/22 alendronate (FOSAMAX) 70 mg tablet Return in about 6 months (around 04/18/2023). I spent a total of 21 minutes on the date of the service which included preparing to see the patient, scfz-ad-jmud patient care, completing clinical documentation, obtaining and/or reviewing separately obtained history, performing a medically appropriate examination, and counseling and educating the patient/family/caregiver. Julia Ann PA-C Date: October 16, 2022 documented in this encounterMartins Ferry Hospital02-15-2023 Miscellaneous Notes* Telephone Encounter - Bang Spears RN - 10/01/2022 2:57 PM EST C Diff Toxin A/B - positive Pt dc on flagyl 500 mg TID x [address] Frances, per message below, please review the order and sign. Thank you, Bang Spears RN * Telephone Encounter - Bang Spears RN - 10/01/2022 2:56 PM EST Images from the original note were not included. Dione Frances MD You Yesterday (2:12 PM) We should switch to vanco * Telephone Encounter - Bang Spears RN - 10/01/2022 10:15 AM EST Some testing in CareEverywhere. Release sent. Awaiting full records report. Bang Spears RN * Telephone Encounter - Bang Spears RN - 09/30/2022 1:[address] Frances, just [facility]. Thank you, Bang Spears RN documented in this encounterMartins Ferry Hospital02-08-2023 Miscellaneous Notes* Telephone Encounter - Neris Shannon LPN - 09/24/2022 9:14 AM EST Spoke with patient. Patient will no longer follow with either Dr. Mcfadden or Dr. Martins. No explanation given. Will contact new provider office for refills. * Telephone Encounter - Keyanna Carter APRN.CNP - 09/22/2022 2:58 PM EST Patient requesting prescription refill. She needs some updated lab work also verify who patient is following with. She has seen Dr. Mcfadden however, most recently has seen Dr. Martins. Needs to schedulea follow-up visit. * Telephone Encounter - Neris Shannon LPN - 09/22/2022 8:33 AM EST Last OV:10/2021 No future appt noted. Outside labs noted 09/10/2022: Contains abnormal data LIPID PANEL (EXTERNAL) Order: [id number] Component Ref Range & Units 12 d [...] 1.0 - 5.0 2.6 documented in this encounterMartins Ferry Hospital02-06-2023 Miscellaneous Notes* Telephone Encounter - Bang Spears RN - 09/22/2022 9:11 AM EST Pharmacy escripts requesting the following refill: Requested Prescriptions Pending Prescriptions Disp Refills Mesalamine (LIALDA) 1.2 gram EC tablet 360 tablet 1 Sig: Take 4 tablets by mouth once daily. Please review and advise. Bang Spears RN documented in this encounterMartins Ferry Hospital01-30-2023 Miscellaneous Notes* Telephone Encounter - Monica Booker MD - 09/15/2022 11:15 AM EST Images from the original note were not included. ENDOCRINE SURGERY POST OP FOLLOW UP Name: Jesus Wolf Date: September 15, 2022 PROCEDURE: parathyroidectomy Patient is doing well overall. Voice is strong and normal. Reviewed pathology hypercellular Reviewed labs Ca 9.2 PTH 27 Incision care reviewed Plan: Drop Oscal daily Repeat labs in six months SIGNATURE: Monica Booker MD documented in this encounterMartins Ferry Hospital01-30-2023 History of Present illness Narrative* Hallie Gastelum RN - 09/15/2022 10:40 AM EST Since your last infusion, have you: Had [...] or open sores? No documented in this encounterMartins Ferry Hospital01-27-2023 Miscellaneous Notes* Telephone Encounter - Jessica Rodríguez RN - 09/12/2022 2:16 PM EST I spoke to Jesus and she will be coming for her infusion on Thursday09-15-22. She states that she had parathyroid surgery since her last infusion. She had a follow up with her PCP, and her incision ishealed. She was not on any antibiotics for this procedure. She denies having been sick or on any recent antibiotics. documented in this encounterMartins Ferry Hospital01-25-2023 Miscellaneous Notes* Telephone Encounter - Bang Spears RN - 09/10/2022 3:14 PM EST Patient requesting the following refill: Requested Prescriptions Pending Prescriptions Disp Refills colestipol (COLESTID) 1 gram tablet 120 tablet 3 Sig: Take 2 tablets by mouth twice daily. Please review and advise. Bang Spears RN * Telephone Encounter - Alejandra Tian Ma - 09/10/2022 2:46 PM EST Jesus Wolf is calling in for a refill on her prescription of Colestipol 1gm - 2 tablets BID and would like it to go to [facility] pharmacy. documented in this encounterMart[facility]01-23-2023 Miscellaneous Notes* Telephone Encounter - Dony Menjivar RN - 09/08/2022 4:27 PM EST Pt calling to see if Dr. Booker would be calling her today. I told pt that Dr. Booker would call her after she had labs drawn. Pt is to have labs done at the end of the week. Pt states that she was having symptoms of low calcium at the end of last week but has been doing ok since. She is going to continue to take calcium 3 times a day until she hears from Dr. Booker. Pt will call with any further questions or concerns. Dony Menjivar RN documented in this [facility]01-10-2023 Miscellaneous Notes* Telephone Encounter - Dony Collado - 08/26/2022 1:14 PM EST 08/25/22 Negative Covid Text indexed documented in this [facility]01-06-2023 Miscellaneous Notes* Telephone Encounter - Dony Menjivar RN - 08/22/2022 1:53 PM EST Jesus has arranged for her covid test and will hand carry the results with her to surgery. She will also fax a copy for her record. Dony Menjivar RN documented in this [facility]01-06-2023 Miscellaneous Notes* Telephone Encounter - Dony Menjivar RN - 08/22/2022 9:12 AM EST Phoned and left Jesus a message to please call the office. 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 We have left multiple messages and have spoken with Dr. Couch office but have not gotten a response. Dony Menjivar RN documented in this [facility]01-05-2023 Miscellaneous Notes* Telephone Encounter - Dony Menjivar RN - 08/21/2022 10:42 AM EST Phoned and spoke with Fercho at Dr. Conway's office . She said [...] to please try and expedite this . Dony Menjivar RN documented in this encounterMartins Ferry [facility]12-15-2022 Instructions* Patient Instructions* Fercho Cortes APRN.RESPIRATORY CLINICIAN - 07/31/2022 9:19 AM EST PATIENT PREOPERATIVE INSTRUCTIONS No ref. provider found has scheduled you for your procedure at this surgery center: [facility] Scheduling Office: [phone] --[address] [place] [address]. Please read below carefully for your personalized [...] or other anticoagulants without consulting with your film editor supervisor or prescribing physician. - Stop Vitamin E, [...] Procedures: - YOU MUST HAVE A RESPONSIBLE RN IMAGING TAKE YOU HOME. A PILE DRIVER OPERATOR OR PLANNING DIVISION SUPERINTENDENT CANNOT BE MADE A RESPONSIBLE RN IMAGING. - We recommend that a responsible person stays with you overnight to take care of you. - You cannot stay in a hotel alone after outpatient surgery. You will not be permitted to have yoursurgery, if you do not have someone to take care of you. Arrival Time for Surgery: - To obtain your arrival time for surgery, call your physician's office the day before your surgery. - If your surgery is scheduled for Thursday, call the Thursday before. Your surgeon s medical scheduler will tell you what time to call the office. - If you have not reached the departmental medical scheduler by 5 P.M., call [phone] after 5 P.M. the day before your surgery. Please be aware that emergency situations arise, which may delay or change your surgical time. If this happens, we will notify you as soon as possible and regret any inconvenience. If you already have an Advance Directive, please fax a copy to [phone] or email to for it to be added to your chart. If you do not have an Advance Directive, you can find the appropriate form and more information at [email or web address]. We recommend that youcomplete the Advance Directive form found on the website and bring it with you the day of your surgery. It can be witnessed and scanned into your chart that day. Fercho Cortes APRN.JOHNATHAN documented in this encounterMartins Ferry Hospital12-15-2022 History and physical note * Fercho Cortes APRN.CNP - 07/31/2022 8:48 AM EST HISTORY AND PHYSICAL EXAMINATION SERVICE DATE: 07/31/2022 SERVICE TIME: 8:51 AM PRIMARY CARE PHYSICIAN: Wojciech Treviño MD, DO REASON FOR VISIT: Jesus Wolf is a 67 year old female who is scheduled for PARATHYROIDECTOMY at the request of Dr. Monica Booker for consultation. My final recommendation will be [...] TUNNEL RIGHT WRIST surgical correction COLONOSCOPY 05/10/2019 [facility] COLONOSCOPY GEN ANES 07/23/2020 Dr. Frances/Diverticulosis/Hemorrhoids/ Ulcerative Colitis/Rpt in 2 yrs. EGD EUS 01/11/2020 [facility] LASIK Right prior to [...] Take one(1) tablet daily. Yes MV with Wln-Aqdvccon-Iegrca (CENTRUM SILVER) 0.4 mg-300 mcg- 250 mcg [...] fevers. Neuro: No history of TIA's, stroke, PARQUETRY LAYER tumor, impaired sensorium, hemiplegia, paraplegia or quadraplegia. No neurological symptoms or problems. Respiratory: Positive for MONI non compliant with CPAP , Negative for No history of current cough ordyspnea, or pneumonia in the past 6 weeks. No history of respiratory/pulmonary symptoms or problems Cardiovascular: Positive for: HLD, Hypertension History of A-fib s/p ablation on Eliquis +TAAA 4.6 cm following by cardiology Dr. Conway +CHF on Aldactone no history of angina, SD, cardiac surgery or stents. 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 Impression CONCLUSIONS: - Technically difficult exam due [...] Initiated: Orders Placed This Encounter MV with Ryg-Abcabktd-Hipygd (CENTRUM SILVER) 0.4 mg-300 mcg- 250 mcg tab Sig: Take 1 tablet by mouth once daily., Orders per surgeon Planned Anesthetic: General Instructions Given to Patient: Instructions located in the after visit summary. Patient given verbal and written preop instructions and voices comprehension and compliance. SIGNATURE: Fercho Cortes APRN.CNP PATIENT NAME: Jesus Wolf DATE: July 31, 2022 TIME: 8:51 AM documented in this encounterMartins Ferry Hospital12-07-2022 Miscellaneous Notes* Telephone Encounter - Bang Spears RN - 07/23/2022 5:24 PM EST Last colon 09/12/2021 - pt is due in 2-3 years. Recall in. Bang Spears, RN * Telephone Encounter - Emily Crawford LPN - 07/23/2022 5:03 PM EST Per note patient was to repeat colonoscopy in 2 years. Patient is currently seeing Dr Blanton. Please have her place orders and assist with scheduling if appropriate. Emily Crawford LPN July 23, 2022 5:04 PM documented in this encounterMartins Ferry Hospital11-21-2022 History and physical note * Monica oBoker MD - 07/07/2022 1:30 PM EST [facility]&P ENDOCRINE SURGERY SERVICE DATE: 07/07/2022 SERVICE [...] EF), lupus, hypothyroidism on levothyroxine, ulcerative colitis. Shedenies prior issues with general anesthesia. Her medication [...] would be a good candidate for parathyroidectomy andwould need to have medical clearance prior to her surgery. She is agreeable to the plan. All the risks, benefits, and alternatives were discussed with the patient. The patient was given the opportunity to ask questions. Consent was obtained. Monica Booker MD documented in this encounterMartins Ferry Hospital11-21-2022 History of Present illness Narrative* Paola Hickey - 07/07/2022 11:00 AM EST RADIOLOGY SERVICE PROGRESS NOTE SERVICE DATE: 07/07/2022 [...] creatinine assay has traceable calibration to isotope dilution- mass spectrometry. Refer to KDIGO guidelines for clinical interpretation. In patients with unstable renal function, e.g. those with acute kidney injury, the eGFRmay not accurately reflect actual GFR. eGFR- Date [...] 1040/1416 PATIENT DISCHARGED TO: Ambulatory patient, left MD department area. A Diagnostic radioactive procedure has taken place, with no further precautions necessary other than routine body substance precautions. More information regarding radiation safety can be found usingthis link: [email or web address] SIGNATURE: RT Zaria(R) PATIENT NAME: Jesus Wolf DATE: July 07, 2022 TIME: 10:54 AM PAGER/CONTACT #: documented in this encounterMartins Ferry Hospital11-15-2022 Miscellaneous Notes* Telephone Encounter - Dony Collado - 07/01/2022 9:32 AM EST 07/01/22: INTAKE COMPLETE Patient informed about MIBI. Scheduled on patient's behalf. ENDOCRINE SURGERY PATIENT WORKSHEET Initial Call Date: July 01, 2022 Reason for Consult/ Referral: Hyperparathyroid, Hypercalcemia PATIENT DEMOGRAPHICS Name: Jesus Wolf [facility]#: [id number] : 1955 AGE: [age] year old Contact Numbers: Home: (home) Work: There is no work phone number on file. PATIENT PHYSICIAN INFORMATION Referring Doctor: Lemuel Bejarano Address: Phone: Ophthalmic Pathologist: same Address: Phone: PCP: Wojciech Treviño MD ([facility]) [address] [place] [address] PAST TREATMENT Office notes: SEE EPIC Medications: [...] 300.0 mg/24 hr 108.5 Imaging Reports: SEE [facility] CD of Images: SEE [facility] FNA: no FNA Slides: N/A Has the patient ever had thyroid or parathyroid surgery before: No Operative Reports: NONE AVAILABLE Pathology Reports: NONE AVAILABLE documented in this encounterMartins Ferry Hospital10-27-2022 History of Present illness Narrative* Cha Oscar RN - 06/12/2022 12:53 PM EDT Infusion Charting Note: Pt ID [...] for 2 hours due to previous reaction. Cha Oscar RN documented in this encounterMartins Ferry Hospital10-26-2022 Instructions* Patient Instructions* Lemuel Bejarano V, MD - 06/11/2022 3:06 PM EDT [phone]-- [facility] Monica Cantrell documented in this encounterMartins Ferry Hospital10-26-2022 History of Present illness Narrative* Lemuel Bejarano V, MD - 06/11/2022 2:50 PM EDT Reason for consultation: evaluation of primary hyperparathyroidism Referring Physician: Julia Peña [address] [address] My final recommendations will be communicated back [...] TUNNEL RIGHT WRIST surgical correction COLONOSCOPY 05/10/2019 [facility] COLONOSCOPY GEN ANES 07/23/2020 Dr. Frances/Diverticulosis/Hemorrhoids/ Ulcerative Colitis/Rpt in 2 yrs. EGD EUS 01/11/2020 [facility] LASIK Right prior to [...] last 6 months, no fever, no chills, andno change in weight in the last 6 [...] by chemiluminescent immunoassay. No components found for: JFK540 Calcium Date Value Ref Range Status 05/16/2021 [...] intake of calcium, as low calcium diets canlead to further secretion of PTH. We will [...] which included preparing to see the patient, [id number] patient care, completing clinical documentation, obtaining and/or reviewing separately obtained history, performing a medically appropriate examination, counseling and educating the pat ient/family/caregiver, ordering medications, tests, or procedures, communicating with other HCPs (not separately reported), independently interpreting results (not separately reported), communicatingresults to the patient/family/caregiver, and care coordination (not [...] No Heat Intolerance?: Yes documented in this encounterMartins Ferry Hospital10-03-2022 Miscellaneous Notes* Telephone Encounter - Lisa Ramos - 05/19/2022 12:47 PM EDT Patient is scheduled for bilateral cortisone injections with fluoroscopic guidance with Dr. Howard 07/21/22. She would like sooner if any cancellations, however, is not available 05/23 thru 06/08. No PACC or post-op appts needed for this procedure. documented in this [facility]09-29-2022 Miscellaneous Notes* Telephone Encounter - Sravani Quinteros LPN - 05/15/2022 9:04 AM EDT RX was approved on 05/15/22 and was sent to [facility]. Pt was notified. documented in this [facility]09-29-2022 Miscellaneous Notes* Telephone Encounter - Sravani Quinteros LPN - 05/15/2022 8:51 AM EDT Pt requesting refill son the following medication. Please file if appropriate. documented in this [facility]09-26-2022 Instructions* Patient Instructions* Julia Peña PA-C - 05/12/2022 11:12 AM [...] but you can sit down. Please call [phone] to schedule endocrinology appointment. documented in this [facility]09-26-2022 History of Present illness Narrative* Julia Peña PA-C - 05/12/2022 10:50 AM EDT Images from the original note were not included. Osteoporosis and Metabolic Bone Disease Date of Service: 05/12/2022 Patient: Jesus Wolf Medical Record: [id number] Primary Care Physician: Wojciech Treviño MD, DO [...] use (Comment: Daily steroid uses from about 5714-6192) Previous use No rheumatoid arthritis Secondary osteoporosis [...] DIAGNOSTIC Asymptomatic postmenopausal status . DXA Model: [employer] Advance (S/N: [id number]) SITE SCANNED: Lumbar Spine, Left Hip, & [...] should take calcium, the recommended dose is 8754-7387 mg per day along with 800-1000 IU vitamin D (some patients may require higher doses of vitamin D). LIMITATIONS: - Degenerative changes in the spine may artificially increase bone mass and make the reading unreliable FOLLOW-UP: - 2-years cc. Dr. Hardin Trans Router: findin Transcribe Date/Time: Mar 13 2022 3:34P [...] TUNNEL RIGHT WRIST surgical correction COLONOSCOPY 05/10/2019 [facility] COLONOSCOPY GEN ANES 07/23/2020 Dr. Frances/Diverticulosis/Hemorrhoids/ Ulcerative Colitis/Rpt in 2 yrs. EGD EUS 01/11/2020 [facility] LASIK Right prior to [...] Fosamax from 02/2010-04/2010 & 10/2017-10/2019 and Boniva from04/2010-06/2012. Has been on a drug holiday since [...] use (Comment: Daily steroid uses from about 9985-3033) Previous use No rheumatoid arthritis Secondary osteoporosis [...] routine health maintenance advised. Orders this visit: [facility] on 05/12/22 CONSULT TO ENDOCRINOLOGY alendronate (FOSAMAX) 70 mg tablet Return in about 6 months (around 11/09/2022). Medical Decision Making: Problems: Low: Stable chronic illness Data: Unique test result(s) reviewed: 3+ Risk: Moderate: Drug management Medical Decision Making Level: 4 - Moderate Julia Peña PA-C Date: May 12, 2022 documented in this encounterMartins Ferry Hospital09-20-2022 Miscellaneous Notes* Telephone Encounter - Barbie Gerard LPN - 05/06/2022 4:00 PM EDT [employer] message sent to patient r/t below request. documented in this encounterMartins Ferry Hospital09-20-2022 Miscellaneous Notes* Telephone Encounter - Barbie Gerard LPN - 05/06/2022 3:40 PM EDT Patient phones requesting refills as follows: Last office visit: 04/03/2021 Next office visit: Visit date not found Requested Prescriptions Pending Prescriptions Disp Refills colestipol (COLESTID) 1 gram tablet 120 tablet 3 Sig: Take 2 tablets by mouth twice daily. Please review and advise. Barbie Gerard LPN Please file if appropriate documented in this [facility]09-02-2022 Instructions* Patient Instructions* Julia Peña PA-C - 04/18/2022 4:36 PM [...] container to the lab. documented in this encounterMartins Ferry Hospital09-02-2022 History of Present illness Narrative* Julia Peña PA-C - 04/18/2022 3:56 PM EDT Images from the original note were not included. Osteoporosis and Metabolic Bone Disease Date of Service: 04/18/2022 Patient: Jesus Wolf Medical Record: [id number] Primary Care Physician: Wojciech Treviño MD, DO [...] use (Comment: Daily steroid uses from about 7475-8852) Previous use No rheumatoid arthritis Secondary osteoporosis [...] DATE OF EXAM: Mar 13 2022 3:21PM Milind 0804 - BD DXA - AXIAL SKELETON -NB / PROCEDURE REASON: Asymptomatic postmenopausal status * * * * Physician Interpretation * * * * EXAMINATION: DXA BONE DENSITOMETRY BD DXA - AXIAL SKELETON -NB CLINICAL HISTORY: DIAGNOSTIC Asymptomatic postmenopausal status . DXA Model: A5[employer] Advance (S/N: [id number]) SITE SCANNED: Lumbar Spine, Left Hip, & [...] should take calcium, the recommended dose is 5291-2665 mg per day along with 800-1000 IU vitamin D (some patients may require higher doses of vitamin D). LIMITATIONS: - Degenerative changes in the spine may artificially increase bone mass and make the reading unreliable FOLLOW-UP: - 2-years cc. Dr. Hardin Trans Router: findin Transcribe Date/Time: Mar 13 2022 3:34P [...] TUNNEL RIGHT WRIST surgical correction COLONOSCOPY 05/10/2019 [facility] COLONOSCOPY GEN ANES 07/23/2020 Dr. Frances/Diverticulosis/Hemorrhoids/ Ulcerative Colitis/Rpt in 2 yrs. EGD EUS 01/11/2020 [facility] LASIK Right prior to [...] Fosamax from 02/2010-04/2010 & 10/2017-10/2019 and Boniva from04/2010-06/2012. Has been on a drug holiday since 10/2019. Calcium intake is likely adequate with diet alone. Serum Calcium has been consistently elevated for a year. Poor balance on exam. Osteoporosis FRAX Risk Factors No Fractures No family history of osteoporosis No parent with a hip fracture Not a current smoker Glucocorticoid use (Comment: Daily steroid uses from about 8950-1225) Previous use No rheumatoid arthritis Secondary osteoporosis [...] Medical Decision Making Level: 4 - Moderate Julia Peña PA-C Date: April 18, 2022 documented in this encounterMartins Ferry Hospital07-28-2022 History of Present illness Narrative* SANAM Barnard) - 03/13/2022 2:50 PM EDT Patient has been identified by name and date of . Scanner [employer] [id number] Sites Scanned: Lumbar spine, Left hip, left forearm RT Evon(Sandra) Radiology Service Progress Note PATIENT NAME: Jesus Wolf DATE OF SERVICE: March 13, 2022 TIME: 2:59 PM PATIENT IDENTITY VERIFICATION COMPLETED USING TWO (2) IDENTIFIERS: Name and Date of confirmedby patient verbally. FALL SCREENING: Has the patient [...] 13, 2022 2:59 PM documented in this encounterMartins Ferry Hospital07-28-2022 History of Present illness Narrative* Liliane García RN - 03/13/2022 2:30 PM EDT Patient arrives ambulatory for receipt of COVID-19 Monoclonal Antibodies for pre-exposure prophylaxis. Patient is identified by name and date of Previous [facility] Administrations (last [id number] hours) Showing orders from other encounters Date/Time Action Medication Dose 03/13/22 1258 Given cilgavimab 300 mg intramuscular injection (EVUSHELD) 300 mg 03/13/22 1258 Given tixagevimab 300 mg intramuscular injection (EVUSHELD) 300 mg Patient is receiving Evusheld (tixagevimab 300 mg/cilgevimab 300 mg) IM COVID 19 Result CASING MATERIAL WEIGHER (no units) Date Value 03/13/2022 Negative Confirmed [...] injection, while receiving her infusion. No immediate complications.Patent will continue to be monitored by the infusion nurse. See doc flowsheet for vital signs. Vitals are stable. documented in this encounterMartins Ferry Hospital07-28-2022 History of Present illness Narrative* Keira Frias RN - 03/13/2022 11:43 AM EDT Infusion Charting Note: Pt ID by [...] next. Keira Frias RN documented in this encounterMartins Ferry Hospital07-28-2022 Instructions* Patient Instructions* Evelin Alicea MD - 03/13/2022 11:25 AM EDT BONE MINERAL DENSITY PATIENT INSTRUCTIONS Bone mineral density testing measures the amount of calcium in certain parts of your bones. This information determines how strong your bones are. The test is used to detect osteoporosis, a disease in which the bone's mineral content and density are low, increasing a person's risk of fractures. Thelumbar spine (lower back) and the hip are [...] your usual activities immediately. documented in this encounterMartins Ferry Hospital07-28-2022 History of Present illness Narrative* Evelin Alicea MD - 03/13/2022 11:05 AM EDT CLINICAL SHEET Jesus Wolf is a 67 year old female here for follow up for diagnosis of SLE and membraneous nephropathy. Failed cyclosporine. Started MMF 06/26, Benlysta 09/28 every month then starting in February 2012 started every two months Jun 2012. Aug 2013 Benlysta moved to every 3 months. Also on Plaqueniland cellcept 1g BID. August 2018 cellcept was [...] CellCept since 2010 and with taper since 2019 without any [...] (CRP) Evelin Hardin MD documented in this encounterMartins Ferry Hospital07-27-2022 Miscellaneous Notes* Telephone Encounter - Liliane García RN - 03/12/2022 12:34 PM EDT Patient sent a Yuanfen~Flow™t message she will not be taking the Evusheld injection this appointment. Liliane García RN documented in this encounterMartins Ferry Hospital07-21-2022 Instructions* Patient Instructions* Court Vazquez RN - 03/06/2022 9:33 AM [...] issued an Emergency Use Authorization (EUA) to makeEVUSHELD available during the COVID-19 pandemic (for more [...] You can get COVID-19 through close contact withanother person who has the virus. COVID-19 illnesses have ranged from very mild (including some with no reported symptoms) to severe,including illness resulting in . While information so far suggests that most COVID-19 illness is mild, serious illness can happen and may cause some of your other medical conditions to become worse. Older people and people of all ages with severe, long-lasting (chronic) medical conditions likeheart disease, lung disease, and diabetes, for example, [...] not had recent known close contact with someonewho is infected with SARS-CoV-2 and o Who have moderate to severe immune compromise due to a medical condition or have received immunosuppressive medicines or treatments and may not mount an adequate immune response to COVID-19 vaccination or o For whom vaccination with any available COVID-19 vaccine, according to the approved or authorizedschedule, is not recommended due to a history of severe adverse reaction (such as severe allergic reaction) to a COVID-19 vaccine(s) or COVID-19 vaccine ingredient(s). EVUSHELD is investigational because it is still being studied. There is limited information known about the safety and effectiveness of using EVUSHELD for pre- exposure prophylaxis for prevention of COVID-19. EVUSHELD is not authorized for post-exposure prophylaxis for prevention of COVID-19. The FDA has authorized the emergency use of EVUSHELD for pre-exposure prophylaxis for prevention ofCOVID-19 under an Emergency Use Authorization (EUA). What should I tell my healthcare provider before I receive EVUSHELD? Tell your healthcare provider if you: Have any allergies Have low numbers of blood platelets (which help blood clotting), a bleeding disorder, or are takinganticoagulants (to prevent blood clots) Have had a heart attack or stroke, have other heart problems, or are at high- risk of cardiac (heart) events Are or plan to become Are a child Have any serious illness Are taking any medications (prescription, iwjs-fwa-ajgigtx, vitamins, or herbal products) How will I [...] of EVUSHELD for ongoing protection. Viruses can plant changer time (mutate) and develop into a slightly [...] during and after injection of EVUSHELD. Tell yourhealthcare provider right away if you get any of the following signs and symptoms of allergic reactions: fever, chills, nausea, headache, shortness of breath, low or high blood pressure, rapid or slow heart rate, chest discomfort or pain, weakness, confusion, feeling tired, wheezing, swelling of your lips, face, or throat, rash including hives, itching, muscle aches, dizziness and sweating. Thesereactions may be severe or life threatening. Cardiac [...] your body s immune response to a COVID- 19 vaccine. If you have received a COVID-19 [...] treatment or prevention of COVID-19 go to https://www.fda.gov/tnfsetixu-yslkevfhqpmm-kcq-response/bpx-yoxhn-ylmksjwqar-and -policy-framework/bqzsyjsrx-sga-ujtmojqxulnwe. It is your choice to receive or not receive EVUSHELD. Should you decide not to receive EVUSHELD, itwill not change your standard medical care. EVUSHELD [...] not go away. Report side effects to MedWhatWatch at www.fda.gov/medwatch or call 7-222-LNPCC video3283 or call [employer] . Additional Information If you have questions, visit the website or call the telephone number provided below. To access the most recent EVUSHELD Fact Sheets, please scan the QR code provided below. Website Telephone number http://CodeEval How can I learn more about COVID-19? Ask your healthcare provider. Visit https://www.cdc.gov/COVID19 Contact your local or state public health department. What is an Emergency Use Authorization? The [place] FDA has made EVUSHELD (tixagevimab co-packaged with cilgavimab) available under an emergency access mechanism called an Emergency Use Authorization EUA. The EUA is supported by a Street Light Wirer of Health and Human Service (HHS) declaration [...] be used under the EUA). Distributed by: [employer], [place], [place] Manufactured by: [employer], [address] [facility] [address], [place] [facility] [employer] 2020. All rights reserved. documented in this encounterMartins Ferry Hospital07-21-2022 Miscellaneous Notes* Telephone Encounter - Court Vazquez RN - 03/06/2022 9:32 AM EDT Evusheld (tixagevimab/cilgavimab) Eligibility and Patient Discussion [facility] Formulary Restriction Criteria: Outpatient adults and pediatrics 12 years and older and > 40 kg with ALL of the following: [x] COVID test scheduled: Yes Date: 03/07/22, type of test:Home antigen [x] Patient has not been exposed to a SARS-COV-2 positive individual ([facility] information on COVID exposure link) [x] Patient [...] or severe primary immunodeficiency (e.g. DiGeorge syndrome, Wiskott- Aldrick syndrome) [] Advanced or untreated HIV infection [...] COVID-19 vaccine, according to the approved or authorizedschedule, is not recommended due to a history [...] use of the investigational therapeutic, Evusheld (tixagevimab/cilgevimab), forpre-exposure prophylaxis of COVID-19 infection and its use [...] electronically with the Fact Sheet for Patients, Parentsand Caregivers . The patient stated understanding and gave verbal consent to proceeding with tixagevimab/cilgevimab treatment. Court Vazquez RN March 06, 2022 9:33 AM documented in this encounterMartins Ferry Hospital07-11-2022 Miscellaneous Notes* Telephone Encounter - Dione Frances MD - 02/24/2022 8:30 PM EDT Spoke with patient regarding positive C. difficile toxin by PCR. Have ordered vancomycin p.o. 4 times daily x 10 days to her local pharmacy. Patient verbalized understanding all questions answered. Dione Frances MD, MPH Gastroenterology and Hepatology documented in this encounterMartins Ferry Hospital07-11-2022 Miscellaneous Notes* Telephone Encounter - Court Vazquez RN - 02/24/2022 1:13 PM EDT Most recent Rheumatology visit: 12/09/2021 (with Cuca Guthrie) Upcoming Rheumatology Appointments - Next 365 Days Visit Type Date Time Department [facility] 03/13/2022 11:30 AM [facility] A50 Last Ophthalmology Check for Plaquenil [...] [SQCBC] 09/13/22 09/13/21 Auth. provider: Keyanna Carter APRN.RESPIRATORY CLINICIAN Assoc. diagnoses: Chronic diastolic congestive heart failure (HCC), Paroxysmal atrial fibrillation (HCC), Essential hypertension Pending Prescriptions Disp Refills HYDROXYCHLOROQUINE 200 MG TABLET 180 tablet 2 Sig: take 1 tablet by mouth twice a day with food NIKITA: No Court Vazquez RN documented in this encounterMartins Ferry Hospital07-08-2022 Miscellaneous Notes* Telephone Encounter - Dione Frances MD - 02/21/2022 3:36 PM EDT Spoke with patient regarding recent ER visits. [...] denies any rectal bleeding. She states overall sheis starting to feel better and her stools are not as liquid, the abdominal pain has resolved and she is tolerating a bland diet. Suspect antibiotic induced diarrhea versus an infectious source, will c heck stool studies for infection and C. difficile. Patient verbalized understanding all questions answered. Dione Frances MD, MPH Gastroenterology and Hepatology documented in this encounterMartins Ferry Hospital07-07-2022 Miscellaneous Notes* Telephone Encounter - Sravani Quinteros LPN - 02/20/2022 4:57 PM EDT Pt called back. Please see 02/14/22 phone encounter. documented in this encounterMartins Ferry Hospital07-05-2022 Miscellaneous Notes* Telephone Encounter - Sravani Quinteros LPN - 2022 7:32 AM EDT Please see other phone encounter that was sent by Pt. documented in this encounterMartins Ferry Hospital06-26-2022 Discharge summary Author Hussain Cat [facility] February 09, 2022 11:55am Note Date/Time February 09, 2022 11:5 5am [facility] [address] [place] [address] Discharge Summary Signed Patient: Jesus Wolf MR#: [id number] : 1955 Acct:[id number] Age/Sex: 66 / F Adm Date: 2 Loc: Room: [address] [place] [address]: Hussain Cat MD Copies to: [...] Plan Discharge Plan Patient Disposition: [place] Health [facility] Activity: No Activity Restriction Additional Instructions: Home [...] <Electronically signed by Hussain Cat MD> 02/09/22 115[address] [facility] Work Phone: 1(635) 839-453606-25-2022 Progress note Author Hussain Cat [facility] February 08, 2022 6:09pm Note Date/Time February 08, 2022 5:53 pm [facility] [address] [place] [address] Hospitalist Progress Note Signed Patient: Jesus Wlof MR#: [id number] : 1955 Acct:[id number] Age/Sex: 66 / F Adm Date: 2 Loc: Room: [address] [place] [address] Type : ADM INOo Attending Dr: Hussain [...] F L 74 16 99/63 L 99 06/25/22 12:00 02/08/22 12:00 02/08/22 12:00 02/08/22 12:00 [...] code Documented By: Hussain Cat MD 2 [id number] Signed By: <Electronically signed by Hussain Cat MD> 02/08/22 2[address] [facility] Work Phone: 1(704) 294-912306-25-2022 Consult note Author Rachelle Frazier [facility] February 08, 2022 1:25pm Note Date/Time February 08, 2022 11:5 6am [facility] [address] [place] [address] Neurology Consult Note Signed Patient: Jesus Wolf MR#: [id number] : 1955 Acct:[id number] Age/Sex: 66 / F Adm Date: 2 Loc: 3T Room: [address] [place] [address] Type : ADM INOo Attending Dr: Hussain Cat MD Copies to: DO Hussain Helms MD Nicole J Danner, DO~ HPI Consult Date: 02/08/22 Supervisor Marble: Rachelle Frazier DO Reason for consult: AMS [...] mg PO BID 04/03/19 [History Confirmed 02/07/22] ctqoitpy-ban-ologg acid 0.4 mg-lycopene 300 mcg-lutein 250 mcg [...] of dysmetria with good rapid alternating movements yvfsvt-xm-agkf Tone is physiologic Sensation was intact to [...] Sanches Jr., M.D.02/07/2022 2:56 PM Dictation Location: [facility]-13 Chest CTA 02/07/22 14:20 IMPRESSION: 1. Atherosclerotic [...] Acute Documented By: Rachelle Frazier DO 02/08/22 4422 Signed By: <Electronically signed by DO Rachelle Frazier> 02/08/22 3[address] [facility] Work Phone: [phone]) 724-795606-25-2022 History and physical note Author Hussain Cat [facility] February 07, 2022 11:02pm Note Date/Time February 07, 2022 10:2 9pm [facility] [address] [place] [address] Hospitalist H&P Signed Patient: Jesus Wolf MR#: [id number] : 1955 Acct:[id number] Age/Sex: 66 / F Adm Date: 2 Loc: Room: [address] [place] [address] Type : ADM IN Attending Dr: Hussain Cat MD Copies to: Wojciech Treviño,DO Hussain Cat MD~ HPI DATE OF EXAMINATION: 02/07/22 CHIEF COMPLAINT: Altered mental status HISTORY OF PRESENT ILLNESS: Ms. Wolf is a 66-year-old female with PMH of multiple medical comorbidities including SLE, diastolic CHF, MONI, HTN, HLD, paroxysmal A. fib, ulcerative colitis, morbid obesity, ascending thoracic aortic aneurysm, [facility]. Patient was [...] Medical History (Updated 02/07/22 @ 17:25 by Pardeep Barraza MD) Atrial fibrillation CHF (congestive heart [...] mg PO BID 04/03/19 [History Confirmed 02/07/22] fkbwfosc-dzj-wtzam acid 0.4 mg-lycopene 300 mcg-lutein 250 mcg [...] % (Auto) 18.9 % (.) 02/07/22 14:23 [place] % (Auto) 12.2 % (.) 02/07/22 14:23 Eos % (Auto) 1.8 % (.) 02/07/22 14:23 Baso % (Auto) 0.5 % (.) 02/07/22 14:23 Neut # (Auto) 7.5 x10E3/uL (1.8-7.7) 02/07/22 14:23 Lymph # (Auto) 2.1 x10E3/uL (1.00-4.8) 02/07/22 14:23 [place] # (Auto) 1.4 x10E3/uL (0.0-0.8) H 02/07/22 [...] 02/07/22 16:29 Urine Appearance Clear (Clear) 02/07/22 16: Urine pH 5.0 (5.0-9.0) 02/07/22 16:[address] 1.049 (1.001-1.030) H 02/07/22 16:29 Urine Protein Negative mg/dL (Negative) 02/07/22 16: Urine Glucose (UA) Normal mg/dL (Normal) 02/07/22 16: Urine Ketones Negative (Negative) 02/07/22 16:29 Urine Occult Blood Negative (Negative) 02/07/22 16:29 Urine Nitrite Positive (Negative) H 02/07/22 16: Urine Bilirubin Negative (Negative) 02/07/22 16:29 Urine Urobilinogen Normal mg/dL (Normal) 02/07/22 16:29 Ur Leukocyte Esterase 2+ (Negative) H 02/07/22 16:29 Urine RBC 0-1 /HPF (0-4) 02/07/22 16: Urine WBC 3-4 /HPF (0-4) 02/07/22 16:29 [...] code. Documented By: Hussain Cat MD 2 1 Signed By: <Electronically signed by Hussain Cat MD> 02/07/22 [address] [facility] Work Phone: [phone]) 232-734306-22-2022 Miscellaneous Notes* Telephone Encounter - Bang Spears RN - 02/05/2022 1:27 PM EDT Pt's daughter, Lesia, has been notified multiple times by the team recently and up to date on POC. Please review her chart. Bang Spears RN documented in this encounterMartins Ferry Hospital06-14-2022 Miscellaneous Notes* Telephone Encounter - Irene Sahu PA-C - 01/28/2022 10:27 AM EDT Prescription refill approved on January 28, 2022 and routed to pharmacy to be filled Irene Sahu PA-C documented in this encounterMartins Ferry Hospital06-09-2022 Miscellaneous Notes* Telephone Encounter - Jesus Moon MA - 01/23/2022 11:19 AM EDT Patient phones requesting refills as follows: Pending Prescriptions Disp Refills PANTOPRAZOLE 40 MG TABLET,DELAYED RELEASE 60 tablet 3 Sig: Take 1 tablet by mouth twice daily. NIKITA: No Please review and advise. Jesus Moon MA documented in this encounterMartins Ferry Hospital05-16-2022 Miscellaneous Notes* Telephone Encounter - Sravani Quinteros LPN - 12/30/2021 11:05 AM EDT Pt requesting refills on the following medication. Please file if appropriate. documented in this encounterMartins Ferry Hospital04-25-2022 History of Present illness Narrative* JOSEPH Garcia - 12/09/2021 2:30 PM EDT Images from the original note were not included. Rheumatology Outpatient Clinic New Patient To Dc Date of Service: 12/09/2021 Patient: Jesus Wolf Medical Record: [id number] Primary Care Physician: Wojciech Treviño MD Last [...] in September with Dr. Denis Bill at [facility]. Ulcerative colitis doing well but she did have stomach ulcers in October. She also discovered that she had an aortic aneurysm that is 4.7 Current Medications. 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 She does not follow with nephrology. [...] TUNNEL RIGHT WRIST surgical correction COLONOSCOPY 05/10/2019 [facility] COLONOSCOPY GEN ANES 07/23/2020 Dr. Frances/Diverticulosis/Hemorrhoids/ Ulcerative Colitis/Rpt in 2 yrs. EGD EUS 01/11/2020 [facility] LASIK Right prior to 1999 MRI PANC/JEANIE WO/W IVCON 12/20/2019 [facility] PAST SURGICAL HISTORY OF 07/2013 bilateral foot procedure, [place] PAST SURGICAL HISTORY OF Ablation X2 TONSILLECTOMY [...] ANTIBODY W/CONFIRMATION <30 IU/mL - <12 <12 PIT SHOVELER ANTIBODY <1.0 AI - - - SSA ANTIBODY <1.0 AI - - - SSB ANTIBODY <1.0 AI - - - NALINI 1 ANTIBODY <1.0 AI - - - RIBOSOMAL PIT SHOVELER <1.0 AI - - - SM ANTIBODY [...] which included preparing to see the patient, qluc-jo-twnn patient care, completing clinical documentation, obtaining and/or reviewing separately obtained history, performing a medically appropriate examination, counseling and educating the pat ient/family/caregiver and ordering medications, tests, or procedures. Medical Decision Making: Problems: Low: Stable chronic illness Risk: Moderate: Moderate risk from testing/treatment Medical Decision Making Level: 3 - Low documented in this encounterMartins Ferry Hospital04-25-2022 History of Present illness Narrative* Ramesh Hathaway [...] HOURS FOR THIS PT. documented in this encounterMartins Ferry Hospital04-04-2022 Miscellaneous Notes* Telephone Encounter - Jesus Moon MA - 11/18/2021 10:03 AM EDT , Medication pended. Please file if appropriate. Thanks documented in this encounterMartins Ferry Hospital01-27-2022 History and physical note * Dione Frances MD - 09/12/2021 7:30 AM EST UPDATED [...] be found in the attached. SIGNATURE: Dione Frances MD PATIENT NAME: Jesus Wolf DATE: September 12, 2021 TIME: 7:39 AM PAGER: documented in this encounterMartins Ferry Hospital05-04-2021 History of Past illness Narrative* Problem Noted Date Resolved Date Primary osteoarthritis of right hip 12/18/2020 12/19/2020 Osteoarthritis of both feet 04/14/201803/17 Overview: Added automatically from request for surgery [id number] Osteoarthritis of ankle or foot 10/14/2017 04/02/2020 Overview: Added automatically from request for surgery [id number] Synovitis 10/14/2017 04/02/2020 Overview: Added automatically from request for surgery [id number] Osteoarthrosis, localized, secondary, ankle or f oot 08/07/2015 04/02/2020 documented as of this encounter (statuses as of 11/18/2021) [facility]05-[facility] History of Past illness Narrative* Problem Noted Date Resolved Date Primary osteoarthritis of right hip 12/18/2020 12/19/2020 Osteoarthritis of both feet 04/14/201803/17 Overview: Added automatically from request for surgery [id number] Osteoarthritis of ankle or foot 10/14/2017 04/02/2020 Overview: Added automatically from request for surgery [id number] Synovitis 10/14/2017 04/02/2020 Overview: Added automatically from request for surgery [id number] Osteoarthrosis, localized, secondary, ankle or f oot 08/07/2015 04/02/2020 documented as of this encounter (statuses as of 12/09/2021) [facility] of Past illness Narrative* Problem Noted Date Resolved Date Primary osteoarthritis of right hip 12/18/2020 12/19/2020 Osteoarthritis of both feet 04/14/201803/17 Overview: Added automatically from request for surgery [id number] Osteoarthritis of ankle or foot 10/14/2017 04/02/2020 Overview: Added automatically from request for surgery [id number] Synovitis 10/14/2017 04/02/2020 Overview: Added automatically from request for surgery [id number] Osteoarthrosis, localized, secondary, ankle or f oot 08/07/2015 04/02/2020 documented as of this encounter (statuses as of 12/09/2021) [facility] of Past illness Narrative* Problem Noted Date Resolved Date Primary osteoarthritis of right hip 12/18/2020 12/19/2020 Osteoarthritis of both feet 04/14/201803/17 Overview: Added automatically from request for surgery [id number] Osteoarthritis of ankle or foot 10/14/2017 04/02/2020 Overview: Added automatically from request for surgery [id number] Synovitis 10/14/2017 04/02/2020 Overview: Added automatically from request for surgery [id number] Osteoarthrosis, localized, secondary, ankle or f oot 08/07/2015 04/02/2020 documented as of this encounter (statuses as of 12/30/2021) [facility] of Past illness Narrative* Problem Noted Date Resolved Date Primary osteoarthritis of right hip 12/18/2020 12/19/2020 Osteoarthritis of both feet 04/14/201803/17 Overview: Added automatically from request for surgery [id number] Osteoarthritis of ankle or foot 10/14/2017 04/02/2020 Overview: Added automatically from request for surgery [id number] Synovitis 10/14/2017 04/02/2020 Overview: Added automatically from request for surgery [id number] Osteoarthrosis, localized, secondary, ankle or f oot 08/07/2015 04/02/2020 documented as of this encounter (statuses as of 01/23/2022) [facility] of Past illness Narrative* Problem Noted Date Resolved Date Primary osteoarthritis of right hip 12/18/2020 12/19/2020 Osteoarthritis of both feet 04/14/201803/17 Overview: Added automatically from request for surgery [id number] Osteoarthritis of ankle or foot 10/14/2017 04/02/2020 Overview: Added automatically from request for surgery [id number] Synovitis 10/14/2017 04/02/2020 Overview: Added automatically from request for surgery [id number] Osteoarthrosis, localized, secondary, ankle or f oot 08/07/2015 04/02/2020 documented as of this encounter (statuses as of 01/28/2022) [facility] of Past illness Narrative* Problem Noted Date Resolved Date Primary osteoarthritis of right hip 12/18/2020 12/19/2020 Osteoarthritis of both feet 04/14/201803/17 Overview: Added automatically from request for surgery [id number] Osteoarthritis of ankle or foot 10/14/2017 04/02/2020 Overview: Added automatically from request for surgery [id number] Synovitis 10/14/2017 04/02/2020 Overview: Added automatically from request for surgery [id number] Osteoarthrosis, localized, secondary, ankle or f oot 08/07/2015 04/02/2020 documented as of this encounter (statuses as of 02/05/2022) [facility] of [facility] illness Narrative* Problem Noted Date Resolved Date Primary osteoarthritis of right hip 12/18/2020 12/19/2020 Osteoarthritis of both feet 04/14/201803/17 Overview: Added automatically from request for surgery [id number] Osteoarthritis of ankle or foot 10/14/2017 04/02/2020 Overview: Added automatically from request for surgery [id number] Synovitis 10/14/2017 04/02/2020 Overview: Added automatically from request for surgery [id number] Osteoarthrosis, localized, secondary, ankle or f oot 08/07/2015 04/02/2020 documented as of this encounter (statuses as of 2022) [facility] of [facility] illness Narrative* Problem Noted Date Resolved Date Primary osteoarthritis of right hip 12/18/2020 12/19/2020 Osteoarthritis of both feet 04/14/201803/17 Overview: Added automatically from request for surgery [id number] Osteoarthritis of ankle or foot 10/14/2017 04/02/2020 Overview: Added automatically from request for surgery [id number] Synovitis 10/14/2017 04/02/2020 Overview: Added automatically from request for surgery [id number] Osteoarthrosis, localized, secondary, ankle or f oot 08/07/2015 04/02/2020 documented as of this encounter (statuses as of 02/19/2022) [facility] of [facility] illness Narrative* Problem Noted Date Resolved Date Primary osteoarthritis of right hip 12/18/2020 12/19/2020 Osteoarthritis of both feet 04/14/201803/17 Overview: Added automatically from request for surgery [id number] Osteoarthritis of ankle or foot 10/14/2017 04/02/2020 Overview: Added automatically from request for surgery [id number] Synovitis 10/14/2017 04/02/2020 Overview: Added automatically from request for surgery [id number] Osteoarthrosis, localized, secondary, ankle or f oot 08/07/2015 04/02/2020 documented as of this encounter (statuses as of 02/20/2022) [facility] of Past illness Narrative* Problem Noted Date Resolved Date Primary osteoarthritis of right hip 12/18/2020 12/19/2020 Osteoarthritis of both feet 04/14/201803/17 Overview: Added automatically from request for surgery [id number] Osteoarthritis of ankle or foot 10/14/2017 04/02/2020 Overview: Added automatically from request for surgery [id number] Synovitis 10/14/2017 04/02/2020 Overview: Added automatically from request for surgery [id number] Osteoarthrosis, localized, secondary, ankle or f oot 08/07/2015 04/02/2020 documented as of this encounter (statuses as of 02/21/2022) [facility] of Past illness Narrative* Problem Noted Date Resolved Date Primary osteoarthritis of right hip 12/18/2020 12/19/2020 Osteoarthritis of both feet 04/14/201803/17 Overview: Added automatically from request for surgery [id number] Osteoarthritis of ankle or foot 10/14/2017 04/02/2020 Overview: Added automatically from request for surgery [id number] Synovitis 10/14/2017 04/02/2020 Overview: Added automatically from request for surgery [id number] Osteoarthrosis, localized, secondary, ankle or f oot 08/07/2015 04/02/2020 documented as of this encounter (statuses as of 02/24/2022) [facility] of [facility] illness Narrative* Problem Noted Date Resolved Date Primary osteoarthritis of right hip 12/18/2020 12/19/2020 Osteoarthritis of both feet 04/14/201803/17 Overview: Added automatically from request for surgery [id number] Osteoarthritis of ankle or foot 10/14/2017 04/02/2020 Overview: Added automatically from request for surgery [id number] Synovitis 10/14/2017 04/02/2020 Overview: Added automatically from request for surgery [id number] Osteoarthrosis, localized, secondary, ankle or f oot 08/07/2015 04/02/2020 documented as of this encounter (statuses as of 02/25/2022) [facility] of [facility] illness Narrative* Problem Noted Date Resolved Date Primary osteoarthritis of right hip 12/18/2020 12/19/2020 Osteoarthritis of both feet 04/14/201803/17 Overview: Added automatically from request for surgery [id number] Osteoarthritis of ankle or foot 10/14/2017 04/02/2020 Overview: Added automatically from request for surgery [id number] Synovitis 10/14/2017 04/02/2020 Overview: Added automatically from request for surgery [id number] Osteoarthrosis, localized, secondary, ankle or f oot 08/07/2015 04/02/2020 documented as of this encounter (statuses as of 03/06/2022) [facility] Narrative* Problem Noted Date Resolved Date Primary osteoarthritis of right hip 12/18/2020 12/19/2020 Osteoarthritis of both feet 04/14/201803/17 Overview: Added automatically from request for surgery [id number] Osteoarthritis of ankle or foot 10/14/2017 04/02/2020 Overview: Added automatically from request for surgery [id number] Synovitis 10/14/2017 04/02/2020 Overview: Added automatically from request for surgery [id number] Osteoarthrosis, localized, secondary, ankle or f oot 08/07/2015 04/02/2020 documented as of this encounter (statuses as of 03/12/2022) [facility] Narrative* Problem Noted Date Resolved Date Primary osteoarthritis of right hip 12/18/2020 12/19/2020 Osteoarthritis of both feet 04/14/201803/17 Overview: Added automatically from request for surgery [id number] Osteoarthritis of ankle or foot 10/14/2017 04/02/2020 Overview: Added automatically from request for surgery [id number] Synovitis 10/14/2017 04/02/2020 Overview: Added automatically from request for surgery [id number] Osteoarthrosis, localized, secondary, ankle or f oot 08/07/2015 04/02/2020 documented as of this encounter (statuses as of 03/13/2022) [facility] illness Narrative* Problem Noted Date Resolved Date Primary osteoarthritis of right hip 12/18/2020 12/19/2020 Osteoarthritis of both feet 04/14/201803/17 Overview: Added automatically from request for surgery [id number] Osteoarthritis of ankle or foot 10/14/2017 04/02/2020 Overview: Added automatically from request for surgery [id number] Synovitis 10/14/2017 04/02/2020 Overview: Added automatically from request for surgery [id number] Osteoarthrosis, localized, secondary, ankle or f oot 08/07/2015 04/02/2020 documented as of this encounter (statuses as of 03/13/2022) [facility] illness Narrative* Problem Noted Date Resolved Date Primary osteoarthritis of right hip 12/18/2020 12/19/2020 Osteoarthritis of both feet 04/14/201803/17 Overview: Added automatically from request for surgery [id number] Osteoarthritis of ankle or foot 10/14/2017 04/02/2020 Overview: Added automatically from request for surgery [id number] Synovitis 10/14/2017 04/02/2020 Overview: Added automatically from request for surgery [id number] Osteoarthrosis, localized, secondary, ankle or f oot 08/07/2015 04/02/2020 documented as of this encounter (statuses as of 03/13/2022) [facility]05-04[facility]2021 History of Past illness Narrative* Problem Noted Date Resolved Date Primary osteoarthritis of right hip 12/18/2020 12/19/2020 Osteoarthritis of both feet 04/14/201803/17 Overview: Added automatically from request for surgery [id number] Osteoarthritis of ankle or foot 10/14/2017 04/02/2020 Overview: Added automatically from request for surgery [id number] Synovitis 10/14/2017 04/02/2020 Overview: Added automatically from request for surgery [id number] Osteoarthrosis, localized, secondary, ankle or f oot 08/07/2015 04/02/2020 documented as of this encounter (statuses as of 03/16/2022) [facility]2021 History of Past illness Narrative* Problem Noted Date Resolved Date Primary osteoarthritis of right hip 12/18/2020 12/19/2020 Osteoarthritis of both feet 04/14/201803/17 Overview: Added automatically from request for surgery [id number] Osteoarthritis of ankle or foot 10/14/2017 04/02/2020 Overview: Added automatically from request for surgery [id number] Synovitis 10/14/2017 04/02/2020 Overview: Added automatically from request for surgery [id number] Osteoarthrosis, localized, secondary, ankle or f oot 08/07/2015 04/02/2020 documented as of this encounter (statuses as of 03/20/2022) [facility] History of Past illness Narrative* Problem Noted Date Resolved Date Primary osteoarthritis of right hip 12/18/2020 12/19/2020 Osteoarthritis of both feet 04/14/201803/17 Overview: Added automatically from request for surgery [id number] Osteoarthritis of ankle or foot 10/14/2017 04/02/2020 Overview: Added automatically from request for surgery [id number] Synovitis 10/14/2017 04/02/2020 Overview: Added automatically from request for surgery [id number] Osteoarthrosis, localized, secondary, ankle or f oot 08/07/2015 04/02/2020 documented as of this encounter (statuses as of 03/20/2022) [facility] History of Past illness Narrative* Problem Noted Date Resolved Date Primary osteoarthritis of right hip 12/18/2020 12/19/2020 Osteoarthritis of both feet 04/14/201803/17 Overview: Added automatically from request for surgery [id number] Osteoarthritis of ankle or foot 10/14/2017 04/02/2020 Overview: Added automatically from request for surgery [id number] Synovitis 10/14/2017 04/02/2020 Overview: Added automatically from request for surgery [id number] Osteoarthrosis, localized, secondary, ankle or f oot 08/07/2015 04/02/2020 documented as of this encounter (statuses as of 03/27/2022) [facility] History of Past illness Narrative* Problem Noted Date Resolved Date Primary osteoarthritis of right hip 12/18/2020 12/19/2020 Osteoarthritis of both feet 04/14/201803/17 Overview: Added automatically from request for surgery [id number] Osteoarthritis of ankle or foot 10/14/2017 04/02/2020 Overview: Added automatically from request for surgery [id number] Synovitis 10/14/2017 04/02/2020 Overview: Added automatically from request for surgery [id number] Osteoarthrosis, localized, secondary, ankle or f oot 08/07/2015 04/02/2020 documented as of this encounter (statuses as of 04/23/2022) [facility] History of Past illness Narrative* Problem Noted Date Resolved Date Primary osteoarthritis of right hip 12/18/2020 12/19/2020 Osteoarthritis of both feet 04/14/201803/17 Overview: Added automatically from request for surgery [id number] Osteoarthritis of ankle or foot 10/14/2017 04/02/2020 Overview: Added automatically from request for surgery [id number] Synovitis 10/14/2017 04/02/2020 Overview: Added automatically from request for surgery [id number] Osteoarthrosis, localized, secondary, ankle or f oot 08/07/2015 04/02/2020 documented as of this encounter (statuses as of 05/06/2022) [facility] History of Past illness Narrative* Problem Noted Date Resolved Date Primary osteoarthritis of right hip 12/18/2020 12/19/2020 Osteoarthritis of both feet 04/14/201803/17 Overview: Added automatically from request for surgery [id number] Osteoarthritis of ankle or foot 10/14/2017 04/02/2020 Overview: Added automatically from request for surgery [id number] Synovitis 10/14/2017 04/02/2020 Overview: Added automatically from request for surgery [id number] Osteoarthrosis, localized, secondary, ankle or f oot 08/07/2015 04/02/2020 documented as of this encounter (statuses as of 05/07/2022) [facility] History of Past illness Narrative* Problem Noted Date Resolved Date Primary osteoarthritis of right hip 12/18/2020 12/19/2020 Osteoarthritis of both feet 04/14/201803/17 Overview: Added automatically from request for surgery [id number] Osteoarthritis of ankle or foot 10/14/2017 04/02/2020 Overview: Added automatically from request for surgery [id number] Synovitis 10/14/2017 04/02/2020 Overview: Added automatically from request for surgery [id number] Osteoarthrosis, localized, secondary, ankle or f oot 08/07/2015 04/02/2020 documented as of this encounter (statuses as of 05/12/2022) [facility] History of Past illness Narrative* Problem Noted Date Resolved Date Primary osteoarthritis of right hip 12/18/2020 12/19/2020 Osteoarthritis of both feet 04/14/201803/17 Overview: Added automatically from request for surgery [id number] Osteoarthritis of ankle or foot 10/14/2017 04/02/2020 Overview: Added automatically from request for surgery [id number] Synovitis 10/14/2017 04/02/2020 Overview: Added automatically from request for surgery [id number] Osteoarthrosis, localized, secondary, ankle or f oot 08/07/2015 04/02/2020 documented as of this encounter (statuses as of 05/15/2022) [facility] History of Past illness Narrative* Problem Noted Date Resolved Date Primary osteoarthritis of right hip 12/18/2020 12/19/2020 Osteoarthritis of both feet 04/14/201803/17 Overview: Added automatically from request for surgery [id number] Osteoarthritis of ankle or foot 10/14/2017 04/02/2020 Overview: Added automatically from request for surgery [id number] Synovitis 10/14/2017 04/02/2020 Overview: Added automatically from request for surgery [id number] Osteoarthrosis, localized, secondary, ankle or f oot 08/07/2015 04/02/2020 documented as of this encounter (statuses as of 05/15/2022) [facility] History of Past illness Narrative* Problem Noted Date Resolved Date Primary osteoarthritis of right hip 12/18/2020 12/19/2020 Osteoarthritis of both feet 04/14/201803/17 Overview: Added automatically from request for surgery [id number] Osteoarthritis of ankle or foot 10/14/2017 04/02/2020 Overview: Added automatically from request for surgery [id number] Synovitis 10/14/2017 04/02/2020 Overview: Added automatically from request for surgery [id number] Osteoarthrosis, localized, secondary, ankle or f oot 08/07/2015 04/02/2020 documented as of this encounter (statuses as of 05/19/2022) [facility] History of Past illness Narrative* Problem Noted Date Resolved Date Primary osteoarthritis of right hip 12/18/2020 12/19/2020 Osteoarthritis of both feet 04/14/201803/17 Overview: Added automatically from request for surgery [id number] Osteoarthritis of ankle or foot 10/14/2017 04/02/2020 Overview: Added automatically from request for surgery [id number] Synovitis 10/14/2017 04/02/2020 Overview: Added automatically from request for surgery [id number] Osteoarthrosis, localized, secondary, ankle or f oot 08/07/2015 04/02/2020 documented as of this encounter (statuses as of 05/19/2022) [facility] History of Past illness Narrative* Problem Noted Date Resolved Date Primary osteoarthritis of right hip 12/18/2020 12/19/2020 Osteoarthritis of both feet 04/14/201803/17 Overview: Added automatically from request for surgery [id number] Osteoarthritis of ankle or foot 10/14/2017 04/02/2020 Overview: Added automatically from request for surgery [id number] Synovitis 10/14/2017 04/02/2020 Overview: Added automatically from request for surgery [id number] Osteoarthrosis, localized, secondary, ankle or f oot 08/07/2015 04/02/2020 documented as of this encounter (statuses as of 05/26/2022) [facility] History of Past illness Narrative* Problem Noted Date Resolved Date Primary osteoarthritis of right hip 12/18/2020 12/19/2020 Osteoarthritis of both feet 04/14/201803/17 Overview: Added automatically from request for surgery [id number] Osteoarthritis of ankle or foot 10/14/2017 04/02/2020 Overview: Added automatically from request for surgery [id number] Synovitis 10/14/2017 04/02/2020 Overview: Added automatically from request for surgery [id number] Osteoarthrosis, localized, secondary, ankle or f oot 08/07/2015 04/02/2020 documented as of this encounter (statuses as of 06/11/2022) [facility] History of Past illness Narrative* Problem Noted Date Resolved Date Primary osteoarthritis of right hip 12/18/2020 12/19/2020 Osteoarthritis of both feet 04/14/201803/17 Overview: Added automatically from request for surgery [id number] Osteoarthritis of ankle or foot 10/14/2017 04/02/2020 Overview: Added automatically from request for surgery [id number] Synovitis 10/14/2017 04/02/2020 Overview: Added automatically from request for surgery [id number] Osteoarthrosis, localized, secondary, ankle or f oot 08/07/2015 04/02/2020 documented as of this encounter (statuses as of 06/12/2022) [facility] History of Past illness Narrative* Problem Noted Date Resolved Date Primary osteoarthritis of right hip 12/18/2020 12/19/2020 Osteoarthritis of both feet 04/14/201803/17 Overview: Added automatically from request for surgery [id number] Osteoarthritis of ankle or foot 10/14/2017 04/02/2020 Overview: Added automatically from request for surgery [id number] Synovitis 10/14/2017 04/02/2020 Overview: Added automatically from request for surgery [id number] Osteoarthrosis, localized, secondary, ankle or f oot 08/07/2015 04/02/2020 documented as of this encounter (statuses as of 06/18/2022) [facility] History of Past illness Narrative* Problem Noted Date Resolved Date Primary osteoarthritis of right hip 12/18/2020 12/19/2020 Osteoarthritis of both feet 04/14/201803/17 Overview: Added automatically from request for surgery [id number] Osteoarthritis of ankle or foot 10/14/2017 04/02/2020 Overview: Added automatically from request for surgery [id number] Synovitis 10/14/2017 04/02/2020 Overview: Added automatically from request for surgery [id number] Osteoarthrosis, localized, secondary, ankle or f oot 08/07/2015 04/02/2020 documented as of this encounter (statuses as of 06/19/2022) [facility] History of Past illness Narrative* Problem Noted Date Resolved Date Primary osteoarthritis of right hip 12/18/2020 12/19/2020 Osteoarthritis of both feet 04/14/201803/17 Overview: Added automatically from request for surgery [id number] Osteoarthritis of ankle or foot 10/14/2017 04/02/2020 Overview: Added automatically from request for surgery [id number] Synovitis 10/14/2017 04/02/2020 Overview: Added automatically from request for surgery [id number] Osteoarthrosis, localized, secondary, ankle or f oot 08/07/2015 04/02/2020 documented as of this encounter (statuses as of 07/01/2022) [facility] History of Past illness Narrative* Problem Noted Date Resolved Date Primary osteoarthritis of right hip 12/18/2020 12/19/2020 Osteoarthritis of both feet 04/14/201803/17 Overview: Added automatically from request for surgery [id number] Osteoarthritis of ankle or foot 10/14/2017 04/02/2020 Overview: Added automatically from request for surgery [id number] Synovitis 10/14/2017 04/02/2020 Overview: Added automatically from request for surgery [id number] Osteoarthrosis, localized, secondary, ankle or f oot 08/07/2015 04/02/2020 documented as of this encounter (statuses as of 07/01/2022) [facility] History of Past illness Narrative* Problem Noted Date Resolved Date Primary osteoarthritis of right hip 12/18/2020 12/19/2020 Osteoarthritis of both feet 04/14/201803/17 Overview: Added automatically from request for surgery [id number] Osteoarthritis of ankle or foot 10/14/2017 04/02/2020 Overview: Added automatically from request for surgery [id number] Synovitis 10/14/2017 04/02/2020 Overview: Added automatically from request for surgery [id number] Osteoarthrosis, localized, secondary, ankle or f oot 08/07/2015 04/02/2020 documented as of this encounter (statuses as of 07/07/2022) [facility] History of Past illness Narrative* Problem Noted Date Resolved Date Primary osteoarthritis of right hip 12/18/2020 12/19/2020 Osteoarthritis of both feet 04/14/201803/17 Overview: Added automatically from request for surgery [id number] Osteoarthritis of ankle or foot 10/14/2017 04/02/2020 Overview: Added automatically from request for surgery [id number] Synovitis 10/14/2017 04/02/2020 Overview: Added automatically from request for surgery [id number] Osteoarthrosis, localized, secondary, ankle or f oot 08/07/2015 04/02/2020 documented as of this encounter (statuses as of 07/08/2022) [facility] History of Past illness Narrative* Problem Noted Date Resolved Date Primary osteoarthritis of right hip 12/18/2020 12/19/2020 Osteoarthritis of both feet 04/14/201803/17 Overview: Added automatically from request for surgery [id number] Osteoarthritis of ankle or foot 10/14/2017 04/02/2020 Overview: Added automatically from request for surgery [id number] Synovitis 10/14/2017 04/02/2020 Overview: Added automatically from request for surgery [id number] Osteoarthrosis, localized, secondary, ankle or f oot 08/07/2015 04/02/2020 documented as of this encounter (statuses as of 07/08/2022) [facility] History of Past illness Narrative* Problem Noted Date Resolved Date Primary osteoarthritis of right hip 12/18/2020 12/19/2020 Osteoarthritis of both feet 04/14/201803/17 Overview: Added automatically from request for surgery [id number] Osteoarthritis of ankle or foot 10/14/2017 04/02/2020 Overview: Added automatically from request for surgery [id number] Synovitis 10/14/2017 04/02/2020 Overview: Added automatically from request for surgery [id number] Osteoarthrosis, localized, secondary, ankle or f oot 08/07/2015 04/02/2020 documented as of this encounter (statuses as of 07/08/2022) [facility] History of Past illness Narrative* Problem Noted Date Resolved Date Primary osteoarthritis of right hip 12/18/2020 12/19/2020 Osteoarthritis of both feet 04/14/201803/17 Overview: Added automatically from request for surgery [id number] Osteoarthritis of ankle or foot 10/14/2017 04/02/2020 Overview: Added automatically from request for surgery [id number] Synovitis 10/14/2017 04/02/2020 Overview: Added automatically from request for surgery [id number] Osteoarthrosis, localized, secondary, ankle or f oot 08/07/2015 04/02/2020 documented as of this encounter (statuses as of 07/11/2022) [facility] History of Past illness Narrative* Problem Noted Date Resolved Date Primary osteoarthritis of right hip 12/18/2020 12/19/2020 Osteoarthritis of ankle or foot 10/14/2017 04/02/2020 Overview: Added automatically from request for surgery [id number] Synovitis 10/14/2017 04/02/2020 Overview: Added automatically from request for surgery [id number] Osteoarthrosis, localized, secondary, ankle or f oot 08/07/2015 04/02/2020 documented as of this encounter (statuses as of 07/21/2022) [facility] History of Past illness Narrative* Problem Noted Date Resolved Date Primary osteoarthritis of right hip 12/18/2020 12/19/2020 Osteoarthritis of ankle or foot 10/14/2017 04/02/2020 Overview: Added automatically from request for surgery [id number] Synovitis 10/14/2017 04/02/2020 Overview: Added automatically from request for surgery [id number] Osteoarthrosis, localized, secondary, ankle or f oot 08/07/2015 04/02/2020 documented as of this encounter (statuses as of 07/31/2022) [facility] History of Past illness Narrative* Problem Noted Date Resolved Date Primary osteoarthritis of right hip 12/18/2020 12/19/2020 Osteoarthritis of ankle or foot 10/14/2017 04/02/2020 Overview: Added automatically from request for surgery [id number] Synovitis 10/14/2017 04/02/2020 Overview: Added automatically from request for surgery [id number] Osteoarthrosis, localized, secondary, ankle or f oot 08/07/2015 04/02/2020 documented as of this encounter (statuses as of 08/08/2022) [facility] History of Past illness Narrative* Problem Noted Date Resolved Date Primary osteoarthritis of right hip 12/18/2020 12/19/2020 Osteoarthritis of ankle or foot 10/14/2017 04/02/2020 Overview: Added automatically from request for surgery [id number] Synovitis 10/14/2017 04/02/2020 Overview: Added automatically from request for surgery [id number] Osteoarthrosis, localized, secondary, ankle or f oot 08/07/2015 04/02/2020 documented as of this encounter (statuses as of 08/22/2022) [facility] History of Past illness Narrative* Problem Noted Date Resolved Date Primary osteoarthritis of right hip 12/18/2020 12/19/2020 Osteoarthritis of ankle or foot 10/14/2017 04/02/2020 Overview: Added automatically from request for surgery [id number] Synovitis 10/14/2017 04/02/2020 Overview: Added automatically from request for surgery [id number] Osteoarthrosis, localized, secondary, ankle or f oot 08/07/2015 04/02/2020 documented as of this encounter (statuses as of 08/23/2022) [facility] History of Past illness Narrative* Problem Noted Date Resolved Date Primary osteoarthritis of right hip 12/18/2020 12/19/2020 Osteoarthritis of ankle or foot 10/14/2017 04/02/2020 Overview: Added automatically from request for surgery [id number] Synovitis 10/14/2017 04/02/2020 Overview: Added automatically from request for surgery [id number] Osteoarthrosis, localized, secondary, ankle or f oot 08/07/2015 04/02/2020 documented as of this encounter (statuses as of 08/25/2022) [facility] History of Past illness Narrative* Problem Noted Date Resolved Date Primary osteoarthritis of right hip 12/18/2020 12/19/2020 Osteoarthritis of ankle or foot 10/14/2017 04/02/2020 Overview: Added automatically from request for surgery [id number] Synovitis 10/14/2017 04/02/2020 Overview: Added automatically from request for surgery [id number] Osteoarthrosis, localized, secondary, ankle or f oot 08/07/2015 04/02/2020 documented as of this encounter (statuses as of 08/26/2022) [facility] History of Past illness Narrative* Problem Noted Date Resolved Date Primary osteoarthritis of right hip 12/18/2020 12/19/2020 Osteoarthritis of ankle or foot 10/14/2017 04/02/2020 Overview: Added automatically from request for surgery [id number] Synovitis 10/14/2017 04/02/2020 Overview: Added automatically from request for surgery [id number] Osteoarthrosis, localized, secondary, ankle or f oot 08/07/2015 04/02/2020 documented as of this encounter (statuses as of 09/09/2022) [facility] History of Past illness Narrative* Problem Noted Date Resolved Date Primary osteoarthritis of right hip 12/18/2020 12/19/2020 Osteoarthritis of ankle or foot 10/14/2017 04/02/2020 Overview: Added automatically from request for surgery [id number] Synovitis 10/14/2017 04/02/2020 Overview: Added automatically from request for surgery [id number] Osteoarthrosis, localized, secondary, ankle or f oot 08/07/2015 04/02/2020 documented as of this encounter (statuses as of 09/12/2022) [facility] History of Past illness Narrative* Problem Noted Date Resolved Date Primary osteoarthritis of right hip 12/18/2020 12/19/2020 Osteoarthritis of ankle or foot 10/14/2017 04/02/2020 Overview: Added automatically from request for surgery [id number] Synovitis 10/14/2017 04/02/2020 Overview: Added automatically from request for surgery [id number] Osteoarthrosis, localized, secondary, ankle or f oot 08/07/2015 04/02/2020 documented as of this encounter (statuses as of 09/15/2022) [facility] History of Past illness Narrative* Problem Noted Date Resolved Date Primary osteoarthritis of right hip 12/18/2020 12/19/2020 Osteoarthritis of ankle or foot 10/14/2017 04/02/2020 Overview: Added automatically from request for surgery [id number] Synovitis 10/14/2017 04/02/2020 Overview: Added automatically from request for surgery [id number] Osteoarthrosis, localized, secondary, ankle or f oot 08/07/2015 04/02/2020 documented as of this encounter (statuses as of 09/15/2022) [facility] History of Past illness Narrative* Problem Noted Date Resolved Date Primary osteoarthritis of right hip 12/18/2020 12/19/2020 Osteoarthritis of ankle or foot 10/14/2017 04/02/2020 Overview: Added automatically from request for surgery [id number] Synovitis 10/14/2017 04/02/2020 Overview: Added automatically from request for surgery [id number] Osteoarthrosis, localized, secondary, ankle or f oot 08/07/2015 04/02/2020 documented as of this encounter (statuses as of 09/22/2022) [facility] History of Past illness Narrative* Problem Noted Date Resolved Date Primary osteoarthritis of right hip 12/18/2020 12/19/2020 Osteoarthritis of ankle or foot 10/14/2017 04/02/2020 Overview: Added automatically from request for surgery [id number] Synovitis 10/14/2017 04/02/2020 Overview: Added automatically from request for surgery [id number] Osteoarthrosis, localized, secondary, ankle or f oot 08/07/2015 04/02/2020 documented as of this encounter (statuses as of 09/24/2022) [facility] History of Past illness Narrative* Problem Noted Date Resolved Date Primary osteoarthritis of right hip 12/18/2020 12/19/2020 Osteoarthritis of ankle or foot 10/14/2017 04/02/2020 Overview: Added automatically from request for surgery [id number] Synovitis 10/14/2017 04/02/2020 Overview: Added automatically from request for surgery [id number] Osteoarthrosis, localized, secondary, ankle or f oot 08/07/2015 04/02/2020 documented as of this encounter (statuses as of 10/02/2022) [facility] History of Past illness Narrative* Problem Noted Date Resolved Date Primary osteoarthritis of right hip 12/18/2020 12/19/2020 Osteoarthritis of ankle or foot 10/14/2017 04/02/2020 Overview: Added automatically from request for surgery [id number] Synovitis 10/14/2017 04/02/2020 Overview: Added automatically from request for surgery [id number] Osteoarthrosis, localized, secondary, ankle or f oot 08/07/2015 04/02/2020 documented as of this encounter (statuses as of 10/16/2022) [facility] History of Past illness Narrative* Problem Noted Date Resolved Date Primary osteoarthritis of right hip 12/18/2020 12/19/2020 Osteoarthritis of ankle or foot 10/14/2017 04/02/2020 Overview: Added automatically from request for surgery [id number] Synovitis 10/14/2017 04/02/2020 Overview: Added automatically from request for surgery [id number] Osteoarthrosis, localized, secondary, ankle or f oot 08/07/2015 04/02/2020 documented as of this encounter (statuses as of 10/17/2022) [facility] History of Past illness Narrative* Problem Noted Date Resolved Date Primary osteoarthritis of right hip 12/18/2020 12/19/2020 Osteoarthritis of ankle or foot 10/14/2017 04/02/2020 Overview: Added automatically from request for surgery [id number] Synovitis 10/14/2017 04/02/2020 Overview: Added automatically from request for surgery [id number] Osteoarthrosis, localized, secondary, ankle or f oot 08/07/2015 04/02/2020 documented as of this encounter (statuses as of 10/22/2022) [facility] History of Past illness Narrative* Problem Noted Date Resolved Date Primary osteoarthritis of right hip 12/18/2020 12/19/2020 Osteoarthritis of ankle or foot 10/14/2017 04/02/2020 Overview: Added automatically from request for surgery [id number] Synovitis 10/14/2017 04/02/2020 Overview: Added automatically from request for surgery [id number] Osteoarthrosis, localized, secondary, ankle or f oot 08/07/2015 04/02/2020 documented as of this encounter (statuses as of 10/22/2022) [facility]05-04-2021 History of Past illness Narrative* Problem Noted Date Resolved Date Primary osteoarthritis of right hip 12/18/2020 12/19/2020 Osteoarthritis of ankle or foot 10/14/2017 04/02/2020 Overview: Added automatically from request for surgery [id number] Synovitis 10/14/2017 04/02/2020 Overview: Added automatically from request for surgery [id number] Osteoarthrosis, localized, secondary, ankle or f oot 08/07/2015 04/02/2020 documented as of this encounter (statuses as of 10/23/2022) [facility]2021 History of Past illness Narrative* Problem Noted Date Resolved Date Primary osteoarthritis of right hip 12/18/2020 12/19/2020 Osteoarthritis of ankle or foot 10/14/2017 04/02/2020 Overview: Added automatically from request for surgery [id number] Synovitis 10/14/2017 04/02/2020 Overview: Added automatically from request for surgery [id number] Osteoarthrosis, localized, secondary, ankle or f oot 08/07/2015 04/02/2020 documented as of this encounter (statuses as of 10/24/2022) [facility]21 History of Past illness Narrative* Problem Noted Date Resolved Date Primary osteoarthritis of right hip 12/18/2020 12/19/2020 Osteoarthritis of ankle or foot 10/14/2017 04/02/2020 Overview: Added automatically from request for surgery [id number] Synovitis 10/14/2017 04/02/2020 Overview: Added automatically from request for surgery [id number] Osteoarthrosis, localized, secondary, ankle or f oot 08/07/2015 04/02/2020 documented as of this encounter (statuses as of 10/24/2022) [facility]21 History of Past illness Narrative* Problem Noted Date Resolved Date Primary osteoarthritis of right hip 12/18/2020 12/19/2020 Osteoarthritis of ankle or foot 10/14/2017 04/02/2020 Overview: Added automatically from request for surgery [id number] Synovitis 10/14/2017 04/02/2020 Overview: Added automatically from request for surgery [id number] Osteoarthrosis, localized, secondary, ankle or f oot 08/07/2015 04/02/2020 documented as of this encounter (statuses as of 10/29/2022) [facility]21 History of Past illness Narrative* Problem Noted Date Resolved Date Primary osteoarthritis of right hip 12/18/2020 12/19/2020 Osteoarthritis of ankle or foot 10/14/2017 04/02/2020 Overview: Added automatically from request for surgery [id number] Synovitis 10/14/2017 04/02/2020 Overview: Added automatically from request for surgery [id number] Osteoarthrosis, localized, secondary, ankle or f oot 08/07/2015 04/02/2020 documented as of this encounter (statuses as of 10/29/2022) [facility]21 History of Past illness Narrative* Problem Noted Date Resolved Date Primary osteoarthritis of right hip 12/18/2020 12/19/2020 Osteoarthritis of ankle or foot 10/14/2017 04/02/2020 Overview: Added automatically from request for surgery [id number] Synovitis 10/14/2017 04/02/2020 Overview: Added automatically from request for surgery [id number] Osteoarthrosis, localized, secondary, ankle or f oot 08/07/2015 04/02/2020 documented as of this encounter (statuses as of 11/25/2022) [facility]21 History of Past illness Narrative* Problem Noted Date Resolved Date Primary osteoarthritis of right hip 12/18/2020 12/19/2020 Osteoarthritis of ankle or foot 10/14/2017 04/02/2020 Overview: Added automatically from request for surgery [id number] Synovitis 10/14/2017 04/02/2020 Overview: Added automatically from request for surgery [id number] Osteoarthrosis, localized, secondary, ankle or f oot 08/07/2015 04/02/2020 documented as of this encounter (statuses as of 12/12/2022) [facility]21 History of Past illness Narrative* Problem Noted Date Resolved Date Primary osteoarthritis of right hip 12/18/2020 12/19/2020 Osteoarthritis of ankle or foot 10/14/2017 04/02/2020 Overview: Added automatically from request for surgery [id number] Synovitis 10/14/2017 04/02/2020 Overview: Added automatically from request for surgery [id number] Osteoarthrosis, localized, secondary, ankle or f oot 08/07/2015 04/02/2020 documented as of this encounter (statuses as of 12/15/2022) [facility] History of Past illness Narrative* Problem Noted Date Resolved Date Primary osteoarthritis of right hip 12/18/2020 12/19/2020 Osteoarthritis of ankle or foot 10/14/2017 04/02/2020 Overview: Added automatically from request for surgery [id number] Synovitis 10/14/2017 04/02/2020 Overview: Added automatically from request for surgery [id number] Osteoarthrosis, localized, secondary, ankle or f oot 08/07/2015 04/02/2020 documented as of this encounter (statuses as of 12/20/2022) [facility]2021 History of Past illness Narrative* Problem Noted Date Resolved Date Primary osteoarthritis of right hip 12/18/2020 12/19/2020 Osteoarthritis of ankle or foot 10/14/2017 04/02/2020 Overview: Added automatically from request for surgery [id number] Synovitis 10/14/2017 04/02/2020 Overview: Added automatically from request for surgery [id number] Osteoarthrosis, localized, secondary, ankle or f oot 08/07/2015 04/02/2020 documented as of this encounter (statuses as of 01/13/2023) [facility]21 History of Past illness Narrative* Problem Noted Date Resolved Date Primary osteoarthritis of right hip 12/18/2020 12/19/2020 Osteoarthritis of ankle or foot 10/14/2017 04/02/2020 Overview: Added automatically from request for surgery [id number] Synovitis 10/14/2017 04/02/2020 Overview: Added automatically from request for surgery [id number] Osteoarthrosis, localized, secondary, ankle or f oot 08/07/2015 04/02/2020 documented as of this encounter (statuses as of 01/22/2023) [facility]21 History of Past illness Narrative* Problem Noted Date Resolved Date Primary osteoarthritis of right hip 12/18/2020 12/19/2020 Osteoarthritis of ankle or foot 10/14/2017 04/02/2020 Overview: Added automatically from request for surgery [id number] Synovitis 10/14/2017 04/02/2020 Overview: Added automatically from request for surgery [id number] Osteoarthrosis, localized, secondary, ankle or f oot 08/07/2015 04/02/2020 documented as of this encounter (statuses as of 02/05/2023) [facility] History of Past illness Narrative* Problem Noted Date Resolved Date Primary osteoarthritis of right hip 12/18/2020 12/19/2020 Osteoarthritis of ankle or foot 10/14/2017 04/02/2020 Overview: Added automatically from request for surgery [id number] Synovitis 10/14/2017 04/02/2020 Overview: Added automatically from request for surgery [id number] Osteoarthrosis, localized, secondary, ankle or f oot 08/07/2015 04/02/2020 documented as of this encounter (statuses as of 02/05/2023) [facility]21 History of Past illness Narrative* Problem Noted Date Resolved Date Primary osteoarthritis of right hip 12/18/2020 12/19/2020 Osteoarthritis of ankle or foot 10/14/2017 04/02/2020 Overview: Added automatically from request for surgery [id number] Synovitis 10/14/2017 04/02/2020 Overview: Added automatically from request for surgery [id number] Osteoarthrosis, localized, secondary, ankle or f oot 08/07/2015 04/02/2020 documented as of this encounter (statuses as of 02/09/2023) [facility]21 History of Past illness Narrative* Problem Noted Date Resolved Date Primary osteoarthritis of right hip 12/18/2020 12/19/2020 Osteoarthritis of ankle or foot 10/14/2017 04/02/2020 Overview: Added automatically from request for surgery [id number] Synovitis 10/14/2017 04/02/2020 Overview: Added automatically from request for surgery [id number] Osteoarthrosis, localized, secondary, ankle or f oot 08/07/2015 04/02/2020 documented as of this encounter (statuses as of 02/10/2023) [facility]21 History of Past illness Narrative* Problem Noted Date Resolved Date Primary osteoarthritis of right hip 12/18/2020 12/19/2020 Osteoarthritis of ankle or foot 10/14/2017 04/02/2020 Overview: Added automatically from request for surgery [id number] Synovitis 10/14/2017 04/02/2020 Overview: Added automatically from request for surgery [id number] Osteoarthrosis, localized, secondary, ankle or f oot 08/07/2015 04/02/2020 documented as of this encounter (statuses as of 02/13/2023) [facility]21 History of Past illness Narrative* Problem Noted Date Resolved Date Primary osteoarthritis of right hip 12/18/2020 12/19/2020 Osteoarthritis of ankle or foot 10/14/2017 04/02/2020 Overview: Added automatically from request for surgery [id number] Synovitis 10/14/2017 04/02/2020 Overview: Added automatically from request for surgery [id number] Osteoarthrosis, localized, secondary, ankle or f oot 08/07/2015 04/02/2020 documented as of this encounter (statuses as of 02/16/2023) [facility] History of Past illness Narrative* Problem Noted Date Resolved Date Primary osteoarthritis of right hip 12/18/2020 12/19/2020 Osteoarthritis of ankle or foot 10/14/2017 04/02/2020 Overview: Added automatically from request for surgery [id number] Synovitis 10/14/2017 04/02/2020 Overview: Added automatically from request for surgery [id number] Osteoarthrosis, localized, secondary, ankle or f oot 08/07/2015 04/02/2020 documented as of this encounter (statuses as of 02/19/2023) [facility] History of Past illness Narrative* Problem Noted Date Resolved Date Primary osteoarthritis of right hip 12/18/2020 12/19/2020 Osteoarthritis of ankle or foot 10/14/2017 04/02/2020 Overview: Added automatically from request for surgery [id number] Synovitis 10/14/2017 04/02/2020 Overview: Added automatically from request for surgery [id number] Osteoarthrosis, localized, secondary, ankle or f oot 08/07/2015 04/02/2020 documented as of this encounter (statuses as of 02/19/2023) [facility] History of Past illness Narrative* Problem Noted Date Diagnosed Date Resolved Date Primary osteoarthritis of right hip 12/18/2020 12/19/2020 Osteoarthritis of ankle or foot 10/14/2017 04/02/2020 Overview: Added automatically from request for surgery [id number] Synovitis 10/14/2017 04/02/2020 Overview: Added automatically from request for surgery [id number] Osteoarthrosis, localized, s econdary, ankle or foot 08/07/2015 04/02/2020 documented as of this encounter (statuses as of 03/12/2023) [facility] History of Past illness Narrative* Problem Noted Date Diagnosed Date Resolved Date Primary osteoarthritis of right hip 12/18/2020 12/19/2020 Osteoarthritis of ankle or foot 10/14/2017 04/02/2020 Overview: Added automatically from request for surgery [id number] Synovitis 10/14/2017 04/02/2020 Overview: Added automatically from request for surgery [id number] Osteoarthrosis, localized, s econdary, ankle or foot 08/07/2015 04/02/2020 documented as of this encounter (statuses as of 03/12/2023) [facility] History of Past illness Narrative* Problem Noted Date Diagnosed Date Resolved Date Primary osteoarthritis of right hip 12/18/2020 12/19/2020 Osteoarthritis of ankle or foot 10/14/2017 04/02/2020 Overview: Added automatically from request for surgery [id number] Synovitis 10/14/2017 04/02/2020 Overview: Added automatically from request for surgery [id number] Osteoarthrosis, localized, s econdary, ankle or foot 08/07/2015 04/02/2020 documented as of this encounter (statuses as of 03/16/2023) [facility]21 History of Past illness Narrative* Problem Noted Date Diagnosed Date Resolved Date Primary osteoarthritis of right hip 12/18/2020 12/19/2020 Osteoarthritis of ankle or foot 10/14/2017 04/02/2020 Overview: Added automatically from request for surgery [id number] Synovitis 10/14/2017 04/02/2020 Overview: Added automatically from request for surgery [id number] Osteoarthrosis, localized, s econdary, ankle or foot 08/07/2015 04/02/2020 documented as of this encounter (statuses as of 03/19/2023) [facility] History of Past illness Narrative* Problem Noted Date Diagnosed Date Resolved Date Primary osteoarthritis of right hip 12/18/2020 12/19/2020 Osteoarthritis of ankle or foot 10/14/2017 04/02/2020 Overview: Added automatically from request for surgery [id number] Synovitis 10/14/2017 04/02/2020 Overview: Added automatically from request for surgery [id number] Osteoarthrosis, localized, s econdary, ankle or foot 08/07/2015 04/02/2020 documented as of this encounter (statuses as of 03/19/2023) [facility] History of Past illness Narrative* Problem Noted Date Diagnosed Date Resolved Date Primary osteoarthritis of right hip 12/18/2020 12/19/2020 Osteoarthritis of ankle or foot 10/14/2017 04/02/2020 Overview: Added automatically from request for surgery [id number] Synovitis 10/14/2017 04/02/2020 Overview: Added automatically from request for surgery [id number] Osteoarthrosis, localized, s econdary, ankle or foot 08/07/2015 04/02/2020 documented as of this encounter (statuses as of 03/27/2023) [facility] History of Past illness Narrative* Problem Noted Date Diagnosed Date Resolved Date Primary osteoarthritis of right hip 12/18/2020 12/19/2020 Osteoarthritis of ankle or foot 10/14/2017 04/02/2020 Overview: Added automatically from request for surgery [id number] Synovitis 10/14/2017 04/02/2020 Overview: Added automatically from request for surgery [id number] Osteoarthrosis, localized, s econdary, ankle or foot 08/07/2015 04/02/2020 documented as of this encounter (statuses as of 04/03/2023) [facility] History of Past illness Narrative* Problem Noted Date Diagnosed Date Resolved Date Primary osteoarthritis of right hip 12/18/2020 12/19/2020 Osteoarthritis of ankle or foot 10/14/2017 04/02/2020 Overview: Added automatically from request for surgery [id number] Synovitis 10/14/2017 04/02/2020 Overview: Added automatically from request for surgery [id number] Osteoarthrosis, localized, s econdary, ankle or foot 08/07/2015 04/02/2020 documented as of this encounter (statuses as of 04/08/2023) [facility] History of Past illness Narrative* Problem Noted Date Diagnosed Date Resolved Date Primary osteoarthritis of right hip 12/18/2020 12/19/2020 Osteoarthritis of ankle or foot 10/14/2017 04/02/2020 Overview: Added automatically from request for surgery [id number] Synovitis 10/14/2017 04/02/2020 Overview: Added automatically from request for surgery [id number] Osteoarthrosis, localized, s econdary, ankle or foot 08/07/2015 04/02/2020 documented as of this encounter (statuses as of 04/10/2023) [facility] History of Past illness Narrative* Problem Noted Date Diagnosed Date Resolved Date Primary osteoarthritis of right hip 12/18/2020 12/19/2020 Osteoarthritis of ankle or foot 10/14/2017 04/02/2020 Overview: Added automatically from request for surgery [id number] Synovitis 10/14/2017 04/02/2020 Overview: Added automatically from request for surgery [id number] Osteoarthrosis, localized, s econdary, ankle or foot 08/07/2015 04/02/2020 documented as of this encounter (statuses as of 04/15/2023) [facility] History of Past illness Narrative* Problem Noted Date Diagnosed Date Resolved Date Primary osteoarthritis of right hip 12/18/2020 12/19/2020 Osteoarthritis of ankle or foot 10/14/2017 04/02/2020 Overview: Added automatically from request for surgery [id number] Synovitis 10/14/2017 04/02/2020 Overview: Added automatically from request for surgery [id number] Osteoarthrosis, localized, s econdary, ankle or foot 08/07/2015 04/02/2020 documented as of this encounter (statuses as of 04/17/2023) [facility] History of Past illness Narrative* Problem Noted Date Diagnosed Date Resolved Date Primary osteoarthritis of right hip 12/18/2020 12/19/2020 Osteoarthritis of ankle or foot 10/14/2017 04/02/2020 Overview: Added automatically from request for surgery [id number] Synovitis 10/14/2017 04/02/2020 Overview: Added automatically from request for surgery [id number] Osteoarthrosis, localized, s econdary, ankle or foot 08/07/2015 04/02/2020 documented as of this encounter (statuses as of 04/17/2023) [facility] History of Past illness Narrative* Problem Noted Date Diagnosed Date Resolved Date Primary osteoarthritis of right hip 12/18/2020 12/19/2020 Osteoarthritis of ankle or foot 10/14/2017 04/02/2020 Overview: Added automatically from request for surgery [id number] Synovitis 10/14/2017 04/02/2020 Overview: Added automatically from request for surgery [id number] Osteoarthrosis, localized, s econdary, ankle or foot 08/07/2015 04/02/2020 documented as of this encounter (statuses as of 04/27/2023) [facility] History of Past illness Narrative* Problem Noted Date Diagnosed Date Resolved Date Primary osteoarthritis of right hip 12/18/2020 12/19/2020 Osteoarthritis of ankle or foot 10/14/2017 04/02/2020 Overview: Added automatically from request for surgery [id number] Synovitis 10/14/2017 04/02/2020 Overview: Added automatically from request for surgery [id number] Osteoarthrosis, localized, s econdary, ankle or foot 08/07/2015 04/02/2020 documented as of this encounter (statuses as of 06/12/2023) [facility] History of Past illness Narrative* Problem Noted Date Diagnosed Date Resolved Date Primary osteoarthritis of right hip 12/18/2020 12/19/2020 Osteoarthritis of ankle or foot 10/14/2017 04/02/2020 Overview: Added automatically from request for surgery [id number] Synovitis 10/14/2017 04/02/2020 Overview: Added automatically from request for surgery [id number] Osteoarthrosis, localized, s econdary, ankle or foot 08/07/2015 04/02/2020 documented as of this encounter (statuses as of 06/16/2023) [facility] History of Past illness Narrative* Problem Noted Date Diagnosed Date Resolved Date Primary osteoarthritis of right hip 12/18/2020 12/19/2020 Osteoarthritis of ankle or foot 10/14/2017 04/02/2020 Overview: Added automatically from request for surgery [id number] Synovitis 10/14/2017 04/02/2020 Overview: Added automatically from request for surgery [id number] Osteoarthrosis, localized, s econdary, ankle or foot 08/07/2015 04/02/2020 documented as of this encounter (statuses as of 06/25/2023) [facility] History of Past illness Narrative* Problem Noted Date Diagnosed Date Resolved Date Primary osteoarthritis of right hip 12/18/2020 12/19/2020 Osteoarthritis of ankle or foot 10/14/2017 04/02/2020 Overview: Added automatically from request for surgery [id number] Synovitis 10/14/2017 04/02/2020 Overview: Added automatically from request for surgery [id number] Osteoarthrosis, localized, s econdary, ankle or foot 08/07/2015 04/02/2020 documented as of this encounter (statuses as of 07/01/2023) [facility] History of Past illness Narrative* Problem Noted Date Diagnosed Date Resolved Date Primary osteoarthritis of right hip 12/18/2020 12/19/2020 Osteoarthritis of ankle or foot 10/14/2017 04/02/2020 Overview: Added automatically from request for surgery [id number] Synovitis 10/14/2017 04/02/2020 Overview: Added automatically from request for surgery [id number] Osteoarthrosis, localized, s econdary, ankle or foot 08/07/2015 04/02/2020 documented as of this encounter (statuses as of 07/02/2023) [facility] History of Past illness Narrative* Problem Noted Date Diagnosed Date Resolved Date Primary osteoarthritis of right hip 12/18/2020 12/19/2020 Osteoarthritis of ankle or foot 10/14/2017 04/02/2020 Overview: Added automatically from request for surgery [id number] Synovitis 10/14/2017 04/02/2020 Overview: Added automatically from request for surgery [id number] Osteoarthrosis, localized, s econdary, ankle or foot 08/07/2015 04/02/2020 documented as of this encounter (statuses as of 07/02/2023) [facility] History of Past illness Narrative* Problem Noted Date Diagnosed Date Resolved Date Primary osteoarthritis of right hip 12/18/2020 12/19/2020 Osteoarthritis of ankle or foot 10/14/2017 04/02/2020 Overview: Added automatically from request for surgery [id number] Synovitis 10/14/2017 04/02/2020 Overview: Added automatically from request for surgery [id number] Osteoarthrosis, localized, s econdary, ankle or foot 08/07/2015 04/02/2020 documented as of this encounter (statuses as of 07/08/2023) [facility] History of Past illness Narrative* Problem Noted Date Diagnosed Date Resolved Date Primary osteoarthritis of right hip 12/18/2020 12/19/2020 Osteoarthritis of ankle or foot 10/14/2017 04/02/2020 Overview: Added automatically from request for surgery [id number] Synovitis 10/14/2017 04/02/2020 Overview: Added automatically from request for surgery [id number] Osteoarthrosis, localized, s econdary, ankle or foot 08/07/2015 04/02/2020 documented as of this encounter (statuses as of 07/21/2023) [facility] History of Past illness Narrative* Problem Noted Date Diagnosed Date Resolved Date Primary osteoarthritis of right hip 12/18/2020 12/19/2020 Osteoarthritis of ankle or foot 10/14/2017 04/02/2020 Overview: Added automatically from request for surgery [id number] Synovitis 10/14/2017 04/02/2020 Overview: Added automatically from request for surgery [id number] Osteoarthrosis, localized, s econdary, ankle or foot 08/07/2015 04/02/2020 documented as of this encounter (statuses as of 07/21/2023) [facility] History of Past illness Narrative* Problem Noted Date Diagnosed Date Resolved Date Primary osteoarthritis of right hip 12/18/2020 12/19/2020 Osteoarthritis of ankle or foot 10/14/2017 04/02/2020 Overview: Added automatically from request for surgery [id number] Synovitis 10/14/2017 04/02/2020 Overview: Added automatically from request for surgery [id number] Osteoarthrosis, localized, s econdary, ankle or foot 08/07/2015 04/02/2020 documented as of this encounter (statuses as of 09/29/2023) [facility] History of Past illness Narrative* Problem Noted Date Diagnosed Date Resolved Date Primary osteoarthritis of right hip 12/18/2020 12/19/2020 Osteoarthritis of ankle or foot 10/14/2017 04/02/2020 Overview: Added automatically from request for surgery [id number] Synovitis 10/14/2017 04/02/2020 Overview: Added automatically from request for surgery [id number] Osteoarthrosis, localized, s econdary, ankle or foot 08/07/2015 04/02/2020 documented as of this encounter (statuses as of 09/30/2023) [facility] History of Past illness Narrative* Problem Noted Date Diagnosed Date Resolved Date Primary osteoarthritis of right hip 12/18/2020 12/19/2020 Osteoarthritis of ankle or foot 10/14/2017 04/02/2020 Overview: Added automatically from request for surgery [id number] Synovitis 10/14/2017 04/02/2020 Overview: Added automatically from request for surgery [id number] Osteoarthrosis, localized, s econdary, ankle or foot 08/07/2015 04/02/2020 documented as of this encounter (statuses as of 10/01/2023) [facility] History of Past illness Narrative* Problem Noted Date Diagnosed Date Resolved Date Primary osteoarthritis of right hip 12/18/2020 12/19/2020 Osteoarthritis of ankle or foot 10/14/2017 04/02/2020 Overview: Added automatically from request for surgery [id number] Synovitis 10/14/2017 04/02/2020 Overview: Added automatically from request for surgery [id number] Osteoarthrosis, localized, s econdary, ankle or foot 08/07/2015 04/02/2020 documented as of this encounter (statuses as of 10/01/2023) [facility] History of Past illness Narrative* Problem Noted Date Diagnosed Date Resolved Date Primary osteoarthritis of right hip 12/18/2020 12/19/2020 Osteoarthritis of ankle or foot 10/14/2017 04/02/2020 Overview: Added automatically from request for surgery [id number] Synovitis 10/14/2017 04/02/2020 Overview: Added automatically from request for surgery [id number] Osteoarthrosis, localized, s econdary, ankle or foot 08/07/2015 04/02/2020 documented as of this encounter (statuses as of 10/09/2023) [facility] History of Past illness Narrative* Problem Noted Date Diagnosed Date Resolved Date Primary osteoarthritis of right hip 12/18/2020 12/19/2020 Osteoarthritis of ankle or foot 10/14/2017 04/02/2020 Overview: Added automatically from request for surgery [id number] Synovitis 10/14/2017 04/02/2020 Overview: Added automatically from request for surgery [id number] Osteoarthrosis, localized, s econdary, ankle or foot 08/07/2015 04/02/2020 documented as of this encounter (statuses as of 10/14/2023) [facility]21 History of Past illness Narrative* Problem Noted Date Diagnosed Date Resolved Date Primary osteoarthritis of right hip 12/18/2020 12/19/2020 Osteoarthritis of ankle or foot 10/14/2017 04/02/2020 Overview: Added automatically from request for surgery [id number] Synovitis 10/14/2017 04/02/2020 Overview: Added automatically from request for surgery [id number] Osteoarthrosis, localized, s econdary, ankle or foot 08/07/2015 04/02/2020 documented as of this encounter (statuses as of 10/24/2023) [facility]-04-2021 History of Past illness Narrative* Problem Noted Date Diagnosed Date Resolved Date Primary osteoarthritis of right hip 12/18/2020 12/19/2020 Osteoarthritis of ankle or foot 10/14/2017 04/02/2020 Overview: Added automatically from request for surgery [id number] Synovitis 10/14/2017 04/02/2020 Overview: Added automatically from request for surgery [id number] Osteoarthrosis, localized, s econdary, ankle or foot 08/07/2015 04/02/2020 documented as of this encounter (statuses as of 10/24/2023) [facility]21 History of Past illness Narrative* Problem Noted Date Diagnosed Date Resolved Date Primary osteoarthritis of right hip 12/18/2020 12/19/2020 Osteoarthritis of ankle or foot 10/14/2017 04/02/2020 Overview: Added automatically from request for surgery [id number] Synovitis 10/14/2017 04/02/2020 Overview: Added automatically from request for surgery [id number] Osteoarthrosis, localized, s econdary, ankle or foot 08/07/2015 04/02/2020 documented as of this encounter (statuses as of 10/28/2023) [facility] History of Past illness Narrative* Problem Noted Date Diagnosed Date Resolved Date Osteoarthritis of ankle or foot 10/14/2017 04/02/2020 Overview: Added automatically from request for surgery [id number] Synovitis 10/14/2017 04/02/2020 Overview: Added automatically from request for surgery [id number] Osteoarthrosis, localized, s econdary, ankle or foot 08/07/2015 04/02/2020 documented as of this encounter (statuses as of 03/27/2023) [facility]y Conway [facility] November 26, 2023 1:52pm Note Date/Time November 26, 2023 1:5 2pm [facility] [address] [place] [address] Discharge Summary Signed Patient: Jesus Wolf MR#: [id number] : 1955 Acct:[id number] Age/Sex: 68 / F Adm Date: 4 Loc: PO Room: Attending Dr: Yuriy Conway MD Copies to: DO Yuriy Helms MD, [facility]~ Providers Date of Discharge: 11/26/23 Discharging Provider: Yuriy Conway Primary Care Provider: Wojciech Treviño Discharge Diagnosis Final Diagnosis Final Discharge Diagnosis: Persistent atrial fibrillation with successful cardioversion Summary Hospital Course Hospital course: Outpatient procedure Time Spent with Patient Time spent providing/coordinating discharge services (# min): 20 Discharge Plan Discharge Plan Patient Disposition: Home Diet: Low-Sodium and Low-Cholesterol Prescriptions: New amiodarone 200 mg tablet 200 mg PO BID 30 Days Qty: 60 2RF hydroxychloroquine 200 mg tablet 200 mg PO DAILY 30 Days Qty: 30 2RF Continued atorvastatin 40 mg Tablet 40 mg PO DAILY Centrum Silver 0.4-300-250 mg-mcg-mcg Tablet 1 tab PO DAILY cholecalciferol (vitamin D3) 2,000 unit Tablet 2,000 unit PO DAILY alendronate [Fosamax] 70 mg tablet 70 mg PO QWEEK colestipol [Colestid] 1 gram tablet 2 g PO BID Eliquis 5 mg Tablet 5 mg PO BID celecoxib 200 mg Capsule 200 mg PO DAILY mesalamine [Lialda] 1.2 gram tablet,delayed release (DR/EC) 1.2 g PO QID belimumab 120 mg Recon Soln 10 mg/kg IV DIRECTED Rx Instructions: EVERY THREE MONTHS metoprolol succinate 100 mg tablet extended release 24 hr 50 mg PO QAM furosemide 40 mg Tablet 40 mg PO DAILY.8A 30 Days Qty: 30 0RF pantoprazole 40 mg tablet,delayed release (DR/EC) 40 mg PO DAILY Align 4 mg Capsule 4 mg PO DAILY levothyroxine 75 mcg tablet 50 mcg PO DAILY ferrous sulfate 325 mg (65 mg iron) Tablet 325 mg PO DAILY buspirone 10 mg Tablet 10 mg PO QHS Discontinued hydroxychloroquine 200 mg Tablet 200 mg PO BID metoprolol succinate 50 mg tablet extended release 24 hr 100 mg PO QHS amiodarone 200 mg tablet 200 mg PO DAILY Exam Physical Exam Vital Signs: Pulse Ox O2 Del Method O2 Flow Rate 99 Nasal Cannula 3 11/26/23 13:14 11/26/23 13:14 11/26/23 13:14 Diagnostic Studies Completed and Pending Studies Labs on day of discharge: 11/26/23 12:37: Sodium 142, Potassium 4.1, Chloride 109 H, Carbon Dioxide 25.2, Anion Gap 11.9 Documented By: Yuriy Conway MD, [facility] [id number] Signed By: <Electronically signed by MD ARMINDA Conway> 11/26/23 [id number] [facility] Work Phone: evaluation note* Diagnosis Systemic lupus erythematosus, unspecified SLE type, unspecified organ involvement status (HCC)- Primary High risk medication use Encounter for long-term (current) use of other medications Long-term use of Plaquenil Encounter for long-term (current) use of other medications documented in this encounter [facility] note* Diagnosis Systemic lupus erythematosus, unspecified SLE type, unspecified organ involvement status (HCC)- Primary High risk medication use Encounter for long-term (current) use of other medications [facility] Diagnosis Diarrhea, unspecified type documented in this encounter [facility] note* Diagnosis Medication refill Issue of repeat prescriptions documented in this encounter [facility] note* Diagnosis Onset Date Resolution Status Acute alteration in mental status acute Acute UTI acute Headache acute [facility] Work Phone: evaluation note* Diagnosis Onset Date Resolution Status Acute alteration in mental status acute Acute UTI acute Generalized weakness acute Headache acute Lupus acute Obesity acute MONI (obstructive sleep apnea) acute HLD (hyperlipidemia) chronic HTN (hypertension) chronic [facility] Work Phone: evaluation note* Diagnosis Diarrhea, unspecified type- Primary documented in this encounter [facility] note* Diagnosis Systemic lupus erythematosus, unspecified SLE type, unspecified organ involvement status (HCC) High risk medication use Encounter for long-term (current) use of other medications documented in this encounter [facility] note* Diagnosis C. difficile diarrhea- Primary Intestinal infection due to clostridium difficile [facility] Diagnosis Encounter for prophylactic measures, unspecified- Primary [facility]* Diagnosis Membranous lupus nephritis syndrome (HCC)- Primary Systemic lupus erythematosus High risk medication use Encounter for long-term (current) use of other medications Systemic lupus erythematosus, unspecified SLE type, unspecified organ involvement status (HCC) Asymptomatic postmenopausal status documented in this encounter [facility] note* Diagnosis Systemic lupus erythematosus, unspecified SLE type, unspecified organ involvement status (HCC)- Primary Membranous lupus nephritis syndrome (HCC) Systemic lupus erythematosus High risk medication use Encounter for long-term (current) use of other medications Encounter for prophylactic measures, unspecified documented in this encounter [facility] note* Diagnosis Asymptomatic postmenopausal status documented in this encounter [facility] note* Diagnosis Asymptomatic postmenopausal status- Primary Membranous lupus nephritis syndrome (HCC) Systemic lupus erythematosus High risk medication use Encounter for long-term (current) use of other medications documented in this encounter [facility] note* Diagnosis High risk medication use Encounter for long-term (current) use of other medications Systemic lupus erythematosus, unspecified SLE type, unspecified organ involvement status (HCC) documented in this encounter [facility] note* Diagnosis Hypertrophic obstructive cardiomyopathy (HCC)- Primary documented in this encounter [facility] note* Diagnosis Osteopenia, unspecified location- Primary Vitamin D deficiency disease Unspecified vitamin D deficiency Serum calcium elevated Hypercalcemia Balance problem Other symptoms involving nervous and musculoskeletal systems documented in this encounter [facility] note* Diagnosis Diarrhea, unspecified type documented in this encounter [facility] note* Diagnosis Osteopenia, unspecified location- Primary Balance problem Other symptoms involving nervous and musculoskeletal systems Hypercalcemia Hyperparathyroid (HCC) documented in this encounter [facility] note* Diagnosis Primary osteoarthritis of both feet- Primary documented in this encounter [facility] note* Diagnosis Hypercalcemia Hyperparathyroid (HCC) Primary osteoarthritis of both feet documented in this encounter [facility] note* Diagnosis Systemic lupus erythematosus, unspecified SLE type, unspecified organ involvement status (HCC)- Primary Hyperparathyroid (HCC) Primary osteoarthritis of both feet documented in this encounter [facility] note* Diagnosis Systemic lupus erythematosus, unspecified SLE type, unspecified organ involvement status (HCC)- Primary Primary osteoarthritis of both feet documented in this encounter [facility] note* Diagnosis Hyperparathyroidism (HCC)- Primary Hyperparathyroidism, unspecified Primary osteoarthritis of both feet documented in this encounter [facility] note* Diagnosis Hypercalcemia Hyperparathyroid (HCC) Primary hyperparathyroidism (HCC)- Primary Primary hyperparathyroidism Primary osteoarthritis of both feet documented in this encounter [facility] note* Diagnosis Hyperparathyroidism (HCC) Hyperparathyroidism, unspecified Primary osteoarthritis of both feet documented in this encounter [facility] note* Diagnosis Hypercalcemia Hyperparathyroid (HCC) Primary osteoarthritis of both feet Primary hyperparathyroidism (HCC) Primary hyperparathyroidism documented in this encounter [facility] note* Diagnosis Pre-op evaluation- Primary Preoperative examination, unspecified Ascending aortic aneurysm, unspecified whether ruptured Obesity, Class II, BMI 35-39.9 Obesity, unspecified Mixed hyperlipidemia Acquired hypothyroidism Unspecified hypothyroidism Chronic diastolic congestive heart failure (HCC) Chronic diastolic heart failure Obstructive sleep apnea syndrome Obstructive sleep apnea (adult) (pediatric) Systemic lupus erythematosus, unspecified SLE type, unspecified organ involvement status ([facility]) Fibromyalgia Mylagia and myositis, unspecified Essential hypertension Unspecified essential hypertension Paroxysmal atrial fibrillation (HCC) Atrial fibrillation Obesity, Class III, BMI >= 40 Morbid obesity Primary hyperparathyroidism (HCC) Primary hyperparathyroidism [facility] [place] [facility]* Diagnosis Hyperparathyroidism (HCC)- Primary Hyperparathyroidism, unspecified Primary hyperparathyroidism (HCC) Primary hyperparathyroidism documented in this encounter [facility] [place] [facility]* Diagnosis Systemic lupus erythematosus, unspecified SLE type, unspecified organ involvement status ([facility])- Primary documented in this encounter [facility] [place] [facility]* Diagnosis Mixed hyperlipidemia documented in this encounter [facility] [place] [facility]* Diagnosis C. difficile colitis- Primary Intestinal infection due to clostridium difficile documented in this encounter [facility] [place] [facility]* Diagnosis Osteopenia, unspecified location- Primary S/P parathyroidectomy ([facility]) Other 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 status halfway (current) use of 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 [facility] [place] [facility]* Diagnosis Diarrhea, unspecified type [facility] [place] [facility]* Diagnosis Diarrhea, unspecified type documented in this encounter [facility] [place] [facility]* Diagnosis Primary osteoarthritis of both feet- Primary Primary osteoarthritis of both feet documented in this encounter [facility] [place] [facility]* Diagnosis Systemic lupus erythematosus, unspecified SLE type, unspecified organ involvement status ([facility])- Primary High risk medication use Encounter for long-term (current) use of other medications documented in this encounter [facility] [place] [facility]* Diagnosis Diarrhea, unspecified type- Primary documented in this encounter [facility] [place] [facility]* Diagnosis Diarrhea, unspecified type [facility] [place] [facility]* Diagnosis Ulcer of toe of right foot, limited to breakdown of skin ([facility])- Primary Pre-ulcerative calluses Corns and callosities [facility] [place] [facility]* Diagnosis Systemic lupus erythematosus, unspecified SLE type, unspecified organ involvement status ([facility])- Primary Need for vaccination against Streptococcus pneumoniae Need for prophylactic vaccination against streptococcus pneumoniae (pneumococcus) documented in this encounter [facility] [place] [facility]* Diagnosis Chronic diastolic heart failure (HCC)- Primary Chronic diastolic heart failure documented in this encounter [facility] [place] [facility]* Diagnosis Ulcer of toe of right foot, limited to breakdown of skin (HCC)- Primary Pre-ulcerative calluses Corns and callosities Cellulitis of second toe of right foot Cellulitis and abscess of toe, unspecified documented in this encounter [facility] [place] [facility]* Diagnosis Systemic lupus erythematosus, unspecified SLE type, unspecified organ involvement status (HCC) High risk medication use Encounter for long-term (current) use of other medications [facility] [place] [facility]* Diagnosis IBD (inflammatory bowel disease)- Primary Other and unspecified noninfectious gastroenteritis and colitis [facility] [place] [facility]* Diagnosis Ulcer of toe of right foot, limited to breakdown of skin (HCC)- Primary Pre-ulcerative calluses Corns and callosities [facility] [place] [facility]* Diagnosis Systemic lupus erythematosus, unspecified SLE type, unspecified organ involvement status (HCC)- Primary [facility] [place] [facility]* Diagnosis Diarrhea, unspecified type Epigastric pain Abdominal pain, epigastric [facility] [place] [facility]* Diagnosis Calculus of gallbladder without cholecystitis without obstruction Calculus of gallbladder without mention of cholecystitis or obstruction [facility] [place] [facility]* Diagnosis IBD (inflammatory bowel disease) Other and unspecified noninfectious gastroenteritis and colitis [facility] [place] [facility]* Diagnosis Systemic lupus erythematosus, unspecified SLE type, unspecified organ involvement status (HCC)- Primary Thin blood (HCC) Thrombocytopenia, unspecified documented in this encounter [facility] [place] [facility]* Diagnosis Other ulcerative colitis without complication (HCC)- Primary Gastroesophageal reflux disease without esophagitis Esophageal reflux [facility] [place] [facility]* Diagnosis Diarrhea, unspecified type [facility] [place] [facility]* Diagnosis Mixed hyperlipidemia- Primary Hypomagnesemia Disorders of magnesium metabolism [facility] [place] [facility]* Diagnosis Chronic kidney disease, unspecified CKD stage- Primary Systemic lupus erythematosus, unspecified SLE type, unspecified organ involvement status (HCC) [facility] [place] [facility]* Diagnosis Systemic lupus erythematosus, unspecified SLE type, unspecified organ involvement status (HCC)- Primary High risk medication use Encounter for long-term (current) use of other medications [facility] Diagnosis Pain in left foot- Primary Pain in limb [facility] Diagnosis Ulcer of toe of right foot, limited to breakdown of skin (HCC)- Primary Pre-ulcerative calluses Corns and callosities Osteoarthritis of midtarsal joint of left foot Osteoarthritis of midtarsal joint of right foot [facility] Diagnosis Primary osteoarthritis of both feet- Primary Primary osteoarthritis of both feet [facility] Diagnosis Atypical atrial flutter (CMS/HCC)- Primary Paroxysmal atrial fibrillation (CMS/HCC) Atrial fibrillation Essential hypertension Unspecified essential hypertension Obstructive sleep apnea Obstructive sleep apnea (adult) (pediatric) Never smoked any substance Other forms of systemic lupus erythematosus, unspecified organ involvement status (CMS/HCC) Morbid obesity (CMS/HCC) Morbid obesity High risk medication use Dyslipidemia Other and unspecified hyperlipidemia documented in this encounter [facility] Work Phone: Evaluation noteNo assessment information available [facility] Work Phone: Evaluation note* Diagnosis 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 [facility] Diagnosis Systemic lupus erythematosus, unspecified SLE type, unspecified organ involvement status (HCC)- [facility] Pre-ulcerative calluses- Primary Corns and callosities Osteoarthritis of midtarsal joint of left foot Osteoarthritis of midtarsal joint of right foot [facility] Osteopenia, unspecified location- Primary S/P parathyroidectomy 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 Vitamin D deficiency disease Unspecified vitamin D deficiency [facility] Diagnosis 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 [facility]* Diagnosis Paroxysmal atrial fibrillation (CMS/HCC)- Primary Atrial fibrillation High risk medication use Essential hypertension Unspecified essential hypertension halfway current use of anticoagulant therapy Obstructive sleep apnea Obstructive sleep apnea (adult) (pediatric) BMI 40.0-44.9, adult (CMS/HCC) Never smoked any substance Systemic lupus erythematosus, unspecified SLE type, unspecified organ involvement status (CMS/HCC) documented in this encounter [facility] Work Phone: Evaluation note* Diagnosis Paroxysmal atrial fibrillation (CMS/HCC) Atrial fibrillation documented in this encounter [facility] Work Phone: Evaluation note* Diagnosis Atypical atrial flutter (CMS/HCC)- Primary Paroxysmal atrial fibrillation (CMS/HCC) Atrial fibrillation At medium risk for stroke Post-menopausal bleeding Postmenopausal bleeding Epistaxis documented in this encounter [facility] Work Phone: Evaluation note* Diagnosis Pre-ulcerative calluses- Primary Corns and callosities Osteoarthritis of midtarsal joint of left foot Hammertoe, bilateral Hav (hallux abducto valgus), unspecified laterality Pain due to onychomycosis of toenails of both feet [facility] [place] [facility]* Diagnosis Diarrhea, unspecified type- Primary Other ulcerative colitis without complication (HCC) [facility] [place] [facility]* Diagnosis Systemic lupus erythematosus, unspecified SLE type, unspecified organ involvement status (HCC)- Primary [facility] Diagnosis Systemic lupus erythematosus, unspecified SLE type, unspecified organ involvement status (HCC)- Primary [facility] [place] [facility]* Diagnosis Persistent atrial fibrillation (Multi)- Primary Atrial fibrillation Atypical atrial flutter (Multi) Persistent atrial fibrillation (Multi) Atrial fibrillation Atypical atrial flutter (Multi) documented in this encounter [facility] Work Phone: Evaluation note* Diagnosis Systemic lupus erythematosus, unspecified SLE type, unspecified organ involvement status (HCC)- Primary [facility] [place] [facility]* Diagnosis Systemic lupus erythematosus, unspecified SLE type, unspecified organ involvement status (HCC) High risk medication use Encounter for long-term (current) use of other medications [facility] [place] [facility]* Diagnosis Osteopenia of multiple sites- Primary S/P parathyroidectomy 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 Acute pain of left knee [facility] [place] [facility]* Diagnosis Osteopenia of multiple sites S/P parathyroidectomy 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 Acute pain of left knee documented in this encounter [facility] [place] [facility]* Diagnosis Osteopenia, unspecified location S/P parathyroidectomy 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 Vitamin D deficiency disease Unspecified vitamin D deficiency documented in this encounter [facility] note* Diagnosis Systemic lupus erythematosus, unspecified SLE type, unspecified organ involvement status (HCC)- Primary documented in this encounter [facility] note* Diagnosis Primary osteoarthritis of left knee- Primary Primary localized osteoarthrosis, lower leg Tendinosis of quadriceps tendon documented in this encounter [facility] note* Diagnosis Membranous glomerulonephritis Nephritis and nephropathy, not specified as acute or chronic, with lesion of membranous glomerulonephritis documented in this encounter [facility] note* Diagnosis Preop examination- Primary Preoperative examination, unspecified Other ulcerative colitis without complication (HCC) Atrial fibrillation, unspecified type (HCC) Essential hypertension Unspecified essential hypertension Sleep apnea, unspecified type Membranous glomerulonephritis Nephritis and nephropathy, not specified as acute or chronic, with lesion of membranous glomerulonephritis Systemic lupus erythematosus, unspecified SLE type, unspecified organ involvement status (HCC) Edema, unspecified type Obesity, Class III, BMI >= 40 Morbid obesity Pre-op evaluation- Primary Preoperative examination, unspecified Ascending aortic aneurysm, unspecified whether ruptured (HCC) Obesity, Class II, BMI 35-39.9 Obesity, unspecified [...] Class III, BMI >= 40 Morbid obesity Systemic lupus erythematosus, unspecified SLE type, unspecified organ involvement status (HCC)- Primary documented in this encounter [facility] note* Diagnosis Preop examination- Primary Preoperative examination, unspecified Other ulcerative colitis without complication (HCC) Atrial fibrillation, unspecified type (HCC) Essential hypertension Unspecified essential hypertension Sleep apnea, unspecified type Membranous glomerulonephritis Nephritis and nephropathy, not specified as acute or chronic, with lesion of membranous glomerulonephritis Systemic lupus erythematosus, unspecified SLE type, unspecified organ involvement status (HCC) Edema, unspecified type Obesity, Class III, BMI >= 40 Morbid obesity Pre-op evaluation- Primary Preoperative examination, unspecified Ascending aortic aneurysm, unspecified whether ruptured (HCC) Obesity, Class II, BMI 35-39.9 Obesity, unspecified [...] Class III, BMI >= 40 Morbid obesity Systemic lupus erythematosus, unspecified SLE type, unspecified organ involvement status (HCC)- Primary Left knee pain, unspecified chronicity- Primary documented in this encounter [facility] note* Diagnosis Preop examination- Primary Preoperative examination, unspecified Other ulcerative colitis without complication (HCC) Atrial fibrillation, unspecified type (HCC) Essential hypertension Unspecified essential hypertension Sleep apnea, unspecified type Membranous glomerulonephritis Nephritis and nephropathy, not specified as acute or chronic, with lesion of membranous glomerulonephritis Systemic lupus erythematosus, unspecified SLE type, unspecified organ involvement status (HCC) Edema, unspecified type Obesity, Class III, BMI >= 40 Morbid obesity Pain in right hip Pain in joint, pelvic region and thigh Pre-op evaluation- Primary Preoperative examination, unspecified Ascending aortic aneurysm, unspecified whether ruptured (HCC) Obesity, Class II, BMI 35-39.9 Obesity, unspecified [...] Class III, BMI >= 40 Morbid obesity Left knee pain, unspecified chronicity- Primary documented in this encounter [facility] note* Diagnosis Preop examination- Primary Preoperative examination, unspecified Other ulcerative colitis without complication (HCC) Atrial fibrillation, unspecified type (HCC) Essential hypertension Unspecified essential hypertension Sleep apnea, unspecified type Membranous glomerulonephritis Nephritis and nephropathy, not specified as acute or chronic, with lesion of membranous glomerulonephritis Systemic lupus erythematosus, unspecified SLE type, unspecified organ involvement status (HCC) Edema, unspecified type Obesity, Class III, BMI >= 40 Morbid obesity Post-op pain Other acute postoperative pain Pre-op evaluation- Primary Preoperative examination, unspecified Ascending aortic aneurysm, unspecified whether ruptured (HCC) Obesity, Class II, BMI 35-39.9 Obesity, unspecified [...] Class III, BMI >= 40 Morbid obesity Left knee pain, unspecified chronicity- Primary documented in this encounter [facility] note* Diagnosis Preop examination- Primary Preoperative examination, unspecified Other ulcerative colitis without complication (HCC) Atrial fibrillation, unspecified type (HCC) Essential hypertension Unspecified essential hypertension Sleep apnea, unspecified type Membranous glomerulonephritis Nephritis and nephropathy, not specified as acute or chronic, with lesion of membranous glomerulonephritis Systemic lupus erythematosus, unspecified SLE type, unspecified organ involvement status (HCC) Edema, unspecified type Obesity, Class III, BMI >= 40 Morbid obesity Pre-op evaluation- Primary Preoperative examination, unspecified Ascending aortic aneurysm, unspecified whether ruptured (HCC) Obesity, Class II, BMI 35-39.9 Obesity, unspecified [...] III, BMI >= 40 Morbid obesity Primary osteoarthritis of left knee- Primary Primary localized osteoarthrosis, lower leg Arthritis of left knee Unspecified arthropathy, lower leg Left knee pain, unspecified chronicity Left knee pain, unspecified chronicity documented in this encounter [facility] note* Diagnosis Preop examination- Primary Preoperative examination, unspecified Other ulcerative colitis without complication (HCC) Atrial fibrillation, unspecified type (HCC) Essential hypertension Unspecified essential hypertension Sleep apnea, unspecified type Membranous glomerulonephritis Nephritis and nephropathy, not specified as acute or chronic, with lesion of membranous glomerulonephritis Systemic lupus erythematosus, unspecified SLE type, unspecified organ involvement status (HCC) Edema, unspecified type Obesity, Class III, BMI >= 40 Morbid obesity Pre-op evaluation- Primary Preoperative examination, unspecified Ascending aortic aneurysm, unspecified whether ruptured (HCC) Obesity, Class II, BMI 35-39.9 Obesity, unspecified [...] Class III, BMI >= 40 Morbid obesity Left knee pain, unspecified chronicity documented in this encounter [facility] note* Diagnosis Pain Generalized pain Preop examination- Primary Preoperative examination, unspecified Other ulcerative colitis without complication (HCC) Atrial fibrillation, unspecified type (HCC) Essential hypertension Unspecified essential hypertension Sleep apnea, unspecified type Membranous glomerulonephritis Nephritis and nephropathy, not specified as acute or chronic, with lesion of membranous glomerulonephritis Systemic lupus erythematosus, unspecified SLE type, unspecified organ involvement status (HCC) Edema, unspecified type Obesity, Class III, BMI >= 40 Morbid obesity Pre-op evaluation- Primary Preoperative examination, unspecified Ascending aortic aneurysm, unspecified whether ruptured (HCC) Obesity, Class II, BMI 35-39.9 Obesity, unspecified [...] Class III, BMI >= 40 Morbid obesity [facility] [place] [facility]* Diagnosis Preop examination- Primary Preoperative examination, unspecified Other ulcerative colitis without complication (HCC) Atrial fibrillation, unspecified type (HCC) Essential hypertension Unspecified essential hypertension Sleep apnea, unspecified type Membranous glomerulonephritis Nephritis and nephropathy, not specified as acute or chronic, with lesion of membranous glomerulonephritis Systemic lupus erythematosus, unspecified SLE type, unspecified organ involvement status (HCC) Edema, unspecified type Obesity, Class III, BMI >= 40 Morbid obesity Pre-op evaluation- Primary Preoperative examination, unspecified Ascending aortic aneurysm, unspecified whether ruptured (HCC) Obesity, Class II, BMI 35-39.9 Obesity, unspecified [...] Class III, BMI >= 40 Morbid obesity Systemic lupus erythematosus, unspecified SLE type, unspecified organ involvement status (HCC)- Primary documented in this encounter [facility] note* Diagnosis Preop examination- Primary Preoperative examination, unspecified Other ulcerative colitis without complication (HCC) Atrial fibrillation, unspecified type (HCC) Essential hypertension Unspecified essential hypertension Sleep apnea, unspecified type Membranous glomerulonephritis Nephritis and nephropathy, not specified as acute or chronic, with lesion of membranous glomerulonephritis Systemic lupus erythematosus, unspecified SLE type, unspecified organ involvement status (HCC) Edema, unspecified type Obesity, Class III, BMI >= 40 Morbid obesity Pre-op evaluation- Primary Preoperative examination, unspecified Ascending aortic aneurysm, unspecified whether ruptured (HCC) Obesity, Class II, BMI 35-39.9 Obesity, unspecified [...] Class III, BMI >= 40 Morbid obesity Systemic lupus erythematosus, unspecified SLE type, unspecified organ involvement status (HCC)- Primary documented in this encounter [facility] note* Diagnosis Paroxysmal atrial fibrillation (Multi)- Primary Atrial fibrillation documented in this encounter [facility] Work Phone: Evaluation note* Diagnosis Paroxysmal atrial fibrillation (Multi) Atrial fibrillation Epistaxis Anemia, unspecified type Preop testing Unspecified pre-operative examination documented in this encounter [facility] Work Phone: Evaluation note* Diagnosis Paroxysmal atrial fibrillation (Multi) Atrial fibrillation Epistaxis Anemia, unspecified type Preop testing Unspecified pre-operative examination documented in this encounter [facility] Work Phone: Evaluation note* Diagnosis Paroxysmal atrial fibrillation (Multi)- Primary Atrial fibrillation documented in this encounter [facility] Work Phone: Evaluation note* Diagnosis Unilateral primary osteoarthritis, left knee- Primary documented in this encounter [facility]* Diagnosis Unilateral primary osteoarthritis, left knee- Primary documented in this encounter [facility]* Diagnosis Paroxysmal atrial fibrillation (Multi)- Primary Atrial fibrillation High risk medication use Chronic diastolic heart failure Shortness of breath Essential hypertension Unspecified essential hypertension Aneurysm of ascending aorta without rupture ([facility]) Obstructive sleep apnea Obstructive sleep apnea (adult) (pediatric) Never smoked any substance BMI 39.0-39.9,adult Deep vein thrombosis (DVT) of axillary vein of left upper extremity, unspecified chronicity (Multi) Other forms of systemic lupus erythematosus, unspecified organ involvement status (Multi) documented in this encounter [facility] Work Phone: Evaluation note* Diagnosis Preop examination- Primary Preoperative examination, unspecified Other ulcerative colitis without complication (HCC) Atrial fibrillation, unspecified type (HCC) Essential hypertension Unspecified essential hypertension Sleep apnea, unspecified type Membranous glomerulonephritis Nephritis and nephropathy, not specified as acute or chronic, with lesion of membranous glomerulonephritis Systemic lupus erythematosus, unspecified SLE type, unspecified organ involvement status (HCC) Edema, unspecified type Obesity, Class III, BMI >= 40 Morbid obesity Pre-op evaluation- Primary Preoperative examination, unspecified Ascending aortic aneurysm, unspecified whether ruptured (HCC) Obesity, Class II, BMI 35-39.9 Obesity, unspecified [...] Class III, BMI >= 40 Morbid obesity Paroxysmal atrial fibrillation (HCC)- Primary Atrial fibrillation Epistaxis Preoperative examination, unspecified Systemic lupus erythematosus, unspecified SLE type, unspecified organ involvement status (HCC) [facility] [place] [facility] Diagnosis Paroxysmal atrial fibrillation (Multi) Atrial fibrillation Epistaxis Anemia, unspecified type Preop testing Unspecified pre-operative examination documented in this encounter [facility] Work Phone: Evaluation note* Diagnosis Chronic diastolic heart failure Shortness of breath documented in this encounter [facility] Work Phone: Evaluation note* Diagnosis Viral upper respiratory tract infection- Primary Acute upper respiratory infections of unspecified site [facility]* Diagnosis Preop examination- Primary Preoperative examination, unspecified Other ulcerative colitis without complication (HCC) Atrial fibrillation, unspecified type (HCC) Essential hypertension Unspecified essential hypertension Sleep apnea, unspecified type Membranous glomerulonephritis Nephritis and nephropathy, not specified as acute or chronic, with lesion of membranous glomerulonephritis Systemic lupus erythematosus, unspecified SLE type, unspecified organ involvement status (HCC) Edema, unspecified type Obesity, Class III, BMI >= 40 Morbid obesity Pre-op evaluation- Primary Preoperative examination, unspecified Ascending aortic aneurysm, unspecified whether ruptured (HCC) Obesity, Class II, BMI 35-39.9 Obesity, unspecified [...] Class III, BMI >= 40 Morbid obesity Diarrhea, unspecified type- Primary Gastroesophageal reflux disease without esophagitis Esophageal reflux Bile acid malabsorption syndrome Other specified intestinal malabsorption Other ulcerative colitis without complication (HCC) [facility] [place] [facility]* Diagnosis Medicare annual wellness visit, subsequent- Primary Screening for depression [facility]* Diagnosis Essential hypertension- Primary Unspecified essential hypertension Localized osteoarthritis of left knee Varicose veins of left upper extremity Localized swelling, mass and lump, head Mixed hyperlipidemia Acquired hypothyroidism Unspecified hypothyroidism Hyperparathyroidism ([facility]) Hyperparathyroidism, unspecified Obesity, morbid ([facility]) Morbid obesity Encounter for screening mammogram for malignant neoplasm of breast Anxiety Anxiety state, unspecified documented [facility]* Diagnosis Acute deep vein thrombosis (DVT) of brachial vein of left upper extremity ([facility])- Primary Localized osteoarthritis of right knee Essential hypertension Unspecified essential hypertension Obesity, morbid ([facility]) Morbid obesity Need for immunization against influenza Need for prophylactic vaccination and inoculation against influenza documented [facility]* Diagnosis Acute deep vein thrombosis (DVT) of brachial vein of left upper extremity ([facility])- Primary Paroxysmal atrial fibrillation ([facility]) Atrial fibrillation Stage 3a chronic kidney disease ([facility]) Localized osteoarthritis of right knee Obesity, morbid ([facility]) Morbid obesity documented [facility]* Diagnosis Upper respiratory tract infection, unspecified type- Primary Pharyngitis, unspecified etiology documented [facility]* Diagnosis Preop examination- Primary Preoperative examination, unspecified Other ulcerative colitis without complication (HCC) Atrial fibrillation, unspecified type (HCC) Essential hypertension Unspecified essential hypertension Sleep apnea, unspecified type Membranous glomerulonephritis Nephritis and nephropathy, not specified as acute or chronic, with lesion of membranous glomerulonephritis Systemic lupus erythematosus, unspecified SLE type, unspecified organ involvement status ([facility]) Edema, unspecified type Obesity, Class III, BMI >= 40 Morbid obesity Pre-op evaluation- Primary Preoperative examination, unspecified Ascending aortic aneurysm, unspecified whether ruptured ([facility]) Obesity, Class II, BMI 35-39.9 Obesity, unspecified [...] Class III, BMI >= 40 Morbid obesity Systemic lupus erythematosus, unspecified SLE type, unspecified organ involvement status (HCC)- Primary [facility] [place] [facility]* Diagnosis Obstructive sleep apnea- Primary Obstructive sleep apnea (adult) (pediatric) Dyspnea on exertion Other dyspnea and respiratory abnormality Systemic lupus erythematosus, unspecified SLE type, unspecified organ involvement status ([facility]) Acute deep vein thrombosis (DVT) of brachial vein of left upper extremity ([facility]) Obesity, morbid ([facility]) Morbid obesity Chronic diastolic heart failure ([facility]) Atypical atrial flutter ([facility]) documented [facility]* Diagnosis Preop examination- Primary Preoperative examination, unspecified Other ulcerative colitis without complication (HCC) Atrial fibrillation, unspecified type (HCC) Essential hypertension Unspecified essential hypertension Sleep apnea, unspecified type Membranous glomerulonephritis Nephritis and nephropathy, not specified as acute or chronic, with lesion of membranous glomerulonephritis Systemic lupus erythematosus, unspecified SLE type, unspecified organ involvement status (HCC) Edema, unspecified type Obesity, Class III, BMI >= 40 Morbid obesity Pre-op evaluation- Primary Preoperative examination, unspecified Ascending [...] Class III, BMI >= 40 Morbid obesity Lupus nephritis, ISN/RPS class V (HCC)- Primary Stage 3a chronic kidney disease (HCC) Membranous glomerulonephritis Nephritis and nephropathy, not specified as acute or chronic, with lesion of membranous glomerulonephritis Hypertension, unspecified type documented in this encounter [facility] note* Diagnosis Preop examination- Primary Preoperative examination, unspecified Other ulcerative colitis without complication (HCC) Atrial fibrillation, unspecified type (HCC) Essential hypertension Unspecified essential hypertension Sleep apnea, unspecified type Membranous glomerulonephritis Nephritis and nephropathy, not specified as acute or chronic, with lesion of membranous glomerulonephritis Systemic lupus erythematosus, unspecified SLE type, unspecified organ involvement status (HCC) Edema, unspecified type Obesity, Class III, BMI >= 40 Morbid obesity Pre-op evaluation- Primary Preoperative examination, unspecified Ascending [...] Class III, BMI >= 40 Morbid obesity Diarrhea, unspecified type documented in this encounter [facility] note* Diagnosis Preop examination- Primary Preoperative examination, unspecified Other ulcerative colitis without complication (HCC) Atrial fibrillation, unspecified type (HCC) Essential hypertension Unspecified essential hypertension Sleep apnea, unspecified type Membranous glomerulonephritis Nephritis and nephropathy, not specified as acute or chronic, with lesion of membranous glomerulonephritis Systemic lupus erythematosus, unspecified SLE type, unspecified organ involvement status (HCC) Edema, unspecified type Obesity, Class III, BMI >= 40 Morbid obesity Pre-op evaluation- Primary Preoperative examination, unspecified Ascending [...] Class III, BMI >= 40 Morbid obesity Systemic lupus erythematosus, unspecified SLE type, unspecified organ involvement status (HCC)- Primary documented in this encounter [facility] note* Diagnosis Localized osteoarthritis of left knee- Primary [facility] [place] [facility]* Diagnosis Preop examination- Primary Preoperative examination, unspecified Other ulcerative colitis without complication (HCC) Atrial fibrillation, unspecified type (HCC) Essential hypertension Unspecified essential hypertension Sleep apnea, unspecified type Membranous glomerulonephritis Nephritis and nephropathy, not specified as acute or chronic, with lesion of membranous glomerulonephritis Systemic lupus erythematosus, unspecified SLE type, unspecified organ involvement status (HCC) Edema, unspecified type Obesity, Class III, BMI >= 40 Morbid obesity Pre-op evaluation- Primary Preoperative examination, unspecified Ascending [...] Class III, BMI >= 40 Morbid obesity Systemic lupus erythematosus, unspecified SLE type, unspecified organ involvement status (HCC) High risk medication use Encounter for long-term (current) use of other medications documented in this encounter [facility] [place] [facility]* Diagnosis Preop examination- Primary Preoperative examination, unspecified Other ulcerative colitis without complication (HCC) Atrial fibrillation, unspecified type (HCC) Essential hypertension Unspecified essential hypertension Sleep apnea, unspecified type Membranous glomerulonephritis Nephritis and nephropathy, not specified as acute or chronic, with lesion of membranous glomerulonephritis Systemic lupus erythematosus, unspecified SLE type, unspecified organ involvement status (HCC) Edema, unspecified type Obesity, Class III, BMI >= 40 Morbid obesity Pre-op evaluation- Primary Preoperative examination, unspecified Ascending [...] Class III, BMI >= 40 Morbid obesity Systemic lupus erythematosus, unspecified SLE type, unspecified organ involvement status (HCC)- Primary documented in this encounter [facility] note* Diagnosis Paroxysmal atrial fibrillation (Multi)- Primary Atrial fibrillation Presence of Watchman left atrial appendage closure device Deep vein thrombosis (DVT) of upper extremity, unspecified chronicity, unspecified laterality, unspecified vein halfway current use of anticoagulant therapy Chronic diastolic heart failure Aneurysm of ascending aorta without rupture Essential hypertension Unspecified essential hypertension Mixed hyperlipidemia Obstructive sleep apnea Obstructive sleep apnea (adult) (pediatric) Never smoked any substance BMI 40.0-44.9, adult (Multi) High risk medication use Hyperlipidemia, unspecified hyperlipidemia type Atypical atrial flutter Morbid obesity (Multi) Morbid obesity Other forms of systemic lupus erythematosus, unspecified organ involvement status (Multi) documented in this encounter [facility] Work Phone: Evaluation note* Diagnosis Acute right ankle pain- Primary Pedal edema Edema [facility]* Diagnosis Preop examination- Primary Preoperative examination, unspecified Other ulcerative colitis without complication (HCC) Atrial fibrillation, unspecified type (HCC) Essential hypertension Unspecified essential hypertension Sleep apnea, unspecified type Membranous glomerulonephritis Nephritis and nephropathy, not specified as acute or chronic, with lesion of membranous glomerulonephritis Systemic lupus erythematosus, unspecified SLE type, unspecified organ involvement status (HCC) Edema, unspecified type Obesity, Class III, BMI >= 40 Morbid obesity Pre-op evaluation- Primary Preoperative examination, unspecified Ascending [...] Class III, BMI >= 40 Morbid obesity Pain in right foot- Primary Pain in limb documented in this encounter [facility] note* Diagnosis Preop examination- Primary Preoperative examination, unspecified Other ulcerative colitis without complication (HCC) Atrial fibrillation, unspecified type (HCC) Essential hypertension Unspecified essential hypertension Sleep apnea, unspecified type Membranous glomerulonephritis Nephritis and nephropathy, not specified as acute or chronic, with lesion of membranous glomerulonephritis Systemic lupus erythematosus, unspecified SLE type, unspecified organ involvement status (HCC) Edema, unspecified type Obesity, Class III, BMI >= 40 Morbid obesity Pre-op evaluation- Primary Preoperative examination, unspecified Ascending [...] Class III, BMI >= 40 Morbid obesity Sprain of right foot, initial encounter- Primary Closed nondisplaced fracture of navicular bone of right foot, initial encounter Osteoarthritis of midtarsal joint of right foot documented in this encounter [facility] note* Diagnosis Preop examination- Primary Preoperative examination, unspecified Other ulcerative colitis without complication (HCC) Atrial fibrillation, unspecified type (HCC) Essential hypertension Unspecified essential hypertension Sleep apnea, unspecified type Membranous glomerulonephritis Nephritis and nephropathy, not specified as acute or chronic, with lesion of membranous glomerulonephritis Systemic lupus erythematosus, unspecified SLE type, unspecified organ involvement status (HCC) Edema, unspecified type Obesity, Class III, BMI >= 40 Morbid obesity Pre-op evaluation- Primary Preoperative examination, unspecified Ascending [...] Class III, BMI >= 40 Morbid obesity Pain in right foot Pain in limb [facility] [place] [facility] Diagnosis Preop examination- Primary Preoperative examination, unspecified Other ulcerative colitis without complication (HCC) Atrial fibrillation, unspecified type (HCC) Essential hypertension Unspecified essential hypertension Sleep apnea, unspecified type Membranous glomerulonephritis Nephritis and nephropathy, not specified as acute or chronic, with lesion of membranous glomerulonephritis Systemic lupus erythematosus, unspecified SLE type, unspecified organ involvement status (HCC) Edema, unspecified type Obesity, Class III, BMI >= 40 Morbid obesity Pre-op evaluation- Primary Preoperative examination, unspecified Ascending [...] Class III, BMI >= 40 Morbid obesity Chronic diastolic congestive heart failure (HCC)- Primary Chronic diastolic heart failure Pulmonary hypertension (HCC) Other chronic pulmonary heart diseases Obstructive sleep apnea syndrome Obstructive sleep apnea (adult) (pediatric) Obesity, Class III, BMI >= 40 Morbid obesity [facility] [place] [facility] Diagnosis Intertrigo- Primary Other specified erythematous condition Essential hypertension Unspecified essential hypertension Closed nondisplaced fracture of navicular bone of right foot with routine healing, subsequent encounter Paroxysmal atrial fibrillation (CMS-HCC) Atrial fibrillation Obesity, morbid ([facility]-HCC) Morbid obesity Chronic depression [facility] Preop examination- Primary Preoperative examination, unspecified Other ulcerative colitis without complication (HCC) Atrial fibrillation, unspecified type (HCC) Essential hypertension Unspecified essential hypertension Sleep apnea, unspecified type Membranous glomerulonephritis Nephritis and nephropathy, not specified as acute or chronic, with lesion of membranous glomerulonephritis Systemic lupus erythematosus, unspecified SLE type, unspecified organ involvement status (HCC) Edema, unspecified type Obesity, Class III, BMI >= 40 Morbid obesity Pre-op evaluation- Primary Preoperative examination, unspecified Ascending [...] Class III, BMI >= 40 Morbid obesity Left-sided epistaxis- Primary Epistaxis halfway (current) use of anticoagulants Long-term (current) use of anticoagulants documented in this encounter [facility] note* Diagnosis Preop examination- Primary Preoperative examination, unspecified Other ulcerative colitis without complication (HCC) Atrial fibrillation, unspecified type (HCC) Essential hypertension Unspecified essential hypertension Sleep apnea, unspecified type Membranous glomerulonephritis Nephritis and nephropathy, not specified as acute or chronic, with lesion of membranous glomerulonephritis Systemic lupus erythematosus, unspecified SLE type, unspecified organ involvement status (HCC) Edema, unspecified type Obesity, Class III, BMI >= 40 Morbid obesity Pre-op evaluation- Primary Preoperative examination, unspecified Ascending [...] Class III, BMI >= 40 Morbid obesity Closed displaced fracture of navicular bone of right foot with delayed healing, subsequent encounter- Primary documented in this encounter [facility] note* Diagnosis Preop examination- Primary Preoperative examination, unspecified Other ulcerative colitis without complication (HCC) Atrial fibrillation, unspecified type (HCC) Essential hypertension Unspecified essential hypertension Sleep apnea, unspecified type Membranous glomerulonephritis Nephritis and nephropathy, not specified as acute or chronic, with lesion of membranous glomerulonephritis Systemic lupus erythematosus, unspecified SLE type, unspecified organ involvement status (HCC) Edema, unspecified type Obesity, Class III, BMI >= 40 Morbid obesity Pre-op evaluation- Primary Preoperative examination, unspecified Ascending [...] Class III, BMI >= 40 Morbid obesity Sprain of right foot, initial encounter Closed nondisplaced fracture of navicular bone of right foot, initial encounter Osteoarthritis of midtarsal joint of right foot documented in this encounter [facility] note* Diagnosis Preop examination- Primary Preoperative examination, unspecified Other ulcerative colitis without complication (HCC) Atrial fibrillation, unspecified type (HCC) Essential hypertension Unspecified essential hypertension Sleep apnea, unspecified type Membranous glomerulonephritis Nephritis and nephropathy, not specified as acute or chronic, with lesion of membranous glomerulonephritis Systemic lupus erythematosus, unspecified SLE type, unspecified organ involvement status (HCC) Edema, unspecified type Obesity, Class III, BMI >= 40 Morbid obesity Pre-op evaluation- Primary Preoperative examination, unspecified Ascending [...] Class III, BMI >= 40 Morbid obesity Closed fracture of left foot, initial encounter- Primary documented in this encounter [facility] note* Diagnosis Preop examination- Primary Preoperative examination, unspecified Other ulcerative colitis without complication (HCC) Atrial fibrillation, unspecified type (HCC) Essential hypertension Unspecified essential hypertension Sleep apnea, unspecified type Membranous glomerulonephritis Nephritis and nephropathy, not specified as acute or chronic, with lesion of membranous glomerulonephritis Systemic lupus erythematosus, unspecified SLE type, unspecified organ involvement status (HCC) Edema, unspecified type Obesity, Class III, BMI >= 40 Morbid obesity Pre-op evaluation- Primary Preoperative examination, unspecified Ascending [...] Class III, BMI >= 40 Morbid obesity Left-sided epistaxis- Primary Epistaxis Nasal vestibulitis Other diseases of nasal cavity and sinuses halfway (current) use of anticoagulants Long-term (current) use of anticoagulants documented in this encounter [facility] note* Diagnosis Preop examination- Primary Preoperative examination, unspecified Other ulcerative colitis without complication (HCC) Atrial fibrillation, unspecified type (HCC) Essential hypertension Unspecified essential hypertension Sleep apnea, unspecified type Membranous glomerulonephritis Nephritis and nephropathy, not specified as acute or chronic, with lesion of membranous glomerulonephritis Systemic lupus erythematosus, unspecified SLE type, unspecified organ involvement status (HCC) Edema, unspecified type Obesity, Class III, BMI >= 40 Morbid obesity Pre-op evaluation- Primary Preoperative examination, unspecified Ascending [...] Class III, BMI >= 40 Morbid obesity Systemic lupus erythematosus, unspecified SLE type, unspecified organ involvement status (HCC)- Primary documented in this encounter [facility] note* Diagnosis Pre-operative clearance- Primary Unspecified pre-operative examination BMI 40.0-44.9, adult (Multi) Paroxysmal atrial fibrillation (Multi) Atrial fibrillation [employer] current use of anticoagulant therapy Deep vein thrombosis (DVT) of upper extremity, unspecified chronicity, unspecified laterality, unspecified vein Presence of Watchman left atrial appendage closure device documented in this encounter [facility] Work Phone: Evaluation note* Diagnosis Preop examination- Primary Preoperative examination, unspecified Other ulcerative colitis without complication (HCC) Atrial fibrillation, unspecified type (HCC) Essential hypertension Unspecified essential hypertension Sleep apnea, unspecified type Membranous glomerulonephritis Nephritis and nephropathy, not specified as acute or chronic, with lesion of membranous glomerulonephritis Systemic lupus erythematosus, unspecified SLE type, unspecified organ involvement status (HCC) Edema, unspecified type Obesity, Class III, BMI >= 40 Morbid obesity Pre-op evaluation- Primary Preoperative examination, unspecified Ascending [...] Class III, BMI >= 40 Morbid obesity Pain in left foot- Primary Pain in limb Closed fracture of left foot, initial encounter Pain in right foot Pain in limb [facility] [place] [facility] Diagnosis Preop examination- Primary Preoperative examination, unspecified Other ulcerative colitis without complication (HCC) Atrial fibrillation, unspecified type (HCC) Essential hypertension Unspecified essential hypertension Sleep apnea, unspecified type Membranous glomerulonephritis Nephritis and nephropathy, not specified as acute or chronic, with lesion of membranous glomerulonephritis Systemic lupus erythematosus, unspecified SLE type, unspecified organ involvement status (HCC) Edema, unspecified type Obesity, Class III, BMI >= 40 Morbid obesity Pre-op evaluation- Primary Preoperative examination, unspecified Ascending [...] Class III, BMI >= 40 Morbid obesity Closed fracture of left foot, initial encounter DJD (degenerative joint disease), ankle and foot, right documented in this encounter [facility] note* Diagnosis Preop examination- Primary Preoperative examination, unspecified Other ulcerative colitis without complication (HCC) Atrial fibrillation, unspecified type (HCC) Essential hypertension Unspecified essential hypertension Sleep apnea, unspecified type Membranous glomerulonephritis Nephritis and nephropathy, not specified as acute or chronic, with lesion of membranous glomerulonephritis Systemic lupus erythematosus, unspecified SLE type, unspecified organ involvement status (HCC) Edema, unspecified type Obesity, Class III, BMI >= 40 Morbid obesity Pre-op evaluation- Primary Preoperative examination, unspecified Ascending [...] Class III, BMI >= 40 Morbid obesity Charcot arthropathy- Primary Disorder of bone, unspecified documented in this encounter [facility] note* Diagnosis Preop examination- Primary Preoperative examination, unspecified Other ulcerative colitis without complication (HCC) Atrial fibrillation, unspecified type (HCC) Essential hypertension Unspecified essential hypertension Sleep apnea, unspecified type Membranous glomerulonephritis Nephritis and nephropathy, not specified as acute or chronic, with lesion of membranous glomerulonephritis Systemic lupus erythematosus, unspecified SLE type, unspecified organ involvement status (HCC) Edema, unspecified type Obesity, Class III, BMI >= 40 Morbid obesity Pre-op evaluation- Primary Preoperative examination, unspecified Ascending [...] Class III, BMI >= 40 Morbid obesity Arthritis, neuropathic- Primary Tabes dorsalis Bone disease Disorder of bone and cartilage, unspecified Arthritis, neuropathic [place]es [place] Bone disease Disorder of bone and cartilage, unspecified documented in this encounter [facility] note* Diagnosis Preop examination- Primary Preoperative examination, unspecified Other ulcerative colitis without complication (HCC) Atrial fibrillation, unspecified type (HCC) Essential hypertension Unspecified essential hypertension Sleep apnea, unspecified type Membranous glomerulonephritis Nephritis and nephropathy, not specified as acute or chronic, with lesion of membranous glomerulonephritis Systemic lupus erythematosus, unspecified SLE type, unspecified organ involvement status (HCC) Edema, unspecified type Obesity, Class III, BMI >= 40 Morbid obesity Pre-op evaluation- Primary Preoperative examination, unspecified Ascending [...] III, BMI >= 40 Morbid obesity Primary osteoarthritis of left knee- Primary Primary localized osteoarthrosis, lower leg Arthritis, neuropathic [place]es dors[place] Bone disease Disorder of bone and cartilage, unspecified documented in this encounter [facility] note* Diagnosis Preop examination- Primary Preoperative examination, unspecified Other ulcerative colitis without complication (HCC) Atrial fibrillation, unspecified type (HCC) Essential hypertension Unspecified essential hypertension Sleep apnea, unspecified type Membranous glomerulonephritis Nephritis and nephropathy, not specified as acute or chronic, with lesion of membranous glomerulonephritis Systemic lupus erythematosus, unspecified SLE type, unspecified organ involvement status (HCC) Edema, unspecified type Obesity, Class III, BMI >= 40 Morbid obesity Pre-op evaluation- Primary Preoperative examination, unspecified Ascending [...] Class III, BMI >= 40 Morbid obesity Pre-op examination- Primary Preoperative examination, unspecified History of DVT (deep vein thrombosis) Personal history of venous thrombosis and embolism Essential hypertension Unspecified essential hypertension Mixed hyperlipidemia Paroxysmal atrial fibrillation (HCC) Atrial fibrillation Pulmonary hypertension (HCC) Other chronic pulmonary heart diseases Ascending aortic aneurysm, unspecified whether ruptured Chronic diastolic congestive heart failure (HCC) Chronic diastolic heart failure Obstructive sleep apnea syndrome Obstructive sleep apnea (adult) (pediatric) Stage 3 chronic kidney disease, unspecified whether stage 3a or 3b CKD (HCC) Acquired hypothyroidism Unspecified hypothyroidism Hyperparathyroid (HCC) Anemia, unspecified type Systemic lupus erythematosus, unspecified SLE type, unspecified organ involvement status ([facility]) Obesity, Class III, BMI >= 40 Morbid obesity Arthritis, neuropathic Tabes dors[place] Bone disease Disorder of bone and cartilage, unspecified * Assessment & Plan Note - Beverly Glass APRN.CNP - 03/20/2025 9:38 AM EDT Associated Problem(s): History of DVT (deep vein thrombosis) Assessment: currently anticoagulated with eliquis, managed by cardiology * Assessment & Plan Note - Beverly Glass APRN.CNP - 03/20/2025 9:37 AM EDT Associated Problem(s): Obesity, Class III, BMI >= 40 Assessment: Body mass index is 41.43 kg/m . * Assessment & Plan Note - Beverly Glass APRN.CNP - 03/20/2025 9:37 AM EDT Associated Problem(s): SLE (systemic lupus erythematosus) ([facility]) Assessment: in remission on meds, follows with rheumatology * Assessment & Plan Note - Beverly Glass APRN.CNP - 03/20/2025 9:37 AM EDT Associated Problem(s): Anemia Assessment: Stable. Denies bleeding. Hemoglobin (g/dL) Date Value 11/16/2024 15.0 05/20/2024 13.8 12/28/2023 13.8 05/16/2021 14.0 03/25/2021 15.0 12/21/2020 9.6 * Assessment & Plan Note - Beverly Glass APRN.CNP - 03/20/2025 9:36 AM EDT Associated Problem(s): Hyperparathyroid (HCC) Assessment: Calcium, Total Date Value Ref Range Status 11/16/2024 9.6 8.5 - 10.2 mg/dL Final * Assessment & Plan Note - Beverly Glass APRN.CNP - 03/20/2025 9:36 AM EDT Associated Problem(s): Hypothyroidism Assessment: stable with current medication regimen * Assessment & Plan Note - Beverly Glass APRN.CNP - 03/20/2025 9:36 AM EDT Associated Problem(s): Stage 3 chronic kidney disease (HCC) Assessment: Stable, asymptomatic BUN Date Value Ref Range Status 11/16/2024 15 7 - 21 mg/dL Final 08/11/2024 24 (H) 7 - 21 mg/dL Final 06/13/2024 20 7 - 21 mg/dL Final Creatinine Date Value Ref Range Status 11/16/2024 1.04 (H) 0.58 - 0.96 mg/dL Final 08/11/2024 1.03 (H) 0.58 - 0.96 mg/dL Final 06/13/2024 1.04 (H) 0.58 - 0.96 mg/dL Final * Assessment & Plan Note - Beverly Glass APRN.CNP - 03/20/2025 9:36 AM EDT Associated Problem(s): Sleep apnea Assessment: cannot tolerate CPAP * Assessment & Plan Note - Beverly Glass APRN.CNP - 03/20/2025 9:35 AM EDT Associated Problem(s): Chronic congestive heart failure (HCC) Assessment: Appears euvolemic and well compensated today. EF 55-60% on PHYLLIS 09/19/24 Follows with cardiology, per Abisai Barraza () on 01/27/25: According to ACC/AHA guidelines, a patient with recent favorable cardiovascular testing without change in symptoms may proceed to operating room without additional ischemic evaluation. Patient with functional capacity right at 4 METS with only minor clinical markers proceeding with intermediate risk surgery-no need for ischemic evaluation. Plan: At this time, no prohibitive cardiovascular risk to proceed with much-needed surgical procedure. She may interrupt DOAC 48 hours prior to procedure, resume once hemostasis obtained. Abisai Barraza MSN, [employer] PROFESSOR-RESPIRATORY CLINICIAN, PMHNP-BC (Our [facility] office later clarified that patient may hold eliquis for 72 hours - TE 03/03/25) * Assessment & Plan Note - Beverly Glass APRN.CNP - 03/20/2025 9:33 AM EDT Associated Problem(s): Thoracic ascending aortic aneurysm Assessment: stable, follows regularly with imaging PHYLLIS 09/19/24 shows: Mild aortic root dilatation. The aortic root is 4.4 cm * Assessment & Plan Note - Beverly Glass APRN.CNP - 03/20/2025 9:33 AM EDT Associated Problem(s): Pulmonary hypertension (HCC) Assessment: stable, asymptomatic RVSP 50-55mmHg on PHYLLIS 09/19/24 * Assessment & Plan Note - Beverly Glass APRN.CNP - 03/20/2025 9:31 AM EDT Associated Problem(s): Atrial fibrillation (HCC) Assessment: stable,asymptomatic, RRR today Follows with cardiology, Dr. Conway, Last Office Visit: 12/07/24: Paroxysmal atrial fibrillation, status post radiofrequency ablation with pulmonary vein isolation at [facility] that was done 3 times started in 2019 and ended in 2023 with recurrences whileon amiodarone therapy. Currently anticoagulated with Eliquis and she is also status post watchman'sdevice March 2024. 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 * Assessment & Plan Note - Beverly Glass APRN.CNP - 03/20/2025 9:30 AM EDT Associated Problem(s): Mixed hyperlipidemia Assessment: stable with current medication regimen * Assessment & Plan Note - Beverly Glass APRN.CNP - 03/20/2025 9:30 AM EDT Associated Problem(s): Essential hypertension Assessment: stable and compliant with current medications Last 5 Encounter BP Readings: Date: BP: 03/20/2025 108/73 01/26/2025 103/69 12/22/2024 118/70 12/01/2024 141/78 11/16/2024 136/64 [facility] Preop examination- Primary Preoperative examination, unspecified Other ulcerative colitis without complication (HCC) Atrial fibrillation, unspecified type (HCC) Essential hypertension Unspecified essential hypertension Sleep apnea, unspecified type Membranous glomerulonephritis Nephritis and nephropathy, not specified as acute or chronic, with lesion of membranous glomerulonephritis Systemic lupus erythematosus, unspecified SLE type, unspecified organ involvement status (HCC) Edema, unspecified type Obesity, Class III, BMI >= 40 Morbid obesity Pre-op evaluation- Primary Preoperative examination, unspecified Ascending [...] Class III, BMI >= 40 Morbid obesity Postop check- Primary Follow-up examination, following unspecified surgery History of fusion of talotibial joint and subtalar joint Primary hypertension Unspecified essential hypertension Other hyperlipidemia Pre-op examination- Primary Preoperative examination, unspecified History of DVT (deep vein thrombosis) Personal history of venous thrombosis and embolism Essential hypertension Unspecified essential hypertension Mixed hyperlipidemia Paroxysmal atrial fibrillation (HCC) Atrial fibrillation Pulmonary hypertension (HCC) Other chronic pulmonary heart diseases Ascending aortic aneurysm, unspecified whether ruptured Chronic diastolic congestive heart failure (HCC) Chronic diastolic heart failure Obstructive sleep apnea syndrome Obstructive sleep apnea (adult) (pediatric) Stage 3 chronic kidney disease, unspecified whether stage 3a or 3b CKD (HCC) Acquired hypothyroidism Unspecified hypothyroidism Hyperparathyroid (HCC) Anemia, unspecified type Systemic lupus erythematosus, unspecified SLE type, unspecified organ involvement status (HCC) Obesity, Class III, BMI >= 40 Morbid obesity Charcot arthropathy- Primary [facility] [place] [facility]* Diagnosis Preop examination- Primary Preoperative examination, unspecified Other ulcerative colitis without complication (HCC) Atrial fibrillation, unspecified type (HCC) Essential hypertension Unspecified essential hypertension Sleep apnea, unspecified type Membranous glomerulonephritis Nephritis and nephropathy, not specified as acute or chronic, with lesion of membranous glomerulonephritis Systemic lupus erythematosus, unspecified SLE type, unspecified organ involvement status (HCC) Edema, unspecified type Obesity, Class III, BMI >= 40 Morbid obesity Pre-op evaluation- Primary Preoperative examination, unspecified Ascending [...] Class III, BMI >= 40 Morbid obesity Postop check- Primary Follow-up examination, following unspecified surgery History of fusion of talotibial joint and subtalar joint Primary hypertension Unspecified essential hypertension Other hyperlipidemia Pre-op examination- Primary Preoperative examination, unspecified History of DVT (deep vein thrombosis) Personal history of venous thrombosis and embolism Essential hypertension Unspecified essential hypertension Mixed hyperlipidemia Paroxysmal atrial fibrillation (HCC) Atrial fibrillation Pulmonary hypertension (HCC) Other chronic pulmonary heart diseases Ascending aortic aneurysm, unspecified whether ruptured Chronic diastolic congestive heart failure (HCC) Chronic diastolic heart failure Obstructive sleep apnea syndrome Obstructive sleep apnea (adult) (pediatric) Stage 3 chronic kidney disease, unspecified whether stage 3a or 3b CKD (HCC) Acquired hypothyroidism Unspecified hypothyroidism Hyperparathyroid (HCC) Anemia, unspecified type Systemic lupus erythematosus, unspecified SLE type, unspecified organ involvement status (HCC) Obesity, Class III, BMI >= 40 Morbid obesity Charcot arthropathy- Primary [facility]* Initiate Home Health Time Frame: 1 Day, Location: Determined By Patient Additional Instructions Home Health to manage care: - Full code - PT/OT eval and treat - Routine vital signs - Medication management and education - [facility] Work Phone: InstructionsNot on filedocumented in [...] SPECT/CT PARATHYROID IMAGING W/TOMOGRAPHIC SPECT & CT Monica Booker MD [address] [place] [address] Molecular & Functional Imaging [address] [place] [address] Referral ID Status Reason Start Date Expiration Date Visits Requested Visits Authorized [id number] Authorized Auto-Generat ed Referral 2 07/31/2023 1 1 [facility] for referral (narrative)* Diagnostic Procedure Only (Routine) - Closed Specialty Diagnoses / Procedures Referred By Fariba rowley Referred To Contact MOLECULAR & FUNCTIONAL IMAGING Diagnoses Hyperparathyroidism (HCC) Procedures NM PARATHYROID W SPECT/CT PARATHYROID IMAGING W/TOMOGRAPHIC SPECT & CT Monica Booker MD [address] [place] [address] Molecular & Functional Imaging [address] [place] [address] Referral ID Status Reason Start Date Expiration Date V isits Requested Visits Authorized [id number] Closed Auto-Generate d Referral 07/01/2022 07/31/2023 1 1 [facility] for referral (narrative)* Outpatient Procedure (Routine) - Authorized Specialty Diagnoses / Procedures Referred By Contac t Referred To [facility] Diagnoses IBD (inflammatory bowel disease) Procedures COLONOSCOPY DIAGNOSTIC COLONOSCOPY FLX DX W/COLLJ SPEC WHEN Dione Starr MD [address] [place] [address] [address] Referral ID Status Reason Start Date Expiration Date Visits Requested Visits Authorized [id number] Authorized Auto-Generat ed Referral 2023 02/19/2024 1 1 [facility] for referral (narrative)* Outpatient Procedure (Routine) - Closed Specialty Diagnoses / Procedures Referred By Contac t Referred To [facility] Diagnoses Diarrhea, unspecified type Epigastric pain Procedures EGD DIAGNOSTIC ESOPHAGOGASTRODUODENOSC OPY TRANSORAL DIAGNOSTIC Dione Frances MD [address] [place] [address] [address] Referral ID Status Reason Start Date Expiration Date V isits Requested Visits Authorized [id number] Closed Auto-Generate d Referral 09/10/2021 09/10/2022 1 1 * Outpatient Procedure (Routine) - Closed Specialty Diagnoses / Procedures Referred By Contac t Referred To [facility] Diagnoses Diarrhea, unspecified type Epigastric pain Procedures COLONOSCOPY DIAGNOSTIC COLONOSCOPY FLX DX W/COLLJ SPEC WHEN Dione Starr MD [address] [place] [address] [address] Referral ID Status Reason Start Date Expiration Date V isits Requested Visits Authorized [id number] Closed Auto-Generate d Referral 09/10/2021 09/10/2022 1 1 [facility] for referral (narrative)* Outpatient Procedure (Routine) - Closed Specialty Diagnoses / Procedures Referred By Contac t Referred To Contact [facility] Diagnoses IBD (inflammatory bowel disease) Procedures COLONOSCOPY DIAGNOSTIC COLONOSCOPY FLX DX W/COLLJ SPEC WHEN Dione Starr MD [address] [facility] [place] [address] [facility] [address] [place] [address] Referral ID Status Reason Start Date Expiration Date V isits Requested Visits Authorized [id number] Closed Auto-Generate d Referral 2023 02/19/2024 1 1 [facility] for referral (narrative)* Diagnostic Procedure Only (Routine) - Pending Review Specialty Diagnoses / Procedures Referred By Contac t Referred To Contact XR IMAGING Diagnoses Pain in left foot Procedures XR FOOT GENERAL 3V AP/LAT/OBL LEFT RADEX FOOT COMPLETE MINIMUM 3 VIEWS Beverly Franco, DPM [address] [place] [address] Xr Imaging [facility] Referral ID Status Reason Start Date Expiration Date Visits Requested Visits Authorized [id number] Pending Review Auto-Generat ed Referral 3 07/31/2024 1 1 [facility] for referral (narrative)* Diagnostic Procedure Only (Routine) - Pending Review Specialty Diagnoses / Procedures Referred By Contac t Referred To Contact XR IMAGING Diagnoses Osteopenia, unspecified location S/P parathyroidectomy 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 Vitamin D deficiency disease Procedures DXA-AXIAL SKELETON WITH VFA DXA BONE DENSITY STUDY AXIAL SKELETON Julia Ann PA-C [address] [address] [place] [address] Referral ID Status Reason Start Date Expiration Date Visits Requested Visits Authorized [id number] Pending Review Auto-Generat ed Referral 10/13/2023 11/11/2024 1 1 [facility] for referral (narrative)* Diagnostic Procedure Only (Routine) - Authorized Specialty Diagnoses / Procedures Referred By Contac t Referred To Contact US IMAGING Diagnoses Membranous glomerulonephritis Procedures US KIDNEY/BLADDER US RETROPERITONEAL REAL TIME W/IMAGE COMPLETE Radu Salazar MD [address] [place] [address] Us [facility] [place] [address] Referral ID Status Reason Start Date Expiration Date Visits Requested Visits Authorized [id number] Authorized Auto-Generat ed Referral 12/29/2023 01/27/2025 1 1 T [facility] for referral (narrative)* Diagnostic Procedure Only (Routine) - Closed Specialty Diagnoses / Procedures Referred By Contac t Referred To Contact XR IMAGING Diagnoses Osteopenia of multiple sites S/P parathyroidectomy 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 Acute pain of left knee Procedures XR KNEE GENERAL 4V AP BOTH/PA BOTH/LAT/MERC LEFT RADIOLOGIC EXAM KNEE COMPLETE 4/MORE VIEWS Julia Ann PA-C [address] [place] [address] X[facility] [place] [address] Referral ID Status Reason Start Date Expiration Date V isits Requested Visits Authorized [id number] Closed Auto-Generate d Referral 03/15/2024 04/14/2025 1 1 [facility] for referral (narrative)* Diagnostic Procedure Only (Routine) - Closed Specialty Diagnoses / Procedures Referred By Contac t Referred To Contact XR IMAGING Diagnoses Osteopenia of multiple sites S/P parathyroidectomy 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 Acute pain of left knee Procedures XR KNEE GENERAL 4V AP BOTH/PA BOTH/LAT/MERC LEFT RADIOLOGIC EXAM KNEE COMPLETE 4/MORE VIEWS Julia Ann PA-C [address] [place] [address] [place] [address] Referral ID Status Reason Start Date Expiration Date V isits Requested Visits Authorized [id number] Closed Auto-Generate d Referral 03/15/2024 04/14/2025 1 1 [facility] for referral (narrative)* Diagnostic Procedure Only (Routine) - Closed Specialty Diagnoses / Procedures Referred By Contac t Referred To Contact XR IMAGING Diagnoses Osteopenia, unspecified location S/P parathyroidectomy 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 Vitamin D deficiency disease Procedures DXA-AXIAL SKELETON WITH VFA DXA BONE DENSITY STUDY AXIAL SKELETON Julia Ann PA-C [address] [place] [id number] Xr Imaging [facility] Referral ID Status Reason Start Date Expiration Date V isits Requested Visits Authorized [id number] Closed Auto-Generate d Referral 10/13/2023 11/11/2024 1 1 [facility] for referral (narrative)* Diagnostic Procedure Only (Routine) - Closed Specialty Diagnoses / Procedures Referred By Contac t Referred To Contact XR IMAGING Diagnoses Left knee pain, unspecified chronicity Procedures XR KNEE SPECIFY 1V LEFT RADIOLOGIC EXAMINATION KNEE 1/2 VIEWS Alfredo Norwood PA-C [address] [place] [address] [place] [address] Referral ID Status Reason Start Date Expiration Date V isits Requested Visits Authorized [id number] Closed Auto-Generate d Referral 05/18/2024 06/16/2025 1 1 [facility] for referral (narrative)* Diagnostic Procedure Only (Routine) - Closed Specialty Diagnoses / Procedures Referred By Contac t Referred To Contact XR IMAGING Diagnoses Left knee pain, unspecified chronicity Procedures XR KNEE SPECIFY 1V LEFT RADIOLOGIC EXAMINATION KNEE 1/2 VIEWS Alfredo Norwood PA-C [address] [facility] [place] [address] [facility] [address] Referral ID Status Reason Start Date Expiration Date V isits Requested Visits Authorized [id number] Closed Auto-Generate d Referral 05/18/2024 06/16/2025 1 1 [facility] for visit Narrative* Diagnostic Procedure Only (Routine) - Closed Specialty Diagnoses / Procedures Referred By Contac t Referred To Contact MOLECULAR & FUNCTIONAL IMAGING Diagnoses Hyperparathyroidism (HCC) Procedures NM PARATHYROID W SPECT/CT PARATHYROID IMAGING W/TOMOGRAPHIC SPECT & CT Monica Booker MD [address] [place] [address] [facility] [address] [place] [address] Referral ID Status Reason Start Date Expiration Date V isits Requested Visits Authorized [id number] Closed Auto-Generate d Referral 07/01/2022 07/31/2023 1 1 [facility] for visit Narrative* Outpatient Procedure (Routine) - Closed Specialty Diagnoses / Procedures Referred By Contac t Referred To Contact [facility] Diagnoses Diarrhea, unspecified type Epigastric pain Procedures EGD DIAGNOSTIC ESOPHAGOGASTRODUODENOSC OPY TRANSORAL DIAGNOSTIC Dione Frances MD [address] [facility] [place] [address] [facility] [address] [place] [address] Referral ID Status Reason Start Date Expiration Date V isits Requested Visits Authorized [id number] Closed Auto-Generate d Referral 09/10/2021 09/10/2022 1 1 [facility] for visit Narrative* Outpatient Procedure (Routine) - Closed Specialty Diagnoses / Procedures Referred By Contac t Referred To Contact [facility] Diagnoses IBD (inflammatory bowel disease) Procedures COLONOSCOPY DIAGNOSTIC COLONOSCOPY FLX DX W/COLLJ SPEC WHEN PFRMDione Camacho MD [address] [facility] [place] [address] [facility] [address] [place] [address] Referral ID Status Reason Start Date Expiration Date V isits Requested Visits Authorized [id number] Closed Auto-Generate d Referral 2023 02/19/2024 1 1 [facility] for visit Narrative* Diagnostic Procedure Only (Routine) - Closed Specialty Diagnoses / Procedures Referred By Contac t Referred To Contact XR IMAGING Diagnoses Osteopenia, unspecified location S/P parathyroidectomy 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 Vitamin D deficiency disease Procedures DXA-AXIAL SKELETON WITH VFA DXA BONE DENSITY STUDY AXIAL SKELETON Julia Ann PA-C [address] [place] [address] X[facility] [place] [address] Referral ID Status Reason Start Date Expiration Date V isits Requested Visits Authorized [id number] Closed Auto-Generate d Referral 10/13/2023 11/11/2024 1 1 [facility] for visit Narrative* Auth/Cert Specialty Diagnoses / Procedures Referred By Augustoac t Referred To Contact Diagnoses Paroxysmal atrial fibrillation (Multi) Epistaxis Anemia, unspecified type Preop testing Paroxysmal atrial fibrillation (Multi) [I48.0] Epistaxis [R04.0] Anemia, unspecified type [D64.9] Preop testing [Z01.818] Procedures RI PERQ CLSR TCAT L ATR APNDGE W/ENDOCARDIAL IMPLNT Left [place] [address] [place] [address] [facility] [id number] [facility] [address] [address] Referral ID Status Reason Start Date Expiration Date Visits Re quested Visits Authorized [id number] 1 1 [facility] Work Phone: [employer] for visit Narrative* Imaging (Routine) - Pending Review Specialty Diagnoses / Procedures [facility] To Contact Radiology Diagnoses Paroxysmal atrial fibrillation (Multi) Epistaxis Anemia, unspecified type Preop testing Procedures [place] [address] [place] [address] Phone: tel: fax: Referral ID Status Reason Start Date Expiration Date Visits Requested Visits Authorized [id number] Pending Review Perform Procedure 03/21/2024 03/21/2025 1 1 [facility] Work Phone: Reason for visit Narrative* CV Imaging (Routine) - Authorized Specialty Diagnoses / Procedures Referred By Contac t Referred To Contact Cardiology Diagnoses Chronic diastolic heart failure Shortness of breath Procedures Transthoracic Echo Complete RI ECHO TTHRC R-T 2D W/WOM-MODE COMPL SPEC&COLR D Yuriy Conway MD [address] [facility] 2, [facility] [address] [place] [address] Phone: tel: fax: Referral ID Status Reason Start Date Expiration Date Visits Requested Visits Authorized [id number] Authorized Perform Procedure 4 08/05/2025 1 1 [facility] Work Phone: [employer] for visit Narrative* MRI/CT (Routine) - Closed Specialty Diagnoses / Procedures Referred By Fariba t Referred To Contact CT IMAGING Diagnoses Closed fracture of left foot, initial encounter Procedures CT FOOT WO IVCON LEFT CT LOWER EXTREMITY W/[place] [address] [place] [address] Phone: tel: fax: [place] [address] Referral ID Status Reason Start Date Expiration Date V isits Requested Visits Authorized [id number] Closed Auto-Generate d Referral 01/23/2025 02/22/2026 1 1 [facility] Summary Purpose Family History Relationship Condition Age [...] of hypertensi on: Mother, Father(V17.49, Z82.49) Status:Active Relationship Condition Age at Onset Recorded Date/T myrtle mother Malignant neoplasm of colon Unknown Hypertension Unknown sister Hypertension Unknown father Hypertension Unknown Advance Directives Documents on File Type Date Recorded 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 Advance Directive(s) Advance Directive(s) 10/25/2021 [...] Documents on File Type Date Recorded 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 Advance Directive(s) Advance Directive(s) 10/25/2021 [...] 60 mg, INTRAVENOUS, ONCE, 1 dose, On 12/09/21 at 1130 Given 12/09/2021 12:15 PM EDT [...] 60 mg, INTRAVENOUS, ONCE, 1 dose, On Thu03/13/22 at 1200 [...] 1,000 mg, ORAL, ONCE, 1 dose, On [facility] 06/12/22 at 1300 Given 06/12/2022 12:50 PM EDT 1,000 mg belimumab 1,000 mg in NaCl 0.9% 250 mL (BENLYSTA) 1,000 mg, INTRAVENOUS, at 250 mL/hr, Administer over 60 Minutes, ONCE, 1 dose, On [facility] 06/12/22 at 1300, 8 hour expiration time: --- Protect From Light --- Total Volume: 250 mL Protect From Light New Bag/Syringe/Bottle 06/12/2022 1:28 PM EDT 1,000 mg 125 mL/hr methylPREDNISolone sod succinate(PF) 60 mg injection (SOLU-Medrol) 60 mg, INTRAVENOUS, ONCE, 1 dose, On [facility] 06/12/22 at 1300 Given 06/12/2022 1:00 [...] Date Dose Rate Site benzocaine 20% 1 [place] (TOPEX) 1 [place], TOPICAL, DIRECTED, Starting on Thu09/12/21 at 0800, Until Thu09/12/21 at 1159, DOSING DIRECTED BY PHYSICIAN FOR PROCEDURAL SEDATION ONLY - Pharmaceutical Waste: Aerosol -, Intraprocedure Given 09/12/2021 7:43 AM EST 1 [place] NaCl 0.9% iv infusion 30 mL/hr, INTRAVENOUS, [...] HLD (hyperlipidemia) HTN (hypertension) Chief Complaint afib Chief Complaint afib Atrial Fibrillation Chief Complaint Admit Date i48.0 z79.899 August 29, 2024 9 :04am i48.0 z79.899 August 29, 2024 3 :56pm Chief Complaint Admit Date i48.0 z79.899 August 29, 2024 9 :04am i48.0 z79.899 August 29, 2024 3 :56pm R93.1 I72.20 September 15, 2024 1 1:44am Chief Complaint Admit Date i48.0 z79.899 August 29, 2024 9 :04am i48.0 z79.899 August 29, 2024 3 :56pm R93.1 I72.20 September 15, 2024 1 1:44am Aortic Valve Stenosis September 19, 2024 7:34am Reason for Referral Specialty Diagnoses / Procedures Referred By Fariba rowley Referred To Contact Diagnoses High risk medication use Systemic lupus erythematosus, unspecified SLE type, unspecified organ involvement status (HCC) Evelin Abel MD [address] [place] [address] Referral ID Status Reason Start Date Expiration Date Visits Re quested Visits Authorized [id number] Closed 1 1 Specialty Diagnoses / Procedures Referred By Fariba rowley Referred To Contact MR IMAGING Diagnoses Hypertrophic obstructive cardiomyopathy (HCC) Procedures MRI CARDIAC VELOCITY FLOW MAP CARDIAC MRI FOR VELOCITY FLOW MAPPING Mann Ramos MD [address] [place] [address] Mr Imaging Referral ID Status Reason Start Date Expiration Date Visits Requested Visits Authorized [id number] Pending Review Auto-Generat ed Referral 03/27/2022 04/26/2023 1 1 Specialty Diagnoses / Procedures Referred By Fariba rowley Referred To Contact MR IMAGING Diagnoses Hypertrophic obstructive cardiomyopathy (HCC) Procedures MRI CARDIAC MORPH FUNC WO/W IVCON CARDIAC MRI W/WO CONTRAST & FURTHER SEQ Mann Ramos MD [address] [place] [address] Mr Imaging Referral ID Status Reason Start Date Expiration Date Visits Requested Visits Authorized [id number] Pending Review Auto-Generat ed Referral 03/27/2022 04/26/2023 1 1 Specialty Diagnoses / Procedures Referred By Contac t Referred To Contact [facility] Diagnoses Hypertrophic obstructive cardiomyopathy (HCC) Procedures ECHO ECHO TTHRC R-T 2D W/WOM-MODE COMPL SPEC&COLR D Mann Ramos MD [address] [place] [address] [address] Referral ID Status Reason Start Date Expiration Date Visits Requested Visits Authorized [id number] Pending Review Auto-Generat ed Referral 03/27/2022 03/27/2023 1 1 Specialty Diagnoses / Procedures Referred By Contac t Referred To Contact [facility] Diagnoses Hypertrophic obstructive cardiomyopathy (HCC) Procedures ECG COMPLETE ECG ROUTINE ECG W/LEAST 12 LDS W/I&R Mann Ramos MD [address] [place] [address] [address] Referral ID Status Reason Start Date Expiration Date Visits Requested Visits Authorized [id number] Pending Review Auto-Generat ed Referral 03/27/2022 03/27/2023 1 1 Specialty Diagnoses / Procedures Referred By Contac t Referred To Contact Endocrinology Diagnoses Hypercalcemia Hyperparathyroid (HCC) Procedures CONSULT TO ENDOCRINOLOGY OFFICE/OUTPATIENT [facility] 60-74 MINUTES Julia Peña PA-C [address] [place] [address] Referral ID Status Reason Start Date Expiration Date Visits Requested Visits Authorized [id number] Authorized PCP Requested Referral 05/12/2022 05/12/2023 1 1 Specialty Diagnoses / Procedures Referred By Contac t Referred To Contact Diagnoses Hypercalcemia Hyperparathyroid (HCC) Procedures CONSULT TO ENDOCRINE SURGERY OFFICE/OUTPATIENT [facility] 60-74 MINUTES Lemuel Bejarano V, MD [address] [place] [address] Referral ID Status Reason Start Date Expiration Date Visits Requested Visits Authorized [id number] Authorized PCP Requested Referral 06/11/2023 1 1 Specialty Diagnoses / Procedures Referred By Contac t Referred To Contact Nephrology Diagnoses Chronic kidney disease, unspecified CKD stage Systemic lupus erythematosus, unspecified SLE type, unspecified organ involvement status (HCC) Procedures CONSULT TO NEPHROLOGY OFFICE/OUTPATIENT [facility] 60-74 MINUTES Nadege Murphy DO [address] [place] [address] Referral ID Status Reason Start Date Expiration Date Visits Requested Visits Authorized [id number] Authorized PCP Requested Referral 04/27/2023 04/26/2024 1 1 Specialty Diagnoses / Procedures Referred By Contac t Referred To Contact Cardiology Diagnoses Paroxysmal atrial fibrillation (CMS/HCC) Procedures Cardioversion External Yuriy Conway MD [address] [facility] 2, [address] [address] Referral ID Status Reason Start Date Expiration Date V isits Requested Visits Authorized [id number] Pending Review 09/17/2023 09/16/2024 1 1 Specialty Diagnoses / Procedures Referred By Contac t Referred To Contact Diagnoses Paroxysmal atrial fibrillation (CMS/HCC) Procedures ECG 12 Lead Yuriy Conway MD [address] [place] [address] [address], [address] [place] [address] Referral ID Status Reason Start Date Expiration Date V isits Requested Visits Authorized [id number] Authorized 09/17/2023 09/16/2024 1 1 Specialty Diagnoses / Procedures Referred By Contac t Referred To Contact Cardiology Diagnoses Paroxysmal atrial fibrillation (CMS/HCC) Procedures Follow Up In Cardiology Yuriy Conway MD [address] [facility] 2, [address] [place] [address] Yuriy Conway MD [address] [facility] 2, [address] [place] [address] Referral ID Status Reason Start Date Expiration Date V isits Requested Visits Authorized [id number] Authorized 09/17/2023 09/16/2024 1 1 Specialty Diagnoses / Procedures Referred By Contac t Referred To Contact MR IMAGING Diagnoses Pancreatic cyst Procedures MRI 3D POST PROCESSING 3D RENDERING W/INTERP&POSTPROC DIFF WORK STATION Rima Mcallister, AFRICAN HISTORY PROFESSOR.RESPIRATORY CLINICIAN [address] [place] [address] [place] [address] Referral ID Status Reason Start Date Expiration Date Visits Requested Visits Authorized [id number] Pending Review Auto-Generat ed Referral 09/30/2023 10/29/2024 1 1 Specialty Diagnoses / Procedures Referred By Contac t Referred To Contact MR IMAGING Diagnoses Pancreatic cyst Procedures MRI PANC/JEANIE WO/W IVCON MRI ABDOMEN W/O & W/CONTRAST MATERIAL Esvin Rima, AFRICAN HISTORY PROFESSOR.RESPIRATORY CLINICIAN [address] [place] [address] [place] [address] Referral ID Status Reason Start Date Expiration Date Visits Requested Visits Authorized [id number] Pending Review Auto-Generat ed Referral 09/30/2023 10/29/2024 1 1 Referral ID Status Reason Start Date Expiration Date V isits Requested Visits Authorized [id number] Closed Auto-Generate d Referral 09/30/2023 10/29/2024 1 1 Referral ID Status Reason Start Date Expiration Date V isits Requested Visits Authorized [id number] Authorized 10/29/2023 10/28/2024 1 1 Specialty Diagnoses / Procedures Referred By Contac t Referred To Contact Cardiology Diagnoses Paroxysmal atrial fibrillation (CMS/HCC) Yuriy Conway MD [address] [facility] 2, [address] [place] [address] [place] [address] [place] [address] Referral ID Status Reason Start Date Expiration Date Visits Requested Visits Authorized [id number] Authorized Specialty Services Required 10/29/2023 10/28/2024 1 1 Referral ID Status Reason Start Date Expiration Date V isits Requested Visits Authorized [id number] Authorized 10/29/2023 10/28/2024 1 1 Referral ID Status Reason Start Date Expiration Date V isits Requested Visits Authorized [id number] Authorized 10/29/2023 10/28/2024 1 1 Specialty Diagnoses / Procedures Referred By Contac t Referred To Contact Diagnoses Paroxysmal atrial fibrillation (CMS/HCC) Atypical atrial flutter (CMS/HCC) Procedures ECG 12 lead (Clinic Performed) [place] [address] [place] [address] Referral ID Status Reason Start Date Expiration Date V isits Requested Visits Authorized [id number] Authorized 11/16/2023 11/15/2024 1 1 Specialty Diagnoses / Procedures Referred By Contac t Referred To Contact Diagnoses Paroxysmal atrial fibrillation (Multi) Procedures ECG 12 lead (Clinic Performed) Christian Kaur, AFRICAN HISTORY PROFESSOR-JOHNATHAN [address] [place] [address] Referral ID Status Reason Start Date Expiration Date V isits Requested Visits Authorized [id number] Authorized 02/15/2024 02/14/2025 1 1 Specialty Diagnoses / Procedures Referred By Contac t Referred To Contact Radiology Diagnoses Paroxysmal atrial fibrillation (Multi) Epistaxis Anemia, unspecified type Preop testing Procedures [place] [address] [place] [address] Referral ID Status Reason Start Date Expiration Date Visits Requested Visits Authorized [id number] Authorized Perform Procedure 03/21/2024 03/21/2025 1 1 Referral ID Status Reason Start Date Expiration Date V isits Requested Visits Authorized [id number] Authorized 05/16/2024 05/16/2025 1 1 Specialty Diagnoses / Procedures Referred By Contac t Referred To Contact Rehabilitation Diagnoses Localized osteoarthritis of left knee Wojciech Treviño, DO [address] [place] [address] Referral ID Status Reason Start Date Expiration Date Visits Requested Visits Authorized [id number] Pending Review Specialty Services Required 03/30/2024 09/30/2024 1 1 Chief Complaint JESUS WOLF is being seen for an annual follow-up of.* JESUS WOLF is being seen for an annual follow-up of. * Patient is in the office after more than 2 years hiatus [facility]. [facility] is in need for cardiac clearance prior to surgery. The patient has done well in thelast couple of years but was not very happy with the care she was receiving at the [facility]. She had ablation for atrial fibrillation couple years back at [facility] with Dr. Chino with no recurrences. She is not on antiarrhythmic therapy but has been on anticoagulation with Eliquis. She has no indication previous coronary heart disease but never had a stress test or cardiac catheterization. Her last echocardiogram from September 2021 at the [facility] revealed mildly dilated ascending aorta at 4.6 [...] radiofrequency ablation with pulmonary vein isolation at [facility] in 2019. She will continue on Eliquis [...] 8. Systemic Lupus managed by rheumatology at [facility] on multiple medications and stable * 9. [...] years hiatus [facility]. She is in need for cardiac clearance prior to surgery. The patient has done well in thelast couple of years but was not very happy with the care she was receiving at the [facility]. She had ablation for atrial fibrillation couple years back at [facility] with Dr. Chino with no recurrences. She is not on antiarrhythmic therapy but has been on anticoagulation with Eliquis. She has no indication previous coronary heart disease but never had a stress test or cardiac catheterization. Her last echocardiogram from September 2021 at the [facility] revealed mildly dilated ascending aorta at 4.6 [...] radiofrequency ablation with pulmonary vein isolation at [facility] in 2019. She will continue on Eliquis [...] 8. Systemic Lupus managed by rheumatology at [facility] on multiple medications and stable * 9. [...] medication was advised. * Yuriy Conway MD, [facility] * JESUS WOLF is being seen for an annual follow-up of. * Patient is in the office after more than 2 years hiatus where [facility] She is in need for cardiac clearance prior to surgery. The patient has done well in thelast couple of years but was not very happy with the care she was receiving at the [facility]. She had ablation for atrial fibrillation couple years back at [facility] with Dr. Chino with no recurrences. She is not on antiarrhythmic therapy but has been on anticoagulation with Eliquis. She has no indication previous coronary heart disease but never had a stress test or cardiac catheterization. Her last echocardiogram from September 2021 at the [facility] revealed mildly dilated ascending aorta at 4.6 [...] radiofrequency ablation with pulmonary vein isolation at [facility] in 2019. She will continue on Eliquis [...] 8. Systemic Lupus managed by rheumatology at [facility] on multiple medications and stable * 9. [...] medication was advised. * Yuriy Conway MD, [facility] Health Concerns Infection Onset Date Last Indicated Resolved Time C. difficile 12/25/2022 12/25/2022 Additional Source Comments INFORMATION SOURCE (unrecogn ized section and content) DATE CREATED AUTHOR 10/21/2018 [facility] DATE CREATED AUTHOR AUTHOR'S ORGANIZ ATION 04/30/2021 [facility] DATE CREATED AUTHOR AUTHOR'S ORGANIZ ATION 09/10/2021 [facility] DATE CREATED AUTHOR AUTHOR'S ORGANIZ ATION 08/08/2022 [facility] DATE CREATED AUTHOR AUTHOR'S ORGANIZ ATION 09/23/2022 [facility] DATE CREATED AUTHOR AUTHOR'S ORGANIZ ATION 12/18/2022 [facility] DATE CREATED AUTHOR AUTHOR'S ORGANIZ ATION 05/10/2024 [facility] DATE CREATED AUTHOR AUTHOR'S ORGANIZ ATION 05/18/2024 [facility] DATE CREATED AUTHOR AUTHOR'S ORGANIZ ATION 09/03/2024 [facility] DATE CREATED AUTHOR AUTHOR'S ORGANIZ ATION 09/21/2024 [facility] DATE CREATED AUTHOR AUTHOR'S ORGANIZ ATION 09/29/2024 [facility] DATE CREATED AUTHOR AUTHOR'S ORGANIZ ATION 12/30/2024 [facility] DATE CREATED AUTHOR AUTHOR'S ORGANIZ ATION 02/04/2025 [facility] DATE CREATED AUTHOR AUTHOR'S ORGANIZ ATION 03/06/2025 [facility] DATE CREATED AUTHOR AUTHOR'S ORGANIZ ATION 04/06/2025 [facility] DATE CREATED AUTHOR AUTHOR'S ORGANIZ ATION 04/19/2025 [facility] DATE CREATED AUTHOR AUTHOR'S ORGANIZ ATION 04/24/2025 [facility] Source Comments (unrecognize d section and content) In the event this informatio n is protected by the Federal Confidentiality of Alcohol and Drug Abuse Patient Records regulations: The Federal rules restrict any use of the information to criminally investigate or prosecute any alcohol or drug abuse patient.[facility] the event this information is protected by the Federal Confidentiality of Alcohol and Drug Abuse Patient Records regulations: The Federal rules restrict any use of the information to criminally investigate or prosecute any alcohol or drug abuse patient.[facility] the event this information is protected by the Federal Confidentiality of Alcohol and Drug Abuse Patient Records regulations: The Federal rules restrict any use of the information to criminally investigate or prosecute any alcohol or drug abuse patient.[facility]In the event this information is protected by the Federal Confidentiality of Alcohol and Drug Abuse Patient Records regulations: The Federal rules restrict any use of the information to criminally investigate or prosecute any alcohol or drug abuse patient.[facility]In the event this information is protected by the Federal Confidentiality of Alcohol and Drug Abuse Patient Records regulations: The Federal rules restrict any use of the information to criminally investigate or prosecute any alcohol or drug abuse patient.[facility]In the event this information is protected by the Federal Confidentiality of Alcohol and Drug Abuse Patient Records regulations: The Federal rules restrict any use of the information to criminally investigate or prosecute any alcohol or drug abuse patient.[facility]In the event this information is protected by the Federal Confidentiality of Alcohol and Drug Abuse Patient Records regulations: The Federal rules restrict any use of the information to criminally investigate or prosecute any alcohol or drug abuse patient.[facility]In the event this information is protected by the Federal Confidentiality of Alcohol and Drug Abuse Patient Records regulations: The Federal rules restrict any use of the information to criminally investigate or prosecute any alcohol or drug abuse patient.[facility]In the event this information is protected by the Federal Confidentiality of Alcohol and Drug Abuse Patient Records regulations: The Federal rules restrict any use of the information to criminally investigate or prosecute any alcohol or drug abuse patient.[facility] HospitalIn the event this information is protected by the Federal Confidentiality of Alcohol and Drug Abuse Patient Records regulations: The Federal rules restrict any use of the information to criminally investigate or prosecute any alcohol or drug abuse patient.[facility] HospitalIn the event this information is protected by the Federal Confidentiality of Alcohol and Drug Abuse Patient Records regulations: The Federal rules restrict any use of the information to criminally investigate or prosecute any alcohol or drug abuse patient.[facility] HospitalIn the event this information is protected by the Federal Confidentiality of Alcohol and Drug Abuse Patient Records regulations: The Federal rules restrict any use of the information to criminally investigate or prosecute any alcohol or drug abuse patient.[facility] HospitalIn the event this information is protected by the Federal Confidentiality of Alcohol and Drug Abuse Patient Records regulations: The Federal rules restrict any use of the information to criminally investigate or prosecute any alcohol or drug abuse patient.[facility] HospitalIn the event this information is protected by the Federal Confidentiality of Alcohol and Drug Abuse Patient Records regulations: The Federal rules restrict any use of the information to criminally investigate or prosecute any alcohol or drug abuse patient.[facility] HospitalIn the event this information is protected by the Federal Confidentiality of Alcohol and Drug Abuse Patient Records regulations: The Federal rules restrict any use of the information to criminally investigate or prosecute any alcohol or drug abuse patient.[facility] HospitalIn the event this information is protected by the Federal Confidentiality of Alcohol and Drug Abuse Patient Records regulations: The Federal rules restrict any use of the information to criminally investigate or prosecute any alcohol or drug abuse patient.[facility] HospitalIn the event this information is protected by the Federal Confidentiality of Alcohol and Drug Abuse Patient Records regulations: The Federal rules restrict any use of the information to criminally investigate or prosecute any alcohol or drug abuse patient.[facility] HospitalIn the event this information is protected by the Federal Confidentiality of Alcohol and Drug Abuse Patient Records regulations: The Federal rules restrict any use of the information to criminally investigate or prosecute any alcohol or drug abuse patient.[facility] HospitalIn the event this information is protected by the Federal Confidentiality of Alcohol and Drug Abuse Patient Records regulations: The Federal rules restrict any use of the information to criminally investigate or prosecute any alcohol or drug abuse patient.[facility] HospitalIn the event this information is protected by the Federal Confidentiality of Alcohol and Drug Abuse Patient Records regulations: The Federal rules restrict any use of the information to criminally investigate or prosecute any alcohol or drug abuse patient.[facility] HospitalIn the event this information is protected by the Federal Confidentiality of Alcohol and Drug Abuse Patient Records regulations: The Federal rules restrict any use of the information to criminally investigate or prosecute any alcohol or drug abuse patient.[facility] HospitalIn the event this information is protected by the Federal Confidentiality of Alcohol and Drug Abuse Patient Records regulations: The Federal rules restrict any use of the information to criminally investigate or prosecute any alcohol or drug abuse patient.[facility] HospitalIn the event this information is protected by the Federal Confidentiality of Alcohol and Drug Abuse Patient Records regulations: The Federal rules restrict any use of the information to criminally investigate or prosecute any alcohol or drug abuse patient.[facility] HospitalIn the event this information is protected by the Federal Confidentiality of Alcohol and Drug Abuse Patient Records regulations: The Federal rules restrict any use of the information to criminally investigate or prosecute any alcohol or drug abuse patient.[facility] HospitalIn the event this information is protected by the Federal Confidentiality of Alcohol and Drug Abuse Patient Records regulations: The Federal rules restrict any use of the information to criminally investigate or prosecute any alcohol or drug abuse patient.[facility] HospitalIn the event this information is protected by the Federal Confidentiality of Alcohol and Drug Abuse Patient Records regulations: The Federal rules restrict any use of the information to criminally investigate or prosecute any alcohol or drug abuse patient.[facility] HospitalIn the event this information is protected by the Federal Confidentiality of Alcohol and Drug Abuse Patient Records regulations: The Federal rules restrict any use of the information to criminally investigate or prosecute any alcohol or drug abuse patient.[facility] HospitalIn the event this information is protected by the Federal Confidentiality of Alcohol and Drug Abuse Patient Records regulations: The Federal rules restrict any use of the information to criminally investigate or prosecute any alcohol or drug abuse patient.[facility] HospitalIn the event this information is protected by the Federal Confidentiality of Alcohol and Drug Abuse Patient Records regulations: The Federal rules restrict any use of the information to criminally investigate or prosecute any alcohol or drug abuse patient.[facility] HospitalIn the event this information is protected by the Federal Confidentiality of Alcohol and Drug Abuse Patient Records regulations: The Federal rules restrict any use of the information to criminally investigate or prosecute any alcohol or drug abuse patient.[facility] HospitalIn the event this information is protected by the Federal Confidentiality of Alcohol and Drug Abuse Patient Records regulations: The Federal rules restrict any use of the information to criminally investigate or prosecute any alcohol or drug abuse patient.[facility] HospitalIn the event this information is protected by the Federal Confidentiality of Alcohol and Drug Abuse Patient Records regulations: The Federal rules restrict any use of the information to criminally investigate or prosecute any alcohol or drug abuse patient.[facility] HospitalIn the event this information is protected by the Federal Confidentiality of Alcohol and Drug Abuse Patient Records regulations: The Federal rules restrict any use of the information to criminally investigate or prosecute any alcohol or drug abuse patient.[facility] HospitalIn the event this information is protected by the Federal Confidentiality of Alcohol and Drug Abuse Patient Records regulations: The Federal rules restrict any use of the information to criminally investigate or prosecute any alcohol or drug abuse patient.[facility] HospitalIn the event this information is protected by the Federal Confidentiality of Alcohol and Drug Abuse Patient Records regulations: The Federal rules restrict any use of the information to criminally investigate or prosecute any alcohol or drug abuse patient.[facility] HospitalIn the event this information is protected by the Federal Confidentiality of Alcohol and Drug Abuse Patient Records regulations: The Federal rules restrict any use of the information to criminally investigate or prosecute any alcohol or drug abuse patient.[facility] HospitalIn the event this information is protected by the Federal Confidentiality of Alcohol and Drug Abuse Patient Records regulations: The Federal rules restrict any use of the information to criminally investigate or prosecute any alcohol or drug abuse patient.[facility] HospitalIn the event this information is protected by the Federal Confidentiality of Alcohol and Drug Abuse Patient Records regulations: The Federal rules restrict any use of the information to criminally investigate or prosecute any alcohol or drug abuse patient.[facility] HospitalIn the event this information is protected by the Federal Confidentiality of Alcohol and Drug Abuse Patient Records regulations: The Federal rules restrict any use of the information to criminally investigate or prosecute any alcohol or drug abuse patient.[facility] HospitalIn the event this information is protected by the Federal Confidentiality of Alcohol and Drug Abuse Patient Records regulations: The Federal rules restrict any use of the information to criminally investigate or prosecute any alcohol or drug abuse patient.[facility] HospitalIn the event this information is protected by the Federal Confidentiality of Alcohol and Drug Abuse Patient Records regulations: The Federal rules restrict any use of the information to criminally investigate or prosecute any alcohol or drug abuse patient.[facility] HospitalIn the event this information is protected by the Federal Confidentiality of Alcohol and Drug Abuse Patient Records regulations: The Federal rules restrict any use of the information to criminally investigate or prosecute any alcohol or drug abuse patient.[facility] HospitalIn the event this information is protected by the Federal Confidentiality of Alcohol and Drug Abuse Patient Records regulations: The Federal rules restrict any use of the information to criminally investigate or prosecute any alcohol or drug abuse patient.[facility] HospitalIn the event this information is protected by the Federal Confidentiality of Alcohol and Drug Abuse Patient Records regulations: The Federal rules restrict any use of the information to criminally investigate or prosecute any alcohol or drug abuse patient.[facility] HospitalIn the event this information is protected by the Federal Confidentiality of Alcohol and Drug Abuse Patient Records regulations: The Federal rules restrict any use of the information to criminally investigate or prosecute any alcohol or drug abuse patient.[facility] HospitalIn the event this information is protected by the Federal Confidentiality of Alcohol and Drug Abuse Patient Records regulations: The Federal rules restrict any use of the information to criminally investigate or prosecute any alcohol or drug abuse patient.[facility] HospitalIn the event this information is protected by the Federal Confidentiality of Alcohol and Drug Abuse Patient Records regulations: The Federal rules restrict any use of the information to criminally investigate or prosecute any alcohol or drug abuse patient.[facility] HospitalIn the event this information is protected by the Federal Confidentiality of Alcohol and Drug Abuse Patient Records regulations: The Federal rules restrict any use of the information to criminally investigate or prosecute any alcohol or drug abuse patient.[facility] HospitalIn the event this information is protected by the Federal Confidentiality of Alcohol and Drug Abuse Patient Records regulations: The Federal rules restrict any use of the information to criminally investigate or prosecute any alcohol or drug abuse patient.[facility] HospitalIn the event this information is protected by the Federal Confidentiality of Alcohol and Drug Abuse Patient Records regulations: The Federal rules restrict any use of the information to criminally investigate or prosecute any alcohol or drug abuse patient.[facility] HospitalIn the event this information is protected by the Federal Confidentiality of Alcohol and Drug Abuse Patient Records regulations: The Federal rules restrict any use of the information to criminally investigate or prosecute any alcohol or drug abuse patient.[facility] HospitalIn the event this information is protected by the Federal Confidentiality of Alcohol and Drug Abuse Patient Records regulations: The Federal rules restrict any use of the information to criminally investigate or prosecute any alcohol or drug abuse patient.[facility] HospitalIn the event this information is protected by the Federal Confidentiality of Alcohol and Drug Abuse Patient Records regulations: The Federal rules restrict any use of the information to criminally investigate or prosecute any alcohol or drug abuse patient.[facility] HospitalIn the event this information is protected by the Federal Confidentiality of Alcohol and Drug Abuse Patient Records regulations: The Federal rules restrict any use of the information to criminally investigate or prosecute any alcohol or drug abuse patient.[facility] HospitalIn the event this information is protected by the Federal Confidentiality of Alcohol and Drug Abuse Patient Records regulations: The Federal rules restrict any use of the information to criminally investigate or prosecute any alcohol or drug abuse patient.[facility] HospitalIn the event this information is protected by the Federal Confidentiality of Alcohol and Drug Abuse Patient Records regulations: The Federal rules restrict any use of the information to criminally investigate or prosecute any alcohol or drug abuse patient.[facility] HospitalIn the event this information is protected by the Federal Confidentiality of Alcohol and Drug Abuse Patient Records regulations: The Federal rules restrict any use of the information to criminally investigate or prosecute any alcohol or drug abuse patient.[facility] HospitalIn the event this information is protected by the Federal Confidentiality of Alcohol and Drug Abuse Patient Records regulations: The Federal rules restrict any use of the information to criminally investigate or prosecute any alcohol or drug abuse patient.[facility] HospitalIn the event this information is protected by the Federal Confidentiality of Alcohol and Drug Abuse Patient Records regulations: The Federal rules restrict any use of the information to criminally investigate or prosecute any alcohol or drug abuse patient.[facility] HospitalIn the event this information is protected by the Federal Confidentiality of Alcohol and Drug Abuse Patient Records regulations: The Federal rules restrict any use of the information to criminally investigate or prosecute any alcohol or drug abuse patient.[facility] HospitalIn the event this information is protected by the Federal Confidentiality of Alcohol and Drug Abuse Patient Records regulations: The Federal rules restrict any use of the information to criminally investigate or prosecute any alcohol or drug abuse patient.[facility] HospitalIn the event this information is protected by the Federal Confidentiality of Alcohol and Drug Abuse Patient Records regulations: The Federal rules restrict any use of the information to criminally investigate or prosecute any alcohol or drug abuse patient.[facility] HospitalIn the event this information is protected by the Federal Confidentiality of Alcohol and Drug Abuse Patient Records regulations: The Federal rules restrict any use of the information to criminally investigate or prosecute any alcohol or drug abuse patient.[facility] HospitalIn the event this information is protected by the Federal Confidentiality of Alcohol and Drug Abuse Patient Records regulations: The Federal rules restrict any use of the information to criminally investigate or prosecute any alcohol or drug abuse patient.[facility] HospitalIn the event this information is protected by the Federal Confidentiality of Alcohol and Drug Abuse Patient Records regulations: The Federal rules restrict any use of the information to criminally investigate or prosecute any alcohol or drug abuse patient.[facility] HospitalIn the event this information is protected by the Federal Confidentiality of Alcohol and Drug Abuse Patient Records regulations: The Federal rules restrict any use of the information to criminally investigate or prosecute any alcohol or drug abuse patient.[facility] HospitalIn the event this information is protected by the Federal Confidentiality of Alcohol and Drug Abuse Patient Records regulations: The Federal rules restrict any use of the information to criminally investigate or prosecute any alcohol or drug abuse patient.[facility] HospitalIn the event this information is protected by the Federal Confidentiality of Alcohol and Drug Abuse Patient Records regulations: The Federal rules restrict any use of the information to criminally investigate or prosecute any alcohol or drug abuse patient.[facility] HospitalIn the event this information is protected by the Federal Confidentiality of Alcohol and Drug Abuse Patient Records regulations: The Federal rules restrict any use of the information to criminally investigate or prosecute any alcohol or drug abuse patient.[facility] HospitalIn the event this information is protected by the Federal Confidentiality of Alcohol and Drug Abuse Patient Records regulations: The Federal rules restrict any use of the information to criminally investigate or prosecute any alcohol or drug abuse patient.[facility] HospitalIn the event this information is protected by the Federal Confidentiality of Alcohol and Drug Abuse Patient Records regulations: The Federal rules restrict any use of the information to criminally investigate or prosecute any alcohol or drug abuse patient.[facility] HospitalIn the event this information is protected by the Federal Confidentiality of Alcohol and Drug Abuse Patient Records regulations: The Federal rules restrict any use of the information to criminally investigate or prosecute any alcohol or drug abuse patient.[facility] HospitalIn the event this information is protected by the Federal Confidentiality of Alcohol and Drug Abuse Patient Records regulations: The Federal rules restrict any use of the information to criminally investigate or prosecute any alcohol or drug abuse patient.[facility] HospitalIn the event this information is protected by the Federal Confidentiality of Alcohol and Drug Abuse Patient Records regulations: The Federal rules restrict any use of the information to criminally investigate or prosecute any alcohol or drug abuse patient.[facility] HospitalIn the event this information is protected by the Federal Confidentiality of Alcohol and Drug Abuse Patient Records regulations: The Federal rules restrict any use of the information to criminally investigate or prosecute any alcohol or drug abuse patient.[facility]In the event this information is protected by the Federal Confidentiality of Alcohol and Drug Abuse Patient Records regulations: The Federal rules restrict any use of the information to criminally investigate or prosecute any alcohol or drug abuse patient.[facility]In the event this information is protected by the Federal Confidentiality of Alcohol and Drug Abuse Patient Records regulations: The Federal rules restrict any use of the information to criminally investigate or prosecute any alcohol or drug abuse patient.[facility]In the event this information is protected by the Federal Confidentiality of Alcohol and Drug Abuse Patient Records regulations: The Federal rules restrict any use of the information to criminally investigate or prosecute any alcohol or drug abuse patient.[facility] HospitalIn the event this information is protected by the Federal Confidentiality of Alcohol and Drug Abuse Patient Records regulations: The Federal rules restrict any use of the information to criminally investigate or prosecute any alcohol or drug abuse patient.[facility] HospitalIn the event this information is protected by the Federal Confidentiality of Alcohol and Drug Abuse Patient Records regulations: The Federal rules restrict any use of the information to criminally investigate or prosecute any alcohol or drug abuse patient.[facility]In the event this information is protected by the Federal Confidentiality of Alcohol and Drug Abuse Patient Records regulations: The Federal rules restrict any use of the information to criminally investigate or prosecute any alcohol or drug abuse patient.[facility] HospitalIn the event this information is protected by the Federal Confidentiality of Alcohol and Drug Abuse Patient Records regulations: The Federal rules restrict any use of the information to criminally investigate or prosecute any alcohol or drug abuse patient.[facility]In the event this information is protected by the Federal Confidentiality of Alcohol and Drug Abuse Patient Records regulations: The Federal rules restrict any use of the information to criminally investigate or prosecute any alcohol or drug abuse patient.[facility] HospitalIn the event this information is protected by the Federal Confidentiality of Alcohol and Drug Abuse Patient Records regulations: The Federal rules restrict any use of the information to criminally investigate or prosecute any alcohol or drug abuse patient.[facility] HospitalIn the event this information is protected by the Federal Confidentiality of Alcohol and Drug Abuse Patient Records regulations: The Federal rules restrict any use of the information to criminally investigate or prosecute any alcohol or drug abuse patient.[facility] HospitalIn the event this information is protected by the Federal Confidentiality of Alcohol and Drug Abuse Patient Records regulations: The Federal rules restrict any use of the information to criminally investigate or prosecute any alcohol or drug abuse patient.[facility] HospitalIn the event this information is protected by the Federal Confidentiality of Alcohol and Drug Abuse Patient Records regulations: The Federal rules restrict any use of the information to criminally investigate or prosecute any alcohol or drug abuse patient.[facility] HospitalIn the event this information is protected by the Federal Confidentiality of Alcohol and Drug Abuse Patient Records regulations: The Federal rules restrict any use of the information to criminally investigate or prosecute any alcohol or drug abuse patient.[facility] HospitalIn the event this information is protected by the Federal Confidentiality of Alcohol and Drug Abuse Patient Records regulations: The Federal rules restrict any use of the information to criminally investigate or prosecute any alcohol or drug abuse patient.[facility] HospitalIn the event this information is protected by the Federal Confidentiality of Alcohol and Drug Abuse Patient Records regulations: The Federal rules restrict any use of the information to criminally investigate or prosecute any alcohol or drug abuse patient.[facility] HospitalIn the event this information is protected by the Federal Confidentiality of Alcohol and Drug Abuse Patient Records regulations: The Federal rules restrict any use of the information to criminally investigate or prosecute any alcohol or drug abuse patient.[facility] HospitalIn the event this information is protected by the Federal Confidentiality of Alcohol and Drug Abuse Patient Records regulations: The Federal rules restrict any use of the information to criminally investigate or prosecute any alcohol or drug abuse patient.[facility] HospitalIn the event this information is protected by the Federal Confidentiality of Alcohol and Drug Abuse Patient Records regulations: The Federal rules restrict any use of the information to criminally investigate or prosecute any alcohol or drug abuse patient.[facility] HospitalIn the event this information is protected by the Federal Confidentiality of Alcohol and Drug Abuse Patient Records regulations: The Federal rules restrict any use of the information to criminally investigate or prosecute any alcohol or drug abuse patient.[facility] HospitalIn the event this information is protected by the Federal Confidentiality of Alcohol and Drug Abuse Patient Records regulations: The Federal rules restrict any use of the information to criminally investigate or prosecute any alcohol or drug abuse patient.[facility] HospitalIn the event this information is protected by the Federal Confidentiality of Alcohol and Drug Abuse Patient Records regulations: The Federal rules restrict any use of the information to criminally investigate or prosecute any alcohol or drug abuse patient.[facility] HospitalIn the event this information is protected by the Federal Confidentiality of Alcohol and Drug Abuse Patient Records regulations: The Federal rules restrict any use of the information to criminally investigate or prosecute any alcohol or drug abuse patient.[facility] HospitalIn the event this information is protected by the Federal Confidentiality of Alcohol and Drug Abuse Patient Records regulations: The Federal rules restrict any use of the information to criminally investigate or prosecute any alcohol or drug abuse patient.[facility] HospitalIn the event this information is protected by the Federal Confidentiality of Alcohol and Drug Abuse Patient Records regulations: The Federal rules restrict any use of the information to criminally investigate or prosecute any alcohol or drug abuse patient.[facility] HospitalIn the event this information is protected by the Federal Confidentiality of Alcohol and Drug Abuse Patient Records regulations: The Federal rules restrict any use of the information to criminally investigate or prosecute any alcohol or drug abuse patient.[facility] HospitalIn the event this information is protected by the Federal Confidentiality of Alcohol and Drug Abuse Patient Records regulations: The Federal rules restrict any use of the information to criminally investigate or prosecute any alcohol or drug abuse patient.[facility] HospitalIn the event this information is protected by the Federal Confidentiality of Alcohol and Drug Abuse Patient Records regulations: The Federal rules restrict any use of the information to criminally investigate or prosecute any alcohol or drug abuse patient.[facility] HospitalIn the event this information is protected by the Federal Confidentiality of Alcohol and Drug Abuse Patient Records regulations: The Federal rules restrict any use of the information to criminally investigate or prosecute any alcohol or drug abuse patient.[facility] HospitalIn the event this information is protected by the Federal Confidentiality of Alcohol and Drug Abuse Patient Records regulations: The Federal rules restrict any use of the information to criminally investigate or prosecute any alcohol or drug abuse patient.[facility] HospitalIn the event this information is protected by the Federal Confidentiality of Alcohol and Drug Abuse Patient Records regulations: The Federal rules restrict any use of the information to criminally investigate or prosecute any alcohol or drug abuse patient.[facility] HospitalIn the event this information is protected by the Federal Confidentiality of Alcohol and Drug Abuse Patient Records regulations: The Federal rules restrict any use of the information to criminally investigate or prosecute any alcohol or drug abuse patient.[facility] HospitalIn the event this information is protected by the Federal Confidentiality of Alcohol and Drug Abuse Patient Records regulations: The Federal rules restrict any use of the information to criminally investigate or prosecute any alcohol or drug abuse patient.[facility] HospitalIn the event this information is protected by the Federal Confidentiality of Alcohol and Drug Abuse Patient Records regulations: The Federal rules restrict any use of the information to criminally investigate or prosecute any alcohol or drug abuse patient.[facility] HospitalIn the event this information is protected by the Federal Confidentiality of Alcohol and Drug Abuse Patient Records regulations: The Federal rules restrict any use of the information to criminally investigate or prosecute any alcohol or drug abuse patient.[facility] HospitalIn the event this information is protected by the Federal Confidentiality of Alcohol and Drug Abuse Patient Records regulations: The Federal rules restrict any use of the information to criminally investigate or prosecute any alcohol or drug abuse patient.[facility] HospitalIn the event this information is protected by the Federal Confidentiality of Alcohol and Drug Abuse Patient Records regulations: The Federal rules restrict any use of the information to criminally investigate or prosecute any alcohol or drug abuse patient.[facility] HospitalIn the event this information is protected by the Federal Confidentiality of Alcohol and Drug Abuse Patient Records regulations: The Federal rules restrict any use of the information to criminally investigate or prosecute any alcohol or drug abuse patient.[facility] HospitalIn the event this information is protected by the Federal Confidentiality of Alcohol and Drug Abuse Patient Records regulations: The Federal rules restrict any use of the information to criminally investigate or prosecute any alcohol or drug abuse patient.[facility] HospitalIn the event this information is protected by the Federal Confidentiality of Alcohol and Drug Abuse Patient Records regulations: The Federal rules restrict any use of the information to criminally investigate or prosecute any alcohol or drug abuse patient.[facility] HospitalIn the event this information is protected by the Federal Confidentiality of Alcohol and Drug Abuse Patient Records regulations: The Federal rules restrict any use of the information to criminally investigate or prosecute any alcohol or drug abuse patient.[facility] HospitalIn the event this information is protected by the Federal Confidentiality of Alcohol and Drug Abuse Patient Records regulations: The Federal rules restrict any use of the information to criminally investigate or prosecute any alcohol or drug abuse patient.[facility] HospitalIn the event this information is protected by the Federal Confidentiality of Alcohol and Drug Abuse Patient Records regulations: The Federal rules restrict any use of the information to criminally investigate or prosecute any alcohol or drug abuse patient.[facility] HospitalIn the event this information is protected by the Federal Confidentiality of Alcohol and Drug Abuse Patient Records regulations: The Federal rules restrict any use of the information to criminally investigate or prosecute any alcohol or drug abuse patient.[facility] HospitalIn the event this information is protected by the Federal Confidentiality of Alcohol and Drug Abuse Patient Records regulations: The Federal rules restrict any use of the information to criminally investigate or prosecute any alcohol or drug abuse patient.[facility] HospitalIn the event this information is protected by the Federal Confidentiality of Alcohol and Drug Abuse Patient Records regulations: The Federal rules restrict any use of the information to criminally investigate or prosecute any alcohol or drug abuse patient.[facility] HospitalIn the event this information is protected by the Federal Confidentiality of Alcohol and Drug Abuse Patient Records regulations: The Federal rules restrict any use of the information to criminally investigate or prosecute any alcohol or drug abuse patient.[facility] HospitalIn the event this information is protected by the Federal Confidentiality of Alcohol and Drug Abuse Patient Records regulations: The Federal rules restrict any use of the information to criminally investigate or prosecute any alcohol or drug abuse patient.[facility] HospitalIn the event this information is protected by the Federal Confidentiality of Alcohol and Drug Abuse Patient Records regulations: The Federal rules restrict any use of the information to criminally investigate or prosecute any alcohol or drug abuse patient.[facility] HospitalIn the event this information is protected by the Federal Confidentiality of Alcohol and Drug Abuse Patient Records regulations: The Federal rules restrict any use of the information to criminally investigate or prosecute any alcohol or drug abuse patient.[facility] HospitalIn the event this information is protected by the Federal Confidentiality of Alcohol and Drug Abuse Patient Records regulations: The Federal rules restrict any use of the information to criminally investigate or prosecute any alcohol or drug abuse patient.[facility] HospitalIn the event this information is protected by the Federal Confidentiality of Alcohol and Drug Abuse Patient Records regulations: The Federal rules restrict any use of the information to criminally investigate or prosecute any alcohol or drug abuse patient.[facility] HospitalIn the event this information is protected by the Federal Confidentiality of Alcohol and Drug Abuse Patient Records regulations: The Federal rules restrict any use of the information to criminally investigate or prosecute any alcohol or drug abuse patient.[facility] HospitalIn the event this information is protected by the Federal Confidentiality of Alcohol and Drug Abuse Patient Records regulations: The Federal rules restrict any use of the information to criminally investigate or prosecute any alcohol or drug abuse patient.[facility] HospitalIn the event this information is protected by the Federal Confidentiality of Alcohol and Drug Abuse Patient Records regulations: The Federal rules restrict any use of the information to criminally investigate or prosecute any alcohol or drug abuse patient.[facility] HospitalIn the event this information is protected by the Federal Confidentiality of Alcohol and Drug Abuse Patient Records regulations: The Federal rules restrict any use of the information to criminally investigate or prosecute any alcohol or drug abuse patient.[facility] HospitalIn the event this information is protected by the Federal Confidentiality of Alcohol and Drug Abuse Patient Records regulations: The Federal rules restrict any use of the information to criminally investigate or prosecute any alcohol or drug abuse patient.[facility] HospitalIn the event this information is protected by the Federal Confidentiality of Alcohol and Drug Abuse Patient Records regulations: The Federal rules restrict any use of the information to criminally investigate or prosecute any alcohol or drug abuse patient.[facility] HospitalIn the event this information is protected by the Federal Confidentiality of Alcohol and Drug Abuse Patient Records regulations: The Federal rules restrict any use of the information to criminally investigate or prosecute any alcohol or drug abuse patient.[facility] HospitalIn the event this information is protected by the Federal Confidentiality of Alcohol and Drug Abuse Patient Records regulations: The Federal rules restrict any use of the information to criminally investigate or prosecute any alcohol or drug abuse patient.[facility] HospitalIn the event this information is protected by the Federal Confidentiality of Alcohol and Drug Abuse Patient Records regulations: The Federal rules restrict any use of the information to criminally investigate or prosecute any alcohol or drug abuse patient.[facility] HospitalIn the event this information is protected by the Federal Confidentiality of Alcohol and Drug Abuse Patient Records regulations: The Federal rules restrict any use of the information to criminally investigate or prosecute any alcohol or drug abuse patient.[facility] HospitalIn the event this information is protected by the Federal Confidentiality of Alcohol and Drug Abuse Patient Records regulations: The Federal rules restrict any use of the information to criminally investigate or prosecute any alcohol or drug abuse patient.[facility] HospitalIn the event this information is protected by the Federal Confidentiality of Alcohol and Drug Abuse Patient Records regulations: The Federal rules restrict any use of the information to criminally investigate or prosecute any alcohol or drug abuse patient.[facility] HospitalIn the event this information is protected by the Federal Confidentiality of Alcohol and Drug Abuse Patient Records regulations: The Federal rules restrict any use of the information to criminally investigate or prosecute any alcohol or drug abuse patient.[facility] HospitalIn the event this information is protected by the Federal Confidentiality of Alcohol and Drug Abuse Patient Records regulations: The Federal rules restrict any use of the information to criminally investigate or prosecute any alcohol or drug abuse patient.[facility] HospitalIn the event this information is protected by the Federal Confidentiality of Alcohol and Drug Abuse Patient Records regulations: The Federal rules restrict any use of the information to criminally investigate or prosecute any alcohol or drug abuse patient.[facility] HospitalIn the event this information is protected by the Federal Confidentiality of Alcohol and Drug Abuse Patient Records regulations: The Federal rules restrict any use of the information to criminally investigate or prosecute any alcohol or drug abuse patient.[facility] HospitalIn the event this information is protected by the Federal Confidentiality of Alcohol and Drug Abuse Patient Records regulations: The Federal rules restrict any use of the information to criminally investigate or prosecute any alcohol or drug abuse patient.[facility] HospitalIn the event this information is protected by the Federal Confidentiality of Alcohol and Drug Abuse Patient Records regulations: The Federal rules restrict any use of the information to criminally investigate or prosecute any alcohol or drug abuse patient.[facility] HospitalIn the event this information is protected by the Federal Confidentiality of Alcohol and Drug Abuse Patient Records regulations: The Federal rules restrict any use of the information to criminally investigate or prosecute any alcohol or drug abuse patient.[facility] HospitalIn the event this information is protected by the Federal Confidentiality of Alcohol and Drug Abuse Patient Records regulations: The Federal rules restrict any use of the information to criminally investigate or prosecute any alcohol or drug abuse patient.[facility] HospitalIn the event this information is protected by the Federal Confidentiality of Alcohol and Drug Abuse Patient Records regulations: The Federal rules restrict any use of the information to criminally investigate or prosecute any alcohol or drug abuse patient.[facility] HospitalIn the event this information is protected by the Federal Confidentiality of Alcohol and Drug Abuse Patient Records regulations: The Federal rules restrict any use of the information to criminally investigate or prosecute any alcohol or drug abuse patient.[facility] HospitalIn the event this information is protected by the Federal Confidentiality of Alcohol and Drug Abuse Patient Records regulations: The Federal rules restrict any use of the information to criminally investigate or prosecute any alcohol or drug abuse patient.[facility] HospitalIn the event this information is protected by the Federal Confidentiality of Alcohol and Drug Abuse Patient Records regulations: The Federal rules restrict any use of the information to criminally investigate or prosecute any alcohol or drug abuse patient.[facility] HospitalIn the event this information is protected by the Federal Confidentiality of Alcohol and Drug Abuse Patient Records regulations: The Federal rules restrict any use of the information to criminally investigate or prosecute any alcohol or drug abuse patient.[facility] HospitalIn the event this information is protected by the Federal Confidentiality of Alcohol and Drug Abuse Patient Records regulations: The Federal rules restrict any use of the information to criminally investigate or prosecute any alcohol or drug abuse patient.[facility] HospitalIn the event this information is protected by the Federal Confidentiality of Alcohol and Drug Abuse Patient Records regulations: The Federal rules restrict any use of the information to criminally investigate or prosecute any alcohol or drug abuse patient.[facility]In the event this information is protected by the Federal Confidentiality of Alcohol and Drug Abuse Patient Records regulations: The Federal rules restrict any use of the information to criminally investigate or prosecute any alcohol or drug abuse patient.[facility]In the event this information is protected by the Federal Confidentiality of Alcohol and Drug Abuse Patient Records regulations: The Federal rules restrict any use of the information to criminally investigate or prosecute any alcohol or drug abuse patient.[facility] HospitalIn the event this information is protected by the Federal Confidentiality of Alcohol and Drug Abuse Patient Records regulations: The Federal rules restrict any use of the information to criminally investigate or prosecute any alcohol or drug abuse patient.[facility] HospitalIn the event this information is protected by the Federal Confidentiality of Alcohol and Drug Abuse Patient Records regulations: The Federal rules restrict any use of the information to criminally investigate or prosecute any alcohol or drug abuse patient.[facility] HospitalIn the event this information is protected by the Federal Confidentiality of Alcohol and Drug Abuse Patient Records regulations: The Federal rules restrict any use of the information to criminally investigate or prosecute any alcohol or drug abuse patient.[facility] HospitalIn the event this information is protected by the Federal Confidentiality of Alcohol and Drug Abuse Patient Records regulations: The Federal rules restrict any use of the information to criminally investigate or prosecute any alcohol or drug abuse patient.[facility] HospitalIn the event this information is protected by the Federal Confidentiality of Alcohol and Drug Abuse Patient Records regulations: The Federal rules restrict any use of the information to criminally investigate or prosecute any alcohol or drug abuse patient.[facility] HospitalIn the event this information is protected by the Federal Confidentiality of Alcohol and Drug Abuse Patient Records regulations: The Federal rules restrict any use of the information to criminally investigate or prosecute any alcohol or drug abuse patient.[facility] HospitalIn the event this information is protected by the Federal Confidentiality of Alcohol and Drug Abuse Patient Records regulations: The Federal rules restrict any use of the information to criminally investigate or prosecute any alcohol or drug abuse patient.[facility] HospitalIn the event this information is protected by the Federal Confidentiality of Alcohol and Drug Abuse Patient Records regulations: The Federal rules restrict any use of the information to criminally investigate or prosecute any alcohol or drug abuse patient.[facility] HospitalIn the event this information is protected by the Federal Confidentiality of Alcohol and Drug Abuse Patient Records regulations: The Federal rules restrict any use of the information to criminally investigate or prosecute any alcohol or drug abuse patient.[facility] HospitalIn the event this information is protected by the Federal Confidentiality of Alcohol and Drug Abuse Patient Records regulations: The Federal rules restrict any use of the information to criminally investigate or prosecute any alcohol or drug abuse patient.[facility] HospitalIn the event this information is protected by the Federal Confidentiality of Alcohol and Drug Abuse Patient Records regulations: The Federal rules restrict any use of the information to criminally investigate or prosecute any alcohol or drug abuse patient.[facility] HospitalIn the event this information is protected by the Federal Confidentiality of Alcohol and Drug Abuse Patient Records regulations: The Federal rules restrict any use of the information to criminally investigate or prosecute any alcohol or drug abuse patient.[facility] HospitalIn the event this information is protected by the Federal Confidentiality of Alcohol and Drug Abuse Patient Records regulations: The Federal rules restrict any use of the information to criminally investigate or prosecute any alcohol or drug abuse patient.[facility] HospitalIn the event this information is protected by the Federal Confidentiality of Alcohol and Drug Abuse Patient Records regulations: The Federal rules restrict any use of the information to criminally investigate or prosecute any alcohol or drug abuse patient.[facility] HospitalIn the event this information is protected by the Federal Confidentiality of Alcohol and Drug Abuse Patient Records regulations: The Federal rules restrict any use of the information to criminally investigate or prosecute any alcohol or drug abuse patient.[facility] HospitalIn the event this information is protected by the Federal Confidentiality of Alcohol and Drug Abuse Patient Records regulations: The Federal rules restrict any use of the information to criminally investigate or prosecute any alcohol or drug abuse patient.[facility] HospitalIn the event this information is protected by the Federal Confidentiality of Alcohol and Drug Abuse Patient Records regulations: The Federal rules restrict any use of the information to criminally investigate or prosecute any alcohol or drug abuse patient.[facility] HospitalIn the event this information is protected by the Federal Confidentiality of Alcohol and Drug Abuse Patient Records regulations: The Federal rules restrict any use of the information to criminally investigate or prosecute any alcohol or drug abuse patient.[facility] HospitalIn the event this information is protected by the Federal Confidentiality of Alcohol and Drug Abuse Patient Records regulations: The Federal rules restrict any use of the information to criminally investigate or prosecute any alcohol or drug abuse patient.[facility] HospitalIn the event this information is protected by the Federal Confidentiality of Alcohol and Drug Abuse Patient Records regulations: The Federal rules restrict any use of the information to criminally investigate or prosecute any alcohol or drug abuse patient.[facility] HospitalIn the event this information is protected by the Federal Confidentiality of Alcohol and Drug Abuse Patient Records regulations: The Federal rules restrict any use of the information to criminally investigate or prosecute any alcohol or drug abuse patient.[facility] HospitalIn the event this information is protected by the Federal Confidentiality of Alcohol and Drug Abuse Patient Records regulations: The Federal rules restrict any use of the information to criminally investigate or prosecute any alcohol or drug abuse patient.[facility] HospitalIn the event this information is protected by the Federal Confidentiality of Alcohol and Drug Abuse Patient Records regulations: The Federal rules restrict any use of the information to criminally investigate or prosecute any alcohol or drug abuse patient.[facility] HospitalIn the event this information is protected by the Federal Confidentiality of Alcohol and Drug Abuse Patient Records regulations: The Federal rules restrict any use of the information to criminally investigate or prosecute any alcohol or drug abuse patient.[facility] HospitalIn the event this information is protected by the Federal Confidentiality of Alcohol and Drug Abuse Patient Records regulations: The Federal rules restrict any use of the information to criminally investigate or prosecute any alcohol or drug abuse patient.[facility] HospitalIn the event this information is protected by the Federal Confidentiality of Alcohol and Drug Abuse Patient Records regulations: The Federal rules restrict any use of the information to criminally investigate or prosecute any alcohol or drug abuse patient.[facility] HospitalIn the event this information is protected by the Federal Confidentiality of Alcohol and Drug Abuse Patient Records regulations: The Federal rules restrict any use of the information to criminally investigate or prosecute any alcohol or drug abuse patient.[facility] HospitalIn the event this information is protected by the Federal Confidentiality of Alcohol and Drug Abuse Patient Records regulations: The Federal rules restrict any use of the information to criminally investigate or prosecute any alcohol or drug abuse patient.[facility] HospitalIn the event this information is protected by the Federal Confidentiality of Alcohol and Drug Abuse Patient Records regulations: The Federal rules restrict any use of the information to criminally investigate or prosecute any alcohol or drug abuse patient.[facility] HospitalIn the event this information is protected by the Federal Confidentiality of Alcohol and Drug Abuse Patient Records regulations: The Federal rules restrict any use of the information to criminally investigate or prosecute any alcohol or drug abuse patient.[facility] HospitalIn the event this information is protected by the Federal Confidentiality of Alcohol and Drug Abuse Patient Records regulations: The Federal rules restrict any use of the information to criminally investigate or prosecute any alcohol or drug abuse patient.[facility] HospitalIn the event this information is protected by the Federal Confidentiality of Alcohol and Drug Abuse Patient Records regulations: The Federal rules restrict any use of the information to criminally investigate or prosecute any alcohol or drug abuse patient.[facility] HospitalIn the event this information is protected by the Federal Confidentiality of Alcohol and Drug Abuse Patient Records regulations: The Federal rules restrict any use of the information to criminally investigate or prosecute any alcohol or drug abuse patient.[facility] HospitalIn the event this information is protected by the Federal Confidentiality of Alcohol and Drug Abuse Patient Records regulations: The Federal rules restrict any use of the information to criminally investigate or prosecute any alcohol or drug abuse patient.[facility] HospitalIn the event this information is protected by the Federal Confidentiality of Alcohol and Drug Abuse Patient Records regulations: The Federal rules restrict any use of the information to criminally investigate or prosecute any alcohol or drug abuse patient.[facility] HospitalIn the event this information is protected by the Federal Confidentiality of Alcohol and Drug Abuse Patient Records regulations: The Federal rules restrict any use of the information to criminally investigate or prosecute any alcohol or drug abuse patient.[facility] HospitalIn the event this information is protected by the Federal Confidentiality of Alcohol and Drug Abuse Patient Records regulations: The Federal rules restrict any use of the information to criminally investigate or prosecute any alcohol or drug abuse patient.[facility] HospitalIn the event this information is protected by the Federal Confidentiality of Alcohol and Drug Abuse Patient Records regulations: The Federal rules restrict any use of the information to criminally investigate or prosecute any alcohol or drug abuse patient.[facility] HospitalIn the event this information is protected by the Federal Confidentiality of Alcohol and Drug Abuse Patient Records regulations: The Federal rules restrict any use of the information to criminally investigate or prosecute any alcohol or drug abuse patient.[facility] HospitalIn the event this information is protected by the Federal Confidentiality of Alcohol and Drug Abuse Patient Records regulations: The Federal rules restrict any use of the information to criminally investigate or prosecute any alcohol or drug abuse patient.[facility] HospitalIn the event this information is protected by the Federal Confidentiality of Alcohol and Drug Abuse Patient Records regulations: The Federal rules restrict any use of the information to criminally investigate or prosecute any alcohol or drug abuse patient.[facility] HospitalIn the event this information is protected by the Federal Confidentiality of Alcohol and Drug Abuse Patient Records regulations: The Federal rules restrict any use of the information to criminally investigate or prosecute any alcohol or drug abuse patient.[facility] HospitalIn the event this information is protected by the Federal Confidentiality of Alcohol and Drug Abuse Patient Records regulations: The Federal rules restrict any use of the information to criminally investigate or prosecute any alcohol or drug abuse patient.[facility] HospitalIn the event this information is protected by the Federal Confidentiality of Alcohol and Drug Abuse Patient Records regulations: The Federal rules restrict any use of the information to criminally investigate or prosecute any alcohol or drug abuse patient.[facility] HospitalIn the event this information is protected by the Federal Confidentiality of Alcohol and Drug Abuse Patient Records regulations: The Federal rules restrict any use of the information to criminally investigate or prosecute any alcohol or drug abuse patient.[facility] HospitalIn the event this information is protected by the Federal Confidentiality of Alcohol and Drug Abuse Patient Records regulations: The Federal rules restrict any use of the information to criminally investigate or prosecute any alcohol or drug abuse patient.[facility] HospitalIn the event this information is protected by the Federal Confidentiality of Alcohol and Drug Abuse Patient Records regulations: The Federal rules restrict any use of the information to criminally investigate or prosecute any alcohol or drug abuse patient.[facility] HospitalIn the event this information is protected by the Federal Confidentiality of Alcohol and Drug Abuse Patient Records regulations: The Federal rules restrict any use of the information to criminally investigate or prosecute any alcohol or drug abuse patient.[facility] HospitalIn the event this information is protected by the Federal Confidentiality of Alcohol and Drug Abuse Patient Records regulations: The Federal rules restrict any use of the information to criminally investigate or prosecute any alcohol or drug abuse patient.[facility] HospitalIn the event this information is protected by the Federal Confidentiality of Alcohol and Drug Abuse Patient Records regulations: The Federal rules restrict any use of the information to criminally investigate or prosecute any alcohol or drug abuse patient.[facility] HospitalIn the event this information is protected by the Federal Confidentiality of Alcohol and Drug Abuse Patient Records regulations: The Federal rules restrict any use of the information to criminally investigate or prosecute any alcohol or drug abuse patient.[facility] HospitalIn the event this information is protected by the Federal Confidentiality of Alcohol and Drug Abuse Patient Records regulations: The Federal rules restrict any use of the information to criminally investigate or prosecute any alcohol or drug abuse patient.[facility] HospitalIn the event this information is protected by the Federal Confidentiality of Alcohol and Drug Abuse Patient Records regulations: The Federal rules restrict any use of the information to criminally investigate or prosecute any alcohol or drug abuse patient.[facility] HospitalIn the event this information is protected by the Federal Confidentiality of Alcohol and Drug Abuse Patient Records regulations: The Federal rules restrict any use of the information to criminally investigate or prosecute any alcohol or drug abuse patient.[facility] Care Teams (unrecognized sec tion and content) Correspondence Representative Relationship Specialty Start Date End Date Wojciech Treviño [address] [place] [address] PCP - General 01/18/10 Correspondence Representative Relationship Specialty Start Date End Date Wojciech Treviño [address] [place] [address] PCP - General 01/18/10 Correspondence Representative Relationship Specialty Start Date End Date Wojciech Treviño [address] [place] [address] PCP - General 01/18/10 Correspondence Representative Relationship Specialty Start Date End Date Wojciech TreviñoDO [address] [place] [address] PCP - General 01/18/10 Correspondence Representative Relationship Specialty Start Date End Date Wojciech Treviño, DO [address] [place] [address] PCP - General 01/18/10 Correspondence Representative Relationship Specialty Start Date End Date Wojciech Treviño, DO [address] [place] [address] PCP - General 01/18/10 Correspondence Representative Relationship Specialty Start Date End Date Wojciech Treviño, DO [address] [place] [address] PCP - General 01/18/10 Correspondence Representative Relationship Specialty Start Date End Date Wojciech Treviño, DO [address] [place] [address] PCP - General 01/18/10 Team Status: Active Member Role Status Dates Wojciech Treviño , DO Primary Care Provider Active Pardeep Lee DO Family Provider Active Pardeep Barraza MD Emergency Provider Active Hussain Cat MD Admit Provider, Attending Chad zuniga Active Team Status: Active Member Role Status Dates Pardeep Lee DO Family Provider Active Wojciech Maxjason DO Primary Care Provider Active Team Status: Inactive Member Role Status Dates Wojciech Treviño , DO Primary Care Provider Active Pardeep Lee DO Family Provider Active Pardeep Barraza MD Emergency Provider Active Hussain Cat MD Admit Provider, Attending Chad zuniga Active Rachelle Frazier , Other Provider Active Team Status: Inactive Member Role Status Dates Wojciech Treviño , DO Primary Care Provider Active Pardeep Lee DO Family Provider Active Gaetano Junior DO Emergency Provider Active Correspondence Representative Relationship Specialty Start Date End Date Wojciech Treviño, DO [address] [place] [address] PCP - General 01/18/10 Correspondence Representative Relationship Specialty Start Date End Date Wojciech Treviño, DO [address] [place] [address] PCP - General 01/18/10 Correspondence Representative Relationship Specialty Start Date End Date Wojciech Treviño, DO [address] [place] [address] PCP - General 01/18/10 Correspondence Representative Relationship Specialty Start Date End Date Wojciech Treviño, DO [address] [place] [address] PCP - General 01/18/10 Correspondence Representative Relationship Specialty Start Date End Date Wojciech Treviño, DO [address] [place] [address] PCP - General 01/18/10 Correspondence Representative Relationship Specialty Start Date End Date Wojciech Treviño, DO [address] [place] [address] PCP - General 01/18/10 Correspondence Representative Relationship Specialty Start Date End Date Wojciech Treviño, DO [address] [place] [address] PCP - General 01/18/10 Correspondence Representative Relationship Specialty Start Date End Date Wojciech Treviño, DO [address] [place] [address] PCP - General 01/18/10 Correspondence Representative Relationship Specialty Start Date End Date Wojciech Treviño, DO [address] [place] [address] PCP - General 01/18/10 Correspondence Representative Relationship Specialty Start Date End Date Wojciech Treviño, DO [address] [place] [address] PCP - General 01/18/10 Correspondence Representative Relationship Specialty Start Date End Date Wojciech Treviño, DO [address] [place] [address] PCP - General 01/18/10 Correspondence Representative Relationship Specialty Start Date End Date Wojciech Treviño, DO [address] [place] [address] PCP - General 01/18/10 Correspondence Representative Relationship Specialty Start Date End Date Wojciech Treviño, DO [address] [place] [address] PCP - General 01/18/10 Correspondence Representative Relationship Specialty Start Date End Date Wojciech Treviño, DO [address] [place] [address] PCP - General 01/18/10 Correspondence Representative Relationship Specialty Start Date End Date Wojciech Treviño, DO [address] [place] [address] PCP - General 01/18/10 Correspondence Representative Relationship Specialty Start Date End Date Wojciech Treviño, DO [address] [place] [address] PCP - General 01/18/10 Correspondence Representative Relationship Specialty Start Date End Date Wojciech Treviño, DO [address] [place] [address] PCP - General 01/18/10 Correspondence Representative Relationship Specialty Start Date End Date Wojciech Treviño, DO [address] [place] [address] PCP - General 01/18/10 Correspondence Representative Relationship Specialty Start Date End Date Wojciech Treviño, DO [address] [place] [address] PCP - General 01/18/10 Correspondence Representative Relationship Specialty Start Date End Date Wojciech Treviño, DO [address] [place] [address] PCP - General 01/18/10 Correspondence Representative Relationship Specialty Start Date End Date Wojciech Treviño, DO [address] [place] [address] PCP - General 01/18/10 Correspondence Representative Relationship Specialty Start Date End Date Wojciech Treviño, DO [address] [place] [address] PCP - General 01/18/10 Correspondence Representative Relationship Specialty Start Date End Date Wojciech Treviño, DO [address] [place] [address] PCP - General 01/18/10 Correspondence Representative Relationship Specialty Start Date End Date Wojciech Treviño, DO [address] [place] [address] PCP - General 01/18/10 Correspondence Representative Relationship Specialty Start Date End Date Wojciech Treviño DO [address] [place] [address] PCP - General 01/18/10 Correspondence Representative Relationship Specialty Start Date End Date Wojciech Treviño DO [address] [place] [address] PCP - General 01/18/10 Correspondence Representative Relationship Specialty Start Date End Date Wojciech Treviño DO [address] [place] [address] PCP - General 01/18/10 Correspondence Representative Relationship Specialty Start Date End Date Wojciech Treviño DO [address] [place] [address] PCP - General 01/18/10 Correspondence Representative Relationship Specialty Start Date End Date Wojciech Treviño DO [address] [place] [address] PCP - General 01/18/10 Correspondence Representative Relationship Specialty Start Date End Date Wojciech Treviño DO [address] [place] [address] PCP - General 01/18/10 Correspondence Representative Relationship Specialty Start Date End Date Wojciech Treviño DO [address] [place] [address] PCP - General 01/18/10 Correspondence Representative Relationship Specialty Start Date End Date Wojciech Treviño DO [address] [place] [address] PCP - General 01/18/10 Correspondence Representative Relationship Specialty Start Date End Date Wojciech Treviño DO [address] [place] [address] PCP - General 01/18/10 Correspondence Representative Relationship Specialty Start Date End Date Wojciech Treviño DO [address] [place] [address] PCP - General 01/18/10 Correspondence Representative Relationship Specialty Start Date End Date Wojciech Treviño DO [address] [place] [address] PCP - General 01/18/10 Correspondence Representative Relationship Specialty Start Date End Date Wojciech Treviño DO [address] [place] [address] PCP - General 01/18/10 Correspondence Representative Relationship Specialty Start Date End Date Wojciech Treviño DO [address] [place] [address] PCP - General 01/18/10 Correspondence Representative Relationship Specialty Start Date End Date Wojciech Treviño DO [address] [place] [address] PCP - General 01/18/10 Correspondence Representative Relationship Specialty Start Date End Date Wojciech Treviño DO [address] [place] [address] PCP - General 01/18/10 Correspondence Representative Relationship Specialty Start Date End Date Wojciech Treviño DO [address] [place] [address] PCP - General 01/18/10 Correspondence Representative Relationship Specialty Start Date End Date Wojciech Treviño DO [address] [place] [address] PCP - General 01/27/19 Team Status: Inactive Member Role Status Dates Wojciech Treviño DO Primary Care Provider Active Start: September 21, 2023 End: September 21, 2023 Yuriy Conway MD Attending Provider, Referring Provider Active Start: September 21, 2023 End: September 21, 2023 Correspondence Representative Relationship Specialty Start Date End Date Wojciech Treviño DO [address] [place] [address] PCP - General 01/18/10 Correspondence Representative Relationship Specialty Start Date End Date Wojciech Treviño DO [address] [place] [address] PCP - General 01/18/10 Correspondence Representative Relationship Specialty Start Date End Date Wojciech Treviño DO [address] [place] [address] PCP - General 01/18/10 Correspondence Representative Relationship Specialty Start Date End Date Wojciech Treviño DO [address] [place] [address] PCP - General 01/18/10 Correspondence Representative Relationship Specialty Start Date End Date Wojciech Treviño DO [address] [place] [address] PCP - General 01/18/10 Correspondence Representative Relationship Specialty Start Date End Date Wojciech Treviño DO [address] [place] [address] PCP - General 01/18/10 Correspondence Representative Relationship Specialty Start Date End Date Wojciech Treviño DO [address] [place] [address] PCP - General 01/27/19 Yuriy Conway MD [address] [facility] [address] [place] [address] Consulting Physician Cardiology 09/17/23 Correspondence Representative Relationship Specialty Start Date End Date Wojciech Treviño DO [address] [place] [address] [address] [place] [address] PCP - General 01/27/19 Yuriy Conway MD [address] [facility] [address] [place] [address] Consulting Physician Cardiology 09/17/23 Correspondence Representative Relationship Specialty Start Date End Date Wojciech Treviño DO [address] [place] [address] PCP - General 01/27/19 Yuriy Conway MD [address] [facility] [address] [place] [address] Consulting Physician Cardiology 09/17/23 Team Status: Inactive Member Role Status Dates Wojciech Treviño DO Primary Care Provider Active Start: November 26, 2023 End: November 26, 2023 Yuriy Conway MD Attending Provider, Referring Provider Active Start: November 26, 2023 End: November 26, 2023 Correspondence Representative Relationship Specialty Start Date End Date Wojciech Treviño DO [address] [place] [address] PCP - General 01/18/10 Correspondence Representative Relationship Specialty Start Date End Date Wojciech Treviño DO [address] [place] [address] PCP - General 01/18/10 Correspondence Representative Relationship Specialty Start Date End Date Wojciech Treviño DO [address] [place] [address] PCP - General 01/18/10 Correspondence Representative Relationship Specialty Start Date End Date Wojciech Treviño DO [address] [place] [address] [place] [address] PCP - General 01/27/19 Yuriy Conway MD [address] [facility] 2, [address] [place] [address] Consulting Physician Cardiology 09/17/23 Correspondence Representative Relationship Specialty Start Date End Date Wojciech Treviño DO [address] [place] [address] PCP - General 01/18/10 Correspondence Representative Relationship Specialty Start Date End Date Wojciech Treviño DO [address] [place] [address] PCP - General 01/18/10 Correspondence Representative Relationship Specialty Start Date End Date Wojciech Treviño DO [address] [place] [address] PCP - General 01/18/10 Correspondence Representative Relationship Specialty Start Date End Date Wojciech Treviño DO [address] [place] [address] PCP - General 01/18/10 Correspondence Representative Relationship Specialty Start Date End Date Wojciech Treviño DO [address] [place] [address] PCP - General 01/18/10 Correspondence Representative Relationship Specialty Start Date End Date Wojciech Treviño DO [address] [place] [address] PCP - General 01/18/10 Correspondence Representative Relationship Specialty Start Date End Date Wojciech Treviño DO [address] [place] [address] PCP - General 01/18/10 Correspondence Representative Relationship Specialty Start Date End Date Wojciech Treviño DO [address] [place] [address] PCP - General 01/18/10 Correspondence Representative Relationship Specialty Start Date End Date Wojciech Treviño DO [address] [place] [address] PCP - General 01/18/10 Correspondence Representative Relationship Specialty Start Date End Date Wojciech Treviño DO [address] [place] [address] PCP - General 01/18/10 Correspondence Representative Relationship Specialty Start Date End Date Wojciech Treviño DO [address] [place] [address] PCP - General 01/18/10 Correspondence Representative Relationship Specialty Start Date End Date Wojciech Treviño DO [address] [place] [address] PCP - General 01/18/10 Correspondence Representative Relationship Specialty Start Date End Date Maxjason Wojciech Johnston MD [address] [place] [address] [place] [address] PCP - General Family Medicine 08/05/23 Correspondence Representative Relationship Specialty Start Date End Date Wojciech Treviño DO [address] [place] [address] PCP - General 01/18/10 Correspondence Representative Relationship Specialty Start Date End Date Wojciech Treviño DO [address] [place] [address] PCP - General Family Medicine 02/16/24 Correspondence Representative Relationship Specialty Start Date End Date Wojciech Treviño DO [address] [place] [address] PCP - General 01/18/10 Correspondence Representative Relationship Specialty Start Date End Date Wojciech Treviño DO [address] [place] [address] PCP - General 01/18/10 Correspondence Representative Relationship Specialty Start Date End Date Wojciech Treviño DO [address] [place] [address] PCP - General 01/18/10 Correspondence Representative Relationship Specialty Start Date End Date Wojciech Treviño DO [address] [place] [address] PCP - General 01/27/19 Yuriy Conway MD [address] [address], [address] [place] [address] Consulting Physician Cardiology 09/17/23 Correspondence Representative Relationship Specialty Start Date End Date Wojciech Treviño Francisco Javier [address], [place] [address] PCP - General 01/27/19 Yuriy Conway MD [facility] [address], [address] [place] [address] Consulting Physician Cardiology 09/17/23 Correspondence Representative Relationship Specialty Start Date End Date Wojciech Treviñowalter [address] [place] [address] PCP - General 01/18/10 Correspondence Representative Relationship Specialty Start Date End Date Wojciech Treviño DO [address], [place] [address] PCP - General 01/27/19 Yuriy Conway MD [facility] [address], [address] [place] [address] Consulting Physician Cardiology 09/17/23 Correspondence Representative Relationship Specialty Start Date End Date Wojciech Treviñowalter [address], [place] [address] PCP - General 01/27/19 Yuriy Conway MD [facility] [address], [address] [place] [address] Consulting Physician Cardiology 09/17/23 Correspondence Representative Relationship Specialty Start Date End Date Wojciech Treviño MD [address], [place] [address] PCP - General Family Medicine 08/05/23 Correspondence Representative Relationship Specialty Start Date End Date Wojciech Treviño MD [address] [place] [address] PCP - General Family Medicine 08/05/23 Correspondence Representative Relationship Specialty Start Date End Date Wojciech Treviño MD [address], [place] [address] PCP - General Family Medicine 08/05/23 Correspondence Representative Relationship Specialty Start Date End Date Wojciech Treviño MD [address] [place] [address] PCP - General Family Medicine 08/05/23 Correspondence Representative Relationship Specialty Start Date End Date Wojciech Treviño MD [address], [place] [address] PCP - General Family Medicine 08/05/23 Correspondence Representative Relationship Specialty Start Date End Date Wojciech Treviño DO PCP - General 01/27/19 Yuriy Conway MD [facility] [address], [address] [place] [address] Consulting Physician Cardiology 09/17/23 Correspondence Representative Relationship Specialty Start Date End Date Wojciech Treviño DO [address] [place] [address] PCP - General 01/18/10 Correspondence Representative Relationship Specialty Start Date End Date Wojciech Treviño DO [address] [place] [address] PCP - General 01/18/10 Correspondence Representative Relationship Specialty Start Date End Date Wojciech Treviño DO [address] [place] [address] PCP - General 01/18/10 Team Status: Inactive Member Role Status Dates Wojciech Treviño DO Primary Care Provider Active Start: August 29, 2024 End: August 29, 2024 Yuriy Conway MD Attending Provider Active St art: August 29, 2024 End: August 29, 2024 Team Status: Active Member Role Status Dates Wojciech MaxcynthiaDO molly Primary Care Provider Active Start: August 29, 2024 Yuriy Conway MD Other Provider Active Start: August 29, 2024 Dalila Moreno MD Attending Provider Active Start: August 29, 2024 Correspondence Representative Relationship Specialty Start Date End Date Wojciech Treviño DO [address] [place] [address] PCP - General 01/27/19 Yruiy Conway MD [facility] [address], [address] [place] [address] Consulting Physician Cardiology 09/17/23 Team Status: Inactive Member Role Status Dates Wojciech Maxjason DO Primary Care Provider Active Start: September 15, 2024 End: September 15, 2024 Yuriy Conway MD Attending Provider Active St art: September 15, 2024 End: September 15, 2024 Correspondence Representative Relationship Specialty Start Date End Date Wojciech Treviño DO [address], [place] [address] PCP - General Family Medicine 02/16/24 Team Status: Inactive Member Role Status Dates Wojciech Treviño DO Primary Care Provider Active Start: September 19, 2024 End: September 19, 2024 Yuriy Conway MD Attending Provider Active St art: September 19, 2024 End: September 19, 2024 Correspondence Representative Relationship Specialty Start Date End Date Cha Staley, AFRICAN HISTORY PROFESSOR-PLATE EMBOSSER [address] [place] [address] PCP - General Internal Medicine 04/15/23 Correspondence Representative Relationship Specialty Start Date End Date Cha Staley AFRICAN HISTORY PROFESSOR-PLATE EMBOSSER [address] [place] [address] PCP - General Internal Medicine 04/15/23 Correspondence Representative Relationship Specialty Start Date End Date Cha Staley AFRICAN HISTORY PROFESSOR-PLATE EMBOSSER [address] [place] [address] PCP - General Internal Medicine 04/15/23 Correspondence Representative Relationship Specialty Start Date End Date Cha Staley, AFRICAN HISTORY PROFESSOR-PLATE EMBOSSER [address] [facility] [place] [address] PCP - General Internal Medicine 04/15/23 Correspondence Representative Relationship Specialty Start Date End Date Wojciech Treviño DO [address], [place] [address] PCP - General Family Medicine 02/16/24 Correspondence Representative Relationship Specialty Start Date End Date Wojciech Treviño DO [address] [place] [address] PCP - General Family Medicine 02/16/24 Correspondence Representative Relationship Specialty Start Date End Date Wojciech Treviño DO [address] [place] [address] PCP - General Family Medicine 02/16/24 Correspondence Representative Relationship Specialty Start Date End Date Wojciech Treviño DO [address] [place] [address] PCP - General Family Medicine 02/16/24 Correspondence Representative Relationship Specialty Start Date End Date Wojciech Treviño DO [address] [place] [address] PCP - General Family Medicine 02/16/24 Correspondence Representative Relationship Specialty Start Date End Date Wojciech Treviño DO [address] [place] [address] PCP - General Family Medicine 02/16/24 Correspondence Representative Relationship Specialty Start Date End Date Wojciech Treviño DO [address] [place] [address] PCP - General Family Medicine 02/16/24 Correspondence Representative Relationship Specialty Start Date End Date Wojciech Treviño DO [address] [place] [address] PCP - General Family Medicine 02/16/24 Correspondence Representative Relationship Specialty Start Date End Date Wojciech Treviño DO [address] [place] [address] [address] [place] [address] PCP - General Family Medicine 02/16/24 Correspondence Representative Relationship Specialty Start Date End Date Wojciech Treviño DO [address] [place] [address] [address] [place] [address] PCP - General Family Medicine 02/16/24 Correspondence Representative Relationship Specialty Start Date End Date Wojciech Treviño DO [address] [place] [address] [address] [place] [address] PCP - General Family Medicine 02/16/24 Correspondence Representative Relationship Specialty Start Date End Date Wojciech Treviño DO [address] [place] [address] PCP - General 01/18/10 Correspondence Representative Relationship Specialty Start Date End Date Wojciech Treviño DO [address] [place] [address] PCP - General 01/18/10 Correspondence Representative Relationship Specialty Start Date End Date Wojciech Treviño DO [address] [place] [address] PCP - General 01/18/10 Correspondence Representative Relationship Specialty Start Date End Date Wojciech Treviño DO [address] [place] [address] PCP - General 01/18/10 Correspondence Representative Relationship Specialty Start Date End Date Wojciech Treviño DO [address] [place] [address] [address] [place] [address] PCP - General Family Medicine 02/16/24 Correspondence Representative Relationship Specialty Start Date End Date Wojciech Treviño DO [address] [place] [address] PCP - General 01/18/10 Correspondence Representative Relationship Specialty Start Date End Date Wojciech Treviño DO [address] [place] [address] PCP - General 01/18/10 Correspondence Representative Relationship Specialty Start Date End Date Wojciech Treviño DO [address] [place] [address] [address] [place] [address] PCP - General 01/27/19 Yuriy Conway MD [address] [place] [address], [address] [address] Consulting Physician Cardiology 09/17/23 Correspondence Representative Relationship Specialty Start Date End Date Wojciech Treviño DO [address] [place] [address] PCP - General 01/18/10 Correspondence Representative Relationship Specialty Start Date End Date Wojciech Treviño DO [address] [place] [address] PCP - General 01/18/10 Correspondence Representative Relationship Specialty Start Date End Date Wojciech Treviño DO [address] [place] [address] PCP - General 01/18/10 Correspondence Representative Relationship Specialty Start Date End Date Wojciech Treviño DO [address] [place] [address] PCP - General Family Medicine 02/16/24 Correspondence Representative Relationship Specialty Start Date End Date Wojciech Treviño DO [address] [place] [address] PCP - General 01/18/10 Correspondence Representative Relationship Specialty Start Date End Date Wojciech Treviño DO [address] [place] [address] PCP - General 01/18/10 Correspondence Representative Relationship Specialty Start Date End Date Wojciech Treviño DO [address] [place] [address] PCP - General 01/18/10 Correspondence Representative Relationship Specialty Start Date End Date Wojciech Treviño DO [address] [place] [address] PCP - General 01/18/10 Correspondence Representative Relationship Specialty Start Date End Date MaxWojciech mckeon MD PCP - General Family Medicine 08/05/23 Correspondence Representative Relationship Specialty Start Date End Date Wojciech Treviño DO [address] [place] [address] PCP - General 01/18/10 Correspondence Representative Relationship Specialty Start Date End Date Wojciech Treviño DO [address] [place] [address] PCP - General 01/18/10 Correspondence Representative Relationship Specialty Start Date End Date Wojciech Treviño DO [address] [place] [address] PCP - General 01/18/10 Correspondence Representative Relationship Specialty Start Date End Date Wojciech Treviño DO [address] [place] [address] PCP - General 01/18/10 Correspondence Representative Relationship Specialty Start Date End Date Wojciech Treviño DO [address] [place] [address] PCP - General 01/18/10 Correspondence Representative Relationship Specialty Start Date End Date Wojciech Treviño DO [address] [place] [address] PCP - General 01/18/10 Correspondence Representative Relationship Specialty Start Date End Date Wojciech Treviño DO [address] [place] [address] PCP - General 01/18/10 Correspondence Representative Relationship Specialty Start Date End Date Wojciech Treviño DO [address] [place] [address] PCP - General 01/18/10 Correspondence Representative Relationship Specialty Start Date End Date Wojciech Treviño DO [address] [place] [address] PCP - General 01/18/10 Correspondence Representative Relationship Specialty Start Date End Date Wojciech Treviño DO [address] [place] [address] PCP General 01/18/10 Correspondence Representative Relationship Specialty Start Date End Date Wojciech Treviño DO [address] [place] [address] [facility] General 01/18/10 Correspondence Representative Relationship Specialty Start Date End Date Wojciech Treviño DO [address] [place] [address] PCP - General 01/18/10 Reason for Visit (unrecogniz ed section and content) Reason Comments Infusion Specialty Diagnoses / Procedures Referred By Contac t Referred To Contact Diagnoses Systemic lupus erythematosus, unspecified SLE type, unspecified organ involvement status ([facility]) Evelin Abel MD [address] [place] [address] Rheu Infusion Main A[address] [address] Referral ID Status Reason Start Date Expiration Date V isits Requested Visits Authorized [id number] Authorized 12/21/2023 03/20/2024 99 99 Reason Comments SLE Specialty Diagnoses / Procedures Referred By Contac t Referred To Contact RHEUMATOLOGY INFUSION Diagnoses Systemic lupus erythematosus, unspecified M32.9 (ICD-10-CM) - Systemic lupus erythematosus, unspecified Procedures BELIMUMAB INJECTION THER/PROPH/DIAG IV INF, INIT THER/PROPH/DIAG IV INF ADDON IV BENLYSTA [id number] Evelin Abel MD [address] [place] [address] Rheu Infusion Main A50 [address] [place] [address] Referral ID Status Reason Start Date Expiration Date V isits Requested Visits Authorized [id number] Authorized 04/02/2020 08/16/2022 99 99 Reason Onset [...] MDM 60-74 MINUTES Julia Peña PA-C [address] [place] [address] Referral ID Status Reason Start Date Expiration Date V isits Requested Visits Authorized [id number] Closed PCP Requested Referral 05/12/2022 05/12/2023 1 1 Reason Comments Consult Face Sheet Reason Comments Radiology NM Specialty Diagnoses / Procedures Referred By Contac t Referred To Contact MOLECULAR & FUNCTIONAL IMAGING Diagnoses Hyperparathyroidism (HCC) Procedures NM PARATHYROID W SPECT/CT PARATHYROID IMAGING W/TOMOGRAPHIC SPECT & CT Monica Booker MD [address] [place] [address] Molecular & Functional Imaging [address] [place] [address] Referral ID Status Reason Start Date Expiration Date V isits Requested Visits Authorized [id number] Closed Auto-Generate d Referral 07/01/2022 07/31/2023 1 1 Reason Comments Radiology NM Specialty Diagnoses / Procedures Referred By Contac t Referred To Contact MOLECULAR & FUNCTIONAL IMAGING Diagnoses Hyperparathyroidism (HCC) Procedures NM PARATHYROID W SPECT/CT PARATHYROID IMAGING W/TOMOGRAPHIC SPECT & CT Monica Booker MD [address] [place] [address] Molecular & Functional Imaging [address] [place] [address] Reason Comments Thyroid Problem Specialty Diagnoses / Procedures Referred By Contac t Referred To Contact Diagnoses Hypercalcemia Hyperparathyroid (HCC) Procedures CONSULT TO ENDOCRINE SURGERY OFFICE/OUTPATIENT [facility] 60-74 MINUTES Lemuel Bejarano V, MD [address] [place] [address] Referral ID Status Reason Start Date Expiration Date V isits Requested Visits Authorized [id number] Closed PCP Requested Referral 06/11/2022 06/11/2023 1 1 Reason Comments Anesthesia Consult Hyperparathyroidism Reason Comments Orders Reason Comments Supervisor Public Health Nursing - Other Reason Comments Patient Update Reason [...] been sick or on any recent antibiotics. Specialty Diagnoses / Procedures Referred By Contac t Referred To Contact RHEUMATOLOGY INFUSION Diagnoses Systemic lupus erythematosus, unspecified M32.9 (ICD-10-CM) - Systemic lupus erythematosus, unspecified Procedures BELIMUMAB INJECTION THER/PROPH/DIAG IV INF, INIT THER/PROPH/DIAG IV INF ADDON IV BENLYSTA [id number] Evelin Abel MD [address] [place] [id number] Rheu Infusion Main [address] [place] [address] Reason Onset Date Comments Refill Request 09/21/2022 [...] Comments Foot Pain (Midfoot) left Reason Comments Annual Exam Specialty Diagnoses / Procedures Referred By Contac t Referred To Contact Diagnoses Paroxysmal atrial fibrillation ([facility]/HCC) Procedures ECG 12 Lead Yuriy Conway MD [address] [place] [address], [address] [address] Referral ID Status Reason Start Date Expiration Date V isits Requested Visits Authorized [id number] Authorized 09/17/2023 09/16/2024 1 1 Reason Comments Orders Reason Comments Callous Bilateral foot Specialty Diagnoses / Procedures Referred By Contac t Referred To Contact MR IMAGING Diagnoses Pancreatic cyst Procedures MRI PANC/JEANIE WO/W IVCON MRI ABDOMEN W/O & W/CONTRAST MATERIAL Rima Mcallister, ANTONIO.RESPIRATORY CLINICIAN [address] [place] [id number] Mr Imaging [facility] Referral ID Status Reason Start Date Expiration Date V isits Requested Visits Authorized [id number] Closed Auto-Generate d Referral 09/30/2023 10/29/2024 1 1 Reason Comments Follow-up DCC Specialty Diagnoses / Procedures Referred By Contac t Referred To Contact Cardiology Diagnoses Paroxysmal atrial fibrillation ([facility]/HCC) Procedures Follow Up In Cardiology Yuriy Conway MD [address] [place] [address] 2, [address] [address] Yuriy Conway MD [address] [place] [address] 2, [address] [address] Referral ID Status Reason Start Date Expiration Date V isits Requested Visits Authorized [id number] Authorized 09/17/2023 09/16/2024 1 1 Reason Comments EKG Visit Specialty Diagnoses / Procedures Referred By Contac t Referred To Contact Diagnoses Paroxysmal atrial fibrillation ([facility]) Procedures ECG 12 Lead Yuriy Conway MD [address] [facility] 2, [address] [address] Referral ID Status Reason Start Date Expiration Date V isits Requested Visits Authorized [id number] Authorized 10/29/2023 10/28/2024 1 1 Reason Comments Atrial Fibrillation Atrial Flutter Specialty Diagnoses / Procedures Referred By Contac t Referred To Contact Cardiology Diagnoses Paroxysmal atrial fibrillation ([facility]) Yuriy Conway MD [facility] 2, [address] [place] [address] [place] [address] [place] [address] Referral ID Status Reason Start Date Expiration Date Visits Requested Visits Authorized [id number] Authorized Specialty Services Required 10/29/2023 10/28/2024 1 1 Reason Comments Foot Pain (Midfoot) Bilateral foot pain Reason Onset Date Comments Refill Request 12/15/2023 Reason Comments Ulcerative Colitis Specialty Diagnoses / Procedures Referred By Contac t Referred To Contact Diagnoses Systemic lupus erythematosus, unspecified SLE type, unspecified organ involvement status ([facility]) Evelin Abel MD [address] [place] [address] Rheu Infusion Main [address] [address] Reason Comments New Patient Reason Onset Date Comments Refill Request 12/29/2023 Reason Comments Refill Request protonix Reason Onset Date Comments Refill Request 03/04/2024 Reason Comments Radio Gen A21 Specialty Diagnoses / Procedures Referred By Contac t Referred To Contact XR IMAGING Diagnoses Osteopenia of multiple sites S/P parathyroidectomy halfway (current) use of 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 Acute pain of left knee Procedures XR KNEE GENERAL 4V AP BOTH/PA BOTH/LAT/MERC LEFT RADIOLOGIC EXAM KNEE COMPLETE 4/MORE VIEWS Julia Ann PA-C [address] [id number] Xr Imaging [place] [address] Referral ID Status Reason Start Date Expiration Date V isits Requested Visits Authorized [id number] Closed Auto-Generate d Referral 03/15/2024 04/14/2025 1 1 Reason Comments Radiology US Specialty Diagnoses / Procedures Referred By Contac t Referred To Contact US IMAGING Diagnoses Membranous glomerulonephritis Procedures US KIDNEY/BLADDER US RETROPERITONEAL REAL TIME W/IMAGE COMPLETE Radu Salazar MD [address] [place] [address] Us Imaging [place] [address] Referral ID Status Reason Start Date Expiration Date V isits Requested Visits Authorized [id number] Closed Auto-Generate d Referral 12/29/2023 01/27/2025 1 1 Specialty Diagnoses / Procedures Referred By Contac t Referred To Contact Diagnoses Systemic lupus erythematosus, unspecified SLE type, unspecified organ involvement status ([facility]) Procedures BELIMUMAB INJECTION Evelin Abel MD [address] [place] [place] [phone] Rheu Infusion Main A50 [address] [place] [address] Referral ID Status Reason Start Date Expiration Date V isits Requested Visits Authorized [id number] Authorized 12/21/2023 08/16/2024 99 99 Reason Comments Radiology XR Reason Comments New Reason Comments Radiology XR Specialty Diagnoses / Procedures Referred By Contac t Referred To Contact XR IMAGING Diagnoses Left knee pain, unspecified chronicity Procedures XR KNEE SPECIFY 1V LEFT RADIOLOGIC EXAMINATION KNEE 1/2 VIEWS Alfredo [place] PA-C [address] [facility] [place] [address] Xr Imaging [id number] Referral ID Status Reason Start Date Expiration Date V isits Requested Visits Authorized [id number] Closed Auto-Generate d Referral 05/18/2024 06/16/2025 1 1 Reason Onset Date Comments re: PT 05/26/2024 Contacted re: [facility] PT she wanted to fu w/ Dr. Morales before continuing on. She stated per Morales no recommendation of anymore PT at this time; sx is needed due to [id number]. Reason Comments Med Refill Reason Comments Refill Request Pantoprazole 40mg Reason Comments Atrial Fibrillation Specialty Diagnoses / Procedures Referred By Contac t Referred To Contact Diagnoses Paroxysmal atrial fibrillation (Multi) Procedures ECG 12 lead (Clinic Performed) Christian Kaur, AFRICAN HISTORY PROFESSOR-RESPIRATORY CLINICIAN [address] [place] [address] Referral ID Status Reason Start Date Expiration Date V isits Requested Visits Authorized [id number] Authorized 02/15/2024 02/14/2025 1 1 Reason Comments Follow-up Atrial Fibrillation Referral ID Status Reason Start Date Expiration Date V isits Requested Visits Authorized [id number] Authorized 05/16/2024 05/16/2025 1 1 Specialty Diagnoses / Procedures Referred By Contac t Referred To Contact Physical Therapy Diagnoses Unilateral primary osteoarthritis, left knee Procedures RI PHYSICAL THERAPY EVALUATION LOW COMPLEX 20 MINS Wojciech Treviño MD [address] [facility] [place] [address] Kimmy Cerda PT Referral ID Status Reason Start Date Expiration Date V isits Requested Visits Authorized [id number] Authorized 04/05/2024 10/02/2024 30 30 Reason Onset Date Comments re: PT's this week 05/16/2024 She had [facility] d and lm noting this week she is busy w/ scheduled doctor appts and the 2 PT's scheduled she is unable to attend. She said Thursday she has a fu w/ referring provider and noted she'd contact after that w/ recommendation. Reason Comments Follow-up S/p watchman procedu re Specialty Diagnoses / Procedures Referred By Contac t Referred To Contact Cardiology Diagnoses Paroxysmal atrial fibrillation (Multi) Procedures Follow Up In Cardiology Yuriy Conway MD [address] [facility] 2, [address] [address] Phone: tel: fax: Yuriy Conway MD [address], [address] [address] Phone: tel: fax: Referral ID Status Reason Start Date Expiration Date V isits Requested Visits Authorized [id number] Pending Review 10/29/2023 10/28/2024 1 1 Reason Comments Appointment Ortho appt cancel/re schedule Reason Comments Cough Cold,congestion over a week Reason Comments MAW Reason Onset Date Comments Med Refill 03/21/2024 Reason Onset Date Comments Med Refill 03/30/2024 Reason Comments Follow-up Reason Onset Date Comments Results 04/16/2024 Reason Comments Follow-up 3-4 week Reason Onset Date Comments Med Refill 04/21/2024 Reason Onset Date Comments Med Refill 05/09/2024 Reason Comments Follow-up Left arm Reason Comments Cough Sore throat and ear ache-07/09 Sore Throat Reason Onset Date Comments Med Refill 07/18/2024 Specialty Diagnoses / Procedures Referred By Contac t Referred To Contact Diagnoses Systemic lupus erythematosus, unspecified SLE type, unspecified organ involvement status (HCC) Procedures BELIMUMAB INJECTION Evelin Abel MD [address] [place] [address] Phone: tel: fax: Rheumatology [address] [place] [address] Phone: tel: Reason Comments discuss 6 min walk Per cardialogist Reason Comments Follow Up Reason Comments knee injections left Reason Onset Date Comments Refill Request 11/30/2024 Reason Comments Follow-up 4 month, paroxysmal atrial fibrillation Specialty Diagnoses / Procedures Referred By Contac t Referred To Contact Cardiology Diagnoses Chronic diastolic heart failure Procedures Follow Up In Cardiology Yuriy Conway MD [address] [place] [address], [address] [address] Phone: tel: fax: Yuriy Conway MD [address] [facility] 2, [address] [address] Phone: tel: fax: Referral ID Status Reason Start Date Expiration Date V isits Requested Visits Authorized [id number] Authorized 08/05/2024 08/05/2025 1 1 Reason Comments Foot Swelling Reason Comments Foot Swelling And pain Reason Comments Appointment Xray Reason Comments Ankle Pain Right Swelling Right foot and ankle Foot Pain (Midfoot) Dorsal midfoot Specialty Diagnoses / Procedures Referred By Fariba rowley Referred To Contact XR IMAGING Diagnoses Pain in right foot Procedures XR FOOT GENERAL 3V AP/LAT/OBL RIGHT RADEX FOOT COMPLETE MINIMUM 3 VIEWS Beverly Franco, KHADIJAH [address] [place] [address] Phone: tel: fax: [place] [id number] Referral ID Status Reason Start Date Expiration Date V isits Requested Visits Authorized [id number] Closed Auto-Generate d Referral 12/19/2024 01/18/2026 1 1 Reason Comments Shortness of Breath Reason Comments Follow-up 6 month Reason Comments nose bleeds Started last year [facility] of 2023 approx x 2On and off through the happened more frequently Normally from the left. At times from both nostrils and will go down the back of her throat and out of her mouth. Fall this November 2024 hitting her head Facial pressure noted before they start, lasting 15 min to 30 min has used a clamp to stop bleeding. Endorses taking blood thinning medication for approx 20 yrs Reason Comments Fracture Closed nondisplaced fx of the navicular bone right foot Specialty Diagnoses / Procedures Referred By Fariba rowley Referred To Contact XR IMAGING Diagnoses Sprain of right foot, initial encounter Closed nondisplaced fracture of navicular bone of right foot, initial encounter Osteoarthritis of midtarsal joint of right foot Procedures XR FOOT GENERAL 3V AP/LAT/OBL RIGHT RADEX FOOT COMPLETE MINIMUM 3 VIEWS Beverly Franco, KHADIJAH [address] [place] [address] Phone: tel: fax: [place] [address] Referral ID Status Reason Start Date Expiration Date V isits Requested Visits Authorized [id number] Closed Auto-Generate d Referral 12/21/2024 01/20/2026 1 1 Reason Comments Follow Up Last nose bleeds not ed Thursday night and yesterday morning lasting approx 20-30 min large clot noted in her throat later after the nose bleed Head ache before it started Reason Comments Follow-up Patient here for POC Dr Hall, right foot surgery not yet scheduled. Specialty Diagnoses / Procedures Referred By Contgale t Referred To Contact Diagnoses Pre-operative clearance Procedures ECG 12 Lead Abisai Barraza, [employer] PROFESSOR-RESPIRATORY CLINICIAN [address] [facility] [address], [address] [place] [address] Phone: tel: fax: Referral ID Status Reason Start Date Expiration Date V isits Requested Visits Authorized [id number] Authorized 01/27/2025 01/27/2026 1 1 Reason Onset Date Comments re: PT 01/30/2025 Reason Comments PT Eval PT Discharge Specialty Diagnoses / Procedures Referred By Fariba t Referred To Contact [facility] Diagnoses Closed fracture of left foot, initial encounter Procedures CONSULT TO PHYSICAL THERAPY PHYSICAL THERAPY EVALUATION HIGH COMPLEX [place] [address] [place] [address] Phone: tel: fax: [facility] [address] [place] [address] Referral ID Status Reason Start Date Expiration Date Visits Requested Visits Authorized [id number] Authorized PCP Requested Referral Auto-Generate d Referral 01/23/2025 01/23/2026 99 99 Reason Comments Established Patient CT RESULTS Reason Comments Surgical Follow Up Reason Onset Date Comments Refill Request 02/21/2025 Reason Comments Preparations For Surgery Eliquis instruc tions Reason Comments Preparations For Surgery PACC Reason Comments Pre-Op Visit Reason Comments Procedure Infusion Reason Comments Received Outside Medical Records Reason Comments Post Op Goals (unrecognized section and content) Goals may be documented in a n alternate sectionGoals may be documented in an alternate sectionNot on filedocumented as of this encounterGoals may be documented in an alternate sectionGoals may be documented in an alternate sectionNot on filedocumented as of this encounterNot on filedocumented as of this encounterNot on filedocumented as of this encounterNot on filedocumented as of this encounterNot on filedocumented as of this encounterNot on filedocumented as of this encounterNot on filedocumented as of this encounterNot on filedocumented as of this encounterNot on filedocumented as of this encounterNot on filedocumented as of this encounterNot on filedocumented as of this encounterNot on filedocumented as of this encounterNot on filedocumented as of this encounterNot on filedocumented as of this encounterNot on filedocumented as of this encounterNot on filedocumented as of this encounterNot on filedocumented as of this encounterNot on filedocumented as of this encounterNot on filedocumented as of this encounterNot on filedocumented as of this encounterNot on filedocumented as of this encounterNot on filedocumented as of this encounterNot on filedocumented as of this encounterNot on filedocumented as of this encounterNot on filedocumented as of this encounterNot on filedocumented as of this encounterNot on filedocumented as of this encounterNot on filedocumented as of this encounterNot on filedocumented as of this encounterNot on filedocumented as of this encounterNot on filedocumented as of this encounterNot on filedocumented as of this encounter Inactive Administered Medications - up to 3 most recent administrations Administered Medications (un recognized section and content) Medication Order MAR Action Action Date Dose Rate Site acetaminophen 1,000 mg tab(s) (TYLENOL) 1,000 mg, ORAL, ONCE, 1 dose, On Thu10/01/23 at 0930 Given 10/01/2023 9:40 AM EST 1,000 mg belimumab 1,000 mg in NaCl 0.9% 250 mL (BENLYSTA) 1,000 mg, INTRAVENOUS, at 125 mL/hr, Administer over 120 Minutes, ONCE, 1 dose, On Thu10/01/23 at 0930, EXP: 1600 10/01/23 --- Protect From Light --- Total Volume: 250 mL Protect From Light New Bag/Syringe/Bottle 10/01/2023 10:17 AM EST 1,000 mg 125 mL/hr methylPREDNISolone sod succinate(PF) 60 mg injection (SOLU-Medrol) 60 mg, INTRAVENOUS, ONCE, 1 dose, On Thu10/01/23 at 0930 Given 10/01/2023 10:17 AM EST 60 mg Inactive Administered Medications - up to 3 most recent administrations Medication Order MAR Action Action Date Dose Rate Site ALPRAZolam 0.5 mg tab(s) (XANAX) 0.5 mg, ORAL, ONCE, 1 dose, On Thu10/23/23 at 1200 Given 10/23/2023 11:52 AM EST 0.5 mg PRN Active and Recently Administ ered Medications (unrecognized section and content) Medication Order 01/03/2024 01/04/2024 01/05/2024 heparin 1,000 unit/mL injection (CANCELED) As needed, Starting on Thu01/05/24 at 0947, Intraprocedure 0947 (Given - Provid er: Mi Finney RN - Comment: anticoagulation for left sided ablationverified by JITENDRA Pink)1009 (Given - Provider: Mi Finney RN - Comment: anticoagulation for left sided ablationverified by JITENDRA Pink) heparin 25,000 Units in dextrose 5% 250 mL (100 Units/mL) infusion (premix) (CANCELED) Continuous PRN, Starting on Thu01/05/24 at 0948, Intraprocedure 0948 (New Bag - Prov ider: Mi Fineny RN - Comment: anticoagulation for left sided ablationverified by JITENDRA Pink)1149 (Stopped - Provider: Mi Finney RN) sodium chloride 0.9% infusion (COMPLETED) Continuous PRN, Starting on Thu01/05/24 at 0941, Intraprocedure 0941 (New Bag - Prov ider: Mi Finney RN) PRN Medication Order 04/05/2024 04/06/2024 04/07/2024 bupivacaine PF (Marcaine) 0.5 % (5 mg/mL) injection (CANCELED) As needed, Starting on Theresa 04/07/24 at 1403, Intraprocedure 1403 (Given - Provid er: Jose Ogden RN) ceFAZolin (Ancef) injection (CANCELED) As needed, Starting on Theresa 04/07/24 at 1355, Intraprocedure 1355 (Given - Provid er: Larry Bedolla RN) fentaNYL PF (Sublimaze) injection (CANCELED) As needed, Starting on Theresa 04/07/24 at 1356, Intraprocedure 1356 (Given - Provid er: Jose Ogden RN)1408 (Given - Provider: Jose Ogden RN)1416 (Given - Provider: Jose Ogden RN) heparin 1,000 unit/mL injection (CANCELED) As needed, Starting on Theresa 04/07/24 at 1413, Intraprocedure 1413 (Given - Provid er: Larry Bedolla RN) iohexol (OMNIPaque) 350 mg iodine/mL solution (CANCELED) As needed, Starting on Theresa 04/07/24 at 1420, Intraprocedure 1420 (Given - Provid er: Jose Ogden RN - Comment: RUKHSANA) midazolam (Versed) injection (CANCELED) As needed, Starting on Theresa 04/07/24 at 1357, Intraprocedure 1357 (Given - Provid er: Jose Ogden RN)1408 (Given - Provider: Jose Ogden RN)1416 (Given - Provider: Jose Ogden RN) FOR RECORDS PERTAINING TO PATIENTS WHO ARE [...] BE BASED ON THE PRIMARY CLINICAL RECORDS. [facility]. provides no warranty or guarantee of the accuracy or completeness of information in this document.
[2025-04-25 22:15] LABS: C. Difficile PCR NEGATIVE
== END 2025-04-25 16:52 | disposition home or self-care (01) ==
LOC: LAB 16:51
PROVIDERS: PCP Family Medicine; Visit Provider Family Medicine
DX: R19.7 Diarrhea, unspecified (principal)
CPT/HCPCS: 87493

== ENCOUNTER 2025-07-25 08:28 | Inpatient (IN) | payer MEDICARE, OTHER, SELFPAY ==
--- OUTSIDE RECORDS SUMMARY | 2025-07-20 19:45 | XMS_ITS | Continuity of Care Document ---
Author Organization [facility] Address [address] [place] [address] Phone Care Team Providers Care Scrub Woman Name Role Phone Ki Wojciech FONTANA Primary Care Provider Yuriy Johns MD Other Provider Delfino Moreno MD Attending Provider Care Teams Patient Care Team Team Status: Active Member Role/Relationship Status Dates Wojciech Emerson DO Primary Care Provider Active Patient Care Team Team Status: Active Member Role/Relationship Status Dates Wojciech Emerson DO Primary Care Provider Active Start: July 20, 2025 Yuriy Johns MDOther ProviderActiveStart: July 20, 2025 Delfino Moreno MDAttending ProviderActiveStart: July 20, 2025 Chief Complaint and Reason for Visit Chief Complaint Admit Date I48.0 Z79.899 July 20, 2025 8 :49am Allergies, Adverse Reactions, Alerts Allergen Type Severity Reaction Last Updated Verified Status dofetilide Allergy Unknown Anaphylaxis November 26, 2023 12:07pm Yes Active prochlorperazine Allergy Unknown Unknown Reaction Ap ril 2023 12:07pm Yes Active Sulfa (Sulfonamide Antibiotics) Allergy Unknown Anaphylaxis November 26, 2023 12:07pm Yes Active tetanus and diphtheria toxoids Allergy Unknown Redness of Skin November 26, 2023 12:07pm Yes Active codeine Adverse Reaction Unknown Headache November 26, 2023 12:07pm Yes Active epinephrine Adverse Reaction Unknown Palpitations November 26, 2023 12:07pm Yes Active Iodinated Contrast Media Adverse Reaction Unknown Flushing November 26, 2023 12:07pm Yes Active Social History Smoking Status Status Start Date End Date Date of Observa tion Never smoked tobacco (finding) September 19, 2024 8:23am Observation Status Observation Response Date of Response Legal Sex Female (finding) Sex Assigned At BirthFemaleJuly 1954 Family History Relationship Condition Age at Onset Recorded Date/T myrtle mother Malignant neoplasm of colon Unknown HypertensionUnknownsisterHypertensionUnknownsisterHypertensionUnknownsister HypertensionUnknownsisterHypertensionUnknownfatherHypertensionUnknown Problems Active Problems Problem Diagnosis/Recorded Date Onset Date Stat us Urinary tract infection September 29, 2019 4:36pm Unk nown Active SLE (systemic lupus erythematosus) April 03, 2019 8 :08pm Unknown Active Acute alteration in mental status February 07, 2022 4:25 pm Unknown Active MONI (obstructive sleep apnea) February 08, 2022 12:20pm Unknown Active MONI (obstructive sleep apnea) April 03, 2019 8:08pm Unknown Active Elevated troponin I level June 20, 2019 12:01pm U nknown Active Acute encephalopathy February 09, 2022 10:51am Unknown Active Shortness of breath April 03, 2019 4:43pm Unknown Active Morbid obesity April 03, 2019 8:09pm Unknown A ctive Lupus September 30, 2019 9:36am Unknown A ctive CKD (chronic kidney disease) stage 3, GFR 30-59 ml/min April 04, 2019 10:06am Unknown Active CHF (congestive heart failure) April 03, 2019 8:19p m Unknown Active A-fib May 08, 2019 3:55pm Unknown Active Atrial fibrillation April 13, 2019 8:58pm Unknown Active Diarrhea May 08, 2019 3:55pm Unknown Active Dyspnea April 13, 2019 8:58pm Unknown Act sumeet Headache February 07, 2022 4:25pm Unknown Activ e Hyperbilirubinemia September 19, 2019 2:32pm Unknown Active HLD (hyperlipidemia) April 03, 2019 8:08pm Unknown Active Pancreatitis September 18, 2019 9:56pm Unknown Ac tive Elevated troponin June 19, 2019 2:53pm Unknown Active Morbid obesity due to excess calories June 19 5:01pm Unknown Active Acute metabolic encephalopathy May 08, 2019 3: 54pm Unknown Active Generalized weakness February 08, 2022 12:20pm Unknown Active Epigastric pain September 18, 2019 7:29pm Unknown Active Hypoxia May 08, 2019 2:11pm Unknown Active Ascending aortic aneurysm May 12, 2019 1:51pm Unknown Active Right-sided chest wall pain June 21, 2019 3:59pm Unknown Active Acute UTI February 07, 2022 4:25pm Unknown Activ e PAF (paroxysmal atrial fibrillation) April 03, 2019 8:09pm Unknown Active Chest pain June 19, 2019 2:53pm Unknown Ac tive Chest pain June 19, 2019 5:00pm Unknown Ac tive Chronic diastolic CHF (conge stive heart failure) September 18, 2019 7:30pm Unknown Active Acute on chronic diastolic (congestive) heart failure April 03, 2019 8:08pm Unknown Active Acute on chronic diastolic C HF (congestive heart failure) September 22, 2019 7:15pm Unknown Active Inflammatory bowel disease May 11, 2019 2:05pm Unknown Active HTN (hypertension) April 03, 2019 8:08pm Unknown Active Ulcerative colitis May 11, 2019 12:44pm Unknow n Active Hypotension April 04, 2019 10:06am Unknown Ac tive Obesity February 08, 2022 12:20pm Unknown Acti ve Atrial fibrillation with RVR June 19, 2019 5:01pm Unknown Active Cholelithiasis September 30, 2019 9:36am Unknown Active Acute pancreatitis September 18, 2019 5:39pm Unknown Active Non-sustained ventricular tachycardia April 07 1:05pm Unknown Active Hypokalemia September 18, 2019 5:39pm Unknown Ac tive Medications Medication Status Dose Units Route Directions Qty Days Refills S tart Date Stop Date End Date Reason(s) Instructions Adherence Celecoxib 200 mg Capsule Discontinued 200 MG PO Da rashard April 02, 2019 11:00pmSeptember 2018 1:58pmAtorvastatin 40 mg Tablet Rrdlby09ACQANzobwQwhrcb 2018 11:00pmUnknownCarvedilol 12.5 mg Tablet Zweuuvghlwex60.5MGPOTwice dailyAugust 2018 11:00pmAugust 2018 11:17amAmiodarone 200 mg EyxowaHvwvxeugtdoy003AOCGMpmwnRbalwc 2018 11:00pm May 12, 2019 1:58pmLisinopril 20 mg ScfiewHgohagatgoyw07EKOYYyogoRumicc 2018 11:00pmAugust 2018 11:17amAlendronate 70 mg TabletDiscontinued 70MGPOevery weekApril 02, 2019 11:00pmJune 2021 4:11pmVenlafaxine 150 mg Capsule,Extended Release 77ftFuletumfslgm029JYWPSrmfr at bedtimeunm [facility]2018 11:00pmApril 2023 9:47amAmlodipine 5 mg TxaikwVnqqbhjrgntz1CYENTjlzn April 02, 2019 11:00pmAugust 2018 11:17amAcetaminophen 500 mg Tablet Bdkfgnokcbba163MQORF3G as needed for Paingust 2018 11:00pmJune 19, 2019 11:46amMycophenolate Mofetil 500 mg SypqtqJxbpefhdboso2577WRHZGydnqjzNjcwia 2018 11:00pmApril 2023 9:47amWarfarin 5 mg LlivegPfaycuyvxphd7AEPP DailyApril 02, 2019 11:00pmSeptember 2018 10:49amMethylprednisolone Sodium Succ 40 mg Recon UyaeEhncputrnkcq19LHXGUh Directedunm [facility]2018 11:00pmSeptember 2018 1:58pmVitamin B Complex (B Complex 1) Tablet Qfegcslnkqck290QYWFRzqfgUygyif 2018 11:00pmApril 2023 9:48am Hydroxychloroquine 200 mg IwbezjXiciodwcrfrb733QSIEHkjdr dailygus2018 11:00pmApril 2023 12:45pmEzetimibe 10 mg UapvcqSsktvtuxphjk70RESMBrfam April 02, 2019 11:00pmFebruary 2019 11:09am Kzaqfqah-Fvx-Fx-Lycopen-Lutein (Centrum Silver) 0.4-300-250 mg-mcg-mcg Tablet Vdvzjg6KOMULKzbyeDwdazs 17th, 2019 11:00pmUnknownCalcium Carbonate-Vitamin D3 (Calcium 600 + D(3)) 600 mg calcium- 200 unit ZbphtjnCdkgtgwptaes3ENIBNCudwe April 02, 2019 11:00June 19, 2019 11:46amCholecalciferol (Vitamin D3) 2,000 unit JadgxyXconbk2509OSETBOJkaibPnjnlj 17th, 2019 11:00pmUnknownBelimumab 120 mg Recon ZexmXfdcxbjywkrb18kr/kgIVEVERY 3 MONTHSApril 02, 2019 11:00pm June 19, 2019 11:46amTurmeric 400 mg OtvriwgBfsggkcmtrrc986MPZIHwuweQghxxj 17th, 2019 11:00[facility]2018 11:48amFurosemide 40 mg tabletDiscontinued 40MGPODailyunm [facility]2018 11:00pm[facility]2018 11:17amMycophenolate Mofetil 500 mg LopvhhKwktizbmaune444DKJIBymfm [facility]2018 11:00pm September 18, 2019 3:31pmOmeprazole 40 mg capsule,delayed release(DR/EC) Ojkkxnrjpyjt43PUDFSnmxe769Yphxwx 22nd, 2019 11:00pmFormerly [facility] 2021 4:10pm Ondansetron 4 mg tablet,exznyqpxmlxwvoHvwkgaeshvic9ONATW2M as needed for nausea and zrlfwmbe4545Khyhts 22nd, 2019 11:[facility]2018 11:48amMetoprolol Succinate 50 mg Tablet Extended Release 24 GkEzdrhqkcrxfc38PVHYUzxvu879Gxywhy 23rd, 2019 11:00pmpt2018 10:52amMagnesium Oxide 400 mg (241.3 mg magnesium) TkjujgIlvozsvvaqfz621ZCPNZxqxk uvfhk248Qgplsj 23rd, 2019 11:00pm September 18, 2019 3:31pmFurosemide 20 mg XkzdgjKueposudmdky34ZVGPKqpom at 0800 300un[facility]2018 11:[facility]2018 11:46amAlprazolam (Xanax) 0.5 mg tabletDiscontinued0.5MGPODaily at bedtime as needed for shntcis05241Jjosbv 2018 11:00pmSeptember 2018 10:52amAnxiety disorder, unspecifiedAlendronate (Fosamax) 70 mg rmvyzdAxbadd22QGGHlevhr weekFebruary 2023 12:00amUnknown Cholestyramine (With Sugar) (Questran) 4 gram powder in packetDiscontinuedEACHPO Three times dailyFebruary 2023 12:00amApril 2023 9:44amColestipol (Colestid) 1 gram tajfbiOngssv9YCBHYgnpv dailyFebruary 2023 12:00amUnknown Flecainide 100 mg ccszrtYrrecheaesym915PONPP02ZRbitjohl 2023 12:00amApril 2023 9:48amMetoprolol Succinate 50 mg tablet extended release 24 hr Pykrhoqfrwuy958PBQJNipch at bedtimeApril 2023 11:00pmApril 2023 12:46pmAmiodarone 200 mg fivjdjFfyhomwqmmwi163BWRPDthnyKbqie 2023 11:00pm November 26, 2023 12:46pmAmiodarone 200 mg pmgllpUtoovintchox282UYNWVbqwj daily60 302April 2023 11:00pmFebruary 2024 8:19amHydroxychloroquine 200 mg uwmmduUwvfmpnqfnsl126QTTPYavhg39881Vidbh 2023 11:00pmFebruary 2024 8:19amVenlafaxine (Effexor Xr) 150 mg capsule,extended release 85nsRqiruq580HOTN DailyJanuary 2024 12:00amUnknownAmiodarone 200 mg xzxajfTdkpeh567CWYN BedtimeFebruary 2024 12:00amUnknownHydroxychloroquine 200 mg tabletActive 200MGPOTwice dailyFebruary 2024 12:00amUnknownMetoprolol Succinate 50 mg tablet extended release 24 pzLktgnfgqvzbu348NGADHunxx eveningSept2018 11:00pmNovember 2018 11:46amApixaban (Eliquis) 5 mg JnwbijZxncnu1EASP Twice dailySeptember 2018 11:00pmUnknownMetoprolol Succinate 50 mg tablet extended release 24 ydAzsseubexfbi85AHSRUqfuhBtindfwud 22nd, 2019 10:52am June 23, 2019 1:24pmDiltiazem Hcl 180 mg Capsule,Extended Release 24hr Dzparkbwggzq404CVRAKvxve951308Zigvcgwvl 25th, 2019 11:2018 11:46amAmiodarone 200 mg ZgjcbsCdukjvvzxbod547OXQKTfmmu daily with ybrih469233 May 11, 2019 11:00pmOctthe medical center 2018 2:08pmLoperamide 2 mg Capsule Xvomnicxrucp6CWAXP3J as needed for Fysxshvc959Blpxtucqq 25th, 2019 11:00pm June 19, 2019 11:46amMesalamine (Lialda) 1.2 gram Tablet,Delayed Release (Dr/Ec)Discontinued4.5HFDQSatdd213Ztspapysg 25th, 2019 11:00pmJune 19, 2019 11:45amPrednisone 20 mg ngqsvrSosyouomdzwu11ZRCVQftuw55455Cdrwgomnx 25th, 2019 11:00pmJune 19, 2019 11:45amAmiodarone 200 mg iyzxtyKcwrznuqyoas898UUXH Itcdi26290Blzaela 16th, 2019 11:002018 1:24pmCelecoxib 200 mg MjvthdnLygwxz692PEQVMfivq dailyJune 18, 2019 11:00pmUnknownAmlodipine 5 mg SycvgtCgrrxrgemtjc2VDWUXchpdYvyhwaho 2nd, 2019 11:00pmFebruary 2019 3:31pm Prednisone 20 mg dgdkjlJjkyevvdroka30QKINUifqfSjdxvbdq 3rd, 2019 11:45amFebruary 2019 11:10amMesalamine (Lialda) 1.2 gram tablet,delayed release (DR/EC) Active1.2GMPOFour times dailyJune 19, 2019 11:45amUnknownAmiodarone 200 mg VqowekXdyuvdgwbsgo963RCHXNcnub lrdex093123Nrzcgccm 7th, 2019 12:00amFebruary 2019 5:26pmMetoprolol Succinate 100 mg Tablet Extended Release 24 Hr Mvyjlwpsjhrf238ITRKYrpvo482273Okaitebi 7th, 2019 12:00amFebruary 2019 3:31pmTorsemide 20 mg ChkimvEvtaxbevgvxm97ZIIBAmmnhMocydltv 2019 12:00am September 30, 2019 11:09amLisinopril 20 mg JyhlxlAizphnpcaeff21WWCFTyzay September 18, 2019 12:00amFebruary 2019 11:09amSpironolactone 25 mg Tablet Qkempkznqauv04DGIVLmprkDkyjqwqc 2019 12:February 2019 11:09am Methylprednisolone Sodium Succ 40 mg Recon FylgKddjfmrukutf85JYBYJg Directed September 18, 2019 12:00February 2019 11:10amEVERY THREE MONTHSCalcium Carbonate-Vitamin D3 (Calcium 600 + D(3)) 600-125 mg-unit BuespqKjyizuxnuklq9GOW PODailyFebruary 2019 12:00amJune 2021 4:11pmBelimumab 120 mg Recon QimcIiwqen08sr/kgIVAs DirectedFebruary 2019 12:00amEVERY THREE MONTHS UnknownMetoprolol Succinate 100 mg tablet extended release 24 ieUepjkn617QGFW BedtimeFebruary 2019 3:31pmUnknownAmiodarone 200 mg afkewwXvjnblguilug107UF POTwice dailyFebruary 2019 5:26pmJune 2021 4:11pmFurosemide 40 mg BoagvbXqkmxb34OTIMWwcyk at 769916068Hlrutdfv 2019 12:00amUnknown Ondansetron 4 mg Tablet,QqwlcpfaaxppxtGqysldvqpeuu3OMGEHsnsr 6 hours as needed for Nausea And Fygozkgz280Oosjlqwa 2019 12:00amJune 2021 4:10pm Spironolactone 50 mg PycoxuMalrijisskoh33INJMIdsve46601Dosubmez 2019 12:00amFebruary 2023 1:55pmPrednisone 10 mg tabletDiscontinued0.ROUTE .NGARJVP045Occmgoqb 2019 12:00amJune 2021 4:01pm4 pills every morning for 2 days, then 3 pills every morning for 4 days, then 2 pills every morningfor 4 days, then go back to usual dose of prednisone every day after that.Cephalexin (Keflex) 500 mg rfhccjgFxcgogcjkktv942KTLXDxawb times September 30, 2019 12:00amJune 2021 4:25shOzulfo-Zyntpjxy-Lyxgxan (Pork) (Creon) 24,000-76,000 -120,000 unit Capsule,Delayed Release(Dr/Ec)Discontinued3 RTWMV0o/Day with bvyyb787318Fwarymyr 2019 12:00amJune 2021 4:11pm Further refills per GI Dr. CarrascoPrednisone 5 mg tabletDiscontinued0.ROUTE .AVBGBHO573Jzssbzpt 2019 12:00amJune 2021 4:01pmsecond part of prednisone taper: take 2 pills a day for 4 days, then 1 pill a day for 4 days, then 1 pill every other day x 2 doses, then stop.Sucralfate (Carafate) 100 mg/mL BasjxygctrGngotmqkuyuf94PJDGBkyt times dailyJune 2021 11:00pmApril 2023 9:47amPantoprazole 40 mg tablet,delayed release (DR/EC)Umvtvk82BZFEKnkny dailyJune 2021 11:00pmUnknownBifidobacterium Infantis (Align (B.Infantis)) 4 mg CgmdvbwWjushd3GDIWMtdcrPsgj 2021 11:00pmUnknownLevothyroxine 75 mcg ndafhmTjaxse12ZUJVRXowvaTdtn 2021 11:00pmUnknownFerrous Sulfate 325 mg (65 mg iron) PjhzvyYilrev947SNPTLcfznVmki 2021 11:00pmUnknownCholestyramine- Aspartame 4 gram GnphubPrbomzybjsrx6VYSESpnpo dailyJune 2021 11:00pmApril 2023 9:44amBuspirone 10 mg TojxmbSciagm75SLHZGwmdp dailyJune 2021 11:00pmUnknownCephalexin 500 mg tmejltlEeqjscqlwyxg777XYJQK1G5522Xapv 2021 11:00pmApril 2023 9:44am Immunizations Immunization Event Date Not Given Reason Dose Number [employer] Lot Number Reason(s) Given Vaccine Information Statement (VIS) Detail Administration Location Quadrivalent Influenza June 20, 2019 [id number] Advance Directives Advance Directive Response Recorded Date/ Time Advance Directives No June 18, 2017 3:00pm Insurance Providers Guarantor Rosa Bonilla Address [address] [place] [address]Oovxrpk Info.Home Phone: Coverage Status Update:2024 Payer Group Member ID Coverage Type Subscriber Relationship to Subscriber Effective Date Expiration Date MMO [id number] W Chad Id: [id number] [address] [place] [address] Home Phone: Email: [phone] Hospital [id number] W Chad Id: [id number] [address] [place] [address] Home Phone: Email: [phone] [id number] J Chad Id: [id number] [address] [place] [address] Home Phone: Email: NONESelfMedicare-IP Part A Only [id number] J Chad Id: [id number] [address] [place] [address] Home Phone: Email: NONESelfMedicare-OP No Part B [id number] J Chad Id: [id number] [address] [place] [address] Home Phone: Email: NONESelf Encounters Encounter Location(s) Arrival/Admit Date Discharge/Departure Date Discharge/Departure Disposition Provider(s) Non-patient / Non-visit -[facility] aaron 2024 8:49am Delfino Moreno MD
[2025-07-25] VITALS (36 sets, daily range): BP systolic 149–171; BP diastolic 53–113; PULSE 77–88; TEMP 36.4–36.7; O2SAT 93–100; BMI 39.3; BMI 42.5
--- NOTE | 2025-07-25 08:44 | XR_ITS ---
The [address] [address] Patient Name: JESUS WOLF MRN: [id number] date: 1955 Sex: F Assigned Patient Location: ER Current Patient Location: ED.MAIN Accession/Order Number: [id number] Exam Date: 07/25/2025 08:50 Report Date: 07/25/2025 09:08 At the request of: ALTHEA WALLER MD Procedure: XR chest 1V XR chest 1V 07/25/2025 8:57 AM SIGNS AND SYMPTOMS: ^sob PROTOCOL: Frontal radiograph of the chest COMPARISON: 09/28/2022 FINDINGS: The trachea is midline. There is cardiomegaly. There is perihilar vascular prominence with interstitial prominence. Fluid is noted along the minor fissure on the right. The bony thorax is intact. XR/XR chest 1V IMPRESSION: There are findings suggesting congestive heart failure, new when compared to the prior exam. Impression dictated by: Devyn Hampton M.D. 07/25/2025 9:08 AM [facility]ictation [facility] Electronically authenticated by: [id number] Y Date: 07/25/2025 09:08
--- NOTE | 2025-07-25 08:44 | ECG_ITS ---
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 Measurements Intervals [place] Rate: 79 P: -13 MI: 174 QRS: 66 QRSD: 106 T: 45 QT: 434 QTc: 469 Interpretive Statements 1100 Sinus rhythm 8304 Long QTc interval 9150 abnormal ECG Compared to ECG 11/10/2023 14:40:06 First degree AV block no longer present Intraventricular conduction delay no longer present Indeterminate axis no longer present Electronically Signed On 07-25-2025 20:01:21 EST by CATIE PARMAR M.D.
[2025-07-25] MEDS: IPRATROPIUM/ALBUTEROL SULFATE 3 ML AMPUL.NEB IH (09:15)
[2025-07-25 09:21] LABS: Hematocrit 39.0 % (36.0-48.0); Hemoglobin 13.1 g/dL (12.0-16.0); Immature Granulocytes Abs Auto 0.02 10^3/uL (0.00-0.03); Immature Granulocytes Pct Auto 0.3 % (0.0-0.5); Lymphocytes Absolute Auto 0.7 10^3/uL (1.2-3.8); Mean Corpuscular HGB Conc 33.6 g/dL (29.9-35.2); Mean Corpuscular Hemoglobin 32.8 pg (26.7-34.0); Mean Corpuscular Volume 97.7 fL (81.0-99.0); Platelet Count 194 10^3/uL (150-450); Red Blood Count 3.99 10^6/uL (4.20-5.40); White Blood Count 7.5 10^3/uL (4.0-11.0)
[2025-07-25 09:34] LABS: SARS-CoV-2 Ag NEGATIVE (NEGATIVE)
--- OUTSIDE RECORDS SUMMARY | 2025-07-25 09:35 | XMS_ITS | CCD ---
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 Name Role Phone YURIY CONWAY Attending Unavailable FURLONG, WOJCIECH Primary Care Unavailable YURIY CONWAY Attending Unavailable FURLONG, WOJCIECH Primary Care Unavailable Furlong, Wojciech Francisco Javier Primary Care Provider Furlong DO, Wojciech Francisco Javier Primary Care Provider Furcynthiang, DO Wojciech Primary Care Provider [phone] MD Chapincito Barraza Emergency Provider [phone] MD Hussain Cat Admit Provider MD Hussain Cat Attending Provider DO Rachelle Frazier Other Provider DO Gaetano Junior Emergency Provider [phone] Furlong DO, Wojciech Francisco Javier Primary Care Provider Furlong DO, Wojciech Francisco Javier Primary Care Provider Furlong DO, Wojciech Francisco Javier Primary Care Provider Furlong, Wojciech G Unavailable Unavailable Unavailable Sarika, Dr. Yan Attending Unavailable [id number], Dr. Yan Referring Unavailable Furlong, Wojciech Francisco Javier Primary Care Unavailab le Radrxk2c, Dr. Yan Attending Unavailable Bhvjeb0z, Dr. Yan Referring Unavailable Furlong, Wojciech Francisco Javier Primary Care Unavailab le Gxlegk9b, Dr. Yan Attending Unavailable Ofxvfr7j, Dr. Yan Referring Unavailable Furlong, Wojciech Francisco Javier Primary Care Unavailab le TIARRA, DR MIRTHA Mcghee Admitting Unavailabl e TIARRA, DR MIRTHA Mcghee Attending Unavailabl e FURLONG, DR WOJCIECH Mcghee Primary Care Unavailable HAY ., DR ROTH Consulting Unavailable YAROSH ., BEVERLY Consulting Unavailable MISC, DR RIVERS Consulting Unavailable MISC, DR RIVERS Attending Unavailable FURLONG, DR WOJCIECH Mcghee Primary Care Unavailable MISC, DR RIVERS Admitting Unavailable FURLONG, DR WOJCIECH Mcghee Primary Care Unavailable DEEPA ., MIKE Admitting Unavailable DEEPA ., MIKE Consulting Unavailable DEEPA Moss, MIKE Attending Unavailable JENA WEN Consulting Unavailable SENAIT KELSEY Consulting Unavailable Maxlong DO, Wojciech Francisco Javier Primary Care Provider Maxcynthiang, DO Jeffrey Primary Care Provider [phone] MD Yuriy Conway Attending Provider MD Yuriy Conway Referring Provider Yuriy Conway MD Unavailable [phone] Furcynthiang, DO Jeffrey Primary Care Provider MD Yuriy Conway Attending Provider MD Yuriy Conway Referring Provider MaxWojciech mckeon DO Primary Care Provider AUGUST YOUNG Attending Unavailable KIMMY CERDA Attending Unavailable WOJCIECH TREVIÑO Referring Unavailable AUGUST YOUNG Attending Unavailable Wojciech Treviño MD Primary Care Provider [phone] Wojciech Treviño DO Primary Care Provider Luis Alfredong Wojciech FONTANA Primary Care Provider Luis Alfredong Wojciech FONTANA Primary Care Provider Wojciech Treviño DO Primary Care Provider Yuriy Conway MD Attending Provider JUAN CHINO Attending Unavailable YURIY CONWAY Referring Unavailable MAXCYNTHIANG, WOJCIECH MCINTYRE Primary Care Unavailab JUAN Burden [...] WOJCIECH FRANCISCO JAVIER Primary Care Unavailab elisa MEDCHRISTIAN HERNANDEZ Attending Unavailable GILBERT, JUAN S [...] Care Unavailab le CONWAYYURIY MENDEZ Referring Unavailable FURLONG, WOJCIECH FRANCISCO JAVIER Primary Care Unavailab le Kuns [facility] Primary Care Unavailable Yuriy Conway Admitting Unavailable Yuriy Conway Attending Unavailable Yuriy Conway Referring Unavailable Yuriy Conway Admitting Unavailable ConwayYuriy Attending Unavailable Furlong, Wojciech Primary Care Unavailable Yuriy Conway Attending Unavailable ConwayYuriy Admitting Unavailable Furlong, Wojciech Primary Care Unavailable ConwayYuriy Attending Unavailable ConwayYuriy Admitting Unavailable Furlong, Wojciech Primary Care Unavailable Furlong DOWojciech Primary Care Provider Yuriy Conway MD Unavailable [phone] FURCYNTHIANG, WOJCIECH Mcghee Referring Unavailable KUNChristiano [facility] Primary Care Unavailable FURLONG, WOJCIECH Mcghee Attending Unavailable FURLONG, WOJCIECH Mcghee Referring Unavailable FURLONG, WOJCIECH Mcghee Primary Care Unavailable FURLONG, WOJCIECH Mcghee Attending Unavailable FURLONG, WOJCIECH Mcghee Referring Unavailable FURLONG, WOJCIECH Mcghee Primary Care Unavailable FURLONG, WOJCIECH Mcghee Attending Unavailable FURLONG, WOJCIECH Mcghee Referring Unavailable FURLONG, WOJCIECH Mcghee Primary Care Unavailable FURLONG, WOJCIECH Taz Attending Unavailable FURLONG, WOJCIECH Taz Referring Unavailable FURLONG, WOJCIECH Taz Primary Care Unavailable FURLONG, WOJCIECH Taz Attending Unavailable FURLONG, WOJCIECH Taz Referring Unavailable FURLONG, WOJCIECH Mcghee Primary Care Unavailable FURLONG, WOJCIECH Taz Attending Unavailable FURLONG, WOJCIECH Taz Referring Unavailable FURLONG, WOJCIECH Mcghee Primary Care Unavailable FURLONG, WOJCIECH Taz Attending [...] Unavailab le YURIY CONWAY Attending Unavailable CONWAYYURIY Referring Unavailable FURLONG, WOJCIECH FRANCISCO JAVIER Primary Care Unavailab ABISAI Casas Attending Unavailable FURLONG, WOJCIECH FRANCISCO JAVIER Primary Care Unavailab le AIDEN HALL Admitting Unavailable AIDEN HALL Attending Unavailable FURLONG, WOJCIECH FRANCISCO JAVIER Primary Care Unavailab ESPINOZA Carrasquillo Consulting FERCHO Howard Attending Unavailable FURLONG, WOJCIECH FRANCISCO JAVIER Primary Care Unavailab le FURLONG, WOJCIECH FRANCISCO JAVIER Primary Care Unavailab le Furlong DO Wojciech Taz Primary Care Provider BEVERLY FRANCO Referring Unavailable FURLONG, WOJCIECH FRANCISCO JAVIER Primary Care Unavailab le BEVERLY FRANCO Attending Unavailable FURLONG, WOJCIECH FRANCISCO JAVIER Primary Care Unavailab WILL Rebollar Attending Unavailable FURLONG, WOJCIECH FRANCISCO JAVIER Primary Care Unavailab DIONE Rodriguez Attending Unavailable FURLONG, WOJCIECH FRANCISCO JAVIER Primary Care Unavailab le SELF Referring Unavailable FURLONG, WOJCIECH FRANCISCO JAVIER Primary Care Unavailab le FURLONG, WOJCIECH FRANCISCO JAVIER Primary Care Unavailab le FERCHO PRATHER Referring Unavailable SELF Referring Unavailable FURLONG, WOJCIECH FRANCISCO JAVIER Primary Care Unavailab le ISABELAIDEN LOUIS Attending Unavailable FURLONG, WOJCIECH FRANCISCO JAVIER Primary Care Unavailab le ISABELADIEN JACKSON Referring Unavailable FURLONG, WOJCIECH FRANCISCO JAVIER Primary Care Unavailab le SELF Referring Unavailable FURLONG, WOJCIECH FRANCISCO JAVIER Primary Care Unavailab RADU Salazar Attending Unavailable FURLONG, WOJCIECH FRANCISCO JAVIER Primary Care Unavailab le AIDEN HALL Attending Unavailable FURLONG, WOJCIECH FRANCISCO JAVIER Primary Care Unavailab CURTIS [facility] Attending Unavailable CURTIS OGDEN Referring Unavailable FURLONG, WOJCIECH FRANCISCO JAVIER Primary Care Unavailab le ISABELAIDEN JACKSON Referring Unavailable FURLONG, WOJCIECH FRANCISCO JAVIER Primary Care Unavailab le FURLONG, WOJCIECH FRANCISCO JAVIER Primary Care Unavailab le FURLONG, WOJCIECH FRANCISCO JAVIER Primary Care Unavailab le FURLONG, WOJCIECH FRANCISCO JAVIER Primary Care Unavailab le SELF Referring Unavailable FERCHO PRATHER Referring Unavailable FURLONG, WOJCIECH FRANCISCO JAVIER Primary Care Unavailab le AIDEN HALL Attending Unavailable FURLONG, WOJCIECH FRANCISCO JAVIER Primary Care Unavailab le FURLONG, WOJCIECH FRANCISCO JAVIER Primary Care Unavailab le NADEGE MURPHY Attending Unavailable FURLONG, WOJCIECH FRANCISCO JAVIER Primary Care Unavailab le NADEGE MURPHY A Referring Unavailable ISABELAIDEN LOUIS Attending Unavailable FURLONG, WOJCIECH FRANCISCO JAVIER Primary Care Unavailab le FURLONG, WOJCIECH FRANCISCO JAVIER Primary Care Unavailab MARY Warren Attending Unavailable AIDEN HALL Referring Unavailable FURLONG, WOJCIECH FRANCISCO JAVIER Primary Care Unavailab le SELF Referring Unavailable FURLONG, WOJCIECH FRANCISCO JAVIER Primary Care Unavailab le FURLONG, WOJCIECH FRANCISCO JAVIER Primary Care Unavailab DIONE Rodriguez Attending Unavailable FURLONG, WOJCIECH FRANICSCO JAVIER Primary Care Unavailab le FURLONG, WOJCIECH FRANCISCO JAVIER Primary Care Unavailab le FERCHO PRATHER Attending Unavailable FURLONG, WOJCIECH FRANCISCO JAVIER Primary Care Unavailab le ISABELAIDEN LOUIS Referring Unavailable FURLONG, WOJCIECH FRANCISCO JAVIER Primary Care Unavailab CURTIS [facility] Attending Unavailable FURLONG, WOJCIECH FRANCISCO JAVIER Primary Care Unavailab le FURLONG, WOJCIECH FRANCISCO JAVIER Primary Care Unavailab BEVERLY Delgadillo Referring Unavailable [facility] Unavailab BEVERLY Delgadillo Attending Unavailable NADEGE MURPHY Attending Unavailable NADEGE MURPHY Referring Unavailable LUIS ALFREDO, WOJCIECH MCINTYRE Primary Care Unavailab RADU Salazra Referring Unavailable KAMILA, WOJCIECH MCINTYRE [facility] Unavailab le SELF Referring Unavailable LUIS ALFREDONG, WOJCIECH MCINTYRE Primary Care Unavailab le Allergies Allergy ClassificationReported Allergen(s)Allergy TypeDate of OnsetReaction(s) FacilityContrast Media (1 source)Contrast mediaSubstance Khoukxm36-11-3552Cfjqo: See CommentsBlanchard [facility] Health System [facility] Hospitaldofetilide (1 source)dofetilideDrug Uyqffbw82-49-5939Ystqv: See Comments, Anaphylaxis [facility] HospitalIodine (and Iodine containting drugs) (1 source)IodineDrug Wkhtjur70-73-1805Rmocm: See CommentsBlanchard Valley Health System [facility] HospitalOpioid Agonists (1 source)CodeineDrug Ogymoqn38-16-5825Hhuxr: See [facility] Prochlorperazine (1 source)ProchlorperazineDrug Xxoanun18-54-0470Wuahq: See CommentsTriHealthulfonamides (antibiotic) (1 source)Sulfonamides (Antibiotic)Drug Ejwqgfu09-49-8328XrfydumkHsffvopxb Clinic (20 sources)Codeine; Translations: [codeine]Drug Gnprzgs55-66-7148Nkkgg: See Comments, Unknown, Headache, OtherBlanchard Valley Health System [facility] (20 sources)Contrast media; Translations: [CONTRAST DYE]Drug Shnpiqk12-75-1848 Other: See Comments, UnknownBlanchard Valley Health System [facility] (20 sources)dofetilide; Translations: [Tikosyn]Drug Tqlqexp83-73-7315Biwyd: See Comments, Anaphylaxis, Unknown, GI Disturbance, Palpitations, GI Upset, GI intolerance, OtherBlanchard Valley Health System [facility] (20 sources)Prochlorperazine; Translations: [PROCHLORPERAZINE EDISYLATE]Drug Ntsmeyc11-28-6163Pfqai: See CommentsBlanchard Valley Health System [facility] (20 sources)Sulfonamides (Antibiotic); Translations: [SULFA (SULFONAMIDE ANTIBIOTICS)]Drug Erslmaoactv58-47-9858Kbvelnlj, Swelling, Nausea/vomiting, Unknown, GI intolerance, AnaphylaxisBlanchard Valley Health System [facility] (16 sources)Tetanus Vaccines And Toxoid; Translations: [TETANUS VACCINES AND TOXOID]Drug Efvncmdcgjn34-68-3114Tvjsf: See CommentsBlanchard Valley Health System [facility] (20 sources)EPINEPHrine; Translations: [epinephrine]Drug Lquhkoz63-18-3212 Unknown, PalpThe [facility] (20 sources)Prochlorperazine; Translations: [PROCHLORPERAZINE]Drug Allergy 63-68-2553WrdxfiqSt. John of God Hospital (9 sources)tetanus and diphtheria toxoids; Translations: [tetanus and diphtheria toxoids]Allergy to ravpadajo03-60-3525Lrvgmtv [facility] (17 sources)Iodinated Contrast Media; Translations: [IODINATED CONTRAST MEDIA] Propensity to adverse hsvlkdqus95-61-5361FabghuowYaypnymfyMercy Health – The Jewish Hospital (20 sources)Tetanus Vaccines And ToxoidDrug Caojpbehrat28-55-0337Cruqw: See Comments, Unknown, [facility] (8 sources)Contrast mediaAllergy to substance (finding)[place] [address] DO Work Phone: (8 sources)diphtheria toxoid vaccine, inactivated / tetanus toxoid vaccine, inactivated; Translations: [Tetanus-Diphtheria Toxoids Td SUSP]Drug AllergyOther [place] [address] DO Work Phone: (8 sources)Prochlorperazine; Translations: [Compazine]Drug AllergyRob[place] [address] DO Work Phone: (8 sources)Sulfamethoxazole; Translations: [sulfa]Drug AllergyRob[place] [address] DO Work Phone: (8 sources)Sulfonamides (Antibiotic); Translations: [Sulfa Antibiotics]Allergy to drug (finding)Swelling, [place]omitingRob[place] [address] DO Work Phone: (8 sources)Tdap; Translations: [Tdap]Allergy to drug (finding)[place] [address] DO Work Phone: (1 source)AllopurinolDrug AllergyThe [facility] (1 source)CodeineDrug AllergyThe [facility] (1 source)dofetilideDrug AllergyThe [facility] (1 source)Iodine (And Iodine Containting Drugs)Drug allergy (disorder)[facility] (1 source)ProchlorperazineDrug AllergyThe [facility] Health [facility] (20 sources)Iodine; Translations: [IODINE]Drug Rjxfsob15-25-9348Hubwopa, Other: See CommentsBlanchard Valley Health System [facility] (20 sources)acellular pertussis vaccine, inactivated / diphtheria toxoid vaccine, inactivated / tetanus toxoid vaccine, inactivated; Translations: [DIPHTH,PERTUS(ACELL),TETANUS]Drug Fuhyiqt46-82-0026Crnfuzf, Other (See Comments)[facility] (7 sources)dofetilideDrug Snbeequ79-26-4830Cbujtredhzx, GI intolerance, Other, Palpitations, UnknownNOMS Healthcare (7 sources)Diphth-Acell Pertussis-TetanusDrug Lkzluxn46-45-9206VcfdxtnRCPC Healthcare (7 sources)OtherPropensity to adverse ygqtemxkw73-88-9590LlsdvifPLOK Healthcare (20 sources)diphtheria toxoid vaccine, inactivated / tetanus toxoid vaccine, inactivated; Translations: [TETANUS AND DIPHTHER. TOX (PF)]Drug Allergy 03-58-5819UmygZxaUugkgkUniversity Hospitals St. [facility] (20 sources)Diphtheria,Pertussis(Acell),Tetanus Pedi Vaccine; Translations: [DIPHTHERIA,PERTUSSIS(ACELL),TETANUS PEDI VACCINE]Propensity to adverse reactions to mcds94-66-2995Rdwdd (See Comments)[facility] (1 source)CodeineDrug Oigwxjv57-56-3573WwjphcenkSouthern [facility] (1 source)dofetilideDrug Vruxrzi81-10-9612HkiqbbmzdSouthern [facility] (1 source)Sulfonamides (Antibiotic)Drug allergy (disorder)01-65-2404LtfzfohumSouthern [facility] Medical Center Repository Medications Current Medications MedicationDrug Class(es)DatesSig (Normalized)Sig (Original)[id number] 200 actuat albuterol 0.09 mg/actuat metered dose inhaler (7 sources)beta2-Adrenergic AgonistStart: 12-69-3779yzfe 2 puff(s) by mouth four times dailyalbuterol HFA 90 mcg/act inhaler inhale 2 puffs by mouth and INTO THE LUNGS four times a day 10/30/2022 Activealendronic acid 70 mg oral tablet (20 sources)BisphosphonateStart: 05-12-2022 End: 38-47-3268ywxnrctrxat (FOSAMAX) 70 mg tablet 05/12/2022 ActiveStart: 04-03-2019 End: 42-98-3869jvmm 1 tablet by mouth every weekAlendronate 70 mg Tablet Discontinued 70 MG PO every week April 02, 2019 11:00pm February 0724:11pm take 1 tablet by mouth in the morningalendronate (Fosamax) 70 mg tablet Take 1 tablet (70 mg) by mouth every 7 days. On Thursday. Take in the morning with a full glass of water, on an empty stomach, and do not take anything else by mouth or lie down for the next 30 min. ActiveComment on above:Take 1 tablet by mouth one time a week. In the morning with a full glass of water, on an empty stomach. Do not take anything else by mouth or lie down for the next 30 minutes.alendronic acid 70 mg / cholecalciferol 2800 unt oral tablet (20 sources)Bisphosphonate, Vitamin Dtake 70-2800 tablets by mouth every week alendronate-cholecalciferol (Fosamax Plus D) 70-2800 MG-UNIT tablet Take 1 tablet by mouth once a week Active End: 24-97-2113srwe 1 tablet by mouth in the morningalendronate-vitamin D3 (FOSAMAX PLUS D) 70 mg- 2,800 unit per tablet Take 1 tablet by mouth every 7 days. In a.m. with water on empty stomach, nothing else by mouth and remain upright for 30min 11/28/2024 Discontinued (Duplicate order)amiodarone hydrochloride 200 mg oral tablet (20 sources)AntiarrhythmicStart: 12-07-2024 End: 92-82-2811kwpf 1.5 tablets by mouth once dailyamiodarone (Pacerone) 200 mg tablet Indications: Atypical atrial flutter Take 1.5 tablets (300 mg) by mouth once daily. 135 tablet 3 12/07/2024 12/07/2025 ActiveStart: 07-08-2024 End: 73-80-4170fjsx 2 tablets by mouth once dailyamiodarone (Pacerone) 200 mg tablet Indications: Atypical atrial flutter Take 2 tablets by mouth once daily 180 tablet 10/27/2024 12/07/2024 Discontinued (Reorder)Start: 11-28-2023 amiodarone (PACERONE) 200 mg tablet Take 1 tablet (200 mg total) by mouth. 05/07/2024 ActiveStart: 47-12-2389etdkqdtwtg (PACERONE) 200 mg tablet Take 300 mg by mouth once daily. Patient reports 300 mg by mouth daily 11/28/2023 Active Start: 11-26-2023 End: 37-75-7026duov 1 tablet by mouth twice dailyAmiodarone 200 mg tablet Discontinued 200 MG PO Twice daily 60 November 25, 2023 11:00pm 2024 8:19amStart: 11-24-2023 End: 46-59-2617eanm 1 tablet by mouth once dailyAmiodarone 200 mg tablet Discontinued 200 MG PO Daily November 24, 2023 11:00pm November 26, 2023 12:46pm Start: 11-19-2023 End: 47-32-1853wwpqsdpkay (Pacerone) 400 mg tablet Indications: Atypical atrial flutter (CMS/HCC) Take 1 tablet (400 mg) by mouth 2 times a day for 5 days. Do not start before November 19, 2023. 10 tablet 0 11/19/2023 11/24/2023 ActiveStart: 06-23-2019 End: 43-33-0757rhee 1 tablet by mouth twice dailyAmiodarone 200 mg tablet Discontinued 200 MG PO Twice daily September 18, 2019 5:26pm February 07, 2022 4:11pmStart: 06-02-2019 End: 47-19-2188ihrf 1 tablet by mouth once dailyAmiodarone 200 mg tablet Discontinued 200 MG PO Daily 30 June 01, 2019 11:00pm June 23, 2019 1:24pmStart: 05-12-2019 End: 99-03-6352ilsc 1 tablet by mouth twice daily at mealtimeAmiodarone 200 mg Tablet Discontinued 200 MG PO Twice daily with meals 60 May 11, 2019 11:00pm June 02, 2019 2:08pmStart: 04-03-2019 End: 81-44-1063gqih 1 tablet by mouth once dailyAmiodarone 200 mg Tablet Discontinued 200 MG PO Daily April 02, 2019 11:00pm May 12, 2019 1:58pmamoxicillin 875 mg oral tablet (20 sources)Penicillin-class AntibacterialStart: 07-18-2024 End: 72-99-3927cmtk 1 tablet by mouth in the morning, then take 1 tablet by mouth at bedtimeamoxicillin (AMOXIL) 875 mg tablet Take 1 tablet (875 mg total) by mouth in the morning and 1 tablet (875 mg total) before bedtime. Do all this for 7 days. 14 tablet 07/18/2024 07/25/2024 ActiveStart: 06-11-2023 End: 15-84-4788xnsehajpuwv (AMOXIL) 500 mg capsule Take 4 tablets one hour prior to dental procedure 4 capsule 3 06/11/2023 09/30/2024 Discontinued (Discontinued by Patient)Start: 02-11-2021 End: 66-32-4345Uhsuirujctp 500 mg tablet Take 4 tablets by mouth 1 hour prior to procedure and 2 tablets by mouth 6 hours after procedure 6 tablet 4 02/11/2021 01/01/2022 Discontinued (Other)Comment on above:Take 4 tablets by mouth 1 hour prior to procedure and 2 tablets by mouth 6 hours after procedureTake 4 tablets one hour prior to dental procedureapixaban 5 mg oral tablet (20 sources)Factor Xa InhibitorStart: 05-08-2019 End: 33-75-8325sjdf 1 tablet by mouth in the morning, then take 1 tablet by mouth at bedtimeapixaban (ELIQUIS) 5 mg tablet Take 1 tablet (5 mg total) by mouth in the morning and 1 tablet (5 mg total) before bedtime. 60 tablet 5 05/09/2024 ActiveComment on above:Take 1 tablet by mouth twice daily.Take 5 mg by mouth twice daily.atorvastatin 40 mg oral tablet (20 sources)HMG-CoA Reductase InhibitorStart: 04-03-2019 End: 37-81-6703xpni 1 tablet by mouth once dailyatorvastatin (LIPITOR) 40 mg tablet Indications: Mixed hyperlipidemia Take 1 tablet by mouth once daily. 90 tablet 3 09/13/2021 ActiveComment on above:Take 1 tablet by mouth once daily. azithromycin 250 mg oral tablet (1 source)Macrolide AntimicrobialStart: 09-22-2023 End: 75-72-9617ghjf 1 tablet by mouth in the morning, then take 2 tablets by mouth once daily, then take 1 tablet by mouth once dailyazithromycin (ZITHROMAX) 250 mg tablet Indications: Subacute maxillary sinusitis Take 1 tablet (250mg total) by mouth in the morning for 5 days. Take 2 tablets the first day, then 1 tablet daily for4 days.. 6 tablet 0 09/22/2023 09/27/2023 ActiveB Complex Vitamins (B COMPLEX 1 PO) (7 sources)B Complex Vitamins (B COMPLEX 1 PO) Orally Activebelimumab 120 mg injection (20 sources)B Lymphocyte Stimulator-specific InhibitorStart: 92-01-4198izdq 120 mg intravenously every three monthsBelimumab 120 mg Recon Soln Active 10 mg/kg IV As Directed September 18, 2019 12:00am EVERY THREE MONTHSStart: 09-18-2019 take 1 mg intravenously every three monthsBelimumab Active 10 mg/kg IV As Directed September 18, 2019 1:00am EVERY THREE MONTHSStart: 88-87-4195invyqntab (Benlysta) 120 mg recon soln IV injection Infuse into a venous catheter every 8 (eight) weeks. 04/25/2019 ActiveStart: 04-03-2019 End: 80-95-4470odcx 120 mg intravenously every three monthsBelimumab 120 mg Recon Soln Discontinued 10 mg/kg IV EVERY 3 MONTHS April 02, 2019 11:00pm June 19, 2019 11:46amStart: 04-03-2019 End: 19-75-5535affo 1 mg intravenously every three monthsBelimumab Discontinued 10 mg/kg IV EVERY 3 MONTHS April 03, 2019 12:00am June 19, 2019 12:46pm Start: 06-48-9202ayjubhmat (BENLYSTA) 80 mg/mL recon soln Infuse 1.5 mL (120 mg total) into a venous catheter every 60 (sixty) days. 12/25/2016 Activebelimumab (BENLYSTA INTRAVENOUS) Inject intravenously. Patient reports she receives infusion every 3 months Activebelimumab (BENLYSTA INTRAVENOUS) Inject intravenously. Patient reports she receives infusion every 3 months 0 Suspended belimumab (BENLYSTA INTRAVENOUS) Inject intravenously. Patient reports she receives infusion every 3 months 0 ActiveComment on above:Inject intravenously. Patient reports she receives infusion every 3 monthsbifidobacterium infantis 4 mg oral capsule (20 sources)Start: 78-62-8141nqlr 1 capsule by mouth once dailyBifidobacterium Infantis (Align (B.Infantis)) 4 mg Capsule Active 4 MG PO Daily February 06, 2022 11:00pmBifidobacterium infantis (ALIGN) 10.5 mg (10 million cell) tablet,chewable ActiveBifidobacterium infantis (ALIGN) 10.5 mg (10 million cell) tablet,chewable Align one daily ActiveBifidobacterium infantis (ALIGN ORAL) Take by mouth once daily. Activetake 1 tablet by mouth once dailyBifidobacterium infantis (ALIGN ORAL) Take 1 tablet by mouth once daily. Activetake 1 tablet by mouth once dailyBifidobacterium infantis (ALIGN ORAL) Take 1 tablet by mouth once daily. 0 ActiveAlign CAPS USE DIRECTED. Quantity: 0 Refills: 0 Ordered: 01-Aug-2022 DO ActiveBifidobacterium infantis (ALIGN ORAL) Take by mouth once daily. 0 SuspendedBifidobacterium infantis (ALIGN ORAL) Take by mouth once daily. 0 ActiveComment on above:Take by mouth once daily. busPIRone hydrochloride 5 mg oral tablet (20 sources)Start: 33-30-6480zjiz 1 tablet by mouth twice dailybusPIRone (Buspar) 5 mg tablet Take 1 tablet (5 mg) by mouth 2 times a day. 05/01/2024 ActiveStart: 03-30-2024 End: 08-25-0844wuwl 1 tablet by mouth three times dailybusPIRone (BUSPAR) 5 mg tablet TAKE 1 TABLET BY MOUTH THREE TIMES DAILY 90 tablet 5 03/22/2025 Active Start: 05-15-2020 End: 14-27-9521dqxb 1 tablet by mouth twice dailybusPIRone (BUSPAR) 10 mg tablet Take 10 mg by mouth two times a day. 05/15/2020 ActiveStart: 16-23-2827oukt 1 tablet by mouth once daily at bedtimeBuspirone 10 mg Tablet Active 10 MG PO Daily at bedtime February 06, 2022 11:00pmComment on above:Take 10 mg by mouth daily at bedtime. calcium carbonate 1250 mg / cholecalciferol 200 unt oral tablet (20 sources)Vitamin DStart: 01-75-9543ynyp 1 tablet by mouth in the morning, then take 1 tablet by mouth once daily, then take 1 tablet by mouth once at bedtimecalcium carbonate-vitamin D3 (OSCAL 500 + D) 500 mg(1,250mg) -200 units per tablet Take 1 tablet bymouth in the morning and 1 tablet at noon and 1 tablet before bedtime. 08/27/2022 ActiveStart: 73-93-0952zzht 1 tablet by mouth three times iyzibgarxyal-tpkuqtxtc-aetnlxh D3 500 mg-5 mcg (200 unit) per tablet Take 1 tablet by mouth three times daily. 08/27/2022 ActiveStart: 26-65-4807nlyh 1 tablet by mouth once in the morning, then take 1 tablet by mouth once, then take 1 tablet bymouth in the eveningCalcium Carbonate-Vitamin D (Oyster Shell Calcium/D) 500-5 MG-MCG tablet Take 1 tablet by mouth in the morning and 1 tablet at noon and 1 tablet in the evening. 08/27/2022 ActiveStart: 09-18-2019 End: 61-18-8211ypcd 2 tablets by mouth once dailyCalcium Carbonate-Vitamin D3 (Calcium 600 + D(3)) 600-125 mg-unit Tablet Discontinued 2 TAB PO Daily September 18, 2019 4:21pm February 07, 2022 5:11pmStart: 04-03-2019 End: 91-36-5686hxyf 1 tablet by mouth once dailyCalcium Carbonate-Vitamin D3 (Calcium 600 + D(3)) 600 mg calcium- 200 unit Capsule Discontinued 1 TAB PO Daily April 02, 2019 11:00pm June 19, 2019 11:46amComment on above:Take 1 tablet by mouth three times daily.celecoxib 200 mg oral capsule (20 sources)Nonsteroidal Anti-inflammatory DrugStart: 09-16-2024 End: 66-89-3717rewq 1 capsule by mouth every twelve hours as needed for pain celecoxib (CeleBREX) 200 mg capsule Take 1 capsule (200 mg total) by mouth every 12 (twelve) hours as needed for pain. TAKE 1 CAPSULE BY MOUTH IN THE MORNING AND 1 CAPSULE BEFORE BEDTIME 180 capsule 05/02/2025 ActiveStart: 05-28-2023 End: 77-91-3421qmed 1 capsule by mouth in the morning, then take 1 capsule by mouth at bedtime, then take 1 capsule by mouth in the morning, then take 1 capsule by mouth at bedtimecelecoxib (CeleBREX) 200 mg capsule Take 1 capsule (200 mg total) by mouth in the morning and 1 capsule (200 mg total) before bedtime. TAKE 1 CAPSULE BY MOUTH IN THE MORNING AND 1 CAPSULE BEFORE BEDTIME. 180 capsule 1 03/21/2024 ActiveStart: 04-25-2019 End: 27-65-5317hnfg 1 capsule by mouth twice dailycelecoxib (CeleBREX) 200 mg capsule Take 1 capsule (200 mg) by mouth 2 times a day. 04/25/2019 ActiveStart: 04-03-2019 End: 98-98-0984uzht 1 capsule by mouth once dailyCelecoxib 200 mg Capsule Discontinued 200 MG PO Daily April 02, 2019 11:00pm May 12, 2019 1:58pmComment on above:Take 200 mg by mouth twice daily.Take 200 mg by mouth once daily.cholecalciferol 0.05 mg oral capsule (20 sources)Vitamin DStart: 07-88-3703mzqi 1 capsule by mouth once dailyVitamin D3 50 MCG (2000 UT) Oral Capsule TAKE 1 CAPSULE Daily Quantity: 0 Refills: 0 Ordered: 25-Apr-2019 DO Start : 25-Apr-2019 ActiveStart: 54-44-4604advx 3 capsules by mouth once dailycholecalciferol (Vitamin D-3) 50 mcg (2,000 unit) capsule Take 3 capsules (150 mcg) by mouth once daily. 04/25/2019 ActiveStart: 18-38-1748wrim 1 capsule by mouth once dailycholecalciferol (Vitamin D-3) 50 mcg (2,000 unit) capsule Take 1 capsule (50 mcg) by mouth once daily. 0 04/25/2019 ActiveStart: 32-39-6155vgtb 1 tablet by mouth once dailyCholecalciferol (Vitamin D3) 2,000 unit Tablet Active 2000 UNIT PO Daily April 02, 2019 11:00pm Cholecalciferol (Vitamin D3) 1000 units capsule 1 (one) time each day at the same time Active End: 02-52-0272nyxuorfdgrffvts, vitamin D3, 2,000 units capsule Take by mouth. 0 09/01/2023 Discontinued (Therapy completed)Comment on above:Take by mouth once daily.clopidogrel 75 mg oral tablet (10 sources)P2Y12 Platelet InhibitorStart: 02-15-2024 End: 90-37-6676ywly 1 tablet by mouth in the morningclopidogreL (PLAVIX) 75 mg tablet Take 1 tablet (75 mg total) by mouth in the morning. 03/29/2024 Activecolestipol hydrochloride 1000 mg oral tablet (20 sources)Bile Acid SequestrantStart: 12-22-2023 End: 10-89-2443pnwr 3 tablets by mouth twice dailycolestipol (COLESTID) 1 gram tablet Indications: Diarrhea, unspecified type TAKE 3 TABLETS BY MOUTHTWICE DAILY 360 tablet 3 11/15/2024 ActiveStart: 65-05-2233Ktmgdhlyss (Colestid) 1 gram tablet Active 2 GM PO Twice daily September 18, 2023 12:00amStart: 12-30-2021 End: 43-91-7805gahs 2 tablets by mouth at bedtimecolestipoL (COLESTID) 1 g tablet Take 2 tablets (2 g total) by mouth in the morning and 2 tablets (2 g total) before bedtime. 01/13/2023 ActiveStart: 08-21-2021 End: 84-74-7587uzvw 2 tablets by mouth twice dailycolestipol (COLESTID) 1 gram tablet Indications: Diarrhea, unspecified type Take 2 tablets by mouthtwice daily. 120 tablet 3 08/21/2021 10/16/2021 DiscontinuedComment on above:Take 2 tablets by mouth twice daily.TAKE 2 TABLETS BY MOUTH TWICE A DAY12 hr dextromethorphan hydrobromide 30 mg / guaiFENesin 600 mg extended release oral tablet (1 source)Uncompetitive B-ubseci-K-aspartate Receptor Antagonist, Sigma-1 AgonistStart: 09-22-2023 End: 71-40-1268pisy 1 tablet by mouth every hourdextromethorphan-guaiFENesin (MUCINEX DM) 30-600 mg tablet extended release 12 hr Take 1 tablet by mouth every 12 (twelve) hours for 10 days. 20 tablet 0 09/22/2023 10/02/2023 Active diclofenac sodium 0.01 mg/mg topical gel (20 sources)Nonsteroidal Anti-inflammatory DrugStart: 05-18-2024 End: 94-56-9295omilr 4 g topically four times dailydiclofenac (VOLTAREN ARTHRITIS PAIN) 1 % topical gel Apply 4 g to affected area four times daily. 200 g 5 05/18/2024 08/16/2024 ActiveStart: 02-04-2023 End: 61-72-0105pudtu 2 g topically four times dailydiclofenac (VOLTAREN) 1 % topical gel Apply 2 g to affected area four times daily. 200 g 2 02/04/2023 05/05/2023 ActiveComment on above:Apply 2 g to affected area four times daily. diphenhydrAMINE hydrochloride 50 mg oral tablet (9 sources)Histamine-1 Receptor AntagonistStart: 16-66-4424jhuyiqwoyoIYNRQ (Benadryl Allergy) 50 mg tablet Indications: Allergy to iodine Take 1 tablet (50 mg) by mouth as needed at bedtime for itching for up to 1 dose. Take [address] scan 1 tablet 08/08/2024 ActiveStart: 04-07-2024 End: 13-94-5667znci 50 mg by mouth once50 mg, oral, Once, On [place] 04/07/24 at 1200, For 1 dose, Pre-Admission TestingStart: 03-13-2022 End: 44-30-7832pjfygwmkikLTTGW 50 mg (BENADRYL)Start: 03-13-2022 End: 78-46-4313ryfolyrtyfQFYOB 50 mg injection (BENADRYL)docusate sodium 100 mg oral capsule (9 sources)Start: 04-04-2025 End: 84-56-4717tulc 1 capsule by mouth twice dailydocusate sodium (COLACE) 100 mg capsule Take 1 capsule by mouth two times a day. 60 capsule 04/04/2025 05/04/2025 Activedoxycycline hyclate 100 mg oral tablet (9 sources)Tetracycline-class DrugStart: 01-25-2025 End: 53-68-9175pald 1 tablet by mouth twice dailydoxycycline (VIBRA-TABS) 100 mg tablet Take 1 tablet by mouth two times a day for 14 days. 28 tablet 01/25/2025 02/08/2025 Activeferrous sulfate 325 mg oral tablet (20 sources)Start: 89-57-3100jrxn 1 tablet by mouth once dailyFerrous Sulfate 325 mg (65 mg iron) Tablet Active 325 MG PO Daily February 06, 2022 11:00pmStart: 10-23-2020 End: 44-06-8505lofe 1 tablet by mouth once dailyferrous sulfate (IRON) 325 mg (65 mg iron) tablet Take 1 tablet by mouth once daily. 90 tablet 3 11/30/2024 ActiveComment on above:Take 1 tablet by mouth once daily.furosemide 20 mg oral tablet (20 sources)Loop DiureticStart: 10-05-2019 End: 07-87-0404yavv 1 tablet by mouth once dailyfurosemide (LASIX) 20 mg tablet Take 1 tablet by mouth once daily 90 tablet 1 01/18/2025 ActiveStart: 10-05-2019 take 2 tablets by mouth once dailyfurosemide (Lasix) 20 mg tablet Take 2 tablets (40 mg) by mouth once daily. 10/05/2019 ActiveStart: 72-33-4953shji 1 tablet by mouth once dailyFurosemide 40 mg Tablet Active 40 MG PO Daily at 0800 30 September 30, 2019 12:00amStart: 04-09-2019 End: 00-49-7360uyia 1 tablet by mouth once dailyFurosemide 20 mg Tablet Discontinued 20 MG PO Daily at 0800 30 April 08, 2019 11:00pm June 19, 2019 11:46amStart: 04-03-2019 End: 24-57-1225ksxn 1 tablet by mouth once dailyFurosemide 40 mg tablet Discontinued 40 MG PO Daily April 02, 2019 11:00pm April 09, 2019 11:17am furosemide (LASIX) 40 mg tablet Take 20 mg by mouth once daily. 0 ActiveComment on above:Take 20 mg by mouth once daily. Take 40 mg by mouth once daily. hydroxychloroquine sulfate 200 mg oral tablet (20 sources)Antimalarial, Antirheumatic AgentStart: 07-25-2016 End: 76-58-1207wgohmctggheenezior (PLAQUENIL) 200 mg tablet 07/25/2016 Active Start: 07-25-2016 End: 86-02-6960gngk 1 tablet by mouth once dailyHydroxychloroquine 200 mg tablet Discontinued 200 MG PO Daily 30 November 25, 2023 11:00pm September 19, 2024 8:19amComment on above:take 1 tablet by mouth twice a day take with food or milk NEEDS LABStake 1 tablet by mouth twice a day with foodlevothyroxine sodium 0.05 mg oral tablet (20 sources)l-ThyroxineStart: 09-24-2023 End: 92-19-3339czzd 1 tablet by mouth in the morninglevothyroxine (SYNTHROID, LEVOTHROID) 50 MCG tablet Take 1 tablet (50 mcg total) by mouth in the morning. 90 tablet 05/17/2025 ActiveStart: 09-11-2022 End: 34-39-0664seqo 1 tablet by mouth in the morninglevothyroxine (SYNTHROID, LEVOTHROID) 50 MCG tablet Take 1 tablet (50 mcg total) by mouth in the morning. 30 tablet 1 08/20/2023 ActiveStart: 78-12-2612Fuzwlplalibld 75 mcg tablet Active 50 MCG PO Daily February 06, 2022 11:00pmStart: 80-87-9739uqpj 50 ug by mouth once dailyLevothyroxine Active 50 MCG PO Daily February 07, 2022 12:00amStart: 09-24-2020 End: 18-60-1860ubcq 1 tablet by mouth once dailylevothyroxine (SYNTHROID) 75 mcg tablet Take 75 mcg by mouth once daily. 09/24/2020 ActiveComment on above:Take 75 mcg by mouth once daily.mesalamine 1200 mg delayed release oral tablet (20 sources)AminosalicylateStart: 04-08-2023 End: 74-01-3952gjgwhztnpf (CANASA) 1,000 mg suppository 1 Suppository by RECTAL route daily at bedtime. 30 Suppository 3 04/08/2023 10/09/2023 Discontinued (Course of therapy completed)Start: 09-22-2021 End: 99-41-1978bahv 4 tablets by mouth in the morningmesalamine (LIALDA) 1.2 gram EC tablet Take 4 tablets (4.8 g total) by mouth in the morning. 06/26/2022 ActiveStart: 03-04-2021 End: 83-99-1892kpsr 4 tablets by mouth once dailyMesalamine (LIALDA) 1.2 gram EC tablet Take 4 tablets by mouth once daily. 360 tablet 1 03/04/2021 09/20/2021 DiscontinuedStart: 58-50-1380dyiw 2 tablets by mouth twice dailymesalamine (Lialda) 1.2 gram EC tablet Take 2 tablets (2.4 g) by mouth 2 times a day. 12/06/2019 ActiveStart: 20-12-2713Bhuypvsird 1.2 GM Oral Tablet Delayed Release takes 4x day Quantity: 0 Refills: 0 Ordered: 06-Dec-2019 DO Start : 06-Dec-2019 ActiveStart: 98-32-0248nzuz 1 tablet by mouth four times dailyMesalamine (Lialda) 1.2 gram tablet,delayed release (DR/EC) Active 1.2 GM PO Four times daily June 19, 2019 11:45amComment on above:Take 4 tablets by mouth once daily.take 4 tablets by mouth once daily1 Suppository by RECTAL route daily at bedtime.metoprolol tartrate 25 mg oral tablet (20 sources)beta-Adrenergic BlockerStart: 20-50-2113rnetskhyxx tartrate (LOPRESSOR) 25 mg tablet 08/05/2024 ActiveStart: 08-05-2024 End: 17-50-1439ryzx 1 tablet by mouth once dailymetoprolol succinate ER (TOPROL XL) 200 mg 24 hr tablet Take 200 mg by mouth once daily. 505 ActiveStart: 11-25-2023 End: 51-81-5179Jihwpjvrrh Succinate 50 mg tablet extended release 24 hr Discontinued 100 MG PO Daily at bedtime November 24, 2023 11:00pm November 26, 2023 12:46pmStart: 11-25-2023 End: 44-42-4695vnpx 100 mg by mouth once daily at bedtimeMetoprolol Succinate Discontinued 100 MG PO Daily at bedtime November 25, 2023 12:00am November 25 1:46pmStart: 92-72-2516yify 1 tablet by mouth every twenty-four hours in the morning, then take 2 tablets by mouth in the eveningmetoprolol succinate ER (TOPROL XL) 50 mg 24 hr tablet Indications: Chronic diastolic heart failure(HCC) TAKE 1 TABLET BY MOUTH IN THE MORNING AND 2 TABLETS BY MOUTH IN THE EVENING 270 tablet 3 02/09/2023 ActiveStart: 01-28-2022 End: 77-61-3925zsgtzkmobe succinate XL (TOPROL XL) 50 mg 24 hr tablet 08/20/2022 ActiveStart: 07-26-2021 End: 35-28-5113ydnguwyxwz succinate ER (TOPROL XL) 50 mg 24 hr tablet 50mg in am and 100mg in pm. 270 tablet 1 07/26/2021 01/24/2022 DiscontinuedStart: 89-60-1548Dhgxqluvgx Succinate 100 mg tablet extended release 24 hr Active 200 MG PO Bedtime September 18, 2019 3:31pmStart: 85-10-0953lfnq 2 tablets by mouth once daily in the morningMetoprolol Succinate 100 mg tablet extended release 24 hr Active 50 MG PO Every morning September 18, 2019 3:31pmStart: 35-27-3260xned 50 mg by mouth once daily in the morningMetoprolol Succinate Active 50 MG PO Every morning September 18, 2019 4:31pmStart: 21-79-9284ntvj 50 mg by mouth twice dailyMetoprolol Succinate Active 50 MG PO Twice daily September 18, 2019 3:31pmStart: 06-23-2019 End: 91-96-5019Wlkduomuwa Succinate 100 mg Tablet Extended Release 24 Hr Discontinued 150 MG PO Daily 45 June 23, 2019 12:00am September 18, 2019 3:31pmStart: 06-23-2019 End: 67-61-2665zwum 150 mg by mouth once dailyMetoprolol Succinate Discontinued 150 MG PO Daily 45 June 23, 2019 1:00am September 18, 2019 4:31pmStart: 05-08-2019 End: 44-17-0559Aocbdpbvvf Succinate 50 mg tablet extended release 24 hr Discontinued 100 MG PO Every evening May 07, 2019 11:00pm June 19, 2019 11:46amStart: 05-08-2019 End: 90-12-9550gttg 100 mg by mouth once daily in the eveningMetoprolol Succinate Discontinued 100 MG PO Every evening May 08, 2019 12:00am June 19, 2019 12:46pmStart: 04-09-2019 End: 44-39-8100xygi 1 tablet by mouth once dailyMetoprolol Succinate 50 mg tablet extended release 24 hr Discontinued 50 MG PO Daily May 08, 2019 10:52am June 23, 2019 1:24pm End: 61-13-0162rlya 1 tablet by mouth in the morning, then take 2 tablets by mouth in the eveningmetoprolol tartrate (Lopressor) 50 mg tablet Take by mouth. Take 1 tablet in am and 2 tablets in pm. 0 09/17/2023 Discontinued (Therapy completed)Comment on above:50mg in am and 100mg in pm.TAKE 1 TABLET BY MOUTH IN THE MORNING AND 2 TABLETS BY MOUTH IN THE HPGFRCXWlfsfeud-Ria-Xz-Lycopen-Lutein (Centrum Silver) 0.4-300-250 mg-mcg-mcg Tablet (8 sources)Start: 94-19-0665kmkk 1 tablet by mouth once daily Edazjwqu-Cia-Vg-Lycopen-Lutein (Centrum Silver) 0.4-300-250 mg-mcg-mcg Tablet Active 1 TAB PO DailyFall Branch 2018 5:52pmStart: 41-65-8117fewb 1 tablet by mouth once cbhiqNfxagajw-Lkk-Ch-Lycopen-Lutein (Centrum Silver) 0.4-300-250 mg-mcg-mcg Tablet Active 1 TAB PO DailyFall Branch 2018 12:00amStart: 40-91-6536oezy 1 tablet by mouth once pwlkiSuyeirlg-Jlr-Me-Lycopen-Lutein (Centrum Silver) 0.4-300-250 mg-mcg-mcg Tablet Active 1 TAB PO DailyFall [place] 2018 11:00pmmultivitamin capsule (20 sources)Start: 96-88-3593igknrrhdpyhl capsule Take by mouth. 02/21/2010 ActiveStart: 05-46-6382risqbvxnjrrz capsule Take by mouth. 0 02/21/2010 Active multivitamin with minerals iron-free (Centrum Silver) (15 sources)Start: 04-54-5287iysd 1 tablet by mouth once dailymultivitamin with minerals iron-free (Centrum Silver) Take 1 tablet by mouth once daily. 04/25/2019ActiveStart: 66-13-4108xzxi 1 tablet by mouth once dailymultivitamin with minerals iron-free (Centrum Silver) Take 1 tablet by mouth once daily. 0 04/25/2019 Activemultivitamins w-minerals/lut(CENTRUM SILVER TAB) (20 sources)Start: 12-75-4230zugngzvawqcdz w-minerals/lut(CENTRUM SILVER TAB) Take one(1) tablet daily. 0 02/21/2010 SuspendedStart: 50-53-6732kxertlidctlio w-minerals/lut(CENTRUM SILVER TAB) Take one(1) tablet daily. 0 02/21/2010 Active Comment on above:Take one(1) tablet daily.mupirocin 0.02 mg/mg topical ointment (20 sources)RNA Synthetase Inhibitor AntibacterialStart: 39-18-0226pjjuozpda (BACTROBAN) 2 % ointment Apply to affected area three times a day. 30 g 1 01/18/2025 ActiveMV with Yis-Aahqglpo-Amlevn (CENTRUM SILVER) 0.4 mg-300 mcg- 250 mcg tab (20 sources)take 1 tablet by mouth once dailyMV with Mec-Qaqknwtm-Zlzlzt (CENTRUM SILVER) 0.4 mg-300 mcg- 250 mcg tab Take 1 tablet by mouth once daily. Activetake 1 tablet by mouth once dailyMV with Een-Vpvfszgh-Wrvbni (CENTRUM SILVER) 0.4 mg-300 mcg- 250 mcg tab Take 1 tablet by mouth once daily. 0 Active Comment on above:Take 1 tablet by mouth once daily.nitrofurantoin, macrocrystals 25 mg / nitrofurantoin, monohydrate 75 mg oral capsule (3 sources)Nitrofuran AntibacterialStart: 02-05-2023 End: 38-84-7850xvya 1 capsule by mouth twice dailynitrofurantoin monohydrate and macrocrystal (MACROBID) 100 mg capsule Take 1 capsule by mouth twicedaily for 5 days. 10 capsule 0 02/05/2023 02/10/2023 ActiveComment on above:Take 1 capsule by mouth twice daily for 5 days.nystatin 100 unt/mg topical powder (9 sources)Polyene AntifungalStart: 29-53-4287iutfltaw (MYCOSTATIN) powder Apply 1 Application topically in the morning and 1 Application at noonand 1 Application in the evening and 1 Application before bedtime. 15 g 1 12/29/2024 Active2 ml ondansetron 2 mg/ml injection (20 sources)Serotonin-3 Receptor AntagonistStart: 03-13-2022 End: 22-82-1386ugpewbtcxin orally disintegrating 4 mg tab(s) (ZOFRAN ODT)Start: 03-13-2022 End: 94-24-7390emcalotyotj (PF) 4 mg injection (ZOFRAN)Start: 09-30-2019 End: 04-55-1591tsvr 1 tablet by mouth every six hours as needed for nausea and vomitingOndansetron 4 mg Tablet,Disintegrating Discontinued 4 MG PO Every 6 hours as needed for Nausea And Vomiting September 30, 2019 12:00am February 07, 2022 4:10pmStart: 04-08-2019 End: 97-06-5362wkyd 1 tablet by mouth every eight hours as needed for nausea and vomitingOndansetron 4 mg tablet,disintegrating Discontinued 4 MG PO Q8H as needed for nausea and vomiting 15 5 April 07, 2019 11:00pm June 19, 2019 11:48ampantoprazole 40 mg delayed release oral tablet (20 sources)Proton Pump InhibitorStart: 15-75-4614cxsn 1 tablet by mouth in the morning, then take 1 tablet by mouth at bedtimepantoprazole (PROTONIX) 40 mg EC tablet Take 1 tablet (40 mg total) by mouth in the morning and 1 tablet (40 mg total) before bedtime. 05/15/2022 ActiveStart: 09-12-2021 End: 08-84-8946orpv 1 tablet by mouth twice dailypantoprazole DR (PROTONIX) 40 mg tablet Take 1 tablet by mouth twice daily 180 tablet 3 10/17/2024 Active Comment on above:Take 1 tablet by mouth twice daily.take 1 tablet by mouth twice a dayperflutren lipid microspheres 1.3 mL in NaCl (PF) 0.9% 10 mL injection (DEFINITY) (20 sources)Start: 03-27-2022 End: 87-71-8253whatgcvdgl lipid microspheres 1.3 mL in NaCl (PF) 0.9% 10 mL injection (DEFINITY)Start: 05-16-2021 End: 94-60-2538wrnmshinpt lipid microspheres 1.3 mL in NaCl (PF) 0.9% 10 mL injection (DEFINITY)predniSONE 50 mg oral tablet (20 sources)Start: 70-28-2459yorehfNGJN (DELTASONE) 50 mg tablet 08/08/2024 ActiveStart: 04-06-2024 End: 71-49-8386jvwx 50 mg by mouth once50 mg, oral, Once, On [place] 04/07/24 at 1200, For 1 dose, Pre-Admission TestingStart: 09-22-2023 End: 05-44-3782dvup 1 tablet by mouth in the morningpredniSONE (DELTASONE) 20 mg tablet Indications: Subacute maxillary sinusitis Take 1 tablet (20 mg total) by mouth in the morning. 7 tablet 09/22/2023 02/16/2024 Discontinued (Therapy completed)Start: 09-30-2019 End: 40-31-4954Mcvhimcuzq 10 mg tablet Discontinued 0 .ROUTE .COMPLEX September 30, 2019 12:00am February 07, 2022 4:01pm 4 pills every morning for 2 days, then 3 pills every morning for 4 days, then 2 pills every morning for 4 days, then go back to usual dose of prednisone every day after that.Start: 09-30-2019 End: 42-68-2130Ddtcfwbizj 5 mg tablet Discontinued 0 .ROUTE .COMPLEX September 30, 2019 12:00am February 07, 2022 4:01pm second part of prednisone taper: take 2 pills a day for 4 days, then 1 pill a day for 4 days, then 1 pill every other day x 2 doses, then stop.Start: 06-19-2019 End: 96-08-0042lrla 10 mg by mouth once dailyPrednisone 20 mg tablet Discontinued 10 MG PO Daily June 19, 2019 11:45am September 30, 2019 1 1:10amStart: 06-19-2019 End: 35-60-8349fswc 10 mg by mouth once dailyPrednisone Discontinued 10 MG PO Daily June 19, 2019 12:45pm September 30, 2019 12:10pmStart: 05-12-2019 End: 91-23-6702palv 2 tablets by mouth once dailyPrednisone 20 mg tablet Discontinued 40 MG PO Daily 60 May 11, 2019 11:00pm June 19, 2019 11:45amStart: 05-12-2019 End: 63-22-5583xocw 40 mg by mouth once dailyPrednisone Discontinued 40 MG PO Daily 60 May 12, 2019 12:00am June 19, 2019 12:45pmStart: 07-15-2017 End: 47-69-8405bwkj 1 tablet by mouth in the morningpredniSONE (DELTASONE) 20 mg tablet Indications: Subacute maxillary sinusitis Take 1 tablet (20 mg total) by mouth in the morning. 7 tablet 09/22/2023 Active End: 65-09-3847TPPXSDKZQX ORAL Pt states only taking medication before infusions. 0 03/13/2022 DiscontinuedPREDNISONE ORAL Pt states only taking medication before infusions. 0 ActiveComment on above:Pt states only taking medication before infusions. prochlorperazine 5 mg/ml injectable solution (3 sources)PhenothiazineStart: 03-13-2022 End: 83-95-2845nzidqvvvfmatdghh 5 mg injection (COMPAZINE)125 ml sodium chloride 9 mg/ml prefilled syringe (20 sources)Start: 05-16-2021 End: 02-01-1150mxqhjt chloride 0.9 % (flush) 10 mL (BD POSIFLUSH)sucralfate 100 mg/ml oral suspension (20 sources)Aluminum ComplexStart: 09-12-2021 End: 32-67-0992udpj 10 mL by mouth four times dailysucralfate (CARAFATE) 100 mg/mL suspension Take 10 mL by mouth four times daily. 420 mL 1 10/16/2021 ActiveComment on above:Take 10 mL by mouth four times daily.Sucralfate (Carafate) 100 mg/mL Suspension (8 sources)Start: 73-23-6143sfrp 1 mL by mouth four times dailySucralfate (Carafate) 100 mg/mL Suspension Active 10 ML PO Four times daily February 07, 2022 4:59pmStart: 02-07-2022 End: 48-67-0006maqh 1 mL by mouth four times dailySucralfate (Carafate) 100 mg/mL Suspension Discontinued 10 ML PO Four times daily February 06, 2022 11:00pm November 25, 2023 9:47amStart: 02-07-2022 End: 88-94-0897cnux 1 mL by mouth four times dailySucralfate (Carafate) 100 mg/mL Suspension Discontinued 10 ML PO Four times daily February 07, 2022 12:00am November 25, 2023 10:47amStart: 13-95-7197ruga 1 mL by mouth four times daily Sucralfate (Carafate) 100 mg/mL Suspension Active 10 ML PO Four times daily February 06, 2022 11:00pm24 hr venlafaxine 150 mg extended release oral capsule (20 sources)Serotonin and Norepinephrine Reuptake InhibitorStart: 29-30-7270tthw 1 capsule by mouth every twenty-four hours in the morningvenlafaxine XR (EFFEXOR-XR) 150 mg 24 hr capsule Take 1 capsule by mouth in the morning 90 capsule 1 06/05/2025 ActiveStart: 06-11-2023 End: 42-99-4234vere 1 capsule by mouth every twenty-four hours in the morning venlafaxine XR (EFFEXOR-XR) 150 mg 24 hr capsule Take 1 capsule by mouth in the morning 90 capsule 1 12/09/2024 06/05/2025 DiscontinuedStart: 04-03-2019 End: 01-24-1991cnwb 1 capsule by mouth once dailyvenlafaxine ER (EFFEXOR XR) 150 mg 24 hr capsule Take 1 capsule by mouth once daily. 90 capsule 3 10/23/2020 ActiveComment on above:Take 1 capsule by mouth once daily.Vitamin B Complex (20 sources)Start: 39-94-0978ptvpmwb b complex(B COMPLEX TAB) one daily 0 05/02/2010 SuspendedStart: 91-12-5993rjgsbzi b complex(B COMPLEX TAB) one daily 0 05/02/2010 ActiveComment on above:one dailyVitamin B Complex (B Complex 1) Tablet (8 sources)Start: 89-67-7033yvrh 1 tablet by mouth once dailyVitamin B Complex (B Complex 1) Tablet Active 100 MG PO Daily April 03, 2019 5:52pmStart: 04-03-2019 End: 66-86-9967wokl 1 tablet by mouth once dailyVitamin B Complex (B Complex 1) Tablet Discontinued 100 MG PO Daily April 02, 2019 11:00pm 2023 9:48amStart: 04-03-2019 End: 23-84-4458taka 1 tablet by mouth once dailyVitamin B Complex (B Complex 1) Tablet Discontinued 100 MG PO Daily April 03, 2019 12:00am 2023 10:48amStart: 97-77-2876xrmz 1 tablet by mouth once dailyVitamin B Complex (B Complex 1) Tablet Active 100 MG PO Daily April 02, 2019 11:00pmvitamin B complex (B COMPLEX) tablet extended release (20 sources)Start: 57-72-2587pddvfse B complex (B COMPLEX) tablet extended release Take by mouth. 05/02/2010 ActiveStart: 00-88-1400jwbyion B complex (B COMPLEX) tablet extended release Take by mouth. 0 05/02/2010 Active Completed/Discontinued Medications MedicationDrug Class(es)DatesSig (Normalized)Sig (Original)acetaminophen 500 mg oral tablet (20 sources)Start: 01-26-2025 End: 22-64-3030hvbc 1 dose by mouth once1,000 mg, ORAL, ONCE, 1 dose, On Thu01/26/25 at 0900Start: 12-01-2024 End: 15-76-8700pvpy 1 dose by mouth once1,000 mg, ORAL, ONCE, 1 dose, On Thu12/01/24 at 0900Start: 10-06-2024 End: 65-47-6062kqyl 1 dose by mouth once1,000 mg, ORAL, ONCE, 1 dose, On Thu10/06/24 at 0900Start: 08-11-2024 End: 01-40-7436tgdi 1 dose by mouth once1,000 mg, ORAL, ONCE, 1 dose, On Thu08/11/24 at 1000Start: 06-14-2024 End: 16-78-4506vxee 1 dose by mouth once1,000 mg, ORAL, ONCE, 1 dose, On Thu06/14/24 at 0930Start: 04-19-2024 End: 89-78-5353aese 1 dose by mouth once1,000 mg, ORAL, ONCE, 1 dose, On Thu04/19/24 at 1030Start: 02-23-2024 End: 90-77-0971wnmiwbcvkbtds 1,000 mg tab(s) (TYLENOL)Start: 12-24-2023 End: 99-91-3778jgqovetwzxvfc 1,000 mg tab(s) (TYLENOL)Start: 77-17-8013chpz 1 tablet by mouth every four hours as neededacetaminophen (TYLENOL) 500 mg tablet Take 1 tablet by mouth every 4 hours as needed for pain. 08/27/2022 ActiveStart: 03-13-2022 End: 26-94-9471zoezyweifdtrq 650 mg tab(s) (TYLENOL)Start: 04-03-2019 End: 17-20-1202yzpl 1 tablet by mouth every six hours as needed for pain Acetaminophen 500 mg Tablet Discontinued 500 MG PO Q6H as needed for Pain April 02, 2019 11:00pmJune 19, 2019 11:46amStart: 80-60-7701pqhhrvjljjsue (TYLENOL) 325 mg tablet 12/25/2016 ActiveStart: 82-29-6320sndqlfuzibgso (TYLENOL) 325 mg tablet Take 2 tablets by mouth. Pre med 12/25/2016 Active Comment on above:Take 1 tablet by mouth every 4 hours as needed for pain. ALPRAZolam 0.5 mg oral tablet (8 sources)BenzodiazepineStart: 04-09-2019 End: 23-31-9300psec 1 tablet by mouth once daily at bedtime as needed for anxietyAlprazolam (Xanax) 0.5 mg tablet Discontinued 0.5 MG PO Daily at bedtime as needed for anxiety 10 April 08, 2019 11:00pm May 08, 2019 10:52amamLODIPine 5 mg oral tablet (20 sources)Dihydropyridine Calcium Channel BlockerStart: 04-03-2019 End: 13-51-2043folw 1 tablet by mouth once dailyAmlodipine 5 mg Tablet Discontinued 5 MG PO Daily June 18, 2019 11:00pm September 18, 2019 3:31pm amylase [id number] unt / lipase 25477 unt / protease 21615 unt delayed release oral capsule (8 sources)Start: 09-30-2019 End: 83-48-7706qfgj 17727-22647 capsules by mouth maggCszkkm-Avklpewn-Kjbjubr (Creon) 24,000-76,000 -120,000 unit Capsule,Delayed Release(Dr/Ec) Discontinued 3 CAP PO 3x/Day with meals September 30, 2019 12:00am February 07, 2022 4:11pm Further refills per GI Dr. Carrascoaspirin 81 mg delayed release oral tablet (12 sources)Platelet Aggregation Inhibitor, Nonsteroidal Anti-inflammatory Drug Start: 02-15-2024 End: 85-87-2456xdky 1 tablet by mouth in the morningaspirin 81 mg Take 1 tablet (81 mg total) by mouth in the morning. 03/29/2024 06/30/2024 Discontinued (Therapy completed)B complex-vitamin C-folic acid (Dialyvite) 100-1 mg tablet (5 sources)Start: 04-25-2019 End: 45-96-5000tiwg 1 tablet by mouth once dailyB complex-vitamin C-folic acid (Dialyvite) 100-1 mg tablet Take 1 tablet by mouth once daily. 04/25/2019 01/05/2024 Discontinued (Med List Cleanup)Start: 55-50-6082hxbo 1 tablet by mouth once dailyB complex-vitamin C-folic acid (Dialyvite) 100-1 mg tablet Take 1 tablet by mouth once daily. 0 04/25/2019 Activebelimumab 1,164 mg in NaCl 0.9% 250 mL (BENLYSTA) (1 source)Start: 01-26-2025 End: ,164 mg (10 mg/kg/dose 116.4 kg), INTRAVENOUS, at 250 mL/hr, Administer over 60 Minutes, ONCE, 1 dose, On [facility] 01/26/25 at 0900, Run over 60- 120 minutes EXP: 159901/26/25 REFRIGERATE Protect From Lightbelimumab 1,169 mg in NaCl 0.9% 250 mL (BENLYSTA) (1 source)Start: 10-06-2024 End: ,169 mg (10 mg/kg/dose 116.9 kg), INTRAVENOUS, at 250 mL/hr, Administer over 60 Minutes, ONCE, 1 dose, On [facility] 10/06/24 at 0900, Run over 60- 120 minutes EXP: 159910/06/24 REF Protect From Lightbelimumab 1,179 mg in NaCl 0.9% 250 mL (BENLYSTA) (1 source)Start: 12-24-2023 End: 68-90-4147keyrbjphr 1,179 mg in NaCl 0.9% 250 mL (BENLYSTA)belimumab 1,184 mg in NaCl 0.9% 250 mL (BENLYSTA) (1 source)Start: 12-01-2024 End: ,184 mg (10 mg/kg/dose 118.4 kg), INTRAVENOUS, at 250 mL/hr, Administer over 60 Minutes, ONCE, 1 dose, On Thu12/01/24 at 0900, Run over 60- 120 minutes EXP: 159912/01/24 ROOM TEMP OR REFRIGERATED Protect From Light belimumab 1,190 mg in NaCl 0.9% 250 mL (BENLYSTA) (1 source)Start: 02-23-2024 End: 32-38-8421nuotymacx 1,190 mg in NaCl 0.9% 250 mL (BENLYSTA)belimumab 1,203 mg in NaCl 0.9% 250 mL (BENLYSTA) (1 source)Start: 06-14-2024 End: ,203 mg (10 mg/kg/dose 120.3 kg), INTRAVENOUS, at 250 mL/hr, Administer over 60 Minutes, ONCE, 1 dose, On Thu06/14/24 at 0930, Run over 60- 120 minutes EXP: 159906/14/24 REF Protect From Lightbelimumab 1,206 mg in NaCl 0.9% 250 mL (BENLYSTA) (1 source)Start: 08-11-2024 End: ,206 mg (10 mg/kg/dose 120.6 kg), INTRAVENOUS, at 250 mL/hr, Administer over 60 Minutes, ONCE, 1 dose, On Thu08/11/24 at 1000, Run over 60- 120 minutes EXP: 159908/11/24 Room Temp Protect From Lightbelimumab 1,211 mg in NaCl 0.9% 250 mL (BENLYSTA) (1 source)Start: 04-19-2024 End: ,211 mg (10 mg/kg/dose 121.1 kg), INTRAVENOUS, at 250 mL/hr, Administer over 60 Minutes, ONCE, 1 dose, On Thu04/19/24 at 1030, Total Volume - EXP: 159904/19/24 REF or Room Temp Protect From Lightcalcium carbonate 500 mg chewable tablet (20 sources)Start: 28-06-7739wqqk 500 mg by mouth every hour as neededcalcium carbonate (TUMS) 500 mg chew Take 1 tablet by mouth every hour as needed (mouth or hand numbness or tingling). 0 08/27/2022 ActiveComment on above:Take 1 tablet by mouth every hour as needed (mouth or hand numbness or tingling).Calcium Carbonate / vitamin D3 (20 sources) End: 60-53-0720PMPVFAD CARBONATE/VITAMIN D3 (CALCIUM 600 + D ORAL) Take by mouth once daily. 0 05/12/2022 DiscontinuedCALCIUM CARBONATE/VITAMIN D3 (CALCIUM 600 + D ORAL) Take by mouth once daily. 0 ActiveComment on above:Take by mouth once daily. Calcium Carbonate-Vitamin D3 (Calcium 600 + D(3)) 600-125 mg-unit Tablet (5 sources)Start: 09-18-2019 End: 38-46-6211azgp 2 tablets by mouth once dailyCalcium Carbonate-Vitamin D3 (Calcium 600 + D(3)) 600-125 mg-unit Tablet Discontinued 2 TAB PO Daily September 18, 2019 1:00am February 07, 2022 5:11pmStart: 09-18-2019 End: 99-61-5335rycp 2 tablets by mouth once dailyCalcium Carbonate-Vitamin D3 (Calcium 600 + D(3)) 600-125 mg-unit Tablet Discontinued 2 TAB PO Daily September 18, 2019 12:00am February 07, 2022 4:11pmcarvedilol 12.5 mg oral tablet (15 sources)alpha-Adrenergic Girish, beta-Adrenergic BlockerStart: 04-03-2019 End: 37-06-9687hyfm 1 tablet by mouth twice dailyCarvedilol 12.5 mg Tablet Discontinued 12.5 MG PO Twice daily April 02, 2019 11:00pm April 09, 2019 11:17amcarvedilol (Coreg) 12.5 MG tablet every 12 (twelve) hours ActiveCentrum Silver Oral Tablet (8 sources)Start: 37-80-7129xbbz 1 tablet by mouth once dailyCentrum Silver Oral Tablet TAKE 1 TABLET DAILY. Quantity: 0 Refills: 0 Ordered: 25-Apr-2019 DO Start: 25-Apr-2019 Activecephalexin 500 mg oral capsule (20 sources)Cephalosporin AntibacterialStart: 62-73-4469mafp 1 capsule by mouth four times dailycephALEXin (KEFLEX) 500 mg capsule Take 1 capsule by mouth four times daily. 28 capsule 0 02/12/2023 ActiveStart: 02-09-2022 End: 58-21-3144ouzs 1 capsule by mouth every six hoursCephalexin 500 mg capsule Discontinued 500 MG PO Q6H 12 3 February 08, 2022 11:00pm November 25, 2023 9:44am Start: 09-30-2019 End: 45-53-8135tled 1 capsule by mouth three times dailyCephalexin (Keflex) 500 mg capsule Discontinued 500 MG PO Three times daily 9 September 30, 2019 12:00am February 07, 2022 4:08pmComment on above:Take 1 capsule by mouth four times daily.cholestyramine resin 4000 mg powder for oral suspension (20 sources)Bile Acid SequestrantStart: 09-18-2023 End: 45-25-8962Wnpqbfjuskoabd (With Sugar) (Questran) 4 gram powder in packet Discontinued EACH PO Three times daily September 18, 2023 12:00am November 25, 2023 9:44amStart: 02-07-2022 End: 49-55-1696Epkzhhufdifxoj-Aspartame 4 gram Powder Discontinued 4 GM PO Twice daily February 06, 2022 11:00pm November 25, 2023 9:44amStart: 10-16-2021 End: 71-88-4591nwzz 4 g by mouth twice daily at mealtimecholestyramine-sucrose (QUESTRAN) 4 gram powder Take 4 g by mouth twice daily with meals. 240 g 3 10/17/2022 DiscontinuedComment on above:Take 4 g by mouth twice daily with meals.Take 4 g by mouth three times daily with meals.cilgavimab 300 mg intramuscular injection (EVUSHELD) (1 source)Start: 03-13-2022 End: 59-13-3817vhjrxvtdht 300 mg intramuscular injection (EVUSHELD) dextromethorphan hydrobromide 1.5 mg/ml / pyrilamine maleate 1.5 mg/ml oral solution (11 sources)Uncompetitive T-wthbll-G-aspartate Receptor Antagonist, Sigma-1 AgonistStart: 07-16-2023 End: 75-45-0113oxmi 5 mL by mouth four times daily as needed for cough and congestionpyrilamine-dextromethorphan 7.5-7.5 mg/5 mL liquid Indications: Subacute maxillary sinusitis Take 5mL by mouth 4 (four) times a day as needed (cough and congestion). 200 mL 1 09/22/2023 02/16/2024 Discontinued (Therapy completed)dicloxacillin 500 mg oral capsule (2 sources)Penicillin-class AntibacterialStart: 01-08-2023 End: 48-86-8612eois 1 capsule by mouth four times dailydicloxacillin (DYNAPEN) 500 mg capsule Take 1 capsule by mouth four times daily. 28 capsule 0 01/08/2023 01/22/2023 Discontinued (Course of therapy completed)Comment on above:Take 1 capsule by mouth four times daily.24 hr dilTIAZem hydrochloride 180 mg extended release oral capsule (8 sources)Calcium Channel BlockerStart: 05-12-2019 End: 43-82-9991hngo 1 capsule by mouth once dailyDiltiazem Hcl 180 mg Capsule,Extended Release 24hr Discontinued 180 MG PO Daily May 11, 2019 11:00pm June 19, 2019 11:46am1 ml EPINEPHrine 1 mg/ml injection (3 sources)alpha-Adrenergic Agonist, beta-Adrenergic Agonist, Catecholamine Start: 03-13-2022 End: 45-18-5078RUQVWSHuskq 1 mg/mL (1 mL) 0.3 mg injectionezetimibe 10 mg oral tablet (8 sources)Dietary Cholesterol Absorption InhibitorStart: 04-03-2019 End: 72-50-2605qkqw 1 tablet by mouth once dailyEzetimibe 10 mg Tablet Discontinued 10 MG PO Daily April 02, 2019 11:00pm September 30, 2019 11: 09amflecainide acetate 150 mg oral tablet (17 sources)AntiarrhythmicStart: 10-29-2023 End: 22-68-5146nowr 1 tablet by mouth twice dailyflecainide (Tambocor) 150 mg tablet Indications: Paroxysmal atrial fibrillation (CMS/HCC) Take 1 tablet (150 mg) by mouth 2 times a day. 180 tablet 3 10/29/2023 11/16/2023 Discontinued (Other)Start: 09-17-2023 End: 83-26-1619zaws 1 tablet by mouth every twelve hoursFlecainide 100 mg tablet Discontinued 100 MG PO Q12H September 18, 2023 12:00am November 25, 2023 9:48am Start: 09-17-2023 End: 68-71-4593igsn 1 tablet by mouth twice dailyflecainide (Tambocor) 100 mg tablet Indications: Paroxysmal atrial fibrillation (CMS/HCC) Take 1 tablet (100 mg) by mouth 2 times a day. 180 tablet 3 09/17/2023 10/29/2023 Discontinued (Dose adjustment)Comment on above:Take 1 tablet by mouth every 12 hours. fluticasone propionate 0.05 mg/actuat metered dose nasal spray (8 sources)CorticosteroidStart: 07-11-2024 End: 86-14-0861mkia 2 spray(s) nasal route in the morningfluticasone propionate (FLONASE) 50 mcg/actuation nasal spray Administer 2 sprays into each nostrilin the morning. 16 g 1 07/11/2024 11/28/2024 Discontinued (Therapy completed) hydroCHLOROthiazide 25 mg / metoprolol tartrate 100 mg oral tablet (2 sources)Thiazide Diuretic, beta-Adrenergic Girish End: 72-67-0520xnvatlngit ta-hydroCHLOROthiaz (LOPRESSOR HCT) 100-25 mg per tablethydrocortisone 100 mg injection (3 sources)CorticosteroidStart: 03-13-2022 End: 81-85-8749uoifxcejjjtkwl sodium succinate (PF) 100 mg injection (Solu-CORTEF)hyoscyamine sulfate 0.125 mg sublingual tablet (11 sources) End: 34-12-4312wbxunzjyxmh (LEVSIN) 0.125 mg SL tablet 03/30/2024 Discontinued (Therapy completed)iohexol (OMNIPaque) 350 mg iodine/mL solution 70 mL (2 sources)Start: 08-15-2024 End: 41-46-602941 mL, intravenous, Once in imaging, Starting on 08/15/24 at 1151, For 1 doseStart: 04-07-2024 End: 11-69-990334 mL, intravenous, Once in imaging, Starting on Theresa 04/07/24 at 1217, For 1 doseiv contrast (will be provided with radiology test) (20 sources)Start: 09-30-2023 End: 95-73-7810uu contrast (will be provided with radiology test) Indications: Pancreatic cyst MRI PANC/JEANIE Inject, intravenously, once for 1 dose. No IV access, insert saline lock prior to the beginning of sedation, infusion, injection of imaging exam. Discontinue saline lock post exam. If Pt. has a central lineor IVAD, may access for administration according to line specific nursing protocol. Once exam is complete flush line and de-access according to line specific nursing protocol in the MR contrast administration guidelines link. 1 Each 09/30/2023 09/30/2024 Discontinued (Discontinued by Patient)Start: 68-35-4690vs contrast (will be provided with radiology test) Indications: Pancreatic cyst MRI PANC/JEANIE Inject, intravenously, once for 1 dose. No IV access, insert saline lock prior to the beginning of sedation, infusion, injection of imaging exam. Discontinue saline lock post exam. If Pt. has a central lineor IVAD, may access for administration according to line specific nursing protocol. Once exam is complete flush line and de-access according to line specific nursing protocol in the MR contrast administration guidelines link. 1 Each 09/30/2023 ActiveStart: 94-50-4610hv contrast (will be provided with radiology test) Indications: Pancreatic cyst MRI PANC/JEANIE Inject, intravenously, once for 1 dose. No IV access, insert saline lock prior to the beginning of sedation, infusion, injection of imaging exam. Discontinue saline lock post exam. If Pt. has a central lineor IVAD, may access for administration according to line specific nursing protocol. Once exam is complete flush line and de-access according to line specific nursing protocol in the MR contrast administration guidelines link. 1 Each 0 09/30/2023 ActiveStart: 03-27-2022 End: 04-72-3101nh contrast (will be provided with radiology test) MRI Cardiac w/Qflow Inject, intravenously, once for 1 dose. No IV access, insert saline lock prior to the beginning of sedation, infusion, injectionof imaging exam. Discontinue saline lock post exam. If Pt has a central line or IVAD, may access for administration according to line specific nursing protocol. Once exam is complete flush line and de-access according to line specific nursing protocol in the MR contrast administration guidelines link 1 Each 0 03/27/2022 03/28/2022 ActiveStart: 06-20-2021 End: 99-21-9164fk contrast (will be provided with radiology test) MRI PANC/JEANIE Inject, intravenously, once for 1 dose. No IV access, insert saline lock prior to the beginning of sedation, infusion, injection of imaging exam. Discontinue saline lock post exam. If Pt. has a central line or IVAD, may access for admin istration according to line specific nursing protocol. Once exam is complete flush line and de-access according to line specific nursing protocol in the MR contrast administration guidelines link. 1 Each 0 06/20/2021 07/31/2022 Discontinued (Course of therapy completed)Start: 03-35-3191jz contrast (will be provided with radiology test) MRI PANC/JEANIE Inject, intravenously, once for 1 do se. No IV access, insert saline lock prior [...] administration guidelines link. 1 Each 0 06/20/2021 SuspendedStart: 37-49-2856tc contrast (will be provided with radiology test) [...] administration guidelines link. 1 Each 0 06/20/2021 ActiveComment on above:MRI PANC/JEANIE Inject, intravenously, once for 1 dose. No IV access, insert saline lock prior to the b eginning of sedation, infusion, injection of imaging exam. Discontinue saline lock post exam. If Pt. has a central line or IVAD, may access for administration according to line specific nursing protocol. Once exam is complete flush line and de-access according to line specific nursing protocol in the MR contrast administration guidelines link.MRI Cardiac w/Qflow Inject, intravenously, once for 1 dose. No IV access, insert saline lock prior to the beginning of sedation, infusion, injection of imaging exam. Discontinue saline lock post exam. If Pt has a central line or IVAD, may access for administration according to line specific nursingprotocol. Once exam is complete flush line and de-access according to line specific nursing protocol in the MR contrast administration guidelines link10 ml lidocaine hydrochloride 10 mg/ml injection (4 sources)Antiarrhythmic, Amide Local AnestheticStart: 03-10-2025 End: 47-65-5425giqeivdqf (PF) 10 mg/mL (1 %) 4 mL injection (XYLOCAINE)Start: 03-10-2025 End: mL, Injection - FOR ORTHO USE ONLY, ONCE, 1 dose, Starting on Thu03/10/25 at 0948, Until Thu03/10/25 at 0948Start: 05-20-2024 End: 89-76-3054orqtuidjp (PF) 10 mg/mL (1 %) 4 mL injection (XYLOCAINE)Start: 05-20-2024 End: mL, Injection - FOR ORTHO USE ONLY, ONCE, 1 dose, Starting on Thu05/20/24 at 1028, Until Thu05/20/24 at 1028lisinopril 20 mg oral tablet (16 sources)Angiotensin Converting Enzyme InhibitorStart: 09-18-2019 End: 01-94-7358keyl 1 tablet by mouth once dailyLisinopril 20 mg Tablet Discontinued 20 MG PO Daily September 18, 2019 12:00am September 30, 2019 1 1:09amStart: 04-03-2019 End: 82-89-2056jrwe 1 tablet by mouth once dailyLisinopril 20 mg Tablet Discontinued 20 MG PO Daily April 02, 2019 11:00pm April 09, 2019 11:17am loperamide hydrochloride 2 mg oral capsule (8 sources)Opioid AgonistStart: 05-12-2019 End: 01-18-4856nhtb 1 capsule by mouth every four hours as needed for diarrhea Loperamide 2 mg Capsule Discontinued 2 MG PO Q4H as needed for Diarrhea May 11, 2019 11:00pm June 19, 2019 11:46ammagnesium oxide 400 mg oral tablet (8 sources)Start: 04-09-2019 End: 94-24-6609dssk 1 tablet by mouth twice dailyMagnesium Oxide 400 mg (241.3 mg magnesium) Tablet Discontinued 400 MG PO Twice daily 60 April 08, 2019 11:00pm September 18, 2019 3:31pmMesalamine (Lialda) 1.2 gram Tablet,Delayed Release (Dr/Ec) (8 sources)Start: 05-12-2019 End: 99-89-5340fsja 4 tablets by mouth once dailyMesalamine (Lialda) 1.2 gram Tablet,Delayed Release (Dr/Ec) Discontinued 4.8 GM PO Daily May 12, 2019 2:54pm June 19, 2019 12:45pmStart: 05-12-2019 End: 27-02-0926bqcj 4 tablets by mouth once dailyMesalamine (Lialda) 1.2 gram Tablet,Delayed Release (Dr/Ec) Discontinued 4.8 GM PO Daily May 12, 2019 12:00am June 19, 2019 12:45pmStart: 05-12-2019 End: 46-89-2675mqhe 4 tablets by mouth once dailyMesalamine (Lialda) 1.2 gram Tablet,Delayed Release (Dr/Ec) Discontinued 4.8 GM PO Daily May 11, 2019 11:00pm June 19, 2019 11:45ammethylPREDNISolone 40 mg injection (20 sources)CorticosteroidStart: 01-26-2025 End: 72-80-182912 mg, INTRAVENOUS, ONCE, 1 dose, On Theresa 01/26/25 at 0900Start: 12-01-2024 End: 48-52-388804 mg, INTRAVENOUS, ONCE, 1 dose, On Theresa 12/01/24 at 0900Start: 10-06-2024 End: 75-08-717878 mg, INTRAVENOUS, ONCE, 1 dose, On Theresa 10/06/24 at 0900Start: 08-11-2024 End: 15-78-990334 mg, INTRAVENOUS, ONCE, 1 dose, On Theresa 08/11/24 at 1000Start: 07-11-2024 End: 34-99-0500spaf 1 tablet by mouth in the morningmethylPREDNISolone (MEDROL, CELESTE,) 4 mg tablet Take 1 tablet (4 mg total) by mouth in the morning. follow package directions. 21 tablet 07/11/2024 10/11/2024 Discontinued (Therapy completed)Start: 06-14-2024 End: 74-10-870983 mg, INTRAVENOUS, ONCE, 1 dose, On Thu06/14/24 at 0930Start: 04-19-2024 End: 53-00-199056 mg, INTRAVENOUS, ONCE, 1 dose, On Thu04/19/24 at 1030Start: 02-23-2024 End: 01-68-3441xjoarwBWPSPDFcjpoh sod succinate(PF) 40 mg injection (SOLU-Medrol)Start: 12-24-2023 End: 90-39-6374fvwewmTMCBRMMkemub sod succinate(PF) 60 mg injection (SOLU-Medrol)Start: 03-21-2021 End: 96-29-0683wovmzyNYNIBUWvzqsy (MEDROL DOSE-PACK) 4 mg Dose-Pack As Instructed per package 1 Package 0 03/21/2021 01/01/2022 Discontinued (Other) Start: 39-67-8808kptymgIQNCTGVhmrio (MEDROL DOSE-PACK) 4 mg Dose-Pack As Instructed per package 1 Package 0 03/21/2021 ActiveStart: 09-18-2019 End: 97-68-3123uoeo 40 mg intravenously every three monthsMethylprednisolone Sodium Succ 40 mg Recon Soln Discontinued 40 MG IV As Directed September 18, 2019 12:00am September 30, 2019 11:10am EVERY THREE MONTHSStart: 04-03-2019 End: 38-51-2936Dpzopdiivvqkoonspq Sodium Succ 40 mg Recon Soln Discontinued 60 MG IV As Directed April 02, 201911:00pm May 12, 2019 1:58pmStart: 04-03-2019 End: 31-48-3701Kknaxrlnrofvisqigr Sodium Succ Discontinued 60 MG IV As Directed April 03, 2019 12:00am May 12, 2019 2:58pmComment on above:As Instructed per packagemycophenolate mofetil 500 mg oral tablet (20 sources)Start: 04-03-2019 End: 90-98-1643uxuv 1 tablet by mouth at bedtimeMycophenolate Mofetil 500 mg Tablet Discontinued 1000 MG PO Bedtime April 02, 2019 11:00pm 2023 9:47amStart: 04-03-2019 End: 48-26-2492vypm 1000 mg by mouth at bedtimeMycophenolate Mofetil Discontinued 1000 MG PO Bedtime April 03, 2019 12:00am November 25, 2023 10: 47amStart: 12-25-2016 End: 49-10-8298xyvjwiydzfypg (CELLCEPT) 500 mg tablet Take 2 tablets (1,000 mg total) by mouth. 0 12/25/2016 09/01/2023 Discontinued (Discontinued by another clinician)Comment on above:take 2 tablets by mouth dailytake 1 tablet by mouth dailyomeprazole 40 mg delayed release oral capsule (9 sources)Proton Pump InhibitorStart: 09-04-2021 End: 24-05-8754vjrw 1 capsule by mouth twice dailyomeprazole (PRILOSEC) 40 mg capsule Indications: Epigastric pain Take 1 capsule by mouth twice daily. 60 capsule 3 09/04/2021 09/12/2021 DiscontinuedStart: 04-08-2019 End: 53-39-2808txic 1 capsule by mouth once dailyOmeprazole 40 mg capsule,delayed release(DR/EC) Discontinued 40 MG PO Daily April 07, 2019 11:00pm February 07, 2022 4:10pmComment on above:Take 1 capsule by mouth twice daily.raNITIdine 150 mg oral tablet (2 sources)Histamine-2 Receptor AntagonistStart: 06-11-2017 End: 79-62-4364wlkcqolwww (ZANTAC) 150 mg tablet Take 1 tablet (150 mg total) by mouth. 0 06/11/2017 09/01/2023 Discontinued (Therapy completed)semaglutide, weight loss, (WEGOVY) 0.25 mg/0.5 mL pen injector (2 sources)Start: 06-30-2024 End: 05-22-2296zzuaql 0.5 mL by subcutaneous injection every weeksemaglutide, weight loss, (WEGOVY) 0.25 mg/0.5 mL pen injector Inject 0.5 mL (0.25 mg total) under the skin once a week. 2 mL 2 06/30/2024 07/11/2024 Discontinued (Formulary change)Start: 24-79-4122yrbxly 0.5 mL by subcutaneous injection every week semaglutide, weight loss, (WEGOVY) 0.25 mg/0.5 mL pen injector Inject 0.5 mL (0.25 mg total) under the skin once a week. 2 mL 2 06/30/2024 Activesimvastatin 40 mg oral tablet (7 sources)HMG-CoA Reductase Inhibitor End: 70-53-1668dvevftigjnr (ZOCOR) 40 mg tablet Take 1 tablet (40 mg total) by mouth. 02/16/2024 Discontinued (Discontinued by another clinician)spironolactone 50 mg oral tablet (20 sources)Aldosterone AntagonistStart: 09-30-2019 End: 74-89-7169uufdpdbtlfmnxk (ALDACTONE) 50 mg tablet Take 1 tablet (50 mg total) by mouth. 03/22/2024 12/29/2024DiscontinuedStart: 09-18-2019 End: 23-78-6674hmgy 1 tablet by mouth once dailySpironolactone 25 mg Tablet Discontinued 25 MG PO Daily September 18, 2019 12:00am September 30, 2019 11:09amComment on above:Take 50 mg by mouth once daily.tixagevimab 300 mg intramuscular injection (EVUSHELD) (1 source)Start: 03-13-2022 End: 32-63-1726fknvggqmzod 300 mg intramuscular injection (EVUSHELD)torsemide 20 mg oral tablet (8 sources)Loop DiureticStart: 09-18-2019 End: 20-87-8399pcuj 2 tablets by mouth once dailyTorsemide 20 mg Tablet Discontinued 40 MG PO Daily September 18, 2019 12:00am September 30, 2019 11 :09amStart: 09-18-2019 End: 61-61-5925mltq 40 mg by mouth once dailyTorsemide Discontinued 40 MG PO Daily September 18, 2019 1:00am September 30, 2019 12:09pm1 ml triamcinolone acetonide 40 mg/ml injection (6 sources)CorticosteroidStart: 03-10-2025 End: 35-82-6800sqmcqkdmokzka acetonide 40 mg injection (KeNALog 40)Start: 03-10-2025 End: 44-23-593474 mg, Injection - FOR ORTHO USE ONLY, ONCE, 1 dose, Starting on Thu03/10/25 at 0948, Until Thu03/10/25 at 0948Start: 11-28-2024 End: 92-73-0386ilhohpgffcthk acetonide (KENALOG-40) injection 40 mgStart: 11-28-2024 End: 50-95-047370 mg, intra-articular, Once, On Thu11/28/24 at 1445, For 1 dose Start: 05-20-2024 End: 41-79-2695lonfmkucaanos acetonide 40 mg injection (KeNALog 40)Start: 05-20-2024 End: 32-13-137249 mg, Injection - FOR ORTHO USE ONLY, ONCE, 1 dose, Starting on Thu05/20/24 at 1028, Until Thu05/20/24 at 1028Turmeric extract (8 sources)Start: 04-03-2019 End: 08-95-2947swqc 400 mg by mouth once dailyTurmeric Discontinued 400 MG PO Daily April 03, 2019 5:52pm June 19, 2019 12:48pmStart: 04-03-2019 End: 32-93-5137cmrd 1 capsule by mouth once dailyTurmeric 400 mg Capsule Discontinued 400 MG PO Daily April 02, 2019 11:00pm June 19, 2019 11 :48amStart: 04-03-2019 End: 22-29-1038bsom 400 mg by mouth once dailyTurmeric Discontinued 400 MG PO Daily April 03, 2019 12:00am June 19, 2019 12:48pmStart: 04-03-2019 End: 85-34-8279whew 400 mg by mouth once dailyTurmeric Discontinued 400 MG PO Daily April 02, 2019 11:00pm June 19, 2019 11:48amvancomycin 125 mg oral capsule (11 sources)Glycopeptide AntibacterialStart: 10-29-2022 End: 87-99-5840csymvsbzfi (VANCOCIN) 125 mg capsuleStart: 10-01-2022 End: 39-56-5998zovt 1 capsule by mouth four times dailyvancomycin (VANCOCIN HCL) 125 mg capsule Indications: C. difficile colitis Take 1 capsule by mouth four times daily for 14 days. 56 capsule 0 10/01/2022 10/15/2022 ActiveStart: 02-24-2022 End: 61-59-2902ghzb 1 capsule by mouth four times dailyvancomycin (VANCOCIN) 125 mg capsule Indications: C. difficile diarrhea Take 1 capsule by mouth four times daily for 10 days. 40 capsule 0 02/24/2022 03/06/2022 ActiveComment on above: Take 1 capsule by mouth four times daily for 10 days.Take 1 capsule by mouth four times daily for 14 days.Take 1 capsule by mouth four times daily for 14 days, THEN 1 capsule twice daily for 7 days, THEN 1capsule once daily for 7 days, THEN 1 capsule every other day in the morning for 14 days.Vitamin B Complex Oral Tablet (8 sources)Start: 77-95-7556qvuo 1 tablet by mouth once dailyVitamin B Complex Oral Tablet TAKE 1 TABLET DAILY. Quantity: 0 Refills: 0 Ordered: 25-Apr-2019 DO Start : 25-Apr-2019 Activewarfarin sodium 5 mg oral tablet (15 sources)Vitamin K AntagonistStart: 11-22-2010 End: 95-26-1969uhbz 1 tablet by mouth once dailyWarfarin 5 mg Tablet Discontinued 5 MG PO Daily April 02, 2019 11:00pm May 08, 2019 10:49 am Problems Active Problems Problem ClassificationProblemDateDocumented DateEpisodic/ChronicAbdominal pain (12 sources)Epigastric pain; Translations: [Epigastric pain]Onset: 2022 18-94-2458NnpsbcjkOdoihcar foot deformities (20 sources)Acquired hallux valgus; Translations: [Hallux valgus (acquired), unspecified foot]Onset: 281695-04-6705BaiiqwuCgapqvsxvgdjwf/social admission (1 source)Repeated prescription; Translations: [Encounter for issue of repeat prescription]EpisodicAnxiety disorders (1 source)Anxiety; Translations: [Anxiety disorder, unspecified]03-30-2024 ChronicAortic; peripheral; and visceral artery aneurysms (20 sources)Aneurysm of ascending aorta; Translations: [Thoracic aortic aneurysm, without rupture]Onset: 618767-38-9661KifnqdxTvbxiq (20 sources)Reactive airway disease; Translations: [Unspecified asthma, uncomplicated]Onset: 954572-06-3429LcdcoruWejjonb dysrhythmias (20 sources)Paroxysmal atrial fibrillation; Translations: [Atrial fibrillation] Onset: 02-22-2010 Resolved: 882557-46-5145HyvttrsTxkgkpk kidney disease (20 sources)Chronic kidney disease stage 3; Translations: [Stage 3 chronic kidney disease]Onset: 486115-04-6976QbcnsksGksmqln kidney disease (2 sources)Chronic kidney disease; Translations: [Chronic kidney disease, stage 3a]Onset: 55-43-0512Qglrcnl ulcer of skin (4 sources)Ulcer of toe; Translations: [Non-pressure chronic ulcer of other part of right foot limited to breakdown of skin]ChronicComplications of surgical procedures or medical care (1 source)History of parathyroidectomy; Translations: [Postprocedural hypoparathyroidism]ChronicCongestive heart failure; nonhypertensive (20 sources)Chronic congestive heart failure; Translations: [Heart failure, unspecified]Onset: 04-17-2019 Resolved: 889220-40-3944EcwxbbrUntrdkuzr congenital anomalies (1 source)Congenital pancreatic cyst; 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] 86-17-8607GacnypqYpuqmcbug of lipid metabolism (20 sources)Mixed hyperlipidemia; Translations: [Mixed hyperlipidemia]Onset: 101321-29-9072HbahtnsSipwxjuernzgms and diverticulitis (20 sources)Diverticulosis of large intestine without perforation or abscess without bleeding; Translations: [Diverticulitis of sigmoid colon]Onset: 557056-14-0284GzqglpzGkukljkjee disorders (3 sources)Gastroesophageal reflux disease without esophagitis; Translations: [Gastro-esophageal reflux disease without esophagitis]Onset: 06-16-2025 61-33-9150PbnwdnfTkeivsvxw hypertension (20 sources)Essential hypertension; Translations: [Essential (primary) hypertension]Onset: 374582-14-6756PnfxezmBopmm of unknown origin (1 source)Fever, unspecified; Translations: [FEVER UNSPECIFIED]Onset: 09-30-2022 EpisodicGastroduodenal ulcer (except hemorrhage) (20 sources)Gastric ulcer; Translations: [Gastric ulcer, unspecified as acute or chronic, without hemorrhage orperforation]Onset: hronic Heart valve disorders (1 source)Nonrheumatic aortic (valve) stenosis; Translations: [Nonrheumatic aortic (valve) stenosis]Onset: 69-66-2170MdvnfinIvdfbmgnpu infection (3 sources)Clostridium difficile diarrhea; Translations: [Enterocolitis due to Clostridium difficile, not specified as recurrent]Onset: 34-69-8464Bicvvrap Malaise and fatigue (9 sources)Asthenia; Translations: [Weakness]75-88-2334HclfpwsoTqfmzwtkyr disorders (1 source)Postmenopausal bleeding; Translations: [Postmenopausal bleeding] 43-34-8905IwosiplYxst disorders (20 sources)Chronic depression; Translations: [Chronic depression]Onset: 870162-12-5733ZstvwiyXppedns (1 source)Pain in toe; Translations: [Tinea unguium]76-34-0218IdoylrxrLfctscdko; nephrosis; renal sclerosis (20 sources)Membranous glomerulonephritis; 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]Onset: ChronicNoninfectious gastroenteritis (10 sources)Inflammatory bowel disease; Translations: [Noninfective gastroenteritis and colitis, unspecified]71-81-5186WpxidunkOmqjwxxoivb deficiencies (20 sources)Vitamin D deficiency; Translations: [Vitamin D deficiency, unspecified]Onset: 312148-38-7429CsusyxqUdmulldtafdzmw (20 sources)Degenerative joint disease of ankle AND/OR foot; Translations: [Primary osteoarthritis, unspecifiedankle and foot]Onset: 01-02-2014 Resolved: 215281-25-6933WkiowghAefzk aftercare (17 sources)Drug therapy finding; Translations: [Other half-way (current) drug therapy]EpisodicOther aftercare (5 sources)Long-term current use of 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; Translations: [prison (current) use of 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]EpisodicOther aftercare (3 sources)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; Translations: [GAS PLANT TECHNICIAN CURRNT USE ANTICOAGULANTS]Onset: 67-64-4577JyxvznjaGubsq aftercare (20 sources)Long-term current use of anticoagulant; Translations: [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]Onset: 906238-00-5870PxrwalerEuxyw aftercare (10 sources)Surgical follow-up; Translations: [Encounter for follow-up examination after completed treatment for conditions other than malignant neoplasm]Onset: 079129-73-6380RhjoprdrEnjwc aftercare (1 source)Encounter for follow-up examination after completed treatment for conditions other than malignant neoplasm; Translations: [Surgery follow-up] Onset: 91-10-6595UhpgqqhuBjyfm bone disease and musculoskeletal deformities (7 sources)Osteopenia; Translations: [Other specified disorders of bone density and structure, unspecified site]EpisodicOther bone disease and musculoskeletal deformities (2 sources)Disorder of bone; Translations: [Disorder of bone, unspecified] 65-38-6697AuoxeoejJfqeh circulatory disease (6 sources)Presence of other cardiac implants and grafts; Translations: [Other specified cardiac device in situ]Onset: 846108-18-4017JyowsxvLndin circulatory disease (8 sources)Low blood pressure; Translations: [Hypotension, unspecified] 11-49-2960XmbghjnoCngzc connective tissue disease (20 sources)History of repair of hip joint; Translations: [Presence of right artificial hip joint]Onset: 807668-73-8915TvpndjmGjkeb connective tissue disease (20 sources)History of total hip arthroplasty; Translations: [Presence of unspecified artificial hip joint]Onset: 027385-41-4439AfqbzlsSlgmf connective tissue disease (1 source)Tendinosis; Translations: [Other specified enthesopathies of unspecified lower limb, excluding foot]43-02-1010LrpcwsyyYoqii connective tissue disease (1 source)Arthrodesis status; Translations: [History of fusion of talotibial joint and subtalar joint]Onset: 11-69-9269GstolnlzWkxll endocrine disorders (1 source)Primary hyperparathyroidism; Translations: [Primary hyperparathyroidism]ChronicOther endocrine disorders (20 sources)Disorder of parathyroid gland; Translations: [Unspecified disorder of parathyroid gland]Onset: 776811-48-6208YtquiesXwfid endocrine disorders (2 sources)Hyperparathyroidism, unspecified; Translations: [Hyperparathyroidism, unspecified]Onset: 85-09-4735QdsplvtAyaaz gastrointestinal disorders (1 source)Bile acid malabsorption syndrome; 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]85-58-0033QcbkvzdMlvdk gastrointestinal disorders (1 source)Other intestinal malabsorption; Translations: [Bile acid malabsorption syndrome (HCC)]Onset: 72-92-7241XjcpnkvEitux gastrointestinal disorders (20 sources)Diarrhea; Translations: [Diarrhea, unspecified]EpisodicOther gastrointestinal disorders (6 sources)Diarrhea, unspecified; Translations: [DIARRHEA UNSPECIFIED]Onset: 91-37-9398MqdgruptWjxkk gastrointestinal disorders (1 source)Diarrhea of presumed infectious origin; Translations: [Diarrhea, unspecified]42-55-6356LgxfqqkoMnban hematologic conditions (8 sources)High troponin I level; Translations: [Other specified abnormalities of plasma proteins]52-98-4923IzazlmvnXijrw hematologic conditions (8 sources)Raised cardiac enzyme or marker; Translations: [Other specified abnormalities of plasma proteins]31-54-6867BxjvxcihAhjxz inflammatory condition of skin (1 source)Intertrigo; Translations: [Erythema intertrigo]93-41-1901WigjjngbVeafi inflammatory condition of skin (1 source)Erythema intertrigo; Translations: [Erythema intertrigo]Onset: 80-53-9819GmwogtqdEakzr lower respiratory disease (8 sources)Hypoxia; Translations: [Hypoxemia]21-82-9925KzefenqxDjifv lower respiratory disease (1 source)Solitary pulmonary nodule; Translations: [SOLITARY PULMONARY NODULE] Onset: 90-10-4583TbnjpjsqLipnk lower respiratory disease (1 source)Dyspnea on exertion; Translations: [Other forms of dyspnea]10-11-2024 EpisodicOther lower respiratory disease (1 source)Other forms of dyspnea; Translations: [Other forms of dyspnea]Onset: 52-89-3431CfhmhomvPbqok nervous system disorders (20 sources)Plantar nerve lesion; Translations: [Lesion of plantar nerve, unspecified lower limb]Onset: 690790-36-4244WaazrapTtnjy nervous system disorders (8 sources)Metabolic encephalopathy; Translations: [Metabolic encephalopathy] 82-57-1657BvxqoieHtqmo nervous system disorders (7 sources)Disorder of brain; Translations: [Encephalopathy, unspecified] 32-20-1679CsuejjyMucds nervous system disorders (20 sources)Carpal tunnel syndrome; Translations: [Carpal tunnel syndrome, unspecified upper limb]Onset: 941828-21-4715HjhzlduYfaaq nervous system disorders (2 sources)Impairment of balance; Translations: [Other abnormalities of gait and mobility]EpisodicOther nervous system disorders (1 source)Postoperative pain ; Translations: [Other acute 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 pain] 08-14-2890HsodqwwwBxddv non-traumatic joint disorders (6 sources)Charcot's arthropathy; Translations: [Charcot's joint, unspecified site]70-64-2091TivdhqkFqgqm non-traumatic joint disorders (1 source)Arthropathy associated with a neurological disorder; Translations: [Charcot's joint, unspecified site]01-29-3536TsirhmfWzgaj non-traumatic joint disorders (2 sources)Charcot's joint, unspecified site; Translations: [Charcot arthropathy]Onset: 22-46-5961MoyohnsMemoc non-traumatic joint disorders (4 sources)Pain in left knee; Translations: [Pain in joint, lower leg]03-15-2024 EpisodicOther non-traumatic joint disorders (1 source)Hip pain; Translations: [Pain in right hip]16-59-6986VevetyafHacxa non-traumatic joint disorders (1 source)Acute ankle pain; Translations: [Pain in right ankle and joints of right foot]70-21-2505IhmpcxyaOhejw non-traumatic joint disorders (1 source)Pain in right ankle and joints of right foot; Translations: [Pain in right ankle and joints of right foot]Onset: 76-80-8333IkcjmbggLchwx nutritional; endocrine; and metabolic disorders (20 sources)Body mass index 40+ - severely obese; Translations: [Morbid (severe) obesity due to excess calories]Onset: 926089-09-2272EtqudevBzkyg nutritional; endocrine; and metabolic disorders (20 sources)Obese class II; Translations: [Obesity, unspecified]Onset: 661270-51-3448TbsluzqIwtxg nutritional; endocrine; and metabolic disorders (20 sources)Morbid obesity; Translations: [Morbid (severe) obesity due to excess calories]Onset: 09-13-2021 Resolved: 146984-94-6473GutoognVazdd nutritional; endocrine; and metabolic disorders (20 sources)Hyperbilirubinemia; Translations: [Other disorders of bilirubin metabolism]Onset: 277793-59-0243ApptwpvMnkfs nutritional; endocrine; and metabolic disorders (7 sources)Obesity; Translations: [Obesity, unspecified]01-53-3727UplyfqlWrfld nutritional; endocrine; and metabolic disorders (3 sources)Obesity, unspecified; Translations: [Obesity, unspecified]Onset: 98-11-9708UpogjfuPzztn nutritional; endocrine; and metabolic disorders (20 sources)Hypercalcemia; Translations: [Hypercalcemia]Onset: 02-24-6471Qkvejip Other nutritional; endocrine; and metabolic disorders (8 sources)Severe obesity; Translations: [Morbid obesity]ChronicOther nutritional; endocrine; and metabolic disorders (3 sources)Body mass index (BMI) 40.0-44.9, adult; Translations: [BODY MASS INDEX BMI 40.0-44.9 ADULT]Onset: 72-96-4561IhnmqudCoeuu nutritional; endocrine; and metabolic disorders (1 source)Hypomagnesemia; Translations: [Hypomagnesemia]37-56-4483PzljjzePqfyo nutritional; endocrine; and metabolic disorders (1 source)Morbid (severe) obesity due to excess calories; Translations: [Morbid (severe) obesity due to excess calories]Onset: 20-60-3235MlsbridQscrr nutritional; endocrine; and metabolic disorders (2 sources)Body mass index (BMI) 39.0-39.9, adult; Translations: [Body mass index (BMI) 39.0-39.9, adult]Onset: 97-86-7055TpgyhayJlnew skin disorders (6 sources)Callosity; Translations: [Corns and callosities]EpisodicOther upper respiratory disease (20 sources)Allergic rhinitis; Translations: [Allergic rhinitis, unspecified] Onset: 308853-78-3703SjohqukBdwnx upper respiratory disease (1 source)Nasal vestibulitis; Translations: [Other specified disorders of nose and nasal sinuses]65-32-5330VmfzyungAztlqgw cyst (1 source)Unspecified ovarian cyst, right side; Translations: [UNSPECIFIED OVARIAN CYST RIGHT SIDE]Onset: 31-67-1972VxfmednwAcrdpvivux disorders (not diabetes) (18 sources)Pancreatitis; Translations: [Acute pancreatitis without necrosis or infection, unspecified]57-68-1733HytfjtvhUhto-; endo-; and myocarditis; cardiomyopathy (except that caused by tuberculosis or sexually transmitted disease) (1 source)Hypertrophic obstructive cardiomyopathy; Translations: [Obstructive hypertrophic cardiomyopathy]ChronicPulmonary heart disease (20 sources)Pulmonary hypertension; Translations: [Pulmonary hypertension, unspecified]Onset: 140537-07-6187OeumwrfCwxucgpf enteritis and ulcerative colitis (20 sources)Ulcerative colitis; Translations: [Ulcerative colitis, unspecified, without complications]Onset: 465483-57-3302QdxvirxYxhuvlur codes; unclassified (20 sources)Sleep apnea; Translations: [Sleep apnea, unspecified]Onset: 791911-06-2155GsiqcpbXexuwstx codes; unclassified (20 sources)Obstructive sleep apnea syndrome; Translations: [Obstructive sleep apnea (adult) (pediatric)]Onset: 860681-32-9480FysibxgEelfdeia codes; unclassified (6 sources)Obstructive sleep apnea (adult) (pediatric); Translations: [Obstructive sleep apnea (adult)(pediatric)]Onset: 35-52-0751BcvuwmoMkpfwlae codes; unclassified (8 sources)Obstructive sleep apnea of adult; Translations: [Obstructive sleep apnea (adult)(pediatric)]ChronicResidual codes; unclassified (8 sources)Altered mental status; Translations: [Altered mental status, unspecified]77-22-4584YrwxbipjQfglbxjo codes; unclassified (3 sources)Altered mental status, unspecified; Translations: [Altered mental status]EpisodicResidual codes; unclassified (3 sources)Postmenopausal state; Translations: [Asymptomatic menopausal state] EpisodicResidual codes; unclassified (1 source)Other specified 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 states; Translations: [OTH SPECIFIED POSTPROCEDURAL STATES]Onset: 96-62-3784RlqojqobRpcemxoy codes; unclassified (4 sources)History of parathyroidectomy; Translations: [Other specified 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 states]52-67-8941PlqesdygZexvntrx codes; unclassified (1 source)At risk of disease; Translations: [Other specified personal risk factors, not elsewhere classified]05-68-1681StrffyviJgqzbfms codes; unclassified (1 source)Pain; Translations: [Pain, unspecified]41-63-5258RkbwhunjQgqnflpk codes; unclassified (1 source)Edema of foot; Translations: [Localized edema]74-69-5688Zowgamfx Residual codes; unclassified (1 source)Preoperative -88-8816ZiomudwsYpzz and subcutaneous tissue infections (1 source)Cellulitis of toe; Translations: [Cellulitis of right toe]Episodic Systemic lupus erythematosus and connective tissue disorders (20 sources)Systemic lupus erythematosus; Translations: [Systemic lupus erythematosus, unspecified]Onset: 018098-78-1932CikoocoLsstdop disorders (20 sources)Hypothyroidism; Translations: [Hypothyroidism, unspecified]Onset: 128634-67-0020ZzpocxfHprnjlxulxgv (3 sources)Encntr for general adult medical exam w/o abnormal findings; Translations: [Encntr for general adult medical exam w/o abnormal findings] Onset: 45-15-2616Qpkjorldavya (3 sources)prison (current) use of anticoagulants; Translations: [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]Onset: 42-88-6788Aanlrthqxrdl (1 source)Other long term care social worker (current) drug therapyOnset: 98-33-0111Hghnlphsjuwz (2 sources)Thoracic aortic aneurysm, without rupture, unspecified; Translations: [Thoracic aortic aneurysm, without rupture, unspecified]Onset: 09-17-2022 Unclassified (1 source)CONTACT W/AND (SUSP) EXPOS COVID-19; Translations: [CONTACT W/AND (SUSP) EXPOS COVID-19]Onset: 28-70-3522Staksbrgvnkj (4 sources)Other persistent atrial fibrillation; Translations: [Other persistent atrial fibrillation (Multi)]Onset: 49-53-6298Swrhwcxfqmsh (1 source)Foot SwellingOnset: 09-22-6000Dqvimifyjffi (2 sources)Aneurysm of the ascending aorta, without rupture; Translations: [Aneurysm of the ascending aorta, without rupture]Onset: 46-34-5383Ijmlhinuhfkr (1 source)MAWOnset: 65-28-8783Ajjvnrfrrdcd (2 sources)Closed fracture of left pwfc84-20-2845Jgljdtqumgpw (1 source)Thoracic aortic aneurysm, without rupture, unspecified (CMS-HCC); Translations: [Thoracic aortic aneurysm, without rupture, unspecified (CMS-HCC)] Onset: 85-50-5047Qumubpufrfta (1 source)Other ventricular tachycardia; Translations: [Other ventricular tachycardia]Onset: 71-11-2393Hpciyozixqhy (1 source)Ascending aortic aneurysm, unspecified whether ruptured; Translations: [Ascending aortic aneurysm, unspecified whether ruptured]Onset: 10-29-2021 Unclassified (1 source)Obesity, Class III, BMI 40-49.9 (morbid obesity) (HCC); Translations: [Obesity, Class III, BMI 40-49.9 (morbid obesity) ([facility])]Onset: 12-19-2020 Unclassified (1 source)Established PatientOnset: 72-64-1459Flgbhayrtnlv (1 source)Obesity, Class III, BMI 40-49.9 (morbid obesity); Translations: [Obesity, Class III, BMI 40-49.9 (morbid obesity)]Onset: 74-53-0413Opsqaaa tract infections (19 sources)Urinary tract infectious disease; Translations: [Urinary tract infection, site not specified]79-07-6099Fzcjgocd Past or Other Problems Problem ClassificationProblemDateDocumented DateEpisodic/ChronicBiliary tract disease (20 sources)Biliary calculus; Translations: [Calculus of gallbladder without cholecystitis without obstruction]Onset: 414593-78-6364GtihycqbSltbwvo obstructive pulmonary disease and bronchiectasis (20 sources)Mucopurulent chronic bronchitis; Translations: [Mucopurulent chronic bronchitis]Onset: 03-30-2024 Resolved: 330681-00-7320WzozollXvqwwahrnbo and hemorrhagic disorders (20 sources)Thrombocytopenic disorder; Translations: [Thrombocytopenia, unspecified]Onset: 04-10-2023 Resolved: 112962-77-3770KhixfnrJnvzuvuoez and other anemia (20 sources)Anemia; Translations: [Anemia, unspecified]Onset: 03-21-2024 60-29-0858XgtqkvmyGbimojgtha and other anemia (5 sources)Anemia, unspecified; Translations: [Anemia, unspecified]Onset: 28-62-4232JpmedukdMroqz and electrolyte disorders (20 sources)Hypokalemia; Translations: [Hypokalemia]Onset: EpisodicFracture of lower limb (9 sources)Closed fracture of navicular bone of foot; Translations: [Nondisplaced fracture of navicular [scaphoid] of right foot, initial encounter for closed fracture]Onset: 733079-83-6971TxiptvmdIvkeohxx of lower limb (5 sources)Closed fracture of left foot; Translations: [Unspecified fracture of left foot, initial encounter for closed fracture]Onset: 25-19-812666 EpisodicGenitourinary symptoms and ill-defined conditions (20 sources)Proteinuria; Translations: [Proteinuria, unspecified]Onset: 843701-54-6378WymntbibHfrubwlm; including migraine (20 sources)Headache; Translations: [Headache]Onset: EpisodicImmunizations and screening for infectious disease (3 sources)Encounter for immunization; Translations: [Other specified vaccinations against streptococcus pneumoniae [pneumococcus]]Onset: 05-19-2024 EpisodicInflammation; infection of eye (except that caused by tuberculosis or sexually transmitteddisease) (20 sources)Conjunctivitis; Translations: [Unspecified conjunctivitis]Onset: 314845-41-6015YaoqkwylMxvg disorders (20 sources)Mood disordersOnset: 03-30-2024 Resolved: 939284-79-8303Ouwuhrytr of unspecified nature or uncertain behavior (20 sources)Intraductal papillary mucinous neoplasm of pancreas; Translations: [Neoplasm of unspecified behavior of digestive system]Onset: 03-17-2020 04-66-0351MbmaboeeNiegcyocxgy chest pain (20 sources)Chest wall pain; Translations: [Other chest pain]Onset: 03-30-2024 74-64-5447SdwmsbciHrtvi aftercare (20 sources)Patient encounter status; Translations: [Other long term care social worker (current) drug therapy]Onset: 326992-02-6762PkkryrvvCyyjc aftercare (20 sources)Taking high risk medication; Translations: [Other long term care social worker (current) drug therapy]Onset: 06-10-2023 Resolved: 33-71-0822EcbltwmyYqtil aftercare (3 sources)Other long term care social worker (current) drug therapy; Translations: [OTH GAS PLANT TECHNICIAN CURRENT DRUG THERAPY]Onset: 82-37-9603ZozdrquvTuokp aftercare (20 sources)Long-term current use of drug therapy; Translations: [Other half-way (current) drug therapy]Onset: 373676-13-4223KyahbflnKfkgi bone disease and musculoskeletal deformities (1 source)Disorder of bone, unspecified; Translations: [Disorder of bone, unspecified]Onset: 25-42-1655KlojiwclJchxi connective tissue disease (20 sources)Fibromyalgia; Translations: [Fibromyalgia]Onset: 03-10-2012 03-72-1617GqujvgtwTcsjy connective tissue disease (20 sources)Enthesopathy of ankle AND/OR tarsus; Translations: [Other enthesopathy of unspecified foot and ankle]Onset: 933959-92-6283Wasseewy Other connective tissue disease (20 sources)Neuropathy; Translations: [Neuralgia, neuritis, and radiculitis, unspecified]Onset: 210625-70-4621UnefwreaMdzau connective tissue disease (20 sources)Pain in left foot; Translations: [Pain in left foot]Onset: 08-07-2015 Resolved: 092499-06-4905PdntkuouHzzph connective tissue disease (20 sources)Synovitis/tenosynovitis - multiple joints; Translations: [Other synovitis and tenosynovitis, unspecified ankle and foot]Onset: 08-07-2015 55-00-1547SkosvxkcDvstj connective tissue disease (20 sources)Synovitis and tenosynovitis, unspecified; Translations: [Tenosynovitis of foot and ankle]Onset: 302796-97-9008ArwzayayVivzt connective tissue disease (20 sources)Synovitis of joint of foot; Translations: [Synovitis and tenosynovitis, unspecified]Onset: 136264-80-5836IchxkkfpRcgvb connective tissue disease (20 sources)Other synovitis and tenosynovitis, unspecified ankle and foot; Translations: [Tenosynovitis of footand ankle]Onset: 08-07-2015 Resolved: 377575-00-3712UxrfrbriTitkp connective tissue disease (20 sources)Synovitis; Translations: [Synovitis and tenosynovitis, unspecified] Onset: 10-14-2017 Resolved: 405498-43-8117CkdzvzlbVdxqn connective tissue disease (20 sources)Tenosynovitis of foot and ankle; Translations: [Synovitis of right foot]Onset: 304971-57-5660KnmpylykZgsza connective tissue disease (20 sources)Pain in right foot; Translations: [Pain in right foot]Onset: 468688-74-9827MxbdbwdpZrldo connective tissue disease (1 source)Pain in right foot; Translations: [Pain in right foot]Onset: 75-70-1258NsvfdojeAjpfd connective tissue disease (1 source)Pain in left foot; Translations: [Pain in left foot]Onset: 02-01-2025 EpisodicOther diseases of kidney and ureters (20 sources)Abnormal renal function; Translations: [Disorder of kidney and ureter, unspecified]Onset: 224544-96-2417QzzmzeayXlxxn diseases of veins and lymphatics (2 sources)Varicose veins of other specified sites; Translations: [Varices of other sites]Onset: 936772-19-6137CulklkfkGtudf endocrine disorders (20 sources)Hyperparathyroidism; Translations: [Hyperparathyroidism, unspecified]Onset: 06-11-2022 Resolved: 41-06-8660JirlxwvMkqrf eye disorders (20 sources)Disorder of cornea; Translations: [Unspecified disorder of cornea] Onset: 661376-53-5784KpyeyechWpors gastrointestinal disorders (1 source)Personal history of other diseases of the digestive system; Translations: [PERSONAL HX OTH DZ DIGESTIVE SYSTEM]Onset: 79-73-9900Jemxninq Other lower respiratory disease (20 sources)Dyspnea; Translations: [Shortness of breath]Onset: 08-05-2024 55-22-8604YvyzwjigVsqsj lower respiratory disease (2 sources)Shortness of breath; Translations: [Shortness of breath]Onset: 88-00-4884CutitdfhJqdba lower respiratory disease (1 source)CoughOnset: 13-43-5834FqsqfmojYlmup nutritional; endocrine; and metabolic disorders (6 sources)Body mass index 30+ - obesity; Translations: [Body mass index (BMI) 39.0-39.9, adult]Onset: 08-05-2024 Resolved: 745003-07-1415MvgsnzpVuztp screening for suspected conditions (not mental disorders or infectious disease) (1 source)Encounter for screening mammogram for malignant neoplasm of breast; Translations: [Encounter for screening mammogram for malignant neoplasm of breast]Onset: 91-48-3593JjpkdfydOiamh skin disorders (1 source)Finding of head and neck region; Translations: [Localized swelling, mass and lump, head]69-45-4439FpanxvzkEuqhi skin disorders (1 source)Localized swelling, mass and lump, head; Translations: [Localized swelling, mass and lump, head]Onset: 83-90-2997ZxhlgdxqOwuqj upper respiratory disease (20 sources)Edema of larynx; Translations: [Edema of larynx]Onset: 06-10-2017 18-54-2866MojhxouxYxxgr upper respiratory disease (20 sources)Bleeding from nose; Translations: [Epistaxis]Onset: 03-21-2024 38-51-1465ZalabbplLpnym upper respiratory disease (4 sources)Epistaxis; Translations: [Epistaxis]Onset: 95-73-3118ZvjzkmbfIjmui upper respiratory disease (1 source)Pain in throatOnset: 60-99-8580IbnpybroDsrxf upper respiratory infections (4 sources)Viral upper respiratory tract infection; Translations: [Acute upper respiratory infection, unspecified]Onset: 100349-33-2615QvmjnjryNtkjrcnst; thrombophlebitis and thromboembolism (20 sources)Acute deep venous thrombosis of upper extremity; Translations: [Acute embolism and thrombosis of deep veins of left upper extremity]Onset: 912557-03-4538VwhpqjdtDegutlmx codes; unclassified (20 sources)Edema; Translations: [Edema, unspecified]Onset: EpisodicResidual codes; unclassified (19 sources)Never smoked any substance; Translations: [Other specified health status]Onset: 095736-81-1344EhvdlzbqImuewssk codes; unclassified (2 sources)Other specified health status; Translations: [Other specified health status]Onset: 06-82-5623JyirllmoYxnjwpp and strains (3 sources)Sprain of right foot; Translations: [Unspecified sprain of right foot, initial encounter]Onset: 589515-30-4698KnrbinptLplnxyohearx (8 sources)Never smoked tobacco; Translations: [Never a smoker]Unclassified (15 sources)Onset: 09-17-2023 Resolved: 464268-33-6853Hysppmdednvt (1 source)Patient encounter yjtjte42-41-4822Lwjzmavcsjeh (2 sources)Sprain of right nbis30-91-8395Pfvsxwttiuxi (1 source)Aneurysm of the ascending aorta, without rupture; Translations: [Aneurysm of the ascending aorta, without rupture]Onset: 71-56-7612Behksatzbuhh (1 source)Thoracic aortic aneurysm, without rupture, unspecified (CMS-HCC); Translations: [Thoracic aortic aneurysm, without rupture, unspecified (CMS-HCC)] Onset: 43-99-4352Zjosetbtjhlk (1 source)Other ventricular tachycardia; Translations: [Other ventricular tachycardia]Onset: 90-46-3927Jazcf infection (20 sources)Herpes zoster; Translations: [Zoster without complications]Onset: 911224-81-6221Pdywkspb Results Test NameValueInterpretationReference RangeFacilityCBC panel Auto (Bld)on 19-74-2808Zluolubkitm distribution width (RBC) [Ratio]14.1 %Guevml96.5-15.0 [facility]ment on above:Order Comment: Specimen Type: BLOOD SPECIMENOrdering Facility: [facility] Address:[address] [place], [place] [address]Performed By: #### 20891-1 ####[facility]ITALIA [id number] [place] [address] [place] Hematocrit (Bld) [Volume fraction]46.4 %High36.0-46.0[facility] Comment on above:Order Comment: Specimen Type: BLOOD SPECIMENOrdering Facility: [facility] Address:[address] [place] [address] Performed By: #### 92870-8 ####[facility] LABIA [id number] [place] [address] [place] AMERICAHemoglobin (Bld) [Mass/Vol]15.1 g/xFPnxocn33.5-15.5CS[facility] on above: Order Comment: Specimen Type: BLOOD SPECIMENOrdering Facility: [facility] Address:[address] [place], [place] [address]Performed By: #### 66764- 2 ####[facility] LABCLIA [id number] [address] (RBC) [Entitic mass]33.1 wpClxoqy33.0-34.0 [facility] on above:Order Comment: Specimen Type: BLOOD SPECIMENOrdering Facility: [facility] Address:[address] [place], [place] [address]Performed By: #### 35924-9 ####[facility] LABIA [id number] [address] (RBC) [Mass/Vol]32.5 g/nRCvuyuj57.5-36.0[facility] HospitalComment on above:Order Comment: Specimen Type: BLOOD SPECIMENOrdering Facility: [facility] Address:[address] [place], [place] [address]Performed By: #### 73171-9 ####[facility] LABIA [id number] [address] (RBC) [Entitic vol]101.8 fL High80.0-100.0[facility] on above:Order Comment: Specimen Type: BLOOD SPECIMENOrdering Facility: [facility] Address:[address] [place], [place] [address]Performed By: #### 82109-2 ####[facility] LABIA [id number] [address] RBC (Bld) [#/Vol]10*3/uLNormal<0.01[facility] Comment on above:Order Comment: Specimen Type: BLOOD SPECIMENOrdering Facility: [facility] Address:[address] [place] [address] Performed By: #### 54716-0 ####[facility] LABCLIA [id number] [address] ST[address]ETPlatelet mean volume (Bld) [Entitic vol]11.0 fLNormal9.0-12.7CSouth[facility] on above:Order Comment: Specimen Type: BLOOD SPECIMENOrdering Facility: [facility] Address:[address] [place], [place] [address]Performed By: #### 81559-8 ####[facility] LABCLIA [id number] [place] [id number] [facility] MEDICAL CENTERPlatelets (Bld) [#/Vol]231 10*3/jGEtnpip371-870 [facility] on above:Order Comment: Specimen Type: BLOOD SPECIMENOrdering Facility: [facility] Address:[address] [place], [place] [address]Performed By: #### 77723-7 ####[facility] LABCLIA [id number] [address]ETRB (d) [#/Vol]4.56 10*6/uLNormal3.90-5.20[facility] on above: Order Comment: Specimen Type: BLOOD SPECIMENOrdering Facility: [facility] Address:[address] [place], [place] [address]Performed By: #### 39697- 2 ####[facility] LABCLIA [id number] [address]W (d) [#/Vol]5.91 10*3/uLNormal3.70-11.00 [facility] on above:Order Comment: Specimen Type: BLOOD SPECIMENOrdering Facility: [facility] Address:[address] [place], [place] [address]Performed By: #### 53056-5 ####[facility] LABCLIA [id number] [address] SerPl-cCncon 96-87-2108IT [Catalytic activity/Vol]130 U/WJraqgw43-535OvrcmyofeOhio State University [facility] on above:Order Comment: Specimen Type: BLOOD SPECIMENOrdering Facility: [facility] Address:[address] [place], [place] [address]Performed By: #### 70201-5, 2157-01 ####[facility] LABCLIA [id number] [place] [id number] [facility] Comprehensive metabolic 2000 panelon 99-81-9041Fsqwycs [Mass/Vol]4.1 g/dLNormal 3.9-4.9CS[facility] on above:Order Comment: Specimen Type: BLOOD SPECIMENOrdering Facility: [facility] Address:[address] [place], [place] [address]Performed By: #### 12703-8, 2157-01 ####[facility] LABCLIA [id number] [place] [address] [place] AMERICAALP [Catalytic activity/Vol]106 U/PGgahaa65-163RjzvvcdhmNationwide Children'S Hospital Comment on above:Order Comment: Specimen Type: BLOOD SPECIMENOrdering Facility: [facility] Address:[address] [place] [address] Performed By: #### 70028-0, 2157-01 ####[facility] LABCLIA [id number] [place] [address] [place] AMERICAALT [Catalytic activity/Vol]36 U/LNormal7-38[facility] on above:Order Comment: Specimen Type: BLOOD SPECIMENOrdering Facility: [facility] Address:[address] [place], [place] [address]Performed By: #### 38379-3, 2157-01 ####[facility] LABCLIA [id number] [place] [id number] [place] AMERICAAnion gap [Moles/Vol]11 mmol/L Normal8-15[facility] on above:Order Comment: Specimen Type: BLOOD SPECIMENOrdering Facility: [facility] Address:[address] [place], [place] [address]Performed By: #### 12545-8, 2157-01 ####[facility] LABCLIA [id number] [place] [id number] [place] AMERICAAST [Catalytic activity/Vol]31 U/VNhzkcg06-94BsrjoyytdOhio State University [facility] on above:Order Comment: Specimen Type: BLOOD SPECIMENOrdering Facility: [facility] Address:[address] [place], [place] [address]Performed By: #### 91470-5, 2157-01 ####[facility] LABCLIA [id number] [place] [address] [place] Bilirubin [Mass/Vol]0.7 mg/dLNormal0.2-1.3CSouth[facility] on above:Order Comment: Specimen Type: BLOOD SPECIMENOrdering Facility: [facility] Address:[address] [place], [place] [address]Performed By: #### 45124-6, 2157-01 ####[facility] LABCLIA [id number] [place] [address] [place] AMERICACalcium [Mass/Vol]9.4 mg/dL Normal8.5-10.2CSouth[facility] on above:Order Comment: Specimen Type: BLOOD SPECIMENOrdering Facility: [facility] Address:[address] [place], [place] [address]Performed By: #### 43650-6, 2157-01 ####[facility] LABCLIA [id number] [place] [id number] [place] AMERICAChloride [Moles/Vol]105 mmol/VDngyqb97-245AhhtxbhdjOhio [facility] on above:Order Comment: Specimen Type: BLOOD SPECIMENOrdering Facility: [facility] Address:[address] [place], [place] [address]Performed By: #### 26938-0, 2157-01 ####[facility] LABCLIA [id number] [place] [address] [place] AMERICACO2 [Moles/Vol]26 mmol/YBxlnrk21-31QtynfofdoOhio State University [facility] on above:Order Comment: Specimen Type: BLOOD SPECIMENOrdering Facility: [facility] Address:[address] [place], [place] [address]Performed By: #### 03151- 8, 2157-01 ####[facility] LABCLIA [id number] [place] [id number] [place] WHITE HOSPITALCreatinine [Mass/Vol]0.95 mg/dLNormal 0.58-0.96[facility] on above:Order Comment: Specimen Type: BLOOD SPECIMENOrdering Facility: [facility] Address:[address] [place], [place] [address]Performed By: #### 95143-3, 2157-01 ####[facility] LABCLIA [id number] [place] [address] [place] AMERICAeGFRcr SerPlBld CKD-EPI 413073 mL/min/1.73m???Normal>=60 [facility] on above:Order Comment: Specimen Type: BLOOD SPECIMENOrdering Facility: [facility] Address:[address] [place], [place] [address]Result Comment: Estimated Glomerular Filtration Rate (eGFR) is calculated using the 2020 CKD-EPI creatinine equation. This equation utilizes serum creatinine, sex, and age as parameters. The creatinine assay has traceable calibration to isotope dilution-mass spectrometry. Refer to KDIGO guidelines for clinical interpretation. In patients with unstable renal function, e.g. those with acute kidney injury, the eGFR may not accurately reflect actual GFR.Performed By: #### 95831-5, 2157-01 ####[facility] LABCLIA [id number] [place] [id number] [place] Glucose [Mass/Vol]95 mg/kEEffksm30-26MijuraitkOhio State University [facility] on above: Order Comment: Specimen Type: BLOOD SPECIMENOrdering Facility: [facility] Address:[address] [place], [place] [address]Result Comment: The [place] Diabetes Association (ADA) provides guidance for cutoff values for fast ing glucose and random glucose. The ADA defines fasting as no caloric intake for at least 8 hours. Fasting plasma glucose results between 100 to 125 mg/dL indicate increased risk for diabetes (prediabetes).Fasting plasma glucose results greater than or equal to 126 mg/dL meet the criteria for diagnosis of diabetes. In the absence of unequivocal hyperglycemia, results should be confirmed by repeattesting. In a patient with classic symptoms of hyperglycemia or hyperglycemic crisis, random plasmaglucose results greater than or equal to 200 mg/dL meet the criteria for diagnosis of diabetes.Reference: Standards of Medical Care in Diabetes 2016, [place] Diabetes [employer]. Diabetes Care. 2016.39(Suppl 1).Performed By: #### 64282-0, 2157-01 ####[facility] LABCLIA [id number] [place] [address] [place] Potassium [Moles/Vol]4.2 mmol/LNormal3.7-5.1COhioHealth Hardin Memorial Hospitalment on above:Order Comment: Specimen Type: BLOOD SPECIMENOrdering Facility: [facility] Address:[address] [place], [place] [address]Performed By: #### 67351-8, 2157-01 ####[facility] LABCLIA [id number] [place] [address] [place] AMERICAProtein [Mass/Vol]6.1 g/dLLow 6.3-8.0[facility] on above:Order Comment: Specimen Type: BLOOD SPECIMENOrdering Facility: [facility] Address:[address] [place], [place] [address]Performed By: #### 34865-0, 2157-01 ####[facility] LABIA [id number] [place] [address] [facility] OF AMERICASodium [Moles/Vol]142 mmol/YLxzsav614-073NxrhoyjarNationwide [facility]S [facility] Comment on above:Order Comment: Specimen Type: BLOOD SPECIMENOrdering Facility: [facility] Address:[address] [place] [address] Performed By: #### 56289-3, 2157-01 ####[facility] LABCLIA [id number] [place] [id number] [place] AMERICAUrea nitrogen [Mass/Vol]26 mg/dLHigh7-21[facility] on above: Order Comment: Specimen Type: BLOOD SPECIMENOrdering Facility: [facility] Address:[address] [place], [place] [address]Performed By: #### 43292- 8, 2157-6 ####[facility] LABIA [id number] [place] [address] [place] AMERICACNOVon 44-21-4542IIGHYdwsrtSybtqtbna Clinic ClevelandXR FOOT 3V AP/LAT/OBL RTon 05-48-0943GP FOOT 3V AP/LAT/OBL RT NormalNationwide Children'S HospitalCNOVon 85-85-4483TVGSYubmdxOmelcvorl Clinic ClevelandHISTORY PHYSICALon 68-88-6134WWAUMOL PHYSICALNormalCKettering Health MiamisburgCNOVon 59-10-8422IPNSGojxqtRjjjylrvh Clinic ClevelandProt/Creat Uron 77-19-8725Gscbcpr/Creatinine (U) [Mass ratio]0.16 mg/mgHigh<0.15[facility] on above:Order Comment: Specimen Type: URINE SPECIMENOrdering Facility: [facility] Address:[address] [place], [place] [address]Result Comment: Adult Proteinuria Categories:<0.15 mg/mg is considered normal to mildly increased0.15 - 0.50 mg/mg is considered moderately increased>0.50 mg/mg is considered severely increasedKDIGO. (2013). KDIGO 2012 Clinical Practice Guideline for the Evaluation and Management of Chronic Kidney Disease. Official Journal of the International Society of Nephrology, 3(1), 1-150.Performed By: #### 2890-2 ####[facility] LABCLIA [id number] [place] [id number] [place] Protein/Creatinine (U) [Mass ratio]on 39-22-7656Qffumknpvh (U) [Mass/Vol]86.5 mg/eJDyoaoq68.0-300.0[facility] on above:Order Comment: Specimen Type: URINE SPECIMENOrdering Facility: [facility] Address:[address] [place], [place] [address]Performed By: #### 2890-2 ####[facility] LABCLIA [id number] [facility]ALK [place] [address] [place] AMERICAProtein (U) [Mass/Vol]14 mg/dL Normal0-20[facility] on above:Order Comment: Specimen Type: URINE SPECIMENOrdering Facility: [facility] Address:[address] [place], [place] [address]Performed By: #### 2890-2 ####[facility] LABCLIA [id number] [address] [place] [address] [place] AMERICAUrinalysis complete panel (U)on 80-32-2602UOPDTLZF UL >9821HighNegativeOhio [facility] on above:Order Comment: Specimen Type: URINE SPECIMENOrdering Facility: [facility] Address:[address] [place], [place] [address]Performed By: #### 72180-9 ####[facility] LABCLIA [id number] [address] [place] [address] [place] AMERICABilirubin Ql (U)NegativeNormal NegativeOhio State University [facility] on above:Order Comment: Specimen Type: URINE SPECIMENOrdering Facility: [facility] Address:[address] [place], [place] [address]Performed By: #### 30677-9 ####[facility] LABCLIA [id number] [address] [place] [address] [place] AMERICAClarity (Unsp spec)ClearNormalClearOhio State University [facility] on above:Order Comment: Specimen Type: URINE SPECIMENOrdering Facility: [facility] Address:[address] [place], [place] [address]Performed By: #### 33354-7 ####[facility] LABCLIA [id number] [address] [place] [address] [place] Color (U)Dark YellowAbnormalYellowOhio State University [facility] on above: Order Comment: Specimen Type: URINE SPECIMENOrdering Facility: [facility] Address:[address] [place], [place] [address]Performed By: #### 80764- 8 ####[facility] LABCLIA [id number] [address], [place] [address] [place] AMERICAEpithelial cells LM.HPF (Urine sed) [#/Area]ModerateNormalCSouthview Medical Center on above:Order Comment: Specimen Type: URINE SPECIMENOrdering Facility: [facility] Address:[address] [place], [place] [address]Performed By: #### 94373- 8 ####[facility] LABIA [id number] [place] [id number] [place] AMERICAGlucose Test strip (U) [Mass/Vol] NegativeNormalNegativeOhio [facility] on above:Order Comment: Specimen Type: URINE SPECIMENOrdering Facility: [facility] Address:[address] [place], [place] [address]Performed By: #### 31020-8 ####[facility] LABIA [id number] [place] [address] [place] AMERICAHemoglobin Ql (U)NegativeNormal NegativeOhio State University [facility] on above:Order Comment: Specimen Type: URINE SPECIMENOrdering Facility: [facility] Address:[address] [place], [place] [address]Performed By: #### 39820-5 ####[facility] LABIA [id number] [place] [id number] [place] AMERICAHyaline casts (Urine sed) [#/Area]1-3 /LPFAbnormal0 /LPF [facility] on above:Order Comment: Specimen Type: URINE SPECIMENOrdering Facility: [facility] Address:[address] [place], [place] [address]Performed By: #### 55672-2 ####[facility] LABIA [id number] [address], [facility] [place] OF AMERICAKetones Ql (U)NegativeNormalNegativeOhio [facility] on above:Order Comment: Specimen Type: URINE SPECIMENOrdering Facility: [facility] Address:[address] [place], [place] [address]Performed By: #### 25017-0 ####[facility] LABCLIA [id number] [address], [facility] [place] [facility] MEDICAL CENTERLeukocyte esterase Test strip Ql (U)1+AbnormalNegativeNationwide Children'S HospitalComment on above: Order Comment: Specimen Type: URINE SPECIMENOrdering Facility: [facility] Address:[address] [place], [place] [address]Performed By: #### 27785- 8 ####[facility] LABIA [id number] [address], [facility] [place] AMERICANitrite Ql (U)PositiveAbnormal NegativeOhio State University [facility] on above:Order Comment: Specimen Type: URINE SPECIMENOrdering Facility: [facility] Address:[address] [place], [place] [address]Performed By: #### 93217-6 ####[facility] LABIA [id number] [address], [facility] [place] AMERICApH (U)6.0 [pH]Normal5.0-8.0[facility] Comment on above:Order Comment: Specimen Type: URINE SPECIMENOrdering Facility: [facility] Address:[address] [place] [address] Performed By: #### 84189-7 ####[facility] LABCLIA [id number] [address] [place] [address] [place] Protein (U) [Mass/Vol]NegativeNormalNegativeOhio [facility] on above:Order Comment: Specimen Type: URINE SPECIMENOrdering Facility: [facility] Address:[address] [place], [place] [address]Performed By: #### 85510-4 ####[facility] LABIA [id number] [place] [address]ETRBC LM.HPF (Urine sed) [#/Area]0-2 /HPFNormal0-2 /HPFOhio State University [facility] on above:Order Comment: Specimen Type: URINE SPECIMENOrdering Facility: [facility] Address:[address] [place], [place] [address]Performed By: #### 23365- 8 ####[facility] [id number] [address] STATES OF WHITE HOSPITALSpecific gravity (U) [Rel density]1.858Jnsqqs6.005-1.030[facility] on above:Order Comment: Specimen Type: URINE SPECIMENOrdering Facility: [facility] Address:[address] [place], [place] [address]Performed By: #### 19684- 8 ####[facility] [id number] [address]ETUrobilinogen Ql (U)0.2 EU/dL Normal0.2-1.0 EU/dLOhio State University [facility] on above:Order Comment: Specimen Type: URINE SPECIMENOrdering Facility: [facility] Address:[address] [address] [place], [place] [address]Performed By: #### 39337-8 ####[facility] [id number] [address] STATES OF WHITE HOSPITALWBC LM.HPF (Urine sed) [#/Area]6- 10 /HPFAbnormal0-5 /HPFOhio State University [facility] on above:Order Comment: Specimen Type: URINE SPECIMENOrdering Facility: [facility] Address:[address] [place], [place] [address]Performed By: #### 52729-8 ####[facility] LABIA [id number] [place] [address] [place]l-[facility]wood [facility] Hospitalon 05-24-2025 Complement C3 [Mass/Vol]185 mg/kTSdaa16-682DtvrwuskqOhio State University [facility] on above:Order Comment: Specimen Type: BLOOD SPECIMENOrdering Facility: [facility] Address:[address] [place], [place] [address]Performed By: #### 4498-2, 4485-9, 37549-3 ####[facility] LABCLIA [id number] [address] [place] [address] [place] OF AMERICAC4 SerPl-mCnc on 87-58-3061Mczzpbfopp C4 [Mass/Vol]27 mg/vQClpcai55-76EqlwsdllnOhio State University [facility] on above:Order Comment: Specimen Type: BLOOD SPECIMENOrdering Facility: [facility] Address:[address] [place], [place] [address]Performed By: #### 4498-2, 4485-9, 28726-7 ####[facility] LABCLIA [id number] [place] [id number] [place] OF WHITE HOSPITALCB W Auto Differential panel (Bld)on 35-74-1595Dygrefrda (Bld) [#/Vol]0.05 10*3/uLNormal<0.11CSouthview Medical Center on above:Order Comment: Specimen Type: BLOOD SPECIMENOrdering Facility: [facility] Address:[address] [place], [place] [address]Performed By: #### 23216- 8 ####[facility] LABCLIA [id number] [address] [address] [place] OF AMERICABasophils/100 WBC (Bld)0.7 % NormalOhio State University [facility] on above:Order Comment: Specimen Type: BLOOD SPECIMENOrdering Facility: [facility] Address:[address] [place], [place] [address]Performed By: #### 70028-8 ####[facility] LABCLIA [id number] [address] [address] [place] OF AMERICADifferential cell count method Nom (Bld)AutoNormalClevelLouis Stokes [facility] on above:Order Comment: Specimen Type: BLOOD SPECIMENOrdering Facility: [facility] Address:[address] [place], [place] [address]Performed By: #### 53108-0 ####[facility] LABCLIA [id number] [place] [address] [place] AMERICAEosinophils (Bld) [#/Vol]0.16 10*3/uLNormal<0.46[facility] on above:Order Comment: Specimen Type: BLOOD SPECIMENOrdering Facility: [facility] Address:[address] [place], [place] [address]Performed By: #### 11272-4 ####[facility] LABIA [id number] [place] [address] [place] ADOLFO Eosinophils/100 WBC (Bld)2.1 %NormalOhio State University [facility] on above: Order Comment: Specimen Type: BLOOD SPECIMENOrdering Facility: [facility] Address:[address] [place], [place] [address]Performed By: #### 78160- 8 ####[facility] LABIA [id number] [place] [address] [place] AMERICAErythrocyte distribution width (RBC) [Ratio]14.0 %Wrqtud18.5-15.0[facility] on above: Order Comment: Specimen Type: BLOOD SPECIMENOrdering Facility: [facility] Address:[address] [place], [place] [address]Performed By: #### 28634- 8 ####[facility] LABIA [id number] [place] [address] [place] OF AMERICAHematocrit (Bld) [Volume fraction]40.7 %Zkdcga48.0-46.0[facility] on above:Order Comment: Specimen Type: BLOOD SPECIMENOrdering Facility: [facility] Address:[address] [place], [place] [address]Performed By: #### 20047- 8 ####[facility] LABCLIA [id number] [place] [address] [place] AMERICAHemoglobin (Bld) [Mass/Vol]13.9 g/qXZddjss63.5-15.5CSouthview Medical Center on above:Order Comment: Specimen Type: BLOOD SPECIMENOrdering Facility: [facility] Address:[address] [place], [place] [address]Performed By: #### 55538-0 ####[facility] LABIA [id number] [place] [address] [place] AMERICAImmature granulocytes (Bld) [#/Vol]0.05 10*3/uLNormal<0.10[facility] on above:Order Comment: Specimen Type: BLOOD SPECIMENOrdering Facility: [facility] Address:[address] [place], [place] [address]Performed By: #### 44400- 8 ####[facility] LABIA [id number] [place] [address] [place] AMERICAImmature granulocytes/100 WBC (Bld)0.7 %NormalOhio State University [facility] on above:Order Comment: Specimen Type: BLOOD SPECIMENOrdering Facility: [facility] Address:[address] [place], [place] [address]Performed By: #### 96116-1 ####[facility] LABIA [id number] [place] [address] [place] AMERICALymphocytes (Bld) [#/Vol]1.04 10*3/uLNormal1.00-4.00[facility] on above:Order Comment: Specimen Type: BLOOD SPECIMENOrdering Facility: [facility] Address:[address] [place], [place] [address]Performed By: #### 86347-8 ####[facility] LABIA [id number] [place] [address] [place] AMERICALymphocytes/100 WBC (Bld)13.9 % NormalOhio State University [facility] on above:Order Comment: Specimen Type: BLOOD SPECIMENOrdering Facility: [facility] Address:[address] [place], [place] [address]Performed By: #### 14891-2 ####[facility] LABIA [id number] [place] [address] [place] AMERICAMCH (RBC) [Entitic mass]32.3 nbBpvdqm69.0-34.0[facility] on above:Order Comment: Specimen Type: BLOOD SPECIMENOrdering Facility: [facility] Address:[address] [place], [place] [address]Performed By: #### 84082-3 ####[facility] LABIA [id number] [place] [address] [place] MCHC (RBC) [Mass/Vol]34.2 g/xVNzfxlw78.5-36.0[facility] on above:Order Comment: Specimen Type: BLOOD SPECIMENOrdering Facility: [facility] Address:[address] [place] [address] Performed By: #### 61909-5 ####[facility] LABIA [id number] [place] [address] [place] MCV (RBC) [Entitic vol]94.7 uYQuamsu63.0-100.0[facility] on above:Order Comment: Specimen Type: BLOOD SPECIMENOrdering Facility: [facility] Address:[address] [place] [address] Performed By: #### 77165-6 ####[facility] LABIA [id number] [place] [address] [place] Monocytes (Bld) [#/Vol]0.97 10*3/uLHigh<0.87[facility] on above:Order Comment: Specimen Type: BLOOD SPECIMENOrdering Facility: [facility] Address:[address] [place], [place] [address]Performed By: #### 41130-9 ####[facility] LABCLIA [id number] [place] [address] [place] AMERICAMonocytes/100 WBC (Bld)13.0 %NormalOhio State University [facility] on above:Order Comment: Specimen Type: BLOOD SPECIMENOrdering Facility: [facility] Address:[address] [place], [place] [address]Performed By: #### 74515-3 ####[facility] LABCLIA [id number] [place] [address] [place] AMERICANeutrophils (Bld) [#/Vol]5.20 10*3/uLNormal1.45-7.50[facility] on above:Order Comment: Specimen Type: BLOOD SPECIMENOrdering Facility: [facility] Address:[address] [place], [place] [address]Performed By: #### 42642-0 ####[facility] LABIA [id number] [place] [address] [place] AMERICANeutrophils/100 WBC (Bld)69.6 % NormalOhio State University [facility] on above:Order Comment: Specimen Type: BLOOD SPECIMENOrdering Facility: [facility] Address:[address] [place], [place] [address]Performed By: #### 78829-5 ####[facility] LABCLIA [id number] [place] [address] [place] AMERICANucleated RBC (Bld) [#/Vol]10*3/uLNormal<0.01[facility] on above:Order Comment: Specimen Type: BLOOD SPECIMENOrdering Facility: [facility] Address:[address] [place], [place] [address]Performed By: #### 30015-2 ####[facility] LABCLIA [id number] [place] [address] [place] Nucleated RBC/100 WBC (Bld) [Ratio]0.0 /100 WBCNormalCKettering Health Miamisburg Comment on above:Order Comment: Specimen Type: BLOOD SPECIMENOrdering Facility: [facility] Address:[address] [place] [address] Performed By: #### 55557-1 ####[facility] LABIA [id number] [place] [address] [place] Platelet mean volume (Bld) [Entitic vol]10.5 fLNormal9.0-12.7CKettering Health MiamisburgComment on above:Order Comment: Specimen Type: BLOOD SPECIMENOrdering Facility: [facility] Address:[address] [place], [place] [address]Performed By: #### 77267-7 ####[facility] LABCLIA [id number] [place] [address] [place] Platelets (Bld) [#/Vol]229 10*3/xHAebmyh473-759WdjahuncfNationwide Children'S HospitalComment on above:Order Comment: Specimen Type: BLOOD SPECIMENOrdering Facility: [facility] Address:[address] [place] [address] Performed By: #### 51444-6 ####[facility] LABIA [id number] [place] [address] [place] RBC (Bld) [#/Vol]4.30 10*6/uLNormal3.90-5.20[facility] on above:Order Comment: Specimen Type: BLOOD SPECIMENOrdering Facility: [facility] Address:[address] [place], [place] [address]Performed By: #### 12209-4 ####[facility] LABCLIA [id number] [place] [address] [place] AMERICAWBC (Bld) [#/Vol]7.47 10*3/uLNormal3.70-11.00[facility] on above:Order Comment: Specimen Type: BLOOD SPECIMENOrdering Facility: [facility] Address:[address] [place], [place] [address]Performed By: #### 07505-7 ####[facility] LABCLIA [id number] [address] [address] [place] AMERICACNOVon 39-67-3384JYBBSurnmu Mercy Hospitalprehensive metabolic 2000 panelon 17-52-4121Pfinakg [Mass/Vol]4.0 g/dLNormal3.9-4.9CSouthview Medical Center on above:Order Comment: Specimen Type: BLOOD SPECIMENOrdering Facility: [facility] Address:[address] [place], [place] [address]Performed By: #### 4498- 2, 4485-9, 60573-7 ####[facility] LABCLIA [id number] [place] [id number] [place] AMERICAALP [Catalytic activity/Vol]112 U/ZWzrofa14-879MvkkmssvdOhio State University [facility] on above:Order Comment: Specimen Type: BLOOD SPECIMENOrdering Facility: [facility] Address:[address] [place], [place] [address]Performed By: #### 4498- 2, 4485-9, 05125-3 ####[facility] LABCLIA [id number] [place] [id number] [place] AMERICAALT [Catalytic activity/Vol]30 U/LNormal7-38[facility] on above:Order Comment: Specimen Type: BLOOD SPECIMENOrdering Facility: [facility] Address:[address] [place], [place] [address]Performed By: #### 4498- 2, 4485-9, 67037-1 ####[facility] LABCLIA [id number] [address] [address] [place] AMERICAAnion gap [Moles/Vol]11 mmol/LNormal8-15[facility] on above:Order Comment: Specimen Type: BLOOD SPECIMENOrdering Facility: [facility] Address:[address] [place], [place] [address]Performed By: #### 4498- 2, 4485-9, ####[facility] LABCLIA [id number] [place] [id number] [place] AMERICAAST [Catalytic activity/Vol]24 U/UQmsnql05-51BdufeqoieOhio State University [facility] on above:Order Comment: Specimen Type: BLOOD SPECIMENOrdering Facility: [facility] Address:[address] [place], [place] [address]Performed By: #### 4498- 2, 4485-9, ####[facility] LABCLIA [id number] [place] [id number] [place] AMERICABilirubin [Mass/Vol]0.6 mg/dLNormal0.2-1.3CSouthview Medical Center on above:Order Comment: Specimen Type: BLOOD SPECIMENOrdering Facility: [facility] Address:[address] [place], [place] [address]Performed By: #### 4498- 2, 4485-9, ####[facility] LABCLIA [id number] [place] [id number] [place] AMERICACalcium [Mass/Vol]9.4 mg/dLNormal8.5-10.2CSouthview Medical Center on above: Order Comment: Specimen Type: BLOOD SPECIMENOrdering Facility: [facility] Address:[address] [place], [place] [address]Performed By: #### 4498- 2, 4485-9, ####[facility] LABCLIA [id number] [address] [address] [place] AMERICAChloride [Moles/Vol]105 mmol/TAwuvwv62-834MgvntyjupOhio State University [facility] on above: Order Comment: Specimen Type: BLOOD SPECIMENOrdering Facility: [facility] Address:[address] [place], [place] [address]Performed By: #### 4498- 2, 4485-9, 52781-5 ####[facility] LABCLIA [id number] [place] [id number] [place] AMERICACO2 [Moles/Vol] 25 mmol/WUhxmeg69-49DroznilbwOhio State University [facility] on above:Order Comment: Specimen Type: BLOOD SPECIMENOrdering Facility: [facility] Address:[address] [place], [place] [address]Performed By: #### 4498-2, 4485-9, ####[facility] LABIA [id number] [place] [id number] [place] AMERICACreatinine [Mass/Vol] 1.08 mg/dLHigh0.58-0.96[facility] on above:Order Comment: Specimen Type: BLOOD SPECIMENOrdering Facility: [facility] Address:[address] [place], [place] [address]Performed By: #### 4498-2, 4485-9, ####[facility] LABIA [id number] [place] [id number] [place] OF AMERICAeGFRcr SerPlBld CKD- EPI 712272 mL/min/1.73m???Low>=60[facility] on above: Order Comment: Specimen Type: BLOOD SPECIMENOrdering Facility: [facility] Address:[address] [place], [place] [address]Result Comment: Estimated Glomerular Filtration Rate (eGFR) is calculated using the 2020 CKD-EPI cre atinine equation. This equation utilizes serum creatinine, sex, and age as parameters. The creatinine assay has traceable calibration to isotope dilution- mass spectrometry. Refer to KDIGO guidelines for clinical interpretation. In patients with unstable renal function, e.g. those with acute kidney injury, the eGFR may not accurately reflect actual GFR.Performed By: #### 4498-2, 4485-9, 84769-6 ####[facility] LABIA [id number] [address] [address] [place] AMERICAGlucose [Mass/Vol]92 mg/dEQebwyi11-64TrohiooggNationwide Children'S HospitalComment on above:Order Comment: Specimen Type: BLOOD SPECIMENOrdering Facility: [facility] Address:[address] [place], [place] [address]Result Comment: The [place] Diabetes Association (ADA) provides guidance for cutoff values for fasting glucose and random glucose. The ADA defines fasting as no caloric intake for at least 8 hours. Fasting plasma glucose results between 100 to 125 mg/dL indicate increased risk for diabetes (prediabetes).Fasting plasma glucose results greater than or equal to 126 mg/dL meet the criteria for diagnosis of diabetes. In the absence of unequivocal hyperglycemia, results should be confirmed by repeat testing. In a patient with classic symptoms of hyperglycemia or hyperglycemic crisis, random plasmaglucose results greater than or equal to 200 mg/dL meet the criteria for diagnosis of diabetes.Reference: Standards of Medical Care in Diabetes 2016, [place] Diabetes Association. Diabetes Care. 2016.39(Suppl 1). Performed By: #### 4498-2, 4485-9, 77029-7 ####[facility] LABIA [id number] [address] [address] [place] AMERICAPotassium [Moles/Vol]4.5 mmol/LNormal3.7-5.1CKettering Health Miamisburg Comment on above:Order Comment: Specimen Type: BLOOD SPECIMENOrdering Facility: [facility] Address:[address] [place] [address] Performed By: #### 4498-2, 4485-9, 56989-5 ####[facility] [id number] [address] [address] [place] AMERICAProtein [Mass/Vol]6.3 g/dLNormal6.3-8.0Nationwide Children'S HospitalCommymichigan medical center gladwin on above:Order Comment: Specimen Type: BLOOD SPECIMENOrdering Facility: [facility] Address:[address] [place] [address] Performed By: #### 4498-2, 4485-9, 91001-3 ####[facility] LABCLIA [id number] [place] [id number] [place] WHITE HOSPITALSodium [Moles/Vol]141 mmol/BZhuwvg545-919OkwljloomNationwide Children'S Hospital Comment on above:Order Comment: Specimen Type: BLOOD SPECIMENOrdering Facility: [facility] Address:[address] [place] [address] Performed By: #### 4498-2, 4485-9, 90054-5 ####[facility] LABCLIA [id number] [place] [address] [place] AMERICAUrea nitrogen [Mass/Vol]29 mg/dLHigh7-21[facility] Comment on above:Order Comment: Specimen Type: BLOOD SPECIMENOrdering Facility: [facility] Address:[address] [place] [address] Performed By: #### 4498-2, 4485-9, ####[facility] LABCLIA [id number] [place] [id number] [place] OF AMERICADNA ANTIBODY DS BLDon 05-58-1678LSA ANTIBODY7 IU/mLNormal<=200Nationwide Children'S HospitalComment on above:Order Comment: Specimen Type: BLOOD SPECIMENOrdering Facility: [facility] Address:[address] [place], [place] [address]Result Comment: Negative: <200 IU/mLEquivocal: 201-300 IU/mLModerate Positive: 301-800 IU/mLStrong Positive: >801 IU/mLPerformed By: #### DNAAB ####[facility] LABCLIA [id number] [place] [address] [place] AMERICADNA ANTIBODY QUALITATIVE INTERPRETATIONNegativeNormalNegativeNationwide Children'S Hospital Comment on above:Order Comment: Specimen Type: BLOOD SPECIMENOrdering Facility: [facility] Address:[address] [place] [address] Performed By: #### DNAAB ####[facility] LABCLIA [id number] [place] [address] [place] AMERICACNOVon 30-69-0507OXARHfmaokUhyejprlqAshtabula County Medical CenterXR FOOT 3V AP/LAT/OBL RTon 50-17-7479NC FOOT 3V AP/LAT/OBL RTNormalCKettering Health MiamisburgCNOVon 79-42-2941PSWQDvdwxrNuyftxuju Clinic ClevelandCNPNon 33-47-4361PIRMFogkoj Nationwide Children'S HospitalCNOVon 19-78-8218XICLRpsavv Visit (ORFWHP) JESUS WOLF ([id number]) 1955 F Date Time Provider Department 04/18/25 1:00 PM CAST TECH FAIRIVEW ORFWHP During your visit today, we recorded the [...] reports 300 mg by mouth daily - jagaait-blozgnbuj-cstiryi D3 500 mg-5 mcg (200 unit) per tablet Take 1 tablet by mouth three times daily. - MV with Tln-Tsaafdyx-Xmatmh (CENTRUM SILVER) 0.4 mg-300 mcg- 250 mcg [...] right foot [M65.971] 02/03/2017 (more content not included)...[facility]OV[facility] ([facility]) JESUS WOLF ([id number]) 1955 F Date Time Provider Department 04/18/25 [...] [M14.60] Order(s):XR FOOT GENERAL 3V AP/LAT/OBL RIGHT [[id number]] Order #: [id number] FUTURE CONSULT TO PHYSICAL THERAPY [9032] Order #: [id number]: 1 FUTURE Prescriptions as of 04/18/2025 - [...] reports 300 mg by mouth daily - cdcuyez-aupfazyit-oouynxa D3 500 mg-5 mcg (200 unit) per tablet Take 1 tablet by mouth three times daily. 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)...NormalFairview HospitalCNPNon 10-54-9236RWBMFjbdcjUfuabnnivC[facility] metabolic 2000 panelon 18-13-4597Ovche gap [Moles/Vol]9 mmol/LNormal8-15Lutheran HospitalComment on above:Order Comment: Specimen Type: BLOOD SPECIMEN [facility] Address: [address] [place], [place] [address]Performed By: #### 94877-1 #### [facility] CLIA [id number] [address] [place], [place] [address] [place] AMERICACalcium [Mass/Vol]8.9 mg/dLNormal 8.5-10.2Lutheran HospitalComment on above:Order Comment: Specimen Type: BLOOD SPECIMEN [facility] Address: [address] [place], [place] [address]Performed By: #### 28141-6 #### [facility] CLIA [id number] [address] [place] [address] [place] AMERICAChloride [Moles/Vol]107 mmol/LNormal 98-107Lutheran HospitalComment on above:Order Comment: Specimen Type: BLOOD SPECIMEN [facility] Address: [address] [place], [place] [address]Performed By: #### 45440-9 #### [facility] CLIA [id number] [address] [place] [address] [place] AMERICACO2 [Moles/Vol]25 mmol/UKiehdq68-00 Jain HospitalComment on above:Order Comment: Specimen Type: BLOOD SPECIMEN [facility] Address: [address] [place], [place] [address]Performed By: #### 61073-6 #### [facility] CLIA [id number] [address] [place], [place] [address] [place] AMERICACreatinine [Mass/Vol]0.95 mg/dL Normal0.58-0.96Lutheran HospitalComment on above:Order Comment: Specimen Type: BLOOD SPECIMEN [facility] Address: [address] [place], [place] [address]Performed By: #### 44295-7 #### [facility] CLIA [id number] [address] [place], [place] [address] [place] AMERICAeGFRcr SerPlBld CKD-EPI 695946 mL/min/1.73m???Normal>=60Lutheran HospitalComment on above:Order Comment: Specimen Type: BLOOD SPECIMEN Order[facility] Address: [address] [place], [place] [address]Result Comment: Estimated Glomerular Filtration Rate (eGFR) is calculated using the 2020 CKD-EPI cre atinine equation. This equation utilizes serum creatinine, sex, and age as parameters. The creatinine assay has traceable calibration to isotope dilution- mass spectrometry. Refer to KDIGO guidelines for clinical interpretation. In patients with unstable renal function, e.g. those with acute kidney injury, the eGFR may not accurately reflect actual GFR.Performed By: #### 35955-6 #### [facility] CLIA [id number] [address] [place], [place] [address] [place] AMERICAGlucose [Mass/Vol]125 mg/pVOvxq92-76 [facility] HospitalComment on above:Order Comment: Specimen Type: BLOOD SPECIMEN [facility] Address: [address] [place], [place] [address]Result Comment: The [place] Diabetes Association (ADA) provides guidance for cutoff [...] Standards of Medical Care in Diabetes 2016, [place] [employer]. Diabetes Care. 2016.39(Suppl 1).Performed By: #### 40536-9 #### [facility] [place] [id number] [address] [place], [place] [address] [place] AMERICAPotassium [Moles/Vol]5.1 mmol/L Normal3.7-5.1LThe University of Toledo Medical CenterCommymichigan medical center gladwin on above:Order Comment: Specimen Type: BLOOD SPECIMEN [facility] [facility] Address: [address] [id number] By: #### 24596-8 #### [facility] CLIA [id number] [address] [place] [address] [place] OF AMERICASodium [Moles/Vol]141 mmol/LNormal 136-144[facility] HospitalComment on above:Order Comment: Specimen Type: BLOOD SPECIMEN Ordering Facility: [facility] Address: [address] [place], [place] [address]Performed By: #### 15879-9 #### [facility] CLIA [id number] [address] [place], [place] [address] [place] OF AMERICAUrea nitrogen [Mass/Vol]21 mg/dL Normal7-21[facility] HospitalComment on above:Order Comment: Specimen Type: BLOOD SPECIMEN Ordering Facility: [facility] Address: [address] [place], [place] [address]Performed By: #### 62119-3 #### [facility] [place] [id number] [address] [place] [address] [place] OF AMERICACBC panel Auto (Bld)on 04-04-2025 Erythrocyte distribution width (RBC) [Ratio]13.4 %Ercscr15.5-15.0[facility] HospitalComment on above:Order Comment: Specimen Type: BLOOD SPECIMEN Ordering Facility: [facility] Address: [address] [place], [place] [address]Performed By: #### 56574-8 #### [facility] IA [id number] [address] [place] [address] [place] OF AMERICAHematocrit (Bld) [Volume fraction] 37.8 %Iqpfdc95.0-46.0[facility] HospitalComment on above:Order Comment: Specimen Type: BLOOD SPECIMEN Ordering Facility: [facility] Address: [address] [place], [place] [address]Performed By: #### 15875-3 #### [facility] IA [id number] [address] [place] [address] [place] AMERICAHemoglobin (Bld) [Mass/Vol]12.5 g/dL Mlhwhe83.5-15.5[facility] HospitalComment on above:Order Comment: Specimen Type: BLOOD SPECIMEN Ordering Facility: [facility] Address: [address] [place], [place] [address]Performed By: #### 58638-0 #### [facility] CLIA [id number] [address] [place] [address] (RBC) [Entitic mass]33.0 pg Zrmhvu39.0-34.0Lutheran HospitalComment on above:Order Comment: Specimen Type: BLOOD SPECIMEN Ordering Facility: [facility] Address: [address] [place], [place] [address]Performed By: #### 00333-8 #### [facility] IA [id number] [address] [place] [address] (RBC) [Mass/Vol]33.1 g/dLNormal 30.5-36.0Lutheran HospitalComment on above:Order Comment: Specimen Type: BLOOD SPECIMEN Ordering Facility: [facility] Address: [address] [place], [place] [address]Performed By: #### 72199-5 #### [facility] IA [id number] [address] [place] [address] (RBC) [Entitic vol]99.7 fLNormal 80.0-100.0Lutheran HospitalComment on above:Order Comment: Specimen Type: BLOOD SPECIMEN Ordering Facility: [facility] Address: [address] [place], [place] [address]Performed By: #### 55125-2 #### [facility] IA [id number] [address] [place] [address] RBC (Bld) [#/Vol]0.02 10*3/uLHigh<0.01Lutheran HospitalComment on above:Order Comment: Specimen Type: BLOOD SPECIMEN Ordering Facility: [facility] Address: [address] [place], [place] [address]Performed By: #### 00310-3 #### [facility] IA [id number] [address] [place], [place] [address]Platelet mean volume (Bld) [Entitic vol]10.4 fLNormal9.0-12.7Lutb[facility] centeran HospitalComment on above:Order Comment: Specimen Type: BLOOD SPECIMEN Ordering Facility: [facility] Address: [address] [place], [place] [address]Performed By: #### 07271-8 #### [facility] CLIA [id number] [address] [place] [address] AMERICAPlatelets (Bld) [#/Vol]167 10*3/uL Xzjhbn300-211Tzsilcfl HospitalComment on above:Order Comment: Specimen Type: BLOOD SPECIMEN Ordering Facility: [facility] Address: [address] [place], [place] [address]Performed By: #### 31371-4 #### [facility] CLIA [id number] [address] [place], [place] [address]RBC (Bld) [#/Vol]3.79 10*6/uLLow 3.90-5.20[facility] HospitalComment on above:Order Comment: Specimen Type: BLOOD SPECIMEN Order[facility] Facility: [facility] Address: [address] [place], [place] [address]Performed By: #### 15508-6 #### [facility] CLIA [id number] [address] [place], [place] [address]WBC (Bld) [#/Vol]14.25 10*3/uLHigh 3.70-11.00[facility] HospitalComment on above:Order Comment: Specimen Type: BLOOD SPECIMEN Ordering Facility: [facility] Address: [address] [place], [place] [address]Performed By: #### 32717-0 #### [facility] CLIA [id number] [address] [place] [address] [facility] AMERICATHERAPY NTon 59-86-8918NGMXQRE NTHNO ID: [id number] Author: SRAVANI VARGAS, PT, DPT Service: Physical Therapy Author Type: Physical Therapist Type: Therapy (PT/OT/Speech/Resp) Filed: 04/04/2025 13:24 Note Text: Physical Therapy Evaluation Summary SERVICE DATE: 04/04/2025 SERVICE TIME: 1220 to 1239 ROOM: [address] [address] PT 6 Clicks Score: 18 Total Joint Replacement Discharge Readiness: Not Applicable DISCHARGE RECOMMENDATIONS Home Recommended Discharge Disposition Comments: 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 Pt and family feel comfortable returning home. Declined need for mobility assessment. States that she has been transferring to/from [facility] with walker while inhouse. Plans on transferring [...] Wheeled, Commode- 3 in 1, Wheelchair- Manual, Patient Services Technician PRIOR FUNCTIONAL LEVEL Within Functional Limits Per pt, she was independent with ADLs. Shares IADLs. Has been utilizing W/C for mobility SUBJECTIVE Pt motivated for D/C home today. and daughter bedside. THERAPY DIAGNOSIS Reduced mobility-other, Difficulty walking-musculoskeletal, Unsteadiness on feet TREATMENT INTERVENTIONS Evaluation Skilled Treatment Time (minutes): 19 TRAINING AND EDUCATION PROVIDED Advanced Balance Activities, Anatomy and Impact on Deficits, Home Safety, Falls Prevention, Equipment, Energy Conservation, Discharge Planning, Car Transfers, Precautions/Restrictions, Positioning, Modalities, Transfers THERAPEUTIC SKILLS USED Teach-Back [...] Wolf DATE: April 04, 2025 TIME: 1:23 [facility] HospitalTHERAPY NTHNO ID: [id number] Author: CHAPINCITO LEON OTR/Vinicio Service: Occupational Therapy Author Type: Occupational Therapist Type: Therapy (PT/OT/Speech/Resp) Filed: 04/04/2025 13:10 Note Text: OCCUPATIONAL THERAPY MISSED VISIT SERVICE DATE: 04/04/2025 SERVICE TIME: 1308 ROOM: [address] [place] [address] Patient not seen due to Clinical Appropriateness. Per PT, pt declined OT d/t know needs and has all necessary equipment for home. D/C OT services. SIGNATURE: JODY Arcos/Vinicio PATIENT NAME: Jesus Wolf DATE: April 04, 2025 TIME: 1:09 [facility] HospitalANES POSTPROC EVALon 60-56-5124UPGX POSTPROC EVALHNO ID: [id number] Author: SURENDRA MONTEMAYOR MD Service: Anesthesiology Author Type: Anesthesiologist Type: Anesthesia Postprocedure Evaluation Filed: 04/03/2025 13:27 Note Text: POST ANESTHESIA EVALUATION NOTE : 1955 Procedure Summary Date: 04/03/25 Room / Location: [address] [address] / OR Anesthesia Start: 916 Anesthesia Stop: 130 Procedures: ARTHRODESIS MIDTARSAL MULTIPLE/TRANSVERSE (Right: Foot) ARTHRODESIS [...] April 03, 2025 TIME: 1:27 PM CSN: [id number] PRE-OPon 90-28-8430CNVR PRE-OPHNO ID: [id number] Author: SURENDRA MONTEMAYOR MD Service: Anesthesiology Author [...] QUAL PROF TIME,SEPARATE PROCEDURE (Right: Foot) Location: [address] [place] [address] / OR Surgeons: Aiden Hall MD Estimated [...] adequate. Short neck: yes. Thick neck: yes Microretrognathia/Micronagthia/Recessed Chin: No DENTAL Dental findings: teeth intact. [...] 4 hours as needed for pain. - vvtnitn-rrkanvzio-axegtef D3 500 mg-5 mcg (200 unit) per tablet Take 1 tablet by mouth three times daily. - MV with Vvl-Xwqdydvb-Gzpnhh (CENTRUM SILVER) 0.4 mg-300 mcg- 250 mcg tab Take 1 tablet by mouth once daily. - atorvastatin (LIPITOR) 40 mg tablet Take 1 tablet by mouth once daily. - Bifidobacterium infantis (ALIGN ORAL) Take by mouth once daily. - belimumab (BENLYSTA INTRAVENOUS) Inject intravenously. Patient reports she receives infusion every 3 months (more content not included)...[facility] 01-11-6573TIFZVGDVUG ID: [id number] Author: ESPINOZA ROME MD Service: General Internal [...] TUNNEL RIGHT WRIST surgical correction COLONOSCOPY 05/10/2019 [facility] COLONOSCOPY GEN ANES 07/23/2020 Dr. Frances/Diverticulosis/Hemorrhoids/ Ulcerative Colitis/Rpt in 2 yrs. COLONOSCOPY SCREENING 03/2023 EGD EUS 01/11/2020 [facility] LASIK Right prior to [...] reviewed for today's visit: No new labs Impression/Recommendations Principal Problem: Patient is a 70-year-old female. Status post right foot surgery. She is medically stable this time. Medical conditions include: Hypertension. BP remains stable. Will continue to monitor. Hyperlipidemia. Resume medications upon discharge. Paroxysmal atrial fibrillation. Plan to continue Eliquis. Will follow. Thanks. Medication and Non-Pharmacologic VTE Prophylaxis/Anticoagulants Anticoagulant AND [...] 0859 04/03/25 1530 vte current anticoag therapy (ny,oh) 04/03/25 1530 pneumatic compression sleeve(s) (ny,sd) 04/03/25 1530 activity - mobilize patient ([place]) VTE Prophylaxis: VTE prophylaxis appropriate SIGNATURE: Espinoza Rome MD PATIENT NAME: Jesus Wolf DATE: (more content not included)...[facility] HospitalOPERATIVE NOon 71-42-0823ZNSVLNREZ NOHNO ID: [id number] Author: AIDEN HALL MD Service: Orthopaedic Surgery [...] diagnosis PROCEDURES: Right subtalar joint fusion - 03586 Right talonavicular joint fusion - 19866 Multiple midfoot fusion (first and second tarsometatarsal joints, medial naviculocuneiform joint) - 69921 Intra-operative use of fluoroscopy - 33748 SURGEONS: Aiden Hall MD DATAPOWER DEVELOPER: Sravani Callejas MD (PGY-1) STAFF: Crystallography Teacher: Nga Jiménez RN Physician Aluminum Polisher: Shoaib Coyle PA-C; Percy Dent PA-C Scrub Person: Jose Mcrae ST ANESTHESIA: General See anesthesia report for details. ESTIMATED BLOOD LOSS: 50cc DRAINS: None TOTAL IV FLUIDS: See anesthesia report for details SPECIMENS: * No order type specified * IMPLANTS: Implant Name Type Inv. Item Serial No. Associate Software Development Engineer Lot No. LRB No. Used Action GRAFT BN AUGMENT INJ 3.0CC - [id number] Graft GRAFT BN AUGMENT INJ 3.0CC [place] [id number] Right 1 Implanted [employer] 5[employer] - [id number] Bone [employer] 5[employer] [id number] Right 1 Implanted EASYFUSE STAPLE 25X20 NITINOL 2-LEG Staple [employer] [id number] Right 1 Implanted PIN ORTHOLOC 1.4MM LARGE FIXATION TEMPORARY DISPOSABLE - [id number] Pin PIN ORTHOLOC 1.4MM LARGE FIXATION TEMPORARY DISPOSABLE [facility] Right 1 Non-Implant TACK CLAW II ORTHOLOC 3DI ORTHOPEDIC PLATE FOOT ANKLE DISPOSABLE - [id number] Pin TACK CLAW II ORTHOLOC 3DI ORTHOPEDIC PLATE FOOT ANKLE DISPOSABLE [facility] Right 2 Non-Implant PIN ORTHOLOC 3DI 1.4MM SMALL FIXATION TEMPORARY DISPOSABLE - [id number] Pin PIN ORTHOLOC 3DI 1.4MM SMALL FIXATION TEMPORARY DISPOSABLE [facility] Right 1 Non-Implant SCREW ORTHOLOC 3.5MM FULL THREAD PURPLE 16MM BONE 3DI TECHNOLOGY SELF - [id number] Screw SCREW ORTHOLOC 3.5MM FULL THREAD PURPLE 16MM BONE 3DI TECHNOLOGY SELF [facility] Right 1 Implanted SCREW ORTHOLOC 3DI 3.5MM FULL THREAD LOW PROFILE PURPLE 18MM BONE LOCK OVER - [id number] Screw SCREW ORTHOLOC 3DI 3.5MM FULL THREAD LOW PROFILE PURPLE 18MM BONE LOCK OVER [facility] Right 1 Implanted SCREW ORTHOLOC 3.5MM FULL THREAD PURPLE 20MM BONE 3DI TECHNOLOGY LOCK - [id number] Screw SCREW ORTHOLOC 3.5MM FULL THREAD PURPLE 20MM BONE 3DI TECHNOLOGY LOCK [facility] Right 1 Implanted SCREW ORTHOLOC 3.5MM FULL THREAD PURPLE 22MM BONE 3DI TECHNOLOGY POLYAXIAL - [id number] Screw SCREW ORTHOLOC 3.5MM FULL THREAD PURPLE 22MM BONE 3DI TECHNOLOGY POLYAXIAL [facility] Right 1 Implanted MEDIAL COLUMN FUSION PLATE LG ORTHOLOC 3DI PLATING - [id number] Plate MEDIAL COLUMN FUSION PLATE LG ORTHOLOC 3DI PLATING [facility] Right 1 Implanted SCREW ORTHOLOC 3.5MM FULL THREAD PURPLE 24MM BONE 3DI TECHNOLOGY SELF - [id number] Screw SCREW ORTHOLOC 3.5MM FULL THREAD PURPLE 24MM BONE 3DI TECHNOLOGY SELF [facility] Right 1 Implanted SCREW BONE 8MM 85MM ASNIS III TITANIUM FULLY THREADED CANNULATED SELF - [id number] Screw SCREW BONE 8MM 85MM ASNIS III TITANIUM FULLY THREADED CANNULATED SELF YAJAIRA Right 1 Implanted ORTHOLOC 3DI SCREW ABDULKADIR 3.5X26MM Screw [facility] Right 1 Implanted SCREW ANS3 25 THRD TI 8.0X 80 Screw YAJAIRA Right 1 Implanted 8.0 X 75MM TI CANNULATED SCREW - [id number] Screw 8.0 X 75MM TI CANNULATED SCREW YAJAIRA 1 Wasted BIT 2.5MM DRILL - [id number] Bit BIT 2.5MM DRILL [facility] 1 BIT ORTHOLOC 2.8MM 60MM DRILL 3DI TECHNOLOGY - [id number] Bit BIT ORTHOLOC 2.8MM 60MM DRILL 3DI TECHNOLOGY [facility] 1 SCREW ORTHOLOC 3DI 3.5MM BRONZE 38MM BONE LOW PROFILE SELF TAPPING THREADED - [id number] Screw SCREW ORTHOLOC 3DI 3.5MM BRONZE 38MM BONE LOW PROFILE SELF TAPPING THREADED [employer] Right 1 Implanted SCREW ORTHOLOC 3.5MM FULL THREAD LOW PROFILE BRONZE 40MM BONE 3DI - [id number] Screw SCREW ORTHOLOC 3.5MM FULL THREAD LOW PROFILE BRONZE 40MM BONE 3DI [facility] Right 1 Implanted COMPLICATIONS: None DISPOSITION: Stable [...] and even . OPERA (more content not included)...[facility] HospitalXR FOOT 2V AP/LAT RT on 62-80-9405EC FOOT 2V AP/LAT RT* * *Final Report* * * DATE OF [...] Intraoperative examination for surgical planning and documentation. Implant Polisher: MILLER Transcribe Date/Time: Apr 04 2025 8:35A Dictated by : SOPHIE WILSON DO This examination was interpreted and the report reviewed and electronically signed by: SOPHIE WILSON DO on Apr 04 2025 8:40AM EST [id number] Clinic Children's [facility] for [facility] 65-59-7750SQMVVhiihn [facility] Children'S HospitalHISTORY PHYSICALon 16-73-2006FCDUNPI PHYSICALNormal [facility]S HospitalCNOVon 44-12-5245GRHJUxnzbeNsfcnmxzz [facility] [place] Large Joint Arthro/Inj: L knee jointon 43-65-9930YkviaMary Childress MD 03/10/2025 9:49 AM Large Joint Arthro/Inj: [...] these instructions. Informed Consent Consent Obtained: Written [place] Protocol A moment to CARE was completed. [...] the bedside nurse for hospitalized patients) applicable. [facility] Hospitalon 33-53-1666WPPUWclgufLbvczfpcv Clinic Dzwyubiyg94([place])D3 [facility] Hospitalon 602142-zqneielhbyicbl D3 [Mass/Vol]50.7 ng/dHLbssay44.0-80.0N[facility]wide Children'S HospitalComment on above:Order Comment: Specimen Type: BLOOD SPECIMENOrdering Facility: [facility] Address:[address] [place], [place] [address]Result Comment: Classification of 25 [place] Vitamin D status:Deficiency/Insufficiency: < or = 30 ng/m l.Sufficiency/Optimal Levels: 31-80 ng/mLToxicity: > 100 ng/mL.Test performed by chemiluminescent immunoassay.Performed By: #### 1989-3 ####[facility] LABCLIA [id number] [address] STATES [facility] MEDICAL CENTERCNPNon 72-30-2331JKVQMyybqfXcogffgfi [facility] [place] 4331901999vh 38-51-29367602224323ClcybkRghjizrok Clinic ClevelandCNOVon 77-78-6435ZZPSGpamznSsdztaksn Clinic ClevelandCNTHERAPYon 11-50-3189PGCPQZXLS NormalNationwide Children'S HospitalCT FOOT WO IVCON RTon 26-18-7405MM FOOT WO IVCON RT* * *Final Report* * * DATE OF EXAM: Feb 01 2025 7:36AM [facility] 0074 - CT FOOT WO IVCON [...] AND POSTOPERATIVE CHANGES. ANKLE SOFT TISSUE EDEMA. 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 DEGENERATIVE AND POSTOPERATIVE CHANGES. ANKLE SOFT TISSUE EDEMA. Implant Polisher: [facility] Transcribe Date/Time: Feb 01 2025 9:38A Dictated by : JAY OCAMPO MD This examination was interpreted and the report reviewed and electronically signed by: JAY OCAMPO MD on Feb 01 2025 1:44PM EST [facility]* * *Final Report* * * DATE OF EXAM: Feb 01 2025 7:36AM [facility] 0074 - CT FOOT WO IVCON [...] edema. LOCALIZER IMAGES: No significant additional findings. [facility] RADIOLOGYProvider, [facility] [place] - 02/01/2025 * * *Final Report* * * DATE OF EXAM: Feb 01 2025 7:36AM [facility] 0074 - CT FOOT WO IVCON [...] AND POSTOPERATIVE CHANGES. ANKLE SOFT TISSUE EDEMA. Implant Polisher: PSC[employer] Transcribe Date/Time: Feb 01 2025 9:38A Dictated by : JAY OCAMPO MD This examination was interpreted and the report reviewed and electronically signed by: JAY OCAMPO MD on Feb 01 2025 1:44PM EST [facility] HospitalRadiology Study observation (narrative)[facility] HospitalCT Foot - right WO contrastOrdered By: Ccf Provider on 71-97-8852Rgkanalyx ClinicCNPNon 35-24-8908VDMXUiohqcQcnyjbwgj Clinic ClevelandCNOVon 29-38-7933JQMUTamkvf [facility]'S HospitalCNOVon 43-99-3935QRYRBgsdcfRxneqnolo [facility] CNOVon 35-49-2421ZFFTKhnbeyTpfslrtdw Clinic ClevelandXR FOOT 3V AP/LAT/OBL RTon 38-48-9417IW FOOT 3V AP/LAT/OBL RTNormalCKettering Health MiamisburgXR Foot - right AP and Lateral and obliqueon 01-19-2025* * *Final Report* * * DATE OF [...] planus with calcaneal spurs unchanged. DIVISION OF RADIOLOGYProvider, [facility] [place] - 01/19/2025 * * *Final Report* * [...] WITH PROGRESSIVE FINDINGS SUGGESTIVE OF CHARCOT ARTHROPATHY. Implant Polisher: MILLER Transcribe Date/Time: Jan 19 2025 4:42P Dictated by : MIRTHA KENDRICK MD This examination was interpreted and the report reviewed and electronically signed by: MIRTHA KENDRICK MD on Jan 19 2025 4:45PM EST [facility] HospitalRadiology Study observation (narrative)[facility] Foot - right AP and Lateral and obliqueOrdered By: Ccf Provider on 86-47-1729Ihxrdeclt ClinicCNOV 61-31-3932WLAZSrhwbrWmuzatcmoMercy Health [facility] 12-22-2024 CNOVNoThe [facility] 84-43-1184PJJMKxsktjNvylceuwoOhioHealth Van Wert HospitalXR FOOT 3V AP/LAT/OBL RTon 77-47-6376HI FOOT 3V AP/LAT/OBL RTNormal [facility]S HospitalXR Foot - right AP and Lateral and obliqueon 38-90-9956GMIUTCAGCD: Navicular fracture. Soft tissue swelling. Postoperative and degenerative changes. Implant Polisher: MILLER Transcribe Date/Time: Dec 21 2024 1:49P Dictated by : JAY OCAMPO MD This examination was interpreted and the report reviewed and electronically signed by: JAY OCAMPO MD on Dec 21 2024 4:03PM EST DIVISION OF RADIOLOGY* * *Final Report* * * DATE OF [...] moderate pes planus. No other significant abnormality. DIVISION OF RADIOLOGYProvider, [facility] [place] - 12/21/2024 * * *Final Report* * [...] moderate pes planus. No other significant abnormality. IMPRESSION IMPRESSION: Navicular fracture. Soft tissue swelling. Postoperative and degenerative changes. Implant Polisher: MILLER Transcribe Date/Time: Dec 21 2024 1:49P Dictated by : JAY OCAMPO MD This examination was interpreted and the report reviewed and electronically signed by: JAY OCAMPO MD on Dec 21 2024 4:03PM EST [facility] HospitalRadiology Study observation (narrative)[facility]XR Foot - right AP and Lateral and obliqueOrdered By: Ccf Provider on 75-87-6609Gqpwktdee ClinicCNPNon 86-40-5258VIJWSdfhzsYnypmnztaOhioHealth Dublin Methodist HospitalCNPNon 12-19-2024 CNPNNOhioHealth Dublin Methodist HospitalXR Ankle - right 3 Viewson 12-19-2024 [facility] HospitalRadiology Study observation (narrative)[facility] County HospitalTweetPhoto SystemECG 12 Leadon 72-15-4380WEG revealed normal sinus rhythm, normal ECG.[facility] Work Phone: $ Arthrocentesison 62-37-6941GnuxwyWojciech Treviño DO 11/28/2024 3:29 PM $ Arthrocentesis [...] to age) post-procedure vital signs reviewed and stableMANUALLY TRANSCRIBED RESULTS ProMedicHighland District HospitalCNPNon 39-08-5604KXJCQojtuiQhtbxuwoa Clinic ClevelandC3 COMPLEMENTon 94-14-3142Mexkpvdfdz C3 [Mass/Vol]165 mg/dL86 - 166 mg/dLJesse Ville [address] SerPl-mCncon 56-58-8066Dffxzbqmii C3 [Mass/Vol]165 mg/sEQogybm57-631 [facility] on above:Order Comment: Specimen Type: BLOOD SPECIMENOrdering Facility: [facility] Address:[address] [place], [place] [address]Performed By: #### 4485-9, 91221-4, 4498-2 ####[facility] LABCLIA [id number] [place] [address] [place] OF AMERICAC4 COMPLEMENTon 56-68-2738Flypomjokn C4 [Mass/Vol] 31 mg/dL13 - 46 mg/dLFrederick Ville [address] SerPl-mCncon 10-67-4117Ilzefiznbi C4 [Mass/Vol]31 mg/tZYvwdvp07-12IvguithauOhio State University Wexner Medical Center on above:Order Comment: Specimen Type: BLOOD SPECIMENOrdering Facility: [facility] Address:[address] [place], [place] [address]Performed By: #### 4485- 9, 87220-4, 4498-2 ####[facility] LABCLIA [id number] [place] [address] [place] OF AMERICACB W Auto Differential panel (Bld)on 25-65-4452Pqnbjxegq (Bld) [#/Vol]0.05 10*3/uLNormal <0.11CSouthview Medical Center on above:Order Comment: Specimen Type: BLOOD SPECIMENOrdering Facility: [facility] Address:[address] [place], [place] [address]Performed By: #### 49299-9 ####[facility] LABCLIA [id number] [place] [address] [place] OF AMERICABasophils/100 WBC (Bld)0.7 %NormalNationwide Children'S Hospital Comment on above:Order Comment: Specimen Type: BLOOD SPECIMENOrdering Facility: [facility] Address:[address] [place] [address] Performed By: #### 40691-3 ####[facility] LABCLIA [id number] [place] [address] [place]OLFO Differential cell count method Nom (Bld)AutoNormalClevelMission Hospital McDowell Comment on above:Order Comment: Specimen Type: BLOOD SPECIMENOrdering Facility: [facility] Address:[address] [place] [address] Performed By: #### 80270-5 ####[facility] LABCLIA [id number] [place] [address] [place] Eosinophils (Bld) [#/Vol]0.22 10*3/uLNormal<0.46[facility] Comment on above:Order Comment: Specimen Type: BLOOD SPECIMENOrdering Facility: [facility] Address:[address] [place] [address] Performed By: #### 76748-1 ####[facility] LABCLIA [id number] [place] [address] [place] Eosinophils/100 WBC (Bld)3.0 %NormalNationwide Children'S HospitalComment on above: Order Comment: Specimen Type: BLOOD SPECIMENOrdering Facility: [facility] Address:[address] [place], [place] [address]Performed By: #### 48489- 8 ####[facility] LABCLIA [id number] [place] [address] [place] OF AMERICAErythrocyte distribution width (RBC) [Ratio]13.5 %Jopyay94.5-15.0N[facility] Children'S HospitalComment on above: Order Comment: Specimen Type: BLOOD SPECIMENOrdering Facility: [facility] Address:[address] [place], [place] [address]Performed By: #### 80632- 8 ####[facility] LABCLIA [id number] [place] [address] [place] OF AMERICAHematocrit (Bld) [Volume fraction]46.3 %High36.0-46.0[facility] on above:Order Comment: Specimen Type: BLOOD SPECIMENOrdering Facility: [facility] Address:[address] [place], [place] [address]Performed By: #### 27763- 8 ####[facility] LABCLIA [id number] [place] [address] [place] AMERICAHemoglobin (Bld) [Mass/Vol]15.0 g/gIPcytpb59.5-15.5CSouthview Medical Center on above:Order Comment: Specimen Type: BLOOD SPECIMENOrdering Facility: [facility] Address:[address] [place], [place] [address]Performed By: #### 22270-6 ####[facility] LABIA [id number] [place] [address] [place] AMERICAImmature granulocytes (Bld) [#/Vol]10*3/uLNormal<0.10[facility] on above:Order Comment: Specimen Type: BLOOD SPECIMENOrdering Facility: [facility] Address:[address] [place], [place] [address]Performed By: #### 13491- 8 ####[facility] LABIA [id number] [place] [address] [place] AMERICAImmature granulocytes/100 WBC (Bld)0.3 %NormalOhio State University [facility] on above:Order Comment: Specimen Type: BLOOD SPECIMENOrdering Facility: [facility] Address:[address] [place], [place] [address]Performed By: #### 56478-3 ####[facility] LABCLIA [id number] [place] [address] [place] AMERICALymphocytes (Bld) [#/Vol]1.46 10*3/uLNormal1.00-4.00[facility] on above:Order Comment: Specimen Type: BLOOD SPECIMENOrdering Facility: [facility] Address:[address] [place], [place] [address]Performed By: #### 22737-0 ####[facility] LABIA [id number] [place] [address] [place] AMERICALymphocytes/100 WBC (Bld)20.2 % NormalOhio [facility] University [facility] on above:Order Comment: Specimen Type: BLOOD SPECIMENOrdering Facility: [facility] Address:[address] [place], [place] [address]Performed By: #### 60666-3 ####[facility] LABIA [id number] [place] [address] [place] AMERICAMCH (RBC) [Entitic mass]31.4 hhAvwaia29.0-34.0[facility] on above:Order Comment: Specimen Type: BLOOD SPECIMENOrdering Facility: [facility] Address:[address] [place], [place] [address]Performed By: #### 58064-9 ####[facility] LABIA [id number] [place] [address] [place] MCHC (RBC) [Mass/Vol]32.4 g/wZSgsviz77.5-36.0[facility] on above:Order Comment: Specimen Type: BLOOD SPECIMENOrdering Facility: [facility] Address:[address] [place] [address] Performed By: #### 18981-1 ####[facility] LABIA [id number] [place] [address] [place] MCV (RBC) [Entitic vol]97.1 gNCppxfs46.0-100.0[facility] on above:Order Comment: Specimen Type: BLOOD SPECIMENOrdering Facility: [facility] Address:[address] [place] [address] Performed By: #### 01512-6 ####[facility] LABCLIA [id number] [place] [address] [place] Monocytes (Bld) [#/Vol]0.84 10*3/uLNormal<0.87[facility] on above:Order Comment: Specimen Type: BLOOD SPECIMENOrdering Facility: [facility] Address:[address] [place] [address] Performed By: #### 35893-9 ####[facility] LABCLIA [id number] [address], [place] [address] [place] Monocytes/100 WBC (Bld)11.6 %NormalOhio State University [facility] on above: Order Comment: Specimen Type: BLOOD SPECIMENOrdering Facility: [facility] Address:[address] [place], [place] [address]Performed By: #### 85380- 8 ####[facility] LABCLIA [id number] [place] [address] [place] AMERICANeutrophils (Bld) [#/Vol]4.65 10*3/uLNormal1.45-7.50[facility] on above:Order Comment: Specimen Type: BLOOD SPECIMENOrdering Facility: [facility] Address:[address] [place], [place] [address]Performed By: #### 25975-9 ####[facility] LABCLIA [id number] [place] [address] [place] AMERICANeutrophils/100 WBC (Bld)64.2 % NormalOhio [facility] University [facility] on above:Order Comment: Specimen Type: BLOOD SPECIMENOrdering Facility: [facility] Address:[address] [place], [place] [address]Performed By: #### 21512-0 ####[facility] LABCLIA [id number] [place] [address] [place] AMERICANucleated RBC (Bld) [#/Vol]10*3/uLNormal<0.01[facility] on above:Order Comment: Specimen Type: BLOOD SPECIMENOrdering Facility: [facility] Address:[address] [place], [place] [address]Performed By: #### 97593-7 ####[facility] LABIA [id number] [place] [address] [place] Nucleated RBC/100 WBC (Bld) [Ratio]0.0 /100 WBCNormalCKettering Health Miamisburg Comment on above:Order Comment: Specimen Type: BLOOD SPECIMENOrdering Facility: [facility] Address:[address] [place] [address] Performed By: #### 22971-3 ####[facility] LABIA [id number] [place] [address] [place] Platelet mean volume (Bld) [Entitic vol]10.0 fLNormal9.0-12.7CSouthview Medical Center on above:Order Comment: Specimen Type: BLOOD SPECIMENOrdering Facility: [facility] Address:[address] [place], [place] [address]Performed By: #### 21031-9 ####[facility] LABIA [id number] [place] [address] [place] Platelets (Bld) [#/Vol]272 10*3/lLFpfaef162-802IqlwtmzzyOhio [facility] University [facility] on above:Order Comment: Specimen Type: BLOOD SPECIMENOrdering Facility: [facility] Address:[address] [place] [address] Performed By: #### 34404-3 ####[facility] LABIA [id number] [place] [address] [place] RBC (Bld) [#/Vol]4.77 10*6/uLNormal3.90-5.20[facility] on above:Order Comment: Specimen Type: BLOOD SPECIMENOrdering Facility: [facility] Address:[address] [place], [place] [address]Performed By: #### 74866-6 ####[facility] LABCLIA [id number] [place] [address] [place] AMERICAWBC (Bld) [#/Vol]7.24 10*3/uLNormal3.70-11.00[facility] on above:Order Comment: Specimen Type: BLOOD SPECIMENOrdering Facility: [facility] Address:[address] [place], [place] [address]Performed By: #### 32085-8 ####[facility] LABCLIA [id number] [place] [address] [place] AMERICACNOVon 03-41-9443CPGYQcwsrz Mercy Hospitalplement C3 [Mass/Vol]on 77-69-1192Hbqtxirbixqyih and review of laboratory resultsNormalCMarietta Memorial HospitalComplement C4 [Mass/Vol]on 38-25-6966Nbpwuesotimfhm and review of laboratory resultsNormal [facility] Centerprehensive metabolic 2000 panelon 11-16-2024 Albumin [Mass/Vol]4.1 g/dLNormal3.9-4.9CSouthview Medical Center on above:Order Comment: Specimen Type: BLOOD SPECIMENOrdering Facility: [facility] Address:[address] [place], [place] [address]Performed By: #### 4485-9, 40868-5, 4498-2 ####[facility] LABCLIA [id number] [place] [address] [place] AMERICAALP [Catalytic activity/Vol]115 U/FEdmsed28-194VobruucyvOhio State University [facility] on above: Order Comment: Specimen Type: BLOOD SPECIMENOrdering Facility: [facility] Address:[address] [place], [place] [address]Performed By: #### 4485- 9, 69908-5, 4498-2 ####[facility] LABCLIA [id number] [address] [address] [place] AMERICAALT [Catalytic activity/Vol]45 U/LHigh7-38[facility] on above:Order Comment: Specimen Type: BLOOD SPECIMENOrdering Facility: [facility] Address:[address] [place], [place] [address]Performed By: #### 4485- 9, 97850-4, 4498-2 ####[facility] LABCLIA [id number] [place] [address] [place] AMERICAAnion gap [Moles/Vol]11 mmol/LNormal8-15[facility] on above:Order Comment: Specimen Type: BLOOD SPECIMENOrdering Facility: [facility] Address:[address] [place], [place] [address]Performed By: #### 4485- 9, 62378-4, 4498-2 ####[facility] LABCLIA [id number] [place] [address] [place] AMERICAAST [Catalytic activity/Vol]41 U/CKadp34-91OuibmoqizOhio State University [facility] on above:Order Comment: Specimen Type: BLOOD SPECIMENOrdering Facility: [facility] Address:[address] [place], [place] [address]Performed By: #### 4485- 9, 62075-8, 4498-2 ####[facility] LABCLIA [id number] [place] [id number] [place] AMERICABilirubin [Mass/Vol]0.5 mg/dLNormal0.2-1.3CSouthview Medical Center on above:Order Comment: Specimen Type: BLOOD SPECIMENOrdering Facility: [facility] Address:[address] [place], [place] [address]Performed By: #### 4485- 9, 26945-0, 4498-2 ####[facility] LABCLIA [id number] [place] [id number] [place] AMERICACalcium [Mass/Vol]9.6 mg/dLNormal8.5-10.2CSouthview Medical Center on above: Order Comment: Specimen Type: BLOOD SPECIMENOrdering Facility: [facility] Address:[address] [place], [place] [address]Performed By: #### 4485- 9, 18703-0, 4498-2 ####[facility] LABCLIA [id number] [place] [address] [place] AMERICAChloride [Moles/Vol]104 mmol/IVmqtey37-418BcnixnztdOhio State University [facility] on above: Order Comment: Specimen Type: BLOOD SPECIMENOrdering Facility: [facility] Address:[address] [place], [place] [address]Performed By: #### 4485- 9, 20944-4, 4498-2 ####[facility] LABCLIA [id number] [place] [address] [place] AMERICACO2 [Moles/Vol] 27 mmol/JLiwini04-76BrthnqhgwOhio State University [facility] on above:Order Comment: Specimen Type: BLOOD SPECIMENOrdering Facility: [facility] Address:[address] [place], [place] [address]Performed By: #### 4485-9, 57042-0, 4498-2 ####[facility] LABIA [id number] [place] [address] [place] AMERICACreatinine [Mass/Vol]1.04 mg/dL High0.58-0.96[facility] on above:Order Comment: Specimen Type: BLOOD SPECIMENOrdering Facility: [facility] Address:[address] [place], [place] [address]Performed By: #### 4485-9, 48591-7, 4498-2 ####[facility] LABCLIA [id number] [place] [id number] [place] AMERICACreatinine and Glomerular filtration rate.predicted panel (S/P/Bld)59 mL/min/1.73m???Low>=60[facility] on above:Order Comment: Specimen Type: BLOOD SPECIMENOrdering Facility: [facility] Address:[address] [place], [place] [id number] Comment: Estimated Glomerular Filtration Rate (eGFR) is calculated using the 2020 CKD-EPI creatinine equation. This equation utilizes serum creatinine, sex, and age as parameters. The creatinine assay has traceable calibration to isotope dilution-mass spectrometry. Refer to KDIGO guidelines for clinical interpretation. In patients with unstable renal function, e.g. those with acute kidney injury, the eGFR may not accurately reflect actual GFR.Performed By: #### 4485-9, 12675-2, 4498-2 ####[facility] LABIA [id number] [place] [id number] [place] AMERICAGlucose [Mass/Vol]86 mg/hNJcanvz77-72ZbylgcunhOhio State University [facility] on above:Order Comment: Specimen Type: BLOOD SPECIMENOrdering Facility: [facility] Address:[address] [place], [place] [id number] Comment: The [place] Diabetes Association (ADA) provides guidance for cutoff values for fasting glucose and random glucose. The ADA defines fasting as no caloric intake for at least 8 hours. Fasting plasma glucose results between 100 to 125 mg/dL indicate increased risk for diabetes (prediabetes).Fasting plasma glucose results greater than or equal to 126 mg/dL meet the criteria for diagnosis of diabetes. In the absence of unequivocal hyperglycemia, results should be confirmed by repeattesting. In a patient with classic symptoms of hyperglycemia or hyperglycemic crisis, random plasmaglucose results greater than or equal to 200 mg/dL meet the criteria for diagnosis of diabetes.Reference: Standards of Medical Care in Diabetes 2016, [place] Diabetes Association. Diabetes Care. 2016.39(Suppl 1).Performed By: #### 4485-9, 20468-4, 4498-2 ####[facility] LABCLIA [id number] [address] [address] [place] AMERICAPotassium [Moles/Vol] 4.5 mmol/LNormal3.7-5.1[facility] ClevelandComment on above:Order Comment: Specimen Type: BLOOD SPECIMENOrdering Facility: [facility] Address:[address] [place], [place] [address]Performed By: #### 4485-9, 11483-2, 4498-2 ####[facility] LABCLIA [id number] [place] [address] [place] AMERICAProtein [Mass/Vol]6.4 g/dLNormal 6.3-8.0[facility] on above:Order Comment: Specimen Type: BLOOD SPECIMENOrdering Facility: [facility] Address:[address] [place], [place] [address]Performed By: #### 4485-9, 94553-2, 4498-2 ####[facility] LABIA [id number] [place] [address] [place] AMERICASodium [Moles/Vol]142 mmol/L Zpstkn976-849ElqhpyqktOhio State University [facility] on above:Order Comment: Specimen Type: BLOOD SPECIMENOrdering Facility: [facility] Address:[address] [place], [place] [address]Performed By: #### 4485-9, 27136-5, 4498-2 ####[facility] LABIA [id number] [place] [address] [place] AMERICAUrea nitrogen [Mass/Vol]15 mg/dL Normal7-21[facility] on above:Order Comment: Specimen Type: BLOOD SPECIMENOrdering Facility: [facility] Address:[address] [place], [place] [address]Performed By: #### 4485-9, 66495-2, 4498-2 ####[facility] LABIA [id number] [place] [id number] [place] AMERICADNA ANTIBODY DS BLDon 11-16-2024 DNA ANTIBODY4 IU/mLNormal<=200[facility] on above:Order Comment: Specimen Type: BLOOD SPECIMENOrdering Facility: [facility] Address:[address] [place] [id number] Comment: Negative: <200 IU/mLEquivocal: 201-300 IU/mLModerate Positive: 301-800 IU/mLStrong Positive: >801 IU/mLPerformed By: #### DNAAB ####[facility] LABIA [id number] [place] [address] [place] AMERICADNA ANTIBODY QUALITATIVE INTERPRETATIONNegativeNormalNegativeNationwide Children'S HospitalComment on above:Order Comment: Specimen Type: BLOOD SPECIMENOrdering Facility: [facility] Address:[address] [place], [place] [address]Performed By: #### DNAAB ####[facility] [id number] [place] [address] [place] AMERICAProt/Creat Uron 17-96-9633Okygioc/Creatinine (U) [Mass ratio]0.14 mg/mg Normal<0.15N[facility] Children'S HospitalComment on above:Order Comment: Specimen Type: URINE SPECIMENOrdering Facility: [facility] Address:[address] [place], [place] [address]Result Comment: Adult Proteinuria Categories:<0.15 mg/mg is considered normal to mildly increased0.15 - 0.50 mg/mg is considered moderately increased>0.50 mg/mg is considered severely increasedK TONNYO. (2013). KDIGO 2012 Clinical Practice Guideline for the Evaluation and Management of Chronic Kidney Disease. Official Journal of the International Society of Nephrology, 3(1), 1-150.Performed By: #### 2890-2 ####[facility] LABIA [id number] [place] [address] [place] AMERICAProtein/Creatinine (U) [Mass ratio]on 11-16-2024 Creatinine (U) [Mass/Vol]107.4 mg/vHMgubds99.0-300.0[facility] Comment on above:Order Comment: Specimen Type: URINE SPECIMENOrdering Facility: [facility] Address:[address] [place] [address] Performed By: #### 2890-2 ####[facility] LABCLIA [id number] [address] [address] [place] Protein (U) [Mass/Vol]15 mg/dLNormal0-20[facility] on above:Order Comment: Specimen Type: URINE SPECIMENOrdering Facility: [facility] Address:[address] [place], [place] [address]Performed By: #### 2890-2 ####[facility] LABCLIA [id number] [address] [address] [place] AMERICAUrinalysis complete panel (U)on 19-85-1630NGKEQXXB UL>9821HighNegativeNationwide Children'S Hospital Comment on above:Order Comment: Specimen Type: URINE SPECIMENOrdering Facility: [facility] Address:[address] [place] [address] Performed By: #### 52820-4 ####[facility] LABCLIA [id number] [address] [address] [place] Bilirubin Ql (U)NegativeNormalNegativeOhio [facility] on above:Order Comment: Specimen Type: URINE SPECIMENOrdering Facility: [facility] Address:[address] [place], [place] [address]Performed By: #### 39346-5 ####[facility] LABCLIA [id number] [address] [address] [place] AMERICAClarity (Unsp spec) ClearNormalClearOhio State University [facility] on above:Order Comment: Specimen Type: URINE SPECIMENOrdering Facility: [facility] Address:[address] [place], [place] [address]Performed By: #### 65410-6 ####[facility] LABCLIA [id number] [address] [place] [address] [place] AMERICAColor (U)YellowNormalYellow [facility] on above:Order Comment: Specimen Type: URINE SPECIMENOrdering Facility: [facility] Address:[address] [place], [place] [address]Performed By: #### 31215-0 ####[facility] LABCLIA [id number] [place] [address] [place] AMERICAEpithelial cells LM.HPF (Urine sed) [#/Area]FewNormalCSouthview Medical Center on above:Order Comment: Specimen Type: URINE SPECIMENOrdering Facility: [facility] Address:[address] [place], [place] [address]Performed By: #### 15662-5 ####[facility] LABIA [id number] [address] OF [place] Glucose Test strip (U) [Mass/Vol]NegativeNormalNegativeOhio [facility] University [facility] on above:Order Comment: Specimen Type: URINE SPECIMENOrdering Facility: [facility] Address:[address] [place], [place] [address]Performed By: #### 95923-3 ####[facility] LABIA [id number] [place] [address] [place] Hemoglobin Ql (U)NegativeNormalNegativeOhio [facility] on above:Order Comment: Specimen Type: URINE SPECIMENOrdering Facility: [facility] Address:[address] [place], [place] [address]Performed By: #### 23197-2 ####[facility] LABIA [id number] [place] [id number] [place] AMERICAHyaline casts (Urine sed) [#/Area]1-3 /LPFAbnormal0 /LPFCSouthview Medical Center on above: Order Comment: Specimen Type: URINE SPECIMENOrdering Facility: [facility] Address:[address] [place], [place] [address]Performed By: #### 98061- 8 ####[facility] LABIA [id number] [place] [address] [place] AMERICAKetones Ql (U)NegativeNormal NegativeOhio State University [facility] on above:Order Comment: Specimen Type: URINE SPECIMENOrdering Facility: [facility] Address:[address] [place], [place] [address]Performed By: #### 55926-5 ####[facility] LABCLIA [id number] [address] [place] [address] [place] AMERICALeukocyte esterase Test strip Ql (U)1+AbnormalNegative [facility] on above:Order Comment: Specimen Type: URINE SPECIMENOrdering Facility: [facility] Address:[address] [place], [place] [address]Performed By: #### 86493-8 ####[facility] LABCLIA [id number] [address] STATES OF [facility]ITY HOSPITALitrite Ql (U)PositiveAbnormalNegativeOhio State University [facility] on above:Order Comment: Specimen Type: URINE SPECIMENOrdering Facility: [facility] Address:[address] [place] [address] Performed By: #### 75860-3 ####[facility] LABCLIA [id number] [place] [id number] [place] pH (U)5.5 [pH]Normal<8.5CSouthview Medical Center on above:Order Comment: Specimen Type: URINE SPECIMENOrdering Facility: [facility] Address:[address] [place], [place] [address]Performed By: #### 64173- 8 ####[facility] LABCLIA [id number] [place] [id number] [place] WHITE HOSPITALProtein (U) [Mass/Vol]Negative NormalNegativeOhio State University [facility] on above:Order Comment: Specimen Type: URINE SPECIMENOrdering Facility: [facility] Address:[address] [place], [place] [address]Performed By: #### 38258-4 ####[facility] LABCLIA [id number] [place] [address] [place] WHITE HOSPITALRBC LM.HPF (Urine sed) [#/Area]0-2 /HPFNormal0-2 /HPF [facility]S HospitalCommymichigan medical center gladwin on above:Order Comment: Specimen Type: URINE SPECIMENOrdering Facility: [facility] Address:[address] [place], [place] [address]Performed By: #### 44002-2 ####[facility] [id number] [place] [address] [place] AMERICASpecific gravity (U) [Rel density]1.489Zsigck5.005-1.030N[facility] Children'S HospitalComment on above:Order Comment: Specimen Type: URINE SPECIMENOrdering Facility: [facility] Address:[address] [place], [place] [address]Performed By: #### 54809-8 ####[facility] [id number] [address] STATES [facility] Urobilinogen Ql (U)0.2 EU/dLNormal0.2-1.0 EU/dLNationwide Children'S HospitalCommymichigan medical center gladwin on above:Order Comment: Specimen Type: URINE SPECIMENOrdering Facility: [facility] Address:[address] [place] [address] Performed By: #### 63790-2 ####[facility] [id number] [place] [address] [place] WBC LM.HPF (Urine sed) [#/Area]0-5 /HPFNormal0-5 /HPFNationwide Children'S Hospital Comment on above:Order Comment: Specimen Type: URINE SPECIMENOrdering Facility: [facility] Address:[address] [place] [address] Performed By: #### 55695-0 ####[facility] LABIA [id number] [address] [place] CNOVon 90-93-7765UHVTNdcrmbJrjtdtafu Clinic ClevelandCNOVon 03-34-5538MZYITsfyxu [facility] ClevelandHISTORY PHYSICALon 39-89-8028SHYBCBA PHYSICALNormal [facility] Clemarymount hospitalArterial blood standard base excess determination by calculationOrdered By: Yuriy Conway on 60-42-7115Bmiq excess standard Calc (BldA) [Moles/Vol]Arterial blood standard base excess determination by nobnpiapsbl-0-7VnsoiivrtSelect Medical Cleveland Clinic Rehabilitation Hospital, AvonBasic Metabolic Panelon 70-13-8908Rweix gap [Moles/Vol]19.7 mmol/LHigh6.0-15.0The [facility] Physician GroupComment on above:Performed By: #### BMP #### [place] [address] USACalcium [Mass/Vol]6.1 mg/dLOff scale low8.6-10.3The [facility] Physician GroupComment on above:Result Comment: Critical Result Called to and read back by: SUSAN PRATT at: 09/19/2024 09:27:53 by:[id number] PERFORMED BY: [place] [address] PATHOLOGIST VISUAL SPECIALIST ZHAO WORRELL M.D.Performed By: #### BMP #### [place] [address] USAChloride [Moles/Vol]107 mmol/WHhzdjh48-549Eai [facility] Physician GroupComment on above:Performed By: #### BMP #### [place] [address] USACO2 [Moles/Vol]9.4 mmol/LLow21.0-31.0The [facility] Physician GroupComment on above:Performed By: #### BMP #### [place] [address] USACreatinine [Mass/Vol]mg/dLLow0.60-1.20The [facility] Physician GroupComment on above:Result Comment: When the Creatinine is <0.20, the GFR is unable to be calculated.Performed By: #### BMP #### [place] [address] USAGlucose [Mass/Vol]28 mg/dLOff scale htz64-422Ego [facility] Physician GroupComment on above:Result Comment: Critical Result Called to and read back by: SUSAN PRATT at: 09/19/2024 09:27:53 by:[id number] Random Glucose Reference Range is dependent on time and content of last meal. Glucose of more than 200 mg/dL in a nonstressed, ambulatory subject supports the diagnosis of Diabetes Mellitus. ADA recommended reference rangePerformed By: #### BMP #### [facility] [address] [place] [address] USAPotassium [Moles/Vol]4.1 mmol/LNormal3.5-5.1The [facility] Physician GroupComment on above:Performed By: #### BMP #### [facility] [address] [place] [address] USASodium [Moles/Vol]132 mmol/WKzi821-367Yyu [facility] Physician [facility] HospitalComment on above:Performed By: #### BMP #### [facility] [address] [place] [address] USAUrea nitrogen [Mass/Vol]12 mg/dLNormal7-25The [facility] Physician GroupComment on above:Performed By: #### BMP #### [facility] [address] [place] [address] USABasophils Auto (Bld) [#/Vol]Ordered By: Tobin Alvarez on 60-86-8522Mmrylbosn (Bld) [#/Vol]Automated basophil count0.0-0.2FSelect Medical Cleveland Clinic Rehabilitation Hospital, AvonBasophils/100 WBC Auto (Bld)Ordered By: Tobin Alvarez on 53-77-2913Rdkdccren/100 WBC (Bld)Automated basophil %.[facility] CenterBlood carbon dioxide, total measurement by calculation (moles/volume)Ordered By: Yuriy Conway on 35-33-3968ZW7 Calc (Bld) [Moles/Vol] Blood carbon dioxide, total measurement by calculation (moles/volume)23-29 [facility] CenterCalcium [Mass/volume] in Serum or PlasmaOrdered By: Tobin Alvarez on 42-38-3497Bfzmqwu [Mass/Vol]Calcium [Mass/volume] in Serum or PlasmaCritically low8.6-10.3FSelect Medical Cleveland Clinic Rehabilitation Hospital, AvonComment on above:Critical Result Called to and read back by: SUSAN PRATT at: 09/19/2024 09:27:53 by:[id number] dioxide WBOrdered By: Yuriy Conway on 09-19-2024 Basophil percentageBasophil daczgjwqsrSba23-936TcudmqkpwSouthern [facility] Medical Center Carbon dioxide, total [Moles/volume] in Serum or PlasmaOrdered By: Tobin Alvarez on 98-81-5915NU6 [Moles/Vol]Carbon dioxide, total [Moles/volume] in Serum or QzdofwBhy32.0-31.0[facility] CenterChloride [Moles/volume] in Serum or PlasmaOrdered By: Tobin Alvarez on 96-86-5573Qnhfbcxm [Moles/Vol] Chloride [Moles/volume] in Serum or Zwyzjp67-523YkwmdkjfcSouthern Ohio Medical CenterComplete Blood Count Auto Diffon 99-97-6061Hkaahbnpy (Bld) [#/Vol]0.0 10*3/uLNormal0.0-0.2The [facility] GroupComment on above:Order Comment: REDRAWResult Comment: PERFORMED BY: [facility] [address] [place] [id number] PATHOLOGIST VISUAL SPECIALIST ZHAO WORRELL M.D.Performed By: #### CBC ####[address] [address] USABasophils/100 WBC (Bld)0.4 %Normal. The [facility] Physician GroupComment on above:Order Comment: REDRAWPerformed By: #### CBC ####[place] [address] [place] [address] USAEosinophils (Bld) [#/Vol]0.2 10*3/uLNormal0.0-0.45The [facility] Physician GroupComment on above:Order Comment: REDRAWPerformed By: #### CBC ####[address] [address] USAEosinophils/100 WBC (Bld)2.1 %Normal.The [facility] Physician GroupComment on above:Order Comment: REDRAWPerformed By: #### CBC ####[address] [address] USAErythrocyte distribution width (RBC) [Ratio]15.1 % Kvfoau11.9-15.3The [facility] Physician GroupComment on above:Order Comment: REDRAWPerformed By: #### CBC ####[address] [address] USAHematocrit (Bld) [Volume fraction]41.7 %Normal 34.0-46.4The [facility] Physician GroupComment on above:Order Comment: REDRAW Performed By: #### CBC ####[address] [address] USAHemoglobin (Bld) [Mass/Vol]13.9 g/kANrjfbp03.8-15.4 The [facility] Physician GroupComment on above:Order Comment: REDRAWPerformed By: #### CBC ####[address] [address] USALymphocytes (Bld) [#/Vol]1.2 10*3/uLNormal1.00-4.8The [facility] Physician GroupComment on above:Order Comment: REDRAWPerformed By: #### CBC ####[address] [address] USALymphocytes/100 WBC (Bld)14.0 %Normal.The [facility] Physician GroupComment on above:Order Comment: REDRAWPerformed By: #### CBC ####[address] [address] USAMCH (RBC) [Entitic mass]31.7 xbOnoqib81.7-34.3The [facility] Physician GroupComment on above:Order Comment: REDRAWPerformed By: #### CBC ####[address] [place] [address] USAMCV (RBC) [Entitic vol]94.7 vQIvbenr74-240Tza [facility] Physician Group Comment on above:Order Comment: REDRAWPerformed By: #### CBC ####[address] [address] USAMean Corpuscular HGB Conc33.5 g/aRNabbyq35.0-35.0The [facility] Physician GroupComment on above:Order Comment: REDRAWPerformed By: #### CBC ####[address] [address] USAMonocytes (Bld) [#/Vol]1.0 10*3/uLHigh0.0-0.8 The [facility] Physician GroupComment on above:Order Comment: REDRAWPerformed By: #### CBC ####[address] [address] USAMonocytes/100 WBC (Bld)11.3 %Normal.The [facility] Physician GroupComment on above:Order Comment: REDRAWPerformed By: #### CBC ####[address] [address] USANeutrophils (Bld) [#/Vol]6.2 10*3/uL Normal1.8-7.7The [facility] Physician GroupComment on above:Order Comment: REDRAW Performed By: #### CBC ####[address] [address] USANeutrophils/100 WBC (Bld)72.2 %Normal.The [facility] Physician GroupComment on above:Order Comment: REDRAWPerformed By: #### CBC ####[address] [address] USANRBC% 0.2 /100{WBC}Normal0-0.5The [facility] Physician GroupComment on above:Order Comment: REDRAWPerformed By: #### CBC ####[address] [address] USAPlatelet mean volume (Bld) [Entitic vol]8.2 fL Normal6.3-10.7The [facility] Physician GroupComment on above:Order Comment: REDRAWPerformed By: #### CBC ####[place] [address] [place] [address] USAPlatelets (Bld) [#/Vol]237 10*3/wROdnnre661-801Tmz [facility] Physician GroupComment on above:Order Comment: REDRAWPerformed By: #### CBC ####[place] [address] [place] [address] USARBC (Bld) [#/Vol]4.40 10*6/uLNormal3.60-5.00The [facility]ician Group Comment on above:Order Comment: REDRAWPerformed By: #### CBC ####[place] [address] [place] [address] USAWBC (Bld) [#/Vol]8.6 10*3/uLNormal3.8-11.6The [facility] Physician GroupComment on above:Order Comment: REDRAWPerformed By: #### CBC ####[place] [id number] USACreatinine [Mass/volume] in Serum or Plasma Ordered By: Tobin Alvarez on 99-30-3960Aigcbanfez [Mass/Vol]Creatinine [Mass/volume] in Serum or PlasmaLow0.60-1.20[facility] Comment on above:When the Creatinine is <0.20, the GFR is unable to be calculated.ECG 12 lead ECGon 18-27-4261WKV 12 lead ECGASHTABULA [place] [address] Electrocardiograph Report Signed Patient: Jesus Wolf MR#: [id number] 1485 : 1955 Acct:[id number] Age/Sex: 69 / F ADM Date: 09/19/24 Loc: [place] Room: Type: [facility] Attending Dr: Yuriy Conway MD Ordering Provider: Yuriy Conway MD, [facility] Date of Service: 09/19/2411/08/801 ECG/ECG 12 lead [...] for LVH, may be normal variant ( Yao product ) Prolonged QT Abnormal ECG When compared with ECG of 26-Nov-2023 13:38, QT has become more prolong Confirmed by ALINE SOUZA MD ([id number]) on 09/19/2024 1:52:19 PM Referred By: Electronically Signed By: ALINE SOUZA MD Transcribed By: MUS Signed By Aline Souza MD 0 09/19/[address] [place] [address] Physician [facility] HospitalECH echo transesophageal TEEon 80-97-2203PVN echo transesophageal [facility]EEASHTABULA [facility] [place] [address] [place] [address] Echocardiogram Signed Patient: Jesus Wolf MR#: [id number] 1485 : 1955 Acct:[id number] Age/Sex: 69 / F ADM Date: 09/19/24 Loc: [place] Room: Type: [facility] Attending Dr: Yuriy Conway MD Ordering Provider: Yuriy Conway MD, [facility] Date of Service: 09/19/24/ ECH/ECH echo transesophageal PHYLLIS: Aortic Valve Stenosis. Copies to: Yuriy Conway MD, [facility] HR: 81 Reason For Study: S/P Watchman [...] 09/19/24 0852 Signed By: Yuriy Conway MD, FACC 09/19/24 1043[facility] Physician GroupEosinophils Auto (Bld) [#/Vol]Ordered By: Tobin Alvarez on 09-19-2024 Eosinophils (Bld) [#/Vol]Automated eosinophil count0.0-0.45[facility] CenterEosinophils/100 WBC Auto (Bld)Ordered By: Tobin Alvarez on 53-86-0577Evtpcnrlpvj/100 WBC (Bld)Automated eosinophil %.[facility] CenterErythrocyte distribution width Auto (RBC) [Ratio]Ordered By: Tobin Alvarez on 33-17-7121Bsbxwriwjro distribution width (RBC) [Ratio] Erythrocyte distribution width [Ratio] by Automated count11.9-15.3FSelect Medical Cleveland Clinic Rehabilitation Hospital, AvonGlucose Glucometer (BldC) [Mass/Vol]Ordered By: Yuriy Conway on 14-62-6582Fcfjvxs [Mass/Vol]Capillary blood glucose measurement by glucometer (mass/volume)70-105[facility] CenterGlucose [Mass/Vol]Capillary blood glucose measurement by glucometer (mass/volume) [facility] CenterComment on above:Random Glucose Reference Range is dependent on time and content of last meal. Glucose of more than 200 mg/dL in a nonstressed, ambulatory subject supports the diagnosis of Diabetes Mellitus.Glucose Poct Glucometerson 28-38-2042Amqmcdv8Qrc2: Cleaned MeterNormal The [facility] Physician GroupComment on above:Result Comment: PERFORMED BY: [facility] [address] [place] [address] PATHOLOGIST VISUAL SPECIALIST ZHAO WORRELL M.D.Performed By: #### GLULS ####Point of Care testing, Glucose [Mass/Vol]79 mg/dLNoCone Health Alamance Regional Physician GroupComment on above: Result Comment: Random Glucose Reference Range is dependent on time and content of last meal. Glucose of more than 200 mg/dL in a nonstressed, ambulatory subject supports the diagnosis of Diabetes Mellitus.Performed By: #### GLULS ####Point of Care testing,Glucose [Mass/volume] in Serum or PlasmaOrdered By: Tobin Alvarez on 89-68-0943Vcmbaiz [Mass/Vol]Glucose [Mass/volume] in Serum or PlasmaCritically itr02-146RprupccznSouthern Ohio Medical CenterComment on above:Critical Result Called to and read back by: SUSAN PRATT at: 09/19/2024 09:27:53 by:[id number] recommended reference rangeRandom Glucose Reference Range is dependent on time and content of last meal. Glucose of more than 200 mg/dL in a nonstressed, ambulatory subject supports the diagnosis of Diabetes Mellitus.Hematocrit Auto (Bld) [Volume fraction]Ordered By: Tobin Alvarez on 53-61-0406Iajwxrdwvc (Bld) [Volume fraction]Hematocrit [Volume Fraction] of Blood by Automated count34.0-46.4 [facility] CenterHemoglobin Calc (Bld) [Mass/Vol]Ordered By: Yuriy Conway on 51-30-8541Oajhjkimle (Bld) [Mass/Vol]Blood hemoglobin measurement by calculation (mass/volume)12.0-17.0[facility] CenterHemoglobin [Mass/volume] in BloodOrdered By: Tobin Alvarez on 09-19-2024 Hemoglobin (Bld) [Mass/Vol]Hemoglobin [Mass/volume] in Blood11.8-15.4FSelect Medical Cleveland Clinic Rehabilitation Hospital, AvonISTAT ABGon 93-66-0863EY4 [Moles/Vol]27 mmol/QOzufdk43-56 The [facility] Physician GroupComment on above:Performed By: #### ISABG #### [facility] [address] [place] [address] USAGlucose [Mass/Vol]75 mg/xEDiduih97-060Rvq [facility] Physician GroupComment on above:Result Comment: PERFORMED BY: [place] [address] PATHOLOGIST VISUAL SPECIALIST ZHAO WORRELL M.D.Performed By: #### ISABG #### [facility] [address] [place] [address] USAHCO3 (Bld) [Moles/Vol]25.4 mmol/UUkotrg10.0-28.0The [facility] Physician GroupComment on above:Performed By: #### ISABG #### [facility] [address] [place] [address] USAHemoglobin (Bld) [Mass/Vol]13.9 g/vZXicyem80.0-17.0The [facility] Physician GroupComment on above:Performed By: #### ISABG #### [facility] [address] [place] [address] USAISTAT Base Excess1 mmol/LNormal-2 TO 3The [facility] Physician GroupComment on above:Performed By: #### ISABG #### [facility] [address] [place] [address] USAISTAT Ionized Calcium1.11 mol/LLow1.12-1.32The [facility] Physician GroupComment on above:Performed By: #### ISABG #### [facility] [address] [place] [address] USAISTAT CJV698.6 mm[Hg]Ydzwyh10-96Nku [facility] Physician GroupComment on above:Performed By: #### ISABG #### [facility] [address] [place] [address] USAISTAT Ph7.200Exjvkk5.31-7.45The [facility]ician [facility] Comment on above:Performed By: #### ISABG #### [facility] [address] [place] [address] USAISTAT PO239 mm[Hg]Bpd49-388Ijx [facility]ician Group Comment on above:Performed By: #### ISABG #### [facility] [address] [place] [address] USAOxygen saturation in Blood76 %Zpb02-47Xiq [facility] Physician GroupComment on above:Result Comment: Reference ranges reflect baseline specimens onlyPerformed By: #### ISABG #### [facility] [address] [place] [address] USAPotassium [Moles/Vol]4.4 mmol/LNormal3.5-4.9The [facility] Physician GroupComment on above:Performed By: #### ISABG #### [place] [address] USASodium [Moles/Vol]139 mmol/GNmmlcy828-340Wqo [facility] Physician GroupComment on above:Performed By: #### ISABG #### [place] [address] USAISTAT ABGOrdered By: Yuriy Conway on 09-19-2024 Hematocrit (Bld) [Volume fraction]41.0 %Fivntl55.0-51.0[facility] CenterComment on above:Performed By: #### ISABG #### [facility] [address] [place] [address] USALeukocytes [#/volume] corrected for nucleated erythrocytes in Blood by Automated counOrdered By: Tobin Alvarez on 69-78-7745VMK corrected for nucl RBC Auto (Bld) [#/Vol]Leukocytes [#/volume] corrected for nucleated erythrocytes in Blood by Automated coun3.8-11.6FSelect Medical Cleveland Clinic Rehabilitation Hospital, Avon Lymphocytes Auto (Bld) [#/Vol]Ordered By: Tobin Alvarez on 09-19-2024 Lymphocytes (Bld) [#/Vol]Lymphocytes [#/volume] in Blood by Automated count 1.00-4.8[facility] CenterLymphocytes/100 WBC Auto (Bld)Ordered By: Tobin Alvarez on 94-87-7860Ipoewcmwqcc/100 WBC (Bld)Lymphocytes/100 leukocytes in Blood by Automated count.[facility] OhioH Auto (RBC) [Entitic mass]Ordered By: Tobin Alvarez on 22-48-6085FBP (RBC) [Entitic mass]MCH [Entitic mass] by Automated count24.7-34.3FSelect Medical Cleveland Clinic Rehabilitation Hospital, AvonMCHC Auto (RBC) [Mass/Vol]Ordered By: Tobin Alvarez on 16-37-3545JQIZ (RBC) [Mass/Vol]MCHC [Mass/volume] by Automated count32.0-35.0[facility] CenterMCV Auto (RBC) [Entitic vol]Ordered By: Tobin Alvarez on 58-19-4987DWB (RBC) [Entitic vol]MCV [Entitic volume] by Automated mzhwy79-146 [facility] CenterMonocytes Auto (Bld) [#/Vol]Ordered By: Tobin Alvarez on 65-50-5054Ndghchsod (Bld) [#/Vol]Automated blood monocyte countHigh 0.0-0.8[facility] CenterMonocytes/100 WBC Auto (Bld)Ordered By: Tobin Alvarez on 54-33-0108Dogudfenu/100 WBC (Bld)Automated monocyte %. [facility] CenterNeutrophils Auto (Bld) [#/Vol]Ordered By: Tobin Alvarez on 25-27-5756Wlnhvlbylju (Bld) [#/Vol]Neutrophils [#/volume] in Blood by Automated count1.8-7.7FSelect Medical Cleveland Clinic Rehabilitation Hospital, AvonNeutrophils/100 WBC Auto (Bld)Ordered By: Tobin Alvarez on 61-74-4288Vwdgjyolaao/100 WBC (Bld) Automated neutrophil %.[facility] CenterNo Panel Information Ordered By: Yuriy Conway on 62-35-2612Mnbvgbu Glucose CommentGlu2: cleaned meterSouthern Ohio Medical CenterNo Panel InformationOrdered By: Tobin Alvarez on 54-19-0065Aprjhtbdz GFR (CKD-EPI)N/[facility] Creatinine Clearance (ChemN/[facility] CampusNucleated erythrocytes [Presence] in Blood by Automated countOrdered By: Tobin Alvarez on 53-90-2664Porohzoep RBC Auto Ql (Bld)Nucleated erythrocytes [Presence] in Blood by Automated count0-0.5FSelect Medical Cleveland Clinic Rehabilitation Hospital, AvonPlatelet mean volume Auto (Bld) [Entitic vol]Ordered By: Tobin Alvarez on 55-55-6963Fxtvuvqb mean volume (Bld) [Entitic vol]Platelet mean volume [Entitic volume] in Blood by Automated count6.3-10.7FSelect Medical Cleveland Clinic Rehabilitation Hospital, AvonPlatelets Auto (Bld) [#/Vol]Ordered By: Tobin Alvarez on 74-91-7150Ywgghltai (Bld) [#/Vol]Platelets [#/volume] in Blood by Automated -148AzqhvqpzlSouthern Ohio Medical Center Potassium (Bld) [Moles/Vol]Ordered By: Yuriy Conway on 79-24-5278Ylegkwgxi [Moles/Vol]Whole blood potassium measurement3.5-4.9[facility] CenterPotassium [Moles/volume] in Serum or PlasmaOrdered By: Tobin Alvarez on 80-53-9362Rnbaqgmru [Moles/Vol]Potassium [Moles/volume] in Serum or Plasma 3.5-5.1FSelect Medical Cleveland Clinic Rehabilitation Hospital, AvonRBC Auto (Bld) [#/Vol]Ordered By: Tobin Alvarez on 06-44-2137TEQ (Bld) [#/Vol]Erythrocytes [#/volume] in Blood by Automated count3.60-5.00ProMedica Memorial Hospitalerum or plasma anion gap determinationOrdered By: Tobin Alvarez on 04-44-0097Hpydo gap [Moles/Vol] Serum or plasma anion gap determinationHigh6.0-15.0ProMedica Memorial Hospitalodium (Bld) [Moles/Vol]Ordered By: Yuriy Conway on 24-37-0002Xmcrps [Moles/Vol]Whole blood sodium bghsswsmwuu733-370KslesxkxdProMedica Memorial Hospitalodium [Moles/volume] in Serum or PlasmaOrdered By: Tobin Alvarez on 67-82-4418Lngqiy [Moles/Vol]Sodium [Moles/volume] in Serum or AydmmhXnc115-160 [facility] CenterUrea nitrogen [Mass/volume] in Serum or Plasma Ordered By: Tobin Alvarez on 16-43-8600Caxf nitrogen [Mass/Vol]Urea nitrogen [Mass/volume] in Serum or Plasma7-25[facility] CenterWBC Auto (Bld) [#/Vol]Ordered By: Tobin Alvarez on 81-33-4162ESL (Bld) [#/Vol]Leukocytes [#/volume] in Blood by Automated count3.8-11.6FSelect Medical Cleveland Clinic Rehabilitation Hospital, Avon Whole blood bicarbonate measurementOrdered By: Yuriy Conway on 63-12-7029HIL2 (Bld) [Moles/Vol]Whole blood bicarbonate xbwgcxoprwd19.0-28.0[facility] CenterWhole blood ionized calcium measurement (moles/volume)Ordered By: Yuriy Conway on 10-66-7717Opaikym.ionized (Bld) [Moles/Vol]Whole blood ionized calcium measurement (moles/volume)Low1.12-1.32[facility] Whole blood oxygen saturation measurementOrdered By: Yuriy Conway on 63-34-9500Ucdirp saturation in BloodWhole blood oxygen saturation measurementLow 95-98[facility] CenterComment on above:Reference ranges reflect baseline specimens onlyWhole blood pHOrdered By: Yuriy Conway on 94-19-2592pO (Bld)Whole blood pH7.31-7.45[facility] CenterCT angio cheston 30-20-5493WS angio [facility] [place] [address] [place] [address] CT Scan Report Signed Patient: Jesus Wolf MR#: [id number] 1485 : 1955 Acct:[id number] Age/Sex: 69 / F ADM Date: 09/15/24 Loc: CT Room: Type: [facility] Attending Dr: Yuriy Conway MD Copies to: Yuriy Conway MD, [facility] Ordering Provider: Yuriy Conway MD, [facility] Date of Service: 09/15/24 CT/CT angio chest: [...] Concepcion Jr., D.O.09/15/2024 3:59 PM Dictation Location: [place] [address] Transcribed By: NICOLE 09/15/24 1559 Dictated By: Jose Concepcion Jr, DO 09/15/24 1553 Signed By: 09/15/24 1559NoCone Health Alamance Regional Physician GroupCreatinine (Bld) [Mass/Vol] Ordered By: Yuriy Conway on 43-86-0435Lfxsawnmtv [Mass/Vol]Whole blood creatinine measurement0.6-1.3FSelect Medical Cleveland Clinic Rehabilitation Hospital, AvonComment on above: ER/ESD physician is notified/shown all ISTAT results.Critical values may be confirmed by laboratorytesting ifdeemed necessary by ER attending doctor.ISTAT XRay CREon 77-01-6575Urtvwsdfvc [Mass/Vol]1.2 mg/dLNormal0.6-1.3The [facility] Physician GroupComment on above:Result Comment: ER/ESD physician is notified/shown all ISTAT results. Critical values may be confirmed by laboratory testing if deemed necessary by ER attending doctor.Performed By: #### ISCRE #### [facility] [address] [place] [address] USAISTAT GFR49.306NoCone Health Alamance Regional Physician GroupComment on above:Result Comment: PERFORMED BY: [place] [address] PATHOLOGIST VISUAL SPECIALIST ZHAO WORRELL M.D.Performed By: #### ISCRE #### [facility] [address] [place] [address] USANo Panel InformationOrdered By: Yuriy Conway on 42-34-1157Gnahxzv Estimated GFR (eGFR)49.306[facility] TRANSTHORACIC ECHO (TTE) COMPLETEon 75-58-3654KOIFDPGXTISTS ECHO (TTE) COMPLETE [address], [address] [facility], [place] [address] TRANSTHORACIC ECHOCARDIOGRAM REPORT Patient Name: JESUS Recio Physician: [id number] Yuriy Conway MD, [facility] Study Date: 09/12/2024 Ordering Provider: [id number] YURIY CONWAY MRN/PID: [id number] Fellow: Nurse: Date of /Age: 7 1955 / 69 years Athletics Director: Gender Assigned at F Additional Staff: : Height: 170.18 cm Admit Date: Weight: 115.67 kg Admission Status: Outpatient BSA / BMI: 2.24 m2 / 39.94 Department Location: [facility] Heart kg/m2 Sherry Blood Pressure: 140 /90 mmHg Study Type: TRANSTHORACIC ECHO (TTE) COMPLETE Diagnosis/ICD: Chronic diastolic (congestive) heart failure (CHF)-I50.32; Shortness of breath-R06.02 Indication: CHF SOB CPT Codes: Echo Complete w Full Doppler-20545 Patient History: Pertinent History: A-Fib, HTN, Hyperlipidemia [...] is structurally normal. There is mild tricuspid regurgitation.Estimated RVSP 62 mmHg consistent with moderate-severe pulmonary hypertension. Pulmonic Valve: The pulmonic valve is not well visualized. There is no indication of pulmonic valveregurgitation. Pericardium: No pericardial effusion noted. Aorta: The aortic root is abnormal. Suspected flap in the ascending aorta raising concern for aortic dissection without significant ascending aortic dilatation, CT scan of the ascending aorta is recommended. Systemic Veins: The inferior vena cava appears normal in size. In comparison to the previous echocardiogram(s): When compared to study from 09/17/2022, the RVSP hasincreased from 36 mmHg up to 62 mmHg, [...] aorta raising concern for aortic dissection without significantascending aortic dilatation, CT scan of the ascending [...] 16.57 (<8.0) [facility] (more content not included)...[facility] HospitalX-ray reportOrdered By: Jose Concepcion on 52-56-3972Xrlez report [facility] Main [address] [address] XRay Report Signed Patient: Jesus Wolf MR#: [id number] : 1955 Acct:[id number] Age/Sex: 69 / F ADM Date: 5 Loc: RT Room: Type: [facility] Attending Dr: Yuriy Conway MD Copies to: Yuriy Conway MD, [facility]~ Ordering Provider: Yuriy Conway MD, [facility] Date of Service: 08/29/24 XR/XR chest 2V*: I48.0,Z79.899 Chest 2 views CLINICAL HISTORY: Follow-up long-term high risk medication use. COMPARISON: Chest 02/07/2022 FINDINGS: Heart normal in size. Right mid lung scarring. No new consolidation pneumothorax pleural effusion or free air. XR/XR chest 2V* IMPRESSION: NO ACUTE CARDIOPULMONARY ABNORMALITY. Impression dictated by: Jose Concecpion Jr., D.OAjay08/29/2024 3:02 PM Dictation Location: [place] [address] Transcribed By: [facility] 08/29/24 1502 Dictated By: Jose Concepcion Jr, DO 08/29/24 1502 Signed By: 08/29/24 1502 [facility]*on 79-50-9054JH chest 2V*[facility] Main [address] [address] XRay Report Signed Patient: Jesus Wolf MR#: [id number] : 1955 Acct:[id number] Age/Sex: 69 / F ADM Date: 08/29/24 Loc: RT Room: Type: [facility] Attending Dr: Yuriy Conway MD Copies to: Yuriy Conway MD, [facility] Ordering Provider: Yuriy Conway MD, [facility] Date of Service: 08/29/24 XR/XR chest 2V*: I48.0,Z79.899 Chest 2 views CLINICAL HISTORY: Follow-up long-term high risk medication use. COMPARISON: Chest 02/07/2022 FINDINGS: Heart normal in size. Right mid lung scarring. No new consolidation pneumothorax pleural effusion or free air. XR/XR chest 2V* IMPRESSION: NO ACUTE CARDIOPULMONARY ABNORMALITY. Impression dictated by: Jose Concepcion Jr., D.O.08/29/2024 3:02 PM Dictation Location: [place] [address] Transcribed By: [facility] 08/29/24 1502 Dictated By: Jose Concepcion Jr, DO 08/29/24 1502 Signed By: 08/29/24 1502[facility]ician GroupAK WATCHMAN FULL CONTRASTon 58-87-6500GU WATCHMAN FULL CONTRASTInterpreted By: Denis Chand, ADDENDUM: NON-CARDIOVASCULAR FINDINGS INCLUDED [...] STRUCTURES ARE THE SOLE RESPONSIBILITY OF THE WELDER FITTER HELPER SUBMITTING THE ORIGINAL REPORT (NOT THIS ADDENDUM) Signed by: Denis Chand 08/30/2024 1:20 PM -------- ORIGINAL REPORT -------- Dictation workstation: [id number] Interpreted By: Beverly Steiner and Amoah Joseph STUDY: CT WATCHMAN FULL CONTRAST; 08/15/2024 12:48 pm INDICATION: Signs/Symptoms:Post Watchman device surveillance. ,I48.0 Paroxysmal atrial fibrillation (Multi),R04.0 Epistaxis,D64.9 Anemia, unspecified,Z01.818 Encounter for other preprocedural examination COMPARISON: CT WATCHMAN DONE ON 04/07/2024. ACCESSION NUMBER(S): [id number] ORDERING CLINICIAN: JUAN CHINO TECHNIQUE: Using multi [...] is contrast within the (more content not included)...[facility] CNPNon 41-74-7187BYOQCctvevKzdikbgnd Clinic ClevelandRenal function 2000 panelon 13-82-6197Rzhwoha [Mass/Vol]3.7 g/dLLow3.9-4.9CSouthview Medical Center on above:Order Comment: Specimen Type: BLOOD SPECIMENOrdering Facility: External Submitter Address: , ,Performed By: #### 25212-4 ####[facility] LABCLIA [id number] [place] [address] [place] AMERICAAnion gap [Moles/Vol]11 mmol/LNormal8-15[facility] on above:Order Comment: Specimen Type: BLOOD SPECIMENOrdering Facility: External Submitter Address: , ,Performed By: #### 96030-9 ####[facility] LABCLIA [id number] [place] [address] [place] AMERICACalcium [Mass/Vol]9.1 mg/dLNormal 8.5-10.2CSouthview Medical Center on above:Order Comment: Specimen Type: BLOOD SPECIMENOrdering Facility: External Submitter Address: , ,Performed By: #### 41102-6 ####[facility] LABCLIA [id number] [place] [address] [place] AMERICAChloride [Moles/Vol] 106 mmol/HLzjjkv41-506CshxvavtkOhio [facility] on above:Order Comment: Specimen Type: BLOOD SPECIMENOrdering Facility: External Submitter Address: , , Performed By: #### 95358-6 ####[facility] LABCLIA [id number] [place] [address] [place] ADOLFO CO2 [Moles/Vol]24 mmol/HGbeowl64-29IltgdytuqOhio State University [facility] on above: Order Comment: Specimen Type: BLOOD SPECIMENOrdering Facility: External Submitter Address: , ,Performed By: #### 30774-4 ####[facility] LABCLIA [id number] [place] [address] [place] AMERICACreatinine [Mass/Vol]1.03 mg/dLHigh0.58-0.96[facility] on above:Order Comment: Specimen Type: BLOOD SPECIMENOrdering Facility: External Submitter Address: , ,Performed By: #### 65247-9 ####[facility] LABCLIA [id number] [place] [address] [place] AMERICACreatinine and Glomerular filtration rate.predicted panel (S/P/Bld)59 mL/min/1.73m???Low>=60[facility] on above:Order Comment: Specimen Type: BLOOD SPECIMENOrdering Facility: External Submitter Address: , ,Result Comment: Estimated Glomerular Filtration Rate (eGFR) is calculated using the 2020 CKD-EPI creatinine equation. This equation utilizes serum creatinine, sex, and age as parameters. The creatinine assay has traceable calibration to isotope dilution- mass spectrometry. Refer to KDIGO guidelines for clinical interpretation. In patients with unstable renal function, e.g. those with acute kidney injury, the eGFR may not accurately reflect actual GFR.Performed By: #### 10814-1 ####[facility] LABCLIA [id number] [address] [address] [place] OF AMERICAGlucose [Mass/Vol]82 mg/dLNormal 74-99[facility] on above:Order Comment: Specimen Type: BLOOD SPECIMENOrdering Facility: External Submitter Address: , ,Result Comment: The [place] Diabetes Association (ADA) provides guidance for cutoff values for fasting glucose and random glucose. The ADA defines fasting as no caloric intake for at least 8 hours. Fasting plasma glucose results between 100 to 125 mg/dL indicate increased risk for diabetes (prediabetes).Fasting plasma glucose results greater than or equal to 126 mg/dL meet the criteria for diagnosis of diabetes. In the absence of unequivocal hyperglycemia, results should be confirmed by repeattesting. In a patient with classic symptoms of hyperglycemia or hyperglycemic crisis, random plasmaglucose results greater than or equal to 200 mg/dL meet the criteria for diagnosis of diabetes.Reference: Standards of Medical Care in Diabetes 2016, [place] Diabetes Association. Diabetes Care. 2016.39(Suppl 1).Performed By: #### 25485-9 ####[facility] LABCLIA [id number] [place] [id number] [place] OF AMERICAPhosphate [Mass/Vol]3.1 mg/dLNormal2.7-4.8CKettering Health [facility] Comment on above:Order Comment: Specimen Type: BLOOD SPECIMENOrdering Facility: External Submitter Address: , ,Performed By: #### 24246-5 ####[facility] LABCLIA [id number] [address] [address] [place] AMERICAPotassium [Moles/Vol]4.7 mmol/LNormal3.7-5.1CSouthview Medical Center on above:Order Comment: Specimen Type: BLOOD SPECIMENOrdering Facility: External Submitter Address: , ,Performed By: #### 87418-3 ####[facility] LABCLIA [id number] [address] [address] [place] OF AMERICASodium [Moles/Vol]141 mmol/UGwhhxt526-769QxsrkmsxzOhio [facility] on above:Order Comment: Specimen Type: BLOOD SPECIMENOrdering Facility: External Submitter Address: , , Performed By: #### 09708-0 ####[facility] LABCLIA [id number] [place] [address] [place] Urea nitrogen [Mass/Vol]24 mg/dLHigh7-21[facility] on above:Order Comment: Specimen Type: BLOOD SPECIMENOrdering Facility: External Submitter Address: , ,Performed By: #### 63252-8 ####[facility] LABCLIA [id number] [place] [address] [place] AMERICACNPNon 83-70-4954FOABGpevmsGvtloptbc Clinic ClevelandECG 12 Leadon 14-95-3900PSR revealed normal sinus rhythm with first-degree block, IVCD, abnormal ECG,[facility] Work Phone: UnMercy Health St. [facility] Work Phone: POCT rapid strep Aon 07-11-2024S. pyogenes Ag IA Ql (Unsp spec)NegativeNegativeProSelect Medical [facility] SystemProSumma HealthLarge Joint Arthro/Inj: L knee jointon 49-95-0630ZzxyoMary Childress MD 05/20/2024 10:30 AM Large Joint Arthro/Inj: L knee joint Informed Consent Consent Obtained: Written [place] Protocol A moment to CARE was completed. [...] and Plan of Care Visit completed when applicableSt. Elizabeth HospitalXR Knee - left Single viewon 74-72-1386RAATYLHMYY: No acute fracture or dislocation. Mild patellofemoral osteoarthritis. Implant Polisher: [facility]ITALHakan Transcribe Date/Time: May 20 2024 9:27A Dictated by : JENNIFER ZAZUETA MD This examination was interpreted and the report reviewed and electronically signed by: JENNIFER ZAZUETA MD on May 20 2024 9:27AM EST DIVISION OF RADIOLOGY* * *Final Report* * * DATE OF EXAM: May 20 2024 9:26AM LZX 5210 - XR KNEE SPECIFY 1V LT / PROCEDURE REASON: Left knee pain, unspecified chronicity * * * * Physician Interpretation * * * * EXAMINATION / TECHNIQUE: XR KNEE SPECIFY 1V LT HISTORY: pain lt knee Left knee pain, unspecified chronicity COMPARISON: 03/15/2024. RESULT: See Impression DIVISION OF RADIOLOGYProvider, [facility] [place] - 05/20/2024 * * *Final Report* * [...] acute fracture or dislocation. Mild patellofemoral osteoarthritis. Implant Polisher: [facility] Transcribe Date/Time: May 20 2024 9:27A Dictated by : JENNIFER ZAZUETA MD This examination was interpreted and the report reviewed and electronically signed by: JENNIFER ZAZUETA MD on May 20 2024 9:27AM EST [facility] Blanch[facility] Valley HospitalRadiology Study observation (narrative)[facility] Knee - left Single viewOrdered By: Ccf Provider on 37-67-1092Ycqpmyhhc ClinicECG 12-LEADon 22-23-8588WAC 12-LEADVentricular Rate 65 Atrial Rate 65 P-R Interval 186 QRS Duration 106 Q-T Interval 470 QTC Calculation(Bazett) 488 P [place] 80 R [place] 63 T [place] 78 QRS Count 11 Q Onset 220 P Onset 127 P Offset 180 T Offset 455 QTC Fredericia 482 Diagnosis Normal sinus rhythm Normal ECG When compared with ECG of 15-FEB-2024 16:45, No significant change was found Confirmed by Julius Eddy ([id number]) on 05/18/2024 11:22:41 AMNormalBristol-Myers Squibb Children's HospitalACT Coag (Bld)on 63-05-8338Ycsiphzzohngrc and review of laboratory resultsAbnoOhio Valley HospitalActivated clotting timeon 34-23-8392AFD Coag (Bld)178 kRplr47-[address] [facility]'S Medical CenterComment on above:Result Comment: Target ACT range will vary based on the patient population, clinical status, and surgical intervention occurring.Performed By: #### 3184-9 #### BELKIS Mooney ([id number]) [facility] ([facility]) [address] [place], [place] [address]CT WATCHMAN FULL CONTRASTon 39-93-2117TE WATCHMAN FULL CONTRASTInterpreted By: Franck Sanches and Amoah Joseph STUDY: CT WATCHMAN FULL CONTRAST; 04/07/2024 1:01 pm INDICATION: Signs/Symptoms:Pre Watchman sizing and thrombus detection. COMPARISON: None. ACCESSION NUMBER(S): [id number] ORDERING CLINICIAN: JUAN CHINO TECHNIQUE: Using multi-detector [...] Franck Sanches 04/07/2024 3:09 PM Dictation workstation: [id number] Samaritan HospitalLaboratory - Coagulationon 70-62-3529WIB Coag (Bld)178 [facility] HospitalComment on above:Target ACT range will vary based on the patient population, clinical status, and surgical intervention occurring. No Panel Informationon . No evidence of left atrial/left atrial appendage [...] Franck Sanches 04/07/2024 3:09 PM Dictation workstation: [id number] By: Franck Sanches and Amoah Joseph STUDY: CT WATCHMAN FULL CONTRAST; 04/07/2024 1:01 pm INDICATION: Signs/Symptoms:Pre Watchman sizing and thrombus detection. COMPARISON: None. ACCESSION NUMBER(S): [id number] ORDERING CLINICIAN: JUAN CHINO TECHNIQUE: Using multi-detector [...] lesions within included chest.Chronic degenerative changes noted. MMODALFranck Sanches MD PhD - 04/07/2024 Interpreted By: Franck Sanches, Jose Garcia STUDY: CT WATCHMAN FULL CONTRAST; 04/07/2024 1:01 pm INDICATION: Signs/Symptoms:Pre Watchman sizing and thrombus detection. COMPARISON: None. ACCESSION NUMBER(S): [id number] ORDERING CLINICIAN: JUAN CHINO TECHNIQUE: Using multi-detector [...] Franck Sanches 04/07/2024 3:09 PM Dictation workstation: [id number] [facility] Work Phone: Radiology Study observation (narrative)[facility] Work Phone: No Panel InformationOrdered By: Franck Snaches on 86-88-9665CotpipsoynMercy Health St. Vincent Medical Center Work Phone: basic metabolic 2000 panelon 85-48-8715Flajj gap [Moles/Vol]11 mmol/L8 - 15 mmol/LCleveland ClinicCalcium [Mass/Vol]9.3 mg/dL8.5 - 10.2 mg/dLCleveland ClinicChloride [Moles/Vol]105 mmol/L98 - 107 mmol/L [place] ClinicCO2 [Moles/Vol]27 mmol/L22 - 30 mmol/LCleveland ClinicCreatinine [Mass/Vol]1.14 mg/dLHigh0.58 - 0.96 mg/dLBlanchard Valley Health System Blanchard Valley HospitalGFR/1.73 sq M.predicted among non-blacks MDRD (S/P/Bld) [Vol rate/Area]53 mL/min/{1.73_m2} Low- PINFCleveland ClinicComment on above:Estimated Glomerular Filtration Rate (eGFR) is calculated using the 2020 CKD-EPI creatinine equation. This equation utilizes serum creatinine, sex, and age as parameters. The creatinine assay has traceable calibration to isotope dilution-mass spectrometry. Refer to KDIGO guidelines for clinical interpretation. In patients with unstable renal function, e.g. those with acute kidney injury, the eGFRmay not accurately reflect actual GFR.Glucose [Mass/Vol]89 mg/dL74 - 99 mg/dLBlanchard Valley Health System [facility] Comment on above:The [place] Diabetes Association (ADA) provides guidance for cutoff [...] Standards of Medical Care in Diabetes 2016, [place] Diabetes Association. Diabetes Care. 2016.39(Suppl 1). Interpretation and review of laboratory resultsAbnormalCleveland ClinicPotassium [Moles/Vol]4.5 mmol/L3.7 - 5.1 mmol/LCleveland ClinicSodium [Moles/Vol]143 mmol/L136 - 144 mmol/LCleveland ClinicUrea nitrogen [Mass/Vol]18 mg/dL7 - 21 mg/dLMercy Health St. [facility] Skeletal system.axial Views for bone density and vertebral fractureOrdered By: Ccf Provider on 54-00-0312IIPVRI T-SCORE-[address] [place] [address] Skeletal system.axial Views for bone density and vertebral fractureon 03-99-2141JJKULREAMF: THE LOWEST T-SCORE IS -1.8 IN THE [...] FOR MORE INFORMATION ABOUT DIAGNOSIS AND TREATMENT: [facility] for Osteoporosis and Metabolic Bone Disease:? www.ccf.org/arthritis/osteo National Osteoporosis Foundation:? www.nof.org International Society of Clinical Densitometry www.iscd.org Implant Polisher: [id number] Transcribe Date/Time: Mar 15 2024 2:24P Dictated by : CHIKIS GARCIA MD This examination was interpreted and the report reviewed and electronically signed by: CHIKIS GARCIA MD on Mar 15 2024 2:59PM [facility] DIVISION OF RADIOLOGY* * *Final Report* * * DATE OF EXAM: Mar 15 2024 2:20PM [facility] [place] - BD VFA WITH DXA - AXIAL SKELETON / PROCEDURE REASON: multiple diagnoses * * * * Physician Interpretation * * * * EXAMINATION: DXA BONE DENSITOMETRY BD VFA WITH DXA - AXIAL SKELETON PATIENT DEMOGRAPHICS: Age: 69 years, Gender: Female SCANNER INFORMATION: DXA Model: Berry Kitchen (S/N: [id number]) Date Scanned: 03/15/2024 2:20 PM CLINICAL HISTORY: DIAGNOSTIC Osteopenia, unspecified location S/P parathyroidectomy S/P parathyroidectomy 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 RISK FACTORS FOR [...] had a previous bone density in the [facility] or the previous bone density was performed on a different DXA machine (new, updated model or different location) within the [facility]. VERTEBRAL FRACTURE ASSESSMENT Indication for VFA: Physician ordered Levels visualized: T6-L5 Results: No fracture identified Presence of a single vertebral fracture increases subsequent global fracture risk, multiple fractures significantly increase fracture risk. TRABECULAR BONE ASSESSMENT TBS not performed: BMI outside recommended range for calculation of TBS. DIVISION OF RADIOLOGYProvider, [facility] [place] - 03/15/2024 * * *Final Report* * * DATE OF EXAM: Mar 15 2024 2:20PM [facility] [place] - BD VFA WITH DXA - AXIAL SKELETON / PROCEDURE REASON: multiple diagnoses * * * * Physician Interpretation * * * * EXAMINATION: DXA BONE DENSITOMETRY BD VFA WITH DXA - AXIAL SKELETON PATIENT DEMOGRAPHICS: Age: 69 years, Gender: Female SCANNER INFORMATION: DXA Model: A21 Qloo (S/N: [id number]) Date Scanned: 03/15/2024 2:20 PM CLINICAL HISTORY: DIAGNOSTIC Osteopenia, unspecified location S/P parathyroidectomy S/P parathyroidectomy 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 RISK FACTORS FOR [...] had a previous bone density in the [facility] or the previous bone density was performed on a different DXA machine (new, updated model or different location) within the [facility]. VERTEBRAL FRACTURE ASSESSMENT Indication for VFA: Physician [...] FOR MORE INFORMATION ABOUT DIAGNOSIS AND TREATMENT: [facility] for Osteoporosis and Metabolic Bone Disease:? www.ccf.org/arthritis/osteo National Osteoporosis Foundation:? www.nof.org International Society of Clinical Densitometry www.iscd.org Implant Polisher: [id number] Transcribe Date/Time: Mar 15 2024 2:24P Dictated by : CHIKIS GARCIA MD This examination was interpreted and the report reviewed and electronically signed by: CHIKIS GARCIA MD on Mar 15 2024 2:59PM EST [facility] Bl[facility] Valley HospitalNo Panel Informationon 48-81-2038Bfyghbhlu Study observation (narrative)[facility] HospitalXR Knee - left 4 Viewson 19-70-1047HESBVKJBOG: Severe osteoarthritis left knee and small joint effusion Implant Polisher: MILLER Transcribe Date/Time: Mar 15 2024 9:13P Dictated by : CHIKIS GARCIA MD This examination was interpreted and the report reviewed and electronically signed by: CHIKIS GARCIA MD on Mar 15 2024 9:13PM [facility] DIVISION OF RADIOLOGY* * *Final Report* * * DATE OF EXAM: Mar 15 2024 3:40PM AOX 5202 - XR KNEE 4V AP/PA BOTH+LAT/HELLEN LT / PROCEDURE REASON: multiple diagnoses * * * * Physician Interpretation * * * * X-RAYS LEFT KNEE HISTORY: pain. 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 COMPARISON: None RESULT: Osteoarthritis left knee, severe in the medial compartment. Small left knee joint effusion is present. No fracture or dislocation is identified. DIVISION OF RADIOLOGYProvider, [facility] [place] - 03/15/2024 * * *Final Report* * * DATE OF EXAM: Mar 15 2024 3:40PM AOX 5202 - XR KNEE 4V AP/PA BOTH+LAT/HELLEN LT / PROCEDURE REASON: multiple diagnoses * * * * Physician Interpretation * * * * X-RAYS LEFT KNEE HISTORY: pain. 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 COMPARISON: None RESULT: Osteoarthritis left knee, severe in the medial compartment. Small left knee joint effusion is present. No fracture or dislocation is identified. IMPRESSION IMPRESSION: Severe osteoarthritis left knee and small joint effusion Implant Polisher: [facility] Transcribe Date/Time: Mar 15 2024 9:13P Dictated by : CHIKIS GARCIA MD This examination was interpreted and the report reviewed and electronically signed by: CHIKIS GARCIA MD on Mar 15 2024 9:13PM EST [facility] HospitalXR Knee - left 4 ViewsOrdered By: Ccf Provider on 03-15-2024 [facility] Blanchard Valley HospitalECG 12-LEADon 10-62-0779DAP 12-LEADVentricular Rate 69 Atrial Rate 69 P-R Interval 180 QRS Duration 116 Q-T Interval 470 QTC Calculation(Bazett) 503 P [place] 73 R [place] 44 T [place] 72 QRS Count 12 Q Onset 220 P Onset 130 P Offset 184 T Offset 455 QTC Fredericia 492 Diagnosis Normal sinus rhythm Prolonged QT Abnormal ECG When compared with ECG of 16-NOV-2023 16:03, Sinus rhythm has replaced Wide QRS tachycardia Vent. rate has decreased BY 69 BPM Confirmed by Julius Eddy ([id number]) on 02/22/2024 8:57:23 AMNLake Region HospitalBasic metabolic 2000 panelon 31-81-6453Lhqcc gap [Moles/Vol]12 mmol/XQwbxhh28-45OslyscrmcxOhiohealth Nelsonville Health CenterComment on above: Performed By: #### 25401-1 #### PARVEZIBRENEE QUINN ([id number]) [facility] ([facility]) [address] [place] [address]26[address]Yewpnfy [Mass/Vol]9.6 mg/dLNormal8.6-10.3Ohio[facility] Health CenterComment on above:Performed By: #### 67397-2 #### PARVEZIBRENEE QUINN (91334) [facility] ([facility]) [address] [place] [address] 85515Bvmyhurn [Moles/Vol]105 mmol/KPrbomc20-655GsarkjrhhcMercy Health West HospitalComment on above:Performed By: #### 73463-1 #### PARVEZIBRENEE QUINN (77828) [facility] ([facility]) [address] [place] [address] 52539VG5 [Moles/Vol]29 mmol/HUdzrsc40-53IhkjhjclfgOhiohealth Nelsonville Health CenterComment on above:Performed By: #### 53482-5 #### PARVEZIBRENEE QUINN (05893) [facility] ([facility]) [address] [place] [address] 07785Zfpncikjni [Mass/Vol]0.99 mg/dLNormal0.50-1.05Ohio[facility] Health CenterComment on above:Performed By: #### 28961-3 #### DONAL QUINN (28613) [facility] ([facility]) [address] [place] [address] 25[address]Ephhgfarwv filtration rate/1.73 sq M.ttmxraxyl55 mL/min/1.73m*2 Normal>60UnMercy Health West HospitalComment on above:Result Comment: Calculations of estimated GFR are performed using the 2020 CKD-EPI Study Refit equation without the race variable for the IDMS-Traceable creatinine methods. https://jasn.asnjournals.org/content/early/ASN.1182167419Uswjenejh By: #### 39358-4 #### DONAL QUINN (56189) [facility] ([facility]) [address] [place] [address] 49136Alwvqra [Mass/Vol]90 mg/rGEvmnho86-43UbogjwycozMercy Health West HospitalComment on above:Performed By: #### 53489-0 #### DONAL QUINN (22129) [facility] ([facility]) [address] [place] [address] 41725Qbkyiyegg [Moles/Vol]4.5 mmol/LNormal3.5-5.3Ohio[facility] Nelsonville Health CenterComment on above:Performed By: #### 43297-3 #### PARVEZIBRENEE QUINN (66993) [facility] ([facility]) [address] [place] [address] 28597Qpnpyy [Moles/Vol]141 mmol/BHooxsx301-443EiuasigzfpMercy Health West HospitalComment on above:Performed By: #### 52460-4 #### DONAL QUINN (75468) [facility] ([facility]) [address] [place] [address] 43682Gscj nitrogen [Mass/Vol]24 mg/dLHigh6-23UnMercy Health West HospitalComment on above:Performed By: #### 67162-6 #### PARVEZIBRENEE QUINN (22057) [facility] LAB ([facility]) [address] [place] [address] 18942MFG panel Auto (Bld)on 75-09-8258Yevqgezsqhc distribution width (RBC) [Ratio]12.7 %Nbwkdq89.5-14.5[facility] Comment on above:Performed By: #### [id number] #### DONAL QUINN ([id number]) [facility] ([facility]) [address] [place] [address] 54629Wiiukwvkyd (Bld) [Volume fraction]43.9 %Zggqrw43.0-46.0 [facility] CenterComment on above:Performed By: #### [id number] #### DONAL QUINN ([id number]) [facility] ([facility]) [address] [place] [address] 25278Qnnrmzpbtk (Bld) [Mass/Vol]14.5 g/qGBnadfe27.0-16.0UnMercy Health West HospitalComment on above:Performed By: #### 92735-1 #### DONAL QUINN ([id number]) [facility] ([facility]) [address] [place] [address] 98817RLC (RBC) [Entitic mass]32.2 pxZaktkf07.0-34.0UnMercy Health West HospitalComment on above:Performed By: #### [id number] #### DONAL QUINN ([id number]) [facility] ([facility]) [address] [place] [address] 35702EKRO (RBC) [Mass/Vol]33.0 g/hASoagwd16.0-36.0UnMercy Health West HospitalComment on above:Performed By: #### 52568-2 #### DONAL QUINN ([id number]) [facility] ([facility]) [address] [place] [address] 26595ISK (RBC) [Entitic vol]97 gSSmiskh44-940JmgkyatoadMercy Health West HospitalComment on above:Performed By: #### 62301-2 #### DONAL QUINN ([id number]) [facility] ([facility]) [address] [place] [address] 17222Iohvowdws RBC/100 WBC (Bld) [Ratio]0.0 /100 WBCsNormal0.0-0.0 [facility] CenterComment on above:Performed By: #### 37889-2 #### PARVEZIBRENEE DIRK TRACY ([id number]) [facility] ([facility]C) [address] [place] [address] 59850Kwwahkjks (Bld) [#/Vol]258 x10*3/jVOulvlz947-282WqxbhitnfhOhiohealth Nelsonville Health CenterComment on above:Performed By: #### 57167-0 #### PARVEZIBRENEE CAVAZOS RIO DEMARCUS ([id number]) [facility] ([facility]) [address] [place] [address] 50328QIW (Bld) [#/Vol]4.51 x10*6/uLNormal4.00-5.20[facility] CenterComment on above:Performed By: #### 65619-6 #### PARVEZIBRENEE DIRK TRACY ([id number]) [facility] ([facility]) [address] [place] [address] 71041NYB (Bld) [#/Vol]6.9 x10*3/uLNormal4.4-11.3[facility] CenterComment on above:Performed By: #### 36442-0 #### DONAL DIRK TRACY ([id number]) [facility] ([facility]C) [address] [place] [address] 87147Frugtt dioxide, total [Moles/volume] in Serum or PlasmaOrdered By: Yuriy Conway on 92-67-2223NP7 [Moles/Vol]25.2 mmol/MUofulg51.0-31.0 [facility] CenterComment on above:Performed By: #### LYRICKI #### [facility] [address] [place] [address] USAChloride [Moles/volume] in Serum or PlasmaOrdered By: Yuriy Conway on 08-04-8071Okrcvmss [Moles/Vol]109 mmol/EPqwe02-583RevmvkztlSouthern Ohio Medical CenterComment on above:Performed By: #### LYTES #### [facility] [address] [place] [address] USAECG 12 lead ECGon 70-47-6764ZUQ 12 lead [facility]ASHT[facility] Main [address] [address] Electrocardiograph Report Signed Patient: Jesus Wolf MR#: [id number] : 1955 Acct:[id number] Age/Sex: 68 / F ADM Date: 11/26/23 Loc: PO Room: Type: [facility] Attending Dr: Yuriy Conway MD Ordering Provider: Yuriy Conway MD, [facility] Date of Service: 11/26/2307/10/1234 ECG/ECG 12 lead [...] When compared with ECG of 21-SEP-2023 12:09, ME interval has increased Nonspecific T wave abnormality now evident in Anterior leads Confirmed by ROLAND CHILDERS [facility] ([id number]) on 11/27/2023 4:52:15 PM Referred By: Yuriy Conway Electronically Signed By:GAETANO WATKINS MD [facility] Transcribed By: [facility] Signed By Tobin Watkins MD 11/27/[address] [place] [address] Physician GroupECG post procedureon 11-26-2023 ECG [facility]ASHT[facility] Main [place] [id number] Electrocardiograph Report Signed Patient: Jesus Wolf MR#: [id number] : 1955 Acct:[id number] Age/Sex: 68 / F ADM Date: 11/26/23 Loc: PO Room: Type: [facility] Attending Dr: Yuriy Conway MD Ordering Provider: Yuriy Conway MD, [facility] Date of Service: 11/26/23/ ECG/ECG post procedure: [...] BY 41 BPM Confirmed by ROLAND CHILDERS [facility] ([id number]) on 11/27/2023 4:52:18 PM Referred By: Yuriy Conway Electronically Signed By:GAETANO WATKINS MD [facility] Transcribed By: MUS Signed By Tobin Watkins MD 11/27/[address] [place] [address] Physician GroupPotassium [Moles/volume] in Serum or PlasmaOrdered By: Yuriy Conway on 96-61-2511Jxzmrqpaj [Moles/Vol]4.1 mmol/LNormal3.5-5.1FSelect Medical Cleveland Clinic Rehabilitation Hospital, AvonComment on above:Performed By: #### LYTES #### [place] [address] USASerum or plasma anion gap determinationOrdered By: Yuriy Conway on 86-25-4103Uydoc gap [Moles/Vol]11.9 mmol/LNormal6.0-15.0[facility] CenterComment on above:Result Comment: PERFORMED BY: [place] [address] PATHOLOGIST VISUAL SPECIALIST ERICK FORDE M.D.Performed By: #### LYTES #### [place] [address] USASodium [Moles/volume] in Serum or PlasmaOrdered By: Yuriy Conway on 56-93-8406Qocwmv [Moles/Vol]142 mmol/IMwypge467-044GdejaycjoSouthern Ohio Medical CenterComment on above:Performed By: #### LYTES #### [place] [id number] USAECG 12-LEADon 65-45-2733QIS 12-LEADVentricular Rate 138 Atrial Rate 68 QRS Duration 152 Q-T Interval 384 QTC Calculation(Bazett) 581 R [place] 99 T [place] 52 QRS Count 23 Q Onset 196 T Offset 388 QTC Fredericia 506 Diagnosis Wide QRS tachycardia Rightward axis Nonspecific intraventricular block Abnormal ECG When compared with ECG of 04-OCT-2019 12:23, Wide QRS tachycardia has replaced Sinus rhythm Vent. rate has increased BY 70 BPM Confirmed by Todd Sheffield ([id number]) on 11/25/2023 2:22:27 [facility] HospitalECG 12 Leadon 61-95-8885ONH revealed atrial flutter with variable AV conductionCPMercer County Community Hospital Work Phone: MR Biliary ducts and Pancreatic duct WO and W contrast Melly 49-34-9638Uyethuerm ClinicCollagen crosslinked C-telopeptide [Mass/Vol]on 10-13-2023 Telopeptide, Beta Cross Tbpqvz033 pg/mL171 - 970 pg/mLCleveland ClinicComprehensive metabolic 2000 panelon 70-14-0369Eybihsg [Mass/Vol]3.9 g/dL 3.9 - 4.9 g/dLYatahey ClinicALP [Catalytic activity/Vol]101 U/L34 - 123 U/L [facility] ClinicALT [Catalytic activity/Vol]24 U/L7 - 38 U/LCleveland [facility] Anion gap [Moles/Vol]12 mmol/L9 - 18 mmol/LCleveland ClinicAST [Catalytic activity/Vol]25 U/L13 - 35 U/LCleveland [facility] CenterBilirubin [Mass/Vol]0.4 mg/dL0.2 - 1.3 mg/dLYatahey ClinicCalcium [Mass/Vol]9.6 mg/dL8.5 - 10.2 mg/dLBlanchard Valley Health System Blanchard Valley HospitalChloride [Moles/Vol]107 mmol/LHigh97 - 105 mmol/LCleveland ClinicCO2 [Moles/Vol]24 mmol/L22 - 30 mmol/LCleveland [facility] CenterCreatinine [Mass/Vol]1.04 mg/dLHigh0.58 - 0.96 mg/dLBlanchard Valley Health System Blanchard Valley HospitalEstimated Glomerular Filtration Rate59 mL/min/1.73mLow>=60 mL/min/1.73mCleveland [facility] CenterGlucose [Mass/Vol]101 mg/dLHigh 74 - 99 mg/dLBlanchard Valley Health System Blanchard Valley HospitalPotassium [Moles/Vol]4.6 mmol/L3.7 - 5.1 mmol/L [facility] Valley HospitalProtein [Mass/Vol]6.2 g/dLLow6.3 - 8.0 g/dLBlanchard Valley Health System [facility] Sodium [Moles/Vol]143 mmol/L136 - 144 mmol/LCleveland [facility] CenterUrea nitrogen [Mass/Vol]29 mg/dLHigh7 - 21 mg/dLBlanchard Valley Health System Blanchard Valley HospitalVITAMIN D 25 HYDROXYon 38-21-769123774796-gvxeaghysdtvtr D3 [Mass/Vol]43.4 ng/mL31.0 - 80.0 ng/mLCmercy health st. vincent medical centerand ClinicECG 12 Leadon 26-16-4507CQB reveals atrial flutter with variable AV conductionCPMercer County Community Hospital Work Phone: COLONOSCOPY DIAGNOSTICon [phone] [facility] CenterC3 COMPLEMENT BLDon 15-79-1544Vmdkxfbstj C3 [Mass/Vol]179 mg/rANafw54 - 166 mg/dL [facility] Bl[facility] Valley HospitalC4 COMPLEMENT BLDon 09-17-1797Gjkcawzodp C4 [Mass/Vol]39 mg/dL13 - 46 mg/dLBlanchard Valley Health System Blanchard Valley HospitalCBC W Auto Differential panel (Bld)on 02-04-2023 Basophils (Bld) [#/Vol]0.03 10*3/uL<0.11 k/uLBlanchard Valley Health System Blanchard Valley HospitalBasophils/100 WBC (Bld)0.4 %[facility] Bl[facility] Valley HospitalDifferential cell count method Nom (Bld)AutoCleveland ClinicEosinophils (Bld) [#/Vol]0.26 10*3/uL<0.46 k/uLBlanchard Valley Health System [facility] Eosinophils/100 WBC (Bld)3.1 %[facility] Bl[facility] Valley HospitalErythrocyte distribution width (RBC) [Ratio]13.2 %11.5 - 15.0 %[facility] Bl[facility] Valley HospitalHematocrit (Bld) [Volume fraction]41.8 %36.0 - 46.0 %[facility] Valley HospitalHemoglobin (Bld) [Mass/Vol]13.5 g/dL 11.5 - 15.5 g/dLBlanchard Valley Health System Blanchard Valley HospitalImmature granulocytes (Bld) [#/Vol]<0.10 k/uL [facility] Memorial Hospitalture granulocytes/100 WBC (Bld)0.2 %[facility] Lymphocytes (Bld) [#/Vol]2.04 10*3/uL1.00 - 4.00 k/[facility] Lymphocytes/100 WBC (Bld)24.5 %[facility]beighH (RBC) [Entitic mass]31.3 pg 26.0 - 34.0 pgCMagruder Memorial HospitalMCHC (RBC) [Mass/Vol]32.3 g/dL30.5 - 36.0 g/dL [facility] GlenbeighV (RBC) [Entitic vol]97.0 fL80.0 - 100.0 fLCMagruder Memorial Hospital Monocytes (Bld) [#/Vol]0.92 10*3/uLHigh<0.87 k/[facility] HospitalMonocytes/100 WBC (Bld)11.0 %[facility] Bl[facility] Valley HospitalNeutrophils (Bld) [#/Vol]5.07 10*3/uL1.45 - 7.50 k/[facility] HospitalNeutrophils/100 WBC (Bld)60.8 %[facility] Valley HospitalNucleated RBC (Bld) [#/Vol]<0.01 k/[facility] HospitalNucleated RBC/100 WBC (Bld) [Ratio]0.0 /100 WBCBlanchard Valley Health System Blanchard Valley HospitalPlatelet mean volume (Bld) [Entitic vol]10.5 fL9.0 - 12.7 fLCMagruder Memorial HospitalPlatelets (Bld) [#/Vol]279 10*3/uL150 - 400 k/[facility] HospitalRBC (Bld) [#/Vol]4.31 10*6/uL3.90 - 5.20 m/[facility] HospitalWBC (Bld) [#/Vol]8.34 10*3/uL3.70 - 11.00 k/[facility] CREATINE KINASEon 09-62-9019QX [Catalytic activity/Vol]377 U/LHigh42 - 196 U/LCmercy health st. vincent medical centerand [facility] Comprehensive metabolic 2000 panelon 21-08-1940Bgjkklt [Mass/Vol]4.2 g/dL3.9 - 4.9 g/dLYatahey ClinicALP [Catalytic activity/Vol]116 U/L34 - 123 U/LCleveland ClinicALT [Catalytic activity/Vol]20 U/L7 - 38 U/LCleveland ClinicAnion gap [Moles/Vol]14 mmol/L9 - 18 mmol/LCleveland ClinicAST [Catalytic activity/Vol]30 U/L13 - 35 U/LCleveland ClinicBilirubin [Mass/Vol]0.6 mg/dL0.2 - 1.3 mg/dL [facility] ClinicCalcium [Mass/Vol]9.8 mg/dL8.5 - 10.2 mg/dLBlanchard Valley Health System [facility] Chloride [Moles/Vol]106 mmol/LHigh97 - 105 mmol/LCleveland ClinicCO2 [Moles/Vol] 20 mmol/LLow22 - 30 mmol/LCleveland ClinicCreatinine [Mass/Vol]1.14 mg/dLHigh 0.58 - 0.96 mg/dLBlanchard Valley Health System Blanchard Valley HospitalEstimated Glomerular Filtration Rate53 mL/min/1.73mLow>=60 mL/min/1.73mCleveland ClinicGlucose [Mass/Vol]82 mg/dL74 - 99 mg/dLBlanchard Valley Health System Blanchard Valley HospitalPotassium [Moles/Vol]5.0 mmol/L3.7 - 5.1 mmol/LCleveland ClinicProtein [Mass/Vol]6.8 g/dL6.3 - 8.0 g/dLTriHealthodium [Moles/Vol]140 mmol/L136 - 144 mmol/LCleveland [facility] CenterUrea nitrogen [Mass/Vol]24 mg/dLHigh7 - 21 mg/dLBlanchard Valley Health System Blanchard Valley HospitalPROTEIN CREATININE RATIOon 02-04-2023 Protein/Creatinine (U) [Mass ratio]0.08 mg/mg<0.15 mg/mgBlanchard Valley Health System [facility] Protein/Creatinine (U) [Mass ratio]on 81-70-9773Gwgqvhabtj (U) [Mass/Vol]133.7 mg/dL20.0 - 300.0 mg/dLBlanchard Valley Health System Blanchard Valley HospitalProtein (U) [Mass/Vol]11 mg/dL0 - 20 mg/dLBlanchard Valley Health System Blanchard Valley HospitalRHEUMATOID FACTOR BLon 55-47-9805Qflrkfhrpz factor Qn<16 IU/mLCleveland ClinicUrinalysis complete panel (U)on 70-36-4299Eiinjwkr LM.HPF (Urine sed) [#/Area]RareAbnormalNone Seen /HPFCleWright-Patterson Medical CenterBilirubin Ql (U) NegativeNegativeClemarymount hospital ClinicClarity (Unsp spec)ClearClearCleveland Clinic Color (U)YellowYellowCleWright-Patterson Medical CenterEpithelial cells LM.HPF (Urine sed) [#/Area]FewCleWright-Patterson Medical CenterGlucose Test strip (U) [Mass/Vol]NegativeTrace, NegativeBlanchard Valley Health System Blanchard Valley HospitalHemoglobin Ql (U)NegativeNegative, TraceBlanchard Valley Health System [facility] Hyaline casts (Urine sed) [#/Area]/[LPF]Abnormal0 /LPFCleveland ClinicKetones Ql (U)NegativeTrace, NegativeBlanchard Valley Health System Bl[facility]ard Valley HospitalLeukocyte esterase Test strip Ql (U) 250 Bailey/uLAbnormalNegative, 25 Bailey/uLCleWright-Patterson Medical CenterNitrite Ql (U)1+Abnormal NegativeYatahey ClinicpH (U)5.5 [pH]5.0 - 8.0[facility] Bl[facility] Valley HospitalProtein (U) [Mass/Vol]1+AbnormalTrace, NegativeBlanchard Valley Health System Blanchard Valley HospitalRBC LM.HPF (Urine sed) [#/Area]0-3 /HPF0-3 /HPFTriHealthpecific gravity (U) [Rel density]1.018 1.005 - 1.030[facility] Valley HospitalUrobilinogen Ql (U)NegativeNegativeBlanchard Valley Health System [facility] WBC LM.HPF (Urine sed) [#/Area]/[HPF]Abnormal0-5 /HPFBlanchard Valley Health System Blanchard Valley HospitalCULTURE BLOODon 67-85-2836Toibsqeobbq examination of blood, cultureCulture Observations: positive aerobic and anaerobic bottles 09/29/22 [...] 2 S P Rifampicin 1 S P Trimethoprim/Sulfamethoxazole 20 S PNormalThe Memorial Health SystemComment on above: Performed By: #### LIPA, MG, CMP #### [facility] [address] [place] [address] Dr. Yilan ChangLACTATE/LACTIC ACIDon 71-37-1868Cwtqhze [Moles/Vol]1.0 mmol/L Normal0.4-1.9The [facility] Health SystemComment on above:Performed By: #### LIPSusan, MG, CMP #### [facility] [address] [place] [address] [address] Dank Schwab CULTURE ID PANELon 09-28-2022. baumanniiNot detectedNormal NOT DETECTEDThe Memorial Health SystemCommymichigan medical center gladwin on above:Performed By: #### LIPA, MG, CMP #### [facility] [address] [place] [address] [address] Dank Mcclure fragilisNot detectedNormalNOT DETECTEDThe [facility] Health SystemComment on above:Performed By: #### LIPA, MG, CMP #### [facility] [address] [place] [address] Dr. Dank Flood CONTROLSPASSUniversity Hospitals Elyria Medical CenterComment on above: Performed By: #### LIPA, MG, CMP #### [facility] [address] [place] [address] [address] Dank FloodBTJOSE CULTURE BOTTLE [facility] Soin Medical CenterComment on above:Performed By: #### LIPA, MG, CMP #### [facility] [address] [place] [address] Dr. Dank FloodFxynkHYCIHY3BVJOUGEZMIUKS RESISTANCE GENESWayne HealthCare Main Campus Comment on above:Performed By: #### LIPA, MG, CMP #### [facility] [address] [place] [address] Dr. Dank Hong2SEE ACMC Healthcare SystemComment on above: Result Comment: Note: Antimicrobial resitance can occur via multiple mechanisms. A Not Detected result for the FilmArray antomicrobial resistance gene assays does not indicate antimicrobial susceptibility. Subculturing is required for species identification and susceptibility testing of isolates.Performed By: #### LIPA, MG, CMP #### [facility] [address] [place] [address] Dr. Dank HongHyoqnMNUHUU3SfvtenbqLodirgQrjCleveland Clinic Children's Hospital for RehabilitationComment on above: Performed By: #### LIPA, MG, CMP #### [facility] [address] [place] [address] [address] Dank FloodYknznRNKUHM5HippwgaqWgxgqyGjm [facility]vue HospitalComment on above: Performed By: #### LIPA, MG, CMP #### [facility] [address] [place] [address] [address] Dank SeamanIqtrrASYCEM0GCCXXEdtldbOkiWayne HealthCare Main CampusComment on above:Performed By: #### LIPA, MG, CMP #### [facility] [address] [place] [address] [address] Dank Echeverria Set:Set 1NormalThe Memorial Health SystemComment on above: Performed By: #### LIPA, MG, CMP #### [facility] [address] [place] [address] [address] Dank Echeverria:AerobicWayne HealthCare Main CampusComment on above: Performed By: #### LIPA, MG, CMP #### [facility] [address] [place] [address] [address] Dank Flowers. neoformans/gattiiNot detectedNormalNOT DETECTEDThe [facility] Ohioment on above:Performed By: #### LIPA, MG, CMP #### [facility] [address] [place] [address] [address] Dank Murray albicansNot detectedNormalNOT DETECTEDThe [facility] Health SystemComment on above:Performed By: #### LIPA, MG, CMP #### [facility] [address] [place] [address] [address] Dank Murray aurisNot detectedNormalNOT DETECTEDThe [facility] on above:Performed By: #### LIPA, MG, CMP #### [facility] [address] [place] [address] [address] Dank Murray glabrataNot detectedNormalNOT DETECTEDThe [facility] Health SystemComment on above:Performed By: #### LIPA, MG, CMP #### [facility] [address] [place] [address] [address] Dank Murray KruseiNot detectedNormalNOT DETECTEDAcmc Healthcare System Glenbeigh Comment on above:Performed By: #### LIPA, MG, CMP #### [facility] [address] [place] [address] [address] Dank Murray ParapsilosisNot detectedNormalNOT DETECTEDThe [facility] Health SystemComment on above:Performed By: #### LIPA, MG, CMP #### [facility] [address] [place] [address] [address] Dank Murray TropicalisNot detectedNormalNOT DETECTEDThe [facility] Health SystemComment on above:Performed By: #### LIPA, MG, CMP #### [facility] [address] [place] [address] [address] Dank LovelaceCTX-M Resistant GeneNot ApplicableNormalNOT DETECTEDThe [facility] Health SystemComment on above:Performed By: #### LIPA, MG, CMP #### [facility] [address] [place] [address] [address] Dank Mead. Cloacae complexNot detectedNormalNOT DETECTEDThe Memorial Health SystemCommymichigan medical center gladwin on above:Performed By: #### LIPA, MG, CMP #### [facility] [address] [place] [address] [address] Dank Mead. faecalisNot detectedNormalNOT DETECTEDAcmc Healthcare System Glenbeigh Comment on above:Performed By: #### LIPA, MG, CMP #### [facility] [address] [place] [address] [address] Dank Garcia faeciumNot detectedNormalNOT DETECTEDThe [facility] Comment on above:Performed By: #### LIPA, MG, CMP #### [facility] [address] [place] [address] [address] Dank MeadnterobacteriaceaeNot detectedNormalNOT DETECTEDThe [facility] Health SystemComment on above:Performed By: #### LIPA, MG, CMP #### [facility] [address] [place] [address] [address] Dank Cobbcherichia coliNot detectedNormalNOT DETECTEDThe [facility] Health SystemComment on above:Performed By: #### LIPA, MG, CMP #### [facility] [address] [place] [address] [address] Dank Maguire. influenzaeNot detectedNormalNOT DETECTEDThe [facility] Comment on above:Performed By: #### LIPA, MG, CMP #### [facility] [address] [place] [address] [address] Dank Barton Resistant GeneNot ApplicableNormalNOT DETECTEDThe [facility] Health SystemComment on above:Performed By: #### LIPA, MG, CMP #### [facility] [address] [place] [address] [address] Dank Mahajan. oxytocaNot detectedNormalNOT DETECTEDThe [facility] Comment on above:Performed By: #### LIPA, MG, CMP #### [facility] [address] [place] [address] [address] Dank Cristina pneumoniaeNot detectedNormalNOT DETECTEDThe [facility] Comment on above:Performed By: #### LIPA, MG, CMP #### [facility] [address] [place] [address] [address] Dank Sterlingella aerogenesNot detectedNormalNOT DETECTEDThe [facility] Health SystemCommymichigan medical center gladwin on above:Performed By: #### LIPA, MG, CMP #### [facility] [address] [place] [address] [address] Dank LovelaceKPC Resistant GeneNot ApplicableNormalNOT DETECTEDThe [facility] Health SystemComment on above:Performed By: #### LIPA, MG, CMP #### [facility] [address] [place] [address] [address] Dank Andres. monocytogenesNot detectedNormalNOT DETECTEDThe [facility] Health SystemCommymichigan medical center gladwin on above:Performed By: #### LIPA, MG, CMP #### [facility] [address] [place] [address] [address] Dank LovelaceMcr-1 Resistant GeneNot ApplicableNormalNOT DETECTEDThe [facility] Health SystemComment on above:Performed By: #### LIPA, MG, CMP #### [facility] [address] [place] [address] [address] Dank Dominguez/CDetectedAbnormalNOT DETECTEDThe [facility] Health SystemComment on above:Performed By: #### LIPA, MG, CMP #### [facility] [address] [place] [address] [address] Dank Dominguez/C MREJNot ApplicableNormalNOT DETECTEDAcmc Healthcare System Glenbe[facility] Comment on above:Performed By: #### LIPA, MG, CMP #### [facility] [address] [place] [address] [address] Dank Sexton. meningitidisNot detectedNormalNOT DETECTEDThe [facility] Health SystemComment on above:Performed By: #### LIPA, MG, CMP #### [facility] [address] [place] [address] [address] Dank Rose Resistant GeneNot ApplicableNormalNOT DETECTEDThe [facility] Health SystemCommymichigan medical center gladwin on above:Performed By: #### LIPA, MG, CMP #### [facility] [address] [place] [address] Dr. Dank CastanedaAnduvCib-68-jbwrKbq ApplicableNormalNOT DETECTEDAcmc Healthcare System Glen[facility] Comment on above:Performed By: #### LIPA, MG, CMP #### [facility] [address] [place] [address] [address] Dank LovelaceProteusNot detectedNormalNOT DETECTEDThe [facility] Health SystemCommymichigan medical center gladwin on above:Performed By: #### LIPA, MG, CMP #### [facility] [address] [place] [address] Dr. Dank Boyd. aeruginosaNot detectedNormalNOT DETECTEDThe [facility] Health SystemComment on above:Performed By: #### LIPA, MG, CMP #### [facility] [address] [place] [address] Dr. Dank Carcamo. maltophiliaNot detectedNormalNOT DETECTEDAcmc Healthcare System [facility] Comment on above:Performed By: #### LIPA, MG, CMP #### [facility] [address] [place] [address] [address] Dank Kennedyatia marcescensNot detectedNormalNOT DETECTEDThe [facility] on above:Performed By: #### LIPA, MG, CMP #### [facility] [address] [place] [address] [address] Dank Alford:vinicio a/cNormalThe [facility] Health SystemComment on above:Performed By: #### LIPA, MG, CMP #### [facility] [address] [place] [address] [address] Dank Coffey. aureusNot detectedNormalNOT DETECTEDThe [facility] on above:Performed By: #### LIPA, MG, CMP #### [facility] [address] [place] [address] [address] Dank Coffey. epidermidisDetectedCritically abnormalNOT DETECTEDThe [facility] on above:Performed By: #### LIPA, MG, CMP #### [facility] [address] [place] [address] [address] Dank Coffey. lugdunensisNot detectedNormalNOT DETECTEDThe [facility] on above:Performed By: #### LIPA, MG, CMP #### [facility] [address] [place] [address] [address] Dank AnayaococcusDetectedCritically abnormalNOT DETECTEDThe [facility] on above:Performed By: #### LIPA, MG, CMP #### [facility] [address] [place] [address] [address] Dank Knight. agalactiaeNot detectedNormalNOT DETECTEDThe [facility] on above:Performed By: #### LIPA, MG, CMP #### [facility] [address] [address] [address] Dank Knight. pneumoniaeNot detectedNormalNOT DETECTEDThe [facility] on above:Performed By: #### LIPA, MG, CMP #### [facility] [address] [address] [address] Dank Knight. pyogenesNot detectedNormalNOT DETECTEDThe [facility] on above:Performed By: #### LIPA, MG, CMP #### [facility] [address] [address] [address] Dank ClaytonreptococcusNot detectedNormalNOT DETECTEDThe [facility] Comment on above:Performed By: #### LIPA, MG, CMP #### [facility] [address] [address] [address] Dank Guerra/Hakan Resist. GeneNot ApplicableNormalNOT DETECTEDThe [facility] SystemComment on above:Performed By: #### LIPA, MG, CMP #### [facility] [address] [address] [address] Dank Perez Resistant GeneNot ApplicableNormalNOT DETECTEDThe [facility] Health SystemComment on above:Performed By: #### LIPA, MG, CMP #### [facility] [address] [place] [address] Dr. Dank Orellana 37-31-4265Nnrepevvtoz peptide B (Bld) [Mass/Vol]282.0 pg/mL Normal<=900.0The [facility] SystemComment on above:Performed By: #### CMP, LIPA, TSH, BNP, CMADM #### [facility] [address] [address] [address] Dank Perez DENIS ADMITon [id number] [Catalytic activity/Vol]254 U/L Critically hpiq35-215Wez Memorial [facility] SystemComment on above:Performed By: #### CMP, LIPA, TSH, BNP, CMADM #### [facility] [address] [address] [address] Dank Yanez.MB [Mass/Vol]2.31 ng/mLNormal<=3.60[facility] Comment on above:Performed By: #### CMP, LIPA, TSH, BNP, CMADM #### [facility] [address] [address] [address] Dank Jaramillo10.2 pg/mLNormal4.0-51.3The [facility] SystemComment on above:Result Comment: CUT-OFF POINTS HAVE BEEN ESTABLISHED BASED ON THE FOURTH UNIVERSAL DEFINITIONS OF MYOCARDIAL INFARCTION. THE UPPER REFERENCE LIMIT (URL) OF TROPONIN, DEFINED THE 99TH PERCENTILE OF cTnI DISTRIBUTION IN A REFERENCE POPULATION, HAS BEEN CONFIRMED THE DECISION THRESHOLD FOR RI DIAGNOSIS.Performed By: #### CMP, LIPA, TSH, BNP, CMADM #### [facility] [address] [address] [address] Dank SalasO454 ng/mLCritically high9-82[facility] Glen[facility]ighComment on above:Performed By: #### CMP, LIPA, TSH, BNP, CMADM #### [facility] [address] [address] [address] Dank Garcia AUTO DIFFon [id number] #0.0 103/ulNormal0.0-0.1The [facility] Health SystemComment on above:Performed By: #### LIPA, MG, CMP #### [facility] [address] [place] [address] Dr. Dank LovelaceBasophils/100 WBC (Bld)0.2 %Normal0.2-2.0[facility] Comment on above:Performed By: #### LIPA, MG, CMP #### [facility] [address] [place] [address] Dr. Dank Ferro #0.1 103/ulNormal0.0-0.7The [facility] SystemComment on above: Performed By: #### LIPA, MG, CMP #### [facility] [address] [place] [address] Dr. Dank Meadosinophils/100 WBC (Bld)0.5 %Critically low0.9-7.0The [facility] SystemComment on above:Performed By: #### LIPA, MG, CMP #### [facility] [address] [place] [address] Dr. Dank Meadrythrocyte distribution width (RBC) [Ratio]13.2 %Nsfrpc64.0-15.0 [facility] GlenbeighComment on above:Performed By: #### LIPA, MG, CMP #### [facility] [address] [place] [address] Dr. Dank LovelaceHematocrit (Bld) [Volume fraction]41.5 %Ldpmdn13.0-48.0The [facility] SystemComment on above:Performed By: #### LIPA, MG, CMP #### [facility] [address] [place] [address] Dr. Dank LovelaceHemoglobin (Bld) [Mass/Vol]14.1 g/hPCvvtqp89.0-16.0The [facility] SystemComment on above:Performed By: #### LIPA, MG, CMP #### [facility] [address] [place] [address] Dr. Dank Gallegos #0.02 10e3/ulNormal0.00-0.03The [facility] SystemComment on above:Performed By: #### LIPA, MG, CMP #### [facility] [address] [place] [address] Dr. Dank Gallegos %0.2 %Normal0.0-0.5The [facility] SystemComment on above: Performed By: #### LIPA, MG, CMP #### [facility] [address] [place] [address] Dr. Dank Mitchell #0.7 103/ulCritically low1.2-3.8The [facility] Comment on above:Performed By: #### LIPA, MG, CMP #### [facility] [address] [place] [address] Dr. Dank Fordhocytes/100 WBC (Bld)7.3 %Critically low20.5-60.0The [facility] SystemComment on above:Performed By: #### LIPA, MG, CMP #### [facility] [address] [place] [address] Dr. Dank CasonUAL DIFF REQNONormalThe [facility] Health SystemComment on above: Performed By: #### LIPA, MG, CMP #### [facility] [address] [place] [address] Dr. Dank Hollins (RBC) [Entitic mass]31.5 cqIsfvaw12.7-34.0The [facility] SystemComment on above:Performed By: #### LIPA, MG, CMP #### [facility] [address] [place] [address] Dr. Dank Crow (RBC) [Mass/Vol]34.0 g/kLUpvpet23.9-35.2The [facility] SystemComment on above:Performed By: #### LIPA, MG, CMP #### [facility] [address] [place] [address] Dr. Dank Crow (RBC) [Entitic vol]92.6 sLUdibmq06.0-99.0The [facility] SystemComment on above:Performed By: #### LIPA, MG, CMP #### [facility] [address] [place] [address] Dr. Dank Tavarez #0.7 103/ulNormal0.3-0.8The [facility] SystemComment on above:Performed By: #### LIPA, MG, CMP #### [facility] [address] [place] [address] Dr. Dank Guamanocytes/100 WBC (Bld)7.1 %Normal1.7-12.0The [facility] Comment on above:Performed By: #### LIPA, MG, CMP #### [facility] [address] [place] [address] Dr. Dank Pinon #8.5 103/ulCritically high1.4-6.5The [facility] Comment on above:Performed By: #### LIPA, MG, CMP #### [facility] [address] [place] [address] Dr. Dank Andersenophils/100 WBC (Bld)84.7 %Critically high43.0-75.0The [facility] SystemComment on above:Performed By: #### LIPA, MG, CMP #### [facility] [address] [place] [address] Dr. Dank Arias mean volume (Bld) [Entitic vol]10.3 fLNormal9.5-13.5The [facility] SystemComment on above:Performed By: #### LIPA, MG, CMP #### [facility] [address] [place], [place] [address] [address]. Dank LovelacePLT247 103/iuLfbzqy994-417Jdx [facility] on above: Performed By: #### LIPA, MG, CMP #### [facility] [address] [place], [place] [address] Dr[address] Dank LovelaceRBC4.48 106/ulNormal4.20-5.40The [facility] SystemComment on above:Performed By: #### LIPA, MG, CMP #### [facility] [address] [place], [place] [address] Dr[address] Dank LovelaceWBC10.1 103/ulNormal4.0-11.0[facility] on above:Performed By: #### LIPA, MG, CMP #### [facility] [address] [place] [address] Dr. Dank LovelaceCT ABD/PELVIS WO CONon [id number] ABD/PELVIS WO CONEXAM: CT SCAN OF THE ABDOMEN AND PELVIS WITHOUT IV CONTRAST DATE [...] ovarian cyst in a postmenopausal female. Outpatient APPLICATIONS SYSTEM ANALYST consultation may help better delineate. 5. Nonobstructing left-sided nephrocalcinosis. 6. Otherwise unremarkable noncontrast CT of the abdomen and pelvis for acute pathology. Electronically authenticated by: JENA WEN Date: 2022-09-28 21:24[facility] CampusCULTURE BLOODon [id number] examination of blood, cultureCulture Observations: NO GROWTH AT 5 DAYS.NormalAcmc Healthcare System GlenbeighComment on above:Performed By: #### LIPSusan, MG, CMP #### [facility] [address] [place] [address] Dr. Dank Keith-19 PCR (CVDTB)on 70-03-8637OPJK-CoV-2 (COVID-19) RNA RAVIN+probe Ql (Unsp spec)Not detectedNormalNOT DETECTEDThe [facility] Comment on above:Result Comment: When diagnostic testing is negative, the [...] for this test is supported by the Medical Claims Processor of Health and Human Service's declaration that circumstances exist to justify the emergency use of in vitro diagnostics for the detection and/or diagnosis of the virus that causes COVID-19. This EUA will remain in effect for the duration of the COVID-19 declaration justifying emergency of IVDs, unless it is terminated or revoked by the FDA (after which the test may no longer be used).Performed By: #### LIPA, MG, CMP #### [facility] [address] [place] [address] Dr. Dank Renner URINE PROFILEon 45-21-4128Lvdyqqrhh Ql (U)SMALLAbnormal NEGATIVEAcmc Healthcare System GlenbeighComment on above:Performed By: #### LIPA, MG, CMP #### [facility] [address] [place] [address] Dr. Dank LovelaceClarity (U)CLEARNormalCLEARAcmc Healthcare System GlenbeighComment on above: Performed By: #### LIPA, MG, CMP #### [facility] [address] [place] [address] Dr. Dank Estrella (U)DK. YELLOWNormalYELLOWAcmc Healthcare System GlenbeighComment on above:Performed By: #### LIPA, MG, CMP #### [facility] [address] [place] [address] Dr. Dank Bravo micrscopic examination will be performed if indicated. NormalAcmc Healthcare System GlenbeighComment on above:Performed By: #### LIPA, MG, CMP #### [facility] [address] [place] [address] Dr. Dank LovelaceGlucose Ql (U)NegativeNormalNEGATIVEAcmc Healthcare System GlenbeighComment on above:Performed By: #### LIPA, MG, CMP #### [facility] [address] [place] [address] Dr. Dank LovelaceHemoglobin Ql (U)NegativeNormalNEGATIVEAcmc [facility] Comment on above:Performed By: #### LIPA, MG, CMP #### [facility] [address] [place] [address] Dr. Dank LovelaceKetones Ql (U)NegativeNormalNEGATIVEAcmc Healthcare System GlenbeighComment on above:Performed By: #### LIPA, MG, CMP #### [facility] [address] [address] [address] Dank LovelaceLEUKOCYTESNegativeNormalNEGATIVEThe [facility] Health SystemComment on above:Performed By: #### LIPA, MG, CMP #### [facility] [address] [address] [address] Dank LovelaceNitrite Ql (U)NegativeNormalNEGATIVEThe [facility] Health SystemComment on above:Performed By: #### LIPA, MG, CMP #### [facility] [address] [address] [address] Dank LovelacepH (U)5.5 [pH]Normal5-9The [facility] Health SystemComment on above: Performed By: #### LIPA, MG, CMP #### [facility] [address] [place] [address] Dr. Dank LovelaceSPEC GRAVITY1.733Edcjoj3.005-<=1.025The [facility] Health SystemComment on above:Performed By: #### LIPA, MG, CMP #### [facility] [address] [place] [address] Dr. Dank Mora PROTEINTRACENormalNEGATIVE/ TRACEThe [facility] SystemComment on above:Performed By: #### LIPA, MG, CMP #### [facility] [address] [place] [address] Dr. Dank Bautista MICRO INDNOT INDICATEDNormalThe [facility] Health SystemComment on above:Performed By: #### LIPA, MG, CMP #### [facility] [address] [place] [address] Dr. Dank Gordilloinogen Qn (U)0.2 {Simon'U}/dLNormal0.2 - 1.0The [facility] Health SystemCommymichigan medical center gladwin on above:Performed By: #### LIPA, MG, CMP #### [facility] [address] [place] [address] Dr. Dank Sharif PANEL (PCR)on 98-48-9165Wcfpmohdco F 40/41Not detectedNormal NOT DETECTEDThe [facility] SystemComment on above:Performed By: #### GIPANEL #### [facility] [address] [address] [address] Dank LovelaceAstrovirusNot detectedNormalNOT DETECTEDThe [facility] Comment on above:Performed By: #### GIPANEL #### [facility] [address] [address] [address] Dank Flowers. Diff toxin A/BDetectedCritically abnormalNOT DETECTEDThe [facility] SystemComment on above:Performed By: #### GIPANEL #### [facility] [address] [address] [address] Dank KohlipylobacterNot detectedNormalNOT DETECTEDThe [facility] Comment on above:Performed By: #### GIPANEL #### [facility] [address] [address] [address] Dank LovelaceCryptosporidiumNot detectedNormalNOT DETECTEDThe [facility] SystemComment on above:Performed By: #### GIPANEL #### [facility] [address] [address] [address] Dank Bradford. CayetanensisNot detectedNormalNOT DETECTEDThe [facility] SystemCommymichigan medical center [facility] on above:Performed By: #### GIPANEL #### [facility] [address] [address] [address] Dank Garcia Coli B690Bhw ApplicableNormalNot ApplicableThe [facility] Health SystemComment on above:Performed By: #### GIPANEL #### [facility] [address] [address] [address] Dank Garcia histolyticaNot detectedNormalNOT DETECTEDThe [facility] Comment on above:Performed By: #### GIPANEL #### [facility] [address] [address] [address] Dank MeadAECNot detectedNormalNOT DETECTEDThe [facility] SystemComment on above:Performed By: #### GIPANEL #### [facility] [address] [address] [address] Dank MeadIECNot detectedNormalNOT DETECTEDThe [facility] SystemComment on above:Performed By: #### GIPANEL #### [facility] [address] [address] [address] Dank MeadPECNot detectedNormalNOT DETECTEDThe [facility] SystemCommymichigan medical center [facility] on above:Performed By: #### ADELEANEL #### [facility] [address] [address] [address] Dank MeadTECNot detectedNormalNOT DETECTEDThe [facility] SystemComment on above:Performed By: #### ADELEANEL #### [facility] [address] [address] [address] Dank Ann LambliaNot detectedNormalNOT DETECTEDThe [facility] Comment on above:Performed By: #### ADELEANEL #### [facility] [address] [address] [address] Dank Astorga CONTROLSSumma HealthCommymichigan medical center glad[facility] on above:Performed By: #### CAROLINAL #### [facility] [address] [address] [address] D[address]o [facility] HEADERGI PANEL [facility] Comment on above:Performed By: #### ADELEANEL #### [facility] [address] [address] [address] Dank Jolly ECOLIGI PANEL DIARRHEAGENIC E.COLI / SHIGELLAWayne HealthCare Main CampusCommymichigan medical center [facility] on above:Performed By: #### ADELEANEL #### [facility] [address] [address] [address] Dank Jolly INFOProMedica Bay Park HospitalCommymichigan medical center [facility] on above: Result Comment: EAEC- Enteroaggregative E. Coli EPEC- Enteropathogenic E. Coli ETEC- Enterotoxigenic E. Coli lt/st STEC- Shigella-like toxin-producing E. Coli stx1/stx2 EIEC- Shigella/Enteroinvasive E. ColiPerformed By: #### ADELEANEL #### [facility] [address] [address] [address] Dank Jolly PARASITESGI PANEL PARASITESWayne HealthCare Main Campus Comment on above:Performed By: #### GIPANEL #### [facility] [address] [address] [address] Dank SharifPNLHD VIRUSGI PANEL VIRUSESWayne HealthCare Main CampusComment on above:Performed By: #### GIPANEL #### [facility] [address] [address] [address] Dank Padillarovirus GI/GIIDetectedAbnormalNOT DETECTEDThe [facility] Comment on above:Performed By: #### GIPANEL #### [facility] [address] [address] [address] Dank Carr ShigelloidesNot detectedNormalNOT DETECTEDThe [facility] SystemComment on above:Performed By: #### ADELEANEL #### [facility] [address] [address] [address] Dank LovelaceRotavirus ANot detectedNormalNOT DETECTEDAcmc Healthcare System [facility] Comment on above:Performed By: #### ADELEANEL #### [facility] [address] [address] [address] Dank LovelaceSapovirusNot detectedNormalNOT DETECTEDAcmc Healthcare System [facility] Comment on above:Performed By: #### ADELEANEL #### [facility] [address] [address] [address] Dank LovelaceSTECNot detectedNormalNOT DETECTEDThe [facility] SystemComment on above:Performed By: #### ADELEANEL #### [facility] [address] [address] [address] Dank JonesbrioNot detectedNormalNOT DETECTEDThe [facility] SystemComment on above:Performed By: #### ADELEANEL #### [facility] [address] [address] [address] Dank Limaio CholeraNot detectedNormalNOT DETECTEDAcmc Healthcare System [facility] Comment on above:Performed By: #### GIPANEL #### [facility] [address] [address] [address] Dank Sauceda. EnterocoliticaNot detectedNormalNOT DETECTEDThe [facility] SystemComment on above:Performed By: #### GIPANEL #### [facility] [address] [address] [address] Dank LovelaceSalmonellaNot detectedNormalNOT DETECTEDThe [facility] Comment on above:Performed By: #### GIPANEL #### [facility] [address] [address] [address] Dank LovelacePerformed By: #### LIPA, MG, CMP #### [facility] [address] [place] [address] Dr. Dank Garces A AND B AGon [id number] A AGNegativeNormal NEGATIVE SEE COMMENTThe [facility] Health SystemComment on above:Performed By: #### LIPA, MG, CMP #### [facility] [address] [place] [address] Dr. Dank Mcclendon AGNegativeNormalNEGATIVE SEE COMMENTThe [facility] Health SystemComment on above:Performed By: #### LIPA, MG, CMP #### [facility] [address] [place] [address] Dr. Dank LovelaceLACTATE/LACTIC ACIDon 83-26-4426Blzfsnl [Moles/Vol]2.2 mmol/L Critically high0.4-1.9The [facility] Health SystemComment on above:Performed By: #### LIPA, MG, CMP #### [facility] [address] [place] [address] Dr. Dank LovelaceLIPASEon 93-62-5600Efoxpb [Catalytic activity/Vol]36.0 U/L Critically low73.0-393.0The [facility] Health SystemComment on above:Performed By: #### CMP, LIPA, TSH, BNP, CMADM #### [facility] [address] [place] [address] Dr. Dank LovelacePROSaad 14(COMP METB)on 28-84-6153Zcsxaxf [Mass/Vol]3.7 g/dLNormal 3.4-5.0The [facility] SystemComment on above:Performed By: #### CMP, LIPA, TSH, BNP, CMADM #### [facility] [address] [place] [address] Dr. Dank LovelaceAlbumin/Globulin [Mass ratio]1.1 {ratio}NormalThe Memorial Health SystemComment on above:Performed By: #### CMP, LIPA, TSH, BNP, CMADM #### [facility] [address] [place] [address] Dr. Dank Acosta [Catalytic activity/Vol]110 U/ZFhrszu34-227Vgd [facility] SystemComment on above:Performed By: #### CMP, LIPA, TSH, BNP, CMADM #### [facility] [address] [place] [address] Dr. Dank Choi [Catalytic activity/Vol]33 U/DMmvxuv25-62Kwd [facility] SystemComment on above:Performed By: #### CMP, LIPA, TSH, BNP, CMADM #### [facility] [address] [place] [address] Dr. Dank Jennings gap [Moles/Vol]20.3 mmol/LNormalAcmc [facility] Comment on above:Performed By: #### CMP, LIPA, TSH, BNP, CMADM #### [facility] [address] [place] [address] Dr. Dank Plata [Catalytic activity/Vol]31 U/VZlbrxc28-82Slq [facility] on above:Performed By: #### CMP, LIPA, TSH, BNP, CMADM #### [facility] [address] [place] [address] Dr. Dank LovelaceBilirubin [Mass/Vol]0.9 mg/dLNormal0.2-1.0The [facility] Comment on above:Performed By: #### CMP, LIPA, TSH, BNP, CMADM #### [facility] [address] [place] [address] Dr. Dank LovelaceCalcium [Mass/Vol]9.2 mg/dLNormal8.5-10.1[facility] Comment on above:Performed By: #### CMP, LIPA, TSH, BNP, CMADM #### [facility] [address] [place] [address] Dr. Dank LovelaceChloride [Moles/Vol]105 mmol/VDkerrc75-551Sdm [facility] Comment on above:Performed By: #### CMP, LIPA, TSH, BNP, CMADM #### [facility] [address] [place] [address] Dr. Dank LovelaceCO2 [Moles/Vol]16.6 mmol/LCritically low21.0-32.0The [facility] SystemComment on above:Performed By: #### CMP, LIPA, TSH, BNP, CMADM #### [facility] [address] [place] [address] Dr. Dank LovelaceCreatinine [Mass/Vol]1.27 mg/dLCritically high0.55-1.02The [facility] SystemComment on above:Performed By: #### CMP, LIPA, TSH, BNP, CMADM #### [facility] [address] [place] [address] Dr. Dank MeadGFR-AF ILULYNII49 mL/min/1.51n8Gyhkvjpomx low>=60The [facility] Health SystemComment on above:Performed By: #### CMP, LIPA, TSH, BNP, CMADM #### [facility] [address] [place] [address] Dr. Dank MeadGFR-NON AF ETIMXLJI37 mL/min/1.88l4Enxfivpdeo low>=60The [facility] Health SystemComment on above:Performed By: #### CMP, LIPA, TSH, BNP, CMADM #### [facility] [address] [place] [address] Dr. Dank LovelaceGlobulin (S) [Mass/Vol]3.3 g/dLNormalThe [facility] Health SystemComment on above:Performed By: #### CMP, LIPA, TSH, BNP, CMADM #### [facility] [address] [place] [address] Dr. Dank LovelaceGlucose [Mass/Vol]125 mg/dLCritically hclw85-168Ugy [facility] SystemComment on above:Performed By: #### CMP, LIPA, TSH, BNP, CMADM #### [facility] [address] [address] [address] Dank LovelacePotassium [Moles/Vol]3.9 mmol/LNormal3.5-5.1The [facility] Comment on above:Performed By: #### CMP, LIPA, TSH, BNP, CMADM #### [facility] [address] [place] [address] Dr. Dank LovelaceProtein [Mass/Vol]7.0 g/dLNormal6.4-8.2The [facility] Comment on above:Performed By: #### CMP, LIPA, TSH, BNP, CMADM #### [facility] [address] [place] [address] Dr. Dank LovelaceSodium [Moles/Vol]138 mmol/AHlyvwt202-226Kak [facility] Comment on above:Performed By: #### CMP, LIPA, TSH, BNP, CMADM #### [facility] [address] [place] [address] Dr. Dank LovelaceUrea nitrogen [Mass/Vol]25.0 mg/dLCritically high7.0-18.0The [facility] SystemComment on above:Performed By: #### CMP, LIPA, TSH, BNP, CMADM #### [facility] [address] [place] [address] Dr. Dank LovelaceUrea nitrogen/Creatinine [Mass ratio]19.7 mg/mgNormalThe [facility] Health SystemComment on above:Performed By: #### CMP, LIPA, TSH, BNP, CMADM #### [facility] [address] [place] [address] Dr. Dank Grant 52-84-5978FPS4.091 uIU/mLNormal0.358-3.740The [facility] Health SystemComment on above:Performed By: #### CMP, LIPA, TSH, BNP, CMADM #### [facility] [address] [place] [address] Dr. Dank LovelaceXR CHEST 1 Von 88-51-7075SZ CHEST 1 VEXAMINATION: XR CHEST 1 V HISTORY: Abdominal pain and diarrhea COMPARISON: None. TECHNIQUE: Portable chest FINDINGS: The lung parenchyma is free of consolidation or infiltrate. No pneumothorax or pleural effusion. The cardiac, mediastinal and hilar contours are normal. The visualized osseous structures exhibit no gross abnormality. IMPRESSION: No acute cardiopulmonary abnormality. 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 There is no indication of pulmonic valveregurgitation. Pericardium: There is no pericardial effusion noted. [...] 0.7 m/s (0.6-0.9m/s) PV Max P.0 mmHg [id number] Yuriy Conway MD, [facility] Electronically signed on 09/18/2022 at 5:16:24 PM Final NormalKindred Hospital - Denver SouthCovid-19 PCR (CVDTBH)on 08-25-2022 SARS-CoV-2 (COVID-19) RNA RAVIN+probe Ql (Unsp spec)Not detectedNormalNOT DETECTED The Memorial Health SystemComment on above:Result Comment: This test is not yet approved or cleared by the [place] FDA. When there are no FDA-approved or cleared tests available, and other criteria are met, FDA can make tests available under an emergency access mechanism called an Emergency Use Authorization (EUA). The EUA for this test is supported by the Medical Claims Processor of Health and Human Service's (HHS's) declaration [...] of clinical signs and symptoms consistent with SARS-CoV-2.Performed By: #### LIPSusan, MG, CMP #### [facility] [address] [place] [address] Dr. Dank Murguia CARDIAC STRESS/REST INJECTIONon [id number] CARDIAC STRESS/REST INJECTIONMRN: [id number] Patient Name: JESUS WOLF STUDY: MYOCARDIAL PERFUSION STRESS TEST WITH LEXISCAN Performing facility: [facility], [address] [place] [address], [address], [address] Provider: Yuiry Conway MD, FACC PCP: Dr. Treviño Supervising provider: Dennise Danielson INDICATION: HTN Hyperlipidemia A-fib Pre-operative risk assessment for Parathyroid scheduled at [facility] on 08-27-22. HISTORY: Gender: F; Age: 67 y/o ; Height: 170.1 cm; Weight: 123.1 kg. High Cholesterol; Arrhythmias; HTN; Lupus Denies smoking. COMPARISON: No comparison. ACCESSION NUMBER(S): [id number]; [id number]; [id number] ORDERING CLINICIAN: YURIY CONWAY TECHNIQUE: TWO DAY protocol. Stress injection: Date:08-15-22, 34.5 mCi of Myoview IV 20 seconds after rapid injection of Lexiscan. Rest injection: Date: 1-6-23, 34.4 mCi of Myoview IV at rest. [...] for comparison. Electronically signed by: ALINE SOUZA MDSt. Christopher's Hospital for ChildrenNo Panel Informationon 45-06-3070JhkjohSXBailey Medical Center – [place], [place] [address] DO Work Phone: Office Visit (Cardiology)on 52-78-0072Uebmpa-up visit Diagnoses/Problems Assessed Paroxysmal atrial fibrillation (427.31) [...] Echocardiogram; Status:Hold For - Scheduling,Retrospective Authorization; Requested for:[id number]; Class 2 severe obesity with serious comorbidity and body mass index (BMI) of 38.0 to 38.9 in adult Healthy Weight Tips; Status:Complete - Retrospective Authorization; Done: [id number] Some eating tips that can help you lose weight.; Status:Complete - Retrospective Authorization; Done: [id number] Essential hypertension, benign, Hyperlipidemia, Paroxysmal atrial fibrillation, Preoperative clearance NM Cardiac Stress/Rest Nuclear Med Order; Status:Hold For - Scheduling,Retrospective Authorization; Requested for:[id number]; Radiologist to Determine Optimal Study : Y What are the patient's signs and symptoms? : preop, paf, hdl, htn Paroxysmal atrial fibrillation IO EKG Electrocardiogram- 12 Lead; Status:Complete; Done: [id number] SocHx: Never a smoker Tobacco Use Screening; Status:Complete; Done: [id number] Patient Instructions Please bring all medicines, vitamins, [...] scheduled in August for parathyroid surgery at [facility], they will be faxing request for clearance. Follow up in 1 year. Chief Complaint JESUS WOLF is being seen for an annual follow-up of. Patient is in the office after more than 2 years hiatus [facility]. [facility] is in need for cardiac clearance prior to surgery. The patient has done well in thelast couple of years but was not very happy with the care she was receiving at the [facility]. She had ablation for atrial fibrillation couple years back at [facility] with Dr. Chino with no recurrences. She is not on antiarrhythmic therapy but has been on anticoagulation with Eliquis. She has no indication previous coronary heart disease but never had a stress test or cardiac catheterization. Her last echocardiogram from September 2021 at the [facility] revealed mildly dila manjinder ascending aorta at [...] radiofrequency ablation with pulmonary vein isolation at [facility] in 2019. She will continue on Eliquis EKG today confirmed normalsinus rhythm. 2. Sleep apnea, unable to utilize [...] 8. Systemic Lupus managed by rheumatology at [facility] on multiple medications and stable 9. Hypercalcemia [...] past medication was advised. Yuriy Conway MD, [facility] Surgical History Problems History of Appendectomy History of Cyst excision History of Foot surgery History of Hip replacement History of Tonsillectomy Past Medical History Problems History of Diastolic heart failure (428.30) (I5 (more content not included)... NormalUH TouchworksTobacco Screening.on 96-37-3654Oetnc depression screening assessmentNoNorth Valley Hospital PartTec 250 DO Work Phone: Fall risk assessmenta) No falls within the last year -[facility] [employer] 250 DO Work Phone: Tobacco use status CPHSb) NoM-[facility] Sherry 250 DO Work Phone: No Panel Informationon 05-64-1942Gjlmicyiq [facility] Comprehensive metabolic 2000 panelon 01-87-8930Qhncuyg [Mass/Vol]4.2 g/dL3.9 - 4.9 g/dLYatahey ClinicALP [Catalytic activity/Vol]134 U/LHigh34 - 123 U/L [facility] ClinicALT [Catalytic activity/Vol]20 U/L7 - 38 U/LCleveland [facility] Anion gap [Moles/Vol]11 mmol/L9 - 18 mmol/LCleveland ClinicAST [Catalytic activity/Vol]23 U/L13 - 35 U/LCleveland [facility] CenterBilirubin [Mass/Vol]0.5 mg/dL0.2 - 1.3 mg/dLYatahey ClinicCalcium [Mass/Vol]10.4 mg/dLHigh8.5 - 10.2 mg/dL [facility] ClinicChloride [Moles/Vol]109 mmol/LHigh97 - 105 mmol/LCleveland ClinicCO2 [Moles/Vol]22 mmol/L22 - 30 mmol/LCleveland [facility] CenterCreatinine [Mass/Vol]1.27 mg/dLHigh0.58 - 0.96 mg/dLBlanchard Valley Health System Blanchard Valley HospitalEstimated Glomerular Filtration Rate47 mL/min/1.73mLow>=60 mL/min/1.73mCleveland ClinicGlucose [Mass/Vol]104 mg/xZJuds51 - 99 mg/dLBlanchard Valley Health System Bl[facility] Valley HospitalPotassium [Moles/Vol]5.6 mmol/LHigh3.7 - 5.1 mmol/LCleveland ClinicProtein [Mass/Vol]5.8 g/dLLow6.3 - 8.0 g/dLYatahey ClinicSodium [Moles/Vol]142 mmol/L136 - 144 mmol/LCleveland [facility] CenterUrea nitrogen [Mass/Vol]33 mg/dLHigh7 - 21 mg/dLBlanchard Valley Health System Blanchard Valley HospitalPTH INTACT BLDon 69-50-2718Opevuulsdr.intact [Mass/Vol]89 pg/xAZhsp54 - 65 pg/mLCleveland Clinic1,25-dihydroxyvitamin D3 [Mass/Vol]on ,25 Dihydroxy Vitamin Total35.6 pg/mL19.9 - 79.3 pg/mLCleveland [facility] Care CenterVITAMIN D 25 HYDROXYon [id number]-zllchsprvfupcm D3 [Mass/Vol]58.2 ng/mL31.0 - 80.0 ng/mLCleveland ClinicPTH INTACT BLDon 31-37-6673Nhgluarpuy.intact [Mass/Vol]83 pg/aULkfx35 - 65 pg/mLCleveland ClinicDXA-AXIAL SKELETONon 58-06-9975SRBGMY T-SCORE-2.1Cleveland Sxophj9027 NOVEL CORONAVIRUS (COVID-19)on 19-15-5566HKUL-CoV-2 (COVID-19) RNA RAVIN+probe Ql (Unsp spec)NegativeBlanchard Valley Health System Blanchard Valley HospitalCB W Auto Differential panel (Bld)on 19-70-0395Wph Immature Gran<0.03<0.10 k/uLBlanchard Valley Health System Blanchard Valley HospitalBasophils (Bld) [#/Vol]0.06 10*3/uL<0.11 k/uLBlanchard Valley Health System Blanchard Valley HospitalBasophils/100 WBC (Bld)0.9 % [facility] Blanch[facility] Valley HospitalDifferential cell count method Nom (Bld)AutoCleveland [facility] Eosinophils (Bld) [#/Vol]0.31 10*3/uL<0.46 k/uLBlanchard Valley Health System Blanchard Valley HospitalEosinophils/100 WBC (Bld)4.5 %[facility] Bl[facility] Valley HospitalErythrocyte distribution width (RBC) [Ratio]12.4 % 11.5 - 15.0 %[facility] Bl[facility] Valley HospitalHematocrit (Bld) [Volume fraction]41.8 %36.0 - 46.0 %[facility] Bl[facility] Valley HospitalHemoglobin (Bld) [Mass/Vol]13.8 g/dL11.5 - 15.5 g/dLBlanchard Valley Health System Blanchard Valley HospitalImmature Gran %0.3 %[facility] Bl[facility] Valley HospitalLymphocytes (Bld) [#/Vol]2.00 10*3/uL 1.00 - 4.00 k/uLBlanchard Valley Health System Blanchard Valley HospitalLymphocytes/100 WBC (Bld)29.2 %[facility] MCH (RBC) [Entitic mass]32.5 pg26.0 - 34.0 pgCleveland [facility] Care CenterMCHC (RBC) [Mass/Vol]33.0 g/dL30.5 - 36.0 g/dLBlanchard Valley Health System Blanchard Valley HospitalMCV (RBC) [Entitic vol]98.4 fL80.0 - 100.0 fLCleveland ClinicMonocytes (Bld) [#/Vol]0.94 10*3/uLHigh<0.87 k/uLYatahey ClinicMonocytes/100 WBC (Bld)13.7 %Yatahey ClinicNeutrophils (Bld) [#/Vol]3.52 10*3/uL1.45 - 7.50 k/uLYatahey ClinicNeutrophils/100 WBC (Bld)51.4 %Yata[facility] ClinicNucleated RBC (Bld) [#/Vol]10*3/uL<0.01 k/uLBlanchard Valley Health System Blanchard Valley HospitalNucleated RBC/100 WBC (Bld) [Ratio]0.0 /100 WBCYatahey ClinicPlatelet mean volume (Bld) [Entitic vol]10.5 fL9.0 - 12.7 fLCleveland ClinicPlatelets (Bld) [#/Vol]254 10*3/uL150 - 400 k/uLBlanchard Valley Health System Blanchard Valley HospitalRBC (Bld) [#/Vol]4.25 10*6/uL3.90 - 5.20 m/uLYatahey ClinicWBC (Bld) [#/Vol]6.85 10*3/uL3.70 - 11.00 k/uLBlanchard Valley Health System Blanchard Valley HospitalComprehensive metabolic 2000 panelon 21-72-6821Mqoidyr [Mass/Vol]4.3 g/dL3.9 - 4.9 g/dLYatahey ClinicALP [Catalytic activity/Vol]112 U/L34 - 123 U/LCleveland ClinicALT [Catalytic activity/Vol]30 U/L7 - 38 U/L [facility] ClinicAnion gap [Moles/Vol]10 mmol/L9 - 18 mmol/LCleveland ClinicAST [Catalytic activity/Vol]32 U/L13 - 35 U/LCleveland ClinicBilirubin [Mass/Vol]0.6 mg/dL0.2 - 1.3 mg/dLYatahey ClinicCalcium [Mass/Vol]11.0 mg/dLHigh8.5 - 10.2 mg/dLYatahey ClinicChloride [Moles/Vol]105 mmol/L97 - 105 mmol/LCleveland ClinicCO2 [Moles/Vol]23 mmol/L22 - 30 mmol/LCleveland ClinicCreatinine [Mass/Vol]1.01 mg/dLHigh0.58 - 0.96 mg/dLBlanchard Valley Health System Blanchard Valley HospitalEstimated Glomerular Filtration Rate62 mL/min/1.73m>=60 mL/min/1.73mCleveland ClinicGlucose [Mass/Vol]86 mg/dL74 - 99 mg/dLBlanchard Valley Health System Blanchard Valley HospitalPotassium [Moles/Vol]5.0 mmol/L 3.7 - 5.1 mmol/LCleveland ClinicProtein [Mass/Vol]6.4 g/dL6.3 - 8.0 g/dL TriHealthodium [Moles/Vol]138 mmol/L136 - 144 mmol/LCleveland ClinicUrea nitrogen [Mass/Vol]25 mg/dLHigh7 - 21 mg/dLKindred Hospital Lima Westergren method (Bld) [Velocity]on 82-34-4484HMK (Bld) [Velocity]10 mm/h0 - 20 mm/hr [facility]or[facility] - Chemistry and Chemistry - challengeon 21-30-4291IKN [Mass/Vol]0.4 mg/dL<0.9 mg/dLMount St. Mary Hospitaloratory - Hematology and Cell countson 44-43-1876Glvbunpmvl C3 [Mass/Vol]167 mg/yYLtmh47 - 166 mg/dLBlanchard Valley Health System Blanchard Valley HospitalComplement C4 [Mass/Vol]38 mg/dL13 - 46 mg/dLCrystal Clinic Orthopedic Center AUTO DIFF on 77-58-4855BIWR #0.1 103/ulNormal0.0-0.1The Memorial Health SystemComment on above: Performed By: #### LIPA, MG, CMP #### [facility] [address] [address] [address] Dank Walkerphils/100 WBC (Bld)0.4 %Normal0.2-2.0The [facility] Comment on above:Performed By: #### LIPA, MG, CMP #### [facility] [address] [address] [address] Dank Ferro #0.2 103/ulNormal0.0-0.7The Memorial Health SystemComment on above: Performed By: #### LIPA, MG, CMP #### [facility] [address] [place] [address] Dr. Dank Meadosinophils/100 WBC (Bld)2.0 %Normal0.9-7.0The [facility] Comment on above:Performed By: #### LIPA, MG, CMP #### [facility] [address] [place] [address] Dr. Dank Meadrythrocyte distribution width (RBC) [Ratio]12.1 %Cdbvpe06.0-15.0 The Memorial Health SystemComment on above:Performed By: #### LIPA, MG, CMP #### [facility] [address] [place] [address] Dr. Dank LovelaceHematocrit (Bld) [Volume fraction]48.6 %Critically high36.0-48.0 The Memorial Health SystemComment on above:Performed By: #### LIPA, MG, CMP #### [facility] [address] [place] [address] Dr. Dank LovelaceHemoglobin (Bld) [Mass/Vol]16.2 g/dLCritically high12.0-16.0The Memorial Health SystemComment on above:Performed By: #### LIPA, MG, CMP #### [facility] [address] [place] [address] Dr. Dank Gallegos #0.06 10e3/ulCritically high0.00-0.03The [facility] Comment on above:Performed By: #### LIPA, MG, CMP #### [facility] [address] [place] [address] Dr. Dank Gallegos %0.5 %Normal0.0-0.5The Memorial Health SystemComment on above: Performed By: #### LIPA, MG, CMP #### [facility] [address] [place] [address] Dr. Dank Mitchell #1.9 103/ulNormal1.2-3.8The Memorial Health SystemComment on above:Performed By: #### LIPA, MG, CMP #### [facility] [address] [place] [address] Dr. Yilan ChangLymphocytes/100 WBC (Bld)16.0 %Critically low20.5-60.0The Memorial Health SystemComment on above:Performed By: #### LIPA, MG, CMP #### [facility] [address] [place] [address] Dr. Dank Ruiz DIFF REQNONormalThe Memorial Health SystemComment on above: Performed By: #### LIPA, MG, CMP #### [facility] [address] [place] [address] Dr. Dank Crow (RBC) [Entitic mass]32.3 ibBgayde28.7-34.0The Memorial Health SystemComment on above:Performed By: #### LIPA, MG, CMP #### [facility] [address] [place] [address] Dr. Dank Crow (RBC) [Mass/Vol]33.3 g/eCKunmxc08.9-35.2The Memorial Health SystemComment on above:Performed By: #### LIPA, MG, CMP #### [facility] [address] [place] [address] Dr. Dank Crow (RBC) [Entitic vol]97.0 pNVhpudf10.0-99.0The Memorial Health SystemComment on above:Performed By: #### LIPA, MG, CMP #### [facility] [address] [place] [address] Dr. Dank Tavarez #1.3 103/ulCritically high0.3-0.8The [facility] Comment on above:Performed By: #### LIPA, MG, CMP #### [facility] [address] [place] [address] Dr. Dank Guamanocytes/100 WBC (Bld)11.2 %Normal1.7-12.0[facility] Comment on above:Performed By: #### LIPA, MG, CMP #### [facility] [address] [place] [address] Dr. Dank Pinon #8.2 103/ulCritically high1.4-6.5The [facility] Comment on above:Performed By: #### LIPA, MG, CMP #### [facility] [address] [place] [address] Dr. Dank Andersenophils/100 WBC (Bld)69.9 %Iqhkrc36.0-75.0The Memorial Health SystemComment on above:Performed By: #### LIPA, MG, CMP #### [facility] [address] [place] [address] Dr. Dank Arias mean volume (Bld) [Entitic vol]10.0 fLNormal9.5-13.5The Memorial Health SystemComment on above:Performed By: #### LIPA, MG, CMP #### [facility] [address] [place] [address] Dr. Dank LovelacePLT317 103/haZzujvh584-691Xqk Memorial Health SystemComment on above: Performed By: #### LIPA, MG, CMP #### [facility] [address] [place] [address] Dr. Dank BeltránC5.01 106/ulNormal4.20-5.40The Memorial Health SystemComment on above:Performed By: #### LIPA, MG, CMP #### [facility] [address] [place] [address] Dr. Dank LovelaceWBC11.7 103/ulCritically high4.0-11.0The Memorial Health SystemComment on above:Performed By: #### LIPA, MG, CMP #### [facility] [address] [place] [address] Dr. Dank Renner URINE PROFILEon 50-17-3056Bohevbhok Ql (U)NegativeNormal NEGATIVEThe Memorial Health SystemComment on above:Performed By: #### ERUR #### [facility] [address] [place] [address] Dr. Dank Bernstein (U)CLEARNormalCLEARThe Memorial Health SystemComment on above: Performed By: #### ERUR #### [facility] [address] [place] [address] Dr. Yilan ChangColor (U)LT. YELLOWNormalYELLOWAcmc Healthcare System GlenbeighComment on above:Performed By: #### ERUR #### [facility] [address] [place] [address] Dr. Dank Bravo micrscopic examination will be performed if indicated. NormalAcmc Healthcare System GlenbeighComment on above:Performed By: #### ERUR #### [facility] [address] [place] [address] Dr. Dank LovelaceGlucose Ql (U)NegativeNormalNEGATIVEAcmc Healthcare System GlenbeighComment on above:Performed By: #### ERUR #### [facility] [address] [place] [address] Dr. Dank LovelaceHemoglobin Ql (U)NegativeNormalNEGATIVETwin City Hospital on above:Performed By: #### ERUR #### [facility] [address] [place] [address] Dr. Dank LovelaceKetones Ql (U)NegativeNormalNEGATIVEAcmc Healthcare System GlenbeighComment on above:Performed By: #### ERUR #### [facility] [address] [place] [address] Dr. Dank LovelaceLEUKOCYTESNegativeNormalNEGATIVEAcmc Healthcare System GlenbeighCommymichigan medical center gladwin on above:Performed By: #### ERUR #### [facility] [address] [place] [address] Dr. Dank LovelaceNitrite Ql (U)NegativeNormalNEGATIVEAcmc Healthcare System GlenbeighComment on above:Performed By: #### ERUR #### [facility] [address] [place] [address] Dr. Dank LovelacepH (U)5.5 [pH]Normal5-9[facility] GlenbeighComment on above: Performed By: #### ERUR #### [facility] [address] [place] [address] Dr. Dank LovelaceSPEC GRAVITY1.241Rznkpf4.005-<=1.025A[facility] System GlenbeighComment on above:Performed By: #### ERUR #### [facility] [address] [place] [address] Dr. Dank Mora PROTEINNegativeNormalNEGATIVE/ TRACEThe [facility] Comment on above:Performed By: #### ERUR #### [facility] [address] [place] [address] Dr. Dank Bautista MICRO INDNOT INDICATEDNormalThe Memorial Health SystemComment on above:Performed By: #### ERUR #### [facility] [address] [place] [address] Dr. Dank LovelaceUrobilinogen Qn (U)0.2 {Simon'U}/dLNormal0.2 - 1.0The Memorial Health SystemComment on above:Performed By: #### ERUR #### [facility] [address] [place] [address] Dr. Dank LovelaceLIPASEon 67-36-6669Pqwuiy [Catalytic activity/Vol]39.0 U/L Critically low73.0-393.0The Memorial Health SystemComment on above:Performed By: #### LIPA, MG, CMP #### [facility] [address] [place] [address] Dr. Dank LovelaceMAGNESIUMon 59-59-9639Umvhlredg [Mass/Vol]1.4 mg/dLCritically low 1.8-2.4The [facility] Health SystemComment on above:Performed By: #### LIPA, MG, CMP #### [facility] [address] [place] [address] Dr. Dank LovelacePROF 14(COMP METB)on 54-26-4211Hxcfkzm [Mass/Vol]3.8 g/dLNormal 3.4-5.0The [facility] Health SystemComment on above:Performed By: #### LIPA, MG, CMP #### [facility] [address] [place] [address] Dr. Dank LovelaceAlbumin/Globulin [Mass ratio]0.9 {ratio}NormalThe Memorial Health SystemComment on above:Performed By: #### LIPA, MG, CMP #### [facility] [address] [place] [address] Dr. Yilan ChangALP [Catalytic activity/Vol]150 U/LCritically egbg82-619Yle [facility] Health SystemComment on above:Performed By: #### LIPA, MG, CMP #### [facility] [address] [place] [address] Dr. Dank HallT [Catalytic activity/Vol]31 U/DPomceb00-10Qgb [facility] SystemComment on above:Performed By: #### LIPA, MG, CMP #### [facility] [address] [place] [address] Dr. Dank Isabelon gap [Moles/Vol]16.4 mmol/LNormalThe [facility] Comment on above:Performed By: #### LIPA, MG, CMP #### [facility] [address] [place] [address] Dr. Dank LovelaceAST [Catalytic activity/Vol]18 U/AEbzymj97-63Ldj [facility] SystemComment on above:Performed By: #### LIPA, MG, CMP #### [facility] [address] [place] [address] Dr. Dank LovelaceBilirubin [Mass/Vol]0.4 mg/dLNormal0.2-1.0The [facility] Comment on above:Performed By: #### LIPA, MG, CMP #### [facility] [address] [place] [address] Dr. Dank LovelaceCalcium [Mass/Vol]11.7 mg/dLCritically high8.5-10.1The [facility] Health SystemComment on above:Performed By: #### LIPA, MG, CMP #### [facility] [address] [place] [address] Dr. Dank LovelaceChloride [Moles/Vol]103 mmol/HVipadp50-906Kso [facility] Comment on above:Performed By: #### LIPA, MG, CMP #### [facility] [address] [place] [address] Dr. Dank LovelaceCO2 [Moles/Vol]20.4 mmol/LCritically low21.0-32.0The [facility] Health SystemComment on above:Performed By: #### LIPA, MG, CMP #### [facility] [address] [place] [address] Dr. Dank LovelaceCreatinine [Mass/Vol]1.14 mg/dLCritically high0.55-1.02The [facility] Health SystemComment on above:Performed By: #### LIPA, MG, CMP #### [facility] [address] [place] [address] Dr. Dank MeadGFR-AF TAGJYQZK97 mL/min/1.44x1Aeoyucbuvu low>=60The [facility] Health SystemComment on above:Performed By: #### LIPA, MG, CMP #### [facility] [address] [place] [address] Dr. Dank MeadGFR-NON AF JMAMVNML91 mL/min/1.82k1Ivvfmolsto low>=60The [facility] Health SystemComment on above:Performed By: #### LIPA, MG, CMP #### [facility] [address] [place] [address] Dr. Dank LovelaceGlobulin (S) [Mass/Vol]4.4 g/dLNormalThe [facility] Health SystemComment on above:Performed By: #### LIPA, MG, CMP #### [facility] [address] [place] [address] Dr. Dank LovelaceGlucose [Mass/Vol]124 mg/dLCritically ilcl44-961Ghx [facility] Ohioment on above:Performed By: #### LIPA, MG, CMP #### [facility] [address] [place] [address] Dr. Dank LovelacePotassium [Moles/Vol]4.8 mmol/LNormal3.5-5.1The [facility] Comment on above:Performed By: #### LIPA, MG, CMP #### [facility] [address] [place] [address] Dr. Dank LovelaceProtein [Mass/Vol]8.2 g/dLNormal6.4-8.2The [facility] Comment on above:Performed By: #### LIPA, MG, CMP #### [facility] [address] [place] [address] Dr. Dank LovelaceSodium [Moles/Vol]135 mmol/LCritically xgk967-821QvkAcmc Healthcare System GlenbeighComment on above:Performed By: #### LIPA, MG, CMP #### [facility] [address] [address] [address] Dank Richey nitrogen [Mass/Vol]28.0 mg/dLCritically high7.0-18.0The Memorial Health SystemComment on above:Performed By: #### LIPA, MG, CMP #### [facility] [address] [address] [address] Dank LovelaceUrea nitrogen/Creatinine [Mass ratio]24.6 mg/mgNormalThCleveland Clinic Avon HospitalComment on above:Performed By: #### LIPA, MG, CMP #### [facility] [address] [address] [address] Dank LovelaceActivated partial thromboplastin time (aPTT) in platelet poor plasma by coagulation aOrdered By: Hussain Cat on 47-81-4510dNJY Coag (PPP) [Time]34.7 s25.1-36.5FSelect Medical Cleveland Clinic Rehabilitation Hospital, AvonAlbumin [Mass/volume] in Serum or PlasmaOrdered By: Hussain Cat on 02-08-2022 Albumin [Mass/Vol]3.5 g/dL3.2-5.5FSelect Medical Cleveland Clinic Rehabilitation Hospital, AvonBasophils Auto (Bld) [#/Vol]Ordered By: Hussain Cat on 57-33-3654Oqytgiwpf (Bld) [#/Vol]0.0 10*3/uL0.0-0.2FSelect Medical Cleveland Clinic Rehabilitation Hospital, AvonBasophils/100 WBC Auto (Bld)Ordered By: Hussain Cat on 60-26-7903Zdtdbqbuk/100 WBC (Bld)0.0 % [facility] CenterBlood hemoglobin measurement (mass/volume) Ordered By: Hussain Cat on 89-70-5174Yjutptnvua (Bld) [Mass/Vol]13.3 g/dL11.8-15.4FSelect Medical Cleveland Clinic Rehabilitation Hospital, AvonBlood leukocytes automated count (number/volume)Ordered By: Hussain Cat on 99-02-5733WGR (Bld) [#/Vol] 11.8 10*3/uL4.5-11.0[facility] CenterCreatinine and Glomerular filtration rate.predicted panel (S/P/Bld)Ordered By: Hussain Cat on 53-98-3805Skpizhsfge [Mass/Vol]0.90 mg/dL0.44-1.03[facility] CenterEosinophils Auto (Bld) [#/Vol]Ordered By: Hussain Cat on 47-55-9422Fscendnunbo (Bld) [#/Vol]0.0 10*3/uL0.0-0.45[facility] CenterEosinophils/100 WBC Auto (Bld)Ordered By: Hussainstephen Cat on 27-77-1498Jtpdflrmllo/100 WBC (Bld)0.0 %[facility] Erythrocyte distribution width Auto (RBC) [Ratio]Ordered By: Hussain Cat on 61-24-7794Rhqtdkwltqf distribution width (RBC) [Ratio]13.0 %11.9-15.3 [facility] CenterErythrocyte sedimentation rate by Photometric methodOrdered By: Rachelle Frazier on 78-15-9655QTQ Photometric method (Bld) [Velocity]40 mm/hr0-29[facility] CenterEstimated glomerular filtration rate (GFR) non- AmericanOrdered By: Hussain Cat on 32-59-3598FLE/1.73 sq M.predicted among non-blacks MDRD (S/P/Bld) [Vol rate/Area]> 60 mL/MinSouthern Ohio Medical CenterFolate [Mass/volume] in Serum or PlasmaOrdered By: Hussain Cat on 56-65-8339Epwdpf [Mass/Vol] ng/mL>5.9[facility] CenterComment on above:Folate reference range: >5.9 ng/ml The WHO technical consultation on folate and vitamin b12 deficiencies has determined that folate concentrations less than 4 ng/ml are considered deficient.Globulin Calc (S) [Mass/Vol]Ordered By: Hussain Cat on 21-95-7342Lompmrsq (S) [Mass/Vol]2.7 g/dLSouthern Ohio Medical CenterHematocrit Auto (Bld) [Volume fraction]Ordered By: Hussain Cat on 19-14-5594Trzrmloqtf (Bld) [Volume fraction]39.0 % 34.0-46.4FSelect Medical Cleveland Clinic Rehabilitation Hospital, AvonLaboratory - Chemistry and Chemistry - challengeOrdered By: Hussain Cat on 60-99-9636Fyfypvlew (Vitamin B12) [Mass/Vol]486 pg/nR407-714OxelxcsxySouthern [facility] Medical CenterMagnesium [Mass/Vol] 1.4 mg/dL1.6-2.6FSelect Medical Cleveland Clinic Rehabilitation Hospital, AvonLaboratory - CoagulationOrdered By: Hussain Cat on 47-47-9702IX Coag (PPP) [Time]16.0 s9.0-12.9 [facility] CenterLaboratory - Hematology and Cell countsOrdered By: Hussain Cat on 07-24-9678Pahnilkxv RBC/100 WBC (Bld) [Ratio]0.0 % 0-0.5FSelect Medical Cleveland Clinic Rehabilitation Hospital, AvonLymphocytes Auto (Bld) [#/Vol]Ordered By: Hussain Cat on 98-20-3685Ntldzevayxz (Bld) [#/Vol]0.7 10*3/uL1.00-4.8 [facility] CenterLymphocytes/100 WBC Auto (Bld)Ordered By: Hussain Cat on 33-14-8959Fuaqffxztpv/100 WBC (Bld)6.1 %[facility] Auto (RBC) [Entitic mass]Ordered By: Hussain Cat on 17-90-8674AZY (RBC) [Entitic mass]32.7 pg24.7-34.3FSelect Medical Cleveland Clinic Rehabilitation Hospital, AvonMCHC Auto (RBC) [Mass/Vol]Ordered By: Hussain Cat on 52-15-6253OQDQ (RBC) [Mass/Vol]34.0 g/dL32.0-35.0[facility] CenterMCV Auto (RBC) [Entitic vol]Ordered By: Hussain Cat on 02-08-2022 MCV (RBC) [Entitic vol]96.2 cL19-286VvwhfdevrSouthern Ohio Medical CenterMonocytes Auto (Bld) [#/Vol]Ordered By: Hussain Cat on 84-98-1180Djxubkvvw (Bld) [#/Vol]0.3 10*3/uL0.0-0.8[facility] CenterMonocytes/100 WBC Auto (Bld)Ordered By: Hussain Cat on 13-39-0226Kdziglukw/100 WBC (Bld)2.5 % [facility] CenterNeutrophils Auto (Bld) [#/Vol]Ordered By: Hussain Cat on 84-49-9175Uzvyfrcbuyh (Bld) [#/Vol]10.8 10*3/uL1.8-7.7 [facility] CenterNeutrophils/100 WBC Auto (Bld)Ordered By: Hussain Cat on 41-97-5507Cxkvyniuqyu/100 WBC (Bld)91.4 %[facility] CenterNo Panel InformationOrdered By: Hussain Cat on 45-06-485341702786-Eadhrqe Vitamin D Total66.1 ng/kH89-855FjrbtolqaSouthern Ohio Medical CenterComment on above:VITAMIN D STATUS 25(OH)VITAMIN D RANGE (ng/mL) Deficient <20 Insufficient 20 to <30 Sufficient 30 to 100 Reference: Geraldine MF,Nkechi NC, Raegan CLIFFORD, et al. Evaluation,treatment, and prevention of vitamin D deficiency; an Endocrine Society clinical practice guideline. JCEM. 2010; 96(7):1911-30.Estimated GFR ()> 60 mL/MinSouthern Ohio Medical CenterComment on above: GFR estimated reference range: According to KDOQI guidelines, <60 ml/min/1.73m2 is sufficient todiagnose a patient with chronic kidney disease.Pharmacy Creatinine Clearance (Chem80.69[facility] CenterPlatelet mean volume Auto (Bld) [Entitic vol]Ordered By: Hussain Cat on 02-08-2022 Platelet mean volume (Bld) [Entitic vol]8.6 fL6.3-10.7FSelect Medical Cleveland Clinic Rehabilitation Hospital, AvonPlatelet poor plasma international normalized ratio (INR) by coagulation assay (relatOrdered By: Hussain Cat on 57-75-7962HNN Coag (PPP) [Relative time]1.4 {INR}[facility] CenterComment on above:INR Therapeutic Range A) Pre- and Peroperative OAT started two weeks before surgery. NOT HIP SURGERY: 1.5 - 2.5 HIP SURGERY: 2 - 3 B) Primary and secondary prevention of venous THROMBOSIS: 2 - 3 C) Active venous thrombosis, pulmonary embolism and prevention of recurrent venous thrombosis: 2 - 3 D) Prevention of arterial thromboembolism including patients with mechanical heart valves: 3 - 4.5Platelets Auto (Bld) [#/Vol]Ordered By: Hussain Cat on 51-11-3625Vturhyooy (Bld) [#/Vol]276 10*3/bD141-086WxoyqnhcjSouthern [facility] Medical CenterProtein [Mass/volume] in Serum or PlasmaOrdered By: Hussain Cat on 25-45-5251Rlyziwk [Mass/Vol]6.2 g/dL 6.1-7.9[facility] CenterRBC Auto (Bld) [#/Vol]Ordered By: Hussain Cat on 66-89-1478FUD (Bld) [#/Vol]4.06 10*6/uL3.60-5.00ProMedica Memorial Hospitalerum or plasma C reactive protein measurement (mass/volume)Ordered By: Rachelle Frazier on 89-81-0398SVU [Mass/Vol]3.9 mg/dL 0.0-1.0Pro[facility]ica Memorial Hospitalerum or plasma alanine aminotransferase measurement without P-5'-P (enzymatic activiOrdered By: Hussain Cat on 79-40-2889GCA No additional P-5'-P [Catalytic activity/Vol]24 U/N04-92OiyiisnoqProMedica Memorial Hospitalerum or plasma albumin/globulin mass ratioOrdered By: uHssain Cat on 56-09-7030Aqtnvjl/Globulin [Mass ratio]1.3 {ratio} [facility] Hospitalerum or plasma alkaline phosphatase measurement (enzymatic activity/volume)Ordered By: Hussain Cat on 11-10-8245XSM [Catalytic activity/Vol]87 U/N20-22JknywdzmaProMedica Memorial Hospitalerum or plasma aspartate aminotransferase measurement (enzymatic activity/volume)Ordered By: Hussainstephen Rickettsia on 40-43-5561YEG [Catalytic activity/Vol]22 U/S39-89LxtchabyjProMedica Memorial Hospitalerum or plasma calcium measurement (mass/volume)Ordered By: Hussain Rickettsia on 14-89-0025Vzzkely [Mass/Vol]10.2 mg/dL8.2-10.2FAshtabula County Medical Centererum or plasma chloride measurement (moles/volume)Ordered By: Hussainstephen [facility] on 02-08-2022 Chloride [Moles/Vol]103 mmol/O56-057UbeyvcvhtProMedica Memorial Hospitalerum or plasma glucose measurement (mass/volume)Ordered By: Hussain Doameaurora [facility] care [facility] on 38-70-7513Hkjtfya [Mass/Vol]119 mg/rM58-146QbkapffmuSouthern [facility] Medical Center Comment on above:ADA recommended reference range Random Glucose Reference Range is dependent on time and content of last meal. Glucose of more than 200 mg/dL in a nonstressed, ambulatory subject supports the diagnosis of Diabetes Mellitus.Serum or plasma potassium measurement (moles/volume)Ordered By: Hussain Rickettsia on 69-87-2833Bpdfqatwm [Moles/Vol] 4.6 mmol/L3.5-5.1FAshtabula County Medical Centererum or plasma sodium measurement (moles/volume)Ordered By: Hussain Cat on 30-04-2262Swbjwf [Moles/Vol]139 mmol/X862-539FpjclgcayProMedica Memorial Hospitalerum or plasma total bilirubin measurement (mass/volume)Ordered By: Hussainhloly Rickettsia on 56-97-9117Hmprnbxfb [Mass/Vol]0.8 mg/dL0.3-1.2FSelect Medical Cleveland Clinic Rehabilitation Hospital, [place]on Serum or plasma total carbon dioxide measurement (moles/volume)Ordered By: Hussain Rickettsia on 22-43-5533HV8 [Moles/Vol]22.3 mmol/L22.0-30.0Pro[facility] Memorial Hospitalerum or plasma urea nitrogen measurement (mass/volume) Ordered By: Hussain Cat on 29-94-4362Qutr nitrogen [Mass/Vol]24 mg/dL 9-[facility] DL <= 0.005 mIU/L QnOrdered By: Hussain Cat on 94-21-2987MOP Qn1.31 m[IU]/L0.45-5.33[facility] CenterActivated partial thromboplastin time (aPTT) in platelet poor plasma by coagulation aOrdered By: Chapincito Barraza on 35-57-5165nICX Coag (PPP) [Time]35.5 s25.1-36.5FSelect Medical Cleveland Clinic Rehabilitation Hospital, AvonAutomated erythrocytes count in urine sediment (number/area)Ordered By: Chapincito Barraza on 83-18-6427HEJ Auto (Urine sed) [#/Area]0-1 [HPF][facility] CenterAutomated leukocytes count in urine sediment (number/area)Ordered By: Chapincito Barraza on 71-99-2690JJA Auto (Urine sed) [#/Area]3-4 [HPF][facility] CenterBasophils Auto (Bld) [#/Vol]Ordered By: Chapincito Barraza on 79-20-0441Hogipqufz (Bld) [#/Vol]0.1 10*3/uL0.0-0.2FSelect Medical Cleveland Clinic Rehabilitation Hospital, AvonBasophils/100 WBC Auto (Bld)Ordered By: Chapincito Barrzaa on 49-31-5178Rtfdrhval/100 WBC (Bld)0.5 % [facility] CenterBilirubin Test strip Ql (U)Ordered By: Chapincito Barraza on 87-47-7569Tgnncnfly Ql (U)NegativeNegativeSouthern Ohio Medical CenterBlood hemoglobin measurement (mass/volume)Ordered By: Chapincito Barraza on 61-56-7045Oaxhdivnpx (Bld) [Mass/Vol]13.6 g/dL11.8-15.4FSelect Medical Cleveland Clinic Rehabilitation Hospital, AvonBlood leukocytes automated count (number/volume)Ordered By: Chapincito Barraza on 61-22-2791LWR (Bld) [#/Vol]11.3 10*3/uL4.5-11.0[facility] CenterCOVID-19 Positive/NegativeOrdered By: Chapincito Barraza on 02-07-2022 SARS-CoV-2 (COVID-19) N gene RAVIN+probe Ql (Resp)NegativeNegativeSouthern Ohio Medical CenterComment on above:Testing for SARS-CoV-2 by RT-PCR This test was developed and its performance characteristics determined by [employer] ([employer]) and validated at the [facility]. This test has not been FDA cleared [...] of time the declaration that circumstances exist ju stifying the authorization of the emergency use of in vitro diagnostic tests for detection of SARS-CoV-2 virus and/or diagnosis of COVID-19 infection under section 564(b)(1) of the Act, 21 U.S.C. 360bbb-3(b)(1), unless the authorization is terminated or revoked sooner.COVID-19 SOFIAOrdered By: Chapincito Barraza on 11-22-5913STLK-CoV+SARS-CoV-2 (COVID-19) Ag IA.rapid Ql (Resp)NegativeNegative [facility] CenterComment on above:This is a duplicate Samia SARS Antigen (JESUS) result to be used for statistical tracking purpose only.Color Auto (U)Ordered By: Chapincito Barraza on 59-41-0985Xkevw (U)Dark yellowYellowSouthern Ohio Medical CenterCreatine kinase [Enzymatic activity/volume] in Serum or PlasmaOrdered By: Chapincito Barraza on 18-29-9374MX [Catalytic activity/Vol]154 U/L [facility] CenterCreatinine (Bld) [Mass/Vol]Ordered By: Hussain Cat on 04-02-9564Kjemtrbdlr [Mass/Vol]1.0 mg/dL0.6-1.3FSelect Medical Cleveland Clinic Rehabilitation Hospital, AvonComment on above:ER/ESD physician is notified/shown all ISTAT results. Critical values may be confirmed by laboratory testing if deemed necessary by ER attending doctor.Creatinine and Glomerular filtration rate.predicted panel (S/P/Bld)Ordered By: Chapincito Barraza on 05-98-5665Ywktsmaiol [Mass/Vol]1.03 mg/dL0.44-1.03[facility] CenterEosinophils Auto (Bld) [#/Vol]Ordered By: Chapincito Barraza on 22-46-0433Dyeypnphmqg (Bld) [#/Vol]0.2 10*3/uL0.0-0.45[facility] CenterEosinophils/100 WBC Auto (Bld) Ordered By: Chapincito Barraza on 86-41-8103Bqhdilsgelz/100 WBC (Bld)1.8 %[facility] CenterErythrocyte distribution width Auto (RBC) [Ratio]Ordered By: Chapincito Barraza on 99-54-0673Opqspuclwws distribution width (RBC) [Ratio]13.0 % 11.9-15.3FSelect Medical Cleveland Clinic Rehabilitation Hospital, AvonEstimated glomerular filtration rate (GFR) non- AmericanOrdered By: Chapincito Barraza on 49-66-8286VWL/1.73 sq M.predicted among non-blacks MDRD (S/P/Bld) [Vol rate/Area]54 mL/MinSouthern Ohio Medical CenterHematocrit Auto (Bld) [Volume fraction]Ordered By: Chapincito Barraza on 50-65-3008Rqklmjdevx (Bld) [Volume fraction]40.9 %34.0-46.4FSelect Medical Cleveland Clinic Rehabilitation Hospital, AvonKetones Auto test strip (U) [Mass/Vol]Ordered By: Chapincito Barraza on 53-19-5326Ubftqae (U) [Mass/Vol]NegativeNegativeSouthern Ohio Medical CenterLaboratory - Chemistry and Chemistry - challengeOrdered By: Chapincito Barraza on 42-28-1500Rkpowtoozjy peptide B (Bld) [Mass/Vol]77.0 pg/mL5-100 [facility] CenterLaboratory - CoagulationOrdered By: Chapincito Barraza on 85-09-0856HM Coag (PPP) [Time]16.3 s9.0-12.9[facility] Laboratory - Hematology and Cell countsOrdered By: Chapincito Barraza on 02-07-2022 Nucleated RBC/100 WBC (Bld) [Ratio]0.0 %0-0.5FSelect Medical Cleveland Clinic Rehabilitation Hospital, [place]on Laboratory - Microbiology and Antimicrobial susceptibilityOrdered By: Chapincito Barraza on 88-62-5713CCSQ-CoV-2 (COVID-19) RNA RAVIN+probe Ql (Unsp spec)N/AFSelect Medical Cleveland Clinic Rehabilitation Hospital, AvonLaboratory - UrinalysisOrdered By: Chapincito Barraza on 69-26-9156Ueswtde casts LM Ql (Urine sed)0-8 [LPF][facility] CenterLymphocytes Auto (Bld) [#/Vol]Ordered By: Chapincito Barraza on 02-07-2022 Lymphocytes (Bld) [#/Vol]2.1 10*3/uL1.00-4.8[facility] Lymphocytes/100 WBC Auto (Bld)Ordered By: Chapincito Barraza on 02-07-2022 Lymphocytes/100 WBC (Bld)18.9 %[facility] Auto (RBC) [Entitic mass]Ordered By: Chapincito Barraza on 93-27-5151TTY (RBC) [Entitic mass]32.4 pg24.7-34.3FSelect Medical Cleveland Clinic Rehabilitation Hospital, AvonMCHC Auto (RBC) [Mass/Vol]Ordered By: Chapincito Barraza on 43-91-2859ENGF (RBC) [Mass/Vol]33.4 g/dL32.0-35.0[facility] CenterMCV Auto (RBC) [Entitic vol]Ordered By: Chapincito Barraza on 69-00-9235IPA (RBC) [Entitic vol]97.0 cT34-585TpajaxitjSouthern [facility] Medical Center Monocytes Auto (Bld) [#/Vol]Ordered By: Chapincito Barraza on 80-26-9893Vviflwqnm (Bld) [#/Vol]1.4 10*3/uL0.0-0.8[facility] CenterMonocytes/100 WBC Auto (Bld)Ordered By: Chapincito Barraza on 58-79-1235Weklairzb/100 WBC (Bld)12.2 %[facility] CenterNeutrophils Auto (Bld) [#/Vol]Ordered By: Chapincito Barraza on 13-98-9084Bnynczftdbx (Bld) [#/Vol]7.5 10*3/uL1.8-7.7FSelect Medical Cleveland Clinic Rehabilitation Hospital, AvonNeutrophils/100 WBC Auto (Bld)Ordered By: Chapincito Barraza on 02-07-2022 Neutrophils/100 WBC (Bld)66.6 %[facility] CenterNitrite Test strip Ql (U)Ordered By: Chapincito Barraza on 15-28-7113Qtghowc Ql (U)PositiveNegative [facility] CenterNo Panel InformationOrdered By: Chapincito Barraza on 22-68-4933TBZA Antigen (LFIA)[facility] CenterEstimated GFR ()> 60 mL/MinSouthern Ohio Medical CenterComment on above: GFR estimated reference range: According to KDOQI guidelines, <60 ml/min/1.73m2 is sufficient todiagnose a patient with chronic kidney disease.Pharmacy Creatinine Clearance (Chem70.36[facility] CenterNo Panel InformationOrdered By: Hussain Cat on 47-75-1014HBW Estimated GFR > 60[facility] CenterComment on above:GFR estimated reference range: According to KDOQI guidelines, <60 ml/min/1.73m2 is sufficient todiagnose a patient with chronic kidney disease.POC Estimated GFR Non- Uovz16DvslbloigSouthern [facility] Medical CenterPlatelet mean volume Auto (Bld) [Entitic vol]Ordered By: Chapincito Barraza on 37-98-6640Nzeyzgcc mean volume (Bld) [Entitic vol]8.5 fL6.3-10.7FSelect Medical Cleveland Clinic Rehabilitation Hospital, AvonPlatelet poor plasma international normalized ratio (INR) by coagulation assay (relatOrdered By: Chapincito Barraza on 58-90-9503XSV Coag (PPP) [Relative time]1.4 {INR}[facility] CenterComment on above:INR Therapeutic Range A) Pre- and Peroperative OAT started two weeks before surgery. NOT HIP SURGERY: 1.5 - 2.5 HIP SURGERY: 2 - 3 B) Primary and secondary prevention of venous THROMBOSIS: 2 - 3 C) Active venous thrombosis, pulmonary embolism and prevention of recurrent venous thrombosis: 2 - 3 D) Prevention of arterial thromboembolism including patients with mechanical heart valves: 3 - 4.5Platelets Auto (Bld) [#/Vol]Ordered By: Chapincito Barraza on 58-61-4719Eodnpqvwj (Bld) [#/Vol]273 10*3/uL 150-450[facility] CenterProtein Auto test strip (U) [Mass/Vol] Ordered By: Chapincito Barraza on 77-54-2160Aobcvaq (U) [Mass/Vol]NegativeNegative [facility] CenterRBC Auto (Bld) [#/Vol]Ordered By: Chapincito Barraza on 67-94-4125DJP (Bld) [#/Vol]4.21 10*6/uL3.60-5.00ProMed[facility] Memorial Hospitalerum or plasma calcium measurement (mass/volume)Ordered By: Chapincito Barraza on 78-21-5097Zhqjsdj [Mass/Vol]10.8 mg/dL8.2-10.2FSelect Medical [facility] Clinic [facility], [place] Serum or plasma chloride measurement (moles/volume)Ordered By: Chapincito Barraza on 87-19-0378Pcbkcmgj [Moles/Vol]105 mmol/K59-533QvknqjltdSouthern [facility] Medical Center Serum or plasma creatine kinase MB (CKMB)/total creatine kinase (CK) ratio by calculaOrdered By: Chapincito Barraza on 85-86-2583GA.MB Calc [Catalytic fraction]1.4 % 0.00-2.50ProMedica Memorial Hospitalerum or plasma creatine kinase MB measurement (mass/volume)Ordered By: Chapincito Barraza on 72-33-5237OY.MB [Mass/Vol]2.2 ng/mL0.6-6.3FAshtabula County Medical Centererum or plasma glucose measurement (mass/volume)Ordered By: Chapincito Barraza on 15-04-4972Bpkwayb [Mass/Vol] 83 mg/hN32-765QfagvsiouSouthern Ohio Medical CenterComment on above:ADA recommended reference range Random Glucose Reference Range is dependent on time and content of last meal. Glucose of more than 200 mg/dL in a nonstressed, ambulatory subject supports the diagnosis of Diabetes Mellitus.Serum or plasma potassium measurement (moles/volume)Ordered By: Chapincito Barraza on 60-52-5547Crlnlyrze [Moles/Vol]5.1 mmol/L3.5-5.1FAshtabula County Medical Centererum or plasma sodium measurement (moles/volume)Ordered By: Chapincito Barraza on 64-35-7010Bburku [Moles/Vol]139 mmol/L 136-146ProMedica Memorial Hospitalerum or plasma total carbon dioxide measurement (moles/volume)Ordered By: Chapincito Barraza on 68-39-4525HS8 [Moles/Vol] 22.4 mmol/L22.0-30.0ProMedica Memorial Hospitalerum or plasma urea nitrogen measurement (mass/volume)Ordered By: Chapincito Barraza on 57-13-0212Jqro nitrogen [Mass/Vol]22 mg/dL9-23ProMedica Memorial Hospitalpecific gravity Auto test strip (U) [Rel density]Ordered By: Chapincito Barraza on 57-46-5589Woghijyb gravity (U) [Rel density]1.0491.001-1.030[facility] Squamous epithelial cells detection in urine sediment by light microscopyOrdered By: Chapincito Barraza on 35-71-5121Keqoxfkziw cells.squamous LM Ql (Urine sed)5-9 [HPF] [facility] CenterTroponin I.cardiac [Mass/volume] in Serum or Plasma by High sensitivity methodOrdered By: Chapincito Barraza on 25-47-4975Nfcgjycp I.cardiac High sensitivity method [Mass/Vol]16 pg/mL0-15[facility] CenterUrine bacteria detection by automated methodOrdered By: Chapincito Barraza on 76-72-4562Djtyokdo Auto Ql (U)2+None SeenSouthern Ohio Medical Center Urine clarity by refractometry automatedOrdered By: Chapincito Barraza on 02-07-2022 Clarity Refractometry automated (U)ClearCleRiverview [facility] Institute Urine culture routineOrdered By: Chapincito Barraza on 70-28-7712Dfxpgwtt identified Cx Nom (U)Escherichia coliSouthern Ohio Medical CenterUrine glucose measurement by automated test strip (mass/volume)Ordered By: Chapincito Barraza on 09-35-0500Nsnjphj Auto test strip (U) [Mass/Vol]Normal mg/dLNormalSouthern Ohio Medical CenterUrine hemoglobin detection by automated test stripOrdered By: Chapincito Barraza on 05-34-6330Vuhrtwpjfn Auto test strip Ql (U)NegativeNegative [facility] CenterUrine leukocyte esterase detection by automated test stripOrdered By: Chapincito Barraza on 29-05-3281Sccjtekks esterase Auto test strip Ql (U)2+NegativeSouthern Ohio Medical CenterUrine sediment renal epithelial cell count by microscopy (number/high power field)Ordered By: Chapincito Barraza on 17-34-5116Cgeueimwcl cells.renal LM.HPF (Urine sed) [#/Area]1-2 [HPF] [facility] CenterUrobilinogen Auto test strip (U) [Mass/Vol] Ordered By: Chapincito Barraza on 91-66-4270Xbjmmbwqqljv (U) [Mass/Vol]Normal mg/dL NormalSouthern Ohio Medical CenterpH Auto test strip (U)Ordered By: Chapincito Barraza on 06-57-7833lV (U)5.0 [pH]5.0-9.0[facility] CenterCBC W Auto Differential panel (Bld)on 15-15-9308Yuf Immature Gran0.03 k/uL<0.10 k/uL [facility] HospitalBasophils (Bld) [#/Vol]0.04 10*3/uL<0.11 k/uLBlanchard Valley Health [facility] Basophils/100 WBC (Bld)0.5 %[facility] HospitalDifferential cell count method Nom (Bld)AutoCleveland ClinicEosinophils (Bld) [#/Vol]0.19 10*3/uL<0.46 k/uL [facility] HospitalEosinophils/100 WBC (Bld)2.5 %[facility] HospitalErythrocyte distribution width (RBC) [Ratio]13.7 %11.5 - 15.0 %[facility] HospitalHematocrit (Bld) [Volume fraction]42.6 %36.0 - 46.0 %[facility] HospitalHemoglobin (Bld) [Mass/Vol]13.8 g/dL11.5 - 15.5 g/dLBlanchard Valley Health System [facility] HospitalImmature Gran %0.4 %[facility] HospitalLymphocytes (Bld) [#/Vol]1.69 10*3/uL1.00 - 4.00 k/uLBlanchard Valley Health [facility] Lymphocytes/100 WBC (Bld)22.4 %[facility]ighH (RBC) [Entitic mass]32.1 pg 26.0 - 34.0 pgCleveland Deer River Health Care CenterMCHC (RBC) [Mass/Vol]32.4 g/dL30.5 - 36.0 g/dL [facility] GlenbeighV (RBC) [Entitic vol]99.1 fL80.0 - 100.0 fLCMagruder Memorial Hospital Monocytes (Bld) [#/Vol]0.92 10*3/uLHigh<0.87 k/uLYatahey ClinicMonocytes/100 WBC (Bld)12.2 %[facility] HospitalNeutrophils (Bld) [#/Vol]4.66 10*3/uL1.45 - 7.50 k/uLBlanchard Valley Health System [facility] HospitalNeutrophils/100 WBC (Bld)62.0 %[facility] HospitalNucleated RBC (Bld) [#/Vol]10*3/uL<0.01 k/uLBlanchard Valley Health System [facility] HospitalNucleated RBC/100 WBC (Bld) [Ratio]0.0 /100 WBCBlanchard Valley Health System [facility] HospitalPlatelet mean volume (Bld) [Entitic vol]10.5 fL9.0 - 12.7 fLCleveland ClinicPlatelets (Bld) [#/Vol]231 10*3/uL150 - 400 k/uL [facility] HospitalRBC (Bld) [#/Vol]4.30 10*6/uL3.90 - 5.20 m/uLBlanchard Valley Health System [facility] HospitalWBC (Bld) [#/Vol]7.53 10*3/uL3.70 - 11.00 k/uLBlanchard Valley Health System [facility] HospitalComprehensive metabolic 2000 panelon 61-79-2572Ztkmpeo [Mass/Vol]4.0 g/dL3.9 - 4.9 g/dL [facility] HospitalP [Catalytic activity/Vol]120 U/L34 - 123 U/LCleveland [facility] ALT [Catalytic activity/Vol]27 U/L7 - 38 U/LCleveland ClinicAnion gap [Moles/Vol]11 mmol/L9 - 18 mmol/LCleveland ClinicAST [Catalytic activity/Vol]25 U/L13 - 35 U/LCleveland ClinicBilirubin [Mass/Vol]0.6 mg/dL0.2 - 1.3 mg/dL [facility] HospitalCalcium [Mass/Vol]10.3 mg/dLHigh8.5 - 10.2 mg/dLBlanchard Valley Health System [facility] Chloride [Moles/Vol]109 mmol/LHigh97 - 105 mmol/LCleveland ClinicCO2 [Moles/Vol] 19 mmol/LLow22 - 30 mmol/LCleveland ClinicCreatinine [Mass/Vol]1.02 mg/dLHigh 0.58 - 0.96 mg/dLBlanchard Valley Health System [facility] HospitalEstimated Glomerular Filtration Rate61 mL/min/1.73m>=60 mL/min/1.73mCleveland ClinicGlucose [Mass/Vol]85 mg/dL74 - 99 mg/dLBlanchard Valley Health System [facility] HospitalPotassium [Moles/Vol]4.6 mmol/L3.7 - 5.1 mmol/LCleveland ClinicProtein [Mass/Vol]6.1 g/dLLow6.3 - 8.0 g/dLYatahey ClinicSodium [Moles/Vol]139 mmol/L136 - 144 mmol/LCleveland ClinicUrea nitrogen [Mass/Vol]26 mg/dLHigh7 - 21 mg/dLBlanchard Valley Health System Bl[facility] Valley HospitalES Westergren method (Bld) [Velocity]on [id number] (Bld) [Velocity]5 mm/h0 - 20 mm/hrMount St. Mary Hospitaloratory - Chemistry and Chemistry - challengeon [id number] [Mass/Vol]0.6 mg/dL<0.9 mg/dLKettering Health Prebletory - Hematology and Cell countson 12-09-2021 Complement C3 [Mass/Vol]154 mg/dL86 - 166 mg/dLBlanchard Valley Health System [facility] HospitalComplement C4 [Mass/Vol]35 mg/dL13 - 46 mg/dLBlanchard Valley Health System [facility] Valley HospitalCONVERTED SURGICAL PATHOLOGYon [id number] ADDENDAADDENDUM This addendum is issued to report the results of immunohistochemical stains. The original diagnoses remain unchanged. Immunohistochemistry for Helicobacter pylori performed on the gastric biopsy is negative (Block B1). Laboratory Developed Test (LDT) Disclaimer: Positive and negative controls stain appropriately. Performance characteristics of immunohistochemical, immunofluorescent and chromogenic in-situ hybridization tests have been determined by [facility]'s [facility] Pathology and Laboratory Medicine [place] ([facility]) in a manner consistent with CLIA requirements. One or more of these tests have not been cleared or approved by the FDA. [facility] is regulated under CLIA as qualified to perform high-complexity testing. These tests are used for clinical purposes. They should not be regarded as investigational or for research. [facility] HospitalCONVERTED CLINICAL HISTORYDIARRHEA, UNSPECIFIED TYPE [R19.7 (ICD-10-CM)]; EPIGASTRIC PAIN [R10.13 (ICD-10-CM)], LMP: NA A: R/O CELIAC B: R/O H PYLORI C-F: R/O MICROSCOPIC COLITIS, R/O UC [facility] HospitalCONVERTED COMPLETE REPORT ADDENDUM PRESENT Specimen originated from [facility] Specimen #: [id number] Submitting Physician: DIONE FRANCES MD, [facility] FINAL DIAGNOSIS 1. Duodenum, biopsy (A) - [...] in-situ hybridization tests have been determined by [facility]'s [facility] Pathology and Laboratory Medicine [place] ([facility]) in a manner consistent with CLIA requirements. One or more of these tests have not been cleared or approved by the FDA. [facility] is regulated under CLIA as qualified to [...] in one cassette. Gross examination performed at [facility], [address] [place] [address] TTN 09/12/2021 9:01:08 PM Date of Report: 09/13/2021 Date of Procedure: 09/12/2021 Date of Receipt: 09/12/2021 Submitted by: DIONE FRANCES MD, MPH Location: LN10 Diagnostic interpretation performed at [facility], [address] [place] [address]. [place] Number: [id number] ClinicCONVERTED FINAL DIAGNOSIS1. Duodenum, biopsy (A) - Duodenal mucosa with no significant diagnostic alteration. 2. Stomach, biopsy (B) - Chronic antral and fundic gastritis. - Immunohistochemistry for Helicobacter pylori will be reported in an addendum. 3. Colon, right, transverse, left, and rectum, biopsy (C-F) - Colonic mucosa with no significant diagnostic alteration. [facility] HospitalCONVERTED GROSS DESCRIPTIONA. Received in formalin are two pieces of [...] in one cassette. Gross examination performed at [facility], [address] [place] [address] TTN 09/12/2021 9:01:08 PM [facility] HospitalCONVERTED ORDERING PROVIDEROrdering Provider: DIONE FRANCES [facility] HamiltonVERTED SPECIMENSDUODENUM, BIOPSY GASTRIC, BIOPSY RIGHT COLON, BIOPSY TRANSVERSE COLON, BIOPSY LEFT COLON, BIOPSY RECTAL, BIOPSY [facility] PATHOLOGYon [id number] ADDENDUM PRESENT Specimen originated from [facility] Specimen #: [id number] Submitting Physician: DIONE FRANCES MD, MPH FINAL [...] in-situ hybridization tests have been determined by [facility]'s Ishmael Silva [facility] Pathology and Laboratory Medicine [place] ([facility]) in a manner consistent with CLIA requirements. One or more of these tests have not been cleared or approved by the FDA. [facility] is regulated under CLIA as qualified to [...] in one cassette. Gross examination performed at [facility], [address] [place] [address] TTN 09/12/2021 9:01:08 PM Date of Report: 09/13/2021 Date of Procedure: 09/12/2021 Date of Receipt: 09/12/2021 Submitted by: DIONE FRANCES MD, MPH Location: LN10 Diagnostic interpretation performed at [place] [address]. CLIA Number: [id number] ClinicCOLONOSCOPY DIAGNOSTICon [id number] ClinicEGD DIAGNOSTICon [id number] ClinicCBC (INCLUDES DIFF/PLT)on [id number] (Bld) [#/Vol]0.042 10*3/uL Normal0-200Quest DiagnosticsComment on above:Performed By: #### 6399, 7600, 00112, 28081 #### [facility] of [address], [address] [place] [address] Diesel Engine Erector: Jose John MDBasophils/100 WBC (Bld)0.7 %NormalQuest DiagnosticsComment on above:Performed By: #### 6399, 7600, 86026, 87820 #### [facility] of [address], [address] [place] [address] Diesel Engine Erector: Jose John MDEosinophils (Bld) [#/Vol]0.222 10*3/uLNormal 15-500Quest DiagnosticsComment on above:Performed By: #### 6399, 7600, 43101, 74914 #### [facility] of [address], [address] [place] [address] Diesel Engine Erector: Jose BLANCHARDosinophils/100 WBC (Bld)3.7 %NormalQuest DiagnosticsComment on above:Performed By: #### 6399, 7600, 53039, 96033 #### [facility] of [address], [address] [place] [address] Diesel Engine Erector: Jose John MDErythrocyte distribution width (RBC) [Ratio] 12.4 %Udlixj88.0-15.0Quest DiagnosticsComment on above:Performed By: #### 6399, 7600, 99934, 28935 #### [facility] of [address], [address] [place] [address] Diesel Engine Erector: Jose John MDHematocrit (Bld) [Volume fraction]46.1 %High 35.0-45.0Quest DiagnosticsComment on above:Performed By: #### 6399, 7600, 91540, 67981 #### [facility] of [address], [address] [place] [address] Diesel Engine Erector: Jose John MDHemoglobin (Bld) [Mass/Vol]16.0 g/dLHigh 11.7-15.5Quest DiagnosticsComment on above:Performed By: #### 6399, 7600, 17604, 46532 #### [facility] of [place] [address] Diesel Engine Erector: Jose John MDLymphocytes (Bld) [#/Vol]1.638 10*3/uLNormal 850-3900Quest DiagnosticsComment on above:Performed By: #### 6399, 7600, 42452, 06858 #### [facility] of [place] [address] Diesel Engine Erector: Jose John MDLymphocytes/100 WBC (Bld)27.3 %NormalQuest DiagnosticsComment on above:Performed By: #### 6399, 7600, 60591, 66324 #### [facility] of [place] [address] Diesel Engine Erector: Jose John MDMCH (RBC) [Entitic mass]31.6 ggRsuetk79.0-33.0 [facility] DiagnosticsComment on above:Performed By: #### 6399, 7600, 03631, 55433 #### [facility] of [place] [address] Diesel Engine Erector: Jose John MDMCHC (RBC) [Mass/Vol]34.7 g/bKFuhrmw51.0-36.0 Quest DiagnosticsComment on above:Performed By: #### 6399, 7600, 79236, 40970 #### [facility] of [place] [address] Diesel Engine Erector: Jose John MDMCV (RBC) [Entitic vol]91.1 kFYqkzre02.0-100.0 [facility] DiagnosticsComment on above:Performed By: #### 6399, 7600, 81382, 11372 #### [facility] of [address], [address] [place] [address] Diesel Engine Erector: Jose John MDMonocytes (Bld) [#/Vol]0.714 10*3/uLNormal 200-950Quest DiagnosticsComment on above:Performed By: #### 6399, 7600, 23405, 37132 #### [facility] of [address], [address] [place] [address] Diesel Engine Erector: Jose John MDMonocytes/100 WBC (Bld)11.9 %NormalQuest DiagnosticsComment on above:Performed By: #### 6399, 7600, 04637, 45116 #### [facility] of [address], [address] [place] [address] Diesel Engine Erector: Jose John MDNeutrophils (Bld) [#/Vol]3.384 10*3/uLNormal 1500-7800Quest DiagnosticsComment on above:Performed By: #### 6399, 7600, 80473, 17258 #### [facility] of [address], [address] [place] [address] Diesel Engine Erector: Jose John MDNeutrophils/100 WBC (Bld)56.4 %NormalQuest DiagnosticsComment on above:Performed By: #### 6399, 7600, 18363, 14541 #### [facility] of [address], [address] [place] [address] Diesel Engine Erector: Jose John MDPlatelet mean volume (Bld) [Entitic vol]10.9 fLNormal7.5-12.5Quest DiagnosticsComment on above:Performed By: #### 6399, 7600, 81597, 31036 #### [facility] of [address], [address] [place] [address] Diesel Engine Erector: Jose John MDPlatelets (Bld) [#/Vol]265 10*3/uLNormal 140-400Quest DiagnosticsComment on above:Performed By: #### 6399, 7600, 48266, 10127 #### [facility] of [address], [address] [place] [address] Diesel Engine Erector: Jose John [facility] ([facility]) [#/Vol]5.06 10*6/uLNormal3.80-5.10 Quest DiagnosticsComment on above:Performed By: #### 6399, 7600, 10018, 96278 #### [facility] of [address], [address] [place] [address] Diesel Engine Erector: Jose John MDMONTEFIORE HEALTH SYSTEM ([facility]) [#/Vol]6.0 10*3/uLNormal3.8-10.8 Quest DiagnosticsComment on above:Performed By: #### 6399, 7600, 41877, 35009 #### [facility] of [address], [address] [place] [address] Diesel Engine Erector: Jose John MDCOMPREHENSIVE METABOLIC PANELon 09-10-2021 Albumin [Mass/Vol]4.5 g/dLNormal3.6-5.1Quest DiagnosticsComment on above: Performed By: #### 6399, 7600, 83889, 61220 #### [facility] of [address], [address] [place] [address] Diesel Engine Erector: Jose John MDAlbumin/Globulin [Mass ratio]2.5 {ratio}Normal 1.0-2.5Quest DiagnosticsComment on above:Performed By: #### 6399, 7600, 23210, 86397 #### [facility] of [address], [address] [place] [address] Diesel Engine Erector: Jose John MDALP [Catalytic activity/Vol]121 U/LNormal 37-153Quest DiagnosticsComment on above:Performed By: #### 6399, 7600, 25389, 84343 #### [facility] of [address], [address] [place], [place] [address] Diesel Engine Erector: Jose John MDALT [Catalytic activity/Vol]23 U/LNormal6-29 Quest DiagnosticsComment on above:Performed By: #### 6399, 7600, 92857, 81374 #### [facility] of [address], [address] [place] [address] Diesel Engine Erector: Jose John MDAST [Catalytic activity/Vol]21 U/XTvycmz12-33 Quest DiagnosticsComment on above:Performed By: #### 6399, 7600, 70827, 69738 #### [facility] of [address], [address] [place] [address] Diesel Engine Erector: Jose John MDBilirubin [Mass/Vol]0.7 mg/dLNormal0.2-1.2 Quest DiagnosticsComment on above:Performed By: #### 6399, 7600, 15154, 18669 #### [facility] of [address], [address] [place] [address] Diesel Engine Erector: Jose John MDBUN/CREATININE RATIONOT APPLICABLENormal6-22 Quest DiagnosticsComment on above:Performed By: #### 6399, 7600, 18230, 12355 #### [facility] of [address], [address] [place] [address] Diesel Engine Erector: Jose John MDCalcium [Mass/Vol]10.9 mg/dLHigh8.6-10.4Quest DiagnosticsComment on above:Performed By: #### 6399, 7600, 85313, 41699 #### [facility] of [address], [address] [place] [address] Diesel Engine Erector: Jose John MDChloride [Moles/Vol]106 mmol/EMpiqtu60-337 Quest DiagnosticsComment on above:Performed By: #### 6399, 7600, 82083, 85454 #### [facility] of [address], [address] [place] [address] Diesel Engine Erector: Jose John MDCO2 [Moles/Vol]28 mmol/BOrhjzd68-86Ngick DiagnosticsComment on above:Performed By: #### 6399, 7600, 70456, 61611 #### [facility] [place] [address] Diesel Engine Erector: Jose ACOSTAreatinine [Mass/Vol]0.99 mg/dLNormal0.50-0.99 Quest DiagnosticsComment on above:Result Comment: For patients >49 years of age, the reference limit for Creatinine is approximately 13% higher for people identified as -[place].Performed By: #### 6399, 7600, 66604, 68852 #### [facility] [place] [address] Diesel Engine Erector: Jose John MDeGFR NON-AFR. KIFSNONC01 mL/min/1.89k6Bjmebk> OR = 60Quest DiagnosticsComment on above:Performed By: #### 6399, 7600, 81566, 55154 #### [facility] [place] [address] Diesel Engine Erector: Jose John MDGFR/1.73 sq M.predicted among blacks MDRD (S/P/Bld) [Vol rate/Area]69 mL/min/{1.73_m2}Normal> OR = 60[facility] Comment on above:Performed By: #### 6399, 7600, 87852, 05756 #### [facility] [place] [address] Diesel Engine Erector: Jose John MDGlobulin (S) [Mass/Vol]1.8 g/dLLow1.9-3.7Quest DiagnosticsComment on above:Performed By: #### 6399, 7600, 05620, 22025 #### [facility] [place] [address] Diesel Engine Erector: Jose John MDGlucose [Mass/Vol]77 mg/xMUhfqia06-76Ihxmf DiagnosticsComment on above:Result Comment: Fasting reference intervalPerformed By: #### 6399, 7600, 39985, 42386 #### [facility] of [place] [address] Diesel Engine Erector: Jose John MDPotassium [Moles/Vol]5.0 mmol/LNormal3.5-5.3 Quest DiagnosticsComment on above:Performed By: #### 6399, 7600, 53692, 84278 #### [facility] of [address], [address] [place] [address] Diesel Engine Erector: Jose John MDProtein [Mass/Vol]6.3 g/dLNormal6.1-8.1Quest DiagnosticsComment on above:Performed By: #### 6399, 7600, 49187, 84284 #### [facility] of [place] [address] Diesel Engine Erector: Jose John MDSodium [Moles/Vol]139 mmol/FDifwza373-161Bnwwi DiagnosticsComment on above:Performed By: #### 6399, 7600, 02009, 65862 #### [facility] of [place] [address] Diesel Engine Erector: Jose John MDUrea nitrogen [Mass/Vol]25 mg/dLNormal7-25 Quest DiagnosticsComment on above:Performed By: #### 6399, 7600, 95346, 91965 #### [facility] of [place] [address] Diesel Engine Erector: Jose John MDLIPID PANEL, STANDARDon 19-28-2578Lgjankzuakr [Mass/Vol]129 mg/dLNormal<200Quest DiagnosticsComment on above:Order Comment: FASTING:YES FASTING: YESPerformed By: #### 6399, 7600, 02202, 62964 #### [facility] of [place] [address] Diesel Engine Erector: Jose ACOSTAholesterol in HDL [Mass/Vol]49 mg/dLLow> OR = 50Quest DiagnosticsComment on above:Order Comment: FASTING:YES FASTING: YESPerformed By: #### 6399, 7600, 33238, 71518 #### [facility] [address], [address] [place] [address] Diesel Engine Erector: Jose ACOSTAholesterol in LDL [Mass/Vol]57 mg/dLNormal Quest DiagnosticsComment on above:Order Comment: FASTING:YES FASTING: YESResult Comment: Reference range: <100 Desirable range <100 mg/dL for primary prevention; <70 mg/dL for patients with CHD or diabetic patients with > or = 2 CHD risk factors. LDL-C is now calculated using the Rashida calculation, which is a validated novel method providing better accuracy than the Friedewald equation in the estimation of LDL-C. Patrick SS et al. TORIN. 2013;310(19): 8845-8650 (http://education.Apps4All.First To File/faq/ZHK013)Performed By: #### 5999, 7600, 75098, 49953 #### [facility] [address], [address] [place] [address] Diesel Engine Erector: Jose Morrisstsamir.total/Cholesterol in HDL [Mass ratio]2.6 {ratio}Normal<5.0Quest DiagnosticsComment on above:Order Comment: FASTING:YES FASTING: YESPerformed By: #### 6399, 7600, 14333, 19023 #### [facility] [address], [address] [place], [place] [address] Diesel Engine Erector: Jose STYLES HDL PYHPPGADQXB21 mg/dL (calc)Normal<130 Quest DiagnosticsComment on above:Order Comment: FASTING:YES FASTING: YESResult Comment: For patients with diabetes plus 1 major ASCVD risk factor, treating to a non-HDL-C goal of <100 mg/dL (LDL-C of <70 mg/dL) is considered a therapeutic option.Performed By: #### 6399, 7600, 86931, 53361 #### [facility] [address], [address] [place] [address] Diesel Engine Erector: Jose John MDTriglyceride [Mass/Vol]155 mg/dLHigh<150Quest DiagnosticsComment on above:Order Comment: FASTING:YES FASTING: YESPerformed By: #### 6399, 7600, 98567, 60301 #### [facility] [address], [address] [place] [address] Diesel Engine Erector: Jose John MDWAYS[facility]+FREE T4on 01-17-0694Uyob T4 [Mass/Vol]1.2 ng/dLNormal0.8-1.8Quest DiagnosticsComment on above:Performed By: #### 6399, 7600, 71020, 80341 #### [facility] [address], [address] [place] [address] Diesel Engine Erector: Jose John MDWAYSIDE [facility] Qn4.41 m[IU]/LNormal0.40-4.50Quest DiagnosticsComment on above:Performed By: #### 6399, 7600, 76798, 23260 #### [facility] [address], [address] [place] [address] Diesel Engine Erector: Jose John MDPatient Letter FTon [id number] Letter [facility] April 29, 2021 JESUS WOLF [address] [place] [address] JESUS WOLF 1955 Dear Jesus, This is a SECOND ATTEMPT to remind you that you are due for an appointment with [facility] [employer] [facility]. Please contact our office at [phone] to schedule an appointment at your earliest convenience. Thank you, [facility] [phone] From: Apryl Cobb To: [facility] - Reminders/Recalls; Sent: 11/14/2020 13:49:43 EDT Show up: 03/17/2021 13:49:00 EDT Subject: Ambulatory Reminder Due Date/Time: 04/28/2021 13:48:00 EDT Reminder/Recall haydee 5 year recall 04/28/2021 first recall letter second recall letterUK HealthcarePatient Letter FTon [id number] Letter [facility] March 27, 2021 JESUS WOLF [address] [place] [address] JESUS WOLF 1955 Dear Jesus, This is a reminder that you are due for an appointment with [facility]. Please contact our office at [phone] to schedule an appointment at your earliest convenience. Thank you, [facility] NortheastIMAGE-GUIDED PAP W/AGE BASED SCR PROTOCOLSon [id number] DiagnosticsComment on above:Result Comment: This order for age-based cervical cancer and STI screening follows ACOG guidelines(PB 168, 140, CLP405). See individual assays for performing site location.Performed By: #### 28976, 40277 #### [facility]-[address] [place] [address] Diesel Engine Erector: Jose John MDResult Comment: EXPLANATORY NOTE: The Pap is a screening test for cervical cancer. It is not a diagnostic test and is subject to false negative and false positive results. It is most reliable when a satisfactory sample, regularly obtained, is submitted with relevant clinical findings and history, and when the Pap result is evaluated along with historic and current clinical information.THINPREP TIS PAP AND HPV mRNA E6/E7 REFLEX HPV 16,18/45on 21-71-1540KZWINQDQ INFORMATION:NormalQuest DiagnosticsComment on above:Result Comment: None givenPerformed By: #### 89939, 64084 #### [facility]-[address] [place] [place] [address] Diesel Engine Erector: Jose John MDCOMMENT:NormalQuest DiagnosticsComment on above:Result Comment: This Pap test has been evaluated with computer assisted technology. Parabasal cells in smears that lack maturation due to atrophy or other hormonal reasons cannot be differentiated from transformation zone cells. Accordingly, presence or absence of endocervical or transformation zone components cannot be reported in this patient.Performed By: #### 40727, 23331 #### [facility]-[address], [address] [place] [address] Diesel Engine Erector: Jose John MDCYTOTECHNOLOGIST:NormalCambridge [facility] Capital [facility] Comment on above:Result Comment: ML, CT(ASCP) CT screening location: [facility] [place] [address].Performed By: #### 28899, 32163 #### [facility]-[address], [address] [place] [address] Diesel Engine Erector: Jose John MDHPV mRNA E6/E7Not detectedNormalNot Detected Quest DiagnosticsComment on above:Result Comment: Methodology: Rn Oncology Clinical- Mediated Amplification This assay detects E6/E7 viral messenger RNA (mRNA) from 14 high-risk HPV types (16,18,31,33,35,39,45,51,52,56,58,59,66,68). The analytical performance characteristics of this assay have been determined by [employer] The modifications have not been cleared or approved by the FDA. This assay has been validated pursuant to the CLIA regulations and is used for clinical purposes. For additional information, please refer to http://education.Ingenico.First To File/faq/NTN154n7 (This link if provided for information/ educational purposes only.) NO COLLECTION DATE RECEIVED. WE HAVE USED THE DATE THE SPECIMEN WAS RECEIVED BY THIS LABORATORY THE COLLECTION DATE. IF THIS IS INCORRECT, PLEASE CONTACT CLIENT SERVICES. PHONE NUMBER: [phone] By: #### 74451, 09070 #### [facility]-[address], [address] [place] [address] Diesel Engine Erector: Jose John MDINTERPRETATION/RESULT:NormalCambridge Innovation Capital [facility] Comment on above:Result Comment: Negative for intraepithelial lesion or malignancy. Atrophic pattern; predominantly parabasal cellsPerformed By: #### 86484, 75081 #### [facility]-[address], [address] [place] [address] Diesel Engine Erector: Jose John MDLMP:NormalQuest DiagnosticsComment on above: Result Comment: None givenPerformed By: #### 96299, 32882 #### [facility]-[address], [address] [place] [address] Diesel Engine Erector: Jose ALBERT. BX:NormalQuest DiagnosticsComment on above:Result Comment: None givenPerformed By: #### 14952, 40103 #### [facility]-[address], [address] [place] [address] Diesel Engine Erector: Jose ALBERT. PAP:NormalQuest DiagnosticsComment on above:Result Comment: None givenPerformed By: #### 15041, 94238 #### [facility]-[address], [address] [place], [place] [id number] Diesel Engine Erector: Jose ARMSTRONGOURCE:NormalQuest DiagnosticsComment on above:Result Comment: None givenPerformed By: #### 72326, 33339 #### [facility]-[address], [address] [place] [address] Diesel Engine Erector: Jose ARMSTRONGTATEMENT OF ADEQUACY:NormalQuest [facility]ostics Comment on above:Result Comment: SATISFACTORY FOR EVALUATIONPerformed By: #### 69209, 47927 #### [facility]-[address], [address] [place] [phone] Diesel Engine Erector: Jose LEER Pelvis and Hip - right AP and Lateral frog on 11-31-3973TEIVCAXRVJ: EXPECTED POSTOPERATIVE APPEARANCE Implant Polisher: MILLER Transcribe Date/Time: Jan 04 2021 1:47P Dictated by : CARLOS LÓPEZ MD This examination was interpreted and the report reviewed and electronically signed by: CARLOS LÓPEZ MD on Jan 04 2021 1:47PM [facility] DIVISION OF RADIOLOGY* * *Final Report* * * DATE OF [...] the lumbar spine. No other significant abnormality. [facility] [place] [facility] * * *Final Report* * [...] the lumbar spine. No other significant abnormality. IMPRESSION IMPRESSION: EXPECTED POSTOPERATIVE APPEARANCE Implant Polisher: MILLER Transcribe Date/Time: Jan 04 2021 1:47P Dictated by : CARLOS LÓPEZ MD This examination was interpreted and the report reviewed and electronically signed by: CARLOS LÓPEZ MD on Jan 04 2021 1:47PM EST [facility] ClinicRadiology Study observation (narrative)[facility]appW[facility] CenterXR Pelvis and Hip - right AP and Lateral frogOrdered By: Ccf Provider on 01-04-2021 [facility] - right AP and Lateral frogon 11-29-2020 IMPRESSION: SEVERE RIGHT HIP DEGENERATIVE CHANGE Implant Polisher: MILLER Transcribe Date/Time: Nov 29 2020 11:50A Dictated by : MADISON SMITH MD This examination was interpreted and the report reviewed and electronically signed by: MADISON SMITH MD on Nov 29 2020 11:51AM [facility] DIVISION OF RADIOLOGY* * *Final Report* * * DATE OF [...] degenerative change lower lumbar spine. DIVISION [facility] [place] [facility]2020 * * *Final Report* * [...] IMPRESSION IMPRESSION: SEVERE RIGHT HIP DEGENERATIVE CHANGE Implant Polisher: MILLER Transcribe Date/Time: Nov 29 2020 11:50A Dictated by : MADISON SMITH MD This examination was interpreted and the report reviewed and electronically signed by: MADISON SMITH MD on Nov 29 2020 11:51AM EST [facility] HospitalRadiology Study observation (narrative)[facility] Pelvis and Hip - right AP and Lateral frogOrdered By: Ccf Provider on 11-29-2020 [facility] HospitalUS ABD RT UPPER QUADRANTon [id number] ClinicXR Shoulder - left 3 Viewson [id number]: Mild degenerative change left shoulder Implant Polisher: MILLER Transcribe Date/Time: Apr 26 2020 9:31A Dictated by : CHIKIS GARCIA MD This examination was interpreted and the report reviewed and electronically signed by: CHIKIS GARCIA MD on Apr 26 2020 9:32AM EST DIVISION OF RADIOLOGY* * *Final Report* * * DATE OF [...] dislocation. Acromiohumeral interval is maintained. DIVISION OF RAD[facility]OLOG[facility] [place] - 04/26/2020 * * *Final Report* * [...] IMPRESSION IMPRESSION: Mild degenerative change left shoulder [facility] Transcribe Date/Time: Apr 26 2020 9:31A Dictated by : CHIKIS GARCIA MD This examination was interpreted and the report reviewed and electronically signed by: CHIKIS GARCIA MD on Apr 26 2020 9:32AM EST [facility] HospitalRadiology Study observation (narrative)[facility]XR Shoulder - left 3 ViewsOrdered By: Ccf Provider on [id number] Prothrombin Timeon [id number] Coag RelTime (PPP)1.47 {INR}High0.90-1.10EMH HealthcareComment on above:Performed By: #### [id number] #### [facility] [address] [place] [address], [place] [address]Qlwdbgnkxxa time (PT) Coag time (PPP)16.8 sHigh9.7-12.7EMH HealthcareComment on above:Result Comment: PLEASE NOTE NEW REFERENCE RANGE EFFECTIVE 2018Performed By: #### [id number] #### [facility] [address] [place] [address]Lcwbwsljniv Timeon [id number] Coag RelTime (PPP)2.23 {INR} High0.90-1.10EMH HealthcareComment on above:Performed By: #### [id number] #### [facility] [address] [place] [address], [place] [address]Xavlgucctrq time (PT) Coag time (PPP)25.6 sHigh9.7-12.7EMH HealthcareComment on above:Result Comment: PLEASE NOTE NEW REFERENCE RANGE EFFECTIVE 2018Performed By: #### [id number] #### [facility] [address] [place] [address] Vital Signs Date TimeVital SignValuePerforming DdukfjvdeCoeixecj65-20-1723 08:44-0400Body bisjtn808.2 cmPacc 2 Work Phone: [facility]08-04-2025 08:44-0400Body mass index (BMI) [Ratio]41.43 kg/m2Pacc 2 Work Phone: [facility]08-04-2025 08:44-0400Body temperature 98.2 [degF]Pacc 2 Work Phone: [facility]08-04-2025 08:44-0400Body xwcdhy598 kg Pacc 2 Work Phone: [facility] Valley HospitalComment on above:with iitm23-24-1410 08:44-0400Diastolic blood sqmzeeer06 mm[Hg]Pacc 2 Work Phone: [facility]08-04-2025 08:44-0400Heart rate75 /min Pacc 2 Work Phone: [facility]08-04-2025 08:44-0400Respiratory rate 18 /minPacc 2 Work Phone: [facility]08-04-2025 08:44-1924KyS1% (BldA) [Mass fraction]97 %Pacc 2 Work Phone: [facility] HospitalComment on above:[id number] 08:44-0400Systolic blood alpvnpcx375 mm[Hg]Pacc 2 Work Phone: [facility]06-13-2025 08:39-0400Body oulzit963.2 cmAbisai Barraza RIGGING MAN-GUIDE EXCURSION Work Phone: [facility]06-13-2025 08:39-0400 Diastolic blood wluleloy44 mm[Hg]Abisai Barraza R[employer]GING [employer]GUIDE EXCURSION Work Phone: [facility]06-13-2025 08:39-0400 Systolic blood knfirvtc629 mm[Hg]Abisai Barraza RIGGING MAN[employer]GUIDE EXCURSION Work Phone: [facility]06-12-2025 09:08-0400 Body mass index (BMI) [Ratio]41.79 kg/m2Rheu Digna Work Phone: [facility]06-12-2025 09:08-0400Body temperature 97 [degF]Rheu Digna Work Phone: [facility]06-12-2025 09:08-0400Body cfyjxu191.67 kgRheu Digna Work Phone: [facility]06-12-2025 09:08-0400Diastolic blood zxqngxix37 mm[Hg]Rheu Digna Work Phone: [facility]06-12-2025 09:08-0400Heart rate77 /min Rheu Digna Work Phone: [facility]06-12-2025 09:08-0400Systolic blood mrnqlafg956 mm[Hg]Rheu Digna Work Phone: [facility]06-11-2025 09:03-0400Heart rate77 /min Curtis Ogden APRN.GUIDE EXCURSION Work Phone: [facility]06-11-2025 09:03-0400Respiratory rate 17 /minCurtis Ogden APRN.GUIDE EXCURSION Work Phone: [facility]06-11-2025 09:03-3935TwN8% (BldA) [Mass fraction]97 %Curtis Ogden APRN.GUIDE EXCURSION Work Phone: [facility]06-04-2025 09:12-0400Heart rate97 /min Curtis Ogden APRN.GUIDE EXCURSION Work Phone: [facility]06-04-2025 09:12-0400Respiratory rate 18 /minCurtis Ogden APRN.GUIDE EXCURSION Work Phone: [facility]06-04-2025 09:12-4302RuB5% (BldA) [Mass fraction]97 %Curtis Ogden APRN.GUIDE EXCURSION Work Phone: [facility]05-15-2025 09:37-0400Body hhbvwo150.2 cmWojciech Treviño DO Work Phone: [facility]05-15-2025 09:37-0400Body mass index (BMI) [Ratio]41.34 kg/p4YcfgecWojciech Lobatong DO Work Phone: [facility]05-15-2025 09:37-0400Body iljnitcszyu59.49 [degF]Wojciech Treviño DO Work Phone: [facility]05-15-2025 09:37-0400Body ioyrch312.75 kgWojciech Treviño DO Work Phone: [facility]05-15-2025 09:37-0400Diastolic blood scnyqjxa89 mm[Hg]Wojciech Lobatong DO Work Phone: [facility]05-15-2025 09:37-0400Heart rate 75 /minDbipinis Maxlong DO Work Phone: [facility]05-15-2025 09:37-0400 Respiratory rate18 /Radhais Maxlong DO Work Phone: [facility]05-15-2025 09:37-3738WaS6% (BldA) [Mass fraction]98 %Wojciech Treviño DO Work Phone: [facility]05-15-2025 09:37-0400Systolic blood cmtfniin832 mm[Hg]Wojciech Treviño DO Work Phone: [facility]05-08-2025 08:14-0400Body ucgouklouzt88.3 [degF]Will Greer MD Work Phone: [facility]05-08-2025 08:14-0400Diastolic blood mcbclipi93 mm[Hg]Will Greer MD Work Phone: [facility]05-08-2025 08:14-0400Heart rate78 /min Will Greer MD Work Phone: [facility]05-08-2025 08:14-0400Respiratory rate 20 /minWill Greer MD Work Phone: [phone]05-08-2025 08:14-7911JwR9% (BldA) [Mass fraction]96 %Will Greer MD Work Phone: [facility] HospitalComment on above:[id number] 08:14-0400Systolic blood osxrhlad199 mm[Hg]Will Greer MD Work Phone: [facility]05-05-2025 13:40-0400Body onmhuv452.2 cmDenrebecca Santanalong DO Work Phone: [facility]05-05-2025 13:40-0400Body mass index (BMI) [Ratio]40.77 kg/p0Byvfml Furlong DO Work Phone: [facility]05-05-2025 13:40-0400Body pnmebhvhtez32.4 [degF]Wojciechrebecca Santanalong DO Work Phone: [facility]05-05-2025 13:40-0400Body zrsyje847.12 kgDennis Maxlong DO Work Phone: [facility]05-05-2025 13:40-0400Diastolic blood vcijakrm07 mm[Hg]Wojciech Santanalong DO Work Phone: [facility]05-05-2025 13:40-0400Heart rate 77 /Radhais Maxlong DO Work Phone: [facility]05-05-2025 13:40-0400 Respiratory rate18 /minDbipinis Maxlong DO Work Phone: [facility]05-05-2025 13:40-3452WvL5% (BldA) [Mass fraction]92 %Wojciech Santanalong DO Work Phone: [facility]05-05-2025 13:40-0400Systolic blood tcuybbki680 mm[Hg]Wojciech Santanalong DO Work Phone: [facility]04-23-2025 10:56-0400Body ppxjyu603.2 cmYuriy Conway MD Work Phone: [facility]04-23-2025 10:56-0400 Body mass index (BMI) [Ratio]40.19 kg/x9LauhloYuriy Conway MD Work Phone: [facility]04-23-2025 10:56-0400 Body sherkj454.39 kgYuriy Conway MD Work Phone: [facility]04-23-2025 10:56-0400 Diastolic blood wbkcvxce78 mm[Hg]Yuriy Conway MD Work Phone: [facility]04-23-2025 10:56-0400 Heart rate76 /minYuryi Conway MD Work Phone: [facility]04-23-2025 10:56-0400 Systolic blood tysqvsbd169 mm[Hg]Yuriy Conway MD Work Phone: [facility]04-17-2025 11:35-0400 Diastolic blood ywfugsma57 mm[Hg]Rheu Digna Work Phone: [facility]04-17-2025 11:35-0400Heart rate74 /min Rheu Digna Work Phone: [facility]04-17-2025 11:35-7852RrV9% (BldA) [Mass fraction]97 %Rheu Digna Work Phone: [facility]04-17-2025 11:35-0400Systolic blood dpulqihx937 mm[Hg]Rheu Digna Work Phone: [phone]04-17-2025 09:04-0400Body mass index (BMI) [Ratio]42.05 kg/m2Rheu Digna Work Phone: [phone]04-17-2025 09:04-0400Body temperature 97 [degF]Rheu Digna Work Phone: [facility]04-17-2025 09:04-0400Body ikvans030.4 kgRheu Digna Work Phone: [facility]04-14-2025 13:52-0400Body .2 cmDennis Furlong DO [facility]: [facility]-14-2025 13:52-0400Body mass index (BMI) [Ratio]40.27 kg/b5Lyfguh Furlong DO Work Phone: [facility] [employer] Vvwcgc26-67-1725 13:52-0400Body qkwhxqjlsoh37.7 [degF]Wojciech Treviño DO Work Phone: [facility] [employer] Epiveh47-42-6048 13:52-0400Body .67 kgWojciech Treviño DO Work Phone: [facility] [employer] Vxbqzf74-77-5934 13:52-0400Diastolic blood messkgig86 mm[Hg]Wojciech Treviño DO Work Phone: [facility] [employer] Qecuun96-62-3990 13:52-0400Heart rate 77 /Reyna Treviño DO Work Phone: [facility]04-14-2025 13:52-0400 Respiratory rate20 /Reyna Treviño DO Work Phone: [facility]04-14-2025 13:52-6011XlU8% (BldA) [Mass fraction]96 %Wojciech Treviño DO Work Phone: [facility] [employer] Ilqzdr53-90-7508 13:52-0400Systolic blood jacapesj354 mm[Hg]Wojciech Treviño DO Work Phone: [facility]04-02-2025 08:48-0400Body syhisz582.4 cmEmibrook Murphy DO Work Phone: [facility]04-02-2025 08:48-0400Body mass index (BMI) [Ratio]42.78 kg/g9Nrfhfrashard Murphy DO Work Phone: [facility]04-02-2025 08:48-0400Body temperature 97.39 [degF]Nadege Murphy DO Work Phone: [facility]04-02-2025 08:48-0400Body raaazs129.4 kgEmrashard Murphy DO Work Phone: [facility]04-02-2025 08:48-0400Diastolic blood mm[Hg]Nadege Murphy DO Work Phone: [facility]04-02-2025 08:48-0400Heart rate80 /min Nadege Murphy DO Work Phone: [facility]04-02-2025 08:48-0400Systolic blood nomihaqw885 mm[Hg]Nadege Murphy DO Work Phone: [facility]04-01-2025 09:14-0400Body mass index (BMI) [Ratio]42.49 kg/h6MmumxbRadu Salazar MD Work Phone: [facility]04-01-2025 09:14-0400Body vnjsyd961.6 kgGejoselyn Salazar MD Work Phone: [facility]04-01-2025 09:14-0400Diastolic blood oqwarkor15 mm[Hg]Radu Salazar MD Work Phone: [facility]04-01-2025 09:14-0400Heart rate81 /min Radu Salazar MD Work Phone: [facility]04-01-2025 09:14-0400Systolic blood bvemqkoc585 mm[Hg]Radu Salazar MD Work Phone: [facility]02-25-2025 16:10-0500Body aswvov453.2 cmWojciech Lobatong DO Work Phone: [facility]02-25-2025 16:10-0500Body mass index (BMI) [Ratio]41.1 kg/i9OsktfaWojciech Santanalong DO Work Phone: [facility] [employer] Pctews80-91-3254 16:10-0500Body jeehppwqsyw03.81 [degF]Wojciech Lobatong DO Work Phone: [facility]02-25-2025 16:10-0500Body wiymjm981.02 kgWojciech Lobatong DO Work Phone: [facility]02-25-2025 16:10-0500Diastolic blood uekmbcbi92 mm[Hg]Wojciech Furlong DO Work Phone: [facility]02-25-2025 16:10-0500Heart rate 79 /minDennis Furlong DO Work Phone: [facility]02-25-2025 16:10-0500 Respiratory rate20 /minDennis Furlong DO Work Phone: [facility]02-25-2025 16:10-9139YlI1% (BldA) [Mass fraction]98 %Wojciech Furlong DO Work Phone: [facility]02-25-2025 16:10-0500Systolic blood mm[Hg]Wojciech Furlong DO Work Phone: [facility]02-20-2025 09:00-0500Body mass index (BMI) [Ratio]42.27 kg/m2Rheu Digna Work Phone: [facility]02-20-2025 09:00-0500Body temperature 96.69 [degF]Rheu Digna Work Phone: [phone]02-20-2025 09:00-0500Body irkuib306 kg Rheu Digna Work Phone: [facility]02-20-2025 09:00-0500Diastolic blood aaohegoy31 mm[Hg]Rheu Digna Work Phone: [phone]02-20-2025 09:00-0500Heart rate79 /min Rheu Digna Work Phone: [facility]02-20-2025 09:00-0500Systolic blood wetuiskt781 mm[Hg]Rheu Digna Work Phone: [facility]02-03-2025 10:29-0500Diastolic blood ecnlgbhj44 mm[Hg]Wojciech Furlong DO Work Phone: [facility]02-03-2025 10:29-0500 Heart rate76 /minDennis Furlong DO Work Phone: [facility]02-03-2025 10:29-0500 Respiratory rate16 /minDbipinis Furlong DO Work Phone: [phone]02-03-2025 10:29-0500 SaO2% (BldA) [Mass fraction]96 %Wojciech Furlong DO Work Phone: [phone]02-03-2025 10:29-0500 Systolic blood vilnhbcg517 mm[Hg]Wojciech Santanalong DO Work Phone: [phone]02-03-2025 09:55-0500 Inhaled oxygen flow rate5 L/Radhais Furlong DO Work Phone: [phone]02-03-2025 08:23-0500 Body yvbrgf278.18 cmWojciech Santanalong DO Work Phone: [phone]02-03-2025 08:23-0500 Body vtzdnbxlviu96.5 [degF]Wojciech Santanalong DO Work Phone: [phone]02-03-2025 08:23-0500 Body jabpjq352.3 kgWojciech Santanalong DO Work Phone: [phone]12-26-2024 12:49-0500 Diastolic blood mm[Hg]Rheu Digna Work Phone: [facility]12-26-2024 12:49-0500Heart rate80 /min Rheu Digna Work Phone: [facility]12-26-2024 12:49-0500Respiratory rate 16 /minRheu Digna Work Phone: [facility]12-26-2024 12:49-4027KtK5% (BldA) [Mass fraction]98 %Rheu Digna Work Phone: [facility]12-26-2024 12:49-0500Systolic blood owgltzpe939 mm[Hg]Rena Sawyer Work Phone: [facility]12-26-2024 09:44-0500Body mass index (BMI) [Ratio]42.23 kg/m2Rhnatasha Sawyer Work Phone: [facility]12-26-2024 09:44-0500Body egcihd330.9 kgRhnatasha Sawyer Work Phone: [facility]12-20-2024 15:01-0500Body yjyjzb215.2 cmYuriy Conway MD Work Phone: [facility]12-20-2024 15:01-0500 Body mass index (BMI) [Ratio]39.97 kg/h7CftcjuYuriy Conway MD Work Phone: [address] [place], [place] [address]12-20-2024 15:01-0500 Body .76 kgYuriy Conway MD Work Phone: [phone]12-20-2024 15:01-0500 Diastolic blood xtxdbalp45 mm[Hg]Yuriy Conway MD Work Phone: [facility]12-20-2024 15:01-0500 Heart rate81 /minYuriy Conway MD Work Phone: [facility]12-20-2024 15:01-0500 Systolic blood ykujqwqi808 mm[Hg]Yuriy Conway MD Work Phone: [facility]11-25-2024 13:27-0500 Body koyliz307.2 cmDenrebecca Furlong DO Work Phone: [facility] Efhjib70-20-1479 13:27-0500Body mass index (BMI) [Ratio]40.91 kg/m0Dcedpx Furlong DO Work Phone: [facility] Yssxzv06-71-5889 13:27-0500Body qhctbkwowmo87.59 [degF]Wojciech Furlong DO Work Phone: [facility]11-25-2024 13:27-0500Body pvqegx100.48 kgDennis Furlong DO Work Phone: [facility] [employer] Zhrdyz80-66-0223 13:27-0500Diastolic blood mm[Hg]Wojciech Furlong DO Work Phone: [facility] [employer] Pisriu38-19-3458 13:27-0500Heart rate 89 /minDennis Furlong DO Work Phone: [facility]11-25-2024 13:27-0500 Respiratory rate24 /minDennis Furlong DO Work Phone: [facility]11-25-2024 13:27-3023FqQ9% (BldA) [Mass fraction]97 %Wojciech Santanalong DO Work Phone: [facility] [employer] Ciftng72-33-2700 13:27-0500Systolic blood avyskwog580 mm[Hg]Wojciech Santanalong DO Work Phone: [facility] [employer] Oktxnn91-36-8792 08:59-0500Body gkmreh302.2 cmDennis Maxlong DO Work Phone: [facility] [employer] Fchtkx08-96-1715 08:59-0500Body mass index (BMI) [Ratio]41.44 kg/b4Xuuwsu Furlong DO Work Phone: [facility] [employer] Lvwvco82-52-5253 08:59-0500Body kuoneisvuyy70.01 [degF]Wojciech Santanalong DO Work Phone: [facility] [employer] Ttfizl86-37-1310 08:59-0500Body dksaxq441.02 kgDennis Maxlong DO Work Phone: [facility] [employer] Mjytkw51-10-1094 08:59-0500Diastolic blood mousttyw10 mm[Hg]Wojciech Santanalong DO Work Phone: [facility] [employer] Uwiahb07-66-5725 08:59-0500Heart rate 87 /minDennis Furlong DO Work Phone: [facility]11-14-2024 08:59-0500 Respiratory rate20 /Reyna Santanalong DO Work Phone: [facility]11-14-2024 08:59-3197HzZ2% (BldA) [Mass fraction]100 %Wojciech Lobatong DO Work Phone: [facility]11-14-2024 08:59-0500Systolic blood uyuqvcvl608 mm[Hg]Wojciech Lobatong DO Work Phone: [facility]10-29-2024 09:28-0400Body mass index (BMI) [Ratio]43.57 kg/m2Rhnatasha Moorea Work Phone: [facility]10-29-2024 09:28-0400Body temperature 97.11 [degF]Rena Moorea Work Phone: [phone]10-29-2024 09:28-0400Body lkremy656.6 kgRheu Digna Work Phone: [phone]10-29-2024 09:28-0400Diastolic blood ggubebec93 mm[Hg]Georginau Digna Work Phone: [phone]10-29-2024 09:28-0400Heart rate93 /min Rena Moorea Work Phone: [phone]10-29-2024 09:28-0400Systolic blood pbggbexe837 mm[Hg]Rena Moorea Work Phone: [facility]10-03-2024 15:52-0400Body .2 cmWojciech Lobatong DO Work Phone: [facility]10-03-2024 15:52-0400Body mass index (BMI) [Ratio]41.13 kg/y1FunfjtWojciech Santanalong DO Work Phone: [facility]10-03-2024 15:52-0400Body xvpkoooulny13.01 [degF]Wojciech Treviño DO Work Phone: [facility] [employer] Bpfrlk97-38-2252 15:52-0400Body vmoxyk951.11 kgWojciech Treviño DO Work Phone: [facility]10-03-2024 15:52-0400Diastolic blood paknmdyb95 mm[Hg]Wojciech Treviño DO Work Phone: [facility]10-03-2024 15:52-0400Heart rate 72 /Reyna Treviño DO Work Phone: [facility]10-03-2024 15:52-0400 Respiratory rate18 /Reyna Treviño DO Work Phone: [facility]10-03-2024 15:52-3795LhA9% (BldA) [Mass fraction]94 %Wojciech Treviño DO Work Phone: [facility]10-03-2024 15:52-0400Systolic blood mm[Hg]Wojciech Treviño DO Work Phone: [facility] [facility] 14:47-0400Body mass index (BMI) [Ratio]43.46 kg/p0JbapsNadege Murphy DO Work Phone: [facility]10-02-2024 14:47-0400Body temperature 97 [degF]Nadege Murphy DO Work Phone: [facility]10-02-2024 14:47-0400Body ofxfhj117.3 kgNadege Murphy DO Work Phone: [facility]10-02-2024 14:47-0400Diastolic blood dindehaa20 mm[Hg]Nadege Murphy DO Work Phone: [facility]10-02-2024 14:47-0400Heart rate70 /min Nadege Murphy DO Work Phone: [facility]10-02-2024 14:47-0400Systolic blood lyjkxvjv023 mm[Hg]Nadege Murphy DO Work Phone: [facility]09-30-2024 11:03-0400Body .2 cmLmack Kaur [employer] Work Phone: [facility]09-30-2024 11:03-0400 Body mass index (BMI) [Ratio]41.43 kg/w7Pmzuwsw Vincent [employer] Work Phone: [facility]09-30-2024 11:03-0400 Body xoqwvz618.98 kgChristian Kaur [employer] Work Phone: [facility]09-30-2024 11:03-0400 Diastolic blood ykqmrass57 mm[Hg]Christian Kaur [employer] Work Phone: [facility]09-30-2024 11:03-0400 Heart rate67 /minChristian Villasenorer [employer] Work Phone: [facility]09-30-2024 11:03-0400 SaO2% (BldA) [Mass fraction]91 %Christian Kaur [employer] Work Phone: [facility]09-30-2024 11:03-0400 Systolic blood qjntgtah698 mm[Hg]Christian Kaur [employer] Work Phone: [facility]09-03-2024 10:10-0400 Body mass index (BMI) [Ratio]43.25 kg/m2Rheu Digna Work Phone: [facility]09-03-2024 10:10-0400Body temperature 97.11 [degF]Rheu Digna Work Phone: [facility]09-03-2024 10:10-0400Body .7 kgRheu Digna Work Phone: [facility]09-03-2024 10:10-0400Diastolic blood xluzxwkj39 mm[Hg]Rena Sawyer Work Phone: [facility]09-03-2024 10:10-0400Heart rate70 /min Rena Sawyer Work Phone: [facility]09-03-2024 10:10-0400Systolic blood xfhqpydq346 mm[Hg]Rena Sawyer Work Phone: [facility]08-22-2024 13:46-1047QuU6% (BldA) [Mass fraction]97 %Juan Chino MD Work Phone: [facility]08-14-2024 10:05-0400 Body ioxngk588.2 cmDenrebecca Santanalong DO Work Phone: [facility] [employer] Yaxrol76-95-3813 10:05-0400Body mass index (BMI) [Ratio]41.66 kg/d6Idxdjm Furlong DO Work Phone: [facility] [employer] Eswbop91-93-4126 10:05-0400Body ywxddvmhocx42.81 [degF]Wojciech [facility]analong DO [facility] Phone: [facility] Pbwsfe99-53-3865 10:05-0400Body .66 kgDennis Maxlong DO Work Phone: [facility] Zdsprv99-70-1323 10:05-0400Diastolic blood ntckzaxd02 mm[Hg]Wojciech Furlong DO Work Phone: [facility] Mrruhk36-90-7808 10:05-0400Heart rate 90 /minDennis Furlong DO Work Phone: [facility] Tpyykg89-83-7109 10:05-0400 Respiratory rate18 /minDennis Furlong DO Work Phone: [facility]08-14-2024 10:05-8500PfZ4% (BldA) [Mass fraction]95 %Wojciech Furlong DO Work Phone: [facility]08-14-2024 10:05-0400Systolic blood bnuggqyy540 mm[Hg]Wojciech Treviño DO Work Phone: [facility]07-30-2024 14:25-0400Body .4 Deejaycathy Marissa PA-C Work Phone: [facility]07-30-2024 14:25-0400Body mass index (BMI) [Ratio]43.75 kg/p3Pvunfmtr Marissa PA-C Work Phone: [facility]07-30-2024 14:25-0400Body temperature 97.9 [degF]Obdulia Marissa PA-C Work Phone: [facility]07-30-2024 14:25-0400Body .1 kgBintacathy Marissa PA-C Work Phone: [facility]07-30-2024 14:25-0400Diastolic blood nmcczumi65 mm[Hg]Obdulia Marissa PA-C Work Phone: [facility]07-30-2024 14:25-0400Heart rate77 /min Obdulia Marissa PA-C Work Phone: [facility]07-30-2024 14:25-0400Systolic blood qjemmkyu198 mm[Hg]Obdulia Marissa PA-C Work Phone: [facility]07-09-2024 12:00-0400Diastolic blood mm[Hg]Rheu Digna Work Phone: [facility]07-09-2024 12:00-0400Heart rate70 /min Rheu Digna Work Phone: [facility]07-09-2024 12:00-0400Systolic blood suidkjtl411 mm[Hg]Rheu Digna Work Phone: [facility]07-09-2024 09:34-0400Body mass index (BMI) [Ratio]41.37 kg/m2Rheu Digna Work Phone: [facility]07-09-2024 09:34-0400Body temperature 97.39 [degF]Georginau Digna Work Phone: [facility]07-09-2024 09:34-0400Body icmppn801.8 kgRheu Digna Work Phone: [facility]07-02-2024 09:04-0400Body twugvq192.2 cmDennis Furlong DO Work Phone: [facility] [employer] Ujpebu52-13-0378 09:04-0400Body mass index (BMI) [Ratio]41.4 kg/r7Qhmmia Furlong DO Work Phone: [facility]07-02-2024 09:04-0400Body vsfgxa369.89 kgDennis Furlong DO Work Phone: [facility]07-02-2024 09:04-0400Diastolic blood nyfjdtzf43 mm[Hg]Wjociech Furlong DO Work Phone: [facility]07-02-2024 09:04-0400Systolic blood dscovxyw587 mm[Hg]Wojciech Furlong DO Work Phone: [facility]07-01-2024 16:56-0400Body pnudwo130.2 cmLmack Villasenorer [employer] Work Phone: [facility]07-01-2024 16:56-0400 Body mass index (BMI) [Ratio]41.57 kg/p2Nkvupie Meder [employer] Work Phone: [facility]07-01-2024 16:56-0400 Body pkewvb173.4 kgChristian Meder [employer] Work Phone: [facility]07-01-2024 16:56-0400 Diastolic blood ukcdrbyg90 mm[Hg]Christian Villasenorer [employer] Work Phone: [facility]07-01-2024 16:56-0400 Heart rate68 /minLinlisarita Villasenorjose [employer] Work Phone: [facility]07-01-2024 16:56-0400 SaO2% (BldA) [Mass fraction]96 %Christian Vincent [employer] Work Phone: [facility]07-01-2024 16:56-0400 Systolic blood mm[Hg]Christian Kaur [employer] Work Phone: [facility]05-21-2024 07:22-0400 Body ysexrz082.2 cmJuan Chino MD Work Phone: [facility]05-21-2024 07:22-0400 Body mass index (BMI) [Ratio]41.19 kg/w8DkpfcefsJuan Chino MD Work Phone: [facility]05-21-2024 07:22-0400 Body snmyah351.3 kgJuan Chino MD Work Phone: [facility]05-14-2024 09:44-0400 Body piwofb521.2 cmRadu aSlazar MD Work Phone: [facility]05-14-2024 09:44-0400Body mass index (BMI) [Ratio]41.09 kg/c4QlzofwRadu Salazar MD Work Phone: [facility]05-14-2024 09:44-0400Body lczmbo058 kg Radu Salazar MD Work Phone: [facility]05-14-2024 09:44-0400Diastolic blood tgrkezbm38 mm[Hg]Radu Salazar MD Work Phone: [facility]05-14-2024 09:44-0400Heart rate67 /min Radu Salazar MD Work Phone: [facility]05-14-2024 09:44-0400Systolic blood qabxmdlt743 mm[Hg]Radu Salazar MD Work Phone: [facility]05-09-2024 09:22-0400Body mass index (BMI) [Ratio]41.71 kg/m2Rheu Digna Work Phone: [phone]05-09-2024 09:22-0400Body temperature 96.49 [degF]Rheu Digna Work Phone: [phone]05-09-2024 09:22-0400Body kg Rheu Digna Work Phone: [phone]05-09-2024 09:22-0400Diastolic blood hucjmmqp89 mm[Hg]Rheu Digna Work Phone: [phone]05-09-2024 09:22-0400Heart rate76 /min Rheu Digna Work Phone: [phone]05-09-2024 09:22-0400Systolic blood rzaswcnr649 mm[Hg]Rheu Digna Work Phone: [phone]05-07-2024 11:16-0400Body mass index (BMI) [Ratio]41.34 kg/n9JmsfuvDione Frances MD Work Phone: [phone]05-07-2024 11:16-0400Body .94 kgDione Frances MD Work Phone: [phone]05-07-2024 11:16-0400Diastolic blood gtzaykvk31 mm[Hg]Dione Frances MD Work Phone: [phone]05-07-2024 11:16-0400Heart rate76 /min Dione Frances MD Work Phone: [phone]05-07-2024 11:16-0400Systolic blood gnvuddhq360 mm[Hg]Dione Frances MD Work Phone: [phone]04-11-2024 13:14-0400Inhaled oxygen flow rate3 L/minDO Wojciech [facility] Work Phone: [facility]04-11-2024 13:14-0400 SaO2% (BldA) [Mass fraction]99 %DO Wojciech Santanalong Work Phone: [facility]04-11-2024 13:09-0400 Body jsuvlk739.18 cmDO Wojciech Santanalong Work Phone: [facility]04-11-2024 13:09-0400 Body ybpyes826 kgDO Wojciech Santanalong Work Phone: [facility]04-11-2024 13:07-0400 Body qinewi561.18 cmDO Wojciech Santanalong Work Phone: [facility]04-11-2024 13:07-0400 Body phsydi032 kgDO Wojciech Santanalong Work Phone: [facility]04-01-2024 15:59-0400 Diastolic blood ecjasivq81 mm[Hg]Juan Chino MD Work Phone: [facility]04-01-2024 15:59-0400 Heart ydia056 /minJuan Chino MD Work Phone: [phone]-[facility]04-01-2024 15:59-0400 Systolic blood mm[Hg]Juan Chino MD Work Phone: [phone]04-01-2024 15:57-0400 Body mass index (BMI) [Ratio]41.24 kg/p5UbeukxsnJuan Chino MD Work Phone: [phone]04-01-2024 15:57-0400 Body tkqehk921.44 kgJuan Chino MD Work Phone: [facility]04-01-2024 15:57-0400 SaO2% (BldA) [Mass fraction]95 %Juan Chino MD Work Phone: [facility]03-25-2024 09:34-0400 Body ujsgzs787.2 cmAmy [facility]03-25-2024 09:34-0400Body mass index (BMI) [Ratio]41.35 kg/m2Kalyn [facility]03-25-2024 09:34-0400Body pijzxq911.75 kgKalyn [facility]03-25-2024 09:34-0400Diastolic blood rhpgporq72 mm[Hg]Kalyn [facility]03-25-2024 09:34-0400 Heart rate90 /minKalyn [facility]03-25-2024 09:34-4573QnV5% (BldA) [Mass fraction]94 %Kalyn [facility]03-25-2024 09:34-0400Systolic blood mm[Hg]Kalyn [facility]03-14-2024 08:49-0400Body ezkbnk802.2 cm Yuriy Conway MD Work Phone: 1([phone])799-[address] [place], [place] 2553703-14-2024 08:49-0400 Body mass index (BMI) [Ratio]40.72 kg/a3FwkddoYuriy Conway MD Work Phone: 3(654)030-[address] [place], [place] 2553703-14-2024 08:49-0400 Body wywdmc298.94 kgYuriy Conway MD Work Phone: [phone])[address]03-14-2024 08:49-0400 Diastolic blood mm[Hg]Yuriy Conway MD Work Phone: 1(701)279-[address] [place], [place] 2553703-14-2024 08:49-0400 Heart rate96 /minYuriy Conway MD Work Phone: [phone])[address]03-14-2024 08:49-0400 Systolic blood ivqanwre732 mm[Hg]Yuriy Conway MD Work Phone: 1(880)695-[address] [place], [place] 2553702-27-2024 10:41-0500 Body cneqyq546.9 Arash Ann PA-C Work Phone: [facility]02-27-2024 10:41-0500Body temperature 98.2 [degF]Obdulia Ann PA-C Work Phone: [facility]02-27-2024 10:41-0500Body bazvva245.7 kgObdulia Ann PA-C Work Phone: [facility]02-27-2024 10:41-0500Diastolic blood hdvhyuzd86 mm[Hg]Obdulia Ann PA-C Work Phone: [place] [address]-27-2024 10:41-0500Heart rate90 /min Obdulia Ann PA-C Work Phone: [facility]02-27-2024 10:41-0500Systolic blood smytbxwp096 mm[Hg]Obdulia Dennisanda PA-C Work Phone: [facility]02-15-2024 09:31-0500Body temperature 98.1 [degF]Rheu Digna Work Phone: [facility]02-15-2024 09:31-0500Body .8 kgRheu Digna Work Phone: [phone]02-15-2024 09:31-0500Diastolic blood hfmudvtw08 mm[Hg]Rheu Digna Work Phone: [facility]02-15-2024 09:31-0500Heart rate92 /min Rheu Digna Work Phone: [place] [address]-15-2024 09:31-1359NbD2% (BldA) [Mass fraction]98 %Rheu Digna Work Phone: [place] [address]-15-2024 09:31-0500Systolic blood mfaybdvc203 mm[Hg]Rheu Digna Work Phone: [facility]02-01-2024 09:45-0500Heart dgmi851 /minYuriy Conway MD Work Phone: 1(440)414-[address] [place], [place] 2553702-01-2024 09:11-0500 Body znsyxn683.2 cmYuriy Conway MD Work Phone: [phone])[address]02-01-2024 09:11-0500 Body mass index (BMI) [Ratio]40.72 kg/p3VtjzmfYuriy Conway MD Work Phone: [phone])[address]07 [address]02-01-2024 09:11-0500 Body idbdgw282.94 kgYuriy Conway MD Work Phone: [phone])[address]07 [address]02-01-2024 09:11-0500 Diastolic blood wrfquxkx83 mm[Hg]Yuriy Conway MD Work Phone: [phone])[address]02-01-2024 09:11-0500 Systolic blood lbeyuqiv46 mm[Hg]Yuriy Conway MD Work Phone: 1(368)509-[address] [place], [place] 2553701-16-2024 13:15-0500 Body ljaeqt037.2 cmCha Staley [employer] Work Phone: [facility] [employer] Xfvzhs10-40-8045 13:15-0500Body mass index (BMI) [Ratio]40.5 kg/m2Cha Staley [employer] Work Phone: [facility] [employer] Sterqt46-13-5763 13:15-0500Body .39 [degF]Cha Staley [employer] Work Phone: [facility]01-16-2024 13:15-0500Body vmjjuh824.3 kgMaryajoey Staley [employer] Work Phone: [facility] [employer] Nsikjc27-57-5505 13:15-0500Diastolic blood bdtzayrz35 mm[Hg]Cha Staley [employer] Work Phone: [facility]01-16-2024 13:15-0500Heart rate 64 /minMaryajoey Valientechristiano [employer] Work Phone: [facility]01-16-2024 13:15-5563BeE1% (BldA) [Mass fraction]98 %Cha Staley [employer] Work Phone: [facility]01-16-2024 13:15-0500Systolic blood lnnjueoa714 mm[Hg]Cha Staley [employer] Work Phone: [facility]11-15-2023 09:00-0500Body ymifpoyvqah50.1 [degF]Rheu Digna Work Phone: [phone]11-15-2023 09:00-0500Body lnhero620.48 kgRheu Digna Work Phone: [phone]11-15-2023 09:00-0500Diastolic blood atqyaprn04 mm[Hg]Rheu Digna Work Phone: [phone]11-15-2023 09:00-0500Heart rate69 /min Rheu Digna Work Phone: [phone]11-15-2023 09:00-0500Respiratory rate 18 /minRheu Digna Work Phone: [phone]11-15-2023 09:00-0500Systolic blood ollvezcb150 mm[Hg]Rheu Digna Work Phone: [phone]08-30-2023 08:59-0400Body ypxwmg591.21 kgDione Frances MD Work Phone: [phone]08-30-2023 08:59-0400Diastolic blood ibilihhg86 mm[Hg]Dione Frances MD Work Phone: [phone]08-30-2023 08:59-0400Heart rate70 /min Dione Frances MD Work Phone: [phone]08-30-2023 08:59-0400Systolic blood mijbwglf471 mm[Hg]Dione Frances MD Work Phone: [phone]08-17-2023 08:40-0400Diastolic blood qimskvyk74 mm[Hg]Dione Frances MD Work Phone: [phone]08-17-2023 08:40-0400Heart rate75 /min Dione Frances MD Work Phone: [phone] [address]-17-2023 08:40-0400Respiratory rate 16 /minDione Frances MD Work Phone: [phone]08-17-2023 08:40-7998ZmS9% (BldA) [Mass fraction]96 %Dione Frances MD Work Phone: [phone]08-17-2023 08:40-0400Systolic blood fyjlpisa410 mm[Hg]Dione Frances MD Work Phone: [phone]08-17-2023 08:10-0400Body temperature 99.81 [degF]Dione Frances MD Work Phone: [phone]08-03-2023 10:02-0400Body temperature 97.2 [degF]Rheu Digna Work Phone: [phone]08-03-2023 10:02-0400Body .67 kgRheu Digna Work Phone: [phone]08-03-2023 10:02-0400Diastolic blood lzlbiuxm75 mm[Hg]Rheu Digna Work Phone: [phone]08-03-2023 10:02-0400Heart rate66 /min Rheu Digna Work Phone: [phone]08-03-2023 10:02-9002XtU2% (BldA) [Mass fraction]97 %Rheu Digna Work Phone: [phone]08-03-2023 10:02-0400Systolic blood imyzqrtc427 mm[Hg]Rheu Digna Work Phone: [phone]06-21-2023 13:14-0400Body temperature 97 [degF]Nadege Murphy DO Work Phone: [facility]06-21-2023 13:14-0400Body rmngte981.4 kgNadege Murphy DO Work Phone: [facility]06-21-2023 13:14-0400Diastolic blood xacqljyq44 mm[Hg]Nadege Murphy DO Work Phone: [facility]06-21-2023 13:14-0400Heart rate72 /min Nadege Murphy DO Work Phone: [facility]06-21-2023 13:14-0400Systolic blood oouplqhn161 mm[Hg]Nadege Murphy DO Work Phone: [facility]05-01-2023 13:00-0400Diastolic blood lszrejqw99 mm[Hg]Rheu Digna Work Phone: [facility]05-01-2023 13:00-0400Heart rate88 /min Rheu Digna Work Phone: [facility]05-01-2023 13:00-0400Systolic blood mm[Hg]Rheu Digna Work Phone: [facility]05-01-2023 10:00-0400Body temperature 97 [degF]Rheu Digna Work Phone: [facility]05-01-2023 10:00-0400Body oziqbu456.4 kgRheu Digna Work Phone: [facility]05-01-2023 10:00-0400Respiratory rate 18 /minRheu Digna Work Phone: [facility]02-01-2023 08:45-440157 1Dnicolasa Treviño Work Phone: [phone]) 569-7356764-3736NB-BihewShriners [facility] [address] [place] Work Phone: Comment on above:[id number] 13:15-0500 Diastolic blood mm[Hg]Rheu Digna Work Phone: [facility]01-30-2023 13:15-0500Heart rate75 /min Rheu Digna Work Phone: [facility]01-30-2023 13:15-0500Respiratory rate 18 /minRheu Digna Work Phone: [facility]01-30-2023 13:15-0500Systolic blood oceaslwy25 mm[Hg]Georginau Digna Work Phone: [facility]01-30-2023 10:10-0500Body temperature 97.39 [degF]Georginau Digna Work Phone: [facility]01-30-2023 10:10-0500Body jbdmah653.13 kgRheu Digna Work Phone: [facility]12-30-2022 10:00-070581 1Dennis G Furlong Work Phone: [phone]-OcpmjRed [facility]rtley [address] DO Work Phone: Comment on above:[id number] 10:00-0500Body cmemky090.18 cmDennis G Furlong Work Phone: [id number]-DxzfoRed Lake Indian Health Services Hospital-[place]aver[place] [address] DO Work Phone: [phone] 10:00-0500Body mass index (BMI) [Ratio] 38.69 kg/c5Ksgroe G Furlong Work Phone: [id number]-BfvfbRed Lake Indian Health Services HospitalLOAG 250 DO Work Phone: [phone] 10:00-0500Body surface area Derived from formula2.21 m4Fuhohq G Furlong Work Phone: [id number]-Uvksi [place] HeartGateGuruMaverick 250 DO Work Phone: 1([phone]) 119-793512-16-2022 10:00-0500Body rfturj949.04 kgDennis G Furlong Work Phone: [id number]-Zptyw [facility]-[place] [address] DO Work Phone: 1([phone]) [phone] 10:00-0500Diastolic blood mm[Hg] Wojciech Treviño Work Phone: [id number]-FsmsmRed [facility] Health Services Hospital-Sherry 250 DO Work Phone: 1([phone] 10:00-0500Heart rate72 /minDnicolasa Lobatong Work Phone: [id number]-QufkdRidgeview Sibley Medical CenterMaverick 250 DO Work Phone: 1([phone]) [phone] 10:00-0500Systolic blood ozuyjftu287 mm[Hg] oWjciech Treviño Work Phone: [id number]-SmicgRed Lake Indian Health Services Hospital-[place] 250 DO Work Phone: [phone] 08:49-0500Body blkoey577.6 cmPacc 2 Work Phone: [facility]12-15-2022 08:49-0500Body temperature 97 [degF]Pacc 2 Work Phone: [facility]12-15-2022 08:49-0500Body ehytej147.58 kgPacc 2 Work Phone: [place] [address]-15-2022 08:49-0500Diastolic blood uzhkbizi77 mm[Hg]Pacc 2 Work Phone: [facility]12-15-2022 08:49-0500Heart rate79 /min Pacc 2 Work Phone: [place] [address]-15-2022 08:49-0500Respiratory rate 16 /minPacc 2 Work Phone: [place] [address]-15-2022 08:49-1017VcX6% (BldA) [Mass fraction]99 %Pacc 2 Work Phone: [facility]12-15-2022 08:49-0500Systolic blood itupkkmg214 mm[Hg]Pacc 2 Work Phone: [facility]11-21-2022 11:56-0500Body eoqtkr120.2 cmMonica Booker MD Work Phone: cMagruder Memorial HospitalExrhch14-49-7833 11:56-0500Body .39 kgMonica Booker MD Work Phone: NMagruder Memorial [phone] 11:56-0500Diastolic blood ucipkgir99 mm[Hg]Monica Booker MD Work Phone: SMagruder Memorial HospitalJehohr93-33-5455 11:56-0500Heart rate80 /min Monica Booker MD Work Phone: XMagruder Memorial HospitalGwemaj08-62-0060 11:56-0500Systolic blood gykgvcvb664 mm[Hg]Monica Booker MD Work Phone: MMagruder Memorial HospitalTvtdkc73-77-7226 15:30-0400Diastolic blood ivpdxrqs04 mm[Hg]Rheu Main Work Phone: [facility]10-27-2022 15:30-0400Heart rate72 /min Rheu Main Work Phone: [facility]10-27-2022 15:30-0400Systolic blood gefndjqc283 mm[Hg]Rheu Main Work Phone: [facility]10-27-2022 12:45-0400Body temperature 97.39 [degF]Rheu Main Work Phone: [phone]10-26-2022 14:38-0400Body .72 kgLemuel Davis MD Work Phone: [phone]10-26-2022 14:38-0400Diastolic blood blixhfoy41 mm[Hg]Lemuel Davis MD Work Phone: [facility]10-26-2022 14:38-0400Heart rate75 /min Lemuel Davis MD Work Phone: [phone]10-26-2022 14:38-0400Systolic blood mdlasroc111 mm[Hg]Lemuel Davis MD Work Phone: [phone]09-02-2022 15:53-0400Body .2 Arash Peña PA-C Work Phone: [facility]09-02-2022 15:53-0400Body temperature 97.3 [degF]Obdulia Rosa PA-C Work Phone: [facility]09-02-2022 15:53-0400Body qsiykh884.72 kgObdulia Peña PA-C Work Phone: [facility]09-02-2022 15:53-0400Diastolic blood mm[Hg]Obdulia Rosa PA-C Work Phone: [facility]09-02-2022 15:53-0400Heart rate73 /min Obdulia Rosa PA-C Work Phone: [facility]09-02-2022 15:53-0400Systolic blood qpishtkj376 mm[Hg]Obdulia Rosa PA-C Work Phone: [facility]07-28-2022 14:30-0400Diastolic blood kibubpch15 mm[Hg]Rheu Main Work Phone: [facility]07-28-2022 14:30-0400Heart rate68 /min Rheu Main Work Phone: [facility]07-28-2022 14:30-0400Systolic blood mm[Hg]Rheu Main Work Phone: [facility]07-28-2022 11:43-0400Body temperature 97.81 [degF]Rheu Main Work Phone: [place] [address]-28-2022 11:12-0400Body temperature 96.91 [degF]Evelin Alicea MD Work Phone: [facility]07-28-2022 11:12-0400Body cczruk417.39 kgEvelin Alicea MD Work Phone: [facility]07-28-2022 11:12-0400Diastolic blood zzvhkoch26 mm[Hg]Evelin Alicea MD Work Phone: [place] [address]-28-2022 11:12-0400Heart rate67 /min Evelin Alicea MD Work Phone: [facility]07-28-2022 11:12-0400Systolic blood dfawpnkn699 mm[Hg]Evelin Alicea MD Work Phone: [facility]06-30-2022 16:10-0400Body byuhiu107.18 cmDO Neema Work Phone: [phone] [place], [place] 2152406-30-2022 16:10-0400 Body mass index (BMI) [Ratio]39.4 kg/m2DO Neema Work Phone: 1([phone] [place], [place] 3261906-30-2022 16:10-0400 Body ebyofatfhws10.7 [degF]DO Neema Work Phone: [phone] [place], [place] 4697906-30-2022 16:10-0400 Body pecwhb495.3 kgDO Neema Work Phone: [phone]06-30-2022 16:10-0400 Diastolic blood zvhnutwp621 mm[Hg]DO Neema Work Phone: 1([phone] [place], [place] 2152406-30-2022 16:10-0400 Heart mqqt516 /minDO Neema Work Phone: 1([phone] [place], [place] 2152406-30-2022 16:10-0400 Respiratory rate18 /minDO Neema Work Phone: 1(489)5-[address] [place], [place] 2152406-30-2022 16:10-0400 SaO2% (BldA) [Mass fraction]98 %DO Neema Work Phone: 1([phone] [place], [place] 2152406-30-2022 16:10-0400 Systolic blood dvjeqtdx169 mm[Hg]DO Neema Work Phone: 1([phone] [place], [place] 3261906-26-2022 08:00-0400 Body gfepdcjottz76.9 [degF]DO Wojciech Furlong Work Phone: 1(335)[address] [place], [place] 3261906-26-2022 08:00-0400 Diastolic blood yenwqnhm49 mm[Hg]DO Wojciech Furlong Work Phone: 1(591)[address] [place], [place] 3261906-26-2022 08:00-0400 Heart rate71 /minDO Wojciech Furlong Work Phone: 1(083)[address] [place], [place] 3261906-26-2022 08:00-0400 Respiratory rate18 /minDO Wojciech Furlong Work Phone: 1([phone] [place], [place] 3261906-26-2022 08:00-0400 SaO2% (BldA) [Mass fraction]94 %DO Wojciech Furlong Work Phone: 1([phone] [place], [place] 3261906-26-2022 08:00-0400 Systolic blood twtghmry631 mm[Hg]DO Wojciech Furlong Work Phone: 1(164)[address] [place], [place] 3261906-26-2022 05:37-0400 Body pmcwav873.1 kgDO [facility]ch [facility] Work Phone: 1([phone] [place], [place] 3261906-24-2022 20:42-0400 Body wlnivg477.64 cmDO [facility]ciech [facility] Work Phone: 1(860)[address] [place], [place] 3261906-24-2022 20:42-0400 Body mass index (BMI) [Ratio]41.3 kg/m2DO Wojciech Furlong Work Phone: 1(436)[address] [place], [place] 3261906-24-2022 19:13-0400 Diastolic blood xmjgfiog43 mm[Hg]DO Wojciech Furlong Work Phone: 1(651)[address] [place], [place] 3261906-24-2022 19:13-0400 Heart rate75 /minDO Wojciech Furlong Work Phone: 1(137)[address] [place], [place] 3261906-24-2022 19:13-0400 Respiratory rate18 /minDO Wojciech Furlong Work Phone: [phone]06-24-2022 19:13-0400 SaO2% (BldA) [Mass fraction]98 %DO Wojciech Treviño Work Phone: [phone]06-24-2022 19:13-0400 Systolic blood vmyaajyh405 mm[Hg]DO Wojciech Treviño Work Phone: 1(810)[address] [place], [place] 3261906-24-2022 11:48-0400 Body omlbxkxwbfn03.1 [degF]DO Wojciech [employer] Work Phone: 1(722)[address] [place], [place] 3261906-24-2022 11:47-0400 Body .64 cmDO Wojciech [employer] Work Phone: 1(565)[address] [place], [place] 3261906-24-2022 11:47-0400 Body mass index (BMI) [Ratio]41.1 kg/m2DO Wojciech [employer] Work Phone: 1(641)[address] [place], [place] 3261906-24-2022 11:47-0400 Body .66 kgDO Wojciech [employer] Work Phone: [phone] [place], [place] 2152404-25-2022 14:45-0400 Diastolic blood csaeyxvt45 mm[Hg]Rheu Main Work Phone: [facility]04-25-2022 14:45-0400Heart rate75 /min Rheu Main Work Phone: [facility]04-25-2022 14:45-0400Systolic blood nxqjyevi136 mm[Hg]Rheu Main Work Phone: [facility]04-25-2022 12:00-0400Body temperature 97.3 [degF]Rheu Main Work Phone: [facility]01-27-2022 08:50-0500Diastolic blood oaskuitb68 mm[Hg]Dione Frances MD Work Phone: [facility]01-27-2022 08:50-0500Heart rate66 /min Dione Frances MD Work Phone: [facility]01-27-2022 08:50-0500Respiratory rate 16 /minDione Frances MD Work Phone: [facility]01-27-2022 08:50-3286GeL6% (BldA) [Mass fraction]97 %Dione Frances MD Work Phone: [facility]01-27-2022 08:50-0500Systolic blood oolvburj642 mm[Hg]Dione Frances MD Work Phone: [facility]01-27-2022 08:24-0500Body temperature 97.39 [degF]Dione Frances MD Work Phone: [facility] Encounters Encounter DateEncounter TypeCare ProviderFacilityStart: 06-26-2025 End: 35-56-7508ybxydhpbkuDVCLUuwifqpw:[facility]tart: 06-21-2025 End: 74-15-4330bwudpttnxaMFSFSI GERARD FURLONGFacility:[facility] Start: 06-16-2025 End: 61-00-7239cinixwyqdgVNAFMV GERARD FURLONGFacility:[facility] Start: 06-05-2025 End: 62-02-3547ZcssvkRoempv G Furlong DO Work Phone: [facility] Family MedicineStart: 05-30-2025 End: 16-72-3432kuwxdfchrfFWCDHX GERARD FURLONGFacility:[facility] Start: 05-25-2025 End: 21-97-2544vtqzquusxgEMPWGK GERARD FURLONGFacility:[facility] Start: 05-24-2025 End: 48-91-2935wmeshsdkcgPXXOTD GERARD FURLONGFacility:[facility] Start: 05-17-2025 End: 54-93-9492CbimspFfpq Cooper [facility]ITALPro[facility] - Family MedicineStart: 05-03-2025 End: 76-31-4509Watafvh encounter procedureCast Tech [place] Work Phone: OrthopaedicsComment on above:Primary osteoarthritis of both feet (Primary Dx)Charcot arthropathy (Primary Dx)Start: 05-03-2025 End: 69-88-9749vohkzdhwomLFTRCG FRANCISCO JAVIER SANTANAJASONFacility:[facility] Start: 05-02-2025 End: 83-66-8818CattwcFficrw G Furlong DO Work Phone: [facility]art: 04-26-2025 End: 10-70-8157ksotguwpoaFvxten Leone MD Work Phone: GastroenterologyComment on above:Stomach / diarrhea Start: 04-26-2025 End: 51-80-1123Niofdl-up Radha Treviño DO Work Phone: [facility] - Family MedicineComment on above:C difficile by PCRStart: 04-26-2025 End: 30-74-1054Etztcxyou Scarlett Frances MD Work Phone: GastroenterologyComment on above:Diarrhea, stomach crampingStart: 04-25-2025 End: 22-62-3007Lfdwwd OnlyJenarorebecca Treviño DO Work Phone: [facility] - Family MedicineComment on above:Diarrhea of presumed infectious origin (Primary Dx) Start: 04-24-2025 End: 14-86-5140qzfzcrqtteLlnbwbezTyesha Prather PA-C Work Phone: [facility] ClevelandComment on above:TherapyStart: 04-18-2025 End: 45-79-9472Tddfmdrgs Jose Roberto Hall MD Work Phone: OrthopaedicsStart: 04-18-2025 End: 36-97-6062Mfhfxiu encounter procedureFercho Prather PA-C Work Phone: [facility] ClevelandComment on above:Charcot arthropathy (Primary Dx)Office visitStart: 04-18-2025 End: 00-77-2528uwsglvntznBysvt Chawla MD Work Phone: OrthopaedicsStart: 04-03-2025 End: 50-40-3000bnxabgnltiVCXHF CHAWLAcility:[facility]ustart: 03-23-2025 End: 87-70-9550iylkhzhsvpAIIBOwcelawi:[facility] HospitalStart: 03-22-2025 End: 13-16-4730HfnmufLvmgct Taz Luis Alfredomolly DO Work Phone: [facility] Family MedicineStart: 03-21-2025 End: 39-13-3040K-mail encounter from caregiverMecan Gallegos RNInfusionStart: 03-21-2025 End: 83-47-1287Xfwjugv encounter procedureMecan Gallegos RNInfusionComment on above:Infusion AppointmentStart: 03-20-2025 End: 14-87-5854Tqmltziuy encounterEmily Susan BianchiRadames DO Work Phone: RheumatologyComment on above:Procedure; InfusionStart: 03-20-2025 End: 81-51-3274Wqpbwmwqg to establishmentUf Health [facility] 2 Work Phone: Pre AnesthesiaStart: 03-20-2025 End: 40-05-8064Cgdtfecfuu consultationUf Health Jacksonville 2 Work Phone: Pre AnesthesiaComment on above:Pre-op examination (Primary Dx); History of DVT (deep vein thrombosis); [...] status (HCC); Obesity, Class III, BMI >= 40Start: 03-20-2025 End: 12-24-5181Elgopswuupzkj examination [facility] 2 Work Phone: [facility] Work Phone: Start: 03-20-2025 End: 83-17-9865oumfzfkanwPFGIG CHAWLAFacility:[facility] Hospitaltart: 18-79-1970Fkqjhokja for other preprocedural examinationMICHAEL JOANNationwide Children'S HospitalStart: 03-10-2025 End: 42-90-8126Tbneuie encounter procedureAlshilpa Childress MD Work Phone: OrthopaedicsComment on above:Primary osteoarthritis of left knee (Primary Dx)Start: 03-10-2025 End: 55-28-6974bulqlgewkaTMCLSH GERARD FURNGFacility:[facility] Start: 02-21-2025 End: 15-04-2091FchcppHuaiitcjDaryl Ann PA-C Work Phone: Bonw CenterComment on above:Refill RequestPreparations For Surgery (Eliquis instructions)Start: 02-20-2025 End: 92-89-7633Iwkuqvvwp to same day surgery centerTamara A Bevelac[place] RNPre AnesthesiaComment on above:Preparations For Surgery (PACC)Start: 02-20-2025 End: 56-12-5662pewskgmdfnXpkghh A [place] RNPre AnesthesiaStart: 02-14-2025 End: 47-16-9905tfyjqeuadpHjwsg Chawla MD Work Phone: OrthopaedicsStart: 02-14-2025 End: 93-54-4915Giqtgrg encounter procedureSkristopher Hall MD Work Phone: OrthopaedicsComment on above:My chart questionStart: 02-07-2025 End: 32-08-1453Mznnjw Christian Hall MD Work Phone: OrthopaedicsComment on above:Arthritis, neuropathic (Primary Dx); Bone diseaseStart: 02-03-2025 End: 61-31-2681Zwcfqvqlu encounterSkristopher Hall MD Work Phone: OrthopaedicsComment on above:Surgical Follow UpStart: 02-03-2025 End: 17-39-6877hxvepfejjkTMYWE CHAWLAFacility:[facility] Hospitaltart: 02-01-2025 End: 91-72-5182Lpsgxbn encounter procedureNarcisa Velazquez PT Work Phone: [facility] Physical TherapyComment on above: Pain in left foot (Primary Dx); Closed fracture of left foot, initial encounter; Pain in right footStart: 02-01-2025 End: 86-70-5816Ykqbld outpatient visit 15 minutesAiden Hall MD Work Phone: OrthopaedicsComment on above:Charcot arthropathy (Primary Dx); Disorder of bone, unspecifiedStart: 02-01-2025 End: 89-03-7746xmqeikmfnvBprajjqd Burkhart PT Work Phone: Brendan Estela Davenport [facility] Physical TherapyStart: 02-01-2025 End: 48-35-7566Xyempqnhxp hospital [facility]St[facility] Work Phone: [facility] Radiology CT ScanComment on above:DJD (degenerative joint disease), ankle and foot, right [M19.071]Start: 01-30-2025 End: 42-09-4317Tkrnazwrs encounterSchayo Cerda PTNOMS CI PTComment on above:re: PTStart: 01-27-2025 End: 44-45-5940Pgjmqt outpatient visit 25 minutesAbisai Barraza RIGGING MAN-GUIDE EXCURSION Work Phone: [facility] SouthComment on above:Pre-operative clearance (Primary Dx); BMI 40.0-44.9, adult (Multi); Paroxysmal atrial fibrillation (Multi); prison current use of anticoagulant therapy; Deep vein thrombosis (DVT) of upper extremity, unspecified chronicity, unspecified laterality, unspecified vein; Presence of Watchman left atrial appendage closure deviceStart: 01-27-2025 End: 62-27-9219Xwurshbmlfuz stateDsari Barraza APRN-GUIDE EXCURSION Work Phone: [facility] [place] Work Phone: Start: 01-27-2025 End: 48-26-1348lkbmoximdiYVYOYFormerly [facility] AmbulatoryStart: 01-27-2025 End: 06-29-4387Jpfrontbz for other preprocedural examinationHarlem Hospital Center AmbulatoryStart: 01-26-2025 End: 01-37-6502Vlkpijbeb encounterSkristopher Hall MD Work Phone: OrthopaedicsComment on above:Patient UpdateStart: 01-26-2025 End: 84-24-9686sbfixhcqtmNwkm Chair 5 Digna Work Phone: InfusionComment on above:Systemic lupus erythematosus, unspecified SLE type, unspecified organ involvement status (HCC) (Primary Dx) Start: 01-25-2025 End: 10-11-9489Eyvgexj encounter procedureCurtis Ogden APRN.GUIDE EXCURSION Work Phone: OtolaryngologyComment on above:Left-sided epistaxis (Primary Dx); Nasal vestibulitis; prison (current) use of anticoagulantsStart: 01-25-2025 End: 22-87-3173ribefdmnmlMSHGWDV R JOHNSONFacility:[facility] Start: 01-23-2025 End: 64-35-2248Ojsaiw outpatient visit 15 Brandy Hall MD Work Phone: OrthopaedicsComment on above:Closed fracture of left foot, initial encounter (Primary Dx)Start: 01-23-2025 End: 68-50-0831tttokmtkfpElpjz Susan Murphy DO Work Phone: RheumatologyComment on above:Virgial apptStart: 01-19-2025 End: 52-42-2516McfnvtLocfsq Taz Treviño DO Work Phone: [facility] - Family MedicineComment on above:Closed displaced fracture of navicular bone of right foot with delayed healing, subsequent encounter (Primary Dx)Sprain of right foot, initial encounter [S93.601A]Start: 01-18-2025 End: 42-91-8302Ttoetvl encounter procedureCurtis Ogden APRN.GUIDE EXCURSION Work Phone: OtolaryngologyComment on above:Left-sided epistaxis (Primary Dx); prison (current) use of anticoagulantsStart: 01-18-2025 End: 48-48-4657druplqszubRVVIGUZ R JOHNSONFacility:[facility] Start: 01-17-2025 End: 72-44-5956C-mail encounter from caregiverBeverly Franco DPM Work Phone: PodiatryStart: 01-17-2025 End: 34-85-4979Kygcjyz encounter procedureBeverly Franco DPM Work Phone: PodiatryComment on above:XrayStart: 12-29-2024 End: 52-09-9808jscyserkkoIQWXJZYampa Valley Medical Center Ambulatory PPGStart: 12-29-2024 End: 99-17-7080Dpojbs outpatient visit 25 minutesHealth[facility] DO Work Phone: [facility] - Family MedicineComment on above:Intertrigo (Primary Dx); Essential hypertension; Closed nondisplaced fracture of navicular bone of right foot with routine healing, subsequent encounter; Paroxysmal atrial fibrillation ([facility]-HCC); Obesity, morbid (CMS-HCC); Chronic depressionStart: 12-22-2024 End: 12-53-4459Zijsfyu encounter Jr Greer MD Work Phone: ulmonary MedicineComment on above:Chronic diastolic congestive heart failure (HCC) (Primary Dx); Pulmonary hypertension (HCC); Obstructive sleep apnea syndrome; Obesity, Class III, BMI >= 40Start: 12-22-2024 End: 82-46-8435gkbmszcnpgOTYC MAHONEYFacility:[facility] Hospitaltart: 12-21-2024 End: 18-85-4192Wiyikbf encounter procedureBeverly Franco DPM Work Phone: PodiatryComment on above:Sprain of right foot, initial encounter (Primary Dx); Closed nondisplaced fracture of navicular bone of right foot, initial encounter; Osteoarthritis of midtarsal joint of right footStart: 12-21-2024 End: 47-96-1899amecdhxmaxRQUBJEX J SHLONSKYFacility:[facility] Start: 12-21-2024 End: 38-79-2069Xrvfmhopjo hospital visit by physicianXr [facility] Rej Work Phone: RadiologyComment on above:Pain in right foot [M79.671] Start: 12-20-2024 End: 27-19-0321Xlytoegkq encounterRolandomarva Franco DPM Work Phone: PodiatryComment on above:Appointment (Xray)Start: 12-19-2024 End: 15-26-1198D-mail encounter from caregiverBeverly Franco DPM Work Phone: PodiatryStart: 12-19-2024 End: 09-49-2430Fyeihvd encounter procedureBeverly Franco DPM Work Phone: PodiatryComment on above:XrayStart: 12-19-2024 End: 75-19-4009Zwnxkjurp encounterChristopher Oziel Robert DPM Work Phone: OrthopaedicsComment on above:Foot SwellingPain in right foot (Primary Dx)Start: 12-19-2024 End: 15-94-6430Chpfsz outpatient visit 15 minutesWojciech Treviño DO Work Phone: [facility] Family MedicineComment on above:Acute right ankle pain (Primary Dx); Pedal edemaStart: 12-19-2024 End: 37-79-7265kjeammvdvvNIXSSJ G [facility]ENTERNGUniversity [facility] Ambulatory PPGStart: 12-09-2024 End: 62-56-8449MedguyLncwdl G Furlong DO Work Phone: [facility] Family MedicineStart: 12-07-2024 End: 21-02-3473Cnbhvw outpatient visit 25 minutesYuriy Conway MD Work Phone: uh FirelandsComment on above:Paroxysmal atrial fibrillation (Multi) (Primary Dx); Presence of Watchman left atrial appendage closure device; Deep vein thrombosis (DVT) of upper extremity, unspecified chronicity, unspecified laterality, unspecified vein; 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; Chronic diastolic heart failure; Aneurysm of ascending aorta without rupture; Essential hypertension; Mixed hyperlipidemia; Obstructive sleep apnea; Never smoked any substance; BMI 40.0-44.9, adult (Multi); High risk medication use; Hyperlipidemia, unspecified hyperlipidemia type; Atypical atrial flutter; Morbid obesity (Multi); Other forms of systemic lupus erythematosus, unspecified organ involvement status (Multi)Start: 12-07-2024 End: 97-87-4585qwncpahzsdMKLUIFNortheast [facility] AmbulatoryStart: 12-01-2024 End: 76-03-9896vfxligdqnhPina Chair 6 [address] Work Phone: InfusionComment on above:Systemic lupus erythematosus, unspecified SLE type, unspecified organ involvement status (HCC) (Primary Dx) Start: 11-30-2024 End: 71-80-7516QxxwgkNyapcr Leone MD Work Phone: GastroenterologyComment on above:Refill RequestStart: 11-28-2024 End: 33-13-1470Hioaqi outpatient visit 15 minutesWojciech Treviño DO Work Phone: [facility] - Family MedicineComment on above:Localized osteoarthritis of left knee (Primary Dx) Start: 11-28-2024 End: 55-16-5514iblypgvhnyFJWNZNMerrick Medical Center Ambulatory PPGStart: 11-23-2024 End: 55-81-8157Yughyazol encounterEmrashard Murphy DO Work Phone: RheumatologyComment on above:Received Outside Medical RecordsStart: 11-23-2024 End: 17-50-2968twuqcziczoGHWPNONortheast [facility] Center [facility] AmbulatoryStart: 11-17-2024 End: 98-42-8968Xvcdvt-up encounterGejoselyn Salazar MD Work Phone: [facility]Start: 11-16-2024 End: 54-77-1436eyzostqenlBJJZAF THOMASFacility:[facility] Hospitaltart: 11-16-2024 End: 95-62-8033Hqumrfi encounter procedureEmrashard Murphy DO Work Phone: RheumatologyComment on above:Systemic lupus erythematosus, unspecified SLE type, unspecified organ involvement status (HCC) (Primary Dx)Start: 11-15-2024 End: 13-87-8275XdcbstDzatnd Leone MD Work Phone: GastroenterologyComment on above:Refill RequestStart: 11-15-2024 End: 05-48-7740jajlyhzpgxNYAYVD THOMASFacility:[facility] Hospitaltart: 11-15-2024 End: 20-19-6126Gbwpqvi encounter procedureGejoselyn Salazar MD Work Phone: [facility] MedicineComment on above:Lupus nephritis, ISN/RPS class V (HCC) (Primary Dx); Stage 3a chronic kidney disease (HCC); Membranous glomerulonephritis; Hypertension, unspecified typeStart: 10-16-2024 End: 45-25-5873VvstitTbrmtn Leone MD Work Phone: GastroenterologyComment on above:Refill RequestStart: 10-11-2024 End: 14-97-9499Kwtuxy outpatient visit 25 minutesWray Community District Hospitalrebecca Treviño DO Work Phone: [facility] - Family MedicineComment on above:Obstructive sleep apnea (Primary Dx); Dyspnea on exertion; Systemic lupus erythematosus, unspecified SLE type, unspecified organ involvement status (CMS-HCC); Acute deep vein thrombosis (DVT) of brachial vein of left upper extremity ([facility]-HCC); Obesity, morbid ([facility]-HCC); Chronic diastolic heart failure ([facility]-HCC); Atypical atrial flutter ([facility]-HCC)Start: 10-11-2024 End: 27-16-1082trlnbsfuzoLHBIBP [facility] Ambulatory PPGStart: 10-06-2024 End: 76-07-2420adsqdlmvkeCdzp Chair Kenton Sawyer Work Phone: InfusionComment on above:Systemic lupus erythematosus, unspecified SLE type, unspecified organ involvement status (HCC) (Primary Dx) Start: 10-04-2024 End: 50-98-8185eldribelcbQxa ProviderInfusionComment on above:infusion 10/06/24 Start: 10-04-2024 End: 81-97-4739A-mail encounter from [facility] ProviderInfusionStart: 09-30-2024 End: 03-28-3982bhqqwsthwzCJDAEI LEONEFacility:[facility] Hospitaltart: 09-30-2024 End: 15-67-3520Evuybb outpatient visit 25 minutesDione Frances MD Work Phone: GastroenterologyComment on above:Diarrhea, unspecified type (Primary Dx); Gastroesophageal reflux disease without esophagitis; Bile acid malabsorption syndrome; Other ulcerative colitis without complication (HCC)Start: 09-19-2024 End: 44-01-7299Ndagguose to same day surgery centerDennis Furlong DO Work Phone: [facility] Main JaralesStart: 09-19-2024 End: 51-04-2879upogupajmfYvjhbo Furlong DO Work Phone: [facility] Work Phone: Start: 09-16-2024 End: 16-17-5520VchltcOwqjsu G Furlong DO Work Phone: [facility] - Family MedicineStart: 09-15-2024 End: 16-69-2456Dmomwue encounter procedureDennis Furlong DO Work Phone: [facility]-CT Scan Main [place] Work Phone: Start: 09-15-2024 End: 06-24-1954vvgxmtrjdvFohqed Furlong DO Work Phone: [facility] Work Phone: Start: 09-12-2024 End: 41-62-2487yjeeenimolCFFXLN M [facility] Centertart: 09-12-2024 End: 31-19-8378Vynjtsjeua hospital visit by Colette Powell Echo/Vasc Room 2Jackson HospitalComment on above:Chronic diastolic heart failure; Shortness of breathStart: 09-08-2024 End: 25-94-3903BcsvydScvijm Leone MD Work Phone: GastroenterologyComment on above:Refill RequestStart: 29-88-0240Jzk-patient / Non-visitDennis Furlong DO Work Phone: [facility] Work Phone: Start: 08-29-2024 End: 98-98-4842Alrules encounter procedureDennis Furlong DO Work Phone: [facility]-Respiratory Therapy Work Phone: Start: 08-29-2024 End: 55-34-1292bpojysnvkhIszrbd Furlong DO Work Phone: [facility] Work Phone: Start: 08-15-2024 End: 31-51-0213Bjjearx encounter status[address] Work Phone: Start: 08-15-2024 End: 42-51-6717Xiycvhfcsr hospital visit by Colette Huynhhc[address] [place], [place] [address]Comment on above:Paroxysmal atrial fibrillation (Multi); Epistaxis; Anemia, unspecified type; Preop testingStart: 08-15-2024 End: 03-41-0187bilzcrfelpVLEVICRARegency Hospital Toledotart: 08-15-2024 End: 02-31-8357Ezteefdur for other preprocedural examinationProtestant Hospitaltart: 08-11-2024 End: 04-43-7055Zumenoine encounterAlfred Fior CHILDERS Work Phone: OrthopaedicsComment on above:Appointment (Ortho appt cancel/reschedule)Start: 08-11-2024 End: 52-68-5620wkvdverdreLpsp Chair [address] Work Phone: InfusionComment on above:Paroxysmal atrial fibrillation (HCC) (Primary Dx); Epistaxis; Preoperative examination, unspecified; Systemic lupus erythematosus, unspecified SLE type, unspecified organ involvement status (HCC)Start: 62-57-3800Vcyzeagfx for other preprocedural examinationMICHAEKindred Hospital DaytonStart: 08-11-2024 End: 10-42-0814Lmddnkgpncmav examination doneRena Sawyer Work Phone: TriHealthtart: 08-09-2024 End: 63-40-2766qlsoiyacaiCPWBBTDDAdams County Regional Medical Centertart: 08-08-2024 End: 27-12-7666Lmxmtxmzb encounterCecille Casillas RNInfusionComment on above: AppointmentStart: 08-05-2024 End: 10-99-6594Sfjsrw outpatient visit 40 minutesYuriy Conway MD Work Phone: FirelandsComment on above:Paroxysmal atrial fibrillation (Multi) (Primary Dx); High risk medication use; Chronic diastolic heart failure; Shortness of breath; Essential hypertension; Aneurysm of ascending aorta without rupture ([facility]-HCC); Obstructive sleep apnea; Never smoked any substance; BMI 39.0-39.9,adult; Deep vein thrombosis (DVT) of axillary vein of left upper extremity, unspecified chronicity (Multi); Other forms of systemic lupus erythematosus, unspecified organ involvement status (Multi)Start: 08-05-2024 End: 03-49-7648troflxshawGCOYVE M [facility] LimaStart: 07-18-2024 End: 26-97-8743Fcxnps Estiven Treviño DO Work Phone: [facility] - Family MedicineStart: 07-18-2024 End: 71-53-9317VwkztkZtukzm G Furlong DO Work Phone: [facility] - Family MedicineStart: 07-16-2024 End: 95-12-4312MoopbiJlygdb Leone MD Work Phone: GastroenterologyComment on above:Refill Request (Pantoprazole 40mg/)Start: 07-11-2024 End: 11-07-9012Xwglkk outpatient visit 15 minutesHealthsouth Rehabilitation Hospital [facility] DO Work Phone: [facility] - [facility] Medical CenterComment on above:Upper respiratory tract infection, unspecified type (Primary Dx); Pharyngitis, unspecified etiologyStart: 07-11-2024 End: 43-00-8427ajvhkanjwgWZMBEMMerrick Medical Center Ambulatory PPGStart: 06-30-2024 End: 21-11-1880Wpnnnj outpatient visit 25 minutesHealthsouth Rehabilitation Hospital Of [facility] DO Work Phone: [facility] Internal Medicine [facility] HospitalComment on above:Acute deep vein thrombosis (DVT) of brachial vein of left upper extremity (CMS-HCC) (Primary Dx); Paroxysmal atrial fibrillation ([facility]-HCC); Stage 3a chronic kidney disease ([facility]-HCC); Localized osteoarthritis of right knee; Obesity, morbid ([facility]-HCC)Start: 06-30-2024 End: 30-30-6710gpfqyvmvpfEPCNYQMerrick Medical Center Ambulatory PPGStart: 06-14-2024 End: 89-98-2087rerwrnxecpKciw Chair [address] Work Phone: InfusionComment on above:Systemic lupus erythematosus, unspecified SLE type, unspecified organ involvement status (HCC) (Primary Dx) Start: 06-13-2024 End: 61-95-5606KqsnrpKjsclv G Furlong DO Work Phone: [facility] Internal Medicine [facility]wn[facility]art: 06-10-2024 End: 43-97-9883hmrcsctspzPtl ProviderInfusionComment on above:Infusion Thursday06/14/24Start: 06-10-2024 End: 37-59-2639U-mail encounter from [facility] ProviderInfusionStart: 05-27-2024 End: 44-76-3165Gualgt OnlyEmrashard Murphy DO Work Phone: RheumatologyComment on above:Systemic lupus erythematosus, unspecified SLE type, unspecified organ involvement status (HCC) (Primary Dx)Start: 05-26-2024 End: 82-38-8603Dibdquues encounterSchayo Cerda PTNOMS CI PTComment on above:re: PT (Contacted re: last PT she wanted to fu w/ Dr. Childress before continuing on. She stated per Fior no recommendation of anymore PT at this time; sx is needed due to nidf-lx-lsnh.)Start: 05-20-2024 End: 11-39-3137jfaaziilyzQtxa D Woods RT(R)RadiologyComment on above:Radiology XRStart: 05-20-2024 End: 61-78-8571Vykuioe encounter procedureSarai Bean RT(R)RadiologyComment on above:Primary osteoarthritis of left knee (Primary Dx); Arthritis of left knee; Left knee pain, unspecified chronicityStart: 05-20-2024 End: 90-22-6026Pzeugkrhkq hospital visit by physicianHelen Dillon 1 Work Phone: RadiologyComment on above:Left knee pain, unspecified chronicity [M25.562]Start: 05-19-2024 End: 03-48-0569Jhnklr outpatient visit 25 minutesDenrebecca Treviño DO Work Phone: [facility] - Family MedicineComment on above:Acute deep vein thrombosis (DVT) of brachial vein of left upper extremity (CMS-HCC) (Primary Dx); Localized osteoarthritis of right knee; Essential hypertension; Obesity, morbid (CMS-HCC); Need for immunization against influenzaStart: 05-19-2024 End: 84-52-6191kevgzntknwLFXSWOMethodist Hospital [facility] Ambulatory PPGStart: 05-18-2024 End: 26-54-1313Mqhagpr encounter procedureEmrashard Murphy DO Work Phone: RheumatologyComment on above:Systemic lupus erythematosus, unspecified SLE type, unspecified organ involvement status (HCC) (Primary Dx)Start: 05-16-2024 End: 92-17-1104ohffgldifmYSQYEVITriHealth Bethesda Butler Hospitaltart: 05-16-2024 End: 17-16-8363Wdsadolrfq hospital visit by physicianHold[facility] [place] Hqx8077 Cr Nonv1 Bp/HolterUH [facility] Medical CenterComment on above:ArrivedStart: 05-16-2024 End: 60-27-1883Osurgmpid encounterSammantha Cerda PTNOMS CI PTComment on above:re: PT's this week (She had called and lm noting this week she is busy w/ scheduled doctor appts and the 2 PT's scheduled she is unable to attend. She said Thursday she has a fu w/ referring provider and noted she'd contact after that w/ recommendation.)Start: 05-16-2024 End: 30-96-9469knmneabwyeUZVLSXKTriHealth Bethesda Butler Hospitaltart: 05-16-2024 End: 97-31-5440Phetws outpatient visit 25 [facility] Vincent RIGGING MAN-GUIDE EXCURSION Work Phone: [facility] Health SystemsComment on above: Paroxysmal atrial fibrillation (Multi) (Primary Dx)Start: 05-12-2024 End: 24-25-7901Rfmkkf flowsAmberjoseph Kendall PTANOMS CI PTStart: 05-12-2024 End: 57-08-3601Vonari flowsheetTatojoseph Kendall PTANOMS CI PTStart: 05-12-2024 End: 93-83-1759spgtbdcmfzWriohxq Lawrence PTANOMS CI PTComment on above: Unilateral primary osteoarthritis, left knee (Primary Dx)Start: 05-09-2024 End: 29-88-3542Ownebh flowsheetSammantha Cerda PTNOMS CI PTStart: 05-09-2024 End: 13-76-8496Vvaxge flowsheetSammantha Cerda PTNOMS CI PTStart: 05-09-2024 End: 83-22-4146xzyhhyxdwpEPXWSZEYY SCHNEIDERNOMS HealthcareComment on above: Unilateral primary osteoarthritis, left knee (Primary Dx)Start: 04-21-2024 End: 68-24-2597VvwkvaFsyals [facility] LakeView HospitalMediok Physicians Internal Medicine - Family MedicineStart: 04-19-2024 End: 76-65-7844Jurgkwozx encounterEmrashard Murphy DO Work Phone: RheumatologyStart: 04-19-2024 End: 84-99-1900rpxxxaidbtZbct Chair Kenton Sawyer Work Phone: InfusionComment on above:Systemic lupus erythematosus, unspecified SLE type, unspecified organ involvement status (HCC) (Primary Dx) Start: 04-16-2024 End: 13-49-6616Hkigwxugk encounterCristaddie Berumen [facility] Comment on above:ResultsStart: 04-14-2024 End: 85-65-1809muabasculdPhy ProviderInfusionComment on above:Infusion Thursday04/19/24Start: 04-14-2024 End: 77-78-4111W-mail encounter from [facility] ProviderInfusionStart: 04-07-2024 End: 05-90-9358Oapjcaugu for other preprocedural examinationNationwide Children's Hospitaltart: 04-07-2024 End: 65-08-1210Uroigocere and management of inpatientVeterans Health Administrationtart: 04-07-2024 End: 75-19-4562Wqetabm encounter statusJuan Chino MD Work Phone: [facility] Work Phone: Start: 04-07-2024 End: 88-04-3958Wcjewsbygp hospital visit by physicianJuan Chino MD Work Phone: [facility] MatherComment on above: Paroxysmal atrial fibrillation (Multi); Epistaxis; Anemia, unspecified type; Preop testingStart: 03-30-2024 End: 47-41-8883Qtajor outpatient visit 25 minutesWojciech Treviño DO Work Phone: [facility] - Family MedicineComment on above:Essential hypertension (Primary Dx); Localized osteoarthritis of left knee; Varicose veins of left upper extremity; Localized swelling, mass and lump, head; Mixed hyperlipidemia; Acquired hypothyroidism; Hyperparathyroidism ([facility]-HCC); Obesity, morbid ([facility]-HCC); Encounter for screening mammogram for malignant neoplasm of breast; AnxietyStart: 03-30-2024 End: 04-49-5024BovvmrIpfb Cooper CMAUniversity Hospitals Ahuja Medical Center Physicians Internal Medicine - Family MedicineStart: 03-28-2024 End: 41-20-8861Uialrheykl hospital visit by physician [facility] LoraRadiologyComment on above: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]Start: 15-60-1356Nrptbinvx for other preprocedural examinationJUAN LOVEUC West Chester Hospitaltart: 03-21-2024 End: 95-58-3201Zwdpncn encounter statusJuan Chino MD Work Phone: [facility] Work Phone: Start: 03-21-2024 End: 35-98-9548AuvvbdYzbh Cooper CMAUniversity Hospitals Ahuja [facility] Center Physicians Internal Medicine - Family MedicineStart: 03-19-2024 End: 41-29-9444OrvurxGemzoh G Furlong DO Work Phone: [facility] Internal Medicine - Family MedicineStart: 86-31-7984dfbdajqvvcFyqaiadcHumera Ann PA-C Work Phone: bone CenterComment on above:Knee XrayStart: 03-17-2024 E-mail encounter from Kizzy Ann PA-C Work Phone: bone CenterStart: 32-18-6123tnixsyaqaySqfbg Susan Murphy DO Work Phone: RheumatologyComment on above:Muscle painStart: 71-06-7481Q-mail encounter from caregiverCcPrisma Health [facility] CStart: 19-95-7814Qpfdndg encounter procedureCcf [facility] CComment on above:Appointment Rescheduled to 06/10/24Start: 03-15-2024 End: 06-11-8438Dyidkgexvy hospital visit by Goldie Main U57EdsazyfucBnjvpah on above:Osteopenia of multiple sites [M85.89]Start: 03-15-2024 End: 15-66-0485Vldgjrw encounter Taylor Ann PA-C Work Phone: [facility] CenterComment on above:Osteopenia of multiple sites (Primary Dx); S/P parathyroidectomy; prison (current) use of 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; Acute pain of left kneeStart: 03-15-2024 End: 00-71-6368Hmfehlgnfw hospital visit by physicianJuanito Junior Main [address] 2 RadiologyComment on above:Osteopenia, unspecified location [M85.80]Start: 18-00-0337beaqvbpmzsPjcuey Leone MD Work Phone: GastroenterologyComment on above:MedicationRefill RequestStart: 02-23-2024 End: 81-66-7644nqeyrtuorxZxgb Chair [address] Work Phone: InfusionComment on above:Systemic lupus erythematosus, unspecified SLE type, unspecified organ involvement status (HCC) (Primary Dx) Start: 67-70-6529glmfpgrtpeIpe ProviderInfusionComment on above:Infusion for 02/22 Start: 33-10-4390V-mail encounter from caregiverf ProviderInfusionStart: 88-43-8439KaciigIldnbu Leone MD Work Phone: GastroenterologyComment on above:Refill RequestStart: 02-16-2024 End: 24-70-4396Lnopiyuwv encounterWojciech Treviño DO Work Phone: [facility] - Family MedicineStart: 02-16-2024 End: 98-84-5438anodrbssrgTCGDYP G [facility] Ambulatory PPGStart: 02-16-2024 End: 10-39-2294Gzpqssi encounter procedureWojciech Treviño DO Work Phone: [facility] Phys[facility] Internal Medicine - Family MedicineComment on above:Medicare annual wellness visit, subsequent (Primary Dx); Screening for depressionStart: 02-15-2024 End: 78-81-0553cpmriqaqyiPKWLGRAOhioHealth Dublin Methodist Hospitaltart: 02-15-2024 End: 91-80-9014Zsikua outpatient visit 25 minutesDavid [facility] Vincent RIGGING MAN-GUIDE EXCURSION Work Phone: uh [facility] Medical CenterComment on above: Paroxysmal atrial fibrillation (Multi) (Primary Dx)Start: 91-55-4977RcvzfaKktqqa Leone MD Work Phone: GastroenterologyComment on above:Refill Request (protonix)Start: 01-05-2024 End: 52-36-2161ygumhqxtatJZBSXERD S ARRUDAAdams County Hospitaltart: 01-05-2024 End: 99-75-4163Dxelymdoph hospital visit by Reilly Chino MD Work Phone: uh [facility] MatherComment on above: Persistent atrial fibrillation (Multi); Atypical atrial flutter (Multi)Start: 01-04-2024 End: 95-78-5926psgsrbjdjpQPJAPSNorwalk Memorial Hospitaltart: 12-29-2023 End: 84-82-0400Vojgrfv encounter procedureRadu Salazra MD Work Phone: Kidnji MedicineComment on above:Stage 3a chronic kidney disease (HCC) (Primary Dx); Membranous glomerulonephritis; Lupus nephritis, ISN/RPS class V (HCC); Screening for genitourinary condition; Hypertension, unspecified typeRefill RequestStart: 06-06-4295Cxjksx OnlyEmily A Radames DO Work Phone: RheumatologyStart: 43-19-9869Pizbfgovk encounterNurse Rena [facility] Digna Work Phone: InfusionStart: 12-25-2023 End: 56-29-9922zhpqzwwxscKluxd A Radames DO Work Phone: RheumatologyComment on above:Systemic lupus erythematosus, unspecified SLE type, unspecified organ involvement status (HCC) (Primary Dx)Start: 12-25-2023 End: 55-56-8288Ywkaazqyhftq consultation with patientNadege Murphy DO Work Phone: RheumatologyStart: 12-24-2023 End: 33-92-2182Metzrt OnlyNadege Murphy DO Work Phone: RheumatologyComment on above:Systemic lupus erythematosus, unspecified SLE type, unspecified organ involvement status (HCC) (Primary Dx)Start: 46-51-1153jrxcfdbsenIin ProviderInfusionComment on above: Infusion for 12/23Start: 80-51-0297I-mail encounter from caregiverThe Medical Center Provider InfusionStart: 12-22-2023 End: 49-51-5210Dluseas encounter procedureDione Frances MD Work Phone: GastroenterologyComment on above:Diarrhea, unspecified type (Primary Dx); Other ulcerative colitis without complication (HCC)Start: 92-95-1979Ezmovn Only Nadege Murphy DO Work Phone: RheumatologyComment on above:Rheumatology labsStart: 87-52-0987SsjgcgYrrovl Leone MD Work Phone: GastroenterologyComment on above:Refill RequestRefill Start: 12-14-2023 End: 93-78-3246VyqqymDzcahv G Furlong DO Work Phone: [facility] - Family MedicineStart: 12-08-2023 End: 98-63-6337Vajbpcv encounter procedureBeverly Franco DPM Work Phone: PodiatryComment on above:Pre-ulcerative calluses (Primary Dx); Osteoarthritis of midtarsal joint of left foot; Hammertoe, bilateral; Hav (hallux abducto valgus), unspecified laterality; Pain due to onychomycosis of toenails of both feetStart: 11-26-2023 End: 45-04-9165Ungmibraq to same day surgery centerDO Wojciech Treviño Work Phone: [facility]-Procedure Outpatient Work Phone: Start: 11-26-2023 End: 00-15-1494fxdrntzgxvZX Wojciech Treviño Work Phone: [facility] Work Phone: Start: 11-16-2023 End: 55-85-1380nkjzukrmhwQDDUQWHMCincinnati VA Medical Centertart: 11-16-2023 End: 55-53-7381Nyvfrc outpatient new 45 Farida Chino MD Work Phone: [facility] Health SystemsComment on above: Atypical atrial flutter (CMS/HCC) (Primary Dx); Paroxysmal atrial fibrillation (CMS/HCC); At medium risk for stroke; Post-menopausal bleeding; EpistaxisStart: 11-09-2023 End: 52-59-3180Qsepfimuprrr / ancillary services managementKalyn Anthony [facility]oshone Medical CenterComment on above:Paroxysmal atrial fibrillation (CMS/HCC)Start: 10-29-2023 End: 34-85-7456Physju outpatient visit 25 minutesYuriy Conway MD Work Phone: [facility] SouthComment on above:Paroxysmal atrial fibrillation (CMS/HCC) (Primary Dx); High risk medication use; Essential hypertension; 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; Obstructive sleep apnea; BMI 40.0-44.9, adult (CMS/HCC); Never smoked any substance; Systemic lupus erythematosus, unspecified SLE type, unspecified organ involvement status (CMS/HCC)Start: 82-56-9132Awsnawkon encounterEmrashard Murphy DO Work Phone: RheumatologyComment on above:ResultsStart: 10-23-2023 End: 04-44-4848Whlyybikln hospital visit by physician [facility] (Istat/1.5) Work Phone: [facility] Radiology MRIComment on above:Pancreatic cyst [K86.2]Start: 10-13-2023 End: 64-51-3591Knjxfej encounter procedureAnnmarie Marissa PA-C Work Phone: Bonv CenterComment on above:Osteopenia, unspecified location (Primary Dx); S/P parathyroidectomy; prison (current) use of 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; Vitamin D deficiency diseaseStart: 10-09-2023 End: 41-15-5512Equukkh encounter procedureBeverly Franco DPM Work Phone: PodiatryComment on above:Pre-ulcerative calluses (Primary Dx); Osteoarthritis of midtarsal joint of left foot; Osteoarthritis of midtarsal joint of right footStart: 10-01-2023 End: 92-58-3238yrpvgzvunbBksx Chair [address] Work Phone: InfusionComment on above:Systemic lupus erythematosus, unspecified SLE type, unspecified organ involvement status (HCC) (Primary Dx) Start: 90-06-3696Wczyrngwu encounterToms Arnulfo CHILDERS Work Phone: General SurgeryComment on above:OrdersStart: 49-47-9134Hiczse OnlyEmily Susan Murphy DO Work Phone: RheumatologyComment on above:Infusion for 10/01/23 Start: 36-96-7424Rzsiay Vanessa Staley RIGGING MAN-RETORT PRE COOKER Work Phone: [facility] - Family MedicineStart: 17-00-9992DknylrAubl Rose Kuns RIGGING MAN-RETORT PRE COOKER Work Phone: [facility] - Family MedicineStart: 09-21-2023 End: 29-76-5491Yvhfkytjn to same day surgery centerDO Wojciech Treviño Work Phone: [facility]-Electrodiagnostics Work Phone: Start: 09-21-2023 End: 72-26-7520mguleppyskAF Wojciech [place] Work Phone: [facility] Work Phone: Start: 09-17-2023 End: 04-74-5292Aurwhx outpatient visit 40 minutesYuriy Conway MD Work Phone: uh [facility] HospitalComment on above:Atypical atrial flutter (CMS/HCC) (Primary Dx); Paroxysmal atrial fibrillation (CMS/HCC); Essential hypertension; Obstructive sleep apnea; Never smoked any substance; Other forms of systemic lupus erythematosus, unspecified organ involvement status (CMS/HCC); Morbid obesity (CMS/HCC); High risk medication use; DyslipidemiaStart: 27-15-3929UcbtauKahvwv G Furlong DO Work Phone: [facility] - Family MedicineStart: 09-01-2023 End: 31-10-1479Pzuabt outpatient visit 15 minutesCha Miller Luís ALVAREZ-RETORT PRE COOKER Work Phone: [facility] Medicine - Family MedicineComment on above:Viral upper respiratory tract infection (Primary Dx) Start: 08-27-2023 End: 11-29-4918plewxfmeioKZXYD FAZIONot AvailableStart: 00-60-9171Ywhfec Only Wojciech Santanacynthiamolly DO Work Phone: [facility] - Family MedicineStart: 08-05-2023 End: 21-01-5456ewjflyuifzJIBTH FAZIONot AvailableStart: 54-36-9258pwtaltzhcy Delfino Jones DPM Work Phone: OrthopaedicsStart: 96-83-1287Fakgasljy encounter Delfino Jones DPM Work Phone: OrthopaedicsComment on above:Surgical FollowupStart: 55-37-5987Kzdeibrcr encounterDelfino Jones DPZach Work Phone: OrthopaedicsComment on above:Surgical FollowupStart: 07-02-2023 End: 18-79-7416Ayaulp OnlyBeverly Franco DPM Work Phone: PodiatryComment on above:Pain in left foot (Primary Dx)Ulcer of toe of right foot, limited to breakdown of skin (HCC) (Primary Dx); Pre-ulcerative calluses; Osteoarthritis of midtarsal joint of left foot; Osteoarthritis of midtarsal joint of right footStart: 07-01-2023 End: 11-83-7360jrojrvrgoxIece Chair [address] Work Phone: InfusionComment on above:Systemic lupus erythematosus, unspecified SLE type, unspecified organ involvement status (HCC) (Primary Dx); High risk medication useStart: 81-00-0439Brgfcz OnlyEmily A Radames DO Work Phone: RheumatologyStart: 11-86-9392VosqagNfztmr Leone MD Work Phone: GastroenterologyComment on above:Refill RequestStart: 43-81-2621Eygmpxdzs encounterHeather Gruber PA-C Work Phone: [facility] Rhe[facility] InstituteComment on above:Medication QuestionStart: 79-60-9281ifqtgmwwbfNkyac A Radames DO Work Phone: RheumatologyComment on above:Missed appt and test Start: 90-06-4996Viylad SebastianMaryajoey Staley CNP Work Phone: Hematology/OncologyComment on above:Mixed hyperlipidemia (Primary Dx); HypomagnesemiaStart: 09-34-9318JlygutTbuxhj Leone MD Work Phone: GastroenterologyComment on above:Refill RequestStart: 04-15-2023 End: 30-88-4351Jvvfkcr encounter Vikram Frances MD Work Phone: GastroenterologyComment on above:Other ulcerative colitis without complication (HCC) (Primary Dx); Gastroesophageal reflux disease without esophagitisStart: 04-10-2023 End: 08-45-2661xgwiudofzzGwbao A Radames DO Work Phone: RheumatologyComment on above:Systemic lupus erythematosus, unspecified SLE type, unspecified organ involvement status (HCC) (Primary Dx); Thin blood (HCC)Start: 04-10-2023 End: 77-40-2003Cwstjuignxpv consultation with Saroj Murphy DO Work Phone: [facility] MAINStart: 55-12-1663Jdnonbane encounterDione Frances MD Work Phone: GastroenterologyComment on above:Results (Colon)Start: 04-02-2023 End: 76-95-8254Fgtnhssdrm hospital visit by physicianDione Frances MD Work Phone: Ambulatory SurgeryComment on above:IBD (inflammatory bowel disease) [K52.9]Start: 03-19-2023 End: 00-95-3850zruwoggbgpXzfg Chair [address] Work Phone: InfusionComment on above:Systemic lupus erythematosus, unspecified SLE type, unspecified organ involvement status (HCC) (Primary Dx) Start: 43-40-3673ykxnuqnzsyIxu ProviderInfusionComment on above:Infusion for 03/19 Start: 66-40-5096R-mail encounter from caregiverCcf ProviderCCF EDI FHCStart: 85-95-2073ItgtfxPxcmjd Leone MD Work Phone: GastroenterologyComment on above:Refill RequestStart: 03-12-2023 End: 47-31-1973Hswietp encounter procedureBeverly Franco DPM Work Phone: PodiatryComment on above:Ulcer of toe of right foot, limited to breakdown of skin (HCC) (Primary Dx); Pre-ulcerative callusesStart: 05-14-1936Lvydsmtxd encounterDione Frances MD Work Phone: GastroenterologyComment on above:AppointmentStart: 60-75-9015AzqwtnFkjb Hajj Ali MD Work Phone: RheumatologyComment on above:Refill RequestStart: 61-15-2603Zexwvakkh encounterDione Frances MD Work Phone: GastroenterologyComment on above:Results (labs)Start: 02-12-2023 End: 56-04-2499Ikthamy encounter procedureBeverly Franco DPM Work Phone: PodiatryComment on above:Ulcer of toe of right foot, limited to breakdown of skin (HCC) (Primary Dx); Pre-ulcerative calluses; Cellulitis of second toe of right footStart: 53-34-1546QynihcMwcvc Khalil MD Work Phone: CardiologyComment on above:Refill Request; Follow Up Start: 79-08-0047Tdsjvkkow encounterMonica Booker MD Work Phone: endocrine SurgeryComment on above:ResultsStart: 37-13-8502Gjspuu OnlyEmily A Radames DO Work Phone: RheumatologyStart: 02-04-2023 End: 21-74-0032Wptytby encounter procedureEmily A Radames DO Work Phone: RheumatologyComment on above:Systemic lupus erythematosus, unspecified SLE type, unspecified organ involvement status (HCC) (Primary Dx); Need for vaccination against Streptococcus pneumoniaeStart: 01-22-2023 End: 96-21-5400Amromfv encounter procedureBeverly Franco DPM Work Phone: PodiatryComment on above:Ulcer of toe of right foot, limited to breakdown of skin (HCC) (Primary Dx); Pre-ulcerative callusesStart: 78-37-1087HjoifsVfpspr Leone MD Work Phone: GastroenterologyComment on above:Refill Request (colestipol)Start: 12-15-2022 End: 79-92-0712ubdssacigtRshi Chair Wilfredo Sawyer Work Phone: InfusionComment on above:Systemic lupus erythematosus, unspecified SLE type, unspecified organ involvement status (HCC) (Primary Dx); High risk medication useStart: 77-14-4507Sgxxsnj encounter procedureDione Frances MD Work Phone: GastroenterologyComment on above:Office visitStart: 23-81-2901nduoppxzarFpjv Hajj Ali MD Work Phone: InfusionComment on above:Infusion ConfirmationStart: 84-23-3873M-mail encounter from Nyla Alicea MD Work Phone: [facility] FHCStart: 90-48-8632XloiehKxivzr Leone MD Work Phone: GastroenterologyComment on above:Refill Request (iron) Start: 59-09-2872RktslfZshbpe Leone MD Work Phone: GastroenterologyComment on above:Refill RequestStart: 29-92-0207ldcbkkdgcsIdjbpwrfqjy W Herbert DPM Work Phone: OrthopaedicsStart: 80-35-2320Glmetzxlu encounter Delfino Jones DPM Work Phone: OrthopaedicsComment on above:Surgical FollowupStart: 69-74-2700ifgorbjzgzAvjddk Leone MD Work Phone: GastroenterologyComment on above:Diarrhea and stomach acidStart: 86-33-6770cxmqcksjwqYkcnzv Leone MD Work Phone: GastroenterologyComment on above:ColestipoleStart: 46-88-2547Btcmuqyta encounterChristopher Ozeil Jones DPM Work Phone: OrthopaedicsComment on above:Surgical FollowupStart: 10-16-2022 End: 95-69-5649Neyjut outpatient visit 15 minutesObdulia Ann PA-C Work Phone: Bonu CenterComment on above:Osteopenia, unspecified location (Primary Dx); S/P parathyroidectomy (HCC); prison (current) use of 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Start: 29-30-6314uisssyzuxeEywnjf Leone MD Work Phone: GastroenterologyComment on above:ColestipolStart: 49-38-0968lgywiqtpsmOyvnlo Leone MD Work Phone: GastroenterologyComment on above:CdifStart: 09-28-2022 End: 45-18-9672skxwclutfxBK WOJCIECH Mcghee FURLONGFacility:E8Nfiws: 48-28-7474Oy RenewalDenrebecca Mcghee Furlong Work Phone: [phone]-ZjwqsEssentia Healthusky 250 DO Work Phone: Start: 26-64-4269JglesqAzdypi Leone MD Work Phone: GastroenterologyComment on above:Refill Request (Lialda)Start: 31-50-4402QeatibBvildt Battle APRN.GUIDE EXCURSION Work Phone: CardiologyComment on above:Refill RequestStart: 47-43-4474Miopn UpdateDnicolasa Mcghee Furlong Work Phone: [phone]-NrzsoHendricks Community Hospitaly 250 DO Work Phone: Start: 96-72-4269hflytmwoyvIrAjay Yan Wlpibz4a Facility:[id number]: 22-70-7655Jyrddfm encounter Logan Santanalong Work Phone: [phone]-MnhooKittson Memorial Hospital [address] [place] Work Phone: Start: 87-81-0567Vaqcdrihl encounterMonica Booker MD Work Phone: endocrine SurgeryComment on above:ResultsStart: 09-15-2022 End: 92-77-1954hmzhukuuypLtyk Chair 4 Digna Work Phone: InfusionComment on above:Systemic lupus erythematosus, unspecified SLE type, unspecified organ involvement status (HCC) (Primary Dx) Start: 99-48-0678Kfmvoyosa encounterEvelin Alicea MD Work Phone: InfusionComment on above:Patient Question (I spoke to Jesus and she will be coming for her infusion on Thursday09-15-22. She states that she had parathyroid surgery since her last infusion. She has had a follow up apt with her PCP, and her incision is healed. She was not on any antibiotics for this procedure. She denies having been sick or on any recent antibiotics. ) Start: 28-56-3016Oc RenewalWojciech Treviño Work Phone: [phone]-OmolwMeeker Memorial Hospital 600 DO Work Phone: Start: 90-63-9806DoyrjzFahhkm Leone MD Work Phone: GastroenterologyComment on above:Refill RequestStart: 84-37-7013Pqjoaeqho encounterMonica Booker MD Work Phone: Endocrine SurgeryComment on above:Patient UpdateStart: 30-57-0296Mhqwdlglm for preprocedural laboratory examinationDR DOCTOR MAHARAJWhite Hospital HospitalStart: 59-78-8959Swoaklehv encounterMonica Booker MD Work Phone: Endocrine SurgeryComment on above:Results (Covid) Start: 08-25-2022 End: 51-28-5852Adypxa OnlyMonica Booker MD Work Phone: [phone] SurgeryComment on above:Hyperparathyroidism (HCC) (Primary Dx)Start: 08-25-2022 End: 25-84-4357Wxwdzitdu for preprocedural laboratory examinationDR [facility] Facility:F0Lslld: 81-47-0292Becyjahvr encounterMonica Booker MD Work Phone: [phone] SurgeryComment on above:Patient Update Preparations For SurgeryStart: 21-87-9981kphhfhnpspGuAjay Sotom Facility:[id number]: 17-07-6931Gjflsdybx encounterMonica Booker MD Work Phone: Endocrine SurgeryComment on above:Suspect Artist - OtherStart: 49-23-1883Obwfvcimv for other preprocedural examinationDr. Yuriy SotoProHealth Memorial Hospital Oconomowoctart: 67-63-8279fjszqwgixmMc. Hassan Ibrahi0m Facility:[id number]: 55-26-1164Ktbpqr consultation new/estab patient 80 minDnicolasa Lobatong Work Phone: [phone]-EklsbKittson Memorial Hospital 250 DO Work Phone: Start: 48-49-5551Hncnfk outpatient new 60 minutes Wojciech Treviño Work Phone: [facility] Work Phone: Start: 82-29-4383Hfrdwwp encounter procedureWojciech Treviño Work Phone: [phone]-JaqmuLifeCare Medical Center 250 DO Work Phone: Start: 07-31-2022 End: 53-41-9006Anrxmpddf to [facility] 2 Work Phone: CCCOMPASS MEMORIAL HEALTHCAREtart: 07-31-2022 End: 26-64-4722uglcphhydoDqod [place] 2 Work Phone: pre AnesthesiaComment on above:Pre-op evaluation (Primary Dx); Ascending aortic aneurysm, unspecified whether ruptured; Obesity, Class II, BMI 35-39.9; Mixed hyperlipidemia; Acquired hypothyroidism; Chronic diastolic congestive heart failure (HCC); Obstructive sleep apnea syndrome; Systemic lupus erythematosus, unspecified SLE type, unspecified organ involvement status (HCC); Fibromyalgia; Essential hypertension; Paroxysmal atrial fibrillation (HCC); Obesity, Class III, BMI >= 40Start: 07-31-2022 End: 33-54-2828Jtcxkjanvwenq examination [facility] 2 Work Phone: pre AnesthesiaStart: 77-21-1534Pfbdkhhhh encounter Dione Frances MD Work Phone: GastroenterologyComment on above:OrdersStart: 64-11-2706kfuitrvmnhMbfnox Peechakara MD Work Phone: EndocrinologyComment on above:Zoom appt.Start: 07-07-2022 End: 78-01-7544Yvnddo Eliud Booker MD Work Phone: endocrine SurgeryComment on above:Primary hyperparathyroidism (HCC) (Primary Dx)Hyperparathyroidism (HCC) [E21.3] Hypercalcemia; Hyperparathyroid (HCC)Start: 79-81-6325Aqoqhmleón Booker MD Work Phone: endocrine SurgeryComment on above:Hyperparathyroidism (HCC) (Primary Dx)Consult (Face Sheet)Start: 01-97-8579twlbdawqddLtplCandace Underwood MD Work Phone: Endocrinology BMIComment on above:Pancreas checkStart: 91-49-6491iaizebonnzGkdy Laney Alicea MD Work Phone: RheumatologyComment on above:Blood work resultsStart: 06-12-2022 End: 04-56-6262vixdzzalqxOhcy Chair 6 Main Work Phone: RheumatologyComment on above:Systemic lupus erythematosus, unspecified SLE type, unspecified organ involvement status (HCC) (Primary Dx); Hyperparathyroid (HCC)Start: 06-11-2022 End: 82-17-6294Xqyaule encounter Gray Bejarano MD Work Phone: EndocrinologyComment on above:Hypercalcemia; Hyperparathyroid (HCC)Start: 79-47-3597treqhcpvdxVwjkCandace Underwood MD Work Phone: Endocrinology BMIComment on above:MRIStart: 05-19-2022 ambulatoryChristopher Oziel Jones DPM Work Phone: OrthopaedicsStart: 07-92-5358Uvmuljzov encounter Delfino Jones DPM Work Phone: OrthopaedicsComment on above:Surgical FollowupStart: 16-94-4261TtbmniFxslne Leone MD Work Phone: GastroenterologyComment on above:Refill RequestRefill Start: 05-12-2022 End: 96-11-6205dklqofljcwXsodvize Rosa PA-C Work Phone: Bonr CenterComment on above:Osteopenia, unspecified location (Primary Dx); Balance problem; Hypercalcemia; Hyperparathyroid (HCC)Start: 05-12-2022 End: 95-38-7967Evfqakrobwtk consultation with patientObdulia Peña ISELA Work Phone: ccf [facility] MAINStart: 59-45-8766AT Get Medical AdviceDione Frances MD Work Phone: GastroenterologyComment on above:RefillRefill Request Start: 04-18-2022 End: 61-55-1023Oahmwka encounter procedureObdulia Mariana WEISS Work Phone: bone CenterComment on above:Osteopenia, unspecified location (Primary Dx); Vitamin D deficiency disease; Serum calcium elevated; Balance problemStart: 63-41-7274Mseesf Ming Ramos MD Work Phone: CardiologyComment on above:Hypertrophic obstructive cardiomyopathy (HCC) (Primary Dx)Start: 83-36-3768dlusvdlvpqMbrw Hajj Ali MD Work Phone: RheumatologyComment on above:MedsStart: 03-17-2022 Sakshi Alicea MD Work Phone: RheumatologyComment on above:Calcium levelStart: 83-04-6792X-mail encounter from Nyla Alicea MD Work Phone: ccf [facility] MAINStart: 03-13-2022 End: 56-80-5049Xcvjixd encounter procedureBone Density ProdigyCCF [facility] MAINStart: 03-13-2022 End: 10-87-6451Igzyrue evaluation of patient and reportNurse Rena Main Work Phone: RheumatologyStart: 03-13-2022 End: 52-26-0212nraaaikyrzXknc Chair 5 Main Work Phone: RheumatologyComment on above:Systemic lupus erythematosus, unspecified SLE type, unspecified organ involvement status (HCC) (Primary Dx); Membranous lupus nephritis syndrome (HCC); High risk medication use; Encounter for prophylactic measures, unspecifiedRadiology BMDStart: 03-13-2022 End: 02-60-2205Vucmssb encounter procedureEvelin Alicea MD Work Phone: RheumatologyComment on above:Membranous lupus nephritis syndrome (HCC) (Primary Dx); High risk medication use; Systemic lupus erythematosus, unspecified SLE type, unspecified organ involvement status (HCC); Asymptomatic postmenopausal statusStart: 48-38-5810iytybogqsvMff Provider RheumatologyComment on above:Covid testStart: 54-53-8875T-mail encounter from [facility] ProviderCCF [facility] MAINStart: 65-95-5862Gkfiediks encounterEvelin Alicea MD Work Phone: RheumatologyComment on above:Orders (Evusheld)Start: 86-60-9046Mpedfxsrd encounterDione Frances MD Work Phone: GastroenterologyComment on above:Results; OrdersStart: 16-05-9932SjyprxTqrv Hajj Ali MD Work Phone: RheumatologyComment on above:Refill RequestStart: 11-29-4027Vytmfqbyu encounterDione Frances MD Work Phone: GastroenterologyComment on above:ResultsStart: 28-49-5056mwsamrjiztZlrzlb Leone MD Work Phone: GastroenterologyComment on above:Return callStart: 42-43-7896tgqzrtcskjNrvrhy Leone MD Work Phone: GastroenterologyComment on above:Er visitPrescription Start: 02-13-2022 End: 26-02-6270fjqpwapvfwZE STEPHEN G REINECKFacility:H3Bpzlq: 02-13-2022 End: 73-17-2267Rrpqqcgov department patient visitDO Wojciech Treviño Work Phone: [facility]-Emergency RoomStart: 02-07-2022 End: 59-12-8742Qhjrfuifqu and management of inpatientDO Wojciech Treviño Work Phone: [facility]-[address] [place] Med SurgStart: 05-88-4970mrlqpgipvwGwykkw Leone MD Work Phone: GastroenterologyComment on above:QuestionsStart: 16-54-3712econhvkjkbHjnpzb Leone MD Work Phone: [facility] MCStart: 75-68-9720Vxhzzem encounter procedureDione Frances MD Work Phone: GastroenterologyComment on above:Appointment KIM Start: 18-78-0519NhxjvxJik Chung MD Work Phone: CardiologyComment on above:Refill RequestStart: 57-29-8196BE Get Medical AdviceDione Frances MD Work Phone: GastroenterologyComment on above:Med refillStart: 95-32-1786WO Get Medical AdviceDione Frances MD Work Phone: GastroenterologyComment on above:RefillStart: 12-09-2021 End: 91-47-1263Ulqbbld encounter Landon RUIZ Work Phone: RheumatologyComment on above:Systemic lupus erythematosus, unspecified SLE type, unspecified organ involvement status (HCC) (Primary Dx); High risk medication use; Long-term use of PlaquenilStart: 12-09-2021 End: 73-01-4060qggragwqopZqyx Chair 4 Main Work Phone: RheumatologyComment on above:Systemic lupus erythematosus, unspecified SLE type, unspecified organ involvement status (HCC) (Primary Dx); High risk medication useStart: 77-92-4901LF Get Medical AdviceDione Frances MD Work Phone: GastroenterologyComment on above:RefillStart: 09-12-2021 End: 11-22-7095Dhnauqojcn hospital visit by Shilpi Frances MD Work Phone: Ambulatory SurgeryComment on above:Diarrhea, unspecified type [R19.7]Start: 01-04-2021 End: 68-38-2779Vovculmwzf hospital visit by physicianHelen Dillon 1 Work Phone: RadiologyComment on above:Post-op pain [G89.18]Start: 11-29-2020 End: 88-62-0491Rcemrxcxwb hospital visit by physicianHelen Dillon 1 Work Phone: RadiologyComment on above:Pain in right hip [M25.551] Start: 09-03-2020 End: 52-56-4180Kfarozjgyc hospital [facility] by physician [facility] LoraRadiologyComment on above:Calculus of gallbladder without cholecystitis without obstruction [K80.20]Start: 04-26-2020 End: 73-25-6232Xwilmxdpsg hospital visit by physicianHelen Dillon 1 Work Phone: RadiologyComment on above:Pain [R52]Start: 10-12-2018 Patient encounter procedureHASSAN IBRALANIMFacility:1532Start: 37-90-5143Epsetzh encounter procedureHASSYASSINE CONWAYFacility:1532Preoperative stateDbipinis G Furng Work Phone: [phone]-JwbwuLifeCare Medical Center 250 DO Work Phone: Procedures DateProcedureProcedure DetailPerforming ClinicianStart: 99-61-1387Ubtmdicntduemm aspir&/inj major jt/bursa w/o usAlshilpa Childress MD Work Phone: Start: 06-72-0722Pq lower extremity w/o contrast Jannet Hall MD Work Phone: Start: 69-12-7657Tcxfo foot complete minimum 3 views Beverly Franco DPM Work Phone: Start: 64-54-0338Vffrw foot complete minimum 3 views Beverly Franco DPM Work Phone: Start: 64-83-3236Ywvna depression screening assessment Wojciech Furlong DO Work Phone: Start: 85-76-1621Ezk routine ecg w/least 12 lds w/i&r Yuriy Conway MD Work Phone: Start: 90-65-8161Luatvhzhailclc aspir&/inj major jt/bursa w/o usDennis G Maxlong DO Work Phone: Start: 08-86-4093Nkrms depression screening assessment Wojciech Furlong DO Work Phone: Start: 83-41-2951Pshbglbivjunlea echocardiography Wojciech Santanalong DO Work Phone: Start: 87-88-7889GE of chestDennis Maxlong DO Work Phone: Start: 96-37-4448Vobqt chest X-rayDenrebecca Lobatong DO Work Phone: Start: 98-89-9242Xvy routine ecg w/least 12 lds w/i&r Yuriy Conway MD Work Phone: Start: 00-40-9718Hgknzkhqj streptococcus group aDenrebecca Santanalong DO Work Phone: Start: 78-77-9139Heveo depression screening assessment Wojciech Furlong DO Work Phone: Start: 56-84-7793Kacvm depression screening assessment Wojciech Furlong DO Work Phone: Start: 70-47-4243Ftkjumsqsitwdw aspir&/inj major jt/bursa w/o Dre Childress MD Work Phone: Start: 65-80-3428Rvoxmhghnx examination knee 1/2 views Alfredo Norwood PA-C Work Phone: Start: 07-77-5039WsriyryagmvHfowgshs Cowell CMAStart: 06-35-4372Ozpkbevffvf time activatedInterface Unspecifiedprovider Work Phone: Start: 22-21-0800Mt heart contrast eval cardiac structure&morphMaurictc Chino MD Work Phone: Start: 27-80-7083Hdfzia-up visitFollow-upDENN Taz FURLONGStart: 25-59-2942Voqpw depression screening assessmentMonica Theodore [facility] Start: 44-17-2069Nwodn 1996 panel - Serum or PlasmaRheu Digna Work Phone: Start: 85-69-0320Todqliotku exam knee complete 4/more viewsObdulia Ann PA-C Work Phone: Start: 67-98-5671Uay bone density study axial skeleton Obdulia Ann PA-C Work Phone: Start: 23-63-2194Yrjct depression screening assessment Wojciech Treviño DO Work Phone: Start: 57-78-7033Hvu routine ecg w/least 12 lds trcg only w/o i&rLindsey Lesley Kaur [employer]IGGING [employer]-GUIDE EXCURSION Work Phone: Start: 42-94-2340Qqtmicgkppuvfvcbd studyLintoño Kaur [employer]IGGING MAN-GUIDE EXCURSION Work Phone: Start: 68-35-8220ZTM panel - Blood by Automated count WOJCIECH LOBATONGStart: 04-41-2653Tvtlr metabolic 2000 panel - Serum or Plasma WOJCIECH TREVIÑOStart: 19-70-5029OGUJGQNHMZIBYBZWL PROCEDUREMAURICIO ARRUDAStart: 51-83-2662NMC REFERRAL TO CARDIAC ELECTROPHYSIOLOGYMAHERBERTIO ARRUDAStart: 24-24-8437VJI 12-LEADMAURICIO ARRUDAStart: 79-50-3669Cnu routine ecg w/least 12 lds w/i&Susan Conway MD Work Phone: Start: 18-95-2210Ifh abdomen w/o & w/contrast material Rima Esvin [employer]GING MAN.GUIDE EXCURSION Work Phone: Start: 00-92-1630Ysj routine ecg w/least 12 lds w/i&r Yuriy Conway MD Work Phone: Start: 12-40-8126Pqlpn depression screening assessment Cha Staley RIGGING MAN-RETORT PRE COOKER Work Phone: Start: 08-89-6381Sqwwc 1996 panel - Serum or PlasmaHeather Gruber PACathi Work Phone: Start: 13-24-8877Dwzfl depression screening assessment Wojciech Furlong DO Work Phone: Start: 14-98-9801Duaewozfcqf flx dx w/collj spec when pfrmdPmi Frances MD Work Phone: Start: 16-45-0460JuzlrarpkedNwauup Leone MD Work Phone: Start: 33-54-8952PgjzfqdpxooKdymfk Leone MD Work Phone: Start: 36-95-3496KuiyjwpjjdltdejoKkhcpg G Furlong Work Phone: Start: 78-07-6613Zuynpscwypd imaging w/tomographic spect & ctMonica Booker MD Work Phone: start: 31-72-9464Dgkjvfdufflly metabolic panelSoseas Bejarano MD Work Phone: Start: 90-55-8054Dzo bone density study 1/> sites axial skelEvelin Alicea MD Work Phone: Start: 84-85-98444648 NOVEL CORONAVIRUS (COVID-19)Ccf ProviderStart: 75-81-4510Irplc count complete auto&auto difrntl wbcEvelin Alicea MD Work Phone: Start: 50-56-5370N-reactive proteinEvelin Alicea MD Work Phone: Start: 66-36-3583HAE of headDO Wojciech Furlong Work Phone: Start: 34-27-9469Tydmejtw tomography angiography of abdominal and/or pelvic blood vesselDO Neema Work Phone: Start: 25-06-9335MS angiography of headDO Neema Work Phone: Start: 71-37-0427VP angiography of neck vesselsDO Neema Work Phone: Start: 99-06-3309WR angiography of thoraxDO Neema Work Phone: Start: 05-85-6180FN of head without contrastDO Neema Work Phone: Start: 14-44-5702RJYC Antigen (LFIA)DO Neema Work Phone: Start: 45-16-9523Scwin cultureDO Neema Work Phone: Start: 51-82-1706Gjmes chest X-rayDO Neema Work Phone: Start: 11-35-0941Nbdzm count complete auto&auto difrntl wbcHannah Brezovec PA Work Phone: Start: 04-28-2854U-reactive proteinHannah Brezovec PA Work Phone: Start: 40-78-7018Ywbye depression screening assessment Dione Frances MD Work Phone: Start: 34-69-7420ECOXXGXHP SURGICAL PATHOLOGYDione Frances MD Work Phone: Start: 00-13-4925GIDXUTKA PATHOLOGYDione Frnaces MD Work Phone: Start: 57-77-6672Npiwxtiiowlrzwzotlcdmvdest transoral diagnosticDione Frances MD Work Phone: Start: 10-64-6123Zvioccolosj flx dx w/collj spec when pfrmdPmi Frances MD Work Phone: Start: 97-49-6209SpxiuopkuliPnajtu Leone MD Work Phone: Start: 64-59-3610Yfqum hip unilateral with pelvis 2-3 viewsJoseph Oziel Lovelace MD Work Phone: Start: 00-31-7461Xxjsu hip unilateral with pelvis 2-3 viewsJoseph Oziel Lovelace MD Work Phone: Start: 27-98-0405Yf abdominal real time w/image limitedSandy Underwood MD Work Phone: Start: 97-54-0778DiypnbgwhvrZwnkxu Ibrahim MD Work Phone: Start: 47-62-6010Dmnmt shoulder complete minimum 2 viewsVikas D Hernandez DO Work Phone: Start: 60-05-3295Cikkfqsvawl [Units/volume] in Serum or PlasmaYuriy Conway MD Work Phone: AppendectomyDennis G Furlong Work Phone: Excision of cystDennis G Furlong Work Phone: Operative procedure on footDennis G Furlong Work Phone: TonsillectomyDennis G Furlong Work Phone: Total replacement of hipDennis G Furlong Work Phone: Plan of Treatment DateCare ActivityDetailAuthorStart: 84-17-7471Tkraehfoy for malignant neoplasm of [facility] HospitalStart: 94-54-1841Tebbbsehq for malignant neoplasm of [facility] HospitalStart: 03-30-2029 Lipid panelLipid ScreeningTriHealthtart: 17-93-3898Xhibz 1996 panel - Serum or PlasmaLipid ScreeningTriHealthtart: 30-37-4815Coivm panelLipid ScreeningCleMiami Valley Hospitaltart: 77-08-7154HXMRW SCREENLIPID SCREENTriHealthtart: 64-43-3971Kwlmgwdc ScreeningDiabetes ScreeningCleveland Clinic Start: 96-69-4331Swrzogsoy for malignant neoplasm of colonSelect Medical Specialty Hospital - [facility]-FairhillStart: 08-48-3666Wuupnjgy ScreeningDiabetes ScreeningTriHealthtart: 17-45-9942GJXAP SCREENLIPID SCREENTriHealthtart: 06-13-2027 Diabetes ScreeningDiabetes ScreeningTriHealthtart: 48-12-4281Xjpnmtcd ScreeningDiabetes ScreeningTriHealthtart: 04-44-3173Jyvyueqm Screening Diabetes ScreeningTriHealthtart: 59-46-9419Hrgtfray ScreeningDiabetes ScreeningTriHealthtart: 92-24-5531Bfnvrylf ScreeningDiabetes Screening TriHealthtart: 20-15-9440Jzfcdsdv ScreeningDiabetes ScreeningTriHealthtart: 56-25-1392IGZQXJHU SCREENDIABETES SCREENTriHealthtart: 07-87-7488Zyawffwi ScreeningDiabetes ScreeningTriHealthtart: 04-04-2026 Creatinine measurementSerum CreatinineTriHealthtart: 39-93-0931YABWRNVW SCREENDIABETES SCREENTriHealthtart: 20-93-0603Xftxv BMI ScreeningAdult BMI ScreeningNovant Health Kernersville Medical Centertart: 61-70-1752Tswirge ScreeningTobacco ScreeningNovant Health Kernersville Medical Centertart: 29-93-9016TN Controlled (<130/80)BP Controlled (<130/80)TriHealthtart: 08-67-8946Ovfke BMI ScreeningAdult BMI ScreeningSelect Medical [facility]wood SystemStart: 08-98-2607Mjivrvbuer Screening Depression ScreeningSelect Medical [facility], [facility] SystemStart: 37-78-5364Xkunnwx Screening Tobacco ScreeningProSelect Medical [facility] SystemStart: 33-62-7322Svzny BMI Screening Adult BMI ScreeningSelect Medical [facility] SystemStart: 36-23-9541Xporiosrid Screening Depression ScreeningSelect Medical [facility] SystemStart: 56-56-1234Bajg Risk Screening Fall Risk ScreeningProCorey Hospitaltart: 68-34-0268Geqrzre Screening Tobacco ScreeningProCorey Hospitaltart: 93-67-4980Irjmtjjh blood count Hemoglobin/HematocritTriHealthtart: 82-46-8831Evznoakpiq measurement Serum CreatinineTriHealthtart: 54-03-1504Hffaq BMI ScreeningAdult BMI ScreeningSelect Medical [facility] SystemStart: 18-76-6071Mgazgji ScreeningTobacco ScreeningSelect Medical [facility] SystemStart: 36-27-6055YagrqzczsvckgusxCygfcruixtsdvv [facility]-FairhillStart: 43-95-0900Aycwfqbvha measurementSerum CreatinineTriHealthtart: 08-01-2025 End: 97-81-9250Dbdyutt encounter kezeddwvk80/16/2025 9:20 AM EST Office Visit [facility] [address] [facility] [address] [place] [id number] Yuriy Conway MD [address] [facility] [address] [facility] [address] [place], [place] [id number] [facility]Start: 07-27-2025 End: 37-55-3259nuimhncamu75/11/2025 9:30 AM EST [facility] [address] [place] [address] BENLYSDENIS M32.9 MEDICARE A/B DR LANEY ALICEA STAFFING, X 8 weeksInfusionComment on above:BENLYSTA M32.9 MEDICARE A/B DR LANEY ALICEA STAFFING, X 8 weeksStart: 10-62-1478Wplvv BMI ScreeningAdult BMI ScreeningNovant Health Kernersville Medical Centertart: 86-73-7698Zbnblibcdn ScreeningDepression ScreeningSelect Medical [facility] SystemStart: 87-15-8087Xyek Risk ScreeningFall Risk ScreeningSelect Medical [facility] SystemStart: 20-15-0043Ukggwkp ScreeningTobacco ScreeningSelect Medical [facility] SystemStart: 77-46-0872Cwgzp BMI ScreeningAdult BMI ScreeningSelect Medical [facility]wood SystemStart: 61-76-9226Xvgvmfphdj ScreeningDepression ScreeningSelect Medical [facility] SystemStart: 99-56-8999PMCMRNRK SCREENDIABETES SCREEN TriHealthtart: 59-52-4850Sawq Risk ScreeningFall Risk ScreeningSelect Medical [facility] SystemStart: 92-58-6880Pezgxdw ScreeningTobacco ScreeningProMedica Health SystemStart: 06-29-2025 End: 74-64-0217Tobizvc encounter ucfnjrkmk39/13/2025 9:30 AM EST Office Visit [facility] [address] [place] [address] Wojciech Treviño DO [address], [facility] [place] [address] [facility] Hospitaltart: 85-69-4896ZOYTW SCREENLIPID SCREENTriHealthtart: 06-16-2025 End: 75-48-2667Rkgnvgt encounter /31/2025 9:00 AM EDT Office Visit Gastroenterology [address] [facility] [place] [address] Dione Frances MD [address] [place], [place] [address] Diarrhea f/uGastroenterologyComment on above:Diarrhea f/uStart: 06-14-2025 End: 27-40-7913Ivdzrfo encounter apvbtqink17/29/2025 11:45 AM EDT Office Visit Orthopaedics [address] [place] [address] [place] [address] [place] [address] postopOrthopaedicsComment on above:postopStart: 06-12-2025 DIABETES SCREENDIABETES SCREENTriHealthtart: 05-24-2025 End: 45-60-4009Yradugr encounter gyxayuyqm17/08/2025 9:00 AM EDT Office Visit [facility]umatology [address] [facility] [address] [place], [place] [address] Nadege Murphy, DO [address], [address] [place] [address] 6month follow up per walk upRheumatologyComment on above: 6month follow up per walk upStart: 23-67-4764Pqubrsqn blood count Hemoglobin/HematocritTriHealthtart: 29-47-9000Pmfcz BMI ScreeningAdult BMI ScreeningSelect Medical [facility] SystemStart: 73-33-5881Grcrkbz ScreeningTobacco ScreeningNovant Health Kernersville Medical Centertart: 05-19-2025 End: 35-49-7759bsooyefkln51/03/2025 9:00 AM EDT Infusion Center Infusion [address]00 [place] [address] BENLYSDENIS M32.9 MEDICARE A/B DR LANEY ALICEA STAFFING, X 8 weeksInfusionComment on above:BENLYSDENIS M32.9 MEDICARE A/B DR LANEY ALICEA STAFFING, X 8 weeksStart: 05-17-2025 End: 92-48-2460Rjfpqum encounter kzrroudoi02/01/2025 11:30 AM EDT Office Visit Orthopaedics [address] [place] [address] [place] [address] [place] [address] postopOrthopaedicsComment on above:postopStart: 05-15-2025 End: 84-97-8857Mhloync encounter /29/2025 11:30 AM EDT Office Visit Orthopaedics [address] [address] Fercho Prather PA-C [address] [place], [place] [address] postopOrthopaedicsComment on above:postopStart: 05-03-2025 End: 79-44-9958Lwrrsbe encounter procedureOrthopaedicsComment on above:postop CAST OFFCR/ POSTOP >4 WEEKSStart: 05-01-2025 End: 70-47-1100Juufujcin to same day surgery hjxbwo4905/01/2025 12:20 PM EDT - 05/01/2025 4:05 PM EDT [facility] Operating Room [address] [address] [place] [address] [place] [address] ARTHRODESIS MIDTARSAL MULTIPLE/TRANSVERSEBl[facility] Operating RoomComment on above:ARTHRODESIS MIDTARSAL MULTIPLE/TRANSVERSEStart: 05-01-2025 End: 79-92-9716Pnoqio midtarsl/tarsometatarsal mult/transvrsARTHRODESIS MIDTARSAL MULTIPLE/TRANSVERSE Arthritis, neuropathic Bone disease 05/01/2025 12:20 PM EDTLU ORStart: 05-01-2025 End: 18-63-8483Mohhlttnapa midtarsometatarsal single jointARTHRODESIS FOOT Arthritis, neuropathic Bone disease 05/01/2025 12:20 PM EDTLU ORStart: 05-01-2025 End: 47-41-3393Myemeurrier subtalarARTHRODESIS SUBTALAR Arthritis, neuropathic Bone disease 05/01/2025 12:20 PM EDTLU ORStart: 05-01-2025 End: 44-54-7867Rhsvalhparq up to 1 hour physician/qhp timeFLUOROSCOPY UP TO 1 HOUR PHYSCIAN OR OTHER QUAL PROF TIME,SEPARATE PROCEDURE Arthritis, neuropathic Bone disease 05/01/2025 12:20 PM EDTLU ORStart: 05-01-2025 End: 65-92-3376Hemjj/shrt tendon leg/ankle 1 tendon spxLENGTHENING CORD HEEL Arthritis, neuropathic Bone disease 05/01/2025 12:20 PM EDTLU ORStart: 68-09-6179Iyxrsmukkp hospital visit by gkirfpdoh01/15/2025 12:20 PM EDT Hospital Encounter [facility] Operating Room [address] [address] [place] [address] [place] [address] Arthritis, neuropathic [M14.60], Bone disease [M89.9] [facility] Operating RoomComment on above:Arthritis, neuropathic [M14.60], Bone disease [M89.9]Start: 05-01-2025 End: 12-96-6455Rpmlffj encounter spyhupnmy75/15/2025 8:30 AM EDT Office Visit [facility] [address] [place] [address] Wojciech Treviño DO [address], [place] [address] [facility] Medicine - Family MedicineStart: 04-19-2025 End: 31-17-2619Ilbtlbovgr oubeyeenbjnh56/03/2025 1:00 PM EDT PAT Pre Anesthesia 5700 [place] [address] 2, Pacc [facility] [address] [place] [address] paccPre AnesthesiaComment on above:paccStart: 04-18-2025 End: 03-10-8411Ohlngpf encounter /02/2025 10:30 AM EDT Office Visit Orthopaedics [place] [address] [place] [address] Ferhco Prather PA-C [address] [place] [address] postopOrthopaeProvidence HospitalComment on above:postopStart: 95-26-1719Dgewkzfvs vaccinationMercy Health Urbana Hospitalca [facility] SystemStart: 36-63-8557Letjeexop for malignant neoplasm of breastTriHealthtart: 04-04-2025 End: 28-50-5867Wgboegq encounter mctfhxpes87/19/2025 8:20 AM EDT Office Visit Pulmonary Medicine [address] [place] [address] [place] [address] [place] [address] 3 month f/uPulmonary MedicineComment on above:3 month f/u Start: 04-03-2025 End: 12-88-1580Dfepmkbre to same day surgery nrgpqj5604/03/2025 11:15 AM EDT - 04/03/2025 3:00 PM EDT [facility] Operating Room [address]30 [place] [address] [place] [address] [place] [address] ARTHRODESIS MIDTARSAL MULTIPLE/TRANSVERSEBlanchard Valley Health [facility] Operating RoomComment on above:ARTHRODESIS MIDTARSAL MULTIPLE/TRANSVERSEStart: 04-03-2025 End: 75-65-4493Sobups midtarsl/tarsometatarsal mult/transvrsARTHRODESIS MIDTARSAL MULTIPLE/TRANSVERSE Arthritis, neuropathic Bone disease 04/03/2025 11:15 AM EDTLU ORStart: 04-03-2025 End: 21-91-7507Mlkooufdsiz midtarsometatarsal single jointARTHRODESIS FOOT Arthritis, neuropathic Bone disease 04/03/2025 11:15 AM EDTLU ORStart: 04-03-2025 End: 98-69-4435Ryortvpkfsc subtalarARTHRODESIS SUBTALAR Arthritis, neuropathic Bone disease 04/03/2025 11:15 AM EDTLU ORStart: 04-03-2025 End: 98-57-8240Tuthrfltfwb up to 1 hour physician/[facility] timeFLUOROSCOPY UP TO 1 HOUR PHYSCIAN OR OTHER QUAL PROF TIME,SEPARATE PROCEDURE Arthritis, neuropathic Bone disease 04/03/2025 11:15 AM EDTLU ORStart: 04-03-2025 End: 05-04-8244Rllqj/shrt tendon leg/ankle 1 tendon spxLENGTHENING CORD HEEL Arthritis, neuropathic Bone disease 04/03/2025 11:15 AM EDTLU ORStart: 27-91-7414Drrqvqqarr hospital visit by ychkadhke47/18/2025 11:15 AM EDT Hospital Encounter [facility] Operating Room [address] [address] [place] [address] [place] [address] Arthritis, neuropathic [M14.60], Bone disease [M89.9] [facility] Operating RoomComment on above:Arthritis, neuropathic [M14.60], Bone disease [M89.9]Start: 04-03-2025 End: 40-83-1571Fdqmlmarw to same day surgery [facility] Operating RoomComment on above:ARTHRODESIS MIDTARSAL MULTIPLE/TRANSVERSEStart: 04-03-2025 End: 92-78-7476Iumhac midtarsl/tarsometatarsal mult/transvrsLU ORStart: 04-03-2025 End: 65-96-0462Cpqsntuykan midtarsometatarsal single jointLU ORStart: 04-03-2025 End: 37-47-4020Zlasryaohle subtalarLU ORStart: 04-03-2025 End: 68-58-1450Jbrzkcrshmz up to 1 hour physician/qhp timeLU ORStart: 04-03-2025 End: 46-00-7589Enwuv/shrt tendon leg/ankle 1 tendon spxLU ORStart: 04-03-2025 Subsequent hospital visit by [facility] Operating RoomComment on above:Arthritis, neuropathic [M14.60], Bone disease [M89.9]Start: 03-30-2025 Adult BMI ScreeningAdult BMI ScreeningProSelect Medical [facility] SystemStart: 03-30-2025 Depression ScreeningDepression ScreeningProSelect Medical [facility] SystemStart: 03-30-2025 Tobacco ScreeningTobacco ScreeningProSelect Medical [facility] SystemStart: 03-23-2025 End: 93-56-8508xdsrpzgztv08/07/2025 9:00 AM EDT Infusion Center Infusion [address] [place] [address] BENLYSTA M32.9 MEDICARE A/B DR LANEY ALICEA STAFFING, X 8 weeksInfusionComment on above:BENLYSTA M32.9 MEDICARE A/B DR LANEY ALICEA STAFFING, X 8 weeksStart: 03-20-2025 End: 90-63-4928Pjrvmldbdg lajsrlhexplz06/04/2025 9:00 AM EDT PAT Pre Anesthesia [address] [facility] [place] [place] [address] 2, Pacc [facility] [address] [facility] [place] [address] paccPre AnesthesiaComment on above:paccStart: 18-36-8106LP Controlled (<130/80)BP Controlled (<130/80) TriHealthtart: 08-84-4932WUVBWNRY SCREENDIABETES SCREENBlanchard Valley Health System [facility] Start: 03-10-2025 End: 32-72-4550Hortnzb encounter jrsuthljt18/25/2025 9:30 AM EDT Office Visit Orthopaedics [address] [facility] [place] [address] Mary Childress MD [address] [place] [address] Left knee cortisone injectionOrthopaedicsComment on above: Left knee cortisone injectionStart: 07-03-2025Medicare Annual Wellness Visit Medicare Annual Wellness Visit (AWV)[facility]Start: 02-16-2025 End: 62-93-5117Zloaoyd encounter rmpefeano86/03/2025 9:00 AM EDT Office Visit [facility] - [facility] [address] [place] [address] HcwIqmxwr Physicians Internal Medicine - Family MedicineStart: 24-72-3420Qnvrw BMI ScreeningAdult BMI ScreeningProSelect Medical [facility] SystemStart: 93-92-3352Oorggrhoub ScreeningDepression ScreeningProSelect [facility] SystemStart: 60-47-1984Wuqj Risk ScreeningFall Risk ScreeningProSelect Medical [facility] SystemStart: 07-02-2025Medicare Annual Wellness VisitMedicare Annual Wellness VisitProSelect Medical [facility] SystemStart: 02-10-2025 End: 53-41-8087Mnkqgcu encounter ikgtfmktv02/27/2025 10:15 AM EDT Office Visit [facility]ol[facility]ology [address] [facility] [place] [address] Sudhir Wooten MD [address] [place], [place] [address] : Return for rhinology 10-30 days - nasal bleeding.OtolaryngologyComment on above:: Return for rhinology 10-30 days - nasal bleeding.Start: 02-03-2025 End: 38-34-7897gzxbmhqixt01/20/2025 8:15 AM EDT Results Only Edi [facility] [address] [place] [address] Kvylme [facility] LaboratoryStart: 02-02-2025 End: 034140-myvexerfvxbodd D3 [Mass/volume] in Serum or PlasmaVITAMIN D 25 HYDROXY Lab Routine Charcot arthropathy Disorder of bone, unspecified Expected: 02/02/2025, Expires: 05/04/2025[facility] Work Phone: Comment on above:Expected: 02/02/2025, Expires: 05/04/2025Start: 02-01-2025 End: 20-05-6620Pgqpnuk encounter procedureThe [facility] Radiology CT ScanComment on above:Closed fracture of left foot, initial encounter [S92.902ACT results Start: 01-30-2025 End: 08-40-9883akhhnoiwkp74/16/2025 5:00 PM EDT Evaluation [facility] [address] [place] [address] Kimmy Cerda, REDNOMS CI PTStart: 01-26-2025 End: 74-51-9849iyaehoocvk35/12/2025 9:00 AM EDT Infusion Center Infusion [address] [facility] [place] [address] BENLYSDENIS M32.9 MEDICARE A/B DR LANEY ALICEA STAFFING, X 8 weeksInfusionComment on above:BENLYSDENIS M32.9 MEDICARE A/B DR LANEY ALICEA STAFFING, X 8 weeksStart: 01-25-2025 End: 79-00-5661Ztbuvgn encounter procedureOtolaryngologyComment on above:Return for 01/25/2025 at 8:50 nose follow up.Closed fracture of left foot, initial encounter [S92.902A]Start: 01-23-2025 End: 02-04-5911Qnaxvil encounter ahdfnjmli66/09/2025 10:00 AM EDT Office Visit Orthopaedics [address] [facility] [place] [address] [place] [address] [place] [address] RIGHT NAVICULAR FRACTUREOrthopaedicsComment on above:RIGHT NAVICULAR FRACTUREStart: 01-19-2025 End: 46-04-4295Uinjfyw encounter procedurePodiatryComment on above:RT FOOT F/U right foot painStart: 01-18-2025 End: 87-48-5746Oyxosme encounter ocanuqbuw63/04/2025 8:50 AM EDT Office Visit Otolaryngology [address] [place], [place] [address] Curtis Ogden APRN.GUIDE EXCURSION [address] [place], [place] [address] nosebleedsOtolaryngologyComment on above:nosebleedsStart: 87-93-4877Fmtodhnknl measurementCreatinine LevelUnMercy Health St. Vincent Medical CenterStart: 16-36-3780Sqyuwgzhd measurementPotassium LevelUnMercy Health St. Vincent Medical CenterSttell city: 12-29-2024 End: 26-45-6524Zrqvsrq encounter ydaipvbdb49/15/2025 9:15 AM EDT Office Visit [facility] - [facility] [address] [place] [address] Wojciech Treviño, [address], [place] [address] [facility] Medicine - Family MedicineStart: 12-22-2024 End: 80-44-6346Rztzbdk encounter lszzrqiku83/08/2025 8:30 AM EDT Office Visit Pulmonary Medicine [address] [place] [address] [place] [address] [place] [address] SOBPulmonary MedicineComment on above:SOBStart: 12-21-2024 End: 37-96-2976Odxwlvr encounter procedureRadiologyComment on above:foot pain Right foot pain/swellingStart: 37-56-0210AUZKAYTC SCREENDIABETES SCREENTriHealthtart: 12-07-2024 End: 45-92-2223Avvanthrn aminotransferase [Enzymatic activity/volume] in Serum or Plasma by With P-5'-PAspartate Aminotransferase Lab Routine Paroxysmal atrial fibrillation (Multi) High risk medication use Expected: 12/07/2024 (Approximate), Expires: 12/07/2025[facility] Service Area Work Phone: Comment on above:Expected: 12/07/2024 (Approximate), Expires: 12/07/2025Start: 12-07-2024 End: 55-09-9607Geonk metabolic 2000 panel - Serum or PlasmaBasic Metabolic Panel Lab Routine Paroxysmal atrial fibrillation (Multi) High risk medication use Ex pected: 12/07/2024 (Approximate), Expires: 12/07/2025[facility] Work Phone: Comment on above:Expected: 12/07/2024 (Approximate), Expires: 12/07/2025Start: 12-07-2024 End: 04-68-4636Tiehotgc Pulmonary Function Test (Spirometry/DLCO/Lung Volumes) Complete Pulmonary Function Test (Spirometry/DLCO/Lung Volumes) PFT Routine Paroxysmal atrial fibrillation (Multi) High risk medication use Expected: 12/07/2024 (Approximate), Expires: 12/07/2025[facility] Work Phone: Comment on above:Expected: 12/07/2024 (Approximate), Expires: 12/07/2025Start: 12-07-2024 End: 79-91-9693Wbgatuuwyrd [Units/volume] in Serum or PlasmaThyroid Stimulating Hormone Lab Routine Paroxysmal atrial fibrillation (Multi) High risk medication use Expected: 12/07/2024 (Approximate), Expires: 12/07/2025[facility] Work Phone: Comment on above:Expected: 12/07/2024 (Approximate), Expires: 12/07/2025Start: 12-07-2024 End: 47-01-1264AW Chest 2 ViewsXR chest 2 views Imaging Routine Paroxysmal atrial fibrillation (Multi) High risk medication use Expected: 12/07/2024 (Approximate), Expires: 12/07/2025[facility] Work Phone: Comment on above:Expected: 12/07/2024 (Approximate), Expires: 12/07/2025Start: 12-07-2024 End: 87-96-3076Skrmcik encounter qbcsjuqbr03/23/2025 10:40 AM EDT Office Visit [facility] [address] [facility] [address] [place] [address] Yuriy Conway MD [address] [facility], [address] [place] [address] [facility]Start: 12-01-2024 End: 23-30-9423noaryucpvp42/17/2025 9:00 AM EDT Infusion Center Infusion [address] [place] [address] BENLYSTA M32.9 MEDICARE A/B DR LANEY ALICEA STAFFING, X 8 weeksInfusionComment on above:BENLYSTA M32.9 MEDICARE A/B DR LANEY ALICEA STAFFING, X 8 weeksStart: 11-16-2024 End: 15-48-3672GXJ ANTIBODY DS [facility] Work Phone: Comment on above:Expected: 11/16/2024, Expires: 02/15/2025Start: 11-16-2024 End: 69-86-4224Rmrpwnk encounter onxlkaylo35/02/2025 9:00 AM EDT Office Visit Rheumatology [address] [phone] Nadege Murphy DO [address], [address] [place] [address] SLE 6 Month Follow UpRheumatologyComment on above:SLE 6 Month Follow UpStart: 11-15-2024 End: 81-13-9297OAZ W Auto Differential panel - BloodCOMPLETE BLOOD COUNT AND DIFFERENTIAL Lab Routine Lupus nephritis, ISN/RPS class V (HCC) Expected: 0 11/15/2024, Expires: 02/14/2025leveland ClinicComment on above:Expected: 11/15/2024, Expires: 02/14/2025Start: 11-15-2024 End: 23-58-0543Qaurdhurptfna metabolic 2000 panel - Serum or PlasmaCOMPREHENSIVE METABOLIC PANEL Lab Routine Lupus nephritis, ISN/RPS class V (HCC) Expected: 11/15/2024, Expires: 02/14/20[facility] Work Phone: Comment on above:Expected: 11/15/2024, Expires: 02/14/2025Start: 11-15-2024 End: 88-57-6159Preocbt/Creatinine [Mass Ratio] in UrinePROTEIN / CREATININE RATIO Lab Routine Lupus nephritis, ISN/RPS class V (HCC) Expected: 11/15/2024, Expires: 02/14/2025leveland ClinicComment on above:Expected: 11/15/2024, Expires: 02/14/2025Start: 11-15-2024 End: 20-89-0239Xrljwuistt complete panel - UrineURINALYSIS (WITH MICROSCOPIC) WITH CULTURE IF INDICATED Lab Routine Lupus nephritis, ISN/RPS class V (HCC) Expected: 11/15/2024, Expires: 02/14/2025leveland ClinicComment on above: Expected: 11/15/2024, Expires: 02/14/2025Start: 11-15-2024 End: 00-26-5467Earjewt encounter /01/2025 9:20 AM EDT Office Visit Kidney Medicine [address] [place] [address] Radu Salazar MD [address] [place], [place] [address] Follow upKidney MedicineComment on above:Follow upStart: 69-36-2521QZ Controlled (<130/80)BP Controlled (<130/80)TriHealthtart: 10-06-2024 End: 37-05-4750pawuswqivw17/20/2025 9:00 AM EST Infusion Center Infusion [address] [facility] [place] [address] BENLYSTA M32.9 MEDICARE A/B DR LANEY ALICEA STAFFING, X 8 weeksInfusionComment on above:BENLYSTA M32.9 MEDICARE A/B DR LANEY ALICEA STAFFING, X 8 weeksStart: 09-30-2024 End: 71-61-1881Zcwixva encounter lxsfbhgoa36/14/2025 9:45 AM EST Office Visit Gastroenterology [address] [place], [place] [address] Dione Frances MD [address] [place] [address] [address] [place], [place] [address] per 12/22/23 ov, 4 month fu ov & [facility] R/S From 05/03GastroenterologyComment on above:per 12/22/23 ov, 4 month fu ov & [facility] R/S From 05/03Start: 09-20-2024 End: 71-73-9239sutmyrrmhk78/04/2025 1:00 PM EST [facility] [address] [address] Obdulia Ann PA-C [address] [address] Osteopenia f/uBone CenterComment on above:Osteopenia f/uStart: 09-19-2024 [facility]: 09-12-2024 End: 21-48-2664Zudiigr encounter /27/2025 9:45 AM EST Appointment [facility] [address] [place] [address] XV Celeste [facility] HospitalStart: 09-05-2024 End: 91-20-1819YS Heart TransthoracicTransthoracic Echo Complete Echocardiography Routine Chronic diastolic heart failure (Multi) Shortness of breath Expected: 09/05/2024 (Approximate), Expires: 08/05/2026[facility] Work Phone: Comment on above:Expected: 09/05/2024 (Approximate), Expires: 08/05/2026Start: 15-39-4022Cidjg BMI ScreeningAdult BMI Screening [facility] SystemStart: 39-29-5159Rnsuyqbhbv ScreeningDepression Screening [facility] SystemStart: 40-33-3820Thhesux ScreeningTobacco Screening [facility] SystemStart: 08-23-2024 End: 10-34-8484Dbidezc encounter twflhntyk46/07/2025 9:15 AM EST Office Visit Orthopaedics [address] [place] [address] Mary Childress MD [address] [facility] [address] [facility] [place] [address] Follow up Left kneeOrthopaedicsComment on above:Follow up Left kneeStart: 71-67-2225Qoiqdan Directive DiscussionAdvance Directive DiscussionTriHealthtart: 08-11-2024 End: 39-15-0940umblzmlyyk61/26/2024 9:30 AM EST Infusion Center Infusion 57[address] [facility] An[address]aria [address] [facility] [place] [address] BENLYSDENIS M32.9 MEDICARE A/B DR LANEY ALICEA STAFFING, X 8 weeksInfusionComment on above:BENLYSDENIS M32.9 MEDICARE A/B DR LANEY ALICEA STAFFING, X 8 weeksStart: 08-09-2024 End: 67-55-6482Rzxlhfu encounter gbguqvilw64/24/2024 10:00 AM EST Appointment [address] [place], [address] YV [facility] Vegastart: 08-08-2024 End: 70-60-5678Udmjfmb encounter joiugqond05/23/2024 10:45 AM EST Appointment [address] [place], [id number] CH [facility] Vegastart: 08-05-2024 End: 22-77-1428Wxoqdvw encounter qvvjbwnia65/20/2024 3:00 PM EST Office Visit [facility] [address] [facility] [address] [place] [address] Yuriy Conway MD [address] [facility] [address], [address] [place] [address] [facility]Start: 08-05-2024 End: 92-80-9940Rbciuzhj Pulmonary Function Test (Spirometry/DLCO/Lung Volumes) Complete Pulmonary Function Test (Spirometry/DLCO/Lung Volumes) PFT Routine Paroxysmal atrial fibrillation (Multi) High risk medication use Expected: 08/05/2024 (Approximate), Expires: 08/05/2025[facility] Work Phone: Comment on above:Expected: 08/05/2024 (Approximate), Expires: 08/05/2025Start: 08-05-2024 End: 55-15-8713PK Chest 2 ViewsXR chest 2 views Imaging Routine Paroxysmal atrial fibrillation (Multi) High risk medication use Expected: 08/05/2024, Expires: 08/05/2025[facility] Service Area Work Phone: Comment on above:Expected: 08/05/2024, Expires: 08/05/2025Start: 87-19-3136Mejpygl ScreeningTobacco ScreeningMercy Health Urbana Hospitalca [facility] SystemStart: 07-21-2024 End: 26-20-6745Kwfzdnc encounter gvcepucns55/05/2024 9:00 AM EST Office Visit [facility] [address] [place] [address] Wojciech Treviño, [address], [place] [address] [facility] - Family MedicineStart: 07-19-2024 End: 58-93-1720Agokv function 2000 panel - Serum or PlasmaRENAL FUNCTION PANEL Lab Routine Paroxysmal atrial fibrillation (HCC) Epistaxis Preoperative examina tion, unspecified Expected: 07/19/2024, Expires: [address] [place] [address] Work Phone: Comment on above:Expected: 07/19/2024, Expires: 10/18/2024Start: 07-11-2024 End: 62-56-2757Hxbtesr encounter pzxdlxybc91/25/2024 2:00 PM EST Office Visit Rheumatology [address] [address] Nadege Murphy, DO [address], [address] [place], [place] [phone] per patient requestRheumatologyComment on above:per patient requestStart: 07-08-2024 End: 83-44-6487Qlskytr encounter qseimfiyq83/22/2024 9:45 AM EST Office Visit Gastroenterology [address] [place] [address] Dione Frances MD [address] [facility] [place] [address] per 12/22/23 ov, 4 month fu ov & [facility] R/S From 05/03GastroenterologyComment on above:per 12/22/23 ov, 4 month fu ov & [facility] R/S From 05/03Start: 06-30-2024 End: 56-98-8844Ozrvfov encounter niadsnack06/14/2024 9:00 AM EST Office Visit [facility] [address] [place] [address] Wojciech Treviño DO [address], [facility] [place] [address] [facility] Internal Medicine - Family MedicineStart: 06-14-2024 End: [id number]/29/2024 9:30 AM EDT Infusion [facility] Infusion [address] [facility] [place] [address] CHERYL M32.9 MEDICARE A/B DR LANEY ALICEA STAFFING, x 8 weeksInfusionComment on above:CHERYL M32.9 MEDICARE A/B DR LANEY ALICEA STAFFING, x 8 weeksStart: 06-10-2024 End: 70-20-5462Xdkclzj encounter fijgvyrlh11/25/2024 2:20 PM EDT Office Visit [facility] [address] [facility] [address] [place] [address] Yuriy Conway MD [address] [place] [address] [facility]: 06-10[facility]2024 End: 09-09-3080Vhbcxtu encounter kcetjieqq33/25/2024 9:45 AM EDT Office Visit Gastroenterology [address] [place] [address] Dione Frances MD [address] [facility] [address] per 12/22/23 ov, 4 month fu ov & CCF R/S From 05/03GastroenterologyComment on above:per 12/22/23 ov, 4 month fu ov & CCF R/S From 05/03Start: 05-27-2024 End: 52-80-7634Udnoocoqtzkay metabolic 2000 panel - Serum or PlasmaCOMPREHENSIVE METABOLIC PANEL Lab Routine Systemic lupus erythematosus, unspecified SLE type, unspecified organ involvement status (HCC) Expected: 05/27/2024, Expires: 08/26/2024[facility] Work Phone: Comment on above:Expected: 05/27/2024, Expires: 08/26/2024Start: 05-20-2024 End: 16-31-6249vklwasgefq36/04/2024 9:30 AM EDT Treatment [facility]OM[facility] CI PT [address] [place] [id number] Patrick Argueta PTANOMS CI PTStart: 05-20-2024 End: 55-32-9038Etsdywj encounter procedureOrthopaedicsComment on above:Left knee left knee sunrise viewStart: 05-19-2024 End: 94-57-9463Sxrktzd encounter jpeqwklys94/03/2024 3:45 PM EDT Office Visit [facility] [address] [place] [address] Wojciech Treviño, [address], [place] [address] [facility] MedicineStart: 05-18-2024 End: 59-42-2388zhturvscql45/02/2024 2:30 PM EDT Treatment [facility]OMS CI PT [address] [place] [address] Patrick Argueta PTANOMS CI PTStart: 05-18-2024 End: 50-03-6553Jbmzhtn encounter gjsjqfioy12/02/2024 2:30 PM EDT Office Visit Rheumatology [address] [address] Nadege Murphy, DO [address], [address] [place], [place] [id number] per patient requestRheumatologyComment on above:per patient requestStart: 05-18-2024 End: 97-67-9843OZR W Auto Differential panel - BloodCOMPLETE BLOOD COUNT AND DIFFERENTIAL Lab Routine Systemic lupus erythematosus, unspecified SLE type, unspecified organ involvement status (HCC) Expected: 05/18/2024, Expires: 08/17/2024leveland ClinicComment on above:Expected: 05/18/2024, Expires: 08/17/2024Start: 05-18-2024 End: 94-03-2645Vzyxekhsgecbt metabolic 2000 panel - Serum or PlasmaCOMPREHENSIVE METABOLIC PANEL Lab Routine Systemic lupus erythematosus, unspecified SLE type, unspecified organ involvement status (HCC) Expected: 05/18/2024, Expires: 08/17/2024[facility] ClinicComment on above:Expected: 05/18/2024, Expires: 08/17/2024Start: 05-18-2024 End: 31-96-9185Fbywlnyw kinase [Enzymatic activity/volume] in Serum or Plasma CREATINE KINASE/CK Lab Routine Systemic lupus erythematosus, unspecified SLE type, unspecified organ involvement status (HCC) Expected: 05/18/2024, Expires: 08/17/2024[facility] Work Phone: Comment on above:Expected: 05/18/2024, Expires: 08/17/2024Start: 05-18-2024 End: 17-72-2144Zxufdxv/Creatinine [Mass Ratio] in UrinePROTEIN / CREATININE RATIO Lab Routine Systemic lupus erythematosus, unspecified SLE type, unspecifi ed organ involvement status (HCC) Expected: 05/18/2024, Expires: 08/17/2024 [facility] Valley HospitalComment on above:Expected: 05/18/2024, Expires: 08/17/2024Start: 05-18-2024 End: 02-62-5426Ljgirrwcbp complete panel - UrineURINALYSIS, WITH MICROSCOPIC Lab Routine Systemic lupus erythematosus, unspecified SLE type, unspecified organ involvement status (HCC) Expected: 05/18/2024, Expires: 08/17/2024[facility] ClinicComment on above:Expected: 05/18/2024, Expires: 08/17/2024Start: 64-09-1197ZYQBUTAJ SCREENDIABETES SCREENTriHealthtart: 05-12-2024 End: 87-32-8019qrygkbohyxFOGH CI PTComment on above:ArrivedStart: 05-03-2024 End: 90-33-0018Lwlvpul encounter kxikxxgfc87/17/2024 9:40 AM EDT Office Visit Gastroenterology [address] [place] [address] Dione Frances MD [address] [place] [address] per 12/22/23 ov, 4 month fu ovGastroenterologyComment on above:per 12/22/23 ov, 4 month fu ovStart: 05-02-2024 End: 46-65-1231Ipehkkl encounter jmciidfsw32/16/2024 2:20 PM EDT Office Visit [facility] [address] [place] [address] Yuriy Conway MD [address] [place] [address] [facility]: 04-19-2024 End: 85-93-5802adpzkngigc87/03/2024 10:00 AM EDT Infusion Center Infusion [address] [facility] [place] [address] BENLYSTA M32.9 MEDICARE A/B DR LANEY ALICEA STAFFING, x 8 weeksInfusionComment on above:BENLYSTA M32.9 MEDICARE A/B DR LANEY ALICEA STAFFING, x 8 weeksStart: 41-12-9761Wjzty-19 Vaccine ( season)Covid-19 Vaccine ()[facility]: 04-17-2024 Covid-19 Vaccine ( season)Covid-19 Vaccine () [facility]: 22-17-3295Gmbluzrmm vaccinationTriHealthtart: 75-86-1491Dzqmh BMI ScreeningAdult BMI ScreeningProCorey Hospitaltart: 34-68-0038Xbuajowixe ScreeningDepression ScreeningProCorey Hospitaltart: 62-22-0786Vcua Risk ScreeningFall Risk ScreeningProCorey Hospitaltart: 79-22-5083RrczsdaagsfBNDPKDCUVLRIspndrdfc ClinicStart: 52-92-4854SIQWRLVDUF CANCER SCREENINGCOLORECTAL CANCER SCREENINGTriHealthtart: 04-02-2024 Screening for malignant neoplasm of colonTriHealthtart: 04-01-2024 MammographyTriHealthtart: 74-50-6347Rkfqghbno for malignant neoplasm of breastSelect Medical Specialty Hospital - Cleveland-FairhillStart: 03-30-2024 End: 01-84-9271QIL Breast - bilateral screeningMammography screening bilateral with CAD Imaging Routine Encounter for screening mammogram for malignant neoplasm of breast Expected: 03/30/2024, Expires: 03/30/2025ProSelect Medical [facility] Dublin SystemComment on above:Expected: 03/30/2024, Expires: 03/30/2025Start: 03-30-2024 End: 44-41-4171IV.doppler Upper extremity vein - leftVas venous duplex upr single left Vascular Ultrasound Routine Varicose veins of left upper extremity Localized swelling, mass and lump, head Expected: 03/30/2024, Expires: 03/30/2025[facility] Work Phone: Comment on above:Expected: 03/30/2024, Expires: 03/30/2025Start: 03-30-2024 End: 23-94-1724Xgeueko encounter nsjcgzgux64/14/2024 10:00 AM EDT Office Visit [facility] [address] [place] [address] Wojciech Treviño, DO [address] [facility] [address] [facility] MedicineStart: 03-28-2024 End: 10-00-8289Sdwfwyn encounter procedureRadiologyComment on above: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]no full UBStart: 03-18-2024 End: 99-86-5752ujivqxwucs72/02/2024 9:30 AM EDT Results Only [facility] [address] [place] [address] [facility]Select [facility] LaboratoryStart: 03-17-2024 End: 06-16-2024 reactive protein [Mass/volume] in Serum or PlasmaC-REACTIVE PROTEIN Lab Routine Systemic lupus erythematosus, unspecified SLE type, unspecified organ involvement status (HCC) Expected: 03/17/2024, Expires: 06/16/2024[facility] Work Phone: Comment on above:Expected: 03/17/2024, Expires: 06/16/2024Start: 03-17-2024 End: 20-48-7237Artkdkenqh C3 [Mass/volume] in Serum or PlasmaC3 COMPLEMENT Lab Routine Systemic lupus erythematosus, unspecified SLE type, unspecified organ involvement status (HCC) Expected: 03/17/2024, Expires: 06/16/2024leveland ClinicComment on above:Expected: 03/17/2024, Expires: 06/16/2024Start: 03-17-2024 End: 10-42-8242Johqbtaivs C4 [Mass/volume] in Serum or PlasmaC4 COMPLEMENT Lab Routine Systemic lupus erythematosus, unspecified SLE type, unspecified organ involvement status (HCC) Expected: 03/17/2024, Expires: 06/16/2024leveland ClinicComment on above:Expected: 03/17/2024, Expires: 06/16/2024Start: 03-17-2024 End: 83-75-7456Ecovokdj kinase [Enzymatic activity/volume] in Serum or Plasma CREATINE KINASE/CK Lab Routine Systemic lupus erythematosus, unspecified SLE type, unspecified organ involvement status (HCC) Expected: 03/17/2024, Expires: 06/16/2024leveland ClinicComment on above:Expected: 03/17/2024, Expires: 06/16/2024Start: 03-17-2024 End: 46-15-4108ZBD ANTIBODY DS BLDDNA ANTIBODY DS BLD Lab Routine Systemic lupus erythematosus, unspecified SLE type, unspecified organ involvement status (HCC) Expected: 03/17/2024, Expires: 06/16/2024[facility] ClinicComment on above: Expected: 03/17/2024, Expires: 06/16/2024Start: 03-17-2024 End: 18-21-1984Mmwfnlqksvu sedimentation rateSEDIMENTATION RATE, WESTERGREN Lab Routine Systemic lupus erythematosus, unspecified SLE type, unspecified organ involvement status (HCC) Expected: 03/17/2024, Expires: 06/16/2024leveland ClinicComment on above:Expected: 03/17/2024, Expires: 06/16/2024Start: 03-17-2024 End: 42-65-4498yaebldwetq07/01/2024 9:30 AM EDT Infusion Center Infusion [address] [facility] [place] [address] BENLYSTA M32.9 MEDICARE A/B DR LANEY ALICEA STAFFING, K2ZQoyyykmuUmlyzew on above:BENLYSTA M32.9 MEDICARE A/B DR LANEY ALICEA STAFFING, F1EQcnox: 03-15-2024 End: 75-55-7890nxzyuvxuwv04/30/2024 1:40 PM EDT Procedure Bone Center [address] [address] dxaBone CenterComment on above:dxa Start: 03-15-2024 End: 76-65-6641Yneidda encounter procedureBone CenterComment on above: osteoporosis 5m fu per mirandadxaStart: 02-29-2024 End: 09-39-4161Jzvotan encounter ohobhzgek85/15/2024 1:00 PM EDT Office Visit [facility] [address] [facility] [address] [place] [address] Yuriy Conway MD [address] [facility] [address] [place] [address] [facility]: 02-23-2024 End: 96-78-6929nhnoyfhsnp26/09/2024 9:30 AM EDT Infusion Center Infusion [address] [facility] [place] [address] BENLYSTA M32.9 MEDICARE A/B DR LANEY ALICEA STAFFING, Y0JOrjfiqcoVvzdiwy on above:BENLYSTA M32.9 MEDICARE A/B DR LANEY ALICEA STAFFING, U6UXbcpx: 02-16-2024 End: 54-29-7579Hgrehkr encounter qjiskbktq64/02/2024 9:00 AM EDT Office Visit [facility] [address] [place] [address] MhsSppazd Physicians Internal Medicine - Family MedicineStart: 02-12-2024 End: 79-50-2474Ewqzjjd encounter /28/2024 8:30 AM EDT Appointment Radiology [address] [place] [address] US KIDNEY RadiologyComment on above:US KIDNEYStart: 57-88-6990DL CONTROLLED (<130/80)BP CONTROLLED (<130/80)[facility]: 06-13-2024Medicare Annual Wellness VisitMedicare Annual Wellness VisitSelect Medical [facility] SystemStart: 12-29-2023 End: 77-45-1257Sytoyif encounter joheeoeeb37/14/2024 9:40 AM EDT Office Visit Kidney Medicine [address] [facility] [place] [address] Radu Salazar MD [address] [place] [address] Kidney Function - LupusKidney MedicineComment on above:Kidney Function - LupusStart: 12-25-2023 End: 21-36-6718YPG W Auto Differential panel - BloodCOMPLETE BLOOD COUNT AND DIFFERENTIAL Lab Routine Systemic lupus erythematosus, unspecified SLE type, unspecified organ involvement status (HCC) Expected: 12/25/2023, Expires: 03/25/2024[facility] ClinicComment on above:Expected: 12/25/2023, Expires: 03/25/2024Start: 12-25-2023 End: 51-78-6124Emyzzyhiub C3 [Mass/volume] in Serum or PlasmaC3 COMPLEMENT Lab Routine Systemic lupus erythematosus, unspecified SLE type, unspecified organ involvement status (HCC) Expected: 12/25/2023, Expires: 03/25/2024[facility] Work Phone: Comment on above:Expected: 12/25/2023, Expires: 03/25/2024Start: 12-25-2023 End: 47-30-0391Jrtzdicywm C4 [Mass/volume] in Serum or PlasmaC4 COMPLEMENT Lab Routine Systemic lupus erythematosus, unspecified SLE type, unspecified organ involvement status (HCC) Expected: 12/25/2023, Expires: 03/25/2024[facility] ClinicComment on above:Expected: 12/25/2023, Expires: 03/25/2024Start: 12-25-2023 End: 53-91-6416Nsrqoxpazontq metabolic 2000 panel - Serum or PlasmaCOMPREHENSIVE METABOLIC PANEL Lab Routine Systemic lupus erythematosus, unspecified SLE type, unspecified organ involvement status (HCC) Expected: 12/25/2023, Expires: 03/25/2024[facility] ClinicComment on above:Expected: 12/25/2023, Expires: 03/25/2024Start: 12-25-2023 End: 64-19-6595MUY ANTIBODY DS BLDDNA ANTIBODY DS BLD Lab Routine Systemic lupus erythematosus, unspecified SLE type, unspecified organ involvement status (HCC) Expected: 12/25/2023, Expires: 03/25/2024[facility] ClinicComment on above: Expected: 12/25/2023, Expires: 03/25/2024Start: 12-25-2023 End: 41-39-0243Cqdjbhg/Creatinine [Mass Ratio] in UrinePROTEIN / CREATININE RATIO Lab Routine Systemic lupus erythematosus, unspecified SLE type, unspecifi ed organ involvement status (HCC) Expected: 12/25/2023, Expires: 03/25/2024 [facility] Valley HospitalComment on above:Expected: 12/25/2023, Expires: 03/25/2024Start: 12-25-2023 End: 83-19-4161Odpycioxuy complete panel - UrineURINALYSIS, WITH MICROSCOPIC Lab Routine Systemic lupus erythematosus, unspecified SLE type, unspecified organ involvement status (HCC) Expected: 12/25/2023, Expires: 03/25/2024[facility] ClinicComment on above:Expected: 12/25/2023, Expires: 03/25/2024Start: 12-25-2023 End: 38-29-7935Elnfco-up ydhqgzgys90/10/2024 10:00 AM EDT [facility] Rheumatology [address] [address] Nadege Murphy, [address] [place] [address] FOLLOW UP - LUPUSRheumatologyComment on above:FOLLOW UP - LUPUS Start: 12-24-2023 End: 62-14-9317knaiulczuz19/09/2024 9:30 AM EDT Infusion Center Infusion [address] [facility] [place] [address] BENLYSDENIS M32.9 MEDICARE A/B DR LANEY ALICEA STAFFING, L6OZcowqsoaGdoshxj on above:BENLYSDENIS M32.9 MEDICARE A/B DR LANEY ALICEA STAFFING, R3SFcamp: 12-23-2023 End: 18-04-0972Ovdlbab encounter avbawltcx29/08/2024 11:30 AM EDT Office Visit Rheumatology [address] [address] Nadege Murphy DO [address], [address] [place], [place] [phone] 6m SLE fu per radamesRheumatologyComment on above:6m SLE fu per radamesStart: 12-22-2023 End: 68-22-6499Vdcqizt encounter odzzfykjb42/07/2024 11:00 AM EDT Office Visit Gastroenterology [address] [place] [address] Dione Frances MD [address] [facility] [place] [address] 6 month Follow UpGastroenterologyComment on above:6 month Follow UpStart: 82-08-9426DgalrmfnvProMedica Memorial Hospitaltart: 11-16-2023 End: 81-74-4775Dkowgoe encounter ikehprzlq66/01/2024 3:30 PM EDT Office Visit [facility] [address] [place] [address] [place] [address] [place] [address] [facility] Cent[facility]art: 11-05-2023 End: 27-15-6458SHL 12 LeadECG 12 Lead ECG Routine Paroxysmal atrial fibrillation (CMS/HCC) Expected: 11/05/2023 (Approximate), Expires: 10/28/2024[facility] Work Phone: Comment on above:Expected: 11/05/2023 (Approximate), Expires: 10/28/2024Start: 09-17-2023 End: 29-39-2182Yttufcapjijga ExternalCardioversion External Cardiac Services Routine Paroxysmal atrial fibrillation (CMS/HCC) Expected: 09/17/2023 (Approximate), Expires: 09/17/2025[facility] Service [facility] Work Phone: Comment on above:Expected: 09/17/2023 (Approximate), Expires: 09/17/2025Start: 13-01-1184XxtfvlsmngcwudvpOnszrjxodniosoJaccrxyowh Hospitals [facility] ClevelandStart: 89-32-8792Ctgnyci Directive DiscussionAdvance Directive DiscussionCleMiami Valley Hospitaltart: 59-34-7290Dtndzwuayl Health Screening Behavioral Health ScreeningTriHealthtart: 37-96-0972Garrrdmkks AssessmentDepression AssessmentTriHealthtart: 99-17-4928DOS, Provider: Yuriy Conway, Status: Pen, Time: 10:20 AMFUV, Provider: Yuriy Conway, Status: Pen, Time: 10:20 AMMPHighline [facility] [address] DO Work Phone: Start: 48-31-5529SW CONTROLLED (<130/80)BP CONTROLLED (<130/80)[facility]: 58-80-1499QK CONTROLLED (<130/80)BP CONTROLLED (<130/80)[facility]: 05-57-9554ZU CONTROLLED (<130/80)BP CONTROLLED (<130/80)[facility]: 60-80-7391Apglm-19 Vaccine ( season) Covid-19 Vaccine ( season)[facility]: 89-65-8303Vohwjamqv vaccinationTriHealthtart: 04-17-2023 End: 97-55-4542Xtbgw 1996 panel - Serum or PlasmaLIPID PANEL BASIC Lab Routine Mixed hyperlipidemia Hypomagnesemia Expected: 04/17/2023, Expires: 06/17/2023 [facility] Work Phone: Comment on above:Expected: 04/17/2023, Expires: 06/17/2023Start: 04-17-2023 End: 66-88-4162Cfkepfijt [Mass/volume] in Serum or PlasmaMAGNESIUM BLD Lab Routine Mixed hyperlipidemia Hypomagnesemia Expected: 04/17/2023, Expires: 06/17/2023[facility] Work Phone: Comment on above:Expected: 04/17/2023, Expires: 06/17/2023Start: 04-10-2023 End: 06-92-4893DSL W Auto Differential panel - BloodCBC + DIFF Lab Routine Systemic lupus erythematosus, unspecified SLE type, unspecified organ involve ment status (HCC) Expected: 04/10/2023, Expires: 06/10/2023[facility] Work Phone: Comment on above:Expected: 04/10/2023, Expires: 06/10/2023Start: 04-10-2023 End: 29-71-7072Stilvyftwp C3 [Mass/volume] in Serum or PlasmaC3 COMPLEMENT BLD Lab Routine Systemic lupus erythematosus, unspecified SLE type, unspecified organinvolvement status (HCC) Expected: 04/10/2023, Expires: 06/10/2023[facility] Work Phone: Comment on above:Expected: 04/10/2023, Expires: 06/10/2023Start: 04-10-2023 End: 47-45-8041Cesbzvgvea C4 [Mass/volume] in Serum or PlasmaC4 COMPLEMENT BLD Lab Routine Systemic lupus erythematosus, unspecified SLE type, unspecified organinvolvement status (HCC) Expected: 04/10/2023, Expires: 06/10/2023[facility] Work Phone: Comment on above:Expected: 04/10/2023, Expires: 06/10/2023Start: 04-10-2023 End: 03-91-9191Tgeayypnlkttq metabolic 2000 panel - Serum or PlasmaCOMP METABOLIC PANEL Lab Routine Systemic lupus erythematosus, unspecified SLE type, unspecified organ involvement status (HCC) Expected: 04/10/2023, Expires: 06/10/2023[facility] Work Phone: Comment on above:Expected: 04/10/2023, Expires: 06/10/2023Start: 04-10-2023 End: 94-03-3675TMA ANTIBODY DS BLDDNA ANTIBODY DS BLD Lab Routine Systemic lupus erythematosus, unspecified SLE type, unspecified organ involvement status (HCC) Expected: 04/10/2023, Expires: 06/10/2023[facility] Work Phone: Comment on above:Expected: 04/10/2023, Expires: 06/10/2023Start: 04-10-2023 End: 51-82-4707Pranujp/Creatinine [Mass Ratio] in UrinePROTEIN CREATININE RATIO Lab Routine Systemic lupus erythematosus, unspecified SLE type, unspecified organ involvement status (HCC) Expected: 04/10/2023, Expires: 06/10/2023 [facility] Work Phone: Comment on above:Expected: 04/10/2023, Expires: 06/10/2023Start: 04-10-2023 End: 64-19-3849Arkmrhcdqk complete panel - UrineURINALYSIS, WITH MICROSCOPIC Lab Routine Systemic lupus erythematosus, unspecified SLE type, unspecified organ involvement status (HCC) Expected: 04/10/2023, Expires: 06/10/2023[facility] Work Phone: Comment on above:Expected: 04/10/2023, Expires: 06/10/2023Start: 86-82-4707MD CONTROLLED (<130/80)BP CONTROLLED (<130/80) [facility]: 02-21-2023 End: 244632-doyfhdusujefpz D3 [Mass/volume] in Serum or PlasmaVITAMIN D 25 HYDROXY Lab Routine Hyperparathyroidism (HCC) Expected: 02/21/2023, Expires: 03/23/2023[facility] Work Phone: comment on above:Expected: 02/21/2023, Expires: 03/23/2023Start: 02-21-2023 End: 19-97-9650Ccelqrk [Mass/volume] in Serum or PlasmaCALCIUM TOTAL BLD Lab Routine Hyperparathyroidism (HCC) Expected: 02/21/2023, Expires: 03/23/2023 [facility] Work Phone: comment on above:Expected: 02/21/2023, Expires: 03/23/2023Start: 02-21-2023 End: 04-04-3589Udojdcjkth.intact [Mass/volume] in Serum or PlasmaPTH INTACT BLD Lab Routine Hyperparathyroidism (HCC) Expected: 02/21/2023, Expires: 03/23/2023 [facility] Work Phone: comment on above:Expected: 02/21/2023, Expires: 03/23/2023Start: 02-04-2023 End: 95-40-5625AOQ BY IFA WITH REFLEXOhiohealth Shelby Hospital Work Phone: Comment on above:Expected: 02/04/2023, Expires: 04/06/2023Start: 02-04-2023 End: 99-51-9420Qrwgzf citrullinated peptide IgG Ab [Units/volume] in Serum or PlasmaOhiohealth Shelby Hospital Work Phone: Comment on above:Expected: 02/04/2023, Expires: 04/06/2023Start: 02-04-2023 End: 84-83-8032MBM ANTIBODY DS DCParkwood Hospital Work Phone: Comment on above:Expected: 02/04/2023, Expires: 04/06/2023Start: 87-07-1972MV CONTROLLED (<130/80)BP CONTROLLED (<130/80) [facility]: 12-19-2022 End: 66-42-4070Ofkpckhyjqsd [Mass/mass] in StoolCALPROTECTIN,FECAL Lab Routine Diarrhea, unspecified type Expected: 12/19/2022 (Approximate), Expires: 2023[facility] Work Phone: Comment on above:Expected: 12/19/2022 (Approximate), Expires: 2023Start: 12-19-2022 End: 23-66-1413Tilrhnpsebawjo difficile toxin genes [Presence] in Stool by RAVIN with probe detectionC. DIFFICILE PCR Lab Routine Diarrhea, unspecified type Expected: 12/19/2022 (Approximate), Expires: 2023[facility] Work Phone: Comment on above:Expected: 12/19/2022 (Approximate), Expires: 2023Start: 12-19-2022 End: 71-62-7826JWXFEPD BACTERIAL PANEL BY PCRENTERIC BACTERIAL PANEL BY PCR Lab Routine Diarrhea, unspecified type Expected: 12/19/2022 (Approximate), Expires: 2023[facility] Work Phone: Comment on above:Expected: 12/19/2022 (Approximate), Expires: 2023Start: 12-19-2022 End: 34-39-3386Mwutgug lamblia+Cryptosporidium sp Ag [Presence] in Stool by ImmunoassayCRYPTOSPORIDIUM AND GIARDIA ANTIGENS BY EIA Microbiology Routine Diarrhea, unspecified type Expected: 12/19/2022 (Approximate), Expires: 2023[facility] Work Phone: Comment on above:Expected: 12/19/2022 (Approximate), Expires: 2023Start: 12-19-2022 End: 26-09-4226BBHB ELASTASE, FECALPANC ELASTASE, FECAL Lab Routine Diarrhea, unspecified type Expected: 12/19/2022 (Approximate), Expires: 2023 [facility] Work Phone: Comment on above:Expected: 12/19/2022 (Approximate), Expires: 2023Start: 87-82-4622Zlfux depression screening assessment DEPRESSION SCREENINGTriHealthtart: 09-22-2022 End: 31-92-1019Xtpedys function 2000 panel - Serum or PlasmaHEPATIC FUNCTION PNL Lab Routine Mixed hyperlipidemia Expected: 09/22/2022, Expires: 11/22/2022 [facility] Work Phone: Comment on above:Expected: 09/22/2022, Expires: 11/22/2022Start: 09-22-2022 End: 44-74-5300Tanjh 1996 panel - Serum or PlasmaLIPID PANEL BASIC Lab Routine Mixed hyperlipidemia Expected: 09/22/2022, Expires: 11/22/2022[facility] Work Phone: Comment on above:Expected: 09/22/2022, Expires: 11/22/2022Start: 20-35-4786WWCG, Provider: SHERRY TAYLORI ULTRASOUND 01,[id number], Status: Pen, Time: 8:45 AMECHO, Provider: SHERRY TAYLORI ULTRASOUND 01,[id number], Status: Pen, Time: 8:45 AM[facility] DO Work Phone: Start: 15-70-7557AtqukewshioHLSIRQMCGEVVbgrngkxu ClinicStart: 60-09-0222HEOTVOIKNS CANCER SCREENINGCOLORECTAL CANCER SCREENING [facility]: 09-08-2022 End: 83-06-1017Nkewilq [Mass/volume] in Serum or PlasmaCALCIUM TOTAL BLD Lab Routine Hyperparathyroidism (HCC) Expected: 09/08/2022, Expires: 11/08/2022 [facility] Work Phone: comment on above:Expected: 09/08/2022, Expires: 11/08/2022Start: 09-08-2022 End: 41-21-3194Vkecpxgeec.intact [Mass/volume] in Serum or PlasmaPTH INTACT BLD Lab Routine Hyperparathyroidism (HCC) Expected: 09/08/2022, Expires: 11/08/2022 [facility] Work Phone: comment on above:Expected: 09/08/2022, Expires: 11/08/2022Start: [id number] ONLY, Provider: SHERRY TAYLORI NUCLEAR 01,[id number], Status: Pen, Time: 10:00 AMREST ONLY, Provider: SHERRY TAYLORI NUCLEAR 01,[id number], Status: Pen, Time: 10:00 AMMP[facility] DO Work Phone: Start: [id number] DIRECTIVE DISCUSSIONADVANCE DIRECTIVE DISCUSSIONTriHealthtart: 26-47-8664KGWGEOULGB ASSESSMENT DEPRESSION ASSESSMENTTriHealthtart: 53-34-3861COTKTJZNM4, Provider: SHERRY HHVI NUCLEAR 01,[id number], Status: Pen, Time: 10:00 AMSTRESSNUC2, Provider: SHERRY HHVI NUCLEAR 01,[id number], Status: Pen, Time: 10:00 [facility] Work Phone: Start: 06-18-2022 End: 08-18-2022 reactive protein [Mass/volume] in Serum or PlasmaC-REACTIVE PROTEIN (CRP) Lab Routine Systemic lupus erythematosus, unspecified SLE type, unspecified organ involvement status (HCC) Expected: 06/18/2022, Expires: 08/18/2022[facility] Work Phone: Comment on above:Expected: 06/18/2022, Expires: 08/18/2022Start: 06-18-2022 End: 24-06-4864YEF W Auto Differential panel - BloodCBC + DIFF Lab Routine Systemic lupus erythematosus, unspecified SLE type, unspecified organ involve ment status (HCC) Expected: 06/18/2022, Expires: 08/18/2022[facility] Work Phone: Comment on above:Expected: 06/18/2022, Expires: 08/18/2022Start: 06-18-2022 End: 29-06-1913Czifzpjaol C3 [Mass/volume] in Serum or PlasmaC3 COMPLEMENT BLD Lab Routine Systemic lupus erythematosus, unspecified SLE type, unspecified organinvolvement status (HCC) Expected: 06/18/2022, Expires: 08/18/2022[facility] Work Phone: Comment on above:Expected: 06/18/2022, Expires: 08/18/2022Start: 06-18-2022 End: 22-04-4077Iasxzvbpww C4 [Mass/volume] in Serum or PlasmaC4 COMPLEMENT BLD Lab Routine Systemic lupus erythematosus, unspecified SLE type, unspecified organinvolvement status (HCC) Expected: 06/18/2022, Expires: 08/18/2022[facility] Work Phone: Comment on above:Expected: 06/18/2022, Expires: 08/18/2022Start: 06-18-2022 End: 42-38-1714Eupryifnuwxav metabolic 2000 panel - Serum or PlasmaCOMP METABOLIC PANEL Lab Routine Systemic lupus erythematosus, unspecified SLE type, unspecified organ involvement status (HCC) Expected: 06/18/2022, Expires: 08/18/2022[facility] Work Phone: Comment on above:Expected: 06/18/2022, Expires: 08/18/2022Start: 06-18-2022 End: 30-89-2375Lxmqbpgapyt sedimentation rateSED RATE WESTERGREN Lab Routine Systemic lupus erythematosus, unspecified SLE type, unspecified organ involvement status (HCC) Expected: 06/18/2022, Expires: 08/18/2022[facility] Work Phone: Comment on above:Expected: 06/18/2022, Expires: 08/18/2022Start: 06-18-2022 End: 89-27-8538Dwoatgb/Creatinine [Mass Ratio] in UrinePROTEIN CREATININE RATIO Lab Routine Systemic lupus erythematosus, unspecified SLE type, unspecified organ involvement status (HCC) Expected: 06/18/2022, Expires: 08/18/2022 [facility] Work Phone: Comment on above:Expected: 06/18/2022, Expires: 08/18/2022Start: 06-18-2022 End: 82-55-6273Byujagrncc complete panel - UrineURINALYSIS, WITH MICROSCOPIC Lab Routine Systemic lupus erythematosus, unspecified SLE type, unspecified organ involvement status (HCC) Expected: 06/18/2022, Expires: 08/18/2022[facility] Work Phone: Comment on above:Expected: 06/18/2022, Expires: 08/18/2022Start: 06-11-2022 End: 39-03-3132Necqymhjbqcnl metabolic 2000 panel - Serum or PlasmaCOMP METABOLIC PANEL Lab Routine Hyperparathyroid (HCC) Expected: 06/11/2022, Expires: 08/11/2022[facility] Work Phone: Comment on above:Expected: 06/11/2022, Expires: 08/11/2022tart: 06-11-2022 End: 42-41-6487Amvgjbumdq.intact [Mass/volume] in Serum or PlasmaPTH INTACT BLD Lab Routine Hyperparathyroid (HCC) Expected: 06/11/2022, Expires: 08/11/2022 [facility] Work Phone: Comment on above:Expected: 06/11/2022, Expires: 08/11/2022tart: 04-18-2022 End: 43-91-8042ISOHJ-LINK N-TELOPEPCParkwood Hospital Work Phone: Comment on above:Expected: 04/18/2022 (Approximate), Expires: 06/18/2022tart: 28-00-3594Rrxivizqd vaccinationINFLUENZA (#1)[facility]: 03-20-2022 End: 11-78-6438Lipcnvp [Mass/volume] in Serum or PlasmaCALCIUM TOTAL BLD Lab Routine 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) High risk medication use Expected: 03/20/2022, Expires: 05/20/2022 [facility] Work Phone: Comment on above:Expected: 03/20/2022, Expires: 05/20/2022tart: 76-73-7080AMM of headMR head/brain wo [facility]: 11-46-4511Mcbgmyaq identified in Urine by CultureUrine [facility] Hospitaltart: 12-09-2021 End: 24-11-2550OZE double strand Ab [Units/volume] in Serum by Immunoassay [facility] Work Phone: comment on above:Expected: 12/09/2021 (Approximate), Expires: 02/08/2022tart: 12-09-2021 End: 14-72-3037Ekcwezi/Creatinine [Mass Ratio] in UrineOhiohealth Shelby Hospital Work Phone: comsbog on above:Expected: 12/09/2021 (Approximate), Expires: 02/08/2022tart: 12-09-2021 End: 59-51-6958Sndofmedhk complete panel - UrineOhiohealth Shelby Hospital Work Phone: comment on above:Expected: 12/09/2021 (Approximate), Expires: 02/08/2022tart: 02-08-2022Medicare Annual Wellness VisitMedicare Annual Wellness VisitTriHealthtart: 56-36-9434COOOM-19 VACCINE (3 - Booster for Iris series)COVID-19 VACCINE (3 - Booster for Iris series) [facility]: 76-50-5000OLORVYN DIRECTIVE DISCUSSIONADVANCE DIRECTIVE DISCUSSIONTriHealthtart: 69-79-4083ARIBSSOMXP ASSESSMENTDEPRESSION ASSESSMENTTriHealthtart: 60-44-4603TTHFSTAGBKOZ: 65+ (3 - PPSV23 if available, else PCV20)PNEUMOCOCCAL: 65+ (3 - PPSV23 if available, else PCV20) [facility]: 60-91-0160VHMRVNMSZEAC: 65+ (4 - PPSV23 if available, else PCV20)PNEUMOCOCCAL: 65+ (4 - PPSV23 if available, else PCV20)[facility]: 05-27-2718QOSSOVVFBDRD: 65+ (4 - PPSV23 or PCV20)PNEUMOCOCCAL: 65+ (4 - PPSV23 or PCV20)[facility]: 16-01-2896JYHLUWQLE AGE 65 AND OVER WITH 5YR LOOKBACK (#1)PNEUMOVAX AGE 65 AND OVER WITH 5YR LOOKBACK (#1)[facility]: 97-62-5358Gdaymbssya measurementCreatinine LevelKeenan Private Hospital: 45-93-5535Vlyhpvebf measurementPotassium Level [facility]: 74-72-4426Cthjlqo stimulating hormone measurementTSH LevelUniversity Hospitals of ClevelandStart: 04-94-8230QHEDQJKKD B (1 of 3 - Risk 3-dose series)HEPATITIS B (1 of 3 - Risk 3-dose series) [facility]: 36-13-1674Caywtvtiq B Vaccine (1 of 3 - Risk 3-dose series)Hepatitis B Vaccine (1 of 3 - Risk 3-dose series)[facility]: 46-22-1140SPC Vaccine (1 - 1-dose 60+ series)RSV Vaccine (1 - 1-dose 60+ series) [facility]: 24-57-6939ONWBESJJK (FIT-DNA)COLOGUARD (FIT-DNA)[facility]: 46-72-1542IT COLONOGRAPHYCT COLONOGRAPHYTriHealthtart: 17-82-8462PWCMY OCCULT BLOODFECAL OCCULT BLOODTriHealthtart: 02-17-2001 Screening for malignant neoplasm of colonTriHealthtart: 02-17-2001 SIGMOIDOSCOPYSIGMOIDOSCOPYTriHealthtart: 63-98-0833CgpcwjmgzyxSNPPAHZIP [facility]: 85-05-7289EBhR/Tdap/Td Vaccines (1 - Tdap)DTaP/Tdap/Td Vaccines (1 - Tdap)[facility]: 04-70-8075FBhS,Tdap and Td Vaccines (1 - Tdap)DTaP,Tdap and Td Vaccines (1 - Tdap)[facility]: 17-78-7647CHTVMLYJD A (1 of 2 - Risk 2-dose series)HEPATITIS A (1 of 2 - Risk 2-dose series)[facility]: 19-06-1983Oalaxxbdy A Vaccine (1 of 2 - Risk 2-dose series)Hepatitis A Vaccine (1 of 2 - Risk 2-dose series) [facility]: 87-29-2436OCLCOBBRZ B (1 of 3 - Risk 3-dose series) HEPATITIS B (1 of 3 - Risk 3-dose series)[facility]: 24-18-8612Fcuzg microalbumin profileTriHealthtart: 42-33-3707Bpnkx BMI Follow Up Plan Adult BMI Follow Up PlanNovant Health Kernersville Medical Centertart: 18-35-0120VEODES PCP TEAM CHRONIC DISEASE VISITANNUAL PCP TEAM CHRONIC DISEASE VISITTriHealthtart: 52-74-1486Prgwhwm ScreeningAnxiety ScreeningTriHealthtart: 01-00-6778ZU CONTROLLED (<130/80)BP CONTROLLED (<130/80)[facility]: 02-17-1974 Depression ScreeningDepression ScreeningWVUMedicine Barnesville Hospitalrt: 02-17-1974 Diabetes mellitus screeningDiabetes ScreeningSelect [facility] Start: 50-36-7971Qvnrvttjq C screeningHepatitis C ScreeningHolzer Hospitalart: 66-82-0961GWR SCREENINGHIV SCREENINGTriHealthtart: 07-63-5099MFJ (1 of 2 - Risk 2-dose series)MMR (1 of 2 - Risk 2-dose series) [facility]: 22-07-8537VVP Vaccine (1 of 2 - Risk 2-dose series)MMR Vaccine (1 of 2 - Risk 2-dose series)[facility]: 43-81-6103Atlepntqa for malignant neoplasm of cervixCervical Cancer ScreeningWVUMedicine Barnesville Hospitalrt: 39-76-4852Inywtrxcffqbj B Vaccine: Consider Based On Risk (1 of 4 - Increased Risk)Meningococcal B Vaccine: Consider Based On Risk (1 of 4 - Increased Risk) [facility]: 45-79-4765QDJAZHVOJIHMH B: Consider based on risk (1 of 4 - Increased Risk Bexsero 2-dose series)MENINGOCOCCAL B: Consider based on risk (1 of 4 - Increased Risk Bexsero 2-dose series)[facility]: 02-17-1966 MENINGOCOCCAL B: Consider based on risk (1 of 4 - Increased Risk)MENINGOCOCCAL B: Consider based on risk (1 of 4 - Increased Risk)[facility]rt: 18-70-3303GLGWCFNLV A (1 of 2 - Risk 2-dose series)HEPATITIS A (1 of 2 - Risk 2- dose series)[facility]rt: 10-81-3817Ujihp panelLipid PanelKeenan Private Hospital: 1956Medicare Annual Wellness VisitMedicare Annual Wellness Visit (AWV)[facility]: 1955 Screening for malignant neoplasm of colonKeenan Private Hospital: 96-69-9272Yrfxunizb for osteoporosisBone Density Scaniversity Hospitals of ClevelandBacteria identified in Urine by CultureMercy Health Anderson Hospital Work Phone: End: 04-25-2026 difficile by PCRC difficile by PCR Lab Routine Diarrhea of presumed infectious origin 1 Occurrences starting 04/25/2025 until 04/25/2026 [facility] Work Phone: Comment on above:1 Occurrences starting 04/25/2025 until 04/25/2026 End: 03-13-2023 reactive protein [Mass/volume] in Serum or PlasmaC-REACTIVE PROTEIN (CRP) Lab Routine Membranous lupus nephritis syndrome (HCC) High risk medicationuse Systemic lupus erythematosus, unspecified SLE type, unspecified organ involvement status (HCC) Every 4 months for 6 Occurrences starting 03/13/2022 until 03/13/2023, 1 completed[facility] Work Phone: Comment on above:Every 4 months for 6 Occurrences starting 03/13/2022 until 03/13/2023, 1 completedCALCIUM 24 HR URINECALCIUM 24 HR URINE Lab Routine Osteopenia, unspecified location Vitamin D deficiency disease Serumcalcium elevated 04/22/2022 8:30 AM [facility] Work Phone: End: 19-03-3898Xwlybst mri for velocity flow mappingMRI CARDIAC VELOCITY FLOW MAP Radiology Routine Hypertrophic obstructive cardiomyopathy (HCC) 1 Occu rrences starting 03/27/2022 until 04/26/2023[facility] Work Phone: Comment on above:1 Occurrences starting 03/27/2022 until 04/26/2023 End: 09-84-1579Zjtjbbt mri w/wo contrast & further seqMRI CARDIAC MORPH FUNC WO/W IVCON Radiology Routine Hypertrophic obstructive cardiomyopathy (HCC) 1 Occurrences starting 03/27/2022 until 04/26/2023[facility] Work Phone: Comment on above:1 Occurrences starting 03/27/2022 until 04/26/2023 End: 17-38-6680SEN W Auto Differential panel - BloodCBC + DIFF Lab Routine Membranous lupus nephritis syndrome (HCC) High risk medication use Systemic l upus erythematosus, unspecified SLE type, unspecified organ involvement status (HCC) Every 4 monthsfor 6 Occurrences starting 03/13/2022 until 03/13/2023, 1 completed[facility] Work Phone: Comment on above:Every 4 months for 6 Occurrences starting 03/13/2022 until 03/13/2023, 1 completedClostridioides difficile toxin genes [Presence] in Stool by RAVIN with probe detectionC. DIFFICILE PCR Lab Routine Diarrhea, unspecified type Ordered: [facility]CParkwood Hospital Work Phone: Comznra on above:Ordered: 02/21/2022 End: 08-21-4298KBJTYYIASRT DIAGNOSTICCOLONOSCOPY DIAGNOSTIC Endoscopy Routine IBD (inflammatory bowel disease) 1 Occurrences starting [address] [place] [address] Work Phone: Comment on above:1 Occurrences starting 2023 until 02/19/2024 End: 51-07-4644Sqdzvjovbe C3 [Mass/volume] in Serum or PlasmaC3 COMPLEMENT BLD Lab Routine Membranous lupus nephritis syndrome (HCC) High risk medication use Systemic lupus erythematosus, unspecified SLE type, unspecified organ involvement status (HCC) Every 4months for 6 Occurrences starting 03/13/2022 until 03/13/2023, 1 SputnikBotOhiohealth Shelby Hospital Work Phone: Comment on above:Every 4 months for 6 Occurrences starting 03/13/2022 until 03/13/2023, 1 completed End: 99-92-0680Ftkbsktubk C4 [Mass/volume] in Serum or PlasmaC4 COMPLEMENT BLD Lab Routine Membranous lupus nephritis syndrome (HCC) High risk medication use Systemic lupus erythematosus, unspecified SLE type, unspecified organ involvement status (HCC) Every 4months for 6 Occurrences starting 03/13/2022 until 03/13/2023, 1 SputnikBotOhiohealth Shelby Hospital Work Phone: Comment on above:Every 4 months for 6 Occurrences starting 03/13/2022 until 03/13/2023, 1 completed End: 36-99-3653Ppkojjiuckivb metabolic 2000 panel - Serum or PlasmaCOMP METABOLIC PANEL Lab Routine Membranous lupus nephritis syndrome (HCC) High risk medication useSystemic lupus erythematosus, unspecified SLE type, unspecified organ involvement status (HCC) Every 4 months for 6 Occurrences starting 03/13/2022 until 03/13/2023, 1 completedOhio[facility] Hospital Work Phone: Comment on above:Every 4 months for 6 Occurrences starting 03/13/2022 until 03/13/2023, 1 completedCREATININE 24 HR URCREATININE 24 HR UR Lab Routine Osteopenia, unspecified location Vitamin D deficiency disease Serumcalcium elevated 04/22/2022 8:30 AM [facility] Work Phone: End: 96-94-7183VM Foot - left WO contrastCT FOOT WO IVCON LEFT Radiology Routine Closed fracture of left foot, initial encounter 1 Occurrences starting 01/23/2025 until 02/22/2026[facility] Work Phone: Comment on above:1 Occurrences starting 01/23/2025 until 02/22/2026 End: 30-17-0177LT watchman full [facility] Work Phone: Comment on above:Once for 1 Occurrences starting 08/15/2024 until 4Dxa bone density study 1/> sites axial skelDXA-AXIAL SKELETON Radiology Routine Asymptomatic postmenopausal status 03/13/2022 3:21 PM [facility] Work Phone: End: 93-15-7714PTG Skeletal system.axial Views for bone density and vertebral fractureDXA-AXIAL SKELETON WITH VFA Radiology Routine Osteopenia, unspecified location 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 Work Phone: ecg 12 LeadECG 12 Lead ECG Routine Pre-operative clearance 01/27/2025 8:30 AM [facility] Work Phone: ecg 12 lead (Clinic Performed)ECG 12 lead (Clinic Performed) ECG Routine Paroxysmal atrial fibrillation (CMS/HCC) Atypical atrial flutter (CMS/HCC) 11/16/2023 3:30 PM [facility] Work Phone: ecg 12 lead (Clinic Performed)ECG 12 lead (Clinic Performed) ECG Routine Paroxysmal atrial fibrillation (Multi) 02/15/2024 4:42 PM [facility] Work Phone: ecg 12 lead (Clinic Performed)ECG 12 lead (Clinic Performed) ECG Routine Paroxysmal atrial fibrillation (Multi) 05/16/2024 4:03 PM [facility] Work Phone: End: 03-00-1628ZWF COMPLETEECG COMPLETE ECG Routine Hypertrophic obstructive cardiomyopathy (HCC) 1 Occurrences starting 03/27/2022 until 03/27/2023[facility] Work Phone: Comment on above:1 Occurrences starting 03/27/2022 until 03/27/2023 End: 66-06-0685StuvjwnzxirzinlvFAHY Cardiology Routine Hypertrophic obstructive cardiomyopathy (HCC) 1 Occurrences starting 03/27/2022 until 03/27/2023[facility] Work Phone: Comment on above:1 Occurrences starting 03/27/2022 until 03/27/2023Electrophysiology studyElectrophysiology procedure Electrophysiology Routine Persistent atrial fibrillation (Multi) Atypical atrial flutter (Multi) 01/05/2024 2:06 PM [facility] Work Phone: End: 95-93-0242Ioisyowgqryieggku [facility] Work Phone: Comment on above:Once for 1 Occurrences starting 03/22/2024 until 03/22/2024ENTERIC BACTERIAL PANEL BY PCRENTERIC BACTERIAL PANEL BY PCR Lab Routine Diarrhea, unspecified type [facility]: 2[facility]levelNew[facility] Work Phone: Comment on above:Ordered: 02/21/2022 End: 63-80-8873Fxvfrnvgfxd sedimentation rateSED RATE WESTERGREN Lab Routine Membranous lupus nephritis syndrome (HCC) High risk medication use Systemic lupus erythematosus, unspecified SLE type, unspecified organ involvement status (HCC) Every4 months for 6 Occurrences starting 03/13/2022 until 03/13/2023, 1 completedOhio[facility] Work Phone: Comment on above:Every 4 months for 6 Occurrences starting 03/13/2022 until 03/13/2023, 1 completedGiardia lamblia+Cryptosporidium sp Ag [Presence] in Stool by ImmunoassayCRYPTOSPORIDIUM AND GIARDIA ANTIGENS BY EIA Microbiology Routine Diarrhea, unspecified type Ordered: 02/21/2022 [facility] Work Phone: Comment on above:Ordered: 02/21/2022Lipid 1996 panel - Serum or PlasmaLipid profile Lab Routine Mixed hyperlipidemia 03/30/2024 7:48 PM [facility] End: 00-22-6322Sdqro panelLipid panel Lab Routine Mixed hyperlipidemia 1 Occurrences starting 03/30/2024 until 03/30/2025[facility] HospitalComment on above:1 Occurrences starting 03/30/2024 until 03/30/2025 End: 97-66-2814EK Biliary ducts and Pancreatic duct WO and W contrast IVMRI PANC/JEANIE WO/W IVCON Radiology Routine Pancreatic cyst 1 Occurrences starting 09/30/2023 until 5CParkwood Hospital Work Phone: comment on above:1 Occurrences starting 09/30/2023 until 10/29/2024 End: 60-96-1510TX Unspecified body region 3D post processingMRI 3D POST PROCESSING Radiology Routine Pancreatic cyst 1 Occurrences starting 09/30/2023 until 5CParkwood [facility] Work Phone: comment on above:1 Occurrences starting 09/30/2023 until 10/29/2024 End: 14-86-1077Qnbprxrouot imaging w/tomographic spect & ctNM PARATHYROID W SPECT/CT Radiology Routine Hyperparathyroidism (HCC) 1 Occurrences starting 07/01/2022 until 3CPark[facility] Work Phone: comment on above:1 Occurrences starting 07/01/2022 until 3Patient EducationReg[facility] Hospital [facility] Work Phone: Patient referralRegency Hospital [facility]tr Work Phone: Renal function 2000 panel - Serum or PlasmaRENAL FUNCTION PANEL Lab Routine Paroxysmal atrial fibrillation (HCC) Epistaxis Preoperative examination, unspecified 08/11/2024 10:10 AM [facility] SARS-CoV-2 (COVID-19) N gene [Presence] in Respiratory specimen by RAVIN with probe detectionRegency Hospital [facility] Ctr Work Phone: [phone]-PwN-2 (COVID-19) RNA [Presence] in Respiratory specimen by RAVIN with probe detectionPRE-PROCEDURE & PRE-OPERATIVE COVID Microbiology Routine Encounter for prophylactic measures, unspecified Ordered: 2CParkwood Hospital Work Phone: Comment on above:Ordered: 03/06/2022 End: 70-93-7715Mme minute walkSix minute walk Respiratory Care Routine Dyspnea on exertion 1 Occurrences starting 10/11/2024 until 10/11/2025[facility] Work Phone: Comment on above:1 Occurrences starting 10/11/2024 until 10/11/2025SURGICAL PATHOLOGYOhiohealth Shelby Hospital Work Phone: Comment on above:Release Upon Ordering for 1 Occurrences starting 04/02/2023, 1 completed End: 51-93-3988Ivjmzfa profile includes TSH SL7Pqavkod profile includes TSH FT4 Lab Routine Acquired hypothyroidism 1 Occurrences starting 03/30/2024 until 03/30/2025[facility] CenterS[facility] [employer] [facility] HospitalComment on above:1 Occurrences starting 03/30/2024 until 03/30/2025Thyroid profile includes TSH FG9Rjblvsb profile includes TSH FT4 Lab Routine Acquired hypothyroidism 03/30/2024 7:48 PM EDT [employer] End: 55-72-4224Bivzvkovyp complete panel - UrineURINALYSIS, WITH MICROSCOPIC Lab Routine Membranous lupus nephritis syndrome (HCC) High risk medication use Systemic lupus erythematosus, unspecified SLE type, unspecified organ involvement status (HCC) Every 4 months for 6 Occurrences starting 03/13/2022 until 03/13/2023[facility] Work Phone: Comment on above:Every 4 months for 6 Occurrences starting 03/13/2022 until 03/13/2023 End: 34-00-9489[facility] Work Phone: Comment on above:Once for 1 Occurrences starting 09/12/2024 until 09/12/2024 End: 26-56-1921EV Kidney - bilateral and Urinary bladderUS KIDNEY/BLADDER Radiology Routine Membranous glomerulonephritis 1 Occurrences starting 12/29/2023until 5CParkwood Hospital Work Phone: Comment on above:1 Occurrences starting 12/29/2023 until 01/27/2025US Kidney - bilateral and Urinary bladderUS KIDNEY/BLADDER Radiology Routine Membranous glomerulonephritis 03/28/2024 11:57 AM [facility] Work Phone: us THYROID/PARATHYROID (POC) ENDO USE ONLYUS THYROID/PARATHYROID (POC) ENDO USE ONLY Imaging Diagnostic Routine Primary hyperparathyroidism (HCC) Ordered: 2CParkwood Hospital Work Phone: comment on above:Ordered: 07/07/2022 End: 82-63-5925HT Foot - right AP and Lateral and obliqueXR FOOT GENERAL 3V AP/LAT/OBL RIGHT Radiology Routine Pain in right foot 1 Occurrences starting 12/19/[address] [place] [address] Work Phone: Comment on above:1 Occurrences starting 12/19/2024 until 01/18/2026 End: 44-81-1103GH Foot - right AP and Lateral and obliqueXR FOOT GENERAL 3V AP/LAT/OBL RIGHT Radiology Routine Sprain of right foot, initial encounter Closed nondisplaced fracture of navicular bone of right foot, initial encounter Osteoarthritis of midtarsal joint of right foot 1 Occurrences starting 12/21/[address] [place] [address] Work Phone: Comment on above:1 Occurrences starting 12/21/2024 until 01/20/2026 End: 14-29-9885RM Foot - right AP and Lateral and obliqueXR FOOT GENERAL 3V AP/LAT/OBL RIGHT Radiology Routine Charcot arthropathy 1 Occurrences starting 04/18/2025 until 05/18/2026[facility] Work Phone: Comment on above:1 Occurrences starting 04/18/2025 until 05/18/2026 End: 81-39-1736WP FOOT GENERAL 3V AP/LAT/OBL LEFTXR FOOT GENERAL 3V AP/LAT/OBL LEFT Radiology Routine Pain in left foot 1 Occurrences starting 07/02/2023 until 07/31/2024[facility] Work Phone: Comment on above:1 Occurrences starting 07/02/2023 until 07/31/2024 End: 95-64-3576VJ Knee - left 4 ViewsXR KNEE GENERAL 4V AP BOTH/PA BOTH/LAT/MERC LEFT Radiology Routine Osteopenia of multiple sites S/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 Acute pain of left knee 1 Occurrences s tarting 03/15/2024 until 5CParkwood [facility] Work Phone: Comment on above:1 Occurrences starting 03/15/2024 until 04/14/2025XR Knee - left 4 ViewsXR KNEE GENERAL 4V AP BOTH/PA BOTH/LAT/MERC LEFT Radiology Routine Osteopenia of multiple sites S/P parathyroidectomy [employer] (current) use of 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 Acute pain of left knee 03/15/2024 3:40 PM EDTCProMedica [facility] Immunizations Immunization DateImmunizationNotesCare IldyetueIwxkjjsx95-66-5724Eysepdjz trivalent influenza vaccine, adjuvanted, preservative freeDennis Furlong DO Work Phone: [facility] HospitalQnxjeb75-19-0694Brhlfcagsfgk, In Clinic,; Translations: [Drug or medicament (substance)]Wojciech Treviño DO Work Phone: [facility] HospitalMyqxdy67-83-5306dlqfzhnlj virus vaccine, unspecified formulationWojciech Treviño DO Work Phone: [facility] HospitalPbfwte23-28-3170qdnrzwalx, seasonal, injectableYuriy Conway MD Work Phone: [facility]02-01-2024influenza (HD-IIV4) vaccine, age 65+ yr, high dose, quadrivalent, PF (FLUZONE HIGH-DOSE) Obdulia Ann PA-C Work Phone: [facility] HospitalRldhlz64-14-2454dxogdjeykdm syncytial virus (RSV) vaccine, adjuvanted (AREXVY)Obdulia Ann PA-C Work Phone: [facility] HospitalNonqpx50-51-6191lixwbhccd virus vaccine, unspecified formulationCharmaine Vincent RIGGING [employer] Work Phone: [phone] Work Phone: [phone] Conjugate, unspecified formulationNadege Murphy DO Work Phone: [phone] Work Phone: [phone] (PCV20) vaccine, 20 valent (PREVNAR 20)Nadege Bianchijohn DO Work Phone: [phone] HospitalKmnctv92-69-0522lkgiirosk nasal, unspecified formulationObdulia Ann PA-C Work Phone: [phone] HospitalWlgfhu32-42-5656uwvgblfvq, high-dose, quadrivalent vaccine (FLUZONE HIGH DOSE QUADRIVALENT)[facility] 2 Work Phone: [facility] HospitalAidxek37-32-9088kvywicend virus vaccine, unspecified formulationHeather Gruber PA-C Work Phone: [facility] HospitalWpkteg95-06-3902Pnxkkrl COVID-19 Vaccine 100 MCG/0.5ML Intramuscular SuspensionDennis G Furlong Work Phone: [phone] 250 DO Work Phone: [phone]zp, high-dose, quadrivalent vaccine (FLUZONE HIGH DOSE QUADRIVALENT)Dione Frances MD Work Phone: [facility] HospitalJrmevz09-99-4238Skeyzqh COVID-19 Vaccine 0.5 ML Intramuscular SuspensionDennis G Furlong Work Phone: [phone]xmbhShrin[facility] 250 DO Work Phone: [phone], injectable, quadrivalent, contains preservativeDione Frances MD Work Phone: [facility] HospitalWvdulj92-70-3138cjpoqx vaccine recombinant Dione Frances MD Work Phone: [facility] HospitalCchodu92-06-6161exivkr vaccine recombinant Dione Frances MD Work Phone: [facility] HospitalGsqbkl54-21-5188qciwnpdfz, injectable, quadrivalent, preservative freeDione Frances MD Work Phone: [facility] Work Phone: [phone], seasonal, injectableDennis Furlong DO Work Phone: [facility] HospitalQmuote41-53-6084zdzgwdsrv, injectable, quadrivalent, contains preservativeDione Frances MD Work Phone: [facility] HospitalAhhfit30-11-3716rgpjahzga, injectable, quadrivalent, contains preservativeDione Frances MD Work Phone: [facility] HospitalSvucah20-60-5581fkhvnilmj nasal, unspecified formulationObdulia Ann PA-C Work Phone: [facility] HospitalUfdrfa94-43-3461gxxivrznb virus vaccine, unspecified formulationDennis Furlong DO Work Phone: [facility] HospitalNjzinz96-62-8844vnpunwkwb, injectable, quadrivalent, preservative freeLeeannrashard Bianchijohn DO Work Phone: [facility] HospitalOntdqf82-39-7948powontwzc, seasonal, injectable, preservative Hillary Frances MD Work Phone: [facility] HospitalQbmzrz70-89-5940yawbgwfztrck polysaccharide vaccine, 23 Florian Frances MD Work Phone: [facility] HospitalUmieyz61-77-7913hgzkukqstupk conjugate vaccine, 13 Florian Frances MD Work Phone: [facility] Work Phone: [phone]hjzaxkxgx polysaccharide vaccine, 23 Florian Frances MD Work Phone: [facility] Work Phone: [phone]olrysz nasal, unspecified formulation Obdulia Ann PA-C Work Phone: [facility] HospitalSykxmc36-39-4141xqkddffey virus vaccine, unspecified formulationDennis Furlong DO Work Phone: [facility] HospitalBjdqza93-19-3642iswebhksd, seasonal, injectable, preservative Hillary Frances MD Work Phone: [facility] Work Phone: [phone]aone, injectable, quadrivalent, preservative Hillary Frances MD Work Phone: [facility] Work Phone: [phone]hvwjp, seasonal, injectableDione Frances MD Work Phone: [facility] HospitalNwokfw35-43-6005hxbifqaql virus vaccine, unspecified formulationDione Frances MD Work Phone: [facility] HospitalZpqfua12-20-6228irrhpiyyg virus vaccine, unspecified formulationDione Frances MD Work Phone: [facility] Work Phone: [phone]q virus vaccine, unspecified formulationDione Frances MD Work Phone: [facility] HospitalJrobaz75-98-8658vvfvflfkw virus vaccine, unspecified formulationDione Frances MD Work Phone: [facility] HospitalWdamct39-12-6735ybaejnijqdng polysaccharide vaccine, 23 valentDione Frances MD Work Phone: [facility] Payers DatePayer CategoryPayerPolicy [id number]-ram [id number] Care Other (unspecified) [facility] [id number]87436.832.315 24-87-4429Cgrglzumaxyvh or OtherMUTUAL [facility] 1.2.840.514815.1.13.647.2.7.9.239971.926826.00182-82-6557Yhthwvi693576-26 3yc03t75-gy96-40l6-6982-49j23696lu5378-32-5223Sbgwfan Health Insurance [id number] OF [place] MUTUAL OF [place] MEDICARE SUPPLEMENT [id number] 2020-[facility] [phone] [address] [place] [address] [id number] 1.2.840.969815.1.13.159.2.7.3.356534.315 [id number] 1.2.840.600133.1.13.159.2.7.3.029312.315 2015Medicare 1.2.840.219896.1.13.159.2.7.3.172527.42021-43-0702Hefkkpb 1.2.840.812257.1.13.159.2.7.3.218154.315 [id number]39451312-63-9618Cgimihx [id number] 2.0.1.463993.3.579.2.15125-28-5462Mqfbzbj87935679 2.0.1.266343.3.579.2.88317-82-6154Tagiajz98603844 2.0.1.222199.3.579.2.906097-44-1410Lazcpcj57402374 2.840.1.163037.3.579.2.032101-98-7708Suceapu25971097 2.840.1.457104.3.579.2.122825-50-9348Aturfjo3002947 2.16.840.1.643842.3.579.2.45471-50-1675Bwbwknj2886278 2.16.840.1.647847.3.579.2.53395-44-6522Ybxztww6851434 2.16.840.1.193492.3.579.2.95567-25-8647Fojofso5208197 2.16840.1.259844.3.579.2.499018-92-6468Etjyrhl1285273 2.16840.1.662529.3.579.2.977570-21-9585Reyoztw339371 2.16840.1.249632.3.579.2.322191-75-3709Rjxywri68347933 2.0.1.908954.3.579.2.154383-14-0449Kveschu98840240 2.840.1.033044.3.579.2.035776-68-7820Mcoxewo73464119 2.0.1.153922.3.579.2.594971-12-8061Sesweon22502056 2.0.1.408619.3.579.2.356799-21-1331Ztjylrt58963687 2.16840.1.924810.3.579.2.782075-86-6546Zwlrobm62589386 2.16840.1.702913.3.579.2.818149-73-1149Acrkcdc08245639 2.16840.1.487389.3.579.2.264465-61-5244Ftawjdm16329868 2.16840.1.986206.3.579.2.146653-41-2291Vaqfain97126128 2.16840.1.791530.3.579.2.729019-04-8548Zvlroeb91406691 2.840.1.027807.3.579.2.693082-29-4158Sbbxllp6810820 2.840.1.835159.3.579.2.596151-91-6272Bhaokog140574710 2.16840.1.178841.3.579.2.657807-67-3603Fbzrqjg340073450 2.0.1.750150.3.579.2.674682-19-5266Lybjody495414952 2.0.1.402117.3.579.2.758154-66-1063Mtnigbe583368742 2.0.1.466886.3.579.2.143994-45-2968Dqcymrn45252525 2.0.1.453021.3.579.2.697436-22-4492Tikphfe43869873 2.0.1.961105.3.579.2.549462-87-1825Nvxcztj63771863 2..1.433455.3.579.2.445027-65-8103Enwqjjk10962231 2.840.1.709932.3.579.2.520664-02-6850Qaenfli92981314 2.0.1.085248.3.579.2.772570-06-7630Yoilcwr802545255 2.840.1.791115.3.579.2.023551-37-6526Hosjlcg556730415 2.840.1.646006.3.579.2.644483-76-2154Nivshgg767616700 2.16.840.1.667890.3.579.2.346954-33-2807Fhfvmfk244321670 2.16.840.1.908183.3.579.2.1244MedicareMedicare-OP No Part [id number] Health InsuranceAetOrthopaedic Hospital [id number] 2.16.840.1.492090.3.579.2.487Lyegves24672037 2.16.840.1.513815.3.579.2.531 Itsfzfq33362166 2.16.840.1.542481.3.579.2.607Jpetaeq74033342 2.16.840.1.831835.3.579.2.531 Social History DateTypeDetailFacilityStart: 02-07-2022 End: 71-56-1112Awobdja smoking status NHISNever smoked tobaccoBlanchard Valley Health System [facility] Start: 10-29-2021 End: 21-74-7136Seoaish intakeCurrent drinker of alcohol (finding)[facility]: 11-17-4116Qdculkb SDOH Alcohol Xjxabfltv6Maqjtjvae ClinicStart: 26-05-0816Qpfnpuo SDOH Alcohol Commentvery rareTriHealthtart: 1955 Sex Assigned At BirthFemaleCMagruder [facility] Hospital Work Phone: Start: 03-27-2020 End: 73-37-5099Cqhrmkaz to SARS-CoV-2 (event)Not sureTriHealthtart: 09-02-2017 End: 40-20-9112Gyolhgb use and exposureSmokeless tobacco non-userTriHealthtart: 07-11-2020 End: 72-67-3425Om illicit drug useNo illicit drug useBlanchard Valley Health System [facility] Work Phone: Start: 07-11-2020 End: 84-98-2451Aqqwtdt Use Disorder Identification Test - Consumption [AUDIT-C] [facility] Work Phone: How often to you have a drink containing alcohol? Monthly or lessBlanchard Valley Health System [facility] Work Phone: Start: 00-92-9800Mhkeady Number of DrinksNot on file [facility]: 09-83-0407Wkmnkj identityIdentifies as female gender (finding)[facility] Work Phone: Start: 48-04-6539Jpmveh orientationHeterosexual (finding)[facility] Work Phone: Start: 76-45-7190Fnoalxx CommentseldomBlanchard Valley Health System [facility] Start: 08-27-2023 End: 53-70-9322Suyoyjk intakeLifetime non-drinker (finding)[facility] Work Phone: Start: 32-91-0541Ohw Assigned At BirthNot on file [facility] Work Phone: Start: 21-56-9841Rbcqncw Commentcaffeine: noneNOPerry County Memorial HospitalStart: 05-19-2024 End: 78-39-2466Delqzynxj beverage intakeCurrent non-drinker of alcohol (finding) [facility] PetHub SystemHas the Anzode, gas, oil, or water [employer] threatened to shut off services in your home in past 12MoNoProMedica Health SystemAre you now , , , , never or living with a partner?MarriedProMedica Health SystemHow many standard drinks containing alcohol do you have on a typical day?1 or 2ProMedica Health SystemHow often do you have 6 or more drinks on 1 occasion?NeverProMedica Health SystemDo you feel stress - tense, restless, nervous, or anxious, or unable to sleep at night because yourmind is troubled all the time - these days [OSQ]Only a little [facility] SystemStart: 73-81-2408Trhrcyvzy41XqeLvhgvk PetHub SystemStart: 03-22-2015 End: 36-22-0877OusUfcrma (finding)[facility] Health SystemHow hard is it for you to pay for the very basics like food, housing, medical care, and heatingNot very hardProCrenshaw Community Hospital PetHub SystemStart: 03-20-2025 End: 94-78-1616Auuhrguuh beverage intakeEx-drinker (finding)[facility] (I/We) worried whether (my/our) food would run out before (I/we) got money to buy more.Never trueBlanchard Valley Health System [facility] HospitalNEGATED: Highlighted rowStart: NINFHistory of tobacco usePassive smokerBlanchard Valley Health System [facility] Medical Equipment Procedure CodeEquipment CodeEquipment Original TextEquipment IdentifierDates Trident X3 Polyethylene Insert 0deg 36mm Sz [id number]: 99-20-1533Iajf Accolade Ii 5 132d Femoral - [id number]_eohAykrc: 74-23-7861Xmhhr Trident Ii 52mm E Tritanium Acetabular 5 Screw Hole Cluster Sterile - [id number]_impStart: 21-65-4848Txrz V40 36mm 0mm Offset Taper Biolox Delta Femoral Hip - [id number]_yfbZwrci: 88-54-3988Gdmpf 3d Lck Variax Bn Rt Ft - [id number]_alkDnlai: 22-27-2152Sadsu Bn 4mm 32mm Autofx - [id number]_impStart: 92-11-3516Bnsrl 3.0x38 Autofix - [id number]_xbfJlrld: 25-78-1771Xtfah Bn 3.5mm 16mm Variax Ft - [id number]_yfvUdurk: 04-03-2014 Screw Bn 3.5mm 14mm Variax Ft - [id number]_imoWaiwl: 84-71-4885Xzqmg Bn 3.5mm 12mm Variax Ft - [id number]_disTwmvd: 14-19-6254Hxmtm Trident Ii 6.5mm 25mm Bone Low Profile Hexagonal Sterile - [id number]_mfsPoacr: 91-54-3375Aese Fix .062in 9in Krsh Ss - [id number]_yocKpzkw: 04-03-2014 Device, Closure, 40mm Watchman Flx Pro Laac - [id number]_vzsOteyk: 24-66-9452Lapdo Triad 5cc - [id number]_fpqBiizi: 65-14-5063Rcknd Bn Augment Inj 3.0cc - [id number]_pnjIxapf: 44-72-6542Tmbfps Column Fusion Plate Lg Ortholoc 3di Plating - [id number]_nehPbzig: 49-50-7138Vimks Ortholoc 3.5mm Full Thread Purple 22mm Bone 3di Technology Polyaxial - [id number]_hpnLxqak: 98-97-5025Nzsjz Ortholoc 3.5mm Full Thread Purple 24mm Bone 3di Technology Self - [id number]_veyPiyon: 20-36-6362Dsdsp Bone 8mm 85mm Asnis Iii Titanium Fully Threaded Cannulated Self - [id number]_impStart: 33-02-7421Wwhkmfee 3di Screw Abdulkadir 3.5x26mm4176098_impStart: 70-67-1126Wpanl Ans3 25 Thrd Ti 8.0x [id number]_impStart: 96-60-4790Yssxt Ortholoc 3di 3.5mm Bronze 38mm Bone Low Profile Self Tapping Threaded - [id number]_madMqzig: 80-28-0288Uvkgh Ortholoc 3.5mm Full Thread Low Profile Bronze 40mm Bone 3di - [id number]_ksgVtpmf: 24-90-2837Bmxpc Ortholoc 3.5mm Full Thread Purple 16mm Bone 3di Technology Self - [id number] 4176091_impStart: 35-52-8609Hjopt Ortholoc 3di 3.5mm Full Thread Low Profile Purple 18mm Bone Lock Over - [id number]_siuPkhox: 58-37-0654Fzlsm Ortholoc 3.5mm Full Thread Purple 20mm Bone 3di Technology Lock - [id number] 4176093_impStart: 21-65-1208Cmrezzyg Staple 25x20 Nitinol 2-[id number]_abwOqmkd: 04-03-2025 Goals DatePatient GoalDesired Activity/State Functional Status MpusKgzbtdsohyCnqwlbQknpmtlr65-23-9574Fup you deaf, or do you have serious difficulty hearingNo 04/04/2025 3:25 PM EDT Isabella Best RN [facility] HospitalSivgzx74-97-7619Ttt you blind, or do you have serious difficulty seeing, even when wearing glassesNo 04/04/2025 3:25 PM EDT [facility] RN [facility]08-19-2025Do you have serious difficulty walking or climbing stairsNo 04/04/2025 3:25 PM EDT [facility] RN [facility]08-19-2025Do you have difficulty dressing or bathingNo 04/04/2025 3:25 PM EDT Isabella Best RN [facility] HospitalEsxbeq06-16-7499Arfxcnm of a physical, mental, or emotional condition, do you have difficulty doing errands alone such as visiting a physician's office or shoppingNo 04/04/2025 3:25 PM EDT Isabella Best RN [facility]01-12-2023Are you deaf, or do you have serious difficulty hearingNo 08/28/2022 10:02 AM Sravani Ramirez RN [facility] 28-72-6904Abg you blind, or do you have serious difficulty seeing, even when wearing glassesNo 08/28/2022 10:02 AM Sravani Ramirez RN [facility]01-12-2023Do you have serious difficulty walking or climbing stairsNo 08/28/2022 10:02 AM Sravani Ramirez RN [facility]01-12-2023Do you have difficulty dressing or bathingNo 08/28/2022 10:02 AM Sravani Ramirez RN [facility] HospitalMubxmv23-01-3520Bsysbvw of a physical, mental, or emotional condition, do you have difficulty doing errands alone such as visiting a physician's office or shoppingNo 08/28/2022 10:02 AM Sravani Ramirez RN [facility] HospitalEaeikh34-78-9283Xftnmdlnil statusPatient at BaselineMer[facility] Work Phone: [phone]frddza statusPatient Not at Baseline [facility] Work Phone: Mental Status QunaXdglczxonlDjhyemVaxfeiod11-29-7391Xylfqjw of a physical, mental, or emotional condition, do you have serious difficulty concentrating, remembering, or making decisionsNo 04/04/2025 3:25 PM EDT Isabella Best RN [facility] HospitalPcfusr57-68-2625Loynstu of a physical, mental, or emotional condition, do you have serious difficulty concentrating, remembering, or making decisionsNo 08/28/2022 10:02 AM Sravani Ramirez RN [facility]06-26-2022 Cognitive functionCognitive Status [facility] Work Phone: [phone]nur functionCognitive Status Patient Not at BaselineMer[facility] Work Phone: Clinical Notes 10-14-2017 to 06-26-2025 Note Date & EoorVgloQgamtfdg92-18-5640 NoteNationwide [facility]11-05-2025 NoteN[facility]11-05-2025 NoteN[facility] 06-21-2025 NoteN[facility]10-14-2025 NoteN[facility]10-08-2025 NoteN[facility]10-02-2025 NoteN[facility]10-01-2025 NoteN[facility]10-01-2025 Note [facility]10-01-2025 Miscellaneous Notes* Telephone Encounter - Wojciech Treviño DO - 05/17/2025 7:18 AM EDT Rx sent in. Due for his thyroid/CV recheck. Please set up * Telephone Encounter - Kayden Ogden CMA - 05/17/2025 7:18 AM EDT I got pt scheduled for Nov- She is currently in a cast up to her knee. She is not very mobile at this time. * Telephone Encounter - Wojciech Treviño DO - 05/17/2025 7:18 AM EDT Okay that is fine. documented in this encounterMemorial Health [facility]10-01-2025 Telephone encounter Note* Telephone Encounter - Wojciech Treviño DO - 05/17/2025 7:18 AM EDT Rx sent in. Due for his thyroid/CV recheck. Please set up [facility]10-01-2025 Telephone encounter Note* Telephone Encounter - Kayden Ogden CMA - 05/17/2025 7:18 AM EDT I got pt scheduled for Nov- She is currently in a cast up to her knee. She is not very mobile at this time. [facility]10-01-2025 Telephone encounter Note* Telephone Encounter - Wojciech Treviño DO - 05/17/2025 7:18 AM EDT Okay that is fine. [facility]09-17-2025 NoteNationwide Children'[facility] Hospital09-17-2025 History of Present illness Narrative* Shae Koch LPN - 05/03/2025 11:40 AM EDT PT ASSESSMENT - CASTING ROOM Jesus presents for cast removal. Applied short cast: to Right leg non-weight bearing Patient has been instructed in The patient and/or family member have been instructed in the following: Do not get cast wet, or place/stick anything inside the cast. The patient was instructed to be NWB. Instruction included keeping all pressure off the heel, and to place nothing under the heel. Care of cast.. Shae Koch LPN documented in this encounterBlanchard Valley Health System [facility]09-17-2025 NoteNationwide Children'[facility] Hospital09-17-2025 History of Present illness Narrative* Fercho Prather PA-C - 05/03/2025 8:30 AM EDT POD #30 Surgery: Right subtalar joint fusion; Right talonavicular joint fusion; Multiple midfoot fusion (first and second tarsometatarsal joints, medial naviculocuneiform joint) on 04/03/2025 She states that she is over all doing well. She is not having any pain at the time of her visit. Dressings: cast and dry dressing removed. Incision: dry/intact/well-approximated, no redness Sutures: Removed today. Incisions lightly debrided. Cleansed with betadine bath. Covered with steristrips. Placed into short leg cast. 0 pain: 10 Calf assessment: soft, non-tender, no complaints of pain Follow up and plan: Remain non-weightbearing until 10 weeks post op. Follow up at [address] Hall. X-ray prior. documented in this encounterBlanchard Valley Health System [facility]09-10-2025 Telephone encounter Note * Telephone Encounter - Bang Spears RN - 04/26/2025 1:09 PM EDT Please review Phone encounter 04/26/2025. Bang Spears RN [facility]09-10-2025 Miscellaneous Notes* Telephone Encounter - Bang Spears RN - 04/26/2025 1:09 PM EDT Please review Phone encounter 04/26/2025. Bang Spears RN documented in this encounterBlanchard Valley Health System [facility]09-10-2025 Telephone encounter Note * Telephone Encounter - Bang Spears RN - 04/26/2025 12:03 PM EDT Spoke to the patient. Pt c/o I have stomach cramp and diarrhea, and I'm very weak. I have a small headache Given her hx of UC and she was given antibiotics for foot surgery recently PCP ordered C diff, which was negative Pt states, I feel like I have food poisoning Pt had Taco Mcallister 04/23/25 Pt was having multiple stools. Yesterday she had 8 Today she has only had 1 so far. Able to keep liquids down but food upsets her stomach. I agreed that she likely has food poisoning and the fact her stools have slowed down is good. Encouraged fluids to help hydrate and hopefully help with headache. Ok for Tylenol Advised to call back in 2 days if the symptoms don't get better. Pt verbalized understanding. Bang Spears RN [facility]09-10-2025 Miscellaneous Notes* Telephone Encounter - Bang Spears RN - 04/26/2025 12:03 PM EDT Spoke to the patient. Pt c/o I have stomach cramp and diarrhea, and I'm very weak. I have a small headache Given her hx of UC and she was given antibiotics for foot surgery recently PCP ordered C diff, which was negative Pt states, I feel like I have food poisoning Pt had Taco Mcallister 04/23/25 Pt was having multiple stools. Yesterday she had 8 Today she has only had 1 so far. Able to keep liquids down but food upsets her stomach. I agreed that she likely has food poisoning and the fact her stools have slowed down is good. Encouraged fluids to help hydrate and hopefully help with headache. Ok for Tylenol Advised to call back in 2 days if the symptoms don't get better. Pt verbalized understanding. Bang Spears RN * Telephone Encounter - Elizabeth Doyle - 04/26/2025 10:25 AM EDT Patient had Taco Mcallister and since then she's been having diarrhea, stomach cramping, headache. Her PCP ordered C-diff test. It was negative. Patient asking what she can do? Patient requesting call back from Bagn to discuss. documented in this encounterBlanchard Valley Health System [facility]09-10-2025 Telephone encounter Note * Telephone Encounter - Elizabeth Doyle - 04/26/2025 10:25 AM EDT Patient had Taco Mcallister and since then she's been having diarrhea, stomach cramping, headache. Her PCP ordered C-diff test. It was negative. Patient asking what she can do? Patient requesting call back from Bang to discuss. [facility]09-02-2025 Telephone encounter Note* Telephone Encounter - Doreen Ashby RN - 04/18/2025 1:40 PM EDT I left a message for Jesus just now to help schedule a one week wound check appointment with either JOSEPH Chiu at [place] on 04/[address] Hall at [place] on 04/24 (afternoon add-on). Fercho had one late afternoon slot left on 04/25. I will wait for her call. Doreen Ashby RN [facility]09-02-2025 Miscellaneous Notes* Telephone Encounter - Doreen Ashby RN - 04/18/2025 1:40 PM EDT I left a message for Jesus just now to help schedule a one week wound check appointment with either JOSEPH Chiu at [place] on 04/[address] Hall at [place] on 04/24 (afternoon add-on). Fercho had one late afternoon slot left on 04/25. I will wait for her call. Doreen Ashby RN documented in this encounterBlanchard Valley Health System [facility]09-02-2025 NoteHNO ID: [id number] Author: NICHOLAS ARBOLEDA MA Service: ? Author Type: Cryogenic Transport Driver Type: Progress Notes Filed: 04/18/2025 13:33 Note Text: PT ASSESSMENT - CASTING ROOM [facility] presents for Application of cast. Applied short cast: to Right leg Patient has been instructed in Care of cast.. Nicholas Arboleda [facility]09-02-2025 History of Present illness Narrative * Nicholas Arboleda MA - 04/18/2025 1:31 PM EDT PT ASSESSMENT - CASTING ROOM [facility] presents for Application of cast. Applied short cast: to Right leg Patient has been instructed in Care of cast.. Nciholas Arboleda MA documented in this encounterBlanchard Valley [facility]09-[facility]25 NoteHNO ID: [id number] Author: FERCHO PRATHER PA-C Service: ? Author Type: Physician Aluminum Polisher Type: Progress Notes Filed: 04/18/2025 12:49 Note [...] weeks. Follow-up: 1-2 weeks for wound check. JOSEPH [facility]09-02-2025 History of Present illness Narrative* Fercho Prather PA-C - 04/18/2025 11:21 AM EDT POD #15 Surgery: Right subtalar joint fusion; [...] check. Fercho Prather PA-C documented in this encounterBlanchard Valley Health System [facility]08-19-2025 NoteHNO ID: [id number] Author: MAKENZIE BRAY LISW Service: Care Management Author Type: Stave Block Roller Type: Care Mgt Progress Note Filed: 04/04/2025 [...] Wolf DATE: April 04, 2025 TIME: 4:05 [facility]08-19-2025 NoteHNO ID: [id number] Author: TAMIKO AUGUSTIN RN Service: Care Management [...] the process utilized to ensure compliance with [facility] policy regarding Inpatient Admission and Observation Services. [...] treating physician's order as documented evidence of concurrence.[facility] [id number] NoteHNO ID: [id number] Author: ESPINOZA ROME MD Service: General Internal [...] 500 mg ORAL q 4 H PRN ymqcxyo-yodlyjrzh-rqlcqtv D3 500 mg-5 mcg (200 unit) 1 [...] 04/04/2025 Neut% 64.2 11/16/2024 Lymph% 20.2 11/16/2024 Wagoner% 11.6 11/16/2024 Eosin% 3.0 11/16/2024 Baso% 0.7 11/16/2024 Abs Neut (ANC) 4.65 11/16/2024 Abs Wagoner 0.84 11/16/2024 Abs Eosin 0.22 11/16/2024 Abs [...] 0859 04/03/25 1530 vte current anticoag therapy (ny,sd) 04/03/25 1530 pneumatic compression sleeve(s) ([place]) 04/03/25 1530 ac (more content not included)...[facility] [id number] Note HNO ID: [id number] Author: AAMIR GUZMAN DO Service: Orthopaedic Surgery [...] 77 78 77 79 Resp: 16 16 17 18 Temp: 36.4 ?C (97.5 ?F) 36.7 [...] and Airways Line Duration Peripheral 04/03/25 0738 [facility] Short Right Antecubital 20 Gauge 1 day Aamir Guzman DO Orthopaedic Surgery PGY-3 For [facility] floor related issues or questions, [place] [phone] If unable to reach the PA team between 6 am and 5 pm, please page me at [phone] At all other times, or if urgent, please page the orthopaedic on-call resident at: [phone]) for [facility] patients [phone] for [facility] patients [phone] for [facility] patients [phone] for [facility] patients [address] for [facility] patientsBlanchard Valley Health System [facility] Valley [id number] NoteHNO ID: [id number] Author: IVANIA FINCH, JITENDRA Service: Care Management Author Type: Registered Nurse Type: Care Mgt Initial Assessment Filed: 04/03/2025 15:30 Note Text: CARE MANAGEMENT: ASSESSMENT AND DISCHARGE PLAN SERVICE DATE: April 03, 2025 SERVICE TIME: 3:28 pm PCP: Wojciech Treviño MD, DO Primary Contact: Extended Emergency Contact Information Primary Emergency Contact: Nickolas Wolf Address: [address] [place] [address] [facility] Mobile Relation: Spouse Secondary Emergency Contact: Lesia Gonzalez Address: [address] [facility] Mobile Relation: Daughter Admission Status: Inpatient Insurance Provider: MEDICARE A AND B Discharge Planning requested by: Per Department Practice Potential Transition Plans Home Advance Directives Current Advance Directive: None Assistant Case Manager Attempted to Assist with AD Completion: Yes [...] General wellness, Be able to go home [place] of Choice Explained: [place] of Choice Given: No Reason Not Given: [...] Wolf DATE: April 03, 2025 TIME: 3:26 [facility]08-18-2025 NoteHNO ID: [id number] Author: RAMESH OGDEN AA Service: ? Author Type: Copy Director Type: Anesthesia Procedure Notes Filed: 04/03/2025 09:40 [...] Successful intubation technique: video laryngoscopy Devices used: Ultius Endotracheal tube insertion site: oral Blade size: [...] April 03, 2025 TIME: 9:39 AM CSN: [id number] [id number] NoteHNO ID: [id number] Author: SURENDRA MONTEMAYOR MD Service: Anesthesiology Author [...] April 03, 2025 TIME: 9:08 AM CSN: [id number] NoteHNO ID: [id number] Author: SURENDRA MONTEMAYOR MD Service: Anesthesiology Author [...] April 03, 2025 TIME: 9:05 AM CSN: [id number] NoteNationwide Children'S Hospital08-04-2025 Telephone encounter Note* Telephone Encounter - Yesy Grace RN - 03/20/2025 3:02 PM EDT Please do not send messages back to this triage nurse. Please route to your appropriate assigned pool for [facility]. [facility]08-04-2025 Miscellaneous Notes* Telephone Encounter - Yesy Grace RN - 03/20/2025 3:02 PM EDT Please do not send messages back to this triage nurse. Please route to your appropriate assigned pool for [facility]. * Telephone Encounter - Yesy Grace RN - 03/20/2025 9:51 AM EDT Pt is identified by name and birthdate: [...] Region Right General Foot documented in this encounterBlanchard Valley Health System [facility]08-04-2025 Telephone encounter Note * Telephone Encounter - Yesy Grace RN - 03/20/2025 9:51 AM EDT Pt is identified by name and birthdate: [...] Laterality Anesthesia Op Region Right General Foot [facility]08-04-2025 Instructions* Patient Instructions* Quan, Beverly, RIGGING MAN.GUIDE EXCURSION - 03/20/2025 9:01 AM EDT PATIENT PREOPERATIVE INSTRUCTIONS Aiden Hall has scheduled you for your procedure at this surgery center: [facility]: [phone] --[address] [place] [address]. On your scheduled day of surgery, please [...] office. If you are currently using a zqke-rjm-hcpq injectable or oral medication for diabetes or weight loss such as Dulaglutide (Trulicity), Exenatide (Byetta, Bydureon), Liraglutide (Victoza, Saxenda), Semaglutide (Ozempic, Wegovy, Rybelsus), or Tirzepatide (Mounjaro), the medicine should be stopped at least 7 days before surgery. These medicines can cause food to remain in your stomach for a very longtime and increase the risks from surgery and [...] Procedures: - YOU MUST HAVE A RESPONSIBLE STORAGE SPECIALIST TAKE YOU HOME. A CLINICAL VETERINARIAN OR SLATE SPLITTER CANNOT BE MADE A RESPONSIBLE STORAGE SPECIALIST. - We recommend that a responsible [...] Advance Directive, please fax a copy to [phone] or email to for it to be [...] your chart that day. documented in this encounterBlanchard Valley Health System [facility]08-04-2025 History and physical note * Beverly Glass APRN.CNP - 03/20/2025 9:00 AM EDT HISTORY AND PHYSICAL EXAMINATION SERVICE DATE: 03/20/2025 [...] OTHER QUAL PROF TIME,SEPARATE PROCEDURE at the requestof Dr. Aiden Hall for consultation. My final [...] radiofrequency ablation with pulmonary vein isolation at [facility] that was done 3 times started in [...] resume once hemostasis obtained. Abisai Barraza MSN, RIGGING MAN-GUIDE EXCURSION, PMHNP-BC (Our [facility] office later clarified that [...] limited most or all of the time (usesscooter, mobility device). STOP-Bang Score: Has or is being treated for high blood pressure BMI greater than 35 kg/m^2 Patient over 50 years old Denies snoring loudly Denies feeling tired, fatigued, or sleepy during the daytime Has not been observed to stop breathing or choking/gasping during sleep Does not have a large neck Non-male patient STOP-Bang Score: 3 (MONI does not use CPAP) [id number] Score: Age: 65-74 Sex: female CHF history: Yes Hypertension history: Yes Stroke/TIA/thromboembolism history: No Vascular disease history: No Diabetes history: No [id number] Score: 4 ARISCAT Score: Age: 51-80 Preoperative SpO2: >=96% Preoperative anemia: No Duration of surgery: >3 hrs Emergency procedure: No ARISCAT Score: I - PHYSICAL EVALUATION AIRWAY Patient intubated: No. Tracheostomy tube not present Mallampati: II. TM distance: >3 FB. Neck ROM: full ROM without neurological symptoms. Mouth opening: adequate. Short neck: no. Thick neck: no Robbins present: no Lip Bite Test: II Microretrognathia/Micronagthia/Recessed Chin: No DENTAL Dental findings: teeth intact. [...] fevers. 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 [...] drinks per day. : membranous glomerulonephritis, CKD APPLICATIONS SYSTEM ANALYST: Negative for abnormal vaginal bleeding, abnormal [...] TUNNEL RIGHT WRIST surgical correction COLONOSCOPY 05/10/2019 [facility] COLONOSCOPY GEN ANES 07/23/2020 Dr. Frances/Diverticulosis/Hemorrhoids/ Ulcerative Colitis/Rpt in 2 yrs. COLONOSCOPY SCREENING 03/2023 EGD EUS 01/11/2020 [facility] LASIK Right prior to [...] every 4 hours as needed for pain. ypxjkjl-ucdomxkyz-ymahcwf D3 500 mg-5 mcg (200 unit) per tablet Take 1 tablet by mouth three times daily. MV with Fcb-Hccpzzro-Eszfbf (CENTRUM SILVER) 0.4 mg-300 mcg- 250 mcg [...] Jesus Wolf DATE: 03/20/2025 TIME: 9:38 AM [facility]08-04-2025 History and physical note* Beverly Glass APRN.JOHNATHAN - 03/20/2025 9:00 AM EDT HISTORY AND PHYSICAL EXAMINATION SERVICE DATE: 03/20/2025 [...] OTHER QUAL PROF TIME,SEPARATE PROCEDURE at the requestof Dr. Aiden Hall for consultation. My final [...] radiofrequency ablation with pulmonary vein isolation at [facility] that was done 3 times started in [...] resume once hemostasis obtained. Abisai Barraza MSN, RIGGING MAN-GUIDE EXCURSION, PMHNP-BC (Our [facility] office later clarified that [...] limited most or all of the time (usesscooter, mobility device). STOP-Bang Score: Has or is being treated for high blood pressure BMI greater than 35 kg/m^2 Patient over 50 years old Denies snoring loudly Denies feeling tired, fatigued, or sleepy during the daytime Has not been observed to stop breathing or choking/gasping during sleep Does not have a large neck Non-male patient STOP-Bang Score: 3 (MONI does not use CPAP) [id number] Score: Age: 65-74 Sex: female CHF history: Yes Hypertension history: Yes Stroke/TIA/thromboembolism history: No Vascular disease history: No Diabetes history: No [id number] Score: 4 ARISCAT Score: Age: 51-80 Preoperative SpO2: >=96% Preoperative anemia: No Duration of surgery: >3 hrs Emergency procedure: No ARISCAT Score: I - PHYSICAL EVALUATION AIRWAY Patient intubated: No. Tracheostomy tube not present Mallampati: II. TM distance: >3 FB. Neck ROM: full ROM without neurological symptoms. Mouth opening: adequate. Short neck: no. Thick neck: no Robbins present: no Lip Bite Test: II Microretrognathia/Micronagthia/Recessed Chin: No DENTAL Dental findings: teeth intact. [...] fevers. 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 [...] drinks per day. : membranous glomerulonephritis, CKD APPLICATIONS SYSTEM ANALYST: Negative for abnormal vaginal bleeding, abnormal [...] TUNNEL RIGHT WRIST surgical correction COLONOSCOPY 05/10/2019 [facility] COLONOSCOPY GEN ANES 07/23/2020 Dr. Frances/Diverticulosis/Hemorrhoids/ Ulcerative Colitis/Rpt in 2 yrs. COLONOSCOPY SCREENING 03/2023 EGD EUS 01/11/2020 [facility] LASIK Right prior to [...] Prior to Admission medications as of 03/10/25 0981 Medication Sig Last Dose Taking alendronate (FOSAMAX) [...] every 4 hours as needed for pain. jzmrzpb-xnhvoyhxd-tcockqj D3 500 mg-5 mcg (200 unit) per tablet Take 1 tablet by mouth three times daily. MV with Mzw-Bhhjnvfj-Yprrdr (CENTRUM SILVER) 0.4 mg-300 mcg- 250 mcg [...] 03/20/2025 TIME: 9:38 AM documented in this encounterBlanchard Valley Health System [facility]07-25-2025 NoteNationwide Children'S Hospital07-25-2025 History of Present illness Narrative* Mary Childress MD - 03/10/2025 9:31 AM EDTAssociated Order(s): Large Joint Arthro/Inj: L knee joint Post-Procedure Diagnose(s): Primary osteoarthritis of left knee This document has been created with the use of voice recognition technology, including [employer] Scribe technology. It may contain inaccuracies: misspellings, inaccurate syntax or word sense that escaped review. CHIEF COMPLAINT: Jesus Wolf is a 70 year old female who presents today for follow up of left knee. HISTORY OF PRESENT ILLNESS: PAIN EVALUATION 03/03/2025 1044 Pain Level: 8 Pain Location: Knee-Left Description: Stabbing Duration Units: Months Frequency: Continuous Intervention/Comfort measure: Medication;Reposition;Relaxation;Positioning HISTORY: Jesus Wolf is a 70-year-old female presenting with recurrent left knee pain. Jesus reports a recurrence of left knee pain, similar to previous episodes, with pain localized tothe anterior and medial aspects of the knee. The pain had subsided for approximately 2.5 months buthas recently intensified, particularly with ambulation. She denies [...] these instructions. Informed Consent Consent Obtained: Written [place] Protocol A moment to CARE was completed. [...] aspects of the left knee, consistent with areasof known osteoarthritic changes. No new injuries reported. [...] evaluation on this patient. I have examined thepatient and reviewed radiographic studies and agree with plan as outlined above. I performed a substantial part of today's visit and MDM. Patient with severe left knee osteoarthritis. She has upcoming foot surgery and we we injected her knee with cortisone today. She understands intervals of 10 injections. Will follow-up as needed Mary Childress MD March 10, 2025 9:45 AM documented in this encounterBlanchard Valley Health System [facility]07-18-2025 Telephone encounter Note * Telephone Encounter - Doreen Barraza LPN - 03/03/2025 1:43 PM EDT Abisai Barraza SUPERVISOR ELEMENTARY EDUCATION called stating ok to Stop Eliquis 3 days prior to procedure. Message received by Leelee MATA on 03-03-25 @ 1:25. Stated they will send a fax with written instructions. [facility]07-18-2025 Miscellaneous Notes* Telephone Encounter - Doreen Barraza LPN - 03/03/2025 1:43 PM EDT Abisai Barraza SUPERVISOR ELEMENTARY EDUCATION called stating ok to Stop Eliquis 3 days prior to procedure. Message received by Leelee Arguelles PSR on 03-03-25 @ 1:25. Stated they will send a fax with written instructions. * Telephone Encounter - Graciela Munson RN - 03/02/2025 3:11 PM EDT Refaxed letter to Jinny Barraza RIGGING MAN GUIDE EXCURSION. Danika Munson RN [facility] Resource Nurse * Telephone Encounter - Graciela Munson RN - 02/27/2025 2:16 PM EDT Faxed letter to Abisai Barraza requesting 3 day hold of Eliquis. Danika Munson RN [facility] Resource Nurse * Telephone Encounter - Graciela Munson RN - 02/27/2025 2:15 PM EDT Images from the original note were not included. Elissa Harden, ANTONIO.GUIDE EXCURSION You3 days ago [facility] They do list a block under the surgical req, I would hold the 3 days per our guidelines. Thank you * Telephone Encounter - Graciela Munson RN - 02/24/2025 2:58 PM EDT Praveen Bowers Cardiology documented in 01/27/25 CE- [...] resume once hemostasis obtained. Abisai Barraza MSN, RIGGING MAN-GUIDE EXCURSION, PMHNP-[facility] [place], [place] * Telephone Encounter - Graciela Munson RN - 02/24/2025 2:58 PM EDT Images from the original note were not included. Elissa Harden APRN.GUIDE EXCURSION You6 hours ago (8:16 AM) [facility] Should be fine to hold the 3 days prior. * Telephone Encounter - Graciela Munson RN - 02/21/2025 1:45 PM EDT Sarah Bethlo, Patient is scheduled for PROCEDURE [...] RN PACC Resource Nurse documented in this encounterBlanchard Valley Health System [facility]07-17-2025 Telephone encounter Note * Telephone Encounter - Graciela Munson RN - 03/02/2025 3:11 PM EDT Refaxed letter to Jinny Barraza APRN GUIDE EXCURSION. Danika Munson RN PACC Resource Nurse [facility]07-14-2025 Telephone encounter Note* Telephone Encounter - Graciela Munson RN - 02/27/2025 2:16 PM EDT Faxed letter to Abisai Barraza requesting 3 day hold of Eliquis. Danika Munson RN PACC Resource Nurse [facility]07-14-2025 Telephone encounter Note* Telephone Encounter - Graciela Munson RN - 02/27/2025 2:15 PM EDT Images from the original note were not included. Elissa Harden, ANTONIO.JOHNATHAN You3 days ago CH They do list a block under the surgical req, I would hold the 3 days per our guidelines. Thank you [facility]07-11-2025 Telephone encounter Note* Telephone Encounter - Graciela Munson RN - 02/24/2025 2:58 PM EDT Praveen Bowers, Cardiology documented in 01/27/25 CE- encounter for [...] resume once hemostasis obtained. Abisai Barraza MSN, RIGGING MAN-GUIDE EXCURSION, PMHNP-[facility] [place], [place] [facility]07-11-2025 Telephone encounter Note* Telephone Encounter - Graciela Munson RN - 02/24/2025 2:58 PM EDT Images from the original note were not included. Elissa Harden, ANTONIO.GUIDE EXCURSION You6 hours ago (8:16 AM) [facility] Should be fine to hold the 3 days prior. [facility]07-08-2025 Telephone encounter Note* Telephone Encounter - Graciela Munson RN - 02/21/2025 1:45 PM EDT Hello, Patient is scheduled for PROCEDURE : ARTHRODESIS MIDTARSAL MULTIPLE/TRANSVERSE - Right Cardiology documented ok for 48 hour hold of Eliquis prior to procedure. Please advise if patient needs 3 day hold of Eliquis for this procedure and if I might reach back out to cardiology for longer hold or surgeon for shorter hold? Thank you, Danika Munson RN PACC Resource Nurse [facility]07-08-2025 Telephone encounter Note* Telephone Encounter - Lizeth Flores RN - 02/21/2025 12:58 PM EDT Images from the original note were not included. Most recent Rheumatology visit: 11/16/2024 (with Nadege Murphy) Last Bone Density on file: 03/15/2024 Rheumatology Care Team: None on file Recent Office Visits - This Specialty 11/16/2024 Systemic lupus erythematosus, unspecified SLE type, unspecified organ involvement status(HCC) Rheumatology Nadege Murphy DO 05/18/2024 Systemic lupus erythematosus, unspecified SLE type, unspecified organ involvement status(HCC) Rheumatology Nadege Murphy DO 03/15/2024 Osteopenia of multiple sites [facility] Obdulia Ann PA-C Upcoming Rheumatology Appointments - Next 365 Days Visit Type Date Time Department [facility] Last Ophthalmology Check for Plaquenil [...] Open Future (Single Instance) Lab Orders None [facility]07-08-2025 Miscellaneous Notes* Telephone Encounter - Lizeth Flores RN - 02/21/2025 12:58 PM EDT Images from the original note were not included. Most recent Rheumatology visit: 11/16/2024 (with Nadege Murphy) Last Bone Density on file: 03/15/2024 Rheumatology Care Team: None on file Recent Office Visits - This Specialty 11/16/2024 Systemic lupus erythematosus, unspecified SLE type, unspecified organ involvement status(HCC) Rheumatology Nadege Murphy DO 05/18/2024 Systemic lupus erythematosus, unspecified SLE type, unspecified organ involvement status(HCC) Rheumatology Nadege Murphy DO 03/15/2024 Osteopenia of multiple sites [facility] Obdulia Ann PA-C Upcoming Rheumatology Appointments - Next 365 Days Visit Type Date Time Department [facility] 05/24/2025 9:00 AM [facility] MAIN A50 Last [...] Instance) Lab Orders None documented in this encounterBlanchard Valley Health System [facility]07-07-2025 NoteNationwide Children'S Hospital07-07-2025 History of Present illness Narrative* Graciela Munson RN - 02/20/2025 8:47 AM EDT RN Pre Visit Questionnaire for upcoming [facility] appointment PROCEDURE : ARTHRODESIS MIDTARSAL MULTIPLE/TRANSVERSE - Right SURGEON : Dr. Aiden Hall PROCEDURE DATE : 04/03/25 [facility] APPT : 03/20/25 Prepared for surgery: Anticoagulant recommendations received: Yes RN Pre Visit Questionnaire completed by [facility] chart review and I spoke with this patient. Cardiac Optimization: Per Dr. Abisai Barraza APRN GUIDE EXCURSION, found in [facility] office visit on 01/27/25. Do you see a construction equipment overhauler, title one reading teacher, composition roofer or other specialist within or outside of [facility]? SPECIALISTS: CARDIOLOGY: [facility]- Abisai Barraza MSN, RIGGING MAN-GUIDE EXCURSION, PMHNP-BC last visit 01/27/25 ENT: Office Visit [...] TIA or thromboembolism (2) Vascular disease (prior RI, PAD, or aortic plaque) (1) Age 65-74 years (1) Sex (1) Anticoagulation recommendations : Found in CE- TE on 03/03/25 Stents: No Letter or Telephone encounter sent : Yes Provider : Dr Abisai Barraza RIGGING MAN GUIDE EXCURSION See 718 TE care everywhere: Message from Abisai Barraza sent at 03/02/2025 11:44 AM EDT ----- Ok to interrupt DOAC for 3 days as requested Implanted Devices: WatchGrokr DIAGNOSTIC TEST REVIEW: View External Cardiology - Cardiac Cath [ID [id number]] EKG: View EKG Wave Form [ID [id number]] ECHO (09/23/2021 8:46 AM) CT watchman full contrast (08/15/2024 12:48 PM) Any new changes in your symptoms since you last saw your specialist? No Are you a Pre Diabetic/Diabetic/Weight loss/CHF medications No Dialysis No Skilled Facility Resident: no Any recent hospitalizations within [facility] or outside facilities in the past 3 months No Please have an up-to-date list of medications in preparation for your [facility] visit. Instructions Given to Patient: Patient given verbal preop instructions and voices comprehension and compliance. SIGNATURE: Graciela Munson RN PATIENT NAME: Jesus Wolf DATE: February 20, 2025 TIME: 8:48 AM PAGER/CONTACT PHONE: documented in this encounterBlanchard Valley Health System [facility]07-03-2025 Telephone encounter Note * Telephone Encounter - Doreen Ashby RN - 02/16/2025 3:36 PM EDT . [facility]07-03-2025 Miscellaneous Notes* Telephone Encounter - Doreen Ashby RN - 02/16/2025 3:36 PM EDT . documented in this encounterBlanchard Valley Health System [facility]06-20-2025 Telephone encounter Note * Telephone Encounter - Micki Valadez - 02/03/2025 2:46 PM EDT Aerosol Supervisor called patient and LVTCB regarding surgery with . Advised patient to call back at [phone] to discuss surgery date and following appts. [facility]06-20-2025 Miscellaneous Notes* Telephone Encounter - Micki Valadez - 02/03/2025 2:46 PM EDT Aerosol Supervisor called patient and LVTCB regarding surgery with . Advised patient to call back at [phone] to discuss surgery date and following appts. * Telephone Encounter - Micki Valadez - 02/03/2025 2:45 PM EDT ----- Message from Aiden Hall MD sent [...] supine Tourniquet: thigh tourniquet Instruments: mini C-arm, [place] joint prep kit, lara-legenbeck retractors, large power, small Nava Awan bone graft harvester Implants: [place] WMT/[place] EasyFuse jerry, Yajaira small frag solid/cannulated screws Time needed: 3 hours CPT: 52969, 48906, 06171, 61700, [id number] documented in this encounterBlanchard Valley Health System [facility]06-20-2025 Telephone encounter Note * Telephone Encounter - Micki Valadez - 02/03/2025 2:45 PM EDT ----- Message from Aiden Hall MD sent [...] small ToroermannNava bone graft harvester Implants: Yajaira WMT/Yajaira EasyFuse jerry, [place] small frag solid/cannulated screws Time needed: 3 hours CPT: 51216, 45612, 85650, 62891, [id number] [facility]06-18-2025 NoteNationwide Children'S Hospital06-18-2025 History of Present illness Narrative* Narcisa Velazquez, PT - 02/01/2025 3:19 PM EDT Images from the original note were not included. Episode Visit Count: 1 Start of Care Date: 02/01/25 Plan of Care Certification Date: 02/01/25 Next Certification Due Date: 02/01/25 Patient Identified by Name and Date of : Yes REHABILITATION AND SPORTS THERAPY PHYSICAL THERAPY EVALUATION PLAN OF CARE: Assessment: Jesus Wolf presents with diagnosis of pre-op rt foot surgery that interferes withrising from a chair, standing, walking, walking in [...] electric scooter. Discussed adaptions needed for home andpotential barriers. Pt plans to f/u closer to home following surgery. The patient will benefit fromskilled therapy services to meet the goals established for this plan of care as noted below. Anticipated ability to follow post-op precautions: With caregiver assistance in their current home environment Goals for Episode of Care: established 02/01/25 vocalize understanding of protocol-met Planned Interventions, Frequency, and Duration: Current Frequency: 1 visit Duration: 1 visit Total Number of Visits Planned: 1 Planned Treatment Interventions: Therapeutic exercise (55118), Neuromuscular re- education (01231), Therapeutic activities (60584), Self-fdc management (06661), Gait Training (74617) PLAN FOR NEXT VISIT: pt will f/u [...] To: Patient, Family TREATMENT: PT Treatment Interventions: Self-Skilled Nursing Management Evaluation Evaluation Self-Skilled Nursing Management: 1: ed for seat adaptions to [...] : 314 Session Stop Time : 400 Narcisa Velazquez PT DPT documented in this encounterBlanchard Valley [facility]06-[facility]-2025 NoteNationwide Children'S Hospital06-18-2025 History of Present illness Narrative* Aiden Hall MD - 02/01/2025 1:54 PM EDT [facility] - Follow-Up Visit [...] TMT joint fusion, third TMT joint fusion, TALversus gastrocnemius recession -Continue DJO boot to R LE until surgery -DVT prophylaxis w/ Eliquis postop (chronic anticoagulation for Afib) -Schedule surgery at [facility], will plan to stay overnight -NW 8-10 weeks post op We discussed the [...] nerves, nerve pain, wound healing problems, nonunion, malunion,hardware failure, blood clots, and incomplete relief of [...] MD Medical Decision Making documented in this encounterBlanchard Valley [facility]06[facility] History of Present illness Narrative* Deb Mcgovern RT(R) - 02/01/2025 7:00 AM EDT Radiology Service Progress Note PATIENT NAME: Jesus [...] Assigned female at . status: : No status:NO. PATIENT RELEVANT IMPLANT DATA REVIEWED: Not Applicable PATIENT PRESENTS WITH AN IMPLANTABLE OR ATTACHED HAND MODEL: No RADIOLOGY DEPARTMENT: CT; Exam(s) Completed: Lower extremity PERIPHERAL IV DATA: Not applicable SIGNED BY: RT Rowan(R) February 01, 2025 7:10 AM documented in this encounterBlanchard Valley Health System [facility]06-[facility]-2025 NoteHNO ID: [id number] Author: DEB MCGOVERN RT(Sandra) Service: Radiology Author Type: Correction Officer Type: Progress Notes Filed: 02/01/2025 07:10 Note [...] PATIENT PRESENTS WITH AN IMPLANTABLE OR ATTACHED HAND MODEL: No RADIOLOGY DEPARTMENT: CT; Exam(s) Completed: Lower extremity PERIPHERAL IV DATA: Not applicable SIGNED BY: RT Rowan(R) February 01, 2025 7:10 AMThe Orthopedic Specialty [id number] Telephone encounter Note* Telephone Encounter - Ana Paula Dykes - 01/30/2025 12:14 PM EDT She called noting she had spoken to [facility] and she had gotten scheduled there for PT; per recommendation of referring provider. [id number] Miscellaneous Notes* Telephone Encounter - Ana Paula Dykes - 01/30/2025 12:14 PM EDT She called noting she had spoken to [facility] and she had gotten scheduled there for PT; per recommendation of referring provider. documented in this encounterUniversity Health Lakewood Medical [id number] History of Present illness Narrative* Abisai Barraza APRN-JOHNATHAN - 01/27/2025 8:30 AM EDT Chief Complaint I need to have surgery on my foot Patient presents to the office in wheelchair due to limited mobility. Last evaluated in clinic Dr. Conway November 2024. She denies any hospitalizations or significant changes to interval medical history since last cardiovascular examination. Reason for Visit Patient presents to [facility] [place] to obtain cardiac risk stratification prior to [...] Major clinical markers: -Acute coronary syndrome or RI within 30 days: No -Decompensated heart failure: No -Significant arrhythmia: No -Severe valvular heart disease: No 2. Intermediate clinical markers -History of ischemic heart disease (prior RI, current chest pain secondary to ischemia, use [...] 0.4% mace Concomitant medication review: Mar 2024 LUE DVT (no details available) at this time [...] resume once hemostasis obtained. Abisai Barraza MSN, RIGGING MAN-GUIDE EXCURSION, PMHNP-[facility] [place], [place] Please excuse any errors in grammar or translation related to this dictation. Voice recognition software was utilized to prepare this document. documented in this [facility] Work Phone: 1(646) 408-703306-13-2025 Instructions* Patient Instructions* BRENT Franco - 01/27/2025 8:30 AM EDT [...] making process incorporating patients unique circumstances, the followingtreatment plan will be initiated: 1. Prescription drug management of cardiovascular medication for efficacy, adherence to treatment, side effect assessment and polypharmacy. Current treatment clinically warranted and to continue without modifications. 2. Return for follow-up; in the interim, contact the office if new symptoms arise. Dr. Conway as scheduled documented in this encounterSelect [facility] Work Phone: 1(974) 641-316606-12-2025 Telephone encounter Note* Telephone Encounter - Doreen Ashby RN - 01/26/2025 6:29 PM EDT Order was faxed per her request. Doreen Ashby RN [facility]06-12-2025 Miscellaneous Notes* Telephone Encounter - Doreen Ashby RN - 01/26/2025 6:29 PM EDT Order was faxed per her request. Doreen Ashby RN * Telephone Encounter - Curtis Lara - 01/26/2025 4:57 PM EDT Jesus is calling Aiden Hall MD today with concern regarding Patient Update. Patient is having her pre surgery therapy at [facility] in [facility]. She needs the order for PT to be faxed to them at [phone] and phone is [phone]. Patient has been identified by name and birthdate. Person calling: self Call patient at: on cell [phone] (home) [phone] (cell) Was an appointment scheduled: No Closing statement: Results or non-symptom based questions: Thank you for calling [facility], your call will be returned within the next business day. Curtis Lara documented in this encounterBlanchard Valley Health System [facility]06-12-2025 Telephone encounter Note * Telephone Encounter - Curtis Lara - 01/26/2025 4:57 PM EDT Jesus is calling Aiden Hall MD today with concern regarding Patient Update. Patient is having her pre surgery therapy at [facility] in [facility]. She needs the order for PT to be faxed to them at [phone] and phone is [phone]. Patient has been identified by name and birthdate. Person calling: self Call patient at: on cell [phone] (home) [phone] (cell) Was an appointment scheduled: No Closing statement: Results or non-symptom based questions: Thank you for calling [facility], your call will be returned within the next business day. Curtis Lara [facility]06-12-2025 History of Present illness Narrative* Coco Guzman RN - 01/26/2025 8:57 AM EDT Since your last infusion, have [...] or open sores? No documented in this encounterBlanchard Valley Health System [facility]06-12-2025 NoteNationwide Children'S Hospital06-11-2025 Instructions* Patient Instructions* Curtis Ogden APRN.GUIDE EXCURSION - 01/25/2025 10:18 AM EDT We discussed your recent nosebleeds and nasal care: - Continue using the ointment you have three times a day for the next two weeks. It is safe to use for this duration. - I have prescribed Doxycycline (antibiotic) to treat a mild secondary infection in your nose. Takethis twice daily for 10 days. Avoid taking [...] specialist as a precaution. You can see eitherDr. Delfino Harmon (who comes to this office) or Dr. Zhao Dejesus (in [facility]). Schedule the appointment for at least two weeks from now to allow time for the antibiotics to work. If your symptoms resolve completely, you can cancel the appointment. - If you are hospitalized for your upcoming foot surgery and experience significant nosebleeds, inform the hospital team. They should avoid placing any tubes in your left nostril, as this is the sidewith recent bleeding. We discussed your upcoming foot surgery: - Continue working with your construction equipment overhauler and health care administrator to complete the necessary pre-surgicalevaluations. - Let me know if you have any concerns about your immune system or healing process as you prepare for surgery. Please continue monitoring your symptoms and follow the care plan outlined above. If you have any questions or concerns, feel free to reach out. documented in this encounterBlanchard Valley Health System [facility]06-11-2025 NoteNationwide Children'S Hospital06-11-2025 History of Present illness Narrative* Curtis Ogden APRN.CNP - 01/25/2025 9:02 AM EDT Recording using [employer] software for draft documentation of the visit was discussed with the patient/authorized hardware supplies sales representative; all questions welcomed and answered. Patient/authorized hardware supplies sales representative agreed to proceed Ms. Wolf is [...] 0850 to reassess and ensure resolution. 2. prison (current) use of anticoagulants (Z79.01) Patient is [...] ointment as previously instructed but discontinued it onMond night due to concerns about exacerbating the bleeding. She denies any bleeding from the right nostril. She has a history of lupus, which has led to complications including Charcot arthropathy, osteonecrosis, and neuropathy. 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 She has a CT scan scheduled for [...] every 4 hours as needed for pain. hkuohyo-fkptcqzfb-htacemp D3 500 mg-5 mcg (200 unit) per tablet Take 1 tablet by mouth three times daily. MV with Aqs-Eaafoqse-Ihrhcr (CENTRUM SILVER) 0.4 mg-300 mcg- 250 mcg [...] alleviate nocturnal congestion. - Referral to Dr. Delfino Harmon or Dr. Willie Wooten for further evaluation if bleeding persists; appointment to be scheduled in 2 weeks to allow for healing. 2. prison (current) use of anticoagulants Patient is on Eliquis with a history of clotting disorders. Anticoagulation therapy complicates management of epistaxis. - Continue Eliquis as prescribed; benefits outweigh risks given clotting history. - Instructed patient to inform surgical team at [facility] to avoid nasal instrumentation on theleft side during upcoming foot surgery. Curtis Ogden APRN.GUIDE EXCURSION documented in this encounterBlanchard Valley Health System [facility]06-10-2025 Telephone encounter Note * Telephone Encounter - Sergo Vila RN - 01/24/2025 9:46 AM EDT Spoke with patient, confirmed Dr. Aiden Hall just needs direction on which medications patient can take perioperatively (HCQ and belimumab infusions - scheduled for 01/26 and 03/23) and surgical clearance. [facility]06-10-2025 Miscellaneous Notes* Telephone Encounter - Sergo Vila RN - 01/24/2025 9:46 AM EDT Spoke with patient, confirmed Dr. Aiden holliday needs direction on which medications patient can take perioperatively (HCQ and belimumab infusions - scheduled for 01/26 and 03/23) and surgical clearance. * Telephone Encounter - Anastasiya Jackman - 01/24/2025 8:51 AM EDT Hi, This pt is scheduled with you on 05/24/25. Can she be added on? documented in this encounterBlanchard Valley Health System [facility]06-10-2025 Telephone encounter Note * Telephone Encounter - Anastasiya Jackman - 01/24/2025 8:51 AM EDT Hi, This pt is scheduled with you on 05/24/25. Can she be added on? 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 Activities: desk job, normal every day activity , non weight bearing currently Smoking: no Personal or Family Hx of DVT/PE: yes, bilateral DVT's , left arm DVT last diagnosed 6 months ago inthe left arm Diabetic: no Last Hgba1c: Hemoglobin [...] deformity present on stance examination with only mildamount of swelling present, no violation of skin, [...] fragment with severe DJD of the midfoot includingat the 2nd and 3rd TMT joints, plantarflexion [...] fracture is a sequelae of Charcot arthropathy giventhat she had no pain for 1 week [...] complete preoperative physical therapy same day at [facility]. Thank you for the opportunity to participate in this patient's care. Aiden Hall MD Medical Decision Making documented in this encounterBlanchard Valley Health System [facility]06-05-2025 NoteIMPRESSION: NAVICULAR FRACTURE WITH PROGRESSIVE FINDINGS SUGGESTIVE OF CHARCOT ARTHROPATHY. Implant Polisher: PSCB Transcribe Date/Time: Jan 19 2025 4:42P Dictated by : MIRTHA KENDRICK MD This examination was interpreted and the report reviewed and electronically signed by: MIRTHA KENDRICK MD on Jan 19 2025 4:45PM [facility] OF [id number] NoteNationwide Children'S Hospital06-05-2025 History of Present illness Narrative* Joan Luigi, DPM - 01/19/2025 1:41 PM EDT SERVICE DATE: January 19, 2025 PCP: Wojciech [...] 21 where x-ray was obtained displaying a closednondisplaced fracture of the navicular. Patient was immobilized [...] TUNNEL RIGHT WRIST surgical correction COLONOSCOPY 05/10/2019 [facility] COLONOSCOPY GEN ANES 07/23/2020 Dr. Frances/Diverticulosis/Hemorrhoids/ Ulcerative Colitis/Rpt in 2 yrs. COLONOSCOPY SCREENING 03/2023 EGD EUS 01/11/2020 [facility] LASIK Right prior to [...] every 4 hours as needed for pain. mgkyhlf-rtjluaiti-lypfxrk D3 500 mg-5 mcg (200 unit) per tablet Take 1 tablet by mouth three times daily. MV with Hoo-Mdbaohqm-Tuyuvm (CENTRUM SILVER) 0.4 mg-300 mcg- 250 mcg [...] from beginning of December appears to show displacementof navicular fracture ASSESSMENT Diagnosis (S92.251G) Closed displaced fracture of navicular bone of right foot with delayed healing, subsequent encounter (primary encounter diagnosis) No orders found for this visit on 01/19/25. PLAN OV, discussed current status, progress, prognosis. Reviewed sequence of x-rays with patient and herhusband, discussed changes, discussed possible concerns including nonunion [...] PM Beverly Franco DPM documented in this encounterBlanchard Valley Health System [facility]06-[facility]-2025 History of Present illness Narrative* Pinky Loya RT(R) - 01/19/2025 1:15 PM EDT Radiology Service Progress Note PATIENT NAME: Jesus [...] Assigned female at . status: : No status:NO. PATIENT RELEVANT IMPLANT DATA REVIEWED: Not Applicable PATIENT PRESENTS WITH AN IMPLANTABLE OR ATTACHED HAND MODEL: No RADIOLOGY DEPARTMENT: General X-ray: Exam(s) Completed: Lower Extremity X- Ray(s): Foot, Right and Wt. Bearing PERIPHERAL IV DATA: Not applicable SIGNED BY: RT Ale(R) January 19, 2025 1:23 PM documented in this encounterBlanchard Valley Health System [facility]06-05-2025 NoteNationwide Children'S Hospital06-04-2025 Instructions* Patient Instructions* Curtis Ogden APRN.GUIDE EXCURSION - 01/18/2025 3:39 PM EDT We discussed [...] help the area heal. Please apply a pea- sized amount to both nostrils 2-3 times daily for 10 days. Use your fingertip to gently spread the ointment inside yournose. Do not use a Q-tip or insert [...] nostril, and apply your nasal clamp for 5- 10 minutes. Do not remove the clamp early. [...] could indicate an infection. Your pharmacy is [facility], and the antibiotic ointment prescription has been sent there. You may receive a text notification when it is ready for pickup. If you experience heavy bleeding that does not stop after following the Afrin and nasal clamp instructions, please go to the ER. If you have any questions or concerns before your follow-up, feel freeto contact our office. documented in this encounterBlanchard Valley Health System [facility]06-04-2025 NoteNationwide Children'S Hospital06-04-2025 History of Present illness Narrative* Curtis Ogden APRN.JOHNATHAN - 01/18/2025 9:03 AM EDT Recording using [employer] software for draft documentation of the visit was discussed with the patient/authorized hardware supplies sales representative; all questions welcomed and answered. Patient/authorized hardware supplies sales representative agreed to proceed Ms. Wolf is [...] every 4 hours as needed for pain. meazisl-vrxdwrrkq-aeeaasl D3 500 mg-5 mcg (200 unit) per tablet Take 1 tablet by mouth three times daily. MV with Tjn-Mujeblne-Ocvgsy (CENTRUM SILVER) 0.4 mg-300 mcg- 250 mcg [...] the inferior turbinate. Septum is straight. There areno polyps. There is no discharge. Oropharynx: Teeth [...] placed against the left anterior septal bleeder. Afteradequate anesthesia was obtained bleeder was cauterized with [...] 0850 to reassess and ensure resolution. 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 - Discussed increased risk of recurrent epistaxis due to anticoagulation therapy. - Emphasized the importance of following epistaxis management instructions to minimize bleeding risks. Curtis Ogden APRN.GUIDE EXCURSION documented in this encounterBlanchard Valley Health System [facility]05-15-2025 History of Present illness Narrative* Wojciech Treviño, DO - 12/29/2024 9:15 AM EDT Subjective Patient ID: Jesus Wolf is a 69 y.o. female. Jesus presents for recheck of multiple problems. She does have a new problem. She has a rash underboth breasts. She has tried benadryl, HCTZ cream medicated powder but it isn't helping.It is itchy.It started 3-4 weeks ago. She went to supervisor component assembler and she was diagnosed with a comminuted navicular fracture and is wearing a boot. Her pushes her around in a wheelchair. She saw the construction equipment overhauler and he recommended she stay on Eliquis even though she has a watchman in place. She occasionally has palpitations. The following portions of the patient's history were reviewed and updated as appropriate: allergies, current medications, past family history, past medical history, past social history, past surgicalhistory, problem list, and medication reconciliation was completed including current medication andpost discharge medication. Review of Systems Constitutional: Positive [...] with routine healing, subsequent encounter follow-up with supervisor component assembler as directed Paroxysmal atrial fibrillation ([facility]) seems to be in sinus rhythm now. Continue Eliquis Obesity, morbid ([facility]) She is obese. She would benefit from [...] 1 Application before bedtime. documented in this encounterMemorial Health System [facility]05-08-2025 NoteNationwide Children'S Hospital05-08-2025 History of Present illness Narrative* Will Greer MD - 12/22/2024 9:58 AM EDT Images from the original note were not included. Pulmonary Consult Patient Name: Jesus Wolf PRIMARY CARE PHYSICIAN: Wojciech Treviño MD, DO REASON FOR CONSULT: Shortness of breath REQUESTING PHYSICIAN: Dione Frances MD My final recommendations will be communicated to the requesting health care provider by way of the shared medical record for internal providers or letter via the [employer] for external providers. ASSESSMENT AND PLAN: [...] and evidence of pulmonary hypertension on her e chocardiogram. I suspect there is also a component [...] and has undergone several ablations for this. Sheis currently on amiodarone for this and has been in rhythm. She tells me she gets quite symptomaticand shortness of breath (even more so) when [...] TUNNEL RIGHT WRIST surgical correction COLONOSCOPY 05/10/2019 [facility] COLONOSCOPY GEN ANES 07/23/2020 Dr. Frances/Diverticulosis/Hemorrhoids/ Ulcerative Colitis/Rpt in 2 yrs. COLONOSCOPY SCREENING 03/2023 EGD EUS 01/11/2020 [facility] LASIK Right prior to 1999 MRI PANC/JEANIE WO/W IVCON 12/20/2019 [facility] PAST SURGICAL HISTORY OF 07/2013 bilateral foot procedure, [place] PAST SURGICAL HISTORY OF Ablation X2 TONSILLECTOMY [...] every 4 hours as needed for pain. akrcfjf-lrdamddou-uovpcsh D3 500 mg-5 mcg (200 unit) per tablet Take 1 tablet by mouth three times daily. MV with Zma-Phrqprpo-Rbcbnk (CENTRUM SILVER) 0.4 mg-300 mcg- 250 mcg [...] disturbance, mood disorder and recent psychosocial stressors HEMATOLOGIC/LYMPHATIC/IMMUNOLOGIC:Negative for cold or heat intolerance, polyuria, polydipsia [...] 3 months (around 03/24/2025). documented in this encounterBlanchard Valley Health System [facility]05-07-2025 NoteNationwide Children'S Hospital05-07-2025 History of Present illness Narrative* Beverly Franco DPM - 12/21/2024 1:00 PM EDT SERVICE DATE: December 21, 2024 PCP: Wojciech [...] tripped going up a curb and started developpain and swelling about a week and a [...] TUNNEL RIGHT WRIST surgical correction COLONOSCOPY 05/10/2019 [facility] COLONOSCOPY GEN ANES 07/23/2020 Dr. Frances/Diverticulosis/Hemorrhoids/ Ulcerative Colitis/Rpt in 2 yrs. COLONOSCOPY SCREENING 03/2023 EGD EUS 01/11/2020 [facility] LASIK Right prior to [...] every 4 hours as needed for pain. oybevbo-ybdmsizsi-vxzayci D3 500 mg-5 mcg (200 unit) per tablet Take 1 tablet by mouth three times daily. MV with Elx-Vyullsot-Epcyla (CENTRUM SILVER) 0.4 mg-300 mcg- 250 mcg [...] which was not seen in the last x- ray by comparison (previous x-ray was 07/02/2023). Patient [...] conservative and surgical, prognosis, short and long term care social worker expectations, and benefit, and potential risks and complications associated with current condition as well as each related treatment option. Patient immobilized withpneumatic Aircast dispensed through [facility]. I have provided a order for rolling knee walker. FOLLOW-UP: 4 weeks with repeat weightbearing x-ray at that time SIGNATURE: Beverly Franco DPM PATIENT NAME: Jesus Gordont DATE: December 21, 2024 TIME: 1:06 PM Beverly Franco DPM documented in this encounterBlanchard Valley Health System [facility]05-07-2025 History of Present illness Narrative* Meghan Brown RT(R) - 12/21/2024 12:15 PM EDT Radiology Service Progress Note PATIENT NAME: Jesus [...] Cane, Wheelchair, Crutches, etc.)? Yes, Patient High Riskfor Falls What interventions were put in place to prevent falls during this visit? Instructed Patient to Callfor Help if Needed, Offered Assistance with Transfers/Clothing, Instructed Patient to Remain Seated(Not on Exam Table) Until Exam, and Increased Observations by Caregivers PATIENT GENDER DATA: Assigned female at . status: : No status:NO. PATIENT RELEVANT IMPLANT DATA REVIEWED: Not Applicable PATIENT PRESENTS WITH AN IMPLANTABLE OR ATTACHED HAND MODEL: No RADIOLOGY DEPARTMENT: General X-ray: Exam(s) Completed: Lower Extremity X- Ray(s): Foot, Right and Wt. Bearing PERIPHERAL IV DATA: Not applicable SIGNED BY: RT Erendira(R) December 21, 2024 12:03 PM documented in this encounterBl[facility]05-07-2025 NoteNationwide Children'S Hospital05-06-2025 Miscellaneous Notes* Telephone Encounter - Cydney Reynolds CMA - 12/20/2024 11:19 AM EDT ----- Message from Wojciech Treviño DO sent [...] most recent office visit from , her construction equipment overhauler, who cut back on her amiodarone but [...] 4:26 PM EDT To: Wojciech Treviño DO * Telephone Encounter - Monica Theodore CMA - 12/20/2024 11:19 AM EDT Patient called back and she understands this documented in this encounterMemorial [facility] Telephone encounter Note* Telephone Encounter - Cydney Reynolds CMA - 12/20/2024 11:19 AM EDT ----- Message from Wojciech Treviño DO sent [...] most recent office visit from , her construction equipment overhauler, who cut back on her amiodarone but [...] CMA Sent: 12/19/2024 4:26 PM EDT To: Wojciehc Treviño DO [facility]05-06-2025 Telephone encounter Note* Telephone Encounter - Monica Theodore CMA - 12/20/2024 11:19 AM EDT Patient called back and she understands this [facility]05-06-2025 Telephone encounter Note* Telephone Encounter - Selin Birmingham LPN - 12/20/2024 8:40 AM EDTSummary: Xray Patient contacted updated the images are not in chart for Dr. Franco to review. Patient agreeableto have xrays completed prior to appointment. Patient grateful for call. Selin Birmingham LPN [facility]05-06-2025 Miscellaneous Notes* Telephone Encounter - Selin Birmingham LPN - 12/20/2024 8:40 AM EDTSummary: Xray Patient contacted updated the images are not in chart for Dr. Franco to review. Patient agreeableto have xrays completed prior to appointment. Patient grateful for call. Selin Birmingham LPN documented in this encounterBlanchard Valley Health [facility]05-05-2025 History of Present illness Narrative* Wojciech Treviño DO - 12/19/2024 1:30 PM EDT Subjective Patient ID: Jesus Wolf is a 69 y.o. female. Jessu presents today for right ankle pain and [...] well. She also has calluses on her feetand sees a supervisor component assembler. Her Aldactone was stopped by the construction equipment overhauler. The following portions of the patient's history were reviewed and updated as appropriate: allergies, current medications, past family history, past medical history, past social history, past surgicalhistory, problem list, and medication reconciliation was completed including current medication andpost discharge medication. Review of Systems Cardiovascular: Positive [...] possible. She may need to see a supervisor component assembler. Pedal edema She said the construction equipment overhauler stopped her Aldactone. I am going to have her double up on her furosemideto 2 daily for 3 days to try to get rid of some of this fluid. documented in this encounterUniversity [facility] CenterSyn[facility]25 Telephone encounter Note* Telephone Encounter - Yesy Grace RN - 12/19/2024 9:07 AM EDT Pt is identified by name and birthdate: Yes Patient calls to make appt with Dr. Nayeli Jones for Right Foot Swelling - states she fell a few weeks ago and she is in pain/swelling. Denies Redness TOM: 03/05/21 Advised to be seen in [facility]. Patient agreeable [facility]05-05-2025 Miscellaneous Notes* Telephone Encounter - Yesy Grace RN - 12/19/2024 9:07 AM EDT Pt is identified by name and birthdate: Yes Patient calls to make appt with Dr. Nayeli Jones for Right Foot Swelling - states she fell a few weeks ago and she is in pain/swelling. Denies Redness TOM: 03/05/21 Advised to be seen in [facility]. Patient agreeable documented in this encounterBlanchard Valley Health System [facility]04-23-2025 History of Present illness Narrative* Yuriy Conway MD - 12/07/2024 10:40 AM EDT Chief Complaint Patient presents with Follow-up 4 month, paroxysmal atrial fibrillation Subjective Jesus Wolf is a 69 y.o. female HPI Patient is in the office for follow-up for recurrent atrial fibrillation in spite of having 3 ablations in the past the last event was in 2023. She is currently on amiodarone 400 mg daily and her EKGtoday confirmed normal sinus rhythm and QTc interval of 429 ms. In mid October she had 7-day episode of atrial fibrillation with a heart rate of 110 bpm which was well-tolerated. It resolved by itself.She was taking additional metoprolol tartrate for that event on top of her permanent 200 daily of metoprolol succinate. She has been anticoagulated with Eliquis despite having the watchman's device implantation. She did have a history of DVT that required long-term anticoagulation. The patient has had no bleeding complications. Her weight is slightly coming down but remains morbidly obese. She isintolerant to CPAP machine. Her systemic lupus presently seems to be quiescent. Her blood pressure is under control, cardiac examination, pulm examinations are normal. Medications were reviewed in details and amiodarone testing will be maintained. ASSESSMENT AND PLAN: 1. Paroxysmal atrial fibrillation, status post radiofrequency ablation with pulmonary vein isolation at [facility] that was done 3 times started in [...] medical therapy with hydroxychloroquine. Managed by the [facility] 4. Morbid obesity, patient is trying to [...] status post parathyroidectomy last year at the [facility] with success 10. Ascending aortic aneurysm measured [...] unspecified chronicity, unspecified laterality, unspecified vein 4. prison current use of anticoagulant therapy 5. Chronic [...] Attestation By signing my name below, I, Jesus Manjarrez LPN , Scribe attest that this documentation [...] exam, discussion and plan. documented in this [facility] Work Phone: [phone] Instructions* Patient Instructions* Jesus Alatorre LPN - 12/07/2024 10:40 AM [...] 65.5 Lbs Provided instructions on dietary changes. * Attachments The following attachments cannot be sent through Care Everywhere. * Heart Healthy Diet (Hungarian) documented in this encounterSelect [facility] Work Phone: [phone]) 241-367704-17-2025 Note* Addendum Note - Nadege Murphy DO - 12/01/2024 3:17 PM EDTAddended by: NADEGE MURPHY on: 12/01/2024 03:17 PM Modules accepted: Orders [facility]04-17-2025 Miscellaneous Notes* Addendum Note - Nadege Murphy DO - 12/01/2024 3:17 PM EDTAddended by: NADEGE MURPHY on: 12/01/2024 03:17 PM Modules accepted: Orders documented in this encounterBlanchard Valley Health System [facility]04-17-2025 NoteNationwide Children'S Hospital04-17-2025 History of Present illness Narrative* Cecille Casillas RN - 12/01/2024 9:00 AM EDT Since your last infusion, have [...] or open sores? No documented in this encounterBlanchard Valley Health System [facility]04-17-2025 Telephone encounter Note * Telephone Encounter - Radha Méndez RN - 12/01/2024 6:58 AM EDT Images from the original note were not included. Most recent Rheumatology visit: 11/16/2024 (with Nadege Murphy) Last Bone Density on file: 03/15/2024 Rheumatology Care Team: None on file Recent Office Visits - This Specialty 11/16/2024 Systemic lupus erythematosus, unspecified SLE type, unspecified organ involvement status(HCC) Rheumatology Nadege Murphy, 05/18/2024 Systemic lupus erythematosus, unspecified SLE type, unspecified organ involvement status(HCC) Rheumatology Nadege Murphy, 03/15/2024 Osteopenia of multiple sites Bone Center Obdulia Ann PA-C Upcoming Rheumatology Appointments - Next 365 Days Visit Type Date Time Department [facility] 05/24/2025 9:00 AM [facility] MAIN A50 Last Ophthalmology Check for Plaquenil [...] Open Future (Single Instance) Lab Orders None [facility]04-17-2025 Miscellaneous Notes* Telephone Encounter - Radha Méndez RN - 12/01/2024 6:58 AM EDT Images from the original note were not included. Most recent Rheumatology visit: 11/16/2024 (with Nadege Murphy) Last Bone Density on file: 03/15/2024 Rheumatology Care Team: None on file Recent Office Visits - This Specialty 11/16/2024 Systemic lupus erythematosus, unspecified SLE type, unspecified organ involvement status(HCC) Rheumatology Nadege Murphy DO 05/18/2024 Systemic lupus erythematosus, unspecified SLE type, unspecified organ involvement status(HCC) Rheumatology Nadege Murphy DO 03/15/2024 Osteopenia of multiple sites Bone Center Obdulia Ann PA-C Upcoming Rheumatology Appointments - Next 365 Days Visit Type Date Time Department [facility] 05/24/2025 9:00 AM [facility] MAIN A50 Last Ophthalmology Check for Plaquenil [...] Instance) Lab Orders None documented in this encounterBlanchard Valley Health System [facility]04-16-2025 Telephone encounter Note * Telephone Encounter - Kirsty Morrison RN - 11/30/2024 5:42 PM EDT Images from the original note were not included. Most recent Rheumatology visit: 11/16/2024 (with Nadege Murphy) Last Bone Density on file: 03/15/2024 Rheumatology Care Team: None on file Recent Office Visits - This Specialty 11/16/2024 Systemic lupus erythematosus, unspecified SLE type, unspecified organ involvement status(HCC) Rheumatology Nadege Murphy DO 05/18/2024 Systemic lupus erythematosus, unspecified SLE type, unspecified organ involvement status(HCC) Rheumatology Nadege Murphy DO 03/15/2024 Osteopenia of multiple sites Bone Center Obdulia Ann PA-C Upcoming Rheumatology Appointments - Next 365 Days Visit Type Date Time Department [facility] Last Ophthalmology Check for Plaquenil (Hydroxychloroquine) Scan on 11/23/2024 9:53 AM by ProviderSang PA-C: Consultation - Ophthalmology CBC: Latest Ref Rng [...] Open Future (Single Instance) Lab Orders None [facility]04-16-2025 Miscellaneous Notes* Telephone Encounter - Kirsty Morrison RN - 11/30/2024 5:42 PM EDT Images from the original note were not included. Most recent Rheumatology visit: 11/16/2024 (with Nadege Murphy) Last Bone Density on file: 03/15/2024 Rheumatology Care Team: None on file Recent Office Visits - This Specialty 11/16/2024 Systemic lupus erythematosus, unspecified SLE type, unspecified organ involvement status(HCC) Rheumatology Nadege Murphy, 05/18/2024 Systemic lupus erythematosus, unspecified SLE type, unspecified organ involvement status(HCC) Rheumatology Nadege Murphy, 03/15/2024 Osteopenia of multiple sites Bone Center Obdulia Ann PA-C Upcoming Rheumatology Appointments - Next 365 Days Visit Type Date Time Department [facility] 05/24/2025 9:00 AM [facility] A50 Last Ophthalmology Check for Plaquenil (Hydroxychloroquine) [...] Instance) Lab Orders None documented in this encounterBlanchard Valley Health [facility]04-16-2025 Telephone encounter Note * Telephone Encounter - Bang Spears RN - 11/30/2024 4:23 PM EDT Pharmacy escripts requesting the following refill: Requested Prescriptions Pending Prescriptions Disp Refills Mesalamine (LIALDA) 1.2 gram EC tablet 360 tablet 3 Sig: Take 4 tablets by mouth once daily. Please review and advise. Bang Spears RN [facility]04-16-2025 Telephone encounter Note* Telephone Encounter - Bang Spears RN - 11/30/2024 4:23 PM EDT Pharmacy escripts requesting the following refill: Requested Prescriptions Pending Prescriptions Disp Refills ferrous sulfate (IRON) 325 mg (65 mg iron) tablet 90 tablet 3 Sig: Take 1 tablet by mouth once daily. Please review and advise. Bang Spears RN [facility]04-16-2025 Miscellaneous Notes* Telephone Encounter - Bang Spears RN - 11/30/2024 4:23 PM EDT Pharmacy escripts requesting the following refill: Requested Prescriptions Pending Prescriptions Disp Refills ferrous sulfate (IRON) 325 mg (65 mg iron) tablet 90 tablet 3 Sig: Take 1 tablet by mouth once daily. Please review and advise. Bang Spears RN documented in this encounterBlanchard Valley Health System [facility]04-16-2025 Miscellaneous Notes* Telephone Encounter - Bang Spears RN - 11/30/2024 4:23 PM EDT Pharmacy escripts requesting the following refill: Requested Prescriptions Pending Prescriptions Disp Refills Mesalamine (LIALDA) 1.2 gram EC tablet 360 tablet 3 Sig: Take 4 tablets by mouth once daily. Please review and advise. Bang Spears RN documented in this encounterBlanchard Valley Health System [facility]04-14-2025 History of Present illness Narrative* Wojciech Treviño DO - 11/28/2024 1:30 PM EDTAssociated Order(s): $ Arthrocentesis Post-Procedure Diagnose(s): Localized osteoarthritis [...] age) post-procedure vital signs reviewed and stable * Wojciech Treviño DO - 11/28/2024 1:30 PM EDT Subjective Patient ID: Jesus Wolf is a 69 y.o. female. Jesus presents to the office today for left knee pain. This has been ongoing for quite some time. It is getting worse. She saw the [facility]opedist [facility] who said she had bone on bone although the x-ray report said mild arthritis. She did get a cortisone injection from the orthopedistin May and it lasted over 3 months. [...] medication andpost discharge medication. Review of Systems Objective Physical Exam Vitals reviewed. Exam conducted with a playground monitor present (Burak Peterson MS 3). Constitutional: General: [...] She would like to proceed. [facility] with the patient as well as the orthopedic visit. She was given an inj ection today without complications. She noted a near immediate improvement in pain. documented in this encounterMemorial Health [facility]04-10-2025 Telephone encounter Note* Telephone Encounter - Jessenia Lopes RN - 11/24/2024 5:31 AM EDT Scan on 11/23/2024 9:53 AM by ProviderSang PA-C: Consultation - Ophthalmology Jessenia Lopes RN [facility]04-10-2025 Miscellaneous Notes* Telephone Encounter - Jessenia Lopes RN - 11/24/2024 5:31 AM EDT Scan on 11/23/2024 9:53 AM by ProviderSang PAFlowerC: Consultation - Ophthalmology Jessenia Lopes RN * Telephone Encounter - Anastasiya Jackman - 11/23/2024 3:11 PM EDT Received eye report from [facility] on 11/23/24. Scanned for review. documented in this encounterBlanchard Valley Health System [facility]04-09-2025 Telephone encounter Note * Telephone Encounter - Anastasiya Jackman - 11/23/2024 3:11 PM EDT Received eye report from [facility] on 11/23/24. Scanned for review. [facility]04-02-2025 History of Present illness Narrative* Nadege Murphy Susan, - 11/16/2024 9:00 AM EDT Images from the original note were not included. [facility] DEPARTMENT OF RHEUMATIC AND IMMUNOLOGIC DISEASES SUBJECTIVE: [...] TUNNEL RIGHT WRIST surgical correction COLONOSCOPY 05/10/2019 [facility] COLONOSCOPY GEN ANES 07/23/2020 Dr. Frances/Diverticulosis/Hemorrhoids/ Ulcerative Colitis/Rpt in 2 yrs. COLONOSCOPY SCREENING 03/2023 EGD EUS 01/11/2020 [facility] Gastro LASIK Right prior to [...] every 4 hours as needed for pain. ltgbpdz-zvdozqzwp-ghswmud D3 500 mg-5 mcg (200 unit) per tablet Take 1 tablet by mouth three times daily. MV with Jcy-Tadhhpyy-Fvtwfw (CENTRUM SILVER) 0.4 mg-300 mcg- 250 mcg [...] Diagnosis based on 2019 ACR/EULAR classification criteria: PARVEZ, +dsDNA antibodies [...] associated with the use of these medications andthe appropriate lab monitoring. We will obtain labs [...] Murphy D.O. Rheumatology Staff documented in this encounterBlanchard Valley Health System [facility]04-02-2025 NoteNationwide Children'S Hospital04-01-2025 Telephone encounter Note* Telephone Encounter - Miroslava Braga LPN - 11/15/2024 12:11 PM EDT Pharmacy requesting Refill: TOM 09/30/24 Next appointment 06/16/25 Please review and sign if you agree. Thank You Miroslava Braga LPN Requested Prescriptions Pending Prescriptions Disp Refills colestipol (COLESTID) 1 gram tablet [Pharmacy Med Name: Colestipol HCl 1 GM Oral Tablet] 360 tablet3 Sig: TAKE 3 TABLETS BY MOUTH TWICE DAILY [facility]04-01-2025 Miscellaneous Notes* Telephone Encounter - Miroslava Braag LPN - 11/15/2024 12:11 PM EDT Pharmacy requesting Refill: TOM 09/30/24 Next appointment 06/16/25 Please review and sign if you agree. Thank You Miroslava Braga LPN Requested Prescriptions Pending Prescriptions Disp Refills colestipol (COLESTID) 1 gram tablet [Pharmacy Med Name: Colestipol HCl 1 GM Oral Tablet] 360 tablet3 Sig: TAKE 3 TABLETS BY MOUTH TWICE DAILY documented in this encounterBlanchard Valley Health System [facility]04-01-2025 NoteNationwide Children'S Hospital04-01-2025 History of Present illness Narrative* Radu Salazar MD - 11/15/2024 9:22 AM EDT [facility] NEPHROLOGY & HYPERTENSION [facility] SERVICE DATE: November [...] outside cardiology for Afib/ HFpEF (Dr Conway, [facility]) - had ablation and watchman device - [...] controlled, not checking at home - outside construction equipment overhauler monitoring closely PAST MEDICAL HISTORY: PAST MEDICAL [...] every 4 hours as needed for pain. gtjanqo-tsxdlhjrb-arizuar D3 500 mg-5 mcg (200 unit) per tablet Take 1 tablet by mouth three times daily. MV with Pqs-Wrvqcqea-Geijmh (CENTRUM SILVER) 0.4 mg-300 mcg- 250 mcg [...] 5.5 4.3 - 5.6 % Final Comment: [place] [employer] guidelines indicate that patients with HgbA1c in the range 5.7-6.4% are at increased risk for development of diabetes, and intervention by lifestyle modification may be beneficial. HgbA1c greater or equal to 6.5% is considered diagnostic of diabetes. 03/09/2019 5.5 4.3 - 5.6 % Final Comment: [place] [employer] guidelines indicate that patients with [...] Where positive and clinically warranted, follow-up using disease- specific testing is recommended. Low positive titers are [...] Range Status 05/26/2024 5.5 <8.5 Final Specific [place], Ur Date Value Ref Range Status 05/26/2024 [...] ICD-10-CM 1. Lupus nephritis, ISN/RPS class V ([facility]) M32.14 COMPREHENSIVE METABOLIC PANEL COMPLETE BLOOD COUNT [...] have been copied from previous encounters, if any,but have been updated as necessary. I spent a total of 35 minutes on the date of the service which included preparing to see the patient, spke-gy-yccu patient care, completing clinical documentation, obtaining and/or reviewing separately obtained history, performing a medically appropriate examination, counseling and educating the pat ient/family/caregiver, and ordering medications, tests, or procedures. SIGNATURE: Radu Salazar MD, FACP, FASN PATIENT NAME: Jesus Wolf DATE: November 15, 2024 TIME: 9:22 AM OFFICE NUMBER: [phone] CC: PRIMARY CARE PHYSICIAN: Wojciech Treviño MD, documented in this encounterBlanchard Valley Health System [facility]03-03-2025 Telephone encounter Note * Telephone Encounter - Fercho Parks LPN - 10/17/2024 11:16 AM EST Refill Request Last office visit: 09/30/[address] Frances Request for medication is as follows: Requested Prescriptions Pending Prescriptions Disp Refills pantoprazole DR (PROTONIX) 40 mg tablet [Pharmacy Med Name: Pantoprazole Sodium 40 MG Oral Tablet Delayed Release] 180 tablet 0 Sig: Take 1 tablet by mouth twice daily Prescription(s) as above. Please process accordingly. Fercho Parks LPN [facility]03-03-2025 Miscellaneous Notes* Telephone Encounter - Fercho Parks LPN - 10/17/2024 11:16 AM EST Refill Request Last office visit: 09/30/[address] Frances Request for medication is as follows: Requested Prescriptions Pending Prescriptions Disp Refills pantoprazole DR (PROTONIX) 40 mg tablet [Pharmacy Med Name: Pantoprazole Sodium 40 MG Oral Tablet Delayed Release] 180 tablet 0 Sig: Take 1 tablet by mouth twice daily Prescription(s) as above. Please process accordingly. Fercho Parks LPN documented in this encounterBlanchard Valley Health System [facility]02-25-2025 History of Present illness Narrative* Wojciech Treviño DO - 10/11/2024 4:00 PM EST Subjective Patient ID: Jesus Wolf is a 69 y.o. female. Jesus presents today to discuss several issues. She saw the construction equipment overhauler and he recommend that sheget treated for sleep apnea. Currently she does not use a CPAP. She was tested many years ago in [place]. She is interested in the new surgery [...] abnormal but she does not see a title one reading teacher. She has had the Watchman device implanted in her heart. She had a blood clot in her left upper arm and she is currently on Eliquis for. She still has some pain in her upper arm when she lays on it atnight. Sometimes the pain goes down her arm [...] unspecified SLE type, unspecified organ involvement status (CMS-HCC) Follow up with specialist as directed. Lupus can affect the lumgs. Acute deep vein thrombosis (DVT) of brachial vein of left upper extremity (CMS-HCC) Likely residual blood clot. She is currently on therapy. Would not recommend any further evaluationat this time. Obesity, morbid (CMS-HCC) She is obese. She would benefit from weight loss. It would help her sleep apnea. I believe there kimberlyn weight criteria for sleep apnea implant-[employer]. Chronic diastolic heart failure (CMS-HCC) Stable. Follow up with construction equipment overhauler. Recent CT scan of her chest and echocardiogram reviewed with the patient. Atypical atrial flutter (CMS-HCC) Seems to be in normal sinus rhythm now. She has had the watchman device implanted. documented in this encounterMemorial Health System [facility]02-20-2025 NoteNationwide Children'S Hospital02-20-2025 History of Present illness Narrative* Coco Guzman, RN - 10/06/2024 9:00 AM EST Since your last infusion, have [...] or open sores? No documented in this encounterBlanchard Valley Health System [facility]02-19-2025 Telephone encounter Note * Telephone Encounter - Coco Guzman RN - 10/05/2024 1:00 PM EST Spoke with patient who confirmed she is well and will be in for her infusion tomorrow. [facility]02-19-2025 Miscellaneous Notes* Telephone Encounter - Coco Guzman RN - 10/05/2024 1:00 PM EST Spoke with patient who confirmed she is well and will be in for her infusion tomorrow. * Telephone Encounter - Cecille Casillas RN - 10/05/2024 9:29 AM EST Called patient to confirm infusion appointment. No answer, left voicemail asking for return call orMyChart message confirming that they are well and will be coming to infusion appointment as scheduled. documented in this encounterBlanchard Valley Health System [facility]02-19-2025 Telephone encounter Note * Telephone Encounter - Cecille Casillas RN - 10/05/2024 9:29 AM EST Called patient to confirm infusion appointment. No answer, left voicemail asking for return call orMyChart message confirming that they are well and will be coming to infusion appointment as scheduled. [facility]02-14-2025 History and physical note* Dione Frances MD - 09/30/2024 9:45 AM EST FOLLOW UP OFFICE VISIT REASON FOR VISIT: Follow-up UC HPI: Jesus Wolf is a 69 year old female who presents for follow-up UC. She overall has been doing well. She has had some cardiac issues and recently had a Watchman deviceplaced. Her bowel movements are otherwise under good control with colestipol and lialda. She deniesany melena, hematochezia or rectal bleeding. Past Clinical [...] Lymph 1.00 - 4.00 k/uL 0.68 (L) Wagoner% % 3.8 Abs Wagoner <0.87 k/uL 0.34 Eosin% % 1.0 Abs [...] TUNNEL RIGHT WRIST surgical correction COLONOSCOPY 05/10/2019 [facility] COLONOSCOPY GEN ANES 07/23/2020 Dr. Frances/Diverticulosis/Hemorrhoids/ Ulcerative Colitis/Rpt in 2 yrs. COLONOSCOPY SCREENING 03/2023 EGD EUS 01/11/2020 [facility] LASIK Right prior to 1999 MRI PANC/JEANIE WO/W IVCON 12/20/2019 [facility]STECTOM[facility] PAST SURGICAL HISTORY OF 07/2013 bilateral foot procedure, Maverick PAST SURGICAL HISTORY OF Ablation X2 TONSILLECTOMY [...] every 4 hours as needed for pain. yciaqcb-jzopqgzmg-ajmqjxd D3 500 mg-5 mcg (200 unit) per tablet Take 1 tablet by mouth three times daily. MV with Nzp-Fiiovzvr-Kpgtwy (CENTRUM SILVER) 0.4 mg-300 mcg- 250 mcg [...] No history of dysuria, frequency or incontinence APPLICATIONS SYSTEM ANALYST: Negative for abnormal vaginal bleeding, abnormal [...] no red flag or alarm symptoms at thistime. RTC 8 months I spent a total of 30 minutes on the date of service which included preparing to see the patient, face to face patient care, completing clinical documentation, performing a medically appropriate examination and counseling and educating the patient/family/caregiver. Dione Frances MD, MPH Gastroenterology and Hepatology This note was partially generated using the Technology Keiretsu voice recognition system, there may be some incorrect words, spellings, and punctuation that were not noted in checking the note before saving [facility]02-14-2025 History and physical note* Dione Frances MD - 09/30/2024 9:45 AM EST FOLLOW UP OFFICE VISIT REASON FOR VISIT: Follow-up UC HPI: Jesus Wolf is a 69 year old female who presents for follow-up UC. She overall has been doing well. She has had some cardiac issues and recently had a Watchman deviceplaced. Her bowel movements are otherwise under good control with colestipol and lialda. She deniesany melena, hematochezia or rectal bleeding. Past Clinical [...] Lymph 1.00 - 4.00 k/uL 0.68 (L) Wagoner% % 3.8 Abs Wagoner <0.87 k/uL 0.34 Eosin% % 1.0 Abs [...] TUNNEL RIGHT WRIST surgical correction COLONOSCOPY 05/10/2019 [facility] COLONOSCOPY GEN ANES 07/23/2020 Dr. Frances/Diverticulosis/Hemorrhoids/ Ulcerative Colitis/Rpt in 2 yrs. COLONOSCOPY SCREENING 03/2023 EGD EUS 01/11/2020 [facility] LASIK Right prior to 1999 MRI PANC/JEANIE WO/W IVCON 12/20/2019 [facility] CYSTECTOMY PAST SURGICAL HISTORY OF 07/2013 bilateral foot procedure, Maverick PAST SURGICAL HISTORY OF Ablation X2 TONSILLECTOMY [...] every 4 hours as needed for pain. nhnhaqu-zqgvgeqfi-gqowvxm D3 500 mg-5 mcg (200 unit) per tablet Take 1 tablet by mouth three times daily. MV with Xwn-Wvexwbig-Nwhcrs (CENTRUM SILVER) 0.4 mg-300 mcg- 250 mcg [...] No history of dysuria, frequency or incontinence APPLICATIONS SYSTEM ANALYST: Negative for abnormal vaginal bleeding, abnormal [...] no red flag or alarm symptoms at thistime. RTC 8 months I spent a total of 30 minutes on the date of service which included preparing to see the patient, face to face patient care, completing clinical documentation, performing a medically appropriate examination and counseling and educating the patient/family/caregiver. Dione Frances MD, MPH Gastroenterology and Hepatology This note was partially generated using the Technology Keiretsu voice recognition system, there may be some incorrect words, spellings, and punctuation that were not noted in checking the note before saving documented in this encounterBlanchard Valley Health [facility] Instructions* Patient Instructions* Dione Frances MD - 09/30/2024 9:43 AM EST Continue mesalamine Continue colestipol 5 pill daily Continue Protonix twice daily Colonoscopy 2025 documented in this encounterBlanchard Valley Health [facility] Radiology Diagnostic [place] [address] CT Scan Report Signed Patient: Jesus Wolf MR#: [id number] : 1955 Acct:[id number] Age/Sex: 69 / F ADM Date: 5 Loc: CT Room: Type: [facility] Attending Dr: Yuriy Conway MD Copies to: Yuriy Conway MD, [facility]~ Ordering Provider: Yuriy Conway MD, [facility] Date of Service: 09/15/24 CT/CT angio chest: [...] measuring 4.5 cm. No dissection is seen. Three- vesselarch is noted. Pulmonary trunk appears dilated at 4.5 cm. No pericardial effusion. Left atrial occlusion device isseen. No lymphadenopathy. The esophagus is grossly unremarkable. Lungs:Scattered areas of lung scarring. No consolidation pneumothorax or pleural effusion. No nodule. Abd: No acute process.[ Soft tissues/Bones: No acute findings. Osseous structures demonstrate degenerative change. CT/CT angio chest IMPRESSION: Ectasia of the 8 ascending thoracic rim measuring 4.5 cm unchanged from the 2021 study. No evidenceof dissection or rupture. Dilatation of the pulmonary trunk suspicious for pulmonary hypertension. Impression dictated by: Jose Concepcion Jr., D.O.09/15/2024 3:59 PM Dictation Location: [facility]-- Transcribed By: [facility] 09/15/24 1559 Dictated By: Jose Concepcion Jr, DO 09/15/24 1553 Signed By: 09/15/24 1559 [facility]01-23-2025 Telephone encounter Note* Telephone Encounter - Fercho Parks LPN - 09/08/2024 2:04 PM EST Refill Request Last office visit: 12/22/23 with [...] above. Please process accordingly. Fercho Parks LPN [facility]01-23-2025 Miscellaneous Notes* Telephone Encounter - Fercho Parks LPN - 09/08/2024 2:04 PM EST Refill Request Last office visit: 12/22/23 with [...] accordingly. Fercho Parks LPN documented in this encounterBlanchard Valley Health System [facility]01-13-2025 [facility] [place] [address] Pulmonary Function Signed Patient: Jesus Wolf MR#: [id number] : 1955 Date of Service:0 08/29/24 Age/Sex: 69 / F ADM Date: 5 Loc: Room: Type: [facility] Attending Dr: Yuriy Conway MD Copies to: MD Wojciech Lorenzo DO Hassan M Ibrahim, MD, [facility]~ Pulmonary Function Test Complete pulmonary function studies were performed on August 29, 2024 for patient with diagnosis of long-term high risk medication use. Spirometry was acceptable and reproducible with adequate durations of exhalation. Please refer to the pulmonary function test report for the raw data. SPIROMETRY: Spirometry was performed with bronchodilator studies and reveals an FEV1 to FVC ratio of 78% with an FEV1 of 1.89 liters (71% predicted) and a forced vital capacity of 2.41 liters (69% predicted). After administration of bronchodilators, there was no significant improvement in the forced vital capacity nor FEV1 with a significant improvement in the mid and terminal expiratory flows noted. LUNG VOLUMES: Measurement of static lung volumes was performed by plethysmography and indicates a total lung capacity of 4.45 liters (81% predicted) with a residual volume which was 93% of predicted and a residual volume to total lung capacity ratio of 46%. DIFFUSION CAPACITY: Single breath diffusion capacity is 18.0 mL/mmHg/min (80 to % predicted) and is115% predicted after adjustment for alveolar volume. SUMMARY: These pulmonary function studies reveal proportional decreases in expiratory flow which could suggest the possibility of restriction with low normal total lung capacity appreciated. There isno obvious evidence of an obstructive ventilatory defect but there is evidence of a bronchodilator r esponse on the basis of improvement in the mid and terminal expiratory flows. Diffusion capacity islow normal and improves after adjustment for alveolar volume. There is incidentally no clear evidence of air trapping. Compared to prior studies of September 29, 2018, there has been marked decrease in expiratoryflows with a 5% decrease in total lung capacity and a 14% decrease in the singlebreath diffusion capacity. This is the first evidence of a decrease in diffusion capacity dating back to December2017. I do not believe an adjustment in medical therapy is clearly warranted on the basis of the studies. Clinical correlation is recommended. Transcribed By: GIOVANNI 08/29/24 1556 Dictated By: Delfino Moreno MD 08/29/24 1556 Signed By: 08/29/[address] [place], [place] [address]68712-26-2024 Telephone encounter Note* Telephone Encounter - Karime Tinsley - 08/11/2024 3:50 PM EST Called patient to confirm she received the message that was sent by Ana Paula cramerceling her appointment. Patient reports vaguely getting a message of sorts. I asked the patient if she would like to reschedule. She declined and reports her knee has been doing ok since the last injection. [facility]12-26-2024 Miscellaneous Notes* Telephone Encounter - Karime Tinsley - 08/11/2024 3:50 PM EST Called patient to confirm she received the message that was sent by Ana Paula cramerceling her appointment. Patient reports vaguely getting a message of sorts. I asked the patient if she would like to reschedule. She declined and reports her knee has been doing ok since the last injection. documented in this encounterBlanchard Valley [facility]12-26-[facility]24 [facility] History of Present illness Narrative* Kim Gallegos RN - 08/11/2024 11:03 AM EST Since your last infusion, have [...] or open sores? No documented in this encounterBlanchard Valley Health System [facility]12-23-2024 Telephone encounter Note * Telephone Encounter - Cecille Casillas RN - 08/08/2024 11:19 AM EST Called and spoke with patient. Confirmed she is well and will be coming for her infusion on . [facility]12-23-2024 Miscellaneous Notes* Telephone Encounter - Cecille Casillas RN - 08/08/2024 11:19 AM EST Called and spoke with patient. Confirmed she is well and will be coming for her infusion on . documented in this encounterBlanchard Valley Health System [facility]12-20-2024 History of Present illness Narrative* Buster Mg MA - 08/05/2024 3:00 PM EST Subjective Jesus Wolf is a 69 y.o. [...] mouth every 7 days. On Thursday. Take inthe morning with a full glass of water, on an empty stomach, and do not take anything else by mouthor lie down for the next 30 min., [...] Attestation By signing my name below, IBell LPN , Paco attest that this documentation has been prepared under the direction and in the presence of Yuriy Conway MD. Provider Attestation - Scribe documentation All medical record entries made by the Scribe were at my direction and personally dictated by me. Ihave reviewed the chart and agree that the record accurately reflects my personal performance of the history, physical exam, discussion and plan. * Yuriy Conway MD - 08/05/2024 3:00 PM EST Subjective Jesus Wolf is a 69 y.o. female Chief Complaint Follow-up HPI Patient is in the office for follow-up for paroxysmal defibrillation among other problems noted below. Back in October 2023 she had ablation for atrial fibrillation at [facility] which was successful. Couple months later she had spontaneous left arm axillary vein thrombosis with spontaneous r esolution on anticoagulation. In March 2024 she underwent placement of a watchman's device with nocomplications. Because she need to be on the [...] edema and her blood pressure is under control.She has sleep apnea but is intolerant to CPAP machine which is contributing to her symptoms of dyspnea and fatigue. ASSESSMENT AND PLAN: 1. Paroxysmal atrial fibrillation, status post radiofrequency ablation with pulmonary vein isolation at [facility] in 2019 and in 2023 with recurrences while on amiodarone therapy. Currentlyanticoagulated with Eliquis and she is also status post watchman's device March 2024. 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 Will leave the patient on amiodarone 400 mg daily for the time being and utilize metoprolol tartrate 25 mg for treatment of breakthrough events of atrial fibrillation. Meanwhileincrease to baseline beta-girish therapy of metoprolol succinate up to 200 mg daily. Will initiateamiodarone workup. 2. Obstructive sleep apnea, unable to utilize CPAP machine. She utilizes oxygen at night. Weight reduction program was recommended to help in that regard 3. Systemic lupus, in remission, on medical therapy with hydroxychloroquine. Managed by the [facility] 4. Morbid obesity, patient is trying to [...] status post parathyroidectomy last year at the [facility] with success 10. Ascending aortic aneurysm measured [...] mouth every 7 days. On Thursday. Take inthe morning with a full glass of water, on an empty stomach, and do not take anything else by mouthor lie down for the next 30 min., [...] Thoracic aortic aneurysm without rupture, unspecified part ([facility]) 7. Nonsustained ventricular tachycardia (Multi) 8. Obstructive sleep apnea 9. Never smoked any substance 10. BMI 39.0-39.9,adult Scribe Attestation By signing my name below, Bell Sharma LPN, Scribe attest that this documentation has [...] exam, discussion and plan. documented in this encounterSelect [facility] Work Phone: [phone]) 762-156312-20-2024 Instructions* Patient Instructions* Bell Zamarripa LPN - 08/05/2024 3:00 PM [...] mg daily Echo Luis documented in this encounterSelect [facility] Work Phone: 1(773) 872-668012-02-2024 Miscellaneous Notes* Telephone Encounter - Rachelle Guzman CMA - 07/18/2024 3:57 PM EST Patient called back and stated that she now is testing positive for covid. She started feeling worse after Thanksgiving and took a Covid test today and tested Positive. What is your suggestions for her? * Telephone Encounter - Wojciech Taz DO Kamila - 07/18/2024 3:57 PM EST She is past the 5 day window so it is just supportive care. If she gets short of breath she should go to the emergency room. Use cough suppressants an analgesics * Telephone Encounter - Rachelle Guzman CMA - 07/18/2024 3:57 PM EST notified documented [facility] encounterMem[facility] Telephone encounter Note* Telephone Encounter - Rachelle Guzman CMA - 07/18/2024 3:57 PM EST Patient called back and stated that she now is testing positive for covid. She started feeling worse after Thanksgiving and took a Covid test today and tested Positive. What is your suggestions for her? [facility]12-02-2024 Telephone encounter Note* Telephone Encounter - Wojciech Taz DO Kamila - 07/18/2024 3:57 PM EST She is past the 5 day window so it is just supportive care. If she gets short of breath she should go to the emergency room. Use cough suppressants an analgesics [facility]12-02-2024 Telephone encounter Note* Telephone Encounter - Rachelle Guzman CMA - 07/18/2024 3:57 PM EST notified [facility]12-02-2024 Telephone encounter Note* Telephone Encounter - Alejandra Tian MA - 07/18/2024 7:30 AM EST Pharmacy has requested the following refill(s): Requested Prescriptions Pending Prescriptions Disp Refills pantoprazole DR (PROTONIX) 40 mg tablet [Pharmacy Med Name: Pantoprazole Sodium 40 MG Oral Tablet Delayed Release] 180 tablet 0 Sig: Take 1 tablet by mouth twice daily [facility]12-02-2024 Miscellaneous Notes* Telephone Encounter - Alejandra Tian MA - 07/18/2024 7:30 AM EST Pharmacy has requested the following refill(s): Requested Prescriptions Pending Prescriptions Disp Refills pantoprazole DR (PROTONIX) 40 mg tablet [Pharmacy Med Name: Pantoprazole Sodium 40 MG Oral Tablet Delayed Release] 180 tablet 0 Sig: Take 1 tablet by mouth twice daily documented in this encounterBlanchard Valley Health [facility]11-25-2024 History of Present illness Narrative* Wojciech G Kamila, - 07/11/2024 1:30 PM EST Subjective Patient ID: Jesus Wolf is a 69 y.o. female. Jesus Wolf is a 69 y.o. female presenting today with a cough. She says that she has coughing, congestion, sore throat, earache, headache and sinus issues. Her symptoms started to on Thursdayand got worse yesterday. She denies fever, chills, [...] medication andpost discharge medication. Review of Systems HENT: Positive for congestion, ear pain (Pressure), sinus pressure and sore throat. Respiratory: Positive for cough. Negative for shortness of breath, wheezing and stridor. Cardiovascular: Negative. Objective Physical Exam Vitals reviewed. Exam conducted with a playground monitor present (Hakeem Orosco MS III). Constitutional: General: She is not [...] rhinorrhea present. Rhinorrhea is clear. Mouth/Throat: Lips: [place]. Mouth: Mucous membranes are moist. Pharynx: Posterior [...] morning. follow package directions. documented in this encounterMemorial [facility]11-14-2024 History of Present illness Narrative* Wojciech Treviño DO - 06/30/2024 9:00 AM EST Subjective Patient ID: Jesus Wolf is a 69 y.o. female. Jesus presents today for general recheck. Her left upper arm pain and swelling is better. Her veins are prominent though. She sees the construction equipment overhauler next month. She is back in atrial fibrillation. She is taking her Eliquis. She did have a Watchman procedure though and was hoping to get off the Eliquis. Her right knee continues to cause pain. She is taking Celebrex. She is aware of the bleeding and renal risks. The environmental monitoring specialist told her it was bone on bone but wants her to lose 30 lb beforethey will replace it. She is struggling with her weight. Her son is taking Wegovy and it is helpinghim. She is wondering if she could take something like that. She did have a cortisone injection andcan have those every 3 months but would like to have her knee replaced eventually She sees her kineseologist. She had her kidneys checked recently and the function did improve.. Follow-up The following portions of the patient's history were reviewed and updated as appropriate: allergies, current medications, past family history, past medical history, past social history, past surgicalhistory, problem list, and medication reconciliation was completed including current medication andpost discharge medication. Review of Systems Constitutional: Negative. Respiratory: Negative. Objective Physical Exam Vitals reviewed. Exam conducted with a playground monitor present (Hakeem Yee MS III). Constitutional: General: [...] of brachial vein of left upper extremity ([facility]) Stay on Eliquis for now. Pathophysiology of DVTs discussed. Will defer to Cardiology to see if she needs to stay on anticoagulation half-way or if she needs further imaging. Post phlebitic syndrome discussed and she may need to see vascular. Paroxysmal atrial fibrillation ([facility]) She seems to be in sinus rhythm right now. Continue current regimen. Follow up with cardiology as directed. Stage 3a chronic kidney disease ([facility]) Last GFR improved significantly to 59. That [...] skin once a week. documented in this encounterMemorial Health [facility]10-29-2024 History of Present illness Narrative* Coco Guzman RN - 06/14/2024 9:16 AM EDT Since your last infusion, have [...] or open sores? No documented in this encounterBlanchard Valley [facility]10-28-2024 Telephone encounter Note * Telephone Encounter - Arianne Cox RN - 06/13/2024 9:43 AM EDT Confirmed patient will be here for infusion and is infection free. [facility]10-28-2024 Miscellaneous Notes* Telephone Encounter - Arianne Cox RN - 06/13/2024 9:43 AM EDT Confirmed patient will be here for infusion and is infection free. documented in this encounterBlanchard Valley Health System [facility]10-04-2024 History of Present illness Narrative* Mary Childress MD - 05/20/2024 9:35 AM EDTAssociated Order(s): Large Joint Arthro/Inj: L knee joint [...] Months Frequency: Intermittent Intermittent Intervention/Comfort measure: Reposition;Massage;Positioning Reposition;Relaxation;Positioning;Medication tylenol, voltaren gel HISTORY: Jesus Wolf has [...] with uninfected necrosis SLE (systemic lupus erythematosus) ([facility]) Sleep apnea 07/29/2012 SOCIAL HISTORY: Tobacco Use: [...] knee joint Informed Consent Consent Obtained: Written [place] Protocol A moment to CARE was completed. [...] degenerative change. She receives care through her health care administrator consistently. She is also receiving treatments for [...] evaluation on this patient. I have examined thepatient and reviewed radiographic studies and agree with plan as outlined above. Warmed substantialpart of today's visit and MDM. Patient with severe left knee osteoarthritis. Has multiple significant comorbidities including morbid obesity. Discussed surgical treatment and indications. Discussed implications of her comorbidities. We injected her knee today with cortisone. Will follow-up in 3 months aMry Childress MD May 20, 2024 10:27 AM documented in this encounterBlanchard Valley Health System [facility]10-04-2024 History of Present illness Narrative* Sarai Bean RT(R) - 05/20/2024 9:23 AM EDT Radiology Service Progress Note PATIENT NAME: Jesus [...] PATIENT PRESENTS WITH AN IMPLANTABLE OR ATTACHED HAND MODEL: No RADIOLOGY DEPARTMENT: General X-ray: Exam(s) Completed: Lower Extremity X- Ray(s): Knee, AP Only Left PERIPHERAL IV DATA: Not applicable SIGNED BY: RT Nandini(R) May 20, 2024 9:23 AM documented in this encounterBlanchard Valley Health System [facility]10-03-2024 History of Present illness Narrative* Wojciech Treviño, - 05/19/2024 3:45 PM EDT Subjective Patient ID: Jesus Wolf is a [...] medication andpost discharge medication. Review of Systems Objective Physical [...] Ok to use topical agents.will likely need kneereplaced. It is affecting her quality of life. Essential hypertension Blood pressure at goal. Continue current regimen Obesity, morbid (CMS-HCC) She is obese. She would benefit from wt loss. Need for immunization against influenza - Influenza, Trivalent, Adjuvanted she agrees to high dose flu vaccine documented in this encounterMercy Health Urbana HospitalNorthStar [facility]esthesia [facility] [id number] History of Present illness Narrative* Nadege Murphy DO - 05/18/2024 2:30 PM EDT Images from the original note were not included. [facility] DEPARTMENT OF RHEUMATIC [...] TUNNEL RIGHT WRIST surgical correction COLONOSCOPY 05/10/2019 [facility] COLONOSCOPY GEN ANES 07/23/2020 Dr. Frances/Diverticulosis/Hemorrhoids/ Ulcerative Colitis/Rpt in 2 yrs. COLONOSCOPY SCREENING 03/2023 EGD EUS 01/11/2020 [facility] LASIK Right prior to [...] every 4 hours as needed for pain. xfhrhbf-hnujfalvy-clxohcw D3 500 mg-5 mcg (200 unit) per tablet Take 1 tablet by mouth three times daily. MV with Azd-Jlltlmki-Qrrksc (CENTRUM SILVER) 0.4 mg-300 mcg- 250 mcg [...] associated with the use of these medications andthe appropriate lab monitoring. We will obtain labs [...] Murphy D.O. Rheumatology Staff documented in this encounterBlanchard Valley Health System [facility]09-30-2024 History of Present illness Narrative* Christian Kaur, RIGGING MAN-GUIDE EXCURSION - 05/16/2024 10:30 AM EDT Subjective Jesus Wolf is a 69 y.o. female. Chief Complaint: Follow-up and Atrial Fibrillation 68 year old female presents today for 4 month follow up post Afib Ablation and 1 month post Watchman implant. PMH includes: MONI, Systemic lupus, in remission, on medical therapy with hydroxychloroquine, morbidobesity, hyperlipidemia, HTN, History of hypercalcemia caused by hyperparathyroidism status post parathyroidectomy last year at the [facility] with success, Ascending aortic aneurysm measured 4.6 cm from echocardiogram September 2021, follow-up echocardiogram in 2021 measured only 3.8cm, A-fib treatment history: The initial diagnosis date [...] back to NSR spontaneously. She uses a [employer] mobile device and statesshe is going in [...] by mouth once daily. Do not start beforeApril 2023. 30 tablet 5 atorvastatin (Lipitor) 40 [...] mouth 2 times a day. Do not crush,chew, or split. spironolactone (Aldactone) 50 mg tablet [...] or concerning symptoms and follow-up with our officeas needed documented in this [facility] Work Phone: [phone]) 178-367309-23-2024 History of Present illness Narrative* Kimmy Cerda, PT - 05/09/2024 10:30 AM EDT Physical Therapy Evaluation Visit Patient Name: Jesus Wolf Today's Date: 05/09/2024 Encounter Diagnoses Name Primary? Unilateral primary osteoarthritis, left knee Yes Visit number: 1 Timed Code Treatment Minutes: 46 minutes Total Treatment Time: 46 minutes Time In: 1030 Time Out: 1116 History: Pt has been having left knee pain for quite some time. Had an X-ray in [place] which showed bone on bone OA of [...] minutes) Strength, Endurance, Flexibility, ROM, HEP, Neural Mobilization,Power, and Core Stability as needed. Pt instructed [...] to be instructed in home exercise program. Fdc Goals: To be met in 10 weeks [...] Please sign below. Date: documented in this encounterUniversity Health Lakewood Medical [id number] Telephone encounter Note* Telephone Encounter - Coco Guzman RN - 04/19/2024 2:58 PM EDT This patient requests that her Benlysta infuse over 2 hours instead of 1 hour. She states that she had issues with nausea and not feeling well in the past when infused over 1 hour. Can you please change her plan to reflect this if you agree? Thank you [facility]09-03-2024 Miscellaneous Notes* Telephone Encounter - Coco Guzman RN - 04/19/2024 2:58 PM EDT This patient requests that her Benlysta infuse over 2 hours instead of 1 hour. She states that she had issues with nausea and not feeling well in the past when infused over 1 hour. Can you please change her plan to reflect this if you agree? Thank you documented in this encounterBlanch[facility] History of Present illness Narrative* Coco Guzman RN - 04/19/2024 9:59 AM EDT Since your last infusion, have [...] or open sores? No documented in this encounterBlanchard Valley [facility]08[facility] Miscellaneous Notes* Telephone Encounter - Nelia Berumen CMA - 04/16/2024 9:04 AM EDT Contract: [id number] Dr Zhang., radiologist at [place] [address] re ultrasound results. Thanks. michael Pickens. documented in this encounterMem[facility]24 Telephone encounter Note* Telephone Encounter - Nelia Berumen CMA - 04/16/2024 9:04 AM EDT Contract: [id number] Dr Zhang., radiologist at [place] [address] re ultrasound results. Thanks. michael Pickens. [facility]08-30-2024 Telephone encounter Note* Telephone Encounter - Arianne Cox RN - 04/15/2024 11:37 AM EDT Confirmed patient will be here for infusion and is infection free. [facility]08-30-2024 Miscellaneous Notes* Telephone Encounter - Arianne Cox RN - 04/15/2024 11:37 AM EDT Confirmed patient will be here for infusion and is infection free. documented in this encounterBlanchard Valley [facility]08-[facility] Hospital Discharge instructions* Discharge Instructions* Jori Kaiser MD - 04/07/2024 3:01 PM EDT INSTRUCTIONS AFTER PROCEDURE: * In the first week after procedure you should take it easy. No heavy lifting or heavy exertion, notreadmill. You can use the stairs if needed [...] *Continue to follow up with your primary construction equipment overhauler, primary care physician, and any other specialists [...] It is recommended that a responsible adult bewith you for the first 24 hours. DO NOT drink any alcoholic drinks or take any non-prescriptive medications that contain alcohol forthe first 24 hours. DO NOT make any [...] minimal inflammation. If you have any concerns, youmay contact the Labor Trainer or if any of these symptoms become excessive, contact your construction equipment overhauler miguelina to the emergency room. No tub baths, soaking, or swimming for one week. May shower the next day after your procedure. If you have any questions about the effects of the sedative drugs or groin care, call the physicianwho performed your procedure. FOLLOW UP: Court Kaur - already scheduled documented in this encounterSelect [facility] Work Phone: [phone]) 164-128608-14-2024 Miscellaneous Notes* Telephone Encounter - Monica Theodore CMA - 03/30/2024 12:27 PM EDT Patient asked at the discharge window if she could take this again for 3 months. documented in this encounterMemorial Health [facility]08-14-2024 Telephone encounter Note* Telephone Encounter - Monica Theodore CMA - 03/30/2024 12:27 PM EDT Patient asked at the discharge window if she could take this again for 3 months. [facility]08-14-[facility] History of Present illness Narrative* Wojciech Treviño, - 03/30/2024 10:00 AM EDT Images from the original [...] testing so they sent her to a kineseologist at the [facility] who did an ultrasound of her [...] andpost discharge medication. Review of Systems Constitutional: Negative. Eyes: Negative. Respiratory: Negative. Cardiovascular: Negative. Gastrointestinal: Negative. Musculoskeletal: Positive for arthralgias, back pain, joint swelling and myalgias. Negative for gait problem. Skin: Negative. Psychiatric/Behavioral: The patient is nervous/anxious. Objective Physical Exam Exam conducted with a playground monitor present (Emiliano Reyna MS III). Constitutional: Appearance: [...] which showed stage IIIA chronic kidney disease. Sheis seeing the kineseologist. Localized osteoarthritis of left knee - Ambulatory referral to Physical Therapy ([facility]); Future I recommend that she follows through with physical therapy because it may help and if it does not then it will lend to her case that she needs a surgical intervention. Continue Celebrex. Can also useTylenol. Varicose veins of left upper extremity - [...] weight loss. Diet exercise and weight loss discussed.She is really is not able to exercise [...] stopped. We will restart it 5 mg 3times a day documented in this encounterMemorial Health [facility]08-12-2024 History of Present illness Narrative* Romana Nath RDMS - 03/28/2024 11:30 AM EDT Radiology Service Progress Note PATIENT NAME: Jesus [...] PATIENT PRESENTS WITH AN IMPLANTABLE OR ATTACHED HAND MODEL: No RADIOLOGY DEPARTMENT: Ultrasound PERIPHERAL IV DATA: Not applicable SIGNED BY: Romana Nath RDMS March 28, 2024 11:24 AM documented in this encounterBlanchard Valley [facility]08-[facility] Note* Addendum Note - Nadege Murphy DO - 03/17/2024 11:11 AM EDTAddended by: NADEGE MURPHY on: 03/17/2024 11:11 AM Modules accepted: Orders [facility]08-01-2024 Miscellaneous Notes* Addendum Note - Nadege Murphy DO - 03/17/2024 11:11 AM EDTAddended by: NADEGE MURPHY on: 03/17/2024 11:11 AM Modules accepted: Orders * Addendum Note - Sergo Vila RN - 03/17/2024 11:01 AM EDTAddended by: SERGO VILA on: 03/17/2024 11:01 AM Modules accepted: Orders * Telephone Encounter - Sergo Vila RN - 03/17/2024 10:58 AM EDT Images from the original note were not included. Most recent Rheumatology visit: 03/15/2024 (with Obdulia Ann) Rheumatology Care Team: None on file Recent Office Visits - This Specialty 03/15/2024 Osteopenia of multiple sites [facility] Obdulia Ann PA-C 12/25/2023 Systemic lupus erythematosus, unspecified SLE type, unspecified organ involvement status(HCC) Rheumatology Nadege Murphy DO 10/13/2023 Osteopenia, unspecified location [facility] Obdulia Ann PA-C Upcoming Rheumatology Appointments - Next 365 Days Visit Type Date Time Department [facility] 07/11/2024 2:00 PM RHEU MAIN A50 [...] Instance) Lab Orders None documented in this encounterBlanchard Valley [facility]08-[facility] Note* Addendum Note - Sergo Vila RN - 03/17/2024 11:01 AM EDTAddended by: SERGO VILA on: 03/17/2024 11:01 AM Modules accepted: Orders [facility]08-01-2024 Telephone encounter Note* Telephone Encounter - Sergo Vila RN - 03/17/2024 10:58 AM EDT Images from the original note were not included. Most recent Rheumatology visit: 03/15/2024 (with Obdulia Ann) Rheumatology Care Team: None on file Recent Office Visits - This Specialty 03/15/2024 Osteopenia of multiple sites [facility] Obdulia Ann PA-C 12/25/2023 Systemic lupus erythematosus, unspecified SLE type, unspecified organ involvement status([facility]) Rheumatology Nadege Murphy DO 10/13/2023 Osteopenia, unspecified location [facility] Obdulia Ann PA-C Upcoming Rheumatology Appointments - Next 365 Days Visit Type Date Time Department [facility] 07/11/2024 2:00 PM RHEU MAIN A50 VIDEO [...] Open Future (Single Instance) Lab Orders None [facility]07-30-2024 History of Present illness Narrative* Jayleen Palmer, RT(R) - 03/15/2024 4:00 PM EDT Radiology Service Progress Note PATIENT NAME: Jesus [...] PATIENT PRESENTS WITH AN IMPLANTABLE OR ATTACHED HAND MODEL: No RADIOLOGY DEPARTMENT: General X-ray: Exam(s) Completed: Lower Extremity X- Ray(s): Knee, AP / LAT Left PERIPHERAL IV DATA: Not applicable SIGNED BY: RT Albino(R) March 15, 2024 3:40 PM documented in this encounterBlanchard Valley Health [facility]07-30-2024 History of Present illness Narrative* Obdulia Ann PA-C - 03/15/2024 2:29 PM EDT Images from the original note were not included. Osteoporosis and Metabolic Bone Disease Date of Service: 03/15/2024 Patient: Jesus Wolf Medical Record: [id number] Primary Care Physician: Wojciech Treviño MD, DO Last Rheumatology visit: 12/25/2023 (with Nadege Murphy) History of Present Illness Jesus Wolf is a 69 year old White female who presents on 03/15/2024 for an in-person visit forevaluation of Osteopenia. [...] Last Ophthalmology Check for Plaquenil (Hydroxychloroquine) Last MAY Macula Exam No resulted procedures found. Last Visual Field Exam No resulted procedures found. History of Radiation: No RISK FACTORS Osteoporosis FRAX Risk Factors No Fractures No family history of osteoporosis No parent with a hip fracture Not a current smoker Glucocorticoid use (Comment: Daily steroid uses from about 5195-5569) Previous use No rheumatoid arthritis Secondary osteoporosis [...] DATE OF EXAM: Mar 15 2024 2:20PM Hakan 0802 - BD VFA WITH DXA - AXIAL SKELETON / PROCEDURE REASON: multiple diagnoses * * * * Physician Interpretation * * * * EXAMINATION: DXA BONE DENSITOMETRY BD VFA WITH DXA - AXIAL SKELETON PATIENT DEMOGRAPHICS: Age: 69 years, Gender: Female SCANNER INFORMATION: DXA Model: A2Webrazziy (S/N: [id number]) Date Scanned: 03/15/2024 2:20 PM CLINICAL HISTORY: DIAGNOSTIC Osteopenia, unspecified location S/P parathyroidectomy S/P parathyroidectomy prison (current) use of 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. RISK FACTORS FOR [...] had a previous bone density in the [facility] or the previous bone density was performed on a different DXA machine (new, updated model or different location) within the [facility]. VERTEBRAL FRACTURE ASSESSMENT Indication for VFA: Physician [...] FOR MORE INFORMATION ABOUT DIAGNOSIS AND TREATMENT: [facility] for Osteoporosis and Metabolic Bone Disease:? www.ccf.org/arthritis/osteo National Osteoporosis Foundation:? www.nof.org International Society of Clinical Densitometry www.iscd.org Implant Polisher: [id number] Transcribe Date/Time: Mar 15 2024 2:24P Dictated [...] 7 8 Pain Location: Knee-Left -- Description: Aching;Burning;Sharp;Sore;Stabbing;Stiffness;Tenderness;Throbbing;Tightness -- Can't hardly walk on knee Duration [...] TUNNEL RIGHT WRIST surgical correction COLONOSCOPY 05/10/2019 [facility] COLONOSCOPY GEN ANES 07/23/2020 Dr. Frances/Diverticulosis/Hemorrhoids/ Ulcerative Colitis/Rpt in 2 yrs. COLONOSCOPY SCREENING 03/2023 EGD EUS 01/11/2020 [facility] LASIK Right prior to [...] - Calcium Replacement/Vitamin D Combinations Start End yuaqyue-ogmnvqhnh-feadfvs D3 500 mg-5 mcg (200 unit) per tablet 08/27/2022 -- Sig - Route: Take 1 tablet by mouth three times daily. - ORAL Class: OTC Vitamins - D Derivatives Start End Cholecalciferol, Vitamin D3, 2,000 unit cap -- Sig - Route: Take by mouth once daily. - ORAL Class: Historical Med Multivitamin and Mineral Combinations Start End MV with Eqq-Buhmgchh-Sbqqye (CENTRUM SILVER) 0.4 mg-300 mcg- 250 mcg tab -- Sig - Route: Take 1 tablet by mouth once daily. - ORAL Class: Historical Med Minerals and Electrolytes - Calcium Replacement/Vitamin D Combinations Start End sjqtlrz-entbokmeg-kkindwy D3 500 mg-5 mcg (200 unit) per [...] every 4 hours as needed for pain. lgjdzwd-nghgvlkkv-crvyqsg D3 500 mg-5 mcg (200 unit) per tablet Take 1 tablet by mouth three times daily. 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 Obdulia Ann PA-C Date: March 15, 2024 documented in this encounterBlanchard Valley [facility]07[facility] History of Present illness Narrative* Belkis Liriano RT(R) - 03/15/2024 1:40 PM EDT Radiology Service Progress Note PATIENT NAME: Jesus [...] PATIENT PRESENTS WITH AN IMPLANTABLE OR ATTACHED HAND MODEL: No RADIOLOGY DEPARTMENT: Bone Density PERIPHERAL IV DATA: Not applicable SIGNED BY: RT Butch(R) March 15, 2024 1:36 PM documented in this encounterBlanchard Valley [facility]07-22-2024 Telephone encounter Note * Telephone Encounter - Sergo Vila RN - 03/07/2024 2:32 PM EDT Images from the original note were not included. Eye Exam 10/27/2023: Scan on 10/27/2023 10:24 AM by Provider, ISELA Domínguez: Consultation - Ophthalmology Most recent Rheumatology visit: 12/25/2023 (with Nadege Murphy) Rheumatology Care Team: None on file Recent Office Visits - This Specialty 12/25/2023 Systemic lupus erythematosus, unspecified SLE type, unspecified organ involvement status(HCC) Rheumatology Nadege Murphy DO 10/13/2023 Osteopenia, unspecified location [facility] Obdulia Ann PA-C 04/10/2023 Systemic lupus erythematosus, unspecified SLE type, unspecified organ involvement status(HCC) Rheumatology Nadege Murphy DO Upcoming Rheumatology Appointments [...] Open Future (Single Instance) Lab Orders None [facility]07-22-2024 Miscellaneous Notes* Telephone Encounter - Sergo Vila RN - 03/07/2024 2:32 PM EDT Images from the original note were not included. Eye Exam 10/27/2023: Scan on 10/27/2023 10:24 AM by Provider, ISELA Domínguez: Consultation - Ophthalmology Most recent Rheumatology visit: 12/25/2023 (with Nadege Murphy) Rheumatology Care Team: None on file Recent Office Visits - This Specialty 12/25/2023 Systemic lupus erythematosus, unspecified SLE type, unspecified organ involvement status(HCC) Rheumatology Nadege Murphy DO 10/13/2023 Osteopenia, unspecified location [facility] Obdulia Ann PA-C 04/10/2023 Systemic lupus erythematosus, unspecified SLE type, unspecified organ involvement status(HCC) Rheumatology Nadege Murphy DO Upcoming Rheumatology Appointments [...] Instance) Lab Orders None documented in this encounterBlanchard Valley [facility]07-[facility] Telephone encounter Note * Telephone Encounter - Bang Spears RN - 03/04/2024 3:08 PM EDT Spoke to the patient. Refill was sent to [facility] in [place] around 2:30 pm today. Pt verbalized understanding. Bang Spears RN [facility]07-19-2024 Miscellaneous Notes* Telephone Encounter - Bang Spears RN - 03/04/2024 3:08 PM EDT Spoke to the patient. Refill was sent to [facility] in [place] around 2:30 pm today. Pt verbalized understanding. Bang Spears RN documented in this encounterBlanchard Valley Health System [facility]07-19-20[facility] Telephone encounter Note * Telephone Encounter - Kath Kenney - 03/04/2024 10:47 AM EDT Patient has two pills left Change of [...] Kath Kenney March 04, 2024 10:47 AM [facility]07-19-2024 Miscellaneous Notes* Telephone Encounter - Kath Kenney - 03/04/2024 10:47 AM EDT Patient has two pills left Change of [...] 04, 2024 10:47 AM documented in this encounterBlanchard Valley Health System [facility]07-09-20[facility] History of Present illness Narrative* Arianne Cox RN - 02/23/2024 9:32 AM EDT Since your last infusion, have [...] or open sores? No documented in this encounterBlanchard Valley Health System [facility]07-08-2024 Telephone encounter Note * Telephone Encounter - Janis Crenshaw RN - 02/22/2024 9:44 AM EDT Spoke with patient on the phone and confirmed scheduled infusion for tomorrow. Denies s/s of infection. [facility]07-08-2024 Miscellaneous Notes* Telephone Encounter - Janis Crenshaw RN - 02/22/2024 9:44 AM EDT Spoke with patient on the phone and confirmed scheduled infusion for tomorrow. Denies s/s of infection. documented in this encounterBlanchard Valley Health System [facility]07-03-20[facility] Telephone encounter Note * Telephone Encounter - Selin Frias MA - 02/17/2024 1:30 PM EDT Pharmacy calls in requesting the following refill(s): Requested Prescriptions Pending Prescriptions Disp Refills pantoprazole DR (PROTONIX) 40 mg tablet [Pharmacy Med Name: Pantoprazole Sodium 40 MG Oral Tablet Delayed Release] 180 tablet 0 Sig: Take 1 tablet by mouth twice daily Last OV:12-22-23 Next OV:05-03-24 Last Procedure:COLON 04-02-23 Next Procedure:NA Selin Frias MA [facility]07-03-2024 Miscellaneous Notes* Telephone Encounter - Selin Frias MA - 02/17/2024 1:30 PM EDT Pharmacy calls in requesting the following refill(s): Requested Prescriptions Pending Prescriptions Disp Refills pantoprazole DR (PROTONIX) 40 mg tablet [Pharmacy Med Name: Pantoprazole Sodium 40 MG Oral Tablet Delayed Release] 180 tablet 0 Sig: Take 1 tablet by mouth twice daily Last OV:12-22-23 Next OV:05-03-24 Last Procedure:COLON 04-02-23 Next Procedure:NA Selin Frias MA documented in this encounterBlanchard Valley Health System [facility]07-[facility]-2024 Miscellaneous Notes* Telephone Encounter - Liz Phillips - 02/16/2024 3:31 PM EDT Patient needs parking placard, would like to have tomorrow so she can get placards by end of week * Telephone Encounter - Wojciech Treviño DO - 02/16/2024 3:31 PM EDT Okay. Letter printed to picker and packer. Please set up a general recheck * Telephone Encounter - Liz Phillips - 02/16/2024 3:31 PM EDT Called for picker and packer documented in this encounterMemorial [facility]07-02-2024 Telephone encounter Note* Telephone Encounter - Liz Phillips - 02/16/2024 3:31 PM EDT Patient needs parking placard, would like to have tomorrow so she can get placards by end of week [facility]07-02-2024 Telephone encounter Note* Telephone Encounter - Wojciech Treviño DO - 02/16/2024 3:31 PM EDT Okay. Letter printed to picker and packer. Please set up a general recheck [facility]07-02-2024 Telephone encounter Note* Telephone Encounter - Liz Phillips - 02/16/2024 3:31 PM EDT Called for picker and packer [facility]07-02-2024 History of Present illness Narrative* Wojciech Treviño DO - 02/16/2024 9:00 AM EDT Subjective SUBJECTIVE: Patient ID: Jesus Wolf is a 68 y.o. female who presents for a Medicare Annual Wellness exam. HPI The following portions of the patient's history were reviewed and updated as appropriate: allergies, current medications, past family history, past medical history, past social history, past surgicalhistory and problem list. AWV FLOWSHEET : Lifestyle [...] you have a durable power of deputy attorney general?: (!) No Cognitive Screening Do you have [...] Return in about 1 year (around 02/15/2025). * Wojciech Treviño DO - 02/16/2024 9:00 AM EDT She is due for a general recheck of multiple problems anytime documented in this encounterMemorial Health System [facility]07-01-2024 History of Present illness Narrative* Christian Kaur, RIGGING MAN-GUIDE EXCURSION - 02/15/2024 4:30 PM EDT Subjective Jesus Wolf is a 68 y.o. female. Chief Complaint: Atrial Fibrillation 68 year old female presents today for 1 month follow up post Afib Ablation. PMH includes: MONI, Systemic lupus, in remission, on medical therapy with hydroxychloroquine, morbidobesity, hyperlipidemia, HTN, History of hypercalcemia caused by hyperparathyroidism status post parathyroidectomy last year at the [facility] with success, Ascending aortic aneurysm measured 4.6 cm from echocardiogram September 2021, follow-up echocardiogram in 2021 measured only 3.8cm, A-fib treatment history: The initial diagnosis date [...] back to NSR spontaneously. She uses a [employer] mobile device and statesshe is going in [...] by mouth once daily. Do not start beforeApr2023. 30 tablet 5 atorvastatin (Lipitor) 40 mg [...] mouth 2 times a day. Do not crush,chew, or split. venlafaxine XR (Effexor-XR) 150 mg [...] she should go to the ED or havean office visit. Patient expresses understanding, all questions asked and answered. Continue current medications, until changes as above prior to her watchman Follow-up with me in 2 to 3 months and we will discuss when to stop her amiodarone. Patient can call the office with any questions or concerns. documented in this encounterSelect [facility] Work Phone: 1(778) 141-364805-24-2024 Telephone encounter Note* Telephone Encounter - Shae Burdick MA - 01/08/2024 11:26 AM EDT Last OV 12/22/2023 Next OV 05/03/2024 Last procedure 04/02/23-colonoscopy, EGD 09/12/21 No upcoming procedures scheduled Pharmacy calls in requesting the following refill(s): Requested Prescriptions Pending Prescriptions Disp Refills pantoprazole DR (PROTONIX) 40 mg tablet [Pharmacy Med Name: Pantoprazole Sodium 40 MG Oral Tablet Delayed Release] 180 tablet 0 Sig: TAKE 1 BY MOUTH TWICE DAILY [facility]24 Miscellaneous Notes* Telephone Encounter - Shae Burdick MA - 01/08/2024 11:26 AM EDT Last OV 12/22/2023 Next OV 05/03/2024 Last procedure 04/02/23-colonoscopy, EGD 09/12/21 No upcoming procedures scheduled Pharmacy calls in requesting the following refill(s): Requested Prescriptions Pending Prescriptions Disp Refills pantoprazole DR (PROTONIX) 40 mg tablet [Pharmacy Med Name: Pantoprazole Sodium 40 MG Oral Tablet Delayed Release] 180 tablet 0 Sig: TAKE 1 BY MOUTH TWICE DAILY documented in this encounterBlanchard [facility] Discharge instructions* Discharge Instructions* John Mora PA-C - 01/05/2024 8:22 AM EDT INSTRUCTIONS AFTER ABLATION PROCEDURE: * You will need to continue blood thinner (Eliquis) until instructed otherwise. It is important notto interrupt blood thinner for any reason (other than an emergency) during the first 30 days after ablation. * You will be on Pantoprazole (a heartburn medicine) for 4 weeks to protect the esophagus as it canbecome irritated with ablation. It is very important that you take this medication. * All other medications will generally remain the same unless you are told otherwise. Resume takingyour home medications today (including blood thinner) as [...] pericardial chest pain from the ablation and isgenerally not of concern. It should resolve within a week although it might increase for a day or so after the ablation. * If you develop unexplained fevers exceeding 100 degrees anytime within the first 3 weeks post-ablation, you need to contact the office. Low grade fevers of around 99 degrees are common in the firstday or so post-ablation. * Atrial fibrillation (AFib) can recur in all patients who undergo this ablation for up to 4-8 weeks post-ablation. The ablation itself can cause inflammation (pericarditis) in the atria and this cancause AFib. Some patients will actually experience an [...] up with your primary care physician, primary construction equipment overhauler, and any other specialists you normally see. [...] It is recommended that a responsible adult bewith you for the first 24 hours. DO NOT drink any alcoholic drinks or take any non-prescriptive medications that contain alcohol forthe first 24 hours. DO NOT make any [...] minimal inflammation. If you have any concerns, youmay contact the EP Lab or if any of these symptoms become excessive, contact your research assistant professor or go to the emergency room. No tub baths, soaking, hot tubs, or swimming for one week. May shower the next day after your procedure. Other Instructions: If you have any questions about the effects of the sedative drugs or groin care, call the physicianwho performed your procedure. FOLLOW UP: 1) Primary care physician 2 weeks--call to schedule 2) Christian Kaur CNP ( Electrophysiology) 1 month after ablation Fish And Wildlife Technician will notify you of appointment. If you haven't heard in 1 week, please call [phone] documented in this encounterSelect [facility] Work Phone: 1(689) 392-575105-21-2024 Hospital Note* Hospital Course - John Mora PA-C - 01/05/2024 8:21 AM EDT [facility] Work Phone: [phone]) [phone] Miscellaneous Notes* Hospital Course - John Mora PA-C - 01/05/2024 8:21 AM EDT documented in this encounterSelect [facility] Work Phone: [phone] History of Present illness Narrative* Charu Chavez, PharmD - 01/05/2024 7:49 AM EDT Pharmacy Medication History Review Jesus Wolf is a 68 y.o. female admitted for Persistent atrial fibrillation (Multi). Pharmacy reviewed the patient's sefrl-wt-atujjxpjz medications and allergies for accuracy. The list below reflects the updated SPACE PHYSICIST list. Comments regarding how patient may be [...] clarification and justification. Allergies Reviewed by Charu Chavez PharmD on 01/05/2024 Severity Reactions Comments Codeine Not Specified Unknown Diphth,pertus(acell),tetanus Not Specified Unknown Dofetilide Not Specified Unknown Epinephrine Not Specified Unknown Iodinated Contrast Media Not Specified Unknown Prochlorperazine Not Specified Unknown Sulfa (sulfonamide Antibiotics) Not Specified Swelling, Nausea/vomiting, Unknown Tetanus Vaccines And Toxoid Not Specified Unknown Patient was unable to be assessed for M2B at discharge. Pharmacy has been updated to [facility]. M2B service not offered prior to surgery, please reassess prior to patient discharge if Meds to Beds is desired. Sources used to complete the med history include: Patient interview - had list of medications/ Pharmacy - [facility]/ chart review - Cardiology visit 11/16/23, [facility] clinical summary Charu Chavez PharmD Transitions of Care Pharmacist Meds Ambulatory and Retail Services Please reach out via Secure Chat for questions, or if no response call [employer] or [employer] documented in this [facility] Work Phone: [phone]) 176-775605-21-2024 History and physical note* Khoa Key MD - 01/05/2024 7:17 AM EDT History Of Present Illness Jesus Wolf is a 68 y.o. female with PMH of MONI, Systemic lupus, in remission, on medical therapy with hydroxychloroquine. Managed by the [facility], morbid obesity, hyperlipidemia, HTN, History of hypercalcemia caused by hyperparathyroidism [facility], Ascending aortic aneurysm measured 4.6 [...] back to NSR spontaneously. She uses a [employer] mobile device and statesshe is going in [...] care of this patient. Khoa Key MD [facility] Work Phone: [phone]) [phone] History and physical note* Khoa Key MD - 01/05/2024 7:17 AM EDT History Of Present Illness Jesus Wolf is a 68 y.o. female with PMH of MONI, Systemic lupus, in remission, on medical therapy with hydroxychloroquine. Managed by the [facility], morbid obesity, hyperlipidemia, HTN, History of hypercalcemia caused by hyperparathyroidism status [facility], Ascending aortic aneurysm measured 4.6 [...] back to NSR spontaneously. She uses a [employer] mobile device and statesshe is going in [...] patient. 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 Frances/Diverticulosis/Hemorrhoids/ Ulcerative Colitis/Rpt in 2 yrs. COLONOSCOPY SCREENING 03/2023 EGD EUS 01/11/2020 [facility] LASIK Right prior to [...] every 4 hours as needed for pain. vuhqdbi-eadzgewtj-yovbmsp D3 500 mg-5 mcg (200 unit) per [...] not taking: Reported on 10/13/2023) MV with Pdl-Eufcqkhb-Nrkbwg (CENTRUM SILVER) 0.4 mg-300 mcg- 250 mcg [...] imaging reports, if any were reviewed by me LABS Creatinine (mg/dL) Date Value 12/28/2023 1.07 [...] 5.5 4.3 - 5.6 % Final Comment: [place] [employer] guidelines indicate that patients with HgbA1c in the range 5.7-6.4% are at increased risk for development of diabetes, and intervention by lifestyle modification may be beneficial. HgbA1c greater or equal to 6.5% is considered diagnostic of diabetes. 03/09/2019 5.5 4.3 - 5.6 % Final Comment: [place] [employer] guidelines indicate that patients with [...] Where positive and clinically warranted, follow-up using disease- specific testing is recommended. Low positive titers are not uncommon with advanced age, certain chronic infections, and malignancies among others. Test methodology: Indirect fluorescence immunoassay (IFA) using HEp-2 cells. IMAGING No recent imaging results URINE ANALYSIS Urine chemistry findings reviewed pH, Urine Date Value Ref Range Status 12/28/2023 6.0 <8.5 Final Specific [place], Ur Date Value Ref Range Status 12/28/2023 [...] stable in last 2-3 years - noted shewas on celebrex which was stopped about a year, additionally has history of hypertension, HFpEF andatrial fibrillation and was on lasix and spironolactone [...] have been copied from previous encounters, if any,but have been updated as necessary. Patient is aware to call or communicate via [employer] with any questions/ concerns Also discussed ER evaluation if there are any concerning symptoms, or uncontrolled blood pressure I spent a total of 45 minutes on the date of the service which included preparing to see the patient, vayx-ok-lxuo patient care, completing clinical documentation, obtaining and/or reviewing separately obtained history, performing a medically appropriate examination, counseling and educating the pat ient/family/caregiver, and ordering medications, tests, or procedures. SIGNATURE: Radu Salazar MD, FACP, NATE PATIENT NAME: Jesus Wolf DATE: December 29, 2023 TIME: 9:27 AM OFFICE NUMBER: [phone] documented in this encounterBl[facility]ard [facility] Evaluation note* Diagnosis Stage 3a chronic kidney disease (HCC)- Primary Membranous glomerulonephritis Nephritis and nephropathy, not specified as acute or chronic, with lesion of membranous glomerulonephritis Lupus nephritis, ISN/RPS class V (HCC) Screening for genitourinary condition Screening for other and unspecified genitourinary condition Hypertension, unspecified type documented in this encounter [facility]05-10-2024 Telephone encounter Note* Telephone Encounter - Coco Miles - 12/25/2023 3:46 PM EDT Patient has been scheduled for 02/23/2024 [facility]05-10-2024 Telephone encounter Note* Telephone Encounter - Coco Miles - 12/25/2023 3:46 PM EDT ----- Message from Carley Reich sent at 12/25/2023 11:43 AM EDT ----- In Edi Team, Dr. Murphy is changing her benlysta infusions to every 2 months. Could you please reach out to this patient and move up her 03/17/24 infusion to the first week in February? Thank you! ----- Message ----- From: Nadege Murphy DO Sent: 12/25/2023 10:17 AM EDT To: Leelee Ramires [facility]; # Taty, can we please increase these infusions to every 2 months? Can we also give her 40 mg IVMP and NOT 60? She goes to [facility] Thank you! [facility]05-10-2024 Miscellaneous Notes* Telephone Encounter - Coco Miles - 12/25/2023 3:46 PM EDT Patient has been scheduled for 02/23/2024 * Telephone Encounter - Coco Miles - 12/25/2023 3:46 PM EDT ----- Message from Carley Reich sent at 12/25/2023 11:43 AM EDT ----- In Edi Team, Dr. Murphy is changing her benlysta infusions to every 2 months. Could you please reach out to this patient and move up her 03/17/24 infusion to the first week in February? Thank you! ----- Message ----- From: Nadege Murphy DO Sent: 12/25/2023 10:17 AM EDT To: Leelee Ramires [facility]; # Taty, can we please increase these infusions to every 2 months? Can we also give her 40 mg IVMP and NOT 60? She goes to [facility] Thank you! documented in this encounterBl[facility]05[facility] History of Present illness Narrative* Nadege Murphy - 12/25/2023 10:00 AM EDT Images from the original note were not included. [facility] DEPARTMENT OF RHEUMATIC [...] TUNNEL RIGHT WRIST surgical correction COLONOSCOPY 05/10/2019 [facility] COLONOSCOPY GEN ANES 07/23/2020 Dr. Frances/Diverticulosis/Hemorrhoids/ Ulcerative Colitis/Rpt in 2 yrs. COLONOSCOPY SCREENING 03/2023 EGD EUS 01/11/2020 [facility] LASIK Right prior to [...] every 4 hours as needed for pain. tblcquh-ibomtectd-swplmjw D3 500 mg-5 mcg (200 unit) per tablet Take 1 tablet by mouth three times daily. MV with Wzo-Hkvetfsq-Qrlmwd (CENTRUM SILVER) 0.4 mg-300 mcg- 250 mcg [...] Murphy D.O. Rheumatology Staff documented in this encounterBlanchard Valley Health System [facility]05[facility] History of Present illness Narrative* Janis [...] or open sores? No documented in this encounterBlanchard Valley Health System [facility]05-07[facility]24 Instructions* Patient Instructions* Dione Frances MD - 12/22/2023 11:35 AM EDT Increase colestipol 3 pills twice a day documented in this encounterBlanchard Valley Health System [facility] History and physical note * Dione [...] Abs Lymph 1.00 - 4.00 k/uL 1.28 Wagoner% % 9.7 Abs Wagoner <0.87 k/uL 0.63 Eosin% % 2.9 Abs [...] TUNNEL RIGHT WRIST surgical correction COLONOSCOPY 05/10/2019 [facility] COLONOSCOPY GEN ANES 07/23/2020 Dr. Frances/Diverticulosis/Hemorrhoids/ Ulcerative Colitis/Rpt in 2 yrs. COLONOSCOPY SCREENING 03/2023 EGD EUS 01/11/2020 [facility] LASIK Right prior to 1999 MRI PANC/JEANIE WO/W IVCON 12/20/2019 OVARIAN CYSTECTOMY PAST SURGICAL HISTORY OF 07/2013 bilateral foot procedure, Maverick PAST SURGICAL HISTORY OF 2018,2019 Ablation X2 [...] every 4 hours as needed for pain. hzbqido-sqcvtxond-ccjmxsb D3 500 mg-5 mcg (200 unit) per tablet Take 1 tablet by mouth three times daily. MV with Kbi-Fhffrubh-Vglhon (CENTRUM SILVER) 0.4 mg-300 mcg- 250 mcg [...] No history of dysuria, frequency or incontinence APPLICATIONS SYSTEM ANALYST: Negative for abnormal vaginal bleeding, abnormal [...] This note was partially generated using the Technology Keiretsu voice recognition system, there may be some incorrect words, spellings, and punctuation that were not noted in checking the note before saving [facility]05-07-2024 History and physical note* Dione Frances [...] Abs Lymph 1.00 - 4.00 k/uL 1.28 Wagoner% % 9.7 Abs Wagoner <0.87 k/uL 0.63 Eosin% % 2.9 Abs [...] TUNNEL RIGHT WRIST surgical correction COLONOSCOPY 05/10/2019 [facility] COLONOSCOPY GEN ANES 07/23/2020 Dr. Frances/Diverticulosis/Hemorrhoids/ Ulcerative Colitis/Rpt in 2 yrs. COLONOSCOPY SCREENING 03/2023 EGD EUS 01/11/2020 [facility] LASIK Right prior to 1999 MRI PANC/JEANIE WO/W IVCON 12/20/2019 OVARIAN CYSTECTOMY PAST SURGICAL HISTORY OF 07/2013 bilateral foot procedure, Maverick PAST SURGICAL HISTORY OF Ablation X2 TONSILLECTOMY [...] every 4 hours as needed for pain. submvnn-ybppbwgpc-mggewkd D3 500 mg-5 mcg (200 unit) per tablet Take 1 tablet by mouth three times daily. MV with Hqd-Kwlaarfk-Lxrnje (CENTRUM SILVER) 0.4 mg-300 mcg- 250 mcg [...] No history of dysuria, frequency or incontinence APPLICATIONS SYSTEM ANALYST: Negative for abnormal vaginal bleeding, abnormal [...] This note was partially generated using the Technology [employer] voice recognition system, there may be some incorrect words, spellings, and punctuation that were not noted in checking the note before saving documented in this encounterBlanchard Valley Health [facility]04[facility] Telephone encounter Note * Telephone Encounter - Bang Spears RN - 12/15/2023 10:09 AM EDT Pharmacy escripts requesting the following refill: Requested Prescriptions Pending Prescriptions Disp Refills ferrous sulfate (IRON) 325 mg (65 mg iron) tablet 90 tablet 3 Sig: Take 1 tablet by mouth once daily. Please review and advise. Bang Spears RN [facility]04-30-2024 Miscellaneous Notes* Telephone Encounter - Bang Spears RN - 12/15/2023 10:09 AM EDT Pharmacy escripts requesting the following refill: Requested Prescriptions Pending Prescriptions Disp Refills ferrous sulfate (IRON) 325 mg (65 mg iron) tablet 90 tablet 3 Sig: Take 1 tablet by mouth once daily. Please review and advise. Bang Spears RN documented in this encounterBlanchard Valley Health System [facility]04[facility]23[facility] History of Present illness Narrative* Beverly Franco DPM - 12/08/2023 11:01 AM EDT Images from [...] with uninfected necrosis SLE (systemic lupus erythematosus) ([facility]) Sleep apnea 07/29/2012 PAST SURGICAL HISTORY Procedure Laterality Date APPENDECTOMY CARPAL TUNNEL RIGHT WRIST surgical correction COLONOSCOPY 05/10/2019 [facility] COLONOSCOPY GEN ANES 07/23/2020 Dr. Frances/Diverticulosis/Hemorrhoids/ Ulcerative Colitis/Rpt in 2 yrs. COLONOSCOPY SCREENING 03/2023 EGD EUS 01/11/2020 [facility] LASIK Right prior to 1999 MRI PANC/JEANIE WO/W IVCON 12/20/2019 OVARIAN CYSTECTOMY PAST SURGICAL HISTORY OF 07/2013 bilateral foot procedure, Maverick PAST SURGICAL HISTORY OF Ablation X2 TONSILLECTOMY [...] every 4 hours as needed for pain. gofiilv-gbnpitfdp-qituamn D3 500 mg-5 mcg (200 unit) per tablet Take 1 tablet by mouth three times daily. MV with Jcd-Qczmmlly-Dsmlur (CENTRUM SILVER) 0.4 mg-300 mcg- 250 mcg [...] options conservative and surgical, prognosis, short and half-way expectations, and benefit, and potential risks and [...] AM Beverly Franco DPM documented in this encounterBlanchard Valley Health System [facility]04[facility]11[facility]24 Procedure [facility]04-01-2024 History of Present illness Narrative* [...] medical therapy with hydroxychloroquine. Managed by the [facility], morbid obesity, hyperlipidemia, HTN, History of hypercalcemia caused by hyperparathyroidism status post parathyroidectomy last year at the [facility] with success, Ascending aortic aneurysm measured 4.6 [...] back to NSR spontaneously. She uses a [employer] mobile device and statesshe is going in [...] which requires esophageal intubation with anesthesia. MD Chapincito Brown Master Clinician of Cardiovascular [place]. [facility] [place]. Director of Electrophysiology Center visual and stock associate. [employer]. documented in this encounterUnMercy Health St[facility] Work Phone: [phone]) [phone] History of Present illness Narrative* Kalyn Anthony [...] m (5' 7 ) documented in this encounterUnMercy Health St. [facility] Work Phone: [phone] History of Present illness Narrative* Yuriy Conway [...] radiofrequency ablation with pulmonary vein isolation at [facility] in 2019. Patient seems to be in [...] was normal. Recent lab data from the [facility] werereviewed creatinine 1.0. 2. Sleep apnea, unable to utilize CPAP machine. She utilizes oxygen at night. 3. Systemic lupus, in remission, on medical therapy with hydroxychloroquine. Managed by the [facility] 4. Morbid obesity, patient is trying to [...] status post parathyroidectomy last year at the [facility] with success 10. Ascending aortic aneurysm measured 4.6 cm from echocardiogram September 2021, follow-up echocardiogram in 2021 measured only 3.8 cm Yuriy Conway MD, [facility] Review of Systems Cardiovascular: Positive for chest [...] risk medication use 3. 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 Obstructive sleep apnea 6. BMI 40.0-44.9, adult ([facility]) 7. Never smoked any substance 8. Systemic lupus erythematosus, unspecified SLE type, unspecified organ involvement status ([facility]) Scribe Attestation By signing my name below, Fercho Sharma LPN, Scribe attest that this documentation has [...] exam, discussion and plan. documented in this encounterSelect [facility] Work Phone: 1(624) 622-697303-14-2024 Instructions* Patient Instructions* Kalyn Anthony LPN - [...] time of your visit. documented in this encounterSelect Medical Specialty [facility] Work Phone: [phone]) [phone] Miscellaneous Notes* Telephone Encounter - Anastasiya Jackman - 10/27/2023 3:34 PM EDT [facility] [facility] [place] [facility]. Scanned in chart for review. documented in this encounterBlanchard Valley Health System [facility]03[facility] Miscellaneous Notes* Allied Health - Franck [...] PATIENT PRESENTS WITH AN IMPLANTABLE OR ATTACHED HAND MODEL: No RADIOLOGY DEPARTMENT: MR; Exam(s) Completed: Body: Pancreas/Biliary PERIPHERAL IV DATA: Site assessment: Clean,Dry and Intact, Site disposition Discontinued SIGNED BY: RT Monica(Sandra) October 23, 2023 12:45 PM documented in this encounterBlanchard Valley Health System [facility]03-08[facility] Nurse Note* Chantelle Grace RN - [...] 2023 TIME: 11:37 AM documented in this encounterBlanchard Valley Health System [facility]02-27[facility] History of Present illness Narrative* Obdulia Ann PA-C - 10/13/2023 10:31 AM EST Images from the original note were not included. Osteoporosis and Metabolic Bone Disease Date of Service: 10/13/2023 Patient: Jesus Wolf Medical Record: [id number] Primary Care Physician: Wojciech Treviño MD, DO [...] for L foot due to severe OA. Head Orthopedic Team Physician is trailing 6 weeks in the boot. If symptoms improve, supervisor component assembler will prescribe a brace otherwise will discuss [...] URI . March 2020 admitted with CHF AAjay victor on Eliquis DX 1998 ulcerative colitis on [...] use (Comment: Daily steroid uses from about 1439-7464) Previous use No rheumatoid arthritis Secondary osteoporosis [...] Mar 13 2022 3:21PM Laurie 0804 - DXA - AXIAL SKELETON -NB / PROCEDURE REASON: Asymptomatic postmenopausal status * * * * Physician Interpretation * * * * EXAMINATION: DXA BONE DENSITOMETRY BD DXA - AXIAL SKELETON -NB CLINICAL HISTORY: DIAGNOSTIC Asymptomatic postmenopausal status . DXA Model: Paperlit (S/N: [id number]) SITE SCANNED: Lumbar Spine, Left Hip, & [...] should take calcium, the recommended dose is 8238-7628 mg per day along with 800-1000 IU vitamin D (some patients may require higher doses of vitamin D). LIMITATIONS: - Degenerative changes in the spine may artificially increase bone mass and make the reading unreliable FOLLOW-UP: - 2-years cc. Dr. Hardin Implant Polisher: findin Transcribe Date/Time: Mar 13 2022 3:34P [...] TUNNEL RIGHT WRIST surgical correction COLONOSCOPY 05/10/2019 [facility] COLONOSCOPY GEN ANES 07/23/2020 Dr. Frances/Diverticulosis/Hemorrhoids/ Ulcerative Colitis/Rpt in 2 yrs. COLONOSCOPY SCREENING 03/2023 EGD EUS 01/11/2020 [facility] LASIK Right prior to [...] - Calcium Replacement/Vitamin D Combinations Start End ztaeaat-dkmqgmxtr-uvzujim D3 500 mg-5 mcg (200 unit) per tablet 08/27/2022 -- Sig - Route: Take 1 tablet by mouth three times daily. - ORAL Class: OTC Vitamins - D Derivatives Start End Cholecalciferol, Vitamin D3, 2,000 unit cap -- Sig - Route: Take by mouth once daily. - ORAL Class: Historical Med Multivitamin and Mineral Combinations Start End MV with Ijz-Omlhpurn-Yevjau (CENTRUM SILVER) 0.4 mg-300 mcg- 250 mcg tab -- Sig - Route: Take 1 tablet by mouth once daily. - ORAL Class: Historical Med Minerals and Electrolytes - Calcium Replacement/Vitamin D Combinations Start End rvbjmtl-eertgddad-nsfworr D3 500 mg-5 mcg (200 unit) per [...] Take 1 tablet by mouth once daily. liemivf-nevnzcqzr-tswkabf D3 500 mg-5 mcg (200 unit) per tablet Take 1 tablet by mouth three times daily. 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 Frances/Diverticulosis/Hemorrhoids/ Ulcerative Colitis/Rpt in 2 yrs. COLONOSCOPY SCREENING 03/2023 EGD EUS 01/11/2020 [facility] LASIK Right prior to [...] every 4 hours as needed for pain. mattfex-amwzmtzyd-dhryycc D3 500 mg-5 mcg (200 unit) per tablet Take 1 tablet by mouth three times daily. MV with Zml-Herdluaq-Smelsr (CENTRUM SILVER) 0.4 mg-300 mcg- 250 mcg [...] navicular cuneiform articulation left, 1-3 right with ylej-yj-wzurwzxvq space loss and periarticular subchondral sclerotic changes, cystic changes left Assessment/Plan ASSESSMENT Diagnosis (L84) Pre-ulcerative calluses (primary encounter diagnosis) (M19.072) Osteoarthritis of midtarsal joint of left foot (M19.071) Osteoarthritis of midtarsal joint of right foot No orders found for this visit on 10/09/23. PLAN Reviewed complaint, pathology, etiology, x-rays, anatomy, treatment options conservative and surgical, prognosis, short and half-way expectations, associated with each complaint, finding, related [...] PM Beverly Franco DPM documented in this encounterBlanchard Valley [facility]02-15-2024 History of Present illness Narrative* Janis [...] or open sores? No documented in this encounterBlanchard Valley Health System [facility]02-14-2024 Miscellaneous Notes* Telephone Encounter - Beba Liriano - 09/30/2023 4:03 PM EST Patient calling asking about imaging for pancreas. She was due 07/2023. Asking for order to be placed # [phone] documented in this encounterBlanchard Valley Health System [facility]02-14-2024 Miscellaneous Notes* Telephone Encounter - Janis Crenshaw RN - 09/30/2023 1:46 PM EST Spoke with patient on phone and confirmed patient will be in tomorrow for scheduled infusion. * Telephone Encounter - Janis Crenshaw RN - 09/30/2023 10:09 AM EST LMOM for patient to call back and confirm scheduled infusion. documented in this encounterBlanchard Valley Health System [facility]02-01-2024 History of Present illness Narrative* Yuriy [...] stable on medical therapy followed by the [facility]. She has been chronically anticoagulated with Eliquis and has been compliant ASSESSMENT AND PLAN: 1. Paroxysmal atrial fibrillation, status post radiofrequency ablation with pulmonary vein isolation at [facility] in 2019. Now she is back in [...] remission, on medical therapy. Managed by the [facility] 4. Morbid obesity, patient is trying to [...] status post parathyroidectomy last year at the [facility] with success 10. Ascending aortic aneurysm measured 4.6 cm from echocardiogram September 2021, follow-up echocardiogram in 2021 measured only 3.8 cm Yuriy Conway MD, [facility] Review of Systems All other systems reviewed [...] of Yuriy Conway MD. documented in this encounterSelect [facility] Work Phone: 1(625) 647-250302-01-2024 Instructions* Patient Instructions* Bsuter Clay MA - 09/17/2023 8:50 AM EST Please bring all medicines, vitamins, and herbal supplements with you when you come to the office. Prescriptions will not be filled unless you are compliant with your follow up appointments or have a follow up appointment scheduled as per instruction of your physician. Refills should be requested at the time of your visit. documented in this encounterSelect Medical Specialty [facility] Work Phone: 1(887) 757-384301-16-2024 History of Present illness Narrative* Cha Staley APRN-CONSUEOL - 09/01/2023 1:00 PM EST Subjective Patient [...] morning. Dispense: 7 tablet; Refill: 0 Cha Staley APRN-CONSUELO 09/01/23 1350 documented in this encounterMemorial [facility]-2023 Miscellaneous Notes* Telephone Encounter - Lisa Ramos - 07/20/2023 2:59 PM EST Spoke to patient and she is scheduled for bilateral cortisone injection at [facility] for 08/03/23 documented in this encounterBlanchard Valley Health System [facility]11-21-2023 Miscellaneous Notes* Telephone Encounter - Olga Amado - 07/07/2023 3:24 PM EST [facility] requesting call back to schedule (surgery)with Dr. Jones. Left direct number to return call.[phone] documented in this encounterBlanchard Valley Health System [facility]11-16-2023 History of Present illness Narrative* Beverly Franco DPM - 07/02/2023 11:37 AM EST SERVICE DATE: July 02, 2023 PCP: Wojciech Treviño MD, DO Subjective Patient ID: Jesus is a 68 year old female. Patient presents today with complaint of pain in her left midfoot on the medial side which started several weeks ago while she is [place] [employer] [place] and on her feet an extensive amount [...] TUNNEL RIGHT WRIST surgical correction COLONOSCOPY 05/10/2019 [facility] COLONOSCOPY GEN ANES 07/23/2020 Dr. Frances/Diverticulosis/Hemorrhoids/ Ulcerative Colitis/Rpt in 2 yrs. COLONOSCOPY SCREENING 03/2023 EGD EUS 01/11/2020 [facility] LASIK Right prior to [...] every 4 hours as needed for pain. hvrsuhm-sqbjbpbvh-nfvznkn D3 500 mg-5 mcg (200 unit) per tablet Take 1 tablet by mouth three times daily. MV with Mxk-Figlkdzb-Ematyl (CENTRUM SILVER) 0.4 mg-300 mcg- 250 mcg [...] left X-Ray: Severe midfoot osteoarthritic changes with dyab-lp-hydc appearance, periarticular subchondral sclerotic and cystic changes [...] conservative and surgical, prognosis, short and long term care social worker expectations, and benefit, and potential risks associated [...] AM Beverly Franco DPM documented in this encounterBlanchard Valley Health System [facility]11-15-2023 History of Present illness Narrative* Coco [...] or open sores? No documented in this encounterBlanchard Valley Health System [facility]10-31-2023 Miscellaneous Notes* Telephone Encounter - Bang Spears RN - 06/16/2023 11:54 AM EDT Pharmacy escripts requesting the following refill: Requested Prescriptions Pending Prescriptions Disp Refills pantoprazole DR (PROTONIX) 40 mg tablet [Pharmacy Med Name: PANTOPRAZOLE SOD DR 40 MG TAB] 60 tablet 3 Sig: take 1 tablet by mouth twice a day Please review and advise. Bang Spears RN documented in this encounterBlanchard Valley Health System [facility]10-26-2023 Miscellaneous Notes* Telephone Encounter - Heather Gruber PA-C - 06/11/2023 4:06 PM EDT Prescription sent to the pharmacy Heather Gruber PA-C * Telephone Encounter - Agatha Wing - 06/10/2023 11:09 AM EDT Patient needs to have a dental procedure and needs an antibiotic. Patient states you are the last orthopedic surgeon she seen. Please send prescription to the [facility] in [facility]. patient would like to be notified when prescription has been sent in. Please advise documented in this encounterBlanchard Valley Health System [facility]09-01-2023 Miscellaneous Notes* Telephone Encounter - Bang Spears RN - 04/17/2023 9:02 AM EDT Pharmacy escripts requesting the following refill: Requested Prescriptions Pending Prescriptions Disp Refills colestipol (COLESTID) 1 gram tablet [Pharmacy Med Name: COLESTIPOL HCL 1 GM TABLET] 360 tablet 3 Sig: TAKE 2 TABLETS BY MOUTH TWICE A DAY Please review and advise. Bang Spears RN documented in this encounterBlanchard Valley Health System [facility]08-30-2023 History and physical note * Dioen Frances MD - 04/15/2023 9:20 AM EDT FOLLOW UP OFFICE VISIT REASON FOR VISIT: follow up UC HPI: Jesus Wolf is a 68 year old female who presents for follow up UC. After colonoscopy 2 weeks ago, she was in the ER several times with migraine headaches. She was in the [facility] on vacation. It is likely these were [...] Abs Lymph 1.00 - 4.00 k/uL 2.04 Wagoner% % 11.0 Abs Wagoner <0.87 k/uL 0.92 (H) Eosin% % 3.1 [...] TUNNEL RIGHT WRIST surgical correction COLONOSCOPY 05/10/2019 [facility] COLONOSCOPY GEN ANES 07/23/2020 Dr. Frances/Diverticulosis/Hemorrhoids/ Ulcerative Colitis/Rpt in 2 yrs. EGD EUS 01/11/2020 [facility] LASIK Right prior to 1999 MRI PANC/JEANIE WO/W IVCON 12/20/2019 [facility]STECTOM[facility] PAST SURGICAL HISTORY OF 07/2013 bilateral foot procedure, [place] PAST SURGICAL HISTORY OF Ablation X2 TONSILLECTOMY [...] every 4 hours as needed for pain. owdymlm-fdhgwnetj-mfbfvbm D3 500 mg-5 mcg (200 unit) per tablet Take 1 tablet by mouth three times daily. MV with Lqv-Uguufpgi-Vlueqv (CENTRUM SILVER) 0.4 mg-300 mcg- 250 mcg [...] No history of dysuria, frequency or incontinence APPLICATIONS SYSTEM ANALYST: Negative for abnormal vaginal bleeding, abnormal [...] This note was partially generated using the Technology Keiretsu voice recognition system, there may be some incorrect words, spellings, and punctuation that were not noted in checking the note before saving documented in this encounterBlanchard Valley Health System [facility]08-30-2023 Instructions* Patient Instructions* Dione Frances MD - 04/15/2023 9:13 AM EDT Continue mesalamine Continue canasa suppositories (can go down to as needed eventually) Continue protonix Continue colestipol documented in this encounterBlanchard Valley Health System [facility]08-25-2023 History of Present illness Narrative* Nadege Murphy DO - 04/10/2023 9:30 AM EDT Images from the original note were not included. [facility] DEPARTMENT OF RHEUMATIC [...] TUNNEL RIGHT WRIST surgical correction COLONOSCOPY 05/10/2019 [facility] COLONOSCOPY GEN ANES 07/23/2020 Dr. Frances/Diverticulosis/Hemorrhoids/ Ulcerative Colitis/Rpt in 2 yrs. EGD EUS 01/11/2020 [facility] LASIK Right prior to [...] 4 hours as needed for pain.^Disp: ^Rfl: aoxdklb-ljzvtxpbq-mhtskoc D3 500 mg-5 mcg (200 unit) per tablet^Take 1 tablet by mouth three times daily.^Disp: ^Rfl: MV with Gsg-Hnruvaje-Ppqgbu (CENTRUM SILVER) 0.4 mg-300 mcg- 250 mcg [...] Murphy D.O. Rheumatology Staff documented in this encounterBlanchard Valley Health System [facility]08-23-2023 Miscellaneous Notes* Telephone Encounter - Bang [...] Encounter - Bang Spears RN - 04/08/2023 11:44 AM EDT ----- Message from Dione Frances MD sent at 04/06/2023 11:12 AM EDT ----- Normal ileal biopsies and normal colon biopsies except for the rectum, continue Lialda, recommend rectal topical therapy which she prefers suppository or enema? documented in this encounterBlanchard Valley Health System [facility]08-17-2023 History and physical note * Dione [...] 2023 TIME: 7:38 AM documented in this encounterBlanchard Valley Health System [facility]08-03-2023 History of Present illness Narrative* Chantelle [...] or open sores? No documented in this encounterBlanchard Valley Health System [facility]08-02-2023 Miscellaneous Notes* Telephone Encounter - Coco Guzman RN - 03/18/2023 3:15 PM EDT Spoke with pt; confirmed infusion for tomorrow. Denies s/sx of infection or antibiotics at this time. documented in this encounterBlanchard Valley Health System [facility]07-31-2023 Miscellaneous Notes* Telephone Encounter - Bang Spears RN - 03/16/2023 10:32 AM EDT Pharmacy escripts requesting the following refill: Requested Prescriptions Pending Prescriptions Disp Refills Mesalamine (LIALDA) 1.2 gram EC tablet [Pharmacy Med Name: MESALAMINE DR 1.2 GM TABLET] 360 tablet 1 Sig: take 4 tablets by mouth once daily Please review and advise. Bang Spears RN documented in this encounterBlanchard Valley Health System [facility]07-27-2023 History of Present illness Narrative* Beverly Franco J, DPM - 03/12/2023 9:47 AM EDT SERVICE [...] Vitamin D Deficiency Sle (Systemic Lupus Erythematosus) ([facility]) Fibromyalgia Sleep Apnea Encounter for Long-Term [...] with uninfected necrosis SLE (systemic lupus erythematosus) ([facility]) Sleep apnea 07/29/2012 PAST SURGICAL HISTORY Procedure Laterality Date APPENDECTOMY CARPAL TUNNEL RIGHT WRIST surgical correction COLONOSCOPY 05/10/2019 [facility] COLONOSCOPY GEN ANES 07/23/2020 Dr. Frances/Diverticulosis/Hemorrhoids/ Ulcerative Colitis/Rpt in 2 yrs. EGD EUS 01/11/2020 [facility] LASIK Right prior to 1999 MRI PANC/JEANIE WO/W IVCON 12/20/2019 [facility] CYSTECTOMY PAST SURGICAL HISTORY OF 07/2013 bilateral foot procedure, [place] PAST SURGICAL HISTORY OF Ablation X2 TONSILLECTOMY [...] 4 hours as needed for pain.^Disp: ^Rfl: xoihdjn-vdipihvoi-exkeezs D3 500 mg-5 mcg (200 unit) per tablet^Take 1 tablet by mouth three times daily.^Disp: ^Rfl: MV with Rdo-Hlccndoc-Amhtpr (CENTRUM SILVER) 0.4 mg-300 mcg- 250 mcg [...] Medical image was obtained today and compared eypf-xa-perf with previous image, findings and progress were discussed with patient. FOLLOW-UP: 10 weeks SIGNATURE: Beverly Franco DPM PATIENT NAME: Jesus Wolf DATE: March 12, 2023 TIME: 9:48 AM Beverly Franco DPM documented in this encounterBlanchard Valley Health System [facility]07-05-2023 Miscellaneous Notes* Telephone Encounter - Mariana Sutton Vanessa - 2023 3:08 PM EDT Spoke to patient offered 03/09 or 03/23 at [place] patient declined as she has commitments on those datesas well. Patient is on wait list * Telephone Encounter - Sandra Irving Pss - 2023 2:55 PM EDT Jesus Ezio Wolf is calling Dione Frances MD today with concern regarding Appointment. Patient hoping to be able to have this done in [place], and when the soonest that would be. When I tried rescheduled it denied me. Please advise and call patient. Thank you! Patient has been identified by name and birthdate. Person calling: self Call patient at: at home [phone] (home) [phone] (cell) Was an appointment scheduled: No Closing statement: Results or non-symptom based questions: Thank you for calling [facility], your call will be returned within the next business day. Sandra Irving Pss documented in this encounterBlanchard Valley Health System [facility]07-05-2023 Miscellaneous Notes* Telephone Encounter - Mariana Sutton Vanessa - 2023 1:57 PM EDT Spoke to [...] Frances, please review the order and sign. Fish And Wildlife Technician, please call the patient to make arrangements. [...] the next 1-2 months documented in this encounterBlanchard Valley Health System [facility]07-03-2023 Miscellaneous Notes* Telephone Encounter - Tarik Valdivia RN - 02/16/2023 1:14 PM EDT Most recent Rheumatology visit: 02/04/2023 (with Nadege Murphy) Recent Office Visits - This Specialty 02/04/2023 Systemic lupus erythematosus, unspecified SLE type, unspecified organ involvement status(HCC) Rheumatology Nadege Murphy, DO 10/16/2022 Osteopenia, unspecified location [facility] Obdulia Ann PA-C 05/12/2022 Osteopenia, unspecified location [facility] Obdulia Ann PA-C Upcoming Rheumatology Appointments - Next [...] Expires Ordered Last Rel. C3 COMPLEMENT BLD [[id number]] 4/6 Every 4 months 03/13/23 03/13/22 06/30/22 Auth. provider: Evelin Alicea MD Assoc. diagnoses: Membranous lupus nephritis syndrome (HCC), High risk medication use, Systemic lupus erythematosus, unspecified SLE type, unspecified organ involvement status (HCC) C4 COMPLEMENT BLD [[id number]] 4/6 Every 4 months 03/13/23 03/13/22 06/30/22 [...] a day with food documented in this encounterBlanchard Valley Health System [facility]06-29-2023 History of Present illness Narrative* Beverly Franco, DPZach - 02/12/2023 11:42 AM EDT SERVICE DATE: [...] TUNNEL RIGHT WRIST surgical correction COLONOSCOPY 05/10/2019 [facility] COLONOSCOPY GEN ANES 07/23/2020 Dr. Frances/Diverticulosis/Hemorrhoids/ Ulcerative Colitis/Rpt in 2 yrs. EGD EUS 01/11/2020 [facility] LASIK Right prior to [...] 4 hours as needed for pain.^Disp: ^Rfl: ntmwgwo-igzrmfjeq-vfnocti D3 500 mg-5 mcg (200 unit) per tablet^Take 1 tablet by mouth three times daily.^Disp: ^Rfl: MV with Hqn-Ibxdudyw-Bidfmx (CENTRUM SILVER) 0.4 mg-300 mcg- 250 mcg [...] AM Beverly Franco DPM documented in this encounterBlanchard Valley Health System [facility]06-26-2023 Miscellaneous Notes* Telephone Encounter - Hallie Young APRN.CNP - 02/09/2023 4:35 PM EDT Refill ordered. [...] BY MOUTH IN THE EVENING Hallie Young APRN.CNP * Telephone Encounter - Madeline Vaca MA - 02/09/2023 10:03 AM EDT Tom 01/01/22 siddhartha Nov - none documented in this encounterBlanchard Valley Health System [facility]06-26-2023 Miscellaneous Notes* Telephone Encounter - Sarai Menjivar RN - 02/09/2023 1:29 PM EDT Phoned pt and spoke with her. Dr. Booker has reviewed her labs and they are good. Dr. Booker did notice her creatinine had gone up a bit and asked that Jesus stays hydrated. Pt states she will. Sarai Menjivar RN documented in this encounterBlanchard Valley Health System [facility]06-21-2023 Instructions* Patient Instructions* Nadege Murphy DO - 02/04/2023 2:00 PM EDT Stop Cellcept (mycophenolate) Blood work and urine today on the first floor Continue Plaquenil 2 tablets/daily I will see you back in 2 months for follow up. documented in this encounterBlanchard Valley Health System [facility]06-21-2023 History of Present illness Narrative* Nadege Murphy DO - 02/04/2023 1:00 PM EDT Images from the original note were not included. [facility] DEPARTMENT OF RHEUMATIC [...] TUNNEL RIGHT WRIST surgical correction COLONOSCOPY 05/10/2019 [facility] COLONOSCOPY GEN ANES 07/23/2020 Dr. Frances/Diverticulosis/Hemorrhoids/ Ulcerative Colitis/Rpt in 2 yrs. EGD EUS 01/11/2020 [facility] LASIK Right prior to [...] once daily.^Disp: 360 tablet^Rfl: 1 MV with Zxk-Yfwtkfoz-Nwvihq (CENTRUM SILVER) 0.4 mg-300 mcg- 250 mcg [...] 4 hours as needed for pain.^Disp: ^Rfl: puumljn-huymqadwj-sfycoua D3 500 mg-5 mcg (200 unit) per [...] 74 - 99 mg/dL Final Comment: The [place] Diabetes Association (ADA) provides guidance for cutoff [...] Standards of Medical Care in Diabetes 2016, [place] [employer]. Diabetes Care. 2016.39(Suppl 1). AST [...] months. Nadege Murphy DO documented in this encounterBlanchard Valley Health System [facility]06-08-2023 History of Present illness Narrative* Beverly [...] with uninfected necrosis SLE (systemic lupus erythematosus) ([facility]) Sleep apnea 07/29/2012 PAST SURGICAL HISTORY Procedure Laterality Date APPENDECTOMY CARPAL TUNNEL RIGHT WRIST surgical correction COLONOSCOPY 05/10/2019 [facility] COLONOSCOPY GEN ANES 07/23/2020 Dr. Frances/Diverticulosis/Hemorrhoids/ Ulcerative Colitis/Rpt in 2 yrs. EGD EUS 01/11/2020 [facility] LASIK Right prior to [...] 4 hours as needed for pain.^Disp: ^Rfl: ommblpw-vnhfyksqq-vhspzot D3 500 mg-5 mcg (200 unit) per tablet^Take 1 tablet by mouth three times daily.^Disp: ^Rfl: MV with Jvs-Qpsroqbx-Oimouo (CENTRUM SILVER) 0.4 mg-300 mcg- 250 mcg [...] AM Beverly Franco DPM documented in this encounterBlanchard Valley Health System [facility]05-30-2023 Miscellaneous Notes* Telephone Encounter - Bang Spears RN - 01/13/2023 9:17 AM EDT Pharmacy escripts requesting the following refill: Requested Prescriptions Pending Prescriptions Disp Refills colestipol (COLESTID) 1 gram tablet [Pharmacy Med Name: COLESTIPOL HCL 1 GM TABLET] 120 tablet 3 Sig: TAKE 2 TABLETS BY MOUTH TWICE A DAY Please review and advise. Bang Spears RN documented in this encounterBlanchard Valley Health System [facility]05-05-2023 Miscellaneous Notes* Telephone Encounter - Bang Spears RN - 12/19/2022 3:23 PM EDT Images from the original note were not included. Dione Juan Daniel, MD You 53 minutes ago (2:29 PM) Lets do stool studies Dr. Frances, please review the orders and sign. Thank you, Bang Spears RN * Telephone Encounter - Bang Spears RN - 12/19/2022 12:41 PM EDT Pt is taking Colestipol BID. Pt on wait list for sooner apt. Please advise if any. Thank you, Bang Spears RN documented in this encounterBlanchard Valley Health System [facility]05-01-2023 History of Present illness Narrative* Coco [...] or open sores? No documented in this encounterBlanchard Valley Health System [facility]04-28-2023 Miscellaneous Notes* Telephone Encounter - Sarai Fowler - 12/12/2022 1:54 PM EDT Patient [...] in to my chart. documented in this encounterBlanchard Valley Health System [facility]04-11-2023 Miscellaneous Notes* Telephone Encounter - Bang Spears RN - 11/25/2022 8:51 AM EDT Pharmacy escripts requesting the following refill: Requested Prescriptions Pending Prescriptions Disp Refills ferrous sulfate (IRON) 325 mg (65 mg iron) tablet 90 tablet 3 Sig: Take 1 tablet by mouth once daily. Please review and advise. Bang Spears RN documented in this encounterBlanchard Valley Health System [facility]03-15-2023 Miscellaneous Notes* Telephone Encounter - Bang Spears RN - 10/29/2022 12:30 PM EDT Pharmacy escripts requesting the following refill: Requested Prescriptions Pending Prescriptions Disp Refills pantoprazole DR (PROTONIX) 40 mg tablet 60 tablet 3 Sig: Take 1 tablet by mouth twice daily. Please review and advise. Bang Spears RN documented in this encounterBlanchard Valley Health System [facility]03-15-2023 Miscellaneous Notes* Telephone Encounter - Bang [...] PM EDT Dr. Frances, please review updated f[facility]otechnew [facility] hospitalSpecpage message. If you agree with retesting, please sign order. Thank you, Bang Spears RN * Telephone Encounter - Rachelle Downs - 10/24/2022 10:28 AM EST Patient calling to follow up to message documented in this encounterBlanchard Valley Health System [facility]03-10-2023 Miscellaneous Notes* Telephone Encounter - Lisa Ramos - 10/24/2022 9:16 AM EST Spoke to patient and she is scheduled for bilataral injections at [facility] for this 10/27/22 under local. Per patient, she does not need a post-op visit. documented in this encounterBlanchard Valley Health System [facility]03-08-2023 Miscellaneous Notes* Telephone Encounter - Bang Spears RN - 10/22/2022 11:05 AM EST [facility] pharmacy is also out of Colestipol. Pt called and found [facility] [place] Dr. Frances, please review the order and sign. Thank you, .me * Telephone Encounter - Rachelle Downs - 10/22/2022 8:48 AM EST Patient calling again [facility] into [facility] * Telephone Encounter - Rachelle Downs - 10/21/2022 11:56 AM EST Patient calling to follow up to message documented in this encounterBlanchard Valley Health System [facility]03-07-2023 Miscellaneous Notes* Telephone Encounter - Lisa Ramos - 10/21/2022 3:58 PM EST Spoke to patient and let her know that I will call her to schedule the procedure Dr. Jones offered as soon as I receive the surgery information from him. In the meantime, I provided my direct number in surgery scheduling so she and I can keep in touch [phone]. documented in this encounterBlanchard Valley Health System [facility]03-03-2023 Miscellaneous Notes* Telephone Encounter - Bang Spears RN - 10/17/2022 9:00 AM EST Pt states [facility] in [place] has colestipol Dr. Frances, please review the [...] you, Bang Spears RN documented in this encounterBlanchard Valley [facility] History of Present illness Narrative* Obdulia Ann PA-C - 10/16/2022 9:30 AM EST Images from the original note were not included. Osteoporosis and Metabolic Bone Disease Date of Service: 10/16/2022 Patient: Jesus Wlof Medical Record: [id number] Primary Care Physician: Wojciech Treviño MD, DO Last Rheumatology visit: 05/12/2022 (with Obdulia Ann) History of Present Illness Jesus Wolf [...] use (Comment: Daily steroid uses from about 2779-0848) Previous use No rheumatoid arthritis Secondary osteoporosis [...] DATE OF EXAM: Mar 13 2022 3:21PM [facility] 0804 - DXA - AXIAL SKELETON -NB / PROCEDURE REASON: Asymptomatic postmenopausal status * * * * Physician Interpretation * * * * EXAMINATION: DXA BONE DENSITOMETRY BD DXA - AXIAL SKELETON -NB CLINICAL HISTORY: DIAGNOSTIC Asymptomatic postmenopausal status . DXA Model: Paperlit (S/N: [id number]) SITE SCANNED: Lumbar Spine, Left Hip, & [...] should take calcium, the recommended dose is 0567-0112 mg per day along with 800-1000 IU vitamin D (some patients may require higher doses of vitamin D). LIMITATIONS: - Degenerative changes in the spine may artificially increase bone mass and make the reading unreliable FOLLOW-UP: - 2-years cc. Dr. Hardin Implant Polisher: findin Transcribe Date/Time: Mar 13 2022 3:34P [...] TUNNEL RIGHT WRIST surgical correction COLONOSCOPY 05/10/2019 [facility] COLONOSCOPY GEN ANES 07/23/2020 Dr. Frances/Diverticulosis/Hemorrhoids/ Ulcerative Colitis/Rpt in 2 yrs. EGD EUS 01/11/2020 [facility] LASIK Right prior to 1999 MRI PANC/JEANIE WO/W IVCON 12/20/2019 OVARIAN CYSTECTOMY PAST SURGICAL HISTORY OF 07/2013 bilateral foot procedure, [place] PAST SURGICAL HISTORY OF Ablation X2 TONSILLECTOMY [...] - Calcium Replacement/Vitamin D Combinations Start End rygqalg-sepzyuyrw-xjxbsfr D3 500 mg-5 mcg (200 unit) per tablet 08/27/2022 Sig - Route: Take 1 tablet by mouth three times daily. - ORAL Class: OTC Vitamins - D Derivatives Start End Cholecalciferol, Vitamin D3, 2,000 unit cap Sig - Route: Take by mouth once daily. - ORAL Class: Historical Med Multivitamin and Mineral Combinations Start End MV with Ytz-Zjwmnpkc-Rtxisg (CENTRUM SILVER) 0.4 mg-300 mcg- 250 mcg tab Sig - Route: Take 1 tablet by mouth once daily. - ORAL Class: Historical Med Minerals and Electrolytes - Calcium Replacement/Vitamin D Combinations Start End tgwokln-ikgzztlds-bavojra D3 500 mg-5 mcg (200 unit) per [...] needed (mouth or hand numbness or tingling). kvbtuqw-vrrxetndu-hvmrhgz D3 500 mg-5 mcg (200 unit) per tablet Take 1 tablet by mouth three times daily. 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 [...] routine health maintenance advised. Orders this visit: [facility] on 10/16/22 alendronate (FOSAMAX) 70 mg tablet Return in about 6 months (around 04/18/2023). I spent a total of 21 minutes on the date of the service which included preparing to see the patient, kbps-az-jvbs patient care, completing clinical documentation, obtaining and/or reviewing separately obtained history, performing a medically appropriate examination, and counseling and educating the patient/family/caregiver. Obdulia Ann PA-C Date: October 16, 2022 documented in this encounterBlanchard Valley [facility]02-15-2023 Miscellaneous Notes* Telephone Encounter - Bang [...] 09/30/2022 1:[address] Frances, just [facility]. Thank you, Bang Spears RN documented in this encounterBlanchard Valley Health System [facility]02-08-2023 Miscellaneous Notes* Telephone Encounter - Neris Shannon LPN - 09/24/2022 9:14 AM EST Spoke with patient. Patient will no longer follow with either Dr. Mcfadden or Dr. Martins. No explanation given. Will contact new provider office for refills. * Telephone Encounter - Keyanna Carter APRN.GUIDE EXCURSION - 09/22/2022 2:58 PM EST Patient requesting [...] Contains abnormal data LIPID PANEL (EXTERNAL) Order: [id number] Component Ref Range & Units 12 d [...] 1.0 - 5.0 2.6 documented in this encounterBlanchard Valley Health System [facility]02-06-2023 Miscellaneous Notes* Telephone Encounter - Bang Spears RN - 09/22/2022 9:11 AM EST Pharmacy escripts requesting the following refill: Requested Prescriptions Pending Prescriptions Disp Refills Mesalamine (LIALDA) 1.2 gram EC tablet 360 tablet 1 Sig: Take 4 tablets by mouth once daily. Please review and advise. Bang Spears RN documented in this encounterBlanchard Valley Health System [facility]01-30-2023 Miscellaneous Notes* Telephone Encounter - Monica [...] SIGNATURE: Monica Booker MD documented in this encounterBlanchard Valley Health System [facility]01-30-2023 History of Present illness Narrative* Hallie [...] or open sores? No documented in this encounterBlanchard Valley Health System [facility]01-27-2023 Miscellaneous Notes* Telephone Encounter - Jessica [...] on any recent antibiotics. documented in this encounterBlanchard Valley Health System [facility]01-25-2023 Miscellaneous Notes* Telephone Encounter - Bang [...] and would like it to go to [facility] pharmacy. documented in this encounterBlanchard Valley Health System [facility]01-23-2023 Miscellaneous Notes* Telephone Encounter - Sarai Menjivar RN - 09/08/2022 4:27 PM EST [...] concerns. Sarai Menjivar RN documented in this encounterBlanchard Valley Health System [facility]01-10-2023 Miscellaneous Notes* Telephone Encounter - Sarai Collado - 08/26/2022 1:14 PM EST 08/25/22 Negative Covid Text indexed documented in this encounterBlanchard Valley Health System [facility]01-06-2023 Miscellaneous Notes* Telephone Encounter - Sarai Menjivar RN - 08/22/2022 1:53 PM EST Jesus has arranged for her covid test and will hand carry the results with her to surgery. She will also fax a copy for her record. Sarai Menjivar RN documented in this encounterBlanchard Valley Health System [facility]01-06-2023 Miscellaneous Notes* Telephone Encounter - Sarai Menjivar RN - 08/22/2022 9:12 AM EST Phoned and left Jesus a message to please call the office. We have not received a letter from her construction equipment overhauler in regards to her Eliquis. We have left multiple messages and have spoken with Dr. Couch office but have not gotten a response. Sarai Menjivar RN documented in this encounterBlanchard Valley Health [facility]01-05-2023 Miscellaneous Notes* Telephone Encounter - Sarai Menjivar RN - 08/21/2022 10:42 AM EST [...] . Sarai Menjivar RN documented in this encounterBlanchard Valley Health System [facility]12-15-2022 Instructions* Patient Instructions* Fercho Cortes APRN.GUIDE EXCURSION - 07/31/2022 9:19 AM EST PATIENT PREOPERATIVE INSTRUCTIONS No ref. provider found has scheduled you for your procedure at this surgery center: [facility] [place] Scheduling Office: [phone] --[address] [place] [address]. Please read below carefully for your personalized [...] or other anticoagulants without consulting with your construction equipment overhauler or prescribing physician. - Stop Vitamin E, [...] Procedures: - YOU MUST HAVE A RESPONSIBLE STORAGE SPECIALIST TAKE YOU HOME. A CLINICAL VETERINARIAN OR SLATE SPLITTER CANNOT BE MADE A RESPONSIBLE STORAGE SPECIALIST. - We recommend that a responsible [...] call the Thursday before. Your surgeon s outdoor fitness trainer will tell you what time to call the office. - If you have not reached the departmental outdoor fitness trainer by 5 P.M., call [phone] after 5 P.M. the day before your surgery. Please be aware that emergency situations arise, which may delay or change your surgical time. If this happens, we will notify you as soon as possible and regret any inconvenience. If you already have an Advance Directive, please fax a copy to [phone] or email to for it to be [...] into your chart that day. Fercho Cortes APRN.CNP documented in this encounterBlanchard Valley Health System [facility]12-15-2022 History and physical note * Fercho [...] with uninfected necrosis SLE (systemic lupus erythematosus) ([facility]) Sleep apnea 07/29/2012 PAST SURGICAL HISTORY Procedure Laterality Date APPENDECTOMY CARPAL TUNNEL RIGHT WRIST surgical correction COLONOSCOPY 05/10/2019 [facility] COLONOSCOPY GEN ANES 07/23/2020 Dr. Frances/Diverticulosis/Hemorrhoids/ Ulcerative Colitis/Rpt in 2 yrs. EGD EUS 01/11/2020 [facility] LASIK Right prior to [...] Take one(1) tablet daily. Yes MV with Xob-Rmwelpgx-Ekvovc (CENTRUM SILVER) 0.4 mg-300 mcg- 250 mcg [...] fevers. 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 [...] +CHF on Aldactone no history of angina, RI, cardiac surgery or stents. Denies rest pain, gangrene or revascularization/amputation for PVD GI: Positive for GERD, PUD, ulcerative Colitits History of Pancreatitis : No history of dysuria, frequency or incontinence,, stones or chronic kidney disease, No difficulty urinating, nocturia > 1 time per night or hematuria APPLICATIONS SYSTEM ANALYST: Negative for abnormal vaginal bleeding, abnormal [...] normal intervals, reviewed by myself., reviewed by construction equipment overhauler. Impression CONCLUSIONS: - Technically difficult exam due [...] Initiated: Orders Placed This Encounter MV with Lpa-Izxgjbkv-Shsedt (CENTRUM SILVER) 0.4 mg-300 mcg- 250 mcg tab Sig: Take 1 tablet by mouth once daily., Orders per surgeon Planned Anesthetic: General Instructions Given to Patient: Instructions located in the after visit summary. Patient given verbal and written preop instructions and voices comprehension and compliance. SIGNATURE: Fercho Cortes APRN.JOHNATHAN PATIENT NAME: Jesus Wolf DATE: July 31, 2022 TIME: 8:51 AM documented in this encounterBlanchard Valley Health System [facility]12-07-2022 Miscellaneous Notes* Telephone Encounter - Bang Spears RN - 07/23/2022 5:24 PM EST Last colon 09/12/2021 - pt is due in 2-3 years. Recall in. Bang Spears RN * Telephone Encounter - Emily Crawford LPN - 07/23/2022 5:03 PM EST Per note patient was to repeat colonoscopy in 2 years. Patient is currently seeing Dr Blanton. Please have her place orders and assist with scheduling if appropriate. Emily Crawford LPN July 23, 2022 5:04 PM documented in this encounterBlanchard Valley Health System [facility]11-21-2022 History and physical note * Monica Booker MD - 07/07/2022 1:30 PM EST H&P [...] obtained. Monica Booker MD documented in this encounterBlanchard Valley Health System [facility]11-21-2022 History of Present illness Narrative* Paola [...] 1040/1416 PATIENT DISCHARGED TO: Ambulatory patient, left [place] department area. A Diagnostic radioactive procedure has taken place, with no further precautions necessary other than routine body substance precautions. More information regarding radiation safety can be found usingthis link: [email or web address]%20Medicine%[email or web address] SIGNATURE: RT Zaria(R) PATIENT NAME: Jesus Wolf DATE: July 07, 2022 TIME: 10:54 AM PAGER/CONTACT #: documented in this encounterBlanchard Valley Health System [facility]11-15-2022 Miscellaneous Notes* Telephone Encounter - Sarai Tobias - 07/01/2022 9:32 AM EST 07/01/22: INTAKE COMPLETE Patient informed about MIBI. Scheduled on patient's behalf. ENDOCRINE SURGERY PATIENT WORKSHEET Initial Call Date: July 01, 2022 Reason for Consult/ Referral: Hyperparathyroid, Hypercalcemia PATIENT DEMOGRAPHICS Name: Jesus Wolf CCF#: [id number] : 1955 AGE: [age] year old Contact Numbers: Home: (home) Work: There is no work phone number on file. PATIENT PHYSICIAN INFORMATION Referring Doctor: Lemuel Bejarano Address: Phone: Line Staker: same Address: Phone: PCP: Wojciech Treviño MD ([facility]) [address] [place] [address] PAST TREATMENT Office notes: SEE EPIC Medications: [...] 300.0 mg/24 hr 108.5 Imaging Reports: SEE [facility] CD of Images: SEE [facility] FNA: no FNA Slides: N/A Has the patient ever had thyroid or parathyroid surgery before: No Operative Reports: NONE AVAILABLE Pathology Reports: NONE AVAILABLE documented in this encounterBlanchard Valley Health System [facility]10-27-2022 History of Present illness Narrative* Cha [...] reaction. Cha Oscar RN documented in this encounterBlanchard Valley Health System [facility]10-26-2022 Instructions* Patient Instructions* Lemuel Bejarano V, MD - 06/11/2022 3:06 PM EDT [phone]-- [facility] Monica Cantrell documented in this encounterBlanchard Valley Health System [facility]10-26-2022 History of Present illness Narrative* Lemuel Bejarano V, MD - 06/11/2022 2:50 PM EDT Reason for consultation: evaluation of primary hyperparathyroidism Referring Physician: Obdulia Peña [address] [address] My final recommendations will be communicated back [...] TUNNEL RIGHT WRIST surgical correction COLONOSCOPY 05/10/2019 [facility] COLONOSCOPY GEN ANES 07/23/2020 Dr. Frances/Diverticulosis/Hemorrhoids/ Ulcerative Colitis/Rpt in 2 yrs. EGD EUS 01/11/2020 [facility] LASIK Right prior to 1999 MRI PANC/JEANIE WO/W IVCON 12/20/2019 OVARIAN CYSTECTOMY PAST SURGICAL HISTORY OF 07/2013 bilateral foot procedure, [place]verick PAST SURGICAL HISTORY OF 2018,2019 Ablation X2 [...] by chemiluminescent immunoassay. No components found for: IFV868 Calcium Date Value Ref Range Status 05/16/2021 [...] which included preparing to see the patient, aysr-ka-ohjo patient care, completing clinical documentation, obtaining and/or [...] No Heat Intolerance?: Yes documented in this encounterBlanchard Valley Health System [facility]10-03-2022 Miscellaneous Notes* Telephone Encounter - Lisa Ramos - 05/19/2022 12:47 PM EDT Patient is scheduled for bilateral cortisone injections with fluoroscopic guidance with Dr. Howard 07/21/22. She would like sooner if any cancellations, however, is not available 05/23 thru 06/08. No PACC or post-op appts needed for this procedure. documented in this encounterBlanchard Valley Health System [facility]09-29-2022 Miscellaneous Notes* Telephone Encounter - Sravani Quinteros LPN - 05/15/2022 9:04 AM EDT RX was approved on 05/15/22 and was sent to [facility]. Pt was notified. documented in this encounterBlanchard Valley Health System [facility]09-29-2022 Miscellaneous Notes* Telephone Encounter - Sravani Quinteros LPN - 05/15/2022 8:51 AM EDT Pt requesting refill son the following medication. Please file if appropriate. documented in this encounterBlanchard Valley Health System [facility]09-26-2022 Instructions* Patient Instructions* Obdulia Peña PA-C - 05/12/2022 11:12 AM EDT [...] but you can sit down. Please call [phone] to schedule endocrinology appointment. documented in this encounterBlanchard Valley Health System [facility]09-26-2022 History of Present illness Narrative* Obdulia Peña PA-C - 05/12/2022 10:50 AM EDT Images from the original note were not included. Osteoporosis and Metabolic Bone Disease Date of Service: 05/12/2022 Patient: Jesus Wolf Medical Record: [id number] Primary Care Physician: Wojciech Treviño MD, DO Last Rheumatology visit: 04/18/2022 (with Obdulia Peña) History of Present Illness Jesus Wolf [...] use (Comment: Daily steroid uses from about 9041-1003) Previous use No rheumatoid arthritis Secondary osteoporosis [...] Mar 13 2022 3:21PM [facility] 0804 - DXA - AXIAL SKELETON -NB / PROCEDURE REASON: Asymptomatic postmenopausal status * * * * Physician Interpretation * * * * EXAMINATION: DXA BONE DENSITOMETRY BD DXA - AXIAL SKELETON - CLINICAL HISTORY: DIAGNOSTIC Asymptomatic postmenopausal status . DXA Model: Paperlit (S/N: [id number]) SITE SCANNED: Lumbar Spine, Left Hip, & [...] should take calcium, the recommended dose is 0469-7467 mg per day along with 800-1000 IU vitamin D (some patients may require higher doses of vitamin D). LIMITATIONS: - Degenerative changes in the spine may artificially increase bone mass and make the reading unreliable FOLLOW-UP: - 2-years cc. Dr. Hardin Implant Polisher: findin Transcribe Date/Time: Mar 13 2022 3:34P [...] TUNNEL RIGHT WRIST surgical correction COLONOSCOPY 05/10/2019 [facility] COLONOSCOPY GEN ANES 07/23/2020 Dr. Frances/Diverticulosis/Hemorrhoids/ Ulcerative Colitis/Rpt in 2 yrs. EGD EUS 01/11/2020 [facility] LASIK Right prior to [...] use (Comment: Daily steroid uses from about 3851-9388) Previous use No rheumatoid arthritis Secondary osteoporosis [...] routine health maintenance advised. Orders this visit: [facility] on 05/12/22 CONSULT TO ENDOCRINOLOGY alendronate (FOSAMAX) 70 mg tablet Return in about 6 months (around 11/09/2022). Medical Decision Making: Problems: Low: Stable chronic illness Data: Unique test result(s) reviewed: 3+ Risk: Moderate: Drug management Medical Decision Making Level: 4 - Moderate Obdulia Peña PA-C Date: May 12, 2022 documented in this encounterBlanchard Valley Health System [facility]09-20-2022 Miscellaneous Notes* Telephone Encounter - Barbie Gerard LPN - 05/06/2022 4:00 PM EDT [employer] message sent to patient r/t below request. documented in this [facility]09-20-2022 Miscellaneous Notes* Telephone Encounter - Barbie Gerard [...] Please file if appropriate documented in this [facility]09-02-2022 Instructions* Patient Instructions* Obdulia Peña PA-C - 04/18/2022 4:36 PM EDT [...] container to the lab. documented in this [facility]09-02-2022 History of Present illness Narrative* Obdulia Peña PA-C - 04/18/2022 3:56 PM EDT Images from the original note were not included. Osteoporosis and Metabolic Bone Disease Date of Service: 04/18/2022 Patient: Jesus Wolf Medical Record: [id number] Primary Care Physician: Wojciech Treviño MD, DO Last Rheumatology visit: 04/18/2022 (with Obdulia Peña) History of Present Illness Jesus Wolf [...] use (Comment: Daily steroid uses from about 9844-4091) Previous use No rheumatoid arthritis Secondary osteoporosis [...] Mar 13 2022 3:21PM [facility] - DXA - AXIAL SKELETON -NB / PROCEDURE REASON: Asymptomatic postmenopausal status * * * * Physician Interpretation * * * * EXAMINATION: DXA BONE DENSITOMETRY BD DXA - AXIAL SKELETON - CLINICAL HISTORY: DIAGNOSTIC Asymptomatic postmenopausal status . DXA Model: Paperlit (S/N: [id number]) SITE SCANNED: Lumbar Spine, Left Hip, & [...] should take calcium, the recommended dose is 4397-4930 mg per day along with 800-1000 IU vitamin D (some patients may require higher doses of vitamin D). LIMITATIONS: - Degenerative changes in the spine may artificially increase bone mass and make the reading unreliable FOLLOW-UP: - 2-years cc. Dr. Hardin Implant Polisher: findin Transcribe Date/Time: Mar 13 2022 3:34P [...] TUNNEL RIGHT WRIST surgical correction COLONOSCOPY 05/10/2019 [facility] COLONOSCOPY GEN ANES 07/23/2020 Dr. Frances/Diverticulosis/Hemorrhoids/ Ulcerative Colitis/Rpt in 2 yrs. EGD EUS 01/11/2020 [facility] LASIK Right prior to [...] use (Comment: Daily steroid uses from about 5278-3999) Previous use No rheumatoid arthritis Secondary osteoporosis [...] Medical Decision Making Level: 4 - Moderate Obdulia Peña PA-C Date: April 18, 2022 documented in this encounterBlanchard Valley Health System [facility]07-28-2022 History of Present illness Narrative* RT Evon(R) - 03/13/2022 2:50 PM EDT Patient has been identified by name and date of . Scanner eBrevia [id number] Sites Scanned: Lumbar spine, Left hip, left [...] 13, 2022 2:59 PM documented in this encounterBlanchard Valley Health System [facility]07-28-2022 History of Present illness Narrative* Liliane García RN - 03/13/2022 2:30 PM EDT Patient arrives ambulatory for receipt of COVID-19 Monoclonal Antibodies for pre-exposure prophylaxis. 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 Vitals are stable. documented in this encounterBlanchard Valley Health System [facility]07-28-2022 History of Present illness Narrative* Keira [...] next. Keira Frias RN documented in this encounterBlanchard Valley Health System [facility]07-28-2022 Instructions* Patient Instructions* Evelin Alicea MD [...] your usual activities immediately. documented in this encounterBlanchard Valley Health System [facility]07-28-2022 History of Present illness Narrative* Evelin [...] with uninfected necrosis SLE (systemic lupus erythematosus) ([facility]) Sleep apnea 07/29/2012 FAMILY HISTORY Problem Relation [...] unspecified SLE type, unspecified organ involvement status ([facility]) (Z78.0) Asymptomatic postmenopausal status Her kidney disease [...] (CRP) Evelin Hardin MD documented in this encounterBlanchard Valley Health System [facility]07-27-2022 Miscellaneous Notes* Telephone Encounter - Liliane García RN - 03/12/2022 12:34 PM EDT Patient sent a Penana message she will not be taking the Evusheld injection this appointment. Liliane García RN documented in this encounterBlanchard Valley Health System [facility]07-21-2022 Instructions* Patient Instructions* Court Vazquez RN [...] serious illness Are taking any medications (prescription, jnfm-vkq-ksworiv, vitamins, or herbal products) How will I [...] of EVUSHELD for ongoing protection. Viruses can change person time (mutate) and develop into a slightly [...] up-to-date with the latest information by visiting [email or web address].[email or web address] To File or by scanning the QR code, below: [...] treatment or prevention of COVID-19 go to https://www.fda.gov/cugtedbct-cgvoussuzlue-jek-response/wxi-qmews-fbfqfygmwj-and -policy-framework/ifmnavrwe-dpy-xaceanrybdpcz. It is your choice to receive or [...] to FDA MedWatch at www.fda.gov/medwatch or call 6-831-BPN-1088 or call [employer] . Additional Information If you have questions, visit the website or call the telephone number provided below. To access the most recent EVUSHELD Fact Sheets, please scan the QR code provided below. Website Telephone number http://www.BNI Video How can I learn more about COVID-19? Ask your healthcare provider. Visit https://www.cdc.gov/COVID19 Contact your local or state public health department. What is an Emergency Use Authorization? The [place] FDA has made EVUSHELD (tixagevimab co-packaged with cilgavimab) available under an emergency access mechanism called an Emergency Use Authorization EUA. The EUA is supported by a Medical Claims Processor of Health and Human Service (HHS) declaration [...] be used under the EUA). Distributed by: [employer], [place], [place] Manufactured by: [employer], [address] [place] [address], [place] [employer] [place] 2020. All rights reserved. documented in this encounterBlanchard Valley [facility]07[facility]2022 Miscellaneous Notes* Telephone Encounter - Court Vazquez RN - 03/06/2022 9:32 AM EDT Evusheld (tixagevimab/cilgavimab) Eligibility and Patient Discussion [facility] Formulary Restriction Criteria: Outpatient adults and pediatrics 12 years and older and > 40 kg with ALL of the following: [x] COVID test scheduled: Yes Date: 03/07/22, type of test:Home antigen [x] Patient has not been exposed to a SARS-COV-2 positive individual ([facility] information on COVID exposure link) [x] Patient [...] 06, 2022 9:33 AM documented in this encounterBlanchard Valley [facility]07-11-2022 Miscellaneous Notes* Telephone Encounter - Dione Frances MD - 02/24/2022 8:30 PM EDT Spoke with patient regarding positive C. difficile toxin by PCR. Have ordered vancomycin p.o. 4 times daily x 10 days to her local pharmacy. Patient verbalized understanding all questions answered. Dione Frances MD, MPH Gastroenterology and Hepatology documented in this encounterBlanchard Valley Health System [facility]07-11-2022 Miscellaneous Notes* Telephone Encounter - Court Vazquez RN - 02/24/2022 1:13 PM EDT Most recent Rheumatology visit: 12/09/2021 (with Cuca Guthrie) Upcoming Rheumatology Appointments - Next 365 Days Visit Type Date Time Department [facility] 03/13/2022 11:30 AM RHEU MAIN A50 [...] [SQCBC] 09/13/22 09/13/21 Auth. provider: Keyanna Carter APRN.[employer] Assoc. diagnoses: Chronic diastolic congestive heart failure (HCC), Paroxysmal atrial fibrillation (HCC), Essential hypertension Pending Prescriptions Disp Refills HYDROXYCHLOROQUINE 200 MG TABLET 180 tablet 2 Sig: take 1 tablet by mouth twice a day with food NIKITA: No Court Vazquez RN documented in this encounterBlanchard Valley [facility]07-08-2022 Miscellaneous Notes* Telephone Encounter - Dione [...] MPH Gastroenterology and Hepatology documented in this encounterBlanchard Valley [facility]07-07-2022 Miscellaneous Notes* Telephone Encounter - Sravani Quinteros LPN - 02/20/2022 4:57 PM EDT Pt called back. Please see 02/14/22 phone encounter. documented in this encounterBlanchard Valley Health System [facility]07-05-2022 Miscellaneous Notes* Telephone Encounter - Sravani Quinteros LPN - 2022 7:32 AM EDT Please see other phone encounter that was sent by Pt. documented in this encounterBlanchard Valley Health System [facility]06-26-2022 Discharge summary Author Hussain Cat [facility] February 09, 2022 11:55amNote Date/TimeJun2021 11:55[place] [address] Discharge Summary Signed Patient: Jesus Wolf MR#: [id number] : 1955 Acct:[id number] Age/Sex: 66 / F Adm Date: 2 Loc: Room: [address] [place] [address]: Hussain Cat MD Copies to: [...] with generalized weakness and altered mental status. Joseph salguero was running errands with her when she [...] signed by Hussain Cat MD> 02/09/22 1155 [facility] Work Phone: [phone] Progress note Author Hussain Cat [facility] February 08, 2022 6:09pmNote Date/TimeJune 2021 5:53pm[place] [address] Hospitalist Progress Note Signed Patient: Jesus Wolf MR#: [id number] : 1955 Acct:[id number] Age/Sex: 66 / F Adm Date: 2 Loc: Room: [address] [place] [address] Type : ADM INOo Attending Dr: Hussain Cat MD Copies to: ~ Date of Service: 02/08/2022 Subjective Subjective Narrative: Patient seen and assessed with family at bedside today. Patient does continue to feel weak overall,but feels that her strength is improved today. [...] 09:00 02/08/22 10:17 Ferrous Sulfate 324 Mg Tablet. PO 02/08/23 08:59 324 mg DAILY RUBEN [...] 09:00 02/08/22 10:17 Omeprazole 20 Mg Capsule.Dr PO 02/08/23 08:59 20 mg DAILY RUBEN [...] chronic microvascular changes. Will defer further imaging andinpatient work-upto neurology. We will continue to monitor for an additional night and plan for like ly discharge tomorrow unless further inpatient neurologic work-up is needed. Continue home medications at this time. CODE STATUS: Full code Documented By: Hussain Cat MD 2 1210 Signed By: <Electronically signed by Hussain Cat MD> 02/08/22 1545 [facility] Work Phone: [phone] Consult note Author Rachelle Frazier [facility] February 08, 2022 1:25pmNote Date/TimeJune 2021 11:56[place] [address] Neurology Consult Note Signed Patient: Jesus Wolf MR#: [id number] : 1955 Acct:[id number] Age/Sex: 66 / F Adm Date: 2 Loc: Room: [address] [place] [address] Type : ADM INOo Attending Dr: Hussain Cat MD Copies to: DO Hussain Helms MD Nicole J Danner, DO~ HPI Consult Date: 02/08/22 Medical Claims Processor: Rachelle Frazier DO Reason for consult: AMS [...] department with altered mental status.? Patient was reportedlyin her normal state of health up until today when she was running errands with her .? She reportedly became very weak all of a sudden and then was unable to recognize family members that were next to her.? She was brought into the emergency department for further evaluation.? Patient reported ly was completely normal yesterday and had no major issues.? She has nothad any recent changes to her home medications. The patient does not remember the events of yesterday She had also developed some jaw pain. She didhave some stiff neck all weak. She went to the chiropractor and had HVLA to the neck this was on . She was was sore after the manaipulation She still had neck and shoulder pain yesterday She is swollenin her neck. She does get a burst of steroids every 3 months She did have steroids yesterday forthe CT scan. She is feeling a little [...] mg PO BID 04/03/19 [History Confirmed 02/07/22] mjzqxbbr-zxm-yqpko acid 0.4 mg-lycopene 300 mcg-lutein 250 mcg [...] of dysmetria with good rapid alternating movements ldqqge-dk-lbzf Tone is physiologic Sensation was intact to [...] may be in an active process at t hispoint in time. She does have underlying obesity and untreated obstructive sleepapnea which leadsto sleep deprivation and hypersomnia which likely is playing arole. She was found to have a urinarytract infection. She has underlying debility. She has [...] her neck and her neck should be treatedwith other modalities. We will go ahead and [...] all questions were answered they agreed with thetreatment plan. Code(s): R41.82 - Altered mental status, [...] <Electronically signed by DO Rachelle Frazier> 02/08/22 1326 [facility] Work Phone: [phone] History and physical note Author Hussain Cat [facility] February 07, 2022 11:02pmNote Date/TimeJune 2021 10:29pmJamie [place] [id number] Hospitalist H&P Signed Patient: Jesus Wolf MR#: [id number] : 1955 Acct:[id number] Age/Sex: 66 / F Adm Date: 2 Loc: Room: [address] [place] [address] Type : ADM IN Attending Dr: Hussain [...] to theemergency department with altered mental status. Patient was [...] She has not had any recent changes alisa er home medications. In the emergency department, patient [...] mg PO BID 04/03/19 [History Confirmed 02/07/22] jwhkfygg-wxn-gwbvq acid 0.4 mg-lycopene 300 mcg-lutein 250 mcg [...] % (Auto) 18.9 % (.) 02/07/22 14:23 Wagoner % (Auto) 12.2 % (.) 02/07/22 14:23 Eos % (Auto) 1.8 % (.) 02/07/22 14:23 Baso % (Auto) 0.5 % (.) 02/07/22 14:23 Neut # (Auto) 7.5 x10E3/uL (1.8-7.7) 02/07/22 14:23 Lymph # (Auto) 2.1 x10E3/uL (1.00-4.8) 02/07/22 14:23 [place]er # (Auto) 1.4 x10E3/uL (0.0-0.8) H 02/07/22 [...] pH 5.0 (5.0-9.0) 02/07/22 16:29 Ur Specific [place] 1.049 (1.001-1.030) H 02/07/22 16:29 Urine Protein Negative mg/dL (Negative) 02/07/22 16: Urine Glucose (UA) Normal mg/dL (Normal) 02/07/22 16: Urine Ketones Negative (Negative) 02/07/22 16: Urine Occult Blood Negative (Negative) 02/07/22 16:29 [...] By: <Electronically signed by Hussain Cat MD> 02/07/222301 [facility] Work Phone: [phone] Miscellaneous Notes* Telephone Encounter - Bang Spears RN - 02/05/2022 1:27 PM EDT Pt's daughter, Lesia, has been notified multiple times by the team recently and up to date on POC. Please review her chart. Bang Spears RN documented in this encounterBlanchard Valley Health System [facility]06-14-2022 Miscellaneous Notes* Telephone Encounter - Irene Sahu PA-C - 01/28/2022 10:27 AM EDT Prescription refill approved on January 28, 2022 and routed to pharmacy to be filled Irene Sahu PA-C documented in this encounterBlanchard Valley Health System [facility]06-09-2022 Miscellaneous Notes* Telephone Encounter - Jesus Moon MA - 01/23/2022 11:19 AM EDT Patient phones requesting refills as follows: Pending Prescriptions Disp Refills PANTOPRAZOLE 40 MG TABLET,DELAYED RELEASE 60 tablet 3 Sig: Take 1 tablet by mouth twice daily. NIKITA: No Please review and advise. Jesus Moon MA documented in this encounterBlanchard Valley Health System [facility]05-16-2022 Miscellaneous Notes* Telephone Encounter - Sravani Quinteros LPN - 12/30/2021 11:05 AM EDT Pt requesting refills on the following medication. Please file if appropriate. documented in this encounterBlanchard Valley Health System [facility]04-25-2022 History of Present illness Narrative* JOSEPH Garcia - 12/09/2021 2:30 PM EDT Images from the original note were not included. Rheumatology Outpatient Clinic New Patient To Dc Date of Service: 12/09/2021 Patient: Jesus Wolf Medical Record: [id number] Primary Care Physician: Wojciech Treviño MD Last [...] in September with Dr. Denis Bill at [facility]. Ulcerative colitis doing well but she did have stomach ulcers in October. She also discovered that she had an aortic aneurysm that is 4.7 Current Medications. 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 She does not follow with nephrology. [...] TUNNEL RIGHT WRIST surgical correction COLONOSCOPY 05/10/2019 [facility] COLONOSCOPY GEN ANES 07/23/2020 Dr. Frances/Diverticulosis/Hemorrhoids/ Ulcerative Colitis/Rpt in 2 yrs. EGD EUS 01/11/2020 [facility] LASIK Right prior to 1999 MRI PANC/JEANIE WO/W IVCON 12/20/2019 [facility]STECTOM[facility] PAST SURGICAL HISTORY OF 07/2013 bilateral foot procedure, [place] PAST SURGICAL HISTORY OF Ablation X2 TONSILLECTOMY [...] ANTIBODY W/CONFIRMATION <30 IU/mL - <12 <12 FIELD MAP EDITOR ANTIBODY <1.0 AI - - - SSA ANTIBODY <1.0 AI - - - SSB ANTIBODY <1.0 AI - - - KLEVER 1 ANTIBODY <1.0 AI - - - RIBOSOMAL FIELD MAP EDITOR <1.0 AI - - - SM ANTIBODY [...] which included preparing to see the patient, mhwf-kr-vyxc patient care, completing clinical documentation, obtaining and/or reviewing separately obtained history, performing a medically appropriate examination, counseling and educating the pat ient/family/caregiver and ordering medications, tests, or procedures. Medical Decision Making: Problems: Low: Stable chronic illness Risk: Moderate: Moderate risk from testing/treatment Medical Decision Making Level: 3 - Low documented in this encounterBlanchard Valley Health System [facility]04-25-2022 History of Present illness Narrative* Ramesh [...] HOURS FOR THIS PT. documented in this encounterBlanchard Valley Health System [facility]04-04-2022 Miscellaneous Notes* Telephone Encounter - Jesus Moon MA - 11/18/2021 10:03 AM EDT , Medication pended. Please file if appropriate. Thanks documented in this encounterBlanchard Valley Health System [facility]01-27-2022 History and physical note * Dione [...] TIME: 7:39 AM PAGER: documented in this encounterBlanchard Valley Health System [facility]05-04-2021 History of Past illness Narrative* ProblemNoted DateResolved DatePrimary osteoarthritis of right hip /12/2020Osteoarthritis of both feet Overview: Added automatically from request for surgery [id number] Osteoarthritis of ankle or foot Overview: Added automatically from request for surgery [id number] Overview: Added automatically from request for surgery [id number] Osteoarthrosis, localized, secondary, ankle or foot documented as of this encounter (statuses as of 11/18/2021) [facility]05-04-[facility] History of Past illness Narrative* ProblemNoted Date Resolved DatePrimary osteoarthritis of right hip/12/2020 Osteoarthritis of both feet Overview: Added automatically from request for surgery [id number] Osteoarthritis of ankle or foot Overview: Added automatically from request for surgery [id number] Overview: Added automatically from request for surgery [id number] Osteoarthrosis, localized, secondary, ankle or foot documented as of this encounter (statuses as of 12/09/2021) [facility]05-04-[facility] History of Past illness Narrative* ProblemNoted Date Resolved DatePrimary osteoarthritis of right hip Osteoarthritis of both feet Overview: Added automatically from request for surgery [id number] Osteoarthritis of ankle or foot Overview: Added automatically from request for surgery [id number] Overview: Added automatically from request for surgery [id number] Osteoarthrosis, localized, secondary, ankle or foot documented as of this encounter (statuses as of 12/09/2021) [facility] History of Past illness Narrative* ProblemNoted Date Resolved DatePrimary osteoarthritis of right hip/12/2020 Osteoarthritis of both feet Overview: Added automatically from request for surgery [id number] Osteoarthritis of ankle or foot Overview: Added automatically from request for surgery [id number] Overview: Added automatically from request for surgery [id number] Osteoarthrosis, localized, secondary, ankle or foot documented as of this encounter (statuses as of 12/30/2021) [facility] History of Past illness Narrative* ProblemNoted Date Resolved DatePrimary osteoarthritis of right hip/12/2020 Osteoarthritis of both feet Overview: Added automatically from request for surgery [id number] Osteoarthritis of ankle or foot Overview: Added automatically from request for surgery [id number] Overview: Added automatically from request for surgery [id number] Osteoarthrosis, localized, secondary, ankle or foot documented as of this encounter (statuses as of 01/23/2022) [facility] History of Past illness Narrative* ProblemNoted Date Resolved DatePrimary osteoarthritis of right hip/12/2020 Osteoarthritis of both feet Overview: Added automatically from request for surgery [id number] Osteoarthritis of ankle or foot Overview: Added automatically from request for surgery [id number] Overview: Added automatically from request for surgery [id number] Osteoarthrosis, localized, secondary, ankle or foot documented as of this encounter (statuses as of 01/28/2022) [facility] History of Past illness Narrative* ProblemNoted Date Resolved DatePrimary osteoarthritis of right hip/12/2020 Osteoarthritis of both feet Overview: Added automatically from request for surgery [id number] Osteoarthritis of ankle or foot Overview: Added automatically from request for surgery [id number] Overview: Added automatically from request for surgery [id number] Osteoarthrosis, localized, secondary, ankle or foot documented as of this encounter (statuses as of 02/05/2022) [facility] History of Past illness Narrative* ProblemNoted Date Resolved DatePrimary osteoarthritis of right hip/12/2020 Osteoarthritis of both feet Overview: Added automatically from request for surgery [id number] Osteoarthritis of ankle or foot Overview: Added automatically from request for surgery [id number] Overview: Added automatically from request for surgery [id number] Osteoarthrosis, localized, secondary, ankle or foot documented as of this encounter (statuses as of 2022) [facility] of Past illness Narrative* ProblemNoted Date Resolved DatePrimary osteoarthritis of right hip/12/2020 Osteoarthritis of both feet Overview: Added automatically from request for surgery [id number] Osteoarthritis of ankle or foot Overview: Added automatically from request for surgery [id number] Overview: Added automatically from request for surgery [id number] Osteoarthrosis, localized, secondary, ankle or foot documented as of this encounter (statuses as of 02/19/2022) [facility] of Past illness Narrative* ProblemNoted Date Resolved DatePrimary osteoarthritis of right hip Osteoarthritis of both feet Overview: Added automatically from request for surgery [id number] Osteoarthritis of ankle or foot Overview: Added automatically from request for surgery [id number] Overview: Added automatically from request for surgery [id number] Osteoarthrosis, localized, secondary, ankle or foot documented as of this encounter (statuses as of 02/20/2022) [facility] of Past illness Narrative* ProblemNoted Date Resolved DatePrimary osteoarthritis of right hip Osteoarthritis of both feet Overview: Added automatically from request for surgery [id number] Osteoarthritis of ankle or foot Overview: Added automatically from request for surgery [id number] Overview: Added automatically from request for surgery [id number] Osteoarthrosis, localized, secondary, ankle or foot documented as of this encounter (statuses as of 02/21/2022) [facility] of Past illness Narrative* ProblemNoted Date Resolved DatePrimary osteoarthritis of right hip Osteoarthritis of both feet Overview: Added automatically from request for surgery [id number] Osteoarthritis of ankle or foot Overview: Added automatically from request for surgery [id number] Overview: Added automatically from request for surgery [id number] Osteoarthrosis, localized, secondary, ankle or foot documented as of this encounter (statuses as of 02/24/2022) [facility] of Past illness Narrative* ProblemNoted Date Resolved DatePrimary osteoarthritis of right hip Osteoarthritis of both feet Overview: Added automatically from request for surgery [id number] Osteoarthritis of ankle or foot Overview: Added automatically from request for surgery [id number] Overview: Added automatically from request for surgery [id number] Osteoarthrosis, localized, secondary, ankle or foot documented as of this encounter (statuses as of 02/25/2022) [facility] of Past illness Narrative* ProblemNoted Date Resolved DatePrimary osteoarthritis of right hip/12/2020 Osteoarthritis of both feet Overview: Added automatically from request for surgery [id number] Osteoarthritis of ankle or foot Overview: Added automatically from request for surgery [id number] Overview: Added automatically from request for surgery [id number] Osteoarthrosis, localized, secondary, ankle or foot documented as of this encounter (statuses as of 03/06/2022) [facility] of Past illness Narrative* ProblemNoted Date Resolved DatePrimary osteoarthritis of right hip/12/2020 Osteoarthritis of both feet Overview: Added automatically from request for surgery [id number] Osteoarthritis of ankle or foot Overview: Added automatically from request for surgery [id number] Overview: Added automatically from request for surgery [id number] Osteoarthrosis, localized, secondary, ankle or foot documented as of this encounter (statuses as of 03/12/2022) [facility] of Past illness Narrative* ProblemNoted Date Resolved DatePrimary osteoarthritis of right hip/12/2020 Osteoarthritis of both feet Overview: Added automatically from request for surgery [id number] Osteoarthritis of ankle or foot Overview: Added automatically from request for surgery [id number] [id number] Overview: Added automatically from request for surgery [id number] Osteoarthrosis, localized, secondary, ankle or foot documented as of this encounter (statuses as of 03/13/2022) [facility] of Past illness Narrative* ProblemNoted Date Resolved DatePrimary osteoarthritis of right hip/12/2020 Osteoarthritis of both feet Overview: Added automatically from request for surgery [id number] Osteoarthritis of ankle or foot Overview: Added automatically from request for surgery [id number] Overview: Added automatically from request for surgery [id number] Osteoarthrosis, localized, secondary, ankle or foot documented as of this encounter (statuses as of 03/13/2022) [facility] of Past illness Narrative* ProblemNoted Date Resolved DatePrimary osteoarthritis of right hip Osteoarthritis of both feet Overview: Added automatically from request for surgery [id number] Osteoarthritis of ankle or foot Overview: Added automatically from request for surgery [id number] Overview: Added automatically from request for surgery [id number] Osteoarthrosis, localized, secondary, ankle or foot documented as of this encounter (statuses as of 03/13/2022) [facility] of Past illness Narrative* ProblemNoted Date Resolved DatePrimary osteoarthritis of right hip Osteoarthritis of both feet Overview: Added automatically from request for surgery [id number] Osteoarthritis of ankle or foot Overview: Added automatically from request for surgery [id number] Overview: Added automatically from request for surgery [id number] Osteoarthrosis, localized, secondary, ankle or foot documented as of this encounter (statuses as of 03/16/2022) [facility] of Past illness Narrative* ProblemNoted Date Resolved DatePrimary osteoarthritis of right hip Osteoarthritis of both feet Overview: Added automatically from request for surgery [id number] Osteoarthritis of ankle or foot Overview: Added automatically from request for surgery [id number] Overview: Added automatically from request for surgery [id number] Osteoarthrosis, localized, secondary, ankle or foot documented as of this encounter (statuses as of 03/20/2022) [facility] of Past illness Narrative* ProblemNoted Date Resolved DatePrimary osteoarthritis of right hip Osteoarthritis of both feet Overview: Added automatically from request for surgery [id number] Osteoarthritis of ankle or foot Overview: Added automatically from request for surgery [id number] [id number] Overview: Added automatically from request for surgery [id number] Osteoarthrosis, localized, secondary, ankle or foot documented as of this encounter (statuses as of 03/20/2022) [facility] of Past illness Narrative* ProblemNoted Date Resolved DatePrimary osteoarthritis of right hip/12/2020 Osteoarthritis of both feet Overview: Added automatically from request for surgery [id number] Osteoarthritis of ankle or foot Overview: Added automatically from request for surgery [id number] Overview: Added automatically from request for surgery [id number] Osteoarthrosis, localized, secondary, ankle or foot documented as of this encounter (statuses as of 03/27/2022) [facility] History of Past illness Narrative* ProblemNoted Date Resolved DatePrimary osteoarthritis of right hip/12/2020 Osteoarthritis of both feet Overview: Added automatically from request for surgery [id number] Osteoarthritis of ankle or foot Overview: Added automatically from request for surgery [id number] Overview: Added automatically from request for surgery [id number] Osteoarthrosis, localized, secondary, ankle or foot documented as of this encounter (statuses as of 04/23/2022) [facility] History of Past illness Narrative* ProblemNoted Date Resolved DatePrimary osteoarthritis of right hip/12/2020 Osteoarthritis of both feet Overview: Added automatically from request for surgery [id number] Osteoarthritis of ankle or foot Overview: Added automatically from request for surgery [id number] Overview: Added automatically from request for surgery [id number] Osteoarthrosis, localized, secondary, ankle or foot documented as of this encounter (statuses as of 05/06/2022) [facility] History of Past illness Narrative* ProblemNoted Date Resolved DatePrimary osteoarthritis of right hip/12/2020 Osteoarthritis of both feet Overview: Added automatically from request for surgery [id number] Osteoarthritis of ankle or foot Overview: Added automatically from request for surgery [id number] Overview: Added automatically from request for surgery [id number] Osteoarthrosis, localized, secondary, ankle or foot documented as of this encounter (statuses as of 05/07/2022) [facility] History of Past illness Narrative* ProblemNoted Date Resolved DatePrimary osteoarthritis of right hip Osteoarthritis of both feet Overview: Added automatically from request for surgery [id number] Osteoarthritis of ankle or foot Overview: Added automatically from request for surgery [id number] Overview: Added automatically from request for surgery [id number] Osteoarthrosis, localized, secondary, ankle or foot documented as of this encounter (statuses as of 05/12/2022) [facility] History of Past illness Narrative* ProblemNoted Date Resolved DatePrimary osteoarthritis of right hip Osteoarthritis of both feet Overview: Added automatically from request for surgery [id number] Osteoarthritis of ankle or foot Overview: Added automatically from request for surgery [id number] Overview: Added automatically from request for surgery [id number] Osteoarthrosis, localized, secondary, ankle or foot documented as of this encounter (statuses as of 05/15/2022) [facility] History of Past illness Narrative* ProblemNoted Date Resolved DatePrimary osteoarthritis of right hip Osteoarthritis of both feet Overview: Added automatically from request for surgery [id number] Osteoarthritis of ankle or foot Overview: Added automatically from request for surgery [id number] Overview: Added automatically from request for surgery [id number] Osteoarthrosis, localized, secondary, ankle or foot documented as of this encounter (statuses as of 05/15/2022) [facility] History of Past illness Narrative* ProblemNoted Date Resolved DatePrimary osteoarthritis of right hip Osteoarthritis of both feet Overview: Added automatically from request for surgery [id number] Osteoarthritis of ankle or foot Overview: Added automatically from request for surgery [id number] Overview: Added automatically from request for surgery [id number] Osteoarthrosis, localized, secondary, ankle or foot documented as of this encounter (statuses as of 05/19/2022) [facility] History of Past illness Narrative* ProblemNoted Date Resolved DatePrimary osteoarthritis of right hip/12/2020 Osteoarthritis of both feet Overview: Added automatically from request for surgery [id number] Osteoarthritis of ankle or foot Overview: Added automatically from request for surgery [id number] Overview: Added automatically from request for surgery [id number] Osteoarthrosis, localized, secondary, ankle or foot documented as of this encounter (statuses as of 05/19/2022) [facility] History of Past illness Narrative* ProblemNoted Date Resolved DatePrimary osteoarthritis of right hip/12/2020 Osteoarthritis of both feet Overview: Added automatically from request for surgery [id number] Osteoarthritis of ankle or foot Overview: Added automatically from request for surgery [id number] Overview: Added automatically from request for surgery [id number] Osteoarthrosis, localized, secondary, ankle or foot documented as of this encounter (statuses as of 05/26/2022) [facility] History of Past illness Narrative* ProblemNoted Date Resolved DatePrimary osteoarthritis of right hip/12/2020 Osteoarthritis of both feet Overview: Added automatically from request for surgery [id number] Osteoarthritis of ankle or foot Overview: Added automatically from request for surgery [id number] Overview: Added automatically from request for surgery [id number] Osteoarthrosis, localized, secondary, ankle or foot documented as of this encounter (statuses as of 06/11/2022) [facility] History of Past illness Narrative* ProblemNoted Date Resolved DatePrimary osteoarthritis of right hip/12/2020 Osteoarthritis of both feet Overview: Added automatically from request for surgery [id number] Osteoarthritis of ankle or foot Overview: Added automatically from request for surgery [id number] Overview: Added automatically from request for surgery [id number] Osteoarthrosis, localized, secondary, ankle or foot documented as of this encounter (statuses as of 06/12/2022) [facility] History of Past illness Narrative* ProblemNoted Date Resolved DatePrimary osteoarthritis of right hip/12/2020 Osteoarthritis of both feet Overview: Added automatically from request for surgery [id number] Osteoarthritis of ankle or foot Overview: Added automatically from request for surgery [id number] Overview: Added automatically from request for surgery [id number] Osteoarthrosis, localized, secondary, ankle or foot documented as of this encounter (statuses as of 06/18/2022) [facility] History of Past illness Narrative* ProblemNoted Date Resolved DatePrimary osteoarthritis of right hip/12/2020 Osteoarthritis of both feet Overview: Added automatically from request for surgery [id number] Osteoarthritis of ankle or foot Overview: Added automatically from request for surgery [id number] Overview: Added automatically from request for surgery [id number] Osteoarthrosis, localized, secondary, ankle or foot documented as of this encounter (statuses as of 06/19/2022) [facility] History of Past illness Narrative* ProblemNoted Date Resolved DatePrimary osteoarthritis of right hip/12/2020 Osteoarthritis of both feet Overview: Added automatically from request for surgery [id number] Osteoarthritis of ankle or foot Overview: Added automatically from request for surgery [id number] Overview: Added automatically from request for surgery [id number] Osteoarthrosis, localized, secondary, ankle or foot documented as of this encounter (statuses as of 07/01/2022) [facility] History of Past illness Narrative* ProblemNoted Date Resolved DatePrimary osteoarthritis of right hip Osteoarthritis of both feet Overview: Added automatically from request for surgery [id number] Osteoarthritis of ankle or foot Overview: Added automatically from request for surgery [id number] Overview: Added automatically from request for surgery [id number] Osteoarthrosis, localized, secondary, ankle or foot documented as of this encounter (statuses as of 07/01/2022) [facility] History of Past illness Narrative* ProblemNoted Date Resolved DatePrimary osteoarthritis of right hip Osteoarthritis of both feet Overview: Added automatically from request for surgery [id number] Osteoarthritis of ankle or foot Overview: Added automatically from request for surgery [id number] Overview: Added automatically from request for surgery [id number] Osteoarthrosis, localized, secondary, ankle or foot documented as of this encounter (statuses as of 07/07/2022) [facility] History of Past illness Narrative* ProblemNoted Date Resolved DatePrimary osteoarthritis of right hip05/04/ Osteoarthritis of both feet Overview: Added automatically from request for surgery [id number] Osteoarthritis of ankle or foot Overview: Added automatically from request for surgery [id number] Overview: Added automatically from request for surgery [id number] Osteoarthrosis, localized, secondary, ankle or foot documented as of this encounter (statuses as of 07/08/2022) [facility] History of Past illness Narrative* ProblemNoted Date Resolved DatePrimary osteoarthritis of right hip/12/2020 Osteoarthritis of both feet Overview: Added automatically from request for surgery [id number] Osteoarthritis of ankle or foot Overview: Added automatically from request for surgery [id number] Overview: Added automatically from request for surgery [id number] Osteoarthrosis, localized, secondary, ankle or foot documented as of this encounter (statuses as of 07/08/2022) [facility] History of Past illness Narrative* ProblemNoted Date Resolved DatePrimary osteoarthritis of right hip/12/2020 Osteoarthritis of both feet Overview: Added automatically from request for surgery [id number] Osteoarthritis of ankle or foot Overview: Added automatically from request for surgery [id number] Overview: Added automatically from request for surgery [id number] Osteoarthrosis, localized, secondary, ankle or foot documented as of this encounter (statuses as of 07/08/2022) [facility] History of Past illness Narrative* ProblemNoted Date Resolved DatePrimary osteoarthritis of right hip/12/2020 Osteoarthritis of both feet Overview: Added automatically from request for surgery [id number] Osteoarthritis of ankle or foot Overview: Added automatically from request for surgery [id number] Overview: Added automatically from request for surgery [id number] Osteoarthrosis, localized, secondary, ankle or foot documented as of this encounter (statuses as of 07/11/2022) [facility] History of Past illness Narrative* ProblemNoted Date Resolved DatePrimary osteoarthritis of right hip/12/2020 Osteoarthritis of ankle or foot Overview: Added automatically from request for surgery [id number] Overview: Added automatically from request for surgery [id number] Osteoarthrosis, localized, secondary, ankle or foot documented as of this encounter (statuses as of 07/21/2022) [facility] History of Past illness Narrative* ProblemNoted Date Resolved DatePrimary osteoarthritis of right hip/12/2020 Osteoarthritis of ankle or foot Overview: Added automatically from request for surgery [id number] Overview: Added automatically from request for surgery [id number] Osteoarthrosis, localized, secondary, ankle or foot documented as of this encounter (statuses as of 07/31/2022) [facility] History of Past illness Narrative* ProblemNoted Date Resolved DatePrimary osteoarthritis of right hip Osteoarthritis of ankle or foot Overview: Added automatically from request for surgery [id number] Overview: Added automatically from request for surgery [id number] Osteoarthrosis, localized, secondary, ankle or foot documented as of this encounter (statuses as of 08/08/2022) [facility] History of Past illness Narrative* ProblemNoted Date Resolved DatePrimary osteoarthritis of right hip Osteoarthritis of ankle or foot Overview: Added automatically from request for surgery [id number] Overview: Added automatically from request for surgery [id number] Osteoarthrosis, localized, secondary, ankle or foot documented as of this encounter (statuses as of 08/22/2022) [facility] History of Past illness Narrative* ProblemNoted Date Resolved DatePrimary osteoarthritis of right hip Osteoarthritis of ankle or foot Overview: Added automatically from request for surgery [id number] Overview: Added automatically from request for surgery [id number] Osteoarthrosis, localized, secondary, ankle or foot documented as of this encounter (statuses as of 08/23/2022) [facility] History of Past illness Narrative* ProblemNoted Date Resolved DatePrimary osteoarthritis of right hip Osteoarthritis of ankle or foot Overview: Added automatically from request for surgery [id number] Overview: Added automatically from request for surgery [id number] Osteoarthrosis, localized, secondary, ankle or foot documented as of this encounter (statuses as of 08/25/2022) [facility] History of Past illness Narrative* ProblemNoted Date Resolved DatePrimary osteoarthritis of right hip Osteoarthritis of ankle or foot Overview: Added automatically from request for surgery [id number] Overview: Added automatically from request for surgery [id number] Osteoarthrosis, localized, secondary, ankle or foot documented as of this encounter (statuses as of 08/26/2022) [facility] History of Past illness Narrative* ProblemNoted Date Resolved DatePrimary osteoarthritis of right hip Osteoarthritis of ankle or foot Overview: Added automatically from request for surgery [id number] Overview: Added automatically from request for surgery [id number] Osteoarthrosis, localized, secondary, ankle or foot documented as of this encounter (statuses as of 09/09/2022) [facility] History of Past illness Narrative* ProblemNoted Date Resolved DatePrimary osteoarthritis of right hip Osteoarthritis of ankle or foot Overview: Added automatically from request for surgery [id number] Overview: Added automatically from request for surgery [id number] Osteoarthrosis, localized, secondary, ankle or foot documented as of this encounter (statuses as of 09/12/2022) [facility] History of Past illness Narrative* ProblemNoted Date Resolved DatePrimary osteoarthritis of right hip/12/2020 Osteoarthritis of ankle or foot Overview: Added automatically from request for surgery [id number] Overview: Added automatically from request for surgery [id number] Osteoarthrosis, localized, secondary, ankle or foot documented as of this encounter (statuses as of 09/15/2022) [facility] History of Past illness Narrative* ProblemNoted Date Resolved DatePrimary osteoarthritis of right hip/12/2020 Osteoarthritis of ankle or foot Overview: Added automatically from request for surgery [id number] Overview: Added automatically from request for surgery [id number] Osteoarthrosis, localized, secondary, ankle or foot documented as of this encounter (statuses as of 09/15/2022) [facility] History of Past illness Narrative* ProblemNoted Date Resolved DatePrimary osteoarthritis of right hip/12/2020 Osteoarthritis of ankle or foot Overview: Added automatically from request for surgery [id number] Overview: Added automatically from request for surgery [id number] Osteoarthrosis, localized, secondary, ankle or foot documented as of this encounter (statuses as of 09/22/2022) [facility] History of Past illness Narrative* ProblemNoted Date Resolved DatePrimary osteoarthritis of right hip Osteoarthritis of ankle or foot Overview: Added automatically from request for surgery [id number] Overview: Added automatically from request for surgery [id number] Osteoarthrosis, localized, secondary, ankle or foot documented as of this encounter (statuses as of 09/24/2022) [facility] History of Past illness Narrative* ProblemNoted Date Resolved DatePrimary osteoarthritis of right hip Osteoarthritis of ankle or foot Overview: Added automatically from request for surgery [id number] Overview: Added automatically from request for surgery [id number] Osteoarthrosis, localized, secondary, ankle or foot documented as of this encounter (statuses as of 10/02/2022) [facility] History of Past illness Narrative* ProblemNoted Date Resolved DatePrimary osteoarthritis of right hip Osteoarthritis of ankle or foot Overview: Added automatically from request for surgery [id number] Overview: Added automatically from request for surgery [id number] Osteoarthrosis, localized, secondary, ankle or foot documented as of this encounter (statuses as of 10/16/2022) [facility] History of Past illness Narrative* ProblemNoted Date Resolved DatePrimary osteoarthritis of right hip Osteoarthritis of ankle or foot Overview: Added automatically from request for surgery [id number] Overview: Added automatically from request for surgery [id number] Osteoarthrosis, localized, secondary, ankle or foot documented as of this encounter (statuses as of 10/17/2022) [facility] History of Past illness Narrative* ProblemNoted Date Resolved DatePrimary osteoarthritis of right hip Osteoarthritis of ankle or foot Overview: Added automatically from request for surgery [id number] Overview: Added automatically from request for surgery [id number] Osteoarthrosis, localized, secondary, ankle or foot documented as of this encounter (statuses as of 10/22/2022) [facility] History of Past illness Narrative* ProblemNoted Date Resolved DatePrimary osteoarthritis of right hip Osteoarthritis of ankle or foot Overview: Added automatically from request for surgery [id number] Overview: Added automatically from request for surgery [id number] Osteoarthrosis, localized, secondary, ankle or foot documented as of this encounter (statuses as of 10/22/2022) [facility] History of Past illness Narrative* ProblemNoted Date Resolved DatePrimary osteoarthritis of right hip Osteoarthritis of ankle or foot Overview: Added automatically from request for surgery [id number] Overview: Added automatically from request for surgery [id number] Osteoarthrosis, localized, secondary, ankle or foot documented as of this encounter (statuses as of 10/23/2022) [facility] History of Past illness Narrative* ProblemNoted Date Resolved DatePrimary osteoarthritis of right hip/12/2020 Osteoarthritis of ankle or foot Overview: Added automatically from request for surgery [id number] Overview: Added automatically from request for surgery [id number] Osteoarthrosis, localized, secondary, ankle or foot documented as of this encounter (statuses as of 10/24/2022) [facility] History of Past illness Narrative* ProblemNoted Date Resolved DatePrimary osteoarthritis of right hip/12/2020 Osteoarthritis of ankle or foot Overview: Added automatically from request for surgery [id number] Overview: Added automatically from request for surgery [id number] Osteoarthrosis, localized, secondary, ankle or foot documented as of this encounter (statuses as of 10/24/2022) [facility] History of Past illness Narrative* ProblemNoted Date Resolved DatePrimary osteoarthritis of right hip/12/2020 Osteoarthritis of ankle or foot Overview: Added automatically from request for surgery [id number] Overview: Added automatically from request for surgery [id number] Osteoarthrosis, localized, secondary, ankle or foot documented as of this encounter (statuses as of 10/29/2022) [facility] History of Past illness Narrative* ProblemNoted Date Resolved DatePrimary osteoarthritis of right hip Osteoarthritis of ankle or foot Overview: Added automatically from request for surgery [id number] Overview: Added automatically from request for surgery [id number] Osteoarthrosis, localized, secondary, ankle or foot documented as of this encounter (statuses as of 10/29/2022) [facility] History of Past illness Narrative* ProblemNoted Date Resolved DatePrimary osteoarthritis of right hip/12/2020 Osteoarthritis of ankle or foot Overview: Added automatically from request for surgery [id number] Overview: Added automatically from request for surgery [id number] Osteoarthrosis, localized, secondary, ankle or foot documented as of this encounter (statuses as of 11/25/2022) [facility] History of Past illness Narrative* ProblemNoted Date Resolved DatePrimary osteoarthritis of right hip Osteoarthritis of ankle or foot Overview: Added automatically from request for surgery [id number] Overview: Added automatically from request for surgery [id number] Osteoarthrosis, localized, secondary, ankle or foot documented as of this encounter (statuses as of 12/12/2022) [facility] History of Past illness Narrative* ProblemNoted Date Resolved DatePrimary osteoarthritis of right hip/12/2020 Osteoarthritis of ankle or foot Overview: Added automatically from request for surgery [id number] Overview: Added automatically from request for surgery [id number] Osteoarthrosis, localized, secondary, ankle or foot documented as of this encounter (statuses as of 12/15/2022) [facility] History of Past illness Narrative* ProblemNoted Date Resolved DatePrimary osteoarthritis of right hip/12/2020 Osteoarthritis of ankle or foot Overview: Added automatically from request for surgery [id number] Overview: Added automatically from request for surgery [id number] Osteoarthrosis, localized, secondary, ankle or foot documented as of this encounter (statuses as of 12/20/2022) [facility] History of Past illness Narrative* ProblemNoted Date Resolved DatePrimary osteoarthritis of right hip Osteoarthritis of ankle or foot Overview: Added automatically from request for surgery [id number] Overview: Added automatically from request for surgery [id number] Osteoarthrosis, localized, secondary, ankle or foot documented as of this encounter (statuses as of 01/13/2023) [facility] History of Past illness Narrative* ProblemNoted Date Resolved DatePrimary osteoarthritis of right hip/12/2020 Osteoarthritis of ankle or foot Overview: Added automatically from request for surgery [id number] Overview: Added automatically from request for surgery [id number] Osteoarthrosis, localized, secondary, ankle or foot documented as of this encounter (statuses as of 01/22/2023) [facility] History of Past illness Narrative* ProblemNoted Date Resolved DatePrimary osteoarthritis of right hip/12/2020 Osteoarthritis of ankle or foot Overview: Added automatically from request for surgery [id number] Overview: Added automatically from request for surgery [id number] Osteoarthrosis, localized, secondary, ankle or foot documented as of this encounter (statuses as of 02/05/2023) [facility] History of Past illness Narrative* ProblemNoted Date Resolved DatePrimary osteoarthritis of right hip/12/2020 Osteoarthritis of ankle or foot Overview: Added automatically from request for surgery [id number] Overview: Added automatically from request for surgery [id number] Osteoarthrosis, localized, secondary, ankle or foot documented as of this encounter (statuses as of 02/05/2023) [facility] History of Past illness Narrative* ProblemNoted Date Resolved DatePrimary osteoarthritis of right hip/12/2020 Osteoarthritis of ankle or foot Overview: Added automatically from request for surgery [id number] Overview: Added automatically from request for surgery [id number] Osteoarthrosis, localized, secondary, ankle or foot documented as of this encounter (statuses as of 02/09/2023) [facility] History of Past illness Narrative* ProblemNoted Date Resolved DatePrimary osteoarthritis of right hip Osteoarthritis of ankle or foot Overview: Added automatically from request for surgery [id number] Overview: Added automatically from request for surgery [id number] Osteoarthrosis, localized, secondary, ankle or foot documented as of this encounter (statuses as of 02/10/2023) [facility] History of Past illness Narrative* ProblemNoted Date Resolved DatePrimary osteoarthritis of right hip Osteoarthritis of ankle or foot Overview: Added automatically from request for surgery [id number] Overview: Added automatically from request for surgery [id number] Osteoarthrosis, localized, secondary, ankle or foot documented as of this encounter (statuses as of 02/13/2023) [facility] History of Past illness Narrative* ProblemNoted Date Resolved DatePrimary osteoarthritis of right hip Osteoarthritis of ankle or foot Overview: Added automatically from request for surgery [id number] Overview: Added automatically from request for surgery [id number] Osteoarthrosis, localized, secondary, ankle or foot documented as of this encounter (statuses as of 02/16/2023) [facility] History of Past illness Narrative* ProblemNoted Date Resolved DatePrimary osteoarthritis of right hip Osteoarthritis of ankle or foot Overview: Added automatically from request for surgery [id number] Overview: Added automatically from request for surgery [id number] Osteoarthrosis, localized, secondary, ankle or foot documented as of this encounter (statuses as of 02/19/2023) [facility] History of Past illness Narrative* ProblemNoted Date Resolved DatePrimary osteoarthritis of right hip Osteoarthritis of ankle or foot Overview: Added automatically from request for surgery [id number] Overview: Added automatically from request for surgery [id number] Osteoarthrosis, localized, secondary, ankle or foot documented as of this encounter (statuses as of 02/19/2023) [facility] History of Past illness Narrative* ProblemNoted Date Diagnosed DateResolved DatePrimary osteoarthritis of right hip12/18/2020 12/19/2020Osteoarthritis of ankle or foot Overview: Added automatically from request for surgery [id number] Overview: Added automatically from request for surgery [id number] Osteoarthrosis, localized, secondary, ankle or foot documented as of this encounter (statuses as of 03/12/2023) [facility] History of Past illness Narrative* ProblemNoted Date Diagnosed DateResolved DatePrimary osteoarthritis of right hip12/18/2020 12/19/2020Osteoarthritis of ankle or foot Overview: Added automatically from request for surgery [id number]/ Overview: Added automatically from request for surgery [id number] Osteoarthrosis, localized, secondary, ankle or foot documented as of this encounter (statuses as of 03/12/2023) [facility] History of Past illness Narrative* ProblemNoted Date Diagnosed DateResolved DatePrimary osteoarthritis of right hip12/18/2020 12/19/2020Osteoarthritis of ankle or foot Overview: Added automatically from request for surgery [id number] Overview: Added automatically from request for surgery [id number] Osteoarthrosis, localized, secondary, ankle or foot documented as of this encounter (statuses as of 03/16/2023) [facility] History of Past illness Narrative* ProblemNoted Date Diagnosed DateResolved DatePrimary osteoarthritis of right hip12/18/2020 12/19/2020Osteoarthritis of ankle or foot Overview: Added automatically from request for surgery [id number] Overview: Added automatically from request for surgery [id number] Osteoarthrosis, localized, secondary, ankle or foot documented as of this encounter (statuses as of 03/19/2023) [facility] History of Past illness Narrative* ProblemNoted Date Diagnosed DateResolved DatePrimary osteoarthritis of right hip12/18/2020 12/19/2020Osteoarthritis of ankle or foot Overview: Added automatically from request for surgery [id number] Overview: Added automatically from request for surgery [id number] Osteoarthrosis, localized, secondary, ankle or foot documented as of this encounter (statuses as of 03/19/2023) [facility] History of Past illness Narrative* ProblemNoted Date Diagnosed DateResolved DatePrimary osteoarthritis of right hip12/18/2020 12/19/2020Osteoarthritis of ankle or foot Overview: Added automatically from request for surgery [id number] Overview: Added automatically from request for surgery [id number] Osteoarthrosis, localized, secondary, ankle or foot documented as of this encounter (statuses as of 03/27/2023) [facility] History of Past illness Narrative* ProblemNoted Date Diagnosed DateResolved DatePrimary osteoarthritis of right hip12/18/2020 12/19/2020Osteoarthritis of ankle or foot Overview: Added automatically from request for surgery [id number] Overview: Added automatically from request for surgery [id number] Osteoarthrosis, localized, secondary, ankle or foot documented as of this encounter (statuses as of 04/03/2023) [facility] History of Past illness Narrative* ProblemNoted Date Diagnosed DateResolved DatePrimary osteoarthritis of right hip12/18/2020 12/19/2020Osteoarthritis of ankle or foot Overview: Added automatically from request for surgery [id number] Overview: Added automatically from request for surgery [id number] Osteoarthrosis, localized, secondary, ankle or foot documented as of this encounter (statuses as of 04/08/2023) [facility] History of Past illness Narrative* ProblemNoted Date Diagnosed DateResolved DatePrimary osteoarthritis of right hip12/18/2020 12/19/2020Osteoarthritis of ankle or foot Overview: Added automatically from request for surgery [id number] Overview: Added automatically from request for surgery [id number] Osteoarthrosis, localized, secondary, ankle or foot documented as of this encounter (statuses as of 04/10/2023) [facility] History of Past illness Narrative* ProblemNoted Date Diagnosed DateResolved DatePrimary osteoarthritis of right hip12/18/2020 12/19/2020Osteoarthritis of ankle or foot Overview: Added automatically from request for surgery [id number] Overview: Added automatically from request for surgery [id number] Osteoarthrosis, localized, secondary, ankle or foot documented as of this encounter (statuses as of 04/15/2023) [facility] History of Past illness Narrative* ProblemNoted Date Diagnosed DateResolved DatePrimary osteoarthritis of right hip12/18/2020 12/19/2020Osteoarthritis of ankle or foot Overview: Added automatically from request for surgery [id number] Overview: Added automatically from request for surgery [id number] Osteoarthrosis, localized, secondary, ankle or foot documented as of this encounter (statuses as of 04/17/2023) [facility] History of Past illness Narrative* ProblemNoted Date Diagnosed DateResolved DatePrimary osteoarthritis of right hip12/18/2020 12/19/2020Osteoarthritis of ankle or foot Overview: Added automatically from request for surgery [id number] Overview: Added automatically from request for surgery [id number] Osteoarthrosis, localized, secondary, ankle or foot documented as of this encounter (statuses as of 04/17/2023) [facility] History of Past illness Narrative* ProblemNoted Date Diagnosed DateResolved DatePrimary osteoarthritis of right hip12/18/2020 12/19/2020Osteoarthritis of ankle or foot Overview: Added automatically from request for surgery [id number] Overview: Added automatically from request for surgery [id number] Osteoarthrosis, localized, secondary, ankle or foot documented as of this encounter (statuses as of 04/27/2023) [facility] History of Past illness Narrative* ProblemNoted Date Diagnosed DateResolved DatePrimary osteoarthritis of right hip12/18/2020 12/19/2020Osteoarthritis of ankle or foot Overview: Added automatically from request for surgery [id number] Overview: Added automatically from request for surgery [id number] Osteoarthrosis, localized, secondary, ankle or foot documented as of this encounter (statuses as of 06/12/2023) [facility] History of Past illness Narrative* ProblemNoted Date Diagnosed DateResolved DatePrimary osteoarthritis of right hip12/18/2020 12/19/2020Osteoarthritis of ankle or foot Overview: Added automatically from request for surgery [id number] Overview: Added automatically from request for surgery [id number] Osteoarthrosis, localized, secondary, ankle or foot documented as of this encounter (statuses as of 06/16/2023) [facility] History of Past illness Narrative* ProblemNoted Date Diagnosed DateResolved DatePrimary osteoarthritis of right hip12/18/2020 12/19/2020Osteoarthritis of ankle or foot Overview: Added automatically from request for surgery [id number] Overview: Added automatically from request for surgery [id number] Osteoarthrosis, localized, secondary, ankle or foot documented as of this encounter (statuses as of 06/25/2023) [facility] History of Past illness Narrative* ProblemNoted Date Diagnosed DateResolved DatePrimary osteoarthritis of right hip12/18/2020 12/19/2020Osteoarthritis of ankle or foot Overview: Added automatically from request for surgery [id number] Overview: Added automatically from request for surgery [id number] Osteoarthrosis, localized, secondary, ankle or foot documented as of this encounter (statuses as of 07/01/2023) [facility] History of Past illness Narrative* ProblemNoted Date Diagnosed DateResolved DatePrimary osteoarthritis of right hip12/18/2020 12/19/2020Osteoarthritis of ankle or foot Overview: Added automatically from request for surgery [id number] Overview: Added automatically from request for surgery [id number] Osteoarthrosis, localized, secondary, ankle or foot documented as of this encounter (statuses as of 07/02/2023) [facility] History of Past illness Narrative* ProblemNoted Date Diagnosed DateResolved DatePrimary osteoarthritis of right hip12/18/2020 12/19/2020Osteoarthritis of ankle or foot Overview: Added automatically from request for surgery [id number] Overview: Added automatically from request for surgery [id number] Osteoarthrosis, localized, secondary, ankle or foot documented as of this encounter (statuses as of 07/02/2023) [facility] History of Past illness Narrative* ProblemNoted Date Diagnosed DateResolved DatePrimary osteoarthritis of right hip12/18/2020 12/19/2020Osteoarthritis of ankle or foot Overview: Added automatically from request for surgery [id number] Overview: Added automatically from request for surgery [id number] Osteoarthrosis, localized, secondary, ankle or foot documented as of this encounter (statuses as of 07/08/2023) [facility] History of Past illness Narrative* ProblemNoted Date Diagnosed DateResolved DatePrimary osteoarthritis of right hip12/18/2020 12/19/2020Osteoarthritis of ankle or foot Overview: Added automatically from request for surgery [id number] Overview: Added automatically from request for surgery [id number] Osteoarthrosis, localized, secondary, ankle or foot documented as of this encounter (statuses as of 07/21/2023) [facility] History of Past illness Narrative* ProblemNoted Date Diagnosed DateResolved DatePrimary osteoarthritis of right hip12/18/2020 12/19/2020Osteoarthritis of ankle or foot Overview: Added automatically from request for surgery [id number] Overview: Added automatically from request for surgery [id number] Osteoarthrosis, localized, secondary, ankle or foot documented as of this encounter (statuses as of 07/21/2023) [facility] History of Past illness Narrative* ProblemNoted Date Diagnosed DateResolved DatePrimary osteoarthritis of right hip12/18/2020 12/19/2020Osteoarthritis of ankle or foot Overview: Added automatically from request for surgery [id number] Overview: Added automatically from request for surgery [id number] Osteoarthrosis, localized, secondary, ankle or foot documented as of this encounter (statuses as of 09/29/2023) [facility] History of Past illness Narrative* ProblemNoted Date Diagnosed DateResolved DatePrimary osteoarthritis of right hip12/18/2020 12/19/2020Osteoarthritis of ankle or foot Overview: Added automatically from request for surgery [id number] Overview: Added automatically from request for surgery [id number] Osteoarthrosis, localized, secondary, ankle or foot documented as of this encounter (statuses as of 09/30/2023) [facility] History of Past illness Narrative* ProblemNoted Date Diagnosed DateResolved DatePrimary osteoarthritis of right hip12/18/2020 12/19/2020Osteoarthritis of ankle or foot Overview: Added automatically from request for surgery [id number] Overview: Added automatically from request for surgery [id number] Osteoarthrosis, localized, secondary, ankle or foot documented as of this encounter (statuses as of 10/01/2023) [facility] History of Past illness Narrative* ProblemNoted Date Diagnosed DateResolved DatePrimary osteoarthritis of right hip12/18/2020 12/19/2020Osteoarthritis of ankle or foot Overview: Added automatically from request for surgery [id number] Overview: Added automatically from request for surgery [id number] Osteoarthrosis, localized, secondary, ankle or foot documented as of this encounter (statuses as of 10/01/2023) [facility] History of Past illness Narrative* ProblemNoted Date Diagnosed DateResolved DatePrimary osteoarthritis of right hip12/18/2020 12/19/2020Osteoarthritis of ankle or foot Overview: Added automatically from request for surgery [id number] Overview: Added automatically from request for surgery [id number] Osteoarthrosis, localized, secondary, ankle or foot documented as of this encounter (statuses as of 10/09/2023) [facility] History of Past illness Narrative* ProblemNoted Date Diagnosed DateResolved DatePrimary osteoarthritis of right hip12/18/2020 12/19/2020Osteoarthritis of ankle or foot Overview: Added automatically from request for surgery [id number] Overview: Added automatically from request for surgery [id number] Osteoarthrosis, localized, secondary, ankle or foot documented as of this encounter (statuses as of 10/14/2023) [facility] History of Past illness Narrative* ProblemNoted Date Diagnosed DateResolved DatePrimary osteoarthritis of right hip12/18/2020 12/19/2020Osteoarthritis of ankle or foot Overview: Added automatically from request for surgery [id number] Overview: Added automatically from request for surgery [id number] Osteoarthrosis, localized, secondary, ankle or foot documented as of this encounter (statuses as of 10/24/2023) [facility] History of Past illness Narrative* ProblemNoted Date Diagnosed DateResolved DatePrimary osteoarthritis of right hip12/18/2020 12/19/2020Osteoarthritis of ankle or foot Overview: Added automatically from request for surgery [id number] Overview: Added automatically from request for surgery [id number] Osteoarthrosis, localized, secondary, ankle or foot documented as of this encounter (statuses as of 10/24/2023) [facility] History of Past illness Narrative* ProblemNoted Date Diagnosed DateResolved DatePrimary osteoarthritis of right hip12/18/2020 12/19/2020Osteoarthritis of ankle or foot Overview: Added automatically from request for surgery [id number] Overview: Added automatically from request for surgery [id number] Osteoarthrosis, localized, secondary, ankle or foot documented as of this encounter (statuses as of 10/28/2023) [facility] History of Past illness Narrative* ProblemNoted Date Diagnosed DateResolved DateOsteoarthritis of ankle or foot Overview: Added automatically from request for surgery [id number] Overview: Added automatically from request for surgery [id number] Osteoarthrosis, localized, secondary, ankle or foot documented as of this encounter (statuses as of 03/27/2023) [facility]uriy Conway [facility] November 26, 2023 1:52pmNote Date/TimeApril 2023 1:[place] [address] Discharge Summary Signed Patient: Jesus Wolf MR#: [id number] : 1955 Acct:[id number] Age/Sex: 68 / F Adm Date: 4 Loc: PO Room: Attending Dr: Yuriy Conway MD Copies to: DO Yuriy Helms MD, [facility] Providers Date of Discharge: 11/26/23 Discharging Provider: [...] Gap 11.9 Documented By: Yuriy Conway MD, [facility] 4 1351 Signed By: <Electronically signed by MD ARMINDA Conway> 11/26/23 1351 [facility] Work Phone: Evaluation note* Diagnosis Systemic lupus erythematosus, unspecified SLE type, unspecified organ involvement status (HCC)- Primary High risk medication use Encounter for long-term (current) use of other medications Long-term use of Plaquenil Encounter for long-term (current) use of other medications documented in this encounter [facility] Diagnosis Systemic lupus erythematosus, unspecified SLE type, unspecified organ involvement status (HCC)- Primary High risk medication use Encounter for long-term (current) use of other medications documented in this encounter [facility] Diagnosis Diarrhea, unspecified type documented in this encounter [facility] Diagnosis Medication refill Issue of repeat prescriptions documented in this encounter [facility] Diagnosis Onset Date Resolution Status Acute alteration in mental status acuteAcute UTIacuteHeadacheacute [facility] Work Phone: Evaluation note* Diagnosis Onset Date Resolution Status Acute alteration in mental status acuteAcute UTIacuteGeneralized weaknessacuteHeadacheacuteLupusacuteObesityacute MONI (obstructive sleep apnea)acuteHLD (hyperlipidemia)chronicHTN (hypertension) chronic [facility] Work Phone: evaluation note* Diagnosis Diarrhea, unspecified type- Primary documented in this encounter [facility] Diagnosis Systemic lupus erythematosus, unspecified SLE type, unspecified organ involvement status ([facility]) High risk medication use Encounter for long-term (current) use of other medications documented in this encounter [facility] Diagnosis C. difficile diarrhea- Primary Intestinal infection due to clostridium difficile documented in this encounter [facility] Diagnosis Encounter for prophylactic measures, unspecified- Primary documented in this encounter [facility] Diagnosis Membranous lupus nephritis syndrome (HCC)- Primary Systemic lupus erythematosus High risk medication use Encounter for long-term (current) use of other medications Systemic lupus erythematosus, unspecified SLE type, unspecified organ involvement status (HCC) Asymptomatic postmenopausal status documented in this encounter [facility] Diagnosis Systemic lupus erythematosus, unspecified SLE type, unspecified organ involvement status (HCC)- Primary Membranous lupus nephritis syndrome (HCC) Systemic lupus erythematosus High risk medication use Encounter for long-term (current) use of other medications Encounter for prophylactic measures, unspecified documented in this encounter [facility] Diagnosis Asymptomatic postmenopausal status documented in this encounter [facility] Diagnosis Asymptomatic postmenopausal status- Primary Membranous [...] (HCC) Primary hyperparathyroidism [facility] Diagnosis Hyperparathyroidism (HCC)- Primary Hyperparathyroidism, unspecified Primary hyperparathyroidism (HCC) Primary hyperparathyroidism documented in this encounter [facility]* Diagnosis Systemic lupus erythematosus, unspecified SLE type, unspecified organ involvement status ([facility])- Primary [facility] in this encounter [facility]* Diagnosis Mixed hyperlipidemia documented in this encounter [facility]* Diagnosis C. difficile colitis- Primary Intestinal infection due to clostridium difficile documented in this encounter [facility]* Diagnosis Osteopenia, unspecified location- Primary S/P parathyroidectomy (HCC) Other 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 status prison (current) use of 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 documented in this encounter [facility] Diagnosis Diarrhea, unspecified type documented in this encounter [facility]* Diagnosis Diarrhea, unspecified type documented in this encounter [facility] Diagnosis Primary osteoarthritis of both feet- Primary Primary osteoarthritis of both feet documented in this encounter [facility]* Diagnosis Systemic lupus erythematosus, unspecified SLE type, unspecified organ involvement status ([facility])- Primary High risk medication use Encounter for long-term (current) use of other medications documented in this encounter [facility] note* Diagnosis Diarrhea, unspecified type- Primary documented in this encounter [facility] Diagnosis Diarrhea, unspecified type documented in this encounter [facility] note* Diagnosis Ulcer of toe of right foot, limited to breakdown of skin ([facility])- Primary Pre-ulcerative calluses Corns and callosities documented in this encounter [facility] Diagnosis Systemic lupus erythematosus, unspecified SLE type, unspecified organ involvement status ([facility])- Primary Need for vaccination against Streptococcus pneumoniae Need for prophylactic vaccination against streptococcus pneumoniae (pneumococcus) documented in this encounter [facility]* Diagnosis Chronic diastolic heart failure (HCC)- Primary Chronic diastolic heart failure documented in this encounter [facility] Diagnosis Ulcer of toe of right foot, limited to breakdown of skin ([facility])- Primary Pre-ulcerative calluses Corns and callosities Cellulitis of second toe of right foot Cellulitis and abscess of toe, unspecified documented in this encounter [facility] Diagnosis Systemic lupus erythematosus, unspecified SLE type, unspecified organ involvement status (HCC) High risk medication use Encounter for long-term (current) use of other medications documented in this encounter [facility] Diagnosis IBD (inflammatory bowel disease)- Primary Other and unspecified noninfectious gastroenteritis and colitis documented in this encounter [facility] Diagnosis Ulcer of toe of right foot, limited to breakdown of skin (HCC)- Primary Pre-ulcerative calluses Corns and callosities documented in this encounter [facility] Diagnosis Systemic lupus erythematosus, unspecified SLE type, unspecified organ involvement status (HCC)- Primary documented in this encounter [facility] Diagnosis Diarrhea, unspecified type Epigastric pain Abdominal pain, epigastric documented in this encounter [facility] Diagnosis Calculus of gallbladder without cholecystitis without obstruction Calculus of gallbladder without mention of cholecystitis or obstruction documented in this encounter [facility] Diagnosis IBD (inflammatory bowel disease) Other and unspecified noninfectious gastroenteritis and colitis documented in this encounter [facility] Diagnosis Systemic lupus erythematosus, unspecified SLE type, unspecified organ involvement status (HCC)- Primary Thin blood (HCC) Thrombocytopenia, unspecified documented in this encounter [facility] Diagnosis Other ulcerative colitis without complication (HCC)- Primary Gastroesophageal reflux disease without esophagitis Esophageal reflux [facility] Diagnosis Diarrhea, unspecified type documented in this encounter [facility] Diagnosis Mixed hyperlipidemia- Primary Hypomagnesemia Disorders of magnesium metabolism documented in this encounter [facility] Diagnosis Chronic kidney disease, unspecified CKD stage- Primary Systemic lupus erythematosus, unspecified SLE type, unspecified organ involvement status (HCC) documented in this encounter [facility] Diagnosis Systemic lupus erythematosus, unspecified SLE type, unspecified organ involvement status (HCC)- Primary High risk medication use Encounter for long-term (current) use of other medications documented in this encounter [facility] Diagnosis Pain in left foot- Primary Pain in limb documented in this encounter [facility] Diagnosis Ulcer of toe of right foot, limited to breakdown of skin (HCC)- Primary Pre-ulcerative calluses Corns and callosities Osteoarthritis of midtarsal joint of left foot Osteoarthritis of midtarsal joint of right foot documented in this encounter [facility] Diagnosis Primary osteoarthritis of both feet- Primary Primary osteoarthritis of both feet documented in this encounter [facility] Diagnosis Atypical atrial flutter (CMS/HCC)- Primary Paroxysmal atrial fibrillation (CMS/HCC) Atrial fibrillation Essential hypertension Unspecified essential hypertension Obstructive sleep apnea Obstructive sleep apnea (adult) (pediatric) Never smoked any substance Other forms of systemic lupus erythematosus, unspecified organ involvement status (CMS/HCC) Morbid obesity (CMS/HCC) Morbid obesity High risk medication use Dyslipidemia Other and unspecified hyperlipidemia documented in this encounter [facility] Work Phone: evaluation noteNo assessment information available [facility] Work Phone: Evaluation note* Diagnosis 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 [facility] Diagnosis Systemic lupus erythematosus, unspecified SLE type, unspecified organ involvement status ([facility])- Primary documented in this encounter [facility] Diagnosis Pre-ulcerative calluses- Primary Corns and callosities Osteoarthritis of midtarsal joint of left foot Osteoarthritis of midtarsal joint of right foot documented in this encounter [facility] Diagnosis Osteopenia, unspecified location- Primary S/P parathyroidectomy Other 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 status 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 Vitamin D deficiency disease Unspecified vitamin D deficiency [facility]* Diagnosis 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 documented in this encounter [facility] Diagnosis Paroxysmal atrial fibrillation (CMS/HCC)- Primary Atrial fibrillation High risk medication use Essential hypertension Unspecified essential hypertension 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 Obstructive sleep apnea Obstructive sleep apnea (adult) (pediatric) BMI 40.0-44.9, adult (CMS/HCC) Never smoked any substance Systemic lupus erythematosus, unspecified SLE type, unspecified organ involvement status (CMS/HCC) documented in this encounter [facility] Work Phone: evaluation note* Diagnosis Paroxysmal atrial fibrillation (CMS/HCC) Atrial fibrillation documented in this encounter [facility] Work Phone: Evaluation note* Diagnosis Atypical atrial flutter (CMS/HCC)- Primary Paroxysmal atrial fibrillation (CMS/HCC) Atrial fibrillation At medium risk for stroke Post-menopausal bleeding Postmenopausal bleeding Epistaxis documented in this encounter [facility] Work Phone: Evaluation note* Diagnosis Pre-ulcerative calluses- Primary Corns and callosities Osteoarthritis of midtarsal joint of left foot Hammertoe, bilateral Hav (hallux abducto valgus), unspecified laterality Pain due to onychomycosis of toenails of both feet documented in this encounter [facility] Diagnosis Diarrhea, unspecified type- Primary Other ulcerative colitis without complication (HCC) documented in this encounter [facility]* Diagnosis Systemic lupus erythematosus, unspecified SLE type, unspecified organ involvement status (HCC)- Primary documented in this encounter [facility] Diagnosis Systemic lupus erythematosus, unspecified SLE type, unspecified organ involvement status (HCC)- Primary documented in this encounter [facility]* Diagnosis Persistent atrial fibrillation (Multi)- Primary Atrial fibrillation Atypical atrial flutter (Multi) Persistent atrial fibrillation (Multi) Atrial fibrillation Atypical atrial flutter (Multi) documented in this encounter [facility] Work Phone: Evaluation note* Diagnosis Systemic lupus erythematosus, unspecified SLE type, unspecified organ involvement status (HCC)- Primary documented in this encounter [facility] Diagnosis Systemic lupus erythematosus, unspecified SLE type, unspecified organ involvement status (HCC) High risk medication use Encounter for long-term (current) use of other medications documented in this encounter [facility] Diagnosis Osteopenia of multiple sites- Primary S/P parathyroidectomy Other 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 status 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 Acute pain of left knee documented in this encounter [facility] Diagnosis Osteopenia of multiple sites S/P parathyroidectomy Other 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 status prison (current) use of 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 Acute pain of left knee documented in this encounter [facility] Diagnosis Osteopenia, unspecified location S/P parathyroidectomy Other 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 status prison (current) use of 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 Vitamin D deficiency disease Unspecified vitamin D deficiency documented in this encounter [facility] note* Diagnosis Systemic lupus erythematosus, unspecified SLE type, unspecified organ involvement status (HCC)- Primary documented in this encounter [facility] note* Diagnosis Primary osteoarthritis of left knee- Primary Primary localized osteoarthrosis, lower leg Tendinosis of quadriceps tendon documented in this encounter [facility] note* Diagnosis Membranous glomerulonephritis Nephritis and nephropathy, not specified as acute or chronic, with lesion of membranous glomerulonephritis documented in this encounter [facility] note* Diagnosis Preop examination- Primary Preoperative [...] status (HCC)- Primary documented in this encounter [facility] note* Diagnosis Preop examination- Primary Preoperative [...] unspecified chronicity- Primary documented in this encounter [facility] note* Diagnosis Preop examination- Primary Preoperative [...] unspecified chronicity- Primary documented in this encounter [facility] note* Diagnosis Preop examination- Primary Preoperative [...] unspecified chronicity- Primary documented in this encounter [facility] note* Diagnosis Preop examination- Primary Preoperative [...] pain, unspecified chronicity documented in this encounter [facility] note* Diagnosis Preop examination- Primary Preoperative [...] pain, unspecified chronicity documented in this encounter [facility] note* Diagnosis Pain Generalized pain Preop [...] 40 Morbid obesity documented in this encounter [facility] note* Diagnosis Preop examination- Primary Preoperative [...] status (HCC)- Primary documented in this encounter [facility] note* Diagnosis Preop examination- Primary Preoperative [...] status (HCC)- Primary documented in this encounter [facility] note* Diagnosis Paroxysmal atrial fibrillation (Multi)- Primary Atrial fibrillation documented in this encounter [facility] Work Phone: Evaluation note* Diagnosis Paroxysmal atrial fibrillation (Multi) Atrial fibrillation Epistaxis Anemia, unspecified type Preop testing Unspecified pre-operative examination documented in this encounter [facility] Work Phone: Evaluation note* Diagnosis Paroxysmal atrial fibrillation (Multi) Atrial fibrillation Epistaxis Anemia, unspecified type Preop testing Unspecified pre-operative examination documented in this encounter [facility] Work Phone: Evaluation note* Diagnosis Paroxysmal atrial fibrillation (Multi)- Primary Atrial fibrillation documented in this encounter [facility] Work Phone: Evaluation note* Diagnosis Unilateral primary osteoarthritis, left knee- Primary documented [facility] this encounter [facility]* Diagnosis Unilateral primary osteoarthritis, left knee- Primary documented in this encounter [facility]* Diagnosis Paroxysmal atrial fibrillation (Multi)- Primary Atrial fibrillation High risk medication use Chronic diastolic heart failure Shortness of breath Essential hypertension Unspecified essential hypertension Aneurysm of ascending aorta without rupture ([facility]-HCC) Obstructive sleep apnea Obstructive sleep apnea (adult) (pediatric) Never smoked any substance BMI 39.0-39.9,adult Deep vein thrombosis (DVT) of axillary vein of left upper extremity, unspecified chronicity (Multi) Other forms of systemic lupus erythematosus, unspecified organ involvement status (Multi) documented in this encounter [facility] Work Phone: evaluation note* Diagnosis Preop examination- Primary Preoperative examination, [...] involvement status (HCC) documented in this encounter [facility] Diagnosis Paroxysmal atrial fibrillation (Multi) Atrial fibrillation Epistaxis Anemia, unspecified type Preop testing Unspecified pre-operative examination documented in this encounter [facility] Work Phone: Evaluation note* Diagnosis Chronic diastolic heart failure Shortness of breath documented in this encounter [facility] Work Phone: Evaluation note* Diagnosis Viral upper respiratory tract infection- Primary Acute upper respiratory infections of unspecified site documented in this encounter [facility]* Diagnosis Preop examination- Primary Preoperative [...] without complication (HCC) documented in this [facility] Diagnosis Medicare annual wellness visit, subsequent- Primary Screening for depression documented in this encounter [facility]* Diagnosis Essential hypertension- Primary Unspecified essential hypertension Localized osteoarthritis of left knee Varicose veins of left upper extremity Localized swelling, mass and lump, head Mixed hyperlipidemia Acquired hypothyroidism Unspecified hypothyroidism Hyperparathyroidism ([facility]-HCC) Hyperparathyroidism, unspecified Obesity, morbid ([facility]) Morbid obesity Encounter for screening mammogram for malignant neoplasm of breast Anxiety Anxiety state, unspecified documented in this encounter [facility]* Diagnosis Acute deep vein thrombosis (DVT) of brachial vein of left upper extremity (CMS-HCC)- Primary Localized osteoarthritis of right knee Essential hypertension Unspecified essential hypertension Obesity, morbid ([facility]-HCC) Morbid obesity Need for immunization against influenza Need for prophylactic vaccination and inoculation against influenza documented in this encounter [facility]* Diagnosis Acute deep vein thrombosis (DVT) of brachial vein of left upper extremity ([facility])- Primary Paroxysmal atrial fibrillation ([facility]) Atrial fibrillation Stage 3a chronic kidney disease ([facility]) Localized osteoarthritis of right knee Obesity, morbid ([facility]) Morbid obesity documented in this encounter [facility]* Diagnosis Upper respiratory tract infection, unspecified type- Primary Pharyngitis, unspecified etiology documented in this encounter [facility]* Diagnosis Preop examination- Primary Preoperative examination, unspecified Other ulcerative colitis without complication (HCC) Atrial fibrillation, unspecified type (HCC) Essential hypertension Unspecified essential hypertension Sleep apnea, unspecified type Membranous glomerulonephritis Nephritis and nephropathy, not specified as acute or chronic, with lesion of membranous glomerulonephritis Systemic lupus erythematosus, unspecified SLE type, unspecified organ involvement status ([facility]) Edema, unspecified type Obesity, Class III, BMI >= 40 Morbid obesity Pre-op evaluation- Primary Preoperative examination, unspecified Ascending aortic aneurysm, unspecified whether ruptured ([facility]) Obesity, Class II, BMI 35-39.9 Obesity, unspecified [...] status (HCC)- Primary documented in this encounter [facility] Diagnosis Obstructive sleep apnea- Primary Obstructive sleep apnea (adult) (pediatric) Dyspnea on exertion Other dyspnea and respiratory abnormality Systemic lupus erythematosus, unspecified SLE type, unspecified organ involvement status ([facility]) Acute deep vein thrombosis (DVT) of brachial vein of left upper extremity ([facility]) Obesity, morbid ([facility]) Morbid obesity Chronic diastolic heart failure ([facility]) Atypical atrial flutter ([facility]) documented in this encounter [facility]* Diagnosis Preop examination- Primary Preoperative [...] Hypertension, unspecified type documented in this encounter [facility] note* Diagnosis Preop examination- Primary Preoperative [...] this encounter [facility] note* Diagnosis Preop examination- Primary Preoperative [...] status (HCC)- Primary documented in this encounter [facility] Diagnosis Localized osteoarthritis of left knee- Primary [facility] Diagnosis Preop examination- Primary Preoperative examination, [...] this encounter [facility] note* Diagnosis Preop examination- Primary Preoperative [...] status (HCC)- Primary [facility] this [facility] Diagnosis Paroxysmal atrial fibrillation (Multi)- Primary Atrial fibrillation Presence of Watchman left atrial appendage closure device Deep vein thrombosis (DVT) of upper extremity, unspecified chronicity, unspecified laterality, unspecified vein prison current use of anticoagulant therapy Chronic diastolic [...] involvement status (Multi) documented in this encounter [facility] Work Phone: Evaluation note* Diagnosis Acute right ankle pain- Primary Pedal edema Edema documented in this encounter [facility]* Diagnosis Preop examination- Primary Preoperative [...] Pain in limb documented in this encounter [facility] note* Diagnosis Preop examination- Primary Preoperative [...] of right foot documented in this encounter [facility] note* Diagnosis Preop examination- Primary Preoperative [...] Pain in limb documented in this [facility] Diagnosis Preop examination- Primary Preoperative examination, [...] 40 Morbid obesity documented in this encounter [facility] Diagnosis Intertrigo- Primary Other specified erythematous condition Essential hypertension Unspecified essential hypertension Closed nondisplaced fracture of navicular bone of right foot with routine healing, subsequent encounter Paroxysmal atrial fibrillation ([facility]-HCC) Atrial fibrillation Obesity, morbid ([facility]) Morbid obesity Chronic depression documented in this encounter [facility]* Diagnosis Preop examination- Primary Preoperative [...] 40 Morbid obesity Left-sided epistaxis- Primary Epistaxis 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 Long-term (current) use of anticoagulants documented [facility] this [facility]* Diagnosis Preop examination- Primary Preoperative examination, [...] subsequent encounter- Primary documented in this encounter [facility] Diagnosis Preop examination- Primary Preoperative examination, [...] of right foot documented in this encounter [facility] note* Diagnosis Preop examination- Primary Preoperative [...] initial encounter- Primary documented in this encounter [facility] note* Diagnosis Preop examination- Primary Preoperative [...] Other diseases of nasal cavity and sinuses prison (current) use of anticoagulants Long-term (current) use of anticoagulants documented in this encounter [facility] note* Diagnosis Preop examination- Primary Preoperative [...] status (HCC)- Primary documented in this encounter [facility] note* Diagnosis Pre-operative clearance- Primary Unspecified pre-operative examination BMI 40.0-44.9, adult (Multi) Paroxysmal atrial fibrillation (Multi) Atrial fibrillation 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 Deep vein thrombosis (DVT) of upper extremity, unspecified chronicity, unspecified laterality, unspecified vein Presence of Watchman left atrial appendage closure device documented in this encounter [facility] Work Phone: Evaluation note* Diagnosis Preop examination- [...] Pain in limb documented in this encounter [facility] note* Diagnosis Preop examination- Primary Preoperative [...] and foot, right [facility] Diagnosis Preop examination- Primary Preoperative examination, [...] of bone, unspecified documented in this encounter [facility] note* Diagnosis Preop examination- Primary Preoperative [...] and cartilage, unspecified [facility] Preop examination- Primary Preoperative examination, [...] and cartilage, unspecified [facility] Diagnosis Preop examination- Primary Preoperative [...] unspecified SLE type, unspecified organ involvement status ([facility]) Obesity, Class III, BMI >= 40 Morbid [...] EDT Associated Problem(s): SLE (systemic lupus erythematosus) ([facility]) Assessment: in remission on meds, follows with [...] resume once hemostasis obtained. Abisai Barraza MSN, RIGGING MAN-GUIDE EXCURSION, PMHNP-BC (Our [facility] office later clarified that [...] radiofrequency ablation with pulmonary vein isolation at [facility] that was done 3 times started in [...] 141/78 11/16/2024 136/64 documented in this encounter [facility] Diagnosis Preop examination- Primary Preoperative [...] Charcot arthropathy- Primary documented in this encounter [facility]* Diagnosis Preop examination- Primary Preoperative examination, [...] Charcot arthropathy- Primary documented in this encounter [facility] Diagnosis Diarrhea of presumed infectious origin- Primary documented in this [facility] Diagnosis Preop examination- Primary Preoperative [...] >= 40 Morbid obesity Primary osteoarthritis of both feet- Primary documented in this encounter [facility] Diagnosis Preop examination- Primary Preoperative examination, [...] Charcot arthropathy- Primary [facility]* Initiate Home Health Time Frame: 1 Day, Location: Determined By Patient Additional Instructions Home Health to manage care: - Full code - PT/OT eval and treat - Routine vital signs - Medication management and education - [facility] Phone[facility] Work Phone: InstructionsNot on filedocumented in [...] referral (narrative)* Diagnostic Procedure Only (Routine) - AuthorizedSpecialtyDiagnoses / ProceduresReferred By Contact Referred To ContactMOLECULAR & FUNCTIONAL IMAGING Diagnoses Hyperparathyroidism (HCC) Procedures NM PARATHYROID W SPECT/CT PARATHYROID IMAGING W/TOMOGRAPHIC SPECT & CT Monica Booker MD [address] [place] [address] Molecular & Functional Imaging [address] [place] [address] Referral IDStatusReasonStart DateExpiration DateVisits RequestedVisits [id number] Auto-Generated Referral [facility] for referral (narrative)* Diagnostic Procedure Only (Routine) - ClosedSpecialtyDiagnoses / ProceduresReferred By ContactReferred To ContactMOLECULAR & FUNCTIONAL IMAGING Diagnoses Hyperparathyroidism (HCC) Procedures NM PARATHYROID W SPECT/CT PARATHYROID IMAGING W/TOMOGRAPHIC SPECT & CT Monica Booker MD [address] [place] [address] Molecular & Functional Imaging [address] [place] [address] Referral IDStatusReasonStart DateExpiration DateVisits RequestedVisits [id number] Auto-Generated Referral [facility] for referral (narrative)* Outpatient Procedure (Routine) - AuthorizedSpecialtyDiagnoses / ProceduresReferred By ContactReferred To [facility] Diagnoses IBD (inflammatory bowel disease) Procedures COLONOSCOPY DIAGNOSTIC COLONOSCOPY FLX DX W/COLLJ SPEC WHEN Dione Starr MD [address] [place] [address] [facility] [place] [address] [place] [address] Referral IDStatusReasonStart DateExpiration DateVisits RequestedVisits [id number] Auto-Generated Referral [facility] for referral (narrative)* Outpatient Procedure (Routine) - ClosedSpecialtyDiagnoses / ProceduresReferred By ContactReferred To Contact [facility] Diagnoses Diarrhea, unspecified type Epigastric pain Procedures EGD DIAGNOSTIC ESOPHAGOGASTRODUODENOSCOPY TRANSORAL DIAGNOSTIC Dione Frances MD [address] [place] [address] [address] Referral IDStatusReasonStart DateExpiration DateVisits RequestedVisits [id number] Auto-Generated Referral / * Outpatient Procedure (Routine) - ClosedSpecialtyDiagnoses / ProceduresReferred By ContactReferred To [facility] Diagnoses Diarrhea, unspecified type Epigastric pain Procedures COLONOSCOPY DIAGNOSTIC COLONOSCOPY FLX DX W/COLLJ SPEC WHEN Dione Starr MD [address] [place] [address] [address] Referral IDStatusReasonStart DateExpiration DateVisits RequestedVisits [id number] Auto-Generated Referral / [facility] for referral (narrative)* Outpatient Procedure (Routine) - ClosedSpecialtyDiagnoses / ProceduresReferred By ContactReferred To Contact [facility] Diagnoses IBD (inflammatory bowel disease) Procedures COLONOSCOPY DIAGNOSTIC COLONOSCOPY FLX DX W/COLLJ SPEC WHEN Dione Starr MD [address] [facility] [place] [address] [place] [address] Referral IDStatusReasonSttell city DateExpiration DateVisits RequestedVisits [id number] Auto-Generated Referral / [facility] for referral (narrative)* Diagnostic Procedure Only (Routine) - Pending ReviewSpecialtyDiagnoses / ProceduresReferred By Contact Referred To ContactXR IMAGING Diagnoses Pain in left foot Procedures XR FOOT GENERAL 3V AP/LAT/OBL LEFT RADEX FOOT COMPLETE MINIMUM 3 VIEWS Beverly Franco, KHADIJAH [address] [place] [address] Xr Imaging [facility] Referral IDStatusReasonSttell city DateExpiration DateVisits RequestedVisits [id number] Review Auto-Generated Referral [facility] for referral (narrative)* Diagnostic Procedure Only (Routine) - Pending ReviewSpecialtyDiagnoses / ProceduresReferred By Contact Referred To ContactXR IMAGING Diagnoses Osteopenia, unspecified location S/P parathyroidectomy prison (current) use of 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 Vitamin D deficiency disease Procedures DXA-AXIAL SKELETON WITH VFA DXA BONE DENSITY STUDY AXIAL SKELETON Obdulia Ann PA-C [address] [address] X[facility] Imaging [facility] Referral IDStatusReasonStart DateExpiration DateVisits RequestedVisits [id number] Review Auto-Generated Referral / [facility] for referral (narrative)* Diagnostic Procedure Only (Routine) - AuthorizedSpecialtyDiagnoses / ProceduresReferred By Contact Referred To ContactUS IMAGING Diagnoses Membranous glomerulonephritis Procedures US KIDNEY/BLADDER US RETROPERITONEAL REAL TIME W/IMAGE COMPLETE Radu Salazar MD [address] [place] [id number] [facility] [place] [address] Referral IDStatusReasonStart DateExpiration DateVisits RequestedVisits [id number] Auto-Generated Referral [facility] for referral (narrative)* Diagnostic Procedure Only (Routine) - ClosedSpecialtyDiagnoses / ProceduresReferred By ContactReferred To ContactXR IMAGING Diagnoses Osteopenia of multiple sites S/P parathyroidectomy 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 Acute pain of left knee Procedures XR KNEE GENERAL 4V AP BOTH/PA BOTH/LAT/MERC LEFT RADIOLOGIC EXAM KNEE COMPLETE 4/MORE VIEWS Obdulia Ann PA-C [address] [place] [address] X[facility] [place] [address] Referral IDStatusReasonStart DateExpiration DateVisits RequestedVisits [id number] Auto-Generated Referral [facility] for referral (narrative)* Diagnostic Procedure Only (Routine) - ClosedSpecialtyDiagnoses / ProceduresReferred By ContactReferred To ContactXR IMAGING Diagnoses Osteopenia of multiple sites S/P parathyroidectomy 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 Acute pain of left knee Procedures XR KNEE GENERAL 4V AP BOTH/PA BOTH/LAT/MERC LEFT RADIOLOGIC EXAM KNEE COMPLETE 4/MORE VIEWS Obdulia Ann PA-C [address] [place] [id number] [facility] [place] [address] Referral IDStatusReasonStart DateExpiration DateVisits RequestedVisits [id number] Auto-Generated Referral [facility] for referral (narrative)* Diagnostic Procedure Only (Routine) - ClosedSpecialtyDiagnoses / ProceduresReferred By ContactReferred To ContactXR IMAGING Diagnoses Osteopenia, unspecified location S/P parathyroidectomy 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 Vitamin D deficiency disease Procedures DXA-AXIAL SKELETON WITH VFA DXA BONE DENSITY STUDY AXIAL SKELETON Obdulia Ann PA-C [address] [address] [place] [address] Referral IDStatusReasonStart DateExpiration DateVisits RequestedVisits [id number] Auto-Generated Referral / [facility] for referral (narrative)* Diagnostic Procedure Only (Routine) - ClosedSpecialtyDiagnoses / ProceduresReferred By ContactReferred To ContactXR IMAGING Diagnoses Left knee pain, unspecified chronicity Procedures XR KNEE SPECIFY 1V LEFT RADIOLOGIC EXAMINATION KNEE 1/2 VIEWS Alfredo Norwood PA-C [address] [place] [address] [place] [address] Referral IDStatusReasonStart DateExpiration DateVisits RequestedVisits [id number] Auto-Generated Referral [facility] for referral (narrative)* Diagnostic Procedure Only (Routine) - ClosedSpecialtyDiagnoses / ProceduresReferred By ContactReferred To ContactXR IMAGING Diagnoses Left knee pain, unspecified chronicity Procedures XR KNEE SPECIFY 1V LEFT RADIOLOGIC EXAMINATION KNEE 1/2 VIEWS Alfredo Norwood PA-C [address] [place] [address] [place] [address] Referral IDStatusReasonStart DateExpiration DateVisits RequestedVisits [id number] Auto-Generated Referral [facility] for visit Narrative* Diagnostic Procedure Only (Routine) - ClosedSpecialtyDiagnoses / ProceduresReferred By ContactReferred To Contact MOLECULAR & FUNCTIONAL IMAGING Diagnoses Hyperparathyroidism (HCC) Procedures NM PARATHYROID W SPECT/CT PARATHYROID IMAGING W/TOMOGRAPHIC SPECT & CT Monica Booker MD [address] [place] [phone] Molecular & Functional Imaging [address] [place] [address] Referral IDStatusReasonStart DateExpiration DateVisits RequestedVisits [id number] Auto-Generated Referral [facility] for visit Narrative* Outpatient Procedure (Routine) - ClosedSpecialtyDiagnoses / ProceduresReferred By ContactReferred To Contact [facility] Diagnoses Diarrhea, unspecified type Epigastric pain Procedures EGD DIAGNOSTIC ESOPHAGOGASTRODUODENOSCOPY TRANSORAL DIAGNOSTIC Dione Frances MD [address] [place] [address] [facility] Disease [address] [address] Referral IDStatusReasonChestnutridge DateExpiration DateVisits RequestedVisits [id number] Auto-Generated Referral / [facility] for visit Narrative* Outpatient Procedure (Routine) - ClosedSpecialtyDiagnoses / ProceduresReferred By ContactReferred To Contact [facility] DISEASE JASPER Diagnoses IBD (inflammatory bowel disease) Procedures COLONOSCOPY DIAGNOSTIC COLONOSCOPY FLX DX W/COLLJ SPEC WHEN PFRMD Dione Frances MD [address] [place] [address] [facility] Disease [address] [address] Referral IDStatusReasonStart DateExpiration DateVisits RequestedVisits [id number] Auto-Generated Referral / [facility] for visit Narrative* Diagnostic Procedure Only (Routine) - ClosedSpecialtyDiagnoses / ProceduresReferred By ContactReferred To Contact XR IMAGING Diagnoses Osteopenia, unspecified location S/P parathyroidectomy prison (current) use of 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 Vitamin D deficiency disease Procedures DXA-AXIAL SKELETON WITH VFA DXA BONE DENSITY STUDY AXIAL SKELETON Obdulia Ann PA-C [address] [address] Xr Imaging [place] [address] Referral IDStatusReasonSttell city DateExpiration DateVisits RequestedVisits [id number] Auto-Generated Referral [facility] for visit Narrative* Auth/CertSpecialtyDiagnoses / ProceduresReferred By ContactReferred To Contact Diagnoses Paroxysmal atrial fibrillation (Multi) Epistaxis Anemia, unspecified type Preop testing Paroxysmal atrial fibrillation (Multi) [I48.0] Epistaxis [R04.0] Anemia, unspecified type [D64.9] Preop testing [Z01.818] Procedures ME PERQ CLSR TCAT L ATR APNDGE W/ENDOCARDIAL IMPLNT Left [place]rial [place] [address] [place] [address] [facility] [address] [address] [facility] [address] [place] [address] Referral IDStatusBisiRussellville Hospital DateExpiration DateVisits RequestedVisits [id number] [facility] Work Phone: [facility] Narrative* Imaging (Routine) - Pending ReviewSpecialtyDiagnoses / ProceduresReferred By ContactReferred To ContactRadiology Diagnoses Paroxysmal atrial fibrillation (Multi) Epistaxis Anemia, unspecified type Preop testing Procedures [place] [address] [place] [address] Phone: tel: fax: Referral IDStatBisiasonStart DateExpiration DateVisits RequestedVisits [id number] Review Perform Procedure / [facility] Work Phone: reason for visit Narrative* CV Imaging (Routine) - AuthorizedSpecialtyDiagnoses / ProceduresReferred By ContactReferred To ContactCardiology Diagnoses Chronic diastolic heart failure Shortness of breath Procedures Transthoracic Echo Complete ME ECHO TTHRC R-T 2D W/WOM-MODE COMPL SPEC&COLR D Yuriy Conway MD [address] [facility] [address] [place] [address] Phone: tel: fax: Referral IDStatusReasonStart DateExpiration DateVisits RequestedVisits [id number] Perform Procedure [facility] Work Phone: reason for visit Narrative* MRI/CT (Routine) - Closed SpecialtyDiagnoses / ProceduresReferred By ContactReferred To ContactCT IMAGING Diagnoses Closed fracture of left foot, initial encounter Procedures CT FOOT WO IVCON LEFT CT LOWER EXTREMITY W/[place] [address] [place] [address] Phone: tel: fax: [place] [address] Referral IDStatusReRussellville Hospital DateExpiration DateVisits RequestedVisits [id number] Auto-Generated Referral / [facility] Summary Purpose Family History Relationship Condition Age at Onset Recorded Date/T myrtle Not Specified Hypertension Unknown Unknown Family Member Name Dates Details Family history of malignant neoplasm: Mother(V16.9, Z80.9) Status:ActiveFamily history of cardiac disorder: Mother, Father(V17.49, Z82.49) Status:ActiveFamily history of hyperlipidemia: Mother, Father(V18.19, Z83.438) Status:ActiveFamily history of hypertension: Mother, Father(V17.49, Z82.49) Status:Active Unknown Family Member Name Dates Details Family history of malignant neoplasm: Mother(V16.9, Z80.9) Status:ActiveFamily history of cardiac disorder: Mother, Father(V17.49, Z82.49) Status:ActiveFamily history of hyperlipidemia: Mother, Father(V18.19, Z83.438) Status:ActiveFamily history of hypertension: Mother, Father(V17.49, Z82.49) Status:Active Unknown Family Member Name Dates Details Family history of malignant neoplasm: Mother(V16.9, Z80.9) Status:ActiveFamily history of cardiac disorder: Mother, Father(V17.49, Z82.49) Status:ActiveFamily history of hyperlipidemia: Mother, Father(V18.19, Z83.438) Status:ActiveFamily history of hypertension: Mother, Father(V17.49, Z82.49) Status:Active Unknown Family Member Name Dates Details Family history of malignant neoplasm: Mother(V16.9, Z80.9) Status:ActiveFamily history of cardiac disorder: Mother, Father(V17.49, Z82.49) Status:ActiveFamily history of hyperlipidemia: Mother, Father(V18.19, Z83.438) Status:ActiveFamily history of hypertension: Mother, Father(V17.49, Z82.49) Status:Active Unknown Family Member Name Dates Details Family history of malignant neoplasm: Mother(V16.9, Z80.9) Status:ActiveFamily history of cardiac disorder: Mother, Father(V17.49, Z82.49) Status:ActiveFamily history of hyperlipidemia: Mother, Father(V18.19, Z83.438) Status:ActiveFamily history of hypertension: Mother, Father(V17.49, Z82.49) Status:Active Unknown Family Member Name Dates Details Family history of malignant neoplasm: Mother(V16.9, Z80.9) Status:ActiveFamily history of cardiac disorder: Mother, Father(V17.49, Z82.49) Status:ActiveFamily history of hyperlipidemia: Mother, Father(V18.19, Z83.438) Status:ActiveFamily history of hypertension: Mother, Father(V17.49, Z82.49) Status:Active Unknown Family Member Name Dates Details Family history of malignant neoplasm: Mother(V16.9, Z80.9) Status:ActiveFamily history of cardiac disorder: Mother, Father(V17.49, Z82.49) Status:ActiveFamily history of hyperlipidemia: Mother, Father(V18.19, Z83.438) Status:ActiveFamily history of hypertension: Mother, Father(V17.49, Z82.49) Status:Active Relationship Condition Age at Onset Recorded Date/T myrtle mother Malignant neoplasm of colon Unknown HypertensionUnknownsisterHypertensionUnknownfatherHypertensionUnknown Advance Directives TypeDate RecordedPatient RepresentativeExplanationAdvance Directive(s)Advance Directive(s)10/25/2021 12:01 PMAdvance Directive(s)10/23/2021 5:50 PMAdvance Directive(s)09/12/2021 6:34 AMAdvance Directive(s)12/18/2020 7:36 AMAdvance Directive(s)12/06/2020 2:25 PMAdvance Directive(s)11/30/2020 2:39 PMAdvance Directive(s)10/22/2020 11:14 AMAdvance Directive(s)07/23/2020 9:48 AMAdvance Directive(s)06/14/2020 10:44 AMAdvance Directive(s)01/11/2020 1:39 PMAdvance Directive(s)01/10/2020 8:48 AMAdvance Directive(s)01/17/2019 10:26 AMAdvance Directive(s)08/16/2018 11:53 AMAdvance Directive(s)05/10/2018 9:44 AMAdvance Directive(s)11/02/2017 1:25 PMAdvance Directive(s)07/31/2016 2:08 PMAdvance Directive(s)02/12/2016 2:57 PMTypeDate RecordedPatient RepresentativeExplanation Advance Directive(s)Advance Directive(s)10/25/2021 12:01 PMAdvance Directive(s) 10/23/2021 5:50 PMAdvance Directive(s)09/12/2021 6:34 AMAdvance Directive(s) 12/18/2020 7:36 AMAdvance Directive(s)12/06/2020 2:25 PMAdvance Directive(s) 11/30/2020 2:39 PMAdvance Directive(s)10/22/2020 11:14 AMAdvance Directive(s) 07/23/2020 9:48 AMAdvance Directive(s)06/14/2020 10:44 AMAdvance Directive(s) 01/11/2020 1:39 PMAdvance Directive(s)01/10/2020 8:48 AMAdvance Directive(s) 01/17/2019 10:26 AMAdvance Directive(s)08/16/2018 11:53 AMAdvance Directive(s) 05/10/2018 9:44 AMAdvance Directive(s)11/02/2017 1:25 PMAdvance Directive(s) 07/31/2016 2:08 PMAdvance Directive(s)02/12/2016 2:57 PM Advance Directive Response Recorded Date/ Time Advance Directives No June 18, 2017 4:00pm Advance Directive Response Recorded Date/ Time Advance Directives No June 18, 2017 3:00pm Medications Administered Section Medication OrderMAR ActionAction DateDoseRateSite acetaminophen 1,000 mg tab(s) (TYLENOL) 1,000 mg, ORAL, ONCE, 1 dose, On Thu12/09/21 at 1130 Given12/09/2021 12:15 PM EDT1,000 mg belimumab 1,000 mg in NaCl 0.9% 250 mL (BENLYSTA) 1,000 mg, INTRAVENOUS, at 250 mL/hr, Administer over 60 Minutes, ONCE, 1 dose, On Thu12/09/21 at 1130, 8 hour expiration time: --- Protect From Light --- Total Volume: 250 mL Protect From Light New Bag/Syringe/Ojlzwr2012/09/2021 12:56 PM EDT1,000 mg125 mL/hr methylPREDNISolone sod succinate(PF) 60 mg injection (SOLU-Medrol) 60 mg, INTRAVENOUS, ONCE, 1 dose, On Thu12/09/21 at 1130 Given12/09/2021 12:15 PM EDT60 mgMedication OrderMAR ActionAction DateDoseRate Site acetaminophen 1,000 mg tab(s) (TYLENOL) 1,000 mg, ORAL, ONCE, 1 dose, On Thu03/13/22 at 1200 Given03/13/2022 11:58 AM EDT1,000 mg belimumab 1,000 mg in NaCl 0.9% 250 mL (BENLYSTA) 1,000 mg, INTRAVENOUS, at 250 mL/hr, Administer over 60 Minutes, ONCE, 1 dose, On Theresa 03/13/22 at 1200, 8 hour expiration time: --- Protect From Light --- Total Volume: 250 mL Protect From Light New Bag/Syringe/Oalrrf2003/13/2022 12:32 PM EDT1,000 mg125 mL/hr methylPREDNISolone sod succinate(PF) 60 mg injection (SOLU-Medrol) 60 mg, INTRAVENOUS, ONCE, 1 dose, On Thu03/13/22 at 1200 Given03/13/2022 11:58 AM EDT60 mgMedication OrderMAR ActionAction DateDoseRate Site cilgavimab 300 mg intramuscular injection (EVUSHELD) [...] use under EUA. Yes, AMB MED ORDERS Given03/13/2022 12:58 PM [id number] mgButtocks, Left tixagevimab 300 mg intramuscular injection (EVUSHELD) [...] hour after injection(s) administered., AMB MED ORDERS Given03/13/2022 12:58 PM [id number] mgButtocks, RightMedication OrderMAR Action Action DateDoseRateSite acetaminophen 1,000 mg tab(s) (TYLENOL) 1,000 mg, ORAL, ONCE, 1 dose, On Thu06/12/22 at 1300 Given06/12/2022 12:50 PM EDT1,000 mg belimumab 1,000 mg in NaCl 0.9% 250 mL (BENLYSTA) 1,000 mg, INTRAVENOUS, at 250 mL/hr, Administer over 60 Minutes, ONCE, 1 dose, On Theresa 06/12/22 at 1300, 8 hour expiration time: --- Protect From Light --- Total Volume: 250 mL Protect From Light New Bag/Syringe/Uovlsz3606/12/2022 1:28 PM EDT1,000 mg125 mL/hr methylPREDNISolone sod succinate(PF) 60 mg injection (SOLU-Medrol) 60 mg, INTRAVENOUS, ONCE, 1 dose, On Theresa 06/12/22 at 1300 Given06/12/2022 1:00 PM EDT60 mgMedication OrderMAR ActionAction DateDoseRate Site acetaminophen 1,000 mg tab(s) (TYLENOL) 1,000 mg, ORAL, ONCE, 1 dose, On Thu09/15/22 at 1030 Given09/15/2022 10:20 AM EST1,000 mg belimumab 1,000 mg in NaCl 0.9% 250 mL (BENLYSTA) 1,000 mg, INTRAVENOUS, at 125 mL/hr, Administer over 120 Minutes, ONCE, 1 dose, On Thu09/15/22 at 1030, EXP: 09/15/22 1600 --- Protect From Light --- Total Volume: 250 mL Protect From Light New Bag/Syringe/Kukime8909/15/2022 10:55 AM EST1,000 mg125 mL/hr methylPREDNISolone sod succinate(PF) 60 mg injection (SOLU-Medrol) 60 mg, INTRAVENOUS, ONCE, 1 dose, On 1/30/23 at 1030 Given09/15/2022 10:25 AM EST60 mgMedication OrderMAR ActionAction DateDoseRate Site acetaminophen 1,000 mg tab(s) (TYLENOL) 1,000 mg, ORAL, ONCE, 1 dose, On Thu12/15/22 at 1000 Given12/15/2022 10:12 AM EDT1,000 mg belimumab 1,000 mg in NaCl 0.9% 250 mL (BENLYSTA) 1,000 mg, INTRAVENOUS, at 125 mL/hr, Administer over 120 Minutes, ONCE, 1 dose, On Thu12/15/22 at 1000, EXP: 12/15/22 1600 --- Protect From Light --- Total Volume: 250 mL Protect From Light New Bag/Syringe/Gbaerv7212/15/2022 10:44 AM EDT1,000 mg125 mL/hr methylPREDNISolone sod succinate(PF) 60 mg injection (SOLU-Medrol) 60 mg, INTRAVENOUS, ONCE, 1 dose, On Thu12/15/22 at 1000 Given12/15/2022 10:19 AM EDT60 mgMedication OrderMAR ActionAction DateDoseRate Site acetaminophen 1,000 mg tab(s) (TYLENOL) 1,000 mg, ORAL, ONCE, 1 dose, On Thu03/19/23 at 1000 Given03/19/2023 10:14 AM EDT1,000 mg belimumab 1,000 mg in NaCl 0.9% 250 mL (BENLYSTA) 1,000 mg, INTRAVENOUS, at 125 mL/hr, Administer over 120 Minutes, ONCE, 1 dose, On Thu03/19/23 at 1000, 8 hour expiration time: 1600 03/19/23 --- Protect From Light --- Total Volume: 250 mL Protect FromLight New Bag/Syringe/Wfdrnv7303/19/2023 10:37 AM EDT1,000 mg125 mL/hr methylPREDNISolone sod succinate(PF) 60 mg injection (SOLU-Medrol) 60 mg, INTRAVENOUS, ONCE, 1 dose, On Thu03/19/23 at 1000 Given03/19/2023 10:20 AM EDT60 mgMedication OrderMAR ActionAction DateDoseRate Site benzocaine 20% 1 [place] (TOPEX) 1 [place], TOPICAL, DIRECTED, Starting on Thu09/12/21 at 0800, Until Thu09/12/21 at 1159, DOSING DIRECTED BY PHYSICIAN FOR PROCEDURAL SEDATION ONLY - Pharmaceutical Waste: Aerosol -, Intraprocedure Given09/12/2021 7:43 AM EST1 [place] NaCl 0.9% iv infusion 30 mL/hr, INTRAVENOUS, CONTINUOUS, Starting on Theresa 09/12/21 at 0730, Until Theresa 09/12/21 at 0702, Preprocedure New Bag/Syringe/Xqqiyl9609/12/2021 7:20 AM EST30 mL/hr30 mL/hrMedication OrderMAR ActionAction DateDoseRateSite NaCl 0.9% iv infusion 30 mL/hr, INTRAVENOUS, CONTINUOUS, Starting on Theresa 04/02/23 at 0730, Until Theresa 04/02/23 at 0900, Preprocedure New Bag/Syringe/Vzsimv2404/02/2023 7:16 AM EDT30 mL/hr30 mL/hrMedication OrderMAR ActionAction DateDoseRateSite acetaminophen 1,000 mg tab(s) (TYLENOL) 1,000 mg, ORAL, ONCE, 1 dose, On Thu07/01/23 at 0900 Given07/01/2023 9:11 AM EST1,000 mg belimumab 1,000 mg in NaCl 0.9% 250 mL (BENLYSTA) 1,000 mg, INTRAVENOUS, at 125 mL/hr, Administer over 120 Minutes, ONCE, 1 dose, On Thu07/01/23 at 0900, 8 hour expiration time: 1600 07/01/23 room temp --- Protect From Light --- Total Volume: 250 mL Protect From Light New Bag/Syringe/Rawwij0507/01/2023 9:42 AM EST1,000 mg125 mL/hr methylPREDNISolone sod succinate(PF) 60 mg injection (SOLU-Medrol) 60 mg, INTRAVENOUS, ONCE, 1 dose, On Thu07/01/23 at 0900 Given07/01/2023 9:16 AM EST60 mg Chief Complaint and Reason for Visit Chief Complaint jaw pain Reason for Visit Acute alteration in mental status Acute UTI Headache Chief Complaint jaw pain Reason for Visit Acute alteration in mental status Acute UTI Generalized weakness Headache Lupus Obesity MONI (obstructive sleep apnea) HLD (hyperlipidemia) HTN (hypertension) Chief Complaint jaw pain Diarrhea x 3 daysReason for VisitAcute alteration in mental status Acute UTI Generalized [...] September 19, 2024 7:34am Reason for Referral SpecialtyDiagnoses / ProceduresReferred By ContactReferred To Contact Diagnoses High risk medication use Systemic lupus erythematosus, unspecified SLE type, unspecified organ involvement status (HCC) Evelin Abel MD [address] [id number] Referral IDStatusB[facility]Russellville [facility] DateExpiration DateVisits RequestedVisits [id number] / ProceduresReferred By Contact Referred To [facility] IMAGING Diagnoses Hypertrophic obstructive cardiomyopathy (HCC) Procedures MRI CARDIAC VELOCITY FLOW MAP CARDIAC MRI FOR VELOCITY FLOW MAPPING aMnn Ramos MD [address] [place] [address] Mr Imaging Referral IDStatusReasonChestnutridge DateExpiration DateVisits RequestedVisits [id number] Review Auto-Generated Referral /[id number] / ProceduresReferred By ContactReferred To ContactMR IMAGING Diagnoses Hypertrophic obstructive cardiomyopathy (HCC) Procedures MRI CARDIAC MORPH FUNC WO/W IVCON CARDIAC MRI W/WO CONTRAST & FURTHER SEQ Mann Ramos MD [address] [place] [address] Mr Imaging Referral IDStatusReChestnutridge DateExpiration DateVisits RequestedVisits [id number] Review Auto-Generated Referral [id number] / ProceduresReferred By ContactReferred To [facility] Diagnoses Hypertrophic obstructive cardiomyopathy (HCC) Procedures ECHO ECHO TTHRC R-T 2D W/WOM-MODE COMPL SPEC&COLR D Mann Ramos MD [address] [place] [address] [facility] [place] [address] Referral IDStatusReRussellville Hospital DateExpiration DateVisits RequestedVisits [id number] Review Auto-Generated Referral [id number] / ProceduresReferred By ContactReferred To [facility] Diagnoses Hypertrophic obstructive cardiomyopathy (HCC) Procedures ECG COMPLETE ECG ROUTINE ECG W/LEAST 12 LDS W/I&R Mann Ramos MD [address] [place] [address] [place] [address] Referral [facility]StatusSent[facility] DateExpiration DateVisits RequestedVisits [id number] Review Auto-Generated Referral [id number] / ProceduresReferred By ContactReferred To ContactEndocrinology Diagnoses Hypercalcemia Hyperparathyroid (HCC) Procedures CONSULT TO ENDOCRINOLOGY OFFICE/OUTPATIENT [facility] 60-74 MINUTES Obdulia Peña PA-C [address] [place] [address] Referral IDStatusReasonSttell city DateExpiration DateVisits RequestedVisits [id number] PCP Requested Referral [id number] / ProceduresReferred By ContactReferred To Contact Diagnoses Hypercalcemia Hyperparathyroid (HCC) Procedures CONSULT TO ENDOCRINE SURGERY OFFICE/OUTPATIENT [facility] 60-74 MINUTES Lemuel Bejarano V, MD [address] [place] [address] Referral IDStatusReasonStart DateExpiration DateVisits RequestedVisits [id number] PCP Requested Referral [id number] / ProceduresReferred By ContactReferred To ContactNephrology Diagnoses Chronic kidney disease, unspecified CKD stage Systemic lupus erythematosus, unspecified SLE type, unspecified organ involvement status (HCC) Procedures CONSULT TO NEPHROLOGY OFFICE/OUTPATIENT [facility] 60-74 MINUTES Nadege Murphy DO [address] [place] [address] Referral IDStatusReasonStart DateExpiration DateVisits RequestedVisits [id number] PCP Requested Referral /[id number] / ProceduresReferred By ContactReferred To ContactCardiology Diagnoses Paroxysmal atrial fibrillation (CMS/HCC) Procedures Cardioversion External Yuriy Conway MD [address] [facility], [address] [address] Referral IDStatusReasonStart DateExpiration DateVisits RequestedVisits [id number] [id number] / ProceduresReferred By ContactReferred To Contact Diagnoses Paroxysmal atrial fibrillation (CMS/HCC) Procedures ECG 12 Lead Yuriy Cnoway MD [address] [facility], [address] [address] Referral IDStatusReasonStart DateExpiration DateVisits RequestedVisits [id number]/1/20241/31/892677ZxlsobmxwWkvtsggkh / Procedures Referred By ContactReferred To ContactCardiology Diagnoses Paroxysmal atrial fibrillation (CMS/HCC) Procedures Follow Up In Cardiology Yuriy Conway MD [address] [facility] 2, [address] [place] [address] Yuriy Conway MD [address] [facility] 2, [address] [place] [address] Referral IDStatusReasonStart DateExpiration DateVisits RequestedVisits [id number]/1/20241/31/452532UplpscmfxRlrgeieyo / Procedures Referred By ContactReferred To ContactMR IMAGING Diagnoses Pancreatic cyst Procedures MRI 3D POST PROCESSING 3D RENDERING W/INTERP&POSTPROC DIFF WORK STATION Rima Mcallister APRN.GUIDE EXCURSION [address] [place] [address] Mr Imaging [address] [address] Referral IDStatusReasonStart DateExpiration DateVisits RequestedVisits [id number] Review Auto-Generated Referral [id number] / ProceduresReferred By ContactReferred To ContactMR IMAGING Diagnoses Pancreatic cyst Procedures MRI PANC/JEANIE WO/W IVCON MRI ABDOMEN W/O & W/CONTRAST MATERIAL Rima Mcallister APRN.GUIDE EXCURSION [address] [phone] Mr Imaging [place] [address] Referral IDStatusReasonStart DateExpiration DateVisits RequestedVisits [id number] Review Auto-Generated Referral 1Referral IDStatusReasonStart DateExpiration DateVisits RequestedVisits [id number] Auto-Generated Referral 1Referral IDStatusReasonStart DateExpiration DateVisits RequestedVisits [id number]/14/20243/14/612078Oghjouxlw Diagnoses / ProceduresReferred By ContactReferred To ContactCardiology Diagnoses Paroxysmal atrial fibrillation (CMS/HCC) Yuriy Conway MD [address] [facility] 2, [address] [place] [phone] [place] [id number] [place] [address] Referral IDStatusReasonStart DateExpiration DateVisits RequestedVisits [id number] Specialty Services Required 1Referral IDStatusReasonStart DateExpiration DateVisits RequestedVisits [id number]/14/20243/14/145617Lexroqms IDStatus ReasonStart DateExpiration DateVisits RequestedVisits [id number] [id number] / ProceduresReferred By Contact Referred To Contact Diagnoses Paroxysmal atrial fibrillation (CMS/HCC) Atypical atrial flutter (CMS/HCC) Procedures ECG 12 lead (Clinic Performed) Juan Cihno MD [id number] [place] [address] Referral IDStatusReasonStart DateExpiration DateVisits RequestedVisits [id number]/1/20244/719935LkqesqhmmYjgiaktnj / Procedures Referred By ContactReferred To Contact Diagnoses Paroxysmal atrial fibrillation (Multi) Procedures ECG 12 lead (Clinic Performed) Christian Kaur, ANTONIO-JOHNATHAN [id number] [place] [address] Referral IDStatusReasonStart DateExpiration DateVisits RequestedVisits [id number]/1/20247/1/836093ImcsgniypIvfogoihp / Procedures Referred By ContactReferred To ContactRadiology Diagnoses Paroxysmal atrial fibrillation (Multi) Epistaxis Anemia, unspecified type Preop testing Procedures [place] [address] [place] [address] Referral IDStatusReasonSttell city DateExpiration DateVisits RequestedVisits [id number] Perform Procedure eferral IDStatusReasonChestnut[place] DateExpiration DateVisits RequestedVisits [id number]/30/20249/552190Gitiqhzyf Diagnoses / ProceduresReferred By ContactReferred To ContactRehabilitation Diagnoses Localized osteoarthritis of left knee Wojciech Treviño, DO [address] [facility], [place] [address] Referral IDStatusReasonSttell city DateExpiration DateVisits RequestedVisits [id number] Review Specialty Services Required Chief Complaint JESUS WOLF is being seen for an annual follow-up of.* JESUS OWLF is being seen for an annual follow-up of. * Patient is in the office after more than 2 years hiatus [facility]. [facility] in need for cardiac clearance prior to surgery. The patient has done well in thelast couple of years but was not very happy with the care she was receiving at the [facility]. She had ablation for atrial fibrillation couple years back at [facility] with Dr. Chino with no recurrences. She is not on antiarrhythmic therapy but has been on anticoagulation with Eliquis. She has no indication previous coronary heart disease but never had a stress test or cardiac catheterization. Her last echocardiogram from September 2021 at the [facility] revealed mildly dilated ascending aorta at 4.6 [...] radiofrequency ablation with pulmonary vein isolation at [facility] in 2020. She will continue on Eliquis [...] 8. Systemic Lupus managed by rheumatology at [facility] on multiple medications and stable * 9. [...] years hiatus [facility]. She is in need for cardiac clearance prior to surgery. The patient has done well in thelast couple of years but was not very happy with the care she was receiving at the [facility]. She had ablation for atrial fibrillation couple years back at [facility] with Dr. Chino with no recurrences. She is not on antiarrhythmic therapy but has been on anticoagulation with Eliquis. She has no indication previous coronary heart disease but never had a stress test or cardiac catheterization. Her last echocardiogram from September 2021 at the [facility] revealed mildly dilated ascending aorta at 4.6 [...] radiofrequency ablation with pulmonary vein isolation at [facility] in 2020. She will continue on Eliquis [...] 8. Systemic Lupus managed by rheumatology at [facility] on multiple medications and stable * 9. [...] years hiatus [facility]. She is in need for cardiac clearance prior to surgery. The patient has done well in thelast couple of years but was not very happy with the care she was receiving at the [facility]. She had ablation for atrial fibrillation couple years back at [facility] with Dr. Chino with no recurrences. She is not on antiarrhythmic therapy but has been on anticoagulation with Eliquis. She has no indication previous coronary heart disease but never had a stress test or cardiac catheterization. Her last echocardiogram from September 2021 at the [facility] revealed mildly dilated ascending aorta at 4.6 [...] radiofrequency ablation with pulmonary vein isolation at [facility] in 2019. She will continue on Eliquis [...] 8. Systemic Lupus managed by rheumatology at [facility] on multiple medications and stable * 9. [...] medication was advised. * Yuriy Conway MD, [facility] Health Concerns InfectionOnset DateLast IndicatedResolved TimeC. Additional Source Comments INFORMATION SOURCE (unrecogn ized section and content) DATE CREATED AUTHOR 10/21/2018 [facility] DATE CREATED AUTHOR AUTHOR'S ORGANIZ ATION 04/30/2021 [facility] DATE CREATED AUTHOR AUTHOR'S ORGANIZ ATION 09/10/2021 [employer] DATE CREATED AUTHOR AUTHOR'S ORGANIZ ATION 08/08/2022 [employer] DATE CREATED AUTHOR AUTHOR'S ORGANIZ ATION 09/23/2022 [facility] DATE CREATED AUTHOR AUTHOR'S ORGANIZ ATION 12/18/2022 [facility] DATE CREATED AUTHOR AUTHOR'S ORGANIZ ATION 05/10/2024 [facility] DATE CREATED AUTHOR AUTHOR'S ORGANIZ ATION 05/18/2024 [facility] DATE CREATED AUTHOR AUTHOR'S ORGANIZ ATION 09/03/[address] [facility] DATE CREATED AUTHOR AUTHOR'S ORGANIZ ATION 09/21/2024 [facility] DATE CREATED AUTHOR AUTHOR'S ORGANIZ ATION 09/29/2024 [facility] DATE CREATED AUTHOR AUTHOR'S ORGANIZ ATION 12/30/2024 [facility] DATE CREATED AUTHOR AUTHOR'S ORGANIZ ATION 02/04/2025 [facility] DATE CREATED AUTHOR AUTHOR'S ORGANIZ ATION 03/06/2025 [facility] DATE CREATED AUTHOR AUTHOR'S ORGANIZ ATION 04/06/2025 [facility] DATE CREATED AUTHOR AUTHOR'S ORGANIZ ATION 04/24/2025 [facility] DATE CREATED AUTHOR AUTHOR'S ORGANIZ ATION 06/27/2025 [facility] Source Comments (unrecognize d section and content) In the event this informatio n is protected by the Federal Confidentiality of Alcohol and Drug Abuse Patient Records regulations: The Federal rules restrict any use of the information to criminally investigate or prosecute any alcohol or drug abuse patient.[facility] the event this information is protected by the Federal Confidentiality of Alcohol and Drug Abuse Patient Records regulations: The Federal rules restrict any use of the information to criminally investigate or prosecute any alcohol or drug abuse patient.[facility]In the event this information is protected by the Federal Confidentiality of Alcohol and Drug Abuse Patient Records regulations: The Federal rules restrict any use of the information to criminally investigate or prosecute any alcohol or drug abuse patient.[facility]In the event this information is protected by the Federal Confidentiality of Alcohol and Drug Abuse Patient Records regulations: The Federal rules restrict any use of the information to criminally investigate or prosecute any alcohol or drug abuse patient.[facility]In the event this information is protected by the Federal Confidentiality of Alcohol and Drug Abuse Patient Records regulations: The Federal rules restrict any use of the information to criminally investigate or prosecute any alcohol or drug abuse patient.[facility] HospitalIn the event this information is protected by the Federal Confidentiality of Alcohol and Drug Abuse Patient Records regulations: The Federal rules restrict any use of the information to criminally investigate or prosecute any alcohol or drug abuse patient.[facility] HospitalIn the event this information is protected by the Federal Confidentiality of Alcohol and Drug Abuse Patient Records regulations: The Federal rules restrict any use of the information to criminally investigate or prosecute any alcohol or drug abuse patient.[facility] HospitalIn the event this information is protected by the Federal Confidentiality of Alcohol and Drug Abuse Patient Records regulations: The Federal rules restrict any use of the information to criminally investigate or prosecute any alcohol or drug abuse patient.[facility] HospitalIn the event this information is protected by the Federal Confidentiality of Alcohol and Drug Abuse Patient Records regulations: The Federal rules restrict any use of the information to criminally investigate or prosecute any alcohol or drug abuse patient.[facility] HospitalIn the event this information is protected by the Federal Confidentiality of Alcohol and Drug Abuse Patient Records regulations: The Federal rules restrict any use of the information to criminally investigate or prosecute any alcohol or drug abuse patient.[facility] HospitalIn the event this information is protected by the Federal Confidentiality of Alcohol and Drug Abuse Patient Records regulations: The Federal rules restrict any use of the information to criminally investigate or prosecute any alcohol or drug abuse patient.[facility] HospitalIn the event this information is protected by the Federal Confidentiality of Alcohol and Drug Abuse Patient Records regulations: The Federal rules restrict any use of the information to criminally investigate or prosecute any alcohol or drug abuse patient.[facility] HospitalIn the event this information is protected by the Federal Confidentiality of Alcohol and Drug Abuse Patient Records regulations: The Federal rules restrict any use of the information to criminally investigate or prosecute any alcohol or drug abuse patient.[facility] HospitalIn the event this information is protected by the Federal Confidentiality of Alcohol and Drug Abuse Patient Records regulations: The Federal rules restrict any use of the information to criminally investigate or prosecute any alcohol or drug abuse patient.[facility] HospitalIn the event this information is protected by the Federal Confidentiality of Alcohol and Drug Abuse Patient Records regulations: The Federal rules restrict any use of the information to criminally investigate or prosecute any alcohol or drug abuse patient.[facility] the event this information is protected by the Federal Confidentiality of Alcohol and Drug Abuse Patient Records regulations: The Federal rules restrict any use of the information to criminally investigate or prosecute any alcohol or drug abuse patient.[facility] HospitalIn the event this information is protected by the Federal Confidentiality of Alcohol and Drug Abuse Patient Records regulations: The Federal rules restrict any use of the information to criminally investigate or prosecute any alcohol or drug abuse patient.[facility] HospitalIn the event this information is protected [...] or prosecute any alcohol or drug abuse patient.[facility] HospitalIn the event this information is protected by the Federal Confidentiality of Alcohol and Drug Abuse Patient Records regulations: The Federal rules restrict any use of the information to criminally investigate or prosecute any alcohol or drug abuse patient.[facility] HospitalIn the event this information is protected by the Federal Confidentiality of Alcohol and Drug Abuse Patient Records regulations: The Federal rules restrict any use of the information to criminally investigate or prosecute any alcohol or drug abuse patient.[facility] HospitalIn the event this information is protected by the Federal Confidentiality of Alcohol and Drug Abuse Patient Records regulations: The Federal rules restrict any use of the information to criminally investigate or prosecute any alcohol or drug abuse patient.[facility] HospitalIn the event this information is protected by the Federal Confidentiality of Alcohol and Drug Abuse Patient Records regulations: The Federal rules restrict any use of the information to criminally investigate or prosecute any alcohol or drug abuse patient.[facility] HospitalIn the event this information is protected by the Federal Confidentiality of Alcohol and Drug Abuse Patient Records regulations: The Federal rules restrict any use of the information to criminally investigate or prosecute any alcohol or drug abuse patient.[facility] HospitalIn the event this information is protected by the Federal Confidentiality of Alcohol and Drug Abuse Patient Records regulations: The Federal rules restrict any use of the information to criminally investigate or prosecute any alcohol or drug abuse patient.[facility] HospitalIn the event this information is protected by the Federal Confidentiality of Alcohol and Drug Abuse Patient Records regulations: The Federal rules restrict any use of the information to criminally investigate or prosecute any alcohol or drug abuse patient.[facility] HospitalIn the event this information is protected by the Federal Confidentiality of Alcohol and Drug Abuse Patient Records regulations: The Federal rules restrict any use of the information to criminally investigate or prosecute any alcohol or drug abuse patient.[facility] HospitalIn the event this information is protected by the Federal Confidentiality of Alcohol and Drug Abuse Patient Records regulations: The Federal rules restrict any use of the information to criminally investigate or prosecute any alcohol or drug abuse patient.[facility]In the event this information is protected by the Federal Confidentiality of Alcohol and Drug Abuse Patient Records regulations: The Federal rules restrict any use of the information to criminally investigate or prosecute any alcohol or drug abuse patient.[facility]In the event this information is protected by the Federal Confidentiality of Alcohol and Drug Abuse Patient Records regulations: The Federal rules restrict any use of the information to criminally investigate or prosecute any alcohol or drug abuse patient.[facility]In the event this information is protected by the Federal Confidentiality of Alcohol and Drug Abuse Patient Records regulations: The Federal rules restrict any use of the information to criminally investigate or prosecute any alcohol or drug abuse patient.[facility]In the event this information is protected by the Federal Confidentiality of Alcohol and Drug Abuse Patient Records regulations: The Federal rules restrict any use of the information to criminally investigate or prosecute any alcohol or drug abuse patient.[facility]In the event this information is protected by the Federal Confidentiality of Alcohol and Drug Abuse Patient Records regulations: The Federal rules restrict any use of the information to criminally investigate or prosecute any alcohol or drug abuse patient.[facility]In the event this information is protected by the Federal Confidentiality of Alcohol and Drug Abuse Patient Records regulations: The Federal rules restrict any use of the information to criminally investigate or prosecute any alcohol or drug abuse patient.[facility]In the event this information is protected by the Federal Confidentiality of Alcohol and Drug Abuse Patient Records regulations: The Federal rules restrict any use of the information to criminally investigate or prosecute any alcohol or drug abuse patient.[facility]In the event this information is protected by the Federal Confidentiality of Alcohol and Drug Abuse Patient Records regulations: The Federal rules restrict any use of the information to criminally investigate or prosecute any alcohol or drug abuse patient.[facility]In the event this information is protected by the Federal Confidentiality of Alcohol and Drug Abuse Patient Records regulations: The Federal rules restrict any use of the information to criminally investigate or prosecute any alcohol or drug abuse patient.[facility]In the event this information is protected by the Federal Confidentiality of Alcohol and Drug Abuse Patient Records regulations: The Federal rules restrict any use of the information to criminally investigate or prosecute any alcohol or drug abuse patient.[facility]In the event this information is protected by the Federal Confidentiality of Alcohol and Drug Abuse Patient Records regulations: The Federal rules restrict any use of the information to criminally investigate or prosecute any alcohol or drug abuse patient.[facility]In the event this information is protected by the Federal Confidentiality of Alcohol and Drug Abuse Patient Records regulations: The Federal rules restrict any use of the information to criminally investigate or prosecute any alcohol or drug abuse patient.[facility]In the event this information is protected by the Federal Confidentiality of Alcohol and Drug Abuse Patient Records regulations: The Federal rules restrict any use of the information to criminally investigate or prosecute any alcohol or drug abuse patient.[facility]In the event this information is protected by the Federal Confidentiality of Alcohol and Drug Abuse Patient Records regulations: The Federal rules restrict any use of the information to criminally investigate or prosecute any alcohol or drug abuse patient.[facility]In the event this information is protected by the Federal Confidentiality of Alcohol and Drug Abuse Patient Records regulations: The Federal rules restrict any use of the information to criminally investigate or prosecute any alcohol or drug abuse patient.[facility]In the event this information is protected by the Federal Confidentiality of Alcohol and Drug Abuse Patient Records regulations: The Federal rules restrict any use of the information to criminally investigate or prosecute any alcohol or drug abuse patient.[facility]In the event this information is protected by the Federal Confidentiality of Alcohol and Drug Abuse Patient Records regulations: The Federal rules restrict any use of the information to criminally investigate or prosecute any alcohol or drug abuse patient.[facility]In the event this information is protected by the Federal Confidentiality of Alcohol and Drug Abuse Patient Records regulations: The Federal rules restrict any use of the information to criminally investigate or prosecute any alcohol or drug abuse patient.[facility]In the event this information is protected by the Federal Confidentiality of Alcohol and Drug Abuse Patient Records regulations: The Federal rules restrict any use of the information to criminally investigate or prosecute any alcohol or drug abuse patient.[facility]In the event this information is protected by the Federal Confidentiality of Alcohol and Drug Abuse Patient Records regulations: The Federal rules restrict any use of the information to criminally investigate or prosecute any alcohol or drug abuse patient.[facility]In the event this information is protected by the Federal Confidentiality of Alcohol and Drug Abuse Patient Records regulations: The Federal rules restrict any use of the information to criminally investigate or prosecute any alcohol or drug abuse patient.[facility]In the event this information is protected by the Federal Confidentiality of Alcohol and Drug Abuse Patient Records regulations: The Federal rules restrict any use of the information to criminally investigate or prosecute any alcohol or drug abuse patient.[facility]In the event this information is protected by the Federal Confidentiality of Alcohol and Drug Abuse Patient Records regulations: The Federal rules restrict any use of the information to criminally investigate or prosecute any alcohol or drug abuse patient.[facility]In the event this information is protected by the Federal Confidentiality of Alcohol and Drug Abuse Patient Records regulations: The Federal rules restrict any use of the information to criminally investigate or prosecute any alcohol or drug abuse patient.[facility]In the event this information is protected by the Federal Confidentiality of Alcohol and Drug Abuse Patient Records regulations: The Federal rules restrict any use of the information to criminally investigate or prosecute any alcohol or drug abuse patient.[facility] HospitalIn the event this information is protected by the Federal Confidentiality of Alcohol and Drug Abuse Patient Records regulations: The Federal rules restrict any use of the information to criminally investigate or prosecute any alcohol or drug abuse patient.[facility] HospitalIn the event this information is protected by the Federal Confidentiality of Alcohol and Drug Abuse Patient Records regulations: The Federal rules restrict any use of the information to criminally investigate or prosecute any alcohol or drug abuse patient.[facility]In the event this information is protected by the Federal Confidentiality of Alcohol and Drug Abuse Patient Records regulations: The Federal rules restrict any use of the information to criminally investigate or prosecute any alcohol or drug abuse patient.[facility]In the event this information is protected by the Federal Confidentiality of Alcohol and Drug Abuse Patient Records regulations: The Federal rules restrict any use of the information to criminally investigate or prosecute any alcohol or drug abuse patient.[facility]In the event this information is protected by the Federal Confidentiality of Alcohol and Drug Abuse Patient Records regulations: The Federal rules restrict any use of the information to criminally investigate or prosecute any alcohol or drug abuse patient.[facility]In the event this information is protected by the Federal Confidentiality of Alcohol and Drug Abuse Patient Records regulations: The Federal rules restrict any use of the information to criminally investigate or prosecute any alcohol or drug abuse patient.[facility]In the event this information is protected by the Federal Confidentiality of Alcohol and Drug Abuse Patient Records regulations: The Federal rules restrict any use of the information to criminally investigate or prosecute any alcohol or drug abuse patient.[facility]In the event this information is protected by the Federal Confidentiality of Alcohol and Drug Abuse Patient Records regulations: The Federal rules restrict any use of the information to criminally investigate or prosecute any alcohol or drug abuse patient.[facility]In the event this information is protected by the Federal Confidentiality of Alcohol and Drug Abuse Patient Records regulations: The Federal rules restrict any use of the information to criminally investigate or prosecute any alcohol or drug abuse patient.[facility]In the event this information is protected by the Federal Confidentiality of Alcohol and Drug Abuse Patient Records regulations: The Federal rules restrict any use of the information to criminally investigate or prosecute any alcohol or drug abuse patient.[facility]In the event this information is protected by the Federal Confidentiality of Alcohol and Drug Abuse Patient Records regulations: The Federal rules restrict any use of the information to criminally investigate or prosecute any alcohol or drug abuse patient.[facility]In the event this information is protected by the Federal Confidentiality of Alcohol and Drug Abuse Patient Records regulations: The Federal rules restrict any use of the information to criminally investigate or prosecute any alcohol or drug abuse patient.[facility] the event this information is protected by the Federal Confidentiality of Alcohol and Drug Abuse Patient Records regulations: The Federal rules restrict any use of the information to criminally investigate or prosecute any alcohol or drug abuse patient.[facility]In the event this information is protected by the Federal Confidentiality of Alcohol and Drug Abuse Patient Records regulations: The Federal rules restrict any use of the information to criminally investigate or prosecute any alcohol or drug abuse patient.[facility] HospitalIn the event this information is protected [...] or prosecute any alcohol or drug abuse patient.[facility]In the event this information is protected by the Federal Confidentiality of Alcohol and Drug Abuse Patient Records regulations: The Federal rules restrict any use of the information to criminally investigate or prosecute any alcohol or drug abuse patient.[facility]In the event this information is protected by the Federal Confidentiality of Alcohol and Drug Abuse Patient Records regulations: The Federal rules restrict any use of the information to criminally investigate or prosecute any alcohol or drug abuse patient.[facility]In the event this information is protected by the Federal Confidentiality of Alcohol and Drug Abuse Patient Records regulations: The Federal rules restrict any use of the information to criminally investigate or prosecute any alcohol or drug abuse patient.[facility]In the event this information is protected by the Federal Confidentiality of Alcohol and Drug Abuse Patient Records regulations: The Federal rules restrict any use of the information to criminally investigate or prosecute any alcohol or drug abuse patient.[facility]In the event this information is protected by the Federal Confidentiality of Alcohol and Drug Abuse Patient Records regulations: The Federal rules restrict any use of the information to criminally investigate or prosecute any alcohol or drug abuse patient.[facility]In the event this information is protected by the Federal Confidentiality of Alcohol and Drug Abuse Patient Records regulations: The Federal rules restrict any use of the information to criminally investigate or prosecute any alcohol or drug abuse patient.[facility]In the event this information is protected by the Federal Confidentiality of Alcohol and Drug Abuse Patient Records regulations: The Federal rules restrict any use of the information to criminally investigate or prosecute any alcohol or drug abuse patient.[facility]In the event this information is protected by the Federal Confidentiality of Alcohol and Drug Abuse Patient Records regulations: The Federal rules restrict any use of the information to criminally investigate or prosecute any alcohol or drug abuse patient.[facility]In the event this information is protected by the Federal Confidentiality of Alcohol and Drug Abuse Patient Records regulations: The Federal rules restrict any use of the information to criminally investigate or prosecute any alcohol or drug abuse patient.[facility]In the event this information is protected by the Federal Confidentiality of Alcohol and Drug Abuse Patient Records regulations: The Federal rules restrict any use of the information to criminally investigate or prosecute any alcohol or drug abuse patient.[facility]In the event this information is protected by the Federal Confidentiality of Alcohol and Drug Abuse Patient Records regulations: The Federal rules restrict any use of the information to criminally investigate or prosecute any alcohol or drug abuse patient.[facility]In the event this information is protected by the Federal Confidentiality of Alcohol and Drug Abuse Patient Records regulations: The Federal rules restrict any use of the information to criminally investigate or prosecute any alcohol or drug abuse patient.[facility]In the event this information is protected by the Federal Confidentiality of Alcohol and Drug Abuse Patient Records regulations: The Federal rules restrict any use of the information to criminally investigate or prosecute any alcohol or drug abuse patient.[facility]In the event this information is protected by the Federal Confidentiality of Alcohol and Drug Abuse Patient Records regulations: The Federal rules restrict any use of the information to criminally investigate or prosecute any alcohol or drug abuse patient.[facility]In the event this information is protected by the Federal Confidentiality of Alcohol and Drug Abuse Patient Records regulations: The Federal rules restrict any use of the information to criminally investigate or prosecute any alcohol or drug abuse patient.[facility]In the event this information is protected by the Federal Confidentiality of Alcohol and Drug Abuse Patient Records regulations: The Federal rules restrict any use of the information to criminally investigate or prosecute any alcohol or drug abuse patient.[facility]In the event this information is protected by the Federal Confidentiality of Alcohol and Drug Abuse Patient Records regulations: The Federal rules restrict any use of the information to criminally investigate or prosecute any alcohol or drug abuse patient.[facility]In the event this information is protected by the Federal Confidentiality of Alcohol and Drug Abuse Patient Records regulations: The Federal rules restrict any use of the information to criminally investigate or prosecute any alcohol or drug abuse patient.[facility]In the event this information is protected by the Federal Confidentiality of Alcohol and Drug Abuse Patient Records regulations: The Federal rules restrict any use of the information to criminally investigate or prosecute any alcohol or drug abuse patient.[facility]In the event this information is protected by the Federal Confidentiality of Alcohol and Drug Abuse Patient Records regulations: The Federal rules restrict any use of the information to criminally investigate or prosecute any alcohol or drug abuse patient.[facility]In the event this information is protected by the Federal Confidentiality of Alcohol and Drug Abuse Patient Records regulations: The Federal rules restrict any use of the information to criminally investigate or prosecute any alcohol or drug abuse patient.[facility]In the event this information is protected by the Federal Confidentiality of Alcohol and Drug Abuse Patient Records regulations: The Federal rules restrict any use of the information to criminally investigate or prosecute any alcohol or drug abuse patient.[facility]In the event this information is protected by the Federal Confidentiality of Alcohol and Drug Abuse Patient Records regulations: The Federal rules restrict any use of the information to criminally investigate or prosecute any alcohol or drug abuse patient.[facility]In the event this information is protected by the Federal Confidentiality of Alcohol and Drug Abuse Patient Records regulations: The Federal rules restrict any use of the information to criminally investigate or prosecute any alcohol or drug abuse patient.[facility]In the event this information is protected by the Federal Confidentiality of Alcohol and Drug Abuse Patient Records regulations: The Federal rules restrict any use of the information to criminally investigate or prosecute any alcohol or drug abuse patient.[facility]In the event this information is protected by the Federal Confidentiality of Alcohol and Drug Abuse Patient Records regulations: The Federal rules restrict any use of the information to criminally investigate or prosecute any alcohol or drug abuse patient.[facility]In the event this information is protected by the Federal Confidentiality of Alcohol and Drug Abuse Patient Records regulations: The Federal rules restrict any use of the information to criminally investigate or prosecute any alcohol or drug abuse patient.[facility]In the event this information is protected by the Federal Confidentiality of Alcohol and Drug Abuse Patient Records regulations: The Federal rules restrict any use of the information to criminally investigate or prosecute any alcohol or drug abuse patient.[facility]In the event this information is protected by the Federal Confidentiality of Alcohol and Drug Abuse Patient Records regulations: The Federal rules restrict any use of the information to criminally investigate or prosecute any alcohol or drug abuse patient.[facility]In the event this information is protected by the Federal Confidentiality of Alcohol and Drug Abuse Patient Records regulations: The Federal rules restrict any use of the information to criminally investigate or prosecute any alcohol or drug abuse patient.[facility]In the event this information is protected by the Federal Confidentiality of Alcohol and Drug Abuse Patient Records regulations: The Federal rules restrict any use of the information to criminally investigate or prosecute any alcohol or drug abuse patient.[facility]In the event this information is protected by the Federal Confidentiality of Alcohol and Drug Abuse Patient Records regulations: The Federal rules restrict any use of the information to criminally investigate or prosecute any alcohol or drug abuse patient.[facility]In the event this information is protected by the Federal Confidentiality of Alcohol and Drug Abuse Patient Records regulations: The Federal rules restrict any use of the information to criminally investigate or prosecute any alcohol or drug abuse patient.[facility]In the event this information is protected by the Federal Confidentiality of Alcohol and Drug Abuse Patient Records regulations: The Federal rules restrict any use of the information to criminally investigate or prosecute any alcohol or drug abuse patient.[facility]In the event this information is protected by the Federal Confidentiality of Alcohol and Drug Abuse Patient Records regulations: The Federal rules restrict any use of the information to criminally investigate or prosecute any alcohol or drug abuse patient.[facility]In the event this information is protected by the Federal Confidentiality of Alcohol and Drug Abuse Patient Records regulations: The Federal rules restrict any use of the information to criminally investigate or prosecute any alcohol or drug abuse patient.[facility]In the event this information is protected by the Federal Confidentiality of Alcohol and Drug Abuse Patient Records regulations: The Federal rules restrict any use of the information to criminally investigate or prosecute any alcohol or drug abuse patient.[facility] [facility]In the event this information is protected by the Federal Confidentiality of Alcohol and Drug Abuse Patient Records regulations: The Federal rules restrict any use of the information to criminally investigate or prosecute any alcohol or drug abuse patient.[facility]In the event this information is protected by the Federal Confidentiality of Alcohol and Drug Abuse Patient Records regulations: The Federal rules restrict any use of the information to criminally investigate or prosecute any alcohol or drug abuse patient.[facility]In the event this information is protected by the Federal Confidentiality of Alcohol and Drug Abuse Patient Records regulations: The Federal rules restrict any use of the information to criminally investigate or prosecute any alcohol or drug abuse patient.[facility]In the event this information is protected by the Federal Confidentiality of Alcohol and Drug Abuse Patient Records regulations: The Federal rules restrict any use of the information to criminally investigate or prosecute any alcohol or drug abuse patient.[facility]In the event this information is protected by the Federal Confidentiality of Alcohol and Drug Abuse Patient Records regulations: The Federal rules restrict any use of the information to criminally investigate or prosecute any alcohol or drug abuse patient.[facility]In the event this information is protected by the Federal Confidentiality of Alcohol and Drug Abuse Patient Records regulations: The Federal rules restrict any use of the information to criminally investigate or prosecute any alcohol or drug abuse patient.[facility]In the event this information is protected by the Federal Confidentiality of Alcohol and Drug Abuse Patient Records regulations: The Federal rules restrict any use of the information to criminally investigate or prosecute any alcohol or drug abuse patient.[facility]In the event this information is protected by the Federal Confidentiality of Alcohol and Drug Abuse Patient Records regulations: The Federal rules restrict any use of the information to criminally investigate or prosecute any alcohol or drug abuse patient.[facility]In the event this information is protected by the Federal Confidentiality of Alcohol and Drug Abuse Patient Records regulations: The Federal rules restrict any use of the information to criminally investigate or prosecute any alcohol or drug abuse patient.[facility] the event this information is protected by the Federal Confidentiality of Alcohol and Drug Abuse Patient Records regulations: The Federal rules restrict any use of the information to criminally investigate or prosecute any alcohol or drug abuse patient.[facility]In the event this information is protected by the Federal Confidentiality of Alcohol and Drug Abuse Patient Records regulations: The Federal rules restrict any use of the information to criminally investigate or prosecute any alcohol or drug abuse patient.[facility]In the event this information is protected [...] or prosecute any alcohol or drug abuse patient.[facility]In the event this information is protected by the Federal Confidentiality of Alcohol and Drug Abuse Patient Records regulations: The Federal rules restrict any use of the information to criminally investigate or prosecute any alcohol or drug abuse patient.[facility]In the event this information is protected by the Federal Confidentiality of Alcohol and Drug Abuse Patient Records regulations: The Federal rules restrict any use of the information to criminally investigate or prosecute any alcohol or drug abuse patient.[facility]In the event this information is protected by the Federal Confidentiality of Alcohol and Drug Abuse Patient Records regulations: The Federal rules restrict any use of the information to criminally investigate or prosecute any alcohol or drug abuse patient.[facility]In the event this information is protected by the Federal Confidentiality of Alcohol and Drug Abuse Patient Records regulations: The Federal rules restrict any use of the information to criminally investigate or prosecute any alcohol or drug abuse patient.[facility]In the event this information is protected by the Federal Confidentiality of Alcohol and Drug Abuse Patient Records regulations: The Federal rules restrict any use of the information to criminally investigate or prosecute any alcohol or drug abuse patient.[facility]In the event this information is protected by the Federal Confidentiality of Alcohol and Drug Abuse Patient Records regulations: The Federal rules restrict any use of the information to criminally investigate or prosecute any alcohol or drug abuse patient.[facility]In the event this information is protected by the Federal Confidentiality of Alcohol and Drug Abuse Patient Records regulations: The Federal rules restrict any use of the information to criminally investigate or prosecute any alcohol or drug abuse patient.[facility]In the event this information is protected by the Federal Confidentiality of Alcohol and Drug Abuse Patient Records regulations: The Federal rules restrict any use of the information to criminally investigate or prosecute any alcohol or drug abuse patient.[facility]In the event this information is protected by the Federal Confidentiality of Alcohol and Drug Abuse Patient Records regulations: The Federal rules restrict any use of the information to criminally investigate or prosecute any alcohol or drug abuse patient.[facility]In the event this information is protected by the Federal Confidentiality of Alcohol and Drug Abuse Patient Records regulations: The Federal rules restrict any use of the information to criminally investigate or prosecute any alcohol or drug abuse patient.[facility]In the event this information is protected by the Federal Confidentiality of Alcohol and Drug Abuse Patient Records regulations: The Federal rules restrict any use of the information to criminally investigate or prosecute any alcohol or drug abuse patient.[facility]In the event this information is protected by the Federal Confidentiality of Alcohol and Drug Abuse Patient Records regulations: The Federal rules restrict any use of the information to criminally investigate or prosecute any alcohol or drug abuse patient.[facility]In the event this information is protected by the Federal Confidentiality of Alcohol and Drug Abuse Patient Records regulations: The Federal rules restrict any use of the information to criminally investigate or prosecute any alcohol or drug abuse patient.[facility]In the event this information is protected by the Federal Confidentiality of Alcohol and Drug Abuse Patient Records regulations: The Federal rules restrict any use of the information to criminally investigate or prosecute any alcohol or drug abuse patient.[facility]In the event this information is protected by the Federal Confidentiality of Alcohol and Drug Abuse Patient Records regulations: The Federal rules restrict any use of the information to criminally investigate or prosecute any alcohol or drug abuse patient.[facility]In the event this information is protected by the Federal Confidentiality of Alcohol and Drug Abuse Patient Records regulations: The Federal rules restrict any use of the information to criminally investigate or prosecute any alcohol or drug abuse patient.[facility]In the event this information is protected by the Federal Confidentiality of Alcohol and Drug Abuse Patient Records regulations: The Federal rules restrict any use of the information to criminally investigate or prosecute any alcohol or drug abuse patient.[facility]In the event this information is protected by the Federal Confidentiality of Alcohol and Drug Abuse Patient Records regulations: The Federal rules restrict any use of the information to criminally investigate or prosecute any alcohol or drug abuse patient.[facility]In the event this information is protected by the Federal Confidentiality of Alcohol and Drug Abuse Patient Records regulations: The Federal rules restrict any use of the information to criminally investigate or prosecute any alcohol or drug abuse patient.[facility]In the event this information is protected by the Federal Confidentiality of Alcohol and Drug Abuse Patient Records regulations: The Federal rules restrict any use of the information to criminally investigate or prosecute any alcohol or drug abuse patient.[facility]In the event this information is protected by the Federal Confidentiality of Alcohol and Drug Abuse Patient Records regulations: The Federal rules restrict any use of the information to criminally investigate or prosecute any alcohol or drug abuse patient.[facility]In the event this information is protected by the Federal Confidentiality of Alcohol and Drug Abuse Patient Records regulations: The Federal rules restrict any use of the information to criminally investigate or prosecute any alcohol or drug abuse patient.[facility]In the event this information is protected by the Federal Confidentiality of Alcohol and Drug Abuse Patient Records regulations: The Federal rules restrict any use of the information to criminally investigate or prosecute any alcohol or drug abuse patient.[facility]In the event this information is protected by the Federal Confidentiality of Alcohol and Drug Abuse Patient Records regulations: The Federal rules restrict any use of the information to criminally investigate or prosecute any alcohol or drug abuse patient.[facility]In the event this information is protected by the Federal Confidentiality of Alcohol and Drug Abuse Patient Records regulations: The Federal rules restrict any use of the information to criminally investigate or prosecute any alcohol or drug abuse patient.[facility]In the event this information is protected by the Federal Confidentiality of Alcohol and Drug Abuse Patient Records regulations: The Federal rules restrict any use of the information to criminally investigate or prosecute any alcohol or drug abuse patient.[facility]In the event this information is protected by the Federal Confidentiality of Alcohol and Drug Abuse Patient Records regulations: The Federal rules restrict any use of the information to criminally investigate or prosecute any alcohol or drug abuse patient.[facility]In the event this information is protected by the Federal Confidentiality of Alcohol and Drug Abuse Patient Records regulations: The Federal rules restrict any use of the information to criminally investigate or prosecute any alcohol or drug abuse patient.[facility]In the event this information is protected by the Federal Confidentiality of Alcohol and Drug Abuse Patient Records regulations: The Federal rules restrict any use of the information to criminally investigate or prosecute any alcohol or drug abuse patient.[facility]In the event this information is protected by the Federal Confidentiality of Alcohol and Drug Abuse Patient Records regulations: The Federal rules restrict any use of the information to criminally investigate or prosecute any alcohol or drug abuse patient.[facility]In the event this information is protected by the Federal Confidentiality of Alcohol and Drug Abuse Patient Records regulations: The Federal rules restrict any use of the information to criminally investigate or prosecute any alcohol or drug abuse patient.[facility]In the event this information is protected by the Federal Confidentiality of Alcohol and Drug Abuse Patient Records regulations: The Federal rules restrict any use of the information to criminally investigate or prosecute any alcohol or drug abuse patient.[facility]In the event this information is protected by the Federal Confidentiality of Alcohol and Drug Abuse Patient Records regulations: The Federal rules restrict any use of the information to criminally investigate or prosecute any alcohol or drug abuse patient.[facility]In the event this information is protected by the Federal Confidentiality of Alcohol and Drug Abuse Patient Records regulations: The Federal rules restrict any use of the information to criminally investigate or prosecute any alcohol or drug abuse patient.[facility]In the event this information is protected by the Federal Confidentiality of Alcohol and Drug Abuse Patient Records regulations: The Federal rules restrict any use of the information to criminally investigate or prosecute any alcohol or drug abuse patient.[facility]In the event this information is protected by the Federal Confidentiality of Alcohol and Drug Abuse Patient Records regulations: The Federal rules restrict any use of the information to criminally investigate or prosecute any alcohol or drug abuse patient.[facility]In the event this information is protected by the Federal Confidentiality of Alcohol and Drug Abuse Patient Records regulations: The Federal rules restrict any use of the information to criminally investigate or prosecute any alcohol or drug abuse patient.[facility]In the event this information is protected by the Federal Confidentiality of Alcohol and Drug Abuse Patient Records regulations: The Federal rules restrict any use of the information to criminally investigate or prosecute any alcohol or drug abuse patient.[facility]In the event this information is protected by the Federal Confidentiality of Alcohol and Drug Abuse Patient Records regulations: The Federal rules restrict any use of the information to criminally investigate or prosecute any alcohol or drug abuse patient.[facility]In the event this information is protected by the Federal Confidentiality of Alcohol and Drug Abuse Patient Records regulations: The Federal rules restrict any use of the information to criminally investigate or prosecute any alcohol or drug abuse patient.[facility]In the event this information is protected by the Federal Confidentiality of Alcohol and Drug Abuse Patient Records regulations: The Federal rules restrict any use of the information to criminally investigate or prosecute any alcohol or drug abuse patient.[facility]In the event this information is protected by the Federal Confidentiality of Alcohol and Drug Abuse Patient Records regulations: The Federal rules restrict any use of the information to criminally investigate or prosecute any alcohol or drug abuse patient.[facility]In the event this information is protected by the Federal Confidentiality of Alcohol and Drug Abuse Patient Records regulations: The Federal rules restrict any use of the information to criminally investigate or prosecute any alcohol or drug abuse patient.[facility]In the event this information is protected by the Federal Confidentiality of Alcohol and Drug Abuse Patient Records regulations: The Federal rules restrict any use of the information to criminally investigate or prosecute any alcohol or drug abuse patient.[facility]In the event this information is protected by the Federal Confidentiality of Alcohol and Drug Abuse Patient Records regulations: The Federal rules restrict any use of the information to criminally investigate or prosecute any alcohol or drug abuse patient.[facility]In the event this information is protected by the Federal Confidentiality of Alcohol and Drug Abuse Patient Records regulations: The Federal rules restrict any use of the information to criminally investigate or prosecute any alcohol or drug abuse patient.[facility] the event this information is protected by the Federal Confidentiality of Alcohol and Drug Abuse Patient Records regulations: The Federal rules restrict any use of the information to criminally investigate or prosecute any alcohol or drug abuse patient.[facility]In the event this information is protected by the Federal Confidentiality of Alcohol and Drug Abuse Patient Records regulations: The Federal rules restrict any use of the information to criminally investigate or prosecute any alcohol or drug abuse patient.[facility]In the event this information is protected [...] or prosecute any alcohol or drug abuse patient.[facility]In the event this information is protected by the Federal Confidentiality of Alcohol and Drug Abuse Patient Records regulations: The Federal rules restrict any use of the information to criminally investigate or prosecute any alcohol or drug abuse patient.[facility]In the event this information is protected by the Federal Confidentiality of Alcohol and Drug Abuse Patient Records regulations: The Federal rules restrict any use of the information to criminally investigate or prosecute any alcohol or drug abuse patient.[facility]In the event this information is protected by the Federal Confidentiality of Alcohol and Drug Abuse Patient Records regulations: The Federal rules restrict any use of the information to criminally investigate or prosecute any alcohol or drug abuse patient.[facility]In the event this information is protected by the Federal Confidentiality of Alcohol and Drug Abuse Patient Records regulations: The Federal rules restrict any use of the information to criminally investigate or prosecute any alcohol or drug abuse patient.[facility]In the event this information is protected by the Federal Confidentiality of Alcohol and Drug Abuse Patient Records regulations: The Federal rules restrict any use of the information to criminally investigate or prosecute any alcohol or drug abuse patient.[facility]In the event this information is protected by the Federal Confidentiality of Alcohol and Drug Abuse Patient Records regulations: The Federal rules restrict any use of the information to criminally investigate or prosecute any alcohol or drug abuse patient.[facility]In the event this information is protected by the Federal Confidentiality of Alcohol and Drug Abuse Patient Records regulations: The Federal rules restrict any use of the information to criminally investigate or prosecute any alcohol or drug abuse patient.[facility]In the event this information is protected by the Federal Confidentiality of Alcohol and Drug Abuse Patient Records regulations: The Federal rules restrict any use of the information to criminally investigate or prosecute any alcohol or drug abuse patient.[facility]In the event this information is protected by the Federal Confidentiality of Alcohol and Drug Abuse Patient Records regulations: The Federal rules restrict any use of the information to criminally investigate or prosecute any alcohol or drug abuse patient.[facility]In the event this information is protected by the Federal Confidentiality of Alcohol and Drug Abuse Patient Records regulations: The Federal rules restrict any use of the information to criminally investigate or prosecute any alcohol or drug abuse patient.[facility]In the event this information is protected by the Federal Confidentiality of Alcohol and Drug Abuse Patient Records regulations: The Federal rules restrict any use of the information to criminally investigate or prosecute any alcohol or drug abuse patient.[facility]In the event this information is protected by the Federal Confidentiality of Alcohol and Drug Abuse Patient Records regulations: The Federal rules restrict any use of the information to criminally investigate or prosecute any alcohol or drug abuse patient.[facility]In the event this information is protected by the Federal Confidentiality of Alcohol and Drug Abuse Patient Records regulations: The Federal rules restrict any use of the information to criminally investigate or prosecute any alcohol or drug abuse patient.[facility]In the event this information is protected by the Federal Confidentiality of Alcohol and Drug Abuse Patient Records regulations: The Federal rules restrict any use of the information to criminally investigate or prosecute any alcohol or drug abuse patient.[facility]In the event this information is protected by the Federal Confidentiality of Alcohol and Drug Abuse Patient Records regulations: The Federal rules restrict any use of the information to criminally investigate or prosecute any alcohol or drug abuse patient.[facility]In the event this information is protected by the Federal Confidentiality of Alcohol and Drug Abuse Patient Records regulations: The Federal rules restrict any use of the information to criminally investigate or prosecute any alcohol or drug abuse patient.[facility]In the event this information is protected by the Federal Confidentiality of Alcohol and Drug Abuse Patient Records regulations: The Federal rules restrict any use of the information to criminally investigate or prosecute any alcohol or drug abuse patient.[facility] [facility] the event this information is protected by the Federal Confidentiality of Alcohol and Drug Abuse Patient Records regulations: The Federal rules restrict any use of the information to criminally investigate or prosecute any alcohol or drug abuse patient.[facility]In the event this information is protected by the Federal Confidentiality of Alcohol and Drug Abuse Patient Records regulations: The Federal rules restrict any use of the information to criminally investigate or prosecute any alcohol or drug abuse patient.[facility]In the event this information is protected by the Federal Confidentiality of Alcohol and Drug Abuse Patient Records regulations: The Federal rules restrict any use of the information to criminally investigate or prosecute any alcohol or drug abuse patient.[facility]In the event this information is protected by the Federal Confidentiality of Alcohol and Drug Abuse Patient Records regulations: The Federal rules restrict any use of the information to criminally investigate or prosecute any alcohol or drug abuse patient.[facility]In the event this information is protected by the Federal Confidentiality of Alcohol and Drug Abuse Patient Records regulations: The Federal rules restrict any use of the information to criminally investigate or prosecute any alcohol or drug abuse patient.[facility] HospitalIn the event this information is protected by the Federal Confidentiality of Alcohol and Drug Abuse Patient Records regulations: The Federal rules restrict any use of the information to criminally investigate or prosecute any alcohol or drug abuse patient.[facility]In the event this information is protected by the Federal Confidentiality of Alcohol and Drug Abuse Patient Records regulations: The Federal rules restrict any use of the information to criminally investigate or prosecute any alcohol or drug abuse patient.[facility]In the event this information is protected by the Federal Confidentiality of Alcohol and Drug Abuse Patient Records regulations: The Federal rules restrict any use of the information to criminally investigate or prosecute any alcohol or drug abuse patient.[facility]In the event this information is protected by the Federal Confidentiality of Alcohol and Drug Abuse Patient Records regulations: The Federal rules restrict any use of the information to criminally investigate or prosecute any alcohol or drug abuse patient.[facility] HospitalIn the event this information is protected by the Federal Confidentiality of Alcohol and Drug Abuse Patient Records regulations: The Federal rules restrict any use of the information to criminally investigate or prosecute any alcohol or drug abuse patient.[facility] HospitalIn the event this information is protected by the Federal Confidentiality of Alcohol and Drug Abuse Patient Records regulations: The Federal rules restrict any use of the information to criminally investigate or prosecute any alcohol or drug abuse patient.[facility] HospitalIn the event this information is protected by the Federal Confidentiality of Alcohol and Drug Abuse Patient Records regulations: The Federal rules restrict any use of the information to criminally investigate or prosecute any alcohol or drug abuse patient.[facility] HospitalIn the event this information is protected by the Federal Confidentiality of Alcohol and Drug Abuse Patient Records regulations: The Federal rules restrict any use of the information to criminally investigate or prosecute any alcohol or drug abuse patient.[facility] HospitalIn the event this information is protected by the Federal Confidentiality of Alcohol and Drug Abuse Patient Records regulations: The Federal rules restrict any use of the information to criminally investigate or prosecute any alcohol or drug abuse patient.[facility] HospitalIn the event this information is protected by the Federal Confidentiality of Alcohol and Drug Abuse Patient Records regulations: The Federal rules restrict any use of the information to criminally investigate or prosecute any alcohol or drug abuse patient.[facility] HospitalIn the event this information is protected by the Federal Confidentiality of Alcohol and Drug Abuse Patient Records regulations: The Federal rules restrict any use of the information to criminally investigate or prosecute any alcohol or drug abuse patient.[facility] HospitalIn the event this information is protected by the Federal Confidentiality of Alcohol and Drug Abuse Patient Records regulations: The Federal rules restrict any use of the information to criminally investigate or prosecute any alcohol or drug abuse patient.[facility] HospitalIn the event this information is protected by the Federal Confidentiality of Alcohol and Drug Abuse Patient Records regulations: The Federal rules restrict any use of the information to criminally investigate or prosecute any alcohol or drug abuse patient.[facility] HospitalIn the event this information is protected by the Federal Confidentiality of Alcohol and Drug Abuse Patient Records regulations: The Federal rules restrict any use of the information to criminally investigate or prosecute any alcohol or drug abuse patient.[facility] HospitalIn the event this information is protected by the Federal Confidentiality of Alcohol and Drug Abuse Patient Records regulations: The Federal rules restrict any use of the information to criminally investigate or prosecute any alcohol or drug abuse patient.[facility] HospitalIn the event this information is protected by the Federal Confidentiality of Alcohol and Drug Abuse Patient Records regulations: The Federal rules restrict any use of the information to criminally investigate or prosecute any alcohol or drug abuse patient.[facility] HospitalIn the event this information is protected by the Federal Confidentiality of Alcohol and Drug Abuse Patient Records regulations: The Federal rules restrict any use of the information to criminally investigate or prosecute any alcohol or drug abuse patient.[facility] HospitalIn the event this information is protected by the Federal Confidentiality of Alcohol and Drug Abuse Patient Records regulations: The Federal rules restrict any use of the information to criminally investigate or prosecute any alcohol or drug abuse patient.[facility] HospitalIn the event this information is protected by the Federal Confidentiality of Alcohol and Drug Abuse Patient Records regulations: The Federal rules restrict any use of the information to criminally investigate or prosecute any alcohol or drug abuse patient.[facility] HospitalIn the event this information is protected by the Federal Confidentiality of Alcohol and Drug Abuse Patient Records regulations: The Federal rules restrict any use of the information to criminally investigate or prosecute any alcohol or drug abuse patient.[facility] HospitalIn the event this information is protected by the Federal Confidentiality of Alcohol and Drug Abuse Patient Records regulations: The Federal rules restrict any use of the information to criminally investigate or prosecute any alcohol or drug abuse patient.[facility] HospitalIn the event this information is protected by the Federal Confidentiality of Alcohol and Drug Abuse Patient Records regulations: The Federal rules restrict any use of the information to criminally investigate or prosecute any alcohol or drug abuse patient.[facility] Care Teams (unrecognized sec tion and content) Team MemberRelationshipSpecialtyStart DateEnd Date DayvilleWojciech [address] [place] [address] PCP - General6Team MemberRelationshipSpecialtyStart DateEnd Date [facility] W[facility] Mcintyre [address] [place] [address] PCP - General6/11/24Team MemberRelationshipSpecialtyStart DateEnd Date Wojciech Treviño [address] [place] [address] PCP [facility]01/18/10Team MemberRelationshipSpecialtyStart DateEnd Date Wojciech Treviño, DO [address] [place] [address] PCP - [facility]01/18/10Team MemberRelationshipSpecialtyStart DateEnd Date Wojciech Treviño, DO [address] [place] [address] PCP [facility]01/18/10Te MemberRelationshipSpecialtyStart DateEnd Date Wojciech Treviño, DO [address] [place] [address] PCP [facility]01/18/10Te MemberRelationshipSpecialtyStart DateEnd Date Wojciech Treviño, DO [address] [place] [address] PCP - [facility]01/18/10Team MemberRelationshipSpecialtyStart DateEnd Date Wojciech Treviño, DO [address] [place] [address] PCP - [facility]01/18/10 Team Status: Active Member Role Status Dates Wojciech Treviño DO Primary Care Provider Active Zakia Alex ProviderActiveYamilex Lares ProviderActive Magdalena Ho Provider, Attending ProviderActive Team Status: Active Member Role Status Dates Chapincito Lee DO Family Provider Active Wojciech Treviño , DOPrimary Care ProviderActive Team Status: Inactive Member Role Status Dates Wojciech Treviño , Primary Care Provider Active Zakia Alex ProviderActiveYamilex Lares ProviderActive Magdalena Ho Provider, Attending ProviderActiveJoe Daniel ProviderActive Team Status: Inactive Member Role Status Dates Wojciech Treviño , Primary Care Provider Active Zakia Alex ProviderActivePaLaine Lisa ProviderActive Team MemberRelationshipSpecialtyStart DateEnd Date Furlong, Wojciechrebecca Mcintyre, DO [address] [place] [address] PCP - General01/18/10Team MemberRelationshipSpecialtyStart DateEnd Date Furlong, Wojciech Mcintyre, DO [address] [place] [address] PCP - General01/18/10Team MemberRelationshipSpecialtyStart DateEnd Date Furlong, Wojciech Mcintyre, DO [address] [place] [address] PCP - General01/18/10Team MemberRelationshipSpecialtyStart DateEnd Date Furlong, Wojciech Quinnard, DO [address] [place] [address] PCP - General10Team MemberRelationshipSpecialtyStart DateEnd Date Furlong, Wojciech Francisco Javier, DO [address] [place] [address] PCP - General10Team MemberRelationshipSpecialtyStart DateEnd Date Furlong, Wojciech Francisco Javier, DO [address] [place] [address] PCP - General6Team MemberRelationshipSpecialtyStart DateEnd Date MaxloWojciech barnes, DO [address] [place] [address] PCP - General6/10Team MemberRelationshipSpecialtyStart DateEnd Date Wojciech Treviño, DO [address] [place] [address] PCP - General01/18/10Team MemberRelationshipSpecialtyStart DateEnd Date MaxloWojciech barnes, DO [address] [place] [address] PCP - General610Team MemberRelationshipSpecialtyStart DateEnd Date Wojciech Treviño, DO [address] [place] [address] PCP - General10Team MemberRelationshipSpecialtyStart DateEnd Date Wojciech Treviño, DO [address] [place] [address] PCP - General610Team MemberRelationshipSpecialtyStart DateEnd Date MaxloWojciech barnes, DO [address] [place] [address] PCP - General610Team MemberRelationshipSpecialtyStart DateEnd Date FurloWojciech barnes, DO [address] [place] [address] PCP - General6/10Team MemberRelationshipSpecialtyStart DateEnd Date Wojciech Treviño, DO [address] [place] [address] PCP - General6/10Team MemberRelationshipSpecialtyStart DateEnd Date Wojciech Treviño, DO [address] [place] [address] PCP - General610Team MemberRelationshipSpecialtyStart DateEnd Date Wojciech Treviño, DO [address] [place] [address] PCP - General610Team MemberRelationshipSpecialtyStart DateEnd Date Wojciech Treviño, DO [address] [place] [address] PCP - General610Team MemberRelationshipSpecialtyStart DateEnd Date Wojciech Treviño, DO [address] [place] [address] PCP - General610Team MemberRelationshipSpecialtyStart DateEnd Date Wojciech Treviño, DO [address] [place] [address] PCP - General6/10Team MemberRelationshipSpecialtyStart DateEnd Date Wojciech Treviño, DO [address] [place] [address] PCP - General6/10Team MemberRelationshipSpecialtyStart DateEnd Date Wojciech Treviño, DO [address] [place] [address] PCP - General6/10Team MemberRelationshipSpecialtyStart DateEnd Date Wojciech Treviño, DO [address] [place] [address] PCP - General6/11/24Team MemberRelationshipSpecialtyStart DateEnd Date Wojciech Treviño, DO [address] [place] [address] PCP - General6/10Team MemberRelationshipSpecialtyStart DateEnd Date Wojciech Treviño, DO [address] [place] [address] PCP - General610Team MemberRelationshipSpecialtyStart DateEnd Date Wojciech Treviño, DO [address] [place] [address] PCP - General610Team MemberRelationshipSpecialtyStart DateEnd Date Wojciech Treviño DO [address] [place] [address] PCP - General6/10Team MemberRelationshipSpecialtyStart DateEnd Date Wojciech Treviño DO [address] [place] [address] PCP - General01/18/10Team MemberRelationshipSpecialtyStart DateEnd Date Wojciech Treviño DO [address] [place] [address] PCP - General6Team MemberRelationshipSpecialtyStart DateEnd Date Wojciech Treviño DO [address] [place] [address] PCP - General01/18/10Team MemberRelationshipSpecialtyStart DateEnd Date Wojciech Treviño DO [address] [place] [address] PCP - General01/18/10Team MemberRelationshipSpecialtyStart DateEnd Date Wojciech Treviño DO [address] [place] [address] PCP - General610Team MemberRelationshipSpecialtyStart DateEnd Date Wojciech Treviño DO [address] [place] [address] PCP - General01/18/10Team MemberRelationshipSpecialtyStart DateEnd Date Wojciech Treviño DO [address] [place] [address] PCP - General6/4/10Team MemberRelationshipSpecialtyStart DateEnd Date Wojciech Treviño DO [address] [place] [address] PCP - General6/4/10Team MemberRelationshipSpecialtyStart DateEnd Date Wojciech Treviño DO [address] [place] [address] PCP - General6/4/10Team MemberRelationshipSpecialtyStart DateEnd Date Wojciech Treviño DO [address] [place] [address] PCP - General6/4/10Team MemberRelationshipSpecialtyStart DateEnd Date Wojciech Treviño DO [address] [place] [address] PCP - General6/4/10Team MemberRelationshipSpecialtyStart DateEnd Date Wojciech Treviño DO [address] [place] [address] PCP - General6/4/10Team MemberRelationshipSpecialtyStart DateEnd Date Wojciech Treviño DO [address] [place] [address] PCP - General6/4/10Team MemberRelationshipSpecialtyStart DateEnd Date Wojciech Treviño DO [address] [place] [address] PCP [facility]01/18/10Team MemberRelationshipSpecialtyStart DateEnd Date Wojciech Treviño DO [address] [place] [address] PCP - General01/27/19 Team Status: Inactive Member Role Status Dates Wojciech Treviño DO Primary Care Provider Active Start: September 21, 2023 End: September 21, 2023Hapat Conway MDAttending Provider, Referring Provider ActiveStart: September 21, 2023 End: September 21, 2023Team MemberRelationshipSpecialtyStart DateEnd Date Wojciech Treviño DO [address] [place] [address] PCP [facility]01/18/10am MemberRelationshipSpecialtyStart DateEnd Date Wojciech Treviño DO [address] [place] [address] PCP - [facility]01/18/10Team MemberRelationshipSpecialtyStart DateEnd Date Wojciech Treviño DO [address] [place] [address] PCP General01/18/10Team MemberRelationshipSpecialtyStart DateEnd Date Wojciech Treviño DO [address] [place] [address] PCP General01/18/10Te MemberRelationshipSpecialtyStart DateEnd Date Wojciech Treviño DO [address] [place] [address] PCP [facility]01/18/10Te MemberRelationshipSpecialtyStart DateEnd Date Wojciech Treviño DO [address] [place] [address] [facility]01/18/10Te MemberRelationshipSpecialtyStart DateEnd Date Wojciech Treviño DO [address] [place] [address] [facility] General01/27/19 Yuriy Conway MD [address] [facility] [address] [place] [address] Consulting PhysicianCardiology09/17/23Te MemberRelationshipSpecialtyStart Date End Date Wojciech Treviño DO [address] [place] [address] PCP General01/27/19 Yuriy Conway MD [address] [facility] [address] [place] [address] Consulting PhysicianCardiology09/17/23Team MemberRelationshipSpecialtyStart Date End Date Wojciech Treviño DO [address] [place] [address] PCP - General01/27/19 Yuriy Conway MD [address] [facility] [address] [place] [address] Consulting PhysicianCardiology09/17/23 Team Status: Inactive Member Role Status Dates Wojciech Treviño DO Primary Care Provider Active Start: November 26, 2023 End: November 26, 2023Hapat Conway MDAttending Provider, Referring Provider ActiveStart: November 26, 2023 End: November 26, 2023Team MemberRelationshipSpecialtyStart DateEnd Date Maxjason Wojciech Francisco JavierDO [address] [place] [address] PCP - General01/18/10Team MemberRelationshipSpecialtyStart DateEnd Date MaxWojciech mckeonardDO [address] [place] [address] PCP - General01/18/10Team MemberRelationshipSpecialtyStart DateEnd Date MaxWojciech mckeon DO [address] [place] [address] PCP - General01/18/10Team MemberRelationshipSpecialtyStart DateEnd Date MaxWojciech mckeon DO [address] [place] [address] PCP - General01/27/19 Yuriy Conway MD [address] [facility] [address] [place] [address] Consulting PhysicianCardiology09/17/23Team MemberRelationshipSpecialtyStart Date End Date Wojciech Treviño DO [address] [place] [address] PCP - General01/18/10Team MemberRelationshipSpecialtyStart DateEnd Date Wojciech Treviño DO [address] [place] [address] PCP - General01/18/10Team MemberRelationshipSpecialtyStart DateEnd Date Wojciech Treviño DO [address] [place] [address] PCP - General01/18/10Team MemberRelationshipSpecialtyStart DateEnd Date Wojciech Treviño DO [address] [place] [address] PCP - General01/18/10Team MemberRelationshipSpecialtyStart DateEnd Date Wojciech Treviño DO [address] [place] [address] PCP - General01/18/10Team MemberRelationshipSpecialtyStart DateEnd Date Wojciech Treviño DO [address] [place] [address] PCP - General6/4/10Team MemberRelationshipSpecialtyStart DateEnd Date Wojciech Treviño DO [address] [place] [address] PCP - General6/10Team MemberRelationshipSpecialtyStart DateEnd Date Wojciech Treviño DO [address] [place] [address] PCP - General6/10Team MemberRelationshipSpecialtyStart DateEnd Date Wojciech Treviño DO [address] [place] [address] PCP - General6/4/10Team MemberRelationshipSpecialtyStart DateEnd Date Wojciech Treviño DO [address] [place] [address] PCP - General6/10Team MemberRelationshipSpecialtyStart DateEnd Date Wojciech Treviño DO [address] [place] [address] PCP - General6/10Team MemberRelationshipSpecialtyStart DateEnd Date Wojciech Treviño DO [address] [place] [address] PCP - General6/410Team MemberRelationshipSpecialtyStart DateEnd Date Luis AlfredomollyWojciech MD [address] [place] [address] PCP - [facility]08/05/23Team MemberRelationshipSpecialtyStart Date End Date Wojciech Treviño DO [address] [place] [address] PCP - General01/18/10Team MemberRelationshipSpecialtyStart DateEnd Date Wojciech Treviño DO [address] [place] [address] PCP - [facility]02/16/24Team MemberRelationshipSpecialtyStart DateEnd Date Wojciech Treviño DO [address] [place] [address] PCP - [facility]01/18/10Team MemberRelationshipSpecialtyStart DateEnd Date Wojciech Treviño DO [address] [place] [address] PCP - General01/18/10Team MemberRelationshipSpecialtyStart DateEnd Date Wojciech Treviño DO [address] [place] [address] PCP - [facility]01/18/10Team MemberRelationshipSpecialtyStart DateEnd Date Wojciech Treviño DO [address] [place] [address] PCP - General01/27/19 Yuriy Conway MD [address] [address] [place] [address] Consulting PhysicianCardiology09/17/23Team MemberRelationshipSpecialtyStart Date End Date Wojciech Treviño DO [address] [place] [address] PCP - General01/27/19 Yuriy Conway MD [address] [facility] [place] [address] Consulting PhysicianCardiology2Te MemberRelationshipSpecialtyStart Date End Date Wojciech Treviño DO [address] [place] [address] PCP General01/18/10Te MemberRelationshipSpecialtyStart DateEnd Date Wojciech Treviño DO [address] [place] [address] PCP - General01/27/19 Yuriy Conway MD [address] [facility] [place] [address] Consulting PhysicianCardiologyTe MemberRelationshipSpecialtyStart Date End Date Wojciech Treviño DO [address] [place] [address] PCP - General01/27/19 Yuriy Conway MD [address] [facility] [address] [place] [address], [place] [address] Consulting PhysicianCardiology09/17/23Team MemberRelationshipSpecialtyStart Date End Date Wojciech Treviño MD [address] [place] [address] PCP - GeneralFamily Yggkdqjf43/20/23Team MemberRelationshipSpecialtyStart Date End Date Wojciech Treviño MD [address] [place] [address] PCP - GeneralFamily Poxxdczx94/20/23Team MemberRelationshipSpecialtyStart Date End Date Wojciech Treviño MD [address] [place] [address] PCP - GeneralFamily Lhrxtcbw70/20/23Team MemberRelationshipSpecialtyStart Date End Date Wojciech Treviño MD [address] [place] [address] PCP - GeneralFamily Svjsbyfx85/20/23Team MemberRelationshipSpecialtyStart Date End Date Wojciech Treviño MD [address] [place] [address] PCP - GeneralFamily Suzujkxf52/20/23Team MemberRelationshipSpecialtyStart Date End Date Wojciech Treviño DO PCP - General01/27/19 Yuriy Conway MD [address] [facility] [address] [place] [address] Consulting PhysicianCardiology09/17/23Team MemberRelationshipSpecialtyStart Date End Date Wojciech Treviño DO [address] [place] [address] PCP - General01/18/10Team MemberRelationshipSpecialtyStart DateEnd Date Wojciech Treviño DO [address] [place] [address] PCP - General01/18/10Team MemberRelationshipSpecialtyStart DateEnd Date Wojciech Treviño DO [address] [place] [address] PCP - General01/18/10 Team Status: Inactive Member Role Status Dates Wojciech Treviño DO Primary Care Provider Active Start: August 29, 2024 End: August 29, 2024Nelida Kellyending ProviderActiveStart: August 29, 2024 End: August 29, 2024 Team Status: Active Member Role Status Dates Wojciech Trevñio DO Primary Care Provider Active Start: August 29, 2024 Yuriy Conway MDOther ProviderActiveStart: August 29, 2024 Christiano Lorenzo ProviderActiveStart: August 29, 2024 Team MemberRelationshipSpecialtyStart DateEnd Date Wojciech Treviño DO [address] [place] [address] PCP - General01/27/19 Yuriy Conway MD [address] [facility] [facility] [address] [place] [address] Consulting PhysicianCardiology09/17/23 Team Status: Inactive Member Role Status Dates Wojciech Treviño DO Primary Care Provider Active Start: September 15, 2024 End: September 15, 2024HaChristiano Augustin ProviderActiveStart: September 15, 2024 End: September 15, 2024Team MemberRelationshipSpecialtyStart DateEnd Date Wojciech Treviño DO [address] [facility] [place] [address] PCP - GeneralH[facility]02/16/24 Team Status: Inactive Member Role Status Dates Wojciech Treviño DO Primary Care Provider Active Start: September 19, 2024 End: September 19, 2024HaChristiano Augustin ProviderActiveStart: September 19, 2024 End: September 19, 2024Team MemberRelationshipSpecialtyStart DateEnd Date Cha Staley, RIGGING MAN-[employer] [address] [place] [address] PCP - GeneralInternal Medicine04/15/23Team MemberRelationshipSpecialtyStart Date End Date Cha Staley, RIGGING MAN-[employer] [address] [place] [address] PCP - GeneralInternal Medicine04/15/23Team MemberRelationshipSpecialtyStart Date End Date Cha Staley RIGGING [employer] [address] [place] [address] PCP - GeneralInternal Medicine04/15/23Team MemberRelationshipSpecialtyStart Date End Date Cha Staley, RIGGING MAN-[facility] [address] [place] [address] PCP - GeneralInternal Medicine04/15/23Team MemberRelationshipSpecialtyStart Date End Date Wojciech Treviño DO [address], [place] [address] PCP - Generalmily Medicine02/16/24Team MemberRelationshipSpecialtyStart DateEnd Date Wojciech Treviño DO [address], [place] [address] PCP - Generalmily Medicine02/16/24Team MemberRelationshipSpecialtyStart DateEnd Date Wojciech Treviño DO [address], [place] [address] PCP - GeneralFamily Medicine02/16/24Team MemberRelationshipSpecialtyStart DateEnd Date Wojciech Treviño DO [address], [place] [address] PCP - Generalmily Medicine02/16/24Team MemberRelationshipSpecialtyStart DateEnd Date Wojciech Treviño DO [address], [place] [address] PCP - GeneralFamily Medicine02/16/24Team MemberRelationshipSpecialtyStart DateEnd Date Wojciech Treviño DO [address], [place] [address] PCP - [facility]02/16/24Team MemberRelationshipSpecialtyStart DateEnd Date Wojciech Treviño DO [address], [place] [address] PCP - [facility]02/16/24Team MemberRelationshipSpecialtyStart DateEnd Date Wojciech Treviño DO [address], [place] [address] PCP - [facility]02/16/24Team MemberRelationshipSpecialtyStart DateEnd Date Wojciech Treviño DO [address], [place] [address] PCP - [facility]02/16/24Team MemberRelationshipSpecialtyStart DateEnd Date Wojciech Treviño DO [address], [place] [address] PCP - [facility]02/16/24Team MemberRelationshipSpecialtyStart DateEnd Date Wojciech Treviño DO [address], [place] [address] PCP - [facility]02/16/24Team MemberRelationshipSpecialtyStart DateEnd Date Wojciech Treviño DO [address] [place] [address] PCP - General01/18/10Team MemberRelationshipSpecialtyStart DateEnd Date Wojciech Treviño DO [address] [place] [address] PCP - General01/18/10Team MemberRelationshipSpecialtyStart DateEnd Date Wojciech Treviño DO [address] [place] [address] PCP - General01/18/10Team MemberRelationshipSpecialtyStart DateEnd Date Wojciech Treviño DO [address] [place] [address] PCP - General01/18/10Team MemberRelationshipSpecialtyStart DateEnd Date Wojciech Treviño DO [address] [place] [address] [facility] - [facility]/16/24Team MemberRelationshipSpecialtyStart DateEnd Date Wojciech Treviño DO [address] [place] [address] PCP - General01/18/10Team MemberRelationshipSpecialtyStart DateEnd Date Wojciech Treviño DO [address] [place] [address] PCP - General01/18/10Team MemberRelationshipSpecialtyStart DateEnd Date Wojciech Treviño DO [address] [place] [address] PCP - General01/27/19 Yuriy Conway MD [facility] [facility], [address] [place] [address] Consulting PhysicianCardiology09/17/23Team MemberRelationshipSpecialtyStart Date End Date Wojciech Treviño DO [address] [place] [address] PCP - General01/18/10Team MemberRelationshipSpecialtyStart DateEnd Date Wojciech Treviño DO [address] [place] [address] PCP - General01/18/10Team MemberRelationshipSpecialtyStart DateEnd Date Wojciech Treviño Francisco JavierDO walter [address] [place] [address] PCP - General01/18/10Team MemberRelationshipSpecialtyStart DateEnd Date Wojciech Treviño DO Taz [address] [place] [address] PCP - Generalmily [facility]02/16/24Team MemberRelationshipSpecialtyStart DateEnd Date Luis AlfredoWojciech barnes DO [address] [place] [address] PCP - General01/18/10Team MemberRelationshipSpecialtyStart DateEnd Date Wojciech Treviño DO [address] [place] [address] PCP - General01/18/10Team MemberRelationshipSpecialtyStart DateEnd Date Wojciech Treviño DO [address] [place] [address] PCP - General01/18/10Team MemberRelationshipSpecialtyStart DateEnd Date Wojciech Treviño DO [address] [place] [address] PCP - General01/18/10Team MemberRelationshipSpecialtyStart DateEnd Date Luis AlfredomollyWojciech MD PCP - GeneralFamily Utceqttn75/20/23Team MemberRelationshipSpecialtyStart Date End Date Wojciech Treviño DO [address] [place] [address] PCP - General01/18/10Team MemberRelationshipSpecialtyStart DateEnd Date Wojciech Treviño DO [address] [place] [address] PCP - General6/4/10Team MemberRelationshipSpecialtyStart DateEnd Date Wojciech Treviño DO [address] [place] [address] PCP - General6/4/10Team MemberRelationshipSpecialtyStart DateEnd Date Wojciech Treviño DO [address] [place] [address] PCP - General6//10Team MemberRelationshipSpecialtyStart DateEnd Date Wojciech Treviño DO [address] [place] [address] PCP - General6/4/10Team MemberRelationshipSpecialtyStart DateEnd Date Wojciech Treviño DO [address] [place] [address] PCP - General6/4/10Team MemberRelationshipSpecialtyStart DateEnd Date Wojciech Treviño DO [address] [place] [address] PCP - General6/4/10Team MemberRelationshipSpecialtyStart DateEnd Date Wojciech Treviño DO [address] [place] [address] PCP - General6/4/10Team MemberRelationshipSpecialtyStart DateEnd Date Wojciech Treviño DO [address] [place] [address] PCP - General01/18/10Team MemberRelationshipSpecialtyStart DateEnd Date Wojciech Treviño DO [address] [place] [address] PCP - General01/18/10Team MemberRelationshipSpecialtyStart DateEnd Date Wojciech Treviño DO [address] [place] [address] PCP - General01/18/10Team MemberRelationshipSpecialtyStart DateEnd Date Wojciech Treviño DO [address] [place] [address] PCP - General01/18/10Team MemberRelationshipSpecialtyStart DateEnd Date Wojciech Treviño DO [address] [place] [address] PCP - General01/18/10Team MemberRelationshipSpecialtyStart DateEnd Date Wojciech Treviño DO [address] [place] [address] [facility] - [facility] 02/16/24Team MemberRelationshipSpecialtyStart DateEnd Date Wojciech Treviño DO [address] [place] [address] PCP - GeneralFamily Medicine02/16/24 Reason for Visit (unrecogniz ed section and content) ReasonCommentsInfusionSpecialtyDiagnoses / ProceduresReferred By ContactReferred To Contact Diagnoses Systemic lupus erythematosus, unspecified SLE type, unspecified organ involvement status ([facility]) Evelin Abel MD [address] [place] [address] Rheu Infusion Main [address] [place] [address] Referral IDStatusReasonStart DateExpiration DateVisits RequestedVisits [id number]/6/20248/[id number]ga Diagnoses / ProceduresReferred By ContactReferred To ContactRHEUMATOLOGY INFUSION Diagnoses Systemic lupus erythematosus, unspecified M32.9 (ICD-10-CM) - Systemic lupus erythematosus, unspecified Procedures BELIMUMAB INJECTION THER/PROPH/DIAG IV INF, INIT THER/PROPH/DIAG IV INF ADDON IV BENLYSTA [id number] Evelin Abel MD [address] [place] [address] Rheu Infusion Main [address] [place] [address] Referral IDStatusReasonStart DateExpiration DateVisits RequestedVisits [id number]/17/202012/[id number] DateComments Refill Bqtmlgc05/10/2022ReasonCommentsResultsReasonCommentsRefill RequestReason CommentsResultsOrdersReasonCommentsOrdersEvusheldReasonCommentsRadiology BMD ReasonCommentsOsteopeniaReasonOnset DateCommentsRefill Gpedagv98/20/2022Reason CommentsOsteopeniaReasonOnset DateCommentsRefill Gphgvnc66/28/2022ReasonComments Surgical FollowupReasonCommentsNew PatientElevated calciumSpecialtyDiagnoses / ProceduresReferred By ContactReferred To ContactEndocrinology Diagnoses Hypercalcemia Hyperparathyroid (HCC) Procedures CONSULT TO ENDOCRINOLOGY OFFICE/OUTPATIENT [facility] 60-74 MINUTES Obdulia Peña PA-C [address] [place] [address] Referral IDStatusReasonStart DateExpiration DateVisits RequestedVisits [id number] PCP Requested Referral [id number]w SheetReasonCommentsRadiology NM SpecialtyDiagnoses / ProceduresReferred By ContactReferred To ContactMOLECULAR & FUNCTIONAL IMAGING Diagnoses Hyperparathyroidism (HCC) Procedures NM PARATHYROID W SPECT/CT PARATHYROID IMAGING W/TOMOGRAPHIC SPECT & CT Monica Booker MD [address] [place] [address] Molecular & Functional Imaging [address] [place] [address] Referral IDStatusReasonStart DateExpiration DateVisits RequestedVisits [id number] Auto-Generated Referral [id number] NMSpecialtyDiagnoses / Procedures Referred By ContactReferred To ContactMOLECULAR & FUNCTIONAL IMAGING Diagnoses Hyperparathyroidism (HCC) Procedures NM PARATHYROID W SPECT/CT PARATHYROID IMAGING W/TOMOGRAPHIC SPECT & CT Monica Booker MD [address] [place] [address] Molecular & Functional Imaging [address] [place] [address] ReasonCommentsThyroid ProblemSpecialtyDiagnoses / ProceduresReferred By Contact Referred To Contact Diagnoses Hypercalcemia Hyperparathyroid (HCC) Procedures CONSULT TO ENDOCRINE SURGERY OFFICE/OUTPATIENT [facility] 60-74 MINUTES Lemuel Bejarano V, MD [address] [place] [address] Referral IDStatusReasonStart DateExpiration DateVisits RequestedVisits [id number] PCP Requested Referral [id number] ConsultHyperparathyroidismReason CommentsOrdersReasonCommentsCare Coordinator - OtherReasonCommentsPatient Update ReasonCommentsPreparations For SurgeryReasonCommentsResultsCovidReasonComments Patient QuestionI spoke to Jesus and she will be coming for her infusion on Thursday09-15-22. She states that she had parathyroid surgery since her last infusion. She has had a follow up apt with her PCP, and her incision is healed. She was not on any antibiotics for this procedure. She denies having been sick or on any recent antibiotics.SpecialtyDiagnoses / ProceduresReferred By Contact Referred To ContactRHEUMATOLOGY INFUSION Diagnoses Systemic lupus erythematosus, unspecified M32.9 (ICD-10-CM) - Systemic lupus erythematosus, unspecified Procedures BELIMUMAB INJECTION THER/PROPH/DIAG IV INF, INIT THER/PROPH/DIAG IV INF ADDON IV BENLYSTA J0490 Evelin Abel MD [facility] [place] [address] Rheu Infusion Main A[address] [place] [address] ReasonOnset DateCommentsRefill Xhhwrvf4409/21/2022LialdaReasonOnset DateComments Refill Fmgniig5810/28/2022ReasonOnset DateCommentsRefill Drfqykt0011/24/2022iron ReasonOnset DateCommentsRefill Dpedhtk2301/13/2023olestipolReasonCommentsCallous Preulcerative calluses right 1 plantar and 2+3ReasonOnset DateCommentsRefill RequestFollow Up02/09/2023ReasonCommentsUlcerRight second ulcerReasonComments ResultslabsReasonCommentsAppointmentReasonCommentsUlcerRight 1stReasonComments ResultsColonReasonCommentsUlcerative ColitisReasonCommentsMedication Question ReasonCommentsFoot Pain (Midfoot)leftReasonCommentsAnnual ExamSpecialtyDiagnoses / ProceduresReferred By ContactReferred To Contact Diagnoses Paroxysmal atrial fibrillation (CMS/HCC) Procedures ECG 12 Lead Yuriy Conway MD [address] [facility], [address] [place] [address] Referral IDStatusReasonStart DateExpiration DateVisits RequestedVisits [id number]/1/20241/31/[id number]azEosempzb CallousBilateral footSpecialtyDiagnoses / ProceduresReferred By ContactReferred To ContactMR IMAGING Diagnoses Pancreatic cyst Procedures MRI PANC/JEANIE WO/W IVCON MRI ABDOMEN W/O & W/CONTRAST MATERIAL Rima Mcallister, ANTONIO.GUIDE EXCURSION [address] [facility] [place] [phone] [place] [address] Referral IDStatusReasonStart DateExpiration DateVisits RequestedVisits [id number] Auto-Generated Referral /[id number]-sbAPPNwxypcwfhBsoabpqhm / Procedures Referred By ContactReferred To ContactCardiology Diagnoses Paroxysmal atrial fibrillation (CMS/HCC) Procedures Follow Up In Cardiology Yuriy Conway MD [facility] [facility], [address] [place], [place] [address] Yuriy Conway MD [address] [facility], [address] [place], [place] [address] Referral IDStatusReasonStart DateExpiration DateVisits RequestedVisits [id number]/1/20241/31/[id number] VisitSpecialty Diagnoses / ProceduresReferred By ContactReferred To Contact Diagnoses Paroxysmal atrial fibrillation (CMS/HCC) Procedures ECG 12 Lead Yuriy Conway MD [address], [address] [place] [address] Referral IDStatusReasonStart DateExpiration DateVisits RequestedVisits [id number]/14/20243/14/[id number] Fibrillation Atrial FlutterSpecialtyDiagnoses / ProceduresReferred By ContactReferred To ContactCardiology Diagnoses Paroxysmal atrial fibrillation ([facility]/HCC) Yuriy Conway MD [facility] [facility] 2, [facility] [address] [place] [address] [place] [address] [place] [address] Referral IDStatusReasonStart DateExpiration DateVisits RequestedVisits [id number] Specialty Services Required [id number] Pain (Midfoot)Bilateral foot painReason Onset DateCommentsRefill Eayoant74/30/2024ReasonCommentsUlcerative Colitis SpecialtyDiagnoses / ProceduresReferred By ContactReferred To Contact Diagnoses Systemic lupus erythematosus, unspecified SLE type, unspecified organ involvement status ([facility]) Evelin Abel MD [address] [place] [address] Rheu [facility] Main [address] [place] [address] ReasonCommentsNew PatientReasonOnset DateCommentsRefill Coxywzm23/14/2024Reason CommentsRefill RequestprotonixReasonOnset DateCommentsRefill Oozhqrn6203/04/2024 ReasonCommentsRadio Gen D01VqcizegypEzxtdyetn / ProceduresReferred By Contact Referred To ContactXR IMAGING Diagnoses Osteopenia of multiple sites S/P parathyroidectomy prison (current) use of 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 Acute pain of left knee Procedures XR KNEE GENERAL 4V AP BOTH/PA BOTH/LAT/MERC LEFT RADIOLOGIC EXAM KNEE COMPLETE 4/MORE VIEWS Obdulia Ann PA-C [address] [place] [address] X[facility] [place] [address] Referral IDStatusReasonStart DateExpiration DateVisits RequestedVisits [id number] Auto-Generated Referral /[id number] USSpecialtyDiagnoses / Procedures Referred By ContactReferred To ContactUS IMAGING Diagnoses Membranous glomerulonephritis Procedures US KIDNEY/BLADDER US RETROPERITONEAL REAL TIME W/IMAGE COMPLETE Radu Salazar MD [address] [place] [address] Us Imaging [place] [address] Referral IDStatusReasonStart DateExpiration DateVisits RequestedVisits [id number] Auto-Generated Referral /[id number] / ProceduresReferred By ContactReferred To Contact Diagnoses Systemic lupus erythematosus, unspecified SLE type, unspecified organ involvement status (HCC) Procedures BELIMUMAB INJECTION Evelin Abel MD [address] [place] [address] Rheu Infusion Main [address] [place] [address] Referral IDStatusReasonStart DateExpiration DateVisits RequestedVisits [id number]/6/202412/[id number] XR ReasonCommentsNewReasonCommentsRadiology XRSpecialtyDiagnoses / Procedures Referred By ContactReferred To ContactXR IMAGING Diagnoses Left knee pain, unspecified chronicity Procedures XR KNEE SPECIFY 1V LEFT RADIOLOGIC EXAMINATION KNEE 1/2 VIEWS Alfredo Norwood PA-C [address] [facility] [place] [address] Xr Imaging [place] [address] Referral IDStatusReasonStart DateExpiration DateVisits RequestedVisits [id number] Auto-Generated Referral /[id number] DateCommentsre: PT4Contacted re: last PT she wanted to fu w/ Dr. Childress before continuing on. She stated per Fior no recommendation of anymore PT at this time; sx is needed due to nafw-nz-mvfw. ReasonCommentsMed RefillReasonCommentsRefill RequestPantoprazole 40mgReason CommentsAtrial FibrillationSpecialtyDiagnoses / ProceduresReferred By Contact Referred To Contact Diagnoses Paroxysmal atrial fibrillation (Multi) Procedures ECG 12 lead (Clinic Performed) Christian Kaur, [employer]IGGING MAN[employer] [address] [place] [address] Referral IDStatusReasonStart DateExpiration DateVisits RequestedVisits [id number]/1/20247/574211HbwmjqXyxfwtvvWcdzef-vrTacuic FibrillationReferral IDStatusReasonStart DateExpiration DateVisits Requested Visits [id number]/30/20249/319750TsgblsfugTbtezpxoz / ProceduresReferred By ContactReferred To ContactPhysical Therapy Diagnoses Unilateral primary osteoarthritis, left knee Procedures ME PHYSICAL THERAPY EVALUATION LOW COMPLEX 20 MINS Wojciech Treviño MD [address] [facility] [place] [address] Kimmy Cerda, PT Referral IDStatusReasonStart DateExpiration DateVisits RequestedVisits [id number]/20/20242/[id number] DateCommentsre: PT's this week05/16/2024Shestela had called and lm noting this week she is busy w/ scheduled doctor appts and the 2 PT's scheduled she is unable to attend. She said Thursday she has a fu w/ referring provider and noted she'd contact after that w/ recommendation.ReasonCommentsFollow-upS/p watchman procedureSpecialty Diagnoses / ProceduresReferred By ContactReferred To ContactCardiology Diagnoses Paroxysmal atrial fibrillation (Multi) Procedures Follow Up In Cardiology [facility]uriy [facility] MD [facility], [address] [address] Phone: tel: fax: Yuriy Conway MD [address] [facility], [address] [place] [address] Phone: tel: fax: Referral IDStatusReasonStart DateExpiration DateVisits RequestedVisits [id number] Review/719925IhtysfGjmbnhnuKksiwqefcsq Ortho appt cancel/rescheduleReasonCommentsCoughCold,congestion over a weekReason CommentsMAWReasonOnset DateCommentsMed Cnsnbf254ReasonOnset DateComments Med Pwmdhy864ReasonCommentsFollow-upReasonOnset DateCommentsResults 1577CumordXnjmiatkKoadab-rc2-6 weekReasonOnset DateCommentsMed Refill 4ReasonOnset DateCommentsMed Uhtksc094ReasonCommentsFollow-up Left armReasonCommentsCoughSore throat and ear ache-07/09Sore ThroatReasonOnset DateCommentsMed Klpywy6507/18/2024SpecialtyDiagnoses / ProceduresReferred By ContactReferred To Contact Diagnoses Systemic lupus erythematosus, unspecified SLE type, unspecified organ involvement status (HCC) Procedures BELIMUMAB INJECTION Evelin Abel MD [address] [place] [address] Phone: tel: fax: Rheumatology [address] [address] Phone: tel: ReasonCommentsdiscuss 6 min walkPer cardialogistReasonCommentsFollow UpReason Commentsknee injectionsleftReasonOnset DateCommentsRefill Btrkkvb1511/30/2024 ReasonCommentsFollow-up4 month, paroxysmal atrial fibrillationSpecialtyDiagnoses / ProceduresReferred By ContactReferred To ContactCardiology Diagnoses Chronic diastolic heart failure Procedures Follow Up In Cardiology Yuriy Conway MD [address] [facility] 2, [address] [place] [address] Phone: tel: fax: Yuriy Conway MD 703 [facility] 2, [address] [place] [address] Phone: tel: fax: Referral IDStatusReasonStart DateExpiration DateVisits RequestedVisits [id number]/20/202412/20/433334DxupevNmnjmqpzPbae Swelling ReasonCommentsFoot SwellingAnd painReasonCommentsAppointmentXrayReasonComments Ankle PainRightSwellingRight foot and ankleFoot Pain (Midfoot)Dorsal midfoot SpecialtyDiagnoses / ProceduresReferred By ContactReferred To ContactXR IMAGING Diagnoses Pain in right foot Procedures XR FOOT GENERAL 3V AP/LAT/OBL RIGHT RADEX FOOT COMPLETE MINIMUM 3 VIEWS Beverly Franco, [place] [address] [place] [address] Phone: tel: fax: [place] [address] Referral IDStatusReasonSttell city DateExpiration DateVisits RequestedVisits [id number] Auto-Generated Referral /[id number] of BreathReasonCommentsFollow-up6 monthReasonCommentsnose bleedsStarted last year October of 2023 approx x 2On and off through the winterMay happened more frequentlyNormally from the left. At times from both nostrils and will go down the back of her throat and outof her mouth. Fall this November 2024 hitting her head Facial pressure noted before they start, lasting 15 min to 30 min has used a clamp to stop bleeding. Endorses taking blood thinning medication for approx 20 yrsReasonCommentsFractureClosed nondisplaced fx of the navicular bone right footSpecialtyDiagnoses / Procedures Referred By ContactReferred To ContactXR IMAGING Diagnoses Sprain of right foot, initial encounter Closed nondisplaced fracture of navicular bone of right foot, initial encounter Osteoarthritis of midtarsal joint of right foot Procedures XR FOOT GENERAL 3V AP/LAT/OBL RIGHT RADEX FOOT COMPLETE MINIMUM 3 VIEWS Beverly Franco, [place] [address] [place] [address] Phone: tel: fax: [facility] [address] Referral IDStatusReasonStart DateExpiration DateVisits RequestedVisits [id number] Auto-Generated Referral /[id number] UpLast nose bleeds noted Thursday night and yesterday morning lasting approx 20-30 min large clot notedin her throat later after the nose bleed Head ache before it startedReasonCommentsFollow-upPatient here for POC Dr Hall, right foot surgery not yet scheduled.SpecialtyDiagnoses / ProceduresReferred By ContactReferred To Contact Diagnoses Pre-operative clearance Procedures ECG 12 Lead Abisai Barraza, RIGGING MAN-[employer]SION [facility] [facility] 2, [address] [place] [address] Phone: tel: fax: Referral IDStatusReasonStart DateExpiration DateVisits RequestedVisits [id number]/13/20256/047216NkzwewBropx DateCommentsre: PT 01/30/2025ReasonCommentsPT EvalPT DischargeSpecialtyDiagnoses / Procedures Referred By ContactReferred To ContactREHAB AND SPORTS THERAPY INS Diagnoses Closed fracture of left foot, initial encounter Procedures CONSULT TO PHYSICAL THERAPY PHYSICAL THERAPY EVALUATION HIGH COM[place]X [address] [place] [address] [place] [address] Phone: tel: fax: [facility] [address] [place] [address] Referral IDStatusReasonSttell city DateExpiration DateVisits RequestedVisits [id number] PCP Requested Referral Auto-Generated Referral /[id number]k PatientCT RESULTSReasonComments Surgical Follow UpReasonOnset DateCommentsRefill Ehmoxae6002/21/2025ReasonComments Preparations For SurgeryEliquis instructionsReasonCommentsPreparations For SurgeryPACCReasonCommentsPre-Op VisitReasonCommentsProcedureInfusionReason CommentsReceived Outside Medical RecordsReasonCommentsPost OpReasonComments Diarrhea, stomach crampingReasonOnset DateCommentsMed Dsreum1805/17/2025 Goals (unrecognized section and content) Goals may [...] Medications (un recognized section and content) Medication OrderMAR ActionAction DateDoseRateSite acetaminophen 1,000 mg tab(s) (TYLENOL) 1,000 mg, ORAL, ONCE, 1 dose, On Thu10/01/23 at 0930 Given10/01/2023 9:40 AM EST1,000 mg belimumab 1,000 mg in NaCl 0.9% 250 mL (BENLYSTA) 1,000 mg, INTRAVENOUS, at 125 mL/hr, Administer over 120 Minutes, ONCE, 1 dose, On Theresa 10/01/23 at 0930, EXP: 1600 10/01/23 --- Protect From Light --- Total Volume: 250 mL Protect From Light New Bag/Syringe/[id number]/01/2023 10:17 AM EST1,000 mg125 mL/hr methylPREDNISolone sod succinate(PF) 60 mg injection (SOLU-Medrol) 60 mg, INTRAVENOUS, ONCE, 1 dose, On Theresa 10/01/23 at 0930 Given10/01/2023 10:17 AM EST60 mgMedication OrderMAR ActionAction DateDoseRate Site ALPRAZolam 0.5 mg tab(s) (XANAX) 0.5 mg, ORAL, ONCE, 1 dose, On Thu10/23/23 at 1200 Given10/23/2023 11:52 AM EST0.5 mg PRN Active and Recently Administ ered Medications (unrecognized section and content) Medication Order/// heparin 1,000 unit/mL injection (CANCELED) As needed, Starting on Thu01/05/24 at 0947, Intraprocedure * 0947 (Given - Provider: Mi Finney RN - Comment: anticoagulation for left sided ablationverified by JITENDRA Pink) * 1009 (Given - Provider: Mi Finney RN - Comment: anticoagulation for left sided ablationverified by JITENDRA Pink) heparin 25,000 Units in dextrose 5% 250 mL (100 Units/mL) infusion (premix) (CANCELED) Continuous PRN, Starting on Thu01/05/24 at 0948, Intraprocedure * 0948 (New Bag - Provider: Mi Finney RN - Comment: anticoagulation for left sided ablationverified by JITENDRA Pink) * 1149 (Stopped - Provider: Mi Finney RN) sodium chloride 0.9% infusion (COMPLETED) Continuous PRN, Starting on Thu01/05/24 at 0941, Intraprocedure * 0941 (New Bag - Provider: Mi Finney RN) Medication Order// bupivacaine PF (Marcaine) 0.5 % (5 mg/mL) injection (CANCELED) As needed, Starting on Theresa 04/07/24 at 1403, Intraprocedure * 1403 (Given - Provider: Jose Ogden RN) ceFAZolin (Ancef) injection (CANCELED) As needed, Starting on Theresa 04/07/24 at 1355, Intraprocedure * 1355 (Given - Provider: Larry Bedolla RN) fentaNYL PF (Sublimaze) injection (CANCELED) As needed, Starting on Theresa 04/07/24 at 1356, Intraprocedure * 1356 (Given - Provider: Jose Ogden RN) * 1408 (Given - Provider: Jose Ogden RN) * 1416 (Given - Provider: Jose Ogden RN) heparin 1,000 unit/mL injection (CANCELED) As needed, Starting on Theresa 04/07/24 at 1413, Intraprocedure * 1413 (Given - Provider: Larry Bedolla RN) iohexol (OMNIPaque) 350 mg iodine/mL solution (CANCELED) As needed, Starting on Theresa 04/07/24 at 1420, Intraprocedure * 1420 (Given - Provider: Jose Ogden RN - Comment: RUKHSANA) midazolam (Versed) injection (CANCELED) As needed, Starting on Theresa 04/07/24 at 1357, Intraprocedure * 1357 (Given - Provider: Jose Ogden RN) * 1408 (Given - Provider: Jose Ogden RN) * 1416 (Given - Provider: Jose Ogden RN) FOR [...] BE BASED ON THE PRIMARY CLINICAL RECORDS. [facility]. provides no warranty or guarantee of the accuracy or completeness of information in this document.
[2025-07-25 09:41] LABS: Alanine Aminotransferase 36 U/L (14-59); Albumin Globulin Ratio 1.0; Albumin Level 3.1 g/dL (3.4-5.0); Alkaline Phosphatase 117 U/L (46-116); Anion Gap 11.8; Aspartate Amino Transferase 17 U/L (15-37); Blood Urea Nitrogen 13.0 mg/dL (7.0-18.0); Calcium 8.7 mg/dL (8.5-10.1); Carbon Dioxide 28.1 mmol/L (21.0-32.0); Chloride 108 mmol/L (98-107); Estimated GFR (African America >60 (>=60 mL/min/1.73m^2); Estimated GFR (Non-African Ame >60 (>=60 mL/min/1.73m^2); Globulin 3.0 g/dL; Glucose 92 mg/dL (74-106); Potassium 3.9 mmol/L (3.5-5.1); Sodium 144 mmol/L (136-145); Total Protein 6.1 g/dL (6.4-8.2)
[2025-07-25 09:47] LABS: INR 1.07; Prothrombin Time 11.2 sec (9.0-11.6)
[2025-07-25 09:48] LABS: Magnesium 1.5 mg/dL (1.8-2.4)
[2025-07-25 09:51] LABS: NT Pro B Type Natriuretic Pept 1714.0 pg/mL (<=900.0)
[2025-07-25] MEDS: NITROGLYCERIN 0.4 MG BOTTLE SL (10:29)
[2025-07-25] MEDS: FUROSEMIDE 40 MG/4 ML VIAL IVP ×2 (10:29→17:09)
[2025-07-25] MEDS: MAGNESIUM SULFATE IN WATER 2 GM/50 ML PREMIX IV (10:30)
--- NOTE | 2025-07-25 11:15 | CA_ITS ---
Patient Name: JESUS WOLF MR#: [id number] : 1955 Exam Date: 07/25/2025 Ordering Doctor: JORY ERWIN ECHOCARDIOGRAM REPORT PROCEDURE: CA ECHO DOPPLER COMPLETE INDICATIONS: CHF exacerbation, Atrial fibrillation - ablation, hypertension COMPARISON: None. DESCRIPTION: COMPLETE ECHOCARDIOGRAM Real-time transthoracic echocardiography with 2D, M-mode, spectral and color flow Doppler performed. QUALITY: Technical quality was good. LEFT VENTRICLE: Mild dilatation. Severe concentric left ventricular hypertrophy. Normal systolic function. Estimated LVEF is 60 to 65%. LV EF: Normal left ventricular ejection fraction, (>55%). DIASTOLIC: Grade III diastolic dysfunction. ATRIAL SEPTUM: Not well visualized. LEFT ATRIUM: Moderate dilatation. RIGHT ATRIUM: Moderate dilatation. RIGHT VENTRICLE: Normal chamber size. Normal right ventricular systolic function. TRICUSPID VALVE: Normal mobility and thickness. No stenosis with trivial regurgitation. Doppler studies reveal mildly (35-45) elevated right sided pressures. RVSP 40 mmHg MITRAL VALVE: Normal mobility and thickness. No evidence of mitral valve stenosis. Moderate mitral annular calcification. Mild to moderate mitral regurgitation. AORTIC VALVE: Mildly calcified aortic valve. Mildly diminished mobility. No evidence of aortic valve stenosis. Mild to moderate aortic regurgitation. AORTIC ROOT: Mildly dilated, measuring 4.2 cm. Ascending aorta is moderately dilated (4.6 cm). PULMONIC VALVE: Not well visualized. No stenosis. No regurgitation. PERICARDIUM: No evidence of pericardial effusion. IVC: IVC is normal in size, does not completely collapse. PLEURA: CONCLUSION: 1. Severe concentric left ventricular hypertrophy with normal systolic function. Estimated LVEF is 60 to 65%. 2. Normal right ventricular size and systolic function. 3. Moderate biatrial dilatation. 4. Grade 3 diastolic dysfunction. 5. Mild to moderate mitral and aortic regurgitation. 6. Mildly elevated right-sided pressures. RVSP is 40 mmHg. 7. Moderately dilated ascending aorta measuring 4.6 cm. Adult Echocardiography Procedure Report Left Ventricle LVEDD (3.7 - 5.6 cm): 5.41 cm LVESD (2.2 - 4.0 cm): 4.27 cm LVIVS thickness (0.6 - 1.2 cm): 1.87 cm LVPW thickness (0.5 - 1.0 cm): 1.61 cm e': 0.10 m/s E - e': 14.36 LVOT Max Gradient: 4.07 mm[Hg] LVOT Area (cm2): 1.01 m/s Peak Velocity (LVOT): 1.01 m/s Mean Velocity (LVOT): 0.69 m/s LVOT Diameter 2.93 cm Left Ventricular Ejection Fraction: 60-65 % Left Atrium LA Volume Index (2D A2C): 42.72 ml/m2 Mitral Valve MV E to A Ratio: 2.76 Mitral Valve A-Wave Peak Velocity: 0.54 m/s Mitral Valve E-Wave Peak Velocity: 1.48 m/s Right Ventricle Aorta AO Root Diam: 4.17 cm Ascending Ao Diam: 4.56 cm Aortic Valve AoV Area (Peak Nav): 4.30 cm2, 4.30 cm2 AoV Area (VTI): 5.10 cm2, 5.10 cm2 Peak Velocity(Antegrade Flow): 1.58 m/s Peak Gradient(Antegrade Flow): 9.95 mm[Hg] Mean Velocity(Antegrade Flow): 1.17 m/s Mean Gradient(Antegrade Flow): 6.04 mm[Hg] Velocity Time Integral: 27.80 cm Tricuspid Valve Peak Velocity (Regurgitant Flow): 2.82 m/s Pulmonic Valve Peak Velocity: 0.87 m/s Peak Gradient: 3.01 mm[Hg] Right Atrium Right Atrium Systolic Pressure: 43.87 ml, 43.87 ml Dictated by: Radu Robbins M.D. on 07/25/2025 at 18:39 Approved by: Radu Robbins M.D. on 07/25/2025 at 18:46
--- NOTE | 2025-07-25 11:26 | ED.SOB1 ---
HPI - SOB/Dyspnea General Chief Complaint: Shortness of Breath/Dyspnea Stated Complaint: SOB Time Seen by Provider: 07/25/25 08:43 Source: patient Mode of arrival: walk-in Limitations: no limitations History of Present Illness HPI Narrative: 70 years old female with history of hypertension as well as congestive heart failure presented to the ER with almost 3 days history of shortness of breath, she mentioned that the shortness of breath got worse this morning as well at 1 AM, there was no chest pain at any time but the patient noted some wheezing and she had no history of COPD or any history of smoking or asthma,, the patient denies any chest pain at any time, patient mentioned that she have a history of DVT and she is on Eliquis for that and she also mentioned that she have a recent history of right foot fracture that while she have a walking boot that was in December of this year No other concerns Related Data Home Medications ?Medication ?Instructions ?Recorded ?Confirmed alendronate 70 mg tablet 70 mg PO .weekly 07/27/23 07/25/25 apixaban 5 mg tablet (Eliquis) 5 mg PO Q12H 07/27/23 07/25/25 atorvastatin 40 mg tablet 40 mg PO QDAY 07/27/23 07/25/25 celecoxib 200 mg capsule 200 mg PO Q24H 07/27/23 07/25/25 cholecalciferol (vitamin D3) 50 50 mcg PO DAILY 07/27/23 07/25/25 mcg (2,000 unit) tablet (D3 DOTS) colestipol 1 gram tablet 2 g PO BID 07/27/23 07/25/25 ferrous sulfate 325 mg (65 mg 325 mg PO QDAY 07/27/23 07/25/25 iron) tablet (FeroSul) furosemide 20 mg tablet 20 mg PO QDAY 07/27/23 07/25/25 hydroxychloroquine 200 mg tablet 200 mg PO BID 07/27/23 07/25/25 metoprolol succinate 50 mg 200 mg PO DAILY 07/27/23 07/25/25 tablet,extended release 24 hr pantoprazole 40 mg tablet,delayed 40 mg PO Q12H 07/27/23 07/25/25 release spironolactone 50 mg tablet 50 mg PO DAILY 07/27/23 07/25/25 venlafaxine 150 mg 150 mg PO DAILY 07/27/23 07/25/25 capsule,extended release 24 hr (Effexor XR) Bacillus coagulans 500 million 1 tab PO DAILY 07/25/25 07/25/25 cell-inulin 1.25 gram chewable tablet (Align Dualbiotic) amoxicillin 500 mg capsule 500 mg PO Q12H 07/25/25 07/25/25 metoprolol tartrate 25 mg tablet 25 mg PO DAILY 07/25/25 07/25/25 Allergies Allergy/AdvReac Type Severity Reaction Status Date / Time Iodinated Contrast Media Allergy Unknown Unknown Verified 07/25/25 09:23 codeine AdvReac Intermediate Unknown Verified 07/25/25 09:23 diphtheria,pertussis AdvReac Intermediate Unknown Verified 07/25/25 09:23 (acellular),te (From Boostrix Tdap) prochlorperazine (From AdvReac Intermediate ubknown Verified 07/25/25 09:23 Compazine) Sulfa (Sulfonamide AdvReac Intermediate Unknown Verified 07/25/25 09:23 Antibiotics) Review of Systems ROS Status of ROS 10 or more systems reviewed and unremarkable except as noted in history and below [facility] Social History Smoking status: Never smoker Little interest or pleasure in doing things: not at all Feeling down, depressed, or hopeless: not at all Exam Narrative Exam Narrative: Nurses notes and vital signs reviewed and patient is not hypoxic. General: Well-appearing and in no apparent distress. Skin: Warm, dry, no pallor noted. No rash. Head: Normocephalic, atraumatic. Neck: Supple, non-tender. Cardiovascular: Regular Rate and Rhythm without murmur, gallop or rub. Respiratory: No accessory muscle use or respiratory distress. But the patient get tachypneic when talking Lungs bilateral expiratory wheezes and crackles heard in both lung rivas mostly in the bases Back: No midline thoracic or lumbar vertebral tenderness. No CVA tenderness Musculoskeletal: normal ROM, no calf or popliteal tenderness, healing wound on the medial aspect of the right ankle, GI: Abdomen is soft, non-distended. Normal bowel sounds. No masses appreciated. No tenderness to palpation. No rebound, guarding, or rigidity noted. Neurological: A&O x4. No cranial nerve dysfunction observed. No truncal ataxia. Moves all extremities. Sensation intact. Psychiatric: Cooperative and interactive. Normal mood and affect. Constitutional Vital Signs, click to edit/add: Last Vital Signs Temp 97.6 F 07/25/25 08:38 Resp 23 H 07/25/25 08:38 BP 155/108 H 07/25/25 10:29 Pulse Ox 97 07/25/25 09:16 O2 Del Method Room Air 07/25/25 09:16 Course Vital Signs Vital signs: Vital Signs Temperature 97.6 F 07/25/25 08:38 Respiratory Rate 23 H 07/25/25 08:38 Blood Pressure 171/113 H 07/25/25 08:38 Pulse Oximetry 96 07/25/25 08:38 Oxygen Delivery Method Room Air 07/25/25 08:38 Temperature 97.6 F 07/25/25 08:38 Respiratory Rate 23 H 07/25/25 08:38 Blood Pressure 155/108 H 07/25/25 10:29 Pulse Oximetry 97 07/25/25 09:16 Oxygen Delivery Method Room Air 07/25/25 09:16 MDM - SOB/Dyspnea MDM Narrative Medical decision making narrative: The patient EKG showing sinus rhythm with heart rate of [address] elevation elevation There is some prolongation of QTc at 469 Patient CBC shows no leukocytosis chemistry showing some hypomagnesia for that the patient received 2 g of magnesium IV The patient chest x-ray shows a picture of CHF exacerbation it is not known with the last echo of the patient showed that she have her last echo done in [facility] I did try reaching Dr. Amin from cardiology service in [facility] but he was not in the office The patient had an elevated BNP at 1700 and troponin was not elevated and it was repeated twice The patient was started on Lasix 40 mg IV and nitro was given initially to help with the blood pressure control but the blood pressure was after 9-1 55 systolic The patient had her case discussed with Dr. Castro and he agreed with above-mentioned plan Lab Data Labs: Lab Results 07/25/25 07/25/25 07/25/25 Range/Units 09:10 09:12 10:22 WBC 7.5 (4.0-11.0) 10^3/uL RBC 3.99 L (4.20-5.40) 10^6/uL Hgb 13.1 (12.0-16.0) g/dL Hct 39.0 (36.0-48.0) % MCV 97.7 (81.0-99.0) fL MCH 32.8 (26.7-34.0) pg MCHC 33.6 (29.9-35.2) g/dL RDW 13.8 (11.0-15.0) % Plt Count 194 (150-450) 10^3/uL MPV 10.3 (9.5-13.5) fL Neut % (Auto) 77.6 H (43.0-75.0) % Lymph % (Auto) 9.3 L (20.5-60.0) % [place] % (Auto) 10.7 (1.7-12.0) % Eos % (Auto) 1.7 (0.9-7.0) % Baso % (Auto) 0.4 (0.2-2.0) % Neut # (Auto) 5.8 (1.4-6.5) 10^3/uL Lymph # (Auto) 0.7 L (1.2-3.8) 10^3/uL [place] # (Auto) 0.8 (0.3-0.8) 10^3/uL Eos # (Auto) 0.1 (0.0-0.7) 10^3/uL Baso # (Auto) 0.0 (0.0-0.1) 10^3/uL Abs Immat Gran (auto) 0.02 (0.00-0.03) 10^3/uL Imm/Tot Granulo (auto) 0.3 (0.0-0.5) % PT 11.2 (9.0-11.6) sec INR 1.07 D-Dimer 0.42 (<=0.59) mg/L FEU Sodium 144 (136-145) mmol/L Potassium 3.9 (3.5-5.1) mmol/L Chloride 108 H (98-107) mmol/L Carbon Dioxide 28.1 (21.0-32.0) mmol/L Anion Gap 11.8 BUN 13.0 (7.0-18.0) mg/dL Creatinine 0.83 (0.55-1.02) mg/dL Est GFR ( Amer) >60 (>=60 mL/min/1.73m^2) Est GFR (Non-Af Amer) >60 (>=60 mL/min/1.73m^2) BUN/Creatinine Ratio 15.7 Glucose 92 (74-106) mg/dL Calcium 8.7 (8.5-10.1) mg/dL Magnesium 1.5 L (1.8-2.4) mg/dL Total Bilirubin 1.0 (0.2-1.0) mg/dL AST 17 (15-37) U/L ALT 36 (14-59) U/L Alkaline Phosphatase 117 H (46-116) U/L Troponin I High Sens 11.8 11.9 (4.0-51.3) pg/mL NT-Pro-B Natriuret Pep 1714.0 H* (<=900.0) pg/mL Total Protein 6.1 L (6.4-8.2) g/dL Albumin 3.1 L (3.4-5.0) g/dL Globulin 3.0 g/dL Albumin/Globulin Ratio 1.0 Influenza Type A Ag Negative Influenza Type B Ag Negative SARS-CoV-2 Ag (CV2AG) Negative (NEGATIVE) Discharge Plan Discharge Chief Complaint: Shortness of Breath/Dyspnea Clinical Impression: CHF exacerbation, Hypomagnesemia, Hypertension, uncontrolled Patient Disposition: Admitted As Inpatient Time of Disposition Decision: 11:28
[2025-07-25] MEDS: ACETAMINOPHEN 325 MG TABLET 650 MG PO (11:58)
--- OUTSIDE RECORDS SUMMARY | 2025-07-25 12:39 | XMS_ITS | CCD ---
Author Organization [facility] Care Team Providers Care Hr Payroll Coordinator Name Role Phone YURIY CONWAY Attending Unavailable FURLONG, WOJCIECH Primary Care Unavailable YURIY CONWAY Attending Unavailable FURLONG, WOJCIECH Primary Care Unavailable Furlong, Wojciech Francisco Javier Primary Care Provider Furlong DO, Wojciech Francisco Javier Primary Care Provider Furcynthiang, DO Wojciech Primary Care Provider [phone] MD Chapincito Barraza Emergency Provider [phone] MD Hussain Cat Admit Provider MD Hussain Cat Attending Provider DO Rachelle Frazier Other Provider DO Gaetano Junior Emergency Provider [phone] Furlong DO, Wojciech Francisco Javier Primary Care Provider Furlong DO, Wojciech Francisco Javier Primary Care Provider Furlong DO, Wojciech Francisco Javier Primary Care Provider Furlong, Wojciech G Unavailable Unavailable Unavailable Sarika, Dr. Yan Attending Unavailable Qkzazw2j, Dr. Yan Referring Unavailable Furlong, Owjciech Francisco Javier Primary Care Unavailab le Bifuyy7e, Dr. Yan Attending Unavailable Apklcu6w, Dr. Yan Referring Unavailable Furlong, Wojciech Francisco Javier Primary Care Unavailab le Jbvlfk8c, Dr. Yan Attending Unavailable Iksbjm1p, Dr. Yan Referring Unavailable Furlong, Wojciech Francisco [...] Furcynthiang, DO Jeffrey Primary Care Provider [phone] MD Yuriy Conway Attending Provider MD Yuriy Conway Referring Provider [phone] MaxWojciech mckeon DO Primary Care Provider AUGUST YOUNG Attending Unavailable KIMMY CERDA Attending Unavailable WOJCIECH TREVIÑO Referring Unavailable AUGUST YOUNG Attending Unavailable Wojciech Treviño MD Primary Care Provider [phone] Wojciech Treviño DO Primary Care Provider Luis [...] le CONWAYYURIY MENDEZ Referring Unavailable FURLONG, WOJCIECH FARNCISCO JAVIER Primary Care Unavailab le Kuns [facility] Primary Care Unavailable Yuriy Conway Admitting Unavailable Yuriy Conway Attending Unavailable Yuriy Conway Referring Unavailable Yuriy Conway Admitting Unavailable ConwayYuriy Attending Unavailable Furlong, Wojciech Primary Care Unavailable Yuriy Conway Attending Unavailable ConwayYuriy Admitting Unavailable Furlong, Wojciech Primary Care Unavailable ConwayYuriy Attending Unavailable ConwayYuriy Admitting Unavailable Furlong, Wojciech Primary Care Unavailable Furlong DOWojciech Primary Care Provider Yuriy Conway MD Unavailable FURCYNTHIANG, WOJCIECH Mcghee Referring Unavailable KUNChristiano [facility] Primary Care Unavailable FURLONG, WOJCIECH Mcghee Attending Unavailable FURLONG, WOJCIECH Mcghee Referring Unavailable FURLONG, WOJCIECH Mcghee Primary Care Unavailable FURLONG, WOJCIECH Mcghee Attending Unavailable FURLONG, WOJCIECH Mcghee Referring Unavailable FURLONG, WOJCIECH Mcghee Primary Care Unavailable FURLONG, WOJCIECH Mcghee Attending Unavailable FURLONG, WOJCIECH Mcghee Referring Unavailable FURLONG, WOJCIECH cMghee Primary Care Unavailable FURLONG, WOJCIECH Taz Attending Unavailable FURLONG, WJOCIECH Taz Referring Unavailable FURLONG, WOJCIECH Taz Primary [...] Unavailab le ISABELAIDEN JACKSON Referring Unavailable FURLONG, WOCJIECH FRANCISCO JAVIER Primary Care Unavailab le FURLONG, [...] Primary Care Unavailab BEVERLY Delgadillo Referring Unavailable [facility] Primary [facility] Unavailab BEVERLY Delgadillo Attending Unavailable NADEGE MURPHY Attending Unavailable NADEGE MURPHY Referring Unavailable LUIS ALFREDO, WOJCIECH MCINTYRE Primary Care Unavailab RADU Salazar Referring Unavailable KAMILA, WOJCIECH MCINTYRE [facility] Unavailab le SELF Referring Unavailable LUIS ALFREDONG, WOJCIECH MCINTYRE Primary Care Unavailab le Allergies Allergy ClassificationReported Allergen(s)Allergy TypeDate of OnsetReaction(s) FacilityContrast Media (1 source)Contrast mediaSubstance Jbpfcbv18-09-7838Cpmpq: See CommentsOhiohealth Shelby Hospitaldofetilide (1 source)dofetilideDrug Skdlvqb60-96-6328Zuwln: See Comments, Anaphylaxis [facility] HospitalIodine (and Iodine containting drugs) (1 source)IodineDrug Ojeqosv25-73-3073Pyptw: See CommentsOhiohealth Shelby HospitalOpioid Agonists (1 source)CodeineDrug Qudjwjl52-28-1794Eauge: See [facility] Prochlorperazine (1 source)ProchlorperazineDrug Cctrfkz71-66-2322Ghjsf: See CommentsTriHealth McCullough-Hyde Memorial Hospitalulfonamides (antibiotic) (1 source)Sulfonamides (Antibiotic)Drug Cvepxxg92-93-2982WxwayyqiKyvoxepta Clinic (20 sources)Codeine; Translations: [codeine]Drug Mdstcyo83-58-9026Nlntb: See Comments, Unknown, Headache, OtherOhiohealth Shelby Hospital (20 sources)Contrast media; Translations: [CONTRAST DYE]Drug Vwrrlmm22-85-4207 Other: See Comments, UnknownOhiohealth Shelby Hospital (20 sources)dofetilide; Translations: [Tikosyn]Drug Rbqggeq48-62-3891Wsism: See Comments, Anaphylaxis, Unknown, GI Disturbance, Palpitations, GI Upset, GI intolerance, OtherOhiohealth Shelby Hospital (20 sources)Prochlorperazine; Translations: [PROCHLORPERAZINE EDISYLATE]Drug Fhvoyfa30-18-7262Fdhsc: See CommentsOhiohealth Shelby Hospital (20 sources)Sulfonamides (Antibiotic); Translations: [SULFA (SULFONAMIDE ANTIBIOTICS)]Drug Vstplxijado74-31-2615Uiejxxve, Swelling, Nausea/vomiting, Unknown, GI intolerance, AnaphylaxisOhiohealth Shelby Hospital (16 sources)Tetanus Vaccines And Toxoid; Translations: [TETANUS VACCINES AND TOXOID]Drug Gdielskyott41-39-4577Xmdbc: See CommentsOhiohealth Shelby Hospital (20 sources)EPINEPHrine; Translations: [epinephrine]Drug Fnzfykq86-66-3730 Unknown, PalpSouthwest General Health Center (20 sources)Prochlorperazine; Translations: [PROCHLORPERAZINE]Drug Allergy 19-14-2982HqgjdavMorrow County Hospital (9 sources)tetanus and diphtheria toxoids; Translations: [tetanus and diphtheria toxoids]Allergy to fqxukaark73-63-1205Enylhrm [facility] (17 sources)Iodinated Contrast Media; Translations: [IODINATED CONTRAST MEDIA] Propensity to adverse ilkiolfft40-52-6303FcyszyqdBfkcdulupCity Hospital (20 sources)Tetanus Vaccines And ToxoidDrug Kdnrvbctmbu07-21-8492Atejb: See Comments, Unknown, [facility] (8 sources)Contrast mediaAllergy to substance (finding)[place] [address] DO Work Phone: (8 sources)diphtheria toxoid vaccine, inactivated / tetanus toxoid vaccine, inactivated; Translations: [Tetanus-Diphtheria Toxoids Td SUSP]Drug AllergyOther [place] [address] DO Work Phone: (8 sources)Prochlorperazine; Translations: [Compazine]Drug AllergyCarol [place] [address] DO Work Phone: (8 sources)Sulfamethoxazole; Translations: [sulfa]Drug AllergyCarol [place] [address] DO Work Phone: (8 sources)Sulfonamides (Antibiotic); Translations: [Sulfa Antibiotics]Allergy to drug (finding)Swelling, VomitingCarol [place] [address] DO Work Phone: (8 sources)Tdap; Translations: [Tdap]Allergy to drug (finding)[place] [address] DO Work Phone: (1 source)AllopurinolDrug AllergyThe [facility] (1 source)CodeineDrug AllergyThe [facility] (1 source)dofetilideDrug AllergyThe [facility] (1 source)Iodine (And Iodine Containting Drugs)Drug allergy (disorder)[facility] (1 source)ProchlorperazineDrug AllergyThe [facility] (20 sources)Iodine; Translations: [IODINE]Drug Gaofzhl12-07-9794Mopozbw, Other: See CommentsOhiohealth Shelby Hospital (20 sources)acellular pertussis vaccine, inactivated / diphtheria toxoid vaccine, inactivated / tetanus toxoid vaccine, inactivated; Translations: [DIPHTH,PERTUS(ACELL),TETANUS]Drug Rnahwnv81-27-6906Mcgejgp, Other (See Comments)[facility] (7 sources)dofetilideDrug Xioxrid12-09-7330Hhxlzgyevpl, GI intolerance, Other, Palpitations, UnknownNOMS Healthcare (7 sources)Diphth-Acell Pertussis-TetanusDrug Bmxiiss32-28-7796NblbuwzVEEI Healthcare (7 sources)OtherPropensity to adverse -58-9796LccyqyhWJHE Healthcare (20 sources)diphtheria toxoid vaccine, inactivated / tetanus toxoid vaccine, inactivated; Translations: [TETANUS AND DIPHTHER. TOX (PF)]Drug Allergy 18-08-5936OzbrPwtLezfwgAshtabula County Medical Center (20 sources)Diphtheria,Pertussis(Acell),Tetanus Pedi Vaccine; Translations: [DIPHTHERIA,PERTUSSIS(ACELL),TETANUS PEDI VACCINE]Propensity to adverse reactions to hews42-61-8769Pnjio (See Comments)[facility] (1 source)CodeineDrug Xdmfjiz81-59-0125SagivnaglTrumbull Regional Medical Center Repository (1 source)dofetilideDrug Negpsxf00-49-4644ZniwdqkmrTrumbull Regional Medical Center Repository (1 source)Sulfonamides (Antibiotic)Drug allergy (disorder)06-80-3574RixpqgvouTrumbull Regional Medical Center Repository Medications Current Medications MedicationDrug Class(es)DatesSig (Normalized)Sig (Original)[id number] 200 actuat albuterol 0.09 mg/actuat metered dose inhaler (7 sources)beta2-Adrenergic AgonistStart: 07-87-8348bwso 2 puff(s) by mouth four times dailyalbuterol HFA 90 mcg/act inhaler inhale 2 puffs by mouth and INTO THE LUNGS four times a day 10/30/2022 Activealendronic acid 70 mg oral tablet (20 sources)BisphosphonateStart: 05-12-2022 End: 52-07-4421kcabkbymfsi (FOSAMAX) 70 mg tablet 05/12/2022 ActiveStart: 04-03-2019 End: 26-58-9418ujxu 1 tablet by mouth every weekAlendronate 70 [...] by mouth once a week Active End: 73-32-4827reys 1 tablet by mouth in the morningalendronate-vitamin D3 (FOSAMAX PLUS D) 70 mg- 2,800 unit per tablet Take 1 tablet by mouth every 7 days. In a.m. with water on empty stomach, nothing else by mouth and remain upright for 30min 11/28/2024 Discontinued (Duplicate order)amiodarone hydrochloride 200 mg oral tablet (20 sources)AntiarrhythmicStart: 12-07-2024 End: 30-90-0442fxka 1.5 tablets by mouth once dailyamiodarone (Pacerone) 200 mg tablet Indications: Atypical atrial flutter Take 1.5 tablets (300 mg) by mouth once daily. 135 tablet 3 12/07/2024 12/07/2025 ActiveStart: 07-08-2024 End: 90-79-5597zgis 2 tablets by mouth once dailyamiodarone (Pacerone) 200 mg tablet Indications: Atypical atrial flutter Take 2 tablets by mouth once daily 180 tablet 10/27/2024 12/07/2024 Discontinued (Reorder)Start: 11-28-2023 amiodarone (PACERONE) 200 mg tablet Take 1 tablet (200 mg total) by mouth. 05/07/2024 ActiveStart: 53-24-3094wyeimblpba (PACERONE) 200 mg tablet Take 300 mg by mouth once daily. Patient reports 300 mg by mouth daily 11/28/2023 Active Start: 11-26-2023 End: 44-81-3020ihnf 1 tablet by mouth twice dailyAmiodarone 200 mg tablet Discontinued 200 MG PO Twice daily 60 November 25, 2023 11:00pm 2024 8:19amStart: 11-24-2023 End: 68-30-5068zeft 1 tablet by mouth once dailyAmiodarone 200 mg tablet Discontinued 200 MG PO Daily November 24, 2023 11:00pm November 26, 2023 12:46pm Start: 11-19-2023 End: 02-48-9907svfeojgkeo (Pacerone) 400 mg tablet Indications: Atypical atrial flutter (CMS/HCC) Take 1 tablet (400 mg) by mouth 2 times a day for 5 days. Do not start before November 19, 2023. 10 tablet 0 11/19/2023 11/24/2023 ActiveStart: 06-23-2019 End: 87-75-1711qkfy 1 tablet by mouth twice dailyAmiodarone 200 mg tablet Discontinued 200 MG PO Twice daily September 18, 2019 5:26pm February 07, 2022 4:11pmStart: 06-02-2019 End: 65-07-7781cbhq 1 tablet by mouth once dailyAmiodarone 200 mg tablet Discontinued 200 MG PO Daily 30 June 01, 2019 11:00pm June 23, 2019 1:24pmStart: 05-12-2019 End: 05-30-3967zqfx 1 tablet by mouth twice daily at mealtimeAmiodarone 200 mg Tablet Discontinued 200 MG PO Twice daily with meals 60 May 11, 2019 11:00pm June 02, 2019 2:08pmStart: 04-03-2019 End: 20-94-6737bimo 1 tablet by mouth once dailyAmiodarone 200 mg Tablet Discontinued 200 MG PO Daily April 02, 2019 11:00pm May 12, 2019 1:58pmamoxicillin 875 mg oral tablet (20 sources)Penicillin-class AntibacterialStart: 07-18-2024 End: 43-92-7318pgcr 1 tablet by mouth in the morning, then take 1 tablet by mouth at bedtimeamoxicillin (AMOXIL) 875 mg tablet Take 1 tablet (875 mg total) by mouth in the morning and 1 tablet (875 mg total) before bedtime. Do all this for 7 days. 14 tablet 07/18/2024 07/25/2024 ActiveStart: 06-11-2023 End: 51-13-7552nnlbsyuvlpv (AMOXIL) 500 mg capsule Take 4 tablets one hour prior to dental procedure 4 capsule 3 06/11/2023 09/30/2024 Discontinued (Discontinued by Patient)Start: 02-11-2021 End: 09-13-6764Veoovpawyux 500 mg tablet Take 4 tablets by [...] tablet (20 sources)Factor Xa InhibitorStart: 05-08-2019 End: 33-52-3951sljy 1 tablet by mouth in the morning, [...] tablet (20 sources)HMG-CoA Reductase InhibitorStart: 04-03-2019 End: 09-78-5593kcox 1 tablet by mouth once dailyatorvastatin (LIPITOR) 40 mg tablet Indications: Mixed hyperlipidemia Take 1 tablet by mouth once daily. 90 tablet 3 09/13/2021 ActiveComment on above:Take 1 tablet by mouth once daily. azithromycin 250 mg oral tablet (1 source)Macrolide AntimicrobialStart: 09-22-2023 End: 06-53-9019axdq 1 tablet by mouth in the morning, [...] mg injection (20 sources)B Lymphocyte Stimulator-specific InhibitorStart: 25-81-6665gcjr 120 mg intravenously every three monthsBelimumab 120 mg Recon Soln Active 10 mg/kg IV As Directed September 18, 2019 12:00am EVERY THREE MONTHSStart: 09-18-2019 take 1 mg intravenously every three monthsBelimumab Active 10 mg/kg IV As Directed September 18, 2019 1:00am EVERY THREE MONTHSStart: 56-66-9123oguucygtw (Benlysta) 120 mg recon soln IV injection Infuse into a venous catheter every 8 (eight) weeks. 04/25/2019 ActiveStart: 04-03-2019 End: 70-72-0251teui 120 mg intravenously every three monthsBelimumab 120 mg Recon Soln Discontinued 10 mg/kg IV EVERY 3 MONTHS April 02, 2019 11:00pm June 19, 2019 11:46amStart: 04-03-2019 End: 48-36-2210jann 1 mg intravenously every three monthsBelimumab Discontinued 10 mg/kg IV EVERY 3 MONTHS April 03, 2019 12:00am June 19, 2019 12:46pm Start: 84-63-0281ckukkgbjq (BENLYSTA) 80 mg/mL recon soln Infuse 1.5 [...] infantis 4 mg oral capsule (20 sources)Start: 07-69-3492tpvx 1 capsule by mouth once dailyBifidobacterium Infantis [...] hydrochloride 5 mg oral tablet (20 sources)Start: 66-09-4789wetw 1 tablet by mouth twice dailybusPIRone (Buspar) 5 mg tablet Take 1 tablet (5 mg) by mouth 2 times a day. 05/01/2024 ActiveStart: 03-30-2024 End: 10-53-1929tfxn 1 tablet by mouth three times dailybusPIRone (BUSPAR) 5 mg tablet TAKE 1 TABLET BY MOUTH THREE TIMES DAILY 90 tablet 5 03/22/2025 Active Start: 05-15-2020 End: 86-39-3330rqcn 1 tablet by mouth twice dailybusPIRone (BUSPAR) 10 mg tablet Take 10 mg by mouth two times a day. 05/15/2020 ActiveStart: 97-24-4293ekeu 1 tablet by mouth once daily at bedtimeBuspirone 10 mg Tablet Active 10 MG PO Daily at bedtime February 06, 2022 11:00pmComment on above:Take 10 mg by mouth daily at bedtime. calcium carbonate 1250 mg / cholecalciferol 200 unt oral tablet (20 sources)Vitamin DStart: 25-08-4163fpiz 1 tablet by mouth in the morning, then take 1 tablet by mouth once daily, then take 1 tablet by mouth once at bedtimecalcium carbonate-vitamin D3 (OSCAL 500 + D) 500 mg(1,250mg) -200 units per tablet Take 1 tablet bymouth in the morning and 1 tablet at noon and 1 tablet before bedtime. 08/27/2022 ActiveStart: 73-17-7759buem 1 tablet by mouth three times wdeeqotkxrxp-qdfdbrtxi-ynpxdbr D3 500 mg-5 mcg (200 unit) per tablet Take 1 tablet by mouth three times daily. 08/27/2022 ActiveStart: 46-72-9248oaas 1 tablet by mouth once in the morning, then take 1 tablet by mouth once, then take 1 tablet bymouth in the eveningCalcium Carbonate-Vitamin D (Oyster Shell Calcium/D) 500-5 MG-MCG tablet Take 1 tablet by mouth in the morning and 1 tablet at noon and 1 tablet in the evening. 08/27/2022 ActiveStart: 09-18-2019 End: 04-21-3546oybn 2 tablets by mouth once dailyCalcium Carbonate-Vitamin D3 (Calcium 600 + D(3)) 600-125 mg-unit Tablet Discontinued 2 TAB PO Daily September 18, 2019 4:21pm February 07, 2022 5:11pmStart: 04-03-2019 End: 75-21-5159zinr 1 tablet by mouth once dailyCalcium Carbonate-Vitamin D3 (Calcium 600 + D(3)) 600 mg calcium- 200 unit Capsule Discontinued 1 TAB PO Daily April 02, 2019 11:00pm June 19, 2019 11:46amComment on above:Take 1 tablet by mouth three times daily.celecoxib 200 mg oral capsule (20 sources)Nonsteroidal Anti-inflammatory DrugStart: 09-16-2024 End: 21-80-8492eqqx 1 capsule by mouth every twelve hours as needed for pain celecoxib (CeleBREX) 200 mg capsule Take 1 capsule (200 mg total) by mouth every 12 (twelve) hours as needed for pain. TAKE 1 CAPSULE BY MOUTH IN THE MORNING AND 1 CAPSULE BEFORE BEDTIME 180 capsule 05/02/2025 ActiveStart: 05-28-2023 End: 09-51-4638bere 1 capsule by mouth in the morning, [...] 180 capsule 1 03/21/2024 ActiveStart: 04-25-2019 End: 69-36-0028fzkw 1 capsule by mouth twice dailycelecoxib (CeleBREX) 200 mg capsule Take 1 capsule (200 mg) by mouth 2 times a day. 04/25/2019 ActiveStart: 04-03-2019 End: 70-92-3226rqko 1 capsule by mouth once dailyCelecoxib 200 mg Capsule Discontinued 200 MG PO Daily April 02, 2019 11:00pm May 12, 2019 1:58pmComment on above:Take 200 mg by mouth twice daily.Take 200 mg by mouth once daily.cholecalciferol 0.05 mg oral capsule (20 sources)Vitamin DStart: 64-59-9504yaud 1 capsule by mouth once dailyVitamin D3 50 MCG (2000 UT) Oral Capsule TAKE 1 CAPSULE Daily Quantity: 0 Refills: 0 Ordered: 25-Apr-2019 DO Start : 25-Apr-2019 ActiveStart: 42-75-0678lmnd 3 capsules by mouth once dailycholecalciferol (Vitamin D-3) 50 mcg (2,000 unit) capsule Take 3 capsules (150 mcg) by mouth once daily. 04/25/2019 ActiveStart: 74-23-0056hfak 1 capsule by mouth once dailycholecalciferol (Vitamin D-3) 50 mcg (2,000 unit) capsule Take 1 capsule (50 mcg) by mouth once daily. 0 04/25/2019 ActiveStart: 74-74-6915axkq 1 tablet by mouth once dailyCholecalciferol (Vitamin D3) 2,000 unit Tablet Active 2000 UNIT PO Daily April 02, 2019 11:00pm Cholecalciferol (Vitamin D3) 1000 units capsule 1 (one) time each day at the same time Active End: 96-03-2461tfftjqwwiitqhsp, vitamin D3, 2,000 units capsule Take by mouth. 0 09/01/2023 Discontinued (Therapy completed)Comment on above:Take by mouth once daily.clopidogrel 75 mg oral tablet (10 sources)P2Y12 Platelet InhibitorStart: 02-15-2024 End: 45-64-1225uhxr 1 tablet by mouth in the morningclopidogreL (PLAVIX) 75 mg tablet Take 1 tablet (75 mg total) by mouth in the morning. 03/29/2024 Activecolestipol hydrochloride 1000 mg oral tablet (20 sources)Bile Acid SequestrantStart: 12-22-2023 End: 91-82-6521cqpv 3 tablets by mouth twice dailycolestipol (COLESTID) 1 gram tablet Indications: Diarrhea, unspecified type TAKE 3 TABLETS BY MOUTHTWICE DAILY 360 tablet 3 11/15/2024 ActiveStart: 64-38-5144Pabugdljgb (Colestid) 1 gram tablet Active 2 GM PO Twice daily September 18, 2023 12:00amStart: 12-30-2021 End: 41-14-1736dght 2 tablets by mouth at bedtimecolestipoL (COLESTID) 1 g tablet Take 2 tablets (2 g total) by mouth in the morning and 2 tablets (2 g total) before bedtime. 01/13/2023 ActiveStart: 08-21-2021 End: 02-38-6330nkil 2 tablets by mouth twice dailycolestipol (COLESTID) 1 gram tablet Indications: Diarrhea, unspecified type Take 2 tablets by mouthtwice daily. 120 tablet 3 08/21/2021 10/16/2021 DiscontinuedComment on above:Take 2 tablets by mouth twice daily.TAKE 2 TABLETS BY MOUTH TWICE A DAY12 hr dextromethorphan hydrobromide 30 mg / guaiFENesin 600 mg extended release oral tablet (1 source)Uncompetitive K-bcxgyd-Z-aspartate Receptor Antagonist, Sigma-1 AgonistStart: 09-22-2023 End: 03-44-6779pbac 1 tablet by mouth every hourdextromethorphan-guaiFENesin (MUCINEX DM) 30-600 mg tablet extended release 12 hr Take 1 tablet by mouth every 12 (twelve) hours for 10 days. 20 tablet 0 09/22/2023 10/02/2023 Active diclofenac sodium 0.01 mg/mg topical gel (20 sources)Nonsteroidal Anti-inflammatory DrugStart: 05-18-2024 End: 70-32-9191jldbj 4 g topically four times dailydiclofenac (VOLTAREN ARTHRITIS PAIN) 1 % topical gel Apply 4 g to affected area four times daily. 200 g 5 05/18/2024 08/16/2024 ActiveStart: 02-04-2023 End: 87-78-1135ojnbd 2 g topically four times dailydiclofenac (VOLTAREN) 1 % topical gel Apply 2 g to affected area four times daily. 200 g 2 02/04/2023 05/05/2023 ActiveComment on above:Apply 2 g to affected area four times daily. diphenhydrAMINE hydrochloride 50 mg oral tablet (9 sources)Histamine-1 Receptor AntagonistStart: 36-18-1916fdbmksfkqyGDTYS (Benadryl Allergy) 50 mg tablet Indications: Allergy to iodine Take 1 tablet (50 mg) by mouth as needed at bedtime for itching for up to 1 dose. Take [address] scan 1 tablet 08/08/2024 ActiveStart: 04-07-2024 End: 23-05-7373nlnk 50 mg by mouth once50 mg, oral, Once, On Theresa 04/07/24 at 1200, For 1 dose, Pre-Admission TestingStart: 03-13-2022 End: 31-78-7980agdrdukyrnVWYKZ 50 mg (BENADRYL)Start: 03-13-2022 End: 08-86-8595hkfgayvworCRBBR 50 mg injection (BENADRYL)docusate sodium 100 mg oral capsule (9 sources)Start: 04-04-2025 End: 71-63-9886uuaz 1 capsule by mouth twice dailydocusate sodium (COLACE) 100 mg capsule Take 1 capsule by mouth two times a day. 60 capsule 04/04/2025 05/04/2025 Activedoxycycline hyclate 100 mg oral tablet (9 sources)Tetracycline-class DrugStart: 01-25-2025 End: 53-62-5894mjwp 1 tablet by mouth twice dailydoxycycline (VIBRA-TABS) 100 mg tablet Take 1 tablet by mouth two times a day for 14 days. 28 tablet 01/25/2025 02/08/2025 Activeferrous sulfate 325 mg oral tablet (20 sources)Start: 07-45-5818myky 1 tablet by mouth once dailyFerrous Sulfate 325 mg (65 mg iron) Tablet Active 325 MG PO Daily February 06, 2022 11:00pmStart: 10-23-2020 End: 71-62-2080eyfu 1 tablet by mouth once dailyferrous sulfate (IRON) 325 mg (65 mg iron) tablet Take 1 tablet by mouth once daily. 90 tablet 3 11/30/2024 ActiveComment on above:Take 1 tablet by mouth once daily.furosemide 20 mg oral tablet (20 sources)Loop DiureticStart: 10-05-2019 End: 19-95-1950hyzg 1 tablet by mouth once dailyfurosemide (LASIX) 20 mg tablet Take 1 tablet by mouth once daily 90 tablet 1 01/18/2025 ActiveStart: 10-05-2019 take 2 tablets by mouth once dailyfurosemide (Lasix) 20 mg tablet Take 2 tablets (40 mg) by mouth once daily. 10/05/2019 ActiveStart: 05-55-9973tlso 1 tablet by mouth once dailyFurosemide 40 mg Tablet Active 40 MG PO Daily at 0800 30 September 30, 2019 12:00amStart: 04-09-2019 End: 61-67-5652kmix 1 tablet by mouth once dailyFurosemide 20 mg Tablet Discontinued 20 MG PO Daily at 0800 30 April 08, 2019 11:00pm June 19, 2019 11:46amStart: 04-03-2019 End: 80-25-0516caxv 1 tablet by mouth once dailyFurosemide 40 mg tablet Discontinued 40 MG PO Daily April 02, 2019 11:00pm April 09, 2019 11:17am furosemide (LASIX) 40 mg tablet Take 20 mg by mouth once daily. 0 ActiveComment on above:Take 20 mg by mouth once daily. Take 40 mg by mouth once daily. hydroxychloroquine sulfate 200 mg oral tablet (20 sources)Antimalarial, Antirheumatic AgentStart: 07-25-2016 End: 28-47-3612svjglcwkmdmdbyinyy (PLAQUENIL) 200 mg tablet 07/25/2016 Active Start: 07-25-2016 End: 06-95-5332bphi 1 tablet by mouth once dailyHydroxychloroquine 200 mg tablet Discontinued 200 MG PO Daily 30 November 25, 2023 11:00pm September 19, 2024 8:19amComment on above:take 1 tablet by mouth twice a day take with food or milk NEEDS LABStake 1 tablet by mouth twice a day with foodlevothyroxine sodium 0.05 mg oral tablet (20 sources)l-ThyroxineStart: 09-24-2023 End: 27-52-1676qnok 1 tablet by mouth in the morninglevothyroxine (SYNTHROID, LEVOTHROID) 50 MCG tablet Take 1 tablet (50 mcg total) by mouth in the morning. 90 tablet 05/17/2025 ActiveStart: 09-11-2022 End: 35-24-0966xwer 1 tablet by mouth in the morninglevothyroxine (SYNTHROID, LEVOTHROID) 50 MCG tablet Take 1 tablet (50 mcg total) by mouth in the morning. 30 tablet 1 08/20/2023 ActiveStart: 29-21-3399Uwtwqpktgrnxj 75 mcg tablet Active 50 MCG PO Daily February 06, 2022 11:00pmStart: 92-00-2913uhvh 50 ug by mouth once dailyLevothyroxine Active 50 MCG PO Daily February 07, 2022 12:00amStart: 09-24-2020 End: 19-29-1097keng 1 tablet by mouth once dailylevothyroxine (SYNTHROID) 75 mcg tablet Take 75 mcg by mouth once daily. 09/24/2020 ActiveComment on above:Take 75 mcg by mouth once daily.mesalamine 1200 mg delayed release oral tablet (20 sources)AminosalicylateStart: 04-08-2023 End: 37-97-9489cxbpnhgsmp ([place]) 1,000 mg suppository 1 Suppository by RECTAL route daily at bedtime. 30 Suppository 3 04/08/2023 10/09/2023 Discontinued (Course of therapy completed)Start: 09-22-2021 End: 94-63-1254asce 4 tablets by mouth in the morningmesalamine (LIALDA) 1.2 gram EC tablet Take 4 tablets (4.8 g total) by mouth in the morning. 06/26/2022 ActiveStart: 03-04-2021 End: 24-42-1146pjuu 4 tablets by mouth once dailyMesalamine (LIALDA) 1.2 gram EC tablet Take 4 tablets by mouth once daily. 360 tablet 1 03/04/2021 09/20/2021 DiscontinuedStart: 18-73-2924dskz 2 tablets by mouth twice dailymesalamine (Lialda) 1.2 gram EC tablet Take 2 tablets (2.4 g) by mouth 2 times a day. 12/06/2019 ActiveStart: 69-25-6921Ulgtsqnuul 1.2 GM Oral Tablet Delayed Release takes 4x day Quantity: 0 Refills: 0 Ordered: 06-Dec-2019 DO Start : 06-Dec-2019 ActiveStart: 63-38-3048jffr 1 tablet by mouth four times dailyMesalamine (Lialda) 1.2 gram tablet,delayed release (DR/EC) Active 1.2 GM PO Four times daily June 19, 2019 11:45amComment on above:Take 4 tablets by mouth once daily.take 4 tablets by mouth once daily1 Suppository by RECTAL route daily at bedtime.metoprolol tartrate 25 mg oral tablet (20 sources)beta-Adrenergic BlockerStart: 68-57-5480gxpbwktkgr tartrate (LOPRESSOR) 25 mg tablet 08/05/2024 ActiveStart: 08-05-2024 End: 87-13-9915mlup 1 tablet by mouth once dailymetoprolol succinate ER (TOPROL XL) 200 mg 24 hr tablet Take 200 mg by mouth once daily. 505 ActiveStart: 11-25-2023 End: 48-54-3653Oihhccdoux Succinate 50 mg tablet extended release 24 hr Discontinued 100 MG PO Daily at bedtime November 24, 2023 11:00pm November 26, 2023 12:46pmStart: 11-25-2023 End: 32-01-4048hvgs 100 mg by mouth once daily at bedtimeMetoprolol Succinate Discontinued 100 MG PO Daily at bedtime November 25, 2023 12:00am November 25 1:46pmStart: 38-01-4523wyij 1 tablet by mouth every twenty-four hours in the morning, then take 2 tablets by mouth in the eveningmetoprolol succinate ER (TOPROL XL) 50 mg 24 hr tablet Indications: Chronic diastolic heart failure(HCC) TAKE 1 TABLET BY MOUTH IN THE MORNING AND 2 TABLETS BY MOUTH IN THE EVENING 270 tablet 3 02/09/2023 ActiveStart: 01-28-2022 End: 05-42-6641dkdcgupdks succinate XL (TOPROL XL) 50 mg 24 hr tablet 08/20/2022 ActiveStart: 07-26-2021 End: 38-71-6318ogssdoejqy succinate ER (TOPROL XL) 50 mg 24 hr tablet 50mg in am and 100mg in pm. 270 tablet 1 07/26/2021 01/24/2022 DiscontinuedStart: 39-44-9319Mfjvqtzpvx Succinate 100 mg tablet extended release 24 hr Active 200 MG PO Bedtime September 18, 2019 3:31pmStart: 53-43-7874xjlf 2 tablets by mouth once daily in the morningMetoprolol Succinate 100 mg tablet extended release 24 hr Active 50 MG PO Every morning September 18, 2019 3:31pmStart: 07-82-8012dqmw 50 mg by mouth once daily in the morningMetoprolol Succinate Active 50 MG PO Every morning September 18, 2019 4:31pmStart: 36-76-3532xqif 50 mg by mouth twice dailyMetoprolol Succinate Active 50 MG PO Twice daily September 18, 2019 3:31pmStart: 06-23-2019 End: 95-54-8222Gwvvzwdcha Succinate 100 mg Tablet Extended Release 24 Hr Discontinued 150 MG PO Daily 45 June 23, 2019 12:00am September 18, 2019 3:31pmStart: 06-23-2019 End: 63-61-1928okuo 150 mg by mouth once dailyMetoprolol Succinate Discontinued 150 MG PO Daily 45 June 23, 2019 1:00am September 18, 2019 4:31pmStart: 05-08-2019 End: 36-78-7557Abzknrmlfb Succinate 50 mg tablet extended release 24 hr Discontinued 100 MG PO Every evening May 07, 2019 11:00pm June 19, 2019 11:46amStart: 05-08-2019 End: 28-46-0029nfap 100 mg by mouth once daily in the eveningMetoprolol Succinate Discontinued 100 MG PO Every evening May 08, 2019 12:00am June 19, 2019 12:46pmStart: 04-09-2019 End: 12-43-2954acnw 1 tablet by mouth once dailyMetoprolol Succinate 50 mg tablet extended release 24 hr Discontinued 50 MG PO Daily May 08, 2019 10:52am June 23, 2019 1:24pm End: 21-94-6730qaly 1 tablet by mouth in the morning, then take 2 tablets by mouth in the eveningmetoprolol tartrate (Lopressor) 50 mg tablet Take by mouth. Take 1 tablet in am and 2 tablets in pm. 0 09/17/2023 Discontinued (Therapy completed)Comment on above:50mg in am and 100mg in pm.TAKE 1 TABLET BY MOUTH IN THE MORNING AND 2 TABLETS BY MOUTH IN THE YUHJAONBzhtpgew-Rhg-Ho-Lycopen-Lutein (Centrum Silver) 0.4-300-250 mg-mcg-mcg Tablet (8 sources)Start: 29-17-2432zbuu 1 tablet by mouth once daily Glzqdrit-Ilb-Gj-Lycopen-Lutein (Centrum Silver) 0.4-300-250 mg-mcg-mcg Tablet Active 1 TAB PO DailyFrancisco 2018 5:52pmStart: 79-63-0477yjqo 1 tablet by mouth once qddvrXvbhlccf-Gee-Ak-Lycopen-Lutein (Centrum Silver) 0.4-300-250 mg-mcg-mcg Tablet Active 1 TAB PO DailyFrancisco 2018 12:00amStart: 37-42-1621bchz 1 tablet by mouth once mjcosKamgpdvq-Vkh-Fy-Lycopen-Lutein (Centrum Silver) 0.4-300-250 mg-mcg-mcg Tablet Active 1 TAB PO DailyFrancisco 2018 11:00pmmultivitamin capsule (20 sources)Start: 59-34-9752qqblnlhdkkdb capsule Take by mouth. 02/21/2010 ActiveStart: 36-25-2405dltyzewcdlae capsule Take by mouth. 0 02/21/2010 Active multivitamin with minerals iron-free (Centrum Silver) (15 sources)Start: 18-78-3505mdmg 1 tablet by mouth once dailymultivitamin with minerals iron-free (Centrum Silver) Take 1 tablet by mouth once daily. 04/25/2019ActiveStart: 64-71-4861ooct 1 tablet by mouth once dailymultivitamin with minerals iron-free (Centrum Silver) Take 1 tablet by mouth once daily. 0 04/25/2019 Activemultivitamins w-minerals/lut(CENTRUM SILVER TAB) (20 sources)Start: 12-64-8491loirtvskprsyk w-minerals/lut(CENTRUM SILVER TAB) Take one(1) tablet daily. 0 02/21/2010 SuspendedStart: 89-82-8831vujjyhxcceexx w-minerals/lut(CENTRUM SILVER TAB) Take one(1) tablet daily. 0 02/21/2010 Active Comment on above:Take one(1) tablet daily.mupirocin 0.02 mg/mg topical ointment (20 sources)RNA Synthetase Inhibitor AntibacterialStart: 31-73-2838qucjegosx (BACTROBAN) 2 % ointment Apply to affected area three times a day. 30 g 1 01/18/2025 ActiveMV with Fzv-Lxgjozed-Imzxwp (CENTRUM SILVER) 0.4 mg-300 mcg- 250 mcg tab (20 sources)take 1 tablet by mouth once dailyMV with Uaj-Szmeodid-Skbxws (CENTRUM SILVER) 0.4 mg-300 mcg- 250 mcg tab Take 1 tablet by mouth once daily. Activetake 1 tablet by mouth once dailyMV with Pfy-Qjcdsxjc-Qwxijj (CENTRUM SILVER) 0.4 mg-300 mcg- 250 mcg tab Take 1 tablet by mouth once daily. 0 Active Comment on above:Take 1 tablet by mouth once daily.nitrofurantoin, macrocrystals 25 mg / nitrofurantoin, monohydrate 75 mg oral capsule (3 sources)Nitrofuran AntibacterialStart: 02-05-2023 End: 42-73-8344rkod 1 capsule by mouth twice dailynitrofurantoin monohydrate and macrocrystal (MACROBID) 100 mg capsule Take 1 capsule by mouth twicedaily for 5 days. 10 capsule 0 02/05/2023 02/10/2023 ActiveComment on above:Take 1 capsule by mouth twice daily for 5 days.nystatin 100 unt/mg topical powder (9 sources)Polyene AntifungalStart: 17-80-3891gcimpvee (MYCOSTATIN) powder Apply 1 Application topically in the morning and 1 Application at noonand 1 Application in the evening and 1 Application before bedtime. 15 g 1 12/29/2024 Active2 ml ondansetron 2 mg/ml injection (20 sources)Serotonin-3 Receptor AntagonistStart: 03-13-2022 End: 21-98-7258dxsscfdowyy orally disintegrating 4 mg tab(s) (ZOFRAN ODT)Start: 03-13-2022 End: 50-02-7876klscejhctxb (PF) 4 mg injection (ZOFRAN)Start: 09-30-2019 End: 31-27-4843srjl 1 tablet by mouth every six hours as needed for nausea and vomitingOndansetron 4 mg Tablet,Disintegrating Discontinued 4 MG PO Every 6 hours as needed for Nausea And Vomiting September 30, 2019 12:00am February 07, 2022 4:10pmStart: 04-08-2019 End: 75-64-1006tmwh 1 tablet by mouth every eight hours as needed for nausea and vomitingOndansetron 4 mg tablet,disintegrating Discontinued 4 MG PO Q8H as needed for nausea and vomiting 15 5 April 07, 2019 11:00pm June 19, 2019 11:48ampantoprazole 40 mg delayed release oral tablet (20 sources)Proton Pump InhibitorStart: 48-12-3057ymtw 1 tablet by mouth in the morning, then take 1 tablet by mouth at bedtimepantoprazole (PROTONIX) 40 mg EC tablet Take 1 tablet (40 mg total) by mouth in the morning and 1 tablet (40 mg total) before bedtime. 05/15/2022 ActiveStart: 09-12-2021 End: 89-22-3916tcfh 1 tablet by mouth twice dailypantoprazole DR (PROTONIX) 40 mg tablet Take 1 tablet by mouth twice daily 180 tablet 3 10/17/2024 Active Comment on above:Take 1 tablet by mouth twice daily.take 1 tablet by mouth twice a dayperflutren lipid microspheres 1.3 mL in NaCl (PF) 0.9% 10 mL injection (DEFINITY) (20 sources)Start: 03-27-2022 End: 39-90-8837dwhmyrzwnr lipid microspheres 1.3 mL in NaCl (PF) 0.9% 10 mL injection (DEFINITY)Start: 05-16-2021 End: 83-86-1635flkbpuabiu lipid microspheres 1.3 mL in NaCl (PF) 0.9% 10 mL injection (DEFINITY)predniSONE 50 mg oral tablet (20 sources)Start: 80-32-5772cywgtzTKCB (DELTASONE) 50 mg tablet 08/08/2024 ActiveStart: 04-06-2024 End: 54-76-3999ojbq 50 mg by mouth once50 mg, oral, Once, On Theresa 04/07/24 at 1200, For 1 dose, Pre-Admission TestingStart: 09-22-2023 End: 28-10-1703feyp 1 tablet by mouth in the morningpredniSONE (DELTASONE) 20 mg tablet Indications: Subacute maxillary sinusitis Take 1 tablet (20 mg total) by mouth in the morning. 7 tablet 09/22/2023 02/16/2024 Discontinued (Therapy completed)Start: 09-30-2019 End: 51-48-9552Ozfebzycsg 10 mg tablet Discontinued 0 .ROUTE .COMPLEX September 30, 2019 12:00am February 07, 2022 4:01pm 4 pills every morning for 2 days, then 3 pills every morning for 4 days, then 2 pills every morning for 4 days, then go back to usual dose of prednisone every day after that.Start: 09-30-2019 End: 70-64-1680Gucfrgfsfi 5 mg tablet Discontinued 0 .ROUTE .COMPLEX September 30, 2019 12:00am February 07, 2022 4:01pm second part of prednisone taper: take 2 pills a day for 4 days, then 1 pill a day for 4 days, then 1 pill every other day x 2 doses, then stop.Start: 06-19-2019 End: 52-02-5923eumd 10 mg by mouth once dailyPrednisone 20 mg tablet Discontinued 10 MG PO Daily June 19, 2019 11:45am September 30, 2019 1 1:10amStart: 06-19-2019 End: 43-10-2385qxtj 10 mg by mouth once dailyPrednisone Discontinued 10 MG PO Daily June 19, 2019 12:45pm September 30, 2019 12:10pmStart: 05-12-2019 End: 41-47-5123snhb 2 tablets by mouth once dailyPrednisone 20 mg tablet Discontinued 40 MG PO Daily 60 May 11, 2019 11:00pm June 19, 2019 11:45amStart: 05-12-2019 End: 44-07-7930pxiz 40 mg by mouth once dailyPrednisone Discontinued 40 MG PO Daily 60 May 12, 2019 12:00am June 19, 2019 12:45pmStart: 07-15-2017 End: 35-30-9747ipil 1 tablet by mouth in the morningpredniSONE (DELTASONE) 20 mg tablet Indications: Subacute maxillary sinusitis Take 1 tablet (20 mg total) by mouth in the morning. 7 tablet 09/22/2023 Active End: 54-73-5853JZMHCZWODM ORAL Pt states only taking medication before infusions. 0 03/13/2022 DiscontinuedPREDNISONE ORAL Pt states only taking medication before infusions. 0 ActiveComment on above:Pt states only taking medication before infusions. prochlorperazine 5 mg/ml injectable solution (3 sources)PhenothiazineStart: 03-13-2022 End: 97-32-2831ikotqzrcuxeflcef 5 mg injection (COMPAZINE)125 ml sodium chloride 9 mg/ml prefilled syringe (20 sources)Start: 05-16-2021 End: 47-63-1829klsfeu chloride 0.9 % (flush) 10 mL (BD POSIFLUSH)sucralfate 100 mg/ml oral suspension (20 sources)Aluminum ComplexStart: 09-12-2021 End: 33-22-5077mbko 10 mL by mouth four times dailysucralfate (CARAFATE) 100 mg/mL suspension Take 10 mL by mouth four times daily. 420 mL 1 10/16/2021 ActiveComment on above:Take 10 mL by mouth four times daily.Sucralfate (Carafate) 100 mg/mL Suspension (8 sources)Start: 24-93-5530uihb 1 mL by mouth four times dailySucralfate (Carafate) 100 mg/mL Suspension Active 10 ML PO Four times daily February 07, 2022 4:59pmStart: 02-07-2022 End: 39-40-1891ueyb 1 mL by mouth four times dailySucralfate (Carafate) 100 mg/mL Suspension Discontinued 10 ML PO Four times daily February 06, 2022 11:00pm November 25, 2023 9:47amStart: 02-07-2022 End: 32-12-0632eros 1 mL by mouth four times dailySucralfate (Carafate) 100 mg/mL Suspension Discontinued 10 ML PO Four times daily February 07, 2022 12:00am November 25, 2023 10:47amStart: 44-17-0435jmcm 1 mL by mouth four times daily Sucralfate (Carafate) 100 mg/mL Suspension Active 10 ML PO Four times daily February 06, 2022 11:00pm24 hr venlafaxine 150 mg extended release oral capsule (20 sources)Serotonin and Norepinephrine Reuptake InhibitorStart: 14-62-3832hqet 1 capsule by mouth every twenty-four hours in the morningvenlafaxine XR (EFFEXOR-XR) 150 mg 24 hr capsule Take 1 capsule by mouth in the morning 90 capsule 1 06/05/2025 ActiveStart: 06-11-2023 End: 79-42-0857mwrd 1 capsule by mouth every twenty-four hours in the morning venlafaxine XR (EFFEXOR-XR) 150 mg 24 hr capsule Take 1 capsule by mouth in the morning 90 capsule 1 12/09/2024 06/05/2025 DiscontinuedStart: 04-03-2019 End: 71-41-3235qnbw 1 capsule by mouth once dailyvenlafaxine ER (EFFEXOR XR) 150 mg 24 hr capsule Take 1 capsule by mouth once daily. 90 capsule 3 10/23/2020 ActiveComment on above:Take 1 capsule by mouth once daily.Vitamin B Complex (20 sources)Start: 17-84-4299inovxvj b complex(B COMPLEX TAB) one daily 0 05/02/2010 SuspendedStart: 52-82-7967xqwnbxg b complex(B COMPLEX TAB) one daily 0 05/02/2010 ActiveComment on above:one dailyVitamin B Complex (B Complex 1) Tablet (8 sources)Start: 26-65-4220ujsb 1 tablet by mouth once dailyVitamin B Complex (B Complex 1) Tablet Active 100 MG PO Daily April 03, 2019 5:52pmStart: 04-03-2019 End: 94-98-7901jspw 1 tablet by mouth once dailyVitamin B Complex (B Complex 1) Tablet Discontinued 100 MG PO Daily April 02, 2019 11:00pm 2023 9:48amStart: 04-03-2019 End: 17-22-4620cpvu 1 tablet by mouth once dailyVitamin B Complex (B Complex 1) Tablet Discontinued 100 MG PO Daily April 03, 2019 12:00am 2023 10:48amStart: 12-08-2419woqs 1 tablet by mouth once dailyVitamin B Complex (B Complex 1) Tablet Active 100 MG PO Daily April 02, 2019 11:00pmvitamin B complex (B COMPLEX) tablet extended release (20 sources)Start: 03-72-5672sdqffwq B complex (B COMPLEX) tablet extended release Take by mouth. 05/02/2010 ActiveStart: 67-24-9469nhapkwf B complex (B COMPLEX) tablet extended release Take by mouth. 0 05/02/2010 Active Completed/Discontinued Medications MedicationDrug Class(es)DatesSig (Normalized)Sig (Original)acetaminophen 500 mg oral tablet (20 sources)Start: 01-26-2025 End: 85-16-9343fwjt 1 dose by mouth once1,000 mg, ORAL, ONCE, 1 dose, On Thu01/26/25 at 0900Start: 12-01-2024 End: 05-13-3646ngal 1 dose by mouth once1,000 mg, ORAL, ONCE, 1 dose, On Thu12/01/24 at 0900Start: 10-06-2024 End: 66-79-8347izlt 1 dose by mouth once1,000 mg, ORAL, ONCE, 1 dose, On Thu10/06/24 at 0900Start: 08-11-2024 End: 50-33-7588mfpr 1 dose by mouth once1,000 mg, ORAL, ONCE, 1 dose, On Thu08/11/24 at 1000Start: 06-14-2024 End: 23-36-4512dqop 1 dose by mouth once1,000 mg, ORAL, ONCE, 1 dose, On Thu06/14/24 at 0930Start: 04-19-2024 End: 62-33-7325fjcq 1 dose by mouth once1,000 mg, ORAL, ONCE, 1 dose, On Thu04/19/24 at 1030Start: 02-23-2024 End: 34-67-1440bhswwocqkebvd 1,000 mg tab(s) (TYLENOL)Start: 12-24-2023 End: 98-08-3032njxhsyjoflopg 1,000 mg tab(s) (TYLENOL)Start: 48-34-8443gviv 1 tablet by mouth every four hours as neededacetaminophen (TYLENOL) 500 mg tablet Take 1 tablet by mouth every 4 hours as needed for pain. 08/27/2022 ActiveStart: 03-13-2022 End: 73-62-0208plvatxedzldll 650 mg tab(s) (TYLENOL)Start: 04-03-2019 End: 80-81-9705kcfg 1 tablet by mouth every six hours as needed for pain Acetaminophen 500 mg Tablet Discontinued 500 MG PO Q6H as needed for Pain April 02, 2019 11:00pmJune 19, 2019 11:46amStart: 83-62-4635nzmhsirjqbmyu (TYLENOL) 325 mg tablet 12/25/2016 ActiveStart: 89-54-6882septhzyjwvjxe (TYLENOL) 325 mg tablet Take 2 tablets by mouth. Pre med 12/25/2016 Active Comment on above:Take 1 tablet by mouth every 4 hours as needed for pain. ALPRAZolam 0.5 mg oral tablet (8 sources)BenzodiazepineStart: 04-09-2019 End: 01-94-3712tghp 1 tablet by mouth once daily at bedtime as needed for anxietyAlprazolam (Xanax) 0.5 mg tablet Discontinued 0.5 MG PO Daily at bedtime as needed for anxiety 10 April 08, 2019 11:00pm May 08, 2019 10:52amamLODIPine 5 mg oral tablet (20 sources)Dihydropyridine Calcium Channel BlockerStart: 04-03-2019 End: 34-53-3303yojy 1 tablet by mouth once dailyAmlodipine 5 mg Tablet Discontinued 5 MG PO Daily June 18, 2019 11:00pm September 18, 2019 3:31pm amylase 143532 unt / lipase 80489 unt / protease 46046 unt delayed release oral capsule (8 sources)Start: 09-30-2019 End: 02-92-8054ndew 29911-60954 capsules by mouth hedgDhmznv-Gfgyzliy-Jrltjwl (Creon) 24,000-76,000 -120,000 unit Capsule,Delayed Release(Dr/Ec) Discontinued 3 CAP PO 3x/Day with meals September 30, 2019 12:00am February 07, 2022 4:11pm Further refills per GI Dr. Carrascoaspirin 81 mg delayed release oral tablet (12 sources)Platelet Aggregation Inhibitor, Nonsteroidal Anti-inflammatory Drug Start: 02-15-2024 End: 02-01-5451mhtz 1 tablet by mouth in the morningaspirin 81 mg Take 1 tablet (81 mg total) by mouth in the morning. 03/29/2024 06/30/2024 Discontinued (Therapy completed)B complex-vitamin C-folic acid (Dialyvite) 100-1 mg tablet (5 sources)Start: 04-25-2019 End: 05-82-1527bcbr 1 tablet by mouth once dailyB complex-vitamin C-folic acid (Dialyvite) 100-1 mg tablet Take 1 tablet by mouth once daily. 04/25/2019 01/05/2024 Discontinued (Med List Cleanup)Start: 33-54-7004qquc 1 tablet by mouth once dailyB complex-vitamin C-folic acid (Dialyvite) 100-1 mg tablet Take 1 tablet by mouth once daily. 0 04/25/2019 Activebelimumab 1,164 mg in NaCl 0.9% 250 mL (BENLYSTA) (1 source)Start: 01-26-2025 End: ,164 mg (10 mg/kg/dose 116.4 kg), INTRAVENOUS, at 250 mL/hr, Administer over 60 Minutes, ONCE, 1 dose, On [facility] 01/26/25 at 0900, Run over 60- 120 minutes EXP: 159901/26/25 REFRIGERATE Protect From Lightbelimumab 1,169 mg in NaCl 0.9% 250 mL (BENLYSTA) (1 source)Start: 10-06-2024 End: ,169 mg (10 mg/kg/dose 116.9 kg), INTRAVENOUS, at 250 mL/hr, Administer over 60 Minutes, ONCE, 1 dose, On [facility] 10/06/24 at 0900, Run over 60- 120 minutes EXP: 159910/06/24 REF Protect From Lightbelimumab 1,179 mg in NaCl 0.9% 250 mL (BENLYSTA) (1 source)Start: 12-24-2023 End: 07-85-7352fzgngyvgh 1,179 mg in NaCl 0.9% 250 mL [...] 250 mL (BENLYSTA) (1 source)Start: 02-23-2024 End: 73-75-8762deleqaatu 1,190 mg in NaCl 0.9% 250 mL [...] carbonate 500 mg chewable tablet (20 sources)Start: 76-46-7005gsjp 500 mg by mouth every hour as neededcalcium carbonate (TUMS) 500 mg chew Take 1 tablet by mouth every hour as needed (mouth or hand numbness or tingling). 0 08/27/2022 ActiveComment on above:Take 1 tablet by mouth every hour as needed (mouth or hand numbness or tingling).Calcium Carbonate / vitamin D3 (20 sources) End: 13-00-4360KRWHTCP CARBONATE/VITAMIN D3 (CALCIUM 600 + D ORAL) Take by mouth once daily. 0 05/12/2022 DiscontinuedCALCIUM CARBONATE/VITAMIN D3 (CALCIUM 600 + D ORAL) Take by mouth once daily. 0 ActiveComment on above:Take by mouth once daily. Calcium Carbonate-Vitamin D3 (Calcium 600 + D(3)) 600-125 mg-unit Tablet (5 sources)Start: 09-18-2019 End: 68-40-2683kbqu 2 tablets by mouth once dailyCalcium Carbonate-Vitamin D3 (Calcium 600 + D(3)) 600-125 mg-unit Tablet Discontinued 2 TAB PO Daily September 18, 2019 1:00am February 07, 2022 5:11pmStart: 09-18-2019 End: 80-78-5547lzrw 2 tablets by mouth once dailyCalcium Carbonate-Vitamin D3 (Calcium 600 + D(3)) 600-125 mg-unit Tablet Discontinued 2 TAB PO Daily September 18, 2019 12:00am February 07, 2022 4:11pmcarvedilol 12.5 mg oral tablet (15 sources)alpha-Adrenergic Girish, beta-Adrenergic BlockerStart: 04-03-2019 End: 41-23-5146tcfu 1 tablet by mouth twice dailyCarvedilol 12.5 mg Tablet Discontinued 12.5 MG PO Twice daily April 02, 2019 11:00pm April 09, 2019 11:17amcarvedilol (Coreg) 12.5 MG tablet every 12 (twelve) hours ActiveCentrum Silver Oral Tablet (8 sources)Start: 80-37-9604gojp 1 tablet by mouth once dailyCentrum Silver Oral Tablet TAKE 1 TABLET DAILY. Quantity: 0 Refills: 0 Ordered: 25-Apr-2019 DO Start: 25-Apr-2019 Activecephalexin 500 mg oral capsule (20 sources)Cephalosporin AntibacterialStart: 82-28-4949iznb 1 capsule by mouth four times dailycephALEXin (KEFLEX) 500 mg capsule Take 1 capsule by mouth four times daily. 28 capsule 0 02/12/2023 ActiveStart: 02-09-2022 End: 02-33-4686dubh 1 capsule by mouth every six hoursCephalexin 500 mg capsule Discontinued 500 MG PO Q6H 12 3 February 08, 2022 11:00pm November 25, 2023 9:44am Start: 09-30-2019 End: 34-22-9883omik 1 capsule by mouth three times dailyCephalexin (Keflex) 500 mg capsule Discontinued 500 MG PO Three times daily 9 September 30, 2019 12:00am February 07, 2022 4:08pmComment on above:Take 1 capsule by mouth four times daily.cholestyramine resin 4000 mg powder for oral suspension (20 sources)Bile Acid SequestrantStart: 09-18-2023 End: 58-30-2111Kvldtrvkdgfuov (With Sugar) (Questran) 4 gram powder in packet Discontinued EACH PO Three times daily September 18, 2023 12:00am November 25, 2023 9:44amStart: 02-07-2022 End: 54-02-8235Pvfmzhqtsjxtcr-Aspartame 4 gram Powder Discontinued 4 GM PO Twice daily February 06, 2022 11:00pm November 25, 2023 9:44amStart: 10-16-2021 End: 14-38-8234ornl 4 g by mouth twice daily at mealtimecholestyramine-sucrose (QUESTRAN) 4 gram powder Take 4 g by mouth twice daily with meals. 240 g 3 10/17/2022 DiscontinuedComment on above:Take 4 g by mouth twice daily with meals.Take 4 g by mouth three times daily with meals.cilgavimab 300 mg intramuscular injection (EVUSHELD) (1 source)Start: 03-13-2022 End: 09-09-7269sonhahysdv 300 mg intramuscular injection (EVUSHELD) dextromethorphan hydrobromide 1.5 mg/ml / pyrilamine maleate 1.5 mg/ml oral solution (11 sources)Uncompetitive Y-tapcji-E-aspartate Receptor Antagonist, Sigma-1 AgonistStart: 07-16-2023 End: 81-35-4103dvar 5 mL by mouth four times daily as needed for cough and congestionpyrilamine-dextromethorphan 7.5-7.5 mg/5 mL liquid Indications: Subacute maxillary sinusitis Take 5mL by mouth 4 (four) times a day as needed (cough and congestion). 200 mL 1 09/22/2023 02/16/2024 Discontinued (Therapy completed)dicloxacillin 500 mg oral capsule (2 sources)Penicillin-class AntibacterialStart: 01-08-2023 End: 09-85-8568donq 1 capsule by mouth four times dailydicloxacillin (DYNAPEN) 500 mg capsule Take 1 capsule by mouth four times daily. 28 capsule 0 01/08/2023 01/22/2023 Discontinued (Course of therapy completed)Comment on above:Take 1 capsule by mouth four times daily.24 hr dilTIAZem hydrochloride 180 mg extended release oral capsule (8 sources)Calcium Channel BlockerStart: 05-12-2019 End: 12-08-7905gzyn 1 capsule by mouth once dailyDiltiazem Hcl 180 mg Capsule,Extended Release 24hr Discontinued 180 MG PO Daily May 11, 2019 11:00pm June 19, 2019 11:46am1 ml EPINEPHrine 1 mg/ml injection (3 sources)alpha-Adrenergic Agonist, beta-Adrenergic Agonist, Catecholamine Start: 03-13-2022 End: 95-57-3591FCWPTYJthyz 1 mg/mL (1 mL) 0.3 mg injectionezetimibe 10 mg oral tablet (8 sources)Dietary Cholesterol Absorption InhibitorStart: 04-03-2019 End: 68-73-4368xrww 1 tablet by mouth once dailyEzetimibe 10 mg Tablet Discontinued 10 MG PO Daily April 02, 2019 11:00pm September 30, 2019 11: 09amflecainide acetate 150 mg oral tablet (17 sources)AntiarrhythmicStart: 10-29-2023 End: 32-34-4652ljwr 1 tablet by mouth twice dailyflecainide (Tambocor) 150 mg tablet Indications: Paroxysmal atrial fibrillation (CMS/HCC) Take 1 tablet (150 mg) by mouth 2 times a day. 180 tablet 3 10/29/2023 11/16/2023 Discontinued (Other)Start: 09-17-2023 End: 78-14-4404hijo 1 tablet by mouth every twelve hoursFlecainide 100 mg tablet Discontinued 100 MG PO Q12H September 18, 2023 12:00am November 25, 2023 9:48am Start: 09-17-2023 End: 46-78-7997rpeg 1 tablet by mouth twice dailyflecainide (Tambocor) 100 mg tablet Indications: Paroxysmal atrial fibrillation (CMS/HCC) Take 1 tablet (100 mg) by mouth 2 times a day. 180 tablet 3 09/17/2023 10/29/2023 Discontinued (Dose adjustment)Comment on above:Take 1 tablet by mouth every 12 hours. fluticasone propionate 0.05 mg/actuat metered dose nasal spray (8 sources)CorticosteroidStart: 07-11-2024 End: 03-29-6201nbqa 2 spray(s) nasal route in the morningfluticasone propionate (FLONASE) 50 mcg/actuation nasal spray Administer 2 sprays into each nostrilin the morning. 16 g 1 07/11/2024 11/28/2024 Discontinued (Therapy completed) hydroCHLOROthiazide 25 mg / metoprolol tartrate 100 mg oral tablet (2 sources)Thiazide Diuretic, beta-Adrenergic Girish End: 79-29-7669zbknlvipkh ta-hydroCHLOROthiaz (LOPRESSOR HCT) 100-25 mg per tablethydrocortisone 100 mg injection (3 sources)CorticosteroidStart: 03-13-2022 End: 58-10-0330suaqxksvuvfjjd sodium succinate (PF) 100 mg injection (Solu-CORTEF)hyoscyamine sulfate 0.125 mg sublingual tablet (11 sources) End: 19-43-2183vmbqewumqkf (LEVSIN) 0.125 mg SL tablet 03/30/2024 Discontinued (Therapy completed)iohexol (OMNIPaque) 350 mg iodine/mL solution 70 mL (2 sources)Start: 08-15-2024 End: 14-17-001918 mL, intravenous, Once in imaging, Starting on 08/15/24 at 1151, For 1 doseStart: 04-07-2024 End: 03-74-786239 mL, intravenous, Once in imaging, Starting on Theresa 04/07/24 at 1217, For 1 doseiv contrast (will be provided with radiology test) (20 sources)Start: 09-30-2023 End: 70-08-5086qt contrast (will be provided with radiology test) [...] Each 09/30/2023 09/30/2024 Discontinued (Discontinued by Patient)Start: 12-43-3668fe contrast (will be provided with radiology test) [...] administration guidelines link. 1 Each 09/30/2023 ActiveStart: 83-90-4041qk contrast (will be provided with radiology test) [...] 1 Each 0 09/30/2023 ActiveStart: 03-27-2022 End: 76-21-5982fp contrast (will be provided with radiology test) [...] Each 0 03/27/2022 03/28/2022 ActiveStart: 06-20-2021 End: 65-45-3606fc contrast (will be provided with radiology test) [...] 06/20/2021 07/31/2022 Discontinued (Course of therapy completed)Start: 84-53-0256pq contrast (will be provided with radiology test) [...] guidelines link. 1 Each 0 06/20/2021 SuspendedStart: 35-90-4406sa contrast (will be provided with radiology test) [...] (4 sources)Antiarrhythmic, Amide Local AnestheticStart: 03-10-2025 End: 98-58-5837kmqymtbcd (PF) 10 mg/mL (1 %) 4 mL injection (XYLOCAINE)Start: 03-10-2025 End: mL, Injection - FOR ORTHO USE ONLY, ONCE, 1 dose, Starting on Thu03/10/25 at 0948, Until Thu03/10/25 at 0948Start: 05-20-2024 End: 69-08-2966iqvzizibb (PF) 10 mg/mL (1 %) 4 mL injection (XYLOCAINE)Start: 05-20-2024 End: mL, Injection - FOR ORTHO USE ONLY, ONCE, 1 dose, Starting on Thu05/20/24 at 1028, Until Thu05/20/24 at 1028lisinopril 20 mg oral tablet (16 sources)Angiotensin Converting Enzyme InhibitorStart: 09-18-2019 End: 24-89-0570xsaw 1 tablet by mouth once dailyLisinopril 20 mg Tablet Discontinued 20 MG PO Daily September 18, 2019 12:00am September 30, 2019 1 1:09amStart: 04-03-2019 End: 87-69-9100aglf 1 tablet by mouth once dailyLisinopril 20 mg Tablet Discontinued 20 MG PO Daily April 02, 2019 11:00pm April 09, 2019 11:17am loperamide hydrochloride 2 mg oral capsule (8 sources)Opioid AgonistStart: 05-12-2019 End: 16-95-5689dceg 1 capsule by mouth every four hours as needed for diarrhea Loperamide 2 mg Capsule Discontinued 2 MG PO Q4H as needed for Diarrhea May 11, 2019 11:00pm June 19, 2019 11:46ammagnesium oxide 400 mg oral tablet (8 sources)Start: 04-09-2019 End: 15-10-9253rrlp 1 tablet by mouth twice dailyMagnesium Oxide 400 mg (241.3 mg magnesium) Tablet Discontinued 400 MG PO Twice daily 60 April 08, 2019 11:00pm September 18, 2019 3:31pmMesalamine (Lialda) 1.2 gram Tablet,Delayed Release (Dr/Ec) (8 sources)Start: 05-12-2019 End: 72-09-3823ajql 4 tablets by mouth once dailyMesalamine (Lialda) 1.2 gram Tablet,Delayed Release (Dr/Ec) Discontinued 4.8 GM PO Daily May 12, 2019 2:54pm June 19, 2019 12:45pmStart: 05-12-2019 End: 31-21-1820ullk 4 tablets by mouth once dailyMesalamine (Lialda) 1.2 gram Tablet,Delayed Release (Dr/Ec) Discontinued 4.8 GM PO Daily May 12, 2019 12:00am June 19, 2019 12:45pmStart: 05-12-2019 End: 55-00-5379hicw 4 tablets by mouth once dailyMesalamine (Lialda) 1.2 gram Tablet,Delayed Release (Dr/Ec) Discontinued 4.8 GM PO Daily May 11, 2019 11:00pm June 19, 2019 11:45ammethylPREDNISolone 40 mg injection (20 sources)CorticosteroidStart: 01-26-2025 End: 85-59-751081 mg, INTRAVENOUS, ONCE, 1 dose, On Theresa 01/26/25 at 0900Start: 12-01-2024 End: 83-37-059076 mg, INTRAVENOUS, ONCE, 1 dose, On Theresa 12/01/24 at 0900Start: 10-06-2024 End: 11-62-996975 mg, INTRAVENOUS, ONCE, 1 dose, On Theresa 10/06/24 at 0900Start: 08-11-2024 End: 42-71-160437 mg, INTRAVENOUS, ONCE, 1 dose, On Theresa 08/11/24 at 1000Start: 07-11-2024 End: 24-28-8003dxtj 1 tablet by mouth in the morningmethylPREDNISolone (MEDROL, CELESTE,) 4 mg tablet Take 1 tablet (4 mg total) by mouth in the morning. follow package directions. 21 tablet 07/11/2024 10/11/2024 Discontinued (Therapy completed)Start: 06-14-2024 End: 93-22-330980 mg, INTRAVENOUS, ONCE, 1 dose, On Thu06/14/24 at 0930Start: 04-19-2024 End: 58-99-733582 mg, INTRAVENOUS, ONCE, 1 dose, On Thu04/19/24 at 1030Start: 02-23-2024 End: 97-23-6628wljeadPSOTGUGcrhge sod succinate(PF) 40 mg injection (SOLU-Medrol)Start: 12-24-2023 End: 93-97-5494wxsbljFRAJNGBgtryy sod succinate(PF) 60 mg injection (SOLU-Medrol)Start: 03-21-2021 End: 01-97-7317jigakfXLJHMRCccigc (MEDROL DOSE-PACK) 4 mg Dose-Pack As Instructed per package 1 Package 0 03/21/2021 01/01/2022 Discontinued (Other) Start: 47-90-7382ghhxtrSTXCWIBvqyag (MEDROL DOSE-PACK) 4 mg Dose-Pack As Instructed per package 1 Package 0 03/21/2021 ActiveStart: 09-18-2019 End: 64-09-4787lukr 40 mg intravenously every three monthsMethylprednisolone Sodium Succ 40 mg Recon Soln Discontinued 40 MG IV As Directed September 18, 2019 12:00am September 30, 2019 11:10am EVERY THREE MONTHSStart: 04-03-2019 End: 72-71-0122Ryncmrfsohskhhxckt Sodium Succ 40 mg Recon Soln Discontinued 60 MG IV As Directed April 02, 201911:00pm May 12, 2019 1:58pmStart: 04-03-2019 End: 63-26-7271Lgynosvtnkifgkrear Sodium Succ Discontinued 60 MG IV As Directed April 03, 2019 12:00am May 12, 2019 2:58pmComment on above:As Instructed per packagemycophenolate mofetil 500 mg oral tablet (20 sources)Start: 04-03-2019 End: 91-90-7613uylc 1 tablet by mouth at bedtimeMycophenolate Mofetil 500 mg Tablet Discontinued 1000 MG PO Bedtime April 02, 2019 11:00pm 2023 9:47amStart: 04-03-2019 End: 34-27-4588qajk 1000 mg by mouth at bedtimeMycophenolate Mofetil Discontinued 1000 MG PO Bedtime April 03, 2019 12:00am November 25, 2023 10: 47amStart: 12-25-2016 End: 01-64-4834pfpyxhubdegbl (CELLCEPT) 500 mg tablet Take 2 tablets (1,000 mg total) by mouth. 0 12/25/2016 09/01/2023 Discontinued (Discontinued by another clinician)Comment on above:take 2 tablets by mouth dailytake 1 tablet by mouth dailyomeprazole 40 mg delayed release oral capsule (9 sources)Proton Pump InhibitorStart: 09-04-2021 End: 78-04-7586pjzw 1 capsule by mouth twice dailyomeprazole (PRILOSEC) 40 mg capsule Indications: Epigastric pain Take 1 capsule by mouth twice daily. 60 capsule 3 09/04/2021 09/12/2021 DiscontinuedStart: 04-08-2019 End: 71-83-9309xodz 1 capsule by mouth once dailyOmeprazole 40 mg capsule,delayed release(DR/EC) Discontinued 40 MG PO Daily April 07, 2019 11:00pm February 07, 2022 4:10pmComment on above:Take 1 capsule by mouth twice daily.raNITIdine 150 mg oral tablet (2 sources)Histamine-2 Receptor AntagonistStart: 06-11-2017 End: 43-16-0902kylvdvctny (ZANTAC) 150 mg tablet Take 1 tablet (150 mg total) by mouth. 0 06/11/2017 09/01/2023 Discontinued (Therapy completed)semaglutide, weight loss, (WEGOVY) 0.25 mg/0.5 mL pen injector (2 sources)Start: 06-30-2024 End: 10-16-4790ewyupa 0.5 mL by subcutaneous injection every weeksemaglutide, weight loss, (WEGOVY) 0.25 mg/0.5 mL pen injector Inject 0.5 mL (0.25 mg total) under the skin once a week. 2 mL 2 06/30/2024 07/11/2024 Discontinued (Formulary change)Start: 25-32-5076ivywmu 0.5 mL by subcutaneous injection every week semaglutide, weight loss, (WEGOVY) 0.25 mg/0.5 mL pen injector Inject 0.5 mL (0.25 mg total) under the skin once a week. 2 mL 2 06/30/2024 Activesimvastatin 40 mg oral tablet (7 sources)HMG-CoA Reductase Inhibitor End: 93-92-6568denliyplwqw (ZOCOR) 40 mg tablet Take 1 tablet (40 mg total) by mouth. 02/16/2024 Discontinued (Discontinued by another clinician)spironolactone 50 mg oral tablet (20 sources)Aldosterone AntagonistStart: 09-30-2019 End: 44-28-1258bmfzneuiykobwm (ALDACTONE) 50 mg tablet Take 1 tablet (50 mg total) by mouth. 03/22/2024 12/29/2024DiscontinuedStart: 09-18-2019 End: 53-46-6303dmim 1 tablet by mouth once dailySpironolactone 25 mg Tablet Discontinued 25 MG PO Daily September 18, 2019 12:00am September 30, 2019 11:09amComment on above:Take 50 mg by mouth once daily.tixagevimab 300 mg intramuscular injection (EVUSHELD) (1 source)Start: 03-13-2022 End: 59-08-1473enhmghvnrxu 300 mg intramuscular injection (EVUSHELD)torsemide 20 mg oral tablet (8 sources)Loop DiureticStart: 09-18-2019 End: 89-26-5026gplu 2 tablets by mouth once dailyTorsemide 20 mg Tablet Discontinued 40 MG PO Daily September 18, 2019 12:00am September 30, 2019 11 :09amStart: 09-18-2019 End: 13-80-4083pwph 40 mg by mouth once dailyTorsemide Discontinued 40 MG PO Daily September 18, 2019 1:00am September 30, 2019 12:09pm1 ml triamcinolone acetonide 40 mg/ml injection (6 sources)CorticosteroidStart: 03-10-2025 End: 58-49-5487mmqonyobnkvvw acetonide 40 mg injection (KeNALog 40)Start: 03-10-2025 End: 59-97-681770 mg, Injection - FOR ORTHO USE ONLY, ONCE, 1 dose, Starting on Thu03/10/25 at 0948, Until Thu03/10/25 at 0948Start: 11-28-2024 End: 14-46-4364emfebmrzrlfgc acetonide (KENALOG-40) injection 40 mgStart: 11-28-2024 End: 20-10-331375 mg, intra-articular, Once, On Thu11/28/24 at 1445, For 1 dose Start: 05-20-2024 End: 25-32-1203iyxupurtfqigc acetonide 40 mg injection (KeNALog 40)Start: 05-20-2024 End: 48-09-095856 mg, Injection - FOR ORTHO USE ONLY, ONCE, 1 dose, Starting on Thu05/20/24 at 1028, Until Thu05/20/24 at 1028Turmeric extract (8 sources)Start: 04-03-2019 End: 04-56-3398levv 400 mg by mouth once dailyTurmeric Discontinued 400 MG PO Daily April 03, 2019 5:52pm June 19, 2019 12:48pmStart: 04-03-2019 End: 36-99-6775ltcm 1 capsule by mouth once dailyTurmeric 400 mg Capsule Discontinued 400 MG PO Daily April 02, 2019 11:00pm June 19, 2019 11 :48amStart: 04-03-2019 End: 65-29-8733hsgo 400 mg by mouth once dailyTurmeric Discontinued 400 MG PO Daily April 03, 2019 12:00am June 19, 2019 12:48pmStart: 04-03-2019 End: 58-95-1204hujd 400 mg by mouth once dailyTurmeric Discontinued 400 MG PO Daily April 02, 2019 11:00pm June 19, 2019 11:48amvancomycin 125 mg oral capsule (11 sources)Glycopeptide AntibacterialStart: 10-29-2022 End: 10-50-5994zqsthjfesg (VANCOCIN) 125 mg capsuleStart: 10-01-2022 End: 79-25-6932wpti 1 capsule by mouth four times dailyvancomycin (VANCOCIN HCL) 125 mg capsule Indications: C. difficile colitis Take 1 capsule by mouth four times daily for 14 days. 56 capsule 0 10/01/2022 10/15/2022 ActiveStart: 02-24-2022 End: 35-50-1853plse 1 capsule by mouth four times dailyvancomycin [...] days.Vitamin B Complex Oral Tablet (8 sources)Start: 74-33-6534vgci 1 tablet by mouth once dailyVitamin B Complex Oral Tablet TAKE 1 TABLET DAILY. Quantity: 0 Refills: 0 Ordered: 25-Apr-2019 DO Start : 25-Apr-2019 Activewarfarin sodium 5 mg oral tablet (15 sources)Vitamin K AntagonistStart: 11-22-2010 End: 41-65-6331oubz 1 tablet by mouth once dailyWarfarin 5 mg Tablet Discontinued 5 MG PO Daily April 02, 2019 11:00pm May 08, 2019 10:49 am Problems Active Problems Problem ClassificationProblemDateDocumented DateEpisodic/ChronicAbdominal pain (12 sources)Epigastric pain; Translations: [Epigastric pain]Onset: 2022 65-48-0836NrkftrtoYreucgeq foot deformities (20 sources)Acquired hallux valgus; Translations: [Hallux valgus (acquired), unspecified foot]Onset: 536114-32-2596CopewmdBkbdoybqccrnlw/social admission (1 source)Repeated prescription; Translations: [Encounter for issue of repeat prescription]EpisodicAnxiety disorders (1 source)Anxiety; Translations: [Anxiety disorder, unspecified]03-30-2024 ChronicAortic; peripheral; and visceral artery aneurysms (20 sources)Aneurysm of ascending aorta; Translations: [Thoracic aortic aneurysm, without rupture]Onset: 013769-60-1010ZpfyunmIqczne (20 sources)Reactive airway disease; Translations: [Unspecified asthma, uncomplicated]Onset: 607724-48-5472AqajfoqFswknpm dysrhythmias (20 sources)Paroxysmal atrial fibrillation; Translations: [Atrial fibrillation] Onset: 02-22-2010 Resolved: 327994-44-0275ZdxbcpoPdsreoj kidney disease (20 sources)Chronic kidney disease stage 3; Translations: [Stage 3 chronic kidney disease]Onset: 535634-51-6081YskusynWrzxejk kidney disease (2 sources)Chronic kidney disease; Translations: [Chronic kidney disease, stage 3a]Onset: 75-41-9113Rhanusl ulcer of skin (4 sources)Ulcer of toe; Translations: [Non-pressure chronic ulcer of other part of right foot limited to breakdown of skin]ChronicComplications of surgical procedures or medical care (1 source)History of parathyroidectomy; Translations: [Postprocedural hypoparathyroidism]ChronicCongestive heart failure; nonhypertensive (20 sources)Chronic congestive heart failure; Translations: [Heart failure, unspecified]Onset: 04-17-2019 Resolved: 526796-81-1642IfdwivlApxjarhuz congenital anomalies (1 source)Congenital pancreatic cyst; 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] 00-95-4360ZksizktZasvwyegb of lipid metabolism (20 sources)Mixed hyperlipidemia; Translations: [Mixed hyperlipidemia]Onset: 270509-83-1367NmqbkliTbdfchkyteohth and diverticulitis (20 sources)Diverticulosis of large intestine without perforation or abscess without bleeding; Translations: [Diverticulitis of sigmoid colon]Onset: 491699-83-0993DxuxepuWkvbicydov disorders (3 sources)Gastroesophageal reflux disease without esophagitis; Translations: [Gastro-esophageal reflux disease without esophagitis]Onset: 06-16-2025 84-09-6012HujektoIhunzyxfd hypertension (20 sources)Essential hypertension; Translations: [Essential (primary) hypertension]Onset: 881605-03-4993BoddqhfDhlce of unknown origin (1 source)Fever, unspecified; Translations: [FEVER UNSPECIFIED]Onset: 09-30-2022 EpisodicGastroduodenal ulcer (except hemorrhage) (20 sources)Gastric ulcer; Translations: [Gastric ulcer, unspecified as acute or chronic, without hemorrhage orperforation]Onset: hronic Heart valve disorders (1 source)Nonrheumatic aortic (valve) stenosis; Translations: [Nonrheumatic aortic (valve) stenosis]Onset: 66-80-1654IpugijlCvwdxmapfj infection (3 sources)Clostridium difficile diarrhea; Translations: [Enterocolitis due to Clostridium difficile, not specified as recurrent]Onset: 84-10-8775Rciwmalb Malaise and fatigue (9 sources)Asthenia; Translations: [Weakness]46-48-5242ZuvjgyqzMalcgeazay disorders (1 source)Postmenopausal bleeding; Translations: [Postmenopausal bleeding] 48-95-8831OhbyidbVhwa disorders (20 sources)Chronic depression; Translations: [Chronic depression]Onset: 937815-70-3486UnvjiraSvrilww (1 source)Pain in toe; Translations: [Tinea unguium]49-83-1197BhywkmgqIjymifygm; nephrosis; renal sclerosis (20 sources)Membranous glomerulonephritis; 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]Onset: ChronicNoninfectious gastroenteritis (10 sources)Inflammatory bowel disease; Translations: [Noninfective gastroenteritis and colitis, unspecified]27-18-3563KtvmtqxkFjbeoyboxsv deficiencies (20 sources)Vitamin D deficiency; Translations: [Vitamin D deficiency, unspecified]Onset: 144947-71-7715SoqzretXtmjbbxouwmggf (20 sources)Degenerative joint disease of ankle AND/OR foot; Translations: [Primary osteoarthritis, unspecifiedankle and foot]Onset: 01-02-2014 Resolved: 009292-04-3326LbfkoohLulmm aftercare (17 sources)Drug therapy finding; Translations: [Other group home (current) drug therapy]EpisodicOther aftercare (5 sources)Long-term current use of 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; Translations: [alf (current) use of 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]EpisodicOther aftercare (3 sources)emt intermediate (current) use of anticoagulants; Translations: [RECREATION PROFESSOR CURRNT USE ANTICOAGULANTS]Onset: 24-18-7650XzruersaMertj aftercare (20 sources)Long-term current use of anticoagulant; Translations: [emt intermediate (current) use of anticoagulants]Onset: 639432-09-9266CwkkvtlvLtaqb aftercare (10 sources)Surgical follow-up; Translations: [Encounter for follow-up examination after completed treatment for conditions other than malignant neoplasm]Onset: 114393-44-1236AwpvrxxbEkcit aftercare (1 source)Encounter for follow-up examination after completed treatment for conditions other than malignant neoplasm; Translations: [Surgery follow-up] Onset: 54-28-5094NjeonglhUdqgx bone disease and musculoskeletal deformities (7 sources)Osteopenia; Translations: [Other specified disorders of bone density and structure, unspecified site]EpisodicOther bone disease and musculoskeletal deformities (2 sources)Disorder of bone; Translations: [Disorder of bone, unspecified] 49-65-7899TxeawfpfTaluv circulatory disease (6 sources)Presence of other cardiac implants and grafts; Translations: [Other specified cardiac device in situ]Onset: 429685-17-0613WepqxlyArgls circulatory disease (8 sources)Low blood pressure; Translations: [Hypotension, unspecified] 07-60-9034DcuqulrlCkfiv connective tissue disease (20 sources)History of repair of hip joint; Translations: [Presence of right artificial hip joint]Onset: 885959-09-8313UbjndeyKfvhj connective tissue disease (20 sources)History of total hip arthroplasty; Translations: [Presence of unspecified artificial hip joint]Onset: 143167-11-1639ZzwysvtRdpko connective tissue disease (1 source)Tendinosis; Translations: [Other specified enthesopathies of unspecified lower limb, excluding foot]49-10-6465TbekwyxrUdqyn connective tissue disease (1 source)Arthrodesis status; Translations: [History of fusion of talotibial joint and subtalar joint]Onset: 18-58-7851NfajxwstOlqhs endocrine disorders (1 source)Primary hyperparathyroidism; Translations: [Primary hyperparathyroidism]ChronicOther endocrine disorders (20 sources)Disorder of parathyroid gland; Translations: [Unspecified disorder of parathyroid gland]Onset: 932175-64-6454QdnskxjZligk endocrine disorders (2 sources)Hyperparathyroidism, unspecified; Translations: [Hyperparathyroidism, unspecified]Onset: 30-21-8323TkjildxYcwif gastrointestinal disorders (1 source)Bile acid malabsorption syndrome; 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]26-96-4401GbmtnlwTeiwy gastrointestinal disorders (1 source)Other intestinal malabsorption; Translations: [Bile acid malabsorption syndrome (HCC)]Onset: 90-18-6805YfaykdfAvevg gastrointestinal disorders (20 sources)Diarrhea; Translations: [Diarrhea, unspecified]EpisodicOther gastrointestinal disorders (6 sources)Diarrhea, unspecified; Translations: [DIARRHEA UNSPECIFIED]Onset: 14-62-7005XzdzbstoEgeup gastrointestinal disorders (1 source)Diarrhea of presumed infectious origin; Translations: [Diarrhea, unspecified]45-64-1519XymoymhxNzhfq hematologic conditions (8 sources)High troponin I level; Translations: [Other specified abnormalities of plasma proteins]85-81-4895TkrtralhKekvc hematologic conditions (8 sources)Raised cardiac enzyme or marker; Translations: [Other specified abnormalities of plasma proteins]11-31-1996QbccgmhjHttwn inflammatory condition of skin (1 source)Intertrigo; Translations: [Erythema intertrigo]36-16-2394UzrscrwjTjige inflammatory condition of skin (1 source)Erythema intertrigo; Translations: [Erythema intertrigo]Onset: 58-16-6763XzghnrfbUuxyp lower respiratory disease (8 sources)Hypoxia; Translations: [Hypoxemia]19-39-6309LhgftgiaUlhdx lower respiratory disease (1 source)Solitary pulmonary nodule; Translations: [SOLITARY PULMONARY NODULE] Onset: 71-89-1017CyugimkwLkamp lower respiratory disease (1 source)Dyspnea on exertion; Translations: [Other forms of dyspnea]10-11-2024 EpisodicOther lower respiratory disease (1 source)Other forms of dyspnea; Translations: [Other forms of dyspnea]Onset: 81-90-7983FxzntbjyLwueg nervous system disorders (20 sources)Plantar nerve lesion; Translations: [Lesion of plantar nerve, unspecified lower limb]Onset: 552872-95-6520EqisoulTbxnt nervous system disorders (8 sources)Metabolic encephalopathy; Translations: [Metabolic encephalopathy] 91-03-0744ZfwdxdiVxfns nervous system disorders (7 sources)Disorder of brain; Translations: [Encephalopathy, unspecified] 18-18-2006ElhayxgIiwzp nervous system disorders (20 sources)Carpal tunnel syndrome; Translations: [Carpal tunnel syndrome, unspecified upper limb]Onset: 782042-28-5178BrreaewYensu nervous system disorders (2 sources)Impairment of balance; Translations: [Other abnormalities of gait and mobility]EpisodicOther nervous system disorders (1 source)Postoperative pain ; Translations: [Other acute 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 pain] 76-66-6464HoaqmjplLpfdk non-traumatic joint disorders (6 sources)Charcot's arthropathy; Translations: [Charcot's joint, unspecified site]48-15-0766UdavwzkEqteb non-traumatic joint disorders (1 source)Arthropathy associated with a neurological disorder; Translations: [Charcot's joint, unspecified site]92-28-1678LueuisgKjrka non-traumatic joint disorders (2 sources)Charcot's joint, unspecified site; Translations: [Charcot arthropathy]Onset: 01-59-6277JbowejlUutyx non-traumatic joint disorders (4 sources)Pain in left knee; Translations: [Pain in joint, lower leg]03-15-2024 EpisodicOther non-traumatic joint disorders (1 source)Hip pain; Translations: [Pain in right hip]68-43-8310XrgpduoyLitgv non-traumatic joint disorders (1 source)Acute ankle pain; Translations: [Pain in right ankle and joints of right foot]61-22-8209OvkyjyluMakgn non-traumatic joint disorders (1 source)Pain in right ankle and joints of right foot; Translations: [Pain in right ankle and joints of right foot]Onset: 48-34-7995RnayeqbqXfgil nutritional; endocrine; and metabolic disorders (20 sources)Body mass index 40+ - severely obese; Translations: [Morbid (severe) obesity due to excess calories]Onset: 918003-24-7949JeafmlyAgmko nutritional; endocrine; and metabolic disorders (20 sources)Obese class II; Translations: [Obesity, unspecified]Onset: 687083-98-3962LirtrztJwpbe nutritional; endocrine; and metabolic disorders (20 sources)Morbid obesity; Translations: [Morbid (severe) obesity due to excess calories]Onset: 09-13-2021 Resolved: 124010-16-0751AllzbysWchtu nutritional; endocrine; and metabolic disorders (20 sources)Hyperbilirubinemia; Translations: [Other disorders of bilirubin metabolism]Onset: 140536-76-5593XcnwweaKkdtc nutritional; endocrine; and metabolic disorders (7 sources)Obesity; Translations: [Obesity, unspecified]88-68-8754GrrzkejLgcah nutritional; endocrine; and metabolic disorders (3 sources)Obesity, unspecified; Translations: [Obesity, unspecified]Onset: 95-32-7442KgoptnuPszrt nutritional; endocrine; and metabolic disorders (20 sources)Hypercalcemia; Translations: [Hypercalcemia]Onset: 59-56-0529Htueylm Other nutritional; endocrine; and metabolic disorders (8 sources)Severe obesity; Translations: [Morbid obesity]ChronicOther nutritional; endocrine; and metabolic disorders (3 sources)Body mass index (BMI) 40.0-44.9, adult; Translations: [BODY MASS INDEX BMI 40.0-44.9 ADULT]Onset: 29-68-4964AvrbxzgEqdwz nutritional; endocrine; and metabolic disorders (1 source)Hypomagnesemia; Translations: [Hypomagnesemia]90-35-1875XbpkrqoIyhvo nutritional; endocrine; and metabolic disorders (1 source)Morbid (severe) obesity due to excess calories; Translations: [Morbid (severe) obesity due to excess calories]Onset: 57-44-1544KcorthkBijcc nutritional; endocrine; and metabolic disorders (2 sources)Body mass index (BMI) 39.0-39.9, adult; Translations: [Body mass index (BMI) 39.0-39.9, adult]Onset: 87-55-9042NbrsfjvNuhlf skin disorders (6 sources)Callosity; Translations: [Corns and callosities]EpisodicOther upper respiratory disease (20 sources)Allergic rhinitis; Translations: [Allergic rhinitis, unspecified] Onset: 362575-11-7590FuuzsjtPxqym upper respiratory disease (1 source)Nasal vestibulitis; Translations: [Other specified disorders of nose and nasal sinuses]70-77-2360GajcbieuFmljash cyst (1 source)Unspecified ovarian cyst, right side; Translations: [UNSPECIFIED OVARIAN CYST RIGHT SIDE]Onset: 88-69-6114EerjqlzcKzsvebbsix disorders (not diabetes) (18 sources)Pancreatitis; Translations: [Acute pancreatitis without necrosis or infection, unspecified]16-92-6235ZrxuqwvvGjzy-; endo-; and myocarditis; cardiomyopathy (except that caused by tuberculosis or sexually transmitted disease) (1 source)Hypertrophic obstructive cardiomyopathy; Translations: [Obstructive hypertrophic cardiomyopathy]ChronicPulmonary heart disease (20 sources)Pulmonary hypertension; Translations: [Pulmonary hypertension, unspecified]Onset: 265489-38-7699QcwlecsKpejzegn enteritis and ulcerative colitis (20 sources)Ulcerative colitis; Translations: [Ulcerative colitis, unspecified, without complications]Onset: 412130-54-1195XatuiqoGsigftsr codes; unclassified (20 sources)Sleep apnea; Translations: [Sleep apnea, unspecified]Onset: 566317-80-2606SpvuypuGlnfhwue codes; unclassified (20 sources)Obstructive sleep apnea syndrome; Translations: [Obstructive sleep apnea (adult) (pediatric)]Onset: 174160-87-3018FycsrhkPopavtlg codes; unclassified (6 sources)Obstructive sleep apnea (adult) (pediatric); Translations: [Obstructive sleep apnea (adult)(pediatric)]Onset: 72-99-0976NrumrgdCjxzlkpb codes; unclassified (8 sources)Obstructive sleep apnea of adult; Translations: [Obstructive sleep apnea (adult)(pediatric)]ChronicResidual codes; unclassified (8 sources)Altered mental status; Translations: [Altered mental status, unspecified]02-86-8662ZoiohhtiGqnudczv codes; unclassified (3 sources)Altered mental status, unspecified; Translations: [Altered mental status]EpisodicResidual codes; unclassified (3 sources)Postmenopausal state; Translations: [Asymptomatic menopausal state] EpisodicResidual codes; unclassified (1 source)Other specified 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 states; Translations: [OTH SPECIFIED POSTPROCEDURAL STATES]Onset: 62-27-9324WedmpsbuKbbonhdd codes; unclassified (4 sources)History of parathyroidectomy; Translations: [Other specified 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 states]75-33-7604NogrxjvhBjebktyy codes; unclassified (1 source)At risk of disease; Translations: [Other specified personal risk factors, not elsewhere classified]14-98-6046GxsnzhplAisywiko codes; unclassified (1 source)Pain; Translations: [Pain, unspecified]76-08-5936NlrxpjzkTarnsuvw codes; unclassified (1 source)Edema of foot; Translations: [Localized edema]09-85-1982Zunaxfhp Residual codes; unclassified (1 source)Preoperative iqcdy52-76-0581LoadpxfeJyez and subcutaneous tissue infections (1 source)Cellulitis of toe; Translations: [Cellulitis of right toe]Episodic Systemic lupus erythematosus and connective tissue disorders (20 sources)Systemic lupus erythematosus; Translations: [Systemic lupus erythematosus, unspecified]Onset: 744141-51-9429BlhinwtEacvocs disorders (20 sources)Hypothyroidism; Translations: [Hypothyroidism, unspecified]Onset: 188750-69-1066KsskqagFbrjvksqdpzu (3 sources)Encntr for general adult medical exam w/o abnormal findings; Translations: [Encntr for general adult medical exam w/o abnormal findings] Onset: 93-33-6121Pdxvahwpnzsy (3 sources)alf (current) use of anticoagulants; Translations: [emt intermediate (current) use of anticoagulants]Onset: 46-03-1306Ejebcezvrrgx (1 source)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Onset: 42-90-2229Iwswnziolqbr (2 sources)Thoracic aortic aneurysm, without rupture, unspecified; Translations: [Thoracic aortic aneurysm, without rupture, unspecified]Onset: 09-17-2022 Unclassified (1 source)CONTACT W/AND (SUSP) EXPOS COVID-19; Translations: [CONTACT W/AND (SUSP) EXPOS COVID-19]Onset: 41-31-2491Ttncrvvxmtqz (4 sources)Other persistent atrial fibrillation; Translations: [Other persistent atrial fibrillation (Multi)]Onset: 03-46-7727Mhozhjyvxbbh (1 source)Foot SwellingOnset: 58-77-8496Iaxctkzkuwyb (2 sources)Aneurysm of the ascending aorta, without rupture; Translations: [Aneurysm of the ascending aorta, without rupture]Onset: 43-93-3073Clfiahhqbfcg (1 source)MAWOnset: 12-75-7754Deoqrcgqampa (2 sources)Closed fracture of left pygg27-68-0323Stcoeooivmod (1 source)Thoracic aortic aneurysm, without rupture, unspecified (CMS-HCC); Translations: [Thoracic aortic aneurysm, without rupture, unspecified (CMS-HCC)] Onset: 64-04-3509Wvukyzelybuz (1 source)Other ventricular tachycardia; Translations: [Other ventricular tachycardia]Onset: 95-60-3246Ekzfetpggteu (1 source)Ascending aortic aneurysm, unspecified whether ruptured; Translations: [Ascending aortic aneurysm, unspecified whether ruptured]Onset: 10-29-2021 Unclassified (1 source)Obesity, Class III, BMI 40-49.9 (morbid obesity) (HCC); Translations: [Obesity, Class III, BMI 40-49.9 (morbid obesity) ([facility])]Onset: 12-19-2020 Unclassified (1 source)Established PatientOnset: 70-72-1612Zfipypuoplrh (1 source)Obesity, Class III, BMI 40-49.9 (morbid obesity); Translations: [Obesity, Class III, BMI 40-49.9 (morbid obesity)]Onset: 79-48-0490Mfoafte tract infections (19 sources)Urinary tract infectious disease; Translations: [Urinary tract infection, site not specified]20-51-3218Mgahbjuj Past or Other Problems Problem ClassificationProblemDateDocumented DateEpisodic/ChronicBiliary tract disease (20 sources)Biliary calculus; Translations: [Calculus of gallbladder without cholecystitis without obstruction]Onset: 628707-58-9810NyxtloktJdsqnns obstructive pulmonary disease and bronchiectasis (20 sources)Mucopurulent chronic bronchitis; Translations: [Mucopurulent chronic bronchitis]Onset: 03-30-2024 Resolved: 152478-97-2106HpgtpnyJgibblhfekb and hemorrhagic disorders (20 sources)Thrombocytopenic disorder; Translations: [Thrombocytopenia, unspecified]Onset: 04-10-2023 Resolved: 753966-76-4217UzysgdzKafzdzcylk and other anemia (20 sources)Anemia; Translations: [Anemia, unspecified]Onset: 03-21-2024 03-31-9537BypzoqicBtstafaeqg and other anemia (5 sources)Anemia, unspecified; Translations: [Anemia, unspecified]Onset: 89-36-3345GdnucbqzQsxul and electrolyte disorders (20 sources)Hypokalemia; Translations: [Hypokalemia]Onset: EpisodicFracture of lower limb (9 sources)Closed fracture of navicular bone of foot; Translations: [Nondisplaced fracture of navicular [scaphoid] of right foot, initial encounter for closed fracture]Onset: 735784-67-2113IrblwvwfMtvspehb of lower limb (5 sources)Closed fracture of left foot; Translations: [Unspecified fracture of left foot, initial encounter for closed fracture]Onset: 23-83-980790 EpisodicGenitourinary symptoms and ill-defined conditions (20 sources)Proteinuria; Translations: [Proteinuria, unspecified]Onset: 631280-52-5754SxakayasUacrrgoh; including migraine (20 sources)Headache; Translations: [Headache]Onset: EpisodicImmunizations and screening for infectious disease (3 sources)Encounter for immunization; Translations: [Other specified vaccinations against streptococcus pneumoniae [pneumococcus]]Onset: 05-19-2024 EpisodicInflammation; infection of eye (except that caused by tuberculosis or sexually transmitteddisease) (20 sources)Conjunctivitis; Translations: [Unspecified conjunctivitis]Onset: 506287-60-7598ZuwppszfYqek disorders (20 sources)Mood disordersOnset: 03-30-2024 Resolved: 554058-47-3992Gvyxsgpxv of unspecified nature or uncertain behavior (20 sources)Intraductal papillary mucinous neoplasm of pancreas; Translations: [Neoplasm of unspecified behavior of digestive system]Onset: 03-17-2020 61-64-5199JrjokbthHanljenvntm chest pain (20 sources)Chest wall pain; Translations: [Other chest pain]Onset: 03-30-2024 71-13-8440LutgqzfkAusww aftercare (20 sources)Patient encounter status; Translations: [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]Onset: 230364-39-2251YbcfhvaxPbami aftercare (20 sources)Taking high risk medication; Translations: [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]Onset: 06-10-2023 Resolved: 12-78-0878RsfainyoZopoi aftercare (3 sources)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; Translations: [OTH RECREATION PROFESSOR CURRENT DRUG THERAPY]Onset: 42-49-6092YxzntqdxXuoye aftercare (20 sources)Long-term current use of drug therapy; Translations: [Other group home (current) drug therapy]Onset: 522081-17-1066BpniqaghEqpyo bone disease and musculoskeletal deformities (1 source)Disorder of bone, unspecified; Translations: [Disorder of bone, unspecified]Onset: 38-39-2350WnudqammYzitt connective tissue disease (20 sources)Fibromyalgia; Translations: [Fibromyalgia]Onset: 03-10-2012 49-60-5429XmfvplvdFnmbs connective tissue disease (20 sources)Enthesopathy of ankle AND/OR tarsus; Translations: [Other enthesopathy of unspecified foot and ankle]Onset: 366130-75-5768Atbzhibs Other connective tissue disease (20 sources)Neuropathy; Translations: [Neuralgia, neuritis, and radiculitis, unspecified]Onset: 196466-35-0501QjrqigvpUjhqm connective tissue disease (20 sources)Pain in left foot; Translations: [Pain in left foot]Onset: 08-07-2015 Resolved: 322366-05-0249TrrewswhPucgq connective tissue disease (20 sources)Synovitis/tenosynovitis - multiple joints; Translations: [Other synovitis and tenosynovitis, unspecified ankle and foot]Onset: 08-07-2015 66-01-0194RqtznrfcYemrn connective tissue disease (20 sources)Synovitis and tenosynovitis, unspecified; Translations: [Tenosynovitis of foot and ankle]Onset: 189938-18-0053EykufsgbTsknh connective tissue disease (20 sources)Synovitis of joint of foot; Translations: [Synovitis and tenosynovitis, unspecified]Onset: 812563-43-4345FcgffgwuWznyp connective tissue disease (20 sources)Other synovitis and tenosynovitis, unspecified ankle and foot; Translations: [Tenosynovitis of footand ankle]Onset: 08-07-2015 Resolved: 703047-65-8740LutyxrqcEhjsj connective tissue disease (20 sources)Synovitis; Translations: [Synovitis and tenosynovitis, unspecified] Onset: 10-14-2017 Resolved: 827675-32-8598YdygvcwzGqiau connective tissue disease (20 sources)Tenosynovitis of foot and ankle; Translations: [Synovitis of right foot]Onset: 989540-91-4608EzktimcxVdlih connective tissue disease (20 sources)Pain in right foot; Translations: [Pain in right foot]Onset: 581172-55-6737HnehxekfDhbxe connective tissue disease (1 source)Pain in right foot; Translations: [Pain in right foot]Onset: 58-73-0971QemkonjlBvsmv connective tissue disease (1 source)Pain in left foot; Translations: [Pain in left foot]Onset: 02-01-2025 EpisodicOther diseases of kidney and ureters (20 sources)Abnormal renal function; Translations: [Disorder of kidney and ureter, unspecified]Onset: 318540-71-8887InwpmuheGbqds diseases of veins and lymphatics (2 sources)Varicose veins of other specified sites; Translations: [Varices of other sites]Onset: 504627-73-0463HvxciutiMyrma endocrine disorders (20 sources)Hyperparathyroidism; Translations: [Hyperparathyroidism, unspecified]Onset: 06-11-2022 Resolved: 92-67-7107RvqpwtoGadfz eye disorders (20 sources)Disorder of cornea; Translations: [Unspecified disorder of cornea] Onset: 347971-92-6974QwnbzlhyWxkqt gastrointestinal disorders (1 source)Personal history of other diseases of the digestive system; Translations: [PERSONAL HX OTH DZ DIGESTIVE SYSTEM]Onset: 27-88-5711Awfrwqrd Other lower respiratory disease (20 sources)Dyspnea; Translations: [Shortness of breath]Onset: 08-05-2024 28-88-4908LtchutfmCfsif lower respiratory disease (2 sources)Shortness of breath; Translations: [Shortness of breath]Onset: 94-42-4415OeouqcqvAfzcf lower respiratory disease (1 source)CoughOnset: 28-88-1318WnqugjioWvcio nutritional; endocrine; and metabolic disorders (6 sources)Body mass index 30+ - obesity; Translations: [Body mass index (BMI) 39.0-39.9, adult]Onset: 08-05-2024 Resolved: 293737-65-3116EnvcdpaPgmey screening for suspected conditions (not mental disorders or infectious disease) (1 source)Encounter for screening mammogram for malignant neoplasm of breast; Translations: [Encounter for screening mammogram for malignant neoplasm of breast]Onset: 66-25-2528TitoxzrqBiivx skin disorders (1 source)Finding of head and neck region; Translations: [Localized swelling, mass and lump, head]93-03-3738ZwkgsoywStwmo skin disorders (1 source)Localized swelling, mass and lump, head; Translations: [Localized swelling, mass and lump, head]Onset: 40-70-5436VlpbrgicZfwsc upper respiratory disease (20 sources)Edema of larynx; Translations: [Edema of larynx]Onset: 06-10-2017 75-76-5439AoleftxiZgbwl upper respiratory disease (20 sources)Bleeding from nose; Translations: [Epistaxis]Onset: 03-21-2024 55-59-5317GhhukiavRllic upper respiratory disease (4 sources)Epistaxis; Translations: [Epistaxis]Onset: 09-49-6785FtddoqbiZhlpl upper respiratory disease (1 source)Pain in throatOnset: 67-30-6504XdrvxumbOyeuh upper respiratory infections (4 sources)Viral upper respiratory tract infection; Translations: [Acute upper respiratory infection, unspecified]Onset: 381619-46-5168NaxvvsluArkailjfo; thrombophlebitis and thromboembolism (20 sources)Acute deep venous thrombosis of upper extremity; Translations: [Acute embolism and thrombosis of deep veins of left upper extremity]Onset: 484532-31-5864BhtszxgyFmaprscn codes; unclassified (20 sources)Edema; Translations: [Edema, unspecified]Onset: EpisodicResidual codes; unclassified (19 sources)Never smoked any substance; Translations: [Other specified health status]Onset: 649066-68-6541VdhnnzkwVbolptzh codes; unclassified (2 sources)Other specified health status; Translations: [Other specified health status]Onset: 85-25-6477IbqdtwelXdnegqw and strains (3 sources)Sprain of right foot; Translations: [Unspecified sprain of right foot, initial encounter]Onset: 673068-32-3996NjorhrdgZyylzvzrqqnk (8 sources)Never smoked tobacco; Translations: [Never a smoker]Unclassified (15 sources)Onset: 09-17-2023 Resolved: 261395-77-7958Iuvgtekkorbd (1 source)Patient encounter -10-4531Jhawhpygyljq (2 sources)Sprain of right wvky71-76-5261Ytycphwkdoeu (1 source)Aneurysm of the ascending aorta, without rupture; Translations: [Aneurysm of the ascending aorta, without rupture]Onset: 86-19-4380Elzntaedolmh (1 source)Thoracic aortic aneurysm, without rupture, unspecified (CMS-HCC); Translations: [Thoracic aortic aneurysm, without rupture, unspecified (CMS-HCC)] Onset: 21-12-8649Zkdrqlkpwsjs (1 source)Other ventricular tachycardia; Translations: [Other ventricular tachycardia]Onset: 46-47-3356Qaukl infection (20 sources)Herpes zoster; Translations: [Zoster without complications]Onset: 999934-31-5025Ltpocfhy Results Test NameValueInterpretationReference RangeFacilityCBC panel Auto (Bld)on 89-86-4911Unqhltsddxj distribution width (RBC) [Ratio]14.1 %Pokwgc72.5-15.[address] [facility] Hospitalment on above:Order Comment: Specimen Type: BLOOD SPECIMENOrdering Facility: [facility] Address:[address] [place], [place] [address]Performed By: #### 62237-1 ####[facility] [id number] [place] [address] [place] Hematocrit (Bld) [Volume fraction]46.4 %High36.0-46.0[facility] Comment on above:Order Comment: Specimen Type: BLOOD SPECIMENOrdering Facility: [facility] Address:[address] [place] [address] Performed By: #### 11276-3 ####[facility] LABIA [id number] [place] [address] [place] AMERICAHemoglobin (Bld) [Mass/Vol]15.1 g/fJJxsjfn63.5-15.5CMarietta [facility] on above: Order Comment: Specimen Type: BLOOD SPECIMENOrdering Facility: [facility] Address:[address] [place], [place] [address]Performed By: #### 75848- 2 ####[facility] LABCLIA [id number] [address] (RBC) [Entitic mass]33.1 zxKjocvf75.0-34.0 [facility] on above:Order Comment: Specimen Type: BLOOD SPECIMENOrdering Facility: [facility] Address:[address] [place], [place] [address]Performed By: #### 13226-3 ####[facility] [id number] [address] (RBC) [Mass/Vol]32.5 g/gVZyrjpo98.5-36.0[facility] RehabilitationComment on above:Order Comment: Specimen Type: BLOOD SPECIMENOrdering Facility: [facility] Address:[address] [place], [place] [address]Performed By: #### 91929-0 ####[facility] [id number] [address] (RBC) [Entitic vol]101.8 fL High80.0-100.0[facility] on above:Order Comment: Specimen Type: BLOOD SPECIMENOrdering Facility: [facility] Address:[address] [place], [place] [address]Performed By: #### 02467-1 ####[facility] [id number] [address] RBC (Bld) [#/Vol]10*3/uLNormal<0.01[facility] Comment on above:Order Comment: Specimen Type: BLOOD SPECIMENOrdering Facility: [facility] Address:[address] [place] [address] Performed By: #### 74550-0 ####[facility] LABCLIA [id number] [address] PRICE STREETPlatelet mean volume (Bld) [Entitic vol]11.0 fLNormal9.0-12.7CMarietta Osteopathic Clinic on above:Order Comment: Specimen Type: BLOOD SPECIMENOrdering Facility: [facility] Address:[address] [place], [place] [address]Performed By: #### 11950-8 ####[facility] LABCLIA [id number] [place] [id number] [facility] TUSCALOOSAPlatelets (Bld) [#/Vol]231 10*3/eISpaycl229-622 [facility] on above:Order Comment: Specimen Type: BLOOD SPECIMENOrdering Facility: [facility] Address:[address] [place], [place] [address]Performed By: #### 33504-8 ####[facility] LABCLIA [id number] [address]RB (d) [#/Vol]4.56 10*6/uLNormal3.90-5.20[facility] on above: Order Comment: Specimen Type: BLOOD SPECIMENOrdering Facility: [facility] Address:[address] [place], [place] [address]Performed By: #### 66213- 2 ####[facility] LABCLIA [id number] [address]W (d) [#/Vol]5.91 10*3/uLNormal3.70-11.00 [facility] on above:Order Comment: Specimen Type: BLOOD SPECIMENOrdering Facility: [facility] Address:[address] [place], [place] [address]Performed By: #### 69708-9 ####[facility] LABCLIA [id number] [address] SerPl-cCncon 38-31-4957JU [Catalytic activity/Vol]130 U/NTmtvyw41-706JbbukpzfmRiverside Methodist Hospital on above:Order Comment: Specimen Type: BLOOD SPECIMENOrdering Facility: [facility] Address:[address] [place], [place] [address]Performed By: #### 25022-9, 2157-01 ####[facility] LABCLIA [id number] [place] [id number] [facility] Comprehensive metabolic 2000 panelon 92-24-5831Jbqecku [Mass/Vol]4.1 g/dLNormal 3.9-4.9CMarietta Osteopathic Clinic on above:Order Comment: Specimen Type: BLOOD SPECIMENOrdering Facility: [facility] Address:[address] [place], [place] [address]Performed By: #### 10716-6, 2157-01 ####[facility] LABCLIA [id number] [place] [address] [place] AMERICAALP [Catalytic activity/Vol]106 U/WXmiiyr16-876XgwvedkkyCleveland Clinic [facility] Comment on above:Order Comment: Specimen Type: BLOOD SPECIMENOrdering Facility: [facility] Address:[address] [place] [address] Performed By: #### 30009-6, 2157-01 ####[facility] LABCLIA [id number] [place] [address] [place] AMERICAALT [Catalytic activity/Vol]36 U/LNormal7-38[facility] on above:Order Comment: Specimen Type: BLOOD SPECIMENOrdering Facility: [facility] Address:[address] [place], [place] [address]Performed By: #### 89815-1, 2157-01 ####[facility] LABCLIA [id number] [place] [id number] [place] AMERICAAnion gap [Moles/Vol]11 mmol/L Normal8-15[facility] on above:Order Comment: Specimen Type: BLOOD SPECIMENOrdering Facility: [facility] Address:[address] [place], [place] [address]Performed By: #### 27887-7, 2157-01 ####[facility] LABCLIA [id number] [place] [id number] [place] AMERICAAST [Catalytic activity/Vol]31 U/QNlzpxr10-02MgragqqtzRiverside Methodist Hospital on above:Order Comment: Specimen Type: BLOOD SPECIMENOrdering Facility: [facility] Address:[address] [place], [place] [address]Performed By: #### 32462-3, 2157-01 ####[facility] LABCLIA [id number] [place] [address] [place] Bilirubin [Mass/Vol]0.7 mg/dLNormal0.2-1.3CMari[facility] on above:Order Comment: Specimen Type: BLOOD SPECIMENOrdering Facility: [facility] Address:[address] [place], [place] [address]Performed By: #### 74559-1, 2157-01 ####[facility] LABCLIA [id number] [place] [address] [place] AMERICACalcium [Mass/Vol]9.4 mg/dL Normal8.5-10.2CMarietta [facility] on above:Order Comment: Specimen Type: BLOOD SPECIMENOrdering Facility: [facility] Address:[address] [place], [place] [address]Performed By: #### 85713-8, 2157-01 ####[facility]CLIA [id number] [place] [address] [place] AMERICAChloride [Moles/Vol]105 mmol/YPhgnww86-416HqjwnvwayRiverside Methodist Hospital on above:Order Comment: Specimen Type: BLOOD SPECIMENOrdering Facility: [facility] Address:[address] [place], [place] [address]Performed By: #### 88329-5, 2157-01 ####[facility] LABCLIA [id number] [place] [address] [place] AMERICACO2 [Moles/Vol]26 mmol/QKtvzdo85-03OtvwlhixpRiverside Methodist Hospital on above:Order Comment: Specimen Type: BLOOD SPECIMENOrdering Facility: [facility] Address:[address] [place], [place] [address]Performed By: #### 35409- 8, 2157-01 ####[facility] LABCLIA [id number] [place] [id number] [place] [facility] HOSPITALCreatinine [Mass/Vol]0.95 mg/dLNormal 0.58-0.96[facility] on above:Order Comment: Specimen Type: BLOOD SPECIMENOrdering Facility: [facility] Address:[address] [place], [place] [address]Performed By: #### 33645-4, 2157-01 ####[facility] LABCLIA [id number] [place] [address] [place] AMERICAeGFRcr SerPlBld CKD-EPI 902716 mL/min/1.73m???Normal>=60 [facility] on above:Order Comment: Specimen Type: BLOOD SPECIMENOrdering Facility: [facility] Address:[address] [place], [place] [address]Result Comment: Estimated Glomerular Filtration Rate (eGFR) is calculated using the 2020 CKD-EPI creatinine equation. This equation utilizes serum creatinine, sex, and age as parameters. The creatinine assay has traceable calibration to isotope dilution-mass spectrometry. Refer to KDIGO guidelines for clinical interpretation. In patients with unstable renal function, e.g. those with acute kidney injury, the eGFR may not accurately reflect actual GFR.Performed By: #### 53475-9, 2157-01 ####[facility] [id number] [place] [id number] [place] Glucose [Mass/Vol]95 mg/vWZteegd62-50IspkzhrtkRiverside Methodist Hospital on above: Order Comment: Specimen Type: BLOOD SPECIMENOrdering Facility: [facility] Address:[address] [place], [place] [address]Result Comment: The [place] [employer] (ADA) provides guidance for cutoff [...] Standards of Medical Care in Diabetes 2016, [place] [employer]. Diabetes Care. 2016.39(Suppl 1).Performed By: #### 99591-6, 2157-01 ####[facility] [id number] [place] [address] [place] Potassium [Moles/Vol]4.2 mmol/LNormal3.7-5.1CKettering Memorial Hospitalment on above:Order Comment: Specimen Type: BLOOD SPECIMENOrdering Facility: [facility] Address:[address] [place], [place] [address]Performed By: #### 85936-3, 2157-01 ####[facility]CL[facility] [id number] [place] [address] [place] AMERICAProtein [Mass/Vol]6.1 g/dLLow 6.3-8.0[facility] on above:Order Comment: Specimen Type: BLOOD SPECIMENOrdering Facility: [facility] Address:[address] [place], [place] [address]Performed By: #### 04842-4, 2157-01 ####[facility] LABIA [id number] [place] [address] [place] [facility]ARE OF AMERICASodium [Moles/Vol]142 mmol/RXlyolv326-000ByaruicdqCleveland Clinic Children'S Hospital For Rehabilitation Comment on above:Order Comment: Specimen Type: BLOOD SPECIMENOrdering Facility: [facility] Address:[address] [place] [address] Performed By: #### 46525-5, 2157-01 ####[facility] LABCLIA [id number] [place] [id number] [place] OF AMERICAUrea nitrogen [Mass/Vol]26 mg/dLHigh7-21[facility] on above: Order Comment: Specimen Type: BLOOD SPECIMENOrdering Facility: [facility] Address:[address] [place], [place] [address]Performed By: #### 35196- 8, 2157-6 ####[facility] LABIA [id number] [place] [address] [place] OF AMERICACNOVon 67-42-8503ORWNRinshiEnqnvxjky Clinic ClevelandXR FOOT 3V AP/LAT/OBL RTon 31-55-4684WQ FOOT 3V AP/LAT/OBL RT NormalCleveland Clinic Children'S Hospital For RehabilitationCNOVon 16-40-6074BBZNTgjnlvOqwymztbh Clinic ClevelandHISTORY PHYSICALon 42-27-6019BCQNGEZ PHYSICALNormalCOhioHealth Hardin Memorial HospitalCNOVon 74-15-3890XIKWNibqezJhagjbsjz Clinic ClevelandProt/Creat Uron 33-15-7365Xfarbyn/Creatinine (U) [Mass ratio]0.16 mg/mgHigh<0.15[facility] on above:Order Comment: Specimen Type: URINE SPECIMENOrdering Facility: [facility] Address:[address] [place], [place] [address]Result Comment: Adult Proteinuria Categories:<0.15 mg/mg is considered normal to mildly increased0.15 - 0.50 mg/mg is considered moderately increased>0.50 mg/mg is considered severely increasedKDIGO. (2013). KDIGO 2012 Clinical Practice Guideline for the Evaluation and Management of Chronic Kidney Disease. Official Journal of the International Society of Nephrology, 3(1), 1-150.Performed By: #### 2890-2 ####[facility] LABCLIA [id number] [place] [id number] [place] Protein/Creatinine (U) [Mass ratio]on 20-37-0241Iiqwlxfjtd (U) [Mass/Vol]86.5 mg/vQLqlsur09.0-300.0[facility] on above:Order Comment: Specimen Type: URINE SPECIMENOrdering Facility: [facility] Address:[address] [place], [place] [address]Performed By: #### 2890-2 ####[facility] LABCLIA [id number] [facility]ALK [address], [place] [address] [place] AMERICAProtein (U) [Mass/Vol]14 mg/dL Normal0-20[facility] on above:Order Comment: Specimen Type: URINE SPECIMENOrdering Facility: [facility] Address:[address] [place], [place] [address]Performed By: #### 2890-2 ####[facility] LABCLIA [id number] [address] [place] [address] [place] OF AMERICAUrinalysis complete panel (U)on 01-47-6126KVYZAFOS UL >9821HighNegativeR[facility]ide [facility] on above:Order Comment: Specimen Type: URINE SPECIMENOrdering Facility: [facility] Address:[address] [place], [place] [address]Performed By: #### 16283-3 ####[facility] LABCLIA [id number] [address] [place] [address] [place] AMERICABilirubin Ql (U)NegativeNormal NegativeRiverside Methodist Hospital on above:Order Comment: Specimen Type: URINE SPECIMENOrdering Facility: [facility] Address:[address] [place], [place] [address]Performed By: #### 28298-8 ####[facility] LABCLIA [id number] [address] [place] [address] [place] AMERICAClarity (Unsp spec)ClearNormalClearRiverside [facility] Hospital on above:Order Comment: Specimen Type: URINE SPECIMENOrdering Facility: [facility] Address:[address] [place], [place] [address]Performed By: #### 35676-8 ####[facility] LABCLIA [id number] [address] [place] [address] [place] Color (U)Dark YellowAbnormalYellowRiverside Methodist Hospital on above: Order Comment: Specimen Type: URINE SPECIMENOrdering Facility: [facility] Address:[address] [place], [place] [address]Performed By: #### 08120- 8 ####[facility] LABCLIA [id number] [address], [place] [address] [place] OF AMERICAEpithelial cells LM.HPF (Urine sed) [#/Area]ModerateNormalCMarietta Osteopathic Clinic on above:Order Comment: Specimen Type: URINE SPECIMENOrdering Facility: [facility] Address:[address] [place], [place] [address]Performed By: #### 69997- 8 ####[facility] LABIA [id number] [place] [id number] [place] OF AMERICAGlucose Test strip (U) [Mass/Vol] NegativeNormalNegativeR[facility] on above:Order Comment: Specimen Type: URINE SPECIMENOrdering Facility: [facility] Address:[address] [place], [place] [address]Performed By: #### 78032-2 ####[facility] LABIA [id number] [place] [address] [place] AMERICAHemoglobin Ql (U)NegativeNormal NegativeRiverside [facility] Hospital on above:Order Comment: Specimen Type: URINE SPECIMENOrdering Facility: [facility] Address:[address] [place], [place] [address]Performed By: #### 19534-4 ####[facility] LABIA [id number] [place] [id number] [place] OF AMERICAHyaline casts (Urine sed) [#/Area]1-3 /LPFAbnormal0 /LPF [facility] on above:Order Comment: Specimen Type: URINE SPECIMENOrdering Facility: [facility] Address:[address] [place], [place] [address]Performed By: #### 55236-6 ####[facility] LABIA [id number] [address], [facility]95 [place] OF AMERICAKetones Ql (U)NegativeNormalNegativeR[facility] on above:Order Comment: Specimen Type: URINE SPECIMENOrdering Facility: [facility] Address:[address] [place], [place] [address]Performed By: #### 91448-5 ####[facility] LABCLIA [id number] [address], [facility]95 [place] [facility] MEDICAL CENTERLeukocyte esterase Test strip Ql (U)1+AbnormalNegativeCleveland Clinic Children'S Hospital For RehabilitationComment on above: Order Comment: Specimen Type: URINE SPECIMENOrdering Facility: [facility] Address:[address] [place], [place] [address]Performed By: #### 25989- 8 ####[facility] LABIA [id number] [address], [facility]95 [place] AMERICANitrite Ql (U)PositiveAbnormal NegativeRiverside [facility] Hospital on above:Order Comment: Specimen Type: URINE SPECIMENOrdering Facility: [facility] Address:[address] [place], [place] [address]Performed By: #### 54639-9 ####[facility] LABIA [id number] [address], [facility]95 [place] AMERICApH (U)6.0 [pH]Normal5.0-8.0[facility] Comment on above:Order Comment: Specimen Type: URINE SPECIMENOrdering Facility: [facility] Address:[address] [place] [address] Performed By: #### 72230-4 ####[facility] LABCLIA [id number] [address] [place] [address] [place] Protein (U) [Mass/Vol]NegativeNormalNegativeR[facility] on above:Order Comment: Specimen Type: URINE SPECIMENOrdering Facility: [facility] Address:[address] [place], [place] [address]Performed By: #### 41551-6 ####[facility] LABIA [id number] [place] [address]ETRBC LM.HPF (Urine sed) [#/Area]0-2 /HPFNormal0-2 /HPFRiverside Methodist Hospital on above:Order Comment: Specimen Type: URINE SPECIMENOrdering Facility: [facility] Address:[address] [place], [place] [address]Performed By: #### 15490- 8 ####[facility] [id number] [address] STATES OF MIAMI VALLEY HOSPITALSpecific gravity (U) [Rel density]1.579Ygaktt1.005-1.030[facility] on above:Order Comment: Specimen Type: URINE SPECIMENOrdering Facility: [facility] Address:[address] [place], [place] [address]Performed By: #### 91044- 8 ####[facility] [id number] [address]ETUrobilinogen Ql (U)0.2 EU/dL Normal0.2-1.0 EU/dLRiverside Methodist Hospital on above:Order Comment: Specimen Type: URINE SPECIMENOrdering Facility: [facility] Address:[address] [place], [place] [address]Performed By: #### 37766-7 ####[facility] [id number] [address] STATES OF MIAMI VALLEY HOSPITALWBC LM.HPF (Urine sed) [#/Area]6- 10 /HPFAbnormal0-5 /HPFRiverside Methodist Hospital on above:Order Comment: Specimen Type: URINE SPECIMENOrdering Facility: [facility] Address:[address] [place], [place] [address]Performed By: #### 77617-7 ####[facility] LABIA [id number] [place] [address] [place] AMERICA16 [address] Streetl-Tyler Memorial Hospitalon 05-24-2025 Complement C3 [Mass/Vol]185 mg/uIKyiz51-817CpljlgydtRiverside [facility] Hospital on above:Order Comment: Specimen Type: BLOOD SPECIMENOrdering Facility: [facility] Address:[address] [place], [place] [address]Performed By: #### 4498-2, 4485-9, 91375-2 ####[facility] LABCLIA [id number] [address] [place] [address] [place] AMERICAC4 SerPl-mCnc on 04-40-0585Xavwmcrorj C4 [Mass/Vol]27 mg/lMBcolbq05-92TvfaccptsRiverside [facility] Hospital on above:Order Comment: Specimen Type: BLOOD SPECIMENOrdering Facility: [facility] Address:[address] [place], [place] [address]Performed By: #### 4498-2, 4485-9, 47652-9 ####[facility] LABCLIA [id number] [place] [id number] [place] [facility]AM[facility] VALLEY HOSPITALCB W Auto Differential panel (Bld)on 83-08-5749Rognebvoq (Bld) [#/Vol]0.05 10*3/uLNormal<0.11CMarietta Osteopathic Clinic on above:Order Comment: Specimen Type: BLOOD SPECIMENOrdering Facility: [facility] Address:[address] [place], [place] [address]Performed By: #### 47811- 8 ####[facility] LABCLIA [id number] [address] [address] [place] AMERICABasophils/100 WBC (Bld)0.7 % NormalRiverside Methodist Hospital on above:Order Comment: Specimen Type: BLOOD SPECIMENOrdering Facility: [facility] Address:[address] [place], [place] [address]Performed By: #### 60712-3 ####[facility] LABCLIA [id number] [address] [address] [place] AMERICADifferential cell count method Nom (Bld)AutoNormalClevelSt. Elizabeth Hospital on above:Order Comment: Specimen Type: BLOOD SPECIMENOrdering Facility: [facility] Address:[address] [place], [place] [address]Performed By: #### 75580-0 ####[facility] LABCLIA [id number] [place] [address] [place] AMERICAEosinophils (Bld) [#/Vol]0.16 10*3/uLNormal<0.46[facility] on above:Order Comment: Specimen Type: BLOOD SPECIMENOrdering Facility: [facility] Address:[address] [place], [place] [address]Performed By: #### 48115-8 ####[facility] LABIA [id number] [place] [address] [place] Eosinophils/100 WBC (Bld)2.1 %NormalRiverside Methodist Hospital on above: Order Comment: Specimen Type: BLOOD SPECIMENOrdering Facility: [facility] Address:[address] [place], [place] [address]Performed By: #### 34398- 8 ####[facility] LABIA [id number] [place] [address] [place] AMERICAErythrocyte distribution width (RBC) [Ratio]14.0 %Eunnkd48.5-15.0[facility] on above: Order Comment: Specimen Type: BLOOD SPECIMENOrdering Facility: [facility] Address:[address] [place], [place] [address]Performed By: #### 46362- 8 ####[facility] LABIA [id number] [place] [id number] [place] AMERICAHematocrit (Bld) [Volume fraction]40.7 %Xddist33.0-46.0[facility] on above:Order Comment: Specimen Type: BLOOD SPECIMENOrdering Facility: [facility] Address:[address] [place], [place] [address]Performed By: #### 45082- 8 ####[facility] LABCLIA [id number] [place] [address] [place] AMERICAHemoglobin (Bld) [Mass/Vol]13.9 g/qQMzoqrw32.5-15.5CMarietta Osteopathic Clinic on above:Order Comment: Specimen Type: BLOOD SPECIMENOrdering Facility: [facility] Address:[address] [place], [place] [address]Performed By: #### 84965-6 ####[facility] LABIA [id number] [place] [address] [place] AMERICAImmature granulocytes (Bld) [#/Vol]0.05 10*3/uLNormal<0.10[facility] on above:Order Comment: Specimen Type: BLOOD SPECIMENOrdering Facility: [facility] Address:[address] [place], [place] [address]Performed By: #### 47083- 8 ####[facility] LABIA [id number] [place] [address] [place] AMERICAImmature granulocytes/100 WBC (Bld)0.7 %NormalRiverside Methodist Hospital on above:Order Comment: Specimen Type: BLOOD SPECIMENOrdering Facility: [facility] Address:[address] [place], [place] [address]Performed By: #### 52933-8 ####[facility] LABIA [id number] [place] [address] [place] AMERICALymphocytes (Bld) [#/Vol]1.04 10*3/uLNormal1.00-4.00[facility] on above:Order Comment: Specimen Type: BLOOD SPECIMENOrdering Facility: [facility] Address:[address] [place], [place] [address]Performed By: #### 73533-9 ####[facility] LABIA [id number] [place] [address] [place] AMERICALymphocytes/100 WBC (Bld)13.9 % NormalRiverside Methodist Hospital on above:Order Comment: Specimen Type: BLOOD SPECIMENOrdering Facility: [facility] Address:[address] [place], [place] [address]Performed By: #### 93253-8 ####[facility] LABIA [id number] [place] [address] [place] AMERICAMCH (RBC) [Entitic mass]32.3 amYlaixq69.0-34.0[facility] on above:Order Comment: Specimen Type: BLOOD SPECIMENOrdering Facility: [facility] Address:[address] [place], [place] [address]Performed By: #### 31630-2 ####[facility] LABIA [id number] [place] [address] [place] MCHC (RBC) [Mass/Vol]34.2 g/iHKdspvn73.5-36.0[facility] on above:Order Comment: Specimen Type: BLOOD SPECIMENOrdering Facility: [facility] Address:[address] [place] [address] Performed By: #### 75930-3 ####[facility] LABIA [id number] [place] [address] [place] MCV (RBC) [Entitic vol]94.7 aHBocuhf71.0-100.0[facility] on above:Order Comment: Specimen Type: BLOOD SPECIMENOrdering Facility: [facility] Address:[address] [place] [address] Performed By: #### 46604-0 ####[facility] LABIA [id number] [place] [address] [place] Monocytes (Bld) [#/Vol]0.97 10*3/uLHigh<0.87[facility] on above:Order Comment: Specimen Type: BLOOD SPECIMENOrdering Facility: [facility] Address:[address] [place], [place] [address]Performed By: #### 54217-0 ####[facility] LABCLIA [id number] [place] [address] [place] AMERICAMonocytes/100 WBC (Bld)13.0 %NormalRiverside Methodist Hospital on above:Order Comment: Specimen Type: BLOOD SPECIMENOrdering Facility: [facility] Address:[address] [place], [place] [address]Performed By: #### 53624-4 ####[facility] LABCLIA [id number] [place] [address] [place] AMERICANeutrophils (Bld) [#/Vol]5.20 10*3/uLNormal1.45-7.50[facility] on above:Order Comment: Specimen Type: BLOOD SPECIMENOrdering Facility: [facility] Address:[address] [place], [place] [address]Performed By: #### 67806-9 ####[facility] LABIA [id number] [place] [address] [place] AMERICANeutrophils/100 WBC (Bld)69.6 % NormalRiverside Methodist Hospital on above:Order Comment: Specimen Type: BLOOD SPECIMENOrdering Facility: [facility] Address:[address] [place], [place] [address]Performed By: #### 85102-2 ####[facility] LABCLIA [id number] [place] [address] [place] AMERICANucleated RBC (Bld) [#/Vol]10*3/uLNormal<0.01[facility] on above:Order Comment: Specimen Type: BLOOD SPECIMENOrdering Facility: [facility] Address:[address] [place], [place] [address]Performed By: #### 95658-5 ####[facility] LABCLIA [id number] [place] [address] [place] Nucleated RBC/100 WBC (Bld) [Ratio]0.0 /100 WBCNormalCOhioHealth Hardin Memorial Hospital Comment on above:Order Comment: Specimen Type: BLOOD SPECIMENOrdering Facility: [facility] Address:[address] [place] [address] Performed By: #### 73422-1 ####[facility] LABIA [id number] [place] [address] [place] Platelet mean volume (Bld) [Entitic vol]10.5 fLNormal9.0-12.7COhioHealth Hardin Memorial HospitalComment on above:Order Comment: Specimen Type: BLOOD SPECIMENOrdering Facility: [facility] Address:[address] [place], [place] [address]Performed By: #### 40148-9 ####[facility] LABCLIA [id number] [place] [address] [place] Platelets (Bld) [#/Vol]229 10*3/yYTblwoj309-071OqgdiexqgCleveland Clinic Children'S Hospital For RehabilitationComment on above:Order Comment: Specimen Type: BLOOD SPECIMENOrdering Facility: [facility] Address:[address] [place] [address] Performed By: #### 36940-5 ####[facility] LABIA [id number] [place] [address] [place] RBC (Bld) [#/Vol]4.30 10*6/uLNormal3.90-5.20[facility] on above:Order Comment: Specimen Type: BLOOD SPECIMENOrdering Facility: [facility] Address:[address] [place], [place] [address]Performed By: #### 65333-9 ####[facility] LABCLIA [id number] [place] [address] [place] AMERICAWBC (Bld) [#/Vol]7.47 10*3/uLNormal3.70-11.00[facility] on above:Order Comment: Specimen Type: BLOOD SPECIMENOrdering Facility: [facility] Address:[address] [place], [place] [address]Performed By: #### 57286-9 ####[facility] LABCLIA [id number] [address] [address] [place] AMERICACNOVon 57-01-8816NPILBrzkrd [facility] Boardman Hospitalprehensive metabolic 2000 panelon 29-18-9559Terkpbb [Mass/Vol]4.0 g/dLNormal3.9-4.9CMarietta Osteopathic Clinic on above:Order Comment: Specimen Type: BLOOD SPECIMENOrdering Facility: [facility] Address:[address] [place], [place] [address]Performed By: #### 4498- 2, 4485-9, 35369-6 ####[facility] LABCLIA [id number] [place] [id number] [place] AMERICAALP [Catalytic activity/Vol]112 U/YRvuhpy38-089DguqqlojjRiverside [facility] Hospital on above:Order Comment: Specimen Type: BLOOD SPECIMENOrdering Facility: [facility] Address:[address] [place], [place] [address]Performed By: #### 4498- 2, 4485-9, 30319-9 ####[facility] LABCLIA [id number] [place] [id number] [place] AMERICAALT [Catalytic activity/Vol]30 U/LNormal7-38[facility] on above:Order Comment: Specimen Type: BLOOD SPECIMENOrdering Facility: [facility] Address:[address] [place], [place] [address]Performed By: #### 4498- 2, 4485-9, 76651-3 ####[facility] LABCLIA [id number] [address] [address] [place] AMERICAAnion gap [Moles/Vol]11 mmol/LNormal8-15[facility] on above:Order Comment: Specimen Type: BLOOD SPECIMENOrdering Facility: [facility] Address:[address] [place], [place] [address]Performed By: #### 4498- 2, 4485-9, ####[facility] LABCLIA [id number] [place] [id number] [place] AMERICAAST [Catalytic activity/Vol]24 U/ZCvruxv41-59UfptknehuRiverside [facility] Hospital on above:Order Comment: Specimen Type: BLOOD SPECIMENOrdering Facility: [facility] Address:[address] [place], [place] [address]Performed By: #### 4498- 2, 4485-9, ####[facility] LABCLIA [id number] [place] [id number] [place] AMERICABilirubin [Mass/Vol]0.6 mg/dLNormal0.2-1.3CMarietta Osteopathic Clinic on above:Order Comment: Specimen Type: BLOOD SPECIMENOrdering Facility: [facility] Address:[address] [place], [place] [address]Performed By: #### 4498- 2, 4485-9, ####[facility] LABCLIA [id number] [place] [id number] [place] AMERICACalcium [Mass/Vol]9.4 mg/dLNormal8.5-10.2CMarietta Osteopathic Clinic on above: Order Comment: Specimen Type: BLOOD SPECIMENOrdering Facility: [facility] Address:[address] [place], [place] [address]Performed By: #### 4498- 2, 4485-9, ####[facility] LABCLIA [id number] [address] [address] [place] AMERICAChloride [Moles/Vol]105 mmol/RTmlduw74-019FugrqswloRiverside [facility] Hospital on above: Order Comment: Specimen Type: BLOOD SPECIMENOrdering Facility: [facility] Address:[address] [place], [place] [address]Performed By: #### 4498- 2, 4485-9, 06121-8 ####[facility] LABCLIA [id number] [place] [id number] [place] AMERICACO2 [Moles/Vol] 25 mmol/FBhjxyx27-44VctlgeijxRiverside [facility] Hospital on above:Order Comment: Specimen Type: BLOOD SPECIMENOrdering Facility: [facility] Address:[address] [place], [place] [address]Performed By: #### 4498-2, 4485-9, ####[facility] LABIA [id number] [place] [id number] [place] AMERICACreatinine [Mass/Vol] 1.08 mg/dLHigh0.58-0.96[facility] on above:Order Comment: Specimen Type: BLOOD SPECIMENOrdering Facility: [facility] Address:[address] [place], [place] [address]Performed By: #### 4498-2, 4485-9, ####[facility] LABIA [id number] [place] [id number] [place] AMERICAeGFRcr SerPlBld CKD- EPI 320620 mL/min/1.73m???Low>=60[facility] on above: Order Comment: Specimen Type: BLOOD SPECIMENOrdering Facility: [facility] Address:[address] [place], [place] [address]Result Comment: Estimated Glomerular Filtration Rate (eGFR) is [...] reflect actual GFR.Performed By: #### 4498-2, 4485-9, 96547-6 ####[facility] LABIA [id number] [address] [address] [place] AMERICAGlucose [Mass/Vol]92 mg/aILrrpjg94-45QaotpdzrzCleveland Clinic Children'S Hospital For RehabilitationComment on above:Order Comment: Specimen Type: BLOOD SPECIMENOrdering Facility: [facility] Address:[address] [place], [place] [address]Result Comment: The [place] [employer] (ADA) provides guidance for cutoff [...] Standards of Medical Care in Diabetes 2016, [place] [employer]. Diabetes Care. 2016.39(Suppl 1). Performed By: #### 4498-2, 4485-9, 56742-0 ####[facility] LABIA [id number] [address] [address] [place] AMERICAPotassium [Moles/Vol]4.5 mmol/LNormal3.7-5.1COhioHealth Hardin Memorial Hospital Comment on above:Order Comment: Specimen Type: BLOOD SPECIMENOrdering Facility: [facility] Address:[address] [place] [address] Performed By: #### 4498-2, 4485-9, 03981-3 ####[facility] [id number] [address] [address] [place] AMERICAProtein [Mass/Vol]6.3 g/dLNormal6.3-8.0[facility] For RehabilitationCommclaren bay region on above:Order Comment: Specimen Type: BLOOD SPECIMENOrdering Facility: [facility] Address:[address] [place] [address] Performed By: #### 4498-2, 4485-9, 44703-9 ####[facility] LABCLIA [id number] [place] [id number] [place] [facility] VAL[facility] HOSPITALSodium [Moles/Vol]141 mmol/NUmqmba978-867BkupoojufCleveland Clinic [facility]'S [facility] For [facility] Comment on above:Order Comment: Specimen Type: BLOOD SPECIMENOrdering Facility: [facility] Address:[address] [place] [address] Performed By: #### 4498-2, 4485-9, 68727-1 ####[facility] LABCLIA [id number] [place] [address] [place] OF AMERICAUrea nitrogen [Mass/Vol]29 mg/dLHigh7-21[facility] Comment on above:Order Comment: Specimen Type: BLOOD SPECIMENOrdering Facility: [facility] Address:[address] [place] [address] Performed By: #### 4498-2, 4485-9, ####[facility] LABCLIA [id number] [place] [address] [place] OF AMERICADNA ANTIBODY DS BLDon 29-15-1840MJF ANTIBODY7 IU/mLNormal<=200[facility] For RehabilitationComment on above:Order Comment: Specimen Type: BLOOD SPECIMENOrdering Facility: [facility] Address:[address] [place], [place] [address]Result Comment: Negative: <200 IU/mLEquivocal: 201-300 IU/mLModerate Positive: 301-800 IU/mLStrong Positive: >801 IU/mLPerformed By: #### DNAAB ####[facility] LABCLIA [id number] [place] [address] [place] AMERICADNA ANTIBODY QUALITATIVE INTERPRETATIONNegativeNormalNegativeCleveland Clinic [facility] Comment on above:Order Comment: Specimen Type: BLOOD SPECIMENOrdering Facility: [facility] Address:[address] [place] [address] Performed By: #### DNAAB ####[facility] LABCLIA [id number] [place] [address] [place] OF AMERICACNOVon 07-95-9536BHOEUmwbraXxwkwepfqParkview Health Bryan HospitalXR FOOT 3V AP/LAT/OBL RTon 61-00-1077RL FOOT 3V AP/LAT/OBL RTNormalCOhioHealth Hardin Memorial HospitalCNOVon 76-36-3684ZSMWSqfpzaQtwmosebv Clinic ClevelandCNPNon 58-68-0630IQRELqntvr [facility] For RehabilitationCNOVon 04-97-7796LGEEKmsqik Visit (ORFWHP) JESUS WOLF ([id number]) 1955 F Date Time Provider Department 04/18/25 [...] reports 300 mg by mouth daily - biezajg-gkbicbzcx-qlynwdf D3 500 mg-5 mcg (200 unit) per tablet Take 1 tablet by mouth three times daily. - MV with Jvn-Phynkaou-Sdxnao (CENTRUM SILVER) 0.4 mg-300 mcg- 250 mcg [...] right foot [M65.971] 02/03/2017 (more content not included)...[facility] JESUS WOLF ([id number]) 1955 F Date Time Provider Department 04/18/25 [...] [M14.60] Order(s):XR FOOT GENERAL 3V AP/LAT/OBL RIGHT [9264161] Order #: [id number] FUTURE CONSULT TO PHYSICAL THERAPY [9032] Order #: [id number]: 1 FUTURE Prescriptions as of 04/18/2025 - [...] reports 300 mg by mouth daily - rllznqe-znnhcreuq-wriqjjo D3 500 mg-5 mcg (200 unit) per tablet Take 1 tablet by mouth three times daily. 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 (more content not included)...NormalFairview HospitalCNPNon 45-88-5580ONEDTjtlvbXlrpcxxmyMadison Health metabolic 2000 panelon 31-52-9393Vxqsf gap [Moles/Vol]9 mmol/LNormal8-15Lutheran HospitalComment on above:Order Comment: Specimen Type: BLOOD SPECIMEN [facility] Address: [address] [place], [place] [address]Performed By: #### 59211-9 #### [facility] CLIA [id number] [address] [place], [place] [address] [place] AMERICACalcium [Mass/Vol]8.9 mg/dLNormal 8.5-10.2Lutheran HospitalComment on above:Order Comment: Specimen Type: BLOOD SPECIMEN [facility] Address: [address] [place], [place] [address]Performed By: #### 88264-9 #### [facility] CLIA [id number] [address] [place] [address] [place] AMERICAChloride [Moles/Vol]107 mmol/LNormal 98-107Lutheran HospitalComment on above:Order Comment: Specimen Type: BLOOD SPECIMEN [facility] Address: [address] [place], [place] [address]Performed By: #### 54093-2 #### [facility] CLIA [id number] [address] [place] [address] [place] AMERICACO2 [Moles/Vol]25 mmol/ASqiwwe95-52 Taoist HospitalComment on above:Order Comment: Specimen Type: BLOOD SPECIMEN [facility] Address: [address] [place], [place] [address]Performed By: #### 22504-8 #### [facility] CLIA [id number] [address] [place], [place] [address] [place] AMERICACreatinine [Mass/Vol]0.95 mg/dL Normal0.58-0.96Lutheran HospitalComment on above:Order Comment: Specimen Type: BLOOD SPECIMEN [facility] Address: [address] [place], [place] [address]Performed By: #### 62533-6 #### [facility] CLIA [id number] [address] [place], [place] [address] [place] OF AMERICAeGFRcr SerPlBld CKD-EPI 711003 mL/min/1.73m???Normal>=60Lutheran HospitalComment on above:Order Comment: Specimen Type: BLOOD SPECIMEN [facility] Address: [address] [place], [place] [address]Result Comment: Estimated Glomerular Filtration Rate (eGFR) is [...] not accurately reflect actual GFR.Performed By: #### 48543-3 #### [facility] CLIA [id number] [address] [place], [place] [address] [place] OF AMERICAGlucose [Mass/Vol]125 mg/tSXrsa65-18 [facility]itt[facility] HospitalComment on above:Order Comment: Specimen Type: BLOOD SPECIMEN [facility] Address: [address] [place], [place] [address]Result Comment: The [place] Diabetes Association (ADA) provides guidance for cutoff [...] Standards of Medical Care in Diabetes 2016, [place] [employer]. Diabetes Care. 2016.39(Suppl 1).Performed By: #### 52432-3 #### [facility] [place] [id number] [address] [place], [place] [address] [place] OF AMERICAPotassium [Moles/Vol]5.1 mmol/L Normal3.7-5.1LSamaritan North Health CenterCommclaren bay region on above:Order Comment: Specimen Type: BLOOD SPECIMEN [facility] Address: [address] [place] [address]Performed By: #### 62716-1 #### [facility] CLIA [id number] [address] [place] [address] [place] AMERICASodium [Moles/Vol]141 mmol/LNormal 136-144[facility] HospitalComment on above:Order Comment: Specimen Type: BLOOD SPECIMEN [facility] Address: [address] [place], [place] [address]Performed By: #### 61456-5 #### [facility] CLIA [id number] [address] [place], [place] [address] [place] AMERICAUrea nitrogen [Mass/Vol]21 mg/dL Normal7-21[facility] HospitalComment on above:Order Comment: Specimen Type: BLOOD SPECIMEN [facility] Address: [address] [place], [place] [address]Performed By: #### 81201-7 #### [facility] IA [id number] [address] [place] [address] [place] AMERICACBC panel Auto (Bld)on 04-04-2025 Erythrocyte distribution width (RBC) [Ratio]13.4 %Omwafs96.5-15.0[facility] HospitalComment on above:Order Comment: Specimen Type: BLOOD SPECIMEN [facility] Address: [address] [place], [place] [address]Performed By: #### 30493-1 #### [facility] IA [id number] [address] [place] [address] [place] AMERICAHematocrit (Bld) [Volume fraction] 37.8 %Gymmow35.0-46.0[facility] HospitalComment on above:Order Comment: Specimen Type: BLOOD SPECIMEN [facility] Address: [address] [place], [place] [address]Performed By: #### 00804-6 #### [facility] IA [id number] [address] [place] [address] [place] AMERICAHemoglobin (Bld) [Mass/Vol]12.5 g/dL Zcppjh33.5-15.5[facility] HospitalComment on above:Order Comment: Specimen Type: BLOOD SPECIMEN [facility] Address: [address] [place], [place] [address]Performed By: #### 07034-7 #### [facility] CLIA [id number] [address] [place] [address] (RBC) [Entitic mass]33.0 pg Lhfhyu29.0-34.0Lutheran HospitalComment on above:Order Comment: Specimen Type: BLOOD SPECIMEN [facility] Address: [address] [place], [place] [address]Performed By: #### 06234-9 #### [facility] IA [id number] [address] [place] [address] (RBC) [Mass/Vol]33.1 g/dLNormal 30.5-36.0Lutheran HospitalComment on above:Order Comment: Specimen Type: BLOOD SPECIMEN [facility] Address: [address] [place], [place] [address]Performed By: #### 33598-4 #### [facility] IA [id number] [address] [place] [address] (RBC) [Entitic vol]99.7 fLNormal 80.0-100.0Lutheran HospitalComment on above:Order Comment: Specimen Type: BLOOD SPECIMEN [facility] Address: [address] [place], [place] [address]Performed By: #### 10048-4 #### [facility] IA [id number] [address] [place] [address] RBC (Bld) [#/Vol]0.02 10*3/uLHigh<0.01Lutheran HospitalComment on above:Order Comment: Specimen Type: BLOOD SPECIMEN [facility] Address: [address] [place], [place] [address]Performed By: #### 74869-5 #### [facility] IA [id number] [address] [place], [place] [address]Platelet mean volume (Bld) [Entitic vol]10.4 fLNormal9.0-12.7[facility] hospitalan HospitalComment on above:Order Comment: Specimen Type: BLOOD SPECIMEN [facility] Address: [address] [place], [place] [address]Performed By: #### 58156-0 #### [facility] CLIA [id number] [address] [place] [address] AMERICAPlatelets (Bld) [#/Vol]167 10*3/uL Pdcrch041-500Urvvssxl HospitalComment on above:Order Comment: Specimen Type: BLOOD SPECIMEN [facility] Address: [address] [place], [place] [address]Performed By: #### 45928-7 #### [facility] CLIA [id number] [address] [place], [place] [address]RBC (Bld) [#/Vol]3.79 10*6/uLLow 3.90-5.20[facility] HospitalComment on above:Order Comment: Specimen Type: BLOOD SPECIMEN [facility] Address: [address] [place], [place] [address]Performed By: #### 28646-7 #### [facility] CLIA [id number] [address] [place], [place] [address]WBC (Bld) [#/Vol]14.25 10*3/uLHigh 3.70-11.00[facility] HospitalComment on above:Order Comment: Specimen Type: BLOOD SPECIMEN [facility] Address: [address] [place], [place] [address]Performed By: #### 68712-7 #### [facility] CLIA [id number] [address] [place] [address] [facility] OF AMERICATHERAPY NTon 10-17-4873IFWAVVG NTHNO ID: [id number] Author: SRAVANI VARGAS, PT, DPT Service: Physical Therapy Author Type: Physical Therapist Type: Therapy (PT/OT/Speech/Resp) Filed: 04/04/2025 13:24 Note Text: Physical Therapy Evaluation Summary SERVICE DATE: 04/04/2025 SERVICE TIME: 1220 to 1239 ROOM: [place] [address] PT 6 Clicks Score: 18 Total Joint Replacement Discharge Readiness: Not Applicable DISCHARGE RECOMMENDATIONS Home Recommended Discharge Disposition Comments: Pt had prehab session [facility] STRATEGIST. Pt and family feel comfortable returning home. Declined need for mobility assessment. States that she has been transferring to[facility]from [facility] with walker while inhouse. [...] Wheeled, Commode- 3 in 1, Wheelchair- Manual, Facilities Technician PRIOR FUNCTIONAL LEVEL Within Functional Limits [...] Wolf DATE: April 04, 2025 TIME: 1:23 [facility] NTHNO ID: [id number] Author: CHAPINCITO LEON OTR/Vinicio Service: Occupational Therapy Author Type: Occupational Therapist Type: Therapy (PT/OT/Speech/Resp) Filed: 04/04/2025 13:10 Note Text: OCCUPATIONAL THERAPY MISSED VISIT SERVICE DATE: 04/04/2025 SERVICE TIME: 1308 ROOM: [place] [address] Patient not seen due to Clinical Appropriateness. Per PT, pt declined OT d/t know needs and has all necessary equipment for home. D/C OT services. SIGNATURE: JODY Arcos/Vinicio PATIENT NAME: Jesus Wolf DATE: April 04, 2025 TIME: 1:09 [facility] SystemAN[facility] POSTPROC EVALon 70-72-2201MBPE POSTPROC EVALHNO ID: [id number] Author: SURENDRA MONTEMAYOR MD Service: Anesthesiology Author Type: Anesthesiologist Type: Anesthesia Postprocedure Evaluation Filed: 04/03/2025 13:27 Note Text: POST ANESTHESIA EVALUATION NOTE : 1955 Procedure Summary Date: 04/03/25 Room / Location: [place] [address] / OR Anesthesia Start: 916 Anesthesia Stop: [...] April 03, 2025 TIME: 1:27 PM CSN: [id number] [facility] Hospital PRE-OPon 70-62-1026SLYS PRE-OPHNO ID: [id number] Author: SURENDRA MONTEMAYOR MD Service: Anesthesiology Author [...] QUAL PROF TIME,SEPARATE PROCEDURE (Right: Foot) Location: [place] [address] / OR Surgeons: Aiden Hall MD Estimated [...] and consent discussed: yes. Patient / Responsible Constitution Party agrees to proceed: yes Patient / [...] 4 hours as needed for pain. - qenuxtd-tmtqjxllb-mrnhfgw D3 500 mg-5 mcg (200 unit) per tablet Take 1 tablet by mouth three times daily. - MV with Zaf-Mnsihxht-Qldcbo (CENTRUM SILVER) 0.4 mg-300 mcg- 250 mcg tab Take 1 tablet by mouth once daily. - atorvastatin (LIPITOR) 40 mg tablet Take 1 tablet by mouth once daily. - Bifidobacterium infantis (ALIGN ORAL) Take by mouth once daily. - belimumab (BENLYSTA INTRAVENOUS) Inject intravenously. Patient reports she receives infusion every 3 months (more content not included)...[facility] 61-48-8728ILCWQBGKVU ID: [id number] Author: ESPINOZA ROME MD Service: General Internal [...] TUNNEL RIGHT WRIST surgical correction COLONOSCOPY 05/10/2019 [facility]astro COLONOSCOPY GEN ANES 07/23/2020 Dr. Frances/Diverticulosis/Hemorrhoids/ Ulcerative Colitis/Rpt in 2 yrs. COLONOSCOPY SCREENING 03/2023 EGD EUS 01/11/2020 [facility] Gastro LASIK Right prior to 1999 MRI [...] 0859 04/03/25 1530 vte current anticoag therapy (hi,oh) 04/03/25 1530 pneumatic compression sleeve(s) (hi,pr) 04/03/25 1530 activity - mobilize patient ([place]) VTE Prophylaxis: VTE prophylaxis appropriate SIGNATURE: Espinoza Rome MD PATIENT NAME: Jesus Wolf DATE: (more content not included)...[facility] HospitalOPERATIVE NOon 04-96-7512IJHNTANXI NOHNO ID: [id number] Author: AIDEN HALL MD Service: Orthopaedic Surgery [...] diagnosis PROCEDURES: Right subtalar joint fusion - 92238 Right talonavicular joint fusion - 47447 Multiple midfoot fusion (first and second tarsometatarsal joints, medial naviculocuneiform joint) - 26898 Intra-operative use of fluoroscopy - 13684 SURGEONS: Aiden Hall MD ABRASIVE WORKER: Sravani Callejas MD (PGY-1) STAFF: Certified Drug Counselor: Nga Jiménez RN Physician Beck Operator: Shoaib Coyle PA-C; Percy Dent PA-C Scrub Person: Jose Mcrae ST ANESTHESIA: General See anesthesia report for details. ESTIMATED BLOOD LOSS: 50cc DRAINS: None TOTAL IV FLUIDS: See anesthesia report for details SPECIMENS: * No order type specified * IMPLANTS: Implant Name Type Inv. Item Serial No. Quality Review Trainer Lot No. LRB No. Used Action GRAFT BN AUGMENT INJ 3.0CC - [id number] Graft GRAFT BN AUGMENT INJ 3.0CC [place] [id number] Right 1 Implanted [employer] 5[employer] - [id number] Bone [employer] 5CC [employer] [id number] Right 1 Implanted EASYFUSE STAPLE 25X20 NITINOL 2-LEG Staple [employer] [id number] Right 1 Implanted PIN ORTHOLOC 1.4MM LARGE FIXATION TEMPORARY DISPOSABLE - [id number] Pin PIN ORTHOLOC 1.4MM LARGE FIXATION TEMPORARY DISPOSABLE [facility] Right 1 Non-Implant TACK CLAW II ORTHOLOC 3DI ORTHOPEDIC PLATE FOOT ANKLE DISPOSABLE - [id number] Pin TACK CLAW II ORTHOLOC 3DI ORTHOPEDIC PLATE FOOT ANKLE DISPOSABLE [facility] Right 2 Non-Implant PIN ORTHOLOC 3DI 1.4MM SMALL FIXATION TEMPORARY DISPOSABLE - [id number] Pin PIN ORTHOLOC 3DI 1.4MM SMALL FIXATION TEMPORARY DISPOSABLE [facility] Right 1 Non-Implant SCREW ORTHOLOC 3.5MM FULL THREAD PURPLE 16MM BONE 3DI TECHNOLOGY SELF - [id number] Screw SCREW ORTHOLOC 3.5MM FULL THREAD PURPLE 16MM BONE 3DI TECHNOLOGY SELF [facility] Right 1 Implanted SCREW ORTHOLOC 3DI 3.5MM FULL THREAD LOW PROFILE PURPLE 18MM BONE LOCK OVER - [id number] Screw SCREW ORTHOLOC 3DI 3.5MM FULL THREAD LOW PROFILE PURPLE 18MM BONE LOCK OVER [facility] Right 1 Implanted SCREW ORTHOLOC 3.5MM FULL THREAD PURPLE 20MM BONE 3DI TECHNOLOGY LOCK - [id number] Screw SCREW ORTHOLOC 3.5MM FULL THREAD PURPLE 20MM BONE 3DI TECHNOLOGY LOCK [facility] Right 1 Implanted SCREW ORTHOLOC 3.5MM FULL THREAD PURPLE 22MM BONE 3DI TECHNOLOGY POLYAXIAL - [id number] Screw SCREW ORTHOLOC 3.5MM FULL THREAD PURPLE 22MM BONE 3DI TECHNOLOGY POLYAXIAL [facility] Right 1 Implanted MEDIAL COLUMN FUSION PLATE LG ORTHOLOC 3DI PLATING - [id number] Plate MEDIAL COLUMN FUSION PLATE LG ORTHOLOC 3DI PLATING [facility] Right 1 Implanted SCREW ORTHOLOC 3.5MM FULL THREAD PURPLE 24MM BONE 3DI TECHNOLOGY SELF - [id number] Screw SCREW ORTHOLOC 3.5MM FULL THREAD PURPLE 24MM BONE 3DI TECHNOLOGY SELF [facility] Right 1 Implanted SCREW BONE 8MM 85MM ASNIS III TITANIUM FULLY THREADED CANNULATED SELF - [id number] Screw SCREW BONE 8MM 85MM ASNIS III TITANIUM FULLY THREADED CANNULATED SELF YAJAIRA Right 1 Implanted ORTHOLOC 3DI SCREW ABDULKADIR 3.5X26MM Screw [facility] Right 1 Implanted SCREW ANS3 25 THRD TI 8.0X 80 Screw YAJAIRA Right 1 Implanted 8.0 X 75MM TI CANNULATED SCREW - [id number] Screw 8.0 X 75MM TI CANNULATED SCREW YAJAIRA 1 Wasted BIT 2.5MM DRILL - [id number] Bit BIT 2.5MM DRILL [facility] 1 BIT ORTHOLOC 2.8MM 60MM DRILL 3DI TECHNOLOGY - [id number] Bit BIT ORTHOLOC 2.8MM 60MM DRILL 3DI TECHNOLOGY [facility] 1 SCREW ORTHOLOC 3DI 3.5MM BRONZE 38MM BONE LOW PROFILE SELF TAPPING THREADED - [id number] Screw SCREW ORTHOLOC 3DI 3.5MM BRONZE 38MM BONE LOW PROFILE SELF TAPPING THREADED [facility] Right 1 Implanted SCREW ORTHOLOC 3.5MM FULL THREAD LOW PROFILE BRONZE 40MM BONE 3DI - [id number] Screw SCREW ORTHOLOC 3.5MM FULL THREAD LOW PROFILE BRONZE 40MM BONE 3DI [facility] Right 1 Implanted COMPLICATIONS: None DISPOSITION: Stable [...] and even . OPERA (more content not included)...[facility] HospitalXR FOOT 2V AP/LAT RT on 45-45-5613VH FOOT 2V AP/LAT RT* * *Final Report* [...] Intraoperative examination for surgical planning and documentation. Cylinder Loader: MILLER Transcribe Date/Time: Apr 04 2025 8:35A Dictated by : SOPHIE WILSON DO This examination was interpreted and the report reviewed and electronically signed by: SOPHIE WILSON DO on Apr 04 2025 8:40AM EST [id number] 82-61-5384CERVGkkjak [facility] For RehabilitationHISTORY PHYSICALon 98-09-3567FAZCRKP PHYSICALNormal [facility] RehabilitationCNOVon 27-50-0692PEZSQvfnvnYhlfiypiu [facility] Large Joint Arthro/Inj: L knee jointon 60-00-3347BhrtcMary Childress MD 03/10/2025 9:49 AM Large Joint [...] these instructions. Informed Consent Consent Obtained: Written [place] Protocol A moment to CARE was completed. [...] the bedside nurse for hospitalized patients) applicable. [facility] 10-23-8435PZMKSnhkodGzacipruw Clinic Isqorltwt61([place])D3 [facility] Hospitalon 939946-rrkfhqsurpcpgv D3 [Mass/Vol]50.7 ng/uNDcmlpf01.0-80.0[facility] For RehabilitationComment on above:Order Comment: Specimen Type: BLOOD SPECIMENOrdering Facility: [facility] Address:[address] [place], [place] [address]Result Comment: Classification of 25 [place] Vitamin D status:Deficiency/Insufficiency: < or = 30 ng/m l.Sufficiency/Optimal Levels: 31-80 ng/mLToxicity: > 100 ng/mL.Test performed by chemiluminescent immunoassay.Performed By: #### 1989-3 ####[facility] LABCLIA [id number] [address] STATES [facility]AN MEDICAL CENTERCNPNon 80-92-6575UQWRQwgjxuCwrccrkye [facility] 0318319957cm 86-03-96407927885952WaubngTnakikibz Clinic ClevelandCNOVon 78-10-5391ONUGRjlvttUccskoyed Clinic ClevelandCNTHERAPYon 28-80-3093ILVNSNVTG NormalCleveland Clinic Children'S Hospital For RehabilitationCT FOOT WO IVCON RTon 02-37-1283CB FOOT WO IVCON RT* * *Final Report* * * DATE OF EXAM: Feb 01 2025 7:36AM [facility] 0074 - CT FOOT WO IVCON [...] AND POSTOPERATIVE CHANGES. ANKLE SOFT TISSUE EDEMA. Cylinder Loader: [facility]ITALHakan Transcribe Date/Time: Feb 01 2025 9:38A Dictated by : JAY OCAMPO MD This examination was interpreted and the report reviewed and electronically signed by: JAY OCAMPO MD on Feb 01 2025 1:44PM EST [id number]. 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 DEGENERATIVE AND POSTOPERATIVE CHANGES. ANKLE SOFT TISSUE EDEMA. Cylinder Loader: [facility] Transcribe Date/Time: Feb 01 2025 9:38A Dictated by : JAY OCAMPO MD This examination was interpreted and the report reviewed and electronically signed by: JAY OCAMPO MD on Feb 01 2025 1:44PM EST [facility]* * *Final Report* * * DATE OF EXAM: Feb 01 2025 7:36AM [facility] 0074 - CT FOOT WO IVCON [...] IMAGES: No significant additional findings. [facility] RADIOLOGYProvider, [facility] [place] - 02/01/2025 * * *Final Report* * * DATE OF EXAM: Feb 01 2025 7:36AM [facility] 0074 - CT FOOT WO IVCON [...] AND POSTOPERATIVE CHANGES. ANKLE SOFT TISSUE EDEMA. Cylinder Loader: [facility] Transcribe Date/Time: Feb 01 2025 9:38A Dictated by : JAY OCAMPO MD This examination was interpreted and the report reviewed and electronically signed by: JAY OCAMPO MD on Feb 01 2025 1:44PM EST [facility] HospitalRadiology Study observation (narrative)[facility] HospitalCT Foot - right WO contrastOrdered By: Ccf Provider on 85-35-5429Twlofgpoe ClinicCNPNon 03-69-5174BZFLKdqasmClhtutxuq Clinic ClevelandCNOVon 83-25-5283YNGBIdhyps [facility] RehabilitationCNOVon 68-46-5303ZJKBJzkyhlLlivxarqc [facility] CNOVon 00-07-9416ALEHArjxpuBkrklsdsc Clinic ClevelandXR FOOT 3V AP/LAT/OBL RTon 78-72-5731AV FOOT 3V AP/LAT/OBL RTNormalCOhioHealth Hardin Memorial HospitalXR Foot - right AP and Lateral [...] with calcaneal spurs unchanged. DIVISION OF RADIOLOGYProvider, [facility] - 01/19/2025 * * *Final Report* * [...] WITH PROGRESSIVE FINDINGS SUGGESTIVE OF CHARCOT ARTHROPATHY. Cylinder Loader: MILLER Transcribe Date/Time: Jan 19 2025 4:42P Dictated by : MIRTHA KENDRICK MD This examination was interpreted and the report reviewed and electronically signed by: MIRTHA KENDRICK MD on Jan 19 2025 4:45PM EST [facility] HospitalRadiology Study observation (narrative)[facility] Foot - right AP and Lateral and obliqueOrdered By: Ccf Provider on 54-82-1786Bvdkxkdao ClinicCNOV 41-60-8058PTOLVvstelLgdzohrayFort Hamilton Hospital 12-22-2024 CNOVNoOhioHealth 24-54-1073NOQJPhpeczHketwbdlvMercy Health St. Elizabeth Boardman HospitalXR FOOT 3V AP/LAT/OBL RTon 41-09-2361YL FOOT 3V AP/LAT/OBL RTNormal [facility] RehabilitationXR Foot - right AP and Lateral and obliqueon 16-88-9046DKHSHBTNSC: Navicular fracture. Soft tissue swelling. Postoperative and degenerative changes. Cylinder Loader: MILLER Transcribe Date/Time: Dec 21 2024 1:49P [...] No other significant abnormality. DIVISION OF RADIOLOGYProvider, [facility] - 12/21/2024 * * *Final Report* * [...] Soft tissue swelling. Postoperative and degenerative changes. Cylinder Loader: MILLER Transcribe Date/Time: Dec 21 2024 1:49P Dictated by : JAY OCAMPO MD This examination was interpreted and the report reviewed and electronically signed by: JAY OCAMPO MD on Dec 21 2024 4:03PM EST [facility] HospitalRadiology Study observation (narrative)[facility] ClinicXR Foot - right AP and Lateral and obliqueOrdered By: Ccf Provider on 72-10-1767Ilsxsobis ClinicCNPNon 10-78-5858PORBUrsqdtNdczkqldxWright-Patterson Medical CenterCNPNon 12-19-2024 CNPNNWright-Patterson Medical CenterXR Ankle - right 3 Viewson 12-19-2024 [facility] HospitalRad[facility] Study observation (narrative)[facility] Medical CenterUrtheCast SystemECG 12 Leadon 71-44-6238MWH revealed normal sinus rhythm, normal ECG.[facility] Work Phone: $ Arthrocentesison 67-84-8362PdhggmWojciech Treviño DO 11/28/2024 3:29 PM $ Arthrocentesis [...] vital signs reviewed and stableMANUALLY TRANSCRIBED RESULTS ProMedicMcKitrick HospitalCNPNon 37-43-9463KAXJXpzodxXqkpeowbi Clinic ClevelandC3 COMPLEMENTon 96-21-6995Tjtwohwmsc C3 [Mass/Vol]165 mg/dL86 - 166 mg/dLChad [place] [address] SerPl-mCncon 95-74-8319Pjbfjgzhqx C3 [Mass/Vol]165 mg/qBYmeiqj23-019 [facility] on above:Order Comment: Specimen Type: BLOOD SPECIMENOrdering Facility: [facility] Address:[address] [place], [place] [address]Performed By: #### 4485-9, 05504-0, 4498-2 ####[facility] LABCLIA [id number] [place] [address] [place] AMERICAC4 COMPLEMENTon 51-05-6433Sgsexpawrb C4 [Mass/Vol] 31 mg/dL13 - 46 mg/dLMatthew Ville [address] SerPl-mCncon 83-59-0418Nfhulktctg C4 [Mass/Vol]31 mg/aEFbnrzi98-91RhrxtwufiRiverside Methodist Hospital on above:Order Comment: Specimen Type: BLOOD SPECIMENOrdering Facility: [facility] Address:[address] [place], [place] [address]Performed By: #### 4485- 9, 14114-8, 4498-2 ####[facility] LABCLIA [id number] [place] [address] [place] AMERICACB W Auto Differential panel (Bld)on 41-61-0968Mimexspmt (Bld) [#/Vol]0.05 10*3/uLNormal <0.11CMarietta [facility]opathic [facility] on above:Order Comment: Specimen Type: BLOOD SPECIMENOrdering Facility: [facility] Address:[address] [place], [place] [address]Performed By: #### 01025-1 ####[facility] LABCLIA [id number] [place] [address] [place] AMERICABasophils/100 WBC (Bld)0.7 %NormalCleveland Clinic Children'S Hospital For Rehabilitation Comment on above:Order Comment: Specimen Type: BLOOD SPECIMENOrdering Facility: [facility] Address:[address] [place] [address] Performed By: #### 30921-2 ####[facility] LABCLIA [id number] [place] [address] [place] Differential cell count method Nom (Bld)AutoNormalClevelSelect Specialty Hospital - Greensboro Comment on above:Order Comment: Specimen Type: BLOOD SPECIMENOrdering Facility: [facility] Address:[address] [place] [address] Performed By: #### 03078-1 ####[facility] LABCLIA [id number] [place] [address] [place] Eosinophils (Bld) [#/Vol]0.22 10*3/uLNormal<0.46[facility] Comment on above:Order Comment: Specimen Type: BLOOD SPECIMENOrdering Facility: [facility] Address:[address] [place] [address] Performed By: #### 88479-2 ####[facility] LABCLIA [id number] [place] [address] [place] Eosinophils/100 WBC (Bld)3.0 %NormalCleveland Clinic Children'S Hospital For RehabilitationComment on above: Order Comment: Specimen Type: BLOOD SPECIMENOrdering Facility: [facility] Address:[address] [place], [place] [address]Performed By: #### 55992- 8 ####[facility] LABCLIA [id number] [place] [address] [place] AMERICAErythrocyte distribution width (RBC) [Ratio]13.5 %Zgowtf43.5-15.0C[facility] Clinic Children'S Hospital For RehabilitationComment on above: Order Comment: Specimen Type: BLOOD SPECIMENOrdering Facility: [facility] Address:[address] [place], [place] [address]Performed By: #### 25926- 8 ####[facility] LABCLIA [id number] [place] [address] [place] AMERICAHematocrit (Bld) [Volume fraction]46.3 %High36.0-46.0[facility] on above:Order Comment: Specimen Type: BLOOD SPECIMENOrdering Facility: [facility] Address:[address] [place], [place] [address]Performed By: #### 21682- 8 ####[facility] LABCLIA [id number] [place] [address] [place] AMERICAHemoglobin (Bld) [Mass/Vol]15.0 g/vBIjtxla99.5-15.5CMarietta Osteopathic Clinic on above:Order Comment: Specimen Type: BLOOD SPECIMENOrdering Facility: [facility] Address:[address] [place], [place] [address]Performed By: #### 12203-2 ####[facility] LABIA [id number] [place] [address] [place] AMERICAImmature granulocytes (Bld) [#/Vol]10*3/uLNormal<0.10[facility] on above:Order Comment: Specimen Type: BLOOD SPECIMENOrdering Facility: [facility] Address:[address] [place], [place] [address]Performed By: #### 36588- 8 ####[facility] LABIA [id number] [place] [address] [place] AMERICAImmature granulocytes/100 WBC (Bld)0.3 %NormalRiverside Methodist Hospital on above:Order Comment: Specimen Type: BLOOD SPECIMENOrdering Facility: [facility] Address:[address] [place], [place] [address]Performed By: #### 27432-0 ####[facility] LABCLIA [id number] [place] [address] [place] AMERICALymphocytes (Bld) [#/Vol]1.46 10*3/uLNormal1.00-4.00[facility] on above:Order Comment: Specimen Type: BLOOD SPECIMENOrdering Facility: [facility] Address:[address] [place], [place] [address]Performed By: #### 80827-2 ####[facility] LABIA [id number] [place] [address] [place] AMERICALymphocytes/100 WBC (Bld)20.2 % NormalRiverside Methodist Hospital on above:Order Comment: Specimen Type: BLOOD SPECIMENOrdering Facility: [facility] Address:[address] [place], [place] [address]Performed By: #### 47007-3 ####[facility] LABIA [id number] [place] [address] [place] AMERICAMCH (RBC) [Entitic mass]31.4 rfHqqzbr70.0-34.0[facility] on above:Order Comment: Specimen Type: BLOOD SPECIMENOrdering Facility: [facility] Address:[address] [place], [place] [address]Performed By: #### 57522-0 ####[facility] LABIA [id number] [place] [address] [place] MCHC (RBC) [Mass/Vol]32.4 g/pHCtwwox25.5-36.0[facility] on above:Order Comment: Specimen Type: BLOOD SPECIMENOrdering Facility: [facility] Address:[address] [place] [address] Performed By: #### 59709-9 ####[facility] LABIA [id number] [place] [address] [place] MCV (RBC) [Entitic vol]97.1 jDSwneka50.0-100.0[facility] on above:Order Comment: Specimen Type: BLOOD SPECIMENOrdering Facility: [facility] Address:[address] [place] [address] Performed By: #### 96277-6 ####[facility] LABCLIA [id number] [place] [address] [place] Monocytes (Bld) [#/Vol]0.84 10*3/uLNormal<0.87[facility] on above:Order Comment: Specimen Type: BLOOD SPECIMENOrdering Facility: [facility] Address:[address] [place] [address] Performed By: #### 05973-4 ####[facility] LABCLIA [id number] [address], [place] [address] [place] Monocytes/100 WBC (Bld)11.6 %NormalRiverside Methodist Hospital on above: Order Comment: Specimen Type: BLOOD SPECIMENOrdering Facility: [facility] Address:[address] [place], [place] [address]Performed By: #### 11030- 8 ####[facility] LABCLIA [id number] [place] [address] [place] AMERICANeutrophils (Bld) [#/Vol]4.65 10*3/uLNormal1.45-7.50[facility] on above:Order Comment: Specimen Type: BLOOD SPECIMENOrdering Facility: [facility] Address:[address] [place], [place] [address]Performed By: #### 12138-7 ####[facility] LABCLIA [id number] [place] [address] [place] AMERICANeutrophils/100 WBC (Bld)64.2 % NormalRiverside Methodist Hospital on above:Order Comment: Specimen Type: BLOOD SPECIMENOrdering Facility: [facility] Address:[address] [place], [place] [address]Performed By: #### 45959-7 ####[facility] LABCLIA [id number] [place] [address] [place] AMERICANucleated RBC (Bld) [#/Vol]10*3/uLNormal<0.01[facility] on above:Order Comment: Specimen Type: BLOOD SPECIMENOrdering Facility: [facility] Address:[address] [place], [place] [address]Performed By: #### 79930-6 ####[facility] LABIA [id number] [place] [address] [place] Nucleated RBC/100 WBC (Bld) [Ratio]0.0 /100 WBCNormalCOhioHealth Hardin Memorial Hospital Comment on above:Order Comment: Specimen Type: BLOOD SPECIMENOrdering Facility: [facility] Address:[address] [place] [address] Performed By: #### 79109-9 ####[facility] LABIA [id number] [place] [address] [place] Platelet mean volume (Bld) [Entitic vol]10.0 fLNormal9.0-12.7CMarietta Osteopathic Clinic on above:Order Comment: Specimen Type: BLOOD SPECIMENOrdering Facility: [facility] Address:[address] [place], [place] [address]Performed By: #### 59495-5 ####[facility] LABIA [id number] [place] [address] [place] Platelets (Bld) [#/Vol]272 10*3/oWQsqqlq824-314BoznpgchhRiverside Methodist Hospital on above:Order Comment: Specimen Type: BLOOD SPECIMENOrdering Facility: [facility] Address:[address] [place] [address] Performed By: #### 58848-7 ####[facility] LABIA [id number] [place] [address] [place] RBC (Bld) [#/Vol]4.77 10*6/uLNormal3.90-5.20[facility] on above:Order Comment: Specimen Type: BLOOD SPECIMENOrdering Facility: [facility] Address:[address] [place], [place] [address]Performed By: #### 35709-2 ####[facility] LABCLIA [id number] [place] [address] [place] AMERICAWBC (Bld) [#/Vol]7.24 10*3/uLNormal3.70-11.00[facility] on above:Order Comment: Specimen Type: BLOOD SPECIMENOrdering Facility: [facility] Address:[address] [place], [place] [address]Performed By: #### 31749-5 ####[facility] LABCLIA [id number] [place] [address] [place] AMERICACNOVon 90-07-7442MIJVHsxxnq [facility] Hospitalplement C3 [Mass/Vol]on 97-10-0201Xwpsbkbjaztrph and review of laboratory resultsNormalCPaulding County HospitalComplement C4 [Mass/Vol]on 37-60-3764Ysvqejvfvikiwo and review of laboratory resultsNormal [facility] Hospitalprehensive metabolic 2000 panelon 11-16-2024 Albumin [Mass/Vol]4.1 g/dLNormal3.9-4.9CMarietta [facility]opathic Clinic on above:Order Comment: Specimen Type: BLOOD SPECIMENOrdering Facility: [facility] Address:[address] [place], [place] [address]Performed By: #### 4485-9, 72084-0, 4498-2 ####[facility] LABCLIA [id number] [place] [address] [place] AMERICAALP [Catalytic activity/Vol]115 U/NPzykjn76-878JntkpkmixRiverside Methodist Hospital on above: Order Comment: Specimen Type: BLOOD SPECIMENOrdering Facility: [facility] Address:[address] [place], [place] [address]Performed By: #### 4485- 9, 75936-2, 4498-2 ####[facility] LABCLIA [id number] [address] [address] [place] AMERICAALT [Catalytic activity/Vol]45 U/LHigh7-38[facility] on above:Order Comment: Specimen Type: BLOOD SPECIMENOrdering Facility: [facility] Address:[address] [place], [place] [address]Performed By: #### 4485- 9, 99615-4, 4498-2 ####[facility] LABCLIA [id number] [place] [address] [place] AMERICAAnion gap [Moles/Vol]11 mmol/LNormal8-15[facility] on above:Order Comment: Specimen Type: BLOOD SPECIMENOrdering Facility: [facility] Address:[address] [place], [place] [address]Performed By: #### 4485- 9, 12674-7, 4498-2 ####[facility] LABCLIA [id number] [place] [address] [place] AMERICAAST [Catalytic activity/Vol]41 U/BOzyy57-75UmhuwwkpsRiverside Methodist Hospital on above:Order Comment: Specimen Type: BLOOD SPECIMENOrdering Facility: [facility] Address:[address] [place], [place] [address]Performed By: #### 4485- 9, 87788-9, 4498-2 ####[facility] LABCLIA [id number] [place] [id number] [place] AMERICABilirubin [Mass/Vol]0.5 mg/dLNormal0.2-1.3CMarietta Osteopathic Clinic on above:Order Comment: Specimen Type: BLOOD SPECIMENOrdering Facility: [facility] Address:[address] [place], [place] [address]Performed By: #### 4485- 9, 38816-9, 4498-2 ####[facility] LABCLIA [id number] [place] [id number] [place] AMERICACalcium [Mass/Vol]9.6 mg/dLNormal8.5-10.2CMarietta Osteopathic Clinic on above: Order Comment: Specimen Type: BLOOD SPECIMENOrdering Facility: [facility] Address:[address] [place], [place] [address]Performed By: #### 4485- 9, 38995-6, 4498-2 ####[facility] LABCLIA [id number] [place] [address] [place] AMERICAChloride [Moles/Vol]104 mmol/QZgdrxw75-938LahxslxrrRiverside Methodist Hospital on above: Order Comment: Specimen Type: BLOOD SPECIMENOrdering Facility: [facility] Address:[address] [place], [place] [address]Performed By: #### 4485- 9, 98932-0, 4498-2 ####[facility] LABCLIA [id number] [place] [address] [place] AMERICACO2 [Moles/Vol] 27 mmol/YQytnaf63-04ErfzrqzqzRiverside Methodist Hospital on above:Order Comment: Specimen Type: BLOOD SPECIMENOrdering Facility: [facility] Address:[address] [place], [place] [address]Performed By: #### 4485-9, 27887-1, 4498-2 ####[facility] LABIA [id number] [place] [id number] [place] AMERICACreatinine [Mass/Vol]1.04 mg/dL High0.58-0.96[facility] on above:Order Comment: Specimen Type: BLOOD SPECIMENOrdering Facility: [facility] Address:[address] [place], [place] [address]Performed By: #### 4485-9, 88624-9, 4498-2 ####[facility] LABCLIA [id number] [place] [id number] [place] AMERICACreatinine and Glomerular filtration rate.predicted panel (S/P/Bld)59 mL/min/1.73m???Low>=60[facility] on above:Order Comment: Specimen Type: BLOOD SPECIMENOrdering Facility: [facility] Address:[address] [place], [place] [address]Result Comment: Estimated Glomerular Filtration Rate (eGFR) is [...] accurately reflect actual GFR.Performed By: #### 4485-9, 62960-0, 4498-2 ####[facility] LABIA [id number] [place] [id number] [place] AMERICAGlucose [Mass/Vol]86 mg/fJNtcnwc77-89VtlwassayRiverside Methodist Hospital on above:Order Comment: Specimen Type: BLOOD SPECIMENOrdering Facility: [facility] Address:[address] [place], [place] [address]Result Comment: The [place] Diabetes [employer] (ADA) provides guidance for cutoff [...] Standards of Medical Care in Diabetes 2016, [place] [employer]. Diabetes Care. 2016.39(Suppl 1).Performed By: #### 4485-9, 44079-4, 4498-2 ####[facility] LABCLIA [id number] [address] [address] [place] AMERICAPotassium [Moles/Vol] 4.5 mmol/LNormal3.7-5.1[facility] ClevelandComment on above:Order Comment: Specimen Type: BLOOD SPECIMENOrdering Facility: [facility] Address:[address] [place], [place] [address]Performed By: #### 4485-9, 25426-3, 4498-2 ####[facility] LABCLIA [id number] [place] [address] [place] AMERICAProtein [Mass/Vol]6.4 g/dLNormal 6.3-8.0[facility] on above:Order Comment: Specimen Type: BLOOD SPECIMENOrdering Facility: [facility] Address:[address] [place], [place] [address]Performed By: #### 4485-9, 13121-1, 4498-2 ####[facility] LABIA [id number] [place] [address] [place] AMERICASodium [Moles/Vol]142 mmol/L Jbjpzk235-891OgcbpyphcRiverside Methodist Hospital on above:Order Comment: Specimen Type: BLOOD SPECIMENOrdering Facility: [facility] Address:[address] [place], [place] [address]Performed By: #### 4485-9, 92676-4, 4498-2 ####[facility] LABIA [id number] [place] [address] [place] AMERICAUrea nitrogen [Mass/Vol]15 mg/dL Normal7-21[facility] on above:Order Comment: Specimen Type: BLOOD SPECIMENOrdering Facility: [facility] Address:[address] [place], [place] [address]Performed By: #### 4485-9, 93876-2, 4498-2 ####[facility] LABIA [id number] [place] [id number] [place] AMERICADNA ANTIBODY DS BLDon 11-16-2024 DNA ANTIBODY4 IU/mLNormal<=200[facility] on above:Order Comment: Specimen Type: BLOOD SPECIMENOrdering Facility: [facility] Address:[address] [place] [id number] Comment: Negative: <200 IU/mLEquivocal: 201-300 IU/mLModerate Positive: 301-800 IU/mLStrong Positive: >801 IU/mLPerformed By: #### DNAAB ####[facility] LABIA [id number] [place] [address] [place] AMERICADNA ANTIBODY QUALITATIVE INTERPRETATIONNegativeNormalNegativeCleveland Clinic Children'S Hospital For RehabilitationComment on above:Order Comment: Specimen Type: BLOOD SPECIMENOrdering Facility: [facility] Address:[address] [place], [place] [address]Performed By: #### DNAAB ####[facility] [id number] [place] [address] [place] AMERICAProt/Creat Uron 51-41-1070Tghcxwq/Creatinine (U) [Mass ratio]0.14 mg/mg Normal<0.15[facility] Hospital For RehabilitationComment on above:Order Comment: Specimen Type: URINE SPECIMENOrdering Facility: [facility] Address:[address] [place], [place] [address]Result Comment: Adult Proteinuria Categories:<0.15 mg/mg is considered normal to mildly increased0.15 - 0.50 mg/mg is considered moderately increased>0.50 mg/mg is considered severely increasedK TONNYO. (2013). KDIGO 2012 Clinical Practice Guideline for the Evaluation and Management of Chronic Kidney Disease. Official Journal of the International Society of Nephrology, 3(1), 1-150.Performed By: #### 2890-2 ####[facility] LABIA [id number] [place] [address] [place] AMERICAProtein/Creatinine (U) [Mass ratio]on 11-16-2024 Creatinine (U) [Mass/Vol]107.4 mg/kKZeyfdw69.0-300.0[facility] Comment on above:Order Comment: Specimen Type: URINE SPECIMENOrdering Facility: [facility] Address:[address] [place] [address] Performed By: #### 2890-2 ####[facility] LABCLIA [id number] [address] [address] [place] Protein (U) [Mass/Vol]15 mg/dLNormal0-20[facility] on above:Order Comment: Specimen Type: URINE SPECIMENOrdering Facility: [facility] Address:[address] [place], [place] [address]Performed By: #### 2890-2 ####[facility] LABCLIA [id number] [address] [address] [place] AMERICAUrinalysis complete panel (U)on 23-20-6629UIADXJSG UL>9821HighNegativeCleveland Clinic Children'S [facility] Comment on above:Order Comment: Specimen Type: URINE SPECIMENOrdering Facility: [facility] Address:[address] [place] [address] Performed By: #### 31704-6 ####[facility] LABCLIA [id number] [address] [address] [place] Bilirubin Ql (U)NegativeNormalNegativeRiverside Methodist Hospital on above:Order Comment: Specimen Type: URINE SPECIMENOrdering Facility: [facility] Address:[address] [place], [place] [address]Performed By: #### 86063-4 ####[facility] LABCLIA [id number] [address] [address] [place] AMERICAClarity (Unsp spec) ClearNormalClearRiverside Methodist Hospital on above:Order Comment: Specimen Type: URINE SPECIMENOrdering Facility: [facility] Address:[address] [place], [place] [address]Performed By: #### 44864-8 ####[facility] LABCLIA [id number] [address] [place] [address] [place] AMERICAColor (U)YellowNormalYellow [facility] on above:Order Comment: Specimen Type: URINE SPECIMENOrdering Facility: [facility] Address:[address] [place], [place] [address]Performed By: #### 19814-3 ####[facility] LABCLIA [id number] [place] [address] [place] AMERICAEpithelial cells LM.HPF (Urine sed) [#/Area]FewNormalCMarietta Osteopathic Clinic on above:Order Comment: Specimen Type: URINE SPECIMENOrdering Facility: [facility] Address:[address] [place], [place] [address]Performed By: #### 15734-4 ####[facility] LABIA [id number] [address] OF [place] Glucose Test strip (U) [Mass/Vol]NegativeNormalNegativeRiverside Methodist Hospital on above:Order Comment: Specimen Type: URINE SPECIMENOrdering Facility: [facility] Address:[address] [place], [place] [address]Performed By: #### 02908-8 ####[facility] LABIA [id number] [place] [address] [place] Hemoglobin Ql (U)NegativeNormalNegativeRiverside Methodist Hospital on above:Order Comment: Specimen Type: URINE SPECIMENOrdering Facility: [facility] Address:[address] [place], [place] [address]Performed By: #### 86063-1 ####[facility] LABIA [id number] [place] [id number] [place] AMERICAHyaline casts (Urine sed) [#/Area]1-3 /LPFAbnormal0 /LPFCMarietta Osteopathic Clinic on above: Order Comment: Specimen Type: URINE SPECIMENOrdering Facility: [facility] Address:[address] [place], [place] [address]Performed By: #### 21719- 8 ####[facility] LABIA [id number] [place] [id number] [place] AMERICAKetones Ql (U)NegativeNormal NegativeRiverside Methodist Hospital on above:Order Comment: Specimen Type: URINE SPECIMENOrdering Facility: [facility] Address:[address] [place], [place] [address]Performed By: #### 98307-7 ####[facility] LABCLIA [id number] [address] [place] [address] [place] AMERICALeukocyte esterase Test strip Ql (U)1+AbnormalNegative [facility] on above:Order Comment: Specimen Type: URINE SPECIMENOrdering Facility: [facility] Address:[address] [place], [place] [address]Performed By: #### 12699-1 ####[facility] LABCLIA [id number] [address] STATES OF [facility] HOSPITALitrite Ql (U)PositiveAbnormalNegativeRiverside Methodist Hospital on above:Order Comment: Specimen Type: URINE SPECIMENOrdering Facility: [facility] Address:[address] [place] [address] Performed By: #### 08809-5 ####[facility] LABCLIA [id number] [place] [id number] [place] pH (U)5.5 [pH]Normal<8.5CMarietta Osteopathic Clinic on above:Order Comment: Specimen Type: URINE SPECIMENOrdering Facility: [facility] Address:[address] [place], [place] [address]Performed By: #### 64083- 8 ####[facility] LABCLIA [id number] [place] [id number] [place] [facility]OSPITALProtein (U) [Mass/Vol]Negative NormalNegativeRiverside Methodist Hospital on above:Order Comment: Specimen Type: URINE SPECIMENOrdering Facility: [facility] Address:[address] [place], [place] [address]Performed By: #### [id number] ####[facility] LABCLIA [id number] [place] [address] [place] [facility] HOSPITALRBC LM.HPF (Urine sed) [#/Area]0-2 /HPFNormal0-2 /HPF [facility] For RehabilitationCommclaren bay region on above:Order Comment: Specimen Type: URINE SPECIMENOrdering Facility: [facility] Address:[address] [place], [place] [address]Performed By: #### [id number] ####[facility] [id number] [place] [address] [place] OF AMERICASpecific gravity (U) [Rel density]1.292Chbwpq3.005-1.030[facility] For RehabilitationComment on above:Order Comment: Specimen Type: URINE SPECIMENOrdering Facility: [facility] Address:[address] [place], [place] [address]Performed By: #### [id number] ####[facility] [id number] [address] [facility] Urobilinogen Ql (U)0.2 EU/dLNormal0.2-1.0 EU/dLCleveland Clinic Children'S Hospital For RehabilitationCommclaren bay region on above:Order Comment: Specimen Type: URINE SPECIMENOrdering Facility: [facility] Address:[address] [place] [address] Performed By: #### [id number] ####[facility] [id number] [place] [address] [place] WBC LM.HPF (Urine sed) [#/Area]0-5 /HPFNormal0-5 /HPFCleveland Clinic Children'S Hospital For Rehabilitation Comment on above:Order Comment: Specimen Type: URINE SPECIMENOrdering Facility: [facility] Address:[address] [place] [address] Performed By: #### 21661-5 ####[facility] LABIA [id number] [address] STATES OF [place] CNOVon 52-62-2434YADNNuttxmHmzkycbsg Clinic ClevelandCNOVon 88-60-5192SUGWQyfbuv [facility] ClevelandHISTORY PHYSICALon 23-33-1059KKXOERS PHYSICALNormal [facility] Cletrinity health system east campusArterial blood standard base excess determination by calculationOrdered By: Yuriy Conway on 28-56-7505Jfgy excess standard Calc (BldA) [Moles/Vol]Arterial blood standard base excess determination by xglubnqsuix-7-8IvcktiizzPike Community HospitalBasic Metabolic Panelon 75-78-8230Lpvoo gap [Moles/Vol]19.7 mmol/LHigh6.0-15.0The [facility] Physician GroupComment on above:Performed By: #### BMP #### [place] [address] USACalcium [Mass/Vol]6.1 mg/dLOff scale low8.6-10.3The [facility] Physician GroupComment on above:Result Comment: Critical Result Called to and read back by: SUSAN PRATT at: 09/19/2024 09:27:53 by:[id number] PERFORMED BY: [place] [address] PATHOLOGIST [employer] ZHAO WORRELL M.D.Performed By: #### BMP #### [place] [address] USAChloride [Moles/Vol]107 mmol/XHvrpck34-786Mgu [facility] Physician GroupComment on above:Performed By: #### BMP #### [place] [address] USACO2 [Moles/Vol]9.4 mmol/LLow21.0-31.0The [facility] Physician GroupComment on above:Performed By: #### BMP #### [place] [address] USACreatinine [Mass/Vol]mg/dLLow0.60-1.20The [facility] Physician GroupComment on above:Result Comment: When the Creatinine is <0.20, the GFR is unable to be calculated.Performed By: #### BMP #### [place] [address] USAGlucose [Mass/Vol]28 mg/dLOff scale lfn58-291Zyc [facility] Physician GroupComment on above:Result Comment: Critical Result Called to and read back by: SUSAN PRATT at: 09/19/2024 09:27:53 by:[id number] Random Glucose Reference Range is dependent on time and content of last meal. Glucose of more than 200 mg/dL in a nonstressed, ambulatory subject supports the diagnosis of Diabetes Mellitus. ADA recommended reference rangePerformed By: #### BMP #### [facility] [address] [place] [address] USAPotassium [Moles/Vol]4.1 mmol/LNormal3.5-5.1The [facility] Physician GroupComment on above:Performed By: #### BMP #### [facility] [address] [place] [address] USASodium [Moles/Vol]132 mmol/HXqc497-451Lzz [facility] Physician [facility] CenterComment on above:Performed By: #### BMP #### [facility] [address] [place] [address] USAUrea nitrogen [Mass/Vol]12 mg/dLNormal7-25The [facility] Physician GroupComment on above:Performed By: #### BMP #### [facility] [address] [place] [address] USABasophils Auto (Bld) [#/Vol]Ordered By: Tobin Alvarez on 84-22-8751Ripkrlacw (Bld) [#/Vol]Automated basophil count0.0-0.2FPike Community HospitalBasophils/100 WBC Auto (Bld)Ordered By: Tobin Alvarez on 50-26-6990Shxeojioe/100 WBC (Bld)Automated basophil %.[facility] Medical CenterBlood carbon dioxide, total measurement by calculation (moles/volume)Ordered By: Yuriy Conway on 59-23-8880YG6 Calc (Bld) [Moles/Vol] Blood carbon dioxide, total measurement by calculation (moles/volume)23-29 [facility] Medical CenterCalcium [Mass/volume] in Serum or PlasmaOrdered By: Toibn Alvarez on 14-03-1754Kyqnzyg [Mass/Vol]Calcium [Mass/volume] in Serum or PlasmaCritically low8.6-10.3FPike Community HospitalComment on above:Critical Result Called to and read back by: SUSAN PRATT at: 09/19/2024 09:27:53 by:[id number] dioxide WBOrdered By: Yuriy Conway on 09-19-2024 Basophil percentageBasophil eqdatpwdzfUla27-265NqjwijxgjTrumbull Regional Medical Center Carbon dioxide, total [Moles/volume] in Serum or PlasmaOrdered By: Tobin Alvarez on 12-29-4537ZB7 [Moles/Vol]Carbon dioxide, total [Moles/volume] in Serum or FnujotJex48.0-31.0Tr[facility] Medical CenterChloride [Moles/volume] in Serum or PlasmaOrdered By: Tobin Alvarez on 15-52-7686Ggnyozkw [Moles/Vol] Chloride [Moles/volume] in Serum or Urkuis85-740FxiftvfvlTrumbull Regional Medical CenterComplete Blood Count Auto Diffon 33-76-6471Dabpaizbp (Bld) [#/Vol]0.0 10*3/uLNormal0.0-0.2The [facility] Healthcare Services GroupComment on above:Order Comment: REDRAWResult Comment: PERFORMED BY: [facility] [address] [place] [id number] PATHOLOGIST [employer] ZHAO WORRELL M.D.Performed By: #### CBC ####[address] [address] USABasophils/100 WBC (Bld)0.4 %Normal. The [facility] Physician GroupComment on above:Order Comment: REDRAWPerformed By: #### CBC ####[place] [address] [place] [address] USAEosinophils (Bld) [#/Vol]0.2 10*3/uLNormal0.0-0.45The [facility] Physician GroupComment on above:Order Comment: REDRAWPerformed By: #### CBC ####[address] [address] USAEosinophils/100 WBC (Bld)2.1 %Normal.The [facility] Physician GroupComment on above:Order Comment: REDRAWPerformed By: #### CBC ####[address] [address] USAErythrocyte distribution width (RBC) [Ratio]15.1 % Yubvel90.9-15.3The [facility] Physician GroupComment on above:Order Comment: REDRAWPerformed By: #### CBC ####[address] [address] USAHematocrit (Bld) [Volume fraction]41.7 %Normal 34.0-46.4The [facility] Physician GroupComment on above:Order Comment: REDRAW Performed By: #### CBC ####[address] [address] USAHemoglobin (Bld) [Mass/Vol]13.9 g/rPTowqta66.8-15.4 The [facility] Physician GroupComment on above:Order Comment: REDRAWPerformed By: #### CBC ####[address] [address] USALymphocytes (Bld) [#/Vol]1.2 10*3/uLNormal1.00-4.8The [facility] Physician GroupComment on above:Order Comment: REDRAWPerformed By: #### CBC ####[address] [address] USALymphocytes/100 WBC (Bld)14.0 %Normal.The [facility] Physician GroupComment on above:Order Comment: REDRAWPerformed By: #### CBC ####[address] [address] USAMCH (RBC) [Entitic mass]31.7 huMkttjj78.7-34.3The [facility] Physician GroupComment on above:Order Comment: REDRAWPerformed By: #### CBC ####[address] [place] [address] USAMCV (RBC) [Entitic vol]94.7 kLHhkpkn11-815Eow [facility] Comment on above:Order Comment: REDRAWPerformed By: #### CBC ####[address] [address] USAMean Corpuscular HGB Conc33.5 g/dSHeapjt29.0-35.0The [facility] Physician GroupComment on above:Order Comment: REDRAWPerformed By: #### CBC ####[address] [address] USAMonocytes (Bld) [#/Vol]1.0 10*3/uLHigh0.0-0.8 The [facility] Physician GroupComment on above:Order Comment: REDRAWPerformed By: #### CBC ####[address] [address] USAMonocytes/100 WBC (Bld)11.3 %Normal.The [facility] Physician GroupComment on above:Order Comment: REDRAWPerformed By: #### CBC ####[address] [address] USANeutrophils (Bld) [#/Vol]6.2 10*3/uL Normal1.8-7.7The [facility] Physician GroupComment on above:Order Comment: REDRAW Performed By: #### CBC ####[address] [address] USANeutrophils/100 WBC (Bld)72.2 %Normal.The [facility] Physician GroupComment on above:Order Comment: REDRAWPerformed By: #### CBC ####[address] [address] USANRBC% 0.2 /100{WBC}Normal0-0.5The [facility] Physician GroupComment on above:Order Comment: REDRAWPerformed By: #### CBC ####[address] [address] USAPlatelet mean volume (Bld) [Entitic vol]8.2 fL Normal6.3-10.7The [facility] Physician GroupComment on above:Order Comment: REDRAWPerformed By: #### CBC ####[address] [place] [place] [address] USAPlatelets (Bld) [#/Vol]237 10*3/jOTwbxif385-731Tfq [facility] Physician GroupComment on above:Order Comment: REDRAWPerformed By: #### CBC ####[address] [place] [address] USARBC (Bld) [#/Vol]4.40 10*6/uLNormal3.60-5.00The [facility] Comment on above:Order Comment: REDRAWPerformed By: #### CBC ####[address] [place] [address] USAWBC (Bld) [#/Vol]8.6 10*3/uLNormal3.8-11.6The [facility] Physician GroupComment on above:Order Comment: REDRAWPerformed By: #### CBC ####[place] [id number] USACreatinine [Mass/volume] in Serum or Plasma Ordered By: Tobin Alvarez on 56-10-9651Mcbfgqnbxc [Mass/Vol]Creatinine [Mass/volume] in Serum or PlasmaLow0.60-1.20[facility] Comment on above:When the Creatinine is <0.20, the GFR is unable to be calculated.ECG 12 lead ECGon 29-00-1316OUY 12 lead ECGADAMS [place] [address] Electrocardiograph Report Signed Patient: Jesus Wolf MR#: [id number] 1485 : 1955 Acct:[id number] Age/Sex: 69 / F ADM Date: 09/19/24 Loc: [place] Room: Type: [facility] Attending Dr: Yuriy Conway MD Ordering Provider: Yuriy Conway MD, [facility] Date of Service: 09/19/2411/08/801 ECG/ECG 12 [...] Signed By Aline Souza MD 0 09/19/[address] [place] [address] Physician [facility] CenterECH echo transesophageal TEEon 09-33-2270FLE echo transesophageal [facility]EEAD[facility] Main [place] [address] [place] [address] Echocardiogram Signed Patient: Jesus Wolf MR#: [id number] 1485 : 1955 Acct:[id number] Age/Sex: 69 / F ADM Date: 09/19/24 Loc: [place] Room: Type: [facility] Attending Dr: Yuriy Conway MD Ordering Provider: Yuriy Conway MD, [facility] Date of Service: 09/19/24/ ECH/ECH echo transesophageal PHYLLIS: Aortic Valve Stenosis. Copies to: Yuriy Conway MD, [facility] HR: 81 Reason For Study: S/P [...] Signed By: Yuriy Conway MD, FACC 09/19/24 1043[facility] Physician GroupEosinophils Auto (Bld) [#/Vol]Ordered By: Tobin Alvarez on 09-19-2024 Eosinophils (Bld) [#/Vol]Automated eosinophil count0.0-0.45[facility] Medical CenterEosinophils/100 WBC Auto (Bld)Ordered By: Tobin Alvarez on 20-03-1780Rmzohfecmic/100 WBC (Bld)Automated eosinophil %.[facility] Medical CenterErythrocyte distribution width Auto (RBC) [Ratio]Ordered By: Tobin Alvarez on 20-48-4743Vchmtbjgnfv distribution width (RBC) [Ratio] Erythrocyte distribution width [Ratio] by Automated count11.9-15.3FPike Community HospitalGlucose Glucometer (BldC) [Mass/Vol]Ordered By: Yuriy Conway on 29-97-5436Igrsefr [Mass/Vol]Capillary blood glucose measurement by glucometer (mass/volume)70-105Tr[facility] Regional Medical CenterGlucose [Mass/Vol]Capillary blood glucose measurement by glucometer (mass/volume) [facility] Medical CenterComment on above:Random Glucose Reference Range is dependent on time and content of last meal. Glucose of more than 200 mg/dL in a nonstressed, ambulatory subject supports the diagnosis of Diabetes Mellitus.Glucose Poct Glucometerson 68-05-2463Bgoinsy7Sdh1: Cleaned MeterNormal The [facility] Physician GroupComment on above:Result Comment: PERFORMED BY: [facility] [address] [place] [address] PATHOLOGIST [employer] ZHAO WORRELL M.D.Performed By: #### GLULS ####Point of Care testing, Glucose [Mass/Vol]79 mg/dLNoIredell Memorial Hospital Physician GroupComment on above: Result Comment: Random Glucose Reference Range is dependent on time and content of last meal. Glucose of more than 200 mg/dL in a nonstressed, ambulatory subject supports the diagnosis of Diabetes Mellitus.Performed By: #### GLULS ####Point of Care testing,Glucose [Mass/volume] in Serum or PlasmaOrdered By: Tobin Alvarez on 40-48-8913Artmwdo [Mass/Vol]Glucose [Mass/volume] in Serum or PlasmaCritically tct55-965PmxssbicvTrumbull Regional Medical CenterComment on above:Critical Result Called to and read back by: SUSAN PRATT at: 09/19/2024 09:27:53 by:[id number] recommended reference rangeRandom Glucose Reference Range is dependent on time and content of last meal. Glucose of more than 200 mg/dL in a nonstressed, ambulatory subject supports the diagnosis of Diabetes Mellitus.Hematocrit Auto (Bld) [Volume fraction]Ordered By: Tobin Alvarez on 81-63-0229Wbdnbwjcvl (Bld) [Volume fraction]Hematocrit [Volume Fraction] of Blood by Automated count34.0-46.4 [facility] Medical CenterHemoglobin Calc (Bld) [Mass/Vol]Ordered By: Yuriy Conway on 47-35-4126Bjkgiqxwrw (Bld) [Mass/Vol]Blood hemoglobin measurement by calculation (mass/volume)12.0-17.0[facility] Medical CenterHemoglobin [Mass/volume] in BloodOrdered By: Tobin Alvarez on 09-19-2024 Hemoglobin (Bld) [Mass/Vol]Hemoglobin [Mass/volume] in Blood11.8-15.4FPike Community HospitalISTAT ABGon 56-17-0639MU2 [Moles/Vol]27 mmol/AOtmuks44-48 The [facility] Physician GroupComment on above:Performed By: #### ISABG #### [facility] [address] [place] [address] USAGlucose [Mass/Vol]75 mg/dVZugoyf91-149Psm [facility] Physician GroupComment on above:Result Comment: PERFORMED BY: [place] [address] PATHOLOGIST [employer] ZHAO WORRELL M.D.Performed By: #### ISABG #### [facility] [address] [place] [address] USAHCO3 (Bld) [Moles/Vol]25.4 mmol/XRcvhur06.0-28.0The [facility] Physician GroupComment on above:Performed By: #### ISABG #### [facility] [address] [place] [address] USAHemoglobin (Bld) [Mass/Vol]13.9 g/yTXtjfzg08.0-17.0The [facility] Physician GroupComment on above:Performed By: #### ISABG #### [facility] [address] [place] [address] USAISTAT Base Excess1 mmol/LNormal-2 TO 3The [facility] Physician GroupComment on above:Performed By: #### ISABG #### [facility] [address] [place] [address] USAISTAT Ionized Calcium1.11 mol/LLow1.12-1.32The [facility] Physician GroupComment on above:Performed By: #### ISABG #### [facility] [address] [place] [address] USAISTAT OXG125.6 mm[Hg]Srkkme29-47Qex [facility] Physician GroupComment on above:Performed By: #### ISABG #### [facility] [address] [place] [address] USAISTAT Ph7.269Itzbra8.31-7.45The [facility] Comment on above:Performed By: #### ISABG #### [facility] [address] [place] [address] USAISTAT PO239 mm[Hg]Epe84-210Hlt [facility] Comment on above:Performed By: #### ISABG #### [facility] [address] [place] [address] USAOxygen saturation in Blood76 %Sbz07-50Nbu [facility] Physician GroupComment on above:Result Comment: Reference ranges reflect baseline specimens onlyPerformed By: #### ISABG #### [facility] [address] [place] [address] USAPotassium [Moles/Vol]4.4 mmol/LNormal3.5-4.9The [facility] Physician GroupComment on above:Performed By: #### ISABG #### [place] [address] USASodium [Moles/Vol]139 mmol/KXhocfr058-552Mwj [facility] Physician GroupComment on above:Performed By: #### ISABG #### [place] [address] USAISTAT ABGOrdered By: Yuriy Conway on 09-19-2024 Hematocrit (Bld) [Volume fraction]41.0 %Owjucs15.0-51.0[facility] Medical CenterComment on above:Performed By: #### ISABG #### [facility] [address] [place] [address] USALeukocytes [#/volume] corrected for nucleated erythrocytes in Blood by Automated counOrdered By: Tobin Alvarez on 14-12-8059XMT corrected for nucl RBC Auto (Bld) [#/Vol]Leukocytes [#/volume] corrected for nucleated erythrocytes in Blood by Automated coun3.8-11.6FPike Community Hospital Lymphocytes Auto (Bld) [#/Vol]Ordered By: Tobin Alvarez on 09-19-2024 Lymphocytes (Bld) [#/Vol]Lymphocytes [#/volume] in Blood by Automated count 1.00-4.8Tr[facility] Medical CenterLymphocytes/100 WBC Auto (Bld)Ordered By: Tobin Alvarez on 13-38-6229Onwvaiyqkcx/100 WBC (Bld)Lymphocytes/100 leukocytes in Blood by Automated count.[facility] HospitalH Auto (RBC) [Entitic mass]Ordered By: Tobin Alvarez on 98-66-7328TWU (RBC) [Entitic mass]MCH [Entitic mass] by Automated count24.7-34.3FPike Community HospitalMCHC Auto (RBC) [Mass/Vol]Ordered By: Tobin Alvarez on 43-25-4306SKCK (RBC) [Mass/Vol]MCHC [Mass/volume] by Automated count32.0-35.0[facility] Medical CenterMCV Auto (RBC) [Entitic vol]Ordered By: Tobin Alvarez on 32-45-9189TXZ (RBC) [Entitic vol]MCV [Entitic volume] by Automated slgfi72-033 [facility] Medical CenterMonocytes Auto (Bld) [#/Vol]Ordered By: Tobin Alvarez on 96-33-9643Evfrqbpgz (Bld) [#/Vol]Automated blood monocyte countHigh 0.0-0.8[facility] Medical CenterMonocytes/100 WBC Auto (Bld)Ordered By: Tobin Alvarez on 98-18-5008Mjqqcynxc/100 WBC (Bld)Automated monocyte %. [facility] Medical CenterNeutrophils Auto (Bld) [#/Vol]Ordered By: Tobin Alvarez on 88-40-0436Yfiqewvooip (Bld) [#/Vol]Neutrophils [#/volume] in Blood by Automated count1.8-7.7FPike Community HospitalNeutrophils/100 WBC Auto (Bld)Ordered By: Tobin Alvarez on 95-99-5340Lthhokumnsh/100 WBC (Bld) Automated neutrophil %.[facility] CenterNo Panel Information Ordered By: Yuriy Conway on 87-76-2139Bbiibok Glucose CommentGlu2: cleaned meterTrumbull Regional Medical CenterNo Panel InformationOrdered By: Tobin Alvarez on 84-53-6750Kphjpvpzi GFR (CKD-EPI)N/[facility] Creatinine Clearance (ChemN/[facility] HospitalNucleated erythrocytes [Presence] in Blood by Automated countOrdered By: Tobin Alvarez on 97-74-3749Jvsmvljpk RBC Auto Ql (Bld)Nucleated erythrocytes [Presence] in Blood by Automated count0-0.5FPike Community HospitalPlatelet mean volume Auto (Bld) [Entitic vol]Ordered By: Tobin Alvarez on 96-65-9637Cbhxgbjw mean volume (Bld) [Entitic vol]Platelet mean volume [Entitic volume] in Blood by Automated count6.3-10.7FPike Community HospitalPlatelets Auto (Bld) [#/Vol]Ordered By: Tobin Alvarez on 80-41-4966Mxoxopqll (Bld) [#/Vol]Platelets [#/volume] in Blood by Automated ijvvb300-791LwwqjghbtTrumbull Regional Medical Center Potassium (Bld) [Moles/Vol]Ordered By: Yuriy Conway on 43-49-0991Sakxfhzox [Moles/Vol]Whole blood potassium measurement3.5-4.9Tr[facility] Medical CenterPotassium [Moles/volume] in Serum or PlasmaOrdered By: Tobin Alvarez on 89-87-9535Jcqcscwse [Moles/Vol]Potassium [Moles/volume] in Serum or Plasma 3.5-5.1FPike Community HospitalRBC Auto (Bld) [#/Vol]Ordered By: Tobin Alvarez on 07-95-1404JQF (Bld) [#/Vol]Erythrocytes [#/volume] in Blood by Automated count3.60-5.00Marion Hospitalerum or plasma anion gap determinationOrdered By: Tobin Alvarez on 13-47-8282Shywn gap [Moles/Vol] Serum or plasma anion gap determinationHigh6.0-15.0Marion Hospitalodium (Bld) [Moles/Vol]Ordered By: Yuriy Conway on 52-04-4917Vpbnqe [Moles/Vol]Whole blood sodium wgyspsyugmo928-398WltmucgyrMarion Hospitalodium [Moles/volume] in Serum or PlasmaOrdered By: Tobin Alvarez on 03-07-4230Jkkvnw [Moles/Vol]Sodium [Moles/volume] in Serum or PxpuenRkw477-278 [facility] Medical CenterUrea nitrogen [Mass/volume] in Serum or Plasma Ordered By: Tobin Alvarez on 76-77-5130Fklm nitrogen [Mass/Vol]Urea nitrogen [Mass/volume] in Serum or Plasma7-25Tr[facility] Medical CenterWBC Auto (Bld) [#/Vol]Ordered By: Tobin Alvarez on 55-65-0384SBJ (Bld) [#/Vol]Leukocytes [#/volume] in Blood by Automated count3.8-11.6FPike Community Hospital Whole blood bicarbonate measurementOrdered By: Yuriy Conway on 43-54-2021PGT4 (Bld) [Moles/Vol]Whole blood bicarbonate ursuqkgauko85.0-28.0[facility] Medical CenterWhole blood ionized calcium measurement (moles/volume)Ordered By: Yuriy Conway on 06-47-8553Masljry.ionized (Bld) [Moles/Vol]Whole blood ionized calcium measurement (moles/volume)Low1.12-1.32[facility] Whole blood oxygen saturation measurementOrdered By: Yuriy Conway on 18-46-2280Rsaukj saturation in BloodWhole blood oxygen saturation measurementLow 95-98[facility] Medical CenterComment on above:Reference ranges reflect baseline specimens onlyWhole blood pHOrdered By: Yuriy Conway on 80-14-8076fD (Bld)Whole blood pH7.31-7.45Tr[facility] Medical CenterCT angio cheston 38-66-4894FP angio [facility] Main [place] [address] [place] [address] CT Scan Report Signed Patient: Jesus Wolf MR#: [id number] 1485 : 1955 Acct:[id number] Age/Sex: 69 / F ADM Date: 09/15/24 Loc: [place] Room: Type: [facility] Attending Dr: Yuriy Conway MD Copies to: Yuriy Conway MD, [facility] Ordering Provider: Yuriy Conway MD, [facility] Date of Service: 09/15/24 CT/CT angio [...] Concepcion Jr., D.O.09/15/2024 3:59 PM Dictation Location: [place] [address] Transcribed By: NICOLE 09/15/24 1559 Dictated By: Jose Concepcion Jr, DO 09/15/24 1553 Signed By: 09/15/24 1559NoIredell Memorial Hospital Physician GroupCreatinine (Bld) [Mass/Vol] Ordered By: Yuriy Conway on 70-38-3902Amlmeeqqfv [Mass/Vol]Whole blood creatinine measurement0.6-1.3FPike Community HospitalComment on above: ER/ESD physician is notified/shown all ISTAT results.Critical values may be confirmed by laboratorytesting ifdeemed necessary by ER attending doctor.ISTAT XRay CREon 23-47-8958Gnjygagrdt [Mass/Vol]1.2 mg/dLNormal0.6-1.3[facility] Physician GroupComment on above:Result Comment: ER/ESD physician is notified/shown all ISTAT results. Critical values may be confirmed by laboratory testing if deemed necessary by ER attending doctor.Performed By: #### ISCRE #### [facility] [address] [place] [address] USAISTAT GFR49.306NoIredell Memorial Hospital Physician GroupComment on above:Result Comment: PERFORMED BY: [place] [address] PATHOLOGIST [employer] ZHAO WORRELL M.D.Performed By: #### ISCRE #### [facility] [address] [place] [address] USANo Panel InformationOrdered By: Yuriy Conway on 50-96-1935Bwnfcyg Estimated GFR (eGFR)49.306[facility] TRANSTHORACIC ECHO (TTE) COMPLETEon 84-70-8231DCMIZVBIJDHNS ECHO (TTE) COMPLETE [address], Suite [facility], [place] [address] TRANSTHORACIC ECHOCARDIOGRAM REPORT Patient Name: JESUS Recio Physician: [id number] Yuriy Conway MD, [facility] Study Date: 09/12/2024 Ordering Provider: [id number] YURIY CONWAY MRN/PID: [id number] Fellow: Nurse: Date of /Age: 7 1955 / 69 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: Gender Assigned at F Additional Staff: : Height: 170.18 cm Admit Date: Weight: 115.67 kg Admission Status: Outpatient BSA / BMI: 2.24 m2 / 39.94 Department Location: [facility] Heart kg/m2 Sherry Blood Pressure: 140 /90 mmHg Study Type: TRANSTHORACIC ECHO (TTE) COMPLETE Diagnosis/ICD: Chronic diastolic (congestive) heart failure (CHF)-I50.32; Shortness of breath-R06.02 Indication: CHF SOB CPT Codes: Echo Complete w Full Doppler-44308 Patient History: Pertinent History: A-Fib, HTN, Hyperlipidemia [...] 16.57 (<8.0) [facility] [place] (more content not included)...[facility] HospitalX-ray reportOrdered By: Jose Concepcion on 32-64-9483Rwcrl report [facility] Main [address] [address] XRay Report Signed Patient: Jesus Wolf MR#: [id number] : 1955 Acct:[id number] Age/Sex: 69 / F ADM Date: 5 Loc: RT Room: Type: [facility] Attending Dr: Yuriy Conway MD Copies to: Yuriy Conway MD, [facility]~ Ordering Provider: Yuriy Conway MD, [facility] Date of Service: 08/29/24 XR/XR chest 2V*: I48.0,Z79.899 Chest 2 views CLINICAL HISTORY: Follow-up long-term high risk medication use. COMPARISON: Chest 02/07/2022 FINDINGS: Heart normal in size. Right mid lung scarring. No new consolidation pneumothorax pleural effusion or free air. XR/XR chest 2V* IMPRESSION: NO ACUTE CARDIOPULMONARY ABNORMALITY. Impression dictated by: Jose Concepcion Jr., D.OAjay08/29/2024 3:02 PM Dictation Location: [place] [address] Transcribed By: [facility] 08/29/24 1502 Dictated By: Jose Concepcion Jr, DO 08/29/24 1502 Signed By: 08/29/24 1502 [facility]*on 94-59-0254LP chest 2V*[facility] Main [address] [address] XRay Report Signed Patient: Jesus Wolf MR#: [id number] : 1955 Acct:[id number] Age/Sex: 69 / F ADM Date: 08/29/24 Loc: RT Room: Type: [facility] Attending Dr: Yuriy Conway MD Copies to: Yuriy Conway MD, [facility] Ordering Provider: Yuriy Conway MD, [facility] Date of Service: 08/29/24 XR/XR chest 2V*: I48.0,Z79.899 Chest 2 views CLINICAL HISTORY: Follow-up long-term high risk medication use. COMPARISON: Chest 02/07/2022 FINDINGS: Heart normal in size. Right mid lung scarring. No new consolidation pneumothorax pleural effusion or free air. XR/XR chest 2V* IMPRESSION: NO ACUTE CARDIOPULMONARY ABNORMALITY. Impression dictated by: Jose Concepcion Jr., D.O.08/29/2024 3:02 PM Dictation Location: [place] [address] Transcribed By: [facility] 08/29/24 1502 Dictated By: Jose Concepcion Jr, DO 08/29/24 1502 Signed By: 08/29/24 1502[facility] Physician GroupVT WATCHMAN FULL CONTRASTon 66-82-7590SM WATCHMAN FULL CONTRASTInterpreted By: Denis Chand, ADDENDUM: [...] STRUCTURES ARE THE SOLE RESPONSIBILITY OF THE LARDER COOK SUBMITTING THE ORIGINAL REPORT (NOT THIS ADDENDUM) Signed by: Denis Chand 08/30/2024 1:20 PM -------- ORIGINAL REPORT -------- Dictation workstation: [id number] Interpreted By: Beverly Steiner and Amoah Joseph STUDY: CT WATCHMAN FULL CONTRAST; 08/15/2024 12:48 pm INDICATION: Signs/Symptoms:Post Watchman device surveillance. ,I48.0 Paroxysmal atrial fibrillation (Multi),R04.0 Epistaxis,D64.9 Anemia, unspecified,Z01.818 Encounter for other preprocedural examination COMPARISON: CT WATCHMAN DONE ON 04/07/2024. ACCESSION NUMBER(S): [id number] ORDERING CLINICIAN: JUAN CHINO TECHNIQUE: Using multi [...] is contrast within the (more content not included)...[facility] CNPNon 14-25-3297EIVWTjmdbwGeefjgols Clinic ClevelandRenal function 2000 panelon 10-87-1445Anojypg [Mass/Vol]3.7 g/dLLow3.9-4.9CMarietta Osteopathic Clinic on above:Order Comment: Specimen Type: BLOOD SPECIMENOrdering Facility: External Submitter Address: , ,Performed By: #### 28267-1 ####[facility] LABCLIA [id number] [place] [address] [place] OF AMERICAAnion gap [Moles/Vol]11 mmol/LNormal8-15[facility] on above:Order Comment: Specimen Type: BLOOD SPECIMENOrdering Facility: External Submitter Address: , ,Performed By: #### 54943-4 ####[facility] LABCLIA [id number] [place] [address] [place] AMERICACalcium [Mass/Vol]9.1 mg/dLNormal 8.5-10.2CMarietta Osteopathic Clinic on above:Order Comment: Specimen Type: BLOOD SPECIMENOrdering Facility: External Submitter Address: , ,Performed By: #### 62860-1 ####[facility] LABCLIA [id number] [place] [address] [place] AMERICAChloride [Moles/Vol] 106 mmol/CKvmocn47-246DvikswbjzRiverside Methodist Hospital on above:Order Comment: Specimen Type: BLOOD SPECIMENOrdering Facility: External Submitter Address: , , Performed By: #### 00020-5 ####[facility] LABCLIA [id number] [place] [address] [place] ADOLFO CO2 [Moles/Vol]24 mmol/TGjkgis96-15JwqmplxkpRiverside Methodist Hospital on above: Order Comment: Specimen Type: BLOOD SPECIMENOrdering Facility: External Submitter Address: , ,Performed By: #### 53302-3 ####[facility] LABCLIA [id number] [place] [address] [place] AMERICACreatinine [Mass/Vol]1.03 mg/dLHigh0.58-0.96[facility] on above:Order Comment: Specimen Type: BLOOD SPECIMENOrdering Facility: External Submitter Address: , ,Performed By: #### 73862-4 ####[facility] LABCLIA [id number] [place] [address] [place] AMERICACreatinine and Glomerular filtration rate.predicted panel (S/P/Bld)59 mL/min/1.73m???Low>=60[facility] on above:Order Comment: Specimen Type: BLOOD SPECIMENOrdering [...] not accurately reflect actual GFR.Performed By: #### 90340-5 ####[facility] LABCLIA [id number] [address] [address] [place] OF AMERICAGlucose [Mass/Vol]82 mg/dLNormal 74-99[facility] on above:Order Comment: Specimen Type: BLOOD SPECIMENOrdering Facility: External Submitter Address: , ,Result Comment: The [place] Diabetes Association (ADA) provides guidance for cutoff [...] Standards of Medical Care in Diabetes 2016, [place] Diabetes Association. Diabetes Care. 2016.39(Suppl 1).Performed By: #### 28576-7 ####[facility] LABCLIA [id number] [place] [address] [place] OF AMERICAPhosphate [Mass/Vol]3.1 mg/dLNormal2.7-4.8COhioHealth Hardin Memorial Hospital Comment on above:Order Comment: Specimen Type: BLOOD SPECIMENOrdering Facility: External Submitter Address: , ,Performed By: #### 65158-8 ####[facility] LABCLIA [id number] [address] [address] [place] AMERICAPotassium [Moles/Vol]4.7 mmol/LNormal3.7-5.1CMarietta Osteopathic Clinic on above:Order Comment: Specimen Type: BLOOD SPECIMENOrdering Facility: External Submitter Address: , ,Performed By: #### 41686-9 ####[facility] LABCLIA [id number] [address] [address] [place] AMERICASodium [Moles/Vol]141 mmol/YWhrste279-712UpmfymsykRiverside Methodist Hospital on above:Order Comment: Specimen Type: BLOOD SPECIMENOrdering Facility: External Submitter Address: , , Performed By: #### 42726-2 ####[facility] LABCLIA [id number] [place] [address] [place]OLFO Urea nitrogen [Mass/Vol]24 mg/dLHigh7-21[facility] on above:Order Comment: Specimen Type: BLOOD SPECIMENOrdering Facility: External Submitter Address: , ,Performed By: #### 54703-9 ####[facility] LABCLIA [id number] [place] [address] [place] AMERICACNPNon 98-74-5339YCFTByibauZknftbbic Clinic ClevelandECG 12 Leadon 81-27-8350MUS revealed normal sinus rhythm with first-degree block, IVCD, abnormal ECG,[facility] Work Phone: UnProtestant Deaconess Hospital Work Phone: POCT rapid strep Aon 07-11-2024S. pyogenes Ag IA Ql (Unsp spec)NegativeNegativeProWyandot Memorial Hospital SystemProOhiohealth Doctors HospitalLarge Joint Arthro/Inj: L knee jointon 41-18-3935LqactMary Childress MD 05/20/2024 10:30 AM Large Joint Arthro/Inj: L knee joint Informed Consent Consent Obtained: Written [place] Protocol A moment to CARE was completed. [...] and Plan of Care Visit completed when applicableVan Wert County HospitalXR Knee - left Single viewon 42-69-0953NSBLWJUQDW: No acute fracture or dislocation. Mild patellofemoral osteoarthritis. Cylinder Loader: K[facility]ILDR[facility]'S HOSPITALHakan Transcribe Date/Time: May 20 2024 9:27A [...] 03/15/2024. RESULT: See Impression DIVISION OF RADIOLOGYProvider, [facility] - 05/20/2024 * * *Final Report* * [...] acute fracture or dislocation. Mild patellofemoral osteoarthritis. Cylinder Loader: [facility] Transcribe Date/Time: May 20 2024 9:27A Dictated by : JENNIFER ZAZUETA MD This examination was interpreted and the report reviewed and electronically signed by: JENNIFER ZAZUETA MD on May 20 2024 9:27AM EST [facility] HospitalRadiology Study observation (narrative)[facility] Knee - left Single viewOrdered By: Ccf Provider on 79-72-2434Cqbgwaldw ClinicECG 12-LEADon 64-16-8230BLW 12-LEADVentricular Rate 65 Atrial Rate 65 P-R Interval 186 QRS Duration 106 Q-T Interval 470 QTC Calculation(Bazett) 488 P Corsica 80 R Corsica 63 T Cors[place] 78 QRS Count 11 Q Onset 220 P Onset 127 P Offset 180 T Offset 455 QTC Fredericia 482 Diagnosis Normal sinus rhythm Normal ECG When compared with ECG of 15-FEB-2024 16:45, No significant change was found Confirmed by Julius Eddy ([id number]) on 05/18/2024 11:22:41 AMNormalBristol-Myers Squibb Children's HospitalACT Coag (Bld)on 32-06-3807Xepnjfaojpdwgy and review of laboratory resultsAbnoMemorial Health System Selby General HospitalActivated clotting timeon 26-17-2956UJW Coag (Bld)178 wCafb33-990 [facility] Methodist HospitalComment on above:Result Comment: Target ACT range will vary based on the patient population, clinical status, and surgical intervention occurring.Performed By: #### 3184-9 #### BELKIS Mooney () [facility] ([facility]) [address] [place], [place] [address]CT WATCHMAN FULL CONTRASTon 46-20-4978JN WATCHMAN FULL CONTRASTInterpreted By: Franck Sanches and Amoah Joseph STUDY: CT WATCHMAN FULL CONTRAST; 04/07/2024 1:01 pm INDICATION: Signs/Symptoms:Pre Watchman sizing and thrombus detection. COMPARISON: None. ACCESSION NUMBER(S): [id number] ORDERING CLINICIAN: JUAN CHINO TECHNIQUE: Using multi-detector [...] Franck Sanches 04/07/2024 3:09 PM Dictation workstation: [id number] County HospitalLaboratory - Coagulationon 95-26-0628FRP Coag (Bld)178 Delaware County HospitalComment on above:Target ACT range will vary [...] Franck Sanches 04/07/2024 3:09 PM Dictation workstation: [id number] By: Franck Sanches and Amoah Joseph STUDY: CT WATCHMAN FULL CONTRAST; 04/07/2024 1:01 pm INDICATION: Signs/Symptoms:Pre Watchman sizing and thrombus detection. COMPARISON: None. ACCESSION NUMBER(S): [id number] ORDERING CLINICIAN: JUAN CHINO TECHNIQUE: Using multi-detector [...] and thrombus detection. COMPARISON: None. ACCESSION NUMBER(S): [id number] ORDERING CLINICIAN: JUAN CHINO TECHNIQUE: Using multi-detector [...] Franck Sanches 04/07/2024 3:09 PM Dictation workstation: [id number] [facility] Work Phone: Radiology Study observation (narrative)[facility] Work Phone: No Panel InformationOrdered By: Franck Sanches on 23-98-4740QokwxifaldProtestant Deaconess Hospital Work Phone: basic metabolic 2000 panelon 49-72-0411Hnzqb gap [Moles/Vol]11 mmol/L8 - 15 mmol/LCleveland ClinicCalcium [Mass/Vol]9.3 mg/dL8.5 - 10.2 mg/dLCleveland ClinicChloride [Moles/Vol]105 mmol/L98 - 107 mmol/L [facility]wel[facility] ClinicCO2 [Moles/Vol]27 mmol/L22 - 30 mmol/LCleveland ClinicCreatinine [Mass/Vol]1.14 mg/dLHigh0.58 - 0.96 mg/dLOhiohealth Shelby HospitalGFR/1.73 sq M.predicted among non-blacks MDRD (S/P/Bld) [...] reflect actual GFR.Glucose [Mass/Vol]89 mg/dL74 - 99 mg/dLOhiohealth Shelby Hospital Comment on above:The [place] Diabetes Association (ADA) provides guidance for cutoff [...] Standards of Medical Care in Diabetes 2016, [place] Diabetes Association. Diabetes Care. 2016.39(Suppl 1). Interpretation and review of laboratory resultsAbnormalCleveland ClinicPotassium [Moles/Vol]4.5 mmol/L3.7 - 5.1 mmol/LCleveland ClinicSodium [Moles/Vol]143 mmol/L136 - 144 mmol/LCleveland ClinicUrea nitrogen [Mass/Vol]18 mg/dL7 - 21 mg/dLSumma Health Barberton Campus Skeletal system.axial Views for bone density and vertebral fractureOrdered By: Ccf Provider on 29-44-4992KQLTTX T-SCORE-[address] [place] [address] Skeletal system.axial Views for bone density and vertebral fractureon 56-56-4144KQBSZQGAWO: THE LOWEST T-SCORE IS -1.8 IN THE [...] FOR MORE INFORMATION ABOUT DIAGNOSIS AND TREATMENT: [facility] Center for Osteoporosis and Metabolic Bone Disease:? www.ccf.org/arthritis/osteo National Osteoporosis Foundation:? www.nof.org International Society of Clinical Densitometry www.iscd.org Cylinder Loader: [id number] Transcribe Date/Time: Mar 15 2024 2:24P Dictated by : CHIKIS GARCIA MD This examination was interpreted and the report reviewed and electronically signed by: CHIKIS GARCIA MD on Mar 15 2024 2:59PM [facility] DIVISION OF RADIOLOGY* * *Final Report* * * DATE OF EXAM: Mar 15 2024 2:20PM [facility] 0802 - BD VFA WITH DXA - AXIAL SKELETON / PROCEDURE REASON: multiple diagnoses * * * * Physician Interpretation * * * * EXAMINATION: DXA BONE DENSITOMETRY BD VFA WITH DXA - AXIAL SKELETON PATIENT DEMOGRAPHICS: Age: 69 years, Gender: Female SCANNER INFORMATION: DXA Model: Synqera (S/N: [id number]) Date Scanned: 03/15/2024 2:20 PM CLINICAL HISTORY: DIAGNOSTIC Osteopenia, unspecified location S/P parathyroidectomy S/P parathyroidectomy emt intermediate (current) use of 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. RISK FACTORS FOR [...] had a previous bone density in the [facility] or the previous bone density was performed on a different DXA machine (new, updated model or different location) within the [facility]. VERTEBRAL FRACTURE ASSESSMENT Indication for VFA: Physician ordered Levels visualized: T6-L5 Results: No fracture identified Presence of a single vertebral fracture increases subsequent global fracture risk, multiple fractures significantly increase fracture risk. TRABECULAR BONE ASSESSMENT TBS not performed: BMI outside recommended range for calculation of TBS. DIVISION OF RADIOLOGYProvider, [facility] - 03/15/2024 * * *Final Report* * * DATE OF EXAM: Mar 15 2024 2:20PM [facility] [address]802 - BD VFA WITH DXA - AXIAL SKELETON / PROCEDURE REASON: multiple diagnoses * * * * Physician Interpretation * * * * EXAMINATION: DXA BONE DENSITOMETRY BD VFA WITH DXA - AXIAL SKELETON PATIENT DEMOGRAPHICS: Age: 69 years, Gender: Female SCANNER INFORMATION: DXA Model: A21 Tykoon (S/N: [id number]) Date Scanned: 03/15/2024 2:20 PM CLINICAL HISTORY: DIAGNOSTIC Osteopenia, unspecified location S/P parathyroidectomy S/P parathyroidectomy emt intermediate (current) use of 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. RISK FACTORS FOR [...] had a previous bone density in the [facility] or the previous bone density was performed on a different DXA machine (new, updated model or different location) within the [facility]. VERTEBRAL FRACTURE ASSESSMENT Indication for VFA: [...] FOR MORE INFORMATION ABOUT DIAGNOSIS AND TREATMENT: [facility] for Osteoporosis and Metabolic Bone Disease:? www.ccf.org/arthritis/osteo National Osteoporosis Foundation:? www.nof.org International Society of Clinical Densitometry www.iscd.org Cylinder Loader: [id number] Transcribe Date/Time: Mar 15 2024 2:24P Dictated by : CHIKIS GARCIA MD This examination was interpreted and the report reviewed and electronically signed by: CHIKIS GARCIA MD on Mar 15 2024 2:59PM EST [facility] HospitalNo Panel Informationon 27-36-8228Qflbpstqj Study observation (narrative)[facility] HospitalXR Knee - left 4 Viewson 99-09-9288BLDNECDXBB: Severe osteoarthritis left knee and small joint effusion Cylinder Loader: MILLER Transcribe Date/Time: Mar 15 2024 9:13P Dictated by : CHIKIS GARCIA MD This examination was interpreted and the report reviewed and electronically signed by: CHIKIS GARCIA MD on Mar 15 2024 9:13PM [facility] DIVISION OF RADIOLOGY* * *Final Report* * * DATE OF EXAM: Mar 15 2024 3:40PM AOX 5202 - XR KNEE 4V AP/PA BOTH+LAT/HELLEN LT / PROCEDURE REASON: multiple diagnoses * * * * Physician Interpretation * * * * X-RAYS LEFT KNEE HISTORY: pain. Osteopenia of multiple sites S/P parathyroidectomy S/P parathyroidectomy emt intermediate (current) use of 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 TECHNIQUE: 3 views of the left knee. COMPARISON: None RESULT: Osteoarthritis left knee, severe in the medial compartment. Small left knee joint effusion is present. No fracture or dislocation is identified. DIVISION OF RADIOLOGYProvider, [facility] - 03/15/2024 * * *Final Report* * * DATE OF EXAM: Mar 15 2024 3:40PM AOX 5202 - XR KNEE 4V AP/PA BOTH+LAT/HELLEN LT / PROCEDURE REASON: multiple diagnoses * * * * Physician Interpretation * * * * X-RAYS LEFT KNEE HISTORY: pain. Osteopenia of multiple sites S/P parathyroidectomy S/P parathyroidectomy emt intermediate (current) use of 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 TECHNIQUE: 3 views of the left knee. COMPARISON: None RESULT: Osteoarthritis left knee, severe in the medial compartment. Small left knee joint effusion is present. No fracture or dislocation is identified. IMPRESSION IMPRESSION: Severe osteoarthritis left knee and small joint effusion Cylinder Loader: [facility] Transcribe Date/Time: Mar 15 2024 9:13P Dictated by : CHIKIS GARCIA MD This examination was interpreted and the report reviewed and electronically signed by: CHIKIS GARCIA MD on Mar 15 2024 9:13PM EST [facility] HospitalXR Knee - left 4 ViewsOrdered By: Ccf Provider on 03-15-2024 [facility] HospitalECG 12-LEADon 70-38-6756YGI 12-LEADVentricular Rate 69 Atrial Rate 69 P-R Interval 180 QRS Duration 116 Q-T Interval 470 QTC Calculation(Bazett) 503 P Corsica 73 R Corsica 44 T Cors[place] 72 QRS Count 12 Q Onset 220 P Onset 130 P Offset 184 T Offset 455 QTC Fredericia 492 Diagnosis Normal sinus rhythm Prolonged QT Abnormal ECG When compared with ECG of 16-NOV-2023 16:03, Sinus rhythm has replaced Wide QRS tachycardia Vent. rate has decreased BY 69 BPM Confirmed by Julius Eddy ([id number]) on 02/22/2024 8:57:23 AMNAustin Hospital and ClinicBasic metabolic 2000 panelon 59-13-2386Mrrxl gap [Moles/Vol]12 mmol/CUupceg94-50JfgcpbuiffOhiohealthComment on above: Performed By: #### 85802-2 #### PARVEZIBRENEE QUINN (50659) [facility] ([facility]) [address] [place] [address] 62[address]Gqbphfx [Mass/Vol]9.6 mg/dLNormal8.6-10.3OhiohealthComment on above:Performed By: #### 00632-9 #### PARVEZIBRENEE QUINN (48783) [facility]) [address] [place] [address] 14304Icmhafwu [Moles/Vol]105 mmol/RFecard87-812FvnvplteziAvita Health System Ontario HospitalComment on above:Performed By: #### 29339-2 #### PARVEZIBRENEE QUINN (78987) [facility]) [address] [place] [address] 42307GZ9 [Moles/Vol]29 mmol/GMsgmjn28-29IesfaxiylmOhiohealthComment on above:Performed By: #### 98437-5 #### PARVEZIBRENEE QUINN (45793) [facility]) [address] [place] [address] 03803Sozvierlac [Mass/Vol]0.99 mg/dLNormal0.50-1.05OhiohealthComment on above:Performed By: #### 62110-5 #### DONAL QUINN (44362) [facility]) [address] [place] [address] 64365Sbmajufkfx filtration rate/1.73 sq M.jshhewrwu35 mL/min/1.73m*2 Normal>60UnAvita Health System Ontario HospitalComment on above:Result Comment: Calculations of estimated GFR are performed using the 2020 CKD-EPI Study Refit equation without the race variable for the IDMS-Traceable creatinine methods. https://jasn.asnjournals.org/content/early/ASN.6575529652Hbhsjhiee By: #### 76901-5 #### DONAL QUINN (70012) [facility]) [address] [place] [address] 92230Lntkrkr [Mass/Vol]90 mg/dCNdgzzt24-71FmcxstwhngAvita Health System Ontario HospitalComment on above:Performed By: #### 61788-0 #### DONAL QUINN (77002) [facility]) [address] [place] [address] 00807Xuengohgh [Moles/Vol]4.5 mmol/LNormal3.5-5.3OhiohealthComment on above:Performed By: #### 06925-6 #### PARVEZIBRENEE QUINN (02097) [facility]) [address] [place] [address] 89845Okgkoa [Moles/Vol]141 mmol/LYhxnah193-534MatvnkuahtAvita Health System Ontario HospitalComment on above:Performed By: #### 50643-9 #### DONAL QUINN (11718) [facility]) [address] [place] [address] 61334Msfy nitrogen [Mass/Vol]24 mg/dLHigh6-23UnAvita Health System Ontario HospitalComment on above:Performed By: #### 89760-5 #### PARVEZIBRENEE QUINN (79737) [facility]) [address] [place] [address] 70032QXJ panel Auto (Bld)on 09-01-6956Hyalvdjrnll distribution width (RBC) [Ratio]12.7 %Sfelhs21.5-14.5[facility] Comment on above:Performed By: #### 62868-4 #### DONAL QUINN (35075) [facility]) [address] [place] [address] 66432Ifmsxzbdxf (Bld) [Volume fraction]43.9 %Szvslq65.0-46.0 OhiohealthComment on above:Performed By: #### 63806-2 #### DONAL QUINN (35312) [facility]) [address] [place] [address] 16177Thewuquhjl (Bld) [Mass/Vol]14.5 g/sIDdlbln23.0-16.0UnAvita Health System Ontario HospitalComment on above:Performed By: #### 03733-3 #### DONAL QUINN (71517) [facility]) [address] [place] [address] 99303CBL (RBC) [Entitic mass]32.2 pxQnbljx44.0-34.0UnAvita Health System Ontario HospitalComment on above:Performed By: #### 47664-2 #### DONAL QUINN (90764) [facility]) [address] [place] [address] 14334YKCI (RBC) [Mass/Vol]33.0 g/dGDxtlsv09.0-36.0UnAvita Health System Ontario HospitalComment on above:Performed By: #### 82357-7 #### DONAL QUINN (77997) [facility] [address] [place] [address] 13989ESJ (RBC) [Entitic vol]97 rYHvydkd31-685WsgmabowcpAvita Health System Ontario HospitalComment on above:Performed By: #### 14264-4 #### DONAL QUINN (91972) [facility]) [address] [place] [address] 04782Mhecbxlpq RBC/100 WBC (Bld) [Ratio]0.0 /100 WBCsNormal0.0-0.0 OhiohealthComment on above:Performed By: #### 59836-2 #### PARVEZIBRENEE DIRK TRACY (20028) [facility]) [address] [place] [address] 42135Lfwtsvoww (Bld) [#/Vol]258 x10*3/gCGysvvu021-211DcmvflawwxOhiohealthComment on above:Performed By: #### 79376-8 #### PARVEZIBRENEE CAVAZOS RIO DEMARCUS (95333) [facility]) [address] [place] [address] 33796TEK (Bld) [#/Vol]4.51 x10*6/uLNormal4.00-5.20OhiohealthComment on above:Performed By: #### [id number] #### PARVEZIBRENEE DIRK TRACY ([id number]) [facility] ([facility]) [address] [place] [address] 44006LBI (Bld) [#/Vol]6.9 x10*3/uLNormal4.4-11.3OhiohealthComment on above:Performed By: #### [id number] #### DONAL DIRK TRACY ([id number]) [facility] ([facility]) [address] [place] [address] 84995Sptmnh dioxide, total [Moles/volume] in Serum or PlasmaOrdered By: Yuriy Conway on 34-56-5501JL4 [Moles/Vol]25.2 mmol/LHiabsf39.0-31.0 [facility] Medical CenterComment on above:Performed By: #### LYRICKI #### [facility] [address] [place] [address] USAChloride [Moles/volume] in Serum or PlasmaOrdered By: Yuriy Conway on 28-71-8430Wjxwjonb [Moles/Vol]109 mmol/BWdtp93-277VdyrdcobmTrumbull Regional Medical CenterComment on above:Performed By: #### LYTES #### [facility] [address] [place] [address] USAECG 12 lead ECGon 94-75-8258MJX 12 [facility]AD[facility] Main [address] [address] Electrocardiograph Report Signed Patient: Jesus Wolf MR#: [id number] : 1955 Acct:[id number] Age/Sex: 68 / F ADM Date: 11/26/23 Loc: PO Room: Type: [facility] Attending Dr: Yuriy Conway MD Ordering Provider: Yuriy Conway MD, [facility] Date of Service: 11/26/2307/10/1234 ECG/ECG 12 [...] When compared with ECG of 21-SEP-2023 12:09, [place] interval has increased Nonspecific T wave abnormality now evident in Anterior leads Confirmed by ROLAND CHILDERS [facility] ([id number]) on 11/27/2023 4:52:15 PM Referred By: Yuriy Conway Electronically Signed By:GAETANO WATKINS MD [facility] Transcribed By: [facility] Signed By Tobin Watkins MD 11/27/[address] [place] [address] Physician GroupECG post procedureon 11-26-2023 [facility] Main [place] [id number] Electrocardiograph Report Signed Patient: Jesus Wolf MR#: [id number] : 1955 Acct:[id number] Age/Sex: 68 / F ADM Date: 11/26/23 Loc: PO Room: Type: [facility] Attending Dr: Yuriy Conway MD Ordering Provider: Yuriy Conway MD, [facility] Date of Service: 11/26/23/ ECG/ECG post [...] BY 41 BPM Confirmed by ROLAND CHILDERS [facility] ([id number]) on 11/27/2023 4:52:18 PM Referred By: Yuriy Conway Electronically Signed By:GAETANO WATKINS MD [facility] Transcribed By: MUS Signed By Tobin Watkins MD 11/27/[address] [place] [address] Physician GroupPotassium [Moles/volume] in Serum or PlasmaOrdered By: Yuriy Conway on 67-96-7321Akeakrkle [Moles/Vol]4.1 mmol/LNormal3.5-5.1FPike Community HospitalComment on above:Performed By: #### LYTES #### [place] [address] USASerum or plasma anion gap determinationOrdered By: Yuriy Conway on 94-94-9492Ozqkp gap [Moles/Vol]11.9 mmol/LNormal6.0-15.0Trumbull Regional Medical CenterComment on above:Result Comment: PERFORMED BY: [place] [address] PATHOLOGIST [employer] ERICK FORDE M.D.Performed By: #### LYTES #### [place] [address] USASodium [Moles/volume] in Serum or PlasmaOrdered By: Yuriy Conway on 89-67-6630Xfcyyx [Moles/Vol]142 mmol/LApvyzs469-776JpdgnonsjTrumbull Regional Medical CenterComment on above:Performed By: #### LYTES #### [place] [id number] USAECG 12-LEADon 84-71-5746GTZ 12-LEADVentricular Rate 138 Atrial Rate 68 QRS Duration 152 Q-T Interval 384 QTC Calculation(Bazett) 581 R Cors[place] 99 T [place] 52 QRS Count 23 Q Onset 196 T Offset 388 QTC Fredericia 506 Diagnosis Wide QRS tachycardia Rightward axis Nonspecific intraventricular block Abnormal ECG When compared with ECG of 04-OCT-2019 12:23, Wide QRS tachycardia has replaced Sinus rhythm Vent. rate has increased BY 70 BPM Confirmed by Todd Sheffield ([id number]) on 11/25/2023 2:22:27 [facility] 12 Leadon 27-95-3292KMG revealed atrial flutter with variable AV conductionCPOhio Valley Hospital Work Phone: MR Biliary ducts and Pancreatic duct WO and W contrast Melly 38-40-4527Kosxvhlip ClinicCollagen crosslinked C-telopeptide [Mass/Vol]on 10-13-2023 Telopeptide, Beta Cross Azddup922 pg/mL171 - 970 pg/mLCleveland ClinicComprehensive metabolic 2000 panelon 11-43-0965Txzucbc [Mass/Vol]3.9 g/dL 3.9 - 4.9 g/dLMaxwelton ClinicALP [Catalytic activity/Vol]101 U/L34 - 123 U/L [facility]welton ClinicALT [Catalytic activity/Vol]24 U/L7 - 38 U/LCleveland [facility] Anion gap [Moles/Vol]12 mmol/L9 - 18 mmol/LCleveland ClinicAST [Catalytic activity/Vol]25 U/L13 - 35 U/LCleveland St[facility] Cloud HospitalBilirubin [Mass/Vol]0.4 mg/dL0.2 - 1.3 mg/dLMaxwelton ClinicCalcium [Mass/Vol]9.6 mg/dL8.5 - 10.2 mg/dLOhiohealth Shelby HospitalChloride [Moles/Vol]107 mmol/LHigh97 - 105 mmol/LCleveland ClinicCO2 [Moles/Vol]24 mmol/L22 - 30 mmol/LCleveland St. Cloud HospitalCreatinine [Mass/Vol]1.04 mg/dLHigh0.58 - 0.96 mg/dLOhiohealth Shelby HospitalEstimated Glomerular Filtration Rate59 mL/min/1.73mLow>=60 mL/min/1.73mCleveland St. Cloud HospitalGlucose [Mass/Vol]101 mg/dLHigh 74 - 99 mg/dLOhiohealth Shelby HospitalPotassium [Moles/Vol]4.6 mmol/L3.7 - 5.1 mmol/L [facility] HospitalProtein [Mass/Vol]6.2 g/dLLow6.3 - 8.0 g/dLOhiohealth Shelby Hospital Sodium [Moles/Vol]143 mmol/L136 - 144 mmol/LCleveland St[address] Cloud HospitalUrea nitrogen [Mass/Vol]29 mg/dLHigh7 - 21 mg/dLOhiohealth Shelby HospitalVITAMIN D 25 HYDROXYon 74-43-308698288984-mfrzctzunavcju D3 [Mass/Vol]43.4 ng/mL31.0 - 80.0 ng/mLCmercy hospitaland ClinicECG 12 Leadon 44-21-9712VNS reveals atrial flutter with variable AV conductionCPOhio Valley Hospital Work Phone: COLONOSCOPY DIAGNOSTICon 71-19-2506Pneywujud St. Cloud HospitalC3 COMPLEMENT BLDon 87-88-5452Bdgmxaxmdn C3 [Mass/Vol]179 mg/xGGsxb29 - 166 mg/dL [facility] Shelby HospitalC4 COMPLEMENT BLDon 33-32-7657Prwjibuyzu C4 [Mass/Vol]39 mg/dL13 - 46 mg/dLOhiohealth Shelby HospitalCBC W Auto Differential panel (Bld)on 02-04-2023 Basophils (Bld) [#/Vol]0.03 10*3/uL<0.11 k/uLOhiohealth Shelby HospitalBasophils/100 WBC (Bld)0.4 %[facility] Shelby HospitalDifferential cell count method Nom (Bld)AutoCleveland ClinicEosinophils (Bld) [#/Vol]0.26 10*3/uL<0.46 k/uLOhiohealth Shelby Hospital Eosinophils/100 WBC (Bld)3.1 %[facility] Shelby HospitalErythrocyte distribution width (RBC) [Ratio]13.2 %11.5 - 15.0 %[facility] Shelby HospitalHematocrit (Bld) [Volume fraction]41.8 %36.0 - 46.0 %[facility] Shelby HospitalHemoglobin (Bld) [Mass/Vol]13.5 g/dL 11.5 - 15.5 g/dLOhiohealth Shelby HospitalImmature granulocytes (Bld) [#/Vol]<0.10 k/uL [facility] Systemture granulocytes/100 WBC (Bld)0.2 %[facility] Lymphocytes (Bld) [#/Vol]2.04 10*3/uL1.00 - 4.00 k/[facility] Lymphocytes/100 WBC (Bld)24.5 %[facility] Health SystemH (RBC) [Entitic mass]31.3 pg 26.0 - 34.0 pgCCleveland Clinic Akron General Lodi HospitalMCHC (RBC) [Mass/Vol]32.3 g/dL30.5 - 36.0 g/dL Memorial Health SystemV (RBC) [Entitic vol]97.0 fL80.0 - 100.0 fLCCleveland Clinic [facility] Monocytes (Bld) [#/Vol]0.92 10*3/uLHigh<0.87 k/[facility] CenterMonocytes/100 WBC (Bld)11.0 %[facility] Shelby HospitalNeutrophils (Bld) [#/Vol]5.07 10*3/uL1.45 - 7.50 k/[facility] CenterNeutrophils/100 WBC (Bld)60.8 %[facility] HospitalNucleated RBC (Bld) [#/Vol]<0.01 k/[facility] CenterNucleated RBC/100 WBC (Bld) [Ratio]0.0 /100 WBCOhiohealth Shelby HospitalPlatelet mean volume (Bld) [Entitic vol]10.5 fL9.0 - 12.7 fLCCleveland Clinic Akron General Lodi HospitalPlatelets (Bld) [#/Vol]279 10*3/uL150 - 400 k/[facility] CenterRBC (Bld) [#/Vol]4.31 10*6/uL3.90 - 5.20 m/[facility] CenterWBC (Bld) [#/Vol]8.34 10*3/uL3.70 - 11.00 k/[facility] CREATINE KINASEon 38-31-5498WK [Catalytic activity/Vol]377 U/LHigh42 - 196 U/LCmercy hospitaland [facility] Comprehensive metabolic 2000 panelon 82-80-3281Wabavbt [Mass/Vol]4.2 g/dL3.9 - 4.9 g/dLMaxwelton ClinicALP [Catalytic activity/Vol]116 U/L34 - 123 U/LCleveland ClinicALT [Catalytic activity/Vol]20 U/L7 - 38 U/LCleveland ClinicAnion gap [Moles/Vol]14 mmol/L9 - 18 mmol/LCleveland ClinicAST [Catalytic activity/Vol]30 U/L13 - 35 U/LCleveland ClinicBilirubin [Mass/Vol]0.6 mg/dL0.2 - 1.3 mg/dL [facility] ClinicCalcium [Mass/Vol]9.8 mg/dL8.5 - 10.2 mg/dLOhiohealth Shelby Hospital Chloride [Moles/Vol]106 mmol/LHigh97 - 105 mmol/LCleveland ClinicCO2 [Moles/Vol] 20 mmol/LLow22 - 30 mmol/LCleveland ClinicCreatinine [Mass/Vol]1.14 mg/dLHigh 0.58 - 0.96 mg/dLOhiohealth Shelby HospitalEstimated Glomerular Filtration Rate53 mL/min/1.73mLow>=60 mL/min/1.73mCleveland ClinicGlucose [Mass/Vol]82 mg/dL74 - 99 mg/dLOhiohealth Shelby HospitalPotassium [Moles/Vol]5.0 mmol/L3.7 - 5.1 mmol/LCleveland ClinicProtein [Mass/Vol]6.8 g/dL6.3 - 8.0 g/dLTriHealth McCullough-Hyde Memorial Hospitalodium [Moles/Vol]140 mmol/L136 - 144 mmol/LCleveland [address] Cloud HospitalUrea nitrogen [Mass/Vol]24 mg/dLHigh7 - 21 mg/dLOhiohealth Shelby HospitalPROTEIN CREATININE RATIOon 02-04-2023 Protein/Creatinine (U) [Mass ratio]0.08 mg/mg<0.15 mg/mgOhiohealth Shelby Hospital Protein/Creatinine (U) [Mass ratio]on 53-35-1102Ehxeviokny (U) [Mass/Vol]133.7 mg/dL20.0 - 300.0 mg/dLOhiohealth Shelby HospitalProtein (U) [Mass/Vol]11 mg/dL0 - 20 mg/dLOhiohealth Shelby HospitalRHEUMATOID FACTOR BLon 62-76-6676Kgrtrfrtcl factor Qn<16 IU/mLCleveland ClinicUrinalysis complete panel (U)on 51-39-1766Sozfmjhk LM.HPF (Urine sed) [#/Area]RareAbnormalNone Seen /HPFCleParkview Health Bryan HospitalBilirubin Ql (U) NegativeNegativeCletrinity health system east campus ClinicClarity (Unsp spec)ClearClearCleveland Clinic Color (U)YellowYellowCleParkview Health Bryan HospitalEpithelial cells LM.HPF (Urine sed) [#/Area]FewCleParkview Health Bryan HospitalGlucose Test strip (U) [Mass/Vol]NegativeTrace, NegativeOhiohealth Shelby HospitalHemoglobin Ql (U)NegativeNegative, TraceOhiohealth Shelby Hospital Hyaline casts (Urine sed) [#/Area]/[LPF]Abnormal0 /LPFCleveland ClinicKetones Ql (U)NegativeTrace, NegativeOhiohealth Shelby HospitalLeukocyte esterase Test strip Ql (U) 250 Bailey/uLAbnormalNegative, 25 Bailey/uLCleParkview Health Bryan HospitalNitrite Ql (U)1+Abnormal NegativeMaxwelton ClinicpH (U)5.5 [pH]5.0 - 8.0Ohio[facility] Shelby HospitalProtein (U) [Mass/Vol]1+AbnormalTrace, NegativeOhiohealth Shelby HospitalRBC LM.HPF (Urine sed) [#/Area]0-3 /HPF0-3 /HPFTriHealth McCullough-Hyde Memorial Hospitalpecific gravity (U) [Rel density]1.018 1.005 - 1.030Ohiohealth Shelby HospitalUrobilinogen Ql (U)NegativeNegativeOhiohealth Shelby Hospital WBC LM.HPF (Urine sed) [#/Area]/[HPF]Abnormal0-5 /HPFOhiohealth Shelby HospitalCULTURE BLOODon 01-45-0475Xgrwicdejpg examination of blood, cultureCulture Observations: positive aerobic [...] 1 S P Trimethoprim/Sulfamethoxazole 20 S PNormalThe Ohio Valley Surgical HospitalComment on above: Performed By: #### LIPA, MG, CMP #### [facility] [address] [place] [address] Dr. Yilan ChangLACTATE/LACTIC ACIDon 12-52-4419Gisbibt [Moles/Vol]1.0 mmol/L Normal0.4-1.9The [facility] Surgical HospitalComment on above:Performed By: #### LIPSusan, MG, CMP #### [facility] [address] [place] [address] [address] Dank Schwab CULTURE ID PANELon 09-28-2022. baumanniiNot detectedNormal NOT DETECTEDThe [facility] Surgical HospitalCommclaren bay region on above:Performed By: #### LIPA, MG, CMP #### [facility] [address] [place] [address] [address] Dank Mcclure fragilisNot detectedNormalNOT DETECTEDThe [facility] Surgical HospitalComment on above:Performed By: #### LIPA, MG, CMP #### [facility] [address] [place] [address] Dr. Dank Flood CONTROLSPASSKettering Health TroyComment on above: Performed By: #### LIPA, MG, CMP #### [facility] [address] [place] [address] [address] Dank FloodBTJOSE CULTURE BOTTLE [facility] Hospital - TrumbullComment on above:Performed By: #### LIPA, MG, CMP #### [facility] [address] [place] [address] Dr. Dank FloodXaacyCTKBBJ9RMERBZVBOEMLA RESISTANCE GENESCleveland Clinic South Pointe Hospital Comment on above:Performed By: #### LIPA, MG, CMP #### [facility] [address] [place] [address] Dr. Dank Hong2SEE [facility] Valley Health SystemComment on above: Result Comment: Note: Antimicrobial resitance can occur via multiple mechanisms. A Not Detected result for the FilmArray antomicrobial resistance gene assays does not indicate antimicrobial susceptibility. Subculturing is required for species identification and susceptibility testing of isolates.Performed By: #### LIPA, MG, CMP #### [facility] [address] [place] [address] Dr. Dank HongTlvqtURVAIE6NwdqpvwkPdpgcqFuyMain Campus Medical CenterComment on above: Performed By: #### LIPA, MG, CMP #### [facility] [address] [place] [address] [address] Dank FloodNukgbJCMNSK1BelsqpxaZozlqkCah Bellevue HospitalComment on above: Performed By: #### LIPA, MG, CMP #### [facility] [address] [place] [address] [address] Dank SeamanMxqofUWJFJP1RDXZACrqceyYczCleveland Clinic South Pointe HospitalComment on above:Performed By: #### LIPA, MG, CMP #### [facility] [address] [place] [address] [address] Dank Echeverria Set:Set 1NormalThe [facility] Surgical HospitalComment on above: Performed By: #### LIPA, MG, CMP #### [facility] [address] [place] [address] [address] Dank Echeverria:AerobicCleveland Clinic South Pointe HospitalComment on above: Performed By: #### LIPA, MG, CMP #### [facility] [address] [place] [address] [address] Dank Flowers. neoformans/gattiiNot detectedNormalNOT DETECTEDThe McKitrick Hospitalment on above:Performed By: #### LIPA, MG, CMP #### [facility] [address] [place] [address] [address] Dank Murray albicansNot detectedNormalNOT DETECTEDThe [facility] Surgical HospitalComment on above:Performed By: #### LIPA, MG, CMP #### [facility] [address] [place] [address] [address] Dank Murray aurisNot detectedNormalNOT DETECTEDThe [facility] on above:Performed By: #### LIPA, MG, CMP #### [facility] [address] [place] [address] [address] Dank Murray glabrataNot detectedNormalNOT DETECTEDThe [facility] Surgical HospitalComment on above:Performed By: #### LIPA, MG, CMP #### [facility] [address] [place] [address] [address] Dank Murray KruseiNot detectedNormalNOT DETECTEDBellevue Hospital Comment on above:Performed By: #### LIPA, MG, CMP #### [facility] [address] [place] [address] [address] Dank Murray ParapsilosisNot detectedNormalNOT DETECTEDThe [facility] Surgical HospitalComment on above:Performed By: #### LIPA, MG, CMP #### [facility] [address] [place] [address] [address] Dank Murray TropicalisNot detectedNormalNOT DETECTEDThe [facility] HospitalComment on above:Performed By: #### LIPA, MG, CMP #### [facility] [address] [place] [address] [address] Dank LovelaceCTX-M Resistant GeneNot ApplicableNormalNOT DETECTEDThe [facility] HospitalComment on above:Performed By: #### LIPA, MG, CMP #### [facility] [address] [place] [address] [address] Dank Mead. Cloacae complexNot detectedNormalNOT DETECTEDThe [facility] Surgical HospitalCommclaren bay region on above:Performed By: #### LIPA, MG, CMP #### [facility] [address] [place] [address] [address] Dank Mead. faecalisNot detectedNormalNOT DETECTEDBellevue Hospital Comment on above:Performed By: #### LIPA, MG, CMP #### [facility] [address] [place] [address] [address] Dank Garcia faeciumNot detectedNormalNOT DETECTEDThe [facility] Comment on above:Performed By: #### LIPA, MG, CMP #### [facility] [address] [place] [address] [address] Dank MeadnterobacteriaceaeNot detectedNormalNOT DETECTEDThe [facility] HospitalComment on above:Performed By: #### LIPA, MG, CMP #### [facility] [address] [place] [address] [address] Dank Cobbcherichia coliNot detectedNormalNOT DETECTEDThe [facility] HospitalComment on above:Performed By: #### LIPA, MG, CMP #### [facility] [address] [place] [address] [address] Dank Maguire. influenzaeNot detectedNormalNOT DETECTEDThe [facility] Comment on above:Performed By: #### LIPA, MG, CMP #### [facility] [address] [place] [address] [address] Dank Barton Resistant GeneNot ApplicableNormalNOT DETECTEDThe [facility] HospitalComment on above:Performed By: #### LIPA, MG, CMP #### [facility] [address] [place] [address] [address] Dank Mahajan. oxytocaNot detectedNormalNOT DETECTEDThe [facility] Comment on above:Performed By: #### LIPA, MG, CMP #### [facility] [address] [place] [address] [address] Dank Cristina pneumoniaeNot detectedNormalNOT DETECTEDThe [facility] Comment on above:Performed By: #### LIPA, MG, CMP #### [facility] [address] [place] [address] [address] Dank Sterlingella aerogenesNot detectedNormalNOT DETECTEDThe [facility] Surgical HospitalCommclaren bay region on above:Performed By: #### LIPA, MG, CMP #### [facility] [address] [place] [address] [address] Dank LovelaceKPC Resistant GeneNot ApplicableNormalNOT DETECTEDThe [facility] HospitalComment on above:Performed By: #### LIPA, MG, CMP #### [facility] [address] [place] [address] [address] Dank Andres. monocytogenesNot detectedNormalNOT DETECTEDThe [facility] HospitalCommclaren bay region on above:Performed By: #### LIPA, MG, CMP #### [facility] [address] [place] [address] [address] Dank LovelaceMcr-1 Resistant GeneNot ApplicableNormalNOT DETECTEDThe [facility] HospitalComment on above:Performed By: #### LIPA, MG, CMP #### [facility] [address] [place] [address] [address] Dank Dominguez/CDetectedAbnormalNOT DETECTEDThe [facility] HospitalComment on above:Performed By: #### LIPA, MG, CMP #### [facility] [address] [place] [address] [address] Dank Dominguez/C MREJNot ApplicableNormalNOT DETECTEDBellevue Hospital Comment on above:Performed By: #### LIPA, MG, CMP #### [facility] [address] [place] [address] [address] Dank Sexton. meningitidisNot detectedNormalNOT DETECTEDThe [facility] HospitalComment on above:Performed By: #### LIPA, MG, CMP #### [facility] [address] [place] [address] [address] Dank Rose Resistant GeneNot ApplicableNormalNOT DETECTEDThe [facility] HospitalCommclaren bay region on above:Performed By: #### LIPA, MG, CMP #### [facility] [address] [place] [address] Dr. Dank CastanedaRfyrkUqg-46-bdflSgu ApplicableNormalNOT DETECTEDBellevue Hospital Comment on above:Performed By: #### LIPA, MG, CMP #### [facility] [address] [place] [address] [address] Dank LovelaceProteusNot detectedNormalNOT DETECTEDThe [facility] HospitalCommclaren bay region on above:Performed By: #### LIPA, MG, CMP #### [facility] [address] [place] [address] Dr. Dank Boyd. aeruginosaNot detectedNormalNOT DETECTEDThe [facility] HospitalComment on above:Performed By: #### LIPA, MG, CMP #### [facility] [address] [place] [address] Dr. Dank Carcamo. maltophiliaNot detectedNormalNOT DETECTEDBellevue Hospital Comment on above:Performed By: #### LIPA, MG, CMP #### [facility] [address] [place] [address] [address] Dank Kennedyatia marcescensNot detectedNormalNOT DETECTEDThe [facility] on above:Performed By: #### LIPA, MG, CMP #### [facility] [address] [place] [address] [address] Dank Alford:vinicio a/cNormalThe [facility] Surgical HospitalComment on above:Performed By: #### LIPA, MG, CMP #### [facility] [address] [place] [address] [address] Dank Coffey. aureusNot detectedNormalNOT DETECTEDThe [facility] on above:Performed By: #### LIPA, MG, CMP #### [facility] [address] [place] [address] [address] Dank Coffey. epidermidisDetectedCritically abnormalNOT DETECTEDThe [facility] on above:Performed By: #### LIPA, MG, CMP #### [facility] [address] [place] [address] [address] Dank Coffey. lugdunensisNot detectedNormalNOT DETECTEDThe [facility] on above:Performed By: #### LIPA, MG, CMP #### [facility] [address] [place] [address] [address] Dank AnayaococcusDetectedCritically abnormalNOT DETECTEDThe [facility] on above:Performed By: #### LIPA, MG, CMP #### [facility] [address] [place] [address] [address] Dank Knight. agalactiaeNot detectedNormalNOT DETECTEDThe [facility] on above:Performed By: #### LIPA, MG, CMP #### [facility] [address] [place] [address] [address] Dank Knight. pneumoniaeNot detectedNormalNOT DETECTEDThe [facility] on above:Performed By: #### LIPA, MG, CMP #### [facility] [address] [place] [address] [address] Dank Knight. pyogenesNot detectedNormalNOT DETECTEDThe [facility] on above:Performed By: #### LIPA, MG, CMP #### [facility] [address] [place] [address] [address] Dank ClaytonreptococcusNot detectedNormalNOT DETECTEDThe [facility] Comment on above:Performed By: #### LIPA, MG, CMP #### [facility] [address] [place] [address] [address] Dank Guerra/Hakan Resist. GeneNot ApplicableNormalNOT DETECTEDThe [facility] Surgical HospitalComment on above:Performed By: #### LIPA, MG, CMP #### [facility] [address] [place] [address] [address] Dank Perez Resistant GeneNot ApplicableNormalNOT DETECTEDThe [facility] HospitalComment on above:Performed By: #### LIPA, MG, CMP #### [facility] [address] [place] [address] Dr. Dank Orellana 39-47-3917Nsocakamwxu peptide B (Bld) [Mass/Vol]282.0 pg/mL Normal<=900.0The [facility] Surgical HospitalComment on above:Performed By: #### CMP, LIPA, TSH, BNP, CMADM #### [facility] [address] [place] [address] [address] Dank Perez DENIS ADMITon 76-64-9482NY [Catalytic activity/Vol]254 U/L Critically knmr14-326Jqr [facility] HospitalComment on above:Performed By: #### CMP, LIPA, TSH, BNP, CMADM #### [facility] [address] [place] [address] [address] Dank Yanez.MB [Mass/Vol]2.31 ng/mLNormal<=3.60[facility] Comment on above:Performed By: #### CMP, LIPA, TSH, BNP, CMADM #### [facility] [address] [address] [address] Dank Jaramillo10.2 pg/mLNormal4.0-51.3The [facility] HospitalComment on above:Result Comment: CUT-OFF POINTS HAVE BEEN ESTABLISHED BASED ON THE FOURTH UNIVERSAL DEFINITIONS OF MYOCARDIAL INFARCTION. THE UPPER REFERENCE LIMIT (URL) OF TROPONIN, DEFINED THE 99TH PERCENTILE OF cTnI DISTRIBUTION IN A REFERENCE POPULATION, HAS BEEN CONFIRMED THE DECISION THRESHOLD FOR ME DIAGNOSIS.Performed By: #### CMP, LIPA, TSH, BNP, CMADM #### [facility] [address] [address] [address] Dank SalasO454 ng/mLCritically high9-82B[facility]vue HospitalComment on above:Performed By: #### CMP, LIPA, TSH, BNP, CMADM #### [facility] [address] [address] [address] Dank Garcia AUTO DIFFon 75-62-7595QITH #0.0 103/ulNormal0.0-0.1The [facility] Surgical HospitalComment on above:Performed By: #### LIPA, MG, CMP #### [facility] [facility] [address] [place] [address] Dr. Dank LovelaceBasophils/100 WBC (Bld)0.2 %Normal0.2-2.0[facility] Comment on above:Performed By: #### LIPA, MG, CMP #### [facility] [address] [place] [address] Dr. Dank Ferro #0.1 103/ulNormal0.0-0.7The [place] [facility] HospitalComment on above: Performed By: #### LIPA, MG, CMP #### [facility] [address] [place] [address] Dr. Dank Meadosinophils/100 WBC (Bld)0.5 %Critically low0.9-7.0The [place] [facility] HospitalComment on above:Performed By: #### LIPA, MG, CMP #### [facility] [address] [place] [address] Dr. Dank Meadrythrocyte distribution width (RBC) [Ratio]13.2 %Sdfyfu43.0-15.0 [facility]Comment on above:Performed By: #### LIPA, MG, CMP #### [facility] [address] [place] [address] Dr. Dank LovelaceHematocrit (Bld) [Volume fraction]41.5 %Xdbcrc49.0-48.0The [place] [facility] HospitalComment on above:Performed By: #### LIPA, MG, CMP #### [facility] [address] [place] [address] Dr. Dank LovelaceHemoglobin (Bld) [Mass/Vol]14.1 g/qJTkxqdk25.0-16.0The [place] [facility] HospitalComment on above:Performed By: #### LIPA, MG, CMP #### [facility] [address] [place] [address] Dr. Dank Gallegos #0.02 10e3/ulNormal0.00-0.03The [place] [facility] HospitalComment on above:Performed By: #### LIPA, MG, CMP #### [facility] [address] [place] [address] Dr. Dank Gallegos %0.2 %Normal0.0-0.5The [place] [facility] HospitalComment on above: Performed By: #### LIPA, MG, CMP #### [facility] [address] [place] [address] Dr. Dank Mitchell #0.7 103/ulCritically low1.2-3.8The [facility] Comment on above:Performed By: #### LIPA, MG, CMP #### [facility] [address] [place] [address] Dr. Dank Fordhocytes/100 WBC (Bld)7.3 %Critically low20.5-60.0The [place] [facility] HospitalComment on above:Performed By: #### LIPA, MG, CMP #### [facility] [address] [place] [address] Dr. Dank CasonUAL DIFF REQNONormalThe [place] [facility] HospitalComment on above: Performed By: #### LIPA, MG, CMP #### [facility] [address] [place] [address] Dr. Dank Hollins (RBC) [Entitic mass]31.5 hjDybafx14.7-34.0The [place] [facility] HospitalComment on above:Performed By: #### LIPA, MG, CMP #### [facility] [address] [place] [address] Dr. Dank Crow (RBC) [Mass/Vol]34.0 g/hYTjodbl06.9-35.2The [place] [facility] HospitalComment on above:Performed By: #### LIPA, MG, CMP #### [facility] [address] [place] [address] Dr. Dank Crow (RBC) [Entitic vol]92.6 xZUjhfrx48.0-99.0The [place] [facility] HospitalComment on above:Performed By: #### LIPA, MG, CMP #### [facility] [address] [place] [address] Dr. Dank Tavarez #0.7 103/ulNormal0.3-0.8The [place] [facility] HospitalComment on above:Performed By: #### LIPA, MG, CMP #### [facility] [address] [place] [address] Dr. Dank Guamanocytes/100 WBC (Bld)7.1 %Normal1.7-12.0The [facility] Comment on above:Performed By: #### LIPA, MG, CMP #### [facility] [address] [place] [address] Dr. Dank Pinon #8.5 103/ulCritically high1.4-6.5The [facility] Comment on above:Performed By: #### LIPA, MG, CMP #### [facility] [address] [place] [address] Dr. Dank Andersenophils/100 WBC (Bld)84.7 %Critically high43.0-75.0The [place] [facility] HospitalComment on above:Performed By: #### LIPA, MG, CMP #### [facility] [address] [place] [address] Dr. Dank Arias mean volume (Bld) [Entitic vol]10.3 fLNormal9.5-13.5The [place] [facility] HospitalComment on above:Performed By: #### LIPA, MG, CMP #### [facility] [address] [place], [place] [address] Dr. Dank LovelacePLT247 103/goTitvpp263-443Fek [facility] Hospitalment on above: Performed By: #### LIPA, MG, CMP #### [facility] [address] [place], [place] [address] Dr. Dank LovelaceRBC4.48 106/ulNormal4.20-5.40The [place] [facility] HospitalComment on above:Performed By: #### LIPA, MG, CMP #### [facility] [address] [place], [place] [address] Dr. Dank LovelaceWBC10.1 103/ulNormal4.0-11.0The [facility] on above:Performed By: #### LIPA, MG, CMP #### [facility] [address] [place] [address] Dr. Dank LovelaceCT ABD/PELVIS WO CONon [id number] ABD/PELVIS WO CONEXAM: CT SCAN OF THE [...] ovarian cyst in a postmenopausal female. Outpatient PIPE WELDER consultation may help better delineate. 5. Nonobstructing left-sided nephrocalcinosis. 6. Otherwise unremarkable noncontrast CT of the abdomen and pelvis for acute pathology. Electronically authenticated by: JENA WEN Date: 2022-09-28 21:24[facility] HospitalCULTURE BLOODon [id number] examination of blood, cultureCulture Observations: NO GROWTH AT 5 DAYS.NormalBellevue HospitalComment on above:Performed By: #### LIPSusan, MG, CMP #### [facility] [address] [place] [address] Dr. Dank Keith-19 PCR (CVDTB)on [id number]-CoV-2 (COVID-19) RNA RAVIN+probe Ql (Unsp spec)Not detectedNormalNOT DETECTEDThe [facility] Comment on above:Result Comment: When diagnostic testing [...] this test is supported by the Senior Database Engineer of Health and Human Service's declaration that [...] used).Performed By: #### LIPA, MG, CMP #### [facility] [address] [place] [address] Dr. Dank Renner URINE PROFILEon 74-66-9362Dggnyszvs Ql (U)SMALLAbnormal NEGATIVEBellevue HospitalComment on above:Performed By: #### LIPA, MG, CMP #### [facility] [address] [place] [address] Dr. Dank LovelaceClarity (U)CLEARNormalCLEARBellevue HospitalComment on above: Performed By: #### LIPA, MG, CMP #### [facility] [address] [place] [address] Dr. Dank Estrella (U)DK. YELLOWNormalYELLOWBellevue HospitalComment on above:Performed By: #### LIPA, MG, CMP #### [facility] [address] [place] [address] Dr. Dank Bravo micrscopic examination will be performed if indicated. NormalBellevue HospitalComment on above:Performed By: #### LIPA, MG, CMP #### [facility] [address] [place] [address] Dr. Dank LovelaecGlucose Ql (U)NegativeNormalNEGATIVEBellevue HospitalComment on above:Performed By: #### LIPA, MG, CMP #### [facility] [address] [place] [address] Dr. Dank LovelaceHemoglobin Ql (U)NegativeNormalNEGATIVEB[facility] Comment on above:Performed By: #### LIPA, MG, CMP #### [facility] [address] [place] [address] Dr. Dank LovelaceKetones Ql (U)NegativeNormalNEGATIVEBellevue HospitalComment on above:Performed By: #### LIPA, MG, CMP #### [facility] [address] [place] [address] [address] Dank LovelaceLEUKOCYTESNegativeNormalNEGATIVEThe [place] [facility] HospitalComment on above:Performed By: #### LIPA, MG, CMP #### [facility] [address] [place] [address] [address] Dank LovelaceNitrite Ql (U)NegativeNormalNEGATIVEThe [place] [facility] HospitalComment on above:Performed By: #### LIPA, MG, CMP #### [facility] [address] [place] [address] [address] Dank LovelacepH (U)5.5 [pH]Normal5-9The [place] [facility] HospitalComment on above: Performed By: #### LIPA, MG, CMP #### [facility] [address] [place] [address] Dr. Dank LovelaceSPEC GRAVITY1.456Xvedxf4.005-<=1.025The [place] [facility] HospitalComment on above:Performed By: #### LIPA, MG, CMP #### [facility] [address] [place] [address] Dr. Dank Mora PROTEINTRACENormalNEGATIVE/ TRACEThe [place] [facility] HospitalComment on above:Performed By: #### LIPA, MG, CMP #### [facility] [address] [place] [address] Dr. Dank Bautista MICRO INDNOT INDICATEDNormalThe [place] [facility] HospitalComment on above:Performed By: #### LIPA, MG, CMP #### [facility] [address] [place] [address] Dr. Dank Gordilloinogen Qn (U)0.2 {Simon'U}/dLNormal0.2 - 1.0The [place] [facility] HospitalCommclaren bay region on above:Performed By: #### LIPA, MG, CMP #### [facility] [address] [place] [address] Dr. Dank Sharif PANEL (PCR)on 99-68-4841Hfwnzpprwo F 40/41Not detectedNormal NOT DETECTEDThe [place] [facility] HospitalComment on above:Performed By: #### GIPANEL #### [facility] [address] [place] [address] [address] aDnk LovelaceAstrovirusNot detectedNormalNOT DETECTEDThe [facility] Comment on above:Performed By: #### GIPANEL #### [facility] [address] [place] [address] [address] Dank Flowers. Diff toxin A/BDetectedCritically abnormalNOT DETECTEDThe [place] [facility] HospitalComment on above:Performed By: #### GIPANEL #### [facility] [address] [place] [address] [address] Dank KohlipylobacterNot detectedNormalNOT DETECTEDThe [facility] Comment on above:Performed By: #### GIPANEL #### [facility] [address] [place] [address] [address] Dank LovelaceCryptosporidiumNot detectedNormalNOT DETECTEDThe [place] [facility] HospitalComment on above:Performed By: #### GIPANEL #### [facility] [address] [place] [address] [address] Dank Bradford. CayetanensisNot detectedNormalNOT DETECTEDThe [place] [facility] HospitalCommclaren [facility] region on above:Performed By: #### GIPANEL #### [facility] [address] [place] [address] [address] Dank Garcia Coli L154Axg ApplicableNormalNot ApplicableThe [place] [facility] HospitalComment on above:Performed By: #### GIPANEL #### [facility] [address] [place] [address] [address] Dank Garcia histolyticaNot detectedNormalNOT DETECTEDThe [facility] Comment on above:Performed By: #### GIPANEL #### [facility] [address] [place] [address] [address] Dank MeadAECNot detectedNormalNOT DETECTEDThe [place] [facility] HospitalComment on above:Performed By: #### GIPANEL #### [facility] [address] [place] [address] [address] Dank MeadIECNot detectedNormalNOT DETECTEDThe [place] [facility] HospitalComment on above:Performed By: #### GIPANEL #### [facility] [address] [place] [address] [address] Dank MeadPECNot detectedNormalNOT DETECTEDThe [place] [facility] HospitalCommclaren [facility] region on above:Performed By: #### ADELEANEL #### [facility] [address] [place] [address] [address] Dank MeadTECNot detectedNormalNOT DETECTEDThe [place] [facility] HospitalComment on above:Performed By: #### ADELEANEL #### [facility] [address] [address] [address] Dank Ann LambliaNot detectedNormalNOT DETECTEDThe [facility] Comment on above:Performed By: #### ADELEANEL #### [facility] [address] [place] [address] [address] Dank Astorga CONTROLSGrant HospitalCommclaren bay region on above:Performed By: #### CAROLINAL #### [facility] [address] [address] [address] Dank Macedo [facility] HEADERGI PANEL [facility] Comment on above:Performed By: #### ADELEANEL #### [facility] [address] [place] [address] [address] Dank Jolly ECOLIGI PANEL DIARRHEAGENIC E.COLI / SHIGELLACleveland Clinic South Pointe HospitalCommclaren bay region on above:Performed By: #### ADELEANEL #### [facility] [address] [place] [address] [address] Dank Jolly INFODiley Ridge Medical CenterCommclaren bay region on above: Result Comment: EAEC- Enteroaggregative E. Coli EPEC- Enteropathogenic E. Coli ETEC- Enterotoxigenic E. Coli lt/st STEC- Shigella-like toxin-producing E. Coli stx1/stx2 EIEC- Shigella/Enteroinvasive E. ColiPerformed By: #### ADELEANEL #### [facility] [address] [place] [address] [address] Dank Jolly PARASITESGI PANEL PARASITESCleveland Clinic South [facility] Hospital Comment on above:Performed By: #### GIPANEL #### [facility] [address] [place] [address] [address] Dank SharifPNLHD VIRUSGI PANEL VIRUSESCleveland Clinic South Pointe HospitalComment on above:Performed By: #### GIPANEL #### [facility] [address] [place] [address] [address] Dank Padillarovirus GI/GIIDetectedAbnormalNOT DETECTEDThe [facility] Comment on above:Performed By: #### GIPANEL #### [facility] [address] [place] [address] [address] Dank Carr ShigelloidesNot detectedNormalNOT DETECTEDThe [place] [facility] HospitalComment on above:Performed By: #### ADELEANEL #### [facility] [address] [place] [address] [address] Dank LovelaceRotavirus ANot detectedNormalNOT DETECTED[facility] Comment on above:Performed By: #### ADELEANEL #### [facility] [address] [place] [address] [address] Dank LovelaceSapovirusNot detectedNormalNOT DETECTEDB[facility] Comment on above:Performed By: #### ADELEANEL #### [facility] [address] [place] [address] [address] Dank LovelaceSTECNot detectedNormalNOT DETECTEDThe [place] [facility] HospitalComment on above:Performed By: #### ADELEANEL #### [facility] [address] [place] [address] [address] Dank JonesbrioNot detectedNormalNOT DETECTEDThe [place] [facility] HospitalComment on above:Performed By: #### ADELEANEL #### [facility] [address] [place] [address] [address] Dank Limaio CholeraNot detectedNormalNOT DETECTED[facility] Comment on above:Performed By: #### GIPANEL #### [facility] [address] [place] [address] [address] Dank Sauceda. EnterocoliticaNot detectedNormalNOT DETECTEDThe [place] [facility] HospitalComment on above:Performed By: #### GIPANEL #### [facility] [address] [place] [address] [address] Dank LovelaceSalmonellaNot detectedNormalNOT DETECTEDThe [facility] Comment on above:Performed By: #### GIPANEL #### [facility] [address] [place] [address] [address] Dank LovelacePerformed By: #### LIPA, MG, CMP #### [facility] [address] [place] [address] Dr. Dank Garces A AND B AGon [id number] A AGNegativeNormal NEGATIVE SEE COMMENTThe [place] [facility] HospitalComment on above:Performed By: #### LIPA, MG, CMP #### [facility] [address] [place] [address] Dr. Dank Mcclendon AGNegativeNormalNEGATIVE SEE COMMENTThe [place] [facility] HospitalComment on above:Performed By: #### LIPA, MG, CMP #### [facility] [address] [place] [address] Dr. Dank LovelaceLACTATE/LACTIC ACIDon 90-67-9520Yghowwj [Moles/Vol]2.2 mmol/L Critically high0.4-1.9The [place] [facility] HospitalComment on above:Performed By: #### LIPA, MG, CMP #### [facility] [address] [place] [address] Dr. Dank LovelaceLIPASEon 82-25-8382Twcqdn [Catalytic activity/Vol]36.0 U/L Critically low73.0-393.0The [place] [facility] HospitalComment on above:Performed By: #### CMP, LIPA, TSH, BNP, CMADM #### [facility] [address] [place] [address] Dr. Dank LovelacePROSaad 14(COMP METB)on 25-46-6431Hxlyjgy [Mass/Vol]3.7 g/dLNormal 3.4-5.0The [place] [facility] HospitalComment on above:Performed By: #### CMP, LIPA, TSH, BNP, CMADM #### [facility] [address] [place] [address] Dr. Dank LovelaceAlbumin/Globulin [Mass ratio]1.1 {ratio}NormalThe [place] [facility] HospitalComment on above:Performed By: #### CMP, LIPA, TSH, BNP, CMADM #### [facility] [address] [place] [address] Dr. Dank Acosta [Catalytic activity/Vol]110 U/IHebasq84-990Ylb [facility] HospitalComment on above:Performed By: #### CMP, LIPA, TSH, BNP, CMADM #### [facility] [address] [place] [address] Dr. Dank Choi [Catalytic activity/Vol]33 U/VMjongf37-71Aak [facility] HospitalComment on above:Performed By: #### CMP, LIPA, TSH, BNP, CMADM #### [facility] [address] [place] [address] Dr. Dank Jennings gap [Moles/Vol]20.3 mmol/LNormalB[facility] Comment on above:Performed By: #### CMP, LIPA, TSH, BNP, CMADM #### [facility] [address] [place] [address] Dr. Dank Plata [Catalytic activity/Vol]31 U/GZwqkjj53-22Caz [facility] Hospitalment on above:Performed By: #### CMP, LIPA, TSH, BNP, CMADM #### [facility] [address] [place] [address] Dr. Dank LovelaceBilirubin [Mass/Vol]0.9 mg/dLNormal0.2-1.0The [facility] Comment on above:Performed By: #### CMP, LIPA, TSH, BNP, CMADM #### [facility] [address] [place] [address] Dr. Dank LovelaceCalcium [Mass/Vol]9.2 mg/dLNormal8.5-10.1[facility] Comment on above:Performed By: #### CMP, LIPA, TSH, BNP, CMADM #### [facility] [address] [place] [address] Dr. Dank LovelaceChloride [Moles/Vol]105 mmol/OQtvhur12-916Hyv [facility] Comment on above:Performed By: #### CMP, LIPA, TSH, BNP, CMADM #### [facility] [address] [place] [address] Dr. Dank LovelaceCO2 [Moles/Vol]16.6 mmol/LCritically low21.0-32.0The [place] [facility] HospitalComment on above:Performed By: #### CMP, LIPA, TSH, BNP, CMADM #### [facility] [address] [place] [address] Dr. Dank LovelaceCreatinine [Mass/Vol]1.27 mg/dLCritically high0.55-1.02The [place] [facility] HospitalComment on above:Performed By: #### CMP, LIPA, TSH, BNP, CMADM #### [facility] [address] [place] [address] Dr. Dank MeadGFR-AF ICTNUXZG17 mL/min/1.23q1Mbclwiygqn low>=60The [place] [facility] HospitalComment on above:Performed By: #### CMP, LIPA, TSH, BNP, CMADM #### [facility] [address] [place] [address] Dr. Dank MeadGFR-NON AF OBVGXUCD74 mL/min/1.34f9Xcoovtwpwv low>=60The [place] [facility] HospitalComment on above:Performed By: #### CMP, LIPA, TSH, BNP, CMADM #### [facility] [address] [place] [address] Dr. Dank LovelaceGlobulin (S) [Mass/Vol]3.3 g/dLNormalThe [place] [facility] HospitalComment on above:Performed By: #### CMP, LIPA, TSH, BNP, CMADM #### [facility] [address] [place] [address] Dr. Dank LovelaceGlucose [Mass/Vol]125 mg/dLCritically kosq43-686Zuu [facility] HospitalComment on above:Performed By: #### CMP, LIPA, TSH, BNP, CMADM #### [facility] [address] [address] [address] Dank LovelacePotassium [Moles/Vol]3.9 mmol/LNormal3.5-5.1The [facility] Comment on above:Performed By: #### CMP, LIPA, TSH, BNP, CMADM #### [facility] [address] [place] [address] Dr. Dank LovelaceProtein [Mass/Vol]7.0 g/dLNormal6.4-8.2The [facility] Comment on above:Performed By: #### CMP, LIPA, TSH, BNP, CMADM #### [facility] [address] [place] [address] Dr. Dank LovelaceSodium [Moles/Vol]138 mmol/QTippek075-303Hcj [facility] Comment on above:Performed By: #### CMP, LIPA, TSH, BNP, CMADM #### [facility] [address] [place] [address] Dr. Dank LovelaceUrea nitrogen [Mass/Vol]25.0 mg/dLCritically high7.0-18.0The [place] [facility] HospitalComment on above:Performed By: #### CMP, LIPA, TSH, BNP, CMADM #### [facility] [address] [place] [address] Dr. Dank LovelaceUrea nitrogen/Creatinine [Mass ratio]19.7 mg/mgNormalThe [place] [facility] HospitalComment on above:Performed By: #### CMP, LIPA, TSH, BNP, CMADM #### [facility] [address] [place] [address] Dr. Dank Grant 26-71-1994SBD9.091 uIU/mLNormal0.358-3.740The [place] [facility] HospitalComment on above:Performed By: #### CMP, LIPA, TSH, BNP, CMADM #### [facility] [address] [place] [address] Dr. Dank LovelaceXR CHEST 1 Von [id number] CHEST 1 VEXAMINATION: XR CHEST 1 V HISTORY: Abdominal pain and diarrhea COMPARISON: None. TECHNIQUE: Portable chest FINDINGS: The lung parenchyma is free of consolidation or infiltrate. No pneumothorax or pleural effusion. The cardiac, mediastinal and hilar contours are normal. The visualized osseous structures exhibit no gross abnormality. IMPRESSION: No acute cardiopulmonary abnormality. Electronically authenticated by: SENAIT KELSEY Date: 2022-09-28 20:42[facility] HospitalEchocardiogramon [id number], [address] [place] [address] TRANSTHORACIC ECHOCARDIOGRAM REPORT Patient Name: JESUS Recio Physician: [id number] Yuriy Conway MD, [facility] Study Date: 09/17/2022 Referring YURIY CONWAY Physician: MRN/PID: [id number] PCP: Wojciech Treviño MD Accession/Order#: [id number] Department [facility] Location: Date of : 1955 Fellow: Gender: F Nurse: Rima Nesbitt RN Admit Date: Drupal Programmer: Yulia Ayers RDCS, RVT Height: 170.18 cm CC Report to: Weight: 112.04 kg Study Type: Echocardiogram BSA: 2.21 m2 Blood Pressure: 114 /72 mmHg Diagnosis/ICD: I48.0-Paroxysmal atrial fibrillation; I71.20-Thoracic aortic aneurysm, without rupture, unspecified Indication: Atrial Fibrillation/Flutter-s/p Ablation, HTN, Hyperlipidemia, Lupus, MONI, Obesity, Hyperparatyroid Disease-s/p Resection Procedure/CPT: Echo Complete w Full Doppler-46970 Study Detail: The following Echo studies were [...] 0.7 m/s (0.6-0.9m/s) PV Max P.0 mmHg [id number] Yuriy Conway MD, [facility] Electronically signed on 09/18/2022 at 5:16:24 PM Final NormalEast Morgan County HospitalCovid-19 PCR (CVDTBH)on 08-25-2022 SARS-CoV-2 (COVID-19) RNA RAVIN+probe Ql (Unsp spec)Not detectedNormalNOT DETECTED The [place] [facility] HospitalComment on above:Result Comment: This test is not yet approved or cleared by the [place] FDA. When there are no FDA-approved or cleared tests available, and other criteria are met, FDA can make tests available under an emergency access mechanism called an Emergency Use Authorization (EUA). The EUA for this test is supported by the Senior Database Engineer of Health and Human Service's (HHS's) declaration [...] SARS-CoV-2.Performed By: #### LIPSusan, MG, CMP #### [facility] [address] [place] [address] Dr. Dank Murguia CARDIAC STRESS/REST INJECTIONon [id number] CARDIAC STRESS/REST INJECTIONMRN: [id number] Patient Name: JESUS WOLF STUDY: MYOCARDIAL PERFUSION STRESS TEST WITH LEXISCAN Performing facility: [facility], [address] [place] [address], [address], [address] Provider: Yuriy Conway MD, FACC PCP: Dr. Treviño Supervising provider: Dennise Danielson INDICATION: HTN Hyperlipidemia A-fib Pre-operative risk assessment for Parathyroid scheduled at [facility] on 08-27-22. HISTORY: Gender: F; Age: 67 y/o ; Height: 170.1 cm; Weight: 123.1 kg. High Cholesterol; Arrhythmias; HTN; Lupus Denies smoking. COMPARISON: No comparison. ACCESSION NUMBER(S): [id number]; [id number]; [id number] ORDERING CLINICIAN: YURIY OCNWAY TECHNIQUE: TWO DAY protocol. Stress injection: Date:08-15-22, [...] for comparison. Electronically signed by: ALINE SOUZA MDEndless Mountains Health SystemsNo Panel Informationon [id number] Municipal Hospital – [place] 600 DO Work Phone: Office Visit (Cardiology)on [phone]-up visit Diagnoses/Problems Assessed Paroxysmal atrial fibrillation (427.31) [...] Echocardiogram; Status:Hold For - Scheduling,Retrospective Authorization; Requested for:[id number]; Class 2 severe obesity with serious comorbidity and body mass index (BMI) of 38.0 to 38.9 in adult Healthy Weight Tips; Status:Complete - Retrospective Authorization; Done: [id number] Some eating tips that can help you lose weight.; Status:Complete - Retrospective Authorization; Done: [id number] Essential hypertension, benign, Hyperlipidemia, Paroxysmal atrial fibrillation, Preoperative clearance NM Cardiac Stress/Rest Nuclear Med Order; Status:Hold For - Scheduling,Retrospective Authorization; Requested for:[id number]; Radiologist to Determine Optimal Study : Y What are the patient's signs and symptoms? : preop, paf, hdl, htn Paroxysmal atrial fibrillation IO EKG Electrocardiogram- 12 Lead; Status:Complete; Done: [id number] SocHx: Never a smoker Tobacco Use Screening; Status:Complete; Done: [id number] Patient Instructions Please bring all medicines, vitamins, [...] scheduled in August for parathyroid surgery at [facility], they will be faxing request for clearance. Follow up in 1 year. Chief Complaint JESUS WOLF is being seen for an annual follow-up of. Patient is in the office after more than 2 years hiatus where [facility] She is in need for cardiac clearance prior to surgery. The patient has done well in thelast couple of years but was not very happy with the care she was receiving at the [facility]. She had ablation for atrial fibrillation couple years back at [facility] with Dr. Chino with no recurrences. She is not on antiarrhythmic therapy but has been on anticoagulation with Eliquis. She has no indication previous coronary heart disease but never had a stress test or cardiac catheterization. Her last echocardiogram from September 2021 at the [facility] revealed mildly dila manjinder ascending aorta [...] ablation with pulmonary vein isolation at [facility] in 2019. She will continue on Eliquis [...] 8. Systemic Lupus managed by rheumatology at [facility] on multiple medications and stable 9. [...] past medication was advised. Yuriy Conway MD, [facility] Surgical History Problems History of Appendectomy History of Cyst excision History of Foot surgery History of Hip replacement History of Tonsillectomy Past Medical History Problems History of Diastolic heart failure (428.30) (I5 (more content not included)... NormalUH TouchworksTobacco Screening.on 06-00-1372Eejri depression screening assessmentNoProvidence Regional Medical Center [place] Slidely 250 DO Work Phone: Fall risk assessmenta) No falls within the last year -[facility] Slidely 250 DO Work Phone: Tobacco use status CPHSb) NoM-[facility] Sherry 250 DO Work Phone: No Panel Informationon [id number] [facility] Comprehensive metabolic 2000 panelon 99-75-6497Xosfosc [Mass/Vol]4.2 g/dL3.9 - 4.9 g/dLMaxwelton ClinicALP [Catalytic activity/Vol]134 U/LHigh34 - 123 U/L [facility] ClinicALT [Catalytic activity/Vol]20 U/L7 - 38 U/LCleveland [facility] Anion gap [Moles/Vol]11 mmol/L9 - 18 mmol/LCleveland ClinicAST [Catalytic activity/Vol]23 U/L13 - 35 U/LCleveland [facility] HospitalBilirubin [Mass/Vol]0.5 mg/dL0.2 - 1.3 mg/dLMaxwelton ClinicCalcium [Mass/Vol]10.4 mg/dLHigh8.5 - 10.2 mg/dL [facility] ClinicChloride [Moles/Vol]109 mmol/LHigh97 - 105 mmol/LCleveland ClinicCO2 [Moles/Vol]22 mmol/L22 - 30 mmol/LCleveland [facility] HospitalCreatinine [Mass/Vol]1.27 mg/dLHigh0.58 - 0.96 mg/dLOhiohealth Shelby HospitalEstimated Glomerular Filtration Rate47 mL/min/1.73mLow>=60 mL/min/1.73mCleveland ClinicGlucose [Mass/Vol]104 mg/gECfut39 - 99 mg/dLOhiohealth Shelby HospitalPotassium [Moles/Vol]5.6 mmol/LHigh3.7 - 5.1 mmol/LCleveland ClinicProtein [Mass/Vol]5.8 g/dLLow6.3 - 8.0 g/dLMaxwelton ClinicSodium [Moles/Vol]142 mmol/L136 - 144 mmol/LCleveland [address] Cloud HospitalUrea nitrogen [Mass/Vol]33 mg/dLHigh7 - 21 mg/dLOhiohealth Shelby HospitalPTH INTACT BLDon 03-36-9222Hywxldhggf.intact [Mass/Vol]89 pg/dBDuan21 - 65 pg/mLCleveland Clinic1,25-dihydroxyvitamin D3 [Mass/Vol]on ,25 Dihydroxy Vitamin Total35.6 pg/mL19.9 - 79.3 pg/mLCleveland St. Cloud HospitalVITAMIN D 25 HYDROXYon [id number]-cyolnpracasamd D3 [Mass/Vol]58.2 ng/mL31.0 - 80.0 ng/mLCleveland ClinicPTH INTACT BLDon 59-37-2426Lvazhpnlkh.intact [Mass/Vol]83 pg/hYCwlg60 - 65 pg/mLCleveland ClinicDXA-AXIAL SKELETONon 26-26-1997JJVOLG T-SCORE-2.1Cleveland Zsopbh5178 NOVEL CORONAVIRUS (COVID-19)on 59-83-5727GDNZ-CoV-2 (COVID-19) RNA RAVIN+probe Ql (Unsp spec)NegativeOhiohealth Shelby HospitalCB W Auto Differential panel (Bld)on 73-96-2243Iih Immature Gran<0.03<0.10 k/uLOhiohealth Shelby HospitalBasophils (Bld) [#/Vol]0.06 10*3/uL<0.11 k/uLOhiohealth Shelby HospitalBasophils/100 WBC (Bld)0.9 % [facility] HospitalDifferential cell count method Nom (Bld)AutoCleveland St. [facility] Hospital Eosinophils (Bld) [#/Vol]0.31 10*3/uL<0.46 k/uLOhiohealth Shelby HospitalEosinophils/100 WBC (Bld)4.5 %[facility] Shelby HospitalErythrocyte distribution width (RBC) [Ratio]12.4 % 11.5 - 15.0 %[facility] Shelby HospitalHematocrit (Bld) [Volume fraction]41.8 %36.0 - 46.0 %[facility] Shelby HospitalHemoglobin (Bld) [Mass/Vol]13.8 g/dL11.5 - 15.5 g/dLOhiohealth Shelby HospitalImmature Gran %0.3 %[facility] Shelby HospitalLymphocytes (Bld) [#/Vol]2.00 10*3/uL 1.00 - 4.00 k/uLOhiohealth Shelby HospitalLymphocytes/100 WBC (Bld)29.2 %[facility] MCH (RBC) [Entitic mass]32.5 pg26.0 - 34.[address] Cloud HospitalMCHC (RBC) [Mass/Vol]33.0 g/dL30.5 - 36.0 g/dLOhiohealth Shelby HospitalMCV (RBC) [Entitic vol]98.4 fL80.0 - 100.0 fLCleveland ClinicMonocytes (Bld) [#/Vol]0.94 10*3/uLHigh<0.87 k/uLMaxwelton ClinicMonocytes/100 WBC (Bld)13.7 %[facility]welton ClinicNeutrophils (Bld) [#/Vol]3.52 10*3/uL1.45 - 7.50 k/uLMaxwelton ClinicNeutrophils/100 WBC (Bld)51.4 %[facility] ClinicNucleated RBC (Bld) [#/Vol]10*3/uL<0.01 k/uLOhiohealth Shelby HospitalNucleated RBC/100 WBC (Bld) [Ratio]0.0 /100 WBCMaxwelton ClinicPlatelet mean volume (Bld) [Entitic vol]10.5 fL9.0 - 12.7 fLCleveland ClinicPlatelets (Bld) [#/Vol]254 10*3/uL150 - 400 k/uLOhiohealth Shelby HospitalRBC (Bld) [#/Vol]4.25 10*6/uL3.90 - 5.20 m/uLMaxwelton ClinicWBC (Bld) [#/Vol]6.85 10*3/uL3.70 - 11.00 k/uLOhiohealth Shelby HospitalComprehensive metabolic 2000 panelon 68-12-1483Zrhiyzc [Mass/Vol]4.3 g/dL3.9 - 4.9 g/dLMaxwelton ClinicALP [Catalytic activity/Vol]112 U/L34 - 123 U/LCleveland ClinicALT [Catalytic activity/Vol]30 U/L7 - 38 U/L [facility] ClinicAnion gap [Moles/Vol]10 mmol/L9 - 18 mmol/LCleveland ClinicAST [Catalytic activity/Vol]32 U/L13 - 35 U/LCleveland ClinicBilirubin [Mass/Vol]0.6 mg/dL0.2 - 1.3 mg/dLMaxwelton ClinicCalcium [Mass/Vol]11.0 mg/dLHigh8.5 - 10.2 mg/dLMaxwelton ClinicChloride [Moles/Vol]105 mmol/L97 - 105 mmol/LCleveland ClinicCO2 [Moles/Vol]23 mmol/L22 - 30 mmol/LCleveland ClinicCreatinine [Mass/Vol]1.01 mg/dLHigh0.58 - 0.96 mg/dLOhiohealth Shelby HospitalEstimated Glomerular Filtration Rate62 mL/min/1.73m>=60 mL/min/1.73mCleveland ClinicGlucose [Mass/Vol]86 mg/dL74 - 99 mg/dLOhiohealth Shelby HospitalPotassium [Moles/Vol]5.0 mmol/L 3.7 - 5.1 mmol/LCleveland ClinicProtein [Mass/Vol]6.4 g/dL6.3 - 8.0 g/dL [facility] Memorial Hospitalodium [Moles/Vol]138 mmol/L136 - 144 mmol/LCleveland ClinicUrea nitrogen [Mass/Vol]25 mg/dLHigh7 - 21 mg/dLJoint Township District Memorial Hospital Westergren method (Bld) [Velocity]on 92-06-3302RGS (Bld) [Velocity]10 mm/h0 - 20 mm/hr [facility] Hospitaloratory - Chemistry and Chemistry - challengeon 90-23-9497WYR [Mass/Vol]0.4 mg/dL<0.9 mg/dLGalion Community Hospitaloratory - Hematology and Cell countson 69-32-0610Awiojlazxw C3 [Mass/Vol]167 mg/oTGpzb73 - 166 mg/dLOhiohealth Shelby HospitalComplement C4 [Mass/Vol]38 mg/dL13 - 46 mg/dLMarion Hospital AUTO DIFF on 26-72-3569UAOE #0.1 103/ulNormal0.0-0.1The [facility] Surgical HospitalComment on above: Performed By: #### LIPA, MG, CMP #### [facility] [address] [address] [address] Dank Walkerphils/100 WBC (Bld)0.4 %Normal0.2-2.0The [facility] Comment on above:Performed By: #### LIPA, MG, CMP #### [facility] [address] [address] [address] Dank Ferro #0.2 103/ulNormal0.0-0.7The [facility] HospitalComment on above: Performed By: #### LIPA, MG, CMP #### [facility] [address] [place] [address] Dr. Dank Meadosinophils/100 WBC (Bld)2.0 %Normal0.9-7.0The [facility] Comment on above:Performed By: #### LIPA, MG, CMP #### [facility] [address] [place] [address] Dr. Dank Meadrythrocyte distribution width (RBC) [Ratio]12.1 %Eseowb01.0-15.0 The [facility] HospitalComment on above:Performed By: #### LIPA, MG, CMP #### [facility] [address] [place] [address] Dr. Dank LovelaceHematocrit (Bld) [Volume fraction]48.6 %Critically high36.0-48.0 The [facility] HospitalComment on above:Performed By: #### LIPA, MG, CMP #### [facility] [address] [place] [address] Dr. Dank LovelaceHemoglobin (Bld) [Mass/Vol]16.2 g/dLCritically high12.0-16.0The [facility] HospitalComment on above:Performed By: #### LIPA, MG, CMP #### [facility] [address] [place] [address] Dr. Dank Gallegos #0.06 10e3/ulCritically high0.00-0.03The [facility] Comment on above:Performed By: #### LIPA, MG, CMP #### [facility] [address] [place] [address] Dr. Dank Gallegos %0.5 %Normal0.0-0.5The [facility] HospitalComment on above: Performed By: #### LIPA, MG, CMP #### [facility] [address] [place] [address] Dr. Dank Mitchell #1.9 103/ulNormal1.2-3.8The [facility] HospitalComment on above:Performed By: #### LIPA, MG, CMP #### [facility] [address] [place] [address] Dr. Yilan ChangLymphocytes/100 WBC (Bld)16.0 %Critically low20.5-60.0The [facility] HospitalComment on above:Performed By: #### LIPA, MG, CMP #### [facility] [address] [place] [address] Dr. Dank Ruiz DIFF REQNONormalThe [facility] HospitalComment on above: Performed By: #### LIPA, MG, CMP #### [facility] [address] [place] [address] Dr. Dank Crow (RBC) [Entitic mass]32.3 uxArmhsb40.7-34.0The [facility] HospitalComment on above:Performed By: #### LIPA, MG, CMP #### [facility] [address] [place] [address] Dr. Dank Crow (RBC) [Mass/Vol]33.3 g/lMCukjqx31.9-35.2The [facility] HospitalComment on above:Performed By: #### LIPA, MG, CMP #### [facility] [address] [place] [address] Dr. Dank Crow (RBC) [Entitic vol]97.0 oDLwthdd88.0-99.0The [facility] HospitalComment on above:Performed By: #### LIPA, MG, CMP #### [facility] [address] [place] [address] Dr. Dank Tavarez #1.3 103/ulCritically high0.3-0.8The [facility] Comment on above:Performed By: #### LIPA, MG, CMP #### [facility] [address] [place] [address] Dr. Dank Guamanocytes/100 WBC (Bld)11.2 %Normal1.7-12.0[facility] Comment on above:Performed By: #### LIPA, MG, CMP #### [facility] [address] [place] [address] Dr. Dank Pinon #8.2 103/ulCritically high1.4-6.5The [facility] Comment on above:Performed By: #### LIPA, MG, CMP #### [facility] [address] [place] [address] Dr. Dank Andersenophils/100 WBC (Bld)69.9 %Hxiixi18.0-75.0The [facility] HospitalComment on above:Performed By: #### LIPA, MG, CMP #### [facility] [address] [place] [address] Dr. Dank Arias mean volume (Bld) [Entitic vol]10.0 fLNormal9.5-13.5The [facility] HospitalComment on above:Performed By: #### LIPA, MG, CMP #### [facility] [address] [place] [address] Dr. Dank LovelacePLT317 103/gfUawtmd389-761Kco [facility] HospitalComment on above: Performed By: #### LIPA, MG, CMP #### [facility] [address] [place] [address] Dr. Dank BeltránC5.01 106/ulNormal4.20-5.40The [facility] HospitalComment on above:Performed By: #### LIPA, MG, CMP #### [facility] [address] [place] [address] Dr. Dank LovelaceWBC11.7 103/ulCritically high4.0-11.0The [facility] HospitalComment on above:Performed By: #### LIPA, MG, CMP #### [facility] [address] [place] [address] Dr. Dank Renner URINE PROFILEon 96-05-7917Vsrlpcsyo Ql (U)NegativeNormal NEGATIVEThe [facility] HospitalComment on above:Performed By: #### ERUR #### [facility] [address] [place] [address] Dr. Dank Bernstein (U)CLEARNormalCLEARThe [facility] HospitalComment on above: Performed By: #### ERUR #### [facility] [address] [place] [address] Dr. Yilan ChangColor (U)LT. YELLOWNormalYELLOWBellevue HospitalComment on above:Performed By: #### ERUR #### [facility] [address] [place] [address] Dr. Dank Bravo micrscopic examination will be performed if indicated. NormalBellevue HospitalComment on above:Performed By: #### ERUR #### [facility] [address] [place] [address] Dr. Dank LovelaceGlucose Ql (U)NegativeNormalNEGATIVEBellevue HospitalComment on above:Performed By: #### ERUR #### [facility] [address] [place] [address] Dr. Dank LovelaceHemoglobin Ql (U)NegativeNormalNEGATIVEKeenan Private Hospital on above:Performed By: #### ERUR #### [facility] [address] [place] [address] Dr. Dank LovelaceKetones Ql (U)NegativeNormalNEGATIVEBellevue HospitalComment on above:Performed By: #### ERUR #### [facility] [address] [place] [address] Dr. Dank LovelaceLEUKOCYTESNegativeNormalNEGATIVEBellevue HospitalCommclaren bay region on above:Performed By: #### ERUR #### [facility] [address] [place] [address] Dr. Dank LovelaceNitrite Ql (U)NegativeNormalNEGATIVEBellevue HospitalComment on above:Performed By: #### ERUR #### [facility] [address] [place] [address] Dr. Dank LovelacepH (U)5.5 [pH]Normal5-9[facility] HospitalComment on above: Performed By: #### ERUR #### [facility] [address] [place] [address] Dr. Dank LovelaceSPEC GRAVITY1.289Wfcvqv5.005-<=1.025B[facility] HospitalComment on above:Performed By: #### ERUR #### [facility] [address] [place] [address] Dr. Dank Mroa PROTEINNegativeNormalNEGATIVE/ TRACEThe [facility] Comment on above:Performed By: #### ERUR #### [facility] [address] [place] [address] Dr. Dank Bautista MICRO INDNOT INDICATEDNormalThe [facility] HospitalComment on above:Performed By: #### ERUR #### [facility] [address] [place] [address] Dr. Dank LovelaceUrobilinogen Qn (U)0.2 {Simon'U}/dLNormal0.2 - 1.0The [facility] HospitalComment on above:Performed By: #### ERUR #### [facility] [address] [place] [address] Dr. Dank LovelaceLIPASEon 89-72-3381Fngqnk [Catalytic activity/Vol]39.0 U/L Critically low73.0-393.0The [facility] HospitalComment on above:Performed By: #### LIPA, MG, CMP #### [facility] [address] [place] [address] Dr. Dank LovelaceMAGNESIUMon 53-02-0353Bmruanfjm [Mass/Vol]1.4 mg/dLCritically low 1.8-2.4The [facility] HospitalComment on above:Performed By: #### LIPA, MG, CMP #### [facility] [address] [place] [address] Dr. Dank LovelacePROF 14(COMP METB)on 46-22-6347Wpjwmjn [Mass/Vol]3.8 g/dLNormal 3.4-5.0The [facility] HospitalComment on above:Performed By: #### LIPA, MG, CMP #### [facility] [address] [place] [address] Dr. Dank LovelaceAlbumin/Globulin [Mass ratio]0.9 {ratio}NormalThe [facility] HospitalComment on above:Performed By: #### LIPA, MG, CMP #### [facility] [address] [place] [address] Dr. Yilan ChangALP [Catalytic activity/Vol]150 U/LCritically jxbu44-787Oxl [facility] HospitalComment on above:Performed By: #### LIPA, MG, CMP #### [facility] [address] [place] [address] Dr. Dank HallT [Catalytic activity/Vol]31 U/PWoartq70-84Lop [facility] HospitalComment on above:Performed By: #### LIPA, MG, CMP #### [facility] [address] [place] [address] Dr. Dank Isabelon gap [Moles/Vol]16.4 mmol/LNormalThe [facility] Comment on above:Performed By: #### LIPA, MG, CMP #### [facility] [address] [place] [address] Dr. Dank LovelaceAST [Catalytic activity/Vol]18 U/HUzacvp94-32Qdr [facility] HospitalComment on above:Performed By: #### LIPA, MG, CMP #### [facility] [address] [place] [address] Dr. Dank LovelaceBilirubin [Mass/Vol]0.4 mg/dLNormal0.2-1.0The [facility] Comment on above:Performed By: #### LIPA, MG, CMP #### [facility] [address] [place] [address] Dr. Dank LovelaceCalcium [Mass/Vol]11.7 mg/dLCritically high8.5-10.1The [facility] HospitalComment on above:Performed By: #### LIPA, MG, CMP #### [facility] [address] [place] [address] Dr. Dank LovelaceChloride [Moles/Vol]103 mmol/JQxiwax44-427Yoo [facility] Comment on above:Performed By: #### LIPA, MG, CMP #### [facility] [address] [place] [address] Dr. Dank LovelaceCO2 [Moles/Vol]20.4 mmol/LCritically low21.0-32.0The [facility] HospitalComment on above:Performed By: #### LIPA, MG, CMP #### [facility] [address] [place] [address] Dr. Dank LovelaceCreatinine [Mass/Vol]1.14 mg/dLCritically high0.55-1.02The [facility] HospitalComment on above:Performed By: #### LIPA, MG, CMP #### [facility] [address] [place] [address] Dr. Dank MeadGFR-AF EQSNSZDV39 mL/min/1.25t8Ybgrukzzdl low>=60The [facility] HospitalComment on above:Performed By: #### LIPA, MG, CMP #### [facility] [address] [place] [address] Dr. Dank MeadGFR-NON AF YDAOXIJX14 mL/min/1.66m1Dbpmxabcbp low>=60The [facility] HospitalComment on above:Performed By: #### LIPA, MG, CMP #### [facility] [address] [place] [address] Dr. Dank LovelaceGlobulin (S) [Mass/Vol]4.4 g/dLNormalThe [facility] HospitalComment on above:Performed By: #### LIPA, MG, CMP #### [facility] [address] [place] [address] Dr. Dank LovelaceGlucose [Mass/Vol]124 mg/dLCritically vjqs20-335Hxf [facility] Hospitalment on above:Performed By: #### LIPA, MG, CMP #### [facility] [address] [place] [address] Dr. Dank LovelacePotassium [Moles/Vol]4.8 mmol/LNormal3.5-5.1The [facility] Comment on above:Performed By: #### LIPA, MG, CMP #### [facility] [address] [place] [address] Dr. Dank LovelaceProtein [Mass/Vol]8.2 g/dLNormal6.4-8.2The [facility] Comment on above:Performed By: #### LIPA, MG, CMP #### [facility] [address] [place] [address] Dr. Dank LovelaceSodium [Moles/Vol]135 mmol/LCritically lnt693-182IboBellevue HospitalComment on above:Performed By: #### LIPA, MG, CMP #### [facility] [address] [address] [address] Dank Richey nitrogen [Mass/Vol]28.0 mg/dLCritically high7.0-18.0The [facility] HospitalComment on above:Performed By: #### LIPA, MG, CMP #### [facility] [address] [address] [address] Dank LovelaceUrea nitrogen/Creatinine [Mass ratio]24.6 mg/mgNormalThMercy Health Defiance HospitalComment on above:Performed By: #### LIPA, MG, CMP #### [facility] [address] [address] [address] Dank LovelaceActivated partial thromboplastin time (aPTT) in platelet poor plasma by coagulation aOrdered By: Hussain Cat on 70-71-0629iDHN Coag (PPP) [Time]34.7 s25.1-36.5FPike Community HospitalAlbumin [Mass/volume] in Serum or PlasmaOrdered By: Hussain Cat on 02-08-2022 Albumin [Mass/Vol]3.5 g/dL3.2-5.5FPike Community HospitalBasophils Auto (Bld) [#/Vol]Ordered By: Hussain Cat on 32-19-5153Ovlblbubz (Bld) [#/Vol]0.0 10*3/uL0.0-0.2FPike Community HospitalBasophils/100 WBC Auto (Bld)Ordered By: Hussain Cat on 45-21-2938Jvcohpgvh/100 WBC (Bld)0.0 % [facility] CenterBlood hemoglobin measurement (mass/volume) Ordered By: Hussain Cat on 37-20-6847Tnkhmxlpks (Bld) [Mass/Vol]13.3 g/dL11.8-15.4FPike Community HospitalBlood leukocytes automated count (number/volume)Ordered By: Hussain Cat on 49-95-5617KPA (Bld) [#/Vol] 11.8 10*3/uL4.5-11.0[facility] CenterCreatinine and Glomerular filtration rate.predicted panel (S/P/Bld)Ordered By: Hussain Cat on 43-48-1698Vswmgbgeer [Mass/Vol]0.90 mg/dL0.44-1.03[facility] CenterEosinophils Auto (Bld) [#/Vol]Ordered By: Hussain Cat on 84-19-0020Gzvbxovdjqh (Bld) [#/Vol]0.0 10*3/uL0.0-0.45[facility] CenterEosinophils/100 WBC Auto (Bld)Ordered By: Hussainstephen Cat on 51-12-0803Cbtuchvxoxf/100 WBC (Bld)0.0 %[facility] Erythrocyte distribution width Auto (RBC) [Ratio]Ordered By: Hussain Cat on 56-09-4546Hseihckvhxr distribution width (RBC) [Ratio]13.0 %11.9-15.3 [facility] CenterErythrocyte sedimentation rate by Photometric methodOrdered By: Rachelle Frazier on 16-87-7364TAI Photometric method (Bld) [Velocity]40 mm/hr0-29[facility] CenterEstimated glomerular filtration rate (GFR) non- AmericanOrdered By: Hussain Cat on 48-86-7032ICN/1.73 sq M.predicted among non-blacks MDRD (S/P/Bld) [Vol rate/Area]> 60 mL/MinTrumbull Regional Medical CenterFolate [Mass/volume] in Serum or PlasmaOrdered By: Hussain Cat on 74-95-6898Lpnsbh [Mass/Vol] ng/mL>5.9[facility] Medical CenterComment on above:Folate reference range: >5.9 ng/ml The WHO technical consultation on folate and vitamin b12 deficiencies has determined that folate concentrations less than 4 ng/ml are considered deficient.Globulin Calc (S) [Mass/Vol]Ordered By: Hussain Cat on 43-83-3498Ememejsb (S) [Mass/Vol]2.7 g/dLTrumbull Regional Medical CenterHematocrit Auto (Bld) [Volume fraction]Ordered By: Hussain Cat on 70-73-9544Teoawyidkl (Bld) [Volume fraction]39.0 % 34.0-46.4FPike Community HospitalLaboratory - Chemistry and Chemistry - challengeOrdered By: Hussain Cat on 44-61-4049Penxjekla (Vitamin B12) [Mass/Vol]486 pg/tI723-936JtzunqgvmTrumbull Regional Medical CenterMagnesium [Mass/Vol] 1.4 mg/dL1.6-2.6FPike [facility] HospitalLabor[facility] - CoagulationOrdered By: Hussain Cat on 66-76-8139PI Coag (PPP) [Time]16.0 s9.0-12.9 [facility] CenterLaboratory - Hematology and Cell countsOrdered By: Hussain Cat on 27-20-0142Nyodztcxf RBC/100 WBC (Bld) [Ratio]0.0 % 0-0.5FPike Community HospitalLymphocytes Auto (Bld) [#/Vol]Ordered By: Hussain Cat on 77-30-3407Timlunlwoni (Bld) [#/Vol]0.7 10*3/uL1.00-4.8 [facility] CenterLymphocytes/100 WBC Auto (Bld)Ordered By: Hussain Cat on 30-68-1539Tfuiuncatzj/100 WBC (Bld)6.1 %[facility] Auto (RBC) [Entitic mass]Ordered By: Hussain Cat on 55-59-5540GDP (RBC) [Entitic mass]32.7 pg24.7-34.3FPike Community HospitalMCHC Auto (RBC) [Mass/Vol]Ordered By: Hussain Cat on 54-59-4921CGIB (RBC) [Mass/Vol]34.0 g/dL32.0-35.0[facility] CenterMCV Auto (RBC) [Entitic vol]Ordered By: Hussain Cat on 02-08-2022 MCV (RBC) [Entitic vol]96.2 zT88-949ZtzvvlbdfTrumbull Regional Medical CenterMonocytes Auto (Bld) [#/Vol]Ordered By: Hussain Cat on 69-39-2338Oxmncgpoi (Bld) [#/Vol]0.3 10*3/uL0.0-0.8[facility] CenterMonocytes/100 WBC Auto (Bld)Ordered By: Hussain Cat on 29-29-8689Wqfwbfvzm/100 WBC (Bld)2.5 % [facility] CenterNeutrophils Auto (Bld) [#/Vol]Ordered By: Hussain Cat on 37-87-9131Havahbepxsq (Bld) [#/Vol]10.8 10*3/uL1.8-7.7 [facility] CenterNeutrophils/100 WBC Auto (Bld)Ordered By: Hussain Cat on 75-03-0873Rbvkugyjhzt/100 WBC (Bld)91.4 %[facility] CenterNo Panel InformationOrdered By: Hussain Cat on 14-90-221849126835-Btlbqsb Vitamin D Total66.1 ng/jH47-491HmjxxprzjTrumbull Regional Medical CenterComment on above:VITAMIN D STATUS 25(OH)VITAMIN D RANGE (ng/mL) Deficient <20 Insufficient 20 to <30 Sufficient 30 to 100 Reference: Geraldine MF,Nkechi NC, Raegan CLIFFORD, et al. Evaluation,treatment, and prevention of vitamin D deficiency; an Endocrine Society clinical practice guideline. JCEM. 2010; 96(7):1911-30.Estimated GFR ()> 60 mL/MinTrumbull Regional Medical CenterComment on above: GFR estimated reference range: According to KDOQI guidelines, <60 ml/min/1.73m2 is sufficient todiagnose a patient with chronic kidney disease.Pharmacy Creatinine Clearance (Chem80.69[facility] CenterPlatelet mean volume Auto (Bld) [Entitic vol]Ordered By: Hussain Cat on 02-08-2022 Platelet mean volume (Bld) [Entitic vol]8.6 fL6.3-10.7FPike Community HospitalPlatelet poor plasma international normalized ratio (INR) by coagulation assay (relatOrdered By: Hussain Cat on 44-89-1572ZMX Coag (PPP) [Relative time]1.4 {INR}[facility] CenterComment on above:INR Therapeutic Range A) [...] Auto (Bld) [#/Vol]Ordered By: Hussain Cat on 62-44-4127Ketiqfufl (Bld) [#/Vol]276 10*3/wZ429-392FxsonowjkTrumbull Regional Medical CenterProtein [Mass/volume] in Serum or PlasmaOrdered By: Hussain Cat on 82-42-1496Eqvincb [Mass/Vol]6.2 g/dL 6.1-7.9[facility] CenterRBC Auto (Bld) [#/Vol]Ordered By: Hussain Cat on 34-13-2783DVN (Bld) [#/Vol]4.06 10*6/uL3.60-5.00Marion Hospitalerum or plasma C reactive protein measurement (mass/volume)Ordered By: Rachelle Frazier on 52-17-5168QGK [Mass/Vol]3.9 mg/dL 0.0-1.0Marion Hospitalerum or plasma alanine aminotransferase measurement without P-5'-P (enzymatic activiOrdered By: Hussain Cat on 37-66-4171CPT No additional P-5'-P [Catalytic activity/Vol]24 U/G98-25NmkgkcpehMarion Hospitalerum or plasma albumin/globulin mass ratioOrdered By: Hussain Cat on 05-67-3420Glbpyue/Globulin [Mass ratio]1.3 {ratio} Marion Hospitalerum or plasma alkaline phosphatase measurement (enzymatic activity/volume)Ordered By: Hussain Cat on 59-34-7539NZT [Catalytic activity/Vol]87 U/I03-09OtppxxuaqMarion Hospitalerum or plasma aspartate aminotransferase measurement (enzymatic activity/volume)Ordered By: Hussainstephen Rickettsca on 90-99-2933SKP [Catalytic activity/Vol]22 U/R32-67KqtridztgMarion Hospitalerum or plasma calcium measurement (mass/volume)Ordered By: Hussain Rickettsca on 00-78-5188Gwwebsa [Mass/Vol]10.2 mg/dL8.2-10.2FGenesis Hospitalerum or plasma chloride measurement (moles/volume)Ordered By: Hussainstephen Coreas[facility] on 02-08-2022 Chloride [Moles/Vol]103 mmol/B19-989TmrgnyjsiMarion Hospitalerum or plasma glucose measurement (mass/volume)Ordered By: Hussain Doameascension columbia saint [facility] on 01-20-4285Mswreqz [Mass/Vol]119 mg/mA27-120RksvaxlaqTrumbull Regional Medical Center Comment on above:ADA recommended reference range Random Glucose Reference Range is dependent on time and content of last meal. Glucose of more than 200 mg/dL in a nonstressed, ambulatory subject supports the diagnosis of Diabetes Mellitus.Serum or plasma potassium measurement (moles/volume)Ordered By: Hussain Rickettsca on 60-89-0385Nxabpnyvy [Moles/Vol] 4.6 mmol/L3.5-5.1FGenesis Hospitalerum or plasma sodium measurement (moles/volume)Ordered By: Hussain Cat on 60-50-7653Mqgyzv [Moles/Vol]139 mmol/F090-086KzvqgcccmMarion Hospitalerum or plasma total bilirubin measurement (mass/volume)Ordered By: Hussainholly Rickettsca on 19-32-6256Ampepjnbe [Mass/Vol]0.8 mg/dL0.3-1.2FPike [facility] Hospital Serum or plasma total carbon dioxide measurement (moles/volume)Ordered By: Hussain Rickettsca on 09-08-8024BI7 [Moles/Vol]22.3 mmol/L22.0-30.0Marion Hospitalerum or plasma urea nitrogen measurement (mass/volume) Ordered By: Hussain Cat on 54-55-8444Gvxa nitrogen [Mass/Vol]24 mg/dL 9-[facility] DL <= 0.005 mIU/L QnOrdered By: Hussain Cat on 01-22-0871MXB Qn1.31 m[IU]/L0.45-5.33[facility] CenterActivated partial thromboplastin time (aPTT) in platelet poor plasma by coagulation aOrdered By: Chapincito Barraza on 51-72-2050zTKC Coag (PPP) [Time]35.5 s25.1-36.5FPike Community HospitalAutomated erythrocytes count in urine sediment (number/area)Ordered By: Chapincito Barraza on 41-48-7028KTM Auto (Urine sed) [#/Area]0-1 [HPF][facility] CenterAutomated leukocytes count in urine sediment (number/area)Ordered By: Chapincito Barraza on 34-55-6566IIZ Auto (Urine sed) [#/Area]3-4 [HPF][facility] CenterBasophils Auto (Bld) [#/Vol]Ordered By: Chapincito Barraza on 71-26-2916Dkjeriina (Bld) [#/Vol]0.1 10*3/uL0.0-0.2FPike Community HospitalBasophils/100 WBC Auto (Bld)Ordered By: Chapincito Barraza on 06-39-5794Tsdmowdyg/100 WBC (Bld)0.5 % [facility] CenterBilirubin Test strip Ql (U)Ordered By: Chapincito Barraza on 49-51-8682Ukoykrcgs Ql (U)NegativeNegativeTrumbull Regional Medical CenterBlood hemoglobin measurement (mass/volume)Ordered By: Chapincito Barraza on 93-74-3265Pcnrtsivbh (Bld) [Mass/Vol]13.6 g/dL11.8-15.4FPike Community HospitalBlood leukocytes automated count (number/volume)Ordered By: Chapincito Barraza on 21-08-7552HKJ (Bld) [#/Vol]11.3 10*3/uL4.5-11.0[facility] CenterCOVID-19 Positive/NegativeOrdered By: Chapincito Barraza on 02-07-2022 SARS-CoV-2 (COVID-19) N gene RAVIN+probe Ql (Resp)NegativeNegativeTrumbull Regional Medical CenterComment on above:Testing for SARS-CoV-2 by RT-PCR This test was developed and its performance characteristics determined by [employer] ([place]) and validated at the [facility]. This test has not been [...] revoked sooner.COVID-19 SOFIAOrdered By: Chapincito Barraza on 62-84-1521YAWU-CoV+SARS-CoV-2 (COVID-19) Ag IA.rapid Ql (Resp)NegativeNegative [facility] CenterComment on above:This is a duplicate Samia SARS Antigen (JESUS) result to be used for statistical tracking purpose only.Color Auto (U)Ordered By: Chapincito Barraza on 48-22-9101Kkbun (U)Dark yellowYellowTrumbull Regional Medical CenterCreatine kinase [Enzymatic activity/volume] in Serum or PlasmaOrdered By: Chapincito Barraza on 68-62-9710CS [Catalytic activity/Vol]154 U/L [facility] CenterCreatinine (Bld) [Mass/Vol]Ordered By: Hussain Cat on 05-85-0015Ypcudbwixp [Mass/Vol]1.0 mg/dL0.6-1.3FPike Community HospitalComment on above:ER/ESD physician is notified/shown all ISTAT results. Critical values may be confirmed by laboratory testing if deemed necessary by ER attending doctor.Creatinine and Glomerular filtration rate.predicted panel (S/P/Bld)Ordered By: Chapincito Barraza on 05-04-9865Ixykstopnq [Mass/Vol]1.03 mg/dL0.44-1.03[facility] CenterEosinophils Auto (Bld) [#/Vol]Ordered By: Chapincito Barraza on 41-49-6454Ghjtrrgvppp (Bld) [#/Vol]0.2 10*3/uL0.0-0.45[facility] CenterEosinophils/100 WBC Auto (Bld) Ordered By: Chapincito Barraza on 18-04-3962Kjwugwrwfok/100 WBC (Bld)1.8 %[facility] CenterErythrocyte distribution width Auto (RBC) [Ratio]Ordered By: Chapincito Barraza on 27-96-1103Lppzvjwojwd distribution width (RBC) [Ratio]13.0 % 11.9-15.3FPike Community HospitalEstimated glomerular filtration rate (GFR) non- AmericanOrdered By: Chapincito Barraza on 29-89-1602HJN/1.73 sq M.predicted among non-blacks MDRD (S/P/Bld) [Vol rate/Area]54 mL/MinTrumbull Regional Medical CenterHematocrit Auto (Bld) [Volume fraction]Ordered By: Chapincito Barraza on 00-07-3551Jbwjyttifu (Bld) [Volume fraction]40.9 %34.0-46.4FPike Community HospitalKetones Auto test strip (U) [Mass/Vol]Ordered By: Chapincito Barraza on 67-20-1294Elfmxya (U) [Mass/Vol]NegativeNegativeTrumbull Regional Medical CenterLaboratory - Chemistry and Chemistry - challengeOrdered By: Chapicnito Barraza on 60-24-1016Uvounauzvux peptide B (Bld) [Mass/Vol]77.0 pg/mL5-100 [facility] CenterLaboratory - CoagulationOrdered By: Chapincito Barraza on 52-64-8261TK Coag (PPP) [Time]16.3 s9.0-12.9[facility] Laboratory - Hematology and Cell countsOrdered By: Chapincito Barraza on 02-07-2022 Nucleated RBC/100 WBC (Bld) [Ratio]0.0 %0-0.5FP[facility] Laboratory - Microbiology and Antimicrobial susceptibilityOrdered By: Chapincito Barraza on 18-30-7373LAXW-CoV-2 (COVID-19) RNA RAVIN+probe Ql (Unsp spec)N/AFPike Community HospitalLaboratory - UrinalysisOrdered By: Chapincito Barraza on 97-37-9040Enlplxo casts LM Ql (Urine sed)0-8 [LPF][facility] CenterLymphocytes Auto (Bld) [#/Vol]Ordered By: Chapincito Barraza on 02-07-2022 Lymphocytes (Bld) [#/Vol]2.1 10*3/uL1.00-4.8[facility] Lymphocytes/100 WBC Auto (Bld)Ordered By: Chapincito Barraza on 02-07-2022 Lymphocytes/100 WBC (Bld)18.9 %[facility] Auto (RBC) [Entitic mass]Ordered By: Chapincito Barraza on 18-57-1986YEL (RBC) [Entitic mass]32.4 pg24.7-34.3FPike Community HospitalMCHC Auto (RBC) [Mass/Vol]Ordered By: Chapincito Barraza on 67-42-8750OJCI (RBC) [Mass/Vol]33.4 g/dL32.0-35.0[facility] CenterMCV Auto (RBC) [Entitic vol]Ordered By: Chapincito Barraza on 69-29-7916LVZ (RBC) [Entitic vol]97.0 aM20-280MbdixdxmmTrumbull Regional Medical Center Monocytes Auto (Bld) [#/Vol]Ordered By: Chapincito Barraza on 34-59-1519Pfamrcdfp (Bld) [#/Vol]1.4 10*3/uL0.0-0.8[facility] CenterMonocytes/100 WBC Auto (Bld)Ordered By: Chapincito Barraza on 88-01-6903Wxvxlfpsp/100 WBC (Bld)12.2 %[facility] CenterNeutrophils Auto (Bld) [#/Vol]Ordered By: Chapincito Barraza on 60-85-0276Iatskhjkqxx (Bld) [#/Vol]7.5 10*3/uL1.8-7.7FPike Community HospitalNeutrophils/100 WBC Auto (Bld)Ordered By: Chapincito Barraza on 02-07-2022 Neutrophils/100 WBC (Bld)66.6 %[facility] CenterNitrite Test strip Ql (U)Ordered By: Chapincito Barraza on 47-27-3127Bijiaed Ql (U)PositiveNegative [facility] CenterNo Panel InformationOrdered By: Chapincito Barraza on 00-41-0286YJLS Antigen (LFIA)[facility] CenterEstimated GFR ()> 60 mL/MinTrumbull Regional Medical CenterComment on above: GFR estimated reference range: According to KDOQI guidelines, <60 ml/min/1.73m2 is sufficient todiagnose a patient with chronic kidney disease.Pharmacy Creatinine Clearance (Chem70.36[facility] CenterNo Panel InformationOrdered By: Hussain Cat on 24-07-6381GCF Estimated GFR > 60[facility] Medical CenterComment on above:GFR estimated reference range: According to KDOQI guidelines, <60 ml/min/1.73m2 is sufficient todiagnose a patient with chronic kidney disease.POC Estimated GFR Non- Dlcg78CssfqmkpdTrumbull Regional Medical CenterPlatelet mean volume Auto (Bld) [Entitic vol]Ordered By: Chapincito Barraza on 09-97-0689Awnbturx mean volume (Bld) [Entitic vol]8.5 fL6.3-10.7FPike Community HospitalPlatelet poor plasma international normalized ratio (INR) by coagulation assay (relatOrdered By: Chapincito Barraza on 24-37-0664OMD Coag (PPP) [Relative time]1.4 {INR}[facility] CenterComment on above:INR Therapeutic Range A) [...] Auto (Bld) [#/Vol]Ordered By: Chapincito Barraza on 70-90-3631Bvhtyqszl (Bld) [#/Vol]273 10*3/uL 150-450[facility] CenterProtein Auto test strip (U) [Mass/Vol] Ordered By: Chapincito Barraza on 26-02-5526Eyffkfo (U) [Mass/Vol]NegativeNegative [facility] CenterRBC Auto (Bld) [#/Vol]Ordered By: Chapincito Barraza on 21-08-3855EHV (Bld) [#/Vol]4.21 10*6/uL3.60-5.00Marion Hospitalerum or plasma calcium measurement (mass/volume)Ordered By: Chapincito Barraza on 96-45-3341Camhtbo [Mass/Vol]10.8 mg/dL8.2-10.2FP[facility] Serum or plasma chloride measurement (moles/volume)Ordered By: Chapincito Barraza on 19-34-8143Rsdwujxj [Moles/Vol]105 mmol/P33-643YekkwfynoTrumbull Regional Medical Center Serum or plasma creatine kinase MB (CKMB)/total creatine kinase (CK) ratio by calculaOrdered By: Chapincito Barraza on 01-79-4652TQ.MB Calc [Catalytic fraction]1.4 % 0.00-2.50Mar[facility] Hospitalerum or plasma creatine kinase MB measurement (mass/volume)Ordered By: Chapincito Barraza on 02-45-4037ZP.MB [Mass/Vol]2.2 ng/mL0.6-6.3FGenesis Hospitalerum or plasma glucose measurement (mass/volume)Ordered By: Chapincito Barraza on 82-04-8449Wgiyiir [Mass/Vol] 83 mg/fP46-318TfemdsyogTrumbull Regional Medical CenterComment on above:ADA recommended reference range Random Glucose Reference Range is dependent on time and content of last meal. Glucose of more than 200 mg/dL in a nonstressed, ambulatory subject supports the diagnosis of Diabetes Mellitus.Serum or plasma potassium measurement (moles/volume)Ordered By: Chapincito Barraza on 22-38-0317Opwkjnfai [Moles/Vol]5.1 mmol/L3.5-5.1FGenesis Hospitalerum or plasma sodium measurement (moles/volume)Ordered By: Chapincito Barraza on 52-66-9334Gjlhrm [Moles/Vol]139 mmol/L 136-146Mar[facility] Hospitalerum or plasma total carbon dioxide measurement (moles/volume)Ordered By: Chapincito Barraza on 60-11-1066JF6 [Moles/Vol] 22.4 mmol/L22.0-30.0[facility] Hospitalerum or plasma urea nitrogen measurement (mass/volume)Ordered By: Chapincito Barraza on 84-30-5062Nhux nitrogen [Mass/Vol]22 mg/dL9-23Marion Hospitalpecific gravity Auto test strip (U) [Rel density]Ordered By: Chapincito Barraza on 64-23-1842Texbqftm gravity (U) [Rel density]1.0491.001-1.030[facility] Squamous epithelial cells detection in urine sediment by light microscopyOrdered By: Chapincito Barraza on 70-93-5843Xqfjiklvtv cells.squamous LM Ql (Urine sed)5-9 [HPF] [facility] CenterTroponin I.cardiac [Mass/volume] in Serum or Plasma by High sensitivity methodOrdered By: Chapincito Barraza on 24-14-6068Rgodnwvb I.cardiac High sensitivity method [Mass/Vol]16 pg/mL0-15[facility] CenterUrine bacteria detection by automated methodOrdered By: Chapincito Barraza on 58-96-8038Pgbxchur Auto Ql (U)2+None SeenTrumbull Regional Medical Center Urine clarity by refractometry automatedOrdered By: Chapincito Barraza on 02-07-2022 Clarity Refractometry automated (U)ClearCleUC [facility] Urine culture routineOrdered By: Chapincito Barraza on 48-89-8756Mxqsqrjq identified Cx Nom (U)Escherichia coliTrumbull Regional Medical CenterUrine glucose measurement by automated test strip (mass/volume)Ordered By: Chapincito Barraza on 78-08-4843Rznhnjz Auto test strip (U) [Mass/Vol]Normal mg/dLNormalTrumbull Regional Medical CenterUrine hemoglobin detection by automated test stripOrdered By: Chapincito Barraza on 88-39-0458Hwcgmilpao Auto test strip Ql (U)NegativeNegative [facility] CenterUrine leukocyte esterase detection by automated test stripOrdered By: Chapincito Barraza on 07-30-8604Vgjefcpuh esterase Auto test strip Ql (U)2+NegativeTrumbull Regional Medical CenterUrine sediment renal epithelial cell count by microscopy (number/high power field)Ordered By: Chapincito Barraza on 86-23-6317Ztdmrbegdu cells.renal LM.HPF (Urine sed) [#/Area]1-2 [HPF] [facility] CenterUrobilinogen Auto test strip (U) [Mass/Vol] Ordered By: Chapincito Barraza on 59-31-9402Gberhfxkqgbo (U) [Mass/Vol]Normal mg/dL NormalTrumbull Regional Medical CenterpH Auto test strip (U)Ordered By: Chapincito Barraza on 39-54-5043xC (U)5.0 [pH]5.0-9.0[facility] CenterCBC W Auto Differential panel (Bld)on 44-99-7546Iro Immature Gran0.03 k/uL<0.10 k/uL [facility] HospitalBasophils (Bld) [#/Vol]0.04 10*3/uL<0.11 k/uLOhiohealth Shelby Hospital Basophils/100 WBC (Bld)0.5 %[facility] HospitalDifferential cell count method Nom (Bld)AutoCleveland ClinicEosinophils (Bld) [#/Vol]0.19 10*3/uL<0.46 k/uL [facility] HospitalEosinophils/100 WBC (Bld)2.5 %[facility] HospitalErythrocyte distribution width (RBC) [Ratio]13.7 %11.5 - 15.0 %[facility] HospitalHematocrit (Bld) [Volume fraction]42.6 %36.0 - 46.0 %[facility] HospitalHemoglobin (Bld) [Mass/Vol]13.8 g/dL11.5 - 15.5 g/dLOhiohealth Shelby HospitalImmature Gran %0.4 %[facility] HospitalLymphocytes (Bld) [#/Vol]1.69 10*3/uL1.00 - 4.00 k/uLOhiohealth Shelby Hospital Lymphocytes/100 WBC (Bld)22.4 %[facility] SystemH (RBC) [Entitic mass]32.1 pg 26.0 - 34.[address] Cloud HospitalMCHC (RBC) [Mass/Vol]32.4 g/dL30.5 - 36.0 g/dL [facility] Health SystemV (RBC) [Entitic vol]99.1 fL80.0 - 100.0 fLCCleveland Clinic [facility] Monocytes (Bld) [#/Vol]0.92 10*3/uLHigh<0.87 k/uLMaxwelton ClinicMonocytes/100 WBC (Bld)12.2 %[facility] HospitalNeutrophils (Bld) [#/Vol]4.66 10*3/uL1.45 - 7.50 k/uLOhiohealth Shelby HospitalNeutrophils/100 WBC (Bld)62.0 %[facility] HospitalNucleated RBC (Bld) [#/Vol]10*3/uL<0.01 k/uLOhiohealth Shelby HospitalNucleated RBC/100 WBC (Bld) [Ratio]0.0 /100 WBCOhiohealth Shelby HospitalPlatelet mean volume (Bld) [Entitic vol]10.5 fL9.0 - 12.7 fLCleveland ClinicPlatelets (Bld) [#/Vol]231 10*3/uL150 - 400 k/uL [facility] HospitalRBC (Bld) [#/Vol]4.30 10*6/uL3.90 - 5.20 m/uLOhiohealth Shelby HospitalWBC (Bld) [#/Vol]7.53 10*3/uL3.70 - 11.00 k/uLOhiohealth Shelby HospitalComprehensive metabolic 2000 panelon 19-97-5245Lkxdcqx [Mass/Vol]4.0 g/dL3.9 - 4.9 g/dL [facility] HospitalP [Catalytic activity/Vol]120 U/L34 - 123 U/LCleveland [facility] Hospital ALT [Catalytic activity/Vol]27 U/L7 - 38 U/LCleveland ClinicAnion gap [Moles/Vol]11 mmol/L9 - 18 mmol/LCleveland ClinicAST [Catalytic activity/Vol]25 U/L13 - 35 U/LCleveland ClinicBilirubin [Mass/Vol]0.6 mg/dL0.2 - 1.3 mg/dL [facility] HospitalCalcium [Mass/Vol]10.3 mg/dLHigh8.5 - 10.2 mg/dLOhiohealth Shelby Hospital Chloride [Moles/Vol]109 mmol/LHigh97 - 105 mmol/LCleveland ClinicCO2 [Moles/Vol] 19 mmol/LLow22 - 30 mmol/LCleveland ClinicCreatinine [Mass/Vol]1.02 mg/dLHigh 0.58 - 0.96 mg/dLOhiohealth Shelby HospitalEstimated Glomerular Filtration Rate61 mL/min/1.73m>=60 mL/min/1.73mCleveland ClinicGlucose [Mass/Vol]85 mg/dL74 - 99 mg/dLOhiohealth Shelby HospitalPotassium [Moles/Vol]4.6 mmol/L3.7 - 5.1 mmol/LCleveland ClinicProtein [Mass/Vol]6.1 g/dLLow6.3 - 8.0 g/dLMaxwelton ClinicSodium [Moles/Vol]139 mmol/L136 - 144 mmol/LCleveland ClinicUrea nitrogen [Mass/Vol]26 mg/dLHigh7 - 21 mg/dLOhiohealth Shelby HospitalES Westergren method (Bld) [Velocity]on 29-15-7862WFY (Bld) [Velocity]5 mm/h0 - 20 mm/hrGalion Community Hospitaloratory - Chemistry and Chemistry - challengeon 67-15-9726IQX [Mass/Vol]0.6 mg/dL<0.9 mg/dLMercy Healthtory - Hematology and Cell countson 12-09-2021 Complement C3 [Mass/Vol]154 mg/dL86 - 166 mg/dLOhiohealth Shelby HospitalComplement C4 [Mass/Vol]35 mg/dL13 - 46 mg/dLOhiohealth Shelby HospitalCONVERTED SURGICAL PATHOLOGYon 05-99-8807OJEJOVQVE ADDENDAADDENDUM This addendum is issued to report the results of immunohistochemical stains. The original diagnoses remain unchanged. Immunohistochemistry for Helicobacter pylori performed on the gastric biopsy is negative (Block B1). Laboratory Developed Test (LDT) Disclaimer: Positive and negative controls stain appropriately. Performance characteristics of immunohistochemical, immunofluorescent and chromogenic in-situ hybridization tests have been determined by [facility]'s [facility] CenterA[facility] Path[facility] Medicine [place] ([facility]) in a manner consistent with CLIA requirements. One or more of these tests have not been cleared or approved by the FDA. [facility] is regulated under CLIA as qualified to perform high-complexity testing. These tests are used for clinical purposes. They should not be regarded as investigational or for research. [facility] HospitalCONVERTED CLINICAL HISTORYDIARRHEA, UNSPECIFIED TYPE [R19.7 (ICD-10-CM)]; EPIGASTRIC PAIN [R10.13 (ICD-10-CM)], LMP: NA A: R/O CELIAC B: R/O H PYLORI C-F: R/O MICROSCOPIC COLITIS, R/O UC [facility] HospitalCONVERTED COMPLETE REPORT ADDENDUM PRESENT Specimen originated from [facility] Specimen #: [id number] Submitting Physician: DIONE FRANCES MD, [facility] FINAL DIAGNOSIS 1. Duodenum, biopsy [...] in-situ hybridization tests have been determined by [facility]'s [facility] Pathology and Laboratory Medicine [place] ([facility]) in a manner consistent with CLIA requirements. One or more of these tests have not been cleared or approved by the FDA. [facility] is regulated under CLIA as qualified [...] in one cassette. Gross examination performed at [facility], [address] [place] [address] TTN 09/12/2021 9:01:08 PM Date of Report: 09/13/2021 Date of Procedure: 09/12/2021 Date of Receipt: 09/12/2021 Submitted by: DIONE FRANCES MD, MPH Location: LN10 Diagnostic interpretation performed at [facility], [address] [place] [address]. [place] Number: [id number] ClinicCONVERTED FINAL DIAGNOSIS1. Duodenum, biopsy (A) - Duodenal mucosa with no significant diagnostic alteration. 2. Stomach, biopsy (B) - Chronic antral and fundic gastritis. - Immunohistochemistry for Helicobacter pylori will be reported in an addendum. 3. Colon, right, transverse, left, and rectum, biopsy (C-F) - Colonic mucosa with no significant diagnostic alteration. [facility] HospitalCONVERTED GROSS DESCRIPTIONA. Received in formalin are [...] in one cassette. Gross examination performed at [facility], [address] [place] [address] TTN 09/12/2021 9:01:08 PM [facility] HospitalCONVERTED ORDERING PROVIDEROrdering Provider: DIONE FRANCES [facility] FoundationVERTED SPECIMENSDUODENUM, BIOPSY GASTRIC, BIOPSY RIGHT COLON, BIOPSY TRANSVERSE COLON, BIOPSY LEFT COLON, BIOPSY RECTAL, BIOPSY [facility] PATHOLOGYon [id number] ADDENDUM PRESENT Specimen originated from [facility] Specimen #: [id number] Submitting Physician: DIONE FRANCES MD, MPH FINAL [...] in-situ hybridization tests have been determined by [facility]'s Ishmael Silva [facility] Pathology and Laboratory Medicine [place] ([facility]) in a manner consistent with CLIA requirements. [...] in one cassette. Gross examination performed at [facility], [address] [place] [address] TTN 09/12/2021 9:01:08 PM Date of Report: 09/13/2021 Date of Procedure: 09/12/2021 Date of Receipt: 09/12/2021 Submitted by: DIONE FRANCES MD, MPH Location: LN10 Diagnostic interpretation performed at [place] [address]. CLIA Number: [id number] ClinicCOLONOSCOPY DIAGNOSTICon [id number] ClinicEGD DIAGNOSTICon 24-91-2170Arnssjgzu ClinicCBC (INCLUDES DIFF/PLT)on 12-10-4043Fjeafxowk (Bld) [#/Vol]0.042 10*3/uL Normal0-200Quest DiagnosticsComment on above:Performed By: #### 6399, 7600, 03749, 01431 #### [facility] of [address], [address] [place] [address] Fittings Tightener: Jose John MDBasophils/100 WBC (Bld)0.7 %NormalQuest DiagnosticsComment on above:Performed By: #### 6399, 7600, 70622, 11977 #### [facility] of [address], [address] [place] [address] Fittings Tightener: Jose John MDEosinophils (Bld) [#/Vol]0.222 10*3/uLNormal 15-500Quest DiagnosticsComment on above:Performed By: #### 6399, 7600, 74996, 65040 #### [facility] of [address], [address] [place] [address] Fittings Tightener: Jose BLACNHARDosinophils/100 WBC (Bld)3.7 %NormalQuest DiagnosticsComment on above:Performed By: #### 6399, 7600, 42068, 52224 #### [facility] of [address], [address] [place] [address] Fittings Tightener: Jose John MDErythrocyte distribution width (RBC) [Ratio] 12.4 %Kkrlwq75.0-15.0Quest DiagnosticsComment on above:Performed By: #### 6399, 7600, 74919, 69254 #### [facility] of [address], [address] [place] [address] Fittings Tightener: Jose John MDHematocrit (Bld) [Volume fraction]46.1 %High 35.0-45.0Quest DiagnosticsComment on above:Performed By: #### 6399, 7600, 10476, 59263 #### [facility] of [address], [address] [place] [address] Fittings Tightener: Jose John MDHemoglobin (Bld) [Mass/Vol]16.0 g/dLHigh 11.7-15.5Quest DiagnosticsComment on above:Performed By: #### 6399, 7600, 07376, 49397 #### [facility] of [place] [address] Fittings Tightener: Jose John MDLymphocytes (Bld) [#/Vol]1.638 10*3/uLNormal 850-3900Quest DiagnosticsComment on above:Performed By: #### 6399, 7600, 17434, 52259 #### [facility] of [place] [address] Fittings Tightener: Jose John MDLymphocytes/100 WBC (Bld)27.3 %NormalQuest DiagnosticsComment on above:Performed By: #### 6399, 7600, 64699, 30908 #### [facility] of [place] [address] Fittings Tightener: Jose John MDMCH (RBC) [Entitic mass]31.6 viNlkxnn47.0-33.0 Quest DiagnosticsComment on above:Performed By: #### 6399, 7600, 29640, 16033 #### [facility] of [place] [address] Fittings Tightener: Jose John MDMCHC (RBC) [Mass/Vol]34.7 g/rDPdtjfh36.0-36.0 Quest DiagnosticsComment on above:Performed By: #### 6399, 7600, 34487, 36697 #### [facility] of [place] [address] Fittings Tightener: Jose John MDMCV (RBC) [Entitic vol]91.1 mUNjfntc22.0-100.0 Quest DiagnosticsComment on above:Performed By: #### 6399, 7600, 44107, 51115 #### [facility] of [address], [address] [place] [address] Fittings Tightener: Jose John MDMonocytes (Bld) [#/Vol]0.714 10*3/uLNormal 200-950Quest DiagnosticsComment on above:Performed By: #### 6399, 7600, 63459, 86451 #### [facility] of [address], [address] [place] [address] Fittings Tightener: Jose John MDMonocytes/100 WBC (Bld)11.9 %NormalQuest DiagnosticsComment on above:Performed By: #### 6399, 7600, 83833, 67055 #### [facility] of [address], [address] [place] [address] Fittings Tightener: Jose John MDNeutrophils (Bld) [#/Vol]3.384 10*3/uLNormal 1500-7800Quest DiagnosticsComment on above:Performed By: #### 6399, 7600, 55379, 44847 #### [facility] of [address], [address] [place] [address] Fittings Tightener: Jose John MDNeutrophils/100 WBC (Bld)56.4 %NormalQuest DiagnosticsComment on above:Performed By: #### 6399, 7600, 29790, 47249 #### [facility] of [address], [address] [place] [address] Fittings Tightener: Jose John MDPlatelet mean volume (Bld) [Entitic vol]10.9 fLNormal7.5-12.5Quest DiagnosticsComment on above:Performed By: #### 6399, 7600, 02460, 50444 #### [facility] of [address], [address] [place] [address] Fittings Tightener: Jose John MDPlatelets (Bld) [#/Vol]265 10*3/uLNormal 140-400Quest DiagnosticsComment on above:Performed By: #### 6399, 7600, 31093, 63095 #### [facility] of [address], [address] [place] [address] Fittings Tightener: Jose John [facility] ([facility]) [#/Vol]5.06 10*6/uLNormal3.80-5.10 Quest DiagnosticsComment on above:Performed By: #### 6399, 7600, 88192, 04124 #### [facility] of [address], [address] [place] [address] Fittings Tightener: Jose [facility] MDWH[facility] ([facility]) [#/Vol]6.0 10*3/uLNormal3.8-10.8 Quest DiagnosticsComment on above:Performed By: #### 6399, 7600, 74155, 66730 #### [facility] of [address], [address] [place] [address] Fittings Tightener: Jose John MDCOMPREHENSIVE METABOLIC PANELon 09-10-2021 Albumin [Mass/Vol]4.5 g/dLNormal3.6-5.1Quest DiagnosticsComment on above: Performed By: #### 6399, 7600, 22081, 89637 #### [facility] of [address], [address] [place] [address] Fittings Tightener: Jose John MDAlbumin/Globulin [Mass ratio]2.5 {ratio}Normal 1.0-2.5Quest DiagnosticsComment on above:Performed By: #### 6399, 7600, 92618, 05985 #### [facility] of [address], [address] [place] [address] Fittings Tightener: Jose John MDALP [Catalytic activity/Vol]121 U/LNormal 37-153Quest DiagnosticsComment on above:Performed By: #### 6399, 7600, 87552, 35700 #### [facility] of [address], [address] [place], [place] [address] Fittings Tightener: Jose John MDALT [Catalytic activity/Vol]23 U/LNormal6-29 Quest DiagnosticsComment on above:Performed By: #### 6399, 7600, 37330, 83508 #### [facility] of [address], [address] [place] [address] Fittings Tightener: Jose John MDAST [Catalytic activity/Vol]21 U/KVboumc77-38 Quest DiagnosticsComment on above:Performed By: #### 6399, 7600, 59520, 68807 #### [facility] of [address], [address] [place] [address] Fittings Tightener: Jose John MDBilirubin [Mass/Vol]0.7 mg/dLNormal0.2-1.2 Quest DiagnosticsComment on above:Performed By: #### 6399, 7600, 35113, 95545 #### [facility] of [address], [address] [place] [address] Fittings Tightener: Jose John MDBUN/CREATININE RATIONOT APPLICABLENormal6-22 Quest DiagnosticsComment on above:Performed By: #### 6399, 7600, 18362, 79142 #### [facility] of [address], [address] [place] [address] Fittings Tightener: Jose John MDCalcium [Mass/Vol]10.9 mg/dLHigh8.6-10.4Quest DiagnosticsComment on above:Performed By: #### 6399, 7600, 05838, 79763 #### [facility] of [address], [address] [place] [address] Fittings Tightener: Jose John MDChloride [Moles/Vol]106 mmol/XGjxell44-229 Quest DiagnosticsComment on above:Performed By: #### 6399, 7600, 71023, 16345 #### [facility] of [address], [address] [place] [address] Fittings Tightener: Jose John MDCO2 [Moles/Vol]28 mmol/REsxqjr03-41Toeyi DiagnosticsComment on above:Performed By: #### 6399, 7600, 76491, 57521 #### [facility] [place] [address] Fittings Tightener: Jose ACOSTAreatinine [Mass/Vol]0.99 mg/dLNormal0.50-0.99 Quest DiagnosticsComment on above:Result Comment: For patients >49 years of age, the reference limit for Creatinine is approximately 13% higher for people identified as -Montenegrin.Performed By: #### 6399, 7600, 77726, 74210 #### [facility] [place] [address] Fittings Tightener: Jose John MDeGFR NON-AFR. XSSYLVOX57 mL/min/1.74k1Wjbxxm> OR = 60Quest DiagnosticsComment on above:Performed By: #### 6399, 7600, 71591, 17726 #### [facility] [place] [address] Fittings Tightener: Jose Jhon MDGFR/1.73 sq M.predicted among blacks MDRD (S/P/Bld) [Vol rate/Area]69 mL/min/{1.73_m2}Normal> OR = 60[facility] Comment on above:Performed By: #### 6399, 7600, 00415, 82414 #### [facility] [place] [address] Fittings Tightener: Jose John MDGlobulin (S) [Mass/Vol]1.8 g/dLLow1.9-3.7Quest DiagnosticsComment on above:Performed By: #### 6399, 7600, 54469, 58594 #### [facility] [place] [address] Fittings Tightener: Jose John MDGlucose [Mass/Vol]77 mg/lKDikpjs31-93Eydze DiagnosticsComment on above:Result Comment: Fasting reference intervalPerformed By: #### 6399, 7600, 29787, 46385 #### [facility] of [place] [address] Fittings Tightener: Jose John MDPotassium [Moles/Vol]5.0 mmol/LNormal3.5-5.3 Quest DiagnosticsComment on above:Performed By: #### 6399, 7600, 35274, 01186 #### [facility] of [address], [address] [place] [address] Fittings Tightener: Jose John MDProtein [Mass/Vol]6.3 g/dLNormal6.1-8.1Quest DiagnosticsComment on above:Performed By: #### 6399, 7600, 82940, 25819 #### [facility] of [place] [address] Fittings Tightener: Jose John MDSodium [Moles/Vol]139 mmol/LXafqtp712-740Syxvt DiagnosticsComment on above:Performed By: #### 6399, 7600, 77874, 60320 #### [facility] of [place] [address] Fittings Tightener: Jose John MDUrea nitrogen [Mass/Vol]25 mg/dLNormal7-25 Quest DiagnosticsComment on above:Performed By: #### 6399, 7600, 02652, 33569 #### [facility] of [place] [address] Fittings Tightener: Jose John MDLIPID PANEL, STANDARDon 31-98-7298Fhidqpjlwzh [Mass/Vol]129 mg/dLNormal<200Quest DiagnosticsComment on above:Order Comment: FASTING:YES FASTING: YESPerformed By: #### 6399, 7600, 84606, 80137 #### [facility] of [place] [address] Fittings Tightener: Jose ACOSTAholesterol in HDL [Mass/Vol]49 mg/dLLow> OR = 50Quest DiagnosticsComment on above:Order Comment: FASTING:YES FASTING: YESPerformed By: #### 6399, 7600, 41670, 43425 #### [facility] [address], [address] [place] [address] Fittings Tightener: Jose ACOSTAholesterol in LDL [Mass/Vol]57 mg/dLNormal Quest [...] LDL-C. Patrick SS et al. TORIN. 2013;310(19): 8872-5805 (http://education.[employer].PlayJam/faq/DBF230)Performed By: #### 7899, 7600, 14282, 74794 #### [facility] [address], [address] [place] [address] Fittings Tightener: Jose Morrisstsamir.total/Cholesterol in HDL [Mass ratio]2.6 {ratio}Normal<5.0Quest DiagnosticsComment on above:Order Comment: FASTING:YES FASTING: YESPerformed By: #### 6399, 7600, 28565, 26105 #### [facility] [address], [address] [place], [place] [address] Fittings Tightener: Jose STYLES HDL DNVMECKTGJK11 mg/dL (calc)Normal<130 Quest DiagnosticsComment on above:Order Comment: FASTING:YES FASTING: YESResult Comment: For patients with diabetes plus 1 major ASCVD risk factor, treating to a non-HDL-C goal of <100 mg/dL (LDL-C of <70 mg/dL) is considered a therapeutic option.Performed By: #### 6399, 7600, 08893, 73683 #### [facility] [address], [address] [place] [address] Fittings Tightener: Jose John MDTriglyceride [Mass/Vol]155 mg/dLHigh<150Quest DiagnosticsComment on above:Order Comment: FASTING:YES FASTING: YESPerformed By: #### 6399, 7600, 29420, 62583 #### [facility] [address], [address] [place] [address] Fittings Tightener: Jose John MDCONFLUENCE [facility]+FREE T4on 13-78-5513Rvwp T4 [Mass/Vol]1.2 ng/dLNormal0.8-1.8Quest DiagnosticsComment on above:Performed By: #### 6399, 7600, 07185, 28196 #### [facility] [address], [address] [place] [address] Fittings Tightener: Jose John MDCONFLUENCE HEALTH [facility] Qn4.41 m[IU]/LNormal0.40-4.50Quest DiagnosticsComment on above:Performed By: #### 6399, 7600, 02933, 79355 #### [facility] [address], [address] [place] [address] Fittings Tightener: Jose John MDPatient Letter FTon [id number] Letter [facility] April 29, 2021 JESUS WOLF [address] [place] [address] JESUS WOLF 1955 Dear Jesus, This is a SECOND ATTEMPT to remind you that you are due for an appointment with [facility]. Please contact our office at [phone] to schedule an appointment at your earliest convenience. Thank you, [facility] [id number] From: Apryl Cobb To: [facility] - Reminders/Recalls; Sent: 11/14/2020 13:49:43 EDT Show up: 03/17/2021 13:49:00 EDT Subject: Ambulatory Reminder Due Date/Time: 04/28/2021 13:48:00 EDT Reminder/Recall haydee 5 year recall 04/28/2021 first recall letter second [facility] letterFort [facility] HospitalPatient Letter FTon [id number] Letter [facility] March 27, 2021 JESUS WOLF [address] [place] [address] JESUS WOLF 1955 Dear Jesus, This is a reminder that you are due for an appointment with [facility]. Please contact our office at [phone] to schedule an appointment at your earliest convenience. Thank you, [facility] HospitalIMAGE-GUIDED PAP W/AGE BASED SCR PROTOCOLSon [id number] DiagnosticsComment on above:Result Comment: This order for age-based cervical cancer and STI screening follows ACOG guidelines(PB 168, 140, JWI727). See individual assays for performing site location.Performed By: #### 69260, 94256 #### [facility]-[address] [place] [address] Fittings Tightener: Jose John MDResult Comment: EXPLANATORY NOTE: The [...] AND HPV mRNA E6/E7 REFLEX HPV 16,18/45on 48-84-6615DPXYYCCO INFORMATION:NormalQuest DiagnosticsComment on above:Result Comment: None givenPerformed By: #### 32392, 59250 #### [facility]-[address] [place] [address] Fittings Tightener: Jose John MDCOMMENT:NormalQuest DiagnosticsComment on above:Result Comment: This Pap test has been evaluated with computer assisted technology. Parabasal cells in smears that lack maturation due to atrophy or other hormonal reasons cannot be differentiated from transformation zone cells. Accordingly, presence or absence of endocervical or transformation zone components cannot be reported in this patient.Performed By: #### 45485, 04495 #### [facility]-[address], [address] [place] [address] Fittings Tightener: Jose John MDCYTOTECHNOLOGIST:NormalUn[facility] Comment on above:Result Comment: ML, CT(ASCP) CT screening location: [place] [address].Performed By: #### 30626, 68683 #### [facility]-[address], [address] [place] [address] Fittings Tightener: Jose John MDHPV mRNA E6/E7Not detectedNormalNot Detected Quest DiagnosticsComment on above:Result Comment: Methodology: Fixture Builder- Mediated Amplification This assay detects E6/E7 viral messenger RNA (mRNA) from 14 high-risk HPV types (16,18,31,33,35,39,45,51,52,56,58,59,66,68). The analytical performance characteristics of this assay have been determined by [employer]. The modifications have not been cleared or approved by the FDA. This assay has been validated pursuant to the CLIA regulations and is used for clinical purposes. For additional information, please refer to http://education.[employer].PlayJam/faq/UIO870s8 (This link if provided for information/ educational purposes only.) NO COLLECTION DATE RECEIVED. WE HAVE USED THE DATE THE SPECIMEN WAS RECEIVED BY THIS LABORATORY THE COLLECTION DATE. IF THIS IS INCORRECT, PLEASE CONTACT CLIENT SERVICES. PHONE NUMBER: [phone] By: #### 71569, 02299 #### [facility]-[address], [address] [place] [address] Fittings Tightener: Jose John MDINTERPRETATION/RESULT:NormalUnicorn Production Diagnostics Comment on above:Result Comment: Negative for intraepithelial lesion or malignancy. Atrophic pattern; predominantly parabasal cellsPerformed By: #### 62112, 21585 #### [facility]-[address], [address] [place] [address] Fittings Tightener: Jose John MDLMP:NormalQuest DiagnosticsComment on above: Result Comment: None givenPerformed By: #### 46468, 55497 #### [facility]-[address], [address] [place] [address] Fittings Tightener: Jose ALBERT. BX:NormalQuest DiagnosticsComment on above:Result Comment: None givenPerformed By: #### 28823, 26490 #### [facility]-[address], [address] [place] [address] Fittings Tightener: Jose ALBERT. PAP:NormalQuest DiagnosticsComment on above:Result Comment: None givenPerformed By: #### 04503, 20552 #### [facility]-[address], [address] [place], [place] [address] Fittings Tightener: Jose ARMSTRONGOURCE:NormalQuest DiagnosticsComment on above:Result Comment: None givenPerformed By: #### 35241, 89147 #### [facility]-[address], [address] [place] [address] Fittings Tightener: Jose ARMSTRONGTATEMENT OF ADEQUACY:NormalQuest [facility]ostics Comment on above:Result Comment: SATISFACTORY FOR EVALUATIONPerformed By: #### 88721, 11909 #### [facility]-[address], [address] [place] [address] Fittings Tightener: Jose LEER Pelvis and Hip - right AP and Lateral frog on 17-41-0678DEAFKJQGGZ: EXPECTED POSTOPERATIVE APPEARANCE Cylinder Loader: MILLER Transcribe Date/Time: Jan 04 2021 1:47P Dictated by : CARLOS LÓPEZ MD This examination was interpreted and the report reviewed and electronically signed by: CARLOS LÓPEZ MD on Jan 04 2021 1:47PM [facility] DIVISION OF RADIOLOGY* * *Final Report* * [...] spine. No other significant abnormality. [facility] [place] [facility] * * *Final Report* * [...] significant abnormality. IMPRESSION IMPRESSION: EXPECTED POSTOPERATIVE APPEARANCE Cylinder Loader: MILLER Transcribe Date/Time: Jan 04 2021 1:47P Dictated by : CARLOS LÓPEZ MD This examination was interpreted and the report reviewed and electronically signed by: CARLOS LÓPEZ MD on Jan 04 2021 1:47PM EST [facility] ClinicRadiology Study observation (narrative)[facility]appPark[facility] HospitalXR Pelvis and Hip - right AP and Lateral frogOrdered By: Ccf Provider on 01-04-2021 [facility] - right AP and Lateral frogon 11-29-2020 IMPRESSION: SEVERE RIGHT HIP DEGENERATIVE CHANGE Cylinder Loader: MILLER Transcribe Date/Time: Nov 29 2020 11:50A Dictated by : MADISON SMITH MD This examination was interpreted and the report reviewed and electronically signed by: MADISON SMITH MD on Nov 29 2020 11:51AM [facility] DIVISION OF RADIOLOGY* * *Final Report* * [...] change lower lumbar spine. DIVISION OF RADIOLOGYProvider, [facility] [place] - 11/29/2020 * * *Final Report* * [...] IMPRESSION IMPRESSION: SEVERE RIGHT HIP DEGENERATIVE CHANGE Cylinder Loader: MILLER Transcribe Date/Time: Nov 29 2020 11:50A Dictated by : MADISON SMITH MD This examination was interpreted and the report reviewed and electronically signed by: MADISON SMITH MD on Nov 29 2020 11:51AM EST [facility] HospitalRadiology Study observation (narrative)[facility]XR Pelvis and Hip - right AP and Lateral frogOrdered By: Ccf Provider on 11-29-2020 [facility] HospitalUS ABD RT UPPER QUADRANTon 06-03-4852Mdnkswqfv ClinicXR Shoulder - left 3 Viewson 49-35-9117NQQDNMZGGC: Mild degenerative change left shoulder Cylinder Loader: MILLER Transcribe Date/Time: Apr 26 2020 9:31A [...] Acromiohumeral interval is maintained. DIVISION OF RADIOLOGYProvider, [facility] [place] - 04/26/2020 * * *Final Report* * [...] IMPRESSION IMPRESSION: Mild degenerative change left shoulder Cylinder Loader[facility] Transcribe Date/Time: Apr 26 2020 9:31A Dictated by : CHIKIS GARCIA MD This examination was interpreted and the report reviewed and electronically signed by: CHIKIS GARCIA MD on Apr 26 2020 9:32AM EST [facility] HospitalRadiology Study observation (narrative)[facility]XR Shoulder - left 3 ViewsOrdered By: Ccf Provider on 79-60-8825Jwjxrbvfu Clinic Prothrombin Timeon 80-83-5353MCQ Coag RelTime (PPP)1.47 {INR}High0.90-1.10EMH HealthcareComment on above:Performed By: #### [id number] #### [facility] [address] [place], [place] [address]Icqirhznzap time (PT) Coag time (PPP)16.8 sHigh9.7-12.7EMH HealthcareComment on above:Result Comment: PLEASE NOTE NEW REFERENCE RANGE EFFECTIVE 2018Performed By: #### [id number] #### [facility] [address] [place] [address]Aldahbxcupj Timeon 35-80-5652GSE Coag RelTime (PPP)2.23 {INR} High0.90-1.10EMH HealthcareComment on above:Performed By: #### [id number] #### [facility] [address] [place], [place] [address]Mbsunaxlysf time (PT) Coag time (PPP)25.6 sHigh9.7-12.7EMH HealthcareComment on above:Result Comment: PLEASE NOTE NEW REFERENCE RANGE EFFECTIVE 2018Performed By: #### [id number] #### [facility] [address] [place] [address] Vital Signs Date TimeVital SignValuePerforming AuvwojbwaWtvbtkee49-58-2027 08:44-0400Body icrdtw536.2 cmPacc 2 Work Phone: [facility]08-04-2025 08:44-0400Body mass index (BMI) [Ratio]41.43 kg/m2Pacc 2 Work Phone: [facility]08-04-2025 08:44-0400Body temperature 98.2 [degF]Pacc 2 Work Phone: [facility]08-04-2025 08:44-0400Body pakuln702 kg Pacc 2 Work Phone: [facility] HospitalComment on above:with kfyb27-21-2142 08:44-0400Diastolic blood jhiaepgo29 mm[Hg]Pacc 2 Work Phone: [facility]08-04-2025 08:44-0400Heart rate75 /min Pacc 2 Work Phone: [facility]08-04-2025 08:44-0400Respiratory rate 18 /minPacc 2 Work Phone: [facility]08-04-2025 08:44-5764KlW1% (BldA) [Mass fraction]97 %Pacc 2 Work Phone: [facility] HospitalComment on above:GW43-02-7009 08:44-0400Systolic blood mm[Hg]Pacc 2 Work Phone: [facility]06-13-2025 08:39-0400Body xnahel350.2 cmAbisai Barraza PIPE PROCESSOR-JEWELRY MAKER Work Phone: [facility]06-13-2025 08:39-0400 Diastolic blood roftnzbu08 mm[Hg]Abisai Barraza PIPE PROCESSOR-JEWELRY MAKER Work Phone: [facility]06-13-2025 08:39-0400 Systolic blood mm[Hg]Abisai Barraza PIPE PROCESSOR-JEWELRY MAKER Work Phone: [facility]06-12-2025 09:08-0400 Body mass index (BMI) [Ratio]41.79 kg/m2Rheu Digna Work Phone: [facility]06-12-2025 09:08-0400Body temperature 97 [degF]Rheu Digna Work Phone: [facility]06-12-2025 09:08-0400Body foyapo562.67 kgRheu Digna Work Phone: [facility]06-12-2025 09:08-0400Diastolic blood lvcuspvu14 mm[Hg]Rheu Digna Work Phone: [facility]06-12-2025 09:08-0400Heart rate77 /min Rheu Digna Work Phone: [facility]06-12-2025 09:08-0400Systolic blood hgzyeeic922 mm[Hg]Rheu Digna Work Phone: [facility]06-11-2025 09:03-0400Heart rate77 /min Curtis Ogden APRN.JEWELRY MAKER Work Phone: [facility]06-11-2025 09:03-0400Respiratory rate 17 /minCurtis Ogden APRN.JEWELRY MAKER Work Phone: [facility]06-11-2025 09:03-4569AhH4% (BldA) [Mass fraction]97 %Curtis Ogden APRN.JEWELRY MAKER Work Phone: [facility]06-04-2025 09:12-0400Heart rate97 /min Curtis Ogden APRN.JEWELRY MAKER Work Phone: [facility]06-04-2025 09:12-0400Respiratory rate 18 /minCurtis Ogden APRN.JEWELRY MAKER Work Phone: [facility]06-04-2025 09:12-4034GdB1% (BldA) [Mass fraction]97 %Curtis Ogden APRN.JEWELRY MAKER Work Phone: [facility]05-15-2025 09:37-0400Body sydigj518.2 cmWojciech Treviño DO Work Phone: [facility]05-15-2025 09:37-0400Body mass index (BMI) [Ratio]41.34 kg/f1BzrptcWojciech Lobatong DO Work Phone: [facility]05-15-2025 09:37-0400Body nkwjxjgfesi37.49 [degF]Wojciech Treviño DO Work Phone: [facility]05-15-2025 09:37-0400Body kqapnf251.75 kgWojciech Treviño DO Work Phone: [facility]05-15-2025 09:37-0400Diastolic blood yhjiesnh12 mm[Hg]Wojciech Lobatong DO Work Phone: [facility] [facility] 09:37-0400Heart rate 75 /minDbipinis Maxlong DO Work Phone: [facility]05-15-2025 09:37-0400 Respiratory rate18 /Radhais Maxlong DO Work Phone: [facility]05-15-2025 09:37-6909SfM1% (BldA) [Mass fraction]98 %Wojciech Treviño DO Work Phone: [facility]05-15-2025 09:37-0400Systolic blood hofyikva984 mm[Hg]Wojciech Treviño DO Work Phone: [facility]05-08-2025 08:14-0400Body npnccespmxm49.3 [degF]Will Greer MD Work Phone: [facility]05-08-2025 08:14-0400Diastolic blood mm[Hg]Will Greer MD Work Phone: [facility]05-08-2025 08:14-0400Heart rate78 /min Will Greer MD Work Phone: [facility]05-08-2025 08:14-0400Respiratory rate 20 /minWill Greer MD Work Phone: [phone]05-08-2025 08:14-6079XbG2% (BldA) [Mass fraction]96 %Will Greer MD [facility]Comment on above:[id number] 08:14-0400Systolic blood nymuapri639 mm[Hg]Will Greer MD Work Phone: [facility]05-05-2025 13:40-0400Body ruvxnu660.2 cmDenrebecca Santanalong DO Work Phone: [facility]05-05-2025 13:40-0400Body mass index (BMI) [Ratio]40.77 kg/z0Gvzreq Furlong DO Work Phone: [facility]05-05-2025 13:40-0400Body utdfpfqztjt18.4 [degF]Wojciechrebecca Santanalong DO Work Phone: [facility]05-05-2025 13:40-0400Body .12 kgDennis Maxlong DO Work Phone: [facility]05-05-2025 13:40-0400Diastolic blood rxliysyh34 mm[Hg]Wojciech Santanalong DO Work Phone: [facility]05-05-2025 13:40-0400Heart rate 77 /Radhais Maxlong DO Work Phone: [facility]05-05-2025 13:40-0400 Respiratory rate18 /minDbipinis Maxlong DO Work Phone: [facility]05-05-2025 13:40-3411KsP9% (BldA) [Mass fraction]92 %Wojciech Santanalong DO Work Phone: [facility]05-05-2025 13:40-0400Systolic blood fblcxdwi622 mm[Hg]Wojciech Santanalong DO Work Phone: [facility]04-23-2025 10:56-0400Body getroi343.2 cmYuriy Conway MD Work Phone: [facility]04-23-2025 10:56-0400 Body mass index (BMI) [Ratio]40.19 kg/o5AdoycqYuriy Conway MD Work Phone: [facility]04-23-2025 10:56-0400 Body .39 kgYuriy Conway MD Work Phone: [facility]04-23-2025 10:56-0400 Diastolic blood fxkgpeaf18 mm[Hg]Yuriy Conway MD Work Phone: [facility]04-23-2025 10:56-0400 Heart rate76 /minYuriy Conway MD Work Phone: [facility]04-23-2025 10:56-0400 Systolic blood ubqgbcgh193 mm[Hg]Yuriy Conway MD Work Phone: [facility]04-17-2025 11:35-0400 Diastolic blood qjumbzny90 mm[Hg]Rheu Digna Work Phone: [facility]04-17-2025 11:35-0400Heart rate74 /min Rheu Digna Work Phone: [facility]04-17-2025 11:35-0023QdT3% (BldA) [Mass fraction]97 %Rheu Digna Work Phone: [facility]04-17-2025 11:35-0400Systolic blood lokfzhwl534 mm[Hg]Rheu Digna Work Phone: [phone]04-17-2025 09:04-0400Body mass index (BMI) [Ratio]42.05 kg/m2Rheu Digna Work Phone: [phone]04-17-2025 09:04-0400Body temperature 97 [degF]Rheu Digna Work Phone: [facility]04-17-2025 09:04-0400Body .4 kgRheu Digna Work Phone: [facility]04-14-2025 13:52-0400Body yxpron715.2 cmDennis Furlong DO [facility] Phone[facility]-14-2025 13:52-0400Body mass index (BMI) [Ratio]40.27 kg/v5Njwnwm Furlong DO Work Phone: [facility] Cdkwsm89-78-3479 13:52-0400Body napnczrrhwd71.7 [degF]Wojciech Treviño DO Work Phone: [facility] Sznsco62-29-3552 13:52-0400Body .67 kgWojciech Treviño DO Work Phone: [facility] Cvtfoq89-85-9425 13:52-0400Diastolic blood ysxarqbg07 mm[Hg]Wojciech Treviño DO Work Phone: [facility] Xfbuer49-08-9771 13:52-0400Heart rate 77 /Reyna Treviño DO Work Phone: [facility]04-14-2025 13:52-0400 Respiratory rate20 /Reyna Treviño DO Work Phone: [facility]04-14-2025 13:52-8085OeW7% (BldA) [Mass fraction]96 %Wojciech Treviño DO Work Phone: [facility] Csglgo15-83-5916 13:52-0400Systolic blood zquuppsp822 mm[Hg]Wojciech Treviño DO Work Phone: [facility]04-02-2025 08:48-0400Body tyfqwq260.4 cmEmibrook Murphy DO Work Phone: [facility]04-02-2025 08:48-0400Body mass index (BMI) [Ratio]42.78 kg/m0Yyeifrashard Murphy DO Work Phone: [facility]04-02-2025 08:48-0400Body temperature 97.39 [degF]Nadege Murphy DO Work Phone: [facility]04-02-2025 08:48-0400Body sjtacq555.4 kgEmrashard Murphy DO Work Phone: [facility]04-02-2025 08:48-0400Diastolic blood ywcupkfy64 mm[Hg]Nadege Murphy DO Work Phone: [facility]04-02-2025 08:48-0400Heart rate80 /min Nadege Murphy DO Work Phone: [facility]04-02-2025 08:48-0400Systolic blood zpllvdod037 mm[Hg]Nadege Murphy DO Work Phone: [facility]04-01-2025 09:14-0400Body mass index (BMI) [Ratio]42.49 kg/b4UpkhhzRadu Salazar MD Work Phone: [facility]04-01-2025 09:14-0400Body rtyemd067.6 kgGejoselyn Salazar MD Work Phone: [facility]04-01-2025 09:14-0400Diastolic blood mm[Hg]Radu Salazar MD Work Phone: [facility]04-01-2025 09:14-0400Heart rate81 /min Radu Salazar MD Work Phone: [facility]04-01-2025 09:14-0400Systolic blood liowpeem116 mm[Hg]Radu Salazar MD Work Phone: [facility]02-25-2025 16:10-0500Body vjxoxy314.2 cmWojciech Lobatong DO Work Phone: [facility]02-25-2025 16:10-0500Body mass index (BMI) [Ratio]41.1 kg/r5UjtsdtWojciech Santanalong DO Work Phone: [facility] Sgiwcn03-07-2838 16:10-0500Body ubycidrhtxq59.81 [degF]Wojciech Lobatong DO Work Phone: [facility]02-25-2025 16:10-0500Body hhtdeu886.02 kgWojciech Lobatong DO Work Phone: [facility]02-25-2025 16:10-0500Diastolic blood zcnvhtdo98 mm[Hg]Wojciech Furlong DO Work Phone: [facility]02-25-2025 16:10-0500Heart rate 79 /minDennis Furlong DO Work Phone: [facility]02-25-2025 16:10-0500 Respiratory rate20 /minDennis Furlong DO Work Phone: [facility]02-25-2025 16:10-4798ItR8% (BldA) [Mass fraction]98 %Wojciech Furlong DO Work Phone: [facility]02-25-2025 16:10-0500Systolic blood dtxtikiw743 mm[Hg]Wojciech Furlong DO Work Phone: [facility]02-20-2025 09:00-0500Body mass index (BMI) [Ratio]42.27 kg/m2Rheu Digna Work Phone: [facility]02-20-2025 09:00-0500Body temperature 96.69 [degF]Rheu Digna Work Phone: [phone]02-20-2025 09:00-0500Body ftewfu213 kg Rheu Digna Work Phone: [facility]02-20-2025 09:00-0500Diastolic blood xnslebqm04 mm[Hg]Rheu Digna Work Phone: [phone]02-20-2025 09:00-0500Heart rate79 /min Rheu Digna Work Phone: [facility]02-20-2025 09:00-0500Systolic blood opwsgoep966 mm[Hg]Rheu Digna Work Phone: [facility]02-03-2025 10:29-0500Diastolic blood ebkmgxdm91 mm[Hg]Wojciech Furlong DO Work Phone: [facility]02-03-2025 10:29-0500 Heart rate76 /minDennis Furlong DO Work Phone: [facility]02-03-2025 10:29-0500 Respiratory rate16 /minDbipinis Furlong DO Work Phone: [phone]02-03-2025 10:29-0500 SaO2% (BldA) [Mass fraction]96 %Wojciech Furlong DO Work Phone: [phone]02-03-2025 10:29-0500 Systolic blood mm[Hg]Wojciech Santanalong DO Work Phone: [phone]02-03-2025 09:55-0500 Inhaled oxygen flow rate5 L/Radhais Furlong DO Work Phone: [phone]02-03-2025 08:23-0500 Body wknoqt772.18 cmWojciech Santanalong DO Work Phone: [phone]02-03-2025 08:23-0500 Body uagrsijtgyh74.5 [degF]Wojciech Santanalong DO Work Phone: [phone]02-03-2025 08:23-0500 Body onjkpd454.3 kgWojciech Santanalong DO Work Phone: [phone]12-26-2024 12:49-0500 Diastolic blood mm[Hg]Rheu Digna Work Phone: [facility]12-26-2024 12:49-0500Heart rate80 /min Rheu Digna Work Phone: [facility]12-26-2024 12:49-0500Respiratory rate 16 /minRheu Digna Work Phone: [facility]12-26-2024 12:49-4968BuP0% (BldA) [Mass fraction]98 %Rheu Digna Work Phone: [facility]12-26-2024 12:49-0500Systolic blood mm[Hg]Rena Sawyer Work Phone: [facility]12-26-2024 09:44-0500Body mass index (BMI) [Ratio]42.23 kg/m2Rhnatasha Sawyer Work Phone: [facility]12-26-2024 09:44-0500Body guhhhu927.9 kgRhnatasha Sawyer Work Phone: [facility]12-20-2024 15:01-0500Body smibeo555.2 cmYuriy Conway MD Work Phone: [facility]12-20-2024 15:01-0500 Body mass index (BMI) [Ratio]39.97 kg/s9CanjeaYuriy Conway MD Work Phone: [address] [place], [place] [address]12-20-2024 15:01-0500 Body ovzvmb263.76 kgYuriy Conway MD Work Phone: [phone]12-20-2024 15:01-0500 Diastolic blood zjxtbipw54 mm[Hg]Yuriy Conway MD Work Phone: [facility]12-20-2024 15:01-0500 Heart rate81 /minYuriy Conway MD Work Phone: [facility]12-20-2024 15:01-0500 Systolic blood enlqbyag285 mm[Hg]Yuriy Conway MD Work Phone: [facility]11-25-2024 13:27-0500 Body dqihjm967.2 cmDenrebecca Furlong DO Work Phone: [facility] Ckypsv70-72-2890 13:27-0500Body mass index (BMI) [Ratio]40.91 kg/r3Tymkmv Furlong DO Work Phone: [facility] Qfouxm78-85-1349 13:27-0500Body yicxcxwrahs24.59 [degF]Wojciech Furlong DO Work Phone: [facility]11-25-2024 13:27-0500Body .48 kgDennis Furlong DO Work Phone: [facility] Wxunlz09-88-2271 13:27-0500Diastolic blood uknikgbu38 mm[Hg]Wojciech Furlong DO Work Phone: [facility] Cjhksd18-81-1543 13:27-0500Heart rate 89 /minDennis Furlong DO Work Phone: [facility]11-25-2024 13:27-0500 Respiratory rate24 /minDennis Furlong DO Work Phone: [facility]11-25-2024 13:27-1478UtK4% (BldA) [Mass fraction]97 %Wojciech Santanalong DO Work Phone: [facility] Wowenq16-12-1346 13:27-0500Systolic blood zidcuovt371 mm[Hg]Wojciech Santanalong DO Work Phone: [facility] Rvtgmh23-24-5809 08:59-0500Body uyzohe631.2 cmDennis Maxlong DO Work Phone: [facility] Mrvloy50-82-7096 08:59-0500Body mass index (BMI) [Ratio]41.44 kg/c0Tdnbop Furlong DO Work Phone: [facility] Vfhcmt57-00-5122 08:59-0500Body wkgdsqsqddy30.01 [degF]Wojciech Santanalong DO Work Phone: [facility] Pfmiaz30-73-5081 08:59-0500Body ecllhl495.02 kgDennis Maxlong DO Work Phone: [facility] Rcedrb37-39-1092 08:59-0500Diastolic blood wmoimssh49 mm[Hg]Wojciech Santanalong DO Work Phone: [facility] Rctalu02-15-9808 08:59-0500Heart rate 87 /minDennis Furlong DO Work Phone: [facility]11-14-2024 08:59-0500 Respiratory rate20 /Reyna Santanalong DO Work Phone: [facility]11-14-2024 08:59-0690LwW0% (BldA) [Mass fraction]100 %Wojciech Lobatong DO Work Phone: [facility]11-14-2024 08:59-0500Systolic blood mm[Hg]Wojciech Lobatong DO Work Phone: [facility]10-29-2024 09:28-0400Body mass index (BMI) [Ratio]43.57 kg/m2Rhnatasha Moorea Work Phone: [facility]10-29-2024 09:28-0400Body temperature 97.11 [degF]Rena Moorea Work Phone: [phone]10-29-2024 09:28-0400Body bshjur239.6 kgRheu Digna Work Phone: [phone]10-29-2024 09:28-0400Diastolic blood qoxohgjw63 mm[Hg]Georginau Digna Work Phone: [phone]10-29-2024 09:28-0400Heart rate93 /min Rena Moorea Work Phone: [phone]10-29-2024 09:28-0400Systolic blood ofqoarmy852 mm[Hg]Rena Moorea Work Phone: [facility]10-03-2024 15:52-0400Body gfrurq100.2 cmWojciech Lobatong DO Work Phone: [facility]10-03-2024 15:52-0400Body mass index (BMI) [Ratio]41.13 kg/u6EkeqmgWojciech Santanalong DO Work Phone: [facility]10-03-2024 15:52-0400Body .01 [degF]Wojciech Treviño DO Work Phone: [facility] Smiweh57-39-4565 15:52-0400Body lugasp259.11 kgWojciech Treviño DO Work Phone: [facility]10-03-2024 15:52-0400Diastolic blood vmrfenww78 mm[Hg]Wojciech Treviño DO Work Phone: [facility]10-03-2024 15:52-0400Heart rate 72 /Reyna Treviño DO Work Phone: [facility]10-03-2024 15:52-0400 Respiratory rate18 /Reyna Treviño DO Work Phone: [facility]10-03-2024 15:52-7200CfB8% (BldA) [Mass fraction]94 %Wojciech Treviño DO Work Phone: [facility]10-03-2024 15:52-0400Systolic blood bvkksjie601 mm[Hg]Wojciech Treviño DO Work Phone: [facility]10-02-2024 14:47-0400Body mass index (BMI) [Ratio]43.46 kg/u7KaowqNadege Murphy DO Work Phone: [facility]10-02-2024 14:47-0400Body temperature 97 [degF]Nadege Murphy DO Work Phone: [facility]10-02-2024 14:47-0400Body risldv177.3 kgNadege Murphy DO Work Phone: [facility]10-02-2024 14:47-0400Diastolic blood mbdvhvho22 mm[Hg]Nadege Murphy DO Work Phone: [facility]10-02-2024 14:47-0400Heart rate70 /min Nadege Murphy DO Work Phone: [facility]10-02-2024 14:47-0400Systolic blood badowxas058 mm[Hg]Nadege Murphy DO Work Phone: [facility]09-30-2024 11:03-0400Body wdjhux209.2 cmLmack Kaur PIPE PROCESSOR[employer] Work Phone: [facility]09-30-2024 11:03-0400 Body mass index (BMI) [Ratio]41.43 kg/z8Dnttpbh Vincent PIPE PROCESSOR[employer] Work Phone: [facility]09-30-2024 11:03-0400 Body uupjxt407.98 kgChristian Kaur PIPE PROCESSOR[employer] Work Phone: [facility]09-30-2024 11:03-0400 Diastolic blood ghabhiyv08 mm[Hg]Christian Kaur PIPE PROCESSOR[employer] Work Phone: [facility]09-30-2024 11:03-0400 Heart rate67 /minChristian Villasenorer PIPE PROCESSOR[employer]RY [employer]ER Work Phone: [facility]09-30-2024 11:03-0400 SaO2% (BldA) [Mass fraction]91 %Christian Kaur PIPE PROCESSOR[employer] Work Phone: [facility]09-30-2024 11:03-0400 Systolic blood tsufjqhe618 mm[Hg]Christian Kaur PIPE PROCESSOR[employer]RY [employer] Work Phone: [facility]09-03-2024 10:10-0400 Body mass index (BMI) [Ratio]43.25 kg/m2Rheu Digna Work Phone: [facility]09-03-2024 10:10-0400Body temperature 97.11 [degF]Rheu Digna Work Phone: [facility]09-03-2024 10:10-0400Body bacjyt528.7 kgRheu Digna Work Phone: [facility]09-03-2024 10:10-0400Diastolic blood hhxfewgc30 mm[Hg]Rena Sawyer Work Phone: [facility]09-03-2024 10:10-0400Heart rate70 /min Rena Sawyer Work Phone: [facility]09-03-2024 10:10-0400Systolic blood mm[Hg]Rena Sawyer Work Phone: [facility]08-22-2024 13:46-8824XeN7% (BldA) [Mass fraction]97 %Juan Chino MD Work Phone: [facility]08-14-2024 10:05-0400 Body cldjle112.2 cmDenrebecca Santanalong DO Work Phone: [facility] Hshgdq77-75-0561 10:05-0400Body mass index (BMI) [Ratio]41.66 kg/e2Vtrovm Furlong DO Work Phone: [facility] Euuggu87-65-8533 10:05-0400Body mjtlnpftesk73.81 [degF]Wojciech Santanalong DO Work Phone: [facility] Jflcwy40-76-5561 10:05-0400Body duxvel290.66 kgDennis Maxlong DO Work Phone: [facility] Fvexaq60-75-3979 10:05-0400Diastolic blood qfxyufbw02 mm[Hg]Wojciech Furlong DO Work Phone: [facility] Ndjrmz08-43-8134 10:05-0400Heart rate 90 /minDennis Furlong DO Work Phone: [facility] Kiejmb58-49-7428 10:05-0400 Respiratory rate18 /minDennis Furlong DO Work Phone: [facility]08-14-2024 10:05-2578SgY6% (BldA) [Mass fraction]95 %Wojciech Furlong DO Work Phone: [facility]08-14-2024 10:05-0400Systolic blood dlvxxxun008 mm[Hg]Wojciech Treviño DO Work Phone: [facility]07-30-2024 14:25-0400Body xwhyfa106.4 Deejaycathy Marissa PA-C Work Phone: [facility]07-30-2024 14:25-0400Body mass index (BMI) [Ratio]43.75 kg/p0Soxccyln Marissa PA-C Work Phone: [facility]07-30-2024 14:25-0400Body temperature 97.9 [degF]Obdulia Marissa PA-C Work Phone: [facility]07-30-2024 14:25-0400Body koqbjl182.1 kgBintacathy Marissa PA-C Work Phone: [facility]07-30-2024 14:25-0400Diastolic blood mvofoxhl29 mm[Hg]Obdulia Marissa PA-C Work Phone: [facility]07-30-2024 14:25-0400Heart rate77 /min Obdulia Marissa PA-C Work Phone: [facility]07-30-2024 14:25-0400Systolic blood mm[Hg]Obdulia Marissa PA-C Work Phone: [facility]07-09-2024 12:00-0400Diastolic blood mm[Hg]Rheu Digna Work Phone: [facility]07-09-2024 12:00-0400Heart rate70 /min Rheu Digna Work Phone: [facility]07-09-2024 12:00-0400Systolic blood mm[Hg]Rheu Digna Work Phone: [facility]07-09-2024 09:34-0400Body mass index (BMI) [Ratio]41.37 kg/m2Rheu Digna Work Phone: [facility]07-09-2024 09:34-0400Body temperature 97.39 [degF]Georginau Digna Work Phone: [facility]07-09-2024 09:34-0400Body abkubp743.8 kgRheu Digna Work Phone: [facility]07-02-2024 09:04-0400Body gitylb242.2 cmDennis Furlong DO Work Phone: [facility] Qqataa47-08-6769 09:04-0400Body mass index (BMI) [Ratio]41.4 kg/y0Cczfvz Furlong DO Work Phone: [facility]07-02-2024 09:04-0400Body kathks851.89 kgDennis Furlong DO Work Phone: [facility]07-02-2024 09:04-0400Diastolic blood pitvglwr15 mm[Hg]Wojciech Furlong DO Work Phone: [facility]07-02-2024 09:04-0400Systolic blood xoweksrw328 mm[Hg]Wojciech Furlong DO Work Phone: [facility]07-01-2024 16:56-0400Body kedrky609.2 cmLmack Villasenorer PIPE PROCESSOR[employer]KER Work Phone: [facility]07-01-2024 16:56-0400 Body mass index (BMI) [Ratio]41.57 kg/s1Bshmorl Meder PIPE PROCESSOR[employer]ELRY [employer]KER Work Phone: [facility]07-01-2024 16:56-0400 Body eswhmo983.4 kgChristian Meder PIPE PROCESSOR[employer]ER Work Phone: [facility]07-01-2024 16:56-0400 Diastolic blood trtcmcab89 mm[Hg]Christian Villasenorer PIPE PROCESSOR[employer]ER Work Phone: [facility]07-01-2024 16:56-0400 Heart rate68 /minLinlisarita Villasenorjose PIPE PROCESSOR[employer]ELRY MAKER Work Phone: [facility]07-01-2024 16:56-0400 SaO2% (BldA) [Mass fraction]96 %Christian Vincent PIPE PROCESSOR[employer]RY [employer]KER Work Phone: [facility]07-01-2024 16:56-0400 Systolic blood dcwkorxo504 mm[Hg]Christian Kaur PIPE PROCESSOR[employer]RY [employer]KER Work Phone: [facility]05-21-2024 07:22-0400 Body .2 cmJuan Chino MD Work Phone: [facility]05-21-2024 07:22-0400 Body mass index (BMI) [Ratio]41.19 kg/t6XdkqokofJuan Chino MD Work Phone: [facility]05-21-2024 07:22-0400 Body noemen378.3 kgJuan Chino MD Work Phone: [facility]05-14-2024 09:44-0400 Body .2 cmRadu Salazar MD Work Phone: [facility]05-14-2024 09:44-0400Body mass index (BMI) [Ratio]41.09 kg/r1VohjcuRadu Salazar MD Work Phone: [facility]05-14-2024 09:44-0400Body ramuyc627 kg Radu Salazar MD Work Phone: [facility]05-14-2024 09:44-0400Diastolic blood qpouroea15 mm[Hg]Radu Salazar MD Work Phone: [facility]05-14-2024 09:44-0400Heart rate67 /min Radu Salazar MD Work Phone: [facility]05-14-2024 09:44-0400Systolic blood lfppkaim861 mm[Hg]Radu Salazar MD Work Phone: [facility]05-09-2024 09:22-0400Body mass index (BMI) [Ratio]41.71 kg/m2Rheu Digna Work Phone: [phone]05-09-2024 09:22-0400Body temperature 96.49 [degF]Rheu Digna Work Phone: [phone]05-09-2024 09:22-0400Body pkesdg462 kg Rheu Digna Work Phone: [phone]05-09-2024 09:22-0400Diastolic blood vfbbnypc50 mm[Hg]Rheu Digna Work Phone: [phone]05-09-2024 09:22-0400Heart rate76 /min Rheu Digna Work Phone: [phone]05-09-2024 09:22-0400Systolic blood smlatlxw074 mm[Hg]Rheu Digna Work Phone: [phone]05-07-2024 11:16-0400Body mass index (BMI) [Ratio]41.34 kg/h7MfarovDione Frances MD Work Phone: [phone]05-07-2024 11:16-0400Body buvfwe053.94 kgDione Frances MD Work Phone: [phone]05-07-2024 11:16-0400Diastolic blood byoaqfpr88 mm[Hg]Dione Frances MD Work Phone: [phone]05-07-2024 11:16-0400Heart rate76 /min Dione Frances MD Work Phone: [phone]05-07-2024 11:16-0400Systolic blood shqsfaaa595 mm[Hg]Dione Frances MD Work Phone: [phone]04-11-2024 13:14-0400Inhaled oxygen flow rate3 L/minDO Wojciech [facility] Work Phone: [facility]04-11-2024 13:14-0400 SaO2% (BldA) [Mass fraction]99 %DO Wojciech Santanalong Work Phone: [facility]04-11-2024 13:09-0400 Body lhpzoo919.18 cmDO Wojciech Santanalong Work Phone: [facility]04-11-2024 13:09-0400 Body dyyksa898 kgDO Wojciech Santanalong Work Phone: [facility]04-11-2024 13:07-0400 Body buduma408.18 cmDO Wojciech Santanalong Work Phone: [facility]04-11-2024 13:07-0400 Body jnudka374 kgDO Wojciech Santanalong Work Phone: [facility]04-01-2024 15:59-0400 Diastolic blood fzuhmfsk80 mm[Hg]Juan Chino MD Work Phone: [facility]04-01-2024 15:59-0400 Heart iwqb493 /minJuan Chino MD Work Phone: [phone]-[facility]04-01-2024 15:59-0400 Systolic blood elkhooyq275 mm[Hg]Juan Chino MD Work Phone: [phone]04-01-2024 15:57-0400 Body mass index (BMI) [Ratio]41.24 kg/s5ZtusgqxkJuan Chino MD Work Phone: [phone]04-01-2024 15:57-0400 Body bemymk317.44 kgJuan Chino MD Work Phone: [facility]04-01-2024 15:57-0400 SaO2% (BldA) [Mass fraction]95 %Juan Chino MD Work Phone: [facility]03-25-2024 09:34-0400 Body lluvcr086.2 cmAmy [facility]03-25-2024 09:34-0400Body mass index (BMI) [Ratio]41.35 kg/m2Kalyn [facility]03-25-2024 09:34-0400Body tajpwi798.75 kgKalyn [facility]03-25-2024 09:34-0400Diastolic blood mm[Hg]Kalyn [facility]03-25-2024 09:34-0400 Heart rate90 /minKalyn [facility]03-25-2024 09:34-8469OaD3% (BldA) [Mass fraction]94 %Kalyn [facility]03-25-2024 09:34-0400Systolic blood vgawitlt572 mm[Hg]Kalyn [facility]03-14-2024 08:49-0400Body egsjkn057.2 cm Yuriy Conway MD Work Phone: [phone] [place], [place] 5221803-14-2024 08:49-0400 Body mass index (BMI) [Ratio]40.72 kg/r2NvabxzYuriy Conway MD Work Phone: [phone] [place], [place] 5221803-14-2024 08:49-0400 Body ridohh408.94 kgYuriy Conway MD Work Phone: [phone]03-14-2024 08:49-0400 Diastolic blood ahgdedgc13 mm[Hg]Yuriy Conway MD Work Phone: 1(630)113-[address] [place], [place] 5221803-14-2024 08:49-0400 Heart rate96 /minYuriy Conway MD Work Phone: [phone])[address]03-14-2024 08:49-0400 Systolic blood fkabwzxh250 mm[Hg]Yuriy Conway MD Work Phone: 1(063)441-[address] [place], [place] 5221802-27-2024 10:41-0500 Body wuerqi658.9 Arash Ann PA-C Work Phone: [facility]02-27-2024 10:41-0500Body temperature 98.2 [degF]Obdulia Ann PA-C Work Phone: [facility]02-27-2024 10:41-0500Body luzeqp327.7 kgObdulia Ann PA-C Work Phone: [facility]02-27-2024 10:41-0500Diastolic blood ghxaacqc43 mm[Hg]Obdulia Ann PA-C Work Phone: [place] [address]-27-2024 10:41-0500Heart rate90 /min Obdulia Ann PA-C Work Phone: [facility]02-27-2024 10:41-0500Systolic blood iumsemgu926 mm[Hg]Obdulia Dennisanda PA-C Work Phone: [facility]02-15-2024 09:31-0500Body temperature 98.1 [degF]Rheu Digna Work Phone: [facility]02-15-2024 09:31-0500Body iogiba910.8 kgRheu Digna Work Phone: [phone]02-15-2024 09:31-0500Diastolic blood oujxjvlr54 mm[Hg]Rheu Digna Work Phone: [facility]02-15-2024 09:31-0500Heart rate92 /min Rheu Digna Work Phone: [place] [address]-15-2024 09:31-3052JfP7% (BldA) [Mass fraction]98 %Rheu Digna Work Phone: [place] [address]-15-2024 09:31-0500Systolic blood cizfuiqo166 mm[Hg]Rheu Digna Work Phone: [facility]02-01-2024 09:45-0500Heart pqwg576 /minYuriy Conway MD Work Phone: 1(440)414-[address] [place], [place] 5221802-01-2024 09:11-0500 Body utppsm448.2 cmYuriy Conway MD Work Phone: [phone])[address]59 [address]02-01-2024 09:11-0500 Body mass index (BMI) [Ratio]40.72 kg/p4LicmonYuriy Conway MD Work Phone: [phone])[address]02-01-2024 09:11-0500 Body cnvejw857.94 kgYuriy Conway MD Work Phone: [phone])[address]02-01-2024 09:11-0500 Diastolic blood cnaxekxp30 mm[Hg]Yuriy Conway MD Work Phone: [phone]02-01-2024 09:11-0500 Systolic blood raatunmy51 mm[Hg]Yuriy Conway MD Work Phone: 1(110)000-[address] [place], [place] 5221801-16-2024 13:15-0500 Body zsaarv770.2 cmCha Staley PIPE PROCESSOR-VEGETABLE SORTER Work Phone: [facility] Ivqxuz99-86-8482 13:15-0500Body mass index (BMI) [Ratio]40.5 kg/m2Cha Staley PIPE PROCESSOR-VEGETABLE SORTER Work Phone: [facility] Eiwiaw61-19-0661 13:15-0500Body fmdzucdtzsc59.39 [degF]Cha Staley PIPE PROCESSOR-VEGETABLE SORTER Work Phone: [facility]01-16-2024 13:15-0500Body gpyqfm405.3 kgMaryajoey Staley PIPE PROCESSOR-VEGETABLE SORTER Work Phone: [facility] Fvcoxv50-35-3068 13:15-0500Diastolic blood qyhkyibs04 mm[Hg]Cha Staley PIPE PROCESSOR-VEGETABLE SORTER Work Phone: [facility]01-16-2024 13:15-0500Heart rate 64 /minMaryajoey Valientechristiano PIPE PROCESSOR-VEGETABLE SORTER Work Phone: [facility]01-16-2024 13:15-5397RdF9% (BldA) [Mass fraction]98 %Cha Staley PIPE PROCESSOR-VEGETABLE SORTER Work Phone: [facility]01-16-2024 13:15-0500Systolic blood yyvacvfr200 mm[Hg]Cha Staley PIPE PROCESSOR-VEGETABLE SORTER Work Phone: [facility]11-15-2023 09:00-0500Body jkkjdzbhbdo58.1 [degF]Rheu Digna Work Phone: [phone]11-15-2023 09:00-0500Body nbwaur113.48 kgRheu Digna Work Phone: [phone]11-15-2023 09:00-0500Diastolic blood hvosisxh28 mm[Hg]Rheu Digna Work Phone: [phone]11-15-2023 09:00-0500Heart rate69 /min Rheu Digna Work Phone: [phone]11-15-2023 09:00-0500Respiratory rate 18 /minRheu Digna Work Phone: [phone]11-15-2023 09:00-0500Systolic blood gcxonvvp744 mm[Hg]Rheu Digna Work Phone: [phone]08-30-2023 08:59-0400Body uivnyk823.21 kgDione Frances MD Work Phone: [phone]08-30-2023 08:59-0400Diastolic blood suresmeg24 mm[Hg]Dione Frances MD Work Phone: [phone]08-30-2023 08:59-0400Heart rate70 /min Dione Frances MD Work Phone: [phone]08-30-2023 08:59-0400Systolic blood mm[Hg]Dione Frances MD Work Phone: [phone]08-17-2023 08:40-0400Diastolic blood pjmiwmah57 mm[Hg]Dione Frances MD Work Phone: [phone]08-17-2023 08:40-0400Heart rate75 /min Dione Frances MD Work Phone: [phone] [address]-17-2023 08:40-0400Respiratory rate 16 /minDione Frances MD Work Phone: [phone]08-17-2023 08:40-7475JqH2% (BldA) [Mass fraction]96 %Dione Frances MD Work Phone: [phone]08-17-2023 08:40-0400Systolic blood nqanlfzd168 mm[Hg]Dione Frances MD Work Phone: [phone]08-17-2023 08:10-0400Body temperature 99.81 [degF]Dione Frances MD Work Phone: [phone]08-03-2023 10:02-0400Body temperature 97.2 [degF]Rheu Digna Work Phone: [phone]08-03-2023 10:02-0400Body lojjgw357.67 kgRheu Digna Work Phone: [phone]08-03-2023 10:02-0400Diastolic blood mm[Hg]Rheu Digna Work Phone: [phone]08-03-2023 10:02-0400Heart rate66 /min Rheu Digna Work Phone: [phone]08-03-2023 10:02-9960YfH8% (BldA) [Mass fraction]97 %Rheu Digna Work Phone: [phone]08-03-2023 10:02-0400Systolic blood uznugbgo561 mm[Hg]Rheu Digna Work Phone: [phone]06-21-2023 13:14-0400Body temperature 97 [degF]Nadege Murphy DO Work Phone: [facility]06-21-2023 13:14-0400Body qarsis686.4 kgNadege Murphy DO Work Phone: [facility]06-21-2023 13:14-0400Diastolic blood qemteuww06 mm[Hg]Nadege Murphy DO Work Phone: [facility]06-21-2023 13:14-0400Heart rate72 /min Nadege Murphy DO Work Phone: [facility]06-21-2023 13:14-0400Systolic blood uebcznpl211 mm[Hg]Nadege Murphy DO Work Phone: [facility]05-01-2023 13:00-0400Diastolic blood exjzkkvi16 mm[Hg]Rheu Digna Work Phone: [facility]05-01-2023 13:00-0400Heart rate88 /min Rheu Digna Work Phone: [facility]05-01-2023 13:00-0400Systolic blood sfbipvyv984 mm[Hg]Rheu Digna Work Phone: [facility]05-01-2023 10:00-0400Body temperature 97 [degF]Rheu Digna Work Phone: [facility]05-01-2023 10:00-0400Body qnagun707.4 kgRheu Digna Work Phone: [facility]05-01-2023 10:00-0400Respiratory rate 18 /minRheu Digna Work Phone: [facility]02-01-2023 08:45-935162 1Dnicolasa Treviño Work Phone: [phone]-[facility]dc[facility] [address] [place] Work Phone: Comment on above:[id number] 13:15-0500 Diastolic blood qjujgjhh90 mm[Hg]Rheu Digna Work Phone: [facility]01-30-2023 13:15-0500Heart rate75 /min Rheu Digna Work Phone: [facility]01-30-2023 13:15-0500Respiratory rate 18 /minRheu Digna Work Phone: [facility]01-30-2023 13:15-0500Systolic blood vecxucbj17 mm[Hg]Georginau Digna Work Phone: [facility]01-30-2023 10:10-0500Body temperature 97.39 [degF]Georginau Digna Work Phone: [facility]01-30-2023 10:10-0500Body ztjxez368.13 kgRheu Digna Work Phone: [facility]12-30-2022 10:00-438033 1Dennis G Furlong Work Phone: [phone]-QwretAitkin Hospital-[facility] 600 DO Work Phone: Comment on above:[id number] 10:00-0500Body deukox132.18 cmDennis G Furlong Work Phone: mp418-0895QM-CcrfyAitkin Hospital-[place] 250 DO Work Phone: [phone] 965-257912-16-2022 10:00-0500Body mass index (BMI) [Ratio] 38.69 kg/e9Gkdzhl G Furlong Work Phone: [phone]-NagesAitkin HospitalMECON Associates 250 DO Work Phone: 1([phone] 429-141312-16-2022 10:00-0500Body surface area Derived from formula2.21 h3Noserm G Furlong Work Phone: mp345-9590SM-Kjafr [facility] 250 DO Work Phone: 1(831) 496-469212-16-2022 10:00-0500Body clkyto022.04 kgDennis G Furlong Work Phone: mp583-1372CF-Fpzfd [facility] 250 DO Work Phone: 1(836) 434-900912-16-2022 10:00-0500Diastolic blood ajbbkvvc95 mm[Hg] Wojciech Treviño Work Phone: mp297-9134GI-YegwnAitkin Hospital-[facility]herry 250 DO Work Phone: 1([phone]) 108-998612-16-2022 10:00-0500Heart rate72 /minDnicolasa Lobatong Work Phone: mp579-2531WP-JdvlhWestbrook Medical CenterMellette 250 DO Work Phone: 1([phone] 10:00-0500Systolic blood mmugjihe437 mm[Hg] Wojciech Treviño Work Phone: mp320-2312OS-DhulfAitkin Hospital-[place] 250 DO Work Phone: 1([phone] 895-994912-15-2022 08:49-0500Body rdapme277.6 cmPacc 2 Work Phone: [facility]12-15-2022 08:49-0500Body temperature 97 [degF]Pacc 2 Work Phone: [facility]12-15-2022 08:49-0500Body .58 kgPacc 2 Work Phone: [place] [address]-15-2022 08:49-0500Diastolic blood tamzazdw50 mm[Hg]Pacc 2 Work Phone: [facility]12-15-2022 08:49-0500Heart rate79 /min Pacc 2 Work Phone: [place] [address]-15-2022 08:49-0500Respiratory rate 16 /minPacc 2 Work Phone: [place] [address]-15-2022 08:49-2073YcD5% (BldA) [Mass fraction]99 %Pacc 2 Work Phone: [facility]12-15-2022 08:49-0500Systolic blood jlaupaoz799 mm[Hg]Pacc 2 Work Phone: [facility]11-21-2022 11:56-0500Body iijqro860.2 cmMonica Booker MD Work Phone: cC[facility] HospitalFzcune28-59-4238 11:56-0500Body .39 kgMonica Booker MD Work Phone: [facility] HospitalUaqqox15-27-9569 11:56-0500Diastolic blood fsaqtbof95 mm[Hg]Monica Booker MD Work Phone: [facility] HospitalPgcmre73-23-9582 11:56-0500Heart rate80 /min Monica Booker MD Work Phone: YC[facility] HospitalLnntlf99-37-9138 11:56-0500Systolic blood euxfuwmn337 mm[Hg]Monica Booker MD Work Phone: [facility] HospitalWluxiv72-47-8421 15:30-0400Diastolic blood eryvpcqs52 mm[Hg]Rheu Main Work Phone: [facility]10-27-2022 15:30-0400Heart rate72 /min Rheu Main Work Phone: [facility]10-27-2022 15:30-0400Systolic blood mm[Hg]Rheu Main Work Phone: [facility]10-27-2022 12:45-0400Body temperature 97.39 [degF]Rheu Main Work Phone: [phone]10-26-2022 14:38-0400Body .72 kgLemuel Davis MD Work Phone: [phone]10-26-2022 14:38-0400Diastolic blood bjywlcin11 mm[Hg]Lemuel Davis MD Work Phone: [facility]10-26-2022 14:38-0400Heart rate75 /min Lemuel Davis MD Work Phone: [phone]10-26-2022 14:38-0400Systolic blood cbtmyoux021 mm[Hg]Lemuel Davis MD Work Phone: [phone]09-02-2022 15:53-0400Body prelzx581.2 Arash Peña PA-C Work Phone: [facility]09-02-2022 15:53-0400Body temperature 97.3 [degF]Obdulia Rosa PA-C Work Phone: [facility]09-02-2022 15:53-0400Body rsguwx068.72 kgObdulia Peña PA-C Work Phone: [facility]09-02-2022 15:53-0400Diastolic blood rjpjinfa85 mm[Hg]Obdulia Rosa PA-C Work Phone: [facility]09-02-2022 15:53-0400Heart rate73 /min Obdulia Rosa PA-C Work Phone: [facility]09-02-2022 15:53-0400Systolic blood mm[Hg]Obdulia Rosa PA-C Work Phone: [facility]07-28-2022 14:30-0400Diastolic blood edrruymv28 mm[Hg]Rheu Main Work Phone: [facility]07-28-2022 14:30-0400Heart rate68 /min Rheu Main Work Phone: [facility]07-28-2022 14:30-0400Systolic blood nfiteglp83 mm[Hg]Rheu Main Work Phone: [facility]07-28-2022 11:43-0400Body temperature 97.81 [degF]Rheu Main Work Phone: [place] [address]-28-2022 11:12-0400Body temperature 96.91 [degF]Evelin Alicea MD Work Phone: [facility]07-28-2022 11:12-0400Body uagogi469.39 kgEvelin Alicea MD Work Phone: [facility]07-28-2022 11:12-0400Diastolic blood amathdoi64 mm[Hg]Evelin Alicea MD Work Phone: [place] [address]-28-2022 11:12-0400Heart rate67 /min Evelin Alicea MD Work Phone: [facility]07-28-2022 11:12-0400Systolic blood ebgpxbpi719 mm[Hg]Evelin Alicea MD Work Phone: [facility]06-30-2022 16:10-0400Body .18 cmDO [employer] Work Phone: 1(195)390-[address] [place], [place] 5392306-30-2022 16:10-0400 Body mass index (BMI) [Ratio]39.4 kg/m2DO [employer] Work Phone: 1(243)[address] [place], [place] 1441506-30-2022 16:10-0400 Body gnaiqemtqtl64.7 [degF]DO [employer] Work Phone: [phone] [place], [place] 0446306-30-2022 16:10-0400 Body rcjdna639.3 kgDO [employer] Work Phone: 1(649)[address]06-30-2022 16:10-0400 Diastolic blood mm[Hg]DO [employer] Work Phone: 1(303)0-[address] [place], [place] 5392306-30-2022 16:10-0400 Heart sxnz346 /minDO [employer] Work Phone: 1(534)6-[address] [place], [place] 5392306-30-2022 16:10-0400 Respiratory rate18 /minDO [employer] Work Phone: 1(463)6-[address] [place], [place] 5392306-30-2022 16:10-0400 SaO2% (BldA) [Mass fraction]98 %DO [employer] Work Phone: 1(481)3-[address] [place], [place] 5392306-30-2022 16:10-0400 Systolic blood daciizvj255 mm[Hg]DO [employer] Work Phone: 1(757)[address] [place], [place] 1441506-26-2022 08:00-0400 Body rqeklcepbqk12.9 [degF]DO Wojciech Furlong Work Phone: 1(040)[address] [place], [place] 1441506-26-2022 08:00-0400 Diastolic blood mm[Hg]DO Wojciech Furlong Work Phone: 1(953)[address] [place], [place] 1441506-26-2022 08:00-0400 Heart rate71 /minDO Wojciech Furlong Work Phone: 1(298)[address] [place], [place] 1441506-26-2022 08:00-0400 Respiratory rate18 /minDO Wojciech Furlong Work Phone: 1(764)[address] [place], [place] 1441506-26-2022 08:00-0400 SaO2% (BldA) [Mass fraction]94 %DO Wojciech Furlong Work Phone: 1(921)[address] [place], [place] 1441506-26-2022 08:00-0400 Systolic blood mm[Hg]DO Wojciech Furlong Work Phone: 1(700)[address] [place], [place] 1441506-26-2022 05:37-0400 Body demxjk769.1 kgDO Wojciech [employer] Work Phone: 1(345)[address] [place], [place] 1441506-24-2022 20:42-0400 Body zvebqi883.64 cmDO Wojciech [employer] Work Phone: 1(570)[address] [place], [place] 1441506-24-2022 20:42-0400 Body mass index (BMI) [Ratio]41.3 kg/m2DO Wojciech Furlong Work Phone: 1(361)[address] [place], [place] 1441506-24-2022 19:13-0400 Diastolic blood flameupj95 mm[Hg]DO Wojciech Furlong Work Phone: 1(083)[address] [place], [place] 1441506-24-2022 19:13-0400 Heart rate75 /minDO Wojciech Furlong Work Phone: 1(019)[address] [place], [place] 1441506-24-2022 19:13-0400 Respiratory rate18 /minDO Wojceich Furlong Work Phone: [phone]06-24-2022 19:13-0400 SaO2% (BldA) [Mass fraction]98 %DO Wojciech Treviño Work Phone: [phone]06-24-2022 19:13-0400 Systolic blood nlycanuk652 mm[Hg]DO Wojciech Treviño Work Phone: 1(823)[address] [place], [place] 1441506-24-2022 11:48-0400 Body thjgbeypwvu02.1 [degF]DO Wojciech [employer]Black[employer] Work Phone: 1(525)[address] [place], [place] 1441506-24-2022 11:47-0400 Body pwuzmh044.64 cmDO Wojciech LobatoBlack[employer] Work Phone: 1(680)[address] [place], [place] 1441506-24-2022 11:47-0400 Body mass index (BMI) [Ratio]41.1 kg/m2DO Wojciech [employer]Black[employer] Work Phone: 1(424)[address] [place], [place] 1441506-24-2022 11:47-0400 Body .66 kgDO Wojciech LobatoBlackboard Work Phone: [phone])[address] [place], [place] 5392304-25-2022 14:45-0400 Diastolic blood mcungmdy34 mm[Hg]Rheu Main Work Phone: [facility]04-25-2022 14:45-0400Heart rate75 /min Rheu Main Work Phone: [facility]04-25-2022 14:45-0400Systolic blood yhigffui940 mm[Hg]Rheu Main Work Phone: [facility]04-25-2022 12:00-0400Body temperature 97.3 [degF]Rheu Main Work Phone: [facility]01-27-2022 08:50-0500Diastolic blood ucutzegw43 mm[Hg]Dione Frances MD Work Phone: [facility]01-27-2022 08:50-0500Heart rate66 /min Dione Frances MD Work Phone: [facility]01-27-2022 08:50-0500Respiratory rate 16 /minDione Frances MD Work Phone: [facility]01-27-2022 08:50-8239YqU1% (BldA) [Mass fraction]97 %Dione Frances MD Work Phone: [facility]01-27-2022 08:50-0500Systolic blood nkpvumio135 mm[Hg]Dione Frances MD Work Phone: [facility]01-27-2022 08:24-0500Body temperature 97.39 [degF]Dione Frances MD Work Phone: [facility] Encounters Encounter DateEncounter TypeCare ProviderFacilityStart: 06-26-2025 End: 70-67-8063gjhdshtulpTMJMCrlwgwjw:[facility] Rehabilitationtart: 06-21-2025 End: 45-21-6160pagxgnknzkXCLZRZ GERARD FURLONGFacility:[facility] Start: 06-16-2025 End: 67-35-7813itzafckfyaREIVRI GERARD FURLONGFacility:[facility] Start: 06-05-2025 End: 36-94-4269HstcavPqbwtm G Furlong DO Work Phone: [facility] MedicineStart: 05-30-2025 End: 02-17-9204mqasnpyuzcHGBWOB GERARD FURLONGFacility:[facility] Start: 05-25-2025 End: 45-28-3528imoqxoqoxoXOPHYW GERARD FURLONGFacility:[facility] Start: 05-24-2025 End: 98-65-2492jcrcgaqvdzEGKJVX GERARD FURLONGFacility:[facility] Start: 05-17-2025 End: 56-84-8408FsxtlySvim Cooper [facility] HEALTHProMedica Physicians [facility] - Family MedicineStart: 05-03-2025 End: 35-25-7921Igehota encounter procedureCast Tech [place] Work Phone: OrthopaedicsComment on above:Primary osteoarthritis of both feet (Primary Dx)Charcot arthropathy (Primary Dx)Start: 05-03-2025 End: 09-13-3641gxavrkdzsgUWWBLS FRANCISCO JAVIER SANTANAJASONFacility:[facility] Start: 05-02-2025 End: 03-11-8800OogncvVfgfge G Furlong DO Work Phone: [facility]: 04-26-2025 End: 88-66-3282twdlmqhbxtMkwgui Leone MD Work Phone: GastroenterologyComment on above:Stomach / diarrhea Start: 04-26-2025 End: 93-56-2886Xmbtwx-up Radha Treviño DO Work Phone: [facility] Family MedicineComment on above:C difficile by PCRStart: 04-26-2025 End: 84-35-9546Rpkctuhdm Scarlett Frances MD Work Phone: GastroenterologyComment on above:Diarrhea, stomach crampingStart: 04-25-2025 End: 87-76-9807Psyjax OnlyJenarorebecca Treviño DO Work Phone: [facility] Family MedicineComment on above:Diarrhea of presumed infectious origin (Primary Dx) Start: 04-24-2025 End: 41-80-1574brwwrwynhxJytbokjfTyesha Prather PA-C Work Phone: [facility] ClevelandComment on above:TherapyStart: 04-18-2025 End: 73-80-8919Dajgqgbth Jose Roberto Hall MD Work Phone: OrthopaedicsStart: 04-18-2025 End: 77-54-0700Vucshwt encounter procedureFercho Prather PA-C Work Phone: [facility] ClevelandComment on above:Charcot arthropathy (Primary Dx)Office visitStart: 04-18-2025 End: 82-48-5646kzlucnxwfmTgfxw Chawla MD Work Phone: OrthopaedicsStart: 04-03-2025 End: 97-14-8535yjeypdcpqoFVPGJ CHAWLAcility:[facility]tart: 03-23-2025 End: 29-71-2329ybgpkllwxoJXNIAthovgea:[facility] HospitalStart: 03-22-2025 End: 27-40-7469QzltroAqsokz Taz Luis Alfredomolly DO Work Phone: [facility] Family MedicineStart: 03-21-2025 End: 75-16-8144I-mail encounter from caregiverMecan Gallegos RNInfusionStart: 03-21-2025 End: 43-09-0782Zhowrzt encounter procedureMecan Gallegos RNInfusionComment on above:Infusion AppointmentStart: 03-20-2025 End: 21-64-9103Ycwrcymir encounterEmily Susan BianchiRadames DO Work Phone: RheumatologyComment on above:Procedure; InfusionStart: 03-20-2025 End: 58-37-9185Vxzankinf to establishmentH[facility] 2 Work Phone: Pre AnesthesiaStart: 03-20-2025 End: 42-44-4979Zbqctjhwjq consultationHca [facility] 2 Work Phone: Pre AnesthesiaComment on above:Pre-op [...] Class III, BMI >= 40Start: 03-20-2025 End: 27-72-7519Cucypzmbipbwl examination [facility] Work Phone: [facility] Work Phone: Start: 03-20-2025 End: 76-06-0018fyxxzxbpguCYJZP CHAWLAFacility:[facility] Rehabilitationtart: 38-05-3325Vsohvikqk for other preprocedural examinationMICHAEL JOANCleveland Clinic Children'S Hospital For RehabilitationStart: 03-10-2025 End: 22-90-7229Pjrvure encounter procedureAlshilpa Childress MD Work Phone: OrthopaedicsComment on above:Primary osteoarthritis of left knee (Primary Dx)Start: 03-10-2025 End: 34-95-5301yojnaoftpvCRQEWL GERARD FURNGFacility:[facility] Start: 02-21-2025 End: 33-37-2831YjibvhFfqhjesfDaryl Ann PA-C Work Phone: [facility] CenterComment on above:Refill RequestPreparations For Surgery (Eliquis instructions)Start: 02-20-2025 End: 15-86-9341Hxhjcwkju to same day surgery centerTamara A Bevelacqua RNPre AnesthesiaComment on above:Preparations For Surgery (PACC)Start: 02-20-2025 End: 98-21-8273wzhtqnwafjXttcjv A Bevelacqua RNPre AnesthesiaStart: 02-14-2025 End: 17-46-6631qsqaorsxolNabgy Chawla MD Work Phone: OrthopaedicsStart: 02-14-2025 End: 13-55-0661Cvbbwxn encounter procedureSkristopher Hall MD Work Phone: OrthopaedicsComment on above:My chart questionStart: 02-07-2025 End: 86-82-7555Ogwmtg Christian Hall MD Work Phone: OrthopaedicsComment on above:Arthritis, neuropathic (Primary Dx); Bone diseaseStart: 02-03-2025 End: 34-33-3346Utnjqnvme encounterSkristopher Hall MD Work Phone: OrthopaedicsComment on above:Surgical Follow UpStart: 02-03-2025 End: 09-99-6371yzzrngcylbUZSCG CHAWLAFacility:[facility] Rehabilitationtart: 02-01-2025 End: 15-30-4636Uplqrba encounter procedureNarcisa Velazquez PT Work Phone: [facility] Physical TherapyComment on above: Pain in left foot (Primary Dx); Closed fracture of left foot, initial encounter; Pain in right footStart: 02-01-2025 End: 29-38-9325Buqoeo outpatient visit 15 minutesAiden Hall MD Work Phone: OrthopaedicsComment on above:Charcot arthropathy (Primary Dx); Disorder of bone, unspecifiedStart: 02-01-2025 End: 15-38-0691ffmiqazuefCdwrevps Burkhart PT Work Phone: [facility]rendan Estela [facility] Physical TherapyStart: 02-01-2025 End: 87-95-4033Spdudnznpj hospital visit by physicianGe[facility] ([facility]) Work Phone: [facility] Radiology CT ScanComment on above:DJD (degenerative joint disease), ankle and foot, right [M19.071]Start: 01-30-2025 End: 03-03-6544Qkvqsfwxs encounterSchayo Cerda PTNOMS CI PTComment on above:re: PTStart: 01-27-2025 End: 21-91-0875Yufuin outpatient visit 25 minutesAbisai Barraza PIPE PROCESSOR-JEWELRY MAKER Work Phone: [facility] HospitalComment on above:Pre-operative clearance (Primary Dx); BMI 40.0-44.9, adult (Multi); Paroxysmal atrial fibrillation (Multi); alf current use of anticoagulant therapy; Deep vein thrombosis (DVT) of upper extremity, unspecified chronicity, unspecified laterality, unspecified vein; Presence of Watchman left atrial appendage closure deviceStart: 01-27-2025 End: 58-98-5860Itrhbtnwhmcr stateDsari Barraza APRN-JEWELRY MAKER Work Phone: [facility] Work Phone: Start: 01-27-2025 End: 86-05-2504vfkenugrgxHIOLHAtrium Health [facility] AmbulatoryStart: 01-27-2025 End: 74-82-7669Oevvnxwiy for other preprocedural examinationNorthwell Health AmbulatoryStart: 01-26-2025 End: 15-31-5818Bsrkvynpo encounterSkristopher Hall MD Work Phone: OrthopaedicsComment on above:Patient UpdateStart: 01-26-2025 End: 07-09-6321vgnhvizdasKcub Chair [address] Work Phone: InfusionComment on above:Systemic lupus erythematosus, unspecified SLE type, unspecified organ involvement status (HCC) (Primary Dx) Start: 01-25-2025 End: 10-35-0921Qaxafyi encounter procedureCurtis [place] APRN.JEWELRY MAKER Work Phone: OtolaryngologyComment on above:Left-sided epistaxis (Primary Dx); Nasal vestibulitis; alf (current) use of anticoagulantsStart: 01-25-2025 End: 70-08-1395xkboacplzoNHDCALR R JOHNSONFacility:[facility] Start: 01-23-2025 End: 52-66-6795Nxnwfp outpatient visit 15 Brandy Hall MD Work Phone: OrthopaedicsComment on above:Closed fracture of left foot, initial encounter (Primary Dx)Start: 01-23-2025 End: 34-37-9122wjzakbtbioKdeul Susan Murphy DO Work Phone: RheumatologyComment on above:Virgial apptStart: 01-19-2025 End: 97-35-7666LvdjajUuebce Taz Treviño DO Work Phone: [facility] - Family MedicineComment on above:Closed displaced fracture of navicular bone of right foot with delayed healing, subsequent encounter (Primary Dx)Sprain of right foot, initial encounter [S93.601A]Start: 01-18-2025 End: 54-14-8948Szijgjt encounter procedureCurtis Ogden APRN.JEWELRY MAKER Work Phone: OtolaryngologyComment on above:Left-sided epistaxis (Primary Dx); alf (current) use of anticoagulantsStart: 01-18-2025 End: 58-42-3273umfsdotbqdJHUNOAY R JOHNSONFacility:[facility] Start: 01-17-2025 End: 57-13-4345J-mail encounter from caregiverBeverly Franco DPM Work Phone: PodiatryStart: 01-17-2025 End: 17-60-2540Xpbhznm encounter procedureBeverly Franco DPM Work Phone: PodiatryComment on above:XrayStart: 12-29-2024 End: 51-38-2953yrvfjtazhhRXFCNFClear View Behavioral Health Ambulatory PPGStart: 12-29-2024 End: 11-03-2789Avolbt outpatient visit 25 minutesGunnison Valley Hospital DO Work Phone: [facility] - Family MedicineComment on above:Intertrigo (Primary Dx); Essential hypertension; Closed nondisplaced fracture of navicular bone of right foot with routine healing, subsequent encounter; Paroxysmal atrial fibrillation ([facility]-HCC); Obesity, morbid (CMS-HCC); Chronic depressionStart: 12-22-2024 End: 54-54-9946Dypwhgf encounter Jr Greer MD Work Phone: ulmonary MedicineComment on above:Chronic diastolic congestive heart failure (HCC) (Primary Dx); Pulmonary hypertension (HCC); Obstructive sleep apnea syndrome; Obesity, Class III, BMI >= 40Start: 12-22-2024 End: 77-01-2494mvgscfgivyFHGD MAHONEYFacility:[facility] Rehabilitationtart: 12-21-2024 End: 25-23-5970Kcwqgsz encounter procedureBeverly Franco DPM Work Phone: PodiatryComment on above:Sprain of right foot, initial encounter (Primary Dx); Closed nondisplaced fracture of navicular bone of right foot, initial encounter; Osteoarthritis of midtarsal joint of right footStart: 12-21-2024 End: 91-54-7169dysiszwzhrUNDHWWA J SHLONSKYFacility:[facility] Start: 12-21-2024 End: 98-30-9039Gnvlvrxrnv hospital visit by physicianXr Ortho [facility] Rej Work Phone: RadiologyComment on above:Pain in right foot [M79.671] Start: 12-20-2024 End: 85-19-5384Dptxkmxhg encounterRolandomarva Franco DPM Work Phone: PodiatryComment on above:Appointment (Xray)Start: 12-19-2024 End: 08-85-9978N-mail encounter from caregiverBeverly Franco DPM Work Phone: PodiatryStart: 12-19-2024 End: 52-27-1000Uktctve encounter procedureBeverly Franco DPM Work Phone: PodiatryComment on above:XrayStart: 12-19-2024 End: 30-99-1113Mhvkybbgu encounterChristopher Oziel Robert DPM Work Phone: OrthopaedicsComment on above:Foot SwellingPain in right foot (Primary Dx)Start: 12-19-2024 End: 18-96-8834Cmsstw outpatient visit 15 minutesWojciech Treviño DO Work Phone: [facility] - Family MedicineComment on above:Acute right ankle pain (Primary Dx); Pedal edemaStart: 12-19-2024 End: 75-46-1742pnloakbywuHJCCBQ G [facility] - [facility]CARENGUC [facility] Ambulatory PPGStart: 12-09-2024 End: 46-20-2684PzhvdqHitwat G Furlong DO Work Phone: [facility] - Family MedicineStart: 12-07-2024 End: 41-08-4677Nsbdbg outpatient visit 25 minutesYuriy Conway MD Work Phone: uh FirelandsComment on above:Paroxysmal atrial fibrillation (Multi) (Primary Dx); Presence of Watchman left atrial appendage closure device; Deep vein thrombosis (DVT) of upper extremity, unspecified chronicity, unspecified laterality, unspecified vein; emt intermediate current use of anticoagulant therapy; Chronic diastolic heart failure; Aneurysm of ascending aorta without rupture; Essential hypertension; Mixed hyperlipidemia; Obstructive sleep apnea; Never smoked any substance; BMI 40.0-44.9, adult (Multi); High risk medication use; Hyperlipidemia, unspecified hyperlipidemia type; Atypical atrial flutter; Morbid obesity (Multi); Other forms of systemic lupus erythematosus, unspecified organ involvement status (Multi)Start: 12-07-2024 End: 12-60-2915tihqxathtfKNUTXXPiedmont [facility] AmbulatoryStart: 12-01-2024 End: 65-39-9342ywoujqzhcfCgki Chair [address] Work Phone: InfusionComment on above:Systemic lupus erythematosus, unspecified SLE type, unspecified organ involvement status (HCC) (Primary Dx) Start: 11-30-2024 End: 06-45-7513JybxszFnpugm Leone MD Work Phone: GastroenterologyComment on above:Refill RequestStart: 11-28-2024 End: 48-36-9643Zvfgsj outpatient visit 15 minutesWojciech Treviño DO Work Phone: [facility] Phys[facility] Internal Medicine - Family MedicineComment on above:Localized osteoarthritis of left knee (Primary Dx) Start: 11-28-2024 End: 99-77-5526rcxnzdsbysLQAWMJCherry County Hospital Ambulatory PPGStart: 11-23-2024 End: 51-30-9592Whcvdflpr encounterEmrashard Murphy DO Work Phone: RheumatologyComment on above:Received Outside Medical RecordsStart: 11-23-2024 End: 01-51-7557hpqrrmdgllORXRRBPiedmont Cartersville [facility] Center AmbulatoryStart: 11-17-2024 End: 85-41-1302Gouhie-up encounterGejoselyn Salazar MD Work Phone: [facility] [place]oven[facility] HealthStart: 11-16-2024 End: 11-51-3699ljxjrjzyiuBHKZMO THOMASFacility:[facility] Rehabilitationtart: 11-16-2024 End: 47-80-3340Smejjha encounter procedureEmrashard Murphy DO Work Phone: RheumatologyComment on above:Systemic lupus erythematosus, unspecified SLE type, unspecified organ involvement status (HCC) (Primary Dx)Start: 11-15-2024 End: 10-06-7187EnsupyKbrgbt Leone MD Work Phone: GastroenterologyComment on above:Refill RequestStart: 11-15-2024 End: 77-37-4903btsyfypjqdZKIWOM THOMASFacility:[facility] Rehabilitationtart: 11-15-2024 End: 84-53-6978Lpqcnwz encounter procedureGejoselyn Salazar MD Work Phone: [facility] MedicineComment on above:Lupus nephritis, ISN/RPS class V (HCC) (Primary Dx); Stage 3a chronic kidney disease (HCC); Membranous glomerulonephritis; Hypertension, unspecified typeStart: 10-16-2024 End: 67-68-9853CmfvrzLnyzfe Leone MD Work Phone: GastroenterologyComment on above:Refill RequestStart: 10-11-2024 End: 85-71-8829Mszqjh outpatient visit 25 minutesPioneers Medical Centerrebecca Treviño DO Work Phone: [facility] - Family MedicineComment on above:Obstructive sleep apnea (Primary Dx); Dyspnea on exertion; Systemic lupus erythematosus, unspecified SLE type, unspecified organ involvement status (CMS-HCC); Acute deep vein thrombosis (DVT) of brachial vein of left upper extremity ([facility]-HCC); Obesity, morbid ([facility]-HCC); Chronic diastolic heart failure ([facility]-HCC); Atypical atrial flutter ([facility]-HCC)Start: 10-11-2024 End: 35-23-7794colyaxwuciOFVNOL [facility] Ambulatory PPGStart: 10-06-2024 End: 48-96-5614oyskofgxrhDgzl Chair Kenton Sawyer Work Phone: InfusionComment on above:Systemic lupus erythematosus, unspecified SLE type, unspecified organ involvement status (HCC) (Primary Dx) Start: 10-04-2024 End: 20-28-4188dtcnboilepJha ProviderInfusionComment on above:infusion 10/06/24 Start: 10-04-2024 End: 29-13-8650S-mail encounter from [facility] ProviderInfusionStart: 09-30-2024 End: 61-67-1284njsawsvtlnCTQZZI LEONEFacility:[facility] Rehabilitationtart: 09-30-2024 End: 31-72-6932Qqrxzs outpatient visit 25 minutesDione Frances MD Work Phone: GastroenterologyComment on above:Diarrhea, unspecified type (Primary Dx); Gastroesophageal reflux disease without esophagitis; Bile acid malabsorption syndrome; Other ulcerative colitis without complication (HCC)Start: 09-19-2024 End: 29-07-8665Cwrkyoljm to same day surgery centerDennis Furlong DO Work Phone: [facility] Main BaragaStart: 09-19-2024 End: 45-58-2541mrroljcgnaBisgbs Furlong DO Work Phone: [facility] Work Phone: Start: 09-16-2024 End: 80-39-0619NvyiarPhbztj G Furlong DO Work Phone: [facility] - Family MedicineStart: 09-15-2024 End: 55-95-1645Nusqtqj encounter procedureDennis Furlong DO Work Phone: [facility]-CT Scan Main [place] Work Phone: Start: 09-15-2024 End: 37-20-6036atqvsvcemtXcuwrx Furlong DO Work Phone: [facility] Work Phone: Start: 09-12-2024 End: 42-06-5309ihcvlsjtdlSXALMW M [facility] Clinictart: 09-12-2024 End: 66-63-2974Zakfadxchr hospital visit by Colette Powell Echo/Vasc Room 2[facility]'s HospitalComment on above:Chronic diastolic heart failure; Shortness of breathStart: 09-08-2024 End: 82-16-5034YlusglQjtbag Leone MD Work Phone: GastroenterologyComment on above:Refill RequestStart: 61-86-9443Cio-patient / Non-visitDennis Furlong DO Work Phone: [facility] Work Phone: Start: 08-29-2024 End: 11-49-8630Owwuumy encounter procedureDennis Furlong DO Work Phone: [facility] Work Phone: Start: 08-29-2024 End: 90-63-9429crzicnsvmrXyqgym Furlong DO Work Phone: [facility] Work Phone: Start: 08-15-2024 End: 53-71-4511Unylcne encounter status[address] Work Phone: Start: 08-15-2024 End: 25-35-8811Ngypnizpve hospital visit by Colette Huynhhc[address] [place], [place] [address]Comment on above:Paroxysmal atrial fibrillation (Multi); Epistaxis; Anemia, unspecified type; Preop testingStart: 08-15-2024 End: 58-89-4351gyecntbjxzAVKPTCRRKettering Health Springfieldtart: 08-15-2024 End: 30-05-4766Xqbigqqum for other preprocedural examinationBlanchard Valley Health System Bluffton Hospitaltart: 08-11-2024 End: 07-48-0689Wbkrzqvqn encounterAlfred Fior CHILDERS Work Phone: OrthopaedicsComment on above:Appointment (Ortho appt cancel/reschedule)Start: 08-11-2024 End: 01-30-5295bkyjerlrzfZbai Chair [address] Work Phone: InfusionComment on above:Paroxysmal atrial fibrillation (HCC) (Primary Dx); Epistaxis; Preoperative examination, unspecified; Systemic lupus erythematosus, unspecified SLE type, unspecified organ involvement status (HCC)Start: 95-19-3755Wmhafmpoi for other preprocedural examinationMICHAEOhio State Health SystemStart: 08-11-2024 End: 77-57-8126Xeucswamwqjtm examination doneRena Sawyer Work Phone: [facility] Hospitaltart: 08-09-2024 End: 69-03-6557shkwgtxhuyFLNGRVMNMagruder Memorial Hospitaltart: 08-08-2024 End: 03-82-3610Vdefarrfo encounterCecille Casillas RNInfusionComment on above: AppointmentStart: 08-05-2024 End: 66-00-4094Cdxbwl outpatient visit 40 minutesYuriy Conway MD Work Phone: FirelandsComment on above:Paroxysmal atrial fibrillation (Multi) (Primary Dx); High risk medication use; Chronic diastolic heart failure; Shortness of breath; Essential hypertension; Aneurysm of ascending aorta without rupture ([facility]-HCC); Obstructive sleep apnea; Never smoked any substance; BMI 39.0-39.9,adult; Deep vein thrombosis (DVT) of axillary vein of left upper extremity, unspecified chronicity (Multi); Other forms of systemic lupus erythematosus, unspecified organ involvement status (Multi)Start: 08-05-2024 End: 11-80-7174zfvyteaigoKBRUHC M [facility] HospitalStart: 07-18-2024 End: 11-46-0499Fjhxaq Estiven Treviño DO Work Phone: [facility] - Family MedicineStart: 07-18-2024 End: 17-64-6391SyqlntJepsje G Furlong DO Work Phone: [facility] - Family MedicineStart: 07-16-2024 End: 19-15-1357XcvwcqCnjylb Leone MD Work Phone: GastroenterologyComment on above:Refill Request (Pantoprazole 40mg/)Start: 07-11-2024 End: 30-03-0870Rvigxk outpatient visit 15 minutesGunnison Valley Hospital DO Work Phone: [facility] Phys[facility] Internal Medicine - [facility] Children’S HospitalComment on above:Upper respiratory tract infection, unspecified type (Primary Dx); Pharyngitis, unspecified etiologyStart: 07-11-2024 End: 16-13-5129lmllyhdyovFFILPKCherry County Hospital Ambulatory PPGStart: 06-30-2024 End: 07-48-3783Fdjypw outpatient visit 25 minutesGunnison Valley Hospital DO Work Phone: [facility] Physicians Internal Medicine [facility] - MidtownComment on above:Acute deep vein thrombosis (DVT) of brachial vein of left upper extremity (CMS-HCC) (Primary Dx); Paroxysmal atrial fibrillation ([facility]-HCC); Stage 3a chronic kidney disease ([facility]-HCC); Localized osteoarthritis of right knee; Obesity, morbid ([facility]-HCC)Start: 06-30-2024 End: 77-41-0142itxkajmuovSJNDXQCherry County Hospital Ambulatory PPGStart: 06-14-2024 End: 60-99-5615gnauflkckpKnjv Chair [address] Work Phone: InfusionComment on above:Systemic lupus erythematosus, unspecified SLE type, unspecified organ involvement status (HCC) (Primary Dx) Start: 06-13-2024 End: 04-36-0306FyisznPjcgpf G Furlong DO Work Phone: [facility] Physicians Internal Medicine [facility] Hospitaltart: 06-10-2024 End: 57-76-1011mrwneumfzdWki ProviderInfusionComment on above:Infusion Thursday06/14/24Start: 06-10-2024 End: 08-12-0373B-mail encounter from [facility] ProviderInfusionStart: 05-27-2024 End: 16-19-8060Bcsqhd OnlyEmrashard Murphy DO Work Phone: RheumatologyComment on above:Systemic lupus erythematosus, unspecified SLE type, unspecified organ involvement status (HCC) (Primary Dx)Start: 05-26-2024 End: 14-20-6713Tkcqjkvsn encounterSchayo Cerda PTNOMS CI PTComment on above:re: PT (Contacted re: last PT she wanted to fu w/ Dr. Childress before continuing on. She stated per Fior no recommendation of anymore PT at this time; sx is needed due to yoca-xr-rqfo.)Start: 05-20-2024 End: 93-64-4094issdybqykkMvwe D Woods RT(R)RadiologyComment on above:Radiology XRStart: 05-20-2024 End: 70-77-9668Itwywio encounter procedureSarai Bean RT(R)RadiologyComment on above:Primary osteoarthritis of left knee (Primary Dx); Arthritis of left knee; Left knee pain, unspecified chronicityStart: 05-20-2024 End: 47-34-4636Idqkmzfupd hospital visit by physicianHelen Dillon 1 Work Phone: RadiologyComment on above:Left knee pain, unspecified chronicity [M25.562]Start: 05-19-2024 End: 58-78-6963Qzajze outpatient visit 25 minutesDenrebecca Treviño DO Work Phone: [facility] - Family MedicineComment on above:Acute deep vein thrombosis (DVT) of brachial vein of left upper extremity (CMS-HCC) (Primary Dx); Localized osteoarthritis of right knee; Essential hypertension; Obesity, morbid (CMS-HCC); Need for immunization against influenzaStart: 05-19-2024 End: 47-83-0367nngfggimabXTOVXXMethod[facility] Ambulatory PPGStart: 05-18-2024 End: 43-50-0691Vyynuyq encounter procedureEmrashard Murphy DO Work Phone: RheumatologyComment on above:Systemic lupus erythematosus, unspecified SLE type, unspecified organ involvement status (HCC) (Primary Dx)Start: 05-16-2024 End: 26-40-3583fvqaigecnqYZGCUFDHolmes County Joel Pomerene Memorial Hospitaltart: 05-16-2024 End: 22-36-0796Tyjraslcjr hospital visit by physicianNorth[facility] Zxr1429 Cr Nonv1 Bp/HolterUH Loring HospitalComment on above:ArrivedStart: 05-16-2024 End: 05-60-1915Sftlermon encounterSammantha Cerda PTNOMS CI PTComment on above:re: PT's this week (She had called and lm noting this week she is busy w/ scheduled doctor appts and the 2 PT's scheduled she is unable to attend. She said Thursday she has a fu w/ referring provider and noted she'd contact after that w/ recommendation.)Start: 05-16-2024 End: 40-15-3271peksjjkrtnECZKCPSHolmes County Joel Pomerene Memorial Hospitaltart: 05-16-2024 End: 61-48-0523Knpaui outpatient visit 25 [facility] Vincent PIPE PROCESSOR-JEWELRY MAKER Work Phone: [facility] CenterComment on above: Paroxysmal atrial fibrillation (Multi) (Primary Dx)Start: 05-12-2024 End: 55-49-6553Bpwjyx flowsAmberjoseph Kendall PTANOMS CI PTStart: 05-12-2024 End: 29-58-1463Audwop flowsheetTatojoseph Kendall PTANOMS CI PTStart: 05-12-2024 End: 54-64-5051ngdmizyizoKzxznjb Lawrence PTANOMS CI PTComment on above: Unilateral primary osteoarthritis, left knee (Primary Dx)Start: 05-09-2024 End: 57-98-0816Vmsyhk flowsheetSammantha Cerda PTNOMS CI PTStart: 05-09-2024 End: 37-01-5128Bpwqxy flowsheetSammantha Cerda PTNOMS CI PTStart: 05-09-2024 End: 10-31-8433euminyllueCKSVFTBKX SCHNEIDERNOMS HealthcareComment on above: Unilateral primary osteoarthritis, left knee (Primary Dx)Start: 04-21-2024 End: 40-74-0370GivsnnJwdora Thomas [facility] Medical CenterMedimi Physicians Internal Medicine - Family MedicineStart: 04-19-2024 End: 09-52-4217Jwwjuxpwz encounterEmrashard Murphy DO Work Phone: RheumatologyStart: 04-19-2024 End: 07-67-0431tzovgrhjzcDqdn Chair Kenton Sawyer Work Phone: InfusionComment on above:Systemic lupus erythematosus, unspecified SLE type, unspecified organ involvement status (HCC) (Primary Dx) Start: 04-16-2024 End: 12-31-4223Cansisrri encounterCristaddie Berumen [facility] Comment on above:ResultsStart: 04-14-2024 End: 53-54-5581ispffqotjpJsq ProviderInfusionComment on above:Infusion Thursday04/19/24Start: 04-14-2024 End: 19-21-4986B-mail encounter from [facility] ProviderInfusionStart: 04-07-2024 End: 93-23-9337Yldrxrikk for other preprocedural examinationLima Memorial Hospitaltart: 04-07-2024 End: 58-71-5708Hgywzkqysy and management of inpatientSt. Rita's Hospitaltart: 04-07-2024 End: 40-36-2320Fuoarec encounter statusJuan Chino MD Work Phone: [facility] Work Phone: Start: 04-07-2024 End: 97-39-1943Omdybpthlp hospital visit by physicianJuan Chino MD Work Phone: [facility] MatherComment on above: Paroxysmal atrial fibrillation (Multi); Epistaxis; Anemia, unspecified type; Preop testingStart: 03-30-2024 End: 42-93-9434Jlmrrc outpatient visit 25 minutesWojciech Treviño DO Work Phone: [facility] - Family MedicineComment on above:Essential hypertension (Primary Dx); Localized osteoarthritis of left knee; Varicose veins of left upper extremity; Localized swelling, mass and lump, head; Mixed hyperlipidemia; Acquired hypothyroidism; Hyperparathyroidism ([facility]-HCC); Obesity, morbid ([facility]-HCC); Encounter for screening mammogram for malignant neoplasm of breast; AnxietyStart: 03-30-2024 End: 63-04-3154KhhadiOqao Cooper CMAUC Medical Center Physicians Internal Medicine - Family MedicineStart: 03-28-2024 End: 43-89-1019Pnwqbznmei hospital visit by physician [facility] LoraRadiologyComment on above: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]Start: 66-55-7040Getogenls for other preprocedural examinationJUAN LOVEMartins Ferry Hospitaltart: 03-21-2024 End: 44-46-6029Ncjkajg encounter statusJuan Chino MD Work Phone: [facility] Work Phone: Start: 03-21-2024 End: 58-15-1202AsasbpVnqk Cooper CMAUC Medical Center Physicians Internal Medicine - Family MedicineStart: 03-19-2024 End: 22-38-8114PqkzpcBdjsbe G Furlong DO Work Phone: [facility] Physicians Internal Medicine - Family MedicineStart: 40-42-3440fgvloyyusxFrhsgjrnHumera Ann PA-C Work Phone: bone CenterComment on above:Knee XrayStart: 03-17-2024 E-mail encounter from Kizzy Ann PA-C Work Phone: bone CenterStart: 10-49-3288ayywhbizxvXfyxr Susan Murphy DO Work Phone: RheumatologyComment on above:Muscle painStart: 39-00-7219H-mail encounter from caregiverCcMcLeod Health Dillon CStart: 64-08-0318Ojzhfwt encounter procedureCcf [facility] CComment on above:Appointment Rescheduled to 06/10/24Start: 03-15-2024 End: 28-86-5078Zkmffvzfbf hospital visit by Goldie Main Z73SeevbecgoAscdkxv on above:Osteopenia of multiple sites [M85.89]Start: 03-15-2024 End: 23-38-7780Bytuzrj encounter Taylor Ann PA-C Work Phone: [facility] CenterComment on above:Osteopenia of multiple sites (Primary Dx); S/P parathyroidectomy; alf (current) use of 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; Acute pain of left kneeStart: 03-15-2024 End: 79-18-0711Jpcrqtksui hospital visit by physicianJuanito Junior Main A[address] 2 RadiologyComment on above:Osteopenia, unspecified location [M85.80]Start: 36-84-7499tjqzncoiysPhlieh Leone MD Work Phone: GastroenterologyComment on above:MedicationRefill RequestStart: 02-23-2024 End: 34-75-7077fykpdxzysvIftg Chair [address] Work Phone: InfusionComment on above:Systemic lupus erythematosus, unspecified SLE type, unspecified organ involvement status (HCC) (Primary Dx) Start: 31-18-6956lhwxjjfhjaKuo ProviderInfusionComment on above:Infusion for 02/22 Start: 52-40-3059I-mail encounter from caregiverf ProviderInfusionStart: 19-94-1945DpshldGlsfdq Leone MD Work Phone: GastroenterologyComment on above:Refill RequestStart: 02-16-2024 End: 62-41-6119Fmbdflvhc encounterWojciech Treviño DO Work Phone: [facility] - Family MedicineStart: 02-16-2024 End: 54-62-1085acdifuninlIMYAMR G [facility] Ambulatory PPGStart: 02-16-2024 End: 32-05-0600Kcyhhya encounter procedureWojciech Treviño DO Work Phone: ProChillic[facility] Va Medical Centerca Physicians Internal Medicine - Family MedicineComment on above:Medicare annual wellness visit, subsequent (Primary Dx); Screening for depressionStart: 02-15-2024 End: 48-56-6074kdvxznnrwiZTIODPSOhioHealth Shelby Hospitaltart: 02-15-2024 End: 88-79-6405Wjeurr outpatient visit 25 minutesChap[facility] Vincent PIPE PROCESSOR-JEWELRY MAKER Work Phone: uh Loring HospitalComment on above: Paroxysmal atrial fibrillation (Multi) (Primary Dx)Start: 87-44-7619WftumrPmvadi Leone MD Work Phone: GastroenterologyComment on above:Refill Request (protonix)Start: 01-05-2024 End: 13-43-8769bbgsquivplZLAOUZSN S ARRUDACleveland Clinic Akron Generaltart: 01-05-2024 End: 16-05-6425Cvjkydsbjx hospital visit by Reilly Chino MD Work Phone: uh [facility] MatherComment on above: Persistent atrial fibrillation (Multi); Atypical atrial flutter (Multi)Start: 01-04-2024 End: 69-88-2685ilvmbpqszoUBKCVNHolzer Health Systemtart: 12-29-2023 End: 28-16-7236Cndfnhr encounter procedureRadu Salaazr MD Work Phone: Kidnno MedicineComment on above:Stage 3a chronic kidney disease (HCC) (Primary Dx); Membranous glomerulonephritis; Lupus nephritis, ISN/RPS class V (HCC); Screening for genitourinary condition; Hypertension, unspecified typeRefill RequestStart: 49-65-9787Thtkqr OnlyEmily A Radames DO Work Phone: RheumatologyStart: 41-77-5223Drclbszew encounterNurse Rena [facility] D[facility] Work Phone: InfusionStart: 12-25-2023 End: 72-40-3884nhjbeykmfxIpjsw A Radames DO Work Phone: RheumatologyComment on above:Systemic lupus erythematosus, unspecified SLE type, unspecified organ involvement status (HCC) (Primary Dx)Start: 12-25-2023 End: 22-06-0193Mvhjltcbvqyh consultation with patientNadege Murphy DO Work Phone: RheumatologyStart: 12-24-2023 End: 88-09-1763Dojgyv OnlyNadege Murphy DO Work Phone: RheumatologyComment on above:Systemic lupus erythematosus, unspecified SLE type, unspecified organ involvement status (HCC) (Primary Dx)Start: 01-01-7844mfhyijulvvFzz ProviderInfusionComment on above: Infusion for 12/23Start: 83-83-8767X-mail encounter from caregiverSaint Joseph London Provider InfusionStart: 12-22-2023 End: 29-90-6503Kxzrqnn encounter procedureDione Frances MD Work Phone: GastroenterologyComment on above:Diarrhea, unspecified type (Primary Dx); Other ulcerative colitis without complication (HCC)Start: 42-46-7799Zbrfze Only Nadege Murphy DO Work Phone: RheumatologyComment on above:Rheumatology labsStart: 59-90-7048SzcqheOscmvm Leone MD Work Phone: GastroenterologyComment on above:Refill RequestRefill Start: 12-14-2023 End: 87-92-8898SmsfmrWhpxft G Furlong DO Work Phone: [facility] - Family MedicineStart: 12-08-2023 End: 85-74-3588Dmbtqkf encounter procedureBeverly Franco DPM Work Phone: PodiatryComment on above:Pre-ulcerative calluses (Primary Dx); Osteoarthritis of midtarsal joint of left foot; Hammertoe, bilateral; Hav (hallux abducto valgus), unspecified laterality; Pain due to onychomycosis of toenails of both feetStart: 11-26-2023 End: 69-08-4451Qekrdpdhd to same day surgery centerDO Wojciech Treviño Work Phone: [facility]-Procedure Outpatient Work Phone: Start: 11-26-2023 End: 84-55-9118zqtrcfwvzdGA Wojciech Treviño Work Phone: [facility] Work Phone: Start: 11-16-2023 End: 98-36-0202lbgcbtyxzmCCLPLXRESelect Medical OhioHealth Rehabilitation Hospitaltart: 11-16-2023 End: 87-95-2800Zuwtsd outpatient new 45 Farida Chino MD Work Phone: [facility] CenterComment on above: Atypical atrial flutter (CMS/HCC) (Primary Dx); Paroxysmal atrial fibrillation (CMS/HCC); At medium risk for stroke; Post-menopausal bleeding; EpistaxisStart: 11-09-2023 End: 93-41-1657Hyegcuvepmlh / ancillary services managementKalyn Anthony [facility]more Medical CenterComment on above:Paroxysmal atrial fibrillation (CMS/HCC)Start: 10-29-2023 End: 70-06-8061Wixtht outpatient visit 25 minutesYuriy Conway MD Work Phone: [facility] HospitalComment on above:Paroxysmal atrial fibrillation (CMS/HCC) (Primary Dx); High risk medication use; Essential hypertension; emt intermediate current use of anticoagulant therapy; Obstructive sleep apnea; BMI 40.0-44.9, adult (CMS/HCC); Never smoked any substance; Systemic lupus erythematosus, unspecified SLE type, unspecified organ involvement status (CMS/HCC)Start: 02-97-3464Cakrsjfgh encounterEmrashard Murphy DO Work Phone: RheumatologyComment on above:ResultsStart: 10-23-2023 End: 51-97-5876Nteynguixk hospital visit by physician [facility] (Istat/1.5) Work Phone: [facility] Radiology MRIComment on above:Pancreatic cyst [K86.2]Start: 10-13-2023 End: 94-71-3593Ofwgjoi encounter procedureAnnmarie Marissa PA-C Work Phone: Bonl CenterComment on above:Osteopenia, unspecified location (Primary Dx); S/P parathyroidectomy; alf (current) use of 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; Vitamin D deficiency diseaseStart: 10-09-2023 End: 91-10-2673Wmzdjjn encounter procedureBeverly Franco DPM Work Phone: PodiatryComment on above:Pre-ulcerative calluses (Primary Dx); Osteoarthritis of midtarsal joint of left foot; Osteoarthritis of midtarsal joint of right footStart: 10-01-2023 End: 72-87-1661ecziejqjtdKnuo Chair [address] Work Phone: InfusionComment on above:Systemic lupus erythematosus, unspecified SLE type, unspecified organ involvement status (HCC) (Primary Dx) Start: 13-47-6058Rfrnuatyi encounterToms Arnulfo CHILDERS Work Phone: General SurgeryComment on above:OrdersStart: 70-95-5820Nnseca OnlyEmily Susan Murphy DO Work Phone: RheumatologyComment on above:Infusion for 10/01/23 Start: 64-53-9741Bqnmrb Vanessa Staley PIPE PROCESSOR-VEGETABLE SORTER Work Phone: [facility] - Family MedicineStart: 76-48-2324GmmkevYxri Rose Kuns PIPE PROCESSOR-VEGETABLE SORTER Work Phone: [facility] - Family MedicineStart: 09-21-2023 End: 22-96-1736Icekvnxjf to same day surgery centerDO Wojciech Treviño Work Phone: [facility]-Electrodiagnostics Work Phone: Start: 09-21-2023 End: 95-87-0900xfmivlhhqvSK Wojciech Idalia Work Phone: [facility] Work Phone: Start: 09-17-2023 End: 09-14-8938Fxambc outpatient visit 40 minutesYuriy Conway MD Work Phone: [facility]ly [facility] Hospital Of Wake CountyComment on above:Atypical atrial flutter (CMS/HCC) (Primary Dx); Paroxysmal atrial fibrillation (CMS/HCC); Essential hypertension; Obstructive sleep apnea; Never smoked any substance; Other forms of systemic lupus erythematosus, unspecified organ involvement status (CMS/HCC); Morbid obesity (CMS/HCC); High risk medication use; DyslipidemiaStart: 04-69-4844LygtpyUuonqc G Furlong DO Work Phone: [facility] - Family MedicineStart: 09-01-2023 End: 85-75-0382Sjvjqy outpatient visit 15 minutesCha Miller Luís ALVAREZ-VEGETABLE SORTER Work Phone: [facility] - Family MedicineComment on above:Viral upper respiratory tract infection (Primary Dx) Start: 08-27-2023 End: 75-82-0152temzhhvyfhOHRAW FAZIONot AvailableStart: 62-44-6787Vwvfbr Only Wojciech Santanacynthiamolly DO Work Phone: [facility] - Family MedicineStart: 08-05-2023 End: 24-30-7905bkrksxixxgMEFJN FAZIONot AvailableStart: 55-34-5680qusjrnpkwb Delfino Jones DPM Work Phone: OrthopaedicsStart: 14-41-7055Oqgmjjqzm encounter Delfino Jones DPM Work Phone: OrthopaedicsComment on above:Surgical FollowupStart: 05-95-3680Mvrggkxor encounterDelfino Jones DPZach Work Phone: OrthopaedicsComment on above:Surgical FollowupStart: 07-02-2023 End: 71-72-1820Vrecab OnlyBeverly Franco DPM Work Phone: PodiatryComment on above:Pain in left foot (Primary Dx)Ulcer of toe of right foot, limited to breakdown of skin (HCC) (Primary Dx); Pre-ulcerative calluses; Osteoarthritis of midtarsal joint of left foot; Osteoarthritis of midtarsal joint of right footStart: 07-01-2023 End: 40-92-2745efgjcopwjzVzim Chair [address] Work Phone: InfusionComment on above:Systemic lupus erythematosus, unspecified SLE type, unspecified organ involvement status (HCC) (Primary Dx); High risk medication useStart: 91-37-3903Iysyil OnlyEmily A Radames DO Work Phone: RheumatologyStart: 68-01-3327DfwaojWxonqx Leone MD Work Phone: GastroenterologyComment on above:Refill RequestStart: 46-85-7951Ozpexftkf encounterHeather Gruber PA-C Work Phone: [facility] Rheum InstituteComment on above:Medication QuestionStart: 36-67-5264jepgjrhueeRgqme A Radames DO Work Phone: RheumatologyComment on above:Missed appt and test Start: 04-65-8756Rqevim SebastianMaryajoey Staley CNP Work Phone: Hematology/OncologyComment on above:Mixed hyperlipidemia (Primary Dx); HypomagnesemiaStart: 74-00-9630MijbqaGyjirn Leone MD Work Phone: GastroenterologyComment on above:Refill RequestStart: 04-15-2023 End: 60-40-8264Fmzdgaa encounter Vikram Frances MD Work Phone: GastroenterologyComment on above:Other ulcerative colitis without complication (HCC) (Primary Dx); Gastroesophageal reflux disease without esophagitisStart: 04-10-2023 End: 45-90-3125ykmwuoctykNtwaj A Radames DO Work Phone: RheumatologyComment on above:Systemic lupus erythematosus, unspecified SLE type, unspecified organ involvement status (HCC) (Primary Dx); Thin blood (HCC)Start: 04-10-2023 End: 23-52-2096Chrrkapwygzv consultation with Saroj Murphy DO Work Phone: [facility]INStart: 41-69-5862Hgqynxsnc encounterDione Frances MD Work Phone: GastroenterologyComment on above:Results (Colon)Start: 04-02-2023 End: 27-12-4302Kqjxkmimws hospital visit by physicianDione Frances MD Work Phone: Ambulatory SurgeryComment on above:IBD (inflammatory bowel disease) [K52.9]Start: 03-19-2023 End: 54-81-1823qudybujypgFsft Chair [address] D[address] Work Phone: InfusionComment on above:Systemic lupus erythematosus, unspecified SLE type, unspecified organ involvement status (HCC) (Primary Dx) Start: 25-97-5539jkcahanjyaLjt ProviderInfusionComment on above:Infusion for 03/19 Start: 53-98-8002J-mail encounter from caregiverCcf ProviderCCF EDI FHCStart: 74-69-7248LnsugfPrhwsj Leone MD Work Phone: GastroenterologyComment on above:Refill RequestStart: 03-12-2023 End: 41-55-8448Qjuhvlt encounter procedureBeverly Franco DPM Work Phone: PodiatryComment on above:Ulcer of toe of right foot, limited to breakdown of skin (HCC) (Primary Dx); Pre-ulcerative callusesStart: 30-65-3952Uuzfehoed encounterDione Frances MD Work Phone: GastroenterologyComment on above:AppointmentStart: 02-47-6621XnnjgiVkul Hajj Ali MD Work Phone: RheumatologyComment on above:Refill RequestStart: 81-82-2035Gifegwohm encounterDione Frances MD Work Phone: GastroenterologyComment on above:Results (labs)Start: 02-12-2023 End: 85-25-1828Rorggvh encounter procedureBeverly Franco DPM Work Phone: PodiatryComment on above:Ulcer of toe of right foot, limited to breakdown of skin (HCC) (Primary Dx); Pre-ulcerative calluses; Cellulitis of second toe of right footStart: 62-61-2434XcetrfPgutk Khalil MD Work Phone: CardiologyComment on above:Refill Request; Follow Up Start: 34-63-8405Rywvmqpev encounterMonica Booker MD Work Phone: endocrine SurgeryComment on above:ResultsStart: 06-93-9883Rjgkfn OnlyEmily A Radames DO Work Phone: RheumatologyStart: 02-04-2023 End: 31-32-5797Nnupyef encounter procedureEmily A Radames DO Work Phone: RheumatologyComment on above:Systemic lupus erythematosus, unspecified SLE type, unspecified organ involvement status (HCC) (Primary Dx); Need for vaccination against Streptococcus pneumoniaeStart: 01-22-2023 End: 20-52-4105Jclyljz encounter procedureBeverly Franco DPM Work Phone: PodiatryComment on above:Ulcer of toe of right foot, limited to breakdown of skin (HCC) (Primary Dx); Pre-ulcerative callusesStart: 95-99-7938PlcclsBgorup Leone MD Work Phone: GastroenterologyComment on above:Refill Request (colestipol)Start: 12-15-2022 End: 85-60-9121vgqecjbnthAito Chair Wilfredo Sawyer Work Phone: InfusionComment on above:Systemic lupus erythematosus, unspecified SLE type, unspecified organ involvement status (HCC) (Primary Dx); High risk medication useStart: 67-93-0163Hdppjut encounter procedureDione Frances MD Work Phone: GastroenterologyComment on above:Office visitStart: 79-22-9752brydphmeqjMuhc Hajj Ali MD Work Phone: InfusionComment on above:Infusion ConfirmationStart: 67-73-6476F-mail encounter from Nyla Alicea MD Work Phone: [facility] FHCStart: 49-25-9352PehcvaIrzkyg Leone MD Work Phone: GastroenterologyComment on above:Refill Request (iron) Start: 33-10-6333NfhcqhJesdij Leone MD Work Phone: GastroenterologyComment on above:Refill RequestStart: 06-48-3130htdmqjcwtxTapyfgukfzt W Herbert DPM Work Phone: OrthopaedicsStart: 96-45-6441Mrjwrxqfm encounter Delfino Jones DPM Work Phone: OrthopaedicsComment on above:Surgical FollowupStart: 97-43-3738djmcjhdbpaJqefac Leone MD Work Phone: GastroenterologyComment on above:Diarrhea and stomach acidStart: 57-56-8168xeavfimtlaJwuwlo Leone MD Work Phone: GastroenterologyComment on above:ColestipoleStart: 29-41-8427Mfbgcbvjl encounterChristopher Oziel Jones DPM Work Phone: OrthopaedicsComment on above:Surgical FollowupStart: 10-16-2022 End: 97-52-9550Ujepzl outpatient visit 15 minutesObdulia Ann PA-C Work Phone: Bonf CenterComment on above:Osteopenia, unspecified location (Primary Dx); S/P parathyroidectomy (HCC); alf (current) use of 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Start: 51-18-7857igedagbybbFcxowi Leone MD Work Phone: GastroenterologyComment on above:ColestipolStart: 51-62-7996uweljryairKetnhd Leone MD Work Phone: GastroenterologyComment on above:CdifStart: 09-28-2022 End: 58-23-1306muanuglsvwPX WOJCIECH Mcghee FURLONGFacility:T9Bnrei: 60-06-6057Vk RenewalDenrebecca Mcghee Furlong Work Phone: [phone]-MzfsrKittson Memorial Hospitalusky 250 DO Work Phone: Start: 73-49-0287BuaqmbBforsy Leone MD Work Phone: GastroenterologyComment on above:Refill Request (Lialda)Start: 39-27-9311RgbmdwYsjljk Battle APRN.JEWELRY MAKER Work Phone: CardiologyComment on above:Refill RequestStart: 67-60-2818Piqvg UpdateDnicolasa Mcghee Furlong Work Phone: [phone]-NnjwfRiverView Health Clinicy 250 DO Work Phone: Start: 63-63-2457ajrgddmjfkSbAjay Yan Vvebam5e Facility:[id number]: 12-89-6861Dpsaaui encounter Logan Santanalong Work Phone: [phone]-EuzchNew Prague Hospital [address] [place] Work Phone: Start: 48-08-8740Xvesdwwab encounterMonica Booker MD Work Phone: endocrine SurgeryComment on above:ResultsStart: 09-15-2022 End: 33-87-8067ofdijbfhwwHmfj Chair [address] Digna Work Phone: InfusionComment on above:Systemic lupus erythematosus, unspecified SLE type, unspecified organ involvement status (HCC) (Primary Dx) Start: 15-19-2172Kfsvzjdpx encounterEvelin Alicea MD Work Phone: InfusionComment on [...] or on any recent antibiotics. ) Start: 46-37-9956Jo RenewalWojciech Treviño Work Phone: [phone]-WefooEly-[facility] 600 DO Work Phone: Start: 89-46-9745VttcprVsrckc Leone MD Work Phone: GastroenterologyComment on above:Refill RequestStart: 99-13-7008Bjdvqqnrb encounterMonica Booker MD Work Phone: Endocrine SurgeryComment on above:Patient UpdateStart: 59-71-0892Nbvqytnvn for preprocedural laboratory examinationDR DOCTOR MAHARAJOhioHealth HospitalStart: 77-23-8009Brijmvsvq encounterMonica Booker MD Work Phone: Endocrine SurgeryComment on above:Results (Covid) Start: 08-25-2022 End: 29-81-1691Cscbyx OnlyMonica Booker MD Work Phone: [phone] SurgeryComment on above:Hyperparathyroidism (HCC) (Primary Dx)Start: 08-25-2022 End: 24-22-1290Pfzvrymge for preprocedural laboratory examinationDR [facility] [place] Facility:[id number]: 85-13-5216Pzmhqllvd encounterMonica Booker MD Work Phone: [phone] SurgeryComment on above:Patient Update Preparations For SurgeryStart: 44-71-9663kxhxlozeqqUyAjay Sotom Facility:[id number]: 91-05-6545Bzirjnbcv encounterMonica Booker MD Work Phone: Endocrine SurgeryComment on above:Fountain Roller Assembler - OtherStart: 22-38-3661Rshxbsrio for other preprocedural examinationDr. Yuriy SotoAspirus Medford Hospitaltart: 19-95-7240nbawzcmvyzCa. Hassan Ibrahi0m Facility:[id number]: 53-96-0137Vwkclq consultation new/estab patient 80 minDnicolasa Lobatong Work Phone: [phone]-MsrciNew Prague Hospital 250 DO Work Phone: Start: 81-39-1764Neykft outpatient new 60 minutes Wojciech Treviño Work Phone: [facility] Work Phone: Start: 19-18-2445Rperhzd encounter procedureWojciech Treviño Work Phone: [phone]-FotojMonticello Hospital 250 DO Work Phone: Start: 07-31-2022 End: 85-75-6012Kvumxyrgn to [facility] 2 Work Phone: CCCLARKE COUNTY HOSPITALtart: 07-31-2022 End: 86-28-9980albpdioyogMagn [place] 2 Work Phone: pre AnesthesiaComment on above:Pre-op evaluation (Primary Dx); Ascending aortic aneurysm, unspecified whether ruptured; Obesity, Class II, BMI 35-39.9; Mixed hyperlipidemia; Acquired hypothyroidism; Chronic diastolic congestive heart failure (HCC); Obstructive sleep apnea syndrome; Systemic lupus erythematosus, unspecified SLE type, unspecified organ involvement status (HCC); Fibromyalgia; Essential hypertension; Paroxysmal atrial fibrillation (HCC); Obesity, Class III, BMI >= 40Start: 07-31-2022 End: 57-52-2831Grpemnayipbzc examination [facility] Work Phone: pre AnesthesiaStart: 42-35-5474Lszwhhqqf encounter Dione Frances MD Work Phone: GastroenterologyComment on above:OrdersStart: 77-08-6390lbbexnjjdwNgwroz Peechakara MD Work Phone: EndocrinologyComment on above:Zoom appt.Start: 07-07-2022 End: 35-65-0574Taerll Eliud Booker MD Work Phone: endocrine SurgeryComment on above:Primary hyperparathyroidism (HCC) (Primary Dx)Hyperparathyroidism (HCC) [E21.3] Hypercalcemia; Hyperparathyroid (HCC)Start: 09-45-6487Lskfjwleón Booker MD Work Phone: endocrine SurgeryComment on above:Hyperparathyroidism (HCC) (Primary Dx)Consult (Face Sheet)Start: 36-82-6795vydjcuazgjYbmnCandace Underwood MD Work Phone: Endocrinology BMIComment on above:Pancreas checkStart: 44-30-6335txgrctjcnkLqqo Laney Alicea MD Work Phone: RheumatologyComment on above:Blood work resultsStart: 06-12-2022 End: 52-04-7119avrkboeniaRtiy Chair 6 Main Work Phone: RheumatologyComment on above:Systemic lupus erythematosus, unspecified SLE type, unspecified organ involvement status (HCC) (Primary Dx); Hyperparathyroid (HCC)Start: 06-11-2022 End: 27-09-2721Qdnbqth encounter Gray Bejarano MD Work Phone: EndocrinologyComment on above:Hypercalcemia; Hyperparathyroid (HCC)Start: 65-53-6679yexbozvdjgWxexCandace Underwood MD Work Phone: Endocrinology BMIComment on above:MRIStart: 05-19-2022 ambulatoryChristopher Oziel Jones DPM Work Phone: OrthopaedicsStart: 25-33-4692Qgakxlakt encounter Delfino Jones DPM Work Phone: OrthopaedicsComment on above:Surgical FollowupStart: 51-74-6668OtkbupTogdfb Leone MD Work Phone: GastroenterologyComment on above:Refill RequestRefill Start: 05-12-2022 End: 44-27-9503naupspgqdmBnqunbxh Rosa PA-C Work Phone: Bonl CenterComment on above:Osteopenia, unspecified location (Primary Dx); Balance problem; Hypercalcemia; Hyperparathyroid (HCC)Start: 05-12-2022 End: 37-73-7308Abthhzqygypc consultation with patientObdulia Peña ISELA Work Phone: [facility]Start: 86-45-0876NV Get Medical AdviceDione Frances MD Work Phone: GastroenterologyComment on above:RefillRefill Request Start: 04-18-2022 End: 74-89-4025Yjntrlc encounter procedureObdulia Mraiana WEISS Work Phone: bone CenterComment on above:Osteopenia, unspecified location (Primary Dx); Vitamin D deficiency disease; Serum calcium elevated; Balance problemStart: 59-37-1082Iswxlh Ming Ramos MD Work Phone: CardiologyComment on above:Hypertrophic obstructive cardiomyopathy (HCC) (Primary Dx)Start: 40-71-1245ngbmatoxvoRkag Hajj Ali MD Work Phone: RheumatologyComment on above:MedsStart: 03-17-2022 Sakshi Alicea MD Work Phone: RheumatologyComment on above:Calcium levelStart: 18-13-0750Z-mail encounter from Nyla Alicea MD Work Phone: [facility]INStart: 03-13-2022 End: 05-05-4962Drzbpan encounter procedureBone Density ProdigyCCF [facility] MAINStart: 03-13-2022 End: 04-08-3062Tphggvo evaluation of patient and reportNurse Rena Main Work Phone: RheumatologyStart: 03-13-2022 End: 97-66-4632tusxcepfhlJykz Chair 5 Main Work Phone: RheumatologyComment on above:Systemic lupus erythematosus, unspecified SLE type, unspecified organ involvement status (HCC) (Primary Dx); Membranous lupus nephritis syndrome (HCC); High risk medication use; Encounter for prophylactic measures, unspecifiedRadiology BMDStart: 03-13-2022 End: 06-26-8134Lqgkcah encounter procedureEvelin Alicea MD Work Phone: RheumatologyComment on above:Membranous lupus nephritis syndrome (HCC) (Primary Dx); High risk medication use; Systemic lupus erythematosus, unspecified SLE type, unspecified organ involvement status (HCC); Asymptomatic postmenopausal statusStart: 55-34-5484inoiegudaxZml Provider RheumatologyComment on above:Covid testStart: 40-22-1510I-mail encounter from [facility] ProviderCCF [facility]INStart: 87-92-3050Hhuwmirvs encounterEvelin Alicea MD Work Phone: RheumatologyComment on above:Orders (Evusheld)Start: 40-30-0941Aprnwsrpe encounterDione Frances MD Work Phone: GastroenterologyComment on above:Results; OrdersStart: 18-79-6161YfpyxxIcde Hajj Ali MD Work Phone: RheumatologyComment on above:Refill RequestStart: 70-93-2690Bnglznbts encounterDione Frances MD Work Phone: GastroenterologyComment on above:ResultsStart: 26-29-4859bbrkrzvvfsBfndks Leone MD Work Phone: GastroenterologyComment on above:Return callStart: 10-21-7503awxurjucifCuaqnp Leone MD Work Phone: GastroenterologyComment on above:Er visitPrescription Start: 02-13-2022 End: 78-68-4145qdozdabyhaAX STEPHEN G REINECKFacility:I0Tpvwp: 02-13-2022 End: 98-82-3670Zzlzjqqrc department patient visitDO Wojciech Treviño Work Phone: [facility]-Emergency RoomStart: 02-07-2022 End: 17-25-7887Nqtwfgglvo and management of inpatientDO Wojciech Treviño Work Phone: [facility]-[address] [place] Med SurgStart: 38-86-4682wfegxapxgcEecnnf Leone MD Work Phone: GastroenterologyComment on above:QuestionsStart: 77-19-6429nappadocneKeoikb Leone MD Work Phone: [facility] MCStart: 34-15-3781Cxeqeok encounter procedureDione Frances MD Work Phone: GastroenterologyComment on above:Appointment KIM Start: 78-30-2471MyudkqKlr Chung MD Work Phone: CardiologyComment on above:Refill RequestStart: 37-98-2085PB Get Medical AdviceDione Frances MD Work Phone: GastroenterologyComment on above:Med refillStart: 67-58-3438NY Get Medical AdviceDione Frances MD Work Phone: GastroenterologyComment on above:RefillStart: 12-09-2021 End: 67-60-3683Aaygywv encounter Landon RUIZ Work Phone: RheumatologyComment on above:Systemic lupus erythematosus, unspecified SLE type, unspecified organ involvement status (HCC) (Primary Dx); High risk medication use; Long-term use of PlaquenilStart: 12-09-2021 End: 77-69-0619buezdcresmJfof Chair 4 Main Work Phone: RheumatologyComment on above:Systemic lupus erythematosus, unspecified SLE type, unspecified organ involvement status (HCC) (Primary Dx); High risk medication useStart: 51-33-6014ZZ Get Medical AdviceDione Frances MD Work Phone: GastroenterologyComment on above:RefillStart: 09-12-2021 End: 05-91-7586Vjcetcfkwz hospital visit by Shilpi Frances MD Work Phone: Ambulatory SurgeryComment on above:Diarrhea, unspecified type [R19.7]Start: 01-04-2021 End: 41-90-6535Oomnhbscbj hospital visit by physicianHelen Dillon 1 Work Phone: RadiologyComment on above:Post-op pain [G89.18]Start: 11-29-2020 End: 71-76-2375Udzmaheemi hospital visit by physicianHelen Dillon 1 Work Phone: RadiologyComment on above:Pain in right hip [M25.551] Start: 09-03-2020 End: 67-32-8831Xxskjmnxgf hospital visit by physician Pending [facility] To [facility] LoraRadiologyComment on above:Calculus of gallbladder without cholecystitis without obstruction [K80.20]Start: 04-26-2020 End: 14-47-8040Rlfwqgacez hospital visit by physicianHelen Dillon 1 Work Phone: RadiologyComment on above:Pain [R52]Start: 10-12-2018 Patient encounter procedureHASSAN IBRALANIMFacility:[id number]: 62-62-3266Myjeola encounter procedureHASSYASSINE CONWAYFacility:1532Preoperative stateDbipinis G Furng Work Phone: [phone]-YjqyzMonticello Hospital 250 DO Work Phone: Procedures DateProcedureProcedure DetailPerforming ClinicianStart: 90-04-7675Yhtcavyigtqkjf aspir&/inj major jt/bursa w/o usAlshilpa Childress MD Work Phone: Start: 08-99-8761Xx lower extremity w/o contrast Jannet Hall MD Work Phone: Start: 99-64-8093Ndqyh foot complete minimum 3 views Beverly Franco DPM Work Phone: Start: 19-87-6807Ddtbo foot complete minimum 3 views Beverly Franco DPM Work Phone: Start: 56-90-5939Uukml depression screening assessment Wojciech Furlong DO Work Phone: Start: 34-29-9543Lja routine ecg w/least 12 lds w/i&r Yuriy Conway MD Work Phone: Start: 96-14-9740Irtdkdaznvielo aspir&/inj major jt/bursa w/o usDennis G Maxlong DO Work Phone: Start: 53-92-1871Lvjlm depression screening assessment Wojciech Furlong DO Work Phone: Start: 96-54-3991Tikmywfyeiifdkf echocardiography Wojciech Santanalong DO Work Phone: Start: 44-77-7464PM of chestDennis Maxlong DO Work Phone: Start: 73-67-2056Tsjxh chest X-rayDenrebecca Lobatong DO Work Phone: Start: 89-07-3914Cnt routine ecg w/least 12 lds w/i&r Yuriy Conway MD Work Phone: Start: 38-66-8637Bresuwthd streptococcus group aDenrebecca Santanalong DO Work Phone: Start: 20-52-8405Opqmr depression screening assessment Wojciech Furlong DO Work Phone: Start: 30-65-5342Icqxa depression screening assessment Wojciech Furlong DO Work Phone: Start: 67-41-7149Toitbhzglzktis aspir&/inj major jt/bursa w/o Dre Childress MD Work Phone: Start: 03-28-4005Ijvouwaxzv examination knee 1/2 views Alfredo Norwood PA-C Work Phone: Start: 29-71-0375NvdqbzbsksaRohuhyeh Cowell CMAStart: 14-16-9765Mtasldxcfps time activatedInterface Unspecifiedprovider Work Phone: Start: 75-19-4197Xo heart contrast eval cardiac structure&morphMaurictc Chino MD Work Phone: Start: 32-25-9217Qcyzcb-up visitFollow-upDENN Taz FURLONGStart: 08-58-0974Erlyi depression screening assessmentMonica Theodore [facility] Start: 64-85-6980Fcosi 1996 panel - Serum or PlasmaRheu Digna Work Phone: Start: 27-91-3181Qfvzwrghdq exam knee complete 4/more viewsObdulia Ann PA-C Work Phone: Start: 20-41-9080Xhy bone density study axial skeleton Obdulia Ann PA-C Work Phone: Start: 48-03-5517Ytfev depression screening assessment Wojciech Treviño DO Work Phone: Start: 77-48-3249Nay routine ecg w/least 12 lds trcg only w/o i&rLindsey Lesley Kaur PIPE PROCESSOR-JEWELRY MAKER Work Phone: Start: 86-79-3803Tlmrflfvszyvsttko studyLintoño Kaur PIPE PROCESSOR-JEWELRY MAKER Work Phone: Start: 02-94-9319KTC panel - Blood by Automated count WOJCIECH LOBATONGStart: 27-16-2724Qoirg metabolic 2000 panel - Serum or Plasma WOJCIECH TREVIÑOStart: 02-62-5663GGMDLPXKVDQCMRAHG PROCEDUREMAURICIO ARRUDAStart: 30-21-5106BJC REFERRAL TO CARDIAC ELECTROPHYSIOLOGYMAHERBERTIO ARRUDAStart: 90-01-2756XQM 12-LEADMAURICIO ARRUDAStart: 24-04-5523Gxi routine ecg w/least 12 lds w/i&Susan Conway MD Work Phone: Start: 54-64-7973Asm abdomen w/o & w/contrast material Rima Esvin PIPE PROCESSOR.JEWELRY MAKER Work Phone: Start: 38-61-8180Uix routine ecg w/least 12 lds w/i&r Yuriy Conway MD Work Phone: Start: 47-52-7078Xjpdf depression screening assessment Cha Staley PIPE PROCESSOR-VEGETABLE SORTER Work Phone: Start: 76-11-5305Oolft 1996 panel - Serum or PlasmaHeather Gruber PACathi Work Phone: Start: 24-91-6090Stepo depression screening assessment Wojciech Furlong DO Work Phone: Start: 79-28-3161Kdmqwyhfpjq flx dx w/collj spec when pfrmdPmi Frances MD Work Phone: Start: 77-83-5008HserojowzfpHcowtf Leone MD Work Phone: Start: 77-46-9261OufubmbhssmRznmne Leone MD Work Phone: Start: 67-37-5127ZqlllxztyhqjslgiPxfioi G Furlong Work Phone: Start: 12-79-5444Rmurwaalico imaging w/tomographic spect & ctMonica Booker MD Work Phone: start: 97-82-2404Nfsrqyibtvorw metabolic panelSsoeas Bejarano MD Work Phone: Start: 65-97-5792Zez bone density study 1/> sites axial skelEvelin Alicea MD Work Phone: Start: 02-34-90214640 NOVEL CORONAVIRUS (COVID-19)Ccf ProviderStart: 27-85-3745Ytnwi count complete auto&auto difrntl wbcEvelin Alicea MD Work Phone: Start: 52-03-8271K-reactive proteinEvelin Alicea MD Work Phone: Start: 85-88-2190VLO of headDO Wojciech Furlong Work Phone: Start: 27-83-8210Ilbuhggi tomography angiography of abdominal and/or pelvic blood vesselDO [employer] Work Phone: Start: 17-14-1696GQ angiography of headDO [employer] Work Phone: Start: 99-12-6367YD angiography of neck vesselsDO [employer] Work Phone: Start: 73-75-4516SM angiography of thoraxDO [employer] Work Phone: Start: 88-87-6641TB of head without contrastDO [employer] Work Phone: Start: 47-47-8467GNTB Antigen (LFIA)DO [employer] Work Phone: Start: 38-95-3329Cfegm cultureDO [employer] Work Phone: Start: 78-44-7685Osnes chest X-rayDO [employer] Work Phone: Start: 68-32-3348Vvmmu count complete auto&auto difrntl wbcHannah Brezovec PA Work Phone: Start: 09-68-4165Z-reactive proteinHannah Brezovec PA Work Phone: Start: 05-11-4495Anlbu depression screening assessment Dione Frances MD Work Phone: Start: 42-39-0690IHWBOXQKQ SURGICAL PATHOLOGYDione Frances MD Work Phone: Start: 62-05-0295DYJDGXOQ PATHOLOGYDione Frances MD Work Phone: Start: 25-97-6274Vdxhfnpinrfrofqnyefofwkmdl transoral diagnosticDione Frances MD Work Phone: Start: 36-30-9392Cssmtbrmfqk flx dx w/collj spec when pfrmdPmi Frances MD Work Phone: Start: 25-80-0548FfqanxrcqvaOghoyk Leone MD Work Phone: Start: 23-93-7980Mobeu hip unilateral with pelvis 2-3 viewsJoseph Oziel Lovelace MD Work Phone: Start: 54-85-6641Uwgih hip unilateral with pelvis 2-3 viewsJoseph Oziel Lovelace MD Work Phone: Start: 35-04-6782Dr abdominal real time w/image limitedSandy Underwood MD Work Phone: Start: 91-43-0936TavkreztepzAxlhhf Ibrahim MD Work Phone: Start: 66-13-3499Wrwif shoulder complete minimum 2 viewsVikas D Hernandez DO Work Phone: Start: 76-73-3440Aaejusswkjk [Units/volume] in Serum or PlasmaYuriy Conway MD Work Phone: AppendectomyDennis G Furlong Work Phone: Excision of cystDennis G Furlong Work Phone: Operative procedure on footDennis G Furlong Work Phone: TonsillectomyDennis G Furlong Work Phone: Total replacement of hipDennis G Furlong Work Phone: Plan of Treatment DateCare ActivityDetailAuthorStart: 21-13-3090Ehutdzxka for malignant neoplasm of [facility] CenterStart: 85-89-5414Yxisvrkvd for malignant neoplasm of [facility] CenterStart: 03-30-2029 Lipid panelLipid ScreeningTriHealth McCullough-Hyde Memorial Hospitaltart: 58-84-9415Tgfdh 1996 panel - Serum or PlasmaLipid ScreeningTriHealth McCullough-Hyde Memorial Hospitaltart: 40-62-8415Xpzzj panelLipid ScreeningCleSelect Medical Specialty Hospital - Cincinnati Northtart: 13-54-0328CZNLN SCREENLIPID SCREENTriHealth McCullough-Hyde Memorial Hospitaltart: 46-92-3859Xgpjyirz ScreeningDiabetes ScreeningCleveland Clinic Start: 44-03-7603Kdqhsqtll for malignant neoplasm of colonParma Community General HospitalStart: 68-95-2275Jupfxnzp ScreeningDiabetes ScreeningTriHealth McCullough-Hyde Memorial Hospitaltart: 25-06-1087KNLDX SCREENLIPID SCREENTriHealth McCullough-Hyde Memorial Hospitaltart: 06-13-2027 Diabetes ScreeningDiabetes ScreeningTriHealth McCullough-Hyde Memorial Hospitaltart: 90-13-1242Pyxbqvwu ScreeningDiabetes ScreeningTriHealth McCullough-Hyde Memorial Hospitaltart: 08-58-5287Ugiktvox Screening Diabetes ScreeningTriHealth McCullough-Hyde Memorial Hospitaltart: 64-00-3525Tbudqqpr ScreeningDiabetes ScreeningTriHealth McCullough-Hyde Memorial Hospitaltart: 07-44-2568Eyjiwoxe ScreeningDiabetes Screening [facility] Hospitaltart: 06-10-0364Ehtwehij ScreeningDiabetes ScreeningTriHealth McCullough-Hyde Memorial Hospitaltart: 44-33-2413WYGTHPUZ SCREENDIABETES SCREENTriHealth McCullough-Hyde Memorial Hospitaltart: 61-87-3646Fptokrqh ScreeningDiabetes ScreeningTriHealth McCullough-Hyde Memorial Hospitaltart: 04-04-2026 Creatinine measurementSerum CreatinineTriHealth McCullough-Hyde Memorial Hospitaltart: 76-49-4204WJBGFMIN SCREENDIABETES SCREENTriHealth McCullough-Hyde Memorial Hospitaltart: 50-88-2573Zrbzi BMI ScreeningAdult BMI ScreeningErlanger Western Carolina Hospitaltart: 38-11-2478Qdrdpbc ScreeningTobacco ScreeningErlanger Western Carolina Hospitaltart: 29-95-8413FR Controlled (<130/80)BP Controlled (<130/80)[facility] Hospitaltart: 29-69-4972Tfwct BMI ScreeningAdult BMI ScreeningElyria Memorial Hospital SystemStart: 34-59-7150Ncfixmutoh Screening Depression ScreeningElyria Memorial Hospital SystemStart: 63-05-3812Wpkmoqb Screening Tobacco ScreeningProWyandot Memorial Hospital SystemStart: 42-84-0843Gfcqd BMI Screening Adult BMI ScreeningElyria Memorial Hospital SystemStart: 60-03-4484Akjjbknwqt Screening Depression ScreeningElyria Memorial Hospital SystemStart: 53-56-9799Womo Risk Screening Fall Risk ScreeningProUniversity Hospitals St. John Medical Centertart: 46-82-4427Gnotbme Screening Tobacco ScreeningProUniversity Hospitals St. John Medical Centertart: 86-90-2430Shhnvpbg blood count Hemoglobin/HematocritTriHealth McCullough-Hyde Memorial Hospitaltart: 77-25-3455Kwjumapqjj measurement Serum CreatinineTriHealth McCullough-Hyde Memorial Hospitaltart: 33-70-6234Mjxlj BMI ScreeningAdult BMI ScreeningElyria Memorial Hospital SystemStart: 12-22-1308Qupthnw ScreeningTobacco ScreeningElyria Memorial Hospital SystemStart: 83-10-9991EnjplyuktvkebdznListpomhofihfa [facility] HospitalStart: 34-31-1025Qsjlhtoybm measurementSerum CreatinineTriHealth McCullough-Hyde Memorial Hospitaltart: 08-01-2025 End: 38-75-7276Zanncyv encounter ysfmbmbvp16/16/2025 9:20 AM EST Office Visit [facility] [address] [facility] [address] [place] [id number] Yuriy Conway MD [address] [place], [place] [id number] [facility] HospitalStart: 07-27-2025 End: 71-12-1369rbyflyghxa01/11/2025 9:30 AM EST Infusion Center Infusion [address] [place] [address] BENLYSDENIS M32.9 MEDICARE A/B DR LANEY ALICEA STAFFING, X 8 weeksInfusionComment on above:BENLYSTA M32.9 MEDICARE A/B DR LANEY ALICEA STAFFING, X 8 weeksStart: 36-88-8679Quint BMI ScreeningAdult BMI ScreeningErlanger Western Carolina Hospitaltart: 02-59-6174Ahaxclbwwq ScreeningDepression ScreeningElyria Memorial Hospital SystemStart: 25-34-5127Lrrq Risk ScreeningFall Risk ScreeningElyria Memorial Hospital SystemStart: 22-57-1981Tvizgmd ScreeningTobacco ScreeningElyria Memorial Hospital SystemStart: 71-31-2685Cahbd BMI ScreeningAdult BMI ScreeningElyria Memorial Hospital SystemStart: 68-39-9470Jepczuavqd ScreeningDepression ScreeningElyria Memorial Hospital SystemStart: 23-67-5496XXOFMTYN SCREENDIABETES SCREEN [facility] Hospitaltart: 86-55-7276Ueik Risk ScreeningFall Risk ScreeningElyria Memorial Hospital SystemStart: 06-33-0234Hzljfhk ScreeningTobacco ScreeningProMedica Health SystemStart: 06-29-2025 End: 22-77-8403Duyqwgm encounter tecktbqzx95/13/2025 9:30 AM EST Office Visit [facility] [address] [place] [address] Wojciech Treviño DO [address], [facility] [place] [address] [facility] Hospitaltart: 39-56-2697MBITP SCREENLIPID SCREENTriHealth McCullough-Hyde Memorial Hospitaltart: 06-16-2025 End: 42-27-7592Bvxwbnj encounter ummvzkmgr43/31/2025 9:00 AM EDT Office Visit Gastroenterology [address] [place] [address] Dione Frances MD [address] [place], [place] [id number] Diarrhea f/uGastroenterologyComment on above:Diarrhea f/uStart: 06-14-2025 End: 47-16-5063Zzoiijq encounter xlmxnqokk09/29/2025 11:45 AM EDT Office Visit Orthopaedics [address] [place] [address] [place] [address] [place] [address] postopOrthopaedicsComment on above:postopStart: 06-12-2025 DIABETES SCREENDIABETES SCREENTriHealth McCullough-Hyde Memorial Hospitaltart: 05-24-2025 End: 88-22-4273Ycnecay encounter ikbwemvop11/08/2025 9:00 AM EDT Office Visit Rheumatology [address] [place], [place] [address] Nadege Murphy, DO [address], [address] [place] [address] 6month follow up per walk upRheumatologyComment on above: 6month follow up per walk upStart: 74-83-1086Dcyipdyv blood count Hemoglobin/HematocritTriHealth McCullough-Hyde Memorial Hospitaltart: 55-76-8462Ocbbp BMI ScreeningAdult BMI ScreeningElyria Memorial Hospital SystemStart: 13-84-4327Ieerefm ScreeningTobacco ScreeningErlanger Western Carolina Hospitaltart: 05-19-2025 End: 87-08-9627gnbwcpfkxk89/03/2025 9:00 AM EDT Infusion Center Infusion [address] [place] [address] BENLYSDENIS M32.9 MEDICARE A/B DR LANEY ALICEA STAFFING, X 8 weeksInfusionComment on above:BENLYSDENIS M32.9 MEDICARE A/B DR LANEY ALICEA STAFFING, X 8 weeksStart: 05-17-2025 End: 30-93-9343Heqlmga encounter /01/2025 11:30 AM EDT Office Visit Orthopaedics [address] [place] [address] [place] [address] [place] [address] postopOrthopaedicsComment on above:postopStart: 05-15-2025 End: 78-80-8391Wcvovcg encounter vgucenwok21/29/2025 11:30 AM EDT Office Visit Orthopaedics [address] [address] Fercho Prather PA-C [address] [place], [place] [phone] postopOrthopaedicsComment on above:postopStart: 05-03-2025 End: 34-86-4946Jcfjugj encounter procedureOrthopaedicsComment on above:postop CAST OFFCR/ POSTOP >4 WEEKSStart: 05-01-2025 End: 38-72-2973Ycbjpqnyy to same day surgery uetvsn9205/01/2025 12:20 PM EDT - 05/01/2025 4:05 PM EDT [facility] Operating Room [address] [address] [place] [address] [place] [address] ARTHRODESIS MIDTARSAL MULTIPLE/TRANSVERSEWadsworth-Rittman Hospital Operating RoomComment on above:ARTHRODESIS MIDTARSAL MULTIPLE/TRANSVERSEStart: 05-01-2025 End: 45-25-9058Nvghfk midtarsl/tarsometatarsal mult/transvrsARTHRODESIS MIDTARSAL MULTIPLE/TRANSVERSE Arthritis, neuropathic Bone disease 05/01/2025 12:20 PM EDTLU ORStart: 05-01-2025 End: 32-59-5158Ttcguxivlqq midtarsometatarsal single jointARTHRODESIS FOOT Arthritis, neuropathic Bone disease 05/01/2025 12:20 PM EDTLU ORStart: 05-01-2025 End: 52-00-4613Zajwjkglmcd subtalarARTHRODESIS SUBTALAR Arthritis, neuropathic Bone disease 05/01/2025 12:20 PM EDTLU ORStart: 05-01-2025 End: 74-91-2334Lpwyuysugil up to 1 hour physician/qhp timeFLUOROSCOPY UP TO 1 HOUR PHYSCIAN OR OTHER QUAL PROF TIME,SEPARATE PROCEDURE Arthritis, neuropathic Bone disease 05/01/2025 12:20 PM EDTLU ORStart: 05-01-2025 End: 10-59-7608Yqlmo/shrt tendon leg/ankle 1 tendon spxLENGTHENING CORD HEEL Arthritis, neuropathic Bone disease 05/01/2025 12:20 PM EDTLU ORStart: 72-37-1555Rmozdevflh hospital visit by /15/2025 12:20 PM EDT Hospital Encounter [facility] Operating Room [address] [address] [place] [address] [place] [address] Arthritis, neuropathic [M14.60], Bone disease [M89.9] [facility] Operating RoomComment on above:Arthritis, neuropathic [M14.60], Bone disease [M89.9]Start: 05-01-2025 End: 19-75-3217Jxwqexp encounter dpxkksizg84/15/2025 8:30 AM EDT Office Visit [facility] [address] [place] [address] Wojciech Treviño DO [address], [place] [address] [facility] - Family MedicineStart: 04-19-2025 End: 28-46-5667Runmlaewvx vurathuyiflr11/03/2025 1:00 PM EDT PAT Pre Anesthesia [address] [place] [address] 2, Pacc [place] [address] [place] [address] paccPre AnesthesiaComment on above:paccStart: 04-18-2025 End: 18-20-0323Lcptqek encounter efytgeggq89/02/2025 10:30 AM EDT Office Visit Orthopaedics [place] [address] [place] [address] Fercho Prather PA-C [address] [place] [address] postopOrthopaeThe Jewish HospitalComment on above:postopStart: 85-37-3590Nwesnkgte vaccinationThe Surgical Hospital at Southwoodsca [facility] SystemStart: 35-78-7710Vkgbkzhql for malignant neoplasm of breastTriHealth McCullough-Hyde Memorial Hospitaltart: 04-04-2025 End: 55-59-2581Alountu encounter yqipoemrg45/19/2025 8:20 AM EDT Office Visit Pulmonary Medicine [address] [place] [address] [place] [address] [place] [address] 3 month f/uPulmonary MedicineComment on above:3 month f/u Start: 04-03-2025 End: 31-48-8632Qfzakykge to same day surgery cfbdyq5004/03/2025 11:15 AM EDT - 04/03/2025 3:00 PM EDT [facility] Operating Room [address] [place] [address] [place] [address] [place] [address] ARTHRODESIS MIDTARSAL MULTIPLE/TRANSVERSEWadsworth-Rittman Hospital Operating RoomComment on above:ARTHRODESIS MIDTARSAL MULTIPLE/TRANSVERSEStart: 04-03-2025 End: 48-32-3152Pnekji midtarsl/tarsometatarsal mult/transvrsARTHRODESIS MIDTARSAL MULTIPLE/TRANSVERSE Arthritis, neuropathic Bone disease 04/03/2025 11:15 AM EDTLU ORStart: 04-03-2025 End: 12-86-3866Sxhavxitecq midtarsometatarsal single jointARTHRODESIS FOOT Arthritis, neuropathic Bone disease 04/03/2025 11:15 AM EDTLU ORStart: 04-03-2025 End: 81-53-2722Expnzoridcf subtalarARTHRODESIS SUBTALAR Arthritis, neuropathic Bone disease 04/03/2025 11:15 AM EDTLU ORStart: 04-03-2025 End: 96-98-6989Xyrrxdjszzu up to 1 hour physician/[facility] timeFLUOROSCOPY UP TO 1 HOUR PHYSCIAN OR OTHER QUAL PROF TIME,SEPARATE PROCEDURE Arthritis, neuropathic Bone disease 04/03/2025 11:15 AM EDTLU ORStart: 04-03-2025 End: 79-07-9516Rttab/shrt tendon leg/ankle 1 tendon spxLENGTHENING CORD HEEL Arthritis, neuropathic Bone disease 04/03/2025 11:15 AM EDTLU ORStart: 90-14-3943Wzxnhfclwi hospital visit by jggyzqqkx66/18/2025 11:15 AM EDT Hospital Encounter [facility] Operating Room [address] [address] [place] [address] [place] [address] Arthritis, neuropathic [M14.60], Bone disease [M89.9] [facility] Operating RoomComment on above:Arthritis, neuropathic [M14.60], Bone disease [M89.9]Start: 04-03-2025 End: 39-78-7536Wkbkcgueq to same day surgery [facility] Operating RoomComment on above:ARTHRODESIS MIDTARSAL MULTIPLE/TRANSVERSEStart: 04-03-2025 End: 91-45-7971Nfzfdw midtarsl/tarsometatarsal mult/transvrsLU ORStart: 04-03-2025 End: 98-07-1037Zotsermwfws midtarsometatarsal single jointLU ORStart: 04-03-2025 End: 67-20-7230Bdcswdwihqj subtalarLU ORStart: 04-03-2025 End: 07-52-7996Ceohryylwln up to 1 hour physician/qhp timeLU ORStart: 04-03-2025 End: 91-99-8014Cdsdg/shrt tendon leg/ankle 1 tendon spxLU ORStart: 04-03-2025 Subsequent hospital visit by [facility] Operating RoomComment on above:Arthritis, neuropathic [M14.60], Bone disease [M89.9]Start: 03-30-2025 Adult BMI ScreeningAdult BMI ScreeningProWyandot Memorial Hospital SystemStart: 03-30-2025 Depression ScreeningDepression ScreeningProWyandot Memorial Hospital SystemStart: 03-30-2025 Tobacco ScreeningTobacco ScreeningProWyandot Memorial Hospital SystemStart: 03-23-2025 End: 22-73-1346gdqjeiiwnd59/07/2025 9:00 AM EDT Infusion Center Infusion [address] [place] [address] BENLYSTA M32.9 MEDICARE A/B DR LANEY ALICEA STAFFING, X 8 weeksInfusionComment on above:BENLYSTA M32.9 MEDICARE A/B DR LANEY ALICEA STAFFING, X 8 weeksStart: 03-20-2025 End: 34-09-2905Gtaznksexc oxrodhcndfvx12/04/2025 9:00 AM EDT PAT Pre Anesthesia [address] [place] [address] 2, Pacc [place] [address] [facility] [place] [address] paccPre AnesthesiaComment on above:paccStart: 75-83-5274MF Controlled (<130/80)BP Controlled (<130/80) [facility] Hospitaltart: 43-76-2807KFOSTESI SCREENDIABETES SCREENOhiohealth Shelby Hospital Start: 03-10-2025 End: 37-02-2300Xmnoejj encounter zkntyjeik59/25/2025 9:30 AM EDT Office Visit Orthopaedics [address] [place] [address] Mary Childress MD [address] [facility] [place] [address] Left knee cortisone injectionOrthopaedicsComment on above: Left knee cortisone injectionStart: 07-03-2025Medicare Annual Wellness Visit Medicare Annual Wellness Visit (AWV)[facility] HospitalStart: 02-16-2025 End: 66-37-5982Ggkgexq encounter /03/2025 9:00 AM EDT Office Visit [facility] [address] [place] [address] FtqYridpi Physicians Internal Medicine - Family MedicineStart: 38-68-8400Fjjcm BMI ScreeningAdult BMI ScreeningProWyandot Memorial Hospital SystemStart: 47-84-2177Alwxnutvgh ScreeningDepression ScreeningProWyandot Memorial Hospital SystemStart: 70-04-9947Xtav Risk ScreeningFall Risk ScreeningProWyandot Memorial Hospital SystemStart: 07-02-2025Medicare Annual Wellness VisitMedicare Annual Wellness VisitProWyandot Memorial Hospital SystemStart: 02-10-2025 End: 68-86-9070Ihfjsxe encounter ajrwofzck92/27/2025 10:15 AM EDT Office Visit [facility] [address] [facility] [place] [address] Sudhir Wooten MD [address] [place], [place] [id number] : Return for rhinology 10-30 days - nasal bleeding.OtolaryngologyComment on above:: Return for rhinology 10-30 days - nasal bleeding.Start: 02-03-2025 End: 62-55-8382oymqbvapwt15/20/2025 8:15 AM EDT Results Only Edi [facility] [address] [place] [address] Lhcbie [facility] LaboratoryStart: 02-02-2025 End: 426513-qvzhnljntkzcud D3 [Mass/volume] in Serum or PlasmaVITAMIN D 25 HYDROXY Lab Routine Charcot arthropathy Disorder of bone, unspecified Expected: 02/02/2025, Expires: 05/04/2025[facility] Work Phone: Comment on above:Expected: 02/02/2025, Expires: 05/04/2025Start: 02-01-2025 End: 44-41-2334Mglpwoo encounter procedureTooele [facility] Radiology CT ScanComment on above:Closed fracture of left foot, initial encounter [S92.902ACT results Start: 01-30-2025 End: 59-12-0700hiczyghnnx28/16/2025 5:00 PM EDT Evaluation [facility] [address] [place] [address] Kimmy Cerda, REDNOMS CI PTStart: 01-26-2025 End: 46-16-4625kzfdoajfic13/12/2025 9:00 AM EDT Infusion Center Infusion [address] [facility] [place] [address] BENLYSDENIS M32.9 MEDICARE A/B DR LANEY ALICEA STAFFING, X 8 weeksInfusionComment on above:BENLYSDENIS M32.9 MEDICARE A/B DR LANEY ALICEA STAFFING, X 8 weeksStart: 01-25-2025 End: 65-98-1333Mwvtccz encounter procedureOtolaryngologyComment on above:Return for 01/25/2025 at 8:50 nose follow up.Closed fracture of left foot, initial encounter [S92.902A]Start: 01-23-2025 End: 53-99-3159Wmdkwjr encounter kquedxovx40/09/2025 10:00 AM EDT Office Visit Orthopaedics [address] [facility] [place] [address] [place] [address] [place] [address] RIGHT NAVICULAR FRACTUREOrthopaedicsComment on above:RIGHT NAVICULAR FRACTUREStart: 01-19-2025 End: 05-66-5668Mzafeog encounter procedurePodiatryComment on above:RT FOOT F/U right foot painStart: 01-18-2025 End: 33-79-1404Epxfdwt encounter irujkgsrk25/04/2025 8:50 AM EDT Office Visit Otolaryngology [address] [place], [place] [address] Curtis Ogden APRN.JEWELRY MAKER [address] [place], [place] [address] nosebleedsOtolaryngologyComment on above:nosebleedsStart: 37-19-1204Whpgovczrn measurementCreatinine LevelUnProtestant Deaconess HospitalStart: 99-38-0913Trmjiplwt measurementPotassium LevelUnProtestant Deaconess HospitalStprovidence: 12-29-2024 End: 69-66-6368Prggbaz encounter mjflltfuu30/15/2025 9:15 AM EDT Office Visit [facility] [address] [place] [address] Wojciech Treviño, [address], [place] [address] [facility] - Family MedicineStart: 12-22-2024 End: 96-86-5140Niswvme encounter zkcxfgeun69/08/2025 8:30 AM EDT Office Visit Pulmonary Medicine [address] [place] [address] [place] [address] [place] [address] SOBPulmonary MedicineComment on above:SOBStart: 12-21-2024 End: 52-18-1540Yjqsuip encounter procedureRadiologyComment on above:foot pain Right foot pain/swellingStart: 83-99-7561MLFMLVSV SCREENDIABETES SCREENTriHealth McCullough-Hyde Memorial Hospitaltart: 12-07-2024 End: 33-92-5638Piqvifdrb aminotransferase [Enzymatic activity/volume] in Serum or Plasma by With P-5'-PAspartate Aminotransferase Lab Routine Paroxysmal atrial fibrillation (Multi) High risk medication use Expected: 12/07/2024 (Approximate), Expires: 12/07/2025[facility] Service Area Work Phone: Comment on above:Expected: 12/07/2024 (Approximate), Expires: 12/07/2025Start: 12-07-2024 End: 23-24-6469Leczq metabolic 2000 panel - Serum or PlasmaBasic Metabolic Panel Lab Routine Paroxysmal atrial fibrillation (Multi) High risk medication use Ex pected: 12/07/2024 (Approximate), Expires: 12/07/2025[facility] Work Phone: Comment on above:Expected: 12/07/2024 (Approximate), Expires: 12/07/2025Start: 12-07-2024 End: 37-18-0670Vunovhia Pulmonary Function Test (Spirometry/DLCO/Lung Volumes) Complete Pulmonary Function Test (Spirometry/DLCO/Lung Volumes) PFT Routine Paroxysmal atrial fibrillation (Multi) High risk medication use Expected: 12/07/2024 (Approximate), Expires: 12/07/2025[facility] Work Phone: Comment on above:Expected: 12/07/2024 (Approximate), Expires: 12/07/2025Start: 12-07-2024 End: 85-69-6673Wrsbmwrffkg [Units/volume] in Serum or PlasmaThyroid Stimulating Hormone Lab Routine Paroxysmal atrial fibrillation (Multi) High risk medication use Expected: 12/07/2024 (Approximate), Expires: 12/07/2025[facility] Work Phone: Comment on above:Expected: 12/07/2024 (Approximate), Expires: 12/07/2025Start: 12-07-2024 End: 01-76-9020QO Chest 2 ViewsXR chest 2 views Imaging Routine Paroxysmal atrial fibrillation (Multi) High risk medication use Expected: 12/07/2024 (Approximate), Expires: 12/07/2025[facility] Work Phone: Comment on above:Expected: 12/07/2024 (Approximate), Expires: 12/07/2025Start: 12-07-2024 End: 73-21-9235Tsywxfo encounter sweuwqtct53/23/2025 10:40 AM EDT Office Visit [facility] [address] [facility] [address] [place] [address] Yuriy Conway MD [address] [facility] [address] [place] [address] [facility]: 12-01-2024 End: 96-34-0204awhmjdsfjn19/17/2025 9:00 AM EDT Infusion Center Infusion [address] [place] [address] BENLYSTA M32.9 MEDICARE A/B DR LANEY ALICEA STAFFING, X 8 weeksInfusionComment on above:BENLYSTA M32.9 MEDICARE A/B DR LANEY ALICEA STAFFING, X 8 weeksStart: 11-16-2024 End: 79-23-5634TZI ANTIBODY DS [facility] Work Phone: Comment on above:Expected: 11/16/2024, Expires: 02/15/2025Start: 11-16-2024 End: 97-61-0095Tovhxsi encounter hoaawwryt61/02/2025 9:00 AM EDT Office Visit Rheumatology [address] [id number] Nadege Murphy DO [address], [address] [place] [address] SLE 6 Month Follow UpRheumatologyComment on above:SLE 6 Month Follow UpStart: 11-15-2024 End: 85-28-9110YUF W Auto Differential panel - BloodCOMPLETE BLOOD COUNT AND DIFFERENTIAL Lab Routine Lupus nephritis, ISN/RPS class V (HCC) Expected: 0 11/15/2024, Expires: 02/14/2025[facility] ClinicComment on above:Expected: 11/15/2024, Expires: 02/14/2025Start: 11-15-2024 End: 97-23-8000Kkscwajmzurxr metabolic 2000 panel - Serum or PlasmaCOMPREHENSIVE METABOLIC PANEL Lab Routine Lupus nephritis, ISN/RPS class V (HCC) Expected: 11/15/2024, Expires: 02/14/2025[facility] Work Phone: Comment on above:Expected: 11/15/2024, Expires: 02/14/2025Start: 11-15-2024 End: 82-74-3519Dhyslwr/Creatinine [Mass Ratio] in UrinePROTEIN / CREATININE RATIO Lab Routine Lupus nephritis, ISN/RPS class V (HCC) Expected: 11/15/2024, Expires: 02/14/2025[facility] ClinicComment on above:Expected: 11/15/2024, Expires: 02/14/2025Start: 11-15-2024 End: 32-97-9161Wathreacwe complete panel - UrineURINALYSIS (WITH MICROSCOPIC) WITH CULTURE IF INDICATED Lab Routine Lupus nephritis, ISN/RPS class V (HCC) Expected: 11/15/2024, Expires: 02/14/2025[facility] ClinicComment on above: Expected: 11/15/2024, Expires: 02/14/2025Start: 11-15-2024 End: 56-25-2969Kofhjsg encounter /01/2025 9:20 AM EDT Office Visit Kidney Medicine [address] [place] [address] Radu Salazar MD [address] [place], [place] [phone] Follow upKidney MedicineComment on above:Follow upStart: 90-76-7157DG Controlled (<130/80)BP Controlled (<130/80)[facility]: 10-06-2024 End: 74-71-7952vaqyjertxk81/20/2025 9:00 AM EST Infusion Center Infusion [address] [facility] [place] [address] BENLYSTA M32.9 MEDICARE A/B DR LANEY ALICEA STAFFING, X 8 weeksInfusionComment on above:BENLYSTA M32.9 MEDICARE A/B DR LANEY ALICEA STAFFING, X 8 weeksStart: 09-30-2024 End: 44-34-9365Bsoqyzq encounter gjbeykcvd01/14/2025 9:45 AM EST Office Visit Gastroenterology [address] [place], [place] [phone] Dione Frances MD [address] [place] [address] [address] [place], [place] [phone] per 12/22/23 ov, 4 month fu ov & CCF R/S From 05/03GastroenterologyComment on above:per 12/22/23 ov, 4 month fu ov & CCF R/S From 05/03Start: 09-20-2024 End: 21-85-7962raeaipmcmq67/04/2025 1:00 PM EST [facility] [address] [address] Obdulia Ann PA-C [address] [address] Osteopenia f/uBone CenterComment on above:Osteopenia f/uStart: 09-19-2024 [facility]2024 End: 56-70-9656Nncbcbb encounter oeqguxdwz04/27/2025 9:45 AM EST Appointment [facility] [address] [place] [address] PC [facility]Start: 09-05-2024 End: 13-70-8372EN Heart TransthoracicTransthoracic Echo Complete Echocardiography Routine Chronic diastolic heart failure (Multi) Shortness of breath Expected: 09/05/2024 (Approximate), Expires: 08/05/2026[facility] Work Phone: Comment on above:Expected: 09/05/2024 (Approximate), Expires: 08/05/2026Start: 90-00-9628Lneuv BMI ScreeningAdult BMI Screening [facility] SystemStart: 99-88-7713Pfwqdtubsy ScreeningDepression Screening [facility] SystemStart: 98-65-3716Gdyygfr ScreeningTobacco Screening [facility] SystemStart: 08-23-2024 End: 60-17-3267Gtfjnrh encounter nabgkdqjn50/07/2025 9:15 AM EST Office Visit Orthopaedics [address] [place] [address] Mary Childress MD [address] [facility] [address] [facility] [place] [address] Follow up Left kneeOrthopaedicsComment on above:Follow up Left kneeStart: 21-47-8641Csooaju Directive DiscussionAdvance Directive DiscussionTriHealth McCull[facility]-Hyde Memorial Hospitaltart: 08-11-2024 End: 56-06-0466sqjhbgxhsy51/26/2024 9:30 AM EST Infusion Center Infusion [address] [facility] Anamaria Goodman [facility] [place] [address] BENLYSDENIS M32.9 MEDICARE A/B DR LANEY ALICEA STAFFING, X 8 weeksInfusionComment on above:BENLYSDENIS M32.9 MEDICARE A/B DR LANEY ALICEA STAFFING, X 8 weeksStart: 08-09-2024 End: 88-01-5337Sdysahh encounter pghmgjrow14/24/2024 10:00 AM EST Appointment [address] Luis, [id number] [facility]: 08-08-2024 End: 97-09-4076Shfqbwo encounter scstotlln72/23/2024 10:45 AM EST Appointment [address] Luis, [id number] [facility]: 08-05-2024 End: 09-46-2395Gxptfgx encounter gquxuhura39/20/2024 3:00 PM EST Office Visit [facility] [address] [facility] [address] [place] [address] Yuriy Conway MD [address] [facility] [address], [address] [place] [address] [facility]: 08-05-2024 End: 03-07-8621Xetnkavw Pulmonary Function Test (Spirometry/DLCO/Lung Volumes) Complete Pulmonary Function Test (Spirometry/DLCO/Lung Volumes) PFT Routine Paroxysmal atrial fibrillation (Multi) High risk medication use Expected: 08/05/2024 (Approximate), Expires: 08/05/2025[facility] Work Phone: Comment on above:Expected: 08/05/2024 (Approximate), Expires: 08/05/2025Start: 08-05-2024 End: 34-61-1629SY Chest 2 ViewsXR chest 2 views Imaging Routine Paroxysmal atrial fibrillation (Multi) High risk medication use Expected: 08/05/2024, Expires: 08/05/2025[facility] Service Area Work Phone: Comment on above:Expected: 08/05/2024, Expires: 08/05/2025Start: 60-41-0646Epxmcpa ScreeningTobacco ScreeningThe Surgical Hospital at Southwoodsca [facility] SystemStart: 07-21-2024 End: 59-12-7204Mnwlers encounter ddakwzmip74/05/2024 9:00 AM EST Office Visit [facility] [address] [place] [address] Wojciech Treviño, [address], [place] [address] [facility] MedicineStart: 07-19-2024 End: 77-53-3200Mkzpr function 2000 panel - Serum or PlasmaRENAL FUNCTION PANEL Lab Routine Paroxysmal atrial fibrillation (HCC) Epistaxis Preoperative examina tion, unspecified Expected: 07/19/2024, Expires: [address] [place] [address] Work Phone: Comment on above:Expected: 07/19/2024, Expires: 10/18/2024Start: 07-11-2024 End: 76-51-4343Bfeirbq encounter guvhbytge97/25/2024 2:00 PM EST Office Visit Rheumatology [address] [address] Nadege Murphy, DO [address], [address] [place], [place] [phone] per patient requestRheumatologyComment on above:per patient requestStart: 07-08-2024 End: 31-73-7030Civjcbw encounter hshcdfuxc15/22/2024 9:45 AM EST Office Visit Gastroenterology [address] [place] [address] Dione Frances MD [address] [facility] [place] [address] per 12/22/23 ov, 4 month fu ov & CCF R/S From 05/03GastroenterologyComment on above:per 12/22/23 ov, 4 month fu ov & CCF R/S From 05/03Start: 06-30-2024 End: 82-66-9663Khxmytk encounter rriijhrrh95/14/2024 9:00 AM EST Office Visit [facility] [address] [place] [address] Wojciech Treviño DO [address], [facility] [place] [address] [facility] MedicineStart: 06-14-2024 End: 97-95-6069qbiffxbjld87/29/2024 9:30 AM EDT Infusion Center Infusion [address] [facility] [place] [address] CHERYL M32.9 MEDICARE A/B DR LANEY ALICEA STAFFING, x 8 weeksInfusionComment on above:CHERYL M32.9 MEDICARE A/B DR LANEY ALICEA STAFFING, x 8 weeksStart: 06-10-2024 End: 31-44-9217Rftknho encounter widsddxtf87/25/2024 2:20 PM EDT Office Visit [facility] [address] [facility] [address] [place] [address] Yuriy Conway MD [address], [address] [place] [address] [facility]: 06-10-2024 End: 70-48-0743Hxrnocl encounter unvyogfeg32/25/2024 9:45 AM EDT Office Visit Gastroenterology [address] [place] [address] Dione Frances MD [address] [facility] [place] [address] per 12/22/23 ov, 4 month fu ov & CCF R/S From 05/03GastroenterologyComment on above:per 12/22/23 ov, 4 month fu ov & CCF R/S From 05/03Start: 05-27-2024 End: 51-85-8672Jiaaodlcfbixg metabolic 2000 panel - Serum or PlasmaCOMPREHENSIVE METABOLIC PANEL Lab Routine Systemic lupus erythematosus, unspecified SLE type, unspecified organ involvement status (HCC) Expected: 05/27/2024, Expires: 08/26/2024[facility] Work Phone: Comment on above:Expected: 05/27/2024, Expires: 08/26/2024Start: 05-20-2024 End: 18-87-0877oeqqubobyy56/04/2024 9:30 AM EDT Treatment [facility] PT [address] [place] [address] Patrick Argueta PTANOMS CI PTStart: 05-20-2024 End: 79-43-6615Qtthhwg encounter procedureOrthopaedicsComment on above:Left knee left knee sunrise viewStart: 05-19-2024 End: 20-45-7764Tibtnpw encounter uggidhqif54/03/2024 3:45 PM EDT Office Visit [facility] [address] [place] [address] Wojciech Treviño, [address], [place] [address] [facility] MedicineStart: 05-18-2024 End: 56-40-3305dyxvuaniiw67/02/2024 2:30 PM EDT Treatment [facility] [address] [place] [address] Patrick Argueta PTANOMS CI PTStart: 05-18-2024 End: 12-05-7218Dewlibb encounter pzebkluap80/02/2024 2:30 PM EDT Office Visit Rheumatology [address] [address] Nadege Murphy, DO [address], [address] [place], [place] [address] per patient requestRheumatologyComment on above:per patient requestStart: 05-18-2024 End: 65-51-2055ATV W Auto Differential panel - BloodCOMPLETE BLOOD COUNT AND DIFFERENTIAL Lab Routine Systemic lupus erythematosus, unspecified SLE type, unspecified organ involvement status (HCC) Expected: 05/18/2024, Expires: 08/17/2024[facility] ClinicComment on above:Expected: 05/18/2024, Expires: 08/17/2024Start: 05-18-2024 End: 10-73-9949Fjjvevplftapq metabolic 2000 panel - Serum or PlasmaCOMPREHENSIVE METABOLIC PANEL Lab Routine Systemic lupus erythematosus, unspecified SLE type, unspecified organ involvement status (HCC) Expected: 05/18/2024, Expires: 08/17/2024leveldorothea dix hospital ClinicComment on above:Expected: 05/18/2024, Expires: 08/17/2024Start: 05-18-2024 End: 71-94-7757Bzazfujw kinase [Enzymatic activity/volume] in Serum or Plasma CREATINE KINASE/CK Lab Routine Systemic lupus erythematosus, unspecified SLE type, unspecified organ involvement status (HCC) Expected: 05/18/2024, Expires: 08/17/2024[facility] Work Phone: Comment on above:Expected: 05/18/2024, Expires: 08/17/2024Start: 05-18-2024 End: 12-37-8029Iezruce/Creatinine [Mass Ratio] in UrinePROTEIN / CREATININE RATIO Lab Routine Systemic lupus erythematosus, unspecified SLE type, unspecifi ed organ involvement status (HCC) Expected: 05/18/2024, Expires: 08/17/2024 [facility] HospitalComment on above:Expected: 05/18/2024, Expires: 08/17/2024Start: 05-18-2024 End: 30-28-4822Rjjgvdyyah complete panel - UrineURINALYSIS, WITH MICROSCOPIC Lab Routine Systemic lupus erythematosus, unspecified SLE type, unspecified organ involvement status (HCC) Expected: 05/18/2024, Expires: 08/17/2024[facility] ClinicComment on above:Expected: 05/18/2024, Expires: 08/17/2024Start: 92-24-4248XPSKBBGJ SCREENDIABETES SCREENTriHealth McCullough-Hyde Memorial Hospitaltart: 05-12-2024 End: 57-87-1806svpbtdvwvwZZKL CI PTComment on above:ArrivedStart: 05-03-2024 End: 59-96-5664Bbxpbna encounter uxdivizjd43/17/2024 9:40 AM EDT Office Visit Gastroenterology [address] [place] [address] Dione Frances MD [address] [facility] [place] [address] per 12/22/23 ov, 4 month fu ovGastroenterologyComment on above:per 12/22/23 ov, 4 month fu ovStart: 05-02-2024 End: 43-43-2829Zideuet encounter mphjrvrjo25/16/2024 2:20 PM EDT Office Visit [facility] [address] [place] [address] Yuriy Conway MD [address] [place] [address] [facility]: 04-19-2024 End: 65-59-3325buwtcupudg16/03/2024 10:00 AM EDT Infusion Center Infusion [address] [facility] [place] [address] BENLYSTA M32.9 MEDICARE A/B DR LANEY ALICEA STAFFING, x 8 weeksInfusionComment on above:BENLYSTA M32.9 MEDICARE A/B DR LANEY ALICEA STAFFING, x 8 weeksStart: 84-83-0659Acgfo-19 Vaccine ( season)Covid-19 Vaccine ()[facility]: 04-17-2024 Covid-19 Vaccine ( season)Covid-19 Vaccine () [facility]: 69-45-2108Zdicdnzqx vaccinationTriHealth McCullough-Hyde Memorial Hospitaltart: 12-43-4965Vwypk BMI ScreeningAdult BMI ScreeningProUniversity Hospitals St. John Medical Centertart: 18-10-5308Qjknoxqdfm ScreeningDepression ScreeningProUniversity Hospitals St. John Medical Centertart: 09-00-5148Aecp Risk ScreeningFall Risk ScreeningProUniversity Hospitals St. John Medical Centertart: 54-41-8986FieyltabxfxVXYPADSHSCEJfvotoizf ClinicStart: 86-01-7355IRSCSSRVUF CANCER SCREENINGCOLORECTAL CANCER SCREENINGTriHealth McCull[facility]-Hy[facility] Hospitaltart: 04-02-2024 Screening for malignant neoplasm of colonTriHealth McCullough-Hyde Memorial Hospitaltart: 04-01-2024 MammographyTriHealth McCullough-Hyde Memorial Hospitaltart: 23-82-5600Dljtgkbwl for malignant neoplasm of breastParma Community General HospitalStart: 03-30-2024 End: 53-07-3969WKC Breast - bilateral screeningMammography screening bilateral with CAD Imaging Routine Encounter for screening mammogram for malignant neoplasm of breast Expected: 03/30/2024, Expires: 03/30/2025ProWyandot [facility] Hospital SystemComment on above:Expected: 03/30/2024, Expires: 03/30/2025Start: 03-30-2024 End: 94-52-0511ZV.doppler Upper extremity vein - leftVas venous duplex upr single left Vascular Ultrasound Routine Varicose veins of left upper extremity Localized swelling, mass and lump, head Expected: 03/30/2024, Expires: 03/30/2025[facility] Work Phone: Comment on above:Expected: 03/30/2024, Expires: 03/30/2025Start: 03-30-2024 End: 12-35-1428Ocajpny encounter quvpmcoxr01/14/2024 10:00 AM EDT Office Visit [facility] [address] [place] [address] Wojciech Treviño, DO [address] [facility] [place] [address] [facility] - Family MedicineStart: 03-28-2024 End: 51-88-1028Sbsddrj encounter procedureRadiologyComment on above: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]no full UBStart: 03-18-2024 End: 78-66-1011ovbrljzbyn74/02/2024 9:30 AM EDT Results Only [facility] [address] [place] [address] [facility] LaboratoryStart: 03-17-2024 End: 06-16-2024 reactive protein [Mass/volume] in Serum or PlasmaC-REACTIVE PROTEIN Lab Routine Systemic lupus erythematosus, unspecified SLE type, unspecified organ involvement status (HCC) Expected: 03/17/2024, Expires: 06/16/2024[facility] Work Phone: Comment on above:Expected: 03/17/2024, Expires: 06/16/2024Start: 03-17-2024 End: 31-61-7813Zdhhdasods C3 [Mass/volume] in Serum or PlasmaC3 COMPLEMENT Lab Routine Systemic lupus erythematosus, unspecified SLE type, unspecified organ involvement status (HCC) Expected: 03/17/2024, Expires: 06/16/2024[facility] ClinicComment on above:Expected: 03/17/2024, Expires: 06/16/2024Start: 03-17-2024 End: 41-56-9322Rstgtfnctg C4 [Mass/volume] in Serum or PlasmaC4 COMPLEMENT Lab Routine Systemic lupus erythematosus, unspecified SLE type, unspecified organ involvement status (HCC) Expected: 03/17/2024, Expires: 06/16/2024[facility] ClinicComment on above:Expected: 03/17/2024, Expires: 06/16/2024Start: 03-17-2024 End: 34-76-0869Rhuigtqp kinase [Enzymatic activity/volume] in Serum or Plasma CREATINE KINASE/CK Lab Routine Systemic lupus erythematosus, unspecified SLE type, unspecified organ involvement status (HCC) Expected: 03/17/2024, Expires: 06/16/2024[facility] ClinicComment on above:Expected: 03/17/2024, Expires: 06/16/2024Start: 03-17-2024 End: 57-26-2752RYB ANTIBODY DS BLDDNA ANTIBODY DS BLD Lab Routine Systemic lupus erythematosus, unspecified SLE type, unspecified organ involvement status (HCC) Expected: 03/17/2024, Expires: 06/16/2024[facility] ClinicComment on above: Expected: 03/17/2024, Expires: 06/16/2024Start: 03-17-2024 End: 16-51-4982Grrytyptvak sedimentation rateSEDIMENTATION RATE, WESTERGREN Lab Routine Systemic lupus erythematosus, unspecified SLE type, unspecified organ involvement status (HCC) Expected: 03/17/2024, Expires: 06/16/2024[facility] ClinicComment on above:Expected: 03/17/2024, Expires: 06/16/2024Start: 03-17-2024 End: 17-76-7553mfhtdcutzk28/01/2024 9:30 AM EDT Infusion Center Infusion [address] [facility] [place] [address] BENLYSTA M32.9 MEDICARE A/B DR LANEY ALICEA STAFFING, Y9FPjxmvtarTvxshvb on above:BENLYSTA M32.9 MEDICARE A/B DR LANEY ALICEA STAFFING, U5PHjdyu: 03-15-2024 End: 27-24-7369lbvzeyexji18/30/2024 1:40 PM EDT Procedure Bone Center [address] [address] dxaBone CenterComment on above:dxa Start: 03-15-2024 End: 38-98-9619Nvhpigx encounter procedureBone CenterComment on above: osteoporosis 5m fu per mirandadxaStart: 02-29-2024 End: 61-34-0529Qnoguga encounter /15/2024 1:00 PM EDT Office Visit [facility] [address] [facility] [address] [place] [address] Yuriy Conway MD [address] [facility] [address], [address] [place] [address] [facility]: 02-23-2024 End: 69-32-2104eszvlhgplb86/09/2024 9:30 AM EDT Infusion Center Infusion [address] [facility] [place] [address] BENLYSTA M32.9 MEDICARE A/B DR LANEY ALICEA STAFFING, Y7KKxiyjowxItgcyad on above:BENLYSTA M32.9 MEDICARE A/B DR LANEY ALICEA STAFFING, V9IUftwo: 02-16-2024 End: 24-84-8939Ypeqibg encounter /02/2024 9:00 AM EDT Office Visit [facility] [address] [place] [address] HasYufdzz Physicians Internal Medicine - Family MedicineStart: 02-12-2024 End: 93-85-5962Cttlgox encounter bqbzzxajq03/28/2024 8:30 AM EDT Appointment Radiology [address] [facility] [place] [address] US KIDNEY RadiologyComment on above:US KIDNEYStart: 24-28-5226OO CONTROLLED (<130/80)BP CONTROLLED (<130/80)[facility] Hospitaltart: 06-13-2024Medicare Annual Wellness VisitMedicare Annual Wellness VisitElyria Memorial Hospital SystemStart: 12-29-2023 End: 89-15-9757Diszigj encounter peujwuklg39/14/2024 9:40 AM EDT Office Visit Kidney Medicine [address] [place] [address] Radu Salazar MD [address] [place] [address] Kidney Function - LupusKidney MedicineComment on above:Kidney Function - LupusStart: 12-25-2023 End: 60-03-4225GJP W Auto Differential panel - BloodCOMPLETE BLOOD COUNT AND DIFFERENTIAL Lab Routine Systemic lupus erythematosus, unspecified SLE type, unspecified organ involvement status (HCC) Expected: 12/25/2023, Expires: 03/25/2024[facility] ClinicComment on above:Expected: 12/25/2023, Expires: 03/25/2024Start: 12-25-2023 End: 46-30-1577Dvxonunlst C3 [Mass/volume] in Serum or PlasmaC3 COMPLEMENT Lab Routine Systemic lupus erythematosus, unspecified SLE type, unspecified organ involvement status (HCC) Expected: 12/25/2023, Expires: 03/25/2024[facility] Work Phone: Comment on above:Expected: 12/25/2023, Expires: 03/25/2024Start: 12-25-2023 End: 86-27-7243Fwnpmghayt C4 [Mass/volume] in Serum or PlasmaC4 COMPLEMENT Lab Routine Systemic lupus erythematosus, unspecified SLE type, unspecified organ involvement status (HCC) Expected: 12/25/2023, Expires: 03/25/2024[facility] ClinicComment on above:Expected: 12/25/2023, Expires: 03/25/2024Start: 12-25-2023 End: 05-39-2049Hegvdhsfgbxuc metabolic 2000 panel - Serum or PlasmaCOMPREHENSIVE METABOLIC PANEL Lab Routine Systemic lupus erythematosus, unspecified SLE type, unspecified organ involvement status (HCC) Expected: 12/25/2023, Expires: 03/25/2024[facility] ClinicComment on above:Expected: 12/25/2023, Expires: 03/25/2024Start: 12-25-2023 End: 23-35-6812LRX ANTIBODY DS BLDDNA ANTIBODY DS BLD Lab Routine Systemic lupus erythematosus, unspecified SLE type, unspecified organ involvement status (HCC) Expected: 12/25/2023, Expires: 03/25/2024[facility] ClinicComment on above: Expected: 12/25/2023, Expires: 03/25/2024Start: 12-25-2023 End: 65-53-9442Hgmccpo/Creatinine [Mass Ratio] in UrinePROTEIN / CREATININE RATIO Lab Routine Systemic lupus erythematosus, unspecified SLE type, unspecifi ed organ involvement status (HCC) Expected: 12/25/2023, Expires: 03/25/2024 [facility] HospitalComment on above:Expected: 12/25/2023, Expires: 03/25/2024Start: 12-25-2023 End: 74-42-1189Tzteqoxqqy complete panel - UrineURINALYSIS, WITH MICROSCOPIC Lab Routine Systemic lupus erythematosus, unspecified SLE type, unspecified organ involvement status (HCC) Expected: 12/25/2023, Expires: 03/25/2024[facility] ClinicComment on above:Expected: 12/25/2023, Expires: 03/25/2024Start: 12-25-2023 End: 46-07-3862Elfyzq-up egnumoldi08/10/2024 10:00 AM EDT [facility] Rheumatology [address] [address] Nadege Murphy, [address], [address] [place] [address] FOLLOW UP - LUPUSRheumatologyComment on above:FOLLOW UP - LUPUS Start: 12-24-2023 End: 09-50-0168syywuxvvik75/09/2024 9:30 AM EDT Infusion Center Infusion [address] [facility] [place] [address] BENLYSDENIS M32.9 MEDICARE A/B DR LANEY ALICEA STAFFING, L0SAsrlnwynTvrenuo on above:BENLYSDENIS M32.9 MEDICARE A/B DR LANEY ALICEA STAFFING, S9ERryjx: 12-23-2023 End: 18-15-7689Iedovaq encounter cvvuhvckj42/08/2024 11:30 AM EDT Office Visit Rheumatology [address] [address] Nadege Murphy DO [address] [place], [place] [address] 6m SLE fu per radamesRheumatologyComment on above:6m SLE fu per radamesStart: 12-22-2023 End: 11-76-6822Tjlttac encounter lgreqlbqo77/07/2024 11:00 AM EDT Office Visit Gastroenterology [address] [place] [address] Dione Frances MD [address] [facility] [place] [address] 6 month Follow UpGastroenterologyComment on above:6 month Follow UpStart: 20-95-3396SbikppulxMarion Hospitaltart: 11-16-2023 End: 00-92-7060Pieludh encounter vluospkyo26/01/2024 3:30 PM EDT Office Visit [facility] [address] [place] [address] [place] [address] [place] [address] [facility]: 11-05-2023 End: 23-94-2160UDU 12 LeadECG 12 Lead ECG Routine Paroxysmal atrial fibrillation (CMS/HCC) Expected: 11/05/2023 (Approximate), Expires: 10/28/2024[facility] Service Area Work Phone: Comment on above:Expected: 11/05/2023 (Approximate), Expires: 10/28/2024Start: 09-17-2023 End: [id number] ExternalCardioversion External Cardiac Services Routine Paroxysmal atrial fibrillation (CMS/HCC) Expected: 09/17/2023 (Approximate), Expires: 09/17/2025[facility] Service Area Work Phone: Comment on above:Expected: 09/17/2023 (Approximate), Expires: 09/17/2025Start: 81-42-0627SrorczomowlbvfkvLfvhfmlkohqengRsmxnqtcgj Hospitals of ClevelandStart: 02-55-5685Xowefyt Directive DiscussionAdvance Directive DiscussionCleSelect Medical Specialty [facility] Northtart: 26-77-4697Alsnrjllrd Health Screening Behavioral Health ScreeningTriHealth McCull[facility] Hospitaltart: 46-92-3098Arybzlcpne AssessmentDepression AssessmentTriHealth McCullough-Hyde Memorial Hospitaltart: 37-72-1056JPQ, Provider: Yuriy Conway, Status: Pen, Time: 10:20 AMFUV, Provider: Yuriy Conway, Status: Pen, Time: 10:20 [facility] Work Phone: Start: 54-06-6065MP CONTROLLED (<130/80)BP CONTROLLED (<130/80)[facility] Hospitaltart: 47-82-6964BF CONTROLLED (<130/80)BP CONTROLLED (<130/80)[facility] Hospitaltart: 12-11-1000RC CONTROLLED (<130/80)BP CONTROLLED (<130/80)[facility] Hospitaltart: 43-08-7508Tmxlj-19 Vaccine ( season) Covid-19 Vaccine ( season)[facility] Hospitaltart: 47-11-9587Awwcwslek vaccinationTriHealth McCullough-Hyde Memorial Hospitaltart: 04-17-2023 End: 49-47-4004Fcxpj 1996 panel - Serum or PlasmaLIPID PANEL BASIC Lab Routine Mixed hyperlipidemia Hypomagnesemia Expected: 04/17/2023, Expires: 06/17/2023 [facility] Work Phone: Comment on above:Expected: 04/17/2023, Expires: 06/17/2023Start: 04-17-2023 End: 68-64-0841Vmlyzxswh [Mass/volume] in Serum or PlasmaMAGNESIUM BLD Lab Routine Mixed hyperlipidemia Hypomagnesemia Expected: 04/17/2023, Expires: 06/17/2023[facility] Work Phone: Comment on above:Expected: 04/17/2023, Expires: 06/17/2023Start: 04-10-2023 End: 06-84-8232EBX W Auto Differential panel - BloodCBC + DIFF Lab Routine Systemic lupus erythematosus, unspecified SLE type, unspecified organ involve ment status (HCC) Expected: 04/10/2023, Expires: 06/10/2023[facility] Work Phone: Comment on above:Expected: 04/10/2023, Expires: 06/10/2023Start: 04-10-2023 End: 58-27-9853Kmgxzfbuny C3 [Mass/volume] in Serum or PlasmaC3 COMPLEMENT BLD Lab Routine Systemic lupus erythematosus, unspecified SLE type, unspecified organinvolvement status (HCC) Expected: 04/10/2023, Expires: 06/10/2023[facility] Work Phone: Comment on above:Expected: 04/10/2023, Expires: 06/10/2023Start: 04-10-2023 End: 78-67-9030Txehhqzavy C4 [Mass/volume] in Serum or PlasmaC4 COMPLEMENT BLD Lab Routine Systemic lupus erythematosus, unspecified SLE type, unspecified organinvolvement status (HCC) Expected: 04/10/2023, Expires: 06/10/2023[facility] Work Phone: Comment on above:Expected: 04/10/2023, Expires: 06/10/2023Start: 04-10-2023 End: 80-72-7239Jyhcedusvwast metabolic 2000 panel - Serum or PlasmaCOMP METABOLIC PANEL Lab Routine Systemic lupus erythematosus, unspecified SLE type, unspecified organ involvement status (HCC) Expected: 04/10/2023, Expires: 06/10/2023[facility] Work Phone: Comment on above:Expected: 04/10/2023, Expires: 06/10/2023Start: 04-10-2023 End: 91-98-8249YUY ANTIBODY DS BLDDNA ANTIBODY DS BLD Lab Routine Systemic lupus erythematosus, unspecified SLE type, unspecified organ involvement status (HCC) Expected: 04/10/2023, Expires: 06/10/2023[facility] Work Phone: Comment on above:Expected: 04/10/2023, Expires: 06/10/2023Start: 04-10-2023 End: 53-58-5265Ibzipsi/Creatinine [Mass Ratio] in UrinePROTEIN CREATININE RATIO Lab Routine Systemic lupus erythematosus, unspecified SLE type, unspecified organ involvement status (HCC) Expected: 04/10/2023, Expires: 06/10/2023 [facility] Work Phone: Comment on above:Expected: 04/10/2023, Expires: 06/10/2023Start: 04-10-2023 End: 34-79-2457Ivkhkynhdy complete panel - UrineURINALYSIS, WITH MICROSCOPIC Lab Routine Systemic lupus erythematosus, unspecified SLE type, unspecified organ involvement status (HCC) Expected: 04/10/2023, Expires: 06/10/2023[facility] Work Phone: Comment on above:Expected: 04/10/2023, Expires: 06/10/2023Start: 92-40-1701SD CONTROLLED (<130/80)BP CONTROLLED (<130/80) [facility] Hospitaltart: 02-21-2023 End: 887268-yrhtolqkkxfshu D3 [Mass/volume] in Serum or PlasmaVITAMIN D 25 HYDROXY Lab Routine Hyperparathyroidism (HCC) Expected: 02/21/2023, Expires: 03/23/2023[facility] Work Phone: comment on above:Expected: 02/21/2023, Expires: 03/23/2023Start: 02-21-2023 End: 93-91-7819Kumiwjt [Mass/volume] in Serum or PlasmaCALCIUM TOTAL BLD Lab Routine Hyperparathyroidism (HCC) Expected: 02/21/2023, Expires: 03/23/2023 [facility] Work Phone: comment on above:Expected: 02/21/2023, Expires: 03/23/2023Start: 02-21-2023 End: 65-89-5115Ttsqqjhuhu.intact [Mass/volume] in Serum or PlasmaPTH INTACT BLD Lab Routine Hyperparathyroidism (HCC) Expected: 02/21/2023, Expires: 03/23/2023 [facility] Work Phone: comment on above:Expected: 02/21/2023, Expires: 03/23/2023Start: 02-04-2023 End: 46-14-7158IDE BY IFA WITH REFLEXMercy Health Perrysburg Hospital Work Phone: Comment on above:Expected: 02/04/2023, Expires: 04/06/2023Start: 02-04-2023 End: 35-10-9772Cbisnv citrullinated peptide IgG Ab [Units/volume] in Serum or PlasmaMercy Health Perrysburg Hospital Work Phone: Comment on above:Expected: 02/04/2023, Expires: 04/06/2023Start: 02-04-2023 End: 69-95-7045STM ANTIBODY DS DCUC [facility] Work Phone: Comment on above:Expected: 02/04/2023, Expires: 04/06/2023Start: 66-07-0902PH CONTROLLED (<130/80)BP CONTROLLED (<130/80) [facility] Hospitaltart: 12-19-2022 End: 72-93-6953Icpzjpjrbrfl [Mass/mass] in StoolCALPROTECTIN,FECAL Lab Routine Diarrhea, unspecified type Expected: 12/19/2022 (Approximate), Expires: 2023[facility] Work Phone: Comment on above:Expected: 12/19/2022 (Approximate), Expires: 2023Start: 12-19-2022 End: 32-98-9952Gcmntvsxyhmfmw difficile toxin genes [Presence] in Stool by RAVIN with probe detectionC. DIFFICILE PCR Lab Routine Diarrhea, unspecified type Expected: 12/19/2022 (Approximate), Expires: 2023[facility] Work Phone: Comment on above:Expected: 12/19/2022 (Approximate), Expires: 2023Start: 12-19-2022 End: 06-47-1800TRSANLH BACTERIAL PANEL BY PCRENTERIC BACTERIAL PANEL BY PCR Lab Routine Diarrhea, unspecified type Expected: 12/19/2022 (Approximate), Expires: 2023[facility] Work Phone: Comment on above:Expected: 12/19/2022 (Approximate), Expires: 2023Start: 12-19-2022 End: 34-14-0024Lckxmzv lamblia+Cryptosporidium sp Ag [Presence] in Stool by ImmunoassayCRYPTOSPORIDIUM AND GIARDIA ANTIGENS BY EIA Microbiology Routine Diarrhea, unspecified type Expected: 12/19/2022 (Approximate), Expires: 2023[facility] Work Phone: Comment on above:Expected: 12/19/2022 (Approximate), Expires: 2023Start: 12-19-2022 End: 06-81-4220KFTL ELASTASE, FECALPANC ELASTASE, FECAL Lab Routine Diarrhea, unspecified type Expected: 12/19/2022 (Approximate), Expires: 2023 [facility] Work Phone: Comment on above:Expected: 12/19/2022 (Approximate), Expires: 2023Start: 42-99-8130Yqkxn depression screening assessment DEPRESSION SCREENINGTriHealth McCullough-Hyde Memorial Hospitaltart: 09-22-2022 End: 25-92-9299Szpbrdz function 2000 panel - Serum or PlasmaHEPATIC FUNCTION PNL Lab Routine Mixed hyperlipidemia Expected: 09/22/2022, Expires: 11/22/2022 [facility] Work Phone: Comment on above:Expected: 09/22/2022, Expires: 11/22/2022Start: 09-22-2022 End: 39-29-0692Nvkzz 1996 panel - Serum or PlasmaLIPID PANEL BASIC Lab Routine Mixed hyperlipidemia Expected: 09/22/2022, Expires: 11/22/2022[facility] Work Phone: Comment on above:Expected: 09/22/2022, Expires: 11/22/2022Start: 63-56-3097JOXP, Provider: SHERRY TAYLORI ULTRASOUND 01,[id number], Status: Pen, Time: 8:45 AMECHO, Provider: SHERRY TAYLORI ULTRASOUND 01,[id number], Status: Pen, Time: 8:45 AMProv[facility] Work Phone: Start: 47-40-9724VknxiqwdcvqCESEOXDPFHJEwnaptagi ClinicStart: 96-53-3164MRJKYGEXNQ CANCER SCREENINGCOLORECTAL CANCER SCREENING [facility] Hospitaltart: 09-08-2022 End: 56-61-5545Mbfyqmu [Mass/volume] in Serum or PlasmaCALCIUM TOTAL BLD Lab Routine Hyperparathyroidism (HCC) Expected: 09/08/2022, Expires: 11/08/2022 [facility] Work Phone: comment on above:Expected: 09/08/2022, Expires: 11/08/2022Start: 09-08-2022 End: 35-10-2791Vecydigqok.intact [Mass/volume] in Serum or PlasmaPTH INTACT BLD Lab Routine Hyperparathyroidism (HCC) Expected: 09/08/2022, Expires: 11/08/2022 [facility] Work Phone: comment on above:Expected: 09/08/2022, Expires: 11/08/2022Start: 01-29-4128AFKI ONLY, Provider: SHERRY TAYLORI NUCLEAR 01,[id number], Status: Pen, Time: 10:00 AMREST ONLY, Provider: SHERRY TAYLORI NUCLEAR 01,[id number], Status: Pen, Time: 10:00 AMMP-[facility] [place] [address] DO Work Phone: Start: 68-91-2175VTQJTRO DIRECTIVE DISCUSSIONADVANCE DIRECTIVE DISCUSSIONTriHealth McCullough-Hyde Memorial Hospitaltart: 95-61-5402UIHAKWEAQK ASSESSMENT DEPRESSION ASSESSMENTTriHealth McCullough-Hy[facility] Hospitaltart: 06-16-8987ZYFDCLXFW0, Provider: SHERRY HHVI NUCLEAR 01,[id number], Status: Pen, Time: 10:00 AMSTRESSNUC2, Provider: SHERRY HHVI NUCLEAR 01,[id number], Status: Pen, Time: 10:00 [facility] Work Phone: Start: 06-18-2022 End: 08-18-2022 reactive protein [Mass/volume] in Serum or PlasmaC-REACTIVE PROTEIN (CRP) Lab Routine Systemic lupus erythematosus, unspecified SLE type, unspecified organ involvement status (HCC) Expected: 06/18/2022, Expires: 08/18/2022[facility] Work Phone: Comment on above:Expected: 06/18/2022, Expires: 08/18/2022Start: 06-18-2022 End: 86-88-2985OPQ W Auto Differential panel - BloodCBC + DIFF Lab Routine Systemic lupus erythematosus, unspecified SLE type, unspecified organ involve ment status (HCC) Expected: 06/18/2022, Expires: 08/18/2022[facility] Work Phone: Comment on above:Expected: 06/18/2022, Expires: 08/18/2022Start: 06-18-2022 End: 32-28-1834Moppypcqoz C3 [Mass/volume] in Serum or PlasmaC3 COMPLEMENT BLD Lab Routine Systemic lupus erythematosus, unspecified SLE type, unspecified organinvolvement status (HCC) Expected: 06/18/2022, Expires: 08/18/2022[facility] Work Phone: Comment on above:Expected: 06/18/2022, Expires: 08/18/2022Start: 06-18-2022 End: 48-13-8624Bphgnljnqz C4 [Mass/volume] in Serum or PlasmaC4 COMPLEMENT BLD Lab Routine Systemic lupus erythematosus, unspecified SLE type, unspecified organinvolvement status (HCC) Expected: 06/18/2022, Expires: 08/18/2022[facility] Work Phone: Comment on above:Expected: 06/18/2022, Expires: 08/18/2022Start: 06-18-2022 End: 87-40-0150Fbelaxridxpia metabolic 2000 panel - Serum or PlasmaCOMP METABOLIC PANEL Lab Routine Systemic lupus erythematosus, unspecified SLE type, unspecified organ involvement status (HCC) Expected: 06/18/2022, Expires: 08/18/2022[facility] Work Phone: Comment on above:Expected: 06/18/2022, Expires: 08/18/2022Start: 06-18-2022 End: 78-45-2445Eirknkmxxgt sedimentation rateSED RATE WESTERGREN Lab Routine Systemic lupus erythematosus, unspecified SLE type, unspecified organ involvement status (HCC) Expected: 06/18/2022, Expires: 08/18/2022[facility] Work Phone: Comment on above:Expected: 06/18/2022, Expires: 08/18/2022Start: 06-18-2022 End: 20-34-5024Uvcibik/Creatinine [Mass Ratio] in UrinePROTEIN CREATININE RATIO Lab Routine Systemic lupus erythematosus, unspecified SLE type, unspecified organ involvement status (HCC) Expected: 06/18/2022, Expires: 08/18/2022 [facility] Work Phone: Comment on above:Expected: 06/18/2022, Expires: 08/18/2022Start: 06-18-2022 End: 16-14-2972Sgyqcnlbtd complete panel - UrineURINALYSIS, WITH MICROSCOPIC Lab Routine Systemic lupus erythematosus, unspecified SLE type, unspecified organ involvement status (HCC) Expected: 06/18/2022, Expires: 08/18/2022[facility] Work Phone: Comment on above:Expected: 06/18/2022, Expires: 08/18/2022Start: 06-11-2022 End: 28-73-6169Simykbcohbhih metabolic 2000 panel - Serum or PlasmaCOMP METABOLIC PANEL Lab Routine Hyperparathyroid (HCC) Expected: 06/11/2022, Expires: 08/11/2022[facility] Work Phone: Comment on above:Expected: 06/11/2022, Expires: 08/11/2022tart: 06-11-2022 End: 17-32-3854Kyozbhaiup.intact [Mass/volume] in Serum or PlasmaPTH INTACT BLD Lab Routine Hyperparathyroid (HCC) Expected: 06/11/2022, Expires: 08/11/2022 [facility] Work Phone: Comment on above:Expected: 06/11/2022, Expires: 08/11/2022tart: 04-18-2022 End: 69-01-4674FBOMA-LINK N-TELOPEPCUC [facility] Work Phone: Comment on above:Expected: 04/18/2022 (Approximate), Expires: 06/18/2022tart: 33-58-1709Eiytnbjir vaccinationINFLUENZA (#1)[facility] Hospitaltart: 03-20-2022 End: 33-60-0037Nkjxids [Mass/volume] in Serum or PlasmaCALCIUM TOTAL BLD Lab Routine 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) High risk medication use Expected: 03/20/2022, Expires: 05/20/2022 [facility] Work Phone: Comment on above:Expected: 03/20/2022, Expires: 05/20/2022tart: 70-61-3370IBE of headMR head/brain wo [facility]: 04-40-8115Xgvuchgv identified in Urine by CultureUrine [facility] Hospitaltart: 12-09-2021 End: 69-74-6537PYU double strand Ab [Units/volume] in Serum by Immunoassay [facility] Work Phone: comment on above:Expected: 12/09/2021 (Approximate), Expires: 02/08/2022tart: 12-09-2021 End: 02-50-8355Ywifjez/Creatinine [Mass Ratio] in UrineMercy Health Perrysburg Hospital Work Phone: comifze on above:Expected: 12/09/2021 (Approximate), Expires: 02/08/2022tart: 12-09-2021 End: 14-07-1276Pfuxesmlks complete panel - UrineMercy Health Perrysburg Hospital Work Phone: comment on above:Expected: 12/09/2021 (Approximate), Expires: 02/08/2022tart: 02-08-2022Medicare Annual Wellness VisitMedicare Annual Wellness VisitTriHealth McCullough-Hyde Memorial Hospitaltart: 59-96-9842JWZQE-19 VACCINE (3 - Booster for Iris series)COVID-19 VACCINE (3 - Booster for Iris series) [facility]tart: 92-35-5168ACIXGBJ DIRECTIVE DISCUSSIONADVANCE DIRECTIVE DISCUSSIONTriHealth McCull[facility]-Hy[facility] Hospitaltart: 08-34-0546YTSJDDGJNA ASSESSMENTDEPRESSION ASSESSMENTTriHealth McCullough-Hy[facility] Hospitaltart: 14-64-5191KYUALAALGZDF: 65+ (3 - PPSV23 if available, else PCV20)PNEUMOCOCCAL: 65+ (3 - PPSV23 if available, else PCV20) [facility]: 39-35-5979AXYDBCXDWGDE: 65+ (4 - PPSV23 if available, else PCV20)PNEUMOCOCCAL: 65+ (4 - PPSV23 if available, else PCV20)[facility]: 93-12-3360NYLKSPUEVKGF: 65+ (4 - PPSV23 or PCV20)PNEUMOCOCCAL: 65+ (4 - PPSV23 or PCV20)[facility] Hospitalt[facility]: 92-26-4746ASFQPELAE AGE 65 AND OVER WITH 5YR LOOKBACK (#1)PNEUMOVAX AGE 65 AND OVER WITH 5YR LOOKBACK (#1)[facility] Hospitaltart: 58-49-4080Bgboouynvq measurementCreatinine LevelGreene Memorial Hospital: 91-54-0498Yptpikcht measurementPotassium Level [facility]: 29-30-5432Rluvpod stimulating hormone measurementTSH LevelUniversity Hospitals of ClevelandStart: 67-43-0512RWGTXXHPO B (1 of 3 - Risk 3-dose series)HEPATITIS B (1 of 3 - Risk 3-dose series) [facility]: 54-88-7369Suvxyhgmv B Vaccine (1 of 3 - Risk 3-dose series)Hepatitis B Vaccine (1 of 3 - Risk 3-dose series)[facility]: 95-22-5803AJQ Vaccine (1 - 1-dose 60+ series)RSV Vaccine (1 - 1-dose 60+ series) [facility]: 44-63-3616ECCVCCKTV (FIT-DNA)COLOGUARD (FIT-DNA)[facility]: 55-34-4945CX COLONOGRAPHYCT COLONOGRAPHYTriHealth McCullough-Hyde Memorial Hospitaltart: 09-18-8493XOEDJ OCCULT BLOODFECAL OCCULT BLOODTriHealth McCullough-Hyde Memorial Hospitaltart: 02-17-2001 Screening for malignant neoplasm of colonTriHealth McCullough-Hyde Memorial Hospitaltart: 02-17-2001 SIGMOIDOSCOPYSIGMOIDOSCOPYTriHealth McCullough-Hyde Memorial Hospitaltart: 15-42-3040ZfqklwmvkacLLHCVUYNI [facility]: 46-16-1092XVdL/Tdap/Td Vaccines (1 - Tdap)DTaP/Tdap/Td Vaccines (1 - Tdap)[facility]: 72-82-2118VKfL,Tdap and Td Vaccines (1 - Tdap)DTaP,Tdap and Td Vaccines (1 - Tdap)[facility]: 66-98-5628ZNUPRFRRG A (1 of 2 - Risk 2-dose series)HEPATITIS A (1 of 2 - Risk 2-dose series)[facility]: 45-72-7272Jowiywqgf A Vaccine (1 of 2 - Risk 2-dose series)Hepatitis A Vaccine (1 of 2 - Risk 2-dose series) [facility]: 10-85-3252UPMWHLDYT B (1 of 3 - Risk 3-dose series) HEPATITIS B (1 of 3 - Risk 3-dose series)[facility]: 56-42-2622Ncizz microalbumin profileTriHealth McCullough-Hyde Memorial Hospitaltart: 56-79-3942Rjrnk BMI Follow Up Plan Adult BMI Follow Up PlanErlanger Western [facility] Hospitaltart: 09-15-2258WGUQMI PCP TEAM CHRONIC DISEASE VISITANNUAL PCP TEAM CHRONIC DISEASE VISITTriHealth McCullough-Hy[facility] Memorial Hospitaltart: 95-90-0378Sihccud ScreeningAnxiety ScreeningTriHealth McCullough-Hy[facility] Hospitaltart: 11-91-8241NI CONTROLLED (<130/80)BP CONTROLLED (<130/80)[facility]: 02-17-1973 Depression ScreeningDepression ScreeningGalion Hospitalrt: 02-17-1974 Diabetes mellitus screeningDiabetes ScreeningParma Community General [facility] Start: 68-35-9477Wiymlrlqf C screeningHepatitis C ScreeningMcCullough-Hyde Memorial Hospitalart: 83-02-0417DAT SCREENINGHIV SCREENINGTriHealth McCullough-Hy[facility] Hospitaltart: 92-94-1113SRU (1 of 2 - Risk 2-dose series)MMR (1 of 2 - Risk 2-dose series) [facility]: 82-07-8628FNB Vaccine (1 of 2 - Risk 2-dose series)MMR Vaccine (1 of 2 - Risk 2-dose series)[facility]: 07-34-4233Tiwqwhjsc for malignant neoplasm of cervixCervical Cancer ScreeningGalion Hospitalrt: 62-02-9212Wfangqwyzjqzu B Vaccine: Consider Based On Risk (1 of 4 - Increased Risk)Meningococcal B Vaccine: Consider Based On Risk (1 of 4 - Increased Risk) [facility]: 18-05-1569FYZGSOKMCMXOP B: Consider based on risk (1 of 4 - Increased Risk Bexsero 2-dose series)MENINGOCOCCAL B: Consider based on risk (1 of 4 - Increased Risk Bexsero 2-dose series)[facility]: 02[birth year]17-1965 MENINGOCOCCAL B: Consider based on risk (1 of 4 - Increased Risk)MENINGOCOCCAL B: Consider based on risk (1 of 4 - Increased Risk)[facility]: 91-71-0597GEPTWHEMH A (1 of 2 - Risk 2-dose series)HEPATITIS A (1 of 2 - Risk 2- dose series)[facility]rt: 60-73-5999Xuwuw panelLipid PanelGreene Memorial Hospital: 1956Medicare Annual Wellness VisitMedicare Annual Wellness Visit (AWV)[facility]: 1955 Screening for malignant neoplasm of colonGreene Memorial Hospital: 58-63-6849Krzgqfldg for osteoporosisBone Density Scaniversity Hospitals of ClevelandBacteria identified in Urine by CultureCleveland Clinic South Pointe [facility] Work Phone: End: 04-25-2026 difficile by [...] 6 Occurrences starting 03/13/2022 until 03/13/2023, 1 completed[facility] Work Phone: Comment on above:Every 4 months for 6 Occurrences starting 03/13/2022 until 03/13/2023, 1 completedCALCIUM 24 HR URINECALCIUM 24 HR URINE Lab Routine Osteopenia, unspecified location Vitamin D deficiency disease Serumcalcium elevated 04/22/2022 8:30 AM [facility] Work Phone: End: 01-80-8482Agcpoua mri for velocity flow mappingMRI CARDIAC VELOCITY FLOW MAP Radiology Routine Hypertrophic obstructive cardiomyopathy (HCC) 1 Occu rrences starting 03/27/2022 until 04/26/2023[facility] Work Phone: Comment on above:1 Occurrences starting 03/27/2022 until 04/26/2023 End: 54-87-9493Eahewnj mri w/wo contrast & further seqMRI CARDIAC MORPH FUNC WO/W IVCON Radiology Routine Hypertrophic obstructive cardiomyopathy (HCC) 1 Occurrences starting 03/27/2022 until 04/26/2023[facility] Work Phone: Comment on above:1 Occurrences starting 03/27/2022 until 04/26/2023 End: 90-27-8395SVM W Auto Differential panel - BloodCBC + DIFF Lab Routine Membranous lupus nephritis syndrome (HCC) High risk medication use Systemic l upus erythematosus, unspecified SLE type, unspecified organ involvement status (HCC) Every 4 monthsfor 6 Occurrences starting 03/13/2022 until 03/13/2023, 1 completedMer[facility] Work Phone: Comment on above:Every 4 months for 6 Occurrences starting 03/13/2022 until 03/13/2023, 1 completedClostridioides difficile toxin genes [Presence] in Stool by RAVIN with probe detectionC. DIFFICILE PCR Lab Routine Diarrhea, unspecified type Ordered: 2CUC [facility] Work Phone: Comseap on above:Ordered: 02/21/2022 End: 35-22-9631GKLHEMFONIA DIAGNOSTICCOLONOSCOPY DIAGNOSTIC Endoscopy Routine IBD (inflammatory bowel disease) 1 Occurrences starting [address] [place] [address] Work Phone: Comment on above:1 Occurrences starting 2023 until 02/19/2024 End: 32-17-1349Cnkwxipxfq C3 [Mass/volume] in Serum or PlasmaC3 COMPLEMENT BLD Lab Routine Membranous lupus nephritis syndrome (HCC) High risk medication use Systemic lupus erythematosus, unspecified SLE type, unspecified organ involvement status (HCC) Every 4months for 6 Occurrences starting 03/13/2022 until 03/13/2023, 1 conXtMercy Health [facility] Hospital Work Phone: Comment on above:Every 4 months for 6 Occurrences starting 03/13/2022 until 03/13/2023, 1 completed End: 31-81-7981Bjfnebwbeh C4 [Mass/volume] in Serum or PlasmaC4 COMPLEMENT BLD Lab Routine Membranous lupus nephritis syndrome (HCC) High risk medication use Systemic lupus erythematosus, unspecified SLE type, unspecified organ involvement status (HCC) Every 4months for 6 Occurrences starting 03/13/2022 until 03/13/2023, 1 conXtMercy Health [facility] Hospital Work Phone: Comment on above:Every 4 months for 6 Occurrences starting 03/13/2022 until 03/13/2023, 1 completed End: 89-40-4164Jzohpndchsedz metabolic 2000 panel - Serum or PlasmaCOMP METABOLIC PANEL Lab Routine Membranous lupus nephritis syndrome (HCC) High risk medication useSystemic lupus erythematosus, unspecified SLE type, unspecified organ involvement status (HCC) Every 4 months for 6 Occurrences starting 03/13/2022 until 03/13/2023, 1 completedMer[facility] Work Phone: Comment on above:Every 4 months for 6 Occurrences starting 03/13/2022 until 03/13/2023, 1 completedCREATININE 24 HR URCREATININE 24 HR UR Lab Routine Osteopenia, unspecified location Vitamin D deficiency disease Serumcalcium elevated 04/22/2022 8:30 AM [facility] Work Phone: End: 19-23-1571YJ Foot - left WO contrastCT FOOT WO IVCON LEFT Radiology Routine Closed fracture of left foot, initial encounter 1 Occurrences starting 01/23/2025 until 02/22/2026[facility] Work Phone: Comment on above:1 Occurrences starting 01/23/2025 until 02/22/2026 End: 32-52-8601ML watchman full [facility] Work Phone: Comment on above:Once for 1 Occurrences starting 08/15/2024 until 4Dxa bone density study 1/> sites axial skelDXA-AXIAL SKELETON Radiology Routine Asymptomatic postmenopausal status 03/13/2022 3:21 PM [facility] Work Phone: End: 74-25-2813XAI Skeletal system.axial Views for bone density and vertebral fractureDXA-AXIAL SKELETON WITH VFA Radiology Routine Osteopenia, unspecified location S/P parathyroidectomy emt intermediate (current) use of 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 Vitamin D deficiency disease 1 Occurrences starting 10/13/2023 until 11/11/2024 [facility] Work Phone: Comment on above:1 Occurrences starting 10/13/2023 until 11/11/2024ECG 12 LeadECG 12 Lead ECG Routine Paroxysmal atrial fibrillation (CMS/HCC) 11/09/2023 8:58 AM [facility] Work Phone: ecg 12 LeadECG 12 Lead ECG Routine Pre-operative clearance 01/27/2025 8:[address] [facility] Work Phone: ecg 12 lead (Clinic Performed)ECG 12 lead (Clinic Performed) ECG Routine Paroxysmal atrial fibrillation (CMS/HCC) Atypical atrial flutter (CMS/HCC) 11/16/2023 3:[address] [facility] Work Phone: ecg 12 lead (Clinic Performed)ECG 12 lead (Clinic Performed) ECG Routine Paroxysmal atrial fibrillation (Multi) 02/15/2024 4:[address] [facility] Work Phone: ecg 12 lead (Clinic Performed)ECG 12 lead (Clinic Performed) ECG Routine Paroxysmal atrial fibrillation (Multi) 05/16/2024 4:[address] [facility] Work Phone: End: 46-34-7377RQS COMPLETEECG COMPLETE ECG Routine Hypertrophic obstructive cardiomyopathy (HCC) 1 Occurrences starting 03/27/2022 until 03/27/2023[facility] Work Phone: Comment on above:1 Occurrences starting 03/27/2022 until 03/27/2023 End: 33-95-2866SobqzogfkyixiiskGJIK Cardiology Routine Hypertrophic obstructive cardiomyopathy (HCC) 1 Occurrences starting 03/27/2022 until 03/27/2023[facility] Work Phone: Comment on above:1 Occurrences starting 03/27/2022 until 03/27/2023Electrophysiology studyElectrophysiology procedure Electrophysiology Routine Persistent atrial fibrillation (Multi) Atypical atrial flutter (Multi) 01/05/2024 2:[address] [facility] Work Phone: End: 73-98-4856Qbuvkgoslmaujtboi [facility] Work Phone: Comment on above:Once for 1 Occurrences starting 03/22/2024 until 03/22/2024ENTERIC BACTERIAL PANEL BY PCRENTERIC BACTERIAL PANEL BY PCR Lab Routine Diarrhea, unspecified type [facility]: Comment on above:Ordered: 02/21/2022 End: 57-61-6495Qvbveatjzuz sedimentation rateSED RATE WESTERGREN Lab Routine Membranous lupus nephritis syndrome (HCC) High risk medication use Systemic lupus erythematosus, unspecified SLE type, unspecified organ involvement status (HCC) Every4 months for 6 Occurrences starting 03/13/2022 until 03/13/2023, 1 [facility] Work Phone: Comment on above:Every 4 months for 6 Occurrences starting 03/13/2022 until 03/13/2023, 1 completedGiardia lamblia+Cryptosporidium sp Ag [Presence] in Stool by ImmunoassayCRYPTOSPORIDIUM AND GIARDIA ANTIGENS BY EIA Microbiology Routine Diarrhea, unspecified type Ordered: 02/21/2022 [facility] Work Phone: Comment on above:Ordered: 02/21/2022Lipid 1996 panel - Serum or PlasmaLipid profile Lab Routine Mixed hyperlipidemia 03/30/2024 7:48 PM [facility] End: 35-16-4558Gtyjx panelLipid panel Lab Routine Mixed hyperlipidemia 1 Occurrences starting 03/30/2024 until 03/30/2025[facility] Occurrences starting 03/30/2024 until 03/30/2025 End: 90-95-0875PA Biliary ducts and Pancreatic duct WO and W contrast IVMRI PANC/JEANIE WO/W IVCON Radiology Routine Pancreatic cyst 1 Occurrences starting 09/30/2023 until 5[facility] Work Phone: comment on above:1 Occurrences starting 09/30/2023 until 10/29/2024 End: 99-02-2016LL Unspecified body region 3D post processingMRI 3D POST PROCESSING Radiology Routine Pancreatic cyst 1 Occurrences starting 09/30/2023 until 5[facility] Work Phone: comment on above:1 Occurrences starting 09/30/2023 until 10/29/2024 End: 12-04-2068Sdsjmpaqmkl imaging w/tomographic spect & ctNM PARATHYROID W SPECT/CT Radiology Routine Hyperparathyroidism (HCC) 1 Occurrences starting 07/01/2022 until 3[facility] Work Phone: comment on above:1 Occurrences starting 07/01/2022 until 3[facility] Work Phone: Patient referralKind[facility] Work Phone: Renal function 2000 panel - Serum or PlasmaRENAL FUNCTION PANEL Lab Routine Paroxysmal atrial fibrillation (HCC) Epistaxis Preoperative examination, unspecified 08/11/2024 10:[address] [facility] SARS-CoV-2 (COVID-19) N gene [Presence] in Respiratory specimen by RAVIN with probe detectionKindred Hospital Lima Ctr Work Phone: [phone]-IyI-2 (COVID-19) RNA [Presence] in Respiratory specimen by RAVIN with probe detectionPRE-PROCEDURE & PRE-OPERATIVE COVID Microbiology Routine Encounter for prophylactic measures, unspecified Ordered: 2[facility] Work Phone: Comment on above:Ordered: 03/06/2022 End: 24-59-6873Cvw minute walkSix minute walk Respiratory Care Routine Dyspnea on exertion 1 Occurrences starting 10/11/2024 until 10/11/2025[facility] Work Phone: Comment on above:1 Occurrences starting 10/11/2024 until 10/11/2025[facility] PATH[facility]YMer[facility] Work Phone: Comment on above:Release Upon Ordering for 1 Occurrences starting 04/02/2023, 1 completed End: 09-03-7712Pfrmrhl profile includes TSH RX1Jecavpu profile includes TSH FT4 Lab Routine Acquired hypothyroidism 1 Occurrences starting 03/30/2024 until 03/30/2025[facility] MichiganComment on above:1 Occurrences starting 03/30/2024 until 03/30/2025Thyroid profile includes TSH TB4Tmelysf profile includes TSH FT4 Lab Routine Acquired hypothyroidism 03/30/2024 7:48 PM EDT [facility] End: 88-88-4023Vzdorgvfty complete panel - UrineURINALYSIS, WITH MICROSCOPIC Lab Routine Membranous lupus nephritis syndrome (HCC) High risk medication use Systemic lupus erythematosus, unspecified SLE type, unspecified organ involvement status (HCC) Every 4 months for 6 Occurrences starting 03/13/2022 until 03/13/2023[facility] Work Phone: Comment on above:Every 4 months for 6 Occurrences starting 03/13/2022 until 03/13/2023 End: 30-92-0931[facility] Work Phone: Comment on above:Once for 1 Occurrences starting 09/12/2024 until 09/12/2024 End: 18-72-9069JL Kidney - bilateral and Urinary bladderUS KIDNEY/BLADDER Radiology Routine Membranous glomerulonephritis 1 Occurrences starting 12/29/2023until 5[facility] Work Phone: Comment on above:1 Occurrences starting 12/29/2023 until 01/27/2025US Kidney - bilateral and Urinary bladderUS KIDNEY/BLADDER Radiology Routine Membranous glomerulonephritis 03/28/2024 11:57 AM [facility] Work Phone: us THYROID/PARATHYROID (POC) ENDO USE ONLYUS THYROID/PARATHYROID (POC) ENDO USE ONLY Imaging Diagnostic Routine Primary hyperparathyroidism (HCC) Ordered: 2[facility] Work Phone: comment on above:Ordered: 07/07/2022 End: 95-30-0460CP Foot - right AP and Lateral and obliqueXR FOOT GENERAL 3V AP/LAT/OBL RIGHT Radiology Routine Pain in right foot 1 Occurrences starting 12/19/[address] [place] [address] Work Phone: Comment on above:1 Occurrences starting 12/19/2024 until 01/18/2026 End: 00-38-0571SP Foot - right AP and Lateral and obliqueXR FOOT GENERAL 3V AP/LAT/OBL RIGHT Radiology Routine Sprain of right foot, initial encounter Closed nondisplaced fracture of navicular bone of right foot, initial encounter Osteoarthritis of midtarsal joint of right foot 1 Occurrences starting 12/21/[address] [place] [address] Work Phone: Comment on above:1 Occurrences starting 12/21/2024 until 01/20/2026 End: 25-85-6063GA Foot - right AP and Lateral and obliqueXR FOOT GENERAL 3V AP/LAT/OBL RIGHT Radiology Routine Charcot arthropathy 1 Occurrences starting 04/18/2025 until 05/18/2026[facility] Work Phone: Comment on above:1 Occurrences starting 04/18/2025 until 05/18/2026 End: 89-06-4104SL FOOT GENERAL 3V AP/LAT/OBL LEFTXR FOOT GENERAL 3V AP/LAT/OBL LEFT Radiology Routine Pain in left foot 1 Occurrences starting 07/02/2023 until 07/31/2024[facility] Work Phone: Comment on above:1 Occurrences starting 07/02/2023 until 07/31/2024 End: 04-94-8399EQ Knee - left 4 ViewsXR KNEE GENERAL 4V AP BOTH/PA BOTH/LAT/MERC LEFT Radiology Routine Osteopenia of multiple sites S/Pparathyroidectomy emt intermediate (current) use of 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 Acute pain of left knee 1 Occurrences s tarting 03/15/2024 until 5[facility] Work Phone: Comment on above:1 Occurrences starting 03/15/2024 until 04/14/2025XR Knee - left 4 ViewsXR KNEE GENERAL 4V AP BOTH/PA BOTH/LAT/MERC LEFT Radiology Routine Osteopenia of multiple sites S/P parathyroidectomy alf (current) use of 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 Acute pain of left knee 03/15/2024 3:40 PM [facility] Immunizations Immunization DateImmunizationNotesCare BqjaemgiTjapkste64-99-9330Bqtjcmbs trivalent influenza vaccine, adjuvanted, preservative freeDennis Furlong DO Work Phone: [facility] HospitalDnoiof17-44-6045Fyhchwzdtwqa, In Clinic,; Translations: [Drug or medicament (substance)]Wojciech Treviño DO Work Phone: [facility] HospitalVswfdr25-36-1251iikhcdhld virus vaccine, unspecified formulationWojciech Treviño DO Work Phone: [facility] HospitalUxunks01-25-7811uhnuxapsz, seasonal, injectableYuriy Conway MD Work Phone: [facility]02-01-2024influenza (HD-IIV4) vaccine, age 65+ yr, high dose, quadrivalent, PF (FLUZONE HIGH-DOSE) Obdulia Ann PA-C Work Phone: [facility] HospitalJhvcaw55-23-4568hagsnyctaxf syncytial virus (RSV) vaccine, adjuvanted (AREXVY)Obdulia Ann PA-C Work Phone: [facility] HospitalTbfsok95-55-5923ehtnntyvp virus vaccine, unspecified formulationCharmaine Vincent PIPE PROCESSOR-JEWELRY MAKER Work Phone: [phone] Work Phone: [phone]xmird Conjugate, unspecified formulationNadege Murphy DO Work Phone: [phone] Work Phone: [phone]qetew (PCV20) vaccine, 20 valent (PREVNAR 20)Nadege Bianchijohn DO Work Phone: [phone] HospitalViaszn69-68-3741cqtxseyho nasal, unspecified formulationObdulia Ann PA-C Work Phone: [phone] HospitalUwizkx54-90-5003ycxfgmkbt, high-dose, quadrivalent vaccine (FLUZONE HIGH DOSE QUADRIVALENT)[facility] 2 Work Phone: [facility] HospitalEhlgkx29-94-8559mustwbgtd virus vaccine, unspecified formulationHeather Gruber PA-C Work Phone: [facility] HospitalRknvjk77-47-7466Tvcztsf COVID-19 Vaccine 100 MCG/0.5ML Intramuscular SuspensionDennis G Furlong Work Phone: [phone]-WtjbvNorth Valley Health Center 250 DO Work Phone: [phone]bt, high-dose, quadrivalent vaccine (FLUZONE HIGH DOSE QUADRIVALENT)Dione Frances MD Work Phone: [facility] HospitalQnsdsg23-22-1480Vkiazgl COVID-19 Vaccine 0.5 ML Intramuscular SuspensionDennis G Furlong Work Phone: [phone]-HlnrkNorth Valley Health Center 250 DO Work Phone: [phone], injectable, quadrivalent, contains preservativeDione Frances MD Work Phone: [facility] HospitalHhimiq04-68-0737cdnnjf vaccine recombinant Dione Frances MD Work Phone: [facility] HospitalWtlria63-36-5100rlodgb vaccine recombinant Dione Frances MD Work Phone: [facility] HospitalPkojqx15-43-5878cewlmuqkf, injectable, quadrivalent, preservative freeDione Frances MD Work Phone: [facility] Work Phone: [phone], seasonal, injectableDennis Furlong DO Work Phone: [facility] HospitalJspacy84-47-1102gzxfgiohh, injectable, quadrivalent, contains preservativeDione Frances MD Work Phone: [facility] HospitalBforrg39-08-5064gwarzbxui, injectable, quadrivalent, contains preservativeDione Frances MD Work Phone: [facility] HospitalPasvux69-73-4228lmnrkredb nasal, unspecified formulationObdulia Ann PA-C Work Phone: [facility] HospitalNqqcaf42-20-8706qswwihnzy virus vaccine, unspecified formulationDennis Furlong DO Work Phone: [facility] HospitalHhwsmb15-44-6620shrhqhpux, injectable, quadrivalent, preservative freeLeeannrashard Bianchijohn DO Work Phone: [facility] HospitalYmjubw45-98-1709ylkrcwnxe, seasonal, injectable, preservative Hillary Frances MD Work Phone: [facility] HospitalOnwvpd46-99-6217srzwtotyvwmo polysaccharide vaccine, 23 Florian Frances MD Work Phone: [facility] HospitalGwipcx54-28-1379njyiizmtqrnh conjugate vaccine, 13 Florian Frances MD Work Phone: [facility] Work Phone: [phone]eesuszn polysaccharide vaccine, 23 Florian Frances MD Work Phone: [facility] Work Phone: [phone]sj nasal, unspecified formulation Obdulia Ann PA-C Work Phone: [facility] HospitalJeohfh28-60-1389yxiuwvfeu virus vaccine, unspecified formulationDennis Furlong DO Work Phone: [facility] HospitalTctvdy92-59-0782ngvmdxijl, seasonal, injectable, preservative Hillary Frances MD Work Phone: [facility] Work Phone: [phone]xp, injectable, quadrivalent, preservative Hillary Frances MD Work Phone: [facility] Work Phone: [phone]za, seasonal, injectableDione Frances MD Work Phone: [facility] HospitalAkzkyn72-57-9901ecqdvznbi virus vaccine, unspecified formulationDione Frances MD Work Phone: [facility] HospitalPrxtxr21-91-7745kzfucoosh virus vaccine, unspecified formulationDione Frances MD Work Phone: [facility] Work Phone: [phone]zyhh virus vaccine, unspecified formulationDione Frances MD Work Phone: [facility] HospitalYmjqay46-91-2299uxpakrvky virus vaccine, unspecified formulationDione Frances MD Work Phone: [facility] HospitalJlmuiu31-43-7334qpfqaijrsrze polysaccharide vaccine, 23 valentDione Frances MD Work Phone: [facility] Payers DatePayer CategoryPayerPolicy [id number] [id number] Care Other (unspecified) [id number] 89-73-0232Mqyhyjpelnelv or OtherMUTUAL [facility] 1.2.840.666468.1.13.647.2.7.9.065820.109146.82668-03-7951Fegunhu923435-55 3ob38j44-pf45-29l5-9725-69p34929kb8905-69-5047Rbxexbm Health Insurance [id number] OF [place] MUTUAL [place] MEDIC[place] SUPPLEMENT [id number] 2020-[facility] [phone] [address] [place] [address] [id number] 1.2.840.940962.1.13.159.2.7.3.449465.315 [id number] 1.2.840.451258.1.13.159.2.7.3.116567.315 2015Medicare 1.2.840.211446.1.13.159.2.7.3.508580.89463-66-6610Qmcalmg 1.2.840.929626.1.13.159.2.7.3.453554.315 [id number]68974986-85-5766Dvlsxno [id number] 2.0.1.239102.3.579.2.98057-16-5497Yaijyhj65389511 2.0.1.754055.3.57[id number] 2.0.1.029183.3.579.[id number] 2.840.1.332187.3.579.2.693753-07-7269Uddpzeb16208218 2.840.1.054097.3.579.2.433424-96-8558Synxeem4760259 2.16.840.1.860965.3.579.2.16950-51-0477Uqfnikh8430000 2.16.840.1.687846.3.579.2.38511-49-9492Jozauaq8166334 2.16.840.1.548546.3.579.2.04784-53-6550Efbcqnl6177534 2.16840.1.500435.3.579.2.377393-52-3102Iyyvzru1618322 2.16840.1.436038.3.579.2.021192-94-2394Xekfwwl644093 2.16840.1.697777.3.579.2.343427-09-9339Btvajjo96261114 2.0.1.946549.3.579.2.300110-36-5015Bazjupw45069956 2.840.1.582550.3.579.2.110288-47-3462Uybzask42556205 2.0.1.046838.3.579.2.378402-24-2947Utsqies22956330 2.0.1.222481.3.579.2.417340-36-9790Sgpqsyj95581412 2.16840.1.939107.3.579.2.533900-80-1319Jcvufde56624031 2.16840.1.568195.3.579.2.169873-29-3472Puksfct35531271 2.16840.1.710777.3.579.2.034576-96-7073Qthzgfo33463353 2.16840.1.597176.3.579.2.953714-02-3670Ahcsjox61539217 2.16840.1.959454.3.579.2.913511-41-7162Lfcoktu56922212 2.840.1.425234.3.579.2.112200-57-1618Kpsizqt1221237 2.840.1.242286.3.579.2.319694-04-1874Wffuisq934137324 2.16840.1.199238.3.579.2.627357-16-7969Fetrada155056691 2.0.1.214045.3.579.2.511906-96-1506Lgzwckd434324365 2.0.1.627860.3.579.2.071553-54-2613Eirqwcn692216710 2.0.1.858183.3.579.2.463377-47-1117Skqvfdc74511546 2.0.1.020744.3.579.2.980583-65-2039Bpvqelk67038486 2.0.1.115591.3.579.2.962325-54-9449Xemutpj62817412 2..1.179667.3.579.2.646738-22-9106Ncnyopx75128709 2.840.1.921711.3.579.2.912539-36-0310Qmvfbrz51143200 2.0.1.810631.3.579.2.527096-65-9285Bjxdpab878285651 2.840.1.292024.3.579.2.443355-73-1678Oqililr335521280 2.840.1.386594.3.579.2.744610-38-1654Zuoxaqt952104160 2.16.840.1.483760.3.579.2.247144-75-3070Skqdhxm813933258 2.16.840.1.625972.3.579.2.1244MedicareMedicare-OP No Part [id number] Health InsuranceAetWestern Medical Center [id number] 2.16.840.1.256236.3.579.2.711Anxhtyb03687823 2.16.840.1.772171.3.579.2.531 Qxmrqxh48252626 2.16.840.1.331771.3.579.2.617Zhwejof89040562 2.16.840.1.551157.3.579.2.531 Social History DateTypeDetailFacilityStart: 02-07-2022 End: 55-44-7255Xcxxtta smoking status NHISNever smoked tobaccoOhiohealth Shelby Hospital Start: 10-29-2021 End: 79-65-0390Uticvlq intakeCurrent drinker of alcohol (finding)[facility]tart: 26-28-9809Ikuprje SDOH Alcohol Avlkabtxy5Rbfvoddax ClinicStart: 73-47-6397Inpfqsv SDOH Alcohol Commentvery rareTriHealth McCullough-Hyde Memorial Hospitaltart: 1955 Sex Assigned At BirthFemaleCC[facility] Work Phone: Start: 03-27-2020 End: 54-40-1309Obtxlqce to SARS-CoV-2 (event)Not sureTriHealth McCullough-Hyde Memorial Hospitaltart: 09-02-2017 End: 57-40-6686Iwwyqoz use and exposureSmokeless tobacco non-userTriHealth McCullough-Hyde Memorial Hospitaltart: 07-11-2020 End: 58-18-0591Sn illicit drug useNo illicit drug useOhiohealth Shelby Hospital Work Phone: Start: 07-11-2020 End: 32-87-3271Wyxgzny Use Disorder Identification Test - Consumption [AUDIT-C] [facility] Work Phone: How often to you have a drink containing alcohol? Monthly or lessOhiohealth Shelby Hospital Work Phone: Start: 95-78-4735Rarviyu Number of DrinksNot on file [facility] Hospitaltart: 06-77-7748Kkirqc identityIdentifies as female gender (finding)[facility] Work Phone: Start: 51-44-7849Fqrtqm orientationHeterosexual (finding)[facility] Work Phone: Start: 57-90-4290Ppwksyy CommentseldomOhiohealth Shelby Hospital Start: 08-27-2023 End: 45-68-0072Dcaowjk intakeLifetime non-drinker (finding)[facility] Work Phone: Start: 24-58-4282Wjw Assigned At BirthNot on file [facility] Work Phone: Start: 87-03-8704Bxelbqh Commentcaffeine: noneNOShriners Hospitals for ChildrenStart: 05-19-2024 End: 88-50-5742Enyzbfyfg beverage intakeCurrent non-drinker of alcohol (finding) [facility] TriOviz SystemHas the MyFitnessPal, gas, oil, or water [employer] threatened to shut off services in your [...] time - these days [OSQ]Only a little [facility] Cent[facility] TriOviz SystemStart: 27-04-0889Nfgjhbohr67LiyJmqmiu TriOviz SystemStart: 03-22-2015 End: 27-54-6193EgqFzyqwq (finding)[facility] SystemHow hard is it for you to pay for the very basics like food, housing, medical care, and heatingNot very hardProMary Starke [facility] TriOviz SystemStart: 03-20-2025 End: 46-41-9114Llyxzyesr beverage intakeEx-drinker (finding)[facility] (I/We) worried whether (my/our) food would run out before (I/we) got money to buy more.Never trueOhiohealth Shelby HospitalNEGATED: Highlighted rowStart: NINFHistory of tobacco usePassive smokerOhiohealth Shelby Hospital Medical Equipment Procedure CodeEquipment CodeEquipment Original TextEquipment IdentifierDates Trident X3 Polyethylene Insert 0deg 36mm Sz [id number]: 85-52-8676Ybid Accolade Ii 5 132d Femoral - [id number]_bcuKhsun: 84-50-4251Cgchh Trident Ii 52mm E Tritanium Acetabular 5 Screw Hole Cluster Sterile - [id number]_impStart: 18-88-8025Rubp V40 36mm 0mm Offset Taper Biolox Delta Femoral Hip - [id number]_vwwKxgwt: 02-07-8165Cbliu 3d Lck Variax Bn Rt Ft - [id number]_ewqFzfrd: 05-09-3158Qffym Bn 4mm 32mm Autofx - [id number]_impStart: 95-18-6627Eawso 3.0x38 Autofix - [id number]_zhvPcdtg: 15-27-4227Hpptj Bn 3.5mm 16mm Variax Ft - [id number]_iosAksie: 04-03-2014 Screw Bn 3.5mm 14mm Variax Ft - [id number]_xioQhnlf: 94-12-6235Jptij Bn 3.5mm 12mm Variax Ft - [id number]_hexJvjev: 71-34-9756Gtgze Trident Ii 6.5mm 25mm Bone Low Profile Hexagonal Sterile - [id number]_hbpZcjaw: 16-05-2280Hzzg Fix .062in 9in Krsh Ss - [id number]_sroWuedg: 04-03-2014 Device, Closure, 40mm Watchman Flx Pro Laac - [id number]_odfUlszr: 55-04-5068Opnqm Triad 5cc - [id number]_obaUtwkp: 34-62-5227Vfyzl Bn Augment Inj 3.0cc - [id number]_jjqCuzdt: 60-80-8791Rfbtei Column Fusion Plate Lg Ortholoc 3di Plating - [id number]_ygvFnfmj: 30-82-8042Bxqtl Ortholoc 3.5mm Full Thread Purple 22mm Bone 3di Technology Polyaxial - [id number]_imhNnsrv: 62-92-4157Jofkf Ortholoc 3.5mm Full Thread Purple 24mm Bone 3di Technology Self - [id number]_payEtarn: 72-22-6386Flrge Bone 8mm 85mm Asnis Iii Titanium Fully Threaded Cannulated Self - [id number]_impStart: 89-85-9421Tkemdsuo 3di Screw Abdulkadir [id number]_impStart: 17-99-2925Yqocv Ans3 25 Thrd Ti 8.0x [id number]_impStart: 68-46-2193Iecsc Ortholoc 3di 3.5mm Bronze 38mm Bone Low Profile Self Tapping Threaded - [id number]_gboQlitd: 28-89-9465Ysrdg Ortholoc 3.5mm Full Thread Low Profile Bronze 40mm Bone 3di - [id number]_okvErpcu: 69-84-1291Oekfi Ortholoc 3.5mm Full Thread Purple 16mm Bone 3di Technology Self - [id number]_impStart: 81-41-8257Zkiod Ortholoc 3di 3.5mm Full Thread Low Profile Purple 18mm Bone Lock Over - [id number]_jcwQafel: 55-30-4374Vhovw Ortholoc 3.5mm Full Thread Purple 20mm Bone 3di Technology Lock - [id number]_impStart: 21-79-6853Yrhkkmcd Staple 25x20 Nitinol 2-[id number]_unzIkpyx: 04-03-2025 Goals DatePatient GoalDesired Activity/State Functional Status NdgrMlcavpjfktJaqpdmTgblxucd02-31-0292Plu you deaf, or do you have serious difficulty hearingNo 04/04/2025 3:25 PM EDT Isabella Best RN [facility] CampusTxfvgk60-99-8555Fcy you blind, or do you have serious difficulty seeing, even when wearing glassesNo 04/04/2025 3:25 PM EDT Isabella Best RN [facility]08-19-2025Do you have serious difficulty walking or climbing stairsNo 04/04/2025 3:25 PM EDT Isabella Best RN [facility]08-19-2025Do you have difficulty dressing or bathingNo 04/04/2025 3:25 PM EDT Isabella Best RN [facility] CampusWmdeiy91-73-1312Axizbqs of a physical, mental, or emotional condition, do you have difficulty doing errands alone such as visiting a physician's office or shoppingNo 04/04/2025 3:25 PM EDT Isabella Best RN [facility]01-12-2023Are you deaf, or do you have serious difficulty hearingNo 08/28/2022 10:02 AM Sravani Ramirez RN [facility] [id number] you blind, or do you have serious difficulty seeing, even when wearing glassesNo 08/28/2022 10:02 AM Sravani Ramirez RN [facility]01-12-2023Do you have serious difficulty walking or climbing stairsNo 08/28/2022 10:02 AM Sravani Ramirez RN [facility]01-12-2023Do you have difficulty dressing or bathingNo 08/28/2022 10:02 AM Sravani Ramirez [facility] [id number] of a physical, mental, or emotional condition, do you have difficulty doing errands alone such as visiting a physician's office or shoppingNo 08/28/2022 10:02 AM Sravani Ramirez [facility] [id number] [facility] Work Phone: [phone] statusPatient Not at Baseline [facility] Work Phone: Mental Status Bfpb[id number] of a physical, mental, or emotional condition, do you have serious difficulty concentrating, remembering, or making decisionsNo 04/04/2025 3:25 PM EDT Isabella Best RN [id number] of a physical, mental, or emotional condition, do you have serious difficulty concentrating, remembering, or making decisionsNo 08/28/2022 10:02 AM Sravani Ramirez RN [facility]06-26-2022 Cognitive functionCognitive Status [facility] Work Phone: [phone] functionCognitive Status Patient Not at [facility] Work Phone: Clinical Notes 10-14-2017 to 06-26-2025 Note Date & [id number] NoteC[facility]11-05-2025 NoteC[facility]11-05-2025 NoteC[facility] 06-21-2025 NoteC[facility]10-14-2025 NoteC[facility]10-08-2025 NoteC[facility]10-02-2025 NoteC[facility]10-01-2025 NoteC[facility]10-01-2025 Note [facility]10-01-2025 Miscellaneous Notes* Telephone Encounter - Wojciech Treviño [...] Okay that is fine. [facility] Telephone encounter Note* Telephone Encounter - Wojciech Treviño DO - 05/17/2025 7:18 AM EDT Rx sent in. Due for his thyroid/CV recheck. Please set up [facility]10-01-2025 Telephone encounter Note* Telephone Encounter - Kayden Ogden CMA - 05/17/2025 7:18 AM EDT I got pt scheduled for Nov- She is currently in a cast up to her knee. She is not very mobile at this time. [facility]10-01-2025 Telephone encounter Note* Telephone Encounter - Wojciech Treviño DO - 05/17/2025 7:18 AM EDT Okay that is fine. [facility]09-17-2025 NoteC[facility]09-17-2025 History of Present illness Narrative* Shae Koch [...] cast.. Shae Koch LPN documented in this encounterOhio[facility]09-17-2025 NoteC[facility]09-17-2025 History of Present illness Narrative* Fercho Prather [...] Dr. Hall. X-ray prior. documented in this encounterOhiohealth [facility] Hospital09-10-2025 Telephone encounter Note * Telephone Encounter - Bang Spears RN - 04/26/2025 1:09 PM EDT Please review Phone encounter 04/26/2025. Bang Spears RN [facility]09-10-2025 Miscellaneous Notes* Telephone Encounter - Bang Spears RN - 04/26/2025 1:09 PM EDT Please review Phone encounter 04/26/2025. Bang Spears RN documented in this encounterOhiohealth Shelby Hospital09-10-2025 Telephone encounter Note * Telephone Encounter [...] better. Pt verbalized understanding. Bang Spears RN [facility]09-10-2025 Miscellaneous Notes* Telephone Encounter - Bang [...] requesting call back from Bang to discuss. documented in this encounterOhiohealth Shelby Hospital09-10-2025 Telephone encounter Note * Telephone Encounter - Elizabeth Doyle - 04/26/2025 10:25 AM EDT Patient had Taco Mcallister and since then she's been having diarrhea, stomach cramping, headache. Her PCP ordered C-diff test. It was negative. Patient asking what she can do? Patient requesting call back from Bang to discuss. [facility]09-02-2025 Telephone encounter Note* Telephone Encounter - Doreen Ashby RN - 04/18/2025 1:40 PM EDT I left a message for Jesus just now to help schedule a one week wound check appointment with either JOSEPH Chiu at [facility] on 04/[address] Hall at [facility] on 04/24 (afternoon add-on). Fercho had one late afternoon slot left on 04/25. I will wait for her call. Doreen Ashby RN [facility]09-02-2025 Miscellaneous Notes* Telephone Encounter - Doreen Ashby RN - 04/18/2025 1:40 PM EDT I left a message for Jesus just now to help schedule a one week wound check appointment with either JOSEPH Chiu at [facility] on 04/[address] Hall at [facility] on 04/24 (afternoon add-on). Fercho had one late afternoon slot left on 04/25. I will wait for her call. Doreen Ashby RN documented in this encounterOhiohealth Shelby Hospital09-02-2025 NoteHNO ID: [id number] Author: NICHOLAS ARBOLEDA MA Service: ? Author Type: Principal Research Economist Type: Progress Notes Filed: 04/18/2025 13:33 Note Text: PT ASSESSMENT - CASTING ROOM [facility] presents for Application of cast. Applied short cast: to Right leg Patient has been instructed in Care of cast.. Nicholas Arboleda [facility]09-02-2025 History of Present illness Narrative * Nicholas Arboleda MA - 04/18/2025 1:31 PM EDT PT ASSESSMENT - CASTING ROOM [facility] presents for Application of cast. Applied short cast: to Right leg Patient has been instructed in Care of cast.. Nicholas Arboleda MA documented in this encounterOhiohealth Shelby Hospital09-02-2025 NoteHNO ID: [id number] Author: FERCHO PRATHER PA-C Service: ? Author Type: Physician Beck Operator Type: Progress Notes Filed: 04/18/2025 12:49 Note [...] Follow-up: 1-2 weeks for wound check. JO[facility]PH [facility]09-02-2025 History of Present illness Narrative* Fercho Prather [...] check. Fercho Prather PA-C documented in this encounterOhiohealth Shelby Hospital08-19-2025 NoteHNO ID: [id number] Author: MAKENZIE BRAY LISW Service: Care Management Author Type: Seam Press Operator Type: Care Mgt Progress Note Filed: [...] Wolf DATE: April 04, 2025 TIME: 4:05 [facility]08-19-2025 NoteHNO ID: [id number] Author: TAMIKO AUGUSTIN RN Service: Care Management [...] the process utilized to ensure compliance with [facility] policy regarding Inpatient Admission and Observation Services. [...] treating physician's order as documented evidence of concurrence.[facility] [id number] NoteHNO ID: [id number] Author: ESPINOZA ROME MD Service: General Internal [...] 500 mg ORAL q 4 H PRN nwsfdoi-sgynjyfer-idsiuqn D3 500 mg-5 mcg (200 unit) 1 [...] 04/04/2025 Neut% 64.2 11/16/2024 Lymph% 20.2 11/16/2024 Rut[place]% 11.6 11/16/2024 Eosin% 3.0 11/16/2024 Baso% 0.7 11/16/2024 Abs Neut (ANC) 4.65 11/16/2024 Abs Rutland 0.84 11/16/2024 Abs Eosin 0.22 11/16/2024 Abs [...] 0859 04/03/25 1530 vte current anticoag therapy (hi,pr) 04/03/25 1530 pneumatic compression sleeve(s) ([place], [place]) 04/03/25 1530 ac (more content not included)...[facility] HospitalLsdvffas73-84-1875 Note HNO ID: [id number] Author: AAMIR GUZMAN DO Service: Orthopaedic Surgery [...] and Airways Line Duration Peripheral 04/03/25 0738 [facility] Short Right Antecubital 20 Gauge 1 day Aamir Guzman DO Orthopaedic Surgery PGY-3 For [facility] floor related issues [place] [phone] If unable to reach the PA team between 6 am and 5 pm, please page me at [phone] At all other times, or if urgent, please page the orthopaedic on-call resident at: [phone] for [facility] patients [phone] for [facility] patients [address]39 for [facility] patients 13751 for [facility] patients 19146 for [facility] patientsWadsworth-Rittman HospitalUazlnhgy85-31-2904 NoteHNO ID: [id number] Author: IVANIA FINCH, JITENDRA Service: Care Management Author Type: Registered Nurse Type: Care Mgt Initial Assessment Filed: 04/03/2025 15:30 Note Text: CARE MANAGEMENT: ASSESSMENT AND DISCHARGE PLAN SERVICE DATE: April 03, 2025 SERVICE TIME: 3:28 pm PCP: Wojciech Treviño MD, DO Primary Contact: Extended Emergency Contact Information Primary Emergency Contact: Nickolas Wolf Address: [address] [place] [address] [facility] Mobile Relation: Spouse Secondary Emergency Contact: Lesia Gonzalez Address: [address] [facility] Mobile Relation: Daughter Admission Status: Inpatient Insurance Provider: MEDICARE A AND B Discharge Planning requested by: Per Department Practice Potential Transition Plans Home Advance Directives Current Advance Directive: None Coal Gasification Technician Attempted to Assist with AD Completion: Yes [...] General wellness, Be able to go home [place] of Choice Explained: [place] of Choice Given: No Reason Not Given: [...] Wolf DATE: April 03, 2025 TIME: 3:26 [facility]08-18-2025 NoteHNO ID: [id number] Author: RAMESH OGDEN AA Service: ? Author Type: Sander Wooden Pencils Type: Anesthesia Procedure Notes Filed: 04/03/2025 09:40 [...] Successful intubation technique: video laryngoscopy Devices used: Celles Endotracheal tube insertion site: oral Blade size: [...] April 03, 2025 TIME: 9:39 AM CSN: [id number] NoteHNO ID: [id number] Author: SURENDRA MONTEMAYOR MD Service: Anesthesiology Author [...] April 03, 2025 TIME: 9:08 AM CSN: [id number] NoteHNO ID: [id number] Author: SURENDRA MONTEMAYOR MD Service: Anesthesiology Author [...] April 03, 2025 TIME: 9:05 AM CSN: [id number] NoteCleveland Clinic [facility]08-04-2025 Telephone encounter Note* Telephone Encounter - Yesy Grace RN - 03/20/2025 3:02 PM EDT Please do not send messages back to this triage nurse. Please route to your appropriate assigned pool for [facility]. [facility]08-04-2025 Miscellaneous Notes* Telephone Encounter - Yesy [...] Region Right General Foot documented in this encounterOhiohealth Shelby Hospital08-04-2025 Telephone encounter Note * Telephone Encounter [...] Laterality Anesthesia Op Region Right General Foot [facility]08-04-2025 Instructions* Patient Instructions* Quan, Beverly, PIPE PROCESSOR.JEWELRY MAKER - 03/20/2025 9:01 AM EDT PATIENT PREOPERATIVE INSTRUCTIONS Aiden Hall has scheduled you for your procedure at this surgery center: [facility]: [phone] --[address] [place] [address]. On your scheduled day of surgery, please [...] office. If you are currently using a euvc-xer-azqs injectable or oral medication for diabetes or [...] Procedures: - YOU MUST HAVE A RESPONSIBLE THAW SHED HEATER TENDER TAKE YOU HOME. A PRIMARY CARE MD OR CHIMNEY BUILDER CANNOT BE MADE A RESPONSIBLE THAW SHED HEATER TENDER. - We recommend that a responsible person [...] Advance Directive, please fax a copy to [phone] or email to for it to be [...] your chart that day. documented in this encounterOhiohealth Shelby Hospital08-04-2025 History and physical note * Beverly [...] ablation with pulmonary vein isolation at [facility] that was done 3 times started in [...] resume once hemostasis obtained. Abisai Barraza MSN, PIPE PROCESSOR-JEWELRY MAKER, PMHNP-BC (Our P[facility] office later clarified that [...] Score: 3 (MONI does not use CPAP) [id number] Score: Age: 65-74 Sex: female CHF history: Yes Hypertension history: Yes Stroke/TIA/thromboembolism history: No Vascular disease history: No Diabetes history: No [id number] Score: 4 ARISCAT Score: Age: 51-80 Preoperative [...] fevers. Neuro: No history of TIA's, stroke, NURSE DISCHARGE PLANNER tumor, impaired sensorium, hemiplegia, paraplegia or quadraplegia. [...] drinks per day. : membranous glomerulonephritis, CKD PIPE WELDER: Negative for abnormal vaginal bleeding, abnormal vaginal [...] TUNNEL RIGHT WRIST surgical correction COLONOSCOPY 05/10/2019 [facility] COLONOSCOPY GEN ANES 07/23/2020 Dr. Frances/Diverticulosis/Hemorrhoids/ Ulcerative Colitis/Rpt in 2 yrs. COLONOSCOPY SCREENING 03/2023 EGD EUS 01/11/2020 [facility] LASIK Right prior to 1999 MRI [...] every 4 hours as needed for pain. duzezpt-abrxdxvtg-glblxcw D3 500 mg-5 mcg (200 unit) per tablet Take 1 tablet by mouth three times daily. MV with Xqm-Jyhwjsnf-Axansu (CENTRUM SILVER) 0.4 mg-300 mcg- 250 mcg [...] Jesus Wolf DATE: 03/20/2025 TIME: 9:38 AM [facility]08-04-2025 History and physical note* Beverly Glass [...] ablation with pulmonary vein isolation at [facility] that was done 3 times started in [...] resume once hemostasis obtained. Abisai Barraza MSN, PIPE PROCESSOR-JEWELRY MAKER, PMHNP-BC (Our PACC office later clarified that [...] Score: 3 (MONI does not use CPAP) [id number] Score: Age: 65-74 Sex: female CHF history: Yes Hypertension history: Yes Stroke/TIA/thromboembolism history: No Vascular disease history: No Diabetes history: No [id number] Score: 4 ARISCAT Score: Age: 51-80 Preoperative [...] fevers. Neuro: No history of TIA's, stroke, NURSE DISCHARGE PLANNER tumor, impaired sensorium, hemiplegia, paraplegia or quadraplegia. [...] drinks per day. : membranous glomerulonephritis, CKD PIPE WELDER: Negative for abnormal vaginal bleeding, abnormal vaginal [...] TUNNEL RIGHT WRIST surgical correction COLONOSCOPY 05/10/2019 [facility]astro COLONOSCOPY GEN ANES 07/23/2020 Dr. Frances/Diverticulosis/Hemorrhoids/ Ulcerative Colitis/Rpt in 2 yrs. COLONOSCOPY SCREENING 03/2023 EGD EUS 01/11/2020 [facility]astro LASIK Right prior to 1999 MRI [...] Prior to Admission medications as of 03/10/25 0962 Medication Sig Last Dose Taking alendronate (FOSAMAX) [...] every 4 hours as needed for pain. plpuxhq-dexnrcwwu-bsyehjf D3 500 mg-5 mcg (200 unit) per tablet Take 1 tablet by mouth three times daily. MV with Jhs-Yiswqhzg-Amwmrg (CENTRUM SILVER) 0.4 mg-300 mcg- 250 mcg [...] 03/20/2025 TIME: 9:38 AM documented in this encounterOhiohealth Shelby Hospital07-25-2025 NoteCleveland Clinic [facility]07-25-2025 History of Present illness Narrative* Mary Childress MD - 03/10/2025 9:31 AM EDTAssociated Order(s): Large Joint Arthro/Inj: L knee joint Post-Procedure Diagnose(s): Primary osteoarthritis of left knee This document has been created with the use of voice recognition technology, including MindFuse Scribe technology. It may contain inaccuracies: misspellings, [...] these instructions. Informed Consent Consent Obtained: Written [place] Protocol A moment to CARE was completed. [...] 10, 2025 9:45 AM documented in this encounterOhiohealth Shelby Hospital07-18-2025 Telephone encounter Note * Telephone Encounter - Doreen Barraza LPN - 03/03/2025 1:43 PM EDT Abisai Barraza DENTAL TECHNICIAN called stating ok to Stop Eliquis 3 days prior to procedure. Message received by Leelee MATA on 03-03-25 @ 1:25. Stated they will send a fax with written instructions. [facility]07-18-2025 Miscellaneous Notes* Telephone Encounter - Doreen Barraza LPN - 03/03/2025 1:43 PM EDT Abisai Barraza DENTAL TECHNICIAN called stating ok to Stop Eliquis 3 days prior to procedure. Message received by Leelee Arguelles PSR on 03-03-25 @ 1:25. Stated they will send a fax with written instructions. * Telephone Encounter - Graciela Munson RN - 03/02/2025 3:11 PM EDT Refaxed letter to Jinny Barraza PIPE PROCESSOR JEWELRY MAKER. Danika Munson RN PACC Resource Nurse * Telephone Encounter - Graciela Munson RN - 02/27/2025 2:16 PM EDT Faxed letter to Abisai Barraza requesting 3 day hold of Eliquis. Danika Munson RN PACC Resource Nurse * Telephone Encounter - Graciela Munson RN - 02/27/2025 2:15 PM EDT Images from the original note were not included. Elissa Harden, ANTONIO.JEWELRY MAKER You3 days ago CH They do list [...] resume once hemostasis obtained. Abisai Barraza MSN, PIPE PROCESSOR-JEWELRY MAKER, PMHNP-[facility] [place], [place] * Telephone Encounter - Graciela Munson RN - 02/24/2025 2:58 PM EDT Images from the original note were not included. Elissa Harden APRN.JEWELRY MAKER You6 hours ago (8:16 AM) [facility] Should [...] RN PACC Resource Nurse documented in this encounterOhiohealth Shelby Hospital07-17-2025 Telephone encounter Note * Telephone Encounter - Graciela Munson RN - 03/02/2025 3:11 PM EDT Refaxed letter to Jinny Barraza APRN JEWELRY MAKER. Danika Munson RN PACC Resource Nurse [facility]07-14-2025 Telephone encounter Note* Telephone Encounter - Graciela Munson RN - 02/27/2025 2:16 PM EDT Faxed letter to Abisai Barraza requesting 3 day hold of Eliquis. Danika Munson RN PACC Resource Nurse [facility]07-14-2025 Telephone encounter Note* Telephone Encounter - Graciela Munson RN - 02/27/2025 2:15 PM EDT Images from the original note were not included. Elissa Harden, ANTONIO.JOHNATHAN You3 days ago [facility] They do list a block under the surgical req, I would hold the 3 days per our guidelines. Thank you [facility]07-11-2025 Telephone encounter Note* Telephone Encounter - [...] resume once hemostasis obtained. Abisai Barraza MSN, PIPE PROCESSOR-JEWELRY MAKER, PMHNP-[facility] [place], [place] [facility]07-11-2025 Telephone encounter Note* Telephone Encounter - Graciela Munson RN - 02/24/2025 2:58 PM EDT Images from the original note were not included. Elissa Harden, ANTONIO.JEWELRY MAKER You6 hours ago (8:16 AM) [facility] Should be fine to hold the 3 days prior. [facility]07-08-2025 Telephone encounter Note* Telephone Encounter - [...] you, Danika Munson RN PACC Resource Nurse [facility]07-08-2025 Telephone encounter Note* Telephone Encounter - Lizeth Flores RN - 02/21/2025 12:58 PM EDT Images from the original note were not included. Most recent Rheumatology visit: 11/16/2024 (with aNdege Murphy) Last Bone Density on file: 03/15/2024 [...] 365 Days Visit Type Date Time Department [facility] Last Ophthalmology Check for [...] Open Future (Single Instance) Lab Orders None [facility]07-08-2025 Miscellaneous Notes* Telephone Encounter - Lizeth [...] 365 Days Visit Type Date Time Department [facility] 05/24/2025 9:00 AM [facility] MAIN A50 Last [...] Instance) Lab Orders None documented in this encounterOhiohealth Shelby Hospital07-07-2025 NoteCleveland Clinic [facility]07-07-2025 History of Present illness Narrative* Graciela Munson RN - 02/20/2025 8:47 AM EDT RN Pre Visit Questionnaire for upcoming PACC appointment PROCEDURE : ARTHRODESIS MIDTARSAL MULTIPLE/TRANSVERSE - Right SURGEON : Dr. Aiden Hall PROCEDURE DATE : 04/03/25 PACC APPT : 03/20/25 Prepared for surgery: Anticoagulant recommendations received: Yes RN Pre Visit Questionnaire completed by [facility] chart review and I spoke with this patient. Cardiac Optimization: Per Dr. Abisai Barraza APRN JEWELRY MAKER, found in [facility] office visit on 01/27/25. Do you see a economic research analyst, textile engraver, tufter operator or other specialist within or outside of [facility]? SPECIALISTS: CARDIOLOGY: [facility]- Abisai Barraza MSN, PIPE PROCESSOR-JEWELRY MAKER, PMHNP-BC last visit 01/27/25 ENT: Office Visit [...] TIA or thromboembolism (2) Vascular disease (prior ME, PAD, or aortic plaque) (1) Age 65-74 years (1) Sex (1) Anticoagulation recommendations : Found in CE- TE on 03/03/25 Stents: No Letter or Telephone encounter sent : Yes Provider : Dr Abisai Barraza PIPE PROCESSOR JEWELRY MAKER See 7[address] TE care everywhere: Message from Abisai Barraza sent at 03/02/2025 11:44 AM EDT ----- Ok to interrupt DOAC for 3 days as requested Implanted Devices: Watchwildcraft DIAGNOSTIC TEST REVIEW: View External Cardiology - Cardiac Cath [ID [id number]] EKG: View EKG Wave Form [ID [id number]] ECHO (09/23/2021 8:46 AM) CT watchman full contrast (08/15/2024 12:48 PM) Any new changes in your symptoms since you last saw your specialist? No Are you a Pre Diabetic/Diabetic/Weight loss/CHF medications No Dialysis No Skilled Facility Resident: no Any recent hospitalizations within [facility] or outside facilities in the past 3 months No Please have an up-to-date list of medications in preparation for your PACC visit. Instructions Given to Patient: Patient given verbal preop instructions and voices comprehension and compliance. SIGNATURE: Graciela Munson RN PATIENT NAME: Jesus Wolf DATE: February 20, 2025 TIME: 8:48 AM PAGER/CONTACT PHONE: documented in this encounterOhiohealth Shelby Hospital07-03-2025 Telephone encounter Note * Telephone Encounter - Doreen Ashby RN - 02/16/2025 3:36 PM EDT . [facility]07-03-2025 Miscellaneous Notes* Telephone Encounter - Doreen Ashby RN - 02/16/2025 3:36 PM EDT . documented in this encounterOhiohealth Shelby Hospital06-20-2025 Telephone encounter Note * Telephone Encounter - Micki Valadez - 02/03/2025 2:[address] Realtime [address] Reporter called patient and LVTCB regarding surgery with . Advised patient to call back at [phone] to discuss surgery date and following appts. [facility]06-20-2025 Miscellaneous Notes* Telephone Encounter - Micki Valadez - 02/03/2025 2:[address]time [address] Reporter called patient and LVTCB regarding surgery with . Advised patient to call back at [phone] to discuss surgery date and following appts. [...] supine Tourniquet: thigh tourniquet Instruments: mini C-arm, [place] joint prep kit, lara-legenbeck retractors, large power, small Nava Awan bone graft harvester Implants: [place] WMT/[place] EasyFuse jerry, Yajaira small frag solid/cannulated screws Time needed: 3 hours CPT: 67899, 71887, 69059, 23020, 35733 69255 documented in this encounterOhiohealth Shelby Hospital06-20-2025 Telephone encounter Note * Telephone Encounter [...] graft harvester Implants: Yajaira WMT/Yajaira EasyFuse jerry, [place] small frag solid/cannulated screws Time needed: 3 hours CPT: 54373, 22604, 94256, 00891, 86447 54347 [facility]06-18-2025 NoteCleveland Clinic [facility]06-18-2025 History of Present illness Narrative* Narcisa Velazquez, [...] Planned: 1 Planned Treatment Interventions: Therapeutic exercise (75740), Neuromuscular re- education (65451), Therapeutic activities (28623), Self-detention management (79806), Gait Training (14834) PLAN FOR NEXT VISIT: pt will f/u [...] To: Patient, Family TREATMENT: PT Treatment Interventions: Self-Shelter Management Evaluation Evaluation Self-Shelter Management: 1: ed for seat adaptions to [...] Narcisa Velazquez PT DPT documented in this encounterOhiohealth Shelby Hospital06-18-2025 NoteCleveland Clinic [facility]06-18-2025 History of Present illness Narrative* Aiden Hall [...] (chronic anticoagulation for Afib) -Schedule surgery at [facility], will plan to stay overnight -NW 8-10 [...] MD Medical Decision Making documented in this encounterOhiohealth Shelby Hospital06-18-2025 History of Present illness Narrative* Deb [...] PATIENT PRESENTS WITH AN IMPLANTABLE OR ATTACHED COMPOUNDER: No RADIOLOGY DEPARTMENT: CT; Exam(s) Completed: Lower extremity PERIPHERAL IV DATA: Not applicable SIGNED BY: RT Rowan(R) February 01, 2025 7:10 AM documented in this encounterOhiohealth Shelby Hospital06-18-2025 NoteHNO ID: [id number] Author: DEB MCGOVERN RT(Sandra) Service: Radiology Author Type: Coil Taper Type: Progress Notes Filed: 02/01/2025 07:10 Note [...] PATIENT PRESENTS WITH AN IMPLANTABLE OR ATTACHED COMPOUNDER: No RADIOLOGY DEPARTMENT: CT; Exam(s) Completed: Lower extremity PERIPHERAL IV DATA: Not applicable SIGNED BY: RT Rowan(R) February 01, 2025 7:10 AMTooele Valley HospitalOxibfksf96-01-7877 Telephone encounter Note* Telephone Encounter - Ana Paula Dykes - 01/30/2025 12:14 PM EDT She called noting she had spoken to [facility] and she had gotten scheduled there for PT; per recommendation of referring provider. [facility] [id number] Miscellaneous Notes* Telephone Encounter - Ana Paula Dykes - 01/30/2025 12:14 PM EDT She called noting she had spoken to Amina and she had gotten scheduled there for PT; per recommendation of referring provider. documented in this encounterSaint Louis University Health Science [id number] History of Present illness Narrative* Abisai Barraza APRN-JOHNATHAN - 01/27/2025 8:30 AM EDT Chief Complaint I need to have surgery on my foot Patient presents to the office in wheelchair due to limited mobility. Last evaluated in clinic Dr. Conway November 2024. She denies any hospitalizations or significant changes to interval medical history since last cardiovascular examination. Reason for Visit Patient presents to [facility] [place] to obtain cardiac risk stratification prior to [...] Major clinical markers: -Acute coronary syndrome or ME within 30 days: No -Decompensated heart failure: No -Significant arrhythmia: No -Severe valvular heart disease: No 2. Intermediate clinical markers -History of ischemic heart disease (prior ME, current chest pain secondary to ischemia, use [...] resume once hemostasis obtained. Abisai Barraza MSN, PIPE PROCESSOR-JEWELRY MAKER, PMHNP-[facility] [place], [place] Please excuse any errors in grammar or translation related to this dictation. Voice recognition software was utilized to prepare this document. documented in this [facility] Work Phone: 1(887) 396-150306-13-2025 Instructions* Patient Instructions* BRENT Franco - 01/27/2025 [...] Dr. Conway as scheduled documented in this encounterParma [facility] Work Phone: 1(480) 368-660206-12-2025 Telephone encounter Note* Telephone Encounter - Doreen Ashby RN - 01/26/2025 6:29 PM EDT Order was faxed per her request. Doreen Ashby RN [facility]06-12-2025 Miscellaneous Notes* Telephone Encounter - Doreen Ashby RN - 01/26/2025 6:29 PM EDT Order was faxed per her request. Doreen Ashby RN * Telephone Encounter - Curtis Lara - 01/26/2025 4:57 PM EDT Jesus is calling iAden Hall MD today with concern regarding Patient Update. Patient is having her pre surgery therapy at [facility] in [facility]. She needs the order for PT to be faxed to them at [phone] and phone is [phone]. Patient has been identified by name and birthdate. Person calling: self Call patient at: on cell [phone] (home) [phone] (cell) Was an appointment scheduled: No Closing statement: Results or non-symptom based questions: Thank you for calling [facility], your call will be returned within the next business day. Curtis Lara documented in this encounterOhiohealth Shelby Hospital06-12-2025 Telephone encounter Note * Telephone Encounter - Curtis Lara - 01/26/2025 4:57 PM EDT Jesus is calling Aiden Hall MD today with concern regarding Patient Update. Patient is having her pre surgery therapy at [facility] in [facility]. She needs the order for PT to be faxed to them at [phone] and phone is [phone]. Patient has been identified by name and birthdate. Person calling: self Call patient at: on cell [phone] (home) [phone] (cell) Was an appointment scheduled: No Closing statement: Results or non-symptom based questions: Thank you for calling [facility], your call will be returned within the next business day. Curtis Lara [facility]06-12-2025 History of Present illness Narrative* Coco [...] or open sores? No documented in this encounterOhiohealth Shelby Hospital06-12-2025 NoteCleveland Clinic [facility]06-11-2025 Instructions* Patient Instructions* Curtis Ogden APRN.JEWELRY MAKER - 01/25/2025 10:18 AM EDT We discussed [...] this office) or Dr. Zhao Dejesus (in [place]). Schedule the appointment for at least two [...] foot surgery: - Continue working with your economic research analyst and porcelain slusher to complete the necessary pre-surgicalevaluations. - Let me know if you have any concerns about your immune system or healing process as you prepare for surgery. Please continue monitoring your symptoms and follow the care plan outlined above. If you have any questions or concerns, feel free to reach out. documented in this encounterOhiohealth Shelby Hospital06-11-2025 NoteCleveland Clinic Children'[facility]06-11-2025 History of Present illness Narrative* Curtis Ogden APRN.CNP - 01/25/2025 9:02 AM EDT Recording using eBIZ.mobility software for draft documentation of the visit was discussed with the patient/authorized inside account representative; all questions welcomed and answered. Patient/authorized inside account representative agreed to proceed Ms. Wolf is [...] 0850 to reassess and ensure resolution. 2. alf (current) use of anticoagulants (Z79.01) Patient is [...] is currently awaiting approvals from hercardiologist and porcelain slusher. She has a CT scan scheduled for [...] every 4 hours as needed for pain. mwvzuga-woyocsplb-cehhbyo D3 500 mg-5 mcg (200 unit) per tablet Take 1 tablet by mouth three times daily. MV with Xrg-Srpyiiym-Vhkyzn (CENTRUM SILVER) 0.4 mg-300 mcg- 250 mcg [...] 2 weeks to allow for healing. 2. alf (current) use of anticoagulants Patient is on Eliquis with a history of clotting disorders. Anticoagulation therapy complicates management of epistaxis. - Continue Eliquis as prescribed; benefits outweigh risks given clotting history. - Instructed patient to inform surgical team at [facility] to avoid nasal instrumentation on theleft side during upcoming foot surgery. Curtis Ogden APRN.JEWELRY MAKER documented in this encounterOhiohealth Shelby Hospital06-10-2025 Telephone encounter Note * Telephone Encounter - Sergo Vila RN - 01/24/2025 9:46 AM EDT Spoke with patient, confirmed Dr. Aiden Hall just needs direction on which medications patient can take perioperatively (HCQ and belimumab infusions - scheduled for 01/26 and 03/23) and surgical clearance. [facility]06-10-2025 Miscellaneous Notes* Telephone Encounter - Sergo [...] she be added on? documented in this encounterOhiohealth Shelby Hospital06-10-2025 Telephone encounter Note * Telephone Encounter - Anastasiya Jackman - 01/24/2025 8:51 AM EDT Hi, This pt is scheduled with you on 05/24/25. Can she be added on? 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 Thank you for the opportunity to participate in this patient's care. Aiden Hall MD Medical Decision Making documented in this encounterOhiohealth Shelby Hospital06-05-2025 NoteIMPRESSION: NAVICULAR FRACTURE WITH PROGRESSIVE FINDINGS SUGGESTIVE OF CHARCOT ARTHROPATHY. Cylinder Loader: PSCB Transcribe Date/Time: Jan 19 2025 4:42P Dictated by : MIRTHA KENDRICK MD This examination was interpreted and the report reviewed and electronically signed by: MIRTHA KENDRICK MD on Jan 19 2025 4:45PM [facility] DIVISION OF [id number] NoteCleveland Clinic Children'S Hospital [facility] Rehabilitation06-05-2025 History of Present illness Narrative* Joan Luigi, [...] TUNNEL RIGHT WRIST surgical correction COLONOSCOPY 05/10/2019 [facility] Gastro COLONOSCOPY GEN ANES 07/23/2020 Dr. Frances/Diverticulosis/Hemorrhoids/ Ulcerative Colitis/Rpt in 2 yrs. COLONOSCOPY SCREENING 03/2023 EGD EUS 01/11/2020 [facility] Gastro LASIK Right prior to 1999 MRI [...] every 4 hours as needed for pain. vqrehcg-ckqegkoec-ycwobtx D3 500 mg-5 mcg (200 unit) per tablet Take 1 tablet by mouth three times daily. MV with Ofh-Vltnvhke-Kazegr (CENTRUM SILVER) 0.4 mg-300 mcg- 250 mcg [...] PM Beverly Franco DPM documented in this encounterOhiohealth Shelby Hospital06-05-2025 History of Present illness Narrative* Pinky [...] PATIENT PRESENTS WITH AN IMPLANTABLE OR ATTACHED COMPOUNDER: No RADIOLOGY DEPARTMENT: General X-ray: Exam(s) Completed: Lower Extremity X- Ray(s): Foot, Right and Wt. Bearing PERIPHERAL IV DATA: Not applicable SIGNED BY: RT Ale(R) January 19, 2025 1:23 PM documented in this encounterOhiohealth Shelby Hospital06-05-2025 NoteCleveland Clinic [facility]06-04-2025 Instructions* Patient Instructions* Curtis Ogden APRN.JEWELRY MAKER - 01/18/2025 3:39 PM EDT We discussed [...] could indicate an infection. Your pharmacy is [facility], and the antibiotic ointment prescription has been sent there. You may receive a text notification when it is ready for pickup. If you experience heavy bleeding that does not stop after following the Afrin and nasal clamp instructions, please go to the ER. If you have any questions or concerns before your follow-up, feel freeto contact our office. documented in this encounterOhiohealth Shelby Hospital06-04-2025 NoteC[facility] Clinic [facility]06-04-2025 History of Present illness Narrative* Curtis Ogden APRN.JOHNATHAN - 01/18/2025 9:03 AM EDT Recording using eBIZ.mobility software for draft documentation of the visit was discussed with the patient/authorized inside account representative; all questions welcomed and answered. Patient/authorized inside account representative agreed to proceed Ms. Wolf is [...] every 4 hours as needed for pain. tawzkcy-mkkfniaxs-rrqocna D3 500 mg-5 mcg (200 unit) per tablet Take 1 tablet by mouth three times daily. MV with Wku-Hwduzmno-Fcidsw (CENTRUM SILVER) 0.4 mg-300 mcg- 250 mcg [...] 0850 to reassess and ensure resolution. 2. emt intermediate (current) use of anticoagulants (Z79.01) Patient is on Eliquis for atrial fibrillation and atrial flutter, which complicates hemostasis during epistaxis episodes. - Discussed increased risk of recurrent epistaxis due to anticoagulation therapy. - Emphasized the importance of following epistaxis management instructions to minimize bleeding risks. Curtis Ogden APRN.JEWELRY MAKER documented in this encounterOhiohealth Shelby Hospital05-15-2025 History of Present illness Narrative* Wojciech [...] started 3-4 weeks ago. She went to medical translator and she was diagnosed with a comminuted navicular fracture and is wearing a boot. Her pushes her around in a wheelchair. She saw the economic research analyst and he recommended she stay on Eliquis [...] with routine healing, subsequent encounter follow-up with medical translator as directed Paroxysmal atrial fibrillation ([facility]) seems to be in sinus rhythm now. Continue Eliquis Obesity, morbid ([facility]) She is obese. She would benefit from [...] 1 Application before bedtime. documented in this encounterOhio State East Hospital05-08-2025 NoteC[facility] Clinic [facility]05-08-2025 History of Present illness Narrative* Will Greer [...] for internal providers or letter via the [employer] for external providers. ASSESSMENT AND PLAN: [...] TUNNEL RIGHT WRIST surgical correction COLONOSCOPY 05/10/2019 [facility] Gastro COLONOSCOPY GEN ANES 07/23/2020 Dr. Frances/Diverticulosis/Hemorrhoids/ Ulcerative Colitis/Rpt in 2 yrs. COLONOSCOPY SCREENING 03/2023 EGD EUS 01/11/2020 [facility]astro LASIK Right prior to 1999 MRI PANC/JEANIE WO/W IVCON 12/20/2019 [facility] PAST SURGICAL HISTORY OF 07/2013 bilateral foot procedure, [place] PAST SURGICAL HISTORY OF Ablation X2 TONSILLECTOMY [...] every 4 hours as needed for pain. caxoyep-ojpwawdzz-uqpsndo D3 500 mg-5 mcg (200 unit) per tablet Take 1 tablet by mouth three times daily. MV with Avn-Pmtdhvyc-Goqnua (CENTRUM SILVER) 0.4 mg-300 mcg- 250 mcg [...] 3 months (around 03/24/2025). documented in this encounterOhiohealth Shelby Hospital05-07-2025 NoteC[facility] Clinic [facility]05-07-2025 History of Present illness Narrative* Beverly Franco [...] TUNNEL RIGHT WRIST surgical correction COLONOSCOPY 05/10/2019 [facility] Gastro COLONOSCOPY GEN ANES 07/23/2020 Dr. Frances/Diverticulosis/Hemorrhoids/ Ulcerative Colitis/Rpt in 2 yrs. COLONOSCOPY SCREENING 03/2023 EGD EUS 01/11/2020 [facility] Gastro LASIK Right prior to 1999 MRI [...] every 4 hours as needed for pain. jkdorfv-dlwejfxyo-fjevwof D3 500 mg-5 mcg (200 unit) per tablet Take 1 tablet by mouth three times daily. 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 Patient immobilized withpneumatic Aircast dispensed through [employer]. I have provided a order for rolling knee walker. FOLLOW-UP: 4 weeks with repeat weightbearing x-ray at that time SIGNATURE: Beverly Franco DPM PATIENT NAME: Jesus Gordont DATE: December 21, 2024 TIME: 1:06 PM Beverly Franco DPM documented in this encounterOhiohealth Shelby Hospital05-07-2025 History of Present illness Narrative* Meghan [...] PATIENT PRESENTS WITH AN IMPLANTABLE OR ATTACHED COMPOUNDER: No RADIOLOGY DEPARTMENT: General X-ray: Exam(s) Completed: Lower Extremity X- Ray(s): Foot, Right and Wt. Bearing PERIPHERAL IV DATA: Not applicable SIGNED BY: RT Erendira(R) December 21, 2024 12:03 PM documented in this encounterOhiohealth Shelby Hospital05-07-2025 NoteCleveland Clinic [facility]05-06-2025 Miscellaneous Notes* Telephone Encounter - Cydney Reynolds [...] most recent office visit from , her economic research analyst, who cut back on her amiodarone but [...] and she understands this documented in this encounterOhio State East Hospital05-06-2025 Telephone encounter Note* Telephone Encounter - [...] most recent office visit from , her economic research analyst, who cut back on her amiodarone but [...] 4:26 PM EDT To: Wojciech Treviño DO [facility]05-06-2025 Telephone encounter Note* Telephone Encounter - Monica Theodore CMA - 12/20/2024 11:19 AM EDT Patient called back and she understands this [facility]05-06-2025 Telephone encounter Note* Telephone Encounter - Selin Birmingham LPN - 12/20/2024 8:40 AM EDTSummary: Xray Patient contacted updated the images are not in chart for Dr. Franco to review. Patient agreeableto have xrays completed prior to appointment. Patient grateful for call. Selin Birmingham LPN [facility]05-06-2025 Miscellaneous Notes* Telephone Encounter - Selin Birmingham LPN - 12/20/2024 8:40 AM EDTSummary: Xray Patient contacted updated the images are not in chart for Dr. Franco to review. Patient agreeableto have xrays completed prior to appointment. Patient grateful for call. Selin Birmingham LPN documented in this encounterOhiohealth Shelby Hospital05-05-2025 History of Present illness Narrative* Wojciech [...] has calluses on her feetand sees a medical translator. Her Aldactone was stopped by the economic research analyst. The following portions of the patient's history [...] possible. She may need to see a medical translator. Pedal edema She said the economic research analyst stopped her Aldactone. I am going to have her double up on her furosemideto 2 daily for 3 days to try to get rid of some of this fluid. documented in this encounterWashington County Tub[facility] HospitalCampus [facility]05-05-2025 Telephone encounter Note* Telephone Encounter - Yesy Grace RN - 12/19/2024 9:07 AM EDT Pt is identified by name and birthdate: Yes Patient calls to make appt with Dr. Nayeli Jones for Right Foot Swelling - states she fell a few weeks ago and she is in pain/swelling. Denies Redness TOM: 03/05/21 Advised to be seen in [facility]. Patient agreeable [facility]05-05-2025 Miscellaneous Notes* Telephone Encounter - Yesy [...] [facility]. Patient agreeable documented in this encounterOhiohealth Shelby Hospital04-23-2025 History of Present illness Narrative* Yuriy [...] ablation with pulmonary vein isolation at [facility] that was done 3 times started in [...] medical therapy with hydroxychloroquine. Managed by the [facility] 4. Morbid obesity, patient is trying [...] status post parathyroidectomy last year at the [facility] with success 10. Ascending aortic aneurysm [...] unspecified chronicity, unspecified laterality, unspecified vein 4. alf current use of anticoagulant therapy 5. Chronic [...] exam, discussion and plan. documented in this [facility] Work Phone: 1(801) 262-799604-23-2025 Instructions* Patient Instructions* Jesus Alatorre LPN - [...] through Care Everywhere. * Heart Healthy Diet (Greek) documented in this encounterParma Community General Hospital Work Phone: 1(848) 445-941804-17-2025 Note* Addendum Note - Nadege Murphy DO - 12/01/2024 3:17 PM EDTAddended by: NADEGE MURPHY on: 12/01/2024 03:17 PM Modules accepted: Orders [facility]04-17-2025 Miscellaneous Notes* Addendum Note - Nadege Murphy DO - 12/01/2024 3:17 PM EDTAddended by: NADEGE MURPHY on: 12/01/2024 03:17 PM Modules accepted: Orders documented in this encounterOhiohealth Shelby Hospital04-17-2025 NoteC[facility] Clinic [facility]04-17-2025 History of Present illness Narrative* Cecille Casillas [...] or open sores? No documented in this encounterOhiohealth Shelby Hospital04-17-2025 Telephone encounter Note * Telephone Encounter [...] 365 Days Visit Type Date Time Department [facility] 05/24/2025 9:00 AM [facility] MAIN A50 Last Ophthalmology Check for [...] Open Future (Single Instance) Lab Orders None [facility]04-17-2025 Miscellaneous Notes* Telephone Encounter - Radha [...] 365 Days Visit Type Date Time Department [facility] 05/24/2025 9:00 AM [facility] MAIN A50 Last Ophthalmology Check for [...] Instance) Lab Orders None documented in this encounterOhiohealth Shelby Hospital04-16-2025 Telephone encounter Note * Telephone Encounter [...] 365 Days Visit Type Date Time Department [facility] Last Ophthalmology Check for [...] Open Future (Single Instance) Lab Orders None [facility]04-16-2025 Miscellaneous Notes* Telephone Encounter - Kirsty [...] 365 Days Visit Type Date Time Department [facility] 05/24/2025 9:00 AM [facility] A50 Last Ophthalmology Check for [...] Instance) Lab Orders None documented in this encounterOhiohealth Shelby Hospital04-16-2025 Telephone encounter Note * Telephone Encounter - Bang Spears RN - 11/30/2024 4:23 PM EDT Pharmacy escripts requesting the following refill: Requested Prescriptions Pending Prescriptions Disp Refills Mesalamine (LIALDA) 1.2 gram EC tablet 360 tablet 3 Sig: Take 4 tablets by mouth once daily. Please review and advise. Bang Spears RN [facility]04-16-2025 Telephone encounter Note* Telephone Encounter - Bang Spears RN - 11/30/2024 4:23 PM EDT Pharmacy escripts requesting the following refill: Requested Prescriptions Pending Prescriptions Disp Refills ferrous sulfate (IRON) 325 mg (65 mg iron) tablet 90 tablet 3 Sig: Take 1 tablet by mouth once daily. Please review and advise. Bang Spears RN [facility]04-16-2025 Miscellaneous Notes* Telephone Encounter - Bang Spears RN - 11/30/2024 4:23 PM EDT Pharmacy escripts requesting the following refill: Requested Prescriptions Pending Prescriptions Disp Refills ferrous sulfate (IRON) 325 mg (65 mg iron) tablet 90 tablet 3 Sig: Take 1 tablet by mouth once daily. Please review and advise. Bang Spears RN documented in this encounterOhiohealth Shelby Hospital04-16-2025 Miscellaneous Notes* Telephone Encounter - Bang Spears RN - 11/30/2024 4:23 PM EDT Pharmacy escripts requesting the following refill: Requested Prescriptions Pending Prescriptions Disp Refills Mesalamine (LIALDA) 1.2 gram EC tablet 360 tablet 3 Sig: Take 4 tablets by mouth once daily. Please review and advise. Bang Spears RN documented in this encounterOhiohealth Shelby Hospital04-14-2025 History of Present illness Narrative* Wojciech [...] worse. She saw the orthopedist it the [facility] who said she had bone on [...] Exam Vitals reviewed. Exam conducted with a gravel machine operator present (Burak Peterson MS 3). Constitutional: General: [...] She would like to proceed. [facility] the patient as well as the orthopedic visit. She was given an inj ection today without complications. She noted a near immediate improvement in pain. documented in this encounterOhio State East Hospital04-10-2025 Telephone encounter Note* Telephone Encounter - Jessenia Lopes RN - 11/24/2024 5:31 AM EDT Scan on 11/23/2024 9:53 AM by ProviderSang PA-C: Consultation - Ophthalmology Jessenia Lopes RN [facility]04-10-2025 Miscellaneous Notes* Telephone Encounter - Jessenia Lopes RN - 11/24/2024 5:31 AM EDT Scan on 11/23/2024 9:53 AM by ProviderSang PAFlowerC: Consultation - Ophthalmology Jessenia Lopes RN * Telephone Encounter - Anastasiya Jackman - 11/23/2024 3:11 PM EDT Received eye report from [facility] on 11/23/24. Scanned for review. documented in this encounterOhiohealth Shelby Hospital04-09-2025 Telephone encounter Note * Telephone Encounter - Anastasiya Jackman - 11/23/2024 3:11 PM EDT Received eye report from [facility] on 11/23/24. Scanned for review. [facility]04-02-2025 History of Present illness Narrative* Nadege Murphy Susan, - 11/16/2024 9:00 AM EDT Images from the original note were not included. [facility] DEPARTMENT OF RHEUMATIC AND IMMUNOLOGIC DISEASES [...] TUNNEL RIGHT WRIST surgical correction COLONOSCOPY 05/10/2019 [facility] COLONOSCOPY GEN ANES 07/23/2020 Dr. Frances/Diverticulosis/Hemorrhoids/ Ulcerative Colitis/Rpt in 2 yrs. COLONOSCOPY SCREENING 03/2023 EGD EUS 01/11/2020 [facility] Gastro LASIK Right prior to 1999 MRI [...] every 4 hours as needed for pain. facmgxc-ywunmnyou-emxaoke D3 500 mg-5 mcg (200 unit) per tablet Take 1 tablet by mouth three times daily. MV with Wil-Kfnbhhdb-Waayzh (CENTRUM SILVER) 0.4 mg-300 mcg- 250 mcg [...] Murphy D.O. Rheumatology Staff documented in this encounterOhiohealth Shelby Hospital04-02-2025 NoteCleveland Clinic [facility]04-01-2025 Telephone encounter Note* Telephone Encounter - Miroslava [...] TAKE 3 TABLETS BY MOUTH TWICE DAILY [facility]04-01-2025 Miscellaneous Notes* Telephone Encounter - Miroslava Braga LPN - [...] BY MOUTH TWICE DAILY documented in this encounterOhiohealth Shelby Hospital04-01-2025 NoteCleveland Clinic [facility]04-01-2025 History of Present illness Narrative* Radu Salazar MD - 11/15/2024 9:22 AM EDT [facility] SERVICE DATE: November [...] outside cardiology for Afib/ HFpEF (Dr Conway, On license of [facility]) - had ablation and watchman device - [...] controlled, not checking at home - outside economic research analyst monitoring closely PAST MEDICAL HISTORY: PAST MEDICAL [...] every 4 hours as needed for pain. vyljsms-svkggzyue-ozezluj D3 500 mg-5 mcg (200 unit) per tablet Take 1 tablet by mouth three times daily. MV with Djp-Nehdzaiq-Wdzvjh (CENTRUM SILVER) 0.4 mg-300 mcg- 250 mcg [...] 5.5 4.3 - 5.6 % Final Comment: [place] [employer] guidelines indicate that patients with HgbA1c in the range 5.7-6.4% are at increased risk for development of diabetes, and intervention by lifestyle modification may be beneficial. HgbA1c greater or equal to 6.5% is considered diagnostic of diabetes. 03/09/2019 5.5 4.3 - 5.6 % Final Comment: [place] [employer] guidelines indicate that patients with [...] Range Status 05/26/2024 5.5 <8.5 Final Specific Gautier, Ur Date Value Ref Range Status 05/26/2024 [...] ICD-10-CM 1. Lupus nephritis, ISN/RPS class V ([facility]) M32.14 COMPREHENSIVE METABOLIC PANEL COMPLETE BLOOD COUNT [...] which included preparing to see the patient, want-km-rpul patient care, completing clinical documentation, obtaining and/or reviewing separately obtained history, performing a medically appropriate examination, counseling and educating the pat ient/family/caregiver, and ordering medications, tests, or procedures. SIGNATURE: Radu Salazar MD, FACP, FASN PATIENT NAME: Jesus Wolf DATE: November 15, 2024 TIME: 9:22 AM OFFICE NUMBER: [phone] CC: PRIMARY CARE PHYSICIAN: Wojciech Treviño MD, documented in this encounterOhiohealth Shelby Hospital03-03-2025 Telephone encounter Note * Telephone Encounter [...] above. Please process accordingly. Fercho Parks LPN [facility]03-03-2025 Miscellaneous Notes* Telephone Encounter - Fercho [...] accordingly. Fercho Parks LPN documented in this encounterOhiohealth Shelby Hospital02-25-2025 History of Present illness Narrative* Wojciech Treviño DO - 10/11/2024 4:00 PM EST Subjective Patient ID: Jesus Wolf is a 69 y.o. female. Jesus presents today to discuss several issues. She saw the economic research analyst and he recommend that sheget treated for sleep apnea. Currently she does not use a CPAP. She was tested many years ago in [place]. She is interested in the new surgery [...] abnormal but she does not see a textile engraver. She has had the Watchman device implanted [...] heart failure (CMS-HCC) Stable. Follow up with economic research analyst. Recent CT scan of her chest and echocardiogram reviewed with the patient. Atypical atrial flutter (CMS-HCC) Seems to be in normal sinus rhythm now. She has had the watchman device implanted. documented in this encounterOhio [facility] Hospital02-20-2025 NoteC[facility] History of Present illness Narrative* Coco Guzman, [...] or open sores? No documented in this encounterOhiohealth Shelby Hospital02-19-2025 Telephone encounter Note * Telephone Encounter - Coco Guzman RN - 10/05/2024 1:00 PM EST Spoke with patient who confirmed she is well and will be in for her infusion tomorrow. [facility]02-19-[facility]25 Miscellaneous Notes* Telephone Encounter - Coco [...] infusion appointment as scheduled. documented in this encounterOhiohealth Shelby Hospital02-19-2025 Telephone encounter Note * Telephone Encounter - Cecille Casillas RN - 10/05/2024 9:29 AM EST Called patient to confirm infusion appointment. No answer, left voicemail asking for return call orMyChart message confirming that they are well and will be coming to infusion appointment as scheduled. [facility]02-14-[facility] History and physical note* Dione Frances [...] Lymph 1.00 - 4.00 k/uL 0.68 (L) [place]% % 3.8 Abs [place] <0.87 k/uL 0.34 Eosin% % 1.0 Abs [...] TUNNEL RIGHT WRIST surgical correction COLONOSCOPY 05/10/2019 [facility] COLONOSCOPY GEN ANES 07/23/2020 Dr. Frances/Diverticulosis/Hemorrhoids/ Ulcerative Colitis/Rpt in 2 yrs. COLONOSCOPY SCREENING 03/2023 EGD EUS 01/11/2020 [facility] Gastro LASIK Right prior to 1999 MRI PANC/JEANIE WO/W IVCON 12/20/2019 [facility]VARIAN CYSTECTOMY PAST SURGICAL HISTORY OF 07/2013 bilateral foot procedure, [place] PAST SURGICAL HISTORY OF Ablation X2 TONSILLECTOMY [...] every 4 hours as needed for pain. weyfwdn-nedgybosb-iaqonrw D3 500 mg-5 mcg (200 unit) per tablet Take 1 tablet by mouth three times daily. MV with Ggc-Iubmenaf-Worfqh (CENTRUM SILVER) 0.4 mg-300 mcg- 250 mcg [...] No history of dysuria, frequency or incontinence PIPE WELDER: Negative for abnormal vaginal bleeding, abnormal vaginal [...] This note was partially generated using the [employer] voice recognition system, there may be some incorrect words, spellings, and punctuation that were not noted in checking the note before saving [facility]02-14-[facility] History and physical note* Dione Frances [...] Lymph 1.00 - 4.00 k/uL 0.68 (L) [place]% % 3.8 Abs [place] <0.87 k/uL 0.34 Eosin% % 1.0 Abs [...] TUNNEL RIGHT WRIST surgical correction COLONOSCOPY 05/10/2019 [facility] Gastro COLONOSCOPY GEN ANES 07/23/2020 Dr. Frances/Diverticulosis/Hemorrhoids/ Ulcerative Colitis/Rpt in 2 yrs. COLONOSCOPY SCREENING 03/2023 EGD EUS 01/11/2020 [facility] Gastro LASIK Right prior to 1999 MRI PANC/JEANIE WO/W IVCON 12/20/2019 OVARIAN CYSTECTOMY PAST SURGICAL HISTORY OF 07/2013 bilateral foot procedure, [place] PAST SURGICAL HISTORY OF Ablation X2 TONSILLECTOMY [...] every 4 hours as needed for pain. gzaxgit-tfvmolhnj-xjihqzl D3 500 mg-5 mcg (200 unit) per tablet Take 1 tablet by mouth three times daily. MV with Mah-Vidhbgdd-Muouok (CENTRUM SILVER) 0.4 mg-300 mcg- 250 mcg [...] No history of dysuria, frequency or incontinence PIPE WELDER: Negative for abnormal vaginal bleeding, abnormal vaginal [...] This note was partially generated using the [employer] voice recognition system, there may be some incorrect words, spellings, and punctuation that were not noted in checking the note before saving documented in this encounterOhiohealth Shelby Hospital02-14-2025 Instructions* Patient Instructions* Dione Frances MD - 09/30/2024 9:43 AM EST Continue mesalamine Continue colestipol 5 pill daily Continue Protonix twice daily Colonoscopy 2025 documented in this encounterOhiohealth Shelby Hospital01-30-2025 Radiology Diagnostic study [facility] [place] [address] CT Scan Report Signed Patient: Jesus Wolf MR#: [id number] : 1955 Acct:[id number] Age/Sex: 69 / F ADM Date: 5 Loc: CT Room: Type: [facility] Attending Dr: Yuriy Conway MD Copies to: Yuriy Conway MD, [facility]~ Ordering Provider: Yuriy Conway MD, [facility] Date of Service: 09/15/24 CT/CT angio [...] Concepcion Jr., D.O.09/15/2024 3:59 PM Dictation Location: [facility]-- Transcribed By: [facility] 09/15/24 1559 Dictated By: Jose Concepcion Jr, DO 09/15/24 1553 Signed By: 09/15/24 1559 [facility]01-23-2025 Telephone encounter Note* Telephone Encounter - Fercho Parks LPN - 09/08/2024 2:04 PM EST Refill Request Last office visit: 12/22/[address] Frances Future office visit: 09/30/[address] rFances Request for medication is as follows: Requested Prescriptions Pending Prescriptions Disp Refills Mesalamine (LIALDA) 1.2 gram EC tablet [Pharmacy Med Name: Mesalamine 1.2 GM Oral Tablet Delayed Release] 360 tablet 0 Sig: TAKE 4 TABLETS BY MOUTH ONCE DAILY Prescription(s) as above. Please process accordingly. Fercho Parks LPN [facility]01-23-2025 Miscellaneous Notes* Telephone Encounter - Fercho [...] accordingly. Fercho Parks LPN documented in this encounterOhiohealth Shelby Hospital01-13-2025 [facility] [place] [place] [address] Pulmonary Function Signed Patient: Jesus Wolf MR#: [id number] : 1955 Date of Service:0 08/29/24 Age/Sex: 69 / F ADM Date: 5 Loc: Room: Type: [facility] Attending Dr: Yuriy Conway MD Copies to: MD Wojciech Lorenzo DO Hassan M Ibrahim, MD, [facility]~ Pulmonary Function Test Complete pulmonary function [...] Moreno MD 08/29/24 1556 Signed By: 08/29/[address] [place], [place] [address]12-26-2024 Telephone encounter Note* Telephone Encounter - Karime Tinsley - 08/11/2024 3:50 PM EST Called patient to confirm she received the message that was sent by Ana Paula cramerceling her appointment. Patient reports vaguely getting a message of sorts. I asked the patient if she would like to reschedule. She declined and reports her knee has been doing ok since the last injection. [facility]12-26-2024 Miscellaneous Notes* Telephone Encounter - Karime Tinsley [...] since the last injection. documented in this encounterOhiohealth Shelby Hospital12-26-2024 NoteC[facility]12-26-2024 History of Present illness Narrative* Kim Gallegos [...] or open sores? No documented in this encounterOhiohealth Shelby Hospital12-23-2024 Telephone encounter Note * Telephone Encounter - Cecille Casillas RN - 08/08/2024 11:19 AM EST Called and spoke with patient. Confirmed she is well and will be coming for her infusion on . [facility]12-23-2024 Miscellaneous Notes* Telephone Encounter - Cecille Casillas RN - 08/08/2024 11:19 AM EST Called and spoke with patient. Confirmed she is well and will be coming for her infusion on . documented in this encounterOhiohealth Shelby Hospital12-20-2024 History of Present illness Narrative* Buster [...] she had ablation for atrial fibrillation at [facility] which was successful. Couple months later she [...] ablation with pulmonary vein isolation at [facility] in 2019 and in 2023 with recurrences [...] medical therapy with hydroxychloroquine. Managed by the [facility] 4. Morbid obesity, patient is trying [...] status post parathyroidectomy last year at the [facility] with success 10. Ascending aortic aneurysm [...] Thoracic aortic aneurysm without rupture, unspecified part ([facility]) 7. Nonsustained ventricular tachycardia (Multi) 8. Obstructive [...] exam, discussion and plan. documented in this encounterParma [facility] Work Phone: [phone] 397-302212-20-2024 Instructions* Patient Instructions* Bell Zamarripa LPN - [...] mg daily Echo Luis documented in this encounterParma Community [facility] Hospital Work Phone: 1(345) 863-987112-02-2024 Miscellaneous Notes* Telephone Encounter - Rachelle Guzman [...] 3:57 PM EST notified documented in this encounterOhio State East Hospital12-02-2024 Telephone encounter Note* Telephone Encounter - Rachelle Guzman CMA - 07/18/2024 3:57 PM EST Patient called back and stated that she now is testing positive for covid. She started feeling worse after Thanksgiving and took a Covid test today and tested Positive. What is your suggestions for her? [facility]12-02-[facility] Telephone encounter Note* Telephone Encounter - Wojciech Taz DO Kamila - 07/18/2024 3:57 PM EST She is past the 5 day window so it is just supportive care. If she gets short of breath she should go to the emergency room. Use cough suppressants an analgesics [facility]12-02-2024 Telephone encounter Note* Telephone Encounter - Rachelle Guzmna CMA - 07/18/2024 3:57 PM EST notified [facility]12-02-2024 Telephone encounter Note* Telephone Encounter - Alejandra Tian MA - 07/18/2024 7:30 AM EST Pharmacy has requested the following refill(s): Requested Prescriptions Pending Prescriptions Disp Refills pantoprazole DR (PROTONIX) 40 mg tablet [Pharmacy Med Name: Pantoprazole Sodium 40 MG Oral Tablet Delayed Release] 180 tablet 0 Sig: Take 1 tablet by mouth twice daily [facility]12-02-2024 Miscellaneous Notes* Telephone Encounter - Alejandra Tian MA - 07/18/2024 7:30 AM EST Pharmacy has requested the following refill(s): Requested Prescriptions Pending Prescriptions Disp Refills pantoprazole DR (PROTONIX) 40 mg tablet [Pharmacy Med Name: Pantoprazole Sodium 40 MG Oral Tablet Delayed Release] 180 tablet 0 Sig: Take 1 tablet by mouth twice daily documented in this encounterOhiohealth Shelby Hospital11-25-2024 History of Present illness Narrative* Wojciech [...] Exam Vitals reviewed. Exam conducted with a gravel machine operator present (Hakeem Orosco MS III). Constitutional: General: [...] rhinorrhea present. Rhinorrhea is clear. Mouth/Throat: Lips: [address]. Mouth: Mucous membranes are moist. Pharynx: Posterior [...] morning. follow package directions. documented in this encounterOhio State East Hospital11-14-2024 History of Present illness Narrative* Wojciech Treviño DO - 06/30/2024 9:00 AM EST Subjective Patient ID: Jesus Wolf is a 69 y.o. female. Jesus presents today for general recheck. Her left upper arm pain and swelling is better. Her veins are prominent though. She sees the economic research analyst next month. She is back in atrial fibrillation. She is taking her Eliquis. She did have a Watchman procedure though and was hoping to get off the Eliquis. Her right knee continues to cause pain. She is taking Celebrex. She is aware of the bleeding and renal risks. The eating disorder specialist told her it was bone on [...] her knee replaced eventually She sees her print controller. She had her kidneys checked recently and [...] Exam Vitals reviewed. Exam conducted with a gravel machine operator present (Hakeem Yee MS III). Constitutional: General: [...] of brachial vein of left upper extremity ([facility]) Stay on Eliquis for now. Pathophysiology of DVTs discussed. Will defer to Cardiology to see if she needs to stay on anticoagulation group home or if she needs further imaging. Post phlebitic syndrome discussed and she may need to see vascular. Paroxysmal atrial fibrillation ([facility]) She seems to be in sinus rhythm right now. Continue current regimen. Follow up with cardiology as directed. Stage 3a chronic kidney disease ([facility]) Last GFR improved significantly to 59. That [...] skin once a week. documented in this encounterOhio State East Hospital10-29-2024 History of Present illness Narrative* Coco [...] or open sores? No documented in this encounterOhiohealth Shelby Hospital10-28-2024 Telephone encounter Note * Telephone Encounter - Arianne Cox RN - 06/13/2024 9:43 AM EDT Confirmed patient will be here for infusion and is infection free. [facility]10-28-2024 Miscellaneous Notes* Telephone Encounter - Arianne Cox RN - 06/13/2024 9:43 AM EDT Confirmed patient will be here for infusion and is infection free. documented in this encounterOhiohealth Shelby Hospital10-04-2024 History of Present illness Narrative* Mary Chidlress MD - 05/20/2024 9:35 AM EDTAssociated Order(s): [...] with uninfected necrosis SLE (systemic lupus erythematosus) ([facility]) Sleep apnea 07/29/2012 SOCIAL HISTORY: Tobacco Use: [...] knee joint Informed Consent Consent Obtained: Written [place] Protocol A moment to CARE was completed. [...] degenerative change. She receives care through her porcelain slusher consistently. She is also receiving treatments for [...] months to assess response from the injection. Alferdo Norwood PA-C I have personally performed face [...] cortisone. Will follow-up in 3 months Mary Childress MD May 20, 2024 10:27 AM documented in this encounterOhiohealth Shelby Hospital10-04-2024 History of Present illness Narrative* Sarai [...] PATIENT PRESENTS WITH AN IMPLANTABLE OR ATTACHED COMPOUNDER: No RADIOLOGY DEPARTMENT: General X-ray: Exam(s) Completed: Lower Extremity X- Ray(s): Knee, AP Only Left PERIPHERAL IV DATA: Not applicable SIGNED BY: RT Nandini(R) May 20, 2024 9:23 AM documented in this encounterOhiohealth Shelby Hospital10-03-2024 History of Present illness Narrative* Wojciech [...] high dose flu vaccine documented in this encounterThe Surgical Hospital at SouthwoodsNutshell Rehabilitation Institute Of [id number] History of Present illness Narrative* Nadege Murphy DO - 05/18/2024 2:30 PM EDT Images from the original note were not included. [facility] DEPARTMENT OF [...] TUNNEL RIGHT WRIST surgical correction COLONOSCOPY 05/10/2019 [facility] Gastro COLONOSCOPY GEN ANES 07/23/2020 Dr. Frances/Diverticulosis/Hemorrhoids/ Ulcerative Colitis/Rpt in 2 yrs. COLONOSCOPY SCREENING 03/2023 EGD EUS 01/11/2020 [facility] Gastro LASIK Right prior to 1999 MRI [...] every 4 hours as needed for pain. extdohd-babesmkmq-apzcnan D3 500 mg-5 mcg (200 unit) per tablet Take 1 tablet by mouth three times daily. MV with Ahc-Ajvlskxk-Yudiad (CENTRUM SILVER) 0.4 mg-300 mcg- 250 mcg [...] Murphy D.O. Rheumatology Staff documented in this encounterOhiohealth Shelby Hospital09-30-2024 History of Present illness Narrative* Christian Kaur, PIPE PROCESSOR-JEWELRY MAKER - 05/16/2024 10:30 AM EDT Subjective Jesus [...] status post parathyroidectomy last year at the [facility] with success, Ascending aortic aneurysm measured 4.6 [...] back to NSR spontaneously. She uses a Rhapsody mobile device and statesshe is going in [...] with our officeas needed documented in this [facility] Work Phone: [phone]) 618-751909-23-2024 History of Present illness Narrative* Kimmy Cerda, [...] quite some time. Had an X-ray in [place] which showed bone on bone OA of [...] to be instructed in home exercise program. Halfway Goals: To be met in 10 weeks [...] Please sign below. Date: documented in this encounterSaint Louis University Health Science [id number] Telephone encounter Note* Telephone Encounter - Coco Guzman RN - 04/19/2024 2:58 PM EDT This patient requests that her Benlysta infuse over 2 hours instead of 1 hour. She states that she had issues with nausea and not feeling well in the past when infused over 1 hour. Can you please change her plan to reflect this if you agree? Thank you [facility]09-03-2024 Miscellaneous Notes* Telephone Encounter - Coco [...] you agree? Thank you documented in this encounterOhiohealth Shelby Hospital09-03-2024 History of Present illness Narrative* Coco [...] or open sores? No documented in this encounterOhiohealth Shelby Hospital08-31-2024 Miscellaneous Notes* Telephone Encounter - Nelia Berumen CMA - 04/16/2024 9:04 AM EDT Contract: [id number] Dr Zhang., radiologist at [place] [address] re ultrasound results. Thanks. michael Pickens. documented in this encounterOhio State East Hospital08-31-2024 Telephone encounter Note* Telephone Encounter - Nelia Berumen CMA - 04/16/2024 9:04 AM EDT Contract: [id number] Dr Zhang., radiologist at [place] [address] re ultrasound results. Thanks. michael Pickens. [facility]08-30-[facility] Telephone encounter Note* Telephone Encounter - Arianne Cox RN - 04/15/2024 11:37 AM EDT Confirmed patient will be here for infusion and is infection free. [facility]08-30-2024 Miscellaneous Notes* Telephone Encounter - Arianne Cox RN - 04/15/2024 11:37 AM EDT Confirmed patient will be here for infusion and is infection free. documented in this encounterOhiohealth Shelby Hospital08-22-2024 Hospital Discharge instructions* Discharge Instructions* Jori [...] *Continue to follow up with your primary economic research analyst, primary care physician, and any other specialists [...] you have any concerns, youmay contact the Licensed Club Manager or if any of these symptoms become excessive, contact your economic research analyst mgiuelina to the emergency room. No tub baths, soaking, or swimming for one week. May shower the next day after your procedure. If you have any questions about the effects of the sedative drugs or groin care, call the physicianwho performed your procedure. FOLLOW UP: Court Kaur - already scheduled documented in this encounterParma Community General Hospital Work Phone: 1(456) 232-767108-14-2024 Miscellaneous Notes* Telephone Encounter - Monica Theodore CMA - 03/30/2024 12:27 PM EDT Patient asked at the discharge window if she could take this again for 3 months. documented in this encounterOhio State East Hospital08-14-2024 Telephone encounter Note* Telephone Encounter - Monica Theodore CMA - 03/30/2024 12:27 PM EDT Patient asked at the discharge window if she could take this again for 3 months. [facility]08-14-[facility] History of Present illness Narrative* Wojciech [...] testing so they sent her to a print controller [facility] who did an ultrasound of her [...] Objective Physical Exam Exam conducted with a gravel machine operator present (Emiliano Reyna MS III). Constitutional: Appearance: [...] IIIA chronic kidney disease. Sheis seeing the print controller. Localized osteoarthritis of left knee - Ambulatory [...] mg 3times a day documented in this encounterOhio State East Hospital08-12-2024 History of Present illness Narrative* Romana [...] PATIENT PRESENTS WITH AN IMPLANTABLE OR ATTACHED COMPOUNDER: No RADIOLOGY DEPARTMENT: Ultrasound PERIPHERAL IV DATA: Not applicable SIGNED BY: Romana Nath RDMS March 28, 2024 11:24 AM documented in this encounterOhiohealth Shelby Hospital08-01-2024 Note* Addendum Note - Nadege Murphy DO - 03/17/2024 11:11 AM EDTAddended by: NADEGE MURPHY on: 03/17/2024 11:11 AM Modules accepted: Orders [facility]08-01-2024 Miscellaneous Notes* Addendum Note - Nadege [...] Visit Type Date Time Department [facility] MEDICAL 07/11/2024 2:00 PM RHEU MAIN [...] Instance) Lab Orders None documented in this encounterOhiohealth Shelby Hospital08-01-2024 Note* Addendum Note - Sergo Vila RN - 03/17/2024 11:01 AM EDTAddended by: SERGO VILA on: 03/17/2024 11:01 AM Modules accepted: Orders [facility]08-01-2024 Telephone encounter Note* Telephone Encounter - Sergo Vila RN - 03/17/2024 10:58 AM EDT Images from the original note were not included. Most recent Rheumatology visit: 03/15/2024 (with Obdulia Ann) Rheumatology Care Team: None on file Recent Office Visits - This Specialty 03/15/2024 Osteopenia of multiple sites [facility] Obdulia Ann PA-C 12/25/2023 Systemic lupus erythematosus, unspecified SLE type, unspecified organ involvement status([facility]) Rheumatology Nadege Murphy DO 10/13/2023 Osteopenia, unspecified location [facility] Obdulia Ann PA-C Upcoming Rheumatology Appointments - Next 365 Days Visit Type Date Time Department [facility] 07/11/2024 2:00 PM RHEU MAIN A50 [...] Open Future (Single Instance) Lab Orders None [facility]07-30-20[facility] History of Present illness Narrative* Jayleen [...] PATIENT PRESENTS WITH AN IMPLANTABLE OR ATTACHED COMPOUNDER: No RADIOLOGY DEPARTMENT: General X-ray: Exam(s) Completed: Lower Extremity X- Ray(s): Knee, AP / LAT Left PERIPHERAL IV DATA: Not applicable SIGNED BY: RT Albino(R) March 15, 2024 3:40 PM documented in this encounterOhiohealth Shelby Hospital07-30-2024 History of Present illness Narrative* Obdulia Ann PA-C - 03/15/2024 2:29 PM EDT Images from the original note were not included. Osteoporosis and Metabolic Bone Disease Date of Service: 03/15/2024 Patient: Jesus Wolf Medical Record: [id number] Primary Care Physician: Wojciech Treviño MD, DO [...] use (Comment: Daily steroid uses from about [id number]) Previous use No rheumatoid arthritis Secondary osteoporosis [...] years, Gender: Female SCANNER INFORMATION: DXA Model: [id number] (S/N: [id number]) Date Scanned: 03/15/2024 2:20 PM CLINICAL HISTORY: DIAGNOSTIC Osteopenia, unspecified location S/P parathyroidectomy S/P parathyroidectomy alf (current) use of 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. RISK FACTORS FOR [...] had a previous bone density in the [facility] or the previous bone density was performed on a different DXA machine (new, updated model or different location) within the [facility]. VERTEBRAL FRACTURE ASSESSMENT Indication for VFA: [...] FOR MORE INFORMATION ABOUT DIAGNOSIS AND TREATMENT: [facility] for Osteoporosis and Metabolic Bone Disease:? www.ccf.org/arthritis/osteo National Osteoporosis Foundation:? www.nof.org International Society of Clinical Densitometry www.iscd.org Cylinder Loader: [id number] Transcribe Date/Time: Mar 15 2024 2:24P Dictated [...] TUNNEL RIGHT WRIST surgical correction COLONOSCOPY 05/10/2019 [facility] Gastro COLONOSCOPY GEN ANES 07/23/2020 Dr. Frances/Diverticulosis/Hemorrhoids/ Ulcerative Colitis/Rpt in 2 yrs. COLONOSCOPY SCREENING 03/2023 EGD EUS 01/11/2020 [facility] Gastro LASIK Right prior to 1999 MRI [...] - Calcium Replacement/Vitamin D Combinations Start End rfmwdce-niiqavdzk-phfmyvc D3 500 mg-5 mcg (200 unit) per tablet 08/27/2022 -- Sig - Route: Take 1 tablet by mouth three times daily. - ORAL Class: OTC Vitamins - D Derivatives Start End Cholecalciferol, Vitamin D3, 2,000 unit cap -- Sig - Route: Take by mouth once daily. - ORAL Class: Historical Med Multivitamin and Mineral Combinations Start End MV with Ave-Yolaffgd-Pfdxhl (CENTRUM SILVER) 0.4 mg-300 mcg- 250 mcg tab -- Sig - Route: Take 1 tablet by mouth once daily. - ORAL Class: Historical Med Minerals and Electrolytes - Calcium Replacement/Vitamin D Combinations Start End jffkcdt-ljfmpnouy-kyhlfjm D3 500 mg-5 mcg (200 unit) per [...] every 4 hours as needed for pain. tvwkubt-rbcpdnwvt-zrcahit D3 500 mg-5 mcg (200 unit) per tablet Take 1 tablet by mouth three times daily. MV with Hgq-Scxhxvsv-Umrdik (CENTRUM SILVER) 0.4 mg-300 mcg- 250 mcg [...] use (Comment: Daily steroid uses from about 1839-2186) Previous use No rheumatoid arthritis Secondary osteoporosis Malabsorption No alcohol use more than 3 units per day FRAX (WHO 10 Year Fracture Risk) Date of FRAX assessment: 05/12/22 Hip: 1.6% Major Osteoporotic: 10% Diagnoses: (M85.89) Osteopenia of multiple sites (primary encounter diagnosis) (Z98.890, Z90.89) S/P parathyroidectomy (Z79.83) emt intermediate (current) use of 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 (M25.562) Acute pain [...] which included preparing to see the patient, gekk-cj-gjig patient care, completing clinical documentation, obtaining and/or reviewing separately obtained history, performing a medically appropriate examination, counseling and educating the pat ient/family/caregiver, and ordering medications, tests, or procedures. Obdulia Ann PA-C Date: March 15, 2024 documented in this encounterOhiohealth Shelby Hospital07-30-2024 History of Present illness Narrative* Belkis [...] PATIENT PRESENTS WITH AN IMPLANTABLE OR ATTACHED COMPOUNDER: No RADIOLOGY DEPARTMENT: Bone Density PERIPHERAL IV DATA: Not applicable SIGNED BY: RT Butch(R) March 15, 2024 1:36 PM documented in this encounterOhiohealth Shelby Hospital07-22-2024 Telephone encounter Note * Telephone Encounter [...] Open Future (Single Instance) Lab Orders None [facility] Miscellaneous Notes* Telephone Encounter - Sergo [...] Instance) Lab Orders None documented in this encounterOhiohealth Shelby Hospital07-19-2024 Telephone encounter Note * Telephone Encounter - Bang Spears RN - 03/04/2024 3:08 PM EDT Spoke to the patient. Refill was sent to [facility] in [place] around 2:30 pm today. Pt verbalized understanding. Bang Spears RN [facility]07-19-[facility]24 Miscellaneous Notes* Telephone Encounter - Bang Spears RN - 03/04/2024 3:08 PM EDT Spoke to the patient. Refill was sent to [facility] in [place] around 2:30 pm today. Pt verbalized understanding. Bang Spears RN documented in this encounterOhiohealth Shelby Hospital07-19-2024 Telephone encounter Note * Telephone Encounter [...] Kath Kenney March 04, 2024 10:47 AM [facility]-19-[facility] Miscellaneous Notes* Telephone Encounter - Kath [...] 04, 2024 10:47 AM documented in this encounterOhiohealth Shelby Hospital07-09-2024 History of Present illness Narrative* Arianne [...] or open sores? No documented in this encounterOhiohealth Shelby Hospital07-08-2024 Telephone encounter Note * Telephone Encounter - Janis Crenshaw RN - 02/22/2024 9:44 AM EDT Spoke with patient on the phone and confirmed scheduled infusion for tomorrow. Denies s/s of infection. [facility]-08-[facility] Miscellaneous Notes* Telephone Encounter - Janis Crenshaw RN - 02/22/2024 9:44 AM EDT Spoke with patient on the phone and confirmed scheduled infusion for tomorrow. Denies s/s of infection. documented in this encounterOhiohealth Shelby Hospital07-03-2024 Telephone encounter Note * Telephone Encounter [...] Procedure:COLON 04-02-23 Next Procedure:NA Selin Frias MA [facility]07-03-2024 Miscellaneous Notes* Telephone Encounter - Selin [...] Procedure:NA Selin Frias MA documented in this encounterOhiohealth Shelby Hospital07-02-2024 Miscellaneous Notes* Telephone Encounter - Liz Phillips - 02/16/2024 3:31 PM EDT Patient needs parking placard, would like to have tomorrow so she can get placards by end of week * Telephone Encounter - Wojciech Treviño DO - 02/16/2024 3:31 PM EDT Okay. Letter printed to pear picker. Please set up a general recheck * Telephone Encounter - Liz Phillips - 02/16/2024 3:31 PM EDT Called for pear picker documented [facility] Telephone encounter Note* Telephone Encounter - Liz Phillips - 02/16/2024 3:31 PM EDT Patient needs parking placard, would like to have tomorrow so she can get placards by end of week [facility]07-02-[facility] Telephone encounter Note* Telephone Encounter - Wojciech Treviño DO - 02/16/2024 3:31 PM EDT Okay. Letter printed to pear picker. Please set up a general recheck [facility]-02-[facility] Telephone encounter Note* Telephone Encounter - Liz Phillips - 02/16/2024 3:31 PM EDT Called for pear picker [facility] History of Present illness Narrative* Wojciech [...] Do you have a durable power of trademark attorney?: (!) No Cognitive Screening Do you [...] of multiple problems anytime documented in this encounterOhio [facility] Hospital07-01-2024 History of Present illness Narrative* Christian Kaur, PIPE PROCESSOR-JEWELRY MAKER - 02/15/2024 4:30 PM EDT Subjective Jesus Wolf is a 68 y.o. female. Chief Complaint: Atrial Fibrillation 68 year old female presents today for 1 month follow up post Afib Ablation. PMH includes: MONI, Systemic lupus, in remission, on medical therapy with hydroxychloroquine, morbidobesity, hyperlipidemia, HTN, History of hypercalcemia caused by hyperparathyroidism status post parathyroidectomy last year at the [facility] with success, Ascending aortic aneurysm measured 4.6 [...] back to NSR spontaneously. She uses a Rhapsody mobile device and statesshe is going in [...] any questions or concerns. documented in this encounterParma [facility] Work Phone: [phone]) 423-107105-24-2024 Telephone encounter Note* Telephone Encounter - Shae [...] Sig: TAKE 1 BY MOUTH TWICE DAILY [facility] Miscellaneous Notes* Telephone Encounter - Shea Burdick MA - 01/08/2024 11:26 AM EDT [...] BY MOUTH TWICE DAILY documented in this encounterOhiohealth Shelby Hospital05-21-2024 Hospital Discharge instructions* Discharge Instructions* John [...] up with your primary care physician, primary economic research analyst, and any other specialists you normally see. [...] of these symptoms become excessive, contact your vice president of product marketing or go to the emergency room. No [...] CNP ( Electrophysiology) 1 month after ablation Terrazzo Supervisor will notify you of appointment. If you haven't heard in 1 week, please call [phone] documented in this encounterParma [facility] Hospital Work Phone: [phone]) 715-361405-21-2024 Hospital Note* Hospital Course - John Mora PA-C - 01/05/2024 8:21 AM EDT [facility] Work Phone: 1(785) 949-104305-21-2024 Miscellaneous Notes* Hospital Course - John Mora PA-C - 01/05/2024 8:21 AM EDT documented in this encounterParma [facility] Hospital Work Phone: [phone]) 953-215705-21-2024 History of Present illness Narrative* Charu Chavez, PharmD - 01/05/2024 7:49 AM EDT Pharmacy Medication History Review Jesus Wolf is a 68 y.o. female admitted for Persistent atrial fibrillation (Multi). Pharmacy reviewed the patient's nrzor-hq-rozunxeeb medications and allergies for accuracy. The list below reflects the updated INSIGHTS STRATEGIST list. Comments regarding how patient may be [...] at discharge. Pharmacy has been updated to [facility]. M2B service not offered prior to surgery, please reassess prior to patient discharge if Meds to Beds is desired. Sources used to complete the med history include: Patient interview - had list of medications/ Pharmacy - [facility]/ chart review - Cardiology visit 11/16/23, [facility] clinical summary Charu Chavez PharmD Transitions of Care Pharmacist Meds Ambulatory and Retail Services Please reach out via Secure Chat for questions, or if no response call Casentric or Net[employer]endRec documented in this [facility] Work Phone: 1([phone] 289-951705-21-2024 History and physical note* Khoa Key MD - 01/05/2024 7:17 AM EDT History Of Present Illness Jesus Wolf is a 68 y.o. female with PMH of MONI, Systemic lupus, in remission, on medical therapy with hydroxychloroquine. Managed by the [facility], morbid obesity, hyperlipidemia, HTN, History of hypercalcemia caused by hyperparathyroidism status [facility], Ascending aortic aneurysm measured 4.6 [...] back to NSR spontaneously. She uses a Rhapsody mobile device and statesshe is going in [...] care of this patient. Khoa Key MD [facility] Work Phone: 1([phone]) [phone] History and physical note* Khoa Key MD - 01/05/2024 7:17 AM EDT History Of Present Illness Jesus Wolf is a 68 y.o. female with PMH of MONI, Systemic lupus, in remission, on medical therapy with hydroxychloroquine. Managed by the [facility], morbid obesity, hyperlipidemia, HTN, History of hypercalcemia caused by hyperparathyroidism status [facility], Ascending aortic aneurysm measured 4.6 [...] back to NSR spontaneously. She uses a Rhapsody mobile device and statesshe is going in [...] patient. Khoa Key MD documented in this [facility] Work Phone: [phone] History of Present illness Narrative* Radu Salazar MD - 12/29/2023 9:27 AM EDT [facility] SERVICE DATE: December [...] at home, as above, was low at economic research analyst office so spironolactone was stopped PAST MEDICAL [...] TUNNEL RIGHT WRIST surgical correction COLONOSCOPY 05/10/2019 [facility] Gastro COLONOSCOPY GEN ANES 07/23/2020 Dr. Frances/Diverticulosis/Hemorrhoids/ Ulcerative Colitis/Rpt in 2 yrs. COLONOSCOPY SCREENING 03/2023 EGD EUS 01/11/2020 [facility] Gastro LASIK Right prior to 1999 MRI [...] every 4 hours as needed for pain. bpvcmeb-sdxndtkty-lkrkcbd D3 500 mg-5 mcg (200 unit) per [...] not taking: Reported on 10/13/2023) MV with Rvx-Cpnsbrqa-Lwfrtq (CENTRUM SILVER) 0.4 mg-300 mcg- 250 mcg [...] 5.5 4.3 - 5.6 % Final Comment: [place] [employer] guidelines indicate that patients with HgbA1c in the range 5.7-6.4% are at increased risk for development of diabetes, and intervention by lifestyle modification may be beneficial. HgbA1c greater or equal to 6.5% is considered diagnostic of diabetes. 03/09/2019 5.5 4.3 - 5.6 % Final Comment: [place] [employer] guidelines indicate that patients with [...] Range Status 12/28/2023 6.0 <8.5 Final Specific Gautier, Ur Date Value Ref Range Status 12/28/2023 [...] is aware to call or communicate via Origami Logichart with any questions/ concerns Also discussed ER evaluation if there are any concerning symptoms, or uncontrolled blood pressure I spent a total of 45 minutes on the date of the service which included preparing to see the patient, irin-oh-bmxs patient care, completing clinical documentation, obtaining and/or reviewing separately obtained history, performing a medically appropriate examination, counseling and educating the pat ient/family/caregiver, and ordering medications, tests, or procedures. SIGNATURE: Radu Salazar MD, FACP, NATE PATIENT NAME: Jesus Wolf DATE: December 29, 2023 TIME: 9:27 AM OFFICE NUMBER: [phone] documented in this encounterOhiohealth Shelby Hospital05-14-2024 Evaluation note* Diagnosis Stage 3a chronic kidney disease (HCC)- Primary Membranous glomerulonephritis Nephritis and nephropathy, not specified as acute or chronic, with lesion of membranous glomerulonephritis Lupus nephritis, ISN/RPS class V (HCC) Screening for genitourinary condition Screening for other and unspecified genitourinary condition Hypertension, unspecified type documented in this encounter [facility]05-10-[facility] Telephone encounter Note* Telephone Encounter - Coco Miles - 12/25/2023 3:46 PM EDT Patient has been scheduled for 02/23/2024 [facility]05-10-[facility] Telephone encounter Note* Telephone Encounter - Coco Miles - 12/25/2023 3:46 PM EDT ----- Message from Carley Reich sent at 12/25/2023 11:43 AM EDT ----- Ok Edi Team, Dr. Murphy is changing her benlysta infusions to every 2 months. Could you please reach out to this patient and move up her 03/17/24 infusion to the first week in February? Thank you! ----- Message ----- From: Nadege Murphy DO Sent: 12/25/2023 10:17 AM EDT To: Leelee Ramires [facility]; # Taty, can we please increase these infusions to every 2 months? Can we also give her 40 mg IVMP and NOT 60? She goes to [facility] Thank you! [facility]05-10-[facility] Miscellaneous Notes* Telephone Encounter - Coco Miles - 12/25/2023 3:46 PM EDT Patient has been scheduled for 02/23/2024 * Telephone Encounter - Coco Miles - 12/25/2023 3:46 PM EDT ----- Message from Carley Reich sent at 12/25/2023 11:43 AM EDT ----- Ok Edi Team, Dr. Murphy is changing her benlysta infusions to every 2 months. Could you please reach out to this patient and move up her 03/17/24 infusion to the first week in February? Thank you! ----- Message ----- From: Nadege Murphy DO Sent: 12/25/2023 10:17 AM EDT To: Leelee Ramires [facility]; # Taty, can we please increase these infusions to every 2 months? Can we also give her 40 mg IVMP and NOT 60? She goes to [facility] Thank you! documented in this encounterOhiohealth Shelby Hospital05-10-2024 History of Present illness Narrative* Nadege Murphy - 12/25/2023 10:00 AM EDT Images from the original note were not included. [facility] DEPARTMENT OF [...] TUNNEL RIGHT WRIST surgical correction COLONOSCOPY 05/10/2019 [facility] Gastro COLONOSCOPY GEN ANES 07/23/2020 Dr. Frances/Diverticulosis/Hemorrhoids/ Ulcerative Colitis/Rpt in 2 yrs. COLONOSCOPY SCREENING 03/2023 EGD EUS 01/11/2020 [facility]astro LASIK Right prior to 1999 MRI [...] every 4 hours as needed for pain. ywimejc-hjffjcqsz-zuqpjij D3 500 mg-5 mcg (200 unit) per tablet Take 1 tablet by mouth three times daily. MV with Nvb-Ghmgshpi-Jznzfd (CENTRUM SILVER) 0.4 mg-300 mcg- 250 mcg [...] Murphy D.O. Rheumatology Staff documented in this encounterOhiohealth Shelby Hospital05-09-2024 History of Present illness Narrative* Janis [...] or open sores? No documented in this encounterOhiohealth Shelby Hospital05-07-2024 Instructions* Patient Instructions* Dione Frances MD - 12/22/2023 11:35 AM EDT Increase colestipol 3 pills twice a day documented in this encounterOhiohealth Shelby Hospital05-07-2024 History and physical note * Dione [...] Abs Lymph 1.00 - 4.00 k/uL 1.28 [place]% % 9.7 Abs [place] <0.87 k/uL 0.63 Eosin% % 2.9 Abs [...] TUNNEL RIGHT WRIST surgical correction COLONOSCOPY 05/10/2019 [facility]astro COLONOSCOPY GEN ANES 07/23/2020 Dr. Frances/Diverticulosis/Hemorrhoids/ Ulcerative Colitis/Rpt in 2 yrs. COLONOSCOPY SCREENING 03/2023 EGD EUS 01/11/2020 [facility] LASIK Right prior to 1999 MRI PANC/JEANIE WO/W IVCON 12/20/2019 OVARIAN CYSTECTOMY PAST SURGICAL HISTORY OF 07/2013 bilateral foot procedure, [place] PAST SURGICAL HISTORY OF 2018,2019 Ablation X2 [...] every 4 hours as needed for pain. yecihxe-eyxdkgxej-fmggocv D3 500 mg-5 mcg (200 unit) per tablet Take 1 tablet by mouth three times daily. MV with Ysp-Xrnswknc-Kcmwka (CENTRUM SILVER) 0.4 mg-300 mcg- 250 mcg [...] No history of dysuria, frequency or incontinence PIPE WELDER: Negative for abnormal vaginal bleeding, abnormal vaginal [...] This note was partially generated using the The Sea App voice recognition system, there may be some incorrect words, spellings, and punctuation that were not noted in checking the note before saving [facility] History and physical note* Dione Frances [...] Abs Lymph 1.00 - 4.00 k/uL 1.28 [place]% % 9.7 Abs [place] <0.87 k/uL 0.63 Eosin% % 2.9 Abs [...] TUNNEL RIGHT WRIST surgical correction COLONOSCOPY 05/10/2019 [facility] COLONOSCOPY GEN ANES 07/23/2020 Dr. Frances/Diverticulosis/Hemorrhoids/ Ulcerative Colitis/Rpt in 2 yrs. COLONOSCOPY SCREENING 03/2023 EGD EUS 01/11/2020 [facility]astro LASIK Right prior to 1999 MRI PANC/JEANIE WO/W IVCON 12/20/2019 OVARIAN CYSTECTOMY PAST SURGICAL HISTORY OF 07/2013 bilateral foot procedure, [place] PAST SURGICAL HISTORY OF Ablation X2 TONSILLECTOMY [...] every 4 hours as needed for pain. ylvqmyt-muesljoir-khshvgl D3 500 mg-5 mcg (200 unit) per tablet Take 1 tablet by mouth three times daily. MV with Xow-Ubgwwsbl-Kidksv (CENTRUM SILVER) 0.4 mg-300 mcg- 250 mcg [...] No history of dysuria, frequency or incontinence PIPE WELDER: Negative for abnormal vaginal bleeding, abnormal vaginal [...] This note was partially generated using the [employer] App voice recognition system, there may be some incorrect words, spellings, and punctuation that were not noted in checking the note before saving documented in this encounterOhiohealth Shelby Hospital04-30-2024 Telephone encounter Note * Telephone Encounter - Bang Spears RN - 12/15/2023 10:09 AM EDT Pharmacy escripts requesting the following refill: Requested Prescriptions Pending Prescriptions Disp Refills ferrous sulfate (IRON) 325 mg (65 mg iron) tablet 90 tablet 3 Sig: Take 1 tablet by mouth once daily. Please review and advise. Bang Spears RN [facility]04-30-2024 Miscellaneous Notes* Telephone Encounter - Bang Spears RN - 12/15/2023 10:09 AM EDT Pharmacy escripts requesting the following refill: Requested Prescriptions Pending Prescriptions Disp Refills ferrous sulfate (IRON) 325 mg (65 mg iron) tablet 90 tablet 3 Sig: Take 1 tablet by mouth once daily. Please review and advise. Bang Spears RN documented in this encounterOhiohealth Shelby Hospital04-23-2024 History of Present illness Narrative* Beverly [...] with uninfected necrosis SLE (systemic lupus erythematosus) ([facility]) Sleep apnea 07/29/2012 PAST SURGICAL HISTORY Procedure Laterality Date APPENDECTOMY CARPAL TUNNEL RIGHT WRIST surgical correction COLONOSCOPY 05/10/2019 [facility] COLONOSCOPY GEN ANES 07/23/2020 Dr. Frances/Diverticulosis/Hemorrhoids/ Ulcerative Colitis/Rpt in 2 yrs. COLONOSCOPY SCREENING 03/2023 EGD EUS 01/11/2020 [facility] Gastro LASIK Right prior to 1999 MRI PANC/JEANIE WO/W IVCON 12/20/2019 OVARIAN CYSTECTOMY PAST SURGICAL HISTORY OF 07/2013 bilateral foot procedure, [place] PAST SURGICAL HISTORY OF Ablation X2 TONSILLECTOMY [...] every 4 hours as needed for pain. yswicpu-ytqnhfxzy-qqemnqh D3 500 mg-5 mcg (200 unit) per tablet Take 1 tablet by mouth three times daily. MV with Gnp-Xpukzpxg-Oceyky (CENTRUM SILVER) 0.4 mg-300 mcg- 250 mcg [...] options conservative and surgical, prognosis, short and group home expectations, and benefit, and potential risks [...] AM Beverly Franco DPM documented in this encounterOhiohealth Shelby Hospital04-11-2024 Procedure [facility]04-[facility] History of Present illness Narrative* Juan Chino [...] medical therapy with hydroxychloroquine. Managed by the [facility], morbid obesity, hyperlipidemia, HTN, History of hypercalcemia caused by hyperparathyroidism status post parathyroidectomy last year at the [facility] with success, Ascending aortic aneurysm measured 4.6 [...] back to NSR spontaneously. She uses a Rhapsody mobile device and statesshe is going in [...] MD Chap[place]ito Brown Master Clinician of Cardiovascular [place]. [facility] [place]. Director of Electrophysiology Center melter supervisor oxygen furnace. [employer]. documented in this encounterUnProtestant [facility]acon[facility] Work Phone: [phone]) 517-904003-25-2024 History of Present illness Narrative* Kalyn Anthony [...] m (5' 7 ) documented in this encounterUnProtestant Deaconess Hospital Work Phone: 1(454) 447-646303-14-2024 History of Present illness Narrative* Yuriy Conway [...] ablation with pulmonary vein isolation at [facility] in 2019. Patient seems to be in [...] was normal. Recent lab data from the [facility] werereviewed creatinine 1.0. 2. Sleep apnea, unable to utilize CPAP machine. She utilizes oxygen at night. 3. Systemic lupus, in remission, on medical therapy with hydroxychloroquine. Managed by the [facility] 4. Morbid obesity, patient is trying [...] status post parathyroidectomy last year at the [facility] with success 10. Ascending aortic aneurysm measured 4.6 cm from echocardiogram September 2021, follow-up echocardiogram in 2021 measured only 3.8 cm Yuriy Conway MD, [facility] Review of Systems Cardiovascular: Positive for [...] risk medication use 3. Essential hypertension 4. emt intermediate current use of anticoagulant therapy 5. Obstructive sleep apnea 6. BMI 40.0-44.9, adult ([facility]) 7. Never smoked any substance 8. Systemic lupus erythematosus, unspecified SLE type, unspecified organ involvement status ([facility]) Scribe Attestation By signing my name below, [...] exam, discussion and plan. documented in this encounterParma Community General Hospital Work Phone: 1(465) 616-485103-14-2024 Instructions* Patient Instructions* Kalyn Anthony LPN - [...] time of your visit. documented in this encounterParma Community General Hospital Work Phone: 1(611) 281-695803-12-2024 Miscellaneous Notes* Telephone Encounter - Anastasiya Jackman - 10/27/2023 3:34 PM EDT [facility] [place]. Scanned in chart for review. documented in this encounterOhiohealth Shelby Hospital03-08-2024 Miscellaneous Notes* Allied Health - Franck [...] PATIENT PRESENTS WITH AN IMPLANTABLE OR ATTACHED COMPOUNDER: No RADIOLOGY DEPARTMENT: MR; Exam(s) Completed: Body: Pancreas/Biliary PERIPHERAL IV DATA: Site assessment: Clean,Dry and Intact, Site disposition Discontinued SIGNED BY: RT Monica(Sandra) October 23, 2023 12:45 PM documented in this encounterOhiohealth Shelby Hospital03-08-2024 Nurse Note* Chantelle Grace RN - [...] 2023 TIME: 11:37 AM documented in this encounterOhiohealth Shelby Hospital02-27-2024 History of Present illness Narrative* Obdulia Ann PA-C - 10/13/2023 10:31 AM EST Images from the original note were not included. Osteoporosis and Metabolic Bone Disease Date of Service: 10/13/2023 Patient: Jesus Wolf Medical Record: [id number] Primary Care Physician: Wojciech Treviño MD, DO [...] for L foot due to severe OA. Logistics Engineer is trailing 6 weeks in the boot. If symptoms improve, medical translator will prescribe a brace otherwise will discuss [...] use (Comment: Daily steroid uses from about 4334-1601) Previous use No rheumatoid arthritis Secondary osteoporosis [...] DIAGNOSTIC Asymptomatic postmenopausal status . DXA Model: Conferensum (S/N: [id number]) SITE SCANNED: Lumbar Spine, Left Hip, & [...] should take calcium, the recommended dose is 5287-3702 mg per day along with 800-1000 IU vitamin D (some patients may require higher doses of vitamin D). LIMITATIONS: - Degenerative changes in the spine may artificially increase bone mass and make the reading unreliable FOLLOW-UP: - 2-years cc. Dr. Hardin Cylinder Loader: findin Transcribe Date/Time: Mar 13 2022 3:34P [...] TUNNEL RIGHT WRIST surgical correction COLONOSCOPY 05/10/2019 [facility] Gastro COLONOSCOPY GEN ANES 07/23/2020 Dr. Frances/Diverticulosis/Hemorrhoids/ Ulcerative Colitis/Rpt in 2 yrs. COLONOSCOPY SCREENING 03/2023 EGD EUS 01/11/2020 [facility] Gastro LASIK Right prior to 1999 MRI [...] - Calcium Replacement/Vitamin D Combinations Start End byxbekl-wvjdfkivv-brpluql D3 500 mg-5 mcg (200 unit) per tablet 08/27/2022 -- Sig - Route: Take 1 tablet by mouth three times daily. - ORAL Class: OTC Vitamins - D Derivatives Start End Cholecalciferol, Vitamin D3, 2,000 unit cap -- Sig - Route: Take by mouth once daily. - ORAL Class: Historical Med Multivitamin and Mineral Combinations Start End MV with Sux-Eurshqno-Zigbbc (CENTRUM SILVER) 0.4 mg-300 mcg- 250 mcg tab -- Sig - Route: Take 1 tablet by mouth once daily. - ORAL Class: Historical Med Minerals and Electrolytes - Calcium Replacement/Vitamin D Combinations Start End kptvqpq-utcwkbawp-qeonjgy D3 500 mg-5 mcg (200 unit) per [...] Take 1 tablet by mouth once daily. tdbsvjx-qxlztogeb-xwztkuh D3 500 mg-5 mcg (200 unit) per tablet Take 1 tablet by mouth three times daily. MV with Lun-Rlqaishr-Xksyab (CENTRUM SILVER) 0.4 mg-300 mcg- 250 mcg [...] use (Comment: Daily steroid uses from about 5088-1404) Previous use No rheumatoid arthritis Secondary osteoporosis Malabsorption No alcohol use more than 3 units per day FRAX (WHO 10 Year Fracture Risk) Date of FRAX assessment: 05/12/22 Hip: 1.6% Major Osteoporotic: 10% Diagnoses: (M85.80) Osteopenia, unspecified location (primary encounter diagnosis) (Z98.890, Z90.89) S/P parathyroidectomy (Z79.83) emt intermediate (current) use of 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 (E55.9) Vitamin D [...] Date: October 13, 2023 documented in this encounterOhiohealth Shelby Hospital02-23-2024 History of Present illness Narrative* Selin [...] TUNNEL RIGHT WRIST surgical correction COLONOSCOPY 05/10/2019 [facility] Gastro COLONOSCOPY GEN ANES 07/23/2020 Dr. Frances/Diverticulosis/Hemorrhoids/ Ulcerative Colitis/Rpt in 2 yrs. COLONOSCOPY SCREENING 03/2023 EGD EUS 01/11/2020 [facility] Gastro LASIK Right prior to 1999 MRI [...] every 4 hours as needed for pain. cepyqgk-jukzcwoqf-rxmdequ D3 500 mg-5 mcg (200 unit) per tablet Take 1 tablet by mouth three times daily. MV with Ahg-Mulqhgaf-Sqhrce (CENTRUM SILVER) 0.4 mg-300 mcg- 250 mcg [...] navicular cuneiform articulation left, 1-3 right with lvba-bm-vwobjbnaf space loss and periarticular subchondral sclerotic changes, cystic changes left Assessment/Plan ASSESSMENT Diagnosis (L84) Pre-ulcerative calluses (primary encounter diagnosis) (M19.072) Osteoarthritis of midtarsal joint of left foot (M19.071) Osteoarthritis of midtarsal joint of right foot No orders found for this visit on 10/09/23. PLAN Reviewed complaint, pathology, etiology, x-rays, anatomy, treatment options conservative and surgical, prognosis, short and group home expectations, associated with each complaint, finding, related [...] PM Beverly Franco DPM documented in this encounterOhiohealth Shelby Hospital02-15-2024 History of Present illness Narrative* Janis [...] or open sores? No documented in this encounterOhiohealth Shelby Hospital02-14-2024 Miscellaneous Notes* Telephone Encounter - Beba Liriano - 09/30/2023 4:03 PM EST Patient calling asking about imaging for pancreas. She was due 07/2023. Asking for order to be placed # [phone] documented in this encounterOhiohealth Shelby Hospital02-14-2024 Miscellaneous Notes* Telephone Encounter - Janis Crenshaw RN - 09/30/2023 1:46 PM EST Spoke with patient on phone and confirmed patient will be in tomorrow for scheduled infusion. * Telephone Encounter - Janis Crenshaw RN - 09/30/2023 10:09 AM EST LMOM for patient to call back and confirm scheduled infusion. documented in this encounterOhiohealth Shelby Hospital02-01-2024 History of Present illness Narrative* Yuriy [...] stable on medical therapy followed by the [facility]. She has been chronically anticoagulated with Eliquis and has been compliant ASSESSMENT AND PLAN: 1. Paroxysmal atrial fibrillation, status post radiofrequency ablation with pulmonary vein isolation at [facility] in 2019. Now she is back in [...] remission, on medical therapy. Managed by the [facility] 4. Morbid obesity, patient is trying [...] status post parathyroidectomy last year at the [facility] with success 10. Ascending aortic aneurysm measured 4.6 cm from echocardiogram September 2021, follow-up echocardiogram in 2021 measured only 3.8 cm Yuriy Conway MD, [facility] Review of Systems All other systems [...] of Yuriy Conway MD. documented in this encounterPar[facility] Work Phone: 1(309) 555-839902-01-2024 Instructions* Patient Instructions* Buster Clay MA - [...] time of your visit. documented in this encounterParma [facility] Hospital Work Phone: 1(824) 852-845601-16-2024 History of Present illness Narrative* Cha Staley APRN-CONSUELO - 09/01/2023 1:00 PM EST Subjective Patient [...] Staley APRN-CONSUELO 09/01/23 1350 documented in this encounterOhio [facility]12-04-2023 Miscellaneous Notes* Telephone Encounter - Lisa Ramos - 07/20/2023 2:59 PM EST Spoke to patient and she is scheduled for bilateral cortisone injection at [facility] for 08/03/23 documented in this encounterOhiohealth Shelby Hospital11-21-2023 Miscellaneous Notes* Telephone Encounter - Olga Amado - 07/07/2023 3:24 PM EST [facility] requesting call back to schedule (surgery)with Dr. Jones. Left direct number to return call.[phone] documented in this encounterOhiohealth Shelby Hospital11-16-2023 History of Present illness Narrative* Beverly Franco DPM - 07/02/2023 11:37 AM EST SERVICE DATE: July 02, 2023 PCP: Wojciech Treviño MD, DO Subjective Patient ID: Jesus is a 68 year old female. Patient presents today with complaint of pain in her left midfoot on the medial side which started several weeks ago while she is in [place] at the [employer] and on her feet an extensive amount [...] TUNNEL RIGHT WRIST surgical correction COLONOSCOPY 05/10/2019 [facility] Gastro COLONOSCOPY GEN ANES 07/23/2020 Dr. Frances/Diverticulosis/Hemorrhoids/ Ulcerative Colitis/Rpt in 2 yrs. COLONOSCOPY SCREENING 03/2023 EGD EUS 01/11/2020 [facility] Gastro LASIK Right prior to 1999 MRI [...] every 4 hours as needed for pain. agafmqo-lsqdcnstt-hqlqrmm D3 500 mg-5 mcg (200 unit) per tablet Take 1 tablet by mouth three times daily. 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 No documented in this encounterOhiohealth Shelby Hospital10-31-2023 Miscellaneous Notes* Telephone Encounter - Bang Spears RN - 06/16/2023 11:54 AM EDT Pharmacy escripts requesting the following refill: Requested Prescriptions Pending Prescriptions Disp Refills pantoprazole DR (PROTONIX) 40 mg tablet [Pharmacy Med Name: PANTOPRAZOLE SOD DR 40 MG TAB] 60 tablet 3 Sig: take 1 tablet by mouth twice a day Please review and advise. Bang Spears RN documented in this encounterOhiohealth Shelby Hospital10-26-2023 Miscellaneous Notes* Telephone Encounter - Heather Gruber PA-C - 06/11/2023 4:06 PM EDT Prescription sent to the pharmacy Heather Gruber PA-C * Telephone Encounter - Agatha Wing - 06/10/2023 11:09 AM EDT Patient needs to have a dental procedure and needs an antibiotic. Patient states you are the last orthopedic surgeon she seen. Please send prescription to the [facility] in [facility]. patient would like to be notified when prescription has been sent in. Please advise documented in this encounterOhiohealth Shelby Hospital09-01-2023 Miscellaneous Notes* Telephone Encounter - Bang Spears RN - 04/17/2023 9:02 AM EDT Pharmacy escripts requesting the following refill: Requested Prescriptions Pending Prescriptions Disp Refills colestipol (COLESTID) 1 gram tablet [Pharmacy Med Name: COLESTIPOL HCL 1 GM TABLET] 360 tablet 3 Sig: TAKE 2 TABLETS BY MOUTH TWICE A DAY Please review and advise. Bang Spears RN documented in this encounterOhiohealth Shelby Hospital08-30-2023 History and physical note * Dione Frances MD - 04/15/2023 9:20 AM EDT FOLLOW UP OFFICE VISIT REASON FOR VISIT: follow up UC HPI: Jesus Wolf is a 68 year old female who presents for follow up UC. After colonoscopy 2 weeks ago, she was in the ER several times with migraine headaches. She was in the [facility] on vacation. It is likely these [...] Abs Lymph 1.00 - 4.00 k/uL 2.04 [place]% % 11.0 Abs [place] <0.87 k/uL 0.92 (H) Eosin% % 3.1 [...] TUNNEL RIGHT WRIST surgical correction COLONOSCOPY 05/10/2019 [facility] Gastro COLONOSCOPY GEN ANES 07/23/2020 Dr. Frances/Diverticulosis/Hemorrhoids/ Ulcerative Colitis/Rpt in 2 yrs. EGD EUS 01/11/2020 [facility]astro LASIK Right prior to 1999 MRI PANC/JEANIE WO/W IVCON 12/20/2019 [facility] CYSTECTOMY PAST SURGICAL HISTORY OF 07/2013 bilateral foot procedure, [place] PAST SURGICAL HISTORY OF Ablation X2 TONSILLECTOMY [...] every 4 hours as needed for pain. xkpdmxl-qocputatu-emjhzpp D3 500 mg-5 mcg (200 unit) per tablet Take 1 tablet by mouth three times daily. 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: Negative for abnormal vaginal bleeding, abnormal vaginal [...] This note was partially generated using the [employer] voice recognition system, there may be some incorrect words, spellings, and punctuation that were not noted in checking the note before saving documented in this encounterOhiohealth Shelby Hospital08-30-2023 Instructions* Patient Instructions* Dione Frances MD - 04/15/2023 9:13 AM EDT Continue mesalamine Continue canasa suppositories (can go down to as needed eventually) Continue protonix Continue colestipol documented in this encounterOhiohealth Shelby Hospital08-25-2023 History of Present illness Narrative* Nadege Murphy DO - 04/10/2023 9:30 AM EDT Images from the original note were not included. [facility] DEPARTMENT OF [...] TUNNEL RIGHT WRIST surgical correction COLONOSCOPY 05/10/2019 [facility] Gastro COLONOSCOPY GEN ANES 07/23/2020 Dr. Frances/Diverticulosis/Hemorrhoids/ Ulcerative Colitis/Rpt in 2 yrs. EGD EUS 01/11/2020 [facility] Gastro LASIK Right prior to 1999 MRI [...] 4 hours as needed for pain.^Disp: ^Rfl: ylmmkmo-nhrmefhgy-lrlntgi D3 500 mg-5 mcg (200 unit) per tablet^Take 1 tablet by mouth three times daily.^Disp: ^Rfl: MV with Xzt-Bhfanvnw-Bakhww (CENTRUM SILVER) 0.4 mg-300 mcg- 250 mcg [...] monitorin10/2022. Scanned into documents. RTC 6 months. Nadgee Murphy D.O. Rheumatology Staff documented in this encounterOhiohealth Shelby Hospital08-23-2023 Miscellaneous Notes* Telephone Encounter - Bang [...] prefers suppository or enema? documented in this encounterOhiohealth Shelby Hospital08-17-2023 History and physical note * Dione [...] 2023 TIME: 7:38 AM documented in this encounterOhiohealth Shelby Hospital08-03-2023 History of Present illness Narrative* Chantelle [...] or open sores? No documented in this encounterOhiohealth Shelby Hospital08-02-2023 Miscellaneous Notes* Telephone Encounter - Coco Guzman RN - 03/18/2023 3:15 PM EDT Spoke with pt; confirmed infusion for tomorrow. Denies s/sx of infection or antibiotics at this time. documented in this encounterOhiohealth Shelby Hospital07-31-2023 Miscellaneous Notes* Telephone Encounter - Bang Spears RN - 03/16/2023 10:32 AM EDT Pharmacy escripts requesting the following refill: Requested Prescriptions Pending Prescriptions Disp Refills Mesalamine (LIALDA) 1.2 gram EC tablet [Pharmacy Med Name: MESALAMINE DR 1.2 GM TABLET] 360 tablet 1 Sig: take 4 tablets by mouth once daily Please review and advise. Bang Spears RN documented in this encounterOhiohealth Shelby Hospital07-27-2023 History of Present illness Narrative* Beverly [...] Vitamin D Deficiency Sle (Systemic Lupus Erythematosus) ([facility]) Fibromyalgia Sleep Apnea Encounter for Long-Term [...] with uninfected necrosis SLE (systemic lupus erythematosus) ([facility]) Sleep apnea 07/29/2012 PAST SURGICAL HISTORY Procedure Laterality Date APPENDECTOMY CARPAL TUNNEL RIGHT WRIST surgical correction COLONOSCOPY 05/10/2019 [facility] Gastro COLONOSCOPY GEN ANES 07/23/2020 Dr. Frances/Diverticulosis/Hemorrhoids/ Ulcerative Colitis/Rpt in 2 yrs. EGD EUS 01/11/2020 [facility] Gastro LASIK Right prior to 1999 MRI PANC/JEANIE WO/W IVCON 12/20/2019 [facility]VARIAN CYSTECTOMY PAST SURGICAL HISTORY OF 07/2013 bilateral foot procedure, [place] PAST SURGICAL HISTORY OF Ablation X2 TONSILLECTOMY [...] 4 hours as needed for pain.^Disp: ^Rfl: krdttsz-qwjumlyey-awquyek D3 500 mg-5 mcg (200 unit) per tablet^Take 1 tablet by mouth three times daily.^Disp: ^Rfl: MV with Xpa-Quhndprq-Xptcnf (CENTRUM SILVER) 0.4 mg-300 mcg- 250 mcg [...] Medical image was obtained today and compared pmtg-nj-fmxj with previous image, findings and progress were discussed with patient. FOLLOW-UP: 10 weeks SIGNATURE: Beverly Franco DPM PATIENT NAME: Jesus Wolf DATE: March 12, 2023 TIME: 9:48 AM Beverly Franco DPM documented in this encounterOhiohealth Shelby Hospital07-05-2023 Miscellaneous Notes* Telephone Encounter - Mariana Sutton Vanessa - 2023 3:08 PM EDT Spoke to patient offered 03/09 or 03/23 at [place] patient declined as she has commitments on those datesas well. Patient is on wait list * Telephone Encounter - Sandra Irving Pss - 2023 2:55 PM EDT Jesus Ezio Wolf is calling Dione Frances MD today with concern regarding Appointment. Patient hoping to be able to have this done in [place], and when the soonest that would be. When I tried rescheduled it denied me. Please advise and call patient. Thank you! Patient has been identified by name and birthdate. Person calling: self Call patient at: at home [phone] (home) [phone] (cell) Was an appointment scheduled: No Closing statement: Results or non-symptom based questions: Thank you for calling [facility], your call will be returned within the next business day. Sandra Irving Pss documented in this encounterOhiohealth Shelby Hospital07-05-2023 Miscellaneous Notes* Telephone Encounter - Mariana [...] Frances, please review the order and sign. Terrazzo Supervisor, please call the patient to make arrangements. [...] the next 1-2 months documented in this encounterOhiohealth Shelby Hospital07-03-2023 Miscellaneous Notes* Telephone Encounter - Tarki Valdivia RN - 02/16/2023 1:14 PM EDT Most recent Rheumatology visit: 02/04/2023 (with Nadege Murphy) Recent Office Visits - This Specialty 02/04/2023 Systemic lupus erythematosus, unspecified SLE type, unspecified organ involvement status(HCC) Rheumatology Nadege Murhpy, DO 10/16/2022 Osteopenia, unspecified location [facility] [...] Expires Ordered Last Rel. C3 COMPLEMENT BLD [[id number]] 4/6 Every 4 months 03/13/23 03/13/22 06/30/22 Auth. provider: Evelin Alicea MD Assoc. diagnoses: Membranous lupus nephritis syndrome (HCC), High risk medication use, Systemic lupus erythematosus, unspecified SLE type, unspecified organ involvement status (HCC) C4 COMPLEMENT BLD [[id number]] 4/6 Every 4 months 03/13/23 03/13/22 06/30/22 [...] a day with food documented in this encounterOhiohealth Shelby Hospital06-29-2023 History of Present illness Narrative* Beverly [...] TUNNEL RIGHT WRIST surgical correction COLONOSCOPY 05/10/2019 [facility]astro COLONOSCOPY GEN ANES 07/23/2020 Dr. Frances/Diverticulosis/Hemorrhoids/ Ulcerative Colitis/Rpt in 2 yrs. EGD EUS 01/11/2020 [facility] Gastro LASIK Right prior to 1999 MRI [...] 4 hours as needed for pain.^Disp: ^Rfl: dormjlg-vwwnswjlv-jfkwaaw D3 500 mg-5 mcg (200 unit) per tablet^Take 1 tablet by mouth three times daily.^Disp: ^Rfl: MV with Fzt-Rsfjpblw-Auikml (CENTRUM SILVER) 0.4 mg-300 mcg- 250 mcg [...] AM Beverly Franco DPM documented in this encounterOhiohealth Shelby Hospital06-26-2023 Miscellaneous Notes* Telephone Encounter - Hallie [...] siddhartha Nov - none documented in this encounterOhiohealth Shelby Hospital06-26-2023 Miscellaneous Notes* Telephone Encounter - Sarai Menjivar RN - 02/09/2023 1:29 PM EDT Phoned pt and spoke with her. Dr. Booker has reviewed her labs and they are good. Dr. Booker did notice her creatinine had gone up a bit and asked that Jesus stays hydrated. Pt states she will. Sarai Menjivar RN documented in this encounterOhiohealth Shelby Hospital06-21-2023 Instructions* Patient Instructions* Nadege Murphy DO - 02/04/2023 2:00 PM EDT Stop Cellcept (mycophenolate) Blood work and urine today on the first floor Continue Plaquenil 2 tablets/daily I will see you back in 2 months for follow up. documented in this encounterOhiohealth Shelby Hospital06-21-2023 History of Present illness Narrative* Nadege Murphy DO - 02/04/2023 1:00 PM EDT Images from the original note were not included. [facility] DEPARTMENT OF [...] TUNNEL RIGHT WRIST surgical correction COLONOSCOPY 05/10/2019 [facility]astro COLONOSCOPY GEN ANES 07/23/2020 Dr. Frances/Diverticulosis/Hemorrhoids/ Ulcerative Colitis/Rpt in 2 yrs. EGD EUS 01/11/2020 [facility] Gastro LASIK Right prior to 1999 MRI [...] once daily.^Disp: 360 tablet^Rfl: 1 MV with Dur-Jgerzcyv-Tfgepf (CENTRUM SILVER) 0.4 mg-300 mcg- 250 mcg [...] 4 hours as needed for pain.^Disp: ^Rfl: tnbqruk-xlfkrdbcc-zepyfkr D3 500 mg-5 mcg (200 unit) per [...] 74 - 99 mg/dL Final Comment: The [place] Diabetes Association (ADA) provides guidance for cutoff [...] Standards of Medical Care in Diabetes 2016, [place] [employer]. Diabetes Care. 2016.39(Suppl 1). AST [...] months. Nadege Murphy DO documented in this encounterOhiohealth Shelby Hospital06-08-2023 History of Present illness Narrative* Beverly [...] with uninfected necrosis SLE (systemic lupus erythematosus) ([facility]) Sleep apnea 07/29/2012 PAST SURGICAL HISTORY Procedure Laterality Date APPENDECTOMY CARPAL TUNNEL RIGHT WRIST surgical correction COLONOSCOPY 05/10/2019 [facility] COLONOSCOPY GEN ANES 07/23/2020 Dr. Frances/Diverticulosis/Hemorrhoids/ Ulcerative Colitis/Rpt in 2 yrs. EGD EUS 01/11/2020 [facility] LASIK Right prior to 1999 MRI [...] 4 hours as needed for pain.^Disp: ^Rfl: yqnzmcn-aqgdacnou-sqbqjlx D3 500 mg-5 mcg (200 unit) per tablet^Take 1 tablet by mouth three times daily.^Disp: ^Rfl: MV with Paf-Qlwjnmsw-Vvopbk (CENTRUM SILVER) 0.4 mg-300 mcg- 250 mcg [...] AM Beverly Franco DPM documented in this encounterOhiohealth Shelby Hospital05-30-2023 Miscellaneous Notes* Telephone Encounter - Bang Spears RN - 01/13/2023 9:17 AM EDT Pharmacy escripts requesting the following refill: Requested Prescriptions Pending Prescriptions Disp Refills colestipol (COLESTID) 1 gram tablet [Pharmacy Med Name: COLESTIPOL HCL 1 GM TABLET] 120 tablet 3 Sig: TAKE 2 TABLETS BY MOUTH TWICE A DAY Please review and advise. Bang Spears RN documented in this encounterOhiohealth Shelby Hospital05-05-2023 Miscellaneous Notes* Telephone Encounter - Bang [...] you, Bang Spears RN documented in this encounterOhiohealth Shelby Hospital05-01-2023 History of Present illness Narrative* Coco [...] or open sores? No documented in this encounterOhiohealth Shelby Hospital04-28-2023 Miscellaneous Notes* Telephone Encounter - Sarai [...] in to my chart. documented in this encounterOhiohealth Shelby Hospital04-11-2023 Miscellaneous Notes* Telephone Encounter - Bang Spears RN - 11/25/2022 8:51 AM EDT Pharmacy escripts requesting the following refill: Requested Prescriptions Pending Prescriptions Disp Refills ferrous sulfate (IRON) 325 mg (65 mg iron) tablet 90 tablet 3 Sig: Take 1 tablet by mouth once daily. Please review and advise. Bang Spears RN documented in this encounterOhiohealth Shelby Hospital03-15-2023 Miscellaneous Notes* Telephone Encounter - Bang Spears RN - 10/29/2022 12:30 PM EDT Pharmacy escripts requesting the following refill: Requested Prescriptions Pending Prescriptions Disp Refills pantoprazole DR (PROTONIX) 40 mg tablet 60 tablet 3 Sig: Take 1 tablet by mouth twice daily. Please review and advise. Bang Spears RN documented in this encounterOhiohealth Shelby Hospital03-15-2023 Miscellaneous Notes* Telephone Encounter - Bang [...] PM EDT Dr. Frances, please review updated [employer] [facility] message. If you agree with retesting, please sign order. Thank you, Bang Spears RN * Telephone Encounter - Rachelle Downs - 10/24/2022 10:28 AM EST Patient calling to follow up to message documented in this encounterOhiohealth Shelby Hospital03-10-2023 Miscellaneous Notes* Telephone Encounter - Lisa Ramos - 10/24/2022 9:16 AM EST Spoke to patient and she is scheduled for bilataral injections at [facility] for this 10/27/22 under local. Per patient, she does not need a post-op visit. documented in this encounterOhiohealth Shelby Hospital03-08-2023 Miscellaneous Notes* Telephone Encounter - Bang Spears RN - 10/22/2022 11:05 AM EST [facility] pharmacy is also out of Colestipol. Pt called and found [facility] [place]. Dr. Frances, please review the order and sign. Thank you, .me * Telephone Encounter - Rachelle Downs - 10/22/2022 8:48 AM EST Patient calling again [facility] into [facility] * Telephone Encounter - Rachelle Downs - 10/21/2022 11:56 AM EST Patient calling to follow up to message documented in this encounterOhiohealth Shelby Hospital03-07-2023 Miscellaneous Notes* Telephone Encounter - Lisa Ramos - 10/21/2022 3:58 PM EST Spoke to patient and let her know that I will call her to schedule the procedure Dr. Jones offered as soon as I receive the surgery information from him. In the meantime, I provided my direct number in surgery scheduling so she and I can keep in touch [phone]. documented in this encounterOhiohealth Shelby Hospital03-03-2023 Miscellaneous Notes* Telephone Encounter - Bang Spears RN - 10/17/2022 9:00 AM EST Pt states [facility] in [place] has colestipol Dr. Frances, please review the [...] you, Bang Spears RN documented in this encounterOhiohealth Shelby Hospital03-02-2023 History of Present illness Narrative* Obdulia Ann PA-C - 10/16/2022 9:30 AM EST Images from the original note were not included. Osteoporosis and Metabolic Bone Disease Date of Service: 10/16/2022 Patient: Jesus Wolf Medical Record: [id number] Primary Care Physician: Wojciech Treviño MD, DO [...] use (Comment: Daily steroid uses from about 8269-3923) Previous use No rheumatoid arthritis Secondary osteoporosis [...] DATE OF EXAM: Mar 13 2022 3:21PM [facility] 0804 - DXA - AXIAL SKELETON -NB / PROCEDURE REASON: Asymptomatic postmenopausal status * * * * Physician Interpretation * * * * EXAMINATION: DXA BONE DENSITOMETRY BD DXA - AXIAL SKELETON -NB CLINICAL HISTORY: DIAGNOSTIC Asymptomatic postmenopausal status . DXA Model: Conferensum (S/N: [id number]) SITE SCANNED: Lumbar Spine, Left Hip, & [...] should take calcium, the recommended dose is 3756-9753 mg per day along with 800-1000 IU vitamin D (some patients may require higher doses of vitamin D). LIMITATIONS: - Degenerative changes in the spine may artificially increase bone mass and make the reading unreliable FOLLOW-UP: - 2-years cc. Dr. Hardin Cylinder Loader: findin Transcribe Date/Time: Mar 13 2022 3:34P [...] TUNNEL RIGHT WRIST surgical correction COLONOSCOPY 05/10/2019 [facility] Gastro COLONOSCOPY GEN ANES 07/23/2020 Dr. Frances/Diverticulosis/Hemorrhoids/ Ulcerative Colitis/Rpt in 2 yrs. EGD EUS 01/11/2020 [facility] Gastro LASIK Right prior to 1999 MRI PANC/JEANIE WO/W IVCON 12/20/2019 OVARIAN CYSTECTOMY PAST SURGICAL HISTORY OF 07/2013 bilateral foot procedure, Mellette PAST SURGICAL HISTORY OF Ablation X2 TONSILLECTOMY [...] - Calcium Replacement/Vitamin D Combinations Start End origuoh-mhzycvatt-prbrjli D3 500 mg-5 mcg (200 unit) per tablet 08/27/2022 Sig - Route: Take 1 tablet by mouth three times daily. - ORAL Class: OTC Vitamins - D Derivatives Start End Cholecalciferol, Vitamin D3, 2,000 unit cap Sig - Route: Take by mouth once daily. - ORAL Class: Historical Med Multivitamin and Mineral Combinations Start End MV with Yqc-Usckyblu-Puyqxw (CENTRUM SILVER) 0.4 mg-300 mcg- 250 mcg tab Sig - Route: Take 1 tablet by mouth once daily. - ORAL Class: Historical Med Minerals and Electrolytes - Calcium Replacement/Vitamin D Combinations Start End nsovcpu-bcymnqfvt-nrpzgrm D3 500 mg-5 mcg (200 unit) per [...] needed (mouth or hand numbness or tingling). jwcgwqu-sincvwiva-yvbebgp D3 500 mg-5 mcg (200 unit) per tablet Take 1 tablet by mouth three times daily. MV with Ify-Fcdlnbqn-Gdovpd (CENTRUM SILVER) 0.4 mg-300 mcg- 250 mcg [...] use (Comment: Daily steroid uses from about 4616-0832) Previous use No rheumatoid arthritis Secondary osteoporosis Malabsorption No alcohol use more than 3 units per day FRAX (WHO 10 Year Fracture Risk) Date of FRAX assessment: 05/12/22 Hip: 1.6% Major Osteoporotic: 10% Diagnoses: (M85.80) Osteopenia, unspecified location (primary encounter diagnosis) (E89.2) S/P parathyroidectomy (HCC) (Z79.83) emt intermediate (current) use of 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 Plan: Continue Fosamax. [...] maintenance advised. Orders this visit: [facility] on 10/16/22 alendronate (FOSAMAX) 70 mg tablet Return in about 6 months (around 04/18/2023). I spent a total of 21 minutes on the date of the service which included preparing to see the patient, hdld-ne-lrwg patient care, completing clinical documentation, obtaining and/or reviewing separately obtained history, performing a medically appropriate examination, and counseling and educating the patient/family/caregiver. Obdulia Ann PA-C Date: October 16, 2022 documented in this encounterOhiohealth Shelby Hospital02-15-2023 Miscellaneous Notes* Telephone Encounter - Bang [...] 09/30/2022 1:[address] Frances, just [facility]. Thank you, Bang Spears RN documented in this encounterOhiohealth Shelby Hospital02-08-2023 Miscellaneous Notes* Telephone Encounter - Neris Shannon LPN - 09/24/2022 9:14 AM EST Spoke with patient. Patient will no longer follow with either Dr. Mcfadden or Dr. Martins. No explanation given. Will contact new provider office for refills. * Telephone Encounter - Keyanna Carter APRN.JEWELRY MAKER - 09/22/2022 2:58 PM EST Patient requesting [...] Contains abnormal data LIPID PANEL (EXTERNAL) Order: [id number] Component Ref Range & Units 12 d [...] 1.0 - 5.0 2.6 documented in this encounterOhiohealth Shelby Hospital02-06-2023 Miscellaneous Notes* Telephone Encounter - Bang Spears RN - 09/22/2022 9:11 AM EST Pharmacy escripts requesting the following refill: Requested Prescriptions Pending Prescriptions Disp Refills Mesalamine (LIALDA) 1.2 gram EC tablet 360 tablet 1 Sig: Take 4 tablets by mouth once daily. Please review and advise. Bang Spears RN documented in this encounterOhiohealth Shelby Hospital01-30-2023 Miscellaneous Notes* Telephone Encounter - Monica [...] SIGNATURE: Monica Booker MD documented in this encounterOhiohealth Shelby Hospital01-30-2023 History of Present illness Narrative* Hallie [...] or open sores? No documented in this encounterOhiohealth Shelby Hospital01-27-2023 Miscellaneous Notes* Telephone Encounter - Jessica [...] on any recent antibiotics. documented in this encounterOhiohealth Shelby Hospital01-25-2023 Miscellaneous Notes* Telephone Encounter - Bang [...] and would like it to go to [facility] pharmacy. documented in this encounterOhiohealth Shelby Hospital01-23-2023 Miscellaneous Notes* Telephone Encounter - Sarai [...] concerns. Sarai Menjivar RN documented in this encounterOhiohealth Shelby Hospital01-10-2023 Miscellaneous Notes* Telephone Encounter - Sarai Collado - 08/26/2022 1:14 PM EST 08/25/22 Negative Covid Text indexed documented in this encounterOhiohealth Shelby Hospital01-06-2023 Miscellaneous Notes* Telephone Encounter - Sarai Menjivar RN - 08/22/2022 1:53 PM EST Jesus has arranged for her covid test and will hand carry the results with her to surgery. She will also fax a copy for her record. Sarai Menjivar RN documented in this encounterOhiohealth Shelby Hospital01-06-2023 Miscellaneous Notes* Telephone Encounter - Sarai Menjivar RN - 08/22/2022 9:12 AM EST Phoned and left Jesus a message to please call the office. We have not received a letter from her economic research analyst in regards to her Eliquis. We have left multiple messages and have spoken with Dr. Couch office but have not gotten a response. Sarai Menjivar RN documented in this encounterOhiohealth Shelby Hospital01-05-2023 Miscellaneous Notes* Telephone Encounter - Sarai [...] . Sarai Menjivar RN documented in this encounterOhiohealth Shelby Hospital12-15-2022 Instructions* Patient Instructions* Fercho Cortes APRN.JEWELRY MAKER - 07/31/2022 9:19 AM EST PATIENT PREOPERATIVE INSTRUCTIONS No ref. provider found has scheduled you for your procedure at this surgery center: [facility] [place] Scheduling Office: [phone] --[address] [place] [address]. Please read below carefully for your personalized [...] or other anticoagulants without consulting with your economic research analyst or prescribing physician. - Stop Vitamin E, [...] Procedures: - YOU MUST HAVE A RESPONSIBLE THAW SHED HEATER TENDER TAKE YOU HOME. A PRIMARY CARE MD OR CHIMNEY BUILDER CANNOT BE MADE A RESPONSIBLE THAW SHED HEATER TENDER. - We recommend that a responsible person [...] call the Thursday before. Your surgeon s solderer production line will tell you what time to call the office. - If you have not reached the departmental solderer production line by 5 P.M., call [phone] after 5 P.M. the day before your surgery. Please be aware that emergency situations arise, which may delay or change your surgical time. If this happens, we will notify you as soon as possible and regret any inconvenience. If you already have an Advance Directive, please fax a copy to [phone] or email to for it to be [...] day. Fercho Cortes APRN.CNP documented in this encounterOhiohealth Shelby Hospital12-15-2022 History and physical note * Fercho [...] with uninfected necrosis SLE (systemic lupus erythematosus) ([facility]) Sleep apnea 07/29/2012 PAST SURGICAL HISTORY Procedure Laterality Date APPENDECTOMY CARPAL TUNNEL RIGHT WRIST surgical correction COLONOSCOPY 05/10/2019 [facility] Gastro COLONOSCOPY GEN ANES 07/23/2020 Dr. Frances/Diverticulosis/Hemorrhoids/ Ulcerative Colitis/Rpt in 2 yrs. EGD EUS 01/11/2020 [facility] Gastro LASIK Right prior to 1999 MRI [...] Take one(1) tablet daily. Yes MV with Ddz-Nctgqsxk-Fzmzoc (CENTRUM SILVER) 0.4 mg-300 mcg- 250 mcg [...] fevers. Neuro: No history of TIA's, stroke, NURSE DISCHARGE PLANNER tumor, impaired sensorium, hemiplegia, paraplegia or quadraplegia. [...] +CHF on Aldactone no history of angina, ME, cardiac surgery or stents. Denies rest pain, gangrene or revascularization/amputation for PVD GI: Positive for GERD, PUD, ulcerative Colitits History of Pancreatitis : No history of dysuria, frequency or incontinence,, stones or chronic kidney disease, No difficulty urinating, nocturia > 1 time per night or hematuria PIPE WELDER: Negative for abnormal vaginal bleeding, abnormal vaginal [...] normal intervals, reviewed by myself., reviewed by economic research analyst. Impression CONCLUSIONS: - Technically difficult exam due [...] Initiated: Orders Placed This Encounter MV with Bfw-Kvkkowwp-Ppolcx (CENTRUM SILVER) 0.4 mg-300 mcg- 250 mcg tab Sig: Take 1 tablet by mouth once daily., Orders per surgeon Planned Anesthetic: General Instructions Given to Patient: Instructions located in the after visit summary. Patient given verbal and written preop instructions and voices comprehension and compliance. SIGNATURE: Fercho Cortes APRN.JOHNATHAN PATIENT NAME: Jesus Wolf DATE: July 31, 2022 TIME: 8:51 AM documented in this encounterOhiohealth Shelby Hospital12-07-2022 Miscellaneous Notes* Telephone Encounter - Bang [...] 23, 2022 5:04 PM documented in this encounterOhiohealth Shelby Hospital11-21-2022 History and physical note * Monica [...] obtained. Monica Booker MD documented in this encounterOhiohealth Shelby Hospital11-21-2022 History of Present illness Narrative* Paola [...] radiation safety can be found usingthis link: [email or web address] [email or web address]%20Nuclear%20Medicine%[email or web address] SIGNATURE: RT Zaria(R) PATIENT NAME: Jesus Wolf DATE: July 07, 2022 TIME: 10:54 AM PAGER/CONTACT #: documented in this encounterOhiohealth Shelby Hospital11-15-2022 Miscellaneous Notes* Telephone Encounter - Sarai Tobias - 07/01/2022 9:32 AM EST 07/01/22: INTAKE COMPLETE Patient informed about MIBI. Scheduled on patient's behalf. ENDOCRINE SURGERY PATIENT WORKSHEET Initial Call Date: July 01, 2022 Reason for Consult/ Referral: Hyperparathyroid, Hypercalcemia PATIENT DEMOGRAPHICS Name: Jesus Wolf CCF#: [id number] : 1955 AGE: [age] year old Contact Numbers: Home: (home) Work: There is no work phone number on file. PATIENT PHYSICIAN INFORMATION Referring Doctor: Lemuel Bejarano Address: Phone: Irrigation Worker: same Address: Phone: PCP: Wojciech Treviño MD ([facility]) [address] [facility] [place] [address] PAST TREATMENT Office notes: SEE EPIC Medications: [...] Pathology Reports: NONE AVAILABLE documented in this encounterOhiohealth Shelby Hospital10-27-2022 History of Present illness Narrative* Cha [...] reaction. Cha Oscar RN documented in this encounterOhiohealth Shelby Hospital10-26-2022 Instructions* Patient Instructions* Lemuel Bejarano V, MD - 06/11/2022 3:06 PM EDT [phone]-- [facility] Dr Monica Cantrell documented in this encounterOhiohealth Shelby Hospital10-26-2022 History of Present illness Narrative* Lemuel Bejarano V, MD - 06/11/2022 2:50 PM EDT Reason for consultation: evaluation of primary hyperparathyroidism Referring Physician: Obdulia Peña [address] [address] My final recommendations will be communicated back [...] TUNNEL RIGHT WRIST surgical correction COLONOSCOPY 05/10/2019 [facility] Gastro COLONOSCOPY GEN ANES 07/23/2020 Dr. Frances/Diverticulosis/Hemorrhoids/ Ulcerative Colitis/Rpt in 2 yrs. EGD EUS 01/11/2020 [facility] Gastro LASIK Right prior to 1999 MRI PANC/JEANIE WO/W IVCON 12/20/2019 OVARIAN CYSTECTOMY PAST SURGICAL HISTORY OF 07/2013 bilateral foot procedure, Mellette PAST SURGICAL HISTORY OF 2018,2019 Ablation X2 [...] by chemiluminescent immunoassay. No components found for: [id number] Calcium Date Value Ref Range Status 05/16/2021 [...] which included preparing to see the patient, ifpq-ja-mpdl patient care, completing clinical documentation, obtaining and/or [...] No Heat Intolerance?: Yes documented in this encounterOhiohealth Shelby Hospital10-03-2022 Miscellaneous Notes* Telephone Encounter - Lisa Ramos - 05/19/2022 12:47 PM EDT Patient is scheduled for bilateral cortisone injections with fluoroscopic guidance with Dr. Howard 07/21/22. She would like sooner if any cancellations, however, is not available 05/23 thru 06/08. No PACC or post-op appts needed for this procedure. documented in this encounterOhiohealth Shelby Hospital09-29-2022 Miscellaneous Notes* Telephone Encounter - Sravani Quinteros LPN - 05/15/2022 9:04 AM EDT RX was approved on 05/15/22 and was sent to [facility]. Pt was notified. documented in this encounterOhiohealth Shelby Hospital09-29-2022 Miscellaneous Notes* Telephone Encounter - Sravani Quinteros LPN - 05/15/2022 8:51 AM EDT Pt requesting refill son the following medication. Please file if appropriate. documented in this encounterOhiohealth Shelby Hospital09-26-2022 Instructions* Patient Instructions* Obdulia Peña PA-C [...] but you can sit down. Please call [phone] to schedule endocrinology appointment. documented in this encounterOhiohealth Shelby Hospital09-26-2022 History of Present illness Narrative* Obdulia Peña PA-C - 05/12/2022 10:50 AM EDT Images from the original note were not included. Osteoporosis and Metabolic Bone Disease Date of Service: 05/12/2022 Patient: Jesus Wolf Medical Record: [id number] Primary Care Physician: Wojciech Treviño MD, DO [...] use (Comment: Daily steroid uses from about 5816-7792) Previous use No rheumatoid arthritis Secondary osteoporosis [...] DIAGNOSTIC Asymptomatic postmenopausal status . DXA Model: Conferensum (S/N: [id number]) SITE SCANNED: Lumbar Spine, Left Hip, & [...] should take calcium, the recommended dose is 9288-0296 mg per day along with 800-1000 IU vitamin D (some patients may require higher doses of vitamin D). LIMITATIONS: - Degenerative changes in the spine may artificially increase bone mass and make the reading unreliable FOLLOW-UP: - 2-years cc. Dr. Hardin Cylinder Loader: findin Transcribe Date/Time: Mar 13 2022 3:34P [...] TUNNEL RIGHT WRIST surgical correction COLONOSCOPY 05/10/2019 [facility] Gastro COLONOSCOPY GEN ANES 07/23/2020 Dr. Frances/Diverticulosis/Hemorrhoids/ Ulcerative Colitis/Rpt in 2 yrs. EGD EUS 01/11/2020 [facility] Gastro LASIK Right prior to 1999 MRI [...] use (Comment: Daily steroid uses from about 5440-0171) Previous use No rheumatoid arthritis Secondary osteoporosis [...] maintenance advised. Orders this visit: [facility] on 05/12/22 CONSULT TO ENDOCRINOLOGY alendronate (FOSAMAX) 70 mg tablet Return in about 6 months (around 11/09/2022). Medical Decision Making: Problems: Low: Stable chronic illness Data: Unique test result(s) reviewed: 3+ Risk: Moderate: Drug management Medical Decision Making Level: 4 - Moderate Obdulia Peña PA-C Date: May 12, 2022 documented in this encounterOhiohealth Shelby Hospital09-20-2022 Miscellaneous Notes* Telephone Encounter - Barbie Gerard LPN - 05/06/2022 4:00 PM EDT Bocandy message sent to patient r/t below request. documented in this [facility]09-20-2022 Miscellaneous Notes* Telephone Encounter - Barbie Gerard [...] Please file if appropriate documented in this [facility]09-02-2022 Instructions* Patient Instructions* Obdulia Peña PA-C - [...] container to the lab. documented in this [facility]09-02-2022 History of Present illness Narrative* Obdulia Peña PA-C - 04/18/2022 3:56 PM EDT Images from the original note were not included. Osteoporosis and Metabolic Bone Disease Date of Service: 04/18/2022 Patient: Jesus Wolf Medical Record: [id number] Primary Care Physician: Wojciech Treviño MD, DO [...] use (Comment: Daily steroid uses from about 1961-3766) Previous use No rheumatoid arthritis Secondary osteoporosis [...] DIAGNOSTIC Asymptomatic postmenopausal status . DXA Model: Conferensum (S/N: [id number]) SITE SCANNED: Lumbar Spine, Left Hip, & [...] should take calcium, the recommended dose is 1769-5076 mg per day along with 800-1000 IU vitamin D (some patients may require higher doses of vitamin D). LIMITATIONS: - Degenerative changes in the spine may artificially increase bone mass and make the reading unreliable FOLLOW-UP: - 2-years cc. Dr. Hardin Cylinder Loader: findin Transcribe Date/Time: Mar 13 2022 3:34P [...] TUNNEL RIGHT WRIST surgical correction COLONOSCOPY 05/10/2019 [facility] Gastro COLONOSCOPY GEN ANES 07/23/2020 Dr. Frances/Diverticulosis/Hemorrhoids/ Ulcerative Colitis/Rpt in 2 yrs. EGD EUS 01/11/2020 [facility] Gastro LASIK Right prior to 1999 MRI [...] use (Comment: Daily steroid uses from about 0230-3401) Previous use No rheumatoid arthritis Secondary osteoporosis [...] Date: April 18, 2022 documented in this encounterOhiohealth Shelby Hospital07-28-2022 History of Present illness Narrative* RT Evon(R) - 03/13/2022 2:50 PM EDT Patient has been identified by name and date of . Scanner [employer] [id number] Sites Scanned: Lumbar spine, Left hip, left [...] 13, 2022 2:59 PM documented in this encounterOhiohealth Shelby Hospital07-28-2022 History of Present illness Narrative* Liliane García RN - 03/13/2022 2:30 PM EDT Patient arrives ambulatory for receipt of COVID-19 Monoclonal Antibodies for pre-exposure prophylaxis. Patient is identified by name and date of Previous [facility] Administrations (last [id number] hours) Showing orders from other encounters Date/Time Action Medication Dose 03/13/22 1258 Given cilgavimab 300 mg intramuscular injection (EVUSHELD) 300 mg 03/13/22 1258 Given tixagevimab 300 mg intramuscular injection (EVUSHELD) 300 mg Patient is receiving Evusheld (tixagevimab 300 mg/cilgevimab 300 mg) IM COVID 19 Result DENTAL TECHNICIAN (no units) Date Value 03/13/2022 Negative Confirmed [...] signs. Vitals are stable. documented in this encounterOhiohealth Shelby Hospital07-28-2022 History of Present illness Narrative* Keira [...] next. Keira Frias RN documented in this encounterOhiohealth Shelby Hospital07-28-2022 Instructions* Patient Instructions* Evelin Alicea MD [...] your usual activities immediately. documented in this encounterOhiohealth Shelby Hospital07-28-2022 History of Present illness Narrative* Evelin [...] with uninfected necrosis SLE (systemic lupus erythematosus) ([facility]) Sleep apnea 07/29/2012 FAMILY HISTORY [...] unspecified SLE type, unspecified organ involvement status ([facility]) (Z78.0) Asymptomatic postmenopausal status Her kidney disease [...] (CRP) Evelin Hardin MD documented in this encounterOhiohealth Shelby Hospital07-27-2022 Miscellaneous Notes* Telephone Encounter - Liliane García RN - 03/12/2022 12:34 PM EDT Patient sent a [employer] message she will not be taking the Evusheld injection this appointment. Liliane García RN documented in this encounterOhiohealth Shelby Hospital07-21-2022 Instructions* Patient Instructions* Court Vazquez RN [...] serious illness Are taking any medications (prescription, lvyq-mpq-jozqjcu, vitamins, or herbal products) How will I [...] EVUSHELD for ongoing protection. Viruses can change control analyst time (mutate) and develop into a slightly [...] up-to-date with the latest information by visiting [email or web address] [email or web address] or by scanning the QR code, below: [...] treatment or prevention of COVID-19 go to https://www.fda.gov/pbdrgbrdt-iwwzmshjzijv-eia-response/ana-jdquy-gbjccecnnw-and -policy-framework/nvarubvec-zff-grjxzetyjbpbb. It is your choice to receive or [...] to FDA MedWatch at www.fda.gov/medwatch or call 8-932-HZJ-1088 or call [employer] . Additional Information If you have questions, visit the website or call the telephone number provided below. To access the most recent EVUSHELD Fact Sheets, please scan the QR code provided below. Website Telephone number http://[email or web address] How can I learn more about COVID-19? Ask your healthcare provider. Visit https://www.cdc.gov/COVID19 Contact your local or state public health department. What is an Emergency Use Authorization? The [place] FDA has made EVUSHELD (tixagevimab co-packaged with cilgavimab) available under an emergency access mechanism called an Emergency Use Authorization EUA. The EUA is supported by a Senior Database Engineer of Health and Human Service (HHS) declaration [...] be used under the EUA). Distributed by: [employer], [place], [place] Manufactured by: [employer], [address] [place] [address], [place] [employer] 2020. All rights reserved. documented in this encounterOhiohealth Shelby Hospital07-21-2022 Miscellaneous Notes* Telephone Encounter - Court Vazquez RN - 03/06/2022 9:32 AM EDT Evusheld (tixagevimab/cilgavimab) Eligibility and Patient Discussion [facility] Formulary Restriction Criteria: Outpatient adults and pediatrics 12 years and older and > 40 kg with ALL of the following: [x] COVID test scheduled: Yes Date: 03/07/22, type of test:Home antigen [x] Patient has not been exposed to a SARS-COV-2 positive individual ([facility] information on COVID exposure link) [...] 06, 2022 9:33 AM documented in this encounterOhiohealth Shelby Hospital07-11-2022 Miscellaneous Notes* Telephone Encounter - Dione Frances MD - 02/24/2022 8:30 PM EDT Spoke with patient regarding positive C. difficile toxin by PCR. Have ordered vancomycin p.o. 4 times daily x 10 days to her local pharmacy. Patient verbalized understanding all questions answered. Dione Frances MD, MPH Gastroenterology and Hepatology documented in this encounterOhiohealth Shelby Hospital07-11-2022 Miscellaneous Notes* Telephone Encounter - Court Vazquez RN - 02/24/2022 1:13 PM EDT Most recent Rheumatology visit: 12/09/2021 (with Cuca Guthrie) Upcoming Rheumatology Appointments - Next 365 Days Visit Type Date Time Department [facility] 03/13/2022 11:30 AM [facility]IN A50 [...] [SQCBC] 09/13/22 09/13/21 Auth. provider: Keyanna Carter APRN.JEWELRY MAKER Assoc. diagnoses: Chronic diastolic congestive heart failure (HCC), Paroxysmal atrial fibrillation (HCC), Essential hypertension Pending Prescriptions Disp Refills HYDROXYCHLOROQUINE 200 MG TABLET 180 tablet 2 Sig: take 1 tablet by mouth twice a day with food NIKITA: No Court Vazquez RN documented in this encounterOhiohealth Shelby Hospital07-08-2022 Miscellaneous Notes* Telephone Encounter - Dione [...] MPH Gastroenterology and Hepatology documented in this encounterOhiohealth Shelby Hospital07-07-2022 Miscellaneous Notes* Telephone Encounter - Sravani Quinteros LPN - 02/20/2022 4:57 PM EDT Pt called back. Please see 02/14/22 phone encounter. documented in this encounterOhiohealth Shelby Hospital07-05-2022 Miscellaneous Notes* Telephone Encounter - Sravani Quinteros LPN - 2022 7:32 AM EDT Please see other phone encounter that was sent by Pt. documented in this encounterOhiohealth Shelby Hospital06-26-2022 Discharge summary Author Hussain Cat [facility] February 09, 2022 11:55amNote Date/TimeJun2021 11:55[place] [address] Discharge Summary Signed Patient: Jesus Wolf MR#: [id number] : 1955 Acct:[id number] Age/Sex: 66 / F Adm Date: 2 Loc: Room: [address] [place] [address]: Hussain Cat MD Copies to: [...] Plan Discharge Plan Patient Disposition: Home Health [facility] [place] Activity: No Activity Restriction Additional Instructions: Home [...] signed by Hussain Cat MD> 02/09/22 1155 [facility] Work Phone: [phone]) 185-277806-25-2022 Progress note Author Hussain Cat [facility] February 08, 2022 6:09pmNote Date/TimeJune 2021 5:53pm[place] [address] Hospitalist Progress Note Signed Patient: Jesus Wolf MR#: [id number] : 1955 Acct:[id number] Age/Sex: 66 / F Adm Date: 2 Loc: Room: [address] [place] [address] Type : ADM INOo Attending Dr: Hussain [...] code Documented By: Hussain Cat MD 2 [id number] Signed By: <Electronically signed by Hussain Cat MD> 02/08/22 5893 [facility] Work Phone: 1(289) 802-879806-25-2022 Consult note Author Rachelle Frazier [facility] February 08, 2022 1:25pmNote Date/TimeJune 2021 11:56[place] [address] Neurology Consult Note Signed Patient: Jesus Wolf MR#: [id number] : 1955 Acct:[id number] Age/Sex: 66 / F Adm Date: 2 Loc: Room: [address] [place] [address] Type : ADM INOo Attending Dr: Hussain Cat MD Copies to: DO Hussain Helms MD Nicole J Danner, DO~ HPI Consult Date: 02/08/22 Strategy Planning Consultant: Rachelle Frazier DO Reason for consult: AMS [...] mg PO BID 04/03/19 [History Confirmed 02/07/22] yqlorgwb-hhs-ytfyf acid 0.4 mg-lycopene 300 mcg-lutein 250 mcg [...] of dysmetria with good rapid alternating movements eoaotz-or-qhkg Tone is physiologic Sensation was intact to [...] <Electronically signed by DO Rachelle Frazier> 02/08/22 1327 [facility] Work Phone: 1(211) 659-279206-25-2022 History and physical note Author Hussain Cat [facility] February 07, 2022 11:02pmNote Date/TimeJune 2021 10:29pmStephanie [place] [id number] Hospitalist H&P Signed Patient: Jesus Wolf MR#: [id number] : 1955 Acct:[id number] Age/Sex: 66 / F Adm Date: 2 Loc: Room: [address] [place] [address] Type : ADM IN Attending Dr: Hussain Cat MD Copies to: Wojciech rTeviño,DO Hussain Cat MD~ HPI DATE OF EXAMINATION: [...] mg PO BID 04/03/19 [History Confirmed 02/07/22] pyrnlpbv-mwm-topeu acid 0.4 mg-lycopene 300 mcg-lutein 250 mcg [...] % (Auto) 18.9 % (.) 02/07/22 14:23 [place] % (Auto) 12.2 % (.) 02/07/22 14:23 Eos % (Auto) 1.8 % (.) 02/07/22 14:23 Baso % (Auto) 0.5 % (.) 02/07/22 14:23 Neut # (Auto) 7.5 x10E3/uL (1.8-7.7) 02/07/22 14:23 Lymph # (Auto) 2.1 x10E3/uL (1.00-4.8) 02/07/22 14:23 [place] # (Auto) 1.4 x10E3/uL (0.0-0.8) H 02/07/22 [...] pH 5.0 (5.0-9.0) 02/07/22 16:29 Ur Specific [place] 1.049 (1.001-1.030) H 02/07/22 16:29 Urine Protein [...] <Electronically signed by Hussain Cat MD> 02/07/222301 [facility] Work Phone: 1(401) 351-885406-22-2022 Miscellaneous Notes* Telephone Encounter - Bang Spears RN - 02/05/2022 1:27 PM EDT Pt's daughter, Lesia, has been notified multiple times by the team recently and up to date on POC. Please review her chart. Bang Spears RN documented in this encounterOhio[facility]06[facility]22 Miscellaneous Notes* Telephone Encounter - Irene Sahu PA-C - 01/28/2022 10:27 AM EDT Prescription refill approved on January 28, 2022 and routed to pharmacy to be filled Irene Sahu PA-C documented in this encounterOhio[facility]06-09-2022 Miscellaneous Notes* Telephone Encounter - Jesus Moon MA - 01/23/2022 11:19 AM EDT Patient phones requesting refills as follows: Pending Prescriptions Disp Refills PANTOPRAZOLE 40 MG TABLET,DELAYED RELEASE 60 tablet 3 Sig: Take 1 tablet by mouth twice daily. NIKITA: No Please review and advise. Jesus Moon MA documented in this encounterOhio[facility]05-16-2022 Miscellaneous Notes* Telephone Encounter - Sravani Quinteros LPN - 12/30/2021 11:05 AM EDT Pt requesting refills on the following medication. Please file if appropriate. documented in this encounterOhiohealth [facility]04-25-2022 History of Present illness Narrative* JOSEPH Garcia - 12/09/2021 2:30 PM EDT Images from the original note were not included. Rheumatology Outpatient Clinic New Patient To Co Date of Service: 12/09/2021 Patient: Jesus Wolf Medical Record: [id number] Primary Care Physician: Wojciech Treviño MD Last Rheumatology visit: 05/16/2021 (with Eevlin Hardin) SUBJECTIVE HISTORY OF PRESENT ILLNESS Current [...] in September with Dr. Denis Bill at [facility]. Ulcerative colitis doing well but she did have stomach ulcers in October. She also discovered that she had an aortic aneurysm that is 4.7 Current Medications. She is establishing with a new economic research analyst soon. She does not follow with nephrology. [...] TUNNEL RIGHT WRIST surgical correction COLONOSCOPY 05/10/2019 [facility]astro COLONOSCOPY GEN ANES 07/23/2020 Dr. Frances/Diverticulosis/Hemorrhoids/ Ulcerative Colitis/Rpt in 2 yrs. 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 Medical Decision Making: Problems: Low: Stable chronic illness Risk: Moderate: Moderate risk from testing/treatment Medical Decision Making Level: 3 - Low documented in this encounterOhio[facility]04-25-2022 History of Present illness Narrative* Ramesh [...] HOURS FOR THIS PT. documented in this encounterOhiohealth [facility] Hospital04-04-2022 Miscellaneous Notes* Telephone Encounter - Jesus Moon MA - 11/18/2021 10:03 AM EDT , Medication pended. Please file if appropriate. Thanks documented in this encounterOhiohealth [facility] Hospital01-27-2022 History and physical note * Dione [...] TIME: 7:39 AM PAGER: documented in this encounterOhiohealth [facility] Hospital05-04-2021 History of Past illness Narrative* ProblemNoted DateResolved DatePrimary osteoarthritis of right hip /12/2020Osteoarthritis of both feet Overview: Added automatically from request for surgery [id number] Osteoarthritis of ankle or foot Overview: Added automatically from request for surgery [id number] Overview: Added automatically from request for surgery [id number] Osteoarthrosis, localized, secondary, ankle or foot documented as of this encounter (statuses as of 11/18/2021) [facility] History of Past illness Narrative* ProblemNoted Date Resolved DatePrimary osteoarthritis of right hip/12/2020 Osteoarthritis of both feet Overview: Added automatically from request for surgery [id number] Osteoarthritis of ankle or foot Overview: Added automatically from request for surgery [id number] Overview: Added automatically from request for surgery [id number] Osteoarthrosis, localized, secondary, ankle or foot documented as of this encounter (statuses as of 12/09/2021) [facility] History of Past illness Narrative* ProblemNoted Date Resolved DatePrimary osteoarthritis of right hip Osteoarthritis of both feet Overview: Added automatically from request for surgery [id number] Osteoarthritis of ankle or foot Overview: Added automatically from request for surgery [id number] Overview: Added automatically from request for surgery [id number] Osteoarthrosis, localized, secondary, ankle or foot documented as of this encounter (statuses as of 12/09/2021) [facility] of Past illness Narrative* ProblemNoted Date Resolved DatePrimary osteoarthritis of right hip/12/2020 Osteoarthritis of both feet Overview: Added automatically from request for surgery [id number] Osteoarthritis of ankle or foot Overview: Added automatically from request for surgery [id number] Ixmrfyhzo11 Overview: Added automatically from request for surgery [id number] Osteoarthrosis, localized, secondary, ankle or foot documented as of this encounter (statuses as of 12/30/2021) [facility] of Past illness Narrative* ProblemNoted Date Resolved DatePrimary osteoarthritis of right hip/12/2020 Osteoarthritis of both feet Overview: Added automatically from request for surgery [id number] Osteoarthritis of ankle or foot Overview: Added automatically from request for surgery [id number] [id number] Overview: Added automatically from request for surgery [id number] Osteoarthrosis, localized, secondary, ankle or foot documented as of this encounter (statuses as of 01/23/2022) [facility] of Past illness Narrative* ProblemNoted Date Resolved DatePrimary osteoarthritis of right hip/12/2020 Osteoarthritis of both feet Overview: Added automatically from request for surgery [id number] Osteoarthritis of ankle or foot Overview: Added automatically from request for surgery [id number] Faducfkak14 Overview: Added automatically from request for surgery [id number] Osteoarthrosis, localized, secondary, ankle or foot documented as of this encounter (statuses as of 01/28/2022) [facility] of Past illness Narrative* ProblemNoted Date Resolved DatePrimary osteoarthritis of right hip/12/2020 Osteoarthritis of both feet Overview: Added automatically from request for surgery [id number] Osteoarthritis of ankle or foot Overview: Added automatically from request for surgery [id number] [id number] Overview: Added automatically from request for surgery [id number] Osteoarthrosis, localized, secondary, ankle or foot documented as of this encounter (statuses as of 02/05/2022) [facility] of Past illness Narrative* ProblemNoted Date Resolved DatePrimary osteoarthritis of right hip/12/2020 Osteoarthritis of both feet Overview: Added automatically from request for surgery [id number] Osteoarthritis of ankle or foot Overview: Added automatically from request for surgery [id number] Nltxrslnj00 Overview: Added automatically from request for surgery [id number] Osteoarthrosis, localized, secondary, ankle or foot documented as of this encounter (statuses as of 2022) [facility] of Past illness Narrative* ProblemNoted Date Resolved DatePrimary osteoarthritis of right hip/12/2020 Osteoarthritis of both feet Overview: Added automatically from request for surgery [id number] Osteoarthritis of ankle or foot Overview: Added automatically from request for surgery [id number] Fuvdegqij22 Overview: Added automatically from request for surgery [id number] Osteoarthrosis, localized, secondary, ankle or foot documented as of this encounter (statuses as of 02/19/2022) [facility] of Past illness Narrative* ProblemNoted Date Resolved DatePrimary osteoarthritis of right hip Osteoarthritis of both feet Overview: Added automatically from request for surgery [id number] Osteoarthritis of ankle or foot Overview: Added automatically from request for surgery [id number] Tfhlqflss82 Overview: Added automatically from request for surgery [id number] Osteoarthrosis, localized, secondary, ankle or foot documented as of this encounter (statuses as of 02/20/2022) [facility] of Past illness Narrative* ProblemNoted Date Resolved DatePrimary osteoarthritis of right hip Osteoarthritis of both feet Overview: Added automatically from request for surgery [id number] Osteoarthritis of ankle or foot Overview: Added automatically from request for surgery [id number] Ozrbrdjus99 Overview: Added automatically from request for surgery [id number] Osteoarthrosis, localized, secondary, ankle or foot documented as of this encounter (statuses as of 02/21/2022) [facility] of [facility] illness Narrative* ProblemNoted Date Resolved DatePrimary osteoarthritis of right hip Osteoarthritis of both feet Overview: Added automatically from request for surgery [id number] Osteoarthritis of ankle or foot Overview: Added automatically from request for surgery [id number] Mwzpvhsrl59 Overview: Added automatically from request for surgery [id number] Osteoarthrosis, localized, secondary, ankle or foot documented as of this encounter (statuses as of 02/24/2022) [facility] of [facility] illness Narrative* ProblemNoted Date Resolved DatePrimary osteoarthritis of right hip Osteoarthritis of both feet Overview: Added automatically from request for surgery [id number] Osteoarthritis of ankle or foot Overview: Added automatically from request for surgery [id number] Vroakyrta19 Overview: Added automatically from request for surgery [id number] Osteoarthrosis, localized, secondary, ankle or foot documented as of this encounter (statuses as of 02/25/2022) [facility] of [facility] illness Narrative* ProblemNoted Date Resolved DatePrimary osteoarthritis of right hip/12/2020 Osteoarthritis of both feet Overview: Added automatically from request for surgery [id number] Osteoarthritis of ankle or foot Overview: Added automatically from request for surgery [id number] Rsmszubyr09 Overview: Added automatically from request for surgery [id number] Osteoarthrosis, localized, secondary, ankle or foot documented as of this encounter (statuses as of 03/06/2022) [facility] of [facility] illness Narrative* ProblemNoted Date Resolved DatePrimary osteoarthritis of right hip/12/2020 Osteoarthritis of both feet Overview: Added automatically from request for surgery [id number] Osteoarthritis of ankle or foot Overview: Added automatically from request for surgery [id number] Obkagmrge31 Overview: Added automatically from request for surgery [id number] Osteoarthrosis, localized, secondary, ankle or foot documented as of this encounter (statuses as of 03/12/2022) [facility] of [facility] illness Narrative* ProblemNoted Date Resolved DatePrimary osteoarthritis of right hip/12/2020 Osteoarthritis of both feet Overview: Added automatically from request for surgery [id number] Osteoarthritis of ankle or foot Overview: Added automatically from request for surgery [id number] Xxzzeyyph32 Overview: Added automatically from request for surgery [id number] Osteoarthrosis, localized, secondary, ankle or foot documented as of this encounter (statuses as of 03/13/2022) [facility] of [facility] illness Narrative* ProblemNoted Date Resolved DatePrimary osteoarthritis of right hip/12/2020 Osteoarthritis of both feet Overview: Added automatically from request for surgery [id number] Osteoarthritis of ankle or foot Overview: Added automatically from request for surgery [id number] Fepvfnovs01 Overview: Added automatically from request for surgery [id number] Osteoarthrosis, localized, secondary, ankle or foot documented as of this encounter (statuses as of 03/13/2022) [facility] of [facility] illness Narrative* ProblemNoted Date Resolved DatePrimary osteoarthritis of right hip Osteoarthritis of both feet Overview: Added automatically from request for surgery [id number] Osteoarthritis of ankle or foot Overview: Added automatically from request for surgery [id number] Jrwnmadef87 Overview: Added automatically from request for surgery [id number] Osteoarthrosis, localized, secondary, ankle or foot documented as of this encounter (statuses as of 03/13/2022) [facility] of [facility] illness Narrative* ProblemNoted Date Resolved DatePrimary osteoarthritis of right hip Osteoarthritis of both feet Overview: Added automatically from request for surgery [id number] Osteoarthritis of ankle or foot Overview: Added automatically from request for surgery [id number] Zrhkzzqvi04 Overview: Added automatically from request for surgery [id number] Osteoarthrosis, localized, secondary, ankle or foot documented as of this encounter (statuses as of 03/16/2022) [facility] Narrative* ProblemNoted Date Resolved DatePrimary osteoarthritis of right hip Osteoarthritis of both feet Overview: Added automatically from request for surgery [id number] Osteoarthritis of ankle or foot Overview: Added automatically from request for surgery [id number] [id number] Overview: Added automatically from request for surgery [id number] Osteoarthrosis, localized, secondary, ankle or foot documented as of this encounter (statuses as of 03/20/2022) [facility] Narrative* ProblemNoted Date Resolved DatePrimary osteoarthritis of right hip Osteoarthritis of both feet Overview: Added automatically from request for surgery [id number] Osteoarthritis of ankle or foot Overview: Added automatically from request for surgery [id number] Bwozlmlus94 Overview: Added automatically from request for surgery [id number] Osteoarthrosis, localized, secondary, ankle or foot documented as of this encounter (statuses as of 03/20/2022) [facility] Narrative* ProblemNoted Date Resolved DatePrimary osteoarthritis of right hip/12/2020 Osteoarthritis of both feet Overview: Added automatically from request for surgery [id number] Osteoarthritis of ankle or foot Overview: Added automatically from request for surgery [id number] Juqifdvbm88 Overview: Added automatically from request for surgery [id number] Osteoarthrosis, localized, secondary, ankle or foot documented as of this encounter (statuses as of 03/27/2022) [facility] Narrative* ProblemNoted Date Resolved DatePrimary osteoarthritis of right hip/12/2020 Osteoarthritis of both feet Overview: Added automatically from request for surgery [id number] Osteoarthritis of ankle or foot Overview: Added automatically from request for surgery [id number] Ssouiqpmk58 Overview: Added automatically from request for surgery [id number] Osteoarthrosis, localized, secondary, ankle or foot documented as of this encounter (statuses as of 04/23/2022) [facility] Narrative* ProblemNoted Date Resolved DatePrimary osteoarthritis of right hip/12/2020 Osteoarthritis of both feet Overview: Added automatically from request for surgery [id number] Osteoarthritis of ankle or foot Overview: Added automatically from request for surgery [id number] Ylpnrlwuj44 Overview: Added automatically from request for surgery [id number] Osteoarthrosis, localized, secondary, ankle or foot documented as of this encounter (statuses as of 05/06/2022) [facility] Narrative* ProblemNoted Date Resolved DatePrimary osteoarthritis of right hip/12/2020 Osteoarthritis of both feet Overview: Added automatically from request for surgery [id number] Osteoarthritis of ankle or foot Overview: Added automatically from request for surgery [id number] Rgswdckqs22 Overview: Added automatically from request for surgery [id number] Osteoarthrosis, localized, secondary, ankle or foot documented as of this encounter (statuses as of 05/07/2022) [facility] Narrative* ProblemNoted Date Resolved DatePrimary osteoarthritis of right hip Osteoarthritis of both feet Overview: Added automatically from request for surgery [id number] Osteoarthritis of ankle or foot Overview: Added automatically from request for surgery [id number] Bagedpzbe92 Overview: Added automatically from request for surgery [id number] Osteoarthrosis, localized, secondary, ankle or foot documented as of this encounter (statuses as of 05/12/2022) [facility] Narrative* ProblemNoted Date Resolved DatePrimary osteoarthritis of right hip Osteoarthritis of both feet Overview: Added automatically from request for surgery [id number] Osteoarthritis of ankle or foot Overview: Added automatically from request for surgery [id number] Mumxatgqk38 Overview: Added automatically from request for surgery [id number] Osteoarthrosis, localized, secondary, ankle or foot documented as of this encounter (statuses as of 05/15/2022) [facility] Narrative* ProblemNoted Date Resolved DatePrimary osteoarthritis of right hip Osteoarthritis of both feet Overview: Added automatically from request for surgery [id number] Osteoarthritis of ankle or foot Overview: Added automatically from request for surgery [id number] Riiqaasba13 Overview: Added automatically from request for surgery [id number] Osteoarthrosis, localized, secondary, ankle or foot documented as of this encounter (statuses as of 05/15/2022) [facility] Narrative* ProblemNoted Date Resolved DatePrimary osteoarthritis of right hip Osteoarthritis of both feet Overview: Added automatically from request for surgery [id number] Osteoarthritis of ankle or foot Overview: Added automatically from request for surgery [id number] Mbmngiybb14 Overview: Added automatically from request for surgery [id number] Osteoarthrosis, localized, secondary, ankle or foot documented as of this encounter (statuses as of 05/19/2022) [facility] Narrative* ProblemNoted Date Resolved DatePrimary osteoarthritis of right hip/12/2020 Osteoarthritis of both feet Overview: Added automatically from request for surgery [id number] Osteoarthritis of ankle or foot Overview: Added automatically from request for surgery [id number] Aystbvcxh57 Overview: Added automatically from request for surgery [id number] Osteoarthrosis, localized, secondary, ankle or foot documented as of this encounter (statuses as of 05/19/2022) [facility] Narrative* ProblemNoted Date Resolved DatePrimary osteoarthritis of right hip/12/2020 Osteoarthritis of both feet Overview: Added automatically from request for surgery [id number] Osteoarthritis of ankle or foot Overview: Added automatically from request for surgery [id number] Icrqpoagq77 Overview: Added automatically from request for surgery [id number] Osteoarthrosis, localized, secondary, ankle or foot documented as of this encounter (statuses as of 05/26/2022) [facility] Narrative* ProblemNoted Date Resolved DatePrimary osteoarthritis of right hip/12/2020 Osteoarthritis of both feet Overview: Added automatically from request for surgery [id number] Osteoarthritis of ankle or foot Overview: Added automatically from request for surgery [id number] Overview: Added automatically from request for surgery [id number] Osteoarthrosis, localized, secondary, ankle or foot documented as of this encounter (statuses as of 06/11/2022) [facility] Narrative* ProblemNoted Date Resolved DatePrimary osteoarthritis of right hip/12/2020 Osteoarthritis of both feet Overview: Added automatically from request for surgery [id number] Osteoarthritis of ankle or foot Overview: Added automatically from request for surgery [id number] Ofnlpetsc03 Overview: Added automatically from request for surgery [id number] Osteoarthrosis, localized, secondary, ankle or foot documented as of this encounter (statuses as of 06/12/2022) [facility] Narrative* ProblemNoted Date Resolved DatePrimary osteoarthritis of right hip/12/2020 Osteoarthritis of both feet Overview: Added automatically from request for surgery [id number] Osteoarthritis of ankle or foot Overview: Added automatically from request for surgery [id number] Dscpdobqa84 Overview: Added automatically from request for surgery [id number] Osteoarthrosis, localized, secondary, ankle or foot documented as of this encounter (statuses as of 06/18/2022) [facility]05-04[facility]21 History of Past illness Narrative* ProblemNoted Date Resolved DatePrimary osteoarthritis of right hip/12/2020 Osteoarthritis of both feet Overview: Added automatically from request for surgery [id number] Osteoarthritis of ankle or foot Overview: Added automatically from request for surgery [id number] Overview: Added automatically from request for surgery [id number] Osteoarthrosis, localized, secondary, ankle or foot documented as of this encounter (statuses as of 06/19/2022) [facility] History of Past illness Narrative* ProblemNoted Date Resolved DatePrimary osteoarthritis of right hip/12/2020 Osteoarthritis of both feet Overview: Added automatically from request for surgery [id number] Osteoarthritis of ankle or foot Overview: Added automatically from request for surgery [id number] Overview: Added automatically from request for surgery [id number] Osteoarthrosis, localized, secondary, ankle or foot documented as of this encounter (statuses as of 07/01/2022) [facility] History of Past illness Narrative* ProblemNoted Date Resolved DatePrimary osteoarthritis of right hip Osteoarthritis of both feet Overview: Added automatically from request for surgery [id number] Osteoarthritis of ankle or foot Overview: Added automatically from request for surgery [id number] Overview: Added automatically from request for surgery [id number] Osteoarthrosis, localized, secondary, ankle or foot documented as of this encounter (statuses as of 07/01/2022) [facility] History of Past illness Narrative* ProblemNoted Date Resolved DatePrimary osteoarthritis of right hip Osteoarthritis of both feet Overview: Added automatically from request for surgery [id number] Osteoarthritis of ankle or foot Overview: Added automatically from request for surgery [id number] Overview: Added automatically from request for surgery [id number] Osteoarthrosis, localized, secondary, ankle or foot documented as of this encounter (statuses as of 07/07/2022) [facility] History of Past illness Narrative* ProblemNoted Date Resolved DatePrimary osteoarthritis of right hip05/04/ Osteoarthritis of both feet Overview: Added automatically from request for surgery [id number] Osteoarthritis of ankle or foot Overview: Added automatically from request for surgery [id number] Overview: Added automatically from request for surgery [id number] Osteoarthrosis, localized, secondary, ankle or foot documented as of this encounter (statuses as of 07/08/2022) [facility] History of Past illness Narrative* ProblemNoted Date Resolved DatePrimary osteoarthritis of right hip/12/2020 Osteoarthritis of both feet Overview: Added automatically from request for surgery [id number] Osteoarthritis of ankle or foot Overview: Added automatically from request for surgery [id number] [id number] Overview: Added automatically from request for surgery [id number] Osteoarthrosis, localized, secondary, ankle or foot documented as of this encounter (statuses as of 07/08/2022) [facility] History of Past illness Narrative* ProblemNoted Date Resolved DatePrimary osteoarthritis of right hip/12/2020 Osteoarthritis of both feet Overview: Added automatically from request for surgery [id number] Osteoarthritis of ankle or foot Overview: Added automatically from request for surgery [id number] Overview: Added automatically from request for surgery [id number] Osteoarthrosis, localized, secondary, ankle or foot documented as of this encounter (statuses as of 07/08/2022) [facility] History of Past illness Narrative* ProblemNoted Date Resolved DatePrimary osteoarthritis of right hip/12/2020 Osteoarthritis of both feet Overview: Added automatically from request for surgery [id number] Osteoarthritis of ankle or foot Overview: Added automatically from request for surgery [id number] Overview: Added automatically from request for surgery [id number] Osteoarthrosis, localized, secondary, ankle or foot documented as of this encounter (statuses as of 07/11/2022) [facility] History of Past illness Narrative* ProblemNoted Date Resolved DatePrimary osteoarthritis of right hip/12/2020 Osteoarthritis of ankle or foot Overview: Added automatically from request for surgery [id number] [id number] Overview: Added automatically from request for surgery [id number] Osteoarthrosis, localized, secondary, ankle or foot documented as of this encounter (statuses as of 07/21/2022) [facility] History of Past illness Narrative* ProblemNoted Date Resolved DatePrimary osteoarthritis of right hip/12/2020 Osteoarthritis of ankle or foot Overview: Added automatically from request for surgery [id number] Overview: Added automatically from request for surgery [id number] Osteoarthrosis, localized, secondary, ankle or foot documented as of this encounter (statuses as of 07/31/2022) [facility] History of Past illness Narrative* ProblemNoted Date Resolved DatePrimary osteoarthritis of right hip Osteoarthritis of ankle or foot Overview: Added automatically from request for surgery [id number] Overview: Added automatically from request for surgery [id number] Osteoarthrosis, localized, secondary, ankle or foot documented as of this encounter (statuses as of 08/08/2022) [facility] History of Past illness Narrative* ProblemNoted Date Resolved DatePrimary osteoarthritis of right hip Osteoarthritis of ankle or foot Overview: Added automatically from request for surgery [id number] [id number] Overview: Added automatically from request for surgery [id number] Osteoarthrosis, localized, secondary, ankle or foot documented as of this encounter (statuses as of 08/22/2022) [facility] History of Past illness Narrative* ProblemNoted Date Resolved DatePrimary osteoarthritis of right hip Osteoarthritis of ankle or foot Overview: Added automatically from request for surgery [id number] [id number] Overview: Added automatically from request for surgery [id number] Osteoarthrosis, localized, secondary, ankle or foot documented as of this encounter (statuses as of 08/23/2022) [facility] History of Past illness Narrative* ProblemNoted Date Resolved DatePrimary osteoarthritis of right hip Osteoarthritis of ankle or foot Overview: Added automatically from request for surgery [id number] [id number] Overview: Added automatically from request for surgery [id number] Osteoarthrosis, localized, secondary, ankle or foot documented as of this encounter (statuses as of 08/25/2022) [facility] History of Past illness Narrative* ProblemNoted Date Resolved DatePrimary osteoarthritis of right hip Osteoarthritis of ankle or foot Overview: Added automatically from request for surgery [id number] [id number] Overview: Added automatically from request for surgery [id number] Osteoarthrosis, localized, secondary, ankle or foot documented as of this encounter (statuses as of 08/26/2022) [facility] History of Past illness Narrative* ProblemNoted Date Resolved DatePrimary osteoarthritis of right hip Osteoarthritis of ankle or foot Overview: Added automatically from request for surgery [id number] [id number] Overview: Added automatically from request for surgery [id number] Osteoarthrosis, localized, secondary, ankle or foot documented as of this encounter (statuses as of 09/09/2022) [facility] History of Past illness Narrative* ProblemNoted Date Resolved DatePrimary osteoarthritis of right hip Osteoarthritis of ankle or foot Overview: Added automatically from request for surgery [id number] Overview: Added automatically from request for surgery [id number] Osteoarthrosis, localized, secondary, ankle or foot documented as of this encounter (statuses as of 09/12/2022) [facility] History of Past illness Narrative* ProblemNoted Date Resolved DatePrimary osteoarthritis of right hip/12/2020 Osteoarthritis of ankle or foot Overview: Added automatically from request for surgery [id number] Overview: Added automatically from request for surgery [id number] Osteoarthrosis, localized, secondary, ankle or foot documented as of this encounter (statuses as of 09/15/2022) [facility] History of Past illness Narrative* ProblemNoted Date Resolved DatePrimary osteoarthritis of right hip/12/2020 Osteoarthritis of ankle or foot Overview: Added automatically from request for surgery [id number] Psicinfyt04 Overview: Added automatically from request for surgery [id number] Osteoarthrosis, localized, secondary, ankle or foot documented as of this encounter (statuses as of 09/15/2022) [facility] History of Past illness Narrative* ProblemNoted Date Resolved DatePrimary osteoarthritis of right hip/12/2020 Osteoarthritis of ankle or foot Overview: Added automatically from request for surgery [id number] [id number] Overview: Added automatically from request for surgery [id number] Osteoarthrosis, localized, secondary, ankle or foot documented as of this encounter (statuses as of 09/22/2022) [facility] History of Past illness Narrative* ProblemNoted Date Resolved DatePrimary osteoarthritis of right hip Osteoarthritis of ankle or foot Overview: Added automatically from request for surgery [id number] [id number] Overview: Added automatically from request for surgery [id number] Osteoarthrosis, localized, secondary, ankle or foot documented as of this encounter (statuses as of 09/24/2022) [facility] History of Past illness Narrative* ProblemNoted Date Resolved DatePrimary osteoarthritis of right hip Osteoarthritis of ankle or foot Overview: Added automatically from request for surgery [id number] Pccojycxu08 Overview: Added automatically from request for surgery [id number] Osteoarthrosis, localized, secondary, ankle or foot documented as of this encounter (statuses as of 10/02/2022) [facility] History of Past illness Narrative* ProblemNoted Date Resolved DatePrimary osteoarthritis of right hip Osteoarthritis of ankle or foot Overview: Added automatically from request for surgery [id number] Lyvzhnsfn75 Overview: Added automatically from request for surgery [id number] Osteoarthrosis, localized, secondary, ankle or foot documented as of this encounter (statuses as of 10/16/2022) [facility] History of Past illness Narrative* ProblemNoted Date Resolved DatePrimary osteoarthritis of right hip Osteoarthritis of ankle or foot Overview: Added automatically from request for surgery [id number] Overview: Added automatically from request for surgery [id number] Osteoarthrosis, localized, secondary, ankle or foot documented as of this encounter (statuses as of 10/17/2022) [facility] History of Past illness Narrative* ProblemNoted Date Resolved DatePrimary osteoarthritis of right hip Osteoarthritis of ankle or foot Overview: Added automatically from request for surgery [id number] Overview: Added automatically from request for surgery [id number] Osteoarthrosis, localized, secondary, ankle or foot documented as of this encounter (statuses as of 10/22/2022) [facility] History of Past illness Narrative* ProblemNoted Date Resolved DatePrimary osteoarthritis of right hip Osteoarthritis of ankle or foot Overview: Added automatically from request for surgery [id number] Hnrlqgcyo06 Overview: Added automatically from request for surgery [id number] Osteoarthrosis, localized, secondary, ankle or foot documented as of this encounter (statuses as of 10/22/2022) [facility] History of Past illness Narrative* ProblemNoted Date Resolved DatePrimary osteoarthritis of right hip Osteoarthritis of ankle or foot Overview: Added automatically from request for surgery [id number] Psalbspbq54 Overview: Added automatically from request for surgery [id number] Osteoarthrosis, localized, secondary, ankle or foot documented as of this encounter (statuses as of 10/23/2022) [facility]21 History of Past illness Narrative* ProblemNoted Date Resolved DatePrimary osteoarthritis of right hip/12/2020 Osteoarthritis of ankle or foot Overview: Added automatically from request for surgery [id number] Overview: Added automatically from request for surgery [id number] Osteoarthrosis, localized, secondary, ankle or foot documented as of this encounter (statuses as of 10/24/2022) [facility] History of Past illness Narrative* ProblemNoted Date Resolved DatePrimary osteoarthritis of right hip/12/2020 Osteoarthritis of ankle or foot Overview: Added automatically from request for surgery [id number] [id number] Overview: Added automatically from request for surgery [id number] Osteoarthrosis, localized, secondary, ankle or foot documented as of this encounter (statuses as of 10/24/2022) [facility]21 History of Past illness Narrative* ProblemNoted Date Resolved DatePrimary osteoarthritis of right hip/12/2020 Osteoarthritis of ankle or foot Overview: Added automatically from request for surgery [id number] [id number] Overview: Added automatically from request for surgery [id number] Osteoarthrosis, localized, secondary, ankle or foot documented as of this encounter (statuses as of 10/29/2022) [facility] History of Past illness Narrative* ProblemNoted Date Resolved DatePrimary osteoarthritis of right hip Osteoarthritis of ankle or foot Overview: Added automatically from request for surgery [id number] [id number] Overview: Added automatically from request for surgery [id number] Osteoarthrosis, localized, secondary, ankle or foot documented as of this encounter (statuses as of 10/29/2022) [facility] History of Past illness Narrative* ProblemNoted Date Resolved DatePrimary osteoarthritis of right hip/12/2020 Osteoarthritis of ankle or foot Overview: Added automatically from request for surgery [id number] Vempahosu25 Overview: Added automatically from request for surgery [id number] Osteoarthrosis, localized, secondary, ankle or foot documented as of this encounter (statuses as of 11/25/2022) [facility] History of Past illness Narrative* ProblemNoted Date Resolved DatePrimary osteoarthritis of right hip Osteoarthritis of ankle or foot Overview: Added automatically from request for surgery [id number] Overview: Added automatically from request for surgery [id number] Osteoarthrosis, localized, secondary, ankle or foot documented as of this encounter (statuses as of 12/12/2022) [facility] History of Past illness Narrative* ProblemNoted Date Resolved DatePrimary osteoarthritis of right hip/12/2020 Osteoarthritis of ankle or foot Overview: Added automatically from request for surgery [id number] [id number] Overview: Added automatically from request for surgery [id number] Osteoarthrosis, localized, secondary, ankle or foot documented as of this encounter (statuses as of 12/15/2022) [facility] History of Past illness Narrative* ProblemNoted Date Resolved DatePrimary osteoarthritis of right hip/12/2020 Osteoarthritis of ankle or foot Overview: Added automatically from request for surgery [id number] [id number] Overview: Added automatically from request for surgery [id number] Osteoarthrosis, localized, secondary, ankle or foot documented as of this encounter (statuses as of 12/20/2022) [facility] History of Past illness Narrative* ProblemNoted Date Resolved DatePrimary osteoarthritis of right hip Osteoarthritis of ankle or foot Overview: Added automatically from request for surgery [id number] [id number] Overview: Added automatically from request for surgery [id number] Osteoarthrosis, localized, secondary, ankle or foot documented as of this encounter (statuses as of 01/13/2023) [facility] History of Past illness Narrative* ProblemNoted Date Resolved DatePrimary osteoarthritis of right hip/12/2020 Osteoarthritis of ankle or foot Overview: Added automatically from request for surgery [id number] [id number] Overview: Added automatically from request for surgery [id number] Osteoarthrosis, localized, secondary, ankle or foot documented as of this encounter (statuses as of 01/22/2023) [facility] History of Past illness Narrative* ProblemNoted Date Resolved DatePrimary osteoarthritis of right hip/12/2020 Osteoarthritis of ankle or foot Overview: Added automatically from request for surgery [id number] Cuepwduqv73 Overview: Added automatically from request for surgery [id number] Osteoarthrosis, localized, secondary, ankle or foot documented as of this encounter (statuses as of 02/05/2023) [facility] History of Past illness Narrative* ProblemNoted Date Resolved DatePrimary osteoarthritis of right hip/12/2020 Osteoarthritis of ankle or foot Overview: Added automatically from request for surgery [id number] [id number] Overview: Added automatically from request for surgery [id number] Osteoarthrosis, localized, secondary, ankle or foot documented as of this encounter (statuses as of 02/05/2023) [facility] History of Past illness Narrative* ProblemNoted Date Resolved DatePrimary osteoarthritis of right hip/12/2020 Osteoarthritis of ankle or foot Overview: Added automatically from request for surgery [id number] Jodmywuqv57 Overview: Added automatically from request for surgery [id number] Osteoarthrosis, localized, secondary, ankle or foot documented as of this encounter (statuses as of 02/09/2023) [facility] History of Past illness Narrative* ProblemNoted Date Resolved DatePrimary osteoarthritis of right hip Osteoarthritis of ankle or foot Overview: Added automatically from request for surgery [id number] [id number] Overview: Added automatically from request for surgery [id number] Osteoarthrosis, localized, secondary, ankle or foot documented as of this encounter (statuses as of 02/10/2023) [facility] History of Past illness Narrative* ProblemNoted Date Resolved DatePrimary osteoarthritis of right hip Osteoarthritis of ankle or foot Overview: Added automatically from request for surgery [id number] Fgesgukok38 Overview: Added automatically from request for surgery [id number] Osteoarthrosis, localized, secondary, ankle or foot documented as of this encounter (statuses as of 02/13/2023) [facility] History of Past illness Narrative* ProblemNoted Date Resolved DatePrimary osteoarthritis of right hip Osteoarthritis of ankle or foot Overview: Added automatically from request for surgery [id number] Overview: Added automatically from request for surgery [id number] Osteoarthrosis, localized, secondary, ankle or foot documented as of this encounter (statuses as of 02/16/2023) [facility] History of Past illness Narrative* ProblemNoted Date Resolved DatePrimary osteoarthritis of right hip Osteoarthritis of ankle or foot Overview: Added automatically from request for surgery [id number] Frzdqjxqo88 Overview: Added automatically from request for surgery [id number] Osteoarthrosis, localized, secondary, ankle or foot documented as of this encounter (statuses as of 02/19/2023) [facility] History of Past illness Narrative* ProblemNoted Date Resolved DatePrimary osteoarthritis of right hip Osteoarthritis of ankle or foot Overview: Added automatically from request for surgery [id number] [id number] Overview: Added automatically from request for surgery [id number] Osteoarthrosis, localized, secondary, ankle or foot documented as of this encounter (statuses as of 02/19/2023) [facility] History of Past illness Narrative* ProblemNoted Date Diagnosed DateResolved DatePrimary osteoarthritis of right hip12/18/2020 12/19/2020Osteoarthritis of ankle or foot Overview: Added automatically from request for surgery [id number] Vrigazvwp63 Overview: Added automatically from request for surgery [id number] Osteoarthrosis, localized, secondary, ankle or foot documented as of this encounter (statuses as of 03/12/2023) [facility] History of Past illness Narrative* ProblemNoted Date Diagnosed DateResolved DatePrimary osteoarthritis of right hip12/18/2020 12/19/2020Osteoarthritis of ankle or foot Overview: Added automatically from request for surgery [id number] Ixwhvvdzv36/[id number]/ Overview: Added automatically from request for surgery [id number] Osteoarthrosis, localized, secondary, ankle or foot documented as of this encounter (statuses as of 03/12/2023) [facility] History of Past illness Narrative* ProblemNoted Date Diagnosed DateResolved DatePrimary osteoarthritis of right hip12/18/2020 12/19/2020Osteoarthritis of ankle or foot Overview: Added automatically from request for surgery [id number] Overview: Added automatically from request for surgery [id number] Osteoarthrosis, localized, secondary, ankle or foot documented as of this encounter (statuses as of 03/16/2023) [facility] History of Past illness Narrative* ProblemNoted Date Diagnosed DateResolved DatePrimary osteoarthritis of right hip12/18/2020 12/19/2020Osteoarthritis of ankle or foot Overview: Added automatically from request for surgery [id number] Kuzsapatk44 Overview: Added automatically from request for surgery [id number] Osteoarthrosis, localized, secondary, ankle or foot documented as of this encounter (statuses as of 03/19/2023) [facility] History of Past illness Narrative* ProblemNoted Date Diagnosed DateResolved DatePrimary osteoarthritis of right hip12/18/2020 12/19/2020Osteoarthritis of ankle or foot Overview: Added automatically from request for surgery [id number] Overview: Added automatically from request for surgery [id number] Osteoarthrosis, localized, secondary, ankle or foot documented as of this encounter (statuses as of 03/19/2023) [facility] History of Past illness Narrative* ProblemNoted Date Diagnosed DateResolved DatePrimary osteoarthritis of right hip12/18/2020 12/19/2020Osteoarthritis of ankle or foot Overview: Added automatically from request for surgery [id number] Overview: Added automatically from request for surgery [id number] Osteoarthrosis, localized, secondary, ankle or foot documented as of this encounter (statuses as of 03/27/2023) [facility] History of Past illness Narrative* ProblemNoted Date Diagnosed DateResolved DatePrimary osteoarthritis of right hip12/18/2020 12/19/2020Osteoarthritis of ankle or foot Overview: Added automatically from request for surgery [id number] Overview: Added automatically from request for surgery [id number] Osteoarthrosis, localized, secondary, ankle or foot documented as of this encounter (statuses as of 04/03/2023) [facility] History of Past illness Narrative* ProblemNoted Date Diagnosed DateResolved DatePrimary osteoarthritis of right hip12/18/2020 12/19/2020Osteoarthritis of ankle or foot Overview: Added automatically from request for surgery [id number] [id number] Overview: Added automatically from request for surgery [id number] Osteoarthrosis, localized, secondary, ankle or foot documented as of this encounter (statuses as of 04/08/2023) [facility] History of Past illness Narrative* ProblemNoted Date Diagnosed DateResolved DatePrimary osteoarthritis of right hip12/18/2020 12/19/2020Osteoarthritis of ankle or foot Overview: Added automatically from request for surgery [id number] [id number] Overview: Added automatically from request for surgery [id number] Osteoarthrosis, localized, secondary, ankle or foot documented as of this encounter (statuses as of 04/10/2023) [facility]05-04[facility]21 History of Past illness Narrative* ProblemNoted Date Diagnosed DateResolved DatePrimary osteoarthritis of right hip12/18/2020 12/19/2020Osteoarthritis of ankle or foot Overview: Added automatically from request for surgery [id number] Overview: Added automatically from request for surgery [id number] Osteoarthrosis, localized, secondary, ankle or foot documented as of this encounter (statuses as of 04/15/2023) [facility] History of Past illness Narrative* ProblemNoted Date Diagnosed DateResolved DatePrimary osteoarthritis of right hip12/18/2020 12/19/2020Osteoarthritis of ankle or foot Overview: Added automatically from request for surgery [id number] Overview: Added automatically from request for surgery [id number] Osteoarthrosis, localized, secondary, ankle or foot documented as of this encounter (statuses as of 04/17/2023) [facility] History of Past illness Narrative* ProblemNoted Date Diagnosed DateResolved DatePrimary osteoarthritis of right hip12/18/2020 12/19/2020Osteoarthritis of ankle or foot Overview: Added automatically from request for surgery [id number] Overview: Added automatically from request for surgery [id number] Osteoarthrosis, localized, secondary, ankle or foot documented as of this encounter (statuses as of 04/17/2023) [facility] History of Past illness Narrative* ProblemNoted Date Diagnosed DateResolved DatePrimary osteoarthritis of right hip12/18/2020 12/19/2020Osteoarthritis of ankle or foot Overview: Added automatically from request for surgery [id number] Overview: Added automatically from request for surgery [id number] Osteoarthrosis, localized, secondary, ankle or foot documented as of this encounter (statuses as of 04/27/2023) [facility] History of Past illness Narrative* ProblemNoted Date Diagnosed DateResolved DatePrimary osteoarthritis of right hip12/18/2020 12/19/2020Osteoarthritis of ankle or foot Overview: Added automatically from request for surgery [id number] Overview: Added automatically from request for surgery [id number] Osteoarthrosis, localized, secondary, ankle or foot documented as of this encounter (statuses as of 06/12/2023) [facility] History of Past illness Narrative* ProblemNoted Date Diagnosed DateResolved DatePrimary osteoarthritis of right hip12/18/2020 12/19/2020Osteoarthritis of ankle or foot Overview: Added automatically from request for surgery [id number] Overview: Added automatically from request for surgery [id number] Osteoarthrosis, localized, secondary, ankle or foot documented as of this encounter (statuses as of 06/16/2023) [facility] History of Past illness Narrative* ProblemNoted Date Diagnosed DateResolved DatePrimary osteoarthritis of right hip12/18/2020 12/19/2020Osteoarthritis of ankle or foot Overview: Added automatically from request for surgery [id number] Overview: Added automatically from request for surgery [id number] Osteoarthrosis, localized, secondary, ankle or foot documented as of this encounter (statuses as of 06/25/2023) [facility] History of Past illness Narrative* ProblemNoted Date Diagnosed DateResolved DatePrimary osteoarthritis of right hip12/18/2020 12/19/2020Osteoarthritis of ankle or foot Overview: Added automatically from request for surgery [id number] Overview: Added automatically from request for surgery [id number] Osteoarthrosis, localized, secondary, ankle or foot documented as of this encounter (statuses as of 07/01/2023) [facility] History of Past illness Narrative* ProblemNoted Date Diagnosed DateResolved DatePrimary osteoarthritis of right hip12/18/2020 12/19/2020Osteoarthritis of ankle or foot Overview: Added automatically from request for surgery [id number] Overview: Added automatically from request for surgery [id number] Osteoarthrosis, localized, secondary, ankle or foot documented as of this encounter (statuses as of 07/02/2023) [facility] History of Past illness Narrative* ProblemNoted Date Diagnosed DateResolved DatePrimary osteoarthritis of right hip12/18/2020 12/19/2020Osteoarthritis of ankle or foot Overview: Added automatically from request for surgery [id number] Overview: Added automatically from request for surgery [id number] Osteoarthrosis, localized, secondary, ankle or foot documented as of this encounter (statuses as of 07/02/2023) [facility] History of Past illness Narrative* ProblemNoted Date Diagnosed DateResolved DatePrimary osteoarthritis of right hip12/18/2020 12/19/2020Osteoarthritis of ankle or foot Overview: Added automatically from request for surgery [id number] Overview: Added automatically from request for surgery [id number] Osteoarthrosis, localized, secondary, ankle or foot documented as of this encounter (statuses as of 07/08/2023) [facility] History of Past illness Narrative* ProblemNoted Date Diagnosed DateResolved DatePrimary osteoarthritis of right hip12/18/2020 12/19/2020Osteoarthritis of ankle or foot Overview: Added automatically from request for surgery [id number] Overview: Added automatically from request for surgery [id number] Osteoarthrosis, localized, secondary, ankle or foot documented as of this encounter (statuses as of 07/21/2023) [facility] History of Past illness Narrative* ProblemNoted Date Diagnosed DateResolved DatePrimary osteoarthritis of right hip12/18/2020 12/19/2020Osteoarthritis of ankle or foot Overview: Added automatically from request for surgery [id number] Overview: Added automatically from request for surgery [id number] Osteoarthrosis, localized, secondary, ankle or foot documented as of this encounter (statuses as of 07/21/2023) [facility] History of Past illness Narrative* ProblemNoted Date Diagnosed DateResolved DatePrimary osteoarthritis of right hip12/18/2020 12/19/2020Osteoarthritis of ankle or foot Overview: Added automatically from request for surgery [id number] Overview: Added automatically from request for surgery [id number] Osteoarthrosis, localized, secondary, ankle or foot documented as of this encounter (statuses as of 09/29/2023) [facility] History of Past illness Narrative* ProblemNoted Date Diagnosed DateResolved DatePrimary osteoarthritis of right hip12/18/2020 12/19/2020Osteoarthritis of ankle or foot Overview: Added automatically from request for surgery [id number] Overview: Added automatically from request for surgery [id number] Osteoarthrosis, localized, secondary, ankle or foot documented as of this encounter (statuses as of 09/30/2023) [facility] History of Past illness Narrative* ProblemNoted Date Diagnosed DateResolved DatePrimary osteoarthritis of right hip12/18/2020 12/19/2020Osteoarthritis of ankle or foot Overview: Added automatically from request for surgery [id number] Overview: Added automatically from request for surgery [id number] Osteoarthrosis, localized, secondary, ankle or foot documented as of this encounter (statuses as of 10/01/2023) [facility] History of Past illness Narrative* ProblemNoted Date Diagnosed DateResolved DatePrimary osteoarthritis of right hip12/18/2020 12/19/2020Osteoarthritis of ankle or foot Overview: Added automatically from request for surgery [id number] Overview: Added automatically from request for surgery [id number] Osteoarthrosis, localized, secondary, ankle or foot documented as of this encounter (statuses as of 10/01/2023) [facility] History of Past illness Narrative* ProblemNoted Date Diagnosed DateResolved DatePrimary osteoarthritis of right hip12/18/2020 12/19/2020Osteoarthritis of ankle or foot Overview: Added automatically from request for surgery [id number] Overview: Added automatically from request for surgery [id number] Osteoarthrosis, localized, secondary, ankle or foot documented as of this encounter (statuses as of 10/09/2023) [facility] History of Past illness Narrative* ProblemNoted Date Diagnosed DateResolved DatePrimary osteoarthritis of right hip12/18/2020 12/19/2020Osteoarthritis of ankle or foot Overview: Added automatically from request for surgery [id number] Overview: Added automatically from request for surgery [id number] Osteoarthrosis, localized, secondary, ankle or foot documented as of this encounter (statuses as of 10/14/2023) [facility] History of Past illness Narrative* ProblemNoted Date Diagnosed DateResolved DatePrimary osteoarthritis of right hip12/18/2020 12/19/2020Osteoarthritis of ankle or foot Overview: Added automatically from request for surgery [id number] Overview: Added automatically from request for surgery [id number] Osteoarthrosis, localized, secondary, ankle or foot documented as of this encounter (statuses as of 10/24/2023) [facility] History of Past illness Narrative* ProblemNoted Date Diagnosed DateResolved DatePrimary osteoarthritis of right hip12/18/2020 12/19/2020Osteoarthritis of ankle or foot Overview: Added automatically from request for surgery [id number] Overview: Added automatically from request for surgery [id number] Osteoarthrosis, localized, secondary, ankle or foot documented as of this encounter (statuses as of 10/24/2023) [facility] History of Past illness Narrative* ProblemNoted Date Diagnosed DateResolved DatePrimary osteoarthritis of right hip12/18/2020 12/19/2020Osteoarthritis of ankle or foot Overview: Added automatically from request for surgery [id number] Overview: Added automatically from request for surgery [id number] Osteoarthrosis, localized, secondary, ankle or foot documented as of this encounter (statuses as of 10/28/2023) [facility] History of Past illness Narrative* ProblemNoted Date Diagnosed DateResolved DateOsteoarthritis of ankle or foot Overview: Added automatically from request for surgery [id number] Overview: Added automatically from request for surgery [id number] Osteoarthrosis, localized, secondary, ankle or foot documented as of this encounter (statuses as of 03/27/2023) [facility] Yuriy Conway [facility] November 26, 2023 1:52pmNote Date/TimeApril 2023 1:52pm[place] [address] Discharge Summary Signed Patient: Jesus Wolf MR#: [id number] : 1955 Acct:[id number] Age/Sex: 68 / F Adm Date: 4 [...] Gap 11.9 Documented By: Yuriy Conway MD, [facility] 4 [id number] Signed By: <Electronically signed by MD ARMINDA Conway> 11/26/23 1357 [facility] Work Phone: Evaluation note* Diagnosis Systemic lupus erythematosus, unspecified SLE type, unspecified organ involvement status (HCC)- Primary High risk medication use Encounter for long-term (current) use of other medications Long-term use of Plaquenil Encounter for long-term (current) use of other medications [facility] [place] [facility] Diagnosis Systemic lupus erythematosus, unspecified SLE type, unspecified organ involvement status (HCC)- Primary High risk medication use Encounter for long-term (current) use of other medications [facility] [place] [facility]* Diagnosis Diarrhea, unspecified type [facility] [place] [facility]* Diagnosis Medication refill Issue of repeat prescriptions [facility] [place] [facility]* Diagnosis Onset Date Resolution Status Acute alteration in mental status acuteAcute UTIacuteHeadacheacute [facility] Work Phone: Evaluation note* Diagnosis Onset Date Resolution Status Acute alteration in mental status acuteAcute UTIacuteGeneralized weaknessacuteHeadacheacuteLupusacuteObesityacute MONI (obstructive sleep apnea)acuteHLD (hyperlipidemia)chronicHTN (hypertension) chronic [facility] Work Phone: evaluation note* Diagnosis Diarrhea, unspecified type- Primary [facility] [place] [facility]* Diagnosis Systemic lupus erythematosus, unspecified SLE type, unspecified organ involvement status ([facility]) High risk medication use Encounter for long-term (current) use of other medications [facility] [place] [facility]* Diagnosis C. difficile diarrhea- Primary Intestinal infection due to clostridium difficile [facility] [place] [facility]* Diagnosis Encounter for prophylactic measures, unspecified- Primary [facility] [place] [facility]* Diagnosis Membranous lupus nephritis syndrome (HCC)- Primary Systemic lupus erythematosus High risk medication use Encounter for long-term (current) use of other medications Systemic lupus erythematosus, unspecified SLE type, unspecified organ involvement status (HCC) Asymptomatic postmenopausal status [facility] [place] [facility]* Diagnosis Systemic lupus erythematosus, unspecified SLE type, unspecified organ involvement status (HCC)- Primary Membranous lupus nephritis syndrome (HCC) Systemic lupus erythematosus High risk medication use Encounter for long-term (current) use of other medications Encounter for prophylactic measures, unspecified [facility] [place] [facility]* Diagnosis Asymptomatic postmenopausal status [facility] [place] [facility]* Diagnosis Asymptomatic postmenopausal status- Primary Membranous lupus nephritis syndrome (HCC) Systemic lupus erythematosus High risk medication use Encounter for long-term (current) use of other medications documented in this encounter [facility] note* Diagnosis High risk medication use Encounter for long-term (current) use of other medications Systemic lupus erythematosus, unspecified SLE type, unspecified organ involvement status (HCC) documented in this encounter [facility] note* Diagnosis Hypertrophic obstructive cardiomyopathy (HCC)- Primary documented in this encounter [facility] note* Diagnosis Osteopenia, unspecified location- Primary Vitamin D deficiency disease Unspecified vitamin D deficiency Serum calcium elevated Hypercalcemia Balance problem Other symptoms involving nervous and musculoskeletal systems documented in this encounter [facility] note* Diagnosis Diarrhea, unspecified type documented in this encounter [facility] note* Diagnosis Osteopenia, unspecified location- Primary Balance problem Other symptoms involving nervous and musculoskeletal systems Hypercalcemia Hyperparathyroid (HCC) documented in this encounter [facility] note* Diagnosis Primary osteoarthritis of both feet- Primary documented in this encounter [facility] note* Diagnosis Hypercalcemia Hyperparathyroid (HCC) Primary osteoarthritis of both feet documented in this encounter [facility] note* Diagnosis Systemic lupus erythematosus, unspecified SLE type, unspecified organ involvement status (HCC)- Primary Hyperparathyroid (HCC) Primary osteoarthritis of both feet documented in this encounter [facility] note* Diagnosis Systemic lupus erythematosus, unspecified SLE type, unspecified organ involvement status (HCC)- Primary Primary osteoarthritis of both feet documented in this encounter [facility] note* Diagnosis Hyperparathyroidism (HCC)- Primary Hyperparathyroidism, unspecified Primary osteoarthritis of both feet documented in this encounter [facility] note* Diagnosis Hypercalcemia Hyperparathyroid (HCC) Primary hyperparathyroidism (HCC)- Primary Primary hyperparathyroidism Primary osteoarthritis of both feet documented in this encounter [facility] note* Diagnosis Hyperparathyroidism (HCC) Hyperparathyroidism, unspecified Primary osteoarthritis of both feet documented in this encounter [facility] note* Diagnosis Hypercalcemia Hyperparathyroid (HCC) Primary osteoarthritis of both feet Primary hyperparathyroidism (HCC) Primary hyperparathyroidism documented in this encounter [facility] note* Diagnosis Pre-op evaluation- Primary Preoperative examination, [...] (HCC) Primary hyperparathyroidism [facility] [place] [facility]* Diagnosis Hyperparathyroidism (HCC)- Primary Hyperparathyroidism, unspecified Primary hyperparathyroidism (HCC) Primary hyperparathyroidism [facility] [place] [facility]* Diagnosis Systemic lupus erythematosus, unspecified SLE type, unspecified organ involvement status ([facility])- Primary [facility] [place] [facility]* Diagnosis Mixed hyperlipidemia [facility] [place] [facility]* Diagnosis C. difficile colitis- Primary Intestinal infection due to clostridium difficile [facility] [place] [facility]* Diagnosis Osteopenia, unspecified location- Primary S/P parathyroidectomy (HCC) Other 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 status alf (current) use of 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 [facility] [place] [facility]* Diagnosis Diarrhea, unspecified type [facility] [place] [facility]* Diagnosis Diarrhea, unspecified type [facility] [place] [facility]* Diagnosis Primary osteoarthritis of both feet- Primary Primary osteoarthritis of both feet [facility] [place] [facility]* Diagnosis Systemic lupus erythematosus, unspecified SLE type, unspecified organ involvement status ([facility])- Primary High risk medication use Encounter for long-term (current) use of other medications documented in this encounter [facility] note* Diagnosis Diarrhea, unspecified type- Primary [facility] [place] [facility]* Diagnosis Diarrhea, unspecified type documented in this encounter [facility] note* Diagnosis Ulcer of toe of right foot, limited to breakdown of skin ([facility])- Primary Pre-ulcerative calluses Corns and callosities [facility] [place] [facility]* Diagnosis Systemic lupus erythematosus, unspecified SLE type, unspecified organ involvement status ([facility])- Primary Need for vaccination against Streptococcus pneumoniae Need for prophylactic vaccination against streptococcus pneumoniae (pneumococcus) [facility] [place] [facility]* Diagnosis Chronic diastolic heart failure (HCC)- Primary Chronic diastolic heart failure [facility] [place] [facility]* Diagnosis Ulcer of toe of right foot, limited to breakdown of skin ([facility])- Primary Pre-ulcerative calluses Corns and callosities Cellulitis of second toe of right foot Cellulitis and abscess of toe, unspecified [facility] [place] [facility]* Diagnosis Systemic lupus erythematosus, unspecified SLE type, unspecified organ involvement status (HCC) High risk medication use Encounter for long-term (current) use of other medications [facility] [place] [facility]* Diagnosis IBD (inflammatory bowel disease)- Primary Other and unspecified noninfectious gastroenteritis and colitis [facility] [place] [facility]* Diagnosis Ulcer of toe of right foot, limited to breakdown of skin (HCC)- Primary Pre-ulcerative calluses Corns and callosities [facility] [place] [facility]* Diagnosis Systemic lupus erythematosus, unspecified SLE type, unspecified organ involvement status (HCC)- Primary [facility] [place] [facility]* Diagnosis Diarrhea, unspecified type Epigastric pain Abdominal pain, epigastric [facility] [place] [facility]* Diagnosis Calculus of gallbladder without cholecystitis without obstruction Calculus of gallbladder without mention of cholecystitis or obstruction [facility] [place] [facility]* Diagnosis IBD (inflammatory bowel disease) Other and unspecified noninfectious gastroenteritis and colitis [facility] [place] [facility]* Diagnosis Systemic lupus erythematosus, unspecified SLE type, unspecified organ involvement status (HCC)- Primary Thin blood (HCC) Thrombocytopenia, unspecified [facility] [place] [facility]* Diagnosis Other ulcerative colitis without complication (HCC)- Primary Gastroesophageal reflux disease without esophagitis Esophageal reflux [facility] [place] [facility] Diagnosis Diarrhea, unspecified type [facility] [place] [facility]* Diagnosis Mixed hyperlipidemia- Primary Hypomagnesemia Disorders of magnesium metabolism [facility] [place] [facility]* Diagnosis Chronic kidney disease, unspecified CKD stage- Primary Systemic lupus erythematosus, unspecified SLE type, unspecified organ involvement status (HCC) [facility] [place] [facility]* Diagnosis Systemic lupus erythematosus, unspecified SLE type, unspecified organ involvement status (HCC)- Primary High risk medication use Encounter for long-term (current) use of other medications [facility] [place] [facility]* Diagnosis Pain in left foot- Primary Pain in limb [facility] [place] [facility] Diagnosis Ulcer of toe of right foot, limited to breakdown of skin (HCC)- Primary Pre-ulcerative calluses Corns and callosities Osteoarthritis of midtarsal joint of left foot Osteoarthritis of midtarsal joint of right foot [facility] Diagnosis Primary osteoarthritis of both feet- Primary Primary osteoarthritis of both feet [facility] [place] [facility]* Diagnosis Atypical atrial flutter (CMS/HCC)- Primary Paroxysmal atrial fibrillation (CMS/HCC) Atrial fibrillation Essential hypertension Unspecified essential hypertension Obstructive sleep apnea Obstructive sleep apnea (adult) (pediatric) Never smoked any substance Other forms of systemic lupus erythematosus, unspecified organ involvement status (CMS/HCC) Morbid obesity (CMS/HCC) Morbid obesity High risk medication use Dyslipidemia Other and unspecified hyperlipidemia documented in this encounter [facility] Work Phone: evaluation noteNo assessment information available [facility] Work Phone: Evaluation note* Diagnosis 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 [facility] Diagnosis Systemic lupus erythematosus, unspecified SLE type, unspecified organ involvement status ([facility])- Primary [facility] Diagnosis Pre-ulcerative calluses- Primary Corns and callosities Osteoarthritis of midtarsal joint of left foot Osteoarthritis of midtarsal joint of right foot [facility] Diagnosis Osteopenia, unspecified location- Primary S/P parathyroidectomy Other 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 status emt intermediate (current) use of 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 Vitamin D deficiency disease Unspecified vitamin D deficiency [facility] Diagnosis 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 [facility] Diagnosis Paroxysmal atrial fibrillation (CMS/HCC)- Primary Atrial fibrillation High risk medication use Essential hypertension Unspecified essential hypertension emt intermediate current use of anticoagulant therapy Obstructive sleep apnea Obstructive sleep apnea (adult) (pediatric) BMI 40.0-44.9, adult (CMS/HCC) Never smoked any substance Systemic lupus erythematosus, unspecified SLE type, unspecified organ involvement status (CMS/HCC) documented in this encounter [facility] Work Phone: evaluation note* Diagnosis Paroxysmal atrial fibrillation (CMS/HCC) Atrial fibrillation documented in this encounter [facility] Work Phone: Evaluation note* Diagnosis Atypical atrial flutter (CMS/HCC)- Primary Paroxysmal atrial fibrillation (CMS/HCC) Atrial fibrillation At medium risk for stroke Post-menopausal bleeding Postmenopausal bleeding Epistaxis documented in this encounter [facility] Work Phone: Evaluation note* Diagnosis Pre-ulcerative calluses- Primary Corns and callosities Osteoarthritis of midtarsal joint of left foot Hammertoe, bilateral Hav (hallux abducto valgus), unspecified laterality Pain due to onychomycosis of toenails of both feet [facility] [place] [facility]* Diagnosis Diarrhea, unspecified type- Primary Other ulcerative colitis without complication (HCC) [facility] [place] [facility] Diagnosis Systemic lupus erythematosus, unspecified SLE type, unspecified organ involvement status (HCC)- Primary [facility] [place] [facility]* Diagnosis Systemic lupus erythematosus, unspecified SLE type, unspecified organ involvement status (HCC)- Primary [facility] [place] [facility]* Diagnosis Persistent atrial fibrillation (Multi)- Primary Atrial fibrillation Atypical atrial flutter (Multi) Persistent atrial fibrillation (Multi) Atrial fibrillation Atypical atrial flutter (Multi) documented in this encounter [facility] Work Phone: Evaluation note* Diagnosis Systemic lupus erythematosus, unspecified SLE type, unspecified organ involvement status (HCC)- Primary [facility] [place] [facility]* Diagnosis Systemic lupus erythematosus, unspecified SLE type, unspecified organ involvement status (HCC) High risk medication use Encounter for long-term (current) use of other medications [facility] [place] [facility]* Diagnosis Osteopenia of multiple sites- Primary S/P parathyroidectomy Other 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 status emt intermediate (current) use of 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 Acute pain of left knee [facility] [place] [facility]* Diagnosis Osteopenia of multiple sites S/P parathyroidectomy Other 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 status alf (current) use of 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 Acute pain of left knee [facility] [place] [facility]* Diagnosis Osteopenia, unspecified location S/P parathyroidectomy Other 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 status alf (current) use of 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 Vitamin D deficiency disease Unspecified vitamin D deficiency documented in this encounter [facility] note* Diagnosis Systemic lupus erythematosus, unspecified SLE type, unspecified organ involvement status (HCC)- Primary documented in this encounter [facility] note* Diagnosis Primary osteoarthritis of left knee- Primary Primary localized osteoarthrosis, lower leg Tendinosis of quadriceps tendon documented in this encounter [facility] note* Diagnosis Membranous glomerulonephritis Nephritis and nephropathy, not specified as acute or chronic, with lesion of membranous glomerulonephritis documented in this encounter [facility] note* Diagnosis Preop examination- Primary Preoperative examination, [...] status (HCC)- Primary documented in this encounter [facility] note* Diagnosis Preop examination- Primary Preoperative examination, [...] unspecified chronicity- Primary documented in this encounter [facility] note* Diagnosis Preop examination- Primary Preoperative examination, [...] unspecified chronicity- Primary documented in this encounter [facility] note* Diagnosis Preop examination- Primary Preoperative examination, [...] unspecified chronicity- Primary documented in this encounter [facility] note* Diagnosis Preop examination- Primary Preoperative examination, [...] pain, unspecified chronicity documented in this encounter [facility] note* Diagnosis Preop examination- Primary Preoperative examination, [...] pain, unspecified chronicity documented in this encounter [facility] note* Diagnosis Pain Generalized pain Preop examination- [...] encounter [facility] note* Diagnosis Preop examination- Primary Preoperative examination, [...] status (HCC)- Primary documented in this encounter [facility] note* Diagnosis Preop examination- Primary Preoperative examination, [...] status (HCC)- Primary documented in this encounter [facility] note* Diagnosis Paroxysmal atrial fibrillation (Multi)- Primary Atrial fibrillation documented in this encounter [facility] Work Phone: Evaluation note* Diagnosis Paroxysmal atrial fibrillation (Multi) Atrial fibrillation Epistaxis Anemia, unspecified type Preop testing Unspecified pre-operative examination documented in this encounter [facility] Work Phone: Evaluation note* Diagnosis Paroxysmal atrial fibrillation (Multi) Atrial fibrillation Epistaxis Anemia, unspecified type Preop testing Unspecified pre-operative examination documented in this encounter [facility] Work Phone: Evaluation note* Diagnosis Paroxysmal atrial fibrillation (Multi)- Primary Atrial fibrillation documented in this encounter [facility] Work Phone: Evaluation note* Diagnosis Unilateral primary [...] hypertension Aneurysm of ascending aorta without rupture ([facility]) Obstructive sleep apnea Obstructive sleep apnea (adult) (pediatric) Never smoked any substance BMI 39.0-39.9,adult Deep vein thrombosis (DVT) of axillary vein of left upper extremity, unspecified chronicity (Multi) Other forms of systemic lupus erythematosus, unspecified organ involvement status (Multi) documented in this encounter [facility] Work Phone: evaluation note* Diagnosis Preop examination- [...] involvement status (HCC) [facility] [place] [facility]* Diagnosis Paroxysmal atrial fibrillation (Multi) Atrial fibrillation Epistaxis Anemia, unspecified type Preop testing Unspecified pre-operative examination documented in this encounter [facility] Work Phone: Evaluation note* Diagnosis Chronic diastolic heart failure Shortness of breath documented in this encounter [facility] Work Phone: Evaluation note* Diagnosis Viral upper respiratory tract infection- Primary Acute upper respiratory infections of unspecified site [facility] Diagnosis Preop examination- Primary [...] without complication (HCC) [facility] Diagnosis Medicare annual wellness visit, subsequent- Primary Screening for depression [facility]* Diagnosis Essential hypertension- Primary Unspecified essential hypertension Localized osteoarthritis of left knee Varicose veins of left upper extremity Localized swelling, mass and lump, head Mixed hyperlipidemia Acquired hypothyroidism Unspecified hypothyroidism Hyperparathyroidism ([facility]) Hyperparathyroidism, unspecified Obesity, morbid ([facility]) Morbid obesity Encounter for screening mammogram for malignant neoplasm of breast Anxiety Anxiety state, unspecified [facility]* Diagnosis Acute deep vein thrombosis (DVT) of brachial vein of left upper extremity (CMS-HCC)- Primary Localized osteoarthritis of right knee Essential hypertension Unspecified essential hypertension Obesity, morbid ([facility]) Morbid obesity Need for immunization against influenza Need for prophylactic vaccination and inoculation against influenza [facility]* Diagnosis Acute deep vein thrombosis (DVT) of brachial vein of left upper extremity ([facility])- Primary Paroxysmal atrial fibrillation ([facility]) Atrial fibrillation Stage 3a chronic kidney disease ([facility]) Localized osteoarthritis of right knee Obesity, morbid ([facility]) Morbid obesity [facility]* Diagnosis Upper respiratory tract infection, unspecified type- Primary Pharyngitis, unspecified etiology [facility]* Diagnosis Preop examination- Primary Preoperative examination, unspecified Other ulcerative colitis without complication (HCC) Atrial fibrillation, unspecified type (HCC) Essential hypertension Unspecified essential hypertension Sleep apnea, unspecified type Membranous glomerulonephritis Nephritis and nephropathy, not specified as acute or chronic, with lesion of membranous glomerulonephritis Systemic lupus erythematosus, unspecified SLE type, unspecified organ involvement status ([facility]) Edema, unspecified type Obesity, Class III, BMI >= 40 Morbid obesity Pre-op evaluation- Primary Preoperative examination, unspecified Ascending aortic aneurysm, unspecified whether ruptured ([facility]) Obesity, Class II, BMI 35-39.9 Obesity, unspecified [...] status (HCC)- Primary [facility] [place] [facility]* Diagnosis Obstructive sleep apnea- Primary Obstructive sleep apnea (adult) (pediatric) Dyspnea on exertion Other dyspnea and respiratory abnormality Systemic lupus erythematosus, unspecified SLE type, unspecified organ involvement status ([facility]) Acute deep vein thrombosis (DVT) of brachial vein of left upper extremity ([facility]) Obesity, morbid ([facility]) Morbid obesity Chronic diastolic heart failure ([facility]) Atypical atrial flutter ([facility]) documented [facility]* Diagnosis Preop examination- Primary [...] Hypertension, unspecified type documented in this encounter [facility] note* Diagnosis Preop examination- Primary Preoperative examination, [...] encounter [facility] note* Diagnosis Preop examination- Primary Preoperative examination, [...] status (HCC)- Primary [facility] [place] [facility]* Diagnosis Localized osteoarthritis of left knee- Primary [facility] [place] [facility] Diagnosis Preop [...] encounter [facility] note* Diagnosis Preop examination- Primary Preoperative examination, [...] status (HCC)- Primary [facility] Diagnosis Paroxysmal atrial fibrillation (Multi)- Primary Atrial fibrillation Presence of Watchman left atrial appendage closure device Deep vein thrombosis (DVT) of upper extremity, unspecified chronicity, unspecified laterality, unspecified vein alf current use of anticoagulant therapy Chronic diastolic [...] involvement status (Multi) documented in this encounter [facility] Work Phone: Evaluation note* Diagnosis Acute right ankle pain- Primary Pedal edema Edema [facility]* Diagnosis Preop examination- Primary [...] Pain in limb documented in this encounter [facility] note* Diagnosis Preop examination- Primary Preoperative examination, [...] of right foot documented in this encounter [facility] note* Diagnosis Preop examination- Primary Preoperative examination, [...] Pain in limb [facility] [place] [facility]* Diagnosis Preop [...] 40 Morbid obesity [facility] [place] [facility]* Diagnosis Intertrigo- Primary Other specified erythematous condition Essential hypertension Unspecified essential hypertension Closed nondisplaced fracture of navicular bone of right foot with routine healing, subsequent encounter Paroxysmal atrial fibrillation ([facility]) Atrial fibrillation Obesity, morbid ([facility]) Morbid obesity Chronic depression [facility]* Diagnosis Preop examination- Primary [...] 40 Morbid obesity Left-sided epistaxis- Primary Epistaxis emt intermediate (current) use of anticoagulants Long-term (current) use of anticoagulants documented [facility] [place] [facility]* Diagnosis Preop examination- [...] subsequent encounter- Primary [facility] [place] [facility]* Diagnosis Preop [...] of right foot documented in this encounter [facility] note* Diagnosis Preop examination- Primary Preoperative examination, [...] initial encounter- Primary documented in this encounter [facility] note* Diagnosis Preop examination- Primary Preoperative examination, [...] Other diseases of nasal cavity and sinuses alf (current) use of anticoagulants Long-term (current) use of anticoagulants documented in this encounter [facility] note* Diagnosis Preop examination- Primary Preoperative examination, [...] status (HCC)- Primary documented in this encounter [facility] note* Diagnosis Pre-operative clearance- Primary Unspecified pre-operative examination BMI 40.0-44.9, adult (Multi) Paroxysmal atrial fibrillation (Multi) Atrial fibrillation emt intermediate current use of anticoagulant therapy Deep vein thrombosis (DVT) of upper extremity, unspecified chronicity, unspecified laterality, unspecified vein Presence of Watchman left atrial appendage closure device documented in this encounter [facility] Work Phone: Evaluation note* Diagnosis Preop examination- [...] Pain in limb documented in this encounter [facility] note* Diagnosis Preop examination- Primary Preoperative examination, [...] and foot, right [facility] [place] [facility]* Diagnosis Preop examination- [...] of bone, unspecified documented in this encounter [facility] note* Diagnosis Preop examination- Primary Preoperative examination, [...] and cartilage, unspecified [facility] Diagnosis Preop examination- Primary Preoperative [...] unspecified SLE type, unspecified organ involvement status ([facility]) Obesity, Class III, BMI >= 40 Morbid [...] EDT Associated Problem(s): SLE (systemic lupus erythematosus) ([facility]) Assessment: in remission on meds, follows with [...] resume once hemostasis obtained. Abisai Barraza MSN, PIPE PROCESSOR-JEWELRY MAKER, PMHNP-BC (Our [facility] office later clarified that [...] ablation with pulmonary vein isolation at [facility] that was done 3 times started in [...] 141/78 11/16/2024 136/64 [facility] Diagnosis Preop examination- Primary Preoperative [...] Charcot arthropathy- Primary [facility] [place] [facility]* Diagnosis Preop examination- [...] Charcot arthropathy- Primary [facility] Diagnosis Diarrhea of presumed infectious origin- Primary documented [facility]* Diagnosis Preop examination- Primary [...] both feet- Primary [facility] [place] [facility]* Diagnosis Preop [...] Charcot arthropathy- Primary [facility]* Initiate Home Health Time Frame: 1 Day, Location: Determined By Patient Additional Instructions Home Health to manage care: - Full code - PT/OT eval and treat - Routine vital signs - Medication management and education - [facility] Work Phone: InstructionsNot on filedocumented in [...] W/TOMOGRAPHIC SPECT & CT Monica Booker MD [address] [place] [address] Molecular & Functional Imaging [address] [place] [address] Referral IDStatusReasonStart DateExpiration DateVisits RequestedVisits [id number] Auto-Generated Referral [facility] for referral (narrative)* Diagnostic Procedure Only (Routine) - ClosedSpecialtyDiagnoses / ProceduresReferred By ContactReferred To ContactMOLECULAR & FUNCTIONAL IMAGING Diagnoses Hyperparathyroidism (HCC) Procedures NM PARATHYROID W SPECT/CT PARATHYROID IMAGING W/TOMOGRAPHIC SPECT & CT Monica Booker MD [address] [place] [address] Molecular & Functional Imaging [address] [place] [address] Referral IDStatusReasonStart DateExpiration DateVisits RequestedVisits [id number] Auto-Generated Referral [facility] for referral (narrative)* Outpatient Procedure (Routine) - AuthorizedSpecialtyDiagnoses / ProceduresReferred By ContactReferred To [facility] Diagnoses IBD (inflammatory bowel disease) Procedures COLONOSCOPY DIAGNOSTIC COLONOSCOPY FLX DX W/COLLJ SPEC WHEN Dione Starr MD [address] [place] [address] [facility] [address] [place] [address] Referral IDStatusReasonStart DateExpiration DateVisits RequestedVisits [id number] Auto-Generated Referral [facility] for referral (narrative)* Outpatient Procedure (Routine) - ClosedSpecialtyDiagnoses / ProceduresReferred By ContactReferred To Contact [facility] Diagnoses Diarrhea, unspecified type Epigastric pain Procedures EGD DIAGNOSTIC ESOPHAGOGASTRODUODENOSCOPY TRANSORAL DIAGNOSTIC Dione Frances MD [address] [place] [address] [address] Referral IDStatusReasonStart DateExpiration DateVisits RequestedVisits [id number] Auto-Generated Referral / * Outpatient Procedure (Routine) - ClosedSpecialtyDiagnoses / ProceduresReferred By ContactReferred To [facility] Diagnoses Diarrhea, unspecified type Epigastric pain Procedures COLONOSCOPY DIAGNOSTIC COLONOSCOPY FLX DX W/COLLJ SPEC WHEN Dione Starr MD [address] [place] [address] [address] Referral IDStatusReasonStart DateExpiration DateVisits RequestedVisits [id number] Auto-Generated Referral / [facility] for referral (narrative)* Outpatient Procedure (Routine) - ClosedSpecialtyDiagnoses / ProceduresReferred By ContactReferred To Contact [facility] Diagnoses IBD (inflammatory bowel disease) Procedures COLONOSCOPY DIAGNOSTIC COLONOSCOPY FLX DX W/COLLJ SPEC WHEN Dione Starr MD [address] [facility] [place] [address] [place] [address] Referral IDStatusReasonStprovidence DateExpiration DateVisits RequestedVisits [id number] Auto-Generated Referral / [facility] for referral (narrative)* Diagnostic Procedure Only (Routine) - Pending ReviewSpecialtyDiagnoses / ProceduresReferred By Contact Referred To ContactXR IMAGING Diagnoses Pain in left foot Procedures XR FOOT GENERAL 3V AP/LAT/OBL LEFT RADEX FOOT COMPLETE MINIMUM 3 VIEWS Beverly Franco, KHADIJAH [address] [place] [address] Xr Imaging [facility] Referral IDStatusReasonStprovidence DateExpiration DateVisits RequestedVisits [id number] Review Auto-Generated Referral [facility] for referral (narrative)* Diagnostic Procedure Only (Routine) - Pending ReviewSpecialtyDiagnoses / ProceduresReferred By Contact Referred To ContactXR IMAGING Diagnoses Osteopenia, unspecified location S/P parathyroidectomy alf (current) use of 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 Vitamin D deficiency disease Procedures DXA-AXIAL SKELETON WITH VFA DXA BONE DENSITY STUDY AXIAL SKELETON Obdulia Ann PA-C [address] [address] Xr Imaging [facility] Referral IDStatusReasonStart DateExpiration DateVisits RequestedVisits [id number] Review Auto-Generated Referral / [facility] for referral (narrative)* Diagnostic Procedure Only (Routine) - AuthorizedSpecialtyDiagnoses / ProceduresReferred By Contact Referred To ContactUS IMAGING Diagnoses Membranous glomerulonephritis Procedures US KIDNEY/BLADDER US RETROPERITONEAL REAL TIME W/IMAGE COMPLETE Radu Salazar MD [address] [id number] Us Imaging [place] [address] Referral IDStatusReasonStart DateExpiration DateVisits RequestedVisits [id number] Auto-Generated Referral [facility] for referral (narrative)* Diagnostic Procedure Only (Routine) - ClosedSpecialtyDiagnoses / ProceduresReferred By ContactReferred To ContactXR IMAGING Diagnoses Osteopenia of multiple sites S/P parathyroidectomy emt intermediate (current) use of 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 Acute pain of left knee Procedures XR KNEE GENERAL 4V AP BOTH/PA BOTH/LAT/MERC LEFT RADIOLOGIC EXAM KNEE COMPLETE 4/MORE VIEWS Obdulia Ann PA-C [address] [place] [address] Xr Imaging [place] [address] Referral IDStatusReasonStart DateExpiration DateVisits RequestedVisits [id number] Auto-Generated Referral [facility] for referral (narrative)* Diagnostic Procedure Only (Routine) - ClosedSpecialtyDiagnoses / ProceduresReferred By ContactReferred To ContactXR IMAGING Diagnoses Osteopenia of multiple sites S/P parathyroidectomy emt intermediate (current) use of 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 Acute pain of left knee Procedures XR KNEE GENERAL 4V AP BOTH/PA BOTH/LAT/MERC LEFT RADIOLOGIC EXAM KNEE COMPLETE 4/MORE VIEWS Obdulia Ann PA-C [address] [place] [id number] Xr Imaging [place] [address] Referral IDStatusReasonStart DateExpiration DateVisits RequestedVisits [id number] Auto-Generated Referral [facility] for referral (narrative)* Diagnostic Procedure Only (Routine) - ClosedSpecialtyDiagnoses / ProceduresReferred By ContactReferred To ContactXR IMAGING Diagnoses Osteopenia, unspecified location S/P parathyroidectomy emt intermediate (current) use of 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 Vitamin D deficiency disease Procedures DXA-AXIAL SKELETON WITH VFA DXA BONE DENSITY STUDY AXIAL SKELETON Obdulia Ann PA-C [address] [address] [place] [address] Referral IDStatusReasonStart DateExpiration DateVisits RequestedVisits [id number] Auto-Generated Referral / [facility] for referral (narrative)* Diagnostic Procedure Only (Routine) - ClosedSpecialtyDiagnoses / ProceduresReferred By ContactReferred To ContactXR IMAGING Diagnoses Left knee pain, unspecified chronicity Procedures XR KNEE SPECIFY 1V LEFT RADIOLOGIC EXAMINATION KNEE 1/2 VIEWS Alfredo Norwood PA-C [address] [place] [address] [place] [address] Referral IDStatusReasonStart DateExpiration DateVisits RequestedVisits [id number] Auto-Generated Referral [facility] for referral (narrative)* Diagnostic Procedure Only (Routine) - ClosedSpecialtyDiagnoses / ProceduresReferred By ContactReferred To ContactXR IMAGING Diagnoses Left knee pain, unspecified chronicity Procedures XR KNEE SPECIFY 1V LEFT RADIOLOGIC EXAMINATION KNEE 1/2 VIEWS Alfredo Norwood PA-C [address] [place] [address] [place] [address] Referral IDStatusReasonStart DateExpiration DateVisits RequestedVisits [id number] Auto-Generated Referral [facility] for visit Narrative* Diagnostic Procedure Only (Routine) - ClosedSpecialtyDiagnoses / ProceduresReferred By ContactReferred To Contact MOLECULAR & FUNCTIONAL IMAGING Diagnoses Hyperparathyroidism (HCC) Procedures NM PARATHYROID W SPECT/CT PARATHYROID IMAGING W/TOMOGRAPHIC SPECT & CT Monica Booker MD [address] [phone] Molecular & Functional Imaging [address] [place] [address] Referral IDStatusReasonStart DateExpiration DateVisits RequestedVisits [id number] Auto-Generated Referral [facility] for visit Narrative* Outpatient Procedure (Routine) - ClosedSpecialtyDiagnoses / ProceduresReferred By ContactReferred To Contact [facility] [place] Diagnoses Diarrhea, unspecified type Epigastric pain Procedures EGD DIAGNOSTIC ESOPHAGOGASTRODUODENOSCOPY TRANSORAL DIAGNOSTIC Dione Frances MD [address] [facility] [place] [address] [facility] Disease [address] [address] Referral IDStatusReasonAztec DateExpiration DateVisits RequestedVisits [id number] Auto-Generated Referral / [facility] for visit Narrative* Outpatient Procedure (Routine) - ClosedSpecialtyDiagnoses / ProceduresReferred By ContactReferred To Contact [facility] [place] Diagnoses IBD (inflammatory bowel disease) Procedures COLONOSCOPY DIAGNOSTIC COLONOSCOPY FLX DX W/COLLJ SPEC WHEN PFRMD Dione Frances MD [address] [facility] [place] [address] [facility] Disease [address] [address] Referral IDStatusReasonStart DateExpiration DateVisits RequestedVisits [id number] Auto-Generated Referral / [facility] for visit Narrative* Diagnostic Procedure Only (Routine) - ClosedSpecialtyDiagnoses / ProceduresReferred By ContactReferred To Contact XR IMAGING Diagnoses Osteopenia, unspecified location S/P parathyroidectomy alf (current) use of 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 Vitamin D deficiency disease Procedures DXA-AXIAL SKELETON WITH VFA DXA BONE DENSITY STUDY AXIAL SKELETON Obdulia Ann PA-C [address] [address] Xr Imaging [place] [address] Referral IDStatusReasonStprovidence DateExpiration DateVisits RequestedVisits [id number] Auto-Generated Referral [facility] for visit Narrative* Auth/CertSpecialtyDiagnoses / ProceduresReferred By ContactReferred To Contact Diagnoses Paroxysmal atrial fibrillation (Multi) Epistaxis Anemia, unspecified type Preop testing Paroxysmal atrial fibrillation (Multi) [I48.0] Epistaxis [R04.0] Anemia, unspecified type [D64.9] Preop testing [Z01.818] Procedures [place] PERQ CLSR TCAT L ATR APNDGE W/ENDOCARDIAL IMPLNT [place] [address] [place] [address] [facility] [id number] [address]vepinv [address] [facility] [address] [place] [address] Referral IDStatus[facility] DateExpiration DateVisits RequestedVisits [id number] [facility] Work Phone: [place] for visit Narrative* Imaging (Routine) - Pending ReviewSpecialtyDiagnoses / ProceduresReferred By ContactReferred To ContactRadiology Diagnoses Paroxysmal atrial fibrillation (Multi) Epistaxis Anemia, unspecified type Preop testing Procedures [place] [address] [place] [address] Phone: tel: fax: Referral IDStatBisiasonStart DateExpiration DateVisits RequestedVisits [id number] Review Perform Procedure / [facility] Work Phone: reason for visit Narrative* CV Imaging (Routine) - AuthorizedSpecialtyDiagnoses / ProceduresReferred By ContactReferred To ContactCardiology Diagnoses Chronic diastolic heart failure Shortness of breath Procedures Transthoracic Echo Complete [place] ECHO TTHRC R-T 2D W/WOM-MODE COMPL SPEC&COLR D Yuriy Conway MD [address] [facility] [address] [place] [address] Phone: tel: fax: Referral IDStatusReasonStart DateExpiration DateVisits RequestedVisits [id number] Perform Procedure [facility] Work Phone: reason for visit Narrative* MRI/CT (Routine) - Closed SpecialtyDiagnoses / ProceduresReferred By ContactReferred To ContactCT IMAGING Diagnoses Closed fracture of left foot, initial encounter Procedures CT FOOT WO IVCON LEFT CT LOWER EXTREMITY W/[place] [address] [place] [address] Phone: tel: fax: [place] [address] Referral IDStatusReEl[facility] Hospital DateExpiration DateVisits RequestedVisits [id number] Auto-Generated Referral / [facility] Summary Purpose Family History Relationship Condition [...] Volume: 250 mL Protect From Light New Bag/Syringe/Kktuyj1112/09/2021 12:56 PM EDT1,000 mg125 mL/hr methylPREDNISolone sod [...] Volume: 250 mL Protect From Light New Bag/Syringe/Jmmrnu0503/13/2022 12:32 PM EDT1,000 mg125 mL/hr methylPREDNISolone sod [...] Yes, AMB MED ORDERS Given03/13/2022 12:58 PM XLZ553 mgButtocks, Left tixagevimab 300 mg intramuscular injection [...] administered., AMB MED ORDERS Given03/13/2022 12:58 PM YRM300 mgButtocks, RightMedication OrderMAR Action Action DateDoseRateSite acetaminophen [...] Volume: 250 mL Protect From Light New Bag/Syringe/Vtvgpt3506/12/2022 1:28 PM EDT1,000 mg125 mL/hr methylPREDNISolone sod [...] Volume: 250 mL Protect From Light New Bag/Syringe/Aufkrw7709/15/2022 10:55 AM EST1,000 mg125 mL/hr methylPREDNISolone sod [...] Volume: 250 mL Protect From Light New Bag/Syringe/Kbujql1312/15/2022 10:44 AM EDT1,000 mg125 mL/hr methylPREDNISolone sod [...] Total Volume: 250 mL Protect FromLight New Bag/Syringe/Ckneow2803/19/2023 10:37 AM EDT1,000 mg125 mL/hr methylPREDNISolone sod succinate(PF) 60 mg injection (SOLU-Medrol) 60 mg, INTRAVENOUS, ONCE, 1 dose, On Thu03/19/23 at 1000 Given03/19/2023 10:20 AM EDT60 mgMedication OrderMAR ActionAction DateDoseRate Site benzocaine 20% 1 [place]ons (TOPEX) 1 [place]ons, TOPICAL, DIRECTED, Starting on Thu09/12/21 at 0800, Until Thu09/12/21 at 1159, DOSING DIRECTED BY PHYSICIAN FOR PROCEDURAL SEDATION ONLY - Pharmaceutical Waste: Aerosol -, Intraprocedure Given09/12/2021 7:43 AM EST1 [place]ons NaCl 0.9% iv infusion 30 mL/hr, INTRAVENOUS, CONTINUOUS, Starting on Theresa 09/12/21 at 0730, Until Theresa 09/12/21 at 0702, Preprocedure New Bag/Syringe/Uirwfd4609/12/2021 7:20 AM EST30 mL/hr30 mL/hrMedication OrderMAR ActionAction DateDoseRateSite NaCl 0.9% iv infusion 30 mL/hr, INTRAVENOUS, CONTINUOUS, Starting on Theresa 04/02/23 at 0730, Until Theresa 04/02/23 at 0900, Preprocedure New Bag/Syringe/Jibazj2504/02/2023 7:16 AM EDT30 mL/hr30 mL/hrMedication OrderMAR ActionAction [...] Volume: 250 mL Protect From Light New Bag/Syringe/Gsmypl2507/01/2023 9:42 AM EST1,000 mg125 mL/hr methylPREDNISolone sod [...] organ involvement status (HCC) Evelin Abel MD [address] [id number] Referral IDStatusBisiEl[facility] Hospital DateExpiration DateVisits RequestedVisits [id number] / ProceduresReferred By Contact Referred To [facility] IMAGING Diagnoses Hypertrophic obstructive cardiomyopathy (HCC) Procedures MRI CARDIAC VELOCITY FLOW MAP CARDIAC MRI FOR VELOCITY FLOW MAPPING Mann Ramos MD [address] [place] [address] Mr Imaging Referral IDStatusReasonAztec DateExpiration DateVisits RequestedVisits [id number] Review Auto-Generated Referral /[id number] / ProceduresReferred By ContactReferred To ContactMR IMAGING Diagnoses Hypertrophic obstructive cardiomyopathy (HCC) Procedures MRI CARDIAC MORPH FUNC WO/W IVCON CARDIAC MRI W/WO CONTRAST & FURTHER SEQ Mann Ramos MD [address] [place] [address] Mr Imaging Referral IDStatusReAztec DateExpiration DateVisits RequestedVisits [id number] Review Auto-Generated Referral [id number] / ProceduresReferred By ContactReferred To [facility] Diagnoses Hypertrophic obstructive cardiomyopathy (HCC) Procedures ECHO ECHO TTHRC R-T 2D W/WOM-MODE COMPL SPEC&COLR D Mann Ramos MD [address] [place] [address] [facility][Note 3] [place] [address] Referral IDStatusRe[facility] DateExpiration DateVisits RequestedVisits [id number] Review Auto-Generated Referral [id number] / ProceduresReferred By ContactReferred To [facility] Diagnoses Hypertrophic obstructive cardiomyopathy (HCC) Procedures ECG COMPLETE ECG ROUTINE ECG W/LEAST 12 LDS W/I&R Mann Ramos MD [address] [place] [address] [place] [address] [facility] DateExpiration DateVisits RequestedVisits [id number] Review Auto-Generated Referral [id number] / ProceduresReferred By ContactReferred To ContactEndocrinology Diagnoses Hypercalcemia Hyperparathyroid (HCC) Procedures CONSULT TO ENDOCRINOLOGY OFFICE/OUTPATIENT [facility] 60-74 MINUTES Obdulia Peña PA-C [address] [place] [address] Referral IDStatusReasonStprovidence DateExpiration DateVisits RequestedVisits [id number] PCP Requested Referral [id number] / ProceduresReferred By ContactReferred To Contact Diagnoses Hypercalcemia Hyperparathyroid (HCC) Procedures CONSULT TO ENDOCRINE SURGERY OFFICE/OUTPATIENT [facility] 60-74 MINUTES Lemuel Bejarano V, MD [address] [place] [address] Referral IDStatusReasonStart DateExpiration DateVisits RequestedVisits [id number] PCP Requested Referral [id number] / ProceduresReferred By ContactReferred To ContactNephrology Diagnoses Chronic kidney disease, unspecified CKD stage Systemic lupus erythematosus, unspecified SLE type, unspecified organ involvement status (HCC) Procedures CONSULT TO NEPHROLOGY OFFICE/OUTPATIENT [facility] 60-74 MINUTES Nadege Murphy DO [address] [place] [address] Referral IDStatusReasonStart DateExpiration DateVisits RequestedVisits [id number] PCP Requested Referral /[id number] / ProceduresReferred By ContactReferred To ContactCardiology Diagnoses Paroxysmal atrial fibrillation (CMS/HCC) Procedures Cardioversion External Yuriy Conway MD [address] [place] [facility] [address], [address] [address] Referral IDStatusReasonStart DateExpiration DateVisits RequestedVisits [id number] [id number] / ProceduresReferred By ContactReferred To Contact Diagnoses Paroxysmal atrial fibrillation (CMS/HCC) Procedures ECG 12 Lead Yuriy Conway MD [address] [facility] 2, [address] [address] Referral IDStatusReasonStart DateExpiration DateVisits RequestedVisits [id number]/1/20241/31/199359PhicmrjmvEekpzvufn / Procedures Referred By ContactReferred To ContactCardiology Diagnoses Paroxysmal atrial fibrillation (CMS/HCC) Procedures Follow Up In Cardiology Yuriy Conway MD [address] [facility] [address] [place] [address] Yuriy Conway MD [address] [facility] [address] [place] [address] Referral IDStatusReasonStart DateExpiration DateVisits RequestedVisits [id number]/1/20241/31/585947WkqfkwghhRkttpawks / Procedures Referred By ContactReferred To ContactMR IMAGING Diagnoses Pancreatic cyst Procedures MRI 3D POST PROCESSING 3D RENDERING W/INTERP&POSTPROC DIFF WORK STATION Rima Mcallister APRN.JEWELRY MAKER [address] [place] [address] Mr Imaging [place] [address] Referral IDStatusReasonStart DateExpiration DateVisits RequestedVisits [id number] Review Auto-Generated Referral [id number] / ProceduresReferred By ContactReferred To ContactMR IMAGING Diagnoses Pancreatic cyst Procedures MRI PANC/JEANIE WO/W IVCON MRI ABDOMEN W/O & W/CONTRAST MATERIAL Rima Mcallister APRN.JEWELRY MAKER [address] [id number] Mr Imaging [place] [address] Referral IDStatusReasonStart DateExpiration DateVisits RequestedVisits [id number] Review Auto-Generated Referral 1Referral IDStatusReasonStart DateExpiration DateVisits RequestedVisits [id number] Auto-Generated Referral 1Referral IDStatusReasonStart DateExpiration DateVisits RequestedVisits [id number]/14/20243/14/981599Wheihfuob Diagnoses / ProceduresReferred By ContactReferred To ContactCardiology Diagnoses Paroxysmal atrial fibrillation (CMS/HCC) Yuriy Conway MD [address] [facility] [address] [place] [id number] [place]ino [place] [id number] [place] [address] Referral IDStatusReasonStart DateExpiration DateVisits RequestedVisits [id number] Specialty Services Required 1Referral IDStatusReasonStart DateExpiration DateVisits RequestedVisits [id number]/14/20243/14/249060Mdggfobi IDStatus ReasonStart DateExpiration DateVisits RequestedVisits [id number] [id number] / ProceduresReferred By Contact Referred To Contact Diagnoses Paroxysmal atrial fibrillation (CMS/HCC) Atypical atrial flutter (CMS/HCC) Procedures ECG 12 lead (Clinic Performed) Juan Chino [place] [address] [place] [address] Referral IDStatusReasonStart DateExpiration DateVisits RequestedVisits [id number]/1/20244/743743UabkhvyruTlweejget / Procedures Referred By ContactReferred To Contact Diagnoses Paroxysmal atrial fibrillation (Multi) Procedures ECG 12 lead (Clinic Performed) Christian Kaur, ANTONIO-JOHNATHAN [address] [place] [address] Referral IDStatusReasonStart DateExpiration DateVisits RequestedVisits [id number]/1/20247/1/408302BrakerxqwFoxpxvdom / Procedures Referred By ContactReferred To ContactRadiology Diagnoses Paroxysmal atrial fibrillation (Multi) Epistaxis Anemia, unspecified type Preop testing Procedures [place] [address] [place] [address] Referral IDStatusReasonStprovidence DateExpiration DateVisits RequestedVisits [id number] Perform Procedure eferral IDStatusReasonAztec DateExpiration DateVisits RequestedVisits [id number]/30/20249/117620Cjggvjvqn Diagnoses / ProceduresReferred By ContactReferred To ContactRehabilitation Diagnoses Localized osteoarthritis of left knee Wojciech Treviño, DO [address] [facility], [place] [address] Referral IDStatusReasonStprovidence DateExpiration DateVisits RequestedVisits [id number] Review Specialty Services Required Chief Complaint JESUS WOLF is being seen for an annual follow-up of.* JESSU WOLF is being seen for an annual follow-up of. * Patient is in the office after more than 2 years hiatus where [facility] She is in need for cardiac clearance prior to surgery. The patient has done well in thelast couple of years but was not very happy with the care she was receiving at the [facility]. She had ablation for atrial fibrillation couple years back at [facility] with Dr. Chino with no recurrences. She is not on antiarrhythmic therapy but has been on anticoagulation with Eliquis. She has no indication previous coronary heart disease but never had a stress test or cardiac catheterization. Her last echocardiogram from September 2021 at the [facility] revealed mildly dilated ascending aorta at [...] ablation with pulmonary vein isolation at [facility] in 2020. She will continue on Eliquis [...] 8. Systemic Lupus managed by rheumatology at [facility] on multiple medications and stable * [...] years hiatus where [facility]. She is in need for cardiac clearance prior to surgery. The patient has done well in thelast couple of years but was not very happy with the care she was receiving at the [facility]. She had ablation for atrial fibrillation couple years back at [facility] with Dr. Chino with no recurrences. She is not on antiarrhythmic therapy but has been on anticoagulation with Eliquis. She has no indication previous coronary heart disease but never had a stress test or cardiac catheterization. Her last echocardiogram from September 2021 at the [facility] revealed mildly dilated ascending aorta at [...] ablation with pulmonary vein isolation at [facility] in 2020. She will continue on Eliquis [...] 8. Systemic Lupus managed by rheumatology at [facility] on multiple medications and stable * [...] years hiatus where [facility]. She is in need for cardiac clearance prior to surgery. The patient has done well in thelast couple of years but was not very happy with the care she was receiving at the [facility]. She had ablation for atrial fibrillation couple years back at [facility] with Dr. Chino with no recurrences. She is not on antiarrhythmic therapy but has been on anticoagulation with Eliquis. She has no indication previous coronary heart disease but never had a stress test or cardiac catheterization. Her last echocardiogram from September 2021 at the [facility] revealed mildly dilated ascending aorta at [...] ablation with pulmonary vein isolation at [facility] in 2019. She will continue on Eliquis [...] 8. Systemic Lupus managed by rheumatology at [facility] on multiple medications and stable * [...] medication was advised. * Yuriy Conway MD, [facility] Health Concerns InfectionOnset DateLast IndicatedResolved TimeC. [id number] Additional Source Comments INFORMATION SOURCE (unrecogn ized section and content) DATE CREATED AUTHOR 10/21/2018 [facility] DATE CREATED AUTHOR AUTHOR'S ORGANIZ ATION 04/30/2021 [facility] DATE CREATED AUTHOR AUTHOR'S ORGANIZ ATION 09/10/2021 [employer] DATE CREATED AUTHOR AUTHOR'S ORGANIZ ATION 08/08/2022 [employer] DATE CREATED AUTHOR AUTHOR'S ORGANIZ ATION 09/23/2022 [facility] DATE CREATED AUTHOR AUTHOR'S ORGANIZ ATION 12/18/2022 [facility] DATE CREATED AUTHOR AUTHOR'S ORGANIZ ATION 05/10/2024 [facility] DATE CREATED AUTHOR AUTHOR'S ORGANIZ ATION 05/18/2024 [facility] DATE CREATED AUTHOR AUTHOR'S ORGANIZ ATION 09/03/2024 [facility] DATE CREATED AUTHOR AUTHOR'S ORGANIZ ATION 09/21/2024 [facility] DATE CREATED AUTHOR AUTHOR'S ORGANIZ ATION 09/29/2024 [facility] DATE CREATED AUTHOR AUTHOR'S ORGANIZ ATION 12/30/2024 [facility] DATE CREATED AUTHOR AUTHOR'S ORGANIZ ATION 02/04/2025 [facility] DATE CREATED AUTHOR AUTHOR'S ORGANIZ ATION 03/06/2025 [facility] DATE CREATED AUTHOR AUTHOR'S ORGANIZ ATION 04/06/2025 [facility] DATE CREATED AUTHOR AUTHOR'S ORGANIZ ATION 04/24/2025 [facility] DATE CREATED AUTHOR AUTHOR'S ORGANIZ ATION 06/27/2025 [place] [facility] Source Comments (unrecognize d section and content) In the event this informatio n is protected by the Federal Confidentiality of Alcohol and Drug Abuse Patient Records regulations: The Federal rules restrict any use of the information to criminally investigate or prosecute any alcohol or drug abuse patient.[facility]In the event this information is protected by the Federal Confidentiality of Alcohol and Drug Abuse Patient Records regulations: The Federal rules restrict any use of the information to criminally investigate or prosecute any alcohol or drug abuse patient.[facility] HospitalIn the event this information is protected by the Federal Confidentiality of Alcohol and Drug Abuse Patient Records regulations: The Federal rules restrict any use of the information to criminally investigate or prosecute any alcohol or drug abuse patient.[facility] HospitalIn the event this information is protected by the Federal Confidentiality of Alcohol and Drug Abuse Patient Records regulations: The Federal rules restrict any use of the information to criminally investigate or prosecute any alcohol or drug abuse patient.[facility] HospitalIn the event this information is protected by the Federal Confidentiality of Alcohol and Drug Abuse Patient Records regulations: The Federal rules restrict any use of the information to criminally investigate or prosecute any alcohol or drug abuse patient.[facility] HospitalIn the event this information is protected by the Federal Confidentiality of Alcohol and Drug Abuse Patient Records regulations: The Federal rules restrict any use of the information to criminally investigate or prosecute any alcohol or drug abuse patient.[facility] HospitalIn the event this information is protected by the Federal Confidentiality of Alcohol and Drug Abuse Patient Records regulations: The Federal rules restrict any use of the information to criminally investigate or prosecute any alcohol or drug abuse patient.[facility] HospitalIn the event this information is protected by the Federal Confidentiality of Alcohol and Drug Abuse Patient Records regulations: The Federal rules restrict any use of the information to criminally investigate or prosecute any alcohol or drug abuse patient.[facility] HospitalIn the event this information is protected by the Federal Confidentiality of Alcohol and Drug Abuse Patient Records regulations: The Federal rules restrict any use of the information to criminally investigate or prosecute any alcohol or drug abuse patient.[facility] HospitalIn the event this information is protected by the Federal Confidentiality of Alcohol and Drug Abuse Patient Records regulations: The Federal rules restrict any use of the information to criminally investigate or prosecute any alcohol or drug abuse patient.[facility] HospitalIn the event this information is protected by the Federal Confidentiality of Alcohol and Drug Abuse Patient Records regulations: The Federal rules restrict any use of the information to criminally investigate or prosecute any alcohol or drug abuse patient.[facility] HospitalIn the event this information is protected by the Federal Confidentiality of Alcohol and Drug Abuse Patient Records regulations: The Federal rules restrict any use of the information to criminally investigate or prosecute any alcohol or drug abuse patient.[facility] HospitalIn the event this information is protected by the Federal Confidentiality of Alcohol and Drug Abuse Patient Records regulations: The Federal rules restrict any use of the information to criminally investigate or prosecute any alcohol or drug abuse patient.[facility] HospitalIn the event this information is protected by the Federal Confidentiality of Alcohol and Drug Abuse Patient Records regulations: The Federal rules restrict any use of the information to criminally investigate or prosecute any alcohol or drug abuse patient.[facility] HospitalIn the event this information is protected by the Federal Confidentiality of Alcohol and Drug Abuse Patient Records regulations: The Federal rules restrict any use of the information to criminally investigate or prosecute any alcohol or drug abuse patient.[facility] the event this information is protected by the Federal Confidentiality of Alcohol and Drug Abuse Patient Records regulations: The Federal rules restrict any use of the information to criminally investigate or prosecute any alcohol or drug abuse patient.[facility] HospitalIn the event this information is protected by the Federal Confidentiality of Alcohol and Drug Abuse Patient Records regulations: The Federal rules restrict any use of the information to criminally investigate or prosecute any alcohol or drug abuse patient.[facility] HospitalIn the event this information is protected [...] or prosecute any alcohol or drug abuse patient.[facility] HospitalIn the event this information is protected by the Federal Confidentiality of Alcohol and Drug Abuse Patient Records regulations: The Federal rules restrict any use of the information to criminally investigate or prosecute any alcohol or drug abuse patient.[facility] HospitalIn the event this information is protected by the Federal Confidentiality of Alcohol and Drug Abuse Patient Records regulations: The Federal rules restrict any use of the information to criminally investigate or prosecute any alcohol or drug abuse patient.[facility] HospitalIn the event this information is protected by the Federal Confidentiality of Alcohol and Drug Abuse Patient Records regulations: The Federal rules restrict any use of the information to criminally investigate or prosecute any alcohol or drug abuse patient.[facility] HospitalIn the event this information is protected by the Federal Confidentiality of Alcohol and Drug Abuse Patient Records regulations: The Federal rules restrict any use of the information to criminally investigate or prosecute any alcohol or drug abuse patient.[facility] HospitalIn the event this information is protected by the Federal Confidentiality of Alcohol and Drug Abuse Patient Records regulations: The Federal rules restrict any use of the information to criminally investigate or prosecute any alcohol or drug abuse patient.[facility] HospitalIn the event this information is protected by the Federal Confidentiality of Alcohol and Drug Abuse Patient Records regulations: The Federal rules restrict any use of the information to criminally investigate or prosecute any alcohol or drug abuse patient.[facility] HospitalIn the event this information is protected by the Federal Confidentiality of Alcohol and Drug Abuse Patient Records regulations: The Federal rules restrict any use of the information to criminally investigate or prosecute any alcohol or drug abuse patient.[facility] HospitalIn the event this information is protected by the Federal Confidentiality of Alcohol and Drug Abuse Patient Records regulations: The Federal rules restrict any use of the information to criminally investigate or prosecute any alcohol or drug abuse patient.[facility] HospitalIn the event this information is protected by the Federal Confidentiality of Alcohol and Drug Abuse Patient Records regulations: The Federal rules restrict any use of the information to criminally investigate or prosecute any alcohol or drug abuse patient.[facility] HospitalIn the event this information is protected by the Federal Confidentiality of Alcohol and Drug Abuse Patient Records regulations: The Federal rules restrict any use of the information to criminally investigate or prosecute any alcohol or drug abuse patient.[facility] HospitalIn the event this information is protected by the Federal Confidentiality of Alcohol and Drug Abuse Patient Records regulations: The Federal rules restrict any use of the information to criminally investigate or prosecute any alcohol or drug abuse patient.[facility] HospitalIn the event this information is protected by the Federal Confidentiality of Alcohol and Drug Abuse Patient Records regulations: The Federal rules restrict any use of the information to criminally investigate or prosecute any alcohol or drug abuse patient.[facility] HospitalIn the event this information is protected by the Federal Confidentiality of Alcohol and Drug Abuse Patient Records regulations: The Federal rules restrict any use of the information to criminally investigate or prosecute any alcohol or drug abuse patient.[facility] HospitalIn the event this information is protected by the Federal Confidentiality of Alcohol and Drug Abuse Patient Records regulations: The Federal rules restrict any use of the information to criminally investigate or prosecute any alcohol or drug abuse patient.[facility] HospitalIn the event this information is protected by the Federal Confidentiality of Alcohol and Drug Abuse Patient Records regulations: The Federal rules restrict any use of the information to criminally investigate or prosecute any alcohol or drug abuse patient.[facility] HospitalIn the event this information is protected by the Federal Confidentiality of Alcohol and Drug Abuse Patient Records regulations: The Federal rules restrict any use of the information to criminally investigate or prosecute any alcohol or drug abuse patient.[facility] HospitalIn the event this information is protected by the Federal Confidentiality of Alcohol and Drug Abuse Patient Records regulations: The Federal rules restrict any use of the information to criminally investigate or prosecute any alcohol or drug abuse patient.[facility] HospitalIn the event this information is protected by the Federal Confidentiality of Alcohol and Drug Abuse Patient Records regulations: The Federal rules restrict any use of the information to criminally investigate or prosecute any alcohol or drug abuse patient.[facility] HospitalIn the event this information is protected by the Federal Confidentiality of Alcohol and Drug Abuse Patient Records regulations: The Federal rules restrict any use of the information to criminally investigate or prosecute any alcohol or drug abuse patient.[facility] HospitalIn the event this information is protected by the Federal Confidentiality of Alcohol and Drug Abuse Patient Records regulations: The Federal rules restrict any use of the information to criminally investigate or prosecute any alcohol or drug abuse patient.[facility] HospitalIn the event this information is protected by the Federal Confidentiality of Alcohol and Drug Abuse Patient Records regulations: The Federal rules restrict any use of the information to criminally investigate or prosecute any alcohol or drug abuse patient.[facility] HospitalIn the event this information is protected by the Federal Confidentiality of Alcohol and Drug Abuse Patient Records regulations: The Federal rules restrict any use of the information to criminally investigate or prosecute any alcohol or drug abuse patient.[facility] HospitalIn the event this information is protected by the Federal Confidentiality of Alcohol and Drug Abuse Patient Records regulations: The Federal rules restrict any use of the information to criminally investigate or prosecute any alcohol or drug abuse patient.[facility] HospitalIn the event this information is protected by the Federal Confidentiality of Alcohol and Drug Abuse Patient Records regulations: The Federal rules restrict any use of the information to criminally investigate or prosecute any alcohol or drug abuse patient.[facility] HospitalIn the event this information is protected by the Federal Confidentiality of Alcohol and Drug Abuse Patient Records regulations: The Federal rules restrict any use of the information to criminally investigate or prosecute any alcohol or drug abuse patient.[facility] HospitalIn the event this information is protected by the Federal Confidentiality of Alcohol and Drug Abuse Patient Records regulations: The Federal rules restrict any use of the information to criminally investigate or prosecute any alcohol or drug abuse patient.[facility] HospitalIn the event this information is protected by the Federal Confidentiality of Alcohol and Drug Abuse Patient Records regulations: The Federal rules restrict any use of the information to criminally investigate or prosecute any alcohol or drug abuse patient.[facility] HospitalIn the event this information is protected by the Federal Confidentiality of Alcohol and Drug Abuse Patient Records regulations: The Federal rules restrict any use of the information to criminally investigate or prosecute any alcohol or drug abuse patient.[facility] HospitalIn the event this information is protected by the Federal Confidentiality of Alcohol and Drug Abuse Patient Records regulations: The Federal rules restrict any use of the information to criminally investigate or prosecute any alcohol or drug abuse patient.[facility] HospitalIn the event this information is protected by the Federal Confidentiality of Alcohol and Drug Abuse Patient Records regulations: The Federal rules restrict any use of the information to criminally investigate or prosecute any alcohol or drug abuse patient.[facility] HospitalIn the event this information is protected by the Federal Confidentiality of Alcohol and Drug Abuse Patient Records regulations: The Federal rules restrict any use of the information to criminally investigate or prosecute any alcohol or drug abuse patient.[facility] HospitalIn the event this information is protected by the Federal Confidentiality of Alcohol and Drug Abuse Patient Records regulations: The Federal rules restrict any use of the information to criminally investigate or prosecute any alcohol or drug abuse patient.[facility] HospitalIn the event this information is protected by the Federal Confidentiality of Alcohol and Drug Abuse Patient Records regulations: The Federal rules restrict any use of the information to criminally investigate or prosecute any alcohol or drug abuse patient.[facility] HospitalIn the event this information is protected by the Federal Confidentiality of Alcohol and Drug Abuse Patient Records regulations: The Federal rules restrict any use of the information to criminally investigate or prosecute any alcohol or drug abuse patient.[facility] HospitalIn the event this information is protected by the Federal Confidentiality of Alcohol and Drug Abuse Patient Records regulations: The Federal rules restrict any use of the information to criminally investigate or prosecute any alcohol or drug abuse patient.[facility] HospitalIn the event this information is protected by the Federal Confidentiality of Alcohol and Drug Abuse Patient Records regulations: The Federal rules restrict any use of the information to criminally investigate or prosecute any alcohol or drug abuse patient.[facility] HospitalIn the event this information is protected by the Federal Confidentiality of Alcohol and Drug Abuse Patient Records regulations: The Federal rules restrict any use of the information to criminally investigate or prosecute any alcohol or drug abuse patient.[facility]In the event this information is protected by the Federal Confidentiality of Alcohol and Drug Abuse Patient Records regulations: The Federal rules restrict any use of the information to criminally investigate or prosecute any alcohol or drug abuse patient.[facility] HospitalIn the event this information is protected by the Federal Confidentiality of Alcohol and Drug Abuse Patient Records regulations: The Federal rules restrict any use of the information to criminally investigate or prosecute any alcohol or drug abuse patient.[facility] HospitalIn the event this information is protected by the Federal Confidentiality of Alcohol and Drug Abuse Patient Records regulations: The Federal rules restrict any use of the information to criminally investigate or prosecute any alcohol or drug abuse patient.[facility] HospitalIn the event this information is protected by the Federal Confidentiality of Alcohol and Drug Abuse Patient Records regulations: The Federal rules restrict any use of the information to criminally investigate or prosecute any alcohol or drug abuse patient.[facility] HospitalIn the event this information is protected by the Federal Confidentiality of Alcohol and Drug Abuse Patient Records regulations: The Federal rules restrict any use of the information to criminally investigate or prosecute any alcohol or drug abuse patient.[facility] HospitalIn the event this information is protected by the Federal Confidentiality of Alcohol and Drug Abuse Patient Records regulations: The Federal rules restrict any use of the information to criminally investigate or prosecute any alcohol or drug abuse patient.[facility] HospitalIn the event this information is protected by the Federal Confidentiality of Alcohol and Drug Abuse Patient Records regulations: The Federal rules restrict any use of the information to criminally investigate or prosecute any alcohol or drug abuse patient.[facility] HospitalIn the event this information is protected by the Federal Confidentiality of Alcohol and Drug Abuse Patient Records regulations: The Federal rules restrict any use of the information to criminally investigate or prosecute any alcohol or drug abuse patient.[facility] HospitalIn the event this information is protected by the Federal Confidentiality of Alcohol and Drug Abuse Patient Records regulations: The Federal rules restrict any use of the information to criminally investigate or prosecute any alcohol or drug abuse patient.[facility] the event this information is protected by the Federal Confidentiality of Alcohol and Drug Abuse Patient Records regulations: The Federal rules restrict any use of the information to criminally investigate or prosecute any alcohol or drug abuse patient.[facility] HospitalIn the event this information is protected by the Federal Confidentiality of Alcohol and Drug Abuse Patient Records regulations: The Federal rules restrict any use of the information to criminally investigate or prosecute any alcohol or drug abuse patient.[facility] HospitalIn the event this information is protected [...] or prosecute any alcohol or drug abuse patient.[facility] HospitalIn the event this information is protected by the Federal Confidentiality of Alcohol and Drug Abuse Patient Records regulations: The Federal rules restrict any use of the information to criminally investigate or prosecute any alcohol or drug abuse patient.[facility] HospitalIn the event this information is protected by the Federal Confidentiality of Alcohol and Drug Abuse Patient Records regulations: The Federal rules restrict any use of the information to criminally investigate or prosecute any alcohol or drug abuse patient.[facility] HospitalIn the event this information is protected by the Federal Confidentiality of Alcohol and Drug Abuse Patient Records regulations: The Federal rules restrict any use of the information to criminally investigate or prosecute any alcohol or drug abuse patient.[facility] HospitalIn the event this information is protected by the Federal Confidentiality of Alcohol and Drug Abuse Patient Records regulations: The Federal rules restrict any use of the information to criminally investigate or prosecute any alcohol or drug abuse patient.[facility] HospitalIn the event this information is protected by the Federal Confidentiality of Alcohol and Drug Abuse Patient Records regulations: The Federal rules restrict any use of the information to criminally investigate or prosecute any alcohol or drug abuse patient.[facility] HospitalIn the event this information is protected by the Federal Confidentiality of Alcohol and Drug Abuse Patient Records regulations: The Federal rules restrict any use of the information to criminally investigate or prosecute any alcohol or drug abuse patient.[facility] HospitalIn the event this information is protected by the Federal Confidentiality of Alcohol and Drug Abuse Patient Records regulations: The Federal rules restrict any use of the information to criminally investigate or prosecute any alcohol or drug abuse patient.[facility] HospitalIn the event this information is protected by the Federal Confidentiality of Alcohol and Drug Abuse Patient Records regulations: The Federal rules restrict any use of the information to criminally investigate or prosecute any alcohol or drug abuse patient.[facility] HospitalIn the event this information is protected by the Federal Confidentiality of Alcohol and Drug Abuse Patient Records regulations: The Federal rules restrict any use of the information to criminally investigate or prosecute any alcohol or drug abuse patient.[facility]In the event this information is protected by the Federal Confidentiality of Alcohol and Drug Abuse Patient Records regulations: The Federal rules restrict any use of the information to criminally investigate or prosecute any alcohol or drug abuse patient.[facility]In the event this information is protected by the Federal Confidentiality of Alcohol and Drug Abuse Patient Records regulations: The Federal rules restrict any use of the information to criminally investigate or prosecute any alcohol or drug abuse patient.[facility]In the event this information is protected by the Federal Confidentiality of Alcohol and Drug Abuse Patient Records regulations: The Federal rules restrict any use of the information to criminally investigate or prosecute any alcohol or drug abuse patient.[facility]In the event this information is protected by the Federal Confidentiality of Alcohol and Drug Abuse Patient Records regulations: The Federal rules restrict any use of the information to criminally investigate or prosecute any alcohol or drug abuse patient.[facility]In the event this information is protected by the Federal Confidentiality of Alcohol and Drug Abuse Patient Records regulations: The Federal rules restrict any use of the information to criminally investigate or prosecute any alcohol or drug abuse patient.[facility]In the event this information is protected by the Federal Confidentiality of Alcohol and Drug Abuse Patient Records regulations: The Federal rules restrict any use of the information to criminally investigate or prosecute any alcohol or drug abuse patient.[facility]In the event this information is protected by the Federal Confidentiality of Alcohol and Drug Abuse Patient Records regulations: The Federal rules restrict any use of the information to criminally investigate or prosecute any alcohol or drug abuse patient.[facility]In the event this information is protected by the Federal Confidentiality of Alcohol and Drug Abuse Patient Records regulations: The Federal rules restrict any use of the information to criminally investigate or prosecute any alcohol or drug abuse patient.[facility] HospitalIn the event this information is protected by the Federal Confidentiality of Alcohol and Drug Abuse Patient Records regulations: The Federal rules restrict any use of the information to criminally investigate or prosecute any alcohol or drug abuse patient.[facility]In the event this information is protected by the Federal Confidentiality of Alcohol and Drug Abuse Patient Records regulations: The Federal rules restrict any use of the information to criminally investigate or prosecute any alcohol or drug abuse patient.[facility] [facility]In the event this information is protected by the Federal Confidentiality of Alcohol and Drug Abuse Patient Records regulations: The Federal rules restrict any use of the information to criminally investigate or prosecute any alcohol or drug abuse patient.[facility]In the event this information is protected by the Federal Confidentiality of Alcohol and Drug Abuse Patient Records regulations: The Federal rules restrict any use of the information to criminally investigate or prosecute any alcohol or drug abuse patient.[facility] HospitalIn the event this information is protected by the Federal Confidentiality of Alcohol and Drug Abuse Patient Records regulations: The Federal rules restrict any use of the information to criminally investigate or prosecute any alcohol or drug abuse patient.[facility] HospitalIn the event this information is protected by the Federal Confidentiality of Alcohol and Drug Abuse Patient Records regulations: The Federal rules restrict any use of the information to criminally investigate or prosecute any alcohol or drug abuse patient.[facility] HospitalIn the event this information is protected by the Federal Confidentiality of Alcohol and Drug Abuse Patient Records regulations: The Federal rules restrict any use of the information to criminally investigate or prosecute any alcohol or drug abuse patient.[facility] HospitalIn the event this information is protected by the Federal Confidentiality of Alcohol and Drug Abuse Patient Records regulations: The Federal rules restrict any use of the information to criminally investigate or prosecute any alcohol or drug abuse patient.[facility] HospitalIn the event this information is protected by the Federal Confidentiality of Alcohol and Drug Abuse Patient Records regulations: The Federal rules restrict any use of the information to criminally investigate or prosecute any alcohol or drug abuse patient.[facility] HospitalIn the event this information is protected by the Federal Confidentiality of Alcohol and Drug Abuse Patient Records regulations: The Federal rules restrict any use of the information to criminally investigate or prosecute any alcohol or drug abuse patient.[facility] HospitalIn the event this information is protected by the Federal Confidentiality of Alcohol and Drug Abuse Patient Records regulations: The Federal rules restrict any use of the information to criminally investigate or prosecute any alcohol or drug abuse patient.[facility] HospitalIn the event this information is protected by the Federal Confidentiality of Alcohol and Drug Abuse Patient Records regulations: The Federal rules restrict any use of the information to criminally investigate or prosecute any alcohol or drug abuse patient.[facility] HospitalIn the event this information is protected by the Federal Confidentiality of Alcohol and Drug Abuse Patient Records regulations: The Federal rules restrict any use of the information to criminally investigate or prosecute any alcohol or drug abuse patient.[facility] HospitalIn the event this information is protected by the Federal Confidentiality of Alcohol and Drug Abuse Patient Records regulations: The Federal rules restrict any use of the information to criminally investigate or prosecute any alcohol or drug abuse patient.[facility] HospitalIn the event this information is protected by the Federal Confidentiality of Alcohol and Drug Abuse Patient Records regulations: The Federal rules restrict any use of the information to criminally investigate or prosecute any alcohol or drug abuse patient.[facility] HospitalIn the event this information is protected by the Federal Confidentiality of Alcohol and Drug Abuse Patient Records regulations: The Federal rules restrict any use of the information to criminally investigate or prosecute any alcohol or drug abuse patient.[facility] HospitalIn the event this information is protected by the Federal Confidentiality of Alcohol and Drug Abuse Patient Records regulations: The Federal rules restrict any use of the information to criminally investigate or prosecute any alcohol or drug abuse patient.[facility] HospitalIn the event this information is protected by the Federal Confidentiality of Alcohol and Drug Abuse Patient Records regulations: The Federal rules restrict any use of the information to criminally investigate or prosecute any alcohol or drug abuse patient.[facility] HospitalIn the event this information is protected by the Federal Confidentiality of Alcohol and Drug Abuse Patient Records regulations: The Federal rules restrict any use of the information to criminally investigate or prosecute any alcohol or drug abuse patient.[facility] HospitalIn the event this information is protected by the Federal Confidentiality of Alcohol and Drug Abuse Patient Records regulations: The Federal rules restrict any use of the information to criminally investigate or prosecute any alcohol or drug abuse patient.[facility] HospitalIn the event this information is protected by the Federal Confidentiality of Alcohol and Drug Abuse Patient Records regulations: The Federal rules restrict any use of the information to criminally investigate or prosecute any alcohol or drug abuse patient.[facility] HospitalIn the event this information is protected by the Federal Confidentiality of Alcohol and Drug Abuse Patient Records regulations: The Federal rules restrict any use of the information to criminally investigate or prosecute any alcohol or drug abuse patient.[facility] HospitalIn the event this information is protected by the Federal Confidentiality of Alcohol and Drug Abuse Patient Records regulations: The Federal rules restrict any use of the information to criminally investigate or prosecute any alcohol or drug abuse patient.[facility] HospitalIn the event this information is protected by the Federal Confidentiality of Alcohol and Drug Abuse Patient Records regulations: The Federal rules restrict any use of the information to criminally investigate or prosecute any alcohol or drug abuse patient.[facility] HospitalIn the event this information is protected by the Federal Confidentiality of Alcohol and Drug Abuse Patient Records regulations: The Federal rules restrict any use of the information to criminally investigate or prosecute any alcohol or drug abuse patient.[facility] HospitalIn the event this information is protected by the Federal Confidentiality of Alcohol and Drug Abuse Patient Records regulations: The Federal rules restrict any use of the information to criminally investigate or prosecute any alcohol or drug abuse patient.[facility] HospitalIn the event this information is protected by the Federal Confidentiality of Alcohol and Drug Abuse Patient Records regulations: The Federal rules restrict any use of the information to criminally investigate or prosecute any alcohol or drug abuse patient.[facility] HospitalIn the event this information is protected by the Federal Confidentiality of Alcohol and Drug Abuse Patient Records regulations: The Federal rules restrict any use of the information to criminally investigate or prosecute any alcohol or drug abuse patient.[facility] HospitalIn the event this information is protected by the Federal Confidentiality of Alcohol and Drug Abuse Patient Records regulations: The Federal rules restrict any use of the information to criminally investigate or prosecute any alcohol or drug abuse patient.[facility] the event this information is protected by the Federal Confidentiality of Alcohol and Drug Abuse Patient Records regulations: The Federal rules restrict any use of the information to criminally investigate or prosecute any alcohol or drug abuse patient.[facility] HospitalIn the event this information is protected by the Federal Confidentiality of Alcohol and Drug Abuse Patient Records regulations: The Federal rules restrict any use of the information to criminally investigate or prosecute any alcohol or drug abuse patient.[facility] HospitalIn the event this information is protected [...] or prosecute any alcohol or drug abuse patient.[facility] HospitalIn the event this information is protected by the Federal Confidentiality of Alcohol and Drug Abuse Patient Records regulations: The Federal rules restrict any use of the information to criminally investigate or prosecute any alcohol or drug abuse patient.[facility] HospitalIn the event this information is protected by the Federal Confidentiality of Alcohol and Drug Abuse Patient Records regulations: The Federal rules restrict any use of the information to criminally investigate or prosecute any alcohol or drug abuse patient.[facility] HospitalIn the event this information is protected by the Federal Confidentiality of Alcohol and Drug Abuse Patient Records regulations: The Federal rules restrict any use of the information to criminally investigate or prosecute any alcohol or drug abuse patient.[facility] HospitalIn the event this information is protected by the Federal Confidentiality of Alcohol and Drug Abuse Patient Records regulations: The Federal rules restrict any use of the information to criminally investigate or prosecute any alcohol or drug abuse patient.[facility] HospitalIn the event this information is protected by the Federal Confidentiality of Alcohol and Drug Abuse Patient Records regulations: The Federal rules restrict any use of the information to criminally investigate or prosecute any alcohol or drug abuse patient.[facility] HospitalIn the event this information is protected by the Federal Confidentiality of Alcohol and Drug Abuse Patient Records regulations: The Federal rules restrict any use of the information to criminally investigate or prosecute any alcohol or drug abuse patient.[facility] HospitalIn the event this information is protected by the Federal Confidentiality of Alcohol and Drug Abuse Patient Records regulations: The Federal rules restrict any use of the information to criminally investigate or prosecute any alcohol or drug abuse patient.[facility] HospitalIn the event this information is protected by the Federal Confidentiality of Alcohol and Drug Abuse Patient Records regulations: The Federal rules restrict any use of the information to criminally investigate or prosecute any alcohol or drug abuse patient.[facility] HospitalIn the event this information is protected by the Federal Confidentiality of Alcohol and Drug Abuse Patient Records regulations: The Federal rules restrict any use of the information to criminally investigate or prosecute any alcohol or drug abuse patient.[facility] HospitalIn the event this information is protected by the Federal Confidentiality of Alcohol and Drug Abuse Patient Records regulations: The Federal rules restrict any use of the information to criminally investigate or prosecute any alcohol or drug abuse patient.[facility]In the event this information is protected by the Federal Confidentiality of Alcohol and Drug Abuse Patient Records regulations: The Federal rules restrict any use of the information to criminally investigate or prosecute any alcohol or drug abuse patient.[facility] HospitalIn the event this information is protected by the Federal Confidentiality of Alcohol and Drug Abuse Patient Records regulations: The Federal rules restrict any use of the information to criminally investigate or prosecute any alcohol or drug abuse patient.[facility] HospitalIn the event this information is protected by the Federal Confidentiality of Alcohol and Drug Abuse Patient Records regulations: The Federal rules restrict any use of the information to criminally investigate or prosecute any alcohol or drug abuse patient.[facility] HospitalIn the event this information is protected by the Federal Confidentiality of Alcohol and Drug Abuse Patient Records regulations: The Federal rules restrict any use of the information to criminally investigate or prosecute any alcohol or drug abuse patient.[facility] HospitalIn the event this information is protected by the Federal Confidentiality of Alcohol and Drug Abuse Patient Records regulations: The Federal rules restrict any use of the information to criminally investigate or prosecute any alcohol or drug abuse patient.[facility] HospitalIn the event this information is protected by the Federal Confidentiality of Alcohol and Drug Abuse Patient Records regulations: The Federal rules restrict any use of the information to criminally investigate or prosecute any alcohol or drug abuse patient.[facility]In the event this information is protected by the Federal Confidentiality of Alcohol and Drug Abuse Patient Records regulations: The Federal rules restrict any use of the information to criminally investigate or prosecute any alcohol or drug abuse patient.[facility]In the event this information is protected by the Federal Confidentiality of Alcohol and Drug Abuse Patient Records regulations: The Federal rules restrict any use of the information to criminally investigate or prosecute any alcohol or drug abuse patient.[facility] HospitalIn the event this information is protected by the Federal Confidentiality of Alcohol and Drug Abuse Patient Records regulations: The Federal rules restrict any use of the information to criminally investigate or prosecute any alcohol or drug abuse patient.[facility] HospitalIn the event this information is protected by the Federal Confidentiality of Alcohol and Drug Abuse Patient Records regulations: The Federal rules restrict any use of the information to criminally investigate or prosecute any alcohol or drug abuse patient.[facility]In the event this information is protected by the Federal Confidentiality of Alcohol and Drug Abuse Patient Records regulations: The Federal rules restrict any use of the information to criminally investigate or prosecute any alcohol or drug abuse patient.[facility]In the event this information is protected by the Federal Confidentiality of Alcohol and Drug Abuse Patient Records regulations: The Federal rules restrict any use of the information to criminally investigate or prosecute any alcohol or drug abuse patient.[facility]In the event this information is protected by the Federal Confidentiality of Alcohol and Drug Abuse Patient Records regulations: The Federal rules restrict any use of the information to criminally investigate or prosecute any alcohol or drug abuse patient.[facility] HospitalIn the event this information is protected by the Federal Confidentiality of Alcohol and Drug Abuse Patient Records regulations: The Federal rules restrict any use of the information to criminally investigate or prosecute any alcohol or drug abuse patient.[facility]In the event this information is protected by the Federal Confidentiality of Alcohol and Drug Abuse Patient Records regulations: The Federal rules restrict any use of the information to criminally investigate or prosecute any alcohol or drug abuse patient.[facility]In the event this information is protected by the Federal Confidentiality of Alcohol and Drug Abuse Patient Records regulations: The Federal rules restrict any use of the information to criminally investigate or prosecute any alcohol or drug abuse patient.[facility]In the event this information is protected by the Federal Confidentiality of Alcohol and Drug Abuse Patient Records regulations: The Federal rules restrict any use of the information to criminally investigate or prosecute any alcohol or drug abuse patient.[facility]In the event this information is protected by the Federal Confidentiality of Alcohol and Drug Abuse Patient Records regulations: The Federal rules restrict any use of the information to criminally investigate or prosecute any alcohol or drug abuse patient.[facility]In the event this information is protected by the Federal Confidentiality of Alcohol and Drug Abuse Patient Records regulations: The Federal rules restrict any use of the information to criminally investigate or prosecute any alcohol or drug abuse patient.[facility]In the event this information is protected by the Federal Confidentiality of Alcohol and Drug Abuse Patient Records regulations: The Federal rules restrict any use of the information to criminally investigate or prosecute any alcohol or drug abuse patient.[facility]In the event this information is protected by the Federal Confidentiality of Alcohol and Drug Abuse Patient Records regulations: The Federal rules restrict any use of the information to criminally investigate or prosecute any alcohol or drug abuse patient.[facility]In the event this information is protected by the Federal Confidentiality of Alcohol and Drug Abuse Patient Records regulations: The Federal rules restrict any use of the information to criminally investigate or prosecute any alcohol or drug abuse patient.[facility]In the event this information is protected by the Federal Confidentiality of Alcohol and Drug Abuse Patient Records regulations: The Federal rules restrict any use of the information to criminally investigate or prosecute any alcohol or drug abuse patient.[facility]In the event this information is protected by the Federal Confidentiality of Alcohol and Drug Abuse Patient Records regulations: The Federal rules restrict any use of the information to criminally investigate or prosecute any alcohol or drug abuse patient.[facility]In the event this information is protected by the Federal Confidentiality of Alcohol and Drug Abuse Patient Records regulations: The Federal rules restrict any use of the information to criminally investigate or prosecute any alcohol or drug abuse patient.[facility]In the event this information is protected by the Federal Confidentiality of Alcohol and Drug Abuse Patient Records regulations: The Federal rules restrict any use of the information to criminally investigate or prosecute any alcohol or drug abuse patient.[facility]In the event this information is protected by the Federal Confidentiality of Alcohol and Drug Abuse Patient Records regulations: The Federal rules restrict any use of the information to criminally investigate or prosecute any alcohol or drug abuse patient.[facility]In the event this information is protected by the Federal Confidentiality of Alcohol and Drug Abuse Patient Records regulations: The Federal rules restrict any use of the information to criminally investigate or prosecute any alcohol or drug abuse patient.[facility]In the event this information is protected by the Federal Confidentiality of Alcohol and Drug Abuse Patient Records regulations: The Federal rules restrict any use of the information to criminally investigate or prosecute any alcohol or drug abuse patient.[facility]In the event this information is protected by the Federal Confidentiality of Alcohol and Drug Abuse Patient Records regulations: The Federal rules restrict any use of the information to criminally investigate or prosecute any alcohol or drug abuse patient.[facility]In the event this information is protected by the Federal Confidentiality of Alcohol and Drug Abuse Patient Records regulations: The Federal rules restrict any use of the information to criminally investigate or prosecute any alcohol or drug abuse patient.[facility]In the event this information is protected by the Federal Confidentiality of Alcohol and Drug Abuse Patient Records regulations: The Federal rules restrict any use of the information to criminally investigate or prosecute any alcohol or drug abuse patient.[facility]In the event this information is protected by the Federal Confidentiality of Alcohol and Drug Abuse Patient Records regulations: The Federal rules restrict any use of the information to criminally investigate or prosecute any alcohol or drug abuse patient.[facility]In the event this information is protected by the Federal Confidentiality of Alcohol and Drug Abuse Patient Records regulations: The Federal rules restrict any use of the information to criminally investigate or prosecute any alcohol or drug abuse patient.[facility]In the event this information is protected by the Federal Confidentiality of Alcohol and Drug Abuse Patient Records regulations: The Federal rules restrict any use of the information to criminally investigate or prosecute any alcohol or drug abuse patient.[facility] HospitalIn the event this information is protected by the Federal Confidentiality of Alcohol and Drug Abuse Patient Records regulations: The Federal rules restrict any use of the information to criminally investigate or prosecute any alcohol or drug abuse patient.[facility] the event this information is protected by the Federal Confidentiality of Alcohol and Drug Abuse Patient Records regulations: The Federal rules restrict any use of the information to criminally investigate or prosecute any alcohol or drug abuse patient.[facility]In the event this information is protected by the Federal Confidentiality of Alcohol and Drug Abuse Patient Records regulations: The Federal rules restrict any use of the information to criminally investigate or prosecute any alcohol or drug abuse patient.[facility] HospitalIn the event this information is protected [...] or prosecute any alcohol or drug abuse patient.[facility]In the event this information is protected by the Federal Confidentiality of Alcohol and Drug Abuse Patient Records regulations: The Federal rules restrict any use of the information to criminally investigate or prosecute any alcohol or drug abuse patient.[facility]In the event this information is protected by the Federal Confidentiality of Alcohol and Drug Abuse Patient Records regulations: The Federal rules restrict any use of the information to criminally investigate or prosecute any alcohol or drug abuse patient.[facility]In the event this information is protected by the Federal Confidentiality of Alcohol and Drug Abuse Patient Records regulations: The Federal rules restrict any use of the information to criminally investigate or prosecute any alcohol or drug abuse patient.[facility]In the event this information is protected by the Federal Confidentiality of Alcohol and Drug Abuse Patient Records regulations: The Federal rules restrict any use of the information to criminally investigate or prosecute any alcohol or drug abuse patient.[facility]In the event this information is protected by the Federal Confidentiality of Alcohol and Drug Abuse Patient Records regulations: The Federal rules restrict any use of the information to criminally investigate or prosecute any alcohol or drug abuse patient.[facility]In the event this information is protected by the Federal Confidentiality of Alcohol and Drug Abuse Patient Records regulations: The Federal rules restrict any use of the information to criminally investigate or prosecute any alcohol or drug abuse patient.[facility]In the event this information is protected by the Federal Confidentiality of Alcohol and Drug Abuse Patient Records regulations: The Federal rules restrict any use of the information to criminally investigate or prosecute any alcohol or drug abuse patient.[facility] HospitalIn the event this information is protected by the Federal Confidentiality of Alcohol and Drug Abuse Patient Records regulations: The Federal rules restrict any use of the information to criminally investigate or prosecute any alcohol or drug abuse patient.[facility] HospitalIn the event this information is protected by the Federal Confidentiality of Alcohol and Drug Abuse Patient Records regulations: The Federal rules restrict any use of the information to criminally investigate or prosecute any alcohol or drug abuse patient.[facility] HospitalIn the event this information is protected by the Federal Confidentiality of Alcohol and Drug Abuse Patient Records regulations: The Federal rules restrict any use of the information to criminally investigate or prosecute any alcohol or drug abuse patient.[facility] HospitalIn the event this information is protected by the Federal Confidentiality of Alcohol and Drug Abuse Patient Records regulations: The Federal rules restrict any use of the information to criminally investigate or prosecute any alcohol or drug abuse patient.[facility] HospitalIn the event this information is protected by the Federal Confidentiality of Alcohol and Drug Abuse Patient Records regulations: The Federal rules restrict any use of the information to criminally investigate or prosecute any alcohol or drug abuse patient.[facility] HospitalIn the event this information is protected by the Federal Confidentiality of Alcohol and Drug Abuse Patient Records regulations: The Federal rules restrict any use of the information to criminally investigate or prosecute any alcohol or drug abuse patient.[facility] HospitalIn the event this information is protected by the Federal Confidentiality of Alcohol and Drug Abuse Patient Records regulations: The Federal rules restrict any use of the information to criminally investigate or prosecute any alcohol or drug abuse patient.[facility] HospitalIn the event this information is protected by the Federal Confidentiality of Alcohol and Drug Abuse Patient Records regulations: The Federal rules restrict any use of the information to criminally investigate or prosecute any alcohol or drug abuse patient.[facility] HospitalIn the event this information is protected by the Federal Confidentiality of Alcohol and Drug Abuse Patient Records regulations: The Federal rules restrict any use of the information to criminally investigate or prosecute any alcohol or drug abuse patient.[facility] HospitalIn the event this information is protected by the Federal Confidentiality of Alcohol and Drug Abuse Patient Records regulations: The Federal rules restrict any use of the information to criminally investigate or prosecute any alcohol or drug abuse patient.[facility] HospitalIn the event this information is protected by the Federal Confidentiality of Alcohol and Drug Abuse Patient Records regulations: The Federal rules restrict any use of the information to criminally investigate or prosecute any alcohol or drug abuse patient.[facility] HospitalIn the event this information is protected by the Federal Confidentiality of Alcohol and Drug Abuse Patient Records regulations: The Federal rules restrict any use of the information to criminally investigate or prosecute any alcohol or drug abuse patient.[facility] HospitalIn the event this information is protected by the Federal Confidentiality of Alcohol and Drug Abuse Patient Records regulations: The Federal rules restrict any use of the information to criminally investigate or prosecute any alcohol or drug abuse patient.[facility] HospitalIn the event this information is protected by the Federal Confidentiality of Alcohol and Drug Abuse Patient Records regulations: The Federal rules restrict any use of the information to criminally investigate or prosecute any alcohol or drug abuse patient.[facility] HospitalIn the event this information is protected by the Federal Confidentiality of Alcohol and Drug Abuse Patient Records regulations: The Federal rules restrict any use of the information to criminally investigate or prosecute any alcohol or drug abuse patient.[facility] HospitalIn the event this information is protected by the Federal Confidentiality of Alcohol and Drug Abuse Patient Records regulations: The Federal rules restrict any use of the information to criminally investigate or prosecute any alcohol or drug abuse patient.[facility] HospitalIn the event this information is protected by the Federal Confidentiality of Alcohol and Drug Abuse Patient Records regulations: The Federal rules restrict any use of the information to criminally investigate or prosecute any alcohol or drug abuse patient.[facility] HospitalIn the event this information is protected by the Federal Confidentiality of Alcohol and Drug Abuse Patient Records regulations: The Federal rules restrict any use of the information to criminally investigate or prosecute any alcohol or drug abuse patient.[facility] HospitalIn the event this information is protected by the Federal Confidentiality of Alcohol and Drug Abuse Patient Records regulations: The Federal rules restrict any use of the information to criminally investigate or prosecute any alcohol or drug abuse patient.[facility] HospitalIn the event this information is protected by the Federal Confidentiality of Alcohol and Drug Abuse Patient Records regulations: The Federal rules restrict any use of the information to criminally investigate or prosecute any alcohol or drug abuse patient.[facility] HospitalIn the event this information is protected by the Federal Confidentiality of Alcohol and Drug Abuse Patient Records regulations: The Federal rules restrict any use of the information to criminally investigate or prosecute any alcohol or drug abuse patient.[facility] HospitalIn the event this information is protected by the Federal Confidentiality of Alcohol and Drug Abuse Patient Records regulations: The Federal rules restrict any use of the information to criminally investigate or prosecute any alcohol or drug abuse patient.[facility] HospitalIn the event this information is protected by the Federal Confidentiality of Alcohol and Drug Abuse Patient Records regulations: The Federal rules restrict any use of the information to criminally investigate or prosecute any alcohol or drug abuse patient.[facility] HospitalIn the event this information is protected by the Federal Confidentiality of Alcohol and Drug Abuse Patient Records regulations: The Federal rules restrict any use of the information to criminally investigate or prosecute any alcohol or drug abuse patient.[facility] HospitalIn the event this information is protected by the Federal Confidentiality of Alcohol and Drug Abuse Patient Records regulations: The Federal rules restrict any use of the information to criminally investigate or prosecute any alcohol or drug abuse patient.[facility] HospitalIn the event this information is protected by the Federal Confidentiality of Alcohol and Drug Abuse Patient Records regulations: The Federal rules restrict any use of the information to criminally investigate or prosecute any alcohol or drug abuse patient.[facility] HospitalIn the event this information is protected by the Federal Confidentiality of Alcohol and Drug Abuse Patient Records regulations: The Federal rules restrict any use of the information to criminally investigate or prosecute any alcohol or drug abuse patient.[facility] HospitalIn the event this information is protected by the Federal Confidentiality of Alcohol and Drug Abuse Patient Records regulations: The Federal rules restrict any use of the information to criminally investigate or prosecute any alcohol or drug abuse patient.[facility] HospitalIn the event this information is protected by the Federal Confidentiality of Alcohol and Drug Abuse Patient Records regulations: The Federal rules restrict any use of the information to criminally investigate or prosecute any alcohol or drug abuse patient.[facility] HospitalIn the event this information is protected by the Federal Confidentiality of Alcohol and Drug Abuse Patient Records regulations: The Federal rules restrict any use of the information to criminally investigate or prosecute any alcohol or drug abuse patient.[facility] HospitalIn the event this information is protected by the Federal Confidentiality of Alcohol and Drug Abuse Patient Records regulations: The Federal rules restrict any use of the information to criminally investigate or prosecute any alcohol or drug abuse patient.[facility] HospitalIn the event this information is protected by the Federal Confidentiality of Alcohol and Drug Abuse Patient Records regulations: The Federal rules restrict any use of the information to criminally investigate or prosecute any alcohol or drug abuse patient.[facility] HospitalIn the event this information is protected by the Federal Confidentiality of Alcohol and Drug Abuse Patient Records regulations: The Federal rules restrict any use of the information to criminally investigate or prosecute any alcohol or drug abuse patient.[facility] HospitalIn the event this information is protected by the Federal Confidentiality of Alcohol and Drug Abuse Patient Records regulations: The Federal rules restrict any use of the information to criminally investigate or prosecute any alcohol or drug abuse patient.[facility] HospitalIn the event this information is protected by the Federal Confidentiality of Alcohol and Drug Abuse Patient Records regulations: The Federal rules restrict any use of the information to criminally investigate or prosecute any alcohol or drug abuse patient.[facility] HospitalIn the event this information is protected by the Federal Confidentiality of Alcohol and Drug Abuse Patient Records regulations: The Federal rules restrict any use of the information to criminally investigate or prosecute any alcohol or drug abuse patient.[facility] HospitalIn the event this information is protected by the Federal Confidentiality of Alcohol and Drug Abuse Patient Records regulations: The Federal rules restrict any use of the information to criminally investigate or prosecute any alcohol or drug abuse patient.[facility] Care Teams (unrecognized sec tion and content) Team MemberRelationshipSpecialtyStart DateEnd Date IdaliaWojciech [address] [place] [address] PCP - General6Team MemberRelationshipSpecialtyStart DateEnd Date [facility] Wojciech Mcintyre [address] [place] [address] PCP - General6/11/24Team MemberRelationshipSpecialtyStart DateEnd Date Wojciech Treviño [address] [place] [address] PCP [facility]01/18/10Team MemberRelationshipSpecialtyStart DateEnd Date Wojciech Treviño, DO [address] [place] [address] PCP - [facility]01/18/10Team MemberRelationshipSpecialtyStart DateEnd Date Wojciech Treviño, DO [address] [place] [address] PCP [facility]01/18/10Te MemberRelationshipSpecialtyStart DateEnd Date Wojciech Treviño, DO [address] [place] [address] PCP [facility]01/18/10Te MemberRelationshipSpecialtyStart DateEnd Date Wojciech Treviño, DO [address] [place] [address] PCP - [facility]01/18/10Team MemberRelationshipSpecialtyStart DateEnd Date Wojciech Treviño, DO [address] [place] [address] PCP - [facility]01/18/10 Team Status: Active Member Role Status Dates [...] Wojciechrebecca Mcintyre, DO [address] [place] [address] PCP - General01/18/10Team MemberRelationshipSpecialtyStart DateEnd Date Furlong, Wojciech Mcintyre, DO [address] [place] [address] PCP - General01/18/10Team MemberRelationshipSpecialtyStart DateEnd Date Furlong, Wojciech Mcintyre, DO [address] [place] [address] PCP - General01/18/10Team MemberRelationshipSpecialtyStart DateEnd Date Furlong, Wojciech Quinnard, DO [address] [place] [address] PCP - General10Team MemberRelationshipSpecialtyStart DateEnd Date Furlong, Wojciech Francisco Javier, DO [address] [place] [address] PCP - General10Team MemberRelationshipSpecialtyStart DateEnd Date Furlong, Wojciech Francisco Javier, DO [address] [place] [address] PCP - General6Team MemberRelationshipSpecialtyStart DateEnd Date MaxloWojciech barnes, DO [address] [place] [address] PCP - General6/10Team MemberRelationshipSpecialtyStart DateEnd Date Wojciech Treviño, DO [address] [place] [address] PCP - General01/18/10Team MemberRelationshipSpecialtyStart DateEnd Date MaxloWojciech barnes, DO [address] [place] [address] PCP - General610Team MemberRelationshipSpecialtyStart DateEnd Date Wojciech Treviño, DO [address] [place] [address] PCP - General10Team MemberRelationshipSpecialtyStart DateEnd Date Wojciech Treviño, DO [address] [place] [address] PCP - General610Team MemberRelationshipSpecialtyStart DateEnd Date MaxloWjociech barnes, DO [address] [place] [address] PCP - General610Team MemberRelationshipSpecialtyStart DateEnd Date FurloWojciech barnes, DO [address] [place] [address] PCP - General6/10Team MemberRelationshipSpecialtyStart DateEnd Date Wojciech Treviño, DO [address] [place] [address] PCP - General6/10Team MemberRelationshipSpecialtyStart DateEnd Date Wojciech Treviño, DO [address] [place] [address] PCP - General610Team MemberRelationshipSpecialtyStart DateEnd Date Wojciech Treviño, DO [address] [place] [address] PCP - General610Team MemberRelationshipSpecialtyStart DateEnd Date Wojciech Treviño, DO [address] [place] [address] PCP - General610Team MemberRelationshipSpecialtyStart DateEnd Date Wojciech Treviño, DO [address] [place] [address] PCP - General610Team MemberRelationshipSpecialtyStart DateEnd Date Wojciech Treviño, DO [address] [place] [address] PCP - General6/10Team MemberRelationshipSpecialtyStart DateEnd Date Wojciech Treviño, DO [address] [place] [address] PCP - General6/10Team MemberRelationshipSpecialtyStart DateEnd Date Wojciech Treviño, DO [address] [place] [address] PCP - General6/10Team MemberRelationshipSpecialtyStart DateEnd Date Wojciech Treviño, DO [address] [place] [address] PCP - General6/11/24Team MemberRelationshipSpecialtyStart DateEnd Date Wojciech Treviño, DO [address] [place] [address] PCP - General6/10Team MemberRelationshipSpecialtyStart DateEnd Date Wojciech Treviño, DO [address] [place] [address] PCP - General610Team MemberRelationshipSpecialtyStart DateEnd Date Wojciech Treviño, DO [address] [place] [address] PCP - General610Team MemberRelationshipSpecialtyStart DateEnd Date Wojciech Treviño DO [address] [place] [address] PCP - General6/10Team MemberRelationshipSpecialtyStart DateEnd Date Wojciech Treviño DO [address] [place] [address] PCP - General01/18/10Team MemberRelationshipSpecialtyStart DateEnd Date Wojciech Treviño DO [address] [place] [address] PCP - General6Team MemberRelationshipSpecialtyStart DateEnd Date Wojciech Treviño DO [address] [place] [address] PCP - General01/18/10Team MemberRelationshipSpecialtyStart DateEnd Date Wojciech Treviño DO [address] [place] [address] PCP - General01/18/10Team MemberRelationshipSpecialtyStart DateEnd Date Wojciech Treviño DO [address] [place] [address] PCP - General610Team MemberRelationshipSpecialtyStart DateEnd Date Wojciech Treviño DO [address] [place] [address] PCP - General01/18/10Team MemberRelationshipSpecialtyStart DateEnd Date Wojciech Treviño DO [address] [place] [address] PCP - General6/4/10Team MemberRelationshipSpecialtyStart DateEnd Date Wojciech Treviño DO [address] [place] [address] PCP - General6/4/10Team MemberRelationshipSpecialtyStart DateEnd Date Wojciech Treviño DO [address] [place] [address] PCP - General6/4/10Team MemberRelationshipSpecialtyStart DateEnd Date Wojciech Treviño DO [address] [place] [address] PCP - General6/4/10Team MemberRelationshipSpecialtyStart DateEnd Date Wojciech Treviño DO [address] [place] [address] PCP - General6/4/10Team MemberRelationshipSpecialtyStart DateEnd Date Wojciech Treviño DO [address] [place] [address] PCP - General6/4/10Team MemberRelationshipSpecialtyStart DateEnd Date Wojciech Treviño DO [address] [place] [address] PCP - General6/4/10Team MemberRelationshipSpecialtyStart DateEnd Date Wojciech Treviño DO [address] [place] [address] PCP [facility]01/18/10Team MemberRelationshipSpecialtyStart DateEnd Date Wojciech Treviño DO [address] [place] [address] PCP - General01/27/19 Team Status: Inactive Member Role Status Dates Wojciech Treviño DO Primary Care Provider Active Start: September 21, 2023 End: September 21, 2023Hapat Conway MDAttending Provider, Referring Provider ActiveStart: September 21, 2023 End: September 21, 2023Team MemberRelationshipSpecialtyStart DateEnd Date Wojciech Treviño DO [address] [place] [address] PCP [facility]01/18/10am MemberRelationshipSpecialtyStart DateEnd Date Wojciech Treviño DO [address] [place] [address] PCP - [facility]01/18/10Team MemberRelationshipSpecialtyStart DateEnd Date Wojciech Treviño DO [address] [place] [address] PCP General01/18/10Team MemberRelationshipSpecialtyStart DateEnd Date Wojciech Treviño DO [address] [place] [address] PCP General01/18/10Te MemberRelationshipSpecialtyStart DateEnd Date Wojciech Treviño DO [address] [place] [address] PCP [facility]01/18/10Te MemberRelationshipSpecialtyStart DateEnd Date Wojciech Treviño DO [address] [place] [address] [facility]01/18/10Te MemberRelationshipSpecialtyStart DateEnd Date Wojciech Treviño DO [address] [place] [address] [facility] General01/27/19 Yuriy Conway MD [address] [facility] [address] [place] [address] Consulting PhysicianCardiology09/17/23Te MemberRelationshipSpecialtyStart Date End Date Wojciech Treviño DO [address] [place] [address] PCP General01/27/19 Yuriy Conway MD [address] [facility] [address] [place] [address] Consulting PhysicianCardiology09/17/23Team MemberRelationshipSpecialtyStart Date End Date Wojciech Treviño DO [address] [place] [address] PCP - General01/27/19 Yuriy Conway MD [address] [facility] [address] [place] [address] Consulting PhysicianCardiology09/17/23 Team Status: Inactive Member Role Status Dates Wojciech Treviño DO Primary Care Provider Active Start: November 26, 2023 End: November 26, 2023Hapat Conway MDAttending Provider, Referring Provider ActiveStart: November 26, 2023 End: November 26, 2023Team MemberRelationshipSpecialtyStart DateEnd Date Maxjason Wojciech Francisco JavierDO [address] [place] [address] PCP - General01/18/10Team MemberRelationshipSpecialtyStart DateEnd Date MaxWojciech mckeonardDO [address] [place] [address] PCP - General01/18/10Team MemberRelationshipSpecialtyStart DateEnd Date MaxWojciech mckeon DO [address] [place] [address] PCP - General01/18/10Team MemberRelationshipSpecialtyStart DateEnd Date MaxWojciech mckeon DO [address] [place] [address] PCP - General01/27/19 Yuriy Conway MD [address] [facility] [address] [place] [address] Consulting PhysicianCardiology09/17/23Team MemberRelationshipSpecialtyStart Date End Date Wojciech Treviño DO [address] [place] [address] PCP - General01/18/10Team MemberRelationshipSpecialtyStart DateEnd Date Wojciech Treviño DO [address] [place] [address] PCP - General01/18/10Team MemberRelationshipSpecialtyStart DateEnd Date Wojciech Treviño DO [address] [place] [address] PCP - General01/18/10Team MemberRelationshipSpecialtyStart DateEnd Date Wojciech Treviño DO [address] [place] [address] PCP - General01/18/10Team MemberRelationshipSpecialtyStart DateEnd Date Wojciech Treviño DO [address] [place] [address] PCP - General01/18/10Team MemberRelationshipSpecialtyStart DateEnd Date Wojciech Treviño DO [address] [place] [address] PCP - General6/4/10Team MemberRelationshipSpecialtyStart DateEnd Date Wojciech Treviño DO [address] [place] [address] PCP - General6/10Team MemberRelationshipSpecialtyStart DateEnd Date Wojciech Treviño DO [address] [place] [address] PCP - General6/10Team MemberRelationshipSpecialtyStart DateEnd Date Wojciech Treviño DO [address] [place] [address] PCP - General6/4/10Team MemberRelationshipSpecialtyStart DateEnd Date Wojciech Treviño DO [address] [place] [address] PCP - General6/10Team MemberRelationshipSpecialtyStart DateEnd Date Wojciech Treviño DO [address] [place] [address] PCP - General6/10Team MemberRelationshipSpecialtyStart DateEnd Date Wojciech Treviño DO [address] [place] [address] PCP - General6/410Team MemberRelationshipSpecialtyStart DateEnd Date Luis AlfredomollyWojciech MD [address] [place] [address] PCP - [facility]08/05/23Team MemberRelationshipSpecialtyStart Date End Date Wojciech Treviño DO [address] [place] [address] PCP - General01/18/10Team MemberRelationshipSpecialtyStart DateEnd Date Wojciech Treviño DO [address] [place] [address] PCP - [facility]02/16/24Team MemberRelationshipSpecialtyStart DateEnd Date Wojciech Treviño DO [address] [place] [address] PCP - [facility]01/18/10Team MemberRelationshipSpecialtyStart DateEnd Date Wojciech Treviño DO [address] [place] [address] PCP - General01/18/10Team MemberRelationshipSpecialtyStart DateEnd Date Wojciech Treviño DO [address] [place] [address] PCP - [facility]01/18/10Team MemberRelationshipSpecialtyStart DateEnd Date Wojciech Treviño DO [address] [place] [address] PCP - General01/27/19 Yuriy Conway MD [address] [facility] [address] [place] [address] Consulting PhysicianCardiology09/17/23Team MemberRelationshipSpecialtyStart Date End Date Wojciech Treviño DO [address] [place] [address] PCP - General01/27/19 Yuriy Conway MD [facility] [place] [address] Consulting PhysicianCardiology2Te MemberRelationshipSpecialtyStart Date End Date Wojciech Treviño DO [address] [place] [address] PCP General01/18/10Te MemberRelationshipSpecialtyStart DateEnd Date Wojciech Treviño DO [address] [place] [address] PCP - General01/27/19 Yuriy Conway MD [facility] [place] [address] Consulting PhysicianCardiologyTe MemberRelationshipSpecialtyStart Date End Date Wojciech Treviño DO [address] [place] [address] PCP - General01/27/19 Yuriy Conway MD [address] [facility] [address] [place] [address], [place] [address] Consulting PhysicianCardiology09/17/23Team MemberRelationshipSpecialtyStart Date End Date Wojciech Treviño MD [address] [place] [address] PCP - GeneralFamily Kyxchlki28/20/23Team MemberRelationshipSpecialtyStart Date End Date Wojciech Treviño MD [address] [place] [address] PCP - GeneralFamily Kpoqznpw99/20/23Team MemberRelationshipSpecialtyStart Date End Date Wojciech Treviño MD [address] [place] [address] PCP - GeneralFamily Mrnwfbgs24/20/23Team MemberRelationshipSpecialtyStart Date End Date Wojciech Treviño MD [address] [place] [address] PCP - GeneralFamily Pvtzvumw60/20/23Team MemberRelationshipSpecialtyStart Date End Date Wojciech Treviño MD [address] [place] [address] PCP - GeneralFamily Btrcbgcp27/20/23Team MemberRelationshipSpecialtyStart Date End Date Wojciech Treviño DO PCP - General01/27/19 Yuriy Conway MD [address] [facility] [address] [place] [address] Consulting PhysicianCardiology09/17/23Team MemberRelationshipSpecialtyStart Date End Date Wojciech Treviño DO [address] [place] [address] PCP - General01/18/10Team MemberRelationshipSpecialtyStart DateEnd Date Wojciech Treviño DO [address] [place] [address] PCP - General01/18/10Team MemberRelationshipSpecialtyStart DateEnd Date Wojciech Treviño DO [address] [place] [address] PCP - General01/18/10 Team Status: Inactive Member [...] DO [address] [place] [address] PCP - General01/27/19 Yuriy Conway MD [address] [facility] 2, [address] [place] [address] Consulting PhysicianCardiology09/17/23 Team Status: Inactive Member Role Status Dates Wojciech Treviño DO Primary Care Provider Active Start: September 15, 2024 End: September 15, 2024HaChristiano Augustin ProviderActiveStart: September 15, 2024 End: September 15, 2024Team MemberRelationshipSpecialtyStart DateEnd Date Wojciech Treviño DO [address] [facility] [address] PCP - GeneralMad[facility] Care Systemly Medicine02/16/24 Team Status: Inactive Member Role Status Dates Wojciech Treviño DO Primary Care Provider Active Start: September 19, 2024 End: September 19, 2024HaChristiano Augustin ProviderActiveStart: September 19, 2024 End: September 19, 2024Team MemberRelationshipSpecialtyStart DateEnd Date Cha Staley, PIPE PROCESSOR-VEGETABLE SORTER [address] [place] [address] PCP - GeneralInternal Medicine04/15/23Team MemberRelationshipSpecialtyStart Date End Date Cha Staley, PIPE PROCESSOR-VEGETABLE SORTER [address] [place] [address] PCP - GeneralInternal Medicine04/15/23Team MemberRelationshipSpecialtyStart Date End Date Cha Staley PIPE PROCESSOR-VEGETABLE SORTER [address] [place] [address] PCP - GeneralInternal Medicine04/15/23Team MemberRelationshipSpecialtyStart Date End Date Cha Staley, PIPE PROCESSOR-[facility] [address] [facility] [place] [address] PCP - GeneralInternal Medicine04/15/23Team MemberRelationshipSpecialtyStart Date End Date Wojciech Treviño DO [address] [place] [address] PCP - Generalmily Medicine02/16/24Team MemberRelationshipSpecialtyStart DateEnd Date Wojciech Treviño DO [address], [place] [address] PCP - Generalmily Medicine02/16/24Team MemberRelationshipSpecialtyStart DateEnd Date Wojciech Treviño DO [address], [place] [address] PCP - GeneralFamily Medicine02/16/24Team MemberRelationshipSpecialtyStart DateEnd Date Wojciech Treviño DO [address], [place] [address] PCP - Generalmily Medicine02/16/24Team MemberRelationshipSpecialtyStart DateEnd Date Wojciech Treviño DO [address], [place] [address] PCP - GeneralFamily Medicine02/16/24Team MemberRelationshipSpecialtyStart DateEnd Date Wojciech Treviño DO [address], [place] [address] PCP - [facility]02/16/24Team MemberRelationshipSpecialtyStart DateEnd Date Wojciech Treviño DO [address], [place] [address] PCP - [facility]02/16/24Team MemberRelationshipSpecialtyStart DateEnd Date Wojciech Treviño DO [address], [place] [address] PCP - [facility]02/16/24Team MemberRelationshipSpecialtyStart DateEnd Date Wojciech Treviño DO [address], [place] [address] PCP - [facility]02/16/24Team MemberRelationshipSpecialtyStart DateEnd Date Wojciech Treviño DO [address], [place] [address] PCP - [facility]02/16/24Team MemberRelationshipSpecialtyStart DateEnd Date Wojciech Treviño DO [address], [place] [address] PCP - [facility]02/16/24Team MemberRelationshipSpecialtyStart DateEnd Date Wojciech Treviño DO [address] [place] [address] PCP - General01/18/10Team MemberRelationshipSpecialtyStart DateEnd Date Wojciech Treviño DO [address] [place] [address] PCP - General01/18/10Team MemberRelationshipSpecialtyStart DateEnd Date Wojciech Treviño DO [address] [place] [address] PCP - General01/18/10Team MemberRelationshipSpecialtyStart DateEnd Date Wojciech Treviño DO [address] [place] [address] PCP - General01/18/10Team MemberRelationshipSpecialtyStart DateEnd Date Wojciech Treviño DO [address] [place] [address] [facility] - [facility]02/16/24Team MemberRelationshipSpecialtyStart DateEnd Date Wojciech Treviño DO [address] [place] [address] PCP - General01/18/10Team MemberRelationshipSpecialtyStart DateEnd Date Wojciech Treviño DO [address] [place] [address] PCP - General01/18/10Team MemberRelationshipSpecialtyStart DateEnd Date Wojciech Treviño DO [address] [place] [address] PCP - General01/27/19 Yuriy Conway MD [address] [facility] 2, [address] [place] [address] Consulting PhysicianCardiology09/17/23Team MemberRelationshipSpecialtyStart Date End Date Wojciech Treviño DO [address] [place] [address] PCP - General01/18/10Team MemberRelationshipSpecialtyStart DateEnd Date Wojciech Treviño DO [address] [place] [address] PCP - General01/18/10Team MemberRelationshipSpecialtyStart DateEnd Date Wojciech Treviño Francisco JavierDO walter [address] [place] [address] PCP - General01/18/10Team MemberRelationshipSpecialtyStart DateEnd Date Wojciech Treviño DO Taz [address] [place] [address] PCP - Generalmily [facility]02/16/24Team MemberRelationshipSpecialtyStart DateEnd Date Luis AlfredoWojciech barnes DO [address] [place] [address] PCP - General01/18/10Team MemberRelationshipSpecialtyStart DateEnd Date Wojciech Treviño DO [address] [place] [address] PCP - General01/18/10Team MemberRelationshipSpecialtyStart DateEnd Date Wojciech Treviño DO [address] [place] [address] PCP - General01/18/10Team MemberRelationshipSpecialtyStart DateEnd Date Wojciech Treviño DO [address] [place] [address] PCP - General01/18/10Team MemberRelationshipSpecialtyStart DateEnd Date Luis AlfredomollyWojciech MD PCP - GeneralFamily Cmfdpxse72/20/23Team MemberRelationshipSpecialtyStart Date End Date Wojciech Treviño DO [address] [place] [address] PCP - General01/18/10Team MemberRelationshipSpecialtyStart DateEnd Date Wojciech Treviño DO [address] [place] [address] PCP - General6/4/10Team MemberRelationshipSpecialtyStart DateEnd Date Wojciech Treviño DO [address] [place] [address] PCP - General6/4/10Team MemberRelationshipSpecialtyStart DateEnd Date Wojciech Treviño DO [address] [place] [address] PCP - General6//10Team MemberRelationshipSpecialtyStart DateEnd Date Wojciech Treviño DO [address] [place] [address] PCP - General6/4/10Team MemberRelationshipSpecialtyStart DateEnd Date Wojciech Treviño DO [address] [place] [address] PCP - General6/4/10Team MemberRelationshipSpecialtyStart DateEnd Date Wojciech Treviño DO [address] [place] [address] PCP - General6/4/10Team MemberRelationshipSpecialtyStart DateEnd Date Wojciech Treviño DO [address] [place] [address] PCP - General6/4/10Team MemberRelationshipSpecialtyStart DateEnd Date Wojciech Treviño DO [address] [place] [address] PCP - General01/18/10Team MemberRelationshipSpecialtyStart DateEnd Date Wojciech Treviño DO [address] [place] [address] PCP - General01/18/10Team MemberRelationshipSpecialtyStart DateEnd Date Wojciech Treviño DO [address] [place] [address] PCP - General01/18/10Team MemberRelationshipSpecialtyStart DateEnd Date Wojciech Treviño DO [address] [place] [address] PCP - General01/18/10Team MemberRelationshipSpecialtyStart DateEnd Date Wojciech Treviño DO [address] [place] [address] PCP - General01/18/10Team MemberRelationshipSpecialtyStart DateEnd Date Wojciech Treviño DO [address] [place] [address] [facility] - [facility] 02/16/24Team MemberRelationshipSpecialtyStart DateEnd Date Wojciech Treviño DO [address] [place] [address] PCP - GeneralFamily Medicine02/16/24 Reason for Visit (unrecogniz ed section and content) ReasonCommentsInfusionSpecialtyDiagnoses / ProceduresReferred By ContactReferred To Contact Diagnoses Systemic lupus erythematosus, unspecified SLE type, unspecified organ involvement status ([facility]) Evelin Abel MD [address] [place] [address] Rheu Infusion Main [address] [place] [address] Referral IDStatusReasonStart DateExpiration DateVisits RequestedVisits [id number]/6/20248/[id number]ly Diagnoses / ProceduresReferred By ContactReferred To ContactRHEUMATOLOGY INFUSION Diagnoses Systemic lupus erythematosus, unspecified M32.9 (ICD-10-CM) - Systemic lupus erythematosus, unspecified Procedures BELIMUMAB INJECTION THER/PROPH/DIAG IV INF, INIT THER/PROPH/DIAG IV INF ADDON IV BENLYSTA J0490 Evelin Abel MD [address] [place] [address] [facility] Main [address] [place] [address] Referral IDStatusReasonStart DateExpiration DateVisits RequestedVisits [id number]/17/202012/[id number] DateComments Refill Fdlgsro76/10/2022ReasonCommentsResultsReasonCommentsRefill RequestReason CommentsResultsOrdersReasonCommentsOrdersEvusheldReasonCommentsRadiology BMD ReasonCommentsOsteopeniaReasonOnset DateCommentsRefill Kqoempr37/20/2022Reason CommentsOsteopeniaReasonOnset DateCommentsRefill Ooixmvp56/28/2022ReasonComments Surgical FollowupReasonCommentsNew PatientElevated calciumSpecialtyDiagnoses / ProceduresReferred By ContactReferred To ContactEndocrinology Diagnoses Hypercalcemia Hyperparathyroid (HCC) Procedures CONSULT TO ENDOCRINOLOGY OFFICE/OUTPATIENT [facility] 60-74 MINUTES Obdulia Peña PA-C [address] [place] [address] Referral IDStatusReasonStart DateExpiration DateVisits RequestedVisits [id number] PCP Requested Referral [id number]a SheetReasonCommentsRadiology [place] SpecialtyDiagnoses / ProceduresReferred By ContactReferred To ContactMOLECULAR & FUNCTIONAL IMAGING Diagnoses Hyperparathyroidism (HCC) Procedures NM PARATHYROID W SPECT/CT PARATHYROID IMAGING W/TOMOGRAPHIC SPECT & CT Monica Booker MD [address] [place] [address] Molecular & Functional Imaging [address] [place] [address] Referral IDStatusReasonStart DateExpiration DateVisits RequestedVisits [id number] Auto-Generated Referral [id number] NMSpecialtyDiagnoses / Procedures Referred By ContactReferred To ContactMOLECULAR & FUNCTIONAL IMAGING Diagnoses Hyperparathyroidism (HCC) Procedures NM PARATHYROID W SPECT/CT PARATHYROID IMAGING W/TOMOGRAPHIC SPECT & CT Monica Booker MD [address] [place] [address] Molecular & Functional Imaging [address] [place] [address] ReasonCommentsThyroid ProblemSpecialtyDiagnoses / ProceduresReferred By Contact Referred To Contact Diagnoses Hypercalcemia Hyperparathyroid (HCC) Procedures CONSULT TO ENDOCRINE SURGERY OFFICE/OUTPATIENT [facility] 60-74 MINUTES Lemuel Bejarano V, MD [address] [place] [address] Referral IDStatusReasonStart DateExpiration DateVisits RequestedVisits [id number] PCP Requested Referral [id number] ConsultHyperparathyroidismReason CommentsOrdersReasonCommentsCare Coordinator - OtherReasonCommentsPatient Update ReasonCommentsPreparations [...] ADDON IV BENLYSTA J0490 Evelin Abel MD [facility] [place] [address] Rheu Infusion Main A[address] [place] [address] ReasonOnset DateCommentsRefill Cgdwwgt0409/21/2022LialdaReasonOnset DateComments Refill Ksujqrp1610/28/2022ReasonOnset DateCommentsRefill Kgcnjae3511/24/2022iron ReasonOnset DateCommentsRefill Elzueiz9701/13/2023olestipolReasonCommentsCallous Preulcerative calluses right 1 plantar and 2+3ReasonOnset DateCommentsRefill RequestFollow Up02/09/2023ReasonCommentsUlcerRight second ulcerReasonComments ResultslabsReasonCommentsAppointmentReasonCommentsUlcerRight 1stReasonComments ResultsColonReasonCommentsUlcerative ColitisReasonCommentsMedication Question ReasonCommentsFoot Pain (Midfoot)leftReasonCommentsAnnual ExamSpecialtyDiagnoses / ProceduresReferred By ContactReferred To Contact Diagnoses Paroxysmal atrial fibrillation (CMS/HCC) Procedures ECG 12 Lead Yuriy Conway MD [address] [facility] 2, [address] [place] [address] Referral IDStatusReasonStart DateExpiration DateVisits RequestedVisits [id number]/1/20241/31/[id number]ZuntrtMmcozjah CallousBilateral footSpecialtyDiagnoses / ProceduresReferred By ContactReferred To ContactMR IMAGING Diagnoses Pancreatic cyst Procedures MRI PANC/JEANIE WO/W IVCON MRI ABDOMEN W/O & W/CONTRAST MATERIAL Rima Mcallister, ANTONIO.JEWELRY MAKER [address] [facility] [place] [id number] [place] [address] Referral IDStatusReasonStart DateExpiration DateVisits RequestedVisits [id number] Auto-Generated Referral /[id number]-lwXEBLvfljowceFodcavvxv / Procedures Referred By ContactReferred To ContactCardiology Diagnoses Paroxysmal atrial fibrillation (CMS/HCC) Procedures Follow Up In Cardiology Yuriy Conway MD [address] [facility] 2, [address] [place], [place] [id number] Yuriy Conway MD [address] [facility] 2, [address] [place], [place] [address] Referral IDStatusReasonStart DateExpiration DateVisits RequestedVisits [id number]/1/20241/31/[id number] VisitSpecialty Diagnoses / ProceduresReferred By ContactReferred To Contact Diagnoses Paroxysmal atrial fibrillation (CMS/HCC) Procedures ECG 12 Lead Yuriy Conway MD [address], [address] [place] [address] Referral IDStatusReasonStart DateExpiration DateVisits RequestedVisits [id number]/14/20243/14/373896CusfamMyigxkhaGzpxnn Fibrillation Atrial FlutterSpecialtyDiagnoses / ProceduresReferred By ContactReferred To ContactCardiology Diagnoses Paroxysmal atrial fibrillation ([facility]/HCC) Yuriy Conway MD [address] [facility] 2, [facility] [address] [place] [address] [place] [address] [place] [address] Referral IDStatusReasonStart DateExpiration DateVisits RequestedVisits [id number] Specialty Services Required [id number] Pain (Midfoot)Bilateral foot painReason Onset DateCommentsRefill Bcpzhdk22/30/2024ReasonCommentsUlcerative Colitis SpecialtyDiagnoses / ProceduresReferred By ContactReferred To Contact Diagnoses Systemic lupus erythematosus, unspecified SLE type, unspecified organ involvement status ([facility]) Evelin Abel MD [address] [place] [address] Rheu [facility] Main A[address] [place] [address] ReasonCommentsNew PatientReasonOnset DateCommentsRefill Scnzduq19/14/2024Reason CommentsRefill RequestprotonixReasonOnset DateCommentsRefill Fwamrrc4303/04/2024 ReasonCommentsRadio Gen I09FcauflrvwAqeycfbad / ProceduresReferred By Contact Referred To ContactXR IMAGING Diagnoses Osteopenia of multiple sites S/P parathyroidectomy alf (current) use of 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 Acute pain of left knee Procedures XR KNEE GENERAL 4V AP BOTH/PA BOTH/LAT/MERC LEFT RADIOLOGIC EXAM KNEE COMPLETE 4/MORE VIEWS Obdulia Ann PA-C [address] [place] [address] [facility] [place] [address] Referral IDStatusReasonStart DateExpiration DateVisits RequestedVisits [id number] Auto-Generated Referral /[id number] USSpecialtyDiagnoses / Procedures Referred By ContactReferred To ContactUS IMAGING Diagnoses Membranous glomerulonephritis Procedures US KIDNEY/BLADDER US RETROPERITONEAL REAL TIME W/IMAGE COMPLETE Radu Salazar MD [address] [place] [address] [facility] [place] [address] Referral IDStatusReasonStart DateExpiration DateVisits RequestedVisits [id number] Auto-Generated Referral /[id number] / ProceduresReferred By ContactReferred To Contact Diagnoses Systemic lupus erythematosus, unspecified SLE type, unspecified organ involvement status (HCC) Procedures BELIMUMAB INJECTION Evelin Abel MD [address] [place] [address] Rheu Infusion Main [address] [place] [address] Referral IDStatusReasonStart DateExpiration DateVisits RequestedVisits [id number]/6/202412/[id number] XR ReasonCommentsNewReasonCommentsRadiology XRSpecialtyDiagnoses / Procedures Referred By ContactReferred To ContactXR IMAGING Diagnoses Left knee pain, unspecified chronicity Procedures XR KNEE SPECIFY 1V LEFT RADIOLOGIC EXAMINATION KNEE 1/2 VIEWS Alfredo Norwood PA-C [address] [place] [address] Xr [facility] [place] [address] Referral IDStatusReasonStart DateExpiration DateVisits RequestedVisits [id number] Auto-Generated Referral /[id number] DateCommentsre: PT4Contacted re: last PT she wanted to fu w/ Dr. Childress before continuing on. She stated per Fior no recommendation of anymore PT at this time; sx is needed due to cmcp-xv-kffp. ReasonCommentsMed RefillReasonCommentsRefill RequestPantoprazole 40mgReason CommentsAtrial FibrillationSpecialtyDiagnoses / ProceduresReferred By Contact Referred To Contact Diagnoses Paroxysmal atrial fibrillation (Multi) Procedures ECG 12 lead (Clinic Performed) Christian Kaur, PIPE PROCESSOR-JEWELRY MAKER [address] [place] [address] Referral IDStatusReasonStart DateExpiration DateVisits RequestedVisits [id number]/1/20247/109519DqavdeBfornojnUjazjh-yjGhwxiz FibrillationReferral IDStatusReasonStart DateExpiration DateVisits Requested Visits [id number]/30/20249/971151WoowbsxcqRfknkvmwn / ProceduresReferred By ContactReferred To ContactPhysical Therapy Diagnoses Unilateral primary osteoarthritis, left knee Procedures [place] PHYSICAL THERAPY EVALUATION LOW COMPLEX 20 MINS Wojciech Treviño MD [address] [facility] [place] [address] Kimmy Cerda, PT Referral IDStatusReasonStart DateExpiration DateVisits RequestedVisits [id number]/20/20242/[id number] DateCommentsre: PT's this week05/16/2024Shestela had called and [...] Follow Up In Cardiology Yuriy Conway MD [facility], [address] [address] Phone: tel: fax: Yuriy Conway MD [address] [facility] 2, [address] [place] [address] Phone: tel: fax: Referral IDStatusReasonStart DateExpiration DateVisits RequestedVisits [id number] Review/997028AuupjpLnspojdrHsipbunmzoh Ortho appt cancel/rescheduleReasonCommentsCoughCold,congestion over a weekReason CommentsMAWReasonOnset DateCommentsMed Loevsh054ReasonOnset DateComments Med Ubqfhz644ReasonCommentsFollow-upReasonOnset DateCommentsResults 0237SjxxjhJgpnjkukCllusk-tv5-2 weekReasonOnset DateCommentsMed Refill 4ReasonOnset DateCommentsMed Trmvca434ReasonCommentsFollow-up Left armReasonCommentsCoughSore throat and ear ache-07/09Sore ThroatReasonOnset DateCommentsMed Mmiavw0207/18/2024SpecialtyDiagnoses / ProceduresReferred By ContactReferred To Contact Diagnoses Systemic lupus erythematosus, unspecified SLE type, unspecified organ involvement status (HCC) Procedures BELIMUMAB INJECTION Evelin Abel MD [address] [place] [address] Phone: tel: fax: Rheumatology [address] [address] Phone: tel: ReasonCommentsdiscuss 6 min walkPer cardialogistReasonCommentsFollow UpReason Commentsknee injectionsleftReasonOnset DateCommentsRefill Lzheljr4011/30/2024 ReasonCommentsFollow-up4 month, paroxysmal atrial fibrillationSpecialtyDiagnoses / ProceduresReferred By ContactReferred To ContactCardiology Diagnoses Chronic diastolic heart failure Procedures Follow Up In Cardiology Yuriy Conway MD [address] [facility] [address], [address] [place] [address] Phone: tel: fax: Yuriy Conway MD [facility] [facility] [address], [address] [place] [address] Phone: tel: fax: Referral IDStatusReasonStart DateExpiration DateVisits RequestedVisits [id number]/20/202412/20/327158RgjbhhVaxvjgdzVwut Swelling ReasonCommentsFoot SwellingAnd painReasonCommentsAppointmentXrayReasonComments Ankle PainRightSwellingRight foot and ankleFoot Pain (Midfoot)Dorsal midfoot SpecialtyDiagnoses / ProceduresReferred By ContactReferred To ContactXR IMAGING Diagnoses Pain in right foot Procedures XR FOOT GENERAL 3V AP/LAT/OBL RIGHT RADEX FOOT COMPLETE MINIMUM 3 VIEWS Beverly Franco, [facility] [address] [place] [address] Phone: tel: fax: [place] [address] Referral IDStatusReasonStprovidence DateExpiration DateVisits RequestedVisits [id number] Auto-Generated Referral /[id number] of BreathReasonCommentsFollow-up6 monthReasonCommentsnose bleedsStarted last year October [...] COMPLETE MINIMUM 3 VIEWS Beverly Franco, KHADIJAH [address] [place] [address] Phone: tel: fax: [facility] [address] Referral IDStatusReasonStart DateExpiration DateVisits RequestedVisits [id number] Auto-Generated Referral /[id number] UpLast nose bleeds noted Thursday night and yesterday morning lasting approx 20-30 min large clot notedin her throat later after the nose bleed Head ache before it startedReasonCommentsFollow-upPatient here for POC Dr Hall, right foot surgery not yet scheduled.SpecialtyDiagnoses / ProceduresReferred By ContactReferred To Contact Diagnoses Pre-operative clearance Procedures ECG 12 Lead Abisai Barraza, PIPE PROCESSOR-JEWELRY MAKER [facility] [facility] 2, [address] [place] [address] Phone: tel: fax: Referral IDStatusReasonStart DateExpiration DateVisits RequestedVisits [id number]/13/20256/709800DruyfyVilrq DateCommentsre: PT 01/30/2025ReasonCommentsPT EvalPT DischargeSpecialtyDiagnoses / Procedures Referred By ContactReferred To ContactREHAB AND SPORTS THERAPY INS Diagnoses Closed fracture of left foot, initial encounter Procedures CONSULT TO PHYSICAL THERAPY PHYSICAL THERAPY EVALUATION HIGH COM[place]X [address] [place] [address] [place] [address] Phone: tel: fax: [facility] [address] [place] [address] Referral IDStatusReasonStprovidence DateExpiration DateVisits RequestedVisits [id number] PCP Requested Referral Auto-Generated Referral /[id number]v PatientCT RESULTSReasonComments Surgical Follow UpReasonOnset DateCommentsRefill Cmnaqhz9902/21/2025ReasonComments Preparations For SurgeryEliquis instructionsReasonCommentsPreparations For SurgeryPACCReasonCommentsPre-Op VisitReasonCommentsProcedureInfusionReason CommentsReceived Outside Medical RecordsReasonCommentsPost OpReasonComments Diarrhea, stomach crampingReasonOnset DateCommentsMed Aoyrca7905/17/2025 Goals (unrecognized section and content) Goals may [...] Volume: 250 mL Protect From Light New Bag/Syringe/Tsgyev1010/01/2023 10:17 AM EST1,000 mg125 mL/hr methylPREDNISolone sod [...] BE BASED ON THE PRIMARY CLINICAL RECORDS. [employer] [facility]. provides no warranty or guarantee of the accuracy or completeness of information in this document.
--- NOTE | 2025-07-25 13:14 | PM.IMHP1 ---
Internal Medicine - H&P: HPI History of Present Illness Chief complaint: SOB, CHF EXACERBATION, HYPOMAGNESEMIA Narrative: This is a 70 y.o female with past medical Hx of hypertension, diastolic CHF, atrial fibrillation with watchman device, on chronic anticoagulation for recurrent DVTs, HTN, dyslipidemia, morbid obesity, here for shortness of breath that started 2 days ago. History obtained with the patient, patient's family members at bedside, chart review, and ED staff. Patient states that 2 days ago she started having shortness of breath however over the last night she woke up having severe difficulty catching her breath. Denies any chest pain or nausea or vomiting. Denies any fever chills or cough. She is not able to keep track of her weight. Denies any worsening leg swelling however her legs are swollen, denies any orthopnea or PND. In the ED, patient is hypertensive saturating 93% on room air. CBC was not remarkable. INR is 1. CMP showed magnesium of 1.5, BUN and creatinine were normal. proBNP was 1914. Troponin x 2 was negative chest x-ray did show signs of fluid overload. EKG showed sinus rhythm with no ischemic changes. Patient received 1 dose of IV Lasix 40 mg, 1 dose of DuoNebs 3 mL. And 1 dose of nitroglycerin sublingual 0.4 mg once. Patient to be admitted under hospital service for further workup and management. Patient follows with Dr. Johns, automotive title clerk. She had a PHYLLIS on 09/19/2024 that showed EF of 55-60%, Mild concentric LVH, LV diastolic dysfunction. Left atrial occlusive device was in place. Moderate Pulmonary HTN, mild aortic root dilatation at 4.4 cm. Mild aortic regurgitation. Mild Mitral and tricuspid regurgitation. No pericardial effusion at the time. Review of Systems ROS Status of ROS 10 or more systems reviewed and unremarkable except as noted in history and below [facility] Social History Smoking status: Never smoker Highest level of school completed/degree received: high school graduate Little interest or pleasure in doing things: not at all Feeling down, depressed, or hopeless: not at all Meds Home Medications and Allergies Home Medications ?Medication ?Instructions ?Recorded ?Confirmed ?Type alendronate 70 mg tablet 70 mg PO .weekly 07/27/23 07/25/25 History apixaban 5 mg tablet (Eliquis) 5 mg PO Q12H 07/27/23 07/25/25 History atorvastatin 40 mg tablet 40 mg PO QDAY 07/27/23 07/25/25 History celecoxib 200 mg capsule 200 mg PO Q24H 07/27/23 07/25/25 History cholecalciferol (vitamin D3) 50 50 mcg PO DAILY 07/27/23 07/25/25 History mcg (2,000 unit) tablet (D3 DOTS) colestipol 1 gram tablet 2 g PO BID 07/27/23 07/25/25 History ferrous sulfate 325 mg (65 mg 325 mg PO QDAY 07/27/23 07/25/25 History iron) tablet (FeroSul) furosemide 20 mg tablet 20 mg PO QDAY 07/27/23 07/25/25 History hydroxychloroquine 200 mg tablet 200 mg PO BID 07/27/23 07/25/25 History metoprolol succinate 50 mg 200 mg PO DAILY 07/27/23 07/25/25 History tablet,extended release 24 hr pantoprazole 40 mg tablet,delayed 40 mg PO Q12H 07/27/23 07/25/25 History release spironolactone 50 mg tablet 50 mg PO DAILY 07/27/23 07/25/25 History venlafaxine 150 mg 150 mg PO DAILY 07/27/23 07/25/25 History capsule,extended release 24 hr (Effexor XR) Bacillus coagulans 500 million 1 tab PO DAILY 07/25/25 07/25/25 History cell-inulin 1.25 gram chewable tablet (Align Dualbiotic) amoxicillin 500 mg capsule 500 mg PO Q12H 07/25/25 07/25/25 History metoprolol tartrate 25 mg tablet 25 mg PO DAILY 07/25/25 07/25/25 History Allergies Allergy/AdvReac Type Severity Reaction Status Date / Time Iodinated Contrast Media Allergy Unknown Unknown Verified 07/25/25 09:23 codeine AdvReac Intermediate Unknown Verified 07/25/25 09:23 diphtheria,pertussis AdvReac Intermediate Unknown Verified 07/25/25 09:23 (acellular),te (From Boostrix Tdap) prochlorperazine (From AdvReac Intermediate ubknown Verified 07/25/25 09:23 Compazine) Sulfa (Sulfonamide AdvReac Intermediate Unknown Verified 07/25/25 09:23 Antibiotics) Exam Narrative Exam Narrative: General: Well-appearing and in no apparent distress. Very pleasant and cooperative. Ill-appearing but not in acute Skin: Warm, dry, no pallor noted. No rash. Head: Normocephalic, atraumatic. Neck: Supple, non-tender, no JVD no lymphadenopathy no thyromegaly Cardiovascular: Regular Rate and Rhythm without murmur, gallop or rub. Respiratory: No accessory muscle use or respiratory distress. Does have bilateral wheezes and crackles, decreased bilateral air entry. But the patient get tachypneic when talking Back: No midline thoracic or lumbar vertebral tenderness. No CVA tenderness Musculoskeletal: normal ROM, no calf or popliteal tenderness, healing wound on the medial aspect of the right ankle, Bilateral 1+ pitting edema GI: Abdomen is soft, non-distended. Normal bowel sounds. No masses appreciated. No tenderness to palpation. No rebound, guarding, or rigidity noted. Neurological: A&O x4. No cranial nerve dysfunction observed. No truncal ataxia. Moves all extremities. Sensation intact. Constitutional Vital Signs, click to edit/add: Last Vital Signs Temp 97.8 F 07/25/25 12:40 Pulse 80 07/25/25 12:40 Resp 20 07/25/25 12:40 BP 167/109 H 07/25/25 12:40 Pulse Ox 93 L 07/25/25 12:40 O2 Del Method Room Air 07/25/25 12:40 Internal Medicine - H&P: Reslt Labs Labs: Short CBC 07/25/25 Range/Units 09:10 WBC 7.5 (4.0-11.0) 10^3/uL Hgb 13.1 (12.0-16.0) g/dL Hct 39.0 (36.0-48.0) % Plt Count 194 (150-450) 10^3/uL BMP 07/25/25 09:10 Sodium 144 Potassium 3.9 Chloride 108 H Carbon Dioxide 28.1 BUN 13.0 Creatinine 0.83 Glucose 92 Calcium 8.7 Liver Function 07/25/25 Range/Units 09:10 Total Bilirubin 1.0 (0.2-1.0) mg/dL AST 17 (15-37) U/L ALT 36 (14-59) U/L Alkaline Phosphatase 117 H (46-116) U/L Albumin 3.1 L (3.4-5.0) g/dL Assessment and Plan Assessment and Plan (1) CHF exacerbation: (2) Debility: Plan Acute diastolic CHF exacerbation, NYHA class III, stage C History of atrial fibrillation and recurrent DVT Debility and frailty Hypomagnesemia - Admit patient to medical floor with telemetry - Start IV Lasix 40 mg twice daily - Continue with the patient's metoprolol succinate 200 mg p.o. daily and spironolactone 50 mg p.o. daily - For better BP control and may start ARB, losartan 25 mg p.o. daily - Daily weight - Strict I/os - Continue the patient's p.o. Angelica -Obtain Echo - Full code, discussed the goals of care with the patient family members and diabetic that in the chart -PT/OT katiaal -Discussed the care with the pt and her family members, answered all their questions
--- NOTE | 2025-07-25 15:17 | SWNOTE1 ---
Important Message from Medicare reviewed and discussed with patient. Pt. verbalized understanding and signed the form. Original given to patient and copy placed in patient?s chart.
--- NOTE | 2025-07-25 15:19 | SWNOTE1 ---
SW met with pt to discuss dc needs. Pt daughter in room as well. Pt lives at home with her . Pt is post surgery (about 12 weeks). Last week was first time she went full weight bearing. She voiced it went well and her recovery has been well. She does use a walker. Pt is going to outpt therapy and she would like to resume outpt therapy. SW to follow as needed.
[2025-07-25] MEDS: LOSARTAN POTASSIUM 25 MG TABLET PO (16:18)
[2025-07-25] MEDS: VENLAFAXINE HCL ER 150 MG CAPSULE PO (16:18)
[2025-07-25] MEDS: METOPROLOL SUCCINATE 50 MG TAB.ER.24H 200 MG PO (16:18)
[2025-07-25] MEDS: AMOXICILLIN 500 MG CAPSULE PO ×2 (16:39→21:19)
[2025-07-25] MEDS: PANTOPRAZOLE SODIUM 40 MG TABLET.DR PO (20:32)
[2025-07-25] MEDS: HYDROXYCHLOROQUINE SULFATE 200 MG TABLET PO (20:32)
[2025-07-25] MEDS: APIXABAN 5 MG TABLET PO (20:32)
[2025-07-25] MEDS: ACETAMINOPHEN 500 MG TABLET 1000 MG PO (20:33)
[2025-07-25] MEDS: CELECOXIB 100 MG CAPSULE 200 MG PO (20:33)
[2025-07-25] MEDS: FERROUS SULFATE 325 MG TABLET PO (21:19)
[2025-07-25] MEDS: ATORVASTATIN CALCIUM 40 MG TABLET PO (21:19)
[2025-07-25] MEDS: AMIODARONE HCL 200 MG TABLET PO (21:19)
[2025-07-26] VITALS (21 sets, daily range): BP systolic 101–158; BP diastolic 65–84; PULSE 75–89; TEMP 36.3–36.8; O2SAT 90–98
[2025-07-26] MEDS: ACETAMINOPHEN 500 MG TABLET 1000 MG PO ×4 (02:54→20:46)
[2025-07-26] MEDS: AMOXICILLIN 500 MG CAPSULE PO ×3 (05:31→22:05)
[2025-07-26] MEDS: LEVOTHYROXINE SODIUM 75 MCG TABLET PO (05:31)
[2025-07-26] MEDS: FUROSEMIDE 40 MG/4 ML VIAL IVP ×2 (05:32→17:00)
[2025-07-26 05:52] LABS: Hematocrit 40.1 % (36.0-48.0); Hemoglobin 13.4 g/dL (12.0-16.0); Immature Granulocytes Abs Auto 0.02 10^3/uL (0.00-0.03); Immature Granulocytes Pct Auto 0.3 % (0.0-0.5); Lymphocytes Absolute Auto 1.0 10^3/uL (1.2-3.8); Mean Corpuscular HGB Conc 33.4 g/dL (29.9-35.2); Mean Corpuscular Hemoglobin 32.4 pg (26.7-34.0); Mean Corpuscular Volume 96.9 fL (81.0-99.0); Platelet Count 203 10^3/uL (150-450); Red Blood Count 4.14 10^6/uL (4.20-5.40); White Blood Count 6.2 10^3/uL (4.0-11.0)
[2025-07-26 06:16] LABS: Alanine Aminotransferase 35 U/L (14-59); Albumin Globulin Ratio 1.0; Albumin Level 3.1 g/dL (3.4-5.0); Alkaline Phosphatase 134 U/L (46-116); Anion Gap 13.8; Aspartate Amino Transferase 20 U/L (15-37); Blood Urea Nitrogen 16.0 mg/dL (7.0-18.0); Calcium 8.5 mg/dL (8.5-10.1); Carbon Dioxide 25.8 mmol/L (21.0-32.0); Chloride 106 mmol/L (98-107); Estimated GFR (African America >60 (>=60 mL/min/1.73m^2); Estimated GFR (Non-African Ame 56 (>=60 mL/min/1.73m^2); Globulin 3.1 g/dL; Glucose 109 mg/dL (74-106); Magnesium 1.7 mg/dL (1.8-2.4); Potassium 3.6 mmol/L (3.5-5.1); Sodium 142 mmol/L (136-145); Total Protein 6.2 g/dL (6.4-8.2)
[2025-07-26] MEDS: VENLAFAXINE HCL ER 150 MG CAPSULE PO (08:43)
[2025-07-26] MEDS: HYDROXYCHLOROQUINE SULFATE 200 MG TABLET PO ×2 (08:43→20:46)
[2025-07-26] MEDS: CHOLECALCIFEROL (VITAMIN D3) 25 MCG/1,000 UNITS TABLET 50 MCG PO (08:43)
[2025-07-26] MEDS: L. ACIDOPHILUS/L.BULGARICUS 1 PACKET GRAN.PACK PO (08:43)
[2025-07-26] MEDS: LOSARTAN POTASSIUM 25 MG TABLET PO (08:43)
[2025-07-26] MEDS: APIXABAN 5 MG TABLET PO ×2 (08:43→20:46)
[2025-07-26] MEDS: CELECOXIB 100 MG CAPSULE 200 MG PO ×2 (08:44→20:46)
[2025-07-26] MEDS: PANTOPRAZOLE SODIUM 40 MG TABLET.DR PO ×2 (08:44→20:46)
[2025-07-26] MEDS: MAGNESIUM SULFATE IN WATER 2 GM/50 ML PREMIX IV (10:06)
--- NOTE | 2025-07-26 10:15 | CM.NOTE ---
Rounds made with Dr. Castro, discussed with pt diagnosis and plan of care. Pt inpatient status, no discharge today. Pt will have PT and OT evaluation today for discharge planning.
--- NOTE | 2025-07-26 12:03 | P.IMPN_ITS ---
Progress Note: A&P Assessment and Plan (1) CHF exacerbation: (2) Debility: Plan (1) CHF exacerbation: (2) Debility: Plan Acute diastolic CHF exacerbation, NYHA class III, stage C History of atrial fibrillation and recurrent DVT Debility and frailty Hypomagnesemia - Admit patient to medical floor with telemetry - Start IV Lasix 40 mg twice daily - Continue with the patient's metoprolol succinate 200 mg p.o. daily and spironolactone 50 mg p.o. daily - For better BP control and may start ARB, losartan 25 mg p.o. daily - Daily weight - Strict I/os - Continue the patient's p.o. Eliquis -Obtain Echo - Full code, discussed the goals of care with the patient family members and diabetic that in the chart -PT/OT eval -Discussed the care with the pt and her family members, answered all their questions 07/26/2025 patient doing better today, I will continue with another day with IV diuresis hopefully will discharge her tomorrow if she continues to put more urine output as well as if her weight is improving. She is in agreement with the treatment plan. She did have an echo that showed grade 2 diastolic dysfunction as well as severe concentric LVH with normal systolic function of 60 to 65%. Moderate biatrial dilatation, mild to moderate mitral and aortic regurgitation. RVSP of 40 mmHg. Moderately dilated ascending aorta measuring 4.6 cm. PT/OT evaluation appreciated discussed plan with the patient and their family members. Answered all their questions Internal Medicine - PN: Subj Subjective Interval history: Patient seen and examined at bedside. No events overnight. She is putting out around 2.5 L of urine. States that he feels much better than when she first came in. She is able to walk to the bathroom with no shortness of breath. Denies any chest pain or shortness of breath or dyspnea exertion today. She had her family members in the room, she had some questions about the echo that was done yesterday Exam Narrative Exam Narrative: General: Well-appearing and in no apparent distress. Very pleasant and cooperative. Ill-appearing but not in acute distress Skin: Warm, dry, no pallor noted. No rash. Head: Normocephalic, atraumatic. Neck: Supple, non-tender, no JVD no lymphadenopathy no thyromegaly Cardiovascular: Regular Rate and Rhythm without murmur, gallop or rub. Respiratory: No accessory muscle use or respiratory distress. Does have bilateral wheezes and crackles, decreased bilateral air entry. Patient work of breathing is much better than yesterday Back: No midline thoracic or lumbar vertebral tenderness. No CVA tenderness Musculoskeletal: normal ROM, no calf or popliteal tenderness, healing wound on the medial aspect of the right ankle, Bilateral 1+ pitting edema GI: Abdomen is soft, non-distended. Normal bowel sounds. No masses appreciated. No tenderness to palpation. No rebound, guarding, or rigidity noted. Neurological: A&O x4. No cranial nerve dysfunction observed. No truncal ataxia. Moves all extremities. Sensation intact. Constitutional Vital Signs, click to edit/add: Last Vital Signs Temp 97.3 F L 07/26/25 11:54 Pulse 79 07/26/25 11:54 Resp 25 H 07/26/25 11:54 BP 120/75 07/26/25 11:54 Pulse Ox 97 07/26/25 11:54 O2 Del Method Room Air 07/26/25 11:54 Internal Medicine - PN: Obj Da Labs Labs: Laboratory Results - last 24 hr 07/25/25 07/26/25 13:59 05:38 WBC 6.2 RBC 4.14 L Hgb 13.4 Hct 40.1 MCV 96.9 MCH 32.4 MCHC 33.4 RDW 13.9 Plt Count 203 MPV 10.4 Neut % (Auto) 68.5 Lymph % (Auto) 15.7 L [place] % (Auto) 11.7 Eos % (Auto) 3.2 Baso % (Auto) 0.6 Neut # (Auto) 4.3 Lymph # (Auto) 1.0 L [place] # (Auto) 0.7 Eos # (Auto) 0.2 Baso # (Auto) 0.0 Abs Immat Gran (auto) 0.02 Imm/Tot Granulo (auto) 0.3 Sodium 142 Potassium 3.6 Chloride 106 Carbon Dioxide 25.8 Anion Gap 13.8 BUN 16.0 Creatinine 0.98 Est GFR ( Amer) >60 Est GFR (Non-Af Amer) 56 L BUN/Creatinine Ratio 16.3 Glucose 109 H Calcium 8.5 Phosphorus 4.2 Magnesium 1.7 L Total Bilirubin 0.6 AST 20 ALT 35 Alkaline Phosphatase 134 H Troponin I High Sens 12.9 Total Protein 6.2 L Albumin 3.1 L Globulin 3.1 Albumin/Globulin Ratio 1.0
[2025-07-26] MEDS: AMIODARONE HCL 200 MG TABLET PO (22:04)
[2025-07-26] MEDS: ATORVASTATIN CALCIUM 40 MG TABLET PO (22:05)
[2025-07-26] MEDS: FERROUS SULFATE 325 MG TABLET PO (22:05)
[2025-07-26] MEDS: METOPROLOL SUCCINATE 100 MG TAB.ER.24H 200 MG PO (22:05)
[2025-07-27] VITALS (11 sets, daily range): BP systolic 121–141; BP diastolic 61–80; PULSE 76–88; TEMP 36.6; O2SAT 90–96; BMI 42.3
[2025-07-27] MEDS: ACETAMINOPHEN 500 MG TABLET 1000 MG PO (05:27)
[2025-07-27] MEDS: AMOXICILLIN 500 MG CAPSULE PO ×2 (05:28→13:28)
[2025-07-27] MEDS: FUROSEMIDE 40 MG/4 ML VIAL IVP (05:28)
[2025-07-27] MEDS: LEVOTHYROXINE SODIUM 75 MCG TABLET PO (05:30)
[2025-07-27 05:35] LABS: Hematocrit 40.7 % (36.0-48.0); Hemoglobin 13.4 g/dL (12.0-16.0); Immature Granulocytes Abs Auto 0.02 10^3/uL (0.00-0.03); Immature Granulocytes Pct Auto 0.3 % (0.0-0.5); Lymphocytes Absolute Auto 1.0 10^3/uL (1.2-3.8); Mean Corpuscular HGB Conc 32.9 g/dL (29.9-35.2); Mean Corpuscular Hemoglobin 32.0 pg (26.7-34.0); Mean Corpuscular Volume 97.1 fL (81.0-99.0); Platelet Count 222 10^3/uL (150-450); Red Blood Count 4.19 10^6/uL (4.20-5.40); White Blood Count 6.0 10^3/uL (4.0-11.0)
[2025-07-27 06:05] LABS: Alanine Aminotransferase 32 U/L (14-59); Albumin Globulin Ratio 0.9; Albumin Level 2.9 g/dL (3.4-5.0); Alkaline Phosphatase 129 U/L (46-116); Anion Gap 11.1; Aspartate Amino Transferase 20 U/L (15-37); Blood Urea Nitrogen 20.0 mg/dL (7.0-18.0); Calcium 8.5 mg/dL (8.5-10.1); Carbon Dioxide 29.6 mmol/L (21.0-32.0); Chloride 102 mmol/L (98-107); Estimated GFR (African America 52 (>=60 mL/min/1.73m^2); Estimated GFR (Non-African Ame 43 (>=60 mL/min/1.73m^2); Globulin 3.2 g/dL; Glucose 95 mg/dL (74-106); Magnesium 1.8 mg/dL (1.8-2.4); Potassium 3.7 mmol/L (3.5-5.1); Sodium 139 mmol/L (136-145); Total Protein 6.1 g/dL (6.4-8.2)
[2025-07-27] MEDS: CELECOXIB 100 MG CAPSULE 200 MG PO (08:30)
[2025-07-27] MEDS: APIXABAN 5 MG TABLET PO (08:30)
[2025-07-27] MEDS: CHOLECALCIFEROL (VITAMIN D3) 25 MCG/1,000 UNITS TABLET 50 MCG PO (08:31)
[2025-07-27] MEDS: LOSARTAN POTASSIUM 25 MG TABLET PO (08:32)
[2025-07-27] MEDS: L. ACIDOPHILUS/L.BULGARICUS 1 PACKET GRAN.PACK PO (08:32)
[2025-07-27] MEDS: HYDROXYCHLOROQUINE SULFATE 200 MG TABLET PO (08:32)
[2025-07-27] MEDS: PANTOPRAZOLE SODIUM 40 MG TABLET.DR PO (08:34)
[2025-07-27] MEDS: VENLAFAXINE HCL ER 150 MG CAPSULE PO (08:34)
--- NOTE | 2025-07-27 09:45 | CM.NOTE ---
Rounds made with Dr. Castro, pt will discharge to home today. Pt will have cardiology consult prior to discharge. Pt will f/u with PCP, rolling machine tender, and transportation escort. Pt also has outpatient PT and will continue PT.
--- NOTE | 2025-07-27 10:36 | NUTR.NU ---
Dietary consult completed this date. Interviewed Rosa at bedside re diet. Discussed reduced sodium diet and sources of fat. Planning healthy meals brochure given. Rosa shared her food habits and recent medical treatment. She is planning to be discharged today.
--- NOTE | 2025-07-27 11:09 | P.DS_ITS ---
DS: Providers Provider Date of admission: 07/25/25 12:18 Primary care physician: RIO TREVIÑO Consults: 07/25/25 13:42 Occupational Therapy Eval and Treat Routine Reason for consultation: placement Physical Therapy Eval and Treat Routine Reason for consultation: placement 07/26/25 09:07 Consult to Cardiology Routine Reason for consultation: CHF exacerbation Anticipated date of discharge: 07/27/25 DS: Diagnosis Discharge Diagnosis (1) CHF exacerbation: (2) Debility: Plan As above DS: Summary Hospital Course Hospital Course: This is a 70 y.o female with past medical Hx of hypertension, diastolic CHF, atrial fibrillation with watchman device, on chronic anticoagulation for recurrent DVTs, HTN, dyslipidemia, morbid obesity, here for shortness of breath that started 2 days ago. History obtained with the patient, patient's family members at bedside, chart review, and ED staff. Patient states that 2 days ago she started having shortness of breath however over the last night she woke up having severe difficulty catching her breath. Denies any chest pain or nausea or vomiting. Denies any fever chills or cough. She is not able to keep track of her weight. Denies any worsening leg swelling however her legs are swollen, denies any orthopnea or PND. In the ED, patient is hypertensive saturating 93% on room air. CBC was not remarkable. INR is 1. CMP showed magnesium of 1.5, BUN and creatinine were normal. proBNP was 1914. Troponin x 2 was negative chest x-ray did show signs of fluid overload. EKG showed sinus rhythm with no ischemic changes. Patient received 1 dose of IV Lasix 40 mg, 1 dose of DuoNebs 3 mL. And 1 dose of nitroglycerin sublingual 0.4 mg once. Patient to be admitted under hospital service for further workup and management. Patient follows with Dr. Johns, application architect. She had a PHYLLIS on 09/19/2024 that showed EF of 55-60%, Mild concentric LVH, LV diastolic dysfunction. Left atrial occlusive device was in place. Moderate Pulmonary HTN, mild aortic root dilatation at 4.4 cm. Mild aortic regurgitation. Mild Mitral and tricuspid regurgitation. No pericardial effusion at the time. (1) CHF exacerbation: (2) Debility: Plan Acute diastolic CHF exacerbation, NYHA class III, stage C History of atrial fibrillation and recurrent DVT Debility and frailty Hypomagnesemia - Admit patient to medical floor with telemetry - Start IV Lasix 40 mg twice daily - Continue with the patient's metoprolol succinate 200 mg p.o. daily and spironolactone 50 mg p.o. daily - For better BP control and may start ARB, losartan 25 mg p.o. daily - Daily weight - Strict I/os - Continue the patient's p.o. Eliquis -Obtain Echo - Full code, discussed the goals of care with the patient family members and diabetic that in the chart -PT/OT eval -Discussed the care with the pt and her family members, answered all their questions 07/26/2025 patient doing better today, I will continue with another day with IV diuresis hopefully will discharge her tomorrow if she continues to put more urine output as well as if her weight is improving. She is in agreement with the treatment plan. She did have an echo that showed grade 2 diastolic dysfunction as well as severe concentric LVH with normal systolic function of 60 to 65%. Moderate biatrial dilatation, mild to moderate mitral and aortic regurgitation. RVSP of 40 mmHg. Moderately dilated ascending aorta measuring 4.6 cm. PT/OT evaluation appreciated discussed plan with the patient and their family members. Answered all their questions 07/27/2025 Status at Discharge Overall status at discharge: patient is back to baseline Time Spent with Patient Time attestation: Total time spent providing and/or coordinating discharge services: Time spent: greater than 30 minutes Exam Constitutional Vital Signs, click to edit/add: Last Vital Signs Temp 98 F 07/27/25 07:41 Pulse 78 07/27/25 10:00 Resp 18 07/27/25 07:41 BP 141/80 07/27/25 07:41 Pulse Ox 91 L 07/27/25 07:41 O2 Del Method Room Air 07/27/25 07:41 DS: Data Data Completed and Pending Labs on day of discharge: Labs from last 24 hours 07/27/25 04:57 WBC 6.0 RBC 4.19 L Hgb 13.4 Hct 40.7 MCV 97.1 MCH 32.0 MCHC 32.9 RDW 13.8 Plt Count 222 MPV 10.6 Neut % (Auto) 66.6 Lymph % (Auto) 16.5 L [place] % (Auto) 12.2 H Eos % (Auto) 3.7 Baso % (Auto) 0.7 Neut # (Auto) 4.0 Lymph # (Auto) 1.0 L [place] # (Auto) 0.7 Eos # (Auto) 0.2 Baso # (Auto) 0.0 Abs Immat Gran (auto) 0.02 Imm/Tot Granulo (auto) 0.3 Sodium 139 Potassium 3.7 Chloride 102 Carbon Dioxide 29.6 Anion Gap 11.1 BUN 20.0 H Creatinine 1.23 H Est GFR ( Amer) 52 L Est GFR (Non-Af Amer) 43 L BUN/Creatinine Ratio 16.3 Glucose 95 Calcium 8.5 Phosphorus 4.6 Magnesium 1.8 Total Bilirubin 0.5 AST 20 ALT 32 Alkaline Phosphatase 129 H Total Protein 6.1 L Albumin 2.9 L Globulin 3.2 Albumin/Globulin Ratio 0.9 Discharge Plan Discharge Disposition: Home, Self-Care Discharge Medications: New metoprolol succinate 100 mg Tablet Extended Release 24 Hr 200 mg PO QHS 30 Days Qty: 60 0RF Continued atorvastatin 40 mg tablet 40 mg PO .QHS venlafaxine [Effexor XR] 150 mg capsule,extended release 24hr 150 mg PO DAILY hydroxychloroquine 200 mg tablet 200 mg PO BID Patient Comments: with food cholecalciferol (vitamin D3) [D3 DOTS] 50 mcg (2,000 unit) tablet 50 mcg PO DAILY Eliquis 5 mg tablet 5 mg PO Q12H furosemide 20 mg tablet 20 mg PO QDAY colestipol 1 gram tablet 2 g PO QAM ferrous sulfate [FeroSul] 325 mg (65 mg iron) tablet 325 mg PO .QHS pantoprazole 40 mg tablet,delayed release (DR/EC) 40 mg PO Q12H alendronate 70 mg tablet 70 mg PO .weekly Patient Comments: ON THURSDAY Align Dualbiotic 500 million cell-1.25 gram tablet,chewable 1 tab PO DAILY colestipol [Colestid] 1 gram tablet 3 g PO .QHS metoprolol succinate 200 mg tablet extended release 24 hr 200 mg PO .QHS amiodarone 200 mg tablet 200 mg PO .QHS levothyroxine 75 mcg tablet 75 mcg PO .ACB mesalamine 1.2 gram tablet,delayed release (DR/EC) 2.4 g PO BID ascorbic acid (vitamin C) [C-500] 500 mg tablet 500 mg PO DAILY multivitamin Tablet 1 tab PO DAILY B-complex with vitamin C Tablet 1 tab PO DAILY Changed amoxicillin 500 mg capsule 500 mg PO Q12H Qty: 0 0RF Patient Comments: 07/24/25-08/02/25 FOR TOOTH INFECTION Discontinued celecoxib 200 mg capsule 200 mg PO BID metoprolol tartrate 25 mg tablet 25 mg PO DAILY PRN (Reason: AFIB) Print Language: Australian Forms: Portal Instructions Follow Up Appointments: Dr. Johns (cardiology) - . 08/01 @ 9:20am [phone] Dr. Treviño (PCP) - Thu. 08/04 @ 9am [phone] Dr Radu Dunn
--- NOTE | 2025-07-27 13:16 | CM.NOTE ---
Provided pt with outpatient order for lab testing on 07/31. Pt verbalizes understanding. Faxed order to lab and also copy placed in pt's chart. Updated RN that cardiology consult had been cancelled and Dr. Castro placing discharge order.
--- NOTE | 2025-07-27 13:43 | PC.NURSE ---
iv and tele dc'd. discharge instructions given to pt, verbalized understanding. belongings packed per pt, taken to exit via wheelchair, discharged to private vehicle.
--- NOTE | 2025-07-28 14:16 | CM.DCFOLLOWU ---
Person spoke with: Rosa How are you feeling? Good How is your pain? Better Did you understand your discharge instructions? Yes Do you have any questions about your discharge instructions? No Were you given any prescriptions at discharge? No Were you able to get your prescriptions filled? N/A Do you understand how to take your medications as ordered? Yes Do you have any questions about your follow up appointment and do you plan to keep your follow up appointment? No questions. She plans on keeping all her follow up appts. Is there anything else that you would like to discuss? No Questions/Comments/Concerns/Other:
== END 2025-07-27 13:44 | disposition home or self-care (01) | DRG 291 ==
LOC: ER 11:28 → MS 12:21
PROVIDERS: Admitting Provider Student in an Organized Health Care Education/Training Program; Emergency Provider Emergency Medicine; PCP Family Medicine; Visit Provider Student in an Organized Health Care Education/Training Program
DX: I11.0 Hypertensive heart disease with heart failure (principal); I50.33 Acute on chronic diastolic (congestive) heart failure; I48.91 Unspecified atrial fibrillation; E78.5 Hyperlipidemia, unspecified; Z95.818 Presence of other cardiac implants and grafts; Z79.01 Long term (current) use of anticoagulants; Z86.718 Personal history of other venous thrombosis and embolism; Z79.899 Other long term (current) drug therapy; E83.42 Hypomagnesemia; I08.0 Rheumatic disorders of both mitral and aortic valves
CPT/HCPCS: 36415; 71045; 80053; 83735; 83880; 84100; 84484; 85025; 85378; 85610; 87804; 87811; 93005; 93306; 94640; 96365; 96375; 97161; 97165; 99285; J1938; J3475

== ENCOUNTER 2025-07-31 11:43 | Outpatient (OUT) | payer MEDICARE, OTHER, SELFPAY ==
[2025-07-31 12:33] LABS: Alanine Aminotransferase 47 U/L (14-59); Albumin Globulin Ratio 1.1; Albumin Level 3.5 g/dL (3.4-5.0); Alkaline Phosphatase 153 U/L (46-116); Anion Gap 11.3; Aspartate Amino Transferase 35 U/L (15-37); Blood Urea Nitrogen 25.0 mg/dL (7.0-18.0); Calcium 9.4 mg/dL (8.5-10.1); Carbon Dioxide 30.1 mmol/L (21.0-32.0); Chloride 105 mmol/L (98-107); Estimated GFR (African America >60 (>=60 mL/min/1.73m^2); Estimated GFR (Non-African Ame 51 (>=60 mL/min/1.73m^2); Globulin 3.1 g/dL; Glucose 97 mg/dL (74-106); Potassium 4.4 mmol/L (3.5-5.1); Sodium 142 mmol/L (136-145); Total Protein 6.6 g/dL (6.4-8.2)
== END 2025-07-31 11:44 | disposition home or self-care (01) ==
LOC: LAB 11:49
PROVIDERS: PCP Family Medicine
DX: I50.9 Heart failure, unspecified (principal)
CPT/HCPCS: 36415; 80053